=== PATIENT | female | born 1960 | race Hispanic/Latino ===

== ENCOUNTER 2016-08-04 23:00 | Inpatient (IN) | payer MEDICARE ==
[2016-08-04] MEDS ORDERED: NACL 0.9% 1000 ML 2,000 ML ONE (23:32)
[2016-08-04] MEDS ORDERED: NACL 0.9% 1000 ML 1,000 ML IV ONE (23:32)
[2016-08-04] MEDS ORDERED: ARTIFICIAL TEARS OPHTH OINT OU PRN (23:33)
[2016-08-04] MEDS ORDERED: VASELINE LIP THERAPY TP PRN (23:33)
[2016-08-04] MEDS ORDERED: NACL 0.9% 1000 ML 2,000 ML IV ONE (23:35)
--- NOTE | 2016-08-04 23:39 | Emergency Department Report ---
Blank Doc - Documentation Documentation: EMERGENCY DEPARTMENT PROCEDURE NOTE: ENDOTRACHEAL INTUBATION DATE 08/[address] Marquez DIAGNOSIS altered mental status PROCEDURE PERFORMED Endotracheal Intubation. ANESTHESIA Ketamine administered for sedation preintubation COMPLICATIONS None. INDICATIONS FOR PROCEDURE The patient is [id number] s/p respiratory distress/altered emtnal status. The patient is in need of airway maintenance and protection. DESCRIPTION OF PROCEDURE IN DETAIL The patient was lying in the supine position. Preoxygenation via [facemask + BVM ] was provided for a minimum of 3 minutes. The patient had continuous cardiac as well as pulse oximetry monitoring during the procedure. Rapid sequence induction was provided by administration of KETAMINE An adult glidescope was used to directly visualize the vocal cords. 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 A 8mm endotracheal tube was visualized advancing along the bougie between the cords to a level of 22cm at lipTube placement was also noted by fogging in the tube, equal and bilateral breath sounds, no sounds over the epigastrium, and end-tidal colorimetric monitoring. The cuff was then inflated with 10ccs of air and the tube secured using a commercially available device. Respiratory therapy at bedside applied ventilator Supervised by Dr. Marquez
--- NOTE | 2016-08-04 23:51 | Emergency Department Report ---
ED General Adult HPI - General Chief complaint: Chest Pain Stated complaint: GENERAL ILLNESS Time Seen by Provider: 08/04/16 23:30 Source: EMS (verbal report received from EMS. ems notes not available at time of chart dictation), RN notes reviewed, old records reviewed Mode of arrival: Stretcher Limitations: Altered Mental Status - History of Present Illness Initial comments: This is a 56-year-old female. She is previously unknown to me. As per review of past medical records, patient has a history of COPD, cardiomyopathy, known history of stents, underlying psychiatric disease, ejection fraction of 40-45%, who presents to the ER with altered mental status in the context of a probable Vicodin overdose. As per verbal report from EMS, the overdose happened at least 2-3 hours prior to presentation. EMS reports that the patient was altered at home, sitting on a porch, when family contacted 911. Upon arrival to the ER, the patient was altered, combative, would not respond to verbal the escalation techniques or show of force, was noted to be hypoxic. Because of this, the patient was intubated. The patient was placed on a nasal cannula at 15 L/m, she received bag valve mask ventilation, and she was induced with 100 mg of ketamine. The patient was intubated with video laryngoscopy and bougie assistance by physician Asst. Bhatia under my direct supervision. The patient did not desaturate. Immediately after intubation, the patient was paralyzed with rocuronium. Shortly after intubation, the patient was noted to be hypotensive with a blood pressure in the 70s, and 2 L of IV fluid were ordered wide open. Patient's initial EKG was somewhat concerning for acute coronary syndrome, the EKG was transmitted to the prescription clerk, Dr. Bettencourt. Given history of altered mental status, ingestion/overdose, hypoxia requiring intubation, Dr. Bettencourt did not recommend activation of the catheterization lab. In addition, an orogastric tube was placed, and coffee-ground material was returned, and a guaiac examination demonstrated the patient was guaiac positive with brown stool. Therefore, the patient is not a thrombolysis candidate, she sounded appropriate candidate for the catheterization lab, she is appropriate for systemic anticoagulation at this time. Furthermore, right-sided cardiac leads were not consistent with inferior wall STEMI. Furthermore, prior EKG from 07/06/[address] abnormality in the inferior leads. The case was discussed with the integration analyst on-call, Dr. Cannon, who agreed to see her in consultation, and agreed with initiation of Protonix. The case was discussed with the critical care physician, Dr. Martin, who agreed with placement in the ICU. The patient is not a charcoal candidate if she presented more than one hour after ingestion. Laboratory studies, CT scan of the brain are pending. Because of suicidality, a 1013 form is filled out. -: unknown Consistency: constant Improves with: none Worsens with: none Associated Symptoms: other (per hpi) - Related Data Home Medications Medication Instructions Recorded Confirmed Last Taken Methocarbamol [Robaxin TAB] 750 mg PO BID 10/28/14 07/16/16 1 Day Ago Omeprazole [PriLOSEC] 40 mg PO BID 10/28/14 07/16/16 1 Day Ago Previous Rx's Medication Instructions Recorded Last Taken Type ALBUTEROL Inhaler [ProAir HFA 2 puff IH QID PRN #1 inhalation 10/31/14 1 Day Ago Rx Inhaler] Calc Carb/Vit D 500 mg-200 Uni 2 each PO BID tablet 10/31/14 1 Day Ago Rx [Oysco D 500 mg-200 Unit] oxyCODONE /ACETAMINOPHEN [Percocet 1 tab PO Q6HR PRN #20 tablet 10/31/14 1 Day Ago Rx 5/325 mg] Aspirin EC [Aspirin Enteric Coated 81 mg PO QDAY #30 tablet 07/16/16 Unknown Rx TAB] Clopidogrel [Plavix] 75 mg PO QDAY #30 tablet 07/16/16 Unknown Rx Furosemide [Lasix TAB] 20 mg PO QDAY #30 tablet 07/16/16 Unknown Rx Ipratropium/Albuterol Sulfate 1 ampul IH TIDRT #100 ampul.neb 07/16/16 Unknown Rx [Duoneb 0.5 mg-3 mg/3 ml Soln] Levofloxacin [Levaquin TAB] 500 mg PO QDAY #7 tablet 07/16/16 Unknown Rx Levofloxacin [Levaquin TAB] 750 mg PO Q24H #5 tablet 07/16/16 Unknown Rx Lisinopril [Zestril TAB] 10 mg PO QDAY #30 tablet 07/16/16 Unknown Rx Metoprolol Xl [Metoprolol 100 mg PO QDAY #30 tablet 07/16/16 Unknown Rx SUCCINATE ER TAB] Potassium Chloride [K-Dur] 20 meq PO Q12H #30 tablet 07/16/16 Unknown Rx Prednisone [predniSONE] 10 mg PO QDAY #40 tab 07/16/16 Unknown Rx Venlafaxine HCl [Venlafaxine] 100 mg PO TIDWM #30 tablet 07/16/16 Unknown Rx Venlafaxine [Effexor] 75 mg PO TID #30 tablet 07/16/16 Unknown Rx predniSONE [Deltasone] 50 mg PO QDAY #8 tab 07/16/16 Unknown Rx Allergies Allergy/AdvReac Type Severity Reaction Status Date / Time phenobarbital Allergy Unknown Verified 10/28/14 09:33 ED Review of Systems ROS: Stated complaint: GENERAL ILLNESS Other details as noted in HPI Comment: Unobtainable due to pts medical conditions ED Past Medical Hx - Past Medical History Hx Hypertension: Yes Hx Heart Attack/AMI: Yes (stent placed June 2016) Hx Congestive Heart Failure: No (patient denies) Hx Diabetes: No Hx GERD: Yes Hx Liver Disease: Yes (HEP C) Hx Asthma: No Hx COPD: Yes (3 liter home oxygen) - Surgical History Hx Coronary Stent: Yes (June 2016) Additional Surgical History: RONNY, heart stents - Social History Smoking Status: Unknown if ever smoked - Medications Home Medications: Home Medications Medication Instructions Recorded Confirmed Last Taken Type Methocarbamol [Robaxin TAB] 750 mg PO BID 10/28/14 07/16/16 1 Day Ago History Omeprazole [PriLOSEC] 40 mg PO BID 10/28/14 07/16/16 1 Day Ago History ALBUTEROL Inhaler [ProAir HFA 2 puff IH QID PRN #1 inhalation 10/31/14 07/16/16 1 Day Ago Rx Inhaler] Calc Carb/Vit D 500 mg-200 Uni 2 each PO BID tablet 10/31/14 07/16/16 1 Day Ago Rx [Oysco D 500 mg-200 Unit] oxyCODONE /ACETAMINOPHEN [Percocet 1 tab PO Q6HR PRN #20 tablet 10/31/14 1 Day Ago Rx 5/325 mg] Aspirin EC [Aspirin Enteric Coated 81 mg PO QDAY #30 tablet 07/16/16 Unknown Rx TAB] Clopidogrel [Plavix] 75 mg PO QDAY #30 tablet 07/16/16 Unknown Rx Furosemide [Lasix TAB] 20 mg PO QDAY #30 tablet 07/16/16 Unknown Rx Ipratropium/Albuterol Sulfate 1 ampul IH TIDRT #100 ampul.neb 07/16/16 Unknown Rx [Duoneb 0.5 mg-3 mg/3 ml Soln] Levofloxacin [Levaquin TAB] 500 mg PO QDAY #7 tablet 07/16/16 Unknown Rx Levofloxacin [Levaquin TAB] 750 mg PO Q24H #5 tablet 07/16/16 Unknown Rx Lisinopril [Zestril TAB] 10 mg PO QDAY #30 tablet 07/16/16 Unknown Rx Metoprolol Xl [Metoprolol 100 mg PO QDAY #30 tablet 07/16/16 Unknown Rx SUCCINATE ER TAB] Potassium Chloride [K-Dur] 20 meq PO Q12H #30 tablet 07/16/16 Unknown Rx Prednisone [predniSONE] 10 mg PO QDAY #40 tab 07/16/16 Unknown Rx Venlafaxine HCl [Venlafaxine] 100 mg PO TIDWM #30 tablet 07/16/16 Unknown Rx Venlafaxine [Effexor] 75 mg PO TID #30 tablet 07/16/16 Unknown Rx predniSONE [Deltasone] 50 mg PO QDAY #8 tab 07/16/16 Unknown Rx ED Physical Exam - General Limitations: No Limitations, Altered Mental Status General appearance: anxious, in distress - Head Head exam: Present: atraumatic, normocephalic - Eye Eye exam: Present: normal appearance, other (patient's pupils are small but reactive to light) - ENT ENT exam: Present: normal exam, mucous membranes dry, other (copious secretions noted in the oropharynx) - Neck Neck exam: Present: normal inspection, full ROM. Absent: tenderness, meningismus - Respiratory Respiratory exam: Present: respiratory distress. Absent: wheezes, rales, rhonchi, stridor - Cardiovascular Cardiovascular Exam: Present: normal rhythm, tachycardia, normal heart sounds. Absent: systolic murmur, diastolic murmur, rubs, gallop - GI/Abdominal GI/Abdominal exam: Present: soft, normal bowel sounds, other (old-appearing ecchymoses are noted on the anterior abdominal wall). Absent: distended, tenderness, guarding, rebound, rigid, pulsatile mass - Rectal Rectal exam: Present: heme (+) stool, other (Brown stool is noted on rectal examination) - External exam: Present: normal external exam - Extremities Exam Extremities exam: Present: normal inspection, full ROM, normal capillary refill. Absent: calf tenderness - Back Exam Back exam: Present: normal inspection. Absent: paraspinal tenderness - Neurological Exam Neurological exam: Present: altered, other (patient is moving for extremity spontaneously prior to intubation) - Psychiatric Psychiatric exam: Present: suicidal ideation - Skin Skin exam: Present: ecchymosis ED Course Vital Signs 08/04/16 08/04/16 08/04/16 23:08 23:20 23:26 Temperature Pulse Rate 125 H 114 H 116 H Respiratory 25 H 14 18 Rate Blood Pressure 78/32 O2 Sat by Pulse 77 L Oximetry 08/04/16 08/04/16 08/04/16 23:30 23:32 23:36 Temperature 98.4 F Pulse Rate 114 H 116 H Respiratory 18 19 Rate Blood Pressure 78/32 78/32 O2 Sat by Pulse Oximetry 08/04/16 08/04/16 08/04/16 23:40 23:46 23:50 Temperature Pulse Rate 117 H 121 H 119 H Respiratory 18 15 22 Rate Blood Pressure 78/32 78/32 78/32 O2 Sat by Pulse 76 L Oximetry 08/04/16 08/05/16 08/05/16 23:56 00:00 00:05 Temperature Pulse Rate 116 H 115 H 115 H Respiratory 18 18 Rate Blood Pressure 131/52 130/53 130/53 O2 Sat by Pulse 100 100 Oximetry 08/05/16 08/05/16 08/05/16 00:06 00:10 00:15 Temperature Pulse Rate 116 H 116 H 115 H Respiratory 18 18 18 Rate Blood Pressure 130/53 130/53 129/48 O2 Sat by Pulse 100 99 Oximetry 08/05/16 08/05/16 08/05/16 00:20 00:26 00:30 Temperature Pulse Rate 117 H 117 H 116 H Respiratory 18 18 23 Rate Blood Pressure 129/48 129/48 120/52 O2 Sat by Pulse 100 100 100 Oximetry 08/05/16 08/05/16 08/05/16 00:36 00:40 00:45 Temperature Pulse Rate 115 H 115 H 115 H Respiratory 23 23 23 Rate Blood Pressure 120/52 120/52 121/51 O2 Sat by Pulse 99 99 99 Oximetry 08/05/16 08/05/16 08/05/16 00:50 00:56 01:00 Temperature Pulse Rate 114 H 114 H 114 H Respiratory 23 23 23 Rate Blood Pressure 121/51 121/51 113/55 O2 Sat by Pulse 99 98 99 Oximetry 08/05/16 08/05/16 08/05/16 01:06 01:40 01:46 Temperature Pulse Rate 114 H 112 H 115 H Respiratory 23 18 23 Rate Blood Pressure 113/55 113/55 113/55 O2 Sat by Pulse 99 Oximetry 08/05/16 08/05/16 08/05/16 01:51 01:56 02:00 Temperature Pulse Rate 111 H 111 H 110 H Respiratory 17 23 23 Rate Blood Pressure 113/55 113/55 77/40 O2 Sat by Pulse 97 98 97 Oximetry 08/05/16 08/05/16 08/05/16 02:06 02:10 02:16 Temperature Pulse Rate 110 H 113 H 106 H Respiratory 23 20 20 Rate Blood Pressure 83/41 113/55 78/41 O2 Sat by Pulse 98 97 95 Oximetry 08/05/16 08/05/16 08/05/16 02:20 02:26 02:30 Temperature Pulse Rate 117 H 115 H Respiratory 23 23 Rate Blood Pressure 78/41 78/41 78/41 O2 Sat by Pulse 95 94 94 Oximetry 08/05/16 08/05/16 08/05/16 02:36 02:40 02:46 Temperature Pulse Rate 118 H 117 H 117 H Respiratory 20 23 23 Rate Blood Pressure 78/41 78/41 78/41 O2 Sat by Pulse 95 95 96 Oximetry 08/05/16 08/05/16 08/05/16 02:50 02:56 03:00 Temperature Pulse Rate 117 H 116 H 116 H Respiratory 23 23 23 Rate Blood Pressure 85/46 85/46 81/42 O2 Sat by Pulse 95 96 96 Oximetry 08/05/16 08/05/16 08/05/16 03:06 03:10 03:15 Temperature Pulse Rate 114 H 111 H 111 H Respiratory 23 23 23 Rate Blood Pressure 81/42 71/40 74/40 O2 Sat by Pulse 97 95 97 Oximetry 08/05/16 08/05/16 08/05/16 03:20 03:25 03:30 Temperature Pulse Rate 109 H 106 H 105 H Respiratory 23 23 23 Rate Blood Pressure 69/40 79/39 80/42 O2 Sat by Pulse 97 Oximetry 08/05/16 08/05/16 08/05/16 03:35 03:40 03:45 Temperature Pulse Rate 102 H 100 H 99 H Respiratory 23 23 20 Rate Blood Pressure 76/40 76/40 72/40 O2 Sat by Pulse 95 96 97 Oximetry 08/05/16 08/05/16 08/05/16 03:50 03:55 04:00 Temperature Pulse Rate 99 H 96 H 95 H Respiratory 23 23 23 Rate Blood Pressure 75/42 84/45 88/46 O2 Sat by Pulse 96 Oximetry 08/05/16 08/05/16 08/05/16 04:05 04:10 04:15 Temperature Pulse Rate 93 H 92 H 92 H Respiratory 23 25 H 25 H Rate Blood Pressure 85/45 85/44 85/46 O2 Sat by Pulse 96 97 Oximetry 08/05/16 08/05/16 08/05/16 04:20 04:25 04:30 Temperature Pulse Rate 91 H 91 H 91 H Respiratory 25 H 25 H 24 Rate Blood Pressure 90/48 86/47 94/50 O2 Sat by Pulse 96 96 Oximetry 08/05/16 04:35 Temperature Pulse Rate 91 H Respiratory 25 H Rate Blood Pressure 93/45 O2 Sat by Pulse 95 Oximetry - Reevaluation(s) Reevaluation #1: 08/05/16 00:22 Differential diagnosis: Suicidality, upper GI bleed, dehydration, UTI, pneumonia , polysubstance abuse, intracranial hemorrhage Assessment and plan: 56-year-old female with altered mental status requiring intubation and context of probable overdose. Multiple issues going on this time. Cardiology, gastroenterology, critical care page. Laboratory studies are pending. X-ray of the chest does not suggest pneumonia. Patient hemodynamically stable at this time. Patient will require admission once all of her diagnostics have returned. She will require a 1013 for suicidality. Reevaluation #2: 08/05/16 01:52 laboratory studies reviewed and are unremarkable. Noncontrast CT scan of the brain is grossly unremarkable. Formal radiology interpretation is pending. The case is presented to the Hospital physician, Dr. Kemp, who accepts the patient to her service. Reevaluation #3: 08/05/16 02:10 ct head negative d/w Sofia at poison control center recommends repeat aspirin level If aspirin level going down, no need to repeat. If aspirin level going up, they recommend repeating aspirin level every 2 hours until a level of 30 is obtained. At that time, they recommended potassium maintenance at greater than 4, arterial blood gas, bmp, and requested callback for further management recommendations. ct head negative patient hypotensive will place central line 08/05/16 02:12 08/05/16 02:13 08/05/16 02:13 08/05/16 02:14 Reevaluation #4: 08/05/16 03:11 repeat laboratory studies ordered. We discussed with Poison Control Center. respiratory rate currently 23. Initial ABG demonstrates respiratory acidosis. Repeat ABG has been ordered. Reevaluation #5: 08/05/16 04:30 repeat arterial blood gas looking improved, although still acidotic. Repeat salicylate level has decreased. - Central Line Placement Right IJ Consent Obtained: emergent situation Time Out Performed: Yes Patient Placed on Monitor/Pulse Ox: Yes MD Prep: mask, gown, gloves Central Line Prep: Povidone-Iodine 1%, Chlorhexidine scrub Local Anesthesia Used: Lidocaine 1%, with Epi Amount of Anesthesia Used (mls): 5 Ultrasound Used for Placement: Yes Central Line Lumen Inserted: triple Bloods Obtained for Lab: No Central Line Position: good blood return, sutured in place with 2-0 Dressing Applied: Tegaderm Post Procedure X-Ray: tip of catheter in good p Patient Tolerated Procedure: well Complications: none - EJ/Peripheral Line Neck L Time Out Performed: No (emergency) Indications: multiple IV sites needed Skin Cleansed in Sterile Fashion: Yes Size: 20 Dressing Placed: Tegaderm Patient Tolerated Procedure: well Additional Comments: The physician assistant operations manager under my direct supervision placed a left-sided external jugular IV to obtain IV access - Intubation Time Out Performed: Yes Sedative: Ketamine Mg Given: 100 Paralytic: Rocuronium Mg Given: 100 Laryngoscope: fiberoptic video scope Assist Device Used: Bougie ET Tube Size: 8 Tube Secured Depth (cm): 22 Tube Secured Location: teeth Tube Placement Confirmation: visualized tube passing t Patient Tolerated Procedure: well Intubation Complications: none Additional Comments: Patient is placed on a nonrebreather, and then once she is induced with ketamine , transitioned to nasal cannula at 15 L/m. She receives [id number] ventilation without desaturation. The physician assistant operations manager under my direct supervision performed video laryngoscopy, introduced a bougie catheter tip into the patient's trachea, and successfully intubated the patient without difficulty. ED Medical Decision Making - Lab Data Result diagrams: 08/07/16 04:00 08/07/16 04:00 Vital Signs 08/04/16 08/05/16 23:08 00:05 Pulse Rate 125 H 115 H Respiratory 25 H Rate Blood Pressure 130/53 O2 Sat by Pulse 77 L 100 Oximetry - EKG Data -: EKG Interpreted by Me - EKG Data 08/05/16 00:26 EKG #1 at 22:59 Sinus tachycardia, 118 bpm, normal axis, normal intervals, Q waves noted in the inferior leads, nonspecific ST abnormality in the inferior leads, as per discussion with prescription clerk, Dr. Bettencourt, this is not new STEMI criteria. EKG #2 demonstrates sinus, 117 bpm, normal intervals, normal axis, persistent ST abnormality in the inferior leads, not consistent with STEMI as per discussion with interventional cardiology Dr. Bettencourt. EKG #3, right-sided leads, demonstrates normal sinus, 114 beats for minute, borderline left axis deviation, persistent ST amount, not morphologically consistent with STEMI as per discussion with prescription clerk, Dr. Bettencourt. Furthermore, these EKGs appeared to be mostly unchanged from a prior EKG from , which demonstrated persistent ST abnormality and Q waves in inferior leads. - Radiology Data Radiology results: report reviewed, image reviewed interpreted by me: X-ray of the chest demonstrates spinal hardware, appropriate positioning of endotracheal tube and oral gastric tube. Critical Care Time: Yes Critical care time in (mins) excluding proc time.: 60 Critical care attestation.: If time is entered above; I have spent that time in minutes in the direct care of this critically ill patient, excluding procedure time. Critical Care Time: Critical care time included multiple bedside evaluations, interpretation of laboratory studies, radiology studies, time spent caring for a critically ill patient with respiratory failure, with multiple issues going on, including polysubstance overdose, GI bleed, consultation with multiple services, including critical care, gastroenterology, cardiology. This does not include procedure time. ED Disposition Clinical Impression: Acute respiratory failure, Overdose, GI bleed Disposition: OP ADMIT IP TO THIS HOSP Is pt being admited?: Yes Condition: Critical
[2016-08-05 00:35] LABS: Mean Corpuscular HGB Conc 28 % (30-34); Mean Corpuscular Volume 73 fl (79-97); Platelet Count 189 K/mm3 (140-440); White Blood Count 18.3 K/mm3 (4.5-11.0)
[2016-08-05 00:36] LABS: Hemoglobin 10.5 gm/dl (10.1-14.3); Mean Corpuscular Hemoglobin 21 pg (28-32); Red Cell Distribution Width 20.7 % (13.2-15.2)
[2016-08-05] MEDS: fentaNYL DRIP Premix 2,000 MCG/100 ML BAG IV SCH ×4 (00:40→23:51)
--- NOTE | 2016-08-05 00:43 | XRay Report ---
FINAL REPORT EXAM: XR CHEST 1V AP HISTORY: chest pain COMPARISON: July 14, 2016 FINDINGS: Frontal view(s) of the chest obtained. Heart borderline enlarged. ETT is in place. Distal tip approximately 2.5 centimeters in the carlos manuel in satisfactory position. NG tube is present. Distal tip extends at least to the mid stomach. Mild prominence of the interstitium similar prior study concerning for mild edema. Possible trace left-sided effusion. No pneumothorax. IMPRESSION: Interval placement of ET tube and NG tube in gross satisfactory position. Stable mild pulmonary congestion.
[2016-08-05 00:49] LABS: Hematocrit 36.4 % (30.3-42.9)
[2016-08-05] MEDS: PROTONIX 80 MG in NACL 0.9% 100 ML IV SCH ×3 (00:51→17:57)
[2016-08-05 00:55] LABS: Alanine Aminotransferase 12 units/L (7-56); Albumin 3.7 g/dL (3.9-5); Albumin/Globulin Ratio 1.2 %; Alkaline Phosphatase 103 units/L (35-129); Anion Gap 18 mmol/L; Blood Urea Nitrogen 27 mg/dL (7-17); Calcium 9.1 mg/dL (8.4-10.2); Carbon Dioxide 21 mmol/L (22-30); Chloride 109.7 mmol/L (98-107); Creatine Kinase 75 units/L (30-135); Glucose 125 mg/dL (65-100); Potassium 3.9 mmol/L (3.6-5.0); Sodium 145 mmol/L (137-145); Total Protein 6.7 g/dL (6.3-8.2)
[2016-08-05 00:59] LABS: INR 1.26 (0.87-1.13)
[2016-08-05 01:00] LABS: Partial Thromboplastin Time 40.4 Sec. (24.2-36.6)
[2016-08-05 01:12] LABS: Urine Drugs of Abuse Note Disclamer
[2016-08-05 01:17] LABS: Bilirubin,Urine NEG (Negative); Blood,Urine NEG (Negative); Ketones,Urine 20 mg/dL (Negative); Leukocyte Esterase,Urine NEG (Negative); Nitrite,Urine NEG (Negative); Urobilinogen,Urine < 2.0 mg/dL (<2.0); WBC,Urine < 1.0 /HPF (0.0-6.0)
[2016-08-05 01:47] LABS: ISTAT Base Excess -7; ISTAT HCO3 21.2; ISTAT PCO2 56.2 (35-45); ISTAT PH 7.185 (7.35-7.45); ISTAT PO2 381 (80-105); ISTAT SO2 100; ISTAT TCO2 23
--- NOTE | 2016-08-05 02:03 | Cat Scan Report ---
FINAL REPORT PROCEDURE: CT HEAD/BRAIN WO CON TECHNIQUE: Computerized tomography of the head was performed without contrast material. HISTORY: ams COMPARISON: No prior studies are available for comparison. FINDINGS: Skull and scalp: Normal. Paranasal sinuses: Normal. Ventricles and subarachnoid spaces: Normal. Cerebrum: No evidence of hemorrhage, acute infarction or mass . Cerebellum and brainstem: No evidence of hemorrhage, acute infarction or mass. Vasculature: Normal. Comments: None. IMPRESSION: There is no evidence of an acute intracranial process.
[2016-08-05] MEDS ORDERED: XYLOCAINE 2%/EPI 1:100,000 INFILTRATI ONE (02:15)
[2016-08-05] MEDS ORDERED: LEVOPHED DRIP 4 MG/NS 250 ML 4 MG/250 ML BAG IV ONE (02:20)
[2016-08-05] MEDS ORDERED: NACL 0.9% 500 ML 500 ML IV ONE (02:23)
[2016-08-05] MEDS ORDERED: ZOFRAN IV PRN (02:23)
[2016-08-05] MEDS ORDERED: VANCOMYCIN/NS 1 GM/250 ML 1 GM/250 ML BAG IV ONE (02:27)
--- NOTE | 2016-08-05 02:30 | History and Physical Report ---
History of Present Illness Date of examination: 08/05/16 History of present illness: This is a 56-year-old woman with a history of hypertension, GERD, depression, COPD, coronary artery disease, CHF was brought to the emergency room because she supposed noted to be confused by family and also combative. She was also hypoxic and was intubated. Family is concerned about drug overdose. Review of system is unobtainable. Patient was noted to have coffee-ground emesis in the emergency room, protonic strip was started. She is currently hypertensive with systolic blood pressure of 77. Old chart reviewed PAST SURGICAL HISTORY: None SOCIAL HISTORY: Unknown FAMILY HISTORY: Unknown Medications and Allergies Allergies Allergy/AdvReac Type Severity Reaction Status Date / Time phenobarbital Allergy Unknown Verified 10/28/14 09:33 clopidogrel bisulfate AdvReac Bleeding Verified 07/14/16 16:33 [From Plavix] Home Medications Medication Instructions Recorded Confirmed Last Taken Type Methocarbamol [Robaxin TAB] 750 mg PO BID 10/28/14 07/16/16 1 Day Ago History Omeprazole [PriLOSEC] 40 mg PO BID 10/28/14 07/16/16 1 Day Ago History ALBUTEROL Inhaler [ProAir HFA 2 puff IH QID PRN #1 inhalation 10/31/14 07/16/16 1 Day Ago Rx Inhaler] Calc Carb/Vit D 500 mg-200 Uni 2 each PO BID tablet 10/31/14 07/16/16 1 Day Ago Rx [Oysco D 500 mg-200 Unit] oxyCODONE /ACETAMINOPHEN [Percocet 1 tab PO Q6HR PRN #20 tablet 10/31/14 1 Day Ago Rx 5/325 mg] Aspirin EC [Aspirin Enteric Coated 81 mg PO QDAY #30 tablet 07/16/16 Unknown Rx TAB] Clopidogrel [Plavix] 75 mg PO QDAY #30 tablet 07/16/16 Unknown Rx Furosemide [Lasix TAB] 20 mg PO QDAY #30 tablet 07/16/16 Unknown Rx Ipratropium/Albuterol Sulfate 1 ampul IH TIDRT #100 ampul.neb 07/16/16 Unknown Rx [Duoneb 0.5 mg-3 mg/3 ml Soln] Levofloxacin [Levaquin TAB] 500 mg PO QDAY #7 tablet 07/16/16 Unknown Rx Levofloxacin [Levaquin TAB] 750 mg PO Q24H #5 tablet 07/16/16 Unknown Rx Lisinopril [Zestril TAB] 10 mg PO QDAY #30 tablet 07/16/16 Unknown Rx Metoprolol Xl [Metoprolol 100 mg PO QDAY #30 tablet 07/16/16 Unknown Rx SUCCINATE ER TAB] Potassium Chloride [K-Dur] 20 meq PO Q12H #30 tablet 07/16/16 Unknown Rx Prednisone [predniSONE] 10 mg PO QDAY #40 tab 07/16/16 Unknown Rx Venlafaxine HCl [Venlafaxine] 100 mg PO TIDWM #30 tablet 07/16/16 Unknown Rx Venlafaxine [Effexor] 75 mg PO TID #30 tablet 07/16/16 Unknown Rx predniSONE [Deltasone] 50 mg PO QDAY #8 tab 07/16/16 Unknown Rx Active Meds: Active Medications Hydrophilic Ointment (Vaseline Lip Therapy) 1 applic TP Q2HR PRN PRN Reason: Dry Lips Fentanyl Citrate (Fentanyl Drip Premix) 2,000 mcg in 100 mls @ 3.969 mls/hr IV TITR DOMINICK; 1 MCG/KG/HR PRN Reason: Protocol Last Admin: 08/05/16 00:40 Dose: 1 mcg/kg/hr, 3.969 mls/hr Sodium Chloride (Nacl 0.9% 1000 Ml) 1,000 mls @ 42 mls/hr IV ONCE ONE Stop: 08/05/16 23:20 Last Admin: 08/05/16 00:01 Dose: 42 mls/hr Pantoprazole Sodium 80 mg/ (Sodium Chloride) 100 mls @ 10 mls/hr IV DIRECT DOMINICK PRN Reason: 8 MG/HR Last Admin: 08/05/16 00:51 Dose: 8 mg/hr, 10 mls/hr Sodium Chloride (Nacl 0.9% 500 Ml) 500 mls @ 999 mls/hr IV ONCE ONE Stop: 08/05/16 02:53 Norepinephrine 8 mg/ Sodium (Chloride) 250 mls @ 3.75 mls/hr IV TITR DOMINICK; 2 MCG /MIN PRN Reason: Protocol Piperacillin Sod/Tazobactam Sod (Zosyn/Ns 4.5gm/100ml) 4.5 gm in 100 mls @ 200 mls/hr IV Q8HR DOMINICK PRN Reason: Protocol Vancomycin HCl (Vancomycin/Ns 1 Gm/250 Ml) 1 gm in 250 mls @ 167.007 mls/hr IV ONCE ONE PRN Reason: Protocol Stop: 08/05/16 03:56 Multi-Ingred Cream/Lotion/Oil/Oint (Artificial Tears Ophth Oint) 1 applic OU Q4HR PRN PRN Reason: Dry Eye(s) Ondansetron HCl (Zofran) 4 mg IV Q8H PRN PRN Reason: N/V unrelieved by Reglan Exam - Physical Exam Narrative exam: Gen. appearance: Patient lying in bed, no apparent distress, intubated HEENT: Normocephalic, atraumatic, pupils equally round and reactive to light, unable to do extraocular movement , and no sclericterus,. No JVD or thyromegaly or nodule,neck supple, no carotid bruit ,mucous membranes moist, no exudate or erythema Heart: S1, S2, regular rate and rhythm Lungs: Clear to auscultation bilaterally, breathing comfortable Abdomen: Positive bowel sounds, soft, nondistended, no organomegaly Extremity: No edema, cyanosis, clubbing Skin: No rash, nodules, warm, dry Neuro: sedated - Constitutional Vitals: Temp Pulse Resp BP Pulse Ox 115 H 25 H 130/53 100 08/05/16 00:05 08/04/16 23:08 08/05/16 00:05 08/05/16 00:05 Results - Labs CBC & Chem 7: 08/05/16 03:49 08/05/16 00:06 Labs: Abnormal lab results 08/05/16 08/05/16 08/05/16 Range/Units 00:06 00:06 00:06 WBC 18.3 H (4.5-11.0) K/mm3 RBC 5.10 H (3.65-5.03) M/mm3 MCV 73 L (79-97) fl MCH 21 L (28-32) pg MCHC 28 L (30-34) % RDW 20.7 H (13.2-15.2) % PT 15.7 H (12.2-14.9) Sec. INR 1.26 H (0.87-1.13) APTT 40.4 H (24.2-36.6) Sec. POC ABG pH (7.35-7.45) POC ABG pCO2 (35-45) POC ABG pO2 (80-105) Chloride 109.7 H (98-107) mmol/L Carbon Dioxide 21 L (22-30) mmol/L BUN 27 H (7-17) mg/dL Glucose 125 H (65-100) mg/dL Albumin 3.7 L (3.9-5) g/dL 08/05/16 Range/Units 00:32 WBC (4.5-11.0) K/mm3 RBC (3.65-5.03) M/mm3 MCV (79-97) fl MCH (28-32) pg MCHC (30-34) % RDW (13.2-15.2) % PT (12.2-14.9) Sec. INR (0.87-1.13) APTT (24.2-36.6) Sec. POC ABG pH 7.185 L (7.35-7.45) POC ABG pCO2 56.2 H (35-45) POC ABG pO2 381 H (80-105) Chloride (98-107) mmol/L Carbon Dioxide (22-30) mmol/L BUN (7-17) mg/dL Glucose (65-100) mg/dL Albumin (3.9-5) g/dL - Imaging and Cardiology EKG: image reviewed Chest x-ray: image reviewed CT Scan - head: pending Assessment and Plan Acute Repiratory failure SIRS Coffee-ground emesis Possible Overdose COPD CHF Coronary artery disease GERD Admits medicine Give bolus of IV fluid, will hold further fluids given history of CHF start Levophed drip, IV Zosyn, vancomycin Check blood cultures, lactate Check cardiac enzymes, serial hemoglobin Continue Protonix drip, fentanyl Consult GI,critical care, and cardiology Psych consult once extubated, patient is 1013 DVT prophylaxis with SCD
[2016-08-05] MEDS ORDERED: VANCOMYCIN 1,500 MG in NACL 0.9% 500 ML 500 ML IV ONE (02:45)
[2016-08-05] MEDS: LEVOPHED 8 MG in NACL 0.9% 250ML 242 ML IV SCH ×4 (03:00→22:12)
--- NOTE | 2016-08-05 03:20 | Admit Criteria Form ---
Admission Criteria Documentation: RESPIRATORY FAILURE GRG Clinical Indications for Admission to Inpatient Care (Place 'X' for any and all applicable criteria): Hospital admission is needed for appropriate care of the patient because of acute respiratory failure or insufficiency as indicated by ANY ONE of the following(1)(2)(3)(4)(5)(6)(7)(8): [ X]I. Mechanical ventilation needed (acute invasive or noninvasive) [ ]II. Severe ventilation deficit as indicated by ANY ONE of the following (9) [ ]a) Respiratory acidosis (pH less than 7.32 and partial pressure of carbon dioxide greater than 40 mm Hg (5.3 kPa)) [ ]b) Partial pressure of carbon dioxide greater than 44 mm Hg (5.9 kPa ) (new) [ ]c) Airflow measurements less than 25% of predicted (eg, peak expiratory flow rate less than 100 L/minute) [ ]d) Forced vital capacity less than 15 mL/kg of ideal body weight, or 50% decrease in vital capacity from baseline [ ]III. Noncardiac pulmonary edema not resolving with rapid emergency treatment (8) [ ]IV. Severe respiratory distress as indicated by ANY ONE of the following: [ ]a) Severe tachypnea (respiratory rate greater than 30, greater than 45 for 6-month-old, greater than 60 for ) [ ]b) Severe hypoxemia (partial pressure of oxygen less than 50 mm Hg ( 6.7 kPa) on greater than 50% oxygen or partial pressure of oxygen to FIO2 ratio less than 200) [ ]c) Mental status deterioration from respiratory disease [ ]V. Airway obstruction or inadequate protection [A](10)(11) The original [employer] content created by [employer] has been revised. The portions of the content which have been revised are identified through the use of italic text or in bold, and [email or web address] has neither reviewed nor approved the modified material. All other unmodified content is copyright [employer]. Please see references footnoted in the original [employer] edition 2016 Admission Criteria Met: Yes
[2016-08-05 03:24] LABS: Creatine Kinase MB 3.1 ng/mL (0.0-4.0)
[2016-08-05] MEDS ORDERED: LEVOPHED DRIP 4 MG/NS 250 ML 4 MG/250 ML BAG IV SCH (03:40)
[2016-08-05 03:50] LABS: Basophils % (Manual) 0 % (0.0-1.8); Blastocytes % (Manual) 0 %; Eosinophils % (Manual) 0 % (0.0-4.3)
[2016-08-05 03:51] LABS: Anisocytosis 1+; Elliptocytes Few; Giant Platelets Few; Hypochromasia 2+; Polychromasia Few; Tear Drop Cells Few
[2016-08-05 03:52] LABS: Diff Status Complete
[2016-08-05 03:57] LABS: ISTAT Base Excess -9; ISTAT HCO3 18.1; ISTAT PCO2 39.5 (35-45); ISTAT PH 7.269 (7.35-7.45); ISTAT PO2 81 (80-105); ISTAT SO2 94; ISTAT TCO2 19
[2016-08-05 03:57] LABS: ISTAT Base Excess -7; ISTAT HCO3 19.7; ISTAT PH 7.269 (7.35-7.45); ISTAT PO2 32 (80-105); ISTAT SO2 54; ISTAT TCO2 21
[2016-08-05 04:01] LABS: Hemoglobin 8.8 gm/dl (10.1-14.3)
[2016-08-05 04:02] LABS: Hematocrit 31.2 % (30.3-42.9)
[2016-08-05 04:21] LABS: Creatine Kinase MB 2.1 ng/mL (0.0-4.0)
[2016-08-05 04:22] LABS: Creatine Kinase 58 units/L (30-135)
[2016-08-05] MEDS ORDERED: fentaNYL DRIP Premix 2,000 MCG/100 ML BAG IV ONE (04:26)
[2016-08-05] MEDS ORDERED: NACL 0.9% 1000 ML 1,000 ML ONE (04:31)
[2016-08-05 07:58] LABS: Hematocrit 31.4 % (30.3-42.9)
[2016-08-05] MEDS: ZOSYN/NS 4.5GM/100ML 4.5 GM/100 ML VIAL IV SCH ×3 (07:59→21:53)
[2016-08-05 08:00] LABS: Creatine Kinase 76 units/L (30-135)
--- NOTE | 2016-08-05 09:28 | XRay Report ---
Supine chest: Central line positioning. Compared to prior study of August 04 right jugular central line has been placed. The tip is partially obscured by spinal hardware but appears to be located at the proximal SVC. Nasogastric and endotracheal tubes remain unchanged in good positions. Mild increased bronchovascular markings are present throughout both lungs with normal-sized heart. Compared to the prior study the left hemidiaphragm is obscured raising suspicion of a new left basilar consolidation. Impressions: 1. Central line positioning as described. 2. Interval opacification of left lung base.
--- NOTE | 2016-08-05 09:44 | Gastroenterology Consultation ---
History of Present Illness - Reason for Consult Consult date: 08/05/16 coffee-ground emesis Requesting physician: MATTEO GONZALEZ - History of Present Illness Patient is a 56 y/o female admitted with AMS, in context of probable Vicodin overdose, who was hypoxic and intubated. Information received from chart review. Patient is currently intubated and sedated on Fentanyl gtt. No family at bedside. When NG tube was placed yesterday, coffee-ground material was retrieved. Stool noted to be brown, but guaiac positive. Patient is currently on Levaphed gtt due to hypotension. NG tube to intermittent suction with bile colored content. No active signs of bleeding today per nursing. PMH significant for COPD, CAD with stents, cardiomyopathy, CHF, HTN, GERD, and depression. Past History Past Medical History: CAD (cardiac stents), COPD, GERD, hypertension, other ( depression, cardiomyopathy,CHF) Medications and Allergies Allergies Allergy/AdvReac Type Severity Reaction Status Date / Time phenobarbital Allergy Unknown Verified 10/28/14 09:33 clopidogrel bisulfate AdvReac Bleeding Verified 07/14/16 16:33 [From Plavix] Home Medications Medication Instructions Recorded Confirmed Last Taken Type Methocarbamol [Robaxin TAB] 750 mg PO BID 10/28/14 07/16/16 1 Day Ago History Omeprazole [PriLOSEC] 40 mg PO BID 10/28/14 07/16/16 1 Day Ago History ALBUTEROL Inhaler [ProAir HFA 2 puff IH QID PRN #1 inhalation 10/31/14 07/16/16 1 Day Ago Rx Inhaler] Calc Carb/Vit D 500 mg-200 Uni 2 each PO BID tablet 10/31/14 07/16/16 1 Day Ago Rx [Oysco D 500 mg-200 Unit] oxyCODONE /ACETAMINOPHEN [Percocet 1 tab PO Q6HR PRN #20 tablet 10/31/14 1 Day Ago Rx 5/325 mg] Aspirin EC [Aspirin Enteric Coated 81 mg PO QDAY #30 tablet 07/16/16 Unknown Rx TAB] Clopidogrel [Plavix] 75 mg PO QDAY #30 tablet 07/16/16 Unknown Rx Furosemide [Lasix TAB] 20 mg PO QDAY #30 tablet 07/16/16 Unknown Rx Ipratropium/Albuterol Sulfate 1 ampul IH TIDRT #100 ampul.neb 07/16/16 Unknown Rx [Duoneb 0.5 mg-3 mg/3 ml Soln] Levofloxacin [Levaquin TAB] 500 mg PO QDAY #7 tablet 07/16/16 Unknown Rx Levofloxacin [Levaquin TAB] 750 mg PO Q24H #5 tablet 07/16/16 Unknown Rx Lisinopril [Zestril TAB] 10 mg PO QDAY #30 tablet 07/16/16 Unknown Rx Metoprolol Xl [Metoprolol 100 mg PO QDAY #30 tablet 07/16/16 Unknown Rx SUCCINATE ER TAB] Potassium Chloride [K-Dur] 20 meq PO Q12H #30 tablet 07/16/16 Unknown Rx Prednisone [predniSONE] 10 mg PO QDAY #40 tab 07/16/16 Unknown Rx Venlafaxine HCl [Venlafaxine] 100 mg PO TIDWM #30 tablet 07/16/16 Unknown Rx Venlafaxine [Effexor] 75 mg PO TID #30 tablet 07/16/16 Unknown Rx predniSONE [Deltasone] 50 mg PO QDAY #8 tab 07/16/16 Unknown Rx Active Meds: Active Medications Hydrophilic Ointment (Vaseline Lip Therapy) 1 applic TP Q2HR PRN PRN Reason: Dry Lips Fentanyl Citrate (Fentanyl Drip Premix) 2,000 mcg in 100 mls @ 3.969 mls/hr IV TITR DOMINICK; 1 MCG/KG/HR PRN Reason: Protocol Last Titration: 08/05/16 01:00 Dose: 4 mcg/kg/hr, 15.876 mls/hr Sodium Chloride (Nacl 0.9% 1000 Ml) 1,000 mls @ 42 mls/hr IV ONCE ONE Stop: 08/05/16 23:20 Last Admin: 08/05/16 00:01 Dose: 42 mls/hr Pantoprazole Sodium 80 mg/ (Sodium Chloride) 100 mls @ 10 mls/hr IV DIRECT DOMINICK PRN Reason: 8 MG/HR Last Admin: 08/05/16 07:59 Dose: 8 mg/hr, 10 mls/hr Norepinephrine 8 mg/ Sodium (Chloride) 250 mls @ 3.75 mls/hr IV TITR DOMINICK; 2 MCG /MIN PRN Reason: Protocol Last Titration: 08/05/16 07:03 Dose: 27 mcg/min, 50.62 mls/hr Piperacillin Sod/Tazobactam Sod (Zosyn/Ns 4.5gm/100ml) 4.5 gm in 100 mls @ 200 mls/hr IV Q8HR DOMINICK PRN Reason: Protocol Last Admin: 08/05/16 07:59 Dose: 200 mls/hr Vancomycin HCl 1,250 mg/ (Sodium Chloride) 275 mls @ 166.667 mls/hr IV Q12H DOMINICK Norepinephrine (Levophed Drip 4 Mg/Ns 250 Ml) 4 mg in 250 mls @ 7.5 mls/hr IV TITR DOMINICK; 2 MCG/MIN PRN Reason: Protocol Stop: 08/06/16 03:39 Multi-Ingred Cream/Lotion/Oil/Oint (Artificial Tears Ophth Oint) 1 applic OU Q4HR PRN PRN Reason: Dry Eye(s) Ondansetron HCl (Zofran) 4 mg IV Q8H PRN PRN Reason: N/V unrelieved by Reglan Review of Systems - Review of Systems ROS unobtainable: due to endotracheal tube Gastrointestinal: coffee ground emesis Exam - Constitutional Vital Signs: Temp Pulse Resp BP Pulse Ox 101.2 F H 144 H 19 64/28 97 08/05/16 08:22 08/05/16 06:46 08/05/16 06:46 08/05/16 06:46 08/05/16 06:46 General appearance: mild distress - Neck Neck: supple - Respiratory Respiratory: bilateral: CTA - Cardiovascular Heart Sounds: Present: S1 & S2 Extremities: No edema - Gastrointestinal General gastrointestinal: Present: soft, non-distended, normal bowel sounds - Integumentary Integumentary: Present: warm, dry - Neurologic Neurological: other (sedated) - Labs CBC & Chem 7: 08/05/16 07:15 08/05/16 00:06 Lab Results: Laboratory Results - last 24 hr 08/05/16 08/05/16 08/05/16 03:41 03:49 03:49 Hgb Hct POC ABG pH 7.269 L POC ABG pCO2 43.0 POC ABG pO2 32 L POC ABG HCO3 19.7 POC ABG Total CO2 21 POC ABG O2 Sat 54 POC ABG Base Excess -7 FiO2 50 Lactic Acid Total Creatine Kinase 58 CK-MB (CK-2) 2.1 CK-MB (CK-2) Rel Index 3.6 Troponin T < 0.010 Salicylates 3.5 08/05/16 08/05/16 08/05/16 03:49 03:49 03:50 Hgb 8.8 L Hct 31.2 POC ABG pH 7.269 L POC ABG pCO2 39.5 POC ABG pO2 81 POC ABG HCO3 18.1 POC ABG Total CO2 19 POC ABG O2 Sat 94 POC ABG Base Excess -9 FiO2 50 Lactic Acid 1.10 Total Creatine Kinase CK-MB (CK-2) CK-MB (CK-2) Rel Index Troponin T Salicylates 08/05/16 08/05/16 07:15 07:15 Hgb 9.0 L Hct 31.4 POC ABG pH POC ABG pCO2 POC ABG pO2 POC ABG HCO3 POC ABG Total CO2 POC ABG O2 Sat POC ABG Base Excess FiO2 Lactic Acid Total Creatine Kinase 76 CK-MB (CK-2) 2.0 CK-MB (CK-2) Rel Index 2.6 Troponin T < 0.010 Salicylates Assessment and Plan 1. coffee-ground emesis 2. acute respiratory failure 3. possibe overdose 4. SIRS -febrile with temp 101.2- blood cultures pending -hypotensive- on levophed gtt -intubated and sedated on fentanyl gtt -continue NG tube to low intermittent suction- bile colored content today -HBG 9.0-stable -continue to trend H&H and transfuse as needed -continue protonix gtt -no signs of active bleeding today -no recommendations for EGD at this time,unless overt bleeding is noted -will follow
[2016-08-05 10:42] LABS: Hematocrit 32.7 % (30.3-42.9); Hemoglobin 9.1 gm/dl (10.1-14.3)
[2016-08-05] MEDS ORDERED: PITRESSin 20 UNIT in NACL 0.9% 100 ML IV SCH (11:00)
[2016-08-05] MEDS ORDERED: LACTATED RINGERS 500 ML IV ONE (11:00)
[2016-08-05] MEDS: TYLENOL PO PRN ×2 (12:20→18:09)
[2016-08-05] MEDS: HABITROL TD SCH (12:20)
--- NOTE | 2016-08-05 12:26 | Consultation ---
History of Present Illness Consult date: 08/05/16 Requesting physician: TETE PARR Reason for consult: other (hypoxic respiratory failure on mechanical ventilatory support) History of present illness: This is a 56 year old woman, with a past medical history of COPD, cardiomyopathy, coronary artery stents, underlying psychiatric disorder, EF documented at 40-45% who presented to the ED via EMS with altered mental status in the setting of possible Vicodin overdose. In the ER she was combative and hypoxic- was intubated, post intubation was hypotensive requiring volume resuscitation. She has been admitted to the ICU and I have been consulted to assist with critical care and ventilator mangement Past History Past Medical History: CAD (cardiac stents), COPD, GERD, hypertension, other ( depression, cardiomyopathy,CHF) Medications and Allergies Allergies Allergy/AdvReac Type Severity Reaction Status Date / Time phenobarbital Allergy Unknown Verified 10/28/14 09:33 Home Medications Medication Instructions Recorded Confirmed Last Taken Type Methocarbamol [Robaxin TAB] 750 mg PO BID 10/28/14 07/16/16 1 Day Ago History Omeprazole [PriLOSEC] 40 mg PO BID 10/28/14 07/16/16 1 Day Ago History ALBUTEROL Inhaler [ProAir HFA 2 puff IH QID PRN #1 inhalation 10/31/14 07/16/16 1 Day Ago Rx Inhaler] Calc Carb/Vit D 500 mg-200 Uni 2 each PO BID tablet 10/31/14 07/16/16 1 Day Ago Rx [Oysco D 500 mg-200 Unit] oxyCODONE /ACETAMINOPHEN [Percocet 1 tab PO Q6HR PRN #20 tablet 10/31/14 1 Day Ago Rx 5/325 mg] Aspirin EC [Aspirin Enteric Coated 81 mg PO QDAY #30 tablet 07/16/16 08/08/16 Unknown Rx TAB] Clopidogrel [Plavix] 75 mg PO QDAY #30 tablet 07/16/16 08/08/16 Unknown Rx Furosemide [Lasix TAB] 20 mg PO QDAY #30 tablet 07/16/16 08/08/16 Unknown Rx Ipratropium/Albuterol Sulfate 1 ampul IH TIDRT #100 ampul.neb 07/16/16 Unknown Rx [Duoneb 0.5 mg-3 mg/3 ml Soln] Levofloxacin [Levaquin TAB] 500 mg PO QDAY #7 tablet 07/16/16 08/08/16 Unknown Rx Levofloxacin [Levaquin TAB] 750 mg PO Q24H #5 tablet 07/16/16 Unknown Rx Lisinopril [Zestril TAB] 10 mg PO QDAY #30 tablet 07/16/16 08/08/16 Unknown Rx Potassium Chloride [K-Dur] 20 meq PO Q12H #30 tablet 07/16/16 08/08/16 Unknown Rx Prednisone [predniSONE] 10 mg PO QDAY #40 tab 07/16/16 08/08/16 Unknown Rx Venlafaxine HCl [Venlafaxine] 100 mg PO TIDWM #30 tablet 07/16/16 08/08/16 Unknown Rx Venlafaxine [Effexor] 75 mg PO TID #30 tablet 07/16/16 08/08/16 Unknown Rx predniSONE [Deltasone] 50 mg PO QDAY #8 tab 07/16/16 08/08/16 Unknown Rx Baclofen [Lioresal] 10 mg PO BID 08/08/16 08/08/16 Unknown History ISOSORBIDE MONOnitrate [Imdur ER] 30 mg PO DAILY 08/08/16 08/08/16 Unknown History Metoprolol Xl [Metoprolol 200 mg PO BID 08/08/16 08/08/16 Unknown History SUCCINATE ER TAB] Pantoprazole [Protonix] 40 mg PO QDAY 08/08/16 08/08/16 Unknown History Sucralfate 1 gm PO BID 08/08/16 08/08/16 Unknown History amLODIPine [Norvasc] 10 mg PO DAILY 08/08/16 08/08/16 Unknown History Active Meds: Active Medications Acetaminophen (Tylenol) 650 mg PO Q4H PRN PRN Reason: Non Cardiac Pain or Temp>100.5 Last Admin: 08/05/16 12:20 Dose: 650 mg Hydrophilic Ointment (Vaseline Lip Therapy) 1 applic TP Q2HR PRN PRN Reason: Dry Lips Fentanyl Citrate (Fentanyl Drip Premix) 2,000 mcg in 100 mls @ 3.969 mls/hr IV TITR DOMINICK; 1 MCG/KG/HR PRN Reason: Protocol Last Titration: 08/05/16 11:55 Dose: 4 mcg/kg/hr, 15.876 mls/hr Pantoprazole Sodium 80 mg/ (Sodium Chloride) 100 mls @ 10 mls/hr IV DIRECT DOMINICK PRN Reason: 8 MG/HR Last Admin: 08/05/16 07:59 Dose: 8 mg/hr, 10 mls/hr Norepinephrine 8 mg/ Sodium (Chloride) 250 mls @ 3.75 mls/hr IV TITR DOMINICK; 2 MCG /MIN PRN Reason: Protocol Last Admin: 08/05/16 10:44 Dose: 27 mcg/min, 50.62 mls/hr Piperacillin Sod/Tazobactam Sod (Zosyn/Ns 4.5gm/100ml) 4.5 gm in 100 mls @ 200 mls/hr IV Q8HR DOMINICK PRN Reason: Protocol Last Admin: 08/05/16 07:59 Dose: 200 mls/hr Vancomycin HCl 1,250 mg/ (Sodium Chloride) 275 mls @ 166.667 mls/hr IV Q12H DOMINICK Norepinephrine (Levophed Drip 4 Mg/Ns 250 Ml) 4 mg in 250 mls @ 7.5 mls/hr IV TITR DOMINICK; 2 MCG/MIN PRN Reason: Protocol Stop: 08/06/16 03:39 Lactated Ringer's (Lactated Ringers) 1,000 mls @ 125 mls/hr IV DIRECT DOMINICK Vasopressin 20 unit/ Sodium (Chloride) 101 mls @ 9.09 mls/hr IV TITR DOMINICK; 0.03 UNITS/MIN PRN Reason: Protocol Methylprednisolone Sodium Succinate (Solu-Medrol) 60 mg IV Q8HR DOMINICK Last Admin: 08/05/16 12:20 Dose: 60 mg Multi-Ingred Cream/Lotion/Oil/Oint (Artificial Tears Ophth Oint) 1 applic OU Q4HR PRN PRN Reason: Dry Eye(s) Nicotine (Habitrol) 21 mg TD QDAY DOMINICK Last Admin: 08/05/16 12:20 Dose: 21 mg Ondansetron HCl (Zofran) 4 mg IV Q8H PRN PRN Reason: N/V unrelieved by Reglan Review of Systems ROS unobtainable: due to endotracheal tube Physical Examination Vital signs: Vital Signs Pulse Resp Pulse Ox 125 H 25 H 77 L 08/04/16 23:08 08/04/16 23:08 08/04/16 23:08 General appearance: no acute distress Eyes: non-icteric ENT: oropharynx moist Neck: supple, no lymphadenopathy, no JVD Effort: normal Ascultation: Bilateral: diminished breath sounds, rhonchi Cardiovascular: regular rate and rhythm Gastrointestinal: normoactive bowel sounds, soft, non-tender, non-distended Integumentary: normal Extremities: no cyanosis, no edema, pink and warm, pulses normal, no ischemia or petechiae Musculoskeletal: no deformities other (intubated, sedated) Results - Laboratory Findings CBC and BMP: 08/08/16 06:00 08/08/16 06:00 ABG POC ABG pH 7.269 (7.35-7.45) L 08/05/16 03:50 POC ABG pCO2 39.5 (35-45) 08/05/16 03:50 POC ABG pO2 81 (80-105) 08/05/16 03:50 POC ABG HCO3 18.1 08/05/16 03:50 POC ABG Total CO2 19 08/05/16 03:50 POC ABG O2 Sat 94 08/05/16 03:50 PT/INR, D-dimer PT 15.7 Sec. (12.2-14.9) H 08/05/16 00:06 INR 1.26 (0.87-1.13) H 08/05/16 00:06 Abnormal lab findings: Abnormal Labs 08/05/16 08/05/16 08/05/16 03:41 03:49 03:50 Hgb 8.8 L POC ABG pH 7.269 L 7.269 L POC ABG pO2 32 L 08/05/16 08/05/16 07:15 10:16 Hgb 9.0 L 9.1 L POC ABG pH POC ABG pO2 - Diagnostic Findings Chest x-ray: report reviewed Assessment and Plan - Patient Problems (1) Acute respiratory failure Current Visit: Yes Status: Acute Qualifiers: Respiratory failure complication: hypoxia Qualified Code(s): J96.01 - Acute respiratory failure with hypoxia Plan to address problem: Continue on mechanical ventilatory support VAP bundle addressed Aspiration precautions, HOB >40 VTE prophylaxis Stress ulcer prophylaxis Harley catheter in this critically ill patient Anxieolytic while monitoring blood pressure NGT to LISC- coffee ground emesis at presentation (2) Aspiration pneumonia Current Visit: Yes Status: Acute Qualifiers: Aspiration pneumonia type: A Laterality: L Lung location: L Plan to address problem: Antibiotics Aspiration precautions (3) Sepsis Current Visit: Yes Status: Acute Qualifiers: Sepsis type: S Plan to address problem: Continue with vasopressor support to keep MAP>65 Antibiotics while awaiting cultures (4) Overdose Current Visit: Yes Status: Acute Qualifiers: Encounter type: E Injury intent: I Plan to address problem: Monitor for arrthymias and side effects of narcotic overdose Monitor for urinary retention and constipation (5) Tobacco abuse Current Visit: No Status: Chronic Plan to address problem: Nicotine withdrawal precautions Nicotine patch (6) COPD (chronic obstructive pulmonary disease) Current Visit: Yes Status: Acute Qualifiers: COPD type: C Chronic bronchitis type: C Emphysema type: E Plan to address problem: Bronchodilators Steroids Mechanical ventilatory support (7) Coffee ground emesis Current Visit: Yes Status: Acute Plan to address problem: Continue with Pantoprazole Keep npo NGT to LIS Monitor HgH Critical care time in (mins) excluding proc time.: 65 Critical care attestation.: If time is entered above; I have spent that time in minutes in the direct care of this critically ill patient, excluding procedure time.
--- NOTE | 2016-08-05 13:09 | Consultation ---
History of Present Illness Consult date: 08/05/16 Consult reason: other (respiratory failure, abnormal ECG) History of present illness: Patient is a 56-year-old woman who was brought to the emergency room for altered mental status, the patient's family is reported to have stated that she had a suspected narcotic ingestion. Ultimately, the patient developed respiratory failure was intubated and is currently on the vent in the ICU. Cardiac consultation was requested for an abnormal ECG. 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 The patient was turned down for the STEMI indication and recommended for medical management. This morning, we were consulted for continued cardiac management and follow-up. A review of the EKGs reveals sinus rhythm with Q waves and inferior ST elevation leads 2, 3 and aVF. A review of the patient's recent cardiac history documents severe two-vessel disease, beginning with an inferior wall STEMI 3 months ago 04/2016 treated at [facility]. She was found on cardiac catheterization at that time to have complete occlusion of the RCA in its distal segment. Attempt at primary angioplasty was unsuccessful, due to what was described as extensive intraluminal thrombus and the procedure was ultimately aborted and the inferior STEMI was then managed medically. The second vessel disease of the mid LAD was recommended for staged coronary intervention. Last month at [facility], she underwent the staged angioplasty of the mid to distal LAD, treated with a bare metal stent. The right coronary artery remained occluded in his distal segment, with collaterals from the left perfusing the distal vessel. It therefore appears that the ST elevation on the current ECG likely represents a persistence of the ECG from inferior STEMI from 3 months ago, and does not represent a new ST elevation infarct. To corroborate the absence of a new STEMI , the patient's cardiac enzymes are normal. Past History Past Medical History: CAD (cardiac stents), COPD, GERD, hypertension, other ( depression, cardiomyopathy,CHF) Medications and Allergies Allergies Allergy/AdvReac Type Severity Reaction Status Date / Time phenobarbital Allergy Unknown Verified 10/28/14 09:33 clopidogrel bisulfate AdvReac Bleeding Verified 07/14/16 16:33 [From Plavix] Home Medications Medication Instructions Recorded Confirmed Last Taken Type Methocarbamol [Robaxin TAB] 750 mg PO BID 10/28/14 07/16/16 1 Day Ago History Omeprazole [PriLOSEC] 40 mg PO BID 10/28/14 07/16/16 1 Day Ago History ALBUTEROL Inhaler [ProAir HFA 2 puff IH QID PRN #1 inhalation 10/31/14 07/16/16 1 Day Ago Rx Inhaler] Calc Carb/Vit D 500 mg-200 Uni 2 each PO BID tablet 10/31/14 07/16/16 1 Day Ago Rx [Oysco D 500 mg-200 Unit] oxyCODONE /ACETAMINOPHEN [Percocet 1 tab PO Q6HR PRN #20 tablet 10/31/14 1 Day Ago Rx 5/325 mg] Aspirin EC [Aspirin Enteric Coated 81 mg PO QDAY #30 tablet 07/16/16 Unknown Rx TAB] Clopidogrel [Plavix] 75 mg PO QDAY #30 tablet 07/16/16 Unknown Rx Furosemide [Lasix TAB] 20 mg PO QDAY #30 tablet 07/16/16 Unknown Rx Ipratropium/Albuterol Sulfate 1 ampul IH TIDRT #100 ampul.neb 07/16/16 Unknown Rx [Duoneb 0.5 mg-3 mg/3 ml Soln] Levofloxacin [Levaquin TAB] 500 mg PO QDAY #7 tablet 07/16/16 Unknown Rx Levofloxacin [Levaquin TAB] 750 mg PO Q24H #5 tablet 07/16/16 Unknown Rx Lisinopril [Zestril TAB] 10 mg PO QDAY #30 tablet 07/16/16 Unknown Rx Metoprolol Xl [Metoprolol 100 mg PO QDAY #30 tablet 07/16/16 Unknown Rx SUCCINATE ER TAB] Potassium Chloride [K-Dur] 20 meq PO Q12H #30 tablet 07/16/16 Unknown Rx Prednisone [predniSONE] 10 mg PO QDAY #40 tab 07/16/16 Unknown Rx Venlafaxine HCl [Venlafaxine] 100 mg PO TIDWM #30 tablet 07/16/16 Unknown Rx Venlafaxine [Effexor] 75 mg PO TID #30 tablet 07/16/16 Unknown Rx predniSONE [Deltasone] 50 mg PO QDAY #8 tab 07/16/16 Unknown Rx Active Meds: Active Medications Acetaminophen (Tylenol) 650 mg PO Q4H PRN PRN Reason: Non Cardiac Pain or Temp>100.5 Last Admin: 08/05/16 12:20 Dose: 650 mg Hydrophilic Ointment (Vaseline Lip Therapy) 1 applic TP Q2HR PRN PRN Reason: Dry Lips Fentanyl Citrate (Fentanyl Drip Premix) 2,000 mcg in 100 mls @ 3.969 mls/hr IV TITR DOMINICK; 1 MCG/KG/HR PRN Reason: Protocol Last Titration: 08/05/16 11:55 Dose: 4 mcg/kg/hr, 15.876 mls/hr Pantoprazole Sodium 80 mg/ (Sodium Chloride) 100 mls @ 10 mls/hr IV DIRECT DOMINICK PRN Reason: 8 MG/HR Last Admin: 08/05/16 07:59 Dose: 8 mg/hr, 10 mls/hr Norepinephrine 8 mg/ Sodium (Chloride) 250 mls @ 3.75 mls/hr IV TITR DOMINICK; 2 MCG /MIN PRN Reason: Protocol Last Admin: 08/05/16 10:44 Dose: 27 mcg/min, 50.62 mls/hr Piperacillin Sod/Tazobactam Sod (Zosyn/Ns 4.5gm/100ml) 4.5 gm in 100 mls @ 200 mls/hr IV Q8HR DOMINICK PRN Reason: Protocol Last Admin: 08/05/16 07:59 Dose: 200 mls/hr Vancomycin HCl 1,250 mg/ (Sodium Chloride) 275 mls @ 166.667 mls/hr IV Q12H DOMINICK Norepinephrine (Levophed Drip 4 Mg/Ns 250 Ml) 4 mg in 250 mls @ 7.5 mls/hr IV TITR DOMINICK; 2 MCG/MIN PRN Reason: Protocol Stop: 08/06/16 03:39 Lactated Ringer's (Lactated Ringers) 1,000 mls @ 125 mls/hr IV DIRECT DOMINICK Vasopressin 20 unit/ Sodium (Chloride) 101 mls @ 9.09 mls/hr IV TITR DOMINICK; 0.03 UNITS/MIN PRN Reason: Protocol Methylprednisolone Sodium Succinate (Solu-Medrol) 60 mg IV Q8HR DOMINICK Last Admin: 08/05/16 12:20 Dose: 60 mg Multi-Ingred Cream/Lotion/Oil/Oint (Artificial Tears Ophth Oint) 1 applic OU Q4HR PRN PRN Reason: Dry Eye(s) Nicotine (Habitrol) 21 mg TD QDAY DOMINICK Last Admin: 08/05/16 12:20 Dose: 21 mg Ondansetron HCl (Zofran) 4 mg IV Q8H PRN PRN Reason: N/V unrelieved by Reglan Review of Systems ROS unobtainable: due to endotracheal tube, due to mental status Physical Examination Vital Signs Pulse Resp Pulse Ox 125 H 25 H 77 L 08/04/16 23:08 08/04/16 23:08 08/04/16 23:08 General appearance: other (patient is unresponsive on the vent) HEENT: Positive: PERRL Neck: Positive: neck supple Cardiac: Positive: Reg Rate and Rhythm Lungs: Positive: Decreased Breath Sounds Neuro: Positive: Other (unresponsive on the vent) Abdomen: Positive: Soft Female genitourinary: deferred Skin: Positive: Clear Extremities: Absent: edema Results 08/05/16 10:16 08/05/16 00:06 Cardiac Enzymes 08/05/16 08/05/16 Range/Units 03:49 07:15 CK-MB (CK-2) 2.1 2.0 (0.0-4.0) ng/mL CBC 08/05/16 08/05/16 08/05/16 Range/Units 03:49 07:15 10:16 Hgb 8.8 L 9.0 L 9.1 L (10.1-14.3) gm/dl Hct 31.2 31.4 32.7 (30.3-42.9) % EKG interpretations - Telemetry EKG Rhythm: Sinus Rhythm Assessment and Plan - Patient Problems (1) Abnormal ECG Current Visit: Yes Status: Acute Plan to address problem: Patient's ECG shows Q waves and inferior ST elevation which likely represents the inferior STEMI of 3 months ago, with persistence of ECG abnormalities. (2) Coronary artery disease Current Visit: Yes Status: Acute Qualifiers: Coronary Disease-Associated Artery/Lesion type: C [place] vs. transplanted heart: N Associated angina: A Plan to address problem: Patient has 2 vessel coronary artery disease. There is chronic occlusion of the distal right coronary artery, with unsuccessful angioplasty 3 months ago. In addition, there is mid LAD stenosis which was treated successfully last month with a bare metal stent. We'll continue medical therapy with aspirin and Plavix, beta blockers. Left ventricular systolic ejection fraction was 45-50%. (3) Acute respiratory failure Current Visit: Yes Status: Acute Qualifiers: Respiratory failure complication: R Plan to address problem: Continue supportive management of respiratory failure.
[2016-08-05] MEDS ORDERED: PLAVIX PO ONE ×2 (13:14→14:00)
--- NOTE | 2016-08-05 13:31 | Event Note ---
Date: 08/05/16 Patient was seen and evaluated this morning, patient is intubated and mechanically ventilated, she is on IV antibiotics, patient is on levophed, and was admitted this morning in the H&P was done today.
[2016-08-05 14:50] LABS: Hematocrit 33.6 % (30.3-42.9); Hemoglobin 9.5 gm/dl (10.1-14.3)
[2016-08-05] MEDS: ASPIRIN PR SCH (15:13)
[2016-08-05] MEDS: VANCOMYCIN 1,250 MG in NACL 0.9% 250ML 250 ML IV SCH (16:08)
[2016-08-05] MEDS: LACTATED RINGERS 1,000 ML IV SCH ×2 (16:08→23:53)
[2016-08-05 16:43] LABS: Bilirubin,Urine NEG (Negative); Blood,Urine MOD (Negative); Ketones,Urine TR mg/dL (Negative); Leukocyte Esterase,Urine TR (Negative); Nitrite,Urine NEG (Negative); Urobilinogen,Urine < 2.0 mg/dL (<2.0)
[2016-08-05] MEDS: DIPRIVAN 10 MG/ML 1,000 MG/100 ML BOTTLE IV SCH (21:02)
[2016-08-05] MEDS ORDERED: ZEMURON IV ONE (23:15)
[2016-08-05] MEDS ORDERED: AMIDATE IV ONE (23:15)
[2016-08-05] MEDS ORDERED: KETALAR ONE (23:15)
[2016-08-06] MEDS: LEVOPHED 8 MG in NACL 0.9% 250ML 242 ML IV SCH (04:22)
[2016-08-06] MEDS: VANCOMYCIN 1,250 MG in NACL 0.9% 250ML 250 ML IV SCH ×2 (04:22→17:17)
[2016-08-06] MEDS: fentaNYL DRIP Premix 2,000 MCG/100 ML BAG IV SCH ×3 (04:23→18:07)
[2016-08-06] MEDS: PROTONIX 80 MG in NACL 0.9% 100 ML IV SCH (04:23)
[2016-08-06 04:54] LABS: ISTAT Base Excess -6; ISTAT HCO3 19.7; ISTAT PCO2 35.2 (35-45); ISTAT PH 7.355 (7.35-7.45); ISTAT PO2 69 (80-105); ISTAT SO2 93; ISTAT TCO2 21
[2016-08-06 06:22] LABS: Alanine Aminotransferase 8 units/L (7-56); Albumin 2.5 g/dL (3.9-5); Alkaline Phosphatase 63 units/L (35-129); Anion Gap 16 mmol/L; Blood Urea Nitrogen 15 mg/dL (7-17); Calcium 7.9 mg/dL (8.4-10.2); Carbon Dioxide 21 mmol/L (22-30); Chloride 116.6 mmol/L (98-107); Glucose 107 mg/dL (65-100); Potassium 3.2 mmol/L (3.6-5.0); Sodium 150 mmol/L (137-145); Total Protein 5.1 g/dL (6.3-8.2)
[2016-08-06] MEDS: LACTATED RINGERS 1,000 ML IV SCH ×2 (07:59→15:43)
[2016-08-06] MEDS: ZOSYN/NS 4.5GM/100ML 4.5 GM/100 ML VIAL IV SCH ×3 (09:00→21:46)
--- NOTE | 2016-08-06 09:29 | Progress Note ---
Assessment and Plan - Patient Problems (1) Acute respiratory failure Current Visit: Yes Status: Acute Qualifiers: Respiratory failure complication: hypoxia Qualified Code(s): J96.01 - Acute respiratory failure with hypoxia Plan to address problem: Continue on mechanical ventilatory support VAP and critical care bundles addressed bundle Extremely agitated- start propofol infusion for RAAS -1. Harley catheter Increased FIO2 and PEEP for hypoxia PRVC-AC 25/475/8/60% 7.4/36/55/22 (2) COPD exacerbation Current Visit: No Status: Acute Plan to address problem: Continue with mechanical ventilatory support Bronchodilators (3) Aspiration pneumonia Current Visit: Yes Status: Acute Qualifiers: Aspiration pneumonia type: A Laterality: L Lung location: L Plan to address problem: Antibiotics Aspiration precautions (4) Tobacco abuse Current Visit: No Status: Chronic Plan to address problem: Nicotine withdrawal precautions Nicotine patch (5) Overdose Current Visit: Yes Status: Acute Qualifiers: Encounter type: E Injury intent: I Plan to address problem: Monitor for arrthymias and side effects of narcotic overdose Monitor for urinary retention and constipation Subjective Date of service: 08/06/16 Principal diagnosis: Acute hypoxemic resopiratory faillure on MVS Interval history: Remains sedated and intubated. Very agitated trying to sit up in bed, pulling at lines. No acute overnight events otherwise. Sister and brother in law at the bedside Acute respiratory failure on MVS Drug overdose SIRS with hypotension COPD CHF CAD Cardiomyopathy - Patient is sedated and on mechanical ventilation - On IV antibiotics and IV fluids - GI was consulted for coffee ground emesis at the time of intubation in the ED , currently patient has bilious fluid drainage, so patient doesn't have any active bleeding. Prophylaxis - Mechanical because of coffee-ground emesis Prognosis - guarded Disposition - Continue ICU care. The high probability of a clinically significant, sudden or life threatening deterioration of the [neurologic, CV] system(s) required my full and direct attention, intervention and personal management. The aggregate critical care time was [31] minutes. This time is in addition to time spent performing reported procedures but includes the following: [x] Data Review and interpretation [x] Patient assessment and monitoring of vital signs [x] Documentation [x] Medication orders and management Objective - Exam Narrative Exam: Patient is sedated and mechanically ventilated The patient appeared well nourished and normally developed. Vital signs as documented. Head exam is unremarkable. No scleral icterus . Neck is without jugular venous distension, thyromegaly, or carotid bruits. Lungs are clear to auscultation. Cardiac exam reveals regular rate and Rhythm. First and second heart sounds normal. No murmurs, rubs or gallops. Abdominal exam reveals normal bowel sounds, no masses, no organomegaly and no aortic enlargement. Extremities are non edematous and both femoral and pedal pulses are normal. 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 Vital Signs - 12hr 08/05/16 08/05/16 08/05/16 21:30 21:45 22:00 Temperature Pulse Rate 125 H 120 H 120 H Respiratory 25 H 25 H 25 H Rate Blood Pressure 127/67 140/66 O2 Sat by Pulse 99 98 96 Oximetry 08/05/16 08/05/16 08/05/16 22:01 22:15 22:30 Temperature Pulse Rate 135 H 110 H 103 H Respiratory 22 25 H 25 H Rate Blood Pressure 106/57 114/67 118/61 O2 Sat by Pulse 96 97 Oximetry 08/05/16 08/05/16 08/05/16 22:45 23:00 23:15 Temperature Pulse Rate 108 H 102 H 102 H Respiratory 25 H 25 H 25 H Rate Blood Pressure 118/64 123/67 123/64 O2 Sat by Pulse 97 Oximetry 08/05/16 08/05/16 08/05/16 23:30 23:45 23:52 Temperature Pulse Rate 99 H 99 H 102 H Respiratory 25 H 25 H Rate Blood Pressure 119/59 120/63 123/67 O2 Sat by Pulse 97 98 98 Oximetry 08/05/16 08/06/16 08/06/16 23:59 00:01 00:15 Temperature 100.3 F H Pulse Rate 140 H 119 H Respiratory 23 26 H Rate Blood Pressure 128/82 118/60 O2 Sat by Pulse 97 97 Oximetry 08/06/16 08/06/16 08/06/16 00:31 00:45 01:00 Temperature Pulse Rate 150 H 119 H Respiratory 22 25 H Rate Blood Pressure 118/60 148/74 115/59 O2 Sat by Pulse 97 94 Oximetry 08/06/16 08/06/16 08/06/16 01:15 01:30 01:45 Temperature Pulse Rate 115 H 113 H 109 H Respiratory 25 H 25 H 25 H Rate Blood Pressure 124/64 126/66 131/65 O2 Sat by Pulse 97 99 90 Oximetry 08/06/16 08/06/16 08/06/16 02:00 02:15 02:30 Temperature Pulse Rate 101 H 99 H 97 H Respiratory 25 H 25 H 25 H Rate Blood Pressure 122/61 127/58 126/58 O2 Sat by Pulse 95 92 92 Oximetry 08/06/16 08/06/16 08/06/16 02:45 03:01 03:15 Temperature Pulse Rate 96 H 102 H 96 H Respiratory 25 H 25 H 25 H Rate Blood Pressure 122/51 129/61 124/66 O2 Sat by Pulse 94 94 Oximetry 08/06/16 08/06/16 08/06/16 03:30 03:45 04:00 Temperature 99.5 F Pulse Rate 99 H 104 H 126 H Respiratory 25 H 25 H 25 H Rate Blood Pressure 119/54 122/57 140/64 O2 Sat by Pulse 95 95 99 Oximetry 08/06/16 08/06/16 08/06/16 04:15 04:30 04:45 Temperature Pulse Rate 118 H 105 H 106 H Respiratory 24 25 H 25 H Rate Blood Pressure 133/64 113/58 121/58 O2 Sat by Pulse 93 96 Oximetry 08/06/16 08/06/16 08/06/16 04:50 05:01 05:15 Temperature Pulse Rate 107 H 139 H 106 H Respiratory 24 25 H Rate Blood Pressure 113/58 138/74 130/65 O2 Sat by Pulse 96 95 100 Oximetry 08/06/16 08/06/16 08/06/16 05:30 05:45 06:00 Temperature Pulse Rate 104 H 104 H 97 H Respiratory 25 H 25 H 25 H Rate Blood Pressure 136/64 142/67 138/63 O2 Sat by Pulse 97 97 96 Oximetry 08/06/16 08/06/16 08/06/16 06:15 06:30 06:45 Temperature Pulse Rate 101 H 105 H 104 H Respiratory 26 H 25 H 25 H Rate Blood Pressure 142/63 132/40 143/58 O2 Sat by Pulse 95 95 94 Oximetry 08/06/16 08/06/16 08/06/16 07:00 07:15 07:30 Temperature Pulse Rate 107 H 110 H 104 H Respiratory 24 25 H 25 H Rate Blood Pressure 148/70 143/65 142/61 O2 Sat by Pulse 95 Oximetry 08/06/16 08/06/1608/06/17 07:45 08:00 08:01 Temperature 99.7 F H Pulse Rate 141 H 146 H Respiratory 14 25 H Rate Blood Pressure 147/81 150/76 O2 Sat by Pulse 94 89 Oximetry 08/06/16 08/06/16 08/06/16 08:15 08:30 08:45 Temperature Pulse Rate 124 H 116 H 108 H Respiratory 25 H 25 H 25 H Rate Blood Pressure 142/69 120/59 117/65 O2 Sat by Pulse 91 93 98 Oximetry 08/06/16 09:00 Temperature Pulse Rate 99 H Respiratory 25 H Rate Blood Pressure 116/63 O2 Sat by Pulse 97 Oximetry CBC and BMP: 08/08/16 06:00 08/08/16 06:00 ABG, PT/INR, D-dimer: ABG POC ABG pH 7.355 (7.35-7.45) 08/06/16 04:45 POC ABG pCO2 35.2 (35-45) 08/06/16 04:45 POC ABG pO2 69 (80-105) L 08/06/16 04:45 POC ABG HCO3 19.7 08/06/16 04:45 POC ABG Total CO2 21 08/06/16 04:45 POC ABG O2 Sat 93 08/06/16 04:45 PT/INR, D-dimer PT 15.7 Sec. (12.2-14.9) H 08/05/16 00:06 INR 1.26 (0.87-1.13) H 08/05/16 00:06 Abnormal lab findings: Abnormal Labs 08/05/16 08/05/16 08/05/16 03:41 03:49 03:50 Hgb 8.8 L POC ABG pH 7.269 L 7.269 L POC ABG pO2 32 L Sodium Potassium Chloride Carbon Dioxide Creatinine Glucose Calcium Total Protein Albumin Urine WBC (Auto) 08/05/16 08/05/16 08/05/16 07:15 10:16 14:35 Hgb 9.0 L 9.1 L 9.5 L POC ABG pH POC ABG pO2 Sodium Potassium Chloride Carbon Dioxide Creatinine Glucose Calcium Total Protein Albumin Urine WBC (Auto) 08/05/16 08/06/16 08/06/16 15:30 04:00 04:45 Hgb POC ABG pH POC ABG pO2 69 L Sodium 150 H Potassium 3.2 L Chloride 116.6 H Carbon Dioxide 21 L Creatinine 0.4 L D Glucose 107 H Calcium 7.9 L Total Protein 5.1 L D Albumin 2.5 L Urine WBC (Auto) 9.0 H Allied health notes reviewed: RT Critical care time in (mins) excluding proc time.: 35 Critical care attestation.: If time is entered above; I have spent that time in minutes in the direct care of this critically ill patient, excluding procedure time.
--- NOTE | 2016-08-06 09:33 | XRay Report ---
Chest: Compared to 08/05/16. History: Followup of respiratory failure. Findings: Cardiomegaly. Stable support system. Pulmonary venous congestion. No consolidation or pleural effusion. No significant interval change. Impression: No significant interval change.
--- NOTE | 2016-08-06 09:41 | Gastroenterology Progress Note ---
<FELICITAS JOEL - Last Filed: 08/06/16 09:43> Assessment and Plan 1. coffee-ground emesis 2. acute respiratory failure 3. possibe overdose 4. SIRS -HGB stable- continue to trend -no signs of active bleeding overnight or this morning -no output from NG tube -BM x 1 yesterday with no melena or bright red blood per nursing -will d/c protonix drip and place on IV push daily -no plans for imminent EGD at this time -GI will sign off, please re-consult if active bleeding occurs Subjective Date of service: 08/06/16 Principal diagnosis: coffee-ground emesis Interval history: Patient sedated on vent. No output from NG tube overnight or this am. BM x 1 yesterday with no melena or bright red blood. Objective - Constitutional Vitals: Temp Pulse Resp BP Pulse Ox 99.7 F H 99 H 25 H 116/63 97 08/06/16 08:00 08/06/16 09:00 08/06/16 09:00 08/06/16 09:00 08/06/16 09:00 General appearance: other (sedated on vent) - Respiratory Respiratory: bilateral: CTA (anterior) - Cardiovascular Rhythm: regular Heart Sounds: Present: S1 & S2 - Extremities Extremities: No edema - Gastrointestinal General gastrointestinal: Present: soft, non-distended, normal bowel sounds - Neurologic Neurological: other (sedated) - Labs CBC & Chem 7: 08/05/16 14:35 08/06/16 04:00 Labs: Laboratory Results - last 24 hr 08/05/16 08/05/16 08/05/16 10:16 14:35 15:30 Hgb 9.1 L 9.5 L Hct 32.7 33.6 POC ABG pH POC ABG pCO2 POC ABG pO2 POC ABG HCO3 POC ABG Total CO2 POC ABG O2 Sat POC ABG Base Excess FiO2 Sodium Potassium Chloride Carbon Dioxide Anion Gap BUN Creatinine Estimated GFR BUN/Creatinine Ratio Glucose Calcium Total Bilirubin AST ALT Alkaline Phosphatase Total Protein Albumin Albumin/Globulin Ratio Urine Color Yellow Urine Turbidity Clear Urine pH 5.0 Ur Specific [place] 1.020 Urine Protein 30 mg/dl Urine Glucose (UA) Neg Urine Ketones Tr Urine Blood Mod Urine Nitrite Neg Urine Bilirubin Neg Urine Urobilinogen < 2.0 Ur Leukocyte Esterase Tr Urine WBC (Auto) 9.0 H Urine RBC (Auto) 1.0 U Epithel Cells (Auto) < 1.0 Urine Yeast (Budding) 1+ 08/06/16 08/06/16 04:00 04:45 Hgb Hct POC ABG pH 7.355 POC ABG pCO2 35.2 POC ABG pO2 69 L POC ABG HCO3 19.7 POC ABG Total CO2 21 POC ABG O2 Sat 93 POC ABG Base Excess -6 FiO2 50 Sodium 150 H Potassium 3.2 L Chloride 116.6 H Carbon Dioxide 21 L Anion Gap 16 BUN 15 Creatinine 0.4 L D Estimated GFR > 60 BUN/Creatinine Ratio 37.50 Glucose 107 H Calcium 7.9 L Total Bilirubin 0.30 AST 17 ALT 8 Alkaline Phosphatase 63 Total Protein 5.1 L D Albumin 2.5 L Albumin/Globulin Ratio 1.0 Urine Color Urine Turbidity Urine pH Ur Specific [place] Urine Protein Urine Glucose (UA) Urine Ketones Urine Blood Urine Nitrite Urine Bilirubin Urine Urobilinogen Ur Leukocyte Esterase Urine WBC (Auto) Urine RBC (Auto) U Epithel Cells (Auto) Urine Yeast (Budding) <DENISE GODINEZ R - Last Filed: 08/06/16 15:28> Assessment and Plan Green bile in NGT. No evidence of GI bleed at present. Signing off. Objective - Constitutional Vitals: Temp Pulse Resp BP Pulse Ox 99.7 F H 98 H 25 H 104/54 98 08/06/16 12:00 08/06/16 14:55 08/06/16 12:15 08/06/16 14:55 08/06/16 14:55 - Labs CBC & Chem 7: 08/05/16 14:35 08/06/16 04:00 Labs: Laboratory Results - last 24 hr 08/05/16 08/06/16 08/06/16 15:30 04:00 04:45 POC ABG pH 7.355 POC ABG pCO2 35.2 POC ABG pO2 69 L POC ABG HCO3 19.7 POC ABG Total CO2 21 POC ABG O2 Sat 93 POC ABG Base Excess -6 FiO2 50 Sodium 150 H Potassium 3.2 L Chloride 116.6 H Carbon Dioxide 21 L Anion Gap 16 BUN 15 Creatinine 0.4 L D Estimated GFR > 60 BUN/Creatinine Ratio 37.50 Glucose 107 H Calcium 7.9 L Total Bilirubin 0.30 AST 17 ALT 8 Alkaline Phosphatase 63 Total Protein 5.1 L D Albumin 2.5 L Albumin/Globulin Ratio 1.0 Urine Color Yellow Urine Turbidity Clear Urine pH 5.0 Ur Specific [place] 1.020 Urine Protein 30 mg/dl Urine Glucose (UA) Neg Urine Ketones Tr Urine Blood Mod Urine Nitrite Neg Urine Bilirubin Neg Urine Urobilinogen < 2.0 Ur Leukocyte Esterase Tr Urine WBC (Auto) 9.0 H Urine RBC (Auto) 1.0 U Epithel Cells (Auto) < 1.0 Urine Yeast (Budding) 1+
[2016-08-06] MEDS ORDERED: PROTONIX PO SCH (10:00)
[2016-08-06] MEDS ORDERED: SIMPLE SYRUP FEEDTUBE PRN ×2 (10:16→12:00)
[2016-08-06] MEDS ORDERED: PANCREAZE DR 10,500 UNIT FEEDTUBE PRN (10:16)
[2016-08-06] MEDS: HABITROL TD SCH (11:00)
[2016-08-06] MEDS: PLAVIX PO SCH (11:00)
[2016-08-06] MEDS: ASPIRIN PR SCH (11:00)
[2016-08-06] MEDS: PROTONIX IV SCH (11:27)
[2016-08-06] MEDS: DIPRIVAN 10 MG/ML 1,000 MG/100 ML BOTTLE IV SCH ×2 (11:55→19:45)
[2016-08-06] MEDS ORDERED: SODIUM BICARBONATE FEEDTUBE PRN (12:00)
--- NOTE | 2016-08-06 13:15 | Progress Note ---
Assessment and Plan Acute respiratory failure intubated on the vent Possibe overdose SIRS Abnormal ECG ECG shows Q waves and inferior ST elevation which likely represents the inferior STEMI of 3 months ago, with persistence of ECG abnormalities. Coronary artery disease There is chronic occlusion of the distal right coronary artery, with unsuccessful angioplasty 3 months ago at [facility]. In addition, there is mid LAD stenosis which was treated successfully last month with a bare metal stent at [facility]. Mild Cardiomyopathy EF 40-45% on echo 06/2016 Hx of COPD Recommendations: Continue medical therapy for coronary disease with aspirin and Plavix. Beta marika and nitrates held due to hypotension requiring pressor support. Subjective Date of service: 08/06/16 Principal diagnosis: coffee-ground emesis Interval history: Remains intubated on the vent. Remains on pressor support. Objective Vital Signs Temp Pulse Resp Resp BP Pulse Ox 08/06/16 12:15 103 H 25 H 104/58 08/06/16 12:00 105 H 22 103/57 96 08/06/16 11:45 101 H 25 H 94/49 08/06/16 11:30 109 H 25 H 92/46 99 08/06/16 11:15 109 H 25 H 98/49 08/06/16 11:00 100 H 25 H 120/66 97 08/06/16 10:45 96 H 25 H 116/63 97 08/06/16 10:30 97 H 25 H 116/64 98 08/06/16 10:15 101 H 26 H 106/59 100 08/06/16 10:00 99 H 25 H 25 H 117/56 96 08/06/16 09:45 100 H 25 H 112/58 95 08/06/16 09:30 96 H 25 H 125/61 98 08/06/16 09:15 97 H 25 H 124/69 99 08/06/16 09:00 99 H 25 H 116/63 97 08/06/16 08:45 108 H 25 H 117/65 98 08/06/16 08:30 116 H 25 H 120/59 93 08/06/16 08:15 124 H 25 H 142/69 91 08/06/16 08:01 146 H 25 H 150/76 89 08/06/16 08:00 99.7 F H 25 H 99 08/06/16 07:45 141 H 14 147/81 94 08/06/16 07:30 104 H 25 H 142/61 08/06/16 07:15 110 H 25 H 143/65 08/06/16 07:00 107 H 24 148/70 95 08/06/16 06:45 104 H 25 H 143/58 94 08/06/16 06:30 105 H 25 H 132/40 95 08/06/16 06:15 101 H 26 H 142/63 95 08/06/16 06:00 97 H 25 H 138/63 96 08/06/16 05:45 104 H 25 H 142/67 97 08/06/16 05:30 104 H 25 H 136/64 97 08/06/16 05:15 106 H 25 H 130/65 100 08/06/16 05:01 139 H 24 138/74 95 08/06/16 04:50 107 H 113/58 96 08/06/16 04:45 106 H 25 H 121/58 08/06/16 04:30 105 H 25 H 113/58 96 08/06/16 04:15 118 H 24 133/64 93 08/06/16 04:00 99.5 F 126 H 25 H 140/64 99 08/06/16 03:45 104 H 25 H 122/57 95 08/06/16 03:30 99 H 25 H 119/54 95 08/06/16 03:15 96 H 25 H 124/66 08/06/16 03:01 102 H 25 H 129/61 94 08/06/16 02:45 96 H 25 H 122/51 94 08/06/16 02:30 97 H 25 H 126/58 92 08/06/16 02:15 99 H 25 H 127/58 92 08/06/16 02:00 101 H 25 H 122/61 95 08/06/16 01:45 109 H 25 H 131/65 90 08/06/16 01:30 113 H 25 H 126/66 99 08/06/16 01:15 115 H 25 H 124/64 97 08/06/16 01:00 119 H 25 H 115/59 94 08/06/16 00:45 150 H 22 148/74 08/06/16 00:31 118/60 97 08/06/16 00:15 119 H 26 H 118/60 97 08/06/16 00:01 140 H 23 128/82 97 08/05/16 23:59 100.3 F H 08/05/16 23:52 102 H 123/67 98 08/05/16 23:45 99 H 25 H 120/63 98 08/05/16 23:30 99 H 25 H 119/59 97 08/05/16 23:15 102 H 25 H 123/64 97 08/05/16 23:00 102 H 25 H 123/67 08/05/16 22:45 108 H 25 H 118/64 08/05/16 22:30 103 H 25 H 118/61 08/05/16 22:15 110 H 25 H 114/67 97 08/05/16 22:01 135 H 22 106/57 96 08/05/16 22:00 120 H 25 H 96 08/05/16 21:45 120 H 25 H 140/66 98 08/05/16 21:30 125 H 25 H 127/67 99 08/05/16 21:15 124 H 25 H 128/69 97 08/05/16 21:00 120 H 25 H 120/67 08/05/16 20:45 123 H 24 122/64 96 08/05/16 20:30 133 H 25 H 136/67 94 08/05/16 20:15 138 H 25 H 129/65 96 08/05/16 20:00 100.2 F H 114 H 25 H 129/65 97 08/05/16 19:45 113 H 25 H 131/68 96 08/05/16 19:30 114 H 25 H 116/65 98 08/05/16 19:15 121 H 25 H 114/63 96 08/05/16 19:01 138 H 24 142/73 96 08/05/16 18:45 111 H 25 H 116/63 08/05/16 18:30 112 H 25 H 116/64 08/05/16 18:15 122 H 25 H 112/61 95 08/05/16 18:00 159 H 21 119/77 97 08/05/16 17:45 157 H 14 129/80 96 08/05/16 17:31 109 H 25 H 113/61 94 08/05/16 17:15 100 H 25 H 121/57 96 08/05/16 17:00 102 H 25 H 117/56 96 08/05/16 16:50 121 H 114/63 96 08/05/16 16:45 100 H 25 H 115/55 96 08/05/16 16:44 101.6 F H 08/05/16 16:30 106 H 25 H 119/60 96 08/05/16 16:15 116 H 25 H 120/66 100 08/05/16 16:00 115 H 25 H 127/67 98 08/05/16 15:45 103 H 25 H 110/58 95 08/05/16 15:30 100 H 25 H 108/56 95 08/05/16 15:15 128 H 25 H 111/57 94 08/05/16 15:00 95 H 25 H 111/57 94 08/05/16 14:45 101 H 25 H 97/45 94 08/05/16 14:30 101 H 25 H 120/61 94 08/05/16 14:15 109 H 25 H 126/69 08/05/16 14:00 100 H 25 H 118/58 94 08/05/16 13:45 100 H 25 H 114/57 94 08/05/16 13:30 109 H 25 H 95/53 94 08/05/16 13:20 25 H 08/05/16 13:15 99 H 25 H 111/52 94 - Physical Examination General: Other (intubated on the vent) Cardiac: Positive: Reg Rate and Rhythm Neuro: Positive: Other (unresponsive on the vent) Abdomen: Positive: Soft Skin: Positive: Clear Extremities: Absent: edema - Labs and Meds Cardiac Enzymes 08/06/16 Range/Units 04:00 AST 17 (5-40) units/L CBC 08/05/16 Range/Units 14:35 Hgb 9.5 L (10.1-14.3) gm/dl Hct 33.6 (30.3-42.9) % Comprehensive Metabolic Panel 08/06/16 Range/Units 04:00 Sodium 150 H (137-145) mmol/L Potassium 3.2 L (3.6-5.0) mmol/L Chloride 116.6 H (98-107) mmol/L Carbon Dioxide 21 L (22-30) mmol/L BUN 15 (7-17) mg/dL Creatinine 0.4 L D (0.7-1.2) mg/dL Glucose 107 H (65-100) mg/dL Calcium 7.9 L (8.4-10.2) mg/dL AST 17 (5-40) units/L ALT 8 (7-56) units/L Alkaline Phosphatase 63 (35-129) units/L Total Protein 5.1 L D (6.3-8.2) g/dL Albumin 2.5 L (3.9-5) g/dL - Imaging and Cardiology EKG: image reviewed
--- NOTE | 2016-08-06 16:48 | Progress Note ---
Assessment and Plan Assessment and plan: Acute respiratory failure Drug overdose SIRS with hypotension COPD CHF CAD Cardiomyopathy - Patient is sedated and on mechanical ventilation - On IV antibiotics and IV fluids - Cardiology is on board - GI was consulted for coffee ground emesis at the time of intubation in the ED , currently patient has biliousfluid drainage, so patient doesn't have any active bleeding. Patient is mildly anemic with evaluate her once she is extubated - Patient is still on pressors Prophylaxis - Mechanical because of coffee-ground emesis - If no further bleeding will start her on Lovenox Prognosis - guarded Disposition - Continue ICU care. The high probability of a clinically significant, sudden or life threatening deterioration of the [neurologic, CV] system(s) required my full and direct attention, intervention and personal management. The aggregate critical care time was [31] minutes. This time is in addition to time spent performing reported procedures but includes the following: [x] Data Review and interpretation [x] Patient assessment and monitoring of vital signs [x] Documentation [x] Medication orders and management History Interval history: Patient was seen and evaluated this morning, patient is sedated on mechanical ventilation. Hospitalist Physical - Physical exam Narrative exam: Patient is sedated and mechanically ventilated The patient appeared well nourished and normally developed. Vital signs as documented. Head exam is unremarkable. No scleral icterus . Neck is without jugular venous distension, thyromegaly, or carotid bruits. Lungs are clear to auscultation. Cardiac exam reveals regular rate and Rhythm. First and second heart sounds normal. No murmurs, rubs or gallops. Abdominal exam reveals normal bowel sounds, no masses, no organomegaly and no aortic enlargement. Extremities are nonedematous and both femoral and pedal pulses are normal. 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 - Constitutional Vitals: Temp Pulse Resp BP Pulse Ox 99.7 F H 92 H 25 H 108/56 100 08/06/16 12:00 08/06/16 16:17 08/06/16 12:15 08/06/16 16:17 08/06/16 16:17 General appearance: Present: other (patient is unresponsive on the vent) Results - Labs CBC & Chem 7: 08/05/16 14:35 08/06/16 04:00 Labs: Laboratory Last Values WBC 18.3 K/mm3 (4.5-11.0) H 08/05/16 00:06 RBC 5.10 M/mm3 (3.65-5.03) H 08/05/16 00:06 Hgb 9.5 gm/dl (10.1-14.3) L 08/05/16 14:35 Hct 33.6 % (30.3-42.9) 08/05/16 14:35 MCV 73 fl (79-97) L 08/05/16 00:06 MCH 21 pg (28-32) L 08/05/16 00:06 MCHC 28 % (30-34) L 08/05/16 00:06 RDW 20.7 % (13.2-15.2) H 08/05/16 00:06 Plt Count 189 K/mm3 (140-440) 08/05/16 00:06 Add Manual Diff Complete 08/05/16 00:06 Total Counted 100 08/05/16 00:06 Seg 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8-7.7) H 08/05/16 00:06 Band Neutrophils # 7.0 K/mm3 08/05/16 00:06 Lymphocytes # (Manual) 1.3 K/mm3 (1.2-5.4) 08/05/16 00:06 Abs React Lymphs (Man) 0.0 K/mm3 08/05/16 00:06 Monocytes # (Manual) 1.1 K/mm3 (0.0-0.8) H 08/05/16 00:06 Eosinophils # (Manual) 0.0 K/mm3 (0.0-0.4) 08/05/16 00:06 Basophils # (Manual) 0.0 K/mm3 (0.0-0.1) 08/05/16 00:06 Metamyelocytes # 0.0 K/mm3 08/05/16 00:06 Myelocytes # 0.0 K/mm3 08/05/16 00:06 Promyelocytes # 0.0 K/mm3 08/05/16 00:06 Blast Cells # 0.0 K/mm3 08/05/16 00:06 WBC Morphology Not Reportable 08/05/16 00:06 Hypersegmented Neuts Not Reportable 08/05/16 00:06 Hyposegmented Neuts Not Reportable 08/05/16 00:06 Hypogranular Neuts Not Reportable 08/05/16 00:06 Smudge Cells Not Reportable 08/05/16 00:06 Toxic Granulation Not Reportable 08/05/16 00:06 Toxic Vacuolation Not Reportable 08/05/16 00:06 Dohle Bodies Not Reportable 08/05/16 00:06 Pelger-Huet Anomaly Not Reportable 08/05/16 00:06 Neha Rods Not Reportable 08/05/16 00:06 Platelet Estimate Appears normal 08/05/16 00:06 Clumped Platelets Not Reportable 08/05/16 00:06 Plt Clumps, EDTA Not Reportable 08/05/16 00:06 Large Platelets Not Reportable 08/05/16 00:06 Giant Platelets Few 08/05/16 00:06 Platelet Satelliting Not Reportable 08/05/16 00:06 Plt Morphology Comment Not Reportable 08/05/16 00:06 RBC Morphology Not Reportable 08/05/16 00:06 Dimorphic RBCs Not Reportable 08/05/16 00:06 Polychromasia Few 08/05/16 00:06 Hypochromasia 2+ 08/05/16 00:06 Poikilocytosis Not Reportable 08/05/16 00:06 Anisocytosis 1+ 08/05/16 00:06 Microcytosis Not Reportable 08/05/16 00:06 Macrocytosis Not Reportable 08/05/16 00:06 Spherocytes Not Reportable 08/05/16 00:06 Pappenheimer Bodies Not Reportable 08/05/16 00:06 Sickle Cells Not Reportable 08/05/16 00:06 Target Cells Not Reportable 08/05/16 00:06 Tear Drop Cells Few 08/05/16 00:06 Ovalocytes Not Reportable 08/05/16 00:06 Helmet Cells Not Reportable 08/05/16 00:06 Benoit-Langeloth Bodies Not Reportable 08/05/16 00:06 [place] Rings Not Reportable 08/05/16 00:06 Damien Cells Not Reportable 08/05/16 00:06 Bite Cells Not Reportable 08/05/16 00:06 Crenated Cell Not Reportable 08/05/16 00:06 Elliptocytes Few 08/05/16 00:06 Acanthocytes (Spur) Not Reportable 08/05/16 00:06 Rouleaux Not Reportable 08/05/16 00:06 Hemoglobin C Crystals Not Reportable 08/05/16 00:06 Schistocytes Not Reportable 08/05/16 00:06 Malaria parasites Not Reportable 08/05/16 00:06 Hernan Bodies Not Reportable 08/05/16 00:06 Hem Pathologist Commnt No 08/05/16 00:06 PT 15.7 Sec. (12.2-14.9) H 08/05/16 00:06 INR 1.26 (0.87-1.13) H 08/05/16 00:06 APTT 40.4 Sec. (24.2-36.6) H 08/05/16 00:06 POC ABG pH 7.355 (7.35-7.45) 08/06/16 04:45 POC ABG pCO2 35.2 (35-45) 08/06/16 04:45 POC ABG pO2 69 (80-105) L 08/06/16 04:45 POC ABG HCO3 19.7 08/06/16 04:45 POC ABG Total CO2 21 08/06/16 04:45 POC ABG O2 Sat 93 08/06/16 04:45 POC ABG Base Excess -6 08/06/16 04:45 FiO2 50 % 08/06/16 04:45 Sodium 150 mmol/L (137-145) H 08/06/16 04:00 Potassium 3.2 mmol/L (3.6-5.0) L 08/06/16 04:00 Chloride 116.6 mmol/L (98-107) H 08/06/16 04:00 Carbon Dioxide 21 mmol/L (22-30) L 08/06/16 04:00 Anion Gap 16 mmol/L 08/06/16 04:00 BUN 15 mg/dL (7-17) 08/06/16 04:00 Creatinine 0.4 mg/dL (0.7-1.2) L D 08/06/16 04:00 Estimated GFR > 60 ml/min 08/06/16 04:00 BUN/Creatinine Ratio 37.50 % 08/06/16 04:00 Glucose 107 mg/dL (65-100) H 08/06/16 04:00 Lactic Acid 1.10 mmol/L (0.7-2.0) 08/05/16 03:49 Calcium 7.9 mg/dL (8.4-10.2) L 08/06/16 04:00 Total Bilirubin 0.30 mg/dL (0.1-1.2) 08/06/16 04:00 AST 17 units/L (5-40) 08/06/16 04:00 ALT 8 units/L (7-56) 08/06/16 04:00 Alkaline Phosphatase 63 units/L (35-129) 08/06/16 04:00 Total Creatine Kinase 76 units/L (30-135) 08/05/16 07:15 CK-MB (CK-2) 2.0 ng/mL (0.0-4.0) 08/05/16 07:15 CK-MB (CK-2) Rel Index 2.6 (0-4) 08/05/16 07:15 Troponin T < 0.010 ng/mL (0.00-0.029) 08/05/16 07:15 Total Protein 5.1 g/dL (6.3-8.2) L D 08/06/16 04:00 Albumin 2.5 g/dL (3.9-5) L 08/06/16 04:00 Albumin/Globulin Ratio 1.0 % 08/06/16 04:00 Urine Color Yellow (Yellow) 08/05/16 15:30 Urine Turbidity Clear (Clear) 08/05/16 15:30 Urine pH 5.0 (5.0-7.0) 08/05/16 15:30 Ur Specific [place] 1.020 (1.003-1.030) 08/05/16 15:30 Urine Protein 30 mg/dl mg/dL (Negative) 08/05/16 15:30 Urine Glucose (UA) Neg mg/dL (Negative) 08/05/16 15:30 Urine Ketones Tr mg/dL (Negative) 08/05/16 15:30 Urine Blood Mod (Negative) 08/05/16 15:30 Urine Nitrite Neg (Negative) 08/05/16 15:30 Urine Bilirubin Neg (Negative) 08/05/16 15:30 Urine Urobilinogen < 2.0 mg/dL (<2.0) 08/05/16 15:30 Ur Leukocyte Esterase Tr (Negative) 08/05/16 15:30 Urine WBC (Auto) 9.0 /HPF (0.0-6.0) H 08/05/16 15:30 Urine RBC (Auto) 1.0 /HPF (0.0-6.0) 08/05/16 15:30 U Epithel Cells (Auto) < 1.0 /HPF (0-13.0) 08/05/16 15:30 Urine Yeast (Budding) 1+ /HPF 08/05/16 15:30 Salicylates 3.5 mg/dL (2.8-20.0) 08/05/16 03:49 Urine Opiates Screen Presumptive positive 08/05/16 01:06 Urine Methadone Screen Presumptive negative 08/05/16 01:06 Acetaminophen < 15.0 ug/mL (10.0-30.0) 08/05/16 00:06 Ur Barbiturates Screen Presumptive negative 08/05/16 01:06 Ur Phencyclidine Scrn Presumptive negative 08/05/16 01:06 Ur Amphetamines Screen Presumptive negative 08/05/16 01:06 U Benzodiazepines Scrn Presumptive negative 08/05/16 01:06 Urine Cocaine Screen Presumptive negative 08/05/16 01:06 U Marijuana (THC) Screen Presumptive negative 08/05/16 01:06 Drugs of Abuse Note Disclamer 08/05/16 01:06 Plasma/Serum Alcohol < 0.01 gm% (0-0.07) 08/05/16 00:06 Blood Type O POSITIVE 08/05/16 00:06 JACOB Antibody Screen Negative 08/05/16 00:06 Hyponatremia
[2016-08-07] MEDS: LACTATED RINGERS 1,000 ML IV SCH ×4 (00:03→23:30)
[2016-08-07] MEDS: VANCOMYCIN 1,250 MG in NACL 0.9% 250ML 250 ML IV SCH ×2 (03:49→16:05)
[2016-08-07 05:15] LABS: ISTAT Base Excess -4; ISTAT HCO3 21.2; ISTAT PCO2 35.5 (35-45); ISTAT PH 7.384 (7.35-7.45); ISTAT PO2 58 (80-105); ISTAT SO2 89; ISTAT TCO2 22
[2016-08-07] MEDS: fentaNYL DRIP Premix 2,000 MCG/100 ML BAG IV SCH ×3 (06:43→18:15)
[2016-08-07] MEDS: ZOSYN/NS 4.5GM/100ML 4.5 GM/100 ML VIAL IV SCH ×3 (06:44→21:55)
[2016-08-07 06:48] LABS: Basophils % (Auto) 0.1 % (0.0-1.8); Mean Corpuscular HGB Conc 29 % (30-34); Mean Corpuscular Volume 71 fl (79-97); Platelet Count 144 K/mm3 (140-440); Red Blood Count 3.69 M/mm3 (3.65-5.03)
[2016-08-07 06:57] LABS: Hematocrit 26.3 % (30.3-42.9); Hemoglobin 7.6 gm/dl (10.1-14.3); Mean Corpuscular Hemoglobin 21 pg (28-32); Red Cell Distribution Width 21.1 % (13.2-15.2)
[2016-08-07 07:12] LABS: Anion Gap 14 mmol/L; Blood Urea Nitrogen 13 mg/dL (7-17); Calcium 8.3 mg/dL (8.4-10.2); Carbon Dioxide 23 mmol/L (22-30); Chloride 114.1 mmol/L (98-107); Glucose 112 mg/dL (65-100); Potassium 3.3 mmol/L (3.6-5.0); Sodium 148 mmol/L (137-145)
[2016-08-07] MEDS: DIPRIVAN 10 MG/ML 1,000 MG/100 ML BOTTLE IV SCH ×4 (07:22→17:52)
--- NOTE | 2016-08-07 08:19 | XRay Report ---
AP CHEST :08/05/16 02:53:00 CLINICAL: Intubated.Follow up respiratory failure. COMPARISON:Previous day. FINDINGS: The endotracheal tube is in satisfactory position. The feeding tube is satisfactory. Right IJ catheter tip is in the SVC. Stable cardiomegaly. Mild central pulmonary congestion. No airspace disease or pleural effusion. No pneumothorax. IMPRESSION: No change.No congestive heart failure or pneumonia.
[2016-08-07] MEDS ORDERED: POTASSIUM CHLORIDE FEEDTUBE NR (09:00)
--- NOTE | 2016-08-07 09:10 | Progress Note ---
Assessment and Plan - Patient Problems (1) Acute respiratory failure Current Visit: Yes Status: Acute Qualifiers: Respiratory failure complication: hypoxia Qualified Code(s): J96.01 - Acute respiratory failure with hypoxia Plan to address problem: Continue on mechanical ventilatory support VAP and critical care bundles addressed bundle Extremely agitated- started propofol infusion for RAAS -1. On fentanyl Seroquel added, as agitation is precluding SAT/SBT at this time Harley catheter Stress ulcer prophylaxis SCDs for VTE prophylaxis in viwe of anemia and reported coffee ground emesis- if she remains hemodynamically normal and hemoglobin is stable will initiate heparin Stress ulcer prophylaxis- Pantoprazole (2) COPD exacerbation Current Visit: No Status: Acute Plan to address problem: Continue with mechanical ventilatory support Bronchodilators Monitor airway pressures (3) Aspiration pneumonia Current Visit: Yes Status: Acute Qualifiers: Aspiration pneumonia type: A Laterality: L Lung location: L Plan to address problem: Antibiotics Aspiration precautions (4) Tobacco abuse Current Visit: No Status: Chronic Plan to address problem: Nicotine withdrawal precautions Nicotine patch Smoking cessation counselling closer to discharge (5) Overdose Current Visit: Yes Status: Acute Qualifiers: Encounter type: E Injury intent: I Plan to address problem: Monitor for arrthymias and side effects of narcotic overdose Monitor for urinary retention and constipation Subjective Date of service: 08/07/16 Principal diagnosis: Acute hypoxemic resopiratory faillure on MVS Interval history: Remains sedated and intubated. Very agitated trying to sit up in bed, pulling at lines. No acute overnight events otherwise. Seen and examined. vitals,labs, medications, chart reviewed. Discussed in interdisciplinary ICU rounds Acute respiratory failure on MVS Drug overdose COPD CHF CAD Cardiomyopathy - Patient is sedated and on mechanical ventilation - On IV antibiotics and IV fluids Prophylaxis - Mechanical because of coffee-ground emesis -Pantoprazole Prognosis - guarded Disposition - Continue ICU care. The high probability of a clinically significant, sudden or life threatening deterioration of the [neurologic, CV] system(s) required my full and direct attention, intervention and personal management. The aggregate critical care time was [31] minutes. This time is in addition to time spent performing reported procedures but includes the following: [x] Data Review and interpretation [x] Patient assessment and monitoring of vital signs [x] Documentation [x] Medication orders and management Objective - Exam Narrative Exam: Patient is sedated and mechanically ventilated The patient appeared well nourished and normally developed. Vital signs as documented. Head exam is unremarkable. No scleral icterus . Neck is without jugular venous distension, thyromegaly, or carotid bruits. Lungs are clear to auscultation. Cardiac exam reveals regular rate and Rhythm. First and second heart sounds normal. No murmurs, rubs or gallops. Abdominal exam reveals normal bowel sounds, no masses, no organomegaly and no aortic enlargement. Extremities are non edematous and both femoral and pedal pulses are normal. 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 Vital Signs - 12hr 08/06/16 08/06/16 08/06/16 21:15 21:30 21:45 Temperature Pulse Rate 97 H 96 H 89 Respiratory 25 H 25 H 25 H Rate Respiratory Rate [Medial Back] Blood Pressure 112/49 106/51 98/46 O2 Sat by Pulse 97 96 96 Oximetry 08/06/16 08/06/16 08/06/16 22:00 22:15 22:30 Temperature Pulse Rate 125 H 115 H 100 H Respiratory 14 25 H 25 H Rate Respiratory 25 H Rate [Medial Back] Blood Pressure 120/65 126/63 119/59 O2 Sat by Pulse 97 100 100 Oximetry 08/06/16 08/06/16 08/06/16 22:45 23:00 23:15 Temperature Pulse Rate 100 H 94 H 88 Respiratory 24 25 H 25 H Rate Respiratory Rate [Medial Back] Blood Pressure 137/67 116/59 120/68 O2 Sat by Pulse 100 99 100 Oximetry 08/06/16 08/06/16 08/07/16 23:30 23:45 00:00 Temperature 99.7 F H Pulse Rate 85 87 87 Respiratory 25 H 25 H 25 H Rate Respiratory Rate [Medial Back] Blood Pressure 119/64 128/68 120/64 O2 Sat by Pulse 100 100 Oximetry 08/07/16 08/07/16 08/07/16 00:09 00:13 00:15 Temperature Pulse Rate 91 H 89 89 Respiratory 25 H 25 H Rate Respiratory Rate [Medial Back] Blood Pressure 118/63 120/64 118/63 O2 Sat by Pulse 96 100 100 Oximetry 08/07/16 08/07/16 08/07/16 00:30 00:45 01:00 Temperature Pulse Rate 92 H 91 H 87 Respiratory 25 H 24 25 H Rate Respiratory Rate [Medial Back] Blood Pressure 112/56 114/60 119/61 O2 Sat by Pulse 99 100 99 Oximetry 08/07/16 08/07/16 08/07/16 01:15 01:30 01:45 Temperature Pulse Rate 87 89 87 Respiratory 24 25 H 25 H Rate Respiratory Rate [Medial Back] Blood Pressure 121/60 119/63 115/60 O2 Sat by Pulse 100 99 98 Oximetry 08/07/16 08/07/16 08/07/16 02:00 02:15 02:31 Temperature Pulse Rate 86 156 H 159 H Respiratory 25 H 15 26 H Rate Respiratory Rate [Medial Back] Blood Pressure 124/67 119/63 161/95 O2 Sat by Pulse 99 96 Oximetry 08/07/16 08/07/16 08/07/16 02:45 03:00 03:15 Temperature Pulse Rate 143 H 122 H Respiratory 25 H 25 H Rate Respiratory Rate [Medial Back] Blood Pressure 124/67 145/79 113/57 O2 Sat by Pulse 95 96 95 Oximetry 08/07/16 08/07/16 08/07/16 03:30 03:45 04:00 Temperature 99.9 F H Pulse Rate 134 H 142 H Respiratory 16 21 Rate Respiratory Rate [Medial Back] Blood Pressure 146/79 138/86 O2 Sat by Pulse 95 95 Oximetry 08/07/16 08/07/16 08/07/16 04:01 04:15 04:30 Temperature Pulse Rate 137 H 113 H 111 H Respiratory 25 H 25 H 25 H Rate Respiratory Rate [Medial Back] Blood Pressure 133/67 113/64 110/65 O2 Sat by Pulse 94 95 97 Oximetry 08/07/16 08/07/16 08/07/16 04:45 05:00 05:15 Temperature Pulse Rate 113 H 117 H 100 H Respiratory 22 24 25 H Rate Respiratory Rate [Medial Back] Blood Pressure 113/64 111/61 109/55 O2 Sat by Pulse 98 97 97 Oximetry 08/07/16 08/07/16 08/07/16 05:30 05:45 06:00 Temperature Pulse Rate 102 H 100 H 103 H Respiratory 25 H 25 H 25 H Rate Respiratory Rate [Medial Back] Blood Pressure 110/57 113/60 111/63 O2 Sat by Pulse 98 99 Oximetry 08/07/16 08/07/16 08/07/16 06:15 06:30 06:45 Temperature Pulse Rate 137 H 131 H 136 H Respiratory 26 H 24 26 H Rate Respiratory Rate [Medial Back] Blood Pressure 113/60 143/77 134/80 O2 Sat by Pulse 100 94 97 Oximetry 08/07/16 08/07/16 07:00 08:25 Temperature Pulse Rate 98 H 134 H Respiratory 25 H Rate Respiratory Rate [Medial Back] Blood Pressure 97/54 133/67 O2 Sat by Pulse 97 99 Oximetry CBC and BMP: 08/08/16 06:00 08/08/16 06:00 ABG, PT/INR, D-dimer: ABG POC ABG pH 7.384 (7.35-7.45) 08/07/16 04:45 POC ABG pCO2 35.5 (35-45) 08/07/16 04:45 POC ABG pO2 58 (80-105) L 08/07/16 04:45 POC ABG HCO3 21.2 08/07/16 04:45 POC ABG Total CO2 22 08/07/16 04:45 POC ABG O2 Sat 89 08/07/16 04:45 PT/INR, D-dimer PT 15.7 Sec. (12.2-14.9) H 08/05/16 00:06 INR 1.26 (0.87-1.13) H 08/05/16 00:06 Abnormal lab findings: Abnormal Labs 08/05/16 08/05/16 08/05/16 03:41 03:49 03:50 Hgb 8.8 L Hct MCV MCH MCHC RDW Lymph % (Auto) Lymph # Seg Neutrophils % POC ABG pH 7.269 L 7.269 L POC ABG pO2 32 L Sodium Potassium Chloride Carbon Dioxide Creatinine Glucose Calcium Total Protein Albumin Urine WBC (Auto) 08/05/16 08/05/16 08/05/16 07:15 10:16 14:35 Hgb 9.0 L 9.1 L 9.5 L Hct MCV MCH MCHC RDW Lymph % (Auto) Lymph # Seg Neutrophils % POC ABG pH POC ABG pO2 Sodium Potassium Chloride Carbon Dioxide Creatinine Glucose Calcium Total Protein Albumin Urine WBC (Auto) 08/05/16 08/06/16 08/06/16 15:30 04:00 04:45 Hgb Hct MCV MCH MCHC RDW Lymph % (Auto) Lymph # Seg Neutrophils % POC ABG pH POC ABG pO2 69 L Sodium 150 H Potassium 3.2 L Chloride 116.6 H Carbon Dioxide 21 L Creatinine 0.4 L D Glucose 107 H Calcium 7.9 L Total Protein 5.1 L D Albumin 2.5 L Urine WBC (Auto) 9.0 H 08/07/16 08/07/16 08/07/16 04:00 04:00 04:45 Hgb 7.6 L Hct 26.3 L D MCV 71 L MCH 21 L MCHC 29 L RDW 21.1 H Lymph % (Auto) 5.8 L Lymph # 0.5 L Seg Neutrophils % 87.7 H POC ABG pH POC ABG pO2 58 L Sodium 148 H Potassium 3.3 L Chloride 114.1 H Carbon Dioxide Creatinine 0.4 L Glucose 112 H Calcium 8.3 L Total Protein Albumin Urine WBC (Auto) Allied health notes reviewed: RT
[2016-08-07] MEDS: HABITROL TD SCH (09:23)
[2016-08-07] MEDS: PROTONIX IV SCH (09:23)
[2016-08-07] MEDS: PLAVIX PO SCH (09:23)
[2016-08-07] MEDS: ASPIRIN PR SCH ×2 (09:23→10:28)
[2016-08-07] MEDS ORDERED: COREG PO SCH (10:00)
--- NOTE | 2016-08-07 10:16 | Progress Note ---
Assessment and Plan Acute respiratory failure intubated on the vent Possible overdose SIRS Abnormal ECG ECG shows Q waves and inferior ST elevation which likely represents the inferior STEMI of 3 months ago, with persistence of ECG abnormalities. Coronary artery disease There is chronic occlusion of the distal right coronary artery, with unsuccessful angioplasty 3 months ago at [facility]. In addition, there is mid LAD stenosis which was treated successfully last month (06/26) with a bare metal stent at [facility]. Mild Cardiomyopathy EF 40-45% on echo 06/2016 Hx of COPD Coffee ground emesis with evidence of a drop in Hb Paroxysmal afib with RVR - new onset Recommendations: Change asa to 81 mg po daily Continue plavix if no evidence of active bleeding; otherwise you can stop plavix given that patient is > 1 month since her PCI (The new 2016 ACC guidelines give a class IIB recommendation to continue DAPT in patient with ACS s/p BMS for 1 year and without bleeding risk) Change coreg to metoprolol for better rate control Start lipitor 40 mg po qhs Subjective Date of service: 08/07/16 Principal diagnosis: Acute hypoxemic resopiratory faillure on MVS Interval history: No interval changes. Tele is showing coarse afib with RVR. Patient off pressors however she continues to be intubated and sedated. Objective Vital Signs Temp Pulse Resp Resp BP Pulse Ox 08/07/16 09:00 92 H 25 H 101/52 99 08/07/16 08:45 105 H 25 H 107/58 95 08/07/16 08:30 135 H 17 136/75 96 08/07/16 08:25 134 H 133/67 99 08/07/16 08:15 119 H 25 H 133/67 95 08/07/16 08:00 94.4 F L 130 H 27 H 136/78 97 08/07/16 07:45 123 H 25 H 133/72 100 08/07/16 07:30 89 25 H 112/63 08/07/16 07:15 94 H 25 H 110/59 08/07/16 07:00 98 H 25 H 97/54 97 08/07/16 06:45 136 H 26 H 134/80 97 08/07/16 06:30 131 H 24 143/77 94 08/07/16 06:15 137 H 26 H 113/60 100 08/07/16 06:00 103 H 25 H 111/63 08/07/16 05:45 100 H 25 H 113/60 99 08/07/16 05:30 102 H 25 H 110/57 98 08/07/16 05:15 100 H 25 H 109/55 97 08/07/16 05:00 117 H 24 111/61 97 08/07/16 04:45 113 H 22 113/64 98 08/07/16 04:30 111 H 25 H 110/65 97 08/07/16 04:15 113 H 25 H 113/64 95 08/07/16 04:01 137 H 25 H 133/67 94 08/07/16 04:00 99.9 F H 08/07/16 03:45 142 H 21 138/86 95 08/07/16 03:30 134 H 16 146/79 95 08/07/16 03:15 122 H 25 H 113/57 95 08/07/16 03:00 143 H 25 H 145/79 96 08/07/16 02:45 124/67 95 08/07/16 02:31 159 H 26 H 161/95 96 08/07/16 02:15 156 H 15 119/63 99 08/07/16 02:00 86 25 H 124/67 08/07/16 01:45 87 25 H 115/60 98 08/07/16 01:30 89 25 H 119/63 99 08/07/16 01:15 87 24 121/60 100 08/07/16 01:00 87 25 H 119/61 99 08/07/16 00:45 91 H 24 114/60 100 08/07/16 00:30 92 H 25 H 112/56 99 08/07/16 00:15 89 25 H 118/63 100 08/07/16 00:13 89 25 H 120/64 100 08/07/16 00:09 91 H 118/63 96 08/07/16 00:00 99.7 F H 87 25 H 120/64 100 08/06/16 23:45 87 25 H 128/68 100 08/06/16 23:30 85 25 H 119/64 08/06/16 23:15 88 25 H 120/68 100 08/06/16 23:00 94 H 25 H 116/59 99 08/06/16 22:45 100 H 24 137/67 100 08/06/16 22:30 100 H 25 H 119/59 100 08/06/16 22:15 115 H 25 H 126/63 100 08/06/16 22:00 125 H 14 25 H 120/65 97 08/06/16 21:45 89 25 H 98/46 96 08/06/16 21:30 96 H 25 H 106/51 96 08/06/16 21:15 97 H 25 H 112/49 97 08/06/16 21:00 101 H 25 H 115/49 98 08/06/16 20:45 103 H 25 H 112/52 96 08/06/16 20:31 117 H 25 H 96/45 95 08/06/16 20:25 122 H 117/72 97 08/06/16 20:15 139 H 23 117/72 95 08/06/16 20:01 129 H 25 H 126/63 96 08/06/16 20:00 17 98 08/06/16 19:55 99.8 F H 08/06/16 19:45 131 H 26 H 123/66 98 08/06/16 19:30 95 H 25 H 112/61 08/06/16 19:15 95 H 25 H 108/56 99 08/06/16 19:00 96 H 23 121/61 97 08/06/16 18:45 90 25 H 103/46 96 08/06/16 18:30 91 H 25 H 115/57 08/06/16 18:15 89 25 H 105/55 99 08/06/16 18:00 91 H 25 H 110/57 98 08/06/16 17:45 91 H 21 110/57 08/06/16 17:30 94 H 25 H 106/51 08/06/16 17:15 98 H 25 H 105/55 08/06/16 17:00 94 H 25 H 107/58 08/06/16 16:45 96 H 17 110/61 08/06/16 16:30 98 H 25 H 100/59 08/06/16 16:17 92 H 108/56 100 08/06/16 16:15 97 H 25 H 108/62 99 08/06/16 16:00 99.2 F 94 H 25 H 108/56 97 08/06/16 15:45 93 H 25 H 99/52 08/06/16 15:30 93 H 25 H 105/53 99 08/06/16 15:15 95 H 25 H 103/53 98 08/06/16 15:00 95 H 25 H 100/54 100 08/06/16 14:55 98 H 104/54 98 08/06/16 14:45 95 H 25 H 104/54 08/06/16 14:30 97 H 25 H 97/53 100 08/06/16 14:15 97 H 25 H 105/56 100 08/06/16 14:00 101 H 25 H 95/58 100 08/06/16 13:45 101 H 25 H 101/54 99 08/06/16 13:30 98 H 25 H 105/51 98 08/06/16 13:15 98 H 25 H 103/51 100 08/06/16 13:00 101 H 25 H 105/58 99 08/06/16 12:45 97 H 25 H 102/55 100 08/06/16 12:30 98 H 25 H 102/52 08/06/16 12:15 103 H 25 H 104/58 08/06/16 12:00 99.7 F H 105 H 22 103/57 96 08/06/16 11:45 101 H 25 H 94/49 08/06/16 11:30 109 H 25 H 92/46 99 08/06/16 11:15 109 H 25 H 98/49 08/06/16 11:00 100 H 25 H 120/66 97 08/06/16 10:45 96 H 25 H 116/63 97 08/06/16 10:30 97 H 25 H 116/64 98 08/06/16 10:15 101 H 26 H 106/59 100 - Physical Examination General: Other (intubated on the vent) HEENT: Positive: PERRL Neck: Positive: neck supple Cardiac: Positive: irregularly irregular Lungs: Positive: Ventilated Respirations Neuro: Positive: Other (unresponsive on the vent) Abdomen: Positive: Soft Skin: Positive: Clear Extremities: Absent: edema - Labs and Meds CBC 08/07/16 Range/Units 04:00 WBC 8.0 (4.5-11.0) K/mm3 RBC 3.69 (3.65-5.03) M/mm3 Hgb 7.6 L (10.1-14.3) gm/dl Hct 26.3 L D (30.3-42.9) % Plt Count 144 (140-440) K/mm3 Lymph # 0.5 L (1.2-5.4) K/mm3 [place] # 0.5 (0.0-0.8) K/mm3 Eos # 0.0 (0.0-0.4) K/mm3 Baso # 0.0 (0.0-0.1) K/mm3 Comprehensive Metabolic Panel 08/07/16 Range/Units 04:00 Sodium 148 H (137-145) mmol/L Potassium 3.3 L (3.6-5.0) mmol/L Chloride 114.1 H (98-107) mmol/L Carbon Dioxide 23 (22-30) mmol/L BUN 13 (7-17) mg/dL Creatinine 0.4 L (0.7-1.2) mg/dL Glucose 112 H (65-100) mg/dL Calcium 8.3 L (8.4-10.2) mg/dL - Imaging and Cardiology EKG: image reviewed - Allied health notes Allied health notes reviewed: RT
[2016-08-07] MEDS: KCL 20MEQ/100ML 20 MEQ/100 ML BAG IV SCH ×2 (11:43→13:17)
[2016-08-07] MEDS: LOPRESSOR PO SCH ×4 (11:53→22:12)
[2016-08-07] MEDS: TYLENOL PO PRN (15:00)
[2016-08-07 15:31] LABS: Mean Corpuscular HGB Conc 29 % (30-34); Platelet Count 137 K/mm3 (140-440); Red Blood Count 3.83 M/mm3 (3.65-5.03); White Blood Count 8.4 K/mm3 (4.5-11.0)
[2016-08-07 15:45] LABS: Hematocrit 26.7 % (30.3-42.9); Hemoglobin 7.7 gm/dl (10.1-14.3); Mean Corpuscular Hemoglobin 20 pg (28-32); Mean Corpuscular Volume 70 fl (79-97)
--- NOTE | 2016-08-07 16:48 | Progress Note ---
Assessment and Plan Assessment and plan: Acute respiratory failure Drug overdose SIRS with hypotension COPD CHF CAD Cardiomyopathy - Patient is sedated and on mechanical ventilation - On IV antibiotics and IV fluids - Cardiology is on board - GI was consulted for coffee ground emesis at the time of intubation in the ED , currently patient has biliousfluid drainage, so patient doesn't have any active bleeding. Patient is mildly anemic with evaluate her once she is extubated - Patient is still on pressors Prophylaxis - Mechanical because of coffee-ground emesis - If no further bleeding will start her on Lovenox Prognosis - guarded Disposition - Continue ICU care. The high probability of a clinically significant, sudden or life threatening deterioration of the [neurologic, CV] system(s) required my full and direct attention, intervention and personal management. The aggregate critical care time was [31] minutes. This time is in addition to time spent performing reported procedures but includes the following: [x] Data Review and interpretation [x] Patient assessment and monitoring of vital signs [x] Documentation [x] Medication orders and management History Interval history: Patient was seen and evaluated this morning, patient is sedated on mechanical ventilation. She become agitated when she is off sedation. Hospitalist Physical - Physical exam Narrative exam: Patient is sedated and mechanically ventilated The patient appeared well nourished and normally developed. Vital signs as documented. Head exam is unremarkable. No scleral icterus . Neck is without jugular venous distension, thyromegaly, or carotid bruits. Lungs are clear to auscultation. Cardiac exam reveals regular rate and Rhythm. First and second heart sounds normal. No murmurs, rubs or gallops. Abdominal exam reveals normal bowel sounds, no masses, no organomegaly and no aortic enlargement. Extremities are nonedematous and both femoral and pedal pulses are normal. ROLL CLEANER: Sedated. - Constitutional Vitals: Temp Pulse Resp BP Pulse Ox 99.5 F 76 24 87/44 100 08/07/16 13:08 08/07/16 16:30 08/07/16 16:00 08/07/16 16:30 08/07/16 16:30 General appearance: Present: other (patient is unresponsive on the vent) Results - Labs CBC & Chem 7: 08/07/16 15:15 08/07/16 04:00 Labs: Laboratory Last Values WBC 8.4 K/mm3 (4.5-11.0) 08/07/16 15:15 RBC 3.83 M/mm3 (3.65-5.03) 08/07/16 15:15 Hgb 7.7 gm/dl (10.1-14.3) L 08/07/16 15:15 Hct 26.7 % (30.3-42.9) L 08/07/16 15:15 MCV 70 fl (79-97) L 08/07/16 15:15 MCH 20 pg (28-32) L 08/07/16 15:15 MCHC 29 % (30-34) L 08/07/16 15:15 RDW 21.0 % (13.2-15.2) H 08/07/16 15:15 Plt Count 137 K/mm3 (140-440) L 08/07/16 15:15 Lymph % (Auto) 5.8 % (13.4-35.0) L 08/07/16 04:00 [place] % (Auto) 6.4 % (0.0-7.3) 08/07/16 04:00 Eos % (Auto) 0.0 % (0.0-4.3) 08/07/16 04:00 Baso % (Auto) 0.1 % (0.0-1.8) 08/07/16 04:00 Lymph # 0.5 K/mm3 (1.2-5.4) L 08/07/16 04:00 [place] # 0.5 K/mm3 (0.0-0.8) 08/07/16 04:00 Eos # 0.0 K/mm3 (0.0-0.4) 08/07/16 04:00 Baso # 0.0 K/mm3 (0.0-0.1) 08/07/16 04:00 Add Manual Diff Complete 08/05/16 00:06 Total Counted 100 08/05/16 00:06 Seg Neutrophils % 87.7 % (40.0-70.0) H 08/07/16 04:00 Seg Neuts % (Manual) 49.0 % (40.0-70.0) 08/05/16 00:06 Band Neutrophils % 38.0 % 08/05/16 00:06 Lymphocytes % (Manual) 7.0 % (13.4-35.0) L 08/05/16 00:06 Reactive Lymphs % (Man) 0 % 08/05/16 00:06 Monocytes % (Manual) 6.0 % (0.0-7.3) 08/05/16 00:06 Eosinophils % (Manual) 0 % (0.0-4.3) 08/05/16 00:06 Basophils % (Manual) 0 % (0.0-1.8) 08/05/16 00:06 Metamyelocytes % 0 % 08/05/16 00:06 Myelocytes % 0 % 08/05/16 00:06 Promyelocytes % 0 % 08/05/16 00:06 Blast Cells % 0 % 08/05/16 00:06 Nucleated RBC % Not Reportable 08/05/16 00:06 Seg Neutrophils # 7.0 K/mm3 (1.8-7.7) 08/07/16 04:00 Seg Neutrophils # Man 9.0 K/mm3 (1.8-7.7) H 08/05/16 00:06 Band Neutrophils # 7.0 K/mm3 08/05/16 00:06 Lymphocytes # (Manual) 1.3 K/mm3 (1.2-5.4) 08/05/16 00:06 Abs React Lymphs (Man) 0.0 K/mm3 08/05/16 00:06 Monocytes # (Manual) 1.1 K/mm3 (0.0-0.8) H 08/05/16 00:06 Eosinophils # (Manual) 0.0 K/mm3 (0.0-0.4) 08/05/16 00:06 Basophils # (Manual) 0.0 K/mm3 (0.0-0.1) 08/05/16 00:06 Metamyelocytes # 0.0 K/mm3 08/05/16 00:06 Myelocytes # 0.0 K/mm3 08/05/16 00:06 Promyelocytes # 0.0 K/mm3 08/05/16 00:06 Blast Cells # 0.0 K/mm3 08/05/16 00:06 WBC Morphology Not Reportable 08/05/16 00:06 Hypersegmented Neuts Not Reportable 08/05/16 00:06 Hyposegmented Neuts Not Reportable 08/05/16 00:06 Hypogranular Neuts Not Reportable 08/05/16 00:06 Smudge Cells Not Reportable 08/05/16 00:06 Toxic Granulation Not Reportable 08/05/16 00:06 Toxic Vacuolation Not Reportable 08/05/16 00:06 Dohle Bodies Not Reportable 08/05/16 00:06 Pelger-Huet Anomaly Not Reportable 08/05/16 00:06 Neha Rods Not Reportable 08/05/16 00:06 Platelet Estimate Appears normal 08/05/16 00:06 Clumped Platelets Not Reportable 08/05/16 00:06 Plt Clumps, EDTA Not Reportable 08/05/16 00:06 Large Platelets Not Reportable 08/05/16 00:06 Giant Platelets Few 08/05/16 00:06 Platelet Satelliting Not Reportable 08/05/16 00:06 Plt Morphology Comment Not Reportable 08/05/16 00:06 RBC Morphology Not Reportable 08/05/16 00:06 Dimorphic RBCs Not Reportable 08/05/16 00:06 Polychromasia Few 08/05/16 00:06 Hypochromasia 2+ 08/05/16 00:06 Poikilocytosis Not Reportable 08/05/16 00:06 Anisocytosis 1+ 08/05/16 00:06 Microcytosis Not Reportable 08/05/16 00:06 Macrocytosis Not Reportable 08/05/16 00:06 Spherocytes Not Reportable 08/05/16 00:06 Pappenheimer Bodies Not Reportable 08/05/16 00:06 Sickle Cells Not Reportable 08/05/16 00:06 Target Cells Not Reportable 08/05/16 00:06 Tear Drop Cells Few 08/05/16 00:06 Ovalocytes Not Reportable 08/05/16 00:06 Helmet Cells Not Reportable 08/05/16 00:06 Benoit-Campo Bodies Not Reportable 08/05/16 00:06 Jones Rings Not Reportable 08/05/16 00:06 Florence Cells Not Reportable 08/05/16 00:06 Bite Cells Not Reportable 08/05/16 00:06 Crenated Cell Not Reportable 08/05/16 00:06 Elliptocytes Few 08/05/16 00:06 Acanthocytes (Spur) Not Reportable 08/05/16 00:06 Rouleaux Not Reportable 08/05/16 00:06 Hemoglobin C Crystals Not Reportable 08/05/16 00:06 Schistocytes Not Reportable 08/05/16 00:06 Malaria parasites Not Reportable 08/05/16 00:06 Hernan Bodies Not Reportable 08/05/16 00:06 Hem Pathologist Commnt No 08/05/16 00:06 PT 15.7 Sec. (12.2-14.9) H 08/05/16 00:06 INR 1.26 (0.87-1.13) H 08/05/16 00:06 APTT 40.4 Sec. (24.2-36.6) H 08/05/16 00:06 POC ABG pH 7.384 (7.35-7.45) 08/07/16 04:45 POC ABG pCO2 35.5 (35-45) 08/07/16 04:45 POC ABG pO2 58 (80-105) L 08/07/16 04:45 POC ABG HCO3 21.2 08/07/16 04:45 POC ABG Total CO2 22 08/07/16 04:45 POC ABG O2 Sat 89 08/07/16 04:45 POC ABG Base Excess -4 08/07/16 04:45 FiO2 50 % 08/07/16 04:45 Sodium 148 mmol/L (137-145) H 08/07/16 04:00 Potassium 3.3 mmol/L (3.6-5.0) L 08/07/16 04:00 Chloride 114.1 mmol/L (98-107) H 08/07/16 04:00 Carbon Dioxide 23 mmol/L (22-30) 08/07/16 04:00 Anion Gap 14 mmol/L 08/07/16 04:00 BUN 13 mg/dL (7-17) 08/07/16 04:00 Creatinine 0.4 mg/dL (0.7-1.2) L 08/07/16 04:00 Estimated GFR > 60 ml/min 08/07/16 04:00 BUN/Creatinine Ratio 32.50 % 08/07/16 04:00 Glucose 112 mg/dL (65-100) H 08/07/16 04:00 POC Glucose 106 (70-105) H 08/07/16 12:23 Lactic Acid 1.10 mmol/L (0.7-2.0) 08/05/16 03:49 Calcium 8.3 mg/dL (8.4-10.2) L 08/07/16 04:00 Total Bilirubin 0.30 mg/dL (0.1-1.2) 08/06/16 04:00 AST 17 units/L (5-40) 08/06/16 04:00 ALT 8 units/L (7-56) 08/06/16 04:00 Alkaline Phosphatase 63 units/L (35-129) 08/06/16 04:00 Total Creatine Kinase 76 units/L (30-135) 08/05/16 07:15 CK-MB (CK-2) 2.0 ng/mL (0.0-4.0) 08/05/16 07:15 CK-MB (CK-2) Rel Index 2.6 (0-4) 08/05/16 07:15 Troponin T < 0.010 ng/mL (0.00-0.029) 08/05/16 07:15 Total Protein 5.1 g/dL (6.3-8.2) L D 08/06/16 04:00 Albumin 2.5 g/dL (3.9-5) L 08/06/16 04:00 Albumin/Globulin Ratio 1.0 % 08/06/16 04:00 Urine Color Yellow (Yellow) 08/05/16 15:30 Urine Turbidity Clear (Clear) 08/05/16 15:30 Urine pH 5.0 (5.0-7.0) 08/05/16 15:30 Ur Specific [place] 1.020 (1.003-1.030) 08/05/16 15:30 Urine Protein 30 mg/dl mg/dL (Negative) 08/05/16 15:30 Urine Glucose (UA) Neg mg/dL (Negative) 08/05/16 15:30 Urine Ketones Tr mg/dL (Negative) 08/05/16 15:30 Urine Blood Mod (Negative) 08/05/16 15:30 Urine Nitrite Neg (Negative) 08/05/16 15:30 Urine Bilirubin Neg (Negative) 08/05/16 15:30 Urine Urobilinogen < 2.0 mg/dL (<2.0) 08/05/16 15:30 Ur Leukocyte Esterase Tr (Negative) 08/05/16 15:30 Urine WBC (Auto) 9.0 /HPF (0.0-6.0) H 08/05/16 15:30 Urine RBC (Auto) 1.0 /HPF (0.0-6.0) 08/05/16 15:30 U Epithel Cells (Auto) < 1.0 /HPF (0-13.0) 08/05/16 15:30 Urine Yeast (Budding) 1+ /HPF 08/05/16 15:30 Vancomycin Trough 10.2 ug/mL (5.0-20.0) 08/07/16 15:15 Salicylates 3.5 mg/dL (2.8-20.0) 08/05/16 03:49 Urine Opiates Screen Presumptive positive 08/05/16 01:06 Urine Methadone Screen Presumptive negative 08/05/16 01:06 Acetaminophen < 15.0 ug/mL (10.0-30.0) 08/05/16 00:06 Ur Barbiturates Screen Presumptive negative 08/05/16 01:06 Ur Phencyclidine Scrn Presumptive negative 08/05/16 01:06 Ur Amphetamines Screen Presumptive negative 08/05/16 01:06 U Benzodiazepines Scrn Presumptive negative 08/05/16 01:06 Urine Cocaine Screen Presumptive negative 08/05/16 01:06 U Marijuana (THC) Screen Presumptive negative 08/05/16 01:06 Drugs of Abuse Note Disclamer 08/05/16 01:06 Plasma/Serum Alcohol < 0.01 gm% (0-0.07) 08/05/16 00:06 Blood Type O POSITIVE 08/05/16 00:06 JACOB Antibody Screen Negative 08/05/16 00:06
[2016-08-08] MEDS: fentaNYL DRIP Premix 2,000 MCG/100 ML BAG IV SCH ×3 (02:30→17:50)
[2016-08-08] MEDS: DIPRIVAN 10 MG/ML 1,000 MG/100 ML BOTTLE IV SCH ×4 (02:30→23:42)
[2016-08-08] MEDS: VANCOMYCIN 1,250 MG in NACL 0.9% 250ML 250 ML IV SCH (04:42)
[2016-08-08 05:40] LABS: ISTAT Base Excess -2; ISTAT HCO3 22.7; ISTAT PCO2 36.1 (35-45); ISTAT PH 7.407 (7.35-7.45); ISTAT PO2 73 (80-105); ISTAT SO2 95; ISTAT TCO2 24
[2016-08-08] MEDS: ZOSYN/NS 4.5GM/100ML 4.5 GM/100 ML VIAL IV SCH ×3 (06:44→22:03)
[2016-08-08] MEDS: LOPRESSOR PO SCH ×3 (06:45→16:43)
[2016-08-08 06:46] LABS: Mean Corpuscular HGB Conc 29 % (30-34); Mean Corpuscular Volume 71 fl (79-97); Platelet Count 143 K/mm3 (140-440); Red Blood Count 3.82 M/mm3 (3.65-5.03)
[2016-08-08 06:49] LABS: Hemoglobin 7.8 gm/dl (10.1-14.3); Mean Corpuscular Hemoglobin 20 pg (28-32); Red Cell Distribution Width 20.5 % (13.2-15.2)
[2016-08-08] MEDS: LACTATED RINGERS 1,000 ML IV SCH ×3 (06:51→22:30)
[2016-08-08 07:04] LABS: Anion Gap 15 mmol/L; BUN/Creatinine Ratio 46.66; Blood Urea Nitrogen 14 mg/dL (7-17); Carbon Dioxide 22 mmol/L (22-30); Chloride 113.7 mmol/L (98-107); Glucose 138 mg/dL (65-100); Potassium 3.8 mmol/L (3.6-5.0); Sodium 147 mmol/L (137-145)
--- NOTE | 2016-08-08 08:25 | XRay Report ---
AP CHEST :08/08/16 CLINICAL: Follow up respiratory failure. COMPARISON:08/07/16 FINDINGS: The endotracheal tube has been removed. A nasogastric tube remains and is in satisfactory position. Stable cardiomegaly and central vascular congestion. Lungs are relatively clear. IMPRESSION: Cardiomegaly and central vascular congestion but no CHF.
[2016-08-08 09:02] LABS: Anisocytosis 1+; Basophils % (Manual) 0 % (0.0-1.8); Blastocytes % (Manual) 0 %; Eosinophils % (Manual) 0 % (0.0-4.3); Hypochromasia 2+
[2016-08-08 09:03] LABS: Diff Status Complete
[2016-08-08] MEDS: PLAVIX PO SCH (09:20)
[2016-08-08] MEDS: HALFPRIN EC PO SCH (09:20)
[2016-08-08] MEDS: PROTONIX IV SCH (09:20)
[2016-08-08] MEDS: HABITROL TD SCH (09:21)
--- NOTE | 2016-08-08 10:51 | Progress Note ---
Assessment and Plan Acute respiratory failure intubated on the vent Possible overdose SIRS Abnormal ECG ECG shows Q waves and inferior ST elevation which likely represents the inferior STEMI of 3 months ago, with persistence of ECG abnormalities. Coronary artery disease There is chronic occlusion of the distal right coronary artery, with unsuccessful angioplasty 3 months ago at [facility]. In addition, there is mid LAD stenosis which was treated successfully last month (06/26) with a bare metal stent at [facility]. On plavix and aspirin Mild Cardiomyopathy EF 40-45% on echo 06/2016 Hx of COPD Coffee ground emesis Paroxysmal afib with RVR - new onset currently in sinus rhythm Subjective Date of service: 08/08/16 Principal diagnosis: Acute hypoxemic resopiratory faillure on MVS Interval history: Remains intubated on the vent. Objective Vital Signs Temp Pulse Resp Resp BP Pulse Ox 08/08/16 09:30 81 25 H 136/80 98 08/08/16 09:15 76 25 H 151/80 98 08/08/16 09:04 90 151/80 99 08/08/16 09:00 82 25 H 151/80 99 08/08/16 08:45 87 15 133/73 98 08/08/16 08:30 80 24 133/73 99 08/08/16 08:15 65 25 H 114/66 99 08/08/16 08:00 99.1 F 63 25 H 114/66 08/08/16 07:45 58 L 26 H 110/68 99 08/08/16 07:30 60 25 H 109/67 98 08/08/16 07:15 65 25 H 110/68 99 08/08/16 07:00 64 25 H 110/68 98 08/08/16 06:45 67 25 H 157/89 97 08/08/16 06:30 102 H 15 157/89 96 08/08/16 06:15 81 25 H 142/78 98 08/08/16 06:00 96 H 25 H 142/78 98 08/08/16 05:45 132 H 20 135/81 95 08/08/16 05:30 91 H 18 135/81 08/08/16 05:28 81 122/70 97 08/08/16 05:15 84 25 H 122/70 98 08/08/16 05:00 79 25 H 122/70 100 08/08/16 04:45 73 25 H 104/57 96 08/08/16 04:30 69 25 H 104/57 95 08/08/16 04:15 74 25 H 101/52 94 08/08/16 04:01 77 25 H 101/52 93 08/08/16 04:00 99.6 F 25 H 08/08/16 03:45 92 H 25 H 141/83 95 08/08/16 03:30 114 H 25 H 141/83 94 08/08/16 03:15 123 H 22 138/87 97 08/08/16 03:00 126 H 22 157/93 98 08/08/16 02:45 134 H 21 155/85 95 08/08/16 02:30 118 H 23 149/91 97 08/08/16 02:15 156 H 23 141/78 88 08/08/16 02:00 128 H 17 138/87 95 08/08/16 01:45 118 H 26 H 125/66 95 08/08/16 01:30 88 25 H 131/71 94 08/08/16 01:15 89 25 H 125/66 94 08/08/16 01:00 99 H 21 131/77 96 08/08/16 00:45 91 H 25 H 132/72 97 08/08/16 00:37 102 H 132/72 100 08/08/16 00:30 96 H 25 H 126/66 97 08/08/16 00:15 107 H 25 H 129/68 98 08/08/16 00:00 109 H 26 H 129/79 99 08/07/16 23:50 99.1 F 08/07/16 23:45 88 25 H 134/69 96 08/07/16 23:30 115 H 19 132/110 99 08/07/16 23:15 104 H 25 H 142/88 08/07/16 23:00 86 25 H 128/75 08/07/16 22:45 89 25 H 124/72 08/07/16 22:30 95 H 24 121/70 100 08/07/16 22:15 120 H 26 H 116/67 100 08/07/16 22:12 128 H 136/76 08/07/16 22:00 120 H 25 H 25 H 136/76 100 08/07/16 21:45 116 H 25 H 123/70 08/07/16 21:31 120 H 26 H 125/80 100 08/07/16 21:15 110 H 21 130/74 100 08/07/16 21:13 110 H 22 137/74 100 08/07/16 21:00 108 H 18 137/74 100 08/07/16 20:50 118 H 133/74 100 08/07/16 20:45 116 H 20 133/74 100 08/07/16 20:30 123 H 20 140/73 100 08/07/16 20:15 124 H 22 141/83 100 08/07/16 20:00 98.8 F 105 H 18 139/70 99 08/07/16 19:45 127 H 25 H 113/64 100 08/07/16 19:30 78 25 H 113/64 99 08/07/16 19:15 81 25 H 95/52 99 08/07/16 19:00 74 25 H 97/51 98 08/07/16 18:45 72 25 H 104/56 99 08/07/16 18:30 74 25 H 98/53 08/07/16 18:15 74 25 H 90/44 99 08/07/16 18:00 74 25 H 102/60 08/07/16 17:45 69 25 H 94/53 08/07/16 17:30 69 25 H 91/53 99 08/07/16 17:15 69 25 H 97/59 99 08/07/16 17:00 72 25 H 92/54 99 08/07/16 16:57 98.5 F 08/07/16 16:45 71 25 H 95/51 100 08/07/16 16:30 76 25 H 98/53 98 08/07/16 16:15 76 25 H 87/44 99 08/07/16 16:00 73 24 89/48 98 08/07/16 15:45 77 25 H 92/47 98 08/07/16 15:30 83 25 H 100/50 98 08/07/16 15:15 98 H 25 H 116/65 08/07/16 15:00 94 H 24 113/52 98 08/07/16 14:52 138 H 118/60 08/07/16 14:45 132 H 25 H 114/61 98 08/07/16 14:30 126 H 25 H 118/60 99 08/07/16 14:15 111 H 19 124/68 98 08/07/16 14:00 84 25 H 97/47 99 08/07/16 13:45 79 25 H 97/52 98 08/07/16 13:30 80 25 H 87/45 99 08/07/16 13:15 82 25 H 97/46 99 08/07/16 13:08 99.5 F 08/07/16 13:00 81 25 H 95/49 99 08/07/16 12:45 82 25 H 86/43 99 08/07/16 12:30 88 25 H 89/44 99 08/07/16 12:15 86 25 H 95/47 98 08/07/16 12:00 90 25 H 99/48 98 08/07/16 11:56 105 H 90/43 100 08/07/16 11:53 90 90/43 08/07/16 11:45 92 H 25 H 90/43 98 08/07/16 11:30 83 25 H 93/45 97 08/07/16 11:15 89 25 H 90/44 98 08/07/16 11:00 86 25 H 90/45 98 - Physical Examination General: Other (intubated on the vent) Cardiac: Positive: Reg Rate and Rhythm - Labs and Meds CBC 08/07/16 08/08/16 Range/Units 15:15 06:00 WBC 8.4 9.0 (4.5-11.0) K/mm3 RBC 3.83 3.82 (3.65-5.03) M/mm3 Hgb 7.7 L 7.8 L (10.1-14.3) gm/dl Hct 26.7 L 27.0 L (30.3-42.9) % Plt Count 137 L 143 (140-440) K/mm3 Comprehensive Metabolic Panel 08/08/16 Range/Units 06:00 Sodium 147 H (137-145) mmol/L Potassium 3.8 (3.6-5.0) mmol/L Chloride 113.7 H (98-107) mmol/L Carbon Dioxide 22 (22-30) mmol/L BUN 14 (7-17) mg/dL Creatinine 0.3 L (0.7-1.2) mg/dL Glucose 138 H (65-100) mg/dL Calcium 8.0 L (8.4-10.2) mg/dL - Imaging and Cardiology EKG: image reviewed - Allied health notes Allied health notes reviewed: RT
[2016-08-08] MEDS: HALDOL IV PRN (12:29)
[2016-08-08] MEDS: VANCOMYCIN 1,750 MG in NACL 0.9% 500 ML 500 ML IV SCH (15:04)
--- NOTE | 2016-08-08 16:11 | Progress Note ---
Assessment and Plan Assessment and plan: Acute respiratory failure on mechanical ventilation > 96hrs Drug overdose SIRS with hypotension COPD CHF CAD Cardiomyopathy - Patient is sedated and on mechanical ventilation - On IV antibiotics and IV fluids - Blood, urine and tracheal aspirate cultures are negative - Cardiology and pulmonary consult appreciated - GI was consulted for coffee ground emesis at the time of intubation in the ED , currently patient has biliousfluid drainage, so patient doesn't have any active bleeding. Patient is mildly anemic and GI evaluate her once she is extubated for possible EGD. FOBT is positive. - Patient is off pressors Prophylaxis - Mechanical because of coffee-ground emesis - If no further bleeding will start her on Lovenox Prognosis - guarded Disposition - Continue ICU care. The high probability of a clinically significant, sudden or life threatening deterioration of the [neurologic, CV] system(s) required my full and direct attention, intervention and personal management. The aggregate critical care time was [31] minutes. This time is in addition to time spent performing reported procedures but includes the following: [x] Data Review and interpretation [x] Patient assessment and monitoring of vital signs [x] Documentation [x] Medication orders and management History Interval history: Patient was seen and evaluated this morning, patient is sedated on mechanical ventilation. She become agitated when she is off sedation. Hospitalist Physical - Physical exam Narrative exam: Patient is sedated and mechanically ventilated The patient appeared well nourished and normally developed. Vital signs as documented. Head exam is unremarkable. No scleral icterus . Neck is without jugular venous distension, thyromegaly, or carotid bruits. Lungs are clear to auscultation. Cardiac exam reveals regular rate and Rhythm. First and second heart sounds normal. No murmurs, rubs or gallops. Abdominal exam reveals normal bowel sounds, no masses, no organomegaly and no aortic enlargement. Extremities are nonedematous and both femoral and pedal pulses are normal. CONSULTING SENIOR PRACTICE DIRECTOR: Sedated. - Constitutional Vitals: Temp Pulse Resp BP Pulse Ox 98.5 F 65 23 121/65 98 08/08/16 12:00 08/08/16 15:45 08/08/16 15:45 08/08/16 15:45 08/08/16 15:45 General appearance: Present: other (patient is unresponsive on the vent) Results - Labs CBC & Chem 7: 08/08/16 06:00 08/08/16 06:00 Labs: Laboratory Last Values WBC 9.0 K/mm3 (4.5-11.0) 08/08/16 06:00 RBC 3.82 M/mm3 (3.65-5.03) 08/08/16 06:00 Hgb 7.8 gm/dl (10.1-14.3) L 08/08/16 06:00 Hct 27.0 % (30.3-42.9) L 08/08/16 06:00 MCV 71 fl (79-97) L 08/08/16 06:00 MCH 20 pg (28-32) L 08/08/16 06:00 MCHC 29 % (30-34) L 08/08/16 06:00 RDW 20.5 % (13.2-15.2) H 08/08/16 06:00 Plt Count 143 K/mm3 (140-440) 08/08/16 06:00 Lymph % (Auto) 5.8 % (13.4-35.0) L 08/07/16 04:00 [place] % (Auto) 6.4 % (0.0-7.3) 08/07/16 04:00 Eos % (Auto) 0.0 % (0.0-4.3) 08/07/16 04:00 Baso % (Auto) 0.1 % (0.0-1.8) 08/07/16 04:00 Lymph # 0.5 K/mm3 (1.2-5.4) L 08/07/16 04:00 [place] # 0.5 K/mm3 (0.0-0.8) 08/07/16 04:00 Eos # 0.0 K/mm3 (0.0-0.4) 08/07/16 04:00 Baso # 0.0 K/mm3 (0.0-0.1) 08/07/16 04:00 Add Manual Diff Complete 08/08/16 06:00 Total Counted 100 08/08/16 06:00 Seg Neutrophils % Warehouse Operations Manager 08/08/16 06:00 Seg Neuts % (Manual) 95.0 % (40.0-70.0) H 08/08/16 06:00 Band Neutrophils % 0 % 08/08/16 06:00 Lymphocytes % (Manual) 1.0 % (13.4-35.0) L 08/08/16 06:00 Reactive Lymphs % (Man) 0 % 08/08/16 06:00 Monocytes % (Manual) 4.0 % (0.0-7.3) 08/08/16 06:00 Eosinophils % (Manual) 0 % (0.0-4.3) 08/08/16 06:00 Basophils % (Manual) 0 % (0.0-1.8) 08/08/16 06:00 Metamyelocytes % 0 % 08/08/16 06:00 Myelocytes % 0 % 08/08/16 06:00 Promyelocytes % 0 % 08/08/16 06:00 Blast Cells % 0 % 08/08/16 06:00 Nucleated RBC % 1.0 % (0.0-0.9) H 08/08/16 06:00 Seg Neutrophils # 7.0 K/mm3 (1.8-7.7) 08/07/16 04:00 Seg Neutrophils # Man 8.6 K/mm3 (1.8-7.7) H 08/08/16 06:00 Band Neutrophils # 0.0 K/mm3 08/08/16 06:00 Lymphocytes # (Manual) 0.1 K/mm3 (1.2-5.4) L 08/08/16 06:00 Abs React Lymphs (Man) 0.0 K/mm3 08/08/16 06:00 Monocytes # (Manual) 0.4 K/mm3 (0.0-0.8) 08/08/16 06:00 Eosinophils # (Manual) 0.0 K/mm3 (0.0-0.4) 08/08/16 06:00 Basophils # (Manual) 0.0 K/mm3 (0.0-0.1) 08/08/16 06:00 Metamyelocytes # 0.0 K/mm3 08/08/16 06:00 Myelocytes # 0.0 K/mm3 08/08/16 06:00 Promyelocytes # 0.0 K/mm3 08/08/16 06:00 Blast Cells # 0.0 K/mm3 08/08/16 06:00 WBC Morphology Not Reportable 08/08/16 06:00 Hypersegmented Neuts Not Reportable 08/08/16 06:00 Hyposegmented Neuts Not Reportable 08/08/16 06:00 Hypogranular Neuts Not Reportable 08/08/16 06:00 Smudge Cells Not Reportable 08/08/16 06:00 Toxic Granulation Not Reportable 08/08/16 06:00 Toxic Vacuolation Not Reportable 08/08/16 06:00 Dohle Bodies Not Reportable 08/08/16 06:00 Pelger-Huet Anomaly Not Reportable 08/08/16 06:00 Neha Rods Not Reportable 08/08/16 06:00 Platelet Estimate Appears normal 08/08/16 06:00 Clumped Platelets Not Reportable 08/08/16 06:00 Plt Clumps, EDTA Not Reportable 08/08/16 06:00 Large Platelets Not Reportable 08/08/16 06:00 Giant Platelets Not Reportable 08/08/16 06:00 Platelet Satelliting Not Reportable 08/08/16 06:00 Plt Morphology Comment Not Reportable 08/08/16 06:00 RBC Morphology Not Reportable 08/08/16 06:00 Dimorphic RBCs Not Reportable 08/08/16 06:00 Polychromasia Not Reportable 08/08/16 06:00 Hypochromasia 2+ 08/08/16 06:00 Poikilocytosis Not Reportable 08/08/16 06:00 Anisocytosis 1+ 08/08/16 06:00 Microcytosis Not Reportable 08/08/16 06:00 Macrocytosis Not Reportable 08/08/16 06:00 Spherocytes Not Reportable 08/08/16 06:00 Pappenheimer Bodies Not Reportable 08/08/16 06:00 Sickle Cells Not Reportable 08/08/16 06:00 Target Cells Not Reportable 08/08/16 06:00 Tear Drop Cells Not Reportable 08/08/16 06:00 Ovalocytes Not Reportable 08/08/16 06:00 Helmet Cells Not Reportable 08/08/16 06:00 Ben[place]on Bodies Not Reportable 08/08/16 06:00 [place] Rings Not Reportable 08/08/16 06:00 [place] Cells Not Reportable 08/08/16 06:00 Bite Cells Not Reportable 08/08/16 06:00 Crenated Cell Not Reportable 08/08/16 06:00 Elliptocytes Not Reportable 08/08/16 06:00 Acanthocytes (Spur) Not Reportable 08/08/16 06:00 Rouleaux Not Reportable 08/08/16 06:00 Hemoglobin C Crystals Not Reportable 08/08/16 06:00 Schistocytes Not Reportable 08/08/16 06:00 Malaria parasites Not Reportable 08/08/16 06:00 Hernan Bodies Not Reportable 08/08/16 06:00 Hem Pathologist Commnt No 08/08/16 06:00 PT 15.7 Sec. (12.2-14.9) H 08/05/16 00:06 INR 1.26 (0.87-1.13) H 08/05/16 00:06 APTT 40.4 Sec. (24.2-36.6) H 08/05/16 00:06 POC ABG pH 7.407 (7.35-7.45) 08/08/16 05:28 POC ABG pCO2 36.1 (35-45) 08/08/16 05:28 POC ABG pO2 73 (80-105) L 08/08/16 05:28 POC ABG HCO3 22.7 08/08/16 05:28 POC ABG Total CO2 24 08/08/16 05:28 POC ABG O2 Sat 95 08/08/16 05:28 POC ABG Base Excess -2 08/08/16 05:28 FiO2 50 % 08/08/16 05:28 Sodium 147 mmol/L (137-145) H 08/08/16 06:00 Potassium 3.8 mmol/L (3.6-5.0) 08/08/16 06:00 Chloride 113.7 mmol/L (98-107) H 08/08/16 06:00 Carbon Dioxide 22 mmol/L (22-30) 08/08/16 06:00 Anion Gap 15 mmol/L 08/08/16 06:00 BUN 14 mg/dL (7-17) 08/08/16 06:00 Creatinine 0.3 mg/dL (0.7-1.2) L 08/08/16 06:00 Estimated GFR > 60 ml/min 08/08/16 06:00 BUN/Creatinine Ratio 46.66 % 08/08/16 06:00 Glucose 138 mg/dL (65-100) H 08/08/16 06:00 POC Glucose 146 (70-105) H 08/08/16 12:38 Lactic Acid 1.10 mmol/L (0.7-2.0) 08/05/16 03:49 Calcium 8.0 mg/dL (8.4-10.2) L 08/08/16 06:00 Total Bilirubin 0.30 mg/dL (0.1-1.2) 08/06/16 04:00 AST 17 units/L (5-40) 08/06/16 04:00 ALT 8 units/L (7-56) 08/06/16 04:00 Alkaline Phosphatase 63 units/L (35-129) 08/06/16 04:00 Total Creatine Kinase 76 units/L (30-135) 08/05/16 07:15 CK-MB (CK-2) 2.0 ng/mL (0.0-4.0) 08/05/16 07:15 CK-MB (CK-2) Rel Index 2.6 (0-4) 08/05/16 07:15 Troponin T < 0.010 ng/mL (0.00-0.029) 08/05/16 07:15 Total Protein 5.1 g/dL (6.3-8.2) L D 08/06/16 04:00 Albumin 2.5 g/dL (3.9-5) L 08/06/16 04:00 Albumin/Globulin Ratio 1.0 % 08/06/16 04:00 Urine Color Yellow (Yellow) 08/05/16 15:30 Urine Turbidity Clear (Clear) 08/05/16 15:30 Urine pH 5.0 (5.0-7.0) 08/05/16 15:30 Ur Specific [place] 1.020 (1.003-1.030) 08/05/16 15:30 Urine Protein 30 mg/dl mg/dL (Negative) 08/05/16 15:30 Urine Glucose (UA) Neg mg/dL (Negative) 08/05/16 15:30 Urine Ketones Tr mg/dL (Negative) 08/05/16 15:30 Urine Blood Mod (Negative) 08/05/16 15:30 Urine Nitrite Neg (Negative) 08/05/16 15:30 Urine Bilirubin Neg (Negative) 08/05/16 15:30 Urine Urobilinogen < 2.0 mg/dL (<2.0) 08/05/16 15:30 Ur Leukocyte Esterase Tr (Negative) 08/05/16 15:30 Urine WBC (Auto) 9.0 /HPF (0.0-6.0) H 08/05/16 15:30 Urine RBC (Auto) 1.0 /HPF (0.0-6.0) 08/05/16 15:30 U Epithel Cells (Auto) < 1.0 /HPF (0-13.0) 08/05/16 15:30 Urine Yeast (Budding) 1+ /HPF 08/05/16 15:30 Vancomycin Trough 10.2 ug/mL (5.0-20.0) 08/07/16 15:15 Salicylates 3.5 mg/dL (2.8-20.0) 08/05/16 03:49 Urine Opiates Screen Presumptive positive 08/05/16 01:06 Urine Methadone Screen Presumptive negative 08/05/16 01:06 Acetaminophen < 15.0 ug/mL (10.0-30.0) 08/05/16 00:06 Ur Barbiturates Screen Presumptive negative 08/05/16 01:06 Ur Phencyclidine Scrn Presumptive negative 08/05/16 01:06 Ur Amphetamines Screen Presumptive negative 08/05/16 01:06 U Benzodiazepines Scrn Presumptive negative 08/05/16 01:06 Urine Cocaine Screen Presumptive negative 08/05/16 01:06 U Marijuana (THC) Screen Presumptive negative 08/05/16 01:06 Drugs of Abuse Note Disclamer 08/05/16 01:06 Plasma/Serum Alcohol < 0.01 gm% (0-0.07) 08/05/16 00:06 Blood Type O POSITIVE 08/05/16 00:06 JACOB Antibody Screen Negative 08/05/16 00:06
--- NOTE | 2016-08-08 16:44 | XRay Report ---
PORTABLE CHEST INDICATION: Left arm PICC placement. COMPARISON: 2:04 AM earlier today. FINDINGS: Portable, frontal chest radiographs, 4:27 PM, 08/08/2016, 2 images demonstrate new left upper extremity PICC tip about the cavoatrial junction, though in part obscured due to extensive thoracic spinal hardware. Stable right IJ catheter as also endotracheal and esophagogastric tubes. Mild central congestive appearance and mild cardiomegaly again seen. Left retrocardiac opacity and hazy small bilateral layering pleural effusions again possible. EKG leads. Stable bones. CONCLUSION: Interval uncomplicated left upper extremity PICC placement; otherwise stable. Thank you for the opportunity to participate in this patient's care.
--- NOTE | 2016-08-08 16:58 | Progress Note ---
Assessment and Plan - Patient Problems (1) Acute respiratory failure Current Visit: Yes Status: Acute Qualifiers: Respiratory failure complication: hypoxia Qualified Code(s): J96.01 - Acute respiratory failure with hypoxia Plan to address problem: Continue on mechanical ventilatory support VAP and critical care bundles addressed bundle Extremely agitated- started propofol infusion for RAAS -1. On fentanyl Seroquel added, as agitation is precluding SAT/SBT at this time Harley catheter Stress ulcer prophylaxis SCDs for VTE prophylaxis in viwe of anemia and reported coffee ground emesis- if she remains hemodynamically normal and hemoglobin is stable will initiate heparin Stress ulcer prophylaxis- Pantoprazole (2) COPD exacerbation Current Visit: No Status: Acute Plan to address problem: Continue with mechanical ventilatory support Bronchodilators Monitor airway pressures (3) Aspiration pneumonia Current Visit: Yes Status: Acute Qualifiers: Aspiration pneumonia type: A Laterality: L Lung location: L Plan to address problem: Antibiotics Aspiration precautions (4) Tobacco abuse Current Visit: No Status: Chronic Plan to address problem: Nicotine withdrawal precautions Nicotine patch Smoking cessation counselling closer to discharge (5) Overdose Current Visit: Yes Status: Acute Qualifiers: Encounter type: E Injury intent: I Plan to address problem: Monitor for arrthymias and side effects of narcotic overdose Monitor for urinary retention and constipation Subjective Date of service: 08/08/16 Principal diagnosis: Acute hypoxemic resopiratory faillure on MVS Interval history: Remains sedated and intubated. Continues to remain agitated No acute overnight events otherwise. Seen and examined. Vitals,labs, medications, chart reviewed. Improving gas exchange Discussed in interdisciplinary ICU rounds The high probability of a clinically significant, sudden or life threatening deterioration of the [neurologic, CV] system(s) required my full and direct attention, intervention and personal management. The aggregate critical care time was [31] minutes. This time is in addition to time spent performing reported procedures but includes the following: [x] Data Review and interpretation [x] Patient assessment and monitoring of vital signs [x] Documentation [x] Medication orders and management Objective - Exam Narrative Exam: Patient is sedated and mechanically ventilated The patient appeared well nourished and normally developed. Vital signs as documented. Head exam is unremarkable. No scleral icterus . Neck is without jugular venous distension, thyromegaly, or carotid bruits. Lungs are clear to auscultation. Cardiac exam reveals regular rate and Rhythm. First and second heart sounds normal. No murmurs, rubs or gallops. Abdominal exam reveals normal bowel sounds, no masses, no organomegaly and no aortic enlargement. Extremities are non edematous and both femoral and pedal pulses are normal. 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 Vital Signs - 12hr 08/08/16 08/08/16 08/08/16 05:00 05:15 05:28 Temperature Pulse Rate 79 84 81 Respiratory 25 H 25 H Rate Respiratory Rate [Medial Back] Blood Pressure 122/70 122/70 122/70 O2 Sat by Pulse 100 98 97 Oximetry 08/08/16 08/08/16 08/08/16 05:30 05:45 06:00 Temperature Pulse Rate 91 H 132 H 96 H Respiratory 18 20 25 H Rate Respiratory Rate [Medial Back] Blood Pressure 135/81 135/81 142/78 O2 Sat by Pulse 95 98 Oximetry 08/08/16 08/08/16 08/08/16 06:15 06:30 06:45 Temperature Pulse Rate 81 102 H 67 Respiratory 25 H 15 25 H Rate Respiratory Rate [Medial Back] Blood Pressure 142/78 157/89 157/89 O2 Sat by Pulse 98 96 97 Oximetry 08/08/16 08/08/16 08/08/16 07:00 07:15 07:30 Temperature Pulse Rate 100 H 65 60 Respiratory 25 H 25 H 25 H Rate Respiratory Rate [Medial Back] Blood Pressure 110/68 110/68 109/67 O2 Sat by Pulse 98 99 98 Oximetry 08/08/16 08/08/16 08/08/16 07:45 08:00 08:15 Temperature 99.1 F Pulse Rate 58 L 63 65 Respiratory 26 H 25 H 25 H Rate Respiratory Rate [Medial Back] Blood Pressure 110/68 114/66 114/66 O2 Sat by Pulse 99 99 Oximetry 08/08/16 08/08/16 08/08/16 08:30 08:45 09:00 Temperature Pulse Rate 80 87 82 Respiratory 24 15 25 H Rate Respiratory Rate [Medial Back] Blood Pressure 133/73 133/73 151/80 O2 Sat by Pulse 99 98 99 Oximetry 08/08/16 08/08/16 08/08/16 09:04 09:15 09:30 Temperature Pulse Rate 90 76 81 Respiratory 25 H 25 H Rate Respiratory Rate [Medial Back] Blood Pressure 151/80 151/80 136/80 O2 Sat by Pulse 99 98 98 Oximetry 08/08/16 08/08/16 08/08/16 09:45 10:00 10:15 Temperature Pulse Rate 79 78 77 Respiratory 25 H 25 H 25 H Rate Respiratory 25 H Rate [Medial Back] Blood Pressure 136/80 131/72 131/72 O2 Sat by Pulse 97 97 97 Oximetry 08/08/16 08/08/16 08/08/16 10:30 10:45 11:00 Temperature Pulse Rate 68 70 66 Respiratory 25 H 25 H 25 H Rate Respiratory Rate [Medial Back] Blood Pressure 124/68 124/68 114/63 O2 Sat by Pulse 99 98 95 Oximetry 08/08/16 08/08/16 08/08/16 11:15 11:30 11:45 Temperature Pulse Rate 67 71 90 Respiratory 23 25 H 25 H Rate Respiratory Rate [Medial Back] Blood Pressure 114/63 105/59 105/59 O2 Sat by Pulse 97 97 97 Oximetry 08/08/16 08/08/16 08/08/16 12:00 12:14 12:15 Temperature 98.5 F Pulse Rate 93 H 89 94 H Respiratory 26 H 25 H Rate Respiratory Rate [Medial Back] Blood Pressure 133/74 133/74 133/74 O2 Sat by Pulse 97 96 Oximetry 08/08/16 08/08/16 08/08/16 12:28 12:30 12:45 Temperature Pulse Rate 90 77 67 Respiratory 25 H 25 H Rate Respiratory Rate [Medial Back] Blood Pressure 133/74 128/63 128/63 O2 Sat by Pulse 100 99 99 Oximetry 08/08/16 08/08/16 08/08/16 13:00 13:15 13:30 Temperature Pulse Rate 63 66 63 Respiratory 25 H 25 H 25 H Rate Respiratory Rate [Medial Back] Blood Pressure 113/64 113/64 118/64 O2 Sat by Pulse 99 98 99 Oximetry 08/08/16 08/08/16 08/08/16 13:45 14:00 14:15 Temperature Pulse Rate 64 65 70 Respiratory 25 H 25 H 24 Rate Respiratory Rate [Medial Back] Blood Pressure 118/64 116/63 116/63 O2 Sat by Pulse 98 100 99 Oximetry 08/08/16 08/08/16 08/08/16 14:30 14:45 15:01 Temperature Pulse Rate 80 87 82 Respiratory 24 24 24 Rate Respiratory Rate [Medial Back] Blood Pressure 117/57 117/57 146/77 O2 Sat by Pulse 99 100 Oximetry 08/08/16 08/08/16 08/08/16 15:15 15:30 15:45 Temperature Pulse Rate 69 65 65 Respiratory 24 18 23 Rate Respiratory Rate [Medial Back] Blood Pressure 146/77 121/65 121/65 O2 Sat by Pulse 98 98 98 Oximetry 08/08/16 08/08/16 08/08/16 16:00 16:15 16:33 Temperature Pulse Rate 84 76 82 Respiratory 24 25 H Rate Respiratory Rate [Medial Back] Blood Pressure 161/89 161/89 161/89 O2 Sat by Pulse 100 98 99 Oximetry 08/08/16 16:43 Temperature Pulse Rate 77 Respiratory Rate Respiratory Rate [Medial Back] Blood Pressure 144/75 O2 Sat by Pulse Oximetry Constitutional: no acute distress Eyes: non-icteric ENT: oropharynx moist Neck: supple, no lymphadenopathy, no JVD Effort: normal Ascultation: Bilateral: diminished breath sounds, rhonchi Cardiovascular: regular rate and rhythm Gastrointestinal: normoactive bowel sounds, soft, non-tender, non-distended Integumentary: normal Extremities: no cyanosis, no edema, pink and warm, pulses normal, no ischemia or petechiae Neurologic: other (intubated, sedated) CBC and BMP: 08/08/16 06:00 08/08/16 06:00 ABG, PT/INR, D-dimer: ABG POC ABG pH 7.407 (7.35-7.45) 08/08/16 05:28 POC ABG pCO2 36.1 (35-45) 08/08/16 05:28 POC ABG pO2 73 (80-105) L 08/08/16 05:28 POC ABG HCO3 22.7 08/08/16 05:28 POC ABG Total CO2 24 08/08/16 05:28 POC ABG O2 Sat 95 08/08/16 05:28 PT/INR, D-dimer PT 15.7 Sec. (12.2-14.9) H 08/05/16 00:06 INR 1.26 (0.87-1.13) H 08/05/16 00:06 Abnormal lab findings: Abnormal Labs 08/05/16 08/05/16 08/05/16 03:41 03:49 03:50 Hgb 8.8 L Hct MCV MCH MCHC RDW Plt Count Lymph % (Auto) Lymph # Seg Neutrophils % Seg Neuts % (Manual) Lymphocytes % (Manual) Nucleated RBC % Seg Neutrophils # Man Lymphocytes # (Manual) POC ABG pH 7.269 L 7.269 L POC ABG pO2 32 L Sodium Potassium Chloride Carbon Dioxide Creatinine Glucose POC Glucose Calcium Total Protein Albumin Urine WBC (Auto) 08/05/16 08/05/16 08/05/16 07:15 10:16 14:35 Hgb 9.0 L 9.1 L 9.5 L Hct MCV MCH MCHC RDW Plt Count Lymph % (Auto) Lymph # Seg Neutrophils % Seg Neuts % (Manual) Lymphocytes % (Manual) Nucleated RBC % Seg Neutrophils # Man Lymphocytes # (Manual) POC ABG pH POC ABG pO2 Sodium Potassium Chloride Carbon Dioxide Creatinine Glucose POC Glucose Calcium Total Protein Albumin Urine WBC (Auto) 08/05/16 08/06/16 08/06/16 15:30 04:00 04:45 Hgb Hct MCV MCH MCHC RDW Plt Count Lymph % (Auto) Lymph # Seg Neutrophils % Seg Neuts % (Manual) Lymphocytes % (Manual) Nucleated RBC % Seg Neutrophils # Man Lymphocytes # (Manual) POC ABG pH POC ABG pO2 69 L Sodium 150 H Potassium 3.2 L Chloride 116.6 H Carbon Dioxide 21 L Creatinine 0.4 L D Glucose 107 H POC Glucose Calcium 7.9 L Total Protein 5.1 L D Albumin 2.5 L Urine WBC (Auto) 9.0 H 08/07/16 08/07/16 08/07/16 04:00 04:00 04:45 Hgb 7.6 L Hct 26.3 L D MCV 71 L MCH 21 L MCHC 29 L RDW 21.1 H Plt Count Lymph % (Auto) 5.8 L Lymph # 0.5 L Seg Neutrophils % 87.7 H Seg Neuts % (Manual) Lymphocytes % (Manual) Nucleated RBC % Seg Neutrophils # Man Lymphocytes # (Manual) POC ABG pH POC ABG pO2 58 L Sodium 148 H Potassium 3.3 L Chloride 114.1 H Carbon Dioxide Creatinine 0.4 L Glucose 112 H POC Glucose Calcium 8.3 L Total Protein Albumin Urine WBC (Auto) 08/07/16 08/07/16 08/07/16 12:23 15:15 17:59 Hgb 7.7 L Hct 26.7 L MCV 70 L MCH 20 L MCHC 29 L RDW 21.0 H Plt Count 137 L Lymph % (Auto) Lymph # Seg Neutrophils % Seg Neuts % (Manual) Lymphocytes % (Manual) Nucleated RBC % Seg Neutrophils # Man Lymphocytes # (Manual) POC ABG pH POC ABG pO2 Sodium Potassium Chloride Carbon Dioxide Creatinine Glucose POC Glucose 106 H 141 H Calcium Total Protein Albumin Urine WBC (Auto) 08/07/16 08/08/16 08/08/16 23:25 05:28 05:52 Hgb Hct MCV MCH MCHC RDW Plt Count Lymph % (Auto) Lymph # Seg Neutrophils % Seg Neuts % (Manual) Lymphocytes % (Manual) Nucleated RBC % Seg Neutrophils # Man Lymphocytes # (Manual) POC ABG pH POC ABG pO2 73 L Sodium Potassium Chloride Carbon Dioxide Creatinine Glucose POC Glucose 127 H 131 H Calcium Total Protein Albumin Urine WBC (Auto) 08/08/16 08/08/16 08/08/16 06:00 06:00 12:38 Hgb 7.8 L Hct 27.0 L MCV 71 L MCH 20 L MCHC 29 L RDW 20.5 H Plt Count Lymph % (Auto) Lymph # Seg Neutrophils % Seg Neuts % (Manual) 95.0 H Lymphocytes % (Manual) 1.0 L Nucleated RBC % 1.0 H Seg Neutrophils # Man 8.6 H Lymphocytes # (Manual) 0.1 L POC ABG pH POC ABG pO2 Sodium 147 H Potassium Chloride 113.7 H Carbon Dioxide Creatinine 0.3 L Glucose 138 H POC Glucose 146 H Calcium 8.0 L Total Protein Albumin Urine WBC (Auto) Allied health notes reviewed: RT
[2016-08-09] MEDS: fentaNYL DRIP Premix 2,000 MCG/100 ML BAG IV SCH ×2 (02:09→11:48)
[2016-08-09] MEDS: LACTATED RINGERS 1,000 ML IV SCH ×2 (06:24→21:40)
[2016-08-09 06:50] LABS: Basophils % (Auto) 0.9 % (0.0-1.8); Hematocrit 27.7 % (30.3-42.9); Hemoglobin 8.3 gm/dl (10.1-14.3); Mean Corpuscular HGB Conc 30 % (30-34); Platelet Count 127 K/mm3 (140-440); Red Blood Count 3.97 M/mm3 (3.65-5.03); White Blood Count 7.5 K/mm3 (4.5-11.0)
[2016-08-09 06:58] LABS: Mean Corpuscular Hemoglobin 21 pg (28-32); Mean Corpuscular Volume 70 fl (79-97); Red Cell Distribution Width 20.2 % (13.2-15.2)
[2016-08-09] MEDS: ZOSYN/NS 4.5GM/100ML 4.5 GM/100 ML VIAL IV SCH (07:04)
[2016-08-09 07:05] LABS: ISTAT Base Excess -1; ISTAT HCO3 23.1; ISTAT PCO2 32.9 (35-45); ISTAT PH 7.455 (7.35-7.45); ISTAT PO2 67 (80-105); ISTAT SO2 94; ISTAT TCO2 24
[2016-08-09] MEDS: DIPRIVAN 10 MG/ML 1,000 MG/100 ML BOTTLE IV SCH ×3 (07:10→11:34)
--- NOTE | 2016-08-09 07:12 | XRay Report ---
Single view chest: Compared to 08/08/16. History: Followup of respiratory failure. Findings: Cardiomegaly. Stable support system. Right PICC line has been removed. The tip of left PICC line is in mid superior vena cava. Mild pulmonary vascular congestion with left pleural effusion. No significant interval change. Impression: No significant interval change.
[2016-08-09 07:13] LABS: Anion Gap 16 mmol/L; BUN/Creatinine Ratio 43.33; Blood Urea Nitrogen 13 mg/dL (7-17); Calcium 8.2 mg/dL (8.4-10.2); Carbon Dioxide 23 mmol/L (22-30); Chloride 107.9 mmol/L (98-107); Glucose 140 mg/dL (65-100); Sodium 143 mmol/L (137-145)
--- NOTE | 2016-08-09 07:23 | Progress Note ---
Assessment and Plan Acute respiratory failure intubated on the vent Possible overdose SIRS Abnormal ECG ECG shows Q waves and inferior ST elevation which likely represents the inferior STEMI of 3 months ago, with persistence of ECG abnormalities. Coronary artery disease There is chronic occlusion of the distal right coronary artery, with unsuccessful angioplasty 3 months ago at [facility]. In addition, there is mid LAD stenosis which was treated successfully last month (06/26) with a bare metal stent at [facility]. On plavix and aspirin Mild Cardiomyopathy EF 40-45% on echo 06/2016 Hx of COPD Coffee ground emesis Paroxysmal afib with RVR - new onset currently in sinus rhythm Continue DAPT Continue metoprolol Rest per primary team Prognosis guarded Subjective Date of service: 08/09/16 Principal diagnosis: Acute hypoxemic resopiratory faillure on MVS Interval history: No events overnight Objective Vital Signs Temp Pulse Resp Resp BP Pulse Ox 08/09/16 05:13 68 156/85 97 08/09/16 04:00 98.9 F 08/09/16 00:30 66 25 H 128/68 96 08/09/16 00:15 72 24 140/71 96 08/09/16 00:00 98.2 F 61 17 140/71 95 08/08/16 23:59 63 154/92 97 08/08/16 23:45 66 25 H 124/68 97 08/08/16 23:31 89 12 154/92 91 08/08/16 23:15 58 L 25 H 118/63 97 08/08/16 23:00 59 L 25 H 124/68 97 08/08/16 22:45 65 24 118/63 99 08/08/16 22:30 62 25 H 118/63 98 08/08/16 22:16 72 25 H 134/68 95 08/08/16 22:00 66 25 H 113/57 96 08/08/16 21:45 60 25 H 122/64 97 08/08/16 21:30 62 25 H 122/64 95 08/08/16 21:21 64 25 H 112/61 96 08/08/16 21:15 63 25 H 118/61 96 08/08/16 21:00 65 25 H 118/61 95 08/08/16 20:45 67 25 H 118/61 96 08/08/16 20:37 72 118/61 96 08/08/16 20:31 76 25 H 118/61 08/08/16 20:15 95 H 11 L 150/75 08/08/16 20:00 98.4 F 78 25 H 150/72 98 08/08/16 19:45 85 17 152/70 99 08/08/16 19:30 76 25 H 152/70 97 08/08/16 19:15 68 25 H 150/75 97 08/08/16 19:00 78 25 H 150/75 97 08/08/16 18:45 67 25 H 144/70 98 08/08/16 18:30 70 25 H 144/70 98 08/08/16 18:15 66 25 H 139/77 98 08/08/16 18:00 67 25 H 140/75 97 08/08/16 17:45 69 25 H 139/77 99 08/08/16 17:30 68 26 H 139/77 97 08/08/16 17:15 87 20 148/83 99 08/08/16 17:00 93 H 25 H 148/83 99 08/08/16 16:45 84 25 H 144/75 98 08/08/16 16:43 77 144/75 08/08/16 16:33 82 161/89 99 08/08/16 16:30 80 24 144/75 98 08/08/16 16:15 76 25 H 161/89 98 08/08/16 16:00 98.3 F 84 24 161/89 100 08/08/16 15:45 65 23 121/65 98 08/08/16 15:30 65 18 121/65 98 08/08/16 15:15 69 24 146/77 98 08/08/16 15:01 82 24 146/77 100 08/08/16 14:45 87 24 117/57 99 08/08/16 14:30 80 24 117/57 08/08/16 14:15 70 24 116/63 99 08/08/16 14:00 65 25 H 116/63 100 08/08/16 13:45 64 25 H 118/64 98 08/08/16 13:30 63 25 H 118/64 99 08/08/16 13:15 66 25 H 113/64 98 08/08/16 13:00 63 25 H 113/64 99 08/08/16 12:45 67 25 H 128/63 99 08/08/16 12:30 77 25 H 128/63 99 08/08/16 12:28 90 133/74 100 08/08/16 12:15 94 H 25 H 133/74 96 08/08/16 12:14 89 133/74 08/08/16 12:00 98.5 F 93 H 26 H 133/74 97 08/08/16 11:45 90 25 H 105/59 97 08/08/16 11:30 71 25 H 105/59 97 08/08/16 11:15 67 23 114/63 97 08/08/16 11:00 66 25 H 114/63 95 08/08/16 10:45 70 25 H 124/68 98 08/08/16 10:30 68 25 H 124/68 99 08/08/16 10:15 77 25 H 131/72 97 08/08/16 10:00 78 25 H 25 H 131/72 97 08/08/16 09:45 79 25 H 136/80 97 08/08/16 09:30 81 25 H 136/80 98 08/08/16 09:15 76 25 H 151/80 98 08/08/16 09:04 90 151/80 99 08/08/16 09:00 82 25 H 151/80 99 08/08/16 08:45 87 15 133/73 98 08/08/16 08:30 80 24 133/73 99 08/08/16 08:15 65 25 H 114/66 99 08/08/16 08:00 99.1 F 63 25 H 114/66 08/08/16 07:45 58 L 26 H 110/68 99 08/08/16 07:30 60 25 H 109/67 98 - Physical Examination General: Other (intubated on the vent) HEENT: Positive: PERRL, Normocephaly Neck: Positive: neck supple Cardiac: Positive: Reg Rate and Rhythm Lungs: Positive: clear to auscultation Neuro: Positive: Grossly Intact, Other (unresponsive on the vent) Abdomen: Positive: Unremarkable, Soft Skin: Positive: Clear Extremities: Present: normal. Absent: edema - Labs and Meds CBC 08/09/16 Range/Units 06:20 WBC 7.5 (4.5-11.0) K/mm3 RBC 3.97 (3.65-5.03) M/mm3 Hgb 8.3 L (10.1-14.3) gm/dl Hct 27.7 L (30.3-42.9) % Plt Count 127 L (140-440) K/mm3 Lymph # 0.4 L (1.2-5.4) K/mm3 [place] # 0.4 (0.0-0.8) K/mm3 Eos # 0.0 (0.0-0.4) K/mm3 Baso # 0.1 (0.0-0.1) K/mm3 Comprehensive Metabolic Panel 08/09/16 Range/Units 06:20 Sodium 143 (137-145) mmol/L Potassium 4.0 (3.6-5.0) mmol/L Chloride 107.9 H (98-107) mmol/L Carbon Dioxide 23 (22-30) mmol/L BUN 13 (7-17) mg/dL Creatinine 0.3 L (0.7-1.2) mg/dL Glucose 140 H (65-100) mg/dL Calcium 8.2 L (8.4-10.2) mg/dL - Imaging and Cardiology EKG: image reviewed - Allied health notes Allied health notes reviewed: RT
[2016-08-09] MEDS: LOPRESSOR PO SCH ×3 (07:43→11:50)
--- NOTE | 2016-08-09 10:51 | Progress Note ---
Assessment and Plan - Patient Problems (1) Acute respiratory failure Current Visit: Yes Status: Acute Qualifiers: Respiratory failure complication: hypoxia Qualified Code(s): J96.01 - Acute respiratory failure with hypoxia Plan to address problem: Continue on mechanical ventilatory support VAP and critical care bundles addressed bundle Aspiration precautions, HOB>40 Extremely agitated- on seroquel with some improvement with agitation. Discontinue propofol infusion use prn haloperidol On fentanyl Agitation is precluding SAT/SBT at this time Harley catheter in this critically ill patient Tube feedings for nutritional support VTE prophylaxis- Heparin Stress ulcer prophylaxis- Pantoprazole (2) COPD exacerbation Current Visit: No Status: Acute Plan to address problem: Continue with mechanical ventilatory support Bronchodilators Steroids Monitor airway pressures (3) Aspiration pneumonia Current Visit: Yes Status: Acute Qualifiers: Aspiration pneumonia type: A Laterality: L Lung location: L Plan to address problem: Antibiotics Aspiration precautions (4) Tobacco abuse Current Visit: No Status: Chronic Plan to address problem: Nicotine withdrawal precautions Nicotine patch Smoking cessation counselling closer to discharge (5) Overdose Current Visit: Yes Status: Acute Qualifiers: Encounter type: E Injury intent: I Plan to address problem: Continue to monitor in ICU. Will need psychiatry consultation after extubation. Subjective Date of service: 08/09/16 Principal diagnosis: Acute hypoxemic resopiratory faillure on MVS Interval history: Remains intubated. Agitation is better. Remains on fentanyl infusion, propofol was re-instituted overnight for agitation. No acute overnight events otherwise. Seen and examined. Vitals,labs, medications, chart reviewed. Improving gas exchange Discussed in interdisciplinary ICU rounds The high probability of a clinically significant, sudden or life threatening deterioration of the [neurologic, CV, respiratory] system(s) required my full and direct attention, intervention and personal management. The aggregate critical care time was [31] minutes. This time is in addition to time spent performing reported procedures but includes the following: [x] Data Review and interpretation [x] Patient assessment and monitoring of vital signs [x] Documentation [x] Medication orders and management Objective Vital Signs - 12hr 08/08/16 08/08/16 08/08/16 23:00 23:15 23:31 Temperature Pulse Rate 59 L 58 L 89 Respiratory 25 H 25 H 12 Rate Blood Pressure 124/68 118/63 154/92 O2 Sat by Pulse 97 97 91 Oximetry 08/08/16 08/08/16 08/09/16 23:45 23:59 00:00 Temperature 98.2 F Pulse Rate 66 63 61 Respiratory 25 H 17 Rate Blood Pressure 124/68 154/92 140/71 O2 Sat by Pulse 97 97 95 Oximetry 08/09/16 08/09/16 08/09/16 00:15 00:30 00:45 Temperature Pulse Rate 72 66 59 L Respiratory 24 25 H 18 Rate Blood Pressure 140/71 128/68 128/68 O2 Sat by Pulse 96 96 95 Oximetry 08/09/16 08/09/16 08/09/16 01:00 01:15 01:30 Temperature Pulse Rate 76 61 59 L Respiratory 25 H 24 25 H Rate Blood Pressure 134/68 134/68 139/69 O2 Sat by Pulse 92 94 94 Oximetry 08/09/16 08/09/16 08/09/16 01:45 02:00 02:15 Temperature Pulse Rate 61 62 65 Respiratory 24 24 24 Rate Blood Pressure 139/69 136/68 136/68 O2 Sat by Pulse 95 94 96 Oximetry 08/09/16 08/09/16 08/09/16 02:31 02:45 03:01 Temperature Pulse Rate 99 H 65 63 Respiratory 24 24 25 H Rate Blood Pressure 165/92 165/92 135/65 O2 Sat by Pulse 98 96 96 Oximetry 08/09/16 08/09/16 08/09/16 03:15 03:30 03:45 Temperature Pulse Rate 63 64 73 Respiratory 25 H 25 H 25 H Rate Blood Pressure 135/65 140/73 140/73 O2 Sat by Pulse 95 94 95 Oximetry 08/09/16 08/09/16 08/09/16 04:00 04:15 04:30 Temperature 98.9 F Pulse Rate 72 67 75 Respiratory 25 H 25 H 10 L Rate Blood Pressure 154/85 154/85 163/95 O2 Sat by Pulse 98 97 97 Oximetry 08/09/16 08/09/16 08/09/16 04:45 05:00 05:13 Temperature Pulse Rate 67 69 68 Respiratory 12 11 L Rate Blood Pressure 163/95 156/85 156/85 O2 Sat by Pulse 98 98 97 Oximetry 08/09/16 08/09/16 08/09/16 05:15 05:30 05:45 Temperature Pulse Rate 69 62 65 Respiratory 20 23 15 Rate Blood Pressure 156/85 142/71 142/71 O2 Sat by Pulse 98 96 98 Oximetry 08/09/16 08/09/16 08/09/16 06:01 06:15 06:31 Temperature Pulse Rate 67 75 58 L Respiratory 25 H 25 H 26 H Rate Blood Pressure 116/61 116/61 147/72 O2 Sat by Pulse 96 100 Oximetry 08/09/16 08/09/16 08/09/16 06:45 07:01 07:15 Temperature Pulse Rate 58 L 60 60 Respiratory 25 H 25 H 25 H Rate Blood Pressure 147/72 149/69 149/69 O2 Sat by Pulse 98 97 98 Oximetry 08/09/16 08/09/16 08/09/16 07:30 07:43 07:44 Temperature Pulse Rate 63 61 66 Respiratory 24 Rate Blood Pressure 132/69 140/71 124/68 O2 Sat by Pulse 99 Oximetry 08/09/16 08/09/16 08/09/16 07:45 07:57 08:00 Temperature 98.7 F Pulse Rate 57 L Respiratory 25 H Rate Blood Pressure 132/69 O2 Sat by Pulse 97 98 Oximetry 08/09/16 08/09/16 08/09/16 08:01 08:15 08:30 Temperature Pulse Rate 48 L 47 L 41 L Respiratory 25 H 25 H 24 Rate Blood Pressure 144/61 144/61 146/76 O2 Sat by Pulse 96 97 98 Oximetry 08/09/16 08/09/16 08/09/16 08:45 08:55 09:00 Temperature Pulse Rate 45 L 56 L 56 L Respiratory 19 24 Rate Blood Pressure 146/76 146/76 140/82 O2 Sat by Pulse 96 97 97 Oximetry 08/09/16 08/09/16 08/09/16 09:15 09:31 09:45 Temperature Pulse Rate 56 L 56 L 67 Respiratory 25 H 25 H 25 H Rate Blood Pressure 140/82 138/96 138/96 O2 Sat by Pulse 96 96 97 Oximetry Constitutional: no acute distress, other (edema) Eyes: non-icteric ENT: oropharynx moist Neck: supple, no lymphadenopathy, no JVD Effort: normal Ascultation: Bilateral: diminished breath sounds, rhonchi Cardiovascular: regular rate and rhythm Gastrointestinal: normoactive bowel sounds, soft, non-tender, non-distended Integumentary: normal Extremities: no cyanosis, pink and warm, pulses normal, no ischemia or petechiae , edema Neurologic: non-focal exam, other (intubated, sedated- moves all extremities) Psychiatric: other (unable to assess) CBC and BMP: 08/10/16 06:00 08/10/16 08:30 ABG, PT/INR, D-dimer: ABG POC ABG pH 7.455 (7.35-7.45) H 08/09/16 05:13 POC ABG pCO2 32.9 (35-45) L 08/09/16 05:13 POC ABG pO2 67 (80-105) L 08/09/16 05:13 POC ABG HCO3 23.1 08/09/16 05:13 POC ABG Total CO2 24 08/09/16 05:13 POC ABG O2 Sat 94 08/09/16 05:13 PT/INR, D-dimer PT 15.7 Sec. (12.2-14.9) H 08/05/16 00:06 INR 1.26 (0.87-1.13) H 08/05/16 00:06 Abnormal lab findings: Abnormal Labs 08/05/16 08/05/16 08/05/16 03:41 03:49 03:50 Hgb 8.8 L Hct MCV MCH MCHC RDW Plt Count Lymph % (Auto) Lymph # Seg Neutrophils % Seg Neuts % (Manual) Lymphocytes % (Manual) Nucleated RBC % Seg Neutrophils # Man Lymphocytes # (Manual) POC ABG pH 7.269 L 7.269 L POC ABG pCO2 POC ABG pO2 32 L Sodium Potassium Chloride Carbon Dioxide Creatinine Glucose POC Glucose Calcium Total Protein Albumin Urine WBC (Auto) 08/05/16 08/05/16 08/05/16 07:15 10:16 14:35 Hgb 9.0 L 9.1 L 9.5 L Hct MCV MCH MCHC RDW Plt Count Lymph % (Auto) Lymph # Seg Neutrophils % Seg Neuts % (Manual) Lymphocytes % (Manual) Nucleated RBC % Seg Neutrophils # Man Lymphocytes # (Manual) POC ABG pH POC ABG pCO2 POC ABG pO2 Sodium Potassium Chloride Carbon Dioxide Creatinine Glucose POC Glucose Calcium Total Protein Albumin Urine WBC (Auto) 08/05/16 08/06/16 08/06/16 15:30 04:00 04:45 Hgb Hct MCV MCH MCHC RDW Plt Count Lymph % (Auto) Lymph # Seg Neutrophils % Seg Neuts % (Manual) Lymphocytes % (Manual) Nucleated RBC % Seg Neutrophils # Man Lymphocytes # (Manual) POC ABG pH POC ABG pCO2 POC ABG pO2 69 L Sodium 150 H Potassium 3.2 L Chloride 116.6 H Carbon Dioxide 21 L Creatinine 0.4 L D Glucose 107 H POC Glucose Calcium 7.9 L Total Protein 5.1 L D Albumin 2.5 L Urine WBC (Auto) 9.0 H 08/07/16 08/07/16 08/07/16 04:00 04:00 04:45 Hgb 7.6 L Hct 26.3 L D MCV 71 L MCH 21 L MCHC 29 L RDW 21.1 H Plt Count Lymph % (Auto) 5.8 L Lymph # 0.5 L Seg Neutrophils % 87.7 H Seg Neuts % (Manual) Lymphocytes % (Manual) Nucleated RBC % Seg Neutrophils # Man Lymphocytes # (Manual) POC ABG pH POC ABG pCO2 POC ABG pO2 58 L Sodium 148 H Potassium 3.3 L Chloride 114.1 H Carbon Dioxide Creatinine 0.4 L Glucose 112 H POC Glucose Calcium 8.3 L Total Protein Albumin Urine WBC (Auto) 08/07/16 08/07/16 08/07/16 12:23 15:15 17:59 Hgb 7.7 L Hct 26.7 L MCV 70 L MCH 20 L MCHC 29 L RDW 21.0 H Plt Count 137 L Lymph % (Auto) Lymph # Seg Neutrophils % Seg Neuts % (Manual) Lymphocytes % (Manual) Nucleated RBC % Seg Neutrophils # Man Lymphocytes # (Manual) POC ABG pH POC ABG pCO2 POC ABG pO2 Sodium Potassium Chloride Carbon Dioxide Creatinine Glucose POC Glucose 106 H 141 H Calcium Total Protein Albumin Urine WBC (Auto) 08/07/16 08/08/16 08/08/16 23:25 05:28 05:52 Hgb Hct MCV MCH MCHC RDW Plt Count Lymph % (Auto) Lymph # Seg Neutrophils % Seg Neuts % (Manual) Lymphocytes % (Manual) Nucleated RBC % Seg Neutrophils # Man Lymphocytes # (Manual) POC ABG pH POC ABG pCO2 POC ABG pO2 73 L Sodium Potassium Chloride Carbon Dioxide Creatinine Glucose POC Glucose 127 H 131 H Calcium Total Protein Albumin Urine WBC (Auto) 08/08/16 08/08/16 08/08/16 06:00 06:00 12:38 Hgb 7.8 L Hct 27.0 L MCV 71 L MCH 20 L MCHC 29 L RDW 20.5 H Plt Count Lymph % (Auto) Lymph # Seg Neutrophils % Seg Neuts % (Manual) 95.0 H Lymphocytes % (Manual) 1.0 L Nucleated RBC % 1.0 H Seg Neutrophils # Man 8.6 H Lymphocytes # (Manual) 0.1 L POC ABG pH POC ABG pCO2 POC ABG pO2 Sodium 147 H Potassium Chloride 113.7 H Carbon Dioxide Creatinine 0.3 L Glucose 138 H POC Glucose 146 H Calcium 8.0 L Total Protein Albumin Urine WBC (Auto) 08/08/16 08/08/16 08/09/16 17:48 23:50 05:13 Hgb Hct MCV MCH MCHC RDW Plt Count Lymph % (Auto) Lymph # Seg Neutrophils % Seg Neuts % (Manual) Lymphocytes % (Manual) Nucleated RBC % Seg Neutrophils # Man Lymphocytes # (Manual) POC ABG pH 7.455 H POC ABG pCO2 32.9 L POC ABG pO2 67 L Sodium Potassium Chloride Carbon Dioxide Creatinine Glucose POC Glucose 143 H 119 H Calcium Total Protein Albumin Urine WBC (Auto) 08/09/16 08/09/16 08/09/16 05:57 06:20 06:20 Hgb 8.3 L Hct 27.7 L MCV 70 L MCH 21 L MCHC RDW 20.2 H Plt Count 127 L Lymph % (Auto) 5.8 L Lymph # 0.4 L Seg Neutrophils % 87.5 H Seg Neuts % (Manual) Lymphocytes % (Manual) Nucleated RBC % Seg Neutrophils # Man Lymphocytes # (Manual) POC ABG pH POC ABG pCO2 POC ABG pO2 Sodium Potassium Chloride 107.9 H Carbon Dioxide Creatinine 0.3 L Glucose 140 H POC Glucose 159 H Calcium 8.2 L Total Protein Albumin Urine WBC (Auto) Chest x-ray: report reviewed Allied health notes reviewed: RT Critical care time in (mins) excluding proc time.: 31 Critical care attestation.: If time is entered above; I have spent that time in minutes in the direct care of this critically ill patient, excluding procedure time.
[2016-08-09] MEDS: HABITROL TD SCH (11:34)
[2016-08-09] MEDS: VANCOMYCIN 1,750 MG in NACL 0.9% 500 ML 500 ML IV SCH (11:46)
[2016-08-09] MEDS: PLAVIX PO SCH (11:50)
[2016-08-09] MEDS: HALDOL IV PRN (11:50)
[2016-08-09] MEDS: PROTONIX FEEDTUBE SCH (11:51)
[2016-08-09] MEDS: HALFPRIN EC PO SCH (11:51)
[2016-08-09] MEDS ORDERED: LASIX IV ONE (12:00)
--- NOTE | 2016-08-09 17:40 | Progress Note ---
Assessment and Plan Assessment and plan: Acute respiratory failure on mechanical ventilation > 96hrs Drug overdose SIRS with hypotension COPD CHF CAD Cardiomyopathy - Patient is sedated and on mechanical ventilation - On IV antibiotics and IV fluids - Blood, urine and tracheal aspirate cultures are negative - Cardiology and pulmonary consult appreciated - GI was consulted for coffee ground emesis at the time of intubation in the ED , currently patient has biliousfluid drainage, so patient doesn't have any active bleeding. Patient is mildly anemic and GI evaluate her once she is extubated for possible EGD. FOBT is positive. - Patient is off pressors Prophylaxis - Mechanical because of coffee-ground emesis - If no further bleeding will start her on Lovenox Prognosis - guarded Disposition - Continue ICU care. The high probability of a clinically significant, sudden or life threatening deterioration of the [neurologic, CV] system(s) required my full and direct attention, intervention and personal management. The aggregate critical care time was [31] minutes. This time is in addition to time spent performing reported procedures but includes the following: [x] Data Review and interpretation [x] Patient assessment and monitoring of vital signs [x] Documentation [x] Medication orders and management History Interval history: Patient was seen and evaluated this morning, patient is sedated on mechanical ventilation. She become agitated when she is off sedation. Hospitalist Physical - Physical exam Narrative exam: Patient is sedated and mechanically ventilated The patient appeared well nourished and normally developed. Vital signs as documented. Head exam is unremarkable. No scleral icterus . Neck is without jugular venous distension, thyromegaly, or carotid bruits. Lungs are clear to auscultation. Cardiac exam reveals regular rate and Rhythm. First and second heart sounds normal. No murmurs, rubs or gallops. Abdominal exam reveals normal bowel sounds, no masses, no organomegaly and no aortic enlargement. Extremities are nonedematous and both femoral and pedal pulses are normal. 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 - Constitutional Vitals: Temp Pulse Resp BP Pulse Ox 99.2 F 86 25 H 152/78 98 08/09/16 16:00 08/09/16 16:18 08/09/16 16:18 08/09/16 16:18 08/09/16 16:18 General appearance: Present: other (patient is unresponsive on the vent) Results - Labs CBC & Chem 7: 08/09/16 06:20 08/09/16 06:20 Labs: Laboratory Last Values WBC 7.5 K/mm3 (4.5-11.0) 08/09/16 06:20 RBC 3.97 M/mm3 (3.65-5.03) 08/09/16 06:20 Hgb 8.3 gm/dl (10.1-14.3) L 08/09/16 06:20 Hct 27.7 % (30.3-42.9) L 08/09/16 06:20 MCV 70 fl (79-97) L 08/09/16 06:20 MCH 21 pg (28-32) L 08/09/16 06:20 MCHC 30 % (30-34) 08/09/16 06:20 RDW 20.2 % (13.2-15.2) H 08/09/16 06:20 Plt Count 127 K/mm3 (140-440) L 08/09/16 06:20 Lymph % (Auto) 5.8 % (13.4-35.0) L 08/09/16 06:20 [facility] % (Auto) 5.8 % (0.0-7.3) 08/09/16 06:20 Eos % (Auto) 0.0 % (0.0-4.3) 08/09/16 06:20 Baso % (Auto) 0.9 % (0.0-1.8) 08/09/16 06:20 Lymph # 0.4 K/mm3 (1.2-5.4) L 08/09/16 06:20 [facility] # 0.4 K/mm3 (0.0-0.8) 08/09/16 06:20 Eos # 0.0 K/mm3 (0.0-0.4) 08/09/16 06:20 Baso # 0.1 K/mm3 (0.0-0.1) 08/09/16 06:20 Add Manual Diff Complete 08/08/16 06:00 Total Counted 100 08/08/16 06:00 Seg Neutrophils % 87.5 % (40.0-70.0) H 08/09/16 06:20 Seg Neuts % (Manual) 95.0 % (40.0-70.0) H 08/08/16 06:00 Band Neutrophils % 0 % 08/08/16 06:00 Lymphocytes % (Manual) 1.0 % (13.4-35.0) L 08/08/16 06:00 Reactive Lymphs % (Man) 0 % 08/08/16 06:00 Monocytes % (Manual) 4.0 % (0.0-7.3) 08/08/16 06:00 Eosinophils % (Manual) 0 % (0.0-4.3) 08/08/16 06:00 Basophils % (Manual) 0 % (0.0-1.8) 08/08/16 06:00 Metamyelocytes % 0 % 08/08/16 06:00 Myelocytes % 0 % 08/08/16 06:00 Promyelocytes % 0 % 08/08/16 06:00 Blast Cells % 0 % 08/08/16 06:00 Nucleated RBC % 1.0 % (0.0-0.9) H 08/08/16 06:00 Seg Neutrophils # 6.6 K/mm3 (1.8-7.7) 08/09/16 06:20 Seg Neutrophils # Man 8.6 K/mm3 (1.8-7.7) H 08/08/16 06:00 Band Neutrophils # 0.0 K/mm3 08/08/16 06:00 Lymphocytes # (Manual) 0.1 K/mm3 (1.2-5.4) L 08/08/16 06:00 Abs React Lymphs (Man) 0.0 K/mm3 08/08/16 06:00 Monocytes # (Manual) 0.4 K/mm3 (0.0-0.8) 08/08/16 06:00 Eosinophils # (Manual) 0.0 K/mm3 (0.0-0.4) 08/08/16 06:00 Basophils # (Manual) 0.0 K/mm3 (0.0-0.1) 08/08/16 06:00 Metamyelocytes # 0.0 K/mm3 08/08/16 06:00 Myelocytes # 0.0 K/mm3 08/08/16 06:00 Promyelocytes # 0.0 K/mm3 08/08/16 06:00 Blast Cells # 0.0 K/mm3 08/08/16 06:00 WBC Morphology Not Reportable 08/08/16 06:00 Hypersegmented Neuts Not Reportable 08/08/16 06:00 Hyposegmented Neuts Not Reportable 08/08/16 06:00 Hypogranular Neuts Not Reportable 08/08/16 06:00 Smudge Cells Not Reportable 08/08/16 06:00 Toxic Granulation Not Reportable 08/08/16 06:00 Toxic Vacuolation Not Reportable 08/08/16 06:00 Dohle Bodies Not Reportable 08/08/16 06:00 Pelger-Huet Anomaly Not Reportable 08/08/16 06:00 Neha Rods Not Reportable 08/08/16 06:00 Platelet Estimate Appears normal 08/08/16 06:00 Clumped Platelets Not Reportable 08/08/16 06:00 Plt Clumps, EDTA Not Reportable 08/08/16 06:00 Large Platelets Not Reportable 08/08/16 06:00 Giant Platelets Not Reportable 08/08/16 06:00 Platelet Satelliting Not Reportable 08/08/16 06:00 Plt Morphology Comment Not Reportable 08/08/16 06:00 RBC Morphology Not Reportable 08/08/16 06:00 Dimorphic RBCs Not Reportable 08/08/16 06:00 Polychromasia Not Reportable 08/08/16 06:00 Hypochromasia 2+ 08/08/16 06:00 Poikilocytosis Not Reportable 08/08/16 06:00 Anisocytosis 1+ 08/08/16 06:00 Microcytosis Not Reportable 08/08/16 06:00 Macrocytosis Not Reportable 08/08/16 06:00 Spherocytes Not Reportable 08/08/16 06:00 Pappenheimer Bodies Not Reportable 08/08/16 06:00 Sickle Cells Not Reportable 08/08/16 06:00 Target Cells Not Reportable 08/08/16 06:00 Tear Drop Cells Not Reportable 08/08/16 06:00 Ovalocytes Not Reportable 08/08/16 06:00 Helmet Cells Not Reportable 08/08/16 06:00 [place] Bodies Not Reportable 08/08/16 06:00 [place] Rings Not Reportable 08/08/16 06:00 [place] Cells Not Reportable 08/08/16 06:00 Bite Cells Not Reportable 08/08/16 06:00 Crenated Cell Not Reportable 08/08/16 06:00 Elliptocytes Not Reportable 08/08/16 06:00 Acanthocytes (Spur) Not Reportable 08/08/16 06:00 Rouleaux Not Reportable 08/08/16 06:00 Hemoglobin C Crystals Not Reportable 08/08/16 06:00 Schistocytes Not Reportable 08/08/16 06:00 Malaria parasites Not Reportable 08/08/16 06:00 Hernan Bodies Not Reportable 08/08/16 06:00 Hem Pathologist Commnt No 08/08/16 06:00 PT 15.7 Sec. (12.2-14.9) H 08/05/16 00:06 INR 1.26 (0.87-1.13) H 08/05/16 00:06 APTT 40.4 Sec. (24.2-36.6) H 08/05/16 00:06 POC ABG pH 7.455 (7.35-7.45) H 08/09/16 05:13 POC ABG pCO2 32.9 (35-45) L 08/09/16 05:13 POC ABG pO2 67 (80-105) L 08/09/16 05:13 POC ABG HCO3 23.1 08/09/16 05:13 POC ABG Total CO2 24 08/09/16 05:13 POC ABG O2 Sat 94 08/09/16 05:13 POC ABG Base Excess -1 08/09/16 05:13 FiO2 50 % 08/09/16 05:13 Sodium 143 mmol/L (137-145) 08/09/16 06:20 Potassium 4.0 mmol/L (3.6-5.0) 08/09/16 06:20 Chloride 107.9 mmol/L (98-107) H 08/09/16 06:20 Carbon Dioxide 23 mmol/L (22-30) 08/09/16 06:20 Anion Gap 16 mmol/L 08/09/16 06:20 BUN 13 mg/dL (7-17) 08/09/16 06:20 Creatinine 0.3 mg/dL (0.7-1.2) L 08/09/16 06:20 Estimated GFR > 60 ml/min 08/09/16 06:20 BUN/Creatinine Ratio 43.33 % 08/09/16 06:20 Glucose 140 mg/dL (65-100) H 08/09/16 06:20 POC Glucose 156 (70-105) H 08/09/16 12:03 Lactic Acid 1.10 mmol/L (0.7-2.0) 08/05/16 03:49 Calcium 8.2 mg/dL (8.4-10.2) L 08/09/16 06:20 Total Bilirubin 0.30 mg/dL (0.1-1.2) 08/06/16 04:00 AST 17 units/L (5-40) 08/06/16 04:00 ALT 8 units/L (7-56) 08/06/16 04:00 Alkaline Phosphatase 63 units/L (35-129) 08/06/16 04:00 Total Creatine Kinase 76 units/L (30-135) 08/05/16 07:15 CK-MB (CK-2) 2.0 ng/mL (0.0-4.0) 08/05/16 07:15 CK-MB (CK-2) Rel Index 2.6 (0-4) 08/05/16 07:15 Troponin T < 0.010 ng/mL (0.00-0.029) 08/05/16 07:15 Total Protein 5.1 g/dL (6.3-8.2) L D 08/06/16 04:00 Albumin 2.5 g/dL (3.9-5) L 08/06/16 04:00 Albumin/Globulin Ratio 1.0 % 08/06/16 04:00 Urine Color Yellow (Yellow) 08/05/16 15:30 Urine Turbidity Clear (Clear) 08/05/16 15:30 Urine pH 5.0 (5.0-7.0) 08/05/16 15:30 Ur Specific [place] 1.020 (1.003-1.030) 08/05/16 15:30 Urine Protein 30 mg/dl mg/dL (Negative) 08/05/16 15:30 Urine Glucose (UA) Neg mg/dL (Negative) 08/05/16 15:30 Urine Ketones Tr mg/dL (Negative) 08/05/16 15:30 Urine Blood Mod (Negative) 08/05/16 15:30 Urine Nitrite Neg (Negative) 08/05/16 15:30 Urine Bilirubin Neg (Negative) 08/05/16 15:30 Urine Urobilinogen < 2.0 mg/dL (<2.0) 08/05/16 15:30 Ur Leukocyte Esterase Tr (Negative) 08/05/16 15:30 Urine WBC (Auto) 9.0 /HPF (0.0-6.0) H 08/05/16 15:30 Urine RBC (Auto) 1.0 /HPF (0.0-6.0) 08/05/16 15:30 U Epithel Cells (Auto) < 1.0 /HPF (0-13.0) 08/05/16 15:30 Urine Yeast (Budding) 1+ /HPF 08/05/16 15:30 Vancomycin Trough 10.2 ug/mL (5.0-20.0) 08/07/16 15:15 Salicylates 3.5 mg/dL (2.8-20.0) 08/05/16 03:49 Urine Opiates Screen Presumptive positive 08/05/16 01:06 Urine Methadone Screen Presumptive negative 08/05/16 01:06 Acetaminophen < 15.0 ug/mL (10.0-30.0) 08/05/16 00:06 Ur Barbiturates Screen Presumptive negative 08/05/16 01:06 Ur Phencyclidine Scrn Presumptive negative 08/05/16 01:06 Ur Amphetamines Screen Presumptive negative 08/05/16 01:06 U Benzodiazepines Scrn Presumptive negative 08/05/16 01:06 Urine Cocaine Screen Presumptive negative 08/05/16 01:06 U Marijuana (THC) Screen Presumptive negative 08/05/16 01:06 Drugs of Abuse Note Disclamer 08/05/16 01:06 Plasma/Serum Alcohol < 0.01 gm% (0-0.07) 08/05/16 00:06 Blood Type O POSITIVE 08/05/16 00:06 JACOB Antibody Screen Negative 08/05/16 00:06
[2016-08-10 04:56] LABS: ISTAT Base Excess 7; ISTAT HCO3 30.5; ISTAT PCO2 43.5 (35-45); ISTAT PH 7.454 (7.35-7.45); ISTAT PO2 72 (80-105); ISTAT SO2 95; ISTAT TCO2 32
[2016-08-10] MEDS: fentaNYL DRIP Premix 2,000 MCG/100 ML BAG IV SCH (05:36)
[2016-08-10] MEDS: ZOSYN/NS 4.5GM/100ML 4.5 GM/100 ML VIAL IV SCH ×5 (05:56→23:05)
[2016-08-10] MEDS: LOPRESSOR PO SCH ×6 (06:19→23:03)
[2016-08-10] MEDS ORDERED: LASIX IV ONE (09:05)
[2016-08-10 09:06] LABS: Anion Gap 17 mmol/L; Blood Urea Nitrogen 15 mg/dL (7-17); Calcium 8.6 mg/dL (8.4-10.2); Carbon Dioxide 28 mmol/L (22-30); Chloride 104.4 mmol/L (98-107); Glucose 135 mg/dL (65-100); Potassium 3.9 mmol/L (3.6-5.0); Sodium 145 mmol/L (137-145)
--- NOTE | 2016-08-10 09:17 | Progress Note ---
Assessment and Plan - Patient Problems (1) Acute respiratory failure Current Visit: Yes Status: Acute Qualifiers: Respiratory failure complication: hypoxia Qualified Code(s): J96.01 - Acute respiratory failure with hypoxia Plan to address problem: Continue on mechanical ventilatory support VAP and critical care bundles addressed bundle Aspiration precautions, HOB>40 Agitation much improved On fentanyl SBT today, get weaning parameters, if acceptable plan to liberate from the ventilator Furosemide to optimize volume status, monitor renal function and electrolytes Harley catheter in this critically ill patient Tube feedings for nutritional support VTE prophylaxis- Heparin Stress ulcer prophylaxis- Pantoprazole (2) COPD exacerbation Current Visit: No Status: Acute Plan to address problem: Continue with mechanical ventilatory support Bronchodilators Steroids Antibiotics Monitor airway pressures (3) Aspiration pneumonia Current Visit: Yes Status: Acute Qualifiers: Aspiration pneumonia type: A Laterality: L Lung location: L Plan to address problem: Antibiotics to complete course Aspiration precautions (4) Tobacco abuse Current Visit: No Status: Chronic Plan to address problem: Nicotine withdrawal precautions Nicotine patch Smoking cessation counselling closer to discharge (5) Overdose Current Visit: Yes Status: Acute Qualifiers: Encounter type: E Injury intent: I Plan to address problem: Continue to monitor in ICU. Will need psychiatry consultation after extubation. Subjective Date of service: 08/10/16 Principal diagnosis: Acute hypoxemic resopiratory faillure on MVS Interval history: Remains intubated. Calm, obeying simple commands, no agitation No acute overnight events otherwise. Seen and examined. Vitals,labs, medications, chart reviewed. Improving gas exchange Discussed in interdisciplinary ICU rounds The high probability of a clinically significant, sudden or life threatening deterioration of the [neurologic, CV, respiratory] system(s) required my full and direct attention, intervention and personal management. The aggregate critical care time was [31] minutes. This time is in addition to time spent performing reported procedures but includes the following: [x] Data Review and interpretation [x] Patient assessment and monitoring of vital signs [x] Documentation [x] Medication orders and management Objective - Exam Narrative Exam: Patient is on mechanically ventilated- fentanyl infusion The patient appeared well nourished and normally developed. Vital signs as documented. Head exam is unremarkable. No scleral icterus . Neck is without jugular venous distension, thyromegaly, or carotid bruits. Lungs are clear to auscultation. Cardiac exam reveals regular rate and Rhythm. First and second heart sounds normal. No murmurs, rubs or gallops. Abdominal exam reveals normal bowel sounds, no masses, no organomegaly and no aortic enlargement. 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 Non-focal neurology Vital Signs - 12hr 08/09/16 08/09/16 08/09/16 21:30 21:45 22:00 Temperature Pulse Rate 105 H 92 H 91 H Respiratory 25 H 25 H 25 H Rate Blood Pressure 172/98 167/95 188/92 O2 Sat by Pulse 95 98 94 Oximetry 08/09/16 08/09/16 08/09/16 22:15 22:31 22:45 Temperature Pulse Rate 100 H 152 H 124 H Respiratory 22 22 25 H Rate Blood Pressure 172/98 172/98 183/104 O2 Sat by Pulse 96 95 97 Oximetry 08/09/16 08/09/16 08/09/16 23:01 23:15 23:30 Temperature Pulse Rate 121 H 100 H 110 H Respiratory 25 H 25 H 25 H Rate Blood Pressure 155/91 188/109 133/84 O2 Sat by Pulse 92 95 94 Oximetry 08/09/16 08/09/16 08/10/16 23:45 23:54 00:00 Temperature 99.2 F Pulse Rate 113 H 110 H 99 H Respiratory 25 H 25 H Rate Blood Pressure 155/91 133/84 125/86 O2 Sat by Pulse 94 95 Oximetry 08/10/16 08/10/16 08/10/16 00:15 00:30 00:45 Temperature Pulse Rate 124 H 99 H 87 Respiratory 22 25 H 25 H Rate Blood Pressure 133/84 130/95 130/95 O2 Sat by Pulse 96 98 96 Oximetry 08/10/16 08/10/16 08/10/16 01:00 01:15 01:30 Temperature Pulse Rate 79 81 79 Respiratory 25 H 25 H 25 H Rate Blood Pressure 131/79 131/79 131/69 O2 Sat by Pulse 93 96 94 Oximetry 08/10/16 08/10/16 08/10/16 01:45 02:00 02:15 Temperature Pulse Rate 80 79 92 H Respiratory 25 H 25 H 25 H Rate Blood Pressure 131/69 128/75 128/75 O2 Sat by Pulse 96 94 96 Oximetry 08/10/16 08/10/16 08/10/16 02:30 02:45 03:00 Temperature Pulse Rate 89 89 87 Respiratory 25 H 25 H 25 H Rate Blood Pressure 141/81 141/81 134/79 O2 Sat by Pulse 93 96 94 Oximetry 08/10/16 08/10/16 08/10/16 03:15 03:31 03:45 Temperature Pulse Rate 89 93 H 95 H Respiratory 25 H 25 H 25 H Rate Blood Pressure 134/79 155/97 155/97 O2 Sat by Pulse 96 95 97 Oximetry 08/10/16 08/10/16 08/10/16 03:46 04:00 04:15 Temperature 98.2 F Pulse Rate 98 H 92 H 94 H Respiratory 16 25 H Rate Blood Pressure 155/97 164/82 164/82 O2 Sat by Pulse 99 96 96 Oximetry 08/10/16 08/10/16 08/10/16 04:16 04:30 04:45 Temperature 99.5 F Pulse Rate 86 103 H Respiratory 21 26 H Rate Blood Pressure 138/75 138/75 O2 Sat by Pulse 95 97 Oximetry 08/10/16 08/10/16 08/10/16 05:00 05:15 05:30 Temperature Pulse Rate 96 H 96 H 102 H Respiratory 25 H 21 24 Rate Blood Pressure 131/76 131/76 170/98 O2 Sat by Pulse 94 96 95 Oximetry 08/10/16 08/10/16 08/10/16 05:45 06:00 06:15 Temperature Pulse Rate 96 H 95 H 95 H Respiratory 25 H 25 H 17 Rate Blood Pressure 170/98 155/84 155/84 O2 Sat by Pulse 97 95 97 Oximetry 08/10/16 08/10/16 08/10/16 06:19 06:30 06:45 Temperature Pulse Rate 98 H 94 H 89 Respiratory 25 H 21 Rate Blood Pressure 155/84 147/82 147/82 O2 Sat by Pulse 95 97 Oximetry 08/10/16 08/10/16 08/10/16 07:00 07:15 07:30 Temperature Pulse Rate 80 77 105 H Respiratory 20 25 H 25 H Rate Blood Pressure 141/81 141/81 163/92 O2 Sat by Pulse 95 97 95 Oximetry 08/10/16 07:45 Temperature Pulse Rate 84 Respiratory 25 H Rate Blood Pressure 163/92 O2 Sat by Pulse 97 Oximetry Constitutional: no acute distress Eyes: non-icteric ENT: oropharynx moist Neck: supple, no lymphadenopathy, no JVD Effort: normal Ascultation: Bilateral: diminished breath sounds, rhonchi Cardiovascular: regular rate and rhythm Gastrointestinal: normoactive bowel sounds, soft, non-tender, non-distended Integumentary: normal Extremities: no cyanosis, no edema, pink and warm, pulses normal, no ischemia or petechiae Neurologic: other (intubated, sedated) CBC and BMP: 08/10/16 06:00 08/10/16 08:30 ABG, PT/INR, D-dimer: ABG POC ABG pH 7.454 (7.35-7.45) H 08/10/16 04:46 POC ABG pCO2 43.5 (35-45) 08/10/16 04:46 POC ABG pO2 72 (80-105) L 08/10/16 04:46 POC ABG HCO3 30.5 08/10/16 04:46 POC ABG Total CO2 32 08/10/16 04:46 POC ABG O2 Sat 95 08/10/16 04:46 PT/INR, D-dimer PT 15.7 Sec. (12.2-14.9) H 08/05/16 00:06 INR 1.26 (0.87-1.13) H 08/05/16 00:06 Abnormal lab findings: Abnormal Labs 08/05/16 08/05/16 08/05/16 03:41 03:49 03:50 Hgb 8.8 L Hct MCV MCH MCHC RDW Plt Count Lymph % (Auto) Lymph # Seg Neutrophils % Seg Neuts % (Manual) Lymphocytes % (Manual) Nucleated RBC % Seg Neutrophils # Seg Neutrophils # Man Lymphocytes # (Manual) POC ABG pH 7.269 L 7.269 L POC ABG pCO2 POC ABG pO2 32 L Sodium Potassium Chloride Carbon Dioxide Creatinine Glucose POC Glucose Calcium Total Protein Albumin Urine WBC (Auto) 08/05/16 08/05/16 08/05/16 07:15 10:16 14:35 Hgb 9.0 L 9.1 L 9.5 L Hct MCV MCH MCHC RDW Plt Count Lymph % (Auto) Lymph # Seg Neutrophils % Seg Neuts % (Manual) Lymphocytes % (Manual) Nucleated RBC % Seg Neutrophils # Seg Neutrophils # Man Lymphocytes # (Manual) POC ABG pH POC ABG pCO2 POC ABG pO2 Sodium Potassium Chloride Carbon Dioxide Creatinine Glucose POC Glucose Calcium Total Protein Albumin Urine WBC (Auto) 08/05/16 08/06/16 08/06/16 15:30 04:00 04:45 Hgb Hct MCV MCH MCHC RDW Plt Count Lymph % (Auto) Lymph # Seg Neutrophils % Seg Neuts % (Manual) Lymphocytes % (Manual) Nucleated RBC % Seg Neutrophils # Seg Neutrophils # Man Lymphocytes # (Manual) POC ABG pH POC ABG pCO2 POC ABG pO2 69 L Sodium 150 H Potassium 3.2 L Chloride 116.6 H Carbon Dioxide 21 L Creatinine 0.4 L D Glucose 107 H POC Glucose Calcium 7.9 L Total Protein 5.1 L D Albumin 2.5 L Urine WBC (Auto) 9.0 H 08/07/16 08/07/16 08/07/16 04:00 04:00 04:45 Hgb 7.6 L Hct 26.3 L D MCV 71 L MCH 21 L MCHC 29 L RDW 21.1 H Plt Count Lymph % (Auto) 5.8 L Lymph # 0.5 L Seg Neutrophils % 87.7 H Seg Neuts % (Manual) Lymphocytes % (Manual) Nucleated RBC % Seg Neutrophils # Seg Neutrophils # Man Lymphocytes # (Manual) POC ABG pH POC ABG pCO2 POC ABG pO2 58 L Sodium 148 H Potassium 3.3 L Chloride 114.1 H Carbon Dioxide Creatinine 0.4 L Glucose 112 H POC Glucose Calcium 8.3 L Total Protein Albumin Urine WBC (Auto) 08/07/16 08/07/16 08/07/16 12:23 15:15 17:59 Hgb 7.7 L Hct 26.7 L MCV 70 L MCH 20 L MCHC 29 L RDW 21.0 H Plt Count 137 L Lymph % (Auto) Lymph # Seg Neutrophils % Seg Neuts % (Manual) Lymphocytes % (Manual) Nucleated RBC % Seg Neutrophils # Seg Neutrophils # Man Lymphocytes # (Manual) POC ABG pH POC ABG pCO2 POC ABG pO2 Sodium Potassium Chloride Carbon Dioxide Creatinine Glucose POC Glucose 106 H 141 H Calcium Total Protein Albumin Urine WBC (Auto) 08/07/16 08/08/16 08/08/16 23:25 05:28 05:52 Hgb Hct MCV MCH MCHC RDW Plt Count Lymph % (Auto) Lymph # Seg Neutrophils % Seg Neuts % (Manual) Lymphocytes % (Manual) Nucleated RBC % Seg Neutrophils # Seg Neutrophils # Man Lymphocytes # (Manual) POC ABG pH POC ABG pCO2 POC ABG pO2 73 L Sodium Potassium Chloride Carbon Dioxide Creatinine Glucose POC Glucose 127 H 131 H Calcium Total Protein Albumin Urine WBC (Auto) 08/08/16 08/08/16 08/08/16 06:00 06:00 12:38 Hgb 7.8 L Hct 27.0 L MCV 71 L MCH 20 L MCHC 29 L RDW 20.5 H Plt Count Lymph % (Auto) Lymph # Seg Neutrophils % Seg Neuts % (Manual) 95.0 H Lymphocytes % (Manual) 1.0 L Nucleated RBC % 1.0 H Seg Neutrophils # Seg Neutrophils # Man 8.6 H Lymphocytes # (Manual) 0.1 L POC ABG pH POC ABG pCO2 POC ABG pO2 Sodium 147 H Potassium Chloride 113.7 H Carbon Dioxide Creatinine 0.3 L Glucose 138 H POC Glucose 146 H Calcium 8.0 L Total Protein Albumin Urine WBC (Auto) 08/08/16 08/08/16 08/09/16 17:48 23:50 05:13 Hgb Hct MCV MCH MCHC RDW Plt Count Lymph % (Auto) Lymph # Seg Neutrophils % Seg Neuts % (Manual) Lymphocytes % (Manual) Nucleated RBC % Seg Neutrophils # Seg Neutrophils # Man Lymphocytes # (Manual) POC ABG pH 7.455 H POC ABG pCO2 32.9 L POC ABG pO2 67 L Sodium Potassium Chloride Carbon Dioxide Creatinine Glucose POC Glucose 143 H 119 H Calcium Total Protein Albumin Urine WBC (Auto) 08/09/16 08/09/16 08/09/16 05:57 06:20 06:20 Hgb 8.3 L Hct 27.7 L MCV 70 L MCH 21 L MCHC RDW 20.2 H Plt Count 127 L Lymph % (Auto) 5.8 L Lymph # 0.4 L Seg Neutrophils % 87.5 H Seg Neuts % (Manual) Lymphocytes % (Manual) Nucleated RBC % Seg Neutrophils # Seg Neutrophils # Man Lymphocytes # (Manual) POC ABG pH POC ABG pCO2 POC ABG pO2 Sodium Potassium Chloride 107.9 H Carbon Dioxide Creatinine 0.3 L Glucose 140 H POC Glucose 159 H Calcium 8.2 L Total Protein Albumin Urine WBC (Auto) 08/09/16 08/09/16 08/10/16 12:03 17:47 00:01 Hgb Hct MCV MCH MCHC RDW Plt Count Lymph % (Auto) Lymph # Seg Neutrophils % Seg Neuts % (Manual) Lymphocytes % (Manual) Nucleated RBC % Seg Neutrophils # Seg Neutrophils # Man Lymphocytes # (Manual) POC ABG pH POC ABG pCO2 POC ABG pO2 Sodium Potassium Chloride Carbon Dioxide Creatinine Glucose POC Glucose 156 H 128 H 145 H Calcium Total Protein Albumin Urine WBC (Auto) 08/10/16 08/10/16 08/10/16 04:46 05:32 06:00 Hgb Hct MCV MCH MCHC RDW Plt Count Lymph % (Auto) Lymph # Seg Neutrophils % 88.6 H Seg Neuts % (Manual) Lymphocytes % (Manual) Nucleated RBC % Seg Neutrophils # 10.3 H Seg Neutrophils # Man Lymphocytes # (Manual) POC ABG pH 7.454 H POC ABG pCO2 POC ABG pO2 72 L Sodium Potassium Chloride Carbon Dioxide Creatinine Glucose POC Glucose 142 H Calcium Total Protein Albumin Urine WBC (Auto) 08/10/16 08:30 Hgb Hct MCV MCH MCHC RDW Plt Count Lymph % (Auto) Lymph # Seg Neutrophils % Seg Neuts % (Manual) Lymphocytes % (Manual) Nucleated RBC % Seg Neutrophils # Seg Neutrophils # Man Lymphocytes # (Manual) POC ABG pH POC ABG pCO2 POC ABG pO2 Sodium Potassium Chloride Carbon Dioxide Creatinine 0.4 L Glucose 135 H POC Glucose Calcium Total Protein Albumin Urine WBC (Auto) Allied health notes reviewed: RT Critical care time in (mins) excluding proc time.: 30 Critical care attestation.: If time is entered above; I have spent that time in minutes in the direct care of this critically ill patient, excluding procedure time.
[2016-08-10] MEDS ORDERED: PERCOCET 5/325 PO ONE (09:32)
[2016-08-10] MEDS: HALDOL IV PRN (09:35)
[2016-08-10 09:40] LABS: White Blood Count TNR K/mm3 (4.5-11.0)
[2016-08-10 09:41] LABS: Hematocrit TNR % (30.3-42.9); Red Blood Count TNR M/mm3 (3.65-5.03)
[2016-08-10] MEDS: HALFPRIN EC PO SCH (09:42)
[2016-08-10] MEDS: HABITROL TD SCH (09:42)
[2016-08-10] MEDS: PROTONIX FEEDTUBE SCH (09:42)
[2016-08-10] MEDS: PLAVIX PO SCH (09:42)
[2016-08-10 09:43] LABS: Basophils % (Auto) TNR % (0.0-1.8); Eosinophils % (Auto) TNR % (0.0-4.3); Hemoglobin TNR gm/dl (10.1-14.3); Mean Corpuscular HGB Conc TNR % (30-34); Mean Corpuscular Hemoglobin TNR pg (28-32); Mean Corpuscular Volume TNR fl (79-97); Mean Platelet Volume TNR fl (6-12); Platelet Count TNR K/mm3 (140-440); Red Cell Distribution Width TNR % (13.2-15.2)
[2016-08-10 09:47] LABS: Diff Status TNR
--- NOTE | 2016-08-10 09:47 | XRay Report ---
AP CHEST: HISTORY: Followup respiratory failure Lines and support devices remain in good position. Mild improvement in cardiomegaly, pulmonary venous congestion and small left pleural effusion is demonstrated since yesterday's exam. There is partial atelectasis in the left lower lobe, otherwise, the lungs are clear. Spinal fusion and stabilization hardware is noted. IMPRESSION: Improvement in CHF since yesterday's exam.
[2016-08-10 11:00] LABS: Mean Corpuscular HGB Conc 29 % (30-34); Mean Corpuscular Volume 70 fl (79-97); Platelet Count 147 K/mm3 (140-440); Red Blood Count 5.09 M/mm3 (3.65-5.03); White Blood Count 12.2 K/mm3 (4.5-11.0)
[2016-08-10 11:12] LABS: Hematocrit 35.8 % (30.3-42.9); Hemoglobin 10.3 gm/dl (10.1-14.3); Mean Corpuscular Hemoglobin 20 pg (28-32); Red Cell Distribution Width 20.9 % (13.2-15.2)
--- NOTE | 2016-08-10 12:02 | Progress Note ---
Assessment and Plan 1. Altered mental status improving 2. Acute respiratory failure Coreg is still intubated 3. Coronary artery disease status post PCI and stent in LAD unsuccessful PCI 2- 0 chromic occlusion of the RCA 4. Chronic obstructive pulmonary disease 5. Paroxysmal atrial fibrillation currently in sinus rhythm 6. History of substance abuse Plan. Currently stable wean off ventilator continue present cardiac management Subjective Date of service: 08/10/16 Principal diagnosis: Acute hypoxemic resopiratory faillure on MVS Interval history: No complains. Objective Vital Signs Temp Pulse Resp Resp BP Pulse Ox 08/10/16 11:04 114 H 147/92 08/10/16 11:00 114 H 25 H 26 H 131/92 97 08/10/16 10:58 26 H 08/10/16 10:30 115 H 12 147/92 94 08/10/16 10:00 114 H 16 143/95 93 08/10/16 09:30 128 H 21 179/106 94 08/10/16 09:26 124 H 25 H 181/111 98 08/10/16 09:00 126 H 23 181/111 94 08/10/16 08:30 99 H 25 H 156/89 95 08/10/16 08:00 98.8 F 96 H 25 H 159/92 96 08/10/16 07:45 84 25 H 163/92 97 08/10/16 07:30 105 H 25 H 163/92 95 08/10/16 07:15 77 25 H 141/81 97 08/10/16 07:00 80 20 141/81 95 08/10/16 06:45 89 21 147/82 97 08/10/16 06:30 94 H 25 H 147/82 95 08/10/16 06:19 98 H 155/84 08/10/16 06:15 95 H 17 155/84 97 08/10/16 06:00 95 H 25 H 155/84 95 08/10/16 05:45 96 H 25 H 170/98 97 08/10/16 05:30 102 H 24 170/98 95 08/10/16 05:15 96 H 21 131/76 96 08/10/16 05:00 96 H 25 H 131/76 94 08/10/16 04:45 103 H 26 H 138/75 97 08/10/16 04:30 86 21 138/75 95 08/10/16 04:16 99.5 F 06/24/17 04:15 94 H 25 H 164/82 96 08/10/16 04:00 92 H 16 164/82 96 08/10/16 03:46 98.2 F 98 H 155/97 99 08/10/16 03:45 95 H 25 H 155/97 97 08/10/16 03:31 93 H 25 H 155/97 95 08/10/16 03:15 89 25 H 134/79 96 08/10/16 03:00 87 25 H 134/79 94 08/10/16 02:45 89 25 H 141/81 96 08/10/16 02:30 89 25 H 141/81 93 08/10/16 02:15 92 H 25 H 128/75 96 08/10/16 02:00 79 25 H 128/75 94 08/10/16 01:45 80 25 H 131/69 96 08/10/16 01:30 79 25 H 131/69 94 08/10/16 01:15 81 25 H 131/79 96 08/10/16 01:00 79 25 H 131/79 93 08/10/16 00:45 87 25 H 130/95 96 08/10/16 00:30 99 H 25 H 130/95 98 08/10/16 00:15 124 H 22 133/84 96 08/10/16 00:00 99.2 F 99 H 25 H 125/86 08/09/16 23:54 110 H 133/84 95 08/09/16 23:45 113 H 25 H 155/91 94 08/09/16 23:30 110 H 25 H 133/84 94 08/09/16 23:15 100 H 25 H 188/109 95 08/09/16 23:01 121 H 25 H 155/91 92 08/09/16 22:45 124 H 25 H 183/104 97 08/09/16 22:31 152 H 22 172/98 95 08/09/16 22:15 100 H 22 172/98 96 08/09/16 22:00 91 H 25 H 188/92 94 08/09/16 21:45 92 H 25 H 167/95 98 08/09/16 21:30 105 H 25 H 172/98 95 08/09/16 21:15 96 H 25 H 161/92 98 08/09/16 21:00 96 H 21 167/95 96 08/09/16 20:45 103 H 11 L 159/92 97 08/09/16 20:30 89 26 H 161/92 94 08/09/16 20:15 98 H 22 165/84 95 08/09/16 20:08 91 H 159/92 96 08/09/16 20:00 98.6 F 91 H 21 159/92 96 08/09/16 19:45 97 H 22 165/84 94 08/09/16 19:32 102 H 25 H 165/84 95 08/09/16 19:30 107 H 24 165/84 93 08/09/16 19:15 114 H 24 166/91 95 08/09/16 19:00 119 H 26 H 166/91 95 08/09/16 18:45 95 H 26 H 170/92 95 08/09/16 18:31 94 H 25 H 170/92 94 08/09/16 18:15 112 H 14 180/93 98 08/09/16 18:05 128 H 183/101 100 08/09/16 18:00 129 H 22 183/101 98 08/09/16 17:45 117 H 13 169/103 98 08/09/16 17:30 109 H 19 169/103 96 08/09/16 17:15 113 H 14 176/96 98 08/09/16 17:00 115 H 13 176/96 97 08/09/16 16:45 117 H 15 171/96 100 08/09/16 16:30 112 H 15 171/96 98 08/09/16 16:18 86 25 H 152/78 98 08/09/16 16:15 88 25 H 152/78 99 08/09/16 16:00 99.2 F 87 25 H 152/78 98 08/09/16 15:45 94 H 25 H 152/79 97 08/09/16 15:30 91 H 25 H 152/79 97 08/09/16 15:15 93 H 25 H 152/86 98 08/09/16 15:00 96 H 25 H 152/86 97 08/09/16 14:45 102 H 25 H 154/85 98 08/09/16 14:30 117 H 18 164/95 97 08/09/16 14:15 121 H 13 140/92 96 08/09/16 14:00 128 H 19 140/92 96 08/09/16 13:45 116 H 14 159/99 96 08/09/16 13:30 117 H 13 159/99 08/09/16 13:15 113 H 13 152/98 95 08/09/16 13:00 112 H 19 152/98 95 08/09/16 12:45 108 H 12 157/68 96 08/09/16 12:30 118 H 22 157/68 98 08/09/16 12:15 109 H 11 L 148/80 95 08/09/16 12:00 98.7 F 111 H 11 L 148/80 98 - Physical Examination General: Other (intubated on the vent) HEENT: Positive: PERRL, Normocephaly Neck: Positive: neck supple. Negative: JVD/HJR Cardiac: Positive: Regular Rate, irregularly irregular, S1/S2, PMI, Other Lungs: Positive: clear to auscultation, No Wheeze, Rales, Rhonchi Neuro: Positive: Grossly Intact, Other (unresponsive on the vent) Abdomen: Positive: Unremarkable, Soft Skin: Positive: Clear Extremities: Present: normal. Absent: edema - Labs and Meds CBC 08/10/16 08/10/16 Range/Units 06:00 10:00 WBC TNR 12.2 H RBC TNR 5.09 H Hgb TNR 10.3 Hct TNR 35.8 D Plt Count TNR 147 Lymph # TNR [place] # TNR Eos # TNR Baso # TNR Comprehensive Metabolic Panel 08/10/16 Range/Units 08:30 Sodium 145 (137-145) mmol/L Potassium 3.9 (3.6-5.0) mmol/L Chloride 104.4 (98-107) mmol/L Carbon Dioxide 28 (22-30) mmol/L BUN 15 (7-17) mg/dL Creatinine 0.4 L (0.7-1.2) mg/dL Glucose 135 H (65-100) mg/dL Calcium 8.6 (8.4-10.2) mg/dL - Imaging and Cardiology EKG: image reviewed - Allied health notes Allied health notes reviewed: RT
[2016-08-10 12:32] LABS: ISTAT Base Excess 10; ISTAT HCO3 33.8; ISTAT PCO2 48.8 (35-45); ISTAT PH 7.448 (7.35-7.45); ISTAT PO2 126 (80-105); ISTAT SO2 99; ISTAT TCO2 35
[2016-08-10] MEDS: VANCOMYCIN 1,750 MG in NACL 0.9% 500 ML 500 ML IV SCH ×2 (16:21→16:22)
[2016-08-11] MEDS: VANCOMYCIN 1,750 MG in NACL 0.9% 500 ML 500 ML IV SCH ×2 (04:39→17:36)
[2016-08-11] MEDS: LOPRESSOR PO SCH ×3 (04:42→18:07)
[2016-08-11] MEDS: ZOSYN/NS 4.5GM/100ML 4.5 GM/100 ML VIAL IV SCH ×3 (06:15→21:20)
[2016-08-11 07:28] LABS: Basophils % (Auto) 0.1 % (0.0-1.8); Mean Corpuscular HGB Conc 29 % (30-34); Mean Corpuscular Volume 70 fl (79-97); Platelet Count 148 K/mm3 (140-440); White Blood Count 12.6 K/mm3 (4.5-11.0)
[2016-08-11 07:32] LABS: Hematocrit 31.7 % (30.3-42.9); Hemoglobin 9.2 gm/dl (10.1-14.3); Mean Corpuscular Hemoglobin 20 pg (28-32); Red Cell Distribution Width 20.3 % (13.2-15.2)
[2016-08-11 07:49] LABS: Anion Gap 15 mmol/L; Blood Urea Nitrogen 11 mg/dL (7-17); Calcium 8.2 mg/dL (8.4-10.2); Carbon Dioxide 30 mmol/L (22-30); Chloride 99.8 mmol/L (98-107); Glucose 94 mg/dL (65-100); Potassium 3.7 mmol/L (3.6-5.0); Sodium 141 mmol/L (137-145)
--- NOTE | 2016-08-11 11:14 | Progress Note ---
Assessment and Plan 1. Altered mental status improving 2. Acute respiratory failure patien is still intubated 3. Coronary artery disease status post PCI and stent in LAD unsuccessful PCI to a chromic occlusion of the RCA 4. Chronic obstructive pulmonary disease 5. Paroxysmal atrial fibrillation currently in sinus rhythm 6. History of substance abuse Plan. Currently stable wean off ventilator continue present cardiac management Subjective Date of service: 08/11/16 Principal diagnosis: Acute hypoxemic resopiratory faillure on MVS Interval history: No cardiac complains. Objective Vital Signs Temp Pulse Pulse Pulse Pulse Pulse Resp 08/11/16 10:00 08/11/16 08:30 74 20 08/11/16 08:00 98.4 F 73 26 H 08/11/16 07:30 71 19 08/11/16 07:00 83 20 08/11/16 06:30 74 18 08/11/16 06:00 79 19 08/11/16 05:30 81 20 08/11/16 05:00 84 19 08/11/16 04:42 79 08/11/16 04:30 77 18 08/11/16 04:00 98.0 F 78 65 65 65 65 18 08/11/16 03:30 79 17 08/11/16 03:00 78 17 08/11/16 02:30 85 16 08/11/16 02:02 95 H 08/11/16 01:30 74 18 08/11/16 01:00 78 19 08/11/16 00:30 76 18 08/11/16 00:00 80 18 08/10/16 23:56 97.9 F 08/10/16 23:30 89 20 08/10/16 23:25 95 H 18 08/10/16 23:03 112 H 08/10/16 23:00 112 H 13 08/10/16 22:45 76 08/10/16 22:30 111 H 22 08/10/16 22:00 105 H 26 H 08/10/16 21:30 95 H 14 08/10/16 21:00 101 H 12 08/10/16 20:47 08/10/16 20:38 96 H 15 08/10/16 20:30 91 H 19 08/10/16 20:04 84 19 08/10/16 20:00 98.8 F 86 13 08/10/16 19:30 95 H 14 08/10/16 19:00 80 20 08/10/16 18:30 87 17 08/10/16 18:00 75 22 08/10/16 17:30 85 15 08/10/16 17:22 102 H 08/10/16 17:00 118 H 16 08/10/16 16:30 87 16 08/10/16 16:00 98.6 F 97 H 21 08/10/16 15:52 90 23 08/10/16 15:30 88 15 08/10/16 15:00 96 H 26 H 08/10/16 14:30 90 17 08/10/16 14:00 86 25 H 08/10/16 13:30 78 13 08/10/16 13:00 79 25 H 08/10/16 12:30 80 25 H 08/10/16 12:00 98.6 F 78 20 08/10/16 11:30 81 25 H BP Pulse Ox 08/11/16 10:00 96 08/11/16 08:30 148/91 97 08/11/16 08:00 148/91 98 08/11/16 07:30 163/88 96 08/11/16 07:00 163/88 94 08/11/16 06:30 172/86 94 08/11/16 06:00 172/86 94 08/11/16 05:30 176/93 95 08/11/16 05:00 176/93 94 08/11/16 04:42 162/86 08/11/16 04:30 162/86 99 08/11/16 04:00 162/86 98 08/11/16 03:30 159/88 96 08/11/16 03:00 159/88 97 08/11/16 02:30 157/80 98 08/11/16 02:02 161/80 08/11/16 01:30 161/80 96 08/11/16 01:00 161/80 97 08/11/16 00:30 149/82 97 08/11/16 00:00 149/82 95 08/10/16 23:56 08/10/16 23:30 167/94 95 08/10/16 23:25 167/94 97 08/10/16 23:03 166/88 08/10/16 23:00 167/94 92 08/10/16 22:45 08/10/16 22:30 166/88 95 08/10/16 22:00 166/88 95 08/10/16 21:30 169/91 97 08/10/16 21:00 169/91 96 08/10/16 20:47 96 08/10/16 20:38 156/76 98 08/10/16 20:30 156/76 96 08/10/16 20:04 156/76 97 08/10/16 20:00 147/86 95 08/10/16 19:30 156/76 94 08/10/16 19:00 156/76 93 08/10/16 18:30 160/89 97 08/10/16 18:00 160/89 95 08/10/16 17:30 148/84 95 08/10/16 17:22 148/84 08/10/16 17:00 174/106 98 08/10/16 16:30 151/83 95 08/10/16 16:00 148/92 98 08/10/16 15:52 146/84 97 08/10/16 15:30 146/84 95 08/10/16 15:00 140/76 95 08/10/16 14:30 157/89 98 08/10/16 14:00 140/75 94 08/10/16 13:30 137/76 98 08/10/16 13:00 137/77 95 08/10/16 12:30 124/71 95 08/10/16 12:00 129/74 95 08/10/16 11:30 129/75 95 - Physical Examination General: Other (intubated on the vent) HEENT: Positive: PERRL, Normocephaly Neck: Positive: neck supple. Negative: JVD/HJR Cardiac: Positive: Regular Rate, S1/S2. Negative: S3 Lungs: Positive: clear to auscultation, No Wheeze, Rales, Rhonchi Neuro: Positive: Grossly Intact, Other (unresponsive on the vent) Abdomen: Positive: Unremarkable, Soft Skin: Positive: Clear Extremities: Present: normal. Absent: edema - Labs and Meds CBC 08/10/16 08/11/16 Range/Units 10:00 04:00 WBC 12.2 H 12.6 H (4.5-11.0) K/mm3 RBC 5.09 H 4.50 (3.65-5.03) M/mm3 Hgb 10.3 9.2 L (10.1-14.3) gm/dl Hct 35.8 D 31.7 (30.3-42.9) % Plt Count 147 148 (140-440) K/mm3 Lymph # 0.7 L (1.2-5.4) K/mm3 [place] # 1.1 H (0.0-0.8) K/mm3 Eos # 0.0 (0.0-0.4) K/mm3 Baso # 0.0 (0.0-0.1) K/mm3 Comprehensive Metabolic Panel 08/11/16 Range/Units 04:00 Sodium 141 (137-145) mmol/L Potassium 3.7 (3.6-5.0) mmol/L Chloride 99.8 (98-107) mmol/L Carbon Dioxide 30 (22-30) mmol/L BUN 11 (7-17) mg/dL Creatinine 0.2 L (0.7-1.2) mg/dL Glucose 94 (65-100) mg/dL Calcium 8.2 L (8.4-10.2) mg/dL - Imaging and Cardiology EKG: image reviewed - Allied health notes Allied health notes reviewed: RT
[2016-08-11] MEDS: HALFPRIN EC PO SCH (11:49)
[2016-08-11] MEDS: PROTONIX FEEDTUBE SCH (11:49)
[2016-08-11] MEDS: HABITROL TD SCH (11:50)
[2016-08-11] MEDS: PLAVIX PO SCH (11:50)
--- NOTE | 2016-08-11 13:13 | Progress Note ---
Assessment and Plan - Patient Problems (1) Acute respiratory failure Current Visit: Yes Status: Acute Qualifiers: Respiratory failure complication: hypoxia Qualified Code(s): J96.01 - Acute respiratory failure with hypoxia Plan to address problem: Extubated and is doing well NIPPV qhs and PRN Supplemental oxygen as needed for O2 sats>92% Discontinue nunez catheter. Stable for transfer to the floor. Discussed with hospitalist service (2) COPD exacerbation Current Visit: No Status: Acute Plan to address problem: Bronchodilators Steroids, start taper soon VTE prophylaxis Antibiotics to complete course Smoking cessation counselling (3) Aspiration pneumonia Current Visit: Yes Status: Acute Qualifiers: Aspiration pneumonia type: A Laterality: L Lung location: L Plan to address problem: Antibiotics to complete course Aspiration precautions (4) Tobacco abuse Current Visit: No Status: Chronic Plan to address problem: Nicotine withdrawal precautions Nicotine patch Smoking cessation counselling (5) Overdose Current Visit: Yes Status: Acute Qualifiers: Encounter type: E Injury intent: I Plan to address problem: As per hospitalist service Subjective Date of service: 08/11/16 Principal diagnosis: Acute hypoxemic resopiratory faillure on MVS Interval history: Calm, obeying simple commands, no agitation Extubated yesterday. No acute overnight events otherwise. Seen and examined. Vitals,labs, medications, chart reviewed. Discussed with hospitalist service at the bedside Objective - Exam Narrative Exam: The patient appeared well nourished and normally developed. Vital signs as documented. Head exam is unremarkable. No scleral icterus . Neck is without jugular venous distension, thyromegaly, or carotid bruits. Lungs are clear to auscultation. Cardiac exam reveals regular rate and Rhythm. First and second heart sounds normal. No murmurs, rubs or gallops. Abdominal exam reveals normal bowel sounds, no masses, no organomegaly and no aortic enlargement. Extremities ; UExt edema, no cyanosis, no clubbing [employer]: Awake, alert, obeying commands, non-focal Vital Signs - 12hr 08/11/16 08/11/16 08/11/16 01:30 02:02 02:30 Temperature Pulse Rate 74 95 H 85 Pulse Rate [ Left Dorsalis Pedis] Pulse Rate [ Left Radial] Pulse Rate [ Right Dorsalis Pedis] Pulse Rate [ Right Radial] Respiratory 18 16 Rate Blood Pressure 161/80 161/80 157/80 O2 Sat by Pulse 96 98 Oximetry 06/25/17 06/25/17 06/25/17 03:00 03:30 04:00 Temperature 98.0 F Pulse Rate 78 79 78 Pulse Rate [ 65 Left Dorsalis Pedis] Pulse Rate [ 65 Left Radial] Pulse Rate [ 65 Right Dorsalis Pedis] Pulse Rate [ 65 Right Radial] Respiratory 17 17 18 Rate Blood Pressure 159/88 159/88 162/86 O2 Sat by Pulse 97 96 98 Oximetry 08/11/16 08/11/16 08/11/16 04:30 04:42 05:00 Temperature Pulse Rate 77 79 84 Pulse Rate [ Left Dorsalis Pedis] Pulse Rate [ Left Radial] Pulse Rate [ Right Dorsalis Pedis] Pulse Rate [ Right Radial] Respiratory 18 19 Rate Blood Pressure 162/86 162/86 176/93 O2 Sat by Pulse 99 94 Oximetry 08/11/16 08/11/16 08/11/16 05:30 06:00 06:30 Temperature Pulse Rate 81 79 74 Pulse Rate [ Left Dorsalis Pedis] Pulse Rate [ Left Radial] Pulse Rate [ Right Dorsalis Pedis] Pulse Rate [ Right Radial] Respiratory 20 19 18 Rate Blood Pressure 176/93 172/86 172/86 O2 Sat by Pulse 95 94 94 Oximetry 08/11/16 08/11/16 08/11/16 07:00 07:30 08:00 Temperature 98.4 F Pulse Rate 83 71 73 Pulse Rate [ Left Dorsalis Pedis] Pulse Rate [ Left Radial] Pulse Rate [ Right Dorsalis Pedis] Pulse Rate [ Right Radial] Respiratory 20 19 26 H Rate Blood Pressure 163/88 163/88 148/91 O2 Sat by Pulse 94 96 98 Oximetry 08/11/16 08/11/16 08/11/16 08:30 10:00 11:50 Temperature Pulse Rate 74 87 Pulse Rate [ Left Dorsalis Pedis] Pulse Rate [ Left Radial] Pulse Rate [ Right Dorsalis Pedis] Pulse Rate [ Right Radial] Respiratory 20 Rate Blood Pressure 148/91 173/89 O2 Sat by Pulse 97 96 Oximetry Constitutional: no acute distress Eyes: non-icteric ENT: oropharynx moist Neck: supple, no lymphadenopathy, no JVD Effort: normal Ascultation: Bilateral: diminished breath sounds, rhonchi Cardiovascular: regular rate and rhythm Gastrointestinal: normoactive bowel sounds, soft, non-tender, non-distended Integumentary: normal Extremities: no cyanosis, no edema, pink and warm, pulses normal, no ischemia or petechiae Neurologic: other (intubated, sedated) Psychiatric: other (unable to assess) CBC and BMP: 08/11/16 04:00 08/11/16 04:00 ABG, PT/INR, D-dimer: ABG POC ABG pH 7.448 (7.35-7.45) 08/10/16 11:58 POC ABG pCO2 48.8 (35-45) H 08/10/16 11:58 POC ABG pO2 126 (80-105) H 08/10/16 11:58 POC ABG HCO3 33.8 08/10/16 11:58 POC ABG Total CO2 35 08/10/16 11:58 POC ABG O2 Sat 99 08/10/16 11:58 PT/INR, D-dimer PT 15.7 Sec. (12.2-14.9) H 08/05/16 00:06 INR 1.26 (0.87-1.13) H 08/05/16 00:06 Abnormal lab findings: Abnormal Labs 08/05/16 08/05/16 08/05/16 03:41 03:49 03:50 WBC RBC Hgb 8.8 L Hct MCV MCH MCHC RDW Plt Count Lymph % (Auto) [place] % (Auto) Lymph # [place] # Seg Neutrophils % Seg Neuts % (Manual) Lymphocytes % (Manual) Nucleated RBC % Seg Neutrophils # Seg Neutrophils # Man Lymphocytes # (Manual) POC ABG pH 7.269 L 7.269 L POC ABG pCO2 POC ABG pO2 32 L Sodium Potassium Chloride Carbon Dioxide Creatinine Glucose POC Glucose Calcium Total Protein Albumin Urine WBC (Auto) 08/05/16 08/05/16 08/05/16 07:15 10:16 14:35 WBC RBC Hgb 9.0 L 9.1 L 9.5 L Hct MCV MCH MCHC RDW Plt Count Lymph % (Auto) [place] % (Auto) Lymph # [place] # Seg Neutrophils % Seg Neuts % (Manual) Lymphocytes % (Manual) Nucleated RBC % Seg Neutrophils # Seg Neutrophils # Man Lymphocytes # (Manual) POC ABG pH POC ABG pCO2 POC ABG pO2 Sodium Potassium Chloride Carbon Dioxide Creatinine Glucose POC Glucose Calcium Total Protein Albumin Urine WBC (Auto) 0608/06/16 08/06/16 15:30 04:00 04:45 WBC RBC Hgb Hct MCV MCH MCHC RDW Plt Count Lymph % (Auto) [place] % (Auto) Lymph # [place] # Seg Neutrophils % Seg Neuts % (Manual) Lymphocytes % (Manual) Nucleated RBC % Seg Neutrophils # Seg Neutrophils # Man Lymphocytes # (Manual) POC ABG pH POC ABG pCO2 POC ABG pO2 69 L Sodium 150 H Potassium 3.2 L Chloride 116.6 H Carbon Dioxide 21 L Creatinine 0.4 L D Glucose 107 H POC Glucose Calcium 7.9 L Total Protein 5.1 L D Albumin 2.5 L Urine WBC (Auto) 9.0 H 08/07/16 08/07/16 08/07/16 04:00 04:00 04:45 WBC RBC Hgb 7.6 L Hct 26.3 L D MCV 71 L MCH 21 L MCHC 29 L RDW 21.1 H Plt Count Lymph % (Auto) 5.8 L [place] % (Auto) Lymph # 0.5 L [place] # Seg Neutrophils % 87.7 H Seg Neuts % (Manual) Lymphocytes % (Manual) Nucleated RBC % Seg Neutrophils # Seg Neutrophils # Man Lymphocytes # (Manual) POC ABG pH POC ABG pCO2 POC ABG pO2 58 L Sodium 148 H Potassium 3.3 L Chloride 114.1 H Carbon Dioxide Creatinine 0.4 L Glucose 112 H POC Glucose Calcium 8.3 L Total Protein Albumin Urine WBC (Auto) 08/07/16 08/07/16 08/07/16 12:23 15:15 17:59 WBC RBC Hgb 7.7 L Hct 26.7 L MCV 70 L MCH 20 L MCHC 29 L RDW 21.0 H Plt Count 137 L Lymph % (Auto) [place] % (Auto) Lymph # [place] # Seg Neutrophils % Seg Neuts % (Manual) Lymphocytes % (Manual) Nucleated RBC % Seg Neutrophils # Seg Neutrophils # Man Lymphocytes # (Manual) POC ABG pH POC ABG pCO2 POC ABG pO2 Sodium Potassium Chloride Carbon Dioxide Creatinine Glucose POC Glucose 106 H 141 H Calcium Total Protein Albumin Urine WBC (Auto) 08/07/16 08/08/16 08/08/16 23:25 05:28 05:52 WBC RBC Hgb Hct MCV MCH MCHC RDW Plt Count Lymph % (Auto) [place] % (Auto) Lymph # [place] # Seg Neutrophils % Seg Neuts % (Manual) Lymphocytes % (Manual) Nucleated RBC % Seg Neutrophils # Seg Neutrophils # Man Lymphocytes # (Manual) POC ABG pH POC ABG pCO2 POC ABG pO2 73 L Sodium Potassium Chloride Carbon Dioxide Creatinine Glucose POC Glucose 127 H 131 H Calcium Total Protein Albumin Urine WBC (Auto) 08/08/16 08/08/16 08/08/16 06:00 06:00 12:38 WBC RBC Hgb 7.8 L Hct 27.0 L MCV 71 L MCH 20 L MCHC 29 L RDW 20.5 H Plt Count Lymph % (Auto) [place] % (Auto) Lymph # [place] # Seg Neutrophils % Seg Neuts % (Manual) 95.0 H Lymphocytes % (Manual) 1.0 L Nucleated RBC % 1.0 H Seg Neutrophils # Seg Neutrophils # Man 8.6 H Lymphocytes # (Manual) 0.1 L POC ABG pH POC ABG pCO2 POC ABG pO2 Sodium 147 H Potassium Chloride 113.7 H Carbon Dioxide Creatinine 0.3 L Glucose 138 H POC Glucose 146 H Calcium 8.0 L Total Protein Albumin Urine WBC (Auto) 08/08/16 08/08/16 08/09/16 17:48 23:50 05:13 WBC RBC Hgb Hct MCV MCH MCHC RDW Plt Count Lymph % (Auto) [place] % (Auto) Lymph # [place] # Seg Neutrophils % Seg Neuts % (Manual) Lymphocytes % (Manual) Nucleated RBC % Seg Neutrophils # Seg Neutrophils # Man Lymphocytes # (Manual) POC ABG pH 7.455 H POC ABG pCO2 32.9 L POC ABG pO2 67 L Sodium Potassium Chloride Carbon Dioxide Creatinine Glucose POC Glucose 143 H 119 H Calcium Total Protein Albumin Urine WBC (Auto) 08/09/16 08/09/16 08/09/16 05:57 06:20 06:20 WBC RBC Hgb 8.3 L Hct 27.7 L MCV 70 L MCH 21 L MCHC RDW 20.2 H Plt Count 127 L Lymph % (Auto) 5.8 L [place] % (Auto) Lymph # 0.4 L [place] # Seg Neutrophils % 87.5 H Seg Neuts % (Manual) Lymphocytes % (Manual) Nucleated RBC % Seg Neutrophils # Seg Neutrophils # Man Lymphocytes # (Manual) POC ABG pH POC ABG pCO2 POC ABG pO2 Sodium Potassium Chloride 107.9 H Carbon Dioxide Creatinine 0.3 L Glucose 140 H POC Glucose 159 H Calcium 8.2 L Total Protein Albumin Urine WBC (Auto) 08/09/16 08/09/16 08/10/16 12:03 17:47 00:01 WBC RBC Hgb Hct MCV MCH MCHC RDW Plt Count Lymph % (Auto) [place] % (Auto) Lymph # [place] # Seg Neutrophils % Seg Neuts % (Manual) Lymphocytes % (Manual) Nucleated RBC % Seg Neutrophils # Seg Neutrophils # Man Lymphocytes # (Manual) POC ABG pH POC ABG pCO2 POC ABG pO2 Sodium Potassium Chloride Carbon Dioxide Creatinine Glucose POC Glucose 156 H 128 H 145 H Calcium Total Protein Albumin Urine WBC (Auto) 08/10/16 08/10/16 08/10/16 04:46 05:32 08:30 WBC RBC Hgb Hct MCV MCH MCHC RDW Plt Count Lymph % (Auto) [place] % (Auto) Lymph # [place] # Seg Neutrophils % Seg Neuts % (Manual) Lymphocytes % (Manual) Nucleated RBC % Seg Neutrophils # Seg Neutrophils # Man Lymphocytes # (Manual) POC ABG pH 7.454 H POC ABG pCO2 POC ABG pO2 72 L Sodium Potassium Chloride Carbon Dioxide Creatinine 0.4 L Glucose 135 H POC Glucose 142 H Calcium Total Protein Albumin Urine WBC (Auto) 08/10/16 08/10/16 08/10/16 10:00 11:58 12:33 WBC 12.2 H RBC 5.09 H Hgb Hct MCV 70 L MCH 20 L MCHC 29 L RDW 20.9 H Plt Count Lymph % (Auto) [place] % (Auto) Lymph # [place] # Seg Neutrophils % Seg Neuts % (Manual) Lymphocytes % (Manual) Nucleated RBC % Seg Neutrophils # Seg Neutrophils # Man Lymphocytes # (Manual) POC ABG pH POC ABG pCO2 48.8 H POC ABG pO2 126 H Sodium Potassium Chloride Carbon Dioxide Creatinine Glucose POC Glucose 156 H Calcium Total Protein Albumin Urine WBC (Auto) 08/10/16 08/10/16 08/11/16 17:35 23:33 04:00 WBC 12.6 H RBC Hgb 9.2 L Hct MCV 70 L MCH 20 L MCHC 29 L RDW 20.3 H Plt Count Lymph % (Auto) 5.5 L [place] % (Auto) 8.6 H Lymph # 0.7 L [place] # 1.1 H Seg Neutrophils % 85.8 H Seg Neuts % (Manual) Lymphocytes % (Manual) Nucleated RBC % Seg Neutrophils # 10.8 H Seg Neutrophils # Man Lymphocytes # (Manual) POC ABG pH POC ABG pCO2 POC ABG pO2 Sodium Potassium Chloride Carbon Dioxide Creatinine Glucose POC Glucose 149 H 108 H Calcium Total Protein Albumin Urine WBC (Auto) 08/11/16 04:00 WBC RBC Hgb Hct MCV MCH MCHC RDW Plt Count Lymph % (Auto) [place] % (Auto) Lymph # [place] # Seg Neutrophils % Seg Neuts % (Manual) Lymphocytes % (Manual) Nucleated RBC % Seg Neutrophils # Seg Neutrophils # Man Lymphocytes # (Manual) POC ABG pH POC ABG pCO2 POC ABG pO2 Sodium Potassium Chloride Carbon Dioxide Creatinine 0.2 L Glucose POC Glucose Calcium 8.2 L Total Protein Albumin Urine WBC (Auto) Allied health notes reviewed: RT
--- NOTE | 2016-08-11 14:31 | Progress Note ---
Assessment and Plan Assessment and plan: Acute respiratory failure, was on mechanical ventilation extubated yesterday. Drug overdose SIRS with hypotension COPD CHF CAD Cardiomyopathy - Patient is extubated - On IV antibiotics and IV fluids - Blood, urine and tracheal aspirate cultures are negative - Cardiology and pulmonary consult appreciated - GI was consulted for coffee ground emesis at the time of intubation in the ED , stool was positive for blood Prophylaxis - Mechanical because of coffee-ground emesis Prognosis - guarded Disposition - Continue ICU care. History Interval history: Patient was seen and evaluated this morning, patient extubated yesterday, no new compliants, alert and oriented, wanted to be treated. Hospitalist Physical - Physical exam Narrative exam: Patient iis on [place] oxygen. The patient appeared well nourished and normally developed. Vital signs as documented. Head exam is unremarkable. No scleral icterus . Neck is without jugular venous distension, thyromegaly, or carotid bruits. Lungs are clear to auscultation. Cardiac exam reveals regular rate and Rhythm. First and second heart sounds normal. No murmurs, rubs or gallops. Abdominal exam reveals normal bowel sounds, no masses, no organomegaly and no aortic enlargement. Extremities are nonedematous and both femoral and pedal pulses are normal. TOOL SMITH: Alert and oriented - Constitutional Vitals: Temp Pulse Resp BP Pulse Ox 98.5 F 84 12 143/85 97 08/11/16 12:00 08/11/16 13:00 08/11/16 13:00 08/11/16 13:00 08/11/16 13:00 General appearance: Present: other (patient is unresponsive on the vent) Results - Labs CBC & Chem 7: 08/11/16 04:00 08/11/16 04:00 Labs: Laboratory Last Values WBC 12.6 K/mm3 (4.5-11.0) H 08/11/16 04:00 RBC 4.50 M/mm3 (3.65-5.03) 08/11/16 04:00 Hgb 9.2 gm/dl (10.1-14.3) L 08/11/16 04:00 Hct 31.7 % (30.3-42.9) 08/11/16 04:00 MCV 70 fl (79-97) L 08/11/16 04:00 MCH 20 pg (28-32) L 08/11/16 04:00 MCHC 29 % (30-34) L 08/11/16 04:00 RDW 20.3 % (13.2-15.2) H 08/11/16 04:00 Plt Count 148 K/mm3 (140-440) 08/11/16 04:00 Lymph % (Auto) 5.5 % (13.4-35.0) L 08/11/16 04:00 [place] % (Auto) 8.6 % (0.0-7.3) H 08/11/16 04:00 Eos % (Auto) 0.0 % (0.0-4.3) 08/11/16 04:00 Baso % (Auto) 0.1 % (0.0-1.8) 08/11/16 04:00 Lymph # 0.7 K/mm3 (1.2-5.4) L 08/11/16 04:00 [place] # 1.1 K/mm3 (0.0-0.8) H 08/11/16 04:00 Eos # 0.0 K/mm3 (0.0-0.4) 08/11/16 04:00 Baso # 0.0 K/mm3 (0.0-0.1) 08/11/16 04:00 Add Manual Diff TNR 08/10/16 06:00 Total Counted 100 08/08/16 06:00 Seg Neutrophils % 85.8 % (40.0-70.0) H 08/11/16 04:00 Seg Neuts % (Manual) 95.0 % (40.0-70.0) H 08/08/16 06:00 Band Neutrophils % 0 % 08/08/16 06:00 Lymphocytes % (Manual) 1.0 % (13.4-35.0) L 08/08/16 06:00 Reactive Lymphs % (Man) 0 % 08/08/16 06:00 Monocytes % (Manual) 4.0 % (0.0-7.3) 08/08/16 06:00 Eosinophils % (Manual) 0 % (0.0-4.3) 08/08/16 06:00 Basophils % (Manual) 0 % (0.0-1.8) 08/08/16 06:00 Metamyelocytes % 0 % 08/08/16 06:00 Myelocytes % 0 % 08/08/16 06:00 Promyelocytes % 0 % 08/08/16 06:00 Blast Cells % 0 % 08/08/16 06:00 Nucleated RBC % 1.0 % (0.0-0.9) H 08/08/16 06:00 Seg Neutrophils # 10.8 K/mm3 (1.8-7.7) H 08/11/16 04:00 Seg Neutrophils # Man 8.6 K/mm3 (1.8-7.7) H 08/08/16 06:00 Band Neutrophils # 0.0 K/mm3 08/08/16 06:00 Lymphocytes # (Manual) 0.1 K/mm3 (1.2-5.4) L 08/08/16 06:00 Abs React Lymphs (Man) 0.0 K/mm3 08/08/16 06:00 Monocytes # (Manual) 0.4 K/mm3 (0.0-0.8) 08/08/16 06:00 Eosinophils # (Manual) 0.0 K/mm3 (0.0-0.4) 08/08/16 06:00 Basophils # (Manual) 0.0 K/mm3 (0.0-0.1) 08/08/16 06:00 Metamyelocytes # 0.0 K/mm3 08/08/16 06:00 Myelocytes # 0.0 K/mm3 08/08/16 06:00 Promyelocytes # 0.0 K/mm3 08/08/16 06:00 Blast Cells # 0.0 K/mm3 08/08/16 06:00 WBC Morphology Not Reportable 08/08/16 06:00 Hypersegmented Neuts Not Reportable 08/08/16 06:00 Hyposegmented Neuts Not Reportable 08/08/16 06:00 Hypogranular Neuts Not Reportable 08/08/16 06:00 Smudge Cells Not Reportable 08/08/16 06:00 Toxic Granulation Not Reportable 08/08/16 06:00 Toxic Vacuolation Not Reportable 08/08/16 06:00 Dohle Bodies Not Reportable 08/08/16 06:00 Pelger-Huet Anomaly Not Reportable 08/08/16 06:00 Neha Rods Not Reportable 08/08/16 06:00 Platelet Estimate Appears normal 08/08/16 06:00 Clumped Platelets Not Reportable 08/08/16 06:00 Plt Clumps, EDTA Not Reportable 08/08/16 06:00 Large Platelets Not Reportable 08/08/16 06:00 Giant Platelets Not Reportable 08/08/16 06:00 Platelet Satelliting Not Reportable 08/08/16 06:00 Plt Morphology Comment Not Reportable 08/08/16 06:00 RBC Morphology Not Reportable 08/08/16 06:00 Dimorphic RBCs Not Reportable 08/08/16 06:00 Polychromasia Not Reportable 08/08/16 06:00 Hypochromasia 2+ 08/08/16 06:00 Poikilocytosis Not Reportable 08/08/16 06:00 Anisocytosis 1+ 08/08/16 06:00 Microcytosis Not Reportable 08/08/16 06:00 Macrocytosis Not Reportable 08/08/16 06:00 Spherocytes Not Reportable 08/08/16 06:00 Pappenheimer Bodies Not Reportable 08/08/16 06:00 Sickle Cells Not Reportable 08/08/16 06:00 Target Cells Not Reportable 08/08/16 06:00 Tear Drop Cells Not Reportable 08/08/16 06:00 Ovalocytes Not Reportable 08/08/16 06:00 Helmet Cells Not Reportable 08/08/16 06:00 [place] Bodies Not Reportable 08/08/16 06:00 Percival Rings Not Reportable 08/08/16 06:00 [place] Cells Not Reportable 08/08/16 06:00 Bite Cells Not Reportable 08/08/16 06:00 Crenated Cell Not Reportable 08/08/16 06:00 Elliptocytes Not Reportable 08/08/16 06:00 Acanthocytes (Spur) Not Reportable 08/08/16 06:00 Rouleaux Not Reportable 08/08/16 06:00 Hemoglobin C Crystals Not Reportable 08/08/16 06:00 Schistocytes Not Reportable 08/08/16 06:00 Malaria parasites Not Reportable 08/08/16 06:00 Hernan Bodies Not Reportable 08/08/16 06:00 Hem Pathologist Commnt No 08/08/16 06:00 PT 15.7 Sec. (12.2-14.9) H 08/05/16 00:06 INR 1.26 (0.87-1.13) H 08/05/16 00:06 APTT 40.4 Sec. (24.2-36.6) H 08/05/16 00:06 POC ABG pH 7.448 (7.35-7.45) 08/10/16 11:58 POC ABG pCO2 48.8 (35-45) H 08/10/16 11:58 POC ABG pO2 126 (80-105) H 08/10/16 11:58 POC ABG HCO3 33.8 08/10/16 11:58 POC ABG Total CO2 35 08/10/16 11:58 POC ABG O2 Sat 99 08/10/16 11:58 POC ABG Base Excess 10 08/10/16 11:58 FiO2 50 % 08/10/16 11:58 Sodium 141 mmol/L (137-145) 08/11/16 04:00 Potassium 3.7 mmol/L (3.6-5.0) 08/11/16 04:00 Chloride 99.8 mmol/L (98-107) 08/11/16 04:00 Carbon Dioxide 30 mmol/L (22-30) 08/11/16 04:00 Anion Gap 15 mmol/L 08/11/16 04:00 BUN 11 mg/dL (7-17) 08/11/16 04:00 Creatinine 0.2 mg/dL (0.7-1.2) L 08/11/16 04:00 Estimated GFR > 60 ml/min 08/11/16 04:00 BUN/Creatinine Ratio 55.00 % 08/11/16 04:00 Glucose 94 mg/dL (65-100) 08/11/16 04:00 POC Glucose 96 (70-105) 08/11/16 11:28 Lactic Acid 1.10 mmol/L (0.7-2.0) 08/05/16 03:49 Calcium 8.2 mg/dL (8.4-10.2) L 08/11/16 04:00 Total Bilirubin 0.30 mg/dL (0.1-1.2) 08/06/16 04:00 AST 17 units/L (5-40) 08/06/16 04:00 ALT 8 units/L (7-56) 08/06/16 04:00 Alkaline Phosphatase 63 units/L (35-129) 08/06/16 04:00 Total Creatine Kinase 76 units/L (30-135) 08/05/16 07:15 CK-MB (CK-2) 2.0 ng/mL (0.0-4.0) 08/05/16 07:15 CK-MB (CK-2) Rel Index 2.6 (0-4) 08/05/16 07:15 Troponin T < 0.010 ng/mL (0.00-0.029) 08/05/16 07:15 Total Protein 5.1 g/dL (6.3-8.2) L D 08/06/16 04:00 Albumin 2.5 g/dL (3.9-5) L 08/06/16 04:00 Albumin/Globulin Ratio 1.0 % 08/06/16 04:00 Urine Color Yellow (Yellow) 08/05/16 15:30 Urine Turbidity Clear (Clear) 08/05/16 15:30 Urine pH 5.0 (5.0-7.0) 08/05/16 15:30 Ur Specific [place] 1.020 (1.003-1.030) 08/05/16 15:30 Urine Protein 30 mg/dl mg/dL (Negative) 08/05/16 15:30 Urine Glucose (UA) Neg mg/dL (Negative) 08/05/16 15:30 Urine Ketones Tr mg/dL (Negative) 08/05/16 15:30 Urine Blood Mod (Negative) 08/05/16 15:30 Urine Nitrite Neg (Negative) 08/05/16 15:30 Urine Bilirubin Neg (Negative) 08/05/16 15:30 Urine Urobilinogen < 2.0 mg/dL (<2.0) 08/05/16 15:30 Ur Leukocyte Esterase Tr (Negative) 08/05/16 15:30 Urine WBC (Auto) 9.0 /HPF (0.0-6.0) H 08/05/16 15:30 Urine RBC (Auto) 1.0 /HPF (0.0-6.0) 08/05/16 15:30 U Epithel Cells (Auto) < 1.0 /HPF (0-13.0) 08/05/16 15:30 Urine Yeast (Budding) 1+ /HPF 08/05/16 15:30 Vancomycin Trough 10.2 ug/mL (5.0-20.0) 08/07/16 15:15 Salicylates 3.5 mg/dL (2.8-20.0) 08/05/16 03:49 Urine Opiates Screen Presumptive positive 08/05/16 01:06 Urine Methadone Screen Presumptive negative 08/05/16 01:06 Acetaminophen < 15.0 ug/mL (10.0-30.0) 08/05/16 00:06 Ur Barbiturates Screen Presumptive negative 08/05/16 01:06 Ur Phencyclidine Scrn Presumptive negative 08/05/16 01:06 Ur Amphetamines Screen Presumptive negative 08/05/16 01:06 U Benzodiazepines Scrn Presumptive negative 08/05/16 01:06 Urine Cocaine Screen Presumptive negative 08/05/16 01:06 U Marijuana (THC) Screen Presumptive negative 08/05/16 01:06 Drugs of Abuse Note Disclamer 08/05/16 01:06 Plasma/Serum Alcohol < 0.01 gm% (0-0.07) 08/05/16 00:06 Blood Type O POSITIVE 08/05/16 00:06 JACOB Antibody Screen Negative 08/05/16 00:06
[2016-08-11] MEDS ORDERED: WATER FOR INJ (PF) 10 ML ONE (21:12)
[2016-08-11] MEDS: TYLENOL PO PRN (21:19)
[2016-08-12] MEDS: LOPRESSOR PO SCH ×4 (00:35→18:27)
[2016-08-12] MEDS: VANCOMYCIN 1,750 MG in NACL 0.9% 500 ML 500 ML IV SCH ×2 (04:30→18:18)
[2016-08-12] MEDS: ZOSYN/NS 4.5GM/100ML 4.5 GM/100 ML VIAL IV SCH (06:07)
[2016-08-12 07:33] LABS: Basophils % (Auto) 0.1 % (0.0-1.8); Mean Corpuscular HGB Conc 30 % (30-34); Platelet Count 156 K/mm3 (140-440); Red Blood Count 4.58 M/mm3 (3.65-5.03); White Blood Count 13.5 K/mm3 (4.5-11.0)
[2016-08-12 07:50] LABS: Anion Gap 15 mmol/L; BUN/Creatinine Ratio 43.33; Blood Urea Nitrogen 13 mg/dL (7-17); Calcium 7.9 mg/dL (8.4-10.2); Carbon Dioxide 28 mmol/L (22-30); Chloride 99.7 mmol/L (98-107); Glucose 100 mg/dL (65-100); Potassium 3.2 mmol/L (3.6-5.0); Sodium 139 mmol/L (137-145)
[2016-08-12 08:10] LABS: Hematocrit 31.4 % (30.3-42.9); Hemoglobin 9.3 gm/dl (10.1-14.3); Mean Corpuscular Hemoglobin 20 pg (28-32); Mean Corpuscular Volume 69 fl (79-97); Red Cell Distribution Width 20.2 % (13.2-15.2)
--- NOTE | 2016-08-12 10:56 | Gastroenterology Progress Note ---
<FELICITAS JOELDirk - Last Filed: 08/12/16 10:57> Assessment and Plan 1. coffee-ground emesis 2. anemia 3. hx PUD 4. acute respiratory failure 5. possibe overdose -extubated 2 days ago, on O2 via NC- SOB with exertion -patient reports hx of PUD w/ possible gastric sx? -Last EGD 2010-revealed hital hernia, 4cm pyloric ulcer (bx negative), duodenojejunal stricture, and foreign body -Last Colonoscopy 2009- revealed diverticulosis and hemorrhoids -HGB stable-continue to trend and transfuse as needed -no active signs of bleeding -continue PPI -will consider EGD/colonoscopy when pt's respiratory status is optimal -will follow Subjective Date of service: 08/12/16 Principal diagnosis: GI bleed Interval history: Patient resting in bed. No acute distress noted. On O2 via NC, SOB with exertion during conversations noted. Denies abd pain, N/V, hematemesis, melena, or hematochezia. Reports a hx of PUD. BM today with brown stool. Admits to use of NSAIDs at home. Objective - Constitutional Vitals: Temp Pulse Resp BP Pulse Ox 97.4 F L 81 18 174/89 96 08/12/16 09:51 08/12/16 09:51 08/12/16 09:51 08/12/16 09:51 08/12/16 10:00 General appearance: no acute distress - EENT Eyes: PERRL, EOM intact ENT: hearing intact - Neck Neck: supple, normal ROM - Respiratory Respiratory: bilateral: diminished (anterior) - Cardiovascular Rhythm: regular Heart Sounds: Present: S1 & S2 - Extremities Extremities: No edema - Gastrointestinal General gastrointestinal: Present: soft, non-tender, non-distended, normal bowel sounds - Integumentary Integumentary: Present: warm, dry - Neurologic Neurological: alert and oriented x3 - Psychiatric Psychiatric: appropriate mood/affect, cooperative - Labs CBC & Chem 7: 08/12/16 06:41 08/12/16 06:41 Labs: Laboratory Results - last 24 hr 08/11/16 08/11/16 08/11/16 11:28 16:36 21:26 WBC RBC Hgb Hct MCV MCH MCHC RDW Plt Count Lymph % (Auto) [place] % (Auto) Eos % (Auto) Baso % (Auto) Lymph # [place] # Eos # Baso # Seg Neutrophils % Seg Neutrophils # Sodium Potassium Chloride Carbon Dioxide Anion Gap BUN Creatinine Estimated GFR BUN/Creatinine Ratio Glucose POC Glucose 96 97 103 Calcium 08/12/16 08/12/16 06:41 06:41 WBC 13.5 H RBC 4.58 Hgb 9.3 L Hct 31.4 MCV 69 L MCH 20 L MCHC 30 RDW 20.2 H Plt Count 156 Lymph % (Auto) 8.0 L [place] % (Auto) 15.3 H Eos % (Auto) 0.0 Baso % (Auto) 0.1 Lymph # 1.1 L [place] # 2.1 H Eos # 0.0 Baso # 0.0 Seg Neutrophils % 76.6 H Seg Neutrophils # 10.4 H Sodium 139 Potassium 3.2 L Chloride 99.7 Carbon Dioxide 28 Anion Gap 15 BUN 13 Creatinine 0.3 L Estimated GFR > 60 BUN/Creatinine Ratio 43.33 Glucose 100 POC Glucose Calcium 7.9 L <FITZ WHITE - Last Filed: 08/13/16 08:50> Assessment and Plan Patient seen and examined. Will plan for EGD tomorrow for h/o PUD and coffee ground emesis. Further recommendations following procedure. Objective - Constitutional Vitals: Temp Pulse Resp BP Pulse Ox 97.8 F 87 20 136/74 99 08/13/16 06:28 08/13/16 06:41 08/13/16 06:28 08/13/16 06:41 08/13/16 06:28 - Labs CBC & Chem 7: 08/13/16 06:41 08/13/16 06:41 Labs: Laboratory Results - last 24 hr 08/12/16 08/12/16 08/12/16 08:07 12:13 16:26 WBC RBC Hgb Hct MCV MCH MCHC RDW Plt Count Lymph % (Auto) [place] % (Auto) Eos % (Auto) Baso % (Auto) Lymph # [place] # Eos # Baso # Seg Neutrophils % Seg Neutrophils # Sodium Potassium Chloride Carbon Dioxide Anion Gap BUN Creatinine Estimated GFR BUN/Creatinine Ratio Glucose POC Glucose 89 134 H 176 H Calcium 08/12/16 08/13/16 08/13/16 21:52 06:41 06:41 WBC 12.2 H RBC 4.23 Hgb 8.4 L Hct 29.6 L MCV 70 L MCH 20 L MCHC 29 L RDW 20.5 H Plt Count 176 Lymph % (Auto) 15.0 [place] % (Auto) 15.5 H Eos % (Auto) 1.5 Baso % (Auto) 0.1 Lymph # 1.8 [place] # 1.9 H Eos # 0.2 Baso # 0.0 Seg Neutrophils % 67.9 Seg Neutrophils # 8.3 H Sodium 140 Potassium 2.9 L* Chloride 100.4 Carbon Dioxide 27 Anion Gap 16 BUN 11 Creatinine 0.4 L Estimated GFR > 60 BUN/Creatinine Ratio 27.50 Glucose 84 POC Glucose 101 Calcium 8.2 L
[2016-08-12] MEDS: PLAVIX PO SCH (11:27)
[2016-08-12] MEDS: HALFPRIN EC PO SCH (11:27)
[2016-08-12] MEDS: PROTONIX FEEDTUBE SCH (11:28)
[2016-08-12] MEDS: HABITROL TD SCH (11:28)
[2016-08-12] MEDS: DELTASONE PO SCH (11:37)
--- NOTE | 2016-08-12 13:26 | Progress Note ---
Assessment and Plan Acute respiratory failure Possible overdose SIRS Abnormal ECG ECG shows Q waves and inferior ST elevation which likely represents the inferior STEMI of 3 months ago, with persistence of ECG abnormalities. Coronary artery disease There is chronic occlusion of the distal right coronary artery, with unsuccessful angioplasty 3 months ago at [facility]. In addition, there is mid LAD stenosis which was treated successfully last month (06/26) with a bare metal stent at [facility]. On plavix and aspirin Mild Cardiomyopathy EF 40-45% on echo 06/2016 Hx of COPD Coffee ground emesis Paroxysmal afib with RVR - new onset currently in sinus rhythm Continue current management. Subjective Date of service: 08/12/16 Principal diagnosis: GI bleed Interval history: Transferred to telemetry floor overnight. Patient denies chest pain and shortness of breath. No reports of bleeding per nursing. Objective Vital Signs Temp Pulse Pulse Pulse Pulse Pulse Pulse 08/12/16 10:00 08/12/16 09:51 97.4 F L 81 81 81 81 81 08/12/16 06:07 115 H 08/12/16 01:17 98.2 F 84 95 H 18 L 95 H 08/12/16 00:35 89 08/11/16 22:00 100 H 08/11/16 21:30 84 08/11/16 20:24 97.9 F 96 H 96 H 96 H 96 H 08/11/16 18:07 86 08/11/16 17:00 97.5 F L 08/11/16 16:00 98.4 F Pulse Resp BP BP Pulse Ox 08/12/16 10:00 96 08/12/16 09:51 18 174/89 08/12/16 06:07 139/82 08/12/16 01:17 18 128/64 95 08/12/16 00:35 08/11/16 22:00 08/11/16 21:30 20 08/11/16 20:24 18 140/68 99 08/11/16 18:07 142/73 08/11/16 17:00 83 20 171/90 95 08/11/16 16:00 - Physical Examination General: No Apparent Distress HEENT: Positive: PERRL Neck: Positive: trachea midline Cardiac: Positive: Reg Rate and Rhythm Neuro: Positive: Grossly Intact Extremities: Absent: edema - Labs and Meds CBC 08/12/16 Range/Units 06:41 WBC 13.5 H (4.5-11.0) K/mm3 RBC 4.58 (3.65-5.03) M/mm3 Hgb 9.3 L (10.1-14.3) gm/dl Hct 31.4 (30.3-42.9) % Plt Count 156 (140-440) K/mm3 Lymph # 1.1 L (1.2-5.4) K/mm3 [place] # 2.1 H (0.0-0.8) K/mm3 Eos # 0.0 (0.0-0.4) K/mm3 Baso # 0.0 (0.0-0.1) K/mm3 Comprehensive Metabolic Panel 08/12/16 Range/Units 06:41 Sodium 139 (137-145) mmol/L Potassium 3.2 L (3.6-5.0) mmol/L Chloride 99.7 (98-107) mmol/L Carbon Dioxide 28 (22-30) mmol/L BUN 13 (7-17) mg/dL Creatinine 0.3 L (0.7-1.2) mg/dL Glucose 100 (65-100) mg/dL Calcium 7.9 L (8.4-10.2) mg/dL - Imaging and Cardiology EKG: image reviewed - Allied health notes Allied health notes reviewed: RT
--- NOTE | 2016-08-12 16:29 | Progress Note ---
Assessment and Plan Assessment and plan: Acute respiratory failure, was on mechanical ventilation extubated 2 days ago Drug overdose SIRS with hypotension COPD CHF CAD Cardiomyopathy Anemia GI bleed - Patient has mild shortness of breath on exertion - IV antibiotics and IV fluids discontinued - Blood, urine and tracheal aspirate cultures are negative - Cardiology and pulmonary consult appreciated - GI was consulted and will do EGD and colonoscopy once she is stable respiratory smalls. - Patient is on pantoprazole - We will consult psychiatric for overdose Prophylaxis - Mechanical because of coffee-ground emesis Disposition - Continuein inpatient care. History Interval history: Patient was seen and evaluated this morning, patient extubated 2 days ago, no new compliants, alert and oriented. Hospitalist Physical - Physical exam Narrative exam: Patient iis on [place] oxygen. The patient appeared well nourished and normally developed. Vital signs as documented. Head exam is unremarkable. No scleral icterus . Neck is without jugular venous distension, thyromegaly, or carotid bruits. Lungs are clear to auscultation. Cardiac exam reveals regular rate and Rhythm. First and second heart sounds normal. No murmurs, rubs or gallops. Abdominal exam reveals normal bowel sounds, no masses, no organomegaly and no aortic enlargement. Extremities are nonedematous and both femoral and pedal pulses are normal. 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 - Constitutional Vitals: Temp Pulse Resp BP Pulse Ox 98.0 F 69 18 174/86 96 08/12/16 13:21 08/12/16 13:21 08/12/16 13:21 08/12/16 13:21 08/12/16 10:00 General appearance: Present: other (patient is unresponsive on the vent) Results - Labs CBC & Chem 7: 08/12/16 06:41 08/12/16 06:41 Labs: Laboratory Last Values WBC 13.5 K/mm3 (4.5-11.0) H 08/12/16 06:41 RBC 4.58 M/mm3 (3.65-5.03) 08/12/16 06:41 Hgb 9.3 gm/dl (10.1-14.3) L 08/12/16 06:41 Hct 31.4 % (30.3-42.9) 08/12/16 06:41 MCV 69 fl (79-97) L 08/12/16 06:41 MCH 20 pg (28-32) L 08/12/16 06:41 MCHC 30 % (30-34) 08/12/16 06:41 RDW 20.2 % (13.2-15.2) H 08/12/16 06:41 Plt Count 156 K/mm3 (140-440) 08/12/16 06:41 Lymph % (Auto) 8.0 % (13.4-35.0) L 08/12/16 06:41 Cross % (Auto) 15.3 % (0.0-7.3) H 08/12/16 06:41 Eos % (Auto) 0.0 % (0.0-4.3) 08/12/16 06:41 Baso % (Auto) 0.1 % (0.0-1.8) 08/12/16 06:41 Lymph # 1.1 K/mm3 (1.2-5.4) L 08/12/16 06:41 Cross # 2.1 K/mm3 (0.0-0.8) H 08/12/16 06:41 Eos # 0.0 K/mm3 (0.0-0.4) 08/12/16 06:41 Baso # 0.0 K/mm3 (0.0-0.1) 08/12/16 06:41 Add Manual Diff TNR 08/10/16 06:00 Total Counted 100 08/08/16 06:00 Seg Neutrophils % 76.6 % (40.0-70.0) H 08/12/16 06:41 Seg Neuts % (Manual) 95.0 % (40.0-70.0) H 08/08/16 06:00 Band Neutrophils % 0 % 08/08/16 06:00 Lymphocytes % (Manual) 1.0 % (13.4-35.0) L 08/08/16 06:00 Reactive Lymphs % (Man) 0 % 08/08/16 06:00 Monocytes % (Manual) 4.0 % (0.0-7.3) 08/08/16 06:00 Eosinophils % (Manual) 0 % (0.0-4.3) 08/08/16 06:00 Basophils % (Manual) 0 % (0.0-1.8) 08/08/16 06:00 Metamyelocytes % 0 % 08/08/16 06:00 Myelocytes % 0 % 08/08/16 06:00 Promyelocytes % 0 % 08/08/16 06:00 Blast Cells % 0 % 08/08/16 06:00 Nucleated RBC % 1.0 % (0.0-0.9) H 08/08/16 06:00 Seg Neutrophils # 10.4 K/mm3 (1.8-7.7) H 08/12/16 06:41 Seg Neutrophils # Man 8.6 K/mm3 (1.8-7.7) H 08/08/16 06:00 Band Neutrophils # 0.0 K/mm3 08/08/16 06:00 Lymphocytes # (Manual) 0.1 K/mm3 (1.2-5.4) L 08/08/16 06:00 Abs React Lymphs (Man) 0.0 K/mm3 08/08/16 06:00 Monocytes # (Manual) 0.4 K/mm3 (0.0-0.8) 08/08/16 06:00 Eosinophils # (Manual) 0.0 K/mm3 (0.0-0.4) 08/08/16 06:00 Basophils # (Manual) 0.0 K/mm3 (0.0-0.1) 08/08/16 06:00 Metamyelocytes # 0.0 K/mm3 08/08/16 06:00 Myelocytes # 0.0 K/mm3 08/08/16 06:00 Promyelocytes # 0.0 K/mm3 08/08/16 06:00 Blast Cells # 0.0 K/mm3 08/08/16 06:00 WBC Morphology Not Reportable 08/08/16 06:00 Hypersegmented Neuts Not Reportable 08/08/16 06:00 Hyposegmented Neuts Not Reportable 08/08/16 06:00 Hypogranular Neuts Not Reportable 08/08/16 06:00 Smudge Cells Not Reportable 08/08/16 06:00 Toxic Granulation Not Reportable 08/08/16 06:00 Toxic Vacuolation Not Reportable 08/08/16 06:00 Dohle Bodies Not Reportable 08/08/16 06:00 Pelger-Huet Anomaly Not Reportable 08/08/16 06:00 Neha Rods Not Reportable 08/08/16 06:00 Platelet Estimate Appears normal 08/08/16 06:00 Clumped Platelets Not Reportable 08/08/16 06:00 Plt Clumps, EDTA Not Reportable 08/08/16 06:00 Large Platelets Not Reportable 08/08/16 06:00 Giant Platelets Not Reportable 08/08/16 06:00 Platelet Satelliting Not Reportable 08/08/16 06:00 Plt Morphology Comment Not Reportable 08/08/16 06:00 RBC Morphology Not Reportable 08/08/16 06:00 Dimorphic RBCs Not Reportable 08/08/16 06:00 Polychromasia Not Reportable 08/08/16 06:00 Hypochromasia 2+ 08/08/16 06:00 Poikilocytosis Not Reportable 08/08/16 06:00 Anisocytosis 1+ 08/08/16 06:00 Microcytosis Not Reportable 08/08/16 06:00 Macrocytosis Not Reportable 08/08/16 06:00 Spherocytes Not Reportable 08/08/16 06:00 Pappenheimer Bodies Not Reportable 08/08/16 06:00 Sickle Cells Not Reportable 08/08/16 06:00 Target Cells Not Reportable 08/08/16 06:00 Tear Drop Cells Not Reportable 08/08/16 06:00 Ovalocytes Not Reportable 08/08/16 06:00 Helmet Cells Not Reportable 08/08/16 06:00 [place] Bodies Not Reportable 08/08/16 06:00 [place] Rings Not Reportable 08/08/16 06:00 [place] Cells Not Reportable 08/08/16 06:00 Bite Cells Not Reportable 08/08/16 06:00 Crenated Cell Not Reportable 08/08/16 06:00 Elliptocytes Not Reportable 08/08/16 06:00 Acanthocytes (Spur) Not Reportable 08/08/16 06:00 Rouleaux Not Reportable 08/08/16 06:00 Hemoglobin C Crystals Not Reportable 08/08/16 06:00 Schistocytes Not Reportable 08/08/16 06:00 Malaria parasites Not Reportable 08/08/16 06:00 Hernan Bodies Not Reportable 08/08/16 06:00 Hem Pathologist Commnt No 08/08/16 06:00 PT 15.7 Sec. (12.2-14.9) H 08/05/16 00:06 INR 1.26 (0.87-1.13) H 08/05/16 00:06 APTT 40.4 Sec. (24.2-36.6) H 08/05/16 00:06 POC ABG pH 7.448 (7.35-7.45) 08/10/16 11:58 POC ABG pCO2 48.8 (35-45) H 08/10/16 11:58 POC ABG pO2 126 (80-105) H 08/10/16 11:58 POC ABG HCO3 33.8 08/10/16 11:58 POC ABG Total CO2 35 08/10/16 11:58 POC ABG O2 Sat 99 08/10/16 11:58 POC ABG Base Excess 10 08/10/16 11:58 FiO2 50 % 08/10/16 11:58 Sodium 139 mmol/L (137-145) 08/12/16 06:41 Potassium 3.2 mmol/L (3.6-5.0) L 08/12/16 06:41 Chloride 99.7 mmol/L (98-107) 08/12/16 06:41 Carbon Dioxide 28 mmol/L (22-30) 08/12/16 06:41 Anion Gap 15 mmol/L 08/12/16 06:41 BUN 13 mg/dL (7-17) 08/12/16 06:41 Creatinine 0.3 mg/dL (0.7-1.2) L 08/12/16 06:41 Estimated GFR > 60 ml/min 08/12/16 06:41 BUN/Creatinine Ratio 43.33 % 08/12/16 06:41 Glucose 100 mg/dL (65-100) 08/12/16 06:41 POC Glucose 103 (70-105) 08/11/16 21:26 Lactic Acid 1.10 mmol/L (0.7-2.0) 08/05/16 03:49 Calcium 7.9 mg/dL (8.4-10.2) L 08/12/16 06:41 Total Bilirubin 0.30 mg/dL (0.1-1.2) 08/06/16 04:00 AST 17 units/L (5-40) 08/06/16 04:00 ALT 8 units/L (7-56) 08/06/16 04:00 Alkaline Phosphatase 63 units/L (35-129) 08/06/16 04:00 Total Creatine Kinase 76 units/L (30-135) 08/05/16 07:15 CK-MB (CK-2) 2.0 ng/mL (0.0-4.0) 08/05/16 07:15 CK-MB (CK-2) Rel Index 2.6 (0-4) 08/05/16 07:15 Troponin T < 0.010 ng/mL (0.00-0.029) 08/05/16 07:15 Total Protein 5.1 g/dL (6.3-8.2) L D 08/06/16 04:00 Albumin 2.5 g/dL (3.9-5) L 08/06/16 04:00 Albumin/Globulin Ratio 1.0 % 08/06/16 04:00 Urine Color Yellow (Yellow) 08/05/16 15:30 Urine Turbidity Clear (Clear) 08/05/16 15:30 Urine pH 5.0 (5.0-7.0) 08/05/16 15:30 Ur Specific [place] 1.020 (1.003-1.030) 08/05/16 15:30 Urine Protein 30 mg/dl mg/dL (Negative) 08/05/16 15:30 Urine Glucose (UA) Neg mg/dL (Negative) 08/05/16 15:30 Urine Ketones Tr mg/dL (Negative) 08/05/16 15:30 Urine Blood Mod (Negative) 08/05/16 15:30 Urine Nitrite Neg (Negative) 08/05/16 15:30 Urine Bilirubin Neg (Negative) 08/05/16 15:30 Urine Urobilinogen < 2.0 mg/dL (<2.0) 08/05/16 15:30 Ur Leukocyte Esterase Tr (Negative) 08/05/16 15:30 Urine WBC (Auto) 9.0 /HPF (0.0-6.0) H 08/05/16 15:30 Urine RBC (Auto) 1.0 /HPF (0.0-6.0) 08/05/16 15:30 U Epithel Cells (Auto) < 1.0 /HPF (0-13.0) 08/05/16 15:30 Urine Yeast (Budding) 1+ /HPF 08/05/16 15:30 Vancomycin Trough 10.2 ug/mL (5.0-20.0) 08/07/16 15:15 Salicylates 3.5 mg/dL (2.8-20.0) 08/05/16 03:49 Urine Opiates Screen Presumptive positive 08/05/16 01:06 Urine Methadone Screen Presumptive negative 08/05/16 01:06 Acetaminophen < 15.0 ug/mL (10.0-30.0) 08/05/16 00:06 Ur Barbiturates Screen Presumptive negative 08/05/16 01:06 Ur Phencyclidine Scrn Presumptive negative 08/05/16 01:06 Ur Amphetamines Screen Presumptive negative 08/05/16 01:06 U Benzodiazepines Scrn Presumptive negative 08/05/16 01:06 Urine Cocaine Screen Presumptive negative 08/05/16 01:06 U Marijuana (THC) Screen Presumptive negative 08/05/16 01:06 Drugs of Abuse Note Disclamer 08/05/16 01:06 Plasma/Serum Alcohol < 0.01 gm% (0-0.07) 08/05/16 00:06 Blood Type O POSITIVE 08/05/16 00:06 JACOB Antibody Screen Negative 08/05/16 00:06 Hypokalemia
--- NOTE | 2016-08-12 18:50 | Progress Note ---
Assessment and Plan Patient resting on 2 litres O2 says Breathing better.O2 saturation 96%. BIPAP standby. - Patient Problems (1) Acute respiratory failure Current Visit: Yes Status: Acute Qualifiers: Respiratory failure complication: hypoxia Qualified Code(s): J96.01 - Acute respiratory failure with hypoxia Plan to address problem: Patient resting on 2 litres O2. BIPAP standby. Albuterol/atrovent aerosol treatments q 6 hours. Continue prednisone. Continue Protonix. SCDs (2) COPD (chronic obstructive pulmonary disease) Current Visit: Yes Status: Acute Qualifiers: COPD type: C Chronic bronchitis type: C Emphysema type: E Plan to address problem: Patient resting on 2 litres O2. BIPAP standby. Albuterol/atrovent aerosol treatments q 6 hours. Continue prednisone. Continue Protonix. SCDs (3) Coronary artery disease Current Visit: Yes Status: Acute Qualifiers: Coronary Disease-Associated Artery/Lesion type: C [place] vs. transplanted heart: N Associated angina: A (4) GI bleed Current Visit: Yes Status: Acute Qualifiers: GI bleed type/associated pathology: G Gastritis type: G Plan to address problem: Management as per gastroenterology. (5) Overdose Current Visit: Yes Status: Acute Qualifiers: Encounter type: E Injury intent: I Plan to address problem: Management as per primary care. Recommend to consult Psychiatry. Subjective Date of service: 08/12/16 Principal diagnosis: GI bleed Interval history: Patient resting on 2 litres O2 says Breathing better.O2 saturation 96%. BIPAP standby. Objective Vital Signs - 12hr 08/12/16 08/12/16 08/12/16 09:51 10:00 13:21 Temperature 97.4 F L 98.0 F Pulse Rate Pulse Rate [ 81 68 Apical] Pulse Rate [ 81 69 Left Dorsalis Pedis] Pulse Rate [ 81 69 Left Radial] Pulse Rate [ 81 69 Right Dorsalis Pedis] Pulse Rate [ 81 69 Right Radial] Respiratory 18 18 Rate Blood Pressure 174/89 174/86 [Left Arm] O2 Sat by Pulse 96 Oximetry 08/12/16 08/12/16 17:06 18:27 Temperature 97.7 F Pulse Rate 120 H Pulse Rate [ 118 H Apical] Pulse Rate [ 118 H Left Dorsalis Pedis] Pulse Rate [ 118 H Left Radial] Pulse Rate [ 118 H Right Dorsalis Pedis] Pulse Rate [ 118 H Right Radial] Respiratory 20 Rate Blood Pressure 135/85 [Left Arm] O2 Sat by Pulse Oximetry Constitutional: no acute distress, alert Eyes: non-icteric ENT: oropharynx moist Neck: supple, no lymphadenopathy, no JVD Effort: normal Ascultation: Bilateral: diminished breath sounds, rhonchi Cardiovascular: regular rate and rhythm Gastrointestinal: normoactive bowel sounds, soft, non-tender, non-distended Integumentary: normal Extremities: no cyanosis, no edema, pink and warm, pulses normal, no ischemia or petechiae Neurologic: other (intubated, sedated) Psychiatric: other (unable to assess) CBC and BMP: 08/12/16 06:41 08/12/16 06:41 ABG, PT/INR, D-dimer: ABG POC ABG pH 7.448 (7.35-7.45) 08/10/16 11:58 POC ABG pCO2 48.8 (35-45) H 08/10/16 11:58 POC ABG pO2 126 (80-105) H 08/10/16 11:58 POC ABG HCO3 33.8 08/10/16 11:58 POC ABG Total CO2 35 08/10/16 11:58 POC ABG O2 Sat 99 08/10/16 11:58 PT/INR, D-dimer PT 15.7 Sec. (12.2-14.9) H 08/05/16 00:06 INR 1.26 (0.87-1.13) H 08/05/16 00:06 Abnormal lab findings: Abnormal Labs 08/05/16 08/05/16 08/05/16 03:41 03:49 03:50 WBC RBC Hgb 8.8 L Hct MCV MCH MCHC RDW Plt Count Lymph % (Auto) [place] % (Auto) Lymph # [place] # Seg Neutrophils % Seg Neuts % (Manual) Lymphocytes % (Manual) Nucleated RBC % Seg Neutrophils # Seg Neutrophils # Man Lymphocytes # (Manual) POC ABG pH 7.269 L 7.269 L POC ABG pCO2 POC ABG pO2 32 L Sodium Potassium Chloride Carbon Dioxide Creatinine Glucose POC Glucose Calcium Total Protein Albumin Urine WBC (Auto) 08/05/16 08/05/16 08/05/16 07:15 10:16 14:35 WBC RBC Hgb 9.0 L 9.1 L 9.5 L Hct MCV MCH MCHC RDW Plt Count Lymph % (Auto) [place] % (Auto) Lymph # [place] # Seg Neutrophils % Seg Neuts % (Manual) Lymphocytes % (Manual) Nucleated RBC % Seg Neutrophils # Seg Neutrophils # Man Lymphocytes # (Manual) POC ABG pH POC ABG pCO2 POC ABG pO2 Sodium Potassium Chloride Carbon Dioxide Creatinine Glucose POC Glucose Calcium Total Protein Albumin Urine WBC (Auto) 08/05/16 08/06/16 08/06/16 15:30 04:00 04:45 WBC RBC Hgb Hct MCV MCH MCHC RDW Plt Count Lymph % (Auto) [place] % (Auto) Lymph # [place] # Seg Neutrophils % Seg Neuts % (Manual) Lymphocytes % (Manual) Nucleated RBC % Seg Neutrophils # Seg Neutrophils # Man Lymphocytes # (Manual) POC ABG pH POC ABG pCO2 POC ABG pO2 69 L Sodium 150 H Potassium 3.2 L Chloride 116.6 H Carbon Dioxide 21 L Creatinine 0.4 L D Glucose 107 H POC Glucose Calcium 7.9 L Total Protein 5.1 L D Albumin 2.5 L Urine WBC (Auto) 9.0 H 08/07/16 08/07/16 08/07/16 04:00 04:00 04:45 WBC RBC Hgb 7.6 L Hct 26.3 L D MCV 71 L MCH 21 L MCHC 29 L RDW 21.1 H Plt Count Lymph % (Auto) 5.8 L [place] % (Auto) Lymph # 0.5 L [place] # Seg Neutrophils % 87.7 H Seg Neuts % (Manual) Lymphocytes % (Manual) Nucleated RBC % Seg Neutrophils # Seg Neutrophils # Man Lymphocytes # (Manual) POC ABG pH POC ABG pCO2 POC ABG pO2 58 L Sodium 148 H Potassium 3.3 L Chloride 114.1 H Carbon Dioxide Creatinine 0.4 L Glucose 112 H POC Glucose Calcium 8.3 L Total Protein Albumin Urine WBC (Auto) 08/07/16 08/07/16 08/07/16 12:23 15:15 17:59 WBC RBC Hgb 7.7 L Hct 26.7 L MCV 70 L MCH 20 L MCHC 29 L RDW 21.0 H Plt Count 137 L Lymph % (Auto) [place] % (Auto) Lymph # [place] # Seg Neutrophils % Seg Neuts % (Manual) Lymphocytes % (Manual) Nucleated RBC % Seg Neutrophils # Seg Neutrophils # Man Lymphocytes # (Manual) POC ABG pH POC ABG pCO2 POC ABG pO2 Sodium Potassium Chloride Carbon Dioxide Creatinine Glucose POC Glucose 106 H 141 H Calcium Total Protein Albumin Urine WBC (Auto) 08/07/16 08/08/16 08/08/16 23:25 05:28 05:52 WBC RBC Hgb Hct MCV MCH MCHC RDW Plt Count Lymph % (Auto) [place] % (Auto) Lymph # [place] # Seg Neutrophils % Seg Neuts % (Manual) Lymphocytes % (Manual) Nucleated RBC % Seg Neutrophils # Seg Neutrophils # Man Lymphocytes # (Manual) POC ABG pH POC ABG pCO2 POC ABG pO2 73 L Sodium Potassium Chloride Carbon Dioxide Creatinine Glucose POC Glucose 127 H 131 H Calcium Total Protein Albumin Urine WBC (Auto) 08/08/16 08/08/16 08/08/16 06:00 06:00 12:38 WBC RBC Hgb 7.8 L Hct 27.0 L MCV 71 L MCH 20 L MCHC 29 L RDW 20.5 H Plt Count Lymph % (Auto) [place] % (Auto) Lymph # [place] # Seg Neutrophils % Seg Neuts % (Manual) 95.0 H Lymphocytes % (Manual) 1.0 L Nucleated RBC % 1.0 H Seg Neutrophils # Seg Neutrophils # Man 8.6 H Lymphocytes # (Manual) 0.1 L POC ABG pH POC ABG pCO2 POC ABG pO2 Sodium 147 H Potassium Chloride 113.7 H Carbon Dioxide Creatinine 0.3 L Glucose 138 H POC Glucose 146 H Calcium 8.0 L Total Protein Albumin Urine WBC (Auto) 08/08/16 08/08/16 08/09/16 17:48 23:50 05:13 WBC RBC Hgb Hct MCV MCH MCHC RDW Plt Count Lymph % (Auto) [place] % (Auto) Lymph # [place] # Seg Neutrophils % Seg Neuts % (Manual) Lymphocytes % (Manual) Nucleated RBC % Seg Neutrophils # Seg Neutrophils # Man Lymphocytes # (Manual) POC ABG pH 7.455 H POC ABG pCO2 32.9 L POC ABG pO2 67 L Sodium Potassium Chloride Carbon Dioxide Creatinine Glucose POC Glucose 143 H 119 H Calcium Total Protein Albumin Urine WBC (Auto) 08/09/16 08/09/16 08/09/16 05:57 06:20 06:20 WBC RBC Hgb 8.3 L Hct 27.7 L MCV 70 L MCH 21 L MCHC RDW 20.2 H Plt Count 127 L Lymph % (Auto) 5.8 L [place] % (Auto) Lymph # 0.4 L [place] # Seg Neutrophils % 87.5 H Seg Neuts % (Manual) Lymphocytes % (Manual) Nucleated RBC % Seg Neutrophils # Seg Neutrophils # Man Lymphocytes # (Manual) POC ABG pH POC ABG pCO2 POC ABG pO2 Sodium Potassium Chloride 107.9 H Carbon Dioxide Creatinine 0.3 L Glucose 140 H POC Glucose 159 H Calcium 8.2 L Total Protein Albumin Urine WBC (Auto) 08/09/16 08/09/16 08/10/16 12:03 17:47 00:01 WBC RBC Hgb Hct MCV MCH MCHC RDW Plt Count Lymph % (Auto) [place] % (Auto) Lymph # [place] # Seg Neutrophils % Seg Neuts % (Manual) Lymphocytes % (Manual) Nucleated RBC % Seg Neutrophils # Seg Neutrophils # Man Lymphocytes # (Manual) POC ABG pH POC ABG pCO2 POC ABG pO2 Sodium Potassium Chloride Carbon Dioxide Creatinine Glucose POC Glucose 156 H 128 H 145 H Calcium Total Protein Albumin Urine WBC (Auto) 08/10/16 08/10/16 08/10/16 04:46 05:32 08:30 WBC RBC Hgb Hct MCV MCH MCHC RDW Plt Count Lymph % (Auto) [place] % (Auto) Lymph # [place] # Seg Neutrophils % Seg Neuts % (Manual) Lymphocytes % (Manual) Nucleated RBC % Seg Neutrophils # Seg Neutrophils # Man Lymphocytes # (Manual) POC ABG pH 7.454 H POC ABG pCO2 POC ABG pO2 72 L Sodium Potassium Chloride Carbon Dioxide Creatinine 0.4 L Glucose 135 H POC Glucose 142 H Calcium Total Protein Albumin Urine WBC (Auto) 08/10/16 08/10/16 08/10/16 10:00 11:58 12:33 WBC 12.2 H RBC 5.09 H Hgb Hct MCV 70 L MCH 20 L MCHC 29 L RDW 20.9 H Plt Count Lymph % (Auto) [place] % (Auto) Lymph # [place] # Seg Neutrophils % Seg Neuts % (Manual) Lymphocytes % (Manual) Nucleated RBC % Seg Neutrophils # Seg Neutrophils # Man Lymphocytes # (Manual) POC ABG pH POC ABG pCO2 48.8 H POC ABG pO2 126 H Sodium Potassium Chloride Carbon Dioxide Creatinine Glucose POC Glucose 156 H Calcium Total Protein Albumin Urine WBC (Auto) 08/10/16 08/10/16 08/11/16 17:35 23:33 04:00 WBC 12.6 H RBC Hgb 9.2 L Hct MCV 70 L MCH 20 L MCHC 29 L RDW 20.3 H Plt Count Lymph % (Auto) 5.5 L [place] % (Auto) 8.6 H Lymph # 0.7 L [place] # 1.1 H Seg Neutrophils % 85.8 H Seg Neuts % (Manual) Lymphocytes % (Manual) Nucleated RBC % Seg Neutrophils # 10.8 H Seg Neutrophils # Man Lymphocytes # (Manual) POC ABG pH POC ABG pCO2 POC ABG pO2 Sodium Potassium Chloride Carbon Dioxide Creatinine Glucose POC Glucose 149 H 108 H Calcium Total Protein Albumin Urine WBC (Auto) 08/11/16 08/12/16 08/12/16 04:00 06:41 06:41 WBC 13.5 H RBC Hgb 9.3 L Hct MCV 69 L MCH 20 L MCHC RDW 20.2 H Plt Count Lymph % (Auto) 8.0 L [place] % (Auto) 15.3 H Lymph # 1.1 L [place] # 2.1 H Seg Neutrophils % 76.6 H Seg Neuts % (Manual) Lymphocytes % (Manual) Nucleated RBC % Seg Neutrophils # 10.4 H Seg Neutrophils # Man Lymphocytes # (Manual) POC ABG pH POC ABG pCO2 POC ABG pO2 Sodium Potassium 3.2 L Chloride Carbon Dioxide Creatinine 0.2 L 0.3 L Glucose POC Glucose Calcium 8.2 L 7.9 L Total Protein Albumin Urine WBC (Auto) 08/12/16 08/12/16 12:13 16:26 WBC RBC Hgb Hct MCV MCH MCHC RDW Plt Count Lymph % (Auto) [place] % (Auto) Lymph # [place] # Seg Neutrophils % Seg Neuts % (Manual) Lymphocytes % (Manual) Nucleated RBC % Seg Neutrophils # Seg Neutrophils # Man Lymphocytes # (Manual) POC ABG pH POC ABG pCO2 POC ABG pO2 Sodium Potassium Chloride Carbon Dioxide Creatinine Glucose POC Glucose 134 H 176 H Calcium Total Protein Albumin Urine WBC (Auto) Chest x-ray: report reviewed (Improvement in CHF.) Allied health notes reviewed: RT
[2016-08-13] MEDS: LOPRESSOR PO SCH ×5 (00:58→23:14)
[2016-08-13] MEDS ORDERED: ATROVENT IH SCH (02:00)
[2016-08-13] MEDS ORDERED: PROVENTIL IH SCH (02:00)
[2016-08-13] MEDS: DUONEB *Not for PRN Use IH SCH ×4 (02:01→22:59)
[2016-08-13 06:58] LABS: Basophils % (Auto) 0.1 % (0.0-1.8); Eosinophils % (Auto) 1.5 % (0.0-4.3); Mean Corpuscular HGB Conc 29 % (30-34); Platelet Count 176 K/mm3 (140-440); Red Blood Count 4.23 M/mm3 (3.65-5.03); White Blood Count 12.2 K/mm3 (4.5-11.0)
[2016-08-13 07:10] LABS: Hematocrit 29.6 % (30.3-42.9); Hemoglobin 8.4 gm/dl (10.1-14.3); Mean Corpuscular Hemoglobin 20 pg (28-32); Mean Corpuscular Volume 70 fl (79-97); Red Cell Distribution Width 20.5 % (13.2-15.2)
[2016-08-13 07:12] LABS: Anion Gap 16 mmol/L; Blood Urea Nitrogen 11 mg/dL (7-17); Calcium 8.2 mg/dL (8.4-10.2); Carbon Dioxide 27 mmol/L (22-30); Chloride 100.4 mmol/L (98-107); Glucose 84 mg/dL (65-100); Sodium 140 mmol/L (137-145)
[2016-08-13 07:30] LABS: Potassium 2.9 mmol/L (3.6-5.0)
--- NOTE | 2016-08-13 10:13 | Progress Note ---
Assessment and Plan Acute respiratory failure Resolved Possible overdose SIRS Abnormal ECG ECG shows Q waves and inferior ST elevation which likely represents the inferior STEMI of 3 months ago, with persistence of ECG abnormalities. Coronary artery disease There is chronic occlusion of the distal right coronary artery, with unsuccessful angioplasty 3 months ago at [facility]. In addition, there is mid LAD stenosis which was treated successfully last month (06/26) with a bare metal stent at [facility]. Mild Cardiomyopathy EF 40-45% on echo 06/2016 Hx of COPD Coffee ground emesis and melena with evidence of a drop in Hb Paroxysmal afib with RVR - new onset Recommendations: Discontinue plavix given ongoing melena and drop in hemoglobin Patient has completed 1 month of DAPT post BMS GI evaluation Will continue to follow Subjective Date of service: 08/13/16 Principal diagnosis: GI bleed Interval history: Patient continues to report coffee ground colored stools. She denies chest pain Objective Vital Signs Temp Pulse Pulse Pulse Pulse Pulse Pulse 08/13/16 09:46 108 H 08/13/16 09:35 97.8 F 79 79 79 79 08/13/16 08:00 110 H 08/13/16 06:41 87 08/13/16 06:28 97.8 F 0 L 0 L 0 L 0 L 08/13/16 02:20 85 08/13/16 02:03 83 08/13/16 02:02 83 08/13/16 01:22 97.4 F L 0 L 0 L 0 L 0 L 08/13/16 00:58 112 H 08/12/16 22:20 08/12/16 22:00 100 H 08/12/16 21:14 97.6 F 0 L 0 L 0 L 0 L 08/12/16 18:27 120 H 08/12/16 17:06 97.7 F 118 H 118 H 118 H 118 H 08/12/16 13:21 98.0 F 68 69 69 69 Pulse Resp Resp BP BP BP Pulse Ox 08/13/16 09:46 18 98 08/13/16 09:35 79 18 149/74 149/74 08/13/16 08:00 17 08/13/16 06:41 136/74 08/13/16 06:28 87 20 0/0 136/76 99 08/13/16 02:20 24 08/13/16 02:03 24 97 08/13/16 02:02 24 08/13/16 01:22 112 H 20 0/0 151/67 98 08/13/16 00:58 151/67 08/12/16 22:20 22 08/12/16 22:00 100 08/12/16 21:14 97 H 20 0/0 162/80 98 08/12/16 18:27 08/12/16 17:06 118 H 20 135/85 08/12/16 13:21 69 18 174/86 - Physical Examination General: No Apparent Distress HEENT: Positive: PERRL Neck: Positive: trachea midline Cardiac: Positive: Reg Rate and Rhythm Lungs: Positive: Decreased Breath Sounds Neuro: Positive: Grossly Intact Abdomen: Positive: Unremarkable, Soft Skin: Positive: Clear Extremities: Absent: edema - Labs and Meds CBC 08/13/16 Range/Units 06:41 WBC 12.2 H (4.5-11.0) K/mm3 RBC 4.23 (3.65-5.03) M/mm3 Hgb 8.4 L (10.1-14.3) gm/dl Hct 29.6 L (30.3-42.9) % Plt Count 176 (140-440) K/mm3 Lymph # 1.8 (1.2-5.4) K/mm3 Lamar # 1.9 H (0.0-0.8) K/mm3 Eos # 0.2 (0.0-0.4) K/mm3 Baso # 0.0 (0.0-0.1) K/mm3 Comprehensive Metabolic Panel 08/13/16 Range/Units 06:41 Sodium 140 (137-145) mmol/L Potassium 2.9 L* (3.6-5.0) mmol/L Chloride 100.4 (98-107) mmol/L Carbon Dioxide 27 (22-30) mmol/L BUN 11 (7-17) mg/dL Creatinine 0.4 L (0.7-1.2) mg/dL Glucose 84 (65-100) mg/dL Calcium 8.2 L (8.4-10.2) mg/dL - Imaging and Cardiology EKG: image reviewed - Allied health notes Allied health notes reviewed: RT
--- NOTE | 2016-08-13 10:33 | Gastroenterology Progress Note ---
Assessment and Plan 1. Microcytic anemia 2. H/o PUD 3. respiratory failure -EGD on hold given low potassium and as patient ate this morning. replete potassium per primary team -will plan for EGD tomorrow, npo at midnight -last colonoscopy in 2009 with tics. if source of anemia not seen on EGD, will need colonoscopy (inpt vs outpt depending on clinical course/progress) Subjective Date of service: 08/13/16 Principal diagnosis: GI bleed Interval history: pt seen and examined. potassium low this morning and patient ate this morning so EGD is on hold. No reported bleeding episodes per pt and pt's nurse. Objective - Exam Narrative Exam: Gen: obese female, NAD CV: RRR Lungs: bilateral coarse bs, non labored Abd: soft, nt, nd, +bs - Constitutional Vitals: Temp Pulse Resp BP Pulse Ox 97.8 F 108 H 18 149/74 98 08/13/16 09:35 08/13/16 09:46 08/13/16 09:46 08/13/16 09:35 08/13/16 09:46 - Labs CBC & Chem 7: 08/13/16 06:41 08/13/16 06:41 Labs: Laboratory Results - last 24 hr 08/12/16 08/12/16 08/12/16 08:07 12:13 16:26 WBC RBC Hgb Hct MCV MCH MCHC RDW Plt Count Lymph % (Auto) [place] % (Auto) Eos % (Auto) Baso % (Auto) Lymph # [place] # Eos # Baso # Seg Neutrophils % Seg Neutrophils # Sodium Potassium Chloride Carbon Dioxide Anion Gap BUN Creatinine Estimated GFR BUN/Creatinine Ratio Glucose POC Glucose 89 134 H 176 H Calcium 08/12/16 08/13/16 08/13/16 21:52 06:41 06:41 WBC 12.2 H RBC 4.23 Hgb 8.4 L Hct 29.6 L MCV 70 L MCH 20 L MCHC 29 L RDW 20.5 H Plt Count 176 Lymph % (Auto) 15.0 [place] % (Auto) 15.5 H Eos % (Auto) 1.5 Baso % (Auto) 0.1 Lymph # 1.8 [place] # 1.9 H Eos # 0.2 Baso # 0.0 Seg Neutrophils % 67.9 Seg Neutrophils # 8.3 H Sodium 140 Potassium 2.9 L* Chloride 100.4 Carbon Dioxide 27 Anion Gap 16 BUN 11 Creatinine 0.4 L Estimated GFR > 60 BUN/Creatinine Ratio 27.50 Glucose 84 POC Glucose 101 Calcium 8.2 L
[2016-08-13] MEDS: DELTASONE PO SCH (10:52)
[2016-08-13] MEDS: HABITROL TD SCH (10:52)
[2016-08-13] MEDS: HALFPRIN EC PO SCH (10:52)
[2016-08-13] MEDS: ZESTRIL PO SCH (10:52)
[2016-08-13] MEDS: PROTONIX FEEDTUBE SCH (10:53)
--- NOTE | 2016-08-13 13:16 | Progress Note ---
Assessment and Plan Assessment and plan: Acute respiratory failure- resolved Drug overdose SIRS with hypotension COPD CHF CAD Cardiomyopathy Anemia GI bleed - Hypokalemia repleted - Patient has mild shortness of breath on exertion - IV antibiotics and IV fluids discontinued - Blood, urine and tracheal aspirate cultures are negative - Cardiology and pulmonary consult appreciated - GI was consulted and will do EGD tomorrow - Patient is on pantoprazole - We will consult psychiatric for overdose Prophylaxis - Mechanical because of coffee-ground emesis Disposition - Considered to discharge after EGD. History Interval history: Patient was seen and evaluated this morning, no new compliants, alert and oriented. Hospitalist Physical - Physical exam Narrative exam: Patient is not in cardiopulmonary distress. The patient appeared well nourished and normally developed. Vital signs as documented. Head exam is unremarkable. No scleral icterus . Neck is without jugular venous distension, thyromegaly, or carotid bruits. Lungs are clear to auscultation. Cardiac exam reveals regular rate and Rhythm. First and second heart sounds normal. No murmurs, rubs or gallops. Abdominal exam reveals normal bowel sounds, no masses, no organomegaly and no aortic enlargement. Extremities are nonedematous and both femoral and pedal pulses are normal. ALGEBRAIST: Alert and oriented - Constitutional Vitals: Temp Pulse Resp BP Pulse Ox 97.8 F 108 H 18 149/74 98 08/13/16 09:35 08/13/16 09:46 08/13/16 09:46 08/13/16 09:35 08/13/16 09:46 General appearance: Present: other (patient is unresponsive on the vent) Results - Labs CBC & Chem 7: 08/13/16 06:41 08/13/16 06:41 Labs: Laboratory Last Values WBC 12.2 K/mm3 (4.5-11.0) H 08/13/16 06:41 RBC 4.23 M/mm3 (3.65-5.03) 08/13/16 06:41 Hgb 8.4 gm/dl (10.1-14.3) L 08/13/16 06:41 Hct 29.6 % (30.3-42.9) L 08/13/16 06:41 MCV 70 fl (79-97) L 08/13/16 06:41 MCH 20 pg (28-32) L 08/13/16 06:41 MCHC 29 % (30-34) L 08/13/16 06:41 RDW 20.5 % (13.2-15.2) H 08/13/16 06:41 Plt Count 176 K/mm3 (140-440) 08/13/16 06:41 Lymph % (Auto) 15.0 % (13.4-35.0) 08/13/16 06:41 [place] % (Auto) 15.5 % (0.0-7.3) H 08/13/16 06:41 Eos % (Auto) 1.5 % (0.0-4.3) 08/13/16 06:41 Baso % (Auto) 0.1 % (0.0-1.8) 08/13/16 06:41 Lymph # 1.8 K/mm3 (1.2-5.4) 08/13/16 06:41 [place] # 1.9 K/mm3 (0.0-0.8) H 08/13/16 06:41 Eos # 0.2 K/mm3 (0.0-0.4) 08/13/16 06:41 Baso # 0.0 K/mm3 (0.0-0.1) 08/13/16 06:41 Add Manual Diff TNR 08/10/16 06:00 Total Counted 100 08/08/16 06:00 Seg Neutrophils % 67.9 % (40.0-70.0) 08/13/16 06:41 Seg Neuts % (Manual) 95.0 % (40.0-70.0) H 08/08/16 06:00 Band Neutrophils % 0 % 08/08/16 06:00 Lymphocytes % (Manual) 1.0 % (13.4-35.0) L 08/08/16 06:00 Reactive Lymphs % (Man) 0 % 08/08/16 06:00 Monocytes % (Manual) 4.0 % (0.0-7.3) 08/08/16 06:00 Eosinophils % (Manual) 0 % (0.0-4.3) 08/08/16 06:00 Basophils % (Manual) 0 % (0.0-1.8) 08/08/16 06:00 Metamyelocytes % 0 % 08/08/16 06:00 Myelocytes % 0 % 08/08/16 06:00 Promyelocytes % 0 % 08/08/16 06:00 Blast Cells % 0 % 08/08/16 06:00 Nucleated RBC % 1.0 % (0.0-0.9) H 08/08/16 06:00 Seg Neutrophils # 8.3 K/mm3 (1.8-7.7) H 08/13/16 06:41 Seg Neutrophils # Man 8.6 K/mm3 (1.8-7.7) H 08/08/16 06:00 Band Neutrophils # 0.0 K/mm3 08/08/16 06:00 Lymphocytes # (Manual) 0.1 K/mm3 (1.2-5.4) L 08/08/16 06:00 Abs React Lymphs (Man) 0.0 K/mm3 08/08/16 06:00 Monocytes # (Manual) 0.4 K/mm3 (0.0-0.8) 08/08/16 06:00 Eosinophils # (Manual) 0.0 K/mm3 (0.0-0.4) 08/08/16 06:00 Basophils # (Manual) 0.0 K/mm3 (0.0-0.1) 08/08/16 06:00 Metamyelocytes # 0.0 K/mm3 08/08/16 06:00 Myelocytes # 0.0 K/mm3 08/08/16 06:00 Promyelocytes # 0.0 K/mm3 08/08/16 06:00 Blast Cells # 0.0 K/mm3 08/08/16 06:00 WBC Morphology Not Reportable 08/08/16 06:00 Hypersegmented Neuts Not Reportable 08/08/16 06:00 Hyposegmented Neuts Not Reportable 08/08/16 06:00 Hypogranular Neuts Not Reportable 08/08/16 06:00 Smudge Cells Not Reportable 08/08/16 06:00 Toxic Granulation Not Reportable 08/08/16 06:00 Toxic Vacuolation Not Reportable 08/08/16 06:00 Dohle Bodies Not Reportable 08/08/16 06:00 Pelger-Huet Anomaly Not Reportable 08/08/16 06:00 Neha Rods Not Reportable 08/08/16 06:00 Platelet Estimate Appears normal 08/08/16 06:00 Clumped Platelets Not Reportable 08/08/16 06:00 Plt Clumps, EDTA Not Reportable 08/08/16 06:00 Large Platelets Not Reportable 08/08/16 06:00 Giant Platelets Not Reportable 08/08/16 06:00 Platelet Satelliting Not Reportable 08/08/16 06:00 Plt Morphology Comment Not Reportable 08/08/16 06:00 RBC Morphology Not Reportable 08/08/16 06:00 Dimorphic RBCs Not Reportable 08/08/16 06:00 Polychromasia Not Reportable 08/08/16 06:00 Hypochromasia 2+ 08/08/16 06:00 Poikilocytosis Not Reportable 08/08/16 06:00 Anisocytosis 1+ 08/08/16 06:00 Microcytosis Not Reportable 08/08/16 06:00 Macrocytosis Not Reportable 08/08/16 06:00 Spherocytes Not Reportable 08/08/16 06:00 Pappenheimer Bodies Not Reportable 08/08/16 06:00 Sickle Cells Not Reportable 08/08/16 06:00 Target Cells Not Reportable 08/08/16 06:00 Tear Drop Cells Not Reportable 08/08/16 06:00 Ovalocytes Not Reportable 08/08/16 06:00 Helmet Cells Not Reportable 08/08/16 06:00 [place] Bodies Not Reportable 08/08/16 06:00 [place] Rings Not Reportable 08/08/16 06:00 [place] Cells Not Reportable 08/08/16 06:00 Bite Cells Not Reportable 08/08/16 06:00 Crenated Cell Not Reportable 08/08/16 06:00 Elliptocytes Not Reportable 08/08/16 06:00 Acanthocytes (Spur) Not Reportable 08/08/16 06:00 Rouleaux Not Reportable 08/08/16 06:00 Hemoglobin C Crystals Not Reportable 08/08/16 06:00 Schistocytes Not Reportable 08/08/16 06:00 Malaria parasites Not Reportable 08/08/16 06:00 Hernan Bodies Not Reportable 08/08/16 06:00 Hem Pathologist Commnt No 08/08/16 06:00 PT 15.7 Sec. (12.2-14.9) H 08/05/16 00:06 INR 1.26 (0.87-1.13) H 08/05/16 00:06 APTT 40.4 Sec. (24.2-36.6) H 08/05/16 00:06 POC ABG pH 7.448 (7.35-7.45) 08/10/16 11:58 POC ABG pCO2 48.8 (35-45) H 08/10/16 11:58 POC ABG pO2 126 (80-105) H 08/10/16 11:58 POC ABG HCO3 33.8 08/10/16 11:58 POC ABG Total CO2 35 08/10/16 11:58 POC ABG O2 Sat 99 08/10/16 11:58 POC ABG Base Excess 10 08/10/16 11:58 FiO2 50 % 08/10/16 11:58 Sodium 140 mmol/L (137-145) 08/13/16 06:41 Potassium 2.9 mmol/L (3.6-5.0) L* 08/13/16 06:41 Chloride 100.4 mmol/L (98-107) 08/13/16 06:41 Carbon Dioxide 27 mmol/L (22-30) 08/13/16 06:41 Anion Gap 16 mmol/L 08/13/16 06:41 BUN 11 mg/dL (7-17) 08/13/16 06:41 Creatinine 0.4 mg/dL (0.7-1.2) L 08/13/16 06:41 Estimated GFR > 60 ml/min 08/13/16 06:41 BUN/Creatinine Ratio 27.50 % 08/13/16 06:41 Glucose 84 mg/dL (65-100) 08/13/16 06:41 POC Glucose 101 (70-105) 08/12/16 21:52 Lactic Acid 1.10 mmol/L (0.7-2.0) 08/05/16 03:49 Calcium 8.2 mg/dL (8.4-10.2) L 08/13/16 06:41 Total Bilirubin 0.30 mg/dL (0.1-1.2) 08/06/16 04:00 AST 17 units/L (5-40) 08/06/16 04:00 ALT 8 units/L (7-56) 08/06/16 04:00 Alkaline Phosphatase 63 units/L (35-129) 08/06/16 04:00 Total Creatine Kinase 76 units/L (30-135) 08/05/16 07:15 CK-MB (CK-2) 2.0 ng/mL (0.0-4.0) 08/05/16 07:15 CK-MB (CK-2) Rel Index 2.6 (0-4) 08/05/16 07:15 Troponin T < 0.010 ng/mL (0.00-0.029) 08/05/16 07:15 Total Protein 5.1 g/dL (6.3-8.2) L D 08/06/16 04:00 Albumin 2.5 g/dL (3.9-5) L 08/06/16 04:00 Albumin/Globulin Ratio 1.0 % 08/06/16 04:00 Urine Color Yellow (Yellow) 08/05/16 15:30 Urine Turbidity Clear (Clear) 08/05/16 15:30 Urine pH 5.0 (5.0-7.0) 08/05/16 15:30 Ur Specific [place] 1.020 (1.003-1.030) 08/05/16 15:30 Urine Protein 30 mg/dl mg/dL (Negative) 08/05/16 15:30 Urine Glucose (UA) Neg mg/dL (Negative) 08/05/16 15:30 Urine Ketones Tr mg/dL (Negative) 08/05/16 15:30 Urine Blood Mod (Negative) 08/05/16 15:30 Urine Nitrite Neg (Negative) 08/05/16 15:30 Urine Bilirubin Neg (Negative) 08/05/16 15:30 Urine Urobilinogen < 2.0 mg/dL (<2.0) 08/05/16 15:30 Ur Leukocyte Esterase Tr (Negative) 08/05/16 15:30 Urine WBC (Auto) 9.0 /HPF (0.0-6.0) H 08/05/16 15:30 Urine RBC (Auto) 1.0 /HPF (0.0-6.0) 08/05/16 15:30 U Epithel Cells (Auto) < 1.0 /HPF (0-13.0) 08/05/16 15:30 Urine Yeast ([place]) 1+ /HPF 08/05/16 15:30 Vancomycin Trough 10.2 ug/mL (5.0-20.0) 08/07/16 15:15 Salicylates 3.5 mg/dL (2.8-20.0) 08/05/16 03:49 Urine Opiates Screen Presumptive positive 08/05/16 01:06 Urine Methadone Screen Presumptive negative 08/05/16 01:06 Acetaminophen < 15.0 ug/mL (10.0-30.0) 08/05/16 00:06 Ur Barbiturates Screen Presumptive negative 08/05/16 01:06 Ur Phencyclidine Scrn Presumptive negative 08/05/16 01:06 Ur Amphetamines Screen Presumptive negative 08/05/16 01:06 U Benzodiazepines Scrn Presumptive negative 08/05/16 01:06 Urine Cocaine Screen Presumptive negative 08/05/16 01:06 U Marijuana (THC) Screen Presumptive negative 08/05/16 01:06 Drugs of Abuse Note Disclamer 08/05/16 01:06 Plasma/Serum Alcohol < 0.01 gm% (0-0.07) 08/05/16 00:06 Blood Type O POSITIVE 08/05/16 00:06 JACOB Antibody Screen Negative 08/05/16 00:06 Hypokalemia, repleted
[2016-08-13] MEDS ORDERED: K-DUR PO ONE (14:00)
--- NOTE | 2016-08-13 14:00 | Progress Note ---
Assessment and Plan Patient receiving aerosol treatment. On 2 litres O2 says Breathing better.O2 saturation 98%. BIPAP standby. - Patient Problems (1) Acute respiratory failure Current Visit: Yes Status: Acute Qualifiers: Respiratory failure complication: hypoxia Qualified Code(s): J96.01 - Acute respiratory failure with hypoxia Plan to address problem: Patient resting on 2 litres O2. BIPAP standby. Albuterol/atrovent aerosol treatments q 6 hours. Continue prednisone. Continue Protonix. SCDs (2) COPD (chronic obstructive pulmonary disease) Current Visit: Yes Status: Acute Qualifiers: COPD type: C Chronic bronchitis type: C Emphysema type: E Plan to address problem: Patient resting on 2 litres O2. BIPAP standby. Albuterol/atrovent aerosol treatments q 6 hours. Continue prednisone. Continue Protonix. SCDs (3) Coronary artery disease Current Visit: Yes Status: Acute Qualifiers: Coronary Disease-Associated Artery/Lesion type: C [place] vs. transplanted heart: N Associated angina: A (4) GI bleed Current Visit: Yes Status: Acute Qualifiers: GI bleed type/associated pathology: G Gastritis type: G Plan to address problem: Management as per gastroenterology. (5) Overdose Current Visit: Yes Status: Acute Qualifiers: Encounter type: E Injury intent: I Plan to address problem: Management as per primary care. Recommend to consult Psychiatry. (6) Hypokalemia Current Visit: Yes Status: Acute Plan to address problem: Supplemented KCL Repeat BMP. Subjective Date of service: 08/13/16 Principal diagnosis: GI bleed Interval history: Patient receiving aerosol treatment. On 2 litres O2 says Breathing better.O2 saturation 98%. BIPAP standby. Objective Vital Signs - 12hr 08/13/16 08/13/16 08/13/16 02:02 02:03 02:20 Temperature Pulse Rate 83 Pulse Rate [ 83 85 Anterior Bilateral Throughout] Pulse Rate [ Apical] Pulse Rate [ Left Dorsalis Pedis] Pulse Rate [ Left Radial] Pulse Rate [ Right Dorsalis Pedis] Pulse Rate [ Right Radial] Respiratory 24 Rate Respiratory 24 24 Rate [Anterior Bilateral Throughout] Blood Pressure Blood Pressure [Left Arm] Blood Pressure [Right Radial Artery] O2 Sat by Pulse 97 Oximetry 08/13/16 08/13/16 08/13/16 06:28 06:41 08:00 Temperature 97.8 F Pulse Rate 87 Pulse Rate [ 110 H Anterior Bilateral Throughout] Pulse Rate [ 0 L Apical] Pulse Rate [ 0 L Left Dorsalis Pedis] Pulse Rate [ 0 L Left Radial] Pulse Rate [ 0 L Right Dorsalis Pedis] Pulse Rate [ 87 Right Radial] Respiratory 20 Rate Respiratory 17 Rate [Anterior Bilateral Throughout] Blood Pressure 136/74 Blood Pressure 0/0 [Left Arm] Blood Pressure 136/76 [Right Radial Artery] O2 Sat by Pulse 99 Oximetry 08/13/16 08/13/16 08/13/16 09:35 09:46 10:00 Temperature 97.8 F Pulse Rate Pulse Rate [ 108 H Anterior Bilateral Throughout] Pulse Rate [ 79 Apical] Pulse Rate [ 79 Left Dorsalis Pedis] Pulse Rate [ 79 Left Radial] Pulse Rate [ 79 Right Dorsalis Pedis] Pulse Rate [ 79 Right Radial] Respiratory 18 20 Rate Respiratory 18 Rate [Anterior Bilateral Throughout] Blood Pressure Blood Pressure 149/74 [Left Arm] Blood Pressure 149/74 [Right Radial Artery] O2 Sat by Pulse 98 Oximetry Constitutional: no acute distress, alert Eyes: non-icteric ENT: oropharynx moist Neck: supple, no lymphadenopathy, no JVD Effort: normal Ascultation: Bilateral: diminished breath sounds, rhonchi Cardiovascular: regular rate and rhythm Gastrointestinal: normoactive bowel sounds, soft, non-tender, non-distended Integumentary: normal Extremities: no cyanosis, no edema, pink and warm, pulses normal, no ischemia or petechiae Neurologic: other (intubated, sedated) Psychiatric: other (unable to assess) CBC and BMP: 08/13/16 06:41 08/13/16 06:41 ABG, PT/INR, D-dimer: ABG POC ABG pH 7.448 (7.35-7.45) 08/10/16 11:58 POC ABG pCO2 48.8 (35-45) H 08/10/16 11:58 POC ABG pO2 126 (80-105) H 08/10/16 11:58 POC ABG HCO3 33.8 08/10/16 11:58 POC ABG Total CO2 35 08/10/16 11:58 POC ABG O2 Sat 99 08/10/16 11:58 PT/INR, D-dimer PT 15.7 Sec. (12.2-14.9) H 08/05/16 00:06 INR 1.26 (0.87-1.13) H 08/05/16 00:06 Abnormal lab findings: Abnormal Labs 08/05/16 08/05/16 08/05/16 03:41 03:49 03:50 WBC RBC Hgb 8.8 L Hct MCV MCH MCHC RDW Plt Count Lymph % (Auto) [place] % (Auto) Lymph # [place] # Seg Neutrophils % Seg Neuts % (Manual) Lymphocytes % (Manual) Nucleated RBC % Seg Neutrophils # Seg Neutrophils # Man Lymphocytes # (Manual) POC ABG pH 7.269 L 7.269 L POC ABG pCO2 POC ABG pO2 32 L Sodium Potassium Chloride Carbon Dioxide Creatinine Glucose POC Glucose Calcium Total Protein Albumin Urine WBC (Auto) 08/05/16 08/05/16 08/05/16 07:15 10:16 14:35 WBC RBC Hgb 9.0 L 9.1 L 9.5 L Hct MCV MCH MCHC RDW Plt Count Lymph % (Auto) [place] % (Auto) Lymph # [place] # Seg Neutrophils % Seg Neuts % (Manual) Lymphocytes % (Manual) Nucleated RBC % Seg Neutrophils # Seg Neutrophils # Man Lymphocytes # (Manual) POC ABG pH POC ABG pCO2 POC ABG pO2 Sodium Potassium Chloride Carbon Dioxide Creatinine Glucose POC Glucose Calcium Total Protein Albumin Urine WBC (Auto) 08/05/16 08/06/16 08/06/16 15:30 04:00 04:45 WBC RBC Hgb Hct MCV MCH MCHC RDW Plt Count Lymph % (Auto) [place] % (Auto) Lymph # [place] # Seg Neutrophils % Seg Neuts % (Manual) Lymphocytes % (Manual) Nucleated RBC % Seg Neutrophils # Seg Neutrophils # Man Lymphocytes # (Manual) POC ABG pH POC ABG pCO2 POC ABG pO2 69 L Sodium 150 H Potassium 3.2 L Chloride 116.6 H Carbon Dioxide 21 L Creatinine 0.4 L D Glucose 107 H POC Glucose Calcium 7.9 L Total Protein 5.1 L D Albumin 2.5 L Urine WBC (Auto) 9.0 H 08/07/16 08/07/16 08/07/16 04:00 04:00 04:45 WBC RBC Hgb 7.6 L Hct 26.3 L D MCV 71 L MCH 21 L MCHC 29 L RDW 21.1 H Plt Count Lymph % (Auto) 5.8 L [place] % (Auto) Lymph # 0.5 L [place] # Seg Neutrophils % 87.7 H Seg Neuts % (Manual) Lymphocytes % (Manual) Nucleated RBC % Seg Neutrophils # Seg Neutrophils # Man Lymphocytes # (Manual) POC ABG pH POC ABG pCO2 POC ABG pO2 58 L Sodium 148 H Potassium 3.3 L Chloride 114.1 H Carbon Dioxide Creatinine 0.4 L Glucose 112 H POC Glucose Calcium 8.3 L Total Protein Albumin Urine WBC (Auto) 08/07/16 08/07/16 08/07/16 12:23 15:15 17:59 WBC RBC Hgb 7.7 L Hct 26.7 L MCV 70 L MCH 20 L MCHC 29 L RDW 21.0 H Plt Count 137 L Lymph % (Auto) [place] % (Auto) Lymph # [place] # Seg Neutrophils % Seg Neuts % (Manual) Lymphocytes % (Manual) Nucleated RBC % Seg Neutrophils # Seg Neutrophils # Man Lymphocytes # (Manual) POC ABG pH POC ABG pCO2 POC ABG pO2 Sodium Potassium Chloride Carbon Dioxide Creatinine Glucose POC Glucose 106 H 141 H Calcium Total Protein Albumin Urine WBC (Auto) 08/07/16 08/08/16 08/08/16 23:25 05:28 05:52 WBC RBC Hgb Hct MCV MCH MCHC RDW Plt Count Lymph % (Auto) [place] % (Auto) Lymph # [place] # Seg Neutrophils % Seg Neuts % (Manual) Lymphocytes % (Manual) Nucleated RBC % Seg Neutrophils # Seg Neutrophils # Man Lymphocytes # (Manual) POC ABG pH POC ABG pCO2 POC ABG pO2 73 L Sodium Potassium Chloride Carbon Dioxide Creatinine Glucose POC Glucose 127 H 131 H Calcium Total Protein Albumin Urine WBC (Auto) 08/08/16 08/08/16 08/08/16 06:00 06:00 12:38 WBC RBC Hgb 7.8 L Hct 27.0 L MCV 71 L MCH 20 L MCHC 29 L RDW 20.5 H Plt Count Lymph % (Auto) [place] % (Auto) Lymph # [place] # Seg Neutrophils % Seg Neuts % (Manual) 95.0 H Lymphocytes % (Manual) 1.0 L Nucleated RBC % 1.0 H Seg Neutrophils # Seg Neutrophils # Man 8.6 H Lymphocytes # (Manual) 0.1 L POC ABG pH POC ABG pCO2 POC ABG pO2 Sodium 147 H Potassium Chloride 113.7 H Carbon Dioxide Creatinine 0.3 L Glucose 138 H POC Glucose 146 H Calcium 8.0 L Total Protein Albumin Urine WBC (Auto) 08/08/16 08/08/16 08/09/16 17:48 23:50 05:13 WBC RBC Hgb Hct MCV MCH MCHC RDW Plt Count Lymph % (Auto) [place] % (Auto) Lymph # [place] # Seg Neutrophils % Seg Neuts % (Manual) Lymphocytes % (Manual) Nucleated RBC % Seg Neutrophils # Seg Neutrophils # Man Lymphocytes # (Manual) POC ABG pH 7.455 H POC ABG pCO2 32.9 L POC ABG pO2 67 L Sodium Potassium Chloride Carbon Dioxide Creatinine Glucose POC Glucose 143 H 119 H Calcium Total Protein Albumin Urine WBC (Auto) 08/09/16 08/09/16 08/09/16 05:57 06:20 06:20 WBC RBC Hgb 8.3 L Hct 27.7 L MCV 70 L MCH 21 L MCHC RDW 20.2 H Plt Count 127 L Lymph % (Auto) 5.8 L [place] % (Auto) Lymph # 0.4 L [place] # Seg Neutrophils % 87.5 H Seg Neuts % (Manual) Lymphocytes % (Manual) Nucleated RBC % Seg Neutrophils # Seg Neutrophils # Man Lymphocytes # (Manual) POC ABG pH POC ABG pCO2 POC ABG pO2 Sodium Potassium Chloride 107.9 H Carbon Dioxide Creatinine 0.3 L Glucose 140 H POC Glucose 159 H Calcium 8.2 L Total Protein Albumin Urine WBC (Auto) 08/09/16 08/09/16 08/10/16 12:03 17:47 00:01 WBC RBC Hgb Hct MCV MCH MCHC RDW Plt Count Lymph % (Auto) [place] % (Auto) Lymph # [place] # Seg Neutrophils % Seg Neuts % (Manual) Lymphocytes % (Manual) Nucleated RBC % Seg Neutrophils # Seg Neutrophils # Man Lymphocytes # (Manual) POC ABG pH POC ABG pCO2 POC ABG pO2 Sodium Potassium Chloride Carbon Dioxide Creatinine Glucose POC Glucose 156 H 128 H 145 H Calcium Total Protein Albumin Urine WBC (Auto) 08/10/16 08/10/16 08/10/16 04:46 05:32 08:30 WBC RBC Hgb Hct MCV MCH MCHC RDW Plt Count Lymph % (Auto) [place] % (Auto) Lymph # [place] # Seg Neutrophils % Seg Neuts % (Manual) Lymphocytes % (Manual) Nucleated RBC % Seg Neutrophils # Seg Neutrophils # Man Lymphocytes # (Manual) POC ABG pH 7.454 H POC ABG pCO2 POC ABG pO2 72 L Sodium Potassium Chloride Carbon Dioxide Creatinine 0.4 L Glucose 135 H POC Glucose 142 H Calcium Total Protein Albumin Urine WBC (Auto) 08/10/16 08/10/16 08/10/16 10:00 11:58 12:33 WBC 12.2 H RBC 5.09 H Hgb Hct MCV 70 L MCH 20 L MCHC 29 L RDW 20.9 H Plt Count Lymph % (Auto) [place] % (Auto) Lymph # [place] # Seg Neutrophils % Seg Neuts % (Manual) Lymphocytes % (Manual) Nucleated RBC % Seg Neutrophils # Seg Neutrophils # Man Lymphocytes # (Manual) POC ABG pH POC ABG pCO2 48.8 H POC ABG pO2 126 H Sodium Potassium Chloride Carbon Dioxide Creatinine Glucose POC Glucose 156 H Calcium Total Protein Albumin Urine WBC (Auto) 08/10/16 08/10/16 08/11/16 17:35 23:33 04:00 WBC 12.6 H RBC Hgb 9.2 L Hct MCV 70 L MCH 20 L MCHC 29 L RDW 20.3 H Plt Count Lymph % (Auto) 5.5 L [place] % (Auto) 8.6 H Lymph # 0.7 L [place] # 1.1 H Seg Neutrophils % 85.8 H Seg Neuts % (Manual) Lymphocytes % (Manual) Nucleated RBC % Seg Neutrophils # 10.8 H Seg Neutrophils # Man Lymphocytes # (Manual) POC ABG pH POC ABG pCO2 POC ABG pO2 Sodium Potassium Chloride Carbon Dioxide Creatinine Glucose POC Glucose 149 H 108 H Calcium Total Protein Albumin Urine WBC (Auto) 08/11/16 08/12/16 08/12/16 04:00 06:41 06:41 WBC 13.5 H RBC Hgb 9.3 L Hct MCV 69 L MCH 20 L MCHC RDW 20.2 H Plt Count Lymph % (Auto) 8.0 L [place] % (Auto) 15.3 H Lymph # 1.1 L [place] # 2.1 H Seg Neutrophils % 76.6 H Seg Neuts % (Manual) Lymphocytes % (Manual) Nucleated RBC % Seg Neutrophils # 10.4 H Seg Neutrophils # Man Lymphocytes # (Manual) POC ABG pH POC ABG pCO2 POC ABG pO2 Sodium Potassium 3.2 L Chloride Carbon Dioxide Creatinine 0.2 L 0.3 L Glucose POC Glucose Calcium 8.2 L 7.9 L Total Protein Albumin Urine WBC (Auto) 08/12/16 08/12/16 08/13/16 12:13 16:26 06:41 WBC 12.2 H RBC Hgb 8.4 L Hct 29.6 L MCV 70 L MCH 20 L MCHC 29 L RDW 20.5 H Plt Count Lymph % (Auto) [place] % (Auto) 15.5 H Lymph # [place] # 1.9 H Seg Neutrophils % Seg Neuts % (Manual) Lymphocytes % (Manual) Nucleated RBC % Seg Neutrophils # 8.3 H Seg Neutrophils # Man Lymphocytes # (Manual) POC ABG pH POC ABG pCO2 POC ABG pO2 Sodium Potassium Chloride Carbon Dioxide Creatinine Glucose POC Glucose 134 H 176 H Calcium Total Protein Albumin Urine WBC (Auto) 08/13/16 06:41 WBC RBC Hgb Hct MCV MCH MCHC RDW Plt Count Lymph % (Auto) [place] % (Auto) Lymph # [place] # Seg Neutrophils % Seg Neuts % (Manual) Lymphocytes % (Manual) Nucleated RBC % Seg Neutrophils # Seg Neutrophils # Man Lymphocytes # (Manual) POC ABG pH POC ABG pCO2 POC ABG pO2 Sodium Potassium 2.9 L* Chloride Carbon Dioxide Creatinine 0.4 L Glucose POC Glucose Calcium 8.2 L Total Protein Albumin Urine WBC (Auto) Allied health notes reviewed: RT
[2016-08-13] MEDS: TYLENOL PO PRN (23:19)
[2016-08-14] MEDS: DUONEB *Not for PRN Use IH SCH ×3 (02:29→13:52)
[2016-08-14] MEDS: LOPRESSOR PO SCH ×2 (06:18→11:10)
[2016-08-14 06:45] LABS: Anion Gap 17 mmol/L; Blood Urea Nitrogen 9 mg/dL (7-17); Calcium 8.4 mg/dL (8.4-10.2); Carbon Dioxide 26 mmol/L (22-30); Chloride 102.1 mmol/L (98-107); Glucose 108 mg/dL (65-100); Potassium 3.4 mmol/L (3.6-5.0); Sodium 142 mmol/L (137-145)
[2016-08-14] MEDS: PLAVIX PO SCH (07:18)
--- NOTE | 2016-08-14 07:43 | Progress Note ---
Hospitalist Physical - Constitutional Vitals: Temp Pulse Resp BP Pulse Ox 97.3 F L 107 H 20 0/0 97 08/14/16 06:25 08/14/16 06:25 08/14/16 06:25 08/14/16 06:25 08/14/16 06:25 General appearance: Present: other (patient is unresponsive on the vent) Results - Labs CBC & Chem 7: 08/13/16 06:41 08/14/16 06:09 Labs: Laboratory Last Values WBC 12.2 K/mm3 (4.5-11.0) H 08/13/16 06:41 RBC 4.23 M/mm3 (3.65-5.03) 08/13/16 06:41 Hgb 8.4 gm/dl (10.1-14.3) L 08/13/16 06:41 Hct 29.6 % (30.3-42.9) L 08/13/16 06:41 MCV 70 fl (79-97) L 08/13/16 06:41 MCH 20 pg (28-32) L 08/13/16 06:41 MCHC 29 % (30-34) L 08/13/16 06:41 RDW 20.5 % (13.2-15.2) H 08/13/16 06:41 Plt Count 176 K/mm3 (140-440) 08/13/16 06:41 Lymph % (Auto) 15.0 % (13.4-35.0) 08/13/16 06:41 [place] % (Auto) 15.5 % (0.0-7.3) H 08/13/16 06:41 Eos % (Auto) 1.5 % (0.0-4.3) 08/13/16 06:41 Baso % (Auto) 0.1 % (0.0-1.8) 08/13/16 06:41 Lymph # 1.8 K/mm3 (1.2-5.4) 08/13/16 06:41 [place] # 1.9 K/mm3 (0.0-0.8) H 08/13/16 06:41 Eos # 0.2 K/mm3 (0.0-0.4) 08/13/16 06:41 Baso # 0.0 K/mm3 (0.0-0.1) 08/13/16 06:41 Add Manual Diff TNR 08/10/16 06:00 Total Counted 100 08/08/16 06:00 Seg Neutrophils % 67.9 % (40.0-70.0) 08/13/16 06:41 Seg Neuts % (Manual) 95.0 % (40.0-70.0) H 08/08/16 06:00 Band Neutrophils % 0 % 08/08/16 06:00 Lymphocytes % (Manual) 1.0 % (13.4-35.0) L 08/08/16 06:00 Reactive Lymphs % (Man) 0 % 08/08/16 06:00 Monocytes % (Manual) 4.0 % (0.0-7.3) 08/08/16 06:00 Eosinophils % (Manual) 0 % (0.0-4.3) 08/08/16 06:00 Basophils % (Manual) 0 % (0.0-1.8) 08/08/16 06:00 Metamyelocytes % 0 % 08/08/16 06:00 Myelocytes % 0 % 08/08/16 06:00 Promyelocytes % 0 % 08/08/16 06:00 Blast Cells % 0 % 08/08/16 06:00 Nucleated RBC % 1.0 % (0.0-0.9) H 08/08/16 06:00 Seg Neutrophils # 8.3 K/mm3 (1.8-7.7) H 08/13/16 06:41 Seg Neutrophils # Man 8.6 K/mm3 (1.8-7.7) H 08/08/16 06:00 Band Neutrophils # 0.0 K/mm3 08/08/16 06:00 Lymphocytes # (Manual) 0.1 K/mm3 (1.2-5.4) L 08/08/16 06:00 Abs React Lymphs (Man) 0.0 K/mm3 08/08/16 06:00 Monocytes # (Manual) 0.4 K/mm3 (0.0-0.8) 08/08/16 06:00 Eosinophils # (Manual) 0.0 K/mm3 (0.0-0.4) 08/08/16 06:00 Basophils # (Manual) 0.0 K/mm3 (0.0-0.1) 08/08/16 06:00 Metamyelocytes # 0.0 K/mm3 08/08/16 06:00 Myelocytes # 0.0 K/mm3 08/08/16 06:00 Promyelocytes # 0.0 K/mm3 08/08/16 06:00 Blast Cells # 0.0 K/mm3 08/08/16 06:00 WBC Morphology Not Reportable 08/08/16 06:00 Hypersegmented Neuts Not Reportable 08/08/16 06:00 Hyposegmented Neuts Not Reportable 08/08/16 06:00 Hypogranular Neuts Not Reportable 08/08/16 06:00 Smudge Cells Not Reportable 08/08/16 06:00 Toxic Granulation Not Reportable 08/08/16 06:00 Toxic Vacuolation Not Reportable 08/08/16 06:00 Dohle Bodies Not Reportable 08/08/16 06:00 Pelger-Huet Anomaly Not Reportable 08/08/16 06:00 Neha Rods Not Reportable 08/08/16 06:00 Platelet Estimate Appears normal 08/08/16 06:00 Clumped Platelets Not Reportable 08/08/16 06:00 Plt Clumps, EDTA Not Reportable 08/08/16 06:00 Large Platelets Not Reportable 08/08/16 06:00 Giant Platelets Not Reportable 08/08/16 06:00 Platelet Satelliting Not Reportable 08/08/16 06:00 Plt Morphology Comment Not Reportable 08/08/16 06:00 RBC Morphology Not Reportable 08/08/16 06:00 Dimorphic RBCs Not Reportable 08/08/16 06:00 Polychromasia Not Reportable 08/08/16 06:00 Hypochromasia 2+ 08/08/16 06:00 Poikilocytosis Not Reportable 08/08/16 06:00 Anisocytosis 1+ 08/08/16 06:00 Microcytosis Not Reportable 08/08/16 06:00 Macrocytosis Not Reportable 08/08/16 06:00 Spherocytes Not Reportable 08/08/16 06:00 Pappenheimer Bodies Not Reportable 08/08/16 06:00 Sickle Cells Not Reportable 08/08/16 06:00 Target Cells Not Reportable 08/08/16 06:00 Tear Drop Cells Not Reportable 08/08/16 06:00 Ovalocytes Not Reportable 08/08/16 06:00 Helmet Cells Not Reportable 08/08/16 06:00 [place] Bodies Not Reportable 08/08/16 06:00 [place] Rings Not Reportable 08/08/16 06:00 [place] Cells Not Reportable 08/08/16 06:00 Bite Cells Not Reportable 08/08/16 06:00 Crenated Cell Not Reportable 08/08/16 06:00 Elliptocytes Not Reportable 08/08/16 06:00 Acanthocytes (Spur) Not Reportable 08/08/16 06:00 Rouleaux Not Reportable 08/08/16 06:00 Hemoglobin C Crystals Not Reportable 08/08/16 06:00 Schistocytes Not Reportable 08/08/16 06:00 Malaria parasites Not Reportable 08/08/16 06:00 Hernan Bodies Not Reportable 08/08/16 06:00 Hem Pathologist Commnt No 08/08/16 06:00 PT 15.7 Sec. (12.2-14.9) H 08/05/16 00:06 INR 1.26 (0.87-1.13) H 08/05/16 00:06 APTT 40.4 Sec. (24.2-36.6) H 08/05/16 00:06 POC ABG pH 7.448 (7.35-7.45) 08/10/16 11:58 POC ABG pCO2 48.8 (35-45) H 08/10/16 11:58 POC ABG pO2 126 (80-105) H 08/10/16 11:58 POC ABG HCO3 33.8 08/10/16 11:58 POC ABG Total CO2 35 08/10/16 11:58 POC ABG O2 Sat 99 08/10/16 11:58 POC ABG Base Excess 10 08/10/16 11:58 FiO2 50 % 08/10/16 11:58 Sodium 142 mmol/L (137-145) 08/14/16 06:09 Potassium 3.4 mmol/L (3.6-5.0) L 08/14/16 06:09 Chloride 102.1 mmol/L (98-107) 08/14/16 06:09 Carbon Dioxide 26 mmol/L (22-30) 08/14/16 06:09 Anion Gap 17 mmol/L 08/14/16 06:09 BUN 9 mg/dL (7-17) 08/14/16 06:09 Creatinine 0.5 mg/dL (0.7-1.2) L 08/14/16 06:09 Estimated GFR > 60 ml/min 08/14/16 06:09 BUN/Creatinine Ratio 18.00 % 08/14/16 06:09 Glucose 108 mg/dL (65-100) H 08/14/16 06:09 POC Glucose 115 (70-105) H 08/13/16 18:10 Lactic Acid 1.10 mmol/L (0.7-2.0) 08/05/16 03:49 Calcium 8.4 mg/dL (8.4-10.2) 08/14/16 06:09 Magnesium 2.00 mg/dL (1.7-2.3) 08/14/16 06:09 Total Bilirubin 0.30 mg/dL (0.1-1.2) 08/06/16 04:00 AST 17 units/L (5-40) 08/06/16 04:00 ALT 8 units/L (7-56) 08/06/16 04:00 Alkaline Phosphatase 63 units/L (35-129) 08/06/16 04:00 Total Creatine Kinase 76 units/L (30-135) 08/05/16 07:15 CK-MB (CK-2) 2.0 ng/mL (0.0-4.0) 08/05/16 07:15 CK-MB (CK-2) Rel Index 2.6 (0-4) 08/05/16 07:15 Troponin T < 0.010 ng/mL (0.00-0.029) 08/05/16 07:15 Total Protein 5.1 g/dL (6.3-8.2) L D 08/06/16 04:00 Albumin 2.5 g/dL (3.9-5) L 08/06/16 04:00 Albumin/Globulin Ratio 1.0 % 08/06/16 04:00 Urine Color Yellow (Yellow) 08/05/16 15:30 Urine Turbidity Clear (Clear) 08/05/16 15:30 Urine pH 5.0 (5.0-7.0) 08/05/16 15:30 Ur Specific [place] 1.020 (1.003-1.030) 08/05/16 15:30 Urine Protein 30 mg/dl mg/dL (Negative) 08/05/16 15:30 Urine Glucose (UA) Neg mg/dL (Negative) 08/05/16 15:30 Urine Ketones Tr mg/dL (Negative) 08/05/16 15:30 Urine Blood Mod (Negative) 08/05/16 15:30 Urine Nitrite Neg (Negative) 08/05/16 15:30 Urine Bilirubin Neg (Negative) 08/05/16 15:30 Urine Urobilinogen < 2.0 mg/dL (<2.0) 08/05/16 15:30 Ur Leukocyte Esterase Tr (Negative) 08/05/16 15:30 Urine WBC (Auto) 9.0 /HPF (0.0-6.0) H 08/05/16 15:30 Urine RBC (Auto) 1.0 /HPF (0.0-6.0) 08/05/16 15:30 U Epithel Cells (Auto) < 1.0 /HPF (0-13.0) 08/05/16 15:30 Urine Yeast (Budding) 1+ /HPF 08/05/16 15:30 Vancomycin Trough 10.2 ug/mL (5.0-20.0) 08/07/16 15:15 Salicylates 3.5 mg/dL (2.8-20.0) 08/05/16 03:49 Urine Opiates Screen Presumptive positive 08/05/16 01:06 Urine Methadone Screen Presumptive negative 08/05/16 01:06 Acetaminophen < 15.0 ug/mL (10.0-30.0) 08/05/16 00:06 Ur Barbiturates Screen Presumptive negative 08/05/16 01:06 Ur Phencyclidine Scrn Presumptive negative 08/05/16 01:06 Ur Amphetamines Screen Presumptive negative 08/05/16 01:06 U Benzodiazepines Scrn Presumptive negative 08/05/16 01:06 Urine Cocaine Screen Presumptive negative 08/05/16 01:06 U Marijuana (THC) Screen Presumptive negative 08/05/16 01:06 Drugs of Abuse Note Disclamer 08/05/16 01:06 Plasma/Serum Alcohol < 0.01 gm% (0-0.07) 08/05/16 00:06 Blood Type O POSITIVE 08/05/16 00:06 JACOB Antibody Screen Negative 08/05/16 00:06
[2016-08-14] MEDS ORDERED: K-DUR PO NR (08:00)
--- NOTE | 2016-08-14 09:31 | Progress Note ---
Assessment and Plan Acute respiratory failure Possible overdose SIRS Abnormal ECG ECG shows Q waves and inferior ST elevation which likely represents the inferior STEMI of 3 months ago, with persistence of ECG abnormalities. Coronary artery disease There is chronic occlusion of the distal right coronary artery, with unsuccessful angioplasty 3 months ago at [facility]. In addition, there is mid LAD stenosis which was treated successfully last month (06/26) with a bare metal stent at [facility]. On aspirin therapy. Plavix discontinued given ongoing melena and drop in hemoglobin. Patient has completed 1 month of DAPT post BMS Mild Cardiomyopathy EF 40-45% on echo 06/2016 Hx of COPD Coffee ground emesis Paroxysmal afib with RVR - new onset currently in sinus rhythm on metoprolol for suppression Conservative cardiac management. Subjective Date of service: 08/14/16 Principal diagnosis: GI bleed Interval history: Patient reports shortness of breath on exertion. She denies chest pain. Awaits GI endoscopy this morning. Objective Vital Signs Temp Pulse Pulse Pulse Pulse Pulse Pulse 08/14/16 08:39 08/14/16 08:38 89 08/14/16 06:25 97.3 F L 0 L 0 L 0 L 0 L 08/14/16 06:18 96 H 08/14/16 01:15 98.1 F 0 L 0 L 0 L 0 L 08/13/16 22:15 101 H 08/13/16 22:05 115 H 08/13/16 22:00 08/13/16 21:58 97.5 F L 0 L 0 L 0 L 0 L 08/13/16 19:00 98.8 F 88 88 88 88 08/13/16 13:56 105 H 08/13/16 10:00 80 08/13/16 09:46 108 H 08/13/16 09:35 97.8 F 79 79 79 79 Pulse Resp Resp BP BP BP Pulse Ox 08/14/16 08:39 18 08/14/16 08:38 08/14/16 06:25 107 H 20 0/0 127/60 97 08/14/16 06:18 122/60 08/14/16 01:15 95 H 20 0/0 117/60 90 08/13/16 22:15 20 08/13/16 22:05 20 08/13/16 22:00 96 08/13/16 21:58 93 H 20 0/0 124/68 91 08/13/16 19:00 88 20 116/59 116/59 08/13/16 13:56 18 08/13/16 10:00 20 08/13/16 09:46 18 98 08/13/16 09:35 79 18 149/74 149/74 - Physical Examination General: No Apparent Distress HEENT: Positive: PERRL Neck: Positive: trachea midline Cardiac: Positive: Reg Rate and Rhythm Lungs: Positive: Decreased Breath Sounds Neuro: Positive: Grossly Intact Extremities: Absent: edema - Labs and Meds Comprehensive Metabolic Panel 08/14/16 Range/Units 06:09 Sodium 142 (137-145) mmol/L Potassium 3.4 L (3.6-5.0) mmol/L Chloride 102.1 (98-107) mmol/L Carbon Dioxide 26 (22-30) mmol/L BUN 9 (7-17) mg/dL Creatinine 0.5 L (0.7-1.2) mg/dL Glucose 108 H (65-100) mg/dL Calcium 8.4 (8.4-10.2) mg/dL - Imaging and Cardiology EKG: image reviewed - Allied health notes Allied health notes reviewed: RT
[2016-08-14] MEDS ORDERED: DIPRIVAN 10 MG/ML IV ONE (09:49)
[2016-08-14] MEDS ORDERED: NACL 0.9% 1000 ML 1,000 ML IV SCH (10:00)
--- NOTE | 2016-08-14 10:24 | Post Operative Note ---
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 evidence of prior gastric surgery (appears billroth II). no signs of bleeding or high risk bleeding stigmata. Procedure: EGD Anesthesia: MAC Surgeon: FITZ WHITE Estimated blood loss: none Pathology: none Condition: stable Disposition: floor
--- NOTE | 2016-08-14 10:38 | Operative Report ---
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 The [employer] endoscope was inserted into the mouth with direct vision and advanced into the 2nd portion of duodenum without difficulty. The patient tolerated the procedure well. The views of the mucosa were fair (retained food limited views of gastric body) Findings: The esophagus appeared normal There was moderate amount of retained food in the stomach limiting detailed exam. There was evidence of prior gastric surgery (appears to be billroth II). The visualized portions of the small intestine appeared normal. No signs of high risk bleeding stigmata seen throughout procedure Impression: 1. Evidence of prior gastric surgery (suspect billroth II) 2. Retained food in stomach (possible gastroparesis) Recommendations: -Avoid NSAID medications -colonoscopy as outpatient for anemia work-up -follow-up in GI clinic in 2-3 weeks after discharge Will sign off, please call as needed or with questions.
[2016-08-14] MEDS: DELTASONE PO SCH (11:09)
[2016-08-14] MEDS: HALFPRIN EC PO SCH (11:09)
[2016-08-14] MEDS: HABITROL TD SCH (11:09)
[2016-08-14] MEDS: ZESTRIL PO SCH (11:10)
[2016-08-14] MEDS: PROTONIX FEEDTUBE SCH (11:10)
--- NOTE | 2016-08-14 11:17 | Anesthesia Consultation ---
Anesthesia Consult and Med Hx Date of service: 08/14/16 - Airway Anesthetic Teeth Evaluation: Dentures ROM Head & Neck: Adequate Mental/Hyoid Distance: Adequate Mallampati Class: Class II Intubation Access Assessment: Probably Good - Pulmonary Exam CTA: Yes - Cardiac Exam Cardiac Exam: RRR - Pre-Operative Health Status ASA Pre-Surgery Classification: ASA4 Proposed Anesthetic Plan: MAC - Pulmonary Hx Asthma: No COPD: Yes (3 liter home oxygen) Hx Pneumonia: Yes - Cardiovascular System Hx Hypertension: Yes Hx Coronary Artery Disease: Yes (CHF EF 40-45 (07/03)) Hx Heart Attack/AMI: Yes (stent placed June 2016) Hx Pacemaker: No Hx Internal Defibrillator: No - Central Nervous System Hx Psychiatric Problems: Yes (overdose on vicodin) - Endocrine Hx End Stage Renal Disease: No Hx Liver Disease: Yes (HEP C) - Hematic Hx Anemia: Yes (SIRS)
--- NOTE | 2016-08-14 11:17 | Anesthesia Day of Surgery ---
Anesthesia Day of Surgery - Day of Surgery Patient Examined: Yes Patient H&P Reviewed: Yes Patient is NPO: Yes Beta Blockers: Yes
--- NOTE | 2016-08-14 11:55 | Discharge Summary ---
Providers - Providers Date of Admission: 08/05/16 02:53 Date of discharge: 08/14/16 Attending physician: CHACHA BARRIENTOS 08/06/16 09:56 Consult to Dietitian/Nutrition [CONS] Routine Physician Instructions: Reason For Exam: Reason for Consult: Write/Manage Tube Feeding 08/08/16 10:11 PICC Line Insertion [Consult to PICC Line RN] [CONS] Routine Reason For Exam: Central line access needed Type Line:: PICC Primary care physician: PRIVACY MANAGER Hospitalization Reason for admission: metabolic encephalopathy/acute respiratory failure Condition: Fair Pertinent studies: Consults; Cardiology GI Pulmonary critical Procedures: Intubation and mechanical ventilation EGD CT head, multiple chest x-rays Hospital course: Final diagnosis; Acute respiratory failure Drug overdose Hypertension Cardiology artery disease status post PCI Cardiomyopathy COPD with exacerbation Congestive heart failure Cardiomyopathy Anemia GI bleeding This history and hospital course; 56-year-old female patient with multiple medical problems was admitted through emergency room with altered level of consciousness and acute respiratory failure requiring intubation Patient was intubated and admitted to ICU, evaluated by pulmonary critical, stabilized Successfully extubated and transferred to medical floor Patient also had coffee-ground emesis seen by GI, had EGD revealed prior gastric surgery Possible gastroparesis, avoid NSAIDs, outpatient follow-up for possible colonoscopy and anemia workup Patient's symptoms significantly improved, cardiology evaluated the patient medications were optimized On the day of discharge patient is comfortable in no new complaints, vital signs are stable, [id number] evaluation and physical examination done by me prior to discharge did not show any new changes,, Patient is hemodynamically and clinically stable for discharge Disposition: DC-01 TO HOME OR SELFCARE Time spent for discharge: 33 min Core Measure Documentation - Palliative Care Palliative Care/ Comfort Measures: Not Applicable - Core Measures Any of the following diagnoses?: none Exam - Constitutional Vitals: Temp Pulse Resp BP Pulse Ox 98.0 F 88 19 104/47 96 08/14/16 10:01 08/14/16 10:31 08/14/16 10:31 08/14/16 10:31 08/14/16 10:31 General appearance: Present: no acute distress, well-nourished - EENT Eyes: Present: PERRL, EOM intact - Neck Neck: Present: supple, normal ROM - Respiratory Respiratory effort: normal Respiratory: bilateral: diminished, negative: rales, rhonchi, wheezing - Cardiovascular Rhythm: regular Heart Sounds: Present: S1 & S2 - Extremities Extremities: no ischemia, pulses intact, pulses symmetrical Peripheral Pulses: within normal limits - Abdominal General gastrointestinal: Present: soft, non-tender, non-distended, normal bowel sounds - Integumentary Integumentary: Present: clear, warm - Musculoskeletal Musculoskeletal: strength equal bilaterally, generalized weakness - Psychiatric Psychiatric: appropriate mood/affect, cooperative - Neurologic Neurologic: CNII-XII intact, moves all extremities Plan Activity: no restrictions Diet: other (cardiac diet) Additional Instructions: If you have new episodes of GI bleeding, contact M.D. or go to emergency. room. Advised to avoid NSAIDs. If you notice any of GI bleeding, hold aspirin and contact M.D. Follow up with: PRIMARY MD CARMELLA [Primary Care Provider] - 3-5 Days JENNA MATTHEWS MD [Staff Physician] - 7 Days FITZ WHITE MD [Staff Physician] - 7 Days Forms: Discharge Signature Page Prescriptions: AtorvaSTATin [Lipitor] 40 mg PO QHS #30 tablet Lisinopril [Zestril TAB] 2.5 mg PO QDAY #30 tablet Metoprolol [Lopressor TAB] 25 mg PO Q6H #60 tablet Nicotine [Habitrol] 21 mg TD QDAY #30 patch
--- NOTE | 2016-08-14 13:29 | Post Anesthesia Evaluation ---
- Post Anesthesia Evaluation Patient Participated: Yes Airway Patent: Yes Stable Respiratory Function: Yes Nausea/Vomiting: No Temp > 96.8F: Yes Pain Manageable: Yes Adequeate Hydration: Yes Anesthesia Complications: No
[2016-08-14 14:06] VITALS: BP 134/63
--- NOTE | 2016-08-29 14:38 | Addendum Note ---
- Addendum Date: 08/10/16 Note: Assessment and Plan Assessment and plan: Acute respiratory failure, was on mechanical ventilation <96hrs Drug overdose SIRS with hypotension COPD CHF CAD Cardiomyopathy - Patient is on mechanical ventilation - On IV antibiotics and IV fluids - Blood, urine and tracheal aspirate cultures are negative - Cardiology and pulmonary consult appreciated - GI was consulted for coffee ground emesis at the time of intubation in the ED , stool was positive for blood Prophylaxis - Mechanical because of coffee-ground emesis Prognosis - guarded Disposition - Continue ICU care. History Interval history: Patient was seen and evaluated this morning, patient extubated yesterday, no new compliants, alert and oriented, wanted to be treated. Hospitalist Physical - Physical exam Narrative exam: Patient iis on [place] oxygen. The patient appeared well nourished and normally developed. Vital signs as documented. Head exam is unremarkable. No scleral icterus . Neck is without jugular venous distension, thyromegaly, or carotid bruits. Lungs are clear to auscultation. Cardiac exam reveals regular rate and Rhythm. First and second heart sounds normal. No murmurs, rubs or gallops. Abdominal exam reveals normal bowel sounds, no masses, no organomegaly and no aortic enlargement. Extremities are nonedematous and both femoral and pedal pulses are normal. CHEMICAL OPERATOR: Alert and oriented - Constitutional Vitals: Temp Pulse Resp BP Pulse Ox 98.5 F 84 12 143/85 97 08/10/16 12:00 08/10/16 13:00 08/10/16 13:00 08/10/16 13:00 08/10/16 13:00 General appearance: Present: other (patient is unresponsive on the vent) Results - Labs CBC & Chem 7: Labs: Laboratory Last Values WBC 12.6 K/mm3 (4.5-11.0) H 08/11/16 04:00 RBC 4.50 M/mm3 (3.65-5.03) 08/11/16 04:00 Hgb 9.2 gm/dl (10.1-14.3) L 08/11/16 04:00 Hct 31.7 % (30.3-42.9) 08/11/16 04:00 MCV 70 fl (79-97) L 08/11/16 04:00 MCH 20 pg (28-32) L 08/11/16 04:00 MCHC 29 % (30-34) L 08/11/16 04:00 RDW 20.3 % (13.2-15.2) H 08/11/16 04:00 Plt Count 148 K/mm3 (140-440) 08/11/16 04:00 Lymph % (Auto) 5.5 % (13.4-35.0) L 08/11/16 04:00 Citrus % (Auto) 8.6 % (0.0-7.3) H 08/11/16 04:00 Eos % (Auto) 0.0 % (0.0-4.3) 08/11/16 04:00 Baso % (Auto) 0.1 % (0.0-1.8) 08/11/16 04:00 Lymph # 0.7 K/mm3 (1.2-5.4) L 08/11/16 04:00 [place] # 1.1 K/mm3 (0.0-0.8) H 08/11/16 04:00 Eos # 0.0 K/mm3 (0.0-0.4) 08/11/16 04:00 Baso # 0.0 K/mm3 (0.0-0.1) 08/11/16 04:00 Add Manual Diff TNR 08/10/16 06:00 Total Counted 100 08/08/16 06:00 Seg Neutrophils % 85.8 % (40.0-70.0) H 08/11/16 04:00 Seg Neuts % (Manual) 95.0 % (40.0-70.0) H 08/08/16 06:00 Band Neutrophils % 0 % 08/08/16 06:00 Lymphocytes % (Manual) 1.0 % (13.4-35.0) L 08/08/16 06:00 Reactive Lymphs % (Man) 0 % 08/08/16 06:00 Monocytes % (Manual) 4.0 % (0.0-7.3) 08/08/16 06:00 Eosinophils % (Manual) 0 % (0.0-4.3) 08/08/16 06:00 Basophils % (Manual) 0 % (0.0-1.8) 08/08/16 06:00 Metamyelocytes % 0 % 08/08/16 06:00 Myelocytes % 0 % 08/08/16 06:00 Promyelocytes % 0 % 08/08/16 06:00 Blast Cells % 0 % 08/08/16 06:00 Nucleated RBC % 1.0 % (0.0-0.9) H 08/08/16 06:00 Seg Neutrophils # 10.8 K/mm3 (1.8-7.7) H 08/11/16 04:00 Seg Neutrophils # Man 8.6 K/mm3 (1.8-7.7) H 08/08/16 06:00 Band Neutrophils # 0.0 K/mm3 08/08/16 06:00 Lymphocytes # (Manual) 0.1 K/mm3 (1.2-5.4) L 08/08/16 06:00 Abs React Lymphs (Man) 0.0 K/mm3 08/08/16 06:00 Monocytes # (Manual) 0.4 K/mm3 (0.0-0.8) 08/08/16 06:00 Eosinophils # (Manual) 0.0 K/mm3 (0.0-0.4) 08/08/16 06:00 Basophils # (Manual) 0.0 K/mm3 (0.0-0.1) 08/08/16 06:00 Metamyelocytes # 0.0 K/mm3 08/08/16 06:00 Myelocytes # 0.0 K/mm3 08/08/16 06:00 Promyelocytes # 0.0 K/mm3 08/08/16 06:00 Blast Cells # 0.0 K/mm3 08/08/16 06:00 WBC Morphology Not Reportable 08/08/16 06:00 Hypersegmented Neuts Not Reportable 08/08/16 06:00 Hyposegmented Neuts Not Reportable 08/08/16 06:00 Hypogranular Neuts Not Reportable 08/08/16 06:00 Smudge Cells Not Reportable 08/08/16 06:00 Toxic Granulation Not Reportable 08/08/16 06:00 Toxic Vacuolation Not Reportable 08/08/16 06:00 Dohle Bodies Not Reportable 08/08/16 06:00 Pelger-Huet Anomaly Not Reportable 08/08/16 06:00 Neha Rods Not Reportable 08/08/16 06:00 Platelet Estimate Appears normal 08/08/16 06:00 Clumped Platelets Not Reportable 08/08/16 06:00 Plt Clumps, EDTA Not Reportable 08/08/16 06:00 Large Platelets Not Reportable 08/08/16 06:00 Giant Platelets Not Reportable 08/08/16 06:00 Platelet Satelliting Not Reportable 08/08/16 06:00 Plt Morphology Comment Not Reportable 08/08/16 06:00 RBC Morphology Not Reportable 08/08/16 06:00 Dimorphic RBCs Not Reportable 08/08/16 06:00 Polychromasia Not Reportable 08/08/16 06:00 Hypochromasia 2+ 08/08/16 06:00 Poikilocytosis Not Reportable 08/08/16 06:00 Anisocytosis 1+ 08/08/16 06:00 Microcytosis Not Reportable 08/08/16 06:00 Macrocytosis Not Reportable 08/08/16 06:00 Spherocytes Not Reportable 08/08/16 06:00 Pappenheimer Bodies Not Reportable 08/08/16 06:00 Sickle Cells Not Reportable 08/08/16 06:00 Target Cells Not Reportable 08/08/16 06:00 Tear Drop Cells Not Reportable 08/08/16 06:00 Ovalocytes Not Reportable 08/08/16 06:00 Helmet Cells Not Reportable 08/08/16 06:00 [place] Bodies Not Reportable 08/08/16 06:00 [place] Rings Not Reportable 08/08/16 06:00 [place] Cells Not Reportable 08/08/16 06:00 Bite Cells Not Reportable 08/08/16 06:00 Crenated Cell Not Reportable 08/08/16 06:00 Elliptocytes Not Reportable 08/08/16 06:00 Acanthocytes (Spur) Not Reportable 08/08/16 06:00 Rouleaux Not Reportable 08/08/16 06:00 Hemoglobin C Crystals Not Reportable 08/08/16 06:00 Schistocytes Not Reportable 08/08/16 06:00 Malaria parasites Not Reportable 08/08/16 06:00 Hernan Bodies Not Reportable 08/08/16 06:00 Hem Pathologist Commnt No 08/08/16 06:00 PT 15.7 Sec. (12.2-14.9) H 08/05/16 00:06 INR 1.26 (0.87-1.13) H 08/05/16 00:06 APTT 40.4 Sec. (24.2-36.6) H 08/05/16 00:06 POC ABG pH 7.448 (7.35-7.45) 08/10/16 11:58 POC ABG pCO2 48.8 (35-45) H 08/10/16 11:58 POC ABG pO2 126 (80-105) H 08/10/16 11:58 POC ABG HCO3 33.8 08/10/16 11:58 POC ABG Total CO2 35 08/10/16 11:58 POC ABG O2 Sat 99 08/10/16 11:58 POC ABG Base Excess 10 08/10/16 11:58 FiO2 50 % 08/10/16 11:58 Sodium 141 mmol/L (137-145) 08/11/16 04:00 Potassium 3.7 mmol/L (3.6-5.0) 08/11/16 04:00 Chloride 99.8 mmol/L (98-107) 08/11/16 04:00 Carbon Dioxide 30 mmol/L (22-30) 08/11/16 04:00 Anion Gap 15 mmol/L 08/11/16 04:00 BUN 11 mg/dL (7-17) 08/11/16 04:00 Creatinine 0.2 mg/dL (0.7-1.2) L 08/11/16 04:00 Estimated GFR > 60 ml/min 08/11/16 04:00 BUN/Creatinine Ratio 55.00 % 08/11/16 04:00 Glucose 94 mg/dL (65-100) 08/11/16 04:00 POC Glucose 96 (70-105) 08/11/16 11:28 Lactic Acid 1.10 mmol/L (0.7-2.0) 08/05/16 03:49 Calcium 8.2 mg/dL (8.4-10.2) L 08/11/16 04:00 Total Bilirubin 0.30 mg/dL (0.1-1.2) 08/06/16 04:00 AST 17 units/L (5-40) 08/06/16 04:00 ALT 8 units/L (7-56) 08/06/16 04:00 Alkaline Phosphatase 63 units/L (35-129) 08/06/16 04:00 Total Creatine Kinase 76 units/L (30-135) 08/05/16 07:15 CK-MB (CK-2) 2.0 ng/mL (0.0-4.0) 08/05/16 07:15 CK-MB (CK-2) Rel Index 2.6 (0-4) 08/05/16 07:15 Troponin T < 0.010 ng/mL (0.00-0.029) 08/05/16 07:15 Total Protein 5.1 g/dL (6.3-8.2) L D 08/06/16 04:00 Albumin 2.5 g/dL (3.9-5) L 08/06/16 04:00 Albumin/Globulin Ratio 1.0 % 08/06/16 04:00 Urine Color Yellow (Yellow) 08/05/16 15:30 Urine Turbidity Clear (Clear) 08/05/16 15:30 Urine pH 5.0 (5.0-7.0) 08/05/16 15:30 Ur Specific [place] 1.020 (1.003-1.030) 08/05/16 15:30 Urine Protein 30 mg/dl mg/dL (Negative) 08/05/16 15:30 Urine Glucose (UA) Neg mg/dL (Negative) 08/05/16 15:30 Urine Ketones Tr mg/dL (Negative) 08/05/16 15:30 Urine Blood Mod (Negative) 08/05/16 15:30 Urine Nitrite Neg (Negative) 08/05/16 15:30 Urine Bilirubin Neg (Negative) 08/05/16 15:30 Urine Urobilinogen < 2.0 mg/dL (<2.0) 08/05/16 15:30 Ur Leukocyte Esterase Tr (Negative) 08/05/16 15:30 Urine WBC (Auto) 9.0 /HPF (0.0-6.0) H 08/05/16 15:30 Urine RBC (Auto) 1.0 /HPF (0.0-6.0) 08/05/16 15:30 U Epithel Cells (Auto) < 1.0 /HPF (0-13.0) 08/05/16 15:30 Urine Yeast (Budding) 1+ /HPF 08/05/16 15:30 Vancomycin Trough 10.2 ug/mL (5.0-20.0) 08/07/16 15:15 Salicylates 3.5 mg/dL (2.8-20.0) 08/05/16 03:49 Urine Opiates Screen Presumptive positive 08/05/16 01:06 Urine Methadone Screen Presumptive negative 08/05/16 01:06 Acetaminophen < 15.0 ug/mL (10.0-30.0) 08/05/16 00:06 Ur Barbiturates Screen Presumptive negative 08/05/16 01:06 Ur Phencyclidine Scrn Presumptive negative 08/05/16 01:06 Ur Amphetamines Screen Presumptive negative 08/05/16 01:06 U Benzodiazepines Scrn Presumptive negative 08/05/16 01:06 Urine Cocaine Screen Presumptive negative 08/05/16 01:06 U Marijuana (THC) Screen Presumptive negative 08/05/16 01:06 Drugs of Abuse Note Disclamer 08/05/16 01:06 Plasma/Serum Alcohol < 0.01 gm% (0-0.07) 08/05/16 00:06 Blood Type O POSITIVE 08/05/16 00:06 JACOB Antibody Screen Negative 08/05/16 00:06
== END 2016-08-14 15:44 | disposition home or self-care (01) | DRG 870 ==
LOC: ED 23:00 → CC1 08-05 02:53 → 4A 08-11 16:50
PROVIDERS: ADMIT Internal Medicine; ATTEND Internal Medicine
PROC: 0BH18EZ Insertion of Endotracheal Airway into Trachea, Via Natural or Artificial Opening Endoscopic (ICD-10-PCS; principal; 2016-08-05)
PROC: 5A1955Z Respiratory Ventilation, Greater than 96 Consecutive Hours (ICD-10-PCS; 2016-08-05)
PROC: 5A09457 Assistance with Respiratory Ventilation, 24-96 Consecutive Hours, Continuous Positive Airway Pressure (ICD-10-PCS; 2016-08-05)
PROC: 02HV33Z Insertion of Infusion Device into Superior Vena Cava, Percutaneous Approach (ICD-10-PCS; 2016-08-08)
PROC: B5181ZA Fluoroscopy of Superior Vena Cava using Low Osmolar Contrast, Guidance (ICD-10-PCS; 2016-08-08)
PROC: 0DJ08ZZ Inspection of Upper Intestinal Tract, Via Natural or Artificial Opening Endoscopic (ICD-10-PCS; 2016-08-14)
PROC: 4A033R1 Measurement of Arterial Saturation, Peripheral, Percutaneous Approach (ICD-10-PCS; 2016-08-14)
DX: A41.9 Sepsis, unspecified organism (principal); J96.01 Acute respiratory failure with hypoxia; J69.0 Pneumonitis due to inhalation of food and vomit; I42.9 Cardiomyopathy, unspecified; K92.2 Gastrointestinal hemorrhage, unspecified; J44.1 Chronic obstructive pulmonary disease with (acute) exacerbation; T40.601A Poisoning by unspecified narcotics, accidental (unintentional), initial encounter; I25.10 Atherosclerotic heart disease of native coronary artery without angina pectoris; K21.9 Gastro-esophageal reflux disease without esophagitis; I50.9 Heart failure, unspecified; I11.0 Hypertensive heart disease with heart failure; F32.9 Major depressive disorder, single episode, unspecified; F17.200 Nicotine dependence, unspecified, uncomplicated; I48.0 Paroxysmal atrial fibrillation; I25.82 Chronic total occlusion of coronary artery; D50.9 Iron deficiency anemia, unspecified; E87.6 Hypokalemia; K31.89 Other diseases of stomach and duodenum; Z88.8 Allergy status to other drugs, medicaments and biological substances; Z95.5 Presence of coronary angioplasty implant and graft; Y92.89 Other specified places as the place of occurrence of the external cause
CPT/HCPCS: 36415; 36600; 70450; 71010; 80048; 80053; 80202; 80307; 80320; 81001; 82140; 82271; 82550; 82553; 82803; 82962; 83735; 84484; 85007; 85014; 85018; 85025; 85027; 85610; 85730; 86850; 86900; 86901; 87040; 87086; 87205; 93005; 93010; 94002; 94003; 94640; 94660; 94760; 96365; 99291; A9270-GY; C9113; G0480; J1630; J1940; J2543; J2704; J2930; J3010; J3246; J3370; J3480; J7030; J7040; J7050; J7120; J7512

== ENCOUNTER 2016-08-17 14:48 | Inpatient (IN) | payer MEDICARE ==
[2016-08-17] MEDS ORDERED: ATROVENT IH ONE (15:02)
[2016-08-17] MEDS ORDERED: PROVENTIL IH ONE (15:02)
[2016-08-17] MEDS ORDERED: DECADRON IV ONE (15:06)
[2016-08-17] MEDS ORDERED: MAGNESIUM SULFATE IV ONE (15:07)
--- NOTE | 2016-08-17 15:12 | Emergency Department Report ---
ED Shortness of Breath HPI - General Chief Complaint: Dyspnea/Respdistress Stated Complaint: ALTERED LOC Time Seen by Provider: 08/17/16 15:01 Source: patient, EMS Mode of arrival: Stretcher Limitations: Altered Mental Status - History of Present Illness Initial Comments: Patient is a 56-year-old female with a history of risk for failure and COPD here with complaints of altered mental status. Family states that she seemed confused. This is per EMS. Patient is agitated but is able to answer questions. Poor historian denies chest pain. Patient seems to be short of breath MD Complaint: shortness of breath -: Gradual Consistency: constant Improves With: nothing Worsens With: nothing Known History Of: COPD Treatments Prior to Arrival: oxygen - Related Data Home Oxygen Therapy: No Home Medications Medication Instructions Recorded Confirmed Last Taken RX: ISOSORBIDE MONOnitrate [Imdur 30 mg PO DAILY 08/08/16 08/17/16 1 Day Ago ER] RX: Pantoprazole [Protonix TAB] 40 mg PO QDAY 08/08/16 08/17/16 1 Day Ago RX: Sucralfate 1 gm PO BID 08/08/16 08/17/16 1 Day Ago RX: amLODIPine [Norvasc] 10 mg PO DAILY 08/08/16 08/17/16 1 Day Ago Previous Rx's Medication Instructions Recorded Last Taken Type RX: ALBUTEROL Inhaler [ProAir HFA 2 puff IH QID PRN #1 inhalation 10/31/14 1 Day Ago Rx Inhaler] RX: Calc Carb/Vit D 500 mg-200 Uni 2 each PO BID tablet 10/31/14 1 Day Ago Rx [Oysco D 500 mg-200 Unit] RX: Aspirin EC [Aspirin Enteric 81 mg PO QDAY #30 tablet 07/16/16 1 Day Ago Rx Coated TAB] RX: Furosemide [Lasix TAB] 20 mg PO QDAY #30 tablet 07/16/16 1 Day Ago Rx RX: Ipratropium/Albuterol Sulfate 1 ampul IH TIDRT #100 ampul.neb 07/16/16 1 Day Ago Rx [Duoneb 0.5 mg-3 mg/3 ml Soln] RX: Potassium Chloride [K-Dur] 20 meq PO Q12H #30 tablet 07/16/16 1 Day Ago Rx RX: Venlafaxine HCl [Venlafaxine] 100 mg PO TIDWM #30 tablet 07/16/16 1 Day Ago Rx RX: AtorvaSTATin [Lipitor] 40 mg PO QHS #30 tablet 08/14/16 Unknown Rx RX: Lisinopril [Zestril TAB] 2.5 mg PO QDAY #30 tablet 08/14/16 Unknown Rx RX: Metoprolol [Lopressor TAB] 25 mg PO Q6H #60 tablet 08/14/16 Unknown Rx RX: Nicotine [Habitrol] 21 mg TD QDAY #30 patch 08/14/16 Unknown Rx RX: predniSONE [Deltasone] 20 mg PO QDAY #5 tablet 08/14/16 Unknown Rx oxyCODONE /ACETAMINOPHEN [Percocet 1 tab PO QHS PRN #7 tablet 08/14/16 Unknown Rx 5/325] Allergies Allergy/AdvReac Type Severity Reaction Status Date / Time phenobarbital Allergy Unknown Verified 10/28/14 09:33 ED Review of Systems ROS: Stated complaint: ALTERED LOC Other details as noted in HPI Comment: Unobtainable due to pts medical conditions ED Past Medical Hx - Past Medical History Hx Hypertension: Yes Hx Heart Attack/AMI: Yes (stent placed June 2016) Hx Congestive Heart Failure: No (patient denies) Hx Diabetes: No Hx Deep Vein Thrombosis: No Hx GERD: Yes Hx Liver Disease: Yes (HEP C) Hx Asthma: No Hx COPD: Yes (3 liter home oxygen) - Surgical History Hx Coronary Stent: Yes (June 2016) Hx Pacemaker: No Hx Internal Defibrillator: No Additional Surgical History: RONNY, heart stents - Social History Smoking Status: Unknown if ever smoked - Medications Home Medications: Home Medications Medication Instructions Recorded Confirmed Last Taken Type RX: ALBUTEROL Inhaler [ProAir HFA 2 puff IH QID PRN #1 inhalation 10/31/1408/17 1 Day Ago Rx Inhaler] RX: Calc Carb/Vit D 500 mg-200 Uni 2 each PO BID tablet 10/31/14 08/17/16 1 Day Ago Rx [Oysco D 500 mg-200 Unit] RX: Aspirin EC [Aspirin Enteric 81 mg PO QDAY #30 tablet 07/16/16 08/17/16 1 Day Ago Rx Coated TAB] RX: Furosemide [Lasix TAB] 20 mg PO QDAY #30 tablet 07/16/16 08/17/16 1 Day Ago Rx RX: Ipratropium/Albuterol Sulfate 1 ampul IH TIDRT #100 ampul.neb 07/16/1608/17 1 Day Ago Rx [Duoneb 0.5 mg-3 mg/3 ml Soln] RX: Potassium Chloride [K-Dur] 20 meq PO Q12H #30 tablet 07/16/16 08/17/16 1 Day Ago Rx RX: Venlafaxine HCl [Venlafaxine] 100 mg PO TIDWM #30 tablet 07/16/16 08/17/16 1 Day Ago Rx RX: ISOSORBIDE MONOnitrate [Imdur 30 mg PO DAILY 08/08/16 08/17/16 1 Day Ago History ER] RX: Pantoprazole [Protonix TAB] 40 mg PO QDAY 08/08/16 08/17/16 1 Day Ago History RX: Sucralfate 1 gm PO BID 08/08/16 08/17/16 1 Day Ago History RX: amLODIPine [Norvasc] 10 mg PO DAILY 08/08/16 08/17/16 1 Day Ago History RX: AtorvaSTATin [Lipitor] 40 mg PO QHS #30 tablet 08/14/16 08/17/16 Unknown Rx RX: Lisinopril [Zestril TAB] 2.5 mg PO QDAY #30 tablet 08/14/16 08/17/16 Unknown Rx RX: Metoprolol [Lopressor TAB] 25 mg PO Q6H #60 tablet 08/14/16 08/17/16 Unknown Rx RX: Nicotine [Habitrol] 21 mg TD QDAY #30 patch 08/14/16 08/17/16 Unknown Rx RX: predniSONE [Deltasone] 20 mg PO QDAY #5 tablet 08/14/16 08/17/16 Unknown Rx oxyCODONE /ACETAMINOPHEN [Percocet 1 tab PO QHS PRN #7 tablet 08/14/16 08/17/16 Unknown Rx 5/325] ED Physical Exam - General Limitations: Altered Mental Status General appearance: anxious, in distress - Head Head exam: Present: atraumatic, normocephalic - Eye Eye exam: Present: normal appearance - ENT ENT exam: Present: normal exam - Neck Neck exam: Present: normal inspection, tenderness - Respiratory Respiratory exam: Present: decreased breath sounds - Cardiovascular Cardiovascular Exam: Present: regular rate, normal rhythm - GI/Abdominal GI/Abdominal exam: Present: soft. Absent: distended, tenderness, guarding, rebound - Extremities Exam Extremities exam: Present: normal inspection, full ROM - Back Exam Back exam: Present: normal inspection, full ROM - Expanded Neurological Exam Expanded Neurological exam: Present: innattentive Patient oriented to: Present: person (mild jerking) ED Course Vital Signs 08/17/16 08/17/16 08/17/16 11:24 11:30 11:46 Temperature Pulse Rate Pulse Rate [ Bilateral Throughout] Respiratory Rate Respiratory Rate [Bilateral Throughout] Blood Pressure O2 Sat by Pulse 98 98 96 Oximetry 08/17/16 08/17/16 08/17/16 12:00 12:16 12:30 Temperature Pulse Rate Pulse Rate [ Bilateral Throughout] Respiratory Rate Respiratory Rate [Bilateral Throughout] Blood Pressure O2 Sat by Pulse 96 97 99 Oximetry 08/17/16 08/17/16 08/17/16 12:46 13:00 14:42 Temperature Pulse Rate Pulse Rate [ Bilateral Throughout] Respiratory Rate Respiratory Rate [Bilateral Throughout] Blood Pressure O2 Sat by Pulse 97 96 99 Oximetry 08/17/16 08/17/16 08/17/16 14:46 14:57 15:00 Temperature 99.6 F Pulse Rate 79 58 L Pulse Rate [ Bilateral Throughout] Respiratory 26 H 13 Rate Respiratory Rate [Bilateral Throughout] Blood Pressure 119/52 119/52 O2 Sat by Pulse 99 100 100 Oximetry 08/17/16 08/17/16 08/17/16 15:16 15:27 15:30 Temperature Pulse Rate 73 55 L Pulse Rate [ Bilateral Throughout] Respiratory 22 20 18 Rate Respiratory Rate [Bilateral Throughout] Blood Pressure 123/47 95/38 O2 Sat by Pulse 99 98 Oximetry 08/17/16 08/17/16 08/17/16 15:46 16:00 16:16 Temperature Pulse Rate 81 54 L 51 L Pulse Rate [ 54 L Bilateral Throughout] Respiratory 20 20 18 Rate Respiratory 15 Rate [Bilateral Throughout] Blood Pressure 92/36 94/33 94/33 O2 Sat by Pulse 79 L 94 94 Oximetry 08/17/16 08/17/16 08/17/16 16:23 16:30 16:46 Temperature Pulse Rate 53 L 48 L Pulse Rate [ 60 Bilateral Throughout] Respiratory 24 17 Rate Respiratory 18 Rate [Bilateral Throughout] Blood Pressure 94/33 116/50 O2 Sat by Pulse 95 97 Oximetry 08/17/16 08/17/16 08/17/16 17:00 17:16 17:30 Temperature Pulse Rate 50 L 107 H Pulse Rate [ Bilateral Throughout] Respiratory 16 23 16 Rate Respiratory Rate [Bilateral Throughout] Blood Pressure 111/46 111/46 102/46 O2 Sat by Pulse 97 94 97 Oximetry 08/17/16 08/17/16 08/17/16 17:46 18:00 18:16 Temperature Pulse Rate 123 H Pulse Rate [ Bilateral Throughout] Respiratory 16 22 22 Rate Respiratory Rate [Bilateral Throughout] Blood Pressure 102/46 102/46 121/53 O2 Sat by Pulse 96 98 97 Oximetry 08/17/16 08/17/16 18:30 18:46 Temperature Pulse Rate 46 L 61 Pulse Rate [ Bilateral Throughout] Respiratory 16 17 Rate Respiratory Rate [Bilateral Throughout] Blood Pressure 124/53 124/53 O2 Sat by Pulse 95 96 Oximetry ED Medical Decision Making - Lab Data Result diagrams: 08/17/16 15:22 08/17/16 15:22 Laboratory Results - last 24 hr 08/17/16 08/17/16 08/17/16 15:22 15:22 15:22 WBC 9.7 RBC 3.61 L Hgb 7.5 L Hct 26.4 L MCV 73 L MCH 21 L MCHC 28 L RDW 21.3 H Plt Count 279 Lymph % (Auto) 9.6 L [place] % (Auto) 10.8 H Eos % (Auto) 1.6 Baso % (Auto) 0.4 Lymph # 0.9 L [place] # 1.1 H Eos # 0.2 Baso # 0.0 Seg Neutrophils % 77.6 H Seg Neutrophils # 7.5 PT INR POC ABG pH POC ABG pCO2 POC ABG pO2 POC ABG HCO3 POC ABG Total CO2 POC ABG O2 Sat POC ABG Base Excess FiO2 Potassium 4.2 D Carbon Dioxide 28 BUN 6 L Creatinine 0.6 L Estimated GFR > 60 BUN/Creatinine Ratio 10.00 Glucose 94 Lactic Acid 1.00 Calcium 8.5 Magnesium Total Bilirubin 0.50 AST 11 ALT 15 Alkaline Phosphatase 63 Troponin T Total Protein 5.8 L Albumin 3.4 L Albumin/Globulin Ratio 1.4 Triglycerides Cholesterol LDL Cholesterol Direct HDL Cholesterol Cholesterol/HDL Ratio Urine Color Urine Turbidity Urine pH Ur Specific [place] Urine Protein Urine Glucose (UA) Urine Ketones Urine Blood Urine Nitrite Urine Bilirubin Urine Urobilinogen Ur Leukocyte Esterase Urine WBC (Auto) Urine RBC (Auto) U Epithel Cells (Auto) Urine Bacteria (Auto) Urine Mucus 08/17/16 08/17/16 08/17/16 15:22 15:22 15:22 WBC RBC Hgb Hct MCV MCH MCHC RDW Plt Count Lymph % (Auto) [place] % (Auto) Eos % (Auto) Baso % (Auto) Lymph # [place] # Eos # Baso # Seg Neutrophils % Seg Neutrophils # PT 14.5 INR 1.14 H POC ABG pH POC ABG pCO2 POC ABG pO2 POC ABG HCO3 POC ABG Total CO2 POC ABG O2 Sat POC ABG Base Excess FiO2 Potassium Carbon Dioxide BUN Creatinine Estimated GFR BUN/Creatinine Ratio Glucose Lactic Acid Calcium Magnesium 1.90 Total Bilirubin AST ALT Alkaline Phosphatase Troponin T 0.040 H Total Protein Albumin Albumin/Globulin Ratio Triglycerides 123 Cholesterol 119 LDL Cholesterol Direct 45 L HDL Cholesterol 50 Cholesterol/HDL Ratio 2.38 Urine Color Urine Turbidity Urine pH Ur Specific [place] Urine Protein Urine Glucose (UA) Urine Ketones Urine Blood Urine Nitrite Urine Bilirubin Urine Urobilinogen Ur Leukocyte Esterase Urine WBC (Auto) Urine RBC (Auto) U Epithel Cells (Auto) Urine Bacteria (Auto) Urine Mucus 08/17/16 08/17/16 15:33 16:02 WBC RBC Hgb Hct MCV MCH MCHC RDW Plt Count Lymph % (Auto) [place] % (Auto) Eos % (Auto) Baso % (Auto) Lymph # [place] # Eos # Baso # Seg Neutrophils % Seg Neutrophils # PT INR POC ABG pH 7.492 H POC ABG pCO2 38.6 POC ABG pO2 85 POC ABG HCO3 29.5 POC ABG Total CO2 31 POC ABG O2 Sat 97 POC ABG Base Excess 6 FiO2 35 Potassium Carbon Dioxide BUN Creatinine Estimated GFR BUN/Creatinine Ratio Glucose Lactic Acid Calcium Magnesium Total Bilirubin AST ALT Alkaline Phosphatase Troponin T Total Protein Albumin Albumin/Globulin Ratio Triglycerides Cholesterol LDL Cholesterol Direct HDL Cholesterol Cholesterol/HDL Ratio Urine Color Yellow Urine Turbidity Clear Urine pH 7.0 Ur Specific [place] 1.014 Urine Protein 100 mg/dl Urine Glucose (UA) Neg Urine Ketones Neg Urine Blood Neg Urine Nitrite Neg Urine Bilirubin Neg Urine Urobilinogen < 2.0 Ur Leukocyte Esterase Sm Urine WBC (Auto) 2.0 Urine RBC (Auto) 2.0 U Epithel Cells (Auto) 1.0 Urine Bacteria (Auto) 1+ Urine Mucus Few Laboratory Results - last 24 hr 08/17/16 08/17/16 08/17/16 15:22 15:22 15:22 WBC 9.7 RBC 3.61 L Hgb 7.5 L Hct 26.4 L MCV 73 L MCH 21 L MCHC 28 L RDW 21.3 H Plt Count 279 Lymph % (Auto) 9.6 L [place] % (Auto) 10.8 H Eos % (Auto) 1.6 Baso % (Auto) 0.4 Lymph # 0.9 L [place] # 1.1 H Eos # 0.2 Baso # 0.0 Seg Neutrophils % 77.6 H Seg Neutrophils # 7.5 PT INR POC ABG pH POC ABG pCO2 POC ABG pO2 POC ABG HCO3 POC ABG Total CO2 POC ABG O2 Sat POC ABG Base Excess FiO2 Potassium 4.2 D Carbon Dioxide 28 BUN 6 L Creatinine 0.6 L Estimated GFR > 60 BUN/Creatinine Ratio 10.00 Glucose 94 Lactic Acid 1.00 Calcium 8.5 Magnesium Total Bilirubin 0.50 AST 11 ALT 15 Alkaline Phosphatase 63 Troponin T Total Protein 5.8 L Albumin 3.4 L Albumin/Globulin Ratio 1.4 Triglycerides Cholesterol LDL Cholesterol Direct HDL Cholesterol Cholesterol/HDL Ratio Urine Color Urine Turbidity Urine pH Ur Specific [place] Urine Protein Urine Glucose (UA) Urine Ketones Urine Blood Urine Nitrite Urine Bilirubin Urine Urobilinogen Ur Leukocyte Esterase Urine WBC (Auto) Urine RBC (Auto) U Epithel Cells (Auto) Urine Bacteria (Auto) Urine Mucus 08/17/16 08/17/16 08/17/16 15:22 15:22 15:22 WBC RBC Hgb Hct MCV MCH MCHC RDW Plt Count Lymph % (Auto) [place] % (Auto) Eos % (Auto) Baso % (Auto) Lymph # [place] # Eos # Baso # Seg Neutrophils % Seg Neutrophils # PT 14.5 INR 1.14 H POC ABG pH POC ABG pCO2 POC ABG pO2 POC ABG HCO3 POC ABG Total CO2 POC ABG O2 Sat POC ABG Base Excess FiO2 Potassium Carbon Dioxide BUN Creatinine Estimated GFR BUN/Creatinine Ratio Glucose Lactic Acid Calcium Magnesium 1.90 Total Bilirubin AST ALT Alkaline Phosphatase Troponin T 0.040 H Total Protein Albumin Albumin/Globulin Ratio Triglycerides 123 Cholesterol 119 LDL Cholesterol Direct 45 L HDL Cholesterol 50 Cholesterol/HDL Ratio 2.38 Urine Color Urine Turbidity Urine pH Ur Specific [place] Urine Protein Urine Glucose (UA) Urine Ketones Urine Blood Urine Nitrite Urine Bilirubin Urine Urobilinogen Ur Leukocyte Esterase Urine WBC (Auto) Urine RBC (Auto) U Epithel Cells (Auto) Urine Bacteria (Auto) Urine Mucus 08/17/16 08/17/16 08/17/16 15:33 16:02 17:37 WBC RBC Hgb Hct MCV MCH MCHC RDW Plt Count Lymph % (Auto) [place] % (Auto) Eos % (Auto) Baso % (Auto) Lymph # [place] # Eos # Baso # Seg Neutrophils % Seg Neutrophils # PT INR POC ABG pH 7.492 H POC ABG pCO2 38.6 POC ABG pO2 85 POC ABG HCO3 29.5 POC ABG Total CO2 31 POC ABG O2 Sat 97 POC ABG Base Excess 6 FiO2 35 Potassium Carbon Dioxide BUN Creatinine Estimated GFR BUN/Creatinine Ratio Glucose Lactic Acid Calcium Magnesium Total Bilirubin AST ALT Alkaline Phosphatase Troponin T 0.033 H Total Protein Albumin Albumin/Globulin Ratio Triglycerides Cholesterol LDL Cholesterol Direct HDL Cholesterol Cholesterol/HDL Ratio Urine Color Yellow Urine Turbidity Clear Urine pH 7.0 Ur Specific [place] 1.014 Urine Protein 100 mg/dl Urine Glucose (UA) Neg Urine Ketones Neg Urine Blood Neg Urine Nitrite Neg Urine Bilirubin Neg Urine Urobilinogen < 2.0 Ur Leukocyte Esterase Sm Urine WBC (Auto) 2.0 Urine RBC (Auto) 2.0 U Epithel Cells (Auto) 1.0 Urine Bacteria (Auto) 1+ Urine Mucus Few 08/17/16 18:47 WBC RBC Hgb Hct MCV MCH MCHC RDW Plt Count Lymph % (Auto) [place] % (Auto) Eos % (Auto) Baso % (Auto) Lymph # [place] # Eos # Baso # Seg Neutrophils % Seg Neutrophils # PT INR POC ABG pH 7.445 POC ABG pCO2 41.8 POC ABG pO2 69 L POC ABG HCO3 28.7 POC ABG Total CO2 30 POC ABG O2 Sat 94 POC ABG Base Excess 5 FiO2 30 Potassium Carbon Dioxide BUN Creatinine Estimated GFR BUN/Creatinine Ratio Glucose Lactic Acid Calcium Magnesium Total Bilirubin AST ALT Alkaline Phosphatase Troponin T Total Protein Albumin Albumin/Globulin Ratio Triglycerides Cholesterol LDL Cholesterol Direct HDL Cholesterol Cholesterol/HDL Ratio Urine Color Urine Turbidity Urine pH Ur Specific [place] Urine Protein Urine Glucose (UA) Urine Ketones Urine Blood Urine Nitrite Urine Bilirubin Urine Urobilinogen Ur Leukocyte Esterase Urine WBC (Auto) Urine RBC (Auto) U Epithel Cells (Auto) Urine Bacteria (Auto) Urine Mucus - EKG Data -: EKG Interpreted by Me - EKG Data Interpretation: no acute changes 08/17/16 19:23 EKG shows sinus bradycardia of 47 with less than half millimeter ST elevation in the inferior leads. She also has T-wave inversions in V2 through V6. I reviewed the old EKGs and her ST morphology is very similar to this. - Medical Decision Making Patient is a 56-year-old female here with complaint of confusion. Patient appears to be in respiratory distress. She was recently admitted here and intubated for COPD exacerbation. She is moving minimal air on clinical exam. She has some mild jerking consistent with likely CO2 narcosis. Plan to treat with BiPAP. ABG ordered. Chest x-ray labs. Anticipate admission. Labs are unremarkable. EKG shows slight ST elevation inferiorly. I discussed this with cardiology and given negative troponins 2 and the similar morphology to prior EKG I do not suspect that this is a new MT. It is unclear to me at this point what has caused her altered mental status. I discussed the case with the hospitalist and I plan to admit the patient to the intensive care unit for current monitoring. He agrees with this plan. Critical Care Time: Yes (45 mins) Critical care attestation.: If time is entered above; I have spent that time in minutes in the direct care of this critically ill patient, excluding procedure time. Critical Care Time: 45 ED Disposition Clinical Impression: Altered mental status, Abnormal ECG, COPD (chronic obstructive pulmonary disease), Obesity (BMI 30.0-34.9), Overdose Disposition: -09 OP ADMIT IP TO THIS HOSP Is pt being admited?: Yes Does the pt Need Aspirin: No Condition: Critical Instructions: Chronic Obstructive Pulmonary Disease (ED) Referrals: PRIMARY CARE, [Primary Care Provider] - 3-5 Days
[2016-08-17] MEDS ORDERED: ATIVAN ONE ×2 (15:21→22:16)
[2016-08-17] MEDS ORDERED: ATIVAN IV ONE (15:25)
[2016-08-17 15:39] LABS: ISTAT Base Excess 6; ISTAT HCO3 29.5; ISTAT PCO2 38.6 (35-45); ISTAT PH 7.492 (7.35-7.45); ISTAT PO2 85 (80-105); ISTAT SO2 97; ISTAT TCO2 31
[2016-08-17 15:57] LABS: Basophils % (Auto) 0.4 % (0.0-1.8); Eosinophils % (Auto) 1.6 % (0.0-4.3); Mean Corpuscular HGB Conc 28 % (30-34); Mean Corpuscular Volume 73 fl (79-97); Platelet Count 279 K/mm3 (140-440); Red Blood Count 3.61 M/mm3 (3.65-5.03); White Blood Count 9.7 K/mm3 (4.5-11.0)
[2016-08-17 16:00] LABS: Hemoglobin 7.5 gm/dl (10.1-14.3)
[2016-08-17] MEDS ORDERED: MAGNESIUM SULFATE 2GM/50ML 2 GM/50 ML BAG IV SCH (16:00)
[2016-08-17 16:01] LABS: Hematocrit 26.4 % (30.3-42.9); Mean Corpuscular Hemoglobin 21 pg (28-32); Red Cell Distribution Width 21.3 % (13.2-15.2)
[2016-08-17 16:07] LABS: INR 1.14 (0.87-1.13)
[2016-08-17 16:25] LABS: Alanine Aminotransferase 15 units/L (7-56); Albumin 3.4 g/dL (3.9-5); Albumin/Globulin Ratio 1.4 %; Alkaline Phosphatase 63 units/L (35-129); Anion Gap 18 mmol/L; Blood Urea Nitrogen 6 mg/dL (7-17); Calcium 8.5 mg/dL (8.4-10.2); Carbon Dioxide 28 mmol/L (22-30); Chloride 102.9 mmol/L (98-107); Glucose 94 mg/dL (65-100); Potassium 4.2 mmol/L (3.6-5.0); Sodium 145 mmol/L (137-145); Total Protein 5.8 g/dL (6.3-8.2)
[2016-08-17 16:32] LABS: Bacteria,Urine 1+ /HPF (Negative); Bilirubin,Urine NEG (Negative); Blood,Urine NEG (Negative); Ketones,Urine NEG (Negative); Leukocyte Esterase,Urine SM (Negative); Mucus,Urine FEW /HPF; Nitrite,Urine NEG (Negative); Urobilinogen,Urine < 2.0 mg/dL (<2.0)
--- NOTE | 2016-08-17 16:40 | XRay Report ---
FINAL REPORT EXAM: XR CHEST 1V AP HISTORY: Dyspnea TECHNIQUE: Frontal chest x-ray. PRIORS: Chest x-ray August 04, 2016. FINDINGS: Hypoaerated lungs accentuate the pulmonary markings and cardiac silhouette. Prominent central pulmonary markings. No pneumothorax. Possible small bilateral pleural effusions. No distinct consolidation. Cardiac silhouette is partially obscured. Aortic calcifications. There are no suspicious osseous lesions. Spinal surgical hardware noted. Previously noted endotracheal tube and enteric tube have been removed. IMPRESSION: Suspect mild pulmonary vascular congestion and small bilateral pleural effusions. Possibly slightly worse compared to prior.
[2016-08-17] MEDS ORDERED: CALCIUM GLUCONATE 2,000 MG in NACL 0.9% 100 ML IV ONE (17:29)
[2016-08-17 18:53] LABS: ISTAT Base Excess 5; ISTAT HCO3 28.7; ISTAT PCO2 41.8 (35-45); ISTAT PH 7.445 (7.35-7.45); ISTAT PO2 69 (80-105); ISTAT SO2 94; ISTAT TCO2 30
[2016-08-17 21:20] LABS: Urine Drugs of Abuse Note Disclamer
[2016-08-17] MEDS: ATIVAN IV PRN (22:25)
[2016-08-17] MEDS ORDERED: DUONEB *Not for PRN Use IH (23:09)
--- NOTE | 2016-08-17 23:09 | History and Physical Report ---
History of Present Illness Date of examination: 08/17/16 Date of admission: 08/17/16 20:20 Chief complaint: Increasing SOB and altered sensorium. History of present illness: CASSI: 56-year-old female with a history of COPD brought in for resp distress and altered sensorium.Cough productive of mucoid sputum present. Family states that she seemed confused. This is per EMS. Patient is agitated but is able to answer questions. Poor historian denies chest pain. Patient is short of breath and wheezing.No fever/chills - Related Data Home Oxygen Therapy: No Home Medications Medication Instructions Recorded Confirmed Last Taken RX: ISOSORBIDE MONOnitrate [Imdur 30 mg PO DAILY 08/08/16 08/17/16 1 Day Ago ER] RX: Pantoprazole [Protonix TAB] 40 mg PO QDAY 08/08/16 08/17/16 1 Day Ago RX: Sucralfate 1 gm PO BID 08/08/16 08/17/16 1 Day Ago RX: amLODIPine [Norvasc] 10 mg PO DAILY 08/08/16 08/17/16 1 Day Ago Previous Rx's Medication Instructions Recorded Last Taken Type RX: ALBUTEROL Inhaler [ProAir HFA 2 puff IH QID PRN #1 inhalation 10/31/14 1 Day Ago Rx Inhaler] RX: Calc Carb/Vit D 500 mg-200 Uni 2 each PO BID tablet 10/31/14 1 Day Ago Rx [Oysco D 500 mg-200 Unit] RX: Aspirin EC [Aspirin Enteric 81 mg PO QDAY #30 tablet 07/16/16 1 Day Ago Rx Coated TAB] RX: Furosemide [Lasix TAB] 20 mg PO QDAY #30 tablet 07/16/16 1 Day Ago Rx RX: Ipratropium/Albuterol Sulfate 1 ampul IH TIDRT #100 ampul.neb 07/16/16 1 Day Ago Rx [Duoneb 0.5 mg-3 mg/3 ml Soln] RX: Potassium Chloride [K-Dur] 20 meq PO Q12H #30 tablet 07/16/16 1 Day Ago Rx RX: Venlafaxine HCl [Venlafaxine] 100 mg PO TIDWM #30 tablet 07/16/16 1 Day Ago Rx RX: AtorvaSTATin [Lipitor] 40 mg PO QHS #30 tablet 08/14/16 Unknown Rx RX: Lisinopril [Zestril TAB] 2.5 mg PO QDAY #30 tablet 08/14/16 Unknown Rx RX: Metoprolol [Lopressor TAB] 25 mg PO Q6H #60 tablet 08/14/16 Unknown Rx RX: Nicotine [Habitrol] 21 mg TD QDAY #30 patch 08/14/16 Unknown Rx RX: predniSONE [Deltasone] 20 mg PO QDAY #5 tablet 08/14/16 Unknown Rx oxyCODONE /ACETAMINOPHEN [Percocet 1 tab PO QHS PRN #7 tablet 08/14/16 Unknown Rx 5/325] Allergies Allergy/AdvReac Type Severity Reaction Status Date / Time phenobarbital Allergy Unknown Verified 10/28/14 09:33 ED Review of Systems ROS: Stated complaint: ALTERED LOC Other details as noted in HPI Comment: Unobtainable due to pts medical conditions ED Past Medical Hx - Past Medical History Hx Hypertension: Yes Hx Heart Attack/AMI: Yes (stent placed June 2016) Hx Congestive Heart Failure: No (patient denies) Hx Diabetes: No Hx Deep Vein Thrombosis: No Hx GERD: Yes Hx Liver Disease: Yes (HEP C) Hx Asthma: No Hx COPD: Yes (3 liter home oxygen) - Surgical History Hx Coronary Stent: Yes (June 2016) Hx Pacemaker: No Hx Internal Defibrillator: No Additional Surgical History: RONNY, heart stents - Social History Smoking Status: Unknown if ever smoked - Medications Home Medications: Home Medications Medication Instructions Recorded Confirmed Last Taken Type RX: ALBUTEROL Inhaler [ProAir HFA 2 puff IH QID PRN #1 inhalation 10/31/1408/17 1 Day Ago Rx Inhaler] RX: Calc Carb/Vit D 500 mg-200 Uni 2 each PO BID tablet 10/31/14 08/17/16 1 Day Ago Rx [Oysco D 500 mg-200 Unit] RX: Aspirin EC [Aspirin Enteric 81 mg PO QDAY #30 tablet 07/16/16 08/17/16 1 Day Ago Rx Coated TAB] RX: Furosemide [Lasix TAB] 20 mg PO QDAY #30 tablet 07/16/16 08/17/16 1 Day Ago Rx RX: Ipratropium/Albuterol Sulfate 1 ampul IH TIDRT #100 ampul.neb 07/16/1608/17 1 Day Ago Rx [Duoneb 0.5 mg-3 mg/3 ml Soln] RX: Potassium Chloride [K-Dur] 20 meq PO Q12H #30 tablet 07/16/16 08/17/16 1 Day Ago Rx RX: Venlafaxine HCl [Venlafaxine] 100 mg PO TIDWM #30 tablet 07/16/16 08/17/16 1 Day Ago Rx RX: ISOSORBIDE MONOnitrate [Imdur 30 mg PO DAILY 08/08/16 08/17/16 1 Day Ago History ER] RX: Pantoprazole [Protonix TAB] 40 mg PO QDAY 08/08/16 08/17/16 1 Day Ago History RX: Sucralfate 1 gm PO BID 08/08/16 08/17/16 1 Day Ago History RX: amLODIPine [Norvasc] 10 mg PO DAILY 08/08/16 08/17/16 1 Day Ago History RX: AtorvaSTATin [Lipitor] 40 mg PO QHS #30 tablet 08/14/16 08/17/16 Unknown Rx RX: Lisinopril [Zestril TAB] 2.5 mg PO QDAY #30 tablet 08/14/16 08/17/16 Unknown Rx RX: Metoprolol [Lopressor TAB] 25 mg PO Q6H #60 tablet 08/14/16 08/17/16 Unknown Rx RX: Nicotine [Habitrol] 21 mg TD QDAY #30 patch 08/14/16 08/17/16 Unknown Rx RX: predniSONE [Deltasone] 20 mg PO QDAY #5 tablet 08/14/16 08/17/16 Unknown Rx oxyCODONE /ACETAMINOPHEN [Percocet 1 tab PO QHS PRN #7 tablet 08/14/16 08/17/16 Unknown Rx 5/325] Medications and Allergies Allergies Allergy/AdvReac Type Severity Reaction Status Date / Time phenobarbital Allergy Unknown Verified 10/28/14 09:33 Home Medications Medication Instructions Recorded Confirmed Last Taken Type ALBUTEROL Inhaler [ProAir HFA 2 puff IH QID PRN #1 inhalation 10/31/14 08/17/16 1 Day Ago Rx Inhaler] Calc Carb/Vit D 500 mg-200 Uni 2 each PO BID tablet 10/31/14 08/17/16 1 Day Ago Rx [Oysco D 500 mg-200 Unit] Aspirin EC [Aspirin Enteric Coated 81 mg PO QDAY #30 tablet 07/16/16 08/17/16 1 Day Ago Rx TAB] Furosemide [Lasix TAB] 20 mg PO QDAY #30 tablet 07/16/16 08/17/16 1 Day Ago Rx Ipratropium/Albuterol Sulfate 1 ampul IH TIDRT #100 ampul.neb 07/16/16 08/17/16 1 Day Ago Rx [Duoneb 0.5 mg-3 mg/3 ml Soln] Potassium Chloride [K-Dur] 20 meq PO Q12H #30 tablet 07/16/16 08/17/16 1 Day Ago Rx Venlafaxine HCl [Venlafaxine] 100 mg PO TIDWM #30 tablet 07/16/16 08/17/16 1 Day Ago Rx ISOSORBIDE MONOnitrate [Imdur ER] 30 mg PO DAILY 08/08/16 08/17/16 1 Day Ago History Pantoprazole [Protonix TAB] 40 mg PO QDAY 08/08/16 08/17/16 1 Day Ago History Sucralfate 1 gm PO BID 08/08/16 08/17/16 1 Day Ago History amLODIPine [Norvasc] 10 mg PO DAILY 08/08/16 08/17/16 1 Day Ago History AtorvaSTATin [Lipitor] 40 mg PO QHS #30 tablet 08/14/16 08/17/16 Unknown Rx Lisinopril [Zestril TAB] 2.5 mg PO QDAY #30 tablet 08/14/16 08/17/16 Unknown Rx Metoprolol [Lopressor TAB] 25 mg PO Q6H #60 tablet 08/14/16 08/17/16 Unknown Rx Nicotine [Habitrol] 21 mg TD QDAY #30 patch 08/14/16 08/17/16 Unknown Rx oxyCODONE /ACETAMINOPHEN [Percocet 1 tab PO QHS PRN #7 tablet 08/14/16 08/17/16 Unknown Rx 5/325] predniSONE [Deltasone] 20 mg PO QDAY #5 tablet 08/14/16 08/17/16 Unknown Rx Active Meds: Active Medications Heparin Sodium (Porcine) (Heparin) 5,000 unit SUB-Q Q8HR DOMINICK Magnesium Sulfate (Magnesium Sulfate 2gm/50ml) 2 gm in 50 mls @ 100 mls/hr IV ONCE DOMINICK Last Admin: 08/17/16 15:45 Dose: 100 mls/hr Lorazepam (Ativan) 1 mg IV Q2H PRN PRN Reason: Agitation Last Admin: 08/17/16 22:25 Dose: 1 mg Review of Systems All systems: negative Constitutional: no weight loss, no weight gain, no fever, no chills Ears, nose, mouth and throat: no ear pain, no ear discharge, no tinnitis, no decreased hearing, no nose pain, no nasal congestion, no nasal discharge, no sinus pressure, no sinus pain, no epistaxis, no bleeding gums Breasts: deferred Cardiovascular: shortness of breath, dyspnea on exertion, no chest pain, no orthopnea, no palpitations, no rapid/irregular heart beat, no edema, no syncope , no lightheadedness Respiratory: cough, cough with sputum, shortness of breath, dyspnea on exertion , congestion, wheezing Gastrointestinal: no abdominal pain, no nausea, no vomiting, no diarrhea, no constipation, no change in bowel habits, no hematemesis, no coffee ground emesis Genitourinary Female: no dysuria, no urinary frequency, no urgency, no stress incontinence, no post void dribbling Menstruation: ammenorrhea Musculoskeletal: no neck stiffness, no neck pain, no shooting arm pain, no arm numbness/tingling, no low back pain, no shooting leg pain, no leg numbness/ tingling, no redness of joints Integumentary: no rash, no pruritis, no redness, no sores, no wounds, no jaundice, no boils, no blisters Neurological: no head injury, no transient paralysis, no paralysis, no weakness , no parathesias, no numbness, no tingling, no seizures, no syncope, no tremors , no ataxia, no lack of coordination Psychiatric: anxiety, no memory loss, no change in sleep habits Endocrine: no cold intolerance, no heat intolerance, no polyphagia, no excessive thirst Hematologic/Lymphatic: no easy bruising, no easy bleeding Allergic/Immunologic: no urticaria, no allergic rhinitis, no wheezing Exam - Physical Exam Narrative exam: IN resp distress on Bipap - Constitutional Vitals: Temp Pulse Resp BP Pulse Ox 99.6 F 55 L 16 133/55 98 08/17/16 14:57 08/17/16 20:21 08/17/16 20:21 08/17/16 20:21 08/17/16 20:21 General appearance: Present: no acute distress, well-nourished - EENT Eyes: Present: PERRL ENT: hearing intact, clear oral mucosa - Neck Neck: Present: supple, normal ROM - Respiratory Respiratory effort: normal Respiratory: bilateral: diminished, wheezing - Cardiovascular Heart rate: 90 Rhythm: regular Heart Sounds: Present: S1 & S2. Absent: rub, click - Extremities Extremities: no ischemia, pulses intact, pulses symmetrical, No edema Peripheral Pulses: within normal limits - Abdominal General gastrointestinal: Present: soft, non-tender, non-distended, normal bowel sounds Female genitourinary: Present: normal - Integumentary Integumentary: Present: clear, warm, dry - Musculoskeletal Musculoskeletal: gait normal, strength equal bilaterally - Psychiatric Psychiatric: appropriate mood/affect, intact judgment & insight - Neurologic Neurologic: CNII-XII intact, moves all extremities - Allied Health Allied health notes reviewed: nursing Results - Labs CBC & Chem 7: 08/17/16 15:22 08/17/16 15:22 Labs: Laboratory Last Values WBC 9.7 K/mm3 (4.5-11.0) 08/17/16 15:22 RBC 3.61 M/mm3 (3.65-5.03) L 08/17/16 15:22 Hgb 7.5 gm/dl (10.1-14.3) L 08/17/16 15:22 Hct 26.4 % (30.3-42.9) L 08/17/16 15:22 MCV 73 fl (79-97) L 08/17/16 15:22 MCH 21 pg (28-32) L 08/17/16 15:22 MCHC 28 % (30-34) L 08/17/16 15:22 RDW 21.3 % (13.2-15.2) H 08/17/16 15:22 Plt Count 279 K/mm3 (140-440) 08/17/16 15:22 Lymph % (Auto) 9.6 % (13.4-35.0) L 08/17/16 15:22 [place] % (Auto) 10.8 % (0.0-7.3) H 08/17/16 15:22 Eos % (Auto) 1.6 % (0.0-4.3) 08/17/16 15:22 Baso % (Auto) 0.4 % (0.0-1.8) 08/17/16 15:22 Lymph # 0.9 K/mm3 (1.2-5.4) L 08/17/16 15:22 [place] # 1.1 K/mm3 (0.0-0.8) H 08/17/16 15:22 Eos # 0.2 K/mm3 (0.0-0.4) 08/17/16 15:22 Baso # 0.0 K/mm3 (0.0-0.1) 08/17/16 15:22 Seg Neutrophils % 77.6 % (40.0-70.0) H 08/17/16 15: Seg Neutrophils # 7.5 K/mm3 (1.8-7.7) 08/17/16 15:22 PT 14.5 Sec. (12.2-14.9) 08/17/16 15:22 INR 1.14 (0.87-1.13) H 08/17/16 15:22 POC ABG pH 7.445 (7.35-7.45) 08/17/16 18:47 POC ABG pCO2 41.8 (35-45) 08/17/16 18:47 POC ABG pO2 69 (80-105) L 08/17/16 18:47 POC ABG HCO3 28.7 08/17/16 18:47 POC ABG Total CO2 30 08/17/16 18:47 POC ABG O2 Sat 94 08/17/16 18:47 POC ABG Base Excess 5 08/17/16 18:47 FiO2 30 % 08/17/16 18:47 Potassium 4.2 mmol/L (3.6-5.0) D 08/17/16 15:22 Carbon Dioxide 28 mmol/L (22-30) 08/17/16 15:22 BUN 6 mg/dL (7-17) L 08/17/16 15:22 Creatinine 0.6 mg/dL (0.7-1.2) L 08/17/16 15:22 Estimated GFR > 60 ml/min 08/17/16 15:22 BUN/Creatinine Ratio 10.00 % 08/17/16 15:22 Glucose 94 mg/dL (65-100) 08/17/16 15:22 Lactic Acid 1.00 mmol/L (0.7-2.0) 08/17/16 15:22 Calcium 8.5 mg/dL (8.4-10.2) 08/17/16 15:22 Magnesium 1.90 mg/dL (1.7-2.3) 08/17/16 15:22 Total Bilirubin 0.50 mg/dL (0.1-1.2) 08/17/16 15:22 AST 11 units/L (5-40) 08/17/16 15:22 ALT 15 units/L (7-56) 08/17/16 15:22 Alkaline Phosphatase 63 units/L (35-129) 08/17/16 15:22 Troponin T 0.033 ng/mL (0.00-0.029) H 08/17/16 17:37 Total Protein 5.8 g/dL (6.3-8.2) L 08/17/16 15:22 Albumin 3.4 g/dL (3.9-5) L 08/17/16 15:22 Albumin/Globulin Ratio 1.4 % 08/17/16 15:22 Triglycerides 123 mg/dL (2-149) 08/17/16 15:22 Cholesterol 119 mg/dL (50-199) 08/17/16 15:22 LDL Cholesterol Direct 45 mg/dL (50-130) L 08/17/16 15:22 HDL Cholesterol 50 mg/dL (40-59) 08/17/16 15:22 Cholesterol/HDL Ratio 2.38 % 08/17/16 15:22 Urine Color Yellow (Yellow) 08/17/16 16:02 Urine Turbidity Clear (Clear) 08/17/16 16:02 Urine pH 7.0 (5.0-7.0) 08/17/16 16:02 Ur Specific [place] 1.014 (1.003-1.030) 08/17/16 16:02 Urine Protein 100 mg/dl mg/dL (Negative) 08/17/16 16:02 Urine Glucose (UA) Neg mg/dL (Negative) 08/17/16 16:02 Urine Ketones Neg mg/dL (Negative) 08/17/16 16:02 Urine Blood Neg (Negative) 08/17/16 16:02 Urine Nitrite Neg (Negative) 08/17/16 16:02 Urine Bilirubin Neg (Negative) 08/17/16 16:02 Urine Urobilinogen < 2.0 mg/dL (<2.0) 08/17/16 16:02 Ur Leukocyte Esterase Sm (Negative) 08/17/16 16:02 Urine WBC (Auto) 2.0 /HPF (0.0-6.0) 08/17/16 16:02 Urine RBC (Auto) 2.0 /HPF (0.0-6.0) 08/17/16 16:02 U Epithel Cells (Auto) 1.0 /HPF (0-13.0) 08/17/16 16:02 Urine Bacteria (Auto) 1+ /HPF (Negative) 08/17/16 16:02 Urine Mucus Few /HPF 08/17/16 16:02 Urine Opiates Screen Presumptive negative 08/17/16 16:02 Urine Methadone Screen Presumptive negative 08/17/16 16:02 Ur Barbiturates Screen Presumptive negative 08/17/16 16:02 Ur Phencyclidine Scrn Presumptive positive 08/17/16 16:02 Ur Amphetamines Screen Presumptive negative 08/17/16 16:02 U Benzodiazepines Scrn Presumptive negative 08/17/16 16:02 Urine Cocaine Screen Presumptive negative 08/17/16 16:02 U Marijuana (THC) Screen Presumptive negative 08/17/16 16:02 Drugs of Abuse Note Disclamer 08/17/16 16:02 Short CBC 08/17/16 Range/Units 15:22 WBC 9.7 (4.5-11.0) K/mm3 Hgb 7.5 L (10.1-14.3) gm/dl Hct 26.4 L (30.3-42.9) % Plt Count 279 (140-440) K/mm3 BMP 08/17/16 15:22 Potassium 4.2 D Carbon Dioxide 28 BUN 6 L Creatinine 0.6 L Glucose 94 Calcium 8.5 Cardiac Enzymes 08/17/16 08/17/16 Range/Units 15:22 17:37 Troponin T 0.040 H 0.033 H (0.00-0.029) ng/mL Liver Function 08/17/16 Range/Units 15:22 Total Bilirubin 0.50 (0.1-1.2) mg/dL AST 11 (5-40) units/L ALT 15 (7-56) units/L Alkaline Phosphatase 63 (35-129) units/L Albumin 3.4 L (3.9-5) g/dL Urine 08/17/16 Range/Units 16:02 Urine Color Yellow (Yellow) Urine pH 7.0 (5.0-7.0) Ur Specific [place] 1.014 (1.003-1.030) Urine Protein 100 mg/dl (Negative) mg/dL Urine Glucose (UA) Neg (Negative) mg/dL - Imaging and Cardiology Chest x-ray: report reviewed (NAF) Assessment and Plan Advance Directives: Yes (Full code) VTE prophylaxis?: Chemical Plan of care discussed with patient/family: Yes - Patient Problems (1) Acute respiratory failure Current Visit: No Status: Acute Qualifiers: Respiratory failure complication: hypoxia Qualified Code(s): J96.01 - Acute respiratory failure with hypoxia Plan to address problem: Patient on bipap .Duonebs IV solumedrol Iv Levaquin initiated.Pulmonary consult requested. (2) COPD exacerbation Current Visit: No Status: Acute Plan to address problem: As Above (3) CHF (congestive heart failure) Current Visit: Yes Status: Chronic Qualifiers: Congestive heart failure type: combined Congestive heart failure chronicity : C Plan to address problem: Cont lasix. Echo (4) HTN (hypertension) Current Visit: Yes Status: Chronic Qualifiers: Hypertension type: essential hypertension Qualified Code(s): I10 - Essential (primary) hypertension Plan to address problem: Cont Lisinopril and Metoprolol (5) HLD (hyperlipidemia) Current Visit: Yes Status: Chronic Qualifiers: Hyperlipidemia type: mixed hyperlipidemia Qualified Code(s): E78.2 - Mixed hyperlipidemia Plan to address problem: Cont Atorvastatin at 40 mg po qd (6) Depression Current Visit: Yes Status: Chronic Qualifiers: Depression Type: unspecified Major depression recurrence: M Active/ Remission status: A Major depression episode severity: M Psychotic features : P Trimester: T Qualified Code(s): F32.9 - Major depressive disorder, single episode, unspecified Plan to address problem: Cont Venlafaxine (7) Nicotine dependence Current Visit: Yes Status: Chronic Qualifiers: Nicotine product type: cigarettes Substance use status: S Plan to address problem: Nicoderm patch ordered (8) DVT prophylaxis Current Visit: Yes Status: Acute Plan to address problem: On Lovenox
[2016-08-17] MEDS ORDERED: PROVENTIL IH PRN (23:21)
[2016-08-17] MEDS ORDERED: HEPARIN ONE (23:25)
--- NOTE | 2016-08-17 23:30 | Admit Criteria Form ---
Admission Criteria Documentation: MENTAL STATUS CHANGE Clinical Indications for Inpatient Care (Place 'X' for any and all applicable criteria): Ongoing inpatient care may be needed for 1 or more of the following(1)(2)(3)(5)( 6): [ ]I. Suspected serious etiology (eg, medical disorder, HAIRSPRING ADJUSTER event) of altered mental status [ ]II. Danger to self or others not manageable at lower level of care [ ]III. Grave disability (eg, inability to perform self care necessary at lower level of care) [X ]IV. Agitation or inappropriate behavior interfering with care for primary condition (eg, attempting to discontinue lines or drains prematurely, unable to cooperate with respiratory care) [ ]V. Delirium [A] [D][E] as described by 1 or more of the following(26): [ ]a) Delirium due to alcohol or sedative [F] withdrawal [ ]b) Delirium of uncertain etiology that has not responded to appropriate empiric treatment [ ]c) Delirium that prevents performance of a life-sustaining function (eg, feeding or hydrating oneself) [ X]. General contraindications and/or Inappropriate clinical situations for Observational Care in patients with Mental Status Change, when ANY ONE of the following is required: [ X]a) Prediction of prolongation of LOS based on ANY ONE of the following may be considered as a contraindication for observational care 2, 3, 4, 5, 6, 7, 8, 9, 10, 11 [ ]i) Age > 65 yrs. [ ]ii) Patient arriving by ambulance [ X]iii) Patient with high acuity [ ]iv) Patient requiring vital sign monitoring [ ]v) Patient on IV medication [ ]b) Systolic blood pressures greater than or equal to 180mmHg 3, 12 [ ]c) Patient with altered mental status including delirium and other alteration of consciousness, (3) [ ]d) Patient whose discharge disposition will be to a halfway home or rehabilitation home should not be managed in Emergency Department Observation Unit. CMS rule requires 3 days hospital stay before such placement.3,13 [ ]e) Patient with failure to thrive due to broad array of etiologies 3,16,17 [ ]f) Inability to ambulate 3,14 Extended stay beyond goal length of stay for the primary condition may be needed until ALL of the following are present(3)(5): [ ]a) Underlying medical etiology of mental status change is absent, or has been established and adequately treated [ ]b) Danger to self or others is absent or manageable at lower level of care. [ ]c) Behavior crisis management, including physical or chemical restraints, is not required or available at lower level of car [ ]d) Substance or alcohol withdrawal is absent or manageable at lower level of care. [ ]e) Behavioral symptoms (eg, agitation, somnolence, inappropriate behavior) are absent, or are manageable at lower level of care. The original [facility] [employer] content created by [email or web address] has been revised. The portions of the content which have been revised are identified through the use of italic text or in bold, and [facility] has neither reviewed nor approved the modified material. All other unmodified content is copyright [email or web address]. Please see references footnoted in the original [email or web address] edition 2016 Admission Criteria Met: Yes
[2016-08-17] MEDS: HEPARIN SUB-Q SCH (23:31)
[2016-08-18] MEDS: DUONEB *Not for PRN Use IH SCH ×4 (02:38→19:41)
[2016-08-18] MEDS: ATIVAN IV PRN ×6 (03:12→20:45)
[2016-08-18] MEDS: HEPARIN SUB-Q SCH ×3 (05:22→21:52)
[2016-08-18 09:43] LABS: Total Iron Binding Capacity 291.2 mcg/dL (250-450)
[2016-08-18] MEDS ORDERED: HABITROL TD SCH (10:00)
[2016-08-18 11:24] LABS: Hematocrit 26.2 % (30.3-42.9); Hemoglobin 7.5 gm/dl (10.1-14.3)
[2016-08-18] MEDS: K-DUR PO SCH ×2 (11:30→21:50)
[2016-08-18] MEDS: CARAFATE PO SCH ×2 (11:31→21:50)
[2016-08-18] MEDS: IMDUR PO SCH (11:31)
[2016-08-18] MEDS: HALFPRIN EC PO SCH (11:31)
[2016-08-18] MEDS: LOPRESSOR PO SCH ×3 (11:31→21:54)
[2016-08-18] MEDS: LASIX PO SCH (11:32)
--- NOTE | 2016-08-18 11:41 | Consultation ---
History of Present Illness Consult date: 08/18/16 Requesting physician: KELLI HERNÁNDEZ Consult reason: other (Abnormal EKG ) History of present illness: Patient is a 56 yr old with multiple comorbidites and recent hospital admission for respiratory distress due to narcotic overdose was brought in by the family for change in mntal status. Patient not able to give any history and is moving around in the bed agitated. Patient is known to us with history of inferior STEMI 4 moths ago. She was noted to have totaly occluded RCA that was recommend for medical therapy. She did undergo PCI of the LAD with bare metal stent 2 months ago. Patient has chronic back issues and is on multiple medications. Past History Past Medical History: CAD, hypertension Past Surgical History: Other (back surgery ) Social history: other (Could not be obtained ) Family history: no significant family history Medications and Allergies Allergies Allergy/AdvReac Type Severity Reaction Status Date / Time phenobarbital Allergy Unknown Verified 10/28/14 09:33 Home Medications Medication Instructions Recorded Confirmed Last Taken Type ALBUTEROL Inhaler [ProAir HFA 2 puff IH QID PRN #1 inhalation 10/31/14 08/17/16 1 Day Ago Rx Inhaler] Calc Carb/Vit D 500 mg-200 Uni 2 each PO BID tablet 10/31/14 08/17/16 1 Day Ago Rx [Oysco D 500 mg-200 Unit] Aspirin EC [Aspirin Enteric Coated 81 mg PO QDAY #30 tablet 07/16/16 08/17/16 1 Day Ago Rx TAB] Furosemide [Lasix TAB] 20 mg PO QDAY #30 tablet 07/16/16 08/17/16 1 Day Ago Rx Ipratropium/Albuterol Sulfate 1 ampul IH TIDRT #100 ampul.neb 07/16/16 08/17/16 1 Day Ago Rx [Duoneb 0.5 mg-3 mg/3 ml Soln] Potassium Chloride [K-Dur] 20 meq PO Q12H #30 tablet 07/16/16 08/17/16 1 Day Ago Rx Venlafaxine HCl [Venlafaxine] 100 mg PO TIDWM #30 tablet 07/16/16 08/17/16 1 Day Ago Rx ISOSORBIDE MONOnitrate [Imdur ER] 30 mg PO DAILY 08/08/16 08/17/16 1 Day Ago History Pantoprazole [Protonix TAB] 40 mg PO QDAY 08/08/16 08/17/16 1 Day Ago History Sucralfate 1 gm PO BID 08/08/16 08/17/16 1 Day Ago History amLODIPine [Norvasc] 10 mg PO DAILY 08/08/16 08/17/16 1 Day Ago History AtorvaSTATin [Lipitor] 40 mg PO QHS #30 tablet 08/14/16 08/17/16 Unknown Rx Lisinopril [Zestril TAB] 2.5 mg PO QDAY #30 tablet 08/14/16 08/17/16 Unknown Rx Metoprolol [Lopressor TAB] 25 mg PO Q6H #60 tablet 08/14/16 08/17/16 Unknown Rx Nicotine [Habitrol] 21 mg TD QDAY #30 patch 08/14/16 08/17/16 Unknown Rx oxyCODONE /ACETAMINOPHEN [Percocet 1 tab PO QHS PRN #7 tablet 08/14/16 08/17/16 Unknown Rx 5/325] predniSONE [Deltasone] 20 mg PO QDAY #5 tablet 08/14/16 08/17/16 Unknown Rx Active Meds: Active Medications Albuterol (Proventil) 2.5 mg IH Q3HRT PRN PRN Reason: Shortness Of Breath Albuterol/Ipratropium (Duoneb 0.5 Mg-3 Mg/3 Ml Soln) 1 ampul IH Q6HRT [facility] Last Admin: 08/18/16 09:27 Dose: 1 ampul Amlodipine Besylate (Norvasc) 10 mg PO DAILY [facility] Aspirin (Halfprin Ec) 81 mg PO QDAY [facility] Last Admin: 08/18/16 11:31 Dose: Not Given Atorvastatin Calcium (Lipitor) 40 mg PO QHS [facility] Calcium/Vitamin D (Oysco D 500 Mg-200 Unit) 2 each PO BID [facility] Enoxaparin Sodium (Lovenox) 40 mg SUB-Q QDAY@2200 [facility] Furosemide (Lasix) 20 mg PO QDAY [facility] Last Admin: 08/18/16 11:32 Dose: Not Given Heparin Sodium (Porcine) (Heparin) 5,000 unit SUB-Q Q8HR [facility] Last Admin: 08/18/16 05:22 Dose: 5,000 unit Magnesium Sulfate (Magnesium Sulfate 2gm/50ml) 2 gm in 50 mls @ 100 mls/hr IV ONCE [facility] Last Admin: 08/17/16 15:45 Dose: 100 mls/hr Levofloxacin/Dextrose (Levaquin 750mg/150ml) 750 mg in 150 mls @ 100 mls/hr IV Q24HR [facility] PRN Reason: Protocol Isosorbide Mononitrate (Imdur) 30 mg PO DAILY [facility] Last Admin: 08/18/16 11:31 Dose: Not Given Lisinopril (Zestril) 2.5 mg PO QDAY [facility] Lorazepam (Ativan) 1 mg IV Q2H PRN PRN Reason: Agitation Last Admin: 08/18/16 09:28 Dose: 1 mg Methylprednisolone Sodium Succinate (Solu-Medrol) 125 mg IV Q8H [facility] Last Admin: 08/18/16 09:35 Dose: 125 mg Metoprolol Tartrate (Lopressor) 25 mg PO Q6H [facility] Last Admin: 08/18/16 11:31 Dose: Not Given Nicotine (Habitrol) 21 mg TD QDAY [facility] Oxycodone/Acetaminophen (Percocet 5/325) 1 tab PO QHS PRN PRN Reason: Pain Pantoprazole Sodium (Protonix) 40 mg PO QDAY [facility] Potassium Chloride (K-Dur) 20 meq PO Q12H [facility] Last Admin: 08/18/16 11:30 Dose: Not Given Sucralfate (Carafate) 1 gm PO BID [facility] Last Admin: 08/18/16 11:31 Dose: Not Given Venlafaxine HCl (Effexor) 100 mg PO TIDWM [facility] Review of Systems ROS unobtainable: due to mental status Physical Examination Vital Signs Pulse Ox 98 08/17/16 11:24 Narrative exam: Unable to exam patient as she is pushing me away and not cooperating Results 08/18/16 11:00 08/17/16 15:22 CBC 08/18/16 Range/Units 11:00 Hgb 7.5 L (10.1-14.3) gm/dl Hct 26.2 L (30.3-42.9) % EKG interpretations - EKG Sinus rhythms and dysrhythmias: sinus bradycardia Assessment and Plan 1. Change in mental status suspect narcotic overdose 2. Abnormal EKG with subtle inferior CHRISTINE elevation, these changes are chronic and patient is known to have total occlusion of her right coronary artery 3. CAD S/P recent PCI of the LAD with bare metal stent 4. Chronci back pain with multiple pain medications Plan 1. Continue aspirin 2. Recent echo showed LV EF of 45% 3. No further cardiac evaluation needed at this time 4. Rest per primary team
[2016-08-18] MEDS: PROTONIX PO SCH (11:58)
[2016-08-18] MEDS ORDERED: VENLAFAXINE HCL 100 MG PO SCH (12:00)
[2016-08-18] MEDS: ZESTRIL PO SCH (12:01)
[2016-08-18] MEDS: OYSCO D 500 MG-200 UNIT PO SCH ×2 (12:02→21:50)
[2016-08-18] MEDS: NORVASC PO SCH (12:02)
[2016-08-18] MEDS: EFFEXOR PO SCH ×2 (12:49→18:43)
--- NOTE | 2016-08-18 13:08 | Progress Note ---
Assessment and Plan Assessment and plan: Patient is a 56-year-old female with a history of COPD, CAD, inferior STEMI 4 months ago with totally occluded RCA s/p RUBBER GRINDER of LAD with bare metal stents, Chronic back pain and recurrent admission for narcotic overdose. She presents ER after being found delirious with acute respiratory failure. She was recently admitted to the hospital where she was intubated for about a week. She during this admission was found to have PCP and her urinalysis. She has remained significantly encephalopathic but with no associated nausea vomiting or diarrhea. She does have audible wheezing. She is also noted to have a positive troponin. * Acute toxic encephalopathy likely secondary to PCP * CAD status post recent PCI to LAD. Known to have totally occluded RCA * Iron deficiency anemia, recent GI bleed status post endoscopy * Acute on chronic respiratory failure * Chronic opioid dependence * Acute psychosis * Depression * Dyslipidemia Plan * Continue supportive care, continue safety precautions * Check ABG to ensure no recurrent hypercapnia. * We'll obtain a psych evaluation * Cardiology input noted * We'll monitor blood counts. Previous EGD showed retained food and also history of gastric surgery but no evidence or stigmata of bleed. * Continue when necessary BiPAP, DuoNeb's, Levaquin was initiated with pulmonary input. * Continue home medications. Avoid opioid medications at this point. * DVT and GI prophylaxis * I've discussed extensively with the family who were at the bedside and also our caretakers for this patient. Will update as needed information become available. * We'll request further records from the pain physician Dr. Rigo Black. History Interval history: Patient seen and examined, yelling and screaming with acute psychosis. Hospitalist Physical - Physical exam Narrative exam: VITAL SIGNS: Reviewed. GENERAL: The patient appeared older than stated age, confused and agitated.. Vital signs as documented. HEAD: No signs of head trauma. EYES: Pupils are equal. Extraocular motions intact. EARS: Hearing grossly intact. MOUTH: Oropharynx is normal. NECK: No adenopathy, no JVD. CHEST: Chest with clear breath sounds bilaterally. No wheezes, rales, or rhonchi. CARDIAC: Regular rate and rhythm. S1 and S2, without murmurs, gallops, or rubs. VASCULAR: No Edema. Peripheral pulses normal and equal in all extremities. ABDOMEN: Soft, without detectable tenderness. No sign of distention. No rebound or guarding, and no masses palpated. Bowel Sounds normal. MUSCULOSKELETAL: Good range of motion of all major joints. Extremities without clubbing, cyanosis or edema. NEUROLOGIC EXAM: Awake and confused she is not answering questions or following commands. She is all dose he developed pulling lines trying to get out of bed speech is normal. PSYCHIATRIC: Mood normal. SKIN: Well-healed surgical scar on the back. - Constitutional Vitals: Temp Pulse Resp BP Pulse Ox 97.6 F 64 20 120/56 89 08/18/16 04:29 08/18/16 09:48 08/18/16 09:48 08/18/16 04:29 08/18/16 12:51 General appearance: Present: no acute distress, well-nourished Results - Labs CBC & Chem 7: 08/18/16 11:00 08/17/16 15:22 Labs: Laboratory Last Values WBC 9.7 K/mm3 (4.5-11.0) 08/17/16 15:22 RBC 3.61 M/mm3 (3.65-5.03) L 08/17/16 15:22 Hgb 7.5 gm/dl (10.1-14.3) L 08/18/16 11:00 Hct 26.2 % (30.3-42.9) L 08/18/16 11:00 MCV 73 fl (79-97) L 08/17/16 15:22 MCH 21 pg (28-32) L 08/17/16 15:22 MCHC 28 % (30-34) L 08/17/16 15:22 RDW 21.3 % (13.2-15.2) H 08/17/16 15:22 Plt Count 279 K/mm3 (140-440) 08/17/16 15:22 Lymph % (Auto) 9.6 % (13.4-35.0) L 08/17/16 15:22 [place] % (Auto) 10.8 % (0.0-7.3) H 08/17/16 15:22 Eos % (Auto) 1.6 % (0.0-4.3) 08/17/16 15:22 Baso % (Auto) 0.4 % (0.0-1.8) 08/17/16 15:22 Lymph # 0.9 K/mm3 (1.2-5.4) L 08/17/16 15:22 [place] # 1.1 K/mm3 (0.0-0.8) H 08/17/16 15:22 Eos # 0.2 K/mm3 (0.0-0.4) 08/17/16 15:22 Baso # 0.0 K/mm3 (0.0-0.1) 08/17/16 15:22 Seg Neutrophils % 77.6 % (40.0-70.0) H 08/17/16 15:22 Seg Neutrophils # 7.5 K/mm3 (1.8-7.7) 08/17/16 15:22 PT 14.5 Sec. (12.2-14.9) 08/17/16 15:22 INR 1.14 (0.87-1.13) H 08/17/16 15:22 POC ABG pH 7.445 (7.35-7.45) 08/17/16 18:47 POC ABG pCO2 41.8 (35-45) 08/17/16 18:47 POC ABG pO2 69 (80-105) L 08/17/16 18:47 POC ABG HCO3 28.7 08/17/16 18:47 POC ABG Total CO2 30 08/17/16 18:47 POC ABG O2 Sat 94 08/17/16 18:47 POC ABG Base Excess 5 08/17/16 18:47 FiO2 30 % 08/17/16 18:47 Potassium 4.2 mmol/L (3.6-5.0) D 08/17/16 15:22 Carbon Dioxide 28 mmol/L (22-30) 08/17/16 15:22 BUN 6 mg/dL (7-17) L 08/17/16 15:22 Creatinine 0.6 mg/dL (0.7-1.2) L 08/17/16 15:22 Estimated GFR > 60 ml/min 08/17/16 15:22 BUN/Creatinine Ratio 10.00 % 08/17/16 15:22 Glucose 94 mg/dL (65-100) 08/17/16 15:22 Lactic Acid 1.00 mmol/L (0.7-2.0) 08/17/16 15:22 Calcium 8.5 mg/dL (8.4-10.2) 08/17/16 15:22 Magnesium 1.90 mg/dL (1.7-2.3) 08/17/16 15:22 Iron 27 ug/dL (37-170) L 08/18/16 08:54 TIBC 291.20 mcg/dL (250-450) 08/18/16 08:54 % Saturation 9.27 % 08/18/16 08:54 Transferrin 208 mg/dl (192-382) 08/18/16 08:54 Total Bilirubin 0.50 mg/dL (0.1-1.2) 08/17/16 15:22 AST 11 units/L (5-40) 08/17/16 15:22 ALT 15 units/L (7-56) 08/17/16 15:22 Alkaline Phosphatase 63 units/L (35-129) 08/17/16 15:22 Troponin T 0.033 ng/mL (0.00-0.029) H 08/17/16 17:37 Total Protein 5.8 g/dL (6.3-8.2) L 08/17/16 15:22 Albumin 3.4 g/dL (3.9-5) L 08/17/16 15:22 Albumin/Globulin Ratio 1.4 % 08/17/16 15:22 Triglycerides 123 mg/dL (2-149) 08/17/16 15:22 Cholesterol 119 mg/dL (50-199) 08/17/16 15:22 LDL Cholesterol Direct 45 mg/dL (50-130) L 08/17/16 15:22 HDL Cholesterol 50 mg/dL (40-59) 08/17/16 15:22 Cholesterol/HDL Ratio 2.38 % 08/17/16 15:22 Vitamin B12 745.1 pg/mL (211-911) 08/18/16 08:54 Urine Color Yellow (Yellow) 08/17/16 16:02 Urine Turbidity Clear (Clear) 08/17/16 16:02 Urine pH 7.0 (5.0-7.0) 08/17/16 16:02 Ur Specific [place] 1.014 (1.003-1.030) 08/17/16 16:02 Urine Protein 100 mg/dl mg/dL (Negative) 08/17/16 16:02 Urine Glucose (UA) Neg mg/dL (Negative) 08/17/16 16:02 Urine Ketones Neg mg/dL (Negative) 08/17/16 16:02 Urine Blood Neg (Negative) 08/17/16 16:02 Urine Nitrite Neg (Negative) 08/17/16 16:02 Urine Bilirubin Neg (Negative) 08/17/16 16:02 Urine Urobilinogen < 2.0 mg/dL (<2.0) 08/17/16 16:02 Ur Leukocyte Esterase Sm (Negative) 08/17/16 16:02 Urine WBC (Auto) 2.0 /HPF (0.0-6.0) 08/17/16 16:02 Urine RBC (Auto) 2.0 /HPF (0.0-6.0) 08/17/16 16:02 U Epithel Cells (Auto) 1.0 /HPF (0-13.0) 08/17/16 16:02 Urine Bacteria (Auto) 1+ /HPF (Negative) 08/17/16 16:02 Urine Mucus Few /HPF 08/17/16 16:02 Urine Opiates Screen Presumptive negative 08/17/16 16:02 Urine Methadone Screen Presumptive negative 08/17/16 16:02 Ur Barbiturates Screen Presumptive negative 08/17/16 16:02 Ur Phencyclidine Scrn Presumptive positive 08/17/16 16:02 Ur Amphetamines Screen Presumptive negative 08/17/16 16:02 U Benzodiazepines Scrn Presumptive negative 08/17/16 16:02 Urine Cocaine Screen Presumptive negative 08/17/16 16:02 U Marijuana (THC) Screen Presumptive negative 08/17/16 16:02 Drugs of Abuse Note Disclamer 08/17/16 16:02
[2016-08-18 13:17] LABS: ISTAT Base Excess 2; ISTAT HCO3 28.2; ISTAT PCO2 52.1 (35-45); ISTAT PH 7.341 (7.35-7.45); ISTAT PO2 64 (80-105); ISTAT SO2 90; ISTAT TCO2 30
[2016-08-18] MEDS ORDERED: HALDOL IM PRN (13:42)
[2016-08-18] MEDS ORDERED: GEODON IM ONE (13:43)
[2016-08-18] MEDS: LEVAQUIN 750MG/150ML 750 MG/150 ML BAG IV SCH (13:47)
[2016-08-18] MEDS ORDERED: WATER FOR INJ (PF) 10 ML ONE (14:25)
[2016-08-18] MEDS: HABITROL TD SCH (14:47)
--- NOTE | 2016-08-18 15:27 | Consultation ---
History of Present Illness Consult date: 08/18/16 Requesting physician: IRAIDA DE ANDA Reason for consult: other (Acute Respiratory Distress; Hypercapnia) History of present illness: PULMONARY/CCM CONSULT NOTE (Full dictation # [id number]) Please see dictated notes for full details Past History Past Medical History: CAD, hypertension Past Surgical History: Other (back surgery ) Social history: other (Could not be obtained ) Family history: no significant family history Medications and Allergies Allergies Allergy/AdvReac Type Severity Reaction Status Date / Time phenobarbital Allergy Unknown Verified 10/28/14 09:33 Home Medications Medication Instructions Recorded Confirmed Last Taken Type ALBUTEROL Inhaler [ProAir HFA 2 puff IH QID PRN #1 inhalation 10/31/14 08/17/16 1 Day Ago Rx Inhaler] Calc Carb/Vit D 500 mg-200 Uni 2 each PO BID tablet 10/31/14 08/17/16 1 Day Ago Rx [Oysco D 500 mg-200 Unit] Aspirin EC [Aspirin Enteric Coated 81 mg PO QDAY #30 tablet 07/16/16 08/17/16 1 Day Ago Rx TAB] Furosemide [Lasix TAB] 20 mg PO QDAY #30 tablet 07/16/16 08/17/16 1 Day Ago Rx Ipratropium/Albuterol Sulfate 1 ampul IH TIDRT #100 ampul.neb 07/16/16 08/17/16 1 Day Ago Rx [Duoneb 0.5 mg-3 mg/3 ml Soln] Potassium Chloride [K-Dur] 20 meq PO Q12H #30 tablet 07/16/16 08/17/16 1 Day Ago Rx Venlafaxine HCl [Venlafaxine] 100 mg PO TIDWM #30 tablet 07/16/16 08/17/16 1 Day Ago Rx ISOSORBIDE MONOnitrate [Imdur ER] 30 mg PO DAILY 08/08/16 08/17/16 1 Day Ago History Pantoprazole [Protonix TAB] 40 mg PO QDAY 08/08/16 08/17/16 1 Day Ago History Sucralfate 1 gm PO BID 08/08/16 08/17/16 1 Day Ago History amLODIPine [Norvasc] 10 mg PO DAILY 08/08/16 08/17/16 1 Day Ago History AtorvaSTATin [Lipitor] 40 mg PO QHS #30 tablet 08/14/16 08/17/16 Unknown Rx Lisinopril [Zestril TAB] 2.5 mg PO QDAY #30 tablet 08/14/16 08/17/16 Unknown Rx Metoprolol [Lopressor TAB] 25 mg PO Q6H #60 tablet 08/14/16 08/17/16 Unknown Rx Nicotine [Habitrol] 21 mg TD QDAY #30 patch 08/14/16 08/17/16 Unknown Rx oxyCODONE /ACETAMINOPHEN [Percocet 1 tab PO QHS PRN #7 tablet 08/14/16 08/17/16 Unknown Rx 5/325] predniSONE [Deltasone] 20 mg PO QDAY #5 tablet 08/14/16 08/17/16 Unknown Rx Active Meds: Active Medications Albuterol (Proventil) 2.5 mg IH Q3HRT PRN PRN Reason: Shortness Of Breath Albuterol/Ipratropium (Duoneb 0.5 Mg-3 Mg/3 Ml Soln) 1 ampul IH Q6HRT [facility] Last Admin: 08/18/16 13:49 Dose: 1 ampul Amlodipine Besylate (Norvasc) 10 mg PO DAILY [facility] Last Admin: 08/18/16 12:02 Dose: Not Given Aspirin (Halfprin Ec) 81 mg PO QDAY [facility] Last Admin: 08/18/16 11:31 Dose: Not Given Atorvastatin Calcium (Lipitor) 40 mg PO QHS [facility] Calcium/Vitamin D (Oysco D 500 Mg-200 Unit) 2 each PO BID [facility] Last Admin: 08/18/16 12:02 Dose: Not Given Enoxaparin Sodium (Lovenox) 40 mg SUB-Q QDAY@2200 [facility] Furosemide (Lasix) 20 mg PO QDAY [facility] Last Admin: 08/18/16 11:32 Dose: Not Given Heparin Sodium (Porcine) (Heparin) 5,000 unit SUB-Q Q8HR [facility] Last Admin: 08/18/16 14:34 Dose: 5,000 unit Magnesium Sulfate (Magnesium Sulfate 2gm/50ml) 2 gm in 50 mls @ 100 mls/hr IV ONCE [facility] Last Admin: 08/17/16 15:45 Dose: 100 mls/hr Levofloxacin/Dextrose (Levaquin 750mg/150ml) 750 mg in 150 mls @ 100 mls/hr IV Q24HR [facility] PRN Reason: Protocol Last Admin: 08/18/16 13:47 Dose: 100 mls/hr Isosorbide Mononitrate (Imdur) 30 mg PO DAILY [facility] Last Admin: 08/18/16 11:31 Dose: Not Given Lisinopril (Zestril) 2.5 mg PO QDAY [facility] Last Admin: 08/18/16 12:01 Dose: Not Given Lorazepam (Ativan) 1 mg IV Q2H PRN PRN Reason: Agitation Last Admin: 08/18/16 14:25 Dose: 1 mg Methylprednisolone Sodium Succinate (Solu-Medrol) 125 mg IV Q8H [facility] Last Admin: 08/18/16 09:35 Dose: 125 mg Metoprolol Tartrate (Lopressor) 25 mg PO Q6H [facility] Last Admin: 08/18/16 14:44 Dose: Not Given Nicotine (Habitrol) 21 mg TD QDAY [facility] Last Admin: 08/18/16 14:47 Dose: 21 mg Oxycodone/Acetaminophen (Percocet 5/325) 1 tab PO QHS PRN PRN Reason: Pain Pantoprazole Sodium (Protonix) 40 mg PO QDAY [facility] Last Admin: 08/18/16 11:58 Dose: Not Given Potassium Chloride (K-Dur) 20 meq PO Q12H [facility] Last Admin: 08/18/16 11:30 Dose: Not Given Sucralfate (Carafate) 1 gm PO BID [facility] Last Admin: 08/18/16 11:31 Dose: Not Given Venlafaxine HCl (Effexor) 100 mg PO TIDWM [facility] Last Admin: 08/18/16 12:49 Dose: Not Given Physical Examination Vital signs: Vital Signs Pulse Ox 98 08/17/16 11:24 Results - Laboratory Findings CBC and BMP: 08/18/16 11:00 08/17/16 15:22 ABG POC ABG pH 7.341 (7.35-7.45) L 08/18/16 13:00 POC ABG pCO2 52.1 (35-45) H 08/18/16 13:00 POC ABG pO2 64 (80-105) L 08/18/16 13:00 POC ABG HCO3 28.2 08/18/16 13:00 POC ABG Total CO2 30 08/18/16 13:00 POC ABG O2 Sat 90 08/18/16 13:00 PT/INR, D-dimer PT 14.5 Sec. (12.2-14.9) 08/17/16 15:22 INR 1.14 (0.87-1.13) H 08/17/16 15:22 Abnormal lab findings: Abnormal Labs 08/18/16 08/18/16 08/18/16 08:54 11:00 13:00 Hgb 7.5 L Hct 26.2 L POC ABG pH 7.341 L POC ABG pCO2 52.1 H POC ABG pO2 64 L Iron 27 L
[2016-08-18] MEDS ORDERED: ATIVAN IV PRN (17:25)
[2016-08-18] MEDS: HALDOL IV PRN (17:40)
[2016-08-18] MEDS: LOVENOX SUB-Q SCH (21:51)
[2016-08-18] MEDS ORDERED: LOVENOX SUB-Q SCH (22:00)
[2016-08-18 22:49] LABS: ISTAT Base Excess 5; ISTAT HCO3 27.5; ISTAT PCO2 33.3 (35-45); ISTAT PH 7.526 (7.35-7.45); ISTAT PO2 40 (80-105); ISTAT SO2 81; ISTAT TCO2 29
[2016-08-19] MEDS: DUONEB *Not for PRN Use IH SCH ×4 (03:21→19:51)
[2016-08-19] MEDS: LOPRESSOR PO SCH ×4 (03:48→21:50)
[2016-08-19] MEDS: HEPARIN SUB-Q SCH (05:18)
[2016-08-19] MEDS: HALDOL IV PRN ×3 (05:19→20:50)
[2016-08-19] MEDS: LEVAQUIN 750MG/150ML 750 MG/150 ML BAG IV SCH (09:10)
[2016-08-19] MEDS: ZESTRIL PO SCH (09:12)
[2016-08-19] MEDS: HALFPRIN EC PO SCH (09:13)
[2016-08-19] MEDS: IMDUR PO SCH (09:13)
[2016-08-19] MEDS: HABITROL TD SCH (09:13)
[2016-08-19] MEDS: CARAFATE PO SCH ×2 (09:13→21:50)
[2016-08-19] MEDS: PROTONIX PO SCH (09:14)
[2016-08-19] MEDS: LASIX PO SCH (09:14)
[2016-08-19] MEDS: K-DUR PO SCH ×2 (09:14→21:50)
[2016-08-19] MEDS: NORVASC PO SCH (09:14)
[2016-08-19] MEDS: OYSCO D 500 MG-200 UNIT PO SCH ×2 (09:14→21:54)
[2016-08-19] MEDS: EFFEXOR PO SCH ×3 (09:16→18:20)
[2016-08-19] MEDS: ATIVAN IV PRN ×4 (10:22→19:30)
--- NOTE | 2016-08-19 10:26 | Progress Note ---
Assessment and Plan Acute respiratory failure Change in mental status thought secondary to narcotic overdose Abnormal ECG ECG shows Q waves and inferior ST elevation which likely represents the inferior STEMI of 3 months ago, with persistence of ECG abnormalities. Coronary artery disease There is chronic occlusion of the distal right coronary artery, with unsuccessful angioplasty 3 months ago at [facility]. In addition, there is mid LAD stenosis which was treated successfully (06/26/16) with a bare metal stent at [facility]. On aspirin therapy. Plavix recently discontinued given ongoing melena and drop in hemoglobin. Patient has completed 1 month of DAPT post BMS Mild Cardiomyopathy EF 40-45% on echo 06/2016 Hx of COPD on home oxygen Paroxysmal afib currently in sinus rhythm on metoprolol for suppression Chronic pain Conservative cardiac management. Subjective Date of service: 08/19/16 Interval history: No distress noted. Objective Vital Signs Temp Pulse Pulse Pulse Resp Resp BP 08/19/16 09:25 08/19/16 09:18 118 H 20 08/19/16 08:51 119 H 20 08/19/16 03:48 115 H 112/60 08/19/16 03:23 99 H 28 H 08/19/16 03:10 101 H 27 H 08/19/16 00:00 98.4 F 119 H 18 08/18/16 22:55 84 27 H 08/18/16 21:54 112 H 112/58 08/18/16 20:00 97.6 F 118 H 18 08/18/16 19:45 124 H 26 H 08/18/16 19:35 120 H 24 08/18/16 18:15 98.7 F 88 18 08/18/16 17:00 88 29 H 08/18/16 14:00 125 H 26 H 08/18/16 13:44 118 H 118 H 27 H 27 H 08/18/16 13:09 114 H 29 H 08/18/16 12:51 BP Pulse Ox 08/19/16 09:25 92 08/19/16 09:18 08/19/16 08:51 08/19/16 03:48 08/19/16 03:23 08/19/16 03:10 08/19/16 00:00 159/83 100 08/18/16 22:55 92 08/18/16 21:54 08/18/16 20:00 118/57 08/18/16 19:45 94 08/18/16 19:35 08/18/16 18:15 149/71 100 08/18/16 17:00 08/18/16 14:00 08/18/16 13:44 94 08/18/16 13:09 93 08/18/16 12:51 89 - Physical Examination General: No Apparent Distress Cardiac: Positive: Tachycardia - Labs and Meds CBC 08/18/16 Range/Units 11:00 Hgb 7.5 L (10.1-14.3) gm/dl Hct 26.2 L (30.3-42.9) % - EKG Sinus rhythms and dysrhythmias: sinus bradycardia
[2016-08-19] MEDS: PERCOCET 5/325 PO PRN (12:59)
--- NOTE | 2016-08-19 16:23 | Progress Note ---
Assessment and Plan Assessment and plan: Patient is a 56-year-old female with a history of COPD, CAD, inferior STEMI 4 months ago with totally occluded RCA s/p [employer] of LAD with bare metal stents, Chronic back pain and recurrent admission for narcotic overdose. She presents ER after being found delirious with acute respiratory failure. She was recently admitted to the hospital where she was intubated for about a week. She during this admission was found to have PCP and her urinalysis. She has remained significantly encephalopathic but with no associated nausea vomiting or diarrhea. She does have audible wheezing. She is also noted to have a positive troponin. * Acute toxic encephalopathy likely secondary to PCP toxicity * CAD status post recent PCI to LAD. Known to have totally occluded RCA * Iron deficiency anemia, recent GI bleed status post endoscopy * Acute on chronic respiratory failure With hypoxia * Chronic opioid dependence * Acute psychosis * Depression * Dyslipidemia Plan * Continue supportive care, continue safety precautions- remains agitated * ABG noted * BIPAP at night. * Pysch input noted. will use haldol prn as recommended * Per cardiology There is chronic occlusion of the distal right coronary artery , with unsuccessful angioplasty 3 months ago at [facility]. In addition, there is mid LAD stenosis which was treated successfully (06/26/16) with a bare metal stent at [facility]. On aspirin therapy. Plavix recently discontinued given ongoing melena and drop in hemoglobin. Patient has completed 1 month of DAPT post BMS * Cardiology input noted- CONTINUE METOPROLOL * We'll monitor blood counts. Previous EGD showed retained food and also history of gastric surgery but no evidence or stigmata of bleed. * Continue when necessary BiPAP, DuoNeb's, Levaquin was initiated with pulmonary input. * Continue home medications. Avoid opioid medications at this point. * DVT and GI prophylaxis * I've discussed extensively with the family who were at the bedside and also our caretakers for this patient. Will update as needed information become available. * We'll request further records from the pain physician Dr. Rigo Black. . History Interval history: Patient seen and examined, Still with yelling and screaming with acute psychosis. no other acute event reported by nursing staff Hospitalist Physical - Physical exam Narrative exam: VITAL SIGNS: Reviewed. GENERAL: The patient appeared older than stated age, confused and agitated.. Vital signs as documented. HEAD: No signs of head trauma. EYES: Pupils are equal. Extraocular motions intact. EARS: Hearing grossly intact. MOUTH: Oropharynx is normal. NECK: No adenopathy, no JVD. CHEST: Chest with clear breath sounds bilaterally. No wheezes, rales, or rhonchi. CARDIAC: Regular rate and rhythm. S1 and S2, without murmurs, gallops, or rubs. VASCULAR: No Edema. Peripheral pulses normal and equal in all extremities. ABDOMEN: Soft, without detectable tenderness. No sign of distention. No rebound or guarding, and no masses palpated. Bowel Sounds normal. MUSCULOSKELETAL: Good range of motion of all major joints. Extremities without clubbing, cyanosis or edema. NEUROLOGIC EXAM: Awake and confused she is not answering questions or following commands. She is all dose he developed pulling lines trying to get out of bed speech is normal. PSYCHIATRIC: Mood normal. SKIN: Well-healed surgical scar on the back. - Constitutional Vitals: Temp Pulse Resp BP Pulse Ox 98.6 F 89 20 112/60 95 08/19/16 00:00 08/19/16 14:54 08/19/16 14:54 08/19/16 03:48 08/19/16 14:55 General appearance: Present: no acute distress, well-nourished Results - Labs CBC & Chem 7: 08/18/16 11:00 08/17/16 15:22 Labs: Laboratory Last Values WBC 9.7 K/mm3 (4.5-11.0) 08/17/16 15:22 RBC 3.61 M/mm3 (3.65-5.03) L 08/17/16 15:22 Hgb 7.5 gm/dl (10.1-14.3) L 08/18/16 11:00 Hct 26.2 % (30.3-42.9) L 08/18/16 11:00 MCV 73 fl (79-97) L 08/17/16 15:22 MCH 21 pg (28-32) L 08/17/16 15:22 MCHC 28 % (30-34) L 08/17/16 15:22 RDW 21.3 % (13.2-15.2) H 08/17/16 15:22 Plt Count 279 K/mm3 (140-440) 08/17/16 15:22 Lymph % (Auto) 9.6 % (13.4-35.0) L 08/17/16 15:22 [place] % (Auto) 10.8 % (0.0-7.3) H 08/17/16 15:22 Eos % (Auto) 1.6 % (0.0-4.3) 08/17/16 15:22 Baso % (Auto) 0.4 % (0.0-1.8) 08/17/16 15:22 Lymph # 0.9 K/mm3 (1.2-5.4) L 08/17/16 15:22 [place] # 1.1 K/mm3 (0.0-0.8) H 08/17/16 15:22 Eos # 0.2 K/mm3 (0.0-0.4) 08/17/16 15:22 Baso # 0.0 K/mm3 (0.0-0.1) 08/17/16 15:22 Seg Neutrophils % 77.6 % (40.0-70.0) H 08/17/16 15:22 Seg Neutrophils # 7.5 K/mm3 (1.8-7.7) 08/17/16 15:22 PT 14.5 Sec. (12.2-14.9) 08/17/16 15:22 INR 1.14 (0.87-1.13) H 08/17/16 15:22 POC ABG pH 7.526 (7.35-7.45) H 08/18/16 22:11 POC ABG pCO2 33.3 (35-45) L 08/18/16 22:11 POC ABG pO2 40 (80-105) L 08/18/16 22:11 POC ABG HCO3 27.5 08/18/16 22:11 POC ABG Total CO2 29 08/18/16 22:11 POC ABG O2 Sat 81 08/18/16 22:11 POC ABG Base Excess 5 08/18/16 22:11 FiO2 36 % 08/18/16 22:11 Potassium 4.2 mmol/L (3.6-5.0) D 08/17/16 15:22 Carbon Dioxide 28 mmol/L (22-30) 08/17/16 15:22 BUN 6 mg/dL (7-17) L 08/17/16 15:22 Creatinine 0.6 mg/dL (0.7-1.2) L 08/17/16 15:22 Estimated GFR > 60 ml/min 08/17/16 15:22 BUN/Creatinine Ratio 10.00 % 08/17/16 15:22 Glucose 94 mg/dL (65-100) 08/17/16 15:22 Lactic Acid 1.00 mmol/L (0.7-2.0) 08/17/16 15:22 Calcium 8.5 mg/dL (8.4-10.2) 08/17/16 15:22 Phosphorus 3.40 mg/dL (2.5-4.5) 08/18/16 08:54 Magnesium 1.90 mg/dL (1.7-2.3) 08/17/16 15:22 Iron 27 ug/dL (37-170) L 08/18/16 08:54 TIBC 291.20 mcg/dL (250-450) 08/18/16 08:54 % Saturation 9.27 % 08/18/16 08:54 Transferrin 208 mg/dl (192-382) 08/18/16 08:54 Total Bilirubin 0.50 mg/dL (0.1-1.2) 08/17/16 15:22 AST 11 units/L (5-40) 08/17/16 15:22 ALT 15 units/L (7-56) 08/17/16 15:22 Alkaline Phosphatase 63 units/L (35-129) 08/17/16 15:22 Troponin T 0.033 ng/mL (0.00-0.029) H 08/17/16 17:37 Total Protein 5.8 g/dL (6.3-8.2) L 08/17/16 15:22 Albumin 3.4 g/dL (3.9-5) L 08/17/16 15:22 Albumin/Globulin Ratio 1.4 % 08/17/16 15:22 Triglycerides 123 mg/dL (2-149) 08/17/16 15:22 Cholesterol 119 mg/dL (50-199) 08/17/16 15:22 LDL Cholesterol Direct 45 mg/dL (50-130) L 08/17/16 15:22 HDL Cholesterol 50 mg/dL (40-59) 08/17/16 15:22 Cholesterol/HDL Ratio 2.38 % 08/17/16 15:22 Vitamin B12 745.1 pg/mL (211-911) 08/18/16 08:54 Urine Color Yellow (Yellow) 08/17/16 16:02 Urine Turbidity Clear (Clear) 08/17/16 16:02 Urine pH 7.0 (5.0-7.0) 08/17/16 16:02 Ur Specific [place] 1.014 (1.003-1.030) 08/17/16 16:02 Urine Protein 100 mg/dl mg/dL (Negative) 08/17/16 16:02 Urine Glucose (UA) Neg mg/dL (Negative) 08/17/16 16:02 Urine Ketones Neg mg/dL (Negative) 08/17/16 16:02 Urine Blood Neg (Negative) 08/17/16 16:02 Urine Nitrite Neg (Negative) 08/17/16 16:02 Urine Bilirubin Neg (Negative) 08/17/16 16:02 Urine Urobilinogen < 2.0 mg/dL (<2.0) 08/17/16 16:02 Ur Leukocyte Esterase Sm (Negative) 08/17/16 16:02 Urine WBC (Auto) 2.0 /HPF (0.0-6.0) 08/17/16 16:02 Urine RBC (Auto) 2.0 /HPF (0.0-6.0) 08/17/16 16:02 U Epithel Cells (Auto) 1.0 /HPF (0-13.0) 08/17/16 16:02 Urine Bacteria (Auto) 1+ /HPF (Negative) 08/17/16 16:02 Urine Mucus Few /HPF 08/17/16 16:02 Urine Opiates Screen Presumptive negative 08/17/16 16:02 Urine Methadone Screen Presumptive negative 08/17/16 16:02 Ur Barbiturates Screen Presumptive negative 08/17/16 16:02 Ur Phencyclidine Scrn Presumptive positive 08/17/16 16:02 Ur Amphetamines Screen Presumptive negative 08/17/16 16:02 U Benzodiazepines Scrn Presumptive negative 08/17/16 16:02 Urine Cocaine Screen Presumptive negative 08/17/16 16:02 U Marijuana (THC) Screen Presumptive negative 08/17/16 16:02 Drugs of Abuse Note Disclamer 08/17/16 16:02
[2016-08-19] MEDS: LOVENOX SUB-Q SCH (21:49)
--- NOTE | 2016-08-19 23:27 | Progress Note ---
Assessment and Plan Patient sleeping at this time.No acute respiratory distress.On Venturi mask.O2 saturation 95%. BIPAP standby. - Patient Problems (1) Respiratory failure Current Visit: No Status: Acute Qualifiers: Chronicity: C Respiratory failure complication: R Plan to address problem: Preently resting on ventimask Bipap standby Albuterol/atrovent aerosol treatments q 6 hours. Continue I/V solumedral Continue S/C Lovenox. Continue Protonix. Continue Levaquine. (2) COPD (chronic obstructive pulmonary disease) Current Visit: Yes Status: Acute Qualifiers: COPD type: C Chronic bronchitis type: C Emphysema type: E Plan to address problem: Preently resting on ventimask Bipap standby Albuterol/atrovent aerosol treatments q 6 hours. Continue I/V solumedral Continue S/C Lovenox. Continue Protonix. Continue Levaquine. Subjective Date of service: 08/19/16 Interval history: Patient sleeping at this time.No acute respiratory distress.On Venturi mask.O2 saturation 95%. BIPAP standby. Objective Vital Signs - 12hr 08/19/16 08/19/16 08/19/16 14:38 14:54 14:55 Temperature Pulse Rate Pulse Rate [ 90 89 Anterior Bilateral Throughout] Pulse Rate [ From Monitor] Respiratory Rate Respiratory 18 20 Rate [Anterior Bilateral Throughout] Blood Pressure [Left Arm] O2 Sat by Pulse 95 Oximetry 08/19/16 08/19/16 08/19/16 19:48 19:52 20:01 Temperature 98.3 F Pulse Rate Pulse Rate [ 95 H 87 Anterior Bilateral Throughout] Pulse Rate [ 95 H From Monitor] Respiratory 18 Rate Respiratory 21 19 Rate [Anterior Bilateral Throughout] Blood Pressure 117/62 [Left Arm] O2 Sat by Pulse 95 Oximetry 08/19/16 22:45 Temperature Pulse Rate 124 H Pulse Rate [ Anterior Bilateral Throughout] Pulse Rate [ From Monitor] Respiratory Rate Respiratory Rate [Anterior Bilateral Throughout] Blood Pressure [Left Arm] O2 Sat by Pulse Oximetry Constitutional: no acute distress, asleep Eyes: non-icteric ENT: oropharynx moist Neck: supple, no lymphadenopathy Ascultation: Bilateral: diminished breath sounds Cardiovascular: regular rate and rhythm Gastrointestinal: normoactive bowel sounds, soft, non-tender Integumentary: normal Extremities: no cyanosis, no edema, pink and warm Neurologic: other (Patient is in deep sleep art this time.) Psychiatric: other (Patient is in deep sleep at this time.) CBC and BMP: 08/18/16 11:00 08/17/16 15:22 ABG, PT/INR, D-dimer: ABG POC ABG pH 7.526 (7.35-7.45) H 08/18/16 22:11 POC ABG pCO2 33.3 (35-45) L 08/18/16 22:11 POC ABG pO2 40 (80-105) L 08/18/16 22:11 POC ABG HCO3 27.5 08/18/16 22:11 POC ABG Total CO2 29 08/18/16 22:11 POC ABG O2 Sat 81 08/18/16 22:11 PT/INR, D-dimer PT 14.5 Sec. (12.2-14.9) 08/17/16 15:22 INR 1.14 (0.87-1.13) H 08/17/16 15:22 Abnormal lab findings: Abnormal Labs 08/18/16 08/18/16 08/18/16 08:54 11:00 13:00 Hgb 7.5 L Hct 26.2 L POC ABG pH 7.341 L POC ABG pCO2 52.1 H POC ABG pO2 64 L Iron 27 L 08/18/16 22:11 Hgb Hct POC ABG pH 7.526 H POC ABG pCO2 33.3 L POC ABG pO2 40 L Iron Chest x-ray: report reviewed (pulmonary vascular congestion and small pleural effusions.)
[2016-08-20] MEDS: ATIVAN IV PRN ×4 (00:11→21:28)
[2016-08-20] MEDS: DUONEB *Not for PRN Use IH SCH ×4 (01:56→20:17)
[2016-08-20] MEDS: LOPRESSOR PO SCH ×4 (03:08→21:28)
[2016-08-20 06:28] LABS: Mean Corpuscular HGB Conc 29 % (30-34); Mean Corpuscular Volume 73 fl (79-97); Platelet Count 253 K/mm3 (140-440); Red Blood Count 3.54 M/mm3 (3.65-5.03); White Blood Count 5.5 K/mm3 (4.5-11.0)
[2016-08-20 06:32] LABS: Anion Gap 17 mmol/L; BUN/Creatinine Ratio 21.66; Blood Urea Nitrogen 13 mg/dL (7-17); Calcium 8.8 mg/dL (8.4-10.2); Carbon Dioxide 31 mmol/L (22-30); Chloride 109.3 mmol/L (98-107); Glucose 122 mg/dL (65-100); Potassium 3.9 mmol/L (3.6-5.0); Sodium 153 mmol/L (137-145)
[2016-08-20 06:36] LABS: Hemoglobin 7.5 gm/dl (10.1-14.3); Mean Corpuscular Hemoglobin 21 pg (28-32); Red Cell Distribution Width 21.7 % (13.2-15.2)
--- NOTE | 2016-08-20 07:28 | Progress Note ---
Assessment and Plan Acute respiratory failure respiratory treatments per primary Change in mental status thought secondary to narcotic overdose management per primary Abnormal ECG ECG shows Q waves and inferior ST elevation which likely represents the inferior STEMI of 3 months ago, with persistence of ECG abnormalities. Coronary artery disease There is chronic occlusion of the distal right coronary artery, with unsuccessful angioplasty 3 months ago at [facility]. In addition, there is mid LAD stenosis which was treated successfully (06/26/16) with a bare metal stent at [facility]. On aspirin therapy. Plavix recently discontinued given ongoing melena and drop in hemoglobin. Patient has completed 1 month of DAPT post BMS Continue BB, ASA, and high intensity statin Mild Cardiomyopathy EF 40-45% on echo 06/2016 Euvolemic Continue BB and ACEi. Maximize medications as tolerated Hx of COPD on home oxygen Paroxysmal afib currently in sinus rhythm on metoprolol for suppression anticoagulation with aspirin only secondary to melena Chronic pain management per primary Subjective Date of service: 08/20/16 Interval history: No acute events. Resting comfortably. No chest pain or SOB. Objective Vital Signs Temp Pulse Pulse Pulse Resp Resp BP 08/20/16 05:00 98.1 F 92 H 18 110/51 08/20/16 00:21 98.3 F 127 H 18 171/88 08/20/16 00:14 117 H 27 H 08/19/16 22:45 124 H 08/19/16 20:01 87 19 08/19/16 19:52 95 H 21 08/19/16 19:48 98.3 F 95 H 18 117/62 08/19/16 14:55 08/19/16 14:54 89 20 08/19/16 14:38 90 18 08/19/16 09:25 08/19/16 09:18 118 H 20 08/19/16 08:51 119 H 20 Pulse Ox 08/20/16 05:00 97 08/20/16 00:21 98 08/20/16 00:14 94 08/19/16 22:45 08/19/16 20:01 08/19/16 19:52 95 08/19/16 19:48 95 08/19/16 14:55 95 08/19/16 14:54 08/19/16 14:38 08/19/16 09:25 92 08/19/16 09:18 08/19/16 08:51 - Physical Examination General: No Apparent Distress HEENT: Positive: PERRL, EOMI Cardiac: Positive: Reg Rate and Rhythm, S1/S2 Lungs: Positive: Rales Abdomen: Positive: Unremarkable, Soft - Labs and Meds CBC 08/20/16 Range/Units 05:32 WBC 5.5 (4.5-11.0) K/mm3 RBC 3.54 L (3.65-5.03) M/mm3 Hgb 7.5 L (10.1-14.3) gm/dl Hct 26.0 L (30.3-42.9) % Plt Count 253 (140-440) K/mm3 Comprehensive Metabolic Panel 08/20/16 Range/Units 05:32 Sodium 153 H D (137-145) mmol/L Potassium 3.9 (3.6-5.0) mmol/L Chloride 109.3 H (98-107) mmol/L Carbon Dioxide 31 H (22-30) mmol/L BUN 13 (7-17) mg/dL Creatinine 0.6 L (0.7-1.2) mg/dL Glucose 122 H (65-100) mg/dL Calcium 8.8 (8.4-10.2) mg/dL - EKG Sinus rhythms and dysrhythmias: sinus bradycardia
[2016-08-20] MEDS: EFFEXOR PO SCH ×3 (09:58→16:14)
[2016-08-20] MEDS: ZESTRIL PO SCH (09:58)
[2016-08-20] MEDS: CARAFATE PO SCH ×2 (09:58→21:29)
[2016-08-20] MEDS: NORVASC PO SCH (09:59)
[2016-08-20] MEDS: LEVAQUIN 750MG/150ML 750 MG/150 ML BAG IV SCH (09:59)
[2016-08-20] MEDS: IMDUR PO SCH (09:59)
[2016-08-20] MEDS: OYSCO D 500 MG-200 UNIT PO SCH ×2 (09:59→21:28)
[2016-08-20] MEDS: PROTONIX PO SCH (09:59)
[2016-08-20] MEDS: LASIX PO SCH (09:59)
[2016-08-20] MEDS: HALFPRIN EC PO SCH (09:59)
[2016-08-20] MEDS: HABITROL TD SCH (09:59)
[2016-08-20] MEDS: K-DUR PO SCH ×2 (10:01→21:28)
--- NOTE | 2016-08-20 15:54 | Progress Note ---
Assessment and Plan Patient sleeping but also moaning and groning..No acute respiratory distress.On nasal canula 5 litres O2..O2 saturation 99%. BIPAP standby. - Patient Problems (1) Respiratory failure Current Visit: No Status: Acute Qualifiers: Chronicity: C Respiratory failure complication: R Plan to address problem: Preently resting on nasal canula. Bipap standby Albuterol/atrovent aerosol treatments q 6 hours. Continue I/V solumedral Continue S/C Lovenox. Continue Protonix. Continue Levaquine. (2) COPD (chronic obstructive pulmonary disease) Current Visit: Yes Status: Acute Qualifiers: COPD type: C Chronic bronchitis type: C Emphysema type: E Plan to address problem: Preently resting on nasal canula. Bipap standby Albuterol/atrovent aerosol treatments q 6 hours. Continue I/V solumedral Continue S/C Lovenox. Continue Protonix. Continue Levaquine. Subjective Date of service: 08/20/16 Interval history: Patient sleeping but also moaning and groning..No acute respiratory distress.On nasal canula 5 litres O2..O2 saturation 99%. BIPAP standby. Objective Vital Signs - 12hr 08/20/16 08/20/16 08/20/16 05:00 07:47 08:20 Temperature 98.1 F Pulse Rate 82 Pulse Rate [ 118 H Anterior Bilateral Throughout] Pulse Rate [ 92 H From Monitor] Respiratory 18 20 Rate Respiratory 26 H Rate [Anterior Bilateral Throughout] Blood Pressure 110/51 [Left Arm] O2 Sat by Pulse 97 95 Oximetry 08/20/16 08/20/16 08/20/16 08:30 10:00 10:23 Temperature 98.2 F Pulse Rate Pulse Rate [ 115 H Anterior Bilateral Throughout] Pulse Rate [ 109 H From Monitor] Respiratory 18 Rate Respiratory 24 Rate [Anterior Bilateral Throughout] Blood Pressure 146/93 [Left Arm] O2 Sat by Pulse 100 99 Oximetry Constitutional: no acute distress, asleep Eyes: non-icteric ENT: oropharynx moist Neck: supple, no lymphadenopathy Ascultation: Bilateral: diminished breath sounds Cardiovascular: regular rate and rhythm Gastrointestinal: normoactive bowel sounds, soft, non-tender Integumentary: normal Extremities: no cyanosis, no edema, pink and warm Neurologic: other (Patient is in deep sleep art this time.) Psychiatric: other (Patient is in deep sleep at this time.) CBC and BMP: 08/20/16 05:32 08/20/16 05:32 ABG, PT/INR, D-dimer: ABG POC ABG pH 7.526 (7.35-7.45) H 08/18/16 22:11 POC ABG pCO2 33.3 (35-45) L 08/18/16 22:11 POC ABG pO2 40 (80-105) L 08/18/16 22:11 POC ABG HCO3 27.5 08/18/16 22:11 POC ABG Total CO2 29 08/18/16 22:11 POC ABG O2 Sat 81 08/18/16 22:11 PT/INR, D-dimer PT 14.5 Sec. (12.2-14.9) 08/17/16 15:22 INR 1.14 (0.87-1.13) H 08/17/16 15:22 Abnormal lab findings: Abnormal Labs 08/18/16 08/18/16 08/18/16 08:54 11:00 13:00 RBC Hgb 7.5 L Hct 26.2 L MCV MCH MCHC RDW POC ABG pH 7.341 L POC ABG pCO2 52.1 H POC ABG pO2 64 L Sodium Chloride Carbon Dioxide Creatinine Glucose Iron 27 L 08/18/16 08/20/16 08/20/16 22:11 05:32 05:32 RBC 3.54 L Hgb 7.5 L Hct 26.0 L MCV 73 L MCH 21 L MCHC 29 L RDW 21.7 H POC ABG pH 7.526 H POC ABG pCO2 33.3 L POC ABG pO2 40 L Sodium 153 H D Chloride 109.3 H Carbon Dioxide 31 H Creatinine 0.6 L Glucose 122 H Iron
[2016-08-20] MEDS ORDERED: HALDOL IM PRN (17:14)
--- NOTE | 2016-08-20 17:17 | Consultation ---
History of Present Illness - Reason for Consult Consult date: 08/20/16 Reason for consult: Mental Health Evaluation Requesting physician: KELLI HERNÁNDEZ - Chief Complaint Chief complaint: AMS - History of Present Psychiatric Illness 56-year-old female with a history of COPD brought in for resp distress and altered mental status. Today patient is not responsive at this time. Patient is on Bipap. No gestures of SI/HI's. Medications and Allergies Allergies Allergy/AdvReac Type Severity Reaction Status Date / Time phenobarbital Allergy Unknown Verified 10/28/14 09:33 Home Medications Medication Instructions Recorded Confirmed Last Taken Type ALBUTEROL Inhaler [ProAir HFA 2 puff IH QID PRN #1 inhalation 10/31/14 08/17/16 1 Day Ago Rx Inhaler] Calc Carb/Vit D 500 mg-200 Uni 2 each PO BID tablet 10/31/14 08/17/16 1 Day Ago Rx [Oysco D 500 mg-200 Unit] Aspirin EC [Aspirin Enteric Coated 81 mg PO QDAY #30 tablet 07/16/16 08/17/16 1 Day Ago Rx TAB] Furosemide [Lasix TAB] 20 mg PO QDAY #30 tablet 07/16/16 08/17/16 1 Day Ago Rx Ipratropium/Albuterol Sulfate 1 ampul IH TIDRT #100 ampul.neb 07/16/16 08/17/16 1 Day Ago Rx [Duoneb 0.5 mg-3 mg/3 ml Soln] Potassium Chloride [K-Dur] 20 meq PO Q12H #30 tablet 07/16/16 08/17/16 1 Day Ago Rx Venlafaxine HCl [Venlafaxine] 100 mg PO TIDWM #30 tablet 07/16/16 08/17/16 1 Day Ago Rx ISOSORBIDE MONOnitrate [Imdur ER] 30 mg PO DAILY 08/08/16 08/17/16 1 Day Ago History Pantoprazole [Protonix TAB] 40 mg PO QDAY 08/08/16 08/17/16 1 Day Ago History Sucralfate 1 gm PO BID 08/08/16 08/17/16 1 Day Ago History amLODIPine [Norvasc] 10 mg PO DAILY 08/08/16 08/17/16 1 Day Ago History AtorvaSTATin [Lipitor] 40 mg PO QHS #30 tablet 08/14/16 08/17/16 Unknown Rx Lisinopril [Zestril TAB] 2.5 mg PO QDAY #30 tablet 08/14/16 08/17/16 Unknown Rx Metoprolol [Lopressor TAB] 25 mg PO Q6H #60 tablet 08/14/16 08/17/16 Unknown Rx Nicotine [Habitrol] 21 mg TD QDAY #30 patch 08/14/16 08/17/16 Unknown Rx oxyCODONE /ACETAMINOPHEN [Percocet 1 tab PO QHS PRN #7 tablet 08/14/16 08/17/16 Unknown Rx 5/325] predniSONE [Deltasone] 20 mg PO QDAY #5 tablet 08/14/16 08/17/16 Unknown Rx Active Meds: Active Medications Albuterol (Proventil) 2.5 mg IH Q3HRT PRN PRN Reason: Shortness Of Breath Albuterol/Ipratropium (Duoneb 0.5 Mg-3 Mg/3 Ml Soln) 1 ampul IH Q6HRT [facility] Last Admin: 08/20/16 14:11 Dose: 1 ampul Amlodipine Besylate (Norvasc) 10 mg PO DAILY [facility] Last Admin: 08/20/16 09:59 Dose: 10 mg Aspirin (Halfprin Ec) 81 mg PO QDAY [facility] Last Admin: 08/20/16 09:59 Dose: 81 mg Atorvastatin Calcium (Lipitor) 40 mg PO QHS [facility] Last Admin: 08/19/16 21:50 Dose: 40 mg Calcium/Vitamin D (Oysco D 500 Mg-200 Unit) 2 each PO BID [facility] Last Admin: 08/20/16 09:59 Dose: 2 each Enoxaparin Sodium (Lovenox) 40 mg SUB-Q QDAY@2200 [facility] Last Admin: 08/19/16 21:49 Dose: 40 mg Furosemide (Lasix) 20 mg PO QDAY [facility] Last Admin: 08/20/16 09:59 Dose: 20 mg Haloperidol Lactate (Haldol) 2 mg IM Q6H PRN PRN Reason: Agitation Magnesium Sulfate (Magnesium Sulfate 2gm/50ml) 2 gm in 50 mls @ 100 mls/hr IV ONCE [facility] Last Admin: 08/17/16 15:45 Dose: 100 mls/hr Isosorbide Mononitrate (Imdur) 30 mg PO DAILY [facility] Last Admin: 08/20/16 09:59 Dose: 30 mg Levofloxacin (Levaquin) 750 mg PO Q24HR [facility] Lisinopril (Zestril) 2.5 mg PO QDAY [facility] Last Admin: 08/20/16 09:58 Dose: 2.5 mg Lorazepam (Ativan) 2 mg IV Q1HR PRN PRN Reason: CIWA-Ar 8-15 Last Admin: 08/20/16 11:29 Dose: 2 mg Lorazepam (Ativan) 2 mg IV Q2H PRN PRN Reason: Agitation Last Admin: 08/19/16 03:35 Dose: 2 mg Methylprednisolone Sodium Succinate (Solu-Medrol) 125 mg IV Q8H [facility] Last Admin: 08/20/16 16:13 Dose: 125 mg Metoprolol Tartrate (Lopressor) 25 mg PO Q6H [facility] Last Admin: 08/20/16 16:13 Dose: 25 mg Nicotine (Habitrol) 21 mg TD QDAY [facility] Last Admin: 08/20/16 09:59 Dose: 21 mg Oxycodone/Acetaminophen (Percocet 5/325) 1 tab PO QHS PRN PRN Reason: Pain Last Admin: 08/19/16 12:59 Dose: 1 tab Pantoprazole Sodium (Protonix) 40 mg PO QDAY [facility] Last Admin: 08/20/16 09:59 Dose: 40 mg Potassium Chloride (K-Dur) 20 meq PO Q12H [facility] Last Admin: 08/20/16 10:01 Dose: 20 meq Sucralfate (Carafate) 1 gm PO BID [facility] Last Admin: 08/20/16 09:58 Dose: 1 gm Venlafaxine HCl (Effexor) 100 mg PO TIDWM [facility] Last Admin: 08/20/16 16:14 Dose: 100 mg Past psychiatric history - Past Medical History Past Medical History: other (Unable to obtain) Past Surgical History: Other (Unable to obtain) - past Psychiatric treatment and history psychiatric treatment history: Unable to obtain psy hax or fam psy hx. - Social History Social history: other (Unable to obtain) Mental Status Exam - Vital signs Last Vital Signs Temp 98.2 F 08/20/16 10:23 Pulse 112 H 08/20/16 14:21 Resp 20 08/20/16 14:21 BP 146/93 08/20/16 10:23 Pulse Ox 99 08/20/16 10:23 - Exam Narrative exam: Unable to complete MSE. Results Result Diagrams: 08/20/16 05:32 08/20/16 05:32 Abnormal lab results 08/20/16 08/20/16 Range/Units 05:32 05:32 RBC 3.54 L (3.65-5.03) M/mm3 Hgb 7.5 L (10.1-14.3) gm/dl Hct 26.0 L (30.3-42.9) % MCV 73 L (79-97) fl MCH 21 L (28-32) pg MCHC 29 L (30-34) % RDW 21.7 H (13.2-15.2) % Sodium 153 H D (137-145) mmol/L Chloride 109.3 H (98-107) mmol/L Carbon Dioxide 31 H (22-30) mmol/L Creatinine 0.6 L (0.7-1.2) mg/dL Glucose 122 H (65-100) mg/dL All other labs normal. Assessment and Plan Assessment and plan: Impression: Today patient is not responsive at this time. Patient is on Bipap. Medical: Acute Toxic Encephalopathy Recommendation/Plan: Gather collateral information. Initiate Delirium Precautions. Will follow patient until discharge. 1. Frequently reorient patient and involve him/her in their care (simple explanations of procedures, tests, medications). 2. Lights on and shades open during daytime hours. 3. Write date and goals of care in a visible place. 4. Try to avoid unnecessary interruptions to sleep during nighttime hours. 5. Obtain glasses, hearing aids from home if patient uses these at baseline. 6. Avoid medications that may exacerbate delirium (especially narcotics, benzodiazepines, barbiturates, ambien, lunesta, and medications with excessive anticholinergic properties). 7. Use haloperidol 2 mg IM prn q6 hours for physical agitation/aggression 8. PE precautions due to prolonged immobility and GI Prophylaxis 9. D/C restraints when indicate
--- NOTE | 2016-08-20 18:15 | Progress Note ---
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 She presents ER after being found delirious with acute respiratory failure. Her urine drug screen was positive for PCP. She was recently admitted and discharged from the hospital where she was intubated for about a week. . She has remained significantly encephalopathic but with no associated focal deficits or nausea or vomiting or diarrhea. She does have audible wheezing. She is also noted to have a positive troponin. -Acute toxic encephalopathy likely secondary to PCP toxicity -CAD status post recent PCI to LAD. Known to have totally occluded RCA: Cardiology is following, echocardiograms done, report pending -Iron deficiency anemia, recent GI bleed status post endoscopy -Acute on chronic respiratory failure With hypoxia: Pulmonology following, BiPAP as needed -Chronic opioid dependence: Psychiatry to see -Depression: Mental health is following Patient still in restraints and confused History Interval history: Patient seen and examined. Follow up on altered mental status.. Overnight uneventful. No cp, sob, n/v or severe headaches. Imaging, old records, testing, labs, nursing notes reviewed. Hospitalist Physical - Physical exam Narrative exam: GEN: WDWN, NAD, AWAKE, ALERT, confused CVS: RRR, NORMAL S1S2 LUNGS/CHEST: CTA B, NORMAL CHEST EXPANSION B, GOOD AIR ENTRY B ABD: SOFT, NTND, GBS, NO REBOUND OR GUARDING EXT/SKIN: NO SIGNIFICANT EDEMA OR RASH MSK: FROM X 4 EXTREMITIES NEURO: CN 2-12 GROSSLY INTACT, NO new FOCAL DEFICITS PSY: Anxious, in restraints not talking - Constitutional Vitals: Temp Pulse Resp BP Pulse Ox 98.2 F 112 H 20 146/93 99 08/20/16 10:23 08/20/16 14:21 08/20/16 14:21 08/20/16 10:23 08/20/16 10:23 Results - Labs CBC & Chem 7: 08/20/16 05:32 08/20/16 05:32 Labs: Laboratory Last Values WBC 5.5 K/mm3 (4.5-11.0) 08/20/16 05:32 RBC 3.54 M/mm3 (3.65-5.03) L 07/04/17 05:32 Hgb 7.5 gm/dl (10.1-14.3) L 08/20/16 05:32 Hct 26.0 % (30.3-42.9) L 08/20/16 05:32 MCV 73 fl (79-97) L 08/20/16 05:32 MCH 21 pg (28-32) L 08/20/16 05:32 MCHC 29 % (30-34) L 08/20/16 05:32 RDW 21.7 % (13.2-15.2) H 08/20/16 05:32 Plt Count 253 K/mm3 (140-440) 08/20/16 05:32 Lymph % (Auto) 9.6 % (13.4-35.0) L 08/17/16 15:22 [place] % (Auto) 10.8 % (0.0-7.3) H 08/17/16 15:22 Eos % (Auto) 1.6 % (0.0-4.3) 08/17/16 15:22 Baso % (Auto) 0.4 % (0.0-1.8) 08/17/16 15:22 Lymph # 0.9 K/mm3 (1.2-5.4) L 08/17/16 15:22 [place] # 1.1 K/mm3 (0.0-0.8) H 08/17/16 15:22 Eos # 0.2 K/mm3 (0.0-0.4) 08/17/16 15:22 Baso # 0.0 K/mm3 (0.0-0.1) 08/17/16 15:22 Seg Neutrophils % 77.6 % (40.0-70.0) H 08/17/16 15:22 Seg Neutrophils # 7.5 K/mm3 (1.8-7.7) 08/17/16 15:22 PT 14.5 Sec. (12.2-14.9) 08/17/16 15:22 INR 1.14 (0.87-1.13) H 08/17/16 15:22 POC ABG pH 7.526 (7.35-7.45) H 08/18/16 22:11 POC ABG pCO2 33.3 (35-45) L 08/18/16 22:11 POC ABG pO2 40 (80-105) L 08/18/16 22:11 POC ABG HCO3 27.5 08/18/16 22:11 POC ABG Total CO2 29 08/18/16 22:11 POC ABG O2 Sat 81 08/18/16 22:11 POC ABG Base Excess 5 08/18/16 22:11 FiO2 36 % 08/18/16 22:11 Sodium 153 mmol/L (137-145) H D 08/20/16 05:32 Potassium 3.9 mmol/L (3.6-5.0) 08/20/16 05:32 Chloride 109.3 mmol/L (98-107) H 08/20/16 05:32 Carbon Dioxide 31 mmol/L (22-30) H 08/20/16 05:32 Anion Gap 17 mmol/L 08/20/16 05:32 BUN 13 mg/dL (7-17) 08/20/16 05:32 Creatinine 0.6 mg/dL (0.7-1.2) L 08/20/16 05:32 Estimated GFR > 60 ml/min 08/20/16 05:32 BUN/Creatinine Ratio 21.66 % 08/20/16 05:32 Glucose 122 mg/dL (65-100) H 08/20/16 05:32 Lactic Acid 1.00 mmol/L (0.7-2.0) 08/17/16 15:22 Calcium 8.8 mg/dL (8.4-10.2) 08/20/16 05:32 Phosphorus 3.40 mg/dL (2.5-4.5) 08/18/16 08:54 Magnesium 1.90 mg/dL (1.7-2.3) 08/17/16 15:22 Iron 27 ug/dL (37-170) L 08/18/16 08:54 TIBC 291.20 mcg/dL (250-450) 08/18/16 08:54 % Saturation 9.27 % 08/18/16 08:54 Transferrin 208 mg/dl (192-382) 08/18/16 08:54 Total Bilirubin 0.50 mg/dL (0.1-1.2) 08/17/16 15:22 AST 11 units/L (5-40) 08/17/16 15:22 ALT 15 units/L (7-56) 08/17/16 15:22 Alkaline Phosphatase 63 units/L (35-129) 08/17/16 15:22 Troponin T 0.033 ng/mL (0.00-0.029) H 08/17/16 17:37 Total Protein 5.8 g/dL (6.3-8.2) L 08/17/16 15:22 Albumin 3.4 g/dL (3.9-5) L 08/17/16 15:22 Albumin/Globulin Ratio 1.4 % 08/17/16 15:22 Triglycerides 123 mg/dL (2-149) 08/17/16 15:22 Cholesterol 119 mg/dL (50-199) 08/17/16 15:22 LDL Cholesterol Direct 45 mg/dL (50-130) L 08/17/16 15:22 HDL Cholesterol 50 mg/dL (40-59) 08/17/16 15:22 Cholesterol/HDL Ratio 2.38 % 08/17/16 15:22 Vitamin B12 745.1 pg/mL (211-911) 08/18/16 08:54 Urine Color Yellow (Yellow) 08/17/16 16:02 Urine Turbidity Clear (Clear) 08/17/16 16:02 Urine pH 7.0 (5.0-7.0) 08/17/16 16:02 Ur Specific [place] 1.014 (1.003-1.030) 08/17/16 16:02 Urine Protein 100 mg/dl mg/dL (Negative) 08/17/16 16:02 Urine Glucose (UA) Neg mg/dL (Negative) 08/17/16 16:02 Urine Ketones Neg mg/dL (Negative) 08/17/16 16:02 Urine Blood Neg (Negative) 08/17/16 16:02 Urine Nitrite Neg (Negative) 08/17/16 16:02 Urine Bilirubin Neg (Negative) 08/17/16 16:02 Urine Urobilinogen < 2.0 mg/dL (<2.0) 08/17/16 16:02 Ur Leukocyte Esterase Sm (Negative) 08/17/16 16:02 Urine WBC (Auto) 2.0 /HPF (0.0-6.0) 08/17/16 16:02 Urine RBC (Auto) 2.0 /HPF (0.0-6.0) 08/17/16 16:02 U Epithel Cells (Auto) 1.0 /HPF (0-13.0) 08/17/16 16:02 Urine Bacteria (Auto) 1+ /HPF (Negative) 08/17/16 16:02 Urine Mucus Few /HPF 08/17/16 16:02 Urine Opiates Screen Presumptive negative 08/17/16 16:02 Urine Methadone Screen Presumptive negative 08/17/16 16:02 Ur Barbiturates Screen Presumptive negative 08/17/16 16:02 Ur Phencyclidine Scrn Presumptive positive 08/17/16 16:02 Ur Amphetamines Screen Presumptive negative 08/17/16 16:02 U Benzodiazepines Scrn Presumptive negative 08/17/16 16:02 Urine Cocaine Screen Presumptive negative 08/17/16 16:02 U Marijuana (THC) Screen Presumptive negative 08/17/16 16:02 Drugs of Abuse Note Disclamer 08/17/16 16:02
[2016-08-20] MEDS: LOVENOX SUB-Q SCH (21:28)
[2016-08-21] MEDS: DUONEB *Not for PRN Use IH SCH ×4 (02:26→20:19)
[2016-08-21] MEDS: LOPRESSOR PO SCH ×4 (03:20→20:44)
[2016-08-21 06:07] LABS: Mean Corpuscular HGB Conc 29 % (30-34); Mean Corpuscular Volume 72 fl (79-97); Platelet Count 281 K/mm3 (140-440); Red Blood Count 4.47 M/mm3 (3.65-5.03); White Blood Count 10.1 K/mm3 (4.5-11.0)
[2016-08-21 06:14] LABS: Hemoglobin 9.2 gm/dl (10.1-14.3)
[2016-08-21 06:15] LABS: Hematocrit 31.5 % (30.3-42.9); Mean Corpuscular Hemoglobin 21 pg (28-32); Red Cell Distribution Width 22.3 % (13.2-15.2)
[2016-08-21 06:24] LABS: Anion Gap 19 mmol/L; Blood Urea Nitrogen 13 mg/dL (7-17); Calcium 9.4 mg/dL (8.4-10.2); Carbon Dioxide 30 mmol/L (22-30); Chloride 104.3 mmol/L (98-107); Glucose 130 mg/dL (65-100); Potassium 3.8 mmol/L (3.6-5.0); Sodium 149 mmol/L (137-145)
[2016-08-21] MEDS: K-DUR PO SCH ×2 (09:37→20:44)
[2016-08-21] MEDS: EFFEXOR PO SCH ×3 (09:37→16:58)
[2016-08-21] MEDS: HABITROL TD SCH (09:38)
[2016-08-21] MEDS: CARAFATE PO SCH ×2 (09:38→22:17)
[2016-08-21] MEDS: IMDUR PO SCH (09:39)
[2016-08-21] MEDS: LASIX PO SCH (09:39)
[2016-08-21] MEDS: HALFPRIN EC PO SCH (09:39)
[2016-08-21] MEDS: LEVAQUIN PO SCH (09:39)
[2016-08-21] MEDS: PROTONIX PO SCH (09:40)
[2016-08-21] MEDS: ZESTRIL PO SCH (09:40)
[2016-08-21] MEDS: NORVASC PO SCH (09:40)
[2016-08-21] MEDS: OYSCO D 500 MG-200 UNIT PO SCH ×2 (09:40→22:17)
--- NOTE | 2016-08-21 12:24 | Progress Note ---
Assessment and Plan Acute respiratory failure Change in mental status thought secondary to narcotic overdose Abnormal ECG ECG shows Q waves and inferior ST elevation which likely represents the inferior STEMI of 3 months ago, with persistence of ECG abnormalities. Coronary artery disease There is chronic occlusion of the distal right coronary artery, with unsuccessful angioplasty 3 months ago at [facility]. In addition, there is mid LAD stenosis which was treated successfully (06/26/16) with a bare metal stent at [facility]. On aspirin therapy. Plavix recently discontinued given ongoing melena and drop in hemoglobin. Patient has completed 1 month of DAPT post BMS Mild Cardiomyopathy EF 40-45% on echo 06/2016 Hx of COPD on home oxygen Paroxysmal afib currently in sinus rhythm on metoprolol for suppression not on anticoagulation secondary to melena and anemia. On aspirin therapy. Chronic pain Plan: Continue current medical management. Conservative cardiac management. Subjective Date of service: 08/21/16 Interval history: Patient denies chest pain and shortness of breath. Currently in restraints. Objective Vital Signs Temp Pulse Pulse Pulse Resp Resp BP 08/21/16 09:40 151/91 08/21/16 09:39 151/91 08/21/16 09:38 151/91 08/21/16 09:11 116 H 17 08/21/16 09:07 08/21/16 08:58 111 H 18 08/21/16 08:00 99.1 F 117 H 20 08/21/16 04:00 99.0 F 122 H 24 08/21/16 02:33 124 H 28 H 08/21/16 02:27 122 H 24 08/21/16 02:00 121 H 24 08/21/16 00:00 99.3 F 108 H 26 H 08/20/16 22:00 132 H 20 08/20/16 21:21 08/20/16 20:33 112 H 24 08/20/16 20:28 121 H 242 H 08/20/16 20:18 124 H 97 H 08/20/16 20:00 99.2 F 129 H 28 H 08/20/16 16:30 97.9 F 72 20 08/20/16 14:21 112 H 20 08/20/16 14:11 122 H 20 BP Pulse Ox 08/21/16 09:40 08/21/16 09:39 08/21/16 09:38 08/21/16 09:11 07/05/17 09:07 99 08/21/16 08:58 08/21/16 08:00 151/91 97 08/21/16 04:00 148/91 98 08/21/16 02:33 08/21/16 02:27 97 08/21/16 02:00 08/21/16 00:00 139/82 99 08/20/16 22:00 98 08/20/16 21:21 96 08/20/16 20:33 08/20/16 20:28 98 08/20/16 20:18 08/20/16 20:00 129/82 98 08/20/16 16:30 141/65 90 08/20/16 14:21 08/20/16 14:11 - Physical Examination General: No Apparent Distress HEENT: Positive: PERRL Neck: Positive: trachea midline Cardiac: Positive: Reg Rate and Rhythm - Labs and Meds CBC 08/21/16 Range/Units 04:56 WBC 10.1 (4.5-11.0) K/mm3 RBC 4.47 (3.65-5.03) M/mm3 Hgb 9.2 L (10.1-14.3) gm/dl Hct 31.5 (30.3-42.9) % Plt Count 281 (140-440) K/mm3 Comprehensive Metabolic Panel 08/21/16 Range/Units 04:56 Sodium 149 H (137-145) mmol/L Potassium 3.8 (3.6-5.0) mmol/L Chloride 104.3 (98-107) mmol/L Carbon Dioxide 30 (22-30) mmol/L BUN 13 (7-17) mg/dL Creatinine 0.4 L (0.7-1.2) mg/dL Glucose 130 H (65-100) mg/dL Calcium 9.4 (8.4-10.2) mg/dL - EKG Sinus rhythms and dysrhythmias: sinus bradycardia
--- NOTE | 2016-08-21 14:00 | Progress Note ---
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 She presents ER after being found delirious with acute respiratory failure. Her urine drug screen was positive for PCP. She was recently admitted and discharged from the hospital where she was intubated for about a week. . She has remained significantly encephalopathic but with no associated focal deficits or nausea or vomiting or diarrhea. She does have audible wheezing. She is also noted to have a positive troponin. -Acute toxic encephalopathy likely secondary to PCP toxicity -CAD status post recent PCI to LAD. Known to have totally occluded RCA: Cardiology is following, echocardiograms done, report pending -Iron deficiency anemia, recent GI bleed status post endoscopy -Acute on chronic respiratory failure With hypoxia: Pulmonology following, BiPAP as needed -Chronic opioid dependence: Psychiatry to see -Depression: Mental health is following Patient still in restraints and confused BiPAP restarted, pulmonology is following as well as cardiology History Interval history: Patient seen and examined. Follow up on altered mental status.. Overnight uneventful. No cp, sob, n/v or severe headaches. Imaging, old records, testing, labs, nursing notes reviewed. Hospitalist Physical - Physical exam Narrative exam: GEN: ill appearing, unkempt, chronically disabled ill-appearing, NAD, AWAKE, ALERT, orientated x 2, missed year CVS: RRR, NORMAL S1S2 LUNGS/CHEST: Expiratory wheezing bilaterally, NORMAL CHEST EXPANSION B, diminished AIR ENTRY B ABD: SOFT, NTND, GBS, NO REBOUND OR GUARDING EXT/SKIN: NO SIGNIFICANT EDEMA OR RASH MSK: FROM X 4 EXTREMITIES NEURO: CN 2-12 GROSSLY INTACT, NO new FOCAL DEFICITS PSY: Anxious, in restraints - Constitutional Vitals: Temp Pulse Resp BP Pulse Ox 97.7 F 86 20 113/65 94 08/21/16 12:00 08/21/16 12:00 08/21/16 12:00 08/21/16 12:00 08/21/16 12:00 General appearance: Present: no acute distress, well-nourished Results - Labs CBC & Chem 7: 08/21/16 04:56 08/21/16 04:56 Labs: Laboratory Last Values WBC 10.1 K/mm3 (4.5-11.0) 08/21/16 04:56 RBC 4.47 M/mm3 (3.65-5.03) 08/21/16 04:56 Hgb 9.2 gm/dl (10.1-14.3) L 08/21/16 04:56 Hct 31.5 % (30.3-42.9) 08/21/16 04:56 MCV 72 fl (79-97) L 08/21/16 04:56 MCH 21 pg (28-32) L 08/21/16 04:56 MCHC 29 % (30-34) L 08/21/16 04:56 RDW 22.3 % (13.2-15.2) H 08/21/16 04:56 Plt Count 281 K/mm3 (140-440) 08/21/16 04:56 Lymph % (Auto) 9.6 % (13.4-35.0) L 08/17/16 15:22 [place] % (Auto) 10.8 % (0.0-7.3) H 08/17/16 15:22 Eos % (Auto) 1.6 % (0.0-4.3) 08/17/16 15:22 Baso % (Auto) 0.4 % (0.0-1.8) 08/17/16 15:22 Lymph # 0.9 K/mm3 (1.2-5.4) L 08/17/16 15:22 [place] # 1.1 K/mm3 (0.0-0.8) H 08/17/16 15:22 Eos # 0.2 K/mm3 (0.0-0.4) 08/17/16 15:22 Baso # 0.0 K/mm3 (0.0-0.1) 08/17/16 15:22 Seg Neutrophils % 77.6 % (40.0-70.0) H 08/17/16 15:22 Seg Neutrophils # 7.5 K/mm3 (1.8-7.7) 08/17/16 15:22 PT 14.5 Sec. (12.2-14.9) 08/17/16 15:22 INR 1.14 (0.87-1.13) H 08/17/16 15:22 POC ABG pH 7.526 (7.35-7.45) H 08/18/16 22:11 POC ABG pCO2 33.3 (35-45) L 08/18/16 22:11 POC ABG pO2 40 (80-105) L 08/18/16 22:11 POC ABG HCO3 27.5 08/18/16 22:11 POC ABG Total CO2 29 08/18/16 22:11 POC ABG O2 Sat 81 08/18/16 22:11 POC ABG Base Excess 5 08/18/16 22:11 FiO2 36 % 08/18/16 22:11 Sodium 149 mmol/L (137-145) H 08/21/16 04:56 Potassium 3.8 mmol/L (3.6-5.0) 08/21/16 04:56 Chloride 104.3 mmol/L (98-107) 08/21/16 04:56 Carbon Dioxide 30 mmol/L (22-30) 08/21/16 04:56 Anion Gap 19 mmol/L 08/21/16 04:56 BUN 13 mg/dL (7-17) 08/21/16 04:56 Creatinine 0.4 mg/dL (0.7-1.2) L 08/21/16 04:56 Estimated GFR > 60 ml/min 08/21/16 04:56 BUN/Creatinine Ratio 32.50 % 08/21/16 04:56 Glucose 130 mg/dL (65-100) H 08/21/16 04:56 Lactic Acid 1.00 mmol/L (0.7-2.0) 08/17/16 15:22 Calcium 9.4 mg/dL (8.4-10.2) 08/21/16 04:56 Phosphorus 3.40 mg/dL (2.5-4.5) 08/18/16 08:54 Magnesium 1.90 mg/dL (1.7-2.3) 08/17/16 15:22 Iron 27 ug/dL (37-170) L 08/18/16 08:54 TIBC 291.20 mcg/dL (250-450) 08/18/16 08:54 % Saturation 9.27 % 08/18/16 08:54 Transferrin 208 mg/dl (192-382) 08/18/16 08:54 Total Bilirubin 0.50 mg/dL (0.1-1.2) 08/17/16 15:22 AST 11 units/L (5-40) 08/17/16 15:22 ALT 15 units/L (7-56) 08/17/16 15:22 Alkaline Phosphatase 63 units/L (35-129) 08/17/16 15:22 Troponin T 0.033 ng/mL (0.00-0.029) H 08/17/16 17:37 Total Protein 5.8 g/dL (6.3-8.2) L 08/17/16 15:22 Albumin 3.4 g/dL (3.9-5) L 08/17/16 15:22 Albumin/Globulin Ratio 1.4 % 08/17/16 15:22 Triglycerides 123 mg/dL (2-149) 08/17/16 15:22 Cholesterol 119 mg/dL (50-199) 08/17/16 15:22 LDL Cholesterol Direct 45 mg/dL (50-130) L 08/17/16 15:22 HDL Cholesterol 50 mg/dL (40-59) 08/17/16 15:22 Cholesterol/HDL Ratio 2.38 % 08/17/16 15:22 Vitamin B12 745.1 pg/mL (211-911) 08/18/16 08:54 RBC Folic Acid >1000 ng/mL (>280) 08/18/16 08:54 Urine Color Yellow (Yellow) 08/17/16 16:02 Urine Turbidity Clear (Clear) 08/17/16 16:02 Urine pH 7.0 (5.0-7.0) 08/17/16 16:02 Ur Specific [place] 1.014 (1.003-1.030) 08/17/16 16:02 Urine Protein 100 mg/dl mg/dL (Negative) 08/17/16 16:02 Urine Glucose (UA) Neg mg/dL (Negative) 08/17/16 16:02 Urine Ketones Neg mg/dL (Negative) 08/17/16 16:02 Urine Blood Neg (Negative) 08/17/16 16:02 Urine Nitrite Neg (Negative) 08/17/16 16:02 Urine Bilirubin Neg (Negative) 08/17/16 16:02 Urine Urobilinogen < 2.0 mg/dL (<2.0) 08/17/16 16:02 Ur Leukocyte Esterase Sm (Negative) 08/17/16 16:02 Urine WBC (Auto) 2.0 /HPF (0.0-6.0) 08/17/16 16:02 Urine RBC (Auto) 2.0 /HPF (0.0-6.0) 08/17/16 16:02 U Epithel Cells (Auto) 1.0 /HPF (0-13.0) 08/17/16 16:02 Urine Bacteria (Auto) 1+ /HPF (Negative) 08/17/16 16:02 Urine Mucus Few /HPF 08/17/16 16:02 Urine Opiates Screen Presumptive negative 08/17/16 16:02 Urine Methadone Screen Presumptive negative 08/17/16 16:02 Ur Barbiturates Screen Presumptive negative 08/17/16 16:02 Ur Phencyclidine Scrn Presumptive positive 08/17/16 16:02 Ur Amphetamines Screen Presumptive negative 08/17/16 16:02 U Benzodiazepines Scrn Presumptive negative 08/17/16 16:02 Urine Cocaine Screen Presumptive negative 08/17/16 16:02 U Marijuana (THC) Screen Presumptive negative 08/17/16 16:02 Drugs of Abuse Note Disclamer 08/17/16 16:02
--- NOTE | 2016-08-21 16:25 | Progress Note ---
Subjective - Reason for Consult Consult date: 08/21/16 Reason for consult: follow up - Chief Complaint Chief complaint: 56-year-old female with a history of COPD brought in for resp distress and altered mental status. Today patient is not responsive at this time. She has Bipap at bedside. She has haldol ordered as needed for agitation but did not receive it during the day prior to the interview. Patient is restrained. Mental Status Exam - Vital signs Last Vital Signs Temp 97.7 F 08/21/16 12:00 Pulse 87 08/21/16 15:38 Resp 16 08/21/16 15:38 BP 113/65 08/21/16 12:00 Pulse Ox 94 08/21/16 12:00 Assessment and Plan Impression: Today patient is not responsive to verbal stimulus at this time. Patient is on Bipap. Medical: Acute Toxic Encephalopathy Recommendation/Plan: Gather collateral information. Initiate Delirium Precautions. Will follow patient until discharge. 1. Frequently reorient patient and involve him/her in their care (simple explanations of procedures, tests, medications). 2. Lights on and shades open during daytime hours. 3. Write date and goals of care in a visible place. 4. Try to avoid unnecessary interruptions to sleep during nighttime hours. 5. Obtain glasses, hearing aids from home if patient uses these at baseline. 6. Avoid medications that may exacerbate delirium (especially narcotics, benzodiazepines, barbiturates, ambien, lunesta, and medications with excessive anticholinergic properties). 7. Use haloperidol 2 mg IM prn q6 hours for physical agitation/aggression 8. PE precautions due to prolonged immobility and GI Prophylaxis 9. D/C restraints when indicate
--- NOTE | 2016-08-21 18:50 | Progress Note ---
Assessment and Plan Patient alert, awake..No acute respiratory distress.On nasal canula 3 litres O2..O2 saturation 97%. BIPAP standby. - Patient Problems (1) Respiratory failure Current Visit: No Status: Acute Qualifiers: Chronicity: C Respiratory failure complication: R Plan to address problem: Preently resting on nasal canula. Bipap standby Albuterol/atrovent aerosol treatments q 6 hours. Continue I/V solumedral Continue S/C Lovenox. Continue Protonix. Continue Levaquine. (2) COPD (chronic obstructive pulmonary disease) Current Visit: Yes Status: Acute Qualifiers: COPD type: C Chronic bronchitis type: C Emphysema type: E Plan to address problem: Preently resting on nasal canula. Bipap standby Albuterol/atrovent aerosol treatments q 6 hours. Continue I/V solumedral Continue S/C Lovenox. Continue Protonix. Continue Levaquine. Subjective Date of service: 08/21/16 Interval history: Patient alert, awake..No acute respiratory distress.On nasal canula 3 litres O2..O2 saturation 97%. BIPAP standby. Objective Vital Signs - 12hr 08/21/16 08/21/16 08/21/16 08:00 08:58 09:07 Temperature 99.1 F Pulse Rate Pulse Rate [ 111 H Anterior Bilateral Throughout] Pulse Rate [ Bilateral Throughout] Pulse Rate [ 117 H From Monitor] Respiratory 20 Rate Respiratory 18 Rate [Anterior Bilateral Throughout] Respiratory Rate [Bilateral Throughout] Blood Pressure Blood Pressure 151/91 [Left Arm] O2 Sat by Pulse 97 99 Oximetry 08/21/16 08/21/16 08/21/16 09:11 09:38 09:39 Temperature Pulse Rate Pulse Rate [ 116 H Anterior Bilateral Throughout] Pulse Rate [ Bilateral Throughout] Pulse Rate [ From Monitor] Respiratory Rate Respiratory 17 Rate [Anterior Bilateral Throughout] Respiratory Rate [Bilateral Throughout] Blood Pressure 151/91 151/91 Blood Pressure [Left Arm] O2 Sat by Pulse Oximetry 08/21/16 08/21/16 08/21/16 09:40 12:00 14:33 Temperature 97.7 F Pulse Rate 79 Pulse Rate [ Anterior Bilateral Throughout] Pulse Rate [ Bilateral Throughout] Pulse Rate [ 86 From Monitor] Respiratory 20 Rate Respiratory Rate [Anterior Bilateral Throughout] Respiratory Rate [Bilateral Throughout] Blood Pressure 151/91 Blood Pressure 113/65 [Left Arm] O2 Sat by Pulse 94 Oximetry 08/21/16 08/21/16 08/21/16 15:28 15:38 16:00 Temperature 97.9 F Pulse Rate Pulse Rate [ 87 Anterior Bilateral Throughout] Pulse Rate [ 86 Bilateral Throughout] Pulse Rate [ 95 H From Monitor] Respiratory 18 Rate Respiratory 16 Rate [Anterior Bilateral Throughout] Respiratory 16 Rate [Bilateral Throughout] Blood Pressure Blood Pressure 110/63 [Left Arm] O2 Sat by Pulse 97 Oximetry 08/21/16 16:29 Temperature Pulse Rate 95 H Pulse Rate [ Anterior Bilateral Throughout] Pulse Rate [ Bilateral Throughout] Pulse Rate [ From Monitor] Respiratory Rate Respiratory Rate [Anterior Bilateral Throughout] Respiratory Rate [Bilateral Throughout] Blood Pressure 110/77 Blood Pressure [Left Arm] O2 Sat by Pulse Oximetry Constitutional: no acute distress, alert Eyes: non-icteric ENT: oropharynx moist Neck: supple, no lymphadenopathy Ascultation: Bilateral: diminished breath sounds Cardiovascular: regular rate and rhythm Gastrointestinal: normoactive bowel sounds, soft, non-tender Integumentary: normal Extremities: no cyanosis, no edema, pink and warm Neurologic: other (Patient is in deep sleep art this time.) Psychiatric: other (Patient is in deep sleep at this time.) CBC and BMP: 08/21/16 04:56 08/21/16 04:56 ABG, PT/INR, D-dimer: ABG POC ABG pH 7.526 (7.35-7.45) H 08/18/16 22:11 POC ABG pCO2 33.3 (35-45) L 08/18/16 22:11 POC ABG pO2 40 (80-105) L 08/18/16 22:11 POC ABG HCO3 27.5 08/18/16 22:11 POC ABG Total CO2 29 08/18/16 22:11 POC ABG O2 Sat 81 08/18/16 22:11 PT/INR, D-dimer PT 14.5 Sec. (12.2-14.9) 08/17/16 15:22 INR 1.14 (0.87-1.13) H 08/17/16 15:22 Abnormal lab findings: Abnormal Labs 08/18/16 08/18/16 08/18/16 08:54 11:00 13:00 RBC Hgb 7.5 L Hct 26.2 L MCV MCH MCHC RDW POC ABG pH 7.341 L POC ABG pCO2 52.1 H POC ABG pO2 64 L Sodium Chloride Carbon Dioxide Creatinine Glucose Iron 27 L 08/18/16 08/20/16 08/20/16 22:11 05:32 05:32 RBC 3.54 L Hgb 7.5 L Hct 26.0 L MCV 73 L MCH 21 L MCHC 29 L RDW 21.7 H POC ABG pH 7.526 H POC ABG pCO2 33.3 L POC ABG pO2 40 L Sodium 153 H D Chloride 109.3 H Carbon Dioxide 31 H Creatinine 0.6 L Glucose 122 H Iron 08/21/16 08/21/16 04:56 04:56 RBC Hgb 9.2 L Hct MCV 72 L MCH 21 L MCHC 29 L RDW 22.3 H POC ABG pH POC ABG pCO2 POC ABG pO2 Sodium 149 H Chloride Carbon Dioxide Creatinine 0.4 L Glucose 130 H Iron
[2016-08-21] MEDS: LOVENOX SUB-Q SCH (22:16)
[2016-08-22] MEDS: PERCOCET 5/325 PO PRN ×2 (00:12→21:37)
[2016-08-22] MEDS: DUONEB *Not for PRN Use IH SCH ×4 (02:05→21:53)
[2016-08-22] MEDS: LOPRESSOR PO SCH ×4 (03:30→21:34)
[2016-08-22] MEDS: ATIVAN IV PRN ×2 (03:31→23:33)
[2016-08-22 05:53] LABS: Mean Corpuscular HGB Conc 29 % (30-34); Mean Corpuscular Volume 73 fl (79-97); Platelet Count 228 K/mm3 (140-440); Red Blood Count 4.31 M/mm3 (3.65-5.03); White Blood Count 8.6 K/mm3 (4.5-11.0)
[2016-08-22 05:54] LABS: Hematocrit 31.4 % (30.3-42.9); Hemoglobin 9.2 gm/dl (10.1-14.3); Mean Corpuscular Hemoglobin 21 pg (28-32); Red Cell Distribution Width 22.9 % (13.2-15.2)
[2016-08-22 06:12] LABS: Anion Gap 13 mmol/L; Blood Urea Nitrogen 21 mg/dL (7-17); Calcium 8.9 mg/dL (8.4-10.2); Carbon Dioxide 33 mmol/L (22-30); Glucose 136 mg/dL (65-100); Sodium 146 mmol/L (137-145)
[2016-08-22] MEDS: PROTONIX PO SCH (09:29)
[2016-08-22] MEDS: ZESTRIL PO SCH (09:29)
[2016-08-22] MEDS: HALFPRIN EC PO SCH (09:29)
[2016-08-22] MEDS: HABITROL TD SCH (09:29)
[2016-08-22] MEDS: EFFEXOR PO SCH ×3 (09:29→17:03)
[2016-08-22] MEDS: LASIX PO SCH (09:29)
[2016-08-22] MEDS: OYSCO D 500 MG-200 UNIT PO SCH ×2 (09:30→21:37)
[2016-08-22] MEDS: LEVAQUIN PO SCH (09:30)
[2016-08-22] MEDS: CARAFATE PO SCH ×2 (09:30→21:37)
[2016-08-22] MEDS: IMDUR PO SCH (09:31)
[2016-08-22] MEDS: NORVASC PO SCH (09:31)
[2016-08-22] MEDS: K-DUR PO SCH ×2 (09:32→21:38)
--- NOTE | 2016-08-22 09:43 | XRay Report ---
Chest 2 views. History: COPD. Findings: The heart is borderline in size with normal pulmonary vascularity. There is left lower lobe atelectasis and/or infiltrate in the posterior basal segment. A small left effusion may also be present. No other focal pulmonary abnormalities are seen. The pulmonary vessels are unremarkable. Impression: Left lower lobe retrocardiac infiltrate and/or atelectasis.
--- NOTE | 2016-08-22 10:13 | Progress Note ---
Assessment and Plan Acute respiratory failure Change in mental status thought secondary to narcotic overdose Abnormal ECG ECG shows Q waves and inferior ST elevation which likely represents the inferior STEMI of 3 months ago, with persistence of ECG abnormalities. Coronary artery disease There is chronic occlusion of the distal right coronary artery, with unsuccessful angioplasty 3 months ago at [facility]. In addition, there is mid LAD stenosis which was treated successfully (06/26/16) with a bare metal stent at [facility]. On aspirin therapy. Plavix recently discontinued given ongoing melena and drop in hemoglobin. Patient has completed 1 month of DAPT post BMS Mild Cardiomyopathy EF 40-45% on echo 06/2016 EF improved to 50-55% on echocardiogram this admission Hx of COPD on home oxygen Paroxysmal afib currently in sinus rhythm on metoprolol for suppression not on anticoagulation secondary to melena and anemia. On aspirin therapy. Chronic pain Plan: Continue current medical management. Conservative cardiac management. Subjective Date of service: 08/22/16 Interval history: Awake and alert. No reported cardiac events overnight. Objective Vital Signs Temp Pulse Pulse Pulse Pulse Pulse Resp 08/22/16 09:31 85 08/22/16 09:30 85 08/22/16 09:29 85 08/22/16 08:21 76 08/22/16 08:14 16 08/22/16 07:16 97.7 F 0 L 85 08/22/16 04:52 97.9 F 107 H 20 08/22/16 03:30 107 H 08/22/16 02:15 96 H 08/22/16 02:05 72 08/22/16 01:12 20 08/22/16 00:12 20 08/22/16 00:08 99.0 F 85 20 08/21/16 22:20 08/21/16 22:00 08/21/16 21:09 98.4 F 107 H 20 08/21/16 20:44 107 H 08/21/16 20:29 99 H 08/21/16 20:25 20 08/21/16 20:19 107 H 08/21/16 19:52 86 08/21/16 16:29 95 H 08/21/16 16:00 97.9 F 95 H 18 08/21/16 15:38 87 08/21/16 15:28 86 08/21/16 14:33 79 08/21/16 12:00 97.7 F 86 20 Resp Resp Resp BP BP Pulse Ox 08/22/16 09:31 113/63 08/22/16 09:30 113/63 08/22/16 09:29 113/63 08/22/16 08:21 08/22/16 08:14 08/22/16 07:16 113/63 97 08/22/16 04:52 104/54 97 08/22/16 03:30 104/54 08/22/16 02:15 18 08/22/16 02:05 16 08/22/16 01:12 08/22/16 00:12 08/22/16 00:08 103/60 95 08/21/16 22:20 20 08/21/16 22:00 98 08/21/16 21:09 121/77 97 08/21/16 20:44 121/72 08/21/16 20:29 16 08/21/16 20:25 97 08/21/16 20:19 16 08/21/16 19:52 08/21/16 16:29 110/77 08/21/16 16:00 110/63 97 08/21/16 15:38 16 08/21/16 15:28 16 08/21/16 14:33 08/21/16 12:00 113/65 94 - Physical Examination General: No Apparent Distress HEENT: Positive: PERRL Neck: Positive: trachea midline Cardiac: Positive: Reg Rate and Rhythm - Labs and Meds CBC 08/22/16 Range/Units 05:37 WBC 8.6 (4.5-11.0) K/mm3 RBC 4.31 (3.65-5.03) M/mm3 Hgb 9.2 L (10.1-14.3) gm/dl Hct 31.4 (30.3-42.9) % Plt Count 228 (140-440) K/mm3 Comprehensive Metabolic Panel 08/22/16 Range/Units 05:37 Sodium 146 H (137-145) mmol/L Potassium 4.0 (3.6-5.0) mmol/L Chloride 104.0 (98-107) mmol/L Carbon Dioxide 33 H (22-30) mmol/L BUN 21 H (7-17) mg/dL Creatinine 0.5 L (0.7-1.2) mg/dL Glucose 136 H (65-100) mg/dL Calcium 8.9 (8.4-10.2) mg/dL - EKG Sinus rhythms and dysrhythmias: sinus bradycardia
--- NOTE | 2016-08-22 11:05 | Progress Note ---
Subjective - Reason for Consult Consult date: 08/22/16 Reason for consult: Psychiatry Follow-up - Chief Complaint Chief complaint: "Nonverbal" 56-year-old female with a history of COPD brought in for resp distress and altered mental status. Today patient would open her eyes when her name is called. Patient is still nonverbal. No gestures of SI/Hi's and AVH's. Patient was not in restraints on my arrival to her room. Mental Status Exam - Vital signs Last Vital Signs Temp 98.5 F 08/22/16 08:48 Pulse 85 08/22/16 09:31 Resp 20 08/22/16 08:48 BP 113/63 08/22/16 09:31 Pulse Ox 95 08/22/16 08:48 - Exam Narrative exam: Unable to complete MSE. Assessment and Plan Impression: Today patient would open her eyes when her name is called. No gestures of SI/HI's. Patient is not in restraints. Recommendation/Plan: Contiune Delirium Precautions. 1. Frequently reorient patient and involve him/her in their care (simple explanations of procedures, tests, medications). 2. Lights on and shades open during daytime hours. 3. Write date and goals of care in a visible place. 4. Try to avoid unnecessary interruptions to sleep during nighttime hours. 5. Obtain glasses, hearing aids from home if patient uses these at baseline. 6. Avoid medications that may exacerbate delirium (especially narcotics, benzodiazepines, barbiturates, ambien, lunesta, and medications with excessive anticholinergic properties). 7. Use haloperidol 2 mg IM prn q6 hours for physical agitation/aggression 8. PE precautions due to prolonged immobility and GI Prophylaxis 9. D/C restraints when indicate 10. D/C CIWA Protocol (Ativan) when indicated
[2016-08-22 11:52] LABS: ISTAT Base Excess 11; ISTAT DEVICE 0; ISTAT HCO3 34.4; ISTAT PCO2 45.6 (35-45); ISTAT PH 7.485 (7.35-7.45); ISTAT PO2 53 (80-105); ISTAT SO2 89; ISTAT TCO2 36
--- NOTE | 2016-08-22 13:08 | Progress Note ---
Assessment and Plan - Patient Problems (1) Acute on chronic respiratory failure with hypoxia and hypercapnia Current Visit: Yes Status: Acute Plan to address problem: - continue BIPAP qhs - continue bronchodilators and pulmonary toilet - continue systemic steroids but taper - continue empiric CAP AB's for severe COPD - wean oxygen to keep sats > 92% (2) Acute exacerbation of chronic obstructive pulmonary disease (COPD) Current Visit: Yes Status: Acute Plan to address problem: - as above - add LABA & ICS then change TYLOR to prn (3) Acute psychosis Current Visit: Yes Status: Acute Plan to address problem: - improved - ? secondary to PCP ingestion - consider psych evaluation (4) OD (overdose of drug) Current Visit: Yes Status: Acute Qualifiers: Encounter type: E Injury intent: I Plan to address problem: - recommend psych evaluation (5) Obesity (BMI 30.0-34.9) Current Visit: Yes Status: Chronic Plan to address problem: - weight loss counselled - outpatient sleep clinic f/up Subjective Date of service: 08/22/16 Principal diagnosis: Acute on Chronic Hypercapnic Hypoxemic Respiratory Failure ; Acute Psychosis Interval history: Seen and examined at bedside; 24 hour events reviewed; nursing and respiratory care staff consulted; no adverse overnight events reported to me; resting in bed ; "can i go home"; denies acute chest pains; still with SOB and WEBB; psych evaluation ongoing Objective Vital Signs - 12hr 08/22/16 08/22/16 08/22/16 01:12 02:05 02:15 Temperature Pulse Rate Pulse Rate [ 72 96 H Anterior Bilateral Throughout] Pulse Rate [ From Monitor] Pulse Rate [ Left Radial] Respiratory 20 Rate Respiratory 16 18 Rate [Anterior Bilateral Throughout] Blood Pressure Blood Pressure [Left Arm] O2 Sat by Pulse Oximetry 08/22/16 08/22/16 08/22/16 03:30 04:52 07:16 Temperature 97.9 F 97.7 F Pulse Rate 107 H Pulse Rate [ Anterior Bilateral Throughout] Pulse Rate [ 107 H 0 L From Monitor] Pulse Rate [ 85 Left Radial] Respiratory 20 20 Rate Respiratory Rate [Anterior Bilateral Throughout] Blood Pressure 104/54 Blood Pressure 104/54 113/63 [Left Arm] O2 Sat by Pulse 97 97 Oximetry 08/22/16 08/22/16 08/22/16 07:34 07:45 08:14 Temperature Pulse Rate Pulse Rate [ 74 76 Anterior Bilateral Throughout] Pulse Rate [ From Monitor] Pulse Rate [ Left Radial] Respiratory 16 Rate Respiratory 18 20 Rate [Anterior Bilateral Throughout] Blood Pressure Blood Pressure [Left Arm] O2 Sat by Pulse 97 Oximetry 08/22/16 08/22/16 08/22/16 08:21 08:48 09:29 Temperature 98.5 F Pulse Rate 76 85 Pulse Rate [ Anterior Bilateral Throughout] Pulse Rate [ 80 From Monitor] Pulse Rate [ 80 Left Radial] Respiratory 20 Rate Respiratory Rate [Anterior Bilateral Throughout] Blood Pressure 113/63 Blood Pressure 103/55 [Left Arm] O2 Sat by Pulse 95 Oximetry 08/22/16 08/22/16 09:30 09:31 Temperature Pulse Rate 85 85 Pulse Rate [ Anterior Bilateral Throughout] Pulse Rate [ From Monitor] Pulse Rate [ Left Radial] Respiratory Rate Respiratory Rate [Anterior Bilateral Throughout] Blood Pressure 113/63 113/63 Blood Pressure [Left Arm] O2 Sat by Pulse Oximetry Constitutional: no acute distress, alert Eyes: non-icteric ENT: oropharynx moist Neck: supple, no lymphadenopathy Effort: mildly labored Ascultation: Bilateral: clear, diminished breath sounds Cardiovascular: regular rate and rhythm Gastrointestinal: normoactive bowel sounds, soft, non-tender, non-distended Integumentary: normal Extremities: no cyanosis, no edema, pink and warm, no ischemia or petechiae Neurologic: normal mental status, non-focal exam, pupils equal and round, motor strength normal and Psychiatric: mood appropriate, affect normal CBC and BMP: 08/23/16 05:09 08/23/16 05:09 ABG, PT/INR, D-dimer: ABG POC ABG pH 7.485 (7.35-7.45) H 08/22/16 10:02 POC ABG pCO2 45.6 (35-45) H 08/22/16 10:02 POC ABG pO2 53 (80-105) L 08/22/16 10:02 POC ABG HCO3 34.4 08/22/16 10:02 POC ABG Total CO2 36 08/22/16 10:02 POC ABG O2 Sat 89 08/22/16 10:02 PT/INR, D-dimer PT 14.5 Sec. (12.2-14.9) 08/17/16 15:22 INR 1.14 (0.87-1.13) H 08/17/16 15:22 Abnormal lab findings: Abnormal Labs 08/18/16 08/18/16 08/18/16 08:54 11:00 13:00 RBC Hgb 7.5 L Hct 26.2 L MCV MCH MCHC RDW POC ABG pH 7.341 L POC ABG pCO2 52.1 H POC ABG pO2 64 L Sodium Chloride Carbon Dioxide BUN Creatinine Glucose Iron 27 L 08/18/16 08/20/16 08/20/16 22:11 05:32 05:32 RBC 3.54 L Hgb 7.5 L Hct 26.0 L MCV 73 L MCH 21 L MCHC 29 L RDW 21.7 H POC ABG pH 7.526 H POC ABG pCO2 33.3 L POC ABG pO2 40 L Sodium 153 H D Chloride 109.3 H Carbon Dioxide 31 H BUN Creatinine 0.6 L Glucose 122 H Iron 08/21/16 08/21/16 08/22/16 04:56 04:56 05:37 RBC Hgb 9.2 L 9.2 L Hct MCV 72 L 73 L MCH 21 L 21 L MCHC 29 L 29 L RDW 22.3 H 22.9 H POC ABG pH POC ABG pCO2 POC ABG pO2 Sodium 149 H Chloride Carbon Dioxide BUN Creatinine 0.4 L Glucose 130 H Iron 08/22/16 08/22/16 05:37 10:02 RBC Hgb Hct MCV MCH MCHC RDW POC ABG pH 7.485 H POC ABG pCO2 45.6 H POC ABG pO2 53 L Sodium 146 H Chloride Carbon Dioxide 33 H BUN 21 H Creatinine 0.5 L Glucose 136 H Iron
--- NOTE | 2016-08-22 13:09 | Progress Note ---
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 She presents ER after being found delirious with acute respiratory failure. Her urine drug screen was positive for PCP. She was recently admitted and discharged from the hospital where she was intubated for about a week. . She has remained significantly encephalopathic but with no associated focal deficits or nausea or vomiting or diarrhea. She does have audible wheezing. She is also noted to have a positive troponin. -Acute toxic encephalopathy likely secondary to PCP (phencyclidine) toxicity -CAD status post recent PCI to LAD. Known to have totally occluded RCA: Cardiology is following, echocardiograms done, report pending -Iron deficiency anemia, recent GI bleed status post endoscopy -Acute on chronic respiratory failure With hypoxia: Pulmonology following, BiPAP as needed -Chronic opioid dependence: Psychiatry to see -Depression: Mental health is following I stopped the restraints at 8:40am 08/22/16, mental status has improved. She was 81% on room air, O2 was off by mistake; reestablish 3 L oxygen she went up to 91 % BiPAP off, pulmonology is following as well as cardiology History Interval history: Patient seen and examined. Follow up on altered mental status which has improved. Overnight uneventful. No cp, sob, n/v or severe headaches. Imaging, old records, testing, labs, nursing notes reviewed. Hospitalist Physical - Physical exam Narrative exam: GEN: unkempt, chronically disabled appearing, NAD, AWAKE, ALERT, orientated x 3 CVS: RRR, NORMAL S1S2 LUNGS/CHEST: Expiratory wheezing bilaterally, NORMAL CHEST EXPANSION B, diminished AIR ENTRY B ABD: SOFT, NTND, GBS, NO REBOUND OR GUARDING EXT/SKIN: NO SIGNIFICANT EDEMA OR RASH MSK: FROM X 4 EXTREMITIES NEURO: CN 2-12 GROSSLY INTACT, NO new FOCAL DEFICITS PSY: calm - Constitutional Vitals: Temp Pulse Resp BP Pulse Ox 98.5 F 85 20 113/63 95 08/22/16 08:48 08/22/16 09:31 08/22/16 08:48 08/22/16 09:31 08/22/16 08:48 General appearance: Present: no acute distress, well-nourished Results - Labs CBC & Chem 7: 08/22/16 05:37 08/22/16 05:37 Labs: Laboratory Last Values WBC 8.6 K/mm3 (4.5-11.0) 08/22/16 05:37 RBC 4.31 M/mm3 (3.65-5.03) 08/22/16 05:37 Hgb 9.2 gm/dl (10.1-14.3) L 08/22/16 05:37 Hct 31.4 % (30.3-42.9) 08/22/16 05:37 MCV 73 fl (79-97) L 08/22/16 05:37 MCH 21 pg (28-32) L 08/22/16 05:37 MCHC 29 % (30-34) L 08/22/16 05:37 RDW 22.9 % (13.2-15.2) H 08/22/16 05:37 Plt Count 228 K/mm3 (140-440) 08/22/16 05:37 Lymph % (Auto) 9.6 % (13.4-35.0) L 08/17/16 15:22 [place] % (Auto) 10.8 % (0.0-7.3) H 08/17/16 15:22 Eos % (Auto) 1.6 % (0.0-4.3) 08/17/16 15:22 Baso % (Auto) 0.4 % (0.0-1.8) 08/17/16 15:22 Lymph # 0.9 K/mm3 (1.2-5.4) L 08/17/16 15:22 [place] # 1.1 K/mm3 (0.0-0.8) H 08/17/16 15:22 Eos # 0.2 K/mm3 (0.0-0.4) 08/17/16 15:22 Baso # 0.0 K/mm3 (0.0-0.1) 08/17/16 15:22 Seg Neutrophils % 77.6 % (40.0-70.0) H 08/17/16 15:22 Seg Neutrophils # 7.5 K/mm3 (1.8-7.7) 08/17/16 15:22 PT 14.5 Sec. (12.2-14.9) 08/17/16 15:22 INR 1.14 (0.87-1.13) H 08/17/16 15:22 POC ABG pH 7.485 (7.35-7.45) H 08/22/16 10:02 POC ABG pCO2 45.6 (35-45) H 08/22/16 10:02 POC ABG pO2 53 (80-105) L 08/22/16 10:02 POC ABG HCO3 34.4 08/22/16 10:02 POC ABG Total CO2 36 08/22/16 10:02 POC ABG O2 Sat 89 08/22/16 10:02 POC ABG Base Excess 11 08/22/16 10:02 FiO2 21 % 08/22/16 10:02 Sodium 146 mmol/L (137-145) H 08/22/16 05:37 Potassium 4.0 mmol/L (3.6-5.0) 08/22/16 05:37 Chloride 104.0 mmol/L (98-107) 08/22/16 05:37 Carbon Dioxide 33 mmol/L (22-30) H 08/22/16 05:37 Anion Gap 13 mmol/L 08/22/16 05:37 BUN 21 mg/dL (7-17) H 08/22/16 05:37 Creatinine 0.5 mg/dL (0.7-1.2) L 08/22/16 05:37 Estimated GFR > 60 ml/min 08/22/16 05:37 BUN/Creatinine Ratio 42.00 % 08/22/16 05:37 Glucose 136 mg/dL (65-100) H 08/22/16 05:37 Lactic Acid 1.00 mmol/L (0.7-2.0) 08/17/16 15:22 Calcium 8.9 mg/dL (8.4-10.2) 08/22/16 05:37 Phosphorus 3.40 mg/dL (2.5-4.5) 08/18/16 08:54 Magnesium 1.90 mg/dL (1.7-2.3) 08/17/16 15:22 Iron 27 ug/dL (37-170) L 08/18/16 08:54 TIBC 291.20 mcg/dL (250-450) 08/18/16 08:54 % Saturation 9.27 % 08/18/16 08:54 Transferrin 208 mg/dl (192-382) 08/18/16 08:54 Total Bilirubin 0.50 mg/dL (0.1-1.2) 08/17/16 15:22 AST 11 units/L (5-40) 08/17/16 15:22 ALT 15 units/L (7-56) 08/17/16 15:22 Alkaline Phosphatase 63 units/L (35-129) 08/17/16 15:22 Troponin T 0.033 ng/mL (0.00-0.029) H 08/17/16 17:37 Total Protein 5.8 g/dL (6.3-8.2) L 08/17/16 15:22 Albumin 3.4 g/dL (3.9-5) L 08/17/16 15:22 Albumin/Globulin Ratio 1.4 % 08/17/16 15:22 Triglycerides 123 mg/dL (2-149) 08/17/16 15:22 Cholesterol 119 mg/dL (50-199) 08/17/16 15:22 LDL Cholesterol Direct 45 mg/dL (50-130) L 08/17/16 15:22 HDL Cholesterol 50 mg/dL (40-59) 08/17/16 15:22 Cholesterol/HDL Ratio 2.38 % 08/17/16 15:22 Vitamin B12 745.1 pg/mL (211-911) 08/18/16 08:54 RBC Folic Acid >1000 ng/mL (>280) 08/18/16 08:54 Urine Color Yellow (Yellow) 08/17/16 16:02 Urine Turbidity Clear (Clear) 08/17/16 16:02 Urine pH 7.0 (5.0-7.0) 08/17/16 16:02 Ur Specific [place] 1.014 (1.003-1.030) 08/17/16 16:02 Urine Protein 100 mg/dl mg/dL (Negative) 08/17/16 16:02 Urine Glucose (UA) Neg mg/dL (Negative) 08/17/16 16:02 Urine Ketones Neg mg/dL (Negative) 08/17/16 16:02 Urine Blood Neg (Negative) 08/17/16 16:02 Urine Nitrite Neg (Negative) 08/17/16 16:02 Urine Bilirubin Neg (Negative) 08/17/16 16:02 Urine Urobilinogen < 2.0 mg/dL (<2.0) 08/17/16 16:02 Ur Leukocyte Esterase Sm (Negative) 08/17/16 16:02 Urine WBC (Auto) 2.0 /HPF (0.0-6.0) 08/17/16 16:02 Urine RBC (Auto) 2.0 /HPF (0.0-6.0) 08/17/16 16:02 U Epithel Cells (Auto) 1.0 /HPF (0-13.0) 08/17/16 16:02 Urine Bacteria (Auto) 1+ /HPF (Negative) 08/17/16 16:02 Urine Mucus Few /HPF 08/17/16 16:02 Urine Opiates Screen Presumptive negative 08/17/16 16:02 Urine Methadone Screen Presumptive negative 08/17/16 16:02 Ur Barbiturates Screen Presumptive negative 08/17/16 16:02 Ur Phencyclidine Scrn Presumptive positive 08/17/16 16:02 Ur Amphetamines Screen Presumptive negative 08/17/16 16:02 U Benzodiazepines Scrn Presumptive negative 08/17/16 16:02 Urine Cocaine Screen Presumptive negative 08/17/16 16:02 U Marijuana (THC) Screen Presumptive negative 08/17/16 16:02 Drugs of Abuse Note Disclamer 08/17/16 16:02
[2016-08-22] MEDS: LOVENOX SUB-Q SCH (21:38)
[2016-08-23] MEDS: DUONEB *Not for PRN Use IH SCH ×2 (02:50→08:49)
[2016-08-23] MEDS: LOPRESSOR PO SCH ×2 (03:50→08:43)
[2016-08-23 05:32] LABS: Mean Corpuscular HGB Conc 29 % (30-34); Mean Corpuscular Volume 73 fl (79-97); Platelet Count 209 K/mm3 (140-440); Red Blood Count 4.95 M/mm3 (3.65-5.03); White Blood Count 11.3 K/mm3 (4.5-11.0)
[2016-08-23 05:41] LABS: Hematocrit 35.9 % (30.3-42.9); Hemoglobin 10.5 gm/dl (10.1-14.3); Mean Corpuscular Hemoglobin 21 pg (28-32); Red Cell Distribution Width 23.2 % (13.2-15.2)
[2016-08-23 05:50] LABS: Anion Gap 19 mmol/L; Blood Urea Nitrogen 26 mg/dL (7-17); Carbon Dioxide 28 mmol/L (22-30); Chloride 95.3 mmol/L (98-107); Glucose 182 mg/dL (65-100); Potassium 4.7 mmol/L (3.6-5.0); Sodium 138 mmol/L (137-145)
[2016-08-23] MEDS ORDERED: PERCOCET 5/325 PO PRN (08:30)
[2016-08-23] MEDS: K-DUR PO SCH (08:41)
[2016-08-23] MEDS: EFFEXOR PO SCH (08:42)
[2016-08-23] MEDS: HABITROL TD SCH (09:09)
[2016-08-23] MEDS: OYSCO D 500 MG-200 UNIT PO SCH (09:09)
[2016-08-23] MEDS: CARAFATE PO SCH (09:09)
[2016-08-23] MEDS: IMDUR PO SCH (09:09)
[2016-08-23] MEDS: PROTONIX PO SCH (09:09)
[2016-08-23] MEDS: LEVAQUIN PO SCH (09:09)
[2016-08-23] MEDS: HALFPRIN EC PO SCH (09:09)
[2016-08-23] MEDS: ZESTRIL PO SCH (09:10)
[2016-08-23] MEDS: LASIX PO SCH (09:10)
[2016-08-23] MEDS: NORVASC PO SCH (09:10)
[2016-08-23 10:08] VITALS: BP 98/55
--- NOTE | 2016-08-23 10:18 | Progress Note ---
Assessment and Plan Acute respiratory failure Change in mental status thought secondary to narcotic overdose Abnormal ECG ECG shows Q waves and inferior ST elevation which likely represents the inferior STEMI of 3 months ago, with persistence of ECG abnormalities. Coronary artery disease There is chronic occlusion of the distal right coronary artery, with unsuccessful angioplasty 3 months ago at [facility]. In addition, there is mid LAD stenosis which was treated successfully (06/26/16) with a bare metal stent at [facility]. On aspirin therapy. Plavix recently discontinued given ongoing melena and drop in hemoglobin. Patient has completed 1 month of DAPT post BMS Mild Cardiomyopathy EF 40-45% on echo 06/2016 EF improved to 50-55% on echocardiogram this admission Hx of COPD on home oxygen Paroxysmal afib currently in sinus rhythm on metoprolol for suppression not on anticoagulation secondary to melena and anemia. On aspirin therapy. Chronic pain Conservative cardiac management. Subjective Date of service: 08/23/16 Interval history: Awake and alert. She denies chest pain and shortness of breath. Wants to go home. Objective Vital Signs Temp Pulse Pulse Pulse Pulse Pulse Resp 08/23/16 10:07 98.3 F 89 16 08/23/16 09:10 86 08/23/16 09:09 86 08/23/16 08:43 86 08/23/16 07:30 20 08/23/16 03:50 86 08/23/16 03:12 80 08/23/16 02:58 93 H 08/22/16 23:59 98.5 F 77 18 08/22/16 22:37 20 08/22/16 22:00 94 H 08/22/16 21:52 08/22/16 21:41 08/22/16 21:37 20 08/22/16 21:34 96 H 08/22/16 21:04 96 H 08/22/16 20:00 98.2 F 96 H 18 08/22/16 19:30 22 08/22/16 16:49 115 H 08/22/16 16:33 98.5 F 115 H 155 H 20 08/22/16 14:38 107 H Resp Resp BP BP BP Pulse Ox 08/23/16 10:07 98/55 99 08/23/16 09:10 98/50 08/23/16 09:09 98/50 08/23/16 08:43 98/50 08/23/16 07:30 08/23/16 03:50 98/50 08/23/16 03:12 08/23/16 02:58 18 08/22/16 23:59 98/58 98 08/22/16 22:37 08/22/16 22:00 16 08/22/16 21:52 96 08/22/16 21:41 20 08/22/16 21:37 08/22/16 21:34 115/64 08/22/16 21:04 08/22/16 20:00 115/64 98 08/22/16 19:30 100 08/22/16 16:49 90/50 08/22/16 16:33 90/50 97 08/22/16 14:38 20 - Physical Examination General: No Apparent Distress HEENT: Positive: PERRL Neck: Positive: trachea midline Cardiac: Positive: Reg Rate and Rhythm - Labs and Meds CBC 08/23/16 Range/Units 05:09 WBC 11.3 H (4.5-11.0) K/mm3 RBC 4.95 (3.65-5.03) M/mm3 Hgb 10.5 (10.1-14.3) gm/dl Hct 35.9 (30.3-42.9) % Plt Count 209 (140-440) K/mm3 Comprehensive Metabolic Panel 08/23/16 Range/Units 05:09 Sodium 138 D (137-145) mmol/L Potassium 4.7 (3.6-5.0) mmol/L Chloride 95.3 L (98-107) mmol/L Carbon Dioxide 28 (22-30) mmol/L BUN 26 H (7-17) mg/dL Creatinine 0.8 D (0.7-1.2) mg/dL Glucose 182 H (65-100) mg/dL Calcium 9.0 (8.4-10.2) mg/dL - EKG Sinus rhythms and dysrhythmias: sinus bradycardia
--- NOTE | 2016-08-23 11:34 | Discharge Summary ---
Providers - Providers Date of Admission: 08/17/16 20:20 Date of discharge: 08/23/16 Attending physician: MAXIMINO MCDANIEL 08/18/16 10:45 Consult to Physician [CONS] Routine Consulting Provider: JENNA MATTHEWS Reason For Exam: cardiomyopathy Place consult to:: Dr. Matthews Notified:: Judith AREVALO Was contact made?: Yes If yes, spoke with:: Dr. Elio Reardon Time called:: 11:17 08/18/16 11:43 Consult to Mental Health [CONS] Routine Reason For Exam: acute pyschosis Place consult to:: mental health Notified:: Judith AREVALO Phone number called:: [phone]. [phone] Was contact made?: Yes If yes, spoke with:: Cristhian-mental health Time called:: 12:58 08/18/16 13:45 Consult to Physician [CONS] Routine Consulting Provider: ALLISON GRAY Reason For Exam: Resp distress Place consult to:: Dr. 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 She presents ER after being found delirious with acute respiratory failure. Her urine drug screen was positive for PCP. She was recently admitted and discharged from the hospital where she was intubated for about a week. . She has remained significantly encephalopathic but with no associated focal deficits or nausea or vomiting or diarrhea. She does have audible wheezing. She is also noted to have a positive troponin. -Acute toxic encephalopathy likely secondary to PCP (phencyclidine) toxicity -CAD status post recent PCI to LAD. Known to have totally occluded RCA: Cardiology is following, echocardiograms done, report pending -Iron deficiency anemia, recent GI bleed status post endoscopy -Acute on chronic respiratory failure With hypoxia: Pulmonology following, BiPAP as needed -Chronic opioid dependence: Psychiatry to see -Depression: Mental health is following I stopped the restraints at 8:40am 08/22/16, mental status has improved. She was 81% on room air, O2 was off by mistake; reestablish 3 L oxygen she went up to 91 % Doing well, asking to be discharge, breathing better, back to her mental baseline per pt Disposition: DC-01 TO HOME OR SELFCARE Time spent for discharge: 37 minutes Core Measure Documentation - Palliative Care Palliative Care/ Comfort Measures: Not Applicable - Core Measures Any of the following diagnoses?: none - VTE Discharge Requirements Deep Vein Thrombosis/Pulmonary Embolism Present on Admission: No Has pt received <5 days of overlap therapy or INR<2.0: No Anticoagulant overlap therapy prescribed at discharge: No Contraindication No Overlap Therapy order at DC: Not Indicated Exam - Physical Exam Narrative exam: GEN: unkempt, chronically disabled appearing, NAD, AWAKE, ALERT, orientated x 3 CVS: RRR, NORMAL S1S2 LUNGS/CHEST: Expiratory wheezing bilaterally, NORMAL CHEST EXPANSION B, improved AIR ENTRY B ABD: SOFT, NTND, GBS, NO REBOUND OR GUARDING EXT/SKIN: NO SIGNIFICANT EDEMA OR RASH MSK: FROM X 4 EXTREMITIES NEURO: CN 2-12 GROSSLY INTACT, NO new FOCAL DEFICITS PSY: calm - Constitutional Vitals: Temp Pulse Resp BP Pulse Ox 98.3 F 89 16 98/55 99 08/23/16 10:07 08/23/16 10:07 08/23/16 10:07 08/23/16 10:08/23/16 10:07 Plan Activity: other (no strenous activites until cleared by PCP. ) Follow up with: PRIMARY CARE, [Primary Care Provider] - 3-5 Days Prescriptions: oxyCODONE /ACETAMINOPHEN [Percocet 5/325 mg] 1 tab PO QHS PRN #30 tablet PRN Reason: Pain , Severe (7-10) Levofloxacin [Levaquin] 750 mg PO QDAY #3 tab Nicotine [Habitrol] 21 mg TD QDAY #15 patch predniSONE [Deltasone] 1 dose PO QDAY #1 mo
--- NOTE | 2016-08-23 13:27 | Progress Note ---
Assessment and Plan - Patient Problems (1) Acute on chronic respiratory failure with hypoxia and hypercapnia Status: Acute Plan to address problem: - continue BIPAP qhs - continue bronchodilators and pulmonary toilet - continue systemic steroids but taper - continue empiric CAP AB's for severe COPD - wean oxygen to keep sats > 92% - tobacco abstinence counselled again (2) Acute exacerbation of chronic obstructive pulmonary disease (COPD) Status: Acute Plan to address problem: - as above - added LABA & ICS then change TYLOR to prn (3) Acute psychosis Status: Acute Plan to address problem: - improved - ? secondary to PCP ingestion - psych evaluation noted (4) OD (overdose of drug) Status: Acute Qualifiers: Encounter type: E Injury intent: I Plan to address problem: - s/p psych evaluation (5) Obesity (BMI 30.0-34.9) Status: Chronic Plan to address problem: - weight loss counselled - outpatient sleep clinic f/up Subjective Date of service: 08/23/16 Principal diagnosis: Acute on Chronic Hypercapnic Hypoxemic Respiratory Failure ; Acute Psychosis Interval history: Seen and examined at bedside; 24 hour events reviewed; nursing and respiratory care staff consulted; no adverse overnight events reported to me; resting in bed ; denies acute chest pains or increased SOB Objective Vital Signs - 12hr 08/23/16 08/23/16 08/23/16 02:58 03:12 03:50 Temperature Pulse Rate 80 86 Pulse Rate [ 93 H Anterior Bilateral Throughout] Pulse Rate [ Right] Respiratory Rate Respiratory 18 Rate [Anterior Bilateral Throughout] Blood Pressure 98/50 Blood Pressure [Left Radial Artery] O2 Sat by Pulse Oximetry 08/23/16 08/23/16 08/23/16 07:30 08:43 09:09 Temperature Pulse Rate 86 86 Pulse Rate [ Anterior Bilateral Throughout] Pulse Rate [ Right] Respiratory 20 Rate Respiratory Rate [Anterior Bilateral Throughout] Blood Pressure 98/50 98/50 Blood Pressure [Left Radial Artery] O2 Sat by Pulse Oximetry 08/23/16 08/23/16 08/23/16 09:10 10:00 10:07 Temperature 98.3 F Pulse Rate 86 93 H Pulse Rate [ Anterior Bilateral Throughout] Pulse Rate [ 89 Right] Respiratory 16 Rate Respiratory Rate [Anterior Bilateral Throughout] Blood Pressure 98/50 Blood Pressure 98/55 [Left Radial Artery] O2 Sat by Pulse 99 Oximetry Constitutional: no acute distress, alert Eyes: non-icteric ENT: oropharynx moist Neck: supple, no lymphadenopathy Effort: mildly labored (close to baseline) Ascultation: Bilateral: clear, diminished breath sounds Cardiovascular: regular rate and rhythm Gastrointestinal: normoactive bowel sounds, soft, non-tender, non-distended Integumentary: normal Extremities: no cyanosis, no edema, pink and warm, no ischemia or petechiae Neurologic: normal mental status, non-focal exam, pupils equal and round, motor strength normal and Psychiatric: mood appropriate, affect normal CBC and BMP: 08/23/16 05:09 08/23/16 05:09 ABG, PT/INR, D-dimer: ABG POC ABG pH 7.485 (7.35-7.45) H 08/22/16 10:02 POC ABG pCO2 45.6 (35-45) H 08/22/16 10:02 POC ABG pO2 53 (80-105) L 08/22/16 10:02 POC ABG HCO3 34.4 08/22/16 10:02 POC ABG Total CO2 36 08/22/16 10:02 POC ABG O2 Sat 89 08/22/16 10:02 PT/INR, D-dimer PT 14.5 Sec. (12.2-14.9) 08/17/16 15:22 INR 1.14 (0.87-1.13) H 08/17/16 15:22 Abnormal lab findings: Abnormal Labs 08/18/16 08/18/16 08/18/16 08:54 11:00 13:00 WBC RBC Hgb 7.5 L Hct 26.2 L MCV MCH MCHC RDW POC ABG pH 7.341 L POC ABG pCO2 52.1 H POC ABG pO2 64 L Sodium Chloride Carbon Dioxide BUN Creatinine Glucose Iron 27 L 08/18/16 08/20/16 08/20/16 22:11 05:32 05:32 WBC RBC 3.54 L Hgb 7.5 L Hct 26.0 L MCV 73 L MCH 21 L MCHC 29 L RDW 21.7 H POC ABG pH 7.526 H POC ABG pCO2 33.3 L POC ABG pO2 40 L Sodium 153 H D Chloride 109.3 H Carbon Dioxide 31 H BUN Creatinine 0.6 L Glucose 122 H Iron 0708/21/16 08/22/16 04:56 04:56 05:37 WBC RBC Hgb 9.2 L 9.2 L Hct MCV 72 L 73 L MCH 21 L 21 L MCHC 29 L 29 L RDW 22.3 H 22.9 H POC ABG pH POC ABG pCO2 POC ABG pO2 Sodium 149 H Chloride Carbon Dioxide BUN Creatinine 0.4 L Glucose 130 H Iron 08/22/16 08/22/16 08/23/16 05:37 10:02 05:09 WBC 11.3 H RBC Hgb Hct MCV 73 L MCH 21 L MCHC 29 L RDW 23.2 H POC ABG pH 7.485 H POC ABG pCO2 45.6 H POC ABG pO2 53 L Sodium 146 H Chloride Carbon Dioxide 33 H BUN 21 H Creatinine 0.5 L Glucose 136 H Iron 08/23/16 05:09 WBC RBC Hgb Hct MCV MCH MCHC RDW POC ABG pH POC ABG pCO2 POC ABG pO2 Sodium Chloride 95.3 L Carbon Dioxide BUN 26 H Creatinine Glucose 182 H Iron
[2016-08-23] MEDS ORDERED: DUONEB *Not for PRN Use IH (13:28)
[2016-08-23] MEDS ORDERED: PROVENTIL IH PRN (13:34)
[2016-08-23] MEDS ORDERED: BROVANA NEBU IH SCH (20:00)
== END 2016-08-23 13:30 | disposition home or self-care (01) | DRG 917 ==
LOC: ED 14:48 → 4A 20:20
PROVIDERS: ADMIT Internal Medicine; ATTEND Internal Medicine
PROC: 4A033R1 Measurement of Arterial Saturation, Peripheral, Percutaneous Approach (ICD-10-PCS; principal; 2016-08-17)
PROC: 5A09457 Assistance with Respiratory Ventilation, 24-96 Consecutive Hours, Continuous Positive Airway Pressure (ICD-10-PCS; 2016-08-17)
DX: T40.601A Poisoning by unspecified narcotics, accidental (unintentional), initial encounter (principal); G92 Toxic encephalopathy; J96.01 Acute respiratory failure with hypoxia; J96.02 Acute respiratory failure with hypercapnia; F23 Brief psychotic disorder; J44.1 Chronic obstructive pulmonary disease with (acute) exacerbation; F11.20 Opioid dependence, uncomplicated; I42.9 Cardiomyopathy, unspecified; F32.9 Major depressive disorder, single episode, unspecified; E78.5 Hyperlipidemia, unspecified; D50.9 Iron deficiency anemia, unspecified; I10 Essential (primary) hypertension; K21.9 Gastro-esophageal reflux disease without esophagitis; E66.9 Obesity, unspecified; I11.0 Hypertensive heart disease with heart failure; I50.9 Heart failure, unspecified; E78.2 Mixed hyperlipidemia; F17.200 Nicotine dependence, unspecified, uncomplicated; I25.10 Atherosclerotic heart disease of native coronary artery without angina pectoris; M54.9 Dorsalgia, unspecified; G89.29 Other chronic pain; I48.0 Paroxysmal atrial fibrillation; Z88.8 Allergy status to other drugs, medicaments and biological substances; Z98.61 Coronary angioplasty status; Z68.32 Body mass index [BMI] 32.0-32.9, adult
CPT/HCPCS: 36415; 36600; 71010; 71020; 80048; 80053; 80061; 80307; 81001; 82140; 82607; 82747; 82803; 83550; 83735; 84100; 84484; 85014; 85018; 85025; 85027; 85610; 93005; 93010; 93306; 94640; 94660; 94760; 96365; 96375; A9270-GY; J0610; J1100; J1630; J1644; J1650; J1956; J2060; J2930; J3475; J3486

== ENCOUNTER 2016-09-14 12:42 | Inpatient (IN) | payer MEDICARE ==
--- NOTE | 2016-09-14 13:49 | Emergency Department Report ---
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 Patient is unable to provide any history of present illness. She just cries and moans intermittently and can answer occasional yes and no questions but unable to formulate complete sentences. Her sister lives next door and states that when she came by to bring breakfast she found the patient in this condition. Pt also had her oxygen off and she placed it back on. Patient cries intermittently and appears to be in pain and then goes to sleep. When she wakes up she repeats the cycle again but unable to communicate exactly where she hurts. Patient is dependent on 2 L. Previous medical record was reviewed patient was just admitted here August 17 until August 23 for acute toxic encephalopathy likely due to PCP (positive UDS). Family however, family denies that patient abuses PCP and are concerned that another medication cause a false positive reaction. She required BiPAP for acute on chronic respiratory failure with hypoxia and also intermittent physical restraints. Patient had a totally occluded RCA and received CRANE FOLLOWER of LAD with stent placement in July of this year. - Related Data Home Medications Medication Instructions Recorded Confirmed Last Taken ISOSORBIDE MONOnitrate [Imdur ER] 30 mg PO DAILY 08/08/16 09/14/16 1 Day Ago Pantoprazole [Protonix TAB] 40 mg PO QDAY 08/08/16 09/14/16 1 Day Ago Sucralfate 1 gm PO BID 08/08/16 09/14/16 1 Day Ago amLODIPine [Norvasc] 10 mg PO DAILY 08/08/16 09/14/16 1 Day Ago Previous Rx's Medication Instructions Recorded Last Taken Type ALBUTEROL Inhaler [ProAir HFA 2 puff IH QID PRN #1 inhalation 10/31/14 1 Day Ago Rx Inhaler] Calc Carb/Vit D 500 mg-200 Uni 2 each PO BID tablet 10/31/14 1 Day Ago Rx [Oysco D 500 mg-200 Unit] Aspirin EC [Aspirin Enteric Coated 81 mg PO QDAY #30 tablet 07/16/16 1 Day Ago Rx TAB] Furosemide [Lasix TAB] 20 mg PO QDAY #30 tablet 07/16/16 1 Day Ago Rx Ipratropium/Albuterol Sulfate 1 ampul IH TIDRT #100 ampul.neb 07/16/16 1 Day Ago Rx [DUONEB *Not for PRN Use*] Potassium Chloride [K-Dur] 20 meq PO Q12H #30 tablet 07/16/16 1 Day Ago Rx Venlafaxine HCl [Venlafaxine] 100 mg PO TIDWM #30 tablet 07/16/16 1 Day Ago Rx AtorvaSTATin [Lipitor] 40 mg PO QHS #30 tablet 08/14/16 Unknown Rx Lisinopril [Zestril TAB] 2.5 mg PO QDAY #30 tablet 08/14/16 Unknown Rx Metoprolol [Lopressor TAB] 25 mg PO Q6H #60 tablet 08/14/16 Unknown Rx oxyCODONE /ACETAMINOPHEN [Percocet 1 tab PO QHS PRN #30 tablet 08/23/16 Unknown Rx 5/325 mg] predniSONE [Deltasone] 1 dose PO QDAY #1 mo 08/23/16 Unknown Rx Allergies Allergy/AdvReac Type Severity Reaction Status Date / Time phenobarbital Allergy Unknown Verified 10/28/14 09:33 ED Review of Systems ROS: Stated complaint: BILAT LEG PAIN Other details as noted in HPI Comment: Unobtainable due to pts medical conditions ED Past Medical Hx - Past Medical History Hx Hypertension: Yes Hx Heart Attack/AMI: Yes Hx Congestive Heart Failure: No (patient denies) Hx Diabetes: No Hx Deep Vein Thrombosis: No Hx GERD: Yes Hx Liver Disease: Yes Hx Asthma: No Hx COPD: Yes - Surgical History Hx Coronary Stent: Yes (June 2016) Hx Pacemaker: No Hx Internal Defibrillator: No Additional Surgical History: RONNY, heart stents - Social History Smoking Status: Current Every Day Smoker Substance Use Type: None - Medications Home Medications: Home Medications Medication Instructions Recorded Confirmed Last Taken Type ALBUTEROL Inhaler [ProAir HFA 2 puff IH QID PRN #1 inhalation 10/31/14 09/14/16 1 Day Ago Rx Inhaler] Calc Carb/Vit D 500 mg-200 Uni 2 each PO BID tablet 10/31/14 09/14/16 1 Day Ago Rx [Oysco D 500 mg-200 Unit] Aspirin EC [Aspirin Enteric Coated 81 mg PO QDAY #30 tablet 07/16/16 09/14/16 1 Day Ago Rx TAB] Furosemide [Lasix TAB] 20 mg PO QDAY #30 tablet 07/16/16 09/14/16 1 Day Ago Rx Ipratropium/Albuterol Sulfate 1 ampul IH TIDRT #100 ampul.neb 07/16/16 09/14/16 1 Day Ago Rx [DUONEB *Not for PRN Use*] Potassium Chloride [K-Dur] 20 meq PO Q12H #30 tablet 07/16/16 09/14/16 1 Day Ago Rx Venlafaxine HCl [Venlafaxine] 100 mg PO TIDWM #30 tablet 07/16/16 09/14/16 1 Day Ago Rx ISOSORBIDE MONOnitrate [Imdur ER] 30 mg PO DAILY 08/08/16 09/14/16 1 Day Ago History Pantoprazole [Protonix TAB] 40 mg PO QDAY 08/08/16 09/14/16 1 Day Ago History Sucralfate 1 gm PO BID 08/08/16 09/14/16 1 Day Ago History amLODIPine [Norvasc] 10 mg PO DAILY 08/08/16 09/14/16 1 Day Ago History AtorvaSTATin [Lipitor] 40 mg PO QHS #30 tablet 08/14/16 09/14/16 Unknown Rx Lisinopril [Zestril TAB] 2.5 mg PO QDAY #30 tablet 08/14/16 09/14/16 Unknown Rx Metoprolol [Lopressor TAB] 25 mg PO Q6H #60 tablet 08/14/16 09/14/16 Unknown Rx oxyCODONE /ACETAMINOPHEN [Percocet 1 tab PO QHS PRN #30 tablet 08/23/16 Unknown Rx 5/325 mg] predniSONE [Deltasone] 1 dose PO QDAY #1 mo 08/23/16 09/14/16 Unknown Rx ED Physical Exam - General Limitations: Altered Mental Status - Other Other exam information: General: Limited by depressed mental status Head exam: Atraumatic, normocephalic Eyes exam: Normal appearance, pupils equal reactive to light ENT: Moist mucous membrane, normal oropharynx Neck exam: Normal inspection, full range of motion, no meningismus nontender Respiratory exam: Clear to auscultation bilateral, no wheezes, rales, crackles Cardiovascular: Normal rate and rhythm Abdomen: Soft, nondistended, mild generalized tenderness with palpation Extremity: Full range of motion normal inspection no deformity Back: Normal Inspection, full range of motion, no tenderness Neurologic: Alert, crying intermittently, agitated, moves all extremities, sensation grossly intact Psychiatric: normal affect, normal mood Skin: Warm, dry, intact ED Course Vital Signs 09/14/16 09/14/16 09/14/16 13:03 13:16 13:35 Temperature 98.8 F 98.8 F Pulse Rate 82 82 86 Respiratory 20 20 20 Rate Blood Pressure 125/87 Blood Pressure 125/87 [Left] O2 Sat by Pulse 100 100 100 Oximetry - Lab Data Result diagrams: 09/14/16 13:57 09/14/16 13:57 Lab Results 09/14/16 09/14/16 09/14/16 Range/Units 13:57 13:57 13:57 WBC 8.0 (4.5-11.0) K/mm3 RBC 4.57 (3.65-5.03) M/mm3 Hgb 10.4 (10.1-14.3) gm/dl Hct 34.6 (30.3-42.9) % MCV 76 L (79-97) fl MCH 23 L (28-32) pg MCHC 30 (30-34) % RDW 24.5 H (13.2-15.2) % Plt Count 305 (140-440) K/mm3 Lymph % (Auto) 14.1 (13.4-35.0) % [place] % (Auto) 13.1 H (0.0-7.3) % Eos % (Auto) 1.0 (0.0-4.3) % Baso % (Auto) 0.9 (0.0-1.8) % Lymph # 1.1 L (1.2-5.4) K/mm3 [place] # 1.0 H (0.0-0.8) K/mm3 Eos # 0.1 (0.0-0.4) K/mm3 Baso # 0.1 (0.0-0.1) K/mm3 Seg Neutrophils % 70.9 H (40.0-70.0) % Seg Neutrophils # 5.7 (1.8-7.7) K/mm3 APTT (24.2-36.6) Sec. POC ABG pH (7.35-7.45) POC ABG pCO2 (35-45) POC ABG pO2 (80-105) POC ABG HCO3 POC ABG Total CO2 POC ABG O2 Sat POC ABG Base Excess FiO2 % Sodium 145 (137-145) mmol/L Potassium 4.4 (3.6-5.0) mmol/L Chloride 105.0 (98-107) mmol/L Carbon Dioxide 26 (22-30) mmol/L Anion Gap 18 mmol/L BUN 13 (7-17) mg/dL Creatinine 0.5 L (0.7-1.2) mg/dL Estimated GFR > 60 ml/min BUN/Creatinine Ratio 26.00 % Glucose 103 H (65-100) mg/dL Lactic Acid 0.90 (0.7-2.0) mmol/L Calcium 9.0 (8.4-10.2) mg/dL Total Bilirubin 0.30 (0.1-1.2) mg/dL AST 12 (5-40) units/L ALT 7 (7-56) units/L Alkaline Phosphatase 92 (35-129) units/L Ammonia (25-60) umol/L Total Protein 7.2 (6.3-8.2) g/dL Albumin 3.8 L (3.9-5) g/dL Albumin/Globulin Ratio 1.1 % Lipase (13-60) units/L Urine Color (Yellow) Urine Turbidity (Clear) Urine pH (5.0-7.0) Ur Specific [place] (1.003-1.030) Urine Protein (Negative) mg/dL Urine Glucose (UA) (Negative) mg/dL Urine Ketones (Negative) mg/dL Urine Blood (Negative) Urine Nitrite (Negative) Urine Bilirubin (Negative) Urine Urobilinogen (<2.0) mg/dL Ur Leukocyte Esterase (Negative) Urine WBC (Auto) (0.0-6.0) /HPF Urine RBC (Auto) (0.0-6.0) /HPF U Epithel Cells (Auto) (0-13.0) /HPF Urine Mucus /HPF Salicylates (2.8-20.0) mg/dL Urine Opiates Screen Urine Methadone Screen Acetaminophen (10.0-30.0) ug/mL Ur Barbiturates Screen Ur Phencyclidine Scrn Ur Amphetamines Screen U Benzodiazepines Scrn Urine Cocaine Screen U Marijuana (THC) Screen Drugs of Abuse Note Plasma/Serum Alcohol (0-0.07) gm% 09/14/16 09/14/16 09/14/16 Range/Units 13:57 13:57 13:57 WBC (4.5-11.0) K/mm3 RBC (3.65-5.03) M/mm3 Hgb (10.1-14.3) gm/dl Hct (30.3-42.9) % MCV (79-97) fl MCH (28-32) pg MCHC (30-34) % RDW (13.2-15.2) % Plt Count (140-440) K/mm3 Lymph % (Auto) (13.4-35.0) % [place] % (Auto) (0.0-7.3) % Eos % (Auto) (0.0-4.3) % Baso % (Auto) (0.0-1.8) % Lymph # (1.2-5.4) K/mm3 [place] # (0.0-0.8) K/mm3 Eos # (0.0-0.4) K/mm3 Baso # (0.0-0.1) K/mm3 Seg Neutrophils % (40.0-70.0) % Seg Neutrophils # (1.8-7.7) K/mm3 APTT 31.9 (24.2-36.6) Sec. POC ABG pH (7.35-7.45) POC ABG pCO2 (35-45) POC ABG pO2 (80-105) POC ABG HCO3 POC ABG Total CO2 POC ABG O2 Sat POC ABG Base Excess FiO2 % Sodium (137-145) mmol/L Potassium (3.6-5.0) mmol/L Chloride (98-107) mmol/L Carbon Dioxide (22-30) mmol/L Anion Gap mmol/L BUN (7-17) mg/dL Creatinine (0.7-1.2) mg/dL Estimated GFR ml/min BUN/Creatinine Ratio % Glucose (65-100) mg/dL Lactic Acid (0.7-2.0) mmol/L Calcium (8.4-10.2) mg/dL Total Bilirubin (0.1-1.2) mg/dL AST (5-40) units/L ALT (7-56) units/L Alkaline Phosphatase (35-129) units/L Ammonia 29.0 (25-60) umol/L Total Protein (6.3-8.2) g/dL Albumin (3.9-5) g/dL Albumin/Globulin Ratio % Lipase (13-60) units/L Urine Color (Yellow) Urine Turbidity (Clear) Urine pH (5.0-7.0) Ur Specific [place] (1.003-1.030) Urine Protein (Negative) mg/dL Urine Glucose (UA) (Negative) mg/dL Urine Ketones (Negative) mg/dL Urine Blood (Negative) Urine Nitrite (Negative) Urine Bilirubin (Negative) Urine Urobilinogen (<2.0) mg/dL Ur Leukocyte Esterase (Negative) Urine WBC (Auto) (0.0-6.0) /HPF Urine RBC (Auto) (0.0-6.0) /HPF U Epithel Cells (Auto) (0-13.0) /HPF Urine Mucus /HPF Salicylates < 0.3 L (2.8-20.0) mg/dL Urine Opiates Screen Urine Methadone Screen Acetaminophen (10.0-30.0) ug/mL Ur Barbiturates Screen Ur Phencyclidine Scrn Ur Amphetamines Screen U Benzodiazepines Scrn Urine Cocaine Screen U Marijuana (THC) Screen Drugs of Abuse Note Plasma/Serum Alcohol (0-0.07) gm% 09/14/16 09/14/16 09/14/16 Range/Units 13:57 13:57 13:57 WBC (4.5-11.0) K/mm3 RBC (3.65-5.03) M/mm3 Hgb (10.1-14.3) gm/dl Hct (30.3-42.9) % MCV (79-97) fl MCH (28-32) pg MCHC (30-34) % RDW (13.2-15.2) % Plt Count (140-440) K/mm3 Lymph % (Auto) (13.4-35.0) % [place] % (Auto) (0.0-7.3) % Eos % (Auto) (0.0-4.3) % Baso % (Auto) (0.0-1.8) % Lymph # (1.2-5.4) K/mm3 [place] # (0.0-0.8) K/mm3 Eos # (0.0-0.4) K/mm3 Baso # (0.0-0.1) K/mm3 Seg Neutrophils % (40.0-70.0) % Seg Neutrophils # (1.8-7.7) K/mm3 APTT (24.2-36.6) Sec. POC ABG pH (7.35-7.45) POC ABG pCO2 (35-45) POC ABG pO2 (80-105) POC ABG HCO3 POC ABG Total CO2 POC ABG O2 Sat POC ABG Base Excess FiO2 % Sodium (137-145) mmol/L Potassium (3.6-5.0) mmol/L Chloride (98-107) mmol/L Carbon Dioxide (22-30) mmol/L Anion Gap mmol/L BUN (7-17) mg/dL Creatinine (0.7-1.2) mg/dL Estimated GFR ml/min BUN/Creatinine Ratio % Glucose (65-100) mg/dL Lactic Acid (0.7-2.0) mmol/L Calcium (8.4-10.2) mg/dL Total Bilirubin (0.1-1.2) mg/dL AST (5-40) units/L ALT (7-56) units/L Alkaline Phosphatase (35-129) units/L Ammonia (25-60) umol/L Total Protein (6.3-8.2) g/dL Albumin (3.9-5) g/dL Albumin/Globulin Ratio % Lipase 14 (13-60) units/L Urine Color (Yellow) Urine Turbidity (Clear) Urine pH (5.0-7.0) Ur Specific [place] (1.003-1.030) Urine Protein (Negative) mg/dL Urine Glucose (UA) (Negative) mg/dL Urine Ketones (Negative) mg/dL Urine Blood (Negative) Urine Nitrite (Negative) Urine Bilirubin (Negative) Urine Urobilinogen (<2.0) mg/dL Ur Leukocyte Esterase (Negative) Urine WBC (Auto) (0.0-6.0) /HPF Urine RBC (Auto) (0.0-6.0) /HPF U Epithel Cells (Auto) (0-13.0) /HPF Urine Mucus /HPF Salicylates (2.8-20.0) mg/dL Urine Opiates Screen Urine Methadone Screen Acetaminophen < 15.0 (10.0-30.0) ug/mL Ur Barbiturates Screen Ur Phencyclidine Scrn Ur Amphetamines Screen U Benzodiazepines Scrn Urine Cocaine Screen U Marijuana (THC) Screen Drugs of Abuse Note Plasma/Serum Alcohol < 0.01 (0-0.07) gm% 09/14/16 09/14/16 09/14/16 Range/Units 14:05 14:38 14:38 WBC (4.5-11.0) K/mm3 RBC (3.65-5.03) M/mm3 Hgb (10.1-14.3) gm/dl Hct (30.3-42.9) % MCV (79-97) fl MCH (28-32) pg MCHC (30-34) % RDW (13.2-15.2) % Plt Count (140-440) K/mm3 Lymph % (Auto) (13.4-35.0) % [place] % (Auto) (0.0-7.3) % Eos % (Auto) (0.0-4.3) % Baso % (Auto) (0.0-1.8) % Lymph # (1.2-5.4) K/mm3 [place] # (0.0-0.8) K/mm3 Eos # (0.0-0.4) K/mm3 Baso # (0.0-0.1) K/mm3 Seg Neutrophils % (40.0-70.0) % Seg Neutrophils # (1.8-7.7) K/mm3 APTT (24.2-36.6) Sec. POC ABG pH 7.364 (7.35-7.45) POC ABG pCO2 45.9 H (35-45) POC ABG pO2 83 (80-105) POC ABG HCO3 26.2 POC ABG Total CO2 28 POC ABG O2 Sat 96 POC ABG Base Excess 1 FiO2 28 % Sodium (137-145) mmol/L Potassium (3.6-5.0) mmol/L Chloride (98-107) mmol/L Carbon Dioxide (22-30) mmol/L Anion Gap mmol/L BUN (7-17) mg/dL Creatinine (0.7-1.2) mg/dL Estimated GFR ml/min BUN/Creatinine Ratio % Glucose (65-100) mg/dL Lactic Acid (0.7-2.0) mmol/L Calcium (8.4-10.2) mg/dL Total Bilirubin (0.1-1.2) mg/dL AST (5-40) units/L ALT (7-56) units/L Alkaline Phosphatase (35-129) units/L Ammonia (25-60) umol/L Total Protein (6.3-8.2) g/dL Albumin (3.9-5) g/dL Albumin/Globulin Ratio % Lipase (13-60) units/L Urine Color Yellow (Yellow) Urine Turbidity Clear (Clear) Urine pH 5.0 (5.0-7.0) Ur Specific [place] 1.024 (1.003-1.030) Urine Protein 30 mg/dl (Negative) mg/dL Urine Glucose (UA) Neg (Negative) mg/dL Urine Ketones Tr (Negative) mg/dL Urine Blood Neg (Negative) Urine Nitrite Neg (Negative) Urine Bilirubin Neg (Negative) Urine Urobilinogen < 2.0 (<2.0) mg/dL Ur Leukocyte Esterase Neg (Negative) Urine WBC (Auto) < 1.0 (0.0-6.0) /HPF Urine RBC (Auto) < 1.0 (0.0-6.0) /HPF U Epithel Cells (Auto) < 1.0 (0-13.0) /HPF Urine Mucus 1+ /HPF Salicylates (2.8-20.0) mg/dL Urine Opiates Screen Presumptive positive Urine Methadone Screen Presumptive negative Acetaminophen (10.0-30.0) ug/mL Ur Barbiturates Screen Presumptive negative Ur Phencyclidine Scrn Presumptive positive Ur Amphetamines Screen Presumptive negative U Benzodiazepines Scrn Presumptive negative Urine Cocaine Screen Presumptive negative U Marijuana (THC) Screen Presumptive negative Drugs of Abuse Note Disclamer Plasma/Serum Alcohol (0-0.07) gm% - EKG Data -: EKG Interpreted by Me (sinus 63. Inferior infarct) When compared to previous EKG there are: no significant change (compared to 02/2016) - Radiology Data Radiology results: report reviewed CT head: No acute findings Chest x-ray: Vascular congestion without luis fluid or CHF at this time - Differential Diagnosis encephalopathy, drug overdose, ICH, CO2 retention Critical Care Time: No Critical care attestation.: If time is entered above; I have spent that time in minutes in the direct care of this critically ill patient, excluding procedure time. ED Disposition Clinical Impression: Altered mental status, Opiate use, COPD (chronic obstructive pulmonary disease) , Hx of heart artery stent, Oxygen dependent Disposition: -09 OP ADMIT IP TO THIS HOSP Is pt being admited?: Yes Condition: Stable Time of Disposition: 16:42 (Dr Lancaster/hosp)
[2016-09-14 14:19] LABS: ISTAT Base Excess 1; ISTAT HCO3 26.2; ISTAT PCO2 45.9 (35-45); ISTAT PH 7.364 (7.35-7.45); ISTAT PO2 83 (80-105); ISTAT SO2 96; ISTAT TCO2 28
[2016-09-14 14:19] LABS: Basophils % (Auto) 0.9 % (0.0-1.8); Mean Corpuscular HGB Conc 30 % (30-34); Mean Corpuscular Volume 76 fl (79-97); Platelet Count 305 K/mm3 (140-440); Red Blood Count 4.57 M/mm3 (3.65-5.03)
[2016-09-14 14:22] LABS: Hematocrit 34.6 % (30.3-42.9); Hemoglobin 10.4 gm/dl (10.1-14.3); Mean Corpuscular Hemoglobin 23 pg (28-32); Red Cell Distribution Width 24.5 % (13.2-15.2)
[2016-09-14 14:41] LABS: Alanine Aminotransferase 7 units/L (7-56); Albumin 3.8 g/dL (3.9-5); Albumin/Globulin Ratio 1.1 %; Alkaline Phosphatase 92 units/L (35-129); Anion Gap 18 mmol/L; Blood Urea Nitrogen 13 mg/dL (7-17); Carbon Dioxide 26 mmol/L (22-30); Glucose 103 mg/dL (65-100); Potassium 4.4 mmol/L (3.6-5.0); Sodium 145 mmol/L (137-145); Total Protein 7.2 g/dL (6.3-8.2)
--- NOTE | 2016-09-14 14:47 | XRay Report ---
FINAL REPORT PROCEDURE: XR CHEST 1V AP TECHNIQUE: Chest radiograph anteroposterior view. CPT 92227 HISTORY: Altered Mental Status COMPARISON: 08/17/2016 FINDINGS: Heart: Moderately enlarged Mediastinum/Vessels: Mild to moderate congestion with mild cephalization of flow Lungs/Pleural space: COPD with minimal lung base atelectasis Bony thorax: No acute osseous abnormality. Jarvis rods postsurgical changes thoracic spine Life support devices: None. IMPRESSION: Vascular congestion without luis or florid CHF at this time
[2016-09-14 14:54] LABS: Urine Drugs of Abuse Note Disclamer
[2016-09-14] MEDS ORDERED: ATIVAN IV ONE (14:59)
[2016-09-14] MEDS ORDERED: ATIVAN ONE (15:00)
[2016-09-14 15:08] LABS: Bilirubin,Urine NEG (Negative); Blood,Urine NEG (Negative); Ketones,Urine TR mg/dL (Negative); Leukocyte Esterase,Urine NEG (Negative); Mucus,Urine 1+ /HPF; Nitrite,Urine NEG (Negative); RBC,Urine < 1.0 /HPF (0.0-6.0); Urobilinogen,Urine < 2.0 mg/dL (<2.0); WBC,Urine < 1.0 /HPF (0.0-6.0)
--- NOTE | 2016-09-14 16:26 | Cat Scan Report ---
FINAL REPORT PROCEDURE: CT HEAD/BRAIN WO CON TECHNIQUE: Computerized tomography of the head was performed without contrast material. HISTORY: Altered Mental Status COMPARISON: 08/05/16 FINDINGS: Skull and scalp: Normal. Paranasal sinuses: Normal. Ventricles and subarachnoid spaces: Normal. Cerebrum: No evidence of hemorrhage, acute infarction or mass . Cerebellum and brainstem: No evidence of hemorrhage, acute infarction or mass. Vasculature: No hyperdense MCA sign Comments: Moderate diffuse atrophy with moderate periventricular microischemic change and central lacunar infarct disease. No significant change prior CT head. If symptoms and or concern persist consider MRI IMPRESSION: No evidence of acute ischemic change suspected at this time
[2016-09-14] MEDS ORDERED: PERCOCET 5/325 PO PRN (17:19)
--- NOTE | 2016-09-14 17:25 | History and Physical Report ---
History of Present Illness Date of examination: 09/14/16 Chief complaint: Altered mental status History of present illness: 56-year-old female with past medical history significant for CAD status post PCI, toxic metabolic encephalopathy due to PCP, depression, COPD, CHF brought via EMS to the emergency department from home after her family members found her confused at home. Patient is not able to well communicate and couldn't get any further history. The history obtained is from chart review and ER doctor. Her family members the patient was not taking opiates or PCP. Review of systems is unobtainable because of her altered mental status. Patient is saturating 99% on 2 L of oxygen and ABG was done and it was normal. Patient is able to take care of her airways. Past History Past Medical History: CAD, COPD, heart failure, hypertension, other Past Surgical History: Other (couldn't obtain because of altered mental status.) Social history: other (couldn't obtain because of altered mental status.) Family history: other (couldn't obtain because of altered mental status.) Medications and Allergies Allergies Allergy/AdvReac Type Severity Reaction Status Date / Time phenobarbital Allergy Unknown Verified 10/28/14 09:33 Home Medications Medication Instructions Recorded Confirmed Last Taken Type ALBUTEROL Inhaler [ProAir HFA 2 puff IH QID PRN #1 inhalation 10/31/14 09/14/16 1 Day Ago Rx Inhaler] Calc Carb/Vit D 500 mg-200 Uni 2 each PO BID tablet 10/31/14 09/14/16 1 Day Ago Rx [Oysco D 500 mg-200 Unit] Aspirin EC [Aspirin Enteric Coated 81 mg PO QDAY #30 tablet 07/16/16 09/14/16 1 Day Ago Rx TAB] Furosemide [Lasix TAB] 20 mg PO QDAY #30 tablet 07/16/16 09/14/16 1 Day Ago Rx Ipratropium/Albuterol Sulfate 1 ampul IH TIDRT #100 ampul.neb 07/16/16 09/14/16 1 Day Ago Rx [DUONEB *Not for PRN Use*] Potassium Chloride [K-Dur] 20 meq PO Q12H #30 tablet 07/16/16 09/14/16 1 Day Ago Rx Venlafaxine HCl [Venlafaxine] 100 mg PO TIDWM #30 tablet 07/16/16 09/14/16 1 Day Ago Rx ISOSORBIDE MONOnitrate [Imdur ER] 30 mg PO DAILY 08/08/16 09/14/16 1 Day Ago History Pantoprazole [Protonix TAB] 40 mg PO QDAY 08/08/16 09/14/16 1 Day Ago History Sucralfate 1 gm PO BID 08/08/16 09/14/16 1 Day Ago History amLODIPine [Norvasc] 10 mg PO DAILY 08/08/16 09/14/16 1 Day Ago History AtorvaSTATin [Lipitor] 40 mg PO QHS #30 tablet 08/14/16 09/14/16 Unknown Rx Lisinopril [Zestril TAB] 2.5 mg PO QDAY #30 tablet 08/14/16 09/14/16 Unknown Rx Metoprolol [Lopressor TAB] 25 mg PO Q6H #60 tablet 08/14/16 09/14/16 Unknown Rx oxyCODONE /ACETAMINOPHEN [Percocet 1 tab PO QHS PRN #30 tablet 08/23/16 Unknown Rx 5/325 mg] predniSONE [Deltasone] 1 dose PO QDAY #1 mo 08/23/16 09/14/16 Unknown Rx Active Meds: Active Medications Albuterol/Ipratropium (Duoneb *Not For Prn Use*) 1 ampul IH QIDRT [facility] Amlodipine Besylate (Norvasc) 10 mg PO DAILY [facility] Aspirin (Halfprin Ec) 81 mg PO QDAY [facility] Atorvastatin Calcium (Lipitor) 40 mg PO QHS [facility] Calcium/Vitamin D (Oysco D 500 Mg-200 Unit) 2 each PO BID [facility] Furosemide (Lasix) 20 mg PO QDAY [facility] Isosorbide Mononitrate (Imdur) 30 mg PO DAILY [facility] Lisinopril (Zestril) 2.5 mg PO QDAY [facility] Metoprolol Tartrate (Lopressor) 25 mg PO Q6H [facility] Oxycodone/Acetaminophen (Percocet 5/325) 1 tab PO Q6H PRN PRN Reason: Pain , Severe (7-10) Pantoprazole Sodium (Protonix) 40 mg PO QDAY [facility] Potassium Chloride (K-Dur) 20 meq PO Q12H [facility] Prednisone (Deltasone) mg PO QDAY [facility] Sucralfate (Carafate) 1 gm PO BID [facility] Review of Systems ROS unobtainable: due to mental status (couldn't obtain because of altered mental status.) Exam - Physical Exam Narrative exam: Not in cardiopulmonary distress. The patient appeared well nourished and normally developed. Vital signs as documented. Head exam is unremarkable. No scleral icterus . Neck is without jugular venous distension, thyromegaly, or carotid bruits. Lungs are clear to auscultation. Cardiac exam reveals regular rate and Rhythm. First and second heart sounds normal. No murmurs, rubs or gallops. Abdominal exam reveals normal bowel sounds, no masses, no organomegaly and no aortic enlargement. Extremities are nonedematous and both femoral and pedal pulses are normal. 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5 % (13.2-15.2) H 09/14/16 13:57 Plt Count 305 K/mm3 (140-440) 09/14/16 13:57 Lymph % (Auto) 14.1 % (13.4-35.0) 09/14/16 13:57 [place] % (Auto) 13.1 % (0.0-7.3) H 09/14/16 13:57 Eos % (Auto) 1.0 % (0.0-4.3) 09/14/16 13:57 Baso % (Auto) 0.9 % (0.0-1.8) 09/14/16 13:57 Lymph # 1.1 K/mm3 (1.2-5.4) L 09/14/16 13:57 [place] # 1.0 K/mm3 (0.0-0.8) H 09/14/16 13:57 Eos # 0.1 K/mm3 (0.0-0.4) 09/14/16 13:57 Baso # 0.1 K/mm3 (0.0-0.1) 09/14/16 13:57 Seg Neutrophils % 70.9 % (40.0-70.0) H 09/14/16 13:57 Seg Neutrophils # 5.7 K/mm3 (1.8-7.7) 09/14/16 13:57 APTT 31.9 Sec. (24.2-36.6) 09/14/16 13:57 POC ABG pH 7.364 (7.35-7.45) 09/14/16 14:05 POC ABG pCO2 45.9 (35-45) H 09/14/16 14:05 POC ABG pO2 83 (80-105) 09/14/16 14:05 POC ABG HCO3 26.2 09/14/16 14:05 POC ABG Total CO2 28 09/14/16 14:05 POC ABG O2 Sat 96 09/14/16 14:05 POC ABG Base Excess 1 09/14/16 14:05 FiO2 28 % 09/14/16 14:05 Sodium 145 mmol/L (137-145) 09/14/16 13:57 Potassium 4.4 mmol/L (3.6-5.0) 09/14/16 13:57 Chloride 105.0 mmol/L (98-107) 09/14/16 13:57 Carbon Dioxide 26 mmol/L (22-30) 09/14/16 13:57 Anion Gap 18 mmol/L 09/14/16 13:57 BUN 13 mg/dL (7-17) 09/14/16 13:57 Creatinine 0.5 mg/dL (0.7-1.2) L 09/14/16 13:57 Estimated GFR > 60 ml/min 09/14/16 13:57 BUN/Creatinine Ratio 26.00 % 09/14/16 13:57 Glucose 103 mg/dL (65-100) H 09/14/16 13:57 Lactic Acid 0.90 mmol/L (0.7-2.0) 09/14/16 13:57 Calcium 9.0 mg/dL (8.4-10.2) 09/14/16 13:57 Total Bilirubin 0.30 mg/dL (0.1-1.2) 09/14/16 13:57 AST 12 units/L (5-40) 09/14/16 13:57 ALT 7 units/L (7-56) 09/14/16 13:57 Alkaline Phosphatase 92 units/L (35-129) 09/14/16 13:57 Ammonia 29.0 umol/L (25-60) 09/14/16 13:57 Total Protein 7.2 g/dL (6.3-8.2) 09/14/16 13:57 Albumin 3.8 g/dL (3.9-5) L 09/14/16 13:57 Albumin/Globulin Ratio 1.1 % 09/14/16 13:57 Lipase 14 units/L (13-60) 09/14/16 13:57 Urine Color Yellow (Yellow) 09/14/16 14:38 Urine Turbidity Clear (Clear) 09/14/16 14:38 Urine pH 5.0 (5.0-7.0) 09/14/16 14:38 Ur Specific [place] 1.024 (1.003-1.030) 09/14/16 14:38 Urine Protein 30 mg/dl mg/dL (Negative) 09/14/16 14:38 Urine Glucose (UA) Neg mg/dL (Negative) 09/14/16 14:38 Urine Ketones Tr mg/dL (Negative) 09/14/16 14:38 Urine Blood Neg (Negative) 09/14/16 14:38 Urine Nitrite Neg (Negative) 09/14/16 14:38 Urine Bilirubin Neg (Negative) 09/14/16 14:38 Urine Urobilinogen < 2.0 mg/dL (<2.0) 09/14/16 14:38 Ur Leukocyte Esterase Neg (Negative) 09/14/16 14:38 Urine WBC (Auto) < 1.0 /HPF (0.0-6.0) 09/14/16 14:38 Urine RBC (Auto) < 1.0 /HPF (0.0-6.0) 09/14/16 14:38 U Epithel Cells (Auto) < 1.0 /HPF (0-13.0) 09/14/16 14:38 Urine Mucus 1+ /HPF 09/14/16 14:38 Salicylates < 0.3 mg/dL (2.8-20.0) L 09/14/16 13:57 Urine Opiates Screen Presumptive positive 09/14/16 14:38 Urine Methadone Screen Presumptive negative 09/14/16 14:38 Acetaminophen < 15.0 ug/mL (10.0-30.0) 09/14/16 13:57 Ur Barbiturates Screen Presumptive negative 09/14/16 14:38 Ur Phencyclidine Scrn Presumptive positive 09/14/16 14:38 Ur Amphetamines Screen Presumptive negative 09/14/16 14:38 U Benzodiazepines Scrn Presumptive negative 09/14/16 14:38 Urine Cocaine Screen Presumptive negative 09/14/16 14:38 U Marijuana (THC) Screen Presumptive negative 09/14/16 14:38 Drugs of Abuse Note Disclamer 09/14/16 14:38 Plasma/Serum Alcohol < 0.01 gm% (0-0.07) 09/14/16 13:57 Assessment and Plan Assessment and plan: Acute toxic encephalopathy due to PCP COPD CAD status post stents Malnutrition - UDS is positive for PCP and opiates - Supportive care - She is saturating well and continue breathing treatments and oxygen support - Patient denied chest pain - Nutrition consult for malnutrition - resume appropriate home medications DVT prophylaxis -heparin Disposition - admit to telemetry floor Advance Directives: Yes VTE prophylaxis?: Chemical Plan of care discussed with patient/family: No
[2016-09-14] MEDS ORDERED: K-DUR PO SCH (18:00)
[2016-09-14] MEDS: HEPARIN SUB-Q SCH (18:24)
[2016-09-14] MEDS: LOPRESSOR PO SCH (18:25)
[2016-09-14] MEDS: ATIVAN IV PRN (19:16)
[2016-09-14] MEDS: DUONEB *Not for PRN Use IH SCH (22:42)
[2016-09-14] MEDS: CARAFATE PO SCH (23:08)
[2016-09-14] MEDS: OYSCO D 500 MG-200 UNIT PO SCH (23:08)
[2016-09-15] MEDS ORDERED: LOPRESSOR ONE (00:18)
[2016-09-15] MEDS: LOPRESSOR PO SCH ×2 (00:23→13:27)
[2016-09-15] MEDS ORDERED: ATIVAN ONE (01:13)
[2016-09-15] MEDS: ATIVAN IV PRN (01:30)
--- NOTE | 2016-09-15 01:53 | Admit Criteria Form ---
Admission Criteria Documentation: SUBSTANCE ABUSE Clinical Indications for Admission to Inpatient Care (Place 'X' for any and all applicable criteria): Admission is indicated due to ANY ONE of the following(1)(2)(3)(4)(5): [ ]I. Delirium due to alcohol or sedative A withdrawal B ( Also use Delirium Criteria as appropriate)1,6,7 [ ]II. Alcohol or sedative withdrawal with high-risk indicator as manifested by ALL of the following1,3,6,7 [ ]a) Signs of withdrawal as indicated by ANY ONE of the following: [ ]i) Heart rate greater than 100 beats per minute [ ]ii) Nausea or vomiting [ ]iii) Other physical signs of alcohol or sedative withdrawal [ ]iv) Tremor [ ](v) Increased perspiration [ ]b) Elevated risk due to a historical or comorbid factor as indicated by ANY ONE of the following: [ ]i) History of delirium due to alcohol or sedative withdrawal [ ]ii) History of repetitive seizures due to alcohol or sedative withdrawal C [ ]iii) Intrinsic seizure disorder (epilepsy) [ ]iv) [ ]v) Comorbid medical condition that can be dangerously destabilized by alcohol or sedative withdrawal (eg, severe cardiac disease) [ ]III. Severe alcohol or sedative withdrawal that is unmanageable at lower level of care, as manifested by ALL of the following1,3,6,7 [ ]a) Marked signs of withdrawal as indicated by ANY ONE of the following: [ ]i) Heart rate greater than 120 beats per minute [ ]ii) Vomiting [ ]iii) Grossly visible tremor [ ]iv) Profuse perspiration [ ]v) Temperature greater than 38.3 degrees C (101 degrees F) [ ]vi) Other marked physical signs of alcohol or sedative withdrawal [ ]b) Signs of withdrawal which require inpatient treatment as indicated by ANY ONE of the following: [ ]i) Inadequate response to pharmacotherapy in emergency department or other appropriate lower level of care [ ]ii) Lower level of care not feasible or appropriate (eg, unavailable or inappropriate to patient condition or treatment history) [ ]IV. Severely complicated opioid withdrawal that requires [id number] care as manifested by ALL of the following 1,4,7,11 [ ]a) Vomiting or diarrhea due to opioid withdrawal [ ]b) Marked dehydration or electrolyte abnormality that cannot be corrected (to near normal) in an emergency department or other ambulatory setting (eg, serum K<2.5 mEq/L , serum Na <130 mEq/L [ X]V. Acute toxicity or instability from substance use requiring inpatient care (eg, altered mental status, respiratory depression) that has had inadequate response to, or is judged inappropriate for, treatment at lower level of care (eg, emergency department, observation care) [ ]. Other inpatient medical or psychiatric care is needed due to risk or comorbidity as indicated by ALL of the following(18): [ ]a) Treatment is needed because of patient risk due to ANY ONE of the following: [ ]i) Medical condition (eg, severe cardiac disease) that requires 24-hour monitoring and treatment due to danger of destabilization by alcohol or sedative withdrawal is present [ ]ii) Imminent danger to self is present due to ANY ONE of the following(19)(20)(21): [ ]1) Imminent risk for recurrence of Suicide attempt or act of serious Harm to self is present as indicated by ALL of the following: [ ]A. There has been very recent Suicide attempt or deliberate act of serious Harm to self. [ ]B. There has not been Sufficient relief of the factors that precipitated the attempt or act. [ ]2) Current plan for suicide or serious Harm to self is present. [ ]3) Command auditory hallucinations for suicide or serious Harm to self are present. [ ]4) Patient has persistent Thoughts of suicide or serious Harm to self that cannot be adequately monitored at lower level of care due to ANY ONE of the following[E]: [ ]A. Insufficient behavioral care is available to meet patient needs (such as required provider or lower level facility is not available). [ ]B. Patient characteristics such as high impulsivity or unreliability are present. [ ]C. Environment does not support recovery. [ ]D. Ready access to lethal means [ ]iii) Imminent danger to others is present due to ANY ONE of the following(19)(23)(24): [ ]1) Imminent risk for recurrence of attempt to seriously Harm another is present as indicated by ALL of the following: [ ]A. There has been very recent attempt to seriously Harm another. [ ]B. There has not been Sufficient relief of factors that precipitated the attempt or act. [ ]2) Current plan for homicide or serious Harm to another is present. [ ]3) Command auditory hallucinations or paranoid delusions contributing to risk for homicide or serious Harm to another are present. [ ]4) Patient has persistent thoughts of homicide or serious Harm to another that cannot be adequately monitored at lower level of care because of ANY ONE of the following[E]: [ ]A. Insufficient behavioral care is available to meet patient needs (such as required provider or lower level facility is not available). [ ]B. High impulsivity or unreliability is present. [ ]C. Environment does not support recovery. [ ]D. Ready access to lethal means [ ]iv) Severe dysfunction in daily living related to substance use disorder as indicated by ANY ONE of the following(33): [ ]a) Extreme deterioration in social interactions (eg , threatening behaviors with little or no provocation) [ ]b) Complete withdrawal from all social interactions [ ]c) Complete neglect of self-care with associated impairment in physical status [ ]d) Extreme disruption in vegetative function (eg, life-sustaining functions such as eating) [ ]e) Complete inability to maintain any appropriate aspect of personal responsibility in any adult roles (eg, occupational, parental ) [ ]v) Other emotional, behavioral, or cognitive symptoms of sufficient severity to preclude ability to engage in recovery without 24-hour monitoring and treatment are present. [ ]vi) Patient requires monitoring due to substance use in combination with medical, psychiatric, or environmental factors that prevent adequate management at lower level of care as indicated by ALL of the following: [ ]1) Significant substance use effects, medical conditions, or psychiatric comorbidities are present as indicated by ANY ONE of the following [ ]A. Substance toxicity or withdrawal requires medical monitoring. [ ]B. Medical comorbidity requires medical monitoring for destabilization due to alcohol or sedative withdrawal. [ ]C. Emotional, behavioral, or cognitive symptoms of sufficient severity to limit or preclude ability to engage in treatment are present. [ ]2) Conditions, barriers, or environmental factors preventing treatment at lower level of care are present as indicated by ANY ONE of the following: [ ]A. Psychiatric comorbidity or opposition to treatment requires 24-hour setting to ensure adherence with medical treatment or adequate motivating interventions. [ ]B. Severe behavioral problems (eg, escalating relapse behaviors, acute psychiatric or substance use crisis, inability to recognize signs and symptoms of relapse ) require 24-hour setting for relapse prevention.[F] [ ]C. Living environment outside of 24-hour setting prevents recovery (eg, abuse, victimization, patient inability to cope). [ ]b Treatment situation and needs are appropriate for inpatient level ( instead of using lower level of care) as indicated by ANY ONE of the following( 25)(26)(27): [ ]i) Patient is unwilling to participate voluntarily and requires treatment (eg, legal commitment) in involuntary unit.(23) [ ]ii) Voluntary treatment at lower level is not feasible (eg, lower level care unavailable or inappropriate for patient condition). [ ]iii) Physical restraint, seclusion, or other involuntary control is needed (eg, actively violent patient for whom treatment in an involuntary unit is deemed necessary in accord with applicable medical and legal criteria).(23) [ ]iv) [id number] medical or nursing care to address symptoms and initiate interventions is required; specific need is identified. Extended stay beyond goal length of stay may be needed for: [ ]a) Onset of delirium [ ]b) Recurrent seizures [ ]c) Persistent severe alcohol or sedative withdrawal [ ]d) Persistent dangerous behavior The original [facility] [facility] content created by [email or web address] has been revised. The portions of the content which have been revised are identified through the use of italic text or in bold, and [facility] has neither reviewed nor approved the modified material. All other unmodified content is copyright [facility] [employer]. Please see references footnoted in the original [facility] [employer] edition 2016 Admission Criteria Met: Yes
[2016-09-15] MEDS: HEPARIN SUB-Q SCH ×2 (03:41→13:30)
[2016-09-15 06:50] LABS: Basophils % (Auto) 0.7 % (0.0-1.8); Mean Corpuscular HGB Conc 30 % (30-34); Mean Corpuscular Volume 76 fl (79-97); Platelet Count 256 K/mm3 (140-440); Red Blood Count 4.44 M/mm3 (3.65-5.03); White Blood Count 6.2 K/mm3 (4.5-11.0)
[2016-09-15 06:54] LABS: Hematocrit 33.7 % (30.3-42.9); Mean Corpuscular Hemoglobin 23 pg (28-32); Red Cell Distribution Width 23.8 % (13.2-15.2)
[2016-09-15 06:57] LABS: Anion Gap 19 mmol/L; Blood Urea Nitrogen 9 mg/dL (7-17); Calcium 8.9 mg/dL (8.4-10.2); Carbon Dioxide 24 mmol/L (22-30); Chloride 105.2 mmol/L (98-107); Glucose 101 mg/dL (65-100); Potassium 3.6 mmol/L (3.6-5.0); Sodium 145 mmol/L (137-145)
[2016-09-15] MEDS ORDERED: VENLAFAXINE HCL 100 MG PO SCH (08:00)
[2016-09-15] MEDS: EFFEXOR PO SCH ×4 (09:58→13:30)
[2016-09-15] MEDS ORDERED: HALFPRIN EC PO SCH (10:00)
[2016-09-15] MEDS ORDERED: IMDUR PO SCH (10:00)
[2016-09-15] MEDS ORDERED: ZESTRIL PO SCH (10:00)
[2016-09-15] MEDS ORDERED: DELTASONE PO SCH (10:00)
[2016-09-15] MEDS ORDERED: LASIX PO SCH (10:00)
[2016-09-15] MEDS ORDERED: NORVASC PO SCH (10:00)
[2016-09-15] MEDS: OYSCO D 500 MG-200 UNIT PO SCH (10:00)
[2016-09-15] MEDS ORDERED: PROTONIX PO SCH (10:00)
[2016-09-15 13:04] VITALS: BP 124/59
[2016-09-15] MEDS: CARAFATE PO SCH (13:28)
--- NOTE | 2016-09-15 14:04 | Discharge Summary ---
Providers - Providers Date of Admission: 09/14/16 22:58 Date of discharge: 09/15/16 Attending physician: LOLIS MEDINA MD Primary care physician: FLORESITA MOSELEY Hospitalization Condition: Stable Hospital course: 56-year-old female with past medical history significant for CAD status post PCI, toxic metabolic encephalopathy due to PCP, depression, COPD, CHF brought via EMS to the emergency department from home after her family members found her confused at home. Patient is not able to well communicate and couldn't get any further history. The history obtained is from chart review and ER doctor. Her family members the patient was not taking opiates or PCP. Review of systems is unobtainable because of her altered mental status. Patient is saturating 99% on 2 L of oxygen and ABG was done and it was normal. Patient is able to take care of her airways. Discharge Diagnosis: Acute toxic encephalopathy due to PCP COPD CAD status post stents Malnutrition - UDS was positive for PCP and opiates - provided Supportive care, mental status back to baseline - She was saturating well and continued on breathing treatments and oxygen support - Patient denied chest pain - Nutrition consulted for malnutrition - resumed appropriate home medications Disposition: DC-01 TO HOME OR SELFCARE Time spent for discharge: 32 minutes Core Measure Documentation - Palliative Care Palliative Care/ Comfort Measures: Not Applicable - Core Measures Any of the following diagnoses?: none Exam - Constitutional Vitals: Temp Pulse Resp BP Pulse Ox 97.6 F 107 H 20 124/59 96 09/15/16 13:03 09/15/16 13:03 09/15/16 13:03 09/15/16 13:03 09/15/16 13:03 Plan Activity: advance as tolerated Weight Bearing Status: Weight Bear as Tolerated Diet: low fat, low salt Follow up with: FLORESITA MOSELEY MD [Primary Care Provider] - 7 Days
[2016-09-15] MEDS: DUONEB *Not for PRN Use IH SCH (14:38)
== END 2016-09-15 16:30 | disposition home or self-care (01) | DRG 917 ==
LOC: ED 12:42 → 3A 22:58 → 4A 09-15 00:59
PROVIDERS: ADMIT Internal Medicine; ATTEND Internal Medicine
PROC: 4A033R1 Measurement of Arterial Saturation, Peripheral, Percutaneous Approach (ICD-10-PCS; principal; 2016-09-14)
DX: T40.991A Poisoning by other psychodysleptics [hallucinogens], accidental (unintentional), initial encounter (principal); G92 Toxic encephalopathy; E46 Unspecified protein-calorie malnutrition; J44.9 Chronic obstructive pulmonary disease, unspecified; I25.10 Atherosclerotic heart disease of native coronary artery without angina pectoris; G89.4 Chronic pain syndrome; I25.2 Old myocardial infarction; I11.0 Hypertensive heart disease with heart failure; K21.9 Gastro-esophageal reflux disease without esophagitis; F17.210 Nicotine dependence, cigarettes, uncomplicated; F11.90 Opioid use, unspecified, uncomplicated; Y92.89 Other specified places as the place of occurrence of the external cause; I50.9 Heart failure, unspecified; Z68.30 Body mass index [BMI] 30.0-30.9, adult; Z99.81 Dependence on supplemental oxygen; Z95.5 Presence of coronary angioplasty implant and graft; Z95.810 Presence of automatic (implantable) cardiac defibrillator; Z79.899 Other long term (current) drug therapy; Z88.8 Allergy status to other drugs, medicaments and biological substances; Y92.9 Unspecified place or not applicable
CPT/HCPCS: 36415; 70450; 71010; 80048; 80053; 80307; 80320; 81001; 82140; 82803; 83690; 85025; 85730; 93005; 93010; 94640; 94760; A9270-GY; G0480; J1644; J2060; J7512

== ENCOUNTER 2018-03-01 19:12 | Inpatient (IN) | payer MEDICAID, MEDICARE ==
[2018-03-01] MEDS ORDERED: GEODON IM ONE ×2 (19:24→19:28)
[2018-03-01 20:04] LABS: Basophils # (Auto) 0.1 K/mm3 (0.0-0.1); Basophils % (Auto) 0.9 % (0.0-1.8); Eosinophils # (Auto) 0.4 K/mm3 (0.0-0.4); Eosinophils % (Auto) 2.4 % (0.0-4.3); Lymphocytes # (Auto) 1.3 K/mm3 (1.2-5.4); Lymphocytes % (Auto) 8.5 % (13.4-35.0); Mean Corpuscular HGB Conc 29 % (30-34); Mean Corpuscular Volume 80 fl (79-97); Monocytes # (Auto) 1.2 K/mm3 (0.0-0.8); Monocytes % (Auto) 7.5 % (0.0-7.3); Platelet Count 232 K/mm3 (140-440); Red Blood Count 4.86 M/mm3 (3.65-5.03); Red Cell Distribution Width 19.2 % (13.2-15.2)
[2018-03-01 20:05] LABS: Hematocrit 38.7 % (30.3-42.9); Hemoglobin 11.1 gm/dl (10.1-14.3)
[2018-03-01] MEDS ORDERED: HALDOL IM ONE (20:19)
[2018-03-01] MEDS ORDERED: HALDOL ONE (20:23)
[2018-03-01] MEDS ORDERED: ATIVAN ONE (20:23)
[2018-03-01 20:32] LABS: Alanine Aminotransferase 8 units/L (7-56); Albumin 3.7 g/dL (3.9-5); BUN/Creatinine Ratio 31; Blood Urea Nitrogen 22 mg/dL (7-17); Hemolysis Index 65
[2018-03-01] MEDS: ATIVAN IM ONE (20:46)
--- NOTE | 2018-03-01 20:48 | Cat Scan Report ---
FINAL REPORT EXAM: CT HEAD/BRAIN WO CON HISTORY: altered mental status. BEST STUDY POSSIBLE. PT EXTREMELY COMBATIVE AND ALTERED AND TRYING T O GET OFF TABLE. SHE WAS MEDICATED SEVERAL TIMES, IN RESTRAINTS, AND IMMOBILIZED W OUR STRAPS. REPEAT ED AND SENT EVERYTHING. COMPARISON: CT of the head from August 2016. TECHNIQUE: Axial images obtained skull base through vertex. FINDINGS: No acute intracranial hemorrhage, midline shift or pathologic extra axial fluid collection. Ventricle s and cisterns are normal in size and configuration for the patient's age. Patchy low-attenuation the subcortical and periventricular white matter compatible with mild chronic small vessel ischemic dise ase. Ocular globes are grossly unremarkable. Mild to moderate calcified plaque along the carotid siph ons. Wray-white differentiation preserved. Calvarium grossly intact. External metallic clips creates streak artifact through the brain parenchyma. IMPRESSION: No grossly acute intracranial abnormality. Mild chronic small vessel ischemic disease. Findings are s imilar prior study. If clinical concern for acute intracranial process remains, MRI would be suggeste d for further evaluation.
[2018-03-01] MEDS ORDERED: NACL 0.9% 1000 ML 1,000 ML ONE (21:25)
[2018-03-01] MEDS ORDERED: NACL 0.9% 1000 ML 1,000 ML IV ONE (21:37)
[2018-03-01 21:45] LABS: Bilirubin,Urine NEG (Negative); Blood,Urine SM (Negative); Color,Urine Yellow (Yellow); Mucus,Urine FEW /HPF
[2018-03-01 21:53] LABS: Amphetamine Screen,Urine PRESUMPTIVE NEGATIVE; Benzodiazepines Screen,Urine PRESUMPTIVE NEGATIVE; Cannabinoid Screen,Urine PRESUMPTIVE NEGATIVE; Cocaine Screen,Urine PRESUMPTIVE NEGATIVE; Methadone Screen,Urine PRESUMPTIVE NEGATIVE
[2018-03-01 22:15] LABS: Opiate Screen,Urine PRESUMPTIVE POSITIVE
--- NOTE | 2018-03-02 00:29 | Emergency Department Report ---
ED Psych HPI - General Chief Complaint: Altered Mental Status Stated Complaint: AMS Time Seen by Provider: 03/01/18 19:24 Source: EMS Mode of arrival: Stretcher - History of Present Illness Initial Comments: Patient is a 58-year-old female who is here for abnormal behavior. Patient is noted to be at home screaming "please help me please help me". Patient's family told paramedics that she has had episodes like this in the past. No other past history regarding psychosis is known at this time. Family is not with the patient currently. Patient is unable to give any additional history herself. - Related Data Home Medications Medication Instructions Recorded Confirmed Last Taken ISOSORBIDE MONOnitrate [Imdur ER] 30 mg PO DAILY 08/08/16 09/14/16 1 Day Ago ~08/13/16 Pantoprazole [Protonix TAB] 40 mg PO QDAY 08/08/16 09/14/16 1 Day Ago ~08/13/16 Sucralfate 1 gm PO BID 08/08/16 09/14/16 1 Day Ago ~08/13/16 amLODIPine [Norvasc] 10 mg PO DAILY 08/08/16 09/14/16 1 Day Ago ~08/13/16 Previous Rx's Medication Instructions Recorded Last Taken Type ALBUTEROL Inhaler (OR & NICU) 2 puff IH QID PRN #1 inhalation 10/31/14 1 Day Ago Rx [ProAir HFA Inhaler] ~08/13/16 Calc Carb/Vit D 500 mg-200 Uni 2 each PO BID tablet 10/31/14 1 Day Ago Rx [Oysco D 500 mg-200 Unit] ~08/13/16 Aspirin EC [Aspirin Enteric Coated 81 mg PO QDAY #30 tablet 07/16/16 1 Day Ago Rx TAB] ~08/13/16 Furosemide [Lasix TAB] 20 mg PO QDAY #30 tablet 07/16/16 1 Day Ago Rx ~08/13/16 Ipratropium/Albuterol Sulfate 1 ampul IH TIDRT #100 ampul.neb 07/16/16 1 Day Ago Rx [DUONEB *Not for PRN Use*] ~08/13/16 Potassium Chloride [K-Dur] 20 meq PO Q12H #30 tablet 07/16/16 1 Day Ago Rx ~08/13/16 Venlafaxine HCl [Venlafaxine] 100 mg PO TIDWM #30 tablet 07/16/16 1 Day Ago Rx ~08/13/16 AtorvaSTATin [Lipitor] 40 mg PO QHS #30 tablet 08/14/16 Unknown Rx Lisinopril [Zestril TAB] 2.5 mg PO QDAY #30 tablet 08/14/16 Unknown Rx Metoprolol [Lopressor TAB] 25 mg PO Q6H #60 tablet 08/14/16 Unknown Rx oxyCODONE /ACETAMINOPHEN [Percocet 1 tab PO QHS PRN #30 tablet 08/23/16 Unknown Rx 5/325 mg] predniSONE [Deltasone] 1 dose PO QDAY #1 mo 08/23/16 Unknown Rx Allergies Allergy/AdvReac Type Severity Reaction Status Date / Time hydromorphone [From Dilaudid] Allergy Unknown Verified 03/01/18 21:50 phenobarbital Allergy Unknown Verified 10/28/14 09:33 ED Review of Systems ROS: Stated complaint: AMS Other details as noted in HPI Comment: All other systems reviewed and negative ED Past Medical Hx - Past Medical History Previous Medical History?: Yes Hx Hypertension: Yes Hx Heart Attack/AMI: Yes Hx Congestive Heart Failure: No (patient denies) Hx Diabetes: No Hx Deep Vein Thrombosis: No Hx GERD: Yes Hx Liver Disease: Yes Hx Psychiatric Treatment: Yes (depression and anxiety) Hx Asthma: No Hx COPD: Yes - Surgical History Past Surgical History?: Yes Hx Coronary Stent: Yes (June 2016) Hx Pacemaker: No Hx Internal Defibrillator: No Additional Surgical History: RONNY, heart stents - Social History Smoking Status: Current Every Day Smoker Substance Use Type: Prescribed - Medications Home Medications: Home Medications Medication Instructions Recorded Confirmed Last Taken Type ALBUTEROL Inhaler (OR & NICU) 2 puff IH QID PRN #1 inhalation 10/31/14 09/14/16 1 Day Ago Rx [ProAir HFA Inhaler] ~08/13/16 Calc Carb/Vit D 500 mg-200 Uni 2 each PO BID tablet 10/31/14 09/14/16 1 Day Ago Rx [Oysco D 500 mg-200 Unit] ~08/13/16 Aspirin EC [Aspirin Enteric Coated 81 mg PO QDAY #30 tablet 07/16/16 09/14/16 1 Day Ago Rx TAB] ~08/13/16 Furosemide [Lasix TAB] 20 mg PO QDAY #30 tablet 07/16/16 09/14/16 1 Day Ago Rx ~08/13/16 Ipratropium/Albuterol Sulfate 1 ampul IH TIDRT #100 ampul.neb 07/16/16 09/14/16 1 Day Ago Rx [DUONEB *Not for PRN Use*] ~08/13/16 Potassium Chloride [K-Dur] 20 meq PO Q12H #30 tablet 07/16/16 09/14/16 1 Day Ago Rx ~08/13/16 Venlafaxine HCl [Venlafaxine] 100 mg PO TIDWM #30 tablet 07/16/16 09/14/16 1 Day Ago Rx ~08/13/16 ISOSORBIDE MONOnitrate [Imdur ER] 30 mg PO DAILY 08/08/16 09/14/16 1 Day Ago History ~08/13/16 Pantoprazole [Protonix TAB] 40 mg PO QDAY 08/08/16 09/14/16 1 Day Ago History ~08/13/16 Sucralfate 1 gm PO BID 08/08/16 09/14/16 1 Day Ago History ~08/13/16 amLODIPine [Norvasc] 10 mg PO DAILY 08/08/16 09/14/16 1 Day Ago History ~08/13/16 AtorvaSTATin [Lipitor] 40 mg PO QHS #30 tablet 08/14/16 09/14/16 Unknown Rx Lisinopril [Zestril TAB] 2.5 mg PO QDAY #30 tablet 08/14/16 09/14/16 Unknown Rx Metoprolol [Lopressor TAB] 25 mg PO Q6H #60 tablet 08/14/16 09/14/16 Unknown Rx oxyCODONE /ACETAMINOPHEN [Percocet 1 tab PO QHS PRN #30 tablet 08/23/16 09/14/16 Unknown Rx 5/325 mg] predniSONE [Deltasone] 1 dose PO QDAY #1 mo 08/23/16 09/14/16 Unknown Rx ED Physical Exam - General Limitations: Altered Mental Status General appearance: alert, anxious, in distress - Head Head exam: Present: atraumatic, normocephalic - Eye Eye exam: Present: normal appearance - ENT ENT exam: Present: mucous membranes moist - Neck Neck exam: Present: normal inspection - Respiratory Respiratory exam: Present: normal lung sounds bilaterally. Absent: respiratory distress, wheezes, rales, rhonchi - Cardiovascular Cardiovascular Exam: Present: regular rate, normal rhythm. Absent: systolic murmur, diastolic murmur, rubs, gallop - GI/Abdominal GI/Abdominal exam: Present: soft, normal bowel sounds - Extremities Exam Extremities exam: Present: normal inspection - Back Exam Back exam: Present: normal inspection - Neurological Exam Neurological exam: Present: alert, altered - Psychiatric Psychiatric exam: Present: normal affect, normal mood - Skin Skin exam: Present: warm, dry, intact, normal color. Absent: rash ED Course Vital Signs 03/01/18 03/01/18 03/01/18 19:24 19:27 19:30 Temperature 98.0 F Pulse Rate 106 H 107 H 102 H Respiratory 24 22 26 H Rate Blood Pressure 160/67 Blood Pressure 160/67 [Right] O2 Sat by Pulse 90 89 88 Oximetry 03/01/18 03/01/18 03/01/18 19:46 20:00 20:40 Temperature Pulse Rate 112 H 74 62 Respiratory 34 H 19 Rate Blood Pressure 115/51 115/51 99/37 Blood Pressure [Right] O2 Sat by Pulse 84 Oximetry 03/01/18 03/01/18 03/01/18 20:46 21:00 21:15 Temperature Pulse Rate 92 H 92 H 87 Respiratory 22 19 17 Rate Blood Pressure 123/39 88/33 83/30 Blood Pressure [Right] O2 Sat by Pulse 95 92 92 Oximetry 03/01/18 03/01/18 03/01/18 21:30 21:45 22:00 Temperature Pulse Rate 79 81 80 Respiratory 18 20 18 Rate Blood Pressure 88/40 100/45 100/45 Blood Pressure [Right] O2 Sat by Pulse 92 93 95 Oximetry 03/01/18 03/01/18 03/01/18 22:16 22:30 22:45 Temperature Pulse Rate 80 93 H 115 H Respiratory 18 21 17 Rate Blood Pressure 118/54 163/76 159/70 Blood Pressure [Right] O2 Sat by Pulse 93 87 89 Oximetry 03/01/18 23:00 Temperature Pulse Rate 114 H Respiratory 21 Rate Blood Pressure 156/68 Blood Pressure [Right] O2 Sat by Pulse 90 Oximetry ED Medical Decision Making - Lab Data Result diagrams: 03/01/18 19:41 03/01/18 19:41 Lab Results 03/01/18 03/01/18 03/01/18 Range/Units 19:41 19:41 19:41 WBC 15.6 H (4.5-11.0) K/mm3 RBC 4.86 (3.65-5.03) M/mm3 Hgb 11.1 (10.1-14.3) gm/dl Hct 38.7 (30.3-42.9) % MCV 80 (79-97) fl MCH 23 L (28-32) pg MCHC 29 L (30-34) % RDW 19.2 H (13.2-15.2) % Plt Count 232 (140-440) K/mm3 Lymph % (Auto) 8.5 L (13.4-35.0) % Jones % (Auto) 7.5 H (0.0-7.3) % Eos % (Auto) 2.4 (0.0-4.3) % Baso % (Auto) 0.9 (0.0-1.8) % Lymph # 1.3 (1.2-5.4) K/mm3 Jones # 1.2 H (0.0-0.8) K/mm3 Eos # 0.4 (0.0-0.4) K/mm3 Baso # 0.1 (0.0-0.1) K/mm3 Seg Neutrophils % 80.7 H (40.0-70.0) % Seg Neutrophils # 12.6 H (1.8-7.7) K/mm3 Sodium 138 (137-145) mmol/L Potassium 4.7 (3.6-5.0) mmol/L Chloride 100.9 (98-107) mmol/L Carbon Dioxide 21 L (22-30) mmol/L Anion Gap 21 mmol/L BUN 22 H (7-17) mg/dL Creatinine 0.7 (0.7-1.2) mg/dL Estimated GFR > 60 ml/min BUN/Creatinine Ratio 31 % Glucose 118 H (65-100) mg/dL Calcium 9.0 (8.4-10.2) mg/dL Total Bilirubin 0.30 (0.1-1.2) mg/dL AST 25 (5-40) units/L ALT 8 (7-56) units/L Alkaline Phosphatase 114 (35-129) units/L Total Protein 7.3 (6.3-8.2) g/dL Albumin 3.7 L (3.9-5) g/dL Albumin/Globulin Ratio 1.0 % TSH (0.270-4.200) mlU/mL Urine Color (Yellow) Urine Turbidity (Clear) Urine pH (5.0-7.0) Ur Specific [place] (1.003-1.030) Urine Protein (Negative) mg/dL Urine Glucose (UA) (Negative) mg/dL Urine Ketones (Negative) mg/dL Urine Blood (Negative) Urine Nitrite (Negative) Urine Bilirubin (Negative) Urine Urobilinogen (<2.0) mg/dL Ur Leukocyte Esterase (Negative) Urine WBC (Auto) (0.0-6.0) /HPF Urine RBC (Auto) (0.0-6.0) /HPF U Epithel Cells (Auto) (0-13.0) /HPF Urine Mucus /HPF Salicylates < 0.3 L (2.8-20.0) mg/dL Urine Opiates Screen Urine Methadone Screen Acetaminophen (10.0-30.0) ug/mL Ur Barbiturates Screen Ur Phencyclidine Scrn Ur Amphetamines Screen U Benzodiazepines Scrn Urine Cocaine Screen U Marijuana (THC) Screen Drugs of Abuse Note Plasma/Serum Alcohol (0-0.07) % 03/01/18 03/01/18 03/01/18 Range/Units 19:41 19:41 19:45 WBC (4.5-11.0) K/mm3 RBC (3.65-5.03) M/mm3 Hgb (10.1-14.3) gm/dl Hct (30.3-42.9) % MCV (79-97) fl MCH (28-32) pg MCHC (30-34) % RDW (13.2-15.2) % Plt Count (140-440) K/mm3 Lymph % (Auto) (13.4-35.0) % Jones % (Auto) (0.0-7.3) % Eos % (Auto) (0.0-4.3) % Baso % (Auto) (0.0-1.8) % Lymph # (1.2-5.4) K/mm3 Jones # (0.0-0.8) K/mm3 Eos # (0.0-0.4) K/mm3 Baso # (0.0-0.1) K/mm3 Seg Neutrophils % (40.0-70.0) % Seg Neutrophils # (1.8-7.7) K/mm3 Sodium (137-145) mmol/L Potassium (3.6-5.0) mmol/L Chloride (98-107) mmol/L Carbon Dioxide (22-30) mmol/L Anion Gap mmol/L BUN (7-17) mg/dL Creatinine (0.7-1.2) mg/dL Estimated GFR ml/min BUN/Creatinine Ratio % Glucose (65-100) mg/dL Calcium (8.4-10.2) mg/dL Total Bilirubin (0.1-1.2) mg/dL AST (5-40) units/L ALT (7-56) units/L Alkaline Phosphatase (35-129) units/L Total Protein (6.3-8.2) g/dL Albumin (3.9-5) g/dL Albumin/Globulin Ratio % TSH 1.720 (0.270-4.200) mlU/mL Urine Color (Yellow) Urine Turbidity (Clear) Urine pH (5.0-7.0) Ur Specific [place] (1.003-1.030) Urine Protein (Negative) mg/dL Urine Glucose (UA) (Negative) mg/dL Urine Ketones (Negative) mg/dL Urine Blood (Negative) Urine Nitrite (Negative) Urine Bilirubin (Negative) Urine Urobilinogen (<2.0) mg/dL Ur Leukocyte Esterase (Negative) Urine WBC (Auto) (0.0-6.0) /HPF Urine RBC (Auto) (0.0-6.0) /HPF U Epithel Cells (Auto) (0-13.0) /HPF Urine Mucus /HPF Salicylates (2.8-20.0) mg/dL Urine Opiates Screen Urine Methadone Screen Acetaminophen < 5.0 L (10.0-30.0) ug/mL Ur Barbiturates Screen Ur Phencyclidine Scrn Ur Amphetamines Screen U Benzodiazepines Scrn Urine Cocaine Screen U Marijuana (THC) Screen Drugs of Abuse Note Plasma/Serum Alcohol < 0.01 (0-0.07) % 03/01/18 03/01/18 Range/Units Unknown Unknown WBC (4.5-11.0) K/mm3 RBC (3.65-5.03) M/mm3 Hgb (10.1-14.3) gm/dl Hct (30.3-42.9) % MCV (79-97) fl MCH (28-32) pg MCHC (30-34) % RDW (13.2-15.2) % Plt Count (140-440) K/mm3 Lymph % (Auto) (13.4-35.0) % Jones % (Auto) (0.0-7.3) % Eos % (Auto) (0.0-4.3) % Baso % (Auto) (0.0-1.8) % Lymph # (1.2-5.4) K/mm3 Jones # (0.0-0.8) K/mm3 Eos # (0.0-0.4) K/mm3 Baso # (0.0-0.1) K/mm3 Seg Neutrophils % (40.0-70.0) % Seg Neutrophils # (1.8-7.7) K/mm3 Sodium (137-145) mmol/L Potassium (3.6-5.0) mmol/L Chloride (98-107) mmol/L Carbon Dioxide (22-30) mmol/L Anion Gap mmol/L BUN (7-17) mg/dL Creatinine (0.7-1.2) mg/dL Estimated GFR ml/min BUN/Creatinine Ratio % Glucose (65-100) mg/dL Calcium (8.4-10.2) mg/dL Total Bilirubin (0.1-1.2) mg/dL AST (5-40) units/L ALT (7-56) units/L Alkaline Phosphatase (35-129) units/L Total Protein (6.3-8.2) g/dL Albumin (3.9-5) g/dL Albumin/Globulin Ratio % TSH (0.270-4.200) mlU/mL Urine Color Yellow (Yellow) Urine Turbidity Clear (Clear) Urine pH 5.0 (5.0-7.0) Ur Specific [place] 1.025 (1.003-1.030) Urine Protein 100 mg/dl (Negative) mg/dL Urine Glucose (UA) Neg (Negative) mg/dL Urine Ketones 20 (Negative) mg/dL Urine Blood Sm (Negative) Urine Nitrite Neg (Negative) Urine Bilirubin Neg (Negative) Urine Urobilinogen 4.0 (<2.0) mg/dL Ur Leukocyte Esterase Neg (Negative) Urine WBC (Auto) 1.0 (0.0-6.0) /HPF Urine RBC (Auto) 1.0 (0.0-6.0) /HPF U Epithel Cells (Auto) < 1.0 (0-13.0) /HPF Urine Mucus Few /HPF Salicylates (2.8-20.0) mg/dL Urine Opiates Screen Presumptive positive Urine Methadone Screen Presumptive negative Acetaminophen (10.0-30.0) ug/mL Ur Barbiturates Screen Presumptive negative Ur Phencyclidine Scrn Presumptive positive Ur Amphetamines Screen Presumptive negative U Benzodiazepines Scrn Presumptive negative Urine Cocaine Screen Presumptive negative U Marijuana (THC) Screen Presumptive negative Drugs of Abuse Note Disclamer Plasma/Serum Alcohol (0-0.07) % - Medical Decision Making Patient had to be sedated noted to draw blood and also do her CAT scan of her head. Patient is has been medically cleared for psychiatric evaluation. Critical care attestation.: If time is entered above; I have spent that time in minutes in the direct care of this critically ill patient, excluding procedure time. ED Disposition Clinical Impression: Encounter for psychiatric assessment Disposition: DC/TX-65 PSY HOSP/PSY UNIT Is pt being admited?: No Does the pt Need Aspirin: No Condition: Stable Referrals: PRIMARY CARE, [Primary Care Provider] - 3-5 Days
[2018-03-02] MEDS ORDERED: GEODON IM ONE ×4 (01:08→12:36)
[2018-03-02] MEDS: ATIVAN IM ONE (09:15)
[2018-03-02] MEDS ORDERED: ATIVAN ONE (12:03)
[2018-03-02] MEDS ORDERED: BENADRYL ONE (12:03)
[2018-03-02] MEDS ORDERED: HALDOL ONE (12:23)
--- NOTE | 2018-03-02 13:23 | Consultation ---
History of Present Illness - Reason for Consult Consult date: 03/02/18 Reason for consult: Mental health Evaluation Requesting physician: GLADYS WRIGHT - Chief Complaint Chief complaint: "The patient could not be assessed" - History of Present Psychiatric Illness 58-year-old female who presented to the ER for bizarre behavior. Today the patient was agitated and could not be assessed. She only mumble sounds when asked questions. Medications and Allergies Allergies Allergy/AdvReac Type Severity Reaction Status Date / Time hydromorphone [From Dilaudid] Allergy Unknown Verified 03/01/18 21:50 phenobarbital Allergy Unknown Verified 10/28/14 09:33 Home Medications Medication Instructions Recorded Confirmed Last Taken Type ALBUTEROL Inhaler (OR & NICU) 2 puff IH QID PRN #1 inhalation 10/31/14 09/14/16 1 Day Ago Rx [ProAir HFA Inhaler] ~08/13/16 Calc Carb/Vit D 500 mg-200 Uni 2 each PO BID tablet 10/31/14 09/14/16 1 Day Ago Rx [Oysco D 500 mg-200 Unit] ~08/13/16 Aspirin EC [Aspirin Enteric Coated 81 mg PO QDAY #30 tablet 07/16/16 09/14/16 1 Day Ago Rx TAB] ~08/13/16 Furosemide [Lasix TAB] 20 mg PO QDAY #30 tablet 07/16/16 09/14/16 1 Day Ago Rx ~08/13/16 Ipratropium/Albuterol Sulfate 1 ampul IH TIDRT #100 ampul.neb 07/16/16 09/14/16 1 Day Ago Rx [DUONEB *Not for PRN Use*] ~08/13/16 Potassium Chloride [K-Dur] 20 meq PO Q12H #30 tablet 07/16/16 09/14/16 1 Day Ago Rx ~08/13/16 Venlafaxine HCl [Venlafaxine] 100 mg PO TIDWM #30 tablet 07/16/16 09/14/16 1 Day Ago Rx ~08/13/16 ISOSORBIDE MONOnitrate [Imdur ER] 30 mg PO DAILY 08/08/16 09/14/16 1 Day Ago History ~08/13/16 Pantoprazole [Protonix TAB] 40 mg PO QDAY 08/08/16 09/14/16 1 Day Ago History ~08/13/16 Sucralfate 1 gm PO BID 08/08/16 09/14/16 1 Day Ago History ~08/13/16 amLODIPine [Norvasc] 10 mg PO DAILY 08/08/16 09/14/16 1 Day Ago History ~08/13/16 AtorvaSTATin [Lipitor] 40 mg PO QHS #30 tablet 08/14/16 09/14/16 Unknown Rx Lisinopril [Zestril TAB] 2.5 mg PO QDAY #30 tablet 08/14/16 09/14/16 Unknown Rx Metoprolol [Lopressor TAB] 25 mg PO Q6H #60 tablet 08/14/16 09/14/16 Unknown Rx oxyCODONE /ACETAMINOPHEN [Percocet 1 tab PO QHS PRN #30 tablet 08/23/16 09/14/16 Unknown Rx 5/325 mg] predniSONE [Deltasone] 1 dose PO QDAY #1 mo 08/23/16 09/14/16 Unknown Rx Past psychiatric history - Past Medical History Past Medical History: other (Unable to obatin ) Past Surgical History: Other (Unable to obtain) - past Psychiatric treatment and history psychiatric treatment history: Hx of PCP use per the record. Unable to obtain a fam psy hx. - Social History Social history: other (Unable to obtain) Mental Status Exam - Vital signs Last Vital Signs Temp 99.1 F 03/02/18 01:51 Pulse 117 H 03/02/18 12:10 Resp 18 03/02/18 12:11 BP 174/83 03/02/18 12:10 Pulse Ox 98 03/02/18 12:11 - Exam Narrative exam: Unable to complete the MSE because of the patient's condition. Results Result Diagrams: 03/01/18 19:41 03/01/18 19:41 Abnormal lab results 03/01/18 03/01/18 03/01/18 Range/Units 19:41 19:41 19:41 WBC 15.6 H (4.5-11.0) K/mm3 MCH 23 L (28-32) pg MCHC 29 L (30-34) % RDW 19.2 H (13.2-15.2) % Lymph % (Auto) 8.5 L (13.4-35.0) % [place] % (Auto) 7.5 H (0.0-7.3) % [place] # 1.2 H (0.0-0.8) K/mm3 Seg Neutrophils % 80.7 H (40.0-70.0) % Seg Neutrophils # 12.6 H (1.8-7.7) K/mm3 Carbon Dioxide 21 L (22-30) mmol/L BUN 22 H (7-17) mg/dL Glucose 118 H (65-100) mg/dL Albumin 3.7 L (3.9-5) g/dL Salicylates < 0.3 L (2.8-20.0) mg/dL Acetaminophen (10.0-30.0) ug/mL 03/01/18 Range/Units 19:41 WBC (4.5-11.0) K/mm3 MCH (28-32) pg MCHC (30-34) % RDW (13.2-15.2) % Lymph % (Auto) (13.4-35.0) % [place] % (Auto) (0.0-7.3) % [place] # (0.0-0.8) K/mm3 Seg Neutrophils % (40.0-70.0) % Seg Neutrophils # (1.8-7.7) K/mm3 Carbon Dioxide (22-30) mmol/L BUN (7-17) mg/dL Glucose (65-100) mg/dL Albumin (3.9-5) g/dL Salicylates (2.8-20.0) mg/dL Acetaminophen < 5.0 L (10.0-30.0) ug/mL All other labs normal. Assessment and Plan Assessment and plan: Impression:: Today the patient was agitated and could not be assessed. Positive for PCP and opioids. The patient is in restraints. Recommendation/Plan: Continue 1013 and reassess in 24 hours. Start Haldol 5 mg IM Q6hrs PRN for acute agitation. Dispo: Once the patient is reassessed, proper dispo will be determined. Will staff with Dr Dietrich.
[2018-03-02 15:33] LABS: Basophils % (Auto) 0.4 % (0.0-1.8); Eosinophils % (Auto) 0.1 % (0.0-4.3); Lymphocytes % (Auto) 8.4 % (13.4-35.0); Mean Corpuscular HGB Conc 30 % (30-34); Mean Corpuscular Volume 75 fl (79-97); Platelet Count 156 K/mm3 (140-440); Red Blood Count 5.43 M/mm3 (3.65-5.03); Red Cell Distribution Width 18.8 % (13.2-15.2)
[2018-03-02 15:39] LABS: Hematocrit 40.9 % (30.3-42.9); Hemoglobin 12.4 gm/dl (10.1-14.3)
[2018-03-02 15:45] LABS: BUN/Creatinine Ratio 40; Blood Urea Nitrogen 12 mg/dL (7-17); Calcium 8.7 mg/dL (8.4-10.2); Hemolysis Index 1
--- NOTE | 2018-03-02 15:51 | XRay Report ---
FINAL REPORT EXAM: XR CHEST 1V AP HISTORY: SOB AND TACHYPNEA TECHNIQUE: AP portable view of the chest PRIORS: CXR 09/14/2016 FINDINGS: Lines, tubes, and devices: N/A Lungs and pleura: Trachea is normal in position. Bibasilar linear atelectasis is noted. Lungs are oth erwise clear of consolidation, pleural effusion, vascular congestion, or pneumothorax. Cardiomediastinal silhouette: Cardiac and mediastinal silhouettes are unremarkable. Other: Bony structures demonstrate bilateral Jarvis rods throughout the thoracic spine with an ad ditional fixation device to the right of the spine. IMPRESSION: Bibasilar linear atelectasis
[2018-03-02] MEDS ORDERED: NACL 0.9% 1000 ML 1,000 ML IV ONE ×2 (16:26→18:11)
--- NOTE | 2018-03-02 16:26 | Emergency Department Report ---
Blank Doc - Documentation Documentation: I was asked to evaluate Miss Wolf. Patient was admitted to the emergency room with acute altered mental status and possible acute psychosis secondary to PCP. Patient is obtunded, tachycardic and tachypneic. Patient was really agitated early today and she was given Geodon twice. I reviewed her blood work which showed a white count of 15.6 with left shift. Urine is negative for infection. I ordered a chest x-ray and I repeated her blood work. I also order an ABG. I wrote for a liter of fluid. I will sign out the patient to coming physician for further management.
[2018-03-02 17:32] LABS: Creatine Kinase MB 17.1 ng/mL (0.0-4.0)
[2018-03-02] MEDS ORDERED: ZOSYN/NS 4.5GM/100ML 4.5 GM/100 ML VIAL IV ONE (18:10)
--- NOTE | 2018-03-02 18:17 | History and Physical Report ---
History of Present Illness Chief complaint: Confused, History of present illness: 58 YO Female with HTN, COPD, CAD S/P Stent Placement, Nicotine Dependence, PCP Dependence presents to ED for evaluation. Pt initially seen and evaluated in ED and boarded for Psychosis. Examination requested by ED physician for evaluation of increased work of breathing. Pt lethargic and unable to provide history. Pt history taken from medical record, and ED staff. Pt found to be in respiratory distress secondary to COPD exacerbation, SIRS, as well as Rhabdomyolysis and Encephalopathy. Pt admitted to medical floor. No further history obtainable. Psychiatry consulted in ED. Past History Past Medical History: acute [place], CAD, COPD, hypertension, other (Unable to obatin ) Past Surgical History: Other (stent placement) Social history: , smoking, other (Unable to obtain) Family history: hypertension Medications and Allergies Allergies Allergy/AdvReac Type Severity Reaction Status Date / Time hydromorphone [From Dilaudid] Allergy Unknown Verified 03/01/18 21:50 phenobarbital Allergy Unknown Verified 10/28/14 09:33 Home Medications Medication Instructions Recorded Confirmed Last Taken Type Venlafaxine HCl [Venlafaxine] 100 mg PO TIDWM #30 tablet 07/16/16 03/02/18 1 Day Ago Rx ~08/13/16 Pantoprazole [Protonix TAB] 40 mg PO QDAY 08/08/16 03/02/18 1 Day Ago History ~08/13/16 amLODIPine [Norvasc] 10 mg PO DAILY 08/08/16 03/02/18 1 Day Ago History ~08/13/16 Baclofen [Lioresal] 10 mg PO BID 03/02/18 03/02/18 Unknown History Lisinopril [Zestril TAB] 10 mg PO QDAY 03/02/18 03/02/18 Unknown History Metoprolol Xl [Toprol Xl] 100 mg PO BID 03/02/18 03/02/18 Unknown History Nitroglycerin [Nitrostat] 0.4 mg SL Q5M PRN 03/02/18 03/02/18 Unknown History busPIRone [Buspar] 5 mg PO BID 03/02/18 03/02/18 Unknown History diphenhydrAMINE [Benadryl CAP] 25 mg PO QHS PRN 03/02/18 03/02/18 Unknown History Active Meds: Active Medications Haloperidol Lactate (Haldol) 5 mg IM Q6HR PRN PRN Reason: Agitation Piperacillin Sod/Tazobactam Sod (Zosyn/Ns 4.5gm/100ml) 4.5 gm in 100 mls @ 200 mls/hr IV ONCE ONE Stop: 03/02/18 18:39 Sodium Chloride (Nacl 0.9% 1000 Ml) 1,000 mls @ 999 mls/hr IV BOLUS ONE Stop: 03/02/18 19:11 Review of Systems ROS unobtainable: due to mental status Exam - Constitutional Vitals: Temp Pulse Resp BP Pulse Ox 97.5 F L 127 H 32 H 141/72 87 03/02/18 13:34 03/02/18 15:15 03/02/18 15:15 03/02/18 15:15 03/02/18 15:15 General appearance: Present: mild distress - EENT Eyes: Present: miosis - Neck Neck: Present: supple, normal ROM - Respiratory Respiratory effort: labored Respiratory: bilateral: diminished, rhonchi - Cardiovascular Heart Sounds: Present: S1 & S2. Absent: rub, click - Extremities Extremities: pulses symmetrical, No edema Peripheral Pulses: abnormal - Abdominal General gastrointestinal: Present: soft, non-tender, non-distended, normal bowel sounds Female genitourinary: Present: normal - Integumentary Integumentary: Present: clear, warm, dry - Musculoskeletal Musculoskeletal: generalized weakness - Psychiatric Psychiatric: no appropriate mood/affect, no intact judgment & insight, no memory intact, agitated - Neurologic Neurologic: CNII-XII intact, moves all extremities, no gait normal Results - Labs CBC & Chem 7: 03/02/18 15:19 03/02/18 15:19 Labs: Abnormal lab results 03/01/18 03/01/18 03/01/18 Range/Units 19:41 19:41 19:41 WBC 15.6 H (4.5-11.0) K/mm3 RBC (3.65-5.03) M/mm3 MCV (79-97) fl MCH 23 L (28-32) pg MCHC 29 L (30-34) % RDW 19.2 H (13.2-15.2) % Lymph % (Auto) 8.5 L (13.4-35.0) % [place] % (Auto) 7.5 H (0.0-7.3) % Lymph # (1.2-5.4) K/mm3 [place] # 1.2 H (0.0-0.8) K/mm3 Seg Neutrophils % 80.7 H (40.0-70.0) % Seg Neutrophils # 12.6 H (1.8-7.7) K/mm3 Potassium (3.6-5.0) mmol/L Carbon Dioxide 21 L (22-30) mmol/L BUN 22 H (7-17) mg/dL Creatinine (0.7-1.2) mg/dL Glucose 118 H (65-100) mg/dL Total Creatine Kinase (30-135) units/L CK-MB (CK-2) (0.0-4.0) ng/mL Albumin 3.7 L (3.9-5) g/dL Salicylates < 0.3 L (2.8-20.0) mg/dL Acetaminophen (10.0-30.0) ug/mL 03/01/18 03/02/18 03/02/18 Range/Units 19:41 15:19 15:19 WBC 11.5 H (4.5-11.0) K/mm3 RBC 5.43 H (3.65-5.03) M/mm3 MCV 75 L (79-97) fl MCH 23 L (28-32) pg MCHC (30-34) % RDW 18.8 H (13.2-15.2) % Lymph % (Auto) 8.4 L (13.4-35.0) % [place] % (Auto) 9.0 H (0.0-7.3) % Lymph # 1.0 L (1.2-5.4) K/mm3 [place] # 1.0 H (0.0-0.8) K/mm3 Seg Neutrophils % 82.1 H (40.0-70.0) % Seg Neutrophils # 9.5 H (1.8-7.7) K/mm3 Potassium 3.2 L D (3.6-5.0) mmol/L Carbon Dioxide 31 H D (22-30) mmol/L BUN (7-17) mg/dL Creatinine 0.3 L D (0.7-1.2) mg/dL Glucose 114 H (65-100) mg/dL Total Creatine Kinase (30-135) units/L CK-MB (CK-2) (0.0-4.0) ng/mL Albumin (3.9-5) g/dL Salicylates (2.8-20.0) mg/dL Acetaminophen < 5.0 L (10.0-30.0) ug/mL 03/02/18 Range/Units 17:04 WBC (4.5-11.0) K/mm3 RBC (3.65-5.03) M/mm3 MCV (79-97) fl MCH (28-32) pg MCHC (30-34) % RDW (13.2-15.2) % Lymph % (Auto) (13.4-35.0) % [place] % (Auto) (0.0-7.3) % Lymph # (1.2-5.4) K/mm3 [place] # (0.0-0.8) K/mm3 Seg Neutrophils % (40.0-70.0) % Seg Neutrophils # (1.8-7.7) K/mm3 Potassium (3.6-5.0) mmol/L Carbon Dioxide (22-30) mmol/L BUN (7-17) mg/dL Creatinine (0.7-1.2) mg/dL Glucose (65-100) mg/dL Total Creatine Kinase 2129 H (30-135) units/L CK-MB (CK-2) 17.1 H (0.0-4.0) ng/mL Albumin (3.9-5) g/dL Salicylates (2.8-20.0) mg/dL Acetaminophen (10.0-30.0) ug/mL Assessment and Plan - Patient Problems (1) SIRS (systemic inflammatory response syndrome) Current Visit: Yes Status: Acute Plan to address problem: IV antibiotic therapy, cbc, cmp, urinalysis, chest x ray. (2) Encephalopathy Current Visit: Yes Status: Acute Plan to address problem: CT Head, neuro check, seizure precautions, supportive care, treat psychosis (3) Acute exacerbation of chronic obstructive pulmonary disease (COPD) Current Visit: No Status: Acute Plan to address problem: Supplemental oxygen, nebulizer therapy, ABG, NIPPV as clinically indicated, chest x ray, pulse oximetry, IV steroid therapy, Iv antibiotic therapy (4) Acute psychosis Current Visit: No Status: Acute Plan to address problem: Psychiatry consulted, [address] (5) Rhabdomyolysis Current Visit: Yes Status: Acute Plan to address problem: IVF resuscitation therapy, repeat ck level, monitor uop q shift, IV bicarbonate, bmp to monitor serum creatnine (6) DVT prophylaxis Current Visit: Yes Status: Acute Plan to address problem: SCD to BLE while in bed.
[2018-03-02] MEDS ORDERED: ZOFRAN IV PRN (18:23)
[2018-03-02] MEDS ORDERED: TYLENOL PO PRN (18:23)
[2018-03-02] MEDS ORDERED: SODIUM CHLORIDE FLUSH SYRINGE 10 ML IV PRN (18:23)
[2018-03-02] MEDS ORDERED: BENADRYL PO PRN (18:26)
[2018-03-02] MEDS ORDERED: VANCOMYCIN PHARMACY TO DOSE IV SCH (19:00)
[2018-03-02] MEDS ORDERED: VANCOMYCIN 1,500 MG in NACL 0.9% 500 ML 500 ML IV ONE (19:00)
[2018-03-02] MEDS: SOLU-Medrol IV SCH (21:37)
[2018-03-02] MEDS: BUSPAR PO SCH (21:37)
[2018-03-02] MEDS: SODIUM CHLORIDE FLUSH SYRINGE 10 ML IV SCH (21:37)
[2018-03-02] MEDS: LIORESAL PO SCH (21:37)
[2018-03-02] MEDS: EFFEXOR PO SCH ×2 (22:03→22:04)
[2018-03-03] MEDS: HALDOL IM PRN ×2 (01:18→06:44)
[2018-03-03] MEDS ORDERED: VANCOMYCIN/NS 1 GM/250 ML 1 GM/250 ML BAG IV SCH (07:00)
[2018-03-03] MEDS ORDERED: VENLAFAXINE HCL 100 MG PO SCH (08:00)
[2018-03-03] MEDS: EFFEXOR PO SCH ×6 (10:50→21:42)
[2018-03-03] MEDS: PROTONIX PO SCH (10:51)
[2018-03-03] MEDS: ZESTRIL PO SCH (10:51)
[2018-03-03] MEDS: LIORESAL PO SCH ×2 (10:51→21:40)
[2018-03-03] MEDS: BUSPAR PO SCH ×2 (10:51→21:42)
[2018-03-03] MEDS: NORVASC PO SCH (10:52)
[2018-03-03] MEDS: SOLU-Medrol IV SCH ×2 (10:52→21:40)
[2018-03-03] MEDS: SODIUM CHLORIDE FLUSH SYRINGE 10 ML IV SCH ×2 (10:57→21:43)
--- NOTE | 2018-03-03 11:35 | Progress Note ---
Assessment and Plan Assessment and plan: C 58 YO Female with HTN, COPD, CAD S/P Stent Placement, Nicotine Dependence, PCP Dependence presents with confusion and agitation Past History Past Medical History: acute CA, CAD, COPD, hypertension, PCP abuse, polysubstance abuse Diagnosis SIRS (systemic inflammatory response syndrome) Acute toxic metabolic Encephalopathy Acute exacerbation of chronic obstructive pulmonary disease (COPD) psychosis? PCP positive on UDS opioid dependence Rhabdomyolysis Plan to address problem: Discussed with family and mental health, patient has access to money, she is not abusing PCP, but combination of her psych meds and Benadryl, can cause false positive on UDS Continue 1013 evaluated by mental health cxr, UA and CTH neg MH consult IVF steroids, nebs and RT consult DVT ppx lovenox ( History Interval history: Review of systems Constitutional: No fevers, no malaise, no joint pains CVS: No chest pain, no orthopnea, no dyspnea on exertion, no pedal edema GI: No abdominal pain, no diarrhea, no vomiting, no constipation Respiratory: No shortness of breath, no wheezing, no coughing Hospitalist Physical - Physical exam Narrative exam: General.: Appears well, no distress, nontoxic HEENT: Moist mucous membranes, extraocular muscles intact, no lymphadenopathy Neck: supple Cardiac: S1-S2 heard Lungs: clear to auscultation bilaterally Abdomen: soft , nontender, nondistended, bowel sounds positive Extremities: no edema clubbing or cyanosis Skin: no rash or lesions Neurologic: no gross focal deficits Psych: calm, and cooperative - Constitutional Vitals: Temp Pulse Resp BP Pulse Ox 97.2 F L 115 H 26 H 119/66 93 03/03/18 00:46 03/03/18 00:46 03/03/18 00:46 03/03/18 00:46 03/03/18 00:46 General appearance: Present: mild distress Results - Labs CBC & Chem 7: 03/02/18 15:19 03/02/18 15:19 Labs: Laboratory Last Values WBC 11.5 K/mm3 (4.5-11.0) H 03/02/18 15:19 RBC 5.43 M/mm3 (3.65-5.03) H 03/02/18 15:19 Hgb 12.4 gm/dl (10.1-14.3) 03/02/18 15:19 Hct 40.9 % (30.3-42.9) 03/02/18 15:19 MCV 75 fl (79-97) L 03/02/18 15:19 MCH 23 pg (28-32) L 03/02/18 15:19 MCHC 30 % (30-34) 03/02/18 15:19 RDW 18.8 % (13.2-15.2) H 03/02/18 15:19 Plt Count 156 K/mm3 (140-440) 03/02/18 15:19 Lymph % (Auto) 8.4 % (13.4-35.0) L 03/02/18 15:19 [place] % (Auto) 9.0 % (0.0-7.3) H 03/02/18 15:19 Eos % (Auto) 0.1 % (0.0-4.3) 03/02/18 15:19 Baso % (Auto) 0.4 % (0.0-1.8) 03/02/18 15:19 Lymph # 1.0 K/mm3 (1.2-5.4) L 03/02/18 15:19 [place] # 1.0 K/mm3 (0.0-0.8) H 03/02/18 15:19 Eos # 0.0 K/mm3 (0.0-0.4) 03/02/18 15:19 Baso # 0.0 K/mm3 (0.0-0.1) 03/02/18 15:19 Seg Neutrophils % 82.1 % (40.0-70.0) H 03/02/18 15:19 Seg Neutrophils # 9.5 K/mm3 (1.8-7.7) H 03/02/18 15:19 POC ABG pH 7.420 (7.35-7.45) 03/02/18 18:19 POC ABG pCO2 45.3 (35-45) H 03/02/18 18:19 POC ABG pO2 63 (80-105) L 03/02/18 18:19 POC ABG HCO3 29.4 03/02/18 18:19 POC ABG Total CO2 31 03/02/18 18:19 POC ABG O2 Sat 92 03/02/18 18:19 POC ABG Base Excess 5 03/02/18 18:19 FiO2 32 % 03/02/18 18:19 Sodium 145 mmol/L (137-145) D 03/02/18 15:19 Potassium 3.2 mmol/L (3.6-5.0) L D 03/02/18 15:19 Chloride 103.3 mmol/L (98-107) 03/02/18 15:19 Carbon Dioxide 31 mmol/L (22-30) H D 03/02/18 15:19 Anion Gap 14 mmol/L 03/02/18 15:19 BUN 12 mg/dL (7-17) 03/02/18 15:19 Creatinine 0.3 mg/dL (0.7-1.2) L D 03/02/18 15:19 Estimated GFR > 60 ml/min 03/02/18 15:19 BUN/Creatinine Ratio 40 % 03/02/18 15:19 Glucose 114 mg/dL (65-100) H 03/02/18 15:19 Lactic Acid 1.30 mmol/L (0.7-2.0) 03/02/18 15:23 Calcium 8.7 mg/dL (8.4-10.2) 03/02/18 15:19 Total Bilirubin 0.30 mg/dL (0.1-1.2) 03/01/18 19:41 AST 25 units/L (5-40) 03/01/18 19:41 ALT 8 units/L (7-56) 03/01/18 19:41 Alkaline Phosphatase 114 units/L (35-129) 03/01/18 19:41 Total Creatine Kinase 1843 units/L (30-135) H 03/03/18 05:04 CK-MB (CK-2) 17.1 ng/mL (0.0-4.0) H 03/02/18 17:04 CK-MB (CK-2) Rel Index 0.8 (0-4) 03/02/18 17:04 Total Protein 7.3 g/dL (6.3-8.2) 03/01/18 19:41 Albumin 3.7 g/dL (3.9-5) L 03/01/18 19:41 Albumin/Globulin Ratio 1.0 % 03/01/18 19:41 TSH 1.720 mlU/mL (0.270-4.200) 03/01/18 19:45 Urine Color Yellow (Yellow) 03/01/18 Unknown Urine Turbidity Clear (Clear) 03/01/18 Unknown Urine pH 5.0 (5.0-7.0) 03/01/18 Unknown Ur Specific [place] 1.025 (1.003-1.030) 03/01/18 Unknown Urine Protein 100 mg/dl mg/dL (Negative) 03/01/18 Unknown Urine Glucose (UA) Neg mg/dL (Negative) 03/01/18 Unknown Urine Ketones 20 mg/dL (Negative) 03/01/18 Unknown Urine Blood Sm (Negative) 03/01/18 Unknown Urine Nitrite Neg (Negative) 03/01/18 Unknown Urine Bilirubin Neg (Negative) 03/01/18 Unknown Urine Urobilinogen 4.0 mg/dL (<2.0) 03/01/18 Unknown Ur Leukocyte Esterase Neg (Negative) 03/01/18 Unknown Urine WBC (Auto) 1.0 /HPF (0.0-6.0) 03/01/18 Unknown Urine RBC (Auto) 1.0 /HPF (0.0-6.0) 03/01/18 Unknown U Epithel Cells (Auto) < 1.0 /HPF (0-13.0) 03/01/18 Unknown Urine Mucus Few /HPF 03/01/18 Unknown Salicylates < 0.3 mg/dL (2.8-20.0) L 03/01/18 19:41 Urine Opiates Screen Presumptive positive 03/01/18 Unknown Urine Methadone Screen Presumptive negative 03/01/18 Unknown Acetaminophen < 5.0 ug/mL (10.0-30.0) L 03/01/18 19:41 Ur Barbiturates Screen Presumptive negative 03/01/18 Unknown Ur Phencyclidine Scrn Presumptive positive 03/01/18 Unknown Ur Amphetamines Screen Presumptive negative 03/01/18 Unknown U Benzodiazepines Scrn Presumptive negative 03/01/18 Unknown Urine Cocaine Screen Presumptive negative 03/01/18 Unknown U Marijuana (THC) Screen Presumptive negative 03/01/18 Unknown Drugs of Abuse Note Disclamer 03/01/18 Unknown Plasma/Serum Alcohol < 0.01 % (0-0.07) 03/01/18 19:41
[2018-03-03] MEDS ORDERED: NACL 0.45% 1000 ML 1,000 ML IV SCH (12:00)
[2018-03-03] MEDS: ZITHROMAX 500 MG in NACL 0.9% 250ML 250 ML IV SCH (13:05)
--- NOTE | 2018-03-03 13:27 | Progress Note ---
Addendum entered and electronically signed by DONTE PATEL NP 03/04/18 11:55: Correction: Discussed possible suicidality/medication induced shayne with the patient reference Effexor. Original Note: Subjective - Reason for Consult Consult date: 03/03/18 Reason for consult: Psychiatry Follow-up - Chief Complaint Chief complaint: "I feel so so" 58-year-old female who presented to the ER for bizarre behavior. Today the patient is calm, but lethargic during the assessment.The patient would fall asleep intermittently during the interview. She was able to answer some questions about her mental health. She stated that she has a hx of depression/anxiety and take Effexor and Buspar. The patient was asked about PCP use, she stated, "I have never used PCP." She also stated that she may have taken several oxycodone pills the day of her crisis to alleviate her back pain. Per collateral information from the patient's sister Kayla Espinoza who was at the bedside, she stated that the patient has a hx of opioid use. She stated that the patient had 3 or 4 back surgery and experience severe pain often. She denies that the patient has a hx of PCP use. She stated that her sister was erratic with her behavior at home and decided to call 911. No gestures of SI/Hi's by the patient. Mental Status Exam - Vital signs Last Vital Signs Temp 97.6 F 03/03/18 11:45 Pulse 115 H 03/03/18 00:46 Resp 14 03/03/18 11:45 BP 105/60 03/03/18 11:45 Pulse Ox 92 03/03/18 12:59 - Exam Narrative exam: MSE: Appearance: calm Behavior: regular eye contact Speech: regular rate and tone Mood: "a little down" Affect: flat Thought Process: circumstantial Thought Content: denies SI/HI's and VH's Motor Activity: sitting up in bed Cognition: A/O x 3 Insight: variable Judgment: variable Assessment and Plan mpression:: Hx of Depression/Anxiety per the patient. Opioid Use DO. Today the patient is calm, but lethargic during the assessment. DDx Somatic Symptom DO Recommendation/Plan: Reevaluate the 1013 in 24 hour. Continue home medications (Buspar and Effexor). Discussed possible suicidality/medication induced shayne with the patient reference Edie. Monitor for opiate withdrawals. Reassess the patient in 24 hours. Dispo: If the patient's 1013 is rescinded in 24 hours, she can follow up with [facility] for [facility] psy services. Staffed with Dr Dietrich.
[2018-03-03] MEDS: PROVENTIL IH SCH ×2 (16:10→23:23)
[2018-03-04] MEDS: PROVENTIL IH SCH ×2 (07:55→15:26)
--- NOTE | 2018-03-04 10:32 | Consultation ---
Addendum entered and electronically signed by FABIAN GOMEZ MD 03/04/18 11:00: Patient seen and examined Evidence of narrow complex SVT suspect for atrial tachycardia Patient was admitted for AMS but her metoprolol was not resumed. Patient denies chest pain or shortness of breath She typically takes metoprolol 100 mg po bid as outpatient. Therefore will resume metoprolol at 50 mg po bid due to borderline BP this morning If BP tolerates in the near future, would increase dose to 100 mg po bid No further cardiac work-up is needed Original Note: History of Present Illness Consult date: 03/04/18 Consult reason: other (SVT) History of present illness: Patient is a 58 year old woman with multiple medical problems including inferior OH and coronary artery disease. She does not follow with a instructional paraprofessional as an outpatient. In 2017 a cardiac cath revealed complete occlusion of the RCA that was recommend for medical therapy. She did undergo PCI of the LAD with bare metal stent. Patient has completed 1 month of DAPT post bare metal stent. Plavix was later discontinued due to melena and anemia. On aspirin therapy. In addition, patient has a history of paroxysmal atrial fibrillation managed with metoprolol for suppression. Her latest echocardiogram reports a normal LV ejection fraction 55-60%. Patient was brought to this hospital altered mental status. A cardiac consultation was requested for SVT. There is no EKG available for review. Telemetry strips shows mutifocal atrial tachycardia. Patient reports she takes metoprolol 100mg twice daily which has not been resumed since her admission. She denies chest pain, unusual shortness of breath and dizziness. There were no reports of syncope. Past History Past Medical History: acute OH, CAD, COPD, hypertension, other (Unable to obatin ) Past Surgical History: Other (stent placement) Social history: , smoking, other (Unable to obtain) Family history: hypertension Medications and Allergies Allergies Allergy/AdvReac Type Severity Reaction Status Date / Time hydromorphone [From Dilaudid] Allergy Unknown Verified 03/01/18 21:50 phenobarbital Allergy Unknown Verified 10/28/14 09:33 Home Medications Medication Instructions Recorded Confirmed Last Taken Type Venlafaxine HCl [Venlafaxine] 100 mg PO TIDWM #30 tablet 07/16/16 03/02/18 1 Day Ago Rx ~08/13/16 Pantoprazole [Protonix TAB] 40 mg PO QDAY 08/08/16 03/02/18 1 Day Ago History ~08/13/16 amLODIPine [Norvasc] 10 mg PO DAILY 08/08/16 03/02/18 1 Day Ago History ~08/13/16 Baclofen [Lioresal] 10 mg PO BID 03/02/18 03/02/18 Unknown History Lisinopril [Zestril TAB] 10 mg PO QDAY 03/02/18 03/02/18 Unknown History Metoprolol Xl [Toprol Xl] 100 mg PO BID 03/02/18 03/02/18 Unknown History Nitroglycerin [Nitrostat] 0.4 mg SL Q5M PRN 03/02/18 03/02/18 Unknown History busPIRone [Buspar] 5 mg PO BID 03/02/18 03/02/18 Unknown History diphenhydrAMINE [Benadryl CAP] 25 mg PO QHS PRN 03/02/18 03/02/18 Unknown History Active Meds: Active Medications Acetaminophen (Tylenol) 650 mg PO Q4H PRN PRN Reason: Pain MILD(1-3)/Fever >100.5/PRAJAPATI Albuterol (Proventil) 2.5 mg IH Q8HRT [facility] Last Admin: 03/04/18 07:55 Dose: 2.5 mg Documented by: Amlodipine Besylate (Norvasc) 10 mg PO DAILY [facility] Last Admin: 03/03/18 10:52 Dose: 10 mg Documented by: Baclofen (Lioresal) 10 mg PO BID [facility] Last Admin: 03/03/18 21:40 Dose: 10 mg Documented by: Buspirone HCl (Buspar) 5 mg PO BID [facility] Last Admin: 03/03/18 21:42 Dose: 5 mg Documented by: Diphenhydramine HCl (Benadryl) 25 mg PO QHS PRN PRN Reason: Sleep Last Admin: 03/02/18 22:07 Dose: 25 mg Documented by: Haloperidol Lactate (Haldol) 5 mg IM Q6HR PRN PRN Reason: Agitation Last Admin: 03/03/18 06:44 Dose: 5 mg Documented by: Azithromycin 500 mg/ Sodium (Chloride) 250 mls @ 250 mls/hr IV Q24HR [facility] Last Admin: 03/03/18 13:05 Dose: 250 mls/hr Documented by: Sodium Chloride (Nacl 0.45% 1000 Ml) 1,000 mls @ 150 mls/hr IV DIRECT [facility] Lisinopril (Zestril) 10 mg PO QDAY [facility] Last Admin: 03/03/18 10:51 Dose: 10 mg Documented by: Methylprednisolone Sodium Succinate (Solu-Medrol) 40 mg IV Q12HR [facility] Last Admin: 03/03/18 21:40 Dose: 40 mg Documented by: Ondansetron HCl (Zofran) 4 mg IV Q8H PRN PRN Reason: Nausea And Vomiting Pantoprazole Sodium (Protonix) 40 mg PO QDAY [facility] Last Admin: 03/03/18 10:51 Dose: 40 mg Documented by: Sodium Chloride (Sodium Chloride Flush Syringe 10 Ml) 10 ml IV BID [facility] Last Admin: 03/03/18 21:43 Dose: 10 ml Documented by: Sodium Chloride (Sodium Chloride Flush Syringe 10 Ml) 10 ml IV PRN PRN PRN Reason: LINE FLUSH Venlafaxine HCl (Effexor) 75 mg PO TID [facility] Last Admin: 03/03/18 21:41 Dose: 75 mg Documented by: Venlafaxine HCl (Effexor) 25 mg PO TID [facility] Last Admin: 03/03/18 21:42 Dose: 25 mg Documented by: Physical Examination Vital Signs Pulse Resp Pulse Ox 106 H 24 90 03/01/18 19:24 03/01/18 19:24 03/01/18 19:24 General appearance: no acute distress HEENT: Positive: PERRL Cardiac: Positive: Reg Rate and Rhythm Lungs: Positive: Decreased Breath Sounds Neuro: Positive: Grossly Intact Extremities: Absent: edema Results 03/02/18 15:19 03/02/18 15:19 Assessment and Plan Change in mental status Coronary artery disease There is chronic occlusion of the distal right coronary artery, with unsuccessful angioplasty at [facility]. In addition, there is mid LAD stenosis which was treated successfully (06/26/16) with a bare metal stent at [facility]. On aspirin therapy. Plavix discontinued given ongoing melena and drop in hem oglobin. Patient has completed 1 month of DAPT post BMS Mild Cardiomyopathy EF improved to 50-55% on echocardiogram Hx of COPD on home oxygen Paroxysmal afib/multifocal atrial tachycardia currently in sinus rhythm on metoprolol as an outpatient for suppression not on anticoagulation secondary to melena and anemia. Chronic pain Recommend: Beta blockers for suppression of MAT. Due to boarder line low normal blood pressure we will hold lisinopril and norvasc for now. Instead we will initiate metoprolol 50mg twice daily. Titrate up if blood pressure is able to tolerate.
[2018-03-04] MEDS: NORVASC PO SCH (10:35)
[2018-03-04] MEDS: LIORESAL PO SCH (10:36)
[2018-03-04] MEDS: EFFEXOR PO SCH ×4 (10:36→16:22)
[2018-03-04] MEDS: PROTONIX PO SCH (10:36)
[2018-03-04] MEDS: BUSPAR PO SCH (10:36)
[2018-03-04] MEDS: ZITHROMAX 500 MG in NACL 0.9% 250ML 250 ML IV SCH (10:38)
[2018-03-04] MEDS: SOLU-Medrol IV SCH (10:38)
[2018-03-04] MEDS: SODIUM CHLORIDE FLUSH SYRINGE 10 ML IV SCH (10:38)
[2018-03-04] MEDS: ZESTRIL PO SCH (10:45)
--- NOTE | 2018-03-04 10:52 | Progress Note ---
Subjective - Reason for Consult Consult date: 03/04/18 Reason for consult: Psychiatry Follow-up - Chief Complaint Chief complaint: "I look forward to being discharged" 58-year-old female who presented to the ER for bizarre behavior. Today the patient is calm and cooperative during the assessment. The patient is more lucid today. She stated that she would like a referral to see a psychiatrist once discharged. She stated that she will do a better job at taking her medications as prescribed. She denies SI/HI's and AVH's. She denies any side effects of her medications. Mental Status Exam - Vital signs Last Vital Signs Temp 98.2 F 03/04/18 03:50 Pulse 81 03/04/18 08:09 Resp 18 03/04/18 08:09 BP 105/57 03/04/18 03:50 Pulse Ox 94 03/04/18 07:57 - Exam Narrative exam: MSE: Appearance: calm, cooperative Behavior: regular eye contact Speech: regular rate and tone Mood: "better" Affect: congruent to mood Thought Process: linear Thought Content: denies SI/HI's and VH's Motor Activity: sitting up in bed Cognition: A/O x 3 Insight: appropriate Judgment: appropriate Assessment and Plan Impression: Hx of Depression/Anxiety per the patient. Opioid Use DO. Today the patient is calm and cooperative during the assessment. The patient is no threat to self. DDx Somatic Symptom DO Recommendation/Plan: Rescind 1013. Continue home medications (Buspar and Effexor). Discussed possible suicidality/medication induced shayne with the patient reference Effexor. Discussed the importance to take medication as prescribed. Dispo: The patient can follow up at [facility] for outpatient psy services. Will staff with Dr Dietrich.
[2018-03-04 11:09] VITALS: BP 123/62
--- NOTE | 2018-03-04 14:40 | Discharge Summary ---
Providers - Providers Date of Admission: 03/02/18 18:23 Attending physician: CLAUDIA ALMARAZ MD 03/01/18 19:24 Consult to Mental Health [CONS] Urgent Reason For Exam: ams Place consult to:: DARRIN Notified:: no 03/03/18 11:37 Speech Therapy Evaluation and Treat [CONS] Routine Reason For Exam: dysphagia 03/03/18 11:41 Physical Therapy Evaluation and Treat [CONS] Routine Comment: Reason For Exam: difficulty with ambulation 03/03/18 17:21 Consult to Physician [CONS] Routine Comment: Consulting Provider: JENNA MATTHEWS Physician Instructions: Reason For Exam: svt Primary care physician: FLORESITA MOSELEY Hospitalization Condition: Stable Hospital course: 58 YO Female with HTN, COPD, CAD S/P Stent Placement, Nicotine Dependence, PCP Dependence presents with confusion and agitation Past History Past Medical History: acute [place], CAD, COPD, hypertension, PCP abuse, polysubstance abuse -she was confused and altered which typically occurs when she takes too many of her meds at the same time, likely done by accident, because she can be forgetful. Per her family she is watches all the time, does not leave the house and has no access to money -her UDS was positive for PCP, but likely a false positive due to a combination of her psych meds and benadryl. -She received IV fluids, and oxygen. She Clinically improved, she was weaned off oxygen, and returned to her Baseline mentation. She was seen by Psychiatry team, who agreed with plan of care Diagnosis SIRS (systemic inflammatory response syndrome) Acute toxic metabolic Encephalopathy Acute exacerbation of chronic obstructive pulmonary disease (COPD) Rhabdomyolysis acute respiratory failure with hypoxia Disposition: - TO HOME OR SELFCARE Time spent for discharge: 33 mins Core Measure Documentation - Palliative Care Palliative Care/ Comfort Measures: Not Applicable - Core Measures Any of the following diagnoses?: none Exam - Constitutional Vitals: Temp Pulse Resp BP Pulse Ox 98.2 F 100 H 20 123/62 92 03/04/18 11:06 03/04/18 11:06 03/04/18 11:06 03/04/18 11:06 03/04/18 11:06 General appearance: Present: no acute distress, well-nourished - EENT Eyes: Present: PERRL ENT: hearing intact, clear oral mucosa - Neck Neck: Present: supple, normal ROM - Respiratory Respiratory effort: normal Respiratory: bilateral: CTA - Cardiovascular Heart Sounds: Present: S1 & S2. Absent: rub, click - Extremities Extremities: pulses symmetrical, No edema Peripheral Pulses: within normal limits - Abdominal General gastrointestinal: Present: soft, non-tender, non-distended, normal bowel sounds Female genitourinary: Present: normal - Integumentary Integumentary: Present: clear, warm, dry - Musculoskeletal Musculoskeletal: gait normal, strength equal bilaterally - Psychiatric Psychiatric: appropriate mood/affect, intact judgment & insight - Neurologic Neurologic: CNII-XII intact, moves all extremities Plan Follow up with: PRIMARY CARE, [Referring] - 3-5 Days
[2018-03-05] MEDS ORDERED: ZITHROMAX PO SCH (10:00)
== END 2018-03-04 17:35 | disposition home or self-care (01) | DRG 917 ==
LOC: EEVIPCON 19:12 → ED 19:12 → 3A 03-02 18:23
PROVIDERS: ADMIT Internal Medicine; ATTEND Internal Medicine
PROC: 4A033R1 Measurement of Arterial Saturation, Peripheral, Percutaneous Approach (ICD-10-PCS; principal; 2018-03-02)
DX: T40.991A Poisoning by other psychodysleptics [hallucinogens], accidental (unintentional), initial encounter (principal); G92 Toxic encephalopathy; J96.01 Acute respiratory failure with hypoxia; R65.10 Systemic inflammatory response syndrome (SIRS) of non-infectious origin without acute organ dysfunction; M62.82 Rhabdomyolysis; J44.1 Chronic obstructive pulmonary disease with (acute) exacerbation; I47.1 Supraventricular tachycardia; I42.9 Cardiomyopathy, unspecified; F23 Brief psychotic disorder; F16.10 Hallucinogen abuse, uncomplicated; I10 Essential (primary) hypertension; F17.200 Nicotine dependence, unspecified, uncomplicated; I25.10 Atherosclerotic heart disease of native coronary artery without angina pectoris; F11.10 Opioid abuse, uncomplicated; F32.9 Major depressive disorder, single episode, unspecified; I48.0 Paroxysmal atrial fibrillation; G89.29 Other chronic pain; K21.9 Gastro-esophageal reflux disease without esophagitis; F41.9 Anxiety disorder, unspecified; Z95.5 Presence of coronary angioplasty implant and graft; I25.2 Old myocardial infarction; Z82.49 Family history of ischemic heart disease and other diseases of the circulatory system; Z88.5 Allergy status to narcotic agent; Z79.899 Other long term (current) drug therapy; Y92.89 Other specified places as the place of occurrence of the external cause
CPT/HCPCS: 36415; 70450; 71045; 80048; 80053; 80307; 80320; 81001; 82140; 82550; 82553; 82803; 84443; 85025; 87040; 94640; 94760; 96372; G0378; G0480; J0456; J1200; J1630; J2060; J2543; J2920; J3370; J3486; J7030; J7040; J7050

== ENCOUNTER 2018-05-28 12:29 | Inpatient (IN) | payer MEDICARE ==
[2018-05-28] MEDS ORDERED: NACL 0.9% 1000 ML IV ONE (12:31)
[2018-05-28] MEDS ORDERED: ATIVAN IV ONE (12:41)
[2018-05-28] MEDS ORDERED: ROCEPHIN/NS 2 GM/100 ML 2 GM/100 ML BAG IV SCH (13:00)
[2018-05-28] MEDS ORDERED: ZITHROMAX 500 MG in NACL 0.9% 250ML 250 ML IV SCH (13:00)
[2018-05-28 13:23] LABS: Basophils % (Auto) 0.4 % (0.0-1.8); Lymphocytes # (Auto) 0.8 K/mm3 (1.2-5.4); Lymphocytes % (Auto) 8.5 % (13.4-35.0); Mean Corpuscular HGB Conc 29 % (30-34); Mean Corpuscular Volume 77 fl (79-97); Monocytes # (Auto) 1.1 K/mm3 (0.0-0.8); Monocytes % (Auto) 11.3 % (0.0-7.3); Platelet Count 198 K/mm3 (140-440); Red Blood Count 4.28 M/mm3 (3.65-5.03); Red Cell Distribution Width 19.2 % (13.2-15.2)
[2018-05-28 13:28] LABS: Hematocrit 33.1 % (30.3-42.9); Hemoglobin 9.7 gm/dl (10.1-14.3)
[2018-05-28 13:47] LABS: Alanine Aminotransferase 11 units/L (7-56); Albumin 3.5 g/dL (3.9-5); BUN/Creatinine Ratio 40; Blood Urea Nitrogen 24 mg/dL (7-17); Calcium 8.4 mg/dL (8.4-10.2); Hemolysis Index 8
--- NOTE | 2018-05-28 13:52 | XRay Report ---
AP CHEST: HISTORY: Hypoxia Compared to 03/02/18. Mild cardiomegaly with and mild pulmonary venous congestion are identified which appear relatively stable since the previous exam. No evidence for pneumonia, large pleural effusion or pneumothorax. Previous stabilization of the thoracic spine posteriorly and right laterally is unchanged. Impression: Mild cardiomegaly and pulmonary venous congestion.
[2018-05-28] MEDS ORDERED: NACL 0.9% 500 ML 500 ML IV ONE ×2 (15:11→17:45)
[2018-05-28] MEDS ORDERED: NACL 0.9% 1000 ML 1,000 ML IV ONE (15:12)
[2018-05-28 15:39] LABS: BUN/Creatinine Ratio 44; Blood Urea Nitrogen 22 mg/dL (7-17); Calcium 7.5 mg/dL (8.4-10.2); Hemolysis Index 67
[2018-05-28] MEDS ORDERED: fentaNYL DRIP Premix 2,000 MCG/100 ML BAG IV ONE (16:20)
--- NOTE | 2018-05-28 16:24 | Emergency Department Report ---
ED General Adult HPI - General Chief complaint: Dyspnea/Respdistress Stated complaint: AMS Time Seen by Provider: 05/28/18 12:30 Source: EMS Mode of arrival: Stretcher Limitations: Altered Mental Status - History of Present Illness Initial comments: Patient is a 58-year-old female with past medical history of COPD who is on 2 L of oxygen at home who is brought in for altered mental status. Patient's sister states that for the past 3-4 days she's had a steadily decline in her mental status. Patient was found poorly responsive by paramedics. Patient was given Narcan and was placed on nonrebreather and she became more arousable however her mental status was not at baseline. Patient was acting wild rocking back and forth and is only able to say help me. Patient's keeps taking off her oxygen and does appear to be in some respiratory distress. - Related Data Home Medications Medication Instructions Recorded Confirmed Last Taken Pantoprazole [Protonix TAB] 40 mg PO QDAY 08/08/16 03/02/18 1 Day Ago ~08/13/16 amLODIPine [Norvasc] 10 mg PO DAILY 08/08/16 03/02/18 1 Day Ago ~08/13/16 Baclofen [Lioresal] 10 mg PO BID 03/02/18 03/02/18 Unknown Lisinopril [Zestril TAB] 10 mg PO QDAY 03/02/18 03/02/18 Unknown Metoprolol Xl [Metoprolol 100 mg PO BID 03/02/18 03/02/18 Unknown SUCCINATE ER TAB] Nitroglycerin [Nitrostat] 0.4 mg SL Q5M PRN 03/02/18 03/02/18 Unknown busPIRone [Buspar] 5 mg PO BID 03/02/18 03/02/18 Unknown diphenhydrAMINE [Benadryl CAP] 25 mg PO QHS PRN 03/02/18 03/02/18 Unknown Previous Rx's Medication Instructions Recorded Last Taken Type Venlafaxine HCl [Venlafaxine] 100 mg PO TIDWM #30 tablet 07/16/16 1 Day Ago Rx ~08/13/16 Allergies Allergy/AdvReac Type Severity Reaction Status Date / Time hydromorphone [From Dilaudid] Allergy Unknown Verified 03/01/18 21:50 phenobarbital Allergy Unknown Verified 10/28/14 09:33 ED Review of Systems ROS: Stated complaint: AMS Other details as noted in HPI Comment: All other systems reviewed and negative ED Past Medical Hx - Past Medical History Hx Hypertension: Yes Hx Heart Attack/AMI: Yes Hx Congestive Heart Failure: No (patient denies) Hx Diabetes: No Hx Deep Vein Thrombosis: No Hx GERD: Yes Hx Liver Disease: Yes Hx Psychiatric Treatment: Yes (depression and anxiety) Hx Asthma: No Hx COPD: Yes - Surgical History Hx Coronary Stent: Yes Hx Pacemaker: No Hx Internal Defibrillator: No Additional Surgical History: RONNY, heart stents - Social History Smoking Status: Former Smoker - Medications Home Medications: Home Medications Medication Instructions Recorded Confirmed Last Taken Type Venlafaxine HCl [Venlafaxine] 100 mg PO TIDWM #30 tablet 07/16/16 03/02/18 1 Day Ago Rx ~08/13/16 Pantoprazole [Protonix TAB] 40 mg PO QDAY 08/08/16 03/02/18 1 Day Ago History ~08/13/16 amLODIPine [Norvasc] 10 mg PO DAILY 08/08/16 03/02/18 1 Day Ago History ~08/13/16 Baclofen [Lioresal] 10 mg PO BID 03/02/18 03/02/18 Unknown History Lisinopril [Zestril TAB] 10 mg PO QDAY 03/02/18 03/02/18 Unknown History Metoprolol Xl [Metoprolol 100 mg PO BID 03/02/18 03/02/18 Unknown History SUCCINATE ER TAB] Nitroglycerin [Nitrostat] 0.4 mg SL Q5M PRN 03/02/18 03/02/18 Unknown History busPIRone [Buspar] 5 mg PO BID 03/02/18 03/02/18 Unknown History diphenhydrAMINE [Benadryl CAP] 25 mg PO QHS PRN 03/02/18 03/02/18 Unknown History ED Physical Exam - General Limitations: Altered Mental Status General appearance: alert, anxious, in distress - Head Head exam: Present: atraumatic, normocephalic - Eye Eye exam: Present: normal appearance, PERRL, EOMI - ENT ENT exam: Present: mucous membranes dry - Neck Neck exam: Present: normal inspection - Respiratory Respiratory exam: Present: rhonchi. Absent: normal lung sounds bilaterally, respiratory distress, wheezes, rales, stridor - Cardiovascular Cardiovascular Exam: Present: regular rate, normal rhythm, normal heart sounds. Absent: systolic murmur, diastolic murmur, rubs, gallop - GI/Abdominal GI/Abdominal exam: Present: soft, normal bowel sounds. Absent: distended, tenderness, guarding, rebound, rigid - Extremities Exam Extremities exam: Present: normal inspection - Back Exam Back exam: Present: normal inspection - Neurological Exam Neurological exam: Present: alert, altered - Psychiatric Psychiatric exam: Present: normal affect, normal mood - Skin Skin exam: Present: warm, dry, intact, normal color. Absent: rash ED Course Vital Signs 05/28/18 05/28/18 05/28/18 12:32 12:45 12:51 Temperature 98.2 F Pulse Rate 70 101 H Respiratory 29 H 24 30 H Rate Blood Pressure 89/47 Blood Pressure 131/72 [Left] O2 Sat by Pulse 70 L 94 46 L Oximetry 05/28/18 05/28/18 05/28/18 13:00 13:15 13:30 Temperature Pulse Rate 79 77 73 Respiratory 19 19 20 Rate Blood Pressure 89/40 86/30 82/35 Blood Pressure [Left] O2 Sat by Pulse 94 95 90 Oximetry 05/28/18 05/28/18 05/28/18 13:45 14:00 14:15 Temperature Pulse Rate 68 70 70 Respiratory 21 20 18 Rate Blood Pressure 86/42 80/41 89/47 Blood Pressure [Left] O2 Sat by Pulse 92 Oximetry 05/28/18 05/28/18 05/28/18 14:30 14:45 15:00 Temperature Pulse Rate 70 70 73 Respiratory 18 17 17 Rate Blood Pressure 94/50 99/54 111/56 Blood Pressure [Left] O2 Sat by Pulse 93 90 92 Oximetry 05/28/18 05/28/18 05/28/18 15:15 15:31 15:45 Temperature Pulse Rate 70 76 Respiratory 15 15 19 Rate Blood Pressure 111/56 111/56 111/56 Blood Pressure [Left] O2 Sat by Pulse 94 83 L 77 L Oximetry 05/28/18 05/28/18 05/28/18 16:00 16:15 17:31 Temperature Pulse Rate 85 77 75 Respiratory 20 24 Rate Blood Pressure 109/50 111/54 81/38 Blood Pressure [Left] O2 Sat by Pulse 96 95 Oximetry - Reevaluation(s) Reevaluation #1: 05/28/18 16:23 Patient's second gas shows that her PCO2 has increased into the 80s. Patient has been on BiPAP since her arrival. Blood pressure has improved her O2 sat is improved however her mental status has declined. Patient to be intubated at this time. - Intubation Time Out Performed: Yes Sedative: Etomidate Mg Given: 20 Paralytic: Succinylcholine Mg Given: 100 Laryngoscope: Mahamed Size: 3 ET Tube Size: 7.5 Tube Secured Depth (cm): 20 Tube Secured Location: lips Tube Placement Confirmation: visualized tube passing t, equal breath sounds bilat, no breath sounds over epi, confirmation by capnometr Patient Tolerated Procedure: well ED Medical Decision Making - Lab Data Result diagrams: 05/28/18 13:13 05/28/18 14:50 Lab Results 05/28/18 05/28/18 05/28/18 Range/Units 13:13 13:13 13:13 WBC 9.6 (4.5-11.0) K/mm3 RBC 4.28 (3.65-5.03) M/mm3 Hgb 9.7 L (10.1-14.3) gm/dl Hct 33.1 (30.3-42.9) % MCV 77 L (79-97) fl MCH 23 L (28-32) pg MCHC 29 L (30-34) % RDW 19.2 H (13.2-15.2) % Plt Count 198 (140-440) K/mm3 Lymph % (Auto) 8.5 L (13.4-35.0) % Lyman % (Auto) 11.3 H (0.0-7.3) % Eos % (Auto) 0.0 (0.0-4.3) % Baso % (Auto) 0.4 (0.0-1.8) % Lymph # 0.8 L (1.2-5.4) K/mm3 Lyman # 1.1 H (0.0-0.8) K/mm3 Eos # 0.0 (0.0-0.4) K/mm3 Baso # 0.0 (0.0-0.1) K/mm3 Seg Neutrophils % 79.8 H (40.0-70.0) % Seg Neutrophils # 7.7 (1.8-7.7) K/mm3 D-Dimer 1062.49 H (0-234) ng/mlDDU POC ABG pH (7.35-7.45) POC ABG pCO2 (35-45) POC ABG pO2 (80-105) POC ABG HCO3 (22-26 mml/L) POC ABG Total CO2 (23-27mmol/L) POC ABG O2 Sat POC ABG Base Excess ((-2) - (+3)mmol/L) FiO2 % Sodium 145 (137-145) mmol/L Potassium 3.9 (3.6-5.0) mmol/L Chloride 104.8 (98-107) mmol/L Carbon Dioxide 26 (22-30) mmol/L Anion Gap 18 mmol/L BUN 24 H (7-17) mg/dL Creatinine 0.6 L (0.7-1.2) mg/dL Estimated GFR > 60 ml/min BUN/Creatinine Ratio 40 % Glucose 87 (65-100) mg/dL Lactic Acid (0.7-2.0) mmol/L Calcium 8.4 (8.4-10.2) mg/dL Total Bilirubin 0.30 (0.1-1.2) mg/dL AST 23 (5-40) units/L ALT 11 (7-56) units/L Alkaline Phosphatase 96 (35-129) units/L Troponin T < 0.010 (0.00-0.029) ng/mL Total Protein 6.6 (6.3-8.2) g/dL Albumin 3.5 L (3.9-5) g/dL Albumin/Globulin Ratio 1.1 % Urine Color (Yellow) Urine Turbidity (Clear) Urine pH (5.0-7.0) Ur Specific Minco (1.003-1.030) Urine Protein (Negative) mg/dL Urine Glucose (UA) (Negative) mg/dL Urine Ketones (Negative) mg/dL Urine Blood (Negative) Urine Nitrite (Negative) Urine Bilirubin (Negative) Urine Urobilinogen (<2.0) mg/dL Ur Leukocyte Esterase (Negative) Urine WBC (Auto) (0.0-6.0) /HPF Urine RBC (Auto) (0.0-6.0) /HPF U Epithel Cells (Auto) (0-13.0) /HPF Urine Mucus /HPF 05/28/18 05/28/18 05/28/18 Range/Units 13:13 13:22 14:50 WBC (4.5-11.0) K/mm3 RBC (3.65-5.03) M/mm3 Hgb (10.1-14.3) gm/dl Hct (30.3-42.9) % MCV (79-97) fl MCH (28-32) pg MCHC (30-34) % RDW (13.2-15.2) % Plt Count (140-440) K/mm3 Lymph % (Auto) (13.4-35.0) % Lyman % (Auto) (0.0-7.3) % Eos % (Auto) (0.0-4.3) % Baso % (Auto) (0.0-1.8) % Lymph # (1.2-5.4) K/mm3 Lyman # (0.0-0.8) K/mm3 Eos # (0.0-0.4) K/mm3 Baso # (0.0-0.1) K/mm3 Seg Neutrophils % (40.0-70.0) % Seg Neutrophils # (1.8-7.7) K/mm3 D-Dimer (0-234) ng/mlDDU POC ABG pH 7.249 L (7.35-7.45) POC ABG pCO2 68.9 H (35-45) POC ABG pO2 82 (80-105) POC ABG HCO3 30.1 (22-26 mml/L) POC ABG Total CO2 32 (23-27mmol/L) POC ABG O2 Sat 93 POC ABG Base Excess 3 ((-2) - (+3)mmol/L) FiO2 50 % Sodium (137-145) mmol/L Potassium (3.6-5.0) mmol/L Chloride (98-107) mmol/L Carbon Dioxide (22-30) mmol/L Anion Gap mmol/L BUN (7-17) mg/dL Creatinine (0.7-1.2) mg/dL Estimated GFR ml/min BUN/Creatinine Ratio % Glucose (65-100) mg/dL Lactic Acid 1.50 0.90 (0.7-2.0) mmol/L Calcium (8.4-10.2) mg/dL Total Bilirubin (0.1-1.2) mg/dL AST (5-40) units/L ALT (7-56) units/L Alkaline Phosphatase (35-129) units/L Troponin T (0.00-0.029) ng/mL Total Protein (6.3-8.2) g/dL Albumin (3.9-5) g/dL Albumin/Globulin Ratio % Urine Color (Yellow) Urine Turbidity (Clear) Urine pH (5.0-7.0) Ur Specific Minco (1.003-1.030) Urine Protein (Negative) mg/dL Urine Glucose (UA) (Negative) mg/dL Urine Ketones (Negative) mg/dL Urine Blood (Negative) Urine Nitrite (Negative) Urine Bilirubin (Negative) Urine Urobilinogen (<2.0) mg/dL Ur Leukocyte Esterase (Negative) Urine WBC (Auto) (0.0-6.0) /HPF Urine RBC (Auto) (0.0-6.0) /HPF U Epithel Cells (Auto) (0-13.0) /HPF Urine Mucus /HPF 05/28/18 05/28/18 05/28/18 Range/Units 14:50 16:05 17:57 WBC (4.5-11.0) K/mm3 RBC (3.65-5.03) M/mm3 Hgb (10.1-14.3) gm/dl Hct (30.3-42.9) % MCV (79-97) fl MCH (28-32) pg MCHC (30-34) % RDW (13.2-15.2) % Plt Count (140-440) K/mm3 Lymph % (Auto) (13.4-35.0) % Lyman % (Auto) (0.0-7.3) % Eos % (Auto) (0.0-4.3) % Baso % (Auto) (0.0-1.8) % Lymph # (1.2-5.4) K/mm3 Lyman # (0.0-0.8) K/mm3 Eos # (0.0-0.4) K/mm3 Baso # (0.0-0.1) K/mm3 Seg Neutrophils % (40.0-70.0) % Seg Neutrophils # (1.8-7.7) K/mm3 D-Dimer (0-234) ng/mlDDU POC ABG pH 7.126 L (7.35-7.45) POC ABG pCO2 (35-45) POC ABG pO2 77 L (80-105) POC ABG HCO3 27.5 (22-26 mml/L) POC ABG Total CO2 30 (23-27mmol/L) POC ABG O2 Sat 89 POC ABG Base Excess -2 ((-2) - (+3)mmol/L) FiO2 50 % Sodium 143 (137-145) mmol/L Potassium 4.2 (3.6-5.0) mmol/L Chloride 109.1 H (98-107) mmol/L Carbon Dioxide 22 (22-30) mmol/L Anion Gap 16 mmol/L BUN 22 H (7-17) mg/dL Creatinine 0.5 L (0.7-1.2) mg/dL Estimated GFR > 60 ml/min BUN/Creatinine Ratio 44 % Glucose 77 (65-100) mg/dL Lactic Acid (0.7-2.0) mmol/L Calcium 7.5 L (8.4-10.2) mg/dL Total Bilirubin (0.1-1.2) mg/dL AST (5-40) units/L ALT (7-56) units/L Alkaline Phosphatase (35-129) units/L Troponin T (0.00-0.029) ng/mL Total Protein (6.3-8.2) g/dL Albumin (3.9-5) g/dL Albumin/Globulin Ratio % Urine Color Yellow (Yellow) Urine Turbidity Clear (Clear) Urine pH 6.0 (5.0-7.0) Ur Specific Minco > 1.030 H (1.003-1.030) Urine Protein 100 mg/dl (Negative) mg/dL Urine Glucose (UA) Neg (Negative) mg/dL Urine Ketones 20 (Negative) mg/dL Urine Blood Sm (Negative) Urine Nitrite Neg (Negative) Urine Bilirubin Neg (Negative) Urine Urobilinogen 2.0 (<2.0) mg/dL Ur Leukocyte Esterase Neg (Negative) Urine WBC (Auto) 1.0 (0.0-6.0) /HPF Urine RBC (Auto) 2.0 (0.0-6.0) /HPF U Epithel Cells (Auto) < 1.0 (0-13.0) /HPF Urine Mucus Few /HPF - Radiology Data Her initial chest x-ray was read as cardiomegaly with pulmonary vascular congestion with no obvious infiltrate. Post intubation chest x-ray shows developing left lower lobe consolidation [facility] [address] [place] [address] Cat Scan Report Signed Patient: GARETT GARCIA MR#: [id number] : 1960 Acct:[id number] Age/Sex: 58 / F ADM Date: 05/28/18 Loc: ED Attending Dr: Ordering Physician: GLADYS WRIGHT MD Date of Service: 05/28/18 Procedure(s): CT angio chest Accession Number(s): [id number] cc: GLADYS WRIGHT MD PROCEDURE: CT ANGIO CHEST TECHNIQUE: Axial helical imaging is through the chest with sagittal and coronal reformatted images and maximum intensity projection images obtained. HISTORY: hypoxia, elevated ddimer COMPARISONS: X-ray chest also performed today. The report of that study is not available for review at the time of this dictation. FINDINGS: Visualization of detail in portions of the chest is limited by artifact created by retained hardware in the thoracic spine and by motion artifact. There is pulmonary consolidation in the entire left lower lobe with air bronchograms and volume loss consistent with atelectasis. There is opacification of a portion of the left lower lobe bronchus. There is increased density in the dependent portion of the right lung which may represent pleural thickening adjacent to postsurgical change in the posterior aspect of the right thoracic cage. Visualization of detail is limited by artifact. The tip of the endotracheal tube is below the level of the clavicles and above the level of the carlos manuel. There is no evidence of pneumothorax and no definite evidence of pleural effusion. The heart is enlarged. There is atherosclerotic vascular calcification of the coronary arteries. The thoracic aorta is normal caliber with atherosclerotic vascular calcification. No filling defects are demonstrated within the central pulmonary arteries to suggest the presence of central pulmonary artery emboli. However, segmental pulmonary artery emboli could be missed or overcalled due to significant artifact. The visualized portion of the upper abdomen is notable for an IVC filter and evidence of previous gastric surgery. The bony structures are notable for prominent kyphosis of the thoracic spine with extensive instrumentation throughout the thoracic spine. IMPRESSION: 1. Study degraded by artifact created by retained hardware in the thoracic spine and by motion artifact. 2. No evidence of central pulmonary artery emboli. However, segmental pulmonary artery emboli could be missed or overcalled due to significant artifact. 3. Complete consolidation left lower lobe with air bronchograms and volume loss consistent with atelectasis. There appears to be opacification of a portion of the left lower lobe bronchus. 4. Tip of the endotracheal tube projected in satisfactory position. 5. Cardiomegaly. 6. IVC filter. 7. Prominent kyphosis of the thoracic spine with extensive instrumentation with retained hardware. This document is electronically signed by Cari Prasad MD., May 28 2018 06:25:11 PM ET Transcribed By: ED Dictated By: CARI PRASAD MD Electronically Authenticated By: CARI PRASAD MD Signed Date/Time: 05/28/181826 DD/ 55 - Medical Decision Making Patient was tripoding and seemed to be with evidence of air hunger on arrival. Patient was hypoxic. Patient was placed on BiPAP and was given Ativan for ag itation and her O2 sat did improve. Patient is ABG did show that throughout her stay her CO2 was increasing and her pH was decreasing as well decision was made to intubate the patient. Patient was intubated with palpitations. Patient's blood pressure was hypotensive on arrival. She did receive a bolus of normal saline which did improve blood pressure in the map however the patient after the bolus finished became hypotensive again. Patient was re-bolused continue to follow the patient. Decision was made to place an IO in case the redness as needed. Patient's d-dimer was elevated and there was questionable pneumonia on x-ray. There is opacification of the left lower lobe on CT and no PE was found. Patient did receive antibiotics and blood cultures. patient to be admitted to the ICU at this time. Lab Results 05/28/18 05/28/18 05/28/18 Range/Units 13:13 13:13 13:13 WBC 9.6 (4.5-11.0) K/mm3 RBC 4.28 (3.65-5.03) M/mm3 Hgb 9.7 L (10.1-14.3) gm/dl Hct 33.1 (30.3-42.9) % MCV 77 L (79-97) fl MCH 23 L (28-32) pg MCHC 29 L (30-34) % RDW 19.2 H (13.2-15.2) % Plt Count 198 (140-440) K/mm3 Lymph % (Auto) 8.5 L (13.4-35.0) % Lyman % (Auto) 11.3 H (0.0-7.3) % Eos % (Auto) 0.0 (0.0-4.3) % Baso % (Auto) 0.4 (0.0-1.8) % Lymph # 0.8 L (1.2-5.4) K/mm3 Lyman # 1.1 H (0.0-0.8) K/mm3 Eos # 0.0 (0.0-0.4) K/mm3 Baso # 0.0 (0.0-0.1) K/mm3 Seg Neutrophils % 79.8 H (40.0-70.0) % Seg Neutrophils # 7.7 (1.8-7.7) K/mm3 D-Dimer 1062.49 H (0-234) ng/mlDDU POC ABG pH (7.35-7.45) POC ABG pCO2 (35-45) POC ABG pO2 (80-105) POC ABG HCO3 (22-26 mml/L) POC ABG Total CO2 (23-27mmol/L) POC ABG O2 Sat POC ABG Base Excess ((-2) - (+3)mmol/L) FiO2 % Sodium 145 (137-145) mmol/L Potassium 3.9 (3.6-5.0) mmol/L Chloride 104.8 (98-107) mmol/L Carbon Dioxide 26 (22-30) mmol/L Anion Gap 18 mmol/L BUN 24 H (7-17) mg/dL Creatinine 0.6 L (0.7-1.2) mg/dL Estimated GFR > 60 ml/min BUN/Creatinine Ratio 40 % Glucose 87 (65-100) mg/dL Lactic Acid (0.7-2.0) mmol/L Calcium 8.4 (8.4-10.2) mg/dL Total Bilirubin 0.30 (0.1-1.2) mg/dL AST 23 (5-40) units/L ALT 11 (7-56) units/L Alkaline Phosphatase 96 (35-129) units/L Troponin T < 0.010 (0.00-0.029) ng/mL Total Protein 6.6 (6.3-8.2) g/dL Albumin 3.5 L (3.9-5) g/dL Albumin/Globulin Ratio 1.1 % Urine Color (Yellow) Urine Turbidity (Clear) Urine pH (5.0-7.0) Ur Specific Minco (1.003-1.030) Urine Protein (Negative) mg/dL Urine Glucose (UA) (Negative) mg/dL Urine Ketones (Negative) mg/dL Urine Blood (Negative) Urine Nitrite (Negative) Urine Bilirubin (Negative) Urine Urobilinogen (<2.0) mg/dL Ur Leukocyte Esterase (Negative) Urine WBC (Auto) (0.0-6.0) /HPF Urine RBC (Auto) (0.0-6.0) /HPF U Epithel Cells (Auto) (0-13.0) /HPF Urine Mucus /HPF 05/28/18 05/28/18 05/28/18 Range/Units 13:13 13:22 14:50 WBC (4.5-11.0) K/mm3 RBC (3.65-5.03) M/mm3 Hgb (10.1-14.3) gm/dl Hct (30.3-42.9) % MCV (79-97) fl MCH (28-32) pg MCHC (30-34) % RDW (13.2-15.2) % Plt Count (140-440) K/mm3 Lymph % (Auto) (13.4-35.0) % Lyman % (Auto) (0.0-7.3) % Eos % (Auto) (0.0-4.3) % Baso % (Auto) (0.0-1.8) % Lymph # (1.2-5.4) K/mm3 Lyman # (0.0-0.8) K/mm3 Eos # (0.0-0.4) K/mm3 Baso # (0.0-0.1) K/mm3 Seg Neutrophils % (40.0-70.0) % Seg Neutrophils # (1.8-7.7) K/mm3 D-Dimer (0-234) ng/mlDDU POC ABG pH 7.249 L (7.35-7.45) POC ABG pCO2 68.9 H (35-45) POC ABG pO2 82 (80-105) POC ABG HCO3 30.1 (22-26 mml/L) POC ABG Total CO2 32 (23-27mmol/L) POC ABG O2 Sat 93 POC ABG Base Excess 3 ((-2) - (+3)mmol/L) FiO2 50 % Sodium (137-145) mmol/L Potassium (3.6-5.0) mmol/L Chloride (98-107) mmol/L Carbon Dioxide (22-30) mmol/L Anion Gap mmol/L BUN (7-17) mg/dL Creatinine (0.7-1.2) mg/dL Estimated GFR ml/min BUN/Creatinine Ratio % Glucose (65-100) mg/dL Lactic Acid 1.50 0.90 (0.7-2.0) mmol/L Calcium (8.4-10.2) mg/dL Total Bilirubin (0.1-1.2) mg/dL AST (5-40) units/L ALT (7-56) units/L Alkaline Phosphatase (35-129) units/L Troponin T (0.00-0.029) ng/mL Total Protein (6.3-8.2) g/dL Albumin (3.9-5) g/dL Albumin/Globulin Ratio % Urine Color (Yellow) Urine Turbidity (Clear) Urine pH (5.0-7.0) Ur Specific Minco (1.003-1.030) Urine Protein (Negative) mg/dL Urine Glucose (UA) (Negative) mg/dL Urine Ketones (Negative) mg/dL Urine Blood (Negative) Urine Nitrite (Negative) Urine Bilirubin (Negative) Urine Urobilinogen (<2.0) mg/dL Ur Leukocyte Esterase (Negative) Urine WBC (Auto) (0.0-6.0) /HPF Urine RBC (Auto) (0.0-6.0) /HPF U Epithel Cells (Auto) (0-13.0) /HPF Urine Mucus /HPF 05/28/18 05/28/18 05/28/18 Range/Units 14:50 16:05 17:57 WBC (4.5-11.0) K/mm3 RBC (3.65-5.03) M/mm3 Hgb (10.1-14.3) gm/dl Hct (30.3-42.9) % MCV (79-97) fl MCH (28-32) pg MCHC (30-34) % RDW (13.2-15.2) % Plt Count (140-440) K/mm3 Lymph % (Auto) (13.4-35.0) % Lyman % (Auto) (0.0-7.3) % Eos % (Auto) (0.0-4.3) % Baso % (Auto) (0.0-1.8) % Lymph # (1.2-5.4) K/mm3 Lyman # (0.0-0.8) K/mm3 Eos # (0.0-0.4) K/mm3 Baso # (0.0-0.1) K/mm3 Seg Neutrophils % (40.0-70.0) % Seg Neutrophils # (1.8-7.7) K/mm3 D-Dimer (0-234) ng/mlDDU POC ABG pH 7.126 L (7.35-7.45) POC ABG pCO2 (35-45) POC ABG pO2 77 L (80-105) POC ABG HCO3 27.5 (22-26 mml/L) POC ABG Total CO2 30 (23-27mmol/L) POC ABG O2 Sat 89 POC ABG Base Excess -2 ((-2) - (+3)mmol/L) FiO2 50 % Sodium 143 (137-145) mmol/L Potassium 4.2 (3.6-5.0) mmol/L Chloride 109.1 H (98-107) mmol/L Carbon Dioxide 22 (22-30) mmol/L Anion Gap 16 mmol/L BUN 22 H (7-17) mg/dL Creatinine 0.5 L (0.7-1.2) mg/dL Estimated GFR > 60 ml/min BUN/Creatinine Ratio 44 % Glucose 77 (65-100) mg/dL Lactic Acid (0.7-2.0) mmol/L Calcium 7.5 L (8.4-10.2) mg/dL Total Bilirubin (0.1-1.2) mg/dL AST (5-40) units/L ALT (7-56) units/L Alkaline Phosphatase (35-129) units/L Troponin T (0.00-0.029) ng/mL Total Protein (6.3-8.2) g/dL Albumin (3.9-5) g/dL Albumin/Globulin Ratio % Urine Color Yellow (Yellow) Urine Turbidity Clear (Clear) Urine pH 6.0 (5.0-7.0) Ur Specific Minco > 1.030 H (1.003-1.030) Urine Protein 100 mg/dl (Negative) mg/dL Urine Glucose (UA) Neg (Negative) mg/dL Urine Ketones 20 (Negative) mg/dL Urine Blood Sm (Negative) Urine Nitrite Neg (Negative) Urine Bilirubin Neg (Negative) Urine Urobilinogen 2.0 (<2.0) mg/dL Ur Leukocyte Esterase Neg (Negative) Urine WBC (Auto) 1.0 (0.0-6.0) /HPF Urine RBC (Auto) 2.0 (0.0-6.0) /HPF U Epithel Cells (Auto) < 1.0 (0-13.0) /HPF Urine Mucus Few /HPF Vital Signs 05/28/18 05/28/18 05/28/18 12:32 12:45 12:51 Temperature 98.2 F Pulse Rate 70 101 H Respiratory 29 H 24 30 H Rate Blood Pressure 89/47 Blood Pressure 131/72 [Left] O2 Sat by Pulse 70 L 94 46 L Oximetry 05/28/18 05/28/18 05/28/18 13:00 13:15 13:30 Temperature Pulse Rate 79 77 73 Respiratory 19 19 20 Rate Blood Pressure 89/40 86/30 82/35 Blood Pressure [Left] O2 Sat by Pulse 94 95 90 Oximetry 05/28/18 05/28/18 05/28/18 13:45 14:00 14:15 Temperature Pulse Rate 68 70 70 Respiratory 21 20 18 Rate Blood Pressure 86/42 80/41 89/47 Blood Pressure [Left] O2 Sat by Pulse 92 Oximetry 05/28/18 05/28/18 05/28/18 14:30 14:45 15:00 Temperature Pulse Rate 70 70 73 Respiratory 18 17 17 Rate Blood Pressure 94/50 99/54 111/56 Blood Pressure [Left] O2 Sat by Pulse 93 90 92 Oximetry 05/28/18 05/28/18 05/28/18 15:15 15:31 15:45 Temperature Pulse Rate 70 76 Respiratory 15 15 19 Rate Blood Pressure 111/56 111/56 111/56 Blood Pressure [Left] O2 Sat by Pulse 94 83 L 77 L Oximetry 05/28/18 05/28/18 05/28/18 16:00 16:15 17:31 Temperature Pulse Rate 85 77 75 Respiratory 20 24 Rate Blood Pressure 109/50 111/54 81/38 Blood Pressure [Left] O2 Sat by Pulse 96 95 Oximetry Critical Care Time: Yes (45) Critical care attestation.: If time is entered above; I have spent that time in minutes in the direct care of this critically ill patient, excluding procedure time. ED Disposition Clinical Impression: Respiratory distress, Respiratory acidosis Pneumonia Qualifiers: Pneumonia type: due to unspecified organism Laterality: left Lung location: lower lobe of lung Qualified Code(s): J18.1 - Lobar pneumonia, unspecified organism COPD (chronic obstructive pulmonary disease) Qualifiers: COPD type: unspecified COPD Qualified Code(s): J44.9 - Chronic obstructive pulmonary disease, unspecified Disposition: DC-01 TO HOME OR SELFCARE Is pt being admited?: Yes Does the pt Need Aspirin: No Condition: Stable Time of Disposition: 18:41
[2018-05-28 18:17] LABS: Bilirubin,Urine NEG (Negative); Blood,Urine SM (Negative); Color,Urine Yellow (Yellow); Mucus,Urine FEW /HPF
--- NOTE | 2018-05-28 18:27 | Cat Scan Report ---
PROCEDURE: CT ANGIO CHEST TECHNIQUE: Axial helical imaging is through the chest with sagittal and coronal reformatted images a nd maximum intensity projection images obtained. HISTORY: hypoxia, elevated ddimer COMPARISONS: X-ray chest also performed today. The report of that study is not available for review a t the time of this dictation. FINDINGS: Visualization of detail in portions of the chest is limited by artifact created by retained hardware in the thoracic spine and by motion artifact. There is pulmonary consolidation in the entire left lower lobe with air bronchograms and volume loss consistent with atelectasis. There is opacification of a portion of the left lower lobe bronchus. There is increased density in the dependent portion of the right lung which may represent pleural thi ckening adjacent to postsurgical change in the posterior aspect of the right thoracic cage. Visualiza tion of detail is limited by artifact. The tip of the endotracheal tube is below the level of the clavicles and above the level of the kristi a. There is no evidence of pneumothorax and no definite evidence of pleural effusion. The heart is enlarged. There is atherosclerotic vascular calcification of the coronary arteries. The thoracic aorta is normal caliber with atherosclerotic vascular calcification. No filling defects are demonstrated within the central pulmonary arteries to suggest the presence of central pulmonary artery emboli. However, segmental pulmonary artery emboli could be missed or overca lled due to significant artifact. The visualized portion of the upper abdomen is notable for an IVC filter and evidence of previous gas tric surgery. The bony structures are notable for prominent kyphosis of the thoracic spine with extensive instrumen tation throughout the thoracic spine. IMPRESSION: 1. Study degraded by artifact created by retained hardware in the thoracic spine and by motion artifa ct. 2. No evidence of central pulmonary artery emboli. However, segmental pulmonary artery emboli could b e missed or overcalled due to significant artifact. 3. Complete consolidation left lower lobe with air bronchograms and volume loss consistent with atele ctasis. There appears to be opacification of a portion of the left lower lobe bronchus. 4. Tip of the endotracheal tube projected in satisfactory position. 5. Cardiomegaly. 6. IVC filter. 7. Prominent kyphosis of the thoracic spine with extensive instrumentation with retained hardware. This document is electronically signed by Cari Seo MD., May 28 2018 06:25:11 PM ET
--- NOTE | 2018-05-28 18:30 | XRay Report ---
PROCEDURE: XR CHEST 1V AP TECHNIQUE: Chest radiograph single view. HISTORY: post intubation COMPARISONS: None . FINDINGS: Heart: Prominent cardiac silhouette. Mediastinum/Vessels: Prominent central vessels. Lungs/Pleural space: Left lung base airspace consolidation. Bony thorax: No acute osseous abnormality. Life support devices: The endotracheal tube tip is obscured by hardware in the thoracic spine, but aurora clifford projects approximately 4 cm superior to the carlos manuel. IMPRESSION: Prominent cardiac silhouette. Left lung base airspace consolidation This document is electronically signed by Katharina Reich MD., May 28 2018 06:28:19 PM ET
[2018-05-28] MEDS ORDERED: LEVOPHED DRIP 4 MG/NS 250 ML 4 MG/250 ML BAG IV ONE (18:53)
[2018-05-28] MEDS: LEVOPHED DRIP 4 MG/NS 250 ML 4 MG/250 ML BAG IV SCH (19:03)
[2018-05-28] MEDS ORDERED: SUBLIMAZE IV PRN (20:26)
[2018-05-28] MEDS ORDERED: NACL 0.9% 500 ML 500 ML ONE (20:32)
[2018-05-28] MEDS: fentaNYL DRIP Premix 2,000 MCG/100 ML BAG IV SCH (20:58)
[2018-05-28] MEDS ORDERED: AMIDATE IV ONE (22:31)
[2018-05-28] MEDS ORDERED: QUELICIN ONE (22:31)
--- NOTE | 2018-05-28 22:40 | Event Note ---
Date: 05/28/18 See H/p in reports Acute resp failure with HJypercapnia
[2018-05-28] MEDS ORDERED: XYLOCAINE 1% MPF 5 mL INFILTRATI ONE (22:43)
[2018-05-28] MEDS ORDERED: PROVENTIL IH PRN (22:43)
[2018-05-28] MEDS ORDERED: SODIUM BICARBONATE FEEDTUBE PRN (22:45)
[2018-05-28] MEDS ORDERED: SIMPLE SYRUP FEEDTUBE PRN ×2 (22:45)
[2018-05-28] MEDS ORDERED: PANCREAZE DR 10,500 UNIT FEEDTUBE PRN (22:45)
[2018-05-28] MEDS: PULMICORT IH SCH (22:58)
--- NOTE | 2018-05-28 23:12 | XRay Report ---
PROCEDURE: XR ABDOMEN 1V AP TECHNIQUE: Abdominal radiograph, single view. HISTORY: NG Tube Placement COMPARISONS: None . FINDINGS: Bowel gas pattern: Nonobstructive . Masses or calcifications: None . Bony structures: And infarction in place. Other: Nasogastric tube is terminating in the stomach. An IVC filter is noted. Residual contrast is noted in the right collecting system. There is mild deg ree left pleural effusion IMPRESSION: Nasogastric tube is terminating in the stomach. Mild degree left pleural effusion This document is electronically signed by Leeroy Romero MD., May 28 2018 11:10:28 PM ET
[2018-05-28] MEDS ORDERED: SOLU-Medrol ONE (23:25)
[2018-05-28] MEDS ORDERED: BUSPAR ONE (23:25)
[2018-05-28] MEDS ORDERED: LIORESAL ONE (23:26)
[2018-05-28] MEDS: BUSPAR PO SCH (23:50)
[2018-05-28] MEDS: SOLU-Medrol IV SCH (23:51)
[2018-05-28] MEDS: LIORESAL PO SCH (23:51)
[2018-05-29] MEDS ORDERED: ATIVAN IV ONE (02:20)
[2018-05-29] MEDS ORDERED: fentaNYL DRIP Premix 2,000 MCG/100 ML BAG IV ONE ×3 (02:21→14:52)
[2018-05-29] MEDS ORDERED: LEVOPHED DRIP 4 MG/NS 250 ML 4 MG/250 ML BAG IV ONE ×4 (02:22→17:42)
[2018-05-29] MEDS ORDERED: ATIVAN ONE (02:26)
[2018-05-29] MEDS: LEVOPHED DRIP 4 MG/NS 250 ML 4 MG/250 ML BAG IV SCH ×3 (03:30→23:26)
[2018-05-29] MEDS: fentaNYL DRIP Premix 2,000 MCG/100 ML BAG IV SCH ×2 (04:13→14:54)
[2018-05-29] MEDS: SOLU-Medrol IV SCH ×3 (06:30→23:08)
[2018-05-29] MEDS ORDERED: SOLU-Medrol ONE ×2 (06:41→15:43)
--- NOTE | 2018-05-29 07:01 | History and Physical Report ---
CHIEF COMPLAINT: Increasing shortness of breath for the last 4 days. HISTORY OF PRESENT ILLNESS: A 58-year-old female with history of end-stage lung disease and COPD, on 2 liters of oxygen at home, brought into the hospital for altered mental status. The patient has not been using her oxygen and has been hallucinating and talking to family members, who are . The patient is also having increasing wheezing and shortness of breath. No fever or chills. In the Emergency Room, the patient was lethargic, Arousable. No recent travel. The patient has been keeps taking of her oxygen. The patient is in severe respiratory distress. Because of persistent respiratory distress, the patient was intubated in the Emergency Room. PAST MEDICAL HISTORY: Significant for: 1. End-stage lung disease and COPD. 2. Gastroesophageal reflux disease. 3. Hypertension. 4. Generalized anxiety disorder. PAST SURGICAL HISTORY: Coronary stents. SOCIAL HISTORY: Former smoker. FAMILY HISTORY: Hypertension. CURRENT MEDICATIONS: Protonix 40 mg daily, baclofen 10 mg twice a day, metoprolol 100 mg twice a day, BuSpar 5 mg twice a day and venlafaxine 100 mg t.i.d. daily. REVIEW OF SYSTEMS: Significant for increasing shortness of breath and wheezing and altered sensorium. Hallucinating and talking to people. The patient intubated in the Emergency Room. PHYSICAL EXAMINATION: GENERAL: Young elderly female, cooperative during examination. VITAL SIGNS: Blood pressure is 131/72, temperature is 98.2, pulse is 70-101, respiratory rate is 29. HEENT: Unremarkable. Pupils equal and reactive. NECK: Supple, no lymphadenopathy, no thyromegaly. CHEST AND LUNGS: Bilateral rhonchi. Diminished air entry. CARDIOVASCULAR: S1, S2 heard. No gallop, no murmur, no rub. Apical impulse in left fifth intercostal space and midclavicular line. ABDOMEN: Soft and benign. No hepatosplenomegaly. No guarding, no rigidity. Hernial orifices are normal. EXTREMITIES: Good pedal pulses. No pedal edema. CENTRAL NERVOUS SYSTEM: Decreased sensorium Confused. Lethargic. SKIN: Normal. LABORATORY DATA: Significant for white count of 9600, H and H is 9.7 and 33, platelet count is 198,000. pH is 7.2949, pCO2 is 68.9 and pO2 is 82, bicarbonate is 30. Sodium is 143, potassium is 4.2, BUN and creatinine is 22 and 0.5, calcium is 7.5, specific gravity is more than 1.030. Chest x-ray shows mild cardiopulmonary and pulmonary venous congestion. Chest CTA shows no evidence of pulmonary embolism. IVC filter issue. A prominent kyphosis of the thoracic spine with extensive instrumentation with retained hardware. Consolidation on the left lower lobe with air bronchograms and volume loss consistent with atelectasis. Opacification of part of the left lower lobe bronchus. ASSESSMENT AND PLAN: 1. Acute respiratory failure with hypercapnia. The patient initiated on DuoNebs around the clock and albuterol p.r.n., IV Solu-Medrol 125 q. 8 hours and IV ceftriaxone and Zithromax. Ventilator management to be continued. Acetylene Torch Solderer consult requested. 2.LL Pneumonia IV Ceftriaxone and Zithromax 3. Chronic obstructive pulmonary disease exacerbation. The patient needs to be on oxygen all the time. The patient to be counseled once extubated. 4. Hypertension. Continue antihypertensives in the form of lisinopril and metoprolol. 5. Generalized anxiety disorder. Continue BuSpar. 6. Gastroesophageal reflux disease. Continue Protonix 40 mg daily. 7. Depression. Continue Effexor 100 mg once a day. 8. Deep venous thrombosis prophylaxis, Lovenox 40 mg subcutaneous daily. JOB# [id number] SALINASM/NTS KOJOD
--- NOTE | 2018-05-29 07:55 | Progress Note ---
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 According to chart, pt has not been using her O2 and started hallucinating. She was intubated in the ED. She was also hypotensive in the ED and started on Vasopressor/Levophed * CTA chest IMPRESSION: 1. Study degraded by artifact created by retained hardware in the thoracic spine and by motion artifact. 2. No evidence of central pulmonary artery emboli. However, segmental pulmonary artery emboli could be missed or overcalled due to significant artifact. 3. Complete consolidation left lower lobe with air bronchograms and volume loss consistent with atelectasis. There appears to be opacification of a portion of the left lower lobe bronchus. 4. Tip of the endotracheal tube projected in satisfactory position. 5. Cardiomegaly. 6. IVC filter. 7. Prominent kyphosis of the thoracic spine with extensive instrumentation with retained hardware. * Abdominal 1 view XRAY IMPRESSION: Nasogastric tube is terminating in the stomach. Mild degree left pleural effusion * pCXR FINDINGS: Heart: Prominent cardiac silhouette. Mediastinum/Vessels: Prominent central vessels. Lungs/Pleural space: Left lung base airspace consolidation. Bony thorax: No acute osseous abnormality. Life support devices: The endotracheal tube tip is obscured by hardware in the thoracic spine, but likely projects approximately 4 cm superior to the carlos manuel. IMPRESSION: Prominent cardiac silhouette. Left lung base airspace consolidatio n -AMS with Acute encephalopathy, prior records show a long history of similar presentations and PCP toxicity: I ordered UDS -Acute on chronic combined respiratory failure s/p ETT MV: daily weaning attempt, consulted Transition Teacher/Engineering Operator -Severe AE COPD: treat with iv steriods, abx, nebs around the clock -Hypotension due to circulatory shock possible septic shock from LLL pneumonia: on Vasopressor -Septic Shock suspected LLL pneumonia: treat with ivf, abx, vasopressor, consult ID I ordered for picc line, remove IO iv line from right sorenson CCT 33 minutes History Interval history: Patient was seen and examined. Follow-up on current diagnosis of respiratory failure, intubated and sedated. Imaging, nursing note, chart, labs and old chart reviewed. Hospitalist Physical - Physical exam Narrative exam: Gen: critical ill, intubated HEENT: NCAT, pupils reactive, OP ETT in place Neck: supple, no adenopathy, no thyromegaly, no JVD CVS/Heart: regular tachycardia, normal S1S2, pulses present bilaterally Chest/Lungs: diminished bs bilateral Symmetrical chest expansion, good air entry bilaterally GI/Abdomen: soft, NTND, good bowel sounds, no guarding or rebound /Bladder: no suprapubic tenderness, no CVA or paraspinal tenderness Extermity/Skin: no c/c/e, no obvious rash MSK: sedated Neuro: sedated Psych: sedated - Constitutional Vitals: Temp Pulse Resp BP Pulse Ox 100.0 F H 97 H 30 H 116/63 95 05/28/18 23:00 05/29/18 07:45 05/29/18 07:45 05/29/18 07:45 05/29/18 07:45 Results - Labs CBC & Chem 7: 05/28/18 13:13 05/28/18 14:50 Labs: Laboratory Last Values WBC 9.6 K/mm3 (4.5-11.0) 05/28/18 13:13 RBC 4.28 M/mm3 (3.65-5.03) 05/28/18 13:13 Hgb 9.7 gm/dl (10.1-14.3) L 05/28/18 13:13 Hct 33.1 % (30.3-42.9) 05/28/18 13:13 MCV 77 fl (79-97) L 05/28/18 13:13 MCH 23 pg (28-32) L 05/28/18 13:13 MCHC 29 % (30-34) L 05/28/18 13:13 RDW 19.2 % (13.2-15.2) H 05/28/18 13:13 Plt Count 198 K/mm3 (140-440) 05/28/18 13:13 Lymph % (Auto) 8.5 % (13.4-35.0) L 05/28/18 13:13 Larue % (Auto) 11.3 % (0.0-7.3) H 05/28/18 13:13 Eos % (Auto) 0.0 % (0.0-4.3) 05/28/18 13:13 Baso % (Auto) 0.4 % (0.0-1.8) 05/28/18 13:13 Lymph # 0.8 K/mm3 (1.2-5.4) L 05/28/18 13:13 Larue # 1.1 K/mm3 (0.0-0.8) H 05/28/18 13:13 Eos # 0.0 K/mm3 (0.0-0.4) 05/28/18 13:13 Baso # 0.0 K/mm3 (0.0-0.1) 05/28/18 13:13 Seg Neutrophils % 79.8 % (40.0-70.0) H 05/28/18 13:13 Seg Neutrophils # 7.7 K/mm3 (1.8-7.7) 05/28/18 13:13 D-Dimer 1062.49 ng/mlDDU (0-234) H 05/28/18 13:13 POC ABG pH 7.312 (7.35-7.45) L 05/28/18 22:47 POC ABG pCO2 57.5 (35-45) H 05/28/18 22:47 POC ABG pO2 73 (80-105) L 05/28/18 22:47 POC ABG HCO3 29.1 (22-26 mml/L) 05/28/18 22:47 POC ABG Total CO2 31 (23-27mmol/L) 05/28/18 22:47 POC ABG O2 Sat 92 05/28/18 22:47 POC ABG Base Excess 3 ((-2) - (+3)mmol/L) 05/28/18 22:47 FiO2 100 % 05/28/18 22:47 Sodium 143 mmol/L (137-145) 05/28/18 14:50 Potassium 4.2 mmol/L (3.6-5.0) 05/28/18 14:50 Chloride 109.1 mmol/L (98-107) H 05/28/18 14:50 Carbon Dioxide 22 mmol/L (22-30) 05/28/18 14:50 Anion Gap 16 mmol/L 05/28/18 14:50 BUN 22 mg/dL (7-17) H 05/28/18 14:50 Creatinine 0.5 mg/dL (0.7-1.2) L 05/28/18 14:50 Estimated GFR > 60 ml/min 05/28/18 14:50 BUN/Creatinine Ratio 44 % 05/28/18 14:50 Glucose 77 mg/dL (65-100) 05/28/18 14:50 Lactic Acid 0.90 mmol/L (0.7-2.0) 05/28/18 14:50 Calcium 7.5 mg/dL (8.4-10.2) L 05/28/18 14:50 Total Bilirubin 0.30 mg/dL (0.1-1.2) 05/28/18 13:13 AST 23 units/L (5-40) 05/28/18 13:13 ALT 11 units/L (7-56) 05/28/18 13:13 Alkaline Phosphatase 96 units/L (35-129) 05/28/18 13:13 Troponin T < 0.010 ng/mL (0.00-0.029) 05/28/18 13:13 Total Protein 6.6 g/dL (6.3-8.2) 05/28/18 13:13 Albumin 3.5 g/dL (3.9-5) L 05/28/18 13:13 Albumin/Globulin Ratio 1.1 % 05/28/18 13:13 Urine Color Yellow (Yellow) 05/28/18 17:57 Urine Turbidity Clear (Clear) 05/28/18 17:57 Urine pH 6.0 (5.0-7.0) 05/28/18 17:57 Ur Specific [place] > 1.030 (1.003-1.030) H 05/28/18 17:57 Urine Protein 100 mg/dl mg/dL (Negative) 05/28/18 17:57 Urine Glucose (UA) Neg mg/dL (Negative) 05/28/18 17:57 Urine Ketones 20 mg/dL (Negative) 05/28/18 17:57 Urine Blood Sm (Negative) 05/28/18 17:57 Urine Nitrite Neg (Negative) 05/28/18 17:57 Urine Bilirubin Neg (Negative) 05/28/18 17:57 Urine Urobilinogen 2.0 mg/dL (<2.0) 05/28/18 17:57 Ur Leukocyte Esterase Neg (Negative) 05/28/18 17:57 Urine WBC (Auto) 1.0 /HPF (0.0-6.0) 05/28/18 17:57 Urine RBC (Auto) 2.0 /HPF (0.0-6.0) 05/28/18 17:57 U Epithel Cells (Auto) < 1.0 /HPF (0-13.0) 05/28/18 17:57 Urine Mucus Few /HPF 05/28/18 17:57 Active Medications - Current Medications Current Medications: Generic Name Dose Route Start Last Admin Trade Name Freq PRN Reason Stop Dose Admin Albuterol 2.5 mg 05/28/18 22:43 Proventil IH Q4HRT PRN Shortness Of Breath Albuterol/Ipratropium 1 ampul 05/29/18 08:00 Duoneb *Not For Prn Use* IH QIDRT DOMINICK Amlodipine Besylate 10 mg 05/29/18 10:00 Norvasc PO DAILY [facility] Lipase/Protease/Amylase 1 each 05/28/18 22:[address] 10,500 Unit FEEDTUBE PRN PRN For Clogged Feeding Tube Baclofen 10 mg 05/28/18 23:00 05/28/18 23:51 Lioresal PO 10 mg BID [facility] Administration Budesonide 0.5 mg 05/28/18 22:45 05/28/18 22:58 Pulmicort IH 0.5 mg Q12HRT DOMINICK Administration Buspirone HCl 5 mg 05/28/18 23:00 05/28/18 23:50 Buspar PO 5 mg BID [facility] Administration Enoxaparin Sodium 40 mg 05/29/18 22:00 Lovenox SUB-Q QDAY@2200 DOMINICK Fentanyl 50 mcg 05/28/18 20:26 Sublimaze IV Q10MIN PRN ANALGESIA Norepinephrine 4 mg in 250 mls @ 7.5 mls/hr 05/28/18 19:00 05/29/18 06:30 Levophed Drip 4 Mg/Ns 250 Ml IV 20 mcg/min TITR DOMINICK 75 mls/hr Titration Protocol 2 MCG/MIN Fentanyl Citrate 2,000 mcg in 100 mls @ 3.969 mls/hr 05/28/18 21:00 05/29/18 06:28 Fentanyl Drip Premix IV 4 mcg/kg/hr TITR DOMINICK 15.876 mls/hr Titration Protocol 1 MCG/KG/HR Azithromycin 500 mg/ Sodium 250 mls @ 250 mls/hr 05/29/18 10:00 Chloride IV Q24HR [facility] Sodium Chloride 1,000 mls @ 100 mls/hr 05/28/18 23:00 Nacl 0.9% 1000 Ml IV DIRECT [facility] Ceftriaxone Sodium 2 gm in 100 mls @ 200 mls/hr 05/29/18 10:00 Rocephin/Ns 2 Gm/100 Ml IV Q24HR [facility] Lisinopril 10 mg 05/29/18 10:00 Zestril PO QDAY [facility] Methylprednisolone Sodium Succinate 125 mg 05/28/18 23:00 05/29/18 06:30 Solu-Medrol IV 125 mg Q8HR [facility] Administration Metoprolol Succinate 100 mg 05/29/18 10:00 Toprol Xl PO BID [facility] Pantoprazole Sodium 40 mg 05/29/18 10:00 Protonix PO QDAY [facility] Simple Syrup 15 ml 05/28/18 22:45 Simple Syrup FEEDTUBE PRN PRN Hypoglycemia Simple Syrup 30 ml 05/28/18 22:45 Simple Syrup FEEDTUBE PRN PRN Hypoglycemia Sodium Bicarbonate 325 mg 05/28/18 22:45 Sodium Bicarbonate FEEDTUBE PRN PRN For Clogged Feeding Tube Sodium Chloride 10 ml 05/29/18 10:00 Sodium Chloride Flush Syringe 10 Ml IV BID DOMINICK Sodium Chloride 10 ml 05/28/18 22:45 Sodium Chloride Flush Syringe 10 Ml IV PRN PRN LINE FLUSH
[2018-05-29] MEDS: PULMICORT IH SCH ×2 (08:11→19:49)
[2018-05-29] MEDS: DUONEB *Not for PRN Use IH SCH ×4 (08:11→19:49)
[2018-05-29] MEDS ORDERED: DUONEB *Not for PRN Use IH ONE ×3 (08:12→16:17)
[2018-05-29] MEDS ORDERED: PULMICORT IH ONE (08:12)
[2018-05-29] MEDS ORDERED: PANCREAZE DR 10,500 UNIT FEEDTUBE PRN (09:39)
[2018-05-29] MEDS ORDERED: SODIUM BICARBONATE FEEDTUBE PRN (09:39)
[2018-05-29] MEDS ORDERED: SIMPLE SYRUP FEEDTUBE PRN ×2 (09:39)
[2018-05-29] MEDS ORDERED: PROTONIX PO SCH (10:00)
[2018-05-29] MEDS ORDERED: ZITHROMAX 500 MG in NACL 0.9% 250ML 250 ML IV SCH (10:00)
[2018-05-29] MEDS ORDERED: ROCEPHIN IM SCH (10:00)
[2018-05-29] MEDS ORDERED: ROCEPHIN/NS 2 GM/100 ML 2 GM/100 ML BAG IV SCH (10:00)
[2018-05-29] MEDS: SODIUM CHLORIDE FLUSH SYRINGE 10 ML IV SCH ×2 (10:10→23:08)
--- NOTE | 2018-05-29 11:03 | Consultation ---
History of Present Illness - Reason for Consult Consult date: 05/29/18 LLL pneumonia, septic shock Requesting physician: MAXIMINO MCDANIEL - History of Present Illness The patient is a 58-year-old female with COPD with chronic respiratory failure on home oxygen was brought to the emergency room yesterday with shortness of breath and confusion. Apparently, the patient had not been wearing her oxygen for several days prior to admission and was also hallucinating. The patient was noted to be lethargic and due to persistent respiratory distress, she was intubated. She also was requiring pressors. She was started empirically on IV antibiotics. Infectious diseases was consulted for additional recommendations. CTA chest was suggestive of left lower lobe pneumonia. Currently, patient is in the emergency room awaiting a bed in ICU. She remains on the ventilator, unable to provide history. Review of Systems: Unable to obtain, patient sedated, intubated Medications and Allergies Allergies Allergy/AdvReac Type Severity Reaction Status Date / Time hydromorphone [From Dilaudid] Allergy Unknown Verified 03/01/18 21:50 phenobarbital Allergy Unknown Verified 10/28/14 09:33 Home Medications Medication Instructions Recorded Confirmed Last Taken Type Venlafaxine HCl [Venlafaxine] 100 mg PO TIDWM #30 tablet 07/16/16 03/02/18 1 Day Ago Rx ~08/13/16 Pantoprazole [Protonix TAB] 40 mg PO QDAY 08/08/16 03/02/18 1 Day Ago History ~08/13/16 amLODIPine [Norvasc] 10 mg PO DAILY 08/08/16 03/02/18 1 Day Ago History ~08/13/16 Baclofen [Lioresal] 10 mg PO BID 03/02/18 03/02/18 Unknown History Lisinopril [Zestril TAB] 10 mg PO QDAY 03/02/18 03/02/18 Unknown History Metoprolol Xl [Metoprolol 100 mg PO BID 03/02/18 03/02/18 Unknown History SUCCINATE ER TAB] Nitroglycerin [Nitrostat] 0.4 mg SL Q5M PRN 03/02/18 03/02/18 Unknown History busPIRone [Buspar] 5 mg PO BID 03/02/18 03/02/18 Unknown History diphenhydrAMINE [Benadryl CAP] 25 mg PO QHS PRN 03/02/18 03/02/18 Unknown History Active Meds: Active Medications Albuterol (Proventil) 2.5 mg IH Q4HRT PRN PRN Reason: Shortness Of Breath Albuterol/Ipratropium (Duoneb *Not For Prn Use*) 1 ampul IH QIDRT [facility] Last Admin: 05/29/18 08:11 Dose: 1 ampul Documented by: Amlodipine Besylate (Norvasc) 10 mg PO DAILY [facility] Lipase/Protease/Amylase (Pancreaze Dr 10,500 Unit) 1 each FEEDTUBE PRN PRN PRN Reason: For Clogged Feeding Tube Baclofen (Lioresal) 10 mg PO BID [facility] Last Admin: 05/28/18 23:51 Dose: 10 mg Documented by: Budesonide (Pulmicort) 0.5 mg IH Q12HRT [facility] Last Admin: 05/29/18 08:11 Dose: 0.5 mg Documented by: Buspirone HCl (Buspar) 5 mg PO BID [facility] Last Admin: 05/28/18 23:50 Dose: 5 mg Documented by: Enoxaparin Sodium (Lovenox) 40 mg SUB-Q QDAY@2200 [facility] Fentanyl (Sublimaze) 50 mcg IV Q10MIN PRN PRN Reason: ANALGESIA Norepinephrine (Levophed Drip 4 Mg/Ns 250 Ml) 4 mg in 250 mls @ 7.5 mls/hr IV TITR [facility]; Protocol Last Titration: 05/29/18 06:30 Dose: 20 mcg/min, 75 mls/hr Documented by: Fentanyl Citrate (Fentanyl Drip Premix) 2,000 mcg in 100 mls @ 3.969 mls/hr IV TITR [facility]; Protocol Last Titration: 05/29/18 06:28 Dose: 4 mcg/kg/hr, 15.876 mls/hr Documented by: Azithromycin 500 mg/ Sodium (Chloride) 250 mls @ 250 mls/hr IV Q24HR [facility] Sodium Chloride (Nacl 0.9% 1000 Ml) 1,000 mls @ 100 mls/hr IV DIRECT [facility] Ceftriaxone Sodium (Rocephin/Ns 2 Gm/100 Ml) 2 gm in 100 mls @ 200 mls/hr IV Q24HR [facility] Lisinopril (Zestril) 10 mg PO QDAY [facility] Methylprednisolone Sodium Succinate (Solu-Medrol) 125 mg IV Q8HR [facility] Last Admin: 05/29/18 06:30 Dose: 125 mg Documented by: Metoprolol Succinate (Toprol Xl) 100 mg PO BID [facility] Pantoprazole Sodium (Protonix) 40 mg PO QDAY [facility] Simple Syrup (Simple Syrup) 15 ml FEEDTUBE PRN PRN PRN Reason: Hypoglycemia Simple Syrup (Simple Syrup) 30 ml FEEDTUBE PRN PRN PRN Reason: Hypoglycemia Sodium Bicarbonate (Sodium Bicarbonate) 325 mg FEEDTUBE PRN PRN PRN Reason: For Clogged Feeding Tube Sodium Chloride (Sodium Chloride Flush Syringe 10 Ml) 10 ml IV BID [facility] Sodium Chloride (Sodium Chloride Flush Syringe 10 Ml) 10 ml IV PRN PRN PRN Reason: LINE FLUSH Physical Examination - Physical Exam Narrative exam: Physical Exam: Constitutional: sedated, intubated Head, Ears, Nose: Normocephalic, atraumatic. External ears, nose normal Eyes: Conjunctivae/corneas clear. No icterus. No ptosis. Neck: Supple, no meningeal signs Oral: intubated Cardiovascular: S1, S2 normal. Respiratory: Good air entry, clear to auscultation bilaterally GI: Soft, non-tender; bowel sounds normal. No peritoneal signs Musculoskeletal: No pedal edema, no cyanosis. I/O line in tibia + Skin: No rash or abscess Hem/Lymphatic: No palpable cervical or supraclavicular nodes. No lymphangitis Psych: no agitation Neurological: sedated, intubated, on vent - Constitutional Vitals: Vital Signs Temp Pulse Resp BP Pulse Ox 100.0 F H 100 H 20 116/63 95 05/28/18 23:00 05/29/18 08:30 05/29/18 08:30 05/29/18 07:45 05/29/18 07:45 Temperature -Last 24 Hours Temperature 100.0 F Temperature 98.2 F Results - Labs CBC & Chem 7: 05/28/18 13:13 05/28/18 14:50 Labs: Abnormal lab results 05/28/18 05/28/18 05/28/18 Range/Units 13:13 13:13 13:13 Hgb 9.7 L (10.1-14.3) gm/dl MCV 77 L (79-97) fl MCH 23 L (28-32) pg MCHC 29 L (30-34) % RDW 19.2 H (13.2-15.2) % Lymph % (Auto) 8.5 L (13.4-35.0) % Cloud % (Auto) 11.3 H (0.0-7.3) % Lymph # 0.8 L (1.2-5.4) K/mm3 Cloud # 1.1 H (0.0-0.8) K/mm3 Seg Neutrophils % 79.8 H (40.0-70.0) % D-Dimer 1062.49 H (0-234) ng/mlDDU POC ABG pH (7.35-7.45) POC ABG pCO2 (35-45) POC ABG pO2 (80-105) Chloride (98-107) mmol/L BUN 24 H (7-17) mg/dL Creatinine 0.6 L (0.7-1.2) mg/dL Calcium (8.4-10.2) mg/dL Albumin 3.5 L (3.9-5) g/dL Ur Specific [place] (1.003-1.030) 05/28/18 05/28/18 05/28/18 Range/Units 13:22 14:50 16:05 Hgb (10.1-14.3) gm/dl MCV (79-97) fl MCH (28-32) pg MCHC (30-34) % RDW (13.2-15.2) % Lymph % (Auto) (13.4-35.0) % Cloud % (Auto) (0.0-7.3) % Lymph # (1.2-5.4) K/mm3 Cloud # (0.0-0.8) K/mm3 Seg Neutrophils % (40.0-70.0) % D-Dimer (0-234) ng/mlDDU POC ABG pH 7.249 L 7.126 L (7.35-7.45) POC ABG pCO2 68.9 H (35-45) POC ABG pO2 77 L (80-105) Chloride 109.1 H (98-107) mmol/L BUN 22 H (7-17) mg/dL Creatinine 0.5 L (0.7-1.2) mg/dL Calcium 7.5 L (8.4-10.2) mg/dL Albumin (3.9-5) g/dL Ur Specific [place] (1.003-1.030) 05/28/18 05/28/18 05/28/18 Range/Units 17:57 18:48 22:47 Hgb (10.1-14.3) gm/dl MCV (79-97) fl MCH (28-32) pg MCHC (30-34) % RDW (13.2-15.2) % Lymph % (Auto) (13.4-35.0) % Cloud % (Auto) (0.0-7.3) % Lymph # (1.2-5.4) K/mm3 Cloud # (0.0-0.8) K/mm3 Seg Neutrophils % (40.0-70.0) % D-Dimer (0-234) ng/mlDDU POC ABG pH 7.195 L 7.312 L (7.35-7.45) POC ABG pCO2 57.5 H (35-45) POC ABG pO2 57 L 73 L (80-105) Chloride (98-107) mmol/L BUN (7-17) mg/dL Creatinine (0.7-1.2) mg/dL Calcium (8.4-10.2) mg/dL Albumin (3.9-5) g/dL Ur Specific [place] > 1.030 H (1.003-1.030) - Imaging and Cardiology CT scan - chest: report reviewed, image reviewed (LLL airbronchograms with concern for pneumonia) Assessment and Plan Cultures: 05/28/2018 and blood culture: In progress A/P: 58-year-old female with COPD with chronic respiratory failure on home oxygen admitted with shortness of breath and confusion: 1) Septic shock, likely secondary to left lower lobe pneumonia: Given severe pneumonia requiring mechanical ventilation and ICU stay, recommend empiric IV ce fepime and IV vancomycin. 2) Acute on chronic respiratory failure with underlying COPD: On mechanical ventilation 3) Acute encephalopathy: likely metabolic. 4) Spinal hardware noted on imaging, no concern for infection at present. Recs: Switched antibiotics to IV cefepime and vancomycin Tracheal aspirate culture ordered MRSA nasal PCR ordered Will follow. Please call with questions. MD José Miguel [facility] C: [phone] O: [phone] F: [phone]
[2018-05-29] MEDS: NORVASC PO SCH (11:20)
[2018-05-29] MEDS: TOPROL XL PO SCH ×2 (11:21→23:22)
[2018-05-29] MEDS: ZESTRIL PO SCH (11:21)
[2018-05-29] MEDS ORDERED: BUSPAR ONE (11:28)
[2018-05-29] MEDS ORDERED: PROTONIX PO ONE (11:29)
[2018-05-29] MEDS ORDERED: LIORESAL ONE (11:29)
[2018-05-29] MEDS ORDERED: VANCOMYCIN PHARMACY TO DOSE IV SCH (12:00)
[2018-05-29] MEDS ORDERED: NACL 0.9% 1000 ML 1,000 ML ONE (13:01)
[2018-05-29] MEDS ORDERED: MAXIPIME/NS 2 GM/100 ML 2 GM/100 ML BAG IV ONE (13:01)
[2018-05-29] MEDS: NACL 0.9% 1000 ML 1,000 ML IV SCH ×2 (13:15→23:21)
[2018-05-29] MEDS: MAXIPIME/NS 2 GM/100 ML 2 GM/100 ML BAG IV SCH ×2 (13:16→23:08)
[2018-05-29] MEDS ORDERED: VANCOMYCIN 1,500 MG in NACL 0.9% 500 ML 500 ML IV ONE (14:00)
[2018-05-29] MEDS: BUSPAR PO SCH ×2 (14:00→23:08)
[2018-05-29] MEDS: LIORESAL PO SCH ×2 (14:02→23:08)
--- NOTE | 2018-05-29 17:22 | Event Note ---
Date: 05/29/18 I was asked to place a central line into this patient as she is on pressors and she has had an intraosseous line for greater than 24 hours. There was an order for a PICC line to be placed but this was not completed. The patient is intubated, hypotensive on norepinephrine. The central line was placed using ultrasound guidance. The right femoral region/groin was cleaned with chlorhexidine solution both before and after sterile drapes were placed. I wore a gown, gloves, cap, mask. Once the collapsible right femoral vein was visualized on ultrasound, a large-bore needle was then placed into the vein with good venous blood return. The syringe was removed and a guidewire was placed through the needle into the femoral vein and then the needle was removed. A small incision was made at the base of the guidewire at the skin. After this, a dilator was used to dilate the vein over the guidewire. The dilator was removed and the triple-lumen central venous catheter was placed over the guidewire into the femoral vein. The guidewire was then removed. All 3 ports were capped and flushed with good blood flow/return. The central line was then sutured to the skin with nylon suture and Tegaderm and tape was used to keep it in place. There were no obvious complications from this procedure. Less than 5 mL of estimated blood loss. All sharps were placed in the appropriate disposal containers.
[2018-05-29] MEDS: LOVENOX SUB-Q SCH (23:09)
[2018-05-29] MEDS: VANCOMYCIN 1,250 MG in NACL 0.9% 250ML 250 ML IV SCH (23:30)
[2018-05-30 00:33] LABS: Amphetamine Screen,Urine PRESUMPTIVE NEGATIVE; Benzodiazepines Screen,Urine PRESUMPTIVE NEGATIVE; Cannabinoid Screen,Urine PRESUMPTIVE NEGATIVE; Cocaine Screen,Urine PRESUMPTIVE NEGATIVE; Methadone Screen,Urine PRESUMPTIVE NEGATIVE; Opiate Screen,Urine PRESUMPTIVE NEGATIVE
[2018-05-30] MEDS: fentaNYL DRIP Premix 2,000 MCG/100 ML BAG IV SCH ×4 (01:53→23:21)
[2018-05-30] MEDS: DIPRIVAN 10 MG/ML 1,000 MG/100 ML BOTTLE IV SCH ×2 (02:17→18:55)
[2018-05-30] MEDS: SOLU-Medrol IV SCH ×3 (05:43→22:58)
[2018-05-30] MEDS: PULMICORT IH SCH ×2 (07:58→19:36)
[2018-05-30] MEDS: DUONEB *Not for PRN Use IH SCH ×4 (07:58→19:36)
[2018-05-30] MEDS: LEVOPHED DRIP 4 MG/NS 250 ML 4 MG/250 ML BAG IV SCH (08:46)
--- NOTE | 2018-05-30 08:49 | Progress Note ---
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 According to chart, pt has not been using her O2 and started hallucinating. She was intubated in the ED. She was also hypotensive in the ED and started on Vasopressor/Levophed * CTA chest IMPRESSION: 1. Study degraded by artifact created by retained hardware in the thoracic spine and by motion artifact. 2. No evidence of central pulmonary artery emboli. However, segmental pulmonary artery emboli could be missed or overcalled due to significant artifact. 3. Complete consolidation left lower lobe with air bronchograms and volume loss consistent with atelectasis. There appears to be opacification of a portion of the left lower lobe bronchus. 4. Tip of the endotracheal tube projected in satisfactory position. 5. Cardiomegaly. 6. IVC filter. 7. Prominent kyphosis of the thoracic spine with extensive instrumentation with retained hardware. * Abdominal 1 view XRAY IMPRESSION: Nasogastric tube is terminating in the stomach. Mild degree left pleural effusion * pCXR FINDINGS: Heart: Prominent cardiac silhouette. Mediastinum/Vessels: Prominent central vessels. Lungs/Pleural space: Left lung base airspace consolidation. Bony thorax: No acute osseous abnormality. Life support devices: The endotracheal tube tip is obscured by hardware in the thoracic spine, but likely projects approximately 4 cm superior to the carlos manuel. IMPRESSION: Prominent cardiac silhouette. Left lung base airspace consolidatio n -AMS with Acute encephalopathy, prior records show a long history of similar presentations and PCP toxicity: I ordered UDS -Acute on chronic combined respiratory failure s/p ETT MV: daily weaning attempt, consulted Payroll Benefits Administrator/Play Reader -Severe AE COPD: treat with iv steriods, abx, nebs around the clock -Hypotension due to circulatory shock possible septic shock from LLL pneumonia: on Vasopressor -Septic Shock suspected LLL pneumonia: treat with ivf, abx, consult ID following, trachea aspirate growing Gram negative DVT prophylaxis: sq Lovenox Disposition: continue Critcal care, trying to wean off pressors and vent but still febrile full code CCT 31 minutes History Interval history: Patient was seen and examined. Follow-up on current diagnosis of respiratory failure, intubated and sedated. Imaging, nursing note, chart, labs and old chart reviewed. Hospitalist Physical - Physical exam Narrative exam: Gen: critical ill, intubated HEENT: NCAT, pupils reactive, OP ETT in place Neck: supple, no adenopathy, no thyromegaly, no JVD CVS/Heart: regular tachycardia, normal S1S2, pulses present bilaterally Chest/Lungs: diminished bs bilateral Symmetrical chest expansion, good air entry bilaterally GI/Abdomen: soft, NTND, good bowel sounds, no guarding or rebound /Bladder: no suprapubic tenderness, no CVA or paraspinal tenderness Extermity/Skin: no c/c/e, no obvious rash MSK: sedated Neuro: sedated Psych: sedated - Constitutional Vitals: Temp Pulse Resp BP Pulse Ox 100.5 F H 138 H 30 H 118/64 91 05/30/18 03:14 05/30/18 07:58 05/30/18 06:20 05/30/18 07:58 05/30/18 07:58 Results - Labs CBC & Chem 7: 05/28/18 13:13 05/28/18 14:50 Labs: Laboratory Last Values WBC 9.6 K/mm3 (4.5-11.0) 05/28/18 13:13 RBC 4.28 M/mm3 (3.65-5.03) 05/28/18 13:13 Hgb 9.7 gm/dl (10.1-14.3) L 05/28/18 13:13 Hct 33.1 % (30.3-42.9) 05/28/18 13:13 MCV 77 fl (79-97) L 05/28/18 13:13 MCH 23 pg (28-32) L 05/28/18 13:13 MCHC 29 % (30-34) L 05/28/18 13:13 RDW 19.2 % (13.2-15.2) H 05/28/18 13:13 Plt Count 198 K/mm3 (140-440) 05/28/18 13:13 Lymph % (Auto) 8.5 % (13.4-35.0) L 05/28/18 13:13 [place] % (Auto) 11.3 % (0.0-7.3) H 05/28/18 13:13 Eos % (Auto) 0.0 % (0.0-4.3) 05/28/18 13:13 Baso % (Auto) 0.4 % (0.0-1.8) 05/28/18 13:13 Lymph # 0.8 K/mm3 (1.2-5.4) L 05/28/18 13:13 [place] # 1.1 K/mm3 (0.0-0.8) H 05/28/18 13:13 Eos # 0.0 K/mm3 (0.0-0.4) 05/28/18 13:13 Baso # 0.0 K/mm3 (0.0-0.1) 05/28/18 13:13 Seg Neutrophils % 79.8 % (40.0-70.0) H 05/28/18 13:13 Seg Neutrophils # 7.7 K/mm3 (1.8-7.7) 05/28/18 13:13 D-Dimer 1062.49 ng/mlDDU (0-234) H 05/28/18 13:13 POC ABG pH 7.214 (7.35-7.45) L 05/30/18 06:10 POC ABG pCO2 64.5 (35-45) H 05/30/18 06:10 POC ABG pO2 83 (80-105) 05/30/18 06:10 POC ABG HCO3 26.0 (22-26 mml/L) 05/30/18 06:10 POC ABG Total CO2 28 (23-27mmol/L) 05/30/18 06:10 POC ABG O2 Sat 93 05/30/18 06:10 POC ABG Base Excess -2 ((-2) - (+3)mmol/L) 05/30/18 06:10 FiO2 65 % 05/30/18 06:10 Sodium 143 mmol/L (137-145) 05/28/18 14:50 Potassium 4.2 mmol/L (3.6-5.0) 05/28/18 14:50 Chloride 109.1 mmol/L (98-107) H 05/28/18 14:50 Carbon Dioxide 22 mmol/L (22-30) 05/28/18 14:50 Anion Gap 16 mmol/L 05/28/18 14:50 BUN 22 mg/dL (7-17) H 05/28/18 14:50 Creatinine 0.5 mg/dL (0.7-1.2) L 05/28/18 14:50 Estimated GFR > 60 ml/min 05/28/18 14:50 BUN/Creatinine Ratio 44 % 05/28/18 14:50 Glucose 77 mg/dL (65-100) 05/28/18 14:50 Lactic Acid 0.90 mmol/L (0.7-2.0) 05/28/18 14:50 Calcium 7.5 mg/dL (8.4-10.2) L 05/28/18 14:50 Total Bilirubin 0.30 mg/dL (0.1-1.2) 05/28/18 13:13 AST 23 units/L (5-40) 05/28/18 13:13 ALT 11 units/L (7-56) 05/28/18 13:13 Alkaline Phosphatase 96 units/L (35-129) 05/28/18 13:13 Troponin T < 0.010 ng/mL (0.00-0.029) 05/28/18 13:13 Total Protein 6.6 g/dL (6.3-8.2) 05/28/18 13:13 Albumin 3.5 g/dL (3.9-5) L 05/28/18 13:13 Albumin/Globulin Ratio 1.1 % 05/28/18 13:13 Urine Color Yellow (Yellow) 05/28/18 17:57 Urine Turbidity Clear (Clear) 05/28/18 17:57 Urine pH 6.0 (5.0-7.0) 05/28/18 17:57 Ur Specific [place] > 1.030 (1.003-1.030) H 05/28/18 17:57 Urine Protein 100 mg/dl mg/dL (Negative) 05/28/18 17:57 Urine Glucose (UA) Neg mg/dL (Negative) 05/28/18 17:57 Urine Ketones 20 mg/dL (Negative) 05/28/18 17:57 Urine Blood Sm (Negative) 05/28/18 17:57 Urine Nitrite Neg (Negative) 05/28/18 17:57 Urine Bilirubin Neg (Negative) 05/28/18 17:57 Urine Urobilinogen 2.0 mg/dL (<2.0) 05/28/18 17:57 Ur Leukocyte Esterase Neg (Negative) 05/28/18 17:57 Urine WBC (Auto) 1.0 /HPF (0.0-6.0) 05/28/18 17:57 Urine RBC (Auto) 2.0 /HPF (0.0-6.0) 05/28/18 17:57 U Epithel Cells (Auto) < 1.0 /HPF (0-13.0) 05/28/18 17:57 Urine Mucus Few /HPF 05/28/18 17:57 Urine Opiates Screen Presumptive negative 05/29/18 23:50 Urine Methadone Screen Presumptive negative 05/29/18 23:50 Ur Barbiturates Screen Presumptive negative 05/29/18 23:50 Ur Phencyclidine Scrn Presumptive negative 05/29/18 23:50 Ur Amphetamines Screen Presumptive negative 05/29/18 23:50 U Benzodiazepines Scrn Presumptive negative 05/29/18 23:50 Urine Cocaine Screen Presumptive negative 05/29/18 23:50 U Marijuana (THC) Screen Presumptive negative 05/29/18 23:50 Drugs of Abuse Note Disclamer 05/29/18 23:50 Active Medications - Current Medications Current Medications: Generic Name Dose Route Start Last Admin Trade Name Freq PRN Reason Stop Dose Admin Albuterol 2.5 mg 05/28/18 22:43 Proventil IH Q4HRT PRN Shortness Of Breath Albuterol/Ipratropium 1 ampul 05/29/18 08:00 05/30/18 07:58 Duoneb *Not For Prn Use* IH Not Given QIDRT [facility] Amlodipine Besylate 10 mg 05/29/18 10:00 05/29/18 11:20 Norvasc PO Not Given DAILY [facility] Lipase/Protease/Amylase 1 each 05/28/18 22:45 Pancreaze 10,500 Unit FEEDTUBE PRN PRN For Clogged Feeding Tube Baclofen 10 mg 05/28/18 23:00 05/29/18 23:08 Lioresal PO 10 mg BID [facility] Administration Budesonide 0.5 mg 05/28/18 22:45 05/30/18 07:58 Pulmicort IH Not Given Q12HRT [facility] Buspirone HCl 5 mg 05/28/18 23:00 05/29/18 23:08 Buspar PO 5 mg BID [facility] Administration Enoxaparin Sodium 40 mg 05/29/18 22:00 05/29/18 23:09 Lovenox SUB-Q 40 mg QDAY@2200 [facility] Administration Fentanyl 50 mcg 05/28/18 20:26 Sublimaze IV Q10MIN PRN ANALGESIA Norepinephrine 4 mg in 250 mls @ 7.5 mls/hr 05/28/18 19:00 05/30/18 07:51 Levophed Drip 4 Mg/Ns 250 Ml IV Infused TITR [facility] Titration Protocol 2 MCG/MIN Fentanyl Citrate 2,000 mcg in 100 mls @ 3.969 mls/hr 05/28/18 21:00 05/30/18 01:53 Fentanyl Drip Premix IV 3 mcg/kg/hr TITR [facility] 11.907 mls/hr Administration Protocol 1 MCG/KG/HR Sodium Chloride 1,000 mls @ 100 mls/hr 05/28/18 23:00 05/29/18 23:21 Nacl 0.9% 1000 Ml IV 100 mls/hr DIRECT [facility] Administration Cefepime HCl 2 gm in 100 mls @ 200 mls/hr 05/29/18 12:00 05/30/18 05:45 Maxipime/Ns 2 Gm/100 Ml IV Infused Q12HR [facility] Infusion Protocol Vancomycin HCl 1,250 mg/ 275 mls @ 166.667 mls/hr 05/29/18 23:00 05/29/18 23:30 Sodium Chloride IV 166.667 mls/hr Q12H [facility] Administration Propofol 1,000 mg in 100 mls @ 2.526 mls/hr 05/30/18 02:07 05/30/18 05:30 Diprivan 10 Mg/Ml IV 6 mcg/kg/min TITR [facility] 3.031 mls/hr Titration Protocol 5 MCG/KG/MIN Lansoprazole 30 mg 05/30/18 10:00 Prevacid Solutab FEEDTUBE QDAY [facility] Lisinopril 10 mg 05/29/18 10:00 05/29/18 11:21 Zestril PO Not Given QDAY [facility] Methylprednisolone Sodium Succinate 125 mg 05/28/18 23:00 05/30/18 05:43 Solu-Medrol IV 125 mg Q8HR [facility] Administration Metoprolol Succinate 100 mg 05/29/18 10:00 05/29/18 23:22 Toprol Xl PO Not Given BID [facility] Simple Syrup 15 ml 05/28/18 22:45 Simple Syrup FEEDTUBE PRN PRN Hypoglycemia Simple Syrup 30 ml 05/28/18 22:45 Simple Syrup FEEDTUBE PRN PRN Hypoglycemia Sodium Bicarbonate 325 mg 05/28/18 22:45 Sodium Bicarbonate FEEDTUBE PRN PRN For Clogged Feeding Tube Sodium Chloride 10 ml 05/29/18 10:00 05/29/18 23:08 Sodium Chloride Flush Syringe 10 Ml IV 10 ml BID [facility] Administration Sodium Chloride 10 ml 05/28/18 22:45 Sodium Chloride Flush Syringe 10 Ml IV PRN PRN LINE FLUSH Nutrition/Malnutrition Assess - Dietary Evaluation Nutrition/Malnutrition Findings: Nutrition Notes Start: 05/29/18 09:32 Freq: Status: Active Protocol: Document 05/29/18 09:32 GIANFRANCO (Rec: 05/29/18 09:38 GIANFRANCO [email or web address]) Nutrition Notes Need for Assessment generated from: MD Order Initial or Follow up Assessment Current Diagnosis COPD,Hypertension,Respiratory Failure Other Pertinent Diagnosis COPD exacerbation, End-stage lung Dz Current Diet NPO Labs/Tests Reviewed Pertinent Medications Solumedrol, Levophed gtt Height 5 ft Weight 79.379 kg [place] Body Weight (kg) 45.45 BMI 34.2 Weight Status Obese Subjective/Other Information RD consulted for TF. Pt in ED at this time and on vent support. Burn Absent Trauma Absent #1 Nutrition Diagnosis Inadequate oral intake Etiology [facility] ventilation As Evidenced by Signs and Symptoms pt NPO Is patient on ventilator? Yes Is Patient Ambulatory and/or Out of Bed No REE-([place]-confined to bed) [phone] Calculation Used for Recommendations 65-70% energy needs Additional Notes Pro needs 2g/kg IBW: 91g/day Fluid needs 1ml/kcal Nutrition Intervention Nutrition Support: Vital High Protein at 45ml/hr. Provide 50ml water flush q4h . Kcal 1,080 Protein (gm) 95 Carbohydrates (gm) 121 Fat (gm) 25 Fluid (mL) 903 Fiber (gm) 0 Goal #1 TF tolerance Goal #2 TF to meet 65-70% energy and 80-100% pro needs Anticipated Discharge Needs: Unable to identify at this time Follow-Up By: 06/01/18 Additional Comments F/U: new TF, vent status
[2018-05-30] MEDS: MAXIPIME/NS 2 GM/100 ML 2 GM/100 ML BAG IV SCH ×2 (10:10→22:57)
[2018-05-30] MEDS: LIORESAL PO SCH ×2 (10:11→22:58)
[2018-05-30] MEDS: NORVASC PO SCH (10:12)
[2018-05-30] MEDS: BUSPAR PO SCH ×2 (10:12→22:58)
[2018-05-30] MEDS: SODIUM CHLORIDE FLUSH SYRINGE 10 ML IV SCH ×2 (10:14→22:58)
[2018-05-30] MEDS: PREVACID SOLUTAB FEEDTUBE SCH (10:14)
[2018-05-30] MEDS: TOPROL XL PO SCH ×2 (10:15→22:58)
[2018-05-30] MEDS: ZESTRIL PO SCH (10:16)
[2018-05-30] MEDS: NACL 0.9% 1000 ML 1,000 ML IV SCH ×2 (10:18→23:00)
[2018-05-30] MEDS: VANCOMYCIN 1,250 MG in NACL 0.9% 250ML 250 ML IV SCH ×2 (11:02→23:10)
[2018-05-30] MEDS ORDERED: AFLURIA QUAD 2018-2019 SYRINGE IM ONE (12:00)
--- NOTE | 2018-05-30 13:21 | Consultation ---
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 According to chart, patient has not been using her O2 and started hallucinating. She was intubated in the ED. She was also hypotensive in the ED and started on Vasopressor/Levophed after the placement of a right sorenson IO Patient was seen and examined. Vitals, labs, medications, chart and imaging were reviewed. Orally intubated on vasopressor support and fentanyl/propofol. Very agitated at this time Medications and Allergies Allergies Allergy/AdvReac Type Severity Reaction Status Date / Time hydromorphone [From Dilaudid] Allergy Unknown Verified 03/01/18 21:50 phenobarbital Allergy Unknown Verified 10/28/14 09:33 Home Medications Medication Instructions Recorded Confirmed Last Taken Type Venlafaxine HCl [Venlafaxine] 100 mg PO TIDWM #30 tablet 07/16/16 03/02/18 1 Day Ago Rx ~08/13/16 Pantoprazole [Protonix TAB] 40 mg PO QDAY 08/08/16 03/02/18 1 Day Ago History ~08/13/16 amLODIPine [Norvasc] 10 mg PO DAILY 08/08/16 03/02/18 1 Day Ago History ~08/13/16 Baclofen [Lioresal] 10 mg PO BID 03/02/18 03/02/18 Unknown History Lisinopril [Zestril TAB] 10 mg PO QDAY 03/02/18 03/02/18 Unknown History Metoprolol Xl [Metoprolol 100 mg PO BID 03/02/18 03/02/18 Unknown History SUCCINATE ER TAB] Nitroglycerin [Nitrostat] 0.4 mg SL Q5M PRN 03/02/18 03/02/18 Unknown History busPIRone [Buspar] 5 mg PO BID 03/02/18 03/02/18 Unknown History diphenhydrAMINE [Benadryl CAP] 25 mg PO QHS PRN 03/02/18 03/02/18 Unknown History Active Meds: Active Medications Albuterol (Proventil) 2.5 mg IH Q4HRT PRN PRN Reason: Shortness Of Breath Albuterol/Ipratropium (Duoneb *Not For Prn Use*) 1 ampul IH QIDRT [facility] Last Admin: 05/30/18 13:19 Dose: 1 ampul Documented by: Amlodipine Besylate (Norvasc) 10 mg PO DAILY [facility] Last Admin: 05/30/18 10:12 Dose: Not Given Documented by: Lipase/Protease/Amylase (Chicho Pereira 10,500 Unit) 1 each FEEDTUBE PRN PRN PRN Reason: For Clogged Feeding Tube Baclofen (Lioresal) 10 mg PO BID [facility] Last Admin: 05/30/18 10:11 Dose: Not Given Documented by: Budesonide (Pulmicort) 0.5 mg IH Q12HRT [facility] Last Admin: 05/30/18 07:58 Dose: Not Given Documented by: Buspirone HCl (Buspar) 5 mg PO BID [facility] Last Admin: 05/30/18 10:12 Dose: Not Given Documented by: Enoxaparin Sodium (Lovenox) 40 mg SUB-Q QDAY@2200 [facility] Last Admin: 05/29/18 23:09 Dose: 40 mg Documented by: Fentanyl (Sublimaze) 50 mcg IV Q10MIN PRN PRN Reason: ANALGESIA Norepinephrine (Levophed Drip 4 Mg/Ns 250 Ml) 4 mg in 250 mls @ 7.5 mls/hr IV TITR [facility]; Protocol Last Titration: 05/30/18 10:12 Dose: 2 mcg/min, 7.5 mls/hr Documented by: Fentanyl Citrate (Fentanyl Drip Premix) 2,000 mcg in 100 mls @ 3.969 mls/hr IV TITR [facility]; Protocol Last Admin: 05/30/18 10:14 Dose: 3 mcg/kg/hr, 11.907 mls/hr Documented by: Sodium Chloride (Nacl 0.9% 1000 Ml) 1,000 mls @ 100 mls/hr IV DIRECT [facility] Last Admin: 05/30/18 10:18 Dose: 100 mls/hr Documented by: Cefepime HCl (Maxipime/Ns 2 Gm/100 Ml) 2 gm in 100 mls @ 200 mls/hr IV Q12HR [facility]; Protocol Last Admin: 05/30/18 10:10 Dose: 200 mls/hr Documented by: Vancomycin HCl 1,250 mg/ (Sodium Chloride) 275 mls @ 166.667 mls/hr IV Q12H [facility] Last Admin: 05/30/18 11:02 Dose: 166.667 mls/hr Documented by: Propofol (Diprivan 10 Mg/Ml) 1,000 mg in 100 mls @ 2.526 mls/hr IV TITR [facility]; Protocol Last Titration: 05/30/18 08:54 Dose: 10 mcg/kg/min, 5.052 mls/hr Documented by: Lansoprazole (Prevacid Solutab) 30 mg FEEDTUBE QDAY [facility] Last Admin: 05/30/18 10:14 Dose: 30 mg Documented by: Lisinopril (Zestril) 10 mg PO QDAY [facility] Last Admin: 05/30/18 10:16 Dose: Not Given Documented by: Methylprednisolone Sodium Succinate (Solu-Medrol) 125 mg IV Q8HR [facility] Last Admin: 05/30/18 05:43 Dose: 125 mg Documented by: Metoprolol Succinate (Toprol Xl) 100 mg PO BID [facility] Last Admin: 05/30/18 10:15 Dose: Not Given Documented by: Simple Syrup (Simple Syrup) 15 ml FEEDTUBE PRN PRN PRN Reason: Hypoglycemia Simple Syrup (Simple Syrup) 30 ml FEEDTUBE PRN PRN PRN Reason: Hypoglycemia Sodium Bicarbonate (Sodium Bicarbonate) 325 mg FEEDTUBE PRN PRN PRN Reason: For Clogged Feeding Tube Sodium Chloride (Sodium Chloride Flush Syringe 10 Ml) 10 ml IV BID [facility] Last Admin: 05/30/18 10:14 Dose: 10 ml Documented by: Sodium Chloride (Sodium Chloride Flush Syringe 10 Ml) 10 ml IV PRN PRN PRN Reason: LINE FLUSH Physical Examination Vital signs: Vital Signs Resp Pulse Ox 29 H 70 L 05/28/18 12:32 05/28/18 12:32 Constitutional: sedated, intubated, ETT at 22cm No patietn-ventilator dys-synchrony, agitated Head, Ears, Nose: Normocephalic, atraumatic. External ears, nose normal Eyes: Conjunctivae/corneas clear. No icterus. No ptosis. Neck: Supple, no meningeal signs Oral: intubated Cardiovascular:RRR, S1, S2 normal. Respiratory: Decreased AE bilaterally, no wheeze, GI: Soft, non-tender; bowel sounds normal. No peritoneal signs Right femoral CVC Musculoskeletal: No pedal edema, no cyanosis. Skin: No rash or abscess Hem/Lymphatic: No palpable cervical or supraclavicular nodes. No lymphangitis Psych:agitation Neurological: sedated, Results - Laboratory Findings CBC and BMP: 05/28/18 13:13 05/28/18 14:50 ABG POC ABG pH 7.253 (7.35-7.45) L 05/30/18 10:42 POC ABG pCO2 56.4 (35-45) H 05/30/18 10:42 POC ABG pO2 78 (80-105) L 05/30/18 10:42 POC ABG HCO3 24.9 (22-26 mml/L) 05/30/18 10:42 POC ABG Total CO2 27 (23-27mmol/L) 05/30/18 10:42 POC ABG O2 Sat 93 05/30/18 10:42 PT/INR, D-dimer D-Dimer 1062.49 ng/mlDDU (0-234) H 05/28/18 13:13 Abnormal lab findings: Abnormal Labs 05/28/18 05/28/18 05/28/18 13:13 13:13 13:13 Hgb 9.7 L MCV 77 L MCH 23 L MCHC 29 L RDW 19.2 H Lymph % (Auto) 8.5 L [place] % (Auto) 11.3 H Lymph # 0.8 L [place] # 1.1 H Seg Neutrophils % 79.8 H D-Dimer 1062.49 H POC ABG pH POC ABG pCO2 POC ABG pO2 Chloride BUN 24 H Creatinine 0.6 L Calcium Albumin 3.5 L Ur Specific [place] 05/28/18 05/28/18 05/28/18 13:22 14:50 16:05 Hgb MCV MCH MCHC RDW Lymph % (Auto) [place] % (Auto) Lymph # [place] # Seg Neutrophils % D-Dimer POC ABG pH 7.249 L 7.126 L POC ABG pCO2 68.9 H POC ABG pO2 77 L Chloride 109.1 H BUN 22 H Creatinine 0.5 L Calcium 7.5 L Albumin Ur Specific Regent 05/28/18 05/28/18 05/28/18 17:57 18:48 22:47 Hgb MCV MCH MCHC RDW Lymph % (Auto) [place] % (Auto) Lymph # [place] # Seg Neutrophils % D-Dimer POC ABG pH 7.195 L 7.312 L POC ABG pCO2 57.5 H POC ABG pO2 57 L 73 L Chloride BUN Creatinine Calcium Albumin Ur Specific Regent > 1.030 H 05/30/18 05/30/18 06:10 10:42 Hgb MCV MCH MCHC RDW Lymph % (Auto) [place] % (Auto) Lymph # [place] # Seg Neutrophils % D-Dimer POC ABG pH 7.214 L 7.253 L POC ABG pCO2 64.5 H 56.4 H POC ABG pO2 78 L Chloride BUN Creatinine Calcium Albumin Ur Specific Regent - Diagnostic Findings Chest x-ray: image reviewed (Left lowee lobe infiltrate) CT scan - chest: image reviewed Additional studies: CTA chest IMPRESSION: 1. Study degraded by artifact created by retained hardware in the thoracic spine and by motion artifact. 2. No evidence of central pulmonary artery emboli. However, segmental pulmonary artery emboli could be missed or overcalled due to significant artifact. 3. Complete consolidation left lower lobe with air bronchograms and volume loss consistent with atelectasis. There appears to be opacification of a portion of the left lower lobe bronchus. 4. Tip of the endotracheal tube projected in satisfactory position. 5. Cardiomegaly. 6. IVC filter. 7. Prominent kyphosis of the thoracic spine with extensive instrumentation with retained hardware. Abdominal 1 view XRAY IMPRESSION: Nasogastric tube is terminating in the stomach. Mild degree left pleural effusion pCXR FINDINGS: Heart: Prominent cardiac silhouette. Mediastinum/Vessels: Prominent central vessels. Lungs/Pleural space: Left lung base airspace consolidation. Bony thorax: No acute osseous abnormality. Life support devices: The endotracheal tube tip is obscured by hardware in the thoracic spine, but likely projects approximately 4 cm superior to the carlos manuel. IMPRESSION: Prominent cardiac silhouette. Left lung base airspace consolidation Assessment and Plan -Septic Shock suspected LLL pneumonia, SOFA score >2 -Acute on chronic combined( hypoxic-hypercapnic) respiratory failure s/p ETT MVS -Severe AE COPD -AMS with Acute encephalopathy -Macrocytosis -GNR pneumonia, probably secondary to aspiration -Acute encephalaopthy( toxic, metabolic) -History of substance abuse -Continue full MVS -Adjust ventilator settings for better gas-exchange, minute ventilation adjusted -Wean supplemental oxygen to keep O2 sats 88-90% -Lung protective strategies -Oxygen restrictive strategies -Daily ABGs/CXR -Antibiotics for aspiration PNA, add GNR coverage, defer ID -Follow tracheal aspirate cultures and adjust antibiotic therapy based on VITO/ID -VAP bundle addressed -Volume resuscitation. Monitor hemodynamics -Wean vasopressor support for MAP>65 -Daily SAT's & SBT's -Sedation target for RASS 0 to -1 -Stress ulcer prophylaxis -VTE prophylaxis -Tube feedings -Steroid taper, will start today -Chronic home medications -With macrocytosis, and history of drug use, will empirically initiate CIWA protocol -Aspiration precautions -Accuchecks with glycemic control. Target glucose of 140-180 mg/dL -Continue bronchodilators with pulmonary hygiene per RT -Maintenance of sleep -wake cycle -Mobility as tolerated by hemodynamics -Schedule bronchodilators therapy -Influenza and pneumonia vaccination per protocol ..care plan discussed at length with RN/RT at the bedside ..care plan discussed at length with RN/RTat the bedside PROGNOSIS GUARDED CONDITION: CRITICAL CODE STATUS: FULL CODE The high probability of a clinically significant, sudden or life-threatening deterioration of the [respiratory, neurology,] system(s) required my full and direct attention, intervention and personal management. The aggregate critical care time was [65] minutes without overlap. Time includes spent on; [x] Data Review and interpretation [x] Patient assessment and monitoring of vital signs [x] Documentation [x] Medication orders and management
[2018-05-30] MEDS: SODIUM CHLORIDE FLUSH SYRINGE 10 ML IV PRN ×2 (14:32→17:47)
--- NOTE | 2018-05-30 16:54 | XRay Report ---
XR CHEST 1V AP CLINICAL INDICATION: Female, 58 years of age. PICC placement right arm COMPARISON: May 28, 2018. Findings: Frontal view(s) of the chest obtained. Stable mild cardiac enlargement. NG tube grossly un changed in position. Right PICC line is in place. Distal tip not well-visualized but appears to exten d at least to the distal SVC. Stable hazy opacities with lower lungs and probable subtle pulmonary va sculature concerning for edema. There maybe small bilateral pleural effusions. No gross pneumothorax . IMPRESSION: 1. Right PICC line in satisfactory position. 2. Stable mild pulmonary congestion at the lung bases. This document is electronically signed by Roma Beltran DO., May 30 2018 04:52:14 PM ET
[2018-05-30] MEDS: LOVENOX SUB-Q SCH (22:57)
[2018-05-31] MEDS: PULMICORT IH SCH ×2 (07:03→20:15)
[2018-05-31] MEDS: DUONEB *Not for PRN Use IH SCH ×3 (07:03→23:00)
[2018-05-31] MEDS: SOLU-Medrol IV SCH ×3 (08:07→22:00)
[2018-05-31] MEDS: DIPRIVAN 10 MG/ML 1,000 MG/100 ML BOTTLE IV SCH ×2 (08:37→18:37)
[2018-05-31] MEDS ORDERED: ATIVAN IV PRN (08:39)
[2018-05-31] MEDS: SODIUM CHLORIDE FLUSH SYRINGE 10 ML IV PRN ×2 (08:57→13:32)
[2018-05-31] MEDS: NACL 0.9% 1000 ML 1,000 ML IV SCH ×2 (09:03→20:52)
[2018-05-31] MEDS: BUSPAR PO SCH ×2 (09:11→21:49)
[2018-05-31] MEDS: PREVACID SOLUTAB FEEDTUBE SCH (09:11)
[2018-05-31] MEDS: LOPRESSOR PO SCH ×2 (09:11→20:52)
[2018-05-31] MEDS: NORVASC PO SCH (09:11)
[2018-05-31] MEDS: LIORESAL PO SCH ×2 (09:12→21:53)
[2018-05-31] MEDS: MAXIPIME/NS 2 GM/100 ML 2 GM/100 ML BAG IV SCH (09:12)
[2018-05-31 09:19] LABS: Mean Corpuscular HGB Conc 29 % (30-34); Mean Corpuscular Volume 78 fl (79-97); Platelet Count 131 K/mm3 (140-440); Red Blood Count 4.05 M/mm3 (3.65-5.03); Red Cell Distribution Width 19.8 % (13.2-15.2)
[2018-05-31] MEDS: SODIUM CHLORIDE FLUSH SYRINGE 10 ML IV SCH ×2 (09:21→22:00)
[2018-05-31] MEDS: ZESTRIL PO SCH (09:26)
[2018-05-31] MEDS: TYLENOL FEEDTUBE PRN (09:26)
[2018-05-31 09:37] LABS: BUN/Creatinine Ratio 45; Blood Urea Nitrogen 18 mg/dL (7-17); Calcium 8.3 mg/dL (8.4-10.2); Hemolysis Index 4
[2018-05-31] MEDS: fentaNYL DRIP Premix 2,000 MCG/100 ML BAG IV SCH ×2 (09:48→20:52)
[2018-05-31] MEDS ORDERED: TOPROL XL PO SCH (10:00)
--- NOTE | 2018-05-31 10:19 | Progress Note ---
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 According to chart, pt has not been using her O2 and started hallucinating. She was intubated in the ED. She was also hypotensive in the ED and started on Vasopressor/Levophed * CTA chest IMPRESSION: 1. Study degraded by artifact created by retained hardware in the thoracic spine and by motion artifact. 2. No evidence of central pulmonary artery emboli. However, segmental pulmonary artery emboli could be missed or overcalled due to significant artifact. 3. Complete consolidation left lower lobe with air bronchograms and volume loss consistent with atelectasis. There appears to be opacification of a portion of the left lower lobe bronchus. 4. Tip of the endotracheal tube projected in satisfactory position. 5. Cardiomegaly. 6. IVC filter. 7. Prominent kyphosis of the thoracic spine with extensive instrumentation with retained hardware. * Abdominal 1 view XRAY IMPRESSION: Nasogastric tube is terminating in the stomach. Mild degree left pleural effusion * pCXR FINDINGS: Heart: Prominent cardiac silhouette. Mediastinum/Vessels: Prominent central vessels. Lungs/Pleural space: Left lung base airspace consolidation. Bony thorax: No acute osseous abnormality. Life support devices: The endotracheal tube tip is obscured by hardware in the thoracic spine, but likely projects approximately 4 cm superior to the carlos manuel. IMPRESSION: Prominent cardiac silhouette. 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 coli has not resistant, changed antibiotics -DVT prophylaxis: sq Lovenox -Disposition: continue Critcal care, trying to wean off pressors and vent but still febrile full code She has a fever of 101.3F; will change antiboitics to reflect culture, I stopped the iv vancomycin and cefepime and started levaquin/tobramycin to double cover the Pseudomonas. Await Infectious Disease input, I did inform CCT 32 minutes History Interval history: Patient was seen and examined. Follow-up on current diagnosis of respiratory failure, intubated and sedated. Imaging, nursing note, chart, labs and old chart reviewed. Hospitalist Physical - Physical exam Narrative exam: Gen: critical ill, intubated HEENT: NCAT, pupils reactive, OP ETT in place Neck: supple, no adenopathy, no thyromegaly, no JVD CVS/Heart: regular tachycardia, normal S1S2, pulses present bilaterally Chest/Lungs: diminished bs bilateral Symmetrical chest expansion, good air entry bilaterally GI/Abdomen: soft, NTND, good bowel sounds, no guarding or rebound /Bladder: no suprapubic tenderness, no CVA or paraspinal tenderness Extermity/Skin: no c/c/e, no obvious rash MSK: sedated Neuro: sedated Psych: sedated - Constitutional Vitals: Temp Pulse Resp BP Pulse Ox 98.8 F 102 H 30 H 147/78 91 05/31/18 04:00 05/31/18 09:26 05/31/18 06:40 05/31/18 09:26 05/31/18 07:00 Results - Labs CBC & Chem 7: 05/28/18 13:13 05/31/18 08:50 Labs: Laboratory Last Values WBC 9.6 K/mm3 (4.5-11.0) 05/28/18 13:13 RBC 4.28 M/mm3 (3.65-5.03) 05/28/18 13:13 Hgb 9.7 gm/dl (10.1-14.3) L 05/28/18 13:13 Hct 33.1 % (30.3-42.9) 05/28/18 13:13 MCV 77 fl (79-97) L 05/28/18 13:13 MCH 23 pg (28-32) L 05/28/18 13:13 MCHC 29 % (30-34) L 05/28/18 13:13 RDW 19.2 % (13.2-15.2) H 05/28/18 13:13 Plt Count 198 K/mm3 (140-440) 05/28/18 13:13 Lymph % (Auto) 8.5 % (13.4-35.0) L 05/28/18 13:13 [place] % (Auto) 11.3 % (0.0-7.3) H 05/28/18 13:13 Eos % (Auto) 0.0 % (0.0-4.3) 05/28/18 13:13 Baso % (Auto) 0.4 % (0.0-1.8) 05/28/18 13:13 Lymph # 0.8 K/mm3 (1.2-5.4) L 05/28/18 13:13 [place] # 1.1 K/mm3 (0.0-0.8) H 05/28/18 13:13 Eos # 0.0 K/mm3 (0.0-0.4) 05/28/18 13:13 Baso # 0.0 K/mm3 (0.0-0.1) 05/28/18 13:13 Seg Neutrophils % 79.8 % (40.0-70.0) H 05/28/18 13:13 Seg Neutrophils # 7.7 K/mm3 (1.8-7.7) 05/28/18 13:13 D-Dimer 1062.49 ng/mlDDU (0-234) H 05/28/18 13:13 POC ABG pH 7.424 (7.35-7.45) 05/31/18 04:23 POC ABG pCO2 39.9 (35-45) 05/31/18 04:23 POC ABG pO2 74 (80-105) L 05/31/18 04:23 POC ABG HCO3 26.2 (22-26 mml/L) 05/31/18 04:23 POC ABG Total CO2 27 (23-27mmol/L) 05/31/18 04:23 POC ABG O2 Sat 95 05/31/18 04:23 POC ABG Base Excess 2 ((-2) - (+3)mmol/L) 05/31/18 04:23 FiO2 65 % 05/31/18 04:23 Sodium 153 mmol/L (137-145) H D 05/31/18 08:50 Potassium 3.9 mmol/L (3.6-5.0) 05/31/18 08:50 Chloride 117.4 mmol/L (98-107) H 05/31/18 08:50 Carbon Dioxide 28 mmol/L (22-30) 05/31/18 08:50 Anion Gap 12 mmol/L 05/31/18 08:50 BUN 18 mg/dL (7-17) H 05/31/18 08:50 Creatinine 0.4 mg/dL (0.7-1.2) L 05/31/18 08:50 Estimated GFR > 60 ml/min 05/31/18 08:50 BUN/Creatinine Ratio 45 % 05/31/18 08:50 Glucose 159 mg/dL (65-100) H 05/31/18 08:50 POC Glucose 146 (70-105) H 05/31/18 06:30 Lactic Acid 0.90 mmol/L (0.7-2.0) 05/28/18 14:50 Calcium 8.3 mg/dL (8.4-10.2) L 05/31/18 08:50 Total Bilirubin 0.30 mg/dL (0.1-1.2) 05/28/18 13:13 AST 23 units/L (5-40) 05/28/18 13:13 ALT 11 units/L (7-56) 05/28/18 13:13 Alkaline Phosphatase 96 units/L (35-129) 05/28/18 13:13 Troponin T < 0.010 ng/mL (0.00-0.029) 05/28/18 13:13 Total Protein 6.6 g/dL (6.3-8.2) 05/28/18 13:13 Albumin 3.5 g/dL (3.9-5) L 05/28/18 13:13 Albumin/Globulin Ratio 1.1 % 05/28/18 13:13 Urine Color Yellow (Yellow) 05/28/18 17:57 Urine Turbidity Clear (Clear) 05/28/18 17:57 Urine pH 6.0 (5.0-7.0) 05/28/18 17:57 Ur Specific Dafter > 1.030 (1.003-1.030) H 05/28/18 17:57 Urine Protein 100 mg/dl mg/dL (Negative) 05/28/18 17:57 Urine Glucose (UA) Neg mg/dL (Negative) 05/28/18 17:57 Urine Ketones 20 mg/dL (Negative) 05/28/18 17:57 Urine Blood Sm (Negative) 05/28/18 17:57 Urine Nitrite Neg (Negative) 05/28/18 17:57 Urine Bilirubin Neg (Negative) 05/28/18 17:57 Urine Urobilinogen 2.0 mg/dL (<2.0) 05/28/18 17:57 Ur Leukocyte Esterase Neg (Negative) 05/28/18 17:57 Urine WBC (Auto) 1.0 /HPF (0.0-6.0) 05/28/18 17:57 Urine RBC (Auto) 2.0 /HPF (0.0-6.0) 05/28/18 17:57 U Epithel Cells (Auto) < 1.0 /HPF (0-13.0) 05/28/18 17:57 Urine Mucus Few /HPF 05/28/18 17:57 Urine Opiates Screen Presumptive negative 05/29/18 23:50 Urine Methadone Screen Presumptive negative 05/29/18 23:50 Ur Barbiturates Screen Presumptive negative 05/29/18 23:50 Ur Phencyclidine Scrn Presumptive negative 05/29/18 23:50 Ur Amphetamines Screen Presumptive negative 05/29/18 23:50 U Benzodiazepines Scrn Presumptive negative 05/29/18 23:50 Urine Cocaine Screen Presumptive negative 05/29/18 23:50 U Marijuana (THC) Screen Presumptive negative 05/29/18 23:50 Drugs of Abuse Note Disclamer 05/29/18 23:50 Active Medications - Current Medications Current Medications: Generic Name Dose Route Start Last Admin Trade Name Freq PRN Reason Stop Dose Admin Acetaminophen 650 mg 05/31/18 09:02 05/31/18 09:26 Tylenol FEEDTUBE 650 mg Q6H PRN Administration Non Cardiac Pain or Temp>100.5 Albuterol/Ipratropium 1 ampul 05/29/18 08:00 05/31/18 07:03 Duoneb *Not For Prn Use* IH Not Given QIDRT DOMINICK Amlodipine Besylate 10 mg 05/29/18 10:00 05/31/18 09:11 Norvasc PO 10 mg DAILY DOMINICK Administration Lipase/Protease/Amylase 1 each 05/28/18 22:[address] 10,500 Unit FEEDTUBE PRN PRN For Clogged Feeding Tube Baclofen 10 mg 05/28/18 23:00 05/31/18 09:12 Lioresal PO Not Given BID DOMINICK Budesonide 0.5 mg 05/28/18 22:45 05/31/18 07:03 Pulmicort IH Not Given Q12HRT [facility] Buspirone HCl 5 mg 05/28/18 23:00 05/31/18 09:11 Buspar PO 5 mg BID DOMINICK Administration Enoxaparin Sodium 40 mg 05/29/18 22:00 05/30/18 22:57 Lovenox SUB-Q 40 mg QDAY@2200 DOM[facility] Administration Norepinephrine 4 mg in 250 mls @ 7.5 mls/hr 05/28/18 19:00 05/30/18 14:45 Levophed Drip 4 Mg/Ns 250 Ml IV 0 mcg/min TITR DOMINICK 0 mls/hr Titration Protocol 2 MCG/MIN Fentanyl Citrate 2,000 mcg in 100 mls @ 3.969 mls/hr 05/28/18 21:00 05/31/18 09:48 Fentanyl Drip Premix IV 3 mcg/kg/hr TITR DOMINICK 11.907 mls/hr Administration Protocol 1 MCG/KG/HR Sodium Chloride 1,000 mls @ 100 mls/hr 05/28/18 23:00 05/31/18 09:03 Nacl 0.9% 1000 Ml IV 100 mls/hr DIRECT DOMINICK Administration Cefepime HCl 2 gm in 100 mls @ 200 mls/hr 05/29/18 12:00 05/31/18 09:12 Maxipime/Ns 2 Gm/100 Ml IV 200 mls/hr Q12HR [facility] Administration Protocol Vancomycin HCl 1,250 mg/ 275 mls @ 166.667 mls/hr 05/29/18 23:00 05/30/18 23:10 Sodium Chloride IV 166.667 mls/hr Q12H [facility] Administration Propofol 1,000 mg in 100 mls @ 2.526 mls/hr 05/30/18 02:07 05/31/18 09:46 Diprivan 10 Mg/Ml IV 15 mcg/kg/min TITR DOMINICK 7.578 mls/hr Titration Protocol 5 MCG/KG/MIN Lansoprazole 30 mg 05/30/18 10:00 05/31/18 09:11 Prevacid Solutab FEEDTUBE 30 mg QDAY DOMINICK Administration Lisinopril 10 mg 05/29/18 10:00 05/31/18 09:26 Zestril PO 10 mg QDAY DOMINICK Administration Lorazepam 2 mg 05/31/18 08:39 Ativan IV Q1H PRN CIWA-Ar 8-15 Lorazepam 4 mg 05/31/18 08:39 Ativan IV Q1H PRN CIWA-Ar 16-25 Lorazepam 4 mg 05/31/18 08:39 Ativan IV Q15MIN PRN CIWA-Ar >25 Methylprednisolone Sodium Succinate 60 mg 05/31/18 14:00 Solu-Medrol IV Q8HR DOMINICK Metoprolol Tartrate 100 mg 05/31/18 10:00 05/31/18 09:11 Lopressor PO 100 mg BID DOMINICK Administration Quetiapine Fumarate 100 mg 05/30/18 14:00 05/31/18 09:11 Seroquel PO 100 mg BID DOMINICK Administration Simple Syrup 15 ml 05/28/18 22:45 Simple Syrup FEEDTUBE PRN PRN Hypoglycemia Simple Syrup 30 ml 05/28/18 22:45 Simple Syrup FEEDTUBE PRN PRN Hypoglycemia Sodium Bicarbonate 325 mg 05/28/18 22:45 Sodium Bicarbonate FEEDTUBE PRN PRN For Clogged Feeding Tube Sodium Chloride 10 ml 05/29/18 10:00 05/31/18 09:21 Sodium Chloride Flush Syringe 10 Ml IV 10 ml BID DOMINICK Administration Sodium Chloride 10 ml 05/28/18 22:45 05/31/18 08:57 Sodium Chloride Flush Syringe 10 Ml IV 10 ml PRN PRN Administration LINE FLUSH Nutrition/Malnutrition Assess - Dietary Evaluation Nutrition/Malnutrition Findings: Nutrition Notes Start: 05/29/18 09:32 Freq: Status: Active Protocol: Document 05/29/18 09:32 GIANFRANCO (Rec: 05/29/18 09:38 GIANFRANCO [email or web address]) Nutrition Notes Need for Assessment generated from: MD Order Initial or Follow up Assessment Current Diagnosis COPD,Hypertension,Respiratory Failure Other Pertinent Diagnosis COPD exacerbation, End-stage lung Dz Current Diet NPO Labs/Tests Reviewed Pertinent Medications Solumedrol, Levophed gtt Height 5 ft Weight 79.379 kg [place] Body Weight (kg) 45.45 BMI 34.2 Weight Status Obese Subjective/Other Information RD consulted for TF. Pt in ED at this time and on vent support. Burn Absent Trauma Absent #1 Nutrition Diagnosis Inadequate oral intake Etiology mech ventilation As Evidenced by Signs and Symptoms pt NPO Is patient on ventilator? Yes Is Patient Ambulatory and/or Out of Bed No REE-([facility]-confined to bed) [phone] Calculation Used for Recommendations 65-70% energy needs Additional Notes Pro needs 2g/kg IBW: 91g/day Fluid needs 1ml/kcal Nutrition Intervention Nutrition Support: Vital High Protein at 45ml/hr. Provide 50ml water flush q4h . Kcal 1,080 Protein (gm) 95 Carbohydrates (gm) 121 Fat (gm) 25 Fluid (mL) 903 Fiber (gm) 0 Goal #1 TF tolerance Goal #2 TF to meet 65-70% energy and 80-100% pro needs Anticipated Discharge Needs: Unable to identify at this time Follow-Up By: 06/01/18 Additional Comments F/U: new TF, vent status
[2018-05-31 10:46] LABS: Hematocrit 31.5 % (30.3-42.9); Hemoglobin 9.3 gm/dl (10.1-14.3)
[2018-05-31 10:57] LABS: Basophils % (Manual) 0 % (0.0-1.8); Eosinophils % (Manual) 0 % (0.0-4.3); Monocytes % (Manual) 0 % (0.0-7.3); Total Cells Counted 100
[2018-05-31 10:58] LABS: Hypochromasia Few; Platelet Estimate Consistent w Auto; Stomatocytes Rare
[2018-05-31] MEDS: FREE WATER PO SCH ×4 (11:47→22:00)
[2018-05-31] MEDS: LEVAQUIN 750MG/150ML 750 MG/150 ML BAG IV SCH (11:48)
--- NOTE | 2018-05-31 12:10 | Progress Note ---
Assessment and Plan Septic Shock suspected LLL pneumonia, SOFA score >2 Acute on chronic combined( hypoxic-hypercapnic) respiratory failure s/p ETT MVS Severe AE COPD AMS with Acute encephalopathy Macrocytosis GNR pneumonia, probably secondary to aspiration Acute encephalaopthy( toxic, metabolic) History of substance abuse - Continue full MVS acotely - continue to wean supplemental oxygen to keep O2 sats 88-90% - continue Lung protective strategies - Oxygen restrictive strategies acutely (target sat's 88-90% acutely) - Daily ABGs/CXR till more stable - continue empiric antibiotics for aspiration PNA ? add GNR coverage, defer to ID - Follow tracheal aspirate cultures and adjust antibiotic therapy based on VITO/ID - VAP bundle addressed - continue volume resuscitation while monitoring hemodynamics - Wean vasopressor support for MAP> 65 mmHg - Daily SAT's & SBT assessment - Sedation target for RASS 0 to -1 - Stress ulcer prophylaxis - VTE prophylaxis - Tube feedings as tolerated - continue systemic steroids with slow taper - resume chronic home medications per attending - With macrocytosis, and history of drug use, will continue empiric CIWA protocol - continue accuchecks with glycemic control for target glucose of 140-180 mg/dL - Continue bronchodilators with pulmonary hygiene per RT - Maintenance of sleep -wake cycle - Mobility as tolerated by hemodynamics - Schedule bronchodilators therapy - Influenza and pneumonia vaccination per protocol ..care plan discussed at length with RN/RT during team rounds PROGNOSIS GUARDED CONDITION: CRITICAL CODE STATUS: FULL CODE The high probability of a clinically significant, sudden or life-threatening deterioration of the [respiratory, neurology,] system(s) required my full and direct attention, intervention and personal management. The aggregate critical care time was [35] minutes without overlap. Time includes spent on; [x] Data Review and interpretation [x] Patient assessment and monitoring of vital signs [x] Documentation [x] Medication orders and management Subjective Date of service: 05/31/18 Principal diagnosis: Septic Shock (? LLL pneumonia); Ac on Ch hypoxic- hypercapnic Resp failure Interval history: Patient is seen today for: Septic Shock suspected LLL pneumonia, SOFA score > 2; Acute on chronic combined( hypoxic-hypercapnic) respiratory failure s/p ETT MVS; Severe AE COPD; AMS with Acute encephalopathy; Macrocytosis Seen and examined at bedside; 24hour events reviewed; nursing and respiratory care staff consulted; no adverse overnight events reported to me; sedated; very agitated and not following commands during daily SAT; No emesis or overt aspiration; no seizures; remains on 60% FiO2 and high peep Objective Vital Signs - 12hr 05/31/18 05/31/18 05/31/18 00:20 00:30 00:40 Temperature Pulse Rate 126 H 132 H 126 H Pulse Rate [ Apical] Pulse Rate [ From Monitor] Pulse Rate [ Left Dorsalis Pedis] Pulse Rate [ Right Dorsalis Pedis] Respiratory 30 H 31 H 30 H Rate Blood Pressure 101/53 115/66 115/66 O2 Sat by Pulse 97 100 100 Oximetry 05/31/18 05/31/18 05/31/18 00:50 01:00 01:10 Temperature Pulse Rate 122 H 123 H 119 H Pulse Rate [ Apical] Pulse Rate [ From Monitor] Pulse Rate [ Left Dorsalis Pedis] Pulse Rate [ Right Dorsalis Pedis] Respiratory 29 H 31 H 43 H Rate Blood Pressure 136/73 134/73 134/73 O2 Sat by Pulse 97 99 Oximetry 05/31/18 05/31/18 05/31/18 01:20 01:30 01:40 Temperature Pulse Rate 118 H 117 H 118 H Pulse Rate [ Apical] Pulse Rate [ From Monitor] Pulse Rate [ Left Dorsalis Pedis] Pulse Rate [ Right Dorsalis Pedis] Respiratory 34 H 28 H 30 H Rate Blood Pressure 133/73 137/73 137/73 O2 Sat by Pulse 98 100 100 Oximetry 05/31/18 05/31/18 05/31/18 01:50 02:00 02:10 Temperature Pulse Rate 113 H 116 H 117 H Pulse Rate [ Apical] Pulse Rate [ From Monitor] Pulse Rate [ Left Dorsalis Pedis] Pulse Rate [ Right Dorsalis Pedis] Respiratory 33 H 30 H 30 H Rate Blood Pressure 142/72 133/73 133/73 O2 Sat by Pulse 99 100 100 Oximetry 05/31/18 05/31/18 05/31/18 02:20 02:30 02:40 Temperature Pulse Rate 118 H 114 H 116 H Pulse Rate [ Apical] Pulse Rate [ From Monitor] Pulse Rate [ Left Dorsalis Pedis] Pulse Rate [ Right Dorsalis Pedis] Respiratory 30 H 33 H 28 H Rate Blood Pressure 133/73 136/71 136/71 O2 Sat by Pulse 100 100 99 Oximetry 05/31/18 05/31/18 05/31/18 02:50 03:00 03:10 Temperature Pulse Rate 117 H 115 H 114 H Pulse Rate [ Apical] Pulse Rate [ From Monitor] Pulse Rate [ Left Dorsalis Pedis] Pulse Rate [ Right Dorsalis Pedis] Respiratory 30 H 30 H 21 Rate Blood Pressure 139/75 144/75 144/75 O2 Sat by Pulse 100 99 99 Oximetry 05/31/18 05/31/18 05/31/18 03:20 03:30 03:40 Temperature Pulse Rate 110 H 112 H 109 H Pulse Rate [ Apical] Pulse Rate [ From Monitor] Pulse Rate [ Left Dorsalis Pedis] Pulse Rate [ Right Dorsalis Pedis] Respiratory 18 23 27 H Rate Blood Pressure 134/73 127/71 127/71 O2 Sat by Pulse 98 99 99 Oximetry 05/31/18 05/31/18 05/31/18 03:50 04:00 04:10 Temperature 98.8 F Pulse Rate 104 H 106 H 108 H Pulse Rate [ 117 H Apical] Pulse Rate [ 117 H From Monitor] Pulse Rate [ 116 H Left Dorsalis Pedis] Pulse Rate [ 116 H Right Dorsalis Pedis] Respiratory 25 H 22 25 H Rate Blood Pressure 133/70 134/71 134/71 O2 Sat by Pulse 98 98 99 Oximetry 05/31/18 05/31/18 05/31/18 04:20 04:30 04:40 Temperature Pulse Rate 112 H 113 H 112 H Pulse Rate [ Apical] Pulse Rate [ From Monitor] Pulse Rate [ Left Dorsalis Pedis] Pulse Rate [ Right Dorsalis Pedis] Respiratory 26 H 29 H 26 H Rate Blood Pressure 131/70 135/75 135/75 O2 Sat by Pulse 98 98 Oximetry 05/31/18 05/31/18 05/31/18 04:50 05:00 05:10 Temperature Pulse Rate 115 H 110 H 91 H Pulse Rate [ Apical] Pulse Rate [ From Monitor] Pulse Rate [ Left Dorsalis Pedis] Pulse Rate [ Right Dorsalis Pedis] Respiratory 21 18 20 Rate Blood Pressure 135/72 127/71 127/71 O2 Sat by Pulse 98 97 98 Oximetry 05/31/18 05/31/18 05/31/18 05:20 05:30 05:40 Temperature Pulse Rate 96 H 104 H 112 H Pulse Rate [ Apical] Pulse Rate [ From Monitor] Pulse Rate [ Left Dorsalis Pedis] Pulse Rate [ Right Dorsalis Pedis] Respiratory 26 H 29 H 30 H Rate Blood Pressure 128/73 137/73 137/73 O2 Sat by Pulse 98 97 99 Oximetry 05/31/18 05/31/18 05/31/18 05:50 06:00 06:10 Temperature Pulse Rate 108 H 115 H 109 H Pulse Rate [ Apical] Pulse Rate [ From Monitor] Pulse Rate [ Left Dorsalis Pedis] Pulse Rate [ Right Dorsalis Pedis] Respiratory 24 30 H 22 Rate Blood Pressure 121/70 121/70 136/79 O2 Sat by Pulse 97 100 97 Oximetry 05/31/18 05/31/18 05/31/18 06:20 06:30 06:40 Temperature Pulse Rate 111 H 159 H 112 H Pulse Rate [ Apical] Pulse Rate [ From Monitor] Pulse Rate [ Left Dorsalis Pedis] Pulse Rate [ Right Dorsalis Pedis] Respiratory 27 H 14 30 H Rate Blood Pressure 133/68 133/68 147/69 O2 Sat by Pulse 97 92 96 Oximetry 05/31/18 05/31/18 05/31/18 07:00 09:11 09:26 Temperature Pulse Rate 159 H 143 H 102 H Pulse Rate [ Apical] Pulse Rate [ From Monitor] Pulse Rate [ Left Dorsalis Pedis] Pulse Rate [ Right Dorsalis Pedis] Respiratory Rate Blood Pressure 119/61 171/88 147/78 O2 Sat by Pulse 91 Oximetry 05/31/18 11:52 Temperature Pulse Rate 80 Pulse Rate [ Apical] Pulse Rate [ From Monitor] Pulse Rate [ Left Dorsalis Pedis] Pulse Rate [ Right Dorsalis Pedis] Respiratory Rate Blood Pressure 115/56 O2 Sat by Pulse 97 Oximetry Constitutional: appears uncomfortable, other Eyes: non-icteric ENT: oropharynx moist, other (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) Neck: supple, no lymphadenopathy, no JVD, other (no thyromegaly) Effort: mildly labored Ascultation: Bilateral: diminished breath sounds, rales Percussion: Bilateral: not dull Cardiovascular: regular rate and rhythm, murmur noted (ANGELO) Gastrointestinal: normoactive bowel sounds, soft, non-tender, non-distended Integumentary: normal Extremities: no cyanosis, no edema, pink and warm, pulses normal Neurologic: non-focal exam (grossly) Psychiatric: other (unable to assess) CBC and BMP: 06/03/18 04:59 04/17/19 04:59 ABG, PT/INR, D-dimer: ABG POC ABG pH 7.424 (7.35-7.45) 05/31/18 04:23 POC ABG pCO2 39.9 (35-45) 05/31/18 04:23 POC ABG pO2 74 (80-105) L 05/31/18 04:23 POC ABG HCO3 26.2 (22-26 mml/L) 05/31/18 04:23 POC ABG Total CO2 27 (23-27mmol/L) 05/31/18 04:23 POC ABG O2 Sat 95 05/31/18 04:23 PT/INR, D-dimer D-Dimer 1062.49 ng/mlDDU (0-234) H 05/28/18 13:13 Abnormal lab findings: Abnormal Labs 05/28/18 05/28/18 05/28/18 13:13 13:13 13:13 Hgb 9.7 L MCV 77 L MCH 23 L MCHC 29 L RDW 19.2 H Plt Count Lymph % (Auto) 8.5 L [place] % (Auto) 11.3 H Lymph # 0.8 L [place] # 1.1 H Seg Neutrophils % 79.8 H Seg Neuts % (Manual) Lymphocytes % (Manual) Nucleated RBC % Seg Neutrophils # Man Lymphocytes # (Manual) D-Dimer 1062.49 H POC ABG pH POC ABG pCO2 POC ABG pO2 Sodium Chloride BUN 24 H Creatinine 0.6 L Glucose POC Glucose Calcium Albumin 3.5 L Ur Specific [place] 05/28/18 05/28/18 05/28/18 13:22 14:50 16:05 Hgb MCV MCH MCHC RDW Plt Count Lymph % (Auto) [place] % (Auto) Lymph # [place] # Seg Neutrophils % Seg Neuts % (Manual) Lymphocytes % (Manual) Nucleated RBC % Seg Neutrophils # Man Lymphocytes # (Manual) D-Dimer POC ABG pH 7.249 L 7.126 L POC ABG pCO2 68.9 H POC ABG pO2 77 L Sodium Chloride 109.1 H BUN 22 H Creatinine 0.5 L Glucose POC Glucose Calcium 7.5 L Albumin Ur Specific [place] 05/28/18 05/28/18 05/28/18 17:57 18:48 22:47 Hgb MCV MCH MCHC RDW Plt Count Lymph % (Auto) [place] % (Auto) Lymph # [place] # Seg Neutrophils % Seg Neuts % (Manual) Lymphocytes % (Manual) Nucleated RBC % Seg Neutrophils # Man Lymphocytes # (Manual) D-Dimer POC ABG pH 7.195 L 7.312 L POC ABG pCO2 57.5 H POC ABG pO2 57 L 73 L Sodium Chloride BUN Creatinine Glucose POC Glucose Calcium Albumin Ur Specific [place] > 1.030 H 05/30/18 05/30/18 05/31/18 06:10 10:42 04:23 Hgb MCV MCH MCHC RDW Plt Count Lymph % (Auto) [place] % (Auto) Lymph # [place] # Seg Neutrophils % Seg Neuts % (Manual) Lymphocytes % (Manual) Nucleated RBC % Seg Neutrophils # Man Lymphocytes # (Manual) D-Dimer POC ABG pH 7.214 L 7.253 L POC ABG pCO2 64.5 H 56.4 H POC ABG pO2 78 L 74 L Sodium Chloride BUN Creatinine Glucose POC Glucose Calcium Albumin Ur Specific [place] 05/31/18 05/31/18 05/31/18 06:30 08:50 08:50 Hgb 9.3 L MCV 78 L MCH 23 L MCHC 29 L RDW 19.8 H Plt Count 131 L Lymph % (Auto) [place] % (Auto) Lymph # [place] # Seg Neutrophils % Seg Neuts % (Manual) 98.0 H Lymphocytes % (Manual) 2.0 L Nucleated RBC % 1.0 H Seg Neutrophils # Man 8.4 H Lymphocytes # (Manual) 0.2 L D-Dimer POC ABG pH POC ABG pCO2 POC ABG pO2 Sodium 153 H D Chloride 117.4 H BUN 18 H Creatinine 0.4 L Glucose 159 H POC Glucose 146 H Calcium 8.3 L Albumin Ur Specific [place] Chest x-ray: image reviewed (ETT in good position; bibasilar infiltrates) Allied health notes reviewed: nursing
[2018-05-31] MEDS ORDERED: GENTAMICIN 300 MG in NACL 0.9% 100 ML IV SCH (13:00)
--- NOTE | 2018-05-31 14:04 | Progress Note ---
Assessment and Plan Cultures: 05/28/2018 blood culture: no growth 05/28/2018 Resp culture: E. coli, Pseudomonas aeruginosa 05/31/2018 blood culture: in process A/P: 58-year-old female with COPD with chronic respiratory failure on home oxygen admitted with shortness of breath and confusion: 1) Septic shock, likely secondary to left lower lobe pneumonia: Given severe pneumonia requiring mechanical ventilation and ICU stay. Off pressors now. 2) Acute on chronic respiratory failure with underlying COPD: On mechanical ventilation 3) Acute encephalopathy: likely metabolic. 4) Spinal hardware noted on imaging, no concern for infection at present. Recs: Given Cefepime and Zosyn resistant Pseudomonas, agree with switch to Levofloxacin and Gentamicin no need for Vancomycin anticipate stopping Gentamicin tomorrow Raul Gupta MD [facility] C: [phone] O: [phone] F: [phone] Subjective Date of service: 05/31/18 Interval history: Fevers +. Discussed with RN. Off pressors. Remains on sedation and vent. Objective - Exam Narrative Exam: Physical Exam: Constitutional: sedated, intubated Head, Ears, Nose: Normocephalic, atraumatic. External ears, nose normal Eyes: Conjunctivae/corneas clear. No icterus. No ptosis. Neck: Supple, no meningeal signs Oral: intubated Cardiovascular: S1, S2 normal. Respiratory: Good air entry, clear to auscultation bilaterally GI: Soft, non-tender; bowel sounds normal. No peritoneal signs Musculoskeletal: No pedal edema, no cyanosis. Skin: No rash or abscess Hem/Lymphatic: No palpable cervical or supraclavicular nodes. No lymphangitis Psych: no agitation Neurological: sedated, intubated, on vent - Constitutional Vitals: Vital Signs Temp Pulse Resp BP Pulse Ox 100.3 F H 130 H 30 H 116/58 95 05/31/18 12:00 05/31/18 13:57 05/31/18 13:45 05/31/18 12:40 05/31/18 12:40 Temperature -Last 24 Hours Temperature 100.3 F Temperature 101.3 F Temperature 98.8 F Temperature 98.4 F Temperature 99.5 F Temperature 99.4 F - Labs CBC & Chem 7: 05/31/18 08:50 05/31/18 08:50 Labs: Abnormal lab results 05/31/18 05/31/18 05/31/18 Range/Units 04:23 06:30 08:50 Hgb 9.3 L (10.1-14.3) gm/dl MCV 78 L (79-97) fl MCH 23 L (28-32) pg MCHC 29 L (30-34) % RDW 19.8 H (13.2-15.2) % Plt Count 131 L (140-440) K/mm3 Seg Neuts % (Manual) 98.0 H (40.0-70.0) % Lymphocytes % (Manual) 2.0 L (13.4-35.0) % Nucleated RBC % 1.0 H (0.0-0.9) % Seg Neutrophils # Man 8.4 H (1.8-7.7) K/mm3 Lymphocytes # (Manual) 0.2 L (1.2-5.4) K/mm3 POC ABG pO2 74 L (80-105) Sodium (137-145) mmol/L Chloride (98-107) mmol/L BUN (7-17) mg/dL Creatinine (0.7-1.2) mg/dL Glucose (65-100) mg/dL POC Glucose 146 H (70-105) Calcium (8.4-10.2) mg/dL 05/31/18 Range/Units 08:50 Hgb (10.1-14.3) gm/dl MCV (79-97) fl MCH (28-32) pg MCHC (30-34) % RDW (13.2-15.2) % Plt Count (140-440) K/mm3 Seg Neuts % (Manual) (40.0-70.0) % Lymphocytes % (Manual) (13.4-35.0) % Nucleated RBC % (0.0-0.9) % Seg Neutrophils # Man (1.8-7.7) K/mm3 Lymphocytes # (Manual) (1.2-5.4) K/mm3 POC ABG pO2 (80-105) Sodium 153 H D (137-145) mmol/L Chloride 117.4 H (98-107) mmol/L BUN 18 H (7-17) mg/dL Creatinine 0.4 L (0.7-1.2) mg/dL Glucose 159 H (65-100) mg/dL POC Glucose (70-105) Calcium 8.3 L (8.4-10.2) mg/dL
[2018-05-31] MEDS: LOVENOX SUB-Q SCH (21:56)
[2018-06-01] MEDS: DIPRIVAN 10 MG/ML 1,000 MG/100 ML BOTTLE IV SCH ×3 (01:06→19:28)
[2018-06-01] MEDS: FREE WATER PO SCH ×7 (03:00→22:07)
[2018-06-01] MEDS: SOLU-Medrol IV SCH ×3 (05:32→22:05)
[2018-06-01] MEDS: fentaNYL DRIP Premix 2,000 MCG/100 ML BAG IV SCH ×3 (05:33→18:30)
[2018-06-01] MEDS: NACL 0.9% 1000 ML 1,000 ML IV SCH (05:37)
[2018-06-01 06:20] LABS: Mean Corpuscular HGB Conc 29 % (30-34); Mean Corpuscular Volume 77 fl (79-97); Platelet Count 122 K/mm3 (140-440); Red Blood Count 4.35 M/mm3 (3.65-5.03)
[2018-06-01 06:22] LABS: Hematocrit 33.5 % (30.3-42.9); Hemoglobin 9.8 gm/dl (10.1-14.3); Red Cell Distribution Width 20.1 % (13.2-15.2)
[2018-06-01 06:44] LABS: BUN/Creatinine Ratio 60; Blood Urea Nitrogen 18 mg/dL (7-17); Calcium 8.5 mg/dL (8.4-10.2); Hemolysis Index 0
[2018-06-01] MEDS: PULMICORT IH SCH ×2 (07:48→19:48)
[2018-06-01] MEDS: DUONEB *Not for PRN Use IH SCH ×4 (07:48→23:43)
[2018-06-01] MEDS: PREVACID SOLUTAB FEEDTUBE SCH (09:17)
[2018-06-01] MEDS: LOPRESSOR PO SCH ×2 (09:18→22:05)
[2018-06-01] MEDS: LIORESAL PO SCH ×2 (09:19→22:05)
[2018-06-01] MEDS: BUSPAR PO SCH ×2 (09:19→22:05)
[2018-06-01] MEDS: NORVASC PO SCH (09:20)
--- NOTE | 2018-06-01 09:20 | Progress Note ---
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 According to chart, pt has not been using her O2 and started hallucinating. She was intubated in the ED. She was also hypotensive in the ED and started on Vasopressor/Levophed * CTA chest IMPRESSION: 1. Study degraded by artifact created by retained hardware in the thoracic spine and by motion artifact. 2. No evidence of central pulmonary artery emboli. However, segmental pulmonary artery emboli could be missed or overcalled due to significant artifact. 3. Complete consolidation left lower lobe with air bronchograms and volume loss consistent with atelectasis. There appears to be opacification of a portion of the left lower lobe bronchus. 4. Tip of the endotracheal tube projected in satisfactory position. 5. Cardiomegaly. 6. IVC filter. 7. Prominent kyphosis of the thoracic spine with extensive instrumentation with retained hardware. * Abdominal 1 view XRAY IMPRESSION: Nasogastric tube is terminating in the stomach. Mild degree left pleural effusion * pCXR FINDINGS: Heart: Prominent cardiac silhouette. Mediastinum/Vessels: Prominent central vessels. Lungs/Pleural space: Left lung base airspace consolidation. Bony thorax: No acute osseous abnormality. Life support devices: The endotracheal tube tip is obscured by hardware in the thoracic spine, but likely projects approximately 4 cm superior to the carlos manuel. IMPRESSION: Prominent cardiac silhouette. Left lung base airspace consolidatio n -AMS with Acute encephalopathy, prior records show a long history of similar presentations and PCP toxicity: I ordered UDS -Acute on chronic combined respiratory failure s/p ETT MV: daily weaning attempt, consulted Signwriter/Dehydrogenation Operator Head -Severe AE COPD: treat with iv steriods, abx, nebs around the clock -Hypotension due to circulatory shock possible septic shock from LLL pneumonia: off Vasopressor -Septic Shock suspected LLL Pseudomonas/E.coli pneumonia: treat with ivf, abx, ID following, trachea aspirate growing Gram negative==> PSA resistant to Aztreonam/zosyn/cefepime/fortaz but sensitive to cipro/gent/levaquin/tobramycin; E. coli has not resistant, changed antibiotics to Levaquin and Gentamicin on Friday. ID may stop the iv Gent today. OFF Vasopressor since Friday -DVT prophylaxis: sq Lovenox -Disposition: continue Critcal care, trying to wean off pressors and vent but still febrile full code CCT 31 minutes History Interval history: Patient was seen and examined. Follow-up on current diagnosis of respiratory failure, intubated and sedated. Imaging, nursing note, chart, labs and old chart reviewed. Hospitalist Physical - Physical exam Narrative exam: Gen: critical ill, intubated HEENT: NCAT, pupils reactive, OP ETT in place Neck: supple, no adenopathy, no thyromegaly, no JVD CVS/Heart: regular tachycardia, normal S1S2, pulses present bilaterally Chest/Lungs: diminished bs bilateral Symmetrical chest expansion, good air entry bilaterally GI/Abdomen: soft, NTND, good bowel sounds, no guarding or rebound /Bladder: no suprapubic tenderness, no CVA or paraspinal tenderness Extermity/Skin: no c/c/e, no obvious rash MSK: sedated Neuro: sedated Psych: sedated - Constitutional Vitals: Temp Pulse Resp BP Pulse Ox 98.9 F 98 H 24 117/63 96 06/01/18 08:00 06/01/18 09:00 06/01/18 09:00 06/01/18 09:00 06/01/18 09:00 Results - Labs CBC & Chem 7: 06/01/18 05:50 06/01/18 05:50 Labs: Laboratory Last Values WBC 10.0 K/mm3 (4.5-11.0) 06/01/18 05:50 RBC 4.35 M/mm3 (3.65-5.03) 06/01/18 05:50 Hgb 9.8 gm/dl (10.1-14.3) L 06/01/18 05:50 Hct 33.5 % (30.3-42.9) 06/01/18 05:50 MCV 77 fl (79-97) L 06/01/18 05:50 MCH 23 pg (28-32) L 06/01/18 05:50 MCHC 29 % (30-34) L 06/01/18 05:50 RDW 20.1 % (13.2-15.2) H 06/01/18 05:50 Plt Count 122 K/mm3 (140-440) L 06/01/18 05:50 Lymph % (Auto) 8.5 % (13.4-35.0) L 05/28/18 13:13 Crockett % (Auto) 11.3 % (0.0-7.3) H 05/28/18 13:13 Eos % (Auto) 0.0 % (0.0-4.3) 05/28/18 13:13 Baso % (Auto) 0.4 % (0.0-1.8) 05/28/18 13:13 Lymph # 0.8 K/mm3 (1.2-5.4) L 05/28/18 13:13 Crockett # 1.1 K/mm3 (0.0-0.8) H 05/28/18 13:13 Eos # 0.0 K/mm3 (0.0-0.4) 05/28/18 13:13 Baso # 0.0 K/mm3 (0.0-0.1) 05/28/18 13:13 Add Manual Diff Complete 05/31/18 08:50 Total Counted 100 05/31/18 08:50 Seg Neutrophils % Family Medicine Physician 05/31/18 08:50 Seg Neuts % (Manual) 98.0 % (40.0-70.0) H 05/31/18 08:50 Band Neutrophils % 0 % 05/31/18 08:50 Lymphocytes % (Manual) 2.0 % (13.4-35.0) L 05/31/18 08:50 Reactive Lymphs % (Man) 0 % 05/31/18 08:50 Monocytes % (Manual) 0 % (0.0-7.3) 05/31/18 08:50 Eosinophils % (Manual) 0 % (0.0-4.3) 05/31/18 08:50 Basophils % (Manual) 0 % (0.0-1.8) 05/31/18 08:50 Metamyelocytes % 0 % 05/31/18 08:50 Myelocytes % 0 % 05/31/18 08:50 Promyelocytes % 0 % 05/31/18 08:50 Blast Cells % 0 % 05/31/18 08:50 Nucleated RBC % 1.0 % (0.0-0.9) H 05/31/18 08:50 Seg Neutrophils # 7.7 K/mm3 (1.8-7.7) 05/28/18 13:13 Seg Neutrophils # Man 8.4 K/mm3 (1.8-7.7) H 05/31/18 08:50 Band Neutrophils # 0.0 K/mm3 05/31/18 08:50 Lymphocytes # (Manual) 0.2 K/mm3 (1.2-5.4) L 05/31/18 08:50 Abs React Lymphs (Man) 0.0 K/mm3 05/31/18 08:50 Monocytes # (Manual) 0.0 K/mm3 (0.0-0.8) 05/31/18 08:50 Eosinophils # (Manual) 0.0 K/mm3 (0.0-0.4) 05/31/18 08:50 Basophils # (Manual) 0.0 K/mm3 (0.0-0.1) 05/31/18 08:50 Metamyelocytes # 0.0 K/mm3 05/31/18 08:50 Myelocytes # 0.0 K/mm3 05/31/18 08:50 Promyelocytes # 0.0 K/mm3 05/31/18 08:50 Blast Cells # 0.0 K/mm3 05/31/18 08:50 WBC Morphology Not Reportable 05/31/18 08:50 Hypersegmented Neuts Not Reportable 05/31/18 08:50 Hyposegmented Neuts Not Reportable 05/31/18 08:50 Hypogranular Neuts Not Reportable 05/31/18 08:50 Smudge Cells Not Reportable 05/31/18 08:50 Toxic Granulation Not Reportable 05/31/18 08:50 Toxic Vacuolation Not Reportable 05/31/18 08:50 Dohle Bodies Not Reportable 05/31/18 08:50 Pelger-Huet Anomaly Not Reportable 05/31/18 08:50 Neha Rods Not Reportable 05/31/18 08:50 Platelet Estimate Consistent w auto 05/31/18 08:50 Clumped Platelets Not Reportable 05/31/18 08:50 Plt Clumps, EDTA Not Reportable 05/31/18 08:50 Large Platelets Not Reportable 05/31/18 08:50 Giant Platelets Not Reportable 05/31/18 08:50 Platelet Satelliting Not Reportable 05/31/18 08:50 Plt Morphology Comment Not Reportable 05/31/18 08:50 RBC Morphology Not Reportable 05/31/18 08:50 Dimorphic RBCs Not Reportable 05/31/18 08:50 Polychromasia Few 05/31/18 08:50 Hypochromasia Few 05/31/18 08:50 Poikilocytosis Not Reportable 05/31/18 08:50 Anisocytosis Not Reportable 05/31/18 08:50 Microcytosis Not Reportable 05/31/18 08:50 Macrocytosis Not Reportable 05/31/18 08:50 Spherocytes Not Reportable 05/31/18 08:50 Pappenheimer Bodies Not Reportable 05/31/18 08:50 Sickle Cells Not Reportable 05/31/18 08:50 Target Cells Not Reportable 05/31/18 08:50 Tear Drop Cells Not Reportable 05/31/18 08:50 Ovalocytes Not Reportable 05/31/18 08:50 Stomatocytes Rare 05/31/18 08:50 Helmet Cells Not Reportable 05/31/18 08:50 Benoit-[place] Bodies Not Reportable 05/31/18 08:50 Davenport Rings Not Reportable 05/31/18 08:50 Damien Cells Not Reportable 05/31/18 08:50 Bite Cells Not Reportable 05/31/18 08:50 Crenated Cell Not Reportable 05/31/18 08:50 Elliptocytes Not Reportable 05/31/18 08:50 Acanthocytes (Spur) Not Reportable 05/31/18 08:50 Rouleaux Not Reportable 05/31/18 08:50 Hemoglobin C Crystals Not Reportable 05/31/18 08:50 Schistocytes Not Reportable 05/31/18 08:50 Malaria parasites Not Reportable 05/31/18 08:50 Hernan Bodies Not Reportable 05/31/18 08:50 Hem Pathologist Commnt No 05/31/18 08:50 D-Dimer 1062.49 ng/mlDDU (0-234) H 05/28/18 13:13 POC ABG pH 7.465 (7.35-7.45) H 06/01/18 03:32 POC ABG pCO2 40.1 (35-45) 06/01/18 03:32 POC ABG pO2 74 (80-105) L 05/31/18 04:23 POC ABG HCO3 28.8 (22-26 mml/L) 06/01/18 03:32 POC ABG Total CO2 30 (23-27mmol/L) 06/01/18 03:32 POC ABG O2 Sat 85 06/01/18 03:32 POC ABG Base Excess 5 ((-2) - (+3)mmol/L) 06/01/18 03:32 FiO2 65 % 06/01/18 03:32 Sodium 152 mmol/L (137-145) H 06/01/18 05:50 Potassium 3.7 mmol/L (3.6-5.0) 06/01/18 05:50 Chloride 113.7 mmol/L (98-107) H 06/01/18 05:50 Carbon Dioxide 29 mmol/L (22-30) 06/01/18 05:50 Anion Gap 13 mmol/L 06/01/18 05:50 BUN 18 mg/dL (7-17) H 06/01/18 05:50 Creatinine 0.3 mg/dL (0.7-1.2) L 06/01/18 05:50 Estimated GFR > 60 ml/min 06/01/18 05:50 BUN/Creatinine Ratio 60 % 06/01/18 05:50 Glucose 146 mg/dL (65-100) H 06/01/18 05:50 POC Glucose 146 (70-105) H 06/01/18 05:51 Lactic Acid 0.90 mmol/L (0.7-2.0) 05/28/18 14:50 Calcium 8.5 mg/dL (8.4-10.2) 06/01/18 05:50 Magnesium 2.40 mg/dL (1.7-2.3) H 06/01/18 05:50 Total Bilirubin 0.30 mg/dL (0.1-1.2) 05/28/18 13:13 AST 23 units/L (5-40) 05/28/18 13:13 ALT 11 units/L (7-56) 05/28/18 13:13 Alkaline Phosphatase 96 units/L (35-129) 05/28/18 13:13 Troponin T < 0.010 ng/mL (0.00-0.029) 05/28/18 13:13 Total Protein 6.6 g/dL (6.3-8.2) 05/28/18 13:13 Albumin 3.5 g/dL (3.9-5) L 05/28/18 13:13 Albumin/Globulin Ratio 1.1 % 05/28/18 13:13 Urine Color Yellow (Yellow) 05/28/18 17:57 Urine Turbidity Clear (Clear) 05/28/18 17:57 Urine pH 6.0 (5.0-7.0) 05/28/18 17:57 Ur Specific [place] > 1.030 (1.003-1.030) H 05/28/18 17:57 Urine Protein 100 mg/dl mg/dL (Negative) 05/28/18 17:57 Urine Glucose (UA) Neg mg/dL (Negative) 05/28/18 17:57 Urine Ketones 20 mg/dL (Negative) 05/28/18 17:57 Urine Blood Sm (Negative) 05/28/18 17:57 Urine Nitrite Neg (Negative) 05/28/18 17:57 Urine Bilirubin Neg (Negative) 05/28/18 17:57 Urine Urobilinogen 2.0 mg/dL (<2.0) 05/28/18 17:57 Ur Leukocyte Esterase Neg (Negative) 05/28/18 17:57 Urine WBC (Auto) 1.0 /HPF (0.0-6.0) 05/28/18 17:57 Urine RBC (Auto) 2.0 /HPF (0.0-6.0) 05/28/18 17:57 U Epithel Cells (Auto) < 1.0 /HPF (0-13.0) 05/28/18 17:57 Urine Mucus Few /HPF 05/28/18 17:57 Random Gentamicin 0.4 ug/mL (0.0-10.0) 06/01/18 05:50 Vancomycin Trough 7.2 ug/mL (5.0-20.0) 05/31/18 09:39 Urine Opiates Screen Presumptive negative 05/29/18 23:50 Urine Methadone Screen Presumptive negative 05/29/18 23:50 Ur Barbiturates Screen Presumptive negative 05/29/18 23:50 Ur Phencyclidine Scrn Presumptive negative 05/29/18 23:50 Ur Amphetamines Screen Presumptive negative 05/29/18 23:50 U Benzodiazepines Scrn Presumptive negative 05/29/18 23:50 Urine Cocaine Screen Presumptive negative 05/29/18 23:50 U Marijuana (THC) Screen Presumptive negative 05/29/18 23:50 Drugs of Abuse Note Disclamer 05/29/18 23:50 Active Medications - Current Medications Current Medications: Generic Name Dose Route Start Last Admin Trade Name Freq PRN Reason Stop Dose Admin Acetaminophen 650 mg 05/31/18 09:02 05/31/18 09:26 Tylenol FEEDTUBE 650 mg Q6H PRN Administration Non Cardiac Pain or Temp>100.5 Albuterol/Ipratropium 1 ampul 06/01/18 00:00 06/01/18 07:48 Duoneb *Not For Prn Use* IH Not Given Q8HRT [facility] Amlodipine Besylate 10 mg 05/29/18 10:00 05/31/18 09:11 Norvasc PO 10 mg DAILY [facility] Administration Lipase/Protease/Amylase 1 each 05/28/18 22:[address] 10,500 Unit FEEDTUBE PRN PRN For Clogged Feeding Tube Baclofen 10 mg 05/28/18 23:00 05/31/18 21:53 Lioresal PO 10 mg BID DOMINICK Administration Budesonide 0.5 mg 05/28/18 22:45 06/01/18 07:48 Pulmicort IH Not Given Q12HRT [facility] Buspirone HCl 5 mg 05/28/18 23:00 05/31/18 21:49 Buspar PO 5 mg BID DOMINICK Administration Enoxaparin Sodium 40 mg 05/29/18 22:00 05/31/18 21:56 Lovenox SUB-Q 40 mg QDAY@2200 DOMINICK Administration Norepinephrine 4 mg in 250 mls @ 7.5 mls/hr 05/28/18 19:00 05/30/18 14:45 Levophed Drip 4 Mg/Ns 250 Ml IV 0 mcg/min TITR DOMINICK 0 mls/hr Titration Protocol 2 MCG/MIN Fentanyl Citrate 2,000 mcg in 100 mls @ 3.969 mls/hr 05/28/18 21:00 06/01/18 05:33 Fentanyl Drip Premix IV 3 mcg/kg/hr TITR DOMINICK 11.907 mls/hr Administration Protocol 1 MCG/KG/HR Sodium Chloride 1,000 mls @ 100 mls/hr 05/28/18 23:00 06/01/18 05:37 Nacl 0.9% 1000 Ml IV 100 mls/hr DIRECT DOMINICK Administration Propofol 1,000 mg in 100 mls @ 2.526 mls/hr 05/30/18 02:07 06/01/18 07:53 Diprivan 10 Mg/Ml IV 30 mcg/kg/min TITR DOMINICK 15.156 mls/hr Administration Protocol 5 MCG/KG/MIN Levofloxacin/Dextrose 750 mg in 150 mls @ 100 mls/hr 05/31/18 11:00 05/31/18 11:48 Levaquin 750mg/150ml IV 100 mls/hr Q24HR DOMINICK Administration Protocol Gentamicin Sulfate 300 mg/ 107.5 mls @ 200 mls/hr 05/31/18 13:00 05/31/18 13:32 Sodium Chloride IV 200 mls/hr Q24H DOMINICK Administration Lansoprazole 30 mg 05/30/18 10:00 05/31/18 09:11 Prevacid Solutab FEEDTUBE 30 mg QDAY DOMINICK Administration Lisinopril 10 mg 05/29/18 10:00 05/31/18 09:26 Zestril PO 10 mg QDAY DOMINICK Administration Lorazepam 2 mg 05/31/18 08:39 Ativan IV Q1H PRN CIWA-Ar 8-15 Lorazepam 4 mg 05/31/18 08:39 Ativan IV Q1H PRN CIWA-Ar 16-25 Lorazepam 4 mg 05/31/18 08:39 Ativan IV Q15MIN PRN CIWA-Ar >25 Methylprednisolone Sodium Succinate 60 mg 05/31/18 14:00 06/01/18 05:32 Solu-Medrol IV 60 mg Q8HR DOMINICK Administration Metoprolol Tartrate 100 mg 05/31/18 10:00 05/31/18 20:52 Lopressor PO 100 mg BID DOMINICK Administration Quetiapine Fumarate 100 mg 05/30/18 14:00 05/31/18 21:56 Seroquel PO 100 mg BID DOMINICK Administration Simple Syrup 15 ml 05/28/18 22:45 Simple Syrup FEEDTUBE PRN PRN Hypoglycemia Simple Syrup 30 ml 05/28/18 22:45 Simple Syrup FEEDTUBE PRN PRN Hypoglycemia Sodium Bicarbonate 325 mg 05/28/18 22:45 Sodium Bicarbonate FEEDTUBE PRN PRN For Clogged Feeding Tube Sodium Chloride 10 ml 05/29/18 10:00 05/31/18 22:00 Sodium Chloride Flush Syringe 10 Ml IV 10 ml BID DOMINICK Administration Sodium Chloride 10 ml 05/28/18 22:45 05/31/18 13:32 Sodium Chloride Flush Syringe 10 Ml IV 10 ml PRN PRN Administration LINE FLUSH Nutrition/Malnutrition Assess - Dietary Evaluation Nutrition/Malnutrition Findings: Nutrition Notes Start: 05/29/18 09:32 Freq: Status: Active Protocol: Document 05/29/18 09:32 GIANFRANCO (Rec: 05/29/18 09:38 GIANFRANCO [email or web address]) Nutrition Notes Need for Assessment generated from: MD Order Initial or Follow up Assessment Current Diagnosis COPD,Hypertension,Respiratory Failure Other Pertinent Diagnosis COPD exacerbation, End-stage lung Dz Current Diet NPO Labs/Tests Reviewed Pertinent Medications Solumedrol, Levophed gtt Height 5 ft Weight 79.379 kg [place] Body Weight (kg) 45.45 BMI 34.2 Weight Status Obese Subjective/Other Information RD consulted for TF. Pt in ED at this time and on vent support. Burn Absent Trauma Absent #1 Nutrition Diagnosis Inadequate oral intake [facility] As Evidenced by Signs and Symptoms pt NPO Is patient on ventilator? Yes Is Patient Ambulatory and/or Out of Bed No REE-([place]-confined to bed) 1547.160 Calculation Used for Recommendations 65-70% energy needs Additional Notes Pro needs 2g/kg IBW: 91g/day Fluid needs 1ml/kcal Nutrition Intervention Nutrition Support: Vital High Protein at 45ml/hr. Provide 50ml water flush q4h . Kcal 1,080 Protein (gm) 95 Carbohydrates (gm) 121 Fat (gm) 25 Fluid (mL) 903 Fiber (gm) 0 Goal #1 TF tolerance Goal #2 TF to meet 65-70% energy and 80-100% pro needs Anticipated Discharge Needs: Unable to identify at this time Follow-Up By: 06/01/18 Additional Comments F/U: new TF, vent status
[2018-06-01] MEDS: SODIUM CHLORIDE FLUSH SYRINGE 10 ML IV SCH (09:21)
[2018-06-01] MEDS: ZESTRIL PO SCH (09:21)
[2018-06-01] MEDS: LEVAQUIN 750MG/150ML 750 MG/150 ML BAG IV SCH (09:25)
--- NOTE | 2018-06-01 10:05 | Progress Note ---
Assessment and Plan -Septic Shock suspected LLL pneumonia, SOFA score >2 -Acute on chronic combined( hypoxic-hypercapnic) respiratory failure s/p ETT MVS -Severe AE COPD -AMS with Acute encephalopathy -Macrocytosis -GNR pneumonia, probably secondary to aspiration -Acute encephalaopthy( toxic, metabolic) -History of substance abuse -Thrombocytopenia -Continue full MVS -Adjust ventilator settings for better gas-exchange, minute ventilation adjusted -Wean supplemental oxygen to keep O2 sats 88-90% -Lung protective strategies -Oxygen restrictive strategies -Daily ABGs/CXR -Antibiotics for aspiration PNA, add GNR coverage, defer ID -Follow tracheal aspirate cultures and adjust antibiotic therapy based on VITO/ID -VAP bundle addressed -Volume resuscitation. Monitor hemodynamics -Wean vasopressor support for MAP>65 -Daily SAT's & SBT's -Sedation target for RASS 0 to -1 -Stress ulcer prophylaxis -VTE prophylaxis -Tube feedings -Steroid taper -Chronic home medications -With macrocytosis, and history of drug use, will empirically initiate CIWA protocol -Aspiration precautions -Accuchecks with glycemic control. Target glucose of 140-180 mg/dL -Continue bronchodilators with pulmonary hygiene per RT -Maintenance of sleep -wake cycle -Mobility as tolerated by hemodynamics -Schedule bronchodilators therapy -Influenza and pneumonia vaccination per protocol ..care plan discussed at length with RN/RT at the bedside ..care plan discussed at length with RN/RTat the bedside PROGNOSIS GUARDED CONDITION: CRITICAL CODE STATUS: FULL CODE The high probability of a clinically significant, sudden or life-threatening deterioration of the [respiratory, neurology,] system(s) required my full and direct attention, intervention and personal management. The aggregate critical care time was [35] minutes without overlap. Time includes spent on; [x] Data Review and interpretation [x] Patient assessment and monitoring of vital signs [x] Documentation [x] Medication orders and management Subjective Date of service: 06/01/18 Interval history: Patient is seen today for: Septic Shock suspected LLL pneumonia, SOFA score > 2; Acute on chronic combined( hypoxic-hypercapnic) respiratory failure s/p ETT MVS; Severe AE COPD; AMS with Acute encephalopathy; Macrocytosis Seen and examined at bedside; 24hour events reviewed; nursing and respiratory care staff consulted; no adverse overnight events reported to me; sedated; very agitated and not following comands; No emesis or overt aspiration; no seizures; remains on full mechanical ventilatory support, FIO2 70% PEEP 10 Objective - Exam Narrative Exam: Constitutional: appears uncomfortable, other Eyes: non-icteric ENT: oropharynx moist, other (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) Neck: supple, no lymphadenopathy, no JVD, other (no thyromegaly) Effort: mildly labored Ascultation: Bilateral: diminished breath sounds, rales Percussion: Bilateral: not dull Cardiovascular: regular rate and rhythm, murmur noted (ANGELO) Gastrointestinal: normoactive bowel sounds, soft, non-tender, non-distended Integumentary: normal Extremities: no cyanosis, no edema, pink and warm, pulses normal Neurologic: non-focal exam (grossly) Psychiatric: other (unable to assess) Vital Signs - 12hr 05/31/18 05/31/18 05/31/18 22:10 22:20 22:30 Temperature Pulse Rate 88 83 83 Pulse Rate [ Apical] Pulse Rate [ From Monitor] Respiratory 30 H 30 H 26 H Rate Blood Pressure 122/69 124/63 126/65 O2 Sat by Pulse 97 97 96 Oximetry 05/31/18 05/31/18 05/31/18 22:40 22:50 23:00 Temperature Pulse Rate 83 82 82 Pulse Rate [ Apical] Pulse Rate [ From Monitor] Respiratory 30 H 30 H 30 H Rate Blood Pressure 126/65 119/65 121/67 O2 Sat by Pulse 95 94 95 Oximetry 05/31/18 05/31/18 05/31/18 23:10 23:14 23:18 Temperature 99.1 F Pulse Rate 86 96 H Pulse Rate [ Apical] Pulse Rate [ From Monitor] Respiratory 29 H 30 H Rate Blood Pressure 121/67 119/61 O2 Sat by Pulse 97 96 Oximetry 05/31/18 05/31/18 05/31/18 23:20 23:30 23:40 Temperature Pulse Rate 94 H 90 101 H Pulse Rate [ Apical] Pulse Rate [ From Monitor] Respiratory 29 H 30 H 30 H Rate Blood Pressure 119/61 117/67 117/67 O2 Sat by Pulse 97 98 98 Oximetry 05/31/18 06/01/18 06/01/18 23:50 00:00 00:10 Temperature Pulse Rate 97 H 87 88 Pulse Rate [ 84 Apical] Pulse Rate [ 85 From Monitor] Respiratory 30 H 29 H 30 H Rate Blood Pressure 125/72 132/64 132/64 O2 Sat by Pulse 98 98 96 Oximetry 06/01/18 06/01/18 06/01/18 00:20 00:30 00:40 Temperature Pulse Rate 91 H 83 85 Pulse Rate [ Apical] Pulse Rate [ From Monitor] Respiratory 30 H 30 H 30 H Rate Blood Pressure 126/63 119/66 119/66 O2 Sat by Pulse 97 97 96 Oximetry 06/01/18 06/01/18 06/01/18 00:50 01:00 01:10 Temperature Pulse Rate 91 H 84 97 H Pulse Rate [ Apical] Pulse Rate [ From Monitor] Respiratory 31 H 30 H 30 H Rate Blood Pressure 122/64 119/62 119/62 O2 Sat by Pulse 97 94 96 Oximetry 06/01/18 06/01/18 06/01/18 01:20 01:30 01:40 Temperature Pulse Rate 90 84 86 Pulse Rate [ Apical] Pulse Rate [ From Monitor] Respiratory 27 H 30 H 30 H Rate Blood Pressure 118/66 118/68 118/68 O2 Sat by Pulse 96 93 Oximetry 06/01/18 06/01/18 06/01/18 01:50 02:00 02:10 Temperature Pulse Rate 84 86 88 Pulse Rate [ Apical] Pulse Rate [ From Monitor] Respiratory 30 H 30 H 30 H Rate Blood Pressure 114/66 117/66 117/66 O2 Sat by Pulse 96 94 Oximetry 06/01/18 06/01/18 06/01/18 02:20 02:30 02:40 Temperature Pulse Rate 88 84 92 H Pulse Rate [ Apical] Pulse Rate [ From Monitor] Respiratory 30 H 30 H 30 H Rate Blood Pressure 116/65 120/70 116/65 O2 Sat by Pulse 96 97 Oximetry 06/01/18 06/01/18 06/01/18 02:50 03:00 03:10 Temperature Pulse Rate 84 84 82 Pulse Rate [ Apical] Pulse Rate [ From Monitor] Respiratory 30 H 30 H 30 H Rate Blood Pressure 114/63 114/63 114/63 O2 Sat by Pulse 96 96 97 Oximetry 06/01/18 06/01/18 06/01/18 03:20 03:30 03:40 Temperature Pulse Rate 86 85 87 Pulse Rate [ Apical] Pulse Rate [ From Monitor] Respiratory 30 H 30 H 30 H Rate Blood Pressure 119/70 118/67 119/70 O2 Sat by Pulse 94 97 98 Oximetry 06/01/18 06/01/18 06/01/18 03:50 04:00 04:08 Temperature 98.5 F Pulse Rate 83 83 84 Pulse Rate [ 97 H Apical] Pulse Rate [ 97 H From Monitor] Respiratory 30 H 30 H Rate Blood Pressure 120/66 123/66 123/66 O2 Sat by Pulse 98 98 98 Oximetry 06/01/18 06/01/18 06/01/18 04:10 04:20 04:30 Temperature Pulse Rate 82 84 81 Pulse Rate [ Apical] Pulse Rate [ From Monitor] Respiratory 30 H 30 H 30 H Rate Blood Pressure 120/66 119/65 121/64 O2 Sat by Pulse 98 98 98 Oximetry 06/01/18 06/01/18 06/01/18 04:40 04:50 05:00 Temperature Pulse Rate 83 81 85 Pulse Rate [ Apical] Pulse Rate [ From Monitor] Respiratory 30 H 29 H 27 H Rate Blood Pressure 121/64 122/63 O2 Sat by Pulse 97 98 98 Oximetry 06/01/18 06/01/18 06/01/18 05:10 05:20 05:28 Temperature Pulse Rate 82 83 Pulse Rate [ Apical] Pulse Rate [ From Monitor] Respiratory 30 H 30 H Rate Blood Pressure 122/63 116/67 O2 Sat by Pulse 97 98 98 Oximetry 06/01/18 06/01/18 06/01/18 05:30 05:40 05:50 Temperature Pulse Rate 82 153 H 100 H Pulse Rate [ Apical] Pulse Rate [ From Monitor] Respiratory 30 H 16 24 Rate Blood Pressure 114/63 114/63 128/68 O2 Sat by Pulse 97 95 98 Oximetry 06/01/18 06/01/18 06/01/18 06:00 06:10 06:20 Temperature Pulse Rate 99 H 93 H 92 H Pulse Rate [ Apical] Pulse Rate [ From Monitor] Respiratory 24 24 24 Rate Blood Pressure 117/68 117/68 123/71 O2 Sat by Pulse 98 99 99 Oximetry 06/01/18 06/01/18 06/01/18 06:30 06:40 06:50 Temperature Pulse Rate 82 82 91 H Pulse Rate [ Apical] Pulse Rate [ From Monitor] Respiratory 24 24 24 Rate Blood Pressure 118/64 118/64 122/62 O2 Sat by Pulse 99 100 100 Oximetry 06/01/18 06/01/18 06/01/18 07:00 07:10 07:20 Temperature Pulse Rate 84 94 H 83 Pulse Rate [ Apical] Pulse Rate [ From Monitor] Respiratory 24 24 24 Rate Blood Pressure 120/67 120/67 124/69 O2 Sat by Pulse 100 100 100 Oximetry 06/01/18 06/01/18 06/01/18 07:30 07:40 07:45 Temperature Pulse Rate 79 151 H 149 H Pulse Rate [ Apical] Pulse Rate [ From Monitor] Respiratory 18 23 Rate Blood Pressure 125/68 125/68 169/95 O2 Sat by Pulse 99 97 100 Oximetry 06/01/18 06/01/18 06/01/18 07:50 08:00 08:10 Temperature 98.9 F Pulse Rate 136 H 110 H 114 H Pulse Rate [ 99 H Apical] Pulse Rate [ 99 H From Monitor] Respiratory 18 23 20 Rate Blood Pressure 169/95 125/72 125/72 O2 Sat by Pulse 98 95 96 Oximetry 06/01/18 06/01/18 06/01/18 08:20 08:30 08:40 Temperature Pulse Rate 133 H 108 H 121 H Pulse Rate [ Apical] Pulse Rate [ From Monitor] Respiratory 12 24 19 Rate Blood Pressure 145/81 121/67 121/67 O2 Sat by Pulse 96 96 94 Oximetry 06/01/18 06/01/18 06/01/18 08:50 09:00 09:18 Temperature Pulse Rate 108 H 98 H 95 H Pulse Rate [ Apical] Pulse Rate [ From Monitor] Respiratory 24 24 Rate Blood Pressure 122/67 117/63 117/64 O2 Sat by Pulse 96 96 Oximetry 06/01/18 06/01/18 06/01/18 09:20 09:21 09:53 Temperature Pulse Rate 94 H 84 68 Pulse Rate [ Apical] Pulse Rate [ From Monitor] Respiratory Rate Blood Pressure 117/64 117/64 107/55 O2 Sat by Pulse 97 Oximetry CBC and BMP: 06/12/18 00:19 06/11/18 06:08 ABG, PT/INR, D-dimer: ABG POC ABG pH 7.465 (7.35-7.45) H 06/01/18 03:32 POC ABG pCO2 40.1 (35-45) 06/01/18 03:32 POC ABG pO2 74 (80-105) L 05/31/18 04:23 POC ABG HCO3 28.8 (22-26 mml/L) 06/01/18 03:32 POC ABG Total CO2 30 (23-27mmol/L) 06/01/18 03:32 POC ABG O2 Sat 85 06/01/18 03:32 PT/INR, D-dimer D-Dimer 1062.49 ng/mlDDU (0-234) H 05/28/18 13:13 Abnormal lab findings: Abnormal Labs 05/28/18 05/28/18 05/28/18 13:13 13:13 13:13 Hgb 9.7 L MCV 77 L MCH 23 L MCHC 29 L RDW 19.2 H Plt Count Lymph % (Auto) 8.5 L [place] % (Auto) 11.3 H Lymph # 0.8 L [place] # 1.1 H Seg Neutrophils % 79.8 H Seg Neuts % (Manual) Lymphocytes % (Manual) Nucleated RBC % Seg Neutrophils # Man Lymphocytes # (Manual) D-Dimer 1062.49 H POC ABG pH POC ABG pCO2 POC ABG pO2 Sodium Chloride BUN 24 H Creatinine 0.6 L Glucose POC Glucose Calcium Magnesium Albumin 3.5 L Triglycerides Ur Specific [place] 05/28/18 05/28/18 05/28/18 13:22 14:50 16:05 Hgb MCV MCH MCHC RDW Plt Count Lymph % (Auto) [place] % (Auto) Lymph # [place] # Seg Neutrophils % Seg Neuts % (Manual) Lymphocytes % (Manual) Nucleated RBC % Seg Neutrophils # Man Lymphocytes # (Manual) D-Dimer POC ABG pH 7.249 L 7.126 L POC ABG pCO2 68.9 H POC ABG pO2 77 L Sodium Chloride 109.1 H BUN 22 H Creatinine 0.5 L Glucose POC Glucose Calcium 7.5 L Magnesium Albumin Triglycerides Ur Specific [place] 05/28/18 05/28/18 05/28/18 17:57 18:48 22:47 Hgb MCV MCH MCHC RDW Plt Count Lymph % (Auto) [place] % (Auto) Lymph # [place] # Seg Neutrophils % Seg Neuts % (Manual) Lymphocytes % (Manual) Nucleated RBC % Seg Neutrophils # Man Lymphocytes # (Manual) D-Dimer POC ABG pH 7.195 L 7.312 L POC ABG pCO2 57.5 H POC ABG pO2 57 L 73 L Sodium Chloride BUN Creatinine Glucose POC Glucose Calcium Magnesium Albumin Triglycerides Ur Specific [place] > 1.030 H 05/30/18 05/30/18 05/31/18 06:10 10:42 04:23 Hgb MCV MCH MCHC RDW Plt Count Lymph % (Auto) [place] % (Auto) Lymph # [place] # Seg Neutrophils % Seg Neuts % (Manual) Lymphocytes % (Manual) Nucleated RBC % Seg Neutrophils # Man Lymphocytes # (Manual) D-Dimer POC ABG pH 7.214 L 7.253 L POC ABG pCO2 64.5 H 56.4 H POC ABG pO2 78 L 74 L Sodium Chloride BUN Creatinine Glucose POC Glucose Calcium Magnesium Albumin Triglycerides Ur Specific [place] 05/31/18 05/31/18 05/31/18 06:30 08:50 08:50 Hgb 9.3 L MCV 78 L MCH 23 L MCHC 29 L RDW 19.8 H Plt Count 131 L Lymph % (Auto) [place] % (Auto) Lymph # [place] # Seg Neutrophils % Seg Neuts % (Manual) 98.0 H Lymphocytes % (Manual) 2.0 L Nucleated RBC % 1.0 H Seg Neutrophils # Man 8.4 H Lymphocytes # (Manual) 0.2 L D-Dimer POC ABG pH POC ABG pCO2 POC ABG pO2 Sodium 153 H D Chloride 117.4 H BUN 18 H Creatinine 0.4 L Glucose 159 H POC Glucose 146 H Calcium 8.3 L Magnesium Albumin Triglycerides Ur Specific [place] 06/01/18 06/01/18 06/01/18 00:11 03:32 05:50 Hgb 9.8 L MCV 77 L MCH 23 L MCHC 29 L RDW 20.1 H Plt Count 122 L Lymph % (Auto) [place] % (Auto) Lymph # [place] # Seg Neutrophils % Seg Neuts % (Manual) Lymphocytes % (Manual) Nucleated RBC % Seg Neutrophils # Man Lymphocytes # (Manual) D-Dimer POC ABG pH 7.465 H POC ABG pCO2 POC ABG pO2 Sodium Chloride BUN Creatinine Glucose POC Glucose 149 H Calcium Magnesium Albumin Triglycerides Ur Specific [place] 06/01/18 06/01/18 06/01/18 05:50 05:50 05:51 Hgb MCV MCH MCHC RDW Plt Count Lymph % (Auto) [place] % (Auto) Lymph # [place] # Seg Neutrophils % Seg Neuts % (Manual) Lymphocytes % (Manual) Nucleated RBC % Seg Neutrophils # Man Lymphocytes # (Manual) D-Dimer POC ABG pH POC ABG pCO2 POC ABG pO2 Sodium 152 H Chloride 113.7 H BUN 18 H Creatinine 0.3 L Glucose 146 H POC Glucose 146 H Calcium Magnesium 2.40 H Albumin Triglycerides 214 H Ur Specific [place]
[2018-06-01] MEDS: HumaLOG SUB-Q SCH ×3 (10:43→18:38)
--- NOTE | 2018-06-01 11:09 | Progress Note ---
Assessment and Plan Cultures: 05/28/2018 blood culture: no growth 05/28/2018 Resp culture: E. coli, Pseudomonas aeruginosa 05/31/2018 blood culture: no growth thus far A/P: 58-year-old female with COPD with chronic respiratory failure on home oxygen admitted with shortness of breath and confusion: 1) Septic shock, likely secondary to left lower lobe pneumonia: severe pneumonia requiring mechanical ventilation and ICU stay. Remains off pressors. cultures growing resistant Pseudomonas, susceptible E.coli. 2) Acute on chronic respiratory failure with underlying COPD: On mechanical ventilation. 3) Acute encephalopathy: likely metabolic. 4) Spinal hardware noted on imaging, no concern for infection at present. Recs: continue Levofloxacin Day 2 of 10 d/c Gentamicin today d/w Dr. Roach and ICU pharmacist. Raul Gupta MD [facility] C: [phone] O: [phone] F: [phone] Subjective Date of service: 06/01/18 Interval history: No fever. Remains hemodynamically stable, off pressors. Sedated. On the vent. Discussed with RN. Objective - Exam Narrative Exam: Physical Exam: Constitutional: sedated, intubated Head, Ears, Nose: Normocephalic, atraumatic. External ears, nose normal Eyes: Conjunctivae/corneas clear. No icterus. No ptosis. Neck: Supple, no meningeal signs Oral: intubated Cardiovascular: S1, S2 normal. Respiratory: Good air entry, clear to auscultation bilaterally GI: Soft, non-tender; bowel sounds normal. No peritoneal signs Musculoskeletal: No pedal edema, no cyanosis. Skin: No rash or abscess Hem/Lymphatic: No palpable cervical or supraclavicular nodes. No lymphangitis Psych: no agitation Neurological: sedated, intubated, on vent. - Constitutional Vitals: Vital Signs Temp Pulse Resp BP Pulse Ox 98.9 F 68 24 107/55 97 06/01/18 08:00 06/01/18 09:53 06/01/18 09:00 06/01/18 09:53 06/01/18 09:53 Temperature -Last 24 Hours Temperature 98.9 F Temperature 98.5 F Temperature 99.1 F Temperature 98.6 F Temperature 99.1 F Temperature 99.3 F Temperature 100.3 F - Labs CBC & Chem 7: 06/01/18 05:50 06/01/18 05:50 Labs: Abnormal lab results 06/01/18 06/01/18 06/01/18 Range/Units 00:11 03:32 05:50 Hgb 9.8 L (10.1-14.3) gm/dl MCV 77 L (79-97) fl MCH 23 L (28-32) pg MCHC 29 L (30-34) % RDW 20.1 H (13.2-15.2) % Plt Count 122 L (140-440) K/mm3 POC ABG pH 7.465 H (7.35-7.45) Sodium (137-145) mmol/L Chloride (98-107) mmol/L BUN (7-17) mg/dL Creatinine (0.7-1.2) mg/dL Glucose (65-100) mg/dL POC Glucose 149 H (70-105) Magnesium (1.7-2.3) mg/dL Triglycerides (2-149) mg/dL 06/01/18 06/01/18 06/01/18 Range/Units 05:50 05:50 05:51 Hgb (10.1-14.3) gm/dl MCV (79-97) fl MCH (28-32) pg MCHC (30-34) % RDW (13.2-15.2) % Plt Count (140-440) K/mm3 POC ABG pH (7.35-7.45) Sodium 152 H (137-145) mmol/L Chloride 113.7 H (98-107) mmol/L BUN 18 H (7-17) mg/dL Creatinine 0.3 L (0.7-1.2) mg/dL Glucose 146 H (65-100) mg/dL POC Glucose 146 H (70-105) Magnesium 2.40 H (1.7-2.3) mg/dL Triglycerides 214 H (2-149) mg/dL 06/01/18 Range/Units 10:40 Hgb (10.1-14.3) gm/dl MCV (79-97) fl MCH (28-32) pg MCHC (30-34) % RDW (13.2-15.2) % Plt Count (140-440) K/mm3 POC ABG pH (7.35-7.45) Sodium (137-145) mmol/L Chloride (98-107) mmol/L BUN (7-17) mg/dL Creatinine (0.7-1.2) mg/dL Glucose (65-100) mg/dL POC Glucose 147 H (70-105) Magnesium (1.7-2.3) mg/dL Triglycerides (2-149) mg/dL
[2018-06-01] MEDS ORDERED: SIMPLE SYRUP FEEDTUBE PRN ×2 (13:33)
[2018-06-01] MEDS ORDERED: PANCREAZE DR 10,500 UNIT FEEDTUBE PRN (13:33)
[2018-06-01] MEDS ORDERED: SODIUM BICARBONATE FEEDTUBE PRN (13:33)
--- NOTE | 2018-06-01 17:31 | XRay Report ---
PROCEDURE: XR CHEST 1V AP HISTORY: Respiratory Failure FINDINGS: Frontal view of the chest was acquired and compared to the prior examination of May 30, 2018. There is cardiomegaly. There is mild pulmonary edema which is similar to the prior exam. There is a l eft pleural effusion, new. There is bibasilar atelectasis. There are spinal rods of the thoracic spin e. IMPRESSION: Cardiomegaly and stable mild pulmonary edema Left pleural effusion, new This document is electronically signed by Jett Hollis MD., June 01 2018 05:29:42 PM ET
[2018-06-01] MEDS: ATIVAN IV PRN (19:38)
[2018-06-01] MEDS: LOVENOX SUB-Q SCH (22:06)
[2018-06-02] MEDS: fentaNYL DRIP Premix 2,000 MCG/100 ML BAG IV SCH ×4 (00:39→20:20)
[2018-06-02] MEDS: HumaLOG SUB-Q SCH ×4 (00:41→18:08)
[2018-06-02] MEDS: SODIUM CHLORIDE FLUSH SYRINGE 10 ML IV SCH ×3 (00:41→22:04)
[2018-06-02] MEDS: FREE WATER PO SCH ×6 (02:00→22:05)
[2018-06-02] MEDS: SOLU-Medrol IV SCH ×3 (05:43→21:58)
[2018-06-02 08:09] LABS: Mean Corpuscular HGB Conc 29 % (30-34); Mean Corpuscular Volume 77 fl (79-97); Platelet Count 103 K/mm3 (140-440); Red Blood Count 4.45 M/mm3 (3.65-5.03); Red Cell Distribution Width 18.8 % (13.2-15.2)
[2018-06-02 08:10] LABS: Hematocrit 34.4 % (30.3-42.9)
[2018-06-02] MEDS: PULMICORT IH SCH ×2 (08:11→19:59)
[2018-06-02] MEDS: DUONEB *Not for PRN Use IH SCH ×4 (08:11→23:37)
[2018-06-02 08:56] LABS: BUN/Creatinine Ratio 70; Blood Urea Nitrogen 21 mg/dL (7-17); Calcium 8.5 mg/dL (8.4-10.2); Hemolysis Index 0
--- NOTE | 2018-06-02 10:16 | Progress Note ---
Assessment and Plan -Septic Shock suspected LLL pneumonia, SOFA score >2 -Acute on chronic combined( hypoxic-hypercapnic) respiratory failure s/p ETT on MVS -Severe AE COPD -AMS with Acute encephalopathy -Macrocytosis -GNR pneumonia, probably secondary to aspiration -Acute encephalaopthy( toxic, metabolic) -History of substance abuse -Thrombocytopenia( multifactorial) -Hypernatremia -Hyperchloremia -Continue full MVS, decrease PEEP to 8 -Adjust ventilator settings for better gas-exchange, minute ventilation adjusted -Wean supplemental oxygen to keep O2 sats 88-90% -Lung protective strategies -Oxygen restrictive strategies -ABGs/CXR in [facility] morning -Antibiotics per ID -Discontinue nunez catheter -VAP bundle addressed -Daily SAT's & SBT's per protocol -Sedation target for RASS 0 to -1 -Stress ulcer prophylaxis -VTE prophylaxis, conitnue heparin and monitor platelet counts -Tube feedings, with free water flushes. Conitnue hypotonic solution -Steroid taper -Chronic home medications -With macrocytosis, and history of drug use, continue CIWA protocol -Aspiration precautions -Accuchecks with glycemic control. Target glucose of 140-180 mg/dL -Continue bronchodilators with pulmonary hygiene per RT -Maintenance of sleep -wake cycle -Mobility as tolerated by hemodynamics -Influenza and pneumonia vaccination per protocol Discussed in ICU-IDT rounds with care team PROGNOSIS GUARDED CONDITION: CRITICAL CODE STATUS: FULL CODE The high probability of a clinically significant, sudden or life-threatening deterioration of the [respiratory, neurology,hematology] system(s) required my full and direct attention, intervention and personal management. The aggregate critical care time was [35] minutes without overlap. Time includes spent on; [x] Data Review and interpretation [x] Patient assessment and monitoring of vital signs [x] Documentation [x] Medication orders and management Subjective Date of service: 06/02/18 Interval history: Patient is seen today for: acute hypoxemic-hypercapnic respiratory failure, AE- COPD, acute encephaloapthy, h/o polysubstance abuse, obese Seen and examined at bedside; 24hour events reviewed; nursing and respiratory care staff consulted; no adverse overnight events reported to me; No fevers, no vomiting Remains on full mechanical ventilatory support, on going agitation RUExt PICC line, Nunez catheter in place Vent AC 14/450/10/60% ABG 7.37/50.3/72.1/29.6 Discussed in ICU-IDT rounds Objective - Exam Narrative Exam: Physical Exam: Constitutional: sedated, intubated, ETT at 22cm at the lip No patient-ventilator dys-synchrony. PPlat <30 Head, Ears, Nose: Normocephalic, atraumatic. Eyes: Conjunctivae/corneas clear with conjunctival edema. No icterus. No ptosis. Neck: Supple, no meningeal signs Cardiovascular: RRR, S1, S2 normal. Respiratory: Decreasedd AE bilaterally,Occ rhonchi, GI: Soft, non-tender; bowel sounds normal. No peritoneal signs Musculoskeletal: No pedal edema, no cyanosis, RUExt PICC line Skin: No rash or abscess Hem/Lymphatic: No palpable cervical or supraclavicular nodes. No lymphangitis Psych: Agitated Neurological: moves all extremities when agitated Vital Signs - 12hr 06/01/18 06/01/18 06/01/18 22:20 22:30 22:40 Temperature Pulse Rate 83 104 H 98 H Pulse Rate [ Anterior Bilateral Throughout] Pulse Rate [ Apical] Pulse Rate [ From Monitor] Respiratory 14 11 L 11 L Rate Respiratory Rate [Anterior Bilateral Throughout] Blood Pressure 116/62 119/68 119/68 O2 Sat by Pulse 98 99 Oximetry 06/01/18 06/01/18 06/01/18 22:50 23:00 23:07 Temperature 98.9 F Pulse Rate 100 H 95 H Pulse Rate [ Anterior Bilateral Throughout] Pulse Rate [ Apical] Pulse Rate [ From Monitor] Respiratory 12 13 Rate Respiratory Rate [Anterior Bilateral Throughout] Blood Pressure 126/66 116/67 O2 Sat by Pulse 99 100 Oximetry 06/01/18 06/01/18 06/01/18 23:10 23:20 23:30 Temperature Pulse Rate 88 85 86 Pulse Rate [ Anterior Bilateral Throughout] Pulse Rate [ Apical] Pulse Rate [ From Monitor] Respiratory 14 13 14 Rate Respiratory Rate [Anterior Bilateral Throughout] Blood Pressure 116/67 122/65 126/68 O2 Sat by Pulse 99 99 99 Oximetry 06/01/18 06/01/18 06/01/18 23:40 23:41 23:50 Temperature Pulse Rate 86 88 86 Pulse Rate [ Anterior Bilateral Throughout] Pulse Rate [ Apical] Pulse Rate [ From Monitor] Respiratory 12 13 Rate Respiratory Rate [Anterior Bilateral Throughout] Blood Pressure 126/68 122/65 125/65 O2 Sat by Pulse 98 99 98 Oximetry 06/02/18 06/02/18 06/02/18 00:00 00:10 00:20 Temperature Pulse Rate 86 89 93 H Pulse Rate [ Anterior Bilateral Throughout] Pulse Rate [ 77 Apical] Pulse Rate [ 77 From Monitor] Respiratory 15 15 14 Rate Respiratory Rate [Anterior Bilateral Throughout] Blood Pressure 121/62 121/62 125/66 O2 Sat by Pulse 99 98 98 Oximetry 06/02/18 06/02/18 06/02/18 00:30 00:40 00:50 Temperature Pulse Rate 89 91 H 89 Pulse Rate [ Anterior Bilateral Throughout] Pulse Rate [ Apical] Pulse Rate [ From Monitor] Respiratory 13 13 16 Rate Respiratory Rate [Anterior Bilateral Throughout] Blood Pressure 126/66 126/66 131/65 O2 Sat by Pulse 99 98 98 Oximetry 06/02/18 06/02/18 06/02/18 01:00 01:10 01:20 Temperature Pulse Rate 90 91 H 88 Pulse Rate [ Anterior Bilateral Throughout] Pulse Rate [ Apical] Pulse Rate [ From Monitor] Respiratory 13 13 12 Rate Respiratory Rate [Anterior Bilateral Throughout] Blood Pressure 122/63 122/63 131/67 O2 Sat by Pulse 98 98 98 Oximetry 06/02/18 06/02/18 06/02/18 01:30 01:40 01:50 Temperature Pulse Rate 88 96 H 90 Pulse Rate [ Anterior Bilateral Throughout] Pulse Rate [ Apical] Pulse Rate [ From Monitor] Respiratory 13 14 15 Rate Respiratory Rate [Anterior Bilateral Throughout] Blood Pressure 123/64 123/64 124/62 O2 Sat by Pulse 98 98 98 Oximetry 06/02/18 06/02/18 06/02/18 02:00 02:10 02:20 Temperature Pulse Rate 88 92 H 90 Pulse Rate [ Anterior Bilateral Throughout] Pulse Rate [ Apical] Pulse Rate [ From Monitor] Respiratory 13 14 13 Rate Respiratory Rate [Anterior Bilateral Throughout] Blood Pressure 125/64 125/64 123/63 O2 Sat by Pulse 99 98 98 Oximetry 06/02/18 06/02/18 06/02/18 02:30 02:40 02:50 Temperature Pulse Rate 89 93 H 89 Pulse Rate [ Anterior Bilateral Throughout] Pulse Rate [ Apical] Pulse Rate [ From Monitor] Respiratory 13 12 15 Rate Respiratory Rate [Anterior Bilateral Throughout] Blood Pressure 120/68 120/68 128/65 O2 Sat by Pulse 98 98 98 Oximetry 06/02/18 06/02/18 06/02/18 03:00 03:10 03:20 Temperature Pulse Rate 90 90 88 Pulse Rate [ Anterior Bilateral Throughout] Pulse Rate [ Apical] Pulse Rate [ From Monitor] Respiratory 15 15 14 Rate Respiratory Rate [Anterior Bilateral Throughout] Blood Pressure 124/66 124/66 122/63 O2 Sat by Pulse 98 98 98 Oximetry 06/02/18 06/02/18 06/02/18 03:21 03:30 03:40 Temperature 98.8 F Pulse Rate 85 87 Pulse Rate [ Anterior Bilateral Throughout] Pulse Rate [ Apical] Pulse Rate [ From Monitor] Respiratory 15 13 Rate Respiratory Rate [Anterior Bilateral Throughout] Blood Pressure 122/63 122/63 O2 Sat by Pulse 99 98 Oximetry 06/02/18 06/02/18 06/02/18 03:50 04:00 04:04 Temperature Pulse Rate 89 89 91 H Pulse Rate [ Anterior Bilateral Throughout] Pulse Rate [ 82 Apical] Pulse Rate [ 82 From Monitor] Respiratory 13 13 Rate Respiratory Rate [Anterior Bilateral Throughout] Blood Pressure 128/64 126/61 128/64 O2 Sat by Pulse 99 98 98 Oximetry 06/02/18 06/02/18 06/02/18 04:10 04:20 04:30 Temperature Pulse Rate 89 89 87 Pulse Rate [ Anterior Bilateral Throughout] Pulse Rate [ Apical] Pulse Rate [ From Monitor] Respiratory 14 14 14 Rate Respiratory Rate [Anterior Bilateral Throughout] Blood Pressure 126/61 130/65 125/64 O2 Sat by Pulse 99 99 99 Oximetry 06/02/18 06/02/18 06/02/18 04:40 04:50 05:00 Temperature Pulse Rate 88 87 85 Pulse Rate [ Anterior Bilateral Throughout] Pulse Rate [ Apical] Pulse Rate [ From Monitor] Respiratory 13 14 14 Rate Respiratory Rate [Anterior Bilateral Throughout] Blood Pressure 125/64 125/65 122/64 O2 Sat by Pulse 98 99 98 Oximetry 06/02/18 06/02/18 06/02/18 05:10 05:20 05:30 Temperature Pulse Rate 88 85 88 Pulse Rate [ Anterior Bilateral Throughout] Pulse Rate [ Apical] Pulse Rate [ From Monitor] Respiratory 14 13 13 Rate Respiratory Rate [Anterior Bilateral Throughout] Blood Pressure 128/64 124/64 133/65 O2 Sat by Pulse 98 99 99 Oximetry 06/02/18 06/02/18 06/02/18 05:40 05:50 06:00 Temperature Pulse Rate 86 84 83 Pulse Rate [ Anterior Bilateral Throughout] Pulse Rate [ Apical] Pulse Rate [ From Monitor] Respiratory 12 14 14 Rate Respiratory Rate [Anterior Bilateral Throughout] Blood Pressure 124/64 117/60 115/63 O2 Sat by Pulse 99 98 98 Oximetry 06/02/18 06/02/18 06/02/18 06:10 06:20 06:30 Temperature Pulse Rate 143 H 137 H 126 H Pulse Rate [ Anterior Bilateral Throughout] Pulse Rate [ Apical] Pulse Rate [ From Monitor] Respiratory 12 12 12 Rate Respiratory Rate [Anterior Bilateral Throughout] Blood Pressure 115/63 142/112 132/77 O2 Sat by Pulse 96 95 97 Oximetry 06/02/18 06/02/18 06/02/18 06:40 06:50 07:00 Temperature Pulse Rate 125 H 94 H 77 Pulse Rate [ Anterior Bilateral Throughout] Pulse Rate [ Apical] Pulse Rate [ From Monitor] Respiratory 13 14 13 Rate Respiratory Rate [Anterior Bilateral Throughout] Blood Pressure 142/112 112/63 111/66 O2 Sat by Pulse 96 98 Oximetry 06/02/18 06/02/18 06/02/18 07:10 07:20 07:30 Temperature Pulse Rate 75 73 81 Pulse Rate [ Anterior Bilateral Throughout] Pulse Rate [ Apical] Pulse Rate [ From Monitor] Respiratory 11 L 12 11 L Rate Respiratory Rate [Anterior Bilateral Throughout] Blood Pressure 111/66 132/68 138/68 O2 Sat by Pulse 96 95 95 Oximetry 06/02/18 06/02/18 06/02/18 07:40 07:50 08:00 Temperature 99.7 F H Pulse Rate 75 99 H 75 Pulse Rate [ Anterior Bilateral Throughout] Pulse Rate [ 86 Apical] Pulse Rate [ 86 From Monitor] Respiratory 11 L 17 16 Rate Respiratory Rate [Anterior Bilateral Throughout] Blood Pressure 111/66 143/70 144/65 O2 Sat by Pulse 95 96 94 Oximetry 06/02/18 06/02/18 08:11 08:28 Temperature Pulse Rate 91 H Pulse Rate [ 73 79 Anterior Bilateral Throughout] Pulse Rate [ Apical] Pulse Rate [ From Monitor] Respiratory Rate Respiratory 16 14 Rate [Anterior Bilateral Throughout] Blood Pressure 144/65 O2 Sat by Pulse 96 Oximetry CBC and BMP: 06/02/18 07:47 06/02/18 07:47 ABG, PT/INR, D-dimer: ABG POC ABG pH 7.378 (7.35-7.45) 06/02/18 04:11 POC ABG pCO2 50.3 (35-45) H 06/02/18 04:11 POC ABG pO2 72 (80-105) L 06/02/18 04:11 POC ABG HCO3 29.6 (22-26 mml/L) 06/02/18 04:11 POC ABG Total CO2 31 (23-27mmol/L) 06/02/18 04:11 POC ABG O2 Sat 94 06/02/18 04:11 PT/INR, D-dimer D-Dimer 1062.49 ng/mlDDU (0-234) H 05/28/18 13:13 Abnormal lab findings: Abnormal Labs 05/28/18 05/28/18 05/28/18 13:13 13:13 13:13 Hgb 9.7 L MCV 77 L MCH 23 L MCHC 29 L RDW 19.2 H Plt Count Lymph % (Auto) 8.5 L [place] % (Auto) 11.3 H Lymph # 0.8 L [place] # 1.1 H Seg Neutrophils % 79.8 H Seg Neuts % (Manual) Lymphocytes % (Manual) Nucleated RBC % Seg Neutrophils # Man Lymphocytes # (Manual) D-Dimer 1062.49 H POC ABG pH POC ABG pCO2 POC ABG pO2 Sodium Chloride Carbon Dioxide BUN 24 H Creatinine 0.6 L Glucose POC Glucose Calcium Magnesium Albumin 3.5 L Triglycerides Ur Specific [place] 05/28/18 05/28/18 05/28/18 13:22 14:50 16:05 Hgb MCV MCH MCHC RDW Plt Count Lymph % (Auto) [place] % (Auto) Lymph # [place] # Seg Neutrophils % Seg Neuts % (Manual) Lymphocytes % (Manual) Nucleated RBC % Seg Neutrophils # Man Lymphocytes # (Manual) D-Dimer POC ABG pH 7.249 L 7.126 L POC ABG pCO2 68.9 H POC ABG pO2 77 L Sodium Chloride 109.1 H Carbon Dioxide BUN 22 H Creatinine 0.5 L Glucose POC Glucose Calcium 7.5 L Magnesium Albumin Triglycerides Ur Specific [place] 05/28/18 05/28/18 05/28/18 17:57 18:48 22:47 Hgb MCV MCH MCHC RDW Plt Count Lymph % (Auto) [place] % (Auto) Lymph # [place] # Seg Neutrophils % Seg Neuts % (Manual) Lymphocytes % (Manual) Nucleated RBC % Seg Neutrophils # Man Lymphocytes # (Manual) D-Dimer POC ABG pH 7.195 L 7.312 L POC ABG pCO2 57.5 H POC ABG pO2 57 L 73 L Sodium Chloride Carbon Dioxide BUN Creatinine Glucose POC Glucose Calcium Magnesium Albumin Triglycerides Ur Specific [place] > 1.030 H 05/30/18 05/30/18 05/31/18 06:10 10:42 04:23 Hgb MCV MCH MCHC RDW Plt Count Lymph % (Auto) [place] % (Auto) Lymph # [place] # Seg Neutrophils % Seg Neuts % (Manual) Lymphocytes % (Manual) Nucleated RBC % Seg Neutrophils # Man Lymphocytes # (Manual) D-Dimer POC ABG pH 7.214 L 7.253 L POC ABG pCO2 64.5 H 56.4 H POC ABG pO2 78 L 74 L Sodium Chloride Carbon Dioxide BUN Creatinine Glucose POC Glucose Calcium Magnesium Albumin Triglycerides Ur Specific [place] 05/31/18 05/31/18 05/31/18 06:30 08:50 08:50 Hgb 9.3 L MCV 78 L MCH 23 L MCHC 29 L RDW 19.8 H Plt Count 131 L Lymph % (Auto) [place] % (Auto) Lymph # [place] # Seg Neutrophils % Seg Neuts % (Manual) 98.0 H Lymphocytes % (Manual) 2.0 L Nucleated RBC % 1.0 H Seg Neutrophils # Man 8.4 H Lymphocytes # (Manual) 0.2 L D-Dimer POC ABG pH POC ABG pCO2 POC ABG pO2 Sodium 153 H D Chloride 117.4 H Carbon Dioxide BUN 18 H Creatinine 0.4 L Glucose 159 H POC Glucose 146 H Calcium 8.3 L Magnesium Albumin Triglycerides Ur Specific [place] 06/01/18 06/01/18 06/01/18 00:11 03:32 05:50 Hgb 9.8 L MCV 77 L MCH 23 L MCHC 29 L RDW 20.1 H Plt Count 122 L Lymph % (Auto) [place] % (Auto) Lymph # [place] # Seg Neutrophils % Seg Neuts % (Manual) Lymphocytes % (Manual) Nucleated RBC % Seg Neutrophils # Man Lymphocytes # (Manual) D-Dimer POC ABG pH 7.465 H POC ABG pCO2 POC ABG pO2 Sodium Chloride Carbon Dioxide BUN Creatinine Glucose POC Glucose 149 H Calcium Magnesium Albumin Triglycerides Ur Specific [place] 06/01/18 06/01/18 06/01/18 05:50 05:50 05:51 Hgb MCV MCH MCHC RDW Plt Count Lymph % (Auto) [place] % (Auto) Lymph # [place] # Seg Neutrophils % Seg Neuts % (Manual) Lymphocytes % (Manual) Nucleated RBC % Seg Neutrophils # Man Lymphocytes # (Manual) D-Dimer POC ABG pH POC ABG pCO2 POC ABG pO2 Sodium 152 H Chloride 113.7 H Carbon Dioxide BUN 18 H Creatinine 0.3 L Glucose 146 H POC Glucose 146 H Calcium Magnesium 2.40 H Albumin Triglycerides 214 H Ur Specific [place] 06/01/18 06/01/18 06/01/18 10:40 11:52 12:06 Hgb MCV MCH MCHC RDW Plt Count Lymph % (Auto) [place] % (Auto) Lymph # [place] # Seg Neutrophils % Seg Neuts % (Manual) Lymphocytes % (Manual) Nucleated RBC % Seg Neutrophils # Man Lymphocytes # (Manual) D-Dimer POC ABG pH POC ABG pCO2 48.4 H POC ABG pO2 Sodium Chloride Carbon Dioxide BUN Creatinine Glucose POC Glucose 147 H 138 H Calcium Magnesium Albumin Triglycerides Ur Specific [place] 06/01/18 06/02/18 06/02/18 18:08 00:39 04:11 Hgb MCV MCH MCHC RDW Plt Count Lymph % (Auto) [place] % (Auto) Lymph # [place] # Seg Neutrophils % Seg Neuts % (Manual) Lymphocytes % (Manual) Nucleated RBC % Seg Neutrophils # Man Lymphocytes # (Manual) D-Dimer POC ABG pH POC ABG pCO2 50.3 H POC ABG pO2 72 L Sodium Chloride Carbon Dioxide BUN Creatinine Glucose POC Glucose 156 H 156 H Calcium Magnesium Albumin Triglycerides Ur Specific [place] 06/02/18 06/02/18 06/02/18 05:16 07:47 07:47 Hgb 10.0 L MCV 77 L MCH 23 L MCHC 29 L RDW 18.8 H Plt Count 103 L Lymph % (Auto) [place] % (Auto) Lymph # [place] # Seg Neutrophils % Seg Neuts % (Manual) Lymphocytes % (Manual) Nucleated RBC % Seg Neutrophils # Man Lymphocytes # (Manual) D-Dimer POC ABG pH POC ABG pCO2 POC ABG pO2 Sodium 148 H Chloride 109.4 H Carbon Dioxide 32 H BUN 21 H Creatinine 0.3 L Glucose 137 H POC Glucose 150 H Calcium Magnesium Albumin Triglycerides Ur Specific [place] Chest x-ray: image reviewed (Low lung volumes, Spinal hardware, small effusion/infiltrate left lung base, increased interstial marking) Allied health notes reviewed: RT
[2018-06-02] MEDS: LOPRESSOR PO SCH ×2 (10:57→22:03)
[2018-06-02] MEDS: ZESTRIL PO SCH (10:57)
[2018-06-02] MEDS: LIORESAL PO SCH ×2 (10:58→21:58)
[2018-06-02] MEDS: NORVASC PO SCH (10:58)
[2018-06-02] MEDS: PREVACID SOLUTAB FEEDTUBE SCH (10:59)
[2018-06-02] MEDS: BUSPAR PO SCH ×2 (11:00→21:58)
[2018-06-02] MEDS: LEVAQUIN 750MG/150ML 750 MG/150 ML BAG IV SCH (11:01)
[2018-06-02] MEDS: ATIVAN IV PRN ×2 (11:04→20:08)
--- NOTE | 2018-06-02 11:45 | Progress Note ---
Assessment and Plan Assessment and plan: Septic shock -likely secondary to left lower lobe pneumonia -Off IV pressor -On IV levofloxacin -Sputum culture positive for Pseudomonas/Escherichia coli. -Blood cultures negative Pseudomonas/E.coli PNA -Cont IV levofloxacin Acute on chronic hypoxic and hypercapnic respiratory failure -Probably secondary to the pneumonia versus acute COPD exacerbation -Status post intubation on MV Acute metabolic encephalopathy -We'll continue to monitor clinically Hypertension -Blood pressure controlled on current antihypertensives Acute thrombocytopenia -will monitor level Nutrition -On NG tube feeding -Dietitian following DVT prophylaxis with Lovenox and GI prophylaxis with PPI Disposition: Continue ICU care History Interval history: Pt is intubated and sedated. She continues to be in restraints due to agitation. No other issues reported. Hospitalist Physical - Constitutional Vitals: Temp Pulse Resp BP Pulse Ox 99.7 F H 115 H 13 142/67 93 06/02/18 08:00 06/02/18 11:00 06/02/18 11:00 06/02/18 11:00 06/02/18 11:00 General appearance: Present: no acute distress, other (pt is intubated.) - EENT Eyes: Present: PERRL ENT: hearing intact, other (NG-tube in place) - Neck Neck: Present: supple - Respiratory Respiratory effort: normal Respiratory: bilateral: CTA - Cardiovascular Rhythm: regular (with tachycardia) Heart Sounds: Present: S1 & S2 - Extremities Extremity abnormal: edema (in bilateral upper extremities) - Abdominal General gastrointestinal: soft, non-tender, non-distended, normal bowel sounds - Integumentary Integumentary: Present: clear, warm, dry - Neurologic Neurologic: other (Pt is intubated and sedated) Results - Labs CBC & Chem 7: 06/02/18 07:47 06/02/18 07:47 Labs: Laboratory Last Values WBC 8.3 K/mm3 (4.5-11.0) 06/02/18 07:47 RBC 4.45 M/mm3 (3.65-5.03) 06/02/18 07:47 Hgb 10.0 gm/dl (10.1-14.3) L 06/02/18 07:47 Hct 34.4 % (30.3-42.9) 06/02/18 07:47 MCV 77 fl (79-97) L 06/02/18 07:47 MCH 23 pg (28-32) L 06/02/18 07:47 MCHC 29 % (30-34) L 06/02/18 07:47 RDW 18.8 % (13.2-15.2) H 06/02/18 07:47 Plt Count 103 K/mm3 (140-440) L 06/02/18 07:47 Lymph % (Auto) 8.5 % (13.4-35.0) L 05/28/18 13:13 Reeves % (Auto) 11.3 % (0.0-7.3) H 05/28/18 13:13 Eos % (Auto) 0.0 % (0.0-4.3) 05/28/18 13:13 Baso % (Auto) 0.4 % (0.0-1.8) 05/28/18 13:13 Lymph # 0.8 K/mm3 (1.2-5.4) L 05/28/18 13:13 Reeves # 1.1 K/mm3 (0.0-0.8) H 05/28/18 13:13 Eos # 0.0 K/mm3 (0.0-0.4) 05/28/18 13:13 Baso # 0.0 K/mm3 (0.0-0.1) 05/28/18 13:13 Add Manual Diff Complete 05/31/18 08:50 Total Counted 100 05/31/18 08:50 Seg Neutrophils % [employer] 05/31/18 08:50 Seg Neuts % (Manual) 98.0 % (40.0-70.0) H 05/31/18 08:50 Band Neutrophils % 0 % 05/31/18 08:50 Lymphocytes % (Manual) 2.0 % (13.4-35.0) L 05/31/18 08:50 Reactive Lymphs % (Man) 0 % 05/31/18 08:50 Monocytes % (Manual) 0 % (0.0-7.3) 05/31/18 08:50 Eosinophils % (Manual) 0 % (0.0-4.3) 05/31/18 08:50 Basophils % (Manual) 0 % (0.0-1.8) 05/31/18 08:50 Metamyelocytes % 0 % 05/31/18 08:50 Myelocytes % 0 % 05/31/18 08:50 Promyelocytes % 0 % 05/31/18 08:50 Blast Cells % 0 % 05/31/18 08:50 Nucleated RBC % 1.0 % (0.0-0.9) H 05/31/18 08:50 Seg Neutrophils # 7.7 K/mm3 (1.8-7.7) 05/28/18 13:13 Seg Neutrophils # Man 8.4 K/mm3 (1.8-7.7) H 05/31/18 08:50 Band Neutrophils # 0.0 K/mm3 05/31/18 08:50 Lymphocytes # (Manual) 0.2 K/mm3 (1.2-5.4) L 05/31/18 08:50 Abs React Lymphs (Man) 0.0 K/mm3 05/31/18 08:50 Monocytes # (Manual) 0.0 K/mm3 (0.0-0.8) 05/31/18 08:50 Eosinophils # (Manual) 0.0 K/mm3 (0.0-0.4) 05/31/18 08:50 Basophils # (Manual) 0.0 K/mm3 (0.0-0.1) 05/31/18 08:50 Metamyelocytes # 0.0 K/mm3 05/31/18 08:50 Myelocytes # 0.0 K/mm3 05/31/18 08:50 Promyelocytes # 0.0 K/mm3 05/31/18 08:50 Blast Cells # 0.0 K/mm3 05/31/18 08:50 WBC Morphology Not Reportable 05/31/18 08:50 Hypersegmented Neuts Not Reportable 05/31/18 08:50 Hyposegmented Neuts Not Reportable 05/31/18 08:50 Hypogranular Neuts Not Reportable 05/31/18 08:50 Smudge Cells Not Reportable 05/31/18 08:50 Toxic Granulation Not Reportable 05/31/18 08:50 Toxic Vacuolation Not Reportable 05/31/18 08:50 Dohle Bodies Not Reportable 05/31/18 08:50 Pelger-Huet Anomaly Not Reportable 05/31/18 08:50 Neha Rods Not Reportable 05/31/18 08:50 Platelet Estimate Consistent w auto 05/31/18 08:50 Clumped Platelets Not Reportable 05/31/18 08:50 Plt Clumps, EDTA Not Reportable 05/31/18 08:50 Large Platelets Not Reportable 05/31/18 08:50 Giant Platelets Not Reportable 05/31/18 08:50 Platelet Satelliting Not Reportable 05/31/18 08:50 Plt Morphology Comment Not Reportable 05/31/18 08:50 RBC Morphology Not Reportable 05/31/18 08:50 Dimorphic RBCs Not Reportable 05/31/18 08:50 Polychromasia Few 05/31/18 08:50 Hypochromasia Few 05/31/18 08:50 Poikilocytosis Not Reportable 05/31/18 08:50 Anisocytosis Not Reportable 05/31/18 08:50 Microcytosis Not Reportable 05/31/18 08:50 Macrocytosis Not Reportable 05/31/18 08:50 Spherocytes Not Reportable 05/31/18 08:50 Pappenheimer Bodies Not Reportable 05/31/18 08:50 Sickle Cells Not Reportable 05/31/18 08:50 Target Cells Not Reportable 05/31/18 08:50 Tear Drop Cells Not Reportable 05/31/18 08:50 Ovalocytes Not Reportable 05/31/18 08:50 Stomatocytes Rare 05/31/18 08:50 Helmet Cells Not Reportable 05/31/18 08:50 [place] Bodies Not Reportable 05/31/18 08:50 [place] Rings Not Reportable 05/31/18 08:50 Damien Cells Not Reportable 05/31/18 08:50 Bite Cells Not Reportable 05/31/18 08:50 Crenated Cell Not Reportable 05/31/18 08:50 Elliptocytes Not Reportable 05/31/18 08:50 Acanthocytes (Spur) Not Reportable 05/31/18 08:50 Rouleaux Not Reportable 05/31/18 08:50 Hemoglobin C Crystals Not Reportable 05/31/18 08:50 Schistocytes Not Reportable 05/31/18 08:50 Malaria parasites Not Reportable 05/31/18 08:50 Hernan Bodies Not Reportable 05/31/18 08:50 Hem Pathologist Commnt No 05/31/18 08:50 D-Dimer 1062.49 ng/mlDDU (0-234) H 05/28/18 13:13 POC ABG pH 7.378 (7.35-7.45) 06/02/18 04:11 POC ABG pCO2 50.3 (35-45) H 06/02/18 04:11 POC ABG pO2 72 (80-105) L 06/02/18 04:11 POC ABG HCO3 29.6 (22-26 mml/L) 06/02/18 04:11 POC ABG Total CO2 31 (23-27mmol/L) 06/02/18 04:11 POC ABG O2 Sat 94 06/02/18 04:11 POC ABG Base Excess 4 ((-2) - (+3)mmol/L) 06/02/18 04:11 FiO2 65 % 06/02/18 04:11 Sodium 148 mmol/L (137-145) H 06/02/18 07:47 Potassium 4.4 mmol/L (3.6-5.0) 06/02/18 07:47 Chloride 109.4 mmol/L (98-107) H 06/02/18 07:47 Carbon Dioxide 32 mmol/L (22-30) H 06/02/18 07:47 Anion Gap 11 mmol/L 06/02/18 07:47 BUN 21 mg/dL (7-17) H 06/02/18 07:47 Creatinine 0.3 mg/dL (0.7-1.2) L 06/02/18 07:47 Estimated GFR > 60 ml/min 06/02/18 07:47 BUN/Creatinine Ratio 70 % 06/02/18 07:47 Glucose 137 mg/dL (65-100) H 06/02/18 07:47 POC Glucose 150 (70-105) H 06/02/18 05:16 Lactic Acid 0.90 mmol/L (0.7-2.0) 05/28/18 14:50 Calcium 8.5 mg/dL (8.4-10.2) 06/02/18 07:47 Magnesium 2.40 mg/dL (1.7-2.3) H 06/01/18 05:50 Total Bilirubin 0.30 mg/dL (0.1-1.2) 05/28/18 13:13 AST 23 units/L (5-40) 05/28/18 13:13 ALT 11 units/L (7-56) 05/28/18 13:13 Alkaline Phosphatase 96 units/L (35-129) 05/28/18 13:13 Troponin T < 0.010 ng/mL (0.00-0.029) 05/28/18 13:13 Total Protein 6.6 g/dL (6.3-8.2) 05/28/18 13:13 Albumin 3.5 g/dL (3.9-5) L 05/28/18 13:13 Albumin/Globulin Ratio 1.1 % 05/28/18 13:13 Triglycerides 214 mg/dL (2-149) H 06/01/18 05:50 Urine Color Yellow (Yellow) 05/28/18 17:57 Urine Turbidity Clear (Clear) 05/28/18 17:57 Urine pH 6.0 (5.0-7.0) 05/28/18 17:57 Ur Specific [place] > 1.030 (1.003-1.030) H 05/28/18 17:57 Urine Protein 100 mg/dl mg/dL (Negative) 05/28/18 17:57 Urine Glucose (UA) Neg mg/dL (Negative) 05/28/18 17:57 Urine Ketones 20 mg/dL (Negative) 05/28/18 17:57 Urine Blood Sm (Negative) 05/28/18 17:57 Urine Nitrite Neg (Negative) 05/28/18 17:57 Urine Bilirubin Neg (Negative) 05/28/18 17:57 Urine Urobilinogen 2.0 mg/dL (<2.0) 05/28/18 17:57 Ur Leukocyte Esterase Neg (Negative) 05/28/18 17:57 Urine WBC (Auto) 1.0 /HPF (0.0-6.0) 05/28/18 17:57 Urine RBC (Auto) 2.0 /HPF (0.0-6.0) 05/28/18 17:57 U Epithel Cells (Auto) < 1.0 /HPF (0-13.0) 05/28/18 17:57 Urine Mucus Few /HPF 05/28/18 17:57 Random Gentamicin 0.4 ug/mL (0.0-10.0) 06/01/18 05:50 Vancomycin Trough 7.2 ug/mL (5.0-20.0) 05/31/18 09:39 Urine Opiates Screen Presumptive negative 05/29/18 23:50 Urine Methadone Screen Presumptive negative 05/29/18 23:50 Ur Barbiturates Screen Presumptive negative 05/29/18 23:50 Ur Phencyclidine Scrn Presumptive negative 05/29/18 23:50 Ur Amphetamines Screen Presumptive negative 05/29/18 23:50 U Benzodiazepines Scrn Presumptive negative 05/29/18 23:50 Urine Cocaine Screen Presumptive negative 05/29/18 23:50 U Marijuana (THC) Screen Presumptive negative 05/29/18 23:50 Drugs of Abuse Note Disclamer 05/29/18 23:50 Active Medications - Current Medications Current Medications: Generic Name Dose Route Start Last Admin Trade Name Freq PRN Reason Stop Dose Admin Acetaminophen 650 mg 05/31/18 09:02 05/31/18 09:26 Tylenol FEEDTUBE 650 mg Q6H PRN Administration Non Cardiac Pain or Temp>100.5 Albuterol/Ipratropium 1 ampul 06/01/18 00:00 06/02/18 08:11 Duoneb *Not For Prn Use* IH 1 ampul Q8HRT DOMINICK Administration Amlodipine Besylate 10 mg 05/29/18 10:00 06/02/18 10:58 Norvasc PO 10 mg DAILY DOMINICK Administration Lipase/Protease/Amylase 1 each 05/28/18 22:[address] 10,500 Unit FEEDTUBE PRN PRN For Clogged Feeding Tube Baclofen 10 mg 05/28/18 23:00 06/02/18 10:58 Lioresal PO 10 mg BID DOMINICK Administration Budesonide 0.5 mg 05/28/18 22:45 06/02/18 08:11 Pulmicort IH 0.5 mg Q12HRT DOMINICK Administration Buspirone HCl 5 mg 05/28/18 23:00 06/02/18 11:00 Buspar PO 5 mg BID DOMINICK Administration Enoxaparin Sodium 40 mg 05/29/18 22:00 06/01/18 22:06 Lovenox SUB-Q 40 mg QDAY@2200 DOMINICK Administration Fentanyl Citrate 2,000 mcg in 100 mls @ 3.969 mls/hr 05/28/18 21:00 06/02/18 05:42 Fentanyl Drip Premix IV 4 mcg/kg/hr TITR DOMINICK 15.876 mls/hr Administration Protocol 1 MCG/KG/HR Propofol 1,000 mg in 100 mls @ 2.526 mls/hr 05/30/18 02:07 06/02/18 07:39 Diprivan 10 Mg/Ml IV 0 mcg/kg/min TITR DOMINICK 0 mls/hr Titration Protocol 5 MCG/KG/MIN Levofloxacin/Dextrose 750 mg in 150 mls @ 100 mls/hr 05/31/18 11:00 06/02/18 11:01 Levaquin 750mg/150ml IV 100 mls/hr Q24HR DOMINICK Administration Protocol Insulin Human Lispro 0 unit 06/01/18 10:00 06/02/18 05:49 Humalog SUB-Q 1 unit Q6HR DOMINICK Administration Protocol Lansoprazole 30 mg 05/30/18 10:00 06/02/18 10:59 Prevacid Solutab FEEDTUBE 30 mg QDAY DOMNIICK Administration Lisinopril 10 mg 05/29/18 10:00 06/02/18 10:57 Zestril PO 10 mg QDAY DOMINICK Administration Lorazepam 2 mg 05/31/18 08:39 06/02/18 11:04 Ativan IV 2 mg Q1H PRN Administration CIWA-Ar 8-15 Lorazepam 4 mg 05/31/18 08:39 Ativan IV Q1H PRN CIWA-Ar 16-25 Lorazepam 4 mg 05/31/18 08:39 Ativan IV Q15MIN PRN CIWA-Ar >25 Methylprednisolone Sodium Succinate 60 mg 05/31/18 14:00 06/02/18 05:43 Solu-Medrol IV 60 mg Q8HR DOMINICK Administration Metoprolol Tartrate 100 mg 05/31/18 10:00 06/02/18 10:57 Lopressor PO 100 mg BID DOMINICK Administration Quetiapine Fumarate 200 mg 06/01/18 22:00 06/02/18 10:59 Seroquel PO 200 mg BID DOMINICK Administration Simple Syrup 15 ml 05/28/18 22:45 Simple Syrup FEEDTUBE PRN PRN Hypoglycemia Simple Syrup 30 ml 05/28/18 22:45 Simple Syrup FEEDTUBE PRN PRN Hypoglycemia Sodium Bicarbonate 325 mg 05/28/18 22:45 Sodium Bicarbonate FEEDTUBE PRN PRN For Clogged Feeding Tube Sodium Chloride 10 ml 05/29/18 10:00 06/02/18 10:59 Sodium Chloride Flush Syringe 10 Ml IV 10 ml BID DOMINICK Administration Sodium Chloride 10 ml 05/28/18 22:45 05/31/18 13:32 Sodium Chloride Flush Syringe 10 Ml IV 10 ml PRN PRN Administration LINE FLUSH Nutrition/Malnutrition Assess - Dietary Evaluation Nutrition/Malnutrition Findings: Nutrition Notes Start: 05/29/18 09:32 Freq: Status: Active Protocol: Document 06/01/18 13:19 OL (Rec: 06/01/18 13:33 OL [id number]) Nutrition Notes Initial or Follow up Reassessment Current Diagnosis COPD,Hypertension,Respiratory Failure Other Pertinent Diagnosis COPD exacerbation, End-stage lung Dz Current Diet Vital High Protein at 45mL/hr Labs/Tests Na 152 Mg 2.4 Pertinent Medications Propofol at 5.052mL/hr ( provides 133 lipid kcal) Solumedrol Levophed gtt Height 5 ft Weight 86.5 kg [place] Body Weight (kg) 45.45 BMI 37.2 Weight Status Obese Subjective/Other Information Pt. tolerating Vital High Protein at goal rate of 45mL/ hr. Pt. discussed during interdisciplinary rounds. Flush per MD at this time. Burn Absent Trauma Absent #1 Nutrition Diagnosis Inadequate oral intake Diagnosis Progress(for reassessment Continues documentation) Is patient on ventilator? Yes Is Patient Ambulatory and/or Out of Bed No REE-([facility]-confined to bed) 1632.528 Kcal/Kg value to use for calculation 14 Approximate Energy Requirements Using 1211 kcal/Kg Calculation Used for Recommendations Kcal/kg Additional Notes Pro needs 2g/kg IBW: 91g/day Fluid needs 1ml/kcal Nutrition Intervention Nutrition Support: Increase Vital High Protein to 50mL/hr. Flush for hypernatermia per MD at this time 50mL flush q4h when hypernatermia resolved Kcal 1,200 Protein (gm) 105 Fluid (mL) 1,003 Goal #1 TF tolerance Goal #2 TF to meet 80-100% energy and protein needs Anticipated Discharge Needs: Unable to identify at this time Follow-Up By: 06/05/18 Additional Comments f/u: stable TF
--- NOTE | 2018-06-02 14:43 | Progress Note ---
Assessment and Plan Cultures: 05/28/2018 blood culture: no growth 05/28/2018 Resp culture: E. coli, Pseudomonas aeruginosa 05/31/2018 blood culture: no growth at 48 hours A/P: 58-year-old female with COPD with chronic respiratory failure on home oxygen admitted with shortness of breath and confusion: 1) Septic shock, likely secondary to left lower lobe pneumonia: requiring mechanical ventilation and ICU stay. Remains off pressors. Cultures growing resistant Pseudomonas, susceptible E.coli. 2) Acute on chronic respiratory failure with underlying COPD: On mechanical ventilation. 3) Acute encephalopathy: likely metabolic. 4) Spinal hardware noted on imaging, no concern for infection at present. Recs: continue Levofloxacin Day 3 of 10 Raul Gupta MD [facility] C: [phone] O: [phone] F: [phone] Subjective Date of service: 06/02/18 Interval history: No fever. Remains intubated on the vent. Objective - Exam Narrative Exam: Physical Exam: Constitutional: sedated, intubated Head, Ears, Nose: Normocephalic, atraumatic. External ears, nose normal Eyes: Conjunctivae/corneas clear. No icterus. No ptosis. Neck: Supple, no meningeal signs Oral: intubated Cardiovascular: S1, S2 normal. Respiratory: Good air entry, clear to auscultation bilaterally GI: Soft; bowel sounds +. No peritoneal signs Musculoskeletal: No pedal edema, no cyanosis. Skin: No rash or abscess Hem/Lymphatic: No palpable cervical or supraclavicular nodes. No lymphangitis Psych: no agitation. Neurological: sedated, intubated, on vent. - Constitutional Vitals: Vital Signs Temp Pulse Resp BP Pulse Ox 99.4 F 67 14 97/49 95 06/02/18 11:58 06/02/18 14:20 06/02/18 14:20 06/02/18 14:20 06/02/18 14:20 Temperature -Last 24 Hours Temperature 99.4 F Temperature 99.7 F Temperature 99.7 F Temperature 98.8 F Temperature 98.9 F Temperature 100.4 F Temperature 98.4 F - Labs CBC & Chem 7: 06/02/18 07:47 06/02/18 07:47 Labs: Abnormal lab results 06/01/18 06/02/18 06/02/18 Range/Units 18:08 00:39 04:11 Hgb (10.1-14.3) gm/dl MCV (79-97) fl MCH (28-32) pg MCHC (30-34) % RDW (13.2-15.2) % Plt Count (140-440) K/mm3 POC ABG pCO2 50.3 H (35-45) POC ABG pO2 72 L (80-105) Sodium (137-145) mmol/L Chloride (98-107) mmol/L Carbon Dioxide (22-30) mmol/L BUN (7-17) mg/dL Creatinine (0.7-1.2) mg/dL Glucose (65-100) mg/dL POC Glucose 156 H 156 H (70-105) 06/02/18 06/02/18 06/02/18 Range/Units 05:16 07:47 07:47 Hgb 10.0 L (10.1-14.3) gm/dl MCV 77 L (79-97) fl MCH 23 L (28-32) pg MCHC 29 L (30-34) % RDW 18.8 H (13.2-15.2) % Plt Count 103 L (140-440) K/mm3 POC ABG pCO2 (35-45) POC ABG pO2 (80-105) Sodium 148 H (137-145) mmol/L Chloride 109.4 H (98-107) mmol/L Carbon Dioxide 32 H (22-30) mmol/L BUN 21 H (7-17) mg/dL Creatinine 0.3 L (0.7-1.2) mg/dL Glucose 137 H (65-100) mg/dL POC Glucose 150 H (70-105) 06/02/18 Range/Units 11:46 Hgb (10.1-14.3) gm/dl MCV (79-97) fl MCH (28-32) pg MCHC (30-34) % RDW (13.2-15.2) % Plt Count (140-440) K/mm3 POC ABG pCO2 (35-45) POC ABG pO2 (80-105) Sodium (137-145) mmol/L Chloride (98-107) mmol/L Carbon Dioxide (22-30) mmol/L BUN (7-17) mg/dL Creatinine (0.7-1.2) mg/dL Glucose (65-100) mg/dL POC Glucose 150 H (70-105)
[2018-06-02] MEDS: LOVENOX SUB-Q SCH (21:59)
[2018-06-03] MEDS: HumaLOG SUB-Q SCH ×4 (00:23→17:29)
[2018-06-03] MEDS: FREE WATER PO SCH ×6 (02:10→21:03)
[2018-06-03 05:21] LABS: Mean Corpuscular HGB Conc 30 % (30-34); Mean Corpuscular Volume 76 fl (79-97); Red Blood Count 4.39 M/mm3 (3.65-5.03); Red Cell Distribution Width 19.1 % (13.2-15.2)
[2018-06-03 05:25] LABS: Hematocrit 33.3 % (30.3-42.9); Hemoglobin 10.1 gm/dl (10.1-14.3); Platelet Count 99 K/mm3 (140-440)
[2018-06-03 05:42] LABS: BUN/Creatinine Ratio 77; Blood Urea Nitrogen 23 mg/dL (7-17); Calcium 8.7 mg/dL (8.4-10.2); Hemolysis Index 11
[2018-06-03] MEDS: SOLU-Medrol IV SCH ×3 (06:03→21:00)
[2018-06-03] MEDS: ATIVAN IV PRN ×3 (07:22→20:58)
[2018-06-03] MEDS: fentaNYL DRIP Premix 2,000 MCG/100 ML BAG IV SCH ×2 (07:30→21:03)
[2018-06-03] MEDS: PULMICORT IH SCH ×2 (07:48→19:47)
[2018-06-03] MEDS: DUONEB *Not for PRN Use IH SCH ×4 (07:48→23:30)
[2018-06-03] MEDS: LEVAQUIN 750MG/150ML 750 MG/150 ML BAG IV SCH (09:19)
[2018-06-03] MEDS: BUSPAR PO SCH ×2 (09:20→21:00)
[2018-06-03] MEDS: LIORESAL PO SCH ×2 (09:20→21:01)
[2018-06-03] MEDS: PREVACID SOLUTAB FEEDTUBE SCH (09:20)
[2018-06-03] MEDS: SODIUM CHLORIDE FLUSH SYRINGE 10 ML IV SCH ×2 (09:21→21:02)
[2018-06-03] MEDS: NORVASC PO SCH (09:21)
[2018-06-03] MEDS: ZESTRIL PO SCH (10:00)
--- NOTE | 2018-06-03 10:34 | Progress Note ---
Assessment and Plan -Septic Shock suspected LLL pneumonia, SOFA score >2 -Acute on chronic combined( hypoxic-hypercapnic) respiratory failure s/p ETT on MVS -Severe AE COPD -AMS with Acute encephalopathy -Macrocytosis -GNR pneumonia, probably secondary to aspiration -Acute encephalaopthy( toxic, metabolic) -History of substance abuse -Thrombocytopenia( multifactorial) -Hypernatremia -Hyperchloremia -Continue full MVS, decrease PEEP 6 -Wean supplemental oxygen to keep O2 sats 88-90% -Lung protective strategies -Oxygen restrictive strategies -ABGs/CXR in the morning -Antibiotics per ID -VAP bundle addressed -Daily SAT's & SBT's per protocol -Sedation target for RASS 0 to -1 -Stress ulcer prophylaxis -VTE prophylaxis, continue SCDs, await HIT panel -Tube feedings, with free water flushes. -Steroid taper -Chronic home medications -With macrocytosis, and history of drug use, possible alcohol use disorder, c ontinue CIWA protocol -Aspiration precautions -Accuchecks with glycemic control. Target glucose of 140-180 mg/dL -Continue bronchodilators with pulmonary hygiene per RT -Maintenance of sleep -wake cycle -Mobility as tolerated by hemodynamics -Influenza and pneumonia vaccination per protocol Discussed in ICU-IDT rounds with care team PROGNOSIS GUARDED CONDITION: CRITICAL CODE STATUS: FULL CODE The high probability of a clinically significant, sudden or life-threatening deterioration of the [respiratory, neurology,hematology] system(s) required my full and direct attention, intervention and personal management. The aggregate critical care time was [35] minutes without overlap. Time includes spent on; [x] Data Review and interpretation [x] Patient assessment and monitoring of vital signs [x] Documentation [x] Medication orders and management Subjective Date of service: 06/03/18 Interval history: Patient is seen today for: acute hypoxemic-hypercapnic respiratory failure, AE- COPD, acute encephaloapthy, h/o polysubstance abuse, obese Seen and examined at bedside; 24hour events reviewed; nursing and respiratory care staff consulted; no adverse overnight events reported to me; No fevers, no vomiting Remains on full mechanical ventilatory support, on going agitation On fentanyl at 1mcg VTE prophylaxis on hold, SCDs on . HIT panel pending Levofloxacin day #10 RUExt PICC line, Harley catheter in place Vent AC 14/450/8/60% ABG 7.42/50.4/65/33 Discussed in ICU-IDT rounds Objective - Exam Narrative Exam: Constitutional: appears uncomfortable, other Eyes: non-icteric ENT: oropharynx moist, other (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) Neck: supple, no lymphadenopathy, no JVD, other (no thyromegaly) Effort: mildly labored Ascultation: Bilateral: diminished breath sounds, rales Percussion: Bilateral: not dull Cardiovascular: regular rate and rhythm, murmur noted (ANGELO) Gastrointestinal: normoactive bowel sounds, soft, non-tender, non-distended Integumentary: normal Extremities: no cyanosis, no edema, pink and warm, pulses normal Neurologic: non-focal exam (grossly) Psychiatric: other (unable to assess) Vital Signs - 12hr 06/02/18 06/02/18 06/02/18 22:40 22:46 22:51 Temperature Pulse Rate 93 H 126 H 127 H Pulse Rate [ Anterior Bilateral Throughout] Pulse Rate [ From Monitor] Respiratory 20 14 13 Rate Respiratory Rate [Anterior Bilateral Throughout] Blood Pressure 105/58 O2 Sat by Pulse 97 96 96 Oximetry 06/02/18 06/02/18 06/02/18 23:00 23:11 23:21 Temperature Pulse Rate 131 H 120 H 119 H Pulse Rate [ Anterior Bilateral Throughout] Pulse Rate [ From Monitor] Respiratory 15 13 17 Rate Respiratory Rate [Anterior Bilateral Throughout] Blood Pressure 122/66 122/66 130/64 O2 Sat by Pulse 94 94 94 Oximetry 06/02/18 06/02/18 06/02/18 23:30 23:37 23:41 Temperature Pulse Rate 123 H 125 H 119 H Pulse Rate [ Anterior Bilateral Throughout] Pulse Rate [ From Monitor] Respiratory 21 14 Rate Respiratory Rate [Anterior Bilateral Throughout] Blood Pressure 108/55 130/64 108/55 O2 Sat by Pulse 93 94 93 Oximetry 06/02/18 06/03/18 06/03/18 23:51 00:00 00:11 Temperature 99.6 F Pulse Rate 114 H 119 H 113 H Pulse Rate [ Anterior Bilateral Throughout] Pulse Rate [ From Monitor] Respiratory 14 19 13 Rate Respiratory Rate [Anterior Bilateral Throughout] Blood Pressure 114/57 118/62 108/55 O2 Sat by Pulse 93 93 94 Oximetry 06/03/18 06/03/18 06/03/18 00:21 00:30 00:41 Temperature Pulse Rate 119 H 113 H 112 H Pulse Rate [ Anterior Bilateral Throughout] Pulse Rate [ From Monitor] Respiratory 14 14 13 Rate Respiratory Rate [Anterior Bilateral Throughout] Blood Pressure 107/59 115/59 107/59 O2 Sat by Pulse 94 93 94 Oximetry 06/03/18 06/03/18 06/03/18 00:51 01:00 01:11 Temperature Pulse Rate 118 H 118 H 112 H Pulse Rate [ Anterior Bilateral Throughout] Pulse Rate [ From Monitor] Respiratory 18 13 14 Rate Respiratory Rate [Anterior Bilateral Throughout] Blood Pressure 122/59 122/59 115/59 O2 Sat by Pulse 94 94 94 Oximetry 06/03/18 06/03/18 06/03/18 01:21 01:30 01:41 Temperature Pulse Rate 109 H 115 H 120 H Pulse Rate [ Anterior Bilateral Throughout] Pulse Rate [ From Monitor] Respiratory 14 16 19 Rate Respiratory Rate [Anterior Bilateral Throughout] Blood Pressure 110/63 120/64 120/64 O2 Sat by Pulse 94 93 94 Oximetry 06/03/18 06/03/18 06/03/18 01:51 02:00 02:11 Temperature Pulse Rate 117 H 107 H 107 H Pulse Rate [ Anterior Bilateral Throughout] Pulse Rate [ From Monitor] Respiratory 15 15 15 Rate Respiratory Rate [Anterior Bilateral Throughout] Blood Pressure 116/61 123/61 123/61 O2 Sat by Pulse 94 94 94 Oximetry 06/03/18 06/03/18 06/03/18 02:21 02:30 02:41 Temperature Pulse Rate 146 H 125 H 110 H Pulse Rate [ Anterior Bilateral Throughout] Pulse Rate [ From Monitor] Respiratory 19 17 15 Rate Respiratory Rate [Anterior Bilateral Throughout] Blood Pressure 119/55 121/67 121/67 O2 Sat by Pulse 94 93 94 Oximetry 06/03/18 06/03/18 06/03/18 02:51 03:00 03:11 Temperature Pulse Rate 123 H 108 H 138 H Pulse Rate [ Anterior Bilateral Throughout] Pulse Rate [ From Monitor] Respiratory 16 14 17 Rate Respiratory Rate [Anterior Bilateral Throughout] Blood Pressure 132/66 108/56 108/56 O2 Sat by Pulse 93 94 94 Oximetry 06/03/18 06/03/18 06/03/18 03:21 03:30 03:41 Temperature Pulse Rate 136 H 114 H 107 H Pulse Rate [ Anterior Bilateral Throughout] Pulse Rate [ From Monitor] Respiratory 35 H 19 15 Rate Respiratory Rate [Anterior Bilateral Throughout] Blood Pressure 108/56 117/60 117/60 O2 Sat by Pulse 93 93 94 Oximetry 06/03/18 06/03/18 06/03/18 03:51 04:00 04:11 Temperature 100.7 F H Pulse Rate 104 H 103 H 134 H Pulse Rate [ Anterior Bilateral Throughout] Pulse Rate [ From Monitor] Respiratory 18 16 9 L Rate Respiratory Rate [Anterior Bilateral Throughout] Blood Pressure 100/54 106/51 106/51 O2 Sat by Pulse 95 94 94 Oximetry 06/03/18 06/03/18 06/03/18 04:20 04:25 04:30 Temperature Pulse Rate 124 H 118 H 132 H Pulse Rate [ Anterior Bilateral Throughout] Pulse Rate [ From Monitor] Respiratory 14 12 Rate Respiratory Rate [Anterior Bilateral Throughout] Blood Pressure 141/73 141/73 141/73 O2 Sat by Pulse 94 95 92 Oximetry 06/03/18 06/03/18 06/03/18 04:41 04:51 05:00 Temperature Pulse Rate 131 H 113 H 107 H Pulse Rate [ Anterior Bilateral Throughout] Pulse Rate [ From Monitor] Respiratory 20 15 16 Rate Respiratory Rate [Anterior Bilateral Throughout] Blood Pressure 140/65 140/68 104/55 O2 Sat by Pulse 95 94 94 Oximetry 06/03/18 06/03/18 06/03/18 05:11 05:21 05:30 Temperature Pulse Rate 107 H 105 H 97 H Pulse Rate [ Anterior Bilateral Throughout] Pulse Rate [ From Monitor] Respiratory 14 16 14 Rate Respiratory Rate [Anterior Bilateral Throughout] Blood Pressure 104/55 109/55 97/51 O2 Sat by Pulse 95 96 95 Oximetry 06/03/18 06/03/18 06/03/18 05:41 05:51 06:00 Temperature Pulse Rate 96 H 89 87 Pulse Rate [ Anterior Bilateral Throughout] Pulse Rate [ From Monitor] Respiratory 16 16 15 Rate Respiratory Rate [Anterior Bilateral Throughout] Blood Pressure 97/51 97/48 94/48 O2 Sat by Pulse 96 96 95 Oximetry 06/03/18 06/03/18 06/03/18 06:11 06:21 06:30 Temperature Pulse Rate 90 86 85 Pulse Rate [ Anterior Bilateral Throughout] Pulse Rate [ From Monitor] Respiratory 14 14 15 Rate Respiratory Rate [Anterior Bilateral Throughout] Blood Pressure 94/48 99/49 96/48 O2 Sat by Pulse 96 97 96 Oximetry 06/03/18 06/03/18 06/03/18 06:41 06:51 07:00 Temperature Pulse Rate 85 92 H 89 Pulse Rate [ Anterior Bilateral Throughout] Pulse Rate [ From Monitor] Respiratory 14 22 22 Rate Respiratory Rate [Anterior Bilateral Throughout] Blood Pressure 96/48 104/53 122/62 O2 Sat by Pulse 96 97 97 Oximetry 06/03/18 06/03/18 06/03/18 07:11 07:21 07:31 Temperature Pulse Rate 139 H 136 H 116 H Pulse Rate [ Anterior Bilateral Throughout] Pulse Rate [ From Monitor] Respiratory 12 10 L 22 Rate Respiratory Rate [Anterior Bilateral Throughout] Blood Pressure 122/62 122/62 122/60 O2 Sat by Pulse 95 95 94 Oximetry 06/03/18 06/03/18 06/03/18 07:41 07:49 07:51 Temperature Pulse Rate 105 H 102 H 102 H Pulse Rate [ 102 H Anterior Bilateral Throughout] Pulse Rate [ From Monitor] Respiratory 13 13 Rate Respiratory 14 Rate [Anterior Bilateral Throughout] Blood Pressure 122/60 111/57 179/82 O2 Sat by Pulse 95 95 95 Oximetry 06/03/18 06/03/18 06/03/18 08:00 08:03 08:10 Temperature 98.9 F Pulse Rate 99 H 100 H Pulse Rate [ 83 Anterior Bilateral Throughout] Pulse Rate [ 99 H From Monitor] Respiratory 14 Rate Respiratory 14 Rate [Anterior Bilateral Throughout] Blood Pressure 108/55 O2 Sat by Pulse 93 Oximetry 06/03/18 06/03/18 06/03/18 08:11 08:21 08:30 Temperature Pulse Rate 91 H 90 90 Pulse Rate [ Anterior Bilateral Throughout] Pulse Rate [ From Monitor] Respiratory 14 14 14 Rate Respiratory Rate [Anterior Bilateral Throughout] Blood Pressure 108/55 101/48 99/49 O2 Sat by Pulse 93 93 93 Oximetry 06/03/18 06/03/18 06/03/18 08:41 08:51 09:00 Temperature Pulse Rate 87 84 82 Pulse Rate [ Anterior Bilateral Throughout] Pulse Rate [ From Monitor] Respiratory 14 14 14 Rate Respiratory Rate [Anterior Bilateral Throughout] Blood Pressure 99/49 101/48 99/45 O2 Sat by Pulse 94 93 94 Oximetry 06/03/18 06/03/18 06/03/18 09:11 09:21 09:30 Temperature Pulse Rate 85 86 88 Pulse Rate [ Anterior Bilateral Throughout] Pulse Rate [ From Monitor] Respiratory 26 H 24 15 Rate Respiratory Rate [Anterior Bilateral Throughout] Blood Pressure 99/45 104/50 114/51 O2 Sat by Pulse 97 97 96 Oximetry 06/03/18 06/03/18 06/03/18 09:41 09:51 10:00 Temperature Pulse Rate 111 H 130 H 125 H Pulse Rate [ Anterior Bilateral Throughout] Pulse Rate [ From Monitor] Respiratory 17 19 17 Rate Respiratory Rate [Anterior Bilateral Throughout] Blood Pressure 114/51 113/57 110/59 O2 Sat by Pulse 98 97 95 Oximetry CBC and BMP: 06/12/18 00:19 06/11/18 06:08 ABG, PT/INR, D-dimer: ABG POC ABG pH 7.424 (7.35-7.45) 06/03/18 04:28 POC ABG pCO2 50.4 (35-45) H 06/03/18 04:28 POC ABG pO2 65 (80-105) L 06/03/18 04:28 POC ABG HCO3 33.0 (22-26 mml/L) 06/03/18 04:28 POC ABG Total CO2 34 (23-27mmol/L) 06/03/18 04:28 POC ABG O2 Sat 92 06/03/18 04:28 PT/INR, D-dimer D-Dimer 1062.49 ng/mlDDU (0-234) H 05/28/18 13:13 Abnormal lab findings: Abnormal Labs 05/28/18 05/28/18 05/28/18 13:13 13:13 13:13 Hgb 9.7 L MCV 77 L MCH 23 L MCHC 29 L RDW 19.2 H Plt Count Lymph % (Auto) 8.5 L [place] % (Auto) 11.3 H Lymph # 0.8 L [place] # 1.1 H Seg Neutrophils % 79.8 H Seg Neuts % (Manual) Lymphocytes % (Manual) Nucleated RBC % Seg Neutrophils # Man Lymphocytes # (Manual) D-Dimer 1062.49 H POC ABG pH POC ABG pCO2 POC ABG pO2 Sodium Chloride Carbon Dioxide BUN 24 H Creatinine 0.6 L Glucose POC Glucose Calcium Magnesium Albumin 3.5 L Triglycerides Ur Specific [place] 05/28/18 05/28/18 05/28/18 13:22 14:50 16:05 Hgb MCV MCH MCHC RDW Plt Count Lymph % (Auto) [place] % (Auto) Lymph # [place] # Seg Neutrophils % Seg Neuts % (Manual) Lymphocytes % (Manual) Nucleated RBC % Seg Neutrophils # Man Lymphocytes # (Manual) D-Dimer POC ABG pH 7.249 L 7.126 L POC ABG pCO2 68.9 H POC ABG pO2 77 L Sodium Chloride 109.1 H Carbon Dioxide BUN 22 H Creatinine 0.5 L Glucose POC Glucose Calcium 7.5 L Magnesium Albumin Triglycerides Ur Specific [place] 05/28/18 05/28/18 05/28/18 17:57 18:48 22:47 Hgb MCV MCH MCHC RDW Plt Count Lymph % (Auto) [place] % (Auto) Lymph # [place] # Seg Neutrophils % Seg Neuts % (Manual) Lymphocytes % (Manual) Nucleated RBC % Seg Neutrophils # Man Lymphocytes # (Manual) D-Dimer POC ABG pH 7.195 L 7.312 L POC ABG pCO2 57.5 H POC ABG pO2 57 L 73 L Sodium Chloride Carbon Dioxide BUN Creatinine Glucose POC Glucose Calcium Magnesium Albumin Triglycerides Ur Specific [place] > 1.030 H 05/30/18 05/30/18 05/31/18 06:10 10:42 04:23 Hgb MCV MCH MCHC RDW Plt Count Lymph % (Auto) [place] % (Auto) Lymph # [place] # Seg Neutrophils % Seg Neuts % (Manual) Lymphocytes % (Manual) Nucleated RBC % Seg Neutrophils # Man Lymphocytes # (Manual) D-Dimer POC ABG pH 7.214 L 7.253 L POC ABG pCO2 64.5 H 56.4 H POC ABG pO2 78 L 74 L Sodium Chloride Carbon Dioxide BUN Creatinine Glucose POC Glucose Calcium Magnesium Albumin Triglycerides Ur Specific [place] 05/31/18 05/31/18 05/31/18 06:30 08:50 08:50 Hgb 9.3 L MCV 78 L MCH 23 L MCHC 29 L RDW 19.8 H Plt Count 131 L Lymph % (Auto) [place] % (Auto) Lymph # [place] # Seg Neutrophils % Seg Neuts % (Manual) 98.0 H Lymphocytes % (Manual) 2.0 L Nucleated RBC % 1.0 H Seg Neutrophils # Man 8.4 H Lymphocytes # (Manual) 0.2 L D-Dimer POC ABG pH POC ABG pCO2 POC ABG pO2 Sodium 153 H D Chloride 117.4 H Carbon Dioxide BUN 18 H Creatinine 0.4 L Glucose 159 H POC Glucose 146 H Calcium 8.3 L Magnesium Albumin Triglycerides Ur Specific [place] 06/01/18 06/01/18 06/01/18 00:11 03:32 05:50 Hgb 9.8 L MCV 77 L MCH 23 L MCHC 29 L RDW 20.1 H Plt Count 122 L Lymph % (Auto) [place] % (Auto) Lymph # [place] # Seg Neutrophils % Seg Neuts % (Manual) Lymphocytes % (Manual) Nucleated RBC % Seg Neutrophils # Man Lymphocytes # (Manual) D-Dimer POC ABG pH 7.465 H POC ABG pCO2 POC ABG pO2 Sodium Chloride Carbon Dioxide BUN Creatinine Glucose POC Glucose 149 H Calcium Magnesium Albumin Triglycerides Ur Specific [place] 06/01/18 06/01/18 06/01/18 05:50 05:50 05:51 Hgb MCV MCH MCHC RDW Plt Count Lymph % (Auto) [place] % (Auto) Lymph # [place] # Seg Neutrophils % Seg Neuts % (Manual) Lymphocytes % (Manual) Nucleated RBC % Seg Neutrophils # Man Lymphocytes # (Manual) D-Dimer POC ABG pH POC ABG pCO2 POC ABG pO2 Sodium 152 H Chloride 113.7 H Carbon Dioxide BUN 18 H Creatinine 0.3 L Glucose 146 H POC Glucose 146 H Calcium Magnesium 2.40 H Albumin Triglycerides 214 H Ur Specific [place] 06/01/18 06/01/18 06/01/18 10:40 11:52 12:06 Hgb MCV MCH MCHC RDW Plt Count Lymph % (Auto) [place] % (Auto) Lymph # [place] # Seg Neutrophils % Seg Neuts % (Manual) Lymphocytes % (Manual) Nucleated RBC % Seg Neutrophils # Man Lymphocytes # (Manual) D-Dimer POC ABG pH POC ABG pCO2 48.4 H POC ABG pO2 Sodium Chloride Carbon Dioxide BUN Creatinine Glucose POC Glucose 147 H 138 H Calcium Magnesium Albumin Triglycerides Ur Specific [place] 06/01/18 06/02/18 06/02/18 18:08 00:39 04:11 Hgb MCV MCH MCHC RDW Plt Count Lymph % (Auto) [place] % (Auto) Lymph # [place] # Seg Neutrophils % Seg Neuts % (Manual) Lymphocytes % (Manual) Nucleated RBC % Seg Neutrophils # Man Lymphocytes # (Manual) D-Dimer POC ABG pH POC ABG pCO2 50.3 H POC ABG pO2 72 L Sodium Chloride Carbon Dioxide BUN Creatinine Glucose POC Glucose 156 H 156 H Calcium Magnesium Albumin Triglycerides Ur Specific [place] 06/02/18 06/02/18 06/02/18 05:16 07:47 07:47 Hgb 10.0 L MCV 77 L MCH 23 L MCHC 29 L RDW 18.8 H Plt Count 103 L Lymph % (Auto) [place] % (Auto) Lymph # [place] # Seg Neutrophils % Seg Neuts % (Manual) Lymphocytes % (Manual) Nucleated RBC % Seg Neutrophils # Man Lymphocytes # (Manual) D-Dimer POC ABG pH POC ABG pCO2 POC ABG pO2 Sodium 148 H Chloride 109.4 H Carbon Dioxide 32 H BUN 21 H Creatinine 0.3 L Glucose 137 H POC Glucose 150 H Calcium Magnesium Albumin Triglycerides Ur Specific [place] 06/02/18 06/02/18 06/02/18 11:46 17:51 19:58 Hgb MCV MCH MCHC RDW Plt Count Lymph % (Auto) [place] % (Auto) Lymph # [place] # Seg Neutrophils % Seg Neuts % (Manual) Lymphocytes % (Manual) Nucleated RBC % Seg Neutrophils # Man Lymphocytes # (Manual) D-Dimer POC ABG pH POC ABG pCO2 POC ABG pO2 Sodium Chloride Carbon Dioxide BUN Creatinine Glucose POC Glucose 150 H 135 H 131 H Calcium Magnesium Albumin Triglycerides Ur Specific [place] 06/03/18 06/03/18 06/03/18 04:28 04:59 04:59 Hgb MCV 76 L MCH 23 L MCHC RDW 19.1 H Plt Count 99 L Lymph % (Auto) [place] % (Auto) Lymph # [place] # Seg Neutrophils % Seg Neuts % (Manual) Lymphocytes % (Manual) Nucleated RBC % Seg Neutrophils # Man Lymphocytes # (Manual) D-Dimer POC ABG pH POC ABG pCO2 50.4 H POC ABG pO2 65 L Sodium Chloride Carbon Dioxide BUN 23 H Creatinine 0.3 L Glucose 167 H POC Glucose Calcium Magnesium Albumin Triglycerides Ur Specific [place] 06/03/18 05:17 Hgb MCV MCH MCHC RDW Plt Count Lymph % (Auto) [place] % (Auto) Lymph # [place] # Seg Neutrophils % Seg Neuts % (Manual) Lymphocytes % (Manual) Nucleated RBC % Seg Neutrophils # Man Lymphocytes # (Manual) D-Dimer POC ABG pH POC ABG pCO2 POC ABG pO2 Sodium Chloride Carbon Dioxide BUN Creatinine Glucose POC Glucose 153 H Calcium Magnesium Albumin Triglycerides Ur Specific [place] Allied health notes reviewed: RT
--- NOTE | 2018-06-03 12:36 | Progress Note ---
Assessment and Plan Cultures: 05/28/2018 blood culture: no growth 05/28/2018 Resp culture: E. coli, Pseudomonas aeruginosa 05/31/2018 blood culture: no growth at 48 hours A/P: 58-year-old female with COPD with chronic respiratory failure on home oxygen admitted with shortness of breath and confusion: 1) Septic shock, likely secondary to left lower lobe pneumonia: requiring mechanical ventilation and ICU stay. Remains off pressors. Cultures growing resistant Pseudomonas, susceptible E.coli. On abx. 2) Acute on chronic respiratory failure with underlying COPD: On mechanical ventilation. 3) Acute encephalopathy: likely metabolic. Agitated at times, sedated. 4) Spinal hardware noted on imaging, no concern for infection at present. Recs: continue Levofloxacin Day 4 of 10 Raul Gupta MD [facility] C: [phone] O: [phone] F: [phone] Subjective Date of service: 06/03/18 Interval history: Low grade temperatures. Remains sedated, on the vent. No other issues, discussed with RN. Apparently gets agitated requiring fentanyl. Objective - Exam Narrative Exam: Physical Exam: Constitutional: sedated, intubated Head, Ears, Nose: Normocephalic, atraumatic. External ears, nose normal Eyes: Conjunctivae/corneas clear. No icterus. No ptosis. Neck: Supple, no meningeal signs Oral: intubated Cardiovascular: S1, S2 normal. Respiratory: Good air entry, clear to auscultation bilaterally GI: Soft; bowel sounds +. No peritoneal signs Musculoskeletal: No pedal edema, no cyanosis. Skin: No rash or abscess Hem/Lymphatic: No palpable cervical or supraclavicular nodes. No lymphangitis Psych: no agitation. Neurological: sedated, intubated, on vent. - Constitutional Vitals: Vital Signs Temp Pulse Resp BP Pulse Ox 98.9 F 113 H 17 129/68 96 06/03/18 08:00 06/03/18 12:05 06/03/18 10:00 06/03/18 12:05 06/03/18 12:05 Temperature -Last 24 Hours Temperature 98.9 F Temperature 100.7 F Temperature 99.6 F Temperature 99.7 F Temperature 98.1 F - Labs CBC & Chem 7: 06/03/18 04:59 06/03/18 04:59 Labs: Abnormal lab results 06/02/18 06/02/18 06/03/18 Range/Units 17:51 19:58 04:28 MCV (79-97) fl MCH (28-32) pg RDW (13.2-15.2) % Plt Count (140-440) K/mm3 POC ABG pCO2 50.4 H (35-45) POC ABG pO2 65 L (80-105) BUN (7-17) mg/dL Creatinine (0.7-1.2) mg/dL Glucose (65-100) mg/dL POC Glucose 135 H 131 H (70-105) 06/03/18 06/03/18 06/03/18 Range/Units 04:59 04:59 05:17 MCV 76 L (79-97) fl MCH 23 L (28-32) pg RDW 19.1 H (13.2-15.2) % Plt Count 99 L (140-440) K/mm3 POC ABG pCO2 (35-45) POC ABG pO2 (80-105) BUN 23 H (7-17) mg/dL Creatinine 0.3 L (0.7-1.2) mg/dL Glucose 167 H (65-100) mg/dL POC Glucose 153 H (70-105) 06/03/18 Range/Units 12:20 MCV (79-97) fl MCH (28-32) pg RDW (13.2-15.2) % Plt Count (140-440) K/mm3 POC ABG pCO2 (35-45) POC ABG pO2 (80-105) BUN (7-17) mg/dL Creatinine (0.7-1.2) mg/dL Glucose (65-100) mg/dL POC Glucose 155 H (70-105)
[2018-06-03] MEDS: LOPRESSOR PO SCH ×2 (13:08→21:01)
--- NOTE | 2018-06-03 13:25 | Progress Note ---
Assessment and Plan Assessment and plan: Septic shock -likely secondary to left lower lobe pneumonia -Off IV pressor -On IV levofloxacin -Sputum culture positive for Pseudomonas/Escherichia coli. -Blood cultures negative Pseudomonas/E.coli PNA -Cont IV levofloxacin Acute on chronic hypoxic and hypercapnic respiratory failure -Probably secondary to the pneumonia versus acute COPD exacerbation -Status post intubation on MV -Pulmonology following Acute metabolic encephalopathy -We'll continue to monitor clinically Hypertension -Blood pressure controlled on current antihypertensives Acute thrombocytopenia -Platelet level continues to trend down, will monitor -Lovenox discontinued -HIT test pending Hypernatremia -Improved, will monitor Nutrition -On NG tube feeding -Dietitian following DVT prophylaxis with SCD due to thrombocytopenia and GI prophylaxis with PPI Disposition: Continue ICU care History Interval history: Pt is intubated and sedated. No issues reported. Hospitalist Physical - Constitutional Vitals: Temp Pulse Resp BP Pulse Ox 98.7 F 111 H 17 124/63 96 06/03/18 12:00 06/03/18 13:08 06/03/18 12:41 06/03/18 13:08 06/03/18 12:41 General appearance: Present: no acute distress, other (pt is intubated.) - EENT Eyes: Present: PERRL ENT: clear oral mucosa, other (NGT noted) - Neck Neck: Present: supple - Respiratory Respiratory effort: normal Respiratory: bilateral: CTA - Cardiovascular Rhythm: regular (with tachycardia) Heart Sounds: Present: S1 & S2 - Extremities Extremities: No edema - Abdominal General gastrointestinal: soft, non-tender, non-distended, normal bowel sounds - Integumentary Integumentary: Present: clear, warm, dry - Neurologic Neurologic: other (patient is intubated and sedated) Results - Labs CBC & Chem 7: 06/03/18 04:59 06/03/18 04:59 Labs: Laboratory Last Values WBC 8.3 K/mm3 (4.5-11.0) 06/03/18 04:59 RBC 4.39 M/mm3 (3.65-5.03) 06/03/18 04:59 Hgb 10.1 gm/dl (10.1-14.3) 06/03/18 04:59 Hct 33.3 % (30.3-42.9) 06/03/18 04:59 MCV 76 fl (79-97) L 06/03/18 04:59 MCH 23 pg (28-32) L 06/03/18 04:59 MCHC 30 % (30-34) 06/03/18 04:59 RDW 19.1 % (13.2-15.2) H 06/03/18 04:59 Plt Count 99 K/mm3 (140-440) L 06/03/18 04:59 Lymph % (Auto) 8.5 % (13.4-35.0) L 05/28/18 13:13 [place] % (Auto) 11.3 % (0.0-7.3) H 05/28/18 13:13 Eos % (Auto) 0.0 % (0.0-4.3) 05/28/18 13:13 Baso % (Auto) 0.4 % (0.0-1.8) 05/28/18 13:13 Lymph # 0.8 K/mm3 (1.2-5.4) L 05/28/18 13:13 [place] # 1.1 K/mm3 (0.0-0.8) H 05/28/18 13:13 Eos # 0.0 K/mm3 (0.0-0.4) 05/28/18 13:13 Baso # 0.0 K/mm3 (0.0-0.1) 05/28/18 13:13 Add Manual Diff Complete 05/31/18 08:50 Total Counted 100 05/31/18 08:50 Seg Neutrophils % [employer]ing [employer] Advisor 05/31/18 08:50 Seg Neuts % (Manual) 98.0 % (40.0-70.0) H 05/31/18 08:50 Band Neutrophils % 0 % 05/31/18 08:50 Lymphocytes % (Manual) 2.0 % (13.4-35.0) L 05/31/18 08:50 Reactive Lymphs % (Man) 0 % 05/31/18 08:50 Monocytes % (Manual) 0 % (0.0-7.3) 05/31/18 08:50 Eosinophils % (Manual) 0 % (0.0-4.3) 05/31/18 08:50 Basophils % (Manual) 0 % (0.0-1.8) 05/31/18 08:50 Metamyelocytes % 0 % 05/31/18 08:50 Myelocytes % 0 % 05/31/18 08:50 Promyelocytes % 0 % 05/31/18 08:50 Blast Cells % 0 % 05/31/18 08:50 Nucleated RBC % 1.0 % (0.0-0.9) H 05/31/18 08:50 Seg Neutrophils # 7.7 K/mm3 (1.8-7.7) 05/28/18 13:13 Seg Neutrophils # Man 8.4 K/mm3 (1.8-7.7) H 05/31/18 08:50 Band Neutrophils # 0.0 K/mm3 05/31/18 08:50 Lymphocytes # (Manual) 0.2 K/mm3 (1.2-5.4) L 05/31/18 08:50 Abs React Lymphs (Man) 0.0 K/mm3 05/31/18 08:50 Monocytes # (Manual) 0.0 K/mm3 (0.0-0.8) 05/31/18 08:50 Eosinophils # (Manual) 0.0 K/mm3 (0.0-0.4) 05/31/18 08:50 Basophils # (Manual) 0.0 K/mm3 (0.0-0.1) 05/31/18 08:50 Metamyelocytes # 0.0 K/mm3 05/31/18 08:50 Myelocytes # 0.0 K/mm3 05/31/18 08:50 Promyelocytes # 0.0 K/mm3 05/31/18 08:50 Blast Cells # 0.0 K/mm3 05/31/18 08:50 WBC Morphology Not Reportable 05/31/18 08:50 Hypersegmented Neuts Not Reportable 05/31/18 08:50 Hyposegmented Neuts Not Reportable 05/31/18 08:50 Hypogranular Neuts Not Reportable 05/31/18 08:50 Smudge Cells Not Reportable 05/31/18 08:50 Toxic Granulation Not Reportable 05/31/18 08:50 Toxic Vacuolation Not Reportable 05/31/18 08:50 Dohle Bodies Not Reportable 05/31/18 08:50 Pelger-Huet Anomaly Not Reportable 05/31/18 08:50 Neha Rods Not Reportable 05/31/18 08:50 Platelet Estimate Consistent w auto 05/31/18 08:50 Clumped Platelets Not Reportable 05/31/18 08:50 Plt Clumps, EDTA Not Reportable 05/31/18 08:50 Large Platelets Not Reportable 05/31/18 08:50 Giant Platelets Not Reportable 05/31/18 08:50 Platelet Satelliting Not Reportable 05/31/18 08:50 Plt Morphology Comment Not Reportable 05/31/18 08:50 RBC Morphology Not Reportable 05/31/18 08:50 Dimorphic RBCs Not Reportable 05/31/18 08:50 Polychromasia Few 05/31/18 08:50 Hypochromasia Few 05/31/18 08:50 Poikilocytosis Not Reportable 05/31/18 08:50 Anisocytosis Not Reportable 05/31/18 08:50 Microcytosis Not Reportable 05/31/18 08:50 Macrocytosis Not Reportable 05/31/18 08:50 Spherocytes Not Reportable 05/31/18 08:50 Pappenheimer Bodies Not Reportable 05/31/18 08:50 Sickle Cells Not Reportable 05/31/18 08:50 Target Cells Not Reportable 05/31/18 08:50 Tear Drop Cells Not Reportable 05/31/18 08:50 Ovalocytes Not Reportable 05/31/18 08:50 Stomatocytes Rare 05/31/18 08:50 Helmet Cells Not Reportable 05/31/18 08:50 [place] Bodies Not Reportable 05/31/18 08:50 Adrian Rings Not Reportable 05/31/18 08:50 [place] Cells Not Reportable 05/31/18 08:50 Bite Cells Not Reportable 05/31/18 08:50 Crenated Cell Not Reportable 05/31/18 08:50 Elliptocytes Not Reportable 05/31/18 08:50 Acanthocytes (Spur) Not Reportable 05/31/18 08:50 Rouleaux Not Reportable 05/31/18 08:50 Hemoglobin C Crystals Not Reportable 05/31/18 08:50 Schistocytes Not Reportable 05/31/18 08:50 Malaria parasites Not Reportable 05/31/18 08:50 Hernan Bodies Not Reportable 05/31/18 08:50 Hem Pathologist Commnt No 05/31/18 08:50 D-Dimer 1062.49 ng/mlDDU (0-234) H 05/28/18 13:13 POC ABG pH 7.424 (7.35-7.45) 06/03/18 04:28 POC ABG pCO2 50.4 (35-45) H 06/03/18 04:28 POC ABG pO2 65 (80-105) L 06/03/18 04:28 POC ABG HCO3 33.0 (22-26 mml/L) 06/03/18 04:28 POC ABG Total CO2 34 (23-27mmol/L) 06/03/18 04:28 POC ABG O2 Sat 92 06/03/18 04:28 POC ABG Base Excess 9 ((-2) - (+3)mmol/L) 06/03/18 04:28 FiO2 60 % 06/03/18 04:28 Sodium 143 mmol/L (137-145) 06/03/18 04:59 Potassium 4.1 mmol/L (3.6-5.0) 06/03/18 04:59 Chloride 104.5 mmol/L (98-107) 06/03/18 04:59 Carbon Dioxide 29 mmol/L (22-30) 06/03/18 04:59 Anion Gap 14 mmol/L 06/03/18 04:59 BUN 23 mg/dL (7-17) H 06/03/18 04:59 Creatinine 0.3 mg/dL (0.7-1.2) L 06/03/18 04:59 Estimated GFR > 60 ml/min 06/03/18 04:59 BUN/Creatinine Ratio 77 % 06/03/18 04:59 Glucose 167 mg/dL (65-100) H 06/03/18 04:59 POC Glucose 155 (70-105) H 06/03/18 12:20 Lactic Acid 0.90 mmol/L (0.7-2.0) 05/28/18 14:50 Calcium 8.7 mg/dL (8.4-10.2) 06/03/18 04:59 Magnesium 2.40 mg/dL (1.7-2.3) H 06/01/18 05:50 Total Bilirubin 0.30 mg/dL (0.1-1.2) 05/28/18 13:13 AST 23 units/L (5-40) 05/28/18 13:13 ALT 11 units/L (7-56) 05/28/18 13:13 Alkaline Phosphatase 96 units/L (35-129) 05/28/18 13:13 Troponin T < 0.010 ng/mL (0.00-0.029) 05/28/18 13:13 Total Protein 6.6 g/dL (6.3-8.2) 05/28/18 13:13 Albumin 3.5 g/dL (3.9-5) L 05/28/18 13:13 Albumin/Globulin Ratio 1.1 % 05/28/18 13:13 Triglycerides 214 mg/dL (2-149) H 06/01/18 05:50 Urine Color Yellow (Yellow) 05/28/18 17:57 Urine Turbidity Clear (Clear) 05/28/18 17:57 Urine pH 6.0 (5.0-7.0) 05/28/18 17:57 Ur Specific [place] > 1.030 (1.003-1.030) H 05/28/18 17:57 Urine Protein 100 mg/dl mg/dL (Negative) 05/28/18 17:57 Urine Glucose (UA) Neg mg/dL (Negative) 05/28/18 17:57 Urine Ketones 20 mg/dL (Negative) 05/28/18 17:57 Urine Blood Sm (Negative) 05/28/18 17:57 Urine Nitrite Neg (Negative) 05/28/18 17:57 Urine Bilirubin Neg (Negative) 05/28/18 17:57 Urine Urobilinogen 2.0 mg/dL (<2.0) 05/28/18 17:57 Ur Leukocyte Esterase Neg (Negative) 05/28/18 17:57 Urine WBC (Auto) 1.0 /HPF (0.0-6.0) 05/28/18 17:57 Urine RBC (Auto) 2.0 /HPF (0.0-6.0) 05/28/18 17:57 U Epithel Cells (Auto) < 1.0 /HPF (0-13.0) 05/28/18 17:57 Urine Mucus Few /HPF 05/28/18 17:57 Random Gentamicin 0.4 ug/mL (0.0-10.0) 06/01/18 05:50 Vancomycin Trough 7.2 ug/mL (5.0-20.0) 05/31/18 09:39 Urine Opiates Screen Presumptive negative 05/29/18 23:50 Urine Methadone Screen Presumptive negative 05/29/18 23:50 Ur Barbiturates Screen Presumptive negative 05/29/18 23:50 Ur Phencyclidine Scrn Presumptive negative 05/29/18 23:50 Ur Amphetamines Screen Presumptive negative 05/29/18 23:50 U Benzodiazepines Scrn Presumptive negative 05/29/18 23:50 Urine Cocaine Screen Presumptive negative 05/29/18 23:50 U Marijuana (THC) Screen Presumptive negative 05/29/18 23:50 Drugs of Abuse Note Disclamer 05/29/18 23:50 Active Medications - Current Medications Current Medications: Generic Name Dose Route Start Last Admin Trade Name Freq PRN Reason Stop Dose Admin Acetaminophen 650 mg 05/31/18 09:02 05/31/18 09:26 Tylenol FEEDTUBE 650 mg Q6H PRN Administration Non Cardiac Pain or Temp>100.5 Albuterol/Ipratropium 1 ampul 06/01/18 00:00 06/03/18 07:48 Duoneb *Not For Prn Use* IH 1 ampul Q8HRT DOMINICK Administration Amlodipine Besylate 10 mg 05/29/18 10:00 06/03/18 09:21 Norvasc PO Not Given DAILY [facility] Lipase/Protease/Amylase 1 each 05/28/18 22:[address] 10,500 Unit FEEDTUBE PRN PRN For Clogged Feeding Tube Baclofen 10 mg 05/28/18 23:00 06/03/18 09:20 Lioresal PO 10 mg BID DOMINICK Administration Budesonide 0.5 mg 05/28/18 22:45 06/03/18 07:48 Pulmicort IH 0.5 mg Q12HRT DOMINICK Administration Buspirone HCl 5 mg 05/28/18 23:00 06/03/18 09:20 Buspar PO 5 mg BID DOMINICK Administration Fentanyl Citrate 2,000 mcg in 100 mls @ 3.969 mls/hr 05/28/18 21:00 06/03/18 13:15 Fentanyl Drip Premix IV 2 mcg/kg/hr TITR DOMINICK 7.938 mls/hr Titration Protocol 1 MCG/KG/HR Propofol 1,000 mg in 100 mls @ 2.526 mls/hr 05/30/18 02:07 06/02/18 07:39 Diprivan 10 Mg/Ml IV 0 mcg/kg/min TITR DOMINICK 0 mls/hr Titration Protocol 5 MCG/KG/MIN Levofloxacin/Dextrose 750 mg in 150 mls @ 100 mls/hr 05/31/18 11:00 06/03/18 09:19 Levaquin 750mg/150ml IV 100 mls/hr Q24HR DOMINICK Administration Protocol Insulin Human Lispro 0 unit 06/01/18 10:00 06/03/18 13:08 Humalog SUB-Q 1 unit Q6HR DOMINICK Administration Protocol Lansoprazole 30 mg 05/30/18 10:00 06/03/18 09:20 Prevacid Solutab FEEDTUBE 30 mg QDAY DOMINICK Administration Lisinopril 10 mg 05/29/18 10:00 06/02/18 10:57 Zestril PO 10 mg QDAY DOMINICK Administration Lorazepam 2 mg 05/31/18 08:39 06/03/18 07:22 Ativan IV 2 mg Q1H PRN Administration CIWA-Ar 8-15 Lorazepam 4 mg 05/31/18 08:39 Ativan IV Q1H PRN CIWA-Ar 16-25 Lorazepam 4 mg 05/31/18 08:39 Ativan IV Q15MIN PRN CIWA-Ar >25 Methylprednisolone Sodium Succinate 60 mg 05/31/18 14:00 06/03/18 13:08 Solu-Medrol IV 60 mg Q8HR DOMINICK Administration Metoprolol Tartrate 100 mg 05/31/18 10:00 06/03/18 13:08 Lopressor PO 100 mg BID DOMINICK Administration Quetiapine Fumarate 200 mg 06/01/18 22:00 06/03/18 09:20 Seroquel PO 200 mg BID DOMINICK Administration Simple Syrup 15 ml 05/28/18 22:45 Simple Syrup FEEDTUBE PRN PRN Hypoglycemia Simple Syrup 30 ml 05/28/18 22:45 Simple Syrup FEEDTUBE PRN PRN Hypoglycemia Sodium Bicarbonate 325 mg 05/28/18 22:45 Sodium Bicarbonate FEEDTUBE PRN PRN For Clogged Feeding Tube Sodium Chloride 10 ml 05/29/18 10:00 06/03/18 09:21 Sodium Chloride Flush Syringe 10 Ml IV 10 ml BID DOMINICK Administration Sodium Chloride 10 ml 05/28/18 22:45 05/31/18 13:32 Sodium Chloride Flush Syringe 10 Ml IV 10 ml PRN PRN Administration LINE FLUSH Nutrition/Malnutrition Assess - Dietary Evaluation Nutrition/Malnutrition Findings: Nutrition Notes Start: 05/29/18 09:32 Freq: Status: Active Protocol: Document 06/01/18 13:19 OL (Rec: 06/01/18 13:33 OL [email or web address]) Nutrition Notes Initial or Follow up Reassessment Current Diagnosis COPD,Hypertension,Respiratory Failure Other Pertinent Diagnosis COPD exacerbation, End-stage lung Dz Current Diet Vital High Protein at 45mL/hr Labs/Tests Na 152 Mg 2.4 Pertinent Medications Propofol at 5.052mL/hr ( provides 133 lipid kcal) Solumedrol Levophed gtt Height 5 ft Weight 86.5 kg [place] Body Weight (kg) 45.45 BMI 37.2 Weight Status Obese Subjective/Other Information Pt. tolerating Vital High Protein at goal rate of 45mL/ hr. Pt. discussed during interdisciplinary rounds. Flush per MD at this time. Burn Absent Trauma Absent #1 Nutrition Diagnosis Inadequate oral intake Diagnosis Progress(for reassessment Continues documentation) Is patient on ventilator? Yes Is Patient Ambulatory and/or Out of Bed No REE-([place]-confined to bed) 1632.528 Kcal/Kg value to use for calculation 14 Approximate Energy Requirements Using 1211 kcal/Kg Calculation Used for Recommendations Kcal/kg Additional Notes Pro needs 2g/kg IBW: 91g/day Fluid needs 1ml/kcal Nutrition Intervention Nutrition Support: Increase Vital High Protein to 50mL/hr. Flush for hypernatermia per MD at this time 50mL flush q4h when hypernatermia resolved Kcal 1,200 Protein (gm) 105 Fluid (mL) 1,003 Goal #1 TF tolerance Goal #2 TF to meet 80-100% energy and protein needs Anticipated Discharge Needs: Unable to identify at this time Follow-Up By: 06/05/18 Additional Comments f/u: stable TF
[2018-06-04] MEDS: FREE WATER PO SCH ×4 (03:07→21:15)
[2018-06-04] MEDS: SOLU-Medrol IV SCH ×3 (05:29→21:13)
[2018-06-04] MEDS: HumaLOG SUB-Q SCH ×4 (05:30→18:00)
[2018-06-04] MEDS: PULMICORT IH SCH ×2 (08:30→20:07)
[2018-06-04] MEDS: DUONEB *Not for PRN Use IH SCH ×2 (08:30→20:07)
[2018-06-04] MEDS: fentaNYL DRIP Premix 2,000 MCG/100 ML BAG IV SCH ×2 (08:39→19:19)
--- NOTE | 2018-06-04 09:45 | Progress Note ---
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 According to chart, pt has not been using her O2 and started hallucinating. She was intubated in the ED. She was also hypotensive in the ED and started on Vasopressor/Levophed * CTA chest IMPRESSION: 1. Study degraded by artifact created by retained hardware in the thoracic spine and by motion artifact. 2. No evidence of central pulmonary artery emboli. However, segmental pulmonary artery emboli could be missed or overcalled due to significant artifact. 3. Complete consolidation left lower lobe with air bronchograms and volume loss consistent with atelectasis. There appears to be opacification of a portion of the left lower lobe bronchus. 4. Tip of the endotracheal tube projected in satisfactory position. 5. Cardiomegaly. 6. IVC filter. 7. Prominent kyphosis of the thoracic spine with extensive instrumentation with retained hardware. * Abdominal 1 view XRAY IMPRESSION: Nasogastric tube is terminating in the stomach. Mild degree left pleural effusion * pCXR FINDINGS: Heart: Prominent cardiac silhouette. Mediastinum/Vessels: Prominent central vessels. Lungs/Pleural space: Left lung base airspace consolidation. Bony thorax: No acute osseous abnormality. Life support devices: The endotracheal tube tip is obscured by hardware in the thoracic spine, but likely projects approximately 4 cm superior to the carlos manuel. IMPRESSION: Prominent cardiac silhouette. 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 coli has not resistant, changed antibiotics to Levaquin and Gentamicin on Friday. ID may stop the iv Gent today. OFF Vasopressor since Friday. Sputum culture positive for Pseudomonas/Escherichia coli -DVT prophylaxis: sq Lovenox -Acute thrombocytopenia: Lovenox discontinued, awaiting HIT -Disposition: continue Critcal care, trying to wean off pressors and vent but still febrile full code CCT 31 minutes History Interval history: Patient seen and examined remained confused and on full mechanical support. Hospitalist Physical - Physical exam Narrative exam: General appearance: Present: no acute distress, other (pt is intubated.) still agitated - EENT Eyes: Present: PERRL ENT: clear oral mucosa, other (NGT noted) - Neck Neck: Present: supple - Respiratory Respiratory effort: normal Respiratory: bilateral: CTA - Cardiovascular Rhythm: regular (with tachycardia) Heart Sounds: Present: S1 & S2 - Extremities Extremities: No edema - Abdominal General gastrointestinal: soft, non-tender, non-distended, normal bowel sounds - Integumentary Integumentary: Present: clear, warm, dry - Neurologic Neurologic: other (patient is intubated and sedated) - Constitutional Vitals: Temp Pulse Resp BP Pulse Ox 99.2 F 107 H 22 107/56 95 06/04/18 08:00 06/04/18 08:45 06/04/18 08:45 06/04/18 08:31 06/04/18 08:31 General appearance: Present: no acute distress, other (pt is intubated.) Results - Labs CBC & Chem 7: 06/03/18 04:59 06/03/18 04:59 Labs: Laboratory Last Values WBC 8.3 K/mm3 (4.5-11.0) 06/03/18 04:59 RBC 4.39 M/mm3 (3.65-5.03) 06/03/18 04:59 Hgb 10.1 gm/dl (10.1-14.3) 06/03/18 04:59 Hct 33.3 % (30.3-42.9) 06/03/18 04:59 MCV 76 fl (79-97) L 06/03/18 04:59 MCH 23 pg (28-32) L 06/03/18 04:59 MCHC 30 % (30-34) 06/03/18 04:59 RDW 19.1 % (13.2-15.2) H 06/03/18 04:59 Plt Count 99 K/mm3 (140-440) L 06/03/18 04:59 Lymph % (Auto) 8.5 % (13.4-35.0) L 05/28/18 13:13 [place] % (Auto) 11.3 % (0.0-7.3) H 05/28/18 13:13 Eos % (Auto) 0.0 % (0.0-4.3) 05/28/18 13:13 Baso % (Auto) 0.4 % (0.0-1.8) 05/28/18 13:13 Lymph # 0.8 K/mm3 (1.2-5.4) L 05/28/18 13:13 [place] # 1.1 K/mm3 (0.0-0.8) H 05/28/18 13:13 Eos # 0.0 K/mm3 (0.0-0.4) 05/28/18 13:13 Baso # 0.0 K/mm3 (0.0-0.1) 05/28/18 13:13 Add Manual Diff Complete 05/31/18 08:50 Total Counted 100 05/31/18 08:50 Seg Neutrophils % Bpm Architect 05/31/18 08:50 Seg Neuts % (Manual) 98.0 % (40.0-70.0) H 05/31/18 08:50 Band Neutrophils % 0 % 05/31/18 08:50 Lymphocytes % (Manual) 2.0 % (13.4-35.0) L 05/31/18 08:50 Reactive Lymphs % (Man) 0 % 05/31/18 08:50 Monocytes % (Manual) 0 % (0.0-7.3) 05/31/18 08:50 Eosinophils % (Manual) 0 % (0.0-4.3) 05/31/18 08:50 Basophils % (Manual) 0 % (0.0-1.8) 05/31/18 08:50 Metamyelocytes % 0 % 05/31/18 08:50 Myelocytes % 0 % 05/31/18 08:50 Promyelocytes % 0 % 05/31/18 08:50 Blast Cells % 0 % 05/31/18 08:50 Nucleated RBC % 1.0 % (0.0-0.9) H 05/31/18 08:50 Seg Neutrophils # 7.7 K/mm3 (1.8-7.7) 05/28/18 13:13 Seg Neutrophils # Man 8.4 K/mm3 (1.8-7.7) H 05/31/18 08:50 Band Neutrophils # 0.0 K/mm3 05/31/18 08:50 Lymphocytes # (Manual) 0.2 K/mm3 (1.2-5.4) L 05/31/18 08:50 Abs React Lymphs (Man) 0.0 K/mm3 05/31/18 08:50 Monocytes # (Manual) 0.0 K/mm3 (0.0-0.8) 05/31/18 08:50 Eosinophils # (Manual) 0.0 K/mm3 (0.0-0.4) 05/31/18 08:50 Basophils # (Manual) 0.0 K/mm3 (0.0-0.1) 05/31/18 08:50 Metamyelocytes # 0.0 K/mm3 05/31/18 08:50 Myelocytes # 0.0 K/mm3 05/31/18 08:50 Promyelocytes # 0.0 K/mm3 05/31/18 08:50 Blast Cells # 0.0 K/mm3 05/31/18 08:50 WBC Morphology Not Reportable 05/31/18 08:50 Hypersegmented Neuts Not Reportable 05/31/18 08:50 Hyposegmented Neuts Not Reportable 05/31/18 08:50 Hypogranular Neuts Not Reportable 05/31/18 08:50 Smudge Cells Not Reportable 05/31/18 08:50 Toxic Granulation Not Reportable 05/31/18 08:50 Toxic Vacuolation Not Reportable 05/31/18 08:50 Dohle Bodies Not Reportable 05/31/18 08:50 Pelger-Huet Anomaly Not Reportable 05/31/18 08:50 Neha Rods Not Reportable 05/31/18 08:50 Platelet Estimate Consistent w auto 05/31/18 08:50 Clumped Platelets Not Reportable 05/31/18 08:50 Plt Clumps, EDTA Not Reportable 05/31/18 08:50 Large Platelets Not Reportable 05/31/18 08:50 Giant Platelets Not Reportable 05/31/18 08:50 Platelet Satelliting Not Reportable 05/31/18 08:50 Plt Morphology Comment Not Reportable 05/31/18 08:50 RBC Morphology Not Reportable 05/31/18 08:50 Dimorphic RBCs Not Reportable 05/31/18 08:50 Polychromasia Few 05/31/18 08:50 Hypochromasia Few 05/31/18 08:50 Poikilocytosis Not Reportable 05/31/18 08:50 Anisocytosis Not Reportable 05/31/18 08:50 Microcytosis Not Reportable 05/31/18 08:50 Macrocytosis Not Reportable 05/31/18 08:50 Spherocytes Not Reportable 05/31/18 08:50 Pappenheimer Bodies Not Reportable 05/31/18 08:50 Sickle Cells Not Reportable 05/31/18 08:50 Target Cells Not Reportable 05/31/18 08:50 Tear Drop Cells Not Reportable 05/31/18 08:50 Ovalocytes Not Reportable 05/31/18 08:50 Stomatocytes Rare 05/31/18 08:50 Helmet Cells Not Reportable 05/31/18 08:50 [place] Bodies Not Reportable 05/31/18 08:50 [place] Rings Not Reportable 05/31/18 08:50 Damien Cells Not Reportable 05/31/18 08:50 Bite Cells Not Reportable 05/31/18 08:50 Crenated Cell Not Reportable 05/31/18 08:50 Elliptocytes Not Reportable 05/31/18 08:50 Acanthocytes (Spur) Not Reportable 05/31/18 08:50 Rouleaux Not Reportable 05/31/18 08:50 Hemoglobin C Crystals Not Reportable 05/31/18 08:50 Schistocytes Not Reportable 05/31/18 08:50 Malaria parasites Not Reportable 05/31/18 08:50 Hernna Bodies Not Reportable 05/31/18 08:50 Hem Pathologist Commnt No 05/31/18 08:50 D-Dimer 1062.49 ng/mlDDU (0-234) H 05/28/18 13:13 POC ABG pH 7.443 (7.35-7.45) 06/04/18 04:37 POC ABG pCO2 51.3 (35-45) H 06/04/18 04:37 POC ABG pO2 79 (80-105) L 06/04/18 04:37 POC ABG HCO3 35.1 (22-26 mml/L) 06/04/18 04:37 POC ABG Total CO2 37 (23-27mmol/L) 06/04/18 04:37 POC ABG O2 Sat 96 06/04/18 04:37 POC ABG Base Excess 11 ((-2) - (+3)mmol/L) 06/04/18 04:37 FiO2 55 % 06/04/18 04:37 Sodium 143 mmol/L (137-145) 06/03/18 04:59 Potassium 4.1 mmol/L (3.6-5.0) 06/03/18 04:59 Chloride 104.5 mmol/L (98-107) 06/03/18 04:59 Carbon Dioxide 29 mmol/L (22-30) 06/03/18 04:59 Anion Gap 14 mmol/L 06/03/18 04:59 BUN 23 mg/dL (7-17) H 06/03/18 04:59 Creatinine 0.3 mg/dL (0.7-1.2) L 06/03/18 04:59 Estimated GFR > 60 ml/min 06/03/18 04:59 BUN/Creatinine Ratio 77 % 06/03/18 04:59 Glucose 167 mg/dL (65-100) H 06/03/18 04:59 POC Glucose 140 (70-105) H 06/04/18 05:15 Lactic Acid 0.90 mmol/L (0.7-2.0) 05/28/18 14:50 Calcium 8.7 mg/dL (8.4-10.2) 06/03/18 04:59 Magnesium 2.40 mg/dL (1.7-2.3) H 06/01/18 05:50 Total Bilirubin 0.30 mg/dL (0.1-1.2) 05/28/18 13:13 AST 23 units/L (5-40) 05/28/18 13:13 ALT 11 units/L (7-56) 05/28/18 13:13 Alkaline Phosphatase 96 units/L (35-129) 05/28/18 13:13 Troponin T < 0.010 ng/mL (0.00-0.029) 05/28/18 13:13 Total Protein 6.6 g/dL (6.3-8.2) 05/28/18 13:13 Albumin 3.5 g/dL (3.9-5) L 05/28/18 13:13 Albumin/Globulin Ratio 1.1 % 05/28/18 13:13 Triglycerides 214 mg/dL (2-149) H 06/01/18 05:50 Urine Color Yellow (Yellow) 05/28/18 17:57 Urine Turbidity Clear (Clear) 05/28/18 17:57 Urine pH 6.0 (5.0-7.0) 05/28/18 17:57 Ur Specific [place] > 1.030 (1.003-1.030) H 05/28/18 17:57 Urine Protein 100 mg/dl mg/dL (Negative) 05/28/18 17:57 Urine Glucose (UA) Neg mg/dL (Negative) 05/28/18 17:57 Urine Ketones 20 mg/dL (Negative) 05/28/18 17:57 Urine Blood Sm (Negative) 05/28/18 17:57 Urine Nitrite Neg (Negative) 05/28/18 17:57 Urine Bilirubin Neg (Negative) 05/28/18 17:57 Urine Urobilinogen 2.0 mg/dL (<2.0) 05/28/18 17:57 Ur Leukocyte Esterase Neg (Negative) 05/28/18 17:57 Urine WBC (Auto) 1.0 /HPF (0.0-6.0) 05/28/18 17:57 Urine RBC (Auto) 2.0 /HPF (0.0-6.0) 05/28/18 17:57 U Epithel Cells (Auto) < 1.0 /HPF (0-13.0) 05/28/18 17:57 Urine Mucus Few /HPF 05/28/18 17:57 Random Gentamicin 0.4 ug/mL (0.0-10.0) 06/01/18 05:50 Vancomycin Trough 7.2 ug/mL (5.0-20.0) 05/31/18 09:39 Urine Opiates Screen Presumptive negative 05/29/18 23:50 Urine Methadone Screen Presumptive negative 05/29/18 23:50 Ur Barbiturates Screen Presumptive negative 05/29/18 23:50 Ur Phencyclidine Scrn Presumptive negative 05/29/18 23:50 Ur Amphetamines Screen Presumptive negative 05/29/18 23:50 U Benzodiazepines Scrn Presumptive negative 05/29/18 23:50 Urine Cocaine Screen Presumptive negative 05/29/18 23:50 U Marijuana (THC) Screen Presumptive negative 05/29/18 23:50 Drugs of Abuse Note Disclamer 05/29/18 23:50 Active Medications - Current Medications Current Medications: Generic Name Dose Route Start Last Admin Trade Name Freq PRN Reason Stop Dose Admin Acetaminophen 650 mg 05/31/18 09:02 05/31/18 09:26 Tylenol FEEDTUBE 650 mg Q6H PRN Administration Non Cardiac Pain or Temp>100.5 Albuterol/Ipratropium 1 ampul 06/01/18 00:00 06/04/18 08:30 Duoneb *Not For Prn Use* IH 1 ampul Q8HRT DOMINICK Administration Amlodipine Besylate 10 mg 05/29/18 10:00 06/03/18 09:21 Norvasc PO Not Given DAILY [facility] Lipase/Protease/Amylase 1 each 05/28/18 22:[address] 10,500 Unit FEEDTUBE PRN PRN For Clogged Feeding Tube Baclofen 10 mg 05/28/18 23:00 06/03/18 21:01 Lioresal PO 10 mg BID DOMINICK Administration Budesonide 0.5 mg 05/28/18 22:45 06/04/18 08:30 Pulmicort IH 0.5 mg Q12HRT DOMINICK Administration Buspirone HCl 5 mg 05/28/18 23:00 06/03/18 21:00 Buspar PO 5 mg BID DOMINICK Administration Fentanyl Citrate 2,000 mcg in 100 mls @ 3.969 mls/hr 05/28/18 21:00 06/04/18 08:39 Fentanyl Drip Premix IV 3 mcg/kg/hr TITR DOMINICK 11.907 mls/hr Administration Protocol 1 MCG/KG/HR Propofol 1,000 mg in 100 mls @ 2.526 mls/hr 05/30/18 02:07 06/02/18 07:39 Diprivan 10 Mg/Ml IV 0 mcg/kg/min TITR DOMINICK 0 mls/hr Titration Protocol 5 MCG/KG/MIN Levofloxacin/Dextrose 750 mg in 150 mls @ 100 mls/hr 05/31/18 11:00 06/03/18 09:19 Levaquin 750mg/150ml IV 100 mls/hr Q24HR DOMINICK Administration Protocol Insulin Human Lispro 0 unit 06/01/18 10:00 06/04/18 05:30 Humalog SUB-Q Not Given Q6HR DOMINICK Protocol Lansoprazole 30 mg 05/30/18 10:00 06/03/18 09:20 Prevacid Solutab FEEDTUBE 30 mg QDAY DOMINICK Administration Lisinopril 10 mg 05/29/18 10:00 06/03/18 10:00 Zestril PO Not Given QDAY DOMINICK Lorazepam 2 mg 05/31/18 08:39 06/03/18 20:58 Ativan IV 2 mg Q1H PRN Administration CIWA-Ar 8-15 Lorazepam 4 mg 05/31/18 08:39 Ativan IV Q1H PRN CIWA-Ar 16-25 Lorazepam 4 mg 05/31/18 08:39 Ativan IV Q15MIN PRN CIWA-Ar >25 Methylprednisolone Sodium Succinate 60 mg 05/31/18 14:00 06/04/18 05:29 Solu-Medrol IV 60 mg Q8HR DOMIINCK Administration Metoprolol Tartrate 100 mg 05/31/18 10:00 06/03/18 21:01 Lopressor PO 100 mg BID DOMINICK Administration Quetiapine Fumarate 200 mg 06/01/18 22:00 06/03/18 21:01 Seroquel PO 200 mg BID DOMINICK Administration Simple Syrup 15 ml 05/28/18 22:45 Simple Syrup FEEDTUBE PRN PRN Hypoglycemia Simple Syrup 30 ml 05/28/18 22:45 Simple Syrup FEEDTUBE PRN PRN Hypoglycemia Sodium Bicarbonate 325 mg 05/28/18 22:45 Sodium Bicarbonate FEEDTUBE PRN PRN For Clogged Feeding Tube Sodium Chloride 10 ml 05/29/18 10:00 06/03/18 21:02 Sodium Chloride Flush Syringe 10 Ml IV 10 ml BID DOMINICK Administration Sodium Chloride 10 ml 05/28/18 22:45 05/31/18 13:32 Sodium Chloride Flush Syringe 10 Ml IV 10 ml PRN PRN Administration LINE FLUSH Nutrition/Malnutrition Assess - Dietary Evaluation Nutrition/Malnutrition Findings: Nutrition Notes Start: 05/29/18 09:32 Freq: Status: Active Protocol: Document 06/01/18 13:19 OL (Rec: 06/01/18 13:33 OL [id number]) Nutrition Notes Initial or Follow up Reassessment Current Diagnosis COPD,Hypertension,Respiratory Failure Other Pertinent Diagnosis COPD exacerbation, End-stage lung Dz Current Diet Vital High Protein at 45mL/hr Labs/Tests Na 152 Mg 2.4 Pertinent Medications Propofol at 5.052mL/hr ( provides 133 lipid kcal) Solumedrol Levophed gtt Height 5 ft Weight 86.5 kg Roy Body Weight (kg) 45.45 BMI 37.2 Weight Status Obese Subjective/Other Information Pt. tolerating Vital High Protein at goal rate of 45mL/ hr. Pt. discussed during interdisciplinary rounds. Flush per MD at this time. Burn Absent Trauma Absent #1 Nutrition Diagnosis Inadequate oral intake Diagnosis Progress(for reassessment Continues documentation) Is patient on ventilator? Yes Is Patient Ambulatory and/or Out of Bed No REE-([facility]-confined to bed) 1632.528 Kcal/Kg value to use for calculation 14 Approximate Energy Requirements Using 1211 kcal/Kg Calculation Used for Recommendations Kcal/kg Additional Notes Pro needs 2g/kg IBW: 91g/day Fluid needs 1ml/kcal Nutrition Intervention Nutrition Support: Increase Vital High Protein to 50mL/hr. Flush for hypernatermia per MD at this time 50mL flush q4h when hypernatermia resolved Kcal 1,200 Protein (gm) 105 Fluid (mL) 1,003 Goal #1 TF tolerance Goal #2 TF to meet 80-100% energy and protein needs Anticipated Discharge Needs: Unable to identify at this time Follow-Up By: 06/05/18 Additional Comments f/u: stable TF
--- NOTE | 2018-06-04 10:03 | Progress Note ---
Assessment and Plan Cultures: 05/28/2018 blood culture: no growth 05/28/2018 Resp culture: E. coli, Pseudomonas aeruginosa 05/31/2018 blood culture: no growth at 72 hours A/P: 58-year-old female with COPD with chronic respiratory failure on home oxygen admitted with shortness of breath and confusion: 1) Septic shock, likely secondary to left lower lobe pneumonia: requiring mechanical ventilation and ICU stay. Remains off pressors. Cultures growing resistant Pseudomonas, susceptible E.coli. On abx. 2) Acute on chronic respiratory failure with underlying COPD: On mechanical ventilation. 3) Acute encephalopathy: likely metabolic. Agitated at times, sedated. 4) Spinal hardware noted on imaging, no concern for infection at present. Recs: continue Levofloxacin Day 5 of 10 Raul Gupta MD [facility] C: [phone] O: [phone] F: [phone] Subjective Date of service: 06/04/18 Interval history: No fever. Remains sedated on the vent. Agitated at times, encephalopathic. Objective - Exam Narrative Exam: Physical Exam: Constitutional: sedated, intubated. Head, Ears, Nose: Normocephalic, atraumatic. External ears, nose normal Eyes: Conjunctivae/corneas clear. No icterus. No ptosis. Neck: Supple, no meningeal signs. Oral: intubated. Cardiovascular: S1, S2 normal. Respiratory: Good air entry, clear to auscultation bilaterally GI: Soft; bowel sounds +. No peritoneal signs Musculoskeletal: No pedal edema, no cyanosis. Skin: No rash or abscess Hem/Lymphatic: No palpable cervical or supraclavicular nodes. No lymphangitis Psych: restless Neurological: sedated, intubated, on vent. - Constitutional Vitals: Vital Signs Temp Pulse Resp BP Pulse Ox 99.2 F 107 H 22 107/56 95 06/04/18 08:00 06/04/18 08:45 06/04/18 08:45 06/04/18 08:31 06/04/18 08:31 Temperature -Last 24 Hours Temperature 99.2 F Temperature 98.5 F Temperature 99.1 F Temperature 98.9 F Temperature 99.1 F Temperature 98.7 F - Labs CBC & Chem 7: 06/03/18 04:59 06/03/18 04:59 Labs: Abnormal lab results 06/03/18 06/03/18 06/03/18 Range/Units 12:20 17:28 23:23 POC ABG pCO2 (35-45) POC ABG pO2 (80-105) POC Glucose 155 H 135 H 145 H (70-105) 06/04/18 06/04/18 Range/Units 04:37 05:15 POC ABG pCO2 51.3 H (35-45) POC ABG pO2 79 L (80-105) POC Glucose 140 H (70-105)
[2018-06-04] MEDS: ATIVAN IV PRN (10:14)
[2018-06-04] MEDS: BUSPAR PO SCH ×2 (10:51→21:12)
[2018-06-04] MEDS: PREVACID SOLUTAB FEEDTUBE SCH (10:51)
[2018-06-04] MEDS: LIORESAL PO SCH ×2 (10:51→21:12)
[2018-06-04] MEDS: LEVAQUIN 750MG/150ML 750 MG/150 ML BAG IV SCH (10:53)
[2018-06-04] MEDS: SODIUM CHLORIDE FLUSH SYRINGE 10 ML IV SCH ×2 (10:54→21:13)
--- NOTE | 2018-06-04 11:37 | Progress Note ---
Assessment and Plan Septic Shock suspected LLL pneumonia, SOFA score >2 Acute on chronic combined( hypoxic-hypercapnic) respiratory failure s/p ETT MVS Severe AE COPD AMS with Acute encephalopathy Macrocytosis GNR pneumonia, probably secondary to aspiration Acute encephalaopthy( toxic, metabolic) History of substance abuse - increased Peep to 10 cm H2O - schedule duonebs bid - Increased seroquel to 300 mg bid - added brovana & pulmicort - consider short course diuretics after reviewing CXR - get bilateral lower extremity dopplers re: ? DVT - continue to wean supplemental oxygen to keep O2 sats 88-90% - continue Lung protective strategies - Oxygen restrictive strategies acutely (target sat's 88-90% acutely) - Daily ABGs/CXR till more stable - continue empiric antibiotics for aspiration PNA ? add GNR coverage, defer to ID - Follow tracheal aspirate cultures and adjust antibiotic therapy based on VITO/ID - VAP bundle addressed - continue volume resuscitation while monitoring hemodynamics - Wean vasopressor support for MAP> 65 mmHg - Daily SAT's & SBT assessment - Sedation target for RASS 0 to -1 - Stress ulcer prophylaxis - VTE prophylaxis - Tube feedings as tolerated - continue systemic steroids with slow taper - resume chronic home medications per attending - With macrocytosis, and history of drug use, will continue empiric CIWA protocol - continue accuchecks with glycemic control for target glucose of 140-180 mg/dL - Continue bronchodilators with pulmonary hygiene per RT - Maintenance of sleep -wake cycle - Mobility as tolerated by hemodynamics - Schedule bronchodilators therapy - Influenza and pneumonia vaccination per protocol ..care plan discussed at length with RN/RT during team rounds PROGNOSIS GUARDED CONDITION: CRITICAL CODE STATUS: FULL CODE The high probability of a clinically significant, sudden or life-threatening deterioration of the [respiratory, neurology,] system(s) required my full and direct attention, intervention and personal management. The aggregate critical care time was [32] minutes without overlap. Time includes spent on; [x] Data Review and interpretation [x] Patient assessment and monitoring of vital signs [x] Documentation [x] Medication orders and management Subjective Date of service: 06/04/18 Principal diagnosis: Septic Shock (? LLL pneumonia); Ac on Ch hypoxic- hypercapnic Resp failure Interval history: Patient is seen today for: Septic Shock suspected LLL pneumonia, SOFA score > 2; Acute on chronic combined( hypoxic-hypercapnic) respiratory failure s/p ETT MVS; Severe AE COPD; AMS with Acute encephalopathy; Macrocytosis Seen and examined at bedside; 24hour events reviewed; nursing and respiratory care staff consulted; no adverse overnight events reported to me; remains on MVS; extreme agitation during sedation vacation; no emesis or overt aspiration; off vasopressors Objective Vital Signs - 12hr 06/03/18 06/03/18 06/03/18 23:41 23:42 23:51 Temperature Pulse Rate 87 86 86 Pulse Rate [ Anterior Bilateral Throughout] Pulse Rate [ From Monitor] Respiratory 14 14 15 Rate Respiratory Rate [Anterior Bilateral Throughout] Blood Pressure 115/60 114/59 114/60 O2 Sat by Pulse 96 96 96 Oximetry 06/04/18 06/04/18 06/04/18 00:00 00:11 00:15 Temperature 99.1 F Pulse Rate 84 87 86 Pulse Rate [ Anterior Bilateral Throughout] Pulse Rate [ 88 From Monitor] Respiratory 20 13 Rate Respiratory Rate [Anterior Bilateral Throughout] Blood Pressure 114/60 114/59 116/61 O2 Sat by Pulse 97 96 96 Oximetry 06/04/18 06/04/18 06/04/18 00:21 00:30 00:41 Temperature Pulse Rate 87 88 108 H Pulse Rate [ Anterior Bilateral Throughout] Pulse Rate [ From Monitor] Respiratory 15 14 15 Rate Respiratory Rate [Anterior Bilateral Throughout] Blood Pressure 116/61 114/61 114/61 O2 Sat by Pulse 96 95 97 Oximetry 06/04/18 06/04/18 06/04/18 00:51 01:00 01:11 Temperature Pulse Rate 92 H 92 H 93 H Pulse Rate [ Anterior Bilateral Throughout] Pulse Rate [ From Monitor] Respiratory 15 14 14 Rate Respiratory Rate [Anterior Bilateral Throughout] Blood Pressure 130/65 121/63 121/63 O2 Sat by Pulse 96 94 96 Oximetry 06/04/18 06/04/18 06/04/18 01:21 01:30 01:41 Temperature Pulse Rate 93 H 91 H 90 Pulse Rate [ Anterior Bilateral Throughout] Pulse Rate [ From Monitor] Respiratory 15 14 15 Rate Respiratory Rate [Anterior Bilateral Throughout] Blood Pressure 114/62 116/60 116/60 O2 Sat by Pulse 96 94 95 Oximetry 06/04/18 06/04/18 06/04/18 01:50 02:00 02:11 Temperature Pulse Rate 91 H 91 H 123 H Pulse Rate [ Anterior Bilateral Throughout] Pulse Rate [ From Monitor] Respiratory 14 14 20 Rate Respiratory Rate [Anterior Bilateral Throughout] Blood Pressure 116/60 118/60 118/60 O2 Sat by Pulse 96 94 95 Oximetry 06/04/18 06/04/18 06/04/18 02:21 02:31 02:41 Temperature Pulse Rate 109 H 124 H 106 H Pulse Rate [ Anterior Bilateral Throughout] Pulse Rate [ From Monitor] Respiratory 19 12 14 Rate Respiratory Rate [Anterior Bilateral Throughout] Blood Pressure 118/60 118/60 118/60 O2 Sat by Pulse 95 Oximetry 06/04/18 06/04/18 06/04/18 02:51 03:00 03:10 Temperature Pulse Rate 97 H 92 H 88 Pulse Rate [ Anterior Bilateral Throughout] Pulse Rate [ From Monitor] Respiratory 14 14 16 Rate Respiratory Rate [Anterior Bilateral Throughout] Blood Pressure 123/64 113/55 123/64 O2 Sat by Pulse 95 95 97 Oximetry 06/04/18 06/04/18 06/04/18 03:21 03:30 03:41 Temperature Pulse Rate 76 72 70 Pulse Rate [ Anterior Bilateral Throughout] Pulse Rate [ From Monitor] Respiratory 16 15 14 Rate Respiratory Rate [Anterior Bilateral Throughout] Blood Pressure 123/64 105/53 105/53 O2 Sat by Pulse 97 96 98 Oximetry 06/04/18 06/04/18 06/04/18 03:51 04:00 04:11 Temperature 98.5 F Pulse Rate 68 67 68 Pulse Rate [ Anterior Bilateral Throughout] Pulse Rate [ 68 From Monitor] Respiratory 17 16 15 Rate Respiratory Rate [Anterior Bilateral Throughout] Blood Pressure 113/55 106/51 106/51 O2 Sat by Pulse 98 96 98 Oximetry 06/04/18 06/04/18 06/04/18 04:21 04:30 04:34 Temperature Pulse Rate 67 67 67 Pulse Rate [ Anterior Bilateral Throughout] Pulse Rate [ From Monitor] Respiratory 14 14 Rate Respiratory Rate [Anterior Bilateral Throughout] Blood Pressure 104/49 110/52 110/52 O2 Sat by Pulse 98 96 96 Oximetry 06/04/18 06/04/18 06/04/18 04:41 04:51 05:00 Temperature Pulse Rate 68 70 68 Pulse Rate [ Anterior Bilateral Throughout] Pulse Rate [ From Monitor] Respiratory 14 15 14 Rate Respiratory Rate [Anterior Bilateral Throughout] Blood Pressure 110/52 110/52 108/51 O2 Sat by Pulse 98 97 96 Oximetry 06/04/18 06/04/18 06/04/18 05:11 05:21 05:30 Temperature Pulse Rate 68 67 66 Pulse Rate [ Anterior Bilateral Throughout] Pulse Rate [ From Monitor] Respiratory 13 14 14 Rate Respiratory Rate [Anterior Bilateral Throughout] Blood Pressure 108/51 97/49 103/53 O2 Sat by Pulse 99 97 95 Oximetry 06/04/18 06/04/18 06/04/18 05:41 05:51 06:00 Temperature Pulse Rate 67 70 69 Pulse Rate [ Anterior Bilateral Throughout] Pulse Rate [ From Monitor] Respiratory 14 14 13 Rate Respiratory Rate [Anterior Bilateral Throughout] Blood Pressure 103/53 96/46 102/49 O2 Sat by Pulse 97 98 97 Oximetry 06/04/18 06/04/18 06/04/18 06:11 06:21 06:30 Temperature Pulse Rate 69 70 70 Pulse Rate [ Anterior Bilateral Throughout] Pulse Rate [ From Monitor] Respiratory 14 16 13 Rate Respiratory Rate [Anterior Bilateral Throughout] Blood Pressure 102/49 115/58 114/56 O2 Sat by Pulse 98 99 96 Oximetry 06/04/18 06/04/18 06/04/18 06:41 06:51 07:00 Temperature Pulse Rate 69 70 70 Pulse Rate [ Anterior Bilateral Throughout] Pulse Rate [ From Monitor] Respiratory 13 14 13 Rate Respiratory Rate [Anterior Bilateral Throughout] Blood Pressure 114/56 113/58 110/56 O2 Sat by Pulse 97 97 96 Oximetry 06/04/18 06/04/18 06/04/18 07:10 07:20 07:30 Temperature Pulse Rate 70 71 72 Pulse Rate [ Anterior Bilateral Throughout] Pulse Rate [ From Monitor] Respiratory 12 14 14 Rate Respiratory Rate [Anterior Bilateral Throughout] Blood Pressure 110/56 102/51 105/53 O2 Sat by Pulse 97 97 95 Oximetry 06/04/18 06/04/18 06/04/18 07:40 07:50 08:00 Temperature 99.2 F Pulse Rate 71 73 74 Pulse Rate [ Anterior Bilateral Throughout] Pulse Rate [ 74 From Monitor] Respiratory 13 14 14 Rate Respiratory Rate [Anterior Bilateral Throughout] Blood Pressure 102/51 109/53 116/61 O2 Sat by Pulse 96 97 96 Oximetry 06/04/18 06/04/18 06/04/18 08:10 08:20 08:30 Temperature Pulse Rate 72 73 73 Pulse Rate [ Anterior Bilateral Throughout] Pulse Rate [ From Monitor] Respiratory 14 15 13 Rate Respiratory Rate [Anterior Bilateral Throughout] Blood Pressure 116/61 105/53 107/56 O2 Sat by Pulse 96 96 95 Oximetry 06/04/18 06/04/18 06/04/18 08:31 08:40 08:45 Temperature Pulse Rate 74 120 H Pulse Rate [ 117 H 107 H Anterior Bilateral Throughout] Pulse Rate [ From Monitor] Respiratory 13 Rate Respiratory 16 22 Rate [Anterior Bilateral Throughout] Blood Pressure 107/56 107/56 O2 Sat by Pulse 95 94 Oximetry 06/04/18 06/04/18 06/04/18 08:50 09:00 09:10 Temperature Pulse Rate 108 H 114 H 115 H Pulse Rate [ Anterior Bilateral Throughout] Pulse Rate [ From Monitor] Respiratory 19 17 27 H Rate Respiratory Rate [Anterior Bilateral Throughout] Blood Pressure 107/56 156/71 156/71 O2 Sat by Pulse 93 91 94 Oximetry 06/04/18 06/04/18 06/04/18 09:20 09:30 09:40 Temperature Pulse Rate 112 H 113 H 107 H Pulse Rate [ Anterior Bilateral Throughout] Pulse Rate [ From Monitor] Respiratory 26 H 24 16 Rate Respiratory Rate [Anterior Bilateral Throughout] Blood Pressure 156/71 154/78 154/78 O2 Sat by Pulse 93 92 93 Oximetry 06/04/18 06/04/18 06/04/18 09:50 10:00 10:10 Temperature Pulse Rate 111 H 112 H 101 H Pulse Rate [ Anterior Bilateral Throughout] Pulse Rate [ From Monitor] Respiratory 15 17 14 Rate Respiratory Rate [Anterior Bilateral Throughout] Blood Pressure 137/100 154/77 154/77 O2 Sat by Pulse 93 92 94 Oximetry 06/04/18 06/04/18 06/04/18 10:20 10:30 10:40 Temperature Pulse Rate 96 H 87 85 Pulse Rate [ Anterior Bilateral Throughout] Pulse Rate [ From Monitor] Respiratory 14 14 14 Rate Respiratory Rate [Anterior Bilateral Throughout] Blood Pressure 148/80 101/53 101/53 O2 Sat by Pulse 95 94 95 Oximetry 06/04/18 06/04/18 10:50 11:00 Temperature Pulse Rate 83 112 H Pulse Rate [ Anterior Bilateral Throughout] Pulse Rate [ From Monitor] Respiratory 14 18 Rate Respiratory Rate [Anterior Bilateral Throughout] Blood Pressure 101/53 148/73 O2 Sat by Pulse 95 93 Oximetry Constitutional: appears uncomfortable, other (elderly chronically ill looking CF; normocephalic and with mild patient-vent dyssynchrony) Eyes: non-icteric ENT: oropharynx moist, other (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) Neck: supple, no lymphadenopathy, no JVD, other (no thyromegaly) Effort: mildly labored Ascultation: Bilateral: diminished breath sounds, rales Percussion: Bilateral: not dull Cardiovascular: regular rate and rhythm, murmur noted (ANGELO) Gastrointestinal: normoactive bowel sounds, soft, non-tender, non-distended Integumentary: normal Extremities: no cyanosis, no edema, pink and warm, pulses normal Neurologic: non-focal exam (grossly), pupils equal and round, CN II-XII normal, motor strength normal and Psychiatric: other (unable to assess; sedated) CBC and BMP: 06/03/18 04:59 06/03/18 04:59 ABG, PT/INR, D-dimer: ABG POC ABG pH 7.443 (7.35-7.45) 06/04/18 04:37 POC ABG pCO2 51.3 (35-45) H 06/04/18 04:37 POC ABG pO2 79 (80-105) L 06/04/18 04:37 POC ABG HCO3 35.1 (22-26 mml/L) 06/04/18 04:37 POC ABG Total CO2 37 (23-27mmol/L) 06/04/18 04:37 POC ABG O2 Sat 96 06/04/18 04:37 PT/INR, D-dimer D-Dimer 1062.49 ng/mlDDU (0-234) H 05/28/18 13:13 Abnormal lab findings: Abnormal Labs 05/28/18 05/28/18 05/28/18 13:13 13:13 13:13 Hgb 9.7 L MCV 77 L MCH 23 L MCHC 29 L RDW 19.2 H Plt Count Lymph % (Auto) 8.[address] [place] % (Auto) 11.3 H Lymph # 0.[address] [place] # 1.1 H Seg Neutrophils % 79.8 H Seg Neuts % (Manual) Lymphocytes % (Manual) Nucleated RBC % Seg Neutrophils # Man Lymphocytes # (Manual) D-Dimer 1062.49 H POC ABG pH POC ABG pCO2 POC ABG pO2 Sodium Chloride Carbon Dioxide BUN 24 H Creatinine 0.6 L Glucose POC Glucose Calcium Magnesium Albumin 3.5 L Triglycerides Ur Specific [place] 05/28/18 05/28/18 05/28/18 13:22 14:50 16:05 Hgb MCV MCH MCHC RDW Plt Count Lymph % (Auto) [place] % (Auto) Lymph # [place] # Seg Neutrophils % Seg Neuts % (Manual) Lymphocytes % (Manual) Nucleated RBC % Seg Neutrophils # Man Lymphocytes # (Manual) D-Dimer POC ABG pH 7.249 L 7.126 L POC ABG pCO2 68.9 H POC ABG pO2 77 L Sodium Chloride 109.1 H Carbon Dioxide BUN 22 H Creatinine 0.5 L Glucose POC Glucose Calcium 7.5 L Magnesium Albumin Triglycerides Ur Specific [place] 05/28/18 05/28/18 05/28/18 17:57 18:48 22:47 Hgb MCV MCH MCHC RDW Plt Count Lymph % (Auto) [place] % (Auto) Lymph # [place] # Seg Neutrophils % Seg Neuts % (Manual) Lymphocytes % (Manual) Nucleated RBC % Seg Neutrophils # Man Lymphocytes # (Manual) D-Dimer POC ABG pH 7.195 L 7.312 L POC ABG pCO2 57.5 H POC ABG pO2 57 L 73 L Sodium Chloride Carbon Dioxide BUN Creatinine Glucose POC Glucose Calcium Magnesium Albumin Triglycerides Ur Specific [place] > 1.030 H 05/30/18 05/30/18 05/31/18 06:10 10:42 04:23 Hgb MCV MCH MCHC RDW Plt Count Lymph % (Auto) [place] % (Auto) Lymph # [place] # Seg Neutrophils % Seg Neuts % (Manual) Lymphocytes % (Manual) Nucleated RBC % Seg Neutrophils # Man Lymphocytes # (Manual) D-Dimer POC ABG pH 7.214 L 7.253 L POC ABG pCO2 64.5 H 56.4 H POC ABG pO2 78 L 74 L Sodium Chloride Carbon Dioxide BUN Creatinine Glucose POC Glucose Calcium Magnesium Albumin Triglycerides Ur Specific [place] 05/31/18 05/31/18 05/31/18 06:30 08:50 08:50 Hgb 9.3 L MCV 78 L MCH 23 L MCHC 29 L RDW 19.8 H Plt Count 131 L Lymph % (Auto) [place] % (Auto) Lymph # [place] # Seg Neutrophils % Seg Neuts % (Manual) 98.0 H Lymphocytes % (Manual) 2.0 L Nucleated RBC % 1.0 H Seg Neutrophils # Man 8.4 H Lymphocytes # (Manual) 0.2 L D-Dimer POC ABG pH POC ABG pCO2 POC ABG pO2 Sodium 153 H D Chloride 117.4 H Carbon Dioxide BUN 18 H Creatinine 0.4 L Glucose 159 H POC Glucose 146 H Calcium 8.3 L Magnesium Albumin Triglycerides Ur Specific [place] 06/01/18 06/01/18 06/01/18 00:11 03:32 05:50 Hgb 9.8 L MCV 77 L MCH 23 L MCHC 29 L RDW 20.1 H Plt Count 122 L Lymph % (Auto) [place] % (Auto) Lymph # [place] # Seg Neutrophils % Seg Neuts % (Manual) Lymphocytes % (Manual) Nucleated RBC % Seg Neutrophils # Man Lymphocytes # (Manual) D-Dimer POC ABG pH 7.465 H POC ABG pCO2 POC ABG pO2 Sodium Chloride Carbon Dioxide BUN Creatinine Glucose POC Glucose 149 H Calcium Magnesium Albumin Triglycerides Ur Specific [place] 06/01/18 06/01/18 06/01/18 05:50 05:50 05:51 Hgb MCV MCH MCHC RDW Plt Count Lymph % (Auto) [place] % (Auto) Lymph # [place] # Seg Neutrophils % Seg Neuts % (Manual) Lymphocytes % (Manual) Nucleated RBC % Seg Neutrophils # Man Lymphocytes # (Manual) D-Dimer POC ABG pH POC ABG pCO2 POC ABG pO2 Sodium 152 H Chloride 113.7 H Carbon Dioxide BUN 18 H Creatinine 0.3 L Glucose 146 H POC Glucose 146 H Calcium Magnesium 2.40 H Albumin Triglycerides 214 H Ur Specific [place] 06/01/18 06/01/18 06/01/18 10:40 11:52 12:06 Hgb MCV MCH MCHC RDW Plt Count Lymph % (Auto) [place] % (Auto) Lymph # [place] # Seg Neutrophils % Seg Neuts % (Manual) Lymphocytes % (Manual) Nucleated RBC % Seg Neutrophils # Man Lymphocytes # (Manual) D-Dimer POC ABG pH POC ABG pCO2 48.4 H POC ABG pO2 Sodium Chloride Carbon Dioxide BUN Creatinine Glucose POC Glucose 147 H 138 H Calcium Magnesium Albumin Triglycerides Ur Specific [place] 06/01/18 06/02/18 06/02/18 18:08 00:39 04:11 Hgb MCV MCH MCHC RDW Plt Count Lymph % (Auto) [place] % (Auto) Lymph # [place] # Seg Neutrophils % Seg Neuts % (Manual) Lymphocytes % (Manual) Nucleated RBC % Seg Neutrophils # Man Lymphocytes # (Manual) D-Dimer POC ABG pH POC ABG pCO2 50.3 H POC ABG pO2 72 L Sodium Chloride Carbon Dioxide BUN Creatinine Glucose POC Glucose 156 H 156 H Calcium Magnesium Albumin Triglycerides Ur Specific [place] 06/02/18 06/02/18 06/02/18 05:16 07:47 07:47 Hgb 10.0 L MCV 77 L MCH 23 L MCHC 29 L RDW 18.8 H Plt Count 103 L Lymph % (Auto) [place] % (Auto) Lymph # [place] # Seg Neutrophils % Seg Neuts % (Manual) Lymphocytes % (Manual) Nucleated RBC % Seg Neutrophils # Man Lymphocytes # (Manual) D-Dimer POC ABG pH POC ABG pCO2 POC ABG pO2 Sodium 148 H Chloride 109.4 H Carbon Dioxide 32 H BUN 21 H Creatinine 0.3 L Glucose 137 H POC Glucose 150 H Calcium Magnesium Albumin Triglycerides Ur Specific [place] 06/02/18 06/02/18 06/02/18 11:46 17:51 19:58 Hgb MCV MCH MCHC RDW Plt Count Lymph % (Auto) [place] % (Auto) Lymph # [place] # Seg Neutrophils % Seg Neuts % (Manual) Lymphocytes % (Manual) Nucleated RBC % Seg Neutrophils # Man Lymphocytes # (Manual) D-Dimer POC ABG pH POC ABG pCO2 POC ABG pO2 Sodium Chloride Carbon Dioxide BUN Creatinine Glucose POC Glucose 150 H 135 H 131 H Calcium Magnesium Albumin Triglycerides Ur Specific [place] 06/03/18 06/03/18 06/03/18 04:28 04:59 04:59 Hgb MCV 76 L MCH 23 L MCHC RDW 19.1 H Plt Count 99 L Lymph % (Auto) [place] % (Auto) Lymph # [place] # Seg Neutrophils % Seg Neuts % (Manual) Lymphocytes % (Manual) Nucleated RBC % Seg Neutrophils # Man Lymphocytes # (Manual) D-Dimer POC ABG pH POC ABG pCO2 50.4 H POC ABG pO2 65 L Sodium Chloride Carbon Dioxide BUN 23 H Creatinine 0.3 L Glucose 167 H POC Glucose Calcium Magnesium Albumin Triglycerides Ur Specific [place] 06/03/18 06/03/18 06/03/18 05:17 12:20 17:28 Hgb MCV MCH MCHC RDW Plt Count Lymph % (Auto) [place] % (Auto) Lymph # [place] # Seg Neutrophils % Seg Neuts % (Manual) Lymphocytes % (Manual) Nucleated RBC % Seg Neutrophils # Man Lymphocytes # (Manual) D-Dimer POC ABG pH POC ABG pCO2 POC ABG pO2 Sodium Chloride Carbon Dioxide BUN Creatinine Glucose POC Glucose 153 H 155 H 135 H Calcium Magnesium Albumin Triglycerides Ur Specific [place] 06/03/18 06/04/18 06/04/18 23:23 04:37 05:15 Hgb MCV MCH MCHC RDW Plt Count Lymph % (Auto) [place] % (Auto) Lymph # [place] # Seg Neutrophils % Seg Neuts % (Manual) Lymphocytes % (Manual) Nucleated RBC % Seg Neutrophils # Man Lymphocytes # (Manual) D-Dimer POC ABG pH POC ABG pCO2 51.3 H POC ABG pO2 79 L Sodium Chloride Carbon Dioxide BUN Creatinine Glucose POC Glucose 145 H 140 H Calcium Magnesium Albumin Triglycerides Ur Specific [place] Chest x-ray: image reviewed (mild interstitial edema; T-spine brace/hardware visible) Allied health notes reviewed: nursing
[2018-06-04] MEDS: LOPRESSOR PO SCH ×2 (13:01→21:15)
[2018-06-04] MEDS: BROVANA NEBU IH SCH (20:07)
[2018-06-05] MEDS: HumaLOG SUB-Q SCH ×4 (00:40→19:45)
[2018-06-05] MEDS: FREE WATER PO SCH ×5 (02:00→19:46)
[2018-06-05] MEDS: fentaNYL DRIP Premix 2,000 MCG/100 ML BAG IV SCH (03:59)
[2018-06-05] MEDS: SOLU-Medrol IV SCH ×3 (06:33→22:00)
[2018-06-05] MEDS: PULMICORT IH SCH ×2 (07:58→19:32)
[2018-06-05] MEDS: DUONEB *Not for PRN Use IH SCH ×2 (07:58→19:32)
[2018-06-05] MEDS: BROVANA NEBU IH SCH ×2 (07:58→19:32)
[2018-06-05] MEDS: BUSPAR PO SCH (09:20)
[2018-06-05] MEDS: LIORESAL PO SCH (09:20)
[2018-06-05] MEDS: PREVACID SOLUTAB FEEDTUBE SCH (09:21)
[2018-06-05] MEDS: ZESTRIL PO SCH (09:21)
[2018-06-05] MEDS: NORVASC PO SCH (09:21)
[2018-06-05] MEDS: LOPRESSOR PO SCH (09:21)
--- NOTE | 2018-06-05 09:22 | Progress Note ---
Assessment and Plan -Septic Shock suspected LLL pneumonia, SOFA score >2 -Acute on chronic combined( hypoxic-hypercapnic) respiratory failure s/p ETT on MVS -Severe AE COPD -AMS with Acute encephalopathy -Macrocytosis -GNR pneumonia, probably secondary to aspiration -Acute encephalaopthy( toxic, metabolic) -History of substance abuse -Thrombocytopenia( multifactorial) -Hypernatremia -Hyperchloremia -Continue full MVS, PSV today, if parameters are acceptable will plan to liberate from MVS to NIPPV -Wean supplemental oxygen to keep O2 sats 88-90% -Lung protective strategies -Oxygen restrictive strategies -ABGs/CXR prn -Antibiotics per ID to complete course -VAP bundle addressed -Stress ulcer prophylaxis -VTE prophylaxis, continue to monitor platelet counts -Tube feedings, with free water flushes. - Continue steroid taper -Chronic home medications -Continue CIWA protocol -Aspiration precautions -Accuchecks with glycemic control. Target glucose of 140-180 mg/dL -Continue bronchodilators with pulmonary hygiene per RT -Maintenance of sleep -wake cycle -Mobility as tolerated by hemodynamics -Influenza and pneumonia vaccination per protocol Discussed in ICU-IDT rounds with care team Weaning as tolerated, if he PROGNOSIS GUARDED CONDITION: CRITICAL CODE STATUS: FULL CODE The high probability of a clinically significant, sudden or life-threatening deterioration of the [respiratory, neurology,hematology] system(s) required my full and direct attention, intervention and personal management. The aggregate critical care time was [35] minutes without overlap. Time includes spent on; [x] Data Review and interpretation [x] Patient assessment and monitoring of vital signs [x] Documentation [x] Medication orders and management Subjective Date of service: 06/05/18 Principal diagnosis: Septic Shock (? LLL pneumonia); Ac on hypoxic- hypercapnic Resp failure Interval history: Patient is seen today for: acute hypoxemic-hypercapnic respiratory failure, AE-COPD, acute encephaloapthy, h/o polysubstance abuse, obese Seen and examined at bedside; 24hour events reviewed; nursing and respiratory care staff consulted; no adverse overnight events reported to me; No fevers, no vomiting Remains on full mechanical ventilatory support, on going agitation RUExt PICC line, Vent AC 14/450/6/60% Discussed in ICU-IDT rounds Objective Vital Signs - 12hr 06/04/18 06/04/18 06/04/18 21:30 21:40 21:50 Temperature Pulse Rate 111 H 106 H 107 H Pulse Rate [ Anterior Bilateral Throughout] Pulse Rate [ From Monitor] Respiratory 14 14 13 Rate Respiratory Rate [Anterior Bilateral Throughout] Blood Pressure 117/63 117/63 119/66 O2 Sat by Pulse 95 94 94 Oximetry 06/04/18 06/04/18 06/04/18 22:00 22:05 22:10 Temperature Pulse Rate 113 H 110 H Pulse Rate [ Anterior Bilateral Throughout] Pulse Rate [ 86 From Monitor] Respiratory 14 14 15 Rate Respiratory Rate [Anterior Bilateral Throughout] Blood Pressure 99/61 119/66 O2 Sat by Pulse 95 96 94 Oximetry 06/04/18 06/04/18 06/04/18 22:20 22:30 22:40 Temperature Pulse Rate 110 H 103 H 102 H Pulse Rate [ Anterior Bilateral Throughout] Pulse Rate [ From Monitor] Respiratory 14 14 14 Rate Respiratory Rate [Anterior Bilateral Throughout] Blood Pressure 110/59 105/64 110/59 O2 Sat by Pulse 94 94 94 Oximetry 06/04/18 06/04/18 06/04/18 22:50 23:00 23:10 Temperature Pulse Rate 100 H 94 H 92 H Pulse Rate [ Anterior Bilateral Throughout] Pulse Rate [ From Monitor] Respiratory 14 14 15 Rate Respiratory Rate [Anterior Bilateral Throughout] Blood Pressure 107/58 108/59 107/58 O2 Sat by Pulse 94 93 94 Oximetry 06/04/18 06/04/18 06/04/18 23:20 23:30 23:40 Temperature Pulse Rate 92 H 94 H 91 H Pulse Rate [ Anterior Bilateral Throughout] Pulse Rate [ From Monitor] Respiratory 13 14 13 Rate Respiratory Rate [Anterior Bilateral Throughout] Blood Pressure 109/61 110/59 109/61 O2 Sat by Pulse 94 94 94 Oximetry 06/04/18 06/04/18 06/05/18 23:41 23:50 00:00 Temperature Pulse Rate 88 87 91 H Pulse Rate [ Anterior Bilateral Throughout] Pulse Rate [ From Monitor] Respiratory 14 13 Rate Respiratory Rate [Anterior Bilateral Throughout] Blood Pressure 110/59 107/58 112/60 O2 Sat by Pulse 94 94 94 Oximetry 06/05/18 06/05/18 06/05/18 00:10 00:20 00:30 Temperature Pulse Rate 88 101 H 86 Pulse Rate [ Anterior Bilateral Throughout] Pulse Rate [ From Monitor] Respiratory 13 15 14 Rate Respiratory Rate [Anterior Bilateral Throughout] Blood Pressure 112/60 106/56 106/57 O2 Sat by Pulse 95 94 93 Oximetry 06/05/18 06/05/18 06/05/18 00:40 00:50 01:00 Temperature Pulse Rate 87 86 85 Pulse Rate [ Anterior Bilateral Throughout] Pulse Rate [ From Monitor] Respiratory 14 14 13 Rate Respiratory Rate [Anterior Bilateral Throughout] Blood Pressure 106/57 110/56 111/58 O2 Sat by Pulse 95 94 94 Oximetry 06/05/18 06/05/18 06/05/18 01:10 01:20 01:30 Temperature Pulse Rate 84 89 110 H Pulse Rate [ Anterior Bilateral Throughout] Pulse Rate [ From Monitor] Respiratory 14 13 13 Rate Respiratory Rate [Anterior Bilateral Throughout] Blood Pressure 111/58 113/57 112/53 O2 Sat by Pulse 95 95 95 Oximetry 06/05/18 06/05/18 06/05/18 01:38 01:40 01:50 Temperature 99.6 F Pulse Rate 108 H 91 H Pulse Rate [ Anterior Bilateral Throughout] Pulse Rate [ From Monitor] Respiratory 13 15 Rate Respiratory Rate [Anterior Bilateral Throughout] Blood Pressure 112/53 128/74 O2 Sat by Pulse 94 94 Oximetry 06/05/18 06/05/18 06/05/18 02:00 02:10 02:20 Temperature Pulse Rate 104 H 91 H 94 H Pulse Rate [ Anterior Bilateral Throughout] Pulse Rate [ 104 H From Monitor] Respiratory 13 13 14 Rate Respiratory Rate [Anterior Bilateral Throughout] Blood Pressure 124/74 124/74 108/59 O2 Sat by Pulse 94 94 95 Oximetry 06/05/18 06/05/18 06/05/18 02:30 02:40 02:50 Temperature Pulse Rate 92 H 92 H 117 H Pulse Rate [ Anterior Bilateral Throughout] Pulse Rate [ From Monitor] Respiratory 15 14 19 Rate Respiratory Rate [Anterior Bilateral Throughout] Blood Pressure 124/71 124/71 133/69 O2 Sat by Pulse 93 94 94 Oximetry 06/05/18 06/05/18 06/05/18 03:00 03:10 03:18 Temperature Pulse Rate 107 H 103 H 104 H Pulse Rate [ Anterior Bilateral Throughout] Pulse Rate [ From Monitor] Respiratory 14 14 Rate Respiratory Rate [Anterior Bilateral Throughout] Blood Pressure 119/69 119/69 125/65 O2 Sat by Pulse 94 94 94 Oximetry 06/05/18 06/05/18 06/05/18 03:20 03:30 03:40 Temperature Pulse Rate 116 H 115 H 93 H Pulse Rate [ Anterior Bilateral Throughout] Pulse Rate [ From Monitor] Respiratory 14 13 14 Rate Respiratory Rate [Anterior Bilateral Throughout] Blood Pressure 125/65 125/68 125/68 O2 Sat by Pulse 94 93 95 Oximetry 06/05/18 06/05/18 06/05/18 03:50 04:00 04:10 Temperature 98.6 F Pulse Rate 92 H 126 H 106 H Pulse Rate [ Anterior Bilateral Throughout] Pulse Rate [ 126 H From Monitor] Respiratory 14 13 15 Rate Respiratory Rate [Anterior Bilateral Throughout] Blood Pressure 116/68 116/68 146/104 O2 Sat by Pulse 94 95 94 Oximetry 06/05/18 06/05/18 06/05/18 04:20 04:30 04:40 Temperature Pulse Rate 117 H 105 H Pulse Rate [ Anterior Bilateral Throughout] Pulse Rate [ From Monitor] Respiratory 13 15 Rate Respiratory Rate [Anterior Bilateral Throughout] Blood Pressure 158/88 137/69 137/69 O2 Sat by Pulse 92 93 94 Oximetry 06/05/18 06/05/18 06/05/18 04:50 05:00 05:10 Temperature Pulse Rate 118 H 101 H 96 H Pulse Rate [ Anterior Bilateral Throughout] Pulse Rate [ From Monitor] Respiratory 15 15 14 Rate Respiratory Rate [Anterior Bilateral Throughout] Blood Pressure 147/76 111/59 111/59 O2 Sat by Pulse 93 94 95 Oximetry 06/05/18 06/05/18 06/05/18 05:20 05:30 05:40 Temperature Pulse Rate 92 H 109 H 97 H Pulse Rate [ Anterior Bilateral Throughout] Pulse Rate [ From Monitor] Respiratory 14 12 21 Rate Respiratory Rate [Anterior Bilateral Throughout] Blood Pressure 147/76 146/71 146/71 O2 Sat by Pulse 95 94 95 Oximetry 06/05/18 06/05/18 06/05/18 05:50 06:00 06:10 Temperature Pulse Rate 96 H 106 H 122 H Pulse Rate [ Anterior Bilateral Throughout] Pulse Rate [ 106 H From Monitor] Respiratory 21 14 12 Rate Respiratory Rate [Anterior Bilateral Throughout] Blood Pressure 118/61 127/65 127/65 O2 Sat by Pulse 95 94 95 Oximetry 06/05/18 06/05/18 06/05/18 06:20 06:30 06:40 Temperature Pulse Rate 98 H 110 H 120 H Pulse Rate [ Anterior Bilateral Throughout] Pulse Rate [ From Monitor] Respiratory 20 14 15 Rate Respiratory Rate [Anterior Bilateral Throughout] Blood Pressure 146/71 140/76 140/76 O2 Sat by Pulse 95 93 93 Oximetry 06/05/18 06/05/18 06/05/18 06:50 07:00 07:10 Temperature Pulse Rate 106 H 107 H 119 H Pulse Rate [ Anterior Bilateral Throughout] Pulse Rate [ From Monitor] Respiratory 14 21 19 Rate Respiratory Rate [Anterior Bilateral Throughout] Blood Pressure 127/73 136/70 136/70 O2 Sat by Pulse 94 93 94 Oximetry 06/05/18 06/05/18 06/05/18 07:20 07:30 07:40 Temperature Pulse Rate 97 H 94 H 105 H Pulse Rate [ Anterior Bilateral Throughout] Pulse Rate [ From Monitor] Respiratory 17 20 12 Rate Respiratory Rate [Anterior Bilateral Throughout] Blood Pressure 140/76 114/60 114/60 O2 Sat by Pulse 95 94 94 Oximetry 06/05/18 06/05/18 06/05/18 07:43 07:50 07:55 Temperature 98.8 F Pulse Rate 106 H Pulse Rate [ 111 H Anterior Bilateral Throughout] Pulse Rate [ From Monitor] Respiratory 14 Rate Respiratory 14 Rate [Anterior Bilateral Throughout] Blood Pressure 114/60 O2 Sat by Pulse 95 Oximetry 06/05/18 06/05/18 06/05/18 08:00 08:04 08:07 Temperature Pulse Rate 109 H 104 H Pulse Rate [ 110 H Anterior Bilateral Throughout] Pulse Rate [ From Monitor] Respiratory 14 Rate Respiratory 14 Rate [Anterior Bilateral Throughout] Blood Pressure 125/74 125/74 O2 Sat by Pulse 93 92 Oximetry 06/05/18 06/05/18 06/05/18 08:10 08:20 08:42 Temperature Pulse Rate 112 H 125 H 134 H Pulse Rate [ Anterior Bilateral Throughout] Pulse Rate [ From Monitor] Respiratory 16 20 23 Rate Respiratory Rate [Anterior Bilateral Throughout] Blood Pressure 125/74 120/99 O2 Sat by Pulse 91 92 92 Oximetry Constitutional: appears uncomfortable, other Eyes: non-icteric ENT: oropharynx moist, other (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) Neck: supple, no lymphadenopathy, no JVD, other (no thyromegaly) Effort: mildly labored Ascultation: Bilateral: diminished breath sounds, rales Percussion: Bilateral: not dull Cardiovascular: regular rate and rhythm, murmur noted (ANGELO) Gastrointestinal: normoactive bowel sounds, soft, non-tender, non-distended Integumentary: normal Extremities: no cyanosis, no edema, pink and warm, pulses normal Neurologic: non-focal exam (grossly) Psychiatric: other (unable to assess) CBC and BMP: 06/12/18 00:19 06/11/18 06:08 ABG, PT/INR, D-dimer: ABG POC ABG pH 7.384 (7.35-7.45) 06/05/18 04:10 POC ABG pCO2 56.3 (35-45) H 06/05/18 04:10 POC ABG pO2 61 (80-105) L 06/05/18 04:10 POC ABG HCO3 33.6 (22-26 mml/L) 06/05/18 04:10 POC ABG Total CO2 35 (23-27mmol/L) 06/05/18 04:10 POC ABG O2 Sat 90 06/05/18 04:10 PT/INR, D-dimer D-Dimer 1062.49 ng/mlDDU (0-234) H 05/28/18 13:13 Abnormal lab findings: Abnormal Labs 05/28/18 05/28/18 05/28/18 13:13 13:13 13:13 Hgb 9.7 L MCV 77 L MCH 23 L MCHC 29 L RDW 19.2 H Plt Count Lymph % (Auto) 8.5 L [place] % (Auto) 11.3 H Lymph # 0.8 L [place] # 1.1 H Seg Neutrophils % 79.8 H Seg Neuts % (Manual) Lymphocytes % (Manual) Nucleated RBC % Seg Neutrophils # Man Lymphocytes # (Manual) D-Dimer 1062.49 H POC ABG pH POC ABG pCO2 POC ABG pO2 Sodium Chloride Carbon Dioxide BUN 24 H Creatinine 0.6 L Glucose POC Glucose Calcium Magnesium Albumin 3.5 L Triglycerides Ur Specific [place] 05/28/18 05/28/18 05/28/18 13:22 14:50 16:05 Hgb MCV MCH MCHC RDW Plt Count Lymph % (Auto) [place] % (Auto) Lymph # [place] # Seg Neutrophils % Seg Neuts % (Manual) Lymphocytes % (Manual) Nucleated RBC % Seg Neutrophils # Man Lymphocytes # (Manual) D-Dimer POC ABG pH 7.249 L 7.126 L POC ABG pCO2 68.9 H POC ABG pO2 77 L Sodium Chloride 109.1 H Carbon Dioxide BUN 22 H Creatinine 0.5 L Glucose POC Glucose Calcium 7.5 L Magnesium Albumin Triglycerides Ur Specific [place] 05/28/18 05/28/18 05/28/18 17:57 18:48 22:47 Hgb MCV MCH MCHC RDW Plt Count Lymph % (Auto) [place] % (Auto) Lymph # [place] # Seg Neutrophils % Seg Neuts % (Manual) Lymphocytes % (Manual) Nucleated RBC % Seg Neutrophils # Man Lymphocytes # (Manual) D-Dimer POC ABG pH 7.195 L 7.312 L POC ABG pCO2 57.5 H POC ABG pO2 57 L 73 L Sodium Chloride Carbon Dioxide BUN Creatinine Glucose POC Glucose Calcium Magnesium Albumin Triglycerides Ur Specific [place] > 1.030 H 05/30/18 05/30/18 05/31/18 06:10 10:42 04:23 Hgb MCV MCH MCHC RDW Plt Count Lymph % (Auto) [place] % (Auto) Lymph # [place] # Seg Neutrophils % Seg Neuts % (Manual) Lymphocytes % (Manual) Nucleated RBC % Seg Neutrophils # Man Lymphocytes # (Manual) D-Dimer POC ABG pH 7.214 L 7.253 L POC ABG pCO2 64.5 H 56.4 H POC ABG pO2 78 L 74 L Sodium Chloride Carbon Dioxide BUN Creatinine Glucose POC Glucose Calcium Magnesium Albumin Triglycerides Ur Specific [place] 05/31/18 05/31/18 05/31/18 06:30 08:50 08:50 Hgb 9.3 L MCV 78 L MCH 23 L MCHC 29 L RDW 19.8 H Plt Count 131 L Lymph % (Auto) [place] % (Auto) Lymph # [place] # Seg Neutrophils % Seg Neuts % (Manual) 98.0 H Lymphocytes % (Manual) 2.0 L Nucleated RBC % 1.0 H Seg Neutrophils # Man 8.4 H Lymphocytes # (Manual) 0.2 L D-Dimer POC ABG pH POC ABG pCO2 POC ABG pO2 Sodium 153 H D Chloride 117.4 H Carbon Dioxide BUN 18 H Creatinine 0.4 L Glucose 159 H POC Glucose 146 H Calcium 8.3 L Magnesium Albumin Triglycerides Ur Specific [place] 06/01/18 06/01/18 06/01/18 00:11 03:32 05:50 Hgb 9.8 L MCV 77 L MCH 23 L MCHC 29 L RDW 20.1 H Plt Count 122 L Lymph % (Auto) [place] % (Auto) Lymph # [place] # Seg Neutrophils % Seg Neuts % (Manual) Lymphocytes % (Manual) Nucleated RBC % Seg Neutrophils # Man Lymphocytes # (Manual) D-Dimer POC ABG pH 7.465 H POC ABG pCO2 POC ABG pO2 Sodium Chloride Carbon Dioxide BUN Creatinine Glucose POC Glucose 149 H Calcium Magnesium Albumin Triglycerides Ur Specific [place] 06/01/18 06/01/18 06/01/18 05:50 05:50 05:51 Hgb MCV MCH MCHC RDW Plt Count Lymph % (Auto) [place] % (Auto) Lymph # [place] # Seg Neutrophils % Seg Neuts % (Manual) Lymphocytes % (Manual) Nucleated RBC % Seg Neutrophils # Man Lymphocytes # (Manual) D-Dimer POC ABG pH POC ABG pCO2 POC ABG pO2 Sodium 152 H Chloride 113.7 H Carbon Dioxide BUN 18 H Creatinine 0.3 L Glucose 146 H POC Glucose 146 H Calcium Magnesium 2.40 H Albumin Triglycerides 214 H Ur Specific [place] 06/01/18 06/01/18 06/01/18 10:40 11:52 12:06 Hgb MCV MCH MCHC RDW Plt Count Lymph % (Auto) [place] % (Auto) Lymph # [place] # Seg Neutrophils % Seg Neuts % (Manual) Lymphocytes % (Manual) Nucleated RBC % Seg Neutrophils # Man Lymphocytes # (Manual) D-Dimer POC ABG pH POC ABG pCO2 48.4 H POC ABG pO2 Sodium Chloride Carbon Dioxide BUN Creatinine Glucose POC Glucose 147 H 138 H Calcium Magnesium Albumin Triglycerides Ur Specific [place] 06/01/18 06/02/18 06/02/18 18:08 00:39 04:11 Hgb MCV MCH MCHC RDW Plt Count Lymph % (Auto) [place] % (Auto) Lymph # [place] # Seg Neutrophils % Seg Neuts % (Manual) Lymphocytes % (Manual) Nucleated RBC % Seg Neutrophils # Man Lymphocytes # (Manual) D-Dimer POC ABG pH POC ABG pCO2 50.3 H POC ABG pO2 72 L Sodium Chloride Carbon Dioxide BUN Creatinine Glucose POC Glucose 156 H 156 H Calcium Magnesium Albumin Triglycerides Ur Specific [place] 06/02/18 06/02/18 06/02/18 05:16 07:47 07:47 Hgb 10.0 L MCV 77 L MCH 23 L MCHC 29 L RDW 18.8 H Plt Count 103 L Lymph % (Auto) [place] % (Auto) Lymph # [place] # Seg Neutrophils % Seg Neuts % (Manual) Lymphocytes % (Manual) Nucleated RBC % Seg Neutrophils # Man Lymphocytes # (Manual) D-Dimer POC ABG pH POC ABG pCO2 POC ABG pO2 Sodium 148 H Chloride 109.4 H Carbon Dioxide 32 H BUN 21 H Creatinine 0.3 L Glucose 137 H POC Glucose 150 H Calcium Magnesium Albumin Triglycerides Ur Specific [place] 06/02/18 06/02/18 06/02/18 11:46 17:51 19:58 Hgb MCV MCH MCHC RDW Plt Count Lymph % (Auto) [place] % (Auto) Lymph # [place] # Seg Neutrophils % Seg Neuts % (Manual) Lymphocytes % (Manual) Nucleated RBC % Seg Neutrophils # Man Lymphocytes # (Manual) D-Dimer POC ABG pH POC ABG pCO2 POC ABG pO2 Sodium Chloride Carbon Dioxide BUN Creatinine Glucose POC Glucose 150 H 135 H 131 H Calcium Magnesium Albumin Triglycerides Ur Specific [place] 06/03/18 06/03/18 06/03/18 04:28 04:59 04:59 Hgb MCV 76 L MCH 23 L MCHC RDW 19.1 H Plt Count 99 L Lymph % (Auto) [place] % (Auto) Lymph # [place] # Seg Neutrophils % Seg Neuts % (Manual) Lymphocytes % (Manual) Nucleated RBC % Seg Neutrophils # Man Lymphocytes # (Manual) D-Dimer POC ABG pH POC ABG pCO2 50.4 H POC ABG pO2 65 L Sodium Chloride Carbon Dioxide BUN 23 H Creatinine 0.3 L Glucose 167 H POC Glucose Calcium Magnesium Albumin Triglycerides Ur Specific [place] 06/03/18 06/03/18 06/03/18 05:17 12:20 17:28 Hgb MCV MCH MCHC RDW Plt Count Lymph % (Auto) [place] % (Auto) Lymph # [place] # Seg Neutrophils % Seg Neuts % (Manual) Lymphocytes % (Manual) Nucleated RBC % Seg Neutrophils # Man Lymphocytes # (Manual) D-Dimer POC ABG pH POC ABG pCO2 POC ABG pO2 Sodium Chloride Carbon Dioxide BUN Creatinine Glucose POC Glucose 153 H 155 H 135 H Calcium Magnesium Albumin Triglycerides Ur Specific [place] 06/03/18 06/04/18 06/04/18 23:23 04:37 05:15 Hgb MCV MCH MCHC RDW Plt Count Lymph % (Auto) [place] % (Auto) Lymph # [place] # Seg Neutrophils % Seg Neuts % (Manual) Lymphocytes % (Manual) Nucleated RBC % Seg Neutrophils # Man Lymphocytes # (Manual) D-Dimer POC ABG pH POC ABG pCO2 51.3 H POC ABG pO2 79 L Sodium Chloride Carbon Dioxide BUN Creatinine Glucose POC Glucose 145 H 140 H Calcium Magnesium Albumin Triglycerides Ur Specific [place] 06/04/18 06/04/18 06/05/18 11:47 17:22 01:13 Hgb MCV MCH MCHC RDW Plt Count Lymph % (Auto) [place] % (Auto) Lymph # [place] # Seg Neutrophils % Seg Neuts % (Manual) Lymphocytes % (Manual) Nucleated RBC % Seg Neutrophils # Man Lymphocytes # (Manual) D-Dimer POC ABG pH POC ABG pCO2 POC ABG pO2 Sodium Chloride Carbon Dioxide BUN Creatinine Glucose POC Glucose 158 H 131 H 137 H Calcium Magnesium Albumin Triglycerides Ur Specific [place] 06/05/18 06/05/18 04:10 06:33 Hgb MCV MCH MCHC RDW Plt Count Lymph % (Auto) [place] % (Auto) Lymph # [place] # Seg Neutrophils % Seg Neuts % (Manual) Lymphocytes % (Manual) Nucleated RBC % Seg Neutrophils # Man Lymphocytes # (Manual) D-Dimer POC ABG pH POC ABG pCO2 56.3 H POC ABG pO2 61 L Sodium Chloride Carbon Dioxide BUN Creatinine Glucose POC Glucose 136 H Calcium Magnesium Albumin Triglycerides Ur Specific [place] Allied health notes reviewed: nursing
[2018-06-05] MEDS: LEVAQUIN 750MG/150ML 750 MG/150 ML BAG IV SCH (09:23)
[2018-06-05] MEDS: SODIUM CHLORIDE FLUSH SYRINGE 10 ML IV SCH (10:46)
[2018-06-05] MEDS ORDERED: LASIX IV ONE (11:00)
--- NOTE | 2018-06-05 11:16 | Progress Note ---
Assessment and Plan Cultures: 05/28/2018 blood culture: no growth 05/28/2018 Resp culture: E. coli, Pseudomonas aeruginosa 05/31/2018 blood culture: no growth A/P: 58-year-old female with COPD with chronic respiratory failure on home oxygen admitted with shortness of breath and confusion: 1) Septic shock: resolved, off pressors, fever resolved for 2 days; likely secondary to left lower lobe pneumonia requiring mechanical ventilation. Cultures growing resistant Pseudomonas, susceptible E.coli. On abx. 2) Acute on chronic respiratory failure with underlying COPD: On mechanical ventilation now on BIPAP 3) Acute encephalopathy: likely metabolic. Improving. 4) Spinal hardware noted on imaging, no concern for infection at present. Recs: continue Levofloxacin Day 6 of 10, will change to PO once extubated Dr Gupta will be rounding this weekend Mirtha Hairston MD Infectious Diseases [employer] [facility] [place] [facility] ([facility]) M [phone] O [phone] Subjective Date of service: 06/05/18 Principal diagnosis: Septic Shock (? LLL pneumonia); Ac on Ch hypoxic- hypercapnic Resp failure Interval history: Remains intubated now on CPAP, off sedative, alert, following commands. No fever for over 48h. ROS: unable to obtain. Objective - Exam Narrative Exam: General appearance: Alert on the vent Eyes: anicteric sclerae, moist conjunctivae; no lid-lag; PERRLA HENT: Atraumatic; oropharynx +ETT Neck: Trachea midline; supple, no thyromegaly or lymphadenopathy Lungs: CTA emma CV: RRR, Abdomen: Soft, non-tender; no masses or hepatosplenomegaly Extremities: No peripheral edema or extremity lymphadenopathy Skin: Normal temperature, turgor and texture; no rash, ulcers or subcutaneous nodules Psych:alert follows commands intubated - Constitutional Vitals: Vital Signs Temp Pulse Resp BP Pulse Ox 98.8 F 80 14 122/64 94 06/05/18 07:43 06/05/18 10:20 06/05/18 10:20 06/05/18 10:20 06/05/18 10:20 Temperature -Last 24 Hours Temperature 98.8 F Temperature 98.6 F Temperature 99.6 F Temperature 99.0 F Temperature 99.1 F Temperature 99.0 F - Labs CBC & Chem 7: 06/03/18 04:59 06/03/18 04:59 Labs: Abnormal lab results 06/04/18 06/04/18 06/05/18 Range/Units 11:47 17:22 01:13 POC ABG pCO2 (35-45) POC ABG pO2 (80-105) POC Glucose 158 H 131 H 137 H (70-105) 06/05/18 06/05/18 Range/Units 04:10 06:33 POC ABG pCO2 56.3 H (35-45) POC ABG pO2 61 L (80-105) POC Glucose 136 H (70-105)
--- NOTE | 2018-06-05 11:18 | Vascular Lab Report ---
PROCEDURE: VL VENOUS DUPLEX LE BILAT TECHNIQUE: Duplex Doppler ultrasound examination of the venous system of the right leg and left leg HISTORY: swelling COMPARISONS: None FINDINGS: RIGHT LEG: Normal compressibility, vascular patency, and augmentation are present diffusely throughout the visua lized portion of the deep veins. No abnormal intraluminal echoes are visualized to suggest deep vein thrombus. IMPRESSION: No ultrasound evidence of DVT in the right leg LEFT LEG: Normal compressibility, vascular patency, and augmentation are present diffusely throughout the visua lized portion of the deep veins. No abnormal intraluminal echoes are visualized to suggest deep vein thrombus. IMPRESSION: No ultrasound evidence of DVT in the left leg This document is electronically signed by Edgar Mccracken MD., June 05 2018 11:16:50 AM ET
[2018-06-05 15:58] LABS: BUN/Creatinine Ratio 63; Blood Urea Nitrogen 25 mg/dL (7-17); Calcium 9.3 mg/dL (8.4-10.2); Hemolysis Index 4
--- NOTE | 2018-06-05 17:00 | Progress Note ---
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 According to chart, pt has not been using her O2 and started hallucinating. She was intubated in the ED. She was also hypotensive in the ED and started on Vasopressor/Levophed * CTA chest IMPRESSION: 1. Study degraded by artifact created by retained hardware in the thoracic spine and by motion artifact. 2. No evidence of central pulmonary artery emboli. However, segmental pulmonary artery emboli could be missed or overcalled due to significant artifact. 3. Complete consolidation left lower lobe with air bronchograms and volume loss consistent with atelectasis. There appears to be opacification of a portion of the left lower lobe bronchus. 4. Tip of the endotracheal tube projected in satisfactory position. 5. Cardiomegaly. 6. IVC filter. 7. Prominent kyphosis of the thoracic spine with extensive instrumentation with retained hardware. * Abdominal 1 view XRAY IMPRESSION: Nasogastric tube is terminating in the stomach. Mild degree left pleural effusion * pCXR FINDINGS: Heart: Prominent cardiac silhouette. Mediastinum/Vessels: Prominent central vessels. Lungs/Pleural space: Left lung base airspace consolidation. Bony thorax: No acute osseous abnormality. Life support devices: The endotracheal tube tip is obscured by hardware in the thoracic spine, but likely projects approximately 4 cm superior to the carlos manuel. IMPRESSION: Prominent cardiac silhouette. Left lung base airspace consolidatio n -AMS with Acute encephalopathy, prior records show a long history of similar presentations and PCP toxicity: I ordered UDS -Acute on chronic combined respiratory failure s/p ETT MV: daily weaning attempt, consulted Commercial Lines Manager/Right Of Way Agent -Severe AE COPD: treat with iv steriods, abx, nebs around the clock -Hypotension due to circulatory shock possible septic shock from LLL pneumonia: off Vasopressor -Septic Shock suspected LLL Pseudomonas/E.coli pneumonia: treat with ivf, abx, ID following, trachea aspirate growing Gram negative==> PSA resistant to Aztreonam/zosyn/cefepime/fortaz but sensitive to cipro/gent/levaquin/tobramycin; E. coli has not resistant, changed antibiotics to Levaquin and Gentamicin on Friday. Gentamincine stopped. OFF Vasopressor since Friday. Sputum culture positive for Pseudomonas/Escherichia coli -DVT prophylaxis: sq Lovenox -Acute thrombocytopenia: Lovenox discontinued, awaiting HIT -Disposition: continue Critcal care, trying to wean off pressors and vent but still febrile full code CCT 31 minutes History Interval history: Patient seen and examined remained confused and on full mechanical support. Hospitalist Physical - Physical exam Narrative exam: General appearance: Present: no acute distress, other (pt is intubated.) - EENT Eyes: Present: PERRL ENT: clear oral mucosa, other (NGT noted) - Neck Neck: Present: supple - Respiratory Respiratory effort: normal Respiratory: bilateral: CTA - Cardiovascular Rhythm: regular (with tachycardia) Heart Sounds: Present: S1 & S2 - Extremities Extremities: No edema - Abdominal General gastrointestinal: soft, non-tender, non-distended, normal bowel sounds - Integumentary Integumentary: Present: clear, warm, dry - Neurologic Neurologic: other (patient is intubated and sedated) - Constitutional Vitals: Temp Pulse Resp BP Pulse Ox 99.7 F H 106 H 24 152/81 92 06/05/18 12:00 06/05/18 12:30 06/05/18 12:30 06/05/18 12:30 06/05/18 13:35 General appearance: Present: no acute distress, other (pt is intubated.) Results - Labs CBC & Chem 7: 06/03/18 04:59 06/05/18 15:27 Labs: Laboratory Last Values WBC 8.3 K/mm3 (4.5-11.0) 06/03/18 04:59 RBC 4.39 M/mm3 (3.65-5.03) 06/03/18 04:59 Hgb 10.1 gm/dl (10.1-14.3) 06/03/18 04:59 Hct 33.3 % (30.3-42.9) 06/03/18 04:59 MCV 76 fl (79-97) L 06/03/18 04:59 MCH 23 pg (28-32) L 06/03/18 04:59 MCHC 30 % (30-34) 06/03/18 04:59 RDW 19.1 % (13.2-15.2) H 06/03/18 04:59 Plt Count 99 K/mm3 (140-440) L 06/03/18 04:59 Lymph % (Auto) 8.5 % (13.4-35.0) L 05/28/18 13:13 Owen % (Auto) 11.3 % (0.0-7.3) H 05/28/18 13:13 Eos % (Auto) 0.0 % (0.0-4.3) 05/28/18 13:13 Baso % (Auto) 0.4 % (0.0-1.8) 05/28/18 13:13 Lymph # 0.8 K/mm3 (1.2-5.4) L 05/28/18 13:13 Owen # 1.1 K/mm3 (0.0-0.8) H 05/28/18 13:13 Eos # 0.0 K/mm3 (0.0-0.4) 05/28/18 13:13 Baso # 0.0 K/mm3 (0.0-0.1) 05/28/18 13:13 Add Manual Diff Complete 05/31/18 08:50 Total Counted 100 05/31/18 08:50 Seg Neutrophils % Cfa 05/31/18 08:50 Seg Neuts % (Manual) 98.0 % (40.0-70.0) H 05/31/18 08:50 Band Neutrophils % 0 % 05/31/18 08:50 Lymphocytes % (Manual) 2.0 % (13.4-35.0) L 05/31/18 08:50 Reactive Lymphs % (Man) 0 % 05/31/18 08:50 Monocytes % (Manual) 0 % (0.0-7.3) 05/31/18 08:50 Eosinophils % (Manual) 0 % (0.0-4.3) 05/31/18 08:50 Basophils % (Manual) 0 % (0.0-1.8) 05/31/18 08:50 Metamyelocytes % 0 % 05/31/18 08:50 Myelocytes % 0 % 05/31/18 08:50 Promyelocytes % 0 % 05/31/18 08:50 Blast Cells % 0 % 05/31/18 08:50 Nucleated RBC % 1.0 % (0.0-0.9) H 05/31/18 08:50 Seg Neutrophils # 7.7 K/mm3 (1.8-7.7) 05/28/18 13:13 Seg Neutrophils # Man 8.4 K/mm3 (1.8-7.7) H 05/31/18 08:50 Band Neutrophils # 0.0 K/mm3 05/31/18 08:50 Lymphocytes # (Manual) 0.2 K/mm3 (1.2-5.4) L 05/31/18 08:50 Abs React Lymphs (Man) 0.0 K/mm3 05/31/18 08:50 Monocytes # (Manual) 0.0 K/mm3 (0.0-0.8) 05/31/18 08:50 Eosinophils # (Manual) 0.0 K/mm3 (0.0-0.4) 05/31/18 08:50 Basophils # (Manual) 0.0 K/mm3 (0.0-0.1) 05/31/18 08:50 Metamyelocytes # 0.0 K/mm3 05/31/18 08:50 Myelocytes # 0.0 K/mm3 05/31/18 08:50 Promyelocytes # 0.0 K/mm3 05/31/18 08:50 Blast Cells # 0.0 K/mm3 05/31/18 08:50 WBC Morphology Not Reportable 05/31/18 08:50 Hypersegmented Neuts Not Reportable 05/31/18 08:50 Hyposegmented Neuts Not Reportable 05/31/18 08:50 Hypogranular Neuts Not Reportable 05/31/18 08:50 Smudge Cells Not Reportable 05/31/18 08:50 Toxic Granulation Not Reportable 05/31/18 08:50 Toxic Vacuolation Not Reportable 05/31/18 08:50 Dohle Bodies Not Reportable 05/31/18 08:50 Pelger-Huet Anomaly Not Reportable 05/31/18 08:50 Neha Rods Not Reportable 05/31/18 08:50 Platelet Estimate Consistent w auto 05/31/18 08:50 Clumped Platelets Not Reportable 05/31/18 08:50 Plt Clumps, EDTA Not Reportable 05/31/18 08:50 Large Platelets Not Reportable 05/31/18 08:50 Giant Platelets Not Reportable 05/31/18 08:50 Platelet Satelliting Not Reportable 05/31/18 08:50 Plt Morphology Comment Not Reportable 05/31/18 08:50 RBC Morphology Not Reportable 05/31/18 08:50 Dimorphic RBCs Not Reportable 05/31/18 08:50 Polychromasia Few 05/31/18 08:50 Hypochromasia Few 05/31/18 08:50 Poikilocytosis Not Reportable 05/31/18 08:50 Anisocytosis Not Reportable 05/31/18 08:50 Microcytosis Not Reportable 05/31/18 08:50 Macrocytosis Not Reportable 05/31/18 08:50 Spherocytes Not Reportable 05/31/18 08:50 Pappenheimer Bodies Not Reportable 05/31/18 08:50 Sickle Cells Not Reportable 05/31/18 08:50 Target Cells Not Reportable 05/31/18 08:50 Tear Drop Cells Not Reportable 05/31/18 08:50 Ovalocytes Not Reportable 05/31/18 08:50 Stomatocytes Rare 05/31/18 08:50 Helmet Cells Not Reportable 05/31/18 08:50 [place] Bodies Not Reportable 05/31/18 08:50 [place] Rings Not Reportable 05/31/18 08:50 [place] Cells Not Reportable 05/31/18 08:50 Bite Cells Not Reportable 05/31/18 08:50 Crenated Cell Not Reportable 05/31/18 08:50 Elliptocytes Not Reportable 05/31/18 08:50 Acanthocytes (Spur) Not Reportable 05/31/18 08:50 Rouleaux Not Reportable 05/31/18 08:50 Hemoglobin C Crystals Not Reportable 05/31/18 08:50 Schistocytes Not Reportable 05/31/18 08:50 Malaria parasites Not Reportable 05/31/18 08:50 [place]an Bodies Not Reportable 05/31/18 08:50 Hem Pathologist Commnt No 05/31/18 08:50 D-Dimer 1062.49 ng/mlDDU (0-234) H 05/28/18 13:13 POC ABG pH 7.384 (7.35-7.45) 06/05/18 04:10 POC ABG pCO2 56.3 (35-45) H 06/05/18 04:10 POC ABG pO2 61 (80-105) L 06/05/18 04:10 POC ABG HCO3 33.6 (22-26 mml/L) 06/05/18 04:10 POC ABG Total CO2 35 (23-27mmol/L) 06/05/18 04:10 POC ABG O2 Sat 90 06/05/18 04:10 POC ABG Base Excess 9 ((-2) - (+3)mmol/L) 06/05/18 04:10 FiO2 45 % 06/05/18 04:10 Sodium 144 mmol/L (137-145) 06/05/18 15:27 Potassium 4.3 mmol/L (3.6-5.0) 06/05/18 15:27 Chloride 99.9 mmol/L (98-107) 06/05/18 15:27 Carbon Dioxide 36 mmol/L (22-30) H D 06/05/18 15:27 Anion Gap 12 mmol/L 06/05/18 15:27 BUN 25 mg/dL (7-17) H 06/05/18 15:27 Creatinine 0.4 mg/dL (0.7-1.2) L 06/05/18 15:27 Estimated GFR > 60 ml/min 06/05/18 15:27 BUN/Creatinine Ratio 63 % 06/05/18 15:27 Glucose 130 mg/dL (65-100) H 06/05/18 15:27 POC Glucose 150 (70-105) H 06/05/18 11:41 Lactic Acid 0.90 mmol/L (0.7-2.0) 05/28/18 14:50 Calcium 9.3 mg/dL (8.4-10.2) 06/05/18 15:27 Magnesium 2.40 mg/dL (1.7-2.3) H 06/01/18 05:50 Total Bilirubin 0.30 mg/dL (0.1-1.2) 05/28/18 13:13 AST 23 units/L (5-40) 05/28/18 13:13 ALT 11 units/L (7-56) 05/28/18 13:13 Alkaline Phosphatase 96 units/L (35-129) 05/28/18 13:13 Troponin T < 0.010 ng/mL (0.00-0.029) 05/28/18 13:13 Total Protein 6.6 g/dL (6.3-8.2) 05/28/18 13:13 Albumin 3.5 g/dL (3.9-5) L 05/28/18 13:13 Albumin/Globulin Ratio 1.1 % 05/28/18 13:13 Triglycerides 214 mg/dL (2-149) H 06/01/18 05:50 Urine Color Yellow (Yellow) 05/28/18 17:57 Urine Turbidity Clear (Clear) 05/28/18 17:57 Urine pH 6.0 (5.0-7.0) 05/28/18 17:57 Ur Specific [place] > 1.030 (1.003-1.030) H 05/28/18 17:57 Urine Protein 100 mg/dl mg/dL (Negative) 05/28/18 17:57 Urine Glucose (UA) Neg mg/dL (Negative) 05/28/18 17:57 Urine Ketones 20 mg/dL (Negative) 05/28/18 17:57 Urine Blood Sm (Negative) 05/28/18 17:57 Urine Nitrite Neg (Negative) 05/28/18 17:57 Urine Bilirubin Neg (Negative) 05/28/18 17:57 Urine Urobilinogen 2.0 mg/dL (<2.0) 05/28/18 17:57 Ur Leukocyte Esterase Neg (Negative) 05/28/18 17:57 Urine WBC (Auto) 1.0 /HPF (0.0-6.0) 05/28/18 17:57 Urine RBC (Auto) 2.0 /HPF (0.0-6.0) 05/28/18 17:57 U Epithel Cells (Auto) < 1.0 /HPF (0-13.0) 05/28/18 17:57 Urine Mucus Few /HPF 05/28/18 17:57 Random Gentamicin 0.4 ug/mL (0.0-10.0) 06/01/18 05:50 Vancomycin Trough 7.2 ug/mL (5.0-20.0) 05/31/18 09:39 Urine Opiates Screen Presumptive negative 05/29/18 23:50 Urine Methadone Screen Presumptive negative 05/29/18 23:50 Ur Barbiturates Screen Presumptive negative 05/29/18 23:50 Ur Phencyclidine Scrn Presumptive negative 05/29/18 23:50 Ur Amphetamines Screen Presumptive negative 05/29/18 23:50 U Benzodiazepines Scrn Presumptive negative 05/29/18 23:50 Urine Cocaine Screen Presumptive negative 05/29/18 23:50 U Marijuana (THC) Screen Presumptive negative 05/29/18 23:50 Drugs of Abuse Note Disclamer 05/29/18 23:50 Active Medications - Current Medications Current Medications: Generic Name Dose Route Start Last Admin Trade Name Freq PRN Reason Stop Dose Admin Acetaminophen 650 mg 05/31/18 09:02 05/31/18 09:26 Tylenol FEEDTUBE 650 mg Q6H PRN Administration Non Cardiac Pain or Temp>100.5 Albuterol/Ipratropium 1 ampul 06/04/18 20:00 06/05/18 07:58 Duoneb *Not For Prn Use* IH 1 ampul BIDRT DOMINICK Administration Amlodipine Besylate 10 mg 05/29/18 10:00 06/05/18 09:21 Norvasc PO 10 mg DAILY DOMINICK Administration Lipase/Protease/Amylase 1 each 05/28/18 22:[address] 10,500 Unit FEEDTUBE PRN PRN For Clogged Feeding Tube Arformoterol Tartrate 15 mcg 06/04/18 20:00 06/05/18 07:58 Brovana Nebu IH 15 mcg Q12HRT DOMINICK Administration Baclofen 10 mg 05/28/18 23:00 06/05/18 09:20 Lioresal PO 10 mg BID DOMINICK Administration Budesonide 0.5 mg 05/28/18 22:45 06/05/18 07:58 Pulmicort IH 0.5 mg Q12HRT DOMINICK Administration Buspirone HCl 5 mg 05/28/18 23:00 06/05/18 09:20 Buspar PO 5 mg BID DOMINICK Administration Fentanyl Citrate 2,000 mcg in 100 mls @ 3.969 mls/hr 05/28/18 21:00 06/05/18 08:11 Fentanyl Drip Premix IV 0 mcg/kg/hr TITR DOMINICK 0 mls/hr Titration Protocol 1 MCG/KG/HR Propofol 1,000 mg in 100 mls @ 2.526 mls/hr 05/30/18 02:07 06/02/18 07:39 Diprivan 10 Mg/Ml IV 0 mcg/kg/min TITR DOMINICK 0 mls/hr Titration Protocol 5 MCG/KG/MIN Levofloxacin/Dextrose 750 mg in 150 mls @ 100 mls/hr 05/31/18 11:00 06/05/18 10:57 Levaquin 750mg/150ml IV Infused Q24HR DOMINICK Infusion Protocol Insulin Human Lispro 0 unit 06/01/18 10:00 06/05/18 11:48 Humalog SUB-Q Not Given Q6HR [facility] Protocol Lansoprazole 30 mg 05/30/18 10:00 06/05/18 09:21 Prevacid Solutab FEEDTUBE 30 mg QDAY DOMINICK Administration Lisinopril 10 mg 05/29/18 10:00 06/05/18 09:21 Zestril PO 10 mg QDAY DOMINICK Administration Lorazepam 2 mg 05/31/18 08:39 06/04/18 10:14 Ativan IV 2 mg Q1H PRN Administration CIWA-Ar 8-15 Lorazepam 4 mg 05/31/18 08:39 Ativan IV Q1H PRN CIWA-Ar 16-25 Lorazepam 4 mg 05/31/18 08:39 Ativan IV Q15MIN PRN CIWA-Ar >25 Methylprednisolone Sodium Succinate 60 mg 05/31/18 14:00 06/05/18 14:32 Solu-Medrol IV 60 mg Q8HR DOMINICK Administration Metoprolol Tartrate 100 mg 05/31/18 10:00 06/05/18 09:21 Lopressor PO 100 mg BID DOMINICK Administration Quetiapine Fumarate 300 mg 06/04/18 22:00 06/05/18 09:22 Seroquel PO 300 mg BID DOMINICK Administration Simple Syrup 15 ml 05/28/18 22:45 Simple Syrup FEEDTUBE PRN PRN Hypoglycemia Simple Syrup 30 ml 05/28/18 22:45 Simple Syrup FEEDTUBE PRN PRN Hypoglycemia Sodium Bicarbonate 325 mg 05/28/18 22:45 Sodium Bicarbonate FEEDTUBE PRN PRN For Clogged Feeding Tube Sodium Chloride 10 ml 05/29/18 10:00 06/05/18 10:46 Sodium Chloride Flush Syringe 10 Ml IV 10 ml BID DOMINICK Administration Sodium Chloride 10 ml 05/28/18 22:45 05/31/18 13:32 Sodium Chloride Flush Syringe 10 Ml IV 10 ml PRN PRN Administration LINE FLUSH Nutrition/Malnutrition Assess - Dietary Evaluation Nutrition/Malnutrition Findings: Nutrition Notes Start: 05/29/18 09:32 Freq: Status: Active Protocol: Document 06/05/18 10:49 TW (Rec: 06/05/18 11:02 TW [id number]) Co-Sign 06/05/18 10:49 LP Nutrition Notes Initial or Follow up Reassessment Current Diagnosis COPD,Hypertension,Respiratory Failure Other Pertinent Diagnosis COPD exacerbation, End-stage lung Dz Current Diet Vital High Protein at 45mL/hr Labs/Tests reviewed Pertinent Medications Propofol at 5.052mL/hr ( provides 133 lipid kcal) Solumedrol Levophed gtt Lasix Height 5 ft Weight 93.5 kg [place] Body Weight (kg) 45.45 BMI 40.2 Weight Status Obese Subjective/Other Information F/U for stable TF. Noted TF not running since 8:00 am. TF will continue to be held for extubation. TF will continue to goal after procedure. As discussed in interdisciplinary rounds, pt jose have diet advanced if okayed by SENIOR PRODUCTION MANAGER. Burn Absent Trauma Absent #1 Nutrition Diagnosis Inadequate oral intake Diagnosis Progress(for reassessment Continues documentation) Is patient on ventilator? Yes Is Patient Ambulatory and/or Out of Bed No REE-([facility]-confined to bed) 1716.444 Kcal/Kg value to use for calculation 14 Approximate Energy Requirements Using 1309 kcal/Kg Calculation Used for Recommendations Kcal/kg Additional Notes Pro needs 2g/kg IBW: 91g/day Fluid needs 1ml/kcal Nutrition Intervention Change Diet Order: Advance when medically feasible Nutrition Support: Continue Vital High Protein at 50mL/hr. Flush for hypernatermia per MD at this time until hypernatermia resolved then 50mL q4h Kcal 1,200 Protein (gm) 105 Fluid (mL) 1,003 Goal #1 TF tolerance Goal #2 TF to meet 80-100% energy and protein needs Goal #3 diet advancement Anticipated Discharge Needs: Unable to identify at this time Follow-Up By: 06/09/18 Additional Comments F/U: stable TF post-extubation / possible diet advancement
[2018-06-05] MEDS: ATIVAN IV PRN (22:00)
[2018-06-06] MEDS: HumaLOG SUB-Q SCH ×4 (00:30→18:00)
[2018-06-06] MEDS: ATIVAN IV PRN ×6 (05:00→17:59)
[2018-06-06] MEDS: BUSPAR PO SCH ×2 (05:49→10:00)
[2018-06-06] MEDS: LOPRESSOR PO SCH ×2 (05:49→10:00)
[2018-06-06] MEDS: LIORESAL PO SCH ×3 (05:49→22:00)
[2018-06-06] MEDS: FREE WATER PO SCH ×7 (05:49→22:00)
[2018-06-06] MEDS: SODIUM CHLORIDE FLUSH SYRINGE 10 ML IV PRN (05:50)
[2018-06-06] MEDS: SOLU-Medrol IV SCH ×3 (06:00→22:00)
[2018-06-06] MEDS: PULMICORT IH SCH ×2 (08:41→20:05)
[2018-06-06] MEDS: BROVANA NEBU IH SCH ×2 (08:41→20:05)
[2018-06-06] MEDS: DUONEB *Not for PRN Use IH SCH ×2 (08:41→20:05)
--- NOTE | 2018-06-06 09:55 | Progress Note ---
Assessment and Plan Septic Shock suspected LLL pneumonia, SOFA score >2 Acute on chronic combined( hypoxic-hypercapnic) respiratory failure s/p ETT MVS Severe AE COPD AMS with Acute encephalopathy Macrocytosis GNR pneumonia, probably secondary to aspiration Acute encephalaopthy( toxic, metabolic) History of substance abuse - bedside dysphagia screen +/- ST evaluation - continue scheduled duonebs bid - continue seroquel at 300 mg bid - continue brovana & pulmicort - PT/OT to increase ambulation - bilateral lower extremity dopplers negative for DVT - continue to wean supplemental oxygen to keep O2 sats 88-90% (remains on 40% v enti-mask) - continue Lung protective strategies - Oxygen restrictive strategies acutely (target sat's 88-90% acutely) - prn ABGs/CXR at this point - complete empiric antibiotics for aspiration PNA - Follow tracheal aspirate cultures and adjust antibiotic therapy based on VITO/ID - continue Stress ulcer prophylaxis - continue VTE prophylaxis - continue systemic steroids with slow taper - resume chronic home medications per attending - continue accuchecks with glycemic control for target glucose of 140-180 mg/dL - Continue bronchodilators with pulmonary hygiene per RT - continue maintenance of sleep -wake cycle - continue mobility as tolerated by hemodynamics - Influenza and pneumonia vaccination addressed per protocol ..care plan discussed at length with RN/RT during rounds PROGNOSIS fair CONDITION: CRITICAL CODE STATUS: FULL CODE .... tentatively transfer out of ICU tomorrow ... 37' care time Subjective Date of service: 06/06/18 Principal diagnosis: Septic Shock (? LLL pneumonia); Ac on Ch hypoxic- hypercapnic Resp failure Interval history: Patient is seen today for: Septic Shock suspected LLL pneumonia, SOFA score > 2; Acute on chronic combined( hypoxic-hypercapnic) respiratory failure s/p ETT MVS; Severe AE COPD; AMS with Acute encephalopathy; Macrocytosis Seen and examined at bedside; 24hour events reviewed; nursing and respiratory care staff consulted; no adverse overnight events reported to me; extubated and tolerating well so far; less agitated overall; denies acute chest pains or palpitations; off vasopressors; no new issues otherwise Objective Vital Signs - 12hr 06/05/18 06/05/18 06/05/18 22:00 22:10 22:20 Temperature Pulse Rate 89 94 H 92 H Pulse Rate [ Anterior Bilateral] Pulse Rate [ 98 H Apical] Pulse Rate [ 98 H From Monitor] Pulse Rate [ 98 H Left Dorsalis Pedis] Pulse Rate [ 98 H Left Radial] Pulse Rate [ 98 H Right Dorsalis Pedis] Pulse Rate [ 98 H Right Radial] Respiratory 18 22 23 Rate Respiratory Rate [Anterior Bilateral] Blood Pressure 122/62 122/62 139/70 O2 Sat by Pulse 97 96 96 Oximetry 06/05/18 06/05/18 06/05/18 22:30 22:40 22:50 Temperature Pulse Rate 94 H 88 Pulse Rate [ Anterior Bilateral] Pulse Rate [ Apical] Pulse Rate [ From Monitor] Pulse Rate [ Left Dorsalis Pedis] Pulse Rate [ Left Radial] Pulse Rate [ Right Dorsalis Pedis] Pulse Rate [ Right Radial] Respiratory 18 22 17 Rate Respiratory Rate [Anterior Bilateral] Blood Pressure 130/61 130/61 130/61 O2 Sat by Pulse 91 92 95 Oximetry 06/05/18 06/05/18 06/05/18 23:00 23:10 23:20 Temperature Pulse Rate 96 H 89 85 Pulse Rate [ Anterior Bilateral] Pulse Rate [ Apical] Pulse Rate [ From Monitor] Pulse Rate [ Left Dorsalis Pedis] Pulse Rate [ Left Radial] Pulse Rate [ Right Dorsalis Pedis] Pulse Rate [ Right Radial] Respiratory 20 22 21 Rate Respiratory Rate [Anterior Bilateral] Blood Pressure 137/62 137/62 137/62 O2 Sat by Pulse 96 96 95 Oximetry 06/05/18 06/05/18 06/05/18 23:30 23:40 23:50 Temperature Pulse Rate 83 79 78 Pulse Rate [ Anterior Bilateral] Pulse Rate [ Apical] Pulse Rate [ From Monitor] Pulse Rate [ Left Dorsalis Pedis] Pulse Rate [ Left Radial] Pulse Rate [ Right Dorsalis Pedis] Pulse Rate [ Right Radial] Respiratory 24 20 20 Rate Respiratory Rate [Anterior Bilateral] Blood Pressure 94/50 94/50 94/50 O2 Sat by Pulse 94 95 95 Oximetry 06/06/18 06/06/18 06/06/18 00:00 00:10 00:20 Temperature Pulse Rate 77 87 99 H Pulse Rate [ Anterior Bilateral] Pulse Rate [ Apical] Pulse Rate [ From Monitor] Pulse Rate [ Left Dorsalis Pedis] Pulse Rate [ Left Radial] Pulse Rate [ Right Dorsalis Pedis] Pulse Rate [ Right Radial] Respiratory 20 23 18 Rate Respiratory Rate [Anterior Bilateral] Blood Pressure 84/44 124/61 84/44 O2 Sat by Pulse 95 96 97 Oximetry 06/06/18 06/06/18 06/06/18 00:30 00:31 00:40 Temperature Pulse Rate 98 H 96 H 103 H Pulse Rate [ Anterior Bilateral] Pulse Rate [ Apical] Pulse Rate [ From Monitor] Pulse Rate [ Left Dorsalis Pedis] Pulse Rate [ Left Radial] Pulse Rate [ Right Dorsalis Pedis] Pulse Rate [ Right Radial] Respiratory 17 28 H 15 Rate Respiratory Rate [Anterior Bilateral] Blood Pressure 124/97 124/97 124/97 O2 Sat by Pulse 98 97 94 Oximetry 06/06/18 06/06/18 06/06/18 00:50 01:00 01:10 Temperature Pulse Rate 98 H 104 H 108 H Pulse Rate [ Anterior Bilateral] Pulse Rate [ Apical] Pulse Rate [ From Monitor] Pulse Rate [ Left Dorsalis Pedis] Pulse Rate [ Left Radial] Pulse Rate [ Right Dorsalis Pedis] Pulse Rate [ Right Radial] Respiratory 18 19 14 Rate Respiratory Rate [Anterior Bilateral] Blood Pressure 124/97 162/78 162/78 O2 Sat by Pulse 95 94 93 Oximetry 06/06/18 06/06/18 06/06/18 01:20 01:30 01:40 Temperature Pulse Rate 106 H 107 H 109 H Pulse Rate [ Anterior Bilateral] Pulse Rate [ Apical] Pulse Rate [ From Monitor] Pulse Rate [ Left Dorsalis Pedis] Pulse Rate [ Left Radial] Pulse Rate [ Right Dorsalis Pedis] Pulse Rate [ Right Radial] Respiratory 19 20 29 H Rate Respiratory Rate [Anterior Bilateral] Blood Pressure 162/78 152/80 152/80 O2 Sat by Pulse 93 93 93 Oximetry 06/06/18 06/06/18 06/06/18 01:50 02:00 02:10 Temperature Pulse Rate 110 H 113 H 113 H Pulse Rate [ Anterior Bilateral] Pulse Rate [ 104 H Apical] Pulse Rate [ 104 H From Monitor] Pulse Rate [ 104 H Left Dorsalis Pedis] Pulse Rate [ 104 H Left Radial] Pulse Rate [ 104 H Right Dorsalis Pedis] Pulse Rate [ 104 H Right Radial] Respiratory 20 30 H 34 H Rate Respiratory Rate [Anterior Bilateral] Blood Pressure 152/80 162/87 162/85 O2 Sat by Pulse 93 91 91 Oximetry 06/06/18 06/06/18 06/06/18 02:20 02:30 02:40 Temperature Pulse Rate 113 H 111 H 108 H Pulse Rate [ Anterior Bilateral] Pulse Rate [ Apical] Pulse Rate [ From Monitor] Pulse Rate [ Left Dorsalis Pedis] Pulse Rate [ Left Radial] Pulse Rate [ Right Dorsalis Pedis] Pulse Rate [ Right Radial] Respiratory 26 H 25 H 28 H Rate Respiratory Rate [Anterior Bilateral] Blood Pressure 162/87 159/76 159/76 O2 Sat by Pulse 93 91 93 Oximetry 06/06/18 06/06/18 06/06/18 02:50 03:00 03:10 Temperature Pulse Rate 110 H 108 H 113 H Pulse Rate [ Anterior Bilateral] Pulse Rate [ Apical] Pulse Rate [ From Monitor] Pulse Rate [ Left Dorsalis Pedis] Pulse Rate [ Left Radial] Pulse Rate [ Right Dorsalis Pedis] Pulse Rate [ Right Radial] Respiratory 23 17 18 Rate Respiratory Rate [Anterior Bilateral] Blood Pressure 150/79 156/70 156/70 O2 Sat by Pulse 93 94 92 Oximetry 06/06/18 06/06/18 06/06/18 03:20 03:30 03:40 Temperature Pulse Rate 111 H 111 H 109 H Pulse Rate [ Anterior Bilateral] Pulse Rate [ Apical] Pulse Rate [ From Monitor] Pulse Rate [ Left Dorsalis Pedis] Pulse Rate [ Left Radial] Pulse Rate [ Right Dorsalis Pedis] Pulse Rate [ Right Radial] Respiratory 22 26 H 24 Rate Respiratory Rate [Anterior Bilateral] Blood Pressure 151/77 143/76 143/76 O2 Sat by Pulse 93 94 94 Oximetry 06/06/18 06/06/18 06/06/18 03:50 04:00 04:10 Temperature Pulse Rate 113 H 112 H 112 H Pulse Rate [ Anterior Bilateral] Pulse Rate [ Apical] Pulse Rate [ From Monitor] Pulse Rate [ Left Dorsalis Pedis] Pulse Rate [ Left Radial] Pulse Rate [ Right Dorsalis Pedis] Pulse Rate [ Right Radial] Respiratory 17 20 30 H Rate Respiratory Rate [Anterior Bilateral] Blood Pressure 156/88 137/92 137/92 O2 Sat by Pulse 94 92 93 Oximetry 06/06/18 06/06/18 06/06/18 04:20 04:30 04:40 Temperature Pulse Rate 110 H 113 H 113 H Pulse Rate [ Anterior Bilateral] Pulse Rate [ Apical] Pulse Rate [ From Monitor] Pulse Rate [ Left Dorsalis Pedis] Pulse Rate [ Left Radial] Pulse Rate [ Right Dorsalis Pedis] Pulse Rate [ Right Radial] Respiratory 29 H 26 H 24 Rate Respiratory Rate [Anterior Bilateral] Blood Pressure 153/105 161/94 161/94 O2 Sat by Pulse 93 92 92 Oximetry 06/06/18 06/06/18 06/06/18 04:50 04:59 05:00 Temperature Pulse Rate 113 H 115 H 116 H Pulse Rate [ Anterior Bilateral] Pulse Rate [ Apical] Pulse Rate [ From Monitor] Pulse Rate [ Left Dorsalis Pedis] Pulse Rate [ Left Radial] Pulse Rate [ Right Dorsalis Pedis] Pulse Rate [ Right Radial] Respiratory 18 32 H 27 H Rate Respiratory Rate [Anterior Bilateral] Blood Pressure 153/70 153/70 144/124 O2 Sat by Pulse 92 92 93 Oximetry 06/06/18 06/06/18 06/06/18 05:10 05:20 05:30 Temperature Pulse Rate 115 H 108 H 117 H Pulse Rate [ Anterior Bilateral] Pulse Rate [ Apical] Pulse Rate [ From Monitor] Pulse Rate [ Left Dorsalis Pedis] Pulse Rate [ Left Radial] Pulse Rate [ Right Dorsalis Pedis] Pulse Rate [ Right Radial] Respiratory 23 22 29 H Rate Respiratory Rate [Anterior Bilateral] Blood Pressure 144/124 147/106 137/116 O2 Sat by Pulse 82 L 99 93 Oximetry 06/06/18 06/06/18 06/06/18 05:40 05:50 06:00 Temperature Pulse Rate 114 H 112 H 116 H Pulse Rate [ Anterior Bilateral] Pulse Rate [ Apical] Pulse Rate [ From Monitor] Pulse Rate [ Left Dorsalis Pedis] Pulse Rate [ Left Radial] Pulse Rate [ Right Dorsalis Pedis] Pulse Rate [ Right Radial] Respiratory 30 H 29 H 25 H Rate Respiratory Rate [Anterior Bilateral] Blood Pressure 137/116 145/86 137/95 O2 Sat by Pulse 93 93 93 Oximetry 06/06/18 06/06/18 06/06/18 06:10 06:20 06:30 Temperature Pulse Rate 109 H 111 H 108 H Pulse Rate [ Anterior Bilateral] Pulse Rate [ Apical] Pulse Rate [ From Monitor] Pulse Rate [ Left Dorsalis Pedis] Pulse Rate [ Left Radial] Pulse Rate [ Right Dorsalis Pedis] Pulse Rate [ Right Radial] Respiratory 28 H 31 H 32 H Rate Respiratory Rate [Anterior Bilateral] Blood Pressure 137/95 127/97 123/87 O2 Sat by Pulse 93 92 94 Oximetry 06/06/18 06/06/18 06/06/18 06:40 06:50 07:00 Temperature Pulse Rate 110 H 107 H Pulse Rate [ Anterior Bilateral] Pulse Rate [ Apical] Pulse Rate [ From Monitor] Pulse Rate [ Left Dorsalis Pedis] Pulse Rate [ Left Radial] Pulse Rate [ Right Dorsalis Pedis] Pulse Rate [ Right Radial] Respiratory 32 H 14 Rate Respiratory Rate [Anterior Bilateral] Blood Pressure 123/87 121/97 168/87 O2 Sat by Pulse 94 95 95 Oximetry 06/06/18 06/06/18 06/06/18 07:10 07:20 08:00 Temperature 98.4 F Pulse Rate 114 H 112 H Pulse Rate [ Anterior Bilateral] Pulse Rate [ Apical] Pulse Rate [ From Monitor] Pulse Rate [ Left Dorsalis Pedis] Pulse Rate [ Left Radial] Pulse Rate [ Right Dorsalis Pedis] Pulse Rate [ Right Radial] Respiratory 18 23 Rate Respiratory Rate [Anterior Bilateral] Blood Pressure 168/87 149/95 O2 Sat by Pulse 94 93 Oximetry 06/06/18 06/06/18 08:40 08:45 Temperature Pulse Rate Pulse Rate [ 120 H 121 H Anterior Bilateral] Pulse Rate [ Apical] Pulse Rate [ From Monitor] Pulse Rate [ Left Dorsalis Pedis] Pulse Rate [ Left Radial] Pulse Rate [ Right Dorsalis Pedis] Pulse Rate [ Right Radial] Respiratory Rate Respiratory 20 20 Rate [Anterior Bilateral] Blood Pressure O2 Sat by Pulse Oximetry Constitutional: appears uncomfortable, other (elderly chronically ill looking CF; normocephalic and with mild patient-vent dyssynchrony) Eyes: non-icteric ENT: oropharynx moist, other (extubated) Neck: supple, no lymphadenopathy, no JVD, other (no thyromegaly) Effort: mildly labored Ascultation: Bilateral: diminished breath sounds, rales Percussion: Bilateral: not dull Cardiovascular: regular rate and rhythm, murmur noted (ANGELO) Gastrointestinal: normoactive bowel sounds, soft, non-tender, non-distended Integumentary: normal Extremities: no cyanosis, no edema, pink and warm, pulses normal Neurologic: non-focal exam (grossly), pupils equal and round, CN II-XII normal, motor strength normal and Psychiatric: mood appropriate, affect normal CBC and BMP: 06/03/18 04:59 06/05/18 15:27 ABG, PT/INR, D-dimer: ABG POC ABG pH 7.384 (7.35-7.45) 06/05/18 04:10 POC ABG pCO2 56.3 (35-45) H 06/05/18 04:10 POC ABG pO2 61 (80-105) L 06/05/18 04:10 POC ABG HCO3 33.6 (22-26 mml/L) 06/05/18 04:10 POC ABG Total CO2 35 (23-27mmol/L) 06/05/18 04:10 POC ABG O2 Sat 90 06/05/18 04:10 PT/INR, D-dimer D-Dimer 1062.49 ng/mlDDU (0-234) H 05/28/18 13:13 Abnormal lab findings: Abnormal Labs 05/28/18 05/28/18 05/28/18 13:13 13:13 13:13 Hgb 9.7 L MCV 77 L MCH 23 L MCHC 29 L RDW 19.2 H Plt Count Lymph % (Auto) 8.5 L [place] % (Auto) 11.3 H Lymph # 0.8 L [place] # 1.1 H Seg Neutrophils % 79.8 H Seg Neuts % (Manual) Lymphocytes % (Manual) Nucleated RBC % Seg Neutrophils # Man Lymphocytes # (Manual) D-Dimer 1062.49 H POC ABG pH POC ABG pCO2 POC ABG pO2 Sodium Chloride Carbon Dioxide BUN 24 H Creatinine 0.6 L Glucose POC Glucose Calcium Magnesium Albumin 3.5 L Triglycerides Ur Specific [employer] 05/28/18 05/28/18 05/28/18 13:22 14:50 16:05 Hgb MCV MCH MCHC RDW Plt Count Lymph % (Auto) [place] % (Auto) Lymph # [place] # Seg Neutrophils % Seg Neuts % (Manual) Lymphocytes % (Manual) Nucleated RBC % Seg Neutrophils # Man Lymphocytes # (Manual) D-Dimer POC ABG pH 7.249 L 7.126 L POC ABG pCO2 68.9 H POC ABG pO2 77 L Sodium Chloride 109.1 H Carbon Dioxide BUN 22 H Creatinine 0.5 L Glucose POC Glucose Calcium 7.5 L Magnesium Albumin Triglycerides Ur Specific [employer] 05/28/18 05/28/18 05/28/18 17:57 18:48 22:47 Hgb MCV MCH MCHC RDW Plt Count Lymph % (Auto) [place] % (Auto) Lymph # [place] # Seg Neutrophils % Seg Neuts % (Manual) Lymphocytes % (Manual) Nucleated RBC % Seg Neutrophils # Man Lymphocytes # (Manual) D-Dimer POC ABG pH 7.195 L 7.312 L POC ABG pCO2 57.5 H POC ABG pO2 57 L 73 L Sodium Chloride Carbon Dioxide BUN Creatinine Glucose POC Glucose Calcium Magnesium Albumin Triglycerides Ur Specific [employer] > 1.030 H 05/30/18 05/30/18 05/31/18 06:10 10:42 04:23 Hgb MCV MCH MCHC RDW Plt Count Lymph % (Auto) [place] % (Auto) Lymph # [place] # Seg Neutrophils % Seg Neuts % (Manual) Lymphocytes % (Manual) Nucleated RBC % Seg Neutrophils # Man Lymphocytes # (Manual) D-Dimer POC ABG pH 7.214 L 7.253 L POC ABG pCO2 64.5 H 56.4 H POC ABG pO2 78 L 74 L Sodium Chloride Carbon Dioxide BUN Creatinine Glucose POC Glucose Calcium Magnesium Albumin Triglycerides Ur Specific [employer] 05/31/18 05/31/18 05/31/18 06:30 08:50 08:50 Hgb 9.3 L MCV 78 L MCH 23 L MCHC 29 L RDW 19.8 H Plt Count 131 L Lymph % (Auto) [place] % (Auto) Lymph # [place] # Seg Neutrophils % Seg Neuts % (Manual) 98.0 H Lymphocytes % (Manual) 2.0 L Nucleated RBC % 1.0 H Seg Neutrophils # Man 8.4 H Lymphocytes # (Manual) 0.2 L D-Dimer POC ABG pH POC ABG pCO2 POC ABG pO2 Sodium 153 H D Chloride 117.4 H Carbon Dioxide BUN 18 H Creatinine 0.4 L Glucose 159 H POC Glucose 146 H Calcium 8.3 L Magnesium Albumin Triglycerides Ur Specific [employer] 06/01/18 06/01/18 06/01/18 00:11 03:32 05:50 Hgb 9.8 L MCV 77 L MCH 23 L MCHC 29 L RDW 20.1 H Plt Count 122 L Lymph % (Auto) [place] % (Auto) Lymph # [place] # Seg Neutrophils % Seg Neuts % (Manual) Lymphocytes % (Manual) Nucleated RBC % Seg Neutrophils # Man Lymphocytes # (Manual) D-Dimer POC ABG pH 7.465 H POC ABG pCO2 POC ABG pO2 Sodium Chloride Carbon Dioxide BUN Creatinine Glucose POC Glucose 149 H Calcium Magnesium Albumin Triglycerides Ur Specific [employer] 06/01/18 06/01/18 06/01/18 05:50 05:50 05:51 Hgb MCV MCH MCHC RDW Plt Count Lymph % (Auto) [place] % (Auto) Lymph # [place] # Seg Neutrophils % Seg Neuts % (Manual) Lymphocytes % (Manual) Nucleated RBC % Seg Neutrophils # Man Lymphocytes # (Manual) D-Dimer POC ABG pH POC ABG pCO2 POC ABG pO2 Sodium 152 H Chloride 113.7 H Carbon Dioxide BUN 18 H Creatinine 0.3 L Glucose 146 H POC Glucose 146 H Calcium Magnesium 2.40 H Albumin Triglycerides 214 H Ur Specific [employer] 06/01/18 06/01/18 06/01/18 10:40 11:52 12:06 Hgb MCV MCH MCHC RDW Plt Count Lymph % (Auto) [place] % (Auto) Lymph # [place] # Seg Neutrophils % Seg Neuts % (Manual) Lymphocytes % (Manual) Nucleated RBC % Seg Neutrophils # Man Lymphocytes # (Manual) D-Dimer POC ABG pH POC ABG pCO2 48.4 H POC ABG pO2 Sodium Chloride Carbon Dioxide BUN Creatinine Glucose POC Glucose 147 H 138 H Calcium Magnesium Albumin Triglycerides Ur Specific [employer] 06/01/18 06/02/18 06/02/18 18:08 00:39 04:11 Hgb MCV MCH MCHC RDW Plt Count Lymph % (Auto) [place] % (Auto) Lymph # [place] # Seg Neutrophils % Seg Neuts % (Manual) Lymphocytes % (Manual) Nucleated RBC % Seg Neutrophils # Man Lymphocytes # (Manual) D-Dimer POC ABG pH POC ABG pCO2 50.3 H POC ABG pO2 72 L Sodium Chloride Carbon Dioxide BUN Creatinine Glucose POC Glucose 156 H 156 H Calcium Magnesium Albumin Triglycerides Ur Specific [employer] 06/02/18 06/02/18 06/02/18 05:16 07:47 07:47 Hgb 10.0 L MCV 77 L MCH 23 L MCHC 29 L RDW 18.8 H Plt Count 103 L Lymph % (Auto) [place] % (Auto) Lymph # [place] # Seg Neutrophils % Seg Neuts % (Manual) Lymphocytes % (Manual) Nucleated RBC % Seg Neutrophils # Man Lymphocytes # (Manual) D-Dimer POC ABG pH POC ABG pCO2 POC ABG pO2 Sodium 148 H Chloride 109.4 H Carbon Dioxide 32 H BUN 21 H Creatinine 0.3 L Glucose 137 H POC Glucose 150 H Calcium Magnesium Albumin Triglycerides Ur Specific [employer] 06/02/18 06/02/18 06/02/18 11:46 17:51 19:58 Hgb MCV MCH MCHC RDW Plt Count Lymph % (Auto) [place] % (Auto) Lymph # [place] # Seg Neutrophils % Seg Neuts % (Manual) Lymphocytes % (Manual) Nucleated RBC % Seg Neutrophils # Man Lymphocytes # (Manual) D-Dimer POC ABG pH POC ABG pCO2 POC ABG pO2 Sodium Chloride Carbon Dioxide BUN Creatinine Glucose POC Glucose 150 H 135 H 131 H Calcium Magnesium Albumin Triglycerides Ur Specific [employer] 06/03/18 06/03/18 06/03/18 04:28 04:59 04:59 Hgb MCV 76 L MCH 23 L MCHC RDW 19.1 H Plt Count 99 L Lymph % (Auto) [place] % (Auto) Lymph # [place] # Seg Neutrophils % Seg Neuts % (Manual) Lymphocytes % (Manual) Nucleated RBC % Seg Neutrophils # Man Lymphocytes # (Manual) D-Dimer POC ABG pH POC ABG pCO2 50.4 H POC ABG pO2 65 L Sodium Chloride Carbon Dioxide BUN 23 H Creatinine 0.3 L Glucose 167 H POC Glucose Calcium Magnesium Albumin Triglycerides Ur Specific [employer] 06/03/18 06/03/18 06/03/18 05:17 12:20 17:28 Hgb MCV MCH MCHC RDW Plt Count Lymph % (Auto) [place] % (Auto) Lymph # [place] # Seg Neutrophils % Seg Neuts % (Manual) Lymphocytes % (Manual) Nucleated RBC % Seg Neutrophils # Man Lymphocytes # (Manual) D-Dimer POC ABG pH POC ABG pCO2 POC ABG pO2 Sodium Chloride Carbon Dioxide BUN Creatinine Glucose POC Glucose 153 H 155 H 135 H Calcium Magnesium Albumin Triglycerides Ur Specific [employer] 06/03/18 06/04/18 06/04/18 23:23 04:37 05:15 Hgb MCV MCH MCHC RDW Plt Count Lymph % (Auto) [place] % (Auto) Lymph # [place] # Seg Neutrophils % Seg Neuts % (Manual) Lymphocytes % (Manual) Nucleated RBC % Seg Neutrophils # Man Lymphocytes # (Manual) D-Dimer POC ABG pH POC ABG pCO2 51.3 H POC ABG pO2 79 L Sodium Chloride Carbon Dioxide BUN Creatinine Glucose POC Glucose 145 H 140 H Calcium Magnesium Albumin Triglycerides Ur Specific [employer] 06/04/18 06/04/18 06/05/18 11:47 17:22 01:13 Hgb MCV MCH MCHC RDW Plt Count Lymph % (Auto) [place] % (Auto) Lymph # [place] # Seg Neutrophils % Seg Neuts % (Manual) Lymphocytes % (Manual) Nucleated RBC % Seg Neutrophils # Man Lymphocytes # (Manual) D-Dimer POC ABG pH POC ABG pCO2 POC ABG pO2 Sodium Chloride Carbon Dioxide BUN Creatinine Glucose POC Glucose 158 H 131 H 137 H Calcium Magnesium Albumin Triglycerides Ur Specific [employer] 06/05/18 06/05/18 06/05/18 04:10 06:33 11:41 Hgb MCV MCH MCHC RDW Plt Count Lymph % (Auto) [place] % (Auto) Lymph # [place] # Seg Neutrophils % Seg Neuts % (Manual) Lymphocytes % (Manual) Nucleated RBC % Seg Neutrophils # Man Lymphocytes # (Manual) D-Dimer POC ABG pH POC ABG pCO2 56.3 H POC ABG pO2 61 L Sodium Chloride Carbon Dioxide BUN Creatinine Glucose POC Glucose 136 H 150 H Calcium Magnesium Albumin Triglycerides Ur Specific [employer] 06/05/18 06/05/18 06/05/18 15:27 19:49 22:44 Hgb MCV MCH MCHC RDW Plt Count Lymph % (Auto) [place] % (Auto) Lymph # [place] # Seg Neutrophils % Seg Neuts % (Manual) Lymphocytes % (Manual) Nucleated RBC % Seg Neutrophils # Man Lymphocytes # (Manual) D-Dimer POC ABG pH POC ABG pCO2 POC ABG pO2 Sodium Chloride Carbon Dioxide 36 H D BUN 25 H Creatinine 0.4 L Glucose 130 H POC Glucose 125 H 137 H Calcium Magnesium Albumin Triglycerides Ur [employer] Allied health notes reviewed: nursing
[2018-06-06] MEDS: SODIUM CHLORIDE FLUSH SYRINGE 10 ML IV SCH ×3 (10:00→22:00)
[2018-06-06] MEDS: PREVACID SOLUTAB FEEDTUBE SCH (10:00)
[2018-06-06] MEDS: NORVASC PO SCH (10:00)
[2018-06-06] MEDS: LEVAQUIN 750MG/150ML 750 MG/150 ML BAG IV SCH (10:00)
[2018-06-06] MEDS: ZESTRIL PO SCH (10:00)
--- NOTE | 2018-06-06 10:23 | Progress Note ---
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 According to chart, pt has not been using her O2 and started hallucinating. She was intubated in the ED. She was also hypotensive in the ED and started on Vasopressor/Levophed * CTA chest IMPRESSION: 1. Study degraded by artifact created by retained hardware in the thoracic spine and by motion artifact. 2. No evidence of central pulmonary artery emboli. However, segmental pulmonary artery emboli could be missed or overcalled due to significant artifact. 3. Complete consolidation left lower lobe with air bronchograms and volume loss consistent with atelectasis. There appears to be opacification of a portion of the left lower lobe bronchus. 4. Tip of the endotracheal tube projected in satisfactory position. 5. Cardiomegaly. 6. IVC filter. 7. Prominent kyphosis of the thoracic spine with extensive instrumentation with retained hardware. * Abdominal 1 view XRAY IMPRESSION: Nasogastric tube is terminating in the stomach. Mild degree left pleural effusion * pCXR FINDINGS: Heart: Prominent cardiac silhouette. Mediastinum/Vessels: Prominent central vessels. Lungs/Pleural space: Left lung base airspace consolidation. Bony thorax: No acute osseous abnormality. Life support devices: The endotracheal tube tip is obscured by hardware in the thoracic spine, but likely projects approximately 4 cm superior to the carlos manuel. IMPRESSION: Prominent cardiac silhouette. Left lung base airspace consolidatio n -AMS with Acute encephalopathy, prior records show a long history of similar presentations and PCP toxicity: I ordered UDS -Acute on chronic combined respiratory failure: daily weaning attempt, consulted Technical Administrative Assistant/Flame Channeler -Severe AE COPD: treat with iv steriods, abx, nebs around the clock -Hypotension due to circulatory shock possible septic shock from LLL pneumonia: off Vasopressor -Septic Shock suspected LLL Pseudomonas/E.coli pneumonia: treat with ivf, abx, ID following, trachea aspirate growing Gram negative==> PSA resistant to Aztreonam/zosyn/cefepime/fortaz but sensitive to cipro/gent/levaquin/tobramycin; E. coli has not resistant, changed antibiotics to Levaquin and Gentamicin on Friday. Gentamincine stopped. OFF Vasopressor since Friday. Sputum culture positive for Pseudomonas/Escherichia coli -DVT prophylaxis: sq Lovenox -Acute thrombocytopenia: Lovenox discontinued, awaiting HIT -Disposition: continue Critical care, trying to wean off pressors and vent but still febrile full code History Interval history: Patient seen and examined remained confused, Extubated. on BIPAP Hospitalist Physical - Physical exam Narrative exam: General appearance: Present: no acute distress, other - EENT Eyes: Present: PERRL ENT: clear oral mucosa, other (NGT noted) - Neck Neck: Present: supple - Respiratory Respiratory effort: normal Respiratory: bilateral: CTA - Cardiovascular Rhythm: regular (with tachycardia) Heart Sounds: Present: S1 & S2 - Extremities Extremities: No edema - Abdominal General gastrointestinal: soft, non-tender, non-distended, normal bowel sounds - Integumentary Integumentary: Present: clear, warm, dry - Neurologic Neurologic: other still confused - Constitutional Vitals: Temp Pulse Resp BP Pulse Ox 98.4 F 121 H 20 149/95 93 06/06/18 08:00 06/06/18 08:45 06/06/18 08:45 06/06/18 07:20 06/06/18 07:20 General appearance: Present: no acute distress, other (pt is intubated.) Results - Labs CBC & Chem 7: 06/03/18 04:59 06/05/18 15:27 Labs: Laboratory Last Values WBC 8.3 K/mm3 (4.5-11.0) 06/03/18 04:59 RBC 4.39 M/mm3 (3.65-5.03) 06/03/18 04:59 Hgb 10.1 gm/dl (10.1-14.3) 06/03/18 04:59 Hct 33.3 % (30.3-42.9) 06/03/18 04:59 MCV 76 fl (79-97) L 06/03/18 04:59 MCH 23 pg (28-32) L 06/03/18 04:59 MCHC 30 % (30-34) 06/03/18 04:59 RDW 19.1 % (13.2-15.2) H 06/03/18 04:59 Plt Count 99 K/mm3 (140-440) L 06/03/18 04:59 Lymph % (Auto) 8.5 % (13.4-35.0) L 05/28/18 13:13 Emmet % (Auto) 11.3 % (0.0-7.3) H 05/28/18 13:13 Eos % (Auto) 0.0 % (0.0-4.3) 05/28/18 13:13 Baso % (Auto) 0.4 % (0.0-1.8) 05/28/18 13:13 Lymph # 0.8 K/mm3 (1.2-5.4) L 05/28/18 13:13 Emmet # 1.1 K/mm3 (0.0-0.8) H 05/28/18 13:13 Eos # 0.0 K/mm3 (0.0-0.4) 05/28/18 13:13 Baso # 0.0 K/mm3 (0.0-0.1) 05/28/18 13:13 Add Manual Diff Complete 05/31/18 08:50 Total Counted 100 05/31/18 08:50 Seg Neutrophils % Order Builder Loader 05/31/18 08:50 Seg Neuts % (Manual) 98.0 % (40.0-70.0) H 05/31/18 08:50 Band Neutrophils % 0 % 05/31/18 08:50 Lymphocytes % (Manual) 2.0 % (13.4-35.0) L 05/31/18 08:50 Reactive Lymphs % (Man) 0 % 05/31/18 08:50 Monocytes % (Manual) 0 % (0.0-7.3) 05/31/18 08:50 Eosinophils % (Manual) 0 % (0.0-4.3) 05/31/18 08:50 Basophils % (Manual) 0 % (0.0-1.8) 05/31/18 08:50 Metamyelocytes % 0 % 05/31/18 08:50 Myelocytes % 0 % 05/31/18 08:50 Promyelocytes % 0 % 05/31/18 08:50 Blast Cells % 0 % 05/31/18 08:50 Nucleated RBC % 1.0 % (0.0-0.9) H 05/31/18 08:50 Seg Neutrophils # 7.7 K/mm3 (1.8-7.7) 05/28/18 13:13 Seg Neutrophils # Man 8.4 K/mm3 (1.8-7.7) H 05/31/18 08:50 Band Neutrophils # 0.0 K/mm3 05/31/18 08:50 Lymphocytes # (Manual) 0.2 K/mm3 (1.2-5.4) L 05/31/18 08:50 Abs React Lymphs (Man) 0.0 K/mm3 05/31/18 08:50 Monocytes # (Manual) 0.0 K/mm3 (0.0-0.8) 05/31/18 08:50 Eosinophils # (Manual) 0.0 K/mm3 (0.0-0.4) 05/31/18 08:50 Basophils # (Manual) 0.0 K/mm3 (0.0-0.1) 05/31/18 08:50 Metamyelocytes # 0.0 K/mm3 05/31/18 08:50 Myelocytes # 0.0 K/mm3 05/31/18 08:50 Promyelocytes # 0.0 K/mm3 05/31/18 08:50 Blast Cells # 0.0 K/mm3 05/31/18 08:50 WBC Morphology Not Reportable 05/31/18 08:50 Hypersegmented Neuts Not Reportable 05/31/18 08:50 Hyposegmented Neuts Not Reportable 05/31/18 08:50 Hypogranular Neuts Not Reportable 05/31/18 08:50 Smudge Cells Not Reportable 05/31/18 08:50 Toxic Granulation Not Reportable 05/31/18 08:50 Toxic Vacuolation Not Reportable 05/31/18 08:50 Dohle Bodies Not Reportable 05/31/18 08:50 Pelger-Huet Anomaly Not Reportable 05/31/18 08:50 Neha Rods Not Reportable 05/31/18 08:50 Platelet Estimate Consistent w auto 05/31/18 08:50 Clumped Platelets Not Reportable 05/31/18 08:50 Plt Clumps, EDTA Not Reportable 05/31/18 08:50 Large Platelets Not Reportable 05/31/18 08:50 Giant Platelets Not Reportable 05/31/18 08:50 Platelet Satelliting Not Reportable 05/31/18 08:50 Plt Morphology Comment Not Reportable 05/31/18 08:50 RBC Morphology Not Reportable 05/31/18 08:50 Dimorphic RBCs Not Reportable 05/31/18 08:50 Polychromasia Few 05/31/18 08:50 Hypochromasia Few 05/31/18 08:50 Poikilocytosis Not Reportable 05/31/18 08:50 Anisocytosis Not Reportable 05/31/18 08:50 Microcytosis Not Reportable 05/31/18 08:50 Macrocytosis Not Reportable 05/31/18 08:50 Spherocytes Not Reportable 05/31/18 08:50 Pappenheimer Bodies Not Reportable 05/31/18 08:50 Sickle Cells Not Reportable 05/31/18 08:50 Target Cells Not Reportable 05/31/18 08:50 Tear Drop Cells Not Reportable 05/31/18 08:50 Ovalocytes Not Reportable 05/31/18 08:50 Stomatocytes Rare 05/31/18 08:50 Helmet Cells Not Reportable 05/31/18 08:50 [place] Bodies Not Reportable 05/31/18 08:50 [place] Rings Not Reportable 05/31/18 08:50 [place] Cells Not Reportable 05/31/18 08:50 Bite Cells Not Reportable 05/31/18 08:50 Crenated Cell Not Reportable 05/31/18 08:50 Elliptocytes Not Reportable 05/31/18 08:50 Acanthocytes (Spur) Not Reportable 05/31/18 08:50 Rouleaux Not Reportable 05/31/18 08:50 Hemoglobin C Crystals Not Reportable 05/31/18 08:50 Schistocytes Not Reportable 05/31/18 08:50 Malaria parasites Not Reportable 05/31/18 08:50 Hernan Bodies Not Reportable 05/31/18 08:50 Hem Pathologist Commnt No 05/31/18 08:50 D-Dimer 1062.49 ng/mlDDU (0-234) H 05/28/18 13:13 POC ABG pH 7.384 (7.35-7.45) 06/05/18 04:10 POC ABG pCO2 56.3 (35-45) H 06/05/18 04:10 POC ABG pO2 61 (80-105) L 06/05/18 04:10 POC ABG HCO3 33.6 (22-26 mml/L) 06/05/18 04:10 POC ABG Total CO2 35 (23-27mmol/L) 06/05/18 04:10 POC ABG O2 Sat 90 06/05/18 04:10 POC ABG Base Excess 9 ((-2) - (+3)mmol/L) 06/05/18 04:10 FiO2 45 % 06/05/18 04:10 Sodium 144 mmol/L (137-145) 06/05/18 15:27 Potassium 4.3 mmol/L (3.6-5.0) 06/05/18 15:27 Chloride 99.9 mmol/L (98-107) 06/05/18 15:27 Carbon Dioxide 36 mmol/L (22-30) H D 06/05/18 15:27 Anion Gap 12 mmol/L 06/05/18 15:27 BUN 25 mg/dL (7-17) H 06/05/18 15:27 Creatinine 0.4 mg/dL (0.7-1.2) L 06/05/18 15:27 Estimated GFR > 60 ml/min 06/05/18 15:27 BUN/Creatinine Ratio 63 % 06/05/18 15:27 Glucose 130 mg/dL (65-100) H 06/05/18 15:27 POC Glucose 137 (70-105) H 06/05/18 22:44 Lactic Acid 0.90 mmol/L (0.7-2.0) 05/28/18 14:50 Calcium 9.3 mg/dL (8.4-10.2) 06/05/18 15:27 Magnesium 2.40 mg/dL (1.7-2.3) H 06/01/18 05:50 Total Bilirubin 0.30 mg/dL (0.1-1.2) 05/28/18 13:13 AST 23 units/L (5-40) 05/28/18 13:13 ALT 11 units/L (7-56) 05/28/18 13:13 Alkaline Phosphatase 96 units/L (35-129) 05/28/18 13:13 Troponin T < 0.010 ng/mL (0.00-0.029) 05/28/18 13:13 Total Protein 6.6 g/dL (6.3-8.2) 05/28/18 13:13 Albumin 3.5 g/dL (3.9-5) L 05/28/18 13:13 Albumin/Globulin Ratio 1.1 % 05/28/18 13:13 Triglycerides 214 mg/dL (2-149) H 06/01/18 05:50 Urine Color Yellow (Yellow) 05/28/18 17:57 Urine Turbidity Clear (Clear) 05/28/18 17:57 Urine pH 6.0 (5.0-7.0) 05/28/18 17:57 Ur Specific [place] > 1.030 (1.003-1.030) H 05/28/18 17:57 Urine Protein 100 mg/dl mg/dL (Negative) 05/28/18 17:57 Urine Glucose (UA) Neg mg/dL (Negative) 05/28/18 17:57 Urine Ketones 20 mg/dL (Negative) 05/28/18 17:57 Urine Blood Sm (Negative) 05/28/18 17:57 Urine Nitrite Neg (Negative) 05/28/18 17:57 Urine Bilirubin Neg (Negative) 05/28/18 17:57 Urine Urobilinogen 2.0 mg/dL (<2.0) 05/28/18 17:57 Ur Leukocyte Esterase Neg (Negative) 05/28/18 17:57 Urine WBC (Auto) 1.0 /HPF (0.0-6.0) 05/28/18 17:57 Urine RBC (Auto) 2.0 /HPF (0.0-6.0) 05/28/18 17:57 U Epithel Cells (Auto) < 1.0 /HPF (0-13.0) 05/28/18 17:57 Urine Mucus Few /HPF 05/28/18 17:57 Random Gentamicin 0.4 ug/mL (0.0-10.0) 06/01/18 05:50 Vancomycin Trough 7.2 ug/mL (5.0-20.0) 05/31/18 09:39 Urine Opiates Screen Presumptive negative 05/29/18 23:50 Urine Methadone Screen Presumptive negative 05/29/18 23:50 Ur Barbiturates Screen Presumptive negative 05/29/18 23:50 Ur Phencyclidine Scrn Presumptive negative 05/29/18 23:50 Ur Amphetamines Screen Presumptive negative 05/29/18 23:50 U Benzodiazepines Scrn Presumptive negative 05/29/18 23:50 Urine Cocaine Screen Presumptive negative 05/29/18 23:50 U Marijuana (THC) Screen Presumptive negative 05/29/18 23:50 Drugs of Abuse Note Disclamer 05/29/18 23:50 Active Medications - Current Medications Current Medications: Generic Name Dose Route Start Last Admin Trade Name Freq PRN Reason Stop Dose Admin Acetaminophen 650 mg 05/31/18 09:02 05/31/18 09:26 Tylenol FEEDTUBE 650 mg Q6H PRN Administration Non Cardiac Pain or Temp>100.5 Albuterol/Ipratropium 1 ampul 06/04/18 20:00 06/06/18 08:41 Duoneb *Not For Prn Use* IH Not Given BIDRT DOMINICK Amlodipine Besylate 10 mg 05/29/18 10:00 06/05/18 09:21 Norvasc PO 10 mg DAILY DOMINICK Administration Lipase/Protease/Amylase 1 each 05/28/18 22:[address] 10,500 Unit FEEDTUBE PRN PRN For Clogged Feeding Tube Arformoterol Tartrate 15 mcg 06/04/18 20:00 06/06/18 08:41 Brovana Nebu IH 15 mcg Q12HRT DOMINICK Administration Baclofen 10 mg 05/28/18 23:00 06/06/18 05:49 Lioresal PO Not Given BID DOMINICK Budesonide 0.5 mg 05/28/18 22:45 06/06/18 08:41 Pulmicort IH 0.5 mg Q12HRT DOMINICK Administration Buspirone HCl 5 mg 05/28/18 23:00 06/06/18 05:49 Buspar PO Not Given BID DOMINICK Fentanyl Citrate 2,000 mcg in 100 mls @ 3.969 mls/hr 05/28/18 21:00 06/05/18 08:11 Fentanyl Drip Premix IV 0 mcg/kg/hr TITR DOMINICK 0 mls/hr Titration Protocol 1 MCG/KG/HR Propofol 1,000 mg in 100 mls @ 2.526 mls/hr 05/30/18 02:07 06/02/18 07:39 Diprivan 10 Mg/Ml IV 0 mcg/kg/min TITR DOMINICK 0 mls/hr Titration Protocol 5 MCG/KG/MIN Levofloxacin/Dextrose 750 mg in 150 mls @ 100 mls/hr 05/31/18 11:00 06/05/18 10:57 Levaquin 750mg/150ml IV Infused Q24HR [facility] Infusion Protocol Insulin Human Lispro 0 unit 06/01/18 10:00 06/06/18 00:30 Humalog SUB-Q Not Given Q6HR [facility] Protocol Lansoprazole 30 mg 05/30/18 10:00 06/05/18 09:21 Prevacid Solutab FEEDTUBE 30 mg QDAY DOMINICK Administration Lisinopril 10 mg 05/29/18 10:00 06/05/18 09:21 Zestril PO 10 mg QDAY DOMINICK Administration Lorazepam 2 mg 05/31/18 08:39 06/06/18 07:47 Ativan IV 2 mg Q1H PRN Administration CIWA-Ar 8-15 Lorazepam 4 mg 05/31/18 08:39 06/06/18 05:00 Ativan IV 4 mg Q1H PRN Administration CIWA-Ar 16-25 Lorazepam 4 mg 05/31/18 08:39 06/05/18 20:00 Ativan IV 4 mg Q15MIN PRN Administration CIWA-Ar >25 Methylprednisolone Sodium Succinate 60 mg 05/31/18 14:00 06/05/18 22:00 Solu-Medrol IV 60 mg Q8HR DOMINICK Administration Metoprolol Tartrate 100 mg 05/31/18 10:00 06/06/18 05:49 Lopressor PO Not Given BID [facility] Metoprolol Tartrate 2.5 mg 06/06/18 12:00 Lopressor IV Q6HR [facility] Quetiapine Fumarate 300 mg 06/04/18 22:00 06/06/18 05:50 Seroquel PO Not Given BID DOMINICK Simple Syrup 15 ml 05/28/18 22:45 Simple Syrup FEEDTUBE PRN PRN Hypoglycemia Simple Syrup 30 ml 05/28/18 22:45 Simple Syrup FEEDTUBE PRN PRN Hypoglycemia Sodium Bicarbonate 325 mg 05/28/18 22:45 Sodium Bicarbonate FEEDTUBE PRN PRN For Clogged Feeding Tube Sodium Chloride 10 ml 05/29/18 10:00 06/05/18 10:46 Sodium Chloride Flush Syringe 10 Ml IV 10 ml BID DOMINICK Administration Sodium Chloride 10 ml 05/28/18 22:45 06/06/18 05:50 Sodium Chloride Flush Syringe 10 Ml IV 10 ml PRN PRN Administration LINE FLUSH Nutrition/Malnutrition Assess - Dietary Evaluation Nutrition/Malnutrition Findings: Nutrition Notes Start: 05/29/18 09:32 Freq: Status: Active Protocol: Document 06/05/18 10:49 TW (Rec: 06/05/18 11:02 TW [id number]) Co-Sign 06/05/18 10:49 LP Nutrition Notes Initial or Follow up Reassessment Current Diagnosis COPD,Hypertension,Respiratory Failure Other Pertinent Diagnosis COPD exacerbation, End-stage lung Dz Current Diet Vital High Protein at 45mL/hr Labs/Tests reviewed Pertinent Medications Propofol at 5.052mL/hr ( provides 133 lipid kcal) Solumedrol Levophed gtt Lasix Height 5 ft Weight 93.5 kg [place] Body Weight (kg) 45.45 BMI 40.2 Weight Status Obese Subjective/Other Information F/U for stable TF. Noted TF not running since 8:00 am. TF will continue to be held for extubation. TF will continue to goal after procedure. As discussed in interdisciplinary rounds, pt jose have diet advanced if okayed by INFORMATION TECHNOLOGY ACCOUNT MANAGER. Burn Absent Trauma Absent #1 Nutrition Diagnosis Inadequate oral intake Diagnosis Progress(for reassessment Continues documentation) Is patient on ventilator? Yes Is Patient Ambulatory and/or Out of Bed No REE-([place]-confined to bed) 1716.444 Kcal/Kg value to use for calculation 14 Approximate Energy Requirements Using 1309 kcal/Kg Calculation Used for Recommendations Kcal/kg Additional Notes Pro needs 2g/kg IBW: 91g/day Fluid needs 1ml/kcal Nutrition Intervention Change Diet Order: Advance when medically feasible Nutrition Support: Continue Vital High Protein at 50mL/hr. Flush for hypernatermia per MD at this time until hypernatermia resolved then 50mL q4h Kcal 1,200 Protein (gm) 105 Fluid (mL) 1,003 Goal #1 TF tolerance Goal #2 TF to meet 80-100% energy and protein needs Goal #3 diet advancement Anticipated Discharge Needs: Unable to identify at this time Follow-Up By: 06/09/18 Additional Comments F/U: stable TF post-extubation / possible diet advancement - Attestation Statement I have reviewed and agreed w/ Malnutrition eval & tx plan: Yes
[2018-06-06] MEDS: LOPRESSOR IV SCH ×2 (11:02→17:59)
[2018-06-07] MEDS: FREE WATER PO SCH ×6 (04:00→22:00)
[2018-06-07] MEDS: HumaLOG SUB-Q SCH ×4 (06:00→18:00)
[2018-06-07] MEDS: LOPRESSOR IV SCH ×5 (06:00→23:45)
[2018-06-07] MEDS: BUSPAR PO SCH ×3 (06:44→22:00)
[2018-06-07] MEDS ORDERED: SOLU-Medrol IV SCH (08:58)
--- NOTE | 2018-06-07 09:00 | Progress Note ---
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 According to chart, pt has not been using her O2 and started hallucinating. She was intubated in the ED. She was also hypotensive in the ED and started on Vasopressor/Levophed * CTA chest IMPRESSION: 1. Study degraded by artifact created by retained hardware in the thoracic spine and by motion artifact. 2. No evidence of central pulmonary artery emboli. However, segmental pulmonary artery emboli could be missed or overcalled due to significant artifact. 3. Complete consolidation left lower lobe with air bronchograms and volume loss consistent with atelectasis. There appears to be opacification of a portion of the left lower lobe bronchus. 4. Tip of the endotracheal tube projected in satisfactory position. 5. Cardiomegaly. 6. IVC filter. 7. Prominent kyphosis of the thoracic spine with extensive instrumentation with retained hardware. * Abdominal 1 view XRAY IMPRESSION: Nasogastric tube is terminating in the stomach. Mild degree left pleural effusion * pCXR FINDINGS: Heart: Prominent cardiac silhouette. Mediastinum/Vessels: Prominent central vessels. Lungs/Pleural space: Left lung base airspace consolidation. Bony thorax: No acute osseous abnormality. Life support devices: The endotracheal tube tip is obscured by hardware in the thoracic spine, but likely projects approximately 4 cm superior to the carlos manuel. IMPRESSION: Prominent cardiac silhouette. 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 coli has not resistant, changed antibiotics to Levaquin and Gentamicin on Friday. Gentamincine stopped. OFF Vasopressor since Friday. Sputum culture positive for Pseudomonas/Escherichia coli -DVT prophylaxis: sq Lovenox -Acute thrombocytopenia: Lovenox discontinued, awaiting HIT -Disposition: continue Critcal care, trying to wean off pressors and vent but still febrile full code Transfer to [facility] History Interval history: Patient seen and examined remained confused, Extubated. STILL on BIPAP Hospitalist Physical - Physical exam Narrative exam: General appearance: Present: no acute distress, other - EENT Eyes: Present: PERRL ENT: clear oral mucosa, other (NGT noted) - Neck Neck: Present: supple - Respiratory Respiratory effort: normal Respiratory: bilateral: CTA - Cardiovascular Rhythm: regular (with tachycardia) Heart Sounds: Present: S1 & S2 - Extremities Extremities: No edema - Abdominal General gastrointestinal: soft, non-tender, non-distended, normal bowel sounds - Integumentary Integumentary: Present: clear, warm, dry - Neurologic Neurologic: other still confused - Constitutional Vitals: Temp Pulse Resp BP Pulse Ox 98.6 F 82 30 H 148/52 96 06/06/18 16:00 06/07/18 06:11 06/07/18 06:11 06/07/18 06:11 06/07/18 06:11 General appearance: Present: no acute distress, other (pt is intubated.) Results - Labs CBC & Chem 7: 06/08/18 03:37 06/08/18 03:37 Labs: Laboratory Last Values WBC 8.3 K/mm3 (4.5-11.0) 06/03/18 04:59 RBC 4.39 M/mm3 (3.65-5.03) 06/03/18 04:59 Hgb 10.1 gm/dl (10.1-14.3) 06/03/18 04:59 Hct 33.3 % (30.3-42.9) 06/03/18 04:59 MCV 76 fl (79-97) L 06/03/18 04:59 MCH 23 pg (28-32) L 06/03/18 04:59 MCHC 30 % (30-34) 06/03/18 04:59 RDW 19.1 % (13.2-15.2) H 06/03/18 04:59 Plt Count 99 K/mm3 (140-440) L 06/03/18 04:59 Lymph % (Auto) 8.5 % (13.4-35.0) L 05/28/18 13:13 [place] % (Auto) 11.3 % (0.0-7.3) H 05/28/18 13:13 Eos % (Auto) 0.0 % (0.0-4.3) 05/28/18 13:13 Baso % (Auto) 0.4 % (0.0-1.8) 05/28/18 13:13 Lymph # 0.8 K/mm3 (1.2-5.4) L 05/28/18 13:13 [place] # 1.1 K/mm3 (0.0-0.8) H 05/28/18 13:13 Eos # 0.0 K/mm3 (0.0-0.4) 05/28/18 13:13 Baso # 0.0 K/mm3 (0.0-0.1) 05/28/18 13:13 Add Manual Diff Complete 05/31/18 08:50 Total Counted 100 05/31/18 08:50 Seg Neutrophils % Jinrikisha Driver 05/31/18 08:50 Seg Neuts % (Manual) 98.0 % (40.0-70.0) H 05/31/18 08:50 Band Neutrophils % 0 % 05/31/18 08:50 Lymphocytes % (Manual) 2.0 % (13.4-35.0) L 05/31/18 08:50 Reactive Lymphs % (Man) 0 % 05/31/18 08:50 Monocytes % (Manual) 0 % (0.0-7.3) 05/31/18 08:50 Eosinophils % (Manual) 0 % (0.0-4.3) 05/31/18 08:50 Basophils % (Manual) 0 % (0.0-1.8) 05/31/18 08:50 Metamyelocytes % 0 % 05/31/18 08:50 Myelocytes % 0 % 05/31/18 08:50 Promyelocytes % 0 % 05/31/18 08:50 Blast Cells % 0 % 05/31/18 08:50 Nucleated RBC % 1.0 % (0.0-0.9) H 05/31/18 08:50 Seg Neutrophils # 7.7 K/mm3 (1.8-7.7) 05/28/18 13:13 Seg Neutrophils # Man 8.4 K/mm3 (1.8-7.7) H 05/31/18 08:50 Band Neutrophils # 0.0 K/mm3 05/31/18 08:50 Lymphocytes # (Manual) 0.2 K/mm3 (1.2-5.4) L 05/31/18 08:50 Abs React Lymphs (Man) 0.0 K/mm3 05/31/18 08:50 Monocytes # (Manual) 0.0 K/mm3 (0.0-0.8) 05/31/18 08:50 Eosinophils # (Manual) 0.0 K/mm3 (0.0-0.4) 05/31/18 08:50 Basophils # (Manual) 0.0 K/mm3 (0.0-0.1) 05/31/18 08:50 Metamyelocytes # 0.0 K/mm3 05/31/18 08:50 Myelocytes # 0.0 K/mm3 05/31/18 08:50 Promyelocytes # 0.0 K/mm3 05/31/18 08:50 Blast Cells # 0.0 K/mm3 05/31/18 08:50 WBC Morphology Not Reportable 05/31/18 08:50 Hypersegmented Neuts Not Reportable 05/31/18 08:50 Hyposegmented Neuts Not Reportable 05/31/18 08:50 Hypogranular Neuts Not Reportable 05/31/18 08:50 Smudge Cells Not Reportable 05/31/18 08:50 Toxic Granulation Not Reportable 05/31/18 08:50 Toxic Vacuolation Not Reportable 05/31/18 08:50 Dohle Bodies Not Reportable 05/31/18 08:50 Pelger-Huet Anomaly Not Reportable 05/31/18 08:50 Neha Rods Not Reportable 05/31/18 08:50 Platelet Estimate Consistent w auto 05/31/18 08:50 Clumped Platelets Not Reportable 05/31/18 08:50 Plt Clumps, EDTA Not Reportable 05/31/18 08:50 Large Platelets Not Reportable 05/31/18 08:50 Giant Platelets Not Reportable 05/31/18 08:50 Platelet Satelliting Not Reportable 05/31/18 08:50 Plt Morphology Comment Not Reportable 05/31/18 08:50 RBC Morphology Not Reportable 05/31/18 08:50 Dimorphic RBCs Not Reportable 05/31/18 08:50 Polychromasia Few 05/31/18 08:50 Hypochromasia Few 05/31/18 08:50 Poikilocytosis Not Reportable 05/31/18 08:50 Anisocytosis Not Reportable 05/31/18 08:50 Microcytosis Not Reportable 05/31/18 08:50 Macrocytosis Not Reportable 05/31/18 08:50 Spherocytes Not Reportable 05/31/18 08:50 Pappenheimer Bodies Not Reportable 05/31/18 08:50 Sickle Cells Not Reportable 05/31/18 08:50 Target Cells Not Reportable 05/31/18 08:50 Tear Drop Cells Not Reportable 05/31/18 08:50 Ovalocytes Not Reportable 05/31/18 08:50 Stomatocytes Rare 05/31/18 08:50 Helmet Cells Not Reportable 05/31/18 08:50 [place] Bodies Not Reportable 05/31/18 08:50 [place] Rings Not Reportable 05/31/18 08:50 Damien Cells Not Reportable 05/31/18 08:50 Bite Cells Not Reportable 05/31/18 08:50 Crenated Cell Not Reportable 05/31/18 08:50 Elliptocytes Not Reportable 05/31/18 08:50 Acanthocytes (Spur) Not Reportable 05/31/18 08:50 Rouleaux Not Reportable 05/31/18 08:50 Hemoglobin C Crystals Not Reportable 05/31/18 08:50 Schistocytes Not Reportable 05/31/18 08:50 Malaria parasites Not Reportable 05/31/18 08:50 Hernan Bodies Not Reportable 05/31/18 08:50 Hem Pathologist Commnt No 05/31/18 08:50 D-Dimer 1062.49 ng/mlDDU (0-234) H 05/28/18 13:13 POC ABG pH 7.384 (7.35-7.45) 06/05/18 04:10 POC ABG pCO2 56.3 (35-45) H 06/05/18 04:10 POC ABG pO2 61 (80-105) L 06/05/18 04:10 POC ABG HCO3 33.6 (22-26 mml/L) 06/05/18 04:10 POC ABG Total CO2 35 (23-27mmol/L) 06/05/18 04:10 POC ABG O2 Sat 90 06/05/18 04:10 POC ABG Base Excess 9 ((-2) - (+3)mmol/L) 06/05/18 04:10 FiO2 45 % 06/05/18 04:10 Sodium 144 mmol/L (137-145) 06/05/18 15:27 Potassium 4.3 mmol/L (3.6-5.0) 06/05/18 15:27 Chloride 99.9 mmol/L (98-107) 06/05/18 15:27 Carbon Dioxide 36 mmol/L (22-30) H D 06/05/18 15:27 Anion Gap 12 mmol/L 06/05/18 15:27 BUN 25 mg/dL (7-17) H 06/05/18 15:27 Creatinine 0.4 mg/dL (0.7-1.2) L 06/05/18 15:27 Estimated GFR > 60 ml/min 06/05/18 15:27 BUN/Creatinine Ratio 63 % 06/05/18 15:27 Glucose 130 mg/dL (65-100) H 06/05/18 15:27 POC Glucose 91 (70-105) 06/06/18 17:59 Lactic Acid 0.90 mmol/L (0.7-2.0) 05/28/18 14:50 Calcium 9.3 mg/dL (8.4-10.2) 06/05/18 15:27 Magnesium 2.40 mg/dL (1.7-2.3) H 06/01/18 05:50 Total Bilirubin 0.30 mg/dL (0.1-1.2) 05/28/18 13:13 AST 23 units/L (5-40) 05/28/18 13:13 ALT 11 units/L (7-56) 05/28/18 13:13 Alkaline Phosphatase 96 units/L (35-129) 05/28/18 13:13 Troponin T < 0.010 ng/mL (0.00-0.029) 05/28/18 13:13 Total Protein 6.6 g/dL (6.3-8.2) 05/28/18 13:13 Albumin 3.5 g/dL (3.9-5) L 05/28/18 13:13 Albumin/Globulin Ratio 1.1 % 05/28/18 13:13 Triglycerides 214 mg/dL (2-149) H 06/01/18 05:50 Urine Color Yellow (Yellow) 05/28/18 17:57 Urine Turbidity Clear (Clear) 05/28/18 17:57 Urine pH 6.0 (5.0-7.0) 05/28/18 17:57 Ur Specific [place] > 1.030 (1.003-1.030) H 05/28/18 17:57 Urine Protein 100 mg/dl mg/dL (Negative) 05/28/18 17:57 Urine Glucose (UA) Neg mg/dL (Negative) 05/28/18 17:57 Urine Ketones 20 mg/dL (Negative) 05/28/18 17:57 Urine Blood Sm (Negative) 05/28/18 17:57 Urine Nitrite Neg (Negative) 05/28/18 17:57 Urine Bilirubin Neg (Negative) 05/28/18 17:57 Urine Urobilinogen 2.0 mg/dL (<2.0) 05/28/18 17:57 Ur Leukocyte Esterase Neg (Negative) 05/28/18 17:57 Urine WBC (Auto) 1.0 /HPF (0.0-6.0) 05/28/18 17:57 Urine RBC (Auto) 2.0 /HPF (0.0-6.0) 05/28/18 17:57 U Epithel Cells (Auto) < 1.0 /HPF (0-13.0) 05/28/18 17:57 Urine Mucus Few /HPF 05/28/18 17:57 Random Gentamicin 0.4 ug/mL (0.0-10.0) 06/01/18 05:50 Vancomycin Trough 7.2 ug/mL (5.0-20.0) 05/31/18 09:39 Urine Opiates Screen Presumptive negative 05/29/18 23:50 Urine Methadone Screen Presumptive negative 05/29/18 23:50 Ur Barbiturates Screen Presumptive negative 05/29/18 23:50 Ur Phencyclidine Scrn Presumptive negative 05/29/18 23:50 Ur Amphetamines Screen Presumptive negative 05/29/18 23:50 U Benzodiazepines Scrn Presumptive negative 05/29/18 23:50 Urine Cocaine Screen Presumptive negative 05/29/18 23:50 U Marijuana (THC) Screen Presumptive negative 05/29/18 23:50 Drugs of Abuse Note Disclamer 05/29/18 23:50 Active Medications - Current Medications Current Medications: Generic Name Dose Route Start Last Admin Trade Name Freq PRN Reason Stop Dose Admin Acetaminophen 650 mg 05/31/18 09:02 05/31/18 09:26 Tylenol FEEDTUBE 650 mg Q6H PRN Administration Non Cardiac Pain or Temp>100.5 Albuterol/Ipratropium 1 ampul 06/04/18 20:00 06/06/18 20:05 Duoneb *Not For Prn Use* IH 1 ampul BIDRT DOMINICK Administration Amlodipine Besylate 10 mg 05/29/18 10:00 06/06/18 10:00 Norvasc PO Not Given DAILY DOMINICK Lipase/Protease/Amylase 1 each 05/28/18 22:45 Pancreaze 10,500 Unit FEEDTUBE PRN PRN For Clogged Feeding Tube Arformoterol Tartrate 15 mcg 06/04/18 20:00 06/06/18 20:05 Brovana Nebu IH 15 mcg Q12HRT DOMINICK Administration Baclofen 10 mg 05/28/18 23:00 06/06/18 22:00 Lioresal PO 10 mg BID DOMINICK Administration Budesonide 0.5 mg 05/28/18 22:45 06/06/18 20:05 Pulmicort IH 0.5 mg Q12HRT DOMINICK Administration Buspirone HCl 5 mg 05/28/18 23:00 06/07/18 06:44 Buspar PO 5 mg BID DOMINICK Administration Fentanyl Citrate 2,000 mcg in 100 mls @ 3.969 mls/hr 05/28/18 21:00 06/05/18 08:11 Fentanyl Drip Premix IV 0 mcg/kg/hr TITR DOMINICK 0 mls/hr Titration Protocol 1 MCG/KG/HR Propofol 1,000 mg in 100 mls @ 2.526 mls/hr 05/30/18 02:07 06/02/18 07:39 Diprivan 10 Mg/Ml IV 0 mcg/kg/min TITR DOMINICK 0 mls/hr Titration Protocol 5 MCG/KG/MIN Levofloxacin/Dextrose 750 mg in 150 mls @ 100 mls/hr 05/31/18 11:00 06/06/18 11:30 Levaquin 750mg/150ml IV Infused Q24HR [facility] Infusion Protocol Insulin Human Lispro 0 unit 06/01/18 10:00 06/07/18 00:00 Humalog SUB-Q Not Given Q6HR [facility] Protocol Lansoprazole 30 mg 05/30/18 10:00 06/06/18 10:00 Prevacid Solutab FEEDTUBE Not Given QDAY [facility] Lisinopril 10 mg 05/29/18 10:00 06/06/18 10:00 Zestril PO Not Given QDAY [facility] Lorazepam 2 mg 05/31/18 08:39 06/06/18 17:59 Ativan IV 2 mg Q1H PRN Administration CIWA-Ar 8-15 Lorazepam 4 mg 05/31/18 08:39 06/06/18 05:00 Ativan IV 4 mg Q1H PRN Administration CIWA-Ar 16-25 Lorazepam 4 mg 05/31/18 08:39 06/05/18 20:00 Ativan IV 4 mg Q15MIN PRN Administration CIWA-Ar >25 Methylprednisolone Sodium Succinate 40 mg 06/07/18 08:58 Solu-Medrol IV Q8HR [facility] Metoprolol Tartrate 2.5 mg 06/06/18 12:00 06/07/18 06:52 Lopressor IV Not Given Q6HR [facility] Quetiapine Fumarate 300 mg 06/04/18 22:00 06/06/18 22:00 Seroquel PO 300 mg BID DOMINICK Administration Simple Syrup 15 ml 05/28/18 22:45 06/06/18 12:00 Simple Syrup FEEDTUBE 15 ml PRN PRN Administration Hypoglycemia Simple Syrup 30 ml 05/28/18 22:45 Simple Syrup FEEDTUBE PRN PRN Hypoglycemia Sodium Bicarbonate 325 mg 05/28/18 22:45 Sodium Bicarbonate FEEDTUBE PRN PRN For Clogged Feeding Tube Sodium Chloride 10 ml 05/29/18 10:00 06/06/18 22:00 Sodium Chloride Flush Syringe 10 Ml IV 10 ml BID DOMINICK Administration Sodium Chloride 10 ml 05/28/18 22:45 06/06/18 05:50 Sodium Chloride Flush Syringe 10 Ml IV 10 ml PRN PRN Administration LINE FLUSH Nutrition/Malnutrition Assess - Dietary Evaluation Nutrition/Malnutrition Findings: Nutrition Notes Start: 05/29/18 09:32 Freq: Status: Active Protocol: Document 06/05/18 10:49 TW (Rec: 06/05/18 11:02 TW [id number]) Co-Sign 06/05/18 10:49 LP Nutrition Notes Initial or Follow up Reassessment Current Diagnosis COPD,Hypertension,Respiratory Failure Other Pertinent Diagnosis COPD exacerbation, End-stage lung Dz Current Diet Vital High Protein at 45mL/hr Labs/Tests reviewed Pertinent Medications Propofol at 5.052mL/hr ( provides 133 lipid kcal) Solumedrol Levophed gtt Lasix Height 5 ft Weight 93.5 kg Wood Body Weight (kg) 45.45 BMI 40.2 Weight Status Obese Subjective/Other Information F/U for stable TF. Noted TF not running since 8:00 am. TF will continue to be held for extubation. TF will continue to goal after procedure. As discussed in interdisciplinary rounds, pt jose have diet advanced if okayed by TELETYPE ADJUSTER. Burn Absent Trauma Absent #1 Nutrition Diagnosis Inadequate oral intake Diagnosis Progress(for reassessment Continues documentation) Is patient on ventilator? Yes Is Patient Ambulatory and/or Out of Bed No REE-([facility]-confined to bed) 1716.444 Kcal/Kg value to use for calculation 14 Approximate Energy Requirements Using 1309 kcal/Kg Calculation Used for Recommendations Kcal/kg Additional Notes Pro needs 2g/kg IBW: 91g/day Fluid needs 1ml/kcal Nutrition Intervention Change Diet Order: Advance when medically feasible Nutrition Support: Continue Vital High Protein at 50mL/hr. Flush for hypernatermia per MD at this time until hypernatermia resolved then 50mL q4h Kcal 1,200 Protein (gm) 105 Fluid (mL) 1,003 Goal #1 TF tolerance Goal #2 TF to meet 80-100% energy and protein needs Goal #3 diet advancement Anticipated Discharge Needs: Unable to identify at this time Follow-Up By: 06/09/18 Additional Comments F/U: stable TF post-extubation / possible diet advancement
[2018-06-07] MEDS: SOLU-Medrol IV SCH ×3 (09:30→23:45)
[2018-06-07] MEDS: PULMICORT IH SCH ×2 (09:49→19:41)
[2018-06-07] MEDS: BROVANA NEBU IH SCH ×2 (09:49→19:41)
[2018-06-07] MEDS: DUONEB *Not for PRN Use IH SCH ×2 (09:49→19:41)
[2018-06-07] MEDS: ZESTRIL PO SCH (10:00)
[2018-06-07] MEDS: SODIUM CHLORIDE FLUSH SYRINGE 10 ML IV SCH ×2 (10:00→22:00)
[2018-06-07] MEDS: PREVACID SOLUTAB FEEDTUBE SCH (10:00)
[2018-06-07] MEDS: NORVASC PO SCH (10:00)
[2018-06-07] MEDS: LEVAQUIN 750MG/150ML 750 MG/150 ML BAG IV SCH (10:00)
[2018-06-07] MEDS: LIORESAL PO SCH ×2 (10:00→23:49)
[2018-06-07] MEDS: ATIVAN IV PRN (11:23)
--- NOTE | 2018-06-07 13:10 | Progress Note ---
Assessment and Plan Cultures: 05/28/2018 blood culture: no growth 05/28/2018 Resp culture: E. coli, Pseudomonas aeruginosa 05/31/2018 blood culture: no growth at 72 hours A/P: 58-year-old female with COPD with chronic respiratory failure on home oxygen admitted with shortness of breath and confusion: 1) Septic shock, likely secondary to left lower lobe pneumonia: requiring mechanical ventilation and ICU stay. Remains off pressors. Cultures growing resistant Pseudomonas, susceptible E.coli. On abx. 2) Acute on chronic respiratory failure with underlying COPD: extubated, on ventimask. 3) Acute encephalopathy: likely metabolic. Agitated at times, sedated. 4) Spinal hardware noted on imaging, no concern for infection at present. Recs: continue Levofloxacin Day 8 of 10, convert to PO once mental status is improved Dr. Adal quiñones tomorrow. Raul Gupta MD [facility] C: [phone] O: [phone] F: [phone] Subjective Date of service: 06/07/18 Principal diagnosis: Septic Shock (? LLL pneumonia); Ac on Ch hypoxic- hypercapnic Resp failure Interval history: Since last seen by us, she has had no fever. Extubated. Still confused. On ventimask. History and ROS limited. Objective - Exam Narrative Exam: Physical Exam: Constitutional: awake, confused, on ventimask Head, Ears, Nose: Normocephalic, atraumatic. External ears, nose normal Eyes: Conjunctivae/corneas clear. No icterus. No ptosis. Neck: Supple, no meningeal signs. Oral: ventimask Cardiovascular: S1, S2 normal. Respiratory: Good air entry, clear to auscultation bilaterally but reduced in the bases GI: Soft; bowel sounds +. No peritoneal signs Musculoskeletal: No pedal edema, no cyanosis. Skin: No rash or abscess Hem/Lymphatic: No palpable cervical or supraclavicular nodes. No lymphangitis Psych: restless Neurological: awake, confused. - Constitutional Vitals: Vital Signs Temp Pulse Resp BP Pulse Ox 97.6 F 116 H 32 H 119/75 86 06/07/18 12:00 06/07/18 12:41 06/07/18 12:41 06/07/18 12:41 06/07/18 12:41 Temperature -Last 24 Hours Temperature 97.6 F Temperature 97.6 F Temperature 98.6 F - Labs CBC & Chem 7: 06/03/18 04:59 06/05/18 15:27 Labs: Abnormal lab results 06/06/18 Range/Units 12:51 POC Glucose 66 L (70-105)
--- NOTE | 2018-06-07 14:10 | Progress Note ---
Assessment and Plan Septic Shock suspected LLL pneumonia, SOFA score >2 Acute on chronic combined( hypoxic-hypercapnic) respiratory failure s/p ETT MVS Severe AE COPD AMS with Acute encephalopathy Macrocytosis GNR pneumonia, probably secondary to aspiration Acute encephalaopthy( toxic, metabolic) History of substance abuse - schedule BIPAP qhs in short term - passed bedside dysphagia screen; will begin mechanical soft diet - continue scheduled duonebs bid - continue seroquel at 300 mg bid - continue brovana & pulmicort - PT/OT to increase ambulation - bilateral lower extremity dopplers negative for DVT - continue to wean supplemental oxygen to keep O2 sats 88-90% (remains on 40% venti-mask) - continue Lung protective strategies - Oxygen restrictive strategies acutely (target sat's 88-90% acutely) - prn ABGs/CXR at this point - complete empiric antibiotics for aspiration PNA - Follow tracheal aspirate cultures and adjust antibiotic therapy based on VITO/ID - continue Stress ulcer prophylaxis - continue VTE prophylaxis - continue systemic steroids with slow taper - resume chronic home medications per attending - continue accuchecks with glycemic control for target glucose of 140-180 mg/dL - Continue bronchodilators with pulmonary hygiene per RT - continue maintenance of sleep -wake cycle - continue mobility as tolerated by hemodynamics - Influenza and pneumonia vaccination addressed per protocol ..... OK to transfer to step-down unit ..... care plan discussed at length with RN/RT during rounds PROGNOSIS fair CONDITION: CRITICAL CODE STATUS: FULL CODE Subjective Date of service: 06/07/18 Principal diagnosis: Septic Shock (? LLL pneumonia); Ac on Ch hypoxic- hypercapnic Resp failure Interval history: Patient is seen today for: Septic Shock suspected LLL pneumonia, SOFA score > 2; Acute on chronic combined( hypoxic-hypercapnic) respiratory failure s/p ETT MVS; Severe AE COPD; AMS with Acute encephalopathy; Macrocytosis Seen and examined at bedside; 24hour events reviewed; nursing and respiratory care staff consulted; no adverse overnight events reported to me; resting peacefully in bed; she denies acute chest pains or palpitations; off vasopressors now; no N/V/F/C; remains on supplemental oxygen Objective Vital Signs - 12hr 06/07/18 06/07/18 06/07/18 02:10 02:20 02:30 Temperature Pulse Rate 86 84 82 Pulse Rate [ Anterior Bilateral] Pulse Rate [ From Monitor] Respiratory 30 H 32 H 31 H Rate Respiratory Rate [Anterior Bilateral] Blood Pressure 101/66 101/66 101/66 O2 Sat by Pulse 97 96 97 Oximetry 06/07/18 06/07/18 06/07/18 02:40 02:50 03:10 Temperature Pulse Rate 81 77 105 H Pulse Rate [ Anterior Bilateral] Pulse Rate [ From Monitor] Respiratory 31 H 30 H 34 H Rate Respiratory Rate [Anterior Bilateral] Blood Pressure 101/66 101/66 91/49 O2 Sat by Pulse 96 96 96 Oximetry 06/07/18 06/07/18 06/07/18 03:20 03:30 03:41 Temperature Pulse Rate 83 83 82 Pulse Rate [ Anterior Bilateral] Pulse Rate [ From Monitor] Respiratory 31 H 35 H 30 H Rate Respiratory Rate [Anterior Bilateral] Blood Pressure 95/47 95/47 O2 Sat by Pulse 98 100 99 Oximetry 06/07/18 06/07/18 06/07/18 03:51 04:20 04:31 Temperature Pulse Rate 81 82 84 Pulse Rate [ Anterior Bilateral] Pulse Rate [ From Monitor] Respiratory 31 H 32 H 35 H Rate Respiratory Rate [Anterior Bilateral] Blood Pressure 95/47 94/45 94/45 O2 Sat by Pulse 98 99 98 Oximetry 06/07/18 06/07/18 06/07/18 04:41 04:51 05:02 Temperature Pulse Rate 87 87 82 Pulse Rate [ Anterior Bilateral] Pulse Rate [ From Monitor] Respiratory 32 H 33 H 24 Rate Respiratory Rate [Anterior Bilateral] Blood Pressure 94/45 94/45 94/45 O2 Sat by Pulse 99 97 99 Oximetry 06/07/18 06/07/18 06/07/18 05:51 06:11 06:31 Temperature Pulse Rate 80 82 82 Pulse Rate [ Anterior Bilateral] Pulse Rate [ From Monitor] Respiratory 33 H 30 H 26 H Rate Respiratory Rate [Anterior Bilateral] Blood Pressure 102/48 148/52 83/42 O2 Sat by Pulse 96 96 98 Oximetry 06/07/18 06/07/18 06/07/18 06:41 06:51 07:00 Temperature Pulse Rate 84 93 H 93 H Pulse Rate [ Anterior Bilateral] Pulse Rate [ From Monitor] Respiratory 30 H 32 H 35 H Rate Respiratory Rate [Anterior Bilateral] Blood Pressure 83/42 148/52 103/49 O2 Sat by Pulse 97 97 95 Oximetry 06/07/18 06/07/18 06/07/18 07:11 07:21 07:31 Temperature Pulse Rate 95 H 93 H 92 H Pulse Rate [ Anterior Bilateral] Pulse Rate [ From Monitor] Respiratory 21 35 H 34 H Rate Respiratory Rate [Anterior Bilateral] Blood Pressure 103/49 103/49 103/49 O2 Sat by Pulse 94 95 92 Oximetry 06/07/18 06/07/18 06/07/18 07:41 07:51 08:00 Temperature 97.6 F Pulse Rate 94 H 90 88 Pulse Rate [ Anterior Bilateral] Pulse Rate [ From Monitor] Respiratory 29 H 36 H 35 H Rate Respiratory Rate [Anterior Bilateral] Blood Pressure 103/49 103/49 111/49 O2 Sat by Pulse 95 91 89 Oximetry 06/07/18 06/07/18 06/07/18 08:11 08:21 08:31 Temperature Pulse Rate 90 87 85 Pulse Rate [ Anterior Bilateral] Pulse Rate [ From Monitor] Respiratory 35 H 19 29 H Rate Respiratory Rate [Anterior Bilateral] Blood Pressure 111/49 111/49 111/49 O2 Sat by Pulse 90 93 93 Oximetry 06/07/18 06/07/18 06/07/18 08:41 08:51 09:00 Temperature Pulse Rate 84 82 80 Pulse Rate [ Anterior Bilateral] Pulse Rate [ From Monitor] Respiratory 32 H 32 H 30 H Rate Respiratory Rate [Anterior Bilateral] Blood Pressure 111/49 111/49 80/38 O2 Sat by Pulse 93 92 92 Oximetry 06/07/18 06/07/18 06/07/18 09:11 09:21 09:31 Temperature Pulse Rate 78 77 74 Pulse Rate [ Anterior Bilateral] Pulse Rate [ From Monitor] Respiratory 33 H 36 H 33 H Rate Respiratory Rate [Anterior Bilateral] Blood Pressure 80/38 80/38 97/44 O2 Sat by Pulse 92 94 94 Oximetry 06/07/18 06/07/18 06/07/18 09:41 09:44 09:46 Temperature Pulse Rate 86 87 Pulse Rate [ Anterior Bilateral] Pulse Rate [ From Monitor] Respiratory 28 H 24 Rate Respiratory Rate [Anterior Bilateral] Blood Pressure 97/44 97/44 O2 Sat by Pulse 96 98 96 Oximetry 06/07/18 06/07/18 06/07/18 09:49 09:51 10:00 Temperature Pulse Rate 83 95 H Pulse Rate [ 85 Anterior Bilateral] Pulse Rate [ 98 H From Monitor] Respiratory 31 H 34 H Rate Respiratory 26 H Rate [Anterior Bilateral] Blood Pressure 97/44 111/51 O2 Sat by Pulse 97 97 Oximetry 06/07/18 06/07/18 06/07/18 10:04 10:10 10:21 Temperature Pulse Rate 90 95 H Pulse Rate [ 89 Anterior Bilateral] Pulse Rate [ From Monitor] Respiratory 33 H 35 H Rate Respiratory 28 H Rate [Anterior Bilateral] Blood Pressure 111/51 111/51 O2 Sat by Pulse 97 96 Oximetry 06/07/18 06/07/18 06/07/18 10:31 10:41 10:51 Temperature Pulse Rate 102 H 104 H 104 H Pulse Rate [ Anterior Bilateral] Pulse Rate [ From Monitor] Respiratory 28 H 30 H 35 H Rate Respiratory Rate [Anterior Bilateral] Blood Pressure 111/51 111/51 111/51 O2 Sat by Pulse 95 94 95 Oximetry 06/07/18 06/07/18 06/07/18 11:00 11:11 11:20 Temperature Pulse Rate 109 H 114 H 112 H Pulse Rate [ Anterior Bilateral] Pulse Rate [ From Monitor] Respiratory 28 H 25 H 37 H Rate Respiratory Rate [Anterior Bilateral] Blood Pressure 111/57 111/57 111/57 O2 Sat by Pulse 93 92 92 Oximetry 06/07/18 06/07/18 06/07/18 11:30 11:41 11:51 Temperature Pulse Rate 114 H 114 H 116 H Pulse Rate [ Anterior Bilateral] Pulse Rate [ From Monitor] Respiratory 24 34 H 27 H Rate Respiratory Rate [Anterior Bilateral] Blood Pressure 111/57 111/57 111/57 O2 Sat by Pulse 92 92 90 Oximetry 06/07/18 06/07/18 06/07/18 12:00 12:11 12:21 Temperature 97.6 F Pulse Rate 116 H 117 H 116 H Pulse Rate [ Anterior Bilateral] Pulse Rate [ From Monitor] Respiratory 33 H 24 41 H Rate Respiratory Rate [Anterior Bilateral] Blood Pressure 119/75 119/75 119/75 O2 Sat by Pulse 89 93 93 Oximetry 06/07/18 06/07/18 12:31 12:41 Temperature Pulse Rate 119 H 116 H Pulse Rate [ Anterior Bilateral] Pulse Rate [ From Monitor] Respiratory 26 H 32 H Rate Respiratory Rate [Anterior Bilateral] Blood Pressure 119/75 119/75 O2 Sat by Pulse 91 86 Oximetry Constitutional: appears uncomfortable, other (elderly chronically ill looking CF; normocephalic and with mild patient-vent dyssynchrony) Eyes: non-icteric ENT: oropharynx moist, other (extubated) Neck: supple, no lymphadenopathy, no JVD, other (large neck circumference) Effort: mildly labored Ascultation: Bilateral: diminished breath sounds, rales Percussion: Bilateral: not dull Cardiovascular: regular rate and rhythm, murmur noted (ANGELO) Gastrointestinal: normoactive bowel sounds, soft, non-tender, non-distended Integumentary: normal Extremities: no cyanosis, no edema, pink and warm, pulses normal Neurologic: non-focal exam (grossly), pupils equal and round, CN II-XII normal, motor strength normal and Psychiatric: mood appropriate, affect normal CBC and BMP: 06/03/18 04:59 06/05/18 15:27 ABG, PT/INR, D-dimer: ABG POC ABG pH 7.384 (7.35-7.45) 06/05/18 04:10 POC ABG pCO2 56.3 (35-45) H 06/05/18 04:10 POC ABG pO2 61 (80-105) L 06/05/18 04:10 POC ABG HCO3 33.6 (22-26 mml/L) 06/05/18 04:10 POC ABG Total CO2 35 (23-27mmol/L) 06/05/18 04:10 POC ABG O2 Sat 90 06/05/18 04:10 PT/INR, D-dimer D-Dimer 1062.49 ng/mlDDU (0-234) H 05/28/18 13:13 Abnormal lab findings: Abnormal Labs 05/28/18 05/28/18 05/28/18 13:13 13:13 13:13 Hgb 9.7 L MCV 77 L MCH 23 L MCHC 29 L RDW 19.2 H Plt Count Lymph % (Auto) 8.5 L [place] % (Auto) 11.3 H Lymph # 0.8 L [place] # 1.1 H Seg Neutrophils % 79.8 H Seg Neuts % (Manual) Lymphocytes % (Manual) Nucleated RBC % Seg Neutrophils # Man Lymphocytes # (Manual) D-Dimer 1062.49 H POC ABG pH POC ABG pCO2 POC ABG pO2 Sodium Chloride Carbon Dioxide BUN 24 H Creatinine 0.6 L Glucose POC Glucose Calcium Magnesium Albumin 3.5 L Triglycerides Ur Specific [place] 05/28/18 05/28/18 05/28/18 13:22 14:50 16:05 Hgb MCV MCH MCHC RDW Plt Count Lymph % (Auto) [place] % (Auto) Lymph # [place] # Seg Neutrophils % Seg Neuts % (Manual) Lymphocytes % (Manual) Nucleated RBC % Seg Neutrophils # Man Lymphocytes # (Manual) D-Dimer POC ABG pH 7.249 L 7.126 L POC ABG pCO2 68.9 H POC ABG pO2 77 L Sodium Chloride 109.1 H Carbon Dioxide BUN 22 H Creatinine 0.5 L Glucose POC Glucose Calcium 7.5 L Magnesium Albumin Triglycerides Ur Specific [place] 05/28/18 05/28/18 05/28/18 17:57 18:48 22:47 Hgb MCV MCH MCHC RDW Plt Count Lymph % (Auto) [place] % (Auto) Lymph # [place] # Seg Neutrophils % Seg Neuts % (Manual) Lymphocytes % (Manual) Nucleated RBC % Seg Neutrophils # Man Lymphocytes # (Manual) D-Dimer POC ABG pH 7.195 L 7.312 L POC ABG pCO2 57.5 H POC ABG pO2 57 L 73 L Sodium Chloride Carbon Dioxide BUN Creatinine Glucose POC Glucose Calcium Magnesium Albumin Triglycerides Ur Specific [place] > 1.030 H 05/30/18 05/30/18 05/31/18 06:10 10:42 04:23 Hgb MCV MCH MCHC RDW Plt Count Lymph % (Auto) [place] % (Auto) Lymph # [place] # Seg Neutrophils % Seg Neuts % (Manual) Lymphocytes % (Manual) Nucleated RBC % Seg Neutrophils # Man Lymphocytes # (Manual) D-Dimer POC ABG pH 7.214 L 7.253 L POC ABG pCO2 64.5 H 56.4 H POC ABG pO2 78 L 74 L Sodium Chloride Carbon Dioxide BUN Creatinine Glucose POC Glucose Calcium Magnesium Albumin Triglycerides Ur Specific [place] 05/31/18 05/31/18 05/31/18 06:30 08:50 08:50 Hgb 9.3 L MCV 78 L MCH 23 L MCHC 29 L RDW 19.8 H Plt Count 131 L Lymph % (Auto) [place] % (Auto) Lymph # [place] # Seg Neutrophils % Seg Neuts % (Manual) 98.0 H Lymphocytes % (Manual) 2.0 L Nucleated RBC % 1.0 H Seg Neutrophils # Man 8.4 H Lymphocytes # (Manual) 0.2 L D-Dimer POC ABG pH POC ABG pCO2 POC ABG pO2 Sodium 153 H D Chloride 117.4 H Carbon Dioxide BUN 18 H Creatinine 0.4 L Glucose 159 H POC Glucose 146 H Calcium 8.3 L Magnesium Albumin Triglycerides Ur Specific [place] 06/01/18 06/01/18 06/01/18 00:11 03:32 05:50 Hgb 9.8 L MCV 77 L MCH 23 L MCHC 29 L RDW 20.1 H Plt Count 122 L Lymph % (Auto) [place] % (Auto) Lymph # [place] # Seg Neutrophils % Seg Neuts % (Manual) Lymphocytes % (Manual) Nucleated RBC % Seg Neutrophils # Man Lymphocytes # (Manual) D-Dimer POC ABG pH 7.465 H POC ABG pCO2 POC ABG pO2 Sodium Chloride Carbon Dioxide BUN Creatinine Glucose POC Glucose 149 H Calcium Magnesium Albumin Triglycerides Ur Specific [place] 06/01/18 06/01/18 06/01/18 05:50 05:50 05:51 Hgb MCV MCH MCHC RDW Plt Count Lymph % (Auto) [place] % (Auto) Lymph # [place] # Seg Neutrophils % Seg Neuts % (Manual) Lymphocytes % (Manual) Nucleated RBC % Seg Neutrophils # Man Lymphocytes # (Manual) D-Dimer POC ABG pH POC ABG pCO2 POC ABG pO2 Sodium 152 H Chloride 113.7 H Carbon Dioxide BUN 18 H Creatinine 0.3 L Glucose 146 H POC Glucose 146 H Calcium Magnesium 2.40 H Albumin Triglycerides 214 H Ur Specific [place] 06/01/18 06/01/18 06/01/18 10:40 11:52 12:06 Hgb MCV MCH MCHC RDW Plt Count Lymph % (Auto) [place] % (Auto) Lymph # [place] # Seg Neutrophils % Seg Neuts % (Manual) Lymphocytes % (Manual) Nucleated RBC % Seg Neutrophils # Man Lymphocytes # (Manual) D-Dimer POC ABG pH POC ABG pCO2 48.4 H POC ABG pO2 Sodium Chloride Carbon Dioxide BUN Creatinine Glucose POC Glucose 147 H 138 H Calcium Magnesium Albumin Triglycerides Ur Specific [place] 06/01/18 06/02/18 06/02/18 18:08 00:39 04:11 Hgb MCV MCH MCHC RDW Plt Count Lymph % (Auto) [place] % (Auto) Lymph # [place] # Seg Neutrophils % Seg Neuts % (Manual) Lymphocytes % (Manual) Nucleated RBC % Seg Neutrophils # Man Lymphocytes # (Manual) D-Dimer POC ABG pH POC ABG pCO2 50.3 H POC ABG pO2 72 L Sodium Chloride Carbon Dioxide BUN Creatinine Glucose POC Glucose 156 H 156 H Calcium Magnesium Albumin Triglycerides Ur Specific [place] 06/02/18 06/02/18 06/02/18 05:16 07:47 07:47 Hgb 10.0 L MCV 77 L MCH 23 L MCHC 29 L RDW 18.8 H Plt Count 103 L Lymph % (Auto) [place] % (Auto) Lymph # [place] # Seg Neutrophils % Seg Neuts % (Manual) Lymphocytes % (Manual) Nucleated RBC % Seg Neutrophils # Man Lymphocytes # (Manual) D-Dimer POC ABG pH POC ABG pCO2 POC ABG pO2 Sodium 148 H Chloride 109.4 H Carbon Dioxide 32 H BUN 21 H Creatinine 0.3 L Glucose 137 H POC Glucose 150 H Calcium Magnesium Albumin Triglycerides Ur Specific [place] 06/02/18 06/02/18 06/02/18 11:46 17:51 19:58 Hgb MCV MCH MCHC RDW Plt Count Lymph % (Auto) [place] % (Auto) Lymph # [place] # Seg Neutrophils % Seg Neuts % (Manual) Lymphocytes % (Manual) Nucleated RBC % Seg Neutrophils # Man Lymphocytes # (Manual) D-Dimer POC ABG pH POC ABG pCO2 POC ABG pO2 Sodium Chloride Carbon Dioxide BUN Creatinine Glucose POC Glucose 150 H 135 H 131 H Calcium Magnesium Albumin Triglycerides Ur Specific [place] 06/03/18 06/03/18 06/03/18 04:28 04:59 04:59 Hgb MCV 76 L MCH 23 L MCHC RDW 19.1 H Plt Count 99 L Lymph % (Auto) [place] % (Auto) Lymph # [place] # Seg Neutrophils % Seg Neuts % (Manual) Lymphocytes % (Manual) Nucleated RBC % Seg Neutrophils # Man Lymphocytes # (Manual) D-Dimer POC ABG pH POC ABG pCO2 50.4 H POC ABG pO2 65 L Sodium Chloride Carbon Dioxide BUN 23 H Creatinine 0.3 L Glucose 167 H POC Glucose Calcium Magnesium Albumin Triglycerides Ur Specific [place] 06/03/18 06/03/18 06/03/18 05:17 12:20 17:28 Hgb MCV MCH MCHC RDW Plt Count Lymph % (Auto) [place] % (Auto) Lymph # [place] # Seg Neutrophils % Seg Neuts % (Manual) Lymphocytes % (Manual) Nucleated RBC % Seg Neutrophils # Man Lymphocytes # (Manual) D-Dimer POC ABG pH POC ABG pCO2 POC ABG pO2 Sodium Chloride Carbon Dioxide BUN Creatinine Glucose POC Glucose 153 H 155 H 135 H Calcium Magnesium Albumin Triglycerides Ur Specific [place] 06/03/18 06/04/18 06/04/18 23:23 04:37 05:15 Hgb MCV MCH MCHC RDW Plt Count Lymph % (Auto) [place] % (Auto) Lymph # [place] # Seg Neutrophils % Seg Neuts % (Manual) Lymphocytes % (Manual) Nucleated RBC % Seg Neutrophils # Man Lymphocytes # (Manual) D-Dimer POC ABG pH POC ABG pCO2 51.3 H POC ABG pO2 79 L Sodium Chloride Carbon Dioxide BUN Creatinine Glucose POC Glucose 145 H 140 H Calcium Magnesium Albumin Triglycerides Ur Specific [place] 06/04/18 06/04/18 06/05/18 11:47 17:22 01:13 Hgb MCV MCH MCHC RDW Plt Count Lymph % (Auto) [place] % (Auto) Lymph # [place] # Seg Neutrophils % Seg Neuts % (Manual) Lymphocytes % (Manual) Nucleated RBC % Seg Neutrophils # Man Lymphocytes # (Manual) D-Dimer POC ABG pH POC ABG pCO2 POC ABG pO2 Sodium Chloride Carbon Dioxide BUN Creatinine Glucose POC Glucose 158 H 131 H 137 H Calcium Magnesium Albumin Triglycerides Ur Specific [place] 06/05/18 06/05/18 06/05/18 04:10 06:33 11:41 Hgb MCV MCH MCHC RDW Plt Count Lymph % (Auto) [place] % (Auto) Lymph # [place] # Seg Neutrophils % Seg Neuts % (Manual) Lymphocytes % (Manual) Nucleated RBC % Seg Neutrophils # Man Lymphocytes # (Manual) D-Dimer POC ABG pH POC ABG pCO2 56.3 H POC ABG pO2 61 L Sodium Chloride Carbon Dioxide BUN Creatinine Glucose POC Glucose 136 H 150 H Calcium Magnesium Albumin Triglycerides Ur Specific [place] 06/05/18 06/05/18 06/05/18 15:27 19:49 22:44 Hgb MCV MCH MCHC RDW Plt Count Lymph % (Auto) [place] % (Auto) Lymph # [place] # Seg Neutrophils % Seg Neuts % (Manual) Lymphocytes % (Manual) Nucleated RBC % Seg Neutrophils # Man Lymphocytes # (Manual) D-Dimer POC ABG pH POC ABG pCO2 POC ABG pO2 Sodium Chloride Carbon Dioxide 36 H D BUN 25 H Creatinine 0.4 L Glucose 130 H POC Glucose 125 H 137 H Calcium Magnesium Albumin Triglycerides Ur Specific [place] 06/06/18 12:51 Hgb MCV MCH MCHC RDW Plt Count Lymph % (Auto) [place] % (Auto) Lymph # [place] # Seg Neutrophils % Seg Neuts % (Manual) Lymphocytes % (Manual) Nucleated RBC % Seg Neutrophils # Man Lymphocytes # (Manual) D-Dimer POC ABG pH POC ABG pCO2 POC ABG pO2 Sodium Chloride Carbon Dioxide BUN Creatinine Glucose POC Glucose 66 L Calcium Magnesium Albumin Triglycerides Ur Specific [place] Allied health notes reviewed: nursing
[2018-06-08] MEDS: ATIVAN IV PRN ×2 (01:00→20:53)
[2018-06-08] MEDS: FREE WATER PO SCH ×5 (02:00→18:00)
[2018-06-08 04:25] LABS: Hematocrit 32.4 % (30.3-42.9); Hemoglobin 10.1 gm/dl (10.1-14.3); Mean Corpuscular HGB Conc 31 % (30-34); Mean Corpuscular Volume 76 fl (79-97); Red Blood Count 4.27 M/mm3 (3.65-5.03); Red Cell Distribution Width 19.8 % (13.2-15.2)
[2018-06-08 04:29] LABS: Platelet Count 103 K/mm3 (140-440)
[2018-06-08 04:43] LABS: BUN/Creatinine Ratio 55; Blood Urea Nitrogen 11 mg/dL (7-17); Calcium 8.3 mg/dL (8.4-10.2); Hemolysis Index 57
[2018-06-08] MEDS: LOPRESSOR IV SCH ×3 (06:00→18:00)
[2018-06-08] MEDS: HumaLOG SUB-Q SCH ×4 (06:00→18:00)
[2018-06-08] MEDS: SOLU-Medrol IV SCH ×2 (06:00→21:21)
[2018-06-08] MEDS: LIORESAL PO SCH ×2 (09:05→21:20)
[2018-06-08] MEDS: PREVACID SOLUTAB FEEDTUBE SCH (09:06)
[2018-06-08] MEDS: NORVASC PO SCH ×2 (09:06→09:08)
[2018-06-08] MEDS: ZESTRIL PO SCH (09:07)
[2018-06-08] MEDS: SODIUM CHLORIDE FLUSH SYRINGE 10 ML IV SCH (09:09)
[2018-06-08] MEDS: PULMICORT IH SCH ×2 (09:10→19:52)
[2018-06-08] MEDS: BROVANA NEBU IH SCH ×2 (09:10→19:52)
[2018-06-08] MEDS: DUONEB *Not for PRN Use IH SCH ×2 (09:10→19:52)
[2018-06-08] MEDS: LEVAQUIN 750MG/150ML 750 MG/150 ML BAG IV SCH (10:00)
[2018-06-08] MEDS: BUSPAR PO SCH ×2 (10:00→21:21)
--- NOTE | 2018-06-08 10:14 | Progress Note ---
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 According to chart, pt has not been using her O2 and started hallucinating. She was intubated in the ED. She was also hypotensive in the ED and started on Vasopressor/Levophed * CTA chest IMPRESSION: 1. Study degraded by artifact created by retained hardware in the thoracic spine and by motion artifact. 2. No evidence of central pulmonary artery emboli. However, segmental pulmonary artery emboli could be missed or overcalled due to significant artifact. 3. Complete consolidation left lower lobe with air bronchograms and volume loss consistent with atelectasis. There appears to be opacification of a portion of the left lower lobe bronchus. 4. Tip of the endotracheal tube projected in satisfactory position. 5. Cardiomegaly. 6. IVC filter. 7. Prominent kyphosis of the thoracic spine with extensive instrumentation with retained hardware. * Abdominal 1 view XRAY IMPRESSION: Nasogastric tube is terminating in the stomach. Mild degree left pleural effusion * pCXR FINDINGS: Heart: Prominent cardiac silhouette. Mediastinum/Vessels: Prominent central vessels. Lungs/Pleural space: Left lung base airspace consolidation. Bony thorax: No acute osseous abnormality. Life support devices: The endotracheal tube tip is obscured by hardware in the thoracic spine, but likely projects approximately 4 cm superior to the carlos manuel. IMPRESSION: Prominent cardiac silhouette. Left lung base airspace consolidatio n -AMS with Acute encephalopathy, prior records show a long history of similar presentations and PCP toxicity: UDS is negative, Still very lathergic, will obtain Consultation with Mental Health -Acute on chronic combined respiratory failure s/p ETT MV: Now extubated -Severe AE COPD: treat with iv steriods continue taper, abx, nebs around the clock -Hypotension due to circulatory shock possible septic shock from LLL pneumonia: off Vasopressor. Resolved -Septic Shock suspected LLL Pseudomonas/E.coli pneumonia: treat with ivf, abx, ID following, trachea aspirate growing Gram negative==> PSA resistant to Aztreonam/zosyn/cefepime/fortaz but sensitive to cipro/gent/levaquin/tobramycin; E. coli has not resistant, changed antibiotics to Levaquin and Gentamicin on Friday. Gentamincine stopped. OFF Vasopressor since Friday. Sputum culture positive for Pseudomonas/Escherichia coli -DVT prophylaxis: sq Lovenox -Acute thrombocytopenia: Lovenox discontinued, awaiting HIT, SCD -Disposition: Transfer to Telemetry full code Spoke in debt to family History Interval history: Patient seen and examined remained confused, Extubated. now off BIPAP Hospitalist Physical - Physical exam Narrative exam: General appearance: Present: no acute distress, other on venti mask - EENT Eyes: Present: PERRL ENT: clear oral mucosa, other - Neck Neck: Present: supple - Respiratory Respiratory effort: normal Respiratory: bilateral: CTA - Cardiovascular Rhythm: regular (with tachycardia) Heart Sounds: Present: S1 & S2 - Extremities Extremities: No edema - Abdominal General gastrointestinal: soft, non-tender, non-distended, normal bowel sounds - Integumentary Integumentary: Present: clear, warm, dry - Neurologic Neurologic: other still confused - Constitutional Vitals: Temp Pulse Resp BP Pulse Ox 98.8 F 82 24 135/63 99 06/08/18 08:00 06/08/18 09:31 06/08/18 09:31 06/08/18 09:14 06/08/18 09:14 General appearance: Present: no acute distress, other (pt is intubated.) Results - Labs CBC & Chem 7: 06/08/18 03:37 06/08/18 03:37 Labs: Laboratory Last Values WBC 10.2 K/mm3 (4.5-11.0) 06/08/18 03:37 RBC 4.27 M/mm3 (3.65-5.03) 06/08/18 03:37 Hgb 10.1 gm/dl (10.1-14.3) 06/08/18 03:37 Hct 32.4 % (30.3-42.9) 06/08/18 03:37 MCV 76 fl (79-97) L 06/08/18 03:37 MCH 24 pg (28-32) L 06/08/18 03:37 MCHC 31 % (30-34) 06/08/18 03:37 RDW 19.8 % (13.2-15.2) H 06/08/18 03:37 Plt Count 103 K/mm3 (140-440) L 06/08/18 03:37 Lymph % (Auto) 8.5 % (13.4-35.0) L 05/28/18 13:13 [place] % (Auto) 11.3 % (0.0-7.3) H 05/28/18 13:13 Eos % (Auto) 0.0 % (0.0-4.3) 05/28/18 13:13 Baso % (Auto) 0.4 % (0.0-1.8) 05/28/18 13:13 Lymph # 0.8 K/mm3 (1.2-5.4) L 05/28/18 13:13 [place] # 1.1 K/mm3 (0.0-0.8) H 05/28/18 13:13 Eos # 0.0 K/mm3 (0.0-0.4) 05/28/18 13:13 Baso # 0.0 K/mm3 (0.0-0.1) 05/28/18 13:13 Add Manual Diff Complete 05/31/18 08:50 Total Counted 100 05/31/18 08:50 Seg Neutrophils % Agile Business Analyst 05/31/18 08:50 Seg Neuts % (Manual) 98.0 % (40.0-70.0) H 05/31/18 08:50 Band Neutrophils % 0 % 05/31/18 08:50 Lymphocytes % (Manual) 2.0 % (13.4-35.0) L 05/31/18 08:50 Reactive Lymphs % (Man) 0 % 05/31/18 08:50 Monocytes % (Manual) 0 % (0.0-7.3) 05/31/18 08:50 Eosinophils % (Manual) 0 % (0.0-4.3) 05/31/18 08:50 Basophils % (Manual) 0 % (0.0-1.8) 05/31/18 08:50 Metamyelocytes % 0 % 05/31/18 08:50 Myelocytes % 0 % 05/31/18 08:50 Promyelocytes % 0 % 05/31/18 08:50 Blast Cells % 0 % 05/31/18 08:50 Nucleated RBC % 1.0 % (0.0-0.9) H 05/31/18 08:50 Seg Neutrophils # 7.7 K/mm3 (1.8-7.7) 05/28/18 13:13 Seg Neutrophils # Man 8.4 K/mm3 (1.8-7.7) H 05/31/18 08:50 Band Neutrophils # 0.0 K/mm3 05/31/18 08:50 Lymphocytes # (Manual) 0.2 K/mm3 (1.2-5.4) L 05/31/18 08:50 Abs React Lymphs (Man) 0.0 K/mm3 05/31/18 08:50 Monocytes # (Manual) 0.0 K/mm3 (0.0-0.8) 05/31/18 08:50 Eosinophils # (Manual) 0.0 K/mm3 (0.0-0.4) 05/31/18 08:50 Basophils # (Manual) 0.0 K/mm3 (0.0-0.1) 05/31/18 08:50 Metamyelocytes # 0.0 K/mm3 05/31/18 08:50 Myelocytes # 0.0 K/mm3 05/31/18 08:50 Promyelocytes # 0.0 K/mm3 05/31/18 08:50 Blast Cells # 0.0 K/mm3 05/31/18 08:50 WBC Morphology Not Reportable 05/31/18 08:50 Hypersegmented Neuts Not Reportable 05/31/18 08:50 Hyposegmented Neuts Not Reportable 05/31/18 08:50 Hypogranular Neuts Not Reportable 05/31/18 08:50 Smudge Cells Not Reportable 05/31/18 08:50 Toxic Granulation Not Reportable 05/31/18 08:50 Toxic Vacuolation Not Reportable 05/31/18 08:50 Dohle Bodies Not Reportable 05/31/18 08:50 Pelger-Huet Anomaly Not Reportable 05/31/18 08:50 Neha Rods Not Reportable 05/31/18 08:50 Platelet Estimate Consistent w auto 05/31/18 08:50 Clumped Platelets Not Reportable 05/31/18 08:50 Plt Clumps, EDTA Not Reportable 05/31/18 08:50 Large Platelets Not Reportable 05/31/18 08:50 Giant Platelets Not Reportable 05/31/18 08:50 Platelet Satelliting Not Reportable 05/31/18 08:50 Plt Morphology Comment Not Reportable 05/31/18 08:50 RBC Morphology Not Reportable 05/31/18 08:50 Dimorphic RBCs Not Reportable 05/31/18 08:50 Polychromasia Few 05/31/18 08:50 Hypochromasia Few 05/31/18 08:50 Poikilocytosis Not Reportable 05/31/18 08:50 Anisocytosis Not Reportable 05/31/18 08:50 Microcytosis Not Reportable 05/31/18 08:50 Macrocytosis Not Reportable 05/31/18 08:50 Spherocytes Not Reportable 05/31/18 08:50 Pappenheimer Bodies Not Reportable 05/31/18 08:50 Sickle Cells Not Reportable 05/31/18 08:50 Target Cells Not Reportable 05/31/18 08:50 Tear Drop Cells Not Reportable 05/31/18 08:50 Ovalocytes Not Reportable 05/31/18 08:50 Stomatocytes Rare 05/31/18 08:50 Helmet Cells Not Reportable 05/31/18 08:50 [place] Bodies Not Reportable 05/31/18 08:50 [place] Rings Not Reportable 05/31/18 08:50 [place] Cells Not Reportable 05/31/18 08:50 Bite Cells Not Reportable 05/31/18 08:50 Crenated Cell Not Reportable 05/31/18 08:50 Elliptocytes Not Reportable 05/31/18 08:50 Acanthocytes (Spur) Not Reportable 05/31/18 08:50 Rouleaux Not Reportable 05/31/18 08:50 Hemoglobin C Crystals Not Reportable 05/31/18 08:50 Schistocytes Not Reportable 05/31/18 08:50 Malaria parasites Not Reportable 05/31/18 08:50 [place]an Bodies Not Reportable 05/31/18 08:50 Hem Pathologist Commnt No 05/31/18 08:50 D-Dimer 1062.49 ng/mlDDU (0-234) H 05/28/18 13:13 POC ABG pH 7.384 (7.35-7.45) 06/05/18 04:10 POC ABG pCO2 56.3 (35-45) H 06/05/18 04:10 POC ABG pO2 61 (80-105) L 06/05/18 04:10 POC ABG HCO3 33.6 (22-26 mml/L) 06/05/18 04:10 POC ABG Total CO2 35 (23-27mmol/L) 06/05/18 04:10 POC ABG O2 Sat 90 06/05/18 04:10 POC ABG Base Excess 9 ((-2) - (+3)mmol/L) 06/05/18 04:10 FiO2 45 % 06/05/18 04:10 Sodium 139 mmol/L (137-145) 06/08/18 03:37 Potassium 4.0 mmol/L (3.6-5.0) 06/08/18 03:37 Chloride 100.6 mmol/L (98-107) 06/08/18 03:37 Carbon Dioxide 29 mmol/L (22-30) D 06/08/18 03:37 Anion Gap 13 mmol/L 06/08/18 03:37 BUN 11 mg/dL (7-17) 06/08/18 03:37 Creatinine 0.2 mg/dL (0.7-1.2) L 06/08/18 03:37 Estimated GFR > 60 ml/min 06/08/18 03:37 BUN/Creatinine Ratio 55 % 06/08/18 03:37 Glucose 123 mg/dL (65-100) H 06/08/18 03:37 POC Glucose 119 (70-105) H 06/08/18 06:24 Lactic Acid 0.90 mmol/L (0.7-2.0) 05/28/18 14:50 Calcium 8.3 mg/dL (8.4-10.2) L 06/08/18 03:37 Magnesium 2.40 mg/dL (1.7-2.3) H 06/01/18 05:50 Total Bilirubin 0.30 mg/dL (0.1-1.2) 05/28/18 13:13 AST 23 units/L (5-40) 05/28/18 13:13 ALT 11 units/L (7-56) 05/28/18 13:13 Alkaline Phosphatase 96 units/L (35-129) 05/28/18 13:13 Troponin T < 0.010 ng/mL (0.00-0.029) 05/28/18 13:13 Total Protein 6.6 g/dL (6.3-8.2) 05/28/18 13:13 Albumin 3.5 g/dL (3.9-5) L 05/28/18 13:13 Albumin/Globulin Ratio 1.1 % 05/28/18 13:13 Triglycerides 214 mg/dL (2-149) H 06/01/18 05:50 Urine Color Yellow (Yellow) 05/28/18 17:57 Urine Turbidity Clear (Clear) 05/28/18 17:57 Urine pH 6.0 (5.0-7.0) 05/28/18 17:57 Ur Specific [place] > 1.030 (1.003-1.030) H 05/28/18 17:57 Urine Protein 100 mg/dl mg/dL (Negative) 05/28/18 17:57 Urine Glucose (UA) Neg mg/dL (Negative) 05/28/18 17:57 Urine Ketones 20 mg/dL (Negative) 05/28/18 17:57 Urine Blood Sm (Negative) 05/28/18 17:57 Urine Nitrite Neg (Negative) 05/28/18 17:57 Urine Bilirubin Neg (Negative) 05/28/18 17:57 Urine Urobilinogen 2.0 mg/dL (<2.0) 05/28/18 17:57 Ur Leukocyte Esterase Neg (Negative) 05/28/18 17:57 Urine WBC (Auto) 1.0 /HPF (0.0-6.0) 05/28/18 17:57 Urine RBC (Auto) 2.0 /HPF (0.0-6.0) 05/28/18 17:57 U Epithel Cells (Auto) < 1.0 /HPF (0-13.0) 05/28/18 17:57 Urine Mucus Few /HPF 05/28/18 17:57 Random Gentamicin 0.4 ug/mL (0.0-10.0) 06/01/18 05:50 Vancomycin Trough 7.2 ug/mL (5.0-20.0) 05/31/18 09:39 Urine Opiates Screen Presumptive negative 05/29/18 23:50 Urine Methadone Screen Presumptive negative 05/29/18 23:50 Ur Barbiturates Screen Presumptive negative 05/29/18 23:50 Ur Phencyclidine Scrn Presumptive negative 05/29/18 23:50 Ur Amphetamines Screen Presumptive negative 05/29/18 23:50 U Benzodiazepines Scrn Presumptive negative 05/29/18 23:50 Urine Cocaine Screen Presumptive negative 05/29/18 23:50 U Marijuana (THC) Screen Presumptive negative 05/29/18 23:50 Drugs of Abuse Note Disclamer 05/29/18 23:50 Active Medications - Current Medications Current Medications: Generic Name Dose Route Start Last Admin Trade Name Freq PRN Reason Stop Dose Admin Acetaminophen 650 mg 05/31/18 09:02 05/31/18 09:26 Tylenol FEEDTUBE 650 mg Q6H PRN Administration Non Cardiac Pain or Temp>100.5 Albuterol/Ipratropium 1 ampul 06/04/18 20:00 06/08/18 09:10 Duoneb *Not For Prn Use* IH 1 ampul BIDRT DOMINICK Administration Amlodipine Besylate 10 mg 05/29/18 10:00 06/08/18 09:08 Norvasc PO 10 mg DAILY DOMINICK Administration Lipase/Protease/Amylase 1 each 05/28/18 22:45 Pancreaze 10,500 Unit FEEDTUBE PRN PRN For Clogged Feeding Tube Arformoterol Tartrate 15 mcg 06/04/18 20:00 06/08/18 09:10 Brovana Osmar IH 15 mcg Q12HRT DOMINICK Administration Baclofen 10 mg 05/28/18 23:00 06/08/18 09:05 Lioresal PO 10 mg BID DOMINICK Administration Budesonide 0.5 mg 05/28/18 22:45 06/08/18 09:10 Pulmicort IH 0.5 mg Q12HRT DOMINICK Administration Buspirone HCl 5 mg 05/28/18 23:00 06/07/18 22:00 Buspar PO Not Given BID DOMINICK Levofloxacin/Dextrose 750 mg in 150 mls @ 100 mls/hr 05/31/18 11:00 06/07/18 11:30 Levaquin 750mg/150ml IV 06/09/18 11:29 Infused Q24HR DOMINICK Infusion Protocol Insulin Human Lispro 0 unit 06/01/18 10:00 06/08/18 06:00 Humalog SUB-Q Not Given Q6HR [facility] Protocol Lansoprazole 30 mg 05/30/18 10:00 06/08/18 09:06 Prevacid Solutab FEEDTUBE 30 mg QDAY DOMINICK Administration Lisinopril 10 mg 05/29/18 10:00 06/08/18 09:07 Zestril PO 10 mg QDAY DOMINICK Administration Lorazepam 2 mg 05/31/18 08:39 06/07/18 11:23 Ativan IV 2 mg Q1H PRN Administration CIWA-Ar 8-15 Lorazepam 4 mg 05/31/18 08:39 06/08/18 01:00 Ativan IV 4 mg Q1H PRN Administration CIWA-Ar 16-25 Lorazepam 4 mg 05/31/18 08:39 06/05/18 20:00 Ativan IV 4 mg Q15MIN PRN Administration CIWA-Ar >25 Methylprednisolone Sodium Succinate 40 mg 06/07/18 09:30 06/08/18 06:00 Solu-Medrol IV Not Given Q8HR DOMINICK Metoprolol Tartrate 2.5 mg 06/06/18 12:00 06/08/18 06:00 Lopressor IV Not Given Q6HR DOMINICK Quetiapine Fumarate 300 mg 06/04/18 22:00 06/08/18 09:09 Seroquel PO 300 mg BID DOMINICK Administration Simple Syrup 15 ml 05/28/18 22:45 06/06/18 12:00 Simple Syrup FEEDTUBE 15 ml PRN PRN Administration Hypoglycemia Simple Syrup 30 ml 05/28/18 22:45 Simple Syrup FEEDTUBE PRN PRN Hypoglycemia Sodium Bicarbonate 325 mg 05/28/18 22:45 06/07/18 23:48 Sodium Bicarbonate FEEDTUBE 325 mg PRN PRN Administration For Clogged Feeding Tube Sodium Chloride 10 ml 05/29/18 10:00 06/08/18 09:09 Sodium Chloride Flush Syringe 10 Ml IV 10 ml BID DOMINICK Administration Sodium Chloride 10 ml 05/28/18 22:45 06/06/18 05:50 Sodium Chloride Flush Syringe 10 Ml IV 10 ml PRN PRN Administration LINE FLUSH Nutrition/Malnutrition Assess - Dietary Evaluation Nutrition/Malnutrition Findings: Nutrition Notes Start: 05/29/18 09:32 Freq: Status: Active Protocol: Document 06/05/18 10:49 TW (Rec: 06/05/18 11:02 TW [id number]) Co-Sign 06/05/18 10:49 LP Nutrition Notes Initial or Follow up Reassessment Current Diagnosis COPD,Hypertension,Respiratory Failure Other Pertinent Diagnosis COPD exacerbation, End-stage lung Dz Current Diet Vital High Protein at 45mL/hr Labs/Tests reviewed Pertinent Medications Propofol at 5.052mL/hr ( provides 133 lipid kcal) Solumedrol Levophed gtt Lasix Height 5 ft Weight 93.5 kg [place] Body Weight (kg) 45.45 BMI 40.2 Weight Status Obese Subjective/Other Information F/U for stable TF. Noted TF not running since 8:00 am. TF will continue to be held for extubation. TF will continue to goal after procedure. As discussed in interdisciplinary rounds, pt jose have diet advanced if okayed by RETAIL ACCOUNT EXECUTIVE. Burn Absent Trauma Absent #1 Nutrition Diagnosis Inadequate oral intake Diagnosis Progress(for reassessment Continues documentation) Is patient on ventilator? Yes Is Patient Ambulatory and/or Out of Bed No REE-([place]-St. Jeor-confined to bed) 1716.444 Kcal/Kg value to use for calculation 14 Approximate Energy Requirements Using 1309 kcal/Kg Calculation Used for Recommendations Kcal/kg Additional Notes Pro needs 2g/kg IBW: 91g/day Fluid needs 1ml/kcal Nutrition Intervention Change Diet Order: Advance when medically feasible Nutrition Support: Continue Vital High Protein at 50mL/hr. Flush for hypernatermia per MD at this time until hypernatermia resolved then 50mL q4h Kcal 1,200 Protein (gm) 105 Fluid (mL) 1,003 Goal #1 TF tolerance Goal #2 TF to meet 80-100% energy and protein needs Goal #3 diet advancement Anticipated Discharge Needs: Unable to identify at this time Follow-Up By: 06/09/18 Additional Comments F/U: stable TF post-extubation / possible diet advancement
[2018-06-08 10:45] LABS: Heparin-Induced Platelet Antib Negative (Negative); Unfractionated Heparin Negative (Negative)
--- NOTE | 2018-06-08 11:36 | Progress Note ---
Assessment and Plan Cultures: 05/28/2018 blood culture: no growth 05/28/2018 Resp culture: E. coli, Pseudomonas aeruginosa 05/31/2018 blood culture: no growth A/P: 58-year-old female with COPD with chronic respiratory failure on home oxygen admitted with shortness of breath and confusion: 1) Septic shock: resolved, off pressors, fever resolved for 4 days; likely secondary to left lower lobe pneumonia requiring mechanical ventilation. Cultures growing resistant Pseudomonas, susceptible E.coli. On abx. 2) Acute on chronic respiratory failure with underlying COPD: On mechanical ventilation now on BIPAP 3) Acute encephalopathy: likely metabolic. Improving. 4) Spinal hardware noted on imaging, no concern for infection at present. Recs: continue Levofloxacin Day 9 of 10 monitor mentation still sleepy Will follow Mirtha Hairston MD Infectious Diseases Tur[employer] [facility] M [phone] O [phone] Subjective Date of service: 06/08/18 Principal diagnosis: Septic Shock (? LLL pneumonia); Ac on Ch hypoxic- hypercapnic Resp failure Interval history: Extubated during the weekend, off sedative, sleepy, following commands. No fever for over 4 days. ROS: unable to obtain. Objective - Exam Narrative Exam: General appearance: Alert in NAD sleepy on Mask O2 Eyes: anicteric sclerae, moist conjunctivae; no lid-lag; PERRLA HENT: Atraumatic; oropharynx limited Neck: Trachea midline; supple, no thyromegaly or lymphadenopathy Lungs: CTA emma CV: RRR, Abdomen: Soft, non-tender; no masses or hepatosplenomegaly Extremities: No peripheral edema or extremity lymphadenopathy Skin: Normal temperature, turgor and texture; no rash, ulcers or subcutaneous nodules Psych: sleepy follows commands - Constitutional Vitals: Vital Signs Temp Pulse Resp BP Pulse Ox 98.8 F 90 28 H 132/58 85 06/08/18 08:00 06/08/18 11:11 06/08/18 11:11 06/08/18 11:11 06/08/18 11:11 Temperature -Last 24 Hours Temperature 98.8 F Temperature 97.5 F Temperature 97.8 F Temperature 98.9 F Temperature 98.4 F Temperature 97.6 F - Labs CBC & Chem 7: 06/08/18 03:37 06/08/18 03:37 Labs: Abnormal lab results 06/07/18 06/07/18 06/08/18 Range/Units 18:24 23:45 03:37 MCV 76 L (79-97) fl MCH 24 L (28-32) pg RDW 19.8 H (13.2-15.2) % Plt Count 103 L (140-440) K/mm3 Creatinine (0.7-1.2) mg/dL Glucose (65-100) mg/dL POC Glucose 139 H 130 H (70-105) Calcium (8.4-10.2) mg/dL 06/08/18 06/08/18 Range/Units 03:37 06:24 MCV (79-97) fl MCH (28-32) pg RDW (13.2-15.2) % Plt Count (140-440) K/mm3 Creatinine 0.2 L (0.7-1.2) mg/dL Glucose 123 H (65-100) mg/dL POC Glucose 119 H (70-105) Calcium 8.3 L (8.4-10.2) mg/dL
--- NOTE | 2018-06-08 14:44 | Progress Note ---
Assessment and Plan Septic Shock suspected LLL pneumonia, SOFA score >2 Acute on chronic combined( hypoxic-hypercapnic) respiratory failure s/p ETT MVS Severe AE COPD AMS with Acute encephalopathy Macrocytosis GNR pneumonia, probably secondary to aspiration Acute encephalaopthy( toxic, metabolic) History of substance abuse - continue BIPAP qhs in short term - Advance diet per ST roll operator - continue scheduled duonebs bid - continue seroquel at 300 mg bid - continue brovana & pulmicort - PT/OT to increase ambulation - bilateral lower extremity dopplers negative for DVT - continue to wean supplemental oxygen to keep O2 sats 88-90% (remains on 40% venti-mask) - continue Lung protective strategies - Oxygen restrictive strategies acutely (target sat's 88-90% acutely) - prn ABGs/CXR at this point - complete empiric antibiotics for aspiration PNA - Follow tracheal aspirate cultures and adjust antibiotic therapy based on VITO/ ID - continue Stress ulcer prophylaxis - continue VTE prophylaxis - continue systemic steroids with slow taper - resume chronic home medications per attending - continue accuchecks with glycemic control for target glucose of 140-180 mg/dL - Continue bronchodilators with pulmonary hygiene per RT - continue maintenance of sleep -wake cycle - continue mobility as tolerated by hemodynamics - Influenza and pneumonia vaccination addressed per protocol ..... OK to transfer to telemetry ..... care plan discussed at length with RN/RT during rounds PROGNOSIS fair CODE STATUS: FULL CODE Subjective Date of service: 06/08/18 Principal diagnosis: Septic Shock (? LLL pneumonia); Ac on Ch hypoxic- hypercapnic Resp failure Interval history: Patient is seen today for: Septic Shock suspected LLL pneumonia, SOFA score > 2; Acute on chronic combined( hypoxic-hypercapnic) respiratory failure s/p ETT MVS; Severe AE COPD; AMS with Acute encephalopathy; Macrocytosis Seen and examined at bedside; 24hour events reviewed; nursing and respiratory care staff consulted; no adverse overnight events reported to me; resting peacefully in bed; denies acute chest pains; still SOB; remains on supplemental oxygen; no N/V/F/C Objective Vital Signs - 12hr 06/08/18 06/08/18 06/08/18 02:51 03:00 03:11 Temperature Pulse Rate 77 74 74 Pulse Rate [ Anterior Bilateral] Pulse Rate [ From Monitor] Respiratory 25 H 29 H 32 H Rate Respiratory Rate [Anterior Bilateral] Blood Pressure 135/57 135/57 98/47 O2 Sat by Pulse 94 94 95 Oximetry 06/08/18 06/08/18 06/08/18 03:21 03:31 03:41 Temperature Pulse Rate 74 74 73 Pulse Rate [ Anterior Bilateral] Pulse Rate [ From Monitor] Respiratory 29 H 31 H 29 H Rate Respiratory Rate [Anterior Bilateral] Blood Pressure 135/57 135/57 135/57 O2 Sat by Pulse 95 96 96 Oximetry 06/08/18 06/08/18 06/08/18 03:51 04:00 04:11 Temperature 97.5 F L Pulse Rate 74 69 72 Pulse Rate [ Anterior Bilateral] Pulse Rate [ From Monitor] Respiratory 22 28 H 28 H Rate Respiratory Rate [Anterior Bilateral] Blood Pressure 135/57 116/58 116/58 O2 Sat by Pulse 97 98 98 Oximetry 06/08/18 06/08/18 06/08/18 04:21 04:25 04:31 Temperature Pulse Rate 71 71 71 Pulse Rate [ Anterior Bilateral] Pulse Rate [ From Monitor] Respiratory 30 H 26 H 24 Rate Respiratory Rate [Anterior Bilateral] Blood Pressure 116/58 116/58 116/58 O2 Sat by Pulse 95 95 95 Oximetry 06/08/18 06/08/18 06/08/18 04:41 04:51 05:00 Temperature Pulse Rate 69 70 69 Pulse Rate [ Anterior Bilateral] Pulse Rate [ From Monitor] Respiratory 27 H 26 H 26 H Rate Respiratory Rate [Anterior Bilateral] Blood Pressure 116/58 116/58 96/46 O2 Sat by Pulse 95 96 95 Oximetry 06/08/18 06/08/18 06/08/18 05:11 05:21 05:31 Temperature Pulse Rate 69 68 68 Pulse Rate [ Anterior Bilateral] Pulse Rate [ From Monitor] Respiratory 25 H 22 26 H Rate Respiratory Rate [Anterior Bilateral] Blood Pressure 96/46 96/46 96/46 O2 Sat by Pulse 96 96 97 Oximetry 06/08/18 06/08/18 06/08/18 05:41 05:51 06:00 Temperature Pulse Rate 69 67 68 Pulse Rate [ Anterior Bilateral] Pulse Rate [ 103 H From Monitor] Respiratory 26 H 27 H 25 H Rate Respiratory Rate [Anterior Bilateral] Blood Pressure 96/46 96/46 115/56 O2 Sat by Pulse 97 98 98 Oximetry 06/08/18 06/08/18 06/08/18 06:11 06:21 06:31 Temperature Pulse Rate 66 74 73 Pulse Rate [ Anterior Bilateral] Pulse Rate [ From Monitor] Respiratory 23 24 Rate Respiratory Rate [Anterior Bilateral] Blood Pressure 115/56 115/56 115/56 O2 Sat by Pulse 98 98 97 Oximetry 06/08/18 06/08/18 06/08/18 06:41 06:51 07:00 Temperature Pulse Rate 73 72 71 Pulse Rate [ Anterior Bilateral] Pulse Rate [ From Monitor] Respiratory 27 H 24 26 H Rate Respiratory Rate [Anterior Bilateral] Blood Pressure 115/56 115/56 112/57 O2 Sat by Pulse 96 95 95 Oximetry 06/08/18 06/08/18 06/08/18 07:11 07:21 07:31 Temperature Pulse Rate 70 70 71 Pulse Rate [ Anterior Bilateral] Pulse Rate [ From Monitor] Respiratory 26 H 26 H 26 H Rate Respiratory Rate [Anterior Bilateral] Blood Pressure 112/57 112/57 112/57 O2 Sat by Pulse 94 94 95 Oximetry 06/08/18 06/08/18 06/08/18 07:41 07:51 08:00 Temperature 98.8 F Pulse Rate 72 71 71 Pulse Rate [ Anterior Bilateral] Pulse Rate [ From Monitor] Respiratory 25 H 27 H 26 H Rate Respiratory Rate [Anterior Bilateral] Blood Pressure 112/57 112/57 113/55 O2 Sat by Pulse 96 96 96 Oximetry 06/08/18 06/08/18 06/08/18 08:11 08:21 08:31 Temperature Pulse Rate 72 66 76 Pulse Rate [ Anterior Bilateral] Pulse Rate [ From Monitor] Respiratory 25 H 22 21 Rate Respiratory Rate [Anterior Bilateral] Blood Pressure 113/55 113/55 113/55 O2 Sat by Pulse 96 96 97 Oximetry 06/08/18 06/08/18 06/08/18 08:41 08:51 09:01 Temperature Pulse Rate 75 81 78 Pulse Rate [ Anterior Bilateral] Pulse Rate [ From Monitor] Respiratory 23 24 24 Rate Respiratory Rate [Anterior Bilateral] Blood Pressure 113/55 113/55 135/63 O2 Sat by Pulse 98 97 98 Oximetry 06/08/18 06/08/18 06/08/18 09:06 09:07 09:08 Temperature Pulse Rate 75 75 74 Pulse Rate [ Anterior Bilateral] Pulse Rate [ From Monitor] Respiratory Rate Respiratory Rate [Anterior Bilateral] Blood Pressure 135/63 135/63 135/63 O2 Sat by Pulse Oximetry 06/08/18 06/08/18 06/08/18 09:11 09:14 09:21 Temperature Pulse Rate 76 77 73 Pulse Rate [ 75 Anterior Bilateral] Pulse Rate [ From Monitor] Respiratory 25 H 24 26 H Rate Respiratory 22 Rate [Anterior Bilateral] Blood Pressure 135/63 135/63 135/63 O2 Sat by Pulse 98 99 100 Oximetry 06/08/18 06/08/18 06/08/18 09:31 09:41 09:51 Temperature Pulse Rate 76 79 78 Pulse Rate [ 82 Anterior Bilateral] Pulse Rate [ From Monitor] Respiratory 25 H 25 H 26 H Rate Respiratory 24 Rate [Anterior Bilateral] Blood Pressure 135/63 135/63 135/63 O2 Sat by Pulse 100 97 99 Oximetry 06/08/18 06/08/18 06/08/18 10:00 10:11 10:21 Temperature Pulse Rate 78 76 80 Pulse Rate [ Anterior Bilateral] Pulse Rate [ 81 From Monitor] Respiratory 27 H 25 H 20 Rate Respiratory Rate [Anterior Bilateral] Blood Pressure 99/46 99/46 99/46 O2 Sat by Pulse 98 98 98 Oximetry 06/08/18 06/08/18 06/08/18 10:31 10:41 10:51 Temperature Pulse Rate 86 93 H 75 Pulse Rate [ Anterior Bilateral] Pulse Rate [ From Monitor] Respiratory 24 25 H 25 H Rate Respiratory Rate [Anterior Bilateral] Blood Pressure 99/46 99/46 99/46 O2 Sat by Pulse 99 100 100 Oximetry 06/08/18 06/08/18 06/08/18 11:00 11:11 11:21 Temperature Pulse Rate 86 90 82 Pulse Rate [ Anterior Bilateral] Pulse Rate [ From Monitor] Respiratory 18 28 H 27 H Rate Respiratory Rate [Anterior Bilateral] Blood Pressure 132/58 132/58 132/58 O2 Sat by Pulse 99 85 99 Oximetry 06/08/18 06/08/18 06/08/18 11:31 11:41 11:51 Temperature Pulse Rate 88 97 H 98 H Pulse Rate [ Anterior Bilateral] Pulse Rate [ From Monitor] Respiratory 28 H 29 H 29 H Rate Respiratory Rate [Anterior Bilateral] Blood Pressure 132/58 132/58 132/58 O2 Sat by Pulse 99 100 100 Oximetry 06/08/18 06/08/18 06/08/18 12:00 12:11 12:21 Temperature 98.8 F Pulse Rate 108 H 101 H 100 H Pulse Rate [ Anterior Bilateral] Pulse Rate [ From Monitor] Respiratory 22 24 29 H Rate Respiratory Rate [Anterior Bilateral] Blood Pressure 133/68 133/68 133/68 O2 Sat by Pulse 98 100 100 Oximetry 06/08/18 12:31 Temperature Pulse Rate 101 H Pulse Rate [ Anterior Bilateral] Pulse Rate [ From Monitor] Respiratory 25 H Rate Respiratory Rate [Anterior Bilateral] Blood Pressure 133/68 O2 Sat by Pulse 100 Oximetry Constitutional: appears uncomfortable, other (elderly chronically ill looking CF; normocephalic and with mild patient-vent dyssynchrony) Eyes: non-icteric ENT: oropharynx moist, other (extubated) Neck: supple, no lymphadenopathy, no JVD, other (large neck circumference) Effort: mildly labored Ascultation: Bilateral: diminished breath sounds, rales Percussion: Bilateral: not dull Cardiovascular: regular rate and rhythm, murmur noted (ANGELO) Gastrointestinal: normoactive bowel sounds, soft, non-tender, non-distended Integumentary: normal Extremities: no cyanosis, no edema, pink and warm, pulses normal Neurologic: non-focal exam (grossly), pupils equal and round, CN II-XII normal, motor strength normal and Psychiatric: mood appropriate, affect normal CBC and BMP: 06/08/18 03:37 06/08/18 03:37 ABG, PT/INR, D-dimer: ABG POC ABG pH 7.384 (7.35-7.45) 06/05/18 04:10 POC ABG pCO2 56.3 (35-45) H 06/05/18 04:10 POC ABG pO2 61 (80-105) L 06/05/18 04:10 POC ABG HCO3 33.6 (22-26 mml/L) 06/05/18 04:10 POC ABG Total CO2 35 (23-27mmol/L) 06/05/18 04:10 POC ABG O2 Sat 90 06/05/18 04:10 PT/INR, D-dimer D-Dimer 1062.49 ng/mlDDU (0-234) H 05/28/18 13:13 Abnormal lab findings: Abnormal Labs 05/28/18 05/28/18 05/28/18 13:13 13:13 13:13 Hgb 9.7 L MCV 77 L MCH 23 L MCHC 29 L RDW 19.2 H Plt Count Lymph % (Auto) 8.5 L [place] % (Auto) 11.3 H Lymph # 0.8 L [place] # 1.1 H Seg Neutrophils % 79.8 H Seg Neuts % (Manual) Lymphocytes % (Manual) Nucleated RBC % Seg Neutrophils # Man Lymphocytes # (Manual) D-Dimer 1062.49 H POC ABG pH POC ABG pCO2 POC ABG pO2 Sodium Chloride Carbon Dioxide BUN 24 H Creatinine 0.6 L Glucose POC Glucose Calcium Magnesium Albumin 3.5 L Triglycerides Ur Specific [place] 05/28/18 05/28/18 05/28/18 13:22 14:50 16:05 Hgb MCV MCH MCHC RDW Plt Count Lymph % (Auto) [place] % (Auto) Lymph # [place] # Seg Neutrophils % Seg Neuts % (Manual) Lymphocytes % (Manual) Nucleated RBC % Seg Neutrophils # Man Lymphocytes # (Manual) D-Dimer POC ABG pH 7.249 L 7.126 L POC ABG pCO2 68.9 H POC ABG pO2 77 L Sodium Chloride 109.1 H Carbon Dioxide BUN 22 H Creatinine 0.5 L Glucose POC Glucose Calcium 7.5 L Magnesium Albumin Triglycerides Ur Specific [place] 05/28/18 05/28/18 05/28/18 17:57 18:48 22:47 Hgb MCV MCH MCHC RDW Plt Count Lymph % (Auto) [place] % (Auto) Lymph # [place] # Seg Neutrophils % Seg Neuts % (Manual) Lymphocytes % (Manual) Nucleated RBC % Seg Neutrophils # Man Lymphocytes # (Manual) D-Dimer POC ABG pH 7.195 L 7.312 L POC ABG pCO2 57.5 H POC ABG pO2 57 L 73 L Sodium Chloride Carbon Dioxide BUN Creatinine Glucose POC Glucose Calcium Magnesium Albumin Triglycerides Ur Specific [place] > 1.030 H 05/30/18 05/30/18 05/31/18 06:10 10:42 04:23 Hgb MCV MCH MCHC RDW Plt Count Lymph % (Auto) [place] % (Auto) Lymph # [place] # Seg Neutrophils % Seg Neuts % (Manual) Lymphocytes % (Manual) Nucleated RBC % Seg Neutrophils # Man Lymphocytes # (Manual) D-Dimer POC ABG pH 7.214 L 7.253 L POC ABG pCO2 64.5 H 56.4 H POC ABG pO2 78 L 74 L Sodium Chloride Carbon Dioxide BUN Creatinine Glucose POC Glucose Calcium Magnesium Albumin Triglycerides Ur Specific [place] 05/31/18 05/31/18 05/31/18 06:30 08:50 08:50 Hgb 9.3 L MCV 78 L MCH 23 L MCHC 29 L RDW 19.8 H Plt Count 131 L Lymph % (Auto) [place] % (Auto) Lymph # [place] # Seg Neutrophils % Seg Neuts % (Manual) 98.0 H Lymphocytes % (Manual) 2.0 L Nucleated RBC % 1.0 H Seg Neutrophils # Man 8.4 H Lymphocytes # (Manual) 0.2 L D-Dimer POC ABG pH POC ABG pCO2 POC ABG pO2 Sodium 153 H D Chloride 117.4 H Carbon Dioxide BUN 18 H Creatinine 0.4 L Glucose 159 H POC Glucose 146 H Calcium 8.3 L Magnesium Albumin Triglycerides Ur Specific [place] 06/01/18 06/01/18 06/01/18 00:11 03:32 05:50 Hgb 9.8 L MCV 77 L MCH 23 L MCHC 29 L RDW 20.1 H Plt Count 122 L Lymph % (Auto) [place] % (Auto) Lymph # [place] # Seg Neutrophils % Seg Neuts % (Manual) Lymphocytes % (Manual) Nucleated RBC % Seg Neutrophils # Man Lymphocytes # (Manual) D-Dimer POC ABG pH 7.465 H POC ABG pCO2 POC ABG pO2 Sodium Chloride Carbon Dioxide BUN Creatinine Glucose POC Glucose 149 H Calcium Magnesium Albumin Triglycerides Ur Specific [place] 06/01/18 06/01/18 06/01/18 05:50 05:50 05:51 Hgb MCV MCH MCHC RDW Plt Count Lymph % (Auto) [place] % (Auto) Lymph # [place] # Seg Neutrophils % Seg Neuts % (Manual) Lymphocytes % (Manual) Nucleated RBC % Seg Neutrophils # Man Lymphocytes # (Manual) D-Dimer POC ABG pH POC ABG pCO2 POC ABG pO2 Sodium 152 H Chloride 113.7 H Carbon Dioxide BUN 18 H Creatinine 0.3 L Glucose 146 H POC Glucose 146 H Calcium Magnesium 2.40 H Albumin Triglycerides 214 H Ur Specific [place] 06/01/18 06/01/18 06/01/18 10:40 11:52 12:06 Hgb MCV MCH MCHC RDW Plt Count Lymph % (Auto) [place] % (Auto) Lymph # [place] # Seg Neutrophils % Seg Neuts % (Manual) Lymphocytes % (Manual) Nucleated RBC % Seg Neutrophils # Man Lymphocytes # (Manual) D-Dimer POC ABG pH POC ABG pCO2 48.4 H POC ABG pO2 Sodium Chloride Carbon Dioxide BUN Creatinine Glucose POC Glucose 147 H 138 H Calcium Magnesium Albumin Triglycerides Ur Specific [place] 06/01/18 06/02/18 06/02/18 18:08 00:39 04:11 Hgb MCV MCH MCHC RDW Plt Count Lymph % (Auto) [place] % (Auto) Lymph # [place] # Seg Neutrophils % Seg Neuts % (Manual) Lymphocytes % (Manual) Nucleated RBC % Seg Neutrophils # Man Lymphocytes # (Manual) D-Dimer POC ABG pH POC ABG pCO2 50.3 H POC ABG pO2 72 L Sodium Chloride Carbon Dioxide BUN Creatinine Glucose POC Glucose 156 H 156 H Calcium Magnesium Albumin Triglycerides Ur Specific [place] 06/02/18 06/02/18 06/02/18 05:16 07:47 07:47 Hgb 10.0 L MCV 77 L MCH 23 L MCHC 29 L RDW 18.8 H Plt Count 103 L Lymph % (Auto) [place] % (Auto) Lymph # [place] # Seg Neutrophils % Seg Neuts % (Manual) Lymphocytes % (Manual) Nucleated RBC % Seg Neutrophils # Man Lymphocytes # (Manual) D-Dimer POC ABG pH POC ABG pCO2 POC ABG pO2 Sodium 148 H Chloride 109.4 H Carbon Dioxide 32 H BUN 21 H Creatinine 0.3 L Glucose 137 H POC Glucose 150 H Calcium Magnesium Albumin Triglycerides Ur Specific [place] 06/02/18 06/02/18 06/02/18 11:46 17:51 19:58 Hgb MCV MCH MCHC RDW Plt Count Lymph % (Auto) [place] % (Auto) Lymph # [place] # Seg Neutrophils % Seg Neuts % (Manual) Lymphocytes % (Manual) Nucleated RBC % Seg Neutrophils # Man Lymphocytes # (Manual) D-Dimer POC ABG pH POC ABG pCO2 POC ABG pO2 Sodium Chloride Carbon Dioxide BUN Creatinine Glucose POC Glucose 150 H 135 H 131 H Calcium Magnesium Albumin Triglycerides Ur Specific [place] 06/03/18 06/03/18 06/03/18 04:28 04:59 04:59 Hgb MCV 76 L MCH 23 L MCHC RDW 19.1 H Plt Count 99 L Lymph % (Auto) [place] % (Auto) Lymph # [place] # Seg Neutrophils % Seg Neuts % (Manual) Lymphocytes % (Manual) Nucleated RBC % Seg Neutrophils # Man Lymphocytes # (Manual) D-Dimer POC ABG pH POC ABG pCO2 50.4 H POC ABG pO2 65 L Sodium Chloride Carbon Dioxide BUN 23 H Creatinine 0.3 L Glucose 167 H POC Glucose Calcium Magnesium Albumin Triglycerides Ur Specific [place] 06/03/18 06/03/18 06/03/18 05:17 12:20 17:28 Hgb MCV MCH MCHC RDW Plt Count Lymph % (Auto) [place] % (Auto) Lymph # [place] # Seg Neutrophils % Seg Neuts % (Manual) Lymphocytes % (Manual) Nucleated RBC % Seg Neutrophils # Man Lymphocytes # (Manual) D-Dimer POC ABG pH POC ABG pCO2 POC ABG pO2 Sodium Chloride Carbon Dioxide BUN Creatinine Glucose POC Glucose 153 H 155 H 135 H Calcium Magnesium Albumin Triglycerides Ur Specific [place] 06/03/18 06/04/18 06/04/18 23:23 04:37 05:15 Hgb MCV MCH MCHC RDW Plt Count Lymph % (Auto) [place] % (Auto) Lymph # [place] # Seg Neutrophils % Seg Neuts % (Manual) Lymphocytes % (Manual) Nucleated RBC % Seg Neutrophils # Man Lymphocytes # (Manual) D-Dimer POC ABG pH POC ABG pCO2 51.3 H POC ABG pO2 79 L Sodium Chloride Carbon Dioxide BUN Creatinine Glucose POC Glucose 145 H 140 H Calcium Magnesium Albumin Triglycerides Ur Specific [place] 06/04/18 06/04/18 06/05/18 11:47 17:22 01:13 Hgb MCV MCH MCHC RDW Plt Count Lymph % (Auto) [place] % (Auto) Lymph # [place] # Seg Neutrophils % Seg Neuts % (Manual) Lymphocytes % (Manual) Nucleated RBC % Seg Neutrophils # Man Lymphocytes # (Manual) D-Dimer POC ABG pH POC ABG pCO2 POC ABG pO2 Sodium Chloride Carbon Dioxide BUN Creatinine Glucose POC Glucose 158 H 131 H 137 H Calcium Magnesium Albumin Triglycerides Ur Specific [place] 06/05/18 06/05/18 06/05/18 04:10 06:33 11:41 Hgb MCV MCH MCHC RDW Plt Count Lymph % (Auto) [place] % (Auto) Lymph # [place] # Seg Neutrophils % Seg Neuts % (Manual) Lymphocytes % (Manual) Nucleated RBC % Seg Neutrophils # Man Lymphocytes # (Manual) D-Dimer POC ABG pH POC ABG pCO2 56.3 H POC ABG pO2 61 L Sodium Chloride Carbon Dioxide BUN Creatinine Glucose POC Glucose 136 H 150 H Calcium Magnesium Albumin Triglycerides Ur Specific [place] 06/05/18 06/05/18 06/05/18 15:27 19:49 22:44 Hgb MCV MCH MCHC RDW Plt Count Lymph % (Auto) [place] % (Auto) Lymph # [place] # Seg Neutrophils % Seg Neuts % (Manual) Lymphocytes % (Manual) Nucleated RBC % Seg Neutrophils # Man Lymphocytes # (Manual) D-Dimer POC ABG pH POC ABG pCO2 POC ABG pO2 Sodium Chloride Carbon Dioxide 36 H D BUN 25 H Creatinine 0.4 L Glucose 130 H POC Glucose 125 H 137 H Calcium Magnesium Albumin Triglycerides Ur Specific [place] 06/06/18 06/07/18 06/07/18 12:51 18:24 23:45 Hgb MCV MCH MCHC RDW Plt Count Lymph % (Auto) [place] % (Auto) Lymph # [place] # Seg Neutrophils % Seg Neuts % (Manual) Lymphocytes % (Manual) Nucleated RBC % Seg Neutrophils # Man Lymphocytes # (Manual) D-Dimer POC ABG pH POC ABG pCO2 POC ABG pO2 Sodium Chloride Carbon Dioxide BUN Creatinine Glucose POC Glucose 66 L 139 H 130 H Calcium Magnesium Albumin Triglycerides Ur Specific [place] 06/08/18 06/08/18 06/08/18 03:37 03:37 06:24 Hgb MCV 76 L MCH 24 L MCHC RDW 19.8 H Plt Count 103 L Lymph % (Auto) [place] % (Auto) Lymph # [place] # Seg Neutrophils % Seg Neuts % (Manual) Lymphocytes % (Manual) Nucleated RBC % Seg Neutrophils # Man Lymphocytes # (Manual) D-Dimer POC ABG pH POC ABG pCO2 POC ABG pO2 Sodium Chloride Carbon Dioxide BUN Creatinine 0.2 L Glucose 123 H POC Glucose 119 H Calcium 8.3 L Magnesium Albumin Triglycerides Ur Specific [place] Allied health notes reviewed: nursing
[2018-06-09] MEDS: HumaLOG SUB-Q SCH ×3 (06:50→17:07)
[2018-06-09] MEDS: LOPRESSOR IV SCH ×3 (06:54→12:38)
[2018-06-09] MEDS: PULMICORT IH SCH ×2 (07:18→19:46)
[2018-06-09] MEDS: BROVANA NEBU IH SCH ×2 (07:18→19:46)
[2018-06-09] MEDS: DUONEB *Not for PRN Use IH SCH ×2 (07:20→19:46)
[2018-06-09] MEDS: FREE WATER PO SCH ×2 (07:30→12:07)
[2018-06-09] MEDS: SODIUM CHLORIDE FLUSH SYRINGE 10 ML IV SCH ×3 (07:30→21:56)
[2018-06-09] MEDS: SOLU-Medrol IV SCH ×2 (07:31→09:44)
--- NOTE | 2018-06-09 08:08 | Progress Note ---
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 According to chart, pt has not been using her O2 and started hallucinating. She was intubated in the ED. She was also hypotensive in the ED and started on Vasopressor/Levophed * CTA chest IMPRESSION: 1. Study degraded by artifact created by retained hardware in the thoracic spine and by motion artifact. 2. No evidence of central pulmonary artery emboli. However, segmental pulmonary artery emboli could be missed or overcalled due to significant artifact. 3. Complete consolidation left lower lobe with air bronchograms and volume loss consistent with atelectasis. There appears to be opacification of a portion of the left lower lobe bronchus. 4. Tip of the endotracheal tube projected in satisfactory position. 5. Cardiomegaly. 6. IVC filter. 7. Prominent kyphosis of the thoracic spine with extensive instrumentation with retained hardware. * Abdominal 1 view XRAY IMPRESSION: Nasogastric tube is terminating in the stomach. Mild degree left pleural effusion * pCXR FINDINGS: Heart: Prominent cardiac silhouette. Mediastinum/Vessels: Prominent central vessels. Lungs/Pleural space: Left lung base airspace consolidation. Bony thorax: No acute osseous abnormality. Life support devices: The endotracheal tube tip is obscured by hardware in the thoracic spine, but likely projects approximately 4 cm superior to the carlos manuel. IMPRESSION: Prominent cardiac silhouette. Left lung base airspace consolidatio n --Sinus Tachycaedia: beta blockers and supportive care -AMS with Acute encephalopathy, prior records show a long history of similar presentations and PCP toxicity: UDS is negative, Still very lathergic, will obtain Consultation with Mental Health -Acute on chronic combined respiratory failure s/p ETT MV: Now extubated -Severe AE COPD: treat with iv steriods continue taper, abx, nebs around the clock -Hypotension due to circulatory shock possible septic shock from LLL pneumonia: off Vasopressor. Resolved -Septic Shock suspected LLL Pseudomonas/E.coli pneumonia: treat with ivf, abx, ID following, trachea aspirate growing Gram negative==> PSA resistant to Aztreonam/zosyn/cefepime/fortaz but sensitive to cipro/gent/levaquin/tobramycin; E. coli has not resistant, changed antibiotics to Levaquin and Gentamicin on Friday. Gentamincine stopped. OFF Vasopressor since Friday. Sputum culture positive for Pseudomonas/Escherichia coli -DVT prophylaxis: sq Lovenox -Acute thrombocytopenia: Lovenox discontinued, awaiting HIT, SCD -Disposition: Transfer to Telemetry full code Patient's condition and treatment plan discussed in detail with the patient and her nurse No telemetry beds available, will be transferred to medical floor with remote telemetry History Interval history: Patient seen and examined this morning medical records reviewed No new events reported by the nursing Awaiting transfer to telemetry floor Patient feels better slightly confused On Ventimask saturating 96-97% Alert and awake not in acute distress Vital signs noted Hospitalist Physical - Constitutional Vitals: Temp Pulse Resp BP Pulse Ox 98.8 F 90 30 H 136/67 98 06/09/18 07:49 06/09/18 07:30 06/09/18 07:30 06/09/18 07:30 06/09/18 07:30 General appearance: Present: no acute distress, well-nourished, obese, other (on Ventimask) - EENT Eyes: Present: PERRL, EOM intact - Neck Neck: Present: supple, normal ROM - Respiratory Respiratory effort: normal Respiratory: bilateral: diminished, rhonchi, negative: rales, wheezing - Cardiovascular Rhythm: regular Heart Sounds: Present: S1 & S2 - Extremities Extremities: no ischemia, No edema - Abdominal General gastrointestinal: soft, non-tender, non-distended, normal bowel sounds - Integumentary Integumentary: Present: clear, warm - Psychiatric Psychiatric: appropriate mood/affect, cooperative - Neurologic Neurologic: CNII-XII intact, moves all extremities Results - Labs CBC & Chem 7: 06/08/18 03:37 06/08/18 03:37 Labs: Laboratory Last Values WBC 10.2 K/mm3 (4.5-11.0) 06/08/18 03:37 RBC 4.27 M/mm3 (3.65-5.03) 06/08/18 03:37 Hgb 10.1 gm/dl (10.1-14.3) 06/08/18 03:37 Hct 32.4 % (30.3-42.9) 06/08/18 03:37 MCV 76 fl (79-97) L 06/08/18 03:37 MCH 24 pg (28-32) L 06/08/18 03:37 MCHC 31 % (30-34) 06/08/18 03:37 RDW 19.8 % (13.2-15.2) H 06/08/18 03:37 Plt Count 103 K/mm3 (140-440) L 06/08/18 03:37 Lymph % (Auto) 8.5 % (13.4-35.0) L 05/28/18 13:13 [place] % (Auto) 11.3 % (0.0-7.3) H 05/28/18 13:13 Eos % (Auto) 0.0 % (0.0-4.3) 05/28/18 13:13 Baso % (Auto) 0.4 % (0.0-1.8) 05/28/18 13:13 Lymph # 0.8 K/mm3 (1.2-5.4) L 05/28/18 13:13 [place] # 1.1 K/mm3 (0.0-0.8) H 05/28/18 13:13 Eos # 0.0 K/mm3 (0.0-0.4) 05/28/18 13:13 Baso # 0.0 K/mm3 (0.0-0.1) 05/28/18 13:13 Add Manual Diff Complete 05/31/18 08:50 Total Counted 100 05/31/18 08:50 Seg Neutrophils % Teacher Hearing Impaired 05/31/18 08:50 Seg Neuts % (Manual) 98.0 % (40.0-70.0) H 05/31/18 08:50 Band Neutrophils % 0 % 05/31/18 08:50 Lymphocytes % (Manual) 2.0 % (13.4-35.0) L 05/31/18 08:50 Reactive Lymphs % (Man) 0 % 05/31/18 08:50 Monocytes % (Manual) 0 % (0.0-7.3) 05/31/18 08:50 Eosinophils % (Manual) 0 % (0.0-4.3) 05/31/18 08:50 Basophils % (Manual) 0 % (0.0-1.8) 05/31/18 08:50 Metamyelocytes % 0 % 05/31/18 08:50 Myelocytes % 0 % 05/31/18 08:50 Promyelocytes % 0 % 05/31/18 08:50 Blast Cells % 0 % 05/31/18 08:50 Nucleated RBC % 1.0 % (0.0-0.9) H 05/31/18 08:50 Seg Neutrophils # 7.7 K/mm3 (1.8-7.7) 05/28/18 13:13 Seg Neutrophils # Man 8.4 K/mm3 (1.8-7.7) H 05/31/18 08:50 Band Neutrophils # 0.0 K/mm3 05/31/18 08:50 Lymphocytes # (Manual) 0.2 K/mm3 (1.2-5.4) L 05/31/18 08:50 Abs React Lymphs (Man) 0.0 K/mm3 05/31/18 08:50 Monocytes # (Manual) 0.0 K/mm3 (0.0-0.8) 05/31/18 08:50 Eosinophils # (Manual) 0.0 K/mm3 (0.0-0.4) 05/31/18 08:50 Basophils # (Manual) 0.0 K/mm3 (0.0-0.1) 05/31/18 08:50 Metamyelocytes # 0.0 K/mm3 05/31/18 08:50 Myelocytes # 0.0 K/mm3 05/31/18 08:50 Promyelocytes # 0.0 K/mm3 05/31/18 08:50 Blast Cells # 0.0 K/mm3 05/31/18 08:50 WBC Morphology Not Reportable 05/31/18 08:50 Hypersegmented Neuts Not Reportable 05/31/18 08:50 Hyposegmented Neuts Not Reportable 05/31/18 08:50 Hypogranular Neuts Not Reportable 05/31/18 08:50 Smudge Cells Not Reportable 05/31/18 08:50 Toxic Granulation Not Reportable 05/31/18 08:50 Toxic Vacuolation Not Reportable 05/31/18 08:50 Dohle Bodies Not Reportable 05/31/18 08:50 Pelger-Huet Anomaly Not Reportable 05/31/18 08:50 Neha Rods Not Reportable 05/31/18 08:50 Platelet Estimate Consistent w auto 05/31/18 08:50 Clumped Platelets Not Reportable 05/31/18 08:50 Plt Clumps, EDTA Not Reportable 05/31/18 08:50 Large Platelets Not Reportable 05/31/18 08:50 Giant Platelets Not Reportable 05/31/18 08:50 Platelet Satelliting Not Reportable 05/31/18 08:50 Plt Morphology Comment Not Reportable 05/31/18 08:50 RBC Morphology Not Reportable 05/31/18 08:50 Dimorphic RBCs Not Reportable 05/31/18 08:50 Polychromasia Few 05/31/18 08:50 Hypochromasia Few 05/31/18 08:50 Poikilocytosis Not Reportable 05/31/18 08:50 Anisocytosis Not Reportable 05/31/18 08:50 Microcytosis Not Reportable 05/31/18 08:50 Macrocytosis Not Reportable 05/31/18 08:50 Spherocytes Not Reportable 05/31/18 08:50 Pappenheimer Bodies Not Reportable 05/31/18 08:50 Sickle Cells Not Reportable 05/31/18 08:50 Target Cells Not Reportable 05/31/18 08:50 Tear Drop Cells Not Reportable 05/31/18 08:50 Ovalocytes Not Reportable 05/31/18 08:50 Stomatocytes Rare 05/31/18 08:50 Helmet Cells Not Reportable 05/31/18 08:50 [place] Bodies Not Reportable 05/31/18 08:50 [place] Rings Not Reportable 05/31/18 08:50 Damien Cells Not Reportable 05/31/18 08:50 Bite Cells Not Reportable 05/31/18 08:50 Crenated Cell Not Reportable 05/31/18 08:50 Elliptocytes Not Reportable 05/31/18 08:50 Acanthocytes (Spur) Not Reportable 05/31/18 08:50 Rouleaux Not Reportable 05/31/18 08:50 Hemoglobin C Crystals Not Reportable 05/31/18 08:50 Schistocytes Not Reportable 05/31/18 08:50 Malaria parasites Not Reportable 05/31/18 08:50 Hernan Bodies Not Reportable 05/31/18 08:50 Hem Pathologist Commnt No 05/31/18 08:50 D-Dimer 1062.49 ng/mlDDU (0-234) H 05/28/18 13:13 Heparin Anti-Xa, Unfract Negative (Negative) 06/03/18 10:55 POC ABG pH 7.384 (7.35-7.45) 06/05/18 04:10 POC ABG pCO2 56.3 (35-45) H 06/05/18 04:10 POC ABG pO2 61 (80-105) L 06/05/18 04:10 POC ABG HCO3 33.6 (22-26 mml/L) 06/05/18 04:10 POC ABG Total CO2 35 (23-27mmol/L) 06/05/18 04:10 POC ABG O2 Sat 90 06/05/18 04:10 POC ABG Base Excess 9 ((-2) - (+3)mmol/L) 06/05/18 04:10 FiO2 45 % 06/05/18 04:10 Sodium 139 mmol/L (137-145) 06/08/18 03:37 Potassium 4.0 mmol/L (3.6-5.0) 06/08/18 03:37 Chloride 100.6 mmol/L (98-107) 06/08/18 03:37 Carbon Dioxide 29 mmol/L (22-30) D 06/08/18 03:37 Anion Gap 13 mmol/L 06/08/18 03:37 BUN 11 mg/dL (7-17) 06/08/18 03:37 Creatinine 0.2 mg/dL (0.7-1.2) L 06/08/18 03:37 Estimated GFR > 60 ml/min 06/08/18 03:37 BUN/Creatinine Ratio 55 % 06/08/18 03:37 Glucose 123 mg/dL (65-100) H 06/08/18 03:37 POC Glucose 97 (70-105) 06/09/18 06:34 Lactic Acid 0.90 mmol/L (0.7-2.0) 05/28/18 14:50 Calcium 8.3 mg/dL (8.4-10.2) L 06/08/18 03:37 Magnesium 2.40 mg/dL (1.7-2.3) H 06/01/18 05:50 Total Bilirubin 0.30 mg/dL (0.1-1.2) 05/28/18 13:13 AST 23 units/L (5-40) 05/28/18 13:13 ALT 11 units/L (7-56) 05/28/18 13:13 Alkaline Phosphatase 96 units/L (35-129) 05/28/18 13:13 Troponin T < 0.010 ng/mL (0.00-0.029) 05/28/18 13:13 Total Protein 6.6 g/dL (6.3-8.2) 05/28/18 13:13 Albumin 3.5 g/dL (3.9-5) L 05/28/18 13:13 Albumin/Globulin Ratio 1.1 % 05/28/18 13:13 Triglycerides 214 mg/dL (2-149) H 06/01/18 05:50 Urine Color Yellow (Yellow) 05/28/18 17:57 Urine Turbidity Clear (Clear) 05/28/18 17:57 Urine pH 6.0 (5.0-7.0) 05/28/18 17:57 Ur Specific [place] > 1.030 (1.003-1.030) H 05/28/18 17:57 Urine Protein 100 mg/dl mg/dL (Negative) 05/28/18 17:57 Urine Glucose (UA) Neg mg/dL (Negative) 05/28/18 17:57 Urine Ketones 20 mg/dL (Negative) 05/28/18 17:57 Urine Blood Sm (Negative) 05/28/18 17:57 Urine Nitrite Neg (Negative) 05/28/18 17:57 Urine Bilirubin Neg (Negative) 05/28/18 17:57 Urine Urobilinogen 2.0 mg/dL (<2.0) 05/28/18 17:57 Ur Leukocyte Esterase Neg (Negative) 05/28/18 17:57 Urine WBC (Auto) 1.0 /HPF (0.0-6.0) 05/28/18 17:57 Urine RBC (Auto) 2.0 /HPF (0.0-6.0) 05/28/18 17:57 U Epithel Cells (Auto) < 1.0 /HPF (0-13.0) 04/11/19 17:57 Urine Mucus Few /HPF 05/28/18 17:57 Random Gentamicin 0.4 ug/mL (0.0-10.0) 06/01/18 05:50 Vancomycin Trough 7.2 ug/mL (5.0-20.0) 05/31/18 09:39 Urine Opiates Screen Presumptive negative 05/29/18 23:50 Urine Methadone Screen Presumptive negative 05/29/18 23:50 Ur Barbiturates Screen Presumptive negative 05/29/18 23:50 Ur Phencyclidine Scrn Presumptive negative 05/29/18 23:50 Ur Amphetamines Screen Presumptive negative 05/29/18 23:50 U Benzodiazepines Scrn Presumptive negative 05/29/18 23:50 Urine Cocaine Screen Presumptive negative 05/29/18 23:50 U Marijuana (THC) Screen Presumptive negative 05/29/18 23:50 Drugs of Abuse Note Disclamer 05/29/18 23:50 Heparin-induced Plt Ab Negative (Negative) 06/03/18 10:55 UF Heparin High Dose 0 % Release 06/03/18 10:55 ESSIE UFH Low Dose 0.1 0 % Release 06/03/18 10:55 ESSIE UFH Low Dose 0.5 0 % Release 06/03/18 10:55 Active Medications - Current Medications Current Medications: Generic Name Dose Route Start Last Admin Trade Name Freq PRN Reason Stop Dose Admin Acetaminophen 650 mg 05/31/18 09:02 05/31/18 09:26 Tylenol FEEDTUBE 650 mg Q6H PRN Administration Non Cardiac Pain or Temp>100.5 Albuterol/Ipratropium 1 ampul 06/04/18 20:00 06/09/18 07:20 Duoneb *Not For Prn Use* IH Not Given BIDRT [facility] Amlodipine Besylate 10 mg 05/29/18 10:00 06/08/18 09:08 Norvasc PO 10 mg DAILY DOMINICK Administration Lipase/Protease/Amylase 1 each 05/28/18 22:45 Pancrejohanne Pereira 10,500 Unit FEEDTUBE PRN PRN For Clogged Feeding Tube Arformoterol Tartrate 15 mcg 06/04/18 20:00 06/09/18 07:18 Brovana Nebu IH 15 mcg Q12HRT DOMINICK Administration Baclofen 10 mg 05/28/18 23:00 06/08/18 21:20 Lioresal PO 10 mg BID DOMINICK Administration Budesonide 0.5 mg 05/28/18 22:45 06/09/18 07:18 Pulmicort IH 0.5 mg Q12HRT DOMINICK Administration Buspirone HCl 5 mg 05/28/18 23:00 06/08/18 21:21 Buspar PO 5 mg BID DOMINICK Administration Levofloxacin/Dextrose 750 mg in 150 mls @ 100 mls/hr 05/31/18 11:00 06/08/18 11:30 Levaquin 750mg/150ml IV 06/09/18 11:29 Infused Q24HR [facility] Infusion Protocol Insulin Human Lispro 0 unit 06/01/18 10:00 06/09/18 06:50 Humalog SUB-Q Not Given Q6HR [facility] Protocol Lansoprazole 30 mg 05/30/18 10:00 06/08/18 09:06 Prevacid Solutab FEEDTUBE 30 mg QDAY DOMINICK Administration Lisinopril 10 mg 05/29/18 10:00 06/08/18 09:07 Zestril PO 10 mg QDAY DOMINICK Administration Lorazepam 2 mg 05/31/18 08:39 06/07/18 11:23 Ativan IV 2 mg Q1H PRN Administration CIWA-Ar 8-15 Lorazepam 4 mg 05/31/18 08:39 06/08/18 20:53 Ativan IV 4 mg Q1H PRN Administration CIWA-Ar 16-25 Lorazepam 4 mg 05/31/18 08:39 06/05/18 20:00 Ativan IV 4 mg Q15MIN PRN Administration CIWA-Ar >25 Methylprednisolone Sodium Succinate 40 mg 06/08/18 22:00 06/08/18 21:21 Solu-Medrol IV 40 mg Q12HR DOMINICK Administration Metoprolol Tartrate 2.5 mg 06/06/18 12:00 06/09/18 06:55 Lopressor IV 2.5 mg Q6HR DOMINICK Administration Quetiapine Fumarate 100 mg 06/09/18 10:00 Seroquel PO 06/09/18 22:01 BID DOMINICK Quetiapine Fumarate 50 mg 06/10/18 10:00 Seroquel PO 06/10/18 22:01 BID DOMINICK Simple Syrup 15 ml 05/28/18 22:45 06/06/18 12:00 Simple Syrup FEEDTUBE 15 ml PRN PRN Administration Hypoglycemia Simple Syrup 30 ml 05/28/18 22:45 Simple Syrup FEEDTUBE PRN PRN Hypoglycemia Sodium Bicarbonate 325 mg 05/28/18 22:45 06/07/18 23:48 Sodium Bicarbonate FEEDTUBE 325 mg PRN PRN Administration For Clogged Feeding Tube Sodium Chloride 10 ml 05/29/18 10:00 06/09/18 07:30 Sodium Chloride Flush Syringe 10 Ml IV Not Given BID DOMINICK Sodium Chloride 10 ml 05/28/18 22:45 06/06/18 05:50 Sodium Chloride Flush Syringe 10 Ml IV 10 ml PRN PRN Administration LINE FLUSH Nutrition/Malnutrition Assess - Dietary Evaluation Nutrition/Malnutrition Findings: Nutrition Notes Start: 05/29/18 09:3 2 Freq: Status: Active Protocol: Document 06/05/18 10:49 TW (Rec: 06/05/18 11:02 TW [id number]) Co-Sign 06/05/18 10:49 LP Nutrition Notes Initial or Follow up Reassessment Current Diagnosis COPD,Hypertension,Respiratory Failure Other Pertinent Diagnosis COPD exacerbation, End-stage lung Dz Current Diet Vital High Protein at 45mL/hr Labs/Tests reviewed Pertinent Medications Propofol at 5.052mL/hr ( provides 133 lipid kcal) Solumedrol Levophed gtt Lasix Height 5 ft Weight 93.5 kg [place] Body Weight (kg) 45.45 BMI 40.2 Weight Status Obese Subjective/Other Information F/U for stable TF. Noted TF not running since 8:00 am. TF will continue to be held for extubation. TF will continue to goal after procedure. As discussed in interdisciplinary rounds, pt jose have diet advanced if okayed by DORMITORY COUNSELOR. Burn Absent Trauma Absent #1 Nutrition Diagnosis Inadequate oral intake Diagnosis Progress(for reassessment Continues documentation) Is patient on ventilator? Yes Is Patient Ambulatory and/or Out of Bed No REE-([facility]-confined to bed) 1716.444 Kcal/Kg value to use for calculation 14 Approximate Energy Requirements Using 1309 kcal/Kg Calculation Used for Recommendations Kcal/kg Additional Notes Pro needs 2g/kg IBW: 91g/day Fluid needs 1ml/kcal Nutrition Intervention Change Diet Order: Advance when medically feasible Nutrition Support: Continue Vital High Protein at 50mL/hr. Flush for hypernatermia per MD at this time until hypernatermia resolved then 50mL q4h Kcal 1,200 Protein (gm) 105 Fluid (mL) 1,003 Goal #1 TF tolerance Goal #2 TF to meet 80-100% energy and protein needs Goal #3 diet advancement Anticipated Discharge Needs: Unable to identify at this time Follow-Up By: 06/09/18 Additional Comments F/U: stable TF post-extubation / possible diet advancement
[2018-06-09] MEDS: BUSPAR PO SCH ×2 (09:44→21:55)
[2018-06-09] MEDS: LEVAQUIN 750MG/150ML 750 MG/150 ML BAG IV SCH (09:44)
[2018-06-09] MEDS: LIORESAL PO SCH ×2 (09:44→21:55)
[2018-06-09] MEDS: PREVACID SOLUTAB FEEDTUBE SCH (09:45)
[2018-06-09] MEDS: ZESTRIL PO SCH (09:45)
[2018-06-09] MEDS: NORVASC PO SCH (09:45)
--- NOTE | 2018-06-09 10:16 | Progress Note ---
Assessment and Plan Cultures: 05/28/2018 blood culture: no growth 05/28/2018 Resp culture: E. coli, Pseudomonas aeruginosa 05/31/2018 blood culture: no growth A/P: 58-year-old female with COPD with chronic respiratory failure on home oxygen admitted with shortness of breath and confusion: 1) Septic shock: resolved, off pressors, fever resolved for 5 days; likely secondary to left lower lobe pneumonia requiring mechanical ventilation. Cultures growing resistant Pseudomonas, susceptible E.coli. On abx. 2) Acute on chronic respiratory failure with underlying COPD: On mechanical ventilation now on BIPAP 3) Acute encephalopathy: likely metabolic. Improving. 4) Spinal hardware noted on imaging, no concern for infection at present. 5) Oral candidisis Recs: stop Levofloxacin Day 10 of 10 after today's dose add fluconazole 100 mg PO qday x 5 days for oral candidiasis Discussed with pharmacy Will follow Mirtha Hariston MD Infectious Diseases Modeling Analyst [facility] [id number] [phone] O [phone] Subjective Date of service: 06/09/18 Principal diagnosis: Septic Shock (? LLL pneumonia); Ac on Ch hypoxic-hypercap dionicio Resp failure Interval history: Alert talking unclear speech, wants to be reposition in bed, following commands. No fever for over 5 days. ROS: unable to obtain. Objective - Exam Narrative Exam: General appearance: Alert in NAD on Mask O2 Eyes: anicteric sclerae, moist conjunctivae; no lid-lag; PERRLA HENT: Atraumatic; oropharynx +thrush Neck: Trachea midline; supple, no thyromegaly or lymphadenopathy Lungs: CTA emma CV: RRR, Abdomen: Soft, non-tender; no masses or hepatosplenomegaly Extremities: No peripheral edema or extremity lymphadenopathy Skin: Normal temperature, turgor and texture; no rash, ulcers or subcutaneous nodules Psych: alert follows commands - Constitutional Vitals: Vital Signs Temp Pulse Resp BP Pulse Ox 98.8 F 100 H 29 H 131/89 99 06/09/18 07:49 06/09/18 10:10 06/09/18 10:10 06/09/18 10:10 06/09/18 10:10 Temperature -Last 24 Hours Temperature 98.8 F Temperature 97.9 F Temperature 98.6 F Temperature 99.8 F Temperature 98.4 F Temperature 98.8 F - Labs CBC & Chem 7: 06/08/18 03:37 06/08/18 03:37 Labs: Abnormal lab results 06/08/18 Range/Units 23:26 POC Glucose 106 H (70-105)
[2018-06-09] MEDS: DIFLUCAN PO SCH (12:38)
--- NOTE | 2018-06-09 13:27 | Progress Note ---
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 - continue scheduled duonebs bid - continue seroquel at 300 mg bid - continue brovana & pulmicort - PT/OT to increase ambulation - bilateral lower extremity dopplers negative for DVT - continue to wean supplemental oxygen to keep O2 sats 90% - prn ABGs/CXR at this point - complete empiric antibiotics for aspiration PNA - continue Stress ulcer prophylaxis - continue VTE prophylaxis - continue systemic steroids with slow taper - resume chronic home medications per attending - continue accuchecks with glycemic control for target glucose of 140-180 mg/dL - Continue bronchodilators with pulmonary hygiene per RT - continue maintenance of sleep -wake cycle - continue mobility as tolerated by hemodynamics - Influenza and pneumonia vaccination addressed per protocol ..... care plan discussed at length with RN/RT during rounds PROGNOSIS fair CODE STATUS: FULL CODE Subjective Date of service: 06/09/18 Principal diagnosis: Septic Shock (? LLL pneumonia); Ac on Ch hypoxic- hypercapnic Resp failure Interval history: Patient is seen today for: Septic Shock suspected LLL pneumonia, SOFA score > 2; Acute on chronic combined( hypoxic-hypercapnic) respiratory failure s/p ETT MVS; Severe AE COPD; AMS with Acute encephalopathy; Macrocytosis Seen and examined at bedside; 24hour events reviewed; nursing and respiratory care staff consulted; no adverse overnight events reported to me; resting peacefully in bed; remains on supplemental oxygen; no hemodynamic decompe nsation; denies acute chest pains or palpitations Objective Vital Signs - 12hr 06/09/18 06/09/18 06/09/18 01:31 01:41 01:51 Temperature Pulse Rate 92 H 101 H 101 H Pulse Rate [ Anterior Bilateral Throughout] Pulse Rate [ Anterior Bilateral] Pulse Rate [ From Monitor] Respiratory 25 H 18 31 H Rate Respiratory Rate [Anterior Bilateral Throughout] Respiratory Rate [Anterior Bilateral] Blood Pressure 106/60 106/60 106/60 O2 Sat by Pulse 94 94 96 Oximetry 06/09/18 06/09/18 06/09/18 02:00 02:11 02:20 Temperature Pulse Rate 107 H 102 H 98 H Pulse Rate [ Anterior Bilateral Throughout] Pulse Rate [ Anterior Bilateral] Pulse Rate [ 98 H From Monitor] Respiratory 25 H 29 H 26 H Rate Respiratory Rate [Anterior Bilateral Throughout] Respiratory Rate [Anterior Bilateral] Blood Pressure 97/67 97/67 97/67 O2 Sat by Pulse 94 96 95 Oximetry 06/09/18 06/09/18 06/09/18 02:31 02:40 02:51 Temperature Pulse Rate 100 H 106 H 102 H Pulse Rate [ Anterior Bilateral Throughout] Pulse Rate [ Anterior Bilateral] Pulse Rate [ From Monitor] Respiratory 31 H 30 H 23 Rate Respiratory Rate [Anterior Bilateral Throughout] Respiratory Rate [Anterior Bilateral] Blood Pressure 97/67 97/67 97/67 O2 Sat by Pulse 97 94 98 Oximetry 06/09/18 06/09/18 06/09/18 03:07 03:10 03:20 Temperature Pulse Rate 99 H 95 H 96 H Pulse Rate [ Anterior Bilateral Throughout] Pulse Rate [ Anterior Bilateral] Pulse Rate [ From Monitor] Respiratory 19 34 H 21 Rate Respiratory Rate [Anterior Bilateral Throughout] Respiratory Rate [Anterior Bilateral] Blood Pressure 124/62 O2 Sat by Pulse 96 97 97 Oximetry 06/09/18 06/09/18 06/09/18 03:30 03:40 03:50 Temperature Pulse Rate 95 H 103 H 100 H Pulse Rate [ Anterior Bilateral Throughout] Pulse Rate [ Anterior Bilateral] Pulse Rate [ From Monitor] Respiratory 29 H 23 29 H Rate Respiratory Rate [Anterior Bilateral Throughout] Respiratory Rate [Anterior Bilateral] Blood Pressure 124/62 124/62 124/62 O2 Sat by Pulse 97 97 97 Oximetry 06/09/18 06/09/18 06/09/18 04:00 04:10 04:20 Temperature 97.9 F Pulse Rate 96 H 95 H 100 H Pulse Rate [ Anterior Bilateral Throughout] Pulse Rate [ Anterior Bilateral] Pulse Rate [ From Monitor] Respiratory 22 25 H 26 H Rate Respiratory Rate [Anterior Bilateral Throughout] Respiratory Rate [Anterior Bilateral] Blood Pressure 112/62 112/62 112/62 O2 Sat by Pulse 100 97 98 Oximetry 06/09/18 06/09/18 06/09/18 04:30 04:40 04:50 Temperature Pulse Rate 109 H 101 H 99 H Pulse Rate [ Anterior Bilateral Throughout] Pulse Rate [ Anterior Bilateral] Pulse Rate [ From Monitor] Respiratory 24 23 26 H Rate Respiratory Rate [Anterior Bilateral Throughout] Respiratory Rate [Anterior Bilateral] Blood Pressure 112/62 112/62 112/62 O2 Sat by Pulse 99 98 98 Oximetry 06/09/18 06/09/18 06/09/18 05:00 05:10 05:20 Temperature Pulse Rate 105 H 99 H 97 H Pulse Rate [ Anterior Bilateral Throughout] Pulse Rate [ Anterior Bilateral] Pulse Rate [ From Monitor] Respiratory 26 H 29 H 20 Rate Respiratory Rate [Anterior Bilateral Throughout] Respiratory Rate [Anterior Bilateral] Blood Pressure 112/62 117/63 117/63 O2 Sat by Pulse 98 98 Oximetry 06/09/18 06/09/18 06/09/18 05:30 05:40 05:50 Temperature Pulse Rate 97 H 92 H 100 H Pulse Rate [ Anterior Bilateral Throughout] Pulse Rate [ Anterior Bilateral] Pulse Rate [ From Monitor] Respiratory 24 32 H 30 H Rate Respiratory Rate [Anterior Bilateral Throughout] Respiratory Rate [Anterior Bilateral] Blood Pressure 117/63 117/63 117/63 O2 Sat by Pulse 99 98 Oximetry 06/09/18 06/09/18 06/09/18 06:00 06:10 06:20 Temperature Pulse Rate 102 H 101 H 102 H Pulse Rate [ Anterior Bilateral Throughout] Pulse Rate [ Anterior Bilateral] Pulse Rate [ 104 H From Monitor] Respiratory 20 17 17 Rate Respiratory Rate [Anterior Bilateral Throughout] Respiratory Rate [Anterior Bilateral] Blood Pressure 130/75 130/75 130/75 O2 Sat by Pulse 100 99 100 Oximetry 06/09/18 06/09/18 06/09/18 06:30 06:40 06:50 Temperature Pulse Rate 102 H 106 H 109 H Pulse Rate [ Anterior Bilateral Throughout] Pulse Rate [ Anterior Bilateral] Pulse Rate [ From Monitor] Respiratory 29 H 24 20 Rate Respiratory Rate [Anterior Bilateral Throughout] Respiratory Rate [Anterior Bilateral] Blood Pressure 130/75 130/75 130/75 O2 Sat by Pulse 97 99 97 Oximetry 06/09/18 06/09/18 06/09/18 06:54 06:55 07:00 Temperature Pulse Rate 106 H 101 H 87 Pulse Rate [ Anterior Bilateral Throughout] Pulse Rate [ Anterior Bilateral] Pulse Rate [ From Monitor] Respiratory 28 H Rate Respiratory Rate [Anterior Bilateral Throughout] Respiratory Rate [Anterior Bilateral] Blood Pressure 126/78 130/75 130/75 O2 Sat by Pulse 98 Oximetry 06/09/18 06/09/18 06/09/18 07:10 07:20 07:21 Temperature Pulse Rate 84 93 H Pulse Rate [ 89 Anterior Bilateral Throughout] Pulse Rate [ 91 H Anterior Bilateral] Pulse Rate [ From Monitor] Respiratory 26 H 21 Rate Respiratory 24 Rate [Anterior Bilateral Throughout] Respiratory 24 Rate [Anterior Bilateral] Blood Pressure 136/67 136/67 O2 Sat by Pulse 99 97 97 Oximetry 06/09/18 06/09/18 06/09/18 07:30 07:40 07:49 Temperature 98.8 F Pulse Rate 90 99 H Pulse Rate [ Anterior Bilateral Throughout] Pulse Rate [ Anterior Bilateral] Pulse Rate [ From Monitor] Respiratory 30 H 28 H Rate Respiratory Rate [Anterior Bilateral Throughout] Respiratory Rate [Anterior Bilateral] Blood Pressure 136/67 136/67 O2 Sat by Pulse 98 98 Oximetry 06/09/18 06/09/18 06/09/18 07:50 08:00 08:10 Temperature Pulse Rate 94 H 97 H 92 H Pulse Rate [ Anterior Bilateral Throughout] Pulse Rate [ Anterior Bilateral] Pulse Rate [ From Monitor] Respiratory 36 H 25 H 30 H Rate Respiratory Rate [Anterior Bilateral Throughout] Respiratory Rate [Anterior Bilateral] Blood Pressure 136/67 128/60 128/60 O2 Sat by Pulse 98 97 98 Oximetry 06/09/18 06/09/18 06/09/18 08:20 08:30 08:40 Temperature Pulse Rate 89 88 93 H Pulse Rate [ Anterior Bilateral Throughout] Pulse Rate [ Anterior Bilateral] Pulse Rate [ From Monitor] Respiratory 32 H 32 H 34 H Rate Respiratory Rate [Anterior Bilateral Throughout] Respiratory Rate [Anterior Bilateral] Blood Pressure 128/60 128/60 128/60 O2 Sat by Pulse 99 99 99 Oximetry 06/09/18 06/09/18 06/09/18 08:50 09:00 09:10 Temperature Pulse Rate 99 H 99 H 97 H Pulse Rate [ Anterior Bilateral Throughout] Pulse Rate [ Anterior Bilateral] Pulse Rate [ 96 H From Monitor] Respiratory 33 H 28 H 34 H Rate Respiratory Rate [Anterior Bilateral Throughout] Respiratory Rate [Anterior Bilateral] Blood Pressure 128/60 141/81 141/81 O2 Sat by Pulse 93 97 89 Oximetry 06/09/18 06/09/18 06/09/18 09:20 09:30 09:40 Temperature Pulse Rate 97 H 96 H 94 H Pulse Rate [ Anterior Bilateral Throughout] Pulse Rate [ Anterior Bilateral] Pulse Rate [ From Monitor] Respiratory 31 H 32 H 29 H Rate Respiratory Rate [Anterior Bilateral Throughout] Respiratory Rate [Anterior Bilateral] Blood Pressure 141/81 141/81 141/81 O2 Sat by Pulse 91 87 87 Oximetry 06/09/18 06/09/18 06/09/18 09:45 09:50 10:00 Temperature Pulse Rate 92 H 91 H 94 H Pulse Rate [ Anterior Bilateral Throughout] Pulse Rate [ Anterior Bilateral] Pulse Rate [ From Monitor] Respiratory 29 H 35 H Rate Respiratory Rate [Anterior Bilateral Throughout] Respiratory Rate [Anterior Bilateral] Blood Pressure 141/81 141/81 131/89 O2 Sat by Pulse 99 100 Oximetry 06/09/18 06/09/18 06/09/18 10:10 10:20 10:30 Temperature Pulse Rate 100 H 102 H 105 H Pulse Rate [ Anterior Bilateral Throughout] Pulse Rate [ Anterior Bilateral] Pulse Rate [ From Monitor] Respiratory 29 H 27 H 29 H Rate Respiratory Rate [Anterior Bilateral Throughout] Respiratory Rate [Anterior Bilateral] Blood Pressure 131/89 131/89 131/89 O2 Sat by Pulse 99 95 96 Oximetry 06/09/18 06/09/18 06/09/18 10:40 10:50 11:00 Temperature Pulse Rate 112 H 109 H 111 H Pulse Rate [ Anterior Bilateral Throughout] Pulse Rate [ Anterior Bilateral] Pulse Rate [ From Monitor] Respiratory 32 H 34 H 34 H Rate Respiratory Rate [Anterior Bilateral Throughout] Respiratory Rate [Anterior Bilateral] Blood Pressure 131/89 131/89 131/89 O2 Sat by Pulse 96 95 94 Oximetry 06/09/18 06/09/18 06/09/18 11:10 11:20 11:30 Temperature Pulse Rate 113 H 109 H 111 H Pulse Rate [ Anterior Bilateral Throughout] Pulse Rate [ Anterior Bilateral] Pulse Rate [ From Monitor] Respiratory 37 H 22 33 H Rate Respiratory Rate [Anterior Bilateral Throughout] Respiratory Rate [Anterior Bilateral] Blood Pressure 126/87 126/87 126/87 O2 Sat by Pulse 95 97 96 Oximetry 06/09/18 06/09/18 06/09/18 11:40 11:50 11:59 Temperature 98.4 F Pulse Rate 113 H 109 H Pulse Rate [ Anterior Bilateral Throughout] Pulse Rate [ Anterior Bilateral] Pulse Rate [ From Monitor] Respiratory 27 H 17 Rate Respiratory Rate [Anterior Bilateral Throughout] Respiratory Rate [Anterior Bilateral] Blood Pressure 126/87 126/87 O2 Sat by Pulse 95 95 Oximetry 06/09/18 06/09/18 12:00 12:38 Temperature Pulse Rate 111 H 113 H Pulse Rate [ Anterior Bilateral Throughout] Pulse Rate [ Anterior Bilateral] Pulse Rate [ 113 H From Monitor] Respiratory 35 H Rate Respiratory Rate [Anterior Bilateral Throughout] Respiratory Rate [Anterior Bilateral] Blood Pressure 132/80 132/80 O2 Sat by Pulse 91 Oximetry Constitutional: appears uncomfortable, other (elderly chronically ill looking CF; normocephalic and with mild patient-vent dyssynchrony) Eyes: non-icteric ENT: oropharynx moist, other (extubated) Neck: supple, no lymphadenopathy, no JVD, other (large neck circumference) Effort: mildly labored Ascultation: Bilateral: diminished breath sounds, rales Percussion: Bilateral: not dull Cardiovascular: regular rate and rhythm, murmur noted (ANGELO) Gastrointestinal: normoactive bowel sounds, soft, non-tender, non-distended Integumentary: normal Extremities: no cyanosis, no edema, pink and warm, pulses normal Neurologic: non-focal exam (grossly), pupils equal and round, CN II-XII normal, motor strength normal and Psychiatric: mood appropriate, affect normal CBC and BMP: 06/13/18 05:00 06/13/18 05:00 ABG, PT/INR, D-dimer: ABG POC ABG pH 7.384 (7.35-7.45) 06/05/18 04:10 POC ABG pCO2 56.3 (35-45) H 06/05/18 04:10 POC ABG pO2 61 (80-105) L 06/05/18 04:10 POC ABG HCO3 33.6 (22-26 mml/L) 06/05/18 04:10 POC ABG Total CO2 35 (23-27mmol/L) 06/05/18 04:10 POC ABG O2 Sat 90 06/05/18 04:10 PT/INR, D-dimer D-Dimer 1062.49 ng/mlDDU (0-234) H 05/28/18 13:13 Abnormal lab findings: Abnormal Labs 05/28/18 05/28/18 05/28/18 13:13 13:13 13:13 Hgb 9.7 L MCV 77 L MCH 23 L MCHC 29 L RDW 19.2 H Plt Count Lymph % (Auto) 8.5 L [place] % (Auto) 11.3 H Lymph # 0.8 L [place] # 1.1 H Seg Neutrophils % 79.8 H Seg Neuts % (Manual) Lymphocytes % (Manual) Nucleated RBC % Seg Neutrophils # Man Lymphocytes # (Manual) D-Dimer 1062.49 H POC ABG pH POC ABG pCO2 POC ABG pO2 Sodium Chloride Carbon Dioxide BUN 24 H Creatinine 0.6 L Glucose POC Glucose Calcium Magnesium Albumin 3.5 L Triglycerides Ur Specific [place] 05/28/18 05/28/18 05/28/18 13:22 14:50 16:05 Hgb MCV MCH MCHC RDW Plt Count Lymph % (Auto) [place] % (Auto) Lymph # [place] # Seg Neutrophils % Seg Neuts % (Manual) Lymphocytes % (Manual) Nucleated RBC % Seg Neutrophils # Man Lymphocytes # (Manual) D-Dimer POC ABG pH 7.249 L 7.126 L POC ABG pCO2 68.9 H POC ABG pO2 77 L Sodium Chloride 109.1 H Carbon Dioxide BUN 22 H Creatinine 0.5 L Glucose POC Glucose Calcium 7.5 L Magnesium Albumin Triglycerides Ur Specific [place] 05/28/18 05/28/18 05/28/18 17:57 18:48 22:47 Hgb MCV MCH MCHC RDW Plt Count Lymph % (Auto) [place] % (Auto) Lymph # [place] # Seg Neutrophils % Seg Neuts % (Manual) Lymphocytes % (Manual) Nucleated RBC % Seg Neutrophils # Man Lymphocytes # (Manual) D-Dimer POC ABG pH 7.195 L 7.312 L POC ABG pCO2 57.5 H POC ABG pO2 57 L 73 L Sodium Chloride Carbon Dioxide BUN Creatinine Glucose POC Glucose Calcium Magnesium Albumin Triglycerides Ur Specific [place] > 1.030 H 05/30/18 05/30/18 05/31/18 06:10 10:42 04:23 Hgb MCV MCH MCHC RDW Plt Count Lymph % (Auto) [place] % (Auto) Lymph # [place] # Seg Neutrophils % Seg Neuts % (Manual) Lymphocytes % (Manual) Nucleated RBC % Seg Neutrophils # Man Lymphocytes # (Manual) D-Dimer POC ABG pH 7.214 L 7.253 L POC ABG pCO2 64.5 H 56.4 H POC ABG pO2 78 L 74 L Sodium Chloride Carbon Dioxide BUN Creatinine Glucose POC Glucose Calcium Magnesium Albumin Triglycerides Ur Specific [place] 05/31/18 05/31/18 05/31/18 06:30 08:50 08:50 Hgb 9.3 L MCV 78 L MCH 23 L MCHC 29 L RDW 19.8 H Plt Count 131 L Lymph % (Auto) [place] % (Auto) Lymph # [place] # Seg Neutrophils % Seg Neuts % (Manual) 98.0 H Lymphocytes % (Manual) 2.0 L Nucleated RBC % 1.0 H Seg Neutrophils # Man 8.4 H Lymphocytes # (Manual) 0.2 L D-Dimer POC ABG pH POC ABG pCO2 POC ABG pO2 Sodium 153 H D Chloride 117.4 H Carbon Dioxide BUN 18 H Creatinine 0.4 L Glucose 159 H POC Glucose 146 H Calcium 8.3 L Magnesium Albumin Triglycerides Ur Specific [place] 06/01/18 06/01/18 06/01/18 00:11 03:32 05:50 Hgb 9.8 L MCV 77 L MCH 23 L MCHC 29 L RDW 20.1 H Plt Count 122 L Lymph % (Auto) [place] % (Auto) Lymph # [place] # Seg Neutrophils % Seg Neuts % (Manual) Lymphocytes % (Manual) Nucleated RBC % Seg Neutrophils # Man Lymphocytes # (Manual) D-Dimer POC ABG pH 7.465 H POC ABG pCO2 POC ABG pO2 Sodium Chloride Carbon Dioxide BUN Creatinine Glucose POC Glucose 149 H Calcium Magnesium Albumin Triglycerides Ur Specific [place] 06/01/18 06/01/18 06/01/18 05:50 05:50 05:51 Hgb MCV MCH MCHC RDW Plt Count Lymph % (Auto) [place] % (Auto) Lymph # [place] # Seg Neutrophils % Seg Neuts % (Manual) Lymphocytes % (Manual) Nucleated RBC % Seg Neutrophils # Man Lymphocytes # (Manual) D-Dimer POC ABG pH POC ABG pCO2 POC ABG pO2 Sodium 152 H Chloride 113.7 H Carbon Dioxide BUN 18 H Creatinine 0.3 L Glucose 146 H POC Glucose 146 H Calcium Magnesium 2.40 H Albumin Triglycerides 214 H Ur Specific [place] 06/01/18 06/01/18 06/01/18 10:40 11:52 12:06 Hgb MCV MCH MCHC RDW Plt Count Lymph % (Auto) [place] % (Auto) Lymph # [place] # Seg Neutrophils % Seg Neuts % (Manual) Lymphocytes % (Manual) Nucleated RBC % Seg Neutrophils # Man Lymphocytes # (Manual) D-Dimer POC ABG pH POC ABG pCO2 48.4 H POC ABG pO2 Sodium Chloride Carbon Dioxide BUN Creatinine Glucose POC Glucose 147 H 138 H Calcium Magnesium Albumin Triglycerides Ur Specific [place] 06/01/18 06/02/18 06/02/18 18:08 00:39 04:11 Hgb MCV MCH MCHC RDW Plt Count Lymph % (Auto) [place] % (Auto) Lymph # [place] # Seg Neutrophils % Seg Neuts % (Manual) Lymphocytes % (Manual) Nucleated RBC % Seg Neutrophils # Man Lymphocytes # (Manual) D-Dimer POC ABG pH POC ABG pCO2 50.3 H POC ABG pO2 72 L Sodium Chloride Carbon Dioxide BUN Creatinine Glucose POC Glucose 156 H 156 H Calcium Magnesium Albumin Triglycerides Ur Specific [place] 06/02/18 06/02/18 06/02/18 05:16 07:47 07:47 Hgb 10.0 L MCV 77 L MCH 23 L MCHC 29 L RDW 18.8 H Plt Count 103 L Lymph % (Auto) [place] % (Auto) Lymph # [place] # Seg Neutrophils % Seg Neuts % (Manual) Lymphocytes % (Manual) Nucleated RBC % Seg Neutrophils # Man Lymphocytes # (Manual) D-Dimer POC ABG pH POC ABG pCO2 POC ABG pO2 Sodium 148 H Chloride 109.4 H Carbon Dioxide 32 H BUN 21 H Creatinine 0.3 L Glucose 137 H POC Glucose 150 H Calcium Magnesium Albumin Triglycerides Ur Specific [place] 06/02/18 06/02/18 06/02/18 11:46 17:51 19:58 Hgb MCV MCH MCHC RDW Plt Count Lymph % (Auto) [place] % (Auto) Lymph # [place] # Seg Neutrophils % Seg Neuts % (Manual) Lymphocytes % (Manual) Nucleated RBC % Seg Neutrophils # Man Lymphocytes # (Manual) D-Dimer POC ABG pH POC ABG pCO2 POC ABG pO2 Sodium Chloride Carbon Dioxide BUN Creatinine Glucose POC Glucose 150 H 135 H 131 H Calcium Magnesium Albumin Triglycerides Ur Specific [place] 06/03/18 06/03/18 06/03/18 04:28 04:59 04:59 Hgb MCV 76 L MCH 23 L MCHC RDW 19.1 H Plt Count 99 L Lymph % (Auto) [place] % (Auto) Lymph # [place] # Seg Neutrophils % Seg Neuts % (Manual) Lymphocytes % (Manual) Nucleated RBC % Seg Neutrophils # Man Lymphocytes # (Manual) D-Dimer POC ABG pH POC ABG pCO2 50.4 H POC ABG pO2 65 L Sodium Chloride Carbon Dioxide BUN 23 H Creatinine 0.3 L Glucose 167 H POC Glucose Calcium Magnesium Albumin Triglycerides Ur Specific [place] 06/03/18 06/03/18 06/03/18 05:17 12:20 17:28 Hgb MCV MCH MCHC RDW Plt Count Lymph % (Auto) [place] % (Auto) Lymph # [place] # Seg Neutrophils % Seg Neuts % (Manual) Lymphocytes % (Manual) Nucleated RBC % Seg Neutrophils # Man Lymphocytes # (Manual) D-Dimer POC ABG pH POC ABG pCO2 POC ABG pO2 Sodium Chloride Carbon Dioxide BUN Creatinine Glucose POC Glucose 153 H 155 H 135 H Calcium Magnesium Albumin Triglycerides Ur Specific [place] 06/03/18 06/04/18 06/04/18 23:23 04:37 05:15 Hgb MCV MCH MCHC RDW Plt Count Lymph % (Auto) [place] % (Auto) Lymph # [place] # Seg Neutrophils % Seg Neuts % (Manual) Lymphocytes % (Manual) Nucleated RBC % Seg Neutrophils # Man Lymphocytes # (Manual) D-Dimer POC ABG pH POC ABG pCO2 51.3 H POC ABG pO2 79 L Sodium Chloride Carbon Dioxide BUN Creatinine Glucose POC Glucose 145 H 140 H Calcium Magnesium Albumin Triglycerides Ur Specific [place] 06/04/18 06/04/18 06/05/18 11:47 17:22 01:13 Hgb MCV MCH MCHC RDW Plt Count Lymph % (Auto) [place] % (Auto) Lymph # [place] # Seg Neutrophils % Seg Neuts % (Manual) Lymphocytes % (Manual) Nucleated RBC % Seg Neutrophils # Man Lymphocytes # (Manual) D-Dimer POC ABG pH POC ABG pCO2 POC ABG pO2 Sodium Chloride Carbon Dioxide BUN Creatinine Glucose POC Glucose 158 H 131 H 137 H Calcium Magnesium Albumin Triglycerides Ur Specific [place] 06/05/18 06/05/18 06/05/18 04:10 06:33 11:41 Hgb MCV MCH MCHC RDW Plt Count Lymph % (Auto) [place] % (Auto) Lymph # [place] # Seg Neutrophils % Seg Neuts % (Manual) Lymphocytes % (Manual) Nucleated RBC % Seg Neutrophils # Man Lymphocytes # (Manual) D-Dimer POC ABG pH POC ABG pCO2 56.3 H POC ABG pO2 61 L Sodium Chloride Carbon Dioxide BUN Creatinine Glucose POC Glucose 136 H 150 H Calcium Magnesium Albumin Triglycerides Ur Specific [place] 06/05/18 06/05/18 06/05/18 15:27 19:49 22:44 Hgb MCV MCH MCHC RDW Plt Count Lymph % (Auto) [place] % (Auto) Lymph # [place] # Seg Neutrophils % Seg Neuts % (Manual) Lymphocytes % (Manual) Nucleated RBC % Seg Neutrophils # Man Lymphocytes # (Manual) D-Dimer POC ABG pH POC ABG pCO2 POC ABG pO2 Sodium Chloride Carbon Dioxide 36 H D BUN 25 H Creatinine 0.4 L Glucose 130 H POC Glucose 125 H 137 H Calcium Magnesium Albumin Triglycerides Ur Specific [place] 06/06/18 06/07/18 06/07/18 12:51 18:24 23:45 Hgb MCV MCH MCHC RDW Plt Count Lymph % (Auto) [place] % (Auto) Lymph # [place] # Seg Neutrophils % Seg Neuts % (Manual) Lymphocytes % (Manual) Nucleated RBC % Seg Neutrophils # Man Lymphocytes # (Manual) D-Dimer POC ABG pH POC ABG pCO2 POC ABG pO2 Sodium Chloride Carbon Dioxide BUN Creatinine Glucose POC Glucose 66 L 139 H 130 H Calcium Magnesium Albumin Triglycerides Ur Specific [place] 06/08/18 06/08/18 06/08/18 03:37 03:37 06:24 Hgb MCV 76 L MCH 24 L MCHC RDW 19.8 H Plt Count 103 L Lymph % (Auto) [place] % (Auto) Lymph # [place] # Seg Neutrophils % Seg Neuts % (Manual) Lymphocytes % (Manual) Nucleated RBC % Seg Neutrophils # Man Lymphocytes # (Manual) D-Dimer POC ABG pH POC ABG pCO2 POC ABG pO2 Sodium Chloride Carbon Dioxide BUN Creatinine 0.2 L Glucose 123 H POC Glucose 119 H Calcium 8.3 L Magnesium Albumin Triglycerides Ur Specific [place] 06/08/18 23:26 Hgb MCV MCH MCHC RDW Plt Count Lymph % (Auto) [place] % (Auto) Lymph # [place] # Seg Neutrophils % Seg Neuts % (Manual) Lymphocytes % (Manual) Nucleated RBC % Seg Neutrophils # Man Lymphocytes # (Manual) D-Dimer POC ABG pH POC ABG pCO2 POC ABG pO2 Sodium Chloride Carbon Dioxide BUN Creatinine Glucose POC Glucose 106 H Calcium Magnesium Albumin Triglycerides Ur Specific [place] Allied health notes reviewed: nursing
[2018-06-09] MEDS: ARIXTRA SUB-Q SCH (23:10)
[2018-06-10] MEDS ORDERED: LOPRESSOR PO PRN
[2018-06-10] MEDS: HumaLOG SUB-Q SCH ×2 (01:14→06:28)
[2018-06-10] MEDS: FREE WATER PO SCH ×2 (05:51→05:52)
[2018-06-10] MEDS: BROVANA NEBU IH SCH ×2 (07:30→19:49)
[2018-06-10] MEDS: DUONEB *Not for PRN Use IH SCH ×2 (07:31→21:51)
[2018-06-10] MEDS: PULMICORT IH SCH ×2 (07:31→19:49)
--- NOTE | 2018-06-10 08:23 | Progress Note ---
Assessment and Plan Assessment and plan: Patient is a 58 yo woman with a history of chronic hypoxic respiratory failure due to End stage COPD on home O2, CAD s/p PCI with bare metal stent, cps with recurrent admission for narcotic overdose, PCP toxicity in the past, MDD, dyslipidemia and anemia who presented from home to [facility] ED with AMS. According to chart, pt has not been using her O2 and started hallucinating. She was intubated in the ED. She was also hypotensive in the ED and started on Vasopressor/Levophed --Septic Shock : off pressors BP well maintained -- LLL Pseudomonas/E.coli pneumonia:Sputum culture positive for Pseudomonas/Escherichia coli received 10 days of Levaquin, ID started 5 days of Diflucan, symptoms significantly improved --Sinus Tachycaedia: resolved --AMS with Acute encephalopathy, significant improvement from admission Confused at times, history of substance abuse, psych disorder, psych following --Acute on chronic combined respiratory failure requiring intubation: Now ext ubated --Severe AE COPD: iv steriods continue taper, abx, nebs and titrated to O2 sats more than 90% Evaluation for home oxygen at discharge --DVT prophylaxis: sq Lovenox --Acute thrombocytopenia: Lovenox discontinued, negative for HIT, SCD --Disposition: Physical therapy ,OT Discharge planning per case management Possible discharge in 1-2 days if stable Patient's condition and treatment plan discussed in detail with the patient and her nurse History Interval history: Patient seen and examined medical records reviewed No new events reported by the nursing staff Patient feels better Tachycardia resolved Hospitalist Physical - Constitutional Vitals: Temp Pulse Resp BP Pulse Ox 97.4 F L 73 20 132/70 93 06/10/18 05:00 06/10/18 08:00 06/10/18 08:00 06/10/18 05:00 06/10/18 08:01 General appearance: Present: no acute distress, well-nourished, obese, other (on Ventimask) - EENT Eyes: Present: PERRL, EOM intact - Neck Neck: Present: supple, normal ROM - Respiratory Respiratory effort: normal Respiratory: bilateral: diminished, negative: rales, rhonchi, wheezing - Cardiovascular Rhythm: regular Heart Sounds: Present: S1 & S2 - Extremities Extremities: no ischemia, No edema - Abdominal General gastrointestinal: soft, non-tender, non-distended, normal bowel sounds - Integumentary Integumentary: Present: clear, warm - Psychiatric Psychiatric: appropriate mood/affect, cooperative - Neurologic Neurologic: CNII-XII intact, moves all extremities Results - Labs CBC & Chem 7: 06/12/18 00:19 06/11/18 06:08 Labs: Laboratory Last Values WBC 10.2 K/mm3 (4.5-11.0) 06/08/18 03:37 RBC 4.27 M/mm3 (3.65-5.03) 06/08/18 03:37 Hgb 10.1 gm/dl (10.1-14.3) 06/08/18 03:37 Hct 32.4 % (30.3-42.9) 06/08/18 03:37 MCV 76 fl (79-97) L 06/08/18 03:37 MCH 24 pg (28-32) L 06/08/18 03:37 MCHC 31 % (30-34) 06/08/18 03:37 RDW 19.8 % (13.2-15.2) H 06/08/18 03:37 Plt Count 103 K/mm3 (140-440) L 06/08/18 03:37 Lymph % (Auto) 8.5 % (13.4-35.0) L 05/28/18 13:13 [place] % (Auto) 11.3 % (0.0-7.3) H 05/28/18 13:13 Eos % (Auto) 0.0 % (0.0-4.3) 05/28/18 13:13 Baso % (Auto) 0.4 % (0.0-1.8) 05/28/18 13:13 Lymph # 0.8 K/mm3 (1.2-5.4) L 05/28/18 13:13 [place] # 1.1 K/mm3 (0.0-0.8) H 05/28/18 13:13 Eos # 0.0 K/mm3 (0.0-0.4) 05/28/18 13:13 Baso # 0.0 K/mm3 (0.0-0.1) 05/28/18 13:13 Add Manual Diff Complete 05/31/18 08:50 Total Counted 100 05/31/18 08:50 Seg Neutrophils % Rooter Operator 05/31/18 08:50 Seg Neuts % (Manual) 98.0 % (40.0-70.0) H 05/31/18 08:50 Band Neutrophils % 0 % 05/31/18 08:50 Lymphocytes % (Manual) 2.0 % (13.4-35.0) L 05/31/18 08:50 Reactive Lymphs % (Man) 0 % 05/31/18 08:50 Monocytes % (Manual) 0 % (0.0-7.3) 05/31/18 08:50 Eosinophils % (Manual) 0 % (0.0-4.3) 05/31/18 08:50 Basophils % (Manual) 0 % (0.0-1.8) 05/31/18 08:50 Metamyelocytes % 0 % 05/31/18 08:50 Myelocytes % 0 % 05/31/18 08:50 Promyelocytes % 0 % 05/31/18 08:50 Blast Cells % 0 % 05/31/18 08:50 Nucleated RBC % 1.0 % (0.0-0.9) H 05/31/18 08:50 Seg Neutrophils # 7.7 K/mm3 (1.8-7.7) 05/28/18 13:13 Seg Neutrophils # Man 8.4 K/mm3 (1.8-7.7) H 05/31/18 08:50 Band Neutrophils # 0.0 K/mm3 05/31/18 08:50 Lymphocytes # (Manual) 0.2 K/mm3 (1.2-5.4) L 05/31/18 08:50 Abs React Lymphs (Man) 0.0 K/mm3 05/31/18 08:50 Monocytes # (Manual) 0.0 K/mm3 (0.0-0.8) 05/31/18 08:50 Eosinophils # (Manual) 0.0 K/mm3 (0.0-0.4) 05/31/18 08:50 Basophils # (Manual) 0.0 K/mm3 (0.0-0.1) 05/31/18 08:50 Metamyelocytes # 0.0 K/mm3 05/31/18 08:50 Myelocytes # 0.0 K/mm3 05/31/18 08:50 Promyelocytes # 0.0 K/mm3 05/31/18 08:50 Blast Cells # 0.0 K/mm3 05/31/18 08:50 WBC Morphology Not Reportable 05/31/18 08:50 Hypersegmented Neuts Not Reportable 05/31/18 08:50 Hyposegmented Neuts Not Reportable 05/31/18 08:50 Hypogranular Neuts Not Reportable 05/31/18 08:50 Smudge Cells Not Reportable 05/31/18 08:50 Toxic Granulation Not Reportable 05/31/18 08:50 Toxic Vacuolation Not Reportable 05/31/18 08:50 Dohle Bodies Not Reportable 05/31/18 08:50 Pelger-Huet Anomaly Not Reportable 05/31/18 08:50 Neha Rods Not Reportable 05/31/18 08:50 Platelet Estimate Consistent w auto 05/31/18 08:50 Clumped Platelets Not Reportable 05/31/18 08:50 Plt Clumps, EDTA Not Reportable 05/31/18 08:50 Large Platelets Not Reportable 05/31/18 08:50 Giant Platelets Not Reportable 05/31/18 08:50 Platelet Satelliting Not Reportable 05/31/18 08:50 Plt Morphology Comment Not Reportable 05/31/18 08:50 RBC Morphology Not Reportable 05/31/18 08:50 Dimorphic RBCs Not Reportable 05/31/18 08:50 Polychromasia Few 05/31/18 08:50 Hypochromasia Few 05/31/18 08:50 Poikilocytosis Not Reportable 05/31/18 08:50 Anisocytosis Not Reportable 05/31/18 08:50 Microcytosis Not Reportable 05/31/18 08:50 Macrocytosis Not Reportable 05/31/18 08:50 Spherocytes Not Reportable 05/31/18 08:50 Pappenheimer Bodies Not Reportable 05/31/18 08:50 Sickle Cells Not Reportable 05/31/18 08:50 Target Cells Not Reportable 05/31/18 08:50 Tear Drop Cells Not Reportable 05/31/18 08:50 Ovalocytes Not Reportable 05/31/18 08:50 Stomatocytes Rare 05/31/18 08:50 Helmet Cells Not Reportable 05/31/18 08:50 [place] Bodies Not Reportable 05/31/18 08:50 [place] Rings Not Reportable 05/31/18 08:50 [place] Cells Not Reportable 05/31/18 08:50 Bite Cells Not Reportable 05/31/18 08:50 Crenated Cell Not Reportable 05/31/18 08:50 Elliptocytes Not Reportable 05/31/18 08:50 Acanthocytes (Spur) Not Reportable 05/31/18 08:50 Rouleaux Not Reportable 05/31/18 08:50 Hemoglobin C Crystals Not Reportable 05/31/18 08:50 Schistocytes Not Reportable 05/31/18 08:50 Malaria parasites Not Reportable 05/31/18 08:50 [place]an Bodies Not Reportable 05/31/18 08:50 Hem Pathologist Commnt No 05/31/18 08:50 D-Dimer 1062.49 ng/mlDDU (0-234) H 05/28/18 13:13 Heparin Anti-Xa, Unfract Negative (Negative) 06/03/18 10:55 POC ABG pH 7.384 (7.35-7.45) 06/05/18 04:10 POC ABG pCO2 56.3 (35-45) H 06/05/18 04:10 POC ABG pO2 61 (80-105) L 06/05/18 04:10 POC ABG HCO3 33.6 (22-26 mml/L) 06/05/18 04:10 POC ABG Total CO2 35 (23-27mmol/L) 06/05/18 04:10 POC ABG O2 Sat 90 06/05/18 04:10 POC ABG Base Excess 9 ((-2) - (+3)mmol/L) 06/05/18 04:10 FiO2 45 % 06/05/18 04:10 Sodium 139 mmol/L (137-145) 06/08/18 03:37 Potassium 4.0 mmol/L (3.6-5.0) 06/08/18 03:37 Chloride 100.6 mmol/L (98-107) 06/08/18 03:37 Carbon Dioxide 29 mmol/L (22-30) D 06/08/18 03:37 Anion Gap 13 mmol/L 06/08/18 03:37 BUN 11 mg/dL (7-17) 06/08/18 03:37 Creatinine 0.2 mg/dL (0.7-1.2) L 06/08/18 03:37 Estimated GFR > 60 ml/min 06/08/18 03:37 BUN/Creatinine Ratio 55 % 06/08/18 03:37 Glucose 123 mg/dL (65-100) H 06/08/18 03:37 POC Glucose 84 (70-105) 06/10/18 05:55 Lactic Acid 0.90 mmol/L (0.7-2.0) 05/28/18 14:50 Calcium 8.3 mg/dL (8.4-10.2) L 06/08/18 03:37 Magnesium 2.40 mg/dL (1.7-2.3) H 06/01/18 05:50 Total Bilirubin 0.30 mg/dL (0.1-1.2) 05/28/18 13:13 AST 23 units/L (5-40) 05/28/18 13:13 ALT 11 units/L (7-56) 05/28/18 13:13 Alkaline Phosphatase 96 units/L (35-129) 05/28/18 13:13 Troponin T < 0.010 ng/mL (0.00-0.029) 05/28/18 13:13 Total Protein 6.6 g/dL (6.3-8.2) 05/28/18 13:13 Albumin 3.5 g/dL (3.9-5) L 05/28/18 13:13 Albumin/Globulin Ratio 1.1 % 05/28/18 13:13 Triglycerides 214 mg/dL (2-149) H 06/01/18 05:50 Urine Color Yellow (Yellow) 05/28/18 17:57 Urine Turbidity Clear (Clear) 05/28/18 17:57 Urine pH 6.0 (5.0-7.0) 05/28/18 17:57 Ur Specific [place] > 1.030 (1.003-1.030) H 05/28/18 17:57 Urine Protein 100 mg/dl mg/dL (Negative) 05/28/18 17:57 Urine Glucose (UA) Neg mg/dL (Negative) 05/28/18 17:57 Urine Ketones 20 mg/dL (Negative) 05/28/18 17:57 Urine Blood Sm (Negative) 05/28/18 17:57 Urine Nitrite Neg (Negative) 05/28/18 17:57 Urine Bilirubin Neg (Negative) 05/28/18 17:57 Urine Urobilinogen 2.0 mg/dL (<2.0) 05/28/18 17:57 Ur Leukocyte Esterase Neg (Negative) 05/28/18 17:57 Urine WBC (Auto) 1.0 /HPF (0.0-6.0) 05/28/18 17:57 Urine RBC (Auto) 2.0 /HPF (0.0-6.0) 05/28/18 17:57 U Epithel Cells (Auto) < 1.0 /HPF (0-13.0) 05/28/18 17:57 Urine Mucus Few /HPF 05/28/18 17:57 Random Gentamicin 0.4 ug/mL (0.0-10.0) 06/01/18 05:50 Vancomycin Trough 7.2 ug/mL (5.0-20.0) 05/31/18 09:39 Urine Opiates Screen Presumptive negative 05/29/18 23:50 Urine Methadone Screen Presumptive negative 05/29/18 23:50 Ur Barbiturates Screen Presumptive negative 05/29/18 23:50 Ur Phencyclidine Scrn Presumptive negative 05/29/18 23:50 Ur Amphetamines Screen Presumptive negative 05/29/18 23:50 U Benzodiazepines Scrn Presumptive negative 05/29/18 23:50 Urine Cocaine Screen Presumptive negative 05/29/18 23:50 U Marijuana (THC) Screen Presumptive negative 05/29/18 23:50 Drugs of Abuse Note Disclamer 05/29/18 23:50 Heparin-induced Plt Ab Negative (Negative) 06/03/18 10:55 UF Heparin High Dose 0 % Release 06/03/18 10:55 ESSIE UFH Low Dose 0.1 0 % Release 06/03/18 10:55 ESSIE UFH Low Dose 0.5 0 % Release 06/03/18 10:55 Active Medications - Current Medications Current Medications: Generic Name Dose Route Start Last Admin Trade Name Freq PRN Reason Stop Dose Admin Acetaminophen 650 mg 05/31/18 09:02 05/31/18 09:26 Tylenol FEEDTUBE 650 mg Q6H PRN Administration Non Cardiac Pain or Temp>100.5 Albuterol/Ipratropium 1 ampul 06/04/18 20:00 06/10/18 07:31 Duoneb *Not For Prn Use* IH 1 ampul BIDRT DOMINICK Administration Amlodipine Besylate 10 mg 05/29/18 10:00 06/09/18 09:45 Norvasc PO 10 mg DAILY DOMINICK Administration Lipase/Protease/Amylase 1 each 05/28/18 22:45 Pancrejohanne Pereira 10,500 Unit FEEDTUBE PRN PRN For Clogged Feeding Tube Arformoterol Tartrate 15 mcg 06/04/18 20:00 06/10/18 07:30 Brovana Nebu IH 15 mcg Q12HRT DOMINICK Administration Baclofen 10 mg 05/28/18 23:00 06/09/18 21:55 Lioresal PO 10 mg BID DOMINICK Administration Budesonide 0.5 mg 05/28/18 22:45 06/10/18 07:31 Pulmicort IH 0.5 mg Q12HRT DOMINICK Administration Buspirone HCl 5 mg 05/28/18 23:00 06/09/18 21:55 Buspar PO 5 mg BID DOMINICK Administration Fluconazole 100 mg 06/09/18 10:00 06/09/18 12:38 Diflucan PO 06/13/18 10:01 100 mg QDAY DOMINICK Administration Fondaparinux 2.5 mg 06/09/18 22:00 06/09/18 23:10 Arixtra SUB-Q 2.5 mg DAILY@2200 DOMINICK Administration Insulin Human Lispro 0 unit 06/01/18 10:00 06/10/18 06:28 Humalog SUB-Q Not Given Q6HR [facility] [place] Protocol Lansoprazole 30 mg 05/30/18 10:00 06/09/18 09:45 Prevacid Solutab FEEDTUBE 30 mg QDAY DOMINICK Administration Lisinopril 10 mg 05/29/18 10:00 06/09/18 09:45 Zestril PO 10 mg QDAY DOMINICK Administration Lorazepam 2 mg 05/31/18 08:39 06/07/18 11:23 Ativan IV 2 mg Q1H PRN Administration CIWA-Ar 8-15 Lorazepam 4 mg 05/31/18 08:39 06/08/18 20:53 Ativan IV 4 mg Q1H PRN Administration CIWA-Ar 16-25 Lorazepam 4 mg 05/31/18 08:39 06/05/18 20:00 Ativan IV 4 mg Q15MIN PRN Administration CIWA-Ar >25 Metoprolol Tartrate 12.5 mg 06/10/18 00:00 Lopressor PO Q6H PRN HR>125 Prednisone 40 mg 06/10/18 10:00 Deltasone PO QDAY DOMINICK Quetiapine Fumarate 50 mg 06/10/18 10:00 Seroquel PO 06/10/18 22:01 BID DOMINICK Simple Syrup 15 ml 05/28/18 22:45 06/06/18 12:00 Simple Syrup FEEDTUBE 15 ml PRN PRN Administration Hypoglycemia Simple Syrup 30 ml 05/28/18 22:45 Simple Syrup FEEDTUBE PRN PRN Hypoglycemia Sodium Bicarbonate 325 mg 05/28/18 22:45 06/07/18 23:48 Sodium Bicarbonate FEEDTUBE 325 mg PRN PRN Administration For Clogged Feeding Tube Sodium Chloride 10 ml 05/29/18 10:00 06/09/18 21:56 Sodium Chloride Flush Syringe 10 Ml IV 10 ml BID DOMINICK Administration Sodium Chloride 10 ml 05/28/18 22:45 06/06/18 05:50 Sodium Chloride Flush Syringe 10 Ml IV 10 ml PRN PRN Administration LINE FLUSH Nutrition/Malnutrition Assess - Dietary Evaluation Nutrition/Malnutrition Findings: Nutrition Notes Start: 05/29/18 09:32 Freq: Status: Active Protocol: Document 06/09/18 10:53 SA (Rec: 06/09/18 11:[address] [facility]-[id number]) Co-Sign 06/09/18 10:53 LP Nutrition Notes Initial or Follow up Reassessment Current Diagnosis COPD,Hypertension,Respiratory Failure Other Pertinent Diagnosis COPD exacerbation, End-stage lung Dz Current Diet Vital High Protein at 45mL/hr Labs/Tests Cr: 0.2 Glu: 123 POC: 106 Ca: 8.3 Pertinent Medications Humalog Height 5 ft Weight 93.5 kg [place] Body Weight (kg) 45.45 BMI 40.2 Weight Status Obese Subjective/Other Information Patient states appetite is off and on. Pt reports eating 25% of meals. Pt reports nausea. Pt denies chewing/swallowing difficulty. Percent of energy/protein needs met: 41%/27% Burn Absent Trauma Absent #1 Nutrition Diagnosis Inadequate oral intake Diagnosis Progress(for reassessment Continues documentation) Is patient on ventilator? Yes Is Patient Ambulatory and/or Out of Bed No REE-([place]-confined to bed) 1716.444 Kcal/Kg value to use for calculation 14 Approximate Energy Requirements Using 1309 kcal/Kg Calculation Used for Recommendations Kcal/kg Additional Notes Pro needs 2g/kg IBW: 91g/day Fluid needs 1ml/kcal Nutrition Intervention Change Diet Order: Continue current Add Supplement/Snack (indicate name/kcal Ensure Enlive BID /protein ) Provides kCal: 350 Provides Protein (gm) 20 Goal #1 Meet at least 75% of kcal and pro needs via PO and ONS intake Anticipated Discharge Needs: mechanical soft diet Follow-Up By: 06/11/18 Additional Comments F/U: PO and ONS intake
--- NOTE | 2018-06-10 09:37 | Progress Note ---
Assessment and Plan Cultures: 05/28/2018 blood culture: no growth 05/28/2018 Resp culture: E. coli, Pseudomonas aeruginosa 05/31/2018 blood culture: no growth A/P: 58-year-old female with COPD with chronic respiratory failure on home oxygen admitted with shortness of breath and confusion: 1) Septic shock: Improved. noted Leukocytosis, possibly related to steroids, secondary to left lower lobe pneumonia requiring mechanical ventilation. Cultures growing resistant Pseudomonas, susceptible E.coli. On abx. 2) Acute on chronic respiratory failure with underlying COPD: On NC 3) Acute encephalopathy: likely metabolic. Improving. 4) Spinal hardware noted on imaging, no concern for infection at present. 5) Oral candidisis; Improved Recs: Continue fluconazole 100 mg PO qday, D2 of D5 Monitor WBC DINESH [facility] M: [phone] O:[phone] Subjective Date of service: 06/10/18 Principal diagnosis: Septic Shock (? LLL pneumonia); Ac on Ch hypoxic- hypercapnic Resp failure Interval history: Patient seen and examined. Siting up in the bed eating. No SOB or rashes. No fevers. Objective - Exam Narrative Exam: General appearance: Awake, Alert. no acute distress Eyes: anicteric sclerae, moist conjunctivae; no lid-lag; PERRLA HENT: Atraumatic; oropharynx +thrush improved Neck: Trachea midline; supple, no thyromegaly or lymphadenopathy Lungs: CTA emma CV: RRR, Abdomen: Soft, non-tender; no masses or hepatosplenomegaly Extremities: No peripheral edema or extremity lymphadenopathy Skin: Normal temperature, turgor and texture; no rash, ulcers or subcutaneous nodules Psych: alert follows commands - Constitutional Vitals: Vital Signs Temp Pulse Resp BP Pulse Ox 97.4 F L 73 20 132/70 93 06/10/18 05:00 06/10/18 08:00 06/10/18 08:00 06/10/18 05:00 06/10/18 08:01 Temperature -Last 24 Hours Temperature 97.4 F Temperature 98.4 F Temperature 98.6 F Temperature 98.1 F Temperature 98.4 F - Labs CBC & Chem 7: 06/10/18 09:47 06/10/18 09:47 Labs: Abnormal lab results 06/09/18 06/10/18 Range/Units 16:38 00:39 POC Glucose 109 H 114 H (70-105)
[2018-06-10 10:33] LABS: Basophils % (Auto) 0.2 % (0.0-1.8); Eosinophils # (Auto) 0.1 K/mm3 (0.0-0.4); Eosinophils % (Auto) 0.4 % (0.0-4.3); Lymphocytes # (Auto) 1.5 K/mm3 (1.2-5.4); Lymphocytes % (Auto) 9.1 % (13.4-35.0); Mean Corpuscular HGB Conc 30 % (30-34); Mean Corpuscular Volume 78 fl (79-97); Monocytes # (Auto) 1.4 K/mm3 (0.0-0.8); Monocytes % (Auto) 8.5 % (0.0-7.3); Platelet Count 163 K/mm3 (140-440); Red Blood Count 4.82 M/mm3 (3.65-5.03)
[2018-06-10 10:36] LABS: Hematocrit 37.5 % (30.3-42.9); Hemoglobin 11.1 gm/dl (10.1-14.3)
[2018-06-10] MEDS: DIFLUCAN PO SCH (12:00)
[2018-06-10] MEDS: ZESTRIL PO SCH (12:00)
[2018-06-10] MEDS: BUSPAR PO SCH ×2 (12:01→22:01)
[2018-06-10] MEDS: PREVACID SOLUTAB FEEDTUBE SCH (12:01)
[2018-06-10] MEDS: LIORESAL PO SCH ×2 (12:01→22:01)
[2018-06-10] MEDS: DELTASONE PO SCH (12:01)
[2018-06-10] MEDS: NORVASC PO SCH (12:01)
[2018-06-10] MEDS: SODIUM CHLORIDE FLUSH SYRINGE 10 ML IV SCH ×2 (12:02→22:04)
[2018-06-10 12:11] LABS: Alanine Aminotransferase 38 units/L (7-56); Albumin 3.5 g/dL (3.9-5); BUN/Creatinine Ratio 50; Blood Urea Nitrogen 15 mg/dL (7-17); Hemolysis Index 7
--- NOTE | 2018-06-10 13:10 | Progress Note ---
Assessment and Plan Patient awake and resting on 5 litres O2.O2 saturation 91%.No acute respiratory distress. - Patient Problems (1) COPD (chronic obstructive pulmonary disease) Current Visit: Yes Status: Acute Qualifiers: COPD type: unspecified COPD Qualified Code(s): J44.9 - Chronic obstructive pulmonary disease, unspecified Plan to address problem: O2 5 litres via nasal canula Albuterol/atrovent aerosol treatments q 6 hours. Continue PO prednisone. Patient is on Fondoforinux. Patient is on Prevacid. (2) Hypercapnic respiratory failure Current Visit: Yes Status: Acute (3) Encephalopathy Current Visit: Yes Status: Acute Plan to address problem: BIPAP as per protocol. O2 5 litres O2 when she is not on BIPAP. Albuterol/atrovent aerosol treatments q 6 hours. Continue PO prednisone. Patient is on Fondoforinux. Patient is on Prevacid. Subjective Date of service: 06/10/18 Principal diagnosis: Septic Shock (? LLL pneumonia); Ac on Ch hypoxic-hy percapnic Resp failure Interval history: Patient awake and resting on 5 litres O2.O2 saturation 91%.No acute respiratory distress. Objective Vital Signs - 12hr 06/10/18 06/10/18 06/10/18 02:13 05:00 07:33 Temperature 97.4 F L Pulse Rate 72 Pulse Rate [ 95 H Anterior Bilateral] Pulse Rate [ 110 H From Monitor] Respiratory 20 Rate Respiratory 20 Rate [Anterior Bilateral] Blood Pressure 132/70 O2 Sat by Pulse 100 95 Oximetry 06/10/18 06/10/18 06/10/18 08:00 08:01 12:00 Temperature Pulse Rate 73 Pulse Rate [ 73 Anterior Bilateral] Pulse Rate [ From Monitor] Respiratory Rate Respiratory 20 Rate [Anterior Bilateral] Blood Pressure 132/70 O2 Sat by Pulse 93 Oximetry Constitutional: no acute distress, alert, other (elderly chronically ill looking CF; normocephalic and with mild patient-vent dyssynchrony) Eyes: non-icteric ENT: oropharynx moist, other (extubated) Neck: supple, no lymphadenopathy, no JVD, other (large neck circumference) Effort: mildly labored Ascultation: Bilateral: diminished breath sounds, rales Percussion: Bilateral: not dull Cardiovascular: regular rate and rhythm, murmur noted (ANGELO) Gastrointestinal: normoactive bowel sounds, soft, non-tender, non-distended Integumentary: normal Extremities: no cyanosis, no edema, pink and warm, pulses normal Neurologic: non-focal exam (grossly), pupils equal and round, CN II-XII normal, motor strength normal and Psychiatric: mood appropriate, affect normal CBC and BMP: 06/10/18 09:47 06/10/18 09:47 ABG, PT/INR, D-dimer: ABG POC ABG pH 7.384 (7.35-7.45) 06/05/18 04:10 POC ABG pCO2 56.3 (35-45) H 06/05/18 04:10 POC ABG pO2 61 (80-105) L 06/05/18 04:10 POC ABG HCO3 33.6 (22-26 mml/L) 06/05/18 04:10 POC ABG Total CO2 35 (23-27mmol/L) 06/05/18 04:10 POC ABG O2 Sat 90 06/05/18 04:10 PT/INR, D-dimer D-Dimer 1062.49 ng/mlDDU (0-234) H 05/28/18 13:13 Abnormal lab findings: Abnormal Labs 05/28/18 05/28/18 05/28/18 13:13 13:13 13:13 WBC Hgb 9.7 L MCV 77 L MCH 23 L MCHC 29 L RDW 19.2 H Plt Count Lymph % (Auto) 8.5 L Luce % (Auto) 11.3 H Lymph # 0.8 L Luce # 1.1 H Seg Neutrophils % 79.8 H Seg Neuts % (Manual) Lymphocytes % (Manual) Nucleated RBC % Seg Neutrophils # Seg Neutrophils # Man Lymphocytes # (Manual) D-Dimer 1062.49 H POC ABG pH POC ABG pCO2 POC ABG pO2 Sodium Chloride Carbon Dioxide BUN 24 H Creatinine 0.6 L Glucose POC Glucose Calcium Magnesium Total Protein Albumin 3.5 L Triglycerides Ur Specific [place] 05/28/18 05/28/18 05/28/18 13:22 14:50 16:05 WBC Hgb MCV MCH MCHC RDW Plt Count Lymph % (Auto) Luce % (Auto) Lymph # Luce # Seg Neutrophils % Seg Neuts % (Manual) Lymphocytes % (Manual) Nucleated RBC % Seg Neutrophils # Seg Neutrophils # Man Lymphocytes # (Manual) D-Dimer POC ABG pH 7.249 L 7.126 L POC ABG pCO2 68.9 H POC ABG pO2 77 L Sodium Chloride 109.1 H Carbon Dioxide BUN 22 H Creatinine 0.5 L Glucose POC Glucose Calcium 7.5 L Magnesium Total Protein Albumin Triglycerides Ur Specific [place] 05/28/18 05/28/18 05/28/18 17:57 18:48 22:47 WBC Hgb MCV MCH MCHC RDW Plt Count Lymph % (Auto) Luce % (Auto) Lymph # Luce # Seg Neutrophils % Seg Neuts % (Manual) Lymphocytes % (Manual) Nucleated RBC % Seg Neutrophils # Seg Neutrophils # Man Lymphocytes # (Manual) D-Dimer POC ABG pH 7.195 L 7.312 L POC ABG pCO2 57.5 H POC ABG pO2 57 L 73 L Sodium Chloride Carbon Dioxide BUN Creatinine Glucose POC Glucose Calcium Magnesium Total Protein Albumin Triglycerides Ur Specific [place] > 1.030 H 05/30/18 05/30/18 05/31/18 06:10 10:42 04:23 WBC Hgb MCV MCH MCHC RDW Plt Count Lymph % (Auto) Luce % (Auto) Lymph # Luce # Seg Neutrophils % Seg Neuts % (Manual) Lymphocytes % (Manual) Nucleated RBC % Seg Neutrophils # Seg Neutrophils # Man Lymphocytes # (Manual) D-Dimer POC ABG pH 7.214 L 7.253 L POC ABG pCO2 64.5 H 56.4 H POC ABG pO2 78 L 74 L Sodium Chloride Carbon Dioxide BUN Creatinine Glucose POC Glucose Calcium Magnesium Total Protein Albumin Triglycerides Ur Specific [place] 05/31/18 05/31/18 05/31/18 06:30 08:50 08:50 WBC Hgb 9.3 L MCV 78 L MCH 23 L MCHC 29 L RDW 19.8 H Plt Count 131 L Lymph % (Auto) Luce % (Auto) Lymph # Luce # Seg Neutrophils % Seg Neuts % (Manual) 98.0 H Lymphocytes % (Manual) 2.0 L Nucleated RBC % 1.0 H Seg Neutrophils # Seg Neutrophils # Man 8.4 H Lymphocytes # (Manual) 0.2 L D-Dimer POC ABG pH POC ABG pCO2 POC ABG pO2 Sodium 153 H D Chloride 117.4 H Carbon Dioxide BUN 18 H Creatinine 0.4 L Glucose 159 H POC Glucose 146 H Calcium 8.3 L Magnesium Total Protein Albumin Triglycerides Ur Specific [place] 06/01/18 06/01/18 06/01/18 00:11 03:32 05:50 WBC Hgb 9.8 L MCV 77 L MCH 23 L MCHC 29 L RDW 20.1 H Plt Count 122 L Lymph % (Auto) Luce % (Auto) Lymph # Luce # Seg Neutrophils % Seg Neuts % (Manual) Lymphocytes % (Manual) Nucleated RBC % Seg Neutrophils # Seg Neutrophils # Man Lymphocytes # (Manual) D-Dimer POC ABG pH 7.465 H POC ABG pCO2 POC ABG pO2 Sodium Chloride Carbon Dioxide BUN Creatinine Glucose POC Glucose 149 H Calcium Magnesium Total Protein Albumin Triglycerides Ur Specific [place] 06/01/18 06/01/18 06/01/18 05:50 05:50 05:51 WBC Hgb MCV MCH MCHC RDW Plt Count Lymph % (Auto) Luce % (Auto) Lymph # Luce # Seg Neutrophils % Seg Neuts % (Manual) Lymphocytes % (Manual) Nucleated RBC % Seg Neutrophils # Seg Neutrophils # Man Lymphocytes # (Manual) D-Dimer POC ABG pH POC ABG pCO2 POC ABG pO2 Sodium 152 H Chloride 113.7 H Carbon Dioxide BUN 18 H Creatinine 0.3 L Glucose 146 H POC Glucose 146 H Calcium Magnesium 2.40 H Total Protein Albumin Triglycerides 214 H Ur Specific [place] 06/01/18 06/01/18 06/01/18 10:40 11:52 12:06 WBC Hgb MCV MCH MCHC RDW Plt Count Lymph % (Auto) Luce % (Auto) Lymph # Luce # Seg Neutrophils % Seg Neuts % (Manual) Lymphocytes % (Manual) Nucleated RBC % Seg Neutrophils # Seg Neutrophils # Man Lymphocytes # (Manual) D-Dimer POC ABG pH POC ABG pCO2 48.4 H POC ABG pO2 Sodium Chloride Carbon Dioxide BUN Creatinine Glucose POC Glucose 147 H 138 H Calcium Magnesium Total Protein Albumin Triglycerides Ur Specific [place] 06/01/18 06/02/18 06/02/18 18:08 00:39 04:11 WBC Hgb MCV MCH MCHC RDW Plt Count Lymph % (Auto) Luce % (Auto) Lymph # Luce # Seg Neutrophils % Seg Neuts % (Manual) Lymphocytes % (Manual) Nucleated RBC % Seg Neutrophils # Seg Neutrophils # Man Lymphocytes # (Manual) D-Dimer POC ABG pH POC ABG pCO2 50.3 H POC ABG pO2 72 L Sodium Chloride Carbon Dioxide BUN Creatinine Glucose POC Glucose 156 H 156 H Calcium Magnesium Total Protein Albumin Triglycerides Ur Specific [place] 06/02/18 06/02/18 06/02/18 05:16 07:47 07:47 WBC Hgb 10.0 L MCV 77 L MCH 23 L MCHC 29 L RDW 18.8 H Plt Count 103 L Lymph % (Auto) Luce % (Auto) Lymph # Luce # Seg Neutrophils % Seg Neuts % (Manual) Lymphocytes % (Manual) Nucleated RBC % Seg Neutrophils # Seg Neutrophils # Man Lymphocytes # (Manual) D-Dimer POC ABG pH POC ABG pCO2 POC ABG pO2 Sodium 148 H Chloride 109.4 H Carbon Dioxide 32 H BUN 21 H Creatinine 0.3 L Glucose 137 H POC Glucose 150 H Calcium Magnesium Total Protein Albumin Triglycerides Ur Specific [place] 06/02/18 06/02/18 06/02/18 11:46 17:51 19:58 WBC Hgb MCV MCH MCHC RDW Plt Count Lymph % (Auto) Luce % (Auto) Lymph # Luce # Seg Neutrophils % Seg Neuts % (Manual) Lymphocytes % (Manual) Nucleated RBC % Seg Neutrophils # Seg Neutrophils # Man Lymphocytes # (Manual) D-Dimer POC ABG pH POC ABG pCO2 POC ABG pO2 Sodium Chloride Carbon Dioxide BUN Creatinine Glucose POC Glucose 150 H 135 H 131 H Calcium Magnesium Total Protein Albumin Triglycerides Ur Specific [place] 06/03/18 06/03/18 06/03/18 04:28 04:59 04:59 WBC Hgb MCV 76 L MCH 23 L MCHC RDW 19.1 H Plt Count 99 L Lymph % (Auto) Luce % (Auto) Lymph # Luce # Seg Neutrophils % Seg Neuts % (Manual) Lymphocytes % (Manual) Nucleated RBC % Seg Neutrophils # Seg Neutrophils # Man Lymphocytes # (Manual) D-Dimer POC ABG pH POC ABG pCO2 50.4 H POC ABG pO2 65 L Sodium Chloride Carbon Dioxide BUN 23 H Creatinine 0.3 L Glucose 167 H POC Glucose Calcium Magnesium Total Protein Albumin Triglycerides Ur Specific [place] 06/03/18 06/03/18 06/03/18 05:17 12:20 17:28 WBC Hgb MCV MCH MCHC RDW Plt Count Lymph % (Auto) Luce % (Auto) Lymph # Luce # Seg Neutrophils % Seg Neuts % (Manual) Lymphocytes % (Manual) Nucleated RBC % Seg Neutrophils # Seg Neutrophils # Man Lymphocytes # (Manual) D-Dimer POC ABG pH POC ABG pCO2 POC ABG pO2 Sodium Chloride Carbon Dioxide BUN Creatinine Glucose POC Glucose 153 H 155 H 135 H Calcium Magnesium Total Protein Albumin Triglycerides Ur Specific [place] 06/03/18 06/04/18 06/04/18 23:23 04:37 05:15 WBC Hgb MCV MCH MCHC RDW Plt Count Lymph % (Auto) Luce % (Auto) Lymph # Luce # Seg Neutrophils % Seg Neuts % (Manual) Lymphocytes % (Manual) Nucleated RBC % Seg Neutrophils # Seg Neutrophils # Man Lymphocytes # (Manual) D-Dimer POC ABG pH POC ABG pCO2 51.3 H POC ABG pO2 79 L Sodium Chloride Carbon Dioxide BUN Creatinine Glucose POC Glucose 145 H 140 H Calcium Magnesium Total Protein Albumin Triglycerides Ur Specific [place] 06/04/18 06/04/18 06/05/18 11:47 17:22 01:13 WBC Hgb MCV MCH MCHC RDW Plt Count Lymph % (Auto) Luce % (Auto) Lymph # Luce # Seg Neutrophils % Seg Neuts % (Manual) Lymphocytes % (Manual) Nucleated RBC % Seg Neutrophils # Seg Neutrophils # Man Lymphocytes # (Manual) D-Dimer POC ABG pH POC ABG pCO2 POC ABG pO2 Sodium Chloride Carbon Dioxide BUN Creatinine Glucose POC Glucose 158 H 131 H 137 H Calcium Magnesium Total Protein Albumin Triglycerides Ur Specific [place] 06/05/18 06/05/18 06/05/18 04:10 06:33 11:41 WBC Hgb MCV MCH MCHC RDW Plt Count Lymph % (Auto) Luce % (Auto) Lymph # Luce # Seg Neutrophils % Seg Neuts % (Manual) Lymphocytes % (Manual) Nucleated RBC % Seg Neutrophils # Seg Neutrophils # Man Lymphocytes # (Manual) D-Dimer POC ABG pH POC ABG pCO2 56.3 H POC ABG pO2 61 L Sodium Chloride Carbon Dioxide BUN Creatinine Glucose POC Glucose 136 H 150 H Calcium Magnesium Total Protein Albumin Triglycerides Ur Specific [place] 06/05/18 06/05/18 06/05/18 15:27 19:49 22:44 WBC Hgb MCV MCH MCHC RDW Plt Count Lymph % (Auto) Luce % (Auto) Lymph # Luce # Seg Neutrophils % Seg Neuts % (Manual) Lymphocytes % (Manual) Nucleated RBC % Seg Neutrophils # Seg Neutrophils # Man Lymphocytes # (Manual) D-Dimer POC ABG pH POC ABG pCO2 POC ABG pO2 Sodium Chloride Carbon Dioxide 36 H D BUN 25 H Creatinine 0.4 L Glucose 130 H POC Glucose 125 H 137 H Calcium Magnesium Total Protein Albumin Triglycerides Ur Specific [place] 06/06/18 06/07/18 06/07/18 12:51 18:24 23:45 WBC Hgb MCV MCH MCHC RDW Plt Count Lymph % (Auto) Luce % (Auto) Lymph # Luce # Seg Neutrophils % Seg Neuts % (Manual) Lymphocytes % (Manual) Nucleated RBC % Seg Neutrophils # Seg Neutrophils # Man Lymphocytes # (Manual) D-Dimer POC ABG pH POC ABG pCO2 POC ABG pO2 Sodium Chloride Carbon Dioxide BUN Creatinine Glucose POC Glucose 66 L 139 H 130 H Calcium Magnesium Total Protein Albumin Triglycerides Ur Specific [place] 06/08/18 06/08/18 06/08/18 03:37 03:37 06:24 WBC Hgb MCV 76 L MCH 24 L MCHC RDW 19.8 H Plt Count 103 L Lymph % (Auto) Luce % (Auto) Lymph # Luce # Seg Neutrophils % Seg Neuts % (Manual) Lymphocytes % (Manual) Nucleated RBC % Seg Neutrophils # Seg Neutrophils # Man Lymphocytes # (Manual) D-Dimer POC ABG pH POC ABG pCO2 POC ABG pO2 Sodium Chloride Carbon Dioxide BUN Creatinine 0.2 L Glucose 123 H POC Glucose 119 H Calcium 8.3 L Magnesium Total Protein Albumin Triglycerides Ur Specific [place] 06/08/18 06/09/18 06/10/18 23:26 16:38 00:39 WBC Hgb MCV MCH MCHC RDW Plt Count Lymph % (Auto) Luce % (Auto) Lymph # Luce # Seg Neutrophils % Seg Neuts % (Manual) Lymphocytes % (Manual) Nucleated RBC % Seg Neutrophils # Seg Neutrophils # Man Lymphocytes # (Manual) D-Dimer POC ABG pH POC ABG pCO2 POC ABG pO2 Sodium Chloride Carbon Dioxide BUN Creatinine Glucose POC Glucose 106 H 109 H 114 H Calcium Magnesium Total Protein Albumin Triglycerides Ur Specific [place] 06/10/18 06/10/18 09:47 09:47 WBC 16.9 H Hgb MCV 78 L MCH 23 L MCHC RDW 20.0 H Plt Count Lymph % (Auto) 9.1 L Luce % (Auto) 8.5 H Lymph # Luce # 1.4 H Seg Neutrophils % 81.8 H Seg Neuts % (Manual) Lymphocytes % (Manual) Nucleated RBC % Seg Neutrophils # 13.9 H Seg Neutrophils # Man Lymphocytes # (Manual) D-Dimer POC ABG pH POC ABG pCO2 POC ABG pO2 Sodium Chloride Carbon Dioxide BUN Creatinine 0.3 L Glucose 110 H POC Glucose Calcium Magnesium Total Protein 5.9 L Albumin 3.5 L Triglycerides Ur Specific [place] Chest x-ray: report reviewed (Cardiomegaly, mild pulmonary edema, left pleural effusion.), image reviewed Allied health notes reviewed: nursing
[2018-06-10] MEDS: TYLENOL FEEDTUBE PRN (17:16)
[2018-06-10] MEDS ORDERED: PROVENTIL IH PRN (17:42)
[2018-06-10] MEDS: ARIXTRA SUB-Q SCH (22:01)
[2018-06-11] MEDS: ATIVAN IV PRN ×2 (02:47→09:34)
[2018-06-11 06:28] LABS: Basophils # (Auto) 0.1 K/mm3 (0.0-0.1); Eosinophils # (Auto) 0.1 K/mm3 (0.0-0.4); Eosinophils % (Auto) 0.5 % (0.0-4.3); Monocytes % (Auto) 6.4 % (0.0-7.3)
[2018-06-11 06:48] LABS: BUN/Creatinine Ratio 35; Blood Urea Nitrogen 14 mg/dL (7-17); Calcium 8.9 mg/dL (8.4-10.2); Hemolysis Index 20
[2018-06-11] MEDS: BROVANA NEBU IH SCH ×2 (08:00→20:17)
[2018-06-11] MEDS: PULMICORT IH SCH ×2 (08:00→20:17)
[2018-06-11] MEDS: DUONEB *Not for PRN Use IH SCH ×2 (09:04→20:17)
--- NOTE | 2018-06-11 09:08 | Progress Note ---
Assessment and Plan -Septic Shock suspected LLL pneumonia, SOFA score >2 -Acute on chronic combined( hypoxic-hypercapnic) respiratory failure s/p ETT on MVS -Severe AE COPD -AMS with Acute encephalopathy -Macrocytosis -GNR pneumonia, probably secondary to aspiration -Acute encephalaopthy( toxic, metabolic) -History of substance abuse -Thrombocytopenia( multifactorial) -Leukocytosis -Nocturnal BIPAP and prn -Wean supplemental oxygen to keep O2 sats 88-90% -ABGs/CXR prn -Antibiotics per ID -Stress ulcer prophylaxis -VTE prophylaxis -Aspiration precautions -Steroid taper -Chronic home medications -Aspiration precautions -Accuchecks with glycemic control. Target glucose of 140-180 mg/dL -Continue bronchodilators with pulmonary hygiene per RT -Maintenance of sleep -wake cycle -Influenza and pneumonia vaccination per protocol PROGNOSIS GUARDED CONDITION: FAIR CODE STATUS: FULL CODE Subjective Date of service: 06/11/18 Principal diagnosis: Septic Shock (? LLL pneumonia); Ac on Ch hypoxic- hypercapnic Resp failure Interval history: Patient is seen today for: Septic Shock suspected LLL pneumonia, SOFA score > 2; Acute on chronic combined( hypoxic-hypercapnic) respiratory failure s/p ETT MVS; Severe AE COPD; AMS with Acute encephalopathy; Macrocytosis Seen and examined at bedside; 24hour events reviewed; nursing and respiratory care staff consulted; no adverse overnight events reported to me;confused, sitting up in bed, her oxygen is off. Did not use BIPAP last night. Objective Vital Signs - 12hr 06/10/18 06/10/18 06/11/18 22:00 22:04 01:37 Temperature 98.2 F Pulse Rate 107 H 105 H 98 H Pulse Rate [ Anterior Bilateral] Respiratory 18 28 H Rate Respiratory Rate [Anterior Bilateral] Blood Pressure 108/52 O2 Sat by Pulse 84 94 Oximetry 06/11/18 06/11/18 06/11/18 06:38 08:00 08:12 Temperature 98.2 F Pulse Rate 103 H Pulse Rate [ 93 H Anterior Bilateral] Respiratory 22 Rate Respiratory 18 Rate [Anterior Bilateral] Blood Pressure 141/78 O2 Sat by Pulse 89 92 Oximetry 06/11/18 08:57 Temperature Pulse Rate Pulse Rate [ Anterior Bilateral] Respiratory Rate Respiratory Rate [Anterior Bilateral] Blood Pressure O2 Sat by Pulse 92 Oximetry Constitutional: no acute distress, alert, other (elderly chronically ill looking CF;) Eyes: non-icteric ENT: oropharynx moist Neck: supple, no lymphadenopathy, no JVD, other (large neck circumference) Effort: mildly labored Ascultation: Bilateral: diminished breath sounds, rales Percussion: Bilateral: not dull Cardiovascular: regular rate and rhythm, murmur noted (ANGELO), other (S1,S2) Gastrointestinal: normoactive bowel sounds, soft, non-tender, non-distended Integumentary: normal Extremities: no cyanosis, no edema, pink and warm, pulses normal Neurologic: non-focal exam (grossly, moving all extremities), pupils equal and round, unable to assess Psychiatric: other (flat affect) CBC and BMP: 06/12/18 00:19 06/11/18 06:08 ABG, PT/INR, D-dimer: ABG POC ABG pH 7.384 (7.35-7.45) 06/05/18 04:10 POC ABG pCO2 56.3 (35-45) H 06/05/18 04:10 POC ABG pO2 61 (80-105) L 06/05/18 04:10 POC ABG HCO3 33.6 (22-26 mml/L) 06/05/18 04:10 POC ABG Total CO2 35 (23-27mmol/L) 06/05/18 04:10 POC ABG O2 Sat 90 06/05/18 04:10 PT/INR, D-dimer D-Dimer 1062.49 ng/mlDDU (0-234) H 05/28/18 13:13 Abnormal lab findings: Abnormal Labs 05/28/18 05/28/18 05/28/18 13:13 13:13 13:13 WBC Hgb 9.7 L MCV 77 L MCH 23 L MCHC 29 L RDW 19.2 H Plt Count Lymph % (Auto) 8.5 L [place] % (Auto) 11.3 H Lymph # 0.8 L [place] # 1.1 H Seg Neutrophils % 79.8 H Seg Neuts % (Manual) Lymphocytes % (Manual) Nucleated RBC % Seg Neutrophils # Seg Neutrophils # Man Lymphocytes # (Manual) D-Dimer 1062.49 H POC ABG pH POC ABG pCO2 POC ABG pO2 Sodium Potassium Chloride Carbon Dioxide BUN 24 H Creatinine 0.6 L Glucose POC Glucose Calcium Magnesium Total Protein Albumin 3.5 L Triglycerides Ur Specific [place] 05/28/18 05/28/18 05/28/18 13:22 14:50 16:05 WBC Hgb MCV MCH MCHC RDW Plt Count Lymph % (Auto) [place] % (Auto) Lymph # [place] # Seg Neutrophils % Seg Neuts % (Manual) Lymphocytes % (Manual) Nucleated RBC % Seg Neutrophils # Seg Neutrophils # Man Lymphocytes # (Manual) D-Dimer POC ABG pH 7.249 L 7.126 L POC ABG pCO2 68.9 H POC ABG pO2 77 L Sodium Potassium Chloride 109.1 H Carbon Dioxide BUN 22 H Creatinine 0.5 L Glucose POC Glucose Calcium 7.5 L Magnesium Total Protein Albumin Triglycerides Ur Specific [place] 05/28/18 05/28/18 05/28/18 17:57 18:48 22:47 WBC Hgb MCV MCH MCHC RDW Plt Count Lymph % (Auto) [place] % (Auto) Lymph # [place] # Seg Neutrophils % Seg Neuts % (Manual) Lymphocytes % (Manual) Nucleated RBC % Seg Neutrophils # Seg Neutrophils # Man Lymphocytes # (Manual) D-Dimer POC ABG pH 7.195 L 7.312 L POC ABG pCO2 57.5 H POC ABG pO2 57 L 73 L Sodium Potassium Chloride Carbon Dioxide BUN Creatinine Glucose POC Glucose Calcium Magnesium Total Protein Albumin Triglycerides Ur Specific [place] > 1.030 H 05/30/18 05/30/18 05/31/18 06:10 10:42 04:23 WBC Hgb MCV MCH MCHC RDW Plt Count Lymph % (Auto) [place] % (Auto) Lymph # [place] # Seg Neutrophils % Seg Neuts % (Manual) Lymphocytes % (Manual) Nucleated RBC % Seg Neutrophils # Seg Neutrophils # Man Lymphocytes # (Manual) D-Dimer POC ABG pH 7.214 L 7.253 L POC ABG pCO2 64.5 H 56.4 H POC ABG pO2 78 L 74 L Sodium Potassium Chloride Carbon Dioxide BUN Creatinine Glucose POC Glucose Calcium Magnesium Total Protein Albumin Triglycerides Ur Specific [place] 05/31/18 05/31/18 05/31/18 06:30 08:50 08:50 WBC Hgb 9.3 L MCV 78 L MCH 23 L MCHC 29 L RDW 19.8 H Plt Count 131 L Lymph % (Auto) [place] % (Auto) Lymph # [place] # Seg Neutrophils % Seg Neuts % (Manual) 98.0 H Lymphocytes % (Manual) 2.0 L Nucleated RBC % 1.0 H Seg Neutrophils # Seg Neutrophils # Man 8.4 H Lymphocytes # (Manual) 0.2 L D-Dimer POC ABG pH POC ABG pCO2 POC ABG pO2 Sodium 153 H D Potassium Chloride 117.4 H Carbon Dioxide BUN 18 H Creatinine 0.4 L Glucose 159 H POC Glucose 146 H Calcium 8.3 L Magnesium Total Protein Albumin Triglycerides Ur Specific [place] 06/01/18 06/01/18 06/01/18 00:11 03:32 05:50 WBC Hgb 9.8 L MCV 77 L MCH 23 L MCHC 29 L RDW 20.1 H Plt Count 122 L Lymph % (Auto) [place] % (Auto) Lymph # [place] # Seg Neutrophils % Seg Neuts % (Manual) Lymphocytes % (Manual) Nucleated RBC % Seg Neutrophils # Seg Neutrophils # Man Lymphocytes # (Manual) D-Dimer POC ABG pH 7.465 H POC ABG pCO2 POC ABG pO2 Sodium Potassium Chloride Carbon Dioxide BUN Creatinine Glucose POC Glucose 149 H Calcium Magnesium Total Protein Albumin Triglycerides Ur Specific [place] 06/01/18 06/01/18 06/01/18 05:50 05:50 05:51 WBC Hgb MCV MCH MCHC RDW Plt Count Lymph % (Auto) [place] % (Auto) Lymph # [place] # Seg Neutrophils % Seg Neuts % (Manual) Lymphocytes % (Manual) Nucleated RBC % Seg Neutrophils # Seg Neutrophils # Man Lymphocytes # (Manual) D-Dimer POC ABG pH POC ABG pCO2 POC ABG pO2 Sodium 152 H Potassium Chloride 113.7 H Carbon Dioxide BUN 18 H Creatinine 0.3 L Glucose 146 H POC Glucose 146 H Calcium Magnesium 2.40 H Total Protein Albumin Triglycerides 214 H Ur Specific [place] 06/01/18 06/01/18 06/01/18 10:40 11:52 12:06 WBC Hgb MCV MCH MCHC RDW Plt Count Lymph % (Auto) [place] % (Auto) Lymph # [place] # Seg Neutrophils % Seg Neuts % (Manual) Lymphocytes % (Manual) Nucleated RBC % Seg Neutrophils # Seg Neutrophils # Man Lymphocytes # (Manual) D-Dimer POC ABG pH POC ABG pCO2 48.4 H POC ABG pO2 Sodium Potassium Chloride Carbon Dioxide BUN Creatinine Glucose POC Glucose 147 H 138 H Calcium Magnesium Total Protein Albumin Triglycerides Ur Specific [place] 06/01/18 06/02/18 06/02/18 18:08 00:39 04:11 WBC Hgb MCV MCH MCHC RDW Plt Count Lymph % (Auto) [place] % (Auto) Lymph # [place] # Seg Neutrophils % Seg Neuts % (Manual) Lymphocytes % (Manual) Nucleated RBC % Seg Neutrophils # Seg Neutrophils # Man Lymphocytes # (Manual) D-Dimer POC ABG pH POC ABG pCO2 50.3 H POC ABG pO2 72 L Sodium Potassium Chloride Carbon Dioxide BUN Creatinine Glucose POC Glucose 156 H 156 H Calcium Magnesium Total Protein Albumin Triglycerides Ur Specific [place] 06/02/18 06/02/18 06/02/18 05:16 07:47 07:47 WBC Hgb 10.0 L MCV 77 L MCH 23 L MCHC 29 L RDW 18.8 H Plt Count 103 L Lymph % (Auto) [place] % (Auto) Lymph # [place] # Seg Neutrophils % Seg Neuts % (Manual) Lymphocytes % (Manual) Nucleated RBC % Seg Neutrophils # Seg Neutrophils # Man Lymphocytes # (Manual) D-Dimer POC ABG pH POC ABG pCO2 POC ABG pO2 Sodium 148 H Potassium Chloride 109.4 H Carbon Dioxide 32 H BUN 21 H Creatinine 0.3 L Glucose 137 H POC Glucose 150 H Calcium Magnesium Total Protein Albumin Triglycerides Ur Specific [place] 06/02/18 06/02/18 06/02/18 11:46 17:51 19:58 WBC Hgb MCV MCH MCHC RDW Plt Count Lymph % (Auto) [place] % (Auto) Lymph # [place] # Seg Neutrophils % Seg Neuts % (Manual) Lymphocytes % (Manual) Nucleated RBC % Seg Neutrophils # Seg Neutrophils # Man Lymphocytes # (Manual) D-Dimer POC ABG pH POC ABG pCO2 POC ABG pO2 Sodium Potassium Chloride Carbon Dioxide BUN Creatinine Glucose POC Glucose 150 H 135 H 131 H Calcium Magnesium Total Protein Albumin Triglycerides Ur Specific [place] 06/03/18 06/03/18 06/03/18 04:28 04:59 04:59 WBC Hgb MCV 76 L MCH 23 L MCHC RDW 19.1 H Plt Count 99 L Lymph % (Auto) [place] % (Auto) Lymph # [place] # Seg Neutrophils % Seg Neuts % (Manual) Lymphocytes % (Manual) Nucleated RBC % Seg Neutrophils # Seg Neutrophils # Man Lymphocytes # (Manual) D-Dimer POC ABG pH POC ABG pCO2 50.4 H POC ABG pO2 65 L Sodium Potassium Chloride Carbon Dioxide BUN 23 H Creatinine 0.3 L Glucose 167 H POC Glucose Calcium Magnesium Total Protein Albumin Triglycerides Ur Specific [place] 06/03/18 06/03/18 06/03/18 05:17 12:20 17:28 WBC Hgb MCV MCH MCHC RDW Plt Count Lymph % (Auto) [place] % (Auto) Lymph # [place] # Seg Neutrophils % Seg Neuts % (Manual) Lymphocytes % (Manual) Nucleated RBC % Seg Neutrophils # Seg Neutrophils # Man Lymphocytes # (Manual) D-Dimer POC ABG pH POC ABG pCO2 POC ABG pO2 Sodium Potassium Chloride Carbon Dioxide BUN Creatinine Glucose POC Glucose 153 H 155 H 135 H Calcium Magnesium Total Protein Albumin Triglycerides Ur Specific [place] 06/03/18 06/04/18 06/04/18 23:23 04:37 05:15 WBC Hgb MCV MCH MCHC RDW Plt Count Lymph % (Auto) [place] % (Auto) Lymph # [place] # Seg Neutrophils % Seg Neuts % (Manual) Lymphocytes % (Manual) Nucleated RBC % Seg Neutrophils # Seg Neutrophils # Man Lymphocytes # (Manual) D-Dimer POC ABG pH POC ABG pCO2 51.3 H POC ABG pO2 79 L Sodium Potassium Chloride Carbon Dioxide BUN Creatinine Glucose POC Glucose 145 H 140 H Calcium Magnesium Total Protein Albumin Triglycerides Ur Specific [place] 06/04/18 06/04/18 06/05/18 11:47 17:22 01:13 WBC Hgb MCV MCH MCHC RDW Plt Count Lymph % (Auto) [place] % (Auto) Lymph # [place] # Seg Neutrophils % Seg Neuts % (Manual) Lymphocytes % (Manual) Nucleated RBC % Seg Neutrophils # Seg Neutrophils # Man Lymphocytes # (Manual) D-Dimer POC ABG pH POC ABG pCO2 POC ABG pO2 Sodium Potassium Chloride Carbon Dioxide BUN Creatinine Glucose POC Glucose 158 H 131 H 137 H Calcium Magnesium Total Protein Albumin Triglycerides Ur Specific [place] 06/05/18 06/05/18 06/05/18 04:10 06:33 11:41 WBC Hgb MCV MCH MCHC RDW Plt Count Lymph % (Auto) [place] % (Auto) Lymph # [place] # Seg Neutrophils % Seg Neuts % (Manual) Lymphocytes % (Manual) Nucleated RBC % Seg Neutrophils # Seg Neutrophils # Man Lymphocytes # (Manual) D-Dimer POC ABG pH POC ABG pCO2 56.3 H POC ABG pO2 61 L Sodium Potassium Chloride Carbon Dioxide BUN Creatinine Glucose POC Glucose 136 H 150 H Calcium Magnesium Total Protein Albumin Triglycerides Ur Specific [place] 04/19/19 04/19/19 04/19/19 15:27 19:49 22:44 WBC Hgb MCV MCH MCHC RDW Plt Count Lymph % (Auto) [place] % (Auto) Lymph # [place] # Seg Neutrophils % Seg Neuts % (Manual) Lymphocytes % (Manual) Nucleated RBC % Seg Neutrophils # Seg Neutrophils # Man Lymphocytes # (Manual) D-Dimer POC ABG pH POC ABG pCO2 POC ABG pO2 Sodium Potassium Chloride Carbon Dioxide 36 H D BUN 25 H Creatinine 0.4 L Glucose 130 H POC Glucose 125 H 137 H Calcium Magnesium Total Protein Albumin Triglycerides Ur Specific [place] 06/06/18 06/07/18 06/07/18 12:51 18:24 23:45 WBC Hgb MCV MCH MCHC RDW Plt Count Lymph % (Auto) [place] % (Auto) Lymph # [place] # Seg Neutrophils % Seg Neuts % (Manual) Lymphocytes % (Manual) Nucleated RBC % Seg Neutrophils # Seg Neutrophils # Man Lymphocytes # (Manual) D-Dimer POC ABG pH POC ABG pCO2 POC ABG pO2 Sodium Potassium Chloride Carbon Dioxide BUN Creatinine Glucose POC Glucose 66 L 139 H 130 H Calcium Magnesium Total Protein Albumin Triglycerides Ur Specific [place] 06/08/18 06/08/18 06/08/18 03:37 03:37 06:24 WBC Hgb MCV 76 L MCH 24 L MCHC RDW 19.8 H Plt Count 103 L Lymph % (Auto) [place] % (Auto) Lymph # [place] # Seg Neutrophils % Seg Neuts % (Manual) Lymphocytes % (Manual) Nucleated RBC % Seg Neutrophils # Seg Neutrophils # Man Lymphocytes # (Manual) D-Dimer POC ABG pH POC ABG pCO2 POC ABG pO2 Sodium Potassium Chloride Carbon Dioxide BUN Creatinine 0.2 L Glucose 123 H POC Glucose 119 H Calcium 8.3 L Magnesium Total Protein Albumin Triglycerides Ur Specific [place] 06/08/18 06/09/18 06/10/18 23:26 16:38 00:39 WBC Hgb MCV MCH MCHC RDW Plt Count Lymph % (Auto) [place] % (Auto) Lymph # [place] # Seg Neutrophils % Seg Neuts % (Manual) Lymphocytes % (Manual) Nucleated RBC % Seg Neutrophils # Seg Neutrophils # Man Lymphocytes # (Manual) D-Dimer POC ABG pH POC ABG pCO2 POC ABG pO2 Sodium Potassium Chloride Carbon Dioxide BUN Creatinine Glucose POC Glucose 106 H 109 H 114 H Calcium Magnesium Total Protein Albumin Triglycerides Ur Specific [place] 06/10/18 06/10/18 06/11/18 09:47 09:47 00:05 WBC 16.9 H Hgb MCV 78 L MCH 23 L MCHC RDW 20.0 H Plt Count Lymph % (Auto) 9.1 L [place] % (Auto) 8.5 H Lymph # [place] # 1.4 H Seg Neutrophils % 81.8 H Seg Neuts % (Manual) Lymphocytes % (Manual) Nucleated RBC % Seg Neutrophils # 13.9 H Seg Neutrophils # Man Lymphocytes # (Manual) D-Dimer POC ABG pH POC ABG pCO2 POC ABG pO2 Sodium Potassium Chloride Carbon Dioxide BUN Creatinine 0.3 L Glucose 110 H POC Glucose 110 H Calcium Magnesium Total Protein 5.9 L Albumin 3.5 L Triglycerides Ur Specific [place] 06/11/18 06/11/18 06:08 06:08 WBC Hgb MCV MCH MCHC RDW Plt Count Lymph % (Auto) [place] % (Auto) Lymph # [place] # 1.0 H Seg Neutrophils % 83.7 H Seg Neuts % (Manual) Lymphocytes % (Manual) Nucleated RBC % Seg Neutrophils # 13.2 H Seg Neutrophils # Man Lymphocytes # (Manual) D-Dimer POC ABG pH POC ABG pCO2 POC ABG pO2 Sodium Potassium 3.3 L Chloride Carbon Dioxide BUN Creatinine 0.4 L Glucose POC Glucose Calcium Magnesium Total Protein Albumin Triglycerides Ur Specific [place] Allied health notes reviewed: nursing
[2018-06-11] MEDS: LIORESAL PO SCH ×2 (09:31→21:40)
[2018-06-11] MEDS: ZESTRIL PO SCH (09:31)
[2018-06-11] MEDS: DELTASONE PO SCH (09:31)
[2018-06-11] MEDS: BUSPAR PO SCH ×2 (09:31→21:40)
[2018-06-11] MEDS: PREVACID SOLUTAB FEEDTUBE SCH (09:32)
[2018-06-11] MEDS: NORVASC PO SCH (09:32)
[2018-06-11] MEDS: DIFLUCAN PO SCH (09:32)
[2018-06-11] MEDS: SODIUM CHLORIDE FLUSH SYRINGE 10 ML IV SCH ×2 (09:32→21:41)
[2018-06-11 10:04] LABS: Basophils % (Auto) 0.5 % (0.0-1.8); Hematocrit 35.9 % (30.3-42.9); Hemoglobin 10.9 gm/dl (10.1-14.3); Lymphocytes # (Auto) 1.4 K/mm3 (1.2-5.4); Lymphocytes % (Auto) 8.9 % (13.4-35.0); Mean Corpuscular HGB Conc 31 % (30-34); Mean Corpuscular Volume 77 fl (79-97); Platelet Count 145 K/mm3 (140-440); Red Blood Count 4.65 M/mm3 (3.65-5.03); Red Cell Distribution Width 20.3 % (13.2-15.2)
--- NOTE | 2018-06-11 10:51 | Progress Note ---
Assessment and Plan Cultures: 05/28/2018 blood culture: no growth 05/28/2018 Resp culture: E. coli, Pseudomonas aeruginosa 05/31/2018 blood culture: no growth A/P: 58-year-old female with COPD with chronic respiratory failure on home oxygen admitted with shortness of breath and confusion: 1) Septic shock: Improved. Leukocytosis trending down, possibly related to steroids, secondary to left lower lobe pneumonia requiring mechanical ventilation. Cultures growing resistant Pseudomonas, susceptible E.coli. On abx. 2) Acute on chronic respiratory failure with underlying COPD: On NC 3) Acute encephalopathy: likely metabolic. Improving. 4) Spinal hardware noted on imaging, no concern for infection at present. 5) Oral candidisis; Improved Recs: Continue fluconazole 100 mg PO qday, D3 of D5 Continue to monitor WBC CBC ordered for tomorrow [facility] M: [phone] O:[phone] Subjective Date of service: 06/11/18 Principal diagnosis: Septic Shock (? LLL pneumonia); Ac on Ch hypoxic- hypercapnic Resp failure Interval history: Patient seen and examined. Siting up in bed Alert. No acute distress. No SOB or rashes. No fevers. Objective - Exam Narrative Exam: General appearance: Awake, Alert. no acute distress Eyes: anicteric sclerae, moist conjunctivae; no lid-lag; PERRLA HENT: Atraumatic; oropharynx +thrush improved Neck: Trachea midline; supple, no thyromegaly or lymphadenopathy Lungs: CTA emma CV: RRR, Abdomen: Soft, non-tender; no masses or hepatosplenomegaly Extremities: No peripheral edema or extremity lymphadenopathy Skin: Normal temperature, turgor and texture; no rash, ulcers or subcutaneous nodules Psych: alert follows commands - Constitutional Vitals: Vital Signs Temp Pulse Resp BP Pulse Ox 98.2 F 93 H 18 141/78 92 06/11/18 06:38 06/11/18 09:31 06/11/18 08:12 06/11/18 09:31 06/11/18 08:57 Temperature -Last 24 Hours Temperature 98.2 F Temperature 98.2 F Temperature 98.6 F Temperature 97.8 F - Labs CBC & Chem 7: 06/11/18 06:08 06/11/18 06:08 Labs: Abnormal lab results 06/10/18 06/11/18 06/11/18 Range/Units 09:47 00:05 06:08 WBC 15.7 H (4.5-11.0) K/mm3 MCV 77 L (79-97) fl MCH 24 L (28-32) pg RDW 20.3 H (13.2-15.2) % Lymph % (Auto) 8.9 L (13.4-35.0) % [place] # 1.0 H (0.0-0.8) K/mm3 Seg Neutrophils % 83.7 H (40.0-70.0) % Seg Neutrophils # 13.2 H (1.8-7.7) K/mm3 Potassium (3.6-5.0) mmol/L Creatinine 0.3 L (0.7-1.2) mg/dL Glucose 110 H (65-100) mg/dL POC Glucose 110 H (70-105) Total Protein 5.9 L (6.3-8.2) g/dL Albumin 3.5 L (3.9-5) g/dL 06/11/18 Range/Units 06:08 WBC (4.5-11.0) K/mm3 MCV (79-97) fl MCH (28-32) pg RDW (13.2-15.2) % Lymph % (Auto) (13.4-35.0) % [place] # (0.0-0.8) K/mm3 Seg Neutrophils % (40.0-70.0) % Seg Neutrophils # (1.8-7.7) K/mm3 Potassium 3.3 L (3.6-5.0) mmol/L Creatinine 0.4 L (0.7-1.2) mg/dL Glucose (65-100) mg/dL POC Glucose (70-105) Total Protein (6.3-8.2) g/dL Albumin (3.9-5) g/dL
--- NOTE | 2018-06-11 11:33 | Progress Note ---
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 According to chart, pt has not been using her O2 and started hallucinating. She was intubated in the ED. She was also hypotensive in the ED and started on Vasopressor/Levophed --Septic Shock : off pressors BP well maintained -- LLL Pseudomonas/E.coli pneumonia:Sputum culture positive for Pseudomonas/Escherichia coli received 10 days of Levaquin, ID started 5 days of Diflucan, symptoms significantly improved --Sinus Tachycaedia: resolved --AMS with Acute encephalopathy, significant improvement from admission Confused at times, history of substance abuse, psych disorder, psych following --Acute on chronic combined respiratory failure requiring intubation: Now ext ubated --Severe AE COPD: iv steriods continue taper, abx, nebs and titrated to O2 sats more than 90% Evaluation for home oxygen at discharge --DVT prophylaxis: sq Lovenox --Acute thrombocytopenia: Lovenox discontinued, negative for HIT, SCD --Disposition: Physical therapy ,OT Discharge planning per case management Patient's condition and treatment plan discussed in detail with the patient and her nurse History Interval history: Patient seen and examined medical records reviewed Physical therapy was working with her, generalized weakness unable to stand with support Patient severely hypoxic with , Mild distress Vital signs reviewed Hospitalist Physical - Constitutional Vitals: Temp Pulse Resp BP Pulse Ox 98.2 F 93 H 18 141/78 92 06/11/18 06:38 06/11/18 09:31 06/11/18 08:12 06/11/18 09:31 06/11/18 08:57 General appearance: Present: mild distress, well-nourished, obese, other (nasal cannula oxygen) - EENT Eyes: Present: PERRL, EOM intact - Neck Neck: Present: supple, normal ROM - Respiratory Respiratory effort: normal Respiratory: bilateral: diminished, negative: rales, rhonchi, wheezing - Cardiovascular Rhythm: regular Heart Sounds: Present: S1 & S2 - Extremities Extremities: no ischemia, No edema - Abdominal General gastrointestinal: soft, non-tender, non-distended, normal bowel sounds - Integumentary Integumentary: Present: clear, warm - Psychiatric Psychiatric: appropriate mood/affect, cooperative - Neurologic Neurologic: CNII-XII intact, moves all extremities Results - Labs CBC & Chem 7: 06/11/18 06:08 06/11/18 06:08 Labs: Laboratory Last Values WBC 15.7 K/mm3 (4.5-11.0) H 06/11/18 06:08 RBC 4.65 M/mm3 (3.65-5.03) 06/11/18 06:08 Hgb 10.9 gm/dl (10.1-14.3) 06/11/18 06:08 Hct 35.9 % (30.3-42.9) 06/11/18 06:08 MCV 77 fl (79-97) L 06/11/18 06:08 MCH 24 pg (28-32) L 06/11/18 06:08 MCHC 31 % (30-34) 06/11/18 06:08 RDW 20.3 % (13.2-15.2) H 06/11/18 06:08 Plt Count 145 K/mm3 (140-440) 06/11/18 06:08 Lymph % (Auto) 8.9 % (13.4-35.0) L 06/11/18 06:08 [place] % (Auto) 6.4 % (0.0-7.3) 06/11/18 06:08 Eos % (Auto) 0.5 % (0.0-4.3) 06/11/18 06:08 Baso % (Auto) 0.5 % (0.0-1.8) 06/11/18 06:08 Lymph # 1.4 K/mm3 (1.2-5.4) 06/11/18 06:08 [place] # 1.0 K/mm3 (0.0-0.8) H 06/11/18 06:08 Eos # 0.1 K/mm3 (0.0-0.4) 06/11/18 06:08 Baso # 0.1 K/mm3 (0.0-0.1) 06/11/18 06:08 Add Manual Diff Complete 06/11/18 06:08 Total Counted 100 05/31/18 08:50 Seg Neutrophils % 83.7 % (40.0-70.0) H 06/11/18 06:08 Seg Neuts % (Manual) 98.0 % (40.0-70.0) H 05/31/18 08:50 Band Neutrophils % 0 % 05/31/18 08:50 Lymphocytes % (Manual) 2.0 % (13.4-35.0) L 05/31/18 08:50 Reactive Lymphs % (Man) 0 % 05/31/18 08:50 Monocytes % (Manual) 0 % (0.0-7.3) 05/31/18 08:50 Eosinophils % (Manual) 0 % (0.0-4.3) 05/31/18 08:50 Basophils % (Manual) 0 % (0.0-1.8) 05/31/18 08:50 Metamyelocytes % 0 % 05/31/18 08:50 Myelocytes % 0 % 05/31/18 08:50 Promyelocytes % 0 % 05/31/18 08:50 Blast Cells % 0 % 05/31/18 08:50 Nucleated RBC % 1.0 % (0.0-0.9) H 05/31/18 08:50 Seg Neutrophils # 13.2 K/mm3 (1.8-7.7) H 06/11/18 06:08 Seg Neutrophils # Man 8.4 K/mm3 (1.8-7.7) H 05/31/18 08:50 Band Neutrophils # 0.0 K/mm3 05/31/18 08:50 Lymphocytes # (Manual) 0.2 K/mm3 (1.2-5.4) L 05/31/18 08:50 Abs React Lymphs (Man) 0.0 K/mm3 05/31/18 08:50 Monocytes # (Manual) 0.0 K/mm3 (0.0-0.8) 05/31/18 08:50 Eosinophils # (Manual) 0.0 K/mm3 (0.0-0.4) 05/31/18 08:50 Basophils # (Manual) 0.0 K/mm3 (0.0-0.1) 05/31/18 08:50 Metamyelocytes # 0.0 K/mm3 05/31/18 08:50 Myelocytes # 0.0 K/mm3 05/31/18 08:50 Promyelocytes # 0.0 K/mm3 05/31/18 08:50 Blast Cells # 0.0 K/mm3 05/31/18 08:50 WBC Morphology Not Reportable 05/31/18 08:50 Hypersegmented Neuts Not Reportable 05/31/18 08:50 Hyposegmented Neuts Not Reportable 05/31/18 08:50 Hypogranular Neuts Not Reportable 05/31/18 08:50 Smudge Cells Not Reportable 05/31/18 08:50 Toxic Granulation Not Reportable 05/31/18 08:50 Toxic Vacuolation Not Reportable 05/31/18 08:50 Dohle Bodies Not Reportable 05/31/18 08:50 Pelger-Huet Anomaly Not Reportable 05/31/18 08:50 Neha Rods Not Reportable 05/31/18 08:50 Platelet Estimate Consistent w auto 05/31/18 08:50 Clumped Platelets Not Reportable 05/31/18 08:50 Plt Clumps, EDTA Not Reportable 05/31/18 08:50 Large Platelets Not Reportable 05/31/18 08:50 Giant Platelets Not Reportable 05/31/18 08:50 Platelet Satelliting Not Reportable 05/31/18 08:50 Plt Morphology Comment Not Reportable 05/31/18 08:50 RBC Morphology Not Reportable 05/31/18 08:50 Dimorphic RBCs Not Reportable 05/31/18 08:50 Polychromasia Few 05/31/18 08:50 Hypochromasia Few 05/31/18 08:50 Poikilocytosis Not Reportable 05/31/18 08:50 Anisocytosis Not Reportable 05/31/18 08:50 Microcytosis Not Reportable 05/31/18 08:50 Macrocytosis Not Reportable 05/31/18 08:50 Spherocytes Not Reportable 05/31/18 08:50 Pappenheimer Bodies Not Reportable 05/31/18 08:50 Sickle Cells Not Reportable 05/31/18 08:50 Target Cells Not Reportable 05/31/18 08:50 Tear Drop Cells Not Reportable 05/31/18 08:50 Ovalocytes Not Reportable 05/31/18 08:50 Stomatocytes Rare 05/31/18 08:50 Helmet Cells Not Reportable 05/31/18 08:50 Benoit-Herreid Bodies Not Reportable 05/31/18 08:50 [place] Rings Not Reportable 05/31/18 08:50 [place] Cells Not Reportable 05/31/18 08:50 Bite Cells Not Reportable 05/31/18 08:50 Crenated Cell Not Reportable 05/31/18 08:50 Elliptocytes Not Reportable 05/31/18 08:50 Acanthocytes (Spur) Not Reportable 05/31/18 08:50 Rouleaux Not Reportable 05/31/18 08:50 Hemoglobin C Crystals Not Reportable 05/31/18 08:50 Schistocytes Not Reportable 05/31/18 08:50 Malaria parasites Not Reportable 05/31/18 08:50 Hernan Bodies Not Reportable 05/31/18 08:50 Hem Pathologist Commnt No 05/31/18 08:50 D-Dimer 1062.49 ng/mlDDU (0-234) H 05/28/18 13:13 Heparin Anti-Xa, Unfract Negative (Negative) 06/03/18 10:55 POC ABG pH 7.384 (7.35-7.45) 06/05/18 04:10 POC ABG pCO2 56.3 (35-45) H 06/05/18 04:10 POC ABG pO2 61 (80-105) L 06/05/18 04:10 POC ABG HCO3 33.6 (22-26 mml/L) 06/05/18 04:10 POC ABG Total CO2 35 (23-27mmol/L) 06/05/18 04:10 POC ABG O2 Sat 90 06/05/18 04:10 POC ABG Base Excess 9 ((-2) - (+3)mmol/L) 06/05/18 04:10 FiO2 45 % 06/05/18 04:10 Sodium 144 mmol/L (137-145) 06/11/18 06:08 Potassium 3.3 mmol/L (3.6-5.0) L 06/11/18 06:08 Chloride 102.5 mmol/L (98-107) 06/11/18 06:08 Carbon Dioxide 28 mmol/L (22-30) 06/11/18 06:08 Anion Gap 17 mmol/L 06/11/18 06:08 BUN 14 mg/dL (7-17) 06/11/18 06:08 Creatinine 0.4 mg/dL (0.7-1.2) L 06/11/18 06:08 Estimated GFR > 60 ml/min 06/11/18 06:08 BUN/Creatinine Ratio 35 % 06/11/18 06:08 Glucose 88 mg/dL (65-100) 06/11/18 06:08 POC Glucose 83 (70-105) 06/11/18 06:44 Lactic Acid 0.90 mmol/L (0.7-2.0) 05/28/18 14:50 Calcium 8.9 mg/dL (8.4-10.2) 06/11/18 06:08 Magnesium 2.40 mg/dL (1.7-2.3) H 06/01/18 05:50 Total Bilirubin 0.70 mg/dL (0.1-1.2) 06/10/18 09:47 AST 19 units/L (5-40) 06/10/18 09:47 ALT 38 units/L (7-56) 06/10/18 09:47 Alkaline Phosphatase 57 units/L (35-129) 06/10/18 09:47 Troponin T < 0.010 ng/mL (0.00-0.029) 05/28/18 13:13 Total Protein 5.9 g/dL (6.3-8.2) L 06/10/18 09:47 Albumin 3.5 g/dL (3.9-5) L 06/10/18 09:47 Albumin/Globulin Ratio 1.5 % 06/10/18 09:47 Triglycerides 214 mg/dL (2-149) H 06/01/18 05:50 Urine Color Yellow (Yellow) 05/28/18 17:57 Urine Turbidity Clear (Clear) 05/28/18 17:57 Urine pH 6.0 (5.0-7.0) 05/28/18 17:57 Ur Specific [place] > 1.030 (1.003-1.030) H 05/28/18 17:57 Urine Protein 100 mg/dl mg/dL (Negative) 05/28/18 17:57 Urine Glucose (UA) Neg mg/dL (Negative) 05/28/18 17:57 Urine Ketones 20 mg/dL (Negative) 05/28/18 17:57 Urine Blood Sm (Negative) 05/28/18 17:57 Urine Nitrite Neg (Negative) 05/28/18 17:57 Urine Bilirubin Neg (Negative) 05/28/18 17:57 Urine Urobilinogen 2.0 mg/dL (<2.0) 05/28/18 17:57 Ur Leukocyte Esterase Neg (Negative) 05/28/18 17:57 Urine WBC (Auto) 1.0 /HPF (0.0-6.0) 05/28/18 17:57 Urine RBC (Auto) 2.0 /HPF (0.0-6.0) 05/28/18 17:57 U Epithel Cells (Auto) < 1.0 /HPF (0-13.0) 05/28/18 17:57 Urine Mucus Few /HPF 05/28/18 17:57 Random Gentamicin 0.4 ug/mL (0.0-10.0) 06/01/18 05:50 Vancomycin Trough 7.2 ug/mL (5.0-20.0) 05/31/18 09:39 Urine Opiates Screen Presumptive negative 05/29/18 23:50 Urine Methadone Screen Presumptive negative 05/29/18 23:50 Ur Barbiturates Screen Presumptive negative 05/29/18 23:50 Ur Phencyclidine Scrn Presumptive negative 05/29/18 23:50 Ur Amphetamines Screen Presumptive negative 05/29/18 23:50 U Benzodiazepines Scrn Presumptive negative 05/29/18 23:50 Urine Cocaine Screen Presumptive negative 05/29/18 23:50 U Marijuana (THC) Screen Presumptive negative 05/29/18 23:50 Drugs of Abuse Note Disclamer 05/29/18 23:50 Heparin-induced Plt Ab Negative (Negative) 06/03/18 10:55 UF Heparin High Dose 0 % Release 06/03/18 10:55 ESSIE UFH Low Dose 0.1 0 % Release 06/03/18 10:55 ESSIE UFH Low Dose 0.5 0 % Release 06/03/18 10:55 Active Medications - Current Medications Current Medications: Generic Name Dose Route Start Last Admin Trade Name Freq PRN Reason Stop Dose Admin Acetaminophen 650 mg 05/31/18 09:02 06/10/18 17:16 Tylenol FEEDTUBE 650 mg Q6H PRN Administration Non Cardiac Pain or Temp>100.5 Albuterol 2.5 mg 06/10/18 17:42 Proventil IH Q4HRT PRN Shortness Of Breath Albuterol/Ipratropium 1 ampul 06/04/18 20:00 06/11/18 09:04 Duoneb *Not For Prn Use* IH Not Given BIDRT DOMINICK Amlodipine Besylate 10 mg 05/29/18 10:00 06/11/18 09:32 Norvasc PO 10 mg DAILY DOMINICK Administration Lipase/Protease/Amylase 1 each 05/28/18 22:45 Pancrejohanne Pereira 10,500 Unit FEEDTUBE PRN PRN For Clogged Feeding Tube Arformoterol Tartrate 15 mcg 06/04/18 20:00 06/11/18 08:00 Brovana Nebu IH 15 mcg Q12HRT DOMINICK Administration Baclofen 10 mg 05/28/18 23:00 06/11/18 09:31 Lioresal PO 10 mg BID DOMINICK Administration Budesonide 0.5 mg 05/28/18 22:45 06/11/18 08:00 Pulmicort IH 0.5 mg Q12HRT DOMINICK Administration Buspirone HCl 5 mg 05/28/18 23:00 06/11/18 09:31 Buspar PO 5 mg BID DOMINICK Administration Fluconazole 100 mg 06/09/18 10:00 06/11/18 09:32 Diflucan PO 06/13/18 10:01 100 mg QDAY DOMINICK Administration Fondaparinux 2.5 mg 06/09/18 22:00 06/10/18 22:01 Arixtra SUB-Q 2.5 mg DAILY@2200 DOMNIICK Administration Insulin Human Lispro 0 unit 06/01/18 10:00 06/10/18 06:28 Humalog SUB-Q Not Given Q6HR [facility] Protocol Lansoprazole 30 mg 05/30/18 10:00 06/11/18 09:32 Prevacid Solutab FEEDTUBE 30 mg QDAY DOMINICK Administration Lisinopril 10 mg 05/29/18 10:00 06/11/18 09:31 Zestril PO 10 mg QDAY DOMINICK Administration Lorazepam 2 mg 05/31/18 08:39 06/11/18 09:34 Ativan IV 2 mg Q1H PRN Administration CIWA-Ar 8-15 Lorazepam 4 mg 05/31/18 08:39 06/08/18 20:53 Ativan IV 4 mg Q1H PRN Administration CIWA-Ar 16-25 Lorazepam 4 mg 05/31/18 08:39 06/05/18 20:00 Ativan IV 4 mg Q15MIN PRN Administration CIWA-Ar >25 Metoprolol Tartrate 12.5 mg 06/10/18 00:00 Lopressor PO Q6H PRN HR>125 Prednisone 40 mg 06/10/18 10:00 06/11/18 09:31 Deltasone PO 40 mg QDAY DOMINICK Administration Simple Syrup 15 ml 05/28/18 22:45 06/06/18 12:00 Simple Syrup FEEDTUBE 15 ml PRN PRN Administration Hypoglycemia Simple Syrup 30 ml 05/28/18 22:45 Simple Syrup FEEDTUBE PRN PRN Hypoglycemia Sodium Bicarbonate 325 mg 05/28/18 22:45 06/07/18 23:48 Sodium Bicarbonate FEEDTUBE 325 mg PRN PRN Administration For Clogged Feeding Tube Sodium Chloride 10 ml 05/29/18 10:00 06/11/18 09:32 Sodium Chloride Flush Syringe 10 Ml IV 10 ml BID DOMINICK Administration Sodium Chloride 10 ml 05/28/18 22:45 06/06/18 05:50 Sodium Chloride Flush Syringe 10 Ml IV 10 ml PRN PRN Administration LINE FLUSH Nutrition/Malnutrition Assess - Dietary Evaluation Nutrition/Malnutrition Findings: Nutrition Notes Start: 05/29/18 09:32 Freq: Status: Active Protocol: Document 06/09/18 10:53 (Rec: 06/09/18 11:10 [facility]-[id number]) Co-Sign 06/09/18 10:53 LP Nutrition Notes Initial or Follow up Reassessment Current Diagnosis COPD,Hypertension,Respiratory Failure Other Pertinent Diagnosis COPD exacerbation, End-stage lung Dz Current Diet Vital High Protein at 45mL/hr Labs/Tests Cr: 0.2 Glu: 123 POC: 106 Ca: 8.3 Pertinent Medications Humalog Height 5 ft Weight 93.5 kg [place] Body Weight (kg) 45.45 BMI 40.2 Weight Status Obese Subjective/Other Information Patient states appetite is off and on. Pt reports eating 25% of meals. Pt reports nausea. Pt denies chewing/swallowing difficulty. Percent of energy/protein needs met: 41%/27% Burn Absent Trauma Absent #1 Nutrition Diagnosis Inadequate oral intake Diagnosis Progress(for reassessment Continues documentation) Is patient on ventilator? Yes Is Patient Ambulatory and/or Out of Bed No REE-([facility]-confined to bed) 1716.444 Kcal/Kg value to use for calculation 14 Approximate Energy Requirements Using 1309 kcal/Kg Calculation Used for Recommendations Kcal/kg Additional Notes Pro needs 2g/kg IBW: 91g/day Fluid needs 1ml/kcal Nutrition Intervention Change Diet Order: Continue current Add Supplement/Snack (indicate name/kcal Ensure Enlive BID /protein ) Provides kCal: 350 Provides Protein (gm) 20 Goal #1 Meet at least 75% of kcal and pro needs via PO and ONS intake Anticipated Discharge Needs: mechanical soft diet Follow-Up By: 06/11/18 Additional Comments F/U: PO and ONS intake
[2018-06-11] MEDS: ARIXTRA SUB-Q SCH (21:40)
[2018-06-12 01:06] LABS: Mean Corpuscular HGB Conc 30 % (30-34); Mean Corpuscular Volume 77 fl (79-97); Platelet Count 161 K/mm3 (140-440); Red Blood Count 4.67 M/mm3 (3.65-5.03)
[2018-06-12 01:07] LABS: Hematocrit 36.1 % (30.3-42.9); Hemoglobin 10.8 gm/dl (10.1-14.3); Red Cell Distribution Width 20.7 % (13.2-15.2)
[2018-06-12 03:50] LABS: Basophils % (Manual) 0 % (0.0-1.8); Eosinophils % (Manual) 0 % (0.0-4.3); Total Cells Counted 100
[2018-06-12 03:52] LABS: Anisocytosis 1+; Hypochromasia 1+; Ovalocytes Few; Platelet Estimate Consistent w Auto
[2018-06-12] MEDS: PULMICORT IH SCH ×2 (07:32→20:38)
[2018-06-12] MEDS: BROVANA NEBU IH SCH ×2 (07:32→20:38)
[2018-06-12] MEDS: DUONEB *Not for PRN Use IH SCH ×2 (07:33→20:38)
[2018-06-12] MEDS: SODIUM CHLORIDE FLUSH SYRINGE 10 ML IV SCH ×2 (09:29→22:11)
[2018-06-12] MEDS: DELTASONE PO SCH (09:42)
[2018-06-12] MEDS: LIORESAL PO SCH ×2 (09:42→22:10)
[2018-06-12] MEDS: BUSPAR PO SCH ×2 (09:42→22:10)
[2018-06-12] MEDS: ZESTRIL PO SCH (09:43)
[2018-06-12] MEDS: PREVACID SOLUTAB FEEDTUBE SCH (09:43)
[2018-06-12] MEDS: DIFLUCAN PO SCH (09:43)
[2018-06-12] MEDS: NORVASC PO SCH (09:43)
--- NOTE | 2018-06-12 11:57 | Progress Note ---
Assessment and Plan -Septic Shock suspected LLL pneumonia, SOFA score >2 -Acute on chronic combined( hypoxic-hypercapnic) respiratory failure s/p ETT on MVS -Severe AE COPD -AMS with Acute encephalopathy -Macrocytosis -GNR pneumonia, probably secondary to aspiration -Acute encephalaopthy( toxic, metabolic) -History of substance abuse -Thrombocytopenia( multifactorial) -Leukocytosis -Nocturnal BIPAP and prn -Wean supplemental oxygen to keep O2 sats 88-90% -Get CXR now and start gentle diuresis -Monitor renal indices and hemodynamics while on diuretic therapy -Monitor electrolyte, keep potassium and phosphorous, upper limit of normal to optiize respiratory muscle function -ABGs prn -Antibiotics per ID -Stress ulcer prophylaxis -VTE prophylaxis -Aspiration precautions -Steroid taper -Chronic home medications -Aspiration precautions -Accuchecks with glycemic control. Target glucose of 140-180 mg/dL -Continue bronchodilators with pulmonary hygiene per RT -Maintenance of sleep -wake cycle -Influenza and pneumonia vaccination per protocol PROGNOSIS GUARDED CONDITION: FAIR CODE STATUS: FULL CODE Subjective Date of service: 06/12/18 Principal diagnosis: Septic Shock (? LLL pneumonia); Ac on Ch hypoxic- hypercapnic Resp failure Interval history: Patient is seen today for: Septic Shock suspected LLL pneumonia, SOFA score > 2; Acute on chronic combined( hypoxic-hypercapnic) respiratory failure s/p ETT MVS; Severe AE COPD; AMS with Acute encephalopathy; Macrocytosis Seen and examined at bedside; 24hour events reviewed; nursing and respiratory care staff consulted; no adverse overnight events reported to me;confused, intermittently uses NIPPV at night, per RN she desaturates very quickly. No fevers or chills, no nausea or vomiting, no diarrhea Objective Vital Signs - 12hr 06/12/18 06/12/18 06/12/18 00:00 06:38 07:32 Temperature 98.4 F Pulse Rate [ Anterior Bilateral] Respiratory 20 20 Rate Respiratory Rate [Anterior Bilateral] Blood Pressure 118/80 O2 Sat by Pulse 2 L 92 Oximetry 06/12/18 06/12/18 06/12/18 07:33 07:44 09:43 Temperature Pulse Rate [ 82 80 Anterior Bilateral] Respiratory Rate Respiratory 16 16 Rate [Anterior Bilateral] Blood Pressure 112/70 O2 Sat by Pulse Oximetry Constitutional: alert, other (elderly chronically ill looking CF; moderate respiratory distress with increased work of brathing) Eyes: non-icteric ENT: oropharynx moist Neck: supple, no lymphadenopathy, no JVD, other (large neck circumference) Effort: mildly labored Ascultation: Bilateral: diminished breath sounds, rales Percussion: Bilateral: not dull Cardiovascular: regular rate and rhythm, murmur noted (ANGELO), other (S1,S2) Gastrointestinal: normoactive bowel sounds, soft, non-tender, non-distended Integumentary: normal Extremities: no cyanosis, no edema, pink and warm, pulses normal Neurologic: non-focal exam (grossly, moving all extremities), pupils equal and round Psychiatric: other (flat affect, intrmittent confusion) CBC and BMP: 06/12/18 00:19 06/11/18 06:08 ABG, PT/INR, D-dimer: ABG POC ABG pH 7.384 (7.35-7.45) 06/05/18 04:10 POC ABG pCO2 56.3 (35-45) H 06/05/18 04:10 POC ABG pO2 61 (80-105) L 06/05/18 04:10 POC ABG HCO3 33.6 (22-26 mml/L) 06/05/18 04:10 POC ABG Total CO2 35 (23-27mmol/L) 06/05/18 04:10 POC ABG O2 Sat 90 06/05/18 04:10 PT/INR, D-dimer D-Dimer 1062.49 ng/mlDDU (0-234) H 05/28/18 13:13 Abnormal lab findings: Abnormal Labs 05/28/18 05/28/18 05/28/18 13:13 13:13 13:13 WBC Hgb 9.7 L MCV 77 L MCH 23 L MCHC 29 L RDW 19.2 H Plt Count Lymph % (Auto) 8.5 L [place] % (Auto) 11.3 H Lymph # 0.8 L [place] # 1.1 H Seg Neutrophils % 79.8 H Seg Neuts % (Manual) Lymphocytes % (Manual) Nucleated RBC % Seg Neutrophils # Seg Neutrophils # Man Lymphocytes # (Manual) D-Dimer 1062.49 H POC ABG pH POC ABG pCO2 POC ABG pO2 Sodium Potassium Chloride Carbon Dioxide BUN 24 H Creatinine 0.6 L Glucose POC Glucose Calcium Magnesium Total Protein Albumin 3.5 L Triglycerides Ur Specific [place] 05/28/18 05/28/18 05/28/18 13:22 14:50 16:05 WBC Hgb MCV MCH MCHC RDW Plt Count Lymph % (Auto) [place] % (Auto) Lymph # [place] # Seg Neutrophils % Seg Neuts % (Manual) Lymphocytes % (Manual) Nucleated RBC % Seg Neutrophils # Seg Neutrophils # Man Lymphocytes # (Manual) D-Dimer POC ABG pH 7.249 L 7.126 L POC ABG pCO2 68.9 H POC ABG pO2 77 L Sodium Potassium Chloride 109.1 H Carbon Dioxide BUN 22 H Creatinine 0.5 L Glucose POC Glucose Calcium 7.5 L Magnesium Total Protein Albumin Triglycerides Ur Specific [place] 05/28/18 05/28/18 05/28/18 17:57 18:48 22:47 WBC Hgb MCV MCH MCHC RDW Plt Count Lymph % (Auto) [place] % (Auto) Lymph # [place] # Seg Neutrophils % Seg Neuts % (Manual) Lymphocytes % (Manual) Nucleated RBC % Seg Neutrophils # Seg Neutrophils # Man Lymphocytes # (Manual) D-Dimer POC ABG pH 7.195 L 7.312 L POC ABG pCO2 57.5 H POC ABG pO2 57 L 73 L Sodium Potassium Chloride Carbon Dioxide BUN Creatinine Glucose POC Glucose Calcium Magnesium Total Protein Albumin Triglycerides Ur Specific [place] > 1.030 H 05/30/18 05/30/18 05/31/18 06:10 10:42 04:23 WBC Hgb MCV MCH MCHC RDW Plt Count Lymph % (Auto) [place] % (Auto) Lymph # [place] # Seg Neutrophils % Seg Neuts % (Manual) Lymphocytes % (Manual) Nucleated RBC % Seg Neutrophils # Seg Neutrophils # Man Lymphocytes # (Manual) D-Dimer POC ABG pH 7.214 L 7.253 L POC ABG pCO2 64.5 H 56.4 H POC ABG pO2 78 L 74 L Sodium Potassium Chloride Carbon Dioxide BUN Creatinine Glucose POC Glucose Calcium Magnesium Total Protein Albumin Triglycerides Ur Specific [place] 05/31/18 05/31/18 05/31/18 06:30 08:50 08:50 WBC Hgb 9.3 L MCV 78 L MCH 23 L MCHC 29 L RDW 19.8 H Plt Count 131 L Lymph % (Auto) [place] % (Auto) Lymph # [place] # Seg Neutrophils % Seg Neuts % (Manual) 98.0 H Lymphocytes % (Manual) 2.0 L Nucleated RBC % 1.0 H Seg Neutrophils # Seg Neutrophils # Man 8.4 H Lymphocytes # (Manual) 0.2 L D-Dimer POC ABG pH POC ABG pCO2 POC ABG pO2 Sodium 153 H D Potassium Chloride 117.4 H Carbon Dioxide BUN 18 H Creatinine 0.4 L Glucose 159 H POC Glucose 146 H Calcium 8.3 L Magnesium Total Protein Albumin Triglycerides Ur Specific [place] 06/01/18 06/01/18 06/01/18 00:11 03:32 05:50 WBC Hgb 9.8 L MCV 77 L MCH 23 L MCHC 29 L RDW 20.1 H Plt Count 122 L Lymph % (Auto) [place] % (Auto) Lymph # [place] # Seg Neutrophils % Seg Neuts % (Manual) Lymphocytes % (Manual) Nucleated RBC % Seg Neutrophils # Seg Neutrophils # Man Lymphocytes # (Manual) D-Dimer POC ABG pH 7.465 H POC ABG pCO2 POC ABG pO2 Sodium Potassium Chloride Carbon Dioxide BUN Creatinine Glucose POC Glucose 149 H Calcium Magnesium Total Protein Albumin Triglycerides Ur Specific [place] 06/01/18 06/01/18 06/01/18 05:50 05:50 05:51 WBC Hgb MCV MCH MCHC RDW Plt Count Lymph % (Auto) [place] % (Auto) Lymph # [place] # Seg Neutrophils % Seg Neuts % (Manual) Lymphocytes % (Manual) Nucleated RBC % Seg Neutrophils # Seg Neutrophils # Man Lymphocytes # (Manual) D-Dimer POC ABG pH POC ABG pCO2 POC ABG pO2 Sodium 152 H Potassium Chloride 113.7 H Carbon Dioxide BUN 18 H Creatinine 0.3 L Glucose 146 H POC Glucose 146 H Calcium Magnesium 2.40 H Total Protein Albumin Triglycerides 214 H Ur Specific [place] 06/01/18 06/01/18 06/01/18 10:40 11:52 12:06 WBC Hgb MCV MCH MCHC RDW Plt Count Lymph % (Auto) [place] % (Auto) Lymph # [place] # Seg Neutrophils % Seg Neuts % (Manual) Lymphocytes % (Manual) Nucleated RBC % Seg Neutrophils # Seg Neutrophils # Man Lymphocytes # (Manual) D-Dimer POC ABG pH POC ABG pCO2 48.4 H POC ABG pO2 Sodium Potassium Chloride Carbon Dioxide BUN Creatinine Glucose POC Glucose 147 H 138 H Calcium Magnesium Total Protein Albumin Triglycerides Ur Specific [place] 06/01/18 06/02/18 06/02/18 18:08 00:39 04:11 WBC Hgb MCV MCH MCHC RDW Plt Count Lymph % (Auto) [place] % (Auto) Lymph # [place] # Seg Neutrophils % Seg Neuts % (Manual) Lymphocytes % (Manual) Nucleated RBC % Seg Neutrophils # Seg Neutrophils # Man Lymphocytes # (Manual) D-Dimer POC ABG pH POC ABG pCO2 50.3 H POC ABG pO2 72 L Sodium Potassium Chloride Carbon Dioxide BUN Creatinine Glucose POC Glucose 156 H 156 H Calcium Magnesium Total Protein Albumin Triglycerides Ur Specific [place] 06/02/18 06/02/18 06/02/18 05:16 07:47 07:47 WBC Hgb 10.0 L MCV 77 L MCH 23 L MCHC 29 L RDW 18.8 H Plt Count 103 L Lymph % (Auto) [place] % (Auto) Lymph # [place] # Seg Neutrophils % Seg Neuts % (Manual) Lymphocytes % (Manual) Nucleated RBC % Seg Neutrophils # Seg Neutrophils # Man Lymphocytes # (Manual) D-Dimer POC ABG pH POC ABG pCO2 POC ABG pO2 Sodium 148 H Potassium Chloride 109.4 H Carbon Dioxide 32 H BUN 21 H Creatinine 0.3 L Glucose 137 H POC Glucose 150 H Calcium Magnesium Total Protein Albumin Triglycerides Ur Specific [place] 06/02/18 06/02/18 06/02/18 11:46 17:51 19:58 WBC Hgb MCV MCH MCHC RDW Plt Count Lymph % (Auto) [place] % (Auto) Lymph # [place] # Seg Neutrophils % Seg Neuts % (Manual) Lymphocytes % (Manual) Nucleated RBC % Seg Neutrophils # Seg Neutrophils # Man Lymphocytes # (Manual) D-Dimer POC ABG pH POC ABG pCO2 POC ABG pO2 Sodium Potassium Chloride Carbon Dioxide BUN Creatinine Glucose POC Glucose 150 H 135 H 131 H Calcium Magnesium Total Protein Albumin Triglycerides Ur Specific [place] 06/03/18 06/03/18 06/03/18 04:28 04:59 04:59 WBC Hgb MCV 76 L MCH 23 L MCHC RDW 19.1 H Plt Count 99 L Lymph % (Auto) [place] % (Auto) Lymph # [place] # Seg Neutrophils % Seg Neuts % (Manual) Lymphocytes % (Manual) Nucleated RBC % Seg Neutrophils # Seg Neutrophils # Man Lymphocytes # (Manual) D-Dimer POC ABG pH POC ABG pCO2 50.4 H POC ABG pO2 65 L Sodium Potassium Chloride Carbon Dioxide BUN 23 H Creatinine 0.3 L Glucose 167 H POC Glucose Calcium Magnesium Total Protein Albumin Triglycerides Ur Specific [place] 06/03/18 06/03/18 06/03/18 05:17 12:20 17:28 WBC Hgb MCV MCH MCHC RDW Plt Count Lymph % (Auto) [place] % (Auto) Lymph # [place] # Seg Neutrophils % Seg Neuts % (Manual) Lymphocytes % (Manual) Nucleated RBC % Seg Neutrophils # Seg Neutrophils # Man Lymphocytes # (Manual) D-Dimer POC ABG pH POC ABG pCO2 POC ABG pO2 Sodium Potassium Chloride Carbon Dioxide BUN Creatinine Glucose POC Glucose 153 H 155 H 135 H Calcium Magnesium Total Protein Albumin Triglycerides Ur Specific [place] 06/03/18 06/04/18 06/04/18 23:23 04:37 05:15 WBC Hgb MCV MCH MCHC RDW Plt Count Lymph % (Auto) [place] % (Auto) Lymph # [place] # Seg Neutrophils % Seg Neuts % (Manual) Lymphocytes % (Manual) Nucleated RBC % Seg Neutrophils # Seg Neutrophils # Man Lymphocytes # (Manual) D-Dimer POC ABG pH POC ABG pCO2 51.3 H POC ABG pO2 79 L Sodium Potassium Chloride Carbon Dioxide BUN Creatinine Glucose POC Glucose 145 H 140 H Calcium Magnesium Total Protein Albumin Triglycerides Ur Specific [place] 06/04/18 06/04/18 06/05/18 11:47 17:22 01:13 WBC Hgb MCV MCH MCHC RDW Plt Count Lymph % (Auto) [place] % (Auto) Lymph # [place] # Seg Neutrophils % Seg Neuts % (Manual) Lymphocytes % (Manual) Nucleated RBC % Seg Neutrophils # Seg Neutrophils # Man Lymphocytes # (Manual) D-Dimer POC ABG pH POC ABG pCO2 POC ABG pO2 Sodium Potassium Chloride Carbon Dioxide BUN Creatinine Glucose POC Glucose 158 H 131 H 137 H Calcium Magnesium Total Protein Albumin Triglycerides Ur Specific [place] 06/05/18 06/05/18 06/05/18 04:10 06:33 11:41 WBC Hgb MCV MCH MCHC RDW Plt Count Lymph % (Auto) [place] % (Auto) Lymph # [place] # Seg Neutrophils % Seg Neuts % (Manual) Lymphocytes % (Manual) Nucleated RBC % Seg Neutrophils # Seg Neutrophils # Man Lymphocytes # (Manual) D-Dimer POC ABG pH POC ABG pCO2 56.3 H POC ABG pO2 61 L Sodium Potassium Chloride Carbon Dioxide BUN Creatinine Glucose POC Glucose 136 H 150 H Calcium Magnesium Total Protein Albumin Triglycerides Ur Specific [place] 06/05/18 06/05/18 06/05/18 15:27 19:49 22:44 WBC Hgb MCV MCH MCHC RDW Plt Count Lymph % (Auto) [place] % (Auto) Lymph # [place] # Seg Neutrophils % Seg Neuts % (Manual) Lymphocytes % (Manual) Nucleated RBC % Seg Neutrophils # Seg Neutrophils # Man Lymphocytes # (Manual) D-Dimer POC ABG pH POC ABG pCO2 POC ABG pO2 Sodium Potassium Chloride Carbon Dioxide 36 H D BUN 25 H Creatinine 0.4 L Glucose 130 H POC Glucose 125 H 137 H Calcium Magnesium Total Protein Albumin Triglycerides Ur Specific [place] 06/06/18 06/07/18 06/07/18 12:51 18:24 23:45 WBC Hgb MCV MCH MCHC RDW Plt Count Lymph % (Auto) [place] % (Auto) Lymph # [place] # Seg Neutrophils % Seg Neuts % (Manual) Lymphocytes % (Manual) Nucleated RBC % Seg Neutrophils # Seg Neutrophils # Man Lymphocytes # (Manual) D-Dimer POC ABG pH POC ABG pCO2 POC ABG pO2 Sodium Potassium Chloride Carbon Dioxide BUN Creatinine Glucose POC Glucose 66 L 139 H 130 H Calcium Magnesium Total Protein Albumin Triglycerides Ur Specific [place] 06/08/18 06/08/18 06/08/18 03:37 03:37 06:24 WBC Hgb MCV 76 L MCH 24 L MCHC RDW 19.8 H Plt Count 103 L Lymph % (Auto) [place] % (Auto) Lymph # [place] # Seg Neutrophils % Seg Neuts % (Manual) Lymphocytes % (Manual) Nucleated RBC % Seg Neutrophils # Seg Neutrophils # Man Lymphocytes # (Manual) D-Dimer POC ABG pH POC ABG pCO2 POC ABG pO2 Sodium Potassium Chloride Carbon Dioxide BUN Creatinine 0.2 L Glucose 123 H POC Glucose 119 H Calcium 8.3 L Magnesium Total Protein Albumin Triglycerides Ur Specific [place] 06/08/18 06/09/18 06/10/18 23:26 16:38 00:39 WBC Hgb MCV MCH MCHC RDW Plt Count Lymph % (Auto) [place] % (Auto) Lymph # [place] # Seg Neutrophils % Seg Neuts % (Manual) Lymphocytes % (Manual) Nucleated RBC % Seg Neutrophils # Seg Neutrophils # Man Lymphocytes # (Manual) D-Dimer POC ABG pH POC ABG pCO2 POC ABG pO2 Sodium Potassium Chloride Carbon Dioxide BUN Creatinine Glucose POC Glucose 106 H 109 H 114 H Calcium Magnesium Total Protein Albumin Triglycerides Ur Specific [place] 06/10/18 06/10/18 06/11/18 09:47 09:47 00:05 WBC 16.9 H Hgb MCV 78 L MCH 23 L MCHC RDW 20.0 H Plt Count Lymph % (Auto) 9.1 L [place] % (Auto) 8.5 H Lymph # [place] # 1.4 H Seg Neutrophils % 81.8 H Seg Neuts % (Manual) Lymphocytes % (Manual) Nucleated RBC % Seg Neutrophils # 13.9 H Seg Neutrophils # Man Lymphocytes # (Manual) D-Dimer POC ABG pH POC ABG pCO2 POC ABG pO2 Sodium Potassium Chloride Carbon Dioxide BUN Creatinine 0.3 L Glucose 110 H POC Glucose 110 H Calcium Magnesium Total Protein 5.9 L Albumin 3.5 L Triglycerides Ur Specific [place] 06/11/18 06/11/18 06/12/18 06:08 06:08 00:19 WBC 15.7 H 20.3 H Hgb MCV 77 L 77 L MCH 24 L 23 L MCHC RDW 20.3 H 20.7 H Plt Count Lymph % (Auto) 8.9 L [place] % (Auto) Lymph # [place] # 1.0 H Seg Neutrophils % 83.7 H Seg Neuts % (Manual) 93.0 H Lymphocytes % (Manual) 4.0 L Nucleated RBC % Seg Neutrophils # 13.2 H Seg Neutrophils # Man 18.9 H Lymphocytes # (Manual) 0.8 L D-Dimer POC ABG pH POC ABG pCO2 POC ABG pO2 Sodium Potassium 3.3 L Chloride Carbon Dioxide BUN Creatinine 0.4 L Glucose POC Glucose Calcium Magnesium Total Protein Albumin Triglycerides Ur Specific [place] Allied health notes reviewed: nursing
[2018-06-12] MEDS: K-DUR PO SCH (13:20)
[2018-06-12] MEDS: LASIX IV SCH (13:20)
--- NOTE | 2018-06-12 14:40 | Progress Note ---
Assessment and Plan Cultures: 05/28/2018 blood culture: no growth 05/28/2018 Resp culture: E. coli, Pseudomonas aeruginosa 05/31/2018 blood culture: no growth A/P: 58-year-old female with COPD with chronic respiratory failure on home oxygen admitted with shortness of breath and confusion: 1) Septic shock: resolved, off pressors, fever resolved for 5 days; likely secondary to left lower lobe pneumonia requiring mechanical ventilation. Cultures growing resistant Pseudomonas, susceptible E.coli. On abx. Treated with levaquin for 10 days. 2) Acute on chronic respiratory failure with underlying COPD: On mechanical ventilation now on BIPAP 3) Acute encephalopathy: likely metabolic. Improving. 4) Spinal hardware noted on imaging, no concern for infection at present. 5) Oral candidiasis Recs: stop fluconazole 100 mg PO qday x 5 days for oral candidiasis after today's dose monitor off antibiotics will sign off Mirtha Hairston MD Infectious Diseases [employer] [facility] [phone] O [phone] Subjective Date of service: 06/12/18 Principal diagnosis: Septic Shock (? LLL pneumonia); Ac on Ch hypoxic-h ypercapnic Resp failure Interval history: Alert talking unclear speech, wants to be reposition in bed, following commands. No fever for over 5 days. ROS: unable to obtain. Objective - Exam Narrative Exam: General appearance: Alert in NAD on Mask O2 Eyes: anicteric sclerae, moist conjunctivae; no lid-lag; PERRLA HENT: Atraumatic; oropharynx +thrush Neck: Trachea midline; supple, no thyromegaly or lymphadenopathy Lungs: CTA emma CV: RRR, Abdomen: Soft, non-tender; no masses or hepatosplenomegaly Extremities: No peripheral edema or extremity lymphadenopathy Skin: Normal temperature, turgor and texture; no rash, ulcers or subcutaneous nodules Psych: alert follows commands - Constitutional Vitals: Vital Signs Temp Pulse Resp BP Pulse Ox 97.2 F L 102 H 22 102/48 88 06/12/18 13:26 06/12/18 13:26 06/12/18 13:26 06/12/18 13:26 06/12/18 13:26 Temperature -Last 24 Hours Temperature 97.2 F Temperature 98.4 F Temperature 98.3 F Temperature 98.3 F - Labs CBC & Chem 7: 04/26/19 00:19 06/11/18 06:08 Labs: Abnormal lab results 06/12/18 Range/Units 00:19 WBC 20.3 H (4.5-11.0) K/mm3 MCV 77 L (79-97) fl MCH 23 L (28-32) pg RDW 20.7 H (13.2-15.2) % Seg Neuts % (Manual) 93.0 H (40.0-70.0) % Lymphocytes % (Manual) 4.0 L (13.4-35.0) % Seg Neutrophils # Man 18.9 H (1.8-7.7) K/mm3 Lymphocytes # (Manual) 0.8 L (1.2-5.4) K/mm3
--- NOTE | 2018-06-12 14:43 | XRay Report ---
PORTABLE CHEST INDICATION: Acute on chronic hypoxic respiratory failure. COMPARISON: 06/01/2018 FINDINGS: Portable, frontal chest radiograph suggests improved edema/congestive appearance radiographically with now normal bronchovascular markings. Stable cardiomediastinal silhouette with cardiomegaly not excluded. No significant pleural effusions. Spinal rods/hardware again noted with removal of other supporting devices. EKG leads. CONCLUSION: No acute significant chest process, as described. Thank you for the opportunity to participate in this patient's care.
--- NOTE | 2018-06-12 18:26 | Progress Note ---
Assessment and Plan Assessment and plan: Patient is a 58 yo woman with a history of chronic hypoxic respiratory failure due to End stage COPD on home O2, CAD s/p PCI with bare metal stent, cps with recurrent admission for narcotic overdose, PCP toxicity in the past, MDD, dyslipidemia and anemia who presented from home to [facility] ED with AMS. According to chart, pt has not been using her O2 and started hallucinating. She was intubated in the ED. She was also hypotensive in the ED and started on Vasopressor/Levophed --Acute on chronic combined respiratory failure requiring intubation: Now extubated, patient remains hypoxic On nasal cannula oxygen, unable to tolerate physical therapy, continue current management Pulmonary following --Septic Shock : off pressors BP well maintained -- LLL Pseudomonas/E.coli pneumonia:Sputum culture positive for Pseudomonas/Esch erichia coli received 10 days of Levaquin, ID started 5 days of Diflucan, last dose today, symptoms significantly improved --Sinus Tachycaedia: resolved --AMS with Acute encephalopathy, significant improvement from admission Confused at times, history of substance abuse, psych disorder, psych following --Severe AE COPD: iv steriods continue taper, abx, nebs and titrated to O2 sats more than 90% Evaluation for home oxygen at discharge --DVT prophylaxis: sq Lovenox --Acute thrombocytopenia: Lovenox discontinued, negative for HIT, SCD Platelets improved --Disposition: Physical therapy ,OT Discharge planning per case management, possible SNF placement Patient's condition and treatment plan discussed in detail with the patient and her nurse History Interval history: Patient seen and examined medical records reviewed Patient feels slightly better still complains of weakness Oxygen dependent Vital signs noted Hospitalist Physical - Constitutional Vitals: Temp Pulse Resp BP Pulse Ox 97.2 F L 102 H 22 102/48 88 06/12/18 13:26 06/12/18 13:26 06/12/18 13:26 06/12/18 13:26 06/12/18 13:26 General appearance: Present: no acute distress, well-nourished, obese, other (on Ventimask) - EENT Eyes: Present: PERRL, EOM intact - Neck Neck: Present: supple, normal ROM - Respiratory Respiratory effort: normal Respiratory: bilateral: diminished, rhonchi, negative: rales, wheezing - Cardiovascular Rhythm: regular Heart Sounds: Present: S1 & S2 - Extremities Extremities: no ischemia, No edema - Abdominal General gastrointestinal: soft, non-tender, non-distended, normal bowel sounds - Integumentary Integumentary: Present: clear, warm - Psychiatric Psychiatric: appropriate mood/affect, cooperative - Neurologic Neurologic: CNII-XII intact, moves all extremities Results - Labs CBC & Chem 7: 06/12/18 00:19 06/11/18 06:08 Labs: Laboratory Last Values WBC 20.3 K/mm3 (4.5-11.0) H 06/12/18 00:19 RBC 4.67 M/mm3 (3.65-5.03) 06/12/18 00:19 Hgb 10.8 gm/dl (10.1-14.3) 06/12/18 00:19 Hct 36.1 % (30.3-42.9) 06/12/18 00:19 MCV 77 fl (79-97) L 06/12/18 00:19 MCH 23 pg (28-32) L 06/12/18 00:19 MCHC 30 % (30-34) 06/12/18 00:19 RDW 20.7 % (13.2-15.2) H 06/12/18 00:19 Plt Count 161 K/mm3 (140-440) 06/12/18 00:19 Lymph % (Auto) 8.9 % (13.4-35.0) L 06/11/18 06:08 [place] % (Auto) 6.4 % (0.0-7.3) 06/11/18 06:08 Eos % (Auto) 0.5 % (0.0-4.3) 06/11/18 06:08 Baso % (Auto) 0.5 % (0.0-1.8) 06/11/18 06:08 Lymph # 1.4 K/mm3 (1.2-5.4) 06/11/18 06:08 [place] # 1.0 K/mm3 (0.0-0.8) H 06/11/18 06:08 Eos # 0.1 K/mm3 (0.0-0.4) 06/11/18 06:08 Baso # 0.1 K/mm3 (0.0-0.1) 04/25/19 06:08 Add Manual Diff Complete 06/12/18 00:19 Total Counted 100 06/12/18 00:19 Seg Neutrophils % 83.7 % (40.0-70.0) H 06/11/18 06:08 Seg Neuts % (Manual) 93.0 % (40.0-70.0) H 06/12/18 00:19 Band Neutrophils % 0 % 06/12/18 00:19 Lymphocytes % (Manual) 4.0 % (13.4-35.0) L 06/12/18 00:19 Reactive Lymphs % (Man) 0 % 06/12/18 00:19 Monocytes % (Manual) 3.0 % (0.0-7.3) 06/12/18 00:19 Eosinophils % (Manual) 0 % (0.0-4.3) 06/12/18 00:19 Basophils % (Manual) 0 % (0.0-1.8) 06/12/18 00:19 Metamyelocytes % 0 % 06/12/18 00:19 Myelocytes % 0 % 06/12/18 00:19 Promyelocytes % 0 % 06/12/18 00:19 Blast Cells % 0 % 06/12/18 00:19 Nucleated RBC % Not Reportable 06/12/18 00:19 Seg Neutrophils # 13.2 K/mm3 (1.8-7.7) H 06/11/18 06:08 Seg Neutrophils # Man 18.9 K/mm3 (1.8-7.7) H 06/12/18 00:19 Band Neutrophils # 0.0 K/mm3 06/12/18 00:19 Lymphocytes # (Manual) 0.8 K/mm3 (1.2-5.4) L 06/12/18 00:19 Abs React Lymphs (Man) 0.0 K/mm3 06/12/18 00:19 Monocytes # (Manual) 0.6 K/mm3 (0.0-0.8) 06/12/18 00:19 Eosinophils # (Manual) 0.0 K/mm3 (0.0-0.4) 06/12/18 00:19 Basophils # (Manual) 0.0 K/mm3 (0.0-0.1) 06/12/18 00:19 Metamyelocytes # 0.0 K/mm3 04/26/19 00:19 Myelocytes # 0.0 K/mm3 06/12/18 00:19 Promyelocytes # 0.0 K/mm3 06/12/18 00:19 Blast Cells # 0.0 K/mm3 06/12/18 00:19 WBC Morphology Not Reportable 06/12/18 00:19 Hypersegmented Neuts Not Reportable 06/12/18 00:19 Hyposegmented Neuts Not Reportable 06/12/18 00:19 Hypogranular Neuts Not Reportable 06/12/18 00:19 Smudge Cells Not Reportable 06/12/18 00:19 Toxic Granulation Not Reportable 06/12/18 00:19 Toxic Vacuolation Not Reportable 06/12/18 00:19 Dohle Bodies Not Reportable 06/12/18 00:19 Pelger-Huet Anomaly Not Reportable 06/12/18 00:19 Neha Rods Not Reportable 06/12/18 00:19 Platelet Estimate Consistent w auto 06/12/18 00:19 Clumped Platelets Not Reportable 06/12/18 00:19 Plt Clumps, EDTA Not Reportable 06/12/18 00:19 Large Platelets Not Reportable 06/12/18 00:19 Giant Platelets Not Reportable 06/12/18 00:19 Platelet Satelliting Not Reportable 06/12/18 00:19 Plt Morphology Comment Not Reportable 06/12/18 00:19 RBC Morphology Not Reportable 06/12/18 00:19 Dimorphic RBCs Not Reportable 06/12/18 00:19 Polychromasia Not Reportable 06/12/18 00:19 Hypochromasia 1+ 06/12/18 00:19 Poikilocytosis Not Reportable 06/12/18 00:19 Anisocytosis 1+ 06/12/18 00:19 Microcytosis Not Reportable 06/12/18 00:19 Macrocytosis Not Reportable 06/12/18 00:19 Spherocytes Not Reportable 06/12/18 00:19 Pappenheimer Bodies Not Reportable 06/12/18 00:19 Sickle Cells Not Reportable 06/12/18 00:19 Target Cells Not Reportable 06/12/18 00:19 Tear Drop Cells Not Reportable 06/12/18 00:19 Ovalocytes Few 06/12/18 00:19 Stomatocytes Rare 05/31/18 08:50 Helmet Cells Not Reportable 06/12/18 00:19 [place] Bodies Not Reportable 06/12/18 00:19 Lutz Rings Not Reportable 06/12/18 00:19 [place] Cells Not Reportable 06/12/18 00:19 Bite Cells Not Reportable 06/12/18 00:19 Crenated Cell Not Reportable 06/12/18 00:19 Elliptocytes Not Reportable 06/12/18 00:19 Acanthocytes (Spur) Not Reportable 06/12/18 00:19 Rouleaux Not Reportable 06/12/18 00:19 Hemoglobin C Crystals Not Reportable 06/12/18 00:19 Schistocytes Not Reportable 06/12/18 00:19 Malaria parasites Not Reportable 06/12/18 00:19 Hernan Bodies Not Reportable 06/12/18 00:19 Hem Pathologist Commnt No 06/12/18 00:19 D-Dimer 1062.49 ng/mlDDU (0-234) H 05/28/18 13:13 Heparin Anti-Xa, Unfract Negative (Negative) 06/03/18 10:55 POC ABG pH 7.384 (7.35-7.45) 06/05/18 04:10 POC ABG pCO2 56.3 (35-45) H 06/05/18 04:10 POC ABG pO2 61 (80-105) L 06/05/18 04:10 POC ABG HCO3 33.6 (22-26 mml/L) 06/05/18 04:10 POC ABG Total CO2 35 (23-27mmol/L) 06/05/18 04:10 POC ABG O2 Sat 90 06/05/18 04:10 POC ABG Base Excess 9 ((-2) - (+3)mmol/L) 06/05/18 04:10 FiO2 45 % 06/05/18 04:10 Sodium 144 mmol/L (137-145) 06/11/18 06:08 Potassium 3.3 mmol/L (3.6-5.0) L 06/11/18 06:08 Chloride 102.5 mmol/L (98-107) 06/11/18 06:08 Carbon Dioxide 28 mmol/L (22-30) 06/11/18 06:08 Anion Gap 17 mmol/L 06/11/18 06:08 BUN 14 mg/dL (7-17) 06/11/18 06:08 Creatinine 0.4 mg/dL (0.7-1.2) L 06/11/18 06:08 Estimated GFR > 60 ml/min 06/11/18 06:08 BUN/Creatinine Ratio 35 % 06/11/18 06:08 Glucose 88 mg/dL (65-100) 06/11/18 06:08 POC Glucose 83 (70-105) 06/11/18 06:44 Lactic Acid 0.90 mmol/L (0.7-2.0) 05/28/18 14:50 Calcium 8.9 mg/dL (8.4-10.2) 06/11/18 06:08 Magnesium 2.40 mg/dL (1.7-2.3) H 06/01/18 05:50 Total Bilirubin 0.70 mg/dL (0.1-1.2) 06/10/18 09:47 AST 19 units/L (5-40) 06/10/18 09:47 ALT 38 units/L (7-56) 06/10/18 09:47 Alkaline Phosphatase 57 units/L (35-129) 06/10/18 09:47 Troponin T < 0.010 ng/mL (0.00-0.029) 05/28/18 13:13 Total Protein 5.9 g/dL (6.3-8.2) L 06/10/18 09:47 Albumin 3.5 g/dL (3.9-5) L 06/10/18 09:47 Albumin/Globulin Ratio 1.5 % 06/10/18 09:47 Triglycerides 214 mg/dL (2-149) H 06/01/18 05:50 Serotonin Release Assay See scanned results 06/03/18 10:55 Urine Color Yellow (Yellow) 05/28/18 17:57 Urine Turbidity Clear (Clear) 05/28/18 17:57 Urine pH 6.0 (5.0-7.0) 05/28/18 17:57 Ur Specific [place] > 1.030 (1.003-1.030) H 05/28/18 17:57 Urine Protein 100 mg/dl mg/dL (Negative) 05/28/18 17:57 Urine Glucose (UA) Neg mg/dL (Negative) 05/28/18 17:57 Urine Ketones 20 mg/dL (Negative) 05/28/18 17:57 Urine Blood Sm (Negative) 05/28/18 17:57 Urine Nitrite Neg (Negative) 05/28/18 17:57 Urine Bilirubin Neg (Negative) 05/28/18 17:57 Urine Urobilinogen 2.0 mg/dL (<2.0) 05/28/18 17:57 Ur Leukocyte Esterase Neg (Negative) 05/28/18 17:57 Urine WBC (Auto) 1.0 /HPF (0.0-6.0) 05/28/18 17:57 Urine RBC (Auto) 2.0 /HPF (0.0-6.0) 05/28/18 17:57 U Epithel Cells (Auto) < 1.0 /HPF (0-13.0) 05/28/18 17:57 Urine Mucus Few /HPF 05/28/18 17:57 Random Gentamicin 0.4 ug/mL (0.0-10.0) 06/01/18 05:50 Vancomycin Trough 7.2 ug/mL (5.0-20.0) 05/31/18 09:39 Urine Opiates Screen Presumptive negative 05/29/18 23:50 Urine Methadone Screen Presumptive negative 05/29/18 23:50 Ur Barbiturates Screen Presumptive negative 05/29/18 23:50 Ur Phencyclidine Scrn Presumptive negative 05/29/18 23:50 Ur Amphetamines Screen Presumptive negative 05/29/18 23:50 U Benzodiazepines Scrn Presumptive negative 05/29/18 23:50 Urine Cocaine Screen Presumptive negative 05/29/18 23:50 U Marijuana (THC) Screen Presumptive negative 05/29/18 23:50 Drugs of Abuse Note Disclamer 05/29/18 23:50 Heparin-induced Plt Ab Negative (Negative) 06/03/18 10:55 UF Heparin High Dose 0 % Release 06/03/18 10:55 ESSIE UFH Low Dose 0.1 0 % Release 06/03/18 10:55 ESSIE UFH Low Dose 0.5 0 % Release 06/03/18 10:55 Active Medications - Current Medications Current Medications: Generic Name Dose Route Start Last Admin Trade Name Freq PRN Reason Stop Dose Admin Acetaminophen 650 mg 05/31/18 09:02 06/10/18 17:16 Tylenol FEEDTUBE 650 mg Q6H PRN Administration Non Cardiac Pain or Temp>100.5 Albuterol 2.5 mg 06/10/18 17:42 Proventil IH Q4HRT PRN Shortness Of Breath Albuterol/Ipratropium 1 ampul 06/04/18 20:00 06/12/18 07:33 Duoneb *Not For Prn Use* IH Not Given BIDRT DOMINICK Amlodipine Besylate 10 mg 05/29/18 10:00 06/12/18 09:43 Norvasc PO 10 mg DAILY DOMINICK Administration Arformoterol Tartrate 15 mcg 06/04/18 20:00 06/12/18 07:32 Brovana Nebu IH 15 mcg Q12HRT DOMINICK Administration Baclofen 10 mg 05/28/18 23:00 06/12/18 09:42 Lioresal PO 10 mg BID DOMINICK Administration Budesonide 0.5 mg 05/28/18 22:45 06/12/18 07:32 Pulmicort IH 0.5 mg Q12HRT DOMINICK Administration Buspirone HCl 5 mg 05/28/18 23:00 06/12/18 09:42 Buspar PO 5 mg BID DOMINICK Administration Fluconazole 100 mg 06/09/18 10:00 06/12/18 09:43 Diflucan PO 06/13/18 10:01 100 mg QDAY DOMINICK Administration Fondaparinux 2.5 mg 06/09/18 22:00 06/11/18 21:40 Arixtra SUB-Q 2.5 mg DAILY@2200 DOMINICK Administration Furosemide 20 mg 06/12/18 13:00 06/12/18 13:20 Lasix IV 06/16/18 23:59 20 mg QDAY DOMINICK Administration Lansoprazole 30 mg 05/30/18 10:00 06/12/18 09:43 Prevacid Solutab FEEDTUBE 30 mg QDAY DOMINICK Administration Lisinopril 10 mg 05/29/18 10:00 06/12/18 09:43 Zestril PO 10 mg QDAY DOMINICK Administration Lorazepam 2 mg 05/31/18 08:39 06/11/18 09:34 Ativan IV 2 mg Q1H PRN Administration CIWA-Ar 8-15 Lorazepam 4 mg 05/31/18 08:39 06/08/18 20:53 Ativan IV 4 mg Q1H PRN Administration CIWA-Ar 16-25 Lorazepam 4 mg 05/31/18 08:39 06/05/18 20:00 Ativan IV 4 mg Q15MIN PRN Administration CIWA-Ar >25 Metoprolol Tartrate 12.5 mg 06/10/18 00:00 Lopressor PO Q6H PRN HR>125 Potassium Chloride 40 meq 06/12/18 13:00 06/12/18 13:20 K-Dur PO 06/16/18 23:59 40 meq QDAY DOMINICK Administration Prednisone 30 mg 06/13/18 10:00 Deltasone PO QDAY DOMINICK Simple Syrup 15 ml 05/28/18 22:45 06/06/18 12:00 Simple Syrup FEEDTUBE 15 ml PRN PRN Administration Hypoglycemia Simple Syrup 30 ml 05/28/18 22:45 Simple Syrup FEEDTUBE PRN PRN Hypoglycemia Sodium Bicarbonate 325 mg 05/28/18 22:45 06/07/18 23:48 Sodium Bicarbonate FEEDTUBE 325 mg PRN PRN Administration For Clogged Feeding Tube Sodium Chloride 10 ml 05/29/18 10:00 06/12/18 09:29 Sodium Chloride Flush Syringe 10 Ml IV 10 ml BID DOMINICK Administration Sodium Chloride 10 ml 05/28/18 22:45 06/06/18 05:50 Sodium Chloride Flush Syringe 10 Ml IV 10 ml PRN PRN Administration LINE FLUSH Nutrition/Malnutrition Assess - Dietary Evaluation Nutrition/Malnutrition Findings: Nutrition Notes Start: 05/29/18 09:32 Freq: Status: Active Protocol: Document 06/11/18 15:00 RM (Rec: 06/11/18 15:16 RM [email or web address]) Nutrition Notes Initial or Follow up Reassessment Current Diagnosis COPD,Hypertension,Respiratory Failure Other Pertinent Diagnosis Septic shock,Suspected PNA, COPD exacerbation, End-stage lung Dz Current Diet [facility] soft Labs/Tests Reviewed Pertinent Medications Reviewed Height 5 ft Weight 76.4 kg [place] Body Weight (kg) 45.45 BMI 32.8 Weight change and time frame Current wt obtained from [facility]. Previous wt likely inaccurate. Subjective/Other Information Pt somewhat confused at time of visit but stated she does not like the vanilla Ensure Enlive. Pt tech stated that pt is drinking the Ensure Enlive but not eating her meals. Percent of energy/protein needs met: 65%/43% Burn Absent Trauma Absent #1 Nutrition Diagnosis Inadequate oral intake Diagnosis Progress(for reassessment Continues documentation) Is patient on ventilator? No Is Patient Ambulatory and/or Out of Bed No REE-([facility]-confined to bed) 1511.448 Kcal/Kg value to use for calculation 14 Approximate Energy Requirements Using 1070 kcal/Kg Calculation Used for Recommendations Kcal/kg Additional Notes Protein Needs: 92-104g (1.5-1. 7g/kg, 61 kg adjBW) Fluid Needs: 1 ml/kcal Fluid needs 1ml/kcal Nutrition Intervention Change Diet Order: Continue current Add Supplement/Snack (indicate name/kcal Ensure Enlive [place] or /protein ) Chocolate BID Provides kCal: 700 Provides Protein (gm) 40 Goal #1 Meet at least 75% of kcal and pro needs via PO and ONS intake Anticipated Discharge Needs: mechanical soft diet Follow-Up By: 06/16/18 Additional Comments Follow for PO and ONS intakes
[2018-06-12] MEDS: ARIXTRA SUB-Q SCH (22:10)
[2018-06-13] MEDS: TYLENOL FEEDTUBE PRN (03:25)
[2018-06-13 05:19] LABS: Basophils % (Auto) 0.1 % (0.0-1.8); Eosinophils % (Auto) 0.1 % (0.0-4.3); Lymphocytes # (Auto) 1.3 K/mm3 (1.2-5.4); Lymphocytes % (Auto) 7.2 % (13.4-35.0); Mean Corpuscular HGB Conc 30 % (30-34); Mean Corpuscular Volume 78 fl (79-97); Monocytes # (Auto) 1.1 K/mm3 (0.0-0.8); Monocytes % (Auto) 6.3 % (0.0-7.3); Platelet Count 159 K/mm3 (140-440)
[2018-06-13 05:22] LABS: Hematocrit 35.6 % (30.3-42.9); Hemoglobin 10.7 gm/dl (10.1-14.3)
[2018-06-13 05:23] LABS: Red Cell Distribution Width 21.8 % (13.2-15.2)
[2018-06-13 05:41] LABS: BUN/Creatinine Ratio 40; Blood Urea Nitrogen 20 mg/dL (7-17); Calcium 9.2 mg/dL (8.4-10.2); Hemolysis Index 3
--- NOTE | 2018-06-13 08:50 | Progress Note ---
Assessment and Plan Assessment and plan: --Acute on chronic combined respiratory failure requiring intubation: Now extubated, patient remains hypoxic On nasal cannula oxygen, unable to tolerate physical therapy, continue current management Pulmonary following --Septic Shock : off pressors BP well maintained -- LLL Pseudomonas/E.coli pneumonia:Sputum culture positive for Pseudomonas/Escherichia coli received 10 days of Levaquin, ID started 5 days of Diflucan, last dose today, symptoms significantly improved --Sinus Tachycaedia: resolved --AMS with Acute encephalopathy, significant improvement from admission Confused at times, history of substance abuse, psych disorder, psych following --Severe AE COPD: iv steriods continue taper, abx, nebs and titrated to O2 sats more than 90% Evaluation for home oxygen at discharge --End-stage COPD; with chronic hypoxia recommend hospice -- DVT prophylaxis: sq Lovenox , --Acute thrombocytopenia: Lovenox discontinued, negative for HIT, SCD Platelets improved --Disposition: Physical therapy ,OT Discharge planning per case management, possible SNF placement Patient's condition and treatment plan discussed in detail with the patient and her nurse History Interval history: Patient seen and examined medical records reviewed No new events reported by the nursing staff Patient is severely hypoxemic and respiratory distress Noncompliant with BiPAP Patient wants to go home Alert awake oriented, mild distress Vital signs noted Hospitalist Physical - Constitutional Vitals: Temp Pulse Resp BP Pulse Ox 97.7 F 96 H 18 121/52 91 06/13/18 05:41 06/13/18 05:41 06/13/18 05:41 06/13/18 05:41 06/13/18 05:41 General appearance: Present: no acute distress, well-nourished, obese, other (on Ventimask) - EENT Eyes: Present: PERRL, EOM intact - Neck Neck: Present: supple, normal ROM - Respiratory Respiratory effort: normal Respiratory: bilateral: diminished, rhonchi, negative: rales, wheezing - Cardiovascular Rhythm: regular Heart Sounds: Present: S1 & S2 - Extremities Extremities: no ischemia, No edema - Abdominal General gastrointestinal: soft, non-tender, non-distended, normal bowel sounds - Integumentary Integumentary: Present: clear, warm - Psychiatric Psychiatric: appropriate mood/affect, cooperative - Neurologic Neurologic: CNII-XII intact, moves all extremities Results - Labs CBC & Chem 7: 06/13/18 05:00 06/13/18 05:00 Labs: Laboratory Last Values WBC 18.0 K/mm3 (4.5-11.0) H 06/13/18 05:00 RBC 4.60 M/mm3 (3.65-5.03) 06/13/18 05:00 Hgb 10.7 gm/dl (10.1-14.3) 06/13/18 05:00 Hct 35.6 % (30.3-42.9) 06/13/18 05:00 MCV 78 fl (79-97) L 06/13/18 05:00 MCH 23 pg (28-32) L 06/13/18 05:00 MCHC 30 % (30-34) 06/13/18 05:00 RDW 21.8 % (13.2-15.2) H 06/13/18 05:00 Plt Count 159 K/mm3 (140-440) 06/13/18 05:00 Lymph % (Auto) 7.2 % (13.4-35.0) L 06/13/18 05:00 [place] % (Auto) 6.3 % (0.0-7.3) 06/13/18 05:00 Eos % (Auto) 0.1 % (0.0-4.3) 06/13/18 05:00 Baso % (Auto) 0.1 % (0.0-1.8) 06/13/18 05:00 Lymph # 1.3 K/mm3 (1.2-5.4) 06/13/18 05:00 [place] # 1.1 K/mm3 (0.0-0.8) H 06/13/18 05:00 Eos # 0.0 K/mm3 (0.0-0.4) 06/13/18 05:00 Baso # 0.0 K/mm3 (0.0-0.1) 06/13/18 05:00 Add Manual Diff Complete 06/12/18 00:19 Total Counted 100 06/12/18 00:19 Seg Neutrophils % 86.3 % (40.0-70.0) H 06/13/18 05:00 Seg Neuts % (Manual) 93.0 % (40.0-70.0) H 06/12/18 00:19 Band Neutrophils % 0 % 06/12/18 00:19 Lymphocytes % (Manual) 4.0 % (13.4-35.0) L 06/12/18 00:19 Reactive Lymphs % (Man) 0 % 06/12/18 00:19 Monocytes % (Manual) 3.0 % (0.0-7.3) 06/12/18 00:19 Eosinophils % (Manual) 0 % (0.0-4.3) 06/12/18 00:19 Basophils % (Manual) 0 % (0.0-1.8) 06/12/18 00:19 Metamyelocytes % 0 % 06/12/18 00:19 Myelocytes % 0 % 06/12/18 00:19 Promyelocytes % 0 % 06/12/18 00:19 Blast Cells % 0 % 06/12/18 00:19 Nucleated RBC % Not Reportable 06/12/18 00:19 Seg Neutrophils # 15.6 K/mm3 (1.8-7.7) H 06/13/18 05:00 Seg Neutrophils # Man 18.9 K/mm3 (1.8-7.7) H 06/12/18 00:19 Band Neutrophils # 0.0 K/mm3 06/12/18 00:19 Lymphocytes # (Manual) 0.8 K/mm3 (1.2-5.4) L 06/12/18 00:19 Abs React Lymphs (Man) 0.0 K/mm3 06/12/18 00:19 Monocytes # (Manual) 0.6 K/mm3 (0.0-0.8) 06/12/18 00:19 Eosinophils # (Manual) 0.0 K/mm3 (0.0-0.4) 06/12/18 00:19 Basophils # (Manual) 0.0 K/mm3 (0.0-0.1) 06/12/18 00:19 Metamyelocytes # 0.0 K/mm3 06/12/18 00:19 Myelocytes # 0.0 K/mm3 06/12/18 00:19 Promyelocytes # 0.0 K/mm3 06/12/18 00:19 Blast Cells # 0.0 K/mm3 06/12/18 00:19 WBC Morphology Not Reportable 06/12/18 00:19 Hypersegmented Neuts Not Reportable 06/12/18 00:19 Hyposegmented Neuts Not Reportable 06/12/18 00:19 Hypogranular Neuts Not Reportable 06/12/18 00:19 Smudge Cells Not Reportable 06/12/18 00:19 Toxic Granulation Not Reportable 06/12/18 00:19 Toxic Vacuolation Not Reportable 06/12/18 00:19 Dohle Bodies Not Reportable 06/12/18 00:19 Pelger-Huet Anomaly Not Reportable 06/12/18 00:19 Neha Rods Not Reportable 06/12/18 00:19 Platelet Estimate Consistent w auto 06/12/18 00:19 Clumped Platelets Not Reportable 06/12/18 00:19 Plt Clumps, EDTA Not Reportable 06/12/18 00:19 Large Platelets Not Reportable 06/12/18 00:19 Giant Platelets Not Reportable 06/12/18 00:19 Platelet Satelliting Not Reportable 06/12/18 00:19 Plt Morphology Comment Not Reportable 06/12/18 00:19 RBC Morphology Not Reportable 06/12/18 00:19 Dimorphic RBCs Not Reportable 06/12/18 00:19 Polychromasia Not Reportable 06/12/18 00:19 Hypochromasia 1+ 06/12/18 00:19 Poikilocytosis Not Reportable 06/12/18 00:19 Anisocytosis 1+ 06/12/18 00:19 Microcytosis Not Reportable 06/12/18 00:19 Macrocytosis Not Reportable 06/12/18 00:19 Spherocytes Not Reportable 06/12/18 00:19 Pappenheimer Bodies Not Reportable 06/12/18 00:19 Sickle Cells Not Reportable 06/12/18 00:19 Target Cells Not Reportable 06/12/18 00:19 Tear Drop Cells Not Reportable 06/12/18 00:19 Ovalocytes Few 06/12/18 00:19 Stomatocytes Rare 05/31/18 08:50 Helmet Cells Not Reportable 06/12/18 00:19 [place] Bodies Not Reportable 06/12/18 00:19 [place] Rings Not Reportable 06/12/18 00:19 Damien Cells Not Reportable 06/12/18 00:19 Bite Cells Not Reportable 06/12/18 00:19 Crenated Cell Not Reportable 06/12/18 00:19 Elliptocytes Not Reportable 06/12/18 00:19 Acanthocytes (Spur) Not Reportable 06/12/18 00:19 Rouleaux Not Reportable 06/12/18 00:19 Hemoglobin C Crystals Not Reportable 06/12/18 00:19 Schistocytes Not Reportable 06/12/18 00:19 Malaria parasites Not Reportable 06/12/18 00:19 Hernan Bodies Not Reportable 06/12/18 00:19 Hem Pathologist Commnt No 06/12/18 00:19 D-Dimer 1062.49 ng/mlDDU (0-234) H 05/28/18 13:13 Heparin Anti-Xa, Unfract Negative (Negative) 06/03/18 10:55 POC ABG pH 7.384 (7.35-7.45) 06/05/18 04:10 POC ABG pCO2 56.3 (35-45) H 06/05/18 04:10 POC ABG pO2 61 (80-105) L 06/05/18 04:10 POC ABG HCO3 33.6 (22-26 mml/L) 06/05/18 04:10 POC ABG Total CO2 35 (23-27mmol/L) 06/05/18 04:10 POC ABG O2 Sat 90 06/05/18 04:10 POC ABG Base Excess 9 ((-2) - (+3)mmol/L) 06/05/18 04:10 FiO2 45 % 06/05/18 04:10 Sodium 143 mmol/L (137-145) 06/13/18 05:00 Potassium 3.5 mmol/L (3.6-5.0) L 06/13/18 05:00 Chloride 102.7 mmol/L (98-107) 06/13/18 05:00 Carbon Dioxide 26 mmol/L (22-30) 06/13/18 05:00 Anion Gap 18 mmol/L 06/13/18 05:00 BUN 20 mg/dL (7-17) H 06/13/18 05:00 Creatinine 0.5 mg/dL (0.7-1.2) L 06/13/18 05:00 Estimated GFR > 60 ml/min 06/13/18 05:00 BUN/Creatinine Ratio 40 % 06/13/18 05:00 Glucose 138 mg/dL (65-100) H 06/13/18 05:00 POC Glucose 83 (70-105) 06/11/18 06:44 Lactic Acid 0.90 mmol/L (0.7-2.0) 05/28/18 14:50 Calcium 9.2 mg/dL (8.4-10.2) 06/13/18 05:00 Magnesium 2.40 mg/dL (1.7-2.3) H 06/01/18 05:50 Total Bilirubin 0.70 mg/dL (0.1-1.2) 06/10/18 09:47 AST 19 units/L (5-40) 06/10/18 09:47 ALT 38 units/L (7-56) 06/10/18 09:47 Alkaline Phosphatase 57 units/L (35-129) 06/10/18 09:47 Troponin T < 0.010 ng/mL (0.00-0.029) 05/28/18 13:13 Total Protein 5.9 g/dL (6.3-8.2) L 06/10/18 09:47 Albumin 3.5 g/dL (3.9-5) L 06/10/18 09:47 Albumin/Globulin Ratio 1.5 % 06/10/18 09:47 Triglycerides 214 mg/dL (2-149) H 06/01/18 05:50 Serotonin Release Assay See scanned results 06/03/18 10:55 Urine Color Yellow (Yellow) 05/28/18 17:57 Urine Turbidity Clear (Clear) 05/28/18 17:57 Urine pH 6.0 (5.0-7.0) 05/28/18 17:57 Ur Specific [place] > 1.030 (1.003-1.030) H 05/28/18 17:57 Urine Protein 100 mg/dl mg/dL (Negative) 05/28/18 17:57 Urine Glucose (UA) Neg mg/dL (Negative) 05/28/18 17:57 Urine Ketones 20 mg/dL (Negative) 05/28/18 17:57 Urine Blood Sm (Negative) 05/28/18 17:57 Urine Nitrite Neg (Negative) 05/28/18 17:57 Urine Bilirubin Neg (Negative) 05/28/18 17:57 Urine Urobilinogen 2.0 mg/dL (<2.0) 05/28/18 17:57 Ur Leukocyte Esterase Neg (Negative) 05/28/18 17:57 Urine WBC (Auto) 1.0 /HPF (0.0-6.0) 05/28/18 17:57 Urine RBC (Auto) 2.0 /HPF (0.0-6.0) 05/28/18 17:57 U Epithel Cells (Auto) < 1.0 /HPF (0-13.0) 05/28/18 17:57 Urine Mucus Few /HPF 05/28/18 17:57 Random Gentamicin 0.4 ug/mL (0.0-10.0) 06/01/18 05:50 Vancomycin Trough 7.2 ug/mL (5.0-20.0) 05/31/18 09:39 Urine Opiates Screen Presumptive negative 05/29/18 23:50 Urine Methadone Screen Presumptive negative 05/29/18 23:50 Ur Barbiturates Screen Presumptive negative 05/29/18 23:50 Ur Phencyclidine Scrn Presumptive negative 05/29/18 23:50 Ur Amphetamines Screen Presumptive negative 05/29/18 23:50 U Benzodiazepines Scrn Presumptive negative 05/29/18 23:50 Urine Cocaine Screen Presumptive negative 05/29/18 23:50 U Marijuana (THC) Screen Presumptive negative 05/29/18 23:50 Drugs of Abuse Note Disclamer 05/29/18 23:50 Heparin-induced Plt Ab Negative (Negative) 06/03/18 10:55 UF Heparin High Dose 0 % Release 06/03/18 10:55 ESSIE UFH Low Dose 0.1 0 % Release 06/03/18 10:55 ESSIE UFH Low Dose 0.5 0 % Release 06/03/18 10:55 Active Medications - Current Medications Current Medications: Generic Name Dose Route Start Last Admin Trade Name Freq PRN Reason Stop Dose Admin Acetaminophen 650 mg 05/31/18 09:02 06/13/18 03:25 Tylenol FEEDTUBE 650 mg Q6H PRN Administration Non Cardiac Pain or Temp>100.5 Albuterol 2.5 mg 06/10/18 17:42 Proventil IH Q4HRT PRN Shortness Of Breath Albuterol/Ipratropium 1 ampul 06/04/18 20:00 06/12/18 20:38 Duoneb *Not For Prn Use* IH 1 ampul BIDRT DOMINICK Administration Amlodipine Besylate 10 mg 05/29/18 10:00 06/12/18 09:43 Norvasc PO 10 mg DAILY DOMINICK Administration Arformoterol Tartrate 15 mcg 06/04/18 20:00 06/12/18 20:38 Brokelvin Lynneu IH 15 mcg Q12HRT DOMINICK Administration Baclofen 10 mg 05/28/18 23:00 06/12/18 22:10 Lioresal PO 10 mg BID DOMINICK Administration Budesonide 0.5 mg 05/28/18 22:45 06/12/18 20:38 Pulmicort IH 0.5 mg Q12HRT DOMINICK Administration Buspirone HCl 5 mg 05/28/18 23:00 06/12/18 22:10 Buspar PO 5 mg BID DOMINICK Administration Fluconazole 100 mg 06/09/18 10:00 06/12/18 09:43 Diflucan PO 06/13/18 10:01 100 mg QDAY DOMINICK Administration Fondaparinux 2.5 mg 06/09/18 22:00 06/12/18 22:10 Arixtra SUB-Q 2.5 mg DAILY@2200 DOMINICK Administration Furosemide 20 mg 06/12/18 13:00 06/12/18 13:20 Lasix IV 06/16/18 23:59 20 mg QDAY DOMINICK Administration Lansoprazole 30 mg 05/30/18 10:00 06/12/18 09:43 Prevacid Solutab FEEDTUBE 30 mg QDAY DOMINICK Administration Lisinopril 10 mg 05/29/18 10:00 06/12/18 09:43 Zestril PO 10 mg QDAY DOMINICK Administration Lorazepam 2 mg 05/31/18 08:39 06/11/18 09:34 Ativan IV 2 mg Q1H PRN Administration CIWA-Ar 8-15 Lorazepam 4 mg 05/31/18 08:39 06/08/18 20:53 Ativan IV 4 mg Q1H PRN Administration CIWA-Ar 16-25 Lorazepam 4 mg 05/31/18 08:39 06/05/18 20:00 Ativan IV 4 mg Q15MIN PRN Administration CIWA-Ar >25 Metoprolol Tartrate 12.5 mg 06/10/18 00:00 Lopressor PO Q6H PRN HR>125 Potassium Chloride 40 meq 06/12/18 13:00 06/12/18 13:20 K-Dur PO 06/16/18 23:59 40 meq QDAY DOMINICK Administration Prednisone 30 mg 06/13/18 10:00 Deltasone PO QDAY DOMINICK Simple Syrup 15 ml 05/28/18 22:45 06/06/18 12:00 Simple Syrup FEEDTUBE 15 ml PRN PRN Administration Hypoglycemia Simple Syrup 30 ml 05/28/18 22:45 Simple Syrup FEEDTUBE PRN PRN Hypoglycemia Sodium Bicarbonate 325 mg 05/28/18 22:45 06/07/18 23:48 Sodium Bicarbonate FEEDTUBE 325 mg PRN PRN Administration For Clogged Feeding Tube Sodium Chloride 10 ml 05/29/18 10:00 06/12/18 22:11 Sodium Chloride Flush Syringe 10 Ml IV 10 ml BID DOMINICK Administration Sodium Chloride 10 ml 05/28/18 22:45 06/06/18 05:50 Sodium Chloride Flush Syringe 10 Ml IV 10 ml PRN PRN Administration LINE FLUSH Nutrition/Malnutrition Assess - Dietary Evaluation Nutrition/Malnutrition Findings: Nutrition Notes Start: 05/29/18 09:32 Freq: Status: Active Protocol: Document 06/11/18 15:00 RM (Rec: 06/11/18 15:16 RM [id number]) Nutrition Notes Initial or Follow up Reassessment Current Diagnosis COPD,Hypertension,Respiratory Failure Other Pertinent Diagnosis Septic shock,Suspected PNA, COPD exacerbation, End-stage lung Dz Current Diet [facility] soft Labs/Tests Reviewed Pertinent Medications Reviewed Height 5 ft Weight 76.4 kg [place] Body Weight (kg) 45.45 BMI 32.8 Weight change and time frame Current wt obtained from [facility]. Previous wt likely inaccurate. Subjective/Other Information Pt somewhat confused at time of visit but stated she does not like the vanilla Ensure Enlive. Pt tech stated that pt is drinking the Ensure Enlive but not eating her meals. Percent of energy/protein needs met: 65%/43% Burn Absent Trauma Absent #1 Nutrition Diagnosis Inadequate oral intake Diagnosis Progress(for reassessment Continues documentation) Is patient on ventilator? No Is Patient Ambulatory and/or Out of Bed No REE-([facility]-confined to bed) 1511.448 Kcal/Kg value to use for calculation 14 Approximate Energy Requirements Using 1070 kcal/Kg Calculation Used for Recommendations Kcal/kg Additional Notes Protein Needs: 92-104g (1.5-1. 7g/kg, 61 kg adjBW) Fluid Needs: 1 ml/kcal Fluid needs 1ml/kcal Nutrition Intervention Change Diet Order: Continue current Add Supplement/Snack (indicate name/kcal Ensure Enlive [place] or /protein ) Chocolate BID Provides kCal: 700 Provides Protein (gm) 40 Goal #1 Meet at least 75% of kcal and pro needs via PO and ONS intake Anticipated Discharge Needs: mechanical soft diet Follow-Up By: 06/16/18 Additional Comments Follow for PO and ONS intakes
[2018-06-13] MEDS: K-DUR PO SCH (09:31)
[2018-06-13] MEDS: DELTASONE PO SCH (09:32)
[2018-06-13] MEDS: NORVASC PO SCH (09:33)
[2018-06-13] MEDS: LASIX IV SCH (09:35)
[2018-06-13] MEDS: DIFLUCAN PO SCH (09:35)
[2018-06-13] MEDS: BUSPAR PO SCH ×2 (09:36→21:11)
[2018-06-13] MEDS: LIORESAL PO SCH ×2 (09:36→21:11)
[2018-06-13] MEDS: PREVACID SOLUTAB FEEDTUBE SCH (09:37)
[2018-06-13] MEDS: SODIUM CHLORIDE FLUSH SYRINGE 10 ML IV SCH ×2 (09:37→21:12)
[2018-06-13] MEDS: ATIVAN IV PRN (09:41)
[2018-06-13] MEDS: DUONEB *Not for PRN Use IH SCH ×2 (10:05→19:51)
[2018-06-13] MEDS: BROVANA NEBU IH SCH ×2 (10:05→19:51)
[2018-06-13] MEDS: PULMICORT IH SCH ×2 (10:05→19:51)
[2018-06-13] MEDS: ZESTRIL PO SCH (11:33)
[2018-06-13] MEDS ORDERED: VENLAFAXINE HCL 100 MG PO SCH (12:00)
--- NOTE | 2018-06-13 12:43 | Progress Note ---
Assessment and Plan Septic Shock suspected LLL pneumonia, SOFA score >2 Acute on chronic combined( hypoxic-hypercapnic) respiratory failure s/p ETT MVS Severe AE COPD AMS with Acute encephalopathy Macrocytosis GNR pneumonia, probably secondary to aspiration Acute encephalaopthy( toxic, metabolic) History of substance abuse - continue BIPAP qhs wityh prn daytime use - watch closely; transfer to [facility] if remains on continuous BIPAP - continue scheduled duonebs bid - continue systemic steroids with slow taper (on prednisone now) - continue brovana & pulmicort - PT/OT to increase ambulation - bilateral lower extremity dopplers negative for DVT - continue to wean supplemental oxygen to keep O2 sats 90% - tapered off seroquel - prn ABGs/CXR at this point - s/p empiric antibiotics for aspiration PNA - continue Stress ulcer prophylaxis - continue VTE prophylaxis - resume chronic home medications per attending - continue accuchecks with glycemic control for target glucose of 140-180 mg/dL - Continue bronchodilators with pulmonary hygiene per RT - continue maintenance of sleep -wake cycle - continue mobility as tolerated by hemodynamics - Influenza and pneumonia vaccination addressed per protocol ... will likely need placement PROGNOSIS guarded to fair CODE STATUS: FULL CODE Subjective Date of service: 06/13/18 Principal diagnosis: Septic Shock (? LLL pneumonia); Ac on Ch hypoxic- hypercapnic Resp failure Interval history: Patient is seen today for: Septic Shock suspected LLL pneumonia, SOFA score > 2; Acute on chronic combined( hypoxic-hypercapnic) respiratory failure s/p ETT MVS; Severe AE COPD; AMS with Acute encephalopathy; Macrocytosis Seen and examined at bedside; 24hour events reviewed; nursing and respiratory care staff consulted; no adverse overnight events reported to me; sitting in bed; intermittent tripod position; on BIPAP; denies acute chest pains; No N/V/F/C Objective Vital Signs - 12hr 06/13/18 06/13/18 06/13/18 03:25 04:25 05:41 Temperature 97.7 F Pulse Rate 96 H Pulse Rate [ Anterior Bilateral] Respiratory 20 18 18 Rate Respiratory Rate [Anterior Bilateral] Blood Pressure 121/52 O2 Sat by Pulse 91 Oximetry 06/13/18 06/13/18 06/13/18 10:00 10:05 10:17 Temperature Pulse Rate Pulse Rate [ 113 H 105 H Anterior Bilateral] Respiratory Rate Respiratory 28 H 28 H Rate [Anterior Bilateral] Blood Pressure O2 Sat by Pulse 95 Oximetry Constitutional: appears uncomfortable, other (elderly chronically ill looking CF; normocephalic and with mild patient-vent dyssynchrony) Eyes: non-icteric ENT: oropharynx moist, other (extubated) Neck: supple, no lymphadenopathy, no JVD, other (large neck circumference) Effort: mildly labored Ascultation: Bilateral: diminished breath sounds, rales, other (prolonged exp phase) Percussion: Bilateral: not dull Cardiovascular: regular rate and rhythm Gastrointestinal: normoactive bowel sounds, soft, non-tender, non-distended Integumentary: normal Extremities: no cyanosis, no edema, pink and warm, pulses normal Neurologic: non-focal exam (grossly), pupils equal and round, CN II-XII normal, motor strength normal and Psychiatric: mood appropriate, affect normal CBC and BMP: 06/13/18 05:00 06/13/18 05:00 ABG, PT/INR, D-dimer: ABG POC ABG pH 7.384 (7.35-7.45) 06/05/18 04:10 POC ABG pCO2 56.3 (35-45) H 06/05/18 04:10 POC ABG pO2 61 (80-105) L 06/05/18 04:10 POC ABG HCO3 33.6 (22-26 mml/L) 06/05/18 04:10 POC ABG Total CO2 35 (23-27mmol/L) 06/05/18 04:10 POC ABG O2 Sat 90 06/05/18 04:10 PT/INR, D-dimer D-Dimer 1062.49 ng/mlDDU (0-234) H 05/28/18 13:13 Abnormal lab findings: Abnormal Labs 05/28/18 05/28/18 05/28/18 13:13 13:13 13:13 WBC Hgb 9.7 L MCV 77 L MCH 23 L MCHC 29 L RDW 19.2 H Plt Count Lymph % (Auto) 8.5 L [place] % (Auto) 11.3 H Lymph # 0.8 L [place] # 1.1 H Seg Neutrophils % 79.8 H Seg Neuts % (Manual) Lymphocytes % (Manual) Nucleated RBC % Seg Neutrophils # Seg Neutrophils # Man Lymphocytes # (Manual) D-Dimer 1062.49 H POC ABG pH POC ABG pCO2 POC ABG pO2 Sodium Potassium Chloride Carbon Dioxide BUN 24 H Creatinine 0.6 L Glucose POC Glucose Calcium Magnesium Total Protein Albumin 3.5 L Triglycerides Ur Specific [place] 05/28/18 05/28/18 05/28/18 13:22 14:50 16:05 WBC Hgb MCV MCH MCHC RDW Plt Count Lymph % (Auto) [place] % (Auto) Lymph # [place] # Seg Neutrophils % Seg Neuts % (Manual) Lymphocytes % (Manual) Nucleated RBC % Seg Neutrophils # Seg Neutrophils # Man Lymphocytes # (Manual) D-Dimer POC ABG pH 7.249 L 7.126 L POC ABG pCO2 68.9 H POC ABG pO2 77 L Sodium Potassium Chloride 109.1 H Carbon Dioxide BUN 22 H Creatinine 0.5 L Glucose POC Glucose Calcium 7.5 L Magnesium Total Protein Albumin Triglycerides Ur Specific [place] 05/28/18 05/28/18 05/28/18 17:57 18:48 22:47 WBC Hgb MCV MCH MCHC RDW Plt Count Lymph % (Auto) [place] % (Auto) Lymph # [place] # Seg Neutrophils % Seg Neuts % (Manual) Lymphocytes % (Manual) Nucleated RBC % Seg Neutrophils # Seg Neutrophils # Man Lymphocytes # (Manual) D-Dimer POC ABG pH 7.195 L 7.312 L POC ABG pCO2 57.5 H POC ABG pO2 57 L 73 L Sodium Potassium Chloride Carbon Dioxide BUN Creatinine Glucose POC Glucose Calcium Magnesium Total Protein Albumin Triglycerides Ur Specific [place] > 1.030 H 05/30/18 05/30/18 05/31/18 06:10 10:42 04:23 WBC Hgb MCV MCH MCHC RDW Plt Count Lymph % (Auto) [place] % (Auto) Lymph # [place] # Seg Neutrophils % Seg Neuts % (Manual) Lymphocytes % (Manual) Nucleated RBC % Seg Neutrophils # Seg Neutrophils # Man Lymphocytes # (Manual) D-Dimer POC ABG pH 7.214 L 7.253 L POC ABG pCO2 64.5 H 56.4 H POC ABG pO2 78 L 74 L Sodium Potassium Chloride Carbon Dioxide BUN Creatinine Glucose POC Glucose Calcium Magnesium Total Protein Albumin Triglycerides Ur Specific [place] 05/31/18 05/31/18 05/31/18 06:30 08:50 08:50 WBC Hgb 9.3 L MCV 78 L MCH 23 L MCHC 29 L RDW 19.8 H Plt Count 131 L Lymph % (Auto) [place] % (Auto) Lymph # [place] # Seg Neutrophils % Seg Neuts % (Manual) 98.0 H Lymphocytes % (Manual) 2.0 L Nucleated RBC % 1.0 H Seg Neutrophils # Seg Neutrophils # Man 8.4 H Lymphocytes # (Manual) 0.2 L D-Dimer POC ABG pH POC ABG pCO2 POC ABG pO2 Sodium 153 H D Potassium Chloride 117.4 H Carbon Dioxide BUN 18 H Creatinine 0.4 L Glucose 159 H POC Glucose 146 H Calcium 8.3 L Magnesium Total Protein Albumin Triglycerides Ur Specific [place] 06/01/18 06/01/18 06/01/18 00:11 03:32 05:50 WBC Hgb 9.8 L MCV 77 L MCH 23 L MCHC 29 L RDW 20.1 H Plt Count 122 L Lymph % (Auto) [place] % (Auto) Lymph # [place] # Seg Neutrophils % Seg Neuts % (Manual) Lymphocytes % (Manual) Nucleated RBC % Seg Neutrophils # Seg Neutrophils # Man Lymphocytes # (Manual) D-Dimer POC ABG pH 7.465 H POC ABG pCO2 POC ABG pO2 Sodium Potassium Chloride Carbon Dioxide BUN Creatinine Glucose POC Glucose 149 H Calcium Magnesium Total Protein Albumin Triglycerides Ur Specific [place] 06/01/18 06/01/18 06/01/18 05:50 05:50 05:51 WBC Hgb MCV MCH MCHC RDW Plt Count Lymph % (Auto) [place] % (Auto) Lymph # [place] # Seg Neutrophils % Seg Neuts % (Manual) Lymphocytes % (Manual) Nucleated RBC % Seg Neutrophils # Seg Neutrophils # Man Lymphocytes # (Manual) D-Dimer POC ABG pH POC ABG pCO2 POC ABG pO2 Sodium 152 H Potassium Chloride 113.7 H Carbon Dioxide BUN 18 H Creatinine 0.3 L Glucose 146 H POC Glucose 146 H Calcium Magnesium 2.40 H Total Protein Albumin Triglycerides 214 H Ur Specific [place] 06/01/18 06/01/18 06/01/18 10:40 11:52 12:06 WBC Hgb MCV MCH MCHC RDW Plt Count Lymph % (Auto) [place] % (Auto) Lymph # [place] # Seg Neutrophils % Seg Neuts % (Manual) Lymphocytes % (Manual) Nucleated RBC % Seg Neutrophils # Seg Neutrophils # Man Lymphocytes # (Manual) D-Dimer POC ABG pH POC ABG pCO2 48.4 H POC ABG pO2 Sodium Potassium Chloride Carbon Dioxide BUN Creatinine Glucose POC Glucose 147 H 138 H Calcium Magnesium Total Protein Albumin Triglycerides Ur Specific [place] 06/01/18 06/02/18 06/02/18 18:08 00:39 04:11 WBC Hgb MCV MCH MCHC RDW Plt Count Lymph % (Auto) [place] % (Auto) Lymph # [place] # Seg Neutrophils % Seg Neuts % (Manual) Lymphocytes % (Manual) Nucleated RBC % Seg Neutrophils # Seg Neutrophils # Man Lymphocytes # (Manual) D-Dimer POC ABG pH POC ABG pCO2 50.3 H POC ABG pO2 72 L Sodium Potassium Chloride Carbon Dioxide BUN Creatinine Glucose POC Glucose 156 H 156 H Calcium Magnesium Total Protein Albumin Triglycerides Ur Specific [place] 06/02/18 06/02/18 06/02/18 05:16 07:47 07:47 WBC Hgb 10.0 L MCV 77 L MCH 23 L MCHC 29 L RDW 18.8 H Plt Count 103 L Lymph % (Auto) [place] % (Auto) Lymph # [place] # Seg Neutrophils % Seg Neuts % (Manual) Lymphocytes % (Manual) Nucleated RBC % Seg Neutrophils # Seg Neutrophils # Man Lymphocytes # (Manual) D-Dimer POC ABG pH POC ABG pCO2 POC ABG pO2 Sodium 148 H Potassium Chloride 109.4 H Carbon Dioxide 32 H BUN 21 H Creatinine 0.3 L Glucose 137 H POC Glucose 150 H Calcium Magnesium Total Protein Albumin Triglycerides Ur Specific [place] 06/02/18 06/02/18 06/02/18 11:46 17:51 19:58 WBC Hgb MCV MCH MCHC RDW Plt Count Lymph % (Auto) [place] % (Auto) Lymph # [place] # Seg Neutrophils % Seg Neuts % (Manual) Lymphocytes % (Manual) Nucleated RBC % Seg Neutrophils # Seg Neutrophils # Man Lymphocytes # (Manual) D-Dimer POC ABG pH POC ABG pCO2 POC ABG pO2 Sodium Potassium Chloride Carbon Dioxide BUN Creatinine Glucose POC Glucose 150 H 135 H 131 H Calcium Magnesium Total Protein Albumin Triglycerides Ur Specific [place] 06/03/18 06/03/18 06/03/18 04:28 04:59 04:59 WBC Hgb MCV 76 L MCH 23 L MCHC RDW 19.1 H Plt Count 99 L Lymph % (Auto) [place] % (Auto) Lymph # [place] # Seg Neutrophils % Seg Neuts % (Manual) Lymphocytes % (Manual) Nucleated RBC % Seg Neutrophils # Seg Neutrophils # Man Lymphocytes # (Manual) D-Dimer POC ABG pH POC ABG pCO2 50.4 H POC ABG pO2 65 L Sodium Potassium Chloride Carbon Dioxide BUN 23 H Creatinine 0.3 L Glucose 167 H POC Glucose Calcium Magnesium Total Protein Albumin Triglycerides Ur Specific [place] 06/03/18 06/03/18 06/03/18 05:17 12:20 17:28 WBC Hgb MCV MCH MCHC RDW Plt Count Lymph % (Auto) [place] % (Auto) Lymph # [place] # Seg Neutrophils % Seg Neuts % (Manual) Lymphocytes % (Manual) Nucleated RBC % Seg Neutrophils # Seg Neutrophils # Man Lymphocytes # (Manual) D-Dimer POC ABG pH POC ABG pCO2 POC ABG pO2 Sodium Potassium Chloride Carbon Dioxide BUN Creatinine Glucose POC Glucose 153 H 155 H 135 H Calcium Magnesium Total Protein Albumin Triglycerides Ur Specific [place] 06/03/18 06/04/18 06/04/18 23:23 04:37 05:15 WBC Hgb MCV MCH MCHC RDW Plt Count Lymph % (Auto) [place] % (Auto) Lymph # [place] # Seg Neutrophils % Seg Neuts % (Manual) Lymphocytes % (Manual) Nucleated RBC % Seg Neutrophils # Seg Neutrophils # Man Lymphocytes # (Manual) D-Dimer POC ABG pH POC ABG pCO2 51.3 H POC ABG pO2 79 L Sodium Potassium Chloride Carbon Dioxide BUN Creatinine Glucose POC Glucose 145 H 140 H Calcium Magnesium Total Protein Albumin Triglycerides Ur Specific [place] 06/04/18 06/04/18 06/05/18 11:47 17:22 01:13 WBC Hgb MCV MCH MCHC RDW Plt Count Lymph % (Auto) [place] % (Auto) Lymph # [place] # Seg Neutrophils % Seg Neuts % (Manual) Lymphocytes % (Manual) Nucleated RBC % Seg Neutrophils # Seg Neutrophils # Man Lymphocytes # (Manual) D-Dimer POC ABG pH POC ABG pCO2 POC ABG pO2 Sodium Potassium Chloride Carbon Dioxide BUN Creatinine Glucose POC Glucose 158 H 131 H 137 H Calcium Magnesium Total Protein Albumin Triglycerides Ur Specific [place] 06/05/18 06/05/18 06/05/18 04:10 06:33 11:41 WBC Hgb MCV MCH MCHC RDW Plt Count Lymph % (Auto) [place] % (Auto) Lymph # [place] # Seg Neutrophils % Seg Neuts % (Manual) Lymphocytes % (Manual) Nucleated RBC % Seg Neutrophils # Seg Neutrophils # Man Lymphocytes # (Manual) D-Dimer POC ABG pH POC ABG pCO2 56.3 H POC ABG pO2 61 L Sodium Potassium Chloride Carbon Dioxide BUN Creatinine Glucose POC Glucose 136 H 150 H Calcium Magnesium Total Protein Albumin Triglycerides Ur Specific [place] 06/05/18 06/05/18 06/05/18 15:27 19:49 22:44 WBC Hgb MCV MCH MCHC RDW Plt Count Lymph % (Auto) [place] % (Auto) Lymph # [place] # Seg Neutrophils % Seg Neuts % (Manual) Lymphocytes % (Manual) Nucleated RBC % Seg Neutrophils # Seg Neutrophils # Man Lymphocytes # (Manual) D-Dimer POC ABG pH POC ABG pCO2 POC ABG pO2 Sodium Potassium Chloride Carbon Dioxide 36 H D BUN 25 H Creatinine 0.4 L Glucose 130 H POC Glucose 125 H 137 H Calcium Magnesium Total Protein Albumin Triglycerides Ur Specific [place] 06/06/18 06/07/18 06/07/18 12:51 18:24 23:45 WBC Hgb MCV MCH MCHC RDW Plt Count Lymph % (Auto) [place] % (Auto) Lymph # [place] # Seg Neutrophils % Seg Neuts % (Manual) Lymphocytes % (Manual) Nucleated RBC % Seg Neutrophils # Seg Neutrophils # Man Lymphocytes # (Manual) D-Dimer POC ABG pH POC ABG pCO2 POC ABG pO2 Sodium Potassium Chloride Carbon Dioxide BUN Creatinine Glucose POC Glucose 66 L 139 H 130 H Calcium Magnesium Total Protein Albumin Triglycerides Ur Specific [place] 06/08/18 06/08/18 06/08/18 03:37 03:37 06:24 WBC Hgb MCV 76 L MCH 24 L MCHC RDW 19.8 H Plt Count 103 L Lymph % (Auto) [place] % (Auto) Lymph # [place] # Seg Neutrophils % Seg Neuts % (Manual) Lymphocytes % (Manual) Nucleated RBC % Seg Neutrophils # Seg Neutrophils # Man Lymphocytes # (Manual) D-Dimer POC ABG pH POC ABG pCO2 POC ABG pO2 Sodium Potassium Chloride Carbon Dioxide BUN Creatinine 0.2 L Glucose 123 H POC Glucose 119 H Calcium 8.3 L Magnesium Total Protein Albumin Triglycerides Ur Specific [place] 06/08/18 06/09/18 06/10/18 23:26 16:38 00:39 WBC Hgb MCV MCH MCHC RDW Plt Count Lymph % (Auto) [place] % (Auto) Lymph # [place] # Seg Neutrophils % Seg Neuts % (Manual) Lymphocytes % (Manual) Nucleated RBC % Seg Neutrophils # Seg Neutrophils # Man Lymphocytes # (Manual) D-Dimer POC ABG pH POC ABG pCO2 POC ABG pO2 Sodium Potassium Chloride Carbon Dioxide BUN Creatinine Glucose POC Glucose 106 H 109 H 114 H Calcium Magnesium Total Protein Albumin Triglycerides Ur Specific [place] 06/10/18 06/10/18 06/11/18 09:47 09:47 00:05 WBC 16.9 H Hgb MCV 78 L MCH 23 L MCHC RDW 20.0 H Plt Count Lymph % (Auto) 9.1 L [place] % (Auto) 8.5 H Lymph # [place] # 1.4 H Seg Neutrophils % 81.8 H Seg Neuts % (Manual) Lymphocytes % (Manual) Nucleated RBC % Seg Neutrophils # 13.9 H Seg Neutrophils # Man Lymphocytes # (Manual) D-Dimer POC ABG pH POC ABG pCO2 POC ABG pO2 Sodium Potassium Chloride Carbon Dioxide BUN Creatinine 0.3 L Glucose 110 H POC Glucose 110 H Calcium Magnesium Total Protein 5.9 L Albumin 3.5 L Triglycerides Ur Specific [place] 06/11/18 06/11/18 06/12/18 06:08 06:08 00:19 WBC 15.7 H 20.3 H Hgb MCV 77 L 77 L MCH 24 L 23 L MCHC RDW 20.3 H 20.7 H Plt Count Lymph % (Auto) 8.9 L [place] % (Auto) Lymph # [place] # 1.0 H Seg Neutrophils % 83.7 H Seg Neuts % (Manual) 93.0 H Lymphocytes % (Manual) 4.0 L Nucleated RBC % Seg Neutrophils # 13.2 H Seg Neutrophils # Man 18.9 H Lymphocytes # (Manual) 0.8 L D-Dimer POC ABG pH POC ABG pCO2 POC ABG pO2 Sodium Potassium 3.3 L Chloride Carbon Dioxide BUN Creatinine 0.4 L Glucose POC Glucose Calcium Magnesium Total Protein Albumin Triglycerides Ur Specific [place] 06/13/18 06/13/18 05:00 05:00 WBC 18.0 H Hgb MCV 78 L MCH 23 L MCHC RDW 21.8 H Plt Count Lymph % (Auto) 7.2 L [place] % (Auto) Lymph # [place] # 1.1 H Seg Neutrophils % 86.3 H Seg Neuts % (Manual) Lymphocytes % (Manual) Nucleated RBC % Seg Neutrophils # 15.6 H Seg Neutrophils # Man Lymphocytes # (Manual) D-Dimer POC ABG pH POC ABG pCO2 POC ABG pO2 Sodium Potassium 3.5 L Chloride Carbon Dioxide BUN 20 H Creatinine 0.5 L Glucose 138 H POC Glucose Calcium Magnesium Total Protein Albumin Triglycerides Ur Specific [place] Allied health notes reviewed: nursing
[2018-06-13] MEDS: XANAX PO PRN ×2 (12:47→21:11)
[2018-06-13] MEDS: EFFEXOR PO SCH ×2 (14:07→19:22)
[2018-06-13] MEDS: ARIXTRA SUB-Q SCH (21:11)
[2018-06-14] MEDS: ATIVAN IV PRN (03:38)
[2018-06-14] MEDS: XANAX PO PRN ×2 (08:17→21:00)
[2018-06-14] MEDS: TYLENOL FEEDTUBE PRN (08:17)
[2018-06-14] MEDS: PULMICORT IH SCH ×2 (08:44→19:44)
[2018-06-14] MEDS: BROVANA NEBU IH SCH ×2 (08:44→19:43)
[2018-06-14] MEDS: DUONEB *Not for PRN Use IH SCH ×2 (08:45→19:43)
--- NOTE | 2018-06-14 08:52 | Progress Note ---
Assessment and Plan Assessment and plan: --Acute on chronic combined respiratory failure requiring intubation: Now extubated, patient remains hypoxic On nasal cannula oxygen, unable to tolerate physical therapy, continue current management Pulmonary following --Septic Shock : off pressors BP well maintained -- LLL Pseudomonas/E.coli pneumonia:Sputum culture positive for Pseudomonas/Escherichia coli received 10 days of Levaquin, received 5 days of Diflucan, monitor off antibiotics and antifungals --Sinus Tachycaedia: resolved --AMS with Acute encephalopathy, significant improvement from admission Confused at times, history of substance abuse, psych disorder, psych following --Severe AE COPD: iv steriods continue taper, abx, nebs and titrated to O2 sats more than 90% Evaluation for home oxygen at discharge --End-stage COPD; with chronic hypoxia recommend hospice --Acute thrombocytopenia: Lovenox discontinued, negative for HIT, SCD Platelets improved --Disposition: Physical therapy ,OT -- DVT prophylaxis: sq Lovenox , Discharge planning per case management, possible SNF placement Patient's condition and treatment plan discussed in detail with the patient and her nurse History Interval history: Patient seen and examined medical records reviewed Today The patient feels slightly better, tolerating BiPAP Alert awake oriented Vital signs noted Hospitalist Physical - Constitutional Vitals: Temp Pulse Resp BP Pulse Ox 97.7 F 95 H 23 123/41 95 06/14/18 04:38 06/14/18 04:38 06/14/18 04:38 06/14/18 04:38 06/14/18 04:38 General appearance: Present: no acute distress, well-nourished, obese, other (on Ventimask) - EENT Eyes: Present: PERRL, EOM intact - Neck Neck: Present: supple, normal ROM - Respiratory Respiratory effort: normal Respiratory: bilateral: diminished, rales, negative: rhonchi, wheezing - Cardiovascular Rhythm: regular Heart Sounds: Present: S1 & S2 - Extremities Extremities: no ischemia, No edema Extremity abnormal: edema - Abdominal General gastrointestinal: soft, non-tender, non-distended, normal bowel sounds - Integumentary Integumentary: Present: clear, warm - Psychiatric Psychiatric: appropriate mood/affect, cooperative - Neurologic Neurologic: moves all extremities Results - Labs CBC & Chem 7: 06/13/18 05:00 06/13/18 05:00 Labs: Laboratory Last Values WBC 18.0 K/mm3 (4.5-11.0) H 06/13/18 05:00 RBC 4.60 M/mm3 (3.65-5.03) 06/13/18 05:00 Hgb 10.7 gm/dl (10.1-14.3) 06/13/18 05:00 Hct 35.6 % (30.3-42.9) 06/13/18 05:00 MCV 78 fl (79-97) L 06/13/18 05:00 MCH 23 pg (28-32) L 06/13/18 05:00 MCHC 30 % (30-34) 06/13/18 05:00 RDW 21.8 % (13.2-15.2) H 06/13/18 05:00 Plt Count 159 K/mm3 (140-440) 06/13/18 05:00 Lymph % (Auto) 7.2 % (13.4-35.0) L 06/13/18 05:00 [place] % (Auto) 6.3 % (0.0-7.3) 06/13/18 05:00 Eos % (Auto) 0.1 % (0.0-4.3) 06/13/18 05:00 Baso % (Auto) 0.1 % (0.0-1.8) 06/13/18 05:00 Lymph # 1.3 K/mm3 (1.2-5.4) 06/13/18 05:00 [place] # 1.1 K/mm3 (0.0-0.8) H 06/13/18 05:00 Eos # 0.0 K/mm3 (0.0-0.4) 06/13/18 05:00 Baso # 0.0 K/mm3 (0.0-0.1) 06/13/18 05:00 Add Manual Diff Complete 06/12/18 00:19 Total Counted 100 06/12/18 00:19 Seg Neutrophils % 86.3 % (40.0-70.0) H 06/13/18 05:00 Seg Neuts % (Manual) 93.0 % (40.0-70.0) H 06/12/18 00:19 Band Neutrophils % 0 % 06/12/18 00:19 Lymphocytes % (Manual) 4.0 % (13.4-35.0) L 06/12/18 00:19 Reactive Lymphs % (Man) 0 % 06/12/18 00:19 Monocytes % (Manual) 3.0 % (0.0-7.3) 06/12/18 00:19 Eosinophils % (Manual) 0 % (0.0-4.3) 06/12/18 00:19 Basophils % (Manual) 0 % (0.0-1.8) 06/12/18 00:19 Metamyelocytes % 0 % 06/12/18 00:19 Myelocytes % 0 % 06/12/18 00:19 Promyelocytes % 0 % 06/12/18 00:19 Blast Cells % 0 % 06/12/18 00:19 Nucleated RBC % Not Reportable 06/12/18 00:19 Seg Neutrophils # 15.6 K/mm3 (1.8-7.7) H 06/13/18 05:00 Seg Neutrophils # Man 18.9 K/mm3 (1.8-7.7) H 06/12/18 00:19 Band Neutrophils # 0.0 K/mm3 06/12/18 00:19 Lymphocytes # (Manual) 0.8 K/mm3 (1.2-5.4) L 06/12/18 00:19 Abs React Lymphs (Man) 0.0 K/mm3 06/12/18 00:19 Monocytes # (Manual) 0.6 K/mm3 (0.0-0.8) 06/12/18 00:19 Eosinophils # (Manual) 0.0 K/mm3 (0.0-0.4) 06/12/18 00:19 Basophils # (Manual) 0.0 K/mm3 (0.0-0.1) 06/12/18 00:19 Metamyelocytes # 0.0 K/mm3 06/12/18 00:19 Myelocytes # 0.0 K/mm3 06/12/18 00:19 Promyelocytes # 0.0 K/mm3 06/12/18 00:19 Blast Cells # 0.0 K/mm3 06/12/18 00:19 WBC Morphology Not Reportable 06/12/18 00:19 Hypersegmented Neuts Not Reportable 06/12/18 00:19 Hyposegmented Neuts Not Reportable 06/12/18 00:19 Hypogranular Neuts Not Reportable 06/12/18 00:19 Smudge Cells Not Reportable 06/12/18 00:19 Toxic Granulation Not Reportable 06/12/18 00:19 Toxic Vacuolation Not Reportable 06/12/18 00:19 Dohle Bodies Not Reportable 06/12/18 00:19 Pelger-Huet Anomaly Not Reportable 06/12/18 00:19 Neha Rods Not Reportable 06/12/18 00:19 Platelet Estimate Consistent w auto 06/12/18 00:19 Clumped Platelets Not Reportable 06/12/18 00:19 Plt Clumps, EDTA Not Reportable 06/12/18 00:19 Large Platelets Not Reportable 06/12/18 00:19 Giant Platelets Not Reportable 06/12/18 00:19 Platelet Satelliting Not Reportable 06/12/18 00:19 Plt Morphology Comment Not Reportable 06/12/18 00:19 RBC Morphology Not Reportable 06/12/18 00:19 Dimorphic RBCs Not Reportable 06/12/18 00:19 Polychromasia Not Reportable 06/12/18 00:19 Hypochromasia 1+ 06/12/18 00:19 Poikilocytosis Not Reportable 06/12/18 00:19 Anisocytosis 1+ 06/12/18 00:19 Microcytosis Not Reportable 06/12/18 00:19 Macrocytosis Not Reportable 06/12/18 00:19 Spherocytes Not Reportable 06/12/18 00:19 Pappenheimer Bodies Not Reportable 06/12/18 00:19 Sickle Cells Not Reportable 06/12/18 00:19 Target Cells Not Reportable 06/12/18 00:19 Tear Drop Cells Not Reportable 06/12/18 00:19 Ovalocytes Few 06/12/18 00:19 Stomatocytes Rare 05/31/18 08:50 Helmet Cells Not Reportable 06/12/18 00:19 [place] Bodies Not Reportable 06/12/18 00:19 [place] Rings Not Reportable 06/12/18 00:19 Damien Cells Not Reportable 06/12/18 00:19 Bite Cells Not Reportable 06/12/18 00:19 Crenated Cell Not Reportable 06/12/18 00:19 Elliptocytes Not Reportable 06/12/18 00:19 Acanthocytes (Spur) Not Reportable 06/12/18 00:19 Rouleaux Not Reportable 06/12/18 00:19 Hemoglobin C Crystals Not Reportable 06/12/18 00:19 Schistocytes Not Reportable 06/12/18 00:19 Malaria parasites Not Reportable 06/12/18 00:19 Hernan Bodies Not Reportable 06/12/18 00:19 Hem Pathologist Commnt No 06/12/18 00:19 D-Dimer 1062.49 ng/mlDDU (0-234) H 05/28/18 13:13 Heparin Anti-Xa, Unfract Negative (Negative) 06/03/18 10:55 POC ABG pH 7.384 (7.35-7.45) 06/05/18 04:10 POC ABG pCO2 56.3 (35-45) H 06/05/18 04:10 POC ABG pO2 61 (80-105) L 06/05/18 04:10 POC ABG HCO3 33.6 (22-26 mml/L) 06/05/18 04:10 POC ABG Total CO2 35 (23-27mmol/L) 06/05/18 04:10 POC ABG O2 Sat 90 06/05/18 04:10 POC ABG Base Excess 9 ((-2) - (+3)mmol/L) 06/05/18 04:10 FiO2 45 % 06/05/18 04:10 Sodium 143 mmol/L (137-145) 06/13/18 05:00 Potassium 3.5 mmol/L (3.6-5.0) L 06/13/18 05:00 Chloride 102.7 mmol/L (98-107) 06/13/18 05:00 Carbon Dioxide 26 mmol/L (22-30) 06/13/18 05:00 Anion Gap 18 mmol/L 06/13/18 05:00 BUN 20 mg/dL (7-17) H 06/13/18 05:00 Creatinine 0.5 mg/dL (0.7-1.2) L 06/13/18 05:00 Estimated GFR > 60 ml/min 06/13/18 05:00 BUN/Creatinine Ratio 40 % 06/13/18 05:00 Glucose 138 mg/dL (65-100) H 06/13/18 05:00 POC Glucose 83 (70-105) 06/11/18 06:44 Lactic Acid 0.90 mmol/L (0.7-2.0) 05/28/18 14:50 Calcium 9.2 mg/dL (8.4-10.2) 06/13/18 05:00 Magnesium 2.40 mg/dL (1.7-2.3) H 06/01/18 05:50 Total Bilirubin 0.70 mg/dL (0.1-1.2) 06/10/18 09:47 AST 19 units/L (5-40) 06/10/18 09:47 ALT 38 units/L (7-56) 06/10/18 09:47 Alkaline Phosphatase 57 units/L (35-129) 06/10/18 09:47 Troponin T < 0.010 ng/mL (0.00-0.029) 05/28/18 13:13 Total Protein 5.9 g/dL (6.3-8.2) L 06/10/18 09:47 Albumin 3.5 g/dL (3.9-5) L 06/10/18 09:47 Albumin/Globulin Ratio 1.5 % 06/10/18 09:47 Triglycerides 214 mg/dL (2-149) H 06/01/18 05:50 Serotonin Release Assay See scanned results 06/03/18 10:55 Urine Color Yellow (Yellow) 05/28/18 17:57 Urine Turbidity Clear (Clear) 05/28/18 17:57 Urine pH 6.0 (5.0-7.0) 05/28/18 17:57 Ur Specific [place] > 1.030 (1.003-1.030) H 05/28/18 17:57 Urine Protein 100 mg/dl mg/dL (Negative) 05/28/18 17:57 Urine Glucose (UA) Neg mg/dL (Negative) 05/28/18 17:57 Urine Ketones 20 mg/dL (Negative) 05/28/18 17:57 Urine Blood Sm (Negative) 05/28/18 17:57 Urine Nitrite Neg (Negative) 05/28/18 17:57 Urine Bilirubin Neg (Negative) 05/28/18 17:57 Urine Urobilinogen 2.0 mg/dL (<2.0) 05/28/18 17:57 Ur Leukocyte Esterase Neg (Negative) 05/28/18 17:57 Urine WBC (Auto) 1.0 /HPF (0.0-6.0) 05/28/18 17:57 Urine RBC (Auto) 2.0 /HPF (0.0-6.0) 05/28/18 17:57 U Epithel Cells (Auto) < 1.0 /HPF (0-13.0) 05/28/18 17:57 Urine Mucus Few /HPF 05/28/18 17:57 Random Gentamicin 0.4 ug/mL (0.0-10.0) 06/01/18 05:50 Vancomycin Trough 7.2 ug/mL (5.0-20.0) 05/31/18 09:39 Urine Opiates Screen Presumptive negative 05/29/18 23:50 Urine Methadone Screen Presumptive negative 05/29/18 23:50 Ur Barbiturates Screen Presumptive negative 05/29/18 23:50 Ur Phencyclidine Scrn Presumptive negative 05/29/18 23:50 Ur Amphetamines Screen Presumptive negative 05/29/18 23:50 U Benzodiazepines Scrn Presumptive negative 05/29/18 23:50 Urine Cocaine Screen Presumptive negative 05/29/18 23:50 U Marijuana (THC) Screen Presumptive negative 05/29/18 23:50 Drugs of Abuse Note Disclamer 05/29/18 23:50 Heparin-induced Plt Ab Negative (Negative) 06/03/18 10:55 UF Heparin High Dose 0 % Release 06/03/18 10:55 ESSIE UFH Low Dose 0.1 0 % Release 06/03/18 10:55 ESSIE UFH Low Dose 0.5 0 % Release 06/03/18 10:55 Active Medications - Current Medications Current Medications: Generic Name Dose Route Start Last Admin Trade Name Freq PRN Reason Stop Dose Admin Acetaminophen 650 mg 06/14/18 08:20 Tylenol PO Q6H PRN Pain, Mild (1-3) Albuterol 2.5 mg 06/10/18 17:42 Proventil IH Q4HRT PRN Shortness Of Breath Albuterol/Ipratropium 1 ampul 06/04/18 20:00 06/14/18 08:45 Duoneb *Not For Prn Use* IH Not Given BIDRT DOMINICK Alprazolam 0.25 mg 06/13/18 11:07 06/14/18 08:17 Xanax PO 0.25 mg Q8H PRN Administration Anxiety Amlodipine Besylate 10 mg 05/29/18 10:00 06/13/18 09:33 Norvasc PO 10 mg DAILY DOMINICK Administration Arformoterol Tartrate 15 mcg 06/04/18 20:00 06/14/18 08:44 Brovana Nebu IH 15 mcg Q12HRT DOMINICK Administration Baclofen 10 mg 05/28/18 23:00 06/13/18 21:11 Lioresal PO 10 mg BID DOMINICK Administration Budesonide 0.5 mg 05/28/18 22:45 06/14/18 08:44 Pulmicort IH 0.5 mg Q12HRT DOMINICK Administration Buspirone HCl 5 mg 05/28/18 23:00 06/13/18 21:11 Buspar PO 5 mg BID DOMINICK Administration Fondaparinux 2.5 mg 06/09/18 22:00 06/13/18 21:11 Arixtra SUB-Q 2.5 mg DAILY@2200 DOMINICK Administration Furosemide 20 mg 06/12/18 13:00 06/13/18 09:35 Lasix IV 06/16/18 23:59 20 mg QDAY DOMINICK Administration Lansoprazole 30 mg 05/30/18 10:00 06/13/18 09:37 Prevacid Solutab FEEDTUBE 30 mg QDAY DOMINICK Administration Lisinopril 10 mg 05/29/18 10:00 06/13/18 11:33 Zestril PO 10 mg QDAY DOMINICK Administration Lorazepam 2 mg 05/31/18 08:39 06/14/18 03:38 Ativan IV 2 mg Q1H PRN Administration CIWA-Ar 8-15 Lorazepam 4 mg 05/31/18 08:39 06/08/18 20:53 Ativan IV 4 mg Q1H PRN Administration CIWA-Ar 16-25 Lorazepam 4 mg 05/31/18 08:39 06/05/18 20:00 Ativan IV 4 mg Q15MIN PRN Administration CIWA-Ar >25 Metoprolol Tartrate 12.5 mg 06/10/18 00:00 Lopressor PO Q6H PRN HR>125 Potassium Chloride 40 meq 06/12/18 13:00 06/13/18 09:31 K-Dur PO 06/16/18 23:59 40 meq QDAY DOMINICK Administration Prednisone 30 mg 06/13/18 10:00 06/13/18 09:32 Deltasone PO 30 mg QDAY DOMINICK Administration Simple Syrup 15 ml 05/28/18 22:45 06/06/18 12:00 Simple Syrup FEEDTUBE 15 ml PRN PRN Administration Hypoglycemia Simple Syrup 30 ml 05/28/18 22:45 Simple Syrup FEEDTUBE PRN PRN Hypoglycemia Sodium Bicarbonate 325 mg 05/28/18 22:45 06/07/18 23:48 Sodium Bicarbonate FEEDTUBE 325 mg PRN PRN Administration For Clogged Feeding Tube Sodium Chloride 10 ml 05/29/18 10:00 06/13/18 21:12 Sodium Chloride Flush Syringe 10 Ml IV 10 ml BID DOMINICK Administration Sodium Chloride 10 ml 05/28/18 22:45 06/06/18 05:50 Sodium Chloride Flush Syringe 10 Ml IV 10 ml PRN PRN Administration LINE FLUSH Venlafaxine HCl 100 mg 06/13/18 12:00 06/13/18 19:22 Effexor PO 100 mg TIDWM DOMINICK Administration Nutrition/Malnutrition Assess - Dietary Evaluation Nutrition/Malnutrition Findings: Nutrition Notes Start: 05/29/18 09:32 Freq: Status: Active Protocol: Document 06/11/18 15:00 RM (Rec: 06/11/18 15:16 RM [id number]) Nutrition Notes Initial or Follow up Reassessment Current Diagnosis COPD,Hypertension,Respiratory Failure Other Pertinent Diagnosis Septic shock,Suspected PNA, COPD exacerbation, End-stage lung Dz Current Diet [facility] soft Labs/Tests Reviewed Pertinent Medications Reviewed Height 5 ft Weight 76.4 kg [place] Body Weight (kg) 45.45 BMI 32.8 Weight change and time frame Current wt [facility]. Previous wt likely inaccurate. Subjective/Other Information Pt somewhat confused at time of visit but stated she does not like the vanilla Ensure Enlive. Pt tech stated that pt is drinking the Ensure Enlive but not eating her meals. Percent of energy/protein needs met: 65%/43% Burn Absent Trauma Absent #1 Nutrition Diagnosis Inadequate oral intake Diagnosis Progress(for reassessment Continues documentation) Is patient on ventilator? No Is Patient Ambulatory and/or Out of Bed No REE-([facility]-confined to bed) 1511.448 Kcal/Kg value to use for calculation 14 Approximate Energy Requirements Using 1070 kcal/Kg Calculation Used for Recommendations Kcal/kg Additional Notes Protein Needs: 92-104g (1.5-1. 7g/kg, 61 kg adjBW) Fluid Needs: 1 ml/kcal Fluid needs 1ml/kcal Nutrition Intervention Change Diet Order: Continue current Add Supplement/Snack (indicate name/kcal Ensure Enlive [place] or /protein ) Chocolate BID Provides kCal: 700 Provides Protein (gm) 40 Goal #1 Meet at least 75% of kcal and pro needs via PO and ONS intake Anticipated Discharge Needs: mechanical soft diet Follow-Up By: 06/16/18 Additional Comments Follow for PO and ONS intakes
[2018-06-14] MEDS: K-DUR PO SCH (10:44)
[2018-06-14] MEDS: PREVACID SOLUTAB FEEDTUBE SCH (10:44)
[2018-06-14] MEDS: DELTASONE PO SCH (10:44)
[2018-06-14] MEDS: LIORESAL PO SCH ×2 (10:44→21:00)
[2018-06-14] MEDS: BUSPAR PO SCH ×2 (10:44→21:00)
[2018-06-14] MEDS: NORVASC PO SCH (10:44)
[2018-06-14] MEDS: EFFEXOR PO SCH ×3 (10:44→19:35)
[2018-06-14] MEDS: SODIUM CHLORIDE FLUSH SYRINGE 10 ML IV SCH ×2 (10:45→21:05)
[2018-06-14] MEDS: LASIX IV SCH (10:45)
[2018-06-14] MEDS: ZESTRIL PO SCH (10:50)
--- NOTE | 2018-06-14 14:11 | Progress Note ---
Assessment and Plan Septic Shock suspected LLL pneumonia, SOFA score >2 Acute on chronic combined( hypoxic-hypercapnic) respiratory failure s/p ETT MVS Severe AE COPD AMS with Acute encephalopathy Macrocytosis GNR pneumonia, probably secondary to aspiration Acute encephalaopthy( toxic, metabolic) History of substance abuse - continue BIPAP qhs wityh prn daytime use - continue watch closely; transfer to [facility] if resumes continuous BIPAP - continue scheduled duonebs bid - continue systemic steroids with slow taper (on prednisone now) - continue brovana & pulmicort - PT/OT to increase ambulation - bilateral lower extremity dopplers negative for DVT - continue to wean supplemental oxygen to keep O2 sats 90% - tapered off seroquel - prn ABGs/CXR at this point - s/p empiric antibiotics for aspiration PNA - continue Stress ulcer prophylaxis - continue VTE prophylaxis - resume chronic home medications per attending - continue accuchecks with glycemic control for target glucose of 140-180 mg/dL - Continue bronchodilators with pulmonary hygiene per RT - continue maintenance of sleep -wake cycle - continue mobility as tolerated by hemodynamics - Influenza and pneumonia vaccination addressed per protocol ... will likely need placement PROGNOSIS guarded to fair CODE STATUS: FULL CODE Subjective Date of service: 06/14/18 Principal diagnosis: Septic Shock (? LLL pneumonia); Ac on Ch hypoxic- hypercapnic Resp failure Interval history: Patient is seen today for: Septic Shock suspected LLL pneumonia, SOFA score > 2; Acute on chronic combined( hypoxic-hypercapnic) respiratory failure s/p ETT MVS; Severe AE COPD; AMS with Acute encephalopathy; Macrocytosis Seen and examined at bedside; 24hour events reviewed; nursing and respiratory care staff consulted; no adverse overnight events reported to me; sitting in bed; looks and feels better today; No N/V/F/C; no acute chest pains Objective Vital Signs - 12hr 06/14/18 06/14/18 02:32 04:38 Temperature 97.7 F Pulse Rate 67 95 H Respiratory 16 23 Rate Blood Pressure 123/41 O2 Sat by Pulse 98 95 Oximetry Constitutional: appears uncomfortable, other (elderly chronically ill looking CF; normocephalic and with mild patient-vent dyssynchrony) Eyes: non-icteric ENT: oropharynx moist, other (extubated) Neck: supple, no lymphadenopathy, no JVD, other (large neck circumference) Effort: mildly labored Ascultation: Bilateral: diminished breath sounds, rhonchi, other (prolonged exp phase) Percussion: Bilateral: not dull Cardiovascular: regular rate and rhythm Gastrointestinal: normoactive bowel sounds, soft, non-tender, non-distended Integumentary: normal Extremities: no cyanosis, no edema, pink and warm, pulses normal Neurologic: non-focal exam (grossly), pupils equal and round, CN II-XII normal, motor strength normal and Psychiatric: mood appropriate, affect normal CBC and BMP: 06/18/18 05:01 06/18/18 05:01 ABG, PT/INR, D-dimer: ABG POC ABG pH 7.384 (7.35-7.45) 06/05/18 04:10 POC ABG pCO2 56.3 (35-45) H 06/05/18 04:10 POC ABG pO2 61 (80-105) L 06/05/18 04:10 POC ABG HCO3 33.6 (22-26 mml/L) 06/05/18 04:10 POC ABG Total CO2 35 (23-27mmol/L) 06/05/18 04:10 POC ABG O2 Sat 90 06/05/18 04:10 PT/INR, D-dimer D-Dimer 1062.49 ng/mlDDU (0-234) H 05/28/18 13:13 Abnormal lab findings: Abnormal Labs 05/28/18 05/28/18 05/28/18 13:13 13:13 13:13 WBC Hgb 9.7 L MCV 77 L MCH 23 L MCHC 29 L RDW 19.2 H Plt Count Lymph % (Auto) 8.5 L Bailey % (Auto) 11.3 H Lymph # 0.8 L Bailey # 1.1 H Seg Neutrophils % 79.8 H Seg Neuts % (Manual) Lymphocytes % (Manual) Nucleated RBC % Seg Neutrophils # Seg Neutrophils # Man Lymphocytes # (Manual) D-Dimer 1062.49 H POC ABG pH POC ABG pCO2 POC ABG pO2 Sodium Potassium Chloride Carbon Dioxide BUN 24 H Creatinine 0.6 L Glucose POC Glucose Calcium Magnesium Total Protein Albumin 3.5 L Triglycerides Ur Specific [place] 04/11/19 04/11/19 04/11/19 13:22 14:50 16:05 WBC Hgb MCV MCH MCHC RDW Plt Count Lymph % (Auto) Bailey % (Auto) Lymph # Bailey # Seg Neutrophils % Seg Neuts % (Manual) Lymphocytes % (Manual) Nucleated RBC % Seg Neutrophils # Seg Neutrophils # Man Lymphocytes # (Manual) D-Dimer POC ABG pH 7.249 L 7.126 L POC ABG pCO2 68.9 H POC ABG pO2 77 L Sodium Potassium Chloride 109.1 H Carbon Dioxide BUN 22 H Creatinine 0.5 L Glucose POC Glucose Calcium 7.5 L Magnesium Total Protein Albumin Triglycerides Ur Specific [place] 05/28/18 05/28/18 05/28/18 17:57 18:48 22:47 WBC Hgb MCV MCH MCHC RDW Plt Count Lymph % (Auto) Bailey % (Auto) Lymph # Bailey # Seg Neutrophils % Seg Neuts % (Manual) Lymphocytes % (Manual) Nucleated RBC % Seg Neutrophils # Seg Neutrophils # Man Lymphocytes # (Manual) D-Dimer POC ABG pH 7.195 L 7.312 L POC ABG pCO2 57.5 H POC ABG pO2 57 L 73 L Sodium Potassium Chloride Carbon Dioxide BUN Creatinine Glucose POC Glucose Calcium Magnesium Total Protein Albumin Triglycerides Ur Specific [place] > 1.030 H 05/30/18 05/30/18 05/31/18 06:10 10:42 04:23 WBC Hgb MCV MCH MCHC RDW Plt Count Lymph % (Auto) Bailey % (Auto) Lymph # Bailey # Seg Neutrophils % Seg Neuts % (Manual) Lymphocytes % (Manual) Nucleated RBC % Seg Neutrophils # Seg Neutrophils # Man Lymphocytes # (Manual) D-Dimer POC ABG pH 7.214 L 7.253 L POC ABG pCO2 64.5 H 56.4 H POC ABG pO2 78 L 74 L Sodium Potassium Chloride Carbon Dioxide BUN Creatinine Glucose POC Glucose Calcium Magnesium Total Protein Albumin Triglycerides Ur Specific [place] 05/31/18 05/31/18 05/31/18 06:30 08:50 08:50 WBC Hgb 9.3 L MCV 78 L MCH 23 L MCHC 29 L RDW 19.8 H Plt Count 131 L Lymph % (Auto) Bailey % (Auto) Lymph # Bailey # Seg Neutrophils % Seg Neuts % (Manual) 98.0 H Lymphocytes % (Manual) 2.0 L Nucleated RBC % 1.0 H Seg Neutrophils # Seg Neutrophils # Man 8.4 H Lymphocytes # (Manual) 0.2 L D-Dimer POC ABG pH POC ABG pCO2 POC ABG pO2 Sodium 153 H D Potassium Chloride 117.4 H Carbon Dioxide BUN 18 H Creatinine 0.4 L Glucose 159 H POC Glucose 146 H Calcium 8.3 L Magnesium Total Protein Albumin Triglycerides Ur Specific [place] 06/01/18 06/01/18 06/01/18 00:11 03:32 05:50 WBC Hgb 9.8 L MCV 77 L MCH 23 L MCHC 29 L RDW 20.1 H Plt Count 122 L Lymph % (Auto) Bailey % (Auto) Lymph # Bailey # Seg Neutrophils % Seg Neuts % (Manual) Lymphocytes % (Manual) Nucleated RBC % Seg Neutrophils # Seg Neutrophils # Man Lymphocytes # (Manual) D-Dimer POC ABG pH 7.465 H POC ABG pCO2 POC ABG pO2 Sodium Potassium Chloride Carbon Dioxide BUN Creatinine Glucose POC Glucose 149 H Calcium Magnesium Total Protein Albumin Triglycerides Ur Specific [place] 06/01/18 06/01/18 06/01/18 05:50 05:50 05:51 WBC Hgb MCV MCH MCHC RDW Plt Count Lymph % (Auto) Bailey % (Auto) Lymph # Bailey # Seg Neutrophils % Seg Neuts % (Manual) Lymphocytes % (Manual) Nucleated RBC % Seg Neutrophils # Seg Neutrophils # Man Lymphocytes # (Manual) D-Dimer POC ABG pH POC ABG pCO2 POC ABG pO2 Sodium 152 H Potassium Chloride 113.7 H Carbon Dioxide BUN 18 H Creatinine 0.3 L Glucose 146 H POC Glucose 146 H Calcium Magnesium 2.40 H Total Protein Albumin Triglycerides 214 H Ur Specific [place] 06/01/18 06/01/18 06/01/18 10:40 11:52 12:06 WBC Hgb MCV MCH MCHC RDW Plt Count Lymph % (Auto) Bailey % (Auto) Lymph # Bailey # Seg Neutrophils % Seg Neuts % (Manual) Lymphocytes % (Manual) Nucleated RBC % Seg Neutrophils # Seg Neutrophils # Man Lymphocytes # (Manual) D-Dimer POC ABG pH POC ABG pCO2 48.4 H POC ABG pO2 Sodium Potassium Chloride Carbon Dioxide BUN Creatinine Glucose POC Glucose 147 H 138 H Calcium Magnesium Total Protein Albumin Triglycerides Ur Specific [place] 06/01/18 06/02/18 06/02/18 18:08 00:39 04:11 WBC Hgb MCV MCH MCHC RDW Plt Count Lymph % (Auto) Bailey % (Auto) Lymph # Bailey # Seg Neutrophils % Seg Neuts % (Manual) Lymphocytes % (Manual) Nucleated RBC % Seg Neutrophils # Seg Neutrophils # Man Lymphocytes # (Manual) D-Dimer POC ABG pH POC ABG pCO2 50.3 H POC ABG pO2 72 L Sodium Potassium Chloride Carbon Dioxide BUN Creatinine Glucose POC Glucose 156 H 156 H Calcium Magnesium Total Protein Albumin Triglycerides Ur Specific [place] 06/02/18 06/02/18 06/02/18 05:16 07:47 07:47 WBC Hgb 10.0 L MCV 77 L MCH 23 L MCHC 29 L RDW 18.8 H Plt Count 103 L Lymph % (Auto) Bailey % (Auto) Lymph # Bailey # Seg Neutrophils % Seg Neuts % (Manual) Lymphocytes % (Manual) Nucleated RBC % Seg Neutrophils # Seg Neutrophils # Man Lymphocytes # (Manual) D-Dimer POC ABG pH POC ABG pCO2 POC ABG pO2 Sodium 148 H Potassium Chloride 109.4 H Carbon Dioxide 32 H BUN 21 H Creatinine 0.3 L Glucose 137 H POC Glucose 150 H Calcium Magnesium Total Protein Albumin Triglycerides Ur Specific [place] 06/02/18 06/02/18 06/02/18 11:46 17:51 19:58 WBC Hgb MCV MCH MCHC RDW Plt Count Lymph % (Auto) Bailey % (Auto) Lymph # Bailey # Seg Neutrophils % Seg Neuts % (Manual) Lymphocytes % (Manual) Nucleated RBC % Seg Neutrophils # Seg Neutrophils # Man Lymphocytes # (Manual) D-Dimer POC ABG pH POC ABG pCO2 POC ABG pO2 Sodium Potassium Chloride Carbon Dioxide BUN Creatinine Glucose POC Glucose 150 H 135 H 131 H Calcium Magnesium Total Protein Albumin Triglycerides Ur Specific [place] 06/03/18 06/03/18 06/03/18 04:28 04:59 04:59 WBC Hgb MCV 76 L MCH 23 L MCHC RDW 19.1 H Plt Count 99 L Lymph % (Auto) Bailey % (Auto) Lymph # Bailey # Seg Neutrophils % Seg Neuts % (Manual) Lymphocytes % (Manual) Nucleated RBC % Seg Neutrophils # Seg Neutrophils # Man Lymphocytes # (Manual) D-Dimer POC ABG pH POC ABG pCO2 50.4 H POC ABG pO2 65 L Sodium Potassium Chloride Carbon Dioxide BUN 23 H Creatinine 0.3 L Glucose 167 H POC Glucose Calcium Magnesium Total Protein Albumin Triglycerides Ur Specific [place] 06/03/18 06/03/18 06/03/18 05:17 12:20 17:28 WBC Hgb MCV MCH MCHC RDW Plt Count Lymph % (Auto) Bailey % (Auto) Lymph # Bailey # Seg Neutrophils % Seg Neuts % (Manual) Lymphocytes % (Manual) Nucleated RBC % Seg Neutrophils # Seg Neutrophils # Man Lymphocytes # (Manual) D-Dimer POC ABG pH POC ABG pCO2 POC ABG pO2 Sodium Potassium Chloride Carbon Dioxide BUN Creatinine Glucose POC Glucose 153 H 155 H 135 H Calcium Magnesium Total Protein Albumin Triglycerides Ur Specific [place] 06/03/18 06/04/18 06/04/18 23:23 04:37 05:15 WBC Hgb MCV MCH MCHC RDW Plt Count Lymph % (Auto) Bailey % (Auto) Lymph # Bailey # Seg Neutrophils % Seg Neuts % (Manual) Lymphocytes % (Manual) Nucleated RBC % Seg Neutrophils # Seg Neutrophils # Man Lymphocytes # (Manual) D-Dimer POC ABG pH POC ABG pCO2 51.3 H POC ABG pO2 79 L Sodium Potassium Chloride Carbon Dioxide BUN Creatinine Glucose POC Glucose 145 H 140 H Calcium Magnesium Total Protein Albumin Triglycerides Ur Specific [place] 06/04/18 06/04/18 06/05/18 11:47 17:22 01:13 WBC Hgb MCV MCH MCHC RDW Plt Count Lymph % (Auto) Bailey % (Auto) Lymph # Bailey # Seg Neutrophils % Seg Neuts % (Manual) Lymphocytes % (Manual) Nucleated RBC % Seg Neutrophils # Seg Neutrophils # Man Lymphocytes # (Manual) D-Dimer POC ABG pH POC ABG pCO2 POC ABG pO2 Sodium Potassium Chloride Carbon Dioxide BUN Creatinine Glucose POC Glucose 158 H 131 H 137 H Calcium Magnesium Total Protein Albumin Triglycerides Ur Specific [place] 06/05/18 06/05/18 06/05/18 04:10 06:33 11:41 WBC Hgb MCV MCH MCHC RDW Plt Count Lymph % (Auto) Bailey % (Auto) Lymph # Bailey # Seg Neutrophils % Seg Neuts % (Manual) Lymphocytes % (Manual) Nucleated RBC % Seg Neutrophils # Seg Neutrophils # Man Lymphocytes # (Manual) D-Dimer POC ABG pH POC ABG pCO2 56.3 H POC ABG pO2 61 L Sodium Potassium Chloride Carbon Dioxide BUN Creatinine Glucose POC Glucose 136 H 150 H Calcium Magnesium Total Protein Albumin Triglycerides Ur Specific [place] 06/05/18 06/05/18 06/05/18 15:27 19:49 22:44 WBC Hgb MCV MCH MCHC RDW Plt Count Lymph % (Auto) Bailey % (Auto) Lymph # Bailey # Seg Neutrophils % Seg Neuts % (Manual) Lymphocytes % (Manual) Nucleated RBC % Seg Neutrophils # Seg Neutrophils # Man Lymphocytes # (Manual) D-Dimer POC ABG pH POC ABG pCO2 POC ABG pO2 Sodium Potassium Chloride Carbon Dioxide 36 H D BUN 25 H Creatinine 0.4 L Glucose 130 H POC Glucose 125 H 137 H Calcium Magnesium Total Protein Albumin Triglycerides Ur Specific [place] 06/06/18 06/07/18 06/07/18 12:51 18:24 23:45 WBC Hgb MCV MCH MCHC RDW Plt Count Lymph % (Auto) Bailey % (Auto) Lymph # Bailey # Seg Neutrophils % Seg Neuts % (Manual) Lymphocytes % (Manual) Nucleated RBC % Seg Neutrophils # Seg Neutrophils # Man Lymphocytes # (Manual) D-Dimer POC ABG pH POC ABG pCO2 POC ABG pO2 Sodium Potassium Chloride Carbon Dioxide BUN Creatinine Glucose POC Glucose 66 L 139 H 130 H Calcium Magnesium Total Protein Albumin Triglycerides Ur Specific [place] 06/08/18 06/08/18 06/08/18 03:37 03:37 06:24 WBC Hgb MCV 76 L MCH 24 L MCHC RDW 19.8 H Plt Count 103 L Lymph % (Auto) Bailey % (Auto) Lymph # Bailey # Seg Neutrophils % Seg Neuts % (Manual) Lymphocytes % (Manual) Nucleated RBC % Seg Neutrophils # Seg Neutrophils # Man Lymphocytes # (Manual) D-Dimer POC ABG pH POC ABG pCO2 POC ABG pO2 Sodium Potassium Chloride Carbon Dioxide BUN Creatinine 0.2 L Glucose 123 H POC Glucose 119 H Calcium 8.3 L Magnesium Total Protein Albumin Triglycerides Ur Specific [place] 06/08/18 06/09/18 06/10/18 23:26 16:38 00:39 WBC Hgb MCV MCH MCHC RDW Plt Count Lymph % (Auto) Bailey % (Auto) Lymph # Bailey # Seg Neutrophils % Seg Neuts % (Manual) Lymphocytes % (Manual) Nucleated RBC % Seg Neutrophils # Seg Neutrophils # Man Lymphocytes # (Manual) D-Dimer POC ABG pH POC ABG pCO2 POC ABG pO2 Sodium Potassium Chloride Carbon Dioxide BUN Creatinine Glucose POC Glucose 106 H 109 H 114 H Calcium Magnesium Total Protein Albumin Triglycerides Ur Specific [place] 06/10/18 06/10/18 06/11/18 09:47 09:47 00:05 WBC 16.9 H Hgb MCV 78 L MCH 23 L MCHC RDW 20.0 H Plt Count Lymph % (Auto) 9.1 L Bailey % (Auto) 8.5 H Lymph # Bailey # 1.4 H Seg Neutrophils % 81.8 H Seg Neuts % (Manual) Lymphocytes % (Manual) Nucleated RBC % Seg Neutrophils # 13.9 H Seg Neutrophils # Man Lymphocytes # (Manual) D-Dimer POC ABG pH POC ABG pCO2 POC ABG pO2 Sodium Potassium Chloride Carbon Dioxide BUN Creatinine 0.3 L Glucose 110 H POC Glucose 110 H Calcium Magnesium Total Protein 5.9 L Albumin 3.5 L Triglycerides Ur Specific [place] 06/11/18 06/11/18 06/12/18 06:08 06:08 00:19 WBC 15.7 H 20.3 H Hgb MCV 77 L 77 L MCH 24 L 23 L MCHC RDW 20.3 H 20.7 H Plt Count Lymph % (Auto) 8.9 L Bailey % (Auto) Lymph # Bailey # 1.0 H Seg Neutrophils % 83.7 H Seg Neuts % (Manual) 93.0 H Lymphocytes % (Manual) 4.0 L Nucleated RBC % Seg Neutrophils # 13.2 H Seg Neutrophils # Man 18.9 H Lymphocytes # (Manual) 0.8 L D-Dimer POC ABG pH POC ABG pCO2 POC ABG pO2 Sodium Potassium 3.3 L Chloride Carbon Dioxide BUN Creatinine 0.4 L Glucose POC Glucose Calcium Magnesium Total Protein Albumin Triglycerides Ur Specific [place] 06/13/18 06/13/18 05:00 05:00 WBC 18.0 H Hgb MCV 78 L MCH 23 L MCHC RDW 21.8 H Plt Count Lymph % (Auto) 7.2 L Bailey % (Auto) Lymph # Bailey # 1.1 H Seg Neutrophils % 86.3 H Seg Neuts % (Manual) Lymphocytes % (Manual) Nucleated RBC % Seg Neutrophils # 15.6 H Seg Neutrophils # Man Lymphocytes # (Manual) D-Dimer POC ABG pH POC ABG pCO2 POC ABG pO2 Sodium Potassium 3.5 L Chloride Carbon Dioxide BUN 20 H Creatinine 0.5 L Glucose 138 H POC Glucose Calcium Magnesium Total Protein Albumin Triglycerides Ur Specific [place] Allied health notes reviewed: nursing
[2018-06-14] MEDS: TYLENOL PO PRN ×2 (14:32→21:00)
[2018-06-14] MEDS: ARIXTRA SUB-Q SCH (21:00)
[2018-06-15] MEDS: ATIVAN IV PRN (00:49)
[2018-06-15 06:39] LABS: Eosinophils % (Auto) 1.2 % (0.0-4.3); Hematocrit 32.6 % (30.3-42.9); Lymphocytes % (Auto) 18.4 % (13.4-35.0); Mean Corpuscular HGB Conc 31 % (30-34); Mean Corpuscular Volume 78 fl (79-97); Mean Platelet Volume 10 fl (6-12); Monocytes % (Auto) 7.7 % (0.0-7.3); Platelet Count 116 K/mm3 (140-440); Red Blood Count 4.19 M/mm3 (3.65-5.03); Red Cell Distribution Width 22.6 % (13.2-15.2)
[2018-06-15 06:40] LABS: Basophils % (Auto) 0.2 % (0.0-1.8); Eosinophils # (Auto) 0.1 K/mm3 (0.0-0.4); Lymphocytes # (Auto) 1.5 K/mm3 (1.2-5.4); Monocytes # (Auto) 0.6 K/mm3 (0.0-0.8)
[2018-06-15 06:45] LABS: Alanine Aminotransferase 25 units/L (7-56); Albumin 3.6 g/dL (3.9-5); BUN/Creatinine Ratio 38; Blood Urea Nitrogen 15 mg/dL (7-17); Calcium 8.6 mg/dL (8.4-10.2); Hemolysis Index 5
[2018-06-15] MEDS: BROVANA NEBU IH SCH ×2 (07:22→19:50)
[2018-06-15] MEDS: PULMICORT IH SCH ×2 (07:22→19:50)
[2018-06-15] MEDS: DUONEB *Not for PRN Use IH SCH ×2 (07:22→19:50)
[2018-06-15] MEDS: LASIX IV SCH (09:03)
[2018-06-15] MEDS: ZESTRIL PO SCH (09:03)
[2018-06-15] MEDS: EFFEXOR PO SCH ×3 (09:03→18:04)
[2018-06-15] MEDS: K-DUR PO SCH (09:03)
[2018-06-15] MEDS: LIORESAL PO SCH ×2 (09:03→21:41)
[2018-06-15] MEDS: NORVASC PO SCH (09:04)
[2018-06-15] MEDS: BUSPAR PO SCH ×2 (09:04→21:41)
[2018-06-15] MEDS: DELTASONE PO SCH (09:04)
[2018-06-15] MEDS: PREVACID SOLUTAB FEEDTUBE SCH (09:04)
[2018-06-15] MEDS: SODIUM CHLORIDE FLUSH SYRINGE 10 ML IV SCH ×2 (09:05→21:42)
--- NOTE | 2018-06-15 14:28 | Progress Note ---
Assessment and Plan Patient awake and resting on 5 litres O2.O2 saturation 91%.No acute respiratory distress. - Patient Problems (1) COPD (chronic obstructive pulmonary disease) Current Visit: Yes Status: Acute Qualifiers: COPD type: unspecified COPD Qualified Code(s): J44.9 - Chronic obstructive pulmonary disease, unspecified Plan to address problem: O2 3 litres via nasal canula Albuterol/atrovent aerosol treatments q 6 hours. Continue PO prednisone. Patient is on Fondoforinux. Patient is on Prevacid. (2) Hypercapnic respiratory failure Current Visit: Yes Status: Acute Plan to address problem: BIPAP as per protocol. O2 3 litres O2 when she is not on BIPAP. Albuterol/atrovent aerosol treatments q 6 hours. Continue PO prednisone. Patient is on Fondoforinux. Patient is on Prevacid (3) Encephalopathy Current Visit: Yes Status: Acute Plan to address problem: Management as per primary care. Subjective Date of service: 06/15/18 Principal diagnosis: Septic Shock (? LLL pneumonia); Ac on Ch hypoxic- hypercapnic Resp failure Interval history: Patient awake and resting on 3 litres O2.O2 saturation 94%.No acute respiratory distress. Objective Vital Signs - 12hr 06/15/18 06/15/18 06/15/18 03:06 05:35 07:22 Temperature 98.2 F Pulse Rate 85 Pulse Rate [ 85 Anterior Bilateral Throughout] Respiratory 21 25 H Rate Respiratory 26 H Rate [Anterior Bilateral Throughout] Blood Pressure 126/61 O2 Sat by Pulse 94 100 Oximetry 06/15/18 06/15/18 06/15/18 07:32 09:03 12:27 Temperature Pulse Rate 86 97 H Pulse Rate [ 89 Anterior Bilateral Throughout] Respiratory Rate Respiratory 22 Rate [Anterior Bilateral Throughout] Blood Pressure 126/61 O2 Sat by Pulse 91 Oximetry 06/15/18 12:28 Temperature 99.0 F Pulse Rate Pulse Rate [ Anterior Bilateral Throughout] Respiratory 20 Rate Respiratory Rate [Anterior Bilateral Throughout] Blood Pressure 98/53 O2 Sat by Pulse Oximetry Constitutional: no acute distress, alert Eyes: non-icteric ENT: oropharynx moist, other (extubated) Neck: supple, no lymphadenopathy, no JVD, other (large neck circumference) Effort: mildly labored Ascultation: Bilateral: diminished breath sounds, rales, other (prolonged exp phase) Percussion: Bilateral: not dull Cardiovascular: regular rate and rhythm Gastrointestinal: normoactive bowel sounds, soft, non-tender, non-distended Integumentary: normal Extremities: no cyanosis, no edema, pink and warm, pulses normal Neurologic: non-focal exam (grossly), pupils equal and round, CN II-XII normal, motor strength normal and Psychiatric: mood appropriate, affect normal CBC and BMP: 06/15/18 05:40 06/15/18 05:40 ABG, PT/INR, D-dimer: ABG POC ABG pH 7.384 (7.35-7.45) 06/05/18 04:10 POC ABG pCO2 56.3 (35-45) H 06/05/18 04:10 POC ABG pO2 61 (80-105) L 06/05/18 04:10 POC ABG HCO3 33.6 (22-26 mml/L) 06/05/18 04:10 POC ABG Total CO2 35 (23-27mmol/L) 06/05/18 04:10 POC ABG O2 Sat 90 06/05/18 04:10 PT/INR, D-dimer D-Dimer 1062.49 ng/mlDDU (0-234) H 05/28/18 13:13 Abnormal lab findings: Abnormal Labs 05/28/18 05/28/18 05/28/18 13:13 13:13 13:13 WBC Hgb 9.7 L MCV 77 L MCH 23 L MCHC 29 L RDW 19.2 H Plt Count Lymph % (Auto) 8.5 L [place] % (Auto) 11.3 H Lymph # 0.8 L [place] # 1.1 H Seg Neutrophils % 79.8 H Seg Neuts % (Manual) Lymphocytes % (Manual) Nucleated RBC % Seg Neutrophils # Seg Neutrophils # Man Lymphocytes # (Manual) D-Dimer 1062.49 H POC ABG pH POC ABG pCO2 POC ABG pO2 Sodium Potassium Chloride Carbon Dioxide BUN 24 H Creatinine 0.6 L Glucose POC Glucose Calcium Magnesium Total Protein Albumin 3.5 L Triglycerides Ur Specific [place] 05/28/18 05/28/18 05/28/18 13:22 14:50 16:05 WBC Hgb MCV MCH MCHC RDW Plt Count Lymph % (Auto) [place] % (Auto) Lymph # [place] # Seg Neutrophils % Seg Neuts % (Manual) Lymphocytes % (Manual) Nucleated RBC % Seg Neutrophils # Seg Neutrophils # Man Lymphocytes # (Manual) D-Dimer POC ABG pH 7.249 L 7.126 L POC ABG pCO2 68.9 H POC ABG pO2 77 L Sodium Potassium Chloride 109.1 H Carbon Dioxide BUN 22 H Creatinine 0.5 L Glucose POC Glucose Calcium 7.5 L Magnesium Total Protein Albumin Triglycerides Ur Specific [place] 05/28/18 05/28/18 05/28/18 17:57 18:48 22:47 WBC Hgb MCV MCH MCHC RDW Plt Count Lymph % (Auto) [place] % (Auto) Lymph # [place] # Seg Neutrophils % Seg Neuts % (Manual) Lymphocytes % (Manual) Nucleated RBC % Seg Neutrophils # Seg Neutrophils # Man Lymphocytes # (Manual) D-Dimer POC ABG pH 7.195 L 7.312 L POC ABG pCO2 57.5 H POC ABG pO2 57 L 73 L Sodium Potassium Chloride Carbon Dioxide BUN Creatinine Glucose POC Glucose Calcium Magnesium Total Protein Albumin Triglycerides Ur Specific [place] > 1.030 H 05/30/18 05/30/18 05/31/18 06:10 10:42 04:23 WBC Hgb MCV MCH MCHC RDW Plt Count Lymph % (Auto) [place] % (Auto) Lymph # [place] # Seg Neutrophils % Seg Neuts % (Manual) Lymphocytes % (Manual) Nucleated RBC % Seg Neutrophils # Seg Neutrophils # Man Lymphocytes # (Manual) D-Dimer POC ABG pH 7.214 L 7.253 L POC ABG pCO2 64.5 H 56.4 H POC ABG pO2 78 L 74 L Sodium Potassium Chloride Carbon Dioxide BUN Creatinine Glucose POC Glucose Calcium Magnesium Total Protein Albumin Triglycerides Ur Specific [place] 05/31/18 05/31/18 05/31/18 06:30 08:50 08:50 WBC Hgb 9.3 L MCV 78 L MCH 23 L MCHC 29 L RDW 19.8 H Plt Count 131 L Lymph % (Auto) [place] % (Auto) Lymph # [place] # Seg Neutrophils % Seg Neuts % (Manual) 98.0 H Lymphocytes % (Manual) 2.0 L Nucleated RBC % 1.0 H Seg Neutrophils # Seg Neutrophils # Man 8.4 H Lymphocytes # (Manual) 0.2 L D-Dimer POC ABG pH POC ABG pCO2 POC ABG pO2 Sodium 153 H D Potassium Chloride 117.4 H Carbon Dioxide BUN 18 H Creatinine 0.4 L Glucose 159 H POC Glucose 146 H Calcium 8.3 L Magnesium Total Protein Albumin Triglycerides Ur Specific [place] 06/01/18 06/01/18 06/01/18 00:11 03:32 05:50 WBC Hgb 9.8 L MCV 77 L MCH 23 L MCHC 29 L RDW 20.1 H Plt Count 122 L Lymph % (Auto) [place] % (Auto) Lymph # [place] # Seg Neutrophils % Seg Neuts % (Manual) Lymphocytes % (Manual) Nucleated RBC % Seg Neutrophils # Seg Neutrophils # Man Lymphocytes # (Manual) D-Dimer POC ABG pH 7.465 H POC ABG pCO2 POC ABG pO2 Sodium Potassium Chloride Carbon Dioxide BUN Creatinine Glucose POC Glucose 149 H Calcium Magnesium Total Protein Albumin Triglycerides Ur Specific [place] 06/01/18 06/01/18 06/01/18 05:50 05:50 05:51 WBC Hgb MCV MCH MCHC RDW Plt Count Lymph % (Auto) [place] % (Auto) Lymph # [place] # Seg Neutrophils % Seg Neuts % (Manual) Lymphocytes % (Manual) Nucleated RBC % Seg Neutrophils # Seg Neutrophils # Man Lymphocytes # (Manual) D-Dimer POC ABG pH POC ABG pCO2 POC ABG pO2 Sodium 152 H Potassium Chloride 113.7 H Carbon Dioxide BUN 18 H Creatinine 0.3 L Glucose 146 H POC Glucose 146 H Calcium Magnesium 2.40 H Total Protein Albumin Triglycerides 214 H Ur Specific [place] 06/01/18 06/01/18 06/01/18 10:40 11:52 12:06 WBC Hgb MCV MCH MCHC RDW Plt Count Lymph % (Auto) [place] % (Auto) Lymph # [place] # Seg Neutrophils % Seg Neuts % (Manual) Lymphocytes % (Manual) Nucleated RBC % Seg Neutrophils # Seg Neutrophils # Man Lymphocytes # (Manual) D-Dimer POC ABG pH POC ABG pCO2 48.4 H POC ABG pO2 Sodium Potassium Chloride Carbon Dioxide BUN Creatinine Glucose POC Glucose 147 H 138 H Calcium Magnesium Total Protein Albumin Triglycerides Ur Specific [place] 06/01/18 06/02/18 06/02/18 18:08 00:39 04:11 WBC Hgb MCV MCH MCHC RDW Plt Count Lymph % (Auto) [place] % (Auto) Lymph # [place] # Seg Neutrophils % Seg Neuts % (Manual) Lymphocytes % (Manual) Nucleated RBC % Seg Neutrophils # Seg Neutrophils # Man Lymphocytes # (Manual) D-Dimer POC ABG pH POC ABG pCO2 50.3 H POC ABG pO2 72 L Sodium Potassium Chloride Carbon Dioxide BUN Creatinine Glucose POC Glucose 156 H 156 H Calcium Magnesium Total Protein Albumin Triglycerides Ur Specific [place] 06/02/18 06/02/18 06/02/18 05:16 07:47 07:47 WBC Hgb 10.0 L MCV 77 L MCH 23 L MCHC 29 L RDW 18.8 H Plt Count 103 L Lymph % (Auto) [place] % (Auto) Lymph # [place] # Seg Neutrophils % Seg Neuts % (Manual) Lymphocytes % (Manual) Nucleated RBC % Seg Neutrophils # Seg Neutrophils # Man Lymphocytes # (Manual) D-Dimer POC ABG pH POC ABG pCO2 POC ABG pO2 Sodium 148 H Potassium Chloride 109.4 H Carbon Dioxide 32 H BUN 21 H Creatinine 0.3 L Glucose 137 H POC Glucose 150 H Calcium Magnesium Total Protein Albumin Triglycerides Ur Specific [place] 06/02/18 06/02/18 06/02/18 11:46 17:51 19:58 WBC Hgb MCV MCH MCHC RDW Plt Count Lymph % (Auto) [place] % (Auto) Lymph # [place] # Seg Neutrophils % Seg Neuts % (Manual) Lymphocytes % (Manual) Nucleated RBC % Seg Neutrophils # Seg Neutrophils # Man Lymphocytes # (Manual) D-Dimer POC ABG pH POC ABG pCO2 POC ABG pO2 Sodium Potassium Chloride Carbon Dioxide BUN Creatinine Glucose POC Glucose 150 H 135 H 131 H Calcium Magnesium Total Protein Albumin Triglycerides Ur Specific [place] 06/03/18 06/03/18 06/03/18 04:28 04:59 04:59 WBC Hgb MCV 76 L MCH 23 L MCHC RDW 19.1 H Plt Count 99 L Lymph % (Auto) [place] % (Auto) Lymph # [place] # Seg Neutrophils % Seg Neuts % (Manual) Lymphocytes % (Manual) Nucleated RBC % Seg Neutrophils # Seg Neutrophils # Man Lymphocytes # (Manual) D-Dimer POC ABG pH POC ABG pCO2 50.4 H POC ABG pO2 65 L Sodium Potassium Chloride Carbon Dioxide BUN 23 H Creatinine 0.3 L Glucose 167 H POC Glucose Calcium Magnesium Total Protein Albumin Triglycerides Ur Specific [place] 06/03/18 06/03/18 06/03/18 05:17 12:20 17:28 WBC Hgb MCV MCH MCHC RDW Plt Count Lymph % (Auto) [place] % (Auto) Lymph # [place] # Seg Neutrophils % Seg Neuts % (Manual) Lymphocytes % (Manual) Nucleated RBC % Seg Neutrophils # Seg Neutrophils # Man Lymphocytes # (Manual) D-Dimer POC ABG pH POC ABG pCO2 POC ABG pO2 Sodium Potassium Chloride Carbon Dioxide BUN Creatinine Glucose POC Glucose 153 H 155 H 135 H Calcium Magnesium Total Protein Albumin Triglycerides Ur Specific [place] 06/03/18 06/04/18 06/04/18 23:23 04:37 05:15 WBC Hgb MCV MCH MCHC RDW Plt Count Lymph % (Auto) [place] % (Auto) Lymph # [place] # Seg Neutrophils % Seg Neuts % (Manual) Lymphocytes % (Manual) Nucleated RBC % Seg Neutrophils # Seg Neutrophils # Man Lymphocytes # (Manual) D-Dimer POC ABG pH POC ABG pCO2 51.3 H POC ABG pO2 79 L Sodium Potassium Chloride Carbon Dioxide BUN Creatinine Glucose POC Glucose 145 H 140 H Calcium Magnesium Total Protein Albumin Triglycerides Ur Specific [place] 06/04/18 06/04/18 06/05/18 11:47 17:22 01:13 WBC Hgb MCV MCH MCHC RDW Plt Count Lymph % (Auto) [place] % (Auto) Lymph # [place] # Seg Neutrophils % Seg Neuts % (Manual) Lymphocytes % (Manual) Nucleated RBC % Seg Neutrophils # Seg Neutrophils # Man Lymphocytes # (Manual) D-Dimer POC ABG pH POC ABG pCO2 POC ABG pO2 Sodium Potassium Chloride Carbon Dioxide BUN Creatinine Glucose POC Glucose 158 H 131 H 137 H Calcium Magnesium Total Protein Albumin Triglycerides Ur Specific [place] 06/05/18 06/05/18 06/05/18 04:10 06:33 11:41 WBC Hgb MCV MCH MCHC RDW Plt Count Lymph % (Auto) [place] % (Auto) Lymph # [place] # Seg Neutrophils % Seg Neuts % (Manual) Lymphocytes % (Manual) Nucleated RBC % Seg Neutrophils # Seg Neutrophils # Man Lymphocytes # (Manual) D-Dimer POC ABG pH POC ABG pCO2 56.3 H POC ABG pO2 61 L Sodium Potassium Chloride Carbon Dioxide BUN Creatinine Glucose POC Glucose 136 H 150 H Calcium Magnesium Total Protein Albumin Triglycerides Ur Specific [place] 06/05/18 06/05/18 06/05/18 15:27 19:49 22:44 WBC Hgb MCV MCH MCHC RDW Plt Count Lymph % (Auto) [place] % (Auto) Lymph # [place] # Seg Neutrophils % Seg Neuts % (Manual) Lymphocytes % (Manual) Nucleated RBC % Seg Neutrophils # Seg Neutrophils # Man Lymphocytes # (Manual) D-Dimer POC ABG pH POC ABG pCO2 POC ABG pO2 Sodium Potassium Chloride Carbon Dioxide 36 H D BUN 25 H Creatinine 0.4 L Glucose 130 H POC Glucose 125 H 137 H Calcium Magnesium Total Protein Albumin Triglycerides Ur Specific [place] 06/06/18 06/07/18 06/07/18 12:51 18:24 23:45 WBC Hgb MCV MCH MCHC RDW Plt Count Lymph % (Auto) [place] % (Auto) Lymph # [place] # Seg Neutrophils % Seg Neuts % (Manual) Lymphocytes % (Manual) Nucleated RBC % Seg Neutrophils # Seg Neutrophils # Man Lymphocytes # (Manual) D-Dimer POC ABG pH POC ABG pCO2 POC ABG pO2 Sodium Potassium Chloride Carbon Dioxide BUN Creatinine Glucose POC Glucose 66 L 139 H 130 H Calcium Magnesium Total Protein Albumin Triglycerides Ur Specific [place] 06/08/18 06/08/18 06/08/18 03:37 03:37 06:24 WBC Hgb MCV 76 L MCH 24 L MCHC RDW 19.8 H Plt Count 103 L Lymph % (Auto) [place] % (Auto) Lymph # [place] # Seg Neutrophils % Seg Neuts % (Manual) Lymphocytes % (Manual) Nucleated RBC % Seg Neutrophils # Seg Neutrophils # Man Lymphocytes # (Manual) D-Dimer POC ABG pH POC ABG pCO2 POC ABG pO2 Sodium Potassium Chloride Carbon Dioxide BUN Creatinine 0.2 L Glucose 123 H POC Glucose 119 H Calcium 8.3 L Magnesium Total Protein Albumin Triglycerides Ur Specific [place] 06/08/18 06/09/18 06/10/18 23:26 16:38 00:39 WBC Hgb MCV MCH MCHC RDW Plt Count Lymph % (Auto) [place] % (Auto) Lymph # [place] # Seg Neutrophils % Seg Neuts % (Manual) Lymphocytes % (Manual) Nucleated RBC % Seg Neutrophils # Seg Neutrophils # Man Lymphocytes # (Manual) D-Dimer POC ABG pH POC ABG pCO2 POC ABG pO2 Sodium Potassium Chloride Carbon Dioxide BUN Creatinine Glucose POC Glucose 106 H 109 H 114 H Calcium Magnesium Total Protein Albumin Triglycerides Ur Specific [place] 06/10/18 06/10/18 06/11/18 09:47 09:47 00:05 WBC 16.9 H Hgb MCV 78 L MCH 23 L MCHC RDW 20.0 H Plt Count Lymph % (Auto) 9.1 L [place] % (Auto) 8.5 H Lymph # [place] # 1.4 H Seg Neutrophils % 81.8 H Seg Neuts % (Manual) Lymphocytes % (Manual) Nucleated RBC % Seg Neutrophils # 13.9 H Seg Neutrophils # Man Lymphocytes # (Manual) D-Dimer POC ABG pH POC ABG pCO2 POC ABG pO2 Sodium Potassium Chloride Carbon Dioxide BUN Creatinine 0.3 L Glucose 110 H POC Glucose 110 H Calcium Magnesium Total Protein 5.9 L Albumin 3.5 L Triglycerides Ur Specific [place] 06/11/18 06/11/18 06/12/18 06:08 06:08 00:19 WBC 15.7 H 20.3 H Hgb MCV 77 L 77 L MCH 24 L 23 L MCHC RDW 20.3 H 20.7 H Plt Count Lymph % (Auto) 8.9 L [place] % (Auto) Lymph # [place] # 1.0 H Seg Neutrophils % 83.7 H Seg Neuts % (Manual) 93.0 H Lymphocytes % (Manual) 4.0 L Nucleated RBC % Seg Neutrophils # 13.2 H Seg Neutrophils # Man 18.9 H Lymphocytes # (Manual) 0.8 L D-Dimer POC ABG pH POC ABG pCO2 POC ABG pO2 Sodium Potassium 3.3 L Chloride Carbon Dioxide BUN Creatinine 0.4 L Glucose POC Glucose Calcium Magnesium Total Protein Albumin Triglycerides Ur Specific [place] 06/13/18 06/13/18 06/15/18 05:00 05:00 05:40 WBC 18.0 H Hgb 10.0 L MCV 78 L 78 L MCH 23 L 24 L MCHC RDW 21.8 H 22.6 H Plt Count 116 L Lymph % (Auto) 7.2 L [place] % (Auto) 7.7 H Lymph # [place] # 1.1 H Seg Neutrophils % 86.3 H 72.5 H Seg Neuts % (Manual) Lymphocytes % (Manual) Nucleated RBC % Seg Neutrophils # 15.6 H Seg Neutrophils # Man Lymphocytes # (Manual) D-Dimer POC ABG pH POC ABG pCO2 POC ABG pO2 Sodium Potassium 3.5 L Chloride Carbon Dioxide BUN 20 H Creatinine 0.5 L Glucose 138 H POC Glucose Calcium Magnesium Total Protein Albumin Triglycerides Ur Specific [place] 06/15/18 05:40 WBC Hgb MCV MCH MCHC RDW Plt Count Lymph % (Auto) [place] % (Auto) Lymph # [place] # Seg Neutrophils % Seg Neuts % (Manual) Lymphocytes % (Manual) Nucleated RBC % Seg Neutrophils # Seg Neutrophils # Man Lymphocytes # (Manual) D-Dimer POC ABG pH POC ABG pCO2 POC ABG pO2 Sodium Potassium Chloride Carbon Dioxide BUN Creatinine 0.4 L Glucose POC Glucose Calcium Magnesium Total Protein 5.8 L Albumin 3.6 L Triglycerides Ur Specific [place] Chest x-ray: report reviewed (Reported no significant acute process.), image reviewed Allied health notes reviewed: nursing
[2018-06-15] MEDS: TYLENOL PO PRN ×2 (14:48→21:59)
--- NOTE | 2018-06-15 15:20 | Progress Note ---
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 According to chart, pt has not been using her O2 and started hallucinating. She was intubated in the ED. She was also hypotensive in the ED and started on Vasopressor/Levophed, patient was stabilized in ICU extubated and transferred to telemetry. Noncompliant with oxygen, but refuses to have BiPAP on, chronic hypoxia, oxygen dependent, awaiting placement --Acute on chronic combined respiratory failure requiring intubation: Now extubated, patient remains hypoxic On nasal cannula oxygen, and BiPAP, patient does not keep oxygen, progressing to episodes of hypoxia unable to tolerate physical therapy, continue current management, Pulmonary following --Septic Shock : off pressors BP well maintained -- LLL Pseudomonas/E.coli pneumonia:Sputum culture positive for Pseudomonas/Escherichia coli received 10 days of Levaquin, received 5 days of Diflucan, monitor off antibiotics and antifungals --Sinus Tachycaedia: resolved --AMS with Acute encephalopathy, significant improvement from admission Confused at times, history of substance abuse, psych disorder, psych following --Severe AE COPD: iv steriods continue taper, s/p abx, nebs and titrate O2 sats to more than 90% Evaluation for home oxygen at discharge --End-stage COPD; with chronic hypoxia recommend hospice --Acute thrombocytopenia: Lovenox discontinued, negative for HIT, SCD Platelets improved --Disposition: Physical therapy ,OT -- DVT prophylaxis: sq Lovenox , Discharge planning per case management, possible SNF placement Patient's condition and treatment plan discussed in detail with the patient and her nurse Disposition; awaiting placement, possible discharge in 1-2 days if stable History Interval history: Patient seen and examined medical records reviewed No new Events reported by the nursing staff Patient tolerated BiPAP last night Today she is better Denies chest pain or shortness of breath Vital signs reviewed Hospitalist Physical - Constitutional Vitals: Temp Pulse Resp BP Pulse Ox 99.0 F 97 H 20 98/53 91 06/15/18 12:28 06/15/18 12:27 06/15/18 12:28 06/15/18 12:28 06/15/18 12:27 General appearance: Present: no acute distress, well-nourished, obese, other (on Ventimask) - EENT Eyes: Present: PERRL, EOM intact - Neck Neck: Present: supple, normal ROM - Respiratory Respiratory effort: normal Respiratory: bilateral: diminished, wheezing, negative: rales, rhonchi - Cardiovascular Rhythm: regular Heart Sounds: Present: S1 & S2 - Extremities Extremities: no ischemia, No edema - Abdominal General gastrointestinal: soft, non-tender, non-distended, normal bowel sounds - Integumentary Integumentary: Present: clear, warm - Psychiatric Psychiatric: appropriate mood/affect - Neurologic Neurologic: moves all extremities Results - Labs CBC & Chem 7: 06/15/18 05:40 06/15/18 05:40 Labs: Laboratory Last Values WBC 8.2 K/mm3 (4.5-11.0) 06/15/18 05:40 RBC 4.19 M/mm3 (3.65-5.03) 06/15/18 05:40 Hgb 10.0 gm/dl (10.1-14.3) L 06/15/18 05:40 Hct 32.6 % (30.3-42.9) 06/15/18 05:40 MCV 78 fl (79-97) L 06/15/18 05:40 MCH 24 pg (28-32) L 06/15/18 05:40 MCHC 31 % (30-34) 06/15/18 05:40 RDW 22.6 % (13.2-15.2) H 06/15/18 05:40 Plt Count 116 K/mm3 (140-440) L 06/15/18 05:40 Lymph % (Auto) 18.4 % (13.4-35.0) 06/15/18 05:40 [place] % (Auto) 7.7 % (0.0-7.3) H 06/15/18 05:40 Eos % (Auto) 1.2 % (0.0-4.3) 06/15/18 05:40 Baso % (Auto) 0.2 % (0.0-1.8) 06/15/18 05:40 Lymph # 1.5 K/mm3 (1.2-5.4) 06/15/18 05:40 [place] # 0.6 K/mm3 (0.0-0.8) 06/15/18 05:40 Eos # 0.1 K/mm3 (0.0-0.4) 06/15/18 05:40 Baso # 0.0 K/mm3 (0.0-0.1) 06/15/18 05:40 Add Manual Diff Complete 06/12/18 00:19 Total Counted 100 06/12/18 00:19 Seg Neutrophils % 72.5 % (40.0-70.0) H 06/15/18 05:40 Seg Neuts % (Manual) 93.0 % (40.0-70.0) H 06/12/18 00:19 Band Neutrophils % 0 % 06/12/18 00:19 Lymphocytes % (Manual) 4.0 % (13.4-35.0) L 06/12/18 00:19 Reactive Lymphs % (Man) 0 % 06/12/18 00:19 Monocytes % (Manual) 3.0 % (0.0-7.3) 06/12/18 00:19 Eosinophils % (Manual) 0 % (0.0-4.3) 06/12/18 00:19 Basophils % (Manual) 0 % (0.0-1.8) 06/12/18 00:19 Metamyelocytes % 0 % 06/12/18 00:19 Myelocytes % 0 % 06/12/18 00:19 Promyelocytes % 0 % 06/12/18 00:19 Blast Cells % 0 % 06/12/18 00:19 Nucleated RBC % Not Reportable 06/12/18 00:19 Seg Neutrophils # 6.0 K/mm3 (1.8-7.7) 06/15/18 05:40 Seg Neutrophils # Man 18.9 K/mm3 (1.8-7.7) H 06/12/18 00:19 Band Neutrophils # 0.0 K/mm3 06/12/18 00:19 Lymphocytes # (Manual) 0.8 K/mm3 (1.2-5.4) L 06/12/18 00:19 Abs React Lymphs (Man) 0.0 K/mm3 06/12/18 00:19 Monocytes # (Manual) 0.6 K/mm3 (0.0-0.8) 06/12/18 00:19 Eosinophils # (Manual) 0.0 K/mm3 (0.0-0.4) 06/12/18 00:19 Basophils # (Manual) 0.0 K/mm3 (0.0-0.1) 06/12/18 00:19 Metamyelocytes # 0.0 K/mm3 06/12/18 00:19 Myelocytes # 0.0 K/mm3 06/12/18 00:19 Promyelocytes # 0.0 K/mm3 06/12/18 00:19 Blast Cells # 0.0 K/mm3 06/12/18 00:19 WBC Morphology Not Reportable 06/12/18 00:19 Hypersegmented Neuts Not Reportable 06/12/18 00:19 Hyposegmented Neuts Not Reportable 06/12/18 00:19 Hypogranular Neuts Not Reportable 06/12/18 00:19 Smudge Cells Not Reportable 06/12/18 00:19 Toxic Granulation Not Reportable 06/12/18 00:19 Toxic Vacuolation Not Reportable 06/12/18 00:19 Dohle Bodies Not Reportable 06/12/18 00:19 Pelger-Huet Anomaly Not Reportable 06/12/18 00:19 Neha Rods Not Reportable 06/12/18 00:19 Platelet Estimate Consistent w auto 06/12/18 00:19 Clumped Platelets Not Reportable 06/12/18 00:19 Plt Clumps, EDTA Not Reportable 06/12/18 00:19 Large Platelets Not Reportable 06/12/18 00:19 Giant Platelets Not Reportable 06/12/18 00:19 Platelet Satelliting Not Reportable 06/12/18 00:19 Plt Morphology Comment Not Reportable 06/12/18 00:19 RBC Morphology Not Reportable 06/12/18 00:19 Dimorphic RBCs Not Reportable 06/12/18 00:19 Polychromasia Not Reportable 06/12/18 00:19 Hypochromasia 1+ 06/12/18 00:19 Poikilocytosis Not Reportable 06/12/18 00:19 Anisocytosis 1+ 06/12/18 00:19 Microcytosis Not Reportable 06/12/18 00:19 Macrocytosis Not Reportable 06/12/18 00:19 Spherocytes Not Reportable 06/12/18 00:19 Pappenheimer Bodies Not Reportable 06/12/18 00:19 Sickle Cells Not Reportable 06/12/18 00:19 Target Cells Not Reportable 06/12/18 00:19 Tear Drop Cells Not Reportable 06/12/18 00:19 Ovalocytes Few 06/12/18 00:19 Stomatocytes Rare 05/31/18 08:50 Helmet Cells Not Reportable 06/12/18 00:19 [place] Bodies Not Reportable 06/12/18 00:19 [place] Rings Not Reportable 06/12/18 00:19 Damien Cells Not Reportable 06/12/18 00:19 Bite Cells Not Reportable 06/12/18 00:19 Crenated Cell Not Reportable 06/12/18 00:19 Elliptocytes Not Reportable 06/12/18 00:19 Acanthocytes (Spur) Not Reportable 06/12/18 00:19 Rouleaux Not Reportable 06/12/18 00:19 Hemoglobin C Crystals Not Reportable 06/12/18 00:19 Schistocytes Not Reportable 06/12/18 00:19 Malaria parasites Not Reportable 06/12/18 00:19 Hernan Bodies Not Reportable 06/12/18 00:19 Hem Pathologist Commnt No 06/12/18 00:19 D-Dimer 1062.49 ng/mlDDU (0-234) H 05/28/18 13:13 Heparin Anti-Xa, Unfract Negative (Negative) 06/03/18 10:55 POC ABG pH 7.384 (7.35-7.45) 06/05/18 04:10 POC ABG pCO2 56.3 (35-45) H 06/05/18 04:10 POC ABG pO2 61 (80-105) L 06/05/18 04:10 POC ABG HCO3 33.6 (22-26 mml/L) 06/05/18 04:10 POC ABG Total CO2 35 (23-27mmol/L) 06/05/18 04:10 POC ABG O2 Sat 90 06/05/18 04:10 POC ABG Base Excess 9 ((-2) - (+3)mmol/L) 06/05/18 04:10 FiO2 45 % 06/05/18 04:10 Sodium 140 mmol/L (137-145) 06/15/18 05:40 Potassium 3.8 mmol/L (3.6-5.0) 06/15/18 05:40 Chloride 100.2 mmol/L (98-107) 06/15/18 05:40 Carbon Dioxide 29 mmol/L (22-30) 06/15/18 05:40 Anion Gap 15 mmol/L 06/15/18 05:40 BUN 15 mg/dL (7-17) 06/15/18 05:40 Creatinine 0.4 mg/dL (0.7-1.2) L 06/15/18 05:40 Estimated GFR > 60 ml/min 06/15/18 05:40 BUN/Creatinine Ratio 38 % 06/15/18 05:40 Glucose 77 mg/dL (65-100) 06/15/18 05:40 POC Glucose 83 (70-105) 06/11/18 06:44 Lactic Acid 0.90 mmol/L (0.7-2.0) 05/28/18 14:50 Calcium 8.6 mg/dL (8.4-10.2) 06/15/18 05:40 Phosphorus 3.90 mg/dL (2.5-4.5) 06/15/18 05:40 Magnesium 2.20 mg/dL (1.7-2.3) 06/15/18 05:40 Total Bilirubin 0.50 mg/dL (0.1-1.2) 06/15/18 05:40 AST 16 units/L (5-40) 06/15/18 05:40 ALT 25 units/L (7-56) 06/15/18 05:40 Alkaline Phosphatase 55 units/L (35-129) 06/15/18 05:40 Troponin T < 0.010 ng/mL (0.00-0.029) 05/28/18 13:13 Total Protein 5.8 g/dL (6.3-8.2) L 06/15/18 05:40 Albumin 3.6 g/dL (3.9-5) L 06/15/18 05:40 Albumin/Globulin Ratio 1.6 % 06/15/18 05:40 Triglycerides 214 mg/dL (2-149) H 06/01/18 05:50 Serotonin Release Assay See scanned results 06/03/18 10:55 Urine Color Yellow (Yellow) 05/28/18 17:57 Urine Turbidity Clear (Clear) 05/28/18 17:57 Urine pH 6.0 (5.0-7.0) 05/28/18 17:57 Ur Specific [place] > 1.030 (1.003-1.030) H 05/28/18 17:57 Urine Protein 100 mg/dl mg/dL (Negative) 05/28/18 17:57 Urine Glucose (UA) Neg mg/dL (Negative) 05/28/18 17:57 Urine Ketones 20 mg/dL (Negative) 05/28/18 17:57 Urine Blood Sm (Negative) 05/28/18 17:57 Urine Nitrite Neg (Negative) 05/28/18 17:57 Urine Bilirubin Neg (Negative) 05/28/18 17:57 Urine Urobilinogen 2.0 mg/dL (<2.0) 05/28/18 17:57 Ur Leukocyte Esterase Neg (Negative) 05/28/18 17:57 Urine WBC (Auto) 1.0 /HPF (0.0-6.0) 05/28/18 17:57 Urine RBC (Auto) 2.0 /HPF (0.0-6.0) 05/28/18 17:57 U Epithel Cells (Auto) < 1.0 /HPF (0-13.0) 05/28/18 17:57 Urine Mucus Few /HPF 05/28/18 17:57 Random Gentamicin 0.4 ug/mL (0.0-10.0) 06/01/18 05:50 Vancomycin Trough 7.2 ug/mL (5.0-20.0) 05/31/18 09:39 Urine Opiates Screen Presumptive negative 05/29/18 23:50 Urine Methadone Screen Presumptive negative 05/29/18 23:50 Ur Barbiturates Screen Presumptive negative 05/29/18 23:50 Ur Phencyclidine Scrn Presumptive negative 05/29/18 23:50 Ur Amphetamines Screen Presumptive negative 05/29/18 23:50 U Benzodiazepines Scrn Presumptive negative 05/29/18 23:50 Urine Cocaine Screen Presumptive negative 05/29/18 23:50 U Marijuana (THC) Screen Presumptive negative 05/29/18 23:50 Drugs of Abuse Note Disclamer 05/29/18 23:50 Heparin-induced Plt Ab Negative (Negative) 06/03/18 10:55 UF Heparin High Dose 0 % Release 06/03/18 10:55 ESSIE UFH Low Dose 0.1 0 % Release 06/03/18 10:55 ESSIE UFH Low Dose 0.5 0 % Release 06/03/18 10:55 Active Medications - Current Medications Current Medications: Generic Name Dose Route Start Last Admin Trade Name Freq PRN Reason Stop Dose Admin Acetaminophen 650 mg 06/14/18 08:20 06/15/18 14:48 Tylenol PO 650 mg Q6H PRN Administration Pain, Mild (1-3) Albuterol 2.5 mg 06/10/18 17:42 Proventil IH Q4HRT PRN Shortness Of Breath Albuterol/Ipratropium 1 ampul 06/04/18 20:00 06/15/18 07:22 Duoneb *Not For Prn Use* IH 1 ampul BIDRT DOMINICK Administration Alprazolam 0.25 mg 06/13/18 11:07 06/14/18 21:00 Xanax PO 0.25 mg Q8H PRN Administration Anxiety Amlodipine Besylate 10 mg 05/29/18 10:00 06/15/18 09:04 Norvasc PO 10 mg DAILY DOMINICK Administration Arformoterol Tartrate 15 mcg 06/04/18 20:00 06/15/18 07:22 Brovana Nebu IH 15 mcg Q12HRT DOMINICK Administration Baclofen 10 mg 05/28/18 23:00 06/15/18 09:03 Lioresal PO 10 mg BID DOMINICK Administration Budesonide 0.5 mg 05/28/18 22:45 06/15/18 07:22 Pulmicort IH 0.5 mg Q12HRT DOMINICK Administration Buspirone HCl 5 mg 05/28/18 23:00 06/15/18 09:04 Buspar PO 5 mg BID DOMINICK Administration Fondaparinux 2.5 mg 06/09/18 22:00 06/14/18 21:00 Arixtra SUB-Q 2.5 mg DAILY@2200 DOMINICK Administration Furosemide 20 mg 06/12/18 13:00 06/15/18 09:03 Lasix IV 06/16/18 23:59 20 mg QDAY DOMINICK Administration Lansoprazole 30 mg 05/30/18 10:00 06/15/18 09:04 Prevacid Solutab FEEDTUBE 30 mg QDAY DOMINICK Administration Lisinopril 10 mg 05/29/18 10:00 06/15/18 09:03 Zestril PO 10 mg QDAY DOMINICK Administration Lorazepam 2 mg 05/31/18 08:39 06/15/18 00:49 Ativan IV 2 mg Q1H PRN Administration CIWA-Ar 8-15 Lorazepam 4 mg 05/31/18 08:39 06/08/18 20:53 Ativan IV 4 mg Q1H PRN Administration CIWA-Ar 16-25 Lorazepam 4 mg 05/31/18 08:39 06/05/18 20:00 Ativan IV 4 mg Q15MIN PRN Administration CIWA-Ar >25 Metoprolol Tartrate 12.5 mg 06/10/18 00:00 Lopressor PO Q6H PRN HR>125 Potassium Chloride 40 meq 06/12/18 13:00 06/15/18 09:03 K-Dur PO 06/16/18 23:59 40 meq QDAY DOMINICK Administration Prednisone 30 mg 06/13/18 10:00 06/15/18 09:04 Deltasone PO 30 mg QDAY DOMINICK Administration Simple Syrup 15 ml 05/28/18 22:45 06/06/18 12:00 Simple Syrup FEEDTUBE 15 ml PRN PRN Administration Hypoglycemia Simple Syrup 30 ml 05/28/18 22:45 Simple Syrup FEEDTUBE PRN PRN Hypoglycemia Sodium Bicarbonate 325 mg 05/28/18 22:45 06/07/18 23:48 Sodium Bicarbonate FEEDTUBE 325 mg PRN PRN Administration For Clogged Feeding Tube Sodium Chloride 10 ml 05/29/18 10:00 06/15/18 09:05 Sodium Chloride Flush Syringe 10 Ml IV 10 ml BID DOMINICK Administration Sodium Chloride 10 ml 05/28/18 22:45 06/06/18 05:50 Sodium Chloride Flush Syringe 10 Ml IV 10 ml PRN PRN Administration LINE FLUSH Venlafaxine HCl 100 mg 06/13/18 12:00 06/15/18 14:46 Effexor PO 100 mg TIDWM DOMINICK Administration Nutrition/Malnutrition Assess - Dietary Evaluation Nutrition/Malnutrition Findings: Nutrition Notes Start: 05/29/18 09:32 Freq: Status: Active Protocol: Document 06/11/18 15:00 RM (Rec: 06/11/18 15:16 [id number]) Nutrition Notes Initial or Follow up Reassessment Current Diagnosis COPD,Hypertension,Respiratory Failure Other Pertinent Diagnosis Septic shock,Suspected PNA, COPD exacerbation, End-stage lung Dz Current Diet [facility] soft Labs/Tests Reviewed Pertinent Medications Reviewed Height 5 ft Weight 76.4 kg [place] Body Weight (kg) 45.45 BMI 32.8 Weight change and time frame [facility] Previous wt likely inaccurate. Subjective/Other Information Pt somewhat confused at time of visit but stated she does not like the vanilla Ensure Enlive. Pt tech stated that pt is drinking the Ensure Enlive but not eating her meals. Percent of energy/protein needs met: 65%/43% Burn Absent Trauma Absent #1 Nutrition Diagnosis Inadequate oral intake Diagnosis Progress(for reassessment Continues documentation) Is patient on ventilator? No Is Patient Ambulatory and/or Out of Bed No REE-([place]-St. Jeor-confined to bed) 1511.448 Kcal/Kg value to use for calculation 14 Approximate Energy Requirements Using 1070 kcal/Kg Calculation Used for Recommendations Kcal/kg Additional Notes Protein Needs: 92-104g (1.5-1. 7g/kg, 61 kg adjBW) Fluid Needs: 1 ml/kcal Fluid needs 1ml/kcal Nutrition Intervention Change Diet Order: Continue current Add Supplement/Snack (indicate name/kcal Ensure Enlive [place] or /protein ) Chocolate BID Provides kCal: 700 Provides Protein (gm) 40 Goal #1 Meet at least 75% of kcal and pro needs via PO and ONS intake Anticipated Discharge Needs: mechanical soft diet Follow-Up By: 06/16/18 Additional Comments Follow for PO and ONS intakes
[2018-06-15] MEDS: ARIXTRA SUB-Q SCH (21:41)
[2018-06-15] MEDS: XANAX PO PRN (21:42)
[2018-06-16] MEDS: ATIVAN IV PRN (01:57)
[2018-06-16] MEDS: PULMICORT IH SCH ×2 (08:11→20:53)
[2018-06-16] MEDS: BROVANA NEBU IH SCH ×2 (08:11→20:53)
[2018-06-16] MEDS: DUONEB *Not for PRN Use IH SCH ×2 (08:11→20:54)
[2018-06-16] MEDS: DELTASONE PO SCH (09:55)
[2018-06-16] MEDS: K-DUR PO SCH (09:55)
[2018-06-16] MEDS: PREVACID SOLUTAB FEEDTUBE SCH (09:55)
[2018-06-16] MEDS: EFFEXOR PO SCH ×3 (09:55→18:59)
[2018-06-16] MEDS: LASIX IV SCH (09:56)
[2018-06-16] MEDS: NORVASC PO SCH (09:56)
[2018-06-16] MEDS: LIORESAL PO SCH ×2 (09:57→21:43)
[2018-06-16] MEDS: BUSPAR PO SCH ×2 (09:57→21:42)
[2018-06-16] MEDS: SODIUM CHLORIDE FLUSH SYRINGE 10 ML IV SCH ×2 (09:58→21:43)
[2018-06-16] MEDS: ZESTRIL PO SCH (09:59)
--- NOTE | 2018-06-16 12:23 | Progress Note ---
Assessment and Plan Assessment and plan: Patient is a 58 yo woman with a history of chronic hypoxic respiratory failure due to End stage COPD on home O2, CAD s/p PCI with bare metal stent, cps with recurrent admission for narcotic overdose, PCP toxicity in the past, MDD, dyslipidemia and anemia who presented from home to [facility] ED with AMS. According to chart, pt has not been using her O2 and started hallucinating. She was intubated in the ED. She was also hypotensive in the ED and started on Vasopressor/Levophed, patient was stabilized in ICU extubated and transferred to telemetry. Noncompliant with oxygen, but refuses to have BiPAP on, chronic hypoxia, oxygen dependent, awaiting placement --Acute on chronic combined respiratory failure requiring intubation: Now extubated, patient remains hypoxic On nasal cannula oxygen, and BiPAP, patient does not keep oxygen, progressing to episodes of hypoxia unable to tolerate physical therapy, continue current management, Pulmonary following --Sinus Tachycardia: resolved --AMS with Acute encephalopathy, significant improvement from admission Confused at times, history of substance abuse, psych disorder, psych following --Severe AE COPD: iv steriods continue taper, s/p abx, nebs and titrate O2 sats to more than 90% Evaluation for home oxygen at discharge --End-stage COPD; with chronic hypoxia recommend hospice --Acute thrombocytopenia: Lovenox discontinued, negative for HIT, SCD Platelets improved --Disposition: Physical therapy ,OT --DVT prophylaxis: sq Lovenox , Discharge planning per case management, possible SNF placement Patient's condition and treatment plan discussed in detail with the patient and her nurse Disposition; awaiting placement, possible discharge in 1-2 days if stable History Interval history: Patient seen and examined medical records reviewed Patient feels better today cheerful alert awake Not in acute distress Saturating 9596% on 2 L of oxygen Vital signs reviewed Awaiting placement Hospitalist Physical - Constitutional Vitals: Temp Pulse Resp BP Pulse Ox 98.0 F 92 H 20 123/60 97 06/16/18 07:01 06/16/18 09:56 06/16/18 08:34 06/16/18 09:56 06/16/18 08:10 General appearance: Present: no acute distress, well-nourished, obese, other (on Ventimask) - EENT Eyes: Present: PERRL, EOM intact - Neck Neck: Present: supple, normal ROM - Respiratory Respiratory effort: normal Respiratory: bilateral: diminished, negative: rales, rhonchi, wheezing - Cardiovascular Rhythm: regular Heart Sounds: Present: S1 & S2 - Extremities Extremities: no ischemia, No edema - Abdominal General gastrointestinal: soft, non-tender, non-distended, normal bowel sounds - Integumentary Integumentary: Present: clear, warm - Psychiatric Psychiatric: appropriate mood/affect, cooperative - Neurologic Neurologic: CNII-XII intact, moves all extremities Results - Labs CBC & Chem 7: 06/15/18 05:40 06/15/18 05:40 Labs: Laboratory Last Values WBC 8.2 K/mm3 (4.5-11.0) 06/15/18 05:40 RBC 4.19 M/mm3 (3.65-5.03) 06/15/18 05:40 Hgb 10.0 gm/dl (10.1-14.3) L 06/15/18 05:40 Hct 32.6 % (30.3-42.9) 06/15/18 05:40 MCV 78 fl (79-97) L 06/15/18 05:40 MCH 24 pg (28-32) L 06/15/18 05:40 MCHC 31 % (30-34) 06/15/18 05:40 RDW 22.6 % (13.2-15.2) H 06/15/18 05:40 Plt Count 116 K/mm3 (140-440) L 06/15/18 05:40 Lymph % (Auto) 18.4 % (13.4-35.0) 06/15/18 05:40 [place] % (Auto) 7.7 % (0.0-7.3) H 06/15/18 05:40 Eos % (Auto) 1.2 % (0.0-4.3) 06/15/18 05:40 Baso % (Auto) 0.2 % (0.0-1.8) 06/15/18 05:40 Lymph # 1.5 K/mm3 (1.2-5.4) 06/15/18 05:40 [place] # 0.6 K/mm3 (0.0-0.8) 06/15/18 05:40 Eos # 0.1 K/mm3 (0.0-0.4) 06/15/18 05:40 Baso # 0.0 K/mm3 (0.0-0.1) 06/15/18 05:40 Add Manual Diff Complete 06/12/18 00:19 Total Counted 100 06/12/18 00:19 Seg Neutrophils % 72.5 % (40.0-70.0) H 06/15/18 05:40 Seg Neuts % (Manual) 93.0 % (40.0-70.0) H 06/12/18 00:19 Band Neutrophils % 0 % 06/12/18 00:19 Lymphocytes % (Manual) 4.0 % (13.4-35.0) L 06/12/18 00:19 Reactive Lymphs % (Man) 0 % 06/12/18 00:19 Monocytes % (Manual) 3.0 % (0.0-7.3) 06/12/18 00:19 Eosinophils % (Manual) 0 % (0.0-4.3) 06/12/18 00:19 Basophils % (Manual) 0 % (0.0-1.8) 06/12/18 00:19 Metamyelocytes % 0 % 06/12/18 00:19 Myelocytes % 0 % 06/12/18 00:19 Promyelocytes % 0 % 06/12/18 00:19 Blast Cells % 0 % 06/12/18 00:19 Nucleated RBC % Not Reportable 06/12/18 00:19 Seg Neutrophils # 6.0 K/mm3 (1.8-7.7) 06/15/18 05:40 Seg Neutrophils # Man 18.9 K/mm3 (1.8-7.7) H 06/12/18 00:19 Band Neutrophils # 0.0 K/mm3 06/12/18 00:19 Lymphocytes # (Manual) 0.8 K/mm3 (1.2-5.4) L 06/12/18 00:19 Abs React Lymphs (Man) 0.0 K/mm3 06/12/18 00:19 Monocytes # (Manual) 0.6 K/mm3 (0.0-0.8) 06/12/18 00:19 Eosinophils # (Manual) 0.0 K/mm3 (0.0-0.4) 06/12/18 00:19 Basophils # (Manual) 0.0 K/mm3 (0.0-0.1) 06/12/18 00:19 Metamyelocytes # 0.0 K/mm3 06/12/18 00:19 Myelocytes # 0.0 K/mm3 06/12/18 00:19 Promyelocytes # 0.0 K/mm3 06/12/18 00:19 Blast Cells # 0.0 K/mm3 06/12/18 00:19 WBC Morphology Not Reportable 06/12/18 00:19 Hypersegmented Neuts Not Reportable 06/12/18 00:19 Hyposegmented Neuts Not Reportable 06/12/18 00:19 Hypogranular Neuts Not Reportable 06/12/18 00:19 Smudge Cells Not Reportable 06/12/18 00:19 Toxic Granulation Not Reportable 06/12/18 00:19 Toxic Vacuolation Not Reportable 06/12/18 00:19 Dohle Bodies Not Reportable 06/12/18 00:19 Pelger-Huet Anomaly Not Reportable 06/12/18 00:19 Neha Rods Not Reportable 06/12/18 00:19 Platelet Estimate Consistent w auto 06/12/18 00:19 Clumped Platelets Not Reportable 06/12/18 00:19 Plt Clumps, EDTA Not Reportable 06/12/18 00:19 Large Platelets Not Reportable 06/12/18 00:19 Giant Platelets Not Reportable 06/12/18 00:19 Platelet Satelliting Not Reportable 06/12/18 00:19 Plt Morphology Comment Not Reportable 06/12/18 00:19 RBC Morphology Not Reportable 06/12/18 00:19 Dimorphic RBCs Not Reportable 06/12/18 00:19 Polychromasia Not Reportable 06/12/18 00:19 Hypochromasia 1+ 06/12/18 00:19 Poikilocytosis Not Reportable 06/12/18 00:19 Anisocytosis 1+ 06/12/18 00:19 Microcytosis Not Reportable 06/12/18 00:19 Macrocytosis Not Reportable 06/12/18 00:19 Spherocytes Not Reportable 06/12/18 00:19 Pappenheimer Bodies Not Reportable 06/12/18 00:19 Sickle Cells Not Reportable 06/12/18 00:19 Target Cells Not Reportable 06/12/18 00:19 Tear Drop Cells Not Reportable 06/12/18 00:19 Ovalocytes Few 06/12/18 00:19 Stomatocytes Rare 05/31/18 08:50 Helmet Cells Not Reportable 06/12/18 00:19 Benoit-Schuyler Bodies Not Reportable 06/12/18 00:19 [place] Rings Not Reportable 06/12/18 00:19 Damien Cells Not Reportable 06/12/18 00:19 Bite Cells Not Reportable 06/12/18 00:19 Crenated Cell Not Reportable 06/12/18 00:19 Elliptocytes Not Reportable 06/12/18 00:19 Acanthocytes (Spur) Not Reportable 06/12/18 00:19 Rouleaux Not Reportable 06/12/18 00:19 Hemoglobin C Crystals Not Reportable 06/12/18 00:19 Schistocytes Not Reportable 06/12/18 00:19 Malaria parasites Not Reportable 06/12/18 00:19 Hernan Bodies Not Reportable 06/12/18 00:19 Hem Pathologist Commnt No 06/12/18 00:19 D-Dimer 1062.49 ng/mlDDU (0-234) H 05/28/18 13:13 Heparin Anti-Xa, Unfract Negative (Negative) 06/03/18 10:55 POC ABG pH 7.384 (7.35-7.45) 06/05/18 04:10 POC ABG pCO2 56.3 (35-45) H 06/05/18 04:10 POC ABG pO2 61 (80-105) L 06/05/18 04:10 POC ABG HCO3 33.6 (22-26 mml/L) 06/05/18 04:10 POC ABG Total CO2 35 (23-27mmol/L) 06/05/18 04:10 POC ABG O2 Sat 90 06/05/18 04:10 POC ABG Base Excess 9 ((-2) - (+3)mmol/L) 06/05/18 04:10 FiO2 45 % 06/05/18 04:10 Sodium 140 mmol/L (137-145) 06/15/18 05:40 Potassium 3.8 mmol/L (3.6-5.0) 06/15/18 05:40 Chloride 100.2 mmol/L (98-107) 06/15/18 05:40 Carbon Dioxide 29 mmol/L (22-30) 06/15/18 05:40 Anion Gap 15 mmol/L 06/15/18 05:40 BUN 15 mg/dL (7-17) 06/15/18 05:40 Creatinine 0.4 mg/dL (0.7-1.2) L 06/15/18 05:40 Estimated GFR > 60 ml/min 06/15/18 05:40 BUN/Creatinine Ratio 38 % 06/15/18 05:40 Glucose 77 mg/dL (65-100) 06/15/18 05:40 POC Glucose 83 (70-105) 06/11/18 06:44 Lactic Acid 0.90 mmol/L (0.7-2.0) 05/28/18 14:50 Calcium 8.6 mg/dL (8.4-10.2) 06/15/18 05:40 Phosphorus 3.90 mg/dL (2.5-4.5) 06/15/18 05:40 Magnesium 2.20 mg/dL (1.7-2.3) 06/15/18 05:40 Total Bilirubin 0.50 mg/dL (0.1-1.2) 06/15/18 05:40 AST 16 units/L (5-40) 06/15/18 05:40 ALT 25 units/L (7-56) 06/15/18 05:40 Alkaline Phosphatase 55 units/L (35-129) 06/15/18 05:40 Troponin T < 0.010 ng/mL (0.00-0.029) 05/28/18 13:13 Total Protein 5.8 g/dL (6.3-8.2) L 06/15/18 05:40 Albumin 3.6 g/dL (3.9-5) L 06/15/18 05:40 Albumin/Globulin Ratio 1.6 % 06/15/18 05:40 Triglycerides 214 mg/dL (2-149) H 06/01/18 05:50 Serotonin Release Assay See scanned results 06/03/18 10:55 Urine Color Yellow (Yellow) 05/28/18 17:57 Urine Turbidity Clear (Clear) 05/28/18 17:57 Urine pH 6.0 (5.0-7.0) 05/28/18 17:57 Ur Specific [place] > 1.030 (1.003-1.030) H 05/28/18 17:57 Urine Protein 100 mg/dl mg/dL (Negative) 05/28/18 17:57 Urine Glucose (UA) Neg mg/dL (Negative) 05/28/18 17:57 Urine Ketones 20 mg/dL (Negative) 05/28/18 17:57 Urine Blood Sm (Negative) 05/28/18 17:57 Urine Nitrite Neg (Negative) 05/28/18 17:57 Urine Bilirubin Neg (Negative) 05/28/18 17:57 Urine Urobilinogen 2.0 mg/dL (<2.0) 05/28/18 17:57 Ur Leukocyte Esterase Neg (Negative) 05/28/18 17:57 Urine WBC (Auto) 1.0 /HPF (0.0-6.0) 05/28/18 17:57 Urine RBC (Auto) 2.0 /HPF (0.0-6.0) 05/28/18 17:57 U Epithel Cells (Auto) < 1.0 /HPF (0-13.0) 05/28/18 17:57 Urine Mucus Few /HPF 05/28/18 17:57 Random Gentamicin 0.4 ug/mL (0.0-10.0) 06/01/18 05:50 Vancomycin Trough 7.2 ug/mL (5.0-20.0) 05/31/18 09:39 Urine Opiates Screen Presumptive negative 05/29/18 23:50 Urine Methadone Screen Presumptive negative 05/29/18 23:50 Ur Barbiturates Screen Presumptive negative 05/29/18 23:50 Ur Phencyclidine Scrn Presumptive negative 05/29/18 23:50 Ur Amphetamines Screen Presumptive negative 05/29/18 23:50 U Benzodiazepines Scrn Presumptive negative 05/29/18 23:50 Urine Cocaine Screen Presumptive negative 05/29/18 23:50 U Marijuana (THC) Screen Presumptive negative 05/29/18 23:50 Drugs of Abuse Note Disclamer 05/29/18 23:50 Heparin-induced Plt Ab Negative (Negative) 06/03/18 10:55 UF Heparin High Dose 0 % Release 06/03/18 10:55 ESSIE UFH Low Dose 0.1 0 % Release 06/03/18 10:55 ESSIE UFH Low Dose 0.5 0 % Release 06/03/18 10:55 Active Medications - Current Medications Current Medications: Generic Name Dose Route Start Last Admin Trade Name Freq PRN Reason Stop Dose Admin Acetaminophen 650 mg 06/14/18 08:20 06/15/18 21:59 Tylenol PO 650 mg Q6H PRN Administration Pain, Mild (1-3) Albuterol 2.5 mg 06/10/18 17:42 Proventil IH Q4HRT PRN Shortness Of Breath Albuterol/Ipratropium 1 ampul 06/04/18 20:00 06/16/18 08:11 Duoneb *Not For Prn Use* IH 1 ampul BIDRT DOMINICK Administration Alprazolam 0.25 mg 06/13/18 11:07 06/15/18 21:42 Xanax PO 0.25 mg Q8H PRN Administration Anxiety Amlodipine Besylate 10 mg 05/29/18 10:00 06/16/18 09:56 Norvasc PO 10 mg DAILY DOMINICK Administration Arformoterol Tartrate 15 mcg 06/04/18 20:00 06/16/18 08:11 Brovana Nebu IH 15 mcg Q12HRT DOMINICK Administration Baclofen 10 mg 05/28/18 23:00 06/16/18 09:57 Lioresal PO 10 mg BID DOMINICK Administration Budesonide 0.5 mg 05/28/18 22:45 06/16/18 08:11 Pulmicort IH 0.5 mg Q12HRT DOMINICK Administration Buspirone HCl 5 mg 05/28/18 23:00 06/16/18 09:57 Buspar PO 5 mg BID DOMINICK Administration Fondaparinux 2.5 mg 06/09/18 22:00 06/15/18 21:41 Arixtra SUB-Q 2.5 mg DAILY@2200 DOMINICK Administration Furosemide 20 mg 06/12/18 13:00 06/16/18 09:56 Lasix IV 06/16/18 23:59 20 mg QDAY DOMINICK Administration Lansoprazole 30 mg 05/30/18 10:00 06/16/18 09:55 Prevacid Solutab FEEDTUBE 30 mg QDAY DOMINICK Administration Lisinopril 10 mg 05/29/18 10:00 06/16/18 09:59 Zestril PO 10 mg QDAY DOMINICK Administration Lorazepam 2 mg 05/31/18 08:39 06/16/18 01:57 Ativan IV 2 mg Q1H PRN Administration CIWA-Ar 8-15 Lorazepam 4 mg 05/31/18 08:39 06/08/18 20:53 Ativan IV 4 mg Q1H PRN Administration CIWA-Ar 16-25 Lorazepam 4 mg 05/31/18 08:39 06/05/18 20:00 Ativan IV 4 mg Q15MIN PRN Administration CIWA-Ar >25 Metoprolol Tartrate 12.5 mg 06/10/18 00:00 Lopressor PO Q6H PRN HR>125 Potassium Chloride 40 meq 06/12/18 13:00 06/16/18 09:55 K-Dur PO 06/16/18 23:59 40 meq QDAY DOMINICK Administration Prednisone 30 mg 06/13/18 10:00 06/16/18 09:55 Deltasone PO 30 mg QDAY DOMINICK Administration Simple Syrup 15 ml 05/28/18 22:45 06/06/18 12:00 Simple Syrup FEEDTUBE 15 ml PRN PRN Administration Hypoglycemia Simple Syrup 30 ml 05/28/18 22:45 Simple Syrup FEEDTUBE PRN PRN Hypoglycemia Sodium Bicarbonate 325 mg 05/28/18 22:45 06/07/18 23:48 Sodium Bicarbonate FEEDTUBE 325 mg PRN PRN Administration For Clogged Feeding Tube Sodium Chloride 10 ml 05/29/18 10:00 06/16/18 09:58 Sodium Chloride Flush Syringe 10 Ml IV 10 ml BID DOMINICK Administration Sodium Chloride 10 ml 05/28/18 22:45 06/06/18 05:50 Sodium Chloride Flush Syringe 10 Ml IV 10 ml PRN PRN Administration LINE FLUSH Venlafaxine HCl 100 mg 06/13/18 12:00 06/16/18 09:55 Effexor PO 100 mg TIDWM DOMINICK Administration Nutrition/Malnutrition Assess - Dietary Evaluation Nutrition/Malnutrition Findings: Nutrition Notes Start: 05/29/18 09:32 Freq: Status: Active Protocol: Document 06/16/18 10:43 CP (Rec: 06/16/18 10:46 CP [id number]) Co-Sign 06/16/18 10:43 LP Nutrition Notes Initial or Follow up Reassessment Current Diagnosis COPD,Hypertension,Respiratory Failure Other Pertinent Diagnosis Septic shock,Suspected PNA, COPD exacerbation, End-stage lung Dz Current Diet [facility] soft Labs/Tests Reviewed Pertinent Medications Reviewed Height 5 ft Weight 76.4 kg [place] Body Weight (kg) 45.45 BMI 32.8 Weight Status Obese Subjective/Other Information Pt reported that she had "no appetite" and ate 20% of her tray. She stated that she has been consuming her ONS, but did not want more. Pt stated that she likes dessert, cereal , and soups as noted in her food preferences. Percent of energy/protein needs met: 28%/23% Burn Absent Trauma Absent #1 Nutrition Diagnosis Inadequate oral intake Diagnosis Progress(for reassessment Continues documentation) Is patient on ventilator? No Is Patient Ambulatory and/or Out of Bed No REE-([facility]-confined to bed) 1511.448 Calculation Used for Recommendations [facility] Additional Notes Protein Needs: 92-104g (1.5-1. 7g/kg, 61 kg adjBW) Fluid Needs: 1 ml/kcal Fluid needs 1ml/kcal Nutrition Intervention Change Diet Order: Continue current Add Supplement/Snack (indicate name/kcal Ensure Enlive [place] or /protein ) Chocolate BID Provides kCal: 700 Provides Protein (gm) 40 Goal #1 Meet at least 75% of kcal and pro needs via PO and ONS intake Anticipated Discharge Needs: mechanical soft diet Follow-Up By: 06/18/18 Additional Comments Follow for PO and ONS intake
--- NOTE | 2018-06-16 14:38 | Progress Note ---
Assessment and Plan Patient awake and resting on 5 litres O2.O2 saturation 93%.No acute respiratory distress. - Patient Problems (1) COPD (chronic obstructive pulmonary disease) Current Visit: Yes Status: Acute Qualifiers: COPD type: unspecified COPD Qualified Code(s): J44.9 - Chronic obstructive pulmonary disease, unspecified Plan to address problem: O2 3 litres via nasal canula Albuterol/atrovent aerosol treatments q 6 hours. Continue PO prednisone. Patient is on Fondoforinux. Patient is on Prevacid. (2) Hypercapnic respiratory failure Current Visit: Yes Status: Acute Plan to address problem: BIPAP as per protocol. O2 3 litres O2 when she is not on BIPAP. Albuterol/atrovent aerosol treatments q 6 hours. Continue PO prednisone. Patient is on Fondoforinux. Patient is on Prevacid (3) Encephalopathy Current Visit: Yes Status: Acute Plan to address problem: Management as per primary care. Subjective Date of service: 06/16/18 Principal diagnosis: Septic Shock (? LLL pneumonia); Ac on Ch hypoxic- hypercapnic Resp failure Interval history: Patient awake and resting on 3 litres O2.O2 saturation 93%.No acute respiratory distress. Objective Vital Signs - 12hr 06/16/18 06/16/18 06/16/18 07:01 08:10 08:11 Temperature 98.0 F Pulse Rate 82 Pulse Rate [ 89 Anterior Bilateral Throughout] Respiratory 16 Rate Respiratory 22 Rate [Anterior Bilateral Throughout] Blood Pressure 123/60 O2 Sat by Pulse 96 97 Oximetry 06/16/18 06/16/18 06/16/18 08:34 09:56 12:28 Temperature 98.0 F Pulse Rate 92 H 81 Pulse Rate [ 92 H Anterior Bilateral Throughout] Respiratory 20 Rate Respiratory 20 Rate [Anterior Bilateral Throughout] Blood Pressure 123/60 100/46 O2 Sat by Pulse 93 Oximetry Constitutional: no acute distress, alert Eyes: non-icteric ENT: oropharynx moist, other (extubated) Neck: supple, no lymphadenopathy, no JVD, other (large neck circumference) Effort: mildly labored Ascultation: Bilateral: diminished breath sounds, rales, other (prolonged exp phase) Percussion: Bilateral: not dull Cardiovascular: regular rate and rhythm Gastrointestinal: normoactive bowel sounds, soft, non-tender, non-distended Integumentary: normal Extremities: no cyanosis, no edema, pink and warm, pulses normal Neurologic: non-focal exam (grossly), pupils equal and round, CN II-XII normal, motor strength normal and Psychiatric: mood appropriate, affect normal CBC and BMP: 06/15/18 05:40 06/15/18 05:40 ABG, PT/INR, D-dimer: ABG POC ABG pH 7.384 (7.35-7.45) 06/05/18 04:10 POC ABG pCO2 56.3 (35-45) H 06/05/18 04:10 POC ABG pO2 61 (80-105) L 06/05/18 04:10 POC ABG HCO3 33.6 (22-26 mml/L) 06/05/18 04:10 POC ABG Total CO2 35 (23-27mmol/L) 06/05/18 04:10 POC ABG O2 Sat 90 06/05/18 04:10 PT/INR, D-dimer D-Dimer 1062.49 ng/mlDDU (0-234) H 05/28/18 13:13 Abnormal lab findings: Abnormal Labs 05/28/18 05/28/18 05/28/18 13:13 13:13 13:13 WBC Hgb 9.7 L MCV 77 L MCH 23 L MCHC 29 L RDW 19.2 H Plt Count Lymph % (Auto) 8.5 L Kay % (Auto) 11.3 H Lymph # 0.8 L Kay # 1.1 H Seg Neutrophils % 79.8 H Seg Neuts % (Manual) Lymphocytes % (Manual) Nucleated RBC % Seg Neutrophils # Seg Neutrophils # Man Lymphocytes # (Manual) D-Dimer 1062.49 H POC ABG pH POC ABG pCO2 POC ABG pO2 Sodium Potassium Chloride Carbon Dioxide BUN 24 H Creatinine 0.6 L Glucose POC Glucose Calcium Magnesium Total Protein Albumin 3.5 L Triglycerides Ur Specific [place] 05/28/18 05/28/18 05/28/18 13:22 14:50 16:05 WBC Hgb MCV MCH MCHC RDW Plt Count Lymph % (Auto) Kay % (Auto) Lymph # Kay # Seg Neutrophils % Seg Neuts % (Manual) Lymphocytes % (Manual) Nucleated RBC % Seg Neutrophils # Seg Neutrophils # Man Lymphocytes # (Manual) D-Dimer POC ABG pH 7.249 L 7.126 L POC ABG pCO2 68.9 H POC ABG pO2 77 L Sodium Potassium Chloride 109.1 H Carbon Dioxide BUN 22 H Creatinine 0.5 L Glucose POC Glucose Calcium 7.5 L Magnesium Total Protein Albumin Triglycerides Ur Specific [place] 05/28/18 05/28/18 05/28/18 17:57 18:48 22:47 WBC Hgb MCV MCH MCHC RDW Plt Count Lymph % (Auto) Kay % (Auto) Lymph # Kay # Seg Neutrophils % Seg Neuts % (Manual) Lymphocytes % (Manual) Nucleated RBC % Seg Neutrophils # Seg Neutrophils # Man Lymphocytes # (Manual) D-Dimer POC ABG pH 7.195 L 7.312 L POC ABG pCO2 57.5 H POC ABG pO2 57 L 73 L Sodium Potassium Chloride Carbon Dioxide BUN Creatinine Glucose POC Glucose Calcium Magnesium Total Protein Albumin Triglycerides Ur Specific [place] > 1.030 H 05/30/18 05/30/18 05/31/18 06:10 10:42 04:23 WBC Hgb MCV MCH MCHC RDW Plt Count Lymph % (Auto) Kay % (Auto) Lymph # Kay # Seg Neutrophils % Seg Neuts % (Manual) Lymphocytes % (Manual) Nucleated RBC % Seg Neutrophils # Seg Neutrophils # Man Lymphocytes # (Manual) D-Dimer POC ABG pH 7.214 L 7.253 L POC ABG pCO2 64.5 H 56.4 H POC ABG pO2 78 L 74 L Sodium Potassium Chloride Carbon Dioxide BUN Creatinine Glucose POC Glucose Calcium Magnesium Total Protein Albumin Triglycerides Ur Specific [place] 05/31/18 05/31/18 05/31/18 06:30 08:50 08:50 WBC Hgb 9.3 L MCV 78 L MCH 23 L MCHC 29 L RDW 19.8 H Plt Count 131 L Lymph % (Auto) Kay % (Auto) Lymph # Kay # Seg Neutrophils % Seg Neuts % (Manual) 98.0 H Lymphocytes % (Manual) 2.0 L Nucleated RBC % 1.0 H Seg Neutrophils # Seg Neutrophils # Man 8.4 H Lymphocytes # (Manual) 0.2 L D-Dimer POC ABG pH POC ABG pCO2 POC ABG pO2 Sodium 153 H D Potassium Chloride 117.4 H Carbon Dioxide BUN 18 H Creatinine 0.4 L Glucose 159 H POC Glucose 146 H Calcium 8.3 L Magnesium Total Protein Albumin Triglycerides Ur Specific [place] 06/01/18 06/01/18 06/01/18 00:11 03:32 05:50 WBC Hgb 9.8 L MCV 77 L MCH 23 L MCHC 29 L RDW 20.1 H Plt Count 122 L Lymph % (Auto) Kay % (Auto) Lymph # Kay # Seg Neutrophils % Seg Neuts % (Manual) Lymphocytes % (Manual) Nucleated RBC % Seg Neutrophils # Seg Neutrophils # Man Lymphocytes # (Manual) D-Dimer POC ABG pH 7.465 H POC ABG pCO2 POC ABG pO2 Sodium Potassium Chloride Carbon Dioxide BUN Creatinine Glucose POC Glucose 149 H Calcium Magnesium Total Protein Albumin Triglycerides Ur Specific [place] 06/01/18 06/01/18 06/01/18 05:50 05:50 05:51 WBC Hgb MCV MCH MCHC RDW Plt Count Lymph % (Auto) Kay % (Auto) Lymph # Kay # Seg Neutrophils % Seg Neuts % (Manual) Lymphocytes % (Manual) Nucleated RBC % Seg Neutrophils # Seg Neutrophils # Man Lymphocytes # (Manual) D-Dimer POC ABG pH POC ABG pCO2 POC ABG pO2 Sodium 152 H Potassium Chloride 113.7 H Carbon Dioxide BUN 18 H Creatinine 0.3 L Glucose 146 H POC Glucose 146 H Calcium Magnesium 2.40 H Total Protein Albumin Triglycerides 214 H Ur Specific [place] 06/01/18 06/01/18 06/01/18 10:40 11:52 12:06 WBC Hgb MCV MCH MCHC RDW Plt Count Lymph % (Auto) Kay % (Auto) Lymph # Kay # Seg Neutrophils % Seg Neuts % (Manual) Lymphocytes % (Manual) Nucleated RBC % Seg Neutrophils # Seg Neutrophils # Man Lymphocytes # (Manual) D-Dimer POC ABG pH POC ABG pCO2 48.4 H POC ABG pO2 Sodium Potassium Chloride Carbon Dioxide BUN Creatinine Glucose POC Glucose 147 H 138 H Calcium Magnesium Total Protein Albumin Triglycerides Ur Specific [place] 06/01/18 06/02/18 06/02/18 18:08 00:39 04:11 WBC Hgb MCV MCH MCHC RDW Plt Count Lymph % (Auto) Kay % (Auto) Lymph # Kay # Seg Neutrophils % Seg Neuts % (Manual) Lymphocytes % (Manual) Nucleated RBC % Seg Neutrophils # Seg Neutrophils # Man Lymphocytes # (Manual) D-Dimer POC ABG pH POC ABG pCO2 50.3 H POC ABG pO2 72 L Sodium Potassium Chloride Carbon Dioxide BUN Creatinine Glucose POC Glucose 156 H 156 H Calcium Magnesium Total Protein Albumin Triglycerides Ur Specific [place] 06/02/18 06/02/18 06/02/18 05:16 07:47 07:47 WBC Hgb 10.0 L MCV 77 L MCH 23 L MCHC 29 L RDW 18.8 H Plt Count 103 L Lymph % (Auto) Kay % (Auto) Lymph # Kay # Seg Neutrophils % Seg Neuts % (Manual) Lymphocytes % (Manual) Nucleated RBC % Seg Neutrophils # Seg Neutrophils # Man Lymphocytes # (Manual) D-Dimer POC ABG pH POC ABG pCO2 POC ABG pO2 Sodium 148 H Potassium Chloride 109.4 H Carbon Dioxide 32 H BUN 21 H Creatinine 0.3 L Glucose 137 H POC Glucose 150 H Calcium Magnesium Total Protein Albumin Triglycerides Ur Specific [place] 06/02/18 06/02/18 06/02/18 11:46 17:51 19:58 WBC Hgb MCV MCH MCHC RDW Plt Count Lymph % (Auto) Kay % (Auto) Lymph # Kay # Seg Neutrophils % Seg Neuts % (Manual) Lymphocytes % (Manual) Nucleated RBC % Seg Neutrophils # Seg Neutrophils # Man Lymphocytes # (Manual) D-Dimer POC ABG pH POC ABG pCO2 POC ABG pO2 Sodium Potassium Chloride Carbon Dioxide BUN Creatinine Glucose POC Glucose 150 H 135 H 131 H Calcium Magnesium Total Protein Albumin Triglycerides Ur Specific [place] 06/03/18 06/03/18 06/03/18 04:28 04:59 04:59 WBC Hgb MCV 76 L MCH 23 L MCHC RDW 19.1 H Plt Count 99 L Lymph % (Auto) Kay % (Auto) Lymph # Kay # Seg Neutrophils % Seg Neuts % (Manual) Lymphocytes % (Manual) Nucleated RBC % Seg Neutrophils # Seg Neutrophils # Man Lymphocytes # (Manual) D-Dimer POC ABG pH POC ABG pCO2 50.4 H POC ABG pO2 65 L Sodium Potassium Chloride Carbon Dioxide BUN 23 H Creatinine 0.3 L Glucose 167 H POC Glucose Calcium Magnesium Total Protein Albumin Triglycerides Ur Specific [place] 06/03/18 06/03/18 06/03/18 05:17 12:20 17:28 WBC Hgb MCV MCH MCHC RDW Plt Count Lymph % (Auto) Kay % (Auto) Lymph # Kay # Seg Neutrophils % Seg Neuts % (Manual) Lymphocytes % (Manual) Nucleated RBC % Seg Neutrophils # Seg Neutrophils # Man Lymphocytes # (Manual) D-Dimer POC ABG pH POC ABG pCO2 POC ABG pO2 Sodium Potassium Chloride Carbon Dioxide BUN Creatinine Glucose POC Glucose 153 H 155 H 135 H Calcium Magnesium Total Protein Albumin Triglycerides Ur Specific [place] 06/03/18 06/04/18 06/04/18 23:23 04:37 05:15 WBC Hgb MCV MCH MCHC RDW Plt Count Lymph % (Auto) Kay % (Auto) Lymph # Kay # Seg Neutrophils % Seg Neuts % (Manual) Lymphocytes % (Manual) Nucleated RBC % Seg Neutrophils # Seg Neutrophils # Man Lymphocytes # (Manual) D-Dimer POC ABG pH POC ABG pCO2 51.3 H POC ABG pO2 79 L Sodium Potassium Chloride Carbon Dioxide BUN Creatinine Glucose POC Glucose 145 H 140 H Calcium Magnesium Total Protein Albumin Triglycerides Ur Specific [place] 06/04/18 06/04/18 06/05/18 11:47 17:22 01:13 WBC Hgb MCV MCH MCHC RDW Plt Count Lymph % (Auto) Kay % (Auto) Lymph # Kay # Seg Neutrophils % Seg Neuts % (Manual) Lymphocytes % (Manual) Nucleated RBC % Seg Neutrophils # Seg Neutrophils # Man Lymphocytes # (Manual) D-Dimer POC ABG pH POC ABG pCO2 POC ABG pO2 Sodium Potassium Chloride Carbon Dioxide BUN Creatinine Glucose POC Glucose 158 H 131 H 137 H Calcium Magnesium Total Protein Albumin Triglycerides Ur Specific [place] 06/05/18 06/05/18 06/05/18 04:10 06:33 11:41 WBC Hgb MCV MCH MCHC RDW Plt Count Lymph % (Auto) Kay % (Auto) Lymph # Kay # Seg Neutrophils % Seg Neuts % (Manual) Lymphocytes % (Manual) Nucleated RBC % Seg Neutrophils # Seg Neutrophils # Man Lymphocytes # (Manual) D-Dimer POC ABG pH POC ABG pCO2 56.3 H POC ABG pO2 61 L Sodium Potassium Chloride Carbon Dioxide BUN Creatinine Glucose POC Glucose 136 H 150 H Calcium Magnesium Total Protein Albumin Triglycerides Ur Specific [place] 06/05/18 06/05/18 06/05/18 15:27 19:49 22:44 WBC Hgb MCV MCH MCHC RDW Plt Count Lymph % (Auto) Kay % (Auto) Lymph # Kay # Seg Neutrophils % Seg Neuts % (Manual) Lymphocytes % (Manual) Nucleated RBC % Seg Neutrophils # Seg Neutrophils # Man Lymphocytes # (Manual) D-Dimer POC ABG pH POC ABG pCO2 POC ABG pO2 Sodium Potassium Chloride Carbon Dioxide 36 H D BUN 25 H Creatinine 0.4 L Glucose 130 H POC Glucose 125 H 137 H Calcium Magnesium Total Protein Albumin Triglycerides Ur Specific [place] 06/06/18 06/07/18 06/07/18 12:51 18:24 23:45 WBC Hgb MCV MCH MCHC RDW Plt Count Lymph % (Auto) Kay % (Auto) Lymph # Kay # Seg Neutrophils % Seg Neuts % (Manual) Lymphocytes % (Manual) Nucleated RBC % Seg Neutrophils # Seg Neutrophils # Man Lymphocytes # (Manual) D-Dimer POC ABG pH POC ABG pCO2 POC ABG pO2 Sodium Potassium Chloride Carbon Dioxide BUN Creatinine Glucose POC Glucose 66 L 139 H 130 H Calcium Magnesium Total Protein Albumin Triglycerides Ur Specific [place] 06/08/18 06/08/18 06/08/18 03:37 03:37 06:24 WBC Hgb MCV 76 L MCH 24 L MCHC RDW 19.8 H Plt Count 103 L Lymph % (Auto) Kay % (Auto) Lymph # Kay # Seg Neutrophils % Seg Neuts % (Manual) Lymphocytes % (Manual) Nucleated RBC % Seg Neutrophils # Seg Neutrophils # Man Lymphocytes # (Manual) D-Dimer POC ABG pH POC ABG pCO2 POC ABG pO2 Sodium Potassium Chloride Carbon Dioxide BUN Creatinine 0.2 L Glucose 123 H POC Glucose 119 H Calcium 8.3 L Magnesium Total Protein Albumin Triglycerides Ur Specific [place] 06/08/18 06/09/18 06/10/18 23:26 16:38 00:39 WBC Hgb MCV MCH MCHC RDW Plt Count Lymph % (Auto) Kay % (Auto) Lymph # Kay # Seg Neutrophils % Seg Neuts % (Manual) Lymphocytes % (Manual) Nucleated RBC % Seg Neutrophils # Seg Neutrophils # Man Lymphocytes # (Manual) D-Dimer POC ABG pH POC ABG pCO2 POC ABG pO2 Sodium Potassium Chloride Carbon Dioxide BUN Creatinine Glucose POC Glucose 106 H 109 H 114 H Calcium Magnesium Total Protein Albumin Triglycerides Ur Specific [place] 06/10/18 06/10/18 06/11/18 09:47 09:47 00:05 WBC 16.9 H Hgb MCV 78 L MCH 23 L MCHC RDW 20.0 H Plt Count Lymph % (Auto) 9.1 L Kay % (Auto) 8.5 H Lymph # Kay # 1.4 H Seg Neutrophils % 81.8 H Seg Neuts % (Manual) Lymphocytes % (Manual) Nucleated RBC % Seg Neutrophils # 13.9 H Seg Neutrophils # Man Lymphocytes # (Manual) D-Dimer POC ABG pH POC ABG pCO2 POC ABG pO2 Sodium Potassium Chloride Carbon Dioxide BUN Creatinine 0.3 L Glucose 110 H POC Glucose 110 H Calcium Magnesium Total Protein 5.9 L Albumin 3.5 L Triglycerides Ur Specific [place] 06/11/18 06/11/18 06/12/18 06:08 06:08 00:19 WBC 15.7 H 20.3 H Hgb MCV 77 L 77 L MCH 24 L 23 L MCHC RDW 20.3 H 20.7 H Plt Count Lymph % (Auto) 8.9 L Kay % (Auto) Lymph # Kay # 1.0 H Seg Neutrophils % 83.7 H Seg Neuts % (Manual) 93.0 H Lymphocytes % (Manual) 4.0 L Nucleated RBC % Seg Neutrophils # 13.2 H Seg Neutrophils # Man 18.9 H Lymphocytes # (Manual) 0.8 L D-Dimer POC ABG pH POC ABG pCO2 POC ABG pO2 Sodium Potassium 3.3 L Chloride Carbon Dioxide BUN Creatinine 0.4 L Glucose POC Glucose Calcium Magnesium Total Protein Albumin Triglycerides Ur Specific [place] 06/13/18 06/13/18 06/15/18 05:00 05:00 05:40 WBC 18.0 H Hgb 10.0 L MCV 78 L 78 L MCH 23 L 24 L MCHC RDW 21.8 H 22.6 H Plt Count 116 L Lymph % (Auto) 7.2 L Kay % (Auto) 7.7 H Lymph # Kay # 1.1 H Seg Neutrophils % 86.3 H 72.5 H Seg Neuts % (Manual) Lymphocytes % (Manual) Nucleated RBC % Seg Neutrophils # 15.6 H Seg Neutrophils # Man Lymphocytes # (Manual) D-Dimer POC ABG pH POC ABG pCO2 POC ABG pO2 Sodium Potassium 3.5 L Chloride Carbon Dioxide BUN 20 H Creatinine 0.5 L Glucose 138 H POC Glucose Calcium Magnesium Total Protein Albumin Triglycerides Ur Specific [place] 06/15/18 05:40 WBC Hgb MCV MCH MCHC RDW Plt Count Lymph % (Auto) Kay % (Auto) Lymph # Kay # Seg Neutrophils % Seg Neuts % (Manual) Lymphocytes % (Manual) Nucleated RBC % Seg Neutrophils # Seg Neutrophils # Man Lymphocytes # (Manual) D-Dimer POC ABG pH POC ABG pCO2 POC ABG pO2 Sodium Potassium Chloride Carbon Dioxide BUN Creatinine 0.4 L Glucose POC Glucose Calcium Magnesium Total Protein 5.8 L Albumin 3.6 L Triglycerides Ur Specific [place] Allied health notes reviewed: nursing
[2018-06-16] MEDS: ARIXTRA SUB-Q SCH (21:42)
[2018-06-17] MEDS: BROVANA NEBU IH SCH ×2 (08:03→21:05)
[2018-06-17] MEDS: DUONEB *Not for PRN Use IH SCH ×2 (08:03→21:20)
[2018-06-17] MEDS: PULMICORT IH SCH ×2 (08:03→21:05)
[2018-06-17] MEDS: EFFEXOR PO SCH ×3 (08:17→19:08)
[2018-06-17] MEDS: TYLENOL PO PRN ×2 (08:22→21:18)
[2018-06-17] MEDS: LIORESAL PO SCH ×2 (10:26→21:12)
[2018-06-17] MEDS: BUSPAR PO SCH ×2 (10:26→21:12)
[2018-06-17] MEDS: PREVACID SOLUTAB FEEDTUBE SCH (10:27)
[2018-06-17] MEDS: DELTASONE PO SCH (10:27)
[2018-06-17] MEDS: ZESTRIL PO SCH (10:39)
[2018-06-17] MEDS: NORVASC PO SCH (10:40)
[2018-06-17] MEDS: SODIUM CHLORIDE FLUSH SYRINGE 10 ML IV SCH ×2 (10:40→21:12)
--- NOTE | 2018-06-17 14:41 | Progress Note ---
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 According to chart, pt has not been using her O2 and started hallucinating. She was intubated in the ED. She was also hypotensive in the ED and started on Vasopressor/Levophed * CTA chest IMPRESSION: 1. Study degraded by artifact created by retained hardware in the thoracic spine and by motion artifact. 2. No evidence of central pulmonary artery emboli. However, segmental pulmonary artery emboli could be missed or overcalled due to significant artifact. 3. Complete consolidation left lower lobe with air bronchograms and volume loss consistent with atelectasis. There appears to be opacification of a portion of the left lower lobe bronchus. 4. Tip of the endotracheal tube projected in satisfactory position. 5. Cardiomegaly. 6. IVC filter. 7. Prominent kyphosis of the thoracic spine with extensive instrumentation with retained hardware. * Abdominal 1 view XRAY IMPRESSION: Nasogastric tube is terminating in the stomach. Mild degree left pleural effusion * pCXR FINDINGS: Heart: Prominent cardiac silhouette. Mediastinum/Vessels: Prominent central vessels. Lungs/Pleural space: Left lung base airspace consolidation. Bony thorax: No acute osseous abnormality. Life support devices: The endotracheal tube tip is obscured by hardware in the thoracic spine, but likely projects approximately 4 cm superior to the carlos manuel. IMPRESSION: Prominent cardiac silhouette. 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 coli has not resistant, changed antibiotics to Levaquin and Gentamicin on Friday. ID may stop the iv Gent today. OFF Vasopressor since Friday -DVT prophylaxis: sq Lovenox -Disposition: awaiting SNF placement full code History Interval history: Patient was seen and examined. Follow-up on current diagnosis of respiratory failure, extubated on Medical floor. Imaging, nursing note, chart, labs and old chart reviewed. Hospitalist Physical - Physical exam Narrative exam: Gen: WDWN, NAD, Awake, Alert, Orientated HEENT: NCAT, EOMI, PERRL, OP Clear Neck: supple, no adenopathy, no thyromegaly, no JVD CVS/Heart: RRR, normal S1S2, pulses present bilaterally Chest/Lungs: diminished bs bilateral, Symmetrical chest expansion, good air entry bilaterally GI/Abdomen: soft, NTND, good bowel sounds, no guarding or rebound /Bladder: no suprapubic tenderness, no CVA or paraspinal tenderness Extermity/Skin: no c/c/e, no obvious rash MSK: FROM x 4 Neuro: CN 2-12 grossly intact, no new focal deficits Psych: calm - Constitutional Vitals: Temp Pulse Resp BP Pulse Ox 98.2 F 102 H 20 106/51 93 06/17/18 12:06 06/17/18 12:06 06/17/18 12:06 06/17/18 12:06 06/17/18 12:06 General appearance: Present: no acute distress, well-nourished, obese, other (on Ventimask) Results - Labs CBC & Chem 7: 06/15/18 05:40 06/15/18 05:40 Labs: Laboratory Last Values WBC 8.2 K/mm3 (4.5-11.0) 06/15/18 05:40 RBC 4.19 M/mm3 (3.65-5.03) 06/15/18 05:40 Hgb 10.0 gm/dl (10.1-14.3) L 06/15/18 05:40 Hct 32.6 % (30.3-42.9) 06/15/18 05:40 MCV 78 fl (79-97) L 06/15/18 05:40 MCH 24 pg (28-32) L 06/15/18 05:40 MCHC 31 % (30-34) 06/15/18 05:40 RDW 22.6 % (13.2-15.2) H 06/15/18 05:40 Plt Count 116 K/mm3 (140-440) L 06/15/18 05:40 Lymph % (Auto) 18.4 % (13.4-35.0) 06/15/18 05:40 [place] % (Auto) 7.7 % (0.0-7.3) H 06/15/18 05:40 Eos % (Auto) 1.2 % (0.0-4.3) 06/15/18 05:40 Baso % (Auto) 0.2 % (0.0-1.8) 06/15/18 05:40 Lymph # 1.5 K/mm3 (1.2-5.4) 06/15/18 05:40 [place] # 0.6 K/mm3 (0.0-0.8) 06/15/18 05:40 Eos # 0.1 K/mm3 (0.0-0.4) 06/15/18 05:40 Baso # 0.0 K/mm3 (0.0-0.1) 06/15/18 05:40 Add Manual Diff Complete 06/12/18 00:19 Total Counted 100 06/12/18 00:19 Seg Neutrophils % 72.5 % (40.0-70.0) H 06/15/18 05:40 Seg Neuts % (Manual) 93.0 % (40.0-70.0) H 06/12/18 00:19 Band Neutrophils % 0 % 06/12/18 00:19 Lymphocytes % (Manual) 4.0 % (13.4-35.0) L 06/12/18 00:19 Reactive Lymphs % (Man) 0 % 06/12/18 00:19 Monocytes % (Manual) 3.0 % (0.0-7.3) 06/12/18 00:19 Eosinophils % (Manual) 0 % (0.0-4.3) 06/12/18 00:19 Basophils % (Manual) 0 % (0.0-1.8) 06/12/18 00:19 Metamyelocytes % 0 % 06/12/18 00:19 Myelocytes % 0 % 06/12/18 00:19 Promyelocytes % 0 % 06/12/18 00:19 Blast Cells % 0 % 06/12/18 00:19 Nucleated RBC % Not Reportable 06/12/18 00:19 Seg Neutrophils # 6.0 K/mm3 (1.8-7.7) 06/15/18 05:40 Seg Neutrophils # Man 18.9 K/mm3 (1.8-7.7) H 06/12/18 00:19 Band Neutrophils # 0.0 K/mm3 06/12/18 00:19 Lymphocytes # (Manual) 0.8 K/mm3 (1.2-5.4) L 06/12/18 00:19 Abs React Lymphs (Man) 0.0 K/mm3 06/12/18 00:19 Monocytes # (Manual) 0.6 K/mm3 (0.0-0.8) 06/12/18 00:19 Eosinophils # (Manual) 0.0 K/mm3 (0.0-0.4) 06/12/18 00:19 Basophils # (Manual) 0.0 K/mm3 (0.0-0.1) 06/12/18 00:19 Metamyelocytes # 0.0 K/mm3 06/12/18 00:19 Myelocytes # 0.0 K/mm3 06/12/18 00:19 Promyelocytes # 0.0 K/mm3 06/12/18 00:19 Blast Cells # 0.0 K/mm3 06/12/18 00:19 WBC Morphology Not Reportable 06/12/18 00:19 Hypersegmented Neuts Not Reportable 06/12/18 00:19 Hyposegmented Neuts Not Reportable 06/12/18 00:19 Hypogranular Neuts Not Reportable 06/12/18 00:19 Smudge Cells Not Reportable 06/12/18 00:19 Toxic Granulation Not Reportable 06/12/18 00:19 Toxic Vacuolation Not Reportable 06/12/18 00:19 Dohle Bodies Not Reportable 06/12/18 00:19 Pelger-Huet Anomaly Not Reportable 06/12/18 00:19 Neha Rods Not Reportable 06/12/18 00:19 Platelet Estimate Consistent w auto 06/12/18 00:19 Clumped Platelets Not Reportable 06/12/18 00:19 Plt Clumps, EDTA Not Reportable 06/12/18 00:19 Large Platelets Not Reportable 06/12/18 00:19 Giant Platelets Not Reportable 06/12/18 00:19 Platelet Satelliting Not Reportable 06/12/18 00:19 Plt Morphology Comment Not Reportable 06/12/18 00:19 RBC Morphology Not Reportable 06/12/18 00:19 Dimorphic RBCs Not Reportable 06/12/18 00:19 Polychromasia Not Reportable 06/12/18 00:19 Hypochromasia 1+ 06/12/18 00:19 Poikilocytosis Not Reportable 06/12/18 00:19 Anisocytosis 1+ 06/12/18 00:19 Microcytosis Not Reportable 06/12/18 00:19 Macrocytosis Not Reportable 06/12/18 00:19 Spherocytes Not Reportable 06/12/18 00:19 Pappenheimer Bodies Not Reportable 06/12/18 00:19 Sickle Cells Not Reportable 06/12/18 00:19 Target Cells Not Reportable 06/12/18 00:19 Tear Drop Cells Not Reportable 06/12/18 00:19 Ovalocytes Few 06/12/18 00:19 Stomatocytes Rare 05/31/18 08:50 Helmet Cells Not Reportable 06/12/18 00:19 Benoit-Dendron Bodies Not Reportable 06/12/18 00:19 [place] Rings Not Reportable 06/12/18 00:19 Damien Cells Not Reportable 06/12/18 00:19 Bite Cells Not Reportable 06/12/18 00:19 Crenated Cell Not Reportable 06/12/18 00:19 Elliptocytes Not Reportable 06/12/18 00:19 Acanthocytes (Spur) Not Reportable 06/12/18 00:19 Rouleaux Not Reportable 06/12/18 00:19 Hemoglobin C Crystals Not Reportable 06/12/18 00:19 Schistocytes Not Reportable 06/12/18 00:19 Malaria parasites Not Reportable 06/12/18 00:19 Hernan Bodies Not Reportable 06/12/18 00:19 Hem Pathologist Commnt No 06/12/18 00:19 D-Dimer 1062.49 ng/mlDDU (0-234) H 05/28/18 13:13 Heparin Anti-Xa, Unfract Negative (Negative) 06/03/18 10:55 POC ABG pH 7.384 (7.35-7.45) 06/05/18 04:10 POC ABG pCO2 56.3 (35-45) H 06/05/18 04:10 POC ABG pO2 61 (80-105) L 06/05/18 04:10 POC ABG HCO3 33.6 (22-26 mml/L) 06/05/18 04:10 POC ABG Total CO2 35 (23-27mmol/L) 06/05/18 04:10 POC ABG O2 Sat 90 06/05/18 04:10 POC ABG Base Excess 9 ((-2) - (+3)mmol/L) 06/05/18 04:10 FiO2 45 % 06/05/18 04:10 Sodium 140 mmol/L (137-145) 06/15/18 05:40 Potassium 3.8 mmol/L (3.6-5.0) 06/15/18 05:40 Chloride 100.2 mmol/L (98-107) 06/15/18 05:40 Carbon Dioxide 29 mmol/L (22-30) 06/15/18 05:40 Anion Gap 15 mmol/L 06/15/18 05:40 BUN 15 mg/dL (7-17) 06/15/18 05:40 Creatinine 0.4 mg/dL (0.7-1.2) L 06/15/18 05:40 Estimated GFR > 60 ml/min 06/15/18 05:40 BUN/Creatinine Ratio 38 % 06/15/18 05:40 Glucose 77 mg/dL (65-100) 06/15/18 05:40 POC Glucose 83 (70-105) 06/11/18 06:44 Lactic Acid 0.90 mmol/L (0.7-2.0) 05/28/18 14:50 Calcium 8.6 mg/dL (8.4-10.2) 06/15/18 05:40 Phosphorus 3.90 mg/dL (2.5-4.5) 06/15/18 05:40 Magnesium 2.20 mg/dL (1.7-2.3) 06/15/18 05:40 Total Bilirubin 0.50 mg/dL (0.1-1.2) 06/15/18 05:40 AST 16 units/L (5-40) 06/15/18 05:40 ALT 25 units/L (7-56) 06/15/18 05:40 Alkaline Phosphatase 55 units/L (35-129) 06/15/18 05:40 Troponin T < 0.010 ng/mL (0.00-0.029) 05/28/18 13:13 Total Protein 5.8 g/dL (6.3-8.2) L 06/15/18 05:40 Albumin 3.6 g/dL (3.9-5) L 06/15/18 05:40 Albumin/Globulin Ratio 1.6 % 06/15/18 05:40 Triglycerides 214 mg/dL (2-149) H 06/01/18 05:50 Serotonin Release Assay See scanned results 06/03/18 10:55 Urine Color Yellow (Yellow) 05/28/18 17:57 Urine Turbidity Clear (Clear) 05/28/18 17:57 Urine pH 6.0 (5.0-7.0) 05/28/18 17:57 Ur Specific [place] > 1.030 (1.003-1.030) H 05/28/18 17:57 Urine Protein 100 mg/dl mg/dL (Negative) 05/28/18 17:57 Urine Glucose (UA) Neg mg/dL (Negative) 05/28/18 17:57 Urine Ketones 20 mg/dL (Negative) 05/28/18 17:57 Urine Blood Sm (Negative) 05/28/18 17:57 Urine Nitrite Neg (Negative) 05/28/18 17:57 Urine Bilirubin Neg (Negative) 05/28/18 17:57 Urine Urobilinogen 2.0 mg/dL (<2.0) 05/28/18 17:57 Ur Leukocyte Esterase Neg (Negative) 05/28/18 17:57 Urine WBC (Auto) 1.0 /HPF (0.0-6.0) 05/28/18 17:57 Urine RBC (Auto) 2.0 /HPF (0.0-6.0) 05/28/18 17:57 U Epithel Cells (Auto) < 1.0 /HPF (0-13.0) 05/28/18 17:57 Urine Mucus Few /HPF 05/28/18 17:57 Random Gentamicin 0.4 ug/mL (0.0-10.0) 06/01/18 05:50 Vancomycin Trough 7.2 ug/mL (5.0-20.0) 05/31/18 09:39 Urine Opiates Screen Presumptive negative 05/29/18 23:50 Urine Methadone Screen Presumptive negative 05/29/18 23:50 Ur Barbiturates Screen Presumptive negative 05/29/18 23:50 Ur Phencyclidine Scrn Presumptive negative 05/29/18 23:50 Ur Amphetamines Screen Presumptive negative 05/29/18 23:50 U Benzodiazepines Scrn Presumptive negative 05/29/18 23:50 Urine Cocaine Screen Presumptive negative 05/29/18 23:50 U Marijuana (THC) Screen Presumptive negative 05/29/18 23:50 Drugs of Abuse Note Disclamer 05/29/18 23:50 Heparin-induced Plt Ab Negative (Negative) 06/03/18 10:55 UF Heparin High Dose 0 % Release 06/03/18 10:55 ESSIE UFH Low Dose 0.1 0 % Release 06/03/18 10:55 ESSIE UFH Low Dose 0.5 0 % Release 06/03/18 10:55 Active Medications - Current Medications Current Medications: Generic Name Dose Route Start Last Admin Trade Name Freq PRN Reason Stop Dose Admin Acetaminophen 650 mg 06/14/18 08:20 06/17/18 08:22 Tylenol PO 650 mg Q6H PRN Administration Pain, Mild (1-3) Albuterol 2.5 mg 06/10/18 17:42 Proventil IH Q4HRT PRN Shortness Of Breath Albuterol/Ipratropium 1 ampul 06/04/18 20:00 06/17/18 08:03 Duoneb *Not For Prn Use* IH 1 ampul BIDRT DOMINICK Administration Alprazolam 0.25 mg 06/13/18 11:07 06/15/18 21:42 Xanax PO 0.25 mg Q8H PRN Administration Anxiety Amlodipine Besylate 10 mg 05/29/18 10:00 06/17/18 10:40 Norvasc PO Not Given DAILY DOMINICK Arformoterol Tartrate 15 mcg 06/04/18 20:00 06/17/18 08:03 Brovana Nebu IH 15 mcg Q12HRT DOMINICK Administration Baclofen 10 mg 05/28/18 23:00 06/17/18 10:26 Lioresal PO 10 mg BID DOMINICK Administration Budesonide 0.5 mg 05/28/18 22:45 06/17/18 08:03 Pulmicort IH 0.5 mg Q12HRT DOMINICK Administration Buspirone HCl 5 mg 05/28/18 23:00 06/17/18 10:26 Buspar PO 5 mg BID DOMINICK Administration Fondaparinux 2.5 mg 06/09/18 22:00 06/16/18 21:42 Arixtra SUB-Q 2.5 mg DAILY@2200 DOMINICK Administration Lansoprazole 30 mg 05/30/18 10:00 06/17/18 10:27 Prevacid Solutab FEEDTUBE 30 mg QDAY DOMINICK Administration Lisinopril 10 mg 05/29/18 10:00 06/17/18 10:39 Zestril PO Not Given QDAY DOMINICK Lorazepam 2 mg 05/31/18 08:39 06/16/18 01:57 Ativan IV 2 mg Q1H PRN Administration CIWA-Ar 8-15 Lorazepam 4 mg 05/31/18 08:39 06/08/18 20:53 Ativan IV 4 mg Q1H PRN Administration CIWA-Ar 16-25 Lorazepam 4 mg 05/31/18 08:39 06/05/18 20:00 Ativan IV 4 mg Q15MIN PRN Administration CIWA-Ar >25 Metoprolol Tartrate 12.5 mg 06/10/18 00:00 Lopressor PO Q6H PRN HR>125 Prednisone 30 mg 06/13/18 10:00 06/17/18 10:27 Deltasone PO 30 mg QDAY DOMINICK Administration Simple Syrup 15 ml 05/28/18 22:45 06/06/18 12:00 Simple Syrup FEEDTUBE 15 ml PRN PRN Administration Hypoglycemia Simple Syrup 30 ml 05/28/18 22:45 Simple Syrup FEEDTUBE PRN PRN Hypoglycemia Sodium Bicarbonate 325 mg 05/28/18 22:45 06/07/18 23:48 Sodium Bicarbonate FEEDTUBE 325 mg PRN PRN Administration For Clogged Feeding Tube Sodium Chloride 10 ml 05/29/18 10:00 06/17/18 10:40 Sodium Chloride Flush Syringe 10 Ml IV 10 ml BID DOMINICK Administration Sodium Chloride 10 ml 05/28/18 22:45 04/20/19 05:50 Sodium Chloride Flush Syringe 10 Ml IV 10 ml PRN PRN Administration LINE FLUSH Venlafaxine HCl 100 mg 06/13/18 12:00 06/17/18 13:17 Effexor PO 100 mg TIDWM DOMINICK Administration Nutrition/Malnutrition Assess - Dietary Evaluation Nutrition/Malnutrition Findings: Nutrition Notes Start: 05/29/18 09:32 Freq: Status: Active Protocol: Document 06/16/18 10:43 CP (Rec: 06/16/18 10:46 CP [id number]) Co-Sign 06/16/18 10:43 LP Nutrition Notes Initial or Follow up Reassessment Current Diagnosis COPD,Hypertension,Respiratory Failure Other Pertinent Diagnosis Septic shock,Suspected PNA, COPD exacerbation, End-stage lung Dz Current Diet [facility] soft Labs/Tests Reviewed Pertinent Medications Reviewed Height 5 ft Weight 76.4 kg [place] Body Weight (kg) 45.45 BMI 32.8 Weight Status Obese Subjective/Other Information Pt reported that she had "no appetite" and ate 20% of her tray. She stated that she has been consuming her ONS, but did not want more. Pt stated that she likes dessert, cereal , and soups as noted in her food preferences. Percent of energy/protein needs met: 28%/23% Burn Absent Trauma Absent #1 Nutrition Diagnosis Inadequate oral intake Diagnosis Progress(for reassessment Continues documentation) Is patient on ventilator? No Is Patient Ambulatory and/or Out of Bed No REE-([facility]-confined to bed) [phone] Calculation Used for Recommendations [facility] Additional Notes Protein Needs: 49-61g (0.8-1g/ kg, 61 kg adjBW) Fluid Needs: 1 ml/kcal Fluid needs 1ml/kcal Nutrition Intervention Change Diet Order: Continue current Add Supplement/Snack (indicate name/kcal Ensure Enlive [place] or /protein ) Chocolate BID Provides kCal: 700 Provides Protein (gm) 40 Goal #1 Meet at least 75% of kcal and pro needs via PO and ONS intake Anticipated Discharge Needs: mechanical soft diet Follow-Up By: 06/19/18 Additional Comments Follow for PO and ONS intake
[2018-06-17] MEDS: NORCO 5/325 PO PRN (15:44)
--- NOTE | 2018-06-17 19:09 | Progress Note ---
Assessment and Plan Patient awake and resting on 3 litres O2.O2 saturation 94%.No acute respiratory distress. - Patient Problems (1) COPD (chronic obstructive pulmonary disease) Current Visit: Yes Status: Acute Qualifiers: COPD type: unspecified COPD Qualified Code(s): J44.9 - Chronic obstructive pulmonary disease, unspecified Plan to address problem: O2 3 litres via nasal canula Albuterol/atrovent aerosol treatments q 6 hours. Continue PO prednisone. Patient is on Fondoforinux. Patient is on Prevacid. (2) Hypercapnic respiratory failure Current Visit: Yes Status: Acute Plan to address problem: BIPAP as per protocol. O2 3 litres O2 when she is not on BIPAP. Albuterol/atrovent aerosol treatments q 6 hours. Continue PO prednisone. Patient is on Fondoforinux. Patient is on Prevacid (3) Encephalopathy Current Visit: Yes Status: Acute Plan to address problem: Management as per primary care. Subjective Date of service: 06/17/18 Principal diagnosis: Septic Shock (? LLL pneumonia); Ac on Ch hypoxic- hypercapnic Resp failure Interval history: Patient awake and resting on 3 litres O2.O2 saturation 94%.No acute respiratory distress. Objective Vital Signs - 12hr 06/17/18 06/17/18 06/17/18 08:06 08:39 10:39 Temperature Pulse Rate Pulse Rate [ 101 H 85 Anterior Bilateral Throughout] Respiratory Rate Respiratory 20 20 Rate [Anterior Bilateral Throughout] Blood Pressure 95/47 O2 Sat by Pulse 93 Oximetry 06/17/18 06/17/18 06/17/18 10:40 12:06 17:04 Temperature 98.2 F 99.0 F Pulse Rate 102 H 84 Pulse Rate [ Anterior Bilateral Throughout] Respiratory 20 20 Rate Respiratory Rate [Anterior Bilateral Throughout] Blood Pressure 95/47 106/51 111/52 O2 Sat by Pulse 93 94 Oximetry Constitutional: no acute distress, alert Eyes: non-icteric ENT: oropharynx moist, other (extubated) Neck: supple, no lymphadenopathy, no JVD, other (large neck circumference) Effort: mildly labored Ascultation: Bilateral: diminished breath sounds, rales, other (prolonged exp phase) Percussion: Bilateral: not dull Cardiovascular: regular rate and rhythm Gastrointestinal: normoactive bowel sounds, soft, non-tender, non-distended Integumentary: normal Extremities: no cyanosis, no edema, pink and warm, pulses normal Neurologic: non-focal exam (grossly), pupils equal and round, CN II-XII normal, motor strength normal and Psychiatric: mood appropriate, affect normal CBC and BMP: 06/15/18 05:40 06/15/18 05:40 ABG, PT/INR, D-dimer: ABG POC ABG pH 7.384 (7.35-7.45) 06/05/18 04:10 POC ABG pCO2 56.3 (35-45) H 06/05/18 04:10 POC ABG pO2 61 (80-105) L 06/05/18 04:10 POC ABG HCO3 33.6 (22-26 mml/L) 06/05/18 04:10 POC ABG Total CO2 35 (23-27mmol/L) 06/05/18 04:10 POC ABG O2 Sat 90 06/05/18 04:10 PT/INR, D-dimer D-Dimer 1062.49 ng/mlDDU (0-234) H 05/28/18 13:13 Abnormal lab findings: Abnormal Labs 05/28/18 05/28/18 05/28/18 13:13 13:13 13:13 WBC Hgb 9.7 L MCV 77 L MCH 23 L MCHC 29 L RDW 19.2 H Plt Count Lymph % (Auto) 8.5 L [place] % (Auto) 11.3 H Lymph # 0.8 L [place] # 1.1 H Seg Neutrophils % 79.8 H Seg Neuts % (Manual) Lymphocytes % (Manual) Nucleated RBC % Seg Neutrophils # Seg Neutrophils # Man Lymphocytes # (Manual) D-Dimer 1062.49 H POC ABG pH POC ABG pCO2 POC ABG pO2 Sodium Potassium Chloride Carbon Dioxide BUN 24 H Creatinine 0.6 L Glucose POC Glucose Calcium Magnesium Total Protein Albumin 3.5 L Triglycerides Ur Specific [place] 05/28/18 05/28/18 05/28/18 13:22 14:50 16:05 WBC Hgb MCV MCH MCHC RDW Plt Count Lymph % (Auto) [place] % (Auto) Lymph # [place] # Seg Neutrophils % Seg Neuts % (Manual) Lymphocytes % (Manual) Nucleated RBC % Seg Neutrophils # Seg Neutrophils # Man Lymphocytes # (Manual) D-Dimer POC ABG pH 7.249 L 7.126 L POC ABG pCO2 68.9 H POC ABG pO2 77 L Sodium Potassium Chloride 109.1 H Carbon Dioxide BUN 22 H Creatinine 0.5 L Glucose POC Glucose Calcium 7.5 L Magnesium Total Protein Albumin Triglycerides Ur Specific [place] 05/28/18 05/28/18 05/28/18 17:57 18:48 22:47 WBC Hgb MCV MCH MCHC RDW Plt Count Lymph % (Auto) [place] % (Auto) Lymph # [place] # Seg Neutrophils % Seg Neuts % (Manual) Lymphocytes % (Manual) Nucleated RBC % Seg Neutrophils # Seg Neutrophils # Man Lymphocytes # (Manual) D-Dimer POC ABG pH 7.195 L 7.312 L POC ABG pCO2 57.5 H POC ABG pO2 57 L 73 L Sodium Potassium Chloride Carbon Dioxide BUN Creatinine Glucose POC Glucose Calcium Magnesium Total Protein Albumin Triglycerides Ur Specific [place] > 1.030 H 05/30/18 05/30/18 05/31/18 06:10 10:42 04:23 WBC Hgb MCV MCH MCHC RDW Plt Count Lymph % (Auto) [place] % (Auto) Lymph # [place] # Seg Neutrophils % Seg Neuts % (Manual) Lymphocytes % (Manual) Nucleated RBC % Seg Neutrophils # Seg Neutrophils # Man Lymphocytes # (Manual) D-Dimer POC ABG pH 7.214 L 7.253 L POC ABG pCO2 64.5 H 56.4 H POC ABG pO2 78 L 74 L Sodium Potassium Chloride Carbon Dioxide BUN Creatinine Glucose POC Glucose Calcium Magnesium Total Protein Albumin Triglycerides Ur Specific [place] 05/31/18 05/31/18 05/31/18 06:30 08:50 08:50 WBC Hgb 9.3 L MCV 78 L MCH 23 L MCHC 29 L RDW 19.8 H Plt Count 131 L Lymph % (Auto) [place] % (Auto) Lymph # [place] # Seg Neutrophils % Seg Neuts % (Manual) 98.0 H Lymphocytes % (Manual) 2.0 L Nucleated RBC % 1.0 H Seg Neutrophils # Seg Neutrophils # Man 8.4 H Lymphocytes # (Manual) 0.2 L D-Dimer POC ABG pH POC ABG pCO2 POC ABG pO2 Sodium 153 H D Potassium Chloride 117.4 H Carbon Dioxide BUN 18 H Creatinine 0.4 L Glucose 159 H POC Glucose 146 H Calcium 8.3 L Magnesium Total Protein Albumin Triglycerides Ur Specific [place] 06/01/18 06/01/18 06/01/18 00:11 03:32 05:50 WBC Hgb 9.8 L MCV 77 L MCH 23 L MCHC 29 L RDW 20.1 H Plt Count 122 L Lymph % (Auto) [place] % (Auto) Lymph # [place] # Seg Neutrophils % Seg Neuts % (Manual) Lymphocytes % (Manual) Nucleated RBC % Seg Neutrophils # Seg Neutrophils # Man Lymphocytes # (Manual) D-Dimer POC ABG pH 7.465 H POC ABG pCO2 POC ABG pO2 Sodium Potassium Chloride Carbon Dioxide BUN Creatinine Glucose POC Glucose 149 H Calcium Magnesium Total Protein Albumin Triglycerides Ur Specific [place] 06/01/18 06/01/18 06/01/18 05:50 05:50 05:51 WBC Hgb MCV MCH MCHC RDW Plt Count Lymph % (Auto) [place] % (Auto) Lymph # [place] # Seg Neutrophils % Seg Neuts % (Manual) Lymphocytes % (Manual) Nucleated RBC % Seg Neutrophils # Seg Neutrophils # Man Lymphocytes # (Manual) D-Dimer POC ABG pH POC ABG pCO2 POC ABG pO2 Sodium 152 H Potassium Chloride 113.7 H Carbon Dioxide BUN 18 H Creatinine 0.3 L Glucose 146 H POC Glucose 146 H Calcium Magnesium 2.40 H Total Protein Albumin Triglycerides 214 H Ur Specific [place] 06/01/18 06/01/18 06/01/18 10:40 11:52 12:06 WBC Hgb MCV MCH MCHC RDW Plt Count Lymph % (Auto) [place] % (Auto) Lymph # [place] # Seg Neutrophils % Seg Neuts % (Manual) Lymphocytes % (Manual) Nucleated RBC % Seg Neutrophils # Seg Neutrophils # Man Lymphocytes # (Manual) D-Dimer POC ABG pH POC ABG pCO2 48.4 H POC ABG pO2 Sodium Potassium Chloride Carbon Dioxide BUN Creatinine Glucose POC Glucose 147 H 138 H Calcium Magnesium Total Protein Albumin Triglycerides Ur Specific [place] 06/01/18 06/02/18 06/02/18 18:08 00:39 04:11 WBC Hgb MCV MCH MCHC RDW Plt Count Lymph % (Auto) [place] % (Auto) Lymph # [place] # Seg Neutrophils % Seg Neuts % (Manual) Lymphocytes % (Manual) Nucleated RBC % Seg Neutrophils # Seg Neutrophils # Man Lymphocytes # (Manual) D-Dimer POC ABG pH POC ABG pCO2 50.3 H POC ABG pO2 72 L Sodium Potassium Chloride Carbon Dioxide BUN Creatinine Glucose POC Glucose 156 H 156 H Calcium Magnesium Total Protein Albumin Triglycerides Ur Specific [place] 06/02/18 06/02/18 06/02/18 05:16 07:47 07:47 WBC Hgb 10.0 L MCV 77 L MCH 23 L MCHC 29 L RDW 18.8 H Plt Count 103 L Lymph % (Auto) [place] % (Auto) Lymph # [place] # Seg Neutrophils % Seg Neuts % (Manual) Lymphocytes % (Manual) Nucleated RBC % Seg Neutrophils # Seg Neutrophils # Man Lymphocytes # (Manual) D-Dimer POC ABG pH POC ABG pCO2 POC ABG pO2 Sodium 148 H Potassium Chloride 109.4 H Carbon Dioxide 32 H BUN 21 H Creatinine 0.3 L Glucose 137 H POC Glucose 150 H Calcium Magnesium Total Protein Albumin Triglycerides Ur Specific [place] 06/02/18 06/02/18 06/02/18 11:46 17:51 19:58 WBC Hgb MCV MCH MCHC RDW Plt Count Lymph % (Auto) [place] % (Auto) Lymph # [place] # Seg Neutrophils % Seg Neuts % (Manual) Lymphocytes % (Manual) Nucleated RBC % Seg Neutrophils # Seg Neutrophils # Man Lymphocytes # (Manual) D-Dimer POC ABG pH POC ABG pCO2 POC ABG pO2 Sodium Potassium Chloride Carbon Dioxide BUN Creatinine Glucose POC Glucose 150 H 135 H 131 H Calcium Magnesium Total Protein Albumin Triglycerides Ur Specific [place] 06/03/18 06/03/18 06/03/18 04:28 04:59 04:59 WBC Hgb MCV 76 L MCH 23 L MCHC RDW 19.1 H Plt Count 99 L Lymph % (Auto) [place] % (Auto) Lymph # [place] # Seg Neutrophils % Seg Neuts % (Manual) Lymphocytes % (Manual) Nucleated RBC % Seg Neutrophils # Seg Neutrophils # Man Lymphocytes # (Manual) D-Dimer POC ABG pH POC ABG pCO2 50.4 H POC ABG pO2 65 L Sodium Potassium Chloride Carbon Dioxide BUN 23 H Creatinine 0.3 L Glucose 167 H POC Glucose Calcium Magnesium Total Protein Albumin Triglycerides Ur Specific [place] 06/03/18 06/03/18 06/03/18 05:17 12:20 17:28 WBC Hgb MCV MCH MCHC RDW Plt Count Lymph % (Auto) [place] % (Auto) Lymph # [place] # Seg Neutrophils % Seg Neuts % (Manual) Lymphocytes % (Manual) Nucleated RBC % Seg Neutrophils # Seg Neutrophils # Man Lymphocytes # (Manual) D-Dimer POC ABG pH POC ABG pCO2 POC ABG pO2 Sodium Potassium Chloride Carbon Dioxide BUN Creatinine Glucose POC Glucose 153 H 155 H 135 H Calcium Magnesium Total Protein Albumin Triglycerides Ur Specific [place] 06/03/18 06/04/18 06/04/18 23:23 04:37 05:15 WBC Hgb MCV MCH MCHC RDW Plt Count Lymph % (Auto) [place] % (Auto) Lymph # [place] # Seg Neutrophils % Seg Neuts % (Manual) Lymphocytes % (Manual) Nucleated RBC % Seg Neutrophils # Seg Neutrophils # Man Lymphocytes # (Manual) D-Dimer POC ABG pH POC ABG pCO2 51.3 H POC ABG pO2 79 L Sodium Potassium Chloride Carbon Dioxide BUN Creatinine Glucose POC Glucose 145 H 140 H Calcium Magnesium Total Protein Albumin Triglycerides Ur Specific [place] 06/04/18 06/04/18 06/05/18 11:47 17:22 01:13 WBC Hgb MCV MCH MCHC RDW Plt Count Lymph % (Auto) [place] % (Auto) Lymph # [place] # Seg Neutrophils % Seg Neuts % (Manual) Lymphocytes % (Manual) Nucleated RBC % Seg Neutrophils # Seg Neutrophils # Man Lymphocytes # (Manual) D-Dimer POC ABG pH POC ABG pCO2 POC ABG pO2 Sodium Potassium Chloride Carbon Dioxide BUN Creatinine Glucose POC Glucose 158 H 131 H 137 H Calcium Magnesium Total Protein Albumin Triglycerides Ur Specific [place] 06/05/18 06/05/18 06/05/18 04:10 06:33 11:41 WBC Hgb MCV MCH MCHC RDW Plt Count Lymph % (Auto) [place] % (Auto) Lymph # [place] # Seg Neutrophils % Seg Neuts % (Manual) Lymphocytes % (Manual) Nucleated RBC % Seg Neutrophils # Seg Neutrophils # Man Lymphocytes # (Manual) D-Dimer POC ABG pH POC ABG pCO2 56.3 H POC ABG pO2 61 L Sodium Potassium Chloride Carbon Dioxide BUN Creatinine Glucose POC Glucose 136 H 150 H Calcium Magnesium Total Protein Albumin Triglycerides Ur Specific [place] 06/05/18 06/05/18 06/05/18 15:27 19:49 22:44 WBC Hgb MCV MCH MCHC RDW Plt Count Lymph % (Auto) [place] % (Auto) Lymph # [place] # Seg Neutrophils % Seg Neuts % (Manual) Lymphocytes % (Manual) Nucleated RBC % Seg Neutrophils # Seg Neutrophils # Man Lymphocytes # (Manual) D-Dimer POC ABG pH POC ABG pCO2 POC ABG pO2 Sodium Potassium Chloride Carbon Dioxide 36 H D BUN 25 H Creatinine 0.4 L Glucose 130 H POC Glucose 125 H 137 H Calcium Magnesium Total Protein Albumin Triglycerides Ur Specific [place] 06/06/18 06/07/18 06/07/18 12:51 18:24 23:45 WBC Hgb MCV MCH MCHC RDW Plt Count Lymph % (Auto) [place] % (Auto) Lymph # [place] # Seg Neutrophils % Seg Neuts % (Manual) Lymphocytes % (Manual) Nucleated RBC % Seg Neutrophils # Seg Neutrophils # Man Lymphocytes # (Manual) D-Dimer POC ABG pH POC ABG pCO2 POC ABG pO2 Sodium Potassium Chloride Carbon Dioxide BUN Creatinine Glucose POC Glucose 66 L 139 H 130 H Calcium Magnesium Total Protein Albumin Triglycerides Ur Specific [place] 06/08/18 06/08/18 06/08/18 03:37 03:37 06:24 WBC Hgb MCV 76 L MCH 24 L MCHC RDW 19.8 H Plt Count 103 L Lymph % (Auto) [place] % (Auto) Lymph # [place] # Seg Neutrophils % Seg Neuts % (Manual) Lymphocytes % (Manual) Nucleated RBC % Seg Neutrophils # Seg Neutrophils # Man Lymphocytes # (Manual) D-Dimer POC ABG pH POC ABG pCO2 POC ABG pO2 Sodium Potassium Chloride Carbon Dioxide BUN Creatinine 0.2 L Glucose 123 H POC Glucose 119 H Calcium 8.3 L Magnesium Total Protein Albumin Triglycerides Ur Specific [place] 06/08/18 06/09/18 06/10/18 23:26 16:38 00:39 WBC Hgb MCV MCH MCHC RDW Plt Count Lymph % (Auto) [place] % (Auto) Lymph # [place] # Seg Neutrophils % Seg Neuts % (Manual) Lymphocytes % (Manual) Nucleated RBC % Seg Neutrophils # Seg Neutrophils # Man Lymphocytes # (Manual) D-Dimer POC ABG pH POC ABG pCO2 POC ABG pO2 Sodium Potassium Chloride Carbon Dioxide BUN Creatinine Glucose POC Glucose 106 H 109 H 114 H Calcium Magnesium Total Protein Albumin Triglycerides Ur Specific [place] 06/10/18 06/10/18 06/11/18 09:47 09:47 00:05 WBC 16.9 H Hgb MCV 78 L MCH 23 L MCHC RDW 20.0 H Plt Count Lymph % (Auto) 9.1 L [place] % (Auto) 8.5 H Lymph # [place] # 1.4 H Seg Neutrophils % 81.8 H Seg Neuts % (Manual) Lymphocytes % (Manual) Nucleated RBC % Seg Neutrophils # 13.9 H Seg Neutrophils # Man Lymphocytes # (Manual) D-Dimer POC ABG pH POC ABG pCO2 POC ABG pO2 Sodium Potassium Chloride Carbon Dioxide BUN Creatinine 0.3 L Glucose 110 H POC Glucose 110 H Calcium Magnesium Total Protein 5.9 L Albumin 3.5 L Triglycerides Ur Specific [place] 06/11/18 06/11/18 06/12/18 06:08 06:08 00:19 WBC 15.7 H 20.3 H Hgb MCV 77 L 77 L MCH 24 L 23 L MCHC RDW 20.3 H 20.7 H Plt Count Lymph % (Auto) 8.9 L [place] % (Auto) Lymph # [place] # 1.0 H Seg Neutrophils % 83.7 H Seg Neuts % (Manual) 93.0 H Lymphocytes % (Manual) 4.0 L Nucleated RBC % Seg Neutrophils # 13.2 H Seg Neutrophils # Man 18.9 H Lymphocytes # (Manual) 0.8 L D-Dimer POC ABG pH POC ABG pCO2 POC ABG pO2 Sodium Potassium 3.3 L Chlor[place] Carbon Dioxide BUN Creatinine 0.4 L Glucose POC Glucose Calcium Magnesium Total Protein Albumin Triglycerides Ur Specific [place] 06/13/18 06/13/18 06/15/18 05:00 05:00 05:40 WBC 18.0 H Hgb 10.0 L MCV 78 L 78 L MCH 23 L 24 L MCHC RDW 21.8 H 22.6 H Plt Count 116 L Lymph % (Auto) 7.2 L [place] % (Auto) 7.7 H Lymph # [place] # 1.1 H Seg Neutrophils % 86.3 H 72.5 H Seg Neuts % (Manual) Lymphocytes % (Manual) Nucleated RBC % Seg Neutrophils # 15.6 H Seg Neutrophils # Man Lymphocytes # (Manual) D-Dimer POC ABG pH POC ABG pCO2 POC ABG pO2 Sodium Potassium 3.5 L Chlor[place] Carbon Dioxide BUN 20 H Creatinine 0.5 L Glucose 138 H POC Glucose Calcium Magnesium Total Protein Albumin Triglycerides Ur Specific [place] 06/15/18 05:40 WBC Hgb MCV MCH MCHC RDW Plt Count Lymph % (Auto) [place] % (Auto) Lymph # [place] # Seg Neutrophils % Seg Neuts % (Manual) Lymphocytes % (Manual) Nucleated RBC % Seg Neutrophils # Seg Neutrophils # Man Lymphocytes # (Manual) D-Dimer POC ABG pH POC ABG pCO2 POC ABG pO2 Sodium Potassium Chloride Carbon Dioxide BUN Creatinine 0.4 L Glucose POC Glucose Calcium Magnesium Total Protein 5.8 L Albumin 3.6 L Triglycerides Ur Specific [place] Allied health notes reviewed: nursing
[2018-06-17] MEDS: ARIXTRA SUB-Q SCH (21:12)
[2018-06-18 06:07] LABS: Hematocrit 33.6 % (30.3-42.9); Hemoglobin 10.5 gm/dl (10.1-14.3); Mean Corpuscular HGB Conc 31 % (30-34); Mean Corpuscular Volume 79 fl (79-97); Platelet Count 120 K/mm3 (140-440); Red Blood Count 4.27 M/mm3 (3.65-5.03)
[2018-06-18 06:26] LABS: Red Cell Distribution Width 23.2 % (13.2-15.2)
[2018-06-18 06:33] LABS: BUN/Creatinine Ratio 28; Blood Urea Nitrogen 11 mg/dL (7-17); Hemolysis Index 30
[2018-06-18] MEDS: EFFEXOR PO SCH ×3 (07:59→17:10)
[2018-06-18] MEDS: NORCO 5/325 PO PRN ×3 (08:03→21:50)
--- NOTE | 2018-06-18 08:59 | Progress Note ---
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 According to chart, pt has not been using her O2 and started hallucinating. She was intubated in the ED. She was also hypotensive in the ED and started on Vasopressor/Levophed * CTA chest IMPRESSION: 1. Study degraded by artifact created by retained hardware in the thoracic spine and by motion artifact. 2. No evidence of central pulmonary artery emboli. However, segmental pulmonary artery emboli could be missed or overcalled due to significant artifact. 3. Complete consolidation left lower lobe with air bronchograms and volume loss consistent with atelectasis. There appears to be opacification of a portion of the left lower lobe bronchus. 4. Tip of the endotracheal tube projected in satisfactory position. 5. Cardiomegaly. 6. IVC filter. 7. Prominent kyphosis of the thoracic spine with extensive instrumentation with retained hardware. * Abdominal 1 view XRAY IMPRESSION: Nasogastric tube is terminating in the stomach. Mild degree left pleural effusion * pCXR FINDINGS: Heart: Prominent cardiac silhouette. Mediastinum/Vessels: Prominent central vessels. Lungs/Pleural space: Left lung base airspace consolidation. Bony thorax: No acute osseous abnormality. Life support devices: The endotracheal tube tip is obscured by hardware in the thoracic spine, but likely projects approximately 4 cm superior to the carlos manuel. IMPRESSION: Prominent cardiac silhouette. 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 coli has not resistant, changed antibiotics to Levaquin and Gentamicin on Friday. ID may stop the iv Gent today. OFF Vasopressor since Friday -DVT prophylaxis: sq Lovenox -Disposition: awaiting SNF placement full code History Interval history: Patient was seen and examined. Follow-up on current diagnosis of respiratory failure, extubated on Medical floor. Imaging, nursing note, chart, labs and old chart reviewed. Hospitalist Physical - Physical exam Narrative exam: Gen: WDWN, NAD, Awake, Alert, Orientated HEENT: NCAT, EOMI, PERRL, OP Clear Neck: supple, no adenopathy, no thyromegaly, no JVD CVS/Heart: RRR, normal S1S2, pulses present bilaterally Chest/Lungs: diminished bs bilateral, Symmetrical chest expansion, good air entry bilaterally GI/Abdomen: soft, NTND, good bowel sounds, no guarding or rebound /Bladder: no suprapubic tenderness, no CVA or paraspinal tenderness Extermity/Skin: no c/c/e, no obvious rash MSK: FROM x 4 Neuro: CN 2-12 grossly intact, no new focal deficits Psych: calm - Constitutional Vitals: Temp Pulse Resp BP Pulse Ox 98.4 F 84 20 126/60 93 06/18/18 06:03 06/18/18 06:03 06/18/18 06:03 06/18/18 06:03 06/18/18 06:03 General appearance: Present: no acute distress, well-nourished, obese, other (on Ventimask) Results - Labs CBC & Chem 7: 06/18/18 05:01 06/18/18 05:01 Labs: Laboratory Last Values WBC 9.6 K/mm3 (4.5-11.0) 06/18/18 05:01 RBC 4.27 M/mm3 (3.65-5.03) 06/18/18 05:01 Hgb 10.5 gm/dl (10.1-14.3) 06/18/18 05:01 Hct 33.6 % (30.3-42.9) 06/18/18 05:01 MCV 79 fl (79-97) 06/18/18 05:01 MCH 25 pg (28-32) L 06/18/18 05:01 MCHC 31 % (30-34) 06/18/18 05:01 RDW 23.2 % (13.2-15.2) H 06/18/18 05:01 Plt Count 120 K/mm3 (140-440) L 06/18/18 05:01 Lymph % (Auto) 18.4 % (13.4-35.0) 06/15/18 05:40 [place] % (Auto) 7.7 % (0.0-7.3) H 06/15/18 05:40 Eos % (Auto) 1.2 % (0.0-4.3) 06/15/18 05:40 Baso % (Auto) 0.2 % (0.0-1.8) 06/15/18 05:40 Lymph # 1.5 K/mm3 (1.2-5.4) 06/15/18 05:40 [place] # 0.6 K/mm3 (0.0-0.8) 06/15/18 05:40 Eos # 0.1 K/mm3 (0.0-0.4) 06/15/18 05:40 Baso # 0.0 K/mm3 (0.0-0.1) 06/15/18 05:40 Add Manual Diff Complete 06/12/18 00:19 Total Counted 100 06/12/18 00:19 Seg Neutrophils % 72.5 % (40.0-70.0) H 06/15/18 05:40 Seg Neuts % (Manual) 93.0 % (40.0-70.0) H 06/12/18 00:19 Band Neutrophils % 0 % 06/12/18 00:19 Lymphocytes % (Manual) 4.0 % (13.4-35.0) L 06/12/18 00:19 Reactive Lymphs % (Man) 0 % 06/12/18 00:19 Monocytes % (Manual) 3.0 % (0.0-7.3) 06/12/18 00:19 Eosinophils % (Manual) 0 % (0.0-4.3) 06/12/18 00:19 Basophils % (Manual) 0 % (0.0-1.8) 06/12/18 00:19 Metamyelocytes % 0 % 06/12/18 00:19 Myelocytes % 0 % 06/12/18 00:19 Promyelocytes % 0 % 06/12/18 00:19 Blast Cells % 0 % 06/12/18 00:19 Nucleated RBC % Not Reportable 06/12/18 00:19 Seg Neutrophils # 6.0 K/mm3 (1.8-7.7) 06/15/18 05:40 Seg Neutrophils # Man 18.9 K/mm3 (1.8-7.7) H 06/12/18 00:19 Band Neutrophils # 0.0 K/mm3 06/12/18 00:19 Lymphocytes # (Manual) 0.8 K/mm3 (1.2-5.4) L 06/12/18 00:19 Abs React Lymphs (Man) 0.0 K/mm3 06/12/18 00:19 Monocytes # (Manual) 0.6 K/mm3 (0.0-0.8) 06/12/18 00:19 Eosinophils # (Manual) 0.0 K/mm3 (0.0-0.4) 06/12/18 00:19 Basophils # (Manual) 0.0 K/mm3 (0.0-0.1) 06/12/18 00:19 Metamyelocytes # 0.0 K/mm3 06/12/18 00:19 Myelocytes # 0.0 K/mm3 06/12/18 00:19 Promyelocytes # 0.0 K/mm3 06/12/18 00:19 Blast Cells # 0.0 K/mm3 06/12/18 00:19 WBC Morphology Not Reportable 06/12/18 00:19 Hypersegmented Neuts Not Reportable 06/12/18 00:19 Hyposegmented Neuts Not Reportable 06/12/18 00:19 Hypogranular Neuts Not Reportable 06/12/18 00:19 Smudge Cells Not Reportable 06/12/18 00:19 Toxic Granulation Not Reportable 06/12/18 00:19 Toxic Vacuolation Not Reportable 06/12/18 00:19 Dohle Bodies Not Reportable 06/12/18 00:19 Pelger-Huet Anomaly Not Reportable 06/12/18 00:19 Neha Rods Not Reportable 06/12/18 00:19 Platelet Estimate Consistent w auto 06/12/18 00:19 Clumped Platelets Not Reportable 06/12/18 00:19 Plt Clumps, EDTA Not Reportable 06/12/18 00:19 Large Platelets Not Reportable 06/12/18 00:19 Giant Platelets Not Reportable 06/12/18 00:19 Platelet Satelliting Not Reportable 06/12/18 00:19 Plt Morphology Comment Not Reportable 06/12/18 00:19 RBC Morphology Not Reportable 06/12/18 00:19 Dimorphic RBCs Not Reportable 06/12/18 00:19 Polychromasia Not Reportable 06/12/18 00:19 Hypochromasia 1+ 06/12/18 00:19 Poikilocytosis Not Reportable 06/12/18 00:19 Anisocytosis 1+ 06/12/18 00:19 Microcytosis Not Reportable 06/12/18 00:19 Macrocytosis Not Reportable 06/12/18 00:19 Spherocytes Not Reportable 06/12/18 00:19 Pappenheimer Bodies Not Reportable 06/12/18 00:19 Sickle Cells Not Reportable 06/12/18 00:19 Target Cells Not Reportable 06/12/18 00:19 Tear Drop Cells Not Reportable 06/12/18 00:19 Ovalocytes Few 06/12/18 00:19 Stomatocytes Rare 05/31/18 08:50 Helmet Cells Not Reportable 06/12/18 00:19 Benoit-Kasota Bodies Not Reportable 06/12/18 00:19 [place] Rings Not Reportable 06/12/18 00:19 Damien Cells Not Reportable 06/12/18 00:19 Bite Cells Not Reportable 06/12/18 00:19 Crenated Cell Not Reportable 06/12/18 00:19 Elliptocytes Not Reportable 06/12/18 00:19 Acanthocytes (Spur) Not Reportable 06/12/18 00:19 Rouleaux Not Reportable 06/12/18 00:19 Hemoglobin C Crystals Not Reportable 06/12/18 00:19 Schistocytes Not Reportable 06/12/18 00:19 Malaria parasites Not Reportable 06/12/18 00:19 Hernan Bodies Not Reportable 06/12/18 00:19 Hem Pathologist Commnt No 06/12/18 00:19 D-Dimer 1062.49 ng/mlDDU (0-234) H 05/28/18 13:13 Heparin Anti-Xa, Unfract Negative (Negative) 06/03/18 10:55 POC ABG pH 7.384 (7.35-7.45) 06/05/18 04:10 POC ABG pCO2 56.3 (35-45) H 06/05/18 04:10 POC ABG pO2 61 (80-105) L 06/05/18 04:10 POC ABG HCO3 33.6 (22-26 mml/L) 06/05/18 04:10 POC ABG Total CO2 35 (23-27mmol/L) 06/05/18 04:10 POC ABG O2 Sat 90 06/05/18 04:10 POC ABG Base Excess 9 ((-2) - (+3)mmol/L) 06/05/18 04:10 FiO2 45 % 06/05/18 04:10 Sodium 138 mmol/L (137-145) 06/18/18 05:01 Potassium 4.1 mmol/L (3.6-5.0) 06/18/18 05:01 Chloride 99.1 mmol/L (98-107) 06/18/18 05:01 Carbon Dioxide 24 mmol/L (22-30) 06/18/18 05:01 Anion Gap 19 mmol/L 06/18/18 05:01 BUN 11 mg/dL (7-17) 06/18/18 05:01 Creatinine 0.4 mg/dL (0.7-1.2) L 06/18/18 05:01 Estimated GFR > 60 ml/min 06/18/18 05:01 BUN/Creatinine Ratio 28 % 06/18/18 05:01 Glucose 89 mg/dL (65-100) 06/18/18 05:01 POC Glucose 83 (70-105) 06/11/18 06:44 Lactic Acid 0.90 mmol/L (0.7-2.0) 05/28/18 14:50 Calcium 9.0 mg/dL (8.4-10.2) 06/18/18 05:01 Phosphorus 3.90 mg/dL (2.5-4.5) 06/15/18 05:40 Magnesium 2.20 mg/dL (1.7-2.3) 06/15/18 05:40 Total Bilirubin 0.50 mg/dL (0.1-1.2) 06/15/18 05:40 AST 16 units/L (5-40) 06/15/18 05:40 ALT 25 units/L (7-56) 06/15/18 05:40 Alkaline Phosphatase 55 units/L (35-129) 06/15/18 05:40 Troponin T < 0.010 ng/mL (0.00-0.029) 05/28/18 13:13 Total Protein 5.8 g/dL (6.3-8.2) L 06/15/18 05:40 Albumin 3.6 g/dL (3.9-5) L 06/15/18 05:40 Albumin/Globulin Ratio 1.6 % 06/15/18 05:40 Triglycerides 214 mg/dL (2-149) H 06/01/18 05:50 Serotonin Release Assay See scanned results 06/03/18 10:55 Urine Color Yellow (Yellow) 05/28/18 17:57 Urine Turbidity Clear (Clear) 05/28/18 17:57 Urine pH 6.0 (5.0-7.0) 05/28/18 17:57 Ur Specific [place] > 1.030 (1.003-1.030) H 05/28/18 17:57 Urine Protein 100 mg/dl mg/dL (Negative) 05/28/18 17:57 Urine Glucose (UA) Neg mg/dL (Negative) 05/28/18 17:57 Urine Ketones 20 mg/dL (Negative) 05/28/18 17:57 Urine Blood Sm (Negative) 05/28/18 17:57 Urine Nitrite Neg (Negative) 05/28/18 17:57 Urine Bilirubin Neg (Negative) 05/28/18 17:57 Urine Urobilinogen 2.0 mg/dL (<2.0) 05/28/18 17:57 Ur Leukocyte Esterase Neg (Negative) 05/28/18 17:57 Urine WBC (Auto) 1.0 /HPF (0.0-6.0) 05/28/18 17:57 Urine RBC (Auto) 2.0 /HPF (0.0-6.0) 05/28/18 17:57 U Epithel Cells (Auto) < 1.0 /HPF (0-13.0) 05/28/18 17:57 Urine Mucus Few /HPF 05/28/18 17:57 Random Gentamicin 0.4 ug/mL (0.0-10.0) 06/01/18 05:50 Vancomycin Trough 7.2 ug/mL (5.0-20.0) 05/31/18 09:39 Urine Opiates Screen Presumptive negative 05/29/18 23:50 Urine Methadone Screen Presumptive negative 05/29/18 23:50 Ur Barbiturates Screen Presumptive negative 05/29/18 23:50 Ur Phencyclidine Scrn Presumptive negative 05/29/18 23:50 Ur Amphetamines Screen Presumptive negative 05/29/18 23:50 U Benzodiazepines Scrn Presumptive negative 05/29/18 23:50 Urine Cocaine Screen Presumptive negative 05/29/18 23:50 U Marijuana (THC) Screen Presumptive negative 05/29/18 23:50 Drugs of Abuse Note Disclamer 05/29/18 23:50 Heparin-induced Plt Ab Negative (Negative) 06/03/18 10:55 UF Heparin High Dose 0 % Release 06/03/18 10:55 ESSIE UFH Low Dose 0.1 0 % Release 06/03/18 10:55 ESSIE UFH Low Dose 0.5 0 % Release 06/03/18 10:55 Active Medications - Current Medications Current Medications: Generic Name Dose Route Start Last Admin Trade Name Freq PRN Reason Stop Dose Admin Acetaminophen 650 mg 06/14/18 08:20 06/17/18 21:18 Tylenol PO 650 mg Q6H PRN Administration Pain, Mild (1-3) Acetaminophen/Hydrocodone Bitart 1 each 06/17/18 14:45 06/18/18 08:03 Curtice 5/325 PO 1 each Q4H PRN Administration Pain, Moderate (4-6) Albuterol 2.5 mg 06/10/18 17:42 Proventil IH Q4HRT PRN Shortness Of Breath Albuterol/Ipratropium 1 ampul 06/04/18 20:00 06/17/18 21:20 Duoneb *Not For Prn Use* IH Not Given BIDRT DOMINICK Alprazolam 0.25 mg 06/13/18 11:07 06/15/18 21:42 Xanax PO 0.25 mg Q8H PRN Administration Anxiety Arformoterol Tartrate 15 mcg 06/04/18 20:00 06/17/18 21:05 Brovana Nebu IH 15 mcg Q12HRT DOMINICK Administration Baclofen 10 mg 05/28/18 23:00 06/17/18 21:12 Lioresal PO 10 mg BID DOMINICK Administration Budesonide 0.5 mg 05/28/18 22:45 06/17/18 21:05 Pulmicort IH 0.5 mg Q12HRT DOMINICK Administration Buspirone HCl 5 mg 05/28/18 23:00 06/17/18 21:12 Buspar PO 5 mg BID DOMINICK Administration Fondaparinux 2.5 mg 06/09/18 22:00 06/17/18 21:12 Arixtra SUB-Q 2.5 mg DAILY@2200 DOMINICK Administration Lansoprazole 30 mg 05/30/18 10:00 06/17/18 10:27 Prevacid Solutab FEEDTUBE 30 mg QDAY DOMINICK Administration Lorazepam 2 mg 05/31/18 08:39 06/16/18 01:57 Ativan IV 2 mg Q1H PRN Administration CIWA-Ar 8-15 Lorazepam 4 mg 05/31/18 08:39 06/08/18 20:53 Ativan IV 4 mg Q1H PRN Administration CIWA-Ar 16-25 Lorazepam 4 mg 05/31/18 08:39 06/05/18 20:00 Ativan IV 4 mg Q15MIN PRN Administration CIWA-Ar >25 Metoprolol Tartrate 12.5 mg 06/10/18 00:00 Lopressor PO Q6H PRN HR>125 Prednisone 30 mg 06/13/18 10:00 06/17/18 10:27 Deltasone PO 30 mg QDAY DOMINICK Administration Simple Syrup 15 ml 05/28/18 22:45 06/06/18 12:00 Simple Syrup FEEDTUBE 15 ml PRN PRN Administration Hypoglycemia Simple Syrup 30 ml 05/28/18 22:45 Simple Syrup FEEDTUBE PRN PRN Hypoglycemia Sodium Bicarbonate 325 mg 05/28/18 22:45 06/07/18 23:48 Sodium Bicarbonate FEEDTUBE 325 mg PRN PRN Administration For Clogged Feeding Tube Sodium Chloride 10 ml 05/29/18 10:00 06/17/18 21:12 Sodium Chloride Flush Syringe 10 Ml IV 10 ml BID DOMINICK Administration Sodium Chloride 10 ml 05/28/18 22:45 06/06/18 05:50 Sodium Chloride Flush Syringe 10 Ml IV 10 ml PRN PRN Administration LINE FLUSH Venlafaxine HCl 100 mg 06/13/18 12:00 06/18/18 07:59 Effexor PO 100 mg TIDWM DOMINICK Administration Nutrition/Malnutrition Assess - Dietary Evaluation Nutrition/Malnutrition Findings: Nutrition Notes Start: 05/29/18 09:32 Freq: Status: Active Protocol: Document 06/16/18 10:43 CP (Rec: 06/16/18 10:46 CP [id number]) Co-Sign 06/16/18 10:43 LP Nutrition Notes Initial or Follow up Reassessment Current Diagnosis COPD,Hypertension,Respiratory Failure Other Pertinent Diagnosis Septic shock,Suspected PNA, COPD exacerbation, End-stage lung Dz Current Diet [facility] soft Labs/Tests Reviewed Pertinent Medications Reviewed Height 5 ft Weight 76.4 kg [place] Body Weight (kg) 45.45 BMI 32.8 Weight Status Obese Subjective/Other Information Pt reported that she had "no appetite" and ate 20% of her tray. She stated that she has been consuming her ONS, but did not want more. Pt stated that she likes dessert, cereal , and soups as noted in her food preferences. Percent of energy/protein needs met: 28%/23% Burn Absent Trauma Absent #1 Nutrition Diagnosis Inadequate oral intake Diagnosis Progress(for reassessment Continues documentation) Is patient on ventilator? No Is Patient Ambulatory and/or Out of Bed No REE-([facility]-confined to bed) 9533.140 Calculation Used for Recommendations [facility] Additional Notes Protein Needs: 49-61g (0.8-1g/ kg, 61 kg adjBW) Fluid Needs: 1 ml/kcal Fluid needs 1ml/kcal Nutrition Intervention Change Diet Order: Continue current Add Supplement/Snack (indicate name/kcal Ensure Enlive [place] or /protein ) Chocolate BID Provides kCal: 700 Provides Protein (gm) 40 Goal #1 Meet at least 75% of kcal and pro needs via PO and ONS intake Anticipated Discharge Needs: mechanical soft diet Follow-Up By: 06/19/18 Additional Comments Follow for PO and ONS intake
[2018-06-18] MEDS: LIORESAL PO SCH ×2 (10:55→21:17)
[2018-06-18] MEDS: DELTASONE PO SCH (10:55)
[2018-06-18] MEDS: PREVACID SOLUTAB FEEDTUBE SCH (10:56)
[2018-06-18] MEDS: BUSPAR PO SCH ×2 (10:56→21:17)
--- NOTE | 2018-06-18 11:59 | Progress Note ---
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 According to chart, pt has not been using her O2 and started hallucinating. She was intubated in the ED. She was also hypotensive in the ED and started on Vasopressor/Levophed * CTA chest IMPRESSION: 1. Study degraded by artifact created by retained hardware in the thoracic spine and by motion artifact. 2. No evidence of central pulmonary artery emboli. However, segmental pulmonary artery emboli could be missed or overcalled due to significant artifact. 3. Complete consolidation left lower lobe with air bronchograms and volume loss consistent with atelectasis. There appears to be opacification of a portion of the left lower lobe bronchus. 4. Tip of the endotracheal tube projected in satisfactory position. 5. Cardiomegaly. 6. IVC filter. 7. Prominent kyphosis of the thoracic spine with extensive instrumentation with retained hardware. * Abdominal 1 view XRAY IMPRESSION: Nasogastric tube is terminating in the stomach. Mild degree left pleural effusion * pCXR FINDINGS: Heart: Prominent cardiac silhouette. Mediastinum/Vessels: Prominent central vessels. Lungs/Pleural space: Left lung base airspace consolidation. Bony thorax: No acute osseous abnormality. Life support devices: The endotracheal tube tip is obscured by hardware in the thoracic spine, but likely projects approximately 4 cm superior to the carlos manuel. IMPRESSION: Prominent cardiac silhouette. 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 coli has not resistant, changed antibiotics to Levaquin and Gentamicin on Friday. ID may stop the iv Gent today. OFF Vasopressor since Friday -DVT prophylaxis: sq Lovenox -Disposition: awaiting SNF placement full code History Interval history: Patient was seen and examined. Follow-up on current diagnosis of respiratory failure, extubated on Medical floor. Imaging, nursing note, chart, labs and old chart reviewed. Hospitalist Physical - Physical exam Narrative exam: Gen: WDWN, NAD, Awake, Alert, Orientated HEENT: NCAT, EOMI, PERRL, OP Clear Neck: supple, no adenopathy, no thyromegaly, no JVD CVS/Heart: RRR, normal S1S2, pulses present bilaterally Chest/Lungs: diminished bs bilateral, Symmetrical chest expansion, good air entry bilaterally GI/Abdomen: soft, NTND, good bowel sounds, no guarding or rebound /Bladder: no suprapubic tenderness, no CVA or paraspinal tenderness Extermity/Skin: no c/c/e, no obvious rash MSK: FROM x 4 Neuro: CN 2-12 grossly intact, no new focal deficits Psych: calm - Constitutional Vitals: Temp Pulse Resp BP Pulse Ox 98.4 F 84 20 126/60 93 06/18/18 06:03 06/18/18 06:03 06/18/18 06:03 06/18/18 06:03 06/18/18 06:03 General appearance: Present: no acute distress, well-nourished, obese, other (on Ventimask) Results - Labs CBC & Chem 7: 06/18/18 05:01 06/18/18 05:01 Labs: Laboratory Last Values WBC 9.6 K/mm3 (4.5-11.0) 06/18/18 05:01 RBC 4.27 M/mm3 (3.65-5.03) 06/18/18 05:01 Hgb 10.5 gm/dl (10.1-14.3) 06/18/18 05:01 Hct 33.6 % (30.3-42.9) 06/18/18 05:01 MCV 79 fl (79-97) 06/18/18 05:01 MCH 25 pg (28-32) L 06/18/18 05:01 MCHC 31 % (30-34) 06/18/18 05:01 RDW 23.2 % (13.2-15.2) H 06/18/18 05:01 Plt Count 120 K/mm3 (140-440) L 06/18/18 05:01 Lymph % (Auto) 18.4 % (13.4-35.0) 06/15/18 05:40 [place] % (Auto) 7.7 % (0.0-7.3) H 06/15/18 05:40 Eos % (Auto) 1.2 % (0.0-4.3) 06/15/18 05:40 Baso % (Auto) 0.2 % (0.0-1.8) 06/15/18 05:40 Lymph # 1.5 K/mm3 (1.2-5.4) 06/15/18 05:40 [place] # 0.6 K/mm3 (0.0-0.8) 06/15/18 05:40 Eos # 0.1 K/mm3 (0.0-0.4) 06/15/18 05:40 Baso # 0.0 K/mm3 (0.0-0.1) 06/15/18 05:40 Add Manual Diff Complete 06/12/18 00:19 Total Counted 100 06/12/18 00:19 Seg Neutrophils % 72.5 % (40.0-70.0) H 06/15/18 05:40 Seg Neuts % (Manual) 93.0 % (40.0-70.0) H 06/12/18 00:19 Band Neutrophils % 0 % 06/12/18 00:19 Lymphocytes % (Manual) 4.0 % (13.4-35.0) L 06/12/18 00:19 Reactive Lymphs % (Man) 0 % 06/12/18 00:19 Monocytes % (Manual) 3.0 % (0.0-7.3) 06/12/18 00:19 Eosinophils % (Manual) 0 % (0.0-4.3) 06/12/18 00:19 Basophils % (Manual) 0 % (0.0-1.8) 06/12/18 00:19 Metamyelocytes % 0 % 06/12/18 00:19 Myelocytes % 0 % 06/12/18 00:19 Promyelocytes % 0 % 06/12/18 00:19 Blast Cells % 0 % 06/12/18 00:19 Nucleated RBC % Not Reportable 06/12/18 00:19 Seg Neutrophils # 6.0 K/mm3 (1.8-7.7) 06/15/18 05:40 Seg Neutrophils # Man 18.9 K/mm3 (1.8-7.7) H 06/12/18 00:19 Band Neutrophils # 0.0 K/mm3 06/12/18 00:19 Lymphocytes # (Manual) 0.8 K/mm3 (1.2-5.4) L 06/12/18 00:19 Abs React Lymphs (Man) 0.0 K/mm3 06/12/18 00:19 Monocytes # (Manual) 0.6 K/mm3 (0.0-0.8) 06/12/18 00:19 Eosinophils # (Manual) 0.0 K/mm3 (0.0-0.4) 06/12/18 00:19 Basophils # (Manual) 0.0 K/mm3 (0.0-0.1) 06/12/18 00:19 Metamyelocytes # 0.0 K/mm3 06/12/18 00:19 Myelocytes # 0.0 K/mm3 06/12/18 00:19 Promyelocytes # 0.0 K/mm3 06/12/18 00:19 Blast Cells # 0.0 K/mm3 06/12/18 00:19 WBC Morphology Not Reportable 06/12/18 00:19 Hypersegmented Neuts Not Reportable 06/12/18 00:19 Hyposegmented Neuts Not Reportable 06/12/18 00:19 Hypogranular Neuts Not Reportable 06/12/18 00:19 Smudge Cells Not Reportable 06/12/18 00:19 Toxic Granulation Not Reportable 06/12/18 00:19 Toxic Vacuolation Not Reportable 06/12/18 00:19 Dohle Bodies Not Reportable 06/12/18 00:19 Pelger-Huet Anomaly Not Reportable 06/12/18 00:19 Neha Rods Not Reportable 06/12/18 00:19 Platelet Estimate Consistent w auto 06/12/18 00:19 Clumped Platelets Not Reportable 06/12/18 00:19 Plt Clumps, EDTA Not Reportable 06/12/18 00:19 Large Platelets Not Reportable 06/12/18 00:19 Giant Platelets Not Reportable 06/12/18 00:19 Platelet Satelliting Not Reportable 06/12/18 00:19 Plt Morphology Comment Not Reportable 06/12/18 00:19 RBC Morphology Not Reportable 06/12/18 00:19 Dimorphic RBCs Not Reportable 06/12/18 00:19 Polychromasia Not Reportable 06/12/18 00:19 Hypochromasia 1+ 06/12/18 00:19 Poikilocytosis Not Reportable 06/12/18 00:19 Anisocytosis 1+ 06/12/18 00:19 Microcytosis Not Reportable 06/12/18 00:19 Macrocytosis Not Reportable 06/12/18 00:19 Spherocytes Not Reportable 06/12/18 00:19 Pappenheimer Bodies Not Reportable 06/12/18 00:19 Sickle Cells Not Reportable 06/12/18 00:19 Target Cells Not Reportable 06/12/18 00:19 Tear Drop Cells Not Reportable 06/12/18 00:19 Ovalocytes Few 06/12/18 00:19 Stomatocytes Rare 05/31/18 08:50 Helmet Cells Not Reportable 06/12/18 00:19 [place] Bodies Not Reportable 06/12/18 00:19 [place] Rings Not Reportable 06/12/18 00:19 Damien Cells Not Reportable 06/12/18 00:19 Bite Cells Not Reportable 06/12/18 00:19 Crenated Cell Not Reportable 06/12/18 00:19 Elliptocytes Not Reportable 06/12/18 00:19 Acanthocytes (Spur) Not Reportable 06/12/18 00:19 Rouleaux Not Reportable 06/12/18 00:19 Hemoglobin C Crystals Not Reportable 06/12/18 00:19 Schistocytes Not Reportable 06/12/18 00:19 Malaria parasites Not Reportable 06/12/18 00:19 Hernan Bodies Not Reportable 06/12/18 00:19 Hem Pathologist Commnt No 06/12/18 00:19 D-Dimer 1062.49 ng/mlDDU (0-234) H 05/28/18 13:13 Heparin Anti-Xa, Unfract Negative (Negative) 06/03/18 10:55 POC ABG pH 7.384 (7.35-7.45) 06/05/18 04:10 POC ABG pCO2 56.3 (35-45) H 06/05/18 04:10 POC ABG pO2 61 (80-105) L 06/05/18 04:10 POC ABG HCO3 33.6 (22-26 mml/L) 06/05/18 04:10 POC ABG Total CO2 35 (23-27mmol/L) 06/05/18 04:10 POC ABG O2 Sat 90 06/05/18 04:10 POC ABG Base Excess 9 ((-2) - (+3)mmol/L) 06/05/18 04:10 FiO2 45 % 06/05/18 04:10 Sodium 138 mmol/L (137-145) 06/18/18 05:01 Potassium 4.1 mmol/L (3.6-5.0) 06/18/18 05:01 Chloride 99.1 mmol/L (98-107) 06/18/18 05:01 Carbon Dioxide 24 mmol/L (22-30) 06/18/18 05:01 Anion Gap 19 mmol/L 06/18/18 05:01 BUN 11 mg/dL (7-17) 06/18/18 05:01 Creatinine 0.4 mg/dL (0.7-1.2) L 06/18/18 05:01 Estimated GFR > 60 ml/min 06/18/18 05:01 BUN/Creatinine Ratio 28 % 06/18/18 05:01 Glucose 89 mg/dL (65-100) 06/18/18 05:01 POC Glucose 83 (70-105) 06/11/18 06:44 Lactic Acid 0.90 mmol/L (0.7-2.0) 05/28/18 14:50 Calcium 9.0 mg/dL (8.4-10.2) 06/18/18 05:01 Phosphorus 3.90 mg/dL (2.5-4.5) 06/15/18 05:40 Magnesium 2.20 mg/dL (1.7-2.3) 06/15/18 05:40 Total Bilirubin 0.50 mg/dL (0.1-1.2) 06/15/18 05:40 AST 16 units/L (5-40) 06/15/18 05:40 ALT 25 units/L (7-56) 06/15/18 05:40 Alkaline Phosphatase 55 units/L (35-129) 06/15/18 05:40 Troponin T < 0.010 ng/mL (0.00-0.029) 05/28/18 13:13 Total Protein 5.8 g/dL (6.3-8.2) L 06/15/18 05:40 Albumin 3.6 g/dL (3.9-5) L 06/15/18 05:40 Albumin/Globulin Ratio 1.6 % 06/15/18 05:40 Triglycerides 214 mg/dL (2-149) H 06/01/18 05:50 Serotonin Release Assay See scanned results 06/03/18 10:55 Urine Color Yellow (Yellow) 05/28/18 17:57 Urine Turbidity Clear (Clear) 05/28/18 17:57 Urine pH 6.0 (5.0-7.0) 05/28/18 17:57 Ur Specific [employer] [place] > 1.030 (1.003-1.030) H 05/28/18 17:57 Urine Protein 100 mg/dl mg/dL (Negative) 05/28/18 17:57 Urine Glucose (UA) Neg mg/dL (Negative) 05/28/18 17:57 Urine Ketones 20 mg/dL (Negative) 05/28/18 17:57 Urine Blood Sm (Negative) 05/28/18 17:57 Urine Nitrite Neg (Negative) 05/28/18 17:57 Urine Bilirubin Neg (Negative) 05/28/18 17:57 Urine Urobilinogen 2.0 mg/dL (<2.0) 05/28/18 17:57 Ur Leukocyte Esterase Neg (Negative) 05/28/18 17:57 Urine WBC (Auto) 1.0 /HPF (0.0-6.0) 05/28/18 17:57 Urine RBC (Auto) 2.0 /HPF (0.0-6.0) 05/28/18 17:57 U Epithel Cells (Auto) < 1.0 /HPF (0-13.0) 05/28/18 17:57 Urine Mucus Few /HPF 05/28/18 17:57 Random Gentamicin 0.4 ug/mL (0.0-10.0) 06/01/18 05:50 Vancomycin Trough 7.2 ug/mL (5.0-20.0) 05/31/18 09:39 Urine Opiates Screen Presumptive negative 05/29/18 23:50 Urine Methadone Screen Presumptive negative 05/29/18 23:50 Ur Barbiturates Screen Presumptive negative 05/29/18 23:50 Ur Phencyclidine Scrn Presumptive negative 05/29/18 23:50 Ur Amphetamines Screen Presumptive negative 05/29/18 23:50 U Benzodiazepines Scrn Presumptive negative 05/29/18 23:50 Urine Cocaine Screen Presumptive negative 05/29/18 23:50 U Marijuana (THC) Screen Presumptive negative 05/29/18 23:50 Drugs of Abuse Note Disclamer 05/29/18 23:50 Heparin-induced Plt Ab Negative (Negative) 06/03/18 10:55 UF Heparin High Dose 0 % Release 06/03/18 10:55 ESSIE UFH Low Dose 0.1 0 % Release 06/03/18 10:55 ESSIE UFH Low Dose 0.5 0 % Release 06/03/18 10:55 Active Medications - Current Medications Current Medications: Generic Name Dose Route Start Last Admin Trade Name Freq PRN Reason Stop Dose Admin Acetaminophen 650 mg 06/14/18 08:20 06/17/18 21:18 Tylenol PO 650 mg Q6H PRN Administration Pain, Mild (1-3) Acetaminophen/Hydrocodone Bitart 1 each 06/17/18 14:45 06/18/18 08:03 Sadorus 5/325 PO 1 each Q4H PRN Administration Pain, Moderate (4-6) Albuterol 2.5 mg 06/10/18 17:42 Proventil IH Q4HRT PRN Shortness Of Breath Albuterol/Ipratropium 1 ampul 06/04/18 20:00 06/17/18 21:20 Duoneb *Not For Prn Use* IH Not Given BIDRT DOMINICK Alprazolam 0.25 mg 06/13/18 11:07 06/15/18 21:42 Xanax PO 0.25 mg Q8H PRN Administration Anxiety Arformoterol Tartrate 15 mcg 06/04/18 20:00 06/17/18 21:05 Brovana Nebu IH 15 mcg Q12HRT DOMINICK Administration Baclofen 10 mg 05/28/18 23:00 06/18/18 10:55 Lioresal PO 10 mg BID DOMINICK Administration Budesonide 0.5 mg 05/28/18 22:45 06/17/18 21:05 Pulmicort IH 0.5 mg Q12HRT DOMINICK Administration Buspirone HCl 5 mg 05/28/18 23:00 06/18/18 10:56 Buspar PO 5 mg BID DOMINICK Administration Fondaparinux 2.5 mg 06/09/18 22:00 06/17/18 21:12 Arixtra SUB-Q 2.5 mg DAILY@2200 DOMINICK Administration Lansoprazole 30 mg 05/30/18 10:00 06/18/18 10:56 Prevacid Solutab FEEDTUBE 30 mg QDAY DOMINICK Administration Lorazepam 2 mg 05/31/18 08:39 06/16/18 01:57 Ativan IV 2 mg Q1H PRN Administration CIWA-Ar 8-15 Lorazepam 4 mg 05/31/18 08:39 06/08/18 20:53 Ativan IV 4 mg Q1H PRN Administration CIWA-Ar 16-25 Lorazepam 4 mg 05/31/18 08:39 06/05/18 20:00 Ativan IV 4 mg Q15MIN PRN Administration CIWA-Ar >25 Metoprolol Tartrate 12.5 mg 06/10/18 00:00 Lopressor PO Q6H PRN HR>125 Prednisone 30 mg 06/13/18 10:00 06/18/18 10:55 Deltasone PO 30 mg QDAY DOMINICK Administration Simple Syrup 15 ml 05/28/18 22:45 06/06/18 12:00 Simple Syrup FEEDTUBE 15 ml PRN PRN Administration Hypoglycemia Simple Syrup 30 ml 05/28/18 22:45 Simple Syrup FEEDTUBE PRN PRN Hypoglycemia Sodium Bicarbonate 325 mg 05/28/18 22:45 06/07/18 23:48 Sodium Bicarbonate FEEDTUBE 325 mg PRN PRN Administration For Clogged Feeding Tube Sodium Chloride 10 ml 05/29/18 10:00 06/17/18 21:12 Sodium Chloride Flush Syringe 10 Ml IV 10 ml BID DOMINICK Administration Sodium Chloride 10 ml 05/28/18 22:45 06/06/18 05:50 Sodium Chloride Flush Syringe 10 Ml IV 10 ml PRN PRN Administration LINE FLUSH Venlafaxine HCl 100 mg 06/13/18 12:00 06/18/18 07:59 Effexor PO 100 mg TIDWM DMOINICK Administration Nutrition/Malnutrition Assess - Dietary Evaluation Nutrition/Malnutrition Findings: Nutrition Notes Start: 05/29/18 09:32 Freq: Status: Active Protocol: Document 06/16/18 10:43 CP (Rec: 06/16/18 10:46 CP [id number]) Co-Sign 06/16/18 10:43 LP Nutrition Notes Initial or Follow up Reassessment Current Diagnosis COPD,Hypertension,Respiratory Failure Other Pertinent Diagnosis Septic shock,Suspected PNA, COPD exacerbation, End-stage lung Dz Current Diet [facility] soft Labs/Tests Reviewed Pertinent Medications Reviewed Height 5 ft Weight 76.4 kg [place] Body Weight (kg) 45.45 BMI 32.8 Weight Status Obese Subjective/Other Information Pt reported that she had "no appetite" and ate 20% of her tray. She stated that she has been consuming her ONS, but did not want more. Pt stated that she likes dessert, cereal , and soups as noted in her food preferences. Percent of energy/protein needs met: 28%/23% Burn Absent Trauma Absent #1 Nutrition Diagnosis Inadequate oral intake Diagnosis Progress(for reassessment Continues documentation) Is patient on ventilator? No Is Patient Ambulatory and/or Out of Bed No REE-([facility]-confined to bed) [phone] Calculation Used for Recommendations [facility] Additional Notes Protein Needs: 49-61g (0.8-1g/ kg, 61 kg adjBW) Fluid Needs: 1 ml/kcal Fluid needs 1ml/kcal Nutrition Intervention Change Diet Order: Continue current Add Supplement/Snack (indicate name/kcal Ensure Enlive [place] or /protein ) Chocolate BID Provides kCal: 700 Provides Protein (gm) 40 Goal #1 Meet at least 75% of kcal and pro needs via PO and ONS intake Anticipated Discharge Needs: mechanical soft diet Follow-Up By: 06/19/18 Additional Comments Follow for PO and ONS intake
[2018-06-18] MEDS: DUONEB *Not for PRN Use IH SCH ×2 (12:12→19:59)
[2018-06-18] MEDS: BROVANA NEBU IH SCH ×2 (12:12→19:59)
[2018-06-18] MEDS: PULMICORT IH SCH ×2 (12:13→19:59)
[2018-06-18] MEDS: SODIUM CHLORIDE FLUSH SYRINGE 10 ML IV SCH ×2 (13:11→21:17)
--- NOTE | 2018-06-18 14:57 | Progress Note ---
Assessment and Plan Septic Shock suspected LLL pneumonia, SOFA score >2 Acute on chronic combined( hypoxic-hypercapnic) respiratory failure s/p ETT MVS Severe AE COPD AMS with Acute encephalopathy Macrocytosis GNR pneumonia, probably secondary to aspiration Acute encephalaopthy( toxic, metabolic) History of substance abuse - continue BIPAP qhs with prn daytime use - continue scheduled duonebs bid - continue systemic steroids with slow taper (on prednisone now) - continue brovana & pulmicort - PT/OT to increase ambulation - bilateral lower extremity dopplers negative for DVT - continue to wean supplemental oxygen to keep O2 sats 90% - tapered off seroquel - prn ABGs/CXR at this point - s/p empiric antibiotics for aspiration PNA - continue Stress ulcer prophylaxis - continue VTE prophylaxis - resume chronic home medications per attending - continue accuchecks with glycemic control for target glucose of 140-180 mg/dL - Continue bronchodilators with pulmonary hygiene per RT - continue maintenance of sleep -wake cycle - continue mobility as tolerated by hemodynamics - Influenza and pneumonia vaccination addressed per protocol ... awaiting placement PROGNOSIS guarded to fair CODE STATUS: FULL CODE Subjective Date of service: 06/18/18 Principal diagnosis: Septic Shock (? LLL pneumonia); Ac on Ch hypoxic- hypercapnic Resp failure Interval history: Patient is seen today for: Septic Shock suspected LLL pneumonia, SOFA score > 2; Acute on chronic combined( hypoxic-hypercapnic) respiratory failure s/p ETT MVS; Severe AE COPD; AMS with Acute encephalopathy; Macrocytosis Seen and examined at bedside; 24hour events reviewed; nursing and respiratory care staff consulted; no adverse overnight events reported to me; sitting in bed; less SOB; off BIPAP; denies acute chest pains or palpitations; No N/V/F/C Objective Vital Signs - 12hr 06/18/18 06/18/18 06/18/18 06:03 12:02 12:16 Temperature 98.4 F 97.8 F Pulse Rate 84 82 Pulse Rate [ 83 Anterior Bilateral Throughout] Respiratory 20 21 Rate Respiratory 16 Rate [Anterior Bilateral Throughout] Blood Pressure 126/60 117/43 O2 Sat by Pulse 93 97 Oximetry 06/18/18 12:24 Temperature Pulse Rate Pulse Rate [ Anterior Bilateral Throughout] Respiratory Rate Respiratory Rate [Anterior Bilateral Throughout] Blood Pressure O2 Sat by Pulse 95 Oximetry Constitutional: appears uncomfortable, other (elderly chronically ill looking CF; normocephalic and with mild patient-vent dyssynchrony) Eyes: non-icteric ENT: oropharynx moist, other (extubated) Neck: supple, no lymphadenopathy, no JVD, other (large neck circumference) Effort: mildly labored Ascultation: Bilateral: diminished breath sounds, rhonchi, other (prolonged exp phase) Percussion: Bilateral: not dull Cardiovascular: regular rate and rhythm Gastrointestinal: normoactive bowel sounds, soft, non-tender, non-distended Integumentary: normal Extremities: no cyanosis, no edema, pink and warm, pulses normal Neurologic: non-focal exam (grossly), pupils equal and round, CN II-XII normal, motor strength normal and Psychiatric: mood appropriate, affect normal CBC and BMP: 06/18/18 05:01 06/18/18 05:01 ABG, PT/INR, D-dimer: ABG POC ABG pH 7.384 (7.35-7.45) 06/05/18 04:10 POC ABG pCO2 56.3 (35-45) H 06/05/18 04:10 POC ABG pO2 61 (80-105) L 06/05/18 04:10 POC ABG HCO3 33.6 (22-26 mml/L) 06/05/18 04:10 POC ABG Total CO2 35 (23-27mmol/L) 06/05/18 04:10 POC ABG O2 Sat 90 06/05/18 04:10 PT/INR, D-dimer D-Dimer 1062.49 ng/mlDDU (0-234) H 05/28/18 13:13 Abnormal lab findings: Abnormal Labs 05/28/18 05/28/18 05/28/18 13:13 13:13 13:13 WBC Hgb 9.7 L MCV 77 L MCH 23 L MCHC 29 L RDW 19.2 H Plt Count Lymph % (Auto) 8.5 L [place] % (Auto) 11.3 H Lymph # 0.8 L [place] # 1.1 H Seg Neutrophils % 79.8 H Seg Neuts % (Manual) Lymphocytes % (Manual) Nucleated RBC % Seg Neutrophils # Seg Neutrophils # Man Lymphocytes # (Manual) D-Dimer 1062.49 H POC ABG pH POC ABG pCO2 POC ABG pO2 Sodium Potassium Chloride Carbon Dioxide BUN 24 H Creatinine 0.6 L Glucose POC Glucose Calcium Magnesium Total Protein Albumin 3.5 L Triglycerides Ur Specific [place] 05/28/18 05/28/18 05/28/18 13:22 14:50 16:05 WBC Hgb MCV MCH MCHC RDW Plt Count Lymph % (Auto) [place] % (Auto) Lymph # [place] # Seg Neutrophils % Seg Neuts % (Manual) Lymphocytes % (Manual) Nucleated RBC % Seg Neutrophils # Seg Neutrophils # Man Lymphocytes # (Manual) D-Dimer POC ABG pH 7.249 L 7.126 L POC ABG pCO2 68.9 H POC ABG pO2 77 L Sodium Potassium Chloride 109.1 H Carbon Dioxide BUN 22 H Creatinine 0.5 L Glucose POC Glucose Calcium 7.5 L Magnesium Total Protein Albumin Triglycerides Ur Specific [place] 05/28/18 05/28/18 05/28/18 17:57 18:48 22:47 WBC Hgb MCV MCH MCHC RDW Plt Count Lymph % (Auto) [place] % (Auto) Lymph # [place] # Seg Neutrophils % Seg Neuts % (Manual) Lymphocytes % (Manual) Nucleated RBC % Seg Neutrophils # Seg Neutrophils # Man Lymphocytes # (Manual) D-Dimer POC ABG pH 7.195 L 7.312 L POC ABG pCO2 57.5 H POC ABG pO2 57 L 73 L Sodium Potassium Chloride Carbon Dioxide BUN Creatinine Glucose POC Glucose Calcium Magnesium Total Protein Albumin Triglycerides Ur Specific [place] > 1.030 H 05/30/18 05/30/18 05/31/18 06:10 10:42 04:23 WBC Hgb MCV MCH MCHC RDW Plt Count Lymph % (Auto) [place] % (Auto) Lymph # [place] # Seg Neutrophils % Seg Neuts % (Manual) Lymphocytes % (Manual) Nucleated RBC % Seg Neutrophils # Seg Neutrophils # Man Lymphocytes # (Manual) D-Dimer POC ABG pH 7.214 L 7.253 L POC ABG pCO2 64.5 H 56.4 H POC ABG pO2 78 L 74 L Sodium Potassium Chloride Carbon Dioxide BUN Creatinine Glucose POC Glucose Calcium Magnesium Total Protein Albumin Triglycerides Ur Specific [place] 05/31/18 05/31/18 05/31/18 06:30 08:50 08:50 WBC Hgb 9.3 L MCV 78 L MCH 23 L MCHC 29 L RDW 19.8 H Plt Count 131 L Lymph % (Auto) [place] % (Auto) Lymph # [place] # Seg Neutrophils % Seg Neuts % (Manual) 98.0 H Lymphocytes % (Manual) 2.0 L Nucleated RBC % 1.0 H Seg Neutrophils # Seg Neutrophils # Man 8.4 H Lymphocytes # (Manual) 0.2 L D-Dimer POC ABG pH POC ABG pCO2 POC ABG pO2 Sodium 153 H D Potassium Chloride 117.4 H Carbon Dioxide BUN 18 H Creatinine 0.4 L Glucose 159 H POC Glucose 146 H Calcium 8.3 L Magnesium Total Protein Albumin Triglycerides Ur Specific [place] 06/01/18 06/01/18 06/01/18 00:11 03:32 05:50 WBC Hgb 9.8 L MCV 77 L MCH 23 L MCHC 29 L RDW 20.1 H Plt Count 122 L Lymph % (Auto) [place] % (Auto) Lymph # [place] # Seg Neutrophils % Seg Neuts % (Manual) Lymphocytes % (Manual) Nucleated RBC % Seg Neutrophils # Seg Neutrophils # Man Lymphocytes # (Manual) D-Dimer POC ABG pH 7.465 H POC ABG pCO2 POC ABG pO2 Sodium Potassium Chloride Carbon Dioxide BUN Creatinine Glucose POC Glucose 149 H Calcium Magnesium Total Protein Albumin Triglycerides Ur Specific [place] 06/01/18 06/01/18 06/01/18 05:50 05:50 05:51 WBC Hgb MCV MCH MCHC RDW Plt Count Lymph % (Auto) [place] % (Auto) Lymph # [place] # Seg Neutrophils % Seg Neuts % (Manual) Lymphocytes % (Manual) Nucleated RBC % Seg Neutrophils # Seg Neutrophils # Man Lymphocytes # (Manual) D-Dimer POC ABG pH POC ABG pCO2 POC ABG pO2 Sodium 152 H Potassium Chloride 113.7 H Carbon Dioxide BUN 18 H Creatinine 0.3 L Glucose 146 H POC Glucose 146 H Calcium Magnesium 2.40 H Total Protein Albumin Triglycerides 214 H Ur Specific [place] 06/01/18 06/01/18 06/01/18 10:40 11:52 12:06 WBC Hgb MCV MCH MCHC RDW Plt Count Lymph % (Auto) [place] % (Auto) Lymph # [place] # Seg Neutrophils % Seg Neuts % (Manual) Lymphocytes % (Manual) Nucleated RBC % Seg Neutrophils # Seg Neutrophils # Man Lymphocytes # (Manual) D-Dimer POC ABG pH POC ABG pCO2 48.4 H POC ABG pO2 Sodium Potassium Chloride Carbon Dioxide BUN Creatinine Glucose POC Glucose 147 H 138 H Calcium Magnesium Total Protein Albumin Triglycerides Ur Specific [place] 06/01/18 06/02/18 06/02/18 18:08 00:39 04:11 WBC Hgb MCV MCH MCHC RDW Plt Count Lymph % (Auto) [place] % (Auto) Lymph # [place] # Seg Neutrophils % Seg Neuts % (Manual) Lymphocytes % (Manual) Nucleated RBC % Seg Neutrophils # Seg Neutrophils # Man Lymphocytes # (Manual) D-Dimer POC ABG pH POC ABG pCO2 50.3 H POC ABG pO2 72 L Sodium Potassium Chloride Carbon Dioxide BUN Creatinine Glucose POC Glucose 156 H 156 H Calcium Magnesium Total Protein Albumin Triglycerides Ur Specific [place] 06/02/18 06/02/18 06/02/18 05:16 07:47 07:47 WBC Hgb 10.0 L MCV 77 L MCH 23 L MCHC 29 L RDW 18.8 H Plt Count 103 L Lymph % (Auto) [place] % (Auto) Lymph # [place] # Seg Neutrophils % Seg Neuts % (Manual) Lymphocytes % (Manual) Nucleated RBC % Seg Neutrophils # Seg Neutrophils # Man Lymphocytes # (Manual) D-Dimer POC ABG pH POC ABG pCO2 POC ABG pO2 Sodium 148 H Potassium Chloride 109.4 H Carbon Dioxide 32 H BUN 21 H Creatinine 0.3 L Glucose 137 H POC Glucose 150 H Calcium Magnesium Total Protein Albumin Triglycerides Ur Specific [place] 06/02/18 06/02/18 06/02/18 11:46 17:51 19:58 WBC Hgb MCV MCH MCHC RDW Plt Count Lymph % (Auto) [place] % (Auto) Lymph # [place] # Seg Neutrophils % Seg Neuts % (Manual) Lymphocytes % (Manual) Nucleated RBC % Seg Neutrophils # Seg Neutrophils # Man Lymphocytes # (Manual) D-Dimer POC ABG pH POC ABG pCO2 POC ABG pO2 Sodium Potassium Chloride Carbon Dioxide BUN Creatinine Glucose POC Glucose 150 H 135 H 131 H Calcium Magnesium Total Protein Albumin Triglycerides Ur Specific [place] 06/03/18 06/03/18 06/03/18 04:28 04:59 04:59 WBC Hgb MCV 76 L MCH 23 L MCHC RDW 19.1 H Plt Count 99 L Lymph % (Auto) [place] % (Auto) Lymph # [place] # Seg Neutrophils % Seg Neuts % (Manual) Lymphocytes % (Manual) Nucleated RBC % Seg Neutrophils # Seg Neutrophils # Man Lymphocytes # (Manual) D-Dimer POC ABG pH POC ABG pCO2 50.4 H POC ABG pO2 65 L Sodium Potassium Chloride Carbon Dioxide BUN 23 H Creatinine 0.3 L Glucose 167 H POC Glucose Calcium Magnesium Total Protein Albumin Triglycerides Ur Specific [place] 06/03/18 06/03/18 06/03/18 05:17 12:20 17:28 WBC Hgb MCV MCH MCHC RDW Plt Count Lymph % (Auto) [place] % (Auto) Lymph # [place] # Seg Neutrophils % Seg Neuts % (Manual) Lymphocytes % (Manual) Nucleated RBC % Seg Neutrophils # Seg Neutrophils # Man Lymphocytes # (Manual) D-Dimer POC ABG pH POC ABG pCO2 POC ABG pO2 Sodium Potassium Chloride Carbon Dioxide BUN Creatinine Glucose POC Glucose 153 H 155 H 135 H Calcium Magnesium Total Protein Albumin Triglycerides Ur Specific [place] 06/03/18 06/04/18 06/04/18 23:23 04:37 05:15 WBC Hgb MCV MCH MCHC RDW Plt Count Lymph % (Auto) [place] % (Auto) Lymph # [place] # Seg Neutrophils % Seg Neuts % (Manual) Lymphocytes % (Manual) Nucleated RBC % Seg Neutrophils # Seg Neutrophils # Man Lymphocytes # (Manual) D-Dimer POC ABG pH POC ABG pCO2 51.3 H POC ABG pO2 79 L Sodium Potassium Chloride Carbon Dioxide BUN Creatinine Glucose POC Glucose 145 H 140 H Calcium Magnesium Total Protein Albumin Triglycerides Ur Specific [place] 06/04/18 06/04/18 06/05/18 11:47 17:22 01:13 WBC Hgb MCV MCH MCHC RDW Plt Count Lymph % (Auto) [place] % (Auto) Lymph # [place] # Seg Neutrophils % Seg Neuts % (Manual) Lymphocytes % (Manual) Nucleated RBC % Seg Neutrophils # Seg Neutrophils # Man Lymphocytes # (Manual) D-Dimer POC ABG pH POC ABG pCO2 POC ABG pO2 Sodium Potassium Chloride Carbon Dioxide BUN Creatinine Glucose POC Glucose 158 H 131 H 137 H Calcium Magnesium Total Protein Albumin Triglycerides Ur Specific [place] 06/05/18 06/05/18 06/05/18 04:10 06:33 11:41 WBC Hgb MCV MCH MCHC RDW Plt Count Lymph % (Auto) [place] % (Auto) Lymph # [place] # Seg Neutrophils % Seg Neuts % (Manual) Lymphocytes % (Manual) Nucleated RBC % Seg Neutrophils # Seg Neutrophils # Man Lymphocytes # (Manual) D-Dimer POC ABG pH POC ABG pCO2 56.3 H POC ABG pO2 61 L Sodium Potassium Chloride Carbon Dioxide BUN Creatinine Glucose POC Glucose 136 H 150 H Calcium Magnesium Total Protein Albumin Triglycerides Ur Specific [place] 06/05/18 06/05/18 06/05/18 15:27 19:49 22:44 WBC Hgb MCV MCH MCHC RDW Plt Count Lymph % (Auto) [place] % (Auto) Lymph # [place] # Seg Neutrophils % Seg Neuts % (Manual) Lymphocytes % (Manual) Nucleated RBC % Seg Neutrophils # Seg Neutrophils # Man Lymphocytes # (Manual) D-Dimer POC ABG pH POC ABG pCO2 POC ABG pO2 Sodium Potassium Chloride Carbon Dioxide 36 H D BUN 25 H Creatinine 0.4 L Glucose 130 H POC Glucose 125 H 137 H Calcium Magnesium Total Protein Albumin Triglycerides Ur Specific [place] 06/06/18 06/07/18 06/07/18 12:51 18:24 23:45 WBC Hgb MCV MCH MCHC RDW Plt Count Lymph % (Auto) [place] % (Auto) Lymph # [place] # Seg Neutrophils % Seg Neuts % (Manual) Lymphocytes % (Manual) Nucleated RBC % Seg Neutrophils # Seg Neutrophils # Man Lymphocytes # (Manual) D-Dimer POC ABG pH POC ABG pCO2 POC ABG pO2 Sodium Potassium Chloride Carbon Dioxide BUN Creatinine Glucose POC Glucose 66 L 139 H 130 H Calcium Magnesium Total Protein Albumin Triglycerides Ur Specific [place] 06/08/18 06/08/18 06/08/18 03:37 03:37 06:24 WBC Hgb MCV 76 L MCH 24 L MCHC RDW 19.8 H Plt Count 103 L Lymph % (Auto) [place] % (Auto) Lymph # [place] # Seg Neutrophils % Seg Neuts % (Manual) Lymphocytes % (Manual) Nucleated RBC % Seg Neutrophils # Seg Neutrophils # Man Lymphocytes # (Manual) D-Dimer POC ABG pH POC ABG pCO2 POC ABG pO2 Sodium Potassium Chloride Carbon Dioxide BUN Creatinine 0.2 L Glucose 123 H POC Glucose 119 H Calcium 8.3 L Magnesium Total Protein Albumin Triglycerides Ur Specific [place] 06/08/18 06/09/18 06/10/18 23:26 16:38 00:39 WBC Hgb MCV MCH MCHC RDW Plt Count Lymph % (Auto) [place] % (Auto) Lymph # [place] # Seg Neutrophils % Seg Neuts % (Manual) Lymphocytes % (Manual) Nucleated RBC % Seg Neutrophils # Seg Neutrophils # Man Lymphocytes # (Manual) D-Dimer POC ABG pH POC ABG pCO2 POC ABG pO2 Sodium Potassium Chloride Carbon Dioxide BUN Creatinine Glucose POC Glucose 106 H 109 H 114 H Calcium Magnesium Total Protein Albumin Triglycerides Ur Specific [place] 06/10/18 06/10/18 06/11/18 09:47 09:47 00:05 WBC 16.9 H Hgb MCV 78 L MCH 23 L MCHC RDW 20.0 H Plt Count Lymph % (Auto) 9.1 L [place] % (Auto) 8.5 H Lymph # [place] # 1.4 H Seg Neutrophils % 81.8 H Seg Neuts % (Manual) Lymphocytes % (Manual) Nucleated RBC % Seg Neutrophils # 13.9 H Seg Neutrophils # Man Lymphocytes # (Manual) D-Dimer POC ABG pH POC ABG pCO2 POC ABG pO2 Sodium Potassium Chloride Carbon Dioxide BUN Creatinine 0.3 L Glucose 110 H POC Glucose 110 H Calcium Magnesium Total Protein 5.9 L Albumin 3.5 L Triglycerides Ur Specific [place] 06/11/18 06/11/18 06/12/18 06:08 06:08 00:19 WBC 15.7 H 20.3 H Hgb MCV 77 L 77 L MCH 24 L 23 L MCHC RDW 20.3 H 20.7 H Plt Count Lymph % (Auto) 8.9 L [place] % (Auto) Lymph # [place] # 1.0 H Seg Neutrophils % 83.7 H Seg Neuts % (Manual) 93.0 H Lymphocytes % (Manual) 4.0 L Nucleated RBC % Seg Neutrophils # 13.2 H Seg Neutrophils # Man 18.9 H Lymphocytes # (Manual) 0.8 L D-Dimer POC ABG pH POC ABG pCO2 POC ABG pO2 Sodium Potassium 3.3 L Chloride Carbon Dioxide BUN Creatinine 0.4 L Glucose POC Glucose Calcium Magnesium Total Protein Albumin Triglycerides Ur Specific [place] 06/13/18 06/13/18 06/15/18 05:00 05:00 05:40 WBC 18.0 H Hgb 10.0 L MCV 78 L 78 L MCH 23 L 24 L MCHC RDW 21.8 H 22.6 H Plt Count 116 L Lymph % (Auto) 7.2 L [place] % (Auto) 7.7 H Lymph # [place] # 1.1 H Seg Neutrophils % 86.3 H 72.5 H Seg Neuts % (Manual) Lymphocytes % (Manual) Nucleated RBC % Seg Neutrophils # 15.6 H Seg Neutrophils # Man Lymphocytes # (Manual) D-Dimer POC ABG pH POC ABG pCO2 POC ABG pO2 Sodium Potassium 3.5 L Chloride Carbon Dioxide BUN 20 H Creatinine 0.5 L Glucose 138 H POC Glucose Calcium Magnesium Total Protein Albumin Triglycerides Ur Specific [place] 06/15/18 06/18/18 06/18/18 05:40 05:01 05:01 WBC Hgb MCV MCH 25 L MCHC RDW 23.2 H Plt Count 120 L Lymph % (Auto) [place] % (Auto) Lymph # [place] # Seg Neutrophils % Seg Neuts % (Manual) Lymphocytes % (Manual) Nucleated RBC % Seg Neutrophils # Seg Neutrophils # Man Lymphocytes # (Manual) D-Dimer POC ABG pH POC ABG pCO2 POC ABG pO2 Sodium Potassium Chloride Carbon Dioxide BUN Creatinine 0.4 L 0.4 L Glucose POC Glucose Calcium Magnesium Total Protein 5.8 L Albumin 3.6 L Triglycerides Ur Specific [place] Allied health notes reviewed: nursing
[2018-06-18] MEDS: ARIXTRA SUB-Q SCH (22:36)
[2018-06-19] MEDS: PULMICORT IH SCH ×2 (08:05→20:36)
[2018-06-19] MEDS: DUONEB *Not for PRN Use IH SCH ×2 (08:05→20:36)
[2018-06-19] MEDS: BROVANA NEBU IH SCH ×2 (08:05→20:36)
[2018-06-19] MEDS: BUSPAR PO SCH ×2 (09:12→21:34)
[2018-06-19] MEDS: EFFEXOR PO SCH ×3 (09:12→17:41)
[2018-06-19] MEDS: DELTASONE PO SCH (09:13)
[2018-06-19] MEDS: LIORESAL PO SCH ×2 (09:13→21:34)
[2018-06-19] MEDS: PREVACID SOLUTAB FEEDTUBE SCH (09:13)
[2018-06-19] MEDS: NORCO 5/325 PO PRN ×3 (09:13→18:18)
[2018-06-19] MEDS: SODIUM CHLORIDE FLUSH SYRINGE 10 ML IV SCH ×2 (09:14→21:34)
--- NOTE | 2018-06-19 11:06 | Progress Note ---
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 According to chart, pt has not been using her O2 and started hallucinating. She was intubated in the ED. She was also hypotensive in the ED and started on Vasopressor/Levophed * CTA chest IMPRESSION: 1. Study degraded by artifact created by retained hardware in the thoracic spine and by motion artifact. 2. No evidence of central pulmonary artery emboli. However, segmental pulmonary artery emboli could be missed or overcalled due to significant artifact. 3. Complete consolidation left lower lobe with air bronchograms and volume loss consistent with atelectasis. There appears to be opacification of a portion of the left lower lobe bronchus. 4. Tip of the endotracheal tube projected in satisfactory position. 5. Cardiomegaly. 6. IVC filter. 7. Prominent kyphosis of the thoracic spine with extensive instrumentation with retained hardware. * Abdominal 1 view XRAY IMPRESSION: Nasogastric tube is terminating in the stomach. Mild degree left pleural effusion * pCXR FINDINGS: Heart: Prominent cardiac silhouette. Mediastinum/Vessels: Prominent central vessels. Lungs/Pleural space: Left lung base airspace consolidation. Bony thorax: No acute osseous abnormality. Life support devices: The endotracheal tube tip is obscured by hardware in the thoracic spine, but likely projects approximately 4 cm superior to the carlos manuel. IMPRESSION: Prominent cardiac silhouette. 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 coli has not resistant, changed antibiotics to Levaquin and Gentamicin on Friday. ID may stop the iv Gent today. OFF Vasopressor since Friday -DVT prophylaxis: sq Lovenox -Disposition: awaiting SNF placement full code History Interval history: Patient was seen and examined. Follow-up on current diagnosis of respiratory failure, extubated on Medical floor. Imaging, nursing note, chart, labs and old chart reviewed. Hospitalist Physical - Physical exam Narrative exam: Gen: WDWN, NAD, Awake, Alert, Orientated HEENT: NCAT, EOMI, PERRL, OP Clear Neck: supple, no adenopathy, no thyromegaly, no JVD CVS/Heart: RRR, normal S1S2, pulses present bilaterally Chest/Lungs: diminished bs bilateral, Symmetrical chest expansion, good air entry bilaterally GI/Abdomen: soft, NTND, good bowel sounds, no guarding or rebound /Bladder: no suprapubic tenderness, no CVA or paraspinal tenderness Extermity/Skin: no c/c/e, no obvious rash MSK: FROM x 4 Neuro: CN 2-12 grossly intact, no new focal deficits Psych: calm - Constitutional Vitals: Temp Pulse Resp BP Pulse Ox 98.0 F 108 H 20 122/64 96 06/19/18 06:10 06/19/18 08:05 06/19/18 08:05 06/19/18 06:10 06/19/18 08:05 General appearance: Present: no acute distress, well-nourished, obese. Absent: other (on Ventimask) Results - Labs CBC & Chem 7: 06/18/18 05:01 06/18/18 05:01 Labs: Laboratory Last Values WBC 9.6 K/mm3 (4.5-11.0) 06/18/18 05:01 RBC 4.27 M/mm3 (3.65-5.03) 06/18/18 05:01 Hgb 10.5 gm/dl (10.1-14.3) 06/18/18 05:01 Hct 33.6 % (30.3-42.9) 06/18/18 05:01 MCV 79 fl (79-97) 06/18/18 05:01 MCH 25 pg (28-32) L 06/18/18 05:01 MCHC 31 % (30-34) 06/18/18 05:01 RDW 23.2 % (13.2-15.2) H 06/18/18 05:01 Plt Count 120 K/mm3 (140-440) L 06/18/18 05:01 Lymph % (Auto) 18.4 % (13.4-35.0) 06/15/18 05:40 [place] % (Auto) 7.7 % (0.0-7.3) H 06/15/18 05:40 Eos % (Auto) 1.2 % (0.0-4.3) 06/15/18 05:40 Baso % (Auto) 0.2 % (0.0-1.8) 06/15/18 05:40 Lymph # 1.5 K/mm3 (1.2-5.4) 06/15/18 05:40 [place] # 0.6 K/mm3 (0.0-0.8) 06/15/18 05:40 Eos # 0.1 K/mm3 (0.0-0.4) 06/15/18 05:40 Baso # 0.0 K/mm3 (0.0-0.1) 06/15/18 05:40 Add Manual Diff Complete 06/12/18 00:19 Total Counted 100 06/12/18 00:19 Seg Neutrophils % 72.5 % (40.0-70.0) H 06/15/18 05:40 Seg Neuts % (Manual) 93.0 % (40.0-70.0) H 06/12/18 00:19 Band Neutrophils % 0 % 06/12/18 00:19 Lymphocytes % (Manual) 4.0 % (13.4-35.0) L 06/12/18 00:19 Reactive Lymphs % (Man) 0 % 06/12/18 00:19 Monocytes % (Manual) 3.0 % (0.0-7.3) 06/12/18 00:19 Eosinophils % (Manual) 0 % (0.0-4.3) 06/12/18 00:19 Basophils % (Manual) 0 % (0.0-1.8) 06/12/18 00:19 Metamyelocytes % 0 % 06/12/18 00:19 Myelocytes % 0 % 06/12/18 00:19 Promyelocytes % 0 % 06/12/18 00:19 Blast Cells % 0 % 06/12/18 00:19 Nucleated RBC % Not Reportable 06/12/18 00:19 Seg Neutrophils # 6.0 K/mm3 (1.8-7.7) 06/15/18 05:40 Seg Neutrophils # Man 18.9 K/mm3 (1.8-7.7) H 06/12/18 00:19 Band Neutrophils # 0.0 K/mm3 06/12/18 00:19 Lymphocytes # (Manual) 0.8 K/mm3 (1.2-5.4) L 06/12/18 00:19 Abs React Lymphs (Man) 0.0 K/mm3 06/12/18 00:19 Monocytes # (Manual) 0.6 K/mm3 (0.0-0.8) 06/12/18 00:19 Eosinophils # (Manual) 0.0 K/mm3 (0.0-0.4) 06/12/18 00:19 Basophils # (Manual) 0.0 K/mm3 (0.0-0.1) 06/12/18 00:19 Metamyelocytes # 0.0 K/mm3 06/12/18 00:19 Myelocytes # 0.0 K/mm3 06/12/18 00:19 Promyelocytes # 0.0 K/mm3 06/12/18 00:19 Blast Cells # 0.0 K/mm3 06/12/18 00:19 WBC Morphology Not Reportable 06/12/18 00:19 Hypersegmented Neuts Not Reportable 06/12/18 00:19 Hyposegmented Neuts Not Reportable 06/12/18 00:19 Hypogranular Neuts Not Reportable 06/12/18 00:19 Smudge Cells Not Reportable 06/12/18 00:19 Toxic Granulation Not Reportable 06/12/18 00:19 Toxic Vacuolation Not Reportable 06/12/18 00:19 Dohle Bodies Not Reportable 06/12/18 00:19 Pelger-Huet Anomaly Not Reportable 06/12/18 00:19 Neha Rods Not Reportable 06/12/18 00:19 Platelet Estimate Consistent w auto 06/12/18 00:19 Clumped Platelets Not Reportable 06/12/18 00:19 Plt Clumps, EDTA Not Reportable 06/12/18 00:19 Large Platelets Not Reportable 06/12/18 00:19 Giant Platelets Not Reportable 06/12/18 00:19 Platelet Satelliting Not Reportable 06/12/18 00:19 Plt Morphology Comment Not Reportable 06/12/18 00:19 RBC Morphology Not Reportable 06/12/18 00:19 Dimorphic RBCs Not Reportable 06/12/18 00:19 Polychromasia Not Reportable 06/12/18 00:19 Hypochromasia 1+ 06/12/18 00:19 Poikilocytosis Not Reportable 06/12/18 00:19 Anisocytosis 1+ 06/12/18 00:19 Microcytosis Not Reportable 06/12/18 00:19 Macrocytosis Not Reportable 06/12/18 00:19 Spherocytes Not Reportable 06/12/18 00:19 Pappenheimer Bodies Not Reportable 06/12/18 00:19 Sickle Cells Not Reportable 06/12/18 00:19 Target Cells Not Reportable 06/12/18 00:19 Tear Drop Cells Not Reportable 06/12/18 00:19 Ovalocytes Few 06/12/18 00:19 Stomatocytes Rare 05/31/18 08:50 Helmet Cells Not Reportable 06/12/18 00:19 [place] Bodies Not Reportable 06/12/18 00:19 [place] Rings Not Reportable 06/12/18 00:19 [place]ien Cells Not Reportable 06/12/18 00:19 Bite Cells Not Reportable 06/12/18 00:19 Crenated Cell Not Reportable 06/12/18 00:19 Elliptocytes Not Reportable 06/12/18 00:19 Acanthocytes (Spur) Not Reportable 06/12/18 00:19 Rouleaux Not Reportable 06/12/18 00:19 Hemoglobin C Crystals Not Reportable 06/12/18 00:19 Schistocytes Not Reportable 06/12/18 00:19 Malaria parasites Not Reportable 06/12/18 00:19 Hernan Bodies Not Reportable 06/12/18 00:19 Hem Pathologist Commnt No 06/12/18 00:19 D-Dimer 1062.49 ng/mlDDU (0-234) H 05/28/18 13:13 Heparin Anti-Xa, Unfract Negative (Negative) 06/03/18 10:55 POC ABG pH 7.384 (7.35-7.45) 06/05/18 04:10 POC ABG pCO2 56.3 (35-45) H 06/05/18 04:10 POC ABG pO2 61 (80-105) L 06/05/18 04:10 POC ABG HCO3 33.6 (22-26 mml/L) 06/05/18 04:10 POC ABG Total CO2 35 (23-27mmol/L) 06/05/18 04:10 POC ABG O2 Sat 90 06/05/18 04:10 POC ABG Base Excess 9 ((-2) - (+3)mmol/L) 06/05/18 04:10 FiO2 45 % 06/05/18 04:10 Sodium 138 mmol/L (137-145) 06/18/18 05:01 Potassium 4.1 mmol/L (3.6-5.0) 06/18/18 05:01 Chloride 99.1 mmol/L (98-107) 06/18/18 05:01 Carbon Dioxide 24 mmol/L (22-30) 06/18/18 05:01 Anion Gap 19 mmol/L 06/18/18 05:01 BUN 11 mg/dL (7-17) 06/18/18 05:01 Creatinine 0.4 mg/dL (0.7-1.2) L 06/18/18 05:01 Estimated GFR > 60 ml/min 06/18/18 05:01 BUN/Creatinine Ratio 28 % 06/18/18 05:01 Glucose 89 mg/dL (65-100) 06/18/18 05:01 POC Glucose 83 (70-105) 06/11/18 06:44 Lactic Acid 0.90 mmol/L (0.7-2.0) 05/28/18 14:50 Calcium 9.0 mg/dL (8.4-10.2) 06/18/18 05:01 Phosphorus 3.90 mg/dL (2.5-4.5) 06/15/18 05:40 Magnesium 2.20 mg/dL (1.7-2.3) 06/15/18 05:40 Total Bilirubin 0.50 mg/dL (0.1-1.2) 06/15/18 05:40 AST 16 units/L (5-40) 06/15/18 05:40 ALT 25 units/L (7-56) 06/15/18 05:40 Alkaline Phosphatase 55 units/L (35-129) 06/15/18 05:40 Troponin T < 0.010 ng/mL (0.00-0.029) 05/28/18 13:13 Total Protein 5.8 g/dL (6.3-8.2) L 06/15/18 05:40 Albumin 3.6 g/dL (3.9-5) L 06/15/18 05:40 Albumin/Globulin Ratio 1.6 % 06/15/18 05:40 Triglycerides 214 mg/dL (2-149) H 06/01/18 05:50 Serotonin Release Assay See scanned results 06/03/18 10:55 Urine Color Yellow (Yellow) 05/28/18 17:57 Urine Turbidity Clear (Clear) 05/28/18 17:57 Urine pH 6.0 (5.0-7.0) 05/28/18 17:57 Ur Specific [place] > 1.030 (1.003-1.030) H 05/28/18 17:57 Urine Protein 100 mg/dl mg/dL (Negative) 05/28/18 17:57 Urine Glucose (UA) Neg mg/dL (Negative) 05/28/18 17:57 Urine Ketones 20 mg/dL (Negative) 05/28/18 17:57 Urine Blood Sm (Negative) 05/28/18 17:57 Urine Nitrite Neg (Negative) 05/28/18 17:57 Urine Bilirubin Neg (Negative) 05/28/18 17:57 Urine Urobilinogen 2.0 mg/dL (<2.0) 05/28/18 17:57 Ur Leukocyte Esterase Neg (Negative) 05/28/18 17:57 Urine WBC (Auto) 1.0 /HPF (0.0-6.0) 05/28/18 17:57 Urine RBC (Auto) 2.0 /HPF (0.0-6.0) 05/28/18 17:57 U Epithel Cells (Auto) < 1.0 /HPF (0-13.0) 05/28/18 17:57 Urine Mucus Few /HPF 05/28/18 17:57 Random Gentamicin 0.4 ug/mL (0.0-10.0) 06/01/18 05:50 Vancomycin Trough 7.2 ug/mL (5.0-20.0) 05/31/18 09:39 Urine Opiates Screen Presumptive negative 05/29/18 23:50 Urine Methadone Screen Presumptive negative 05/29/18 23:50 Ur Barbiturates Screen Presumptive negative 05/29/18 23:50 Ur Phencyclidine Scrn Presumptive negative 05/29/18 23:50 Ur Amphetamines Screen Presumptive negative 05/29/18 23:50 U Benzodiazepines Scrn Presumptive negative 05/29/18 23:50 Urine Cocaine Screen Presumptive negative 05/29/18 23:50 U Marijuana (THC) Screen Presumptive negative 05/29/18 23:50 Drugs of Abuse Note Disclamer 05/29/18 23:50 Heparin-induced Plt Ab Negative (Negative) 06/03/18 10:55 UF Heparin High Dose 0 % Release 06/03/18 10:55 ESSIE UFH Low Dose 0.1 0 % Release 06/03/18 10:55 ESSIE UFH Low Dose 0.5 0 % Release 06/03/18 10:55 Active Medications - Current Medications Current Medications: Generic Name Dose Route Start Last Admin Trade Name Freq PRN Reason Stop Dose Admin Acetaminophen 650 mg 06/14/18 08:20 06/17/18 21:18 Tylenol PO 650 mg Q6H PRN Administration Pain, Mild (1-3) Acetaminophen/Hydrocodone Bitart 1 each 06/17/18 14:45 06/19/18 09:13 [place] 5/325 PO 1 each Q4H PRN Administration Pain, Moderate (4-6) Albuterol 2.5 mg 06/10/18 17:42 Proventil IH Q4HRT PRN Shortness Of Breath Albuterol/Ipratropium 1 ampul 06/04/18 20:00 06/19/18 08:05 Duoneb *Not For Prn Use* IH 1 ampul BIDRT DOMINICK Administration Alprazolam 0.25 mg 06/13/18 11:07 06/15/18 21:42 Xanax PO 0.25 mg Q8H PRN Administration Anxiety Arformoterol Tartrate 15 mcg 06/04/18 20:00 06/19/18 08:05 Brovana Nebu IH 15 mcg Q12HRT DOMINICK Administration Baclofen 10 mg 05/28/18 23:00 06/19/18 09:13 Lioresal PO 10 mg BID DOMINICK Administration Budesonide 0.5 mg 05/28/18 22:45 06/19/18 08:05 Pulmicort IH 0.5 mg Q12HRT DOMINICK Administration Buspirone HCl 5 mg 05/28/18 23:00 06/19/18 09:12 Buspar PO 5 mg BID DOMINICK Administration Fondaparinux 2.5 mg 06/09/18 22:00 06/18/18 22:36 Arixtra SUB-Q Not Given DAILY@2200 DOMINICK Lansoprazole 30 mg 05/30/18 10:00 06/19/18 09:13 Prevacid Solutab FEEDTUBE 30 mg QDAY DOMINICK Administration Lorazepam 2 mg 05/31/18 08:39 06/16/18 01:57 Ativan IV 2 mg Q1H PRN Administration CIWA-Ar 8-15 Lorazepam 4 mg 05/31/18 08:39 06/08/18 20:53 Ativan IV 4 mg Q1H PRN Administration CIWA-Ar 16-25 Lorazepam 4 mg 05/31/18 08:39 06/05/18 20:00 Ativan IV 4 mg Q15MIN PRN Administration CIWA-Ar >25 Metoprolol Tartrate 12.5 mg 06/10/18 00:00 Lopressor PO Q6H PRN HR>125 Prednisone 30 mg 06/13/18 10:00 06/19/18 09:13 Deltasone PO 30 mg QDAY DOMINICK Administration Simple Syrup 15 ml 05/28/18 22:45 06/06/18 12:00 Simple Syrup FEEDTUBE 15 ml PRN PRN Administration Hypoglycemia Simple Syrup 30 ml 05/28/18 22:45 Simple Syrup FEEDTUBE PRN PRN Hypoglycemia Sodium Bicarbonate 325 mg 05/28/18 22:45 06/07/18 23:48 Sodium Bicarbonate FEEDTUBE 325 mg PRN PRN Administration For Clogged Feeding Tube Sodium Chloride 10 ml 05/29/18 10:00 06/19/18 09:14 Sodium Chloride Flush Syringe 10 Ml IV 10 ml BID DOMINICK Administration Sodium Chloride 10 ml 05/28/18 22:45 04/20/19 05:50 Sodium Chloride Flush Syringe 10 Ml IV 10 ml PRN PRN Administration LINE FLUSH Venlafaxine HCl 100 mg 06/13/18 12:00 06/19/18 09:12 Effexor PO 100 mg TIDWM DOMINICK Administration Nutrition/Malnutrition Assess - Dietary Evaluation Nutrition/Malnutrition Findings: Nutrition Notes Start: 05/29/18 09:32 Freq: Status: Active Protocol: Document 06/19/18 08:20 CP (Rec: 06/19/18 08:24 CP [id number]) Co-Sign 06/19/18 08:20 LP Nutrition Notes Initial or Follow up Reassessment Current Diagnosis COPD,Hypertension,Respiratory Failure Other Pertinent Diagnosis Septic shock,Suspected PNA, COPD exacerbation, End-stage lung Dz [facility] Labs/Tests Reviewed Pertinent Medications Reviewed Height 5 ft Weight 77 kg [place] Body Weight (kg) 45.45 BMI 33.1 Weight Status Obese Subjective/Other Information Pt reported that her appetite is "good" and that she has been eating 100% of her meals. Percent of energy/protein needs met: 100%/100% Burn Absent Trauma Absent #1 Nutrition Diagnosis Inadequate oral intake As Evidenced by Signs and Symptoms Pt eating 100% of her meals Diagnosis Progress(for reassessment Resolved documentation) Is patient on ventilator? No Is Patient Ambulatory and/or Out of Bed No REE-([facility]-confined to bed) [phone] Calculation Used for Recommendations [facility] Additional Notes Protein Needs: 49-61g (0.8-1g/ kg, 61 kg adjBW) Fluid Needs: 1 ml/kcal Fluid needs 1ml/kcal Nutrition Intervention Change Diet Order: Continue current Add Supplement/Snack (indicate name/kcal Ensure Enlive [place] or /protein ) Chocolate BID Provides kCal: 700 Provides Protein (gm) 40 Revisit per MD consult or patient Sign Off request:
--- NOTE | 2018-06-19 11:21 | Discharge Summary ---
Providers - Providers Date of Admission: 05/28/18 19:14 Date of discharge: 06/19/18 Attending physician: MAXIMINO MCDANIEL 05/28/18 22:46 Consult to Dietitian/Nutrition [CONS] Routine Physician Instructions: Reason For Exam: Reason for Consult: Write/Manage Tube Feeding Consult to Dietitian/Nutrition [CONS] Routine Physician Instructions: Assess nutrtn needs, initiate, modify, manage TF Reason For Exam: Reason for Consult: Write/Manage Tube Feeding Reason for Consult: Write/Manage Tube Feeding 05/29/18 08:07 Consult to Physician [CONS] Routine Comment: Consulting Provider: JUN HUNTER Physician Instructions: Reason For Exam: LLL consolidation, Intubated 05/29/18 08:30 PICC Line Insertion [Consult to PICC Line RN] [CONS] Stat Reason For Exam: Levophed drip Type Line:: PICC 05/29/18 13:17 Consult to Physician [CONS] Urgent Comment: Consulting Provider: PARESH GAINES Physician Instructions: Reason For Exam: Acute respiratory Failure 06/08/18 10:12 Consult to Mental Health [CONS] Routine Reason For Exam: medication management Place consult to:: mental health Notified:: Juve Phone number called:: [phone] Was contact made?: Yes If yes, spoke with:: Juve Time called:: 07:47 Physical Therapy Evaluation and Treat [CONS] Routine Comment: Reason For Exam: debility 06/08/18 10:13 Occupational Therapy Evaluate and Treat [CONS] Routine Comment: Reason For Exam: deility 06/16/18 08:51 Occupational Therapy Evaluate and Treat [CONS] Routine Comment: Reason For Exam: fall Physical Therapy Evaluation and Treat [CONS] Routine Comment: Reason For Exam: Fall Mode of Transport?: Wheelchair Weight bearing status?: Partial wt bearing Primary care physician: FLORESITA MOSELEY Hospitalization Condition: Stable Hospital course: Patient is a 58 yo woman with a history of chronic hypoxic respiratory failure due to End stage COPD on home O2, CAD s/p PCI with bare metal stent, cps with recurrent admission for narcotic overdose, 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 According to chart, pt has not been using her O2 and started hallucinating. She was intubated in the ED. She was also hypotensive in the ED and started on Vasopressor/Levophed * CTA chest IMPRESSION: 1. Study degraded by artifact created by retained scott rdware in the thoracic spine and by motion artifact. 2. No evidence of central pulmonary artery emboli. However, segmental pulmonary artery emboli could be missed or overcalled due to significant artifact. 3. Complete consolidation left lower lobe with air bronchograms and volume loss consistent with atelectasis. There appears to be opacification of a portion of the left lower lobe bronchus. 4. Tip of the endotracheal tube projected in satisfactory position. 5. Cardiomegaly. 6. IVC filter. 7. Prominent kyphosis of the thoracic spine with extensive instrumentation with retained hardware. * Abdominal 1 view XRAY IMPRESSION: Nasogastric tube is terminating in the stomach. Mild degree left pleural effusion * pCXR FINDINGS: Heart: Prominent cardiac silhouette. Mediastinum/Vessels: Prominent central vessels. Lungs/Pleural space: Left lung base airspace consolidation. Bony thorax: No acute osseous abnormality. Life support devices: The endotracheal tube tip is obscured by hardware in the thoracic spine, but likely projects approximately 4 cm superior to the carlos manuel. IMPRESSION: Prominent cardiac silhouette. 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 coli has not resistant, changed antibiotics to Levaquin and Gentamicin on Friday. ID may stop the iv Gent today. OFF Vasopressor since Friday -DVT prophylaxis: sq Lovenox -Disposition: awaiting SNF placement full code Disposition: [id number] SNF W [facility] CERT Time spent for discharge: 36 minutes Core Measure Documentation - Palliative Care Palliative Care/ Comfort Measures: Not Applicable - Core Measures Any of the following diagnoses?: none - VTE Discharge Requirements Deep Vein Thrombosis/Pulmonary Embolism Present on Admission: No Has pt received <5 days of overlap therapy or INR<2.0: No Anticoagulant overlap therapy prescribed at discharge: No Contraindication No Overlap Therapy order at DC: Not Indicated Exam - Physical Exam Narrative exam: Gen: chronic disable, blue bloater appearance, NAD, Awake, Alert, Orientated HEENT: NCAT, EOMI, PERRL, OP Clear Neck: supple, no adenopathy, no thyromegaly, no JVD CVS/Heart: RRR, not tachy, HR 87 at 1121am, normal S1S2, pulses present bilaterally Chest/Lungs: diminished bs bilateral, Symmetrical chest expansion, good air entry bilaterally GI/Abdomen: soft, NTND, good bowel sounds, no guarding or rebound /Bladder: no suprapubic tenderness, no CVA or paraspinal tenderness Extermity/Skin: no c/c/e, no obvious rash MSK: FROM x 4 Neuro: CN 2-12 grossly intact, no new focal deficits Psych: calm - Constitutional Vitals: Temp Pulse Resp BP Pulse Ox 98.0 F 103 H 20 122/64 96 06/19/18 06:10 06/19/18 08:15 06/19/18 08:15 06/19/18 06:10 06/19/18 08:05 Plan Activity: other (no strenous activity) Diet: other (mechanical soft with Ensure shakes TID and prn) Follow up with: FLORESITA MOSELEY MD [Primary Care Provider] - 3-5 Days Prescriptions: HYDROcodone/APAP 5-325 [Silt 5-325 mg TAB] 1 each PO Q4H PRN #15 tablet PRN Reason: Pain, Moderate (4-6) ALPRAZolam [Xanax TAB] 0.25 mg PO Q8H PRN #15 tablet PRN Reason: Anxiety
--- NOTE | 2018-06-19 12:14 | Progress Note ---
Assessment and Plan Septic Shock suspected LLL pneumonia, SOFA score >2 Acute on chronic combined( hypoxic-hypercapnic) respiratory failure s/p ETT MVS Severe AE COPD AMS with Acute encephalopathy Macrocytosis GNR pneumonia, probably secondary to aspiration Acute encephalaopthy( toxic, metabolic) History of substance abuse - continue BIPAP qhs with prn daytime use - continue scheduled duonebs bid - continue systemic steroids with slow taper (on prednisone now) - continue brovana & pulmicort - PT/OT to increase ambulation - bilateral lower extremity dopplers negative for DVT - continue to wean supplemental oxygen to keep O2 sats 90% - tapered off seroquel - prn ABGs/CXR at this point - s/p empiric antibiotics for aspiration PNA - continue Stress ulcer prophylaxis - continue VTE prophylaxis - resume chronic home medications per attending - continue accuchecks with glycemic control for target glucose of 140-180 mg/dL - Continue bronchodilators with pulmonary hygiene per RT - continue maintenance of sleep -wake cycle - continue mobility as tolerated by hemodynamics - Influenza and pneumonia vaccination addressed per protocol ... awaiting placement PROGNOSIS guarded to fair CODE STATUS: FULL CODE Subjective Date of service: 06/19/18 Principal diagnosis: Septic Shock (? LLL pneumonia); Ac on Ch hypoxic- hypercapnic Resp failure Interval history: Patient is seen today for: Septic Shock suspected LLL pneumonia, SOFA score > 2; Acute on chronic combined( hypoxic-hypercapnic) respiratory failure s/p ETT MVS; Severe AE COPD; AMS with Acute encephalopathy; Macrocytosis Seen and examined at bedside; 24hour events reviewed; nursing and respiratory care staff consulted; no adverse overnight events reported to me; sitting in bed; Objective Vital Signs - 12hr 06/19/18 06/19/18 06/19/18 00:54 06:10 08:05 Temperature 98.0 F Pulse Rate 86 86 Pulse Rate [ 108 H Anterior Bilateral Throughout] Respiratory 18 20 Rate Respiratory 20 Rate [Anterior Bilateral Throughout] Blood Pressure 122/64 O2 Sat by Pulse 99 87 96 Oximetry 06/19/18 06/19/18 06/19/18 08:15 10:00 11:24 Temperature 97.5 F L Pulse Rate 101 H 83 Pulse Rate [ 103 H Anterior Bilateral Throughout] Respiratory 22 Rate Respiratory 20 Rate [Anterior Bilateral Throughout] Blood Pressure 112/53 O2 Sat by Pulse 94 Oximetry Constitutional: appears uncomfortable, other (elderly chronically ill looking CF; normocephalic and with mild patient-vent dyssynchrony) Eyes: non-icteric ENT: oropharynx moist, other (extubated) Neck: supple, no lymphadenopathy, no JVD, other (large neck circumference) Effort: mildly labored Ascultation: Bilateral: diminished breath sounds, rales, rhonchi, other (prolonged exp phase) Percussion: Bilateral: not dull Cardiovascular: regular rate and rhythm Gastrointestinal: normoactive bowel sounds, soft, non-tender, non-distended Integumentary: normal Extremities: no cyanosis, no edema, pink and warm, pulses normal Neurologic: non-focal exam (grossly), pupils equal and round, CN II-XII normal, motor strength normal and Psychiatric: mood appropriate, affect normal CBC and BMP: 06/18/18 05:01 06/18/18 05:01 ABG, PT/INR, D-dimer: ABG POC ABG pH 7.384 (7.35-7.45) 06/05/18 04:10 POC ABG pCO2 56.3 (35-45) H 06/05/18 04:10 POC ABG pO2 61 (80-105) L 06/05/18 04:10 POC ABG HCO3 33.6 (22-26 mml/L) 06/05/18 04:10 POC ABG Total CO2 35 (23-27mmol/L) 06/05/18 04:10 POC ABG O2 Sat 90 06/05/18 04:10 PT/INR, D-dimer D-Dimer 1062.49 ng/mlDDU (0-234) H 05/28/18 13:13 Abnormal lab findings: Abnormal Labs 05/28/18 05/28/18 05/28/18 13:13 13:13 13:13 WBC Hgb 9.7 L MCV 77 L MCH 23 L MCHC 29 L RDW 19.2 H Plt Count Lymph % (Auto) 8.5 L [place] % (Auto) 11.3 H Lymph # 0.8 L [place] # 1.1 H Seg Neutrophils % 79.8 H Seg Neuts % (Manual) Lymphocytes % (Manual) Nucleated RBC % Seg Neutrophils # Seg Neutrophils # Man Lymphocytes # (Manual) D-Dimer 1062.49 H POC ABG pH POC ABG pCO2 POC ABG pO2 Sodium Potassium Chloride Carbon Dioxide BUN 24 H Creatinine 0.6 L Glucose POC Glucose Calcium Magnesium Total Protein Albumin 3.5 L Triglycerides Ur Specific [place] 05/28/18 05/28/18 05/28/18 13:22 14:50 16:05 WBC Hgb MCV MCH MCHC RDW Plt Count Lymph % (Auto) [place] % (Auto) Lymph # [place] # Seg Neutrophils % Seg Neuts % (Manual) Lymphocytes % (Manual) Nucleated RBC % Seg Neutrophils # Seg Neutrophils # Man Lymphocytes # (Manual) D-Dimer POC ABG pH 7.249 L 7.126 L POC ABG pCO2 68.9 H POC ABG pO2 77 L Sodium Potassium Chloride 109.1 H Carbon Dioxide BUN 22 H Creatinine 0.5 L Glucose POC Glucose Calcium 7.5 L Magnesium Total Protein Albumin Triglycerides Ur Specific [place] 05/28/18 05/28/18 05/28/18 17:57 18:48 22:47 WBC Hgb MCV MCH MCHC RDW Plt Count Lymph % (Auto) [place] % (Auto) Lymph # [place] # Seg Neutrophils % Seg Neuts % (Manual) Lymphocytes % (Manual) Nucleated RBC % Seg Neutrophils # Seg Neutrophils # Man Lymphocytes # (Manual) D-Dimer POC ABG pH 7.195 L 7.312 L POC ABG pCO2 57.5 H POC ABG pO2 57 L 73 L Sodium Potassium Chloride Carbon Dioxide BUN Creatinine Glucose POC Glucose Calcium Magnesium Total Protein Albumin Triglycerides Ur Specific [place] > 1.030 H 05/30/18 05/30/18 05/31/18 06:10 10:42 04:23 WBC Hgb MCV MCH MCHC RDW Plt Count Lymph % (Auto) [place] % (Auto) Lymph # [place] # Seg Neutrophils % Seg Neuts % (Manual) Lymphocytes % (Manual) Nucleated RBC % Seg Neutrophils # Seg Neutrophils # Man Lymphocytes # (Manual) D-Dimer POC ABG pH 7.214 L 7.253 L POC ABG pCO2 64.5 H 56.4 H POC ABG pO2 78 L 74 L Sodium Potassium Chloride Carbon Dioxide BUN Creatinine Glucose POC Glucose Calcium Magnesium Total Protein Albumin Triglycerides Ur Specific [place] 05/31/18 05/31/18 05/31/18 06:30 08:50 08:50 WBC Hgb 9.3 L MCV 78 L MCH 23 L MCHC 29 L RDW 19.8 H Plt Count 131 L Lymph % (Auto) [place] % (Auto) Lymph # [place] # Seg Neutrophils % Seg Neuts % (Manual) 98.0 H Lymphocytes % (Manual) 2.0 L Nucleated RBC % 1.0 H Seg Neutrophils # Seg Neutrophils # Man 8.4 H Lymphocytes # (Manual) 0.2 L D-Dimer POC ABG pH POC ABG pCO2 POC ABG pO2 Sodium 153 H D Potassium Chloride 117.4 H Carbon Dioxide BUN 18 H Creatinine 0.4 L Glucose 159 H POC Glucose 146 H Calcium 8.3 L Magnesium Total Protein Albumin Triglycerides Ur Specific [place] 06/01/18 06/01/18 06/01/18 00:11 03:32 05:50 WBC Hgb 9.8 L MCV 77 L MCH 23 L MCHC 29 L RDW 20.1 H Plt Count 122 L Lymph % (Auto) [place] % (Auto) Lymph # [place] # Seg Neutrophils % Seg Neuts % (Manual) Lymphocytes % (Manual) Nucleated RBC % Seg Neutrophils # Seg Neutrophils # Man Lymphocytes # (Manual) D-Dimer POC ABG pH 7.465 H POC ABG pCO2 POC ABG pO2 Sodium Potassium Chloride Carbon Dioxide BUN Creatinine Glucose POC Glucose 149 H Calcium Magnesium Total Protein Albumin Triglycerides Ur Specific [place] 06/01/18 06/01/18 06/01/18 05:50 05:50 05:51 WBC Hgb MCV MCH MCHC RDW Plt Count Lymph % (Auto) [place] % (Auto) Lymph # [place] # Seg Neutrophils % Seg Neuts % (Manual) Lymphocytes % (Manual) Nucleated RBC % Seg Neutrophils # Seg Neutrophils # Man Lymphocytes # (Manual) D-Dimer POC ABG pH POC ABG pCO2 POC ABG pO2 Sodium 152 H Potassium Chloride 113.7 H Carbon Dioxide BUN 18 H Creatinine 0.3 L Glucose 146 H POC Glucose 146 H Calcium Magnesium 2.40 H Total Protein Albumin Triglycerides 214 H Ur Specific [place] 06/01/18 06/01/18 06/01/18 10:40 11:52 12:06 WBC Hgb MCV MCH MCHC RDW Plt Count Lymph % (Auto) [place] % (Auto) Lymph # [place] # Seg Neutrophils % Seg Neuts % (Manual) Lymphocytes % (Manual) Nucleated RBC % Seg Neutrophils # Seg Neutrophils # Man Lymphocytes # (Manual) D-Dimer POC ABG pH POC ABG pCO2 48.4 H POC ABG pO2 Sodium Potassium Chloride Carbon Dioxide BUN Creatinine Glucose POC Glucose 147 H 138 H Calcium Magnesium Total Protein Albumin Triglycerides Ur Specific [place] 06/01/18 06/02/18 06/02/18 18:08 00:39 04:11 WBC Hgb MCV MCH MCHC RDW Plt Count Lymph % (Auto) [place] % (Auto) Lymph # [place] # Seg Neutrophils % Seg Neuts % (Manual) Lymphocytes % (Manual) Nucleated RBC % Seg Neutrophils # Seg Neutrophils # Man Lymphocytes # (Manual) D-Dimer POC ABG pH POC ABG pCO2 50.3 H POC ABG pO2 72 L Sodium Potassium Chloride Carbon Dioxide BUN Creatinine Glucose POC Glucose 156 H 156 H Calcium Magnesium Total Protein Albumin Triglycerides Ur Specific [place] 06/02/18 06/02/18 06/02/18 05:16 07:47 07:47 WBC Hgb 10.0 L MCV 77 L MCH 23 L MCHC 29 L RDW 18.8 H Plt Count 103 L Lymph % (Auto) [place] % (Auto) Lymph # [place] # Seg Neutrophils % Seg Neuts % (Manual) Lymphocytes % (Manual) Nucleated RBC % Seg Neutrophils # Seg Neutrophils # Man Lymphocytes # (Manual) D-Dimer POC ABG pH POC ABG pCO2 POC ABG pO2 Sodium 148 H Potassium Chloride 109.4 H Carbon Dioxide 32 H BUN 21 H Creatinine 0.3 L Glucose 137 H POC Glucose 150 H Calcium Magnesium Total Protein Albumin Triglycerides Ur Specific [place] 06/02/18 06/02/18 06/02/18 11:46 17:51 19:58 WBC Hgb MCV MCH MCHC RDW Plt Count Lymph % (Auto) [place] % (Auto) Lymph # [place] # Seg Neutrophils % Seg Neuts % (Manual) Lymphocytes % (Manual) Nucleated RBC % Seg Neutrophils # Seg Neutrophils # Man Lymphocytes # (Manual) D-Dimer POC ABG pH POC ABG pCO2 POC ABG pO2 Sodium Potassium Chloride Carbon Dioxide BUN Creatinine Glucose POC Glucose 150 H 135 H 131 H Calcium Magnesium Total Protein Albumin Triglycerides Ur Specific [place] 06/03/18 06/03/18 06/03/18 04:28 04:59 04:59 WBC Hgb MCV 76 L MCH 23 L MCHC RDW 19.1 H Plt Count 99 L Lymph % (Auto) [place] % (Auto) Lymph # [place] # Seg Neutrophils % Seg Neuts % (Manual) Lymphocytes % (Manual) Nucleated RBC % Seg Neutrophils # Seg Neutrophils # Man Lymphocytes # (Manual) D-Dimer POC ABG pH POC ABG pCO2 50.4 H POC ABG pO2 65 L Sodium Potassium Chloride Carbon Dioxide BUN 23 H Creatinine 0.3 L Glucose 167 H POC Glucose Calcium Magnesium Total Protein Albumin Triglycerides Ur Specific [place] 06/03/18 06/03/18 06/03/18 05:17 12:20 17:28 WBC Hgb MCV MCH MCHC RDW Plt Count Lymph % (Auto) [place] % (Auto) Lymph # [place] # Seg Neutrophils % Seg Neuts % (Manual) Lymphocytes % (Manual) Nucleated RBC % Seg Neutrophils # Seg Neutrophils # Man Lymphocytes # (Manual) D-Dimer POC ABG pH POC ABG pCO2 POC ABG pO2 Sodium Potassium Chloride Carbon Dioxide BUN Creatinine Glucose POC Glucose 153 H 155 H 135 H Calcium Magnesium Total Protein Albumin Triglycerides Ur Specific [place] 06/03/18 06/04/18 06/04/18 23:23 04:37 05:15 WBC Hgb MCV MCH MCHC RDW Plt Count Lymph % (Auto) [place] % (Auto) Lymph # [place] # Seg Neutrophils % Seg Neuts % (Manual) Lymphocytes % (Manual) Nucleated RBC % Seg Neutrophils # Seg Neutrophils # Man Lymphocytes # (Manual) D-Dimer POC ABG pH POC ABG pCO2 51.3 H POC ABG pO2 79 L Sodium Potassium Chloride Carbon Dioxide BUN Creatinine Glucose POC Glucose 145 H 140 H Calcium Magnesium Total Protein Albumin Triglycerides Ur Specific [place] 06/04/18 06/04/18 06/05/18 11:47 17:22 01:13 WBC Hgb MCV MCH MCHC RDW Plt Count Lymph % (Auto) [place] % (Auto) Lymph # [place] # Seg Neutrophils % Seg Neuts % (Manual) Lymphocytes % (Manual) Nucleated RBC % Seg Neutrophils # Seg Neutrophils # Man Lymphocytes # (Manual) D-Dimer POC ABG pH POC ABG pCO2 POC ABG pO2 Sodium Potassium Chloride Carbon Dioxide BUN Creatinine Glucose POC Glucose 158 H 131 H 137 H Calcium Magnesium Total Protein Albumin Triglycerides Ur Specific [place] 06/05/18 06/05/18 06/05/18 04:10 06:33 11:41 WBC Hgb MCV MCH MCHC RDW Plt Count Lymph % (Auto) [place] % (Auto) Lymph # [place] # Seg Neutrophils % Seg Neuts % (Manual) Lymphocytes % (Manual) Nucleated RBC % Seg Neutrophils # Seg Neutrophils # Man Lymphocytes # (Manual) D-Dimer POC ABG pH POC ABG pCO2 56.3 H POC ABG pO2 61 L Sodium Potassium Chloride Carbon Dioxide BUN Creatinine Glucose POC Glucose 136 H 150 H Calcium Magnesium Total Protein Albumin Triglycerides Ur Specific [place] 06/05/18 06/05/18 06/05/18 15:27 19:49 22:44 WBC Hgb MCV MCH MCHC RDW Plt Count Lymph % (Auto) [place] % (Auto) Lymph # [place] # Seg Neutrophils % Seg Neuts % (Manual) Lymphocytes % (Manual) Nucleated RBC % Seg Neutrophils # Seg Neutrophils # Man Lymphocytes # (Manual) D-Dimer POC ABG pH POC ABG pCO2 POC ABG pO2 Sodium Potassium Chloride Carbon Dioxide 36 H D BUN 25 H Creatinine 0.4 L Glucose 130 H POC Glucose 125 H 137 H Calcium Magnesium Total Protein Albumin Triglycerides Ur Specific [place] 06/06/18 06/07/18 06/07/18 12:51 18:24 23:45 WBC Hgb MCV MCH MCHC RDW Plt Count Lymph % (Auto) [place] % (Auto) Lymph # [place] # Seg Neutrophils % Seg Neuts % (Manual) Lymphocytes % (Manual) Nucleated RBC % Seg Neutrophils # Seg Neutrophils # Man Lymphocytes # (Manual) D-Dimer POC ABG pH POC ABG pCO2 POC ABG pO2 Sodium Potassium Chloride Carbon Dioxide BUN Creatinine Glucose POC Glucose 66 L 139 H 130 H Calcium Magnesium Total Protein Albumin Triglycerides Ur Specific [place] 06/08/18 06/08/18 06/08/18 03:37 03:37 06:24 WBC Hgb MCV 76 L MCH 24 L MCHC RDW 19.8 H Plt Count 103 L Lymph % (Auto) [place] % (Auto) Lymph # [place] # Seg Neutrophils % Seg Neuts % (Manual) Lymphocytes % (Manual) Nucleated RBC % Seg Neutrophils # Seg Neutrophils # Man Lymphocytes # (Manual) D-Dimer POC ABG pH POC ABG pCO2 POC ABG pO2 Sodium Potassium Chloride Carbon Dioxide BUN Creatinine 0.2 L Glucose 123 H POC Glucose 119 H Calcium 8.3 L Magnesium Total Protein Albumin Triglycerides Ur Specific [place] 06/08/18 06/09/18 06/10/18 23:26 16:38 00:39 WBC Hgb MCV MCH MCHC RDW Plt Count Lymph % (Auto) [place] % (Auto) Lymph # [place] # Seg Neutrophils % Seg Neuts % (Manual) Lymphocytes % (Manual) Nucleated RBC % Seg Neutrophils # Seg Neutrophils # Man Lymphocytes # (Manual) D-Dimer POC ABG pH POC ABG pCO2 POC ABG pO2 Sodium Potassium Chloride Carbon Dioxide BUN Creatinine Glucose POC Glucose 106 H 109 H 114 H Calcium Magnesium Total Protein Albumin Triglycerides Ur Specific [place] 06/10/18 06/10/18 06/11/18 09:47 09:47 00:05 WBC 16.9 H Hgb MCV 78 L MCH 23 L MCHC RDW 20.0 H Plt Count Lymph % (Auto) 9.1 L [place] % (Auto) 8.5 H Lymph # [place] # 1.4 H Seg Neutrophils % 81.8 H Seg Neuts % (Manual) Lymphocytes % (Manual) Nucleated RBC % Seg Neutrophils # 13.9 H Seg Neutrophils # Man Lymphocytes # (Manual) D-Dimer POC ABG pH POC ABG pCO2 POC ABG pO2 Sodium Potassium Chloride Carbon Dioxide BUN Creatinine 0.3 L Glucose 110 H POC Glucose 110 H Calcium Magnesium Total Protein 5.9 L Albumin 3.5 L Triglycerides Ur Specific [place] 06/11/18 06/11/18 06/12/18 06:08 06:08 00:19 WBC 15.7 H 20.3 H Hgb MCV 77 L 77 L MCH 24 L 23 L MCHC RDW 20.3 H 20.7 H Plt Count Lymph % (Auto) 8.9 L [place] % (Auto) Lymph # [place] # 1.0 H Seg Neutrophils % 83.7 H Seg Neuts % (Manual) 93.0 H Lymphocytes % (Manual) 4.0 L Nucleated RBC % Seg Neutrophils # 13.2 H Seg Neutrophils # Man 18.9 H Lymphocytes # (Manual) 0.8 L D-Dimer POC ABG pH POC ABG pCO2 POC ABG pO2 Sodium Potassium 3.3 L Chloride Carbon Dioxide BUN Creatinine 0.4 L Glucose POC Glucose Calcium Magnesium Total Protein Albumin Triglycerides Ur Specific [place] 06/13/18 06/13/18 06/15/18 05:00 05:00 05:40 WBC 18.0 H Hgb 10.0 L MCV 78 L 78 L MCH 23 L 24 L MCHC RDW 21.8 H 22.6 H Plt Count 116 L Lymph % (Auto) 7.2 L [place] % (Auto) 7.7 H Lymph # [place] # 1.1 H Seg Neutrophils % 86.3 H 72.5 H Seg Neuts % (Manual) Lymphocytes % (Manual) Nucleated RBC % Seg Neutrophils # 15.6 H Seg Neutrophils # Man Lymphocytes # (Manual) D-Dimer POC ABG pH POC ABG pCO2 POC ABG pO2 Sodium Potassium 3.5 L Ch[place] Carbon Dioxide BUN 20 H Creatinine 0.5 L Glucose 138 H POC Glucose Calcium Magnesium Total Protein Albumin Triglycerides Ur Specific [place] 06/15/18 06/18/18 06/18/18 05:40 05:01 05:01 WBC Hgb MCV MCH 25 L MCHC RDW 23.2 H Plt Count 120 L Lymph % (Auto) [place] % (Auto) Lymph # [place] # Seg Neutrophils % Seg Neuts % (Manual) Lymphocytes % (Manual) Nucleated RBC % Seg Neutrophils # Seg Neutrophils # Man Lymphocytes # (Manual) D-Dimer POC ABG pH POC ABG pCO2 POC ABG pO2 Sodium Potassium Chloride Carbon Dioxide BUN Creatinine 0.4 L 0.4 L Glucose POC Glucose Calcium Magnesium Total Protein 5.8 L Albumin 3.6 L Triglycerides Ur Specific [place] Allied health notes reviewed: nursing
[2018-06-19] MEDS: ARIXTRA SUB-Q SCH (21:34)
[2018-06-20] MEDS: NORCO 5/325 PO PRN ×3 (01:39→17:56)
[2018-06-20] MEDS: PULMICORT IH SCH ×2 (07:35→20:27)
[2018-06-20] MEDS: BROVANA NEBU IH SCH ×2 (07:35→20:27)
[2018-06-20] MEDS: DUONEB *Not for PRN Use IH SCH ×2 (07:36→20:27)
--- NOTE | 2018-06-20 07:46 | Progress Note ---
Assessment and Plan -Septic Shock suspected LLL pneumonia, SOFA score >2 -Acute on chronic combined( hypoxic-hypercapnic) respiratory failure -Severe AE COPD -AMS with Acute encephalopathy -Macrocytosis -GNR pneumonia, probably secondary to aspiration -Acute encephalaopthy( toxic, metabolic) -History of substance abuse -Thrombocytopenia( multifactorial) -Hypernatremia -Hyperchloremia Thrombocytopenia - continue BIPAP qhs with prn daytime use - continue scheduled duonebs bid - continue to taper prednisone - continue brovana & pulmicort - PT/OT to increase ambulation - continue to wean supplemental oxygen to keep O2 sats 90% - prn ABGs/CXR at this point - s/p empiric antibiotics for aspiration PNA - continue VTE prophylaxis - continue accuchecks with glycemic control for target glucose of 140-180 mg/dL - Influenza and pneumonia vaccination addressed per protocol Discharge planning Subjective Date of service: 06/20/18 Principal diagnosis: Septic Shock (? LLL pneumonia); Ac on Ch hypoxic- hypercapnic Resp failure Interval history: Patient is seen today for: Septic Shock suspected LLL pneumonia, SOFA score > 2; Acute on chronic combined( hypoxic-hypercapnic) respiratory failure s/p ETT MVS; Severe AE COPD; AMS with Acute encephalopathy; Macrocytosis Seen and examined at bedside; 24hour events reviewed; nursing and respiratory care staff consulted; no adverse overnight events reported to me; sitting in bed; less SOB; BIPAP qhs; denies acute chest pains or palpitations; No N/V/F/C Awake and alert, responsive and appropriate behavior Objective Vital Signs - 12hr 06/19/18 06/19/18 06/19/18 20:00 20:38 22:55 Temperature Pulse Rate Pulse Rate [ 87 86 Anterior Bilateral Throughout] Respiratory Rate Respiratory 20 20 Rate [Anterior Bilateral Throughout] Blood Pressure O2 Sat by Pulse 97 Oximetry 06/20/18 06/20/18 06/20/18 00:54 05:22 07:36 Temperature 98.7 F 97.9 F Pulse Rate 81 84 Pulse Rate [ 84 Anterior Bilateral Throughout] Respiratory 18 18 Rate Respiratory 18 Rate [Anterior Bilateral Throughout] Blood Pressure 138/72 143/68 O2 Sat by Pulse 95 94 Oximetry 06/20/18 06/20/18 07:37 07:43 Temperature Pulse Rate Pulse Rate [ 85 Anterior Bilateral Throughout] Respiratory Rate Respiratory 18 Rate [Anterior Bilateral Throughout] Blood Pressure O2 Sat by Pulse 95 Oximetry Constitutional: no acute distress, other (on supplemetnal oxygen via NC, garcia facies) Eyes: non-icteric ENT: oropharynx moist Neck: supple, no lymphadenopathy, no JVD, other (large neck circumference) Effort: mildly labored Ascultation: Bilateral: diminished breath sounds, rales, rhonchi, other (prolonged exp phase) Percussion: Bilateral: not dull Cardiovascular: regular rate and rhythm Gastrointestinal: normoactive bowel sounds, soft, non-tender, non-distended Integumentary: normal Extremities: no cyanosis, no edema, pink and warm, pulses normal Neurologic: non-focal exam, pupils equal and round, CN II-XII normal, motor strength normal and Psychiatric: mood appropriate, affect normal CBC and BMP: 06/18/18 05:01 06/18/18 05:01 ABG, PT/INR, D-dimer: ABG POC ABG pH 7.384 (7.35-7.45) 06/05/18 04:10 POC ABG pCO2 56.3 (35-45) H 06/05/18 04:10 POC ABG pO2 61 (80-105) L 06/05/18 04:10 POC ABG HCO3 33.6 (22-26 mml/L) 06/05/18 04:10 POC ABG Total CO2 35 (23-27mmol/L) 06/05/18 04:10 POC ABG O2 Sat 90 06/05/18 04:10 PT/INR, D-dimer D-Dimer 1062.49 ng/mlDDU (0-234) H 05/28/18 13:13 Abnormal lab findings: Abnormal Labs 05/28/18 05/28/18 05/28/18 13:13 13:13 13:13 WBC Hgb 9.7 L MCV 77 L MCH 23 L MCHC 29 L RDW 19.2 H Plt Count Lymph % (Auto) 8.5 L [place] % (Auto) 11.3 H Lymph # 0.8 L [place] # 1.1 H Seg Neutrophils % 79.8 H Seg Neuts % (Manual) Lymphocytes % (Manual) Nucleated RBC % Seg Neutrophils # Seg Neutrophils # Man Lymphocytes # (Manual) D-Dimer 1062.49 H POC ABG pH POC ABG pCO2 POC ABG pO2 Sodium Potassium Chloride Carbon Dioxide BUN 24 H Creatinine 0.6 L Glucose POC Glucose Calcium Magnesium Total Protein Albumin 3.5 L Triglycerides Ur Specific [place] 05/28/18 05/28/18 05/28/18 13:22 14:50 16:05 WBC Hgb MCV MCH MCHC RDW Plt Count Lymph % (Auto) [place] % (Auto) Lymph # [place] # Seg Neutrophils % Seg Neuts % (Manual) Lymphocytes % (Manual) Nucleated RBC % Seg Neutrophils # Seg Neutrophils # Man Lymphocytes # (Manual) D-Dimer POC ABG pH 7.249 L 7.126 L POC ABG pCO2 68.9 H POC ABG pO2 77 L Sodium Potassium Chloride 109.1 H Carbon Dioxide BUN 22 H Creatinine 0.5 L Glucose POC Glucose Calcium 7.5 L Magnesium Total Protein Albumin Triglycerides Ur Specific [place] 05/28/18 05/28/18 05/28/18 17:57 18:48 22:47 WBC Hgb MCV MCH MCHC RDW Plt Count Lymph % (Auto) [place] % (Auto) Lymph # [place] # Seg Neutrophils % Seg Neuts % (Manual) Lymphocytes % (Manual) Nucleated RBC % Seg Neutrophils # Seg Neutrophils # Man Lymphocytes # (Manual) D-Dimer POC ABG pH 7.195 L 7.312 L POC ABG pCO2 57.5 H POC ABG pO2 57 L 73 L Sodium Potassium Chloride Carbon Dioxide BUN Creatinine Glucose POC Glucose Calcium Magnesium Total Protein Albumin Triglycerides Ur Specific [place] > 1.030 H 05/30/18 05/30/18 05/31/18 06:10 10:42 04:23 WBC Hgb MCV MCH MCHC RDW Plt Count Lymph % (Auto) [place] % (Auto) Lymph # [place] # Seg Neutrophils % Seg Neuts % (Manual) Lymphocytes % (Manual) Nucleated RBC % Seg Neutrophils # Seg Neutrophils # Man Lymphocytes # (Manual) D-Dimer POC ABG pH 7.214 L 7.253 L POC ABG pCO2 64.5 H 56.4 H POC ABG pO2 78 L 74 L Sodium Potassium Chloride Carbon Dioxide BUN Creatinine Glucose POC Glucose Calcium Magnesium Total Protein Albumin Triglycerides Ur Specific [place] 05/31/18 05/31/18 05/31/18 06:30 08:50 08:50 WBC Hgb 9.3 L MCV 78 L MCH 23 L MCHC 29 L RDW 19.8 H Plt Count 131 L Lymph % (Auto) [place] % (Auto) Lymph # [place] # Seg Neutrophils % Seg Neuts % (Manual) 98.0 H Lymphocytes % (Manual) 2.0 L Nucleated RBC % 1.0 H Seg Neutrophils # Seg Neutrophils # Man 8.4 H Lymphocytes # (Manual) 0.2 L D-Dimer POC ABG pH POC ABG pCO2 POC ABG pO2 Sodium 153 H D Potassium Chloride 117.4 H Carbon Dioxide BUN 18 H Creatinine 0.4 L Glucose 159 H POC Glucose 146 H Calcium 8.3 L Magnesium Total Protein Albumin Triglycerides Ur Specific [place] 06/01/18 06/01/18 06/01/18 00:11 03:32 05:50 WBC Hgb 9.8 L MCV 77 L MCH 23 L MCHC 29 L RDW 20.1 H Plt Count 122 L Lymph % (Auto) [place] % (Auto) Lymph # [place] # Seg Neutrophils % Seg Neuts % (Manual) Lymphocytes % (Manual) Nucleated RBC % Seg Neutrophils # Seg Neutrophils # Man Lymphocytes # (Manual) D-Dimer POC ABG pH 7.465 H POC ABG pCO2 POC ABG pO2 Sodium Potassium Chloride Carbon Dioxide BUN Creatinine Glucose POC Glucose 149 H Calcium Magnesium Total Protein Albumin Triglycerides Ur Specific [place] 06/01/18 06/01/18 06/01/18 05:50 05:50 05:51 WBC Hgb MCV MCH MCHC RDW Plt Count Lymph % (Auto) [place] % (Auto) Lymph # [place] # Seg Neutrophils % Seg Neuts % (Manual) Lymphocytes % (Manual) Nucleated RBC % Seg Neutrophils # Seg Neutrophils # Man Lymphocytes # (Manual) D-Dimer POC ABG pH POC ABG pCO2 POC ABG pO2 Sodium 152 H Potassium Chloride 113.7 H Carbon Dioxide BUN 18 H Creatinine 0.3 L Glucose 146 H POC Glucose 146 H Calcium Magnesium 2.40 H Total Protein Albumin Triglycerides 214 H Ur Specific [place] 06/01/18 06/01/18 06/01/18 10:40 11:52 12:06 WBC Hgb MCV MCH MCHC RDW Plt Count Lymph % (Auto) [place] % (Auto) Lymph # [place] # Seg Neutrophils % Seg Neuts % (Manual) Lymphocytes % (Manual) Nucleated RBC % Seg Neutrophils # Seg Neutrophils # Man Lymphocytes # (Manual) D-Dimer POC ABG pH POC ABG pCO2 48.4 H POC ABG pO2 Sodium Potassium Chloride Carbon Dioxide BUN Creatinine Glucose POC Glucose 147 H 138 H Calcium Magnesium Total Protein Albumin Triglycerides Ur Specific [place] 06/01/18 06/02/18 06/02/18 18:08 00:39 04:11 WBC Hgb MCV MCH MCHC RDW Plt Count Lymph % (Auto) [place] % (Auto) Lymph # [place] # Seg Neutrophils % Seg Neuts % (Manual) Lymphocytes % (Manual) Nucleated RBC % Seg Neutrophils # Seg Neutrophils # Man Lymphocytes # (Manual) D-Dimer POC ABG pH POC ABG pCO2 50.3 H POC ABG pO2 72 L Sodium Potassium Chloride Carbon Dioxide BUN Creatinine Glucose POC Glucose 156 H 156 H Calcium Magnesium Total Protein Albumin Triglycerides Ur Specific [place] 06/02/18 06/02/18 06/02/18 05:16 07:47 07:47 WBC Hgb 10.0 L MCV 77 L MCH 23 L MCHC 29 L RDW 18.8 H Plt Count 103 L Lymph % (Auto) [place] % (Auto) Lymph # [place] # Seg Neutrophils % Seg Neuts % (Manual) Lymphocytes % (Manual) Nucleated RBC % Seg Neutrophils # Seg Neutrophils # Man Lymphocytes # (Manual) D-Dimer POC ABG pH POC ABG pCO2 POC ABG pO2 Sodium 148 H Potassium Chloride 109.4 H Carbon Dioxide 32 H BUN 21 H Creatinine 0.3 L Glucose 137 H POC Glucose 150 H Calcium Magnesium Total Protein Albumin Triglycerides Ur Specific [place] 06/02/18 06/02/18 06/02/18 11:46 17:51 19:58 WBC Hgb MCV MCH MCHC RDW Plt Count Lymph % (Auto) [place] % (Auto) Lymph # [place] # Seg Neutrophils % Seg Neuts % (Manual) Lymphocytes % (Manual) Nucleated RBC % Seg Neutrophils # Seg Neutrophils # Man Lymphocytes # (Manual) D-Dimer POC ABG pH POC ABG pCO2 POC ABG pO2 Sodium Potassium Chloride Carbon Dioxide BUN Creatinine Glucose POC Glucose 150 H 135 H 131 H Calcium Magnesium Total Protein Albumin Triglycerides Ur Specific [place] 06/03/18 06/03/18 06/03/18 04:28 04:59 04:59 WBC Hgb MCV 76 L MCH 23 L MCHC RDW 19.1 H Plt Count 99 L Lymph % (Auto) [place] % (Auto) Lymph # [place] # Seg Neutrophils % Seg Neuts % (Manual) Lymphocytes % (Manual) Nucleated RBC % Seg Neutrophils # Seg Neutrophils # Man Lymphocytes # (Manual) D-Dimer POC ABG pH POC ABG pCO2 50.4 H POC ABG pO2 65 L Sodium Potassium Chloride Carbon Dioxide BUN 23 H Creatinine 0.3 L Glucose 167 H POC Glucose Calcium Magnesium Total Protein Albumin Triglycerides Ur Specific [place] 06/03/18 06/03/18 06/03/18 05:17 12:20 17:28 WBC Hgb MCV MCH MCHC RDW Plt Count Lymph % (Auto) [place] % (Auto) Lymph # [place] # Seg Neutrophils % Seg Neuts % (Manual) Lymphocytes % (Manual) Nucleated RBC % Seg Neutrophils # Seg Neutrophils # Man Lymphocytes # (Manual) D-Dimer POC ABG pH POC ABG pCO2 POC ABG pO2 Sodium Potassium Chloride Carbon Dioxide BUN Creatinine Glucose POC Glucose 153 H 155 H 135 H Calcium Magnesium Total Protein Albumin Triglycerides Ur Specific [place] 06/03/18 06/04/18 06/04/18 23:23 04:37 05:15 WBC Hgb MCV MCH MCHC RDW Plt Count Lymph % (Auto) [place] % (Auto) Lymph # [place] # Seg Neutrophils % Seg Neuts % (Manual) Lymphocytes % (Manual) Nucleated RBC % Seg Neutrophils # Seg Neutrophils # Man Lymphocytes # (Manual) D-Dimer POC ABG pH POC ABG pCO2 51.3 H POC ABG pO2 79 L Sodium Potassium Chloride Carbon Dioxide BUN Creatinine Glucose POC Glucose 145 H 140 H Calcium Magnesium Total Protein Albumin Triglycerides Ur Specific [place] 06/04/18 06/04/18 06/05/18 11:47 17:22 01:13 WBC Hgb MCV MCH MCHC RDW Plt Count Lymph % (Auto) [place] % (Auto) Lymph # [place] # Seg Neutrophils % Seg Neuts % (Manual) Lymphocytes % (Manual) Nucleated RBC % Seg Neutrophils # Seg Neutrophils # Man Lymphocytes # (Manual) D-Dimer POC ABG pH POC ABG pCO2 POC ABG pO2 Sodium Potassium Chloride Carbon Dioxide BUN Creatinine Glucose POC Glucose 158 H 131 H 137 H Calcium Magnesium Total Protein Albumin Triglycerides Ur Specific [place] 06/05/18 06/05/18 06/05/18 04:10 06:33 11:41 WBC Hgb MCV MCH MCHC RDW Plt Count Lymph % (Auto) [place] % (Auto) Lymph # [place] # Seg Neutrophils % Seg Neuts % (Manual) Lymphocytes % (Manual) Nucleated RBC % Seg Neutrophils # Seg Neutrophils # Man Lymphocytes # (Manual) D-Dimer POC ABG pH POC ABG pCO2 56.3 H POC ABG pO2 61 L Sodium Potassium Chloride Carbon Dioxide BUN Creatinine Glucose POC Glucose 136 H 150 H Calcium Magnesium Total Protein Albumin Triglycerides Ur Specific [place] 06/05/18 06/05/18 06/05/18 15:27 19:49 22:44 WBC Hgb MCV MCH MCHC RDW Plt Count Lymph % (Auto) [place] % (Auto) Lymph # [place] # Seg Neutrophils % Seg Neuts % (Manual) Lymphocytes % (Manual) Nucleated RBC % Seg Neutrophils # Seg Neutrophils # Man Lymphocytes # (Manual) D-Dimer POC ABG pH POC ABG pCO2 POC ABG pO2 Sodium Potassium Chloride Carbon Dioxide 36 H D BUN 25 H Creatinine 0.4 L Glucose 130 H POC Glucose 125 H 137 H Calcium Magnesium Total Protein Albumin Triglycerides Ur Specific [place] 06/06/18 06/07/18 06/07/18 12:51 18:24 23:45 WBC Hgb MCV MCH MCHC RDW Plt Count Lymph % (Auto) [place] % (Auto) Lymph # [place] # Seg Neutrophils % Seg Neuts % (Manual) Lymphocytes % (Manual) Nucleated RBC % Seg Neutrophils # Seg Neutrophils # Man Lymphocytes # (Manual) D-Dimer POC ABG pH POC ABG pCO2 POC ABG pO2 Sodium Potassium Chloride Carbon Dioxide BUN Creatinine Glucose POC Glucose 66 L 139 H 130 H Calcium Magnesium Total Protein Albumin Triglycerides Ur Specific [place] 06/08/18 06/08/18 06/08/18 03:37 03:37 06:24 WBC Hgb MCV 76 L MCH 24 L MCHC RDW 19.8 H Plt Count 103 L Lymph % (Auto) [place] % (Auto) Lymph # [place] # Seg Neutrophils % Seg Neuts % (Manual) Lymphocytes % (Manual) Nucleated RBC % Seg Neutrophils # Seg Neutrophils # Man Lymphocytes # (Manual) D-Dimer POC ABG pH POC ABG pCO2 POC ABG pO2 Sodium Potassium Chloride Carbon Dioxide BUN Creatinine 0.2 L Glucose 123 H POC Glucose 119 H Calcium 8.3 L Magnesium Total Protein Albumin Triglycerides Ur Specific [place] 06/08/18 06/09/18 06/10/18 23:26 16:38 00:39 WBC Hgb MCV MCH MCHC RDW Plt Count Lymph % (Auto) [place] % (Auto) Lymph # [place] # Seg Neutrophils % Seg Neuts % (Manual) Lymphocytes % (Manual) Nucleated RBC % Seg Neutrophils # Seg Neutrophils # Man Lymphocytes # (Manual) D-Dimer POC ABG pH POC ABG pCO2 POC ABG pO2 Sodium Potassium Chloride Carbon Dioxide BUN Creatinine Glucose POC Glucose 106 H 109 H 114 H Calcium Magnesium Total Protein Albumin Triglycerides Ur Specific [place] 06/10/18 06/10/18 06/11/18 09:47 09:47 00:05 WBC 16.9 H Hgb MCV 78 L MCH 23 L MCHC RDW 20.0 H Plt Count Lymph % (Auto) 9.1 L [place] % (Auto) 8.5 H Lymph # [place] # 1.4 H Seg Neutrophils % 81.8 H Seg Neuts % (Manual) Lymphocytes % (Manual) Nucleated RBC % Seg Neutrophils # 13.9 H Seg Neutrophils # Man Lymphocytes # (Manual) D-Dimer POC ABG pH POC ABG pCO2 POC ABG pO2 Sodium Potassium Chloride Carbon Dioxide BUN Creatinine 0.3 L Glucose 110 H POC Glucose 110 H Calcium Magnesium Total Protein 5.9 L Albumin 3.5 L Triglycerides Ur Specific [place] 06/11/18 06/11/18 06/12/18 06:08 06:08 00:19 WBC 15.7 H 20.3 H Hgb MCV 77 L 77 L MCH 24 L 23 L MCHC RDW 20.3 H 20.7 H Plt Count Lymph % (Auto) 8.9 L [place] % (Auto) Lymph # [place] # 1.0 H Seg Neutrophils % 83.7 H Seg Neuts % (Manual) 93.0 H Lymphocytes % (Manual) 4.0 L Nucleated RBC % Seg Neutrophils # 13.2 H Seg Neutrophils # Man 18.9 H Lymphocytes # (Manual) 0.8 L D-Dimer POC ABG pH POC ABG pCO2 POC ABG pO2 Sodium Potassium 3.3 L Chloride Carbon Dioxide BUN Creatinine 0.4 L Glucose POC Glucose Calcium Magnesium Total Protein Albumin Triglycerides Ur Specific [place] 06/13/18 06/13/18 06/15/18 05:00 05:00 05:40 WBC 18.0 H Hgb 10.0 L MCV 78 L 78 L MCH 23 L 24 L MCHC RDW 21.8 H 22.6 H Plt Count 116 L Lymph % (Auto) 7.2 L [place] % (Auto) 7.7 H Lymph # [place] # 1.1 H Seg Neutrophils % 86.3 H 72.5 H Seg Neuts % (Manual) Lymphocytes % (Manual) Nucleated RBC % Seg Neutrophils # 15.6 H Seg Neutrophils # Man Lymphocytes # (Manual) D-Dimer POC ABG pH POC ABG pCO2 POC ABG pO2 Sodium Potassium 3.5 L Chloride Carbon Dioxide BUN 20 H Creatinine 0.5 L Glucose 138 H POC Glucose Calcium Magnesium Total Protein Albumin Triglycerides Ur Specific [place] 06/15/18 06/18/18 06/18/18 05:40 05:01 05:01 WBC Hgb MCV MCH 25 L MCHC RDW 23.2 H Plt Count 120 L Lymph % (Auto) [place] % (Auto) Lymph # [place] # Seg Neutrophils % Seg Neuts % (Manual) Lymphocytes % (Manual) Nucleated RBC % Seg Neutrophils # Seg Neutrophils # Man Lymphocytes # (Manual) D-Dimer POC ABG pH POC ABG pCO2 POC ABG pO2 Sodium Potassium Chloride Carbon Dioxide BUN Creatinine 0.4 L 0.4 L Glucose POC Glucose Calcium Magnesium Total Protein 5.8 L Albumin 3.6 L Triglycerides Ur Specific [place] 06/19/18 20:50 WBC Hgb MCV MCH MCHC RDW Plt Count Lymph % (Auto) [place] % (Auto) Lymph # [place] # Seg Neutrophils % Seg Neuts % (Manual) Lymphocytes % (Manual) Nucleated RBC % Seg Neutrophils # Seg Neutrophils # Man Lymphocytes # (Manual) D-Dimer POC ABG pH POC ABG pCO2 POC ABG pO2 Sodium Potassium Chloride Carbon Dioxide BUN Creatinine Glucose POC Glucose 110 H Calcium Magnesium Total Protein Albumin Triglycerides Ur Specific [place] Allied health notes reviewed: nursing
[2018-06-20] MEDS: PREVACID SOLUTAB FEEDTUBE SCH (10:18)
[2018-06-20] MEDS: LIORESAL PO SCH ×2 (10:18→22:07)
[2018-06-20] MEDS: BUSPAR PO SCH ×2 (10:18→22:07)
[2018-06-20] MEDS: DELTASONE PO SCH (10:19)
[2018-06-20] MEDS: EFFEXOR PO SCH ×3 (10:25→17:54)
[2018-06-20] MEDS: SODIUM CHLORIDE FLUSH SYRINGE 10 ML IV SCH ×2 (10:26→22:07)
--- NOTE | 2018-06-20 13:02 | Progress Note ---
Assessment and Plan -AMS with Acute encephalopathy, prior records show a long history of similar presentations and PCP toxicity: ordered UDS -Acute on chronic combined respiratory failure s/p ETT MV, s/p extubated, now on 3 liters: continue nebs, Construction Superintendent/[employer] Supervisor following -Severe AE COPD: treat with iv steriods, abx, nebs around the clock -Hypotension due to circulatory shock possible septic shock from LLL pneumonia: resolved, off Vasopressor -Septic Shock suspected LLL Pseudomonas/E.coli pneumonia: -treated with ivf, abx, ID following, trachea aspirate growing Gram negative==> PSA resistant to Aztreonam/zosyn/cefepime/fortaz but sensitive to cipro/gent/levaquin/tobramycin; E. coli has not resistant, changed antibiotics to Levaquin and Gentamicin. 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 According to chart, pt has not been using her O2 and started hallucinating. She was intubated in the ED. She was also hypotensive in the ED and started on Vasopressor/Levophed. Being treated for PNA, on abx. Weaned off from vent, transferred to floor. Now waiting on SNF placement. * CTA chest IMPRESSION: 1. Study degraded by artifact created by retained hardware in the thoracic spine and by motion artifact. 2. No evidence of central pulmonary artery emboli. However, segmental pulmonary artery emboli could be missed or overcalled due to significant artifact. 3. Complete consolidation left lower lobe with air bronchograms and volume loss consistent with atelectasis. There appears to be opacification of a portion of the left lower lobe bronchus. 4. Tip of the endotracheal tube projected in satisfactory position. 5. Cardiomegaly. 6. IVC filter. 7. Prominent kyphosis of the thoracic spine with extensive instrumentation with retained hardware. * Abdominal 1 view XRAY IMPRESSION: Nasogastric tube is terminating in the stomach. Mild degree left pleural effusion * pCXR FINDINGS: Heart: Prominent cardiac silhouette. Mediastinum/Vessels: Prominent central vessels. Lungs/Pleural space: Left lung base airspace consolidation. Bony thorax: No acute osseous abnormality. Life support devices: The endotracheal tube tip is obscured by hardware in the thoracic spine, but likely projects approximately 4 cm superior to the carlos manuel. IMPRESSI ON: Prominent cardiac silhouette. Left lung base airspace consolidation Hospitalist Physical Gen: NAD, Awake, Alert, HEENT: NCAT, EOMI, PERRL, OP Clear Neck: supple, no adenopathy, no thyromegaly, no JVD CVS/Heart: RRR, normal S1S2, pulses present bilaterally Chest/Lungs: diminished bs bilateral, Symmetrical chest expansion, good air entry bilaterally GI/Abdomen: soft, NTND, good bowel sounds, no guarding or rebound /Bladder: no suprapubic tenderness, no CVA or paraspinal tenderness Extermity/Skin: no c/c/e, no obvious rash MSK: no joint swelling Neuro: CN 2-12 grossly intact, no new focal deficits Psych: calm Subjective Date of service: 06/20/18 Principal diagnosis: Septic Shock (? LLL pneumonia); Ac on Ch hypoxic-hyper capnic Resp failure Interval history: Patient was seen and examined. Imaging, nursing note, chart, labs and old chart reviewed. No acute event O/n Pending placement Objective - Constitutional Vitals: Vital Signs - 12hr 06/20/18 06/20/18 06/20/18 05:22 07:36 07:37 Temperature 97.9 F Pulse Rate 84 Pulse Rate [ 84 Anterior Bilateral Throughout] Respiratory 18 Rate Respiratory 18 Rate [Anterior Bilateral Throughout] Blood Pressure 143/68 O2 Sat by Pulse 94 95 Oximetry 06/20/18 07:43 Temperature Pulse Rate Pulse Rate [ 85 Anterior Bilateral Throughout] Respiratory Rate Respiratory 18 Rate [Anterior Bilateral Throughout] Blood Pressure O2 Sat by Pulse Oximetry - Labs CBC & Chem 7: 06/18/18 05:01 06/18/18 05:01 Labs: Abnormal lab results 06/19/18 Range/Units 20:50 POC Glucose 110 H (70-105)
[2018-06-20] MEDS: ARIXTRA SUB-Q SCH (22:07)
[2018-06-21] MEDS: NORCO 5/325 PO PRN ×2 (06:08→10:57)
[2018-06-21] MEDS: PULMICORT IH SCH ×3 (08:21→19:38)
[2018-06-21] MEDS: BROVANA NEBU IH SCH ×3 (08:21→19:38)
[2018-06-21] MEDS: DUONEB *Not for PRN Use IH SCH ×3 (08:23→19:39)
--- NOTE | 2018-06-21 09:44 | Progress Note ---
Assessment and Plan -AMS with Acute encephalopathy, significant improvement from admission prior records show a long history of similar presentations and PCP toxicity: ordered UDS, history of substance abuse, psych disorder, psych following --Acute thrombocytopenia: negative for HIT, monitor CBC -Acute on chronic combined respiratory failure s/p ETT MV, s/p extubated, now on 3 liters: continue nebs, Business Supervisor/[employer]omatic Pinsetter Adjuster following -Severe AE COPD: treat with iv steriods, abx, nebs around the clock -Hypotension due to circulatory shock possible septic shock from LLL pneumonia: resolved, off Vasopressor -Septic Shock suspected LLL Pseudomonas/E.coli pneumonia: -treated with ivf, abx, ID following, trachea aspirate growing Gram negative==> PSA resistant to Aztreonam/zosyn/cefepime/fortaz but sensitive to cipro /gent/levaquin/tobramycin; E. coli has not resistant, changed antibiotics to Levaquin and Gentamicin. 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 According to chart, pt has not been using her O2 and started hallucinating. She was intubated in the ED. She was also hypotensive in the ED and started on V asopressor/Levophed. Being treated for PNA, on abx. Weaned off from vent, transferred to floor. Now waiting on SNF placement. * CTA chest IMPRESSION: 1. Study degraded by artifact created by retained hardware in the thoracic spine and by motion artifact. 2. No evidence of central pulmonary artery emboli. However, segmental pulmonary artery emboli could be missed or overcalled due to significant artifact. 3. Complete consolidation left lower lobe with air bronchograms and volume loss consistent with atelectasis. There appears to be opacification of a portion of the left lower lobe bronchus. 4. Tip of the endotracheal tube projected in satisfactory position. 5. Cardiomegaly. 6. IVC filter. 7. Prominent kyphosis of the thoracic spine with extensive instrumentation with retained hardware. * Abdominal 1 view XRAY IMPRESSION: Nasogastric tube is terminating in the stomach. Mild degree left pleural effusion * pCXR FINDINGS: Heart: Prominent cardiac silhouette. Mediastinum/Vessels: Prominent central vessels. Lungs/Pleural space: Left lung base airspace consolidation. Bony thorax: No acute osseous abnormality. Life support devices: The endotracheal tube tip is obscured by hardware in the thoracic spine, but likely projects approximately 4 cm superior to the carlos manuel. IMPRESSION: Prominent cardiac silhouette. Left lung base airspace consolidation Hospitalist Physical Gen: NAD, Awake, Alert, HEENT: NCAT, EOMI, PERRL, OP Clear Neck: supple, no adenopathy, no thyromegaly, no JVD CVS/Heart: RRR, normal S1S2, pulses present bilaterally Chest/Lungs: diminished bs bilateral, Symmetrical chest expansion, good air entry bilaterally GI/Abdomen: soft, NTND, good bowel sounds, no guarding or rebound /Bladder: no suprapubic tenderness, no CVA or paraspinal tenderness Extermity/Skin: no c/c/e, no obvious rash MSK: no joint swelling Neuro: CN 2-12 grossly intact, no new focal deficits Psych: calm Subjective Date of service: 06/21/18 Principal diagnosis: Septic Shock (? LLL pneumonia); Ac on Ch hypoxic- hypercapnic Resp failure Interval history: Patient was seen and examined. Imaging, nursing note, chart, labs and old chart reviewed. No acute event O/n Pending placement Objective - Constitutional Vitals: Vital Signs - 12hr 06/20/18 06/21/18 06/21/18 22:25 06:00 08:21 Temperature 98.0 F Pulse Rate 69 106 H Pulse Rate [ 78 Anterior Bilateral Throughout] Respiratory 16 Rate Respiratory 16 Rate [Anterior Bilateral Throughout] Blood Pressure 129/64 O2 Sat by Pulse 96 91 Oximetry 06/21/18 06/21/18 08:23 08:33 Temperature Pulse Rate Pulse Rate [ 83 Anterior Bilateral Throughout] Respiratory Rate Respiratory 16 Rate [Anterior Bilateral Throughout] Blood Pressure O2 Sat by Pulse 96 Oximetry - Labs CBC & Chem 7: 06/18/18 05:01 06/18/18 05:01
[2018-06-21] MEDS: PREVACID SOLUTAB FEEDTUBE SCH (10:50)
[2018-06-21] MEDS: LIORESAL PO SCH ×2 (10:50→21:42)
[2018-06-21] MEDS: DELTASONE PO SCH (10:51)
[2018-06-21] MEDS: EFFEXOR PO SCH ×3 (10:51→17:48)
[2018-06-21] MEDS: SODIUM CHLORIDE FLUSH SYRINGE 10 ML IV SCH ×2 (10:53→21:42)
[2018-06-21] MEDS: BUSPAR PO SCH ×2 (10:54→21:42)
--- NOTE | 2018-06-21 14:37 | Progress Note ---
Assessment and Plan -Septic Shock suspected LLL pneumonia, SOFA score >2 -Acute on chronic combined( hypoxic-hypercapnic) respiratory failure -Severe AE COPD -AMS with Acute encephalopathy -Macrocytosis -GNR pneumonia, probably secondary to aspiration -Acute encephalaopthy( toxic, metabolic) -History of substance abuse -Thrombocytopenia( multifactorial) -Hypernatremia -Hyperchloremia Thrombocytopenia - continue BIPAP qhs with prn daytime use - continue scheduled duonebs bid - continue to taper prednisone - continue brovana & pulmicort - PT/OT to increase ambulation - continue to wean supplemental oxygen to keep O2 sats 90% - prn ABGs/CXR at this point - s/p empiric antibiotics for aspiration PNA - continue VTE prophylaxis - continue accuchecks with glycemic control for target glucose of 140-180 mg/dL - Influenza and pneumonia vaccination addressed per protocol Continue all supportive care Discharge planning Subjective Date of service: 06/21/18 Principal diagnosis: Septic Shock (? LLL pneumonia); Ac on Ch hypoxic- hypercapnic Resp failure Interval history: Patient is seen today for: Septic Shock suspected LLL pneumonia, SOFA score > 2; Acute on chronic combined( hypoxic-hypercapnic) respiratory failure s/p ETT MVS; Severe AE COPD; AMS with Acute encephalopathy; Macrocytosis Seen and examined at bedside; 24hour events reviewed; nursing and respiratory care staff consulted; no adverse overnight events reported to me; sitting in bed; less SOB; BIPAP qhs; denies acute chest pains or palpitations; No N/V/F/C Awake and alert, responsive and appropriate behavior Objective Vital Signs - 12hr 06/21/18 06/21/18 06/21/18 06:00 08:21 08:23 Temperature 98.0 F Pulse Rate 106 H Pulse Rate [ 78 Anterior Bilateral Throughout] Respiratory 16 Rate Respiratory 16 Rate [Anterior Bilateral Throughout] Blood Pressure 129/64 O2 Sat by Pulse 91 96 Oximetry 06/21/18 06/21/18 08:33 13:20 Temperature 98.6 F Pulse Rate 102 H Pulse Rate [ 83 Anterior Bilateral Throughout] Respiratory 20 Rate Respiratory 16 Rate [Anterior Bilateral Throughout] Blood Pressure 115/47 O2 Sat by Pulse 95 Oximetry Constitutional: no acute distress, other (on supplemetnal oxygen via NC, garcia facies) Eyes: non-icteric ENT: oropharynx moist Neck: supple, no lymphadenopathy, no JVD, other (large neck circumference) Effort: mildly labored Ascultation: Bilateral: diminished breath sounds, rales, rhonchi, other (prolonged exp phase) Percussion: Bilateral: not dull Cardiovascular: regular rate and rhythm Gastrointestinal: normoactive bowel sounds, soft, non-tender, non-distended Integumentary: normal Extremities: no cyanosis, no edema, pink and warm, pulses normal Neurologic: non-focal exam, pupils equal and round, CN II-XII normal, motor strength normal and Psychiatric: mood appropriate, affect normal CBC and BMP: 06/18/18 05:01 06/18/18 05:01 ABG, PT/INR, D-dimer: ABG POC ABG pH 7.384 (7.35-7.45) 06/05/18 04:10 POC ABG pCO2 56.3 (35-45) H 06/05/18 04:10 POC ABG pO2 61 (80-105) L 06/05/18 04:10 POC ABG HCO3 33.6 (22-26 mml/L) 06/05/18 04:10 POC ABG Total CO2 35 (23-27mmol/L) 06/05/18 04:10 POC ABG O2 Sat 90 06/05/18 04:10 PT/INR, D-dimer D-Dimer 1062.49 ng/mlDDU (0-234) H 05/28/18 13:13 Abnormal lab findings: Abnormal Labs 05/28/18 05/28/18 05/28/18 13:13 13:13 13:13 WBC Hgb 9.7 L MCV 77 L MCH 23 L MCHC 29 L RDW 19.2 H Plt Count Lymph % (Auto) 8.5 L [place] % (Auto) 11.3 H Lymph # 0.8 L [place] # 1.1 H Seg Neutrophils % 79.8 H Seg Neuts % (Manual) Lymphocytes % (Manual) Nucleated RBC % Seg Neutrophils # Seg Neutrophils # Man Lymphocytes # (Manual) D-Dimer 1062.49 H POC ABG pH POC ABG pCO2 POC ABG pO2 Sodium Potassium Chloride Carbon Dioxide BUN 24 H Creatinine 0.6 L Glucose POC Glucose Calcium Magnesium Total Protein Albumin 3.5 L Triglycerides Ur Specific [place] 05/28/18 05/28/18 05/28/18 13:22 14:50 16:05 WBC Hgb MCV MCH MCHC RDW Plt Count Lymph % (Auto) [place] % (Auto) Lymph # [place] # Seg Neutrophils % Seg Neuts % (Manual) Lymphocytes % (Manual) Nucleated RBC % Seg Neutrophils # Seg Neutrophils # Man Lymphocytes # (Manual) D-Dimer POC ABG pH 7.249 L 7.126 L POC ABG pCO2 68.9 H POC ABG pO2 77 L Sodium Potassium Chloride 109.1 H Carbon Dioxide BUN 22 H Creatinine 0.5 L Glucose POC Glucose Calcium 7.5 L Magnesium Total Protein Albumin Triglycerides Ur Specific [place] 05/28/18 05/28/18 05/28/18 17:57 18:48 22:47 WBC Hgb MCV MCH MCHC RDW Plt Count Lymph % (Auto) [place] % (Auto) Lymph # [place] # Seg Neutrophils % Seg Neuts % (Manual) Lymphocytes % (Manual) Nucleated RBC % Seg Neutrophils # Seg Neutrophils # Man Lymphocytes # (Manual) D-Dimer POC ABG pH 7.195 L 7.312 L POC ABG pCO2 57.5 H POC ABG pO2 57 L 73 L Sodium Potassium Chloride Carbon Dioxide BUN Creatinine Glucose POC Glucose Calcium Magnesium Total Protein Albumin Triglycerides Ur Specific [place] > 1.030 H 05/30/18 05/30/18 05/31/18 06:10 10:42 04:23 WBC Hgb MCV MCH MCHC RDW Plt Count Lymph % (Auto) [place] % (Auto) Lymph # [place] # Seg Neutrophils % Seg Neuts % (Manual) Lymphocytes % (Manual) Nucleated RBC % Seg Neutrophils # Seg Neutrophils # Man Lymphocytes # (Manual) D-Dimer POC ABG pH 7.214 L 7.253 L POC ABG pCO2 64.5 H 56.4 H POC ABG pO2 78 L 74 L Sodium Potassium Chloride Carbon Dioxide BUN Creatinine Glucose POC Glucose Calcium Magnesium Total Protein Albumin Triglycerides Ur Specific [place] 05/31/18 05/31/18 05/31/18 06:30 08:50 08:50 WBC Hgb 9.3 L MCV 78 L MCH 23 L MCHC 29 L RDW 19.8 H Plt Count 131 L Lymph % (Auto) [place] % (Auto) Lymph # [place] # Seg Neutrophils % Seg Neuts % (Manual) 98.0 H Lymphocytes % (Manual) 2.0 L Nucleated RBC % 1.0 H Seg Neutrophils # Seg Neutrophils # Man 8.4 H Lymphocytes # (Manual) 0.2 L D-Dimer POC ABG pH POC ABG pCO2 POC ABG pO2 Sodium 153 H D Potassium Chloride 117.4 H Carbon Dioxide BUN 18 H Creatinine 0.4 L Glucose 159 H POC Glucose 146 H Calcium 8.3 L Magnesium Total Protein Albumin Triglycerides Ur Specific [place] 06/01/18 06/01/18 06/01/18 00:11 03:32 05:50 WBC Hgb 9.8 L MCV 77 L MCH 23 L MCHC 29 L RDW 20.1 H Plt Count 122 L Lymph % (Auto) [place] % (Auto) Lymph # [place] # Seg Neutrophils % Seg Neuts % (Manual) Lymphocytes % (Manual) Nucleated RBC % Seg Neutrophils # Seg Neutrophils # Man Lymphocytes # (Manual) D-Dimer POC ABG pH 7.465 H POC ABG pCO2 POC ABG pO2 Sodium Potassium Chloride Carbon Dioxide BUN Creatinine Glucose POC Glucose 149 H Calcium Magnesium Total Protein Albumin Triglycerides Ur Specific [place] 06/01/18 06/01/18 06/01/18 05:50 05:50 05:51 WBC Hgb MCV MCH MCHC RDW Plt Count Lymph % (Auto) [place] % (Auto) Lymph # [place] # Seg Neutrophils % Seg Neuts % (Manual) Lymphocytes % (Manual) Nucleated RBC % Seg Neutrophils # Seg Neutrophils # Man Lymphocytes # (Manual) D-Dimer POC ABG pH POC ABG pCO2 POC ABG pO2 Sodium 152 H Potassium Chloride 113.7 H Carbon Dioxide BUN 18 H Creatinine 0.3 L Glucose 146 H POC Glucose 146 H Calcium Magnesium 2.40 H Total Protein Albumin Triglycerides 214 H Ur Specific [place] 06/01/18 06/01/18 06/01/18 10:40 11:52 12:06 WBC Hgb MCV MCH MCHC RDW Plt Count Lymph % (Auto) [place] % (Auto) Lymph # [place] # Seg Neutrophils % Seg Neuts % (Manual) Lymphocytes % (Manual) Nucleated RBC % Seg Neutrophils # Seg Neutrophils # Man Lymphocytes # (Manual) D-Dimer POC ABG pH POC ABG pCO2 48.4 H POC ABG pO2 Sodium Potassium Chloride Carbon Dioxide BUN Creatinine Glucose POC Glucose 147 H 138 H Calcium Magnesium Total Protein Albumin Triglycerides Ur Specific [place] 06/01/18 06/02/18 06/02/18 18:08 00:39 04:11 WBC Hgb MCV MCH MCHC RDW Plt Count Lymph % (Auto) [place] % (Auto) Lymph # [place] # Seg Neutrophils % Seg Neuts % (Manual) Lymphocytes % (Manual) Nucleated RBC % Seg Neutrophils # Seg Neutrophils # Man Lymphocytes # (Manual) D-Dimer POC ABG pH POC ABG pCO2 50.3 H POC ABG pO2 72 L Sodium Potassium Chloride Carbon Dioxide BUN Creatinine Glucose POC Glucose 156 H 156 H Calcium Magnesium Total Protein Albumin Triglycerides Ur Specific [place] 06/02/18 06/02/18 06/02/18 05:16 07:47 07:47 WBC Hgb 10.0 L MCV 77 L MCH 23 L MCHC 29 L RDW 18.8 H Plt Count 103 L Lymph % (Auto) [place] % (Auto) Lymph # [place] # Seg Neutrophils % Seg Neuts % (Manual) Lymphocytes % (Manual) Nucleated RBC % Seg Neutrophils # Seg Neutrophils # Man Lymphocytes # (Manual) D-Dimer POC ABG pH POC ABG pCO2 POC ABG pO2 Sodium 148 H Potassium Chloride 109.4 H Carbon Dioxide 32 H BUN 21 H Creatinine 0.3 L Glucose 137 H POC Glucose 150 H Calcium Magnesium Total Protein Albumin Triglycerides Ur Specific [place] 06/02/18 06/02/18 06/02/18 11:46 17:51 19:58 WBC Hgb MCV MCH MCHC RDW Plt Count Lymph % (Auto) [place] % (Auto) Lymph # [place] # Seg Neutrophils % Seg Neuts % (Manual) Lymphocytes % (Manual) Nucleated RBC % Seg Neutrophils # Seg Neutrophils # Man Lymphocytes # (Manual) D-Dimer POC ABG pH POC ABG pCO2 POC ABG pO2 Sodium Potassium Chloride Carbon Dioxide BUN Creatinine Glucose POC Glucose 150 H 135 H 131 H Calcium Magnesium Total Protein Albumin Triglycerides Ur Specific [place] 06/03/18 06/03/18 06/03/18 04:28 04:59 04:59 WBC Hgb MCV 76 L MCH 23 L MCHC RDW 19.1 H Plt Count 99 L Lymph % (Auto) [place] % (Auto) Lymph # [place] # Seg Neutrophils % Seg Neuts % (Manual) Lymphocytes % (Manual) Nucleated RBC % Seg Neutrophils # Seg Neutrophils # Man Lymphocytes # (Manual) D-Dimer POC ABG pH POC ABG pCO2 50.4 H POC ABG pO2 65 L Sodium Potassium Chloride Carbon Dioxide BUN 23 H Creatinine 0.3 L Glucose 167 H POC Glucose Calcium Magnesium Total Protein Albumin Triglycerides Ur Specific [place] 06/03/18 06/03/18 06/03/18 05:17 12:20 17:28 WBC Hgb MCV MCH MCHC RDW Plt Count Lymph % (Auto) [place] % (Auto) Lymph # [place] # Seg Neutrophils % Seg Neuts % (Manual) Lymphocytes % (Manual) Nucleated RBC % Seg Neutrophils # Seg Neutrophils # Man Lymphocytes # (Manual) D-Dimer POC ABG pH POC ABG pCO2 POC ABG pO2 Sodium Potassium Chloride Carbon Dioxide BUN Creatinine Glucose POC Glucose 153 H 155 H 135 H Calcium Magnesium Total Protein Albumin Triglycerides Ur Specific [place] 06/03/18 06/04/18 06/04/18 23:23 04:37 05:15 WBC Hgb MCV MCH MCHC RDW Plt Count Lymph % (Auto) [place] % (Auto) Lymph # [place] # Seg Neutrophils % Seg Neuts % (Manual) Lymphocytes % (Manual) Nucleated RBC % Seg Neutrophils # Seg Neutrophils # Man Lymphocytes # (Manual) D-Dimer POC ABG pH POC ABG pCO2 51.3 H POC ABG pO2 79 L Sodium Potassium Chloride Carbon Dioxide BUN Creatinine Glucose POC Glucose 145 H 140 H Calcium Magnesium Total Protein Albumin Triglycerides Ur Specific [place] 06/04/18 06/04/18 06/05/18 11:47 17:22 01:13 WBC Hgb MCV MCH MCHC RDW Plt Count Lymph % (Auto) [place] % (Auto) Lymph # [place] # Seg Neutrophils % Seg Neuts % (Manual) Lymphocytes % (Manual) Nucleated RBC % Seg Neutrophils # Seg Neutrophils # Man Lymphocytes # (Manual) D-Dimer POC ABG pH POC ABG pCO2 POC ABG pO2 Sodium Potassium Chloride Carbon Dioxide BUN Creatinine Glucose POC Glucose 158 H 131 H 137 H Calcium Magnesium Total Protein Albumin Triglycerides Ur Specific [place] 06/05/18 06/05/18 06/05/18 04:10 06:33 11:41 WBC Hgb MCV MCH MCHC RDW Plt Count Lymph % (Auto) [place] % (Auto) Lymph # [place] # Seg Neutrophils % Seg Neuts % (Manual) Lymphocytes % (Manual) Nucleated RBC % Seg Neutrophils # Seg Neutrophils # Man Lymphocytes # (Manual) D-Dimer POC ABG pH POC ABG pCO2 56.3 H POC ABG pO2 61 L Sodium Potassium Chloride Carbon Dioxide BUN Creatinine Glucose POC Glucose 136 H 150 H Calcium Magnesium Total Protein Albumin Triglycerides Ur Specific [place] 06/05/18 06/05/18 06/05/18 15:27 19:49 22:44 WBC Hgb MCV MCH MCHC RDW Plt Count Lymph % (Auto) [place] % (Auto) Lymph # [place] # Seg Neutrophils % Seg Neuts % (Manual) Lymphocytes % (Manual) Nucleated RBC % Seg Neutrophils # Seg Neutrophils # Man Lymphocytes # (Manual) D-Dimer POC ABG pH POC ABG pCO2 POC ABG pO2 Sodium Potassium Chloride Carbon Dioxide 36 H D BUN 25 H Creatinine 0.4 L Glucose 130 H POC Glucose 125 H 137 H Calcium Magnesium Total Protein Albumin Triglycerides Ur Specific [place] 06/06/18 06/07/18 06/07/18 12:51 18:24 23:45 WBC Hgb MCV MCH MCHC RDW Plt Count Lymph % (Auto) [place] % (Auto) Lymph # [place] # Seg Neutrophils % Seg Neuts % (Manual) Lymphocytes % (Manual) Nucleated RBC % Seg Neutrophils # Seg Neutrophils # Man Lymphocytes # (Manual) D-Dimer POC ABG pH POC ABG pCO2 POC ABG pO2 Sodium Potassium Chloride Carbon Dioxide BUN Creatinine Glucose POC Glucose 66 L 139 H 130 H Calcium Magnesium Total Protein Albumin Triglycerides Ur Specific [place] 06/08/18 06/08/18 06/08/18 03:37 03:37 06:24 WBC Hgb MCV 76 L MCH 24 L MCHC RDW 19.8 H Plt Count 103 L Lymph % (Auto) [place] % (Auto) Lymph # [place] # Seg Neutrophils % Seg Neuts % (Manual) Lymphocytes % (Manual) Nucleated RBC % Seg Neutrophils # Seg Neutrophils # Man Lymphocytes # (Manual) D-Dimer POC ABG pH POC ABG pCO2 POC ABG pO2 Sodium Potassium Chloride Carbon Dioxide BUN Creatinine 0.2 L Glucose 123 H POC Glucose 119 H Calcium 8.3 L Magnesium Total Protein Albumin Triglycerides Ur Specific [place] 06/08/18 06/09/18 06/10/18 23:26 16:38 00:39 WBC Hgb MCV MCH MCHC RDW Plt Count Lymph % (Auto) [place] % (Auto) Lymph # [place] # Seg Neutrophils % Seg Neuts % (Manual) Lymphocytes % (Manual) Nucleated RBC % Seg Neutrophils # Seg Neutrophils # Man Lymphocytes # (Manual) D-Dimer POC ABG pH POC ABG pCO2 POC ABG pO2 Sodium Potassium Chloride Carbon Dioxide BUN Creatinine Glucose POC Glucose 106 H 109 H 114 H Calcium Magnesium Total Protein Albumin Triglycerides Ur Specific [place] 06/10/18 06/10/18 06/11/18 09:47 09:47 00:05 WBC 16.9 H Hgb MCV 78 L MCH 23 L MCHC RDW 20.0 H Plt Count Lymph % (Auto) 9.1 L [place] % (Auto) 8.5 H Lymph # [place] # 1.4 H Seg Neutrophils % 81.8 H Seg Neuts % (Manual) Lymphocytes % (Manual) Nucleated RBC % Seg Neutrophils # 13.9 H Seg Neutrophils # Man Lymphocytes # (Manual) D-Dimer POC ABG pH POC ABG pCO2 POC ABG pO2 Sodium Potassium Chloride Carbon Dioxide BUN Creatinine 0.3 L Glucose 110 H POC Glucose 110 H Calcium Magnesium Total Protein 5.9 L Albumin 3.5 L Triglycerides Ur Specific [place] 06/11/18 06/11/18 06/12/18 06:08 06:08 00:19 WBC 15.7 H 20.3 H Hgb MCV 77 L 77 L MCH 24 L 23 L MCHC RDW 20.3 H 20.7 H Plt Count Lymph % (Auto) 8.9 L [place] % (Auto) Lymph # [place] # 1.0 H Seg Neutrophils % 83.7 H Seg Neuts % (Manual) 93.0 H Lymphocytes % (Manual) 4.0 L Nucleated RBC % Seg Neutrophils # 13.2 H Seg Neutrophils # Man 18.9 H Lymphocytes # (Manual) 0.8 L D-Dimer POC ABG pH POC ABG pCO2 POC ABG pO2 Sodium Potassium 3.3 L Chloride Carbon Dioxide BUN Creatinine 0.4 L Glucose POC Glucose Calcium Magnesium Total Protein Albumin Triglycerides Ur Specific [place] 06/13/18 06/13/18 06/15/18 05:00 05:00 05:40 WBC 18.0 H Hgb 10.0 L MCV 78 L 78 L MCH 23 L 24 L MCHC RDW 21.8 H 22.6 H Plt Count 116 L Lymph % (Auto) 7.2 L [place] % (Auto) 7.7 H Lymph # [place] # 1.1 H Seg Neutrophils % 86.3 H 72.5 H Seg Neuts % (Manual) Lymphocytes % (Manual) Nucleated RBC % Seg Neutrophils # 15.6 H Seg Neutrophils # Man Lymphocytes # (Manual) D-Dimer POC ABG pH POC ABG pCO2 POC ABG pO2 Sodium Potassium 3.5 L Chloride Carbon Dioxide BUN 20 H Creatinine 0.5 L Glucose 138 H POC Glucose Calcium Magnesium Total Protein Albumin Triglycerides Ur Specific [place] 06/15/18 06/18/18 06/18/18 05:40 05:01 05:01 WBC Hgb MCV MCH 25 L MCHC RDW 23.2 H Plt Count 120 L Lymph % (Auto) [place] % (Auto) Lymph # [place] # Seg Neutrophils % Seg Neuts % (Manual) Lymphocytes % (Manual) Nucleated RBC % Seg Neutrophils # Seg Neutrophils # Man Lymphocytes # (Manual) D-Dimer POC ABG pH POC ABG pCO2 POC ABG pO2 Sodium Potassium Chloride Carbon Dioxide BUN Creatinine 0.4 L 0.4 L Glucose POC Glucose Calcium Magnesium Total Protein 5.8 L Albumin 3.6 L Triglycerides Ur Specific [place] 06/19/18 20:50 WBC Hgb MCV MCH MCHC RDW Plt Count Lymph % (Auto) [place] % (Auto) Lymph # [place] # Seg Neutrophils % Seg Neuts % (Manual) Lymphocytes % (Manual) Nucleated RBC % Seg Neutrophils # Seg Neutrophils # Man Lymphocytes # (Manual) D-Dimer POC ABG pH POC ABG pCO2 POC ABG pO2 Sodium Potassium Chloride Carbon Dioxide BUN Creatinine Glucose POC Glucose 110 H Calcium Magnesium Total Protein Albumin Triglycerides Ur Specific [place] Allied health notes reviewed: nursing
[2018-06-21] MEDS: LOVENOX SUB-Q SCH (21:42)
[2018-06-22] MEDS: NORCO 5/325 PO PRN ×3 (00:02→22:04)
[2018-06-22] MEDS: BROVANA NEBU IH SCH ×2 (07:56→20:28)
[2018-06-22] MEDS: PULMICORT IH SCH ×2 (07:56→20:28)
[2018-06-22] MEDS: DUONEB *Not for PRN Use IH SCH ×2 (07:57→20:29)
[2018-06-22] MEDS: EFFEXOR PO SCH ×3 (08:34→17:02)
[2018-06-22] MEDS: PREVACID SOLUTAB FEEDTUBE SCH (10:38)
[2018-06-22] MEDS: LIORESAL PO SCH ×2 (10:38→22:05)
[2018-06-22] MEDS: BUSPAR PO SCH ×2 (10:39→22:04)
[2018-06-22] MEDS: DELTASONE PO SCH (10:39)
[2018-06-22] MEDS: SODIUM CHLORIDE FLUSH SYRINGE 10 ML IV SCH ×2 (10:40→22:05)
--- NOTE | 2018-06-22 11:08 | Discharge Summary ---
Providers - Providers Date of Admission: 05/28/18 19:14 Date of discharge: 06/23/18 Attending physician: HELIO MILLS 05/28/18 22:46 Consult to Dietitian/Nutrition [CONS] Routine Physician Instructions: Reason For Exam: Reason for Consult: Write/Manage Tube Feeding Consult to Dietitian/Nutrition [CONS] Routine Physician Instructions: Assess nutrtn needs, initiate, modify, manage TF Reason For Exam: Reason for Consult: Write/Manage Tube Feeding Reason for Consult: Write/Manage Tube Feeding 05/29/18 08:07 Consult to Physician [CONS] Routine Comment: Consulting Provider: JUN HUNTER Physician Instructions: Reason For Exam: LLL consolidation, Intubated 05/29/18 08:30 PICC Line Insertion [Consult to PICC Line RN] [CONS] Stat Reason For Exam: Levophed drip Type Line:: PICC 05/29/18 13:17 Consult to Physician [CONS] Urgent Comment: Consulting Provider: PARESH GAINES Physician Instructions: Reason For Exam: Acute respiratory Failure 06/08/18 10:12 Consult to Mental Health [CONS] Routine Reason For Exam: medication management Place consult to:: mental health Notified:: Juve Phone number called:: [phone] Was contact made?: Yes If yes, spoke with:: Juve Time called:: 07:47 Physical Therapy Evaluation and Treat [CONS] Routine Comment: Reason For Exam: debility 06/08/18 10:13 Occupational Therapy Evaluate and Treat [CONS] Routine Comment: Reason For Exam: deility 06/16/18 08:51 Occupational Therapy Evaluate and Treat [CONS] Routine Comment: Reason For Exam: fall Physical Therapy Evaluation and Treat [CONS] Routine Comment: Reason For Exam: Fall Mode of Transport?: Wheelchair Weight bearing status?: Partial wt bearing Primary care physician: FLORESITA MOSELEY Hospitalization Condition: Stable Hospital course: Brief History Patient is a 58 yo woman with a history of chronic hypoxic respiratory failure due to End stage COPD on home O2, CAD s/p PCI with bare metal stent, cps with recurrent admission for narcotic overdose, 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 According to chart, pt has not been using her O2 and started hallucinating. She was intubated in the ED. She was also hypotensive in the ED and started on Vasopressor/Levophed. Being treated for PNA, on abx. Weaned off from vent, transferred to floor. Then waited on SNF placement but denied as she did not participate in active PT. Patient will now discharge to home with HH. * CTA chest IMPRESSION: 1. Study degraded by artifact created by retained hardware in the thoracic spine and by motion artifact. 2. No evidence of central pulmonary artery emboli. However, segmental pulmonary artery emboli could be missed or overcalled due to significant artifact. 3. Complete consolidation left lower lobe with air bronchograms and volume loss consistent with atelectasis. There appears to be opacification of a portion of the left lower lobe bronchus. 4. Tip of the endotracheal tube projected in satisfactory position. 5. Cardiomegaly. 6. IVC filter. 7. Prominent kyphosis of the thoracic spine with extensive instrumentation with retained hardware. * Abdominal 1 view XRAY IMPRESSION: Nasogastric tube is terminating in the stomach. Mild degree left pleural effusion * pCXR FINDINGS: Heart: Prominent cardiac silhouette. Mediastinum/Vessels: Prominent central vessels. Lungs/Pleural space: Left lung base airspace consolidation. Bony thorax: No acute osseous abnormality. Life support devices: The endotracheal tube tip is obscured by hardware in the thoracic spine, but likely projects approximately 4 cm superior to the carlos manuel. IMPRESSION: Prominent cardiac silhouette. Left lung base airspace consolidation Discharge diagnosis and management: -AMS with Acute encephalopathy, significant improvement from admission prior records show a long history of similar presentations and PCP toxicity: ordered UDS, history of substance abuse, psych disorder, psych was following, will continue outpt followup --Acute thrombocytopenia: negative for HIT, monitored CBC -Acute on chronic combined respiratory failure s/p ETT MV, s/p extubated, now on 3 liters: [employer]ian was following -Severe AE COPD: treated with iv steriods, abx, nebs around the clock. stable on discharge -Hypotension due to circulatory shock possible septic shock from LLL pneumonia: resolved, off Vasopressor -Septic Shock suspected LLL Pseudomonas/E.coli pneumonia: -treated with ivf, abx, ID following, trachea aspirate growing Gram negative==> PSA resistant to Aztreonam/zosyn/cefepime/fortaz but sensitive to cipro/gent/levaquin/tobramycin; E. coli has not resistant, changed antibiotics to Levaquin and Gentamicin. OFF Vasopressor now -DVT prophylaxis: sq Lovenox -Disposition: Home with full code Hospitalist Physical Gen: NAD, Awake, Alert, HEENT: NCAT, EOMI, PERRL, OP Clear Neck: supple, no adenopathy, no thyromegaly, no JVD CVS/Heart: RRR, normal S1S2, pulses present bilaterally Chest/Lungs: diminished bs bilateral, Symmetrical chest expansion, good air entry bilaterally GI/Abdomen: soft, NTND, good bowel sounds, no guarding or rebound /Bladder: no suprapubic tenderness, no CVA or paraspinal tenderness Extermity/Skin: no c/c/e, no obvious rash MSK: no joint swelling Neuro: CN 2-12 grossly intact, no new focal deficits Psych: calm Disposition: [id number]/[id number] HOME UNDER HOME [facility] Time spent for discharge: 34 minutes Core Measure Documentation - Palliative Care Palliative Care/ Comfort Measures: Not Applicable - Core Measures Any of the following diagnoses?: none Exam - Constitutional Vitals: Temp Pulse Resp BP Pulse Ox 97.7 F 78 20 142/65 94 06/22/18 05:26 06/22/18 08:06 06/22/18 10:38 06/22/18 05:26 06/22/18 07:56 Plan Activity: advance as tolerated Weight Bearing Status: Weight Bear as Tolerated Follow up with: FLORESITA MOSELEY MD [Primary Care Provider] - 3-5 Days Prescriptions: HYDROcodone/APAP 5-325 [Sibley 5-325 mg TAB] 1 each PO Q4H PRN #15 tablet PRN Reason: Pain, Moderate (4-6) ALPRAZolam [Xanax TAB] 0.25 mg PO Q8H PRN #15 tablet PRN Reason: Anxiety
--- NOTE | 2018-06-22 18:40 | Progress Note ---
Assessment and Plan Patient awake and resting on 3 litres O2.O2 saturation 92%.No acute respiratory distress.Patient sitting up in the bed. - Patient Problems (1) COPD (chronic obstructive pulmonary disease) Current Visit: Yes Status: Acute Qualifiers: COPD type: unspecified COPD Qualified Code(s): J44.9 - Chronic obstructive pulmonary disease, unspecified Plan to address problem: O2 3 litres via nasal canula Albuterol/atrovent aerosol treatments q 6 hours. Continue PO prednisone. Patient is on S/C Lovenox. Patient is on Prevacid. (2) Hypercapnic respiratory failure Current Visit: Yes Status: Acute Plan to address problem: BIPAP as per protocol. O2 3 litres O2 when she is not on BIPAP. Albuterol/atrovent aerosol treatments q 6 hours. Continue PO prednisone. Patient is on s/C lovenox. Patient is on Prevacid (3) Encephalopathy Current Visit: Yes Status: Acute Plan to address problem: Management as per primary care. Subjective Date of service: 06/22/18 Principal diagnosis: Septic Shock (? LLL pneumonia); Ac on Ch hypoxic- hypercapnic Resp failure Interval history: Patient awake and resting on 3 litres O2.O2 saturation 92%.No acute respiratory distress.Sitting up in the bed. Objective Vital Signs - 12hr 06/22/18 06/22/18 06/22/18 07:56 08:06 10:38 Temperature Pulse Rate Pulse Rate [ 74 78 Anterior Bilateral Throughout] Respiratory 20 Rate Respiratory 20 20 Rate [Anterior Bilateral Throughout] Blood Pressure O2 Sat by Pulse 94 Oximetry 06/22/18 12:13 Temperature 98.6 F Pulse Rate 93 H Pulse Rate [ Anterior Bilateral Throughout] Respiratory 20 Rate Respiratory Rate [Anterior Bilateral Throughout] Blood Pressure 141/65 O2 Sat by Pulse 92 Oximetry Constitutional: no acute distress, other (on supplemetnal oxygen via NC, garcia facies) Eyes: non-icteric ENT: oropharynx moist Neck: supple, no lymphadenopathy, no JVD, other (large neck circumference) Effort: mildly labored Ascultation: Bilateral: diminished breath sounds, rales, rhonchi, other (prolonged exp phase) Percussion: Bilateral: not dull Cardiovascular: regular rate and rhythm Gastrointestinal: normoactive bowel sounds, soft, non-tender, non-distended Integumentary: normal Extremities: no cyanosis, no edema, pink and warm, pulses normal Neurologic: non-focal exam, pupils equal and round, CN II-XII normal, motor strength normal and Psychiatric: mood appropriate, affect normal CBC and BMP: 06/18/18 05:01 06/18/18 05:01 ABG, PT/INR, D-dimer: ABG POC ABG pH 7.384 (7.35-7.45) 06/05/18 04:10 POC ABG pCO2 56.3 (35-45) H 06/05/18 04:10 POC ABG pO2 61 (80-105) L 06/05/18 04:10 POC ABG HCO3 33.6 (22-26 mml/L) 06/05/18 04:10 POC ABG Total CO2 35 (23-27mmol/L) 06/05/18 04:10 POC ABG O2 Sat 90 06/05/18 04:10 PT/INR, D-dimer D-Dimer 1062.49 ng/mlDDU (0-234) H 05/28/18 13:13 Abnormal lab findings: Abnormal Labs 05/28/18 05/28/18 05/28/18 13:13 13:13 13:13 WBC Hgb 9.7 L MCV 77 L MCH 23 L MCHC 29 L RDW 19.2 H Plt Count Lymph % (Auto) 8.5 L Bryan % (Auto) 11.3 H Lymph # 0.8 L Bryan # 1.1 H Seg Neutrophils % 79.8 H Seg Neuts % (Manual) Lymphocytes % (Manual) Nucleated RBC % Seg Neutrophils # Seg Neutrophils # Man Lymphocytes # (Manual) D-Dimer 1062.49 H POC ABG pH POC ABG pCO2 POC ABG pO2 Sodium Potassium Chloride Carbon Dioxide BUN 24 H Creatinine 0.6 L Glucose POC Glucose Calcium Magnesium Total Protein Albumin 3.5 L Triglycerides Ur Specific [place] 05/28/18 05/28/18 05/28/18 13:22 14:50 16:05 WBC Hgb MCV MCH MCHC RDW Plt Count Lymph % (Auto) Bryan % (Auto) Lymph # Bryan # Seg Neutrophils % Seg Neuts % (Manual) Lymphocytes % (Manual) Nucleated RBC % Seg Neutrophils # Seg Neutrophils # Man Lymphocytes # (Manual) D-Dimer POC ABG pH 7.249 L 7.126 L POC ABG pCO2 68.9 H POC ABG pO2 77 L Sodium Potassium Chloride 109.1 H Carbon Dioxide BUN 22 H Creatinine 0.5 L Glucose POC Glucose Calcium 7.5 L Magnesium Total Protein Albumin Triglycerides Ur Specific [place] 05/28/18 05/28/18 05/28/18 17:57 18:48 22:47 WBC Hgb MCV MCH MCHC RDW Plt Count Lymph % (Auto) Bryan % (Auto) Lymph # Bryan # Seg Neutrophils % Seg Neuts % (Manual) Lymphocytes % (Manual) Nucleated RBC % Seg Neutrophils # Seg Neutrophils # Man Lymphocytes # (Manual) D-Dimer POC ABG pH 7.195 L 7.312 L POC ABG pCO2 57.5 H POC ABG pO2 57 L 73 L Sodium Potassium Chloride Carbon Dioxide BUN Creatinine Glucose POC Glucose Calcium Magnesium Total Protein Albumin Triglycerides Ur Specific [place] > 1.030 H 05/30/18 05/30/18 05/31/18 06:10 10:42 04:23 WBC Hgb MCV MCH MCHC RDW Plt Count Lymph % (Auto) Bryan % (Auto) Lymph # [place] # Seg Neutrophils % Seg Neuts % (Manual) Lymphocytes % (Manual) Nucleated RBC % Seg Neutrophils # Seg Neutrophils # Man Lymphocytes # (Manual) D-Dimer POC ABG pH 7.214 L 7.253 L POC ABG pCO2 64.5 H 56.4 H POC ABG pO2 78 L 74 L Sodium Potassium Chloride Carbon Dioxide BUN Creatinine Glucose POC Glucose Calcium Magnesium Total Protein Albumin Triglycerides Ur Specific [place] 05/31/18 05/31/18 05/31/18 06:30 08:50 08:50 WBC Hgb 9.3 L MCV 78 L MCH 23 L MCHC 29 L RDW 19.8 H Plt Count 131 L Lymph % (Auto) [place] % (Auto) Lymph # [place] # Seg Neutrophils % Seg Neuts % (Manual) 98.0 H Lymphocytes % (Manual) 2.0 L Nucleated RBC % 1.0 H Seg Neutrophils # Seg Neutrophils # Man 8.4 H Lymphocytes # (Manual) 0.2 L D-Dimer POC ABG pH POC ABG pCO2 POC ABG pO2 Sodium 153 H D Potassium Chloride 117.4 H Carbon Dioxide BUN 18 H Creatinine 0.4 L Glucose 159 H POC Glucose 146 H Calcium 8.3 L Magnesium Total Protein Albumin Triglycerides Ur Specific [place] 06/01/18 06/01/18 06/01/18 00:11 03:32 05:50 WBC Hgb 9.8 L MCV 77 L MCH 23 L MCHC 29 L RDW 20.1 H Plt Count 122 L Lymph % (Auto) Bryan % (Auto) Lymph # [place] # Seg Neutrophils % Seg Neuts % (Manual) Lymphocytes % (Manual) Nucleated RBC % Seg Neutrophils # Seg Neutrophils # Man Lymphocytes # (Manual) D-Dimer POC ABG pH 7.465 H POC ABG pCO2 POC ABG pO2 Sodium Potassium Chloride Carbon Dioxide BUN Creatinine Glucose POC Glucose 149 H Calcium Magnesium Total Protein Albumin Triglycerides Ur Specific [place] 06/01/18 06/01/18 06/01/18 05:50 05:50 05:51 WBC Hgb MCV MCH MCHC RDW Plt Count Lymph % (Auto) [place] % (Auto) Lymph # [place] # Seg Neutrophils % Seg Neuts % (Manual) Lymphocytes % (Manual) Nucleated RBC % Seg Neutrophils # Seg Neutrophils # Man Lymphocytes # (Manual) D-Dimer POC ABG pH POC ABG pCO2 POC ABG pO2 Sodium 152 H Potassium Chloride 113.7 H Carbon Dioxide BUN 18 H Creatinine 0.3 L Glucose 146 H POC Glucose 146 H Calcium Magnesium 2.40 H Total Protein Albumin Triglycerides 214 H Ur Specific [place] 06/01/18 06/01/18 06/01/18 10:40 11:52 12:06 WBC Hgb MCV MCH MCHC RDW Plt Count Lymph % (Auto) [place] % (Auto) Lymph # [place] # Seg Neutrophils % Seg Neuts % (Manual) Lymphocytes % (Manual) Nucleated RBC % Seg Neutrophils # Seg Neutrophils # Man Lymphocytes # (Manual) D-Dimer POC ABG pH POC ABG pCO2 48.4 H POC ABG pO2 Sodium Potassium Chloride Carbon Dioxide BUN Creatinine Glucose POC Glucose 147 H 138 H Calcium Magnesium Total Protein Albumin Triglycerides Ur Specific [place] 06/01/18 06/02/18 06/02/18 18:08 00:39 04:11 WBC Hgb MCV MCH MCHC RDW Plt Count Lymph % (Auto) [place] % (Auto) Lymph # [place] # Seg Neutrophils % Seg Neuts % (Manual) Lymphocytes % (Manual) Nucleated RBC % Seg Neutrophils # Seg Neutrophils # Man Lymphocytes # (Manual) D-Dimer POC ABG pH POC ABG pCO2 50.3 H POC ABG pO2 72 L Sodium Potassium Chloride Carbon Dioxide BUN Creatinine Glucose POC Glucose 156 H 156 H Calcium Magnesium Total Protein Albumin Triglycerides Ur Specific [place] 06/02/18 06/02/1806/02/19 05:16 07:47 07:47 WBC Hgb 10.0 L MCV 77 L MCH 23 L MCHC 29 L RDW 18.8 H Plt Count 103 L Lymph % (Auto) [place] % (Auto) Lymph # [place] # Seg Neutrophils % Seg Neuts % (Manual) Lymphocytes % (Manual) Nucleated RBC % Seg Neutrophils # Seg Neutrophils # Man Lymphocytes # (Manual) D-Dimer POC ABG pH POC ABG pCO2 POC ABG pO2 Sodium 148 H Potassium Chloride 109.4 H Carbon Dioxide 32 H BUN 21 H Creatinine 0.3 L Glucose 137 H POC Glucose 150 H Calcium Magnesium Total Protein Albumin Triglycerides Ur Specific [place] 06/02/18 06/02/18 06/02/18 11:46 17:51 19:58 WBC Hgb MCV MCH MCHC RDW Plt Count Lymph % (Auto) [place] % (Auto) Lymph # [place] # Seg Neutrophils % Seg Neuts % (Manual) Lymphocytes % (Manual) Nucleated RBC % Seg Neutrophils # Seg Neutrophils # Man Lymphocytes # (Manual) D-Dimer POC ABG pH POC ABG pCO2 POC ABG pO2 Sodium Potassium Chloride Carbon Dioxide BUN Creatinine Glucose POC Glucose 150 H 135 H 131 H Calcium Magnesium Total Protein Albumin Triglycerides Ur Specific [place] 06/03/18 06/03/18 06/03/18 04:28 04:59 04:59 WBC Hgb MCV 76 L MCH 23 L MCHC RDW 19.1 H Plt Count 99 L Lymph % (Auto) [place] % (Auto) Lymph # [place] # Seg Neutrophils % Seg Neuts % (Manual) Lymphocytes % (Manual) Nucleated RBC % Seg Neutrophils # Seg Neutrophils # Man Lymphocytes # (Manual) D-Dimer POC ABG pH POC ABG pCO2 50.4 H POC ABG pO2 65 L Sodium Potassium Chloride Carbon Dioxide BUN 23 H Creatinine 0.3 L Glucose 167 H POC Glucose Calcium Magnesium Total Protein Albumin Triglycerides Ur Specific [place] 06/03/18 06/03/18 06/03/18 05:17 12:20 17:28 WBC Hgb MCV MCH MCHC RDW Plt Count Lymph % (Auto) [place] % (Auto) Lymph # [place] # Seg Neutrophils % Seg Neuts % (Manual) Lymphocytes % (Manual) Nucleated RBC % Seg Neutrophils # Seg Neutrophils # Man Lymphocytes # (Manual) D-Dimer POC ABG pH POC ABG pCO2 POC ABG pO2 Sodium Potassium Chloride Carbon Dioxide BUN Creatinine Glucose POC Glucose 153 H 155 H 135 H Calcium Magnesium Total Protein Albumin Triglycerides Ur Specific [place] 06/03/18 06/04/18 06/04/18 23:23 04:37 05:15 WBC Hgb MCV MCH MCHC RDW Plt Count Lymph % (Auto) [place] % (Auto) Lymph # [place] # Seg Neutrophils % Seg Neuts % (Manual) Lymphocytes % (Manual) Nucleated RBC % Seg Neutrophils # Seg Neutrophils # Man Lymphocytes # (Manual) D-Dimer POC ABG pH POC ABG pCO2 51.3 H POC ABG pO2 79 L Sodium Potassium Chloride Carbon Dioxide BUN Creatinine Glucose POC Glucose 145 H 140 H Calcium Magnesium Total Protein Albumin Triglycerides Ur Specific [place] 06/04/18 06/04/18 06/05/18 11:47 17:22 01:13 WBC Hgb MCV MCH MCHC RDW Plt Count Lymph % (Auto) [place] % (Auto) Lymph # [place] # Seg Neutrophils % Seg Neuts % (Manual) Lymphocytes % (Manual) Nucleated RBC % Seg Neutrophils # Seg Neutrophils # Man Lymphocytes # (Manual) D-Dimer POC ABG pH POC ABG pCO2 POC ABG pO2 Sodium Potassium Chloride Carbon Dioxide BUN Creatinine Glucose POC Glucose 158 H 131 H 137 H Calcium Magnesium Total Protein Albumin Triglycerides Ur Specific [place] 06/05/18 06/05/18 06/05/18 04:10 06:33 11:41 WBC Hgb MCV MCH MCHC RDW Plt Count Lymph % (Auto) [place] % (Auto) Lymph # [place] # Seg Neutrophils % Seg Neuts % (Manual) Lymphocytes % (Manual) Nucleated RBC % Seg Neutrophils # Seg Neutrophils # Man Lymphocytes # (Manual) D-Dimer POC ABG pH POC ABG pCO2 56.3 H POC ABG pO2 61 L Sodium Potassium Chloride Carbon Dioxide BUN Creatinine Glucose POC Glucose 136 H 150 H Calcium Magnesium Total Protein Albumin Triglycerides Ur Specific [place] 06/05/18 06/05/18 06/05/18 15:27 19:49 22:44 WBC Hgb MCV MCH MCHC RDW Plt Count Lymph % (Auto) [place] % (Auto) Lymph # [place] # Seg Neutrophils % Seg Neuts % (Manual) Lymphocytes % (Manual) Nucleated RBC % Seg Neutrophils # Seg Neutrophils # Man Lymphocytes # (Manual) D-Dimer POC ABG pH POC ABG pCO2 POC ABG pO2 Sodium Potassium Chloride Carbon Dioxide 36 H D BUN 25 H Creatinine 0.4 L Glucose 130 H POC Glucose 125 H 137 H Calcium Magnesium Total Protein Albumin Triglycerides Ur Specific [place] 06/06/18 06/07/18 06/07/18 12:51 18:24 23:45 WBC Hgb MCV MCH MCHC RDW Plt Count Lymph % (Auto) [place] % (Auto) Lymph # [place] # Seg Neutrophils % Seg Neuts % (Manual) Lymphocytes % (Manual) Nucleated RBC % Seg Neutrophils # Seg Neutrophils # Man Lymphocytes # (Manual) D-Dimer POC ABG pH POC ABG pCO2 POC ABG pO2 Sodium Potassium Chloride Carbon Dioxide BUN Creatinine Glucose POC Glucose 66 L 139 H 130 H Calcium Magnesium Total Protein Albumin Triglycerides Ur Specific [place] 06/08/18 06/08/18 06/08/18 03:37 03:37 06:24 WBC Hgb MCV 76 L MCH 24 L MCHC RDW 19.8 H Plt Count 103 L Lymph % (Auto) [place] % (Auto) Lymph # [place] # Seg Neutrophils % Seg Neuts % (Manual) Lymphocytes % (Manual) Nucleated RBC % Seg Neutrophils # Seg Neutrophils # Man Lymphocytes # (Manual) D-Dimer POC ABG pH POC ABG pCO2 POC ABG pO2 Sodium Potassium Chloride Carbon Dioxide BUN Creatinine 0.2 L Glucose 123 H POC Glucose 119 H Calcium 8.3 L Magnesium Total Protein Albumin Triglycerides Ur Specific [place] 06/08/18 06/09/18 06/10/18 23:26 16:38 00:39 WBC Hgb MCV MCH MCHC RDW Plt Count Lymph % (Auto) [place] % (Auto) Lymph # [place] # Seg Neutrophils % Seg Neuts % (Manual) Lymphocytes % (Manual) Nucleated RBC % Seg Neutrophils # Seg Neutrophils # Man Lymphocytes # (Manual) D-Dimer POC ABG pH POC ABG pCO2 POC ABG pO2 Sodium Potassium Chloride Carbon Dioxide BUN Creatinine Glucose POC Glucose 106 H 109 H 114 H Calcium Magnesium Total Protein Albumin Triglycerides Ur Specific [place] 06/10/18 06/10/18 06/11/18 09:47 09:47 00:05 WBC 16.9 H Hgb MCV 78 L MCH 23 L MCHC RDW 20.0 H Plt Count Lymph % (Auto) 9.1 L [place] % (Auto) 8.5 H Lymph # Bryan # 1.4 H Seg Neutrophils % 81.8 H Seg Neuts % (Manual) Lymphocytes % (Manual) Nucleated RBC % Seg Neutrophils # 13.9 H Seg Neutrophils # Man Lymphocytes # (Manual) D-Dimer POC ABG pH POC ABG pCO2 POC ABG pO2 Sodium Potassium Chloride Carbon Dioxide BUN Creatinine 0.3 L Glucose 110 H POC Glucose 110 H Calcium Magnesium Total Protein 5.9 L Albumin 3.5 L Triglycerides Ur Specific [place] 06/11/18 06/11/18 06/12/18 06:08 06:08 00:19 WBC 15.7 H 20.3 H Hgb MCV 77 L 77 L MCH 24 L 23 L MCHC RDW 20.3 H 20.7 H Plt Count Lymph % (Auto) 8.9 L [place] % (Auto) Lymph # [place] # 1.0 H Seg Neutrophils % 83.7 H Seg Neuts % (Manual) 93.0 H Lymphocytes % (Manual) 4.0 L Nucleated RBC % Seg Neutrophils # 13.2 H Seg Neutrophils # Man 18.9 H Lymphocytes # (Manual) 0.8 L D-Dimer POC ABG pH POC ABG pCO2 POC ABG pO2 Sodium Potassium 3.3 L Chloride Carbon Dioxide BUN Creatinine 0.4 L Glucose POC Glucose Calcium Magnesium Total Protein Albumin Triglycerides Ur Specific [place] 06/13/18 06/13/18 06/15/18 05:00 05:00 05:40 WBC 18.0 H Hgb 10.0 L MCV 78 L 78 L MCH 23 L 24 L MCHC RDW 21.8 H 22.6 H Plt Count 116 L Lymph % (Auto) 7.2 L [place] % (Auto) 7.7 H Lymph # Bryan # 1.1 H Seg Neutrophils % 86.3 H 72.5 H Seg Neuts % (Manual) Lymphocytes % (Manual) Nucleated RBC % Seg Neutrophils # 15.6 H Seg Neutrophils # Man Lymphocytes # (Manual) D-Dimer POC ABG pH POC ABG pCO2 POC ABG pO2 Sodium Potassium 3.5 L Chloride Carbon Dioxide BUN 20 H Creatinine 0.5 L Glucose 138 H POC Glucose Calcium Magnesium Total Protein Albumin Triglycerides Ur Specific [place] 06/15/18 06/18/18 06/18/18 05:40 05:01 05:01 WBC Hgb MCV MCH 25 L MCHC RDW 23.2 H Plt Count 120 L Lymph % (Auto) [place] % (Auto) Lymph # [place] # Seg Neutrophils % Seg Neuts % (Manual) Lymphocytes % (Manual) Nucleated RBC % Seg Neutrophils # Seg Neutrophils # Man Lymphocytes # (Manual) D-Dimer POC ABG pH POC ABG pCO2 POC ABG pO2 Sodium Potassium Chloride Carbon Dioxide BUN Creatinine 0.4 L 0.4 L Glucose POC Glucose Calcium Magnesium Total Protein 5.8 L Albumin 3.6 L Triglycerides Ur Specific [place] 06/19/18 20:50 WBC Hgb MCV MCH MCHC RDW Plt Count Lymph % (Auto) [place] % (Auto) Lymph # [place] # Seg Neutrophils % Seg Neuts % (Manual) Lymphocytes % (Manual) Nucleated RBC % Seg Neutrophils # Seg Neutrophils # Man Lymphocytes # (Manual) D-Dimer POC ABG pH POC ABG pCO2 POC ABG pO2 Sodium Potassium Chloride Carbon Dioxide BUN Creatinine Glucose POC Glucose 110 H Calcium Magnesium Total Protein Albumin Triglycerides Ur Specific [place] Allied health notes reviewed: nursing
[2018-06-22] MEDS: LOVENOX SUB-Q SCH (22:05)
[2018-06-23] MEDS: EFFEXOR PO SCH ×2 (08:34→12:08)
[2018-06-23] MEDS: NORCO 5/325 PO PRN ×2 (08:37→12:45)
[2018-06-23] MEDS: DUONEB *Not for PRN Use IH SCH (09:36)
[2018-06-23] MEDS: BROVANA NEBU IH SCH (09:36)
[2018-06-23] MEDS: PULMICORT IH SCH (09:36)
[2018-06-23] MEDS: BUSPAR PO SCH (10:38)
[2018-06-23] MEDS: PREVACID SOLUTAB FEEDTUBE SCH (10:38)
[2018-06-23] MEDS: DELTASONE PO SCH (10:39)
[2018-06-23] MEDS: LIORESAL PO SCH (10:39)
[2018-06-23] MEDS: SODIUM CHLORIDE FLUSH SYRINGE 10 ML IV SCH (10:40)
--- NOTE | 2018-06-23 11:49 | Progress Note ---
Assessment and Plan -AMS with Acute encephalopathy, significant improvement from admission prior records show a long history of similar presentations and PCP toxicity: ordered UDS, history of substance abuse, psych disorder, psych following --Acute thrombocytopenia: negative for HIT, monitor CBC -Acute on chronic combined respiratory failure s/p ETT MV, s/p extubated, now on 3 liters: continue nebs, [employer] following -Severe AE COPD: treat with iv steriods, abx, nebs around the clock -Hypotension due to circulatory shock possible septic shock from LLL pneumonia: resolved, off Vasopressor -Septic Shock suspected LLL Pseudomonas/E.coli pneumonia: -treated with ivf, abx, ID following, trachea aspirate growing Gram negative==> PSA resistant to Aztreonam/zosyn/cefepime/fortaz but sensitive to cipro /gent/levaquin/tobramycin; E. coli has not resistant, changed antibiotics to Levaquin and Gentamicin. OFF Vasopressor now -DVT prophylaxis: sq Lovenox -Disposition: awaiting SNF placement full code Brief History Patient is a 58 yo woman with a history of chronic hypoxic respiratory failure due to End stage COPD on home O2, CAD s/p PCI with bare metal stent, cps with recurrent admission for narcotic overdose, PCP toxicity in the past, MDD, dyslipidemia and anemia who presented from home to [facility] ED with AMS. According to chart, pt has not been using her O2 and started hallucinating. She was intubated in the ED. She was also hypotensive in the ED and started on V asopressor/Levophed. Being treated for PNA, on abx. Weaned off from vent, transferred to floor. Now waiting on SNF placement. * CTA chest IMPRESSION: 1. Study degraded by artifact created by retained hardware in the thoracic spine and by motion artifact. 2. No evidence of central pulmonary artery emboli. However, segmental pulmonary artery emboli could be missed or overcalled due to significant artifact. 3. Complete consolidation left lower lobe with air bronchograms and volume loss consistent with atelectasis. There appears to be opacification of a portion of the left lower lobe bronchus. 4. Tip of the endotracheal tube projected in satisfactory position. 5. Cardiomegaly. 6. IVC filter. 7. Prominent kyphosis of the thoracic spine with extensive instrumentation with retained hardware. * Abdominal 1 view XRAY IMPRESSION: Nasogastric tube is terminating in the stomach. Mild degree left pleural effusion * pCXR FINDINGS: Heart: Prominent cardiac silhouette. Mediastinum/Vessels: Prominent central vessels. Lungs/Pleural space: Left lung base airspace consolidation. Bony thorax: No acute osseous abnormality. Life support devices: The endotracheal tube tip is obscured by hardware in the thoracic spine, but likely projects approximately 4 cm superior to the carlos manuel. IMPRESSION: Prominent cardiac silhouette. Left lung base airspace consolidation Hospitalist Physical Gen: NAD, Awake, Alert, HEENT: NCAT, EOMI, PERRL, OP Clear Neck: supple, no adenopathy, no thyromegaly, no JVD CVS/Heart: RRR, normal S1S2, pulses present bilaterally Chest/Lungs: diminished bs bilateral, Symmetrical chest expansion, good air entry bilaterally GI/Abdomen: soft, NTND, good bowel sounds, no guarding or rebound /Bladder: no suprapubic tenderness, no CVA or paraspinal tenderness Extermity/Skin: no c/c/e, no obvious rash MSK: no joint swelling Neuro: CN 2-12 grossly intact, no new focal deficits Psych: calm Subjective Date of service: 06/22/18 Principal diagnosis: Septic Shock (? LLL pneumonia); Ac on Ch hypoxic- hypercapnic Resp failure Interval history: Patient was seen and examined. Imaging, nursing note, chart, labs and old chart reviewed. No acute event O/n Pending placement - SNF vs home with HH Objective - Constitutional Vitals: Vital Signs - 12hr 06/23/18 06/23/18 06/23/18 08:00 09:37 09:38 Pulse Rate [ 92 H 93 H Posterior Bilateral Throughout] Respiratory 18 17 Rate [Posterior Bilateral Throughout] O2 Sat by Pulse 96 Oximetry - Labs CBC & Chem 7: 06/18/18 05:01 06/18/18 05:01
[2018-06-23 12:30] VITALS: BP 120/57
== END 2018-06-23 13:56 | disposition home health service (06) | DRG 870 ==
LOC: ED 12:29 → CC1 19:14 → 3A 06-09 13:20
PROVIDERS: ADMIT Internal Medicine; ATTEND Internal Medicine
PROC: 5A1955Z Respiratory Ventilation, Greater than 96 Consecutive Hours (ICD-10-PCS; principal; 2018-05-28)
PROC: 0BH17EZ Insertion of Endotracheal Airway into Trachea, Via Natural or Artificial Opening (ICD-10-PCS; 2018-05-28)
PROC: 4A033R1 Measurement of Arterial Saturation, Peripheral, Percutaneous Approach (ICD-10-PCS; 2018-05-28)
PROC: 06HM33Z Insertion of Infusion Device into Right Femoral Vein, Percutaneous Approach (ICD-10-PCS; 2018-05-29)
PROC: B54BZZA Ultrasonography of Right Lower Extremity Veins, Guidance (ICD-10-PCS; 2018-05-29)
PROC: 02HV33Z Insertion of Infusion Device into Superior Vena Cava, Percutaneous Approach (ICD-10-PCS; 2018-05-30)
PROC: 5A09457 Assistance with Respiratory Ventilation, 24-96 Consecutive Hours, Continuous Positive Airway Pressure (ICD-10-PCS; 2018-06-05)
PROC: 5A09557 Assistance with Respiratory Ventilation, Greater than 96 Consecutive Hours, Continuous Positive Airway Pressure (ICD-10-PCS; 2018-06-10)
PROC: 5A09357 Assistance with Respiratory Ventilation, Less than 24 Consecutive Hours, Continuous Positive Airway Pressure (ICD-10-PCS; 2018-06-19)
DX: A41.52 Sepsis due to Pseudomonas (principal); R65.21 Severe sepsis with septic shock; J96.22 Acute and chronic respiratory failure with hypercapnia; J96.21 Acute and chronic respiratory failure with hypoxia; J15.5 Pneumonia due to Escherichia coli; G92 Toxic encephalopathy; J44.1 Chronic obstructive pulmonary disease with (acute) exacerbation; J44.0 Chronic obstructive pulmonary disease with (acute) lower respiratory infection; I25.10 Atherosclerotic heart disease of native coronary artery without angina pectoris; F32.9 Major depressive disorder, single episode, unspecified; D69.6 Thrombocytopenia, unspecified; K21.9 Gastro-esophageal reflux disease without esophagitis; I10 Essential (primary) hypertension; D75.89 Other specified diseases of blood and blood-forming organs; F41.1 Generalized anxiety disorder; Z82.49 Family history of ischemic heart disease and other diseases of the circulatory system; Z99.81 Dependence on supplemental oxygen; Z95.5 Presence of coronary angioplasty implant and graft; Z79.899 Other long term (current) drug therapy; Z88.5 Allergy status to narcotic agent; I25.2 Old myocardial infarction
CPT/HCPCS: 36415; 36600; 71045; 71275; 74018; 80048; 80053; 80170; 80202; 80307; 81001; 82140; 82803; 82962; 83735; 84100; 84478; 84484; 85007; 85025; 85027; 85379; 86022; 87040; 87070; 87076; 87186; 87205; 90686; 93005; 93010; 93970; 94002; 94003; 94640; 94660; 94760; G0378; J0330; J0456; J0692; J0696; J1580; J1650; J1652; J1815; J1940; J1956; J2060; J2704; J2920; J2930; J3010; J3370; J7030; J7040; J7050; J7512; Q9967

== ENCOUNTER 2018-08-14 17:39 | Emergency (ER) | payer MEDICARE ==
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
[2018-08-14 19:21] VITALS: BP 115/97
== END 2018-08-14 20:10 | disposition left against medical advice (07) ==
LOC: ED 17:39
DX: J44.1 Chronic obstructive pulmonary disease with (acute) exacerbation (principal); I11.0 Hypertensive heart disease with heart failure; I50.9 Heart failure, unspecified; I25.10 Atherosclerotic heart disease of native coronary artery without angina pectoris; I25.2 Old myocardial infarction; K21.9 Gastro-esophageal reflux disease without esophagitis; F41.9 Anxiety disorder, unspecified; F32.9 Major depressive disorder, single episode, unspecified; Z95.1 Presence of aortocoronary bypass graft; Z98.890 Other specified postprocedural states; F17.200 Nicotine dependence, unspecified, uncomplicated; Z79.899 Other long term (current) drug therapy; Z88.6 Allergy status to analgesic agent; Z88.8 Allergy status to other drugs, medicaments and biological substances
CPT/HCPCS: 99283

== ENCOUNTER 2018-08-15 02:21 | Inpatient (IN) | payer MEDICARE ==
[2018-08-15 03:20] LABS: Mean Corpuscular HGB Conc 30 % (30-34); Mean Corpuscular Volume 79 fl (79-97); Red Blood Count 4.82 M/mm3 (3.65-5.03); Red Cell Distribution Width 19.6 % (13.2-15.2)
--- NOTE | 2018-08-15 03:30 | XRay Report ---
PROCEDURE: XR CHEST 1V AP TECHNIQUE: Chest radiograph single view. HISTORY: SOB COMPARISONS: June 12 . FINDINGS: The cardiac silhouette is mildly enlarged and unchanged. Course interstitial markings, likely chronic. No evidence of airspace consolidation or pleural effusions Pulmonary vasculature is within normal limits. Spinal fusion rods in the thoracic spine again noted. IMPRESSION: Mild cardiomegaly. Increased interstitial markings, likely chronic. Status post thoracic spine fusion. No other radiographic evidence of acute disease. This document is electronically signed by Tyrone Vila MD., August 15 2018 03:28:13 AM ET
[2018-08-15 03:39] LABS: BUN/Creatinine Ratio 30; Blood Urea Nitrogen 12 mg/dL (7-17); Calcium 9.5 mg/dL (8.4-10.2); Hemolysis Index 18
[2018-08-15 03:41] LABS: Hematocrit 38.2 % (30.3-42.9); Hemoglobin 11.6 gm/dl (10.1-14.3); Platelet Count 189 K/mm3 (140-440)
[2018-08-15 03:44] LABS: INR 0.97 (0.87-1.13)
[2018-08-15] MEDS ORDERED: NITROSTAT SL PRN (04:21)
[2018-08-15] MEDS ORDERED: LIDOCAINE VISCOUS 2% MM STA (04:21)
[2018-08-15] MEDS ORDERED: ANTIBIOTIC OINT TP ONE (04:21)
[2018-08-15] MEDS ORDERED: PEPCID PO ONE (04:21)
[2018-08-15] MEDS ORDERED: BABY ASPIRIN PO ONE (04:21)
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
[2018-08-15] MEDS ORDERED: BOOSTRIX IM ONE (05:25)
[2018-08-15] MEDS ORDERED: ZOFRAN IV PRN (05:46)
[2018-08-15] MEDS: NITRO-BID 2% TP SCH (06:47)
[2018-08-15] MEDS ORDERED: ATIVAN IV ONE ×2 (07:57→12:00)
[2018-08-15] MEDS ORDERED: ATIVAN ONE (08:03)
[2018-08-15] MEDS ORDERED: LEXISCAN IV ONE (08:24)
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
[2018-08-15 12:45] LABS: Creatine Kinase MB 3.1 ng/mL (0.0-4.0)
--- NOTE | 2018-08-15 12:46 | Event Note ---
Date: 08/15/18
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
[2018-08-15] MEDS: PROVENTIL IH PRN (13:35)
[2018-08-15] MEDS ORDERED: HALDOL IM PRN (15:59)
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
[2018-08-15 17:05] LABS: ABG Base Excess 9.6 mmol/L (-2.0-3.0); ABG HCO3 37.8 mmol/L (20.0-26.0); ABG Methemoglobin 0.6 % (0.0-1.5); ABG Oxygen Saturation 75.9 % (95.0-99.0); ABG PH 7.327 pH Units (7.350-7.450); ABG PO2 44.2 mm Hg (80.0-90.0)
[2018-08-15] MEDS ORDERED: EFFEXOR PO SCH (20:00)
[2018-08-15] MEDS: PULMICORT IH SCH (20:04)
[2018-08-15] MEDS: BROVANA NEBU IH SCH (20:04)
[2018-08-15] MEDS: TYLENOL PO PRN (20:46)
[2018-08-15] MEDS: BUSPAR PO SCH (22:00)
[2018-08-15] MEDS: HEPARIN SUB-Q SCH (22:04)
[2018-08-16] MEDS: PROVENTIL IH PRN ×2 (02:38→09:03)
[2018-08-16] MEDS: SOLU-Medrol IV SCH ×4 (02:50→18:18)
[2018-08-16] MEDS: NITRO-BID 2% TP SCH ×5 (06:39→18:18)
[2018-08-16] MEDS ORDERED: VENLAFAXINE HCL 100 MG PO SCH (08:00)
[2018-08-16] MEDS: HEPARIN SUB-Q SCH ×3 (08:21→21:10)
[2018-08-16] MEDS: ASPIRIN PO SCH ×2 (08:21→10:47)
[2018-08-16] MEDS: PULMICORT IH SCH ×2 (09:03→20:30)
[2018-08-16] MEDS: BROVANA NEBU IH SCH ×2 (09:03→20:30)
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
[2018-08-16] MEDS ORDERED: DIAMOX IV ONE (10:30)
[2018-08-16] MEDS: BUSPAR PO SCH ×2 (10:47→21:10)
[2018-08-16] MEDS: TYLENOL PO PRN (21:10)
[2018-08-17] MEDS: SOLU-Medrol IV SCH ×3 (02:27→18:20)
[2018-08-17] MEDS: NITRO-BID 2% TP SCH ×4 (06:18→18:20)
[2018-08-17] MEDS: BROVANA NEBU IH SCH ×2 (07:59→19:45)
[2018-08-17] MEDS: PULMICORT IH SCH ×2 (07:59→19:45)
--- NOTE | 2018-08-17 09:24 | Progress Note ---
Assessment and Plan Acute on chronic combined (hypoxic-hypercapnic) respiratory failure AE-COPD Acute encephalopathy (Toxic/Met) H/O CAD Atypical Chest Pain History of substance abuse - add empiric Zithromax for severe COPD exacerbation - continue BIPAP qhs with prn daytime use - continue prn albuterol - continue systemic steroids with slow taper (on Solumedrol IV now) - continue brovana & pulmicort - add Pepcid for GI prophylaxis - PT/OT to increase ambulation - continue to wean supplemental oxygen to keep O2 sats >/= 90% - prn ABGs/CXR - continue VTE prophylaxis - resume chronic home medications per attending - continue accuchecks with glycemic control for target glucose < 180 mg/dL - Continue bronchodilators with pulmonary hygiene per RT - continue maintenance of sleep -wake cycle - continue mobility as tolerated by hemodynamics - Influenza and pneumonia vaccination addressed per protocol - continue other care per attending / other art consultant's ..... re-evaluate in am & prn Subjective Date of service: 08/17/18 Principal diagnosis: Ac on Ch hypoxic-hypercapnic Resp failure; AC. Encephalopathy (Toxic/met) Interval history: Patient is seen today for: Acute on chronic combined( hypoxic-hypercapnic) respiratory failure; AE COPD; Acute encephalopathy (Toxic/Met) Seen and examined at bedside; 24hour events reviewed; nursing and respiratory care staff consulted; no adverse overnight events reported to me; sitting in bed; remains on supplemental oxygen at 8L NC (3-4 L baseline at home); denies acute chest pains; No N/V/F/C; feels better overall Objective Vital Signs - 12hr 08/16/18 08/16/18 08/17/18 23:02 23:43 05:00 Temperature 98.2 F 98.1 F Pulse Rate 115 H 110 H Pulse Rate [ Throughout] Respiratory 20 18 18 Rate Respiratory Rate [ Throughout] Blood Pressure 127/79 154/78 O2 Sat by Pulse 88 86 Oximetry 08/17/18 08/17/18 08/17/18 07:59 08:12 08:37 Temperature 98.0 F Pulse Rate 109 H Pulse Rate [ 110 H 110 H Throughout] Respiratory 18 Rate Respiratory 19 19 Rate [ Throughout] Blood Pressure 170/90 O2 Sat by Pulse 83 L Oximetry 08/17/18 09:19 Temperature Pulse Rate Pulse Rate [ Throughout] Respiratory Rate Respiratory Rate [ Throughout] Blood Pressure O2 Sat by Pulse 88 Oximetry Constitutional: appears uncomfortable, other (elderly looking obese AAF, normocephalic and atraumatic with increased resp effort at rest) Eyes: non-icteric ENT: oropharynx moist, other (mallampati 3) Neck: supple, no lymphadenopathy, no JVD, other (large neck circumference) Effort: mildly labored Ascultation: Bilateral: diminished breath sounds, rhonchi Percussion: Bilateral: not dull Cardiovascular: regular rate and rhythm Gastrointestinal: normoactive bowel sounds, soft, non-tender, non-distended, ot her (protuberant) Integumentary: normal CBC and BMP: 08/15/18 02:55 08/15/18 02:55 ABG, PT/INR, D-dimer: ABG POC ABG pH 7.311 (7.35-7.45) L 08/16/18 04:56 ABG pH 7.327 pH Units (7.350-7.450) L 08/15/18 16:33 ABG pCO2 74.0 mm Hg 08/15/18 16:33 POC ABG pO2 82 (80-105) 08/16/18 04:56 ABG pO2 44.2 mm Hg (80.0-90.0) L 08/15/18 16:33 POC ABG HCO3 37.9 (22-26 mml/L) 08/16/18 04:56 POC ABG Total CO2 40 (23-27mmol/L) 08/16/18 04:56 POC ABG O2 Sat 94 08/16/18 04:56 ABG O2 Saturation 75.9 % (95.0-99.0) L 08/15/18 16:33 PT/INR, D-dimer PT 12.6 Sec. (12.2-14.9) 08/15/18 02:55 INR 0.97 (0.87-1.13) 08/15/18 02:55 Abnormal lab findings: Abnormal Labs 08/15/18 08/15/18 08/15/18 02:55 02:55 06:05 MCH 24 L RDW 19.6 H POC ABG pH ABG pH ABG pO2 ABG HCO3 ABG O2 Saturation ABG Base Excess ABG Hemoglobin Oxyhemoglobin Carbon Dioxide 32 H Creatinine 0.4 L Glucose 117 H Magnesium 2.60 H CK-MB (CK-2) Rel Index 7.6 H 08/15/18 08/15/18 08/16/18 11:53 16:33 04:56 MCH RDW POC ABG pH 7.311 L ABG pH 7.327 L ABG pO2 44.2 L ABG HCO3 37.8 H ABG O2 Saturation 75.9 L ABG Base Excess 9.6 H ABG Hemoglobin 10.8 L Oxyhemoglobin 73.2 L Carbon Dioxide Creatinine Glucose Magnesium CK-MB (CK-2) Rel Index 6.8 H
[2018-08-17] MEDS: HEPARIN SUB-Q SCH ×2 (09:27→22:02)
[2018-08-17] MEDS: ASPIRIN PO SCH (09:27)
[2018-08-17] MEDS: BUSPAR PO SCH (09:27)
[2018-08-17] MEDS: ZITHROMAX PO SCH (11:11)
[2018-08-17] MEDS: ULTRAM PO PRN ×2 (11:11→22:01)
[2018-08-17] MEDS: PEPCID PO SCH (11:12)
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
[2018-08-18] MEDS: BUSPAR PO SCH ×3 (06:47→22:50)
[2018-08-18] MEDS: SOLU-Medrol IV SCH ×3 (07:09→17:47)
[2018-08-18] MEDS: NITRO-BID 2% TP SCH ×4 (07:11→18:05)
[2018-08-18] MEDS: TYLENOL PO PRN (07:12)
[2018-08-18] MEDS: ASPIRIN PO SCH (09:22)
[2018-08-18] MEDS: PEPCID PO SCH (09:22)
[2018-08-18] MEDS: ZITHROMAX PO SCH (09:22)
[2018-08-18] MEDS: HEPARIN SUB-Q SCH ×2 (09:23→22:50)
[2018-08-18] MEDS: PULMICORT IH SCH ×2 (10:57→19:28)
[2018-08-18] MEDS: BROVANA NEBU IH SCH ×2 (10:58→19:28)
[2018-08-18] MEDS: ULTRAM PO PRN (11:42)
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
[2018-08-18] MEDS: XANAX PO PRN (18:06)
[2018-08-19] MEDS: XANAX PO PRN ×2 (02:41→10:10)
[2018-08-19] MEDS: SOLU-Medrol IV SCH ×2 (02:41→10:18)
[2018-08-19] MEDS: NITRO-BID 2% TP SCH ×3 (05:44→14:19)
[2018-08-19] MEDS: BROVANA NEBU IH SCH (07:57)
[2018-08-19] MEDS: PULMICORT IH SCH (07:57)
[2018-08-19] MEDS: BUSPAR PO SCH (10:09)
[2018-08-19] MEDS: PEPCID PO SCH (10:10)
[2018-08-19] MEDS: ASPIRIN PO SCH (10:10)
[2018-08-19] MEDS: ZITHROMAX PO SCH (10:10)
[2018-08-19] MEDS: HEPARIN SUB-Q SCH (10:17)
--- NOTE | 2018-08-19 12:47 | Progress Note ---
Assessment and Plan Acute on chronic combined (hypoxic-hypercapnic) respiratory failure AE-COPD Acute encephalopathy (Toxic/Met) H/O CAD Atypical Chest Pain History of substance abuse - continue to wean supplemental oxygen to keep O2 sats >/= 90% - added empiric Zithromax for severe COPD exacerbation - continue BIPAP qhs with prn daytime use - continue prn albuterol - continue systemic steroids with slow taper (on Solumedrol IV 60 mg q8h now) - continue brovana & pulmicort - added Pepcid for GI prophylaxis - PT/OT to increase ambulation - prn ABGs/CXR - continue VTE prophylaxis - resume chronic home medications per attending - continue accuchecks with glycemic control for target glucose < 180 mg/dL - Continue bronchodilators with pulmonary hygiene per RT - continue maintenance of sleep -wake cycle - continue mobility as tolerated by hemodynamics - Influenza and pneumonia vaccination addressed per protocol - continue other care per attending / other event management consultant's ..... re-evaluate in am & prn Subjective Date of service: 08/18/18 Principal diagnosis: Ac on Ch hypoxic-hypercapnic Resp failure; AC. Encephalopathy (Toxic/met) Interval history: LATE ENTRY FOR DOS 08/18/18 Patient is seen today for: Acute on chronic combined( hypoxic-hypercapnic) respiratory failure; AE COPD; Acute encephalopathy (Toxic/Met) Seen and examined at bedside; 24hour events reviewed; nursing and respiratory care staff consulted; no adverse overnight events reported to me; sitting in bed; remains on supplemental oxygen down to 5L NC (3-4 L baseline at home); No N/V/F/C; feels better Objective Vital Signs - 12hr 08/19/18 08/19/18 08/19/18 03:56 04:00 05:44 Temperature 97.6 F Pulse Rate 83 99 H 95 H Pulse Rate [ Bilateral] Pulse Rate [ From Monitor] Respiratory 20 Rate Respiratory Rate [Bilateral ] Blood Pressure 149/78 149/78 Blood Pressure [Left] O2 Sat by Pulse 95 Oximetry 08/19/18 08/19/18 08/19/18 07:57 07:58 08:07 Temperature 97.9 F Pulse Rate 79 Pulse Rate [ 100 H 105 H Bilateral] Pulse Rate [ From Monitor] Respiratory 18 Rate Respiratory 18 17 Rate [Bilateral ] Blood Pressure Blood Pressure 156/83 [Left] O2 Sat by Pulse 96 Oximetry 08/19/18 08/19/18 08/19/18 09:12 10:11 11:00 Temperature Pulse Rate 67 Pulse Rate [ Bilateral] Pulse Rate [ 84 From Monitor] Respiratory 18 Rate Respiratory Rate [Bilateral ] Blood Pressure 142/79 Blood Pressure [Left] O2 Sat by Pulse 96 Oximetry 08/19/18 08/19/18 08/19/18 11:01 11:15 12:17 Temperature 98.6 F Pulse Rate 84 92 H Pulse Rate [ Bilateral] Pulse Rate [ From Monitor] Respiratory 18 Rate Respiratory Rate [Bilateral ] Blood Pressure 136/82 Blood Pressure [Left] O2 Sat by Pulse 94 93 Oximetry Constitutional: no acute distress, other (elderly looking obese AAF, normocephalic and atraumatic with mildly increased resp effort at rest) Eyes: non-icteric ENT: oropharynx moist, other (mallampati 3) Neck: supple, no lymphadenopathy, no JVD, other (large neck circumference) Effort: mildly labored Ascultation: Bilateral: diminished breath sounds, rhonchi Percussion: Bilateral: not dull Cardiovascular: regular rate and rhythm Gastrointestinal: normoactive bowel sounds, soft, non-tender, non-distended, other (protuberant) Integumentary: normal Extremities: no cyanosis, no edema, pink and warm, no ischemia or petechiae Neurologic: normal mental status, non-focal exam, pupils equal and round, CN II- XII normal Psychiatric: mood appropriate, affect normal CBC and BMP: 08/15/18 02:55 08/15/18 02:55 ABG, PT/INR, D-dimer: ABG POC ABG pH 7.311 (7.35-7.45) L 08/16/18 04:56 ABG pH 7.327 pH Units (7.350-7.450) L 08/15/18 16:33 ABG pCO2 74.0 mm Hg 08/15/18 16:33 POC ABG pO2 82 (80-105) 08/16/18 04:56 ABG pO2 44.2 mm Hg (80.0-90.0) L 08/15/18 16:33 POC ABG HCO3 37.9 (22-26 mml/L) 08/16/18 04:56 POC ABG Total CO2 40 (23-27mmol/L) 08/16/18 04:56 POC ABG O2 Sat 94 08/16/18 04:56 ABG O2 Saturation 75.9 % (95.0-99.0) L 08/15/18 16:33 PT/INR, D-dimer PT 12.6 Sec. (12.2-14.9) 08/15/18 02:55 INR 0.97 (0.87-1.13) 08/15/18 02:55 Abnormal lab findings: Abnormal Labs 08/15/18 08/15/18 08/15/18 02:55 02:55 06:05 MCH 24 L RDW 19.6 H POC ABG pH ABG pH ABG pO2 ABG HCO3 ABG O2 Saturation ABG Base Excess ABG Hemoglobin Oxyhemoglobin Carbon Dioxide 32 H Creatinine 0.4 L Glucose 117 H Magnesium 2.60 H CK-MB (CK-2) Rel Index 7.6 H 08/15/18 08/15/18 08/16/18 11:53 16:33 04:56 MCH RDW POC ABG pH 7.311 L ABG pH 7.327 L ABG pO2 44.2 L ABG HCO3 37.8 H ABG O2 Saturation 75.9 L ABG Base Excess 9.6 H ABG Hemoglobin 10.8 L Oxyhemoglobin 73.2 L Carbon Dioxide Creatinine Glucose Magnesium CK-MB (CK-2) Rel Index 6.8 H
--- NOTE | 2018-08-19 12:51 | Progress Note ---
Assessment and Plan Acute on chronic combined (hypoxic-hypercapnic) respiratory failure AE-COPD Acute encephalopathy (Toxic/Met) H/O CAD Atypical Chest Pain History of substance abuse - reduced O2 flow to 2L/min and sats > 90% - restrictive oxygen therapies acutely (accept 88-92%) - continue to wean supplemental oxygen to keep O2 sats >/= 88 - 90% - continue empiric Zithromax for severe COPD exacerbation - continue BIPAP qhs with prn daytime use - continue prn albuterol - continue systemic steroids with slow taper (tapered to 60 mg q12h now) - continue brovana & pulmicort - continue Pepcid for GI prophylaxis - PT/OT to increase ambulation - prn ABGs/CXR - continue VTE prophylaxis - resume chronic home medications per attending - continue accuchecks with glycemic control for target glucose < 180 mg/dL - Continue bronchodilators with pulmonary hygiene per RT - continue maintenance of sleep -wake cycle - continue mobility as tolerated by hemodynamics - Influenza and pneumonia vaccination addressed per protocol - continue other care per attending / other business process consultant's ..... re-evaluate in am & prn Subjective Date of service: 08/19/18 Principal diagnosis: Ac on Ch hypoxic-hypercapnic Resp failure; AC. Encephalopathy (Toxic/met) Interval history: Patient is seen today for: Acute on chronic combined( hypoxic-hypercapnic) respiratory failure; AE COPD; Acute encephalopathy (Toxic/Met) Seen and examined at bedside; 24hour events reviewed; nursing and respiratory care staff consulted; no adverse overnight events reported to me; sitting in bed; remains on supplemental oxygen at 5L NC (3-4 L baseline at home); no new issues otherwise Objective Vital Signs - 12hr 08/19/18 08/19/18 08/19/18 03:56 04:00 05:44 Temperature 97.6 F Pulse Rate 83 99 H 95 H Pulse Rate [ Bilateral] Pulse Rate [ From Monitor] Respiratory 20 Rate Respiratory Rate [Bilateral ] Blood Pressure 149/78 149/78 Blood Pressure [Left] O2 Sat by Pulse 95 Oximetry 08/19/18 08/19/18 08/19/18 07:57 07:58 08:07 Temperature 97.9 F Pulse Rate 79 Pulse Rate [ 100 H 105 H Bilateral] Pulse Rate [ From Monitor] Respiratory 18 Rate Respiratory 18 17 Rate [Bilateral ] Blood Pressure Blood Pressure 156/83 [Left] O2 Sat by Pulse 96 Oximetry 08/19/18 08/19/18 08/19/18 09:12 10:11 11:00 Temperature Pulse Rate 67 Pulse Rate [ Bilateral] Pulse Rate [ 84 From Monitor] Respiratory 18 Rate Respiratory Rate [Bilateral ] Blood Pressure 142/79 Blood Pressure [Left] O2 Sat by Pulse 96 Oximetry 08/19/18 08/19/18 08/19/18 11:01 11:15 12:17 Temperature 98.6 F Pulse Rate 84 92 H Pulse Rate [ Bilateral] Pulse Rate [ From Monitor] Respiratory 18 Rate Respiratory Rate [Bilateral ] Blood Pressure 136/82 Blood Pressure [Left] O2 Sat by Pulse 94 93 Oximetry Constitutional: no acute distress, other (elderly looking obese AAF, normocephalic and atraumatic with mildly increased resp effort at rest) Eyes: non-icteric ENT: oropharynx moist, other (mallampati 3) Neck: supple, no lymphadenopathy, no JVD, other (large neck circumference) Effort: mildly labored Ascultation: Bilateral: diminished breath sounds, rhonchi Percussion: Bilateral: not dull Cardiovascular: regular rate and rhythm Gastrointestinal: normoactive bowel sounds, soft, non-tender, non-distended, other (protuberant) Integumentary: normal Extremities: no cyanosis, no edema, pink and warm, no ischemia or petechiae Neurologic: normal mental status, non-focal exam, pupils equal and round, CN II- XII normal Psychiatric: mood appropriate, affect normal CBC and BMP: 08/15/18 02:55 08/15/18 02:55 ABG, PT/INR, D-dimer: ABG POC ABG pH 7.311 (7.35-7.45) L 08/16/18 04:56 ABG pH 7.327 pH Units (7.350-7.450) L 08/15/18 16:33 ABG pCO2 74.0 mm Hg 08/15/18 16:33 POC ABG pO2 82 (80-105) 08/16/18 04:56 ABG pO2 44.2 mm Hg (80.0-90.0) L 08/15/18 16:33 POC ABG HCO3 37.9 (22-26 mml/L) 08/16/18 04:56 POC ABG Total CO2 40 (23-27mmol/L) 08/16/18 04:56 POC ABG O2 Sat 94 08/16/18 04:56 ABG O2 Saturation 75.9 % (95.0-99.0) L 08/15/18 16:33 PT/INR, D-dimer PT 12.6 Sec. (12.2-14.9) 08/15/18 02:55 INR 0.97 (0.87-1.13) 08/15/18 02:55 Abnormal lab findings: Abnormal Labs 08/15/18 08/15/18 08/15/18 02:55 02:55 06:05 MCH 24 L RDW 19.6 H POC ABG pH ABG pH ABG pO2 ABG HCO3 ABG O2 Saturation ABG Base Excess ABG Hemoglobin Oxyhemoglobin Carbon Dioxide 32 H Creatinine 0.4 L Glucose 117 H Magnesium 2.60 H CK-MB (CK-2) Rel Index 7.6 H 08/15/18 08/15/18 08/16/18 11:53 16:33 04:56 MCH RDW POC ABG pH 7.311 L ABG pH 7.327 L ABG pO2 44.2 L ABG HCO3 37.8 H ABG O2 Saturation 75.9 L ABG Base Excess 9.6 H ABG Hemoglobin 10.8 L Oxyhemoglobin 73.2 L Carbon Dioxide Creatinine Glucose Magnesium CK-MB (CK-2) Rel Index 6.8 H
[2018-08-19] MEDS ORDERED: SOLU-Medrol IV SCH (13:00)
[2018-08-19 15:25] VITALS: BP 143/86
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
== END 2018-08-19 17:44 | disposition home or self-care (01) | DRG 91 ==
LOC: SUATTDRO 02:21 → ED 02:21 → 4A 05:38 → OBSVTOIN 08-17 10:21
PROVIDERS: ADMIT Internal Medicine; ATTEND Internal Medicine
PROC: 3E0234Z Introduction of Serum, Toxoid and Vaccine into Muscle, Percutaneous Approach (ICD-10-PCS; principal; 2018-08-15)
PROC: 5A09357 Assistance with Respiratory Ventilation, Less than 24 Consecutive Hours, Continuous Positive Airway Pressure (ICD-10-PCS; 2018-08-16)
PROC: 4A033R1 Measurement of Arterial Saturation, Peripheral, Percutaneous Approach (ICD-10-PCS; 2018-08-19)
DX: G92 Toxic encephalopathy (principal); J96.21 Acute and chronic respiratory failure with hypoxia; J96.22 Acute and chronic respiratory failure with hypercapnia; J44.1 Chronic obstructive pulmonary disease with (acute) exacerbation; E66.9 Obesity, unspecified; K21.9 Gastro-esophageal reflux disease without esophagitis; F17.210 Nicotine dependence, cigarettes, uncomplicated; F32.9 Major depressive disorder, single episode, unspecified; F41.9 Anxiety disorder, unspecified; T59.811A Toxic effect of smoke, accidental (unintentional), initial encounter; J70.5 Respiratory conditions due to smoke inhalation; R07.89 Other chest pain; I25.10 Atherosclerotic heart disease of native coronary artery without angina pectoris; Z99.81 Dependence on supplemental oxygen; I25.2 Old myocardial infarction; Z90.49 Acquired absence of other specified parts of digestive tract; Z88.5 Allergy status to narcotic agent; Z88.8 Allergy status to other drugs, medicaments and biological substances; Z95.5 Presence of coronary angioplasty implant and graft; Z23 Encounter for immunization; Z79.51 Long term (current) use of inhaled steroids; Z68.30 Body mass index [BMI] 30.0-30.9, adult; Y92.098 Other place in other non-institutional residence as the place of occurrence of the external cause; Z71.6 Tobacco abuse counseling
CPT/HCPCS: 36415; 36600; 71045; 80048; 82140; 82375; 82550; 82553; 82803; 82805; 83735; 84484; 85027; 85610; 87116; 90471; 90715; 93005; 93010; 93017; 94640; 94660; 94760; 96374; 99283; 99406; G0378; J1120; J1630; J1644; J2060; J2785; J2930

== ENCOUNTER 2018-09-03 21:44 | Inpatient (IN) | payer MEDICARE ==
[2018-09-03] MEDS ORDERED: ATROVENT IH ONE (21:58)
[2018-09-03] MEDS ORDERED: PROVENTIL IH ONE (21:58)
[2018-09-03] MEDS ORDERED: MAGNESIUM SULFATE 2GM/50ML 2 GM/50 ML BAG IV ONE (21:59)
[2018-09-03] MEDS ORDERED: ASPIRIN PO ONE (22:01)
[2018-09-03] MEDS ORDERED: NITRO-BID 2% TP ONE (22:08)
--- NOTE | 2018-09-03 22:14 | Emergency Department Report ---
HPI - General Chief Complaint: Dyspnea/Respdistress Time Seen by Provider: 09/03/18 21:58 - HPI HPI: Room 22 The pt is a 58 y/o F p/w a cc of SOB and CP. The pt states her sxs began today. CP is constant. No Fever. Pt has h/o COPD and was administered Albuterol and solumedrol [employer]. Pt reported to be hypoxic in 80's by EMS upon their arrival ED Past Medical Hx - Past Medical History Hx Hypertension: Yes Hx Heart Attack/AMI: Yes (2016) Hx GERD: Yes Hx Liver Disease: Yes Hx Psychiatric Treatment: Yes (depression and anxiety) Hx COPD: Yes (3-3.5 L NC) - Surgical History Hx Coronary Stent: Yes (2016) Hx Appendectomy: Yes Additional Surgical History: heart stents, Back surgery - Family History Family history: no significant - Social History Smoking Status: Former Smoker Substance Use Type: None - Medications Home Medications: Home Medications Medication Instructions Recorded Confirmed Last Taken Type Venlafaxine HCl [Venlafaxine] 100 mg PO TIDWM #30 tablet 07/16/16 08/15/18 1 Day Ago Rx ~08/13/16 ALBUTEROL NEB's [Proventil 0.083% 2.5 mg IH Q4HRT PRN #30 nebu 06/19/18 08/15/18 Unknown Rx NEBS] ALPRAZolam [Xanax TAB] 0.25 mg PO Q8H PRN #15 tablet 06/19/18 08/15/18 Unknown Rx Acetaminophen [Acetaminophen TAB] 650 mg PO Q6H PRN tablet 06/19/18 08/15/18 Unknown Rx Baclofen [Lioresal] 10 mg PO BID #60 tab 06/19/18 08/15/18 Unknown Rx busPIRone [Buspar] 5 mg PO BID #60 tab 06/19/18 08/15/18 Unknown Rx Arformoterol Nebu [Brovana Nebu] 15 mcg IH Q12HRT #30 ml 08/19/18 Unknown Rx Azithromycin [Zithromax Z-NETTE] 0 mg PO DAILY #1 tab 08/19/18 Unknown Rx Budesonide [Pulmicort Respules] 0.5 mg IH Q12HRT #30 nebu 08/19/18 Unknown Rx HYDROcodone/APAP 5-325 [[place] 1 each PO Q4H PRN #7 tablet 08/19/18 Unknown Rx 5-325 mg TAB] Ipratropium/Albuterol Sulfate 1 ampul IH BIDRT #30 ampul.neb 08/19/18 Unknown Rx [DUONEB *Not for PRN Use*] Nicotine [Habitrol] 21 mg TD DAILY #30 patch 08/19/18 Unknown Rx Pantoprazole [Protonix TAB] 40 mg PO QDAY #30 tab 08/19/18 Unknown Rx Prednisone [predniSONE 10 mg 10 mg PO .TAPER #1 tab.ds.pk 08/19/18 Unknown Rx (6-Day Pack, 21 Tabs)] ED Review of Systems ROS: Stated complaint: KAYA Other details as noted in HPI Constitutional: no symptoms reported Eyes: denies: eye pain ENT: denies: throat pain Respiratory: shortness of breath Cardiovascular: chest pain Endocrine: no symptoms reported Gastrointestinal: denies: abdominal pain Genitourinary: denies: dysuria Musculoskeletal: denies: back pain Neurological: denies: headache Physical Exam - Physical Exam Vital Signs: Vital Signs 09/03/18 21:46 Temperature 98.5 F Physical Exam: GEN: WD WN F lying on stretcher c increased WOB HEENT: EOMI NECK: Trachea midline LUNGS: diminished BS bilat, accessory muscle use CV: RRR no m/r/g ABD: S/NT/ND SKIN: No Diaphoresis NEURO: GCS 15 MS: no evidence of acute injury ED Course Vital Signs 09/03/18 21:46 Temperature 98.5 F ED Medical Decision Making - Lab Data Result diagrams: 09/03/18 22:16 09/03/18 22:16 Laboratory Tests 09/03/18 09/03/18 09/03/18 22:16 22:16 22:16 WBC 9.7 RBC 4.33 Hgb 10.4 Hct 34.9 MCV 81 MCH 24 L MCHC 30 RDW 19.8 H Plt Count 163 Lymph % (Auto) 10.9 L [place] % (Auto) 13.4 H Eos % (Auto) 0.9 Baso % (Auto) 0.7 Lymph # 1.1 L [place] # 1.3 H Eos # 0.1 Baso # 0.1 Seg Neutrophils % 74.1 H Seg Neutrophils # 7.2 PT 12.9 INR 1.00 APTT 29.3 Sodium 144 Potassium 3.5 L Chloride 102.7 Carbon Dioxide 33 H Anion Gap 12 BUN 11 Creatinine 0.3 L Estimated GFR > 60 BUN/Creatinine Ratio 37 Glucose 89 Calcium 8.5 Total Creatine Kinase 50 CK-MB (CK-2) 3.3 CK-MB (CK-2) Rel Index 6.6 H Troponin T < 0.010 NT-Pro-B Natriuret Pep 2534 H - EKG Data -: EKG Interpreted by Me EKG shows normal: sinus rhythm Rate: normal - EKG Data When compared to previous EKG there are: changes noted Interpretation: nonspecific ST-T wave latrice (TWI aVF, V6) - Radiology Data Radiology results: image reviewed (cxr) interpreted by me: cxr- no focal infiltrate. no ptx [facility] [address] [place] [address] XRay Report Signed Patient: GARETT GARCIA MR#: [id number] : 1960 Acct:[id number] Age/Sex: 58 / F ADM Date: 09/03/18 Loc: ED Attending Dr: Ordering Physician: SAMANTHA TAYLOR MD Date of Service: 09/03/18 Procedure(s): XR chest 1V ap Accession Number(s): [id number] cc: SAMANTHA TAYLOR MD Fluoro Time In Minutes: CHEST 1 VIEW INDICATION / CLINICAL INFORMATION: chest pain, SOB. COMPARISON: None available. FINDINGS: SUPPORT DEVICES: None. HEART / MEDIASTINUM: Stable mild enlargement of cardiac mediastinal silhouette LUNGS / PLEURA: Increased interstitial markings bilaterally, unchanged. No pneumothorax. ADDITIONAL FINDINGS: No significant additional findings. IMPRESSION: 1. Interstitial opacities are not significantly Signer Name: Blair Mcarthru MD Signed: 09/03/2018 11:05 PM Workstation Name: [id number] Transcribed By: UT Dictated By: Blair Mcarthur MD Electronically Authenticated By: Blair Mcarthur MD Signed Date/Time: 09/03/182304 DD/ 03 TD/TT: - Differential Diagnosis COPD exacerbation, ACS, CHF Critical care attestation.: If time is entered above; I have spent that time in minutes in the direct care of this critically ill patient, excluding procedure time. ED Disposition Clinical Impression: COPD exacerbation, Acute chest pain Disposition: DC-09 OP ADMIT IP TO THIS HOSP Is pt being admited?: Yes Does the pt Need Aspirin: Yes Condition: Fair Instructions: Chest Pain (ED), Chronic Bronchitis (ED) Time of Disposition: 23:26 (hospitalist notified)
[2018-09-03 22:40] LABS: Basophils # (Auto) 0.1 K/mm3 (0.0-0.1); Basophils % (Auto) 0.7 % (0.0-1.8); Eosinophils # (Auto) 0.1 K/mm3 (0.0-0.4); Eosinophils % (Auto) 0.9 % (0.0-4.3); Lymphocytes # (Auto) 1.1 K/mm3 (1.2-5.4); Lymphocytes % (Auto) 10.9 % (13.4-35.0); Mean Corpuscular HGB Conc 30 % (30-34); Mean Corpuscular Volume 81 fl (79-97); Monocytes # (Auto) 1.3 K/mm3 (0.0-0.8); Monocytes % (Auto) 13.4 % (0.0-7.3); Platelet Count 163 K/mm3 (140-440); Red Blood Count 4.33 M/mm3 (3.65-5.03); Red Cell Distribution Width 19.8 % (13.2-15.2)
[2018-09-03 22:41] LABS: Hematocrit 34.9 % (30.3-42.9); Hemoglobin 10.4 gm/dl (10.1-14.3)
[2018-09-03 22:51] LABS: Partial Thromboplastin Time 29.3 Sec. (24.2-36.6)
--- NOTE | 2018-09-03 23:10 | XRay Report ---
CHEST 1 VIEW INDICATION / CLINICAL INFORMATION: chest pain, SOB. COMPARISON: None available. FINDINGS: SUPPORT DEVICES: None. HEART / MEDIASTINUM: Stable mild enlargement of cardiac mediastinal silhouette LUNGS / PLEURA: Increased interstitial markings bilaterally, unchanged. No pneumothorax. ADDITIONAL FINDINGS: No significant additional findings. IMPRESSION: 1. Interstitial opacities are not significantly Signer Name: Blair Mcarthur MD Signed: 09/03/2018 11:05 PM Workstation Name: [id number]
[2018-09-03 23:15] LABS: Creatine Kinase MB 3.3 ng/mL (0.0-4.0)
[2018-09-03 23:18] LABS: BUN/Creatinine Ratio 37; Blood Urea Nitrogen 11 mg/dL (7-17); Calcium 8.5 mg/dL (8.4-10.2); Hemolysis Index 6
[2018-09-04] MEDS ORDERED: TYLENOL PO PRN (00:13)
[2018-09-04] MEDS ORDERED: PROVENTIL IH PRN (00:13)
[2018-09-04] MEDS ORDERED: SODIUM CHLORIDE FLUSH SYRINGE 10 ML IV PRN (00:13)
[2018-09-04] MEDS ORDERED: ZOFRAN IV PRN (00:13)
[2018-09-04] MEDS ORDERED: K-DUR PO ONE ×2 (00:58→03:00)
--- NOTE | 2018-09-04 00:59 | Event Note ---
58-year-old woman with history of hypertension, CAD status post [place] in 2017, GERD, liver disease, depression and anxiety disorder, COPD on home oxygen 3.5 L who presents to the hospital with chest pain, hypoxia and shortness of breath. Acute on chronic hypoxic respiratory failure with hypercapnia; continue BiPAP COPD exacerbation; steroids nebs, continue rescue BiPAP for now, pulm consult Hypokalemia, mild; replete by mouth chest pain; likely due to copd exacerbation, serial trops, cardiology consult
[2018-09-04] MEDS ORDERED: NORCO 5/325 PO PRN (02:39)
[2018-09-04] MEDS ORDERED: XANAX PO PRN (02:39)
[2018-09-04] MEDS ORDERED: SOLU-Medrol ONE (03:00)
--- NOTE | 2018-09-04 03:04 | History and Physical Report ---
History of Present Illness Date of examination: 09/04/18 Date of admission: 09/04/18 00:13 Chief complaint: KAYA History of present illness: 58 year old female with history of COPD, chronic respiratory failure on 3-3,5L home oxygen, CAD who presents to [facility] ED with c/o difficulty breathing. Pt stated that she started experiencing SOB yesterday afternoon. She tried taking a few breathing treatments with no relief, so she decided to call EMS. Upon EMS arrival she was found to be hypoxic with saturations in 80's. Pt also complained on non radiating left sided chest pain. She denies radiation of pain. Denies: sputum production, fever, or hempotysis Past History Past Medical History: COPD (on chronic home O2 3-3.5L), GERD, liver disease, other (depression, anxiety) Past Surgical History: Other (stents, Back surgery) Social history: other ( Former Smoker) Family history: no significant family history Medications and Allergies Allergies Allergy/AdvReac Type Severity Reaction Status Date / Time hydromorphone [From Dilaudid] Allergy Unknown Verified 03/01/18 21:50 phenobarbital Allergy Unknown Verified 10/28/14 09:33 Home Medications Medication Instructions Recorded Confirmed Last Taken Type Venlafaxine HCl [Venlafaxine] 100 mg PO TIDWM #30 tablet 07/16/16 08/15/18 1 Day Ago Rx ~08/13/16 ALBUTEROL NEB's [Proventil 0.083% 2.5 mg IH Q4HRT PRN #30 nebu 06/19/18 08/15/18 Unknown Rx NEBS] ALPRAZolam [Xanax TAB] 0.25 mg PO Q8H PRN #15 tablet 06/19/18 08/15/18 Unknown Rx Acetaminophen [Acetaminophen TAB] 650 mg PO Q6H PRN tablet 06/19/18 08/15/18 Unknown Rx Baclofen [Lioresal] 10 mg PO BID #60 tab 06/19/18 08/15/18 Unknown Rx busPIRone [Buspar] 5 mg PO BID #60 tab 06/19/18 08/15/18 Unknown Rx Arformoterol Nebu [Brovana Nebu] 15 mcg IH Q12HRT #30 ml 08/19/18 Unknown Rx Budesonide [Pulmicort Respules] 0.5 mg IH Q12HRT #30 nebu 08/19/18 Unknown Rx HYDROcodone/APAP 5-325 [Mark 1 each PO Q4H PRN #7 tablet 08/19/18 Unknown Rx 5-325 mg TAB] Ipratropium/Albuterol Sulfate 1 ampul IH BIDRT #30 ampul.neb 08/19/18 Unknown Rx [DUONEB *Not for PRN Use*] Pantoprazole [Protonix TAB] 40 mg PO QDAY #30 tab 08/19/18 Unknown Rx Active Meds: Active Medications Acetaminophen (Tylenol) 650 mg PO Q4H PRN PRN Reason: Pain MILD(1-3)/Fever >100.5/PRAJAPATI Acetaminophen/Hydrocodone Bitart (Mark 5/325) 1 each PO Q4H PRN PRN Reason: Pain, Moderate (4-6) Albuterol (Proventil) 2.5 mg IH Q3HRT PRN PRN Reason: Shortness Of Breath Albuterol/Ipratropium (Duoneb *Not For Prn Use*) 1 ampul IH Q6HRT DOMINICK Alprazolam (Xanax) 0.25 mg PO Q8H PRN PRN Reason: Anxiety Arformoterol Tartrate (Brovana Nebu) 15 mcg IH Q12HRT [facility] Baclofen (Lioresal) 10 mg PO BID DOMINICK Budesonide (Pulmicort) 0.5 mg IH Q12HRT DOMINICK Budesonide (Pulmicort) 0.5 mg IH Q12HRT [facility] Buspirone HCl (Buspar) 5 mg PO BID [facility] Enoxaparin Sodium (Lovenox) 40 mg SUB-Q QDAY [facility] Guaifenesin (Mucinex Er) 600 mg PO BID [facility] Methylprednisolone Sodium Succinate (Solu-Medrol) 80 mg IV Q8H [facility] Miscellaneous Medication (Venlafaxine Hcl [Venlafaxine]) 100 mg PO TIDWM [facility] Nicotine (Habitrol) 21 mg TD DAILY [facility] Ondansetron HCl (Zofran) 4 mg IV Q8H PRN PRN Reason: Nausea And Vomiting Pantoprazole Sodium (Protonix) 40 mg PO QDAY [facility] Sodium Chloride (Sodium Chloride Flush Syringe 10 Ml) 10 ml IV BID [facility] Sodium Chloride (Sodium Chloride Flush Syringe 10 Ml) 10 ml IV PRN PRN PRN Reason: LINE FLUSH Review of Systems All systems: negative (reviewed and no additional remarkable complaints except as noted below) Cardiovascular: chest pain (chest wall pain) Respiratory: shortness of breath, dyspnea on exertion, wheezing Exam - Physical Exam Narrative exam: Physical exam General appearance: Present: mild distress, drowsy but easily aroused, criti santhosh ill parent adult female - EENT Eyes: Present: PERRL, EOM intact ENT: hearing intact, poor dentition - Neck Neck: Present: supple, normal ROM - Respiratory Respiratory effort: labored, on BiPaP Respiratory: Wheezing with poor air movement - Cardiovascular Heart rate: (bpm) Rhythm: regular Heart Sounds: Present: S1 & S2. Absent: rub, click - Extremities Extremities: no ischemia, pulses intact, - Peripheral Assessment Peripheral Pulses: within normal limits - Abdominal General gastrointestinal: soft, non-tender, normal bowel sounds - Integumentary Integumentary: Present: warm, dry - Musculoskeletal Musculoskeletal: generalized weakness - Psychiatric Psychiatric: cooperative - Constitutional Vitals: Temp Pulse Resp BP Pulse Ox 98.5 F 56 L 14 124/61 93 09/03/18 21:46 09/04/18 02:00 09/04/18 02:00 09/04/18 02:00 09/04/18 02:00 Results - Labs CBC & Chem 7: 09/03/18 22:16 09/03/18 22:16 Labs: Laboratory Last Values WBC 9.7 K/mm3 (4.5-11.0) 09/03/18 22:16 RBC 4.33 M/mm3 (3.65-5.03) 09/03/18 22:16 Hgb 10.4 gm/dl (10.1-14.3) 09/03/18 22:16 Hct 34.9 % (30.3-42.9) 09/03/18 22:16 MCV 81 fl (79-97) 09/03/18 22:16 MCH 24 pg (28-32) L 09/03/18 22:16 MCHC 30 % (30-34) 09/03/18 22:16 RDW 19.8 % (13.2-15.2) H 09/03/18 22:16 Plt Count 163 K/mm3 (140-440) 09/03/18 22:16 Lymph % (Auto) 10.9 % (13.4-35.0) L 09/03/18 22:16 [place] % (Auto) 13.4 % (0.0-7.3) H 09/03/18 22:16 Eos % (Auto) 0.9 % (0.0-4.3) 09/03/18 22:16 Baso % (Auto) 0.7 % (0.0-1.8) 09/03/18 22:16 Lymph # 1.1 K/mm3 (1.2-5.4) L 09/03/18 22:16 [place] # 1.3 K/mm3 (0.0-0.8) H 09/03/18 22:16 Eos # 0.1 K/mm3 (0.0-0.4) 09/03/18 22:16 Baso # 0.1 K/mm3 (0.0-0.1) 09/03/18 22:16 Seg Neutrophils % 74.1 % (40.0-70.0) H 09/03/18 22:16 Seg Neutrophils # 7.2 K/mm3 (1.8-7.7) 09/03/18 22:16 PT 12.9 Sec. (12.2-14.9) 09/03/18 22:16 INR 1.00 (0.87-1.13) 09/03/18 22:16 APTT 29.3 Sec. (24.2-36.6) 09/03/18 22:16 POC ABG pH 7.280 (7.35-7.45) L 09/03/18 23:45 POC ABG pO2 71 (80-105) L 09/03/18 23:45 POC ABG HCO3 37.5 (22-26 mml/L) 09/03/18 23:45 POC ABG Total CO2 40 (23-27mmol/L) 09/03/18 23:45 POC ABG O2 Sat 91 09/03/18 23:45 POC ABG Base Excess 11 ((-2) - (+3)mmol/L) 09/03/18 23:45 50 % 09/03/18 23:45 Sodium 144 mmol/L (137-145) 09/03/18 22:16 Potassium 3.5 mmol/L (3.6-5.0) L 09/03/18 22:16 Chloride 102.7 mmol/L (98-107) 09/03/18 22:16 Carbon Dioxide 33 mmol/L (22-30) H 09/03/18 22:16 12 mmol/L 09/03/18 22:16 BUN 11 mg/dL (7-17) 09/03/18 22:16 0.3 mg/dL (0.7-1.2) L 09/03/18 22:16 Estimated GFR > 60 ml/min 09/03/18 22:16 37 % 09/03/18 22:16 Glucose 89 mg/dL (65-100) 09/03/18 22:16 Calcium 8.5 mg/dL (8.4-10.2) 09/03/18 22:16 50 units/L (30-135) 09/03/18 22:16 CK-MB (CK-2) 3.3 ng/mL (0.0-4.0) 09/03/18 22:16 CK-MB (CK-2) Rel Index 6.6 (0-4) H 09/03/18 22:16 < 0.010 ng/mL (0.00-0.029) 09/03/18 22:16 NT-Pro-B Natriuret Pep 2534 pg/mL (0-900) H 09/03/18 22:16 - Imaging and Cardiology Chest x-ray: report reviewed (LUNGS / PLEURA: Increased interstitial markings bilaterally, unchanged. No pneumothorax. ), image reviewed Assessment and Plan Assessment and plan: 58 year old female with history of COPD, chronic respiratory failure on 3-3,5L home oxygen, CAD who presents to [facility] ED with c/o difficulty breathing. Upon arrival she was found to be hypoxic with saturation in low 80's. She was placed on BiPAP with slight improvement in saturation. Initial ABG 7.28/79.9/71/37.5. Acute on chronic hypoxic respiratory failure with hypercapnia COPD acute exacerbation Mild hyokalemia - 3.5 History of CAD Anxiety Tobacco abuse Acute chest pain- likely d/t COPD AE Plan: Continue supportive Care Currently on BiPaP Baseline home oxygen requirements of 3-3.5L Continue supplemental O2 wean as tolerated Start Solumedrol 80mg q 8hrs Scheduled Duo-Nebs, Brovana and Pulmicort; Albuterol prn Start Mucinex BID Monitor electrolytes, replete as needed Received po potassium 20Meq x1 Continue Effor and Buspar Xanax prn Continuos telemetry monitoring Troponin neg x1; will continue to trend Cardiology consult- pending DVT PPX on Lovenox Advance Directives: No VTE prophylaxis?: Chemical Plan of care discussed with patient/family: Yes
[2018-09-04] MEDS: SOLU-Medrol IV SCH ×3 (03:11→18:44)
[2018-09-04] MEDS ORDERED: PULMICORT IH SCH (08:00)
[2018-09-04] MEDS ORDERED: VENLAFAXINE HCL 100 MG PO SCH (08:00)
[2018-09-04] MEDS: EFFEXOR PO SCH ×6 (08:20→18:47)
[2018-09-04] MEDS: PULMICORT IH SCH ×2 (09:45→20:36)
[2018-09-04] MEDS: BROVANA NEBU IH SCH ×2 (09:45→20:39)
[2018-09-04] MEDS: DUONEB *Not for PRN Use IH SCH ×4 (09:53→20:36)
--- NOTE | 2018-09-04 10:41 | Consultation ---
History of Present Illness Consult date: 09/04/18 Consult reason: chest pain History of present illness: This is a 58-year old woman with COPD on home oxygen who presents with chest pain, shortness of breath, admitted with hypoxia and COPD exacerbation. Cardiac consultation has been requested. Patient has a history of coronary artery disease but does not follow with a associate principal as an outpatient. In 2017 a cardiac cath revealed complete occlusion of the RCA that was recommend for medical therapy. She did undergo PCI of the LAD with bare metal stent. In addition, patient has a history of paroxysmal atrial fibrillation, previously considered not a candidate for anticoagulation due to melena and severe anemia. Her latest echocardiogram reports a normal LV ejection fraction 55-60%. An ECG shows sinus rhythm, no acute ischemic changes. Past History Past Medical History: COPD (on chronic home O2 3-3.5L), GERD, liver disease, other (depression, anxiety) Past Surgical History: Other (stents, Back surgery) Social history: other ( Former Smoker) Family history: no significant family history Medications and Allergies Allergies Allergy/AdvReac Type Severity Reaction Status Date / Time hydromorphone [From Dilaudid] Allergy Unknown Verified 03/01/18 21:50 phenobarbital Allergy Unknown Verified 10/28/14 09:33 Home Medications Medication Instructions Recorded Confirmed Last Taken Type Venlafaxine HCl [Venlafaxine] 100 mg PO TIDWM #30 tablet 07/16/16 09/04/18 1 Day Ago Rx ~08/13/16 ALBUTEROL NEB's [Proventil 0.083% 2.5 mg IH Q4HRT PRN #30 nebu 06/19/18 09/04/18 Unknown Rx NEBS] ALPRAZolam [Xanax TAB] 0.25 mg PO Q8H PRN #15 tablet 06/19/18 09/04/18 Unknown Rx Acetaminophen [Acetaminophen TAB] 650 mg PO Q6H PRN tablet 06/19/18 09/04/18 Unknown Rx Baclofen [Lioresal] 10 mg PO BID #60 tab 06/19/18 09/04/18 Unknown Rx busPIRone [Buspar] 5 mg PO BID #60 tab 06/19/18 09/04/18 Unknown Rx Arformoterol Nebu [Brovana Nebu] 15 mcg IH Q12HRT #30 ml 08/19/18 09/04/18 Unknown Rx Budesonide [Pulmicort Respules] 0.5 mg IH Q12HRT #30 nebu 08/19/18 09/04/18 Un known Rx HYDROcodone/APAP 5-325 [[place] 1 each PO Q4H PRN #7 tablet 08/19/18 09/04/18 Unknown Rx 5-325 mg TAB] Ipratropium/Albuterol Sulfate 1 ampul IH BIDRT #30 ampul.neb 08/19/18 09/04/18 U nknown Rx [DUONEB *Not for PRN Use*] Pantoprazole [Protonix TAB] 40 mg PO QDAY #30 tab 08/19/18 09/04/18 Unknown Rx Active Meds: Active Medications Acetaminophen (Tylenol) 650 mg PO Q4H PRN PRN Reason: Pain MILD(1-3)/Fever >100.5/PRAJAPATI Acetaminophen/Hydrocodone Bitart ([place] 5/325) 1 each PO Q4H PRN PRN Reason: Pain, Moderate (4-6) Albuterol (Proventil) 2.5 mg IH Q3HRT PRN PRN Reason: Shortness Of Breath Albuterol/Ipratropium (Duoneb *Not For Prn Use*) 1 ampul IH Q6HRT [facility] Last Admin: 09/04/18 10:25 Dose: Not Given Documented by: Alprazolam (Xanax) 0.25 mg PO Q8H PRN PRN Reason: Anxiety Arformoterol Tartrate (Brovana Nebu) 15 mcg IH Q12HRT [facility] Last Admin: 09/04/18 09:45 Dose: 15 mcg Documented by: Baclofen (Lioresal) 10 mg PO BID [facility] Budesonide (Pulmicort) 0.5 mg IH Q12HRT [facility] Last Admin: 09/04/18 09:45 Dose: 0.5 mg Documented by: Buspirone HCl (Buspar) 5 mg PO BID [facility] Enoxaparin Sodium (Lovenox) 40 mg SUB-Q QDAY [facility] Guaifenesin (Mucinex Er) 600 mg PO BID [facility] Methylprednisolone Sodium Succinate (Solu-Medrol) 80 mg IV Q8H [facility] Last Admin: 09/04/18 03:11 Dose: 80 mg Documented by: Nicotine (Habitrol) 21 mg TD DAILY [facility] Ondansetron HCl (Zofran) 4 mg IV Q8H PRN PRN Reason: Nausea And Vomiting Pantoprazole Sodium (Protonix) 40 mg PO QDAY [facility] Sodium Chloride (Sodium Chloride Flush Syringe 10 Ml) 10 ml IV BID [facility] Sodium Chloride (Sodium Chloride Flush Syringe 10 Ml) 10 ml IV PRN PRN PRN Reason: LINE FLUSH Venlafaxine HCl (Effexor) 75 mg PO TIDWM [facility] Last Admin: 09/04/18 08:20 Dose: 75 mg Documented by: Venlafaxine HCl (Effexor) 25 mg PO TIDWM [facility] Last Admin: 09/04/18 08:20 Dose: 25 mg Documented by: Physical Examination Vital Signs Temp 98.5 F 09/03/18 21:46 General appearance: no acute distress HEENT: Positive: PERRL Cardiac: Positive: Reg Rate and Rhythm Lungs: Positive: Decreased Breath Sounds Results 09/03/18 22:16 09/03/18 22:16 Cardiac Enzymes 09/03/18 Range/Units 22:16 CK-MB (CK-2) 3.3 (0.0-4.0) ng/mL Coagulation 09/03/18 Range/Units 22:16 PT 12.9 (12.2-14.9) Sec. INR 1.00 (0.87-1.13) APTT 29.3 (24.2-36.6) Sec. CBC 09/03/18 Range/Units 22:16 WBC 9.7 (4.5-11.0) K/mm3 RBC 4.33 (3.65-5.03) M/mm3 Hgb 10.4 (10.1-14.3) gm/dl Hct 34.9 (30.3-42.9) % Plt Count 163 (140-440) K/mm3 Lymph # 1.1 L (1.2-5.4) K/mm3 [place] # 1.3 H (0.0-0.8) K/mm3 Eos # 0.1 (0.0-0.4) K/mm3 Baso # 0.1 (0.0-0.1) K/mm3 Comprehensive Metabolic Panel 09/03/18 Range/Units 22:16 Sodium 144 (137-145) mmol/L Potassium 3.5 L (3.6-5.0) mmol/L Chloride 102.7 (98-107) mmol/L Carbon Dioxide 33 H (22-30) mmol/L BUN 11 (7-17) mg/dL Creatinine 0.3 L (0.7-1.2) mg/dL Glucose 89 (65-100) mg/dL Calcium 8.5 (8.4-10.2) mg/dL Assessment and Plan COPD exacerbation Hypoxic respiratory failure Chest pain, atypical Coronary artery disease EF 50-55% cy echocardiogram 08/2016 Hx of COPD on home oxygen Paroxysmal afib/multifocal atrial tachycardia currently in sinus rhythm not on anticoagulation secondary to melena and anemia. Chronic pain
[2018-09-04] MEDS: PROTONIX PO SCH (11:31)
[2018-09-04] MEDS: LIORESAL PO SCH ×2 (11:32→21:51)
[2018-09-04] MEDS: LOVENOX SUB-Q SCH (11:32)
[2018-09-04] MEDS: MUCINEX ER PO SCH ×2 (11:33→21:51)
[2018-09-04] MEDS: BUSPAR PO SCH ×2 (11:33→21:51)
[2018-09-04] MEDS: HABITROL TD SCH (11:43)
[2018-09-04] MEDS: SODIUM CHLORIDE FLUSH SYRINGE 10 ML IV SCH ×2 (11:45→21:51)
--- NOTE | 2018-09-04 13:06 | Consultation ---
History of Present Illness Consult date: 09/04/18 Requesting physician: LOLIS MEDINA Reason for consult: COPD, hypoxemia, other (acute on chronic respiratory failure) History of present illness: 58 year old female with history of COPD, chronic respiratory failure on 3-3,5L home oxygen, CAD who presents to [facility] ED with c/o difficulty breathing. Pt stated that she started experiencing SOB yesterday afternoon. She tried taking a few breathing treatments with no relief, so she decided to call EMS. Upon EMS arrival she was found to be hypoxic with saturations in 80's. Pt also complained on non radiating left sided chest pain. She denies radiation of pain. She continues to smoke cigarettes She was admitted and I have been consulted for acute on chronic hypoxic respiratory failure, Severe AE-COPD Patient was seen and examined. Vitals, labs, medications, chart and imaging reviewed She denies sputum production, fever, or hempotysis Past History Past Medical History: COPD (on chronic home O2 3-3.5L), GERD, liver disease, other (depression, anxiety) Past Surgical History: Other (stents, Back surgery) Social history: other ( Former Smoker) Family history: no significant family history Medications and Allergies Allergies Allergy/AdvReac Type Severity Reaction Status Date / Time hydromorphone [From Dilaudid] Allergy Unknown Verified 03/01/18 21:50 phenobarbital Allergy Unknown Verified 10/28/14 09:33 Home Medications Medication Instructions Recorded Confirmed Last Taken Type Venlafaxine HCl [Venlafaxine] 100 mg PO TIDWM #30 tablet 07/16/16 09/04/18 1 Day Ago Rx ~08/13/16 ALBUTEROL NEB's [Proventil 0.083% 2.5 mg IH Q4HRT PRN #30 nebu 06/19/18 09/04/18 Unknown Rx NEBS] ALPRAZolam [Xanax TAB] 0.25 mg PO Q8H PRN #15 tablet 06/19/18 09/04/18 Unknown Rx Acetaminophen [Acetaminophen TAB] 650 mg PO Q6H PRN tablet 06/19/18 09/04/18 Unknown Rx Baclofen [Lioresal] 10 mg PO BID #60 tab 06/19/18 09/04/18 Unknown Rx busPIRone [Buspar] 5 mg PO BID #60 tab 06/19/18 09/04/18 Unknown Rx Arformoterol Nebu [Brovana Nebu] 15 mcg IH Q12HRT #30 ml 08/19/18 09/04/18 Unknown Rx Budesonide [Pulmicort Respules] 0.5 mg IH Q12HRT #30 nebu 08/19/18 09/04/18 Unknown Rx HYDROcodone/APAP 5-325 [[place] 1 each PO Q4H PRN #7 tablet 08/19/18 09/04/18 Unknown Rx 5-325 mg TAB] Ipratropium/Albuterol Sulfate 1 ampul IH BIDRT #30 ampul.neb 08/19/18 09/04/18 Unknown Rx [DUONEB *Not for PRN Use*] Pantoprazole [Protonix TAB] 40 mg PO QDAY #30 tab 08/19/18 09/04/18 Unknown Rx Active Meds: Active Medications Acetaminophen (Tylenol) 650 mg PO Q4H PRN PRN Reason: Pain MILD(1-3)/Fever >100.5/PRAJAPATI Acetaminophen/Hydrocodone Bitart ([place] 5/325) 1 each PO Q4H PRN PRN Reason: Pain, Moderate (4-6) Albuterol (Proventil) 2.5 mg IH Q3HRT PRN PRN Reason: Shortness Of Breath Albuterol/Ipratropium (Duoneb *Not For Prn Use*) 1 ampul IH Q6HRT [facility] Last Admin: 09/04/18 10:25 Dose: Not Given Documented by: Alprazolam (Xanax) 0.25 mg PO Q8H PRN PRN Reason: Anxiety Arformoterol Tartrate (Brovana Nebu) 15 mcg IH Q12HRT [facility] Last Admin: 09/04/18 09:45 Dose: 15 mcg Documented by: Aspirin (Halfprin Ec) 81 mg PO QDAY [facility] Atenolol (Tenormin) 25 mg PO QDAY [facility] Atorvastatin Calcium (Lipitor) 40 mg PO QHS [facility] Baclofen (Lioresal) 10 mg PO BID [facility] Last Admin: 09/04/18 11:32 Dose: 10 mg Documented by: Budesonide (Pulmicort) 0.5 mg IH Q12HRT [facility] Last Admin: 09/04/18 09:45 Dose: 0.5 mg Documented by: Buspirone HCl (Buspar) 5 mg PO BID [facility] Last Admin: 09/04/18 11:33 Dose: 5 mg Documented by: Enoxaparin Sodium (Lovenox) 40 mg SUB-Q QDAY [facility] Last Admin: 09/04/18 11:32 Dose: 40 mg Documented by: Guaifenesin (Mucinex Er) 600 mg PO BID [facility] Last Admin: 09/04/18 11:33 Dose: 600 mg Documented by: Isosorbide Mononitrate (Imdur) 30 mg PO QDAY [facility] Methylprednisolone Sodium Succinate (Solu-Medrol) 80 mg IV Q8H [facility] Last Admin: 09/04/18 11:42 Dose: 80 mg Documented by: Nicotine (Habitrol) 21 mg TD DAILY [facility] Last Admin: 09/04/18 11:43 Dose: 21 mg Documented by: Ondansetron HCl (Zofran) 4 mg IV Q8H PRN PRN Reason: Nausea And Vomiting Pantoprazole Sodium (Protonix) 40 mg PO QDAY [facility] Last Admin: 09/04/18 11:31 Dose: 40 mg Documented by: Pneumococcal Polyvalent Vaccine (Pneumovax 23) 0.5 ml IM .ONCE ONE Stop: 09/04/18 16:01 Sodium Chloride (Sodium Chloride Flush Syringe 10 Ml) 10 ml IV BID [facility] Last Admin: 09/04/18 11:45 Dose: 10 ml Documented by: Sodium Chloride (Sodium Chloride Flush Syringe 10 Ml) 10 ml IV PRN PRN PRN Reason: LINE FLUSH Venlafaxine HCl (Effexor) 75 mg PO TIDWM [facility] Last Admin: 09/04/18 11:34 Dose: 75 mg Documented by: Venlafaxine HCl (Effexor) 25 mg PO TIDWM [facility] Last Admin: 09/04/18 11:35 Dose: 25 mg Documented by: Review of Systems All systems: negative Constitutional: no weight loss, no weight gain, no fever, no chills, no night sweats Cardiovascular: chest pain, shortness of breath, no orthopnea, no palpitations, no rapid/irregular heart beat, no edema, no syncope, no lightheadedness Respiratory: cough, shortness of breath, wheezing, no cough with sputum, no excessive sputum, no hemoptysis, no congestion Gastrointestinal: no abdominal pain, no nausea, no vomiting, no constipation Neurological: no transient paralysis, no paralysis, no weakness, no parathesias, no numbness, no seizures, no syncope, no tremors Physical Examination Vital signs: Vital Signs Temp 98.5 F 09/03/18 21:46 Physical exam General appearance: Present: mild distress, drowsy but easily aroused, chr onically ill looking adult female Sitting up in bed with moderate respiratory distress - EENT Eyes: Present: PERRL, EOM intact ENT: hearing intact, poor dentition - Neck Neck: Present: supple, normal ROM - Respiratory Respiratory effort: labored, on 4L NC Respiratory: Wheezing with poor air movement - Cardiovascular Heart rate: (bpm) Rhythm: regular Heart Sounds: Present: S1 & S2. Absent: rub, click - Extremities Extremities: no ischemia, pulses intact, - Peripheral Assessment Peripheral Pulses: within normal limits - Abdominal General gastrointestinal: soft, non-tender, normal bowel sounds - Integumentary Integumentary: Present: warm, dry - Musculoskeletal Musculoskeletal: generalized weakness - Psychiatric Psychiatric: cooperative Results - Laboratory Findings CBC and BMP: 09/05/18 03:55 09/05/18 03:55 ABG POC ABG pH 7.280 (7.35-7.45) L 09/03/18 23:45 POC ABG pO2 71 (80-105) L 09/03/18 23:45 POC ABG HCO3 37.5 (22-26 mml/L) 09/03/18 23:45 POC ABG Total CO2 40 (23-27mmol/L) 09/03/18 23:45 POC ABG O2 Sat 91 09/03/18 23:45 PT/INR, D-dimer PT 12.9 Sec. (12.2-14.9) 09/03/18 22:16 INR 1.00 (0.87-1.13) 09/03/18 22:16 Abnormal lab findings: Abnormal Labs 09/03/18 09/03/18 09/03/18 22:16 22:16 23:45 MCH 24 L RDW 19.8 H Lymph % (Auto) 10.9 L [place] % (Auto) 13.4 H Lymph # 1.1 L [place] # 1.3 H Seg Neutrophils % 74.1 H POC ABG pH 7.280 L POC ABG pO2 71 L Potassium 3.5 L Carbon Dioxide 33 H Creatinine 0.3 L CK-MB (CK-2) Rel Index 6.6 H NT-Pro-B Natriuret Pep 2534 H - Diagnostic Findings Chest x-ray: image reviewed (Hardware is spine, kyphotic, increaed interstitial markings) Assessment and Plan Acute on chronic hypoxic respiratory failure with hypercapnia COPD exacerbation Hypokalemia, mild Chest pain Tobacco use disorder -ABG in am, oxygen restrictive strategies -Steroids -Bronchodilators(TYLOR/BLANCHE) -Supplemental oxygen to keep O2 sats 88-90% -VTE prophylaxis -Azithromycin for anti-inflammatory properties -Outpatient evaluation for nocturnal NIV -Chest pain work up per cardiology -Echocardiogram to evaluate for pulmonary HTN -Analgesia management -Smoking cessation counselling done for 7 minutes at the bedside CONDITION: CRITICAL PROGNOSIS: GUARDED CODE STATUS: FULL CODE The high probability of a clinically significant, sudden or life-threatening deterioration of the [respiratory, cardiovascular ] system(s) required my full and direct attention, intervention and personal management. The aggregate critical care time was [30] minutes without overlap. Time includes spent on; [x] Data Review and interpretation [x] Patient assessment and monitoring of vital signs [x] Documentation [x] Medication orders and management
--- NOTE | 2018-09-04 15:05 | Event Note ---
Date: 09/04/18 patient admitted earlier this morning for the management of COPD exacerbation. Seen and evaluated this morning. patient showed improvement. Continue management as outlined on H/P.
[2018-09-04] MEDS: HALFPRIN EC PO SCH (15:44)
[2018-09-04] MEDS: TENORMIN PO SCH (15:44)
[2018-09-04] MEDS: IMDUR PO SCH (15:53)
[2018-09-04] MEDS ORDERED: PNEUMOVAX 23 IM ONE (16:00)
[2018-09-05] MEDS: SOLU-Medrol IV SCH ×2 (01:32→10:37)
[2018-09-05] MEDS: DUONEB *Not for PRN Use IH SCH ×3 (03:22→15:30)
[2018-09-05 04:48] LABS: Hematocrit 32.8 % (30.3-42.9); Mean Corpuscular HGB Conc 31 % (30-34); Mean Corpuscular Volume 78 fl (79-97); Platelet Count 154 K/mm3 (140-440); Red Blood Count 4.21 M/mm3 (3.65-5.03); Red Cell Distribution Width 19.9 % (13.2-15.2)
[2018-09-05 05:32] LABS: BUN/Creatinine Ratio 43; Blood Urea Nitrogen 17 mg/dL (7-17); Calcium 9.3 mg/dL (8.4-10.2); Hemolysis Index 2
--- NOTE | 2018-09-05 06:22 | Progress Note ---
Assessment and Plan Acute on chronic hypoxic respiratory failure with hypercapnia COPD exacerbation Hypokalemia, mild Chest pain Tobacco use disorder -ABG in am, oxygen restrictive strategies -Steroids -Bronchodilators(TYLOR/BLANCHE) -Supplemental oxygen to keep O2 sats 88-90% -VTE prophylaxis -Azithromycin for anti-inflammatory properties -Outpatient evaluation for nocturnal NIV -Chest pain work up per cardiology -Echocardiogram to evaluate for pulmonary HTN -Analgesia management -Smoking cessation counselling done for 7 minutes at the bedside Discharge planning per primary service. Needs close outpatient follow up at risk for re-admission CONDITION: CRITICAL PROGNOSIS: GUARDED CODE STATUS: FULL CODE Subjective Date of service: 09/05/18 Interval history: Patient is seen today for: Acute on chronic hypoxic respiratory failure with hypercapnia; COPD exacerbation Seen and examined at bedside; 24hour events reviewed; nursing and respiratory c are staff consulted; no adverse overnight events reported to me; she states she is feeling better, no fevers or chills. No abdominal pain, no nausea or vomiting. No diarrhea. States she feels much better and wants to go home. Vitals, labs, medications, chart reviewed. Objective - Exam Narrative Exam: Vitals: Reviewed General appearance: Present: mild distress,chronically ill looking adult female Sitting up in bed with mild respiratory distress, kyphotic - EENT Eyes: Present: PERRL, EOM intact ENT: hearing intact, poor dentition - Neck Neck: Present: supple, normal ROM - Respiratory Respiratory effort: on 3L NC Respiratory: Decreased AE bialterally, long expiratory phase - Cardiovascular Heart rate: (bpm) Rhythm: regular Heart Sounds: Present: S1 & S2. Absent: rub, click - Extremities Extremities: no ischemia, pulses intact, - Peripheral Assessment Peripheral Pulses: within normal limits - Abdominal General gastrointestinal: soft, non-tender, normal bowel sounds - Integumentary Integumentary: Present: warm, dry - Musculoskeletal Musculoskeletal: generalized weakness - Psychiatric Psychiatric: cooperative. Vital Signs - 12hr 09/04/18 09/04/18 09/04/18 18:44 20:38 20:57 Temperature 97.8 F Pulse Rate 69 Pulse Rate [ 78 Anterior Bilateral Throughout] Respiratory 22 Rate Respiratory 20 Rate [Anterior Bilateral Throughout] Blood Pressure 134/52 O2 Sat by Pulse 86 91 Oximetry 09/04/18 09/05/18 23:07 03:25 Temperature 98.1 F Pulse Rate 79 Pulse Rate [ 73 Anterior Bilateral Throughout] Respiratory 18 Rate Respiratory 22 Rate [Anterior Bilateral Throughout] Blood Pressure 115/62 O2 Sat by Pulse 94 Oximetry CBC and BMP: 09/05/18 03:55 09/05/18 03:55 ABG, PT/INR, D-dimer: ABG POC ABG pH 7.280 (7.35-7.45) L 09/03/18 23:45 POC ABG pO2 71 (80-105) L 09/03/18 23:45 POC ABG HCO3 37.5 (22-26 mml/L) 09/03/18 23:45 POC ABG Total CO2 40 (23-27mmol/L) 09/03/18 23:45 POC ABG O2 Sat 91 09/03/18 23:45 PT/INR, D-dimer PT 12.9 Sec. (12.2-14.9) 09/03/18 22:16 INR 1.00 (0.87-1.13) 09/03/18 22:16 Abnormal lab findings: Abnormal Labs 09/03/18 09/03/18 09/03/18 22:16 22:16 23:45 Hgb MCV MCH 24 L RDW 19.8 H Lymph % (Auto) 10.9 L [place] % (Auto) 13.4 H Lymph # 1.1 L [place] # 1.3 H Seg Neutrophils % 74.1 H POC ABG pH 7.280 L POC ABG pO2 71 L Potassium 3.5 L Carbon Dioxide 33 H Creatinine 0.3 L Glucose CK-MB (CK-2) Rel Index 6.6 H NT-Pro-B Natriuret Pep 2534 H 09/05/18 09/05/18 03:55 03:55 Hgb 10.0 L MCV 78 L MCH 24 L RDW 19.9 H Lymph % (Auto) [place] % (Auto) Lymph # [place] # Seg Neutrophils % POC ABG pH POC ABG pO2 Potassium Carbon Dioxide 34 H Creatinine 0.4 L Glucose 117 H CK-MB (CK-2) Rel Index NT-Pro-B Natriuret Pep
[2018-09-05 06:23] LABS: Anisocytosis 1+; Basophils % (Manual) 0 % (0.0-1.8); Eosinophils % (Manual) 0 % (0.0-4.3); Hypochromasia 1+; Macrocytosis Few; Total Cells Counted 100
[2018-09-05 06:24] LABS: Platelet Estimate Consistent w Auto; Stomatocytes Few
[2018-09-05] MEDS: BROVANA NEBU IH SCH (08:41)
[2018-09-05] MEDS: PULMICORT IH SCH (08:41)
--- NOTE | 2018-09-05 09:48 | Discharge Summary ---
Providers - Providers Date of Admission: 09/04/18 00:13 Attending physician: LOLIS MEDINA MD 09/04/18 00:57 Consult to Physician [CONS] Routine Comment: Consulting Provider: JENNA MATTHEWS Physician Instructions: Reason For Exam: chest pain 09/04/18 00:58 Consult to Physician [CONS] Routine Comment: Consulting Provider: PARESH GAINES Physician Instructions: Reason For Exam: copd 09/04/18 12:26 Consult to Dietitian/Nutrition [CONS] Routine Physician Instructions: Reason For Exam: Reason for Consult: Pt needs oral supplement Primary care physician: SAW EDGE [facility] Hospital[facility] Reason for admission: COPD exacerbation, acute on chronic respiratory failure Condition: Stable Pertinent studies: CXR Hospital course: 58 year old female with history of COPD, chronic respiratory failure on 5L home oxygen, CAD who presents to [facility] ED with c/o difficulty breathing. Patient stated that she started experiencing SOB yesterday afternoon. She tried taking a few breathing treatments with no relief, so she decided to call EMS. Upon EMS arrival she was found to be hypoxic with saturations in 80's. Patient also complained on non radiating left sided chest pain. She denies radiation of pain. Patient was admitted to the floor and was treated appropriately for acute on chronic respiratory failure, COPD exacerbation and improved. Patient was hemodynamically stable at the time of discharge. Appropriate medication scripts were given at the time of discharge. Disposition: - TO HOME OR SELFCARE Time spent for discharge: 32 minutes - Discharge Diagnoses (1) COPD exacerbation Status: Chronic (2) Acute on chronic respiratory failure with hypoxia and hypercapnia Status: Chronic Core Measure Documentation - Palliative Care Palliative Care/ Comfort Measures: Not Applicable - Core Measures Any of the following diagnoses?: none Exam - Physical Exam Narrative exam: Not in cardiopulmonary distress. The patient appeared well nourished and normally developed. Vital signs as documented. Head exam is unremarkable. No scleral icterus . Neck is without jugular venous distension, thyromegaly, or carotid bruits. Lungs are clear to auscultation. Cardiac exam reveals regular rate and Rhythm. Abdominal exam reveals normal bowel sounds, no masses, no organomegaly and no aortic enlargement. Extremities are nonedematous and both femoral and pedal pulses are normal. SENIOR DENTIST: Alert and oriented 3. No focal weakness. - Constitutional Vitals: Temp Pulse Resp BP Pulse Ox 98.1 F 75 17 133/63 93 09/05/18 04:28 09/05/18 08:41 09/05/18 08:41 09/05/18 04:28 09/05/18 04:28 Plan Activity: no restrictions Weight Bearing Status: Full Weight Bearing Diet: low cholesterol Follow up with: PRIMARY MD CARMELLA [Primary Care Provider] - 7 Days KELLI HERNÁNDEZ MD [Staff Physician] - 7 Days Prescriptions: Prednisone [predniSONE 5 mg (6-Day Pack, 21 Tabs)] 5 mg PO .TAPER #1 tab.ds.pk Azithromycin [Zithromax TAB] 250 mg PO QDAY #4 tablet
[2018-09-05] MEDS ORDERED: ZITHROMAX PO SCH (10:00)
[2018-09-05] MEDS: EFFEXOR PO SCH ×4 (10:20→14:02)
[2018-09-05] MEDS: HABITROL TD SCH (10:25)
[2018-09-05] MEDS: MUCINEX ER PO SCH (10:25)
[2018-09-05] MEDS: LOVENOX SUB-Q SCH (10:25)
[2018-09-05] MEDS: IMDUR PO SCH (10:26)
[2018-09-05] MEDS: LIORESAL PO SCH (10:26)
[2018-09-05] MEDS: BUSPAR PO SCH (10:26)
[2018-09-05] MEDS: TENORMIN PO SCH (10:27)
[2018-09-05] MEDS: PROTONIX PO SCH (10:27)
[2018-09-05] MEDS: HALFPRIN EC PO SCH (10:29)
[2018-09-05] MEDS: SODIUM CHLORIDE FLUSH SYRINGE 10 ML IV SCH (10:38)
--- NOTE | 2018-09-05 10:49 | Progress Note ---
Assessment and Plan - Patient Problems (1) Shortness of breath Current Visit: Yes Status: Acute Plan to address problem: Shortness of breath due to COPD extubation, continue COPD management. Patient is stable for cardiac discharge, we will recommend echocardiogram to be done as an outpatient. Follow-up in our office in 7-10 days. Subjective Date of service: 09/05/18 Interval history: The patient looks and feels comfortable, shortness of breath has resolved, she is planned for discharge today. Echocardiogram was not done yet as ordered, we will recommend echo to be rescheduled for the outpatient setting. No new cardiac complaints. Objective Vital Signs Temp Pulse Pulse Pulse Resp Resp Resp 09/05/18 10:27 63 09/05/18 10:26 63 09/05/18 08:41 83 75 22 17 09/05/18 04:28 98.1 F 63 20 09/05/18 03:25 73 22 09/04/18 23:07 98.1 F 79 18 09/04/18 20:57 78 20 09/04/18 20:38 09/04/18 18:44 97.8 F 69 22 09/04/18 14:54 77 20 09/04/18 12:00 22 09/04/18 11:20 105 H 17 09/04/18 11:10 99 H 14 09/04/18 11:00 100 H 19 09/04/18 10:50 102 H 26 H BP Pulse Ox 09/05/18 10:27 133/63 09/05/18 10:26 133/63 09/05/18 08:41 09/05/18 04:28 133/63 93 09/05/18 03:25 09/04/18 23:07 115/62 94 09/04/18 20:57 09/04/18 20:38 91 09/04/18 18:44 134/52 86 09/04/18 14:54 92 09/04/18 12:00 90 09/04/18 11:20 153/100 90 09/04/18 11:10 151/97 96 09/04/18 11:00 151/97 96 09/04/18 10:50 134/91 96 - Physical Examination General: No Apparent Distress HEENT: Positive: PERRL Neck: Positive: neck supple Cardiac: Positive: Reg Rate and Rhythm Lungs: Positive: Decreased Breath Sounds Neuro: Positive: Grossly Intact Abdomen: Positive: Soft Skin: Positive: Clear Extremities: Absent: edema - Labs and Meds CBC 09/05/18 Range/Units 03:55 WBC 8.8 (4.5-11.0) K/mm3 RBC 4.21 (3.65-5.03) M/mm3 Hgb 10.0 L (10.1-14.3) gm/dl Hct 32.8 (30.3-42.9) % Plt Count 154 (140-440) K/mm3 Comprehensive Metabolic Panel 09/05/18 Range/Units 03:55 Sodium 144 (137-145) mmol/L Potassium 3.9 (3.6-5.0) mmol/L Chloride 100.2 (98-107) mmol/L Carbon Dioxide 34 H (22-30) mmol/L BUN 17 (7-17) mg/dL Creatinine 0.4 L (0.7-1.2) mg/dL Glucose 117 H (65-100) mg/dL Calcium 9.3 (8.4-10.2) mg/dL
[2018-09-05 13:43] VITALS: BP 143/55
== END 2018-09-05 15:30 | disposition home or self-care (01) | DRG 189 ==
LOC: ED 21:44 → IMCU 09-04 00:13 → 3A 09-04 08:45
PROVIDERS: ADMIT Internal Medicine; ATTEND Internal Medicine
PROC: 4A033R1 Measurement of Arterial Saturation, Peripheral, Percutaneous Approach (ICD-10-PCS; 2018-09-03)
PROC: 5A09357 Assistance with Respiratory Ventilation, Less than 24 Consecutive Hours, Continuous Positive Airway Pressure (ICD-10-PCS; 2018-09-03)
PROC: 3E0234Z Introduction of Serum, Toxoid and Vaccine into Muscle, Percutaneous Approach (ICD-10-PCS; principal; 2018-09-04)
DX: J96.21 Acute and chronic respiratory failure with hypoxia (principal); J44.1 Chronic obstructive pulmonary disease with (acute) exacerbation; J96.22 Acute and chronic respiratory failure with hypercapnia; I10 Essential (primary) hypertension; I25.2 Old myocardial infarction; K21.9 Gastro-esophageal reflux disease without esophagitis; F32.9 Major depressive disorder, single episode, unspecified; F41.9 Anxiety disorder, unspecified; E87.6 Hypokalemia; R07.89 Other chest pain; I48.0 Paroxysmal atrial fibrillation; D64.9 Anemia, unspecified; Z95.5 Presence of coronary angioplasty implant and graft; Z90.49 Acquired absence of other specified parts of digestive tract; Z99.81 Dependence on supplemental oxygen; Z87.891 Personal history of nicotine dependence; Z23 Encounter for immunization
CPT/HCPCS: 36415; 71045; 80048; 82550; 82553; 82803; 83880; 84484; 85007; 85025; 85610; 85730; 90732; 93005; 93010; 94640; 94644; 94760; 99406; G0378; A9270-GY; J1650; J2920; J2930; J3475

== ENCOUNTER 2018-09-15 21:54 | Inpatient (IN) | payer MEDICARE ==
[2018-09-15] MEDS ORDERED: ASPIRIN PO ONE (22:08)
[2018-09-15] MEDS ORDERED: PROVENTIL IH ONE (22:17)
[2018-09-15] MEDS ORDERED: ATROVENT IH ONE (22:17)
--- NOTE | 2018-09-15 22:25 | Emergency Department Report ---
ED Shortness of Breath HPI - General Chief Complaint: Dyspnea/Respdistress Stated Complaint: KAYA Time Seen by Provider: 09/15/18 22:16 Source: patient, family, EMS Mode of arrival: Stretcher Limitations: No Limitations - History of Present Illness Initial Comments: 58-year-old female who issues COPD presents to ED with shortness of breath started tonight. Patient lives with her sister who reports patient had O2 sats in the 60s on her 3 L of O2. EMS confirms O2 sats in the 60s. They gave albuterol meds and Solu-Medrol and transported patient to the ER. Report O2 sats improved with nebulizer treatment. The patient is currently lethargic, answers some questions. Sister believes this is due to her hypoxia. Patient denies fever or chest pain. Reports cough. MD Complaint: shortness of breath -: This evening Severity: moderate Consistency: constant Improves With: oxygen, bronchodilators Worsens With: nothing Known History Of: COPD Associated Symptoms: cough Treatments Prior to Arrival: oxygen, bronchodilator - Related Data Home Oxygen Therapy: Yes Home Oxygen Amount: 3 Liters Previous Rx's Medication Instructions Recorded Last Taken Type Venlafaxine HCl [Venlafaxine] 100 mg PO TIDWM #30 tablet 07/16/16 1 Day Ago Rx ~08/13/16 ALBUTEROL NEB's [Proventil 0.083% 2.5 mg IH Q4HRT PRN #30 nebu 06/19/18 Unknown Rx NEBS] ALPRAZolam [Xanax TAB] 0.25 mg PO Q8H PRN #15 tablet 06/19/18 Unknown Rx Acetaminophen [Acetaminophen TAB] 650 mg PO Q6H PRN tablet 06/19/18 Unknown Rx Baclofen [Lioresal] 10 mg PO BID #60 tab 06/19/18 Unknown Rx busPIRone [Buspar] 5 mg PO BID #60 tab 06/19/18 Unknown Rx Arformoterol Nebu [Brovana Nebu] 15 mcg IH Q12HRT #30 ml 08/19/18 Unknown Rx Budesonide [Pulmicort Respules] 0.5 mg IH Q12HRT #30 nebu 08/19/18 Unknown Rx HYDROcodone/APAP 5-325 [[place] 1 each PO Q4H PRN #7 tablet 08/19/18 Unknown Rx 5-325 mg TAB] Ipratropium/Albuterol Sulfate 1 ampul IH BIDRT #30 ampul.neb 08/19/18 Unknown Rx [DUONEB *Not for PRN Use*] Pantoprazole [Protonix TAB] 40 mg PO QDAY #30 tab 08/19/18 Unknown Rx Azithromycin [Zithromax TAB] 250 mg PO QDAY #4 tablet 09/05/18 Unknown Rx Prednisone [predniSONE 5 mg (6-Day 5 mg PO .TAPER #1 tab.ds.pk 09/05/18 Unknown Rx Pack, 21 Tabs)] Allergies Allergy/AdvReac Type Severity Reaction Status Date / Time hydromorphone [From Dilaudid] Allergy Unknown Verified 03/01/18 21:50 phenobarbital Allergy Unknown Verified 10/28/14 09:33 ED Review of Systems ROS: Stated complaint: KAYA Other details as noted in HPI Comment: All other systems reviewed and negative Constitutional: denies: chills, fever Respiratory: cough, shortness of breath Cardiovascular: denies: chest pain ED Past Medical Hx - Past Medical History Previous Medical History?: Yes Hx Hypertension: Yes Hx Heart Attack/AMI: Yes Hx Congestive Heart Failure: No (patient denies) Hx Diabetes: No Hx Deep Vein Thrombosis: No Hx GERD: Yes Hx Liver Disease: Yes Hx Psychiatric Treatment: Yes (depression and anxiety) Hx Asthma: No Hx COPD: Yes - Surgical History Past Surgical History?: Yes Hx Coronary Stent: Yes (2016) Hx Pacemaker: No Hx Internal Defibrillator: No Hx Appendectomy: Yes Additional Surgical History: heart stents, Back surgery - Social History Smoking Status: Former Smoker - Medications Home Medications: Home Medications Medication Instructions Recorded Confirmed Last Taken Type Venlafaxine HCl [Venlafaxine] 100 mg PO TIDWM #30 tablet 07/16/16 09/04/18 1 Day Ago Rx ~08/13/16 ALBUTEROL NEB's [Proventil 0.083% 2.5 mg IH Q4HRT PRN #30 nebu 06/19/18 09/04/18 Unknown Rx NEBS] ALPRAZolam [Xanax TAB] 0.25 mg PO Q8H PRN #15 tablet 06/19/18 09/04/18 Unknown Rx Acetaminophen [Acetaminophen TAB] 650 mg PO Q6H PRN tablet 06/19/18 09/04/18 Unknown Rx Baclofen [Lioresal] 10 mg PO BID #60 tab 06/19/18 09/04/18 Unknown Rx busPIRone [Buspar] 5 mg PO BID #60 tab 06/19/18 09/04/18 Unknown Rx Arformoterol Nebu [Brovana Nebu] 15 mcg IH Q12HRT #30 ml 08/19/18 09/04/18 Unk nown Rx Budesonide [Pulmicort Respules] 0.5 mg IH Q12HRT #30 nebu 08/19/18 09/04/18 Unknown Rx HYDROcodone/APAP 5-325 [[place] 1 each PO Q4H PRN #7 tablet 08/19/18 09/04/18 Unknown Rx 5-325 mg TAB] Ipratropium/Albuterol Sulfate 1 ampul IH BIDRT #30 ampul.neb 08/19/18 09/04/18 Unknown Rx [DUONEB *Not for PRN Use*] Pantoprazole [Protonix TAB] 40 mg PO QDAY #30 tab 08/19/18 09/04/18 Unknown Rx Azithromycin [Zithromax TAB] 250 mg PO QDAY #4 tablet 09/05/18 Unknown Rx Prednisone [predniSONE 5 mg (6-Day 5 mg PO .TAPER #1 tab.ds.pk 09/05/18 Unknown Rx Pack, 21 Tabs)] ED Physical Exam - General Limitations: No Limitations General appearance: lethargic - Head Head exam: Present: atraumatic, normocephalic - Eye Eye exam: Present: normal appearance - ENT ENT exam: Present: mucous membranes moist - Neck Neck exam: Present: normal inspection - Respiratory Respiratory exam: Present: respiratory distress, decreased breath sounds, other (tachypnea present) - Cardiovascular Cardiovascular Exam: Present: regular rate, normal rhythm - GI/Abdominal GI/Abdominal exam: Present: soft. Absent: distended, tenderness - Extremities Exam Extremities exam: Present: normal inspection. Absent: pedal edema, calf tenderness - Back Exam Back exam: Present: other (kyphosis present) - Neurological Exam Neurological exam: Present: other (lethargic, arousable, answers some questions) - Psychiatric Psychiatric exam: Present: normal affect, normal mood - Skin Skin exam: Present: warm, dry, intact, normal color ED Course Vital Signs 09/15/18 09/15/18 09/15/18 21:58 22:00 22:05 Temperature 99 F Pulse Rate 79 83 89 Pulse Rate [ Anterior Bilateral Upper Lobe] Respiratory 12 19 29 H Rate Respiratory Rate [Anterior Bilateral Upper Lobe] Blood Pressure 198/91 O2 Sat by Pulse 100 100 91 Oximetry 09/15/18 09/15/18 09/15/18 22:16 22:25 22:30 Temperature Pulse Rate 73 73 Pulse Rate [ Anterior Bilateral Upper Lobe] Respiratory 18 29 H 18 Rate Respiratory Rate [Anterior Bilateral Upper Lobe] Blood Pressure 198/62 129/49 O2 Sat by Pulse 93 92 94 Oximetry 09/15/18 09/15/18 09/15/18 22:46 22:53 23:00 Temperature Pulse Rate 76 85 Pulse Rate [ 79 Anterior Bilateral Upper Lobe] Respiratory 19 17 Rate Respiratory 16 Rate [Anterior Bilateral Upper Lobe] Blood Pressure 141/61 176/81 O2 Sat by Pulse 91 90 Oximetry 09/15/18 09/15/18 09/15/18 23:15 23:30 23:38 Temperature Pulse Rate 79 81 80 Pulse Rate [ Anterior Bilateral Upper Lobe] Respiratory 16 22 14 Rate Respiratory Rate [Anterior Bilateral Upper Lobe] Blood Pressure 143/59 109/45 109/45 O2 Sat by Pulse 100 100 100 Oximetry 09/15/18 09/16/18 09/16/18 23:46 00:00 00:16 Temperature Pulse Rate 78 72 77 Pulse Rate [ Anterior Bilateral Upper Lobe] Respiratory 20 17 17 Rate Respiratory Rate [Anterior Bilateral Upper Lobe] Blood Pressure 109/45 113/56 113/56 O2 Sat by Pulse 100 99 99 Oximetry 09/16/18 09/16/18 09/16/18 00:30 00:46 01:00 Temperature Pulse Rate 75 74 73 Pulse Rate [ Anterior Bilateral Upper Lobe] Respiratory 16 16 17 Rate Respiratory Rate [Anterior Bilateral Upper Lobe] Blood Pressure 110/50 110/50 118/52 O2 Sat by Pulse 98 98 98 Oximetry 09/16/18 09/16/18 09/16/18 01:16 01:30 01:46 Temperature Pulse Rate 72 75 78 Pulse Rate [ Anterior Bilateral Upper Lobe] Respiratory 16 19 18 Rate Respiratory Rate [Anterior Bilateral Upper Lobe] Blood Pressure 118/52 129/53 129/53 O2 Sat by Pulse 98 98 96 Oximetry 09/16/18 09/16/18 09/16/18 01:57 02:00 02:16 Temperature Pulse Rate 77 77 76 Pulse Rate [ Anterior Bilateral Upper Lobe] Respiratory 16 17 17 Rate Respiratory Rate [Anterior Bilateral Upper Lobe] Blood Pressure 129/53 131/55 131/55 O2 Sat by Pulse 98 94 95 Oximetry 09/16/18 09/16/18 09/16/18 02:30 02:46 03:00 Temperature Pulse Rate 77 77 78 Pulse Rate [ Anterior Bilateral Upper Lobe] Respiratory 19 19 18 Rate Respiratory Rate [Anterior Bilateral Upper Lobe] Blood Pressure 132/56 132/56 122/54 O2 Sat by Pulse 95 95 95 Oximetry - Reevaluation(s) Reevaluation #1: 09/15/18 23:02 CO2 of 63 on ABG. Likely the cause of pt's lethargy. Will initiate BiPAP. ED Medical Decision Making - Lab Data Result diagrams: 09/15/18 22:04 09/15/18 22:04 - EKG Data -: EKG Interpreted by Wi EKG shows normal: sinus rhythm, axis, intervals, QRS complexes, ST-T waves Rate: normal - EKG Data Interpretation: no acute changes - Radiology Data Radiology results: report reviewed, image reviewed - Medical Decision Making 58-year-old female presents to ED with COPD exacerbation. Per EMS, patient had O2 sats in the 60s upon arrival. Patient had presented to ED lethargic and tachypneic. ABG was obtained and showed the CO2 is 63. BiPAP initiated. CXR shows interstitial markings. There is no mention of CHF in last cardiology consult from approx 2 wks ago when pt was here, although it is listed in her history. Will treat at COPD exacerbation. Pt received solumedrol from EMS. One hour albuterol/ atrovent nebs here in ED. Will admit to hospitalist for further management. - Differential Diagnosis COPD, pneumonia, CO2 retention, CHF Critical Care Time: Yes Critical care time in (mins) excluding proc time.: 35 Critical care attestation.: If time is entered above; I have spent that time in minutes in the direct care of this critically ill patient, excluding procedure time. Critical Care Time: 35 minutes ED Disposition Clinical Impression: COPD exacerbation, Acute on chronic respiratory failure with hypoxia and hypercapnia Disposition: OP ADMIT IP TO THIS HOSP Is pt being admited?: Yes Condition: Stable Time of Disposition: 23:22
--- NOTE | 2018-09-15 22:49 | XRay Report ---
CHEST 1 VIEW INDICATION / CLINICAL INFORMATION: Chest Pain. COMPARISON: 09/03/2018 FINDINGS: SUPPORT DEVICES: None. HEART / MEDIASTINUM: Mild cardiomegaly LUNGS / PLEURA: Increased interstitial markings No pneumothorax. ADDITIONAL FINDINGS: No significant additional findings. IMPRESSION: Increased interstitial markings which may represent pulmonary vascular congestion. Signer Name: Benton Brower MD FACR Signed: 09/15/2018 10:45 PM Workstation Name: [id number]
[2018-09-15 22:58] LABS: Basophils % (Auto) 0.3 % (0.0-1.8); Lymphocytes # (Auto) 1.1 K/mm3 (1.2-5.4); Lymphocytes % (Auto) 12.4 % (13.4-35.0); Mean Corpuscular HGB Conc 30 % (30-34); Mean Corpuscular Volume 79 fl (79-97); Monocytes # (Auto) 1.1 K/mm3 (0.0-0.8); Monocytes % (Auto) 11.8 % (0.0-7.3); Platelet Count 183 K/mm3 (140-440); Red Blood Count 4.97 M/mm3 (3.65-5.03); Red Cell Distribution Width 19.7 % (13.2-15.2)
[2018-09-15 23:05] LABS: BUN/Creatinine Ratio 43; Blood Urea Nitrogen 17 mg/dL (7-17); Calcium 9.3 mg/dL (8.4-10.2); Hemolysis Index 19
[2018-09-15] MEDS ORDERED: ATIVAN IV ONE (23:10)
[2018-09-15 23:20] LABS: Hematocrit 39.1 % (30.3-42.9); Hemoglobin 11.6 gm/dl (10.1-14.3)
[2018-09-16] MEDS ORDERED: TYLENOL PO PRN (01:38)
[2018-09-16] MEDS ORDERED: ZOFRAN IV PRN (01:43)
--- NOTE | 2018-09-16 04:26 | History and Physical Report ---
CHIEF COMPLAINT: Shortness of breath. HISTORY OF PRESENTING ILLNESS: The patient is a 58-year-old female who was brought to the Emergency Room because of shortness of breath that started last night. The patient was noted to have oxygen saturation running in the 60s while on 3 L of oxygen. EMS was called and the patient was given albuterol nebulizer and Solu-Medrol and transported to the Emergency Room. The patient's oxygen saturation was noted to improve with nebulizer treatment, and there was history of lethargy, but no history of chest pain, fever or chills; however, the patient has a unproductive cough. There is no history of nausea or vomiting. PAST MEDICAL HISTORY: Pertinent for hypertension, coronary artery disease, status post myocardial infarction, gastroesophageal reflux disease, liver disease, depression and anxiety, COPD. PAST SURGICAL HISTORY: Pertinent for coronary stent placement, appendectomy, back surgery and cardiac stent placement. FAMILY HISTORY: Reviewed and noncontributory. SOCIAL HISTORY: The patient does not currently smoke cigarette, used to smoke before. Does not drink alcohol and does not use illicit drug. MEDICATIONS: The patient is on venlafaxine 100 mg by mouth t.i.d., albuterol nebulizer 2.5 mg by inhalation every 4 hours, alprazolam 0.25 mg by mouth every 8 hours, Tylenol 650 mg by mouth every 6 hours as needed for fever and headache, baclofen 10 mg by mouth twice daily, BuSpar 5 mg by mouth twice daily, Brovana nebulizer 15 mcg inhalation every 12 hours, budesonide or Pulmicort 0.5 mg inhalation every 12 hours, [place] 5/325 mg 1 by mouth every 4 hours as needed for pain, Duo-nebulizer 1 ampule by inhalation twice daily, Protonix 40 mg daily, Zithromax 250 mg by mouth daily and prednisone 5 mg by mouth tapered dose. ALLERGIES: THE PATIENT IS ALLERGIC TO HYDROMORPHONE AND PHENOBARBITAL. REVIEW OF SYSTEMS: CONSTITUTIONAL: There is no fever, no chills, no diaphoresis. HEENT: There is no headache or sore throat. CARDIOVASCULAR SYSTEM: There is no chest pain or orthopnea. RESPIRATORY SYSTEM: Shortness of breath is present. Cough is present. GASTROINTESTINAL SYSTEM: There is no nausea, no vomiting, no abdominal pain, diarrhea or constipation. NEUROLOGICAL SYSTEM: There is no numbness, no dizziness, altered mental status present. MUSCULOSKELETAL SYSTEM: There is no joint pain or swelling. DERMATOLOGICAL SYSTEM: There is no skin rash or itching. GENITOURINARY SYSTEM: There is no dysuria, hematuria, or flank pain. Rest of system review is normal. PHYSICAL EXAMINATION: GENERAL: At the time of exam, the patient was found to be lethargic, arousable, but not in acute distress. VITAL SIGNS: Shows temperature of 99 degrees Fahrenheit, pulse of 89, respirations 29, blood pressure 198/91, O2 sat of 91% on oxygen. HEENT: Shows pupils to be equal, round, reactive to light and accommodation. The patient is on BiPAP mask. NECK: Supple with no JVD or carotid bruit. CARDIOVASCULAR SYSTEM: Showed normal first and second heart sounds, with no gallops or murmurs. RESPIRATORY SYSTEM: Showed reduced air entry on both sides of the lungs with expiratory wheezing. GASTROINTESTINAL SYSTEM: Showed abdomen to be full, soft, nontender with no organomegaly or rigidity. NEUROLOGIC: Shows the patient to be lethargic, but arousable with no focal deficit elicited. MUSCULOSKELETAL SYSTEM: Showed no joint swelling or tenderness. DERMATOLOGICAL SYSTEM: Showed no skin rash. GENITOURINARY SYSTEM: Showing no costovertebral angle tenderness. PERTINENT LABORATORY DATA AND IMAGING STUDIES: The patient had chest x-ray done that shows increased interstitial markings which may represent pulmonary vascular congestion, according to the radiologist. The patient's lab result shows CBC with normal white count, normal hemoglobin and normal hematocrit with CBC differential showing elevated monocyte count of 11.8% and elevated segmented neutrophil count of 75.5%. The patient's ABG shows low pH of 7.32 with elevated pCO2 of 63.7 with low pO2 of 62 and this was done on FiO2 of 32. The patient's chemistry shows slightly elevated sodium level of 146 with high CO2 of 32 with elevated brain natriuretic peptide level of 2001. The patient's troponin level came back normal. DIAGNOSES: 1. Chronic obstructive pulmonary disease exacerbation. 2. Pulmonary congestion on x-ray. PLAN OF CARE: 1. The patient will be admitted to [facility]. We will continue BiPAP treatment started in the Emergency Room. 2. The patient will have 2D echo done in the morning because of dyspnea and with elevated brain natriuretic peptide. 3. The patient will be on sequential compressive device for DVT prophylaxis because of history of bleeding ulcers. 4. The patient will have serial cardiac enzymes involving troponin, total CK, and CK-MB checked q.6 hours x 2 more levels. 5. The patient will be on Tylenol 650 mg by mouth every 4 hours for fever and headache and will be on IV Solu-Medrol 60 mg every 8 hours. 6. The patient will be on IV Levaquin 750 mg daily and will be on IV Zofran 4 mg every 8 hours for nausea and vomiting. 7. The patient will be on Duo-nebulizer q.i.d. 8. The patient will be on Tylenol 650 mg by mouth every 4 hours for fever and headache. 9. The patient's diet will be low-sodium diet. JOB# [id number] OCN/NTS
[2018-09-16] MEDS ORDERED: SOLU-Medrol ONE ×3 (05:51→22:21)
[2018-09-16] MEDS: SOLU-Medrol IV SCH ×3 (05:53→22:21)
[2018-09-16 06:21] LABS: Creatine Kinase MB 3.8 ng/mL (0.0-4.0)
[2018-09-16] MEDS: DUONEB *Not for PRN Use IH SCH ×4 (07:39→23:00)
[2018-09-16] MEDS ORDERED: DUONEB *Not for PRN Use IH ONE ×2 (07:40→14:53)
[2018-09-16] MEDS ORDERED: LEVAQUIN 750MG/150ML 750 MG/150 ML BAG IV ONE (10:41)
[2018-09-16] MEDS: LEVAQUIN 750MG/150ML 750 MG/150 ML BAG IV SCH (10:45)
--- NOTE | 2018-09-16 11:34 | Event Note ---
Date: 09/16/18 Patient with shortness of breath, acute resp failure due to COPD exacerbation. On BIPAP. Pulmonology consulted. I have seen and examined her. Will repeat ABG.
--- NOTE | 2018-09-16 11:48 | Consultation ---
<HERMILA THOMPSON - Last Filed: 09/16/18 11:58> History of Present Illness Consult date: 09/16/18 Consult reason: congestive heart failure, shortness of breath History of present illness: This is a 58-year old woman with chronic lung diseae on home oxygen. She also has coronary artery disease. In April 2016, she was suffered an acute inferior wall myocardial infarction. A distal right coronary occlusion failed attempted angioplasty, but she subsequently had a bare metal stent deployed to a secondary stenosis of the mid left anterior descending artery. Plavix was later discontinued due to melena and anemia. In addition, patient has a history of paroxysmal atrial fibrillation managed with metoprolol for suppression. Her latest echocardiogram reports a normal LV ejection fraction 55-60%.There has been an attempted thallium stress test within the past 6 months but this was aborted due to the patient's inability to lay flat from her severe COPD. The patient is admitted to the hospital with shortness of breath and hypoxic respiratory failure. O2 desaturation in the 60s on presentation. Currently on Bipap therapy. Chest x-ray reports interstitial edema. ECG is normal sinus rhythm. A cardiac consultation has been requested for CHF evaluation. Medications and Allergies Allergies Allergy/AdvReac Type Severity Reaction Status Date / Time hydromorphone [From Dilaudid] Allergy Unknown Verified 03/01/18 21:50 phenobarbital Allergy Unknown Verified 10/28/14 09:33 Home Medications Medication Instructions Recorded Confirmed Last Taken Type ALPRAZolam [Xanax TAB] 0.25 mg PO Q8H PRN #15 tablet 06/19/18 09/16/18 Unknown Rx Baclofen [Lioresal] 10 mg PO BID #60 tab 06/19/18 09/16/18 Unknown Rx busPIRone [Buspar] 5 mg PO BID #60 tab 06/19/18 09/16/18 Unknown Rx Pantoprazole [Protonix TAB] 40 mg PO QDAY #30 tab 08/19/18 09/16/18 Unknown Rx Amlodipine Besylate [Norvasc] 5 mg PO DAILY 09/16/18 09/16/18 Unknown History Budesonide [Pulmicort Respules] 0.5 mg IH Q12H 09/16/18 09/16/18 Unknown History HYDROcodone/APAP 5-325 [[place] 1 each PO BID PRN 09/16/18 09/16/18 Unknown History 5-325 mg TAB] Ipratropium/Albuterol Sulfate 1 ampul IH BID 09/16/18 09/16/18 Unknown History [DUONEB *Not for PRN Use*] Metoprolol Xl [Metoprolol 100 mg PO QDAY 09/16/18 09/16/18 Unknown History SUCCINATE ER TAB] Nitroglycerin [Nitrostat] 0.4 mg SL Q5M PRN 09/16/18 09/16/18 Unknown History Active Meds: Active Medications Acetaminophen (Tylenol) 650 mg PO Q4H PRN PRN Reason: Fever >101 Albuterol/Ipratropium (Duoneb *Not For Prn Use*) 1 ampul IH QIDRT [facility] Last Admin: 09/16/18 07:39 Dose: 1 ampul Documented by: Furosemide (Lasix) 40 mg IV ONCE ONE Stop: 09/16/18 12:01 Levofloxacin/Dextrose (Levaquin 750mg/150ml) 750 mg in 150 mls @ 100 mls/hr IV Q24HR [facility]; Protocol Stop: 09/20/18 11:29 Methylprednisolone Sodium Succinate (Solu-Medrol) 60 mg IV Q8HR [facility] Last Admin: 09/16/18 05:53 Dose: 60 mg Documented by: Ondansetron HCl (Zofran) 4 mg IV Q8H PRN PRN Reason: Nausea And Vomiting Physical Examination Vital Signs Pulse Resp Pulse Ox 79 12 100 09/15/18 21:58 09/15/18 21:58 09/15/18 21:58 General appearance: mild distress, other (on Bipap) Cardiac: Positive: Reg Rate and Rhythm Neuro: Positive: Grossly Intact Extremities: Absent: edema Results 09/15/18 22:04 09/15/18 22:04 Cardiac Enzymes 09/16/18 Range/Units 05:13 CK-MB (CK-2) 3.8 (0.0-4.0) ng/mL CBC 09/15/18 Range/Units 22:04 WBC 9.2 (4.5-11.0) K/mm3 RBC 4.97 (3.65-5.03) M/mm3 Hgb 11.6 (10.1-14.3) gm/dl Hct 39.1 (30.3-42.9) % Plt Count 183 (140-440) K/mm3 Lymph # 1.1 L (1.2-5.4) K/mm3 [place] # 1.1 H (0.0-0.8) K/mm3 Eos # 0.0 (0.0-0.4) K/mm3 Baso # 0.0 (0.0-0.1) K/mm3 Comprehensive Metabolic Panel 09/15/18 Range/Units 22:04 Sodium 146 H (137-145) mmol/L Potassium 4.3 (3.6-5.0) mmol/L Chloride 102.3 (98-107) mmol/L Carbon Dioxide 32 H (22-30) mmol/L BUN 17 (7-17) mg/dL Creatinine 0.4 L (0.7-1.2) mg/dL Glucose 106 H (65-100) mg/dL Calcium 9.3 (8.4-10.2) mg/dL Assessment and Plan COPD exacerbation Hypoxic respiratory failure Chest pain, atypical an attempted thallium stress test within the past 6 months but this was aborted due to the patient's inability to lay flat from her severe COPD. Coronary artery disease EF 50-55% by echocardiogram 08/2016 Hx of COPD on home oxygen Paroxysmal afib/multifocal atrial tachycardia currently in sinus rhythm not on anticoagulation secondary to melena and anemia. Chronic pain Recommendations: Pulmonary and internal medicine for management of COPD, hypoxemia and chronic shortness of breath. An echocardiogram will be done for reassessment of left ventricular systolic function. Medical therapy for coronary artery disease and paroxysmal atrial fibrillation. <MATTEO ELLINGTON - Last Filed: 09/16/18 12:06> Medications and Allergies Active Meds: Active Medications Acetaminophen (Tylenol) 650 mg PO Q4H PRN PRN Reason: Fever >101 Albuterol/Ipratropium (Duoneb *Not For Prn Use*) 1 ampul IH QIDRT [facility] Last Admin: 09/16/18 11:47 Dose: 1 ampul Documented by: Levofloxacin/Dextrose (Levaquin 750mg/150ml) 750 mg in 150 mls @ 100 mls/hr IV Q24HR [facility]; Protocol Stop: 09/20/18 11:29 Methylprednisolone Sodium Succinate (Solu-Medrol) 60 mg IV Q8HR [facility] Last Admin: 09/16/18 05:53 Dose: 60 mg Documented by: Ondansetron HCl (Zofran) 4 mg IV Q8H PRN PRN Reason: Nausea And Vomiting Physical Examination Vital Signs Pulse Resp Pulse Ox 79 12 100 09/15/18 21:58 09/15/18 21:58 09/15/18 21:58 Results 09/15/18 22:04 09/15/18 22:04 Cardiac Enzymes 09/16/18 Range/Units 05:13 CK-MB (CK-2) 3.8 (0.0-4.0) ng/mL CBC 09/15/18 Range/Units 22:04 WBC 9.2 (4.5-11.0) K/mm3 RBC 4.97 (3.65-5.03) M/mm3 Hgb 11.6 (10.1-14.3) gm/dl Hct 39.1 (30.3-42.9) % Plt Count 183 (140-440) K/mm3 Lymph # 1.1 L (1.2-5.4) K/mm3 [place] # 1.1 H (0.0-0.8) K/mm3 Eos # 0.0 (0.0-0.4) K/mm3 Baso # 0.0 (0.0-0.1) K/mm3 Comprehensive Metabolic Panel 09/15/18 Range/Units 22:04 Sodium 146 H (137-145) mmol/L Potassium 4.3 (3.6-5.0) mmol/L Chloride 102.3 (98-107) mmol/L Carbon Dioxide 32 H (22-30) mmol/L BUN 17 (7-17) mg/dL Creatinine 0.4 L (0.7-1.2) mg/dL Glucose 106 H (65-100) mg/dL Calcium 9.3 (8.4-10.2) mg/dL Assessment and Plan Seen and evaluated the patient agrees with this as planned. Patient is presen ting with atypical chest pain. Patient was planned for a thallium stress test within the past 6 months but it was aborted as patient was not able to lie flat. Patient does have history of coronary artery disease for which she is well treated with medical therapy. Will recheck echocardiogram for evaluation of diastolic functionsystolic function is normal. Patient does have a history of atrial fibrillation but is currently in sinus rhythm. Continue maximal medical therapy for treatment of coronary artery disease and atrial fibrillation.
[2018-09-16] MEDS ORDERED: LASIX IV ONE (12:00)
[2018-09-16] MEDS ORDERED: TYLENOL ONE (12:33)
[2018-09-16] MEDS ORDERED: LASIX ONE (13:05)
[2018-09-16] MEDS ORDERED: VASELINE LIP THERAPY TP ONE (13:10)
[2018-09-16 13:24] LABS: Creatine Kinase MB 2.9 ng/mL (0.0-4.0)
[2018-09-16] MEDS ORDERED: MORPHINE IV ONE ×2 (16:00)
[2018-09-16] MEDS ORDERED: MORPHINE ONE (16:18)
--- NOTE | 2018-09-16 18:15 | Consultation ---
History of Present Illness Consult date: 09/16/18 Reason for consult: dyspnea, cough, COPD, hypoxemia History of present illness: PULMONARY AND CRITICAL CARE CONSULTATION DR. GARCIA THANK YOU FOR ASKING US TO PARTICIPATE IN THE CARE OF THIS PATIENT. 58-year-old female who issues COPD presents to ED with shortness of breath started tonight. Patient lives with her sister who reports patient had O2 sats in the 60s on her 3 L of O2. EMS confirms O2 sats in the 60s. They gave albuterol meds and Solu-Medrol and transported patient to the ER. Report O2 sats improved with nebulizer treatment. The patient is currently lethargic, answers some questions. Sister believes this is due to her hypoxia. Patient denies fever or chest pain. Reports cough. Patient has history of hypertension. Patient may have GE reflux.Patient taking protonix. Patient has heavy history of smoking. 1 pack x 45 years. Says stopped smoking last june. Denies alcohol or drug abuse. 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 Patient and has 1 child. Patient allergic to Phenobarbital and Hyromorphine. Patient alert, awake at this time. Patients O2 saturation 94% on 3 litres O2. ABG POC ABG pH 7.318 (7.35-7.45) L 09/16/18 12:01 POC ABG pCO2 69.0 (35-45) H 09/16/18 12:01 POC ABG pO2 88 (80-105) 09/16/18 12:01 POC ABG HCO3 35.4 (22-26 mml/L) 09/16/18 12:01 POC ABG Total CO2 37 (23-27mmol/L) 09/16/18 12:01 POC ABG O2 Sat 95 09/16/18 12:[address] on BIPAP 16/6, rate 16, FIO2 32% Medications and Allergies Allergies Allergy/AdvReac Type Severity Reaction Status Date / Time hydromorphone [From Dilaudid] Allergy Unknown Verified 03/01/18 21:50 phenobarbital Allergy Unknown Verified 10/28/14 09:33 Home Medications Medication Instructions Recorded Confirmed Last Taken Type ALPRAZolam [Xanax TAB] 0.25 mg PO Q8H PRN #15 tablet 06/19/18 09/16/18 Unknown Rx Baclofen [Lioresal] 10 mg PO BID #60 tab 06/19/18 09/16/18 Unknown Rx busPIRone [Buspar] 5 mg PO BID #60 tab 06/19/18 09/16/18 Unknown Rx Pantoprazole [Protonix TAB] 40 mg PO QDAY #30 tab 08/19/18 09/16/18 Unknown Rx Amlodipine Besylate [Norvasc] 5 mg PO DAILY 09/16/18 09/16/18 Unknown History Budesonide [Pulmicort Respules] 0.5 mg IH Q12H 09/16/18 09/16/18 Unknown History HYDROcodone/APAP 5-325 [[place] 1 each PO BID PRN 09/16/18 09/16/18 Unknown History 5-325 mg TAB] Ipratropium/Albuterol Sulfate 1 ampul IH BID 09/16/18 09/16/18 Unknown History [DUONEB *Not for PRN Use*] Metoprolol Xl [Metoprolol 100 mg PO QDAY 09/16/18 09/16/18 Unknown History SUCCINATE ER TAB] Nitroglycerin [Nitrostat] 0.4 mg SL Q5M PRN 09/16/18 09/16/18 Unknown History Venlafaxine HCl [Venlafaxine] 100 mg PO TID 09/16/18 09/16/18 Unknown History Active Meds: Active Medications Acetaminophen (Tylenol) 650 mg PO Q4H PRN PRN Reason: Fever >101 Albuterol/Ipratropium (Duoneb *Not For Prn Use*) 1 ampul IH QIDRT [facility] Last Admin: 09/16/18 16:03 Dose: 1 ampul Documented by: Levofloxacin/Dextrose (Levaquin 750mg/150ml) 750 mg in 150 mls @ 100 mls/hr IV Q24HR [facility]; Protocol Stop: 09/20/18 11:29 Last Admin: 09/16/18 10:45 Dose: 100 mls/hr Documented by: Methylprednisolone Sodium Succinate (Solu-Medrol) 60 mg IV Q8HR [facility] Last Admin: 09/16/18 15:42 Dose: 60 mg Documented by: Ondansetron HCl (Zofran) 4 mg IV Q8H PRN PRN Reason: Nausea And Vomiting Review of Systems All systems: negative Physical Examination Vital signs: Vital Signs Pulse Resp Pulse Ox 79 12 100 09/15/18 21:58 09/15/18 21:58 09/15/18 21:58 Results - Laboratory Findings CBC and BMP: 09/15/18 22:04 09/15/18 22:04 ABG POC ABG pH 7.318 (7.35-7.45) L 09/16/18 12:01 POC ABG pCO2 69.0 (35-45) H 09/16/18 12:01 POC ABG pO2 88 (80-105) 09/16/18 12:01 POC ABG HCO3 35.4 (22-26 mml/L) 09/16/18 12:01 POC ABG Total CO2 37 (23-27mmol/L) 09/16/18 12:01 POC ABG O2 Sat 95 09/16/18 12:01 ABG Abnormal lab findings: Abnormal Labs 09/15/18 09/15/18 09/15/18 22:04 22:04 22:04 MCH 23 L RDW 19.7 H Lymph % (Auto) 12.4 L [place] % (Auto) 11.8 H Lymph # 1.1 L [place] # 1.1 H Seg Neutrophils % 75.5 H POC ABG pH POC ABG pCO2 POC ABG pO2 Sodium 146 H Carbon Dioxide 32 H Creatinine 0.4 L Glucose 106 H CK-MB (CK-2) Rel Index NT-Pro-B Natriuret Pep 2000 H 09/15/18 09/16/18 09/16/18 23:01 05:13 11:57 MCH RDW Lymph % (Auto) [place] % (Auto) Lymph # [place] # Seg Neutrophils % POC ABG pH 7.321 L POC ABG pCO2 63.7 H POC ABG pO2 62 L Sodium Carbon Dioxide Creatinine Glucose CK-MB (CK-2) Rel Index 9.2 H 6.9 H NT-Pro-B Natriuret Pep 09/16/18 12:01 MCH RDW Lymph % (Auto) [place] % (Auto) Lymph # [place] # Seg Neutrophils % POC ABG pH 7.318 L POC ABG pCO2 69.0 H POC ABG pO2 Sodium Carbon Dioxide Creatinine Glucose CK-MB (CK-2) Rel Index NT-Pro-B Natriuret Pep - Diagnostic Findings Chest x-ray: report reviewed (iNCREASED INTERSTITIAL MARKINGS WHICH MAY REPRESENT PULMONARY VASCULAR CONGESTION.), image reviewed Assessment and Plan 58-year-old female who issues COPD presents to ED with shortness of breath started tonight. Patient lives with her sister who reports patient had O2 sats in the 60s on her 3 L of O2. EMS confirms O2 sats in the 60s. They gave albuterol meds and Solu-Medrol and transported patient to the ER. Report O2 sats improved with nebulizer treatment. The patient is currently lethargic, answers some questions. Sister believes this is due to her hypoxia. Patient denies fever or chest pain. Reports cough. Patient has history of hypertension. Patient may have GE reflux.Patient taking protonix. Patient has heavy history of smoking. 1 pack x 45 years. Says stopped smoking last june. Denies alcohol or drug abuse. Patient did multiple jobs. Last job worked with [employer]. Patient and has 1 child. Patient allergic to Phenobarbital and Hyromorphine. Patient alert, awake at this time. Patients O2 saturation 94% on 3 litres O2. ABG POC ABG pH 7.318 (7.35-7.45) L 09/16/18 12:01 POC ABG pCO2 69.0 (35-45) H 09/16/18 12:01 POC ABG pO2 88 (80-105) 09/16/18 12:01 POC ABG HCO3 35.4 (22-26 mml/L) 09/16/18 12:01 POC ABG Total CO2 37 (23-27mmol/L) 09/16/18 12:01 POC ABG O2 Sat 95 09/16/18 12:[address] on BIPAP 16/6, rate 16, FIO2 32% - Patient Problems (1) Acute on chronic respiratory failure with hypoxia and hypercapnia Current Visit: Yes Status: Chronic Plan to address problem: O2 3 litres via nasal canula. BIPAP Albuterol/atrovent aerosol treatments q 6 hours. Continue I/V solumedrol. Continue Levaquin. Recommend DVT Prophylaxis SCDs Recommend GI prophylaxis. (2) COPD exacerbation Current Visit: Yes Status: Chronic Plan to address problem: O2 3 litres via nasal canula. BIPAP Albuterol/atrovent aerosol treatments q 6 hours. Continue I/V solumedrol. Continue Levaquin. Recommend DVT Prophylaxis SCDs Recommend GI prophylaxis (3) Acute chest pain Current Visit: No Status: Acute Plan to address problem: Management as per cardiology. (4) CHF exacerbation Current Visit: No Status: Acute Plan to address problem: Management as per cardiology. (5) Tobacco abuse Current Visit: No Status: Chronic Plan to address problem: Counselled to stop smoking. Patient said she stopped smoking last june.
[2018-09-16] MEDS ORDERED: IBUPROFEN PO ONE (22:22)
[2018-09-16] MEDS: PULMICORT IH SCH (23:00)
[2018-09-16] MEDS ORDERED: NITROSTAT SL PRN (23:03)
[2018-09-17] MEDS: NORCO 5/325 PO PRN ×3 (00:03→23:47)
[2018-09-17 05:17] LABS: BUN/Creatinine Ratio 32; Blood Urea Nitrogen 19 mg/dL (7-17); Calcium 9.2 mg/dL (8.4-10.2); Hemolysis Index 27
[2018-09-17 05:39] LABS: Mean Corpuscular HGB Conc 30 % (30-34); Mean Corpuscular Volume 77 fl (79-97); Platelet Count 202 K/mm3 (140-440); Red Blood Count 4.86 M/mm3 (3.65-5.03); Red Cell Distribution Width 19.9 % (13.2-15.2)
[2018-09-17 05:46] LABS: Hematocrit 37.3 % (30.3-42.9); Hemoglobin 11.1 gm/dl (10.1-14.3)
[2018-09-17] MEDS: SOLU-Medrol IV SCH ×3 (05:54→22:04)
[2018-09-17] MEDS ORDERED: VENLAFAXINE HCL 100 MG PO SCH (08:00)
[2018-09-17] MEDS: DUONEB *Not for PRN Use IH SCH ×4 (08:42→19:39)
[2018-09-17] MEDS: PULMICORT IH SCH ×4 (08:43→23:15)
[2018-09-17] MEDS: EFFEXOR PO SCH ×6 (08:59→19:10)
[2018-09-17] MEDS: LEVAQUIN 750MG/150ML 750 MG/150 ML BAG IV SCH (09:04)
[2018-09-17] MEDS ORDERED: PROTONIX PO SCH (10:00)
[2018-09-17] MEDS ORDERED: NORVASC PO SCH (10:00)
[2018-09-17] MEDS ORDERED: TOPROL XL PO SCH (10:00)
[2018-09-17] MEDS ORDERED: BUSPAR PO SCH (10:00)
[2018-09-17] MEDS ORDERED: LIORESAL PO SCH (10:00)
--- NOTE | 2018-09-17 10:22 | Progress Note ---
Assessment and Plan Acute on chronic hypoxic-hypercapnic respiratory failure AE-COPD Atypical chest pain GERD h/o Coronary artery disease Paroxysmal atrial fibrillation Anxiety and Depression Chronic pain, narcotic dependant h/o Tobacco use disorder, quit June 2017 -Continue with BIPAP qhs and prn -Supplemental oxygen to keep O2 sats 88-90% -Oxygen restrictive strategies -Steroids with slow taper -VTE prophylaxis -Not on therapeutic anticoagulation because of melanotic stools -Therapeutic PPI -Bronchodilators -Pain management, analgesia -Mobility as tolerated , for pressure ulcer prevention -Accucheck with glycemic control while on steroids -Complete antibiotics per primary service, stop after 5 days of therapy. -Cardioprotective measures -Smoking cessation counselling- encouraged to remain quit and avoid pulmonary toxins Patient has been admitted twice in the last 2 weeks. Will recommend optimization of care prior to discharge planning. Will need home health/support service on discharge CONDITION: CRITICAL PROGNOSIS: GUARDED CODE STATUS : FULL CODE The high probability of a clinically significant, sudden or life-threatening deterioration of the [respiratory and cardiovascular] system(s) required my full and direct attention, intervention and personal management. The aggregate critical care time was [30] minutes without overlap. Time includes spent on; [x] Data Review and interpretation [x] Patient assessment and monitoring of vital signs [x] Documentation [x] Medication orders and management Subjective Date of service: 09/17/18 Interval history: Patient is seen today for: acute on chronic hypoxemic-hypercapnic resp faiure; AE-COPD; GERD; Atypical chest pain Seen and examined at bedside; 24hour events reviewed; nursing and respiratory care staff consulted; no adverse overnight events reported to me; vitals, labs, medications, imaging reviewed. Was on BIPAP overnight , currently on oxygen via NC at 3L/min, denies any fevers or chills, no nausea or vomiting. Chest pain is improving but has ongoing back pain. Has shortness of breath and cough which are both improving slowly Objective - Exam Narrative Exam: Gen: Chronically ill looking woman, kyphotic, sitting up in bed in mild respiratory distress with supplemental oxygen, sitting up in bed, HEENT: Normocephalic, atraumatic Neck: supple, no JVD Back-Khyphoscoliosis with multiple surgical scars Heart: RRR, S1 and S2, no murmurs, rubs or gallop Lungs: Diminished BS bilaterally, posteriorly.Bilateral rhonchi, wheeze Abd: soft, non tender, non distended, normal BS, Ext: No edema, no clubbing, no cyanosis Neuro: Awake,alert, Oriented X 3. No focal neurologic signs Psych: Flat affect, anxious Vital Signs - 12hr 09/16/18 09/16/18 09/16/18 23:00 23:08 23:10 Temperature Pulse Rate 119 H 110 H Pulse Rate [ Anterior Bilateral Upper Lobe] Pulse Rate [ From Monitor] Respiratory 18 18 23 Rate Respiratory Rate [Anterior Bilateral Upper Lobe] Blood Pressure 104/57 104/57 O2 Sat by Pulse 86 Oximetry 09/17/18 09/17/18 09/17/18 00:00 00:03 00:06 Temperature 99.5 F 99.5 F Pulse Rate Pulse Rate [ Anterior Bilateral Upper Lobe] Pulse Rate [ From Monitor] Respiratory 15 Rate Respiratory Rate [Anterior Bilateral Upper Lobe] Blood Pressure O2 Sat by Pulse Oximetry 09/17/18 09/17/18 09/17/18 00:12 00:21 00:31 Temperature Pulse Rate 101 H 104 H 97 H Pulse Rate [ Anterior Bilateral Upper Lobe] Pulse Rate [ From Monitor] Respiratory 15 19 15 Rate Respiratory Rate [Anterior Bilateral Upper Lobe] Blood Pressure 110/50 110/50 O2 Sat by Pulse 94 94 95 Oximetry 09/17/18 09/17/18 09/17/18 00:41 00:51 01:00 Temperature Pulse Rate 102 H 99 H 107 H Pulse Rate [ Anterior Bilateral Upper Lobe] Pulse Rate [ From Monitor] Respiratory 17 16 13 Rate Respiratory Rate [Anterior Bilateral Upper Lobe] Blood Pressure 110/50 110/50 109/48 O2 Sat by Pulse 94 93 94 Oximetry 09/17/18 09/17/18 09/17/18 01:11 01:21 01:31 Temperature Pulse Rate 105 H 107 H 108 H Pulse Rate [ Anterior Bilateral Upper Lobe] Pulse Rate [ From Monitor] Respiratory 20 22 17 Rate Respiratory Rate [Anterior Bilateral Upper Lobe] Blood Pressure 109/48 109/48 109/48 O2 Sat by Pulse 94 93 92 Oximetry 09/17/18 09/17/18 09/17/18 01:41 01:51 02:00 Temperature Pulse Rate 116 H 107 H 114 H Pulse Rate [ Anterior Bilateral Upper Lobe] Pulse Rate [ From Monitor] Respiratory 15 21 16 Rate Respiratory Rate [Anterior Bilateral Upper Lobe] Blood Pressure 109/48 109/48 97/46 O2 Sat by Pulse 93 94 93 Oximetry 09/17/18 09/17/18 09/17/18 02:11 02:21 02:31 Temperature Pulse Rate 105 H 102 H 101 H Pulse Rate [ Anterior Bilateral Upper Lobe] Pulse Rate [ From Monitor] Respiratory 17 17 14 Rate Respiratory Rate [Anterior Bilateral Upper Lobe] Blood Pressure 97/46 97/46 97/46 O2 Sat by Pulse 94 94 94 Oximetry 09/17/18 09/17/18 09/17/18 02:41 02:51 03:00 Temperature Pulse Rate 99 H 94 H 102 H Pulse Rate [ Anterior Bilateral Upper Lobe] Pulse Rate [ From Monitor] Respiratory 17 20 16 Rate Respiratory Rate [Anterior Bilateral Upper Lobe] Blood Pressure 97/46 97/46 102/42 O2 Sat by Pulse 95 95 96 Oximetry 09/17/18 09/17/18 09/17/18 03:11 03:21 03:31 Temperature Pulse Rate 93 H 91 H 98 H Pulse Rate [ Anterior Bilateral Upper Lobe] Pulse Rate [ From Monitor] Respiratory 20 15 17 Rate Respiratory Rate [Anterior Bilateral Upper Lobe] Blood Pressure 102/42 102/42 102/42 O2 Sat by Pulse 94 94 94 Oximetry 09/17/18 09/17/18 09/17/18 03:41 03:51 04:00 Temperature 98.7 F Pulse Rate 99 H 92 H 91 H Pulse Rate [ Anterior Bilateral Upper Lobe] Pulse Rate [ 93 H From Monitor] Respiratory 22 25 H 24 Rate Respiratory Rate [Anterior Bilateral Upper Lobe] Blood Pressure 102/42 102/42 95/43 O2 Sat by Pulse 90 95 94 Oximetry 09/17/18 09/17/18 09/17/18 04:10 04:21 04:31 Temperature Pulse Rate 89 94 H 91 H Pulse Rate [ Anterior Bilateral Upper Lobe] Pulse Rate [ From Monitor] Respiratory 17 19 11 L Rate Respiratory Rate [Anterior Bilateral Upper Lobe] Blood Pressure 102/42 95/43 95/43 O2 Sat by Pulse 92 93 94 Oximetry 09/17/18 09/17/18 09/17/18 04:41 04:51 05:00 Temperature Pulse Rate 92 H 84 84 Pulse Rate [ Anterior Bilateral Upper Lobe] Pulse Rate [ From Monitor] Respiratory 18 19 17 Rate Respiratory Rate [Anterior Bilateral Upper Lobe] Blood Pressure 95/43 95/43 113/48 O2 Sat by Pulse 93 95 94 Oximetry 0809/17/18 09/17/18 05:11 05:21 05:31 Temperature Pulse Rate 93 H 100 H 97 H Pulse Rate [ Anterior Bilateral Upper Lobe] Pulse Rate [ From Monitor] Respiratory 18 18 18 Rate Respiratory Rate [Anterior Bilateral Upper Lobe] Blood Pressure 113/48 113/48 113/48 O2 Sat by Pulse 93 95 91 Oximetry 09/17/18 09/17/18 09/17/18 05:41 05:51 06:00 Temperature 96.9 F L Pulse Rate 89 92 H 90 Pulse Rate [ Anterior Bilateral Upper Lobe] Pulse Rate [ From Monitor] Respiratory 20 16 18 Rate Respiratory Rate [Anterior Bilateral Upper Lobe] Blood Pressure 113/48 113/48 121/42 O2 Sat by Pulse 95 95 93 Oximetry 09/17/18 09/17/18 09/17/18 06:11 06:21 06:31 Temperature Pulse Rate 99 H 91 H 90 Pulse Rate [ Anterior Bilateral Upper Lobe] Pulse Rate [ From Monitor] Respiratory 17 11 L 16 Rate Respiratory Rate [Anterior Bilateral Upper Lobe] Blood Pressure 121/42 121/42 121/42 O2 Sat by Pulse 96 96 95 Oximetry 09/17/18 09/17/18 09/17/18 06:41 06:51 07:01 Temperature Pulse Rate 89 92 H 89 Pulse Rate [ Anterior Bilateral Upper Lobe] Pulse Rate [ From Monitor] Respiratory 20 19 14 Rate Respiratory Rate [Anterior Bilateral Upper Lobe] Blood Pressure 121/42 121/42 129/50 O2 Sat by Pulse 96 95 95 Oximetry 09/17/18 09/17/18 09/17/18 07:11 07:21 07:31 Temperature Pulse Rate 84 86 93 H Pulse Rate [ Anterior Bilateral Upper Lobe] Pulse Rate [ From Monitor] Respiratory 17 16 13 Rate Respiratory Rate [Anterior Bilateral Upper Lobe] Blood Pressure 129/50 129/50 129/50 O2 Sat by Pulse 94 96 95 Oximetry 09/17/18 09/17/18 09/17/18 08:00 08:21 09:03 Temperature 97.8 F Pulse Rate 88 Pulse Rate [ 91 H Anterior Bilateral Upper Lobe] Pulse Rate [ From Monitor] Respiratory Rate Respiratory 18 Rate [Anterior Bilateral Upper Lobe] Blood Pressure 124/68 O2 Sat by Pulse Oximetry 09/17/18 09:04 Temperature Pulse Rate 88 Pulse Rate [ Anterior Bilateral Upper Lobe] Pulse Rate [ From Monitor] Respiratory Rate Respiratory Rate [Anterior Bilateral Upper Lobe] Blood Pressure 124/68 O2 Sat by Pulse Oximetry CBC and BMP: 09/17/18 04:27 09/17/18 04:27 ABG, PT/INR, D-dimer: ABG POC ABG pH 7.318 (7.35-7.45) L 09/16/18 12:01 POC ABG pCO2 69.0 (35-45) H 09/16/18 12:01 POC ABG pO2 88 (80-105) 09/16/18 12:01 POC ABG HCO3 35.4 (22-26 mml/L) 09/16/18 12:01 POC ABG Total CO2 37 (23-27mmol/L) 09/16/18 12:01 POC ABG O2 Sat 95 09/16/18 12:01 Abnormal lab findings: Abnormal Labs 09/15/18 09/15/18 09/15/18 22:04 22:04 22:04 MCV MCH 23 L RDW 19.7 H Lymph % (Auto) 12.4 L [place] % (Auto) 11.8 H Lymph # 1.1 L [place] # 1.1 H Seg Neutrophils % 75.5 H POC ABG pH POC ABG pCO2 POC ABG pO2 Sodium 146 H Chloride Carbon Dioxide 32 H BUN Creatinine 0.4 L Glucose 106 H CK-MB (CK-2) Rel Index NT-Pro-B Natriuret Pep 2000 H 09/15/18 09/16/18 09/16/18 23:01 05:13 11:57 MCV MCH RDW Lymph % (Auto) [place] % (Auto) Lymph # [place] # Seg Neutrophils % POC ABG pH 7.321 L POC ABG pCO2 63.7 H POC ABG pO2 62 L Sodium Chloride Carbon Dioxide BUN Creatinine Glucose CK-MB (CK-2) Rel Index 9.2 H 6.9 H NT-Pro-B Natriuret Pep 09/16/18 09/17/18 09/17/18 12:01 04:27 04:27 MCV 77 L MCH 23 L RDW 19.9 H Lymph % (Auto) [place] % (Auto) Lymph # [place] # Seg Neutrophils % POC ABG pH 7.318 L POC ABG pCO2 69.0 H POC ABG pO2 Sodium Chloride 95.3 L Carbon Dioxide BUN 19 H Creatinine 0.6 L Glucose 112 H CK-MB (CK-2) Rel Index NT-Pro-B Natriuret Pep Chest x-ray: image reviewed Allied health notes reviewed: RT
--- NOTE | 2018-09-17 10:52 | Progress Note ---
Assessment and Plan Assessment and plan: Acute on chronic respiratory failure was on BIPAP yesterday Now on Oxygen by NC still wheezing still has shortness of breath but improved chest pain, atypical cardiology following Coronary artery disease On Metoprolol Cardiology Paroxysmal atrial fibrillation Not on anticoagulation because of melena GERD Anxiety and Depression Full code status History Interval history: Less shortness of breath Chest pain atypical Hospitalist Physical - Physical exam Narrative exam: Gen: Not in acute distress, lying in bed, HEENT: Normocephalic, atraumatic Neck: supple, no JVD Heart: S1 and S2 reg, no murmurs, rubs or gallop Lungs: Bilateral rhonchi, wheeze Abd: soft, non tender, non distended, normal BS, Ext: No edema, no clubbing, no cyanosis Neuro: Awake,alert, Oriented X 3. No focal neuro signs Psych: normal mood - Constitutional Vitals: Temp Pulse Resp BP Pulse Ox 97.8 F 131 H 18 128/51 93 09/17/18 08:21 09/17/18 10:21 09/17/18 10:21 09/17/18 10:21 09/17/18 10:21 Results - Labs CBC & Chem 7: 09/17/18 04:27 09/17/18 04:27 Labs: Laboratory Last Values WBC 11.0 K/mm3 (4.5-11.0) 09/17/18 04:27 RBC 4.86 M/mm3 (3.65-5.03) 09/17/18 04:27 Hgb 11.1 gm/dl (10.1-14.3) 09/17/18 04:27 Hct 37.3 % (30.3-42.9) 09/17/18 04:27 MCV 77 fl (79-97) L 09/17/18 04:27 MCH 23 pg (28-32) L 09/17/18 04:27 MCHC 30 % (30-34) 09/17/18 04:27 RDW 19.9 % (13.2-15.2) H 09/17/18 04:27 Plt Count 202 K/mm3 (140-440) 09/17/18 04:27 Lymph % (Auto) 12.4 % (13.4-35.0) L 09/15/18 22:04 [place] % (Auto) 11.8 % (0.0-7.3) H 09/15/18 22:04 Eos % (Auto) 0.0 % (0.0-4.3) 09/15/18 22:04 Baso % (Auto) 0.3 % (0.0-1.8) 09/15/18 22:04 Lymph # 1.1 K/mm3 (1.2-5.4) L 09/15/18 22:04 [place] # 1.1 K/mm3 (0.0-0.8) H 09/15/18 22:04 Eos # 0.0 K/mm3 (0.0-0.4) 09/15/18 22:04 Baso # 0.0 K/mm3 (0.0-0.1) 09/15/18 22:04 Seg Neutrophils % 75.5 % (40.0-70.0) H 09/15/18 22:04 Seg Neutrophils # 6.9 K/mm3 (1.8-7.7) 09/15/18 22:04 POC ABG pH 7.318 (7.35-7.45) L 09/16/18 12:01 POC ABG pCO2 69.0 (35-45) H 09/16/18 12:01 POC ABG pO2 88 (80-105) 09/16/18 12:01 POC ABG HCO3 35.4 (22-26 mml/L) 09/16/18 12:01 POC ABG Total CO2 37 (23-27mmol/L) 09/16/18 12:01 POC ABG O2 Sat 95 09/16/18 12:01 POC ABG Base Excess 9 ((-2) - (+3)mmol/L) 09/16/18 12:01 35 % 09/16/18 12:01 Sodium 138 mmol/L (137-145) D 09/17/18 04:27 Potassium 4.4 mmol/L (3.6-5.0) 09/17/18 04:27 Chloride 95.3 mmol/L (98-107) L 09/17/18 04:27 Carbon Dioxide 29 mmol/L (22-30) 09/17/18 04:27 18 mmol/L 09/17/18 04:27 BUN 19 mg/dL (7-17) H 09/17/18 04:27 0.6 mg/dL (0.7-1.2) L 09/17/18 04:27 Estimated GFR > 60 ml/min 09/17/18 04:27 32 % 09/17/18 04:27 Glucose 112 mg/dL (65-100) H 09/17/18 04:27 Calcium 9.2 mg/dL (8.4-10.2) 09/17/18 04:27 42 units/L (30-135) 09/16/18 11:57 CK-MB (CK-2) 2.9 ng/mL (0.0-4.0) 09/16/18 11:57 CK-MB (CK-2) Rel Index 6.9 (0-4) H 09/16/18 11:57 < 0.010 ng/mL (0.00-0.029) 09/16/18 11:57 NT-Pro-B Natriuret Pep 2001 pg/mL (0-900) H 09/15/18 22:04 Active Medications - Current Medications Current Medications: Generic Name Dose Route Start Last Admin Trade Name Freq PRN Reason Stop Dose Admin Acetaminophen 650 mg 09/16/18 01:38 Tylenol PO Q4H PRN Fever >101 Acetaminophen/Hydrocodone Bitart 1 each 09/16/18 23:03 09/17/18 10:45 [place] 5/325 PO 1 each BID PRN Administration Pain, Moderate (4-6) Albuterol/Ipratropium 1 ampul 09/16/18 08:00 09/17/18 08:42 Duoneb *Not For Prn Use* IH 1 ampul QIDRT DOMINICK Administration Alprazolam 0.25 mg 09/16/18 23:03 Xanax PO Q8H PRN Anxiety Amlodipine Besylate 5 mg 09/17/18 10:00 09/17/18 09:03 Norvasc PO 5 mg DAILY DOMINICK Administration Baclofen 10 mg 09/17/18 10:00 09/17/18 09:01 Lioresal PO 10 mg BID DOMINICK Administration Budesonide 0.5 mg 09/16/18 23:15 09/17/18 08:43 Pulmicort IH 0.5 mg Q12H DOMINICK Administration Buspirone HCl 5 mg 09/17/18 10:00 09/17/18 09:01 Buspar PO 5 mg BID DOMINICK Administration Levofloxacin/Dextrose 750 mg in 150 mls @ 100 mls/hr 09/16/18 10:00 09/17/18 09:04 Levaquin 750mg/150ml IV 09/20/18 11:29 100 mls/hr Q24HR DOMINICK Administration Protocol Methylprednisolone Sodium Succinate 60 mg 09/16/18 06:00 09/17/18 05:54 Solu-Medrol IV 60 mg Q8HR DOMINICK Administration Metoprolol Succinate 100 mg 09/17/18 10:00 09/17/18 09:04 Toprol Xl PO 100 mg QDAY DOMINICK Administration Nitroglycerin 0.4 mg 09/16/18 23:03 Nitrostat SL Q5M PRN Chest Pain Ondansetron HCl 4 mg 09/16/18 01:43 Zofran IV Q8H PRN Nausea And Vomiting Pantoprazole Sodium 40 mg 09/17/18 10:00 09/17/18 09:01 Protonix PO 40 mg QDAY DOMINICK Administration Venlafaxine HCl 25 mg 09/17/18 08:00 09/17/18 08:59 Effexor PO 25 mg TID DOMINICK Administration Venlafaxine HCl 75 mg 09/17/18 08:00 09/17/18 08:59 Effexor PO 75 mg TID DOMINICK Administration
--- NOTE | 2018-09-17 12:30 | Progress Note ---
Assessment and Plan COPD exacerbation Hypoxic respiratory failure Chest pain, atypical an attempted thallium stress test within the past 6 months but this was aborted due to the patient's inability to lay flat from her severe COPD. Coronary artery disease EF 50-55% by echocardiogram 08/2016 Hx of COPD on home oxygen Paroxysmal afib/multifocal atrial tachycardia currently in sinus rhythm not on anticoagulation secondary to melena and anemia. Chronic pain An echocardiogram this admission reports a LVEF 45-50%. Recommendations: Pulmonary and internal medicine for management of COPD, hypoxemia and chronic shortness of breath. Continue medical therapy for coronary artery disease and paroxysmal atrial fibrillation. Subjective Date of service: 09/17/18 Interval history: Patient reports her breathing is better. She denies chest pain. Objective Vital Signs Temp Pulse Pulse Pulse Resp Resp BP 09/17/18 12:00 97.5 F L 09/17/18 10:21 131 H 18 128/51 09/17/18 10:11 127 H 19 128/51 09/17/18 10:01 127 H 13 128/51 09/17/18 10:00 81 09/17/18 09:51 113 H 21 124/68 09/17/18 09:41 104 H 19 124/68 09/17/18 09:31 111 H 19 124/68 09/17/18 09:21 112 H 17 124/68 09/17/18 09:11 106 H 22 124/68 09/17/18 09:04 88 124/68 09/17/18 09:03 88 124/68 09/17/18 09:00 91 H 18 124/68 09/17/18 08:51 89 15 133/59 09/17/18 08:41 80 19 133/59 09/17/18 08:31 86 21 133/59 09/17/18 08:21 97.8 F 84 15 133/59 09/17/18 08:11 88 15 133/59 09/17/18 08:00 97.8 F 85 91 H 82 16 18 133/59 09/17/18 07:51 97 H 22 129/50 09/17/18 07:40 84 16 129/50 09/17/18 07:31 93 H 13 129/50 09/17/18 07:21 86 16 129/50 09/17/18 07:11 84 17 129/50 09/17/18 07:01 89 14 129/50 09/17/18 06:51 92 H 19 121/42 09/17/18 06:41 89 20 121/42 09/17/18 06:31 90 16 121/42 09/17/18 06:21 91 H 11 L 121/42 09/17/18 06:11 99 H 17 121/42 09/17/18 06:00 96.9 F L 90 18 121/42 09/17/18 05:51 92 H 16 113/48 09/17/18 05:41 89 20 113/48 09/17/18 05:31 97 H 18 113/48 09/17/18 05:21 100 H 18 113/48 09/17/18 05:11 93 H 18 113/48 09/17/18 05:00 84 17 113/48 09/17/18 04:51 84 19 95/43 09/17/18 04:41 92 H 18 95/43 09/17/18 04:31 91 H 11 L 95/43 09/17/18 04:21 94 H 19 95/43 09/17/18 04:10 89 17 102/42 09/17/18 04:00 98.7 F 91 H 93 H 24 95/43 09/17/18 03:51 92 H 25 H 102/42 09/17/18 03:41 99 H 22 102/42 09/17/18 03:31 98 H 17 102/42 09/17/18 03:21 91 H 15 102/42 09/17/18 03:11 93 H 20 102/42 09/17/18 03:00 102 H 16 102/42 09/17/18 02:51 94 H 20 97/46 09/17/18 02:41 99 H 17 97/46 09/17/18 02:31 101 H 14 97/46 09/17/18 02:21 102 H 17 97/46 09/17/18 02:11 105 H 17 97/46 09/17/18 02:00 114 H 16 97/46 09/17/18 01:51 107 H 21 109/48 09/17/18 01:41 116 H 15 109/48 09/17/18 01:31 108 H 17 109/48 09/17/18 01:21 107 H 22 109/48 09/17/18 01:11 105 H 20 109/48 09/17/18 01:00 107 H 13 109/48 09/17/18 00:51 99 H 16 110/50 09/17/18 00:41 102 H 17 110/50 09/17/18 00:31 97 H 15 110/50 09/17/18 00:21 104 H 19 110/50 09/17/18 00:12 101 H 15 09/17/18 00:06 99.5 F 09/17/18 00:03 15 09/17/18 00:00 99.5 F 09/16/18 23:10 110 H 23 104/57 09/16/18 23:08 18 09/16/18 23:00 119 H 18 104/57 09/16/18 22:00 109 H 19 97/36 09/16/18 21:00 105 H 15 97/36 09/16/18 20:00 118 H 20 114/43 09/16/18 19:00 134 H 18 114/43 09/16/18 18:00 130 H 16 102/50 09/16/18 17:00 121 H 24 107/50 09/16/18 16:18 123 H 11 L 09/16/18 16:03 112 H 16 09/16/18 16:00 118 H 21 99/39 09/16/18 15:00 130 H 16 99/39 09/16/18 14:00 120 H 21 106/84 09/16/18 13:43 09/16/18 13:00 124 H 23 117/47 BP Pulse Ox 09/17/18 12:00 09/17/18 10:21 93 09/17/18 10:11 91 09/17/18 10:01 91 09/17/18 10:00 09/17/18 09:51 91 09/17/18 09:41 93 09/17/18 09:31 93 09/17/18 09:21 91 09/17/18 09:11 90 09/17/18 09:04 09/17/18 09:03 09/17/18 09:00 90 09/17/18 08:51 95 09/17/18 08:41 95 09/17/18 08:31 92 09/17/18 08:21 96 09/17/18 08:11 94 09/17/18 08:00 94 09/17/18 07:51 93 09/17/18 07:40 97 09/17/18 07:31 95 09/17/18 07:21 96 09/17/18 07:11 94 09/17/18 07:01 95 09/17/18 06:51 95 09/17/18 06:41 96 09/17/18 06:31 95 09/17/18 06:21 96 09/17/18 06:11 96 09/17/18 06:00 93 09/17/18 05:51 95 09/17/18 05:41 95 09/17/18 05:31 91 09/17/18 05:21 95 09/17/18 05:11 93 09/17/18 05:00 94 09/17/18 04:51 95 09/17/18 04:41 93 09/17/18 04:31 94 09/17/18 04:21 93 09/17/18 04:10 92 09/17/18 04:00 94 09/17/18 03:51 95 09/17/18 03:41 90 09/17/18 03:31 94 09/17/18 03:21 94 09/17/18 03:11 94 09/17/18 03:00 96 09/17/18 02:51 95 09/17/18 02:41 95 09/17/18 02:31 94 09/17/18 02:21 94 09/17/18 02:11 94 09/17/18 02:00 93 09/17/18 01:51 94 09/17/18 01:41 93 09/17/18 01:31 92 09/17/18 01:21 93 09/17/18 01:11 94 09/17/18 01:00 94 09/17/18 00:51 93 09/17/18 00:41 94 09/17/18 00:31 95 09/17/18 00:21 94 09/17/18 00:12 94 09/17/18 00:06 09/17/18 00:03 09/17/18 00:00 09/16/18 23:10 86 09/16/18 23:08 09/16/18 23:00 09/16/18 22:00 95 09/16/18 21:00 91 09/16/18 20:00 97 07/31/19 19:00 93 09/16/18 18:00 92 09/16/18 17:00 94 09/16/18 16:18 110/52 100 09/16/18 16:03 09/16/18 16:00 97 09/16/18 15:00 96 09/16/18 14:00 92 09/16/18 13:43 93 09/16/18 13:00 90 - Physical Examination General: No Apparent Distress HEENT: Positive: PERRL Neck: Positive: trachea midline Cardiac: Positive: Tachycardia Lungs: Positive: Decreased Breath Sounds Neuro: Positive: Grossly Intact Extremities: Absent: edema - Labs and Meds Cardiac Enzymes 09/16/18 Range/Units 11:57 CK-MB (CK-2) 2.9 (0.0-4.0) ng/mL CBC 09/17/18 Range/Units 04:27 WBC 11.0 (4.5-11.0) K/mm3 RBC 4.86 (3.65-5.03) M/mm3 Hgb 11.1 (10.1-14.3) gm/dl Hct 37.3 (30.3-42.9) % Plt Count 202 (140-440) K/mm3 Comprehensive Metabolic Panel 09/17/18 Range/Units 04:27 Sodium 138 D (137-145) mmol/L Potassium 4.4 (3.6-5.0) mmol/L Chloride 95.3 L (98-107) mmol/L Carbon Dioxide 29 (22-30) mmol/L BUN 19 H (7-17) mg/dL Creatinine 0.6 L (0.7-1.2) mg/dL Glucose 112 H (65-100) mg/dL Calcium 9.2 (8.4-10.2) mg/dL
[2018-09-17] MEDS: XANAX PO PRN (17:31)
[2018-09-17] MEDS: BUSPAR PO SCH (19:07)
[2018-09-17] MEDS: LIORESAL PO SCH (19:08)
[2018-09-18] MEDS: SOLU-Medrol IV SCH ×3 (04:01→22:05)
[2018-09-18] MEDS: TOPROL XL PO SCH (04:03)
[2018-09-18] MEDS: EFFEXOR PO SCH ×6 (04:03→19:06)
[2018-09-18] MEDS: BUSPAR PO SCH ×2 (04:04→19:05)
[2018-09-18] MEDS: LIORESAL PO SCH ×2 (04:05→19:05)
[2018-09-18] MEDS: PROTONIX PO SCH (04:05)
[2018-09-18] MEDS: NORVASC PO SCH (05:06)
[2018-09-18] MEDS: PULMICORT IH SCH ×3 (09:14→22:55)
[2018-09-18] MEDS: DUONEB *Not for PRN Use IH SCH ×4 (09:14→22:56)
[2018-09-18] MEDS: NORCO 5/325 PO PRN ×2 (09:27→19:05)
[2018-09-18] MEDS: LEVAQUIN 750MG/150ML 750 MG/150 ML BAG IV SCH (09:28)
--- NOTE | 2018-09-18 11:24 | Progress Note ---
Assessment and Plan COPD exacerbation Hypoxic respiratory failure Chest pain, atypical an attempted thallium stress test within the past 6 months but this was aborted due to the patient's inability to lay flat from her severe COPD. Coronary artery disease EF 50-55% by echocardiogram 08/2016 Hx of COPD on home oxygen Paroxysmal afib/multifocal atrial tachycardia currently in sinus rhythm not on anticoagulation secondary to melena and anemia. Chronic pain An echocardiogram this admission reports a LVEF 45-50%. Recommendations: Continue medical therapy for coronary artery disease and paroxysmal atrial fibrillation. Otherwise, conservative cardiac management. Subjective Date of service: 09/18/18 Interval history: Patient reports her breathing is better. No distress noted. Objective Vital Signs Temp Pulse Pulse Pulse Resp Resp BP 09/18/18 11:11 67 20 118/50 09/18/18 11:01 75 13 118/50 09/18/18 10:51 70 12 133/93 09/18/18 10:41 66 19 133/93 09/18/18 10:31 67 12 133/93 09/18/18 10:20 76 11 L 133/93 09/18/18 10:11 67 16 129/53 09/18/18 10:00 84 15 133/93 09/18/18 09:51 75 17 129/53 09/18/18 09:41 70 19 129/53 09/18/18 09:31 65 13 129/53 09/18/18 09:20 70 12 129/53 09/18/18 09:17 09/18/18 09:14 74 18 09/18/18 09:11 79 14 129/53 09/18/18 09:01 74 12 129/53 09/18/18 08:51 65 20 128/56 09/18/18 08:41 62 14 128/56 09/18/18 08:31 63 10 L 128/56 09/18/18 08:21 65 15 128/56 09/18/18 08:11 92 H 25 H 128/56 09/18/18 08:00 67 16 128/56 09/18/18 07:51 63 18 118/56 09/18/18 07:41 65 18 118/56 09/18/18 07:31 69 11 L 118/56 09/18/18 07:21 76 14 118/56 09/18/18 07:11 64 16 118/56 09/18/18 07:01 68 15 118/56 08// 06:50 71 16 135/73 08/02/ 06:41 75 15 135/73 08/02/ 06:31 74 14 135/73 08/02/ 06:21 70 15 135/73 08/02/ 06:11 72 17 135/73 08// 06:01 79 13 135/73 08// 05:51 79 14 132/56 08 05:41 70 16 132/56 08/04/07 05:31 93 H 19 132/56 /04/07 05:21 98 H 19 132/56 /04/07 05:18 97.7 F 09/18/18 05:11 91 H 20 132/56 09/18/18 05:06 80 132/56 09/18/18 05:00 91 H 21 132/56 09/18/18 04:51 80 19 140/66 // 04:41 85 19 140/66 09/18/18 04:31 83 13 140/66 09/18/18 04:21 76 16 140/66 09/18/18 04:11 76 22 140/66 09/18/18 04:03 79 132/56 09/18/18 04:00 71 94 H 17 140/66 09/18/18 03:51 74 15 126/62 08/02/19 03:41 76 12 126/62 /04/07 03:31 84 15 126/62 02/19 03:21 73 14 126/62 09/18/18 03:11 75 16 126/62 09/18/18 03:00 75 16 126/62 09/18/18 02:51 79 14 131/67 09/18/18 02:41 77 15 131/67 /02/19 02:31 86 14 131/67 /0219 02:21 85 18 131/67 19 02:11 105 H 23 131/67 08/0219 02:00 81 19 131/67 /04/07 01:51 85 15 128/63 08/02/19 01:41 83 16 128/63 08/02/19 01:31 82 16 128/63 08/02/19 01:21 109 H 12 128/63 08/02 01:11 83 15 128/63 09/18/18 01:00 86 13 128/63 09/18/18 00:51 92 H 18 118/47 09/18/18 00:41 83 15 118/47 09/18/18 00:31 86 17 118/47 09/18/18 00:21 93 H 15 118/47 09/18/18 00:11 106 H 17 118/47 09/18/18 00:00 98.2 F 96 H 92 H 12 118/47 09/17/18 23:50 117 H 17 128/59 09/17/18 23:40 95 H 12 128/59 09/17/18 23:31 109 H 13 128/59 09/17/18 23:21 93 H 18 128/59 09/17/18 23:11 94 H 18 128/59 09/17/18 23:00 115 H 18 128/59 09/17/18 22:51 96 H 14 111/56 09/17/18 22:41 93 H 19 111/56 09/17/18 22:31 108 H 14 111/56 09/17/18 22:25 107 H 19 111/56 09/17/18 22:21 101 H 18 111/56 09/17/18 22:15 104 H 17 111/56 09/17/18 22:11 139 H 20 111/56 09/17/18 22:00 92 H 17 111/56 09/17/18 21:51 93 H 17 119/67 09/17/18 21:41 101 H 18 119/67 09/17/18 21:31 104 H 17 119/67 09/17/18 21:21 114 H 21 119/67 09/17/18 21:11 117 H 17 119/67 09/17/18 21:00 106 H 18 119/67 09/17/18 20:51 100 H 29 H 117/54 09/17/18 20:44 97.6 F 09/17/18 20:41 105 H 16 117/54 09/17/18 20:31 124 H 17 117/54 09/17/18 20:21 121 H 27 H 117/54 09/17/18 20:11 116 H 19 117/54 09/17/18 20:07 115 H 22 09/17/18 20:00 99.0 F 97 H 96 H 19 117/54 08/01/19 19:51 96 H 18 100/65 09/17/18 19:46 99.0 F 09/17/18 19:41 111 H 17 100/65 09/17/18 19:38 09/17/18 19:31 95 H 17 100/65 09/17/18 19:21 90 19 100/65 09/17/18 19:11 108 H 25 H 100/65 09/17/18 19:00 116 H 21 100/65 09/17/18 18:51 88 20 134/68 09/17/18 18:41 86 15 134/68 09/17/18 18:31 106 H 17 134/68 09/17/18 18:21 94 H 16 134/68 09/17/18 18:11 90 19 134/68 09/17/18 18:00 93 H 16 106/48 09/17/18 17:51 106 H 20 134/68 09/17/18 17:41 93 H 18 134/68 09/17/18 17:31 108 H 18 134/68 09/17/18 17:21 105 H 24 134/68 09/17/18 17:11 98 H 18 110/64 09/17/18 17:01 104 H 18 110/64 09/17/18 16:51 81 17 110/64 09/17/18 16:41 94 H 14 110/64 09/17/18 16:31 105 H 22 110/64 09/17/18 16:21 88 21 110/64 09/17/18 16:11 93 H 22 110/64 09/17/18 16:00 98.0 F 93 H 92 H 88 23 18 110/64 09/17/18 15:51 93 H 22 126/60 09/17/18 15:41 90 16 126/60 09/17/18 15:31 101 H 16 126/60 09/17/18 15:21 98 H 19 126/60 09/17/18 15:11 99 H 14 126/60 09/17/18 15:01 102 H 24 126/60 09/17/18 14:51 95 H 16 126/60 09/17/18 14:41 91 H 17 126/60 09/17/18 14:31 86 18 126/60 09/17/18 14:21 97 H 22 126/60 09/17/18 14:11 102 H 22 126/60 09/17/18 14:00 95 H 11 L 126/60 09/17/18 13:51 98 H 17 105/48 09/17/18 13:41 94 H 14 105/48 09/17/18 13:31 96 H 18 105/48 09/17/18 13:21 92 H 17 105/48 09/17/18 13:11 103 H 16 105/48 09/17/18 13:00 87 19 105/48 09/17/18 12:51 98 H 14 126/52 09/17/18 12:41 111 H 27 H 126/52 09/17/18 12:31 109 H 10 L 126/52 09/17/18 12:21 86 13 126/52 09/17/18 12:11 99 H 15 126/52 09/17/18 12:00 97.5 F L 90 82 16 126/52 09/17/18 11:51 97 H 15 100/33 09/17/18 11:41 103 H 22 100/33 09/17/18 11:31 102 H 19 100/33 Pulse Ox 09/18/18 11:11 94 09/18/18 11:01 95 09/18/18 10:51 92 09/18/18 10:41 98 09/18/18 10:31 98 09/18/18 10:20 97 09/18/18 10:11 97 09/18/18 10:00 89 09/18/18 09:51 95 09/18/18 09:41 96 09/18/18 09:31 96 09/18/18 09:20 95 09/18/18 09:17 93 09/18/18 09:14 09/18/18 09:11 86 09/18/18 09:01 91 09/18/18 08:51 94 09/18/18 08:41 96 09/18/18 08:31 96 09/18/18 08:21 93 09/18/18 08:11 82 L 09/18/18 08:00 95 09/18/18 07:51 93 09/18/18 07:41 93 09/18/18 07:31 95 09/18/18 07:21 94 09/18/18 07:11 94 09/18/18 07:01 94 09/18/18 06:50 95 09/18/18 06:41 100 09/18/18 06:31 96 09/18/18 06:21 98 09/18/18 06:11 98 09/18/18 06:01 100 09/18/18 05:51 100 09/18/18 05:41 97 09/18/18 05:31 92 09/18/18 05:21 93 09/18/18 05:18 09/18/18 05:11 93 09/18/18 05:06 09/18/18 05:00 95 09/18/18 04:51 96 09/18/18 04:41 92 09/18/18 04:31 94 09/18/18 04:21 94 09/18/18 04:11 98 09/18/18 04:03 09/18/18 04:00 99 09/18/18 03:51 95 09/18/18 03:41 88 09/18/18 03:31 92 09/18/18 03:21 92 09/18/18 03:11 92 09/18/18 03:00 92 09/18/18 02:51 92 09/18/18 02:41 92 09/18/18 02:31 94 09/18/18 02:21 92 09/18/18 02:11 86 09/18/18 02:00 97 09/18/18 01:51 94 09/18/18 01:41 93 09/18/18 01:31 93 09/18/18 01:21 94 09/18/18 01:11 94 09/18/18 01:00 95 09/18/18 00:51 91 09/18/18 00:41 93 09/18/18 00:31 93 09/18/18 00:21 95 09/18/18 00:11 95 09/18/18 00:00 95 09/17/18 23:50 92 09/17/18 23:40 92 09/17/18 23:31 92 09/17/18 23:21 92 09/17/18 23:11 92 09/17/18 23:00 94 09/17/18 22:51 99 09/17/18 22:41 92 09/17/18 22:31 94 09/17/18 22:25 95 08/01/19 22:21 96 09/17/18 22:15 93 09/17/18 22:11 91 09/17/18 22:00 93 09/17/18 21:51 96 09/17/18 21:41 95 09/17/18 21:31 98 09/17/18 21:21 96 09/17/18 21:11 97 09/17/18 21:00 94 09/17/18 20:51 92 09/17/18 20:44 09/17/18 20:41 93 09/17/18 20:31 94 09/17/18 20:21 92 09/17/18 20:11 90 09/17/18 20:07 09/17/18 20:00 92 09/17/18 19:51 96 09/17/18 19:46 09/17/18 19:41 95 09/17/18 19:38 95 09/17/18 19:31 95 09/17/18 19:21 93 09/17/18 19:11 91 09/17/18 19:00 89 09/17/18 18:51 97 09/17/18 18:41 97 09/17/18 18:31 95 09/17/18 18:21 99 09/17/18 18:11 96 09/17/18 18:00 95 09/17/18 17:51 92 09/17/18 17:41 83 L 09/17/18 17:31 81 L 09/17/18 17:21 89 09/17/18 17:11 95 09/17/18 17:01 91 09/17/18 16:51 96 09/17/18 16:41 94 09/17/18 16:31 93 09/17/18 16:21 91 09/17/18 16:11 95 09/17/18 16:00 93 09/17/18 15:51 95 09/17/18 15:41 93 09/17/18 15:31 91 09/17/18 15:21 94 09/17/18 15:11 93 09/17/18 15:01 93 09/17/18 14:51 94 09/17/18 14:41 91 09/17/18 14:31 92 09/17/18 14:21 91 09/17/18 14:11 92 09/17/18 14:00 92 09/17/18 13:51 91 09/17/18 13:41 93 09/17/18 13:31 93 09/17/18 13:21 94 09/17/18 13:11 91 09/17/18 13:00 91 09/17/18 12:51 93 09/17/18 12:41 91 09/17/18 12:31 90 09/17/18 12:21 93 09/17/18 12:11 90 09/17/18 12:00 95 09/17/18 11:51 94 09/17/18 11:41 94 09/17/18 11:31 95 - Physical Examination General: No Apparent Distress HEENT: Positive: PERRL Neck: Positive: trachea midline Cardiac: Positive: Reg Rate and Rhythm Lungs: Positive: Decreased Breath Sounds Neuro: Positive: Grossly Intact Extremities: Absent: edema
--- NOTE | 2018-09-18 16:01 | Progress Note ---
Assessment and Plan Acute on chronic hypoxic-hypercapnic respiratory failure AE-COPD Atypical chest pain GERD h/o Coronary artery disease Paroxysmal atrial fibrillation Anxiety and Depression Chronic pain, narcotic dependant h/o Tobacco use disorder, quit June 2017 -Continue with BIPAP qhs and prn -Supplemental oxygen to keep O2 sats 88-90% -Oxygen restrictive strategies -Steroids with slow taper -VTE prophylaxis -Not on therapeutic anticoagulation because of melanotic stools -Therapeutic PPI -Bronchodilators -Pain management, analgesia -Mobility as tolerated , for pressure ulcer prevention -Accucheck with glycemic control while on steroids -Complete antibiotics per primary service, stop after 5 days of therapy. -Cardioprotective measures -Smoking cessation counselling- encouraged to remain quit and avoid pulmonary toxins Continue all supportive care. Discussed with Dr. Black, discussed wi RT/RN Updated the patient and her family at the bedside. Answered all their questions Patient has been admitted twice in the last 2 weeks. Will recommend optimization of care prior to discharge planning. Will need home health/support service on discharge CONDITION: CRITICAL PROGNOSIS: GUARDED CODE STATUS : FULL CODE Subjective Date of service: 09/18/18 Interval history: Patient is seen today for: acute on chronic hypoxemic-hypercapnic resp faiure; AE-COPD; GERD; Atypical chest pain Seen and examined at bedside; 24hour events reviewed; nursing and respiratory care staff consulted; no adverse overnight events reported to me; vitals, labs, medications, imaging reviewed. Was on BIPAP overnight , currently on oxygen via [place] at 3L/min, denies any fevers or chills, no nausea or vomiting. Has shortness of breath and cough which are both improving slowly, Slept well last night, feeling much better. Family visiting t the bedside Objective - Exam Narrative Exam: Gen: Chronically ill looking woman, kyphotic, sitting up in bed in mild respiratory distress with supplemental oxygen, HEENT: Normocephalic, atraumatic Neck: supple, no JVD Back-Khyphoscoliosis with multiple surgical scars Heart: RRR, S1 and S2, no murmurs, rubs or gallop Lungs: Diminished BS bilaterally(posteriorly);Bilateral rhonchi, no wheeze Abd: soft, non tender, non distended, normal BS, Ext: No edema, no clubbing, no cyanosis Neuro: Awake,alert, Oriented X 3. No focal neurologic signs Psych: Normal affect, normal mood Vital Signs - 12hr 08/02/19 08/02/19 08/02/19 04:03 04:11 04:21 Temperature Pulse Rate 79 76 76 Pulse Rate [ Anterior Bilateral Upper Lobe] Respiratory 22 16 Rate Respiratory Rate [Anterior Bilateral Upper Lobe] Blood Pressure 132/56 140/66 140/66 O2 Sat by Pulse 98 94 Oximetry 09/18/18 09/18/18 09/18/18 04:31 04:41 04:51 Temperature Pulse Rate 83 85 80 Pulse Rate [ Anterior Bilateral Upper Lobe] Respiratory 13 19 19 Rate Respiratory Rate [Anterior Bilateral Upper Lobe] Blood Pressure 140/66 140/66 140/66 O2 Sat by Pulse 94 92 96 Oximetry 09/18/18 09/18/18 09/18/18 05:00 05:06 05:11 Temperature Pulse Rate 91 H 80 91 H Pulse Rate [ Anterior Bilateral Upper Lobe] Respiratory 21 20 Rate Respiratory Rate [Anterior Bilateral Upper Lobe] Blood Pressure 132/56 132/56 132/56 O2 Sat by Pulse 95 93 Oximetry 09/18/18 09/18/18 09/18/18 05:18 05:21 05:31 Temperature 97.7 F Pulse Rate 98 H 93 H Pulse Rate [ Anterior Bilateral Upper Lobe] Respiratory 19 19 Rate Respiratory Rate [Anterior Bilateral Upper Lobe] Blood Pressure 132/56 132/56 O2 Sat by Pulse 93 92 Oximetry 09/18/18 09/18/18 09/18/18 05:41 05:51 06:01 Temperature Pulse Rate 70 79 79 Pulse Rate [ Anterior Bilateral Upper Lobe] Respiratory 16 14 13 Rate Respiratory Rate [Anterior Bilateral Upper Lobe] Blood Pressure 132/56 132/56 135/73 O2 Sat by Pulse 97 100 100 Oximetry 09/18/18 09/18/18 09/18/18 06:11 06:21 06:31 Temperature Pulse Rate 72 70 74 Pulse Rate [ Anterior Bilateral Upper Lobe] Respiratory 17 15 14 Rate Respiratory Rate [Anterior Bilateral Upper Lobe] Blood Pressure 135/73 135/73 135/73 O2 Sat by Pulse 98 98 96 Oximetry 09/18/18 09/18/18 09/18/18 06:41 06:50 07:01 Temperature Pulse Rate 75 71 68 Pulse Rate [ Anterior Bilateral Upper Lobe] Respiratory 15 16 15 Rate Respiratory Rate [Anterior Bilateral Upper Lobe] Blood Pressure 135/73 135/73 118/56 O2 Sat by Pulse 100 95 94 Oximetry 09/18/18 09/18/18 09/18/18 07:11 07:21 07:31 Temperature Pulse Rate 64 76 69 Pulse Rate [ Anterior Bilateral Upper Lobe] Respiratory 16 14 11 L Rate Respiratory Rate [Anterior Bilateral Upper Lobe] Blood Pressure 118/56 118/56 118/56 O2 Sat by Pulse 94 94 95 Oximetry 09/18/18 09/18/18 09/18/18 07:41 07:51 08:00 Temperature Pulse Rate 65 63 67 Pulse Rate [ Anterior Bilateral Upper Lobe] Respiratory 18 18 16 Rate Respiratory Rate [Anterior Bilateral Upper Lobe] Blood Pressure 118/56 118/56 128/56 O2 Sat by Pulse 93 93 95 Oximetry 09/18/18 09/18/18 09/18/18 08:11 08:21 08:31 Temperature Pulse Rate 92 H 65 63 Pulse Rate [ Anterior Bilateral Upper Lobe] Respiratory 25 H 15 10 L Rate Respiratory Rate [Anterior Bilateral Upper Lobe] Blood Pressure 128/56 128/56 128/56 O2 Sat by Pulse 82 L 93 96 Oximetry 09/18/18 09/18/18 09/18/18 08:41 08:51 09:01 Temperature Pulse Rate 62 65 74 Pulse Rate [ Anterior Bilateral Upper Lobe] Respiratory 14 20 12 Rate Respiratory Rate [Anterior Bilateral Upper Lobe] Blood Pressure 128/56 128/56 129/53 O2 Sat by Pulse 96 94 91 Oximetry 09/18/18 09/18/18 09/18/18 09:11 09:14 09:17 Temperature Pulse Rate 79 Pulse Rate [ 74 Anterior Bilateral Upper Lobe] Respiratory 14 Rate Respiratory 18 Rate [Anterior Bilateral Upper Lobe] Blood Pressure 129/53 O2 Sat by Pulse 86 93 Oximetry 09/18/18 09/18/18 09/18/18 09:20 09:31 09:41 Temperature Pulse Rate 70 65 70 Pulse Rate [ Anterior Bilateral Upper Lobe] Respiratory 12 13 19 Rate Respiratory Rate [Anterior Bilateral Upper Lobe] Blood Pressure 129/53 129/53 129/53 O2 Sat by Pulse 95 96 96 Oximetry 09/18/18 09/18/18 09/18/18 09:51 10:00 10:11 Temperature Pulse Rate 75 84 67 Pulse Rate [ Anterior Bilateral Upper Lobe] Respiratory 17 15 16 Rate Respiratory Rate [Anterior Bilateral Upper Lobe] Blood Pressure 129/53 133/93 129/53 O2 Sat by Pulse 95 89 97 Oximetry 09/18/18 09/18/1809/18/19 10:20 10:31 10:41 Temperature Pulse Rate 76 67 66 Pulse Rate [ Anterior Bilateral Upper Lobe] Respiratory 11 L 12 19 Rate Respiratory Rate [Anterior Bilateral Upper Lobe] Blood Pressure 133/93 133/93 133/93 O2 Sat by Pulse 97 98 98 Oximetry 09/18/18 09/18/18 09/18/18 10:51 11:01 11:11 Temperature Pulse Rate 70 75 67 Pulse Rate [ Anterior Bilateral Upper Lobe] Respiratory 12 13 20 Rate Respiratory Rate [Anterior Bilateral Upper Lobe] Blood Pressure 133/93 118/50 118/50 O2 Sat by Pulse 92 95 94 Oximetry 09/18/18 12:56 Temperature Pulse Rate Pulse Rate [ 87 Anterior Bilateral Upper Lobe] Respiratory Rate Respiratory 18 Rate [Anterior Bilateral Upper Lobe] Blood Pressure O2 Sat by Pulse Oximetry CBC and BMP: 09/17/18 04:27 09/17/18 04:27 ABG, PT/INR, D-dimer: ABG POC ABG pH 7.318 (7.35-7.45) L 09/16/18 12:01 POC ABG pCO2 69.0 (35-45) H 09/16/18 12:01 POC ABG pO2 88 (80-105) 09/16/18 12:01 POC ABG HCO3 35.4 (22-26 mml/L) 09/16/18 12:01 POC ABG Total CO2 37 (23-27mmol/L) 09/16/18 12:01 POC ABG O2 Sat 95 09/16/18 12:01 Abnormal lab findings: Abnormal Labs 09/15/18 09/15/18 09/15/18 22:04 22:04 22:04 MCV MCH 23 L RDW 19.7 H Lymph % (Auto) 12.4 L [place] % (Auto) 11.8 H Lymph # 1.1 L [place] # 1.1 H Seg Neutrophils % 75.5 H POC ABG pH POC ABG pCO2 POC ABG pO2 Sodium 146 H Chloride Carbon Dioxide 32 H BUN Creatinine 0.4 L Glucose 106 H CK-MB (CK-2) Rel Index NT-Pro-B Natriuret Pep 2001 H 09/15/18 09/16/18 09/16/18 23:01 05:13 11:57 MCV MCH RDW Lymph % (Auto) [place] % (Auto) Lymph # [place] # Seg Neutrophils % POC ABG pH 7.321 L POC ABG pCO2 63.7 H POC ABG pO2 62 L Sodium Chloride Carbon Dioxide BUN Creatinine Glucose CK-MB (CK-2) Rel Index 9.2 H 6.9 H NT-Pro-B Natriuret Pep 09/16/18 09/17/18 09/17/18 12:01 04:27 04:27 MCV 77 L MCH 23 L RDW 19.9 H Lymph % (Auto) [place] % (Auto) Lymph # [place] # Seg Neutrophils % POC ABG pH 7.318 L POC ABG pCO2 69.0 H POC ABG pO2 Sodium Chloride 95.3 L Carbon Dioxide BUN 19 H Creatinine 0.6 L Glucose 112 H CK-MB (CK-2) Rel Index NT-Pro-B Natriuret Pep
--- NOTE | 2018-09-18 16:53 | Progress Note ---
Assessment and Plan Assessment and plan: Acute on chronic respiratory failure was on BIPAP in ED now off BIPAP Now on Oxygen by NC still wheezing still has shortness of breath but improved chest pain, atypical cardiology following Coronary artery disease On Metoprolol Cardiology Paroxysmal atrial fibrillation Not on anticoagulation because of melena GERD Anxiety and Depression Full code status patient still shortness of breath, not stable for discharge History Interval history: Less shortness of breath Chest pain atypical Hospitalist Physical - Physical exam Narrative exam: Gen: Not in acute distress, sitting up in bed, HEENT: Normocephalic, atraumatic Neck: supple, no JVD Heart: S1 and S2 reg, no murmurs, rubs or gallop Lungs: Bilateral rhonchi, wheeze Abd: soft, non tender, non distended, normal BS, Ext: No edema, no clubbing, no cyanosis Neuro: Awake,alert, Oriented X 3. No focal neuro signs Psych: normal mood - Constitutional Vitals: Temp Pulse Resp BP Pulse Ox 97.7 F 87 18 118/50 94 09/18/18 05:18 09/18/18 12:56 09/18/18 12:56 09/18/18 11:11 09/18/18 11:11 General appearance: Present: other (on Bipap) Results - Labs CBC & Chem 7: 09/17/18 04:27 09/17/18 04:27 Labs: Laboratory Last Values WBC 11.0 K/mm3 (4.5-11.0) 09/17/18 04:27 RBC 4.86 M/mm3 (3.65-5.03) 09/17/18 04:27 Hgb 11.1 gm/dl (10.1-14.3) 09/17/18 04:27 Hct 37.3 % (30.3-42.9) 09/17/18 04:27 MCV 77 fl (79-97) L 09/17/18 04:27 MCH 23 pg (28-32) L 09/17/18 04:27 MCHC 30 % (30-34) 09/17/18 04:27 RDW 19.9 % (13.2-15.2) H 09/17/18 04:27 Plt Count 202 K/mm3 (140-440) 09/17/18 04:27 Lymph % (Auto) 12.4 % (13.4-35.0) L 09/15/18 22:04 [place] % (Auto) 11.8 % (0.0-7.3) H 09/15/18 22:04 Eos % (Auto) 0.0 % (0.0-4.3) 09/15/18 22:04 Baso % (Auto) 0.3 % (0.0-1.8) 09/15/18 22:04 Lymph # 1.1 K/mm3 (1.2-5.4) L 09/15/18 22:04 [place] # 1.1 K/mm3 (0.0-0.8) H 09/15/18 22:04 Eos # 0.0 K/mm3 (0.0-0.4) 09/15/18 22:04 Baso # 0.0 K/mm3 (0.0-0.1) 09/15/18 22:04 Seg Neutrophils % 75.5 % (40.0-70.0) H 09/15/18 22:04 Seg Neutrophils # 6.9 K/mm3 (1.8-7.7) 09/15/18 22:04 POC ABG pH 7.318 (7.35-7.45) L 09/16/18 12:01 POC ABG pCO2 69.0 (35-45) H 09/16/18 12:01 POC ABG pO2 88 (80-105) 09/16/18 12:01 POC ABG HCO3 35.4 (22-26 mml/L) 09/16/18 12:01 POC ABG Total CO2 37 (23-27mmol/L) 09/16/18 12:01 POC ABG O2 Sat 95 09/16/18 12:01 POC ABG Base Excess 9 ((-2) - (+3)mmol/L) 09/16/18 12:01 35 % 09/16/18 12:01 Sodium 138 mmol/L (137-145) D 09/17/18 04:27 Potassium 4.4 mmol/L (3.6-5.0) 09/17/18 04:27 Chloride 95.3 mmol/L (98-107) L 09/17/18 04:27 Carbon Dioxide 29 mmol/L (22-30) 09/17/18 04:27 18 mmol/L 09/17/18 04:27 BUN 19 mg/dL (7-17) H 09/17/18 04:27 0.6 mg/dL (0.7-1.2) L 09/17/18 04:27 Estimated GFR > 60 ml/min 09/17/18 04:27 32 % 09/17/18 04:27 Glucose 112 mg/dL (65-100) H 09/17/18 04:27 Calcium 9.2 mg/dL (8.4-10.2) 09/17/18 04:27 42 units/L (30-135) 09/16/18 11:57 CK-MB (CK-2) 2.9 ng/mL (0.0-4.0) 09/16/18 11:57 CK-MB (CK-2) Rel Index 6.9 (0-4) H 09/16/18 11:57 < 0.010 ng/mL (0.00-0.029) 09/16/18 11:57 NT-Pro-B Natriuret Pep 2001 pg/mL (0-900) H 09/15/18 22:04 Active Medications - Current Medications Current Medications: Generic Name Dose Route Start Last Admin Trade Name Freq PRN Reason Stop Dose Admin Acetaminophen 650 mg 09/16/18 01:38 Tylenol PO Q4H PRN Fever >101 Acetaminophen/Hydrocodone Bitart 1 each 09/16/18 23:03 09/18/18 09:27 [place] 5/325 PO 1 each BID PRN Administration Pain, Moderate (4-6) Albuterol/Ipratropium 1 ampul 09/16/18 08:00 09/18/18 12:55 Duoneb *Not For Prn Use* IH 1 ampul QIDRT DOMINICK Administration Alprazolam 0.25 mg 09/16/18 23:03 09/17/18 17:31 Xanax PO 0.25 mg Q8H PRN Administration Anxiety Amlodipine Besylate 5 mg 09/18/18 04:00 09/18/18 05:06 Norvasc PO 5 mg DAILY@0400 DOMINICK Administration Baclofen 10 mg 09/17/18 19:00 09/18/18 04:05 Lioresal PO 10 mg 0400,1900 DOMINICK Administration Budesonide 0.5 mg 09/16/18 23:15 08/02/19 12:54 Pulmicort IH Not Given Q12H DOMINICK Buspirone HCl 5 mg 09/17/18 19:00 09/18/18 04:04 Buspar PO 5 mg 0400,1900 [facility] Administration Levofloxacin/Dextrose 750 mg in 150 mls @ 100 mls/hr 09/16/18 10:00 09/18/18 09:28 Levaquin 750mg/150ml IV 09/20/18 11:29 100 mls/hr Q24HR DOMINICK Administration Protocol Methylprednisolone Sodium Succinate 60 mg 09/16/18 06:00 09/18/18 13:21 Solu-Medrol IV 60 mg Q8HR DOMINICK Administration Metoprolol Succinate 100 mg 09/18/18 04:00 09/18/18 04:03 Toprol Xl PO 100 mg DAILY@0400 DOMINICK Administration Nitroglycerin 0.4 mg 09/16/18 23:03 Nitrostat SL Q5M PRN Chest Pain Ondansetron HCl 4 mg 09/16/18 01:43 Zofran IV Q8H PRN Nausea And Vomiting Pantoprazole Sodium 40 mg 09/18/18 04:00 09/18/18 04:05 Protonix PO 40 mg DAILY@0400 [facility] Administration Venlafaxine HCl 25 mg 09/17/18 19:00 09/18/18 12:49 Effexor PO 25 mg 0400,1200,1900 DOMINICK Administration Venlafaxine HCl 75 mg 09/17/18 19:00 09/18/18 12:49 Effexor PO 75 mg 0400,1200,1900 [facility] Administration Nutrition/Malnutrition Assess - Dietary Evaluation Nutrition/Malnutrition Findings: Nutrition Notes Start: 09/17/18 10:56 Freq: Status: Active Protocol: Document 09/17/18 10:56 LP (Rec: 09/17/18 11:00 LP [id number]) Nutrition Notes 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 Pt was just here not too long ago. Pt denied needing supplement this visit. Nutrition Intervention Revisit per MD consult or patient Sign Off request:
[2018-09-19] MEDS: XANAX PO PRN ×2 (00:18→18:28)
--- NOTE | 2018-09-19 00:27 | Progress Note ---
Assessment and Plan COPD exacerbation Hypoxic respiratory failure Chest pain, atypical an attempted thallium stress test within the past 6 months but this was aborted due to the patient's inability to lay flat from her severe COPD. Coronary artery disease EF 50-55% by echocardiogram 08/2016 Hx of COPD on home oxygen Paroxysmal afib/multifocal atrial tachycardia currently in sinus rhythm not on anticoagulation secondary to melena and anemia. Chronic pain An echocardiogram this admission reports a LVEF 45-50%. Recommendations: Continue medical therapy for coronary artery disease and paroxysmal atrial fibrillation. Otherwise, conservative cardiac management. Subjective Date of service: 09/19/18 Interval history: No acute events. Resting comfortably. No chest pain or SOB. Objective Vital Signs Temp Pulse Pulse Pulse Resp Resp BP 09/18/18 23:31 78 12 122/62 09/18/18 23:21 67 14 122/62 09/18/18 23:11 67 10 L 122/62 09/18/18 23:05 97.8 F 09/18/18 23:00 66 14 122/62 09/18/18 22:56 68 11 L 09/18/18 22:51 74 14 129/55 09/18/18 22:41 62 16 129/55 09/18/18 22:31 66 11 L 129/55 09/18/18 22:21 73 14 129/55 09/18/18 22:11 73 12 129/55 09/18/18 22:00 67 14 129/55 09/18/18 21:51 87 16 130/56 09/18/18 21:41 77 19 130/56 09/18/18 21:31 78 14 130/56 09/18/18 21:21 77 15 130/56 09/18/18 21:11 69 17 130/56 09/18/18 21:00 73 15 130/56 09/18/18 20:51 72 15 125/64 09/18/18 20:41 74 16 125/64 09/18/18 20:31 76 16 125/64 09/18/18 20:21 70 25 H 125/64 09/18/18 20:11 82 16 125/64 09/18/18 20:00 77 95 H 21 125/64 09/18/18 19:51 72 17 116/54 09/18/18 19:41 75 16 116/54 08/02/19 19:36 97.6 F 09/18/18 19:31 71 18 116/54 09/18/18 19:21 76 17 116/54 09/18/18 19:10 84 12 09/18/18 19:00 80 18 116/54 09/18/18 18:51 93 H 15 115/57 09/18/18 18:41 86 15 115/57 09/18/18 18:31 81 14 115/57 09/18/18 18:21 86 13 115/57 09/18/18 18:11 96 H 21 115/57 09/18/18 18:00 78 18 115/57 09/18/18 17:51 74 17 139/55 09/18/18 17:40 88 14 139/55 09/18/18 17:31 71 18 139/55 09/18/18 17:21 67 13 139/55 09/18/18 17:11 81 15 139/55 09/18/18 17:03 85 18 09/18/18 17:00 78 14 139/55 09/18/18 16:51 73 15 130/66 09/18/18 16:41 71 17 130/66 09/18/18 16:31 77 12 130/66 09/18/18 16:21 72 10 L 130/66 09/18/18 16:11 81 12 130/66 09/18/18 16:01 63 14 130/66 09/18/18 15:51 64 13 121/56 09/18/18 15:41 65 12 121/56 09/18/18 15:31 68 18 121/56 09/18/18 15:21 81 22 121/56 09/18/18 15:11 63 16 121/56 09/18/18 15:00 67 14 121/56 09/18/18 14:51 70 16 128/62 09/18/18 14:41 84 17 128/62 09/18/18 14:31 69 15 128/62 09/18/18 14:21 62 14 128/62 09/18/18 14:11 68 15 128/62 09/18/18 14:00 70 11 L 128/62 09/18/18 13:51 71 14 113/53 09/18/18 13:41 76 13 113/53 09/18/18 13:31 83 23 113/53 09/18/18 13:21 78 14 113/53 09/18/18 13:11 77 18 113/53 09/18/18 13:00 80 15 113/53 09/18/18 12:56 87 18 09/18/18 12:51 79 10 L 118/50 09/18/18 12:41 71 13 118/50 09/18/18 12:31 74 15 118/50 09/18/18 12:21 79 16 118/50 09/18/18 12:11 70 14 118/50 09/18/18 12:01 62 8 L 118/50 09/18/18 11:51 67 21 118/50 09/18/18 11:41 69 15 118/50 09/18/18 11:31 64 17 118/50 09/18/18 11:21 71 15 118/50 09/18/18 11:11 67 20 118/50 09/18/18 11:01 75 13 118/50 09/18/18 10:51 70 12 133/93 09/18/18 10:41 66 19 133/93 09/18/18 10:31 67 12 133/93 09/18/18 10:20 76 11 L 133/93 09/18/18 10:11 67 16 129/53 09/18/18 10:00 84 15 133/93 09/18/18 09:51 75 17 129/53 09/18/18 09:41 70 19 129/53 09/18/18 09:31 65 13 129/53 09/18/18 09:20 70 12 129/53 09/18/18 09:17 09/18/18 09:14 74 18 09/18/18 09:11 79 14 129/53 09/18/18 09:01 74 12 129/53 09/18/18 08:51 65 20 128/56 09/18/18 08:41 62 14 128/56 09/18/18 08:31 63 10 L 128/56 09/18/18 08:21 65 15 128/56 09/18/18 08:11 92 H 25 H 128/56 09/18/18 08:00 67 16 128/56 09/18/18 07:51 63 18 118/56 09/18/18 07:41 65 18 118/56 09/18/18 07:31 69 11 L 118/56 08/02/19 07:21 76 14 118/56 08/02/19 07:11 64 16 118/56 08// 07:01 68 15 118/56 08/02/19 06:50 71 16 135/73 08/02/19 06:41 75 15 135/73 08/02/19 06:31 74 14 135/73 08/02/19 06:21 70 15 135/73 08/02/ 06:11 72 17 135/73 /04/07 06:01 79 13 135/73 08 05:51 79 14 132/56 /04/07 05:41 70 16 132/56 09/18/18 05:31 93 H 19 132/56 09/18/18 05:21 98 H 19 132/56 /04/07 05:18 97.7 F 09/18/18 05:11 91 H 20 132/56 09/18/18 05:06 80 132/56 09/18/18 05:00 91 H 21 132/56 09/18/18 04:51 80 19 140/66 08/04/07 04:41 85 19 140/66 09/18/18 04:31 83 13 140/66 /04/07 04:21 76 16 140/66 09/18/18 04:11 76 22 140/66 /04/07 04:03 79 132/56 09/18/18 04:00 71 94 H 17 140/66 09/18/18 03:51 74 15 126/62 08/02/19 03:41 76 12 126/62 08/02 03:31 84 15 126/62 /02 03:21 73 14 126/62 /0219 03:11 75 16 126/62 /04/07 03:00 75 16 126/62 /02/19 02:51 79 14 131/67 08/0219 02:41 77 15 131/67 /02/19 02:31 86 14 131/67 08/02/19 02:21 85 18 131/67 09/18/18 02:11 105 H 23 131/67 08/02/19 02:00 81 19 131/67 09/18/18 01:51 85 15 128/63 /02 01:41 83 16 128/63 08/04/07 01:31 82 16 128/63 09/18/18 01:21 109 H 12 128/63 09/18/18 01:11 83 15 128/63 09/18/18 01:00 86 13 128/63 09/18/18 00:51 92 H 18 118/47 09/18/18 00:41 83 15 118/47 09/18/18 00:31 86 17 118/47 Pulse Ox 09/18/18 23:31 97 09/18/18 23:21 97 09/18/18 23:11 95 09/18/18 23:05 09/18/18 23:00 96 09/18/18 22:56 09/18/18 22:51 97 09/18/18 22:41 98 09/18/18 22:31 96 09/18/18 22:21 95 09/18/18 22:11 97 09/18/18 22:00 95 09/18/18 21:51 91 09/18/18 21:41 98 09/18/18 21:31 98 09/18/18 21:21 97 09/18/18 21:11 98 09/18/18 21:00 98 09/18/18 20:51 98 09/18/18 20:41 100 09/18/18 20:31 99 09/18/18 20:21 98 09/18/18 20:11 99 09/18/18 20:00 95 09/18/18 19:51 96 09/18/18 19:41 94 09/18/18 19:36 09/18/18 19:31 98 09/18/18 19:21 92 09/18/18 19:10 96 09/18/18 19:00 94 09/18/18 18:51 97 09/18/18 18:41 96 09/18/18 18:31 96 09/18/18 18:21 97 09/18/18 18:11 84 09/18/18 18:00 90 09/18/18 17:51 96 09/18/18 17:40 93 09/18/18 17:31 94 09/18/18 17:21 93 09/18/18 17:11 82 L 09/18/18 17:03 09/18/18 17:00 93 09/18/18 16:51 93 09/18/18 16:41 95 09/18/18 16:31 94 09/18/18 16:21 88 09/18/18 16:11 88 09/18/18 16:01 100 09/18/18 15:51 100 09/18/18 15:41 100 09/18/18 15:31 90 09/18/18 15:21 99 09/18/18 15:11 97 09/18/18 15:00 97 09/18/18 14:51 99 09/18/18 14:41 95 09/18/18 14:31 96 09/18/18 14:21 97 09/18/18 14:11 94 09/18/18 14:00 97 09/18/18 13:51 94 09/18/18 13:41 93 09/18/18 13:31 95 09/18/18 13:21 94 09/18/18 13:11 92 09/18/18 13:00 95 09/18/18 12:56 09/18/18 12:51 95 09/18/18 12:41 98 09/18/18 12:31 93 09/18/18 12:21 91 09/18/18 12:11 87 09/18/18 12:01 96 09/18/18 11:51 95 09/18/18 11:41 92 09/18/18 11:31 94 09/18/18 11:21 95 09/18/18 11:11 94 09/18/18 11:01 95 09/18/18 10:51 92 09/18/18 10:41 98 09/18/18 10:31 98 09/18/18 10:20 97 09/18/18 10:11 97 09/18/18 10:00 89 09/18/18 09:51 95 09/18/18 09:41 96 09/18/18 09:31 96 09/18/18 09:20 95 09/18/18 09:17 93 09/18/18 09:14 09/18/18 09:11 86 09/18/18 09:01 91 09/18/18 08:51 94 09/18/18 08:41 96 09/18/18 08:31 96 09/18/18 08:21 93 09/18/18 08:11 82 L 09/18/18 08:00 95 09/18/18 07:51 93 09/18/18 07:41 93 09/18/18 07:31 95 09/18/18 07:21 94 09/18/18 07:11 94 09/18/18 07:01 94 09/18/18 06:50 95 09/18/18 06:41 100 09/18/18 06:31 96 09/18/18 06:21 98 09/18/18 06:11 98 09/18/18 06:01 100 09/18/18 05:51 100 09/18/18 05:41 97 09/18/18 05:31 92 09/18/18 05:21 93 09/18/18 05:18 09/18/18 05:11 93 09/18/18 05:06 09/18/18 05:00 95 09/18/18 04:51 96 09/18/18 04:41 92 09/18/18 04:31 94 09/18/18 04:21 94 09/18/18 04:11 98 09/18/18 04:03 09/18/18 04:00 99 09/18/18 03:51 95 09/18/18 03:41 88 09/18/18 03:31 92 09/18/18 03:21 92 09/18/18 03:11 92 09/18/18 03:00 92 09/18/18 02:51 92 09/18/18 02:41 92 09/18/18 02:31 94 09/18/18 02:21 92 09/18/18 02:11 86 09/18/18 02:00 97 09/18/18 01:51 94 09/18/18 01:41 93 09/18/18 01:31 93 09/18/18 01:21 94 09/18/18 01:11 94 09/18/18 01:00 95 09/18/18 00:51 91 09/18/18 00:41 93 09/18/18 00:31 93 - Physical Examination General: No Apparent Distress HEENT: Positive: PERRL Neck: Positive: trachea midline Neuro: Positive: Grossly Intact Extremities: Absent: edema
[2018-09-19] MEDS: BUSPAR PO SCH ×2 (03:24→18:23)
[2018-09-19] MEDS: EFFEXOR PO SCH ×6 (03:25→18:24)
[2018-09-19] MEDS: PROTONIX PO SCH (03:26)
[2018-09-19] MEDS: TOPROL XL PO SCH (03:26)
[2018-09-19] MEDS: LIORESAL PO SCH ×2 (03:27→18:23)
[2018-09-19] MEDS: NORVASC PO SCH (03:27)
[2018-09-19] MEDS: SOLU-Medrol IV SCH ×3 (06:16→21:13)
[2018-09-19] MEDS: DUONEB *Not for PRN Use IH SCH ×4 (08:16→20:54)
[2018-09-19] MEDS: PULMICORT IH SCH ×2 (08:17→11:46)
[2018-09-19] MEDS: NORCO 5/325 PO PRN ×2 (08:37→21:13)
[2018-09-19] MEDS: LEVAQUIN 750MG/150ML 750 MG/150 ML BAG IV SCH (09:14)
--- NOTE | 2018-09-19 09:18 | Progress Note ---
Assessment and Plan Assessment and plan: Acute on chronic respiratory failure was on BIPAP in ED now off BIPAP Now on Oxygen by NC Still wheezing, less wheezing Still has shortness of breath but improved Chest pain, atypical cardiology following Coronary artery disease On Metoprolol Cardiology Paroxysmal atrial fibrillation Not on anticoagulation because of melena GERD Anxiety and Depression Full code status Patient still shortness of breath, not stable for discharge History Interval history: Less shortness of breath Chest pain atypical Hospitalist Physical - Physical exam Narrative exam: Gen: Not in acute distress, sitting up in bed, HEENT: Normocephalic, atraumatic Neck: supple, no JVD Heart: S1 and S2 reg, no murmurs, rubs or gallop Lungs: Bilateral rhonchi, wheeze Abd: soft, non tender, non distended, normal BS, Ext: No edema, no clubbing, no cyanosis Neuro: Awake,alert, Oriented X 3. No focal neuro signs Psych: normal mood - Constitutional Vitals: Temp Pulse Resp BP Pulse Ox 98.9 F 60 12 134/57 97 09/19/18 03:03 09/19/18 08:21 09/19/18 08:21 09/19/18 08:21 09/19/18 08:21 General appearance: Present: other (on Bipap) Results - Labs CBC & Chem 7: 09/17/18 04:27 09/17/18 04:27 Labs: Laboratory Last Values WBC 11.0 K/mm3 (4.5-11.0) 09/17/18 04:27 RBC 4.86 M/mm3 (3.65-5.03) 09/17/18 04:27 Hgb 11.1 gm/dl (10.1-14.3) 09/17/18 04:27 Hct 37.3 % (30.3-42.9) 09/17/18 04:27 MCV 77 fl (79-97) L 09/17/18 04:27 MCH 23 pg (28-32) L 09/17/18 04:27 MCHC 30 % (30-34) 09/17/18 04:27 RDW 19.9 % (13.2-15.2) H 09/17/18 04:27 Plt Count 202 K/mm3 (140-440) 09/17/18 04:27 Lymph % (Auto) 12.4 % (13.4-35.0) L 09/15/18 22:04 [place] % (Auto) 11.8 % (0.0-7.3) H 09/15/18 22:04 Eos % (Auto) 0.0 % (0.0-4.3) 09/15/18 22:04 Baso % (Auto) 0.3 % (0.0-1.8) 09/15/18 22:04 Lymph # 1.1 K/mm3 (1.2-5.4) L 09/15/18 22:04 [place] # 1.1 K/mm3 (0.0-0.8) H 09/15/18 22:04 Eos # 0.0 K/mm3 (0.0-0.4) 09/15/18 22:04 Baso # 0.0 K/mm3 (0.0-0.1) 09/15/18 22:04 Seg Neutrophils % 75.5 % (40.0-70.0) H 09/15/18 22:04 Seg Neutrophils # 6.9 K/mm3 (1.8-7.7) 09/15/18 22:04 POC ABG pH 7.318 (7.35-7.45) L 09/16/18 12:01 POC ABG pCO2 69.0 (35-45) H 09/16/18 12:01 POC ABG pO2 88 (80-105) 09/16/18 12:01 POC ABG HCO3 35.4 (22-26 mml/L) 09/16/18 12:01 POC ABG Total CO2 37 (23-27mmol/L) 09/16/18 12:01 POC ABG O2 Sat 95 09/16/18 12:01 POC ABG Base Excess 9 ((-2) - (+3)mmol/L) 09/16/18 12:01 35 % 09/16/18 12:01 Sodium 138 mmol/L (137-145) D 09/17/18 04:27 Potassium 4.4 mmol/L (3.6-5.0) 09/17/18 04:27 Chloride 95.3 mmol/L (98-107) L 09/17/18 04:27 Carbon Dioxide 29 mmol/L (22-30) 09/17/18 04:27 18 mmol/L 09/17/18 04:27 BUN 19 mg/dL (7-17) H 09/17/18 04:27 0.6 mg/dL (0.7-1.2) L 09/17/18 04:27 Estimated GFR > 60 ml/min 09/17/18 04:27 32 % 09/17/18 04:27 Glucose 112 mg/dL (65-100) H 09/17/18 04:27 Calcium 9.2 mg/dL (8.4-10.2) 09/17/18 04:27 42 units/L (30-135) 09/16/18 11:57 CK-MB (CK-2) 2.9 ng/mL (0.0-4.0) 09/16/18 11:57 CK-MB (CK-2) Rel Index 6.9 (0-4) H 09/16/18 11:57 < 0.010 ng/mL (0.00-0.029) 09/16/18 11:57 NT-Pro-B Natriuret Pep 2001 pg/mL (0-900) H 09/15/18 22:04 Active Medications - Current Medications Current Medications: Generic Name Dose Route Start Last Admin Trade Name Freq PRN Reason Stop Dose Admin Acetaminophen 650 mg 09/16/18 01:38 Tylenol PO Q4H PRN Fever >101 Acetaminophen/Hydrocodone Bitart 1 each 09/16/18 23:03 09/19/18 08:37 [place] 5/325 PO 1 each BID PRN Administration Pain, Moderate (4-6) Albuterol/Ipratropium 1 ampul 09/16/18 08:00 09/19/18 08:16 Duoneb *Not For Prn Use* IH 1 ampul QIDRT DOMINICK Administration Alprazolam 0.25 mg 09/16/18 23:03 09/19/18 00:18 Xanax PO 0.25 mg Q8H PRN Administration Anxiety Amlodipine Besylate 5 mg 09/18/18 04:00 09/19/18 03:27 Norvasc PO 5 mg DAILY@0400 DOMINICK Administration Baclofen 10 mg 09/17/18 19:00 09/19/18 03:27 Lioresal PO 10 mg 0400,1900 DOMINICK Administration Budesonide 0.5 mg 09/16/18 23:15 09/19/18 08:17 Pulmicort IH 0.5 mg Q12H DOMINICK Administration Buspirone HCl 5 mg 09/17/18 19:00 09/19/18 03:24 Buspar PO 5 mg 0400,1900 DOMINICK Administration Levofloxacin/Dextrose 750 mg in 150 mls @ 100 mls/hr 09/16/18 10:00 09/19/18 09:14 Levaquin 750mg/150ml IV 09/20/18 11:29 100 mls/hr Q24HR DOMINICK Administration Protocol Methylprednisolone Sodium Succinate 60 mg 09/16/18 06:00 09/19/18 06:16 Solu-Medrol IV 60 mg Q8HR DOMINICK Administration Metoprolol Succinate 100 mg 09/18/18 04:00 09/19/18 03:26 Toprol Xl PO 100 mg DAILY@0400 DOMINICK Administration Nitroglycerin 0.4 mg 09/16/18 23:03 Nitrostat SL Q5M PRN Chest Pain Ondansetron HCl 4 mg 09/16/18 01:43 Zofran IV Q8H PRN Nausea And Vomiting Pantoprazole Sodium 40 mg 09/18/18 04:00 09/19/18 03:26 Protonix PO 40 mg DAILY@0400 DOMINICK Administration Venlafaxine HCl 25 mg 09/17/18 19:00 09/19/18 03:25 Effexor PO 25 mg 0400,1200,1900 DOMINICK Administration Venlafaxine HCl 75 mg 09/17/18 19:00 09/19/18 03:25 Effexor PO 75 mg 0400,1200,1900 DOMINICK Administration Nutrition/Malnutrition Assess - Dietary Evaluation Nutrition/Malnutrition Findings: Nutrition Notes Start: 09/17/18 10:56 Freq: Status: Active Protocol: Document 09/17/18 10:56 LP (Rec: 09/17/18 11:00 LP [id number]) 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 Pt was just here not too long ago. Pt denied needing supplement this visit. Nutrition Intervention Revisit per MD consult or patient Sign Off request:
[2018-09-19] MEDS ORDERED: NORCO 5/325 PO ONE (13:00)
--- NOTE | 2018-09-19 14:12 | Progress Note ---
Assessment and Plan Patient alert, awake. Resting on 4 litres o2. O2 saturation 96%. No acute respiratory distress. Patient afebrile. No Leukocytosis. - Patient Problems (1) Acute on chronic respiratory failure with hypoxia and hypercapnia Current Visit: Yes Status: Chronic Plan to address problem: O2 4 litres via nasal canula. Albuterol/atrovent aerosol treatments q 6 hours. Continue I/V solumedrol. Continue Levaquin. Recommend DVT Prophylaxis SCDs Recommend GI prophylaxis. (2) COPD exacerbation Current Visit: Yes Status: Chronic Plan to address problem: O2 4 litres via nasal canula. Albuterol/atrovent aerosol treatments q 6 hours. Continue I/V solumedrol. Continue Levaquin. Recommend DVT Prophylaxis SCDs Recommend GI prophylaxis (3) Acute chest pain Current Visit: No Status: Acute Plan to address problem: Management as per cardiology. (4) CHF exacerbation Current Visit: No Status: Acute Plan to address problem: Management as per cardiology. (5) Tobacco abuse Current Visit: No Status: Chronic Plan to address problem: Counselled to stop smoking. Patient said she stopped smoking last june. Subjective Date of service: 09/19/18 Interval history: Patient alert, awake. Resting on 4 litres o2. O2 saturation 96%. No acute respiratory distress. Patient afebrile. No Leukocytosis. Objective Vital Signs - 12hr 09/19/18 09/19/18 09/19/18 02:11 02:21 02:31 Temperature Pulse Rate 69 66 88 Pulse Rate [ Anterior Bilateral Upper Lobe] Pulse Rate [ From Monitor] Respiratory 16 15 12 Rate Respiratory Rate [Anterior Bilateral Upper Lobe] Blood Pressure 132/55 132/55 132/55 O2 Sat by Pulse 95 96 98 Oximetry 09/19/18 09/19/18 09/19/18 02:41 02:51 03:00 Temperature Pulse Rate 80 69 69 Pulse Rate [ Anterior Bilateral Upper Lobe] Pulse Rate [ From Monitor] Respiratory 13 16 14 Rate Respiratory Rate [Anterior Bilateral Upper Lobe] Blood Pressure 132/55 132/55 146/68 O2 Sat by Pulse 94 95 96 Oximetry 09/19/18 09/19/18 09/19/18 03:03 03:11 03:21 Temperature 98.9 F Pulse Rate 66 69 Pulse Rate [ Anterior Bilateral Upper Lobe] Pulse Rate [ From Monitor] Respiratory 17 15 Rate Respiratory Rate [Anterior Bilateral Upper Lobe] Blood Pressure 146/68 146/68 O2 Sat by Pulse 95 99 Oximetry 09/19/18 09/19/18 09/19/18 03:26 03:27 03:31 Temperature Pulse Rate 68 68 74 Pulse Rate [ Anterior Bilateral Upper Lobe] Pulse Rate [ From Monitor] Respiratory 16 Rate Respiratory Rate [Anterior Bilateral Upper Lobe] Blood Pressure 146/68 146/68 146/68 O2 Sat by Pulse 98 Oximetry 09/19/18 09/19/18 09/19/18 03:41 03:51 04:00 Temperature Pulse Rate 65 75 65 Pulse Rate [ Anterior Bilateral Upper Lobe] Pulse Rate [ 63 From Monitor] Respiratory 19 13 13 Rate Respiratory Rate [Anterior Bilateral Upper Lobe] Blood Pressure 146/68 146/68 124/57 O2 Sat by Pulse 100 100 98 Oximetry 09/19/18 09/19/18 09/19/18 04:11 04:21 04:31 Temperature Pulse Rate 80 58 L 61 Pulse Rate [ Anterior Bilateral Upper Lobe] Pulse Rate [ From Monitor] Respiratory 11 L 15 13 Rate Respiratory Rate [Anterior Bilateral Upper Lobe] Blood Pressure 146/68 146/68 146/68 O2 Sat by Pulse 97 100 100 Oximetry 09/19/18 09/19/18 09/19/18 04:41 04:51 05:00 Temperature Pulse Rate 60 62 64 Pulse Rate [ Anterior Bilateral Upper Lobe] Pulse Rate [ From Monitor] Respiratory 14 18 14 Rate Respiratory Rate [Anterior Bilateral Upper Lobe] Blood Pressure 124/57 124/57 138/63 O2 Sat by Pulse 98 100 99 Oximetry 09/19/18 09/19/18 09/19/18 05:11 05:21 05:31 Temperature Pulse Rate 60 60 60 Pulse Rate [ Anterior Bilateral Upper Lobe] Pulse Rate [ From Monitor] Respiratory 13 15 15 Rate Respiratory Rate [Anterior Bilateral Upper Lobe] Blood Pressure 138/63 138/63 138/63 O2 Sat by Pulse 99 100 100 Oximetry 09/19/18 09/19/18 09/19/18 05:41 05:51 06:01 Temperature Pulse Rate 66 57 L 62 Pulse Rate [ Anterior Bilateral Upper Lobe] Pulse Rate [ From Monitor] Respiratory 11 L 15 13 Rate Respiratory Rate [Anterior Bilateral Upper Lobe] Blood Pressure 138/63 138/63 118/59 O2 Sat by Pulse 97 97 94 Oximetry 09/19/18 09/19/18 09/19/18 06:11 06:21 06:31 Temperature Pulse Rate 56 L 59 L 51 L Pulse Rate [ Anterior Bilateral Upper Lobe] Pulse Rate [ From Monitor] Respiratory 15 16 13 Rate Respiratory Rate [Anterior Bilateral Upper Lobe] Blood Pressure 118/59 118/59 118/59 O2 Sat by Pulse 88 82 L 98 Oximetry 09/19/18 09/19/18 09/19/18 06:41 06:51 07:00 Temperature Pulse Rate 57 L 59 L 56 L Pulse Rate [ Anterior Bilateral Upper Lobe] Pulse Rate [ From Monitor] Respiratory 15 10 L 15 Rate Respiratory Rate [Anterior Bilateral Upper Lobe] Blood Pressure 118/59 118/59 128/48 O2 Sat by Pulse 99 97 95 Oximetry 09/19/18 09/19/18 09/19/18 07:11 07:21 07:31 Temperature Pulse Rate 59 L 59 L 61 Pulse Rate [ Anterior Bilateral Upper Lobe] Pulse Rate [ From Monitor] Respiratory 15 14 12 Rate Respiratory Rate [Anterior Bilateral Upper Lobe] Blood Pressure 128/48 128/48 128/48 O2 Sat by Pulse 94 91 92 Oximetry 09/19/18 09/19/18 09/19/18 07:41 07:51 08:00 Temperature 97.9 F Pulse Rate 55 L 67 56 L Pulse Rate [ Anterior Bilateral Upper Lobe] Pulse Rate [ 54 L From Monitor] Respiratory 15 18 15 Rate Respiratory Rate [Anterior Bilateral Upper Lobe] Blood Pressure 128/48 128/48 134/57 O2 Sat by Pulse 97 96 98 Oximetry 09/19/18 09/19/18 09/19/18 08:11 08:17 08:18 Temperature Pulse Rate 62 Pulse Rate [ 68 Anterior Bilateral Upper Lobe] Pulse Rate [ From Monitor] Respiratory 14 Rate Respiratory 14 Rate [Anterior Bilateral Upper Lobe] Blood Pressure 134/57 O2 Sat by Pulse 98 97 Oximetry 09/19/18 09/19/18 09/19/18 08:21 09:00 10:00 Temperature Pulse Rate 60 65 54 L Pulse Rate [ Anterior Bilateral Upper Lobe] Pulse Rate [ From Monitor] Respiratory 12 17 Rate Respiratory Rate [Anterior Bilateral Upper Lobe] Blood Pressure 134/57 123/55 O2 Sat by Pulse 97 93 Oximetry 09/19/18 09/19/18 09/19/18 10:01 11:00 11:46 Temperature Pulse Rate 75 Pulse Rate [ 75 Anterior Bilateral Upper Lobe] Pulse Rate [ From Monitor] Respiratory Rate Respiratory 18 Rate [Anterior Bilateral Upper Lobe] Blood Pressure 123/55 122/66 O2 Sat by Pulse 96 84 Oximetry CBC and BMP: 09/17/18 04:27 09/17/18 04:27 ABG, PT/INR, D-dimer: ABG POC ABG pH 7.318 (7.35-7.45) L 09/16/18 12:01 POC ABG pCO2 69.0 (35-45) H 09/16/18 12:01 POC ABG pO2 88 (80-105) 09/16/18 12:01 POC ABG HCO3 35.4 (22-26 mml/L) 09/16/18 12:01 POC ABG Total CO2 37 (23-27mmol/L) 09/16/18 12:01 POC ABG O2 Sat 95 09/16/18 12:01 Abnormal lab findings: Abnormal Labs 09/15/18 09/15/18 09/15/18 22:04 22:04 22:04 MCV MCH 23 L RDW 19.7 H Lymph % (Auto) 12.4 L [place] % (Auto) 11.8 H Lymph # 1.1 L [place] # 1.1 H Seg Neutrophils % 75.5 H POC ABG pH POC ABG pCO2 POC ABG pO2 Sodium 146 H Chloride Carbon Dioxide 32 H BUN Creatinine 0.4 L Glucose 106 H CK-MB (CK-2) Rel Index NT-Pro-B Natriuret Pep 2000 H 09/15/18 09/16/18 09/16/18 23:01 05:13 11:57 MCV MCH RDW Lymph % (Auto) [place] % (Auto) Lymph # [place] # Seg Neutrophils % POC ABG pH 7.321 L POC ABG pCO2 63.7 H POC ABG pO2 62 L Sodium Chloride Carbon Dioxide BUN Creatinine Glucose CK-MB (CK-2) Rel Index 9.2 H 6.9 H NT-Pro-B Natriuret Pep 09/16/18 09/17/18 09/17/18 12:01 04:27 04:27 MCV 77 L MCH 23 L RDW 19.9 H Lymph % (Auto) [place] % (Auto) Lymph # [place] # Seg Neutrophils % POC ABG pH 7.318 L POC ABG pCO2 69.0 H POC ABG pO2 Sodium Chloride 95.3 L Carbon Dioxide BUN 19 H Creatinine 0.6 L Glucose 112 H CK-MB (CK-2) Rel Index NT-Pro-B Natriuret Pep Chest x-ray: report reviewed (Reported increased interstitial markings may represent pulmonary vascular congestion.), image reviewed Allied health notes reviewed: RT
[2018-09-19] MEDS: LOVENOX SUB-Q SCH (21:13)
--- NOTE | 2018-09-19 22:15 | Progress Note ---
Assessment and Plan COPD exacerbation Hypoxic respiratory failure Chest pain, atypical an attempted thallium stress test within the past 6 months but this was aborted due to the patient's inability to lay flat from her severe COPD. Coronary artery disease EF 50-55% by echocardiogram 08/2016 Hx of COPD on home oxygen Paroxysmal afib/multifocal atrial tachycardia currently in sinus rhythm not on anticoagulation secondary to melena and anemia. Chronic pain An echocardiogram this admission reports a LVEF 45-50%. Recommendations: Continue medical therapy for coronary artery disease and paroxysmal atrial fibrillation. Otherwise, conservative cardiac management. Subjective Date of service: 09/20/18 Interval history: No acute events. Resting comfortably. No chest pain or SOB. Objective Vital Signs Temp Pulse Pulse Pulse Pulse Resp Resp 09/19/18 21:18 82 21 09/19/18 20:57 09/19/18 20:00 77 19 09/19/18 19:45 98.0 F 86 18 09/19/18 16:25 76 18 09/19/18 15:47 97.8 F 70 20 09/19/18 15:20 09/19/18 14:00 73 15 09/19/18 13:00 85 15 09/19/18 12:00 97.4 F L 76 69 16 09/19/18 11:46 75 09/19/18 11:00 75 09/19/18 10:01 09/19/18 10:00 54 L 09/19/18 09:00 65 17 09/19/18 08:21 60 12 09/19/18 08:18 09/19/18 08:17 68 09/19/18 08:11 62 14 09/19/18 08:00 97.9 F 56 L 54 L 15 09/19/18 07:51 67 18 09/19/18 07:41 55 L 15 09/19/18 07:31 61 12 09/19/18 07:21 59 L 14 09/19/18 07:11 59 L 15 09/19/18 07:00 56 L 15 09/19/18 06:51 59 L 10 L 09/19/18 06:41 57 L 15 09/19/18 06:31 51 L 13 09/19/18 06:21 59 L 16 09/19/18 06:11 56 L 15 09/19/18 06:01 62 13 09/19/18 05:51 57 L 15 09/19/18 05:41 66 11 L 09/19/18 05:31 60 15 09/19/18 05:21 60 15 09/19/18 05:11 60 13 09/19/18 05:00 64 14 09/19/18 04:51 62 18 09/19/18 04:41 60 14 09/19/18 04:31 61 13 09/19/18 04:21 58 L 15 09/19/18 04:11 80 11 L 09/19/18 04:00 65 63 13 09/19/18 03:51 75 13 09/19/18 03:41 65 19 09/19/18 03:31 74 16 09/19/18 03:27 68 09/19/18 03:26 68 09/19/18 03:21 69 15 09/19/18 03:11 66 17 09/19/18 03:03 98.9 F 09/19/18 03:00 69 14 09/19/18 02:51 69 16 09/19/18 02:41 80 13 09/19/18 02:31 88 12 09/19/18 02:21 66 15 09/19/18 02:11 69 16 09/19/18 02:00 61 13 09/19/18 01:51 95 H 14 09/19/18 01:41 74 17 09/19/18 01:31 78 13 09/19/18 01:21 69 16 09/19/18 01:11 69 18 09/19/18 01:01 75 13 09/19/18 00:51 67 16 09/19/18 00:41 67 15 09/19/18 00:31 75 19 09/19/18 00:21 70 17 09/19/18 00:11 69 16 09/19/18 00:01 70 13 09/19/18 00:00 73 14 09/18/18 23:50 82 13 09/18/18 23:41 76 16 09/18/18 23:33 73 16 09/18/18 23:31 78 12 09/18/18 23:21 67 14 09/18/18 23:11 67 10 L 09/18/18 23:05 97.8 F 09/18/18 23:00 66 14 09/18/18 22:56 68 09/18/18 22:51 74 14 09/18/18 22:41 62 16 09/18/18 22:31 66 11 L 09/18/18 22:21 73 14 Resp BP BP Pulse Ox 09/19/18 21:18 09/19/18 20:57 98 09/19/18 20:00 09/19/18 19:45 112/54 95 09/19/18 16:25 09/19/18 15:47 126/54 96 09/19/18 15:20 98 09/19/18 14:00 116/65 94 09/19/18 13:00 128/67 97 09/19/18 12:00 115/56 97 09/19/18 11:46 18 09/19/18 11:00 122/66 84 09/19/18 10:01 123/55 96 09/19/18 10:00 09/19/18 09:00 123/55 93 09/19/18 08:21 134/57 97 09/19/18 08:18 97 09/19/18 08:17 14 09/19/18 08:11 134/57 98 09/19/18 08:00 134/57 98 09/19/18 07:51 128/48 96 09/19/18 07:41 128/48 97 09/19/18 07:31 128/48 92 09/19/18 07:21 128/48 91 09/19/18 07:11 128/48 94 09/19/18 07:00 128/48 95 09/19/18 06:51 118/59 97 09/19/18 06:41 118/59 99 09/19/18 06:31 118/59 98 09/19/18 06:21 118/59 82 L 09/19/18 06:11 118/59 88 09/19/18 06:01 118/59 94 09/19/18 05:51 138/63 97 09/19/18 05:41 138/63 97 09/19/18 05:31 138/63 100 09/19/18 05:21 138/63 100 09/19/18 05:11 138/63 99 09/19/18 05:00 138/63 99 09/19/18 04:51 124/57 100 09/19/18 04:41 124/57 98 09/19/18 04:31 146/68 100 09/19/18 04:21 146/68 100 09/19/18 04:11 146/68 97 09/19/18 04:00 124/57 98 09/19/18 03:51 146/68 100 09/19/18 03:41 146/68 100 09/19/18 03:31 146/68 98 09/19/18 03:27 146/68 09/19/18 03:26 146/68 09/19/18 03:21 146/68 99 09/19/18 03:11 146/68 95 09/19/18 03:03 09/19/18 03:00 146/68 96 09/19/18 02:51 132/55 95 09/19/18 02:41 132/55 94 09/19/18 02:31 132/55 98 09/19/18 02:21 132/55 96 09/19/18 02:11 132/55 95 09/19/18 02:00 132/55 97 09/19/18 01:51 133/56 91 09/19/18 01:41 133/56 96 09/19/18 01:31 133/56 95 09/19/18 01:21 133/56 95 09/19/18 01:11 133/56 95 09/19/18 01:01 133/56 93 09/19/18 00:51 133/56 96 09/19/18 00:41 133/56 97 09/19/18 00:31 133/56 94 09/19/18 00:21 133/56 97 09/19/18 00:11 133/56 95 09/19/18 00:01 133/56 95 09/19/18 00:00 97 09/18/18 23:50 129/55 89 09/18/18 23:41 122/62 97 09/18/18 23:33 122/62 97 09/18/18 23:31 122/62 97 09/18/18 23:21 122/62 97 09/18/18 23:11 122/62 95 09/18/18 23:05 09/18/18 23:00 122/62 96 09/18/18 22:56 11 L 09/18/18 22:51 129/55 97 09/18/18 22:41 129/55 98 09/18/18 22:31 129/55 96 09/18/18 22:21 129/55 95 - Physical Examination General: No Apparent Distress HEENT: Positive: PERRL Neck: Positive: trachea midline Neuro: Positive: Grossly Intact Extremities: Absent: edema - Allied health notes Allied health notes reviewed: RT
[2018-09-20] MEDS: BUSPAR PO SCH ×2 (04:56→18:33)
[2018-09-20] MEDS: PROTONIX PO SCH (04:56)
[2018-09-20] MEDS: EFFEXOR PO SCH ×6 (04:56→18:33)
[2018-09-20] MEDS: NORVASC PO SCH (04:56)
[2018-09-20] MEDS: LIORESAL PO SCH ×2 (04:56→18:33)
[2018-09-20] MEDS: TOPROL XL PO SCH (04:56)
[2018-09-20] MEDS: PULMICORT IH SCH ×4 (05:00→19:47)
[2018-09-20] MEDS: SOLU-Medrol IV SCH ×3 (05:00→21:49)
[2018-09-20] MEDS: DUONEB *Not for PRN Use IH SCH ×4 (07:12→19:47)
[2018-09-20] MEDS: XANAX PO PRN ×2 (09:13→18:33)
[2018-09-20] MEDS: LEVAQUIN 750MG/150ML 750 MG/150 ML BAG IV SCH (09:13)
[2018-09-20] MEDS: NORCO 5/325 PO PRN ×2 (09:13→20:17)
[2018-09-20] MEDS: HABITROL TD SCH (09:13)
--- NOTE | 2018-09-20 09:16 | Progress Note ---
Assessment and Plan Assessment and plan: Acute on chronic respiratory failure was on BIPAP in ED now off BIPAP Now on Oxygen by NC Still wheezing, less wheezing Still has shortness of breath but improved Chest pain, atypical cardiology following Coronary artery disease On Metoprolol Cardiology Paroxysmal atrial fibrillation Not on anticoagulation because of melena GERD Anxiety and Depression Full code status Patient still shortness of breath, not stable for discharge. Possible discharge tomorrow. History Interval history: Less shortness of breath Chest pain atypical Hospitalist Physical - Physical exam Narrative exam: Gen: Not in acute distress, sitting up in bed, HEENT: Normocephalic, atraumatic Neck: supple, no JVD Heart: S1 and S2 reg, no murmurs, rubs or gallop Lungs: Bilateral rhonchi, wheeze Abd: soft, non tender, non distended, normal BS, Ext: No edema, no clubbing, no cyanosis Neuro: Awake,alert, Oriented X 3. No focal neuro signs Psych: normal mood - Constitutional Vitals: Temp Pulse Resp BP Pulse Ox 98.0 F 73 21 112/54 98 09/19/18 19:45 09/19/18 22:00 09/19/18 21:18 09/19/18 19:45 09/19/18 20:57 Results - Labs CBC & Chem 7: 09/17/18 04:27 09/17/18 04:27 Labs: Laboratory Last Values WBC 11.0 K/mm3 (4.5-11.0) 09/17/18 04:27 RBC 4.86 M/mm3 (3.65-5.03) 09/17/18 04:27 Hgb 11.1 gm/dl (10.1-14.3) 09/17/18 04:27 Hct 37.3 % (30.3-42.9) 09/17/18 04:27 MCV 77 fl (79-97) L 09/17/18 04:27 MCH 23 pg (28-32) L 09/17/18 04:27 MCHC 30 % (30-34) 09/17/18 04:27 RDW 19.9 % (13.2-15.2) H 09/17/18 04:27 Plt Count 202 K/mm3 (140-440) 09/17/18 04:27 Lymph % (Auto) 12.4 % (13.4-35.0) L 09/15/18 22:04 [place] % (Auto) 11.8 % (0.0-7.3) H 09/15/18 22:04 E[place] % (Auto) 0.0 % (0.0-4.3) 09/15/18 22:04 Baso % (Auto) 0.3 % (0.0-1.8) 09/15/18 22:04 Lymph # 1.1 K/mm3 (1.2-5.4) L 09/15/18 22:04 [place] # 1.1 K/mm3 (0.0-0.8) H 09/15/18 22:04 Eos # 0.0 K/mm3 (0.0-0.4) 09/15/18 22:04 Baso # 0.0 K/mm3 (0.0-0.1) 09/15/18 22:04 Seg Neutrophils % 75.5 % (40.0-70.0) H 09/15/18 22:04 Seg Neutrophils # 6.9 K/mm3 (1.8-7.7) 09/15/18 22:04 POC ABG pH 7.318 (7.35-7.45) L 09/16/18 12:01 POC ABG pCO2 69.0 (35-45) H 09/16/18 12:01 POC ABG pO2 88 (80-105) 09/16/18 12:01 POC ABG HCO3 35.4 (22-26 mml/L) 09/16/18 12:01 POC ABG Total CO2 37 (23-27mmol/L) 09/16/18 12:01 POC ABG O2 Sat 95 09/16/18 12:01 POC ABG Base Excess 9 ((-2) - (+3)mmol/L) 09/16/18 12:01 35 % 09/16/18 12:01 Sodium 138 mmol/L (137-145) D 09/17/18 04:27 Potassium 4.4 mmol/L (3.6-5.0) 09/17/18 04:27 Chloride 95.3 mmol/L (98-107) L 09/17/18 04:27 Carbon Dioxide 29 mmol/L (22-30) 09/17/18 04:27 18 mmol/L 09/17/18 04:27 BUN 19 mg/dL (7-17) H 09/17/18 04:27 0.6 mg/dL (0.7-1.2) L 09/17/18 04:27 Estimated GFR > 60 ml/min 09/17/18 04:27 32 % 09/17/18 04:27 Glucose 112 mg/dL (65-100) H 09/17/18 04:27 Calcium 9.2 mg/dL (8.4-10.2) 09/17/18 04:27 42 units/L (30-135) 09/16/18 11:57 CK-MB (CK-2) 2.9 ng/mL (0.0-4.0) 09/16/18 11:57 CK-MB (CK-2) Rel Index 6.9 (0-4) H 09/16/18 11:57 < 0.010 ng/mL (0.00-0.029) 09/16/18 11:57 NT-Pro-B Natriuret Pep 2001 pg/mL (0-900) H 09/15/18 22:04 Active Medications - Current Medications Current Medications: Generic Name Dose Route Start Last Admin Trade Name Freq PRN Reason Stop Dose Admin Acetaminophen 650 mg 09/16/18 01:38 Tylenol PO Q4H PRN Fever >101 Acetaminophen/Hydrocodone Bitart 1 each 09/16/18 23:03 09/20/18 09:13 [place] 5/325 PO 1 each BID PRN Administration Pain, Moderate (4-6) Albuterol/Ipratropium 1 ampul 09/16/18 08:00 09/20/18 07:12 Duoneb *Not For Prn Use* IH 1 ampul QIDRT DOMINICK Administration Alprazolam 0.25 mg 09/16/18 23:03 09/20/18 09:13 Xanax PO 0.25 mg Q8H PRN Administration Anxiety Amlodipine Besylate 5 mg 09/18/18 04:00 09/20/18 04:56 Norvasc PO 5 mg DAILY@0400 DOMINICK Administration Baclofen 10 mg 09/17/18 19:00 09/20/18 04:56 Lioresal PO 10 mg 0400,1900 DOMINICK Administration Budesonide 0.5 mg 09/16/18 23:15 09/20/18 07:14 Pulmicort IH 0.5 mg Q12H DOMINICK Administration Buspirone HCl 5 mg 09/17/18 19:00 09/20/18 04:56 Buspar PO 5 mg 0400,1900 DOMINICK Administration Enoxaparin Sodium 40 mg 09/19/18 22:00 09/19/18 21:13 Lovenox SUB-Q 40 mg QDAY@2200 DOMINICK Administration Levofloxacin/Dextrose 750 mg in 150 mls @ 100 mls/hr 09/16/18 10:00 09/20/18 09:13 Levaquin 750mg/150ml IV 09/20/18 11:29 100 mls/hr Q24HR DOMINICK Administration Protocol Methylprednisolone Sodium Succinate 60 mg 09/16/18 06:00 09/20/18 05:00 Solu-Medrol IV 60 mg Q8HR DOMINICK Administration Metoprolol Succinate 100 mg 09/18/18 04:00 09/20/18 04:56 Toprol Xl PO 100 mg DAILY@0400 DOMINICK Administration Nicotine 21 mg 09/20/18 10:00 09/20/18 09:13 Habitrol TD 21 mg QDAY DOMINICK Administration Nitroglycerin 0.4 mg 09/16/18 23:03 Nitrostat SL Q5M PRN Chest Pain Ondansetron HCl 4 mg 09/16/18 01:43 Zofran IV Q8H PRN Nausea And Vomiting Pantoprazole Sodium 40 mg 09/18/18 04:00 09/20/18 04:56 Protonix PO 40 mg DAILY@0400 DOMINICK Administration Venlafaxine HCl 25 mg 09/17/18 19:00 09/20/18 04:56 Effexor PO 25 mg 0400,1200,1900 DOMINICK Administration Venlafaxine HCl 75 mg 09/17/18 19:00 09/20/18 04:56 Effexor PO 75 mg 0400,1200,1900 [facility] Administration Nutrition/Malnutrition Assess - Dietary Evaluation Nutrition/Malnutrition Findings: Nutrition Notes Start: 09/17/18 10:56 Freq: Status: Active Protocol: Document 09/17/18 10:56 LP (Rec: 09/17/18 11:00 LP [id number]) Nutrition Notes Need for Assessment generated from: post closing specialist Initial or Follow up Brief 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 Pt eating well [employer] and now. Pt was just here not too long ago. Pt denied needing supplement this visit. Nutrition Intervention Revisit per MD consult or patient Sign Off request:
--- NOTE | 2018-09-20 13:23 | Progress Note ---
Assessment and Plan Patient alert, awake. Resting on 3 litres o2. O2 saturation 97%. No acute respiratory distress. Patient afebrile. No Leukocytosis. - Patient Problems (1) Acute on chronic respiratory failure with hypoxia and hypercapnia Current Visit: Yes Status: Chronic Plan to address problem: O2 3 litres via nasal canula. Albuterol/atrovent aerosol treatments q 6 hours. Continue I/V solumedrol. Continue Levaquin. Recommend DVT Prophylaxis SCDs Recommend GI prophylaxis. (2) COPD exacerbation Current Visit: Yes Status: Chronic Plan to address problem: O2 3 litres via nasal canula. Albuterol/atrovent aerosol treatments q 6 hours. Continue I/V solumedrol. Continue Levaquin. Recommend DVT Prophylaxis SCDs Recommend GI prophylaxis (3) Acute chest pain Current Visit: No Status: Acute Plan to address problem: Management as per cardiology. (4) CHF exacerbation Current Visit: No Status: Acute Plan to address problem: Management as per cardiology. (5) Tobacco abuse Current Visit: No Status: Chronic Plan to address problem: Counselled to stop smoking. Patient said she stopped smoking last june. Subjective Date of service: 09/20/18 Interval history: Patient alert, awake. Resting on 3 litres o2. O2 saturation 97%. No acute respiratory distress. Patient afebrile. No Leukocytosis. Objective Vital Signs - 12hr 09/20/18 09/20/18 09/20/18 04:25 04:30 07:14 Temperature 98.3 F 98.5 F Pulse Rate 76 90 Pulse Rate [ 69 Anterior Bilateral Throughout] Respiratory 18 18 Rate Respiratory 20 Rate [Anterior Bilateral Throughout] Blood Pressure 139/49 150/88 O2 Sat by Pulse 96 95 97 Oximetry 09/20/18 07:57 Temperature 97.9 F Pulse Rate Pulse Rate [ Anterior Bilateral Throughout] Respiratory 18 Rate Respiratory Rate [Anterior Bilateral Throughout] Blood Pressure 139/63 O2 Sat by Pulse Oximetry Constitutional: no acute distress, asleep Eyes: non-icteric Neck: supple, no lymphadenopathy Ascultation: Bilateral: diminished breath sounds Cardiovascular: regular rate and rhythm Gastrointestinal: normoactive bowel sounds, soft Integumentary: normal Extremities: no cyanosis, no edema Neurologic: other (Patient sleeping at this time.) Psychiatric: other (Patient sleeping at this time.) CBC and BMP: 09/17/18 04:27 09/17/18 04:27 ABG, PT/INR, D-dimer: ABG POC ABG pH 7.318 (7.35-7.45) L 09/16/18 12:01 POC ABG pCO2 69.0 (35-45) H 09/16/18 12:01 POC ABG pO2 88 (80-105) 09/16/18 12:01 POC ABG HCO3 35.4 (22-26 mml/L) 09/16/18 12:01 POC ABG Total CO2 37 (23-27mmol/L) 09/16/18 12:01 POC ABG O2 Sat 95 09/16/18 12:01 Abnormal lab findings: Abnormal Labs 09/15/18 09/15/18 09/15/18 22:04 22:04 22:04 MCV MCH 23 L RDW 19.7 H Lymph % (Auto) 12.4 L [place] % (Auto) 11.8 H Lymph # 1.1 L [place] # 1.1 H Seg Neutrophils % 75.5 H POC ABG pH POC ABG pCO2 POC ABG pO2 Sodium 146 H Chloride Carbon Dioxide 32 H BUN Creatinine 0.4 L Glucose 106 H CK-MB (CK-2) Rel Index NT-Pro-B Natriuret Pep 2000 H 09/15/18 09/16/18 09/16/18 23:01 05:13 11:57 MCV MCH RDW Lymph % (Auto) [place] % (Auto) Lymph # [place] # Seg Neutrophils % POC ABG pH 7.321 L POC ABG pCO2 63.7 H POC ABG pO2 62 L Sodium Chloride Carbon Dioxide BUN Creatinine Glucose CK-MB (CK-2) Rel Index 9.2 H 6.9 H NT-Pro-B Natriuret Pep 09/16/18 09/17/18 09/17/18 12:01 04:27 04:27 MCV 77 L MCH 23 L RDW 19.9 H Lymph % (Auto) [place] % (Auto) Lymph # [place] # Seg Neutrophils % POC ABG pH 7.318 L POC ABG pCO2 69.0 H POC ABG pO2 Sodium Chloride 95.3 L Carbon Dioxide BUN 19 H Creatinine 0.6 L Glucose 112 H CK-MB (CK-2) Rel Index NT-Pro-B Natriuret Pep Allied health notes reviewed: RT
[2018-09-20] MEDS: LOVENOX SUB-Q SCH (21:49)
[2018-09-21] MEDS ORDERED: TORADOL IV ONE (00:02)
[2018-09-21] MEDS: NORCO 5/325 PO PRN ×2 (04:14→13:33)
[2018-09-21] MEDS: XANAX PO PRN (04:14)
[2018-09-21] MEDS: TOPROL XL PO SCH (04:14)
[2018-09-21] MEDS: LIORESAL PO SCH (04:14)
[2018-09-21] MEDS: PROTONIX PO SCH (04:15)
[2018-09-21] MEDS: NORVASC PO SCH (04:15)
[2018-09-21] MEDS: EFFEXOR PO SCH ×4 (04:16→11:42)
[2018-09-21] MEDS: BUSPAR PO SCH (04:17)
[2018-09-21] MEDS: SOLU-Medrol IV SCH ×3 (04:18→15:40)
[2018-09-21] MEDS: DUONEB *Not for PRN Use IH SCH ×3 (07:16→17:42)
[2018-09-21] MEDS: PULMICORT IH SCH ×2 (07:17→11:15)
[2018-09-21] MEDS: HABITROL TD SCH (10:24)
--- NOTE | 2018-09-21 11:18 | Progress Note ---
Assessment and Plan COPD exacerbation Hypoxic respiratory failure Chest pain, atypical an attempted thallium stress test within the past 6 months but this was aborted due to the patient's inability to lay flat from her severe COPD. Coronary artery disease EF 50-55% by echocardiogram 08/2016 Hx of COPD on home oxygen Paroxysmal afib/multifocal atrial tachycardia currently in sinus rhythm not on anticoagulation secondary to melena and anemia. Chronic pain An echocardiogram this admission reports a LVEF 45-50%. Recommendations: Continue medical therapy for coronary artery disease and paroxysmal atrial fibrillation. Otherwise, conservative cardiac management. Subjective Date of service: 09/21/18 Interval history: Patient is resting in bed comfortably. No cardiac events reported overnight. Objective Vital Signs Temp Pulse Pulse Pulse Resp Resp Resp 09/21/18 09:10 63 09/21/18 07:44 97.4 F L 63 18 09/21/18 07:16 63 20 09/21/18 05:11 98.0 F 79 18 09/21/18 04:32 85 09/21/18 04:15 85 09/21/18 04:14 85 22 09/20/18 23:32 98.0 F 85 18 09/20/18 22:53 20 09/20/18 21:00 20 09/20/18 20:17 22 09/20/18 20:06 96 H 21 09/20/18 19:50 09/20/18 19:49 90 18 09/20/18 19:20 97.1 F L 80 20 09/20/18 19:00 20 09/20/18 16:40 98.7 F 18 09/20/18 16:21 85 20 09/20/18 12:07 75 20 BP Pulse Ox 09/21/18 09:10 09/21/18 07:44 136/59 84 09/21/18 07:16 94 09/21/18 05:11 157/79 84 09/21/18 04:32 09/21/18 04:15 127/57 09/21/18 04:14 127/57 09/20/18 23:32 127/57 94 09/20/18 22:53 09/20/18 21:00 09/20/18 20:17 09/20/18 20:06 09/20/18 19:50 99 09/20/18 19:49 09/20/18 19:20 141/71 97 09/20/18 19:00 09/20/18 16:40 144/63 09/20/18 16:21 09/20/18 12:07 - Physical Examination General: No Apparent Distress HEENT: Positive: PERRL Neck: Positive: trachea midline Cardiac: Positive: Reg Rate and Rhythm Lungs: Positive: Decreased Breath Sounds, Rhonchi Neuro: Positive: Grossly Intact Extremities: Absent: edema - Allied health notes Allied health notes reviewed: RT
--- NOTE | 2018-09-21 12:53 | Discharge Summary ---
Providers - Providers Date of Admission: 09/16/18 01:17 Date of discharge: 09/21/18 Attending physician: MATTEO GARCIA 09/16/18 07:35 Consult to Physician [CONS] Routine Comment: aware and called back Consulting Provider: PARESH GAINES Physician Instructions: Reason For Exam: COPD exacerbation 09/16/18 07:37 Consult to Physician [CONS] Routine Comment: md saw patient Consulting Provider: JENNA MATTHEWS Physician Instructions: Reason For Exam: Shortness of breath Primary care physician: FLORESITA BHATTI Hospitalization Condition: Fair Disposition: [id number]/TX-06 HOME UNDER HOME [facility] Core Measure Documentation - Palliative Care Palliative Care/ Comfort Measures: Not Applicable - Core Measures Any of the following diagnoses?: none Exam - Constitutional Vitals: Temp Pulse Resp BP Pulse Ox 97.4 F L 86 20 126/65 95 09/21/18 07:44 09/21/18 11:48 09/21/18 11:15 09/21/18 11:48 09/21/18 11:48 Plan Activity: advance as tolerated Diet: low fat, low cholesterol, low salt Special Instructions: home oxygen via Additional Instructions: 1.Follow up with PCP in 1 week. 2.Follow up with Dr. Bhatti in 3-5 days. 3.Contionue home Oxygen at 3l/min Follow up with: FLORESITA BHATTI MD [Primary Care Provider] - 3-5 Days Prescriptions: Ipratropium/Albuterol Sulfate [DUONEB *Not for PRN Use*] 1 ampul IH BID 30 Days ampul.neb Prednisone [predniSONE 10 mg (6-Day Pack, 21 Tabs)] 10 mg PO .TAPER #1 tab.ds.pk Albuterol Sulfate [Proair Respiclick] 90 mcg IH Q4H PRN #1 pump PRN Reason: Shortness Of Breath
--- NOTE | 2018-09-21 13:01 | Progress Note ---
Assessment and Plan Patient alert, awake. Resting on 3 litres o2. O2 saturation 95%. No acute respiratory distress. Patient afebrile. No Leukocytosis. - Patient Problems (1) Acute on chronic respiratory failure with hypoxia and hypercapnia Current Visit: Yes Status: Chronic Plan to address problem: O2 3 litres via nasal canula. Albuterol/atrovent aerosol treatments q 6 hours. Continue I/V solumedrol. Continue Levaquin. Recommend DVT Prophylaxis SCDs Recommend GI prophylaxis. (2) COPD exacerbation Current Visit: Yes Status: Chronic Plan to address problem: O2 3 litres via nasal canula. Albuterol/atrovent aerosol treatments q 6 hours. Continue I/V solumedrol. Continue Levaquin. Recommend DVT Prophylaxis SCDs Recommend GI prophylaxis (3) Acute chest pain Current Visit: No Status: Acute Plan to address problem: Management as per cardiology. (4) CHF exacerbation Current Visit: No Status: Acute Plan to address problem: Management as per cardiology. (5) Tobacco abuse Current Visit: No Status: Chronic Plan to address problem: Counselled to stop smoking. Patient said she stopped smoking last june. Subjective Date of service: 09/21/18 Interval history: Patient alert, awake. Resting on 3 litres o2. O2 saturation 95%. No acute respiratory distress. Patient afebrile. No Leukocytosis. Objective Vital Signs - 12hr 09/21/18 09/21/18 09/21/18 04:14 04:15 04:32 Temperature Pulse Rate 85 85 85 Pulse Rate [ Anterior Bilateral Throughout] Pulse Rate [ From Monitor] Respiratory 22 Rate Respiratory Rate [Anterior Bilateral Throughout] Blood Pressure 127/57 127/57 O2 Sat by Pulse Oximetry 09/21/18 09/21/18 09/21/18 05:11 07:16 07:44 Temperature 98.0 F 97.4 F L Pulse Rate 79 63 Pulse Rate [ 63 Anterior Bilateral Throughout] Pulse Rate [ From Monitor] Respiratory 18 18 Rate Respiratory 20 Rate [Anterior Bilateral Throughout] Blood Pressure 157/79 136/59 O2 Sat by Pulse 84 94 84 Oximetry 09/21/18 09/21/18 09/21/18 09:10 11:15 11:48 Temperature Pulse Rate 86 Pulse Rate [ 85 Anterior Bilateral Throughout] Pulse Rate [ 63 From Monitor] Respiratory Rate Respiratory 20 Rate [Anterior Bilateral Throughout] Blood Pressure 126/65 O2 Sat by Pulse 95 Oximetry Constitutional: no acute distress, alert Eyes: non-icteric Neck: supple, no lymphadenopathy Ascultation: Bilateral: diminished breath sounds Cardiovascular: regular rate and rhythm Gastrointestinal: normoactive bowel sounds, soft Integumentary: normal Extremities: no cyanosis, no edema Neurologic: other (Patient sleeping at this time.) Psychiatric: other (Patient sleeping at this time.) CBC and BMP: 09/17/18 04:27 09/17/18 04:27 ABG, PT/INR, D-dimer: ABG POC ABG pH 7.318 (7.35-7.45) L 09/16/18 12:01 POC ABG pCO2 69.0 (35-45) H 09/16/18 12:01 POC ABG pO2 88 (80-105) 09/16/18 12:01 POC ABG HCO3 35.4 (22-26 mml/L) 09/16/18 12:01 POC ABG Total CO2 37 (23-27mmol/L) 09/16/18 12:01 POC ABG O2 Sat 95 09/16/18 12:01 Abnormal lab findings: Abnormal Labs 09/15/18 09/15/18 09/15/18 22:04 22:04 22:04 MCV MCH 23 L RDW 19.7 H Lymph % (Auto) 12.4 L [place] % (Auto) 11.8 H Lymph # 1.1 L [place] # 1.1 H Seg Neutrophils % 75.5 H POC ABG pH POC ABG pCO2 POC ABG pO2 Sodium 146 H Chloride Carbon Dioxide 32 H BUN Creatinine 0.4 L Glucose 106 H CK-MB (CK-2) Rel Index NT-Pro-B Natriuret Pep 2000 H 09/15/18 09/16/18 09/16/18 23:01 05:13 11:57 MCV MCH RDW Lymph % (Auto) [place] % (Auto) Lymph # [place] # Seg Neutrophils % POC ABG pH 7.321 L POC ABG pCO2 63.7 H POC ABG pO2 62 L Sodium Chloride Carbon Dioxide BUN Creatinine Glucose CK-MB (CK-2) Rel Index 9.2 H 6.9 H NT-Pro-B Natriuret Pep 09/16/18 09/17/18 09/17/18 12:01 04:27 04:27 MCV 77 L MCH 23 L RDW 19.9 H Lymph % (Auto) [place] % (Auto) Lymph # [place] # Seg Neutrophils % POC ABG pH 7.318 L POC ABG pCO2 69.0 H POC ABG pO2 Sodium Chloride 95.3 L Carbon Dioxide BUN 19 H Creatinine 0.6 L Glucose 112 H CK-MB (CK-2) Rel Index NT-Pro-B Natriuret Pep Allied health notes reviewed: RT
[2018-09-21 13:45] VITALS: BP 133/61
== END 2018-09-21 16:01 | disposition home or self-care (01) | DRG 189 ==
LOC: ED 21:54 → IMCU 09-16 01:17 → 4A 09-19 14:59
PROVIDERS: ADMIT Internal Medicine; ATTEND Internal Medicine
PROC: 4A033R1 Measurement of Arterial Saturation, Peripheral, Percutaneous Approach (ICD-10-PCS; principal; 2018-09-15)
PROC: 5A09357 Assistance with Respiratory Ventilation, Less than 24 Consecutive Hours, Continuous Positive Airway Pressure (ICD-10-PCS; 2018-09-15)
PROC: 5A09357 Assistance with Respiratory Ventilation, Less than 24 Consecutive Hours, Continuous Positive Airway Pressure (ICD-10-PCS; 2018-09-16)
DX: J96.22 Acute and chronic respiratory failure with hypercapnia (principal); J44.1 Chronic obstructive pulmonary disease with (acute) exacerbation; I11.0 Hypertensive heart disease with heart failure; J96.21 Acute and chronic respiratory failure with hypoxia; I50.9 Heart failure, unspecified; R07.89 Other chest pain; K21.9 Gastro-esophageal reflux disease without esophagitis; F41.9 Anxiety disorder, unspecified; F32.9 Major depressive disorder, single episode, unspecified; I25.10 Atherosclerotic heart disease of native coronary artery without angina pectoris; I48.0 Paroxysmal atrial fibrillation; G89.29 Other chronic pain; Z87.891 Personal history of nicotine dependence; I25.2 Old myocardial infarction; Z88.5 Allergy status to narcotic agent; Z88.8 Allergy status to other drugs, medicaments and biological substances; Z99.81 Dependence on supplemental oxygen; Z79.01 Long term (current) use of anticoagulants; Z95.5 Presence of coronary angioplasty implant and graft; Z71.6 Tobacco abuse counseling
CPT/HCPCS: 36415; 36600; 71045; 80048; 82550; 82553; 82803; 83880; 84484; 85025; 85027; 93005; 93010; 93306; 94640; 94644; 94760; 96365; 96375; G0378; J1650; J1885; J1940; J1956; J2060; J2270; J2930

== ENCOUNTER 2018-09-28 21:07 | Inpatient (IN) | payer MEDICARE ==
[2018-09-28] MEDS ORDERED: SOLU-Medrol IV ONE (22:23)
[2018-09-28] MEDS ORDERED: PROVENTIL IH ONE ×2 (22:23→22:34)
[2018-09-28] MEDS ORDERED: ATROVENT IH ONE ×3 (22:23→22:35)
[2018-09-28] MEDS ORDERED: SOLU-Medrol ONE (22:30)
--- NOTE | 2018-09-28 22:42 | Emergency Department Report ---
HPI - General Chief Complaint: Dyspnea/Respdistress Time Seen by Provider: 09/28/18 22:11 - HPI HPI: 58-year-old female presents to the emergency department via EMS from home with complaint of some shortness of breath that started earlier today. She has a history of COPD for which she is oxygen dependent on 3-4 L. She also has a history of GERD, coronary artery disease, hypertension, depression, anxiety and some questionable history of CHF. Patient is a former smoker, 45 pack years, having just quit last June. The patient was admitted here 2 weeks ago and discharged 1 week ago for similar symptoms. Her primary care physician is Dr. Jordan norman. Patient says that she used her home inhalers and nebulizers without any relief ED Past Medical Hx - Past Medical History Previous Medical History?: Yes Hx Hypertension: Yes Hx Heart Attack/AMI: Yes Hx Congestive Heart Failure: No (patient denies) Hx Diabetes: No Hx Deep Vein Thrombosis: No Hx GERD: Yes Hx Liver Disease: Yes Hx Psychiatric Treatment: Yes (depression and anxiety) Hx Asthma: No Hx COPD: Yes Hx HIV: No - Surgical History Hx Coronary Stent: Yes (2016) Hx Pacemaker: No Hx Internal Defibrillator: No Hx Appendectomy: Yes Additional Surgical History: heart stents, Back surgery - Social History Smoking Status: Current Every Day Smoker Substance Use Type: None - Medications Home Medications: Home Medications Medication Instructions Recorded Confirmed Last Taken Type ALPRAZolam [Xanax TAB] 0.25 mg PO Q8H PRN #15 tablet 06/19/18 09/28/18 Unknown Rx Baclofen [Lioresal] 10 mg PO BID #60 tab 06/19/18 09/28/18 Unknown Rx busPIRone [Buspar] 5 mg PO BID #60 tab 06/19/18 09/28/18 Unknown Rx Pantoprazole [Protonix TAB] 40 mg PO QDAY #30 tab 08/19/18 09/28/18 Unknown Rx Amlodipine Besylate [Norvasc] 5 mg PO DAILY 09/16/18 09/28/18 Unknown History Budesonide [Pulmicort Respules] 0.5 mg IH Q12H 09/16/18 09/28/18 Unknown History HYDROcodone/APAP 5-325 [[place] 1 each PO BID PRN 09/16/18 09/28/18 Unknown History 5-325 mg TAB] Metoprolol Xl [Metoprolol 100 mg PO QDAY 09/16/18 09/28/18 Unknown History SUCCINATE ER TAB] Nitroglycerin [Nitrostat] 0.4 mg SL Q5M PRN 09/16/18 09/28/18 Unknown History Venlafaxine HCl [Venlafaxine] 100 mg PO TID 09/16/18 09/28/18 Unknown History Albuterol Sulfate [Proair 90 mcg IH Q4H PRN #1 pump 09/21/18 09/28/18 Unknown Rx Respiclick] Ipratropium/Albuterol Sulfate 1 ampul IH BID 30 Days ampul.neb 09/21/18 Unknown Rx [DUONEB *Not for PRN Use*] Prednisone [predniSONE 10 mg 10 mg PO .TAPER #1 tab.ds.pk 09/21/18 09/28/18 Unknown Rx (6-Day Pack, 21 Tabs)] ED Review of Systems ROS: Stated complaint: KAYA Other details as noted in HPI Comment: All other systems reviewed and negative Constitutional: denies: chills, fever Eyes: denies: eye pain, vision change ENT: denies: ear pain, throat pain Respiratory: cough, shortness of breath, wheezing Cardiovascular: denies: chest pain, palpitations Gastrointestinal: denies: abdominal pain, vomiting Genitourinary: denies: dysuria, frequency Musculoskeletal: denies: back pain, arthralgia Skin: denies: rash, lesions Neurological: denies: headache, weakness Physical Exam - Physical Exam Vital Signs: Vital Signs 09/28/18 09/28/18 21:25 21:32 Temperature 98.4 F Pulse Rate 74 Respiratory 19 19 Rate Blood Pressure 94/47 [Right] O2 Sat by Pulse 92 92 Oximetry Physical Exam: GENERAL: The patient is well-developed well-nourished. HENT: Normocephalic. Atraumatic. Patient has moist mucous membranes. EYES: Extraocular motions are intact. NECK: Supple. Trachea is midline. CHEST/LUNGS: Decreased breath sounds. Mild wheezing heard. There is tachypnea, accessory muscle use and conversational dyspnea. There is respiratory distress noted. HEART/CARDIOVASCULAR: Regular. There is no tachycardia. There is no murmur. ABDOMEN: Abdomen is soft, nontender. Patient has normal bowel sounds. There is no abdominal distention. SKIN: Skin is warm and dry. NEURO: The patient is awake, alert, and oriented. The patient has no focal neurologic deficits. The patient has normal speech. MUSCULOSKELETAL: There is no tenderness or deformity. There is no evidence of acute injury. ED Course Vital Signs 09/28/18 09/28/18 21:25 21:32 Temperature 98.4 F Pulse Rate 74 Respiratory 19 19 Rate Blood Pressure 94/47 [Right] O2 Sat by Pulse 92 92 Oximetry - ABG Interpretation Ph: 7.319 PCO2: 56 PO2: 65 Bicarbonate: 29 Interpretation: respiratory acidosis ED Medical Decision Making - Lab Data Result diagrams: 09/28/18 22:42 09/28/18 22:42 - EKG Data -: EKG Interpreted by Me EKG shows normal: sinus rhythm, axis, intervals, QRS complexes (LVH, q wavs to inferior leads) Rate: normal - EKG Data When compared to previous EKG there are: no significant change Interpretation: unchanged when compared t (09/17/18) - Radiology Data Radiology results: image reviewed interpreted by me: Chest x-ray shows some hyperinflation of the lungs and flattening of the diaphragms. No pneumonia, pneumothorax, pleural effusions or focal consolidation. - Medical Decision Making This patient presents to the emergency department with a complaint of shortness of breath. The patient has some type of issue with keeping her oxygen on. When the nasal cannula comes off or if she is mouth breathing, her oxygen will drop into the 70s and she appears to start having some respiratory distress. Myself, as well as the ER nurse and techs, are constantly going into the room to repla ce her oxygen which she continues to say is happening by accident. She did keep a mask on long enough for her breathing treatments but she would not allow a Venturi mask to be placed. The patient would benefit from BiPAP but she refuses to allow this to be done and at this point the patient is awake and oriented enough to refuse. Chest x-ray does not show any pleural effusions, pneumothorax, focal consolidation or pneumonia. Patient's ABG appears consistent with hypercapnia, hypoxemia and some mild respiratory acidosis. She was given some steroids and breathing treatments. Her labs show a mild leukocytosis, as well as some mildly elevated proBNP. The patient will be admitted to the hospital for further evaluation and treatment and was accepted for admission by the hospitalist, Dr. Pierce. - Differential Diagnosis COPD, Pneumoniam, CHF, Dysrythmia Critical Care Time: Yes Critical care time in (mins) excluding proc time.: 35 Critical care attestation.: If time is entered above; I have spent that time in minutes in the direct care of this critically ill patient, excluding procedure time. Critical care time was spent on this patient and during her initial evaluation, multiple re- evaluations, ordering and interpretation of labs and imaging, discussions with the respiratory therapist, and discussion with the hospitalist service. Critical Care Time: 35 minutes ED Disposition Clinical Impression: COPD exacerbation, Acute exacerbation of chronic obstructive pulmonary disease (COPD), Hypoxia, Hypercapnia, Acute on chronic respiratory failure with hypoxia and hypercapnia Disposition: 09 OP ADMIT IP TO THIS HOSP Is pt being admited?: Yes Condition: Serious
[2018-09-28 23:34] LABS: Basophils # (Auto) 0.1 K/mm3 (0.0-0.1); Basophils % (Auto) 0.3 % (0.0-1.8); Eosinophils # (Auto) 0.2 K/mm3 (0.0-0.4); Eosinophils % (Auto) 1.1 % (0.0-4.3); Lymphocytes # (Auto) 2.4 K/mm3 (1.2-5.4); Lymphocytes % (Auto) 14.8 % (13.4-35.0); Mean Corpuscular HGB Conc 30 % (30-34); Mean Corpuscular Volume 78 fl (79-97); Monocytes # (Auto) 1.8 K/mm3 (0.0-0.8); Monocytes % (Auto) 10.8 % (0.0-7.3); Platelet Count 264 K/mm3 (140-440); Red Blood Count 4.94 M/mm3 (3.65-5.03); Red Cell Distribution Width 19.8 % (13.2-15.2)
[2018-09-28 23:35] LABS: Hematocrit 38.5 % (30.3-42.9); Hemoglobin 11.5 gm/dl (10.1-14.3)
[2018-09-28 23:46] LABS: Partial Thromboplastin Time 29.2 Sec. (24.2-36.6)
[2018-09-28 23:47] LABS: BUN/Creatinine Ratio 32; Blood Urea Nitrogen 16 mg/dL (7-17); Calcium 8.9 mg/dL (8.4-10.2); Hemolysis Index 3
[2018-09-29] MEDS ORDERED: SODIUM CHLORIDE FLUSH SYRINGE 10 ML IV PRN (02:01)
[2018-09-29] MEDS ORDERED: PROVENTIL IH PRN (02:01)
[2018-09-29] MEDS ORDERED: ZOFRAN IV PRN (02:01)
[2018-09-29] MEDS ORDERED: TYLENOL PO PRN (02:01)
[2018-09-29] MEDS ORDERED: XANAX PO PRN (02:04)
[2018-09-29] MEDS ORDERED: NITROSTAT SL PRN (02:04)
--- NOTE | 2018-09-29 02:18 | History and Physical Report ---
History of Present Illness Date of examination: 09/29/18 Date of admission: 09/29/2018 Chief complaint: KAYA History of present illness: 58 year old female who is an ongoing smoker with history of GERD, COPD, chronic respiratory failure on 3-4L home oxygen, CAD s/p stent, hypertension, anxiety, depression who presents to [facility] ED via EMS with complaints of difficulty breathing. Patient states that she has been experiencing shortness of breath and cough with yellowish sputum production since yesterday evening. Pt states that she attempted nebulizer treatments with no relief. Her symptoms continued to worsen, so she decide to call EMS. When questioned about her smoking history pt initially stated that she quit smoking a few months ago, but then she admitted that she continues to smoke. She admits to smoking a cigarette shortly before calling EMS. Admits: Current ongoing smoker, cough with occasional discolored sputum production Denies: fever, hemoptysis, n/v/d, recent sick contact Past History Past Medical History: CAD (s/p stent x1), COPD, GERD, hypertension, other (chronic respiratory failure on 3-4L continuous supplemental oxygen) Past Surgical History: Other (back surgery, stents) Social history: smoking (current every day smoker, patient states her last cigarette was before she arrived to our facility) Family history: no significant family history Medications and Allergies Allergies Allergy/AdvReac Type Severity Reaction Status Date / Time hydromorphone [From Dilaudid] Allergy Unknown Verified 09/28/18 21:25 phenobarbital Allergy Unknown Verified 09/28/18 21:25 Home Medications Medication Instructions Recorded Confirmed Last Taken Type ALPRAZolam [Xanax TAB] 0.25 mg PO Q8H PRN #15 tablet 06/19/18 09/28/18 Unknown Rx Baclofen [Lioresal] 10 mg PO BID #60 tab 06/19/18 09/28/18 Unknown Rx busPIRone [Buspar] 5 mg PO BID #60 tab 06/19/18 09/28/18 Unknown Rx Pantoprazole [Protonix TAB] 40 mg PO QDAY #30 tab 08/19/18 09/28/18 Unknown Rx Amlodipine Besylate [Norvasc] 5 mg PO DAILY 09/16/18 09/28/18 Unknown History Budesonide [Pulmicort Respules] 0.5 mg IH Q12H 09/16/18 09/28/18 Unknown History HYDROcodone/APAP 5-325 [[place] 1 each PO BID PRN 09/16/18 09/28/18 Unknown History 5-325 mg TAB] Metoprolol Xl [Metoprolol 100 mg PO QDAY 09/16/18 09/28/18 Unknown History SUCCINATE ER TAB] Nitroglycerin [Nitrostat] 0.4 mg SL Q5M PRN 09/16/18 09/28/18 Unknown History Venlafaxine HCl [Venlafaxine] 100 mg PO TID 09/16/18 09/28/18 Unknown History Albuterol Sulfate [Proair 90 mcg IH Q4H PRN #1 pump 09/21/18 09/28/18 Unknown Rx Respiclick] Ipratropium/Albuterol Sulfate 1 ampul IH BID 30 Days ampul.neb 09/21/18 09/28/18 Unknown Rx [DUONEB *Not for PRN Use*] Prednisone [predniSONE 10 mg 10 mg PO .TAPER #1 tab.ds.pk 09/21/18 09/28/18 Unknown Rx (6-Day Pack, 21 Tabs)] Active Meds: Active Medications Acetaminophen (Tylenol) 650 mg PO Q4H PRN PRN Reason: Pain MILD(1-3)/Fever >100.5/PRAJAPATI Albuterol (Proventil) 2.5 mg IH Q3HRT PRN PRN Reason: Shortness Of Breath Albuterol/Ipratropium (Duoneb *Not For Prn Use*) 1 ampul IH Q6HRT DOMINICK Alprazolam (Xanax) 0.25 mg PO Q8H PRN PRN Reason: Anxiety Amlodipine Besylate (Norvasc) 5 mg PO DAILY DOMINICK Baclofen (Lioresal) 10 mg PO BID DOMINICK Budesonide (Pulmicort) 0.5 mg IH Q12HRT DOMINICK Buspirone HCl (Buspar) 5 mg PO BID DOMINICK Enoxaparin Sodium (Lovenox) 40 mg SUB-Q QDAY DOMINICK Levofloxacin/Dextrose (Levaquin 500mg/100ml) 500 mg in 100 mls @ 100 mls/hr IV Q24HR DOMINICK; Protocol Methylprednisolone Sodium Succinate (Solu-Medrol) 80 mg IV Q8HR DOMINICK Metoprolol Succinate (Toprol Xl) 100 mg PO QDAY DOMINICK Miscellaneous Medication (Venlafaxine Hcl [Venlafaxine]) 100 mg PO TID DOMINICK Nitroglycerin (Nitrostat) 0.4 mg SL Q5M PRN PRN Reason: Chest Pain Ondansetron HCl (Zofran) 4 mg IV Q8H PRN PRN Reason: Nausea And Vomiting Pantoprazole Sodium (Protonix) 40 mg PO QDAY DOMINICK Sodium Chloride (Sodium Chloride Flush Syringe 10 Ml) 10 ml IV BID DOMINICK Sodium Chloride (Sodium Chloride Flush Syringe 10 Ml) 10 ml IV PRN PRN PRN Reason: LINE FLUSH Review of Systems All systems: negative (reviewed and no additional remarkable complaints except as noted below) Respiratory: cough with sputum (yellow), shortness of breath, dyspnea on exertion Exam - Physical Exam Narrative exam: Physical exam General appearance: Present: Alert and oriented 2-3, anxious, combative, chronically ill appearing adult female - EENT Eyes: Present: PERRL, EOM intact ENT: hearing intact, no dentition - Neck Neck: Present: supple, normal ROM - Respiratory Respiratory effort: labored, on room air, pt continues to refuse BiPap and removes venti mask Respiratory: Wheezing with poor air movement - Cardiovascular Heart rate: 70 (bpm) Rhythm: SR Heart Sounds: Present: S1 & S2. Absent: rub, click - Extremities Extremities: no ischemia, pulses intact - Peripheral Assessment Peripheral Pulses: within normal limits - Abdominal General gastrointestinal: soft, non-tender, normal bowel sounds - Integumentary Integumentary: Present: warm, dry - Musculoskeletal Musculoskeletal: generalized weakness -Neurological Neurological: CN II-XII grossly intact - Psychiatric Psychiatric: Anxious, combative - Constitutional Vitals: Temp Pulse Resp BP Pulse Ox 98.4 F 95 H 25 H 105/46 92 09/28/18 21:25 09/29/18 01:32 09/29/18 01:32 09/29/18 01:32 09/29/18 01:32 Results - Labs CBC & Chem 7: 09/28/18 22:42 09/28/18 22:42 Labs: Laboratory Last Values WBC 16.3 K/mm3 (4.5-11.0) H 09/28/18 22:42 RBC 4.94 M/mm3 (3.65-5.03) 09/28/18 22:42 Hgb 11.5 gm/dl (10.1-14.3) 09/28/18 22:42 Hct 38.5 % (30.3-42.9) 09/28/18 22:42 MCV 78 fl (79-97) L 09/28/18 22:42 MCH 23 pg (28-32) L 09/28/18 22:42 MCHC 30 % (30-34) 09/28/18 22:42 RDW 19.8 % (13.2-15.2) H 09/28/18 22:42 Plt Count 264 K/mm3 (140-440) 09/28/18 22:42 Lymph % (Auto) 14.8 % (13.4-35.0) 09/28/18 22:42 [place] % (Auto) 10.8 % (0.0-7.3) H 09/28/18 22:42 Eos % (Auto) 1.1 % (0.0-4.3) 09/28/18 22:42 Baso % (Auto) 0.3 % (0.0-1.8) 09/28/18 22:42 Lymph # 2.4 K/mm3 (1.2-5.4) 09/28/18 22:42 [place] # 1.8 K/mm3 (0.0-0.8) H 09/28/18 22:42 Eos # 0.2 K/mm3 (0.0-0.4) 09/28/18 22:42 Baso # 0.1 K/mm3 (0.0-0.1) 09/28/18 22:42 Seg Neutrophils % 73.0 % (40.0-70.0) H 09/28/18 22:42 Seg Neutrophils # 11.9 K/mm3 (1.8-7.7) H 09/28/18 22:42 PT 12.9 Sec. (12.2-14.9) 09/28/18 22:42 INR 1.00 (0.87-1.13) 09/28/18 22:42 APTT 29.2 Sec. (24.2-36.6) 09/28/18 22:42 POC ABG pH 7.319 (7.35-7.45) L 09/28/18 23:09 POC ABG pCO2 56.7 (35-45) H 09/28/18 23:09 POC ABG pO2 65 (80-105) L 09/28/18 23:09 POC ABG HCO3 29.2 (22-26 mml/L) 09/28/18 23:09 POC ABG Total CO2 31 (23-27mmol/L) 09/28/18 23:09 POC ABG O2 Sat 90 09/28/18 23:09 POC ABG Base Excess 3 ((-2) - (+3)mmol/L) 09/28/18 23:09 36 % 09/28/18 23:09 Sodium 146 mmol/L (137-145) H 09/28/18 22:42 Potassium 4.2 mmol/L (3.6-5.0) 09/28/18 22:42 Chloride 102.7 mmol/L (98-107) 09/28/18 22:42 Carbon Dioxide 28 mmol/L (22-30) 09/28/18 22:42 20 mmol/L 09/28/18 22:42 BUN 16 mg/dL (7-17) 09/28/18 22:42 0.5 mg/dL (0.7-1.2) L 09/28/18 22:42 Estimated GFR > 60 ml/min 09/28/18 22:42 32 % 09/28/18 22:42 Glucose 76 mg/dL (65-100) 09/28/18 22:42 Calcium 8.9 mg/dL (8.4-10.2) 09/28/18 22:42 < 0.010 ng/mL (0.00-0.029) 09/28/18 22:42 NT-Pro-B Natriuret Pep 776.7 pg/mL (0-900) 09/28/18 22:42 - Imaging and Cardiology Chest x-ray: report reviewed (prominent diffuse interstitial lung markings may at least in part be chronic; Impression: No acute findings), image reviewed Assessment and Plan Assessment and plan: 58 year old female who is an ongoing smoker with history of GERD, COPD, chronic respiratory failure on 3-4L home oxygen, CAD s/p stent, hypertension, anxiety, depression who presents to [facility] ED via EMS with complaint s of difficulty breathing. Pt was found to be hypoxic and has refused BiPAP. Upon entering termination well patient was found in bed, on room air saturation of 67%, and she removed all monitoring devices/connections. I offered BiPAP she refused. Pt started yelling and stating that she was not going on BiPaP and mentioned that she would call a cab a leave before agreeing to BiPAP. I attempted to place Ventimask on her; she initially refused, then she agreed to place mask on. Acute on chronic hypoxic with hypercapnia respiratory failure -likely due to COPD AE -Initial pH 7.319/56.7/65/29.02 -CXR unrevealing for acute cardiopulmonary abnormalities -Baseline home oxygen requirements of 3-4L of continuous oxygen -Patient offered BiPAP but refused -Pt on Venti Mask and continues to remove mask -Pt desaturates to higg 60's on RA -Continue to monitor saturations -Respiratory treat and assess protocol COPD exacerbation -Leukocytosis 16.3 present on admission -Start IV Levaquin -Scheduled DuoNebs, Pulmicort twice a day, and albuterol when necessary -IV systemic steroids -Mucinex -Pulmonary consult pending Hypertension -Monitor BP -Resume home antihypertensive meds to optimize BP Anxiety -Continue Xanax when necessary -On examination patient displays anxiety and becomes combative at times -Mental health consult pending Depression -Continue Buspar and Effexor History of coronary artery disease -Status post stent 1 -Medically managed for optimization of cardiac function History of tobacco abuse -Current ongoing every day smoker -Patient states her last cigarette was prior to arriving to our facility -Counseled for cessation -Nicotine patch when necessary GERD -Continue PPI DVT PPX -On Lovenox Advance Directives: No VTE prophylaxis?: Chemical Plan of care discussed with patient/family: Yes
[2018-09-29] MEDS ORDERED: BENADRYL IV ONE (05:25)
[2018-09-29] MEDS: SOLU-Medrol IV SCH ×3 (07:05→21:49)
[2018-09-29] MEDS ORDERED: PROTONIX PO ONE (09:13)
[2018-09-29] MEDS ORDERED: LOVENOX SUB-Q ONE (09:13)
[2018-09-29] MEDS ORDERED: LEVAQUIN 500MG/100ML 500 MG/100 ML BAG IV ONE (09:13)
[2018-09-29] MEDS: DUONEB *Not for PRN Use IH SCH ×4 (09:40→21:36)
[2018-09-29] MEDS: EFFEXOR PO SCH ×6 (09:51→19:39)
[2018-09-29] MEDS: LIORESAL PO SCH ×3 (09:52→21:49)
[2018-09-29] MEDS: HABITROL TD SCH (09:52)
[2018-09-29] MEDS: MUCINEX ER PO SCH ×3 (09:52→21:49)
[2018-09-29] MEDS: NORVASC PO SCH (09:52)
[2018-09-29] MEDS: BUSPAR PO SCH ×3 (09:52→21:48)
[2018-09-29] MEDS: PROTONIX PO SCH (09:53)
[2018-09-29] MEDS: TOPROL XL PO SCH (09:53)
[2018-09-29] MEDS: SODIUM CHLORIDE FLUSH SYRINGE 10 ML IV SCH ×2 (09:53→21:49)
[2018-09-29] MEDS: PULMICORT IH SCH ×2 (10:20→21:36)
[2018-09-29] MEDS ORDERED: DUONEB *Not for PRN Use IH ONE ×3 (10:21→21:32)
[2018-09-29] MEDS ORDERED: PULMICORT IH ONE ×2 (10:21→21:31)
--- NOTE | 2018-09-29 12:40 | Event Note ---
Date: 09/29/18 Patient with acute on chronic respiratory failure due to COPD exacerbation. I have seen and examined her. Continue current management.
--- NOTE | 2018-09-29 13:46 | Consultation ---
History of Present Illness Consult date: 09/29/18 Reason for consult: dyspnea, cough, COPD History of present illness: [facility] Dr. Ariana Prado thank you for asking us to participate in the care of this patient. 58 year old female who is an ongoing smoker with history of GERD, COPD, chronic respiratory failure on 3-4L home oxygen, CAD s/p stent, hypertension, anxiety, depression who presents to [facility] via EMS with complaints of difficulty breathing. Patient states that she has been experienc ing shortness of breath and cough with yellowish sputum production since yesterday evening. Pt states that she attempted nebulizer treatments with no relief. Her symptoms continued to worsen, so she decide to call EMS. When questioned about her smoking history pt initially stated that she quit smoking a few months ago, but then she admitted that she continues to smoke. She admits to smoking a cigarette shortly before calling EMS. Patient confused and agitating. Unable to get furthur history. Patient is on 4 litres O2. O2 saturation 96%. Chest xray no obvious acute infiltrates. Official report still pending. Past History Past Medical History: CAD (s/p stent x1), COPD, GERD, hypertension, other (chronic respiratory failure on 3-4L continuous supplemental oxygen) Past Surgical History: Other (back surgery, stents) Social history: smoking (current every day smoker, patient states her last cigarette was before she arrived to our facility) Family history: no significant family history Medications and Allergies Allergies Allergy/AdvReac Type Severity Reaction Status Date / Time hydromorphone [From Dilaudid] Allergy Unknown Verified 09/28/18 21:25 phenobarbital Allergy Unknown Verified 09/28/18 21:25 Home Medications Medication Instructions Recorded Confirmed Last Taken Type ALPRAZolam [Xanax TAB] 0.25 mg PO Q8H PRN #15 tablet 06/19/18 09/28/18 Unknown Rx Baclofen [Lioresal] 10 mg PO BID #60 tab 06/19/18 09/28/18 Unknown Rx busPIRone [Buspar] 5 mg PO BID #60 tab 06/19/18 09/28/18 Unknown Rx Pantoprazole [Protonix TAB] 40 mg PO QDAY #30 tab 08/19/18 09/28/18 Unknown Rx Amlodipine Besylate [Norvasc] 5 mg PO DAILY 09/16/18 09/28/18 Unknown History Budesonide [Pulmicort Respules] 0.5 mg IH Q12H 09/16/18 09/28/18 Unknown History HYDROcodone/APAP 5-325 [Tilly 1 each PO BID PRN 09/16/18 09/28/18 Unknown History 5-325 mg TAB] Metoprolol Xl [Metoprolol 100 mg PO QDAY 09/16/18 09/28/18 Unknown History SUCCINATE ER TAB] Nitroglycerin [Nitrostat] 0.4 mg SL Q5M PRN 09/16/18 09/28/18 Unknown History Venlafaxine HCl [Venlafaxine] 100 mg PO TID 09/16/18 09/28/18 Unknown History Albuterol Sulfate [Proair 90 mcg IH Q4H PRN #1 pump 09/21/18 09/28/18 Unknown Rx Respiclick] Ipratropium/Albuterol Sulfate 1 ampul IH BID 30 Days ampul.neb 09/21/18 09/28/18 Unknown Rx [DUONEB *Not for PRN Use*] Prednisone [predniSONE 10 mg 10 mg PO .TAPER #1 tab.ds.pk 09/21/18 09/28/18 Unknown Rx (6-Day Pack, 21 Tabs)] Active Meds: Active Medications Acetaminophen (Tylenol) 650 mg PO Q4H PRN PRN Reason: Pain MILD(1-3)/Fever >100.5/PRAJAPATI Albuterol (Proventil) 2.5 mg IH Q3HRT PRN PRN Reason: Shortness Of Breath Albuterol/Ipratropium (Duoneb *Not For Prn Use*) 1 ampul IH Q6HRT [facility] Last Admin: 09/29/18 10:20 Dose: 1 ampul Documented by: Alprazolam (Xanax) 0.25 mg PO Q8H PRN PRN Reason: Anxiety Amlodipine Besylate (Norvasc) 5 mg PO DAILY [facility] Last Admin: 09/29/18 09:52 Dose: Not Given Documented by: Baclofen (Lioresal) 10 mg PO BID [facility] Last Admin: 09/29/18 09:52 Dose: Not Given Documented by: Budesonide (Pulmicort) 0.5 mg IH Q12HRT [facility] Last Admin: 09/29/18 10:20 Dose: 0.5 mg Documented by: Buspirone HCl (Buspar) 5 mg PO BID [facility] Last Admin: 09/29/18 09:52 Dose: Not Given Documented by: Enoxaparin Sodium (Lovenox) 40 mg SUB-Q QDAY [facility] Guaifenesin (Mucinex Er) 600 mg PO BID [facility] Last Admin: 09/29/18 09:52 Dose: Not Given Documented by: Levofloxacin/Dextrose (Levaquin 500mg/100ml) 500 mg in 100 mls @ 100 mls/hr IV Q24HR [facility]; Protocol Methylprednisolone Sodium Succinate (Solu-Medrol) 80 mg IV Q8HR [facility] Last Admin: 09/29/18 07:05 Dose: Not Given Documented by: Metoprolol Succinate (Toprol Xl) 100 mg PO QDAY [facility] Last Admin: 09/29/18 09:53 Dose: Not Given Documented by: Nicotine (Habitrol) 14 mg TD QDAY [facility] Last Admin: 09/29/18 09:52 Dose: 14 mg Documented by: Nitroglycerin (Nitrostat) 0.4 mg SL Q5M PRN PRN Reason: Chest Pain Ondansetron HCl (Zofran) 4 mg IV Q8H PRN PRN Reason: Nausea And Vomiting Pantoprazole Sodium (Protonix) 40 mg PO QDAY [facility] Last Admin: 09/29/18 09:53 Dose: Not Given Documented by: Sodium Chloride (Sodium Chloride Flush Syringe 10 Ml) 10 ml IV BID [facility] Last Admin: 09/29/18 09:53 Dose: 10 ml Documented by: Sodium Chloride (Sodium Chloride Flush Syringe 10 Ml) 10 ml IV PRN PRN PRN Reason: LINE FLUSH Venlafaxine HCl (Effexor) 25 mg PO TID [facility] Last Admin: 09/29/18 09:51 Dose: Not Given Documented by: Venlafaxine HCl (Effexor) 75 mg PO TID [facility] Last Admin: 09/29/18 09:51 Dose: Not Given Documented by: Review of Systems All systems: negative Physical Examination Vital signs: Vital Signs Temp Pulse Resp BP Pulse Ox 98.4 F 74 19 94/47 92 09/28/18 21:25 09/28/18 21:25 09/28/18 21:25 09/28/18 21:25 09/28/18 21:25 General appearance: agitated, appears uncomfortable Eyes: non-icteric ENT: oropharynx moist Neck: supple, no JVD Effort: mildly labored Ascultation: Bilateral: diminished breath sounds Cardiovascular: regular rate and rhythm Gastrointestinal: normoactive bowel sounds, soft Integumentary: normal Extremities: no cyanosis, no edema Musculoskeletal: no deformities Gait: other (Unable to assess,patient is in bed.) unable to assess anxious Results - Laboratory Findings CBC and BMP: 09/28/18 22:42 09/28/18 22:42 ABG POC ABG pH 7.319 (7.35-7.45) L 09/28/18 23:09 POC ABG pCO2 56.7 (35-45) H 09/28/18 23:09 POC ABG pO2 65 (80-105) L 09/28/18 23:09 POC ABG HCO3 29.2 (22-26 mml/L) 09/28/18 23:09 POC ABG Total CO2 31 (23-27mmol/L) 09/28/18 23:09 POC ABG O2 Sat 90 09/28/18 23:09 PT/INR, D-dimer PT 12.9 Sec. (12.2-14.9) 09/28/18 22:42 INR 1.00 (0.87-1.13) 09/28/18 22:42 Abnormal lab findings: Abnormal Labs 09/28/18 09/28/18 09/28/18 22:42 22:42 23:09 WBC 16.3 H MCV 78 L MCH 23 L RDW 19.8 H Dukes % (Auto) 10.8 H Dukes # 1.8 H Seg Neutrophils % 73.0 H Seg Neutrophils # 11.9 H POC ABG pH 7.319 L POC ABG pCO2 56.7 H POC ABG pO2 65 L Sodium 146 H Creatinine 0.5 L - Diagnostic Findings Chest x-ray: report reviewed (No obvious acute infiltrates. Official report pending.), image reviewed Assessment and Plan 58 year old female who is an ongoing smoker with history of GERD, COPD, chronic respiratory failure on 3-4L home oxygen, CAD s/p stent, hypertension, anxiety, depression who presents to [facility] via EMS with complaints of difficulty breathing. Patient states that she has been experi encing shortness of breath and cough with yellowish sputum production since yesterday evening. Pt states that she attempted nebulizer treatments with no relief. Her symptoms continued to worsen, so she decide to call EMS. When questioned about her smoking history pt initially stated that she quit smoking a few months ago, but then she admitted that she continues to smoke. She admits to smoking a cigarette shortly before calling EMS. Patient confused and agitating. Unable to get furthur history. Patient is on 4 litres O2. O2 saturation 96%. Chest xray no obvious acute infiltrates. Official report still pending. - Patient Problems (1) Acute on chronic respiratory failure with hypoxia and hypercapnia Current Visit: Yes Status: Chronic Plan to address problem: O2 supplementation 4 litres via nasal canula. BIPAP standby in the room. 15/5, rate 16, FIO2 35%. Albuterol/atrovent aerosol treatments q 6 hours. Continue I/V solumedrol. Continue levaquin. Continue S/C Lovenox. Continue protonix. (2) Acute exacerbation of chronic obstructive pulmonary disease (COPD) Current Visit: Yes Status: Acute Plan to address problem: 2 supplementation 4 litres via nasal canula. BIPAP standby in the room.15/5, rate 16, FIO2 35% Albuterol/atrovent aerosol treatments q 6 hours. Continue I/V solumedrol. Continue levaquin. Continue S/C Lovenox. Continue protonix (3) Acute chest pain Current Visit: No Status: Acute Plan to address problem: Management as per primary care and cardiology.
[2018-09-29] MEDS: LOVENOX SUB-Q SCH (17:11)
[2018-09-29] MEDS: LEVAQUIN 500MG/100ML 500 MG/100 ML BAG IV SCH (17:12)
[2018-09-29] MEDS ORDERED: SOLU-Medrol ONE ×2 (18:06→21:45)
[2018-09-29] MEDS ORDERED: BUSPAR ONE (21:45)
[2018-09-29] MEDS ORDERED: LIORESAL ONE (21:45)
[2018-09-29] MEDS ORDERED: XANAX ONE (23:16)
[2018-09-30] MEDS: DUONEB *Not for PRN Use IH SCH ×4 (02:33→19:57)
[2018-09-30 05:15] LABS: Mean Corpuscular HGB Conc 30 % (30-34); Mean Corpuscular Volume 78 fl (79-97); Platelet Count 194 K/mm3 (140-440); Red Blood Count 4.39 M/mm3 (3.65-5.03)
[2018-09-30 05:22] LABS: BUN/Creatinine Ratio 50; Blood Urea Nitrogen 20 mg/dL (7-17); Hematocrit 34.2 % (30.3-42.9); Hemoglobin 10.4 gm/dl (10.1-14.3); Hemolysis Index 3; Red Cell Distribution Width 20.3 % (13.2-15.2)
[2018-09-30] MEDS: SOLU-Medrol IV SCH ×3 (06:29→21:37)
[2018-09-30 07:55] LABS: Basophils % (Manual) 0 % (0.0-1.8); Eosinophils % (Manual) 0 % (0.0-4.3); Total Cells Counted 100
[2018-09-30 08:02] LABS: Anisocytosis 1+; Hypochromasia 1+; Macrocytosis Few; Ovalocytes Rare; Platelet Estimate Consistent w Auto; Poikilocytosis Few
[2018-09-30] MEDS: PULMICORT IH SCH ×2 (08:10→19:57)
[2018-09-30] MEDS: EFFEXOR PO SCH ×6 (10:15→21:30)
[2018-09-30] MEDS: PROTONIX PO SCH (10:15)
[2018-09-30] MEDS: LOVENOX SUB-Q SCH (10:15)
[2018-09-30] MEDS: BUSPAR PO SCH ×2 (10:15→21:31)
[2018-09-30] MEDS: LIORESAL PO SCH ×2 (10:15→21:31)
[2018-09-30] MEDS: NORVASC PO SCH (10:15)
[2018-09-30] MEDS: HABITROL TD SCH (10:16)
[2018-09-30] MEDS: LEVAQUIN 500MG/100ML 500 MG/100 ML BAG IV SCH (10:17)
[2018-09-30] MEDS: SODIUM CHLORIDE FLUSH SYRINGE 10 ML IV SCH ×2 (10:17→21:32)
--- NOTE | 2018-09-30 11:02 | Progress Note ---
Assessment and Plan Assessment and plan: Acute on chronic hypoxic with hypercapnia respiratory failure -due to COPD exacerbation -Initial pH 7.319/56.7/65/29.02 -CXR unrevealing for acute cardiopulmonary abnormalities -Baseline home oxygen requirements of 3-4L of continuous oxygen -Patient offered BiPAP but refused -Pt desaturates to high 60's on RA -Pulmonology following -Respiratory treat and assess protocol COPD exacerbation -Continue IV Levaquin -Scheduled DuoNebs, Pulmicort twice a day, and albuterol when necessary -IV systemic steroids -Mucinex -Pulmonary consult pending Hypertension -Monitor BP, which is stable -Resume home antihypertensive meds to optimize BP Anxiety -Continue Xanax when necessary -On examination patient displays anxiety and becomes combative at times -Mental health consult pending Depression -Continue Buspar and Effexor History of coronary artery disease -Status post stent 1 -Medically managed for optimization of cardiac function History of tobacco abuse -Current ongoing every day smoker -Patient states her last cigarette was prior to arriving to our facility -Counseled for cessation GERD -Continue PPI DVT PPX -On Lovenox History Interval history: Shortness of breath Wheezing Hospitalist Physical - Physical exam Narrative exam: Gen: Not in acute distress, HEENT: Normocephalic, atraumatic Neck: supple, no JVD Heart: S1 and S2 reg, no murmurs, rubs or gallop Lungs: Bilateral rhonchi, wheeze Abd: soft, non tender, non distended, normal BS, Ext: No edema, no clubbing, no cyanosis Neuro: Lethargic - Constitutional Vitals: Temp Pulse Resp BP Pulse Ox 98.0 F 112 H 17 133/65 89 09/30/18 09:08 09/30/18 10:15 09/30/18 09:11 09/30/18 10:15 09/30/18 09:11 Results - Labs CBC & Chem 7: 09/30/18 04:33 09/30/18 04:33 Labs: Laboratory Last Values WBC 6.8 K/mm3 (4.5-11.0) 09/30/18 04:33 RBC 4.39 M/mm3 (3.65-5.03) 09/30/18 04:33 Hgb 10.4 gm/dl (10.1-14.3) 09/30/18 04:33 Hct 34.2 % (30.3-42.9) 09/30/18 04:33 MCV 78 fl (79-97) L 09/30/18 04:33 MCH 24 pg (28-32) L 09/30/18 04:33 MCHC 30 % (30-34) 09/30/18 04:33 RDW 20.3 % (13.2-15.2) H 09/30/18 04:33 Plt Count 194 K/mm3 (140-440) 09/30/18 04:33 Lymph % (Auto) 14.8 % (13.4-35.0) 09/28/18 22:42 [place] % (Auto) 10.8 % (0.0-7.3) H 09/28/18 22:42 Eos % (Auto) 1.1 % (0.0-4.3) 09/28/18 22:42 Baso % (Auto) 0.3 % (0.0-1.8) 09/28/18 22:42 Lymph # 2.4 K/mm3 (1.2-5.4) 09/28/18 22:42 [place] # 1.8 K/mm3 (0.0-0.8) H 09/28/18 22:42 Eos # 0.2 K/mm3 (0.0-0.4) 09/28/18 22:42 Baso # 0.1 K/mm3 (0.0-0.1) 09/28/18 22:42 Add Manual Diff Complete 09/30/18 04:33 Total Counted 100 09/30/18 04:33 Seg Neutrophils % [employer] 09/30/18 04:33 Seg Neuts % (Manual) 95.0 % (40.0-70.0) H 09/30/18 04:33 0 % 09/30/18 04:33 4.0 % (13.4-35.0) L 09/30/18 04:33 Reactive Lymphs % (Man) 0 % 09/30/18 04:33 1.0 % (0.0-7.3) 09/30/18 04:33 0 % (0.0-4.3) 09/30/18 04:33 0 % (0.0-1.8) 09/30/18 04:33 0 % 09/30/18 04:33 0 % 09/30/18 04:33 0 % 09/30/18 04:33 0 % 09/30/18 04:33 Nucleated RBC % Not Reportable 09/30/18 04:33 Seg Neutrophils # 11.9 K/mm3 (1.8-7.7) H 09/28/18 22:42 Seg Neutrophils # Man 6.5 K/mm3 (1.8-7.7) 09/30/18 04:33 Band Neutrophils # 0.0 K/mm3 09/30/18 04:33 0.3 K/mm3 (1.2-5.4) L 09/30/18 04:33 Abs React Lymphs (Man) 0.0 K/mm3 09/30/18 04:33 0.1 K/mm3 (0.0-0.8) 09/30/18 04:33 0.0 K/mm3 (0.0-0.4) 09/30/18 04:33 0.0 K/mm3 (0.0-0.1) 09/30/18 04:33 0.0 K/mm3 09/30/18 04:33 0.0 K/mm3 09/30/18 04:33 0.0 K/mm3 09/30/18 04:33 Blast Cells # 0.0 K/mm3 09/30/18 04:33 WBC Morphology Not Reportable 09/30/18 04:33 Hypersegmented Neuts Not Reportable 09/30/18 04:33 Hyposegmented Neuts Not Reportable 09/30/18 04:33 Hypogranular Neuts Not Reportable 09/30/18 04:33 Not Reportable 09/30/18 04:33 Not Reportable 09/30/18 04:33 Not Reportable 09/30/18 04:33 Not Reportable 09/30/18 04:33 Not Reportable 09/30/18 04:33 Not Reportable 09/30/18 04:33 Consistent w auto 09/30/18 04:33 Not Reportable 09/30/18 04:33 Plt Clumps, EDTA Not Reportable 09/30/18 04:33 Not Reportable 09/30/18 04:33 Not Reportable 09/30/18 04:33 Not Reportable 09/30/18 04:33 Plt Morphology Comment Not Reportable 09/30/18 04:33 RBC Morphology Not Reportable 09/30/18 04:33 Dimorphic RBCs Not Reportable 09/30/18 04:33 Not Reportable 09/30/18 04:33 1+ 09/30/18 04:33 Few 09/30/18 04:33 1+ 09/30/18 04:33 Not Reportable 09/30/18 04:33 Few 09/30/18 04:33 Not Reportable 09/30/18 04:33 Not Reportable 09/30/18 04:33 Not Reportable 09/30/18 04:33 Not Reportable 09/30/18 04:33 Not Reportable 09/30/18 04:33 Rare 09/30/18 04:33 Not Reportable 09/30/18 04:33 Not Reportable 09/30/18 04:33 Not Reportable 09/30/18 04:33 Not Reportable 09/30/18 04:33 Not Reportable 09/30/18 04:33 Not Reportable 09/30/18 04:33 Not Reportable 09/30/18 04:33 Acanthocytes (Spur) Not Reportable 09/30/18 04:33 Rouleaux Not Reportable 09/30/18 04:33 Not Reportable 09/30/18 04:33 Not Reportable 09/30/18 04:33 Not Reportable 09/30/18 04:33 Not Reportable 09/30/18 04:33 Hem Pathologist Commnt No 09/30/18 04:33 PT 12.9 Sec. (12.2-14.9) 09/28/18 22:42 INR 1.00 (0.87-1.13) 09/28/18 22:42 APTT 29.2 Sec. (24.2-36.6) 09/28/18 22:42 POC ABG pH 7.322 (7.35-7.45) L 09/29/18 08:29 POC ABG pCO2 55.2 (35-45) H 09/29/18 08:29 POC ABG pO2 74 (80-105) L 09/29/18 08:29 POC ABG HCO3 28.6 (22-26 mml/L) 09/29/18 08:29 POC ABG Total CO2 30 (23-27mmol/L) 09/29/18 08:29 POC ABG O2 Sat 93 09/29/18 08:29 POC ABG Base Excess 2 ((-2) - (+3)mmol/L) 09/29/18 08:29 36 % 09/29/18 08:29 Sodium 147 mmol/L (137-145) H 09/30/18 04:33 Potassium 4.4 mmol/L (3.6-5.0) 09/30/18 04:33 Chloride 106.9 mmol/L (98-107) 09/30/18 04:33 Carbon Dioxide 32 mmol/L (22-30) H 09/30/18 04:33 13 mmol/L 09/30/18 04:33 BUN 20 mg/dL (7-17) H 09/30/18 04:33 0.4 mg/dL (0.7-1.2) L 09/30/18 04:33 Estimated GFR > 60 ml/min 09/30/18 04:33 50 % 09/30/18 04:33 Glucose 145 mg/dL (65-100) H 09/30/18 04:33 Calcium 9.0 mg/dL (8.4-10.2) 09/30/18 04:33 < 0.010 ng/mL (0.00-0.029) 09/28/18 22:42 NT-Pro-B Natriuret Pep 776.7 pg/mL (0-900) 09/28/18 22:42 Active Medications - Current Medications Current Medications: Generic Name Dose Route Start Last Admin Trade Name Freq PRN Reason Stop Dose Admin Acetaminophen 650 mg 09/29/18 02:01 Tylenol PO Q4H PRN Pain MILD(1-3)/Fever >100.5/PRAJAPATI Albuterol 2.5 mg 09/29/18 02:01 Proventil IH Q3HRT PRN Shortness Of Breath Albuterol/Ipratropium 1 ampul 09/29/18 02:00 09/30/18 08:10 Duoneb *Not For Prn Use* IH 1 ampul Q6HRT [facility] Administration Alprazolam 0.25 mg 09/29/18 02:04 09/29/18 23:16 Xanax PO 0.25 mg Q8H PRN Administration Anxiety Amlodipine Besylate 5 mg 09/29/18 10:00 09/30/18 10:15 Norvasc PO 5 mg DAILY [facility] Administration Baclofen 10 mg 09/29/18 10:00 09/30/18 10:15 Lioresal PO 10 mg BID [facility] Administration Budesonide 0.5 mg 09/29/18 08:00 09/30/18 08:10 Pulmicort IH 0.5 mg Q12HRT [facility] Administration Buspirone HCl 5 mg 09/29/18 10:00 09/30/18 10:15 Buspar PO 5 mg BID [facility] Administration Enoxaparin Sodium 40 mg 09/29/18 10:00 09/30/18 10:15 Lovenox SUB-Q 40 mg QDAY [facility] Administration Guaifenesin 600 mg 09/29/18 10:00 09/29/18 21:49 Mucinex Er PO 600 mg BID [facility] Administration Levofloxacin/Dextrose 500 mg in 100 mls @ 100 mls/hr 09/29/18 10:00 09/30/18 10:17 Levaquin 500mg/100ml IV 100 mls/hr Q24HR [facility] Administration Protocol Methylprednisolone Sodium Succinate 80 mg 09/29/18 06:00 09/30/18 06:29 Solu-Medrol IV 80 mg Q8HR [facility] Administration Metoprolol Succinate 100 mg 09/29/18 10:00 09/29/18 09:53 Toprol Xl PO Not Given QDAY [facility] Nicotine 14 mg 09/29/18 10:00 09/30/18 10:16 Habitrol TD 14 mg QDAY [facility] Administration Nitroglycerin 0.4 mg 09/29/18 02:04 Nitrostat SL Q5M PRN Chest Pain Ondansetron HCl 4 mg 09/29/18 02:01 Zofran IV Q8H PRN Nausea And Vomiting Pantoprazole Sodium 40 mg 09/29/18 10:00 09/30/18 10:15 Protonix PO 40 mg QDAY [facility] Administration Sodium Chloride 10 ml 09/29/18 10:00 09/30/18 10:17 Sodium Chloride Flush Syringe 10 Ml IV 10 ml BID [facility] Administration Sodium Chloride 10 ml 09/29/18 02:01 Sodium Chloride Flush Syringe 10 Ml IV PRN PRN LINE FLUSH Venlafaxine HCl 25 mg 09/29/18 08:00 09/30/18 10:16 Effexor PO 25 mg TID [facility] Administration Venlafaxine HCl 75 mg 09/29/18 08:00 09/30/18 10:15 Effexor PO 75 mg TID [facility] Administration
[2018-09-30] MEDS ORDERED: NORCO 5/325 PO PRN (13:31)
--- NOTE | 2018-09-30 13:48 | Progress Note ---
Assessment and Plan Patient alert, awake. On 3 litres o2. O2 saturation 91%. Breathing better than yesterday. Patient afebrile. No leukocytosis.. - Patient Problems (1) Acute on chronic respiratory failure with hypoxia and hypercapnia Current Visit: Yes Status: Chronic Plan to address problem: O2 supplementation 3 litres via nasal canula. BIPAP standby in the room. 15/5, rate 16, FIO2 35%. Albuterol/atrovent aerosol treatments q 6 hours. Continue I/V solumedrol. Continue levaquin. Continue S/C Lovenox. Continue protonix. (2) Acute exacerbation of chronic obstructive pulmonary disease (COPD) Current Visit: Yes Status: Acute Plan to address problem: 2 supplementation 3 litres via nasal canula. BIPAP standby in the room.15/5, rate 16, FIO2 35% Albuterol/atrovent aerosol treatments q 6 hours. Continue I/V solumedrol. Continue levaquin. Continue S/C Lovenox. Continue protonix (3) Acute chest pain Current Visit: No Status: Acute Plan to address problem: Management as per primary care and cardiology. Subjective Date of service: 09/30/18 Interval history: Patient alert, awake. On 3 litres o2. O2 saturation 91%. Breathing better than yesterday. Patient afebrile. No leukocytosis. Objective Vital Signs - 12hr 09/30/18 09/30/18 09/30/18 01:51 02:00 02:11 Temperature Pulse Rate 84 83 85 Pulse Rate [ From Monitor] Pulse Rate [ Throughout] Respiratory 16 16 19 Rate Respiratory Rate [ Throughout] Blood Pressure 129/59 110/51 110/51 O2 Sat by Pulse 90 89 89 Oximetry 09/30/18 09/30/18 09/30/18 02:21 02:31 02:41 Temperature Pulse Rate 88 Pulse Rate [ From Monitor] Pulse Rate [ Throughout] Respiratory 34 H 17 23 Rate Respiratory Rate [ Throughout] Blood Pressure 110/51 110/51 110/51 O2 Sat by Pulse 76 L 94 90 Oximetry 09/30/18 09/30/18 09/30/18 02:51 03:00 03:11 Temperature Pulse Rate 86 86 86 Pulse Rate [ From Monitor] Pulse Rate [ Throughout] Respiratory 20 21 18 Rate Respiratory Rate [ Throughout] Blood Pressure 110/51 119/56 119/56 O2 Sat by Pulse 92 83 L 96 Oximetry 09/30/18 09/30/18 09/30/18 03:21 03:31 03:41 Temperature Pulse Rate 86 86 86 Pulse Rate [ From Monitor] Pulse Rate [ Throughout] Respiratory 20 19 18 Rate Respiratory Rate [ Throughout] Blood Pressure 119/56 119/56 119/56 O2 Sat by Pulse 96 97 97 Oximetry 09/30/18 09/30/18 09/30/18 03:51 04:00 04:11 Temperature Pulse Rate 86 86 84 Pulse Rate [ From Monitor] Pulse Rate [ Throughout] Respiratory 18 19 18 Rate Respiratory Rate [ Throughout] Blood Pressure 119/56 115/54 115/54 O2 Sat by Pulse 97 95 94 Oximetry 09/30/18 09/30/18 09/30/18 04:16 04:21 04:31 Temperature 98.1 F Pulse Rate 85 85 Pulse Rate [ From Monitor] Pulse Rate [ Throughout] Respiratory 17 19 Rate Respiratory Rate [ Throughout] Blood Pressure 115/54 115/54 O2 Sat by Pulse 94 94 Oximetry 09/30/18 09/30/18 09/30/18 04:41 04:51 05:01 Temperature Pulse Rate 83 89 92 H Pulse Rate [ From Monitor] Pulse Rate [ Throughout] Respiratory 18 20 18 Rate Respiratory Rate [ Throughout] Blood Pressure 115/54 115/54 147/70 O2 Sat by Pulse 94 94 89 Oximetry 09/30/18 09/30/18 09/30/18 05:11 05:21 05:31 Temperature Pulse Rate 92 H 87 89 Pulse Rate [ From Monitor] Pulse Rate [ Throughout] Respiratory 16 20 18 Rate Respiratory Rate [ Throughout] Blood Pressure 147/70 147/70 147/70 O2 Sat by Pulse 95 94 94 Oximetry 09/30/18 09/30/18 09/30/18 05:41 05:51 06:01 Temperature Pulse Rate 97 H 112 H Pulse Rate [ From Monitor] Pulse Rate [ Throughout] Respiratory 28 H Rate Respiratory Rate [ Throughout] Blood Pressure 147/70 147/70 182/116 O2 Sat by Pulse 88 86 76 L Oximetry 09/30/18 09/30/18 09/30/18 06:11 06:21 06:31 Temperature Pulse Rate 94 H 91 H 90 Pulse Rate [ From Monitor] Pulse Rate [ Throughout] Respiratory 21 15 19 Rate Respiratory Rate [ Throughout] Blood Pressure 182/116 129/41 129/41 O2 Sat by Pulse 88 94 94 Oximetry 09/30/18 09/30/18 09/30/18 06:41 06:51 07:00 Temperature Pulse Rate 96 H 92 H 94 H Pulse Rate [ From Monitor] Pulse Rate [ Throughout] Respiratory 17 17 19 Rate Respiratory Rate [ Throughout] Blood Pressure 129/41 129/41 115/54 O2 Sat by Pulse 95 97 89 Oximetry 09/30/18 09/30/18 09/30/18 07:11 07:21 07:31 Temperature Pulse Rate 95 H 95 H 90 Pulse Rate [ From Monitor] Pulse Rate [ Throughout] Respiratory 18 16 17 Rate Respiratory Rate [ Throughout] Blood Pressure 115/54 115/54 115/54 O2 Sat by Pulse 97 97 98 Oximetry 09/30/18 09/30/18 09/30/18 07:41 07:51 08:00 Temperature 98.0 F Pulse Rate 92 H 92 H 90 Pulse Rate [ 89 From Monitor] Pulse Rate [ Throughout] Respiratory 17 18 17 Rate Respiratory Rate [ Throughout] Blood Pressure 115/54 115/54 131/64 O2 Sat by Pulse 96 98 85 Oximetry 09/30/18 09/30/18 09/30/18 08:10 08:11 08:13 Temperature Pulse Rate 78 Pulse Rate [ From Monitor] Pulse Rate [ 82 Throughout] Respiratory 16 Rate Respiratory 16 Rate [ Throughout] Blood Pressure 131/64 O2 Sat by Pulse 97 94 Oximetry 09/30/18 09/30/18 09/30/18 08:21 08:31 08:41 Temperature Pulse Rate 87 114 H 96 H Pulse Rate [ From Monitor] Pulse Rate [ Throughout] Respiratory 16 20 18 Rate Respiratory Rate [ Throughout] Blood Pressure 131/64 131/64 131/64 O2 Sat by Pulse 99 92 95 Oximetry 09/30/18 09/30/18 09/30/18 08:51 09:01 09:08 Temperature 98.0 F Pulse Rate 86 106 H Pulse Rate [ From Monitor] Pulse Rate [ Throughout] Respiratory 17 18 Rate Respiratory Rate [ Throughout] Blood Pressure 131/64 138/73 O2 Sat by Pulse 91 76 L Oximetry 09/30/18 09/30/18 09/30/18 09:11 09:21 09:31 Temperature Pulse Rate 102 H 91 H 107 H Pulse Rate [ From Monitor] Pulse Rate [ Throughout] Respiratory 17 15 17 Rate Respiratory Rate [ Throughout] Blood Pressure 138/73 138/73 138/73 O2 Sat by Pulse 90 82 L 85 Oximetry 09/30/18 09/30/18 09/30/18 09:41 09:51 10:00 Temperature Pulse Rate 113 H 111 H 112 H Pulse Rate [ From Monitor] Pulse Rate [ Throughout] Respiratory 26 H 17 23 Rate Respiratory Rate [ Throughout] Blood Pressure 138/73 138/73 133/65 O2 Sat by Pulse 91 89 80 L Oximetry 09/30/18 09/30/18 09/30/18 10:11 10:15 10:21 Temperature Pulse Rate 112 H 112 H 110 H Pulse Rate [ From Monitor] Pulse Rate [ Throughout] Respiratory 25 H 20 Rate Respiratory Rate [ Throughout] Blood Pressure 133/65 133/65 133/65 O2 Sat by Pulse 91 89 Oximetry 09/30/18 09/30/18 09/30/18 10:31 10:41 10:51 Temperature Pulse Rate 108 H 96 H 93 H Pulse Rate [ From Monitor] Pulse Rate [ Throughout] Respiratory 17 23 21 Rate Respiratory Rate [ Throughout] Blood Pressure 133/65 133/65 133/65 O2 Sat by Pulse 92 91 93 Oximetry 09/30/18 09/30/18 09/30/18 11:01 11:11 11:21 Temperature Pulse Rate 125 H 101 H 93 H Pulse Rate [ From Monitor] Pulse Rate [ Throughout] Respiratory 21 18 22 Rate Respiratory Rate [ Throughout] Blood Pressure 156/74 156/74 156/74 O2 Sat by Pulse 89 96 94 Oximetry 09/30/18 09/30/18 09/30/18 11:31 11:41 11:51 Temperature Pulse Rate 76 100 H 109 H Pulse Rate [ From Monitor] Pulse Rate [ Throughout] Respiratory 19 22 24 Rate Respiratory Rate [ Throughout] Blood Pressure 156/74 156/74 156/74 O2 Sat by Pulse 93 93 92 Oximetry 09/30/18 09/30/18 09/30/18 12:00 12:01 12:11 Temperature 97.7 F Pulse Rate 98 H 109 H Pulse Rate [ 98 H From Monitor] Pulse Rate [ Throughout] Respiratory 16 16 15 Rate Respiratory Rate [ Throughout] Blood Pressure 129/60 129/60 O2 Sat by Pulse 94 94 95 Oximetry 09/30/18 09/30/18 09/30/18 12:21 12:31 12:41 Temperature Pulse Rate 97 H 96 H 119 H Pulse Rate [ From Monitor] Pulse Rate [ Throughout] Respiratory 17 19 23 Rate Respiratory Rate [ Throughout] Blood Pressure 129/60 129/60 129/60 O2 Sat by Pulse 94 95 92 Oximetry 09/30/18 09/30/18 12:51 13:01 Temperature Pulse Rate 110 H 112 H Pulse Rate [ From Monitor] Pulse Rate [ Throughout] Respiratory 22 19 Rate Respiratory Rate [ Throughout] Blood Pressure 129/60 133/50 O2 Sat by Pulse 96 95 Oximetry Constitutional: no acute distress, alert Eyes: non-icteric ENT: oropharynx moist Neck: supple, no JVD Effort: mildly labored Ascultation: Bilateral: diminished breath sounds Cardiovascular: regular rate and rhythm Gastrointestinal: normoactive bowel sounds, soft Integumentary: normal Extremities: no cyanosis, no edema Neurologic: unable to assess Psychiatric: anxious CBC and BMP: 09/30/18 04:33 09/30/18 04:33 ABG, PT/INR, D-dimer: ABG POC ABG pH 7.322 (7.35-7.45) L 09/29/18 08:29 POC ABG pCO2 55.2 (35-45) H 09/29/18 08:29 POC ABG pO2 74 (80-105) L 09/29/18 08:29 POC ABG HCO3 28.6 (22-26 mml/L) 09/29/18 08:29 POC ABG Total CO2 30 (23-27mmol/L) 09/29/18 08:29 POC ABG O2 Sat 93 09/29/18 08:29 PT/INR, D-dimer PT 12.9 Sec. (12.2-14.9) 09/28/18 22:42 INR 1.00 (0.87-1.13) 09/28/18 22:42 Abnormal lab findings: Abnormal Labs 09/28/18 09/28/18 09/28/18 22:42 22:42 23:09 WBC 16.3 H MCV 78 L MCH 23 L RDW 19.8 H [place] % (Auto) 10.8 H [place] # 1.8 H Seg Neutrophils % 73.0 H Seg Neuts % (Manual) Lymphocytes % (Manual) Seg Neutrophils # 11.9 H Lymphocytes # (Manual) POC ABG pH 7.319 L POC ABG pCO2 56.7 H POC ABG pO2 65 L Sodium 146 H Carbon Dioxide BUN Creatinine 0.5 L Glucose 09/29/18 09/30/18 09/30/18 08:29 04:33 04:33 WBC MCV 78 L MCH 24 L RDW 20.3 H [place] % (Auto) [place] # Seg Neutrophils % Seg Neuts % (Manual) 95.0 H Lymphocytes % (Manual) 4.0 L Seg Neutrophils # Lymphocytes # (Manual) 0.3 L POC ABG pH 7.322 L POC ABG pCO2 55.2 H POC ABG pO2 74 L Sodium 147 H Carbon Dioxide 32 H BUN 20 H Creatinine 0.4 L Glucose 145 H
[2018-09-30] MEDS: MUCINEX ER PO SCH ×2 (15:00→21:31)
[2018-09-30] MEDS: TOPROL XL PO SCH (15:01)
[2018-10-01] MEDS: DUONEB *Not for PRN Use IH SCH ×4 (04:25→19:27)
[2018-10-01] MEDS: SOLU-Medrol IV SCH ×3 (05:09→22:07)
[2018-10-01 05:16] LABS: BUN/Creatinine Ratio 35; Blood Urea Nitrogen 14 mg/dL (7-17); Calcium 9.2 mg/dL (8.4-10.2); Hemolysis Index 12
[2018-10-01] MEDS: EFFEXOR PO SCH ×6 (07:54→22:58)
--- NOTE | 2018-10-01 08:52 | Progress Note ---
Assessment and Plan Assessment and plan: Acute on chronic hypoxic with hypercapnia respiratory failure -due to COPD exacerbation -Initial pH 7.319/56.7/65/29.02 -CXR unrevealing for acute cardiopulmonary abnormalities -Baseline home oxygen requirements of 3-4L of continuous oxygen -Patient offered BiPAP but refused -Pt desaturates to high 60's on RA -Pulmonology following -Respiratory treat and assess protocol -Less shortness of breath COPD exacerbation -Continue IV Levaquin -Scheduled DuoNebs, Pulmicort twice a day, and albuterol when necessary -IV systemic steroids -Mucinex -Pulmonary consult pending Hypertension -Monitor BP, which is stable -Resume home antihypertensive meds to optimize BP Anxiety -Continue Xanax when necessary -On examination patient displays anxiety and becomes combative at times -Mental health consult pending Depression -Continue Buspar and Effexor History of coronary artery disease -Status post stent 1 -Medically managed for optimization of cardiac function History of tobacco abuse -Current ongoing every day smoker -Patient states her last cigarette was prior to arriving to our facility -Counseled for cessation GERD -Continue PPI DVT PPX -On Lovenox patient improved, stable to transfer to Tele History Interval history: Less Shortness of breath Wheezing Asking for higher frequency pain medications Hospitalist Physical - Physical exam Narrative exam: Gen: Not in acute distress, HEENT: Normocephalic, atraumatic Neck: supple, no JVD Heart: S1 and S2 reg, no murmurs, rubs or gallop Lungs: Bilateral rhonchi, wheeze Abd: soft, non tender, non distended, normal BS, Ext: No edema, no clubbing, no cyanosis Neuro: Awake,alert,oriented X3, moves all ext - Constitutional Vitals: Temp Pulse Resp BP Pulse Ox 97.9 F 96 H 13 148/64 95 10/01/18 08:00 10/01/18 08:11 10/01/18 08:11 10/01/18 08:11 10/01/18 08:11 Results - Labs CBC & Chem 7: 09/30/18 04:33 10/01/18 04:25 Labs: Laboratory Last Values WBC 6.8 K/mm3 (4.5-11.0) 09/30/18 04:33 RBC 4.39 M/mm3 (3.65-5.03) 09/30/18 04:33 Hgb 10.4 gm/dl (10.1-14.3) 09/30/18 04:33 Hct 34.2 % (30.3-42.9) 09/30/18 04:33 MCV 78 fl (79-97) L 09/30/18 04:33 MCH 24 pg (28-32) L 09/30/18 04:33 MCHC 30 % (30-34) 09/30/18 04:33 RDW 20.3 % (13.2-15.2) H 09/30/18 04:33 Plt Count 194 K/mm3 (140-440) 09/30/18 04:33 Lymph % (Auto) 14.8 % (13.4-35.0) 09/28/18 22:42 [place] % (Auto) 10.8 % (0.0-7.3) H 09/28/18 22:42 Eos % (Auto) 1.1 % (0.0-4.3) 09/28/18 22:42 Baso % (Auto) 0.3 % (0.0-1.8) 09/28/18 22:42 Lymph # 2.4 K/mm3 (1.2-5.4) 09/28/18 22:42 [place] # 1.8 K/mm3 (0.0-0.8) H 09/28/18 22:42 Eos # 0.2 K/mm3 (0.0-0.4) 09/28/18 22:42 Baso # 0.1 K/mm3 (0.0-0.1) 09/28/18 22:42 Add Manual Diff Complete 09/30/18 04:33 Total Counted 100 09/30/18 04:33 Seg Neutrophils % Flight Test Data Acquisition Technician 09/30/18 04:33 Seg Neuts % (Manual) 95.0 % (40.0-70.0) H 09/30/18 04:33 0 % 09/30/18 04:33 4.0 % (13.4-35.0) L 09/30/18 04:33 Reactive Lymphs % (Man) 0 % 09/30/18 04:33 1.0 % (0.0-7.3) 09/30/18 04:33 0 % (0.0-4.3) 09/30/18 04:33 0 % (0.0-1.8) 09/30/18 04:33 0 % 09/30/18 04:33 0 % 09/30/18 04:33 0 % 09/30/18 04:33 0 % 09/30/18 04:33 Nucleated RBC % Not Reportable 09/30/18 04:33 Seg Neutrophils # 11.9 K/mm3 (1.8-7.7) H 09/28/18 22:42 Seg Neutrophils # Man 6.5 K/mm3 (1.8-7.7) 09/30/18 04:33 Band Neutrophils # 0.0 K/mm3 09/30/18 04:33 0.3 K/mm3 (1.2-5.4) L 09/30/18 04:33 Abs React Lymphs (Man) 0.0 K/mm3 09/30/18 04:33 0.1 K/mm3 (0.0-0.8) 09/30/18 04:33 0.0 K/mm3 (0.0-0.4) 09/30/18 04:33 0.0 K/mm3 (0.0-0.1) 09/30/18 04:33 0.0 K/mm3 09/30/18 04:33 0.0 K/mm3 09/30/18 04:33 0.0 K/mm3 09/30/18 04:33 Blast Cells # 0.0 K/mm3 09/30/18 04:33 WBC Morphology Not Reportable 09/30/18 04:33 Hypersegmented Neuts Not Reportable 09/30/18 04:33 Hyposegmented Neuts Not Reportable 09/30/18 04:33 Hypogranular Neuts Not Reportable 09/30/18 04:33 Not Reportable 09/30/18 04:33 Not Reportable 09/30/18 04:33 Not Reportable 09/30/18 04:33 Not Reportable 09/30/18 04:33 Not Reportable 09/30/18 04:33 Not Reportable 09/30/18 04:33 Consistent w auto 09/30/18 04:33 Not Reportable 09/30/18 04:33 Plt Clumps, EDTA Not Reportable 09/30/18 04:33 Not Reportable 09/30/18 04:33 Not Reportable 09/30/18 04:33 Not Reportable 09/30/18 04:33 Plt Morphology Comment Not Reportable 09/30/18 04:33 RBC Morphology Not Reportable 09/30/18 04:33 Dimorphic RBCs Not Reportable 09/30/18 04:33 Not Reportable 09/30/18 04:33 1+ 09/30/18 04:33 Few 09/30/18 04:33 1+ 09/30/18 04:33 Not Reportable 09/30/18 04:33 Few 09/30/18 04:33 Not Reportable 09/30/18 04:33 Not Reportable 09/30/18 04:33 Not Reportable 09/30/18 04:33 Not Reportable 09/30/18 04:33 Not Reportable 09/30/18 04:33 Rare 09/30/18 04:33 Not Reportable 09/30/18 04:33 Not Reportable 09/30/18 04:33 Not Reportable 09/30/18 04:33 Not Reportable 09/30/18 04:33 Not Reportable 09/30/18 04:33 Not Reportable 09/30/18 04:33 Not Reportable 09/30/18 04:33 Acanthocytes (Spur) Not Reportable 09/30/18 04:33 [place]le[place] Not Reportable 09/30/18 04:33 Not Reportable 09/30/18 04:33 Not Reportable 09/30/18 04:33 Not Reportable 09/30/18 04:33 Not Reportable 09/30/18 04:33 Hem Pathologist Commnt No 09/30/18 04:33 PT 12.9 Sec. (12.2-14.9) 09/28/18 22:42 INR 1.00 (0.87-1.13) 09/28/18 22:42 APTT 29.2 Sec. (24.2-36.6) 09/28/18 22:42 POC ABG pH 7.322 (7.35-7.45) L 09/29/18 08:29 POC ABG pCO2 55.2 (35-45) H 09/29/18 08:29 POC ABG pO2 74 (80-105) L 09/29/18 08:29 POC ABG HCO3 28.6 (22-26 mml/L) 09/29/18 08:29 POC ABG Total CO2 30 (23-27mmol/L) 09/29/18 08:29 POC ABG O2 Sat 93 09/29/18 08:29 POC ABG Base Excess 2 ((-2) - (+3)mmol/L) 09/29/18 08:29 36 % 09/29/18 08:29 Sodium 139 mmol/L (137-145) D 10/01/18 04:25 Potassium 4.3 mmol/L (3.6-5.0) 10/01/18 04:25 Chloride 101.3 mmol/L (98-107) 10/01/18 04:25 Carbon Dioxide 28 mmol/L (22-30) 10/01/18 04:25 14 mmol/L 10/01/18 04:25 BUN 14 mg/dL (7-17) 10/01/18 04:25 0.4 mg/dL (0.7-1.2) L 10/01/18 04:25 Estimated GFR > 60 ml/min 10/01/18 04:25 35 % 10/01/18 04:25 Glucose 146 mg/dL (65-100) H 10/01/18 04:25 Calcium 9.2 mg/dL (8.4-10.2) 10/01/18 04:25 < 0.010 ng/mL (0.00-0.029) 09/28/18 22:42 NT-Pro-B Natriuret Pep 776.7 pg/mL (0-900) 09/28/18 22:42 Active Medications - Current Medications Current Medications: Generic Name Dose Route Start Last Admin Trade Name Freq PRN Reason Stop Dose Admin Acetaminophen 650 mg 09/29/18 02:01 Tylenol PO Q4H PRN Pain MILD(1-3)/Fever >100.5/PRAJAPATI Acetaminophen/Hydrocodone Bitart 1 each 09/30/18 13:31 09/30/18 15:00 [place] 5/325 PO 1 each BID PRN Administration Pain, Moderate (4-6) Albuterol 2.5 mg 09/29/18 02:01 Proventil IH Q3HRT PRN Shortness Of Breath Albuterol/Ipratropium 1 ampul 09/29/18 02:00 10/01/18 04:25 Duoneb *Not For Prn Use* IH 1 ampul Q6HRT DOMINICK Administration Alprazolam 0.25 mg 09/29/18 02:04 09/29/18 23:16 Xanax PO 0.25 mg Q8H PRN Administration Anxiety Amlodipine Besylate 5 mg 09/29/18 10:00 09/30/18 10:15 Norvasc PO 5 mg DAILY DOMINICK Administration Baclofen 10 mg 09/29/18 10:00 09/30/18 21:31 Lioresal PO 10 mg BID DOMINICK Administration Budesonide 0.5 mg 09/29/18 08:00 09/30/18 19:57 Pulmicort IH 0.5 mg Q12HRT DOMINICK Administration Buspirone HCl 5 mg 09/29/18 10:00 09/30/18 21:31 Buspar PO 5 mg BID DOMINICK Administration Enoxaparin Sodium 40 mg 09/29/18 10:00 09/30/18 10:15 Lovenox SUB-Q 40 mg QDAY DOMINICK Administration Guaifenesin 600 mg 09/29/18 10:00 09/30/18 21:31 Mucinex Er PO 600 mg BID DOMINICK Administration Levofloxacin/Dextrose 500 mg in 100 mls @ 100 mls/hr 09/29/18 10:00 09/30/18 10:17 Levaquin 500mg/100ml IV 100 mls/hr Q24HR DOMINICK Administration Protocol Methylprednisolone Sodium Succinate 80 mg 09/29/18 06:00 10/01/18 05:09 Solu-Medrol IV 80 mg Q8HR DOMINICK Administration Metoprolol Succinate 100 mg 09/29/18 10:00 09/30/18 15:01 Toprol Xl PO 100 mg QDAY DOMINICK Administration Nicotine 14 mg 09/29/18 10:00 09/30/18 10:16 Habitrol TD 14 mg QDAY DOMINICK Administration Nitroglycerin 0.4 mg 09/29/18 02:04 Nitrostat SL Q5M PRN Chest Pain Ondansetron HCl 4 mg 09/29/18 02:01 Zofran IV Q8H PRN Nausea And Vomiting Pantoprazole Sodium 40 mg 09/29/18 10:00 09/30/18 10:15 Protonix PO 40 mg QDAY DOMINICK Administration Sodium Chloride 10 ml 09/29/18 10:00 09/30/18 21:32 Sodium Chloride Flush Syringe 10 Ml IV 10 ml BID DOMINICK Administration Sodium Chloride 10 ml 09/29/18 02:01 Sodium Chloride Flush Syringe 10 Ml IV PRN PRN LINE FLUSH Venlafaxine HCl 25 mg 09/29/18 08:00 10/01/18 07:54 Effexor PO 25 mg TID DOMINICK Administration Venlafaxine HCl 75 mg 09/29/18 08:00 10/01/18 07:54 Effexor PO 75 mg TID DOMINICK Administration Nutrition/Malnutrition Assess - Dietary Evaluation Nutrition/Malnutrition Findings: Nutrition Notes Start: 09/30/18 13:56 Freq: Status: Active Protocol: Document 09/30/18 13:56 RM (Rec: 09/30/18 14:00 RM [id number]) Nutrition Notes Need for Assessment generated from: harness cleaner,MST Initial or Follow up Brief Note Current Diagnosis COPD,Coronary Artery Disease, Hypertension Other Pertinent Diagnosis GERD,Anxiety, Depression, CP Current Diet Cardiac Labs/Tests Reviewed Pertinent Medications Solu-Medrol Height 5 ft 2 in Weight 70.1 kg Usual Body Weight 70 kg [place] Body Weight (kg) 50.00 BMI 28.3 Subjective/Other Information Screened for malnutrition and skin risk. Abdulaziz 15 points. 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 Stated UBW was 154 lbs 2 weeks ago. No temporal or orbital wasting . Burn Absent Trauma Absent Nutrition Intervention Revisit per MD consult or patient Sign Off request:
[2018-10-01] MEDS: LEVAQUIN 500MG/100ML 500 MG/100 ML BAG IV SCH (09:05)
[2018-10-01] MEDS: TOPROL XL PO SCH (09:06)
[2018-10-01] MEDS: MUCINEX ER PO SCH ×2 (09:06→22:06)
[2018-10-01] MEDS: LOVENOX SUB-Q SCH (09:07)
[2018-10-01] MEDS: HABITROL TD SCH (09:07)
[2018-10-01] MEDS: NORVASC PO SCH (09:08)
[2018-10-01] MEDS: BUSPAR PO SCH ×2 (09:08→22:57)
[2018-10-01] MEDS: LIORESAL PO SCH ×2 (09:08→22:06)
[2018-10-01] MEDS: PROTONIX PO SCH (09:08)
[2018-10-01] MEDS: SODIUM CHLORIDE FLUSH SYRINGE 10 ML IV SCH ×2 (09:09→22:07)
--- NOTE | 2018-10-01 09:21 | Progress Note ---
Assessment and Plan Acute on chronic hypoxic with hypercapnia respiratory failure COPD exacerbation Tobacco use disorder/Nicotine dependence Hypertension Anxiety Depression History of coronary artery disease GERD Subjective Date of service: 10/01/18 Objective Vital Signs - 12hr 09/30/18 09/30/18 09/30/18 21:21 21:31 21:41 Temperature Pulse Rate 103 H 87 82 Pulse Rate [ From Monitor] Pulse Rate [ Throughout] Respiratory 22 14 19 Rate Respiratory Rate [Medial Back] Respiratory Rate [ Throughout] Blood Pressure 126/44 126/44 126/44 O2 Sat by Pulse 90 97 96 Oximetry 09/30/18 09/30/18 09/30/18 21:51 22:00 22:11 Temperature Pulse Rate 90 81 80 Pulse Rate [ From Monitor] Pulse Rate [ Throughout] Respiratory 18 15 15 Rate Respiratory 22 Rate [Medial Back] Respiratory Rate [ Throughout] Blood Pressure 126/44 131/60 131/60 O2 Sat by Pulse 94 87 94 Oximetry 09/30/18 09/30/18 09/30/18 22:21 22:31 22:41 Temperature Pulse Rate 83 96 H 88 Pulse Rate [ From Monitor] Pulse Rate [ Throughout] Respiratory 24 26 H 13 Rate Respiratory Rate [Medial Back] Respiratory Rate [ Throughout] Blood Pressure 131/60 131/60 131/60 O2 Sat by Pulse 95 94 93 Oximetry 09/30/18 09/30/18 09/30/18 22:51 23:01 23:11 Temperature Pulse Rate 81 85 87 Pulse Rate [ From Monitor] Pulse Rate [ Throughout] Respiratory 14 14 16 Rate Respiratory Rate [Medial Back] Respiratory Rate [ Throughout] Blood Pressure 131/60 131/60 131/60 O2 Sat by Pulse 95 95 96 Oximetry 09/30/18 09/30/18 09/30/18 23:21 23:31 23:41 Temperature Pulse Rate 88 78 82 Pulse Rate [ From Monitor] Pulse Rate [ Throughout] Respiratory 21 20 15 Rate Respiratory Rate [Medial Back] Respiratory Rate [ Throughout] Blood Pressure 131/60 131/60 131/60 O2 Sat by Pulse 94 96 97 Oximetry 09/30/18 10/01/18 10/01/18 23:51 00:00 00:01 Temperature 98.5 F Pulse Rate 90 76 Pulse Rate [ 78 From Monitor] Pulse Rate [ Throughout] Respiratory 22 16 16 Rate Respiratory Rate [Medial Back] Respiratory Rate [ Throughout] Blood Pressure 131/60 111/50 O2 Sat by Pulse 95 96 93 Oximetry 10/01/18 10/01/18 10/01/18 00:11 00:21 00:31 Temperature Pulse Rate 82 88 79 Pulse Rate [ From Monitor] Pulse Rate [ Throughout] Respiratory 16 24 22 Rate Respiratory Rate [Medial Back] Respiratory Rate [ Throughout] Blood Pressure 111/50 111/50 111/50 O2 Sat by Pulse 96 96 96 Oximetry 10/01/18 10/01/18 10/01/18 00:41 00:51 01:01 Temperature Pulse Rate 82 81 74 Pulse Rate [ From Monitor] Pulse Rate [ Throughout] Respiratory 15 18 16 Rate Respiratory Rate [Medial Back] Respiratory Rate [ Throughout] Blood Pressure 111/50 111/50 88/37 O2 Sat by Pulse 97 99 94 Oximetry 10/01/18 10/01/18 10/01/18 01:11 01:21 01:31 Temperature Pulse Rate 83 84 81 Pulse Rate [ From Monitor] Pulse Rate [ Throughout] Respiratory 18 19 17 Rate Respiratory Rate [Medial Back] Respiratory Rate [ Throughout] Blood Pressure 88/37 88/37 88/37 O2 Sat by Pulse 90 95 95 Oximetry 10/01/18 10/01/18 10/01/18 01:41 01:51 02:00 Temperature Pulse Rate 80 81 77 Pulse Rate [ From Monitor] Pulse Rate [ Throughout] Respiratory 15 16 20 Rate Respiratory Rate [Medial Back] Respiratory Rate [ Throughout] Blood Pressure 88/37 88/37 120/63 O2 Sat by Pulse 96 97 95 Oximetry 10/01/18 10/01/18 10/01/18 02:11 02:21 02:31 Temperature Pulse Rate 80 77 77 Pulse Rate [ From Monitor] Pulse Rate [ Throughout] Respiratory 12 13 17 Rate Respiratory Rate [Medial Back] Respiratory Rate [ Throughout] Blood Pressure 120/63 120/63 120/63 O2 Sat by Pulse 96 98 92 Oximetry 10/01/18 10/01/18 10/01/18 02:41 02:51 03:00 Temperature Pulse Rate 93 H 59 L 83 Pulse Rate [ From Monitor] Pulse Rate [ Throughout] Respiratory 18 18 22 Rate Respiratory Rate [Medial Back] Respiratory Rate [ Throughout] Blood Pressure 120/63 120/63 123/55 O2 Sat by Pulse 89 95 91 Oximetry 10/01/18 10/01/18 10/01/18 03:11 03:21 03:31 Temperature Pulse Rate 78 84 78 Pulse Rate [ From Monitor] Pulse Rate [ Throughout] Respiratory 20 15 21 Rate Respiratory Rate [Medial Back] Respiratory Rate [ Throughout] Blood Pressure 123/55 123/55 123/55 O2 Sat by Pulse 94 94 96 Oximetry 10/01/18 10/01/18 10/01/18 03:41 03:51 04:00 Temperature 98.1 F Pulse Rate 78 61 75 Pulse Rate [ 86 From Monitor] Pulse Rate [ Throughout] Respiratory 16 16 16 Rate Respiratory Rate [Medial Back] Respiratory Rate [ Throughout] Blood Pressure 123/55 123/55 114/46 O2 Sat by Pulse 99 92 99 Oximetry 10/01/18 10/01/18 10/01/18 04:11 04:21 04:25 Temperature Pulse Rate 97 H 83 Pulse Rate [ From Monitor] Pulse Rate [ 78 Throughout] Respiratory 14 17 Rate Respiratory Rate [Medial Back] Respiratory 16 Rate [ Throughout] Blood Pressure 114/46 114/46 O2 Sat by Pulse 98 92 Oximetry 10/01/18 10/01/18 10/01/18 04:31 04:41 04:51 Temperature Pulse Rate 89 91 H 65 Pulse Rate [ From Monitor] Pulse Rate [ Throughout] Respiratory 11 L 9 L 14 Rate Respiratory Rate [Medial Back] Respiratory Rate [ Throughout] Blood Pressure 114/46 114/46 114/46 O2 Sat by Pulse 98 89 89 Oximetry 10/01/18 10/01/18 10/01/18 05:01 05:11 05:21 Temperature Pulse Rate 67 71 76 Pulse Rate [ From Monitor] Pulse Rate [ Throughout] Respiratory 15 15 19 Rate Respiratory Rate [Medial Back] Respiratory Rate [ Throughout] Blood Pressure 140/33 140/33 140/33 O2 Sat by Pulse 85 90 96 Oximetry 10/01/18 10/01/18 10/01/18 05:31 05:41 05:51 Temperature Pulse Rate 75 82 71 Pulse Rate [ From Monitor] Pulse Rate [ Throughout] Respiratory 19 18 16 Rate Respiratory Rate [Medial Back] Respiratory Rate [ Throughout] Blood Pressure 140/33 140/33 140/33 O2 Sat by Pulse 97 97 96 Oximetry 10/01/18 10/01/18 10/01/18 06:01 06:11 06:21 Temperature Pulse Rate 71 71 64 Pulse Rate [ From Monitor] Pulse Rate [ Throughout] Respiratory 18 17 17 Rate Respiratory Rate [Medial Back] Respiratory Rate [ Throughout] Blood Pressure 106/49 106/49 106/49 O2 Sat by Pulse 94 96 98 Oximetry 10/01/18 10/01/18 10/01/18 06:31 06:41 06:51 Temperature Pulse Rate 66 64 64 Pulse Rate [ From Monitor] Pulse Rate [ Throughout] Respiratory 17 15 16 Rate Respiratory Rate [Medial Back] Respiratory Rate [ Throughout] Blood Pressure 106/49 106/49 106/49 O2 Sat by Pulse 98 95 98 Oximetry 10/01/18 10/01/18 10/01/18 07:01 07:11 07:21 Temperature Pulse Rate 100 H 67 72 Pulse Rate [ From Monitor] Pulse Rate [ Throughout] Respiratory 24 13 14 Rate Respiratory Rate [Medial Back] Respiratory Rate [ Throughout] Blood Pressure 106/49 132/58 132/58 O2 Sat by Pulse 79 L 94 76 L Oximetry 10/01/18 10/01/18 10/01/18 07:31 07:41 07:51 Temperature Pulse Rate 68 90 Pulse Rate [ From Monitor] Pulse Rate [ Throughout] Respiratory 15 18 24 Rate Respiratory Rate [Medial Back] Respiratory Rate [ Throughout] Blood Pressure 132/58 132/58 132/58 O2 Sat by Pulse 86 82 L 75 L Oximetry 10/01/18 10/01/18 10/01/18 08:00 08:01 08:11 Temperature 97.9 F Pulse Rate 74 96 H Pulse Rate [ 58 L From Monitor] Pulse Rate [ Throughout] Respiratory 17 13 13 Rate Respiratory Rate [Medial Back] Respiratory Rate [ Throughout] Blood Pressure 148/64 148/64 O2 Sat by Pulse 98 91 95 Oximetry 10/01/18 10/01/18 09:06 09:08 Temperature Pulse Rate 73 73 Pulse Rate [ From Monitor] Pulse Rate [ Throughout] Respiratory Rate Respiratory Rate [Medial Back] Respiratory Rate [ Throughout] Blood Pressure 132/56 132/56 O2 Sat by Pulse Oximetry Constitutional: no acute distress, alert, other (kyphotic) Eyes: non-icteric ENT: oropharynx moist Neck: supple, no JVD Effort: mildly labored Ascultation: Bilateral: diminished breath sounds Cardiovascular: regular rate and rhythm Gastrointestinal: normoactive bowel sounds, soft Integumentary: normal Extremities: no cyanosis, no edema Neurologic: normal mental status, non-focal exam, pupils equal and round Psychiatric: anxious CBC and BMP: 09/30/18 04:33 10/01/18 04:25 ABG, PT/INR, D-dimer: ABG POC ABG pH 7.322 (7.35-7.45) L 09/29/18 08:29 POC ABG pCO2 55.2 (35-45) H 09/29/18 08:29 POC ABG pO2 74 (80-105) L 09/29/18 08:29 POC ABG HCO3 28.6 (22-26 mml/L) 09/29/18 08:29 POC ABG Total CO2 30 (23-27mmol/L) 09/29/18 08:29 POC ABG O2 Sat 93 09/29/18 08:29 PT/INR, D-dimer PT 12.9 Sec. (12.2-14.9) 09/28/18 22:42 INR 1.00 (0.87-1.13) 09/28/18 22:42 Abnormal lab findings: Abnormal Labs 09/28/18 09/28/18 09/28/18 22:42 22:42 23:09 WBC 16.3 H MCV 78 L MCH 23 L RDW 19.8 H Sac % (Auto) 10.8 H Sac # 1.8 H Seg Neutrophils % 73.0 H Seg Neuts % (Manual) Lymphocytes % (Manual) Seg Neutrophils # 11.9 H Lymphocytes # (Manual) POC ABG pH 7.319 L POC ABG pCO2 56.7 H POC ABG pO2 65 L Sodium 146 H Carbon Dioxide BUN Creatinine 0.5 L Glucose 09/29/18 09/30/18 09/30/18 08:29 04:33 04:33 WBC MCV 78 L MCH 24 L RDW 20.3 H Sac % (Auto) Sac # Seg Neutrophils % Seg Neuts % (Manual) 95.0 H Lymphocytes % (Manual) 4.0 L Seg Neutrophils # Lymphocytes # (Manual) 0.3 L POC ABG pH 7.322 L POC ABG pCO2 55.2 H POC ABG pO2 74 L Sodium 147 H Carbon Dioxide 32 H BUN 20 H Creatinine 0.4 L Glucose 145 H 10/01/18 04:25 WBC MCV MCH RDW Sac % (Auto) Sac # Seg Neutrophils % Seg Neuts % (Manual) Lymphocytes % (Manual) Seg Neutrophils # Lymphocytes # (Manual) POC ABG pH POC ABG pCO2 POC ABG pO2 Sodium Carbon Dioxide BUN Creatinine 0.4 L Glucose 146 H Chest x-ray: image reviewed Allied health notes reviewed: RT ([place] in spine, bilateral alveolar interstitial infiltrates)
[2018-10-01] MEDS: PULMICORT IH SCH ×2 (09:39→19:27)
--- NOTE | 2018-10-01 12:13 | Consultation ---
History of Present Illness - Reason for Consult Consult date: 10/01/18 Reason for consult: Mental Health Evaluation Requesting physician: DAGMAR VILLALTA - Chief Complaint Chief complaint: "I am well" - History of Present Psychiatric Illness 58-year-old female who presented to the ER for SOB. This patient is known to me. Psychiatry was consulted to see the patient for medication mgmt. Today the patient was calm and cooperative during the assessment. She confirmed that she take Effexor throughout the day with a total dose of 300 mg PO along with Buspar 5 mg PO BID. She stated that her medications are managed by her PCP. She stated that her current medication regimen is "effective." She denies any previous suicide attempts and hospitalization for her mental health. She denies SI/HI's and AVH's. She denies erratic sleep and a poor appetite. She denies recreational drug use and alcohol consumption (etoh). Medications and Allergies Allergies Allergy/AdvReac Type Severity Reaction Status Date / Time hydromorphone [From Dilaudid] Allergy Unknown Verified 09/28/18 21:25 phenobarbital Allergy Unknown Verified 09/28/18 21:25 Home Medications Medication Instructions Recorded Confirmed Last Taken Type ALPRAZolam [Xanax TAB] 0.25 mg PO Q8H PRN #15 tablet 06/19/18 09/28/18 Unknown Rx Baclofen [Lioresal] 10 mg PO BID #60 tab 06/19/18 09/28/18 Unknown Rx busPIRone [Buspar] 5 mg PO BID #60 tab 06/19/18 09/28/18 Unknown Rx Pantoprazole [Protonix TAB] 40 mg PO QDAY #30 tab 08/19/18 09/28/18 Unknown Rx Amlodipine Besylate [Norvasc] 5 mg PO DAILY 09/16/18 09/28/18 Unknown History Budesonide [Pulmicort Respules] 0.5 mg IH Q12H 09/16/18 09/28/18 Unknown History HYDROcodone/APAP 5-325 [[place] 1 each PO BID PRN 09/16/18 09/28/18 Unknown History 5-325 mg TAB] Metoprolol Xl [Metoprolol 100 mg PO QDAY 09/16/18 09/28/18 Unknown History SUCCINATE ER TAB] Nitroglycerin [Nitrostat] 0.4 mg SL Q5M PRN 09/16/18 09/28/18 Unknown History Venlafaxine HCl [Venlafaxine] 100 mg PO TID 09/16/18 09/28/18 Unknown History Albuterol Sulfate [Proair 90 mcg IH Q4H PRN #1 pump 09/21/18 09/28/18 Unknown Rx Respiclick] Ipratropium/Albuterol Sulfate 1 ampul IH BID 30 Days ampul.neb 09/21/18 09/28/18 Unknown Rx [DUONEB *Not for PRN Use*] Prednisone [predniSONE 10 mg 10 mg PO .TAPER #1 tab.ds.pk 09/21/18 09/28/18 Unknown Rx (6-Day Pack, 21 Tabs)] Active Meds: Active Medications Acetaminophen (Tylenol) 650 mg PO Q4H PRN PRN Reason: Pain MILD(1-3)/Fever >100.5/PRAJAPATI Acetaminophen/Hydrocodone Bitart ([place] 5/325) 1 each PO Q6H PRN PRN Reason: Pain, Moderate (4-6) Albuterol (Proventil) 2.5 mg IH Q3HRT PRN PRN Reason: Shortness Of Breath Albuterol/Ipratropium (Duoneb *Not For Prn Use*) 1 ampul IH Q6HRT [facility] Last Admin: 10/01/18 09:39 Dose: 1 ampul Documented by: Alprazolam (Xanax) 0.25 mg PO Q8H PRN PRN Reason: Anxiety Last Admin: 09/29/18 23:16 Dose: 0.25 mg Documented by: Amlodipine Besylate (Norvasc) 5 mg PO DAILY [facility] Last Admin: 10/01/18 09:08 Dose: 5 mg Documented by: Baclofen (Lioresal) 10 mg PO BID [facility] Last Admin: 10/01/18 09:08 Dose: 10 mg Documented by: Budesonide (Pulmicort) 0.5 mg IH Q12HRT [facility] Last Admin: 10/01/18 09:39 Dose: 0.5 mg Documented by: Buspirone HCl (Buspar) 5 mg PO BID [facility] Last Admin: 10/01/18 09:08 Dose: 5 mg Documented by: Enoxaparin Sodium (Lovenox) 40 mg SUB-Q QDAY [facility] Last Admin: 10/01/18 09:07 Dose: 40 mg Documented by: Guaifenesin (Mucinex Er) 600 mg PO BID [facility] Last Admin: 10/01/18 09:06 Dose: 600 mg Documented by: Levofloxacin/Dextrose (Levaquin 500mg/100ml) 500 mg in 100 mls @ 100 mls/hr IV Q24HR [facility]; Protocol Last Admin: 10/01/18 09:05 Dose: 100 mls/hr Documented by: Methylprednisolone Sodium Succinate (Solu-Medrol) 80 mg IV Q8HR [facility] Last Admin: 10/01/18 05:09 Dose: 80 mg Documented by: Metoprolol Succinate (Toprol Xl) 100 mg PO QDAY [facility] Last Admin: 10/01/18 09:06 Dose: 100 mg Documented by: Nicotine (Habitrol) 14 mg TD QDAY [facility] Last Admin: 10/01/18 09:07 Dose: 14 mg Documented by: Nitroglycerin (Nitrostat) 0.4 mg SL Q5M PRN PRN Reason: Chest Pain Ondansetron HCl (Zofran) 4 mg IV Q8H PRN PRN Reason: Nausea And Vomiting Pantoprazole Sodium (Protonix) 40 mg PO QDAY [facility] Last Admin: 10/01/18 09:08 Dose: 40 mg Documented by: Sodium Chloride (Sodium Chloride Flush Syringe 10 Ml) 10 ml IV BID [facility] Last Admin: 10/01/18 09:09 Dose: 10 ml Documented by: Sodium Chloride (Sodium Chloride Flush Syringe 10 Ml) 10 ml IV PRN PRN PRN Reason: LINE FLUSH Venlafaxine HCl (Effexor) 25 mg PO TID [facility] Last Admin: 10/01/18 07:54 Dose: 25 mg Documented by: Venlafaxine HCl (Effexor) 75 mg PO TID [facility] Last Admin: 10/01/18 07:54 Dose: 75 mg Documented by: Past psychiatric history - Past Medical History Past Medical History: COPD Past Surgical History: No surgical history - past Psychiatric treatment and history psychiatric treatment history: Hx of depression/anxiety do. Denies a fam psy hx. - Social History Social history: lives with family Mental Status Exam - Vital signs Last Vital Signs Temp 98 F 10/01/18 12:00 Pulse 74 10/01/18 12:00 Resp 24 10/01/18 12:00 BP 115/51 10/01/18 12:00 Pulse Ox 93 10/01/18 12:00 - Exam Narrative exam: MSE: Appearance: calm, cooperative Behavior: regular eye contact Speech: regular rate and tone Mood: "better" Affect: congruent to mood Thought Process: linear Thought Content: denies SI/HI's and AVH's Motor Activity: sitting up in bed Cognition: A/O x 3 Insight: appropriate Judgment: appropriate Results Result Diagrams: 09/30/18 04:33 10/01/18 04:25 Abnormal lab results 10/01/18 Range/Units 04:25 Creatinine 0.4 L (0.7-1.2) mg/dL Glucose 146 H (65-100) mg/dL All other labs normal. Assessment and Plan Assessment and plan: Impression: Hx of Depression/Anxiety DO. Hx of Opioid Use DO. Today the patient was calm and cooperative during the assessment. Recommendation/Plan: Conitnue home medications Effexor 300 mg PO throughout the day for depression and Buspar 5 mg PO BID for anxiety. Discussed possible suicidality/medication induced shayne with the patient reference Effexor with the patient, she verbalized understanding. Psy sign off. Dispo: The patient can follow up with PCP for psy medication mgmt. Will staff with Dr Rigo Ramirez.
[2018-10-01] MEDS: NORCO 5/325 PO PRN ×2 (13:28→19:50)
--- NOTE | 2018-10-01 13:56 | XRay Report ---
CHEST 1 VIEW INDICATION: Risks of breath starting earlier today. COMPARISON: 09/15/2018 FINDINGS: Support devices: None. Heart: Within normal limits. Lungs/Pleura: Prominent diffuse interstitial lung markings may at least in part be chronic. Additional findings: Posterior spinal construct remains in place without complication. IMPRESSION: 1. No acute findings. Signer Name: Geoff Lyman MD Signed: 09/29/2018 12:27 AM Workstation Name: [id number]
[2018-10-02] MEDS: DUONEB *Not for PRN Use IH SCH ×3 (01:09→13:45)
[2018-10-02] MEDS: NORCO 5/325 PO PRN ×2 (01:45→08:44)
[2018-10-02] MEDS: SOLU-Medrol IV SCH ×2 (05:20→15:46)
[2018-10-02 05:50] LABS: BUN/Creatinine Ratio 38; Blood Urea Nitrogen 15 mg/dL (7-17); Calcium 9.1 mg/dL (8.4-10.2); Hemolysis Index 6
[2018-10-02] MEDS: PULMICORT IH SCH (07:20)
[2018-10-02 08:20] VITALS: BP 163/73
[2018-10-02] MEDS: EFFEXOR PO SCH ×4 (08:40→15:47)
[2018-10-02] MEDS: LEVAQUIN 500MG/100ML 500 MG/100 ML BAG IV SCH (09:02)
[2018-10-02] MEDS: HABITROL TD SCH (09:03)
[2018-10-02] MEDS: MUCINEX ER PO SCH (09:03)
[2018-10-02] MEDS: LIORESAL PO SCH (09:03)
[2018-10-02] MEDS: BUSPAR PO SCH (09:03)
[2018-10-02] MEDS: PROTONIX PO SCH (09:03)
[2018-10-02] MEDS: TOPROL XL PO SCH (09:03)
[2018-10-02] MEDS: NORVASC PO SCH (09:04)
[2018-10-02] MEDS: LOVENOX SUB-Q SCH (09:05)
--- NOTE | 2018-10-02 09:06 | Progress Note ---
Hospitalist Physical - Constitutional Vitals: Temp Pulse Resp BP Pulse Ox 97.7 F 85 16 163/73 95 10/02/18 07:16 10/02/18 07:16 10/02/18 07:16 10/02/18 07:16 10/02/18 07:16 Results - Labs CBC & Chem 7: 09/30/18 04:33 10/02/18 04:36 Labs: Laboratory Last Values WBC 6.8 K/mm3 (4.5-11.0) 09/30/18 04:33 RBC 4.39 M/mm3 (3.65-5.03) 09/30/18 04:33 Hgb 10.4 gm/dl (10.1-14.3) 09/30/18 04:33 Hct 34.2 % (30.3-42.9) 09/30/18 04:33 MCV 78 fl (79-97) L 09/30/18 04:33 MCH 24 pg (28-32) L 09/30/18 04:33 MCHC 30 % (30-34) 09/30/18 04:33 RDW 20.3 % (13.2-15.2) H 09/30/18 04:33 Plt Count 194 K/mm3 (140-440) 09/30/18 04:33 Lymph % (Auto) 14.8 % (13.4-35.0) 09/28/18 22:42 [place] % (Auto) 10.8 % (0.0-7.3) H 09/28/18 22:42 Eos % (Auto) 1.1 % (0.0-4.3) 09/28/18 22:42 Baso % (Auto) 0.3 % (0.0-1.8) 09/28/18 22:42 Lymph # 2.4 K/mm3 (1.2-5.4) 09/28/18 22:42 [place] # 1.8 K/mm3 (0.0-0.8) H 09/28/18 22:42 Eos # 0.2 K/mm3 (0.0-0.4) 09/28/18 22:42 Baso # 0.1 K/mm3 (0.0-0.1) 09/28/18 22:42 Add Manual Diff Complete 09/30/18 04:33 Total Counted 100 09/30/18 04:33 Seg Neutrophils % First Assist 09/30/18 04:33 Seg Neuts % (Manual) 95.0 % (40.0-70.0) H 09/30/18 04:33 0 % 09/30/18 04:33 4.0 % (13.4-35.0) L 09/30/18 04:33 Reactive Lymphs % (Man) 0 % 09/30/18 04:33 1.0 % (0.0-7.3) 09/30/18 04:33 0 % (0.0-4.3) 09/30/18 04:33 0 % (0.0-1.8) 09/30/18 04:33 0 % 09/30/18 04:33 0 % 09/30/18 04:33 0 % 09/30/18 04:33 0 % 09/30/18 04:33 Nucleated RBC % Not Reportable 09/30/18 04:33 Seg Neutrophils # 11.9 K/mm3 (1.8-7.7) H 09/28/18 22:42 Seg Neutrophils # Man 6.5 K/mm3 (1.8-7.7) 09/30/18 04:33 Band Neutrophils # 0.0 K/mm3 09/30/18 04:33 0.3 K/mm3 (1.2-5.4) L 09/30/18 04:33 Abs React Lymphs (Man) 0.0 K/mm3 09/30/18 04:33 0.1 K/mm3 (0.0-0.8) 09/30/18 04:33 0.0 K/mm3 (0.0-0.4) 09/30/18 04:33 0.0 K/mm3 (0.0-0.1) 09/30/18 04:33 0.0 K/mm3 09/30/18 04:33 0.0 K/mm3 09/30/18 04:33 0.0 K/mm3 09/30/18 04:33 Blast Cells # 0.0 K/mm3 09/30/18 04:33 WBC Morphology Not Reportable 09/30/18 04:33 Hypersegmented Neuts Not Reportable 09/30/18 04:33 Hyposegmented Neuts Not Reportable 09/30/18 04:33 Hypogranular Neuts Not Reportable 09/30/18 04:33 Not Reportable 09/30/18 04:33 Not Reportable 09/30/18 04:33 Not Reportable 09/30/18 04:33 Not Reportable 09/30/18 04:33 Not Reportable 09/30/18 04:33 Not Reportable 09/30/18 04:33 Consistent w auto 09/30/18 04:33 Not Reportable 09/30/18 04:33 Plt Clumps, EDTA Not Reportable 09/30/18 04:33 Not Reportable 09/30/18 04:33 Not Reportable 09/30/18 04:33 Not Reportable 09/30/18 04:33 Plt Morphology Comment Not Reportable 09/30/18 04:33 RBC Morphology Not Reportable 09/30/18 04:33 Dimorphic RBCs Not Reportable 09/30/18 04:33 Not Reportable 09/30/18 04:33 1+ 09/30/18 04:33 Few 09/30/18 04:33 1+ 09/30/18 04:33 Not Reportable 09/30/18 04:33 Few 09/30/18 04:33 Not Reportable 09/30/18 04:33 Not Reportable 09/30/18 04:33 Not Reportable 09/30/18 04:33 Not Reportable 09/30/18 04:33 Not Reportable 09/30/18 04:33 Rare 09/30/18 04:33 Not Reportable 09/30/18 04:33 Not Reportable 09/30/18 04:33 Not Reportable 09/30/18 04:33 Not Reportable 09/30/18 04:33 Not Reportable 09/30/18 04:33 Not Reportable 09/30/18 04:33 Not Reportable 09/30/18 04:33 Acanthocytes (Spur) Not Reportable 09/30/18 04:33 Rouleaux Not Reportable 09/30/18 04:33 Not Reportable 09/30/18 04:33 Not Reportable 09/30/18 04:33 Not Reportable 09/30/18 04:33 Not Reportable 09/30/18 04:33 Hem Pathologist Commnt No 09/30/18 04:33 PT 12.9 Sec. (12.2-14.9) 09/28/18 22:42 INR 1.00 (0.87-1.13) 09/28/18 22:42 APTT 29.2 Sec. (24.2-36.6) 09/28/18 22:42 POC ABG pH 7.322 (7.35-7.45) L 09/29/18 08:29 POC ABG pCO2 55.2 (35-45) H 09/29/18 08:29 POC ABG pO2 74 (80-105) L 09/29/18 08:29 POC ABG HCO3 28.6 (22-26 mml/L) 09/29/18 08:29 POC ABG Total CO2 30 (23-27mmol/L) 09/29/18 08:29 POC ABG O2 Sat 93 09/29/18 08:29 POC ABG Base Excess 2 ((-2) - (+3)mmol/L) 09/29/18 08:29 36 % 09/29/18 08:29 Sodium 140 mmol/L (137-145) 10/02/18 04:36 Potassium 4.3 mmol/L (3.6-5.0) 10/02/18 04:36 Chloride 101.7 mmol/L (98-107) 10/02/18 04:36 Carbon Dioxide 28 mmol/L (22-30) 10/02/18 04:36 15 mmol/L 10/02/18 04:36 BUN 15 mg/dL (7-17) 10/02/18 04:36 0.4 mg/dL (0.7-1.2) L 10/02/18 04:36 Estimated GFR > 60 ml/min 10/02/18 04:36 38 % 10/02/18 04:36 Glucose 119 mg/dL (65-100) H 10/02/18 04:36 Calcium 9.1 mg/dL (8.4-10.2) 10/02/18 04:36 < 0.010 ng/mL (0.00-0.029) 09/28/18 22:42 NT-Pro-B Natriuret Pep 776.7 pg/mL (0-900) 09/28/18 22:42 Active Medications - Current Medications Current Medications: Generic Name Dose Route Start Last Admin Trade Name Freq PRN Reason Stop Dose Admin Acetaminophen 650 mg 09/29/18 02:01 Tylenol PO Q4H PRN Pain MILD(1-3)/Fever >100.5/PRAJAPATI Acetaminophen/Hydrocodone Bitart 1 each 10/01/18 10:30 10/02/18 08:44 [place] 5/325 PO 1 each Q6H PRN Administration Pain, Moderate (4-6) Albuterol 2.5 mg 09/29/18 02:01 Proventil IH Q3HRT PRN Shortness Of Breath Albuterol/Ipratropium 1 ampul 09/29/18 02:00 10/02/18 07:20 Duoneb *Not For Prn Use* IH 1 ampul Q6HRT [facility] Administration Amlodipine Besylate 5 mg 09/29/18 10:00 10/01/18 09:08 Norvasc PO 5 mg DAILY [facility] Administration Baclofen 10 mg 09/29/18 10:00 10/01/18 22:06 Lioresal PO 10 mg BID [facility] Administration Budesonide 0.5 mg 09/29/18 08:00 10/02/18 07:20 Pulmicort IH 0.5 mg Q12HRT [facility] Administration Buspirone HCl 5 mg 09/29/18 10:00 10/01/18 22:57 Buspar PO 5 mg BID [facility] Administration Enoxaparin Sodium 40 mg 09/29/18 10:00 10/01/18 09:07 Lovenox SUB-Q 40 mg QDAY [facility] Administration Guaifenesin 600 mg 09/29/18 10:00 10/01/18 22:06 Mucinex Er PO 600 mg BID [facility] Administration Levofloxacin/Dextrose 500 mg in 100 mls @ 100 mls/hr 09/29/18 10:00 10/01/18 09:05 Levaquin 500mg/100ml IV 100 mls/hr Q24HR [facility] Administration Protocol Methylprednisolone Sodium Succinate 80 mg 09/29/18 06:00 10/02/18 05:20 Solu-Medrol IV 80 mg Q8HR [facility] Administration Metoprolol Succinate 100 mg 09/29/18 10:00 10/01/18 09:06 Toprol Xl PO 100 mg QDAY [facility] Administration Nicotine 14 mg 09/29/18 10:00 10/01/18 09:07 Habitrol TD 14 mg QDAY [facility] Administration Nitroglycerin 0.4 mg 09/29/18 02:04 Nitrostat SL Q5M PRN Chest Pain Ondansetron HCl 4 mg 09/29/18 02:01 Zofran IV Q8H PRN Nausea And Vomiting Pantoprazole Sodium 40 mg 09/29/18 10:00 10/01/18 09:08 Protonix PO 40 mg QDAY [facility] Administration Sodium Chloride 10 ml 09/29/18 10:00 10/01/18 22:07 Sodium Chloride Flush Syringe 10 Ml IV 10 ml BID DOMINICK Administration Sodium Chloride 10 ml 09/29/18 02:01 Sodium Chloride Flush Syringe 10 Ml IV PRN PRN LINE FLUSH Venlafaxine HCl 25 mg 09/29/18 08:00 10/01/18 22:58 Effexor PO 25 mg TID DOMINICK Administration Venlafaxine HCl 75 mg 09/29/18 08:00 10/02/18 08:40 Effexor PO 75 mg TID DOMINICK Administration Nutrition/Malnutrition Assess - Dietary Evaluation Nutrition/Malnutrition Findings: Nutrition Notes Start: 09/30/18 13:56 Freq: Status: Active Protocol: Document 10/01/18 14:36 RM (Rec: 10/01/18 14:41 RM [id number]) Nutrition Notes Initial or Follow up Brief Note Current Diet Cardiac w/Ensure Enlive Subjective/Other Information Screened for malnutrition again. Noted lunch at bedside w/most eaten. Noted preferences. Nutrition Intervention Add Supplement/Snack (indicate name/kcal D/C Ensure Enlive /protein ) Follow-Up By: 10/05/18 Additional Comments Follow for stable intakes
[2018-10-02] MEDS: SODIUM CHLORIDE FLUSH SYRINGE 10 ML IV SCH (10:01)
--- NOTE | 2018-10-02 13:40 | Progress Note ---
Assessment and Plan Acute on chronic hypoxic with hypercapnia respiratory failure COPD exacerbation Tobacco use disorder/Nicotine dependence Hypertension Anxiety Depression History of coronary artery disease GERD Subjective Date of service: 10/02/18 Objective Vital Signs - 12hr 10/02/18 10/02/18 10/02/18 04:47 04:48 07:16 Temperature 98.0 F 97.7 F Pulse Rate 85 85 Pulse Rate [ Throughout] Respiratory 20 16 Rate Respiratory Rate [ Throughout] Blood Pressure 138/82 163/73 O2 Sat by Pulse 92 95 Oximetry 10/02/18 10/02/18 10/02/18 07:20 09:03 09:04 Temperature Pulse Rate 85 85 Pulse Rate [ 77 Throughout] Respiratory Rate Respiratory 18 Rate [ Throughout] Blood Pressure 163/73 163/73 O2 Sat by Pulse 95 Oximetry 10/02/18 10:00 Temperature Pulse Rate 80 Pulse Rate [ Throughout] Respiratory 22 Rate Respiratory Rate [ Throughout] Blood Pressure O2 Sat by Pulse Oximetry Constitutional: no acute distress, alert, other (kyphotic) Eyes: non-icteric ENT: oropharynx moist Neck: supple, no JVD Effort: mildly labored Ascultation: Bilateral: diminished breath sounds Cardiovascular: regular rate and rhythm Gastrointestinal: normoactive bowel sounds, soft Integumentary: normal Extremities: no cyanosis, no edema Neurologic: normal mental status, non-focal exam, pupils equal and round Psychiatric: anxious CBC and BMP: 09/30/18 04:33 10/02/18 04:36 ABG, PT/INR, D-dimer: ABG POC ABG pH 7.322 (7.35-7.45) L 09/29/18 08:29 POC ABG pCO2 55.2 (35-45) H 09/29/18 08:29 POC ABG pO2 74 (80-105) L 09/29/18 08:29 POC ABG HCO3 28.6 (22-26 mml/L) 09/29/18 08:29 POC ABG Total CO2 30 (23-27mmol/L) 09/29/18 08:29 POC ABG O2 Sat 93 09/29/18 08:29 PT/INR, D-dimer PT 12.9 Sec. (12.2-14.9) 09/28/18 22:42 INR 1.00 (0.87-1.13) 09/28/18 22:42 Abnormal lab findings: Abnormal Labs 09/28/18 09/28/18 09/28/18 22:42 22:42 23:09 WBC 16.3 H MCV 78 L MCH 23 L RDW 19.8 H [place] % (Auto) 10.8 H [place] # 1.8 H Seg Neutrophils % 73.0 H Seg Neuts % (Manual) Lymphocytes % (Manual) Seg Neutrophils # 11.9 H Lymphocytes # (Manual) POC ABG pH 7.319 L POC ABG pCO2 56.7 H POC ABG pO2 65 L Sodium 146 H Carbon Dioxide BUN Creatinine 0.5 L Glucose 09/29/18 09/30/18 09/30/18 08:29 04:33 04:33 WBC MCV 78 L MCH 24 L RDW 20.3 H [place] % (Auto) [place] # Seg Neutrophils % Seg Neuts % (Manual) 95.0 H Lymphocytes % (Manual) 4.0 L Seg Neutrophils # Lymphocytes # (Manual) 0.3 L POC ABG pH 7.322 L POC ABG pCO2 55.2 H POC ABG pO2 74 L Sodium 147 H Carbon Dioxide 32 H BUN 20 H Creatinine 0.4 L Glucose 145 H 10/01/18 10/02/18 04:25 04:36 WBC MCV MCH RDW [place] % (Auto) [place] # Seg Neutrophils % Seg Neuts % (Manual) Lymphocytes % (Manual) Seg Neutrophils # Lymphocytes # (Manual) POC ABG pH POC ABG pCO2 POC ABG pO2 Sodium Carbon Dioxide BUN Creatinine 0.4 L 0.4 L Glucose 146 H 119 H Allied health notes reviewed: RT (Harware in spine, bilateral alveolar interstitial infiltrates)
--- NOTE | 2018-10-02 14:38 | Discharge Summary ---
Providers - Providers Date of Admission: 09/29/18 01:15 Date of discharge: 10/02/18 Attending physician: MATTEO GARCIA 09/29/18 01:58 Consult to Physician [CONS] Routine Comment: Consulting Provider: REYNALDO ALVARADO Physician Instructions: Reason For Exam: COPD AE, est pt 09/29/18 02:58 Consult to Mental Health [CONS] Routine Reason For Exam: hx depression and anxiety, combative at this time Place consult to:: [facility] Notified:: daryl Phone number called:: [phone] Was contact made?: Yes If yes, spoke with:: daryl Time called:: 03:24 Primary care physician: FLORESITA BHATTI Hospitalization Condition: Fair Disposition: DC-01 TO HOME OR SELFCARE Exam - Constitutional Vitals: Temp Pulse Resp BP Pulse Ox 97.7 F 77 20 163/73 95 10/02/18 07:16 10/02/18 13:45 10/02/18 13:45 10/02/18 09:04 10/02/18 07:20 Plan Activity: advance as tolerated Diet: low fat, low cholesterol, low salt Plan of Treatment: 1.Follow up with PCP in 3-5 days. 2.Follow up with Dr. Bhatti in 3-5 days 3.Continue home Oxygen 24 hrs a day Assessment: 1.Acute on chronic respiratory failure due to COPD exacerbation Follow up with: FLORESITA BHATTI MD [Primary Care Provider] - 3-5 Days
== END 2018-10-02 16:35 | disposition home health service (06) | DRG 189 ==
LOC: ED 21:07 → 3A 09-29 01:15 → IMCU 09-29 03:16 → 4A 10-01 17:15
PROVIDERS: ADMIT Internal Medicine; ATTEND Internal Medicine
PROC: 4A033R1 Measurement of Arterial Saturation, Peripheral, Percutaneous Approach (ICD-10-PCS; principal; 2018-09-29)
DX: J96.21 Acute and chronic respiratory failure with hypoxia (principal); J44.1 Chronic obstructive pulmonary disease with (acute) exacerbation; J96.22 Acute and chronic respiratory failure with hypercapnia; I10 Essential (primary) hypertension; K21.9 Gastro-esophageal reflux disease without esophagitis; F32.9 Major depressive disorder, single episode, unspecified; F41.9 Anxiety disorder, unspecified; I25.10 Atherosclerotic heart disease of native coronary artery without angina pectoris; F17.210 Nicotine dependence, cigarettes, uncomplicated; Z88.5 Allergy status to narcotic agent; Z79.899 Other long term (current) drug therapy; Z71.6 Tobacco abuse counseling; Z95.5 Presence of coronary angioplasty implant and graft; Z99.81 Dependence on supplemental oxygen; I25.2 Old myocardial infarction; Z90.49 Acquired absence of other specified parts of digestive tract
CPT/HCPCS: 36415; 36600; 71045; 80048; 82803; 83880; 84484; 85007; 85025; 85610; 85730; 93005; 93010; 94640; 94644; 94760; 99406; G0378; J1650; J1956; J2920; J2930

== ENCOUNTER 2018-11-14 18:36 | Inpatient (IN) | payer MEDICARE ==
[2018-11-14] MEDS ORDERED: SODIUM CHLORIDE 0.9% 500 ML 500 ML IV ONE ×3 (19:12→22:03)
[2018-11-14] MEDS ORDERED: IPRATROPIUM 0.02% NEBU 2.5 ML IH ONE (19:12)
[2018-11-14] MEDS ORDERED: ALBUTEROL 2.5 MG/3 ML NEBU IH ONE (19:12)
[2018-11-14] MEDS ORDERED: LIP THERAPY VASELINE TP PRN (19:14)
[2018-11-14] MEDS ORDERED: MINERAL OIL/PETROLATUM, WHITE OPHTH OINT 3.5 GM OU PRN (19:14)
--- NOTE | 2018-11-14 19:19 | Emergency Department Report ---
ED General Adult HPI - General Chief complaint: Abdominal Pain Stated complaint: KAYA Time Seen by Provider: 11/14/18 19:02 Source: EMS (verbal report received from EMS. EMS documentation not available at time of chart dictation ), RN notes reviewed, old records reviewed Mode of arrival: Stretcher Limitations: Altered Mental Status, Physical Limitation - History of Present Illness Initial comments: This is a 58-year-old female. I have evaluated this patient in the past. She is an ongoing smoker, history of GERD, COPD, chronic respiratory failure, heart disease, stent, hypertension, anxiety. The patient is brought to the hospital by EMS. The patient is altered, and all the history is obtained from verbal report from nursing team, and EMS staff. Apparently, the patient called for shortness of breath. Patient was saturating the 60s in the field. EMS gave the patient albuterol, steroids, and magnesium in the field. They reported a normal Accu-Chek. Upon my initial evaluation, the patient is obtunded, slumped over, on a BiPAP. She is completely altered, and not protecting her airway. The patient is intubated emergently for airway protection. No additional history is available at this time. Of note, patient's been admitted to this hospital in the past for respiratory failure and COPD exacerbation. -: unknown - Related Data Home Medications Medication Instructions Recorded Confirmed Last Taken Amlodipine Besylate [Norvasc] 5 mg PO DAILY 09/16/18 11/14/18 Unknown HYDROcodone/APAP 5-325 [[place] 1 each PO BID PRN 09/16/18 11/14/18 Unknown 5-325 mg TAB] Metoprolol Xl [Metoprolol 100 mg PO QDAY 09/16/18 11/14/18 Unknown SUCCINATE ER TAB] Nitroglycerin [Nitrostat] 0.4 mg SL Q5M PRN 09/16/18 11/14/18 Unknown Venlafaxine HCl [Venlafaxine] 100 mg PO TID 09/16/18 11/14/18 Unknown Previous Rx's Medication Instructions Recorded Last Taken Type ALPRAZolam [Xanax TAB] 0.25 mg PO Q8H PRN #15 tablet 06/19/18 Unknown Rx Baclofen [Lioresal] 10 mg PO BID #60 tab 06/19/18 Unknown Rx busPIRone [Buspar] 5 mg PO BID #60 tab 06/19/18 Unknown Rx Pantoprazole [Protonix TAB] 40 mg PO QDAY #30 tab 08/19/18 Unknown Rx Albuterol Sulfate [Proair 90 mcg IH Q4H PRN #1 pump 09/21/18 Unknown Rx Respiclick] Allergies Allergy/AdvReac Type Severity Reaction Status Date / Time hydromorphone [From Dilaudid] Allergy Unknown Verified 09/28/18 21:25 phenobarbital Allergy Unknown Verified 09/28/18 21:25 ED Review of Systems ROS: Stated complaint: KAYA Other details as noted in HPI Comment: Unobtainable due to pts medical conditions ED Past Medical Hx - Past Medical History Hx Hypertension: Yes Hx Heart Attack/AMI: Yes Hx Congestive Heart Failure: No (patient denies) Hx Diabetes: No Hx Deep Vein Thrombosis: No Hx GERD: Yes Hx Liver Disease: Yes Hx Psychiatric Treatment: Yes (depression and anxiety) Hx Asthma: No Hx COPD: Yes Hx HIV: No - Surgical History Hx Coronary Stent: Yes (2016) Hx Pacemaker: No Hx Internal Defibrillator: No Hx Appendectomy: Yes Additional Surgical History: heart stents, Back surgery - Social History Smoking Status: Current Every Day Smoker - Medications Home Medications: Home Medications Medication Instructions Recorded Confirmed Last Taken Type ALPRAZolam [Xanax TAB] 0.25 mg PO Q8H PRN #15 tablet 06/19/18 11/14/18 Unknown Rx Baclofen [Lioresal] 10 mg PO BID #60 tab 06/19/18 11/14/18 Unknown Rx busPIRone [Buspar] 5 mg PO BID #60 tab 06/19/18 11/14/18 Unknown Rx Pantoprazole [Protonix TAB] 40 mg PO QDAY #30 tab 08/19/18 11/14/18 Unknown Rx Amlodipine Besylate [Norvasc] 5 mg PO DAILY 09/16/18 11/14/18 Unknown History HYDROcodone/APAP 5-325 [[place] 1 each PO BID PRN 09/16/18 11/14/18 Unknown History 5-325 mg TAB] Metoprolol Xl [Metoprolol 100 mg PO QDAY 09/16/18 11/14/18 Unknown History SUCCINATE ER TAB] Nitroglycerin [Nitrostat] 0.4 mg SL Q5M PRN 09/16/18 11/14/18 Unknown History Venlafaxine HCl [Venlafaxine] 100 mg PO TID 09/16/18 11/14/18 Unknown History Albuterol Sulfate [Proair 90 mcg IH Q4H PRN #1 pump 09/21/18 11/14/18 Unknown Rx Respiclick] ED Physical Exam - General Limitations: Altered Mental Status General appearance: obtunded - Head Head exam: Present: atraumatic - Eye Eye exam: Present: normal appearance - ENT ENT exam: Present: mucous membranes dry, normal external ear exam - Neck Neck exam: Present: normal inspection. Absent: tenderness, meningismus - Respiratory Respiratory exam: Present: respiratory distress, rhonchi, decreased breath sounds - Cardiovascular Cardiovascular Exam: Present: regular rate, normal rhythm, normal heart sounds. Absent: bradycardia, tachycardia, irregular rhythm, systolic murmur, diastolic murmur - GI/Abdominal GI/Abdominal exam: Present: soft. Absent: distended, tenderness, guarding, rigid, pulsatile mass - Rectal Rectal exam: Present: normal inspection, normal rectal tone, other (chaperoned by SHANICE Macias) - Extremities Exam Extremities exam: Present: other (2+ pulses noted in the bilateral upper, lower extremities. There is no long bone tenderness. Musculoskeletal compartments are soft. The pelvis is stable.). Absent: tenderness, joint swelling, calf tenderness - Back Exam Back exam: Absent: tenderness, CVA tenderness (R), CVA tenderness (L), muscle spasm, paraspinal tenderness, vertebral tenderness - Neurological Exam Neurological exam: Present: altered, other (prior to intubation, patient makes nonsensical sounds, and is moving 4 extremities spontaneously) - Skin Skin exam: Present: dry ED Course Vital Signs 11/14/18 11/14/18 11/14/18 19:00 19:15 19:30 Temperature Pulse Rate 83 74 74 Respiratory 15 20 Rate Blood Pressure 122/54 85/39 88/39 Blood Pressure [Left] O2 Sat by Pulse 100 94 94 Oximetry 11/14/18 11/14/18 11/14/18 19:42 20:01 20:31 Temperature 97.6 F Pulse Rate 74 69 69 Respiratory 20 20 20 Rate Blood Pressure 88/39 98/43 87/35 Blood Pressure 88/39 [Left] O2 Sat by Pulse 95 91 95 Oximetry 11/14/18 11/14/18 11/14/18 20:45 21:00 21:27 Temperature Pulse Rate 66 66 Respiratory 20 20 Rate Blood Pressure 87/35 82/37 Blood Pressure 80/50 [Left] O2 Sat by Pulse 100 100 Oximetry 11/14/18 11/14/18 11/14/18 21:31 21:44 21:45 Temperature Pulse Rate 72 69 69 Respiratory 20 20 19 Rate Blood Pressure 81/32 110/59 Blood Pressure 98/55 [Left] O2 Sat by Pulse 99 99 96 Oximetry 11/14/18 11/14/18 21:49 22:00 Temperature Pulse Rate 74 76 Respiratory 20 Rate Blood Pressure 109/54 Blood Pressure 110/59 [Left] O2 Sat by Pulse 97 Oximetry - Reevaluation(s) Reevaluation #1: 11/14/18 20:56 Dr Mitchell to admit - Consultations Consultation #1: 11/14/18 20:12 Discussed with critical care physician, Dr. Reich, who agrees with placement into the intensive care unit. - Intubation Time Out Performed: No (emergent) Sedative: Ketamine Mg Given: 200 Paralytic: Rocuronium Mg Given: 100 Laryngoscope: Mahamed Size: 4 ET Tube Size: 7.5 Tube Secured Depth (cm): 23 Tube Secured Location: teeth Tube Placement Confirmation: visualized tube passing t, equal breath sounds bilat, no breath sounds over epi, confirmation by capnometr Patient Tolerated Procedure: well Additional Comments: Prior to intubation, patient placed on nasal cannula, 15 m/m, receives simultaneous [id number]-swli ventilation. Initially hypoxic to the mid 80s, patient with bagging improves to 97%. Direct laryngoscopy performed, after ketamine induction, and a 7.5 endotracheal tube was inserted, with no difficulty. It is inserted under direct visualization, passing through the cords, tube placement also confirmed through condensation, and end tidal capnography, and x-ray of the chest ED Medical Decision Making - Lab Data Result diagrams: 11/14/18 19:39 11/14/18 19:39 Vital Signs 11/14/18 19:15 Pulse Rate 74 Blood Pressure 85/39 O2 Sat by Pulse 94 Oximetry Vital Signs 11/14/18 11/14/18 11/14/18 19:00 19:15 19:30 Temperature Pulse Rate 83 74 74 Respiratory 15 20 Rate Blood Pressure 122/54 85/39 88/39 Blood Pressure [Left] O2 Sat by Pulse 100 94 94 Oximetry 11/14/18 11/14/18 11/14/18 19:42 20:01 20:31 Temperature 97.6 F Pulse Rate 74 69 69 Respiratory 20 20 20 Rate Blood Pressure 88/39 98/43 87/35 Blood Pressure 88/39 [Left] O2 Sat by Pulse 95 91 95 Oximetry 11/14/18 20:45 Temperature Pulse Rate 66 Respiratory 20 Rate Blood Pressure 87/35 Blood Pressure [Left] O2 Sat by Pulse 100 Oximetry Lab Results 11/14/18 11/14/18 11/14/18 Range/Units 18:59 19:39 19:39 WBC (4.5-11.0) K/mm3 RBC (3.65-5.03) M/mm3 Hgb (10.1-14.3) gm/dl Hct (30.3-42.9) % MCV (79-97) fl MCH (28-32) pg MCHC (30-34) % RDW (13.2-15.2) % Plt Count (140-440) K/mm3 Lymph % (Auto) (13.4-35.0) % [place] % (Auto) (0.0-7.3) % Eos % (Auto) (0.0-4.3) % Baso % (Auto) (0.0-1.8) % Lymph # (1.2-5.4) K/mm3 [place] # (0.0-0.8) K/mm3 Eos # (0.0-0.4) K/mm3 Baso # (0.0-0.1) K/mm3 Seg Neutrophils % (40.0-70.0) % Seg Neutrophils # (1.8-7.7) K/mm3 PT 14.1 (12.2-14.9) Sec. INR 1.12 (0.87-1.13) Sodium 147 H (137-145) mmol/L Potassium 4.1 (3.6-5.0) mmol/L Chloride 104.4 (98-107) mmol/L Carbon Dioxide 35 H (22-30) mmol/L Anion Gap 12 mmol/L BUN 9 (7-17) mg/dL Creatinine 0.4 L (0.7-1.2) mg/dL Estimated GFR > 60 ml/min BUN/Creatinine Ratio 23 % Glucose 121 H (65-100) mg/dL POC Glucose 129 H (70-105) Lactic Acid (0.7-2.0) mmol/L Calcium 8.4 (8.4-10.2) mg/dL Total Bilirubin 0.20 (0.1-1.2) mg/dL AST 13 (5-40) units/L ALT 6 L (7-56) units/L Alkaline Phosphatase 85 (35-129) units/L Total Protein 6.2 L (6.3-8.2) g/dL Albumin 3.4 L (3.9-5) g/dL Albumin/Globulin Ratio 1.2 % 11/14/18 11/14/18 Range/Units 19:39 19:39 WBC 8.5 (4.5-11.0) K/mm3 RBC 5.30 H (3.65-5.03) M/mm3 Hgb 11.9 (10.1-14.3) gm/dl Hct 41.7 (30.3-42.9) % MCV 79 (79-97) fl MCH 23 L (28-32) pg MCHC 29 L (30-34) % RDW 20.5 H (13.2-15.2) % Plt Count 132 L (140-440) K/mm3 Lymph % (Auto) 7.2 L (13.4-35.0) % [place] % (Auto) 4.6 (0.0-7.3) % Eos % (Auto) 0.5 (0.0-4.3) % Baso % (Auto) 0.6 (0.0-1.8) % Lymph # 0.6 L (1.2-5.4) K/mm3 [place] # 0.4 (0.0-0.8) K/mm3 Eos # 0.0 (0.0-0.4) K/mm3 Baso # 0.0 (0.0-0.1) K/mm3 Seg Neutrophils % 87.1 H (40.0-70.0) % Seg Neutrophils # 7.4 (1.8-7.7) K/mm3 PT (12.2-14.9) Sec. INR (0.87-1.13) Sodium (137-145) mmol/L Potassium (3.6-5.0) mmol/L Chloride (98-107) mmol/L Carbon Dioxide (22-30) mmol/L Anion Gap mmol/L BUN (7-17) mg/dL Creatinine (0.7-1.2) mg/dL Estimated GFR ml/min BUN/Creatinine Ratio % Glucose (65-100) mg/dL POC Glucose (70-105) Lactic Acid 0.80 (0.7-2.0) mmol/L Calcium (8.4-10.2) mg/dL Total Bilirubin (0.1-1.2) mg/dL AST (5-40) units/L ALT (7-56) units/L Alkaline Phosphatase (35-129) units/L Total Protein (6.3-8.2) g/dL Albumin (3.9-5) g/dL Albumin/Globulin Ratio % - EKG Data -: EKG Interpreted by Me EKG shows normal: sinus rhythm Rate: normal - EKG Data 11/14/18 19:56 This EKG shows a sinus rhythm, 70 bpm, normal axis, QTC 431 ms, there is low voltage, this EKG is abnormal, the EKG is not consistent with ST elevation myocardial infarction. This EKG today appears to be unchanged from prior EKG from September 2018. - Radiology Data Radiology results: report reviewed, image reviewed interpreted by me: X-ray of the chest shows appropriate placement of endotracheal tube, and spinal hardware Print Report Referring Physician: MATTEO GONZALEZ Patient Name: GARETT GARCIA Date of : 1960 Sex: Female Report Date: 2018-11-14 Report Status: Finalized Findings [address] [address] XRay Report Signed Patient: GARETT GARCIA MR#: [id number] : 1960 Acct:[id number] Age/Sex: 58 / F ADM Date: 11/14/18 Loc: ED Attending Dr: Ordering Physician: MATTEO GONZALEZ MD Date of Service: 11/14/18 Procedure(s): XR chest 1V ap Accession Number(s): [id number] cc: MATTEO GONZALEZ MD Fluoro Time In Minutes: CHEST 1 VIEW 7:26 PM INDICATION / CLINICAL INFORMATION: ETT placement, NG PLACEMENT. Respiratory failure. COMPARISON: 09/28/2018. FINDINGS: SUPPORT DEVICES: There is a new endotracheal tube with the tip 2.2 cm above the carlos manuel. There is a nasogastric tube with the tip overlying the distal stomach. HEART / MEDIASTINUM: The heart is mildly enlarged with a left ventricular con figuration. LUNGS / PLEURA: There is mild left basilar pleuroparenchymal opacity with obscuration of the hemidiaphragm, new since the prior study. Mild diffuse interstitial lung disease is also present, similar to the prior study. No pneumothorax. ADDITIONAL FINDINGS: No significant additional findings. IMPRESSION: 1. Endotracheal tube tip 2.2 cm above the carlos manuel. Nasogastric tube tip in the stomach. 2. Mild left basilar pleuroparenchymal disease. Mild diffuse interstitial lung disease is chronic or recurrent. Signer Name: Cristopher Cobos MD Signed: 11/14/2018 7:52 PM Workstation Name: [id number] Transcribed By: RT Dictated By: Cristopher Cobos MD Electronically Authenticated By: Cristopher Cobos MD Signed Date/Time: 11/14/181951 - Medical Decision Making Differential diagnosis: Primary respiratory failure, pneumonia, COPD Assessment and plan: 58-year-old female, known to this provider, evaluated at this hospital, with probable primary respiratory failure, likely secondary to COPD, and continuous tobacco use. After intubation, abdominal cavity was decompressed by pressing upwards on the diaphragm, to prevent air trapping and auto stacking/auto PEEP. The patient will be ventilated on a lung protective strategy, given history of COPD, will allow for permissive hypercapnia. She'll be treated with albuterol, Atrovent, antibiotics and fluids. Critical care physician on-call was paged to arrange placement to the intensive care unit. Once laboratory studies have resulted, we will admit to the ICU. Critical Care Time: Yes Critical care time in (mins) excluding proc time.: 60 Critical care attestation.: If time is entered above; I have spent that time in minutes in the direct care of this critically ill patient, excluding procedure time. ED Disposition Clinical Impression: COPD exacerbation, Oxygen dependent Respiratory failure Qualifiers: Chronicity: acute Respiratory failure complication: unspecified whether with hypoxia or hypercapnia Qualified Code(s): J96.00 - Acute respiratory failure, unspecified whether with hypoxia or hypercapnia Disposition: DC-09 OP ADMIT IP TO THIS HOSP Is pt being admited?: Yes Condition: Critical
[2018-11-14] MEDS ORDERED: SODIUM CHLORIDE 0.9% 1000 ML 1,000 ML ONE ×2 (19:22→21:40)
--- NOTE | 2018-11-14 19:57 | XRay Report ---
CHEST 1 VIEW 7:26 PM INDICATION / CLINICAL INFORMATION: ETT placement, NG PLACEMENT. Respiratory failure. COMPARISON: 09/28/2018. FINDINGS: SUPPORT DEVICES: There is a new endotracheal tube with the tip 2.2 cm above the carlos manuel. There is a na sogastric tube with the tip overlying the distal stomach. HEART / MEDIASTINUM: The heart is mildly enlarged with a left ventricular configuration. LUNGS / PLEURA: There is mild left basilar pleuroparenchymal opacity with obscuration of the hemidiap hragm, new since the prior study. Mild diffuse interstitial lung disease is also present, similar to the prior study. No pneumothorax. ADDITIONAL FINDINGS: No significant additional findings. IMPRESSION: 1. Endotracheal tube tip 2.2 cm above the carlos manuel. Nasogastric tube tip in the stomach. 2. Mild left basilar pleuroparenchymal disease. Mild diffuse interstitial lung disease is chronic or recurrent. Signer Name: Cristopher Cobos MD Signed: 11/14/2018 7:52 PM Workstation Name: [id number]
[2018-11-14] MEDS ORDERED: MIDAZOLAM 100 MG in SODIUM CHLORIDE 0.9% 80 ML IV SCH (20:00)
[2018-11-14 20:20] LABS: Basophils % (Auto) 0.6 % (0.0-1.8); Eosinophils % (Auto) 0.5 % (0.0-4.3); Lymphocytes # (Auto) 0.6 K/mm3 (1.2-5.4); Lymphocytes % (Auto) 7.2 % (13.4-35.0); Mean Corpuscular HGB Conc 29 % (30-34); Mean Corpuscular Volume 79 fl (79-97); Monocytes # (Auto) 0.4 K/mm3 (0.0-0.8); Monocytes % (Auto) 4.6 % (0.0-7.3); Platelet Count 132 K/mm3 (140-440)
[2018-11-14 20:23] LABS: Hematocrit 41.7 % (30.3-42.9); Hemoglobin 11.9 gm/dl (10.1-14.3); Red Cell Distribution Width 20.5 % (13.2-15.2)
[2018-11-14 20:24] LABS: INR 1.12 (0.87-1.13)
[2018-11-14 20:42] LABS: Alanine Aminotransferase 6 units/L (7-56); Albumin 3.4 g/dL (3.9-5); BUN/Creatinine Ratio 23; Blood Urea Nitrogen 9 mg/dL (7-17); Calcium 8.4 mg/dL (8.4-10.2); Hemolysis Index 30
[2018-11-14] MEDS ORDERED: SODIUM CHLORIDE 0.9% 1000 ML 1,000 ML IV ONE ×2 (20:49→21:23)
[2018-11-14 21:17] LABS: ABG Base Excess 5.3 mmol/L (-2.0-3.0); ABG HCO3 32.4 mmol/L (20.0-26.0); ABG Methemoglobin 0.4 % (0.0-1.5); ABG Oxygen Saturation 96.6 % (95.0-99.0); ABG PCO2 60.5 mm Hg; ABG PH 7.346 pH Units (7.350-7.450); ABG PO2 80.5 mm Hg (80.0-90.0)
[2018-11-14 21:18] LABS: Bacteria,Urine 1+ /HPF (Negative); Bilirubin,Urine NEG (Negative); Blood,Urine SM (Negative); Color,Urine Yellow (Yellow); Hyaline Casts,Urine 36 /LPF; Mucus,Urine 1+ /HPF; Urobilinogen,Urine < 2.0 mg/dL (<2.0)
[2018-11-14] MEDS ORDERED: LIDOCAINE 1%/EPINEPHRINE 1:100,000 VIAL (20 ML) INFILTRATI ONE (21:38)
[2018-11-14] MEDS ORDERED: ONDANSETRON 4 MG/2 ML INJ IV PRN (22:11)
[2018-11-14] MEDS ORDERED: SODIUM CHLORIDE 0.9% 500 ML 500 ML ONE (22:11)
--- NOTE | 2018-11-14 22:21 | History and Physical Report ---
History of Present Illness Date of examination: 11/14/18 Date of admission: 11/14/18 20:57 Chief complaint: SOB Medications and Allergies Allergies Allergy/AdvReac Type Severity Reaction Status Date / Time hydromorphone [From Dilaudid] Allergy Unknown Verified 09/28/18 21:25 phenobarbital Allergy Unknown Verified 09/28/18 21:25 Home Medications Medication Instructions Recorded Confirmed Last Taken Type ALPRAZolam [Xanax TAB] 0.25 mg PO Q8H PRN #15 tablet 06/19/18 11/14/18 Unknown Rx Baclofen [Lioresal] 10 mg PO BID #60 tab 06/19/18 11/14/18 Unknown Rx busPIRone [Buspar] 5 mg PO BID #60 tab 06/19/18 11/14/18 Unknown Rx Pantoprazole [Protonix TAB] 40 mg PO QDAY #30 tab 08/19/18 11/14/18 Unknown Rx Amlodipine Besylate [Norvasc] 5 mg PO DAILY 09/16/18 11/14/18 Unknown History HYDROcodone/APAP 5-325 [[place] 1 each PO BID PRN 09/16/18 11/14/18 Unknown History 5-325 mg TAB] Metoprolol Xl [Metoprolol 100 mg PO QDAY 09/16/18 11/14/18 Unknown History SUCCINATE ER TAB] Nitroglycerin [Nitrostat] 0.4 mg SL Q5M PRN 09/16/18 11/14/18 Unknown History Venlafaxine HCl [Venlafaxine] 100 mg PO TID 09/16/18 11/14/18 Unknown History Albuterol Sulfate [Proair 90 mcg IH Q4H PRN #1 pump 09/21/18 11/14/18 Unknown Rx Respiclick] Active Meds: Active Medications Acetaminophen (Tylenol) 650 mg PO Q4H PRN PRN Reason: Pain MILD(1-3)/Fever >100.5/PRAJAPATI Albuterol/Ipratropium (Duoneb *Not For Prn Use*) 1 ampul IH Q6HRT DOMINICK Famotidine (Pepcid) 20 mg IV BID DOMINICK Fentanyl (Sublimaze) 50 mcg IV Q10MIN PRN PRN Reason: ANALGESIA Hydrophilic Ointment (Vaseline Lip Therapy) 1 applic TP Q2HR PRN PRN Reason: Dry Lips Fentanyl Citrate (Fentanyl Drip Premix) 2,000 mcg in 100 mls @ 3.629 mls/hr IV TITR DOMINICK; Protocol Midazolam HCl 100 mg/ Sodium (Chloride) 100 mls @ 2 mls/hr IV TITR DOMINICK; Protocol Last Admin: 11/14/18 21:15 Dose: 1 mg/hr, 1 mls/hr Documented by: Sodium Chloride (Nacl 0.9% 1000 Ml) 1,000 mls @ 999 mls/hr IV BOLUS ONE Stop: 11/14/18 22:23 Last Admin: 11/14/18 21:50 Dose: 999 mls/hr Documented by: Sodium Chloride (Nacl 0.9% 500 Ml) 500 mls @ 999 mls/hr IV ONCE ONE Stop: 11/14/18 22:33 Last Admin: 11/14/18 22:18 Dose: 999 mls/hr Documented by: Sodium Chloride (Nacl 0.9% 1000 Ml) 1,000 mls @ 100 mls/hr IV DIRECT DOMINICK Azithromycin 500 mg/ Sodium (Chloride) 250 mls @ 250 mls/hr IV Q24HR DOMINICK; Protocol Stop: 11/20/18 09:59 Methylprednisolone Sodium Succinate (Solu-Medrol) 125 mg IV Q8HR DOMINICK Midazolam HCl (Versed) 2 mg IV Q10MIN PRN PRN Reason: Sedation Multi-Ingred Cream/Lotion/Oil/Oint (Artificial Tears Ophth Oint) 1 applic OU Q4HR PRN PRN Reason: Dry Eye(s) Ondansetron HCl (Zofran) 4 mg IV Q8H PRN PRN Reason: Nausea And Vomiting Sodium Chloride (Sodium Chloride Flush Syringe 10 Ml) 10 ml IV BID DOMINICK Sodium Chloride (Sodium Chloride Flush Syringe 10 Ml) 10 ml IV PRN PRN PRN Reason: LINE FLUSH Exam - Constitutional Vitals: Temp Pulse Resp BP Pulse Ox 97.6 F 76 20 109/54 97 11/14/18 19:42 11/14/18 22:00 11/14/18 22:00 11/14/18 22:00 11/14/18 22:00 Results - Labs CBC & Chem 7: 11/14/18 19:39 11/14/18 19:39 Labs: Laboratory Last Values WBC 8.5 K/mm3 (4.5-11.0) 11/14/18 19:39 RBC 5.30 M/mm3 (3.65-5.03) H 11/14/18 19:39 Hgb 11.9 gm/dl (10.1-14.3) 11/14/18 19:39 Hct 41.7 % (30.3-42.9) 11/14/18 19:39 MCV 79 fl (79-97) 11/14/18 19:39 MCH 23 pg (28-32) L 11/14/18 19:39 MCHC 29 % (30-34) L 11/14/18 19:39 RDW 20.5 % (13.2-15.2) H 11/14/18 19:39 Plt Count 132 K/mm3 (140-440) L 11/14/18 19:39 Lymph % (Auto) 7.2 % (13.4-35.0) L 11/14/18 19:39 [place] % (Auto) 4.6 % (0.0-7.3) 11/14/18 19:39 Eos % (Auto) 0.5 % (0.0-4.3) 11/14/18 19:39 Baso % (Auto) 0.6 % (0.0-1.8) 11/14/18 19:39 Lymph # 0.6 K/mm3 (1.2-5.4) L 11/14/18 19:39 [place] # 0.4 K/mm3 (0.0-0.8) 11/14/18 19:39 Eos # 0.0 K/mm3 (0.0-0.4) 11/14/18 19:39 Baso # 0.0 K/mm3 (0.0-0.1) 11/14/18 19:39 Seg Neutrophils % 87.1 % (40.0-70.0) H 11/14/18 19:39 Seg Neutrophils # 7.4 K/mm3 (1.8-7.7) 11/14/18 19:39 PT 14.1 Sec. (12.2-14.9) 11/14/18 19:39 INR 1.12 (0.87-1.13) 11/14/18 19:39 ABG pH 7.346 pH Units (7.350-7.450) L 11/14/18 20:45 ABG pCO2 60.5 mm Hg 11/14/18 20:45 ABG pO2 80.5 mm Hg (80.0-90.0) 11/14/18 20:45 ABG HCO3 32.4 mmol/L (20.0-26.0) H 11/14/18 20:45 ABG O2 Saturation 96.6 % (95.0-99.0) 11/14/18 20:45 ABG O2 Content 14.0 (0.0-44) 11/14/18 20:45 ABG Base Excess 5.3 mmol/L (-2.0-3.0) H 11/14/18 20:45 ABG Hemoglobin 11.0 gm/dl (12.0-16.0) L 11/14/18 20:45 ABG Carboxyhemoglobin 6.4 % (0.0-5.0) H 11/14/18 20:45 ABG Methemoglobin 0.4 % (0.0-1.5) 11/14/18 20:45 90.0 % (95.0-99.0) L 11/14/18 20:45 21 % 11/14/18 20:45 Sodium 147 mmol/L (137-145) H 11/14/18 19:39 Potassium 4.1 mmol/L (3.6-5.0) 11/14/18 19:39 Chloride 104.4 mmol/L (98-107) 11/14/18 19:39 Carbon Dioxide 35 mmol/L (22-30) H 11/14/18 19:39 12 mmol/L 11/14/18 19:39 BUN 9 mg/dL (7-17) 11/14/18 19:39 0.4 mg/dL (0.7-1.2) L 11/14/18 19:39 Estimated GFR > 60 ml/min 11/14/18 19:39 23 % 11/14/18 19:39 Glucose 121 mg/dL (65-100) H 11/14/18 19:39 POC Glucose 129 (70-105) H 11/14/18 18:59 Lactic Acid 0.80 mmol/L (0.7-2.0) 11/14/18 19:39 Calcium 8.4 mg/dL (8.4-10.2) 11/14/18 19:39 0.20 mg/dL (0.1-1.2) 11/14/18 19:39 AST 13 units/L (5-40) 11/14/18 19:39 ALT 6 units/L (7-56) L 11/14/18 19:39 85 units/L (35-129) 11/14/18 19:39 6.2 g/dL (6.3-8.2) L 11/14/18 19:39 3.4 g/dL (3.9-5) L 11/14/18 19:39 1.2 % 11/14/18 19:39 Yellow (Yellow) 11/14/18 20:29 Clear (Clear) 11/14/18 20:29 5.0 (5.0-7.0) 11/14/18 20:29 Ur Specific [place] 1.026 (1.003-1.030) 11/14/18 20:29 100 mg/dl mg/dL (Negative) 11/14/18 20:29 Neg mg/dL (Negative) 11/14/18 20:29 Neg mg/dL (Negative) 11/14/18 20:29 Sm (Negative) 11/14/18 20:29 Neg (Negative) 11/14/18 20:29 Neg (Negative) 11/14/18 20:29 < 2.0 mg/dL (<2.0) 11/14/18 20:29 Ur Leukocyte Esterase Neg (Negative) 11/14/18 20:29 6.0 /HPF (0.0-6.0) 11/14/18 20:29 16.0 /HPF (0.0-6.0) 11/14/18 20:29 U Epithel Cells (Auto) 1.0 /HPF (0-13.0) 11/14/18 20:29 1+ /HPF (Negative) 11/14/18 20:29 Hyaline Casts 36 /LPF 11/14/18 20:29 1+ /HPF 11/14/18 20:29
[2018-11-14] MEDS: methylPREDNISolone Sod Succinate 125 MG/2 ML INJ IV SCH (23:18)
[2018-11-14] MEDS: SODIUM CHLORIDE 0.9% 1000 ML 1,000 ML IV SCH (23:19)
--- NOTE | 2018-11-15 01:27 | History and Physical Report ---
History of Present Illness Date of examination: 11/14/18 Date of admission: 11/14/18 20:57 Chief complaint: SOB History of present illness: Pt is a 58 y/o CF with hx of COPD who presented to the ED via EMS on account of worsening sob. Apparently, the patient called 911 for shortness of breath. Per, EMS, he was noted to be saturating in the 60's in the field. She was given albuterol, steroids, and magnesium in the field. On arrival to the ED, the patient was altered, and history per chart was obtained from EMS staff. She was emergently intubated and placed on MV. Past History Past Medical History: CAD, COPD, GERD, hypertension, other (Anxiety) Past Surgical History: appendectomy, Other (back surgery, cardiac stent placement ) Social history: other (could not be obtained because patient is intubated and sedated) Family history: other (could not be obtained because patient is intubated and sedated) Medications and Allergies Allergies Allergy/AdvReac Type Severity Reaction Status Date / Time hydromorphone [From Dilaudid] Allergy Unknown Verified 09/28/18 21:25 phenobarbital Allergy Unknown Verified 09/28/18 21:25 Home Medications Medication Instructions Recorded Confirmed Last Taken Type ALPRAZolam [Xanax TAB] 0.25 mg PO Q8H PRN #15 tablet 06/19/18 11/14/18 Unknown Rx Baclofen [Lioresal] 10 mg PO BID #60 tab 06/19/18 11/14/18 Unknown Rx busPIRone [Buspar] 5 mg PO BID #60 tab 06/19/18 11/14/18 Unknown Rx Pantoprazole [Protonix TAB] 40 mg PO QDAY #30 tab 08/19/18 11/14/18 Unknown Rx Amlodipine Besylate [Norvasc] 5 mg PO DAILY 09/16/18 11/14/18 Unknown History HYDROcodone/APAP 5-325 [[place] 1 each PO BID PRN 09/16/18 11/14/18 Unknown History 5-325 mg TAB] Metoprolol Xl [Metoprolol 100 mg PO QDAY 09/16/18 11/14/18 Unknown History SUCCINATE ER TAB] Nitroglycerin [Nitrostat] 0.4 mg SL Q5M PRN 09/16/18 11/14/18 Unknown History Venlafaxine HCl [Venlafaxine] 100 mg PO TID 09/16/18 11/14/18 Unknown History Albuterol Sulfate [Proair 90 mcg IH Q4H PRN #1 pump 09/21/18 11/14/18 Unknown Rx Respiclick] Active Meds: Active Medications Acetaminophen (Tylenol) 650 mg PO Q4H PRN PRN Reason: Pain MILD(1-3)/Fever >100.5/PRAJAPATI Albuterol/Ipratropium (Duoneb *Not For Prn Use*) 1 ampul IH Q6HRT DOMINICK Famotidine (Pepcid) 20 mg IV BID DOMINICK Fentanyl (Sublimaze) 50 mcg IV Q10MIN PRN PRN Reason: ANALGESIA Hydrophilic Ointment (Vaseline Lip Therapy) 1 applic TP Q2HR PRN PRN Reason: Dry Lips Fentanyl Citrate (Fentanyl Drip Premix) 2,000 mcg in 100 mls @ 3.629 mls/hr IV TITR DOMINICK; Protocol Midazolam HCl 100 mg/ Sodium (Chloride) 100 mls @ 2 mls/hr IV TITR DOMINICK; Protocol Last Admin: 11/14/18 21:15 Dose: 1 mg/hr, 1 mls/hr Documented by: Sodium Chloride (Nacl 0.9% 1000 Ml) 1,000 mls @ 100 mls/hr IV DIRECT DOMINICK Last Admin: 11/14/18 23:19 Dose: 100 mls/hr Documented by: Azithromycin 500 mg/ Sodium (Chloride) 250 mls @ 250 mls/hr IV Q24HR DOMINICK; Protocol Stop: 11/20/18 09:59 Methylprednisolone Sodium Succinate (Solu-Medrol) 125 mg IV Q8HR DOMINICK Last Admin: 11/14/18 23:18 Dose: 125 mg Documented by: Midazolam HCl (Versed) 2 mg IV Q10MIN PRN PRN Reason: Sedation Multi-Ingred Cream/Lotion/Oil/Oint (Artificial Tears Ophth Oint) 1 applic OU Q4HR PRN PRN Reason: Dry Eye(s) Ondansetron HCl (Zofran) 4 mg IV Q8H PRN PRN Reason: Nausea And Vomiting Sodium Chloride (Sodium Chloride Flush Syringe 10 Ml) 10 ml IV BID DOMINICK Sodium Chloride (Sodium Chloride Flush Syringe 10 Ml) 10 ml IV PRN PRN PRN Reason: LINE FLUSH Review of Systems ROS unobtainable: due to endotracheal tube Exam - Constitutional Vitals: Temp Pulse Resp BP Pulse Ox 97.8 F 76 20 109/54 91 11/15/18 00:00 11/14/18 23:50 11/14/18 22:00 11/14/18 22:00 11/14/18 23:47 General appearance: Present: no acute distress - EENT Eyes: Present: PERRL ENT: other (patient is intubated) - Neck Neck: Present: supple - Respiratory Respiratory effort: normal Respiratory: bilateral: CTA, diminished - Cardiovascular Rhythm: regular Heart Sounds: Present: S1 & S2 - Extremities Extremities: No edema Peripheral Pulses: within normal limits - Abdominal General gastrointestinal: Present: soft, non-tender, normal bowel sounds Female genitourinary: Present: deferred - Rectal Rectal Exam: deferred - Integumentary Integumentary: Present: clear, warm, dry - Psychiatric Psychiatric: other (could not be obtained because patient is intubated and sedated) - Neurologic Neurologic: other (could not be obtained because patient is intubated and sedated) Results - Labs CBC & Chem 7: 11/14/18 19:39 11/14/18 19:39 Labs: Laboratory Last Values WBC 8.5 K/mm3 (4.5-11.0) 11/14/18 19:39 RBC 5.30 M/mm3 (3.65-5.03) H 11/14/18 19:39 Hgb 11.9 gm/dl (10.1-14.3) 11/14/18 19:39 Hct 41.7 % (30.3-42.9) 11/14/18 19:39 MCV 79 fl (79-97) 11/14/18 19:39 MCH 23 pg (28-32) L 11/14/18 19:39 MCHC 29 % (30-34) L 11/14/18 19:39 RDW 20.5 % (13.2-15.2) H 11/14/18 19:39 Plt Count 132 K/mm3 (140-440) L 11/14/18 19:39 Lymph % (Auto) 7.2 % (13.4-35.0) L 11/14/18 19:39 [place] % (Auto) 4.6 % (0.0-7.3) 11/14/18 19:39 Eos % (Auto) 0.5 % (0.0-4.3) 11/14/18 19:39 Baso % (Auto) 0.6 % (0.0-1.8) 11/14/18 19:39 Lymph # 0.6 K/mm3 (1.2-5.4) L 11/14/18 19:39 [place] # 0.4 K/mm3 (0.0-0.8) 11/14/18 19:39 Eos # 0.0 K/mm3 (0.0-0.4) 11/14/18 19:39 Baso # 0.0 K/mm3 (0.0-0.1) 11/14/18 19:39 Seg Neutrophils % 87.1 % (40.0-70.0) H 11/14/18 19:39 Seg Neutrophils # 7.4 K/mm3 (1.8-7.7) 11/14/18 19:39 PT 14.1 Sec. (12.2-14.9) 11/14/18 19:39 INR 1.12 (0.87-1.13) 11/14/18 19:39 ABG pH 7.346 pH Units (7.350-7.450) L 11/14/18 20:45 ABG pCO2 60.5 mm Hg 11/14/18 20:45 ABG pO2 80.5 mm Hg (80.0-90.0) 11/14/18 20:45 ABG HCO3 32.4 mmol/L (20.0-26.0) H 11/14/18 20:45 ABG O2 Saturation 96.6 % (95.0-99.0) 11/14/18 20:45 ABG O2 Content 14.0 (0.0-44) 11/14/18 20:45 ABG Base Excess 5.3 mmol/L (-2.0-3.0) H 11/14/18 20:45 ABG Hemoglobin 11.0 gm/dl (12.0-16.0) L 11/14/18 20:45 ABG Carboxyhemoglobin 6.4 % (0.0-5.0) H 11/14/18 20:45 ABG Methemoglobin 0.4 % (0.0-1.5) 11/14/18 20:45 90.0 % (95.0-99.0) L 11/14/18 20:45 21 % 11/14/18 20:45 Sodium 147 mmol/L (137-145) H 11/14/18 19:39 Potassium 4.1 mmol/L (3.6-5.0) 11/14/18 19:39 Chloride 104.4 mmol/L (98-107) 11/14/18 19:39 Carbon Dioxide 35 mmol/L (22-30) H 11/14/18 19:39 12 mmol/L 11/14/18 19:39 BUN 9 mg/dL (7-17) 11/14/18 19:39 0.4 mg/dL (0.7-1.2) L 11/14/18 19:39 Estimated GFR > 60 ml/min 11/14/18 19:39 23 % 11/14/18 19:39 Glucose 121 mg/dL (65-100) H 11/14/18 19:39 POC Glucose 129 (70-105) H 11/14/18 18:59 Lactic Acid 0.80 mmol/L (0.7-2.0) 11/14/18 19:39 Calcium 8.4 mg/dL (8.4-10.2) 11/14/18 19:39 0.20 mg/dL (0.1-1.2) 11/14/18 19:39 AST 13 units/L (5-40) 11/14/18 19:39 ALT 6 units/L (7-56) L 11/14/18 19:39 85 units/L (35-129) 11/14/18 19:39 6.2 g/dL (6.3-8.2) L 11/14/18 19:39 3.4 g/dL (3.9-5) L 11/14/18 19:39 1.2 % 11/14/18 19:39 Yellow (Yellow) 11/14/18 20:29 Clear (Clear) 11/14/18 20:29 5.0 (5.0-7.0) 11/14/18 20:29 Ur Specific [place] 1.026 (1.003-1.030) 11/14/18 20:29 100 mg/dl mg/dL (Negative) 11/14/18 20:29 Neg mg/dL (Negative) 11/14/18 20:29 Neg mg/dL (Negative) 11/14/18 20:29 Sm (Negative) 11/14/18 20:29 Neg (Negative) 11/14/18 20:29 Neg (Negative) 11/14/18 20:29 < 2.0 mg/dL (<2.0) 11/14/18 20:29 Ur Leukocyte Esterase Neg (Negative) 11/14/18 20:29 6.0 /HPF (0.0-6.0) 11/14/18 20:29 16.0 /HPF (0.0-6.0) 11/14/18 20:29 U Epithel Cells (Auto) 1.0 /HPF (0-13.0) 11/14/18 20:29 1+ /HPF (Negative) 11/14/18 20:29 Hyaline Casts 36 /LPF 11/14/18 20:29 1+ /HPF 11/14/18 20:29 Assessment and Plan Assessment and plan: Acute severe COPD exacerbation -on IV steroids, neb tx and IV antibiotic Acute respiratory failure with hypoxia -Likely secondary to the COPD exacerbation -s/p intubation on MV -Pulmonology consulted Acute metabolic encephalopathy -Monitor clinically Hypotension -BP responsive to IV fluids, will monitor -will hold her home anti-hypertensives Hypernatremia -We'll monitor level Thrombocytopenia -We'll monitor level CAD -Stable DVT ppx: SCD GI ppx: Pepcid Disposition: I spent 45 minutes providing critical care to this seriously ill patient who requires frequent reassessments of her respiratory and cardiovascular status
[2018-11-15] MEDS: IPRATROPIUM/ALBUTEROL SULFATE 3 ML AMPUL.NEB IH SCH ×4 (01:34→20:24)
[2018-11-15] MEDS ORDERED: ROCURONIUM 50 MG/5 ML INJ IV ONE (03:00)
[2018-11-15] MEDS ORDERED: KETAMINE 500 MG/5 ML VIAL MDV ONE (03:00)
--- NOTE | 2018-11-15 03:01 | XRay Report ---
CHEST 1 VIEW 11/15/2018 2:23 AM INDICATION / CLINICAL INFORMATION: follow up respiratory failure. COMPARISON: 11/14/18 FINDINGS: SUPPORT DEVICES: Stable, satisfactory device positioning. HEART / MEDIASTINUM: Enlarged but stable. LUNGS / PLEURA: Mild interstitial edema is unchanged. Left lung base density has improved slightly. N o pneumothorax. ADDITIONAL FINDINGS: No significant additional findings. IMPRESSION: 1. Stable interstitial edema. Signer Name: Stephen Hdz MD Signed: 11/15/2018 2:56 AM Workstation Name: [id number]
[2018-11-15 05:42] LABS: Mean Corpuscular HGB Conc 28 % (30-34); Mean Corpuscular Volume 78 fl (79-97); Red Blood Count 5.36 M/mm3 (3.65-5.03)
[2018-11-15 05:44] LABS: BUN/Creatinine Ratio 23; Blood Urea Nitrogen 9 mg/dL (7-17); Calcium 8.1 mg/dL (8.4-10.2); Hematocrit 41.7 % (30.3-42.9); Hemoglobin 11.8 gm/dl (10.1-14.3); Hemolysis Index 12; Platelet Count 124 K/mm3 (140-440); Red Cell Distribution Width 20.5 % (13.2-15.2)
[2018-11-15 06:21] LABS: Anisocytosis 1+; Basophils % (Manual) 0 % (0.0-1.8); Eosinophils % (Manual) 0 % (0.0-4.3); Hypochromasia 2+; Total Cells Counted 100
[2018-11-15] MEDS: methylPREDNISolone Sod Succinate 125 MG/2 ML INJ IV SCH ×3 (06:54→21:06)
[2018-11-15] MEDS: fentaNYL DRIP Premix 2,000 MCG/100 ML BAG IV SCH ×2 (09:45→20:51)
[2018-11-15] MEDS: FAMOTIDINE 20 MG/2 ML INJ IV SCH ×2 (09:47→21:07)
[2018-11-15] MEDS: SODIUM CHLORIDE 0.9% 1000 ML 1,000 ML IV SCH (09:47)
[2018-11-15] MEDS ORDERED: AZITHROMYCIN 500 MG in SODIUM CHLORIDE 0.9% 250ML 250 ML IV SCH (10:00)
--- NOTE | 2018-11-15 14:56 | Consultation ---
History of Present Illness Consult date: 11/15/18 Requesting physician: ANNE SLATER Reason for consult: other (Acute hypoxic-hypercapnic respiratory failure, AE- COPD, Acute toxic-metabolic encephalopathy) History of present illness: Rochelle is intubated and sedated on Fentanyl/midazolam. Unable to give a history. She is known to me from previous hospital admissions. History as per ED physician documentation This is a 58-year-old female. I have evaluated this patient in the past. She is an ongoing smoker, history of GERD, COPD, chronic respiratory failure, heart disease, stent, hypertension, anxiety. The patient is brought to the hospital by EMS. The patient is altered, and all the history is obtained from verbal report from nursing team, and EMS staff. Apparently, the patient called for shortness of breath. Patient was saturating the 60s in the field. EMS gave the patient albuterol, steroids, and magnesium in the field. They reported a normal Accu-Chek. Upon my initial evaluation, the patient is obtunded, slumped over, on a BiPAP. She is completely altered, and not protecting her airway. The patient is intubated emergently for airway protection. I have been consulted for critical care management. Patient was seen and examined. Vitals, labs, medications, chart and imaging were reviewed. Past History Past Medical History: CAD, COPD, GERD, hypertension, other (Anxiety) Past Surgical History: appendectomy, Other (back surgery, cardiac stent axel cement ) Social history: other (could not be obtained because patient is intubated and sedated) Family history: other (could not be obtained because patient is intubated and sedated) Medications and Allergies Allergies Allergy/AdvReac Type Severity Reaction Status Date / Time hydromorphone [From Dilaudid] Allergy Unknown Verified 09/28/18 21:25 phenobarbital Allergy Unknown Verified 09/28/18 21:25 Home Medications Medication Instructions Recorded Confirmed Last Taken Type ALPRAZolam [Xanax TAB] 0.25 mg PO Q8H PRN #15 tablet 06/19/18 11/14/18 Unknown Rx Baclofen [Lioresal] 10 mg PO BID #60 tab 06/19/18 11/14/18 Unknown Rx busPIRone [Buspar] 5 mg PO BID #60 tab 06/19/18 11/14/18 Unknown Rx Pantoprazole [Protonix TAB] 40 mg PO QDAY #30 tab 08/19/18 11/14/18 Unknown Rx Amlodipine Besylate [Norvasc] 5 mg PO DAILY 09/16/18 11/14/18 Unknown History HYDROcodone/APAP 5-325 [[place] 1 each PO BID PRN 09/16/18 11/14/18 Unknown History 5-325 mg TAB] Metoprolol Xl [Metoprolol 100 mg PO QDAY 09/16/18 11/14/18 Unknown History SUCCINATE ER TAB] Nitroglycerin [Nitrostat] 0.4 mg SL Q5M PRN 09/16/18 11/14/18 Unknown History Venlafaxine HCl [Venlafaxine] 100 mg PO TID 09/16/18 11/14/18 Unknown History Albuterol Sulfate [Proair 90 mcg IH Q4H PRN #1 pump 09/21/18 11/14/18 Unknown Rx Respiclick] Active Meds: Active Medications Acetaminophen (Tylenol) 650 mg PO Q4H PRN PRN Reason: Pain MILD(1-3)/Fever >100.5/PRAJAPATI Albuterol/Ipratropium (Duoneb *Not For Prn Use*) 1 ampul IH Q6HRT DOMINICK Last Admin: 11/15/18 13:43 Dose: 1 ampul Documented by: Famotidine (Pepcid) 20 mg IV BID DOMINICK Last Admin: 11/15/18 09:47 Dose: 20 mg Documented by: Fentanyl (Sublimaze) 50 mcg IV Q10MIN PRN PRN Reason: ANALGESIA Hydrophilic Ointment (Vaseline Lip Therapy) 1 applic TP Q2HR PRN PRN Reason: Dry Lips Fentanyl Citrate (Fentanyl Drip Premix) 2,000 mcg in 100 mls @ 3.629 mls/hr IV TITR DOMINICK; Protocol Last Titration: 11/15/18 11:50 Dose: 1 mcg/kg/hr, 3.629 mls/hr Documented by: Midazolam HCl 100 mg/ Sodium (Chloride) 100 mls @ 2 mls/hr IV TITR DOMINICK; Protocol Last Titration: 11/15/18 14:18 Dose: 3 mg/hr, 3 mls/hr Documented by: Sodium Chloride (Nacl 0.9% 1000 Ml) 1,000 mls @ 100 mls/hr IV DIRECT DOMINICK Last Admin: 11/15/18 09:47 Dose: 100 mls/hr Documented by: Azithromycin 500 mg/ Sodium (Chloride) 250 mls @ 250 mls/hr IV Q24HR [facility]; Protocol Stop: 11/20/18 09:59 Last Admin: 11/15/18 09:48 Dose: 250 mls/hr Documented by: Methylprednisolone Sodium Succinate (Solu-Medrol) 125 mg IV Q8HR [facility] Last Admin: 11/15/18 13:55 Dose: 125 mg Documented by: Midazolam HCl (Versed) 2 mg IV Q10MIN PRN PRN Reason: Sedation Multi-Ingred Cream/Lotion/Oil/Oint (Artificial Tears Ophth Oint) 1 applic OU Q4HR PRN PRN Reason: Dry Eye(s) Ondansetron HCl (Zofran) 4 mg IV Q8H PRN PRN Reason: Nausea And Vomiting Sodium Chloride (Sodium Chloride Flush Syringe 10 Ml) 10 ml IV BID [facility] Last Admin: 11/15/18 09:48 Dose: 10 ml Documented by: Sodium Chloride (Sodium Chloride Flush Syringe 10 Ml) 10 ml IV PRN PRN PRN Reason: LINE FLUSH Review of Systems ROS unobtainable: due to endotracheal tube, due to mental status Physical Examination Vital signs: Vital Signs Pulse Resp BP Pulse Ox 83 15 122/54 100 11/14/18 19:00 11/14/18 19:00 11/14/18 19:00 11/14/18 19:00 Vitals reviewed - EENT Eyes: Present: PERRL ENT: other (patient is intubated), OGT in place, head flexed forward - Neck Neck: Present: supple - Respiratory Respiratory effort: normal Respiratory: bilateral: CTA, diminished - Cardiovascular Rhythm: regular Heart Sounds: Present: S1 & S2 - Extremities Extremities: No edema Peripheral Pulses: within normal limits - Abdominal General gastrointestinal: Present: soft, non-tender, normal bowel sounds Female genitourinary: Present: deferred - Rectal Rectal Exam: deferred - Integumentary Integumentary: Present: clear, warm, dry - Psychiatric Psychiatric: other (could not be obtained because patient is intubated and sedated) - Neurologic Neurologic: other (could not be obtained because patient is intubated and sedated) Results - Laboratory Findings CBC and BMP: 11/15/18 04:20 11/15/18 04:20 ABG POC ABG pH 7.291 (7.35-7.45) L 11/15/18 06:18 ABG pH 7.346 pH Units (7.350-7.450) L 11/14/18 20:45 POC ABG pCO2 65.4 (35-45) H 11/15/18 06:18 ABG pCO2 60.5 mm Hg 11/14/18 20:45 POC ABG pO2 65 (80-105) L 11/15/18 06:18 ABG pO2 80.5 mm Hg (80.0-90.0) 11/14/18 20:45 POC ABG HCO3 31.5 (22-26 mml/L) 11/15/18 06:18 POC ABG Total CO2 33 (23-27mmol/L) 11/15/18 06:18 POC ABG O2 Sat 89 11/15/18 06:18 ABG O2 Saturation 96.6 % (95.0-99.0) 11/14/18 20:45 PT/INR, D-dimer PT 14.1 Sec. (12.2-14.9) 11/14/18 19:39 INR 1.12 (0.87-1.13) 11/14/18 19:39 Abnormal lab findings: Abnormal Labs 11/14/18 11/14/18 11/14/18 18:59 19:39 19:39 RBC 5.30 H MCV MCH 23 L MCHC 29 L RDW 20.5 H Plt Count 132 L Lymph % (Auto) 7.2 L Lymph # 0.6 L Seg Neutrophils % 87.1 H Seg Neuts % (Manual) Lymphocytes % (Manual) Lymphocytes # (Manual) POC ABG pH ABG pH POC ABG pCO2 POC ABG pO2 ABG HCO3 ABG Base Excess ABG Hemoglobin ABG Carboxyhemoglobin Oxyhemoglobin Sodium 147 H Chloride Carbon Dioxide 35 H Creatinine 0.4 L Glucose 121 H POC Glucose 129 H Calcium ALT 6 L Total Protein 6.2 L Albumin 3.4 L 11/14/18 11/15/18 11/15/18 20:45 04:20 04:20 RBC 5.36 H MCV 78 L MCH 22 L MCHC 28 L RDW 20.5 H Plt Count 124 L Lymph % (Auto) Lymph # Seg Neutrophils % Seg Neuts % (Manual) 92.0 H Lymphocytes % (Manual) 6.0 L Lymphocytes # (Manual) 0.4 L POC ABG pH ABG pH 7.346 L POC ABG pCO2 POC ABG pO2 ABG HCO3 32.4 H ABG Base Excess 5.3 H ABG Hemoglobin 11.0 L ABG Carboxyhemoglobin 6.4 H Oxyhemoglobin 90.0 L Sodium 146 H Chloride 107.6 H Carbon Dioxide Creatinine 0.4 L Glucose 132 H POC Glucose Calcium 8.1 L ALT Total Protein Albumin 11/15/18 11/15/18 06:18 12:36 RBC MCV MCH MCHC RDW Plt Count Lymph % (Auto) Lymph # Seg Neutrophils % Seg Neuts % (Manual) Lymphocytes % (Manual) Lymphocytes # (Manual) POC ABG pH 7.291 L ABG pH POC ABG pCO2 65.4 H POC ABG pO2 65 L ABG HCO3 ABG Base Excess ABG Hemoglobin ABG Carboxyhemoglobin Oxyhemoglobin Sodium Chloride Carbon Dioxide Creatinine Glucose POC Glucose 149 H Calcium ALT Total Protein Albumin - Diagnostic Findings Chest x-ray: image reviewed (ETT in position, Hardware in the spine, bilateral interstitial infiltrates with LLL infiltrate( pleuroparenchymal)) Assessment and Plan -Acute and chronic hypoxic-hypercapnic respiratory failure -AE-COPD -Tobacco use disorder/Nicotine dependence( on going) -Hypernatremia -History of HTN, hypotensive at presentation -Chronic narcotic dependence -Chronic back pain -Anxiety disorder -VAP bundle addressed -Adjust minute ventilation for better acid base balance -Lung protective strategies -Oxygen restrictive strategies- PaO2 of 60 with O2 sats 88-90% is acceptable -Bronchodilators -Stop benzodiazepines, reduce the possibility of delirium -Continue with fentanyl, titrate for RAAS of 0 to -1 -Maintenance of sleep-wake cycle, avoid delirium -Daily SAT and SBT as tolerated -Add night Seroquel, prior history of agitation and anxiety -Stop NS infusion, and change to D5 0.2Nsaline -ABG, CBC and BMP in the morning -Start nutritional support with Vital 1.2 -Accuchecks with glycemic control -While critically ill target blood glucose of 140-180 mg/dL; avoid hypoglycemic -VTE prophylaxis(enoxaparin) -Stress ulcer prophylaxis( Famotidine) -Steroids -Bronchodilators -Antibiotics for severe AE-COPD( Levofloxacin adn azithromycin) -Hold home antihypertensives fro now -Monitor hemodynamics closely -Avoid delirium -Nicotine withdrawal precautions, nicotine patch CONDITION: CRITICAL PROGNOSIS: GUARDED CODE STATUS: FULL CODE In view of ongoing smoking, recurrent hospital admission, will need to re- address advance directives and goals of care, once the patient is able to be a part of that discussion. Will also address smoking cessation again, once she is able to be a part of that discussion Discussed care plan extensively with RT and RN at the bedside. The high probability of a clinically significant, sudden or life-threatening deterioration of the respiratory, cardiovascular, neurology, endocrine system(s) required my full and direct attention, intervention and personal management. The aggregate critical care time was [75] minutes without overlap. Time includes spent on; [x] Data Review and interpretation [x] Patient assessment and monitoring of vital signs [x] Documentation [x] Medication orders and management
--- NOTE | 2018-11-15 15:36 | Progress Note ---
Assessment and Plan - Patient Problems (1) COPD exacerbation Current Visit: Yes Status: Chronic Plan to address problem: Respiratory failure appears to be secondary to acute COPD exacerbationn.; She was currently intubated sedated pulmonology following we'll wean as tolerated. Empiric antibiotics. Nebulizes when indicated. (2) Acute and chronic respiratory failure Current Visit: No Status: Acute Plan to address problem: Secondary to COPD exacerbation or underlying infection will treat empirically at this time with azithromycin. For hypoxemic respiratory failure. Continue supportive care. (3) Coronary artery disease Current Visit: No Status: Chronic Plan to address problem: Patient chest pain-free no chest pain or history of prior to his episode. (4) HTN (hypertension) Current Visit: No Status: Chronic Qualifiers: Hypertension type: essential hypertension Qualified Code(s): I10 - Essential (primary) hypertension Plan to address problem: Blood pressure currently on the low side. We'll observe hold any antihypertensives for now. (5) Nicotine dependence Current Visit: No Status: Chronic Qualifiers: Nicotine product type: cigarettes Plan to address problem: A she intubated we'll introduce nicotine patch when necessary. (6) Thrombocytopenia Current Visit: Yes Status: Acute Plan to address problem: At present secondary to chronic disease no changes. History Interval history: He showed 58-year-old with a history of COPD, coronary artery disease, hypertension, anemia presents with acute episode of shortness of breath dyspnea on exertion patient's sats were found to be in the 60s and was subsequently intubated for respiratory failure. Patient currently sedated and intubated. Unable to make needs known now. Hospitalist Physical - Constitutional Vitals: Temp Pulse Resp BP Pulse Ox 97.8 F 83 25 H 102/53 92 11/15/18 12:00 11/15/18 14:41 11/15/18 14:41 11/15/18 14:41 11/15/18 14:41 General appearance: Present: no acute distress, other (intubated sedated fentanyl.) - Neck Neck: Present: supple, normal ROM - Respiratory Respiratory: bilateral: diminished - Cardiovascular Rhythm: regular - Extremities Extremities: no ischemia, pulses intact, pulses symmetrical, No edema, normal temperature, normal color - Abdominal General gastrointestinal: soft, non-tender, non-distended, no hepatomegaly, no splenomegaly, no mass - Integumentary Integumentary: Present: clear, warm, dry Results - Labs CBC & Chem 7: 11/15/18 04:20 11/15/18 04:20 Labs: Laboratory Last Values WBC 6.6 K/mm3 (4.5-11.0) 11/15/18 04:20 RBC 5.36 M/mm3 (3.65-5.03) H 11/15/18 04:20 Hgb 11.8 gm/dl (10.1-14.3) 11/15/18 04:20 Hct 41.7 % (30.3-42.9) 11/15/18 04:20 MCV 78 fl (79-97) L 11/15/18 04:20 MCH 22 pg (28-32) L 11/15/18 04:20 MCHC 28 % (30-34) L 11/15/18 04:20 RDW 20.5 % (13.2-15.2) H 11/15/18 04:20 Plt Count 124 K/mm3 (140-440) L 11/15/18 04:20 Lymph % (Auto) Embedded Systems Software Developer 11/15/18 04:20 [place] % (Auto) Embedded Systems Software Developer 11/15/18 04:20 Eos % (Auto) Embedded Systems Software Developer 11/15/18 04:20 Baso % (Auto) Embedded Systems Software Developer 11/15/18 04:20 Lymph # [employer]ded Systems Software Developer 11/15/18 04:20 [place] # Embedded Systems Software Developer 11/15/18 04:20 Eos # Embedded Systems Software Developer 11/15/18 04:20 Baso # Embedded Systems Software Developer 11/15/18 04:20 Add Manual Diff Complete 11/15/18 04:20 Total Counted 100 11/15/18 04:20 Seg Neutrophils % Emb[employer]ded Systems Software Developer 11/15/18 04:20 Seg Neuts % (Manual) 92.0 % (40.0-70.0) H 11/15/18 04:20 0 % 11/15/18 04:20 6.0 % (13.4-35.0) L 11/15/18 04:20 Reactive Lymphs % (Man) 0 % 11/15/18 04:20 2.0 % (0.0-7.3) 11/15/18 04:20 0 % (0.0-4.3) 11/15/18 04:20 0 % (0.0-1.8) 11/15/18 04:20 0 % 11/15/18 04:20 0 % 11/15/18 04:20 0 % 11/15/18 04:20 0 % 11/15/18 04:20 Nucleated RBC % Not Reportable 11/15/18 04:20 Seg Neutrophils # Embedded Systems Software Developer 11/15/18 04:20 Seg Neutrophils # Man 6.1 K/mm3 (1.8-7.7) 11/15/18 04:20 Band Neutrophils # 0.0 K/mm3 11/15/18 04:20 0.4 K/mm3 (1.2-5.4) L 11/15/18 04:20 Abs React Lymphs (Man) 0.0 K/mm3 11/15/18 04:20 0.1 K/mm3 (0.0-0.8) 11/15/18 04:20 0.0 K/mm3 (0.0-0.4) 11/15/18 04:20 0.0 K/mm3 (0.0-0.1) 11/15/18 04:20 0.0 K/mm3 11/15/18 04:20 0.0 K/mm3 11/15/18 04:20 0.0 K/mm3 11/15/18 04:20 Blast Cells # 0.0 K/mm3 11/15/18 04:20 WBC Morphology Not Reportable 11/15/18 04:20 Hypersegmented Neuts Not Reportable 11/15/18 04:20 Hyposegmented Neuts Not Reportable 11/15/18 04:20 Hypogranular Neuts Not Reportable 11/15/18 04:20 Not Reportable 11/15/18 04:20 Not Reportable 11/15/18 04:20 Not Reportable 11/15/18 04:20 Not Reportable 11/15/18 04:20 Not Reportable 11/15/18 04:20 Not Reportable 11/15/18 04:20 Not Reportable 11/15/18 04:20 Not Reportable 11/15/18 04:20 Plt Clumps, EDTA Not Reportable 11/15/18 04:20 Not Reportable 11/15/18 04:20 Not Reportable 11/15/18 04:20 Not Reportable 11/15/18 04:20 Plt Morphology Comment Not Reportable 11/15/18 04:20 RBC Morphology Not Reportable 11/15/18 04:20 Dimorphic RBCs Not Reportable 11/15/18 04:20 Not Reportable 11/15/18 04:20 2+ 11/15/18 04:20 Not Reportable 11/15/18 04:20 1+ 11/15/18 04:20 Not Reportable 11/15/18 04:20 Not Reportable 11/15/18 04:20 Not Reportable 11/15/18 04:20 Not Reportable 11/15/18 04:20 Not Reportable 11/15/18 04:20 Not Reportable 11/15/18 04:20 Not Reportable 11/15/18 04:20 Not Reportable 11/15/18 04:20 Not Reportable 11/15/18 04:20 Not Reportable 11/15/18 04:20 Not Reportable 11/15/18 04:20 Not Reportable 11/15/18 04:20 Not Reportable 11/15/18 04:20 Not Reportable 11/15/18 04:20 Not Reportable 11/15/18 04:20 Acanthocytes (Spur) Not Reportable 11/15/18 04:20 Rouleaux Not Reportable 11/15/18 04:20 Not Reportable 11/15/18 04:20 Not Reportable 11/15/18 04:20 Not Reportable 11/15/18 04:20 Not Reportable 11/15/18 04:20 Hem Pathologist Commnt No 11/15/18 04:20 PT 14.1 Sec. (12.2-14.9) 11/14/18 19:39 INR 1.12 (0.87-1.13) 11/14/18 19:39 POC ABG pH 7.291 (7.35-7.45) L 11/15/18 06:18 ABG pH 7.346 pH Units (7.350-7.450) L 11/14/18 20:45 POC ABG pCO2 65.4 (35-45) H 11/15/18 06:18 ABG pCO2 60.5 mm Hg 11/14/18 20:45 POC ABG pO2 65 (80-105) L 11/15/18 06:18 ABG pO2 80.5 mm Hg (80.0-90.0) 11/14/18 20:45 POC ABG HCO3 31.5 (22-26 mml/L) 11/15/18 06:18 ABG HCO3 32.4 mmol/L (20.0-26.0) H 11/14/18 20:45 POC ABG Total CO2 33 (23-27mmol/L) 11/15/18 06:18 POC ABG O2 Sat 89 11/15/18 06:18 ABG O2 Saturation 96.6 % (95.0-99.0) 11/14/18 20:45 ABG O2 Content 14.0 (0.0-44) 11/14/18 20:45 POC ABG Base Excess 5 ((-2) - (+3)mmol/L) 11/15/18 06:18 ABG Base Excess 5.3 mmol/L (-2.0-3.0) H 11/14/18 20:45 ABG Hemoglobin 11.0 gm/dl (12.0-16.0) L 11/14/18 20:45 ABG Carboxyhemoglobin 6.4 % (0.0-5.0) H 11/14/18 20:45 ABG Methemoglobin 0.4 % (0.0-1.5) 11/14/18 20:45 90.0 % (95.0-99.0) L 11/14/18 20:45 50 % 11/15/18 06:18 Sodium 146 mmol/L (137-145) H 11/15/18 04:20 Potassium 4.2 mmol/L (3.6-5.0) 11/15/18 04:20 Chloride 107.6 mmol/L (98-107) H 11/15/18 04:20 Carbon Dioxide 29 mmol/L (22-30) 11/15/18 04:20 14 mmol/L 11/15/18 04:20 BUN 9 mg/dL (7-17) 11/15/18 04:20 0.4 mg/dL (0.7-1.2) L 11/15/18 04:20 Estimated GFR > 60 ml/min 11/15/18 04:20 23 % 11/15/18 04:20 Glucose 132 mg/dL (65-100) H 11/15/18 04:20 POC Glucose 149 (70-105) H 11/15/18 12:36 Lactic Acid 0.80 mmol/L (0.7-2.0) 11/14/18 19:39 Calcium 8.1 mg/dL (8.4-10.2) L 11/15/18 04:20 0.20 mg/dL (0.1-1.2) 11/14/18 19:39 AST 13 units/L (5-40) 11/14/18 19:39 ALT 6 units/L (7-56) L 11/14/18 19:39 85 units/L (35-129) 11/14/18 19:39 < 0.010 ng/mL (0.00-0.029) 11/15/18 04:20 6.2 g/dL (6.3-8.2) L 11/14/18 19:39 3.4 g/dL (3.9-5) L 11/14/18 19:39 1.2 % 11/14/18 19:39 Yellow (Yellow) 11/14/18 20:29 Clear (Clear) 11/14/18 20:29 5.0 (5.0-7.0) 11/14/18 20:29 Ur Specific [place] 1.026 (1.003-1.030) 11/14/18 20:29 100 mg/dl mg/dL (Negative) 11/14/18 20:29 Neg mg/dL (Negative) 11/14/18 20:29 Neg mg/dL (Negative) 11/14/18 20:29 Sm (Negative) 11/14/18 20:29 Neg (Negative) 11/14/18 20:29 Neg (Negative) 11/14/18 20:29 < 2.0 mg/dL (<2.0) 11/14/18 20:29 Ur Leukocyte Esterase Neg (Negative) 11/14/18 20:29 6.0 /HPF (0.0-6.0) 11/14/18 20:29 16.0 /HPF (0.0-6.0) 11/14/18 20:29 U Epithel Cells (Auto) 1.0 /HPF (0-13.0) 11/14/18 20:29 1+ /HPF (Negative) 11/14/18 20:29 Hyaline Casts 36 /LPF 11/14/18 20:29 1+ /HPF 11/14/18 20:29 - Imaging and Cardiology EKG: report reviewed Chest x-ray: report reviewed Active Medications - Current Medications Current Medications: Generic Name Dose Route Start Last Admin Trade Name Freq PRN Reason Stop Dose Admin Acetaminophen 650 mg 11/14/18 22:11 Tylenol PO Q4H PRN Pain MILD(1-3)/Fever >100.5/PRAJAPATI Albuterol/Ipratropium 1 ampul 11/15/18 02:00 11/15/18 13:43 Duoneb *Not For Prn Use* IH 1 ampul Q6HRT DOMINICK Administration Enoxaparin Sodium 40 mg 11/16/18 10:00 Lovenox SUB-Q QDAY@1000 DOMINICK Famotidine 20 mg 11/15/18 10:00 11/15/18 09:47 Pepcid IV 20 mg BID DOMINICK Administration Fentanyl 50 mcg 11/14/18 19:14 Sublimaze IV Q10MIN PRN ANALGESIA Hydrophilic Ointment 1 applic 11/14/18 19:14 Vaseline Lip Therapy TP Q2HR PRN Dry Lips Fentanyl Citrate 2,000 mcg in 100 mls @ 3.629 mls/hr 11/14/18 20:00 11/15/18 11:50 Fentanyl Drip Premix IV 1 mcg/kg/hr TITR DOMINICK 3.629 mls/hr Titration Protocol 1 MCG/KG/HR Sodium Chloride 1,000 mls @ 100 mls/hr 11/14/18 23:00 11/15/18 09:47 Nacl 0.9% 1000 Ml IV 100 mls/hr DIRECT DOMINICK Administration Azithromycin 500 mg/ Sodium 250 mls @ 250 mls/hr 11/15/18 10:00 11/15/18 09:48 Chloride IV 11/20/18 09:59 250 mls/hr Q24HR DOMINICK Administration Protocol Levofloxacin/Dextrose 750 mg in 150 mls @ 100 mls/hr 11/15/18 20:00 Levaquin 750mg/150ml IV Q24H DOMINICK Protocol Methylprednisolone Sodium Succinate 60 mg 11/15/18 16:00 Solu-Medrol IV Q8HR DOMINICK Midazolam HCl 2 mg 11/14/18 19:14 Versed IV Q10MIN PRN Sedation Multi-Ingred Cream/Lotion/Oil/Oint 1 applic 11/14/18 19:14 Artificial Tears Ophth Oint OU Q4HR PRN Dry Eye(s) Nicotine 14 mg 11/15/18 16:00 Habitrol TD QDAY DOMINICK Ondansetron HCl 4 mg 11/14/18 22:11 Zofran IV Q8H PRN Nausea And Vomiting Quetiapine Fumarate 25 mg 11/15/18 22:00 Seroquel PO QHS DOMINICK Sodium Chloride 10 ml 11/15/18 10:00 11/15/18 09:48 Sodium Chloride Flush Syringe 10 Ml IV 10 ml BID DOMINICK Administration Sodium Chloride 10 ml 11/14/18 22:11 Sodium Chloride Flush Syringe 10 Ml IV PRN PRN LINE FLUSH
[2018-11-15] MEDS ORDERED: methylPREDNISolone Sod Succinate 125 MG/2 ML INJ IV SCH (16:00)
[2018-11-15] MEDS: FREE WATER PO SCH ×3 (16:15→22:00)
--- NOTE | 2018-11-15 16:44 | XRay Report ---
ABDOMEN 1 VIEW INDICATION / CLINICAL INFORMATION: Feeding tube placement ( NGT). COMPARISON: One view of the chest from 08/15/2018. FINDINGS: TUBES / LINES: An NG tube terminates over the gastric body. BOWEL GAS PATTERN: No significant abnormality. FREE AIR / EXTRALUMINAL GAS: None seen. ADDITIONAL FINDINGS: An IVC filter is in similar position. The bones are unchanged. No additional sig nificant findings. IMPRESSION: Satisfactory positioning of the NG tube. Signer Name: Finn Gongora MD Signed: 11/15/2018 4:40 PM Workstation Name: [email or web address]
[2018-11-15] MEDS: NICOTINE 14 MG/24 HR PATCH TD SCH (17:32)
[2018-11-15] MEDS: QUEtiapine 25 MG TAB PO SCH (21:06)
[2018-11-16 00:30] LABS: Mean Corpuscular HGB Conc 28 % (30-34); Mean Corpuscular Volume 77 fl (79-97); Platelet Count 136 K/mm3 (140-440); Red Blood Count 4.74 M/mm3 (3.65-5.03)
[2018-11-16 00:32] LABS: Hematocrit 36.6 % (30.3-42.9); Hemoglobin 10.4 gm/dl (10.1-14.3); Red Cell Distribution Width 21.3 % (13.2-15.2)
[2018-11-16 00:40] LABS: BUN/Creatinine Ratio 36; Blood Urea Nitrogen 18 mg/dL (7-17); Calcium 8.5 mg/dL (8.4-10.2); Hemolysis Index 210
[2018-11-16 01:44] LABS: Basophils % (Manual) 0 % (0.0-1.8); Eosinophils % (Manual) 0 % (0.0-4.3); Hypochromasia 2+; Total Cells Counted 100
[2018-11-16 01:45] LABS: Anisocytosis 1+; Giant Platelets 1+
[2018-11-16] MEDS: FREE WATER PO SCH ×6 (02:00→21:54)
[2018-11-16] MEDS: IPRATROPIUM/ALBUTEROL SULFATE 3 ML AMPUL.NEB IH SCH ×4 (02:16→19:20)
[2018-11-16] MEDS: methylPREDNISolone Sod Succinate 125 MG/2 ML INJ IV SCH ×3 (06:00→21:19)
--- NOTE | 2018-11-16 08:01 | XRay Report ---
CHEST 1 VIEW 7:44 AM INDICATION / CLINICAL INFORMATION: Follow-up respiratory failure. COMPARISON: Yesterday. FINDINGS: SUPPORT DEVICES: The positions of the endotracheal tube and nasogastric tube have not changed. HEART / MEDIASTINUM: Mild cardiomegaly and prominence of the central pulmonary vasculature are stable . LUNGS / PLEURA: Mild interstitial lung disease has not changed. Left retrocardiac opacity has increas ed. No pneumothorax. ADDITIONAL FINDINGS: No significant additional findings. IMPRESSION: 1. Mild interstitial edema is stable. 2. Increasing left lower lobe atelectasis/consolidation. Signer Name: Cristopher Cobos MD Signed: 11/16/2018 7:56 AM Workstation Name: [id number]
[2018-11-16 08:52] LABS: ABG Base Excess -0.9 mmol/L (-2.0-3.0); ABG HCO3 27.3 mmol/L (20.0-26.0); ABG PH 7.247 pH Units (7.350-7.450); ABG PO2 65.7 mm Hg (80.0-90.0)
[2018-11-16 08:54] LABS: ABG Methemoglobin 0.5 % (0.0-1.5); ABG Oxygen Saturation 89.9 % (95.0-99.0)
[2018-11-16] MEDS: fentaNYL DRIP Premix 2,000 MCG/100 ML BAG IV SCH ×2 (10:28→18:00)
[2018-11-16] MEDS: FAMOTIDINE 20 MG TAB PO SCH ×2 (10:38→21:19)
[2018-11-16] MEDS: NICOTINE 14 MG/24 HR PATCH TD SCH (10:38)
[2018-11-16] MEDS: ENOXAPARIN 40 MG/0.4 ML INJ SUB-Q SCH (10:38)
--- NOTE | 2018-11-16 11:15 | Progress Note ---
Assessment and Plan -Acute and chronic hypoxic-hypercapnic respiratory failure -AE-COPD -Tobacco use disorder/Nicotine dependence( on going) -Hypernatremia -History of HTN, hypotensive at presentation -Chronic narcotic dependence -Chronic back pain -Anxiety disorder Resume all chronic home anti-psychotics -VAP bundle addressed -Adjust minute ventilation for better acid base balance -Lung protective strategies -Oxygen restrictive strategies- PaO2 of 60 with O2 sats 88-90% is acceptable -Bronchodilators -Continue with fentanyl, titrate for RAAS of 0 to -1 -Maintenance of sleep-wake cycle, avoid delirium -Daily SAT and SBT as tolerated -Add night Seroquel, prior history of agitation and anxiety -Stop NS infusion, and change to D5 0.2Nsaline -ABG, CBC and BMP in the morning -Start nutritional support with Vital 1.2 -Accuchecks with glycemic control -While critically ill target blood glucose of 140-180 mg/dL; avoid hypoglycemic -VTE prophylaxis(enoxaparin) -Stress ulcer prophylaxis( Famotidine) -Steroids -Bronchodilators -Antibiotics for severe AE-COPD( Levofloxacin adn azithromycin) -Hold home antihypertensives fro now -Monitor hemodynamics closely -Avoid delirium -Nicotine withdrawal precautions, nicotine patch Based on previous sputum cultures, antibiotics adjusted. Tracheal aspirate re- ordered CONDITION: CRITICAL PROGNOSIS: GUARDED CODE STATUS: FULL CODE Discussed care plan extensively with RT and RN at the bedside. Discussed with care team in ICU-IDT rounds The high probability of a clinically significant, sudden or life-threatening deterioration of the respiratory, cardiovascular, neurology, endocrine system(s) required my full and direct attention, intervention and personal management. The aggregate critical care time was [35] minutes without overlap. Time includes spent on; [x] Data Review and interpretation [x] Patient assessment and monitoring of vital signs [x] Documentation [x] Medication orders and management Subjective Date of service: 11/16/18 Interval history: Patient is seen today for: Ac and ch hypoxic hypercapnic resp failure; AE-COPD; Tobacco use disorder/Nicotine dependence; Hypernatremia; HTN (hypotensive at presentation 0; Chronic narcotic dependence ; Chronic back pain; Anxiety disorder Seen and examined at bedside; 24-hour events reviewed; nursing and respiratory care staff consulted; no adverse overnight events reported to me; laying in bed; intermittently agitated despite sedation; No emesis or overt aspiration; low grade fevers, remains on IV infusions for agitation management; on full mechanical ventilatory support Objective - Exam Narrative Exam: General appearance: Sedated ETT at 23cm, to MVS No patient-ventilator dys-synchrony, intermittent agitation Kyphotic Eyes: anicteric sclerae, moist conjunctivae; no lid-lag; PERRLA HENT: Atraumatic; oropharynx +ETT +OGT Lungs: emma rhonchi with dimished AE bilaterally CV: RRR no murmur Abdomen: Soft, non-tender; no masses or hepatosplenomegaly Extremities: no edema, no cyanosis Skin: multiple emma arms ecchymoses Psych: no agitated Neuro: Moves spontaneously. Vital Signs - 12hr 11/15/18 11/15/18 11/15/18 23:15 23:31 23:45 Temperature Pulse Rate 111 H 124 H 107 H Pulse Rate [ Bilateral Bases ] Pulse Rate [ From Monitor] Respiratory 25 H 25 H 25 H Rate Respiratory Rate [Bilateral Bases] Blood Pressure 101/50 107/53 107/53 O2 Sat by Pulse 88 94 Oximetry 11/16/18 11/16/18 11/16/18 00:00 00:15 00:31 Temperature 98.2 F Pulse Rate 105 H 115 H 147 H Pulse Rate [ Bilateral Bases ] Pulse Rate [ From Monitor] Respiratory 25 H 17 Rate Respiratory Rate [Bilateral Bases] Blood Pressure 88/48 137/63 90/46 O2 Sat by Pulse 91 91 91 Oximetry 11/16/18 11/16/18 11/16/18 00:45 00:57 01:01 Temperature Pulse Rate 116 H 158 H Pulse Rate [ Bilateral Bases ] Pulse Rate [ 95 H From Monitor] Respiratory 24 26 H 29 H Rate Respiratory Rate [Bilateral Bases] Blood Pressure 150/115 93/42 O2 Sat by Pulse 97 86 Oximetry 11/16/18 11/16/18 11/16/18 01:15 01:31 01:45 Temperature Pulse Rate 117 H 143 H 118 H Pulse Rate [ Bilateral Bases ] Pulse Rate [ From Monitor] Respiratory 25 H 22 25 H Rate Respiratory Rate [Bilateral Bases] Blood Pressure 99/50 99/50 95/46 O2 Sat by Pulse 93 86 94 Oximetry 11/16/18 11/16/18 11/16/18 02:01 02:15 02:19 Temperature Pulse Rate 148 H 115 H Pulse Rate [ 143 H Bilateral Bases ] Pulse Rate [ From Monitor] Respiratory 23 25 H Rate Respiratory 24 Rate [Bilateral Bases] Blood Pressure 95/46 137/63 O2 Sat by Pulse 86 Oximetry 11/16/18 11/16/18 11/16/18 02:31 02:45 03:01 Temperature Pulse Rate 138 H 135 H 136 H Pulse Rate [ Bilateral Bases ] Pulse Rate [ From Monitor] Respiratory 23 22 16 Rate Respiratory Rate [Bilateral Bases] Blood Pressure 137/63 137/66 137/66 O2 Sat by Pulse 94 90 Oximetry 11/16/18 11/16/18 11/16/18 03:15 03:40 03:46 Temperature Pulse Rate 135 H 122 H 139 H Pulse Rate [ Bilateral Bases ] Pulse Rate [ From Monitor] Respiratory 25 H 25 H 22 Rate Respiratory Rate [Bilateral Bases] Blood Pressure 137/66 O2 Sat by Pulse 92 95 91 Oximetry 11/16/18 11/16/18 11/16/18 03:48 03:50 04:00 Temperature 97.2 F L Pulse Rate 122 H 153 H Pulse Rate [ Bilateral Bases ] Pulse Rate [ 95 H From Monitor] Respiratory 26 H 27 H Rate Respiratory Rate [Bilateral Bases] Blood Pressure 137/63 O2 Sat by Pulse 97 83 L Oximetry 11/16/18 11/16/18 11/16/18 04:16 04:30 04:46 Temperature Pulse Rate 147 H 122 H 129 H Pulse Rate [ Bilateral Bases ] Pulse Rate [ From Monitor] Respiratory 16 25 H 26 H Rate Respiratory Rate [Bilateral Bases] Blood Pressure 137/63 137/63 107/32 O2 Sat by Pulse 86 90 Oximetry 11/16/18 11/16/18 11/16/18 05:00 05:16 05:30 Temperature Pulse Rate 148 H 130 H 141 H Pulse Rate [ Bilateral Bases ] Pulse Rate [ From Monitor] Respiratory 25 H 17 20 Rate Respiratory Rate [Bilateral Bases] Blood Pressure 122/58 122/58 122/58 O2 Sat by Pulse 84 97 86 Oximetry 11/16/18 11/16/18 11/16/18 05:46 06:00 06:16 Temperature Pulse Rate 129 H 130 H 140 H Pulse Rate [ Bilateral Bases ] Pulse Rate [ From Monitor] Respiratory 17 15 27 H Rate Respiratory Rate [Bilateral Bases] Blood Pressure 122/58 126/58 126/58 O2 Sat by Pulse 92 91 83 L Oximetry 11/16/18 11/16/18 11/16/18 06:30 06:46 07:00 Temperature Pulse Rate 132 H 130 H 129 H Pulse Rate [ Bilateral Bases ] Pulse Rate [ From Monitor] Respiratory 22 12 24 Rate Respiratory Rate [Bilateral Bases] Blood Pressure 126/58 126/58 126/58 O2 Sat by Pulse 94 90 91 Oximetry 11/16/18 11/16/18 11/16/18 07:12 07:16 07:30 Temperature Pulse Rate 132 H 130 H 124 H Pulse Rate [ Bilateral Bases ] Pulse Rate [ From Monitor] Respiratory 25 H 24 Rate Respiratory Rate [Bilateral Bases] Blood Pressure 119/61 119/61 119/61 O2 Sat by Pulse 95 92 88 Oximetry 11/16/18 11/16/18 11/16/18 07:46 08:00 11:06 Temperature 98.6 F Pulse Rate 133 H 122 H 122 H Pulse Rate [ Bilateral Bases ] Pulse Rate [ From Monitor] Respiratory 20 25 H Rate Respiratory Rate [Bilateral Bases] Blood Pressure 115/51 121/61 131/67 O2 Sat by Pulse 86 89 90 Oximetry CBC and BMP: 11/22/18 04:18 11/22/18 04:18 ABG, PT/INR, D-dimer: ABG POC ABG pH 7.291 (7.35-7.45) L 11/15/18 06:18 ABG pH 7.247 pH Units (7.350-7.450) L 11/16/18 05:10 POC ABG pCO2 65.4 (35-45) H 11/15/18 06:18 ABG pCO2 64.0 mm Hg 11/16/18 05:10 POC ABG pO2 65 (80-105) L 11/15/18 06:18 ABG pO2 65.7 mm Hg (80.0-90.0) L 11/16/18 05:10 POC ABG HCO3 31.5 (22-26 mml/L) 11/15/18 06:18 POC ABG Total CO2 33 (23-27mmol/L) 11/15/18 06:18 POC ABG O2 Sat 89 11/15/18 06:18 ABG O2 Saturation 89.9 % (95.0-99.0) L 11/16/18 05:10 PT/INR, D-dimer PT 14.1 Sec. (12.2-14.9) 11/14/18 19:39 INR 1.12 (0.87-1.13) 11/14/18 19:39 Abnormal lab findings: Abnormal Labs 11/14/18 11/14/18 11/14/18 18:59 19:39 19:39 WBC RBC 5.30 H MCV MCH 23 L MCHC 29 L RDW 20.5 H Plt Count 132 L Lymph % (Auto) 7.2 L Lymph # 0.6 L Seg Neutrophils % 87.1 H Seg Neuts % (Manual) Lymphocytes % (Manual) Seg Neutrophils # Man Lymphocytes # (Manual) POC ABG pH ABG pH POC ABG pCO2 POC ABG pO2 ABG pO2 ABG HCO3 ABG O2 Saturation ABG Base Excess ABG Hemoglobin ABG Carboxyhemoglobin Oxyhemoglobin Sodium 147 H Potassium Chloride Carbon Dioxide 35 H BUN Creatinine 0.4 L Glucose 121 H POC Glucose 129 H Calcium ALT 6 L Total Protein 6.2 L Albumin 3.4 L 11/14/18 11/15/18 11/15/18 20:45 04:20 04:20 WBC RBC 5.36 H MCV 78 L MCH 22 L MCHC 28 L RDW 20.5 H Plt Count 124 L Lymph % (Auto) Lymph # Seg Neutrophils % Seg Neuts % (Manual) 92.0 H Lymphocytes % (Manual) 6.0 L Seg Neutrophils # Man Lymphocytes # (Manual) 0.4 L POC ABG pH ABG pH 7.346 L POC ABG pCO2 POC ABG pO2 ABG pO2 ABG HCO3 32.4 H ABG O2 Saturation ABG Base Excess 5.3 H ABG Hemoglobin 11.0 L ABG Carboxyhemoglobin 6.4 H Oxyhemoglobin 90.0 L Sodium 146 H Potassium Chloride 107.6 H Carbon Dioxide BUN Creatinine 0.4 L Glucose 132 H POC Glucose Calcium 8.1 L ALT Total Protein Albumin 11/15/18 11/15/18 11/15/18 06:18 12:36 18:06 WBC RBC MCV MCH MCHC RDW Plt Count Lymph % (Auto) Lymph # Seg Neutrophils % Seg Neuts % (Manual) Lymphocytes % (Manual) Seg Neutrophils # Man Lymphocytes # (Manual) POC ABG pH 7.291 L ABG pH POC ABG pCO2 65.4 H POC ABG pO2 65 L ABG pO2 ABG HCO3 ABG O2 Saturation ABG Base Excess ABG Hemoglobin ABG Carboxyhemoglobin Oxyhemoglobin Sodium Potassium Chloride Carbon Dioxide BUN Creatinine Glucose POC Glucose 149 H 171 H Calcium ALT Total Protein Albumin 11/15/18 11/16/18 11/16/18 23:42 00:11 00:11 WBC 11.2 H RBC MCV 77 L MCH 22 L MCHC 28 L RDW 21.3 H Plt Count 136 L Lymph % (Auto) Lymph # Seg Neutrophils % Seg Neuts % (Manual) 89.0 H Lymphocytes % (Manual) 6.0 L Seg Neutrophils # Man 10.0 H Lymphocytes # (Manual) 0.7 L POC ABG pH ABG pH POC ABG pCO2 POC ABG pO2 ABG pO2 ABG HCO3 ABG O2 Saturation ABG Base Excess ABG Hemoglobin ABG Carboxyhemoglobin Oxyhemoglobin Sodium Potassium 5.4 H D Chloride 109.5 H Carbon Dioxide BUN 18 H Creatinine 0.5 L Glucose 118 H POC Glucose 134 H Calcium ALT Total Protein Albumin 11/16/18 11/16/18 05:10 06:55 WBC RBC MCV MCH MCHC RDW Plt Count Lymph % (Auto) Lymph # Seg Neutrophils % Seg Neuts % (Manual) Lymphocytes % (Manual) Seg Neutrophils # Man Lymphocytes # (Manual) POC ABG pH ABG pH 7.247 L POC ABG pCO2 POC ABG pO2 ABG pO2 65.7 L ABG HCO3 27.3 H ABG O2 Saturation 89.9 L ABG Base Excess ABG Hemoglobin 10.5 L ABG Carboxyhemoglobin Oxyhemoglobin 87.9 L Sodium Potassium Chloride Carbon Dioxide BUN Creatinine Glucose POC Glucose 116 H Calcium ALT Total Protein Albumin
[2018-11-16] MEDS: busPIRone 5 MG TAB PO SCH ×2 (11:18→21:19)
[2018-11-16] MEDS: BACLOFEN 10 MG TAB PO SCH ×2 (11:18→21:19)
[2018-11-16] MEDS ORDERED: SIMPLE SYRUP 15 ML FEEDTUBE PRN ×2 (12:29)
[2018-11-16] MEDS ORDERED: SODIUM BICARBONATE 325 MG TAB FEEDTUBE PRN (12:29)
[2018-11-16] MEDS ORDERED: LIPASE 10,500/PROTEASE 25,000/AMYLASE 43,750 (UNITS) DR CAP FEEDTUBE PRN (12:29)
[2018-11-16] MEDS: VENLAFAXINE 25 MG TAB PO SCH ×2 (13:25→21:19)
--- NOTE | 2018-11-16 17:18 | Progress Note ---
Assessment and Plan - Patient Problems (1) COPD exacerbation Current Visit: Yes Status: Chronic Plan to address problem: Respiratory failure appears to be secondary to acute COPD exacerbationn.; She was currently intubated sedated pulmonology following we'll wean as tolerated. Empiric antibiotics. Nebulizes when indicated. Patient would tobacco abuse may be more difficult to wean. (2) Acute and chronic respiratory failure Current Visit: No Status: Acute Plan to address problem: Secondary to COPD exacerbation or underlying infection will treat empirically at this time with azithromycin. For hypoxemic respiratory failure. Continue supportive care. (3) Coronary artery disease Current Visit: No Status: Chronic Plan to address problem: Patient chest pain-free no chest pain or history of prior to his episode. May require further cardiac workup prior to discharge. (4) HTN (hypertension) Current Visit: No Status: Chronic Qualifiers: Hypertension type: essential hypertension Qualified Code(s): I10 - Essential (primary) hypertension Plan to address problem: Patient currently has optimal control blood pressure. No changes in management. (5) Nicotine dependence Current Visit: No Status: Chronic Qualifiers: Nicotine product type: cigarettes Plan to address problem: A she intubated we'll introduce nicotine patch when necessary. (6) Thrombocytopenia Current Visit: Yes Status: Acute Plan to address problem: Remains 136 stable no active bleeding. Etiology at this time could be infection History Interval history: Patient remains intubated today on fentanyl. Patient agitated required 4. restraints. Hospitalist Physical - Constitutional Vitals: Temp Pulse Resp BP Pulse Ox 100.4 F H 106 H 23 110/57 92 11/16/18 16:00 11/16/18 16:45 11/16/18 16:45 11/16/18 16:45 11/16/18 16:45 General appearance: Present: mild distress, disheveled, other (intubated sedated fentanyl.) - EENT Eyes: Present: PERRL - Neck Neck: Present: supple, normal ROM - Respiratory Respiratory: bilateral: diminished, rhonchi - Cardiovascular Rhythm: regular - Extremities Extremities: no ischemia, pulses intact, pulses symmetrical, normal temperature, normal color, Full ROM Extremity abnormal: edema Peripheral Pulses: within normal limits - Abdominal General gastrointestinal: soft, non-tender, non-distended, no hepatomegaly, no splenomegaly - Integumentary Integumentary: Present: clear, warm, dry Results - Labs CBC & Chem 7: 11/16/18 00:11 11/16/18 00:11 Labs: Laboratory Last Values WBC 11.2 K/mm3 (4.5-11.0) H 11/16/18 00:11 RBC 4.74 M/mm3 (3.65-5.03) 11/16/18 00:11 Hgb 10.4 gm/dl (10.1-14.3) 11/16/18 00:11 Hct 36.6 % (30.3-42.9) 11/16/18 00:11 MCV 77 fl (79-97) L 11/16/18 00:11 MCH 22 pg (28-32) L 11/16/18 00:11 MCHC 28 % (30-34) L 11/16/18 00:11 RDW 21.3 % (13.2-15.2) H 11/16/18 00:11 Plt Count 136 K/mm3 (140-440) L 11/16/18 00:11 Lymph % (Auto) [employer] Supervisor 11/15/18 04:20 [place] % (Auto) [employer] Supervisor 11/15/18 04:20 Eos % (Auto) [employer] Supervisor 11/15/18 04:20 Baso % (Auto) [employer] Supervisor 11/15/18 04:20 Lymph # [employer] Supervisor 11/15/18 04:20 [place] # [employer] Supervisor 11/15/18 04:20 Eos # [employer] [employer] Supervisor 11/15/18 04:20 Baso # [employer] Supervisor 11/15/18 04:20 Add Manual Diff Complete 11/16/18 00:11 Total Counted 100 11/16/18 00:11 Seg Neutrophils % [employer] Supervisor 11/16/18 00:11 Seg Neuts % (Manual) 89.0 % (40.0-70.0) H 11/16/18 00:11 Band Neutrophils % 0 % 11/16/18 00:11 Lymphocytes % (Manual) 6.0 % (13.4-35.0) L 11/16/18 00:11 Reactive Lymphs % (Man) 0 % 11/16/18 00:11 Monocytes % (Manual) 5.0 % (0.0-7.3) 11/16/18 00:11 Eosinophils % (Manual) 0 % (0.0-4.3) 11/16/18 00:11 Basophils % (Manual) 0 % (0.0-1.8) 11/16/18 00:11 Metamyelocytes % 0 % 11/16/18 00:11 Myelocytes % 0 % 11/16/18 00:11 Promyelocytes % 0 % 11/16/18 00:11 Blast Cells % 0 % 11/16/18 00:11 Nucleated RBC % Not Reportable 11/16/18 00:11 Seg Neutrophils # [place] [employer] Supervisor 11/15/18 04:20 Seg Neutrophils # Man 10.0 K/mm3 (1.8-7.7) H 11/16/18 00:11 Band Neutrophils # 0.0 K/mm3 11/16/18 00:11 Lymphocytes # (Manual) 0.7 K/mm3 (1.2-5.4) L 11/16/18 00:11 Abs React Lymphs (Man) 0.0 K/mm3 11/16/18 00:11 Monocytes # (Manual) 0.6 K/mm3 (0.0-0.8) 11/16/18 00:11 Eosinophils # (Manual) 0.0 K/mm3 (0.0-0.4) 11/16/18 00:11 Basophils # (Manual) 0.0 K/mm3 (0.0-0.1) 11/16/18 00:11 Metamyelocytes # 0.0 K/mm3 11/16/18 00:11 Myelocytes # 0.0 K/mm3 11/16/18 00:11 Promyelocytes # 0.0 K/mm3 11/16/18 00:11 Blast Cells # 0.0 K/mm3 11/16/18 00:11 WBC Morphology Not Reportable 11/16/18 00:11 Hypersegmented Neuts Not Reportable 11/16/18 00:11 Hyposegmented Neuts Not Reportable 11/16/18 00:11 Hypogranular Neuts Not Reportable 11/16/18 00:11 Smudge Cells Not Reportable 11/16/18 00:11 Toxic Granulation Not Reportable 11/16/18 00:11 Toxic Vacuolation Not Reportable 11/16/18 00:11 Dohle Bodies Not Reportable 11/16/18 00:11 Pelger-Huet Anomaly Not Reportable 11/16/18 00:11 Neha Rods Not Reportable 11/16/18 00:11 Platelet Estimate Not Reportable 11/16/18 00:11 Clumped Platelets Not Reportable 11/16/18 00:11 Plt Clumps, EDTA Not Reportable 11/16/18 00:11 Large Platelets Not Reportable 11/16/18 00:11 Giant Platelets 1+ 11/16/18 00:11 Platelet Satelliting Not Reportable 11/16/18 00:11 Plt Morphology Comment Not Reportable 11/16/18 00:11 RBC Morphology Not Reportable 11/16/18 00:11 Dimorphic RBCs Not Reportable 11/16/18 00:11 Polychromasia Not Reportable 11/16/18 00:11 Hypochromasia 2+ 11/16/18 00:11 Poikilocytosis Not Reportable 11/16/18 00:11 Anisocytosis 1+ 11/16/18 00:11 Microcytosis Not Reportable 11/16/18 00:11 Macrocytosis Not Reportable 11/16/18 00:11 Spherocytes Not Reportable 11/16/18 00:11 Pappenheimer Bodies Not Reportable 11/16/18 00:11 Sickle Cells Not Reportable 11/16/18 00:11 Target Cells Not Reportable 11/16/18 00:11 Tear Drop Cells Not Reportable 11/16/18 00:11 Ovalocytes Not Reportable 11/16/18 00:11 Helmet Cells Not Reportable 11/16/18 00:11 [place] Bodies Not Reportable 11/16/18 00:11 [place] Rings Not Reportable 11/16/18 00:11 [place] Cells Not Reportable 11/16/18 00:11 Bite Cells Not Reportable 11/16/18 00:11 Crenated Cell Not Reportable 11/16/18 00:11 Elliptocytes Not Reportable 11/16/18 00:11 Acanthocytes (Spur) Not Reportable 11/16/18 00:11 Rouleaux Not Reportable 11/16/18 00:11 Hemoglobin C Crystals Not Reportable 11/16/18 00:11 Schistocytes Not Reportable 11/16/18 00:11 Malaria parasites Not Reportable 11/16/18 00:11 [place]an Bodies Not Reportable 11/16/18 00:11 Hem Pathologist Commnt No 11/16/18 00:11 PT 14.1 Sec. (12.2-14.9) 11/14/18 19:39 INR 1.12 (0.87-1.13) 11/14/18 19:39 POC ABG pH 7.291 (7.35-7.45) L 11/15/18 06:18 ABG pH 7.247 pH Units (7.350-7.450) L 11/16/18 05:10 POC ABG pCO2 65.4 (35-45) H 11/15/18 06:18 ABG pCO2 64.0 mm Hg 11/16/18 05:10 POC ABG pO2 65 (80-105) L 11/15/18 06:18 ABG pO2 65.7 mm Hg (80.0-90.0) L 11/16/18 05:10 POC ABG HCO3 31.5 (22-26 mml/L) 11/15/18 06:18 ABG HCO3 27.3 mmol/L (20.0-26.0) H 11/16/18 05:10 POC ABG Total CO2 33 (23-27mmol/L) 11/15/18 06:18 POC ABG O2 Sat 89 11/15/18 06:18 ABG O2 Saturation 89.9 % (95.0-99.0) L 11/16/18 05:10 ABG O2 Content 13.0 (0.0-44) 11/16/18 05:10 POC ABG Base Excess 5 ((-2) - (+3)mmol/L) 11/15/18 06:18 ABG Base Excess -0.9 mmol/L (-2.0-3.0) 11/16/18 05:10 ABG Hemoglobin 10.5 gm/dl (12.0-16.0) L 11/16/18 05:10 ABG Carboxyhemoglobin 1.7 % (0.0-5.0) 11/16/18 05:10 ABG Methemoglobin 0.5 % (0.0-1.5) 11/16/18 05:10 Oxyhemoglobin 87.9 % (95.0-99.0) L 11/16/18 05:10 FiO2 50 % 11/16/18 05:10 Sodium 145 mmol/L (137-145) 11/16/18 00:11 Potassium 5.4 mmol/L (3.6-5.0) H D 11/16/18 00:11 Chloride 109.5 mmol/L (98-107) H 11/16/18 00:11 Carbon Dioxide 27 mmol/L (22-30) 11/16/18 00:11 Anion Gap 14 mmol/L 11/16/18 00:11 BUN 18 mg/dL (7-17) H 11/16/18 00:11 Creatinine 0.5 mg/dL (0.7-1.2) L 11/16/18 00:11 Estimated GFR > 60 ml/min 11/16/18 00:11 BUN/Creatinine Ratio 36 % 11/16/18 00:11 Glucose 118 mg/dL (65-100) H 11/16/18 00:11 POC Glucose 116 (70-105) H 11/16/18 06:55 Lactic Acid 0.80 mmol/L (0.7-2.0) 11/14/18 19:39 Calcium 8.5 mg/dL (8.4-10.2) 11/16/18 00:11 Total Bilirubin 0.20 mg/dL (0.1-1.2) 11/14/18 19:39 AST 13 units/L (5-40) 11/14/18 19:39 ALT 6 units/L (7-56) L 11/14/18 19:39 Alkaline Phosphatase 85 units/L (35-129) 11/14/18 19:39 Troponin T < 0.010 ng/mL (0.00-0.029) 11/15/18 04:20 Total Protein 6.2 g/dL (6.3-8.2) L 11/14/18 19:39 Albumin 3.4 g/dL (3.9-5) L 11/14/18 19:39 Albumin/Globulin Ratio 1.2 % 11/14/18 19:39 Urine Color Yellow (Yellow) 11/14/18 20:29 Urine Turbidity Clear (Clear) 11/14/18 20:29 Urine pH 5.0 (5.0-7.0) 11/14/18 20:29 Ur Specific [place] 1.026 (1.003-1.030) 11/14/18 20:29 Urine Protein 100 mg/dl mg/dL (Negative) 11/14/18 20:29 Urine Glucose (UA) Neg mg/dL (Negative) 11/14/18 20:29 Urine Ketones Neg mg/dL (Negative) 11/14/18 20:29 Urine Blood Sm (Negative) 11/14/18 20:29 Urine Nitrite Neg (Negative) 11/14/18 20:29 Urine Bilirubin Neg (Negative) 11/14/18 20:29 Urine Urobilinogen < 2.0 mg/dL (<2.0) 11/14/18 20:29 Ur Leukocyte Esterase Neg (Negative) 11/14/18 20:29 Urine WBC (Auto) 6.0 /HPF (0.0-6.0) 11/14/18 20:29 Urine RBC (Auto) 16.0 /HPF (0.0-6.0) 11/14/18 20:29 U Epithel Cells (Auto) 1.0 /HPF (0-13.0) 11/14/18 20:29 Urine Bacteria (Auto) 1+ /HPF (Negative) 11/14/18 20:29 Hyaline Casts 36 /LPF 11/14/18 20:29 Urine Mucus 1+ /HPF 11/14/18 20:29 - Imaging and Cardiology Chest x-ray: report reviewed Imaging and Cardiology: Cardiogram echocardiogram Active Medications - Current Medications Current Medications: Generic Name Dose Route Start Last Admin Trade Name Freq PRN Reason Stop Dose Admin Acetaminophen 650 mg 11/14/18 22:11 Tylenol PO Q4H PRN Pain MILD(1-3)/Fever >100.5/PRAJAPATI Albuterol/Ipratropium 1 ampul 11/15/18 02:00 11/16/18 15:07 Duoneb *Not For Prn Use* IH 1 ampul Q6HRT [facility] Administration Lipase/Protease/Amylase 1 each 11/16/18 12:29 Pancrejohanne Pereira 10,500 Unit FEEDTUBE PRN PRN For Clogged Feeding Tube Baclofen 10 mg 11/16/18 11:00 11/16/18 11:18 Lioresal PO 10 mg BID DOMINICK Administration Buspirone HCl 5 mg 11/16/18 11:00 11/16/18 11:18 Buspar PO 5 mg BID DOMINICK Administration Enoxaparin Sodium 40 mg 11/16/18 10:00 11/16/18 10:38 Lovenox SUB-Q 40 mg QDAY@1000 DOMINICK Administration Famotidine 20 mg 11/16/18 10:00 11/16/18 10:38 Pepcid PO 20 mg BID DOMINICK Administration Fentanyl 50 mcg 11/14/18 19:14 Sublimaze IV Q10MIN PRN ANALGESIA Hydrophilic Ointment 1 applic 11/14/18 19:14 Vaseline Lip Therapy TP Q2HR PRN Dry Lips Fentanyl Citrate 2,000 mcg in 100 mls @ 3.629 mls/hr 11/14/18 20:00 11/16/18 14:20 Fentanyl Drip Premix IV 3 mcg/kg/hr TITR DOMINICK 10.886 mls/hr Titration Protocol 1 MCG/KG/HR Levofloxacin/Dextrose 750 mg in 150 mls @ 100 mls/hr 11/15/18 20:00 11/15/18 20:05 Levaquin 750mg/150ml IV 100 mls/hr Q24H DOMINICK Administration Protocol Methylprednisolone Sodium Succinate 60 mg 11/15/18 22:00 11/16/18 13:25 Solu-Medrol IV 60 mg Q8HR DOMINICK Administration Midazolam HCl 2 mg 11/14/18 19:14 Versed IV Q10MIN PRN Sedation Multi-Ingred Cream/Lotion/Oil/Oint 1 applic 11/14/18 19:14 Artificial Tears Ophth Oint OU Q4HR PRN Dry Eye(s) Nicotine 14 mg 11/15/18 16:00 11/16/18 10:38 Habitrol TD 14 mg QDAY DOMINICK Administration Ondansetron HCl 4 mg 11/14/18 22:11 Zofran IV Q8H PRN Nausea And Vomiting Quetiapine Fumarate 25 mg 11/15/18 22:00 11/15/18 21:06 Seroquel PO 25 mg QHS DOMINICK Administration Simple Syrup 15 ml 11/16/18 12:29 Simple Syrup FEEDTUBE PRN PRN Hypoglycemia Simple Syrup 30 ml 11/16/18 12:29 Simple Syrup FEEDTUBE PRN PRN Hypoglycemia Sodium Bicarbonate 325 mg 11/16/18 12:29 Sodium Bicarbonate FEEDTUBE PRN PRN For Clogged Feeding Tube Sodium Chloride 10 ml 11/15/18 10:00 11/16/18 10:39 Sodium Chloride Flush Syringe 10 Ml IV 10 ml BID DOMINICK Administration Sodium Chloride 10 ml 11/14/18 22:11 Sodium Chloride Flush Syringe 10 Ml IV PRN PRN LINE FLUSH Venlafaxine HCl 100 mg 11/16/18 14:00 11/16/18 13:25 Effexor PO 100 mg TID DOMINICK Administration Nutrition/Malnutrition Assess - Dietary Evaluation Nutrition/Malnutrition Findings: Nutrition Notes Start: 11/16/18 08:00 Freq: Status: Active Protocol: Document 11/16/18 08:00 LM (Rec: 11/16/18 08:14 LM [id number]) Nutrition Notes Need for Assessment generated from: MD Order Initial or Follow up Assessment Current Diagnosis COPD,Coronary Artery Disease, Hypertension Other Pertinent Diagnosis Nicotine dependence Current Diet NPO Labs/Tests K 5.4 BUN 18 Cr 0.5 BG 118 Pertinent Medications Solumedrol Height 5 ft 2 in Weight 75.9 kg [place] Body Weight (kg) 50.00 BMI 30.6 Subjective/Other Information MD consult to evaluate nutritional intake. Pt on vent . Verbal MD consult to start TF today at rounds. Burn Absent Trauma Absent Minimum of two criteria No #1 Nutrition Diagnosis Inadequate oral intake Etiology Mechanical vent As Evidenced by Signs and Symptoms pt NPO Is patient on ventilator? Yes Is Patient Ambulatory and/or Out of Bed No REE-([facility]-confined to bed) 1543.545 Calculation Used for Recommendations [facility] Additional Notes Protein: 100g (>2g/kg IBW 50 kg) Fluid: 1 ml/kcal Nutrition Intervention Change Diet Order: Recommend TF when medically feasible Nutrition Support: Vital AF 1.2 at 55 ml/hr Flush 100 ml q4hr Kcal 1,584 Protein (gm) 99 Fluid (mL) 1,071 Goal #1 TF start/tolerance Anticipated Discharge Needs: unable to determine at this time Follow-Up By: 11/17/18 Additional Comments F/U for TF start/tolerance
[2018-11-16] MEDS: QUEtiapine 25 MG TAB PO SCH (21:19)
[2018-11-17] MEDS: fentaNYL DRIP Premix 2,000 MCG/100 ML BAG IV SCH ×4 (00:11→20:15)
[2018-11-17] MEDS: FREE WATER PO SCH ×6 (01:50→21:28)
[2018-11-17] MEDS: MIDAZOLAM 2 MG/2 ML INJ IV PRN (01:50)
[2018-11-17] MEDS: IPRATROPIUM/ALBUTEROL SULFATE 3 ML AMPUL.NEB IH SCH ×4 (02:50→19:18)
--- NOTE | 2018-11-17 03:17 | XRay Report ---
CHEST 1 VIEW 11/17/2018 2:14 AM INDICATION / CLINICAL INFORMATION: follow up respiratory failure. COMPARISON: 11/16/18 FINDINGS: SUPPORT DEVICES: Stable, satisfactory device positioning. HEART / MEDIASTINUM: Stable. LUNGS / PLEURA: Stable bibasilar densities. No pneumothorax. ADDITIONAL FINDINGS: No significant additional findings. IMPRESSION: 1. No significant change. Signer Name: Stephen Hdz MD Signed: 11/17/2018 3:13 AM Workstation Name: [id number]
[2018-11-17] MEDS: ACETAMINOPHEN 325 MG TAB PO PRN ×2 (04:29→18:25)
[2018-11-17] MEDS: methylPREDNISolone Sod Succinate 125 MG/2 ML INJ IV SCH ×3 (06:09→21:28)
--- NOTE | 2018-11-17 09:24 | Progress Note ---
Assessment and Plan -Acute and chronic hypoxic-hypercapnic respiratory failure -AE-COPD -Tobacco use disorder/Nicotine dependence( on going) -Hypernatremia -History of HTN, hypotensive at presentation -Chronic narcotic dependence -Chronic back pain -Anxiety disorder ID consulted fro ongoing fevers CT chest without contrast -VAP bundle addressed -Lung protective strategies -Oxygen restrictive strategies- PaO2 of 60 with O2 sats 88-90% is acceptable -Bronchodilators -Continue with fentanyl, titrate for RAAS of 0 to -1 -Maintenance of sleep-wake cycle, avoid delirium -Daily SAT and SBT as tolerated -Continue Seroquel, prior history of agitation and anxiety -ABG, CBC and BMP in the morning, CXR in the morning -Start nutritional support with aspiration precautions -Accuchecks with glycemic control -While critically ill target blood glucose of 140-180 mg/dL; avoid hypoglycemia -VTE prophylaxis(enoxaparin) -Stress ulcer prophylaxis( Famotidine) -Steroids -Bronchodilators -Antibiotics for severe AE-COPD- MRSA and GNR coverage in view of recurrent recent hospitalizations -Continue to hold anti-hypertensives and monitor hemodynamics -Nicotine withdrawal precautions, nicotine patch CONDITION: CRITICAL PROGNOSIS: GUARDED CODE STATUS: FULL CODE In view of ongoing smoking, recurrent hospital admission, will need to re- address advance directives and goals of care, once the patient is able to be a part of that discussion. Will also address smoking cessation again, once she is able to be a part of that discussion Discussed care plan extensively with RT and RN at the bedside. The high probability of a clinically significant, sudden or life-threatening deterioration of the respiratory, cardiovascular, neurology, endocrine system(s) required my full and direct attention, intervention and personal management. The aggregate critical care time was [35] minutes without overlap. Time includes spent on; [x] Data Review and interpretation [x] Patient assessment and monitoring of vital signs [x] Documentation [x] Medication orders and management Subjective Date of service: 11/17/18 Interval history: Patient is seen today for: Ac and ch hypoxic hypercapnic resp failure; AE-COPD; Tobacco use disorder/Nicotine dependence; Hypernatremia; HTN (hypotensive at presentation ); Chronic narcotic dependence ; Chronic back pain; Anxiety disorder Seen and examined at bedside; 24-hour events reviewed; nursing and respiratory care staff consulted; no adverse overnight events reported to me; laying in bed; intermittently agitated despite sedation; No emesis or overt aspiration; on going low grade intermittent fevers, remains on IV infusions for agitation management; on full mechanical ventilatory support Objective - Exam Narrative Exam: General appearance: Sedated ETT at 23cm, to MVS No patient-ventilator dys-synchrony, intermittent agitation Kyphotic Eyes: anicteric sclerae, moist conjunctivae; no lid-lag; PERRLA HENT: Atraumatic; oropharynx +ETT +OGT Lungs: emma rhonchi with dimished AE bilaterally CV: RRR no murmur Abdomen: Soft, non-tender; no masses or hepatosplenomegaly Extremities: no edema, no cyanosis Skin: multiple emma arms ecchymoses Psych: no agitated Neuro: Moves spontaneously. Vital Signs - 12hr 11/16/18 11/16/18 11/16/18 21:30 21:45 21:50 Temperature Pulse Rate 122 H 114 H 113 H Pulse Rate [ Anterior Bilateral] Pulse Rate [ Bilateral Bases ] Pulse Rate [ From Monitor] Respiratory 25 H 25 H 23 Rate Respiratory Rate [Anterior Bilateral] Respiratory Rate [Bilateral Bases] Respiratory Rate [Medial Back] Blood Pressure 125/67 111/57 110/49 O2 Sat by Pulse 91 92 93 Oximetry 11/16/18 11/16/18 11/16/18 22:00 22:15 22:30 Temperature Pulse Rate 110 H 103 H 101 H Pulse Rate [ Anterior Bilateral] Pulse Rate [ Bilateral Bases ] Pulse Rate [ From Monitor] Respiratory 25 H 24 24 Rate Respiratory Rate [Anterior Bilateral] Respiratory Rate [Bilateral Bases] Respiratory 25 H Rate [Medial Back] Blood Pressure 98/50 93/52 92/50 O2 Sat by Pulse 93 92 91 Oximetry 11/16/18 11/16/18 11/16/18 22:45 23:00 23:15 Temperature Pulse Rate 103 H 100 H 98 H Pulse Rate [ Anterior Bilateral] Pulse Rate [ Bilateral Bases ] Pulse Rate [ From Monitor] Respiratory 25 H 25 H 24 Rate Respiratory Rate [Anterior Bilateral] Respiratory Rate [Bilateral Bases] Respiratory Rate [Medial Back] Blood Pressure 97/56 102/55 107/60 O2 Sat by Pulse 91 91 90 Oximetry 11/16/18 11/16/18 11/16/18 23:27 23:30 23:35 Temperature 100.8 F H Pulse Rate 104 H 103 H Pulse Rate [ Anterior Bilateral] Pulse Rate [ Bilateral Bases ] Pulse Rate [ From Monitor] Respiratory 25 H Rate Respiratory Rate [Anterior Bilateral] Respiratory Rate [Bilateral Bases] Respiratory Rate [Medial Back] Blood Pressure 110/64 107/60 O2 Sat by Pulse 88 92 Oximetry 11/16/18 11/17/18 11/17/18 23:45 00:00 00:16 Temperature Pulse Rate 103 H 104 H 102 H Pulse Rate [ Anterior Bilateral] Pulse Rate [ Bilateral Bases ] Pulse Rate [ 110 H From Monitor] Respiratory 19 25 H 25 H Rate Respiratory Rate [Anterior Bilateral] Respiratory Rate [Bilateral Bases] Respiratory Rate [Medial Back] Blood Pressure 108/57 105/60 137/72 O2 Sat by Pulse 92 92 86 Oximetry 11/17/18 11/17/18 11/17/18 00:30 00:45 01:00 Temperature Pulse Rate 110 H 104 H 103 H Pulse Rate [ Anterior Bilateral] Pulse Rate [ Bilateral Bases ] Pulse Rate [ From Monitor] Respiratory 25 H 22 25 H Rate Respiratory Rate [Anterior Bilateral] Respiratory Rate [Bilateral Bases] Respiratory Rate [Medial Back] Blood Pressure 110/56 105/59 107/59 O2 Sat by Pulse 93 93 92 Oximetry 11/17/18 11/17/18 11/17/18 01:15 01:30 01:46 Temperature Pulse Rate 102 H 120 H 131 H Pulse Rate [ Anterior Bilateral] Pulse Rate [ Bilateral Bases ] Pulse Rate [ From Monitor] Respiratory 25 H 25 H 19 Rate Respiratory Rate [Anterior Bilateral] Respiratory Rate [Bilateral Bases] Respiratory Rate [Medial Back] Blood Pressure 104/56 120/67 128/77 O2 Sat by Pulse 92 93 88 Oximetry 11/17/18 11/17/18 11/17/18 02:00 02:15 02:30 Temperature Pulse Rate 113 H 104 H 101 H Pulse Rate [ Anterior Bilateral] Pulse Rate [ Bilateral Bases ] Pulse Rate [ From Monitor] Respiratory 25 H 14 25 H Rate Respiratory Rate [Anterior Bilateral] Respiratory Rate [Bilateral Bases] Respiratory Rate [Medial Back] Blood Pressure 92/51 110/56 101/57 O2 Sat by Pulse 93 90 94 Oximetry 11/17/18 11/17/18 11/17/18 02:45 02:54 03:00 Temperature Pulse Rate 97 H 102 H Pulse Rate [ Anterior Bilateral] Pulse Rate [ 102 H Bilateral Bases ] Pulse Rate [ From Monitor] Respiratory 25 H 21 Rate Respiratory Rate [Anterior Bilateral] Respiratory 25 H Rate [Bilateral Bases] Respiratory Rate [Medial Back] Blood Pressure 98/53 102/59 O2 Sat by Pulse 93 95 Oximetry 11/17/18 11/17/18 11/17/18 03:15 03:28 03:30 Temperature 101.2 F H Pulse Rate 98 H 98 H Pulse Rate [ Anterior Bilateral] Pulse Rate [ Bilateral Bases ] Pulse Rate [ From Monitor] Respiratory 25 H 26 H Rate Respiratory Rate [Anterior Bilateral] Respiratory Rate [Bilateral Bases] Respiratory Rate [Medial Back] Blood Pressure 109/53 105/59 O2 Sat by Pulse 95 93 Oximetry 11/17/18 11/17/18 11/17/18 03:46 04:00 04:16 Temperature Pulse Rate 126 H 102 H 122 H Pulse Rate [ Anterior Bilateral] Pulse Rate [ Bilateral Bases ] Pulse Rate [ 110 H From Monitor] Respiratory 25 H 25 H 20 Rate Respiratory Rate [Anterior Bilateral] Respiratory Rate [Bilateral Bases] Respiratory Rate [Medial Back] Blood Pressure 137/77 135/70 147/103 O2 Sat by Pulse 90 92 89 Oximetry 11/17/18 11/17/18 11/17/18 04:30 04:45 04:51 Temperature Pulse Rate 120 H 117 H 116 H Pulse Rate [ Anterior Bilateral] Pulse Rate [ Bilateral Bases ] Pulse Rate [ From Monitor] Respiratory 24 19 Rate Respiratory Rate [Anterior Bilateral] Respiratory Rate [Bilateral Bases] Respiratory Rate [Medial Back] Blood Pressure 132/74 152/76 152/76 O2 Sat by Pulse 94 94 93 Oximetry 11/17/18 11/17/18 11/17/18 05:00 05:16 05:30 Temperature Pulse Rate 109 H 98 H 93 H Pulse Rate [ Anterior Bilateral] Pulse Rate [ Bilateral Bases ] Pulse Rate [ From Monitor] Respiratory 24 25 H 25 H Rate Respiratory Rate [Anterior Bilateral] Respiratory Rate [Bilateral Bases] Respiratory Rate [Medial Back] Blood Pressure 119/59 110/58 113/58 O2 Sat by Pulse 96 96 95 Oximetry 11/17/18 11/17/18 11/17/18 05:46 06:00 06:15 Temperature 101.2 F H Pulse Rate 129 H 95 H 91 H Pulse Rate [ Anterior Bilateral] Pulse Rate [ Bilateral Bases ] Pulse Rate [ From Monitor] Respiratory 21 25 H 20 Rate Respiratory Rate [Anterior Bilateral] Respiratory Rate [Bilateral Bases] Respiratory Rate [Medial Back] Blood Pressure 141/73 114/55 111/58 O2 Sat by Pulse 91 94 93 Oximetry 11/17/18 11/17/18 11/17/18 06:30 06:46 07:00 Temperature Pulse Rate 90 138 H 106 H Pulse Rate [ Anterior Bilateral] Pulse Rate [ Bilateral Bases ] Pulse Rate [ From Monitor] Respiratory 22 19 25 H Rate Respiratory Rate [Anterior Bilateral] Respiratory Rate [Bilateral Bases] Respiratory Rate [Medial Back] Blood Pressure 107/63 119/101 119/66 O2 Sat by Pulse 93 93 96 Oximetry 11/17/18 11/17/18 11/17/18 07:16 07:30 07:46 Temperature Pulse Rate 89 117 H 128 H Pulse Rate [ Anterior Bilateral] Pulse Rate [ Bilateral Bases ] Pulse Rate [ From Monitor] Respiratory 19 9 L 10 L Rate Respiratory Rate [Anterior Bilateral] Respiratory Rate [Bilateral Bases] Respiratory Rate [Medial Back] Blood Pressure 126/82 110/77 122/83 O2 Sat by Pulse 88 94 92 Oximetry 11/17/18 11/17/18 11/17/18 07:50 07:59 08:00 Temperature 100.7 F H Pulse Rate 125 H 132 H Pulse Rate [ 131 H Anterior Bilateral] Pulse Rate [ 125 H Bilateral Bases ] Pulse Rate [ From Monitor] Respiratory 24 Rate Respiratory 25 H Rate [Anterior Bilateral] Respiratory 25 H Rate [Bilateral Bases] Respiratory Rate [Medial Back] Blood Pressure 122/83 122/83 O2 Sat by Pulse 92 93 Oximetry CBC and BMP: 11/22/18 04:18 11/22/18 04:18 ABG, PT/INR, D-dimer: ABG POC ABG pH 7.335 (7.35-7.45) L 11/17/18 04:56 ABG pH 7.247 pH Units (7.350-7.450) L 11/16/18 05:10 POC ABG pCO2 58.2 (35-45) H 11/17/18 04:56 ABG pCO2 64.0 mm Hg 11/16/18 05:10 POC ABG pO2 74 (80-105) L 11/17/18 04:56 ABG pO2 65.7 mm Hg (80.0-90.0) L 11/16/18 05:10 POC ABG HCO3 31.1 (22-26 mml/L) 11/17/18 04:56 POC ABG Total CO2 33 (23-27mmol/L) 11/17/18 04:56 POC ABG O2 Sat 93 11/17/18 04:56 ABG O2 Saturation 89.9 % (95.0-99.0) L 11/16/18 05:10 PT/INR, D-dimer PT 14.1 Sec. (12.2-14.9) 11/14/18 19:39 INR 1.12 (0.87-1.13) 11/14/18 19:39 Abnormal lab findings: Abnormal Labs 11/14/18 11/14/18 11/14/18 18:59 19:39 19:39 WBC RBC 5.30 H MCV MCH 23 L MCHC 29 L RDW 20.5 H Plt Count 132 L Lymph % (Auto) 7.2 L Lymph # 0.6 L Seg Neutrophils % 87.1 H Seg Neuts % (Manual) Lymphocytes % (Manual) Seg Neutrophils # Man Lymphocytes # (Manual) POC ABG pH ABG pH POC ABG pCO2 POC ABG pO2 ABG pO2 ABG HCO3 ABG O2 Saturation ABG Base Excess ABG Hemoglobin ABG Carboxyhemoglobin Oxyhemoglobin Sodium 147 H Potassium Chloride Carbon Dioxide 35 H BUN Creatinine 0.4 L Glucose 121 H POC Glucose 129 H Calcium ALT 6 L Total Protein 6.2 L Albumin 3.4 L 11/14/18 11/15/18 11/15/18 20:45 04:20 04:20 WBC RBC 5.36 H MCV 78 L MCH 22 L MCHC 28 L RDW 20.5 H Plt Count 124 L Lymph % (Auto) Lymph # Seg Neutrophils % Seg Neuts % (Manual) 92.0 H Lymphocytes % (Manual) 6.0 L Seg Neutrophils # Man Lymphocytes # (Manual) 0.4 L POC ABG pH ABG pH 7.346 L POC ABG pCO2 POC ABG pO2 ABG pO2 ABG HCO3 32.4 H ABG O2 Saturation ABG Base Excess 5.3 H ABG Hemoglobin 11.0 L ABG Carboxyhemoglobin 6.4 H Oxyhemoglobin 90.0 L Sodium 146 H Potassium Chloride 107.6 H Carbon Dioxide BUN Creatinine 0.4 L Glucose 132 H POC Glucose Calcium 8.1 L ALT Total Protein Albumin 11/15/18 11/15/18 11/15/18 06:18 12:36 18:06 WBC RBC MCV MCH MCHC RDW Plt Count Lymph % (Auto) Lymph # Seg Neutrophils % Seg Neuts % (Manual) Lymphocytes % (Manual) Seg Neutrophils # Man Lymphocytes # (Manual) POC ABG pH 7.291 L ABG pH POC ABG pCO2 65.4 H POC ABG pO2 65 L ABG pO2 ABG HCO3 ABG O2 Saturation ABG Base Excess ABG Hemoglobin ABG Carboxyhemoglobin Oxyhemoglobin Sodium Potassium Chloride Carbon Dioxide BUN Creatinine Glucose POC Glucose 149 H 171 H Calcium ALT Total Protein Albumin 11/15/18 11/16/18 11/16/18 23:42 00:11 00:11 WBC 11.2 H RBC MCV 77 L MCH 22 L MCHC 28 L RDW 21.3 H Plt Count 136 L Lymph % (Auto) Lymph # Seg Neutrophils % Seg Neuts % (Manual) 89.0 H Lymphocytes % (Manual) 6.0 L Seg Neutrophils # Man 10.0 H Lymphocytes # (Manual) 0.7 L POC ABG pH ABG pH POC ABG pCO2 POC ABG pO2 ABG pO2 ABG HCO3 ABG O2 Saturation ABG Base Excess ABG Hemoglobin ABG Carboxyhemoglobin Oxyhemoglobin Sodium Potassium 5.4 H D Chloride 109.5 H Carbon Dioxide BUN 18 H Creatinine 0.5 L Glucose 118 H POC Glucose 134 H Calcium ALT Total Protein Albumin 11/16/18 11/16/18 11/16/18 05:10 06:55 12:22 WBC RBC MCV MCH MCHC RDW Plt Count Lymph % (Auto) Lymph # Seg Neutrophils % Seg Neuts % (Manual) Lymphocytes % (Manual) Seg Neutrophils # Man Lymphocytes # (Manual) POC ABG pH ABG pH 7.247 L POC ABG pCO2 POC ABG pO2 ABG pO2 65.7 L ABG HCO3 27.3 H ABG O2 Saturation 89.9 L ABG Base Excess ABG Hemoglobin 10.5 L ABG Carboxyhemoglobin Oxyhemoglobin 87.9 L Sodium Potassium Chloride Carbon Dioxide BUN Creatinine Glucose POC Glucose 116 H 106 H Calcium ALT Total Protein Albumin 11/16/18 11/17/18 18:04 04:56 WBC RBC MCV MCH MCHC RDW Plt Count Lymph % (Auto) Lymph # Seg Neutrophils % Seg Neuts % (Manual) Lymphocytes % (Manual) Seg Neutrophils # Man Lymphocytes # (Manual) POC ABG pH 7.335 L ABG pH POC ABG pCO2 58.2 H POC ABG pO2 74 L ABG pO2 ABG HCO3 ABG O2 Saturation ABG Base Excess ABG Hemoglobin ABG Carboxyhemoglobin Oxyhemoglobin Sodium Potassium Chloride Carbon Dioxide BUN Creatinine Glucose POC Glucose 117 H Calcium ALT Total Protein Albumin
[2018-11-17] MEDS: busPIRone 5 MG TAB PO SCH ×2 (09:33→21:28)
[2018-11-17] MEDS: FAMOTIDINE 20 MG TAB PO SCH ×2 (09:33→21:28)
[2018-11-17] MEDS: VENLAFAXINE 25 MG TAB PO SCH ×3 (09:34→19:39)
[2018-11-17] MEDS: NICOTINE 14 MG/24 HR PATCH TD SCH (09:34)
[2018-11-17] MEDS: ENOXAPARIN 40 MG/0.4 ML INJ SUB-Q SCH (09:34)
[2018-11-17] MEDS ORDERED: VANCOMYCIN PHARMACY TO DOSE IV SCH (10:00)
[2018-11-17 10:04] LABS: Mean Corpuscular HGB Conc 28 % (30-34); Mean Corpuscular Volume 77 fl (79-97)
[2018-11-17 10:15] LABS: BUN/Creatinine Ratio 55; Blood Urea Nitrogen 22 mg/dL (7-17); Hemolysis Index 18
[2018-11-17 10:26] LABS: Hematocrit 37.7 % (30.3-42.9); Hemoglobin 10.7 gm/dl (10.1-14.3); Red Cell Distribution Width 20.4 % (13.2-15.2)
[2018-11-17] MEDS: BACLOFEN 10 MG TAB PO SCH ×2 (10:33→21:28)
[2018-11-17] MEDS: VANCOMYCIN 1,500 MG in SODIUM CHLORIDE 0.9% 500 ML 500 ML IV SCH ×2 (10:34→21:29)
[2018-11-17 11:21] LABS: Platelet Count 134 K/mm3 (140-440)
[2018-11-17] MEDS: PIPERACIL/TAZOBACTA 4.5/NS 100 4.5 GM/100 ML VIAL IV SCH ×3 (13:23→23:35)
--- NOTE | 2018-11-17 15:19 | Progress Note ---
Assessment and Plan /Acute on chronic combined respiratory failure requiring intubation: Respiratory failure appears to be secondary to acute COPD exacerbationn.; She was currently intubated sedated pulmonology following, we'll wean off as tolerated. cont Empiric antibiotics. Nebulizes when indicated. /End-stage COPD; with chronic hypoxia treat with iv steriods continue taper, abx, nebs around the clock / SIRS, cont empiric abx for now, ID consulted / HTN (hypertension) Patient currently has optimal control blood pressure. No changes in management. / Nicotine dependence we'll introduce nicotine patch when necessary. / Thrombocytopenia Remains 136 stable no active bleeding. Etiology at this time could be SIRS /Hypernatremia, cont to monitor BMP, iv fluid DVt Px, lovenox The high probability of a clinically significant, sudden or life threatening deterioration of the [multiple] system(s) required my full and direct attention, intervention and personal management. The aggregate critical care time was [35] minutes. This time is in addition to time spent performing reported procedures but includes the following: [x] Data Review and interpretation [x] Patient assessment and monitoring of vital signs [x] Documentation [x] Medication orders and management Brief History Pt is a 58 y/o CF with hx of COPD who presented to the ED via EMS on account of worsening sob. Apparently, the patient called 911 for shortness of breath. Per, EMS, he was noted to be saturating in the 60's in the field. She was given albuterol, steroids, and magnesium in the field. On arrival to the ED, the patie nt was altered, She was emergently intubated and placed on MV. Hospitalist Physical General appearance: Present: mild distress, disheveled, other (intubated, sedated on fentanyl.) Eyes: Present: PERRL ENT: other (patient is intubated), OGT in place, head flexed forward - Neck Neck: Present: supple - Respiratory Respiratory effort: normal Respiratory: bilateral: CTA, diminished - Cardiovascular Rhythm: regular Heart Sounds: Present: S1 & S2 - Extremities Extremities: No edema Peripheral Pulses: within normal limits - Abdominal General gastrointestinal: Present: soft, non-tender, normal bowel sounds Female genitourinary: Present: deferred - Rectal Rectal Exam: deferred - Integumentary Integumentary: Present: clear, warm, dry - Psychiatric Psychiatric: other (could not be obtained because patient is intubated and sedated) - Neurologic Neurologic: other (could not be obtained because patient is intubated and sedated) Subjective Date of service: 11/17/18 Interval history: Patient seen and examined. Medical records and medication list reviewed. No acute event overnight noted by the RN. Patient remained intubated and sedated, on 4 point restraint Objective - Constitutional Vitals: Vital Signs - 12hr 11/17/18 11/17/18 11/17/18 03:28 03:30 03:46 Temperature 101.2 F H Pulse Rate 98 H 126 H Pulse Rate [ Anterior Bilateral] Pulse Rate [ Bilateral Bases ] Pulse Rate [ From Monitor] Respiratory 26 H 25 H Rate Respiratory Rate [Anterior Bilateral] Respiratory Rate [Bilateral Bases] Blood Pressure 105/59 137/77 O2 Sat by Pulse 93 90 Oximetry 11/17/18 11/17/18 11/17/18 04:00 04:16 04:30 Temperature Pulse Rate 102 H 122 H 120 H Pulse Rate [ Anterior Bilateral] Pulse Rate [ Bilateral Bases ] Pulse Rate [ 110 H From Monitor] Respiratory 25 H 20 24 Rate Respiratory Rate [Anterior Bilateral] Respiratory Rate [Bilateral Bases] Blood Pressure 135/70 147/103 132/74 O2 Sat by Pulse 92 89 94 Oximetry 11/17/18 11/17/18 11/17/18 04:45 04:51 05:00 Temperature Pulse Rate 117 H 116 H 109 H Pulse Rate [ Anterior Bilateral] Pulse Rate [ Bilateral Bases ] Pulse Rate [ From Monitor] Respiratory 19 24 Rate Respiratory Rate [Anterior Bilateral] Respiratory Rate [Bilateral Bases] Blood Pressure 152/76 152/76 119/59 O2 Sat by Pulse 94 93 96 Oximetry 11/17/18 11/17/18 11/17/18 05:16 05:30 05:46 Temperature Pulse Rate 98 H 93 H 129 H Pulse Rate [ Anterior Bilateral] Pulse Rate [ Bilateral Bases ] Pulse Rate [ From Monitor] Respiratory 25 H 25 H 21 Rate Respiratory Rate [Anterior Bilateral] Respiratory Rate [Bilateral Bases] Blood Pressure 110/58 113/58 141/73 O2 Sat by Pulse 96 95 91 Oximetry 11/17/18 11/17/18 11/17/18 06:00 06:15 06:30 Temperature 101.2 F H Pulse Rate 95 H 91 H 90 Pulse Rate [ Anterior Bilateral] Pulse Rate [ Bilateral Bases ] Pulse Rate [ From Monitor] Respiratory 25 H 20 22 Rate Respiratory Rate [Anterior Bilateral] Respiratory Rate [Bilateral Bases] Blood Pressure 114/55 111/58 107/63 O2 Sat by Pulse 94 93 93 Oximetry 11/17/18 11/17/18 11/17/18 06:46 07:00 07:16 Temperature Pulse Rate 138 H 106 H 89 Pulse Rate [ Anterior Bilateral] Pulse Rate [ Bilateral Bases ] Pulse Rate [ From Monitor] Respiratory 19 25 H 19 Rate Respiratory Rate [Anterior Bilateral] Respiratory Rate [Bilateral Bases] Blood Pressure 119/101 119/66 126/82 O2 Sat by Pulse 93 96 88 Oximetry 11/17/18 11/17/18 11/17/18 07:30 07:46 07:50 Temperature Pulse Rate 117 H 128 H 125 H Pulse Rate [ Anterior Bilateral] Pulse Rate [ Bilateral Bases ] Pulse Rate [ From Monitor] Respiratory 9 L 10 L Rate Respiratory Rate [Anterior Bilateral] Respiratory Rate [Bilateral Bases] Blood Pressure 110/77 122/83 122/83 O2 Sat by Pulse 94 92 92 Oximetry 11/17/18 11/17/18 11/17/18 07:59 08:00 08:15 Temperature 100.7 F H Pulse Rate 132 H 119 H Pulse Rate [ 131 H Anterior Bilateral] Pulse Rate [ 125 H Bilateral Bases ] Pulse Rate [ From Monitor] Respiratory 24 23 Rate Respiratory 25 H Rate [Anterior Bilateral] Respiratory 25 H Rate [Bilateral Bases] Blood Pressure 122/83 127/67 O2 Sat by Pulse 93 96 Oximetry 11/17/18 11/17/18 11/17/18 08:30 08:46 09:00 Temperature Pulse Rate 133 H 123 H 118 H Pulse Rate [ Anterior Bilateral] Pulse Rate [ Bilateral Bases ] Pulse Rate [ From Monitor] Respiratory 12 26 H 26 H Rate Respiratory Rate [Anterior Bilateral] Respiratory Rate [Bilateral Bases] Blood Pressure 144/79 126/56 114/61 O2 Sat by Pulse 93 94 94 Oximetry 11/17/18 11/17/18 11/17/18 09:16 09:30 09:45 Temperature Pulse Rate 146 H 129 H 124 H Pulse Rate [ Anterior Bilateral] Pulse Rate [ Bilateral Bases ] Pulse Rate [ From Monitor] Respiratory 17 21 17 Rate Respiratory Rate [Anterior Bilateral] Respiratory Rate [Bilateral Bases] Blood Pressure 134/92 134/92 131/76 O2 Sat by Pulse 93 93 92 Oximetry 11/17/18 11/17/18 11/17/18 10:00 10:16 10:30 Temperature Pulse Rate 125 H 142 H 128 H Pulse Rate [ Anterior Bilateral] Pulse Rate [ Bilateral Bases ] Pulse Rate [ From Monitor] Respiratory 20 16 20 Rate Respiratory Rate [Anterior Bilateral] Respiratory Rate [Bilateral Bases] Blood Pressure 129/71 122/74 120/72 O2 Sat by Pulse 92 88 93 Oximetry 11/17/18 11/17/18 11/17/18 10:45 11:00 11:15 Temperature Pulse Rate 125 H 138 H 122 H Pulse Rate [ Anterior Bilateral] Pulse Rate [ Bilateral Bases ] Pulse Rate [ From Monitor] Respiratory 19 13 20 Rate Respiratory Rate [Anterior Bilateral] Respiratory Rate [Bilateral Bases] Blood Pressure 122/69 122/69 115/61 O2 Sat by Pulse 93 92 94 Oximetry 11/17/18 11/17/18 11/17/18 11:23 11:30 11:45 Temperature Pulse Rate 121 H 120 H 116 H Pulse Rate [ Anterior Bilateral] Pulse Rate [ Bilateral Bases ] Pulse Rate [ From Monitor] Respiratory 21 19 Rate Respiratory Rate [Anterior Bilateral] Respiratory Rate [Bilateral Bases] Blood Pressure 115/61 106/61 111/62 O2 Sat by Pulse 94 93 93 Oximetry 11/17/18 11/17/18 12:00 12:15 Temperature 99.1 F Pulse Rate 111 H 109 H Pulse Rate [ Anterior Bilateral] Pulse Rate [ Bilateral Bases ] Pulse Rate [ From Monitor] Respiratory 19 19 Rate Respiratory Rate [Anterior Bilateral] Respiratory Rate [Bilateral Bases] Blood Pressure 106/55 107/49 O2 Sat by Pulse 94 94 Oximetry - Labs CBC & Chem 7: 11/18/18 09:35 11/18/18 09:35 Labs: Abnormal lab results 11/16/18 11/16/18 11/17/18 Range/Units 12:22 18:04 04:56 WBC (4.5-11.0) K/mm3 MCV (79-97) fl MCH (28-32) pg MCHC (30-34) % RDW (13.2-15.2) % Plt Count (140-440) K/mm3 POC ABG pH 7.335 L (7.35-7.45) POC ABG pCO2 58.2 H (35-45) POC ABG pO2 74 L (80-105) Sodium (137-145) mmol/L Chloride (98-107) mmol/L BUN (7-17) mg/dL Creatinine (0.7-1.2) mg/dL POC Glucose 106 H 117 H (70-105) 11/17/18 11/17/18 Range/Units 09:26 09:26 WBC 15.1 H (4.5-11.0) K/mm3 MCV 77 L (79-97) fl MCH 22 L (28-32) pg MCHC 28 L (30-34) % RDW 20.4 H (13.2-15.2) % Plt Count 134 L (140-440) K/mm3 POC ABG pH (7.35-7.45) POC ABG pCO2 (35-45) POC ABG pO2 (80-105) Sodium 149 H (137-145) mmol/L Chloride 109.0 H (98-107) mmol/L BUN 22 H (7-17) mg/dL Creatinine 0.4 L (0.7-1.2) mg/dL POC Glucose (70-105)
[2018-11-17] MEDS: QUEtiapine 25 MG TAB PO SCH (21:28)
[2018-11-18] MEDS: fentaNYL DRIP Premix 2,000 MCG/100 ML BAG IV SCH ×4 (01:54→20:17)
[2018-11-18] MEDS: FREE WATER PO SCH ×6 (01:54→21:24)
--- NOTE | 2018-11-18 02:28 | XRay Report ---
CHEST 1 VIEW 11/18/2018 2:07 AM INDICATION / CLINICAL INFORMATION: follow up respiratory failure. COMPARISON: 11/17/18 FINDINGS: SUPPORT DEVICES: Stable, satisfactory device positioning. HEART / MEDIASTINUM: Stable. LUNGS / PLEURA: Stable bibasilar densities, left greater than right. No pneumothorax. ADDITIONAL FINDINGS: No significant additional findings. IMPRESSION: 1. No significant change. Signer Name: Stephen Hdz MD Signed: 11/18/2018 2:24 AM Workstation Name: [id number]
[2018-11-18] MEDS: IPRATROPIUM/ALBUTEROL SULFATE 3 ML AMPUL.NEB IH SCH ×4 (02:39→20:45)
[2018-11-18] MEDS: PIPERACIL/TAZOBACTA 4.5/NS 100 4.5 GM/100 ML VIAL IV SCH ×2 (05:58→11:41)
[2018-11-18] MEDS: methylPREDNISolone Sod Succinate 125 MG/2 ML INJ IV SCH ×3 (06:02→21:23)
[2018-11-18] MEDS: MIDAZOLAM 2 MG/2 ML INJ IV PRN (07:41)
[2018-11-18] MEDS: VENLAFAXINE 25 MG TAB PO SCH ×3 (07:54→21:23)
[2018-11-18] MEDS: ACETAMINOPHEN 325 MG TAB PO PRN ×2 (07:54→16:53)
[2018-11-18 09:52] LABS: Mean Corpuscular HGB Conc 29 % (30-34); Mean Corpuscular Volume 76 fl (79-97); Platelet Count 111 K/mm3 (140-440); Red Blood Count 4.81 M/mm3 (3.65-5.03)
[2018-11-18 09:55] LABS: Hematocrit 36.6 % (30.3-42.9); Hemoglobin 10.8 gm/dl (10.1-14.3); Red Cell Distribution Width 20.3 % (13.2-15.2)
[2018-11-18 10:12] LABS: BUN/Creatinine Ratio 50; Blood Urea Nitrogen 20 mg/dL (7-17); Calcium 8.7 mg/dL (8.4-10.2); Hemolysis Index 0
[2018-11-18] MEDS: BACLOFEN 10 MG TAB PO SCH ×2 (10:25→21:23)
[2018-11-18] MEDS: VANCOMYCIN 1,500 MG in SODIUM CHLORIDE 0.9% 500 ML 500 ML IV SCH ×2 (10:25→21:22)
[2018-11-18] MEDS: busPIRone 5 MG TAB PO SCH ×2 (10:25→21:24)
[2018-11-18] MEDS: NICOTINE 14 MG/24 HR PATCH TD SCH (10:26)
[2018-11-18] MEDS: FAMOTIDINE 20 MG TAB PO SCH ×2 (10:26→21:24)
--- NOTE | 2018-11-18 10:48 | Progress Note ---
Assessment and Plan -Acute and chronic hypoxic-hypercapnic respiratory failure -AE-COPD -HAP -Tobacco use disorder/Nicotine dependence( on going) -Hypernatremia -History of HTN, hypotensive at presentation -Chronic narcotic dependence -Chronic back pain -Anxiety disorder -VAP bundle addressed -Adjust minute ventilation for better acid base balance -Lung protective strategies -Oxygen restrictive strategies- PaO2 of 60 with O2 sats 88-90% is acceptable -Bronchodilators -Continue with fentanyl, titrate for RAAS of 0 to -1 -Maintenance of sleep-wake cycle, avoid delirium -Daily SAT and SBT as tolerated -Add night Seroquel, prior history of agitation and anxiety -Stop NS infusion, and change to D5 0.2Nsaline -ABG, CBC and BMP in the morning -Start nutritional support with Vital 1.2 -Accuchecks with glycemic control -While critically ill target blood glucose of 140-180 mg/dL; avoid hypoglycemic -VTE prophylaxis(enoxaparin) -Stress ulcer prophylaxis( Famotidine) -Steroids -Bronchodilators -Antibiotics for severe AE-COPD, discussed with ID- will change antibiotics, while awaiting CT chest -Continue to hold home antihypertensives fro now -Monitor hemodynamics closely -Avoid delirium -Nicotine withdrawal precautions, nicotine patch CONDITION: CRITICAL PROGNOSIS: GUARDED CODE STATUS: FULL CODE In view of ongoing smoking, recurrent hospital admission, will need to re- address advance directives and goals of care, once the patient is able to be a part of that discussion. Will also address smoking cessation again, once she is able to be a part of that discussion Discussed care plan extensively with RT and RN at the bedside. The high probability of a clinically significant, sudden or life-threatening deterioration of the respiratory, cardiovascular, neurology, endocrine system(s) required my full and direct attention, intervention and personal management. The aggregate critical care time was [35] minutes without overlap. Time includes spent on; [x] Data Review and interpretation [x] Patient assessment and monitoring of vital signs [x] Documentation [x] Medication orders and management Subjective Date of service: 11/18/18 Interval history: Patient is seen today for: Ac and ch hypoxic hypercapnic resp failure; AE-COPD; Tobacco use disorder/Nicotine dependence; Hypernatremia; HTN (hypotensive at presentation ); Chronic narcotic dependence ; Chronic back pain; Anxiety disorder Seen and examined at bedside; 24-hour events reviewed; nursing and respiratory care staff consulted; no adverse overnight events reported to me; laying in bed; intermittently agitated despite sedation; No emesis or overt aspiration; on going low grade intermittent fevers, remains on IV infusions for agitation management; on full mechanical ventilatory support Objective - Exam Narrative Exam: General appearance: Sedated ETT at 23cm, to MVS No patient-ventilator dys-synchrony, intermittent agitation Kyphotic Eyes: anicteric sclerae, moist conjunctivae; no lid-lag; PERRLA HENT: Atraumatic; oropharynx +ETT +OGT Lungs: emma rhonchi with dimished AE bilaterally CV: RRR no murmur Abdomen: Soft, non-tender; no masses or hepatosplenomegaly Extremities: no edema, no cyanosis Skin: multiple emma arms ecchymoses Psych: no agitated Neuro: Moves spontaneously. Vital Signs - 12hr 11/17/18 11/17/18 11/17/18 23:00 23:02 23:15 Temperature Pulse Rate 95 H 96 H 97 H Pulse Rate [ Anterior Bilateral] Pulse Rate [ Bilateral Bases ] Pulse Rate [ From Monitor] Respiratory 20 20 20 Rate Respiratory Rate [Anterior Bilateral] Respiratory Rate [Bilateral Bases] Blood Pressure 127/67 119/65 125/62 O2 Sat by Pulse 94 94 93 Oximetry 11/17/18 11/17/18 11/17/18 23:28 23:30 23:45 Temperature Pulse Rate 95 H 96 H 95 H Pulse Rate [ Anterior Bilateral] Pulse Rate [ Bilateral Bases ] Pulse Rate [ From Monitor] Respiratory 21 20 Rate Respiratory Rate [Anterior Bilateral] Respiratory Rate [Bilateral Bases] Blood Pressure 125/62 133/66 124/64 O2 Sat by Pulse 93 93 93 Oximetry 11/17/18 11/18/18 11/18/18 23:57 00:00 00:15 Temperature 99.9 F H Pulse Rate 99 H 98 H Pulse Rate [ Anterior Bilateral] Pulse Rate [ Bilateral Bases ] Pulse Rate [ 101 H From Monitor] Respiratory 20 20 Rate Respiratory Rate [Anterior Bilateral] Respiratory Rate [Bilateral Bases] Blood Pressure 121/60 120/61 O2 Sat by Pulse 93 93 Oximetry 11/18/18 11/18/18 11/18/18 00:30 00:45 01:00 Temperature Pulse Rate 97 H 99 H 97 H Pulse Rate [ Anterior Bilateral] Pulse Rate [ Bilateral Bases ] Pulse Rate [ From Monitor] Respiratory 21 20 20 Rate Respiratory Rate [Anterior Bilateral] Respiratory Rate [Bilateral Bases] Blood Pressure 124/65 129/63 122/67 O2 Sat by Pulse 93 93 93 Oximetry 11/18/18 11/18/18 11/18/18 01:15 01:30 01:45 Temperature Pulse Rate 97 H 99 H 98 H Pulse Rate [ Anterior Bilateral] Pulse Rate [ Bilateral Bases ] Pulse Rate [ From Monitor] Respiratory 20 20 20 Rate Respiratory Rate [Anterior Bilateral] Respiratory Rate [Bilateral Bases] Blood Pressure 130/68 128/62 127/63 O2 Sat by Pulse 93 93 93 Oximetry 11/18/18 11/18/18 11/18/18 02:00 02:15 02:30 Temperature Pulse Rate 98 H 113 H 97 H Pulse Rate [ Anterior Bilateral] Pulse Rate [ Bilateral Bases ] Pulse Rate [ From Monitor] Respiratory 21 19 20 Rate Respiratory Rate [Anterior Bilateral] Respiratory Rate [Bilateral Bases] Blood Pressure 126/65 126/70 124/65 O2 Sat by Pulse 93 94 92 Oximetry 11/18/18 11/18/18 11/18/18 02:39 02:45 03:00 Temperature Pulse Rate 98 H 97 H Pulse Rate [ 100 H Anterior Bilateral] Pulse Rate [ 113 H Bilateral Bases ] Pulse Rate [ From Monitor] Respiratory 20 20 Rate Respiratory 20 Rate [Anterior Bilateral] Respiratory 20 Rate [Bilateral Bases] Blood Pressure 125/66 121/65 O2 Sat by Pulse 95 95 Oximetry 11/18/18 11/18/18 11/18/18 03:15 03:30 03:45 Temperature Pulse Rate 95 H 95 H 92 H Pulse Rate [ Anterior Bilateral] Pulse Rate [ Bilateral Bases ] Pulse Rate [ From Monitor] Respiratory 20 20 19 Rate Respiratory Rate [Anterior Bilateral] Respiratory Rate [Bilateral Bases] Blood Pressure 122/67 122/64 120/64 O2 Sat by Pulse 95 95 92 Oximetry 11/18/18 11/18/18 11/18/18 03:53 04:00 04:15 Temperature 100.3 F H Pulse Rate 94 H 125 H 96 H Pulse Rate [ Anterior Bilateral] Pulse Rate [ Bilateral Bases ] Pulse Rate [ 120 H From Monitor] Respiratory 20 20 Rate Respiratory Rate [Anterior Bilateral] Respiratory Rate [Bilateral Bases] Blood Pressure 120/64 123/75 123/69 O2 Sat by Pulse 91 91 92 Oximetry 11/18/18 11/18/18 11/18/18 04:30 04:45 05:00 Temperature Pulse Rate 96 H 98 H 96 H Pulse Rate [ Anterior Bilateral] Pulse Rate [ Bilateral Bases ] Pulse Rate [ From Monitor] Respiratory 20 20 20 Rate Respiratory Rate [Anterior Bilateral] Respiratory Rate [Bilateral Bases] Blood Pressure 124/65 121/62 117/62 O2 Sat by Pulse 92 92 92 Oximetry 11/18/18 11/18/18 11/18/18 05:15 05:30 05:45 Temperature Pulse Rate 98 H 97 H 94 H Pulse Rate [ Anterior Bilateral] Pulse Rate [ Bilateral Bases ] Pulse Rate [ From Monitor] Respiratory 20 20 20 Rate Respiratory Rate [Anterior Bilateral] Respiratory Rate [Bilateral Bases] Blood Pressure 117/64 118/63 126/64 O2 Sat by Pulse 92 92 92 Oximetry 11/18/18 11/18/18 11/18/18 06:00 06:15 06:30 Temperature Pulse Rate 95 H 95 H 91 H Pulse Rate [ Anterior Bilateral] Pulse Rate [ Bilateral Bases ] Pulse Rate [ From Monitor] Respiratory 20 20 20 Rate Respiratory Rate [Anterior Bilateral] Respiratory Rate [Bilateral Bases] Blood Pressure 121/64 120/62 119/63 O2 Sat by Pulse 92 93 93 Oximetry 11/18/18 11/18/18 11/18/18 06:45 07:00 07:15 Temperature Pulse Rate 91 H 90 92 H Pulse Rate [ Anterior Bilateral] Pulse Rate [ Bilateral Bases ] Pulse Rate [ From Monitor] Respiratory 20 20 20 Rate Respiratory Rate [Anterior Bilateral] Respiratory Rate [Bilateral Bases] Blood Pressure 126/62 126/63 132/66 O2 Sat by Pulse 92 92 92 Oximetry 11/18/18 11/18/18 11/18/18 07:30 07:37 07:45 Temperature Pulse Rate 128 H 127 H Pulse Rate [ 158 H Anterior Bilateral] Pulse Rate [ 159 H Bilateral Bases ] Pulse Rate [ From Monitor] Respiratory 23 20 Rate Respiratory 22 Rate [Anterior Bilateral] Respiratory 20 Rate [Bilateral Bases] Blood Pressure 125/74 132/78 O2 Sat by Pulse 91 97 Oximetry 11/18/18 11/18/18 11/18/18 07:56 08:00 08:05 Temperature 100.6 F H Pulse Rate 92 H 93 H Pulse Rate [ Anterior Bilateral] Pulse Rate [ Bilateral Bases ] Pulse Rate [ 92 H From Monitor] Respiratory 20 20 Rate Respiratory Rate [Anterior Bilateral] Respiratory Rate [Bilateral Bases] Blood Pressure 132/66 132/70 O2 Sat by Pulse 92 92 92 Oximetry 11/18/18 11/18/18 11/18/18 08:15 08:30 08:45 Temperature Pulse Rate 94 H 115 H 96 H Pulse Rate [ Anterior Bilateral] Pulse Rate [ Bilateral Bases ] Pulse Rate [ From Monitor] Respiratory 19 18 17 Rate Respiratory Rate [Anterior Bilateral] Respiratory Rate [Bilateral Bases] Blood Pressure 130/69 151/82 134/75 O2 Sat by Pulse 93 89 92 Oximetry 11/18/18 11/18/18 11/18/18 09:00 09:15 09:30 Temperature Pulse Rate 90 125 H Pulse Rate [ Anterior Bilateral] Pulse Rate [ Bilateral Bases ] Pulse Rate [ From Monitor] Respiratory 20 21 Rate Respiratory Rate [Anterior Bilateral] Respiratory Rate [Bilateral Bases] Blood Pressure 139/76 126/84 146/89 O2 Sat by Pulse 92 93 90 Oximetry 11/18/18 11/18/18 11/18/18 09:45 10:00 10:15 Temperature Pulse Rate 129 H 128 H 128 H Pulse Rate [ Anterior Bilateral] Pulse Rate [ Bilateral Bases ] Pulse Rate [ From Monitor] Respiratory 19 21 16 Rate Respiratory Rate [Anterior Bilateral] Respiratory Rate [Bilateral Bases] Blood Pressure 153/96 150/102 168/93 O2 Sat by Pulse 91 91 92 Oximetry 11/18/18 10:30 Temperature Pulse Rate 125 H Pulse Rate [ Anterior Bilateral] Pulse Rate [ Bilateral Bases ] Pulse Rate [ From Monitor] Respiratory 10 L Rate Respiratory Rate [Anterior Bilateral] Respiratory Rate [Bilateral Bases] Blood Pressure 146/93 O2 Sat by Pulse 92 Oximetry CBC and BMP: 11/22/18 04:18 11/22/18 04:18 ABG, PT/INR, D-dimer: ABG POC ABG pH 7.400 (7.35-7.45) 11/18/18 04:00 ABG pH 7.247 pH Units (7.350-7.450) L 11/16/18 05:10 POC ABG pCO2 54.2 (35-45) H 11/18/18 04:00 ABG pCO2 64.0 mm Hg 11/16/18 05:10 POC ABG pO2 62 (80-105) L 11/18/18 04:00 ABG pO2 65.7 mm Hg (80.0-90.0) L 11/16/18 05:10 POC ABG HCO3 33.6 (22-26 mml/L) 11/18/18 04:00 POC ABG Total CO2 35 (23-27mmol/L) 11/18/18 04:00 POC ABG O2 Sat 91 11/18/18 04:00 ABG O2 Saturation 89.9 % (95.0-99.0) L 11/16/18 05:10 PT/INR, D-dimer PT 14.1 Sec. (12.2-14.9) 11/14/18 19:39 INR 1.12 (0.87-1.13) 11/14/18 19:39 Abnormal lab findings: Abnormal Labs 11/14/18 11/14/18 11/14/18 18:59 19:39 19:39 WBC RBC 5.30 H MCV MCH 23 L MCHC 29 L RDW 20.5 H Plt Count 132 L Lymph % (Auto) 7.2 L Lymph # 0.6 L Seg Neutrophils % 87.1 H Seg Neuts % (Manual) Lymphocytes % (Manual) Seg Neutrophils # Man Lymphocytes # (Manual) POC ABG pH ABG pH POC ABG pCO2 POC ABG pO2 ABG pO2 ABG HCO3 ABG O2 Saturation ABG Base Excess ABG Hemoglobin ABG Carboxyhemoglobin Oxyhemoglobin Sodium 147 H Potassium Chloride Carbon Dioxide 35 H BUN Creatinine 0.4 L Glucose 121 H POC Glucose 129 H Calcium ALT 6 L Total Protein 6.2 L Albumin 3.4 L 11/14/18 11/15/18 11/15/18 20:45 04:20 04:20 WBC RBC 5.36 H MCV 78 L MCH 22 L MCHC 28 L RDW 20.5 H Plt Count 124 L Lymph % (Auto) Lymph # Seg Neutrophils % Seg Neuts % (Manual) 92.0 H Lymphocytes % (Manual) 6.0 L Seg Neutrophils # Man Lymphocytes # (Manual) 0.4 L POC ABG pH ABG pH 7.346 L POC ABG pCO2 POC ABG pO2 ABG pO2 ABG HCO3 32.4 H ABG O2 Saturation ABG Base Excess 5.3 H ABG Hemoglobin 11.0 L ABG Carboxyhemoglobin 6.4 H Oxyhemoglobin 90.0 L Sodium 146 H Potassium Chloride 107.6 H Carbon Dioxide BUN Creatinine 0.4 L Glucose 132 H POC Glucose Calcium 8.1 L ALT Total Protein Albumin 0911/15/18 11/15/18 06:18 12:36 18:06 WBC RBC MCV MCH MCHC RDW Plt Count Lymph % (Auto) Lymph # Seg Neutrophils % Seg Neuts % (Manual) Lymphocytes % (Manual) Seg Neutrophils # Man Lymphocytes # (Manual) POC ABG pH 7.291 L ABG pH POC ABG pCO2 65.4 H POC ABG pO2 65 L ABG pO2 ABG HCO3 ABG O2 Saturation ABG Base Excess ABG Hemoglobin ABG Carboxyhemoglobin Oxyhemoglobin Sodium Potassium Chloride Carbon Dioxide BUN Creatinine Glucose POC Glucose 149 H 171 H Calcium ALT Total Protein Albumin 11/15/18 11/16/18 11/16/18 23:42 00:11 00:11 WBC 11.2 H RBC MCV 77 L MCH 22 L MCHC 28 L RDW 21.3 H Plt Count 136 L Lymph % (Auto) Lymph # Seg Neutrophils % Seg Neuts % (Manual) 89.0 H Lymphocytes % (Manual) 6.0 L Seg Neutrophils # Man 10.0 H Lymphocytes # (Manual) 0.7 L POC ABG pH ABG pH POC ABG pCO2 POC ABG pO2 ABG pO2 ABG HCO3 ABG O2 Saturation ABG Base Excess ABG Hemoglobin ABG Carboxyhemoglobin Oxyhemoglobin Sodium Potassium 5.4 H D Chloride 109.5 H Carbon Dioxide BUN 18 H Creatinine 0.5 L Glucose 118 H POC Glucose 134 H Calcium ALT Total Protein Albumin 11/16/18 11/16/18 11/16/18 05:10 06:55 12:22 WBC RBC MCV MCH MCHC RDW Plt Count Lymph % (Auto) Lymph # Seg Neutrophils % Seg Neuts % (Manual) Lymphocytes % (Manual) Seg Neutrophils # Man Lymphocytes # (Manual) POC ABG pH ABG pH 7.247 L POC ABG pCO2 POC ABG pO2 ABG pO2 65.7 L ABG HCO3 27.3 H ABG O2 Saturation 89.9 L ABG Base Excess ABG Hemoglobin 10.5 L ABG Carboxyhemoglobin Oxyhemoglobin 87.9 L Sodium Potassium Chloride Carbon Dioxide BUN Creatinine Glucose POC Glucose 116 H 106 H Calcium ALT Total Protein Albumin 11/16/18 11/17/18 11/17/18 18:04 04:56 09:26 WBC 15.1 H RBC MCV 77 L MCH 22 L MCHC 28 L RDW 20.4 H Plt Count 134 L Lymph % (Auto) Lymph # Seg Neutrophils % Seg Neuts % (Manual) Lymphocytes % (Manual) Seg Neutrophils # Man Lymphocytes # (Manual) POC ABG pH 7.335 L ABG pH POC ABG pCO2 58.2 H POC ABG pO2 74 L ABG pO2 ABG HCO3 ABG O2 Saturation ABG Base Excess ABG Hemoglobin ABG Carboxyhemoglobin Oxyhemoglobin Sodium Potassium Chloride Carbon Dioxide BUN Creatinine Glucose POC Glucose 117 H Calcium ALT Total Protein Albumin 11/17/18 11/17/18 11/18/18 09:26 23:49 04:00 WBC RBC MCV MCH MCHC RDW Plt Count Lymph % (Auto) Lymph # Seg Neutrophils % Seg Neuts % (Manual) Lymphocytes % (Manual) Seg Neutrophils # Man Lymphocytes # (Manual) POC ABG pH ABG pH POC ABG pCO2 54.2 H POC ABG pO2 62 L ABG pO2 ABG HCO3 ABG O2 Saturation ABG Base Excess ABG Hemoglobin ABG Carboxyhemoglobin Oxyhemoglobin Sodium 149 H Potassium Chloride 109.0 H Carbon Dioxide BUN 22 H Creatinine 0.4 L Glucose POC Glucose 129 H Calcium ALT Total Protein Albumin 11/18/18 11/18/18 11/18/18 06:15 09:35 09:35 WBC RBC MCV 76 L MCH 22 L MCHC 29 L RDW 20.3 H Plt Count 111 L Lymph % (Auto) Lymph # Seg Neutrophils % Seg Neuts % (Manual) Lymphocytes % (Manual) Seg Neutrophils # Man Lymphocytes # (Manual) POC ABG pH ABG pH POC ABG pCO2 POC ABG pO2 ABG pO2 ABG HCO3 ABG O2 Saturation ABG Base Excess ABG Hemoglobin ABG Carboxyhemoglobin Oxyhemoglobin Sodium 149 H Potassium Chloride 109.5 H Carbon Dioxide 31 H BUN 20 H Creatinine 0.4 L Glucose 137 H POC Glucose 144 H Calcium ALT Total Protein Albumin
[2018-11-18] MEDS ORDERED: QUEtiapine 25 MG TAB PO ONE (11:00)
[2018-11-18] MEDS: ENOXAPARIN 40 MG/0.4 ML INJ SUB-Q SCH (11:32)
--- NOTE | 2018-11-18 11:37 | XRay Report ---
ABDOMEN 1 VIEW(S) INDICATION / CLINICAL INFORMATION: Confirmation of OG tube. COMPARISON: 11/15/2018 FINDINGS: TUBES / LINES: The nasogastric tube terminates in the mid stomach and appears grossly unchanged since the previous exam. BOWEL GAS PATTERN: No significant abnormality. FREE AIR / EXTRALUMINAL GAS: None seen. ADDITIONAL FINDINGS: IVC filter at the L1-3-4 level IMPRESSION: No significant abnormality. The nasogastric tube terminates in the mid stomach. Signer Name: Janes Chong Jr, MD Signed: 11/18/2018 11:32 AM Workstation Name: [id number]
--- NOTE | 2018-11-18 11:45 | Consultation ---
History of Present Illness - Reason for Consult Consult date: 11/18/18 SIRS, unclear source Requesting physician: PARESH GAINES - History of Present Illness 58 y/o female with history of tobacco abuse, COPD with chronic respiratory failure on home oxygen known to our service in May 2018 with septic shock and MDR-Pseudomonas/Ecoli pneumonia, admitted on 11/14/2018 due to worsening SOB. Patient is currently intubated on the vent unable to provide a history. Per EMS, sats were found in the 60's. During May 2018 admission she was treated with levaquin for 10 days as the Pseudomonas was resistant to cefepime, zosyn and sensitive to quinolones. In the ED, temp 97.6, HR 83, R 15, BP 122/54, O2 100%. WBC 8.5. Plat 132. Creat 0.4. UA negative. Blood culture 11/14/2018 no growth today. Tracheal aspirated on 11/14/2018 and 11/17/2018 pending. CXR mild left basilar pleuroparietal disease, mild diffuse interstitial lung disease. ID consulted due to recurrent fever. Review of Systems: unable to obtain Past History Past Medical History: CAD, COPD, GERD, hypertension, other (Anxiety) Past Surgical History: appendectomy, Other (back surgery, cardiac stent placement ) Social history: other (could not be obtained because patient is intubated and sedated) Family history: other (could not be obtained because patient is intubated and sedated) Medications and Allergies Allergies Allergy/AdvReac Type Severity Reaction Status Date / Time hydromorphone [From Dilaudid] Allergy Unknown Verified 09/28/18 21:25 phenobarbital Allergy Unknown Verified 09/28/18 21:25 Home Medications Medication Instructions Recorded Confirmed Last Taken Type ALPRAZolam [Xanax TAB] 0.25 mg PO Q8H PRN #15 tablet 06/19/18 11/14/18 Unknown Rx Baclofen [Lioresal] 10 mg PO BID #60 tab 06/19/18 11/14/18 Unknown Rx busPIRone [Buspar] 5 mg PO BID #60 tab 06/19/18 11/14/18 Unknown Rx Pantoprazole [Protonix TAB] 40 mg PO QDAY #30 tab 08/19/18 11/14/18 Unknown Rx Amlodipine Besylate [Norvasc] 5 mg PO DAILY 09/16/18 11/14/18 Unknown History HYDROcodone/APAP 5-325 [[place] 1 each PO BID PRN 09/16/18 11/14/18 Unknown History 5-325 mg TAB] Metoprolol Xl [Metoprolol 100 mg PO QDAY 09/16/18 11/14/18 Unknown History SUCCINATE ER TAB] Nitroglycerin [Nitrostat] 0.4 mg SL Q5M PRN 09/16/18 11/14/18 Unknown History Venlafaxine HCl [Venlafaxine] 100 mg PO TID 09/16/18 11/14/18 Unknown History Albuterol Sulfate [Proair 90 mcg IH Q4H PRN #1 pump 09/21/18 11/14/18 Unknown Rx Respiclick] Active Meds: Active Medications Acetaminophen (Tylenol) 650 mg PO Q4H PRN PRN Reason: Pain MILD(1-3)/Fever >100.5/PRAJAPATI Last Admin: 11/18/18 07:54 Dose: 650 mg Documented by: Albuterol/Ipratropium (Duoneb *Not For Prn Use*) 1 ampul IH Q6HRT [facility] Last Admin: 11/18/18 07:35 Dose: 1 ampul Documented by: Lipase/Protease/Amylase (Chicho Pereira 10,500 Unit) 1 each FEEDTUBE PRN PRN PRN Reason: For Clogged Feeding Tube Last Admin: 11/18/18 08:15 Dose: 1 each Documented by: Baclofen (Lioresal) 10 mg PO BID [facility] Last Admin: 11/18/18 10:25 Dose: 10 mg Documented by: Buspirone HCl (Buspar) 5 mg PO BID [facility] Last Admin: 11/18/18 10:25 Dose: 5 mg Documented by: Famotidine (Pepcid) 20 mg PO BID [facility] Last Admin: 11/18/18 10:26 Dose: 20 mg Documented by: Fentanyl (Sublimaze) 50 mcg IV Q10MIN PRN PRN Reason: ANALGESIA Hydrophilic Ointment (Vaseline Lip Therapy) 1 applic TP Q2HR PRN PRN Reason: Dry Lips Fentanyl Citrate (Fentanyl Drip Premix) 2,000 mcg in 100 mls @ 3.629 mls/hr IV [facility]; Protocol Last Admin: 11/18/18 07:55 Dose: 4 mcg/kg/hr, 14.515 mls/hr Documented by: Piperacillin Sod/Tazobactam Sod (Zosyn/Ns 4.5gm/100ml) 4.5 gm in 100 mls @ 200 mls/hr IV Q6HR [facility] Last Admin: 11/18/18 11:41 Dose: 200 mls/hr Documented by: Vancomycin HCl 1,500 mg/ (Sodium Chloride) 530 mls @ 333.333 mls/hr IV Q12H [facility] Last Admin: 11/18/18 10:25 Dose: 333.333 mls/hr Documented by: Methylprednisolone Sodium Succinate (Solu-Medrol) 60 mg IV Q8HR [facility] Last Admin: 11/18/18 06:02 Dose: 60 mg Documented by: Midazolam HCl (Versed) 2 mg IV Q10MIN PRN PRN Reason: Sedation Last Admin: 11/18/18 07:41 Dose: 2 mg Documented by: Multi-Ingred Cream/Lotion/Oil/Oint (Artificial Tears Ophth Oint) 1 applic OU Q4HR PRN PRN Reason: Dry Eye(s) Nicotine (Habitrol) 14 mg TD QDAY [facility] Last Admin: 11/18/18 10:26 Dose: 14 mg Documented by: Ondansetron HCl (Zofran) 4 mg IV Q8H PRN PRN Reason: Nausea And Vomiting Quetiapine Fumarate (Seroquel) 50 mg PO QHS [facility] Simple Syrup (Simple Syrup) 15 ml FEEDTUBE PRN PRN PRN Reason: Hypoglycemia Simple Syrup (Simple Syrup) 30 ml FEEDTUBE PRN PRN PRN Reason: Hypoglycemia Sodium Bicarbonate (Sodium Bicarbonate) 325 mg FEEDTUBE PRN PRN PRN Reason: For Clogged Feeding Tube Last Admin: 11/18/18 08:15 Dose: 325 mg Documented by: Sodium Chloride (Sodium Chloride Flush Syringe 10 Ml) 10 ml IV BID [facility] Last Admin: 11/18/18 10:26 Dose: 10 ml Documented by: Sodium Chloride (Sodium Chloride Flush Syringe 10 Ml) 10 ml IV PRN PRN PRN Reason: LINE FLUSH Venlafaxine HCl (Effexor) 100 mg PO TID [facility] Last Admin: 11/18/18 07:54 Dose: 100 mg Documented by: Physical Examination - Physical Exam Narrative exam: General appearance: Alert in NAD Eyes: anicteric sclerae, moist conjunctivae; no lid-lag; PERRLA HENT: Atraumatic; oropharynx +ETT +OGT Lungs: emma rhonchi CV: RRR no murmur Abdomen: Soft, non-tender; no masses or hepatosplenomegaly Extremities: no edema, no cyanosis Skin: multiple emma arms ecchymoses Psych: agitated Neuro: somnolent but agitated - Constitutional Vitals: Vital Signs Temp Pulse Resp BP Pulse Ox 100.6 F H 127 H 9 L 150/118 92 11/18/18 08:00 11/18/18 11:40 11/18/18 11:15 11/18/18 11:40 11/18/18 11:40 Temperature -Last 24 Hours Temperature 100.6 F Temperature 100.6 F Temperature 100.3 F Temperature 99.9 F Temperature 100.8 F Temperature 100.8 F Temperature 99.1 F Results - Labs CBC & Chem 7: 11/18/18 09:35 11/18/18 09:35 Labs: Abnormal lab results 11/17/18 11/18/18 11/18/18 Range/Units 23:49 04:00 06:15 MCV (79-97) fl MCH (28-32) pg MCHC (30-34) % RDW (13.2-15.2) % Plt Count (140-440) K/mm3 POC ABG pCO2 54.2 H (35-45) POC ABG pO2 62 L (80-105) Sodium (137-145) mmol/L Chloride (98-107) mmol/L Carbon Dioxide (22-30) mmol/L BUN (7-17) mg/dL Creatinine (0.7-1.2) mg/dL Glucose (65-100) mg/dL POC Glucose 129 H 144 H (70-105) 11/18/18 11/18/18 Range/Units 09:35 09:35 MCV 76 L (79-97) fl MCH 22 L (28-32) pg MCHC 29 L (30-34) % RDW 20.3 H (13.2-15.2) % Plt Count 111 L (140-440) K/mm3 POC ABG pCO2 (35-45) POC ABG pO2 (80-105) Sodium 149 H (137-145) mmol/L Chloride 109.5 H (98-107) mmol/L Carbon Dioxide 31 H (22-30) mmol/L BUN 20 H (7-17) mg/dL Creatinine 0.4 L (0.7-1.2) mg/dL Glucose 137 H (65-100) mg/dL POC Glucose (70-105) Assessment and Plan Cultures: Blood culture 11/14/2018 no growth today. Tracheal aspirated 11/14/2018 and 11/17/2018 pending Assessment: 58 y/o female with history of tobacco abuse, COPD with chronic respiratory failure on home oxygen known to our service in May 2018 with septic shock and MDR-Pseudomonas/Ecoli pneumonia, admitted on 11/14/2018 due to worsening SOB: 1) SIRS: not present on admission with recurrent fevers starting on 11/16/2018, leukocytosis; source is unclear ?pneumonia with effusion due to MDR Pseudomonas v/s aspiration; CXR with mild left basilar pleuroparietal disease, mild diffuse interstitial lung disease. During May 2018 admission she was treated with levaquin for 10 days as the Pseudomonas was resistant to cefepime, zosyn and sensitive to quinolones. Blood culture 11/14/2018 no growth today. Will stop zosyn and start meropenem. 2) Chronic respiratory failure: intubated. Recommendations: contact isolation stop zosyn - previous Pseudomonas was resistant to cefepime, zosyn and sensitive to quinolones start meropenem IV 1 gm iV q [address] chest to eval left basilar pleuroparietal disease ? pneumonia? effusion ? loculated effusion Thanks for consultation Will follow. Mirtha Hairston MD Infectious Diseases Property Underwriter [facility] M [phone] O [phone]
[2018-11-18] MEDS: MEROPENEM/NS 1 GRAM/100 ML 1 GRAM/100 ML BAG IV SCH ×2 (16:52→21:22)
--- NOTE | 2018-11-18 16:55 | Progress Note ---
Assessment and Plan /Acute on chronic combined respiratory failure requiring intubation: Respiratory failure appears to be secondary to acute COPD exacerbationn.; She was currently intubated sedated pulmonology following, we'll wean off as tolerated. cont Empiric antibiotics. Nebulizes when indicated. /End-stage COPD; with chronic hypoxia treat with iv steriods continue taper, abx, nebs around the clock / SIRS, cont empiric abx for now, ID consulted / HTN (hypertension) Patient currently has optimal control blood pressure. No changes in management. / Nicotine dependence we'll introduce nicotine patch when necessary. / Thrombocytopenia Remains 136 stable no active bleeding. Etiology at this time could be SIRS /Hypernatremia, cont to monitor BMP, iv fluid DVt Px, lovenox The high probability of a clinically significant, sudden or life threatening deterioration of the [multiple] system(s) required my full and direct attention, intervention and personal management. The aggregate critical care time was [35] minutes. This time is in addition to time spent performing reported procedures but includes the following: [x] Data Review and interpretation [x] Patient assessment and monitoring of vital signs [x] Documentation [x] Medication orders and management Brief History Pt is a 58 y/o CF with hx of COPD who presented to the ED via EMS on account of worsening sob. Apparently, the patient called 911 for shortness of breath. Per, EMS, he was noted to be saturating in the 60's in the field. She was given albuterol, steroids, and magnesium in the field. On arrival to the ED, the patie nt was altered, She was emergently intubated and placed on MV. Hospitalist Physical General appearance: Present: mild distress, disheveled, other (intubated, sedated on fentanyl.) Eyes: Present: PERRL ENT: other (patient is intubated), OGT in place, head flexed forward - Neck Neck: Present: supple - Respiratory Respiratory effort: normal Respiratory: bilateral: CTA, diminished - Cardiovascular Rhythm: regular Heart Sounds: Present: S1 & S2 - Extremities Extremities: No edema Peripheral Pulses: within normal limits - Abdominal General gastrointestinal: Present: soft, non-tender, normal bowel sounds Female genitourinary: Present: deferred - Rectal Rectal Exam: deferred - Integumentary Integumentary: Present: clear, warm, dry - Psychiatric Psychiatric: other (could not be obtained because patient is intubated and sedated) - Neurologic Neurologic: other (could not be obtained because patient is intubated and sedated) Subjective Date of service: 11/18/18 Interval history: Patient seen and examined. Medical records and medication list reviewed. No acute event overnight noted by the RN. Patient remained intubated and sedated, on 4 point restraint Objective - Constitutional Vitals: Vital Signs - 12hr 11/18/18 11/18/18 11/18/18 05:00 05:15 05:30 Temperature Pulse Rate 96 H 98 H 97 H Pulse Rate [ Anterior Bilateral] Pulse Rate [ Bilateral Bases ] Pulse Rate [ From Monitor] Respiratory 20 20 20 Rate Respiratory Rate [Anterior Bilateral] Respiratory Rate [Bilateral Bases] Blood Pressure 117/62 117/64 118/63 O2 Sat by Pulse 92 92 92 Oximetry 11/18/18 11/18/18 11/18/18 05:45 06:00 06:15 Temperature Pulse Rate 94 H 95 H 95 H Pulse Rate [ Anterior Bilateral] Pulse Rate [ Bilateral Bases ] Pulse Rate [ From Monitor] Respiratory 20 20 20 Rate Respiratory Rate [Anterior Bilateral] Respiratory Rate [Bilateral Bases] Blood Pressure 126/64 121/64 120/62 O2 Sat by Pulse 92 92 93 Oximetry 11/18/18 11/18/18 11/18/18 06:30 06:45 07:00 Temperature Pulse Rate 91 H 91 H 90 Pulse Rate [ Anterior Bilateral] Pulse Rate [ Bilateral Bases ] Pulse Rate [ From Monitor] Respiratory 20 20 20 Rate Respiratory Rate [Anterior Bilateral] Respiratory Rate [Bilateral Bases] Blood Pressure 119/63 126/62 126/63 O2 Sat by Pulse 93 92 92 Oximetry 11/18/18 11/18/18 11/18/18 07:15 07:30 07:37 Temperature Pulse Rate 92 H 128 H Pulse Rate [ 158 H Anterior Bilateral] Pulse Rate [ 159 H Bilateral Bases ] Pulse Rate [ From Monitor] Respiratory 20 23 Rate Respiratory 22 Rate [Anterior Bilateral] Respiratory 20 Rate [Bilateral Bases] Blood Pressure 132/66 125/74 O2 Sat by Pulse 92 91 Oximetry 11/18/18 11/18/18 11/18/18 07:45 07:56 08:00 Temperature 100.6 F H Pulse Rate 127 H 92 H 93 H Pulse Rate [ Anterior Bilateral] Pulse Rate [ Bilateral Bases ] Pulse Rate [ From Monitor] Respiratory 20 20 Rate Respiratory Rate [Anterior Bilateral] Respiratory Rate [Bilateral Bases] Blood Pressure 132/78 132/66 132/70 O2 Sat by Pulse 97 92 92 Oximetry 11/18/18 11/18/18 11/18/18 08:05 08:15 08:30 Temperature Pulse Rate 94 H 115 H Pulse Rate [ Anterior Bilateral] Pulse Rate [ Bilateral Bases ] Pulse Rate [ 92 H From Monitor] Respiratory 20 19 18 Rate Respiratory Rate [Anterior Bilateral] Respiratory Rate [Bilateral Bases] Blood Pressure 130/69 151/82 O2 Sat by Pulse 92 93 89 Oximetry 11/18/18 11/18/18 11/18/18 08:45 09:00 09:15 Temperature Pulse Rate 96 H 90 125 H Pulse Rate [ Anterior Bilateral] Pulse Rate [ Bilateral Bases ] Pulse Rate [ From Monitor] Respiratory 17 20 21 Rate Respiratory Rate [Anterior Bilateral] Respiratory Rate [Bilateral Bases] Blood Pressure 134/75 139/76 126/84 O2 Sat by Pulse 92 92 93 Oximetry 11/18/18 11/18/18 11/18/18 09:30 09:45 10:00 Temperature Pulse Rate 129 H 128 H Pulse Rate [ Anterior Bilateral] Pulse Rate [ Bilateral Bases ] Pulse Rate [ From Monitor] Respiratory 19 21 Rate Respiratory Rate [Anterior Bilateral] Respiratory Rate [Bilateral Bases] Blood Pressure 146/89 153/96 150/102 O2 Sat by Pulse 90 91 91 Oximetry 11/18/18 11/18/18 11/18/18 10:15 10:30 10:45 Temperature Pulse Rate 128 H 125 H 90 Pulse Rate [ Anterior Bilateral] Pulse Rate [ Bilateral Bases ] Pulse Rate [ From Monitor] Respiratory 16 10 L 20 Rate Respiratory Rate [Anterior Bilateral] Respiratory Rate [Bilateral Bases] Blood Pressure 168/93 146/93 151/76 O2 Sat by Pulse 92 92 93 Oximetry 11/18/18 11/18/18 11/18/18 11:00 11:15 11:30 Temperature Pulse Rate 89 127 H 84 Pulse Rate [ Anterior Bilateral] Pulse Rate [ Bilateral Bases ] Pulse Rate [ From Monitor] Respiratory 20 9 L 20 Rate Respiratory Rate [Anterior Bilateral] Respiratory Rate [Bilateral Bases] Blood Pressure 151/75 150/118 148/69 O2 Sat by Pulse 93 92 92 Oximetry 11/18/18 11/18/18 11/18/18 11:40 11:45 12:00 Temperature 100.2 F H Pulse Rate 127 H 124 H 119 H Pulse Rate [ Anterior Bilateral] Pulse Rate [ Bilateral Bases ] Pulse Rate [ 117 H From Monitor] Respiratory 12 22 Rate Respiratory Rate [Anterior Bilateral] Respiratory Rate [Bilateral Bases] Blood Pressure 150/118 151/88 142/89 O2 Sat by Pulse 92 91 97 Oximetry 11/18/18 11/18/18 11/18/18 12:16 12:30 12:46 Temperature Pulse Rate 94 H 86 126 H Pulse Rate [ Anterior Bilateral] Pulse Rate [ Bilateral Bases ] Pulse Rate [ From Monitor] Respiratory 20 20 20 Rate Respiratory Rate [Anterior Bilateral] Respiratory Rate [Bilateral Bases] Blood Pressure 122/62 115/62 124/77 O2 Sat by Pulse 93 92 92 Oximetry 11/18/18 11/18/18 11/18/18 13:00 13:15 13:20 Temperature Pulse Rate 87 85 Pulse Rate [ 82 Anterior Bilateral] Pulse Rate [ 82 Bilateral Bases ] Pulse Rate [ From Monitor] Respiratory 20 19 Rate Respiratory 25 H Rate [Anterior Bilateral] Respiratory 20 Rate [Bilateral Bases] Blood Pressure 122/59 114/62 O2 Sat by Pulse 94 93 Oximetry 11/18/18 11/18/18 11/18/18 13:30 13:45 14:00 Temperature Pulse Rate 81 82 79 Pulse Rate [ Anterior Bilateral] Pulse Rate [ Bilateral Bases ] Pulse Rate [ From Monitor] Respiratory 20 20 20 Rate Respiratory Rate [Anterior Bilateral] Respiratory Rate [Bilateral Bases] Blood Pressure 104/58 109/59 112/57 O2 Sat by Pulse 87 87 84 Oximetry 11/18/18 11/18/18 11/18/18 14:15 14:30 14:45 Temperature Pulse Rate 77 75 75 Pulse Rate [ Anterior Bilateral] Pulse Rate [ Bilateral Bases ] Pulse Rate [ From Monitor] Respiratory 20 20 18 Rate Respiratory Rate [Anterior Bilateral] Respiratory Rate [Bilateral Bases] Blood Pressure 128/68 130/68 139/70 O2 Sat by Pulse 95 96 96 Oximetry 11/18/18 11/18/18 11/18/18 15:00 15:15 15:24 Temperature Pulse Rate 76 83 79 Pulse Rate [ Anterior Bilateral] Pulse Rate [ Bilateral Bases ] Pulse Rate [ From Monitor] Respiratory 18 19 Rate Respiratory Rate [Anterior Bilateral] Respiratory Rate [Bilateral Bases] Blood Pressure 139/69 131/68 139/69 O2 Sat by Pulse 97 94 95 Oximetry 11/18/18 11/18/18 11/18/18 15:32 15:40 16:17 Temperature 100.7 F H Pulse Rate 85 Pulse Rate [ Anterior Bilateral] Pulse Rate [ Bilateral Bases ] Pulse Rate [ 83 From Monitor] Respiratory 20 Rate Respiratory Rate [Anterior Bilateral] Respiratory Rate [Bilateral Bases] Blood Pressure O2 Sat by Pulse 93 Oximetry - Labs CBC & Chem 7: 11/18/18 09:35 11/19/18 09:25 Labs: Abnormal lab results 11/17/18 11/18/18 11/18/18 Range/Units 23:49 04:00 06:15 MCV (79-97) fl MCH (28-32) pg MCHC (30-34) % RDW (13.2-15.2) % Plt Count (140-440) K/mm3 POC ABG pCO2 54.2 H (35-45) POC ABG pO2 62 L (80-105) Sodium (137-145) mmol/L Chloride (98-107) mmol/L Carbon Dioxide (22-30) mmol/L BUN (7-17) mg/dL Creatinine (0.7-1.2) mg/dL Glucose (65-100) mg/dL POC Glucose 129 H 144 H (70-105) 11/18/18 11/18/18 11/18/18 Range/Units 09:35 09:35 12:23 MCV 76 L (79-97) fl MCH 22 L (28-32) pg MCHC 29 L (30-34) % RDW 20.3 H (13.2-15.2) % Plt Count 111 L (140-440) K/mm3 POC ABG pCO2 (35-45) POC ABG pO2 (80-105) Sodium 149 H (137-145) mmol/L Chloride 109.5 H (98-107) mmol/L Carbon Dioxide 31 H (22-30) mmol/L BUN 20 H (7-17) mg/dL Creatinine 0.4 L (0.7-1.2) mg/dL Glucose 137 H (65-100) mg/dL POC Glucose 140 H (70-105)
--- NOTE | 2018-11-18 19:36 | Cat Scan Report ---
CT CHEST WITH CONTRAST INDICATION: eval for pneumonia, LLL effusion abscess CONTRAST: 100 cc Omnipaque 300 IV COMPARISON: Portable chest x-ray today, CTA chest 05/28/[address] scans at this location are performed using CT dose reduction for ALARA by means of automated e xposure control. FINDINGS: Study is marred by motion artifact. Prominent kyphosis is noted with multiple mid thoracic surgical changes causing artifact. Old right r ib deformities presumably are related to surgery. Endotracheal tube is seen in satisfactory position. Nasogastric tube extends into the proximal stomach. No significant axillary or chest wall abnormalities are seen. No mediastinal or hilar masses are seen . Coronary artery calcifications are noted. Visualized portions of the upper abdomen show probable mi ld cholelithiasis without obvious wall thickening. Mild chronic changes are seen diffusely in the lung woo with mild diffuse increased interstitial m arkings seen. Small bilateral pleural effusions are seen more on the left. The small effusion on the right may be chronic as there appear to be marginal calcifications. The left lower lobe shows signifi cant atelectasis and consolidation with air bronchograms. Patchy areas of atelectatic change are seen in both lung bases, mostly in the lower lobes. No pulmonary nodules or masses are seen. No pneumotho rax or pneumomediastinum are noted. IMPRESSION: 1. Small bilateral pleural effusions, probably chronic on the right, with left lower lobe consolidati on and atelectasis suggesting pneumonia. 2. Probable mild cholelithiasis without acute change seen. Signer Name: Alex Shay MD Signed: 11/18/2018 7:31 PM Workstation Name: [id number]
[2018-11-18] MEDS ORDERED: QUEtiapine 25 MG TAB PO SCH (22:00)
[2018-11-19] MEDS: fentaNYL DRIP Premix 2,000 MCG/100 ML BAG IV SCH ×3 (02:46→18:54)
[2018-11-19] MEDS: FREE WATER PO SCH ×5 (02:47→21:13)
--- NOTE | 2018-11-19 03:16 | XRay Report ---
CHEST 1 VIEW 11/19/2018 2:03 AM INDICATION / CLINICAL INFORMATION: follow up respiratory failure. COMPARISON: 11/18/18 FINDINGS: SUPPORT DEVICES: Endotracheal and esophagogastric tubes are unchanged. HEART / MEDIASTINUM: Stable. LUNGS / PLEURA: Left lung base pleural-parenchymal density has increased slightly. No pneumothorax. ADDITIONAL FINDINGS: No significant additional findings. IMPRESSION: 1. Slight increase in left lung base pleural-parenchymal density. Signer Name: Stephen Hdz MD Signed: 11/19/2018 3:11 AM Workstation Name: [id number][id number]
[2018-11-19] MEDS: IPRATROPIUM/ALBUTEROL SULFATE 3 ML AMPUL.NEB IH SCH ×2 (04:07→09:13)
[2018-11-19] MEDS: methylPREDNISolone Sod Succinate 125 MG/2 ML INJ IV SCH ×3 (06:25→21:02)
[2018-11-19] MEDS: MEROPENEM/NS 1 GRAM/100 ML 1 GRAM/100 ML BAG IV SCH ×3 (06:25→21:02)
[2018-11-19] MEDS: VENLAFAXINE 25 MG TAB PO SCH ×3 (07:52→21:12)
[2018-11-19] MEDS: ACETAMINOPHEN 325 MG TAB PO PRN ×2 (07:52→12:00)
[2018-11-19] MEDS: MIDAZOLAM 2 MG/2 ML INJ IV PRN ×3 (07:52→17:55)
[2018-11-19] MEDS: FAMOTIDINE 20 MG TAB PO SCH ×2 (09:30→21:09)
[2018-11-19] MEDS: busPIRone 5 MG TAB PO SCH (09:30)
[2018-11-19] MEDS: NICOTINE 14 MG/24 HR PATCH TD SCH (09:30)
[2018-11-19] MEDS: BACLOFEN 10 MG TAB PO SCH ×2 (09:30→21:10)
[2018-11-19] MEDS: VANCOMYCIN 1,500 MG in SODIUM CHLORIDE 0.9% 500 ML 500 ML IV SCH ×2 (09:31→21:08)
[2018-11-19 10:51] LABS: BUN/Creatinine Ratio 70; Blood Urea Nitrogen 21 mg/dL (7-17); Calcium 8.7 mg/dL (8.4-10.2); Hemolysis Index 3
[2018-11-19] MEDS ORDERED: VANCOMYCIN/NS 1 GM/250 ML 1 GM/250 ML BAG IV SCH (11:00)
--- NOTE | 2018-11-19 11:27 | Progress Note ---
Assessment and Plan Acute and chronic hypoxic-hypercapnic respiratory failure AE-COPD Tobacco use disorder/Nicotine dependence( on going) Hypernatremia History of HTN, hypotensive at presentation Chronic narcotic dependence Chronic back pain Anxiety disorder - discontinue Buspar - begin Seroquel to spare IV sedation (also prior history of agitation and anxiety) - trial of flomax re: urinary retention - pull nunez in 48-72 hours hopefully - add Brovana and pulmicort re: severe COPD - increase TV to 450 ml's - reduce set rate to 12/min - repeat ABG at 6pm - get lactae and CRP levels to aid clinical decision making - VAP bundle addressed - Lung protective strategies - Oxygen restrictive strategies (PaO2 of 60 with O2 sats 88-90% is acceptable) - continue bronchodilators with pulmonary hygiene per RT - Stop benzodiazepine's, reduce the possibility of delirium - Continue with fentanyl, titrate for RASS of 0 to -1 - Maintenance of sleep-wake cycle, avoid delirium - Daily SAT and SBT as tolerated - continue enteral nutritional support at goal rate as tolerated - Accuchecks with glycemic control - While critically ill target blood glucose of 140-180 mg/dL; avoid hypoglycemic - VTE prophylaxis(enoxaparin) - Stress ulcer prophylaxis( Famotidine) - continue systemic Steroids - Empiric Antibiotics ; de-escalate per ID rec's - Monitor hemodynamics closely - Avoid delirium - Nicotine withdrawal precautions, nicotine patch - continue other care per attending / other retirement sales consultant's .... re-evaluate in am & prn CONDITION: CRITICAL PROGNOSIS: GUARDED CODE STATUS: FULL CODE In view of ongoing smoking, recurrent hospital admission, will need to re- address advance directives and goals of care, once the patient is able to be a part of that discussion. Will also address smoking cessation again, once she is able to be a part of that discussion The high probability of a clinically significant, sudden or life-threatening deterioration of the respiratory, cardiovascular, neurology, endocrine system(s) required my full and direct attention, intervention and personal management. The aggregate critical care time was [35] minutes without overlap. Time includes spent on; [x] Data Review and interpretation [x] Patient assessment and monitoring of vital signs [x] Documentation [x] Medication orders and management Subjective Date of service: 11/19/18 Principal diagnosis: Ac and ch hypoxic hypercapnic resp failure; AE-COPD; Tobacco use disorder Interval history: Patient is seen today for: Ac and ch hypoxic hypercapnic resp failure; AE-COPD; Tobacco use disorder/Nicotine dependence; Hypernatremia; HTN (hypotensive at presentation 0; Chronic narcotic dependence ; Chronic back pain; Anxiety disorder Seen and examined at bedside; 24-hour events reviewed; nursing and respiratory care staff consulted; no adverse overnight events reported to me; laying in bed; intermittently agitated despite sedation; No emesis or overt aspiration; afebrile Objective Vital Signs - 12hr 11/18/18 11/18/18 11/19/18 23:30 23:45 00:00 Temperature 99.1 F Pulse Rate 90 85 82 Pulse Rate [ Anterior Bilateral] Pulse Rate [ Bilateral Bases ] Pulse Rate [ 79 From Monitor] Respiratory 20 20 19 Rate Respiratory Rate [Anterior Bilateral] Respiratory Rate [Bilateral Bases] Blood Pressure 130/61 137/68 137/67 O2 Sat by Pulse 85 94 93 Oximetry 11/19/18 11/19/18 11/19/18 00:15 00:28 00:30 Temperature Pulse Rate 83 80 82 Pulse Rate [ Anterior Bilateral] Pulse Rate [ Bilateral Bases ] Pulse Rate [ From Monitor] Respiratory 20 19 Rate Respiratory Rate [Anterior Bilateral] Respiratory Rate [Bilateral Bases] Blood Pressure 139/66 139/66 142/64 O2 Sat by Pulse 94 94 94 Oximetry 11/19/18 11/19/18 11/19/18 00:45 01:00 01:15 Temperature Pulse Rate 82 82 84 Pulse Rate [ Anterior Bilateral] Pulse Rate [ Bilateral Bases ] Pulse Rate [ From Monitor] Respiratory 20 20 20 Rate Respiratory Rate [Anterior Bilateral] Respiratory Rate [Bilateral Bases] Blood Pressure 143/66 135/69 139/68 O2 Sat by Pulse 90 92 94 Oximetry 11/19/18 11/19/18 11/19/18 01:30 01:45 02:00 Temperature Pulse Rate 84 86 85 Pulse Rate [ Anterior Bilateral] Pulse Rate [ Bilateral Bases ] Pulse Rate [ From Monitor] Respiratory 20 20 20 Rate Respiratory Rate [Anterior Bilateral] Respiratory Rate [Bilateral Bases] Blood Pressure 140/71 138/67 139/69 O2 Sat by Pulse 92 94 90 Oximetry 11/19/18 11/19/18 11/19/18 02:15 02:30 02:45 Temperature Pulse Rate 115 H 97 H 91 H Pulse Rate [ Anterior Bilateral] Pulse Rate [ Bilateral Bases ] Pulse Rate [ From Monitor] Respiratory 12 20 20 Rate Respiratory Rate [Anterior Bilateral] Respiratory Rate [Bilateral Bases] Blood Pressure 128/82 151/79 141/72 O2 Sat by Pulse 95 94 95 Oximetry 11/19/18 11/19/18 11/19/18 03:00 03:15 03:30 Temperature Pulse Rate 97 H 90 97 H Pulse Rate [ Anterior Bilateral] Pulse Rate [ Bilateral Bases ] Pulse Rate [ From Monitor] Respiratory 20 20 20 Rate Respiratory Rate [Anterior Bilateral] Respiratory Rate [Bilateral Bases] Blood Pressure 148/76 137/68 129/78 O2 Sat by Pulse 95 94 95 Oximetry 11/19/18 11/19/18 11/19/18 03:44 03:45 04:00 Temperature 100.7 F H Pulse Rate 113 H 107 H 114 H Pulse Rate [ Anterior Bilateral] Pulse Rate [ Bilateral Bases ] Pulse Rate [ 113 H From Monitor] Respiratory 20 20 Rate Respiratory Rate [Anterior Bilateral] Respiratory Rate [Bilateral Bases] Blood Pressure 154/80 154/80 152/81 O2 Sat by Pulse 94 94 94 Oximetry 11/19/18 11/19/18 11/19/18 04:07 04:15 04:30 Temperature Pulse Rate 135 H 109 H Pulse Rate [ 98 H Anterior Bilateral] Pulse Rate [ 98 H Bilateral Bases ] Pulse Rate [ From Monitor] Respiratory 20 19 Rate Respiratory 22 Rate [Anterior Bilateral] Respiratory 20 Rate [Bilateral Bases] Blood Pressure 144/91 130/68 O2 Sat by Pulse 94 97 Oximetry 11/19/18 11/19/18 11/19/18 04:45 05:00 05:15 Temperature Pulse Rate 135 H 113 H 122 H Pulse Rate [ Anterior Bilateral] Pulse Rate [ Bilateral Bases ] Pulse Rate [ From Monitor] Respiratory 11 L 20 15 Rate Respiratory Rate [Anterior Bilateral] Respiratory Rate [Bilateral Bases] Blood Pressure 123/76 144/72 129/71 O2 Sat by Pulse 94 95 93 Oximetry 11/19/18 11/19/18 11/19/18 05:30 05:45 06:00 Temperature Pulse Rate 94 H 123 H 96 H Pulse Rate [ Anterior Bilateral] Pulse Rate [ Bilateral Bases ] Pulse Rate [ From Monitor] Respiratory 20 19 21 Rate Respiratory Rate [Anterior Bilateral] Respiratory Rate [Bilateral Bases] Blood Pressure 110/56 138/70 109/55 O2 Sat by Pulse 91 94 85 Oximetry 11/19/18 11/19/18 11/19/18 06:15 06:30 06:45 Temperature Pulse Rate 110 H 123 H 97 H Pulse Rate [ Anterior Bilateral] Pulse Rate [ Bilateral Bases ] Pulse Rate [ From Monitor] Respiratory 20 21 20 Rate Respiratory Rate [Anterior Bilateral] Respiratory Rate [Bilateral Bases] Blood Pressure 109/56 144/74 117/60 O2 Sat by Pulse 90 95 87 Oximetry 11/19/18 11/19/18 11/19/18 07:00 07:16 07:30 Temperature Pulse Rate 134 H 132 H 137 H Pulse Rate [ Anterior Bilateral] Pulse Rate [ Bilateral Bases ] Pulse Rate [ From Monitor] Respiratory 18 18 21 Rate Respiratory Rate [Anterior Bilateral] Respiratory Rate [Bilateral Bases] Blood Pressure 150/79 119/69 149/91 O2 Sat by Pulse 93 91 95 Oximetry 11/19/18 11/19/18 11/19/18 07:45 08:00 08:15 Temperature 101 F H Pulse Rate 124 H 113 H 96 H Pulse Rate [ Anterior Bilateral] Pulse Rate [ Bilateral Bases ] Pulse Rate [ 113 H From Monitor] Respiratory 19 20 20 Rate Respiratory Rate [Anterior Bilateral] Respiratory Rate [Bilateral Bases] Blood Pressure 172/78 119/67 125/62 O2 Sat by Pulse 96 96 95 Oximetry 11/19/18 11/19/18 11/19/18 08:30 08:45 09:00 Temperature Pulse Rate 91 H 90 93 H Pulse Rate [ Anterior Bilateral] Pulse Rate [ Bilateral Bases ] Pulse Rate [ From Monitor] Respiratory 20 20 20 Rate Respiratory Rate [Anterior Bilateral] Respiratory Rate [Bilateral Bases] Blood Pressure 132/65 130/65 135/72 O2 Sat by Pulse 91 83 L 90 Oximetry 11/19/18 11/19/18 11/19/18 09:09 09:16 09:30 Temperature Pulse Rate 118 H 116 H 123 H Pulse Rate [ Anterior Bilateral] Pulse Rate [ Bilateral Bases ] Pulse Rate [ From Monitor] Respiratory 20 19 Rate Respiratory Rate [Anterior Bilateral] Respiratory Rate [Bilateral Bases] Blood Pressure 135/72 155/109 155/109 O2 Sat by Pulse 92 92 92 Oximetry 11/19/18 11/19/18 11/19/18 09:45 10:00 10:15 Temperature Pulse Rate 112 H 117 H 106 H Pulse Rate [ Anterior Bilateral] Pulse Rate [ Bilateral Bases ] Pulse Rate [ From Monitor] Respiratory 20 20 20 Rate Respiratory Rate [Anterior Bilateral] Respiratory Rate [Bilateral Bases] Blood Pressure 135/63 135/63 163/74 O2 Sat by Pulse 94 94 92 Oximetry 11/19/18 10:30 Temperature Pulse Rate 113 H Pulse Rate [ Anterior Bilateral] Pulse Rate [ Bilateral Bases ] Pulse Rate [ From Monitor] Respiratory 20 Rate Respiratory Rate [Anterior Bilateral] Respiratory Rate [Bilateral Bases] Blood Pressure 163/74 O2 Sat by Pulse 93 Oximetry Constitutional: appears uncomfortable, other (elderly looking obese CF, normocephalic with increased resp effort at rest on MVS) Eyes: non-icteric ENT: oropharynx moist, other (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) Neck: supple, no lymphadenopathy, no JVD, other (large neck circumference) Effort: mildly labored Ascultation: Bilateral: diminished breath sounds, rhonchi Percussion: Bilateral: not dull Cardiovascular: regular rate and rhythm Gastrointestinal: normoactive bowel sounds, soft, non-tender, non-distended Integumentary: normal Extremities: no cyanosis, no edema, pink and warm, pulses normal Neurologic: non-focal exam (grossly), pupils equal and round, motor strength normal and, other (agitated) Psychiatric: other (unable to assess) CBC and BMP: 11/20/18 04:39 11/20/18 04:39 ABG, PT/INR, D-dimer: ABG POC ABG pH 7.345 (7.35-7.45) L 11/19/18 04:12 ABG pH 7.247 pH Units (7.350-7.450) L 11/16/18 05:10 POC ABG pCO2 64.9 (35-45) H 11/19/18 04:12 ABG pCO2 64.0 mm Hg 11/16/18 05:10 POC ABG pO2 69 (80-105) L 11/19/18 04:12 ABG pO2 65.7 mm Hg (80.0-90.0) L 11/16/18 05:10 POC ABG HCO3 35.4 (22-26 mml/L) 11/19/18 04:12 POC ABG Total CO2 37 (23-27mmol/L) 11/19/18 04:12 POC ABG O2 Sat 92 11/19/18 04:12 ABG O2 Saturation 89.9 % (95.0-99.0) L 11/16/18 05:10 PT/INR, D-dimer PT 14.1 Sec. (12.2-14.9) 11/14/18 19:39 INR 1.12 (0.87-1.13) 11/14/18 19:39 Abnormal lab findings: Abnormal Labs 11/14/18 11/14/18 11/14/18 18:59 19:39 19:39 WBC RBC 5.30 H MCV MCH 23 L MCHC 29 L RDW 20.5 H Plt Count 132 L Lymph % (Auto) 7.2 L Lymph # 0.6 L Seg Neutrophils % 87.1 H Seg Neuts % (Manual) Lymphocytes % (Manual) Seg Neutrophils # Man Lymphocytes # (Manual) POC ABG pH ABG pH POC ABG pCO2 POC ABG pO2 ABG pO2 ABG HCO3 ABG O2 Saturation ABG Base Excess ABG Hemoglobin ABG Carboxyhemoglobin Oxyhemoglobin Sodium 147 H Potassium Chloride Carbon Dioxide 35 H BUN Creatinine 0.4 L Glucose 121 H POC Glucose 129 H Calcium ALT 6 L Total Protein 6.2 L Albumin 3.4 L 11/14/18 11/15/18 11/15/18 20:45 04:20 04:20 WBC RBC 5.36 H MCV 78 L MCH 22 L MCHC 28 L RDW 20.5 H Plt Count 124 L Lymph % (Auto) Lymph # Seg Neutrophils % Seg Neuts % (Manual) 92.0 H Lymphocytes % (Manual) 6.0 L Seg Neutrophils # Man Lymphocytes # (Manual) 0.4 L POC ABG pH ABG pH 7.346 L POC ABG pCO2 POC ABG pO2 ABG pO2 ABG HCO3 32.4 H ABG O2 Saturation ABG Base Excess 5.3 H ABG Hemoglobin 11.0 L ABG Carboxyhemoglobin 6.4 H Oxyhemoglobin 90.0 L Sodium 146 H Potassium Chloride 107.6 H Carbon Dioxide BUN Creatinine 0.4 L Glucose 132 H POC Glucose Calcium 8.1 L ALT Total Protein Albumin 11/15/18 11/15/18 11/15/18 06:18 12:36 18:06 WBC RBC MCV MCH MCHC RDW Plt Count Lymph % (Auto) Lymph # Seg Neutrophils % Seg Neuts % (Manual) Lymphocytes % (Manual) Seg Neutrophils # Man Lymphocytes # (Manual) POC ABG pH 7.291 L ABG pH POC ABG pCO2 65.4 H POC ABG pO2 65 L ABG pO2 ABG HCO3 ABG O2 Saturation ABG Base Excess ABG Hemoglobin ABG Carboxyhemoglobin Oxyhemoglobin Sodium Potassium Chloride Carbon Dioxide BUN Creatinine Glucose POC Glucose 149 H 171 H Calcium ALT Total Protein Albumin 11/15/18 11/16/18 11/16/18 23:42 00:11 00:11 WBC 11.2 H RBC MCV 77 L MCH 22 L MCHC 28 L RDW 21.3 H Plt Count 136 L Lymph % (Auto) Lymph # Seg Neutrophils % Seg Neuts % (Manual) 89.0 H Lymphocytes % (Manual) 6.0 L Seg Neutrophils # Man 10.0 H Lymphocytes # (Manual) 0.7 L POC ABG pH ABG pH POC ABG pCO2 POC ABG pO2 ABG pO2 ABG HCO3 ABG O2 Saturation ABG Base Excess ABG Hemoglobin ABG Carboxyhemoglobin Oxyhemoglobin Sodium Potassium 5.4 H D Chloride 109.5 H Carbon Dioxide BUN 18 H Creatinine 0.5 L Glucose 118 H POC Glucose 134 H Calcium ALT Total Protein Albumin 11/16/18 11/16/18 11/16/18 05:10 06:55 12:22 WBC RBC MCV MCH MCHC RDW Plt Count Lymph % (Auto) Lymph # Seg Neutrophils % Seg Neuts % (Manual) Lymphocytes % (Manual) Seg Neutrophils # Man Lymphocytes # (Manual) POC ABG pH ABG pH 7.247 L POC ABG pCO2 POC ABG pO2 ABG pO2 65.7 L ABG HCO3 27.3 H ABG O2 Saturation 89.9 L ABG Base Excess ABG Hemoglobin 10.5 L ABG Carboxyhemoglobin Oxyhemoglobin 87.9 L Sodium Potassium Chloride Carbon Dioxide BUN Creatinine Glucose POC Glucose 116 H 106 H Calcium ALT Total Protein Albumin 11/16/18 11/17/18 11/17/18 18:04 04:56 09:26 WBC 15.1 H RBC MCV 77 L MCH 22 L MCHC 28 L RDW 20.4 H Plt Count 134 L Lymph % (Auto) Lymph # Seg Neutrophils % Seg Neuts % (Manual) Lymphocytes % (Manual) Seg Neutrophils # Man Lymphocytes # (Manual) POC ABG pH 7.335 L ABG pH POC ABG pCO2 58.2 H POC ABG pO2 74 L ABG pO2 ABG HCO3 ABG O2 Saturation ABG Base Excess ABG Hemoglobin ABG Carboxyhemoglobin Oxyhemoglobin Sodium Potassium Chloride Carbon Dioxide BUN Creatinine Glucose POC Glucose 117 H Calcium ALT Total Protein Albumin 11/17/18 11/17/18 11/17/18 09:26 18:03 23:49 WBC RBC MCV MCH MCHC RDW Plt Count Lymph % (Auto) Lymph # Seg Neutrophils % Seg Neuts % (Manual) Lymphocytes % (Manual) Seg Neutrophils # Man Lymphocytes # (Manual) POC ABG pH ABG pH POC ABG pCO2 POC ABG pO2 ABG pO2 ABG HCO3 ABG O2 Saturation ABG Base Excess ABG Hemoglobin ABG Carboxyhemoglobin Oxyhemoglobin Sodium 149 H Potassium Chloride 109.0 H Carbon Dioxide BUN 22 H Creatinine 0.4 L Glucose POC Glucose 128 H 129 H Calcium ALT Total Protein Albumin 11/18/18 11/18/18 11/18/18 04:00 06:15 09:35 WBC RBC MCV 76 L MCH 22 L MCHC 29 L RDW 20.3 H Plt Count 111 L Lymph % (Auto) Lymph # Seg Neutrophils % Seg Neuts % (Manual) Lymphocytes % (Manual) Seg Neutrophils # Man Lymphocytes # (Manual) POC ABG pH ABG pH POC ABG pCO2 54.2 H POC ABG pO2 62 L ABG pO2 ABG HCO3 ABG O2 Saturation ABG Base Excess ABG Hemoglobin ABG Carboxyhemoglobin Oxyhemoglobin Sodium Potassium Chloride Carbon Dioxide BUN Creatinine Glucose POC Glucose 144 H Calcium ALT Total Protein Albumin 11/18/18 11/18/18 11/18/18 09:35 12:23 18:21 WBC RBC MCV MCH MCHC RDW Plt Count Lymph % (Auto) Lymph # Seg Neutrophils % Seg Neuts % (Manual) Lymphocytes % (Manual) Seg Neutrophils # Man Lymphocytes # (Manual) POC ABG pH ABG pH POC ABG pCO2 POC ABG pO2 ABG pO2 ABG HCO3 ABG O2 Saturation ABG Base Excess ABG Hemoglobin ABG Carboxyhemoglobin Oxyhemoglobin Sodium 149 H Potassium Chloride 109.5 H Carbon Dioxide 31 H BUN 20 H Creatinine 0.4 L Glucose 137 H POC Glucose 140 H 160 H Calcium ALT Total Protein Albumin 11/18/18 11/19/18 11/19/18 23:55 04:12 05:41 WBC RBC MCV MCH MCHC RDW Plt Count Lymph % (Auto) Lymph # Seg Neutrophils % Seg Neuts % (Manual) Lymphocytes % (Manual) Seg Neutrophils # Man Lymphocytes # (Manual) POC ABG pH 7.345 L ABG pH POC ABG pCO2 64.9 H POC ABG pO2 69 L ABG pO2 ABG HCO3 ABG O2 Saturation ABG Base Excess ABG Hemoglobin ABG Carboxyhemoglobin Oxyhemoglobin Sodium Potassium Chloride Carbon Dioxide BUN Creatinine Glucose POC Glucose 151 H 145 H Calcium ALT Total Protein Albumin 11/19/18 11/19/18 09:25 11:25 WBC RBC MCV MCH MCHC RDW Plt Count Lymph % (Auto) Lymph # Seg Neutrophils % Seg Neuts % (Manual) Lymphocytes % (Manual) Seg Neutrophils # Man Lymphocytes # (Manual) POC ABG pH ABG pH POC ABG pCO2 POC ABG pO2 ABG pO2 ABG HCO3 ABG O2 Saturation ABG Base Excess ABG Hemoglobin ABG Carboxyhemoglobin Oxyhemoglobin Sodium 150 H Potassium Chloride 109.4 H Carbon Dioxide 32 H BUN 21 H Creatinine 0.3 L Glucose 149 H POC Glucose 160 H Calcium ALT Total Protein Albumin Chest x-ray: image reviewed (+ hardware in T-spine; small volume LLL atelectasis) Allied health notes reviewed: nursing
--- NOTE | 2018-11-19 11:32 | Progress Note ---
Assessment and Plan Cultures: Blood culture 11/14/2018 no growth today. Tracheal aspirated 11/14/2018 Staph aureus Tracheal aspirated 11/17/2018 pending Assessment: 58 y/o female with history of tobacco abuse, COPD with chronic respiratory failure on home oxygen known to our service in May 2018 with septic shock and MDR-Pseudomonas/Ecoli pneumonia, admitted on 11/14/2018 due to worsening SOB: 1) Sepsis: not present on admission with recurrent fevers starting on 11/16/2018, leukocytosis; source is LLL pneumonia. CT chest showed LLL pneumonia with minimal emma effusions, no loculation or abscess. Tracheal asp on 11/14 growing Staph aureus. Recent history of MDR Pseudomonas pneumonia; CXR with mild left basilar pleuroparietal disease, mild diffuse interstitial lung disease. During May 2018 admission she was treated with levaquin for 10 days as the Pseudomonas was resistant to cefepime, zosyn and sensitive to quinolones. Blood culture 11/14/2018 no growth today. Will continue meropenem and start vanacom ycin. 2) Chronic respiratory failure: intubated. 3) COPD exacerbation with pneumonia. Recommendations: contact isolation monitor fever start vancomycin with PK consult continue meropenem IV - will stop soon if not GNR isolated Will follow. Mirtha Hairston MD Infectious Diseases [facility] [id number] [phone] O [phone] Subjective Date of service: 11/19/18 Principal diagnosis: fever Interval history: Remains on the vent agitated noted fever 101. Objective - Exam Narrative Exam: General appearance: Alert in NAD Eyes: anicteric sclerae, moist conjunctivae; no lid-lag; PERRLA HENT: Atraumatic; oropharynx +ETT +OGT Lungs: emma rhonchi CV: RRR no murmur Abdomen: Soft, non-tender; no masses or hepatosplenomegaly Extremities: no edema, no cyanosis Skin: multiple emma arms ecchymoses Psych: agitated Neuro: somnolent but agitated - Constitutional Vitals: Vital Signs Temp Pulse Resp BP Pulse Ox 101 F H 113 H 20 163/74 93 11/19/18 08:00 11/19/18 10:30 11/19/18 10:30 11/19/18 10:30 11/19/18 10:30 Temperature -Last 24 Hours Temperature 101 F Temperature 100.7 F Temperature 99.1 F Temperature 99.8 F Temperature 100.7 F Temperature 100.7 F Temperature 100.2 F Temperature 100.2 F - Labs CBC & Chem 7: 11/18/18 09:35 11/19/18 09:25 Labs: Abnormal lab results 11/17/18 11/18/18 11/18/18 Range/Units 18:03 12:23 18:21 POC ABG pH (7.35-7.45) POC ABG pCO2 (35-45) POC ABG pO2 (80-105) Sodium (137-145) mmol/L Chloride (98-107) mmol/L Carbon Dioxide (22-30) mmol/L BUN (7-17) mg/dL Creatinine (0.7-1.2) mg/dL Glucose (65-100) mg/dL POC Glucose 128 H 140 H 160 H (70-105) 11/18/18 11/19/18 11/19/18 Range/Units 23:55 04:12 05:41 POC ABG pH 7.345 L (7.35-7.45) POC ABG pCO2 64.9 H (35-45) POC ABG pO2 69 L (80-105) Sodium (137-145) mmol/L Chloride (98-107) mmol/L Carbon Dioxide (22-30) mmol/L BUN (7-17) mg/dL Creatinine (0.7-1.2) mg/dL Glucose (65-100) mg/dL POC Glucose 151 H 145 H (70-105) 11/19/18 11/19/18 Range/Units 09:25 11:25 POC ABG pH (7.35-7.45) POC ABG pCO2 (35-45) POC ABG pO2 (80-105) Sodium 150 H (137-145) mmol/L Chloride 109.4 H (98-107) mmol/L Carbon Dioxide 32 H (22-30) mmol/L BUN 21 H (7-17) mg/dL Creatinine 0.3 L (0.7-1.2) mg/dL Glucose 149 H (65-100) mg/dL POC Glucose 160 H (70-105)
[2018-11-19] MEDS: QUEtiapine 100 MG TAB PO SCH (12:44)
[2018-11-19] MEDS ORDERED: ALBUTEROL 2.5 MG/3 ML NEBU IH PRN (13:00)
[2018-11-19] MEDS: TAMSULOSIN 0.4 MG CAP PO SCH (14:46)
--- NOTE | 2018-11-19 16:58 | Progress Note ---
Assessment and Plan /Acute on chronic combined respiratory failure requiring intubation: Respiratory failure appears to be secondary to acute COPD exacerbationn.; She was currently intubated sedated pulmonology following, we'll wean off as tolerated. cont Empiric antibiotics. Nebulizes when indicated. /End-stage COPD; with chronic hypoxia treat with iv steriods continue taper, abx, nebs around the clock / Sepsis, due to PNA cont empiric abx for now, ID consulted /Hypernatremia, cont free water with TF, follow BMP / HTN (hypertension) Patient currently has optimal control blood pressure. No changes in management. / Nicotine dependence we'll introduce nicotine patch when necessary. / Thrombocytopenia Remains 136 stable no active bleeding. Etiology at this time could be SIRS /Hypernatremia, cont to monitor BMP, iv fluid DVt Px, lovenox The high probability of a clinically significant, sudden or life threatening deterioration of the [multiple] system(s) required my full and direct attention, intervention and personal management. The aggregate critical care time was [35] minutes. This time is in addition to time spent performing reported procedures but includes the following: [x] Data Review and interpretation [x] Patient assessment and monitoring of vital signs [x] Documentation [x] Medication orders and management Brief History Pt is a 58 y/o CF with hx of COPD who presented to the ED via EMS on account of worsening sob. Apparently, the patient called 911 for shortness of breath. Per, EMS, he was noted to be saturating in the 60's in the field. She was given albuterol, steroids, and magnesium in the field. On arrival to the ED, the patient was altered, She was emergently intubated and placed on MV. Hospitalist Physical General appearance: Present: mild distress, disheveled, other (intubated, sedated on fentanyl.) Eyes: Present: PERRL ENT: other (patient is intubated), OGT in place, head flexed forward - Neck Neck: Present: supple - Respiratory Respiratory effort: normal Respiratory: bilateral: CTA, diminished - Cardiovascular Rhythm: regular Heart Sounds: Present: S1 & S2 - Extremities Extremities: No edema Peripheral Pulses: within normal limits - Abdominal General gastrointestinal: Present: soft, non-tender, normal bowel sounds Female genitourinary: Present: deferred - Rectal Rectal Exam: deferred - Integumentary Integumentary: Present: clear, warm, dry - Psychiatric Psychiatric: other (could not be obtained because patient is intubated and sedated) - Neurologic Neurologic: other (could not be obtained because patient is intubated and sedated) Subjective Date of service: 11/19/18 Principal diagnosis: fever Interval history: Patient seen and examined. Medical records and medication list reviewed. No acute event overnight noted by the RN. Patient remained intubated and sedated, on 4 point restraint Objective - Constitutional Vitals: Vital Signs - 12hr 11/19/18 11/19/18 11/19/18 05:00 05:15 05:30 Temperature Pulse Rate 113 H 122 H 94 H Pulse Rate [ From Monitor] Respiratory 20 15 20 Rate Blood Pressure 144/72 129/71 110/56 O2 Sat by Pulse 95 93 91 Oximetry 11/19/18 11/19/18 11/19/18 05:45 06:00 06:15 Temperature Pulse Rate 123 H 96 H 110 H Pulse Rate [ From Monitor] Respiratory 19 21 20 Rate Blood Pressure 138/70 109/55 109/56 O2 Sat by Pulse 94 85 90 Oximetry 11/19/18 11/19/18 11/19/18 06:30 06:45 07:00 Temperature Pulse Rate 123 H 97 H 134 H Pulse Rate [ From Monitor] Respiratory 21 20 18 Rate Blood Pressure 144/74 117/60 150/79 O2 Sat by Pulse 95 87 93 Oximetry 11/19/18 11/19/18 11/19/18 07:16 07:30 07:45 Temperature Pulse Rate 132 H 137 H 124 H Pulse Rate [ From Monitor] Respiratory 18 21 19 Rate Blood Pressure 119/69 149/91 172/78 O2 Sat by Pulse 91 95 96 Oximetry 11/19/18 11/19/18 11/19/18 08:00 08:15 08:30 Temperature 101 F H Pulse Rate 113 H 96 H 91 H Pulse Rate [ 113 H From Monitor] Respiratory 20 20 20 Rate Blood Pressure 119/67 125/62 132/65 O2 Sat by Pulse 96 95 91 Oximetry 11/19/18 11/19/18 11/19/18 08:45 09:00 09:09 Temperature Pulse Rate 90 93 H 118 H Pulse Rate [ From Monitor] Respiratory 20 20 Rate Blood Pressure 130/65 135/72 135/72 O2 Sat by Pulse 83 L 90 92 Oximetry 11/19/18 11/19/18 11/19/18 09:16 09:30 09:45 Temperature Pulse Rate 116 H 123 H 112 H Pulse Rate [ From Monitor] Respiratory 20 19 20 Rate Blood Pressure 155/109 155/109 135/63 O2 Sat by Pulse 92 92 94 Oximetry 11/19/18 11/19/18 11/19/18 10:00 10:15 10:30 Temperature Pulse Rate 117 H 106 H 113 H Pulse Rate [ From Monitor] Respiratory 20 20 20 Rate Blood Pressure 135/63 163/74 163/74 O2 Sat by Pulse 94 92 93 Oximetry 11/19/18 11/19/18 11/19/18 10:45 11:00 11:15 Temperature Pulse Rate 97 H 110 H 97 H Pulse Rate [ From Monitor] Respiratory 20 20 20 Rate Blood Pressure 184/66 168/66 173/58 O2 Sat by Pulse 91 93 93 Oximetry 11/19/18 11/19/18 11/19/18 11:28 11:30 11:45 Temperature 100.8 F H Pulse Rate 96 H 96 H Pulse Rate [ From Monitor] Respiratory 20 20 Rate Blood Pressure 151/69 150/66 O2 Sat by Pulse 92 92 Oximetry 11/19/18 11/19/18 11/19/18 12:00 12:15 12:30 Temperature 100.8 F H Pulse Rate 118 H 120 H 137 H Pulse Rate [ 121 H From Monitor] Respiratory 19 20 24 Rate Blood Pressure 150/66 144/70 144/70 O2 Sat by Pulse 93 94 92 Oximetry 11/19/18 11/19/18 11/19/18 12:45 12:51 13:00 Temperature Pulse Rate 122 H 134 H 107 H Pulse Rate [ From Monitor] Respiratory 17 13 Rate Blood Pressure 161/78 173/71 173/71 O2 Sat by Pulse 94 95 95 Oximetry 11/19/18 11/19/18 11/19/18 13:15 13:30 13:45 Temperature Pulse Rate 104 H 112 H 110 H Pulse Rate [ From Monitor] Respiratory 13 13 14 Rate Blood Pressure 118/62 119/63 118/61 O2 Sat by Pulse 94 94 94 Oximetry 11/19/18 11/19/18 11/19/18 14:00 14:15 14:30 Temperature Pulse Rate 107 H 107 H 93 H Pulse Rate [ From Monitor] Respiratory 13 14 13 Rate Blood Pressure 125/61 130/64 129/61 O2 Sat by Pulse 94 93 94 Oximetry 11/19/18 11/19/18 11/19/18 14:45 15:00 15:15 Temperature Pulse Rate 92 H 91 H 95 H Pulse Rate [ From Monitor] Respiratory 13 12 13 Rate Blood Pressure 130/62 130/61 136/64 O2 Sat by Pulse 94 95 95 Oximetry 11/19/18 15:30 Temperature Pulse Rate 89 Pulse Rate [ From Monitor] Respiratory 13 Rate Blood Pressure 137/65 O2 Sat by Pulse 95 Oximetry - Labs CBC & Chem 7: 11/18/18 09:35 11/19/18 09:25 Labs: Abnormal lab results 11/17/18 11/18/18 11/18/18 Range/Units 18:03 18:21 23:55 POC ABG pH (7.35-7.45) POC ABG pCO2 (35-45) POC ABG pO2 (80-105) Sodium (137-145) mmol/L Chloride (98-107) mmol/L Carbon Dioxide (22-30) mmol/L BUN (7-17) mg/dL Creatinine (0.7-1.2) mg/dL Glucose (65-100) mg/dL POC Glucose 128 H 160 H 151 H (70-105) 11/19/18 11/19/18 11/19/18 Range/Units 04:12 05:41 09:25 POC ABG pH 7.345 L (7.35-7.45) POC ABG pCO2 64.9 H (35-45) POC ABG pO2 69 L (80-105) Sodium 150 H (137-145) mmol/L Chloride 109.4 H (98-107) mmol/L Carbon Dioxide 32 H (22-30) mmol/L BUN 21 H (7-17) mg/dL Creatinine 0.3 L (0.7-1.2) mg/dL Glucose 149 H (65-100) mg/dL POC Glucose 145 H (70-105) 11/19/18 Range/Units 11:25 POC ABG pH (7.35-7.45) POC ABG pCO2 (35-45) POC ABG pO2 (80-105) Sodium (137-145) mmol/L Chloride (98-107) mmol/L Carbon Dioxide (22-30) mmol/L BUN (7-17) mg/dL Creatinine (0.7-1.2) mg/dL Glucose (65-100) mg/dL POC Glucose 160 H (70-105)
[2018-11-19] MEDS: ARFORMOTEROL 15 MCG/2 ML NEBU IH SCH (19:15)
[2018-11-19] MEDS: BUDESONIDE 0.5 MG/2 ML NEBU IH SCH (19:15)
[2018-11-19] MEDS ORDERED: QUEtiapine 25 MG TAB PO SCH (22:00)
[2018-11-20] MEDS ORDERED: SODIUM BICARBONATE 325 MG TAB FEEDTUBE PRN (01:46)
[2018-11-20] MEDS ORDERED: SIMPLE SYRUP 15 ML FEEDTUBE PRN ×2 (01:46)
[2018-11-20] MEDS ORDERED: LIPASE 10,500/PROTEASE 25,000/AMYLASE 43,750 (UNITS) DR CAP FEEDTUBE PRN (01:46)
--- NOTE | 2018-11-20 03:24 | XRay Report ---
CHEST 1 VIEW 11/20/2018 2:13 AM INDICATION / CLINICAL INFORMATION: follow up respiratory failure. COMPARISON: 11/19/18 FINDINGS: Patient is again rotated to the left SUPPORT DEVICES: Unchanged. HEART / MEDIASTINUM: Stable. LUNGS / PLEURA: Left lung base retrocardiac density is unchanged. No pneumothorax. ADDITIONAL FINDINGS: No significant additional findings. IMPRESSION: 1. No significant change. Signer Name: Stephen Hdz MD Signed: 11/20/2018 3:20 AM Workstation Name: [id number]
[2018-11-20 04:58] LABS: Mean Corpuscular HGB Conc 29 % (30-34); Mean Corpuscular Volume 76 fl (79-97); Red Blood Count 5.02 M/mm3 (3.65-5.03); Red Cell Distribution Width 19.7 % (13.2-15.2)
[2018-11-20 04:59] LABS: Hematocrit 38.3 % (30.3-42.9)
[2018-11-20 05:14] LABS: BUN/Creatinine Ratio 60; Blood Urea Nitrogen 18 mg/dL (7-17); Calcium 8.7 mg/dL (8.4-10.2); Hemolysis Index 5
[2018-11-20] MEDS: MEROPENEM/NS 1 GRAM/100 ML 1 GRAM/100 ML BAG IV SCH ×3 (05:17→21:00)
[2018-11-20] MEDS: fentaNYL DRIP Premix 2,000 MCG/100 ML BAG IV SCH (05:18)
[2018-11-20] MEDS: fentaNYL 100 MCG/2 ML INJ IV PRN (05:19)
[2018-11-20] MEDS: FREE WATER PO SCH (05:20)
[2018-11-20] MEDS: methylPREDNISolone Sod Succinate 125 MG/2 ML INJ IV SCH ×3 (05:20→21:09)
[2018-11-20 05:53] LABS: Platelet Count 80 K/mm3 (140-440)
--- NOTE | 2018-11-20 08:19 | Progress Note ---
Assessment and Plan Assessment and plan: --Acute on chronic combined respiratory failure requiring intubation: Respiratory failure appears to be secondary to acute COPD exacerbationn.; She was currently intubated sedated pulmonology following,wean as tolerated and extubate cont Empiric antibiotics. Nebulizes when indicated. --End-stage COPD; with chronic hypoxia treat with iv steriods continue taper, abx, nebs around the clock -- Sepsis, due to PNA cont empiric abx for now, ID consulted --Hypernatremia, cont free water with TF, Follow sodium levels --Malignant HTN (hypertension) Probably secondary to agitation, Ativan when necessary IV hydralazine when necessary --Sinus tachycardia; probably secondary to agitation Started Ativan when necessary, consider low dose beta blockers If no improvemen --Nicotine dependence Continue nicotine patch when necessary. --Thrombocytopenia Remains <100 stable no active bleeding. Etiology at this time could be SIRS Hematology following --DVt Px, lovenox The high probability of a clinically significant, sudden or life threatening deterioration of the [multiple] system(s) required my full and direct attention, intervention and personal management. The aggregate critical care time was [34] minutes. This time is in addition to time spent performing reported procedures but includes the following: [x] Data Review and interpretation [x] Patient assessment and monitoring of vital signs [x] Documentation [x] Medication orders and management History Interval history: Patient seen and examined medical records reviewed Patient remains intubated on ventilatory support Not in acute distress Vital signs noted Hospitalist Physical - Constitutional Vitals: Temp Pulse Resp BP Pulse Ox 99.8 F H 141 H 12 200/90 94 11/20/18 03:01 11/20/18 06:16 11/20/18 06:16 11/20/18 06:16 11/20/18 06:16 General appearance: Present: mild distress, disheveled, other (intubated sedated fentanyl.) - EENT Eyes: Present: PERRL, EOM intact - Neck Neck: Present: supple - Respiratory Respiratory effort: normal Respiratory: bilateral: diminished, rhonchi, negative: rales, wheezing - Cardiovascular Rhythm: regular Heart Sounds: Present: S1 & S2 - Extremities Extremities: no ischemia, No edema - Abdominal General gastrointestinal: soft, non-tender, non-distended, normal bowel sounds - Integumentary Integumentary: Present: clear, warm - Psychiatric Psychiatric: other (intubated on vent) - Neurologic Neurologic: other (intubated on vent) Results - Labs CBC & Chem 7: 11/21/18 04:38 11/21/18 04:38 Labs: Laboratory Last Values WBC 12.0 K/mm3 (4.5-11.0) H 11/20/18 04:39 RBC 5.02 M/mm3 (3.65-5.03) 11/20/18 04:39 Hgb 11.0 gm/dl (10.1-14.3) 11/20/18 04:39 Hct 38.3 % (30.3-42.9) 11/20/18 04:39 MCV 76 fl (79-97) L 11/20/18 04:39 MCH 22 pg (28-32) L 11/20/18 04:39 MCHC 29 % (30-34) L 11/20/18 04:39 RDW 19.7 % (13.2-15.2) H 11/20/18 04:39 Plt Count 80 K/mm3 (140-440) L 11/20/18 04:39 Lymph % (Auto) Hub [place]ander 11/15/18 04:20 [place] % (Auto) Hub Bander 11/15/18 04:20 Eos % (Auto) Hub [place]ander 11/15/18 04:20 Baso % (Auto) Hub [place]ander 11/15/18 04:20 Lymph # Hub [place]ander 11/15/18 04:20 [place] # Hub Bander 11/15/18 04:20 Eos # Hub Bander 11/15/18 04:20 Baso # Hub [place]ander 11/15/18 04:20 Add Manual Diff Complete 11/16/18 00:11 Total Counted 100 11/16/18 00:11 Seg Neutrophils % Hub [place]ander 11/16/18 00:11 Seg Neuts % (Manual) 89.0 % (40.0-70.0) H 11/16/18 00:11 Band Neutrophils % 0 % 11/16/18 00:11 Lymphocytes % (Manual) 6.0 % (13.4-35.0) L 11/16/18 00:11 Reactive Lymphs % (Man) 0 % 11/16/18 00:11 Monocytes % (Manual) 5.0 % (0.0-7.3) 11/16/18 00:11 Eosinophils % (Manual) 0 % (0.0-4.3) 11/16/18 00:11 Basophils % (Manual) 0 % (0.0-1.8) 11/16/18 00:11 Metamyelocytes % 0 % 11/16/18 00:11 Myelocytes % 0 % 11/16/18 00:11 Promyelocytes % 0 % 11/16/18 00:11 Blast Cells % 0 % 11/16/18 00:11 Nucleated RBC % Not Reportable 11/16/18 00:11 Seg Neutrophils # Hub Bander 11/15/18 04:20 Seg Neutrophils # Man 10.0 K/mm3 (1.8-7.7) H 11/16/18 00:11 Band Neutrophils # 0.0 K/mm3 11/16/18 00:11 Lymphocytes # (Manual) 0.7 K/mm3 (1.2-5.4) L 11/16/18 00:11 Abs React Lymphs (Man) 0.0 K/mm3 11/16/18 00:11 Monocytes # (Manual) 0.6 K/mm3 (0.0-0.8) 11/16/18 00:11 Eosinophils # (Manual) 0.0 K/mm3 (0.0-0.4) 11/16/18 00:11 Basophils # (Manual) 0.0 K/mm3 (0.0-0.1) 11/16/18 00:11 Metamyelocytes # 0.0 K/mm3 11/16/18 00:11 Myelocytes # 0.0 K/mm3 11/16/18 00:11 Promyelocytes # 0.0 K/mm3 11/16/18 00:11 Blast Cells # 0.0 K/mm3 11/16/18 00:11 WBC Morphology Not Reportable 11/16/18 00:11 Hypersegmented Neuts Not Reportable 11/16/18 00:11 Hyposegmented Neuts Not Reportable 11/16/18 00:11 Hypogranular Neuts Not Reportable 11/16/18 00:11 Smudge Cells Not Reportable 11/16/18 00:11 Toxic Granulation Not Reportable 11/16/18 00:11 Toxic Vacuolation Not Reportable 11/16/18 00:11 Dohle Bodies Not Reportable 11/16/18 00:11 Pelger-Huet Anomaly Not Reportable 11/16/18 00:11 Neha Rods Not Reportable 11/16/18 00:11 Platelet Estimate Not Reportable 11/16/18 00:11 Clumped Platelets Not Reportable 11/16/18 00:11 Plt Clumps, EDTA Not Reportable 11/16/18 00:11 Large Platelets Not Reportable 11/16/18 00:11 Giant Platelets 1+ 11/16/18 00:11 Platelet Satelliting Not Reportable 11/16/18 00:11 Plt Morphology Comment Not Reportable 11/16/18 00:11 RBC Morphology Not Reportable 11/16/18 00:11 Dimorphic RBCs Not Reportable 11/16/18 00:11 Polychromasia Not Reportable 11/16/18 00:11 Hypochromasia 2+ 11/16/18 00:11 Poikilocytosis Not Reportable 11/16/18 00:11 Anisocytosis 1+ 11/16/18 00:11 Microcytosis Not Reportable 11/16/18 00:11 Macrocytosis Not Reportable 11/16/18 00:11 Spherocytes Not Reportable 11/16/18 00:11 Pappenheimer Bodies Not Reportable 11/16/18 00:11 Sickle Cells Not Reportable 11/16/18 00:11 Target Cells Not Reportable 11/16/18 00:11 Tear Drop Cells Not Reportable 11/16/18 00:11 Ovalocytes Not Reportable 11/16/18 00:11 Helmet Cells Not Reportable 11/16/18 00:11 [place] Bodies Not Reportable 11/16/18 00:11 [place] Rings Not Reportable 11/16/18 00:11 [place] Cells Not Reportable 11/16/18 00:11 Bite Cells Not Reportable 11/16/18 00:11 Crenated Cell Not Reportable 11/16/18 00:11 Elliptocytes Not Reportable 11/16/18 00:11 Acanthocytes (Spur) Not Reportable 11/16/18 00:11 Rouleaux Not Reportable 11/16/18 00:11 Hemoglobin C Crystals Not Reportable 11/16/18 00:11 Schistocytes Not Reportable 11/16/18 00:11 Malaria parasites Not Reportable 11/16/18 00:11 Hernan Bodies Not Reportable 11/16/18 00:11 Hem Pathologist Commnt No 11/16/18 00:11 PT 14.1 Sec. (12.2-14.9) 11/14/18 19:39 INR 1.12 (0.87-1.13) 11/14/18 19:39 POC ABG pH 7.423 (7.35-7.45) 11/20/18 04:06 ABG pH 7.247 pH Units (7.350-7.450) L 11/16/18 05:10 POC ABG pCO2 55.6 (35-45) H 11/20/18 04:06 ABG pCO2 64.0 mm Hg 11/16/18 05:10 POC ABG pO2 66 (80-105) L 11/20/18 04:06 ABG pO2 65.7 mm Hg (80.0-90.0) L 11/16/18 05:10 POC ABG HCO3 36.3 (22-26 mml/L) 11/20/18 04:06 ABG HCO3 27.3 mmol/L (20.0-26.0) H 11/16/18 05:10 POC ABG Total CO2 38 (23-27mmol/L) 11/20/18 04:06 POC ABG O2 Sat 92 11/20/18 04:06 ABG O2 Saturation 89.9 % (95.0-99.0) L 11/16/18 05:10 ABG O2 Content 13.0 (0.0-44) 11/16/18 05:10 POC ABG Base Excess 12 ((-2) - (+3)mmol/L) 11/20/18 04:06 ABG Base Excess -0.9 mmol/L (-2.0-3.0) 11/16/18 05:10 ABG Hemoglobin 10.5 gm/dl (12.0-16.0) L 11/16/18 05:10 ABG Carboxyhemoglobin 1.7 % (0.0-5.0) 11/16/18 05:10 ABG Methemoglobin 0.5 % (0.0-1.5) 11/16/18 05:10 Oxyhemoglobin 87.9 % (95.0-99.0) L 11/16/18 05:10 FiO2 50 % 11/20/18 04:06 Sodium 151 mmol/L (137-145) H 11/20/18 04:39 Potassium 4.4 mmol/L (3.6-5.0) 11/20/18 04:39 Chloride 109.0 mmol/L (98-107) H 11/20/18 04:39 Carbon Dioxide 33 mmol/L (22-30) H 11/20/18 04:39 Anion Gap 13 mmol/L 11/20/18 04:39 BUN 18 mg/dL (7-17) H 11/20/18 04:39 Creatinine 0.3 mg/dL (0.7-1.2) L 11/20/18 04:39 Estimated GFR > 60 ml/min 11/20/18 04:39 BUN/Creatinine Ratio 60 % 11/20/18 04:39 Glucose 146 mg/dL (65-100) H 11/20/18 04:39 POC Glucose 137 (70-105) H 11/20/18 05:14 Lactic Acid 1.00 mmol/L (0.7-2.0) 11/19/18 15:47 Calcium 8.7 mg/dL (8.4-10.2) 11/20/18 04:39 Total Bilirubin 0.20 mg/dL (0.1-1.2) 11/14/18 19:39 AST 13 units/L (5-40) 11/14/18 19:39 ALT 6 units/L (7-56) L 11/14/18 19:39 Alkaline Phosphatase 85 units/L (35-129) 11/14/18 19:39 Troponin T < 0.010 ng/mL (0.00-0.029) 11/15/18 04:20 C-Reactive Protein 0.00 mg/dL (0.00-1.30) 11/19/18 15:47 Total Protein 6.2 g/dL (6.3-8.2) L 11/14/18 19:39 Albumin 3.4 g/dL (3.9-5) L 11/14/18 19:39 Albumin/Globulin Ratio 1.2 % 11/14/18 19:39 Urine Color Yellow (Yellow) 11/14/18 20:29 Urine Turbidity Clear (Clear) 11/14/18 20:29 Urine pH 5.0 (5.0-7.0) 11/14/18 20:29 Ur Specific [place] 1.026 (1.003-1.030) 11/14/18 20:29 Urine Protein 100 mg/dl mg/dL (Negative) 11/14/18 20:29 Urine Glucose (UA) Neg mg/dL (Negative) 11/14/18 20:29 Urine Ketones Neg mg/dL (Negative) 11/14/18 20:29 Urine Blood Sm (Negative) 11/14/18 20:29 Urine Nitrite Neg (Negative) 11/14/18 20:29 Urine Bilirubin Neg (Negative) 11/14/18 20:29 Urine Urobilinogen < 2.0 mg/dL (<2.0) 11/14/18 20:29 Ur Leukocyte Esterase Neg (Negative) 11/14/18 20:29 Urine WBC (Auto) 6.0 /HPF (0.0-6.0) 11/14/18 20:29 Urine RBC (Auto) 16.0 /HPF (0.0-6.0) 11/14/18 20:29 U Epithel Cells (Auto) 1.0 /HPF (0-13.0) 11/14/18 20:29 Urine Bacteria (Auto) 1+ /HPF (Negative) 11/14/18 20: Hyaline Casts 36 /LPF 11/14/18 20:29 Urine Mucus 1+ /HPF 11/14/18 20:29 Vancomycin Trough 12.1 ug/mL (5.0-20.0) 11/19/18 09:25 Active Medications - Current Medications Current Medications: Generic Name Dose Route Start Last Admin Trade Name Freq PRN Reason Stop Dose Admin Acetaminophen 650 mg 11/14/18 22:11 11/19/18 12:00 Tylenol PO 650 mg Q4H PRN Administration Pain MILD(1-3)/Fever >100.5/PRAJAPATI Albuterol 2.5 mg 11/19/18 13:00 Proventil IH Q4HRT PRN Shortness Of Breath Lipase/Protease/Amylase 1 each 11/16/18 12:29 11/18/18 08:15 Chicho Pereira 10,500 Unit FEEDTUBE 1 each PRN PRN Administration For Clogged Feeding Tube Lipase/Protease/Amylase 1 each 11/20/18 01:46 Chicho Pereira 10,500 Unit FEEDTUBE PRN PRN For Clogged Feeding Tube Arformoterol Tartrate 15 mcg 11/19/18 20:00 11/19/18 19:15 Brovana Nebu IH 15 mcg Q12HRT DOMINICK Administration Baclofen 10 mg 11/16/18 11:00 11/19/18 21:10 Lioresal PO 10 mg BID DOMINICK Administration Budesonide 0.5 mg 11/19/18 20:00 11/19/18 19:15 Pulmicort IH 0.5 mg Q12HRT DOMINICK Administration Famotidine 20 mg 11/16/18 10:00 11/19/18 21:09 Pepcid PO 20 mg BID DOMINICK Administration Fentanyl 50 mcg 11/14/18 19:14 11/20/18 05:19 Sublimaze IV 50 mcg Q10MIN PRN Administration ANALGESIA Hydrophilic Ointment 1 applic 11/14/18 19:14 Vaseline Lip Therapy TP Q2HR PRN Dry Lips Fentanyl Citrate 2,000 mcg in 100 mls @ 3.629 mls/hr 11/14/18 20:00 11/20/18 05:18 Fentanyl Drip Premix IV 3 mcg/kg/hr TITR DOMINICK 10.886 mls/hr Administration Protocol 1 MCG/KG/HR Vancomycin HCl 1,500 mg/ 530 mls @ 333.333 mls/hr 11/17/18 10:00 11/19/18 21:08 Sodium Chloride IV 333.333 mls/hr Q12H DOMINICK Administration MEROPENEM/NS 1 GRAM/100 ML 1 gram in 100 mls @ 100 mls/hr 11/18/18 16:00 11/20/18 05:17 Merrem/Ns 1 Gram/100 Ml IV 100 mls/hr Q8HR DOMINICK Administration Methylprednisolone Sodium Succinate 60 mg 11/15/18 22:00 11/20/18 05:20 Solu-Medrol IV 60 mg Q8HR DOMINICK Administration Multi-Ingred Cream/Lotion/Oil/Oint 1 applic 11/14/18 19:14 Artificial Tears Ophth Oint OU Q4HR PRN Dry Eye(s) Nicotine 14 mg 11/15/18 16:00 11/19/18 09:30 Habitrol TD 14 mg QDAY DOMINICK Administration Ondansetron HCl 4 mg 11/14/18 22:11 Zofran IV Q8H PRN Nausea And Vomiting Quetiapine Fumarate 100 mg 11/19/18 13:00 11/19/18 12:44 Seroquel PO 100 mg QAM DOMINICK Administration Quetiapine Fumarate 200 mg 11/19/18 22:00 11/19/18 21:10 Seroquel PO 200 mg QHS DOMINICK Administration Simple Syrup 15 ml 11/16/18 12:29 Simple Syrup FEEDTUBE PRN PRN Hypoglycemia Simple Syrup 30 ml 11/16/18 12:29 Simple Syrup FEEDTUBE PRN PRN Hypoglycemia Simple Syrup 15 ml 11/20/18 01:46 Simple Syrup FEEDTUBE PRN PRN Hypoglycemia Simple Syrup 30 ml 11/20/18 01:46 Simple Syrup FEEDTUBE PRN PRN Hypoglycemia Sodium Bicarbonate 325 mg 11/16/18 12:29 11/18/18 08:15 Sodium Bicarbonate FEEDTUBE 325 mg PRN PRN Administration For Clogged Feeding Tube Sodium Bicarbonate 325 mg 11/20/18 01:46 Sodium Bicarbonate FEEDTUBE PRN PRN For Clogged Feeding Tube Sodium Chloride 10 ml 11/15/18 10:00 11/19/18 09:31 Sodium Chloride Flush Syringe 10 Ml IV 10 ml BID DOMINICK Administration Sodium Chloride 10 ml 11/14/18 22:11 Sodium Chloride Flush Syringe 10 Ml IV PRN PRN LINE FLUSH Tamsulosin HCl 0.4 mg 11/19/18 13:00 11/19/18 14:46 Flomax PO 0.4 mg QDAY DOMINICK Administration Venlafaxine HCl 100 mg 11/16/18 14:00 11/19/18 21:12 Effexor PO 100 mg TID DOMINICK Administration Nutrition/Malnutrition Assess - Dietary Evaluation Nutrition/Malnutrition Findings: Nutrition Notes Start: 11/16/18 08:00 Freq: Status: Active Protocol: Document 11/17/18 09:30 NASRA (Rec: 11/17/18 10:18 NASRA [email or web address]) Co-Sign 11/17/18 09:30 LM Nutrition Notes Initial or Follow up Reassessment Current Diagnosis COPD,Coronary Artery Disease, Hypertension Other Pertinent Diagnosis Nicotine dependence Current Diet Vital AF 1.2 at 55ml/hr Labs/Tests Reviewed Pertinent Medications Solumedrol Height 5 ft 2 in Weight 75.9 kg [place] Body Weight (kg) 50.00 BMI 30.6 Subjective/Other Information TF running at goal rate. Per MD pt is tolerating TF. Percent of energy/protein needs met: 100%/99% Burn Absent Trauma Absent Minimum of two criteria No #1 Nutrition Diagnosis Inadequate oral intake Diagnosis Progress(for reassessment Continues documentation) Is patient on ventilator? Yes Is Patient Ambulatory and/or Out of Bed No REE-([facility]-confined to bed) 3064.546 Calculation Used for Recommendations [facility] Additional Notes Protein: 100g (>2g/kg IBW 50kg ) Fluid: 1ml/kcal Nutrition Intervention Change Diet Order: Continue current Nutrition Support: Vital AF 1.2 at 55 ml/hr Flush 100 ml q4hr Kcal 1,584 Protein (gm) 99 Fluid (mL) 1,071 Goal #1 TF tolerance Goal #2 Meet at least 75% energy and protein needs. Anticipated Discharge Needs: Unable to determine at this time Follow-Up By: 11/24/18 Additional Comments F/U for TF tolerance/rate
[2018-11-20] MEDS ORDERED: hydrALAZINE 20 MG/1 ML INJ IV PRN (08:30)
[2018-11-20] MEDS: BUDESONIDE 0.5 MG/2 ML NEBU IH SCH ×2 (08:38→20:14)
[2018-11-20] MEDS: ARFORMOTEROL 15 MCG/2 ML NEBU IH SCH ×2 (08:38→20:14)
[2018-11-20] MEDS: NICOTINE 14 MG/24 HR PATCH TD SCH (09:24)
[2018-11-20] MEDS: VENLAFAXINE 25 MG TAB PO SCH ×3 (09:24→21:00)
[2018-11-20] MEDS: FAMOTIDINE 20 MG TAB PO SCH ×2 (09:25→21:00)
[2018-11-20] MEDS: BACLOFEN 10 MG TAB PO SCH ×2 (09:25→21:00)
[2018-11-20] MEDS: QUEtiapine 100 MG TAB PO SCH ×3 (09:25→21:00)
[2018-11-20] MEDS: TAMSULOSIN 0.4 MG CAP PO SCH (09:25)
[2018-11-20] MEDS: LORazepam 2 MG/ML VIAL IV PRN ×3 (09:35→19:09)
[2018-11-20] MEDS: VANCOMYCIN 1,500 MG in SODIUM CHLORIDE 0.9% 500 ML 500 ML IV SCH ×2 (09:46→21:10)
--- NOTE | 2018-11-20 11:05 | Progress Note ---
Assessment and Plan Cultures: Blood culture 11/14/2018 no growth today. Tracheal aspirated 11/14/2018 MRSA VITO=2 Tracheal aspirated 11/17/2018 pending Assessment: 58 y/o female with history of tobacco abuse, COPD with chronic respiratory failure on home oxygen known to our service in May 2018 with septic shock and MDR-Pseudomonas/Ecoli pneumonia, admitted on 11/14/2018 due to worsening SOB: 1) Sepsis: still high fever on vancomycin and meropenem; source is LLL pneumonia. CT chest showed LLL pneumonia with minimal emma effusions, no loculation or abscess. Tracheal asp on 11/14 MRSA VITO=2. Recent history of MDR Pseudomonas pneumonia; CXR with mild left basilar pleuroparietal disease, mild diffuse interstitial lung disease. During May 2018 admission she was treated with levaquin for 10 days as the Pseudomonas was resistant to cefepime, zosyn and sensitive to quinolones. Blood culture 11/14/2018 no growth today. Will continue meropenem and start vanacomycin. 2) Chronic respiratory failure: intubated. 3) COPD exacerbation with pneumonia. Recommendations: stop vancomycin with PK consult - VITO=2 and still fever and desaturations stop meropenem IV - no evidence of GNR infection start linezolid 600 mg IV q 12 hours with careful platelet monitoring - already down to 80k on vanco monitor fever Will follow. Mirtha Hairston MD Infectious Diseases Community Relations Representative [facility] ([facility]) M [phone] O [phone] Subjective Date of service: 11/20/18 Principal diagnosis: fever Interval history: Remains on the vent agitated noted still fever 101. Episodes of desating on the vent Objective - Exam Narrative Exam: General appearance: Alert in NAD Eyes: anicteric sclerae, moist conjunctivae; no lid-lag; PERRLA HENT: Atraumatic; oropharynx +ETT +OGT Lungs: emma rhonchi CV: RRR no murmur Abdomen: Soft, non-tender; no masses or hepatosplenomegaly Extremities: no edema, no cyanosis Skin: multiple emma arms ecchymoses Psych: agitated Neuro: somnolent but agitated - Constitutional Vitals: Vital Signs Temp Pulse Resp BP Pulse Ox 100.2 F H 107 H 13 151/61 98 11/20/18 08:00 11/20/18 10:30 11/20/18 10:30 11/20/18 10:46 11/20/18 10:46 Temperature -Last 24 Hours Temperature 100.2 F Temperature 99.8 F Temperature 101 F Temperature 100.8 F Temperature 99.7 F Temperature 99.7 F Temperature 100.8 F Temperature 100.8 F - Labs CBC & Chem 7: 11/20/18 04:39 11/20/18 04:39 Labs: Abnormal lab results 11/19/18 11/19/18 11/19/18 Range/Units 11:25 17:55 17:58 WBC (4.5-11.0) K/mm3 MCV (79-97) fl MCH (28-32) pg MCHC (30-34) % RDW (13.2-15.2) % Plt Count (140-440) K/mm3 POC ABG pH 7.346 L (7.35-7.45) POC ABG pCO2 65.3 H (35-45) POC ABG pO2 71 L (80-105) Sodium (137-145) mmol/L Chloride (98-107) mmol/L Carbon Dioxide (22-30) mmol/L BUN (7-17) mg/dL Creatinine (0.7-1.2) mg/dL Glucose (65-100) mg/dL POC Glucose 160 H 171 H (70-105) 11/19/18 11/20/18 11/20/18 Range/Units 23:15 04:06 04:39 WBC 12.0 H (4.5-11.0) K/mm3 MCV 76 L (79-97) fl MCH 22 L (28-32) pg MCHC 29 L (30-34) % RDW 19.7 H (13.2-15.2) % Plt Count 80 L (140-440) K/mm3 POC ABG pH (7.35-7.45) POC ABG pCO2 55.6 H (35-45) POC ABG pO2 66 L (80-105) Sodium (137-145) mmol/L Chloride (98-107) mmol/L Carbon Dioxide (22-30) mmol/L BUN (7-17) mg/dL Creatinine (0.7-1.2) mg/dL Glucose (65-100) mg/dL POC Glucose 156 H (70-105) 11/20/18 11/20/18 Range/Units 04:39 05:14 WBC (4.5-11.0) K/mm3 MCV (79-97) fl MCH (28-32) pg MCHC (30-34) % RDW (13.2-15.2) % Plt Count (140-440) K/mm3 POC ABG pH (7.35-7.45) POC ABG pCO2 (35-45) POC ABG pO2 (80-105) Sodium 151 H (137-145) mmol/L Chloride 109.0 H (98-107) mmol/L Carbon Dioxide 33 H (22-30) mmol/L BUN 18 H (7-17) mg/dL Creatinine 0.3 L (0.7-1.2) mg/dL Glucose 146 H (65-100) mg/dL POC Glucose 137 H (70-105)
--- NOTE | 2018-11-20 13:13 | Progress Note ---
Assessment and Plan Acute and chronic hypoxic-hypercapnic respiratory failure AE-COPD Tobacco use disorder/Nicotine dependence( on going) Hypernatremia History of HTN, hypotensive at presentation Chronic narcotic dependence Chronic back pain Anxiety disorder - increase Seroquel dose - get dopplers of lower extremity result's - Daily SAT and SBT as tolerated - VAP bundle addressed - Lung protective strategies - Oxygen restrictive strategies (PaO2 of 60 with O2 sats 88-90% is acceptable) - continue bronchodilators with pulmonary hygiene per RT - continue trial of flomax re: urinary retention - pull nunez in 48-72 hours hopefully - continue Brovana and pulmicort re: severe COPD - increase TV to 450 ml's - reduce set rate to 12/min - repeat ABG at 6pm - get lactate and CRP levels to aid clinical decision making - Stop benzodiazepine's, reduce the possibility of delirium - Continue with fentanyl, titrate for RASS of 0 to -1 - Maintenance of sleep-wake cycle, avoid delirium - continue enteral nutritional support at goal rate as tolerated - Accuchecks with glycemic control - While critically ill target blood glucose of 140-180 mg/dL; avoid hypoglycemic - VTE prophylaxis(enoxaparin) - Stress ulcer prophylaxis( Famotidine) - continue systemic Steroids - Empiric Antibiotics ; de-escalate per ID rec's - Monitor hemodynamics closely - Avoid delirium - Nicotine withdrawal precautions, nicotine patch - continue other care per attending / other senior professional services consultant's .... re-evaluate in am & prn CONDITION: CRITICAL PROGNOSIS: GUARDED CODE STATUS: FULL CODE In view of ongoing smoking, recurrent hospital admission, will need to re- address advance directives and goals of care, once the patient is able to be a part of that discussion. Will also address smoking cessation again, once she is able to be a part of that discussion The high probability of a clinically significant, sudden or life-threatening deterioration of the respiratory, cardiovascular, neurology, endocrine system(s) required my full and direct attention, intervention and personal management. The aggregate critical care time was [32] minutes without overlap. Time includes spent on; [x] Data Review and interpretation [x] Patient assessment and monitoring of vital signs [x] Documentation [x] Medication orders and management Subjective Date of service: 11/20/18 Principal diagnosis: Ac and ch hypoxic hypercapnic resp failure; AE-COPD; Tobacco use disorder Interval history: Patient is seen today for: Ac and ch hypoxic hypercapnic resp failure; AE-COPD; Tobacco use disorder/Nicotine dependence; Hypernatremia; HTN (hypotensive at presentation 0; Chronic narcotic dependence ; Chronic back pain; Anxiety disorder Seen and examined at bedside; 24-hour events reviewed; nursing and respiratory care staff consulted; no adverse overnight events reported to me; laying in bed; still agitated; remains on MVS; weaning tenuously and FiO2 still at 50% with peep of 8 cm H2O Objective Vital Signs - 12hr 11/20/18 11/20/18 11/20/18 01:15 01:30 01:46 Temperature Pulse Rate 148 H 127 H 136 H Pulse Rate [ Anterior Bilateral] Pulse Rate [ Bilateral Bases ] Pulse Rate [ From Monitor] Respiratory 22 17 21 Rate Respiratory Rate [Anterior Bilateral] Respiratory Rate [Bilateral Bases] Blood Pressure 162/89 158/82 148/80 O2 Sat by Pulse 92 95 93 Oximetry 11/20/18 11/20/18 11/20/18 02:00 02:16 02:30 Temperature Pulse Rate 141 H 151 H 144 H Pulse Rate [ Anterior Bilateral] Pulse Rate [ Bilateral Bases ] Pulse Rate [ From Monitor] Respiratory 21 21 18 Rate Respiratory Rate [Anterior Bilateral] Respiratory Rate [Bilateral Bases] Blood Pressure 148/80 158/82 202/103 O2 Sat by Pulse 100 94 89 Oximetry 11/20/18 11/20/18 11/20/18 02:45 03:00 03:01 Temperature 99.8 F H Pulse Rate 141 H 130 H Pulse Rate [ Anterior Bilateral] Pulse Rate [ Bilateral Bases ] Pulse Rate [ From Monitor] Respiratory 16 20 Rate Respiratory Rate [Anterior Bilateral] Respiratory Rate [Bilateral Bases] Blood Pressure 202/105 202/105 O2 Sat by Pulse 94 94 Oximetry 11/20/18 11/20/18 11/20/18 03:16 03:30 03:44 Temperature Pulse Rate 126 H 124 H 144 H Pulse Rate [ Anterior Bilateral] Pulse Rate [ Bilateral Bases ] Pulse Rate [ From Monitor] Respiratory 18 16 Rate Respiratory Rate [Anterior Bilateral] Respiratory Rate [Bilateral Bases] Blood Pressure 162/80 158/81 217/105 O2 Sat by Pulse 95 95 92 Oximetry 11/20/18 11/20/18 11/20/18 03:46 04:00 04:16 Temperature Pulse Rate 137 H 146 H 143 H Pulse Rate [ Anterior Bilateral] Pulse Rate [ Bilateral Bases ] Pulse Rate [ 145 H From Monitor] Respiratory 22 15 18 Rate Respiratory Rate [Anterior Bilateral] Respiratory Rate [Bilateral Bases] Blood Pressure 217/105 217/105 161/110 O2 Sat by Pulse 92 93 91 Oximetry 11/20/18 11/20/18 11/20/18 04:30 04:46 05:00 Temperature Pulse Rate 146 H 141 H 141 H Pulse Rate [ Anterior Bilateral] Pulse Rate [ Bilateral Bases ] Pulse Rate [ From Monitor] Respiratory 22 19 22 Rate Respiratory Rate [Anterior Bilateral] Respiratory Rate [Bilateral Bases] Blood Pressure 161/110 191/122 191/122 O2 Sat by Pulse 93 93 93 Oximetry 11/20/18 11/20/18 11/20/18 05:15 05:30 05:45 Temperature Pulse Rate 130 H 126 H 115 H Pulse Rate [ Anterior Bilateral] Pulse Rate [ Bilateral Bases ] Pulse Rate [ From Monitor] Respiratory 16 22 13 Rate Respiratory Rate [Anterior Bilateral] Respiratory Rate [Bilateral Bases] Blood Pressure 200/98 179/134 149/79 O2 Sat by Pulse 95 96 97 Oximetry 11/20/18 11/20/18 11/20/18 06:00 06:16 06:30 Temperature Pulse Rate 132 H 141 H 133 H Pulse Rate [ Anterior Bilateral] Pulse Rate [ Bilateral Bases ] Pulse Rate [ From Monitor] Respiratory 19 12 22 Rate Respiratory Rate [Anterior Bilateral] Respiratory Rate [Bilateral Bases] Blood Pressure 149/79 200/90 200/90 O2 Sat by Pulse 93 94 93 Oximetry 11/20/18 11/20/18 11/20/18 06:45 07:00 07:16 Temperature Pulse Rate 137 H 137 H 138 H Pulse Rate [ Anterior Bilateral] Pulse Rate [ Bilateral Bases ] Pulse Rate [ From Monitor] Respiratory 24 14 18 Rate Respiratory Rate [Anterior Bilateral] Respiratory Rate [Bilateral Bases] Blood Pressure 189/96 189/96 166/100 O2 Sat by Pulse 94 92 93 Oximetry 11/20/18 11/20/18 11/20/18 07:30 07:46 08:00 Temperature 100.2 F H Pulse Rate 142 H 141 H 143 H Pulse Rate [ Anterior Bilateral] Pulse Rate [ Bilateral Bases ] Pulse Rate [ 143 H From Monitor] Respiratory 21 19 14 Rate Respiratory Rate [Anterior Bilateral] Respiratory Rate [Bilateral Bases] Blood Pressure 151/95 167/98 167/98 O2 Sat by Pulse 91 94 92 Oximetry 1011/20/18 11/20/18 08:15 08:29 08:30 Temperature Pulse Rate 130 H 117 H 122 H Pulse Rate [ Anterior Bilateral] Pulse Rate [ Bilateral Bases ] Pulse Rate [ From Monitor] Respiratory 13 13 Rate Respiratory Rate [Anterior Bilateral] Respiratory Rate [Bilateral Bases] Blood Pressure 162/67 131/77 162/67 O2 Sat by Pulse 95 94 94 Oximetry 11/20/18 11/20/18 11/20/18 08:45 08:57 09:00 Temperature Pulse Rate 118 H 115 H Pulse Rate [ 92 H Anterior Bilateral] Pulse Rate [ 103 H Bilateral Bases ] Pulse Rate [ From Monitor] Respiratory 12 12 Rate Respiratory 14 Rate [Anterior Bilateral] Respiratory 13 Rate [Bilateral Bases] Blood Pressure 128/70 130/70 O2 Sat by Pulse 97 96 Oximetry 11/20/18 11/20/18 11/20/18 09:15 09:30 09:46 Temperature Pulse Rate 110 H 111 H 117 H Pulse Rate [ Anterior Bilateral] Pulse Rate [ Bilateral Bases ] Pulse Rate [ From Monitor] Respiratory 14 13 12 Rate Respiratory Rate [Anterior Bilateral] Respiratory Rate [Bilateral Bases] Blood Pressure 120/64 120/64 145/82 O2 Sat by Pulse 96 96 95 Oximetry 11/20/18 11/20/18 11/20/18 10:00 10:15 10:30 Temperature Pulse Rate 122 H 114 H 107 H Pulse Rate [ Anterior Bilateral] Pulse Rate [ Bilateral Bases ] Pulse Rate [ From Monitor] Respiratory 14 15 13 Rate Respiratory Rate [Anterior Bilateral] Respiratory Rate [Bilateral Bases] Blood Pressure 147/75 147/70 151/61 O2 Sat by Pulse 94 93 94 Oximetry 11/20/18 11/20/18 11/20/18 10:46 11:00 11:15 Temperature Pulse Rate 104 H 97 H Pulse Rate [ Anterior Bilateral] Pulse Rate [ Bilateral Bases ] Pulse Rate [ From Monitor] Respiratory 13 13 Rate Respiratory Rate [Anterior Bilateral] Respiratory Rate [Bilateral Bases] Blood Pressure 151/61 86/40 95/50 O2 Sat by Pulse 98 99 98 Oximetry 11/20/18 11/20/18 11/20/18 11:30 11:45 12:00 Temperature Pulse Rate 98 H 101 H 107 H Pulse Rate [ Anterior Bilateral] Pulse Rate [ Bilateral Bases ] Pulse Rate [ 109 H From Monitor] Respiratory 14 14 14 Rate Respiratory Rate [Anterior Bilateral] Respiratory Rate [Bilateral Bases] Blood Pressure 99/51 102/52 103/55 O2 Sat by Pulse 96 95 95 Oximetry 11/20/18 11/20/18 11/20/18 12:15 12:24 12:30 Temperature Pulse Rate 110 H 109 H 110 H Pulse Rate [ Anterior Bilateral] Pulse Rate [ Bilateral Bases ] Pulse Rate [ From Monitor] Respiratory 14 14 Rate Respiratory Rate [Anterior Bilateral] Respiratory Rate [Bilateral Bases] Blood Pressure 100/51 100/51 99/52 O2 Sat by Pulse 95 94 94 Oximetry 11/20/18 11/20/18 12:45 13:00 Temperature Pulse Rate 101 H 96 H Pulse Rate [ Anterior Bilateral] Pulse Rate [ Bilateral Bases ] Pulse Rate [ From Monitor] Respiratory 18 15 Rate Respiratory Rate [Anterior Bilateral] Respiratory Rate [Bilateral Bases] Blood Pressure 99/52 99/52 O2 Sat by Pulse 93 92 Oximetry Constitutional: appears uncomfortable, other (elderly looking obese CF, normocephalic with increased resp effort at rest on MVS) Eyes: non-icteric ENT: oropharynx moist, other (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) Neck: supple, no lymphadenopathy, no JVD, other (large neck circumference) Effort: mildly labored Ascultation: Bilateral: diminished breath sounds, rhonchi Percussion: Bilateral: not dull Cardiovascular: regular rate and rhythm Gastrointestinal: normoactive bowel sounds, soft, non-tender, non-distended Integumentary: normal Extremities: no cyanosis, no edema, pink and warm, pulses normal Neurologic: non-focal exam (grossly), pupils equal and round, motor strength normal and, other (agitated) Psychiatric: other (unable to assess) CBC and BMP: 11/20/18 04:39 11/20/18 04:39 ABG, PT/INR, D-dimer: ABG POC ABG pH 7.423 (7.35-7.45) 11/20/18 04:06 ABG pH 7.247 pH Units (7.350-7.450) L 11/16/18 05:10 POC ABG pCO2 55.6 (35-45) H 11/20/18 04:06 ABG pCO2 64.0 mm Hg 11/16/18 05:10 POC ABG pO2 66 (80-105) L 11/20/18 04:06 ABG pO2 65.7 mm Hg (80.0-90.0) L 11/16/18 05:10 POC ABG HCO3 36.3 (22-26 mml/L) 11/20/18 04:06 POC ABG Total CO2 38 (23-27mmol/L) 11/20/18 04:06 POC ABG O2 Sat 92 11/20/18 04:06 ABG O2 Saturation 89.9 % (95.0-99.0) L 11/16/18 05:10 PT/INR, D-dimer PT 14.1 Sec. (12.2-14.9) 11/14/18 19:39 INR 1.12 (0.87-1.13) 11/14/18 19:39 Abnormal lab findings: Abnormal Labs 11/14/18 11/14/18 11/14/18 18:59 19:39 19:39 WBC RBC 5.30 H MCV MCH 23 L MCHC 29 L RDW 20.5 H Plt Count 132 L Lymph % (Auto) 7.2 L Lymph # 0.6 L Seg Neutrophils % 87.1 H Seg Neuts % (Manual) Lymphocytes % (Manual) Seg Neutrophils # Man Lymphocytes # (Manual) POC ABG pH ABG pH POC ABG pCO2 POC ABG pO2 ABG pO2 ABG HCO3 ABG O2 Saturation ABG Base Excess ABG Hemoglobin ABG Carboxyhemoglobin Oxyhemoglobin Sodium 147 H Potassium Chloride Carbon Dioxide 35 H BUN Creatinine 0.4 L Glucose 121 H POC Glucose 129 H Calcium ALT 6 L Total Protein 6.2 L Albumin 3.4 L 11/14/18 11/15/18 11/15/18 20:45 04:20 04:20 WBC RBC 5.36 H MCV 78 L MCH 22 L MCHC 28 L RDW 20.5 H Plt Count 124 L Lymph % (Auto) Lymph # Seg Neutrophils % Seg Neuts % (Manual) 92.0 H Lymphocytes % (Manual) 6.0 L Seg Neutrophils # Man Lymphocytes # (Manual) 0.4 L POC ABG pH ABG pH 7.346 L POC ABG pCO2 POC ABG pO2 ABG pO2 ABG HCO3 32.4 H ABG O2 Saturation ABG Base Excess 5.3 H ABG Hemoglobin 11.0 L ABG Carboxyhemoglobin 6.4 H Oxyhemoglobin 90.0 L Sodium 146 H Potassium Chloride 107.6 H Carbon Dioxide BUN Creatinine 0.4 L Glucose 132 H POC Glucose Calcium 8.1 L ALT Total Protein Albumin 11/15/18 11/15/18 11/15/18 06:18 12:36 18:06 WBC RBC MCV MCH MCHC RDW Plt Count Lymph % (Auto) Lymph # Seg Neutrophils % Seg Neuts % (Manual) Lymphocytes % (Manual) Seg Neutrophils # Man Lymphocytes # (Manual) POC ABG pH 7.291 L ABG pH POC ABG pCO2 65.4 H POC ABG pO2 65 L ABG pO2 ABG HCO3 ABG O2 Saturation ABG Base Excess ABG Hemoglobin ABG Carboxyhemoglobin Oxyhemoglobin Sodium Potassium Chloride Carbon Dioxide BUN Creatinine Glucose POC Glucose 149 H 171 H Calcium ALT Total Protein Albumin 11/15/18 11/16/18 11/16/18 23:42 00:11 00:11 WBC 11.2 H RBC MCV 77 L MCH 22 L MCHC 28 L RDW 21.3 H Plt Count 136 L Lymph % (Auto) Lymph # Seg Neutrophils % Seg Neuts % (Manual) 89.0 H Lymphocytes % (Manual) 6.0 L Seg Neutrophils # Man 10.0 H Lymphocytes # (Manual) 0.7 L POC ABG pH ABG pH POC ABG pCO2 POC ABG pO2 ABG pO2 ABG HCO3 ABG O2 Saturation ABG Base Excess ABG Hemoglobin ABG Carboxyhemoglobin Oxyhemoglobin Sodium Potassium 5.4 H D Chloride 109.5 H Carbon Dioxide BUN 18 H Creatinine 0.5 L Glucose 118 H POC Glucose 134 H Calcium ALT Total Protein Albumin 11/16/18 11/16/18 11/16/18 05:10 06:55 12:22 WBC RBC MCV MCH MCHC RDW Plt Count Lymph % (Auto) Lymph # Seg Neutrophils % Seg Neuts % (Manual) Lymphocytes % (Manual) Seg Neutrophils # Man Lymphocytes # (Manual) POC ABG pH ABG pH 7.247 L POC ABG pCO2 POC ABG pO2 ABG pO2 65.7 L ABG HCO3 27.3 H ABG O2 Saturation 89.9 L ABG Base Excess ABG Hemoglobin 10.5 L ABG Carboxyhemoglobin Oxyhemoglobin 87.9 L Sodium Potassium Chloride Carbon Dioxide BUN Creatinine Glucose POC Glucose 116 H 106 H Calcium ALT Total Protein Albumin 11/16/18 11/17/18 11/17/18 18:04 04:56 09:26 WBC 15.1 H RBC MCV 77 L MCH 22 L MCHC 28 L RDW 20.4 H Plt Count 134 L Lymph % (Auto) Lymph # Seg Neutrophils % Seg Neuts % (Manual) Lymphocytes % (Manual) Seg Neutrophils # Man Lymphocytes # (Manual) POC ABG pH 7.335 L ABG pH POC ABG pCO2 58.2 H POC ABG pO2 74 L ABG pO2 ABG HCO3 ABG O2 Saturation ABG Base Excess ABG Hemoglobin ABG Carboxyhemoglobin Oxyhemoglobin Sodium Potassium Chloride Carbon Dioxide BUN Creatinine Glucose POC Glucose 117 H Calcium ALT Total Protein Albumin 11/17/18 11/17/18 11/17/18 09:26 18:03 23:49 WBC RBC MCV MCH MCHC RDW Plt Count Lymph % (Auto) Lymph # Seg Neutrophils % Seg Neuts % (Manual) Lymphocytes % (Manual) Seg Neutrophils # Man Lymphocytes # (Manual) POC ABG pH ABG pH POC ABG pCO2 POC ABG pO2 ABG pO2 ABG HCO3 ABG O2 Saturation ABG Base Excess ABG Hemoglobin ABG Carboxyhemoglobin Oxyhemoglobin Sodium 149 H Potassium Chloride 109.0 H Carbon Dioxide BUN 22 H Creatinine 0.4 L Glucose POC Glucose 128 H 129 H Calcium ALT Total Protein Albumin 11/18/18 11/18/18 11/18/18 04:00 06:15 09:35 WBC RBC MCV 76 L MCH 22 L MCHC 29 L RDW 20.3 H Plt Count 111 L Lymph % (Auto) Lymph # Seg Neutrophils % Seg Neuts % (Manual) Lymphocytes % (Manual) Seg Neutrophils # Man Lymphocytes # (Manual) POC ABG pH ABG pH POC ABG pCO2 54.2 H POC ABG pO2 62 L ABG pO2 ABG HCO3 ABG O2 Saturation ABG Base Excess ABG Hemoglobin ABG Carboxyhemoglobin Oxyhemoglobin Sodium Potassium Chloride Carbon Dioxide BUN Creatinine Glucose POC Glucose 144 H Calcium ALT Total Protein Albumin 11/18/18 11/18/18 11/18/18 09:35 12:23 18:21 WBC RBC MCV MCH MCHC RDW Plt Count Lymph % (Auto) Lymph # Seg Neutrophils % Seg Neuts % (Manual) Lymphocytes % (Manual) Seg Neutrophils # Man Lymphocytes # (Manual) POC ABG pH ABG pH POC ABG pCO2 POC ABG pO2 ABG pO2 ABG HCO3 ABG O2 Saturation ABG Base Excess ABG Hemoglobin ABG Carboxyhemoglobin Oxyhemoglobin Sodium 149 H Potassium Chloride 109.5 H Carbon Dioxide 31 H BUN 20 H Creatinine 0.4 L Glucose 137 H POC Glucose 140 H 160 H Calcium ALT Total Protein Albumin 11/18/18 11/19/18 11/19/18 23:55 04:12 05:41 WBC RBC MCV MCH MCHC RDW Plt Count Lymph % (Auto) Lymph # Seg Neutrophils % Seg Neuts % (Manual) Lymphocytes % (Manual) Seg Neutrophils # Man Lymphocytes # (Manual) POC ABG pH 7.345 L ABG pH POC ABG pCO2 64.9 H POC ABG pO2 69 L ABG pO2 ABG HCO3 ABG O2 Saturation ABG Base Excess ABG Hemoglobin ABG Carboxyhemoglobin Oxyhemoglobin Sodium Potassium Chloride Carbon Dioxide BUN Creatinine Glucose POC Glucose 151 H 145 H Calcium ALT Total Protein Albumin 11/19/18 11/19/18 11/19/18 09:25 11:25 17:55 WBC RBC MCV MCH MCHC RDW Plt Count Lymph % (Auto) Lymph # Seg Neutrophils % Seg Neuts % (Manual) Lymphocytes % (Manual) Seg Neutrophils # Man Lymphocytes # (Manual) POC ABG pH 7.346 L ABG pH POC ABG pCO2 65.3 H POC ABG pO2 71 L ABG pO2 ABG HCO3 ABG O2 Saturation ABG Base Excess ABG Hemoglobin ABG Carboxyhemoglobin Oxyhemoglobin Sodium 150 H Potassium Chloride 109.4 H Carbon Dioxide 32 H BUN 21 H Creatinine 0.3 L Glucose 149 H POC Glucose 160 H Calcium ALT Total Protein Albumin 11/19/18 11/19/18 11/20/18 17:58 23:15 04:06 WBC RBC MCV MCH MCHC RDW Plt Count Lymph % (Auto) Lymph # Seg Neutrophils % Seg Neuts % (Manual) Lymphocytes % (Manual) Seg Neutrophils # Man Lymphocytes # (Manual) POC ABG pH ABG pH POC ABG pCO2 55.6 H POC ABG pO2 66 L ABG pO2 ABG HCO3 ABG O2 Saturation ABG Base Excess ABG Hemoglobin ABG Carboxyhemoglobin Oxyhemoglobin Sodium Potassium Chloride Carbon Dioxide BUN Creatinine Glucose POC Glucose 171 H 156 H Calcium ALT Total Protein Albumin 11/20/18 11/20/18 11/20/18 04:39 04:39 05:14 WBC 12.0 H RBC MCV 76 L MCH 22 L MCHC 29 L RDW 19.7 H Plt Count 80 L Lymph % (Auto) Lymph # Seg Neutrophils % Seg Neuts % (Manual) Lymphocytes % (Manual) Seg Neutrophils # Man Lymphocytes # (Manual) POC ABG pH ABG pH POC ABG pCO2 POC ABG pO2 ABG pO2 ABG HCO3 ABG O2 Saturation ABG Base Excess ABG Hemoglobin ABG Carboxyhemoglobin Oxyhemoglobin Sodium 151 H Potassium Chloride 109.0 H Carbon Dioxide 33 H BUN 18 H Creatinine 0.3 L Glucose 146 H POC Glucose 137 H Calcium ALT Total Protein Albumin 11/20/18 12:28 WBC RBC MCV MCH MCHC RDW Plt Count Lymph % (Auto) Lymph # Seg Neutrophils % Seg Neuts % (Manual) Lymphocytes % (Manual) Seg Neutrophils # Man Lymphocytes # (Manual) POC ABG pH ABG pH POC ABG pCO2 POC ABG pO2 ABG pO2 ABG HCO3 ABG O2 Saturation ABG Base Excess ABG Hemoglobin ABG Carboxyhemoglobin Oxyhemoglobin Sodium Potassium Chloride Carbon Dioxide BUN Creatinine Glucose POC Glucose 162 H Calcium ALT Total Protein Albumin Allied health notes reviewed: nursing
[2018-11-20] MEDS ORDERED: QUEtiapine 25 MG TAB PO SCH (13:17)
[2018-11-20] MEDS: INSULIN LISPRO 100 UNIT/ML SUB-Q SCH (23:37)
[2018-11-21 05:34] LABS: Eosinophils % (Auto) 0.1 % (0.0-4.3); Monocytes # (Auto) 0.5 K/mm3 (0.0-0.8); Monocytes % (Auto) 7.1 % (0.0-7.3)
[2018-11-21] MEDS: MEROPENEM/NS 1 GRAM/100 ML 1 GRAM/100 ML BAG IV SCH (05:35)
[2018-11-21] MEDS: methylPREDNISolone Sod Succinate 125 MG/2 ML INJ IV SCH ×3 (05:35→21:00)
[2018-11-21] MEDS: INSULIN LISPRO 100 UNIT/ML SUB-Q SCH ×4 (05:36→23:45)
[2018-11-21 05:48] LABS: BUN/Creatinine Ratio 90; Blood Urea Nitrogen 18 mg/dL (7-17); Calcium 8.5 mg/dL (8.4-10.2); Hemolysis Index 32
[2018-11-21 05:53] LABS: Basophils % (Auto) 0.1 % (0.0-1.8); Lymphocytes # (Auto) 0.4 K/mm3 (1.2-5.4); Lymphocytes % (Auto) 4.8 % (13.4-35.0); Mean Corpuscular HGB Conc 30 % (30-34); Mean Corpuscular Volume 75 fl (79-97); Red Blood Count 4.74 M/mm3 (3.65-5.03)
[2018-11-21 06:10] LABS: Hemoglobin 10.6 gm/dl (10.1-14.3)
[2018-11-21 06:11] LABS: Hematocrit 35.6 % (30.3-42.9); Red Cell Distribution Width 20.2 % (13.2-15.2)
--- NOTE | 2018-11-21 07:20 | XRay Report ---
CHEST 1 VIEW INDICATION / CLINICAL INFORMATION: follow up respiratory failure. COMPARISON: 11/20/2018 FINDINGS: SUPPORT DEVICES: Support devices remain in stable and satisfactory position. Visualization is somewha t limited by extensive orthopedic hardware within the thoracic spine. HEART / MEDIASTINUM: No significant abnormality. LUNGS / PLEURA: There continues to be left lower lobe pleural-parenchymal disease not appreciably latrice nged. Mild right basilar atelectasis is noted. Mild interstitial pulmonary edema is present. No large pleural effusion. No pneumothorax. ADDITIONAL FINDINGS: No significant additional findings. IMPRESSION: Mild interstitial pulmonary edema may be minimally worse. No other significant interval change. Signer Name: Shanique Crowley MD Signed: 11/21/2018 7:15 AM Workstation Name: [id number]
--- NOTE | 2018-11-21 07:36 | Progress Note ---
Assessment and Plan Assessment and plan: --Acute on chronic combined respiratory failure requiring intubation: Respiratory failure appears to be secondary to acute COPD exacerbationn.; She was currently intubated sedated pulmonology following,wean as tolerated and extubate cont antibiotics per ID. Nebulizes when indicated. --End-stage COPD; with chronic hypoxia treat with iv steriods continue taper, abx, nebs around the clock -- Sepsis, due to PNA cont linezolid, per ID --Hypernatremia, improved cont free water with TF, Follow sodium levels --Malignant HTN (hypertension).; Well controlled Probably secondary to agitation, Ativan when necessary IV hydralazine when necessary --Sinus tachycardia; probably secondary to agitation Started Ativan when necessary, consider low dose beta blockers If no improvemen --Nicotine dependence Continue nicotine patch when necessary. --Thrombocytopenia Remains below 100, stable no active bleeding. Hematology following --DVt Px; SCDs No pharmacologic anticoagulation in view of thrombocytopenia --Full code Continue current inpatient ICU management Consults and recommendations noted and appreciated Plan of care is reviewed in detail with the patient's sister Addressed all her questions and concerns The high probability of a clinically significant, sudden or life threatening deterioration of the [multiple] system(s) required my full and direct attention, intervention and personal management. The aggregate critical care time was [33] minutes. This time is in addition to time spent performing reported procedures but includes the following: [x] Data Review and interpretation [x] Patient assessment and monitoring of vital signs [x] Documentation [x] Medication orders and management History Interval history: Patient seen and examined medical records reviewed no new overnight events reported by the nursing Remains intubated on ventilatory support Not in acute distress Vital signs noted Hospitalist Physical - Constitutional Vitals: Temp Pulse Resp BP Pulse Ox 98.7 F 113 H 19 118/72 94 11/21/18 03:36 11/21/18 06:15 11/21/18 06:15 11/21/18 06:15 11/21/18 06:15 General appearance: Present: no acute distress, disheveled, other (intubated on vent , sedated ) - EENT Eyes: Present: PERRL, EOM intact - Neck Neck: Present: supple, normal ROM - Respiratory Respiratory effort: normal Respiratory: bilateral: diminished, rhonchi, negative: rales, wheezing - Cardiovascular Rhythm: regular Heart Sounds: Present: S1 & S2 - Extremities Extremities: no ischemia Extremity abnormal: erythema (ecchymosis upper extremities) - Abdominal General gastrointestinal: soft, non-tender, non-distended, normal bowel sounds - Integumentary Integumentary: Present: clear - Psychiatric Psychiatric: other (noncommunicative/on event) - Neurologic Neurologic: other (on vent) Results - Labs CBC & Chem 7: 11/21/18 04:38 11/21/18 04:38 Labs: Laboratory Last Values WBC 7.8 K/mm3 (4.5-11.0) 11/21/18 04:38 RBC 4.74 M/mm3 (3.65-5.03) 11/21/18 04:38 Hgb 10.6 gm/dl (10.1-14.3) 11/21/18 04:38 Hct 35.6 % (30.3-42.9) 11/21/18 04:38 MCV 75 fl (79-97) L 11/21/18 04:38 MCH 22 pg (28-32) L 11/21/18 04:38 MCHC 30 % (30-34) 11/21/18 04:38 RDW 20.2 % (13.2-15.2) H 11/21/18 04:38 Plt Count 80 K/mm3 (140-440) L 11/20/18 04:39 Lymph % (Auto) 4.8 % (13.4-35.0) L 11/21/18 04:38 [place] % (Auto) 7.1 % (0.0-7.3) 11/21/18 04:38 Eos % (Auto) 0.1 % (0.0-4.3) 11/21/18 04:38 Baso % (Auto) 0.1 % (0.0-1.8) 11/21/18 04:38 Lymph # 0.4 K/mm3 (1.2-5.4) L 11/21/18 04:38 Ramsey # 0.5 K/mm3 (0.0-0.8) 11/21/18 04:38 Eos # 0.0 K/mm3 (0.0-0.4) 11/21/18 04:38 Baso # 0.0 K/mm3 (0.0-0.1) 11/21/18 04:38 Add Manual Diff Complete 11/16/18 00:11 Total Counted 100 11/16/18 00:11 Seg Neutrophils % 87.5 % (40.0-70.0) H 11/21/18 04:38 Seg Neuts % (Manual) 89.0 % (40.0-70.0) H 11/16/18 00:11 Band Neutrophils % 0 % 11/16/18 00:11 Lymphocytes % (Manual) 6.0 % (13.4-35.0) L 11/16/18 00:11 Reactive Lymphs % (Man) 0 % 11/16/18 00:11 Monocytes % (Manual) 5.0 % (0.0-7.3) 11/16/18 00:11 Eosinophils % (Manual) 0 % (0.0-4.3) 11/16/18 00:11 Basophils % (Manual) 0 % (0.0-1.8) 11/16/18 00:11 Metamyelocytes % 0 % 11/16/18 00:11 Myelocytes % 0 % 11/16/18 00:11 Promyelocytes % 0 % 11/16/18 00:11 Blast Cells % 0 % 11/16/18 00:11 Nucleated RBC % Not Reportable 11/16/18 00:11 Seg Neutrophils # 6.7 K/mm3 (1.8-7.7) 11/21/18 04:38 Seg Neutrophils # Man 10.0 K/mm3 (1.8-7.7) H 11/16/18 00:11 Band Neutrophils # 0.0 K/mm3 11/16/18 00:11 Lymphocytes # (Manual) 0.7 K/mm3 (1.2-5.4) L 11/16/18 00:11 Abs React Lymphs (Man) 0.0 K/mm3 11/16/18 00:11 Monocytes # (Manual) 0.6 K/mm3 (0.0-0.8) 11/16/18 00:11 Eosinophils # (Manual) 0.0 K/mm3 (0.0-0.4) 11/16/18 00:11 Basophils # (Manual) 0.0 K/mm3 (0.0-0.1) 11/16/18 00:11 Metamyelocytes # 0.0 K/mm3 11/16/18 00:11 Myelocytes # 0.0 K/mm3 11/16/18 00:11 Promyelocytes # 0.0 K/mm3 11/16/18 00:11 Blast Cells # 0.0 K/mm3 11/16/18 00:11 WBC Morphology Not Reportable 11/16/18 00:11 Hypersegmented Neuts Not Reportable 11/16/18 00:11 Hyposegmented Neuts Not Reportable 11/16/18 00:11 Hypogranular Neuts Not Reportable 11/16/18 00:11 Smudge Cells Not Reportable 11/16/18 00:11 Toxic Granulation Not Reportable 11/16/18 00:11 Toxic Vacuolation Not Reportable 11/16/18 00:11 Dohle Bodies Not Reportable 11/16/18 00:11 Pelger-Huet Anomaly Not Reportable 11/16/18 00:11 Neha Rods Not Reportable 11/16/18 00:11 Platelet Estimate Not Reportable 11/16/18 00:11 Clumped Platelets Not Reportable 11/16/18 00:11 Plt Clumps, EDTA Not Reportable 11/16/18 00:11 Large Platelets Not Reportable 11/16/18 00:11 Giant Platelets 1+ 11/16/18 00:11 Platelet Satelliting Not Reportable 11/16/18 00:11 Plt Morphology Comment Not Reportable 11/16/18 00:11 RBC Morphology Not Reportable 11/16/18 00:11 Dimorphic RBCs Not Reportable 11/16/18 00:11 Polychromasia Not Reportable 11/16/18 00:11 Hypochromasia 2+ 11/16/18 00:11 Poikilocytosis Not Reportable 11/16/18 00:11 Anisocytosis 1+ 11/16/18 00:11 Microcytosis Not Reportable 11/16/18 00:11 Macrocytosis Not Reportable 11/16/18 00:11 Spherocytes Not Reportable 11/16/18 00:11 Pappenheimer Bodies Not Reportable 11/16/18 00:11 Sickle Cells Not Reportable 11/16/18 00:11 Target Cells Not Reportable 11/16/18 00:11 Tear Drop Cells Not Reportable 11/16/18 00:11 Ovalocytes Not Reportable 11/16/18 00:11 Helmet Cells Not Reportable 11/16/18 00:11 Benoit-Mendenhall Bodies Not Reportable 11/16/18 00:11 [place] Rings Not Reportable 11/16/18 00:11 Damien Cells Not Reportable 11/16/18 00:11 Bite Cells Not Reportable 11/16/18 00:11 Crenated Cell Not Reportable 11/16/18 00:11 Elliptocytes Not Reportable 11/16/18 00:11 Acanthocytes (Spur) Not Reportable 11/16/18 00:11 Rouleaux Not Reportable 11/16/18 00:11 Hemoglobin C Crystals Not Reportable 11/16/18 00:11 Schistocytes Not Reportable 11/16/18 00:11 Malaria parasites Not Reportable 11/16/18 00:11 Hernan Bodies Not Reportable 11/16/18 00:11 Hem Pathologist Commnt No 11/16/18 00:11 PT 14.1 Sec. (12.2-14.9) 11/14/18 19:39 INR 1.12 (0.87-1.13) 11/14/18 19:39 POC ABG pH 7.423 (7.35-7.45) 11/20/18 04:06 ABG pH 7.247 pH Units (7.350-7.450) L 11/16/18 05:10 POC ABG pCO2 55.6 (35-45) H 11/20/18 04:06 ABG pCO2 64.0 mm Hg 11/16/18 05:10 POC ABG pO2 66 (80-105) L 11/20/18 04:06 ABG pO2 65.7 mm Hg (80.0-90.0) L 11/16/18 05:10 POC ABG HCO3 36.3 (22-26 mml/L) 11/20/18 04:06 ABG HCO3 27.3 mmol/L (20.0-26.0) H 11/16/18 05:10 POC ABG Total CO2 38 (23-27mmol/L) 11/20/18 04:06 POC ABG O2 Sat 92 11/20/18 04:06 ABG O2 Saturation 89.9 % (95.0-99.0) L 11/16/18 05:10 ABG O2 Content 13.0 (0.0-44) 11/16/18 05:10 POC ABG Base Excess 12 ((-2) - (+3)mmol/L) 11/20/18 04:06 ABG Base Excess -0.9 mmol/L (-2.0-3.0) 11/16/18 05:10 ABG Hemoglobin 10.5 gm/dl (12.0-16.0) L 11/16/18 05:10 ABG Carboxyhemoglobin 1.7 % (0.0-5.0) 11/16/18 05:10 ABG Methemoglobin 0.5 % (0.0-1.5) 11/16/18 05:10 Oxyhemoglobin 87.9 % (95.0-99.0) L 11/16/18 05:10 FiO2 50 % 11/20/18 04:06 Sodium 145 mmol/L (137-145) 11/21/18 04:38 Potassium 4.6 mmol/L (3.6-5.0) 11/21/18 04:38 Chloride 104.0 mmol/L (98-107) 11/21/18 04:38 Carbon Dioxide 34 mmol/L (22-30) H 11/21/18 04:38 Anion Gap 12 mmol/L 11/21/18 04:38 BUN 18 mg/dL (7-17) H 11/21/18 04:38 Creatinine 0.2 mg/dL (0.7-1.2) L 11/21/18 04:38 Estimated GFR > 60 ml/min 11/21/18 04:38 BUN/Creatinine Ratio 90 % 11/21/18 04:38 Glucose 163 mg/dL (65-100) H 11/21/18 04:38 POC Glucose 171 (70-105) H 11/21/18 05:27 Lactic Acid 1.00 mmol/L (0.7-2.0) 11/19/18 15:47 Calcium 8.5 mg/dL (8.4-10.2) 11/21/18 04:38 Magnesium 2.20 mg/dL (1.7-2.3) 11/21/18 04:38 Total Bilirubin 0.20 mg/dL (0.1-1.2) 11/14/18 19:39 AST 13 units/L (5-40) 11/14/18 19:39 ALT 6 units/L (7-56) L 11/14/18 19:39 Alkaline Phosphatase 85 units/L (35-129) 11/14/18 19:39 Troponin T < 0.010 ng/mL (0.00-0.029) 11/15/18 04:20 C-Reactive Protein 0.00 mg/dL (0.00-1.30) 11/19/18 15:47 Total Protein 6.2 g/dL (6.3-8.2) L 11/14/18 19:39 Albumin 3.4 g/dL (3.9-5) L 11/14/18 19:39 Albumin/Globulin Ratio 1.2 % 11/14/18 19:39 Urine Color Yellow (Yellow) 11/14/18 20:29 Urine Turbidity Clear (Clear) 11/14/18 20:29 Urine pH 5.0 (5.0-7.0) 11/14/18 20:29 Ur Specific [place] 1.026 (1.003-1.030) 11/14/18 20:29 Urine Protein 100 mg/dl mg/dL (Negative) 11/14/18 20:29 Urine Glucose (UA) Neg mg/dL (Negative) 11/14/18 20:29 Urine Ketones Neg mg/dL (Negative) 11/14/18 20:29 Urine Blood Sm (Negative) 11/14/18 20:29 Urine Nitrite Neg (Negative) 11/14/18 20:29 Urine Bilirubin Neg (Negative) 11/14/18 20:29 Urine Urobilinogen < 2.0 mg/dL (<2.0) 11/14/18 20:29 Ur Leukocyte Esterase Neg (Negative) 11/14/18 20:29 Urine WBC (Auto) 6.0 /HPF (0.0-6.0) 11/14/18 20:29 Urine RBC (Auto) 16.0 /HPF (0.0-6.0) 11/14/18 20: U Epithel Cells (Auto) 1.0 /HPF (0-13.0) 11/14/18 20:29 Urine Bacteria (Auto) 1+ /HPF (Negative) 11/14/18 20:29 Hyaline Casts 36 /LPF 11/14/18 20:29 Urine Mucus 1+ /HPF 11/14/18 20:29 Vancomycin Trough 12.1 ug/mL (5.0-20.0) 11/19/18 09:25 Active Medications - Current Medications Current Medications: Generic Name Dose Route Start Last Admin Trade Name Freq PRN Reason Stop Dose Admin Acetaminophen 650 mg 11/14/18 22:11 11/19/18 12:00 Tylenol PO 650 mg Q4H PRN Administration Pain MILD(1-3)/Fever >100.5/PRAJAPATI Albuterol 2.5 mg 11/19/18 13:00 Proventil IH Q4HRT PRN Shortness Of Breath Lipase/Protease/Amylase 1 each 11/16/18 12:29 11/18/18 08:15 Chicho Pereira 10,500 Unit FEEDTUBE 1 each PRN PRN Administration For Clogged Feeding Tube Lipase/Protease/Amylase 1 each 11/20/18 01:46 Chicho Pereira 10,500 Unit FEEDTUBE PRN PRN For Clogged Feeding Tube Arformoterol Tartrate 15 mcg 11/19/18 20:00 11/20/18 20:14 Brovana Nebu IH 15 mcg Q12HRT DOMINICK Administration Baclofen 10 mg 11/16/18 11:00 11/20/18 21:00 Lioresal PO 10 mg BID DOMINICK Administration Budesonide 0.5 mg 11/19/18 20:00 11/20/18 20:14 Pulmicort IH 0.5 mg Q12HRT DOMINICK Administration Famotidine 20 mg 11/16/18 10:00 11/20/18 21:00 Pepcid PO 20 mg BID DOMINICK Administration Fentanyl 50 mcg 11/14/18 19:14 11/20/18 05:19 Sublimaze IV 50 mcg Q10MIN PRN Administration ANALGESIA Hydralazine HCl 10 mg 11/20/18 08:30 Apresoline IV Q4HR PRN Hypertension Hydrophilic Ointment 1 applic 11/14/18 19:14 Vaseline Lip Therapy TP Q2HR PRN Dry Lips Fentanyl Citrate 2,000 mcg in 100 mls @ 3.629 mls/hr 11/14/18 20:00 11/20/18 16:45 Fentanyl Drip Premix IV Infused TITR DOMINICK Titration Protocol 1 MCG/KG/HR Vancomycin HCl 1,500 mg/ 530 mls @ 333.333 mls/hr 11/17/18 10:00 11/20/18 21: 10 Sodium Chloride IV 333.333 mls/hr Q12H DOMINICK Administration MEROPENEM/NS 1 GRAM/100 ML 1 gram in 100 mls @ 100 mls/hr 11/18/18 16:00 11/21/18 05:35 Merrem/Ns 1 Gram/100 Ml IV 100 mls/hr Q8HR DOMINICK Administration Insulin Human Lispro 0 unit 11/21/18 00:00 11/21/18 05:36 Humalog SUB-Q 2 unit Q6HR DOMINICK Administration Protocol Lorazepam 1 mg 11/20/18 08:15 11/20/18 19:09 Ativan IV 1 mg Q4HR PRN Administration Agitation Methylprednisolone Sodium Succinate 60 mg 11/15/18 22:00 11/21/18 05:35 Solu-Medrol IV 60 mg Q8HR DOMINICK Administration Multi-Ingred Cream/Lotion/Oil/Oint 1 applic 11/14/18 19:14 Artificial Tears Ophth Oint OU Q4HR PRN Dry Eye(s) Nicotine 14 mg 11/15/18 16:00 11/20/18 09:24 Habitrol TD 14 mg QDAY DOMINICK Administration Ondansetron HCl 4 mg 11/14/18 22:11 Zofran IV Q8H PRN Nausea And Vomiting Quetiapine Fumarate 300 mg 11/20/18 13:17 11/20/18 21:00 Seroquel PO 300 mg BID DOMINICK Administration Simple Syrup 15 ml 11/16/18 12:29 Simple Syrup FEEDTUBE PRN PRN Hypoglycemia Simple Syrup 30 ml 11/16/18 12:29 Simple Syrup FEEDTUBE PRN PRN Hypoglycemia Simple Syrup 15 ml 11/20/18 01:46 Simple Syrup FEEDTUBE PRN PRN Hypoglycemia Simple Syrup 30 ml 11/20/18 01:46 Simple Syrup FEEDTUBE PRN PRN Hypoglycemia Sodium Bicarbonate 325 mg 11/16/18 12:29 11/18/18 08:15 Sodium Bicarbonate FEEDTUBE 325 mg PRN PRN Administration For Clogged Feeding Tube Sodium Bicarbonate 325 mg 11/20/18 01:46 Sodium Bicarbonate FEEDTUBE PRN PRN For Clogged Feeding Tube Sodium Chloride 10 ml 11/15/18 10:00 11/20/18 21:14 Sodium Chloride Flush Syringe 10 Ml IV 10 ml BID DOMINICK Administration Sodium Chloride 10 ml 11/14/18 22:11 11/21/18 05:38 Sodium Chloride Flush Syringe 10 Ml IV 10 ml PRN PRN Administration LINE FLUSH Tamsulosin HCl 0.4 mg 11/19/18 13:00 11/20/18 09:25 Flomax PO 0.4 mg QDAY DOMINICK Administration Venlafaxine HCl 100 mg 11/16/18 14:00 11/20/18 21:00 Effexor PO 100 mg TID DOMINICK Administration Nutrition/Malnutrition Assess - Dietary Evaluation Nutrition/Malnutrition Findings: Nutrition Notes Start: 11/16/18 08:00 Freq: Status: Active Protocol: Document 11/20/18 12:43 NASRA (Rec: 11/20/18 13:47 NASRA [email or web address]) Co-Sign 11/20/18 12:43 LP Nutrition Notes Initial or Follow up Reassessment Current Diagnosis COPD,Coronary Artery Disease, Hypertension Other Pertinent Diagnosis Nicotine dependence Current Diet Vital AF 1.2 at 55ml/hr Labs/Tests Na 151 Cl 109 CO2 33 BUN 18 Cr 0.3 Gluc 146 Pertinent Medications Solumedrol Height 5 ft 2 in Weight 75.9 kg [place] Body Weight (kg) 50.00 BMI 30.6 Subjective/Other Information TF running at goal. Per RN pt is tolerating TF Percent of energy/protein needs met: 100%/99% Burn Absent Trauma Absent Minimum of two criteria No #1 Nutrition Diagnosis Inadequate oral intake Diagnosis Progress(for reassessment Continues documentation) Is patient on ventilator? Yes Is Patient Ambulatory and/or Out of Bed No REE-([facility]-confined to bed) [phone] Calculation Used for Recommendations [facility] Additional Notes Protein: 100g (>2g/kg IBW 50kg ) Fluid: 1ml/kcal Nutrition Intervention Change Diet Order: Continue current Nutrition Support: Vital AF 1.2 at 55 ml/hr Increase water flush 200 ml q4hr for hypernatremia Kcal 1,584 Protein (gm) 99 Fluid (mL) 1,071 Goal #1 Meet at least 75% energy and protein needs Anticipated Discharge Needs: Unable to determine at this time Follow-Up By: 11/25/18 Additional Comments F/U for TF rate
[2018-11-21 08:25] LABS: Platelet Count 82 K/mm3 (140-440)
[2018-11-21] MEDS: BUDESONIDE 0.5 MG/2 ML NEBU IH SCH ×2 (08:38→20:21)
[2018-11-21] MEDS: ARFORMOTEROL 15 MCG/2 ML NEBU IH SCH ×2 (08:38→20:21)
[2018-11-21] MEDS: VENLAFAXINE 25 MG TAB PO SCH ×3 (09:30→21:02)
[2018-11-21] MEDS: LINEZOLID 600 MG/300 ML BAG IV SCH ×2 (09:30→21:01)
[2018-11-21] MEDS: QUEtiapine 100 MG TAB PO SCH ×2 (09:31→21:03)
[2018-11-21] MEDS: BACLOFEN 10 MG TAB PO SCH ×2 (09:31→21:02)
[2018-11-21] MEDS: TAMSULOSIN 0.4 MG CAP PO SCH (09:31)
[2018-11-21] MEDS: NICOTINE 14 MG/24 HR PATCH TD SCH (09:31)
[2018-11-21] MEDS: FAMOTIDINE 20 MG TAB PO SCH ×2 (09:31→21:00)
--- NOTE | 2018-11-21 13:57 | Progress Note ---
Assessment and Plan Acute and chronic hypoxic-hypercapnic respiratory failure AE-COPD Tobacco use disorder/Nicotine dependence( on going) Hypernatremia History of HTN, hypotensive at presentation Chronic narcotic dependence Chronic back pain Anxiety disorder - lasix 20 mg IV X 1 - continue Seroquel at current dose - get ABG on PSV; reduce P-supp if pH acceptable - follow dopplers of lower extremity result's - Daily SAT and SBT as tolerated - VAP bundle addressed - Lung protective strategies - Oxygen restrictive strategies (PaO2 of 60 with O2 sats 88-90% is acceptable) - continue bronchodilators with pulmonary hygiene per RT - continue trial of flomax re: urinary retention - pull nunez in 24-48 hours hopefully - continue Brovana and pulmicort re: severe COPD - increase TV to 450 ml's - reduce set rate to 12/min - repeat ABG at 6pm - get lactate and CRP levels to aid clinical decision making - Stop benzodiazepine's, reduce the possibility of delirium - Continue with fentanyl, titrate for RASS of 0 to -1 - Maintenance of sleep-wake cycle, avoid delirium - continue enteral nutritional support at goal rate as tolerated - Accuchecks with glycemic control - While critically ill target blood glucose of 140-180 mg/dL; avoid hypoglycemic - VTE prophylaxis(enoxaparin) - Stress ulcer prophylaxis( Famotidine) - continue systemic Steroids - Empiric Antibiotics ; de-escalate per ID rec's - Monitor hemodynamics closely - Avoid delirium - Nicotine withdrawal precautions, nicotine patch - continue other care per attending / other workforce consultant's ... care plan discussed with Sister in room; She states she is off tobacco for a few months now .... re-evaluate in am & prn CONDITION: CRITICAL PROGNOSIS: GUARDED CODE STATUS: FULL CODE In view of ongoing smoking, recurrent hospital admission, will need to re-add ress advance directives and goals of care, once the patient is able to be a part of that discussion. Will also address smoking cessation again, once she is able to be a part of that discussion The high probability of a clinically significant, sudden or life-threatening deterioration of the respiratory, cardiovascular, neurology, endocrine system(s) required my full and direct attention, intervention and personal management. The aggregate critical care time was [35] minutes without overlap. Time includes spent on; [x] Data Review and interpretation [x] Patient assessment and monitoring of vital signs [x] Documentation [x] Medication orders and management Subjective Date of service: 11/21/18 Principal diagnosis: Ac and ch hypoxic hypercapnic resp failure; AE-COPD; Tobacco use disorder Interval history: Patient is seen today for: Ac and ch hypoxic hypercapnic resp failure; AE-COPD; Tobacco use disorder/Nicotine dependence; Hypernatremia; HTN (hypotensive at presentation 0; Chronic narcotic dependence ; Chronic back pain; Anxiety disor shadi Seen and examined at bedside; 24-hour events reviewed; nursing and respiratory care staff consulted; no adverse overnight events reported to me; laying in bed; on PSV trial with P-supp at 12 and tolerating well so far; lethargic / sedate; no N/V/F/C; sister visiting Objective Vital Signs - 12hr 11/21/18 11/21/18 11/21/18 02:00 02:15 02:20 Temperature Pulse Rate 96 H 94 H 96 H Pulse Rate [ Bilateral Bases ] Pulse Rate [ 100 H From Monitor] Respiratory 19 20 16 Rate Respiratory Rate [Bilateral Bases] Blood Pressure 126/75 127/79 O2 Sat by Pulse 91 91 98 Oximetry 11/21/18 11/21/18 11/21/18 02:30 02:45 03:00 Temperature Pulse Rate 94 H 92 H 92 H Pulse Rate [ Bilateral Bases ] Pulse Rate [ From Monitor] Respiratory 19 17 19 Rate Respiratory Rate [Bilateral Bases] Blood Pressure 123/71 120/72 122/69 O2 Sat by Pulse 91 92 92 Oximetry 11/21/18 11/21/18 11/21/18 03:15 03:30 03:36 Temperature 98.7 F Pulse Rate 94 H 93 H Pulse Rate [ Bilateral Bases ] Pulse Rate [ From Monitor] Respiratory 19 19 Rate Respiratory Rate [Bilateral Bases] Blood Pressure 122/71 129/76 O2 Sat by Pulse 93 93 Oximetry 11/21/18 11/21/18 11/21/18 03:45 04:00 04:15 Temperature Pulse Rate 90 93 H 98 H Pulse Rate [ Bilateral Bases ] Pulse Rate [ 100 H From Monitor] Respiratory 19 18 18 Rate Respiratory Rate [Bilateral Bases] Blood Pressure 125/74 129/75 134/73 O2 Sat by Pulse 93 92 93 Oximetry 11/21/18 11/21/18 11/21/18 04:30 04:45 05:00 Temperature Pulse Rate 113 H 105 H 93 H Pulse Rate [ Bilateral Bases ] Pulse Rate [ From Monitor] Respiratory 17 17 16 Rate Respiratory Rate [Bilateral Bases] Blood Pressure 126/80 136/75 132/74 O2 Sat by Pulse 94 93 92 Oximetry 11/21/18 11/21/18 11/21/18 05:02 05:15 05:30 Temperature Pulse Rate 110 H 106 H Pulse Rate [ Bilateral Bases ] Pulse Rate [ From Monitor] Respiratory 15 18 Rate Respiratory Rate [Bilateral Bases] Blood Pressure 132/74 130/79 130/79 O2 Sat by Pulse 93 93 93 Oximetry 11/21/18 11/21/18 11/21/18 05:45 06:00 06:15 Temperature Pulse Rate 105 H 105 H 113 H Pulse Rate [ Bilateral Bases ] Pulse Rate [ From Monitor] Respiratory 20 19 19 Rate Respiratory Rate [Bilateral Bases] Blood Pressure 129/76 121/71 118/72 O2 Sat by Pulse 93 92 94 Oximetry 11/21/18 11/21/18 11/21/18 06:30 06:45 07:01 Temperature Pulse Rate 108 H 94 H 95 H Pulse Rate [ Bilateral Bases ] Pulse Rate [ From Monitor] Respiratory 20 20 16 Rate Respiratory Rate [Bilateral Bases] Blood Pressure 126/76 136/74 159/74 O2 Sat by Pulse 93 92 94 Oximetry 11/21/18 11/21/18 11/21/18 07:15 07:30 07:45 Temperature Pulse Rate 92 H 94 H 111 H Pulse Rate [ Bilateral Bases ] Pulse Rate [ From Monitor] Respiratory 21 21 19 Rate Respiratory Rate [Bilateral Bases] Blood Pressure 152/80 155/79 154/86 O2 Sat by Pulse 93 93 94 Oximetry 11/21/18 11/21/18 11/21/18 08:00 08:15 08:30 Temperature 99.1 F Pulse Rate 107 H 107 H 114 H Pulse Rate [ Bilateral Bases ] Pulse Rate [ 107 H From Monitor] Respiratory 19 18 15 Rate Respiratory Rate [Bilateral Bases] Blood Pressure 145/82 129/75 130/93 O2 Sat by Pulse 94 93 93 Oximetry 11/21/18 11/21/18 11/21/18 08:38 08:42 08:45 Temperature Pulse Rate 90 91 H Pulse Rate [ 95 H Bilateral Bases ] Pulse Rate [ From Monitor] Respiratory 17 Rate Respiratory 18 Rate [Bilateral Bases] Blood Pressure 129/76 129/76 O2 Sat by Pulse 93 93 Oximetry 11/21/18 11/21/18 11/21/18 09:00 09:15 09:30 Temperature Pulse Rate 92 H 105 H 104 H Pulse Rate [ Bilateral Bases ] Pulse Rate [ From Monitor] Respiratory 22 19 17 Rate Respiratory Rate [Bilateral Bases] Blood Pressure 131/77 135/78 129/79 O2 Sat by Pulse 97 96 96 Oximetry 11/21/18 11/21/18 11/21/18 09:45 10:01 10:15 Temperature Pulse Rate 90 115 H 125 H Pulse Rate [ Bilateral Bases ] Pulse Rate [ From Monitor] Respiratory 19 20 18 Rate Respiratory Rate [Bilateral Bases] Blood Pressure 135/76 160/79 139/77 O2 Sat by Pulse 93 95 94 Oximetry 11/21/18 11/21/18 11/21/18 10:30 10:45 11:00 Temperature Pulse Rate 128 H 118 H 116 H Pulse Rate [ Bilateral Bases ] Pulse Rate [ From Monitor] Respiratory 19 19 20 Rate Respiratory Rate [Bilateral Bases] Blood Pressure 120/74 116/69 118/72 O2 Sat by Pulse 93 92 92 Oximetry 11/21/18 11/21/18 11/21/18 11:15 11:30 11:45 Temperature Pulse Rate 113 H 112 H 115 H Pulse Rate [ Bilateral Bases ] Pulse Rate [ From Monitor] Respiratory 18 20 21 Rate Respiratory Rate [Bilateral Bases] Blood Pressure 112/70 126/70 117/69 O2 Sat by Pulse 93 92 93 Oximetry 11/21/18 11/21/18 11/21/18 12:00 12:08 12:15 Temperature 98.1 F Pulse Rate 113 H 113 H 112 H Pulse Rate [ Bilateral Bases ] Pulse Rate [ 115 H From Monitor] Respiratory 21 22 19 Rate Respiratory Rate [Bilateral Bases] Blood Pressure 110/64 110/64 132/73 O2 Sat by Pulse 93 95 94 Oximetry 11/21/18 11/21/18 11/21/18 12:28 12:30 12:45 Temperature 98.1 F Pulse Rate 111 H 109 H Pulse Rate [ Bilateral Bases ] Pulse Rate [ From Monitor] Respiratory 21 19 Rate Respiratory Rate [Bilateral Bases] Blood Pressure 117/78 125/76 O2 Sat by Pulse 95 94 Oximetry 11/21/18 13:00 Temperature Pulse Rate 107 H Pulse Rate [ Bilateral Bases ] Pulse Rate [ From Monitor] Respiratory 20 Rate Respiratory Rate [Bilateral Bases] Blood Pressure 123/77 O2 Sat by Pulse 95 Oximetry Constitutional: appears uncomfortable, other (elderly looking obese CF, normocephalic with increased resp effort at rest on MVS) Eyes: non-icteric ENT: oropharynx moist, other (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) Neck: supple, no lymphadenopathy, no JVD, other (large neck circumference) Effort: mildly labored Ascultation: Bilateral: diminished breath sounds, rhonchi Percussion: Bilateral: not dull Cardiovascular: regular rate and rhythm Gastrointestinal: normoactive bowel sounds, soft, non-tender, non-distended Integumentary: normal Extremities: no cyanosis, no edema, pink and warm, pulses normal Neurologic: non-focal exam (grossly), pupils equal and round, motor strength normal and, other (agitated) Psychiatric: other (unable to assess) CBC and BMP: 11/21/18 04:38 11/21/18 04:38 ABG, PT/INR, D-dimer: ABG POC ABG pH 7.423 (7.35-7.45) 11/20/18 04:06 ABG pH 7.247 pH Units (7.350-7.450) L 11/16/18 05:10 POC ABG pCO2 55.6 (35-45) H 11/20/18 04:06 ABG pCO2 64.0 mm Hg 11/16/18 05:10 POC ABG pO2 66 (80-105) L 11/20/18 04:06 ABG pO2 65.7 mm Hg (80.0-90.0) L 11/16/18 05:10 POC ABG HCO3 36.3 (22-26 mml/L) 11/20/18 04:06 POC ABG Total CO2 38 (23-27mmol/L) 11/20/18 04:06 POC ABG O2 Sat 92 11/20/18 04:06 ABG O2 Saturation 89.9 % (95.0-99.0) L 11/16/18 05:10 PT/INR, D-dimer PT 14.1 Sec. (12.2-14.9) 11/14/18 19:39 INR 1.12 (0.87-1.13) 11/14/18 19:39 Abnormal lab findings: Abnormal Labs 11/14/18 11/14/18 11/14/18 18:59 19:39 19:39 WBC RBC 5.30 H MCV MCH 23 L MCHC 29 L RDW 20.5 H Plt Count 132 L Lymph % (Auto) 7.2 L Lymph # 0.6 L Seg Neutrophils % 87.1 H Seg Neuts % (Manual) Lymphocytes % (Manual) Seg Neutrophils # Man Lymphocytes # (Manual) POC ABG pH ABG pH POC ABG pCO2 POC ABG pO2 ABG pO2 ABG HCO3 ABG O2 Saturation ABG Base Excess ABG Hemoglobin ABG Carboxyhemoglobin Oxyhemoglobin Sodium 147 H Potassium Chloride Carbon Dioxide 35 H BUN Creatinine 0.4 L Glucose 121 H POC Glucose 129 H Calcium ALT 6 L Total Protein 6.2 L Albumin 3.4 L 11/14/18 11/15/18 11/15/18 20:45 04:20 04:20 WBC RBC 5.36 H MCV 78 L MCH 22 L MCHC 28 L RDW 20.5 H Plt Count 124 L Lymph % (Auto) Lymph # Seg Neutrophils % Seg Neuts % (Manual) 92.0 H Lymphocytes % (Manual) 6.0 L Seg Neutrophils # Man Lymphocytes # (Manual) 0.4 L POC ABG pH ABG pH 7.346 L POC ABG pCO2 POC ABG pO2 ABG pO2 ABG HCO3 32.4 H ABG O2 Saturation ABG Base Excess 5.3 H ABG Hemoglobin 11.0 L ABG Carboxyhemoglobin 6.4 H Oxyhemoglobin 90.0 L Sodium 146 H Potassium Chloride 107.6 H Carbon Dioxide BUN Creatinine 0.4 L Glucose 132 H POC Glucose Calcium 8.1 L ALT Total Protein Albumin 11/15/18 11/15/18 11/15/18 06:18 12:36 18:06 WBC RBC MCV MCH MCHC RDW Plt Count Lymph % (Auto) Lymph # Seg Neutrophils % Seg Neuts % (Manual) Lymphocytes % (Manual) Seg Neutrophils # Man Lymphocytes # (Manual) POC ABG pH 7.291 L ABG pH POC ABG pCO2 65.4 H POC ABG pO2 65 L ABG pO2 ABG HCO3 ABG O2 Saturation ABG Base Excess ABG Hemoglobin ABG Carboxyhemoglobin Oxyhemoglobin Sodium Potassium Chloride Carbon Dioxide BUN Creatinine Glucose POC Glucose 149 H 171 H Calcium ALT Total Protein Albumin 11/15/18 11/16/18 11/16/18 23:42 00:11 00:11 WBC 11.2 H RBC MCV 77 L MCH 22 L MCHC 28 L RDW 21.3 H Plt Count 136 L Lymph % (Auto) Lymph # Seg Neutrophils % Seg Neuts % (Manual) 89.0 H Lymphocytes % (Manual) 6.0 L Seg Neutrophils # Man 10.0 H Lymphocytes # (Manual) 0.7 L POC ABG pH ABG pH POC ABG pCO2 POC ABG pO2 ABG pO2 ABG HCO3 ABG O2 Saturation ABG Base Excess ABG Hemoglobin ABG Carboxyhemoglobin Oxyhemoglobin Sodium Potassium 5.4 H D Chloride 109.5 H Carbon Dioxide BUN 18 H Creatinine 0.5 L Glucose 118 H POC Glucose 134 H Calcium ALT Total Protein Albumin 11/16/18 11/16/18 11/16/18 05:10 06:55 12:22 WBC RBC MCV MCH MCHC RDW Plt Count Lymph % (Auto) Lymph # Seg Neutrophils % Seg Neuts % (Manual) Lymphocytes % (Manual) Seg Neutrophils # Man Lymphocytes # (Manual) POC ABG pH ABG pH 7.247 L POC ABG pCO2 POC ABG pO2 ABG pO2 65.7 L ABG HCO3 27.3 H ABG O2 Saturation 89.9 L ABG Base Excess ABG Hemoglobin 10.5 L ABG Carboxyhemoglobin Oxyhemoglobin 87.9 L Sodium Potassium Chloride Carbon Dioxide BUN Creatinine Glucose POC Glucose 116 H 106 H Calcium ALT Total Protein Albumin 11/16/18 11/17/18 11/17/18 18:04 04:56 09:26 WBC 15.1 H RBC MCV 77 L MCH 22 L MCHC 28 L RDW 20.4 H Plt Count 134 L Lymph % (Auto) Lymph # Seg Neutrophils % Seg Neuts % (Manual) Lymphocytes % (Manual) Seg Neutrophils # Man Lymphocytes # (Manual) POC ABG pH 7.335 L ABG pH POC ABG pCO2 58.2 H POC ABG pO2 74 L ABG pO2 ABG HCO3 ABG O2 Saturation ABG Base Excess ABG Hemoglobin ABG Carboxyhemoglobin Oxyhemoglobin Sodium Potassium Chloride Carbon Dioxide BUN Creatinine Glucose POC Glucose 117 H Calcium ALT Total Protein Albumin 11/17/18 11/17/18 11/17/18 09:26 18:03 23:49 WBC RBC MCV MCH MCHC RDW Plt Count Lymph % (Auto) Lymph # Seg Neutrophils % Seg Neuts % (Manual) Lymphocytes % (Manual) Seg Neutrophils # Man Lymphocytes # (Manual) POC ABG pH ABG pH POC ABG pCO2 POC ABG pO2 ABG pO2 ABG HCO3 ABG O2 Saturation ABG Base Excess ABG Hemoglobin ABG Carboxyhemoglobin Oxyhemoglobin Sodium 149 H Potassium Chloride 109.0 H Carbon Dioxide BUN 22 H Creatinine 0.4 L Glucose POC Glucose 128 H 129 H Calcium ALT Total Protein Albumin 11/18/18 11/18/18 11/18/18 04:00 06:15 09:35 WBC RBC MCV 76 L MCH 22 L MCHC 29 L RDW 20.3 H Plt Count 111 L Lymph % (Auto) Lymph # Seg Neutrophils % Seg Neuts % (Manual) Lymphocytes % (Manual) Seg Neutrophils # Man Lymphocytes # (Manual) POC ABG pH ABG pH POC ABG pCO2 54.2 H POC ABG pO2 62 L ABG pO2 ABG HCO3 ABG O2 Saturation ABG Base Excess ABG Hemoglobin ABG Carboxyhemoglobin Oxyhemoglobin Sodium Potassium Chloride Carbon Dioxide BUN Creatinine Glucose POC Glucose 144 H Calcium ALT Total Protein Albumin 11/18/18 11/18/18 11/18/18 09:35 12:23 18:21 WBC RBC MCV MCH MCHC RDW Plt Count Lymph % (Auto) Lymph # Seg Neutrophils % Seg Neuts % (Manual) Lymphocytes % (Manual) Seg Neutrophils # Man Lymphocytes # (Manual) POC ABG pH ABG pH POC ABG pCO2 POC ABG pO2 ABG pO2 ABG HCO3 ABG O2 Saturation ABG Base Excess ABG Hemoglobin ABG Carboxyhemoglobin Oxyhemoglobin Sodium 149 H Potassium Chloride 109.5 H Carbon Dioxide 31 H BUN 20 H Creatinine 0.4 L Glucose 137 H POC Glucose 140 H 160 H Calcium ALT Total Protein Albumin 11/18/18 11/19/18 11/19/18 23:55 04:12 05:41 WBC RBC MCV MCH MCHC RDW Plt Count Lymph % (Auto) Lymph # Seg Neutrophils % Seg Neuts % (Manual) Lymphocytes % (Manual) Seg Neutrophils # Man Lymphocytes # (Manual) POC ABG pH 7.345 L ABG pH POC ABG pCO2 64.9 H POC ABG pO2 69 L ABG pO2 ABG HCO3 ABG O2 Saturation ABG Base Excess ABG Hemoglobin ABG Carboxyhemoglobin Oxyhemoglobin Sodium Potassium Chloride Carbon Dioxide BUN Creatinine Glucose POC Glucose 151 H 145 H Calcium ALT Total Protein Albumin 11/19/18 11/19/1819 09:25 11:25 17:55 WBC RBC MCV MCH MCHC RDW Plt Count Lymph % (Auto) Lymph # Seg Neutrophils % Seg Neuts % (Manual) Lymphocytes % (Manual) Seg Neutrophils # Man Lymphocytes # (Manual) POC ABG pH 7.346 L ABG pH POC ABG pCO2 65.3 H POC ABG pO2 71 L ABG pO2 ABG HCO3 ABG O2 Saturation ABG Base Excess ABG Hemoglobin ABG Carboxyhemoglobin Oxyhemoglobin Sodium 150 H Potassium Chloride 109.4 H Carbon Dioxide 32 H BUN 21 H Creatinine 0.3 L Glucose 149 H POC Glucose 160 H Calcium ALT Total Protein Albumin 11/19/18 11/19/18 11/20/18 17:58 23:15 04:06 WBC RBC MCV MCH MCHC RDW Plt Count Lymph % (Auto) Lymph # Seg Neutrophils % Seg Neuts % (Manual) Lymphocytes % (Manual) Seg Neutrophils # Man Lymphocytes # (Manual) POC ABG pH ABG pH POC ABG pCO2 55.6 H POC ABG pO2 66 L ABG pO2 ABG HCO3 ABG O2 Saturation ABG Base Excess ABG Hemoglobin ABG Carboxyhemoglobin Oxyhemoglobin Sodium Potassium Chloride Carbon Dioxide BUN Creatinine Glucose POC Glucose 171 H 156 H Calcium ALT Total Protein Albumin 11/20/18 11/20/18 11/20/18 04:39 04:39 05:14 WBC 12.0 H RBC MCV 76 L MCH 22 L MCHC 29 L RDW 19.7 H Plt Count 80 L Lymph % (Auto) Lymph # Seg Neutrophils % Seg Neuts % (Manual) Lymphocytes % (Manual) Seg Neutrophils # Man Lymphocytes # (Manual) POC ABG pH ABG pH POC ABG pCO2 POC ABG pO2 ABG pO2 ABG HCO3 ABG O2 Saturation ABG Base Excess ABG Hemoglobin ABG Carboxyhemoglobin Oxyhemoglobin Sodium 151 H Potassium Chloride 109.0 H Carbon Dioxide 33 H BUN 18 H Creatinine 0.3 L Glucose 146 H POC Glucose 137 H Calcium ALT Total Protein Albumin 11/20/18 11/20/18 11/20/18 12:28 17:24 23:37 WBC RBC MCV MCH MCHC RDW Plt Count Lymph % (Auto) Lymph # Seg Neutrophils % Seg Neuts % (Manual) Lymphocytes % (Manual) Seg Neutrophils # Man Lymphocytes # (Manual) POC ABG pH ABG pH POC ABG pCO2 POC ABG pO2 ABG pO2 ABG HCO3 ABG O2 Saturation ABG Base Excess ABG Hemoglobin ABG Carboxyhemoglobin Oxyhemoglobin Sodium Potassium Chloride Carbon Dioxide BUN Creatinine Glucose POC Glucose 162 H 161 H 147 H Calcium ALT Total Protein Albumin 11/21/18 11/21/18 11/21/18 04:38 04:38 05:27 WBC RBC MCV 75 L MCH 22 L MCHC RDW 20.2 H Plt Count 82 L Lymph % (Auto) 4.8 L Lymph # 0.4 L Seg Neutrophils % 87.5 H Seg Neuts % (Manual) Lymphocytes % (Manual) Seg Neutrophils # Man Lymphocytes # (Manual) POC ABG pH ABG pH POC ABG pCO2 POC ABG pO2 ABG pO2 ABG HCO3 ABG O2 Saturation ABG Base Excess ABG Hemoglobin ABG Carboxyhemoglobin Oxyhemoglobin Sodium Potassium Chloride Carbon Dioxide 34 H BUN 18 H Creatinine 0.2 L Glucose 163 H POC Glucose 171 H Calcium ALT Total Protein Albumin 11/21/18 12:13 WBC RBC MCV MCH MCHC RDW Plt Count Lymph % (Auto) Lymph # Seg Neutrophils % Seg Neuts % (Manual) Lymphocytes % (Manual) Seg Neutrophils # Man Lymphocytes # (Manual) POC ABG pH ABG pH POC ABG pCO2 POC ABG pO2 ABG pO2 ABG HCO3 ABG O2 Saturation ABG Base Excess ABG Hemoglobin ABG Carboxyhemoglobin Oxyhemoglobin Sodium Potassium Chloride Carbon Dioxide BUN Creatinine Glucose POC Glucose 184 H Calcium ALT Total Protein Albumin Chest x-ray: image reviewed (mild interstitial edema) Allied health notes reviewed: nursing
[2018-11-21] MEDS ORDERED: FUROSEMIDE 20 MG/2 ML INJ IV ONE (16:00)
[2018-11-21] MEDS: LORazepam 2 MG/ML VIAL IV PRN (21:54)
[2018-11-22] MEDS: methylPREDNISolone Sod Succinate 125 MG/2 ML INJ IV SCH ×3 (05:16→21:45)
[2018-11-22] MEDS: INSULIN LISPRO 100 UNIT/ML SUB-Q SCH ×3 (05:19→19:59)
[2018-11-22 05:38] LABS: Basophils % (Auto) 0.3 % (0.0-1.8); Lymphocytes # (Auto) 0.3 K/mm3 (1.2-5.4); Lymphocytes % (Auto) 3.8 % (13.4-35.0); Mean Corpuscular HGB Conc 30 % (30-34); Mean Corpuscular Volume 75 fl (79-97); Monocytes # (Auto) 0.6 K/mm3 (0.0-0.8); Monocytes % (Auto) 7.3 % (0.0-7.3); Red Blood Count 4.82 M/mm3 (3.65-5.03); Red Cell Distribution Width 19.7 % (13.2-15.2)
[2018-11-22 05:43] LABS: Hematocrit 36.1 % (30.3-42.9); Hemoglobin 10.8 gm/dl (10.1-14.3)
[2018-11-22 05:44] LABS: Platelet Count 80 K/mm3 (140-440)
[2018-11-22 06:01] LABS: BUN/Creatinine Ratio 100; Blood Urea Nitrogen 20 mg/dL (7-17); Calcium 8.4 mg/dL (8.4-10.2); Hemolysis Index 5
--- NOTE | 2018-11-22 08:45 | Progress Note ---
Assessment and Plan Assessment and plan: 58 y/o female patient with hx of COPD who presented to the ED via EMS on account of worsening sob. Apparently, the patient called 911 for shortness of breath. Per, EMS, he was noted to be saturating in the 60's in the field. She was given albuterol, steroids, and magnesium in the field. On arrival to the ED, the patient was altered, She was emergently intubated and placed on MV. Patient also has sepsis secondary to pneumonia, evaluated by pulmonary critical, tracheal aspirate MRSA ,on linezolid per ID Today patient is more alert and awake responding to simple questions appropriately Remains intubated on ventilatory support --Acute on chronic combined respiratory failure requiring intubation: Intubated on vent, wean as tolerated and extubate antibiotics per ID. Nebulizes , capping dose of steroids pulmonology following --End-stage COPD; acute exacerbation with chronic hypoxia treat with iv steriods continue taper, abx, nebs around the clock -- Sepsis, tracheal aspirate MRSA;cont linezolid, per ID Contact isolation --Hypernatremia, resolved --Malignant HTN (hypertension).; Well controlled Continue current antihypertensives and when necessary hydralazine --Sinus tachycardia; probably secondary to agitation Supportive care --Nicotine dependence; nicotine patch when necessary. --Thrombocytopenia Remains below 100, stable no active bleeding.Hematology following --DVt Px; SCDs No pharmacologic anticoagulation in view of thrombocytopenia --Full code Continue current inpatient ICU management Consults and recommendations noted and appreciated Plan of care is reviewed in detail with the patient's sister Addressed all her questions and concerns The high probability of a clinically significant, sudden or life threatening deterioration of the [multiple] system(s) required my full and direct attention, intervention and personal management. The aggregate critical care time was [33] minutes. This time is in addition to time spent performing reported procedures but includes the following: [x] Data Review and interpretation [x] Patient assessment and monitoring of vital signs [x] Documentation [x] Medication orders and management History Interval history: Patient seen and examined No new overnight events reported Patient is more alert and awake today responding to simple questions Remains intubated on ventilatory support Vital signs reviewed Hospitalist Physical - Constitutional Vitals: Temp Pulse Resp BP Pulse Ox 97.9 F 88 18 124/63 96 11/22/18 08:00 11/22/18 06:01 11/22/18 06:01 11/22/18 06:01 11/22/18 06:01 General appearance: Present: no acute distress, disheveled, other (intubated on vent , alert and awake) - EENT Eyes: Present: PERRL, EOM intact - Neck Neck: Present: supple, normal ROM - Respiratory Respiratory effort: normal Respiratory: bilateral: diminished, rhonchi, negative: rales, wheezing - Cardiovascular Rhythm: regular Heart Sounds: Present: S1 & S2 - Extremities Extremities: no ischemia, No edema - Abdominal General gastrointestinal: soft, non-tender, non-distended, normal bowel sounds - Integumentary Integumentary: Present: clear, warm - Psychiatric Psychiatric: other (intubated on vent, alert awake) - Neurologic Neurologic: other (intubated on vent) Results - Labs CBC & Chem 7: 11/22/18 04:18 11/22/18 04:18 Labs: Laboratory Last Values WBC 7.8 K/mm3 (4.5-11.0) 11/22/18 04:18 RBC 4.82 M/mm3 (3.65-5.03) 11/22/18 04:18 Hgb 10.8 gm/dl (10.1-14.3) 11/22/18 04:18 Hct 36.1 % (30.3-42.9) 11/22/18 04:18 MCV 75 fl (79-97) L 11/22/18 04:18 MCH 23 pg (28-32) L 11/22/18 04:18 MCHC 30 % (30-34) 11/22/18 04:18 RDW 19.7 % (13.2-15.2) H 11/22/18 04:18 Plt Count 80 K/mm3 (140-440) L 11/22/18 04:18 Lymph % (Auto) 3.8 % (13.4-35.0) L 11/22/18 04:18 Andrew % (Auto) 7.3 % (0.0-7.3) 11/22/18 04:18 Eos % (Auto) 0.0 % (0.0-4.3) 11/22/18 04:18 Baso % (Auto) 0.3 % (0.0-1.8) 11/22/18 04:18 Lymph # 0.3 K/mm3 (1.2-5.4) L 11/22/18 04:18 Andrew # 0.6 K/mm3 (0.0-0.8) 11/22/18 04:18 Eos # 0.0 K/mm3 (0.0-0.4) 11/22/18 04:18 Baso # 0.0 K/mm3 (0.0-0.1) 11/22/18 04:18 Add Manual Diff Complete 11/16/18 00:11 Total Counted 100 11/16/18 00:11 Seg Neutrophils % 88.6 % (40.0-70.0) H 11/22/18 04:18 Seg Neuts % (Manual) 89.0 % (40.0-70.0) H 11/16/18 00:11 Band Neutrophils % 0 % 11/16/18 00:11 Lymphocytes % (Manual) 6.0 % (13.4-35.0) L 11/16/18 00:11 Reactive Lymphs % (Man) 0 % 11/16/18 00:11 Monocytes % (Manual) 5.0 % (0.0-7.3) 11/16/18 00:11 Eosinophils % (Manual) 0 % (0.0-4.3) 11/16/18 00:11 Basophils % (Manual) 0 % (0.0-1.8) 11/16/18 00:11 Metamyelocytes % 0 % 11/16/18 00:11 Myelocytes % 0 % 11/16/18 00:11 Promyelocytes % 0 % 11/16/18 00:11 Blast Cells % 0 % 11/16/18 00:11 Nucleated RBC % Not Reportable 11/16/18 00:11 Seg Neutrophils # 6.9 K/mm3 (1.8-7.7) 11/22/18 04:18 Seg Neutrophils # Man 10.0 K/mm3 (1.8-7.7) H 11/16/18 00:11 Band Neutrophils # 0.0 K/mm3 11/16/18 00:11 Lymphocytes # (Manual) 0.7 K/mm3 (1.2-5.4) L 11/16/18 00:11 Abs React Lymphs (Man) 0.0 K/mm3 11/16/18 00:11 Monocytes # (Manual) 0.6 K/mm3 (0.0-0.8) 11/16/18 00:11 Eosinophils # (Manual) 0.0 K/mm3 (0.0-0.4) 11/16/18 00:11 Basophils # (Manual) 0.0 K/mm3 (0.0-0.1) 11/16/18 00:11 Metamyelocytes # 0.0 K/mm3 11/16/18 00:11 Myelocytes # 0.0 K/mm3 11/16/18 00:11 Promyelocytes # 0.0 K/mm3 11/16/18 00:11 Blast Cells # 0.0 K/mm3 11/16/18 00:11 WBC Morphology Not Reportable 11/16/18 00:11 Hypersegmented Neuts Not Reportable 11/16/18 00:11 Hyposegmented Neuts Not Reportable 11/16/18 00:11 Hypogranular Neuts Not Reportable 11/16/18 00:11 Smudge Cells Not Reportable 11/16/18 00:11 Toxic Granulation Not Reportable 11/16/18 00:11 Toxic Vacuolation Not Reportable 11/16/18 00:11 Dohle Bodies Not Reportable 11/16/18 00:11 Pelger-Huet Anomaly Not Reportable 11/16/18 00:11 Neha Rods Not Reportable 11/16/18 00:11 Platelet Estimate Not Reportable 11/16/18 00:11 Clumped Platelets Not Reportable 11/16/18 00:11 Plt Clumps, EDTA Not Reportable 11/16/18 00:11 Large Platelets Not Reportable 11/16/18 00:11 Giant Platelets 1+ 11/16/18 00:11 Platelet Satelliting Not Reportable 11/16/18 00:11 Plt Morphology Comment Not Reportable 11/16/18 00:11 RBC Morphology Not Reportable 11/16/18 00:11 Dimorphic RBCs Not Reportable 11/16/18 00:11 Polychromasia Not Reportable 11/16/18 00:11 Hypochromasia 2+ 11/16/18 00:11 Poikilocytosis Not Reportable 11/16/18 00:11 Anisocytosis 1+ 11/16/18 00:11 Microcytosis Not Reportable 11/16/18 00:11 Macrocytosis Not Reportable 11/16/18 00:11 Spherocytes Not Reportable 11/16/18 00:11 Pappenheimer Bodies Not Reportable 11/16/18 00:11 Sickle Cells Not Reportable 11/16/18 00:11 Target Cells Not Reportable 11/16/18 00:11 Tear Drop Cells Not Reportable 11/16/18 00:11 Ovalocytes Not Reportable 11/16/18 00:11 Helmet Cells Not Reportable 11/16/18 00:11 [place] Bodies Not Reportable 11/16/18 00:11 [place] Rings Not Reportable 11/16/18 00:11 Damien Cells Not Reportable 11/16/18 00:11 Bite Cells Not Reportable 11/16/18 00:11 Crenated Cell Not Reportable 11/16/18 00:11 Elliptocytes Not Reportable 11/16/18 00:11 Acanthocytes (Spur) Not Reportable 11/16/18 00:11 Rouleaux Not Reportable 11/16/18 00:11 Hemoglobin C Crystals Not Reportable 11/16/18 00:11 Schistocytes Not Reportable 11/16/18 00:11 Malaria parasites Not Reportable 11/16/18 00:11 Hernan Bodies Not Reportable 11/16/18 00:11 Hem Pathologist Commnt No 11/16/18 00:11 PT 14.1 Sec. (12.2-14.9) 11/14/18 19:39 INR 1.12 (0.87-1.13) 11/14/18 19:39 POC ABG pH 7.449 (7.35-7.45) 11/21/18 15:12 ABG pH 7.247 pH Units (7.350-7.450) L 11/16/18 05:10 POC ABG pCO2 51.4 (35-45) H 11/21/18 15:12 ABG pCO2 64.0 mm Hg 11/16/18 05:10 POC ABG pO2 71 (80-105) L 11/21/18 15:12 ABG pO2 65.7 mm Hg (80.0-90.0) L 11/16/18 05:10 POC ABG HCO3 35.6 (22-26 mml/L) 11/21/18 15:12 ABG HCO3 27.3 mmol/L (20.0-26.0) H 11/16/18 05:10 POC ABG Total CO2 37 (23-27mmol/L) 11/21/18 15:12 POC ABG O2 Sat 94 11/21/18 15:12 ABG O2 Saturation 89.9 % (95.0-99.0) L 11/16/18 05:10 ABG O2 Content 13.0 (0.0-44) 11/16/18 05:10 POC ABG Base Excess 12 ((-2) - (+3)mmol/L) 11/21/18 15:12 ABG Base Excess -0.9 mmol/L (-2.0-3.0) 11/16/18 05:10 ABG Hemoglobin 10.5 gm/dl (12.0-16.0) L 11/16/18 05:10 ABG Carboxyhemoglobin 1.7 % (0.0-5.0) 11/16/18 05:10 ABG Methemoglobin 0.5 % (0.0-1.5) 11/16/18 05:10 Oxyhemoglobin 87.9 % (95.0-99.0) L 11/16/18 05:10 FiO2 40 % 11/21/18 15:12 Sodium 142 mmol/L (137-145) 11/22/18 04:18 Potassium 4.1 mmol/L (3.6-5.0) 11/22/18 04:18 Chloride 100.1 mmol/L (98-107) 11/22/18 04:18 Carbon Dioxide 34 mmol/L (22-30) H 11/22/18 04:18 Anion Gap 12 mmol/L 11/22/18 04:18 BUN 20 mg/dL (7-17) H 11/22/18 04:18 Creatinine 0.2 mg/dL (0.7-1.2) L 11/22/18 04:18 Estimated GFR > 60 ml/min 11/22/18 04:18 BUN/Creatinine Ratio 100 % 11/22/18 04:18 Glucose 143 mg/dL (65-100) H 11/22/18 04:18 POC Glucose 140 (70-105) H 11/22/18 05:27 Lactic Acid 1.00 mmol/L (0.7-2.0) 11/19/18 15:47 Calcium 8.4 mg/dL (8.4-10.2) 11/22/18 04:18 Magnesium 2.20 mg/dL (1.7-2.3) 11/21/18 04:38 Total Bilirubin 0.20 mg/dL (0.1-1.2) 11/14/18 19:39 AST 13 units/L (5-40) 11/14/18 19:39 ALT 6 units/L (7-56) L 11/14/18 19:39 Alkaline Phosphatase 85 units/L (35-129) 11/14/18 19:39 Troponin T < 0.010 ng/mL (0.00-0.029) 11/15/18 04:20 C-Reactive Protein 0.00 mg/dL (0.00-1.30) 11/19/18 15:47 Total Protein 6.2 g/dL (6.3-8.2) L 11/14/18 19:39 Albumin 3.4 g/dL (3.9-5) L 11/14/18 19:39 Albumin/Globulin Ratio 1.2 % 11/14/18 19:39 Urine Color Yellow (Yellow) 11/14/18 20:29 Urine Turbidity Clear (Clear) 11/14/18 20:29 Urine pH 5.0 (5.0-7.0) 11/14/18 20:29 Ur Specific [place] 1.026 (1.003-1.030) 11/14/18 20:29 Urine Protein 100 mg/dl mg/dL (Negative) 11/14/18 20:29 Urine Glucose (UA) Neg mg/dL (Negative) 11/14/18 20:29 Urine Ketones Neg mg/dL (Negative) 11/14/18 20:29 Urine Blood Sm (Negative) 11/14/18 20:29 Urine Nitrite Neg (Negative) 11/14/18 20:29 Urine Bilirubin Neg (Negative) 11/14/18 20:29 Urine Urobilinogen < 2.0 mg/dL (<2.0) 11/14/18 20:29 Ur Leukocyte Esterase Neg (Negative) 11/14/18 20:29 Urine WBC (Auto) 6.0 /HPF (0.0-6.0) 11/14/18 20:29 Urine RBC (Auto) 16.0 /HPF (0.0-6.0) 11/14/18 20:29 U Epithel Cells (Auto) 1.0 /HPF (0-13.0) 11/14/18 20:29 Urine Bacteria (Auto) 1+ /HPF (Negative) 11/14/18 20:29 Hyaline Casts 36 /LPF 11/14/18 20:29 Urine Mucus 1+ /HPF 11/14/18 20:29 Vancomycin Trough 12.1 ug/mL (5.0-20.0) 11/19/18 09:25 Active Medications - Current Medications Current Medications: Generic Name Dose Route Start Last Admin Trade Name Freq PRN Reason Stop Dose Admin Acetaminophen 650 mg 11/14/18 22:11 11/19/18 12:00 Tylenol PO 650 mg Q4H PRN Administration Pain MILD(1-3)/Fever >100.5/PRAJAPATI Albuterol 2.5 mg 11/19/18 13:00 Proventil IH Q4HRT PRN Shortness Of Breath Lipase/Protease/Amylase 1 each 11/16/18 12:29 11/18/18 08:15 Pancrejohanne Pereira 10,500 Unit FEEDTUBE 1 each PRN PRN Administration For Clogged Feeding Tube Lipase/Protease/Amylase 1 each 11/20/18 01:46 Pancrejohanne Pereira 10,500 Unit FEEDTUBE PRN PRN For Clogged Feeding Tube Arformoterol Tartrate 15 mcg 11/19/18 20:00 11/21/18 20:21 Brovana Nebu IH 15 mcg Q12HRT DOMINICK Administration Baclofen 10 mg 11/16/18 11:00 11/21/18 21:02 Lioresal PO 10 mg BID DOMINICK Administration Budesonide 0.5 mg 11/19/18 20:00 11/21/18 20:21 Pulmicort IH 0.5 mg Q12HRT DOMINICK Administration Famotidine 20 mg 11/16/18 10:00 11/21/18 21:00 Pepcid PO 20 mg BID DOMINICK Administration Fentanyl 50 mcg 11/14/18 19:14 11/20/18 05:19 Sublimaze IV 50 mcg Q10MIN PRN Administration ANALGESIA Hydralazine HCl 10 mg 11/20/18 08:30 Apresoline IV Q4HR PRN Hypertension Hydrophilic Ointment 1 applic 11/14/18 19:14 Vaseline Lip Therapy TP Q2HR PRN Dry Lips Fentanyl Citrate 2,000 mcg in 100 mls @ 3.629 mls/hr 11/14/18 20:00 11/20/18 16:45 Fentanyl Drip Premix IV Infused TITR DOMINICK Titration Protocol 1 MCG/KG/HR Linezolid 600 mg in 300 mls @ 300 mls/hr 11/21/18 10:00 11/21/18 21:01 Zyvox 600mg/300ml IV 300 mls/hr Q12HR DOMINICK Administration Insulin Human Lispro 0 unit 11/21/18 00:00 11/22/18 05:19 Humalog SUB-Q Not Given Q6HR [facility] Protocol Lorazepam 1 mg 11/20/18 08:15 11/21/18 21:54 Ativan IV 1 mg Q4HR PRN Administration Agitation Methylprednisolone Sodium Succinate 60 mg 11/15/18 22:00 11/22/18 05:16 Solu-Medrol IV 60 mg Q8HR [facility] Administration Multi-Ingred Cream/Lotion/Oil/Oint 1 applic 11/14/18 19:14 Artificial Tears Ophth Oint OU Q4HR PRN Dry Eye(s) Nicotine 14 mg 11/15/18 16:00 11/21/18 09:31 Habitrol TD 14 mg QDAY [facility] Administration Ondansetron HCl 4 mg 11/14/18 22:11 Zofran IV Q8H PRN Nausea And Vomiting Quetiapine Fumarate 300 mg 11/20/18 13:17 11/21/18 21:03 Seroquel PO 300 mg BID DOMINICK Administration Simple Syrup 15 ml 11/16/18 12:29 Simple Syrup FEEDTUBE PRN PRN Hypoglycemia Simple Syrup 30 ml 11/16/18 12:29 Simple Syrup FEEDTUBE PRN PRN Hypoglycemia Simple Syrup 15 ml 11/20/18 01:46 Simple Syrup FEEDTUBE PRN PRN Hypoglycemia Simple Syrup 30 ml 11/20/18 01:46 Simple Syrup FEEDTUBE PRN PRN Hypoglycemia Sodium Bicarbonate 325 mg 11/16/18 12:29 11/18/18 08:15 Sodium Bicarbonate FEEDTUBE 325 mg PRN PRN Administration For Clogged Feeding Tube Sodium Bicarbonate 325 mg 11/20/18 01:46 Sodium Bicarbonate FEEDTUBE PRN PRN For Clogged Feeding Tube Sodium Chloride 10 ml 11/15/18 10:00 11/21/18 21:10 Sodium Chloride Flush Syringe 10 Ml IV 10 ml BID DOMINICK Administration Sodium Chloride 10 ml 11/14/18 22:11 11/21/18 05:38 Sodium Chloride Flush Syringe 10 Ml IV 10 ml PRN PRN Administration LINE FLUSH Tamsulosin HCl 0.4 mg 11/19/18 13:00 11/21/18 09:31 Flomax PO 0.4 mg QDAY DOMINICK Administration Venlafaxine HCl 100 mg 11/16/18 14:00 11/21/18 21:02 Effexor PO 100 mg TID DOMINICK Administration Nutrition/Malnutrition Assess - Dietary Evaluation Nutrition/Malnutrition Findings: Nutrition Notes Start: 11/16/18 08:00 Freq: Status: Active Protocol: Document 11/20/18 12:43 NASRA (Rec: 11/20/18 13:47 NASRA [email or web address]) Co-Sign 11/20/18 12:43 LP Nutrition Notes Initial or Follow up Reassessment Current Diagnosis COPD,Coronary Artery Disease, Hypertension Other Pertinent Diagnosis Nicotine dependence Current Diet Vital AF 1.2 at 55ml/hr Labs/Tests Na 151 Cl 109 CO2 33 BUN 18 Cr 0.3 Gluc 146 Pertinent Medications Solumedrol Height 5 ft 2 in Weight 75.9 kg [place] Body Weight (kg) 50.00 BMI 30.6 Subjective/Other Information TF running at goal. Per RN pt is tolerating TF Percent of energy/protein needs met: 100%/99% Burn Absent Trauma Absent Minimum of two criteria No #1 Nutrition Diagnosis Inadequate oral intake Diagnosis Progress(for reassessment Continues documentation) Is patient on ventilator? Yes Is Patient Ambulatory and/or Out of Bed No REE-([facility]-confined to bed) [phone] Calculation Used for Recommendations [facility] Additional Notes Protein: 100g (>2g/kg IBW 50kg ) Fluid: 1ml/kcal Nutrition Intervention Change Diet Order: Continue current Nutrition Support: Vital AF 1.2 at 55 ml/hr Increase water flush 200 ml q4hr for hypernatremia Kcal 1,584 Protein (gm) 99 Fluid (mL) 1,071 Goal #1 Meet at least 75% energy and protein needs Anticipated Discharge Needs: Unable to determine at this time Follow-Up By: 11/25/18 Additional Comments F/U for TF rate
[2018-11-22] MEDS: VENLAFAXINE 25 MG TAB PO SCH ×3 (09:00→21:46)
[2018-11-22] MEDS: ARFORMOTEROL 15 MCG/2 ML NEBU IH SCH ×2 (09:10→19:58)
[2018-11-22] MEDS: BUDESONIDE 0.5 MG/2 ML NEBU IH SCH ×2 (09:10→19:59)
[2018-11-22] MEDS: TAMSULOSIN 0.4 MG CAP PO SCH (09:13)
[2018-11-22] MEDS: LINEZOLID 600 MG/300 ML BAG IV SCH ×2 (09:13→21:45)
[2018-11-22] MEDS: FAMOTIDINE 20 MG TAB PO SCH ×2 (09:13→21:47)
[2018-11-22] MEDS: BACLOFEN 10 MG TAB PO SCH ×2 (09:13→21:46)
[2018-11-22] MEDS: NICOTINE 14 MG/24 HR PATCH TD SCH (09:13)
[2018-11-22] MEDS: QUEtiapine 100 MG TAB PO SCH ×2 (09:14→21:47)
[2018-11-22] MEDS: LORazepam 2 MG/ML VIAL IV PRN ×2 (09:56→14:07)
--- NOTE | 2018-11-22 15:44 | Progress Note ---
Assessment and Plan Cultures: Blood culture 11/14/2018 no growth today. Tracheal aspirated 11/14/2018 MRSA VITO=2 Tracheal aspirated 11/17/2018 pending Assessment: 58 y/o female with history of tobacco abuse, COPD with chronic respiratory failure on home oxygen known to our service in May 2018 with septic shock and MDR-Pseudomonas/Ecoli pneumonia, admitted on 11/14/2018 due to worsening SOB: 1) Sepsis: fever resolved x 48h; source is LLL pneumonia. CT chest showed LLL pneumonia with minimal emma effusions, no loculation or abscess. Tracheal asp on 11/14 MRSA VITO=2. Recent history of MDR Pseudomonas pneumonia; CXR with mild left basilar pleuroparietal disease, mild diffuse interstitial lung disease. During May 2018 admission she was treated with levaquin for 10 days as the Pseudomonas was resistant to cefepime, zosyn and sensitive to quinolones. Blood culture 11/14/2018 no growth today. Will continue meropenem and start vanacomycin. 2) Chronic respiratory failure: intubated. 3) COPD exacerbation with pneumonia. Recommendations: cotninue linezolid 600 mg IV q 12 hours with careful platelet monitoring - platelets down to 80k on vanco monitor fever linezolid duration total [address] Malone will be rounding tomorrow Will follow. Mirtha Hairston MD Infectious Diseases [employer] Director [facility] M [phone] O [phone] Subjective Date of service: 11/22/18 Principal diagnosis: Ac and ch hypoxic hypercapnic resp failure; AE-COPD; Tobacco use disorder Interval history: Remains on the vent CPAP, no fever x 48h. Objective - Exam Narrative Exam: General appearance: Alert in NAD Eyes: anicteric sclerae, moist conjunctivae; no lid-lag; PERRLA HENT: Atraumatic; oropharynx +ETT +OGT Lungs: emma rhonchi CV: RRR no murmur Abdomen: Soft, non-tender; no masses or hepatosplenomegaly Extremities: no edema, no cyanosis Skin: multiple emma arms ecchymoses Psych: no agitated Neuro:sedated - Constitutional Vitals: Vital Signs Temp Pulse Resp BP Pulse Ox 98 F 114 H 23 114/57 94 11/22/18 12:00 11/22/18 14:31 11/22/18 14:31 11/22/18 14:31 11/22/18 14:31 Temperature -Last 24 Hours Temperature 98 F Temperature 97.9 F Temperature 98.9 F Temperature 99.0 F Temperature 99.0 F Temperature 98.8 F Temperature 98.0 F - Labs CBC & Chem 7: 11/22/18 04:18 11/22/18 04:18 Labs: Abnormal lab results 11/21/18 11/21/18 11/21/18 Range/Units 15:12 18:04 23:46 MCV (79-97) fl MCH (28-32) pg RDW (13.2-15.2) % Plt Count (140-440) K/mm3 Lymph % (Auto) (13.4-35.0) % Lymph # (1.2-5.4) K/mm3 Seg Neutrophils % (40.0-70.0) % POC ABG pCO2 51.4 H (35-45) POC ABG pO2 71 L (80-105) Carbon Dioxide (22-30) mmol/L BUN (7-17) mg/dL Creatinine (0.7-1.2) mg/dL Glucose (65-100) mg/dL POC Glucose 154 H 170 H (70-105) 11/22/18 11/22/18 11/22/18 Range/Units 04:18 04:18 05:27 MCV 75 L (79-97) fl MCH 23 L (28-32) pg RDW 19.7 H (13.2-15.2) % Plt Count 80 L (140-440) K/mm3 Lymph % (Auto) 3.8 L (13.4-35.0) % Lymph # 0.3 L (1.2-5.4) K/mm3 Seg Neutrophils % 88.6 H (40.0-70.0) % POC ABG pCO2 (35-45) POC ABG pO2 (80-105) Carbon Dioxide 34 H (22-30) mmol/L BUN 20 H (7-17) mg/dL Creatinine 0.2 L (0.7-1.2) mg/dL Glucose 143 H (65-100) mg/dL POC Glucose 140 H (70-105)
--- NOTE | 2018-11-22 16:09 | Progress Note ---
Assessment and Plan Acute and chronic hypoxic-hypercapnic respiratory failure AE-COPD Tobacco use disorder/Nicotine dependence( on going) Hypernatremia History of HTN, hypotensive at presentation Chronic narcotic dependence Chronic back pain Anxiety disorder - Extubate - schedule BIPAP qhs - continue Seroquel at current dose - get ABG on PSV; reduce P-supp if pH acceptable - follow dopplers of lower extremity official result's - Oxygen restrictive strategies (PaO2 of 60 with O2 sats 88-90% is acceptable) - continue bronchodilators with pulmonary hygiene per RT - continue trial of flomax re: urinary retention - pull Harley in 24 hours hopefully - continue Brovana and pulmicort re: severe COPD - get lactate and CRP levels to aid clinical decision making prn - Stop benzodiazepine's, reduce the possibility of delirium - Maintenance of sleep-wake cycle, avoid delirium - continue enteral nutritional support at goal rate as tolerated - ST evaluation post extubation - Accuchecks with glycemic control - While critically ill target blood glucose of 140-180 mg/dL; avoid hypoglycemic - VTE prophylaxis(enoxaparin) - Stress ulcer prophylaxis( Famotidine) - continue systemic Steroids - Empiric Antibiotics ; de-escalate per ID rec's - Monitor hemodynamics closely - Avoid delirium - Nicotine withdrawal precautions, nicotine patch - continue other care per attending / other health analytics consultant's ... care plan discussed with Sister in room yesterday; She states she is off tobacco for a few months now .... re-evaluate in am & prn CONDITION: CRITICAL PROGNOSIS: IMPROVED CODE STATUS: FULL CODE In view of ongoing smoking, recurrent hospital admission, will need to re- address advance directives and goals of care, once the patient is able to be a part of that discussion. Will also address smoking cessation again, once she is able to be a part of that discussion The high probability of a clinically significant, sudden or life-threatening deterioration of the respiratory, cardiovascular, neurology, endocrine system(s) required my full and direct attention, intervention and personal management. The aggregate critical care time was [32] minutes without overlap. Time includes spent on; [x] Data Review and interpretation [x] Patient assessment and monitoring of vital signs [x] Documentation [x] Medication orders and management Subjective Date of service: 11/22/18 Principal diagnosis: Ac and ch hypoxic hypercapnic resp failure; AE-COPD; Tobacco use disorder Interval history: Patient is seen today for: Ac and ch hypoxic hypercapnic resp failure; AE-COPD; Tobacco use disorder/Nicotine dependence; Hypernatremia; HTN (hypotensive at p resentation 0; Chronic narcotic dependence ; Chronic back pain; Anxiety disorder Seen and examined at bedside; 24-hour events reviewed; nursing and respiratory care staff consulted; no adverse overnight events reported to me; laying in bed; on SBT and tolerating well; she denies acute chest pains or palpitations; No N/V/F/C; no agitation Objective Vital Signs - 12hr 11/22/18 11/22/18 11/22/18 04:15 04:30 04:45 Temperature Pulse Rate 101 H 91 H 90 Pulse Rate [ Bilateral Bases ] Pulse Rate [ From Monitor] Respiratory 22 19 20 Rate Respiratory Rate [Bilateral Bases] Blood Pressure 112/58 119/62 119/62 O2 Sat by Pulse 95 95 95 Oximetry 11/22/18 11/22/18 11/22/18 04:46 05:01 05:15 Temperature Pulse Rate 91 H 89 85 Pulse Rate [ Bilateral Bases ] Pulse Rate [ From Monitor] Respiratory 18 19 Rate Respiratory Rate [Bilateral Bases] Blood Pressure 119/62 104/56 O2 Sat by Pulse 96 96 Oximetry 11/22/18 11/22/18 11/22/18 05:31 05:45 06:01 Temperature Pulse Rate 88 95 H 88 Pulse Rate [ Bilateral Bases ] Pulse Rate [ From Monitor] Respiratory 17 19 18 Rate Respiratory Rate [Bilateral Bases] Blood Pressure 112/56 112/56 124/63 O2 Sat by Pulse 95 96 96 Oximetry 11/22/18 11/22/18 11/22/18 06:15 06:31 06:45 Temperature Pulse Rate 85 86 85 Pulse Rate [ Bilateral Bases ] Pulse Rate [ From Monitor] Respiratory 20 18 18 Rate Respiratory Rate [Bilateral Bases] Blood Pressure 124/63 115/63 115/63 O2 Sat by Pulse 98 96 97 Oximetry 11/22/18 11/22/18 11/22/18 07:00 07:01 07:15 Temperature Pulse Rate 82 103 H Pulse Rate [ Bilateral Bases ] Pulse Rate [ 82 From Monitor] Respiratory 16 16 20 Rate Respiratory Rate [Bilateral Bases] Blood Pressure 123/65 123/65 O2 Sat by Pulse 96 96 98 Oximetry 11/22/18 11/22/18 11/22/18 07:31 07:45 08:00 Temperature 97.9 F Pulse Rate 102 H 101 H Pulse Rate [ Bilateral Bases ] Pulse Rate [ From Monitor] Respiratory 28 H 23 Rate Respiratory Rate [Bilateral Bases] Blood Pressure 118/73 118/73 O2 Sat by Pulse 96 95 Oximetry 11/22/18 11/22/18 11/22/18 08:01 08:15 08:31 Temperature Pulse Rate 98 H 102 H 112 H Pulse Rate [ Bilateral Bases ] Pulse Rate [ From Monitor] Respiratory 22 22 22 Rate Respiratory Rate [Bilateral Bases] Blood Pressure 122/77 122/77 142/78 O2 Sat by Pulse 81 L 95 Oximetry 11/22/18 11/22/18 11/22/18 08:45 09:00 09:10 Temperature Pulse Rate 113 H 123 H Pulse Rate [ 116 H Bilateral Bases ] Pulse Rate [ From Monitor] Respiratory 24 25 H Rate Respiratory 18 Rate [Bilateral Bases] Blood Pressure 142/78 152/106 O2 Sat by Pulse 92 93 Oximetry 11/22/18 11/22/18 11/22/18 09:15 09:31 09:45 Temperature Pulse Rate 122 H 114 H 157 H Pulse Rate [ Bilateral Bases ] Pulse Rate [ From Monitor] Respiratory 22 25 H 29 H Rate Respiratory Rate [Bilateral Bases] Blood Pressure 152/106 152/106 124/72 O2 Sat by Pulse 96 95 96 Oximetry 11/22/18 11/22/18 11/22/18 10:01 10:15 10:31 Temperature Pulse Rate 143 H 134 H 133 H Pulse Rate [ Bilateral Bases ] Pulse Rate [ From Monitor] Respiratory 30 H 29 H 21 Rate Respiratory Rate [Bilateral Bases] Blood Pressure 124/72 116/56 111/70 O2 Sat by Pulse 75 L 94 94 Oximetry 11/22/18 11/22/18 11/22/18 10:45 11:00 11:15 Temperature Pulse Rate 128 H 124 H 124 H Pulse Rate [ Bilateral Bases ] Pulse Rate [ 124 H From Monitor] Respiratory 29 H 29 H 30 H Rate Respiratory Rate [Bilateral Bases] Blood Pressure 113/60 118/65 118/65 O2 Sat by Pulse 95 96 96 Oximetry 11/22/18 11/22/18 11/22/18 11:31 11:45 12:00 Temperature 98 F Pulse Rate 124 H 125 H Pulse Rate [ Bilateral Bases ] Pulse Rate [ From Monitor] Respiratory 22 21 Rate Respiratory Rate [Bilateral Bases] Blood Pressure 128/70 128/70 O2 Sat by Pulse 96 96 Oximetry 11/22/18 11/22/18 11/22/18 12:01 12:15 12:23 Temperature Pulse Rate 124 H 123 H 123 H Pulse Rate [ Bilateral Bases ] Pulse Rate [ From Monitor] Respiratory 24 27 H 28 H Rate Respiratory Rate [Bilateral Bases] Blood Pressure 160/123 160/123 90/60 O2 Sat by Pulse 97 97 97 Oximetry 11/22/18 11/22/18 11/22/18 12:30 12:45 13:01 Temperature Pulse Rate 120 H 122 H 118 H Pulse Rate [ Bilateral Bases ] Pulse Rate [ From Monitor] Respiratory 28 H 24 25 H Rate Respiratory Rate [Bilateral Bases] Blood Pressure 102/66 102/66 115/57 O2 Sat by Pulse 97 97 97 Oximetry 11/22/18 11/22/18 11/22/18 13:15 13:31 13:45 Temperature Pulse Rate 115 H 117 H 115 H Pulse Rate [ Bilateral Bases ] Pulse Rate [ From Monitor] Respiratory 24 28 H 27 H Rate Respiratory Rate [Bilateral Bases] Blood Pressure 115/57 132/81 132/81 O2 Sat by Pulse 97 96 97 Oximetry 11/22/18 11/22/18 11/22/18 14:01 14:15 14:31 Temperature Pulse Rate 117 H 111 H 114 H Pulse Rate [ Bilateral Bases ] Pulse Rate [ From Monitor] Respiratory 22 28 H 23 Rate Respiratory Rate [Bilateral Bases] Blood Pressure 112/35 114/67 114/57 O2 Sat by Pulse 97 97 94 Oximetry Constitutional: appears uncomfortable, other (elderly looking obese CF, normocephalic with increased resp effort at rest on MVS) Eyes: non-icteric ENT: oropharynx moist, other (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) Neck: supple, no lymphadenopathy, no JVD, other (large neck circumference) Effort: mildly labored Ascultation: Bilateral: diminished breath sounds, rhonchi Percussion: Bilateral: not dull Cardiovascular: regular rate and rhythm Gastrointestinal: normoactive bowel sounds, soft, non-tender, non-distended Integumentary: normal Extremities: no cyanosis, no edema, pink and warm, pulses normal Neurologic: non-focal exam (grossly), pupils equal and round, motor strength normal and, other (agitated) Psychiatric: other (unable to assess) CBC and BMP: 11/22/18 04:18 11/22/18 04:18 ABG, PT/INR, D-dimer: ABG POC ABG pH 7.449 (7.35-7.45) 11/21/18 15:12 ABG pH 7.247 pH Units (7.350-7.450) L 11/16/18 05:10 POC ABG pCO2 51.4 (35-45) H 11/21/18 15:12 ABG pCO2 64.0 mm Hg 11/16/18 05:10 POC ABG pO2 71 (80-105) L 11/21/18 15:12 ABG pO2 65.7 mm Hg (80.0-90.0) L 11/16/18 05:10 POC ABG HCO3 35.6 (22-26 mml/L) 11/21/18 15:12 POC ABG Total CO2 37 (23-27mmol/L) 11/21/18 15:12 POC ABG O2 Sat 94 11/21/18 15:12 ABG O2 Saturation 89.9 % (95.0-99.0) L 11/16/18 05:10 PT/INR, D-dimer PT 14.1 Sec. (12.2-14.9) 11/14/18 19:39 INR 1.12 (0.87-1.13) 11/14/18 19:39 Abnormal lab findings: Abnormal Labs 11/14/18 11/14/18 11/14/18 18:59 19:39 19:39 WBC RBC 5.30 H MCV MCH 23 L MCHC 29 L RDW 20.5 H Plt Count 132 L Lymph % (Auto) 7.2 L Lymph # 0.6 L Seg Neutrophils % 87.1 H Seg Neuts % (Manual) Lymphocytes % (Manual) Seg Neutrophils # Man Lymphocytes # (Manual) POC ABG pH ABG pH POC ABG pCO2 POC ABG pO2 ABG pO2 ABG HCO3 ABG O2 Saturation ABG Base Excess ABG Hemoglobin ABG Carboxyhemoglobin Oxyhemoglobin Sodium 147 H Potassium Chloride Carbon Dioxide 35 H BUN Creatinine 0.4 L Glucose 121 H POC Glucose 129 H Calcium ALT 6 L Total Protein 6.2 L Albumin 3.4 L 11/14/18 11/15/18 11/15/18 20:45 04:20 04:20 WBC RBC 5.36 H MCV 78 L MCH 22 L MCHC 28 L RDW 20.5 H Plt Count 124 L Lymph % (Auto) Lymph # Seg Neutrophils % Seg Neuts % (Manual) 92.0 H Lymphocytes % (Manual) 6.0 L Seg Neutrophils # Man Lymphocytes # (Manual) 0.4 L POC ABG pH ABG pH 7.346 L POC ABG pCO2 POC ABG pO2 ABG pO2 ABG HCO3 32.4 H ABG O2 Saturation ABG Base Excess 5.3 H ABG Hemoglobin 11.0 L ABG Carboxyhemoglobin 6.4 H Oxyhemoglobin 90.0 L Sodium 146 H Potassium Chloride 107.6 H Carbon Dioxide BUN Creatinine 0.4 L Glucose 132 H POC Glucose Calcium 8.1 L ALT Total Protein Albumin 11/15/18 11/15/18 11/15/18 06:18 12:36 18:06 WBC RBC MCV MCH MCHC RDW Plt Count Lymph % (Auto) Lymph # Seg Neutrophils % Seg Neuts % (Manual) Lymphocytes % (Manual) Seg Neutrophils # Man Lymphocytes # (Manual) POC ABG pH 7.291 L ABG pH POC ABG pCO2 65.4 H POC ABG pO2 65 L ABG pO2 ABG HCO3 ABG O2 Saturation ABG Base Excess ABG Hemoglobin ABG Carboxyhemoglobin Oxyhemoglobin Sodium Potassium Chloride Carbon Dioxide BUN Creatinine Glucose POC Glucose 149 H 171 H Calcium ALT Total Protein Albumin 11/15/18 11/16/18 11/16/18 23:42 00:11 00:11 WBC 11.2 H RBC MCV 77 L MCH 22 L MCHC 28 L RDW 21.3 H Plt Count 136 L Lymph % (Auto) Lymph # Seg Neutrophils % Seg Neuts % (Manual) 89.0 H Lymphocytes % (Manual) 6.0 L Seg Neutrophils # Man 10.0 H Lymphocytes # (Manual) 0.7 L POC ABG pH ABG pH POC ABG pCO2 POC ABG pO2 ABG pO2 ABG HCO3 ABG O2 Saturation ABG Base Excess ABG Hemoglobin ABG Carboxyhemoglobin Oxyhemoglobin Sodium Potassium 5.4 H D Chloride 109.5 H Carbon Dioxide BUN 18 H Creatinine 0.5 L Glucose 118 H POC Glucose 134 H Calcium ALT Total Protein Albumin 11/16/18 11/16/18 11/16/18 05:10 06:55 12:22 WBC RBC MCV MCH MCHC RDW Plt Count Lymph % (Auto) Lymph # Seg Neutrophils % Seg Neuts % (Manual) Lymphocytes % (Manual) Seg Neutrophils # Man Lymphocytes # (Manual) POC ABG pH ABG pH 7.247 L POC ABG pCO2 POC ABG pO2 ABG pO2 65.7 L ABG HCO3 27.3 H ABG O2 Saturation 89.9 L ABG Base Excess ABG Hemoglobin 10.5 L ABG Carboxyhemoglobin Oxyhemoglobin 87.9 L Sodium Potassium Chloride Carbon Dioxide BUN Creatinine Glucose POC Glucose 116 H 106 H Calcium ALT Total Protein Albumin 11/16/18 11/17/18 11/17/18 18:04 04:56 09:26 WBC 15.1 H RBC MCV 77 L MCH 22 L MCHC 28 L RDW 20.4 H Plt Count 134 L Lymph % (Auto) Lymph # Seg Neutrophils % Seg Neuts % (Manual) Lymphocytes % (Manual) Seg Neutrophils # Man Lymphocytes # (Manual) POC ABG pH 7.335 L ABG pH POC ABG pCO2 58.2 H POC ABG pO2 74 L ABG pO2 ABG HCO3 ABG O2 Saturation ABG Base Excess ABG Hemoglobin ABG Carboxyhemoglobin Oxyhemoglobin Sodium Potassium Chloride Carbon Dioxide BUN Creatinine Glucose POC Glucose 117 H Calcium ALT Total Protein Albumin 11/17/18 11/17/18 11/17/18 09:26 18:03 23:49 WBC RBC MCV MCH MCHC RDW Plt Count Lymph % (Auto) Lymph # Seg Neutrophils % Seg Neuts % (Manual) Lymphocytes % (Manual) Seg Neutrophils # Man Lymphocytes # (Manual) POC ABG pH ABG pH POC ABG pCO2 POC ABG pO2 ABG pO2 ABG HCO3 ABG O2 Saturation ABG Base Excess ABG Hemoglobin ABG Carboxyhemoglobin Oxyhemoglobin Sodium 149 H Potassium Chloride 109.0 H Carbon Dioxide BUN 22 H Creatinine 0.4 L Glucose POC Glucose 128 H 129 H Calcium ALT Total Protein Albumin 11/18/18 11/18/18 11/18/18 04:00 06:15 09:35 WBC RBC MCV 76 L MCH 22 L MCHC 29 L RDW 20.3 H Plt Count 111 L Lymph % (Auto) Lymph # Seg Neutrophils % Seg Neuts % (Manual) Lymphocytes % (Manual) Seg Neutrophils # Man Lymphocytes # (Manual) POC ABG pH ABG pH POC ABG pCO2 54.2 H POC ABG pO2 62 L ABG pO2 ABG HCO3 ABG O2 Saturation ABG Base Excess ABG Hemoglobin ABG Carboxyhemoglobin Oxyhemoglobin Sodium Potassium Chloride Carbon Dioxide BUN Creatinine Glucose POC Glucose 144 H Calcium ALT Total Protein Albumin 11/18/18 11/18/18 11/18/18 09:35 12:23 18:21 WBC RBC MCV MCH MCHC RDW Plt Count Lymph % (Auto) Lymph # Seg Neutrophils % Seg Neuts % (Manual) Lymphocytes % (Manual) Seg Neutrophils # Man Lymphocytes # (Manual) POC ABG pH ABG pH POC ABG pCO2 POC ABG pO2 ABG pO2 ABG HCO3 ABG O2 Saturation ABG Base Excess ABG Hemoglobin ABG Carboxyhemoglobin Oxyhemoglobin Sodium 149 H Potassium Chloride 109.5 H Carbon Dioxide 31 H BUN 20 H Creatinine 0.4 L Glucose 137 H POC Glucose 140 H 160 H Calcium ALT Total Protein Albumin 11/18/18 11/19/18 11/19/18 23:55 04:12 05:41 WBC RBC MCV MCH MCHC RDW Plt Count Lymph % (Auto) Lymph # Seg Neutrophils % Seg Neuts % (Manual) Lymphocytes % (Manual) Seg Neutrophils # Man Lymphocytes # (Manual) POC ABG pH 7.345 L ABG pH POC ABG pCO2 64.9 H POC ABG pO2 69 L ABG pO2 ABG HCO3 ABG O2 Saturation ABG Base Excess ABG Hemoglobin ABG Carboxyhemoglobin Oxyhemoglobin Sodium Potassium Chloride Carbon Dioxide BUN Creatinine Glucose POC Glucose 151 H 145 H Calcium ALT Total Protein Albumin 11/19/18 11/19/18 11/19/18 09:25 11:25 17:55 WBC RBC MCV MCH MCHC RDW Plt Count Lymph % (Auto) Lymph # Seg Neutrophils % Seg Neuts % (Manual) Lymphocytes % (Manual) Seg Neutrophils # Man Lymphocytes # (Manual) POC ABG pH 7.346 L ABG pH POC ABG pCO2 65.3 H POC ABG pO2 71 L ABG pO2 ABG HCO3 ABG O2 Saturation ABG Base Excess ABG Hemoglobin ABG Carboxyhemoglobin Oxyhemoglobin Sodium 150 H Potassium Chloride 109.4 H Carbon Dioxide 32 H BUN 21 H Creatinine 0.3 L Glucose 149 H POC Glucose 160 H Calcium ALT Total Protein Albumin 11/19/18 11/19/18 11/20/18 17:58 23:15 04:06 WBC RBC MCV MCH MCHC RDW Plt Count Lymph % (Auto) Lymph # Seg Neutrophils % Seg Neuts % (Manual) Lymphocytes % (Manual) Seg Neutrophils # Man Lymphocytes # (Manual) POC ABG pH ABG pH POC ABG pCO2 55.6 H POC ABG pO2 66 L ABG pO2 ABG HCO3 ABG O2 Saturation ABG Base Excess ABG Hemoglobin ABG Carboxyhemoglobin Oxyhemoglobin Sodium Potassium Chloride Carbon Dioxide BUN Creatinine Glucose POC Glucose 171 H 156 H Calcium ALT Total Protein Albumin 11/20/18 11/20/18 11/20/18 04:39 04:39 05:14 WBC 12.0 H RBC MCV 76 L MCH 22 L MCHC 29 L RDW 19.7 H Plt Count 80 L Lymph % (Auto) Lymph # Seg Neutrophils % Seg Neuts % (Manual) Lymphocytes % (Manual) Seg Neutrophils # Man Lymphocytes # (Manual) POC ABG pH ABG pH POC ABG pCO2 POC ABG pO2 ABG pO2 ABG HCO3 ABG O2 Saturation ABG Base Excess ABG Hemoglobin ABG Carboxyhemoglobin Oxyhemoglobin Sodium 151 H Potassium Chloride 109.0 H Carbon Dioxide 33 H BUN 18 H Creatinine 0.3 L Glucose 146 H POC Glucose 137 H Calcium ALT Total Protein Albumin 11/20/18 11/20/18 11/20/18 12:28 17:24 23:37 WBC RBC MCV MCH MCHC RDW Plt Count Lymph % (Auto) Lymph # Seg Neutrophils % Seg Neuts % (Manual) Lymphocytes % (Manual) Seg Neutrophils # Man Lymphocytes # (Manual) POC ABG pH ABG pH POC ABG pCO2 POC ABG pO2 ABG pO2 ABG HCO3 ABG O2 Saturation ABG Base Excess ABG Hemoglobin ABG Carboxyhemoglobin Oxyhemoglobin Sodium Potassium Chloride Carbon Dioxide BUN Creatinine Glucose POC Glucose 162 H 161 H 147 H Calcium ALT Total Protein Albumin 11/21/18 11/21/18 11/21/18 04:38 04:38 05:27 WBC RBC MCV 75 L MCH 22 L MCHC RDW 20.2 H Plt Count 82 L Lymph % (Auto) 4.8 L Lymph # 0.4 L Seg Neutrophils % 87.5 H Seg Neuts % (Manual) Lymphocytes % (Manual) Seg Neutrophils # Man Lymphocytes # (Manual) POC ABG pH ABG pH POC ABG pCO2 POC ABG pO2 ABG pO2 ABG HCO3 ABG O2 Saturation ABG Base Excess ABG Hemoglobin ABG Carboxyhemoglobin Oxyhemoglobin Sodium Potassium Chloride Carbon Dioxide 34 H BUN 18 H Creatinine 0.2 L Glucose 163 H POC Glucose 171 H Calcium ALT Total Protein Albumin 11/21/18 11/21/18 11/21/18 12:13 15:12 18:04 WBC RBC MCV MCH MCHC RDW Plt Count Lymph % (Auto) Lymph # Seg Neutrophils % Seg Neuts % (Manual) Lymphocytes % (Manual) Seg Neutrophils # Man Lymphocytes # (Manual) POC ABG pH ABG pH POC ABG pCO2 51.4 H POC ABG pO2 71 L ABG pO2 ABG HCO3 ABG O2 Saturation ABG Base Excess ABG Hemoglobin ABG Carboxyhemoglobin Oxyhemoglobin Sodium Potassium Chloride Carbon Dioxide BUN Creatinine Glucose POC Glucose 184 H 154 H Calcium ALT Total Protein Albumin 11/21/18 11/22/18 11/22/18 23:46 04:18 04:18 WBC RBC MCV 75 L MCH 23 L MCHC RDW 19.7 H Plt Count 80 L Lymph % (Auto) 3.8 L Lymph # 0.3 L Seg Neutrophils % 88.6 H Seg Neuts % (Manual) Lymphocytes % (Manual) Seg Neutrophils # Man Lymphocytes # (Manual) POC ABG pH ABG pH POC ABG pCO2 POC ABG pO2 ABG pO2 ABG HCO3 ABG O2 Saturation ABG Base Excess ABG Hemoglobin ABG Carboxyhemoglobin Oxyhemoglobin Sodium Potassium Chloride Carbon Dioxide 34 H BUN 20 H Creatinine 0.2 L Glucose 143 H POC Glucose 170 H Calcium ALT Total Protein Albumin 11/22/18 05:27 WBC RBC MCV MCH MCHC RDW Plt Count Lymph % (Auto) Lymph # Seg Neutrophils % Seg Neuts % (Manual) Lymphocytes % (Manual) Seg Neutrophils # Man Lymphocytes # (Manual) POC ABG pH ABG pH POC ABG pCO2 POC ABG pO2 ABG pO2 ABG HCO3 ABG O2 Saturation ABG Base Excess ABG Hemoglobin ABG Carboxyhemoglobin Oxyhemoglobin Sodium Potassium Chloride Carbon Dioxide BUN Creatinine Glucose POC Glucose 140 H Calcium ALT Total Protein Albumin Allied health notes reviewed: nursing
[2018-11-22] MEDS: IPRATROPIUM/ALBUTEROL SULFATE 3 ML AMPUL.NEB IH SCH (19:58)
[2018-11-22] MEDS: fentaNYL 100 MCG/2 ML INJ IV PRN (23:18)
[2018-11-23] MEDS: INSULIN LISPRO 100 UNIT/ML SUB-Q SCH ×5 (00:22→23:44)
[2018-11-23] MEDS: LORazepam 2 MG/ML VIAL IV PRN ×3 (00:49→20:02)
[2018-11-23] MEDS: IPRATROPIUM/ALBUTEROL SULFATE 3 ML AMPUL.NEB IH SCH ×4 (03:41→22:30)
[2018-11-23] MEDS: methylPREDNISolone Sod Succinate 125 MG/2 ML INJ IV SCH ×3 (05:48→22:42)
--- NOTE | 2018-11-23 07:58 | Progress Note ---
Assessment and Plan Assessment and plan: 58 y/o female patient with hx of COPD who presented to the ED via EMS on account of worsening sob. Apparently, the patient called 911 for shortness of breath. Per, EMS, he was noted to be saturating in the 60's in the field. She was given albuterol, steroids, and magnesium in the field. On arrival to the ED, the patient was altered, She was emergently intubated and placed on MV. Patient also has sepsis secondary to pneumonia, evaluated by pulmonary critical, tracheal aspirate MRSA ,on linezolid per ID Today patient is more alert and awake responding to simple questions appropriately Extubated on 11/22/18 at 5 pm --Anxiety: low dose Xanax,supportive care --Acute on chronic combined respiratory failure requiring intubation: extubated yesterday evening,on ventimask 35% 02 sats > 94% antibiotics per ID. Nebulizes steroids pulmonology following --End-stage COPD; acute exacerbation with chronic hypoxia treat with iv steriods continue taper, abx, nebs around the clock -- Sepsis, tracheal aspirate MRSA;cont linezolid, per ID Contact isolation --Hypernatremia, resolved --Malignant HTN (hypertension).; Well controlled Continue current antihypertensives and when necessary hydralazine --Sinus tachycardia; probably secondary to agitation Supportive care --Nicotine dependence; nicotine patch when necessary. --Thrombocytopenia Remains below 100, stable no active bleeding.Hematology following --DVt Px; SCDs No pharmacologic anticoagulation in view of thrombocytopenia --Full code --Nutrition: bed side swallow/speech and swallow Diet as tolerated Patient may be transferred out of ICU if OK with pulm. The high probability of a clinically significant, sudden or life threatening deterioration of the [multiple] system(s) required my full and direct attention, intervention and personal management. The aggregate critical care time was [31] minutes. This time is in addition to time spent performing reported procedures but includes the following: [x] Data Review and interpretation [x] Patient assessment and monitoring of vital signs [x] Documentation [x] Medication orders and management History Interval history: Patient seen and examined, overnight events noted. Extubated yesterday.on Bipap,pt refused on venti mask anxious Vitals reviewed Hospitalist Physical - Constitutional Vitals: Temp Pulse Resp BP Pulse Ox 97.9 F 119 H 19 127/74 91 11/23/18 04:06 11/23/18 06:31 11/23/18 06:31 11/23/18 06:31 11/23/18 06:31 General appearance: Present: no acute distress, disheveled, other (confused) - EENT Eyes: Present: PERRL, EOM intact - Neck Neck: Present: supple, normal ROM - Respiratory Respiratory effort: normal Respiratory: bilateral: diminished, negative: rales, rhonchi, wheezing - Cardiovascular Rhythm: regular Heart Sounds: Present: S1 & S2 - Extremities Extremities: no ischemia, No edema - Abdominal General gastrointestinal: soft, non-tender, non-distended, normal bowel sounds - Integumentary Integumentary: Present: clear, warm - Psychiatric Psychiatric: appropriate mood/affect, cooperative - Neurologic Neurologic: CNII-XII intact, moves all extremities Results - Labs CBC & Chem 7: 11/22/18 04:18 11/22/18 04:18 Labs: Laboratory Last Values WBC 7.8 K/mm3 (4.5-11.0) 11/22/18 04:18 RBC 4.82 M/mm3 (3.65-5.03) 11/22/18 04:18 Hgb 10.8 gm/dl (10.1-14.3) 11/22/18 04:18 Hct 36.1 % (30.3-42.9) 11/22/18 04:18 MCV 75 fl (79-97) L 11/22/18 04:18 MCH 23 pg (28-32) L 11/22/18 04:18 MCHC 30 % (30-34) 11/22/18 04:18 RDW 19.7 % (13.2-15.2) H 11/22/18 04:18 Plt Count 80 K/mm3 (140-440) L 11/22/18 04:18 Lymph % (Auto) 3.8 % (13.4-35.0) L 11/22/18 04:18 [place] % (Auto) 7.3 % (0.0-7.3) 11/22/18 04:18 Eos % (Auto) 0.0 % (0.0-4.3) 11/22/18 04:18 Baso % (Auto) 0.3 % (0.0-1.8) 11/22/18 04:18 Lymph # 0.3 K/mm3 (1.2-5.4) L 11/22/18 04:18 [place] # 0.6 K/mm3 (0.0-0.8) 11/22/18 04:18 Eos # 0.0 K/mm3 (0.0-0.4) 11/22/18 04:18 Baso # 0.0 K/mm3 (0.0-0.1) 11/22/18 04:18 Add Manual Diff Complete 11/16/18 00:11 Total Counted 100 11/16/18 00:11 Seg Neutrophils % 88.6 % (40.0-70.0) H 11/22/18 04:18 Seg Neuts % (Manual) 89.0 % (40.0-70.0) H 11/16/18 00:11 Band Neutrophils % 0 % 11/16/18 00:11 Lymphocytes % (Manual) 6.0 % (13.4-35.0) L 11/16/18 00:11 Reactive Lymphs % (Man) 0 % 11/16/18 00:11 Monocytes % (Manual) 5.0 % (0.0-7.3) 11/16/18 00:11 Eosinophils % (Manual) 0 % (0.0-4.3) 11/16/18 00:11 Basophils % (Manual) 0 % (0.0-1.8) 11/16/18 00:11 Metamyelocytes % 0 % 11/16/18 00:11 Myelocytes % 0 % 11/16/18 00:11 Promyelocytes % 0 % 11/16/18 00:11 Blast Cells % 0 % 11/16/18 00:11 Nucleated RBC % Not Reportable 11/16/18 00:11 Seg Neutrophils # 6.9 K/mm3 (1.8-7.7) 11/22/18 04:18 Seg Neutrophils # Man 10.0 K/mm3 (1.8-7.7) H 11/16/18 00:11 Band Neutrophils # 0.0 K/mm3 11/16/18 00:11 Lymphocytes # (Manual) 0.7 K/mm3 (1.2-5.4) L 11/16/18 00:11 Abs React Lymphs (Man) 0.0 K/mm3 11/16/18 00:11 Monocytes # (Manual) 0.6 K/mm3 (0.0-0.8) 11/16/18 00:11 Eosinophils # (Manual) 0.0 K/mm3 (0.0-0.4) 11/16/18 00:11 Basophils # (Manual) 0.0 K/mm3 (0.0-0.1) 11/16/18 00:11 Metamyelocytes # 0.0 K/mm3 11/16/18 00:11 Myelocytes # 0.0 K/mm3 11/16/18 00:11 Promyelocytes # 0.0 K/mm3 11/16/18 00:11 Blast Cells # 0.0 K/mm3 11/16/18 00:11 WBC Morphology Not Reportable 11/16/18 00:11 Hypersegmented Neuts Not Reportable 11/16/18 00:11 Hyposegmented Neuts Not Reportable 11/16/18 00:11 Hypogranular Neuts Not Reportable 11/16/18 00:11 Smudge Cells Not Reportable 11/16/18 00:11 Toxic Granulation Not Reportable 11/16/18 00:11 Toxic Vacuolation Not Reportable 11/16/18 00:11 Dohle Bodies Not Reportable 11/16/18 00:11 Pelger-Huet Anomaly Not Reportable 11/16/18 00:11 Neha Rods Not Reportable 11/16/18 00:11 Platelet Estimate Not Reportable 11/16/18 00:11 Clumped Platelets Not Reportable 11/16/18 00:11 Plt Clumps, EDTA Not Reportable 11/16/18 00:11 Large Platelets Not Reportable 11/16/18 00:11 Giant Platelets 1+ 11/16/18 00:11 Platelet Satelliting Not Reportable 11/16/18 00:11 Plt Morphology Comment Not Reportable 11/16/18 00:11 RBC Morphology Not Reportable 11/16/18 00:11 Dimorphic RBCs Not Reportable 11/16/18 00:11 Polychromasia Not Reportable 11/16/18 00:11 Hypochromasia 2+ 11/16/18 00:11 Poikilocytosis Not Reportable 11/16/18 00:11 Anisocytosis 1+ 11/16/18 00:11 Microcytosis Not Reportable 11/16/18 00:11 Macrocytosis Not Reportable 11/16/18 00:11 Spherocytes Not Reportable 11/16/18 00:11 Pappenheimer Bodies Not Reportable 11/16/18 00:11 Sickle Cells Not Reportable 11/16/18 00:11 Target Cells Not Reportable 11/16/18 00:11 Tear Drop Cells Not Reportable 11/16/18 00:11 Ovalocytes Not Reportable 11/16/18 00:11 Helmet Cells Not Reportable 11/16/18 00:11 [place] Bodies Not Reportable 11/16/18 00:11 [place] Rings Not Reportable 11/16/18 00:11 [place] Cells Not Reportable 11/16/18 00:11 Bite Cells Not Reportable 11/16/18 00:11 Crenated Cell Not Reportable 11/16/18 00:11 Elliptocytes Not Reportable 11/16/18 00:11 Acanthocytes (Spur) Not Reportable 11/16/18 00:11 Rouleaux Not Reportable 11/16/18 00:11 Hemoglobin C Crystals Not Reportable 11/16/18 00:11 Schistocytes Not Reportable 11/16/18 00:11 Malaria parasites Not Reportable 11/16/18 00:11 [place] Bodies Not Reportable 11/16/18 00:11 Hem Pathologist Commnt No 11/16/18 00:11 PT 14.1 Sec. (12.2-14.9) 11/14/18 19:39 INR 1.12 (0.87-1.13) 11/14/18 19:39 POC ABG pH 7.488 (7.35-7.45) H 11/22/18 14:54 ABG pH 7.247 pH Units (7.350-7.450) L 11/16/18 05:10 POC ABG pCO2 48.1 (35-45) H 11/22/18 14:54 ABG pCO2 64.0 mm Hg 11/16/18 05:10 POC ABG pO2 69 (80-105) L 11/22/18 14:54 ABG pO2 65.7 mm Hg (80.0-90.0) L 11/16/18 05:10 POC ABG HCO3 36.5 (22-26 mml/L) 11/22/18 14:54 ABG HCO3 27.3 mmol/L (20.0-26.0) H 11/16/18 05:10 POC ABG Total CO2 38 (23-27mmol/L) 11/22/18 14:54 POC ABG O2 Sat 95 11/22/18 14:54 ABG O2 Saturation 89.9 % (95.0-99.0) L 11/16/18 05:10 ABG O2 Content 13.0 (0.0-44) 11/16/18 05:10 POC ABG Base Excess 13 ((-2) - (+3)mmol/L) 11/22/18 14:54 ABG Base Excess -0.9 mmol/L (-2.0-3.0) 11/16/18 05:10 ABG Hemoglobin 10.5 gm/dl (12.0-16.0) L 11/16/18 05:10 ABG Carboxyhemoglobin 1.7 % (0.0-5.0) 11/16/18 05:10 ABG Methemoglobin 0.5 % (0.0-1.5) 11/16/18 05:10 Oxyhemoglobin 87.9 % (95.0-99.0) L 11/16/18 05:10 FiO2 50 % 11/22/18 14:54 Sodium 142 mmol/L (137-145) 11/22/18 04:18 Potassium 4.1 mmol/L (3.6-5.0) 11/22/18 04:18 Chloride 100.1 mmol/L (98-107) 11/22/18 04:18 Carbon Dioxide 34 mmol/L (22-30) H 11/22/18 04:18 Anion Gap 12 mmol/L 11/22/18 04:18 BUN 20 mg/dL (7-17) H 11/22/18 04:18 Creatinine 0.2 mg/dL (0.7-1.2) L 11/22/18 04:18 Estimated GFR > 60 ml/min 11/22/18 04:18 BUN/Creatinine Ratio 100 % 11/22/18 04:18 Glucose 143 mg/dL (65-100) H 11/22/18 04:18 POC Glucose 108 (70-105) H 11/23/18 05:32 Lactic Acid 1.00 mmol/L (0.7-2.0) 11/19/18 15:47 Calcium 8.4 mg/dL (8.4-10.2) 11/22/18 04:18 Magnesium 2.20 mg/dL (1.7-2.3) 11/21/18 04:38 Total Bilirubin 0.20 mg/dL (0.1-1.2) 11/14/18 19:39 AST 13 units/L (5-40) 11/14/18 19:39 ALT 6 units/L (7-56) L 11/14/18 19:39 Alkaline Phosphatase 85 units/L (35-129) 11/14/18 19:39 Troponin T < 0.010 ng/mL (0.00-0.029) 11/15/18 04:20 C-Reactive Protein 0.00 mg/dL (0.00-1.30) 11/19/18 15:47 Total Protein 6.2 g/dL (6.3-8.2) L 11/14/18 19:39 Albumin 3.4 g/dL (3.9-5) L 11/14/18 19:39 Albumin/Globulin Ratio 1.2 % 11/14/18 19:39 Urine Color Yellow (Yellow) 11/14/18 20:29 Urine Turbidity Clear (Clear) 11/14/18 20:29 Urine pH 5.0 (5.0-7.0) 11/14/18 20:29 Ur Specific [place] 1.026 (1.003-1.030) 11/14/18 20:29 Urine Protein 100 mg/dl mg/dL (Negative) 11/14/18 20:29 Urine Glucose (UA) Neg mg/dL (Negative) 11/14/18 20:29 Urine Ketones Neg mg/dL (Negative) 11/14/18 20:29 Urine Blood Sm (Negative) 11/14/18 20:29 Urine Nitrite Neg (Negative) 11/14/18 20:29 Urine Bilirubin Neg (Negative) 11/14/18 20:29 Urine Urobilinogen < 2.0 mg/dL (<2.0) 11/14/18 20:29 Ur Leukocyte Esterase Neg (Negative) 11/14/18 20:29 Urine WBC (Auto) 6.0 /HPF (0.0-6.0) 11/14/18 20:29 Urine RBC (Auto) 16.0 /HPF (0.0-6.0) 11/14/18 20:29 U Epithel Cells (Auto) 1.0 /HPF (0-13.0) 11/14/18 20:29 Urine Bacteria (Auto) 1+ /HPF (Negative) 11/14/18 20:29 Hyaline Casts 36 /LPF 11/14/18 20:29 Urine Mucus 1+ /HPF 11/14/18 20:29 Vancomycin Trough 12.1 ug/mL (5.0-20.0) 11/19/18 09:25 Active Medications - Current Medications Current Medications: Generic Name Dose Route Start Last Admin Trade Name Freq PRN Reason Stop Dose Admin Acetaminophen 650 mg 11/14/18 22:11 11/19/18 12:00 Tylenol PO 650 mg Q4H PRN Administration Pain MILD(1-3)/Fever >100.5/PRAJAPATI Albuterol 2.5 mg 11/19/18 13:00 Proventil IH Q4HRT PRN Shortness Of Breath Albuterol/Ipratropium 1 ampul 11/22/18 20:00 11/23/18 03:41 Duoneb *Not For Prn Use* IH 1 ampul Q6HRT DOMINICK Administration Alprazolam 0.25 mg 11/23/18 07:48 Xanax PO Q8H PRN Anxiety Lipase/Protease/Amylase 1 each 11/16/18 12:29 11/18/18 08:15 Chicho Pereira 10,500 Unit FEEDTUBE 1 each PRN PRN Administration For Clogged Feeding Tube Lipase/Protease/Amylase 1 each 11/20/18 01:46 Chicho Pereira 10,500 Unit FEEDTUBE PRN PRN For Clogged Feeding Tube Arformoterol Tartrate 15 mcg 11/19/18 20:00 11/22/18 19:58 Brovana Nebu IH 15 mcg Q12HRT DOMINICK Administration Baclofen 10 mg 11/16/18 11:00 11/22/18 21:46 Lioresal PO Not Given BID DOMINICK Budesonide 0.5 mg 11/19/18 20:00 11/22/18 19:59 Pulmicort IH 0.5 mg Q12HRT DOMINICK Administration Famotidine 20 mg 11/16/18 10:00 11/22/18 21:47 Pepcid PO Not Given BID DOMINICK Fentanyl 50 mcg 11/14/18 19:14 11/22/18 23:18 Sublimaze IV 50 mcg Q10MIN PRN Administration ANALGESIA Hydralazine HCl 10 mg 11/20/18 08:30 Apresoline IV Q4HR PRN Hypertension Hydrophilic Ointment 1 applic 11/14/18 19:14 Vaseline Lip Therapy TP Q2HR PRN Dry Lips Fentanyl Citrate 2,000 mcg in 100 mls @ 3.629 mls/hr 11/14/18 20:00 11/20/18 16:45 Fentanyl Drip Premix IV Infused TITR [facility] Titration Protocol 1 MCG/KG/HR Linezolid 600 mg in 300 mls @ 300 mls/hr 11/21/18 10:00 11/22/18 21:45 Zyvox 600mg/300ml IV 300 mls/hr Q12HR DOMINICK Administration Insulin Human Lispro 0 unit 11/21/18 00:00 11/23/18 05:48 Humalog SUB-Q Not Given Q6HR [facility] Protocol Lorazepam 1 mg 11/20/18 08:15 11/23/18 00:49 Ativan IV 1 mg Q4HR PRN Administration Agitation Methylprednisolone Sodium Succinate 60 mg 11/15/18 22:00 11/23/18 05:48 Solu-Medrol IV 60 mg Q8HR [facility] Administration Multi-Ingred Cream/Lotion/Oil/Oint 1 applic 11/14/18 19:14 Artificial Tears Ophth Oint OU Q4HR PRN Dry Eye(s) Nicotine 14 mg 11/15/18 16:00 11/22/18 09:13 Habitrol TD 14 mg QDAY DOMINICK Administration Ondansetron HCl 4 mg 11/14/18 22:11 Zofran IV Q8H PRN Nausea And Vomiting Quetiapine Fumarate 300 mg 11/20/18 13:17 11/22/18 21:47 Seroquel PO Not Given BID DOMINICK Simple Syrup 15 ml 11/16/18 12:29 Simple Syrup FEEDTUBE PRN PRN Hypoglycemia Simple Syrup 30 ml 11/16/18 12:29 Simple Syrup FEEDTUBE PRN PRN Hypoglycemia Simple Syrup 15 ml 11/20/18 01:46 Simple Syrup FEEDTUBE PRN PRN Hypoglycemia Simple Syrup 30 ml 11/20/18 01:46 Simple Syrup FEEDTUBE PRN PRN Hypoglycemia Sodium Bicarbonate 325 mg 11/16/18 12:29 11/18/18 08:15 Sodium Bicarbonate FEEDTUBE 325 mg PRN PRN Administration For Clogged Feeding Tube Sodium Bicarbonate 325 mg 11/20/18 01:46 Sodium Bicarbonate FEEDTUBE PRN PRN For Clogged Feeding Tube Sodium Chloride 10 ml 11/15/18 10:00 11/22/18 21:45 Sodium Chloride Flush Syringe 10 Ml IV 10 ml BID DOMINICK Administration Sodium Chloride 10 ml 11/14/18 22:11 11/21/18 05:38 Sodium Chloride Flush Syringe 10 Ml IV 10 ml PRN PRN Administration LINE FLUSH Tamsulosin HCl 0.4 mg 11/19/18 13:00 11/22/18 09:13 Flomax PO 0.4 mg QDAY DOMINICK Administration Venlafaxine HCl 100 mg 11/16/18 14:00 11/22/18 21:46 Effexor PO Not Given TID DOMINICK Nutrition/Malnutrition Assess - Dietary Evaluation Nutrition/Malnutrition Findings: Nutrition Notes Start: 11/16/18 08:00 Freq: Status: Active Protocol: Document 11/20/18 12:43 NASRA (Rec: 11/20/18 13:47 NASRA [email or web address]) Co-Sign 11/20/18 12:43 LP Nutrition Notes Initial or Follow up Reassessment Current Diagnosis COPD,Coronary Artery Disease, Hypertension Other Pertinent Diagnosis Nicotine dependence Current Diet Vital AF 1.2 at 55ml/hr Labs/Tests Na 151 Cl 109 CO2 33 BUN 18 Cr 0.3 Gluc 146 Pertinent Medications Solumedrol Height 5 ft 2 in Weight 75.9 kg [place] Body Weight (kg) 50.00 BMI 30.6 Subjective/Other Information TF running at goal. Per RN pt is tolerating TF Percent of energy/protein needs met: 100%/99% Burn Absent Trauma Absent Minimum of two criteria No #1 Nutrition Diagnosis Inadequate oral intake Diagnosis Progress(for reassessment Continues documentation) Is patient on ventilator? Yes Is Patient Ambulatory and/or Out of Bed No REE-([facility]-confined to bed) [phone] Calculation Used for Recommendations [facility] Additional Notes Protein: 100g (>2g/kg IBW 50kg ) Fluid: 1ml/kcal Nutrition Intervention Change Diet Order: Continue current Nutrition Support: Vital AF 1.2 at 55 ml/hr Increase water flush 200 ml q4hr for hypernatremia Kcal 1,584 Protein (gm) 99 Fluid (mL) 1,071 Goal #1 Meet at least 75% energy and protein needs Anticipated Discharge Needs: Unable to determine at this time Follow-Up By: 11/25/18 Additional Comments F/U for TF rate
[2018-11-23] MEDS ORDERED: ALPRAZolam 0.25 MG TAB PO PRN (08:02)
[2018-11-23] MEDS: BUDESONIDE 0.5 MG/2 ML NEBU IH SCH ×2 (08:16→20:36)
[2018-11-23] MEDS: ARFORMOTEROL 15 MCG/2 ML NEBU IH SCH ×2 (08:22→20:31)
[2018-11-23] MEDS: QUEtiapine 100 MG TAB PO SCH ×2 (09:35→22:27)
[2018-11-23] MEDS: BACLOFEN 10 MG TAB PO SCH ×2 (09:35→22:26)
[2018-11-23] MEDS: VENLAFAXINE 25 MG TAB PO SCH ×3 (09:36→20:00)
[2018-11-23] MEDS: FAMOTIDINE 20 MG TAB PO SCH ×2 (09:36→22:27)
[2018-11-23] MEDS: TAMSULOSIN 0.4 MG CAP PO SCH (09:36)
[2018-11-23] MEDS: NICOTINE 14 MG/24 HR PATCH TD SCH (09:36)
[2018-11-23] MEDS: LINEZOLID 600 MG TAB PO SCH ×2 (11:10→22:46)
--- NOTE | 2018-11-23 12:44 | Progress Note ---
Assessment and Plan Cultures: Blood culture 11/14/2018 no growth today. Tracheal aspirated 11/14/2018 MRSA VITO=2 Tracheal aspirated 11/17/2018 pending Assessment: 58 y/o female with history of tobacco abuse, COPD with chronic respiratory failure on home oxygen known to our service in May 2018 with septic shock and MDR-Pseudomonas/Ecoli pneumonia, admitted on 11/14/2018 due to worsening SOB: 1) Sepsis: fever resolved x 48h; source is LLL pneumonia. CT chest showed LLL pneumonia with minimal emma effusions, no loculation or abscess. Tracheal asp on 11/14 MRSA VITO=2. Recent history of MDR Pseudomonas pneumonia; CXR with mild left basilar pleuroparietal disease, mild diffuse interstitial lung disease. During May 2018 admission she was treated with levaquin for 10 days as the Pseudomonas was resistant to cefepime, zosyn and sensitive to quinolones. Blood culture 11/14/2018 no growth today. 2) Chronic respiratory failure: intubated. 3) COPD exacerbation with pneumonia. Recommendations: cotninue linezolid 600 mg IV q 12 hours with careful platelet monitoring - platelets down to 80k on vanco monitor fever linezolid duration total 7 days Will follow. Shukri Malone MD [facility] M: [phone] O: [phone] F: [phone] Subjective Date of service: 11/23/18 Principal diagnosis: Ac and ch hypoxic hypercapnic resp failure; AE-COPD; Tobacco use disorder Interval history: Afebrile with normal white count. no new issues. Objective - Exam Narrative Exam: General appearance: Alert in NAD Eyes: anicteric sclerae, moist conjunctivae; no lid-lag; PERRLA HENT: Atraumatic; oropharynx +ETT +OGT Lungs: emma rhonchi CV: RRR no murmur Abdomen: Soft, non-tender; no masses or hepatosplenomegaly Extremities: no edema, no cyanosis Skin: multiple emma arms ecchymoses Psych: no agitated Neuro: Moves spontaneously. - Constitutional Vitals: Vital Signs Temp Pulse Resp BP Pulse Ox 97.5 F L 129 H 24 158/123 91 11/23/18 08:00 11/23/18 09:31 11/23/18 08:00 11/23/18 09:31 11/23/18 09:01 Temperature -Last 24 Hours Temperature 97.5 F Temperature 97.9 F Temperature 97.9 F Temperature 98.0 F Temperature 98.1 F Temperature 97.9 F - Labs CBC & Chem 7: 11/22/18 04:18 11/22/18 04:18 Labs: Abnormal lab results 11/22/18 11/22/18 11/23/18 Range/Units 14:54 18:34 00:03 POC ABG pH 7.488 H (7.35-7.45) POC ABG pCO2 48.1 H (35-45) POC ABG pO2 69 L (80-105) POC Glucose 152 H 141 H (70-105) 11/23/18 Range/Units 05:32 POC ABG pH (7.35-7.45) POC ABG pCO2 (35-45) POC ABG pO2 (80-105) POC Glucose 108 H (70-105)
--- NOTE | 2018-11-23 13:22 | Progress Note ---
Assessment and Plan Acute and chronic hypoxic-hypercapnic respiratory failure AE-COPD Tobacco use disorder/Nicotine dependence( on going) Hypernatremia History of HTN, hypotensive at presentation Chronic narcotic dependence Chronic back pain Anxiety disorder - continue scheduled BIPAP qhs - continue Seroquel at current dose - dopplers of lower extremity reportedly negative - continue Oxygen restrictive strategies (PaO2 of 60 with O2 sats 88-90% is acceptable) - continue bronchodilators with pulmonary hygiene per RT - continue trial of flomax re: urinary retention - continue Brovana and pulmicort re: severe COPD - get lactate and CRP levels to aid clinical decision making prn - Stop benzodiazepine's, reduce the possibility of delirium - Maintenance of sleep-wake cycle, avoid delirium - continue enteral nutritional support at goal rate as tolerated - ST evaluation - Accuchecks with glycemic control - While critically ill target blood glucose of 140-180 mg/dL; avoid hypoglycemic - VTE prophylaxis(enoxaparin) - Stress ulcer prophylaxis( Famotidine) - continue systemic Steroids - Empiric Antibiotics ; de-escalate per ID rec's - Monitor hemodynamics closely - Avoid delirium - Nicotine withdrawal precautions, nicotine patch - continue other care per attending / other it systems analyst consultant's .... re-evaluate in am & prn CONDITION: IMPROVED PROGNOSIS: GUARDED CODE STATUS: FULL CODE I have spent ( >35 ) minutes with the patient w/ >50% of the time spent counseling and/or coordinating care for this patient. Counseling topics and/or how time was spent coordinating patient's care is outlined in the impression and plan above. Subjective Date of service: 11/23/18 Principal diagnosis: Ac and ch hypoxic hypercapnic resp failure; AE-COPD; Tobacco use disorder Interval history: Patient is seen today for: Ac and ch hypoxic hypercapnic resp failure; AE-COPD; Tobacco use disorder/Nicotine dependence; Hypernatremia; HTN (hypotensive at presentation 0; Chronic narcotic dependence ; Chronic back pain; Anxiety disorder Seen and examined at bedside; 24-hour events reviewed; nursing and respiratory care staff consulted; no adverse overnight events reported to me; laying in bed; doing well post extubation so far; No N/V/F/C; remains on supplemental oxygen with mildly increased work of breathing at rest Objective Vital Signs - 12hr 11/23/18 11/23/18 11/23/18 01:30 02:00 02:01 Temperature Pulse Rate 93 H 92 H Pulse Rate [ 103 H Anterior Bilateral] Pulse Rate [ Bilateral Bases ] Pulse Rate [ From Monitor] Respiratory 18 18 Rate Respiratory 24 Rate [Anterior Bilateral] Respiratory Rate [Bilateral Bases] Blood Pressure 133/76 125/73 O2 Sat by Pulse 96 96 Oximetry 11/23/18 11/23/18 11/23/18 02:31 03:01 03:31 Temperature Pulse Rate 92 H 100 H 89 Pulse Rate [ Anterior Bilateral] Pulse Rate [ Bilateral Bases ] Pulse Rate [ From Monitor] Respiratory 16 26 H 22 Rate Respiratory Rate [Anterior Bilateral] Respiratory Rate [Bilateral Bases] Blood Pressure 130/66 136/70 136/70 O2 Sat by Pulse 96 86 96 Oximetry 11/23/18 11/23/18 11/23/18 03:55 04:00 04:01 Temperature 97.9 F Pulse Rate 107 H 121 H Pulse Rate [ Anterior Bilateral] Pulse Rate [ Bilateral Bases ] Pulse Rate [ 121 H From Monitor] Respiratory 24 24 Rate Respiratory Rate [Anterior Bilateral] Respiratory Rate [Bilateral Bases] Blood Pressure 122/72 O2 Sat by Pulse 100 100 Oximetry 11/23/18 11/23/18 11/23/18 04:06 04:31 05:00 Temperature 97.9 F Pulse Rate 115 H 117 H Pulse Rate [ Anterior Bilateral] Pulse Rate [ Bilateral Bases ] Pulse Rate [ From Monitor] Respiratory 22 25 H Rate Respiratory Rate [Anterior Bilateral] Respiratory Rate [Bilateral Bases] Blood Pressure 123/72 130/82 O2 Sat by Pulse 95 99 Oximetry 11/23/18 11/23/18 11/23/18 05:31 06:00 06:31 Temperature Pulse Rate 120 H 118 H 119 H Pulse Rate [ Anterior Bilateral] Pulse Rate [ Bilateral Bases ] Pulse Rate [ From Monitor] Respiratory 20 28 H 19 Rate Respiratory Rate [Anterior Bilateral] Respiratory Rate [Bilateral Bases] Blood Pressure 123/106 119/77 127/74 O2 Sat by Pulse 95 91 Oximetry 11/23/18 11/23/18 11/23/18 07:01 07:31 08:00 Temperature 97.5 F L Pulse Rate 113 H 111 H 117 H Pulse Rate [ 104 H Anterior Bilateral] Pulse Rate [ 118 H Bilateral Bases ] Pulse Rate [ 114 H From Monitor] Respiratory 23 28 H 23 Rate Respiratory 24 Rate [Anterior Bilateral] Respiratory 18 Rate [Bilateral Bases] Blood Pressure 143/83 88/62 168/91 O2 Sat by Pulse 96 96 100 Oximetry 11/23/18 11/23/18 11/23/18 08:30 09:01 09:31 Temperature Pulse Rate 115 H 118 H 129 H Pulse Rate [ Anterior Bilateral] Pulse Rate [ Bilateral Bases ] Pulse Rate [ From Monitor] Respiratory Rate Respiratory Rate [Anterior Bilateral] Respiratory Rate [Bilateral Bases] Blood Pressure 148/73 141/59 158/123 O2 Sat by Pulse 91 Oximetry Constitutional: appears uncomfortable, other (elderly looking obese CF, normocephalic with increased resp effort at rest on MVS) Eyes: non-icteric ENT: oropharynx moist, other (extubated) Neck: supple, no lymphadenopathy, no JVD, other (large neck circumference) Effort: mildly labored Ascultation: Bilateral: diminished breath sounds, rhonchi Percussion: Bilateral: not dull Cardiovascular: regular rate and rhythm Gastrointestinal: normoactive bowel sounds, soft, non-tender, non-distended Integumentary: normal Extremities: no cyanosis, no edema, pink and warm, pulses normal Neurologic: non-focal exam (grossly), pupils equal and round, motor strength normal and, other (agitated) Psychiatric: other (unable to assess) CBC and BMP: 11/27/18 05:04 11/24/18 05:57 ABG, PT/INR, D-dimer: ABG POC ABG pH 7.488 (7.35-7.45) H 11/22/18 14:54 ABG pH 7.247 pH Units (7.350-7.450) L 11/16/18 05:10 POC ABG pCO2 48.1 (35-45) H 11/22/18 14:54 ABG pCO2 64.0 mm Hg 11/16/18 05:10 POC ABG pO2 69 (80-105) L 11/22/18 14:54 ABG pO2 65.7 mm Hg (80.0-90.0) L 11/16/18 05:10 POC ABG HCO3 36.5 (22-26 mml/L) 11/22/18 14:54 POC ABG Total CO2 38 (23-27mmol/L) 11/22/18 14:54 POC ABG O2 Sat 95 11/22/18 14:54 ABG O2 Saturation 89.9 % (95.0-99.0) L 11/16/18 05:10 PT/INR, D-dimer PT 14.1 Sec. (12.2-14.9) 11/14/18 19:39 INR 1.12 (0.87-1.13) 11/14/18 19:39 Abnormal lab findings: Abnormal Labs 11/14/18 11/14/18 11/14/18 18:59 19:39 19:39 WBC RBC 5.30 H MCV MCH 23 L MCHC 29 L RDW 20.5 H Plt Count 132 L Lymph % (Auto) 7.2 L Lymph # 0.6 L Seg Neutrophils % 87.1 H Seg Neuts % (Manual) Lymphocytes % (Manual) Seg Neutrophils # Man Lymphocytes # (Manual) POC ABG pH ABG pH POC ABG pCO2 POC ABG pO2 ABG pO2 ABG HCO3 ABG O2 Saturation ABG Base Excess ABG Hemoglobin ABG Carboxyhemoglobin Oxyhemoglobin Sodium 147 H Potassium Chloride Carbon Dioxide 35 H BUN Creatinine 0.4 L Glucose 121 H POC Glucose 129 H Calcium ALT 6 L Total Protein 6.2 L Albumin 3.4 L 11/14/18 11/15/18 11/15/18 20:45 04:20 04:20 WBC RBC 5.36 H MCV 78 L MCH 22 L MCHC 28 L RDW 20.5 H Plt Count 124 L Lymph % (Auto) Lymph # Seg Neutrophils % Seg Neuts % (Manual) 92.0 H Lymphocytes % (Manual) 6.0 L Seg Neutrophils # Man Lymphocytes # (Manual) 0.4 L POC ABG pH ABG pH 7.346 L POC ABG pCO2 POC ABG pO2 ABG pO2 ABG HCO3 32.4 H ABG O2 Saturation ABG Base Excess 5.3 H ABG Hemoglobin 11.0 L ABG Carboxyhemoglobin 6.4 H Oxyhemoglobin 90.0 L Sodium 146 H Potassium Chloride 107.6 H Carbon Dioxide BUN Creatinine 0.4 L Glucose 132 H POC Glucose Calcium 8.1 L ALT Total Protein Albumin 11/15/18 11/15/18 11/15/18 06:18 12:36 18:06 WBC RBC MCV MCH MCHC RDW Plt Count Lymph % (Auto) Lymph # Seg Neutrophils % Seg Neuts % (Manual) Lymphocytes % (Manual) Seg Neutrophils # Man Lymphocytes # (Manual) POC ABG pH 7.291 L ABG pH POC ABG pCO2 65.4 H POC ABG pO2 65 L ABG pO2 ABG HCO3 ABG O2 Saturation ABG Base Excess ABG Hemoglobin ABG Carboxyhemoglobin Oxyhemoglobin Sodium Potassium Chloride Carbon Dioxide BUN Creatinine Glucose POC Glucose 149 H 171 H Calcium ALT Total Protein Albumin 11/15/18 11/16/18 11/16/18 23:42 00:11 00:11 WBC 11.2 H RBC MCV 77 L MCH 22 L MCHC 28 L RDW 21.3 H Plt Count 136 L Lymph % (Auto) Lymph # Seg Neutrophils % Seg Neuts % (Manual) 89.0 H Lymphocytes % (Manual) 6.0 L Seg Neutrophils # Man 10.0 H Lymphocytes # (Manual) 0.7 L POC ABG pH ABG pH POC ABG pCO2 POC ABG pO2 ABG pO2 ABG HCO3 ABG O2 Saturation ABG Base Excess ABG Hemoglobin ABG Carboxyhemoglobin Oxyhemoglobin Sodium Potassium 5.4 H D Chloride 109.5 H Carbon Dioxide BUN 18 H Creatinine 0.5 L Glucose 118 H POC Glucose 134 H Calcium ALT Total Protein Albumin 11/16/18 11/16/18 11/16/18 05:10 06:55 12:22 WBC RBC MCV MCH MCHC RDW Plt Count Lymph % (Auto) Lymph # Seg Neutrophils % Seg Neuts % (Manual) Lymphocytes % (Manual) Seg Neutrophils # Man Lymphocytes # (Manual) POC ABG pH ABG pH 7.247 L POC ABG pCO2 POC ABG pO2 ABG pO2 65.7 L ABG HCO3 27.3 H ABG O2 Saturation 89.9 L ABG Base Excess ABG Hemoglobin 10.5 L ABG Carboxyhemoglobin Oxyhemoglobin 87.9 L Sodium Potassium Chloride Carbon Dioxide BUN Creatinine Glucose POC Glucose 116 H 106 H Calcium ALT Total Protein Albumin 11/16/18 11/17/18 11/17/18 18:04 04:56 09:26 WBC 15.1 H RBC MCV 77 L MCH 22 L MCHC 28 L RDW 20.4 H Plt Count 134 L Lymph % (Auto) Lymph # Seg Neutrophils % Seg Neuts % (Manual) Lymphocytes % (Manual) Seg Neutrophils # Man Lymphocytes # (Manual) POC ABG pH 7.335 L ABG pH POC ABG pCO2 58.2 H POC ABG pO2 74 L ABG pO2 ABG HCO3 ABG O2 Saturation ABG Base Excess ABG Hemoglobin ABG Carboxyhemoglobin Oxyhemoglobin Sodium Potassium Chloride Carbon Dioxide BUN Creatinine Glucose POC Glucose 117 H Calcium ALT Total Protein Albumin 11/17/18 11/17/18 11/17/18 09:26 18:03 23:49 WBC RBC MCV MCH MCHC RDW Plt Count Lymph % (Auto) Lymph # Seg Neutrophils % Seg Neuts % (Manual) Lymphocytes % (Manual) Seg Neutrophils # Man Lymphocytes # (Manual) POC ABG pH ABG pH POC ABG pCO2 POC ABG pO2 ABG pO2 ABG HCO3 ABG O2 Saturation ABG Base Excess ABG Hemoglobin ABG Carboxyhemoglobin Oxyhemoglobin Sodium 149 H Potassium Chloride 109.0 H Carbon Dioxide BUN 22 H Creatinine 0.4 L Glucose POC Glucose 128 H 129 H Calcium ALT Total Protein Albumin 11/18/18 11/18/18 11/18/18 04:00 06:15 09:35 WBC RBC MCV 76 L MCH 22 L MCHC 29 L RDW 20.3 H Plt Count 111 L Lymph % (Auto) Lymph # Seg Neutrophils % Seg Neuts % (Manual) Lymphocytes % (Manual) Seg Neutrophils # Man Lymphocytes # (Manual) POC ABG pH ABG pH POC ABG pCO2 54.2 H POC ABG pO2 62 L ABG pO2 ABG HCO3 ABG O2 Saturation ABG Base Excess ABG Hemoglobin ABG Carboxyhemoglobin Oxyhemoglobin Sodium Potassium Chloride Carbon Dioxide BUN Creatinine Glucose POC Glucose 144 H Calcium ALT Total Protein Albumin 11/18/18 11/18/18 11/18/18 09:35 12:23 18:21 WBC RBC MCV MCH MCHC RDW Plt Count Lymph % (Auto) Lymph # Seg Neutrophils % Seg Neuts % (Manual) Lymphocytes % (Manual) Seg Neutrophils # Man Lymphocytes # (Manual) POC ABG pH ABG pH POC ABG pCO2 POC ABG pO2 ABG pO2 ABG HCO3 ABG O2 Saturation ABG Base Excess ABG Hemoglobin ABG Carboxyhemoglobin Oxyhemoglobin Sodium 149 H Potassium Chloride 109.5 H Carbon Dioxide 31 H BUN 20 H Creatinine 0.4 L Glucose 137 H POC Glucose 140 H 160 H Calcium ALT Total Protein Albumin 11/18/18 11/19/18 11/19/18 23:55 04:12 05:41 WBC RBC MCV MCH MCHC RDW Plt Count Lymph % (Auto) Lymph # Seg Neutrophils % Seg Neuts % (Manual) Lymphocytes % (Manual) Seg Neutrophils # Man Lymphocytes # (Manual) POC ABG pH 7.345 L ABG pH POC ABG pCO2 64.9 H POC ABG pO2 69 L ABG pO2 ABG HCO3 ABG O2 Saturation ABG Base Excess ABG Hemoglobin ABG Carboxyhemoglobin Oxyhemoglobin Sodium Potassium Chloride Carbon Dioxide BUN Creatinine Glucose POC Glucose 151 H 145 H Calcium ALT Total Protein Albumin 11/19/18 11/19/18 11/19/18 09:25 11:25 17:55 WBC RBC MCV MCH MCHC RDW Plt Count Lymph % (Auto) Lymph # Seg Neutrophils % Seg Neuts % (Manual) Lymphocytes % (Manual) Seg Neutrophils # Man Lymphocytes # (Manual) POC ABG pH 7.346 L ABG pH POC ABG pCO2 65.3 H POC ABG pO2 71 L ABG pO2 ABG HCO3 ABG O2 Saturation ABG Base Excess ABG Hemoglobin ABG Carboxyhemoglobin Oxyhemoglobin Sodium 150 H Potassium Chloride 109.4 H Carbon Dioxide 32 H BUN 21 H Creatinine 0.3 L Glucose 149 H POC Glucose 160 H Calcium ALT Total Protein Albumin 11/19/18 11/19/18 11/20/18 17:58 23:15 04:06 WBC RBC MCV MCH MCHC RDW Plt Count Lymph % (Auto) Lymph # Seg Neutrophils % Seg Neuts % (Manual) Lymphocytes % (Manual) Seg Neutrophils # Man Lymphocytes # (Manual) POC ABG pH ABG pH POC ABG pCO2 55.6 H POC ABG pO2 66 L ABG pO2 ABG HCO3 ABG O2 Saturation ABG Base Excess ABG Hemoglobin ABG Carboxyhemoglobin Oxyhemoglobin Sodium Potassium Chloride Carbon Dioxide BUN Creatinine Glucose POC Glucose 171 H 156 H Calcium ALT Total Protein Albumin 11/20/18 11/20/18 11/20/18 04:39 04:39 05:14 WBC 12.0 H RBC MCV 76 L MCH 22 L MCHC 29 L RDW 19.7 H Plt Count 80 L Lymph % (Auto) Lymph # Seg Neutrophils % Seg Neuts % (Manual) Lymphocytes % (Manual) Seg Neutrophils # Man Lymphocytes # (Manual) POC ABG pH ABG pH POC ABG pCO2 POC ABG pO2 ABG pO2 ABG HCO3 ABG O2 Saturation ABG Base Excess ABG Hemoglobin ABG Carboxyhemoglobin Oxyhemoglobin Sodium 151 H Potassium Chloride 109.0 H Carbon Dioxide 33 H BUN 18 H Creatinine 0.3 L Glucose 146 H POC Glucose 137 H Calcium ALT Total Protein Albumin 11/20/18 11/20/18 11/20/18 12:28 17:24 23:37 WBC RBC MCV MCH MCHC RDW Plt Count Lymph % (Auto) Lymph # Seg Neutrophils % Seg Neuts % (Manual) Lymphocytes % (Manual) Seg Neutrophils # Man Lymphocytes # (Manual) POC ABG pH ABG pH POC ABG pCO2 POC ABG pO2 ABG pO2 ABG HCO3 ABG O2 Saturation ABG Base Excess ABG Hemoglobin ABG Carboxyhemoglobin Oxyhemoglobin Sodium Potassium Chloride Carbon Dioxide BUN Creatinine Glucose POC Glucose 162 H 161 H 147 H Calcium ALT Total Protein Albumin 11/21/18 11/21/18 11/21/18 04:38 04:38 05:27 WBC RBC MCV 75 L MCH 22 L MCHC RDW 20.2 H Plt Count 82 L Lymph % (Auto) 4.8 L Lymph # 0.4 L Seg Neutrophils % 87.5 H Seg Neuts % (Manual) Lymphocytes % (Manual) Seg Neutrophils # Man Lymphocytes # (Manual) POC ABG pH ABG pH POC ABG pCO2 POC ABG pO2 ABG pO2 ABG HCO3 ABG O2 Saturation ABG Base Excess ABG Hemoglobin ABG Carboxyhemoglobin Oxyhemoglobin Sodium Potassium Chloride Carbon Dioxide 34 H BUN 18 H Creatinine 0.2 L Glucose 163 H POC Glucose 171 H Calcium ALT Total Protein Albumin 11/21/18 11/21/18 11/21/18 12:13 15:12 18:04 WBC RBC MCV MCH MCHC RDW Plt Count Lymph % (Auto) Lymph # Seg Neutrophils % Seg Neuts % (Manual) Lymphocytes % (Manual) Seg Neutrophils # Man Lymphocytes # (Manual) POC ABG pH ABG pH POC ABG pCO2 51.4 H POC ABG pO2 71 L ABG pO2 ABG HCO3 ABG O2 Saturation ABG Base Excess ABG Hemoglobin ABG Carboxyhemoglobin Oxyhemoglobin Sodium Potassium Chloride Carbon Dioxide BUN Creatinine Glucose POC Glucose 184 H 154 H Calcium ALT Total Protein Albumin 11/21/18 11/22/18 11/22/18 23:46 04:18 04:18 WBC RBC MCV 75 L MCH 23 L MCHC RDW 19.7 H Plt Count 80 L Lymph % (Auto) 3.8 L Lymph # 0.3 L Seg Neutrophils % 88.6 H Seg Neuts % (Manual) Lymphocytes % (Manual) Seg Neutrophils # Man Lymphocytes # (Manual) POC ABG pH ABG pH POC ABG pCO2 POC ABG pO2 ABG pO2 ABG HCO3 ABG O2 Saturation ABG Base Excess ABG Hemoglobin ABG Carboxyhemoglobin Oxyhemoglobin Sodium Potassium Chloride Carbon Dioxide 34 H BUN 20 H Creatinine 0.2 L Glucose 143 H POC Glucose 170 H Calcium ALT Total Protein Albumin 11/22/18 11/22/18 11/22/18 05:27 14:54 18:34 WBC RBC MCV MCH MCHC RDW Plt Count Lymph % (Auto) Lymph # Seg Neutrophils % Seg Neuts % (Manual) Lymphocytes % (Manual) Seg Neutrophils # Man Lymphocytes # (Manual) POC ABG pH 7.488 H ABG pH POC ABG pCO2 48.1 H POC ABG pO2 69 L ABG pO2 ABG HCO3 ABG O2 Saturation ABG Base Excess ABG Hemoglobin ABG Carboxyhemoglobin Oxyhemoglobin Sodium Potassium Chloride Carbon Dioxide BUN Creatinine Glucose POC Glucose 140 H 152 H Calcium ALT Total Protein Albumin 11/23/18 11/23/18 00:03 05:32 WBC RBC MCV MCH MCHC RDW Plt Count Lymph % (Auto) Lymph # Seg Neutrophils % Seg Neuts % (Manual) Lymphocytes % (Manual) Seg Neutrophils # Man Lymphocytes # (Manual) POC ABG pH ABG pH POC ABG pCO2 POC ABG pO2 ABG pO2 ABG HCO3 ABG O2 Saturation ABG Base Excess ABG Hemoglobin ABG Carboxyhemoglobin Oxyhemoglobin Sodium Potassium Chloride Carbon Dioxide BUN Creatinine Glucose POC Glucose 141 H 108 H Calcium ALT Total Protein Albumin Allied health notes reviewed: nursing
[2018-11-23] MEDS ORDERED: IPRATROPIUM/ALBUTEROL SULFATE 3 ML AMPUL.NEB IH ONE (14:51)
[2018-11-24] MEDS: methylPREDNISolone Sod Succinate 125 MG/2 ML INJ IV SCH ×3 (06:27→21:17)
[2018-11-24 06:30] LABS: Mean Corpuscular HGB Conc 31 % (30-34); Mean Corpuscular Volume 74 fl (79-97); Red Blood Count 4.97 M/mm3 (3.65-5.03)
[2018-11-24 06:31] LABS: Hemoglobin 11.3 gm/dl (10.1-14.3); Red Cell Distribution Width 20.8 % (13.2-15.2)
[2018-11-24 06:35] LABS: Lymphocytes # (Auto) 0.3 K/mm3 (1.2-5.4); Lymphocytes % (Auto) 2.3 % (13.4-35.0); Monocytes % (Auto) 5.1 % (0.0-7.3)
[2018-11-24 06:59] LABS: BUN/Creatinine Ratio 40; Blood Urea Nitrogen 12 mg/dL (7-17); Calcium 8.4 mg/dL (8.4-10.2); Hemolysis Index 0
--- NOTE | 2018-11-24 07:34 | Vascular Lab Report ---
DUPLEX DOPPLER LOWER EXTREMITY VEINS, BILATERAL INDICATION / CLINICAL INFORMATION: swelling. TECHNIQUE: Duplex doppler imaging was performed through the veins of both lower extremities using venous brenard meredith and other maneuvers. COMPARISON: None available. FINDINGS: Right Common Femoral vein: Negative. Right Femoral vein: Negative. Right Popliteal vein: Negative. Right Calf veins: Negative. Left Common Femoral vein: Negative. Left Femoral vein: Negative. Left Popliteal vein: Negative. Left Calf veins: The left peroneal vein is not visualized. No evidence of DVT in the left posterior t ibial vein. Additional findings: None. IMPRESSION: 1. No sonographic evidence for DVT in either lower extremity. Signer Name: Mary Barragan MD Signed: 11/24/2018 7:29 AM Workstation Name: [id number]
[2018-11-24 07:45] LABS: Basophils % (Manual) 0 % (0.0-1.8); Eosinophils % (Manual) 0 % (0.0-4.3); Myelocytes # (Manual) 0.3 K/mm3; Total Cells Counted 100
[2018-11-24 08:13] LABS: Anisocytosis 1+
[2018-11-24 08:14] LABS: Giant Platelets Rare; Hypochromasia 1+; Platelet Estimate Consistent w Auto
[2018-11-24] MEDS: INSULIN LISPRO 100 UNIT/ML SUB-Q SCH ×4 (08:59→22:00)
[2018-11-24] MEDS: VENLAFAXINE 25 MG TAB PO SCH ×3 (09:18→21:16)
[2018-11-24 09:34] LABS: Platelet Count 118 K/mm3 (140-440)
[2018-11-24] MEDS: ARFORMOTEROL 15 MCG/2 ML NEBU IH SCH ×2 (10:27→20:21)
[2018-11-24] MEDS: BUDESONIDE 0.5 MG/2 ML NEBU IH SCH ×2 (10:27→20:10)
[2018-11-24] MEDS: IPRATROPIUM/ALBUTEROL SULFATE 3 ML AMPUL.NEB IH SCH ×2 (10:31→20:28)
[2018-11-24] MEDS: BACLOFEN 10 MG TAB PO SCH ×2 (11:05→21:17)
[2018-11-24] MEDS: FAMOTIDINE 20 MG TAB PO SCH ×2 (11:05→21:16)
[2018-11-24] MEDS: QUEtiapine 100 MG TAB PO SCH ×2 (11:05→21:17)
[2018-11-24] MEDS: NICOTINE 14 MG/24 HR PATCH TD SCH (11:06)
[2018-11-24] MEDS: LINEZOLID 600 MG TAB PO SCH ×2 (13:40→21:16)
[2018-11-24] MEDS: TAMSULOSIN 0.4 MG CAP PO SCH (13:41)
--- NOTE | 2018-11-24 15:32 | Progress Note ---
Assessment and Plan Cultures: Blood culture 11/14/2018 no growth today. Tracheal aspirated 11/14/2018 MRSA VITO=2 Tracheal aspirated 11/17/2018 pending Assessment: 58 y/o female with history of tobacco abuse, COPD with chronic respiratory failure on home oxygen known to our service in May 2018 with septic shock and MDR-Pseudomonas/Ecoli pneumonia, admitted on 11/14/2018 due to worsening SOB: 1) Sepsis: fever resolved x 48h; source is LLL pneumonia. CT chest showed LLL pneumonia with minimal emma effusions, no loculation or abscess. Tracheal asp on 11/14 MRSA VITO=2. Recent history of MDR Pseudomonas pneumonia; CXR with mild left basilar pleuroparietal disease, mild diffuse interstitial lung disease. During May 2018 admission she was treated with levaquin for 10 days as the Pseudomonas was resistant to cefepime, zosyn and sensitive to quinolones. Blood culture 11/14/2018 no growth today. 2) Chronic respiratory failure: intubated. 3) COPD exacerbation with pneumonia. Recommendations: cotninue linezolid 600 mg IV q 12 hours with careful platelet monitoring - platelets down to 80k on vanco (now 118k) monitor fever linezolid duration total 7 days Will follow. Shukri Malone MD [facility] M: [phone] O: [phone] F: [phone] Subjective Date of service: 11/24/18 Principal diagnosis: Ac and ch hypoxic hypercapnic resp failure; AE-COPD; Tobacco use disorder Interval history: Afebrile with elevated white count. no new issues. Objective - Exam Narrative Exam: General appearance: Alert in NAD Eyes: anicteric sclerae, moist conjunctivae; no lid-lag; PERRLA HENT: Atraumatic; oropharynx +ETT +OGT Lungs: emma rhonchi CV: RRR no murmur Abdomen: Soft, non-tender; no masses or hepatosplenomegaly Extremities: no edema, no cyanosis Skin: multiple emma arms ecchymoses Psych: no agitated Neuro: Moves spontaneously. - Constitutional Vitals: Vital Signs Temp Pulse Resp BP Pulse Ox 97.8 F 125 H 20 97/32 87 11/24/18 11:54 11/24/18 11:54 11/24/18 11:54 11/24/18 11:54 11/24/18 11:54 Temperature -Last 24 Hours Temperature 97.8 F Temperature 98.3 F Temperature 99.3 F Temperature 98.4 F Temperature 97.9 F - Labs CBC & Chem 7: 11/24/18 05:57 11/24/18 05:57 Labs: Abnormal lab results 11/22/18 11/23/18 11/23/18 Range/Units 12:58 11:35 16:07 WBC (4.5-11.0) K/mm3 MCV (79-97) fl MCH (28-32) pg RDW (13.2-15.2) % Plt Count (140-440) K/mm3 Lymph % (Auto) (13.4-35.0) % Lymph # (1.2-5.4) K/mm3 Seg Neuts % (Manual) (40.0-70.0) % Lymphocytes % (Manual) (13.4-35.0) % Seg Neutrophils # (1.8-7.7) K/mm3 Seg Neutrophils # Man (1.8-7.7) K/mm3 Lymphocytes # (Manual) (1.2-5.4) K/mm3 Carbon Dioxide (22-30) mmol/L Creatinine (0.7-1.2) mg/dL Glucose (65-100) mg/dL POC Glucose 108 H 123 H 117 H (70-105) 11/23/18 11/24/18 11/24/18 Range/Units 21:54 05:57 05:57 WBC 14.7 H (4.5-11.0) K/mm3 MCV 74 L (79-97) fl MCH 23 L (28-32) pg RDW 20.8 H (13.2-15.2) % Plt Count 118 L (140-440) K/mm3 Lymph % (Auto) 2.3 L (13.4-35.0) % Lymph # 0.3 L (1.2-5.4) K/mm3 Seg Neuts % (Manual) 96.0 H (40.0-70.0) % Lymphocytes % (Manual) 0 L (13.4-35.0) % Seg Neutrophils # 13.4 H (1.8-7.7) K/mm3 Seg Neutrophils # Man 14.1 H (1.8-7.7) K/mm3 Lymphocytes # (Manual) 0.0 L (1.2-5.4) K/mm3 Carbon Dioxide 32 H (22-30) mmol/L Creatinine 0.3 L (0.7-1.2) mg/dL Glucose 111 H (65-100) mg/dL POC Glucose 163 H (70-105) 11/24/18 Range/Units 11:32 WBC (4.5-11.0) K/mm3 MCV (79-97) fl MCH (28-32) pg RDW (13.2-15.2) % Plt Count (140-440) K/mm3 Lymph % (Auto) (13.4-35.0) % Lymph # (1.2-5.4) K/mm3 Seg Neuts % (Manual) (40.0-70.0) % Lymphocytes % (Manual) (13.4-35.0) % Seg Neutrophils # (1.8-7.7) K/mm3 Seg Neutrophils # Man (1.8-7.7) K/mm3 Lymphocytes # (Manual) (1.2-5.4) K/mm3 Carbon Dioxide (22-30) mmol/L Creatinine (0.7-1.2) mg/dL Glucose (65-100) mg/dL POC Glucose 113 H (70-105)
--- NOTE | 2018-11-24 17:27 | Progress Note ---
Assessment and Plan Assessment and plan: 58 y/o female patient with hx of COPD who presented to the ED via EMS on account of worsening sob. Apparently, the patient called 911 for shortness of breath. Per, EMS, he was noted to be saturating in the 60's in the field. She was given albuterol, steroids, and magnesium in the field. On arrival to the ED, the patient was altered, She was emergently intubated and placed on MV. Patient also has sepsis secondary to pneumonia, evaluated by pulmonary critical, tracheal aspirate MRSA ,on linezolid per ID Today patient is more alert and awake responding to simple questions appropriately Extubated on 11/22/18 at 5 pm --Anxiety: low dose Xanax,supportive care --Acute on chronic combined respiratory failure requiring intubation: s/pextubation ,on ventimask 35% 02 sats > 94% antibiotics per ID. Nebulizes steroids pulmonology following --End-stage COPD; acute exacerbation with chronic hypoxia treat with iv steriods continue taper, abx, nebs around the clock -- Sepsis/pneumonia, tracheal aspirate MRSA;cont linezolid, per ID Contact isolation --Hypernatremia, resolved --Malignant HTN (hypertension).; Well controlled Continue current antihypertensives and when necessary hydralazine --Sinus tachycardia; probably secondary to agitation Supportive care --Nicotine dependence; nicotine patch when necessary. --Thrombocytopenia Remains below 100, stable no active bleeding.Hematology following --DVt Px; SCDs No pharmacologic anticoagulation in view of thrombocytopenia --Full code --Nutrition: bed side swallow/speech and swallow Diet as tolerated Patient may be transferred out of ICU if OK with pulm. The high probability of a clinically significant, sudden or life threatening deterioration of the [multiple] system(s) required my full and direct attention, intervention and personal management. The aggregate critical care time was [31] minutes. This time is in addition to time spent performing reported procedures but includes the following: [x] Data Review and interpretation [x] Patient assessment and monitoring of vital signs [x] Documentation [x] Medication orders and management History Interval history: Patient seen and examined medical records reviewed Patient is confused requiring restraints Not in acute distress Vital signs noted Hospitalist Physical - Constitutional Vitals: Temp Pulse Resp BP Pulse Ox 97.8 F 125 H 20 97/32 87 11/24/18 11:54 11/24/18 11:54 11/24/18 11:54 11/24/18 11:54 11/24/18 11:54 General appearance: Present: no acute distress, well-nourished, obese, disheveled, other (confused) - EENT Eyes: Present: PERRL, EOM intact - Neck Neck: Present: supple, normal ROM - Respiratory Respiratory effort: normal Respiratory: bilateral: diminished, rhonchi, negative: rales, wheezing - Cardiovascular Rhythm: regular Heart Sounds: Present: S1 & S2 - Extremities Extremities: no ischemia, No edema - Abdominal General gastrointestinal: soft, non-tender, non-distended, normal bowel sounds - Integumentary Integumentary: Present: clear, warm - Psychiatric Psychiatric: appropriate mood/affect, cooperative - Neurologic Neurologic: CNII-XII intact, moves all extremities Results - Labs CBC & Chem 7: 11/24/18 05:57 11/24/18 05:57 Labs: Laboratory Last Values WBC 14.7 K/mm3 (4.5-11.0) H 11/24/18 05:57 RBC 4.97 M/mm3 (3.65-5.03) 11/24/18 05:57 Hgb 11.3 gm/dl (10.1-14.3) 11/24/18 05:57 Hct 37.0 % (30.3-42.9) 11/24/18 05:57 MCV 74 fl (79-97) L 11/24/18 05:57 MCH 23 pg (28-32) L 11/24/18 05:57 MCHC 31 % (30-34) 11/24/18 05:57 RDW 20.8 % (13.2-15.2) H 11/24/18 05:57 Plt Count 118 K/mm3 (140-440) L 11/24/18 05:57 Lymph % (Auto) 2.3 % (13.4-35.0) L 11/24/18 05:57 Lewis % (Auto) 5.1 % (0.0-7.3) 11/24/18 05:57 Eos % (Auto) 0.0 % (0.0-4.3) 11/22/18 04:18 Baso % (Auto) 0.3 % (0.0-1.8) 11/22/18 04:18 Lymph # 0.3 K/mm3 (1.2-5.4) L 11/24/18 05:57 Lewis # 0.6 K/mm3 (0.0-0.8) 11/22/18 04:18 Eos # 0.0 K/mm3 (0.0-0.4) 11/22/18 04:18 Baso # 0.0 K/mm3 (0.0-0.1) 11/22/18 04:18 Add Manual Diff Complete 11/24/18 05:57 Total Counted 100 11/24/18 05:57 Seg Neutrophils % Automatic Bandsaw Tender 11/24/18 05:57 Seg Neuts % (Manual) 96.0 % (40.0-70.0) H 11/24/18 05:57 Band Neutrophils % 0 % 11/24/18 05:57 Lymphocytes % (Manual) 0 % (13.4-35.0) L 11/24/18 05:57 Reactive Lymphs % (Man) 0 % 11/24/18 05:57 Monocytes % (Manual) 2.0 % (0.0-7.3) 11/24/18 05:57 Eosinophils % (Manual) 0 % (0.0-4.3) 11/24/18 05:57 Basophils % (Manual) 0 % (0.0-1.8) 11/24/18 05:57 Metamyelocytes % 0 % 11/24/18 05:57 Myelocytes % 2.0 % 11/24/18 05:57 Promyelocytes % 0 % 11/24/18 05:57 Blast Cells % 0 % 11/24/18 05:57 Nucleated RBC % Not Reportable 11/24/18 05:57 Seg Neutrophils # 13.4 K/mm3 (1.8-7.7) H 11/24/18 05:57 Seg Neutrophils # Man 14.1 K/mm3 (1.8-7.7) H 11/24/18 05:57 Band Neutrophils # 0.0 K/mm3 11/24/18 05:57 Lymphocytes # (Manual) 0.0 K/mm3 (1.2-5.4) L 11/24/18 05:57 Abs React Lymphs (Man) 0.0 K/mm3 11/24/18 05:57 Monocytes # (Manual) 0.3 K/mm3 (0.0-0.8) 11/24/18 05:57 Eosinophils # (Manual) 0.0 K/mm3 (0.0-0.4) 11/24/18 05:57 Basophils # (Manual) 0.0 K/mm3 (0.0-0.1) 11/24/18 05:57 Metamyelocytes # 0.0 K/mm3 11/24/18 05:57 Myelocytes # 0.3 K/mm3 11/24/18 05:57 Promyelocytes # 0.0 K/mm3 11/24/18 05:57 Blast Cells # 0.0 K/mm3 11/24/18 05:57 WBC Morphology Not Reportable 11/24/18 05:57 Hypersegmented Neuts Not Reportable 11/24/18 05:57 Hyposegmented Neuts Not Reportable 11/24/18 05:57 Hypogranular Neuts Not Reportable 11/24/18 05:57 Smudge Cells Not Reportable 11/24/18 05:57 Toxic Granulation Not Reportable 11/24/18 05:57 Toxic Vacuolation Not Reportable 11/24/18 05:57 Dohle Bodies Not Reportable 11/24/18 05:57 Pelger-Huet Anomaly Not Reportable 11/24/18 05:57 Neha Rods Not Reportable 11/24/18 05:57 Platelet Estimate Consistent w auto 11/24/18 05:57 Clumped Platelets Not Reportable 11/24/18 05:57 Plt Clumps, EDTA Not Reportable 11/24/18 05:57 Large Platelets Not Reportable 11/24/18 05:57 Giant Platelets Rare 11/24/18 05:57 Platelet Satelliting Not Reportable 11/24/18 05:57 Plt Morphology Comment Not Reportable 11/24/18 05:57 RBC Morphology Not Reportable 11/24/18 05:57 Dimorphic RBCs Not Reportable 11/24/18 05:57 Polychromasia Not Reportable 11/24/18 05:57 Hypochromasia 1+ 11/24/18 05:57 Poikilocytosis Not Reportable 11/24/18 05:57 Anisocytosis 1+ 11/24/18 05:57 Microcytosis Not Reportable 11/24/18 05:57 Macrocytosis Not Reportable 11/24/18 05:57 Spherocytes Not Reportable 11/24/18 05:57 Pappenheimer Bodies Not Reportable 11/24/18 05:57 Sickle Cells Not Reportable 11/24/18 05:57 Target Cells Not Reportable 11/24/18 05:57 Tear Drop Cells Not Reportable 11/24/18 05:57 Ovalocytes Not Reportable 11/24/18 05:57 Helmet Cells Not Reportable 11/24/18 05:57 [place] Bodies Not Reportable 11/24/18 05:57 [place] Rings Not Reportable 11/24/18 05:57 Damien Cells Not Reportable 11/24/18 05:57 Bite Cells Not Reportable 11/24/18 05:57 Crenated Cell Not Reportable 11/24/18 05:57 Elliptocytes Not Reportable 11/24/18 05:57 Acanthocytes (Spur) Not Reportable 11/24/18 05:57 Rouleaux Not Reportable 11/24/18 05:57 Hemoglobin C Crystals Not Reportable 11/24/18 05:57 Schistocytes Not Reportable 11/24/18 05:57 Malaria parasites Not Reportable 11/24/18 05:57 Hernan Bodies Not Reportable 11/24/18 05:57 Hem Pathologist Commnt No 11/24/18 05:57 PT 14.1 Sec. (12.2-14.9) 11/14/18 19:39 INR 1.12 (0.87-1.13) 11/14/18 19:39 POC ABG pH 7.488 (7.35-7.45) H 11/22/18 14:54 ABG pH 7.247 pH Units (7.350-7.450) L 11/16/18 05:10 POC ABG pCO2 48.1 (35-45) H 11/22/18 14:54 ABG pCO2 64.0 mm Hg 11/16/18 05:10 POC ABG pO2 69 (80-105) L 11/22/18 14:54 ABG pO2 65.7 mm Hg (80.0-90.0) L 11/16/18 05:10 POC ABG HCO3 36.5 (22-26 mml/L) 11/22/18 14:54 ABG HCO3 27.3 mmol/L (20.0-26.0) H 11/16/18 05:10 POC ABG Total CO2 38 (23-27mmol/L) 11/22/18 14:54 POC ABG O2 Sat 95 11/22/18 14:54 ABG O2 Saturation 89.9 % (95.0-99.0) L 11/16/18 05:10 ABG O2 Content 13.0 (0.0-44) 11/16/18 05:10 POC ABG Base Excess 13 ((-2) - (+3)mmol/L) 11/22/18 14:54 ABG Base Excess -0.9 mmol/L (-2.0-3.0) 11/16/18 05:10 ABG Hemoglobin 10.5 gm/dl (12.0-16.0) L 11/16/18 05:10 ABG Carboxyhemoglobin 1.7 % (0.0-5.0) 11/16/18 05:10 ABG Methemoglobin 0.5 % (0.0-1.5) 11/16/18 05:10 Oxyhemoglobin 87.9 % (95.0-99.0) L 11/16/18 05:10 FiO2 50 % 11/22/18 14:54 Sodium 143 mmol/L (137-145) 11/24/18 05:57 Potassium 3.9 mmol/L (3.6-5.0) 11/24/18 05:57 Chloride 103.1 mmol/L (98-107) 11/24/18 05:57 Carbon Dioxide 32 mmol/L (22-30) H 11/24/18 05:57 Anion Gap 12 mmol/L 11/24/18 05:57 BUN 12 mg/dL (7-17) 11/24/18 05:57 Creatinine 0.3 mg/dL (0.7-1.2) L 11/24/18 05:57 Estimated GFR > 60 ml/min 11/24/18 05:57 BUN/Creatinine Ratio 40 % 11/24/18 05:57 Glucose 111 mg/dL (65-100) H 11/24/18 05:57 POC Glucose 121 (70-105) H 11/24/18 16:35 Lactic Acid 1.00 mmol/L (0.7-2.0) 11/19/18 15:47 Calcium 8.4 mg/dL (8.4-10.2) 11/24/18 05:57 Magnesium 2.20 mg/dL (1.7-2.3) 11/21/18 04:38 Total Bilirubin 0.20 mg/dL (0.1-1.2) 11/14/18 19:39 AST 13 units/L (5-40) 11/14/18 19:39 ALT 6 units/L (7-56) L 11/14/18 19:39 Alkaline Phosphatase 85 units/L (35-129) 11/14/18 19:39 Troponin T < 0.010 ng/mL (0.00-0.029) 11/15/18 04:20 C-Reactive Protein 0.00 mg/dL (0.00-1.30) 11/19/18 15:47 Total Protein 6.2 g/dL (6.3-8.2) L 11/14/18 19:39 Albumin 3.4 g/dL (3.9-5) L 11/14/18 19:39 Albumin/Globulin Ratio 1.2 % 11/14/18 19:39 Urine Color Yellow (Yellow) 11/14/18 20:29 Urine Turbidity Clear (Clear) 11/14/18 20:29 Urine pH 5.0 (5.0-7.0) 11/14/18 20:29 Ur Specific [place] 1.026 (1.003-1.030) 11/14/18 20:29 Urine Protein 100 mg/dl mg/dL (Negative) 11/14/18 20:29 Urine Glucose (UA) Neg mg/dL (Negative) 11/14/18 20:29 Urine Ketones Neg mg/dL (Negative) 11/14/18 20:29 Urine Blood Sm (Negative) 11/14/18 20:29 Urine Nitrite Neg (Negative) 11/14/18 20:29 Urine Bilirubin Neg (Negative) 11/14/18 20:29 Urine Urobilinogen < 2.0 mg/dL (<2.0) 11/14/18 20:29 Ur Leukocyte Esterase Neg (Negative) 11/14/18 20:29 Urine WBC (Auto) 6.0 /HPF (0.0-6.0) 11/14/18 20:29 Urine RBC (Auto) 16.0 /HPF (0.0-6.0) 11/14/18 20:29 U Epithel Cells (Auto) 1.0 /HPF (0-13.0) 11/14/18 20:29 Urine Bacteria (Auto) 1+ /HPF (Negative) 11/14/18 20:29 Hyaline Casts 36 /LPF 11/14/18 20:29 Urine Mucus 1+ /HPF 11/14/18 20:29 Vancomycin Trough 12.1 ug/mL (5.0-20.0) 11/19/18 09:25 Active Medications - Current Medications Current Medications: Generic Name Dose Route Start Last Admin Trade Name Freq PRN Reason Stop Dose Admin Acetaminophen 650 mg 11/14/18 22:11 11/19/18 12:00 Tylenol PO 650 mg Q4H PRN Administration Pain MILD(1-3)/Fever >100.5/PRAJAPATI Albuterol 2.5 mg 11/19/18 13:00 Proventil IH Q4HRT PRN Shortness Of Breath Albuterol/Ipratropium 1 ampul 11/23/18 20:00 11/24/18 10:31 Duoneb *Not For Prn Use* IH 1 ampul Q12HRT DOMINICK Administration Alprazolam 0.25 mg 11/23/18 08:02 Xanax PO Q8H PRN Anxiety Arformoterol Tartrate 15 mcg 11/19/18 20:00 11/24/18 10:27 Brovana Nebu IH 15 mcg Q12HRT DOMINICK Administration Baclofen 10 mg 11/16/18 11:00 11/24/18 11:05 Lioresal PO 10 mg BID DOMINICK Administration Budesonide 0.5 mg 11/19/18 20:00 11/24/18 10:27 Pulmicort IH 0.5 mg Q12HRT DOMINICK Administration Famotidine 20 mg 11/16/18 10:00 11/24/18 11:05 Pepcid PO 20 mg BID DOMINICK Administration Hydralazine HCl 10 mg 11/20/18 08:30 Apresoline IV Q4HR PRN Hypertension Hydrophilic Ointment 1 applic 11/14/18 19:14 Vaseline Lip Therapy TP Q2HR PRN Dry Lips Insulin Human Lispro 0 unit 11/23/18 11:30 11/24/18 12:43 Humalog SUB-Q Not Given ACHS [facility] Protocol Linezolid 600 mg 11/23/18 10:00 11/24/18 13:40 Zyvox PO 11/27/18 23:59 600 mg BID DOMINICK Administration Lorazepam 1 mg 11/20/18 08:15 11/23/18 20:02 Ativan IV 1 mg Q4HR PRN Administration Agitation Methylprednisolone Sodium Succinate 60 mg 11/15/18 22:00 11/24/18 13:41 Solu-Medrol IV 60 mg Q8HR DOMINICK Administration Multi-Ingred Cream/Lotion/Oil/Oint 1 applic 11/14/18 19:14 Artificial Tears Ophth Oint OU Q4HR PRN Dry Eye(s) Nicotine 14 mg 11/15/18 16:00 11/24/18 11:06 Habitrol TD 14 mg QDAY DOMINICK Administration Ondansetron HCl 4 mg 11/14/18 22:11 Zofran IV Q8H PRN Nausea And Vomiting Quetiapine Fumarate 300 mg 11/20/18 13:17 11/24/18 11:05 Seroquel PO 300 mg BID DOMINICK Administration Sodium Chloride 10 ml 11/15/18 10:00 11/24/18 11:06 Sodium Chloride Flush Syringe 10 Ml IV 10 ml BID DOMINICK Administration Sodium Chloride 10 ml 11/14/18 22:11 11/21/18 05:38 Sodium Chloride Flush Syringe 10 Ml IV 10 ml PRN PRN Administration LINE FLUSH Tamsulosin HCl 0.4 mg 11/19/18 13:00 11/24/18 13:41 Flomax PO 0.4 mg QDAY DOMINICK Administration Venlafaxine HCl 100 mg 11/16/18 14:00 11/24/18 13:40 Effexor PO 100 mg TID DOMINICK Administration Nutrition/Malnutrition Assess - Dietary Evaluation Nutrition/Malnutrition Findings: Nutrition Notes Start: 11/16/18 08:00 Freq: Status: Active Protocol: Document 11/20/18 12:43 NASRA (Rec: 11/20/18 13:47 NASRA [email or web address]) Co-Sign 11/20/18 12:43 LP Nutrition Notes Initial or Follow up Reassessment Current Diagnosis COPD,Coronary Artery Disease, Hypertension Other Pertinent Diagnosis Nicotine dependence Current Diet Vital AF 1.2 at 55ml/hr Labs/Tests Na 151 Cl 109 CO2 33 BUN 18 Cr 0.3 Gluc 146 Pertinent Medications Solumedrol Height 5 ft 2 in Weight 75.9 kg [place] Body Weight (kg) 50.00 BMI 30.6 Subjective/Other Information TF running at goal. Per RN pt is tolerating TF Percent of energy/protein needs met: 100%/99% Burn Absent Trauma Absent Minimum of two criteria No #1 Nutrition Diagnosis Inadequate oral intake Diagnosis Progress(for reassessment Continues documentation) Is patient on ventilator? Yes Is Patient Ambulatory and/or Out of Bed No REE-([facility]-confined to bed) 1543.548 Calculation Used for Recommendations [facility] Additional Notes Protein: 100g (>2g/kg IBW 50kg ) Fluid: 1ml/kcal Nutrition Intervention Change Diet Order: Continue current Nutrition Support: Vital AF 1.2 at 55 ml/hr Increase water flush 200 ml q4hr for hypernatremia Kcal 1,584 Protein (gm) 99 Fluid (mL) 1,071 Goal #1 Meet at least 75% energy and protein needs Anticipated Discharge Needs: Unable to determine at this time Follow-Up By: 11/25/18 Additional Comments F/U for TF rate
--- NOTE | 2018-11-24 17:30 | Progress Note ---
Assessment and Plan Patient awake and resting on 4 litres O2. O2 saturation 98%. Patient confused. No acute respiratory distress. Patient afebrile but has leukocytosis. - Patient Problems (1) Acute and chronic respiratory failure Current Visit: No Status: Acute Plan to address problem: O2 4 litres via nasal canula. Albuterol/atrovent aerosol treatments q 6 hours. Continue I/V solumedrol. Continue Zyvox. Continue famotidine. Recommend DVT prophylaxis.SCDs (2) Acute exacerbation of chronic obstructive pulmonary disease (COPD) Current Visit: No Status: Acute Plan to address problem: O2 4 litres via nasal canula. Albuterol/atrovent aerosol treatments q 6 hours. Continue I/V solumedrol. Continue Zyvox. Continue famotidine. Recommend DVT prophylaxis. SCDs (3) Depression Current Visit: No Status: Chronic Qualifiers: Depression Type: unspecified Qualified Code(s): F32.9 - Major depressive disorder, single episode, unspecified Plan to address problem: Management as per primary care Subjective Date of service: 11/24/18 Principal diagnosis: Ac and ch hypoxic hypercapnic resp failure; AE-COPD; Tobacco use disorder Interval history: Patient awake and resting on 4 litres O2. O2 saturation 98%. Patient confused. No acute respiratory distress. Patient afebrile but has leukocytosis. Objective Vital Signs - 12hr 11/24/18 11/24/18 11/24/18 05:45 05:46 10:33 Temperature 99.3 F 98.3 F Pulse Rate 109 H Pulse Rate [ 74 Anterior Bilateral] Pulse Rate [ 68 Bilateral Bases ] Respiratory 24 24 Rate Respiratory 18 Rate [Anterior Bilateral] Respiratory 18 Rate [Bilateral Bases] Blood Pressure 177/86 O2 Sat by Pulse 73 L Oximetry 11/24/18 11/24/18 10:39 11:54 Temperature 97.8 F Pulse Rate 125 H Pulse Rate [ Anterior Bilateral] Pulse Rate [ Bilateral Bases ] Respiratory 20 Rate Respiratory Rate [Anterior Bilateral] Respiratory Rate [Bilateral Bases] Blood Pressure 97/32 O2 Sat by Pulse 98 87 Oximetry Constitutional: agitated, appears uncomfortable Eyes: non-icteric ENT: oropharynx moist, other (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) Neck: supple, no lymphadenopathy, no JVD, other (large neck circumference) Effort: mildly labored Ascultation: Bilateral: diminished breath sounds, rhonchi Percussion: Bilateral: not dull Cardiovascular: regular rate and rhythm Gastrointestinal: normoactive bowel sounds, soft, non-tender, non-distended Integumentary: normal Extremities: no cyanosis, no edema, pink and warm, pulses normal Neurologic: non-focal exam (grossly), pupils equal and round, motor strength normal and, other (agitated) Psychiatric: other (unable to assess) CBC and BMP: 11/24/18 05:57 11/24/18 05:57 ABG, PT/INR, D-dimer: ABG POC ABG pH 7.488 (7.35-7.45) H 11/22/18 14:54 ABG pH 7.247 pH Units (7.350-7.450) L 11/16/18 05:10 POC ABG pCO2 48.1 (35-45) H 11/22/18 14:54 ABG pCO2 64.0 mm Hg 11/16/18 05:10 POC ABG pO2 69 (80-105) L 11/22/18 14:54 ABG pO2 65.7 mm Hg (80.0-90.0) L 11/16/18 05:10 POC ABG HCO3 36.5 (22-26 mml/L) 11/22/18 14:54 POC ABG Total CO2 38 (23-27mmol/L) 11/22/18 14:54 POC ABG O2 Sat 95 11/22/18 14:54 ABG O2 Saturation 89.9 % (95.0-99.0) L 11/16/18 05:10 PT/INR, D-dimer PT 14.1 Sec. (12.2-14.9) 11/14/18 19:39 INR 1.12 (0.87-1.13) 11/14/18 19:39 Abnormal lab findings: Abnormal Labs 11/14/18 11/14/18 11/14/18 18:59 19:39 19:39 WBC RBC 5.30 H MCV MCH 23 L MCHC 29 L RDW 20.5 H Plt Count 132 L Lymph % (Auto) 7.2 L Lymph # 0.6 L Seg Neutrophils % 87.1 H Seg Neuts % (Manual) Lymphocytes % (Manual) Seg Neutrophils # Seg Neutrophils # Man Lymphocytes # (Manual) POC ABG pH ABG pH POC ABG pCO2 POC ABG pO2 ABG pO2 ABG HCO3 ABG O2 Saturation ABG Base Excess ABG Hemoglobin ABG Carboxyhemoglobin Oxyhemoglobin Sodium 147 H Potassium Chloride Carbon Dioxide 35 H BUN Creatinine 0.4 L Glucose 121 H POC Glucose 129 H Calcium ALT 6 L Total Protein 6.2 L Albumin 3.4 L 11/14/18 11/15/18 11/15/18 20:45 04:20 04:20 WBC RBC 5.36 H MCV 78 L MCH 22 L MCHC 28 L RDW 20.5 H Plt Count 124 L Lymph % (Auto) Lymph # Seg Neutrophils % Seg Neuts % (Manual) 92.0 H Lymphocytes % (Manual) 6.0 L Seg Neutrophils # Seg Neutrophils # Man Lymphocytes # (Manual) 0.4 L POC ABG pH ABG pH 7.346 L POC ABG pCO2 POC ABG pO2 ABG pO2 ABG HCO3 32.4 H ABG O2 Saturation ABG Base Excess 5.3 H ABG Hemoglobin 11.0 L ABG Carboxyhemoglobin 6.4 H Oxyhemoglobin 90.0 L Sodium 146 H Potassium Chloride 107.6 H Carbon Dioxide BUN Creatinine 0.4 L Glucose 132 H POC Glucose Calcium 8.1 L ALT Total Protein Albumin 11/15/18 11/15/18 11/15/18 06:18 12:36 18:06 WBC RBC MCV MCH MCHC RDW Plt Count Lymph % (Auto) Lymph # Seg Neutrophils % Seg Neuts % (Manual) Lymphocytes % (Manual) Seg Neutrophils # Seg Neutrophils # Man Lymphocytes # (Manual) POC ABG pH 7.291 L ABG pH POC ABG pCO2 65.4 H POC ABG pO2 65 L ABG pO2 ABG HCO3 ABG O2 Saturation ABG Base Excess ABG Hemoglobin ABG Carboxyhemoglobin Oxyhemoglobin Sodium Potassium Chloride Carbon Dioxide BUN Creatinine Glucose POC Glucose 149 H 171 H Calcium ALT Total Protein Albumin 11/15/18 11/16/18 11/16/18 23:42 00:11 00:11 WBC 11.2 H RBC MCV 77 L MCH 22 L MCHC 28 L RDW 21.3 H Plt Count 136 L Lymph % (Auto) Lymph # Seg Neutrophils % Seg Neuts % (Manual) 89.0 H Lymphocytes % (Manual) 6.0 L Seg Neutrophils # Seg Neutrophils # Man 10.0 H Lymphocytes # (Manual) 0.7 L POC ABG pH ABG pH POC ABG pCO2 POC ABG pO2 ABG pO2 ABG HCO3 ABG O2 Saturation ABG Base Excess ABG Hemoglobin ABG Carboxyhemoglobin Oxyhemoglobin Sodium Potassium 5.4 H D Chloride 109.5 H Carbon Dioxide BUN 18 H Creatinine 0.5 L Glucose 118 H POC Glucose 134 H Calcium ALT Total Protein Albumin 11/16/18 11/16/18 11/16/18 05:10 06:55 12:22 WBC RBC MCV MCH MCHC RDW Plt Count Lymph % (Auto) Lymph # Seg Neutrophils % Seg Neuts % (Manual) Lymphocytes % (Manual) Seg Neutrophils # Seg Neutrophils # Man Lymphocytes # (Manual) POC ABG pH ABG pH 7.247 L POC ABG pCO2 POC ABG pO2 ABG pO2 65.7 L ABG HCO3 27.3 H ABG O2 Saturation 89.9 L ABG Base Excess ABG Hemoglobin 10.5 L ABG Carboxyhemoglobin Oxyhemoglobin 87.9 L Sodium Potassium Chloride Carbon Dioxide BUN Creatinine Glucose POC Glucose 116 H 106 H Calcium ALT Total Protein Albumin 11/16/18 11/17/18 11/17/18 18:04 04:56 09:26 WBC 15.1 H RBC MCV 77 L MCH 22 L MCHC 28 L RDW 20.4 H Plt Count 134 L Lymph % (Auto) Lymph # Seg Neutrophils % Seg Neuts % (Manual) Lymphocytes % (Manual) Seg Neutrophils # Seg Neutrophils # Man Lymphocytes # (Manual) POC ABG pH 7.335 L ABG pH POC ABG pCO2 58.2 H POC ABG pO2 74 L ABG pO2 ABG HCO3 ABG O2 Saturation ABG Base Excess ABG Hemoglobin ABG Carboxyhemoglobin Oxyhemoglobin Sodium Potassium Chloride Carbon Dioxide BUN Creatinine Glucose POC Glucose 117 H Calcium ALT Total Protein Albumin 11/17/18 11/17/18 11/17/18 09:26 18:03 23:49 WBC RBC MCV MCH MCHC RDW Plt Count Lymph % (Auto) Lymph # Seg Neutrophils % Seg Neuts % (Manual) Lymphocytes % (Manual) Seg Neutrophils # Seg Neutrophils # Man Lymphocytes # (Manual) POC ABG pH ABG pH POC ABG pCO2 POC ABG pO2 ABG pO2 ABG HCO3 ABG O2 Saturation ABG Base Excess ABG Hemoglobin ABG Carboxyhemoglobin Oxyhemoglobin Sodium 149 H Potassium Chloride 109.0 H Carbon Dioxide BUN 22 H Creatinine 0.4 L Glucose POC Glucose 128 H 129 H Calcium ALT Total Protein Albumin 11/18/18 11/18/18 11/18/18 04:00 06:15 09:35 WBC RBC MCV 76 L MCH 22 L MCHC 29 L RDW 20.3 H Plt Count 111 L Lymph % (Auto) Lymph # Seg Neutrophils % Seg Neuts % (Manual) Lymphocytes % (Manual) Seg Neutrophils # Seg Neutrophils # Man Lymphocytes # (Manual) POC ABG pH ABG pH POC ABG pCO2 54.2 H POC ABG pO2 62 L ABG pO2 ABG HCO3 ABG O2 Saturation ABG Base Excess ABG Hemoglobin ABG Carboxyhemoglobin Oxyhemoglobin Sodium Potassium Chloride Carbon Dioxide BUN Creatinine Glucose POC Glucose 144 H Calcium ALT Total Protein Albumin 11/18/18 11/18/18 11/18/18 09:35 12:23 18:21 WBC RBC MCV MCH MCHC RDW Plt Count Lymph % (Auto) Lymph # Seg Neutrophils % Seg Neuts % (Manual) Lymphocytes % (Manual) Seg Neutrophils # Seg Neutrophils # Man Lymphocytes # (Manual) POC ABG pH ABG pH POC ABG pCO2 POC ABG pO2 ABG pO2 ABG HCO3 ABG O2 Saturation ABG Base Excess ABG Hemoglobin ABG Carboxyhemoglobin Oxyhemoglobin Sodium 149 H Potassium Chloride 109.5 H Carbon Dioxide 31 H BUN 20 H Creatinine 0.4 L Glucose 137 H POC Glucose 140 H 160 H Calcium ALT Total Protein Albumin 11/18/18 11/19/18 11/19/18 23:55 04:12 05:41 WBC RBC MCV MCH MCHC RDW Plt Count Lymph % (Auto) Lymph # Seg Neutrophils % Seg Neuts % (Manual) Lymphocytes % (Manual) Seg Neutrophils # Seg Neutrophils # Man Lymphocytes # (Manual) POC ABG pH 7.345 L ABG pH POC ABG pCO2 64.9 H POC ABG pO2 69 L ABG pO2 ABG HCO3 ABG O2 Saturation ABG Base Excess ABG Hemoglobin ABG Carboxyhemoglobin Oxyhemoglobin Sodium Potassium Chloride Carbon Dioxide BUN Creatinine Glucose POC Glucose 151 H 145 H Calcium ALT Total Protein Albumin 11/19/18 11/19/18 11/19/18 09:25 11:25 17:55 WBC RBC MCV MCH MCHC RDW Plt Count Lymph % (Auto) Lymph # Seg Neutrophils % Seg Neuts % (Manual) Lymphocytes % (Manual) Seg Neutrophils # Seg Neutrophils # Man Lymphocytes # (Manual) POC ABG pH 7.346 L ABG pH POC ABG pCO2 65.3 H POC ABG pO2 71 L ABG pO2 ABG HCO3 ABG O2 Saturation ABG Base Excess ABG Hemoglobin ABG Carboxyhemoglobin Oxyhemoglobin Sodium 150 H Potassium Chloride 109.4 H Carbon Dioxide 32 H BUN 21 H Creatinine 0.3 L Glucose 149 H POC Glucose 160 H Calcium ALT Total Protein Albumin 11/19/18 11/19/18 11/20/18 17:58 23:15 04:06 WBC RBC MCV MCH MCHC RDW Plt Count Lymph % (Auto) Lymph # Seg Neutrophils % Seg Neuts % (Manual) Lymphocytes % (Manual) Seg Neutrophils # Seg Neutrophils # Man Lymphocytes # (Manual) POC ABG pH ABG pH POC ABG pCO2 55.6 H POC ABG pO2 66 L ABG pO2 ABG HCO3 ABG O2 Saturation ABG Base Excess ABG Hemoglobin ABG Carboxyhemoglobin Oxyhemoglobin Sodium Potassium Chloride Carbon Dioxide BUN Creatinine Glucose POC Glucose 171 H 156 H Calcium ALT Total Protein Albumin 11/20/18 11/20/18 11/20/18 04:39 04:39 05:14 WBC 12.0 H RBC MCV 76 L MCH 22 L MCHC 29 L RDW 19.7 H Plt Count 80 L Lymph % (Auto) Lymph # Seg Neutrophils % Seg Neuts % (Manual) Lymphocytes % (Manual) Seg Neutrophils # Seg Neutrophils # Man Lymphocytes # (Manual) POC ABG pH ABG pH POC ABG pCO2 POC ABG pO2 ABG pO2 ABG HCO3 ABG O2 Saturation ABG Base Excess ABG Hemoglobin ABG Carboxyhemoglobin Oxyhemoglobin Sodium 151 H Potassium Chloride 109.0 H Carbon Dioxide 33 H BUN 18 H Creatinine 0.3 L Glucose 146 H POC Glucose 137 H Calcium ALT Total Protein Albumin 11/20/18 11/20/18 11/20/18 12:28 17:24 23:37 WBC RBC MCV MCH MCHC RDW Plt Count Lymph % (Auto) Lymph # Seg Neutrophils % Seg Neuts % (Manual) Lymphocytes % (Manual) Seg Neutrophils # Seg Neutrophils # Man Lymphocytes # (Manual) POC ABG pH ABG pH POC ABG pCO2 POC ABG pO2 ABG pO2 ABG HCO3 ABG O2 Saturation ABG Base Excess ABG Hemoglobin ABG Carboxyhemoglobin Oxyhemoglobin Sodium Potassium Chloride Carbon Dioxide BUN Creatinine Glucose POC Glucose 162 H 161 H 147 H Calcium ALT Total Protein Albumin 11/21/18 11/21/18 11/21/18 04:38 04:38 05:27 WBC RBC MCV 75 L MCH 22 L MCHC RDW 20.2 H Plt Count 82 L Lymph % (Auto) 4.8 L Lymph # 0.4 L Seg Neutrophils % 87.5 H Seg Neuts % (Manual) Lymphocytes % (Manual) Seg Neutrophils # Seg Neutrophils # Man Lymphocytes # (Manual) POC ABG pH ABG pH POC ABG pCO2 POC ABG pO2 ABG pO2 ABG HCO3 ABG O2 Saturation ABG Base Excess ABG Hemoglobin ABG Carboxyhemoglobin Oxyhemoglobin Sodium Potassium Chloride Carbon Dioxide 34 H BUN 18 H Creatinine 0.2 L Glucose 163 H POC Glucose 171 H Calcium ALT Total Protein Albumin 11/21/18 11/21/18 11/21/18 12:13 15:12 18:04 WBC RBC MCV MCH MCHC RDW Plt Count Lymph % (Auto) Lymph # Seg Neutrophils % Seg Neuts % (Manual) Lymphocytes % (Manual) Seg Neutrophils # Seg Neutrophils # Man Lymphocytes # (Manual) POC ABG pH ABG pH POC ABG pCO2 51.4 H POC ABG pO2 71 L ABG pO2 ABG HCO3 ABG O2 Saturation ABG Base Excess ABG Hemoglobin ABG Carboxyhemoglobin Oxyhemoglobin Sodium Potassium Chloride Carbon Dioxide BUN Creatinine Glucose POC Glucose 184 H 154 H Calcium ALT Total Protein Albumin 11/21/18 11/22/18 11/22/18 23:46 04:18 04:18 WBC RBC MCV 75 L MCH 23 L MCHC RDW 19.7 H Plt Count 80 L Lymph % (Auto) 3.8 L Lymph # 0.3 L Seg Neutrophils % 88.6 H Seg Neuts % (Manual) Lymphocytes % (Manual) Seg Neutrophils # Seg Neutrophils # Man Lymphocytes # (Manual) POC ABG pH ABG pH POC ABG pCO2 POC ABG pO2 ABG pO2 ABG HCO3 ABG O2 Saturation ABG Base Excess ABG Hemoglobin ABG Carboxyhemoglobin Oxyhemoglobin Sodium Potassium Chloride Carbon Dioxide 34 H BUN 20 H Creatinine 0.2 L Glucose 143 H POC Glucose 170 H Calcium ALT Total Protein Albumin 11/22/18 11/22/18 11/22/18 05:27 12:58 14:54 WBC RBC MCV MCH MCHC RDW Plt Count Lymph % (Auto) Lymph # Seg Neutrophils % Seg Neuts % (Manual) Lymphocytes % (Manual) Seg Neutrophils # Seg Neutrophils # Man Lymphocytes # (Manual) POC ABG pH 7.488 H ABG pH POC ABG pCO2 48.1 H POC ABG pO2 69 L ABG pO2 ABG HCO3 ABG O2 Saturation ABG Base Excess ABG Hemoglobin ABG Carboxyhemoglobin Oxyhemoglobin Sodium Potassium Chloride Carbon Dioxide BUN Creatinine Glucose POC Glucose 140 H 108 H Calcium ALT Total Protein Albumin 11/22/18 11/23/18 11/23/18 18:34 00:03 05:32 WBC RBC MCV MCH MCHC RDW Plt Count Lymph % (Auto) Lymph # Seg Neutrophils % Seg Neuts % (Manual) Lymphocytes % (Manual) Seg Neutrophils # Seg Neutrophils # Man Lymphocytes # (Manual) POC ABG pH ABG pH POC ABG pCO2 POC ABG pO2 ABG pO2 ABG HCO3 ABG O2 Saturation ABG Base Excess ABG Hemoglobin ABG Carboxyhemoglobin Oxyhemoglobin Sodium Potassium Chloride Carbon Dioxide BUN Creatinine Glucose POC Glucose 152 H 141 H 108 H Calcium ALT Total Protein Albumin 11/23/18 11/23/18 11/23/18 11:35 16:07 21:54 WBC RBC MCV MCH MCHC RDW Plt Count Lymph % (Auto) Lymph # Seg Neutrophils % Seg Neuts % (Manual) Lymphocytes % (Manual) Seg Neutrophils # Seg Neutrophils # Man Lymphocytes # (Manual) POC ABG pH ABG pH POC ABG pCO2 POC ABG pO2 ABG pO2 ABG HCO3 ABG O2 Saturation ABG Base Excess ABG Hemoglobin ABG Carboxyhemoglobin Oxyhemoglobin Sodium Potassium Chloride Carbon Dioxide BUN Creatinine Glucose POC Glucose 123 H 117 H 163 H Calcium ALT Total Protein Albumin 11/24/18 11/24/18 11/24/18 05:57 05:57 11:32 WBC 14.7 H RBC MCV 74 L MCH 23 L MCHC RDW 20.8 H Plt Count 118 L Lymph % (Auto) 2.3 L Lymph # 0.3 L Seg Neutrophils % Seg Neuts % (Manual) 96.0 H Lymphocytes % (Manual) 0 L Seg Neutrophils # 13.4 H Seg Neutrophils # Man 14.1 H Lymphocytes # (Manual) 0.0 L POC ABG pH ABG pH POC ABG pCO2 POC ABG pO2 ABG pO2 ABG HCO3 ABG O2 Saturation ABG Base Excess ABG Hemoglobin ABG Carboxyhemoglobin Oxyhemoglobin Sodium Potassium Chloride Carbon Dioxide 32 H BUN Creatinine 0.3 L Glucose 111 H POC Glucose 113 H Calcium ALT Total Protein Albumin 11/24/18 16:35 WBC RBC MCV MCH MCHC RDW Plt Count Lymph % (Auto) Lymph # Seg Neutrophils % Seg Neuts % (Manual) Lymphocytes % (Manual) Seg Neutrophils # Seg Neutrophils # Man Lymphocytes # (Manual) POC ABG pH ABG pH POC ABG pCO2 POC ABG pO2 ABG pO2 ABG HCO3 ABG O2 Saturation ABG Base Excess ABG Hemoglobin ABG Carboxyhemoglobin Oxyhemoglobin Sodium Potassium Chloride Carbon Dioxide BUN Creatinine Glucose POC Glucose 121 H Calcium ALT Total Protein Albumin Chest x-ray: report reviewed (Mild interstitial pulmonary edema.), image reviewed Allied health notes reviewed: nursing
[2018-11-25] MEDS: methylPREDNISolone Sod Succinate 125 MG/2 ML INJ IV SCH (06:08)
[2018-11-25] MEDS: BUDESONIDE 0.5 MG/2 ML NEBU IH SCH ×2 (07:43→20:36)
[2018-11-25] MEDS: IPRATROPIUM/ALBUTEROL SULFATE 3 ML AMPUL.NEB IH SCH ×2 (07:43→20:36)
[2018-11-25] MEDS: ARFORMOTEROL 15 MCG/2 ML NEBU IH SCH ×2 (07:43→20:36)
[2018-11-25] MEDS ORDERED: methylPREDNISolone Sod Succinate 125 MG/2 ML INJ IV SCH (09:00)
[2018-11-25] MEDS: QUEtiapine 100 MG TAB PO SCH ×2 (10:37→21:57)
[2018-11-25] MEDS: TAMSULOSIN 0.4 MG CAP PO SCH (10:37)
[2018-11-25] MEDS: ACETAMINOPHEN 325 MG TAB PO PRN (10:37)
[2018-11-25] MEDS: LINEZOLID 600 MG TAB PO SCH ×2 (10:38→21:57)
[2018-11-25] MEDS: NICOTINE 14 MG/24 HR PATCH TD SCH (10:38)
[2018-11-25] MEDS: FAMOTIDINE 20 MG TAB PO SCH ×2 (10:39→21:57)
[2018-11-25] MEDS: BACLOFEN 10 MG TAB PO SCH ×2 (10:39→21:57)
[2018-11-25] MEDS: VENLAFAXINE 25 MG TAB PO SCH ×3 (10:39→23:28)
--- NOTE | 2018-11-25 13:05 | Progress Note ---
Assessment and Plan Patient awake and resting on 2 litres O2. O2 saturation 95%. Patient still confused. No acute respiratory distress. Patient afebrile but has leukocytosis. - Patient Problems (1) Acute and chronic respiratory failure Current Visit: No Status: Acute Plan to address problem: O2 2 litres via nasal canula. Albuterol/atrovent aerosol treatments q 6 hours. Continue I/V solumedrol. Continue Zyvox. Continue famotidine. Recommend DVT prophylaxis.SCDs (2) Acute exacerbation of chronic obstructive pulmonary disease (COPD) Current Visit: No Status: Acute Plan to address problem: O2 2 litres via nasal canula. Albuterol/atrovent aerosol treatments q 6 hours. Continue I/V solumedrol. Continue Zyvox. Continue famotidine. Recommend DVT prophylaxis. SCDs Continue nicotine patch (3) Depression Current Visit: No Status: Chronic Qualifiers: Depression Type: unspecified Qualified Code(s): F32.9 - Major depressive disorder, single episode, unspecified Plan to address problem: Management as per primary care Subjective Date of service: 11/25/18 Principal diagnosis: Ac and ch hypoxic hypercapnic resp failure; AE-COPD; Tobacco use disorder Interval history: Patient awake and resting on 2 litres O2. O2 saturation 95%. Patient still confused. No acute respiratory distress. Patient afebrile but has leukocytosis. Objective Vital Signs - 12hr 11/25/18 11/25/18 11/25/18 05:08 07:48 07:52 Temperature 97.5 F L Pulse Rate 96 H Pulse Rate [ 87 Anterior Bilateral] Pulse Rate [ 87 Bilateral Bases ] Respiratory 20 Rate Respiratory 16 Rate [Anterior Bilateral] Respiratory 16 Rate [Bilateral Bases] Blood Pressure 132/76 O2 Sat by Pulse 95 95 Oximetry Constitutional: no acute distress, alert, other (still confused) Eyes: non-icteric ENT: oropharynx moist, other (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) Neck: supple, no lymphadenopathy, no JVD, other (large neck circumference) Effort: normal Ascultation: Bilateral: diminished breath sounds, rhonchi Percussion: Bilateral: not dull Cardiovascular: regular rate and rhythm Gastrointestinal: normoactive bowel sounds, soft, non-tender, non-distended Integumentary: normal Extremities: no cyanosis, no edema, pink and warm, pulses normal Neurologic: non-focal exam (grossly), pupils equal and round, motor strength normal and, other (agitated) Psychiatric: other (unable to assess) CBC and BMP: 11/24/18 05:57 11/24/18 05:57 ABG, PT/INR, D-dimer: ABG POC ABG pH 7.488 (7.35-7.45) H 11/22/18 14:54 ABG pH 7.247 pH Units (7.350-7.450) L 11/16/18 05:10 POC ABG pCO2 48.1 (35-45) H 11/22/18 14:54 ABG pCO2 64.0 mm Hg 11/16/18 05:10 POC ABG pO2 69 (80-105) L 11/22/18 14:54 ABG pO2 65.7 mm Hg (80.0-90.0) L 11/16/18 05:10 POC ABG HCO3 36.5 (22-26 mml/L) 11/22/18 14:54 POC ABG Total CO2 38 (23-27mmol/L) 11/22/18 14:54 POC ABG O2 Sat 95 11/22/18 14:54 ABG O2 Saturation 89.9 % (95.0-99.0) L 11/16/18 05:10 PT/INR, D-dimer PT 14.1 Sec. (12.2-14.9) 11/14/18 19:39 INR 1.12 (0.87-1.13) 11/14/18 19:39 Abnormal lab findings: Abnormal Labs 11/14/18 11/14/18 11/14/18 18:59 19:39 19:39 WBC RBC 5.30 H MCV MCH 23 L MCHC 29 L RDW 20.5 H Plt Count 132 L Lymph % (Auto) 7.2 L Lymph # 0.6 L Seg Neutrophils % 87.1 H Seg Neuts % (Manual) Lymphocytes % (Manual) Seg Neutrophils # Seg Neutrophils # Man Lymphocytes # (Manual) POC ABG pH ABG pH POC ABG pCO2 POC ABG pO2 ABG pO2 ABG HCO3 ABG O2 Saturation ABG Base Excess ABG Hemoglobin ABG Carboxyhemoglobin Oxyhemoglobin Sodium 147 H Potassium Chloride Carbon Dioxide 35 H BUN Creatinine 0.4 L Glucose 121 H POC Glucose 129 H Calcium ALT 6 L Total Protein 6.2 L Albumin 3.4 L 11/14/18 11/15/18 11/15/18 20:45 04:20 04:20 WBC RBC 5.36 H MCV 78 L MCH 22 L MCHC 28 L RDW 20.5 H Plt Count 124 L Lymph % (Auto) Lymph # Seg Neutrophils % Seg Neuts % (Manual) 92.0 H Lymphocytes % (Manual) 6.0 L Seg Neutrophils # Seg Neutrophils # Man Lymphocytes # (Manual) 0.4 L POC ABG pH ABG pH 7.346 L POC ABG pCO2 POC ABG pO2 ABG pO2 ABG HCO3 32.4 H ABG O2 Saturation ABG Base Excess 5.3 H ABG Hemoglobin 11.0 L ABG Carboxyhemoglobin 6.4 H Oxyhemoglobin 90.0 L Sodium 146 H Potassium Chloride 107.6 H Carbon Dioxide BUN Creatinine 0.4 L Glucose 132 H POC Glucose Calcium 8.1 L ALT Total Protein Albumin 11/15/18 11/15/18 11/15/18 06:18 12:36 18:06 WBC RBC MCV MCH MCHC RDW Plt Count Lymph % (Auto) Lymph # Seg Neutrophils % Seg Neuts % (Manual) Lymphocytes % (Manual) Seg Neutrophils # Seg Neutrophils # Man Lymphocytes # (Manual) POC ABG pH 7.291 L ABG pH POC ABG pCO2 65.4 H POC ABG pO2 65 L ABG pO2 ABG HCO3 ABG O2 Saturation ABG Base Excess ABG Hemoglobin ABG Carboxyhemoglobin Oxyhemoglobin Sodium Potassium Chloride Carbon Dioxide BUN Creatinine Glucose POC Glucose 149 H 171 H Calcium ALT Total Protein Albumin 11/15/18 11/16/18 11/16/18 23:42 00:11 00:11 WBC 11.2 H RBC MCV 77 L MCH 22 L MCHC 28 L RDW 21.3 H Plt Count 136 L Lymph % (Auto) Lymph # Seg Neutrophils % Seg Neuts % (Manual) 89.0 H Lymphocytes % (Manual) 6.0 L Seg Neutrophils # Seg Neutrophils # Man 10.0 H Lymphocytes # (Manual) 0.7 L POC ABG pH ABG pH POC ABG pCO2 POC ABG pO2 ABG pO2 ABG HCO3 ABG O2 Saturation ABG Base Excess ABG Hemoglobin ABG Carboxyhemoglobin Oxyhemoglobin Sodium Potassium 5.4 H D Chloride 109.5 H Carbon Dioxide BUN 18 H Creatinine 0.5 L Glucose 118 H POC Glucose 134 H Calcium ALT Total Protein Albumin 11/16/18 11/16/18 11/16/18 05:10 06:55 12:22 WBC RBC MCV MCH MCHC RDW Plt Count Lymph % (Auto) Lymph # Seg Neutrophils % Seg Neuts % (Manual) Lymphocytes % (Manual) Seg Neutrophils # Seg Neutrophils # Man Lymphocytes # (Manual) POC ABG pH ABG pH 7.247 L POC ABG pCO2 POC ABG pO2 ABG pO2 65.7 L ABG HCO3 27.3 H ABG O2 Saturation 89.9 L ABG Base Excess ABG Hemoglobin 10.5 L ABG Carboxyhemoglobin Oxyhemoglobin 87.9 L Sodium Potassium Chloride Carbon Dioxide BUN Creatinine Glucose POC Glucose 116 H 106 H Calcium ALT Total Protein Albumin 11/16/18 11/17/18 11/17/18 18:04 04:56 09:26 WBC 15.1 H RBC MCV 77 L MCH 22 L MCHC 28 L RDW 20.4 H Plt Count 134 L Lymph % (Auto) Lymph # Seg Neutrophils % Seg Neuts % (Manual) Lymphocytes % (Manual) Seg Neutrophils # Seg Neutrophils # Man Lymphocytes # (Manual) POC ABG pH 7.335 L ABG pH POC ABG pCO2 58.2 H POC ABG pO2 74 L ABG pO2 ABG HCO3 ABG O2 Saturation ABG Base Excess ABG Hemoglobin ABG Carboxyhemoglobin Oxyhemoglobin Sodium Potassium Chloride Carbon Dioxide BUN Creatinine Glucose POC Glucose 117 H Calcium ALT Total Protein Albumin 11/17/18 11/17/18 11/17/18 09:26 18:03 23:49 WBC RBC MCV MCH MCHC RDW Plt Count Lymph % (Auto) Lymph # Seg Neutrophils % Seg Neuts % (Manual) Lymphocytes % (Manual) Seg Neutrophils # Seg Neutrophils # Man Lymphocytes # (Manual) POC ABG pH ABG pH POC ABG pCO2 POC ABG pO2 ABG pO2 ABG HCO3 ABG O2 Saturation ABG Base Excess ABG Hemoglobin ABG Carboxyhemoglobin Oxyhemoglobin Sodium 149 H Potassium Chloride 109.0 H Carbon Dioxide BUN 22 H Creatinine 0.4 L Glucose POC Glucose 128 H 129 H Calcium ALT Total Protein Albumin 11/18/18 11/18/18 11/18/18 04:00 06:15 09:35 WBC RBC MCV 76 L MCH 22 L MCHC 29 L RDW 20.3 H Plt Count 111 L Lymph % (Auto) Lymph # Seg Neutrophils % Seg Neuts % (Manual) Lymphocytes % (Manual) Seg Neutrophils # Seg Neutrophils # Man Lymphocytes # (Manual) POC ABG pH ABG pH POC ABG pCO2 54.2 H POC ABG pO2 62 L ABG pO2 ABG HCO3 ABG O2 Saturation ABG Base Excess ABG Hemoglobin ABG Carboxyhemoglobin Oxyhemoglobin Sodium Potassium Chloride Carbon Dioxide BUN Creatinine Glucose POC Glucose 144 H Calcium ALT Total Protein Albumin 11/18/18 11/18/18 11/18/18 09:35 12:23 18:21 WBC RBC MCV MCH MCHC RDW Plt Count Lymph % (Auto) Lymph # Seg Neutrophils % Seg Neuts % (Manual) Lymphocytes % (Manual) Seg Neutrophils # Seg Neutrophils # Man Lymphocytes # (Manual) POC ABG pH ABG pH POC ABG pCO2 POC ABG pO2 ABG pO2 ABG HCO3 ABG O2 Saturation ABG Base Excess ABG Hemoglobin ABG Carboxyhemoglobin Oxyhemoglobin Sodium 149 H Potassium Chloride 109.5 H Carbon Dioxide 31 H BUN 20 H Creatinine 0.4 L Glucose 137 H POC Glucose 140 H 160 H Calcium ALT Total Protein Albumin 11/18/18 11/19/18 11/19/18 23:55 04:12 05:41 WBC RBC MCV MCH MCHC RDW Plt Count Lymph % (Auto) Lymph # Seg Neutrophils % Seg Neuts % (Manual) Lymphocytes % (Manual) Seg Neutrophils # Seg Neutrophils # Man Lymphocytes # (Manual) POC ABG pH 7.345 L ABG pH POC ABG pCO2 64.9 H POC ABG pO2 69 L ABG pO2 ABG HCO3 ABG O2 Saturation ABG Base Excess ABG Hemoglobin ABG Carboxyhemoglobin Oxyhemoglobin Sodium Potassium Chloride Carbon Dioxide BUN Creatinine Glucose POC Glucose 151 H 145 H Calcium ALT Total Protein Albumin 11/19/18 11/19/18 11/19/18 09:25 11:25 17:55 WBC RBC MCV MCH MCHC RDW Plt Count Lymph % (Auto) Lymph # Seg Neutrophils % Seg Neuts % (Manual) Lymphocytes % (Manual) Seg Neutrophils # Seg Neutrophils # Man Lymphocytes # (Manual) POC ABG pH 7.346 L ABG pH POC ABG pCO2 65.3 H POC ABG pO2 71 L ABG pO2 ABG HCO3 ABG O2 Saturation ABG Base Excess ABG Hemoglobin ABG Carboxyhemoglobin Oxyhemoglobin Sodium 150 H Potassium Chloride 109.4 H Carbon Dioxide 32 H BUN 21 H Creatinine 0.3 L Glucose 149 H POC Glucose 160 H Calcium ALT Total Protein Albumin 11/19/18 11/19/18 11/20/18 17:58 23:15 04:06 WBC RBC MCV MCH MCHC RDW Plt Count Lymph % (Auto) Lymph # Seg Neutrophils % Seg Neuts % (Manual) Lymphocytes % (Manual) Seg Neutrophils # Seg Neutrophils # Man Lymphocytes # (Manual) POC ABG pH ABG pH POC ABG pCO2 55.6 H POC ABG pO2 66 L ABG pO2 ABG HCO3 ABG O2 Saturation ABG Base Excess ABG Hemoglobin ABG Carboxyhemoglobin Oxyhemoglobin Sodium Potassium Chloride Carbon Dioxide BUN Creatinine Glucose POC Glucose 171 H 156 H Calcium ALT Total Protein Albumin 11/20/18 11/20/18 11/20/18 04:39 04:39 05:14 WBC 12.0 H RBC MCV 76 L MCH 22 L MCHC 29 L RDW 19.7 H Plt Count 80 L Lymph % (Auto) Lymph # Seg Neutrophils % Seg Neuts % (Manual) Lymphocytes % (Manual) Seg Neutrophils # Seg Neutrophils # Man Lymphocytes # (Manual) POC ABG pH ABG pH POC ABG pCO2 POC ABG pO2 ABG pO2 ABG HCO3 ABG O2 Saturation ABG Base Excess ABG Hemoglobin ABG Carboxyhemoglobin Oxyhemoglobin Sodium 151 H Potassium Chloride 109.0 H Carbon Dioxide 33 H BUN 18 H Creatinine 0.3 L Glucose 146 H POC Glucose 137 H Calcium ALT Total Protein Albumin 11/20/18 11/20/18 11/20/18 12:28 17:24 23:37 WBC RBC MCV MCH MCHC RDW Plt Count Lymph % (Auto) Lymph # Seg Neutrophils % Seg Neuts % (Manual) Lymphocytes % (Manual) Seg Neutrophils # Seg Neutrophils # Man Lymphocytes # (Manual) POC ABG pH ABG pH POC ABG pCO2 POC ABG pO2 ABG pO2 ABG HCO3 ABG O2 Saturation ABG Base Excess ABG Hemoglobin ABG Carboxyhemoglobin Oxyhemoglobin Sodium Potassium Chloride Carbon Dioxide BUN Creatinine Glucose POC Glucose 162 H 161 H 147 H Calcium ALT Total Protein Albumin 11/21/18 11/21/18 11/21/18 04:38 04:38 05:27 WBC RBC MCV 75 L MCH 22 L MCHC RDW 20.2 H Plt Count 82 L Lymph % (Auto) 4.8 L Lymph # 0.4 L Seg Neutrophils % 87.5 H Seg Neuts % (Manual) Lymphocytes % (Manual) Seg Neutrophils # Seg Neutrophils # Man Lymphocytes # (Manual) POC ABG pH ABG pH POC ABG pCO2 POC ABG pO2 ABG pO2 ABG HCO3 ABG O2 Saturation ABG Base Excess ABG Hemoglobin ABG Carboxyhemoglobin Oxyhemoglobin Sodium Potassium Chloride Carbon Dioxide 34 H BUN 18 H Creatinine 0.2 L Glucose 163 H POC Glucose 171 H Calcium ALT Total Protein Albumin 11/21/18 11/21/18 11/21/18 12:13 15:12 18:04 WBC RBC MCV MCH MCHC RDW Plt Count Lymph % (Auto) Lymph # Seg Neutrophils % Seg Neuts % (Manual) Lymphocytes % (Manual) Seg Neutrophils # Seg Neutrophils # Man Lymphocytes # (Manual) POC ABG pH ABG pH POC ABG pCO2 51.4 H POC ABG pO2 71 L ABG pO2 ABG HCO3 ABG O2 Saturation ABG Base Excess ABG Hemoglobin ABG Carboxyhemoglobin Oxyhemoglobin Sodium Potassium Chloride Carbon Dioxide BUN Creatinine Glucose POC Glucose 184 H 154 H Calcium ALT Total Protein Albumin 11/21/18 11/22/18 11/22/18 23:46 04:18 04:18 WBC RBC MCV 75 L MCH 23 L MCHC RDW 19.7 H Plt Count 80 L Lymph % (Auto) 3.8 L Lymph # 0.3 L Seg Neutrophils % 88.6 H Seg Neuts % (Manual) Lymphocytes % (Manual) Seg Neutrophils # Seg Neutrophils # Man Lymphocytes # (Manual) POC ABG pH ABG pH POC ABG pCO2 POC ABG pO2 ABG pO2 ABG HCO3 ABG O2 Saturation ABG Base Excess ABG Hemoglobin ABG Carboxyhemoglobin Oxyhemoglobin Sodium Potassium Chloride Carbon Dioxide 34 H BUN 20 H Creatinine 0.2 L Glucose 143 H POC Glucose 170 H Calcium ALT Total Protein Albumin 11/22/18 11/22/18 11/22/18 05:27 12:58 14:54 WBC RBC MCV MCH MCHC RDW Plt Count Lymph % (Auto) Lymph # Seg Neutrophils % Seg Neuts % (Manual) Lymphocytes % (Manual) Seg Neutrophils # Seg Neutrophils # Man Lymphocytes # (Manual) POC ABG pH 7.488 H ABG pH POC ABG pCO2 48.1 H POC ABG pO2 69 L ABG pO2 ABG HCO3 ABG O2 Saturation ABG Base Excess ABG Hemoglobin ABG Carboxyhemoglobin Oxyhemoglobin Sodium Potassium Chloride Carbon Dioxide BUN Creatinine Glucose POC Glucose 140 H 108 H Calcium ALT Total Protein Albumin 11/22/18 11/23/18 11/23/18 18:34 00:03 05:32 WBC RBC MCV MCH MCHC RDW Plt Count Lymph % (Auto) Lymph # Seg Neutrophils % Seg Neuts % (Manual) Lymphocytes % (Manual) Seg Neutrophils # Seg Neutrophils # Man Lymphocytes # (Manual) POC ABG pH ABG pH POC ABG pCO2 POC ABG pO2 ABG pO2 ABG HCO3 ABG O2 Saturation ABG Base Excess ABG Hemoglobin ABG Carboxyhemoglobin Oxyhemoglobin Sodium Potassium Chloride Carbon Dioxide BUN Creatinine Glucose POC Glucose 152 H 141 H 108 H Calcium ALT Total Protein Albumin 11/23/18 11/23/18 11/23/18 11:35 16:07 21:54 WBC RBC MCV MCH MCHC RDW Plt Count Lymph % (Auto) Lymph # Seg Neutrophils % Seg Neuts % (Manual) Lymphocytes % (Manual) Seg Neutrophils # Seg Neutrophils # Man Lymphocytes # (Manual) POC ABG pH ABG pH POC ABG pCO2 POC ABG pO2 ABG pO2 ABG HCO3 ABG O2 Saturation ABG Base Excess ABG Hemoglobin ABG Carboxyhemoglobin Oxyhemoglobin Sodium Potassium Chloride Carbon Dioxide BUN Creatinine Glucose POC Glucose 123 H 117 H 163 H Calcium ALT Total Protein Albumin 11/24/18 11/24/18 11/24/18 05:57 05:57 11:32 WBC 14.7 H RBC MCV 74 L MCH 23 L MCHC RDW 20.8 H Plt Count 118 L Lymph % (Auto) 2.3 L Lymph # 0.3 L Seg Neutrophils % Seg Neuts % (Manual) 96.0 H Lymphocytes % (Manual) 0 L Seg Neutrophils # 13.4 H Seg Neutrophils # Man 14.1 H Lymphocytes # (Manual) 0.0 L POC ABG pH ABG pH POC ABG pCO2 POC ABG pO2 ABG pO2 ABG HCO3 ABG O2 Saturation ABG Base Excess ABG Hemoglobin ABG Carboxyhemoglobin Oxyhemoglobin Sodium Potassium Chloride Carbon Dioxide 32 H BUN Creatinine 0.3 L Glucose 111 H POC Glucose 113 H Calcium ALT Total Protein Albumin 11/24/18 11/24/18 11/25/18 16:35 21:33 11:12 WBC RBC MCV MCH MCHC RDW Plt Count Lymph % (Auto) Lymph # Seg Neutrophils % Seg Neuts % (Manual) Lymphocytes % (Manual) Seg Neutrophils # Seg Neutrophils # Man Lymphocytes # (Manual) POC ABG pH ABG pH POC ABG pCO2 POC ABG pO2 ABG pO2 ABG HCO3 ABG O2 Saturation ABG Base Excess ABG Hemoglobin ABG Carboxyhemoglobin Oxyhemoglobin Sodium Potassium Chloride Carbon Dioxide BUN Creatinine Glucose POC Glucose 121 H 120 H 194 H Calcium ALT Total Protein Albumin Allied health notes reviewed: nursing
[2018-11-25] MEDS: INSULIN LISPRO 100 UNIT/ML SUB-Q SCH ×3 (13:14→22:35)
--- NOTE | 2018-11-25 16:57 | Progress Note ---
Assessment and Plan Cultures: Blood culture 11/14/2018 no growth today. Tracheal aspirated 11/14/2018 MRSA VITO=2 Tracheal aspirated 11/17/2018 pending Assessment: 58 y/o female with history of tobacco abuse, COPD with chronic respiratory failure on home oxygen known to our service in May 2018 with septic shock and MDR-Pseudomonas/Ecoli pneumonia, admitted on 11/14/2018 due to worsening SOB: 1) Sepsis: fever resolved x 48h; source is LLL pneumonia. CT chest showed LLL pneumonia with minimal emma effusions, no loculation or abscess. Tracheal asp on 11/14 MRSA VITO=2. Recent history of MDR Pseudomonas pneumonia; CXR with mild left basilar pleuroparietal disease, mild diffuse interstitial lung disease. During May 2018 admission she was treated with levaquin for 10 days as the Pseudomonas was resistant to cefepime, zosyn and sensitive to quinolones. Blood culture 11/14/2018 no growth today. Will continue meropenem and start vanacomycin. 2) Chronic respiratory failure: intubated. 3) COPD exacerbation with pneumonia. Recommendations: continue linezolid 600 mg PO q 12 hours D5 of 7 monitor platelets Will follow. Mirtha Hairston MD Infectious Diseases Crime Scene Examiner [facility] ([facility]) M [phone] O [phone] Subjective Date of service: 11/25/18 Principal diagnosis: Ac and ch hypoxic hypercapnic resp failure; AE-COPD; Tobacco use disorder Interval history: Feels better, no fever. Objective - Exam Narrative Exam: General appearance: Alert in NAD Eyes: anicteric sclerae, moist conjunctivae; no lid-lag; PERRLA HENT: Atraumatic; oropharynx clear Lungs: emma rhonchi CV: RRR no murmur Abdomen: Soft, non-tender; no masses or hepatosplenomegaly Extremities: no edema, no cyanosis Skin: multiple emma arms ecchymoses Psych: no agitated Neuro:alert oriented follows commands - Constitutional Vitals: Vital Signs Temp Pulse Resp BP Pulse Ox 97.3 F L 138 H 18 110/61 76 L 11/25/18 12:27 11/25/18 12:27 11/25/18 12:27 11/25/18 12:27 11/25/18 12:27 Temperature -Last 24 Hours Temperature 97.3 F Temperature 97.5 F Temperature 98.0 F Temperature 98.3 F - Labs CBC & Chem 7: 11/24/18 05:57 11/24/18 05:57 Labs: Abnormal lab results 11/24/18 11/25/18 11/25/18 Range/Units 21:33 11:12 16:45 POC Glucose 120 H 194 H 160 H (70-105)
[2018-11-25] MEDS: methylPREDNISolone Sod Succinate 40 MG/1 ML INJ IV SCH (17:51)
--- NOTE | 2018-11-25 19:35 | Progress Note ---
Assessment and Plan Assessment and plan: 58 y/o female patient with hx of COPD who presented to the ED via EMS on account of worsening sob. Apparently, the patient called 911 for shortness of breath. Per, EMS, he was noted to be saturating in the 60's in the field. She was given albuterol, steroids, and magnesium in the field. On arrival to the ED, the patient was altered, She was emergently intubated and placed on MV. Patient also has sepsis secondary to pneumonia, evaluated by pulmonary critical, tracheal aspirate MRSA ,on linezolid per ID, Extubated on 11/22/18 at 5 pm transfer to floor. Patient is receiving physical therapy occupational therapy Still confused at times --Acute on chronic combined respiratory failure requiring intubation: s/pextubation ,on ventimask 35% 02 sats > 94% antibiotics per ID. Nebulizes steroids pulmonology following --Anxiety: low dose Xanax,supportive care --End-stage COPD; acute exacerbation with chronic hypoxia treat with iv steriods continue taper, abx, nebs around the clock -- Sepsis/pneumonia, tracheal aspirate MRSA;cont linezolid, per ID Contact isolation --Hypernatremia, resolved --Malignant HTN (hypertension).; Well controlled Continue current antihypertensives and when necessary hydralazine --Sinus tachycardia; probably secondary to agitation Supportive care --Nicotine dependence; nicotine patch when necessary. --Thrombocytopenia Remains below 100, stable no active bleeding.Hematology following --DVt Px; SCDs No pharmacologic anticoagulation in view of thrombocytopenia --Full code --Nutrition: bed side swallow/speech and swallow Diet as tolerated, Physical therapy occupational therapy rehabilitation Possible discharge home with home health versus placement When patient is medically stable Plan of care Care reviewed with the patient and her nurse History Interval history: Patient seen and examined medical records reviewed The patient is confused pulling stuff restraint for safety Alert and awake, not in acute distress Vital signs noted Hospitalist Physical - Constitutional Vitals: Temp Pulse Resp BP Pulse Ox 97.8 F 81 20 115/58 91 11/25/18 18:32 11/25/18 18:32 11/25/18 18:32 11/25/18 18:32 11/25/18 18:32 General appearance: Present: no acute distress, well-nourished, obese, dish eveled, other (confused) - EENT Eyes: Present: PERRL, EOM intact - Neck Neck: Present: supple, normal ROM - Respiratory Respiratory effort: normal Respiratory: bilateral: diminished, rales, negative: rhonchi, wheezing - Cardiovascular Rhythm: regular Heart Sounds: Present: S1 & S2 - Extremities Extremities: no ischemia, No edema - Abdominal General gastrointestinal: soft, non-tender, non-distended, normal bowel sounds - Integumentary Integumentary: Present: clear, warm - Psychiatric Psychiatric: appropriate mood/affect, cooperative - Neurologic Neurologic: CNII-XII intact, moves all extremities Results - Labs CBC & Chem 7: 11/26/18 13:42 11/24/18 05:57 Labs: Laboratory Last Values WBC 14.7 K/mm3 (4.5-11.0) H 11/24/18 05:57 RBC 4.97 M/mm3 (3.65-5.03) 11/24/18 05:57 Hgb 11.3 gm/dl (10.1-14.3) 11/24/18 05:57 Hct 37.0 % (30.3-42.9) 11/24/18 05:57 MCV 74 fl (79-97) L 11/24/18 05:57 MCH 23 pg (28-32) L 11/24/18 05:57 MCHC 31 % (30-34) 11/24/18 05:57 RDW 20.8 % (13.2-15.2) H 11/24/18 05:57 Plt Count 118 K/mm3 (140-440) L 11/24/18 05:57 Lymph % (Auto) 2.3 % (13.4-35.0) L 11/24/18 05:57 [place] % (Auto) 5.1 % (0.0-7.3) 11/24/18 05:57 Eos % (Auto) 0.0 % (0.0-4.3) 11/22/18 04:18 Baso % (Auto) 0.3 % (0.0-1.8) 11/22/18 04:18 Lymph # 0.3 K/mm3 (1.2-5.4) L 11/24/18 05:57 [place] # 0.6 K/mm3 (0.0-0.8) 11/22/18 04:18 Eos # 0.0 K/mm3 (0.0-0.4) 11/22/18 04:18 Baso # 0.0 K/mm3 (0.0-0.1) 11/22/18 04:18 Add Manual Diff Complete 11/24/18 05:57 Total Counted 100 11/24/18 05:57 Seg Neutrophils % Facilities Maintenance Manager 11/24/18 05:57 Seg Neuts % (Manual) 96.0 % (40.0-70.0) H 11/24/18 05:57 Band Neutrophils % 0 % 11/24/18 05:57 Lymphocytes % (Manual) 0 % (13.4-35.0) L 11/24/18 05:57 Reactive Lymphs % (Man) 0 % 11/24/18 05:57 Monocytes % (Manual) 2.0 % (0.0-7.3) 11/24/18 05:57 Eosinophils % (Manual) 0 % (0.0-4.3) 11/24/18 05:57 Basophils % (Manual) 0 % (0.0-1.8) 11/24/18 05:57 Metamyelocytes % 0 % 11/24/18 05:57 Myelocytes % 2.0 % 11/24/18 05:57 Promyelocytes % 0 % 11/24/18 05:57 Blast Cells % 0 % 11/24/18 05:57 Nucleated RBC % Not Reportable 11/24/18 05:57 Seg Neutrophils # 13.4 K/mm3 (1.8-7.7) H 11/24/18 05:57 Seg Neutrophils # Man 14.1 K/mm3 (1.8-7.7) H 11/24/18 05:57 Band Neutrophils # 0.0 K/mm3 11/24/18 05:57 Lymphocytes # (Manual) 0.0 K/mm3 (1.2-5.4) L 11/24/18 05:57 Abs React Lymphs (Man) 0.0 K/mm3 11/24/18 05:57 Monocytes # (Manual) 0.3 K/mm3 (0.0-0.8) 11/24/18 05:57 Eosinophils # (Manual) 0.0 K/mm3 (0.0-0.4) 11/24/18 05:57 Basophils # (Manual) 0.0 K/mm3 (0.0-0.1) 11/24/18 05:57 Metamyelocytes # 0.0 K/mm3 11/24/18 05:57 Myelocytes # 0.3 K/mm3 11/24/18 05:57 Promyelocytes # 0.0 K/mm3 11/24/18 05:57 Blast Cells # 0.0 K/mm3 11/24/18 05:57 WBC Morphology Not Reportable 11/24/18 05:57 Hypersegmented Neuts Not Reportable 11/24/18 05:57 Hyposegmented Neuts Not Reportable 11/24/18 05:57 Hypogranular Neuts Not Reportable 11/24/18 05:57 Smudge Cells Not Reportable 11/24/18 05:57 Toxic Granulation Not Reportable 11/24/18 05:57 Toxic Vacuolation Not Reportable 11/24/18 05:57 Dohle Bodies Not Reportable 11/24/18 05:57 Pelger-Huet Anomaly Not Reportable 11/24/18 05:57 Neha Rods Not Reportable 11/24/18 05:57 Platelet Estimate Consistent w auto 11/24/18 05:57 Clumped Platelets Not Reportable 11/24/18 05:57 Plt Clumps, EDTA Not Reportable 11/24/18 05:57 Large Platelets Not Reportable 11/24/18 05:57 Giant Platelets Rare 11/24/18 05:57 Platelet Satelliting Not Reportable 11/24/18 05:57 Plt Morphology Comment Not Reportable 11/24/18 05:57 RBC Morphology Not Reportable 11/24/18 05:57 Dimorphic RBCs Not Reportable 11/24/18 05:57 Polychromasia Not Reportable 11/24/18 05:57 Hypochromasia 1+ 11/24/18 05:57 Poikilocytosis Not Reportable 11/24/18 05:57 Anisocytosis 1+ 11/24/18 05:57 Microcytosis Not Reportable 11/24/18 05:57 Macrocytosis Not Reportable 11/24/18 05:57 Spherocytes Not Reportable 11/24/18 05:57 Pappenheimer Bodies Not Reportable 11/24/18 05:57 Sickle Cells Not Reportable 11/24/18 05:57 Target Cells Not Reportable 11/24/18 05:57 Tear Drop Cells Not Reportable 11/24/18 05:57 Ovalocytes Not Reportable 11/24/18 05:57 Helmet Cells Not Reportable 11/24/18 05:57 [place] Bodies Not Reportable 11/24/18 05:57 [place] Rings Not Reportable 11/24/18 05:57 Damien Cells Not Reportable 11/24/18 05:57 Bite Cells Not Reportable 11/24/18 05:57 Crenated Cell Not Reportable 11/24/18 05:57 Elliptocytes Not Reportable 11/24/18 05:57 Acanthocytes (Spur) Not Reportable 11/24/18 05:57 Rouleaux Not Reportable 11/24/18 05:57 Hemoglobin C Crystals Not Reportable 11/24/18 05:57 Schistocytes Not Reportable 11/24/18 05:57 Malaria parasites Not Reportable 11/24/18 05:57 Hernan Bodies Not Reportable 11/24/18 05:57 Hem Pathologist Commnt No 11/24/18 05:57 PT 14.1 Sec. (12.2-14.9) 11/14/18 19:39 INR 1.12 (0.87-1.13) 11/14/18 19:39 POC ABG pH 7.488 (7.35-7.45) H 11/22/18 14:54 ABG pH 7.247 pH Units (7.350-7.450) L 11/16/18 05:10 POC ABG pCO2 48.1 (35-45) H 11/22/18 14:54 ABG pCO2 64.0 mm Hg 11/16/18 05:10 POC ABG pO2 69 (80-105) L 11/22/18 14:54 ABG pO2 65.7 mm Hg (80.0-90.0) L 11/16/18 05:10 POC ABG HCO3 36.5 (22-26 mml/L) 11/22/18 14:54 ABG HCO3 27.3 mmol/L (20.0-26.0) H 11/16/18 05:10 POC ABG Total CO2 38 (23-27mmol/L) 11/22/18 14:54 POC ABG O2 Sat 95 11/22/18 14:54 ABG O2 Saturation 89.9 % (95.0-99.0) L 11/16/18 05:10 ABG O2 Content 13.0 (0.0-44) 11/16/18 05:10 POC ABG Base Excess 13 ((-2) - (+3)mmol/L) 11/22/18 14:54 ABG Base Excess -0.9 mmol/L (-2.0-3.0) 11/16/18 05:10 ABG Hemoglobin 10.5 gm/dl (12.0-16.0) L 11/16/18 05:10 ABG Carboxyhemoglobin 1.7 % (0.0-5.0) 11/16/18 05:10 ABG Methemoglobin 0.5 % (0.0-1.5) 11/16/18 05:10 Oxyhemoglobin 87.9 % (95.0-99.0) L 11/16/18 05:10 FiO2 50 % 11/22/18 14:54 Sodium 143 mmol/L (137-145) 11/24/18 05:57 Potassium 3.9 mmol/L (3.6-5.0) 11/24/18 05:57 Chloride 103.1 mmol/L (98-107) 11/24/18 05:57 Carbon Dioxide 32 mmol/L (22-30) H 11/24/18 05:57 Anion Gap 12 mmol/L 11/24/18 05:57 BUN 12 mg/dL (7-17) 11/24/18 05:57 Creatinine 0.3 mg/dL (0.7-1.2) L 11/24/18 05:57 Estimated GFR > 60 ml/min 11/24/18 05:57 BUN/Creatinine Ratio 40 % 11/24/18 05:57 Glucose 111 mg/dL (65-100) H 11/24/18 05:57 POC Glucose 160 (70-105) H 11/25/18 16:45 Lactic Acid 1.00 mmol/L (0.7-2.0) 11/19/18 15:47 Calcium 8.4 mg/dL (8.4-10.2) 11/24/18 05:57 Magnesium 2.20 mg/dL (1.7-2.3) 11/21/18 04:38 Total Bilirubin 0.20 mg/dL (0.1-1.2) 11/14/18 19:39 AST 13 units/L (5-40) 11/14/18 19:39 ALT 6 units/L (7-56) L 11/14/18 19:39 Alkaline Phosphatase 85 units/L (35-129) 11/14/18 19:39 Troponin T < 0.010 ng/mL (0.00-0.029) 11/15/18 04:20 C-Reactive Protein 0.00 mg/dL (0.00-1.30) 11/19/18 15:47 Total Protein 6.2 g/dL (6.3-8.2) L 11/14/18 19:39 Albumin 3.4 g/dL (3.9-5) L 11/14/18 19:39 Albumin/Globulin Ratio 1.2 % 11/14/18 19:39 Urine Color Yellow (Yellow) 11/14/18 20:29 Urine Turbidity Clear (Clear) 11/14/18 20:29 Urine pH 5.0 (5.0-7.0) 11/14/18 20:29 Ur Specific [place] 1.026 (1.003-1.030) 11/14/18 20:29 Urine Protein 100 mg/dl mg/dL (Negative) 11/14/18 20:29 Urine Glucose (UA) Neg mg/dL (Negative) 11/14/18 20:29 Urine Ketones Neg mg/dL (Negative) 11/14/18 20:29 Urine Blood Sm (Negative) 11/14/18 20:29 Urine Nitrite Neg (Negative) 11/14/18 20:29 Urine Bilirubin Neg (Negative) 11/14/18 20:29 Urine Urobilinogen < 2.0 mg/dL (<2.0) 11/14/18 20:29 Ur Leukocyte Esterase Neg (Negative) 11/14/18 20:29 Urine WBC (Auto) 6.0 /HPF (0.0-6.0) 11/14/18 20:29 Urine RBC (Auto) 16.0 /HPF (0.0-6.0) 11/14/18 20:29 U Epithel Cells (Auto) 1.0 /HPF (0-13.0) 11/14/18 20:29 Urine Bacteria (Auto) 1+ /HPF (Negative) 11/14/18 20:29 Hyaline Casts 36 /LPF 11/14/18 20:29 Urine Mucus 1+ /HPF 11/14/18 20:29 Vancomycin Trough 12.1 ug/mL (5.0-20.0) 11/19/18 09:25 Active Medications - Current Medications Current Medications: Generic Name Dose Route Start Last Admin Trade Name Freq PRN Reason Stop Dose Admin Acetaminophen 650 mg 11/14/18 22:11 11/25/18 10:37 Tylenol PO 650 mg Q4H PRN Administration Pain MILD(1-3)/Fever >100.5/PRAJAPATI Albuterol 2.5 mg 11/19/18 13:00 Proventil IH Q4HRT PRN Shortness Of Breath Albuterol/Ipratropium 1 ampul 11/23/18 20:00 11/25/18 07:43 Duoneb *Not For Prn Use* IH 1 ampul Q12HRT DOMINICK Administration Alprazolam 0.25 mg 11/23/18 08:02 Xanax PO Q8H PRN Anxiety Arformoterol Tartrate 15 mcg 11/19/18 20:00 11/25/18 07:43 Brovana Nebu IH 15 mcg Q12HRT DOMINICK Administration Baclofen 10 mg 11/16/18 11:00 11/25/18 10:39 Lioresal PO 10 mg BID DOMINICK Administration Budesonide 0.5 mg 11/19/18 20:00 11/25/18 07:43 Pulmicort IH 0.5 mg Q12HRT DOMINICK Administration Famotidine 20 mg 11/16/18 10:00 11/25/18 10:39 Pepcid PO 20 mg BID DOMINICK Administration Hydralazine HCl 10 mg 11/20/18 08:30 Apresoline IV Q4HR PRN Hypertension Hydrophilic Ointment 1 applic 11/14/18 19:14 Vaseline Lip Therapy TP Q2HR PRN Dry Lips Insulin Human Lispro 0 unit 11/23/18 11:30 11/25/18 18:38 Humalog SUB-Q 2 unit ACHS DOMINICK Administration Protocol Linezolid 600 mg 11/23/18 10:00 11/25/18 10:38 Zyvox PO 11/27/18 23:59 600 mg BID DOMINICK Administration Lorazepam 1 mg 11/20/18 08:15 11/23/18 20:02 Ativan IV 1 mg Q4HR PRN Administration Agitation Methylprednisolone Sodium Succinate 40 mg 11/25/18 18:00 11/25/18 17:51 Solu-Medrol IV 40 mg Q12H DOMINICK Administration Multi-Ingred Cream/Lotion/Oil/Oint 1 applic 11/14/18 19:14 Artificial Tears Ophth Oint OU Q4HR PRN Dry Eye(s) Nicotine 14 mg 11/15/18 16:00 11/25/18 10:38 Habitrol TD 14 mg QDAY DOMINICK Administration Ondansetron HCl 4 mg 11/14/18 22:11 Zofran IV Q8H PRN Nausea And Vomiting Quetiapine Fumarate 300 mg 11/20/18 13:17 11/25/18 10:37 Seroquel PO 300 mg BID DOMINICK Administration Sodium Chloride 10 ml 11/15/18 10:00 11/25/18 13:15 Sodium Chloride Flush Syringe 10 Ml IV 10 ml BID DOMINICK Administration Sodium Chloride 10 ml 11/14/18 22:11 11/25/18 06:08 Sodium Chloride Flush Syringe 10 Ml IV 10 ml PRN PRN Administration LINE FLUSH Tamsulosin HCl 0.4 mg 11/19/18 13:00 11/25/18 10:37 Flomax PO 0.4 mg QDAY DOMINICK Administration Venlafaxine HCl 100 mg 11/16/18 14:00 11/25/18 17:51 Effexor PO 100 mg TID DOMINICK Administration Nutrition/Malnutrition Assess - Dietary Evaluation Nutrition/Malnutrition Findings: Nutrition Notes Start: 11/16/18 08: 00 Freq: Status: Active Protocol: Document 11/25/18 09:29 (Rec: 11/25/18 10:37 [id number]) Co-Sign 11/25/18 09:29 LP Nutrition Notes Initial or Follow up Reassessment Current Diagnosis COPD,Coronary Artery Disease, Hypertension Other Pertinent Diagnosis Nicotine dependence Current Diet Mechanical soft Labs/Tests Reviewed Pertinent Medications Solumedrol Height 5 ft 2 in Weight 75.5 kg [place] Body Weight (kg) 50.00 BMI 30.4 Subjective/Other Information Pt reports eating 100% of meals and tolerating current diet. Pt ate 25% of breakfast due to indigestion, fruit was given to supplement. Percent of energy/protein needs met: 100%/100% Burn Absent Trauma Absent Minimum of two criteria No #1 Nutrition Diagnosis Inadequate oral intake Etiology Dislike of food As Evidenced by Signs and Symptoms Pt ate 75% of diet Diagnosis Progress(for reassessment Improved documentation) Is patient on ventilator? No Is Patient Ambulatory and/or Out of Bed No REE-([facility]-confined to bed) [phone] Calculation Used for Recommendations [facility] Additional Notes Protein: 75-90g (1.0-1.2g/kg) Fluid: 1 ml/kcal Nutrition Intervention Change Diet Order: Continue mechanical soft Nutrition Support: D/C Goal #1 Continue to meet at least 75% energy and protein needs Anticipated Discharge Needs: Mechanical soft Follow-Up By: 11/30/18 Additional Comments F/U for intakes
[2018-11-26] MEDS: ACETAMINOPHEN 325 MG TAB PO PRN (06:31)
[2018-11-26] MEDS: methylPREDNISolone Sod Succinate 40 MG/1 ML INJ IV SCH ×2 (06:31→18:27)
--- NOTE | 2018-11-26 06:50 | Progress Note ---
Assessment and Plan -Acute and chronic hypoxic-hypercapnic respiratory failure -AE-COPD -HAP -Tobacco use disorder/Nicotine dependence( on going) -Hypernatremia -History of HTN, hypotensive at presentation -Chronic narcotic dependence -Chronic back pain -Anxiety disorder -Oxygen restrictive strategies- PaO2 of 60 with O2 sats 88-90% is acceptable -Bronchodilators -Maintenance of sleep-wake cycle, avoid delirium -Stop NS infusion, and change to D5 0.2Nsaline -ABG, CBC and BMP prn -Accuchecks with glycemic control -VTE prophylaxis(enoxaparin) -Stress ulcer prophylaxis( Famotidine) -Steroids -Bronchodilators -Avoid delirium -Nicotine withdrawal precautions, nicotine patch CONDITION: FAIR PROGNOSIS: GUARDED CODE STATUS: FULL CODE Subjective Date of service: 11/26/18 Principal diagnosis: Ac and ch hypoxic hypercapnic resp failure; AE-COPD; Tobacco use disorder Interval history: Patient is seen today for: Ac and ch hypoxic hypercapnic resp failure; AE-COPD; Tobacco use disorder/Nicotine dependence; Hypernatremia; HTN (hypotensive at presentation ); Chronic narcotic dependence ; Chronic back pain; Anxiety disorder Seen and examined at bedside; 24-hour events reviewed; nursing and respiratory care staff consulted; no adverse overnight events reported to me; laying in bed ; No emesis or overt aspiration; no fevers, Objective Vital Signs - 12hr 11/25/18 11/25/18 11/25/18 19:33 20:42 20:43 Temperature Pulse Rate 96 H Pulse Rate [ 88 Anterior Bilateral] Pulse Rate [ 89 Bilateral Bases ] Respiratory 18 Rate Respiratory 18 Rate [Anterior Bilateral] Respiratory 18 Rate [Bilateral Bases] Blood Pressure O2 Sat by Pulse 94 94 Oximetry 11/26/18 11/26/18 11/26/18 00:24 06:26 06:30 Temperature 97.9 F 98.7 F Pulse Rate 102 H 92 H Pulse Rate [ Anterior Bilateral] Pulse Rate [ Bilateral Bases ] Respiratory 22 18 Rate Respiratory Rate [Anterior Bilateral] Respiratory Rate [Bilateral Bases] Blood Pressure 117/61 142/73 O2 Sat by Pulse 94 97 Oximetry Constitutional: no acute distress, alert Eyes: non-icteric ENT: oropharynx moist Neck: supple, no lymphadenopathy, no JVD, other Effort: mildly labored Ascultation: Bilateral: diminished breath sounds, rhonchi Percussion: Bilateral: not dull Cardiovascular: regular rate and rhythm Gastrointestinal: normoactive bowel sounds, soft, non-tender, non-distended Integumentary: normal Extremities: no cyanosis, no edema, pink and warm, pulses normal Neurologic: normal mental status, non-focal exam (grossly), pupils equal and round, CN II-XII normal, motor strength normal and Psychiatric: mood appropriate, affect normal CBC and BMP: 11/27/18 05:04 11/24/18 05:57 ABG, PT/INR, D-dimer: ABG POC ABG pH 7.488 (7.35-7.45) H 11/22/18 14:54 ABG pH 7.247 pH Units (7.350-7.450) L 11/16/18 05:10 POC ABG pCO2 48.1 (35-45) H 11/22/18 14:54 ABG pCO2 64.0 mm Hg 11/16/18 05:10 POC ABG pO2 69 (80-105) L 11/22/18 14:54 ABG pO2 65.7 mm Hg (80.0-90.0) L 11/16/18 05:10 POC ABG HCO3 36.5 (22-26 mml/L) 11/22/18 14:54 POC ABG Total CO2 38 (23-27mmol/L) 11/22/18 14:54 POC ABG O2 Sat 95 11/22/18 14:54 ABG O2 Saturation 89.9 % (95.0-99.0) L 11/16/18 05:10 PT/INR, D-dimer PT 14.1 Sec. (12.2-14.9) 11/14/18 19:39 INR 1.12 (0.87-1.13) 11/14/18 19:39 Abnormal lab findings: Abnormal Labs 11/14/18 11/14/18 11/14/18 18:59 19:39 19:39 WBC RBC 5.30 H MCV MCH 23 L MCHC 29 L RDW 20.5 H Plt Count 132 L Lymph % (Auto) 7.2 L Lymph # 0.6 L Seg Neutrophils % 87.1 H Seg Neuts % (Manual) Lymphocytes % (Manual) Seg Neutrophils # Seg Neutrophils # Man Lymphocytes # (Manual) POC ABG pH ABG pH POC ABG pCO2 POC ABG pO2 ABG pO2 ABG HCO3 ABG O2 Saturation ABG Base Excess ABG Hemoglobin ABG Carboxyhemoglobin Oxyhemoglobin Sodium 147 H Potassium Chloride Carbon Dioxide 35 H BUN Creatinine 0.4 L Glucose 121 H POC Glucose 129 H Calcium ALT 6 L Total Protein 6.2 L Albumin 3.4 L 11/14/18 11/15/18 11/15/18 20:45 04:20 04:20 WBC RBC 5.36 H MCV 78 L MCH 22 L MCHC 28 L RDW 20.5 H Plt Count 124 L Lymph % (Auto) Lymph # Seg Neutrophils % Seg Neuts % (Manual) 92.0 H Lymphocytes % (Manual) 6.0 L Seg Neutrophils # Seg Neutrophils # Man Lymphocytes # (Manual) 0.4 L POC ABG pH ABG pH 7.346 L POC ABG pCO2 POC ABG pO2 ABG pO2 ABG HCO3 32.4 H ABG O2 Saturation ABG Base Excess 5.3 H ABG Hemoglobin 11.0 L ABG Carboxyhemoglobin 6.4 H Oxyhemoglobin 90.0 L Sodium 146 H Potassium Chloride 107.6 H Carbon Dioxide BUN Creatinine 0.4 L Glucose 132 H POC Glucose Calcium 8.1 L ALT Total Protein Albumin 11/15/18 11/15/18 11/15/18 06:18 12:36 18:06 WBC RBC MCV MCH MCHC RDW Plt Count Lymph % (Auto) Lymph # Seg Neutrophils % Seg Neuts % (Manual) Lymphocytes % (Manual) Seg Neutrophils # Seg Neutrophils # Man Lymphocytes # (Manual) POC ABG pH 7.291 L ABG pH POC ABG pCO2 65.4 H POC ABG pO2 65 L ABG pO2 ABG HCO3 ABG O2 Saturation ABG Base Excess ABG Hemoglobin ABG Carboxyhemoglobin Oxyhemoglobin Sodium Potassium Chloride Carbon Dioxide BUN Creatinine Glucose POC Glucose 149 H 171 H Calcium ALT Total Protein Albumin 11/15/18 11/16/18 11/16/18 23:42 00:11 00:11 WBC 11.2 H RBC MCV 77 L MCH 22 L MCHC 28 L RDW 21.3 H Plt Count 136 L Lymph % (Auto) Lymph # Seg Neutrophils % Seg Neuts % (Manual) 89.0 H Lymphocytes % (Manual) 6.0 L Seg Neutrophils # Seg Neutrophils # Man 10.0 H Lymphocytes # (Manual) 0.7 L POC ABG pH ABG pH POC ABG pCO2 POC ABG pO2 ABG pO2 ABG HCO3 ABG O2 Saturation ABG Base Excess ABG Hemoglobin ABG Carboxyhemoglobin Oxyhemoglobin Sodium Potassium 5.4 H D Chloride 109.5 H Carbon Dioxide BUN 18 H Creatinine 0.5 L Glucose 118 H POC Glucose 134 H Calcium ALT Total Protein Albumin 11/16/18 11/16/18 11/16/18 05:10 06:55 12:22 WBC RBC MCV MCH MCHC RDW Plt Count Lymph % (Auto) Lymph # Seg Neutrophils % Seg Neuts % (Manual) Lymphocytes % (Manual) Seg Neutrophils # Seg Neutrophils # Man Lymphocytes # (Manual) POC ABG pH ABG pH 7.247 L POC ABG pCO2 POC ABG pO2 ABG pO2 65.7 L ABG HCO3 27.3 H ABG O2 Saturation 89.9 L ABG Base Excess ABG Hemoglobin 10.5 L ABG Carboxyhemoglobin Oxyhemoglobin 87.9 L Sodium Potassium Chloride Carbon Dioxide BUN Creatinine Glucose POC Glucose 116 H 106 H Calcium ALT Total Protein Albumin 11/16/18 11/17/18 11/17/18 18:04 04:56 09:26 WBC 15.1 H RBC MCV 77 L MCH 22 L MCHC 28 L RDW 20.4 H Plt Count 134 L Lymph % (Auto) Lymph # Seg Neutrophils % Seg Neuts % (Manual) Lymphocytes % (Manual) Seg Neutrophils # Seg Neutrophils # Man Lymphocytes # (Manual) POC ABG pH 7.335 L ABG pH POC ABG pCO2 58.2 H POC ABG pO2 74 L ABG pO2 ABG HCO3 ABG O2 Saturation ABG Base Excess ABG Hemoglobin ABG Carboxyhemoglobin Oxyhemoglobin Sodium Potassium Chloride Carbon Dioxide BUN Creatinine Glucose POC Glucose 117 H Calcium ALT Total Protein Albumin 11/17/18 11/17/18 11/17/18 09:26 18:03 23:49 WBC RBC MCV MCH MCHC RDW Plt Count Lymph % (Auto) Lymph # Seg Neutrophils % Seg Neuts % (Manual) Lymphocytes % (Manual) Seg Neutrophils # Seg Neutrophils # Man Lymphocytes # (Manual) POC ABG pH ABG pH POC ABG pCO2 POC ABG pO2 ABG pO2 ABG HCO3 ABG O2 Saturation ABG Base Excess ABG Hemoglobin ABG Carboxyhemoglobin Oxyhemoglobin Sodium 149 H Potassium Chloride 109.0 H Carbon Dioxide BUN 22 H Creatinine 0.4 L Glucose POC Glucose 128 H 129 H Calcium ALT Total Protein Albumin 11/18/18 11/18/18 11/18/18 04:00 06:15 09:35 WBC RBC MCV 76 L MCH 22 L MCHC 29 L RDW 20.3 H Plt Count 111 L Lymph % (Auto) Lymph # Seg Neutrophils % Seg Neuts % (Manual) Lymphocytes % (Manual) Seg Neutrophils # Seg Neutrophils # Man Lymphocytes # (Manual) POC ABG pH ABG pH POC ABG pCO2 54.2 H POC ABG pO2 62 L ABG pO2 ABG HCO3 ABG O2 Saturation ABG Base Excess ABG Hemoglobin ABG Carboxyhemoglobin Oxyhemoglobin Sodium Potassium Chloride Carbon Dioxide BUN Creatinine Glucose POC Glucose 144 H Calcium ALT Total Protein Albumin 11/18/18 11/18/18 11/18/18 09:35 12:23 18:21 WBC RBC MCV MCH MCHC RDW Plt Count Lymph % (Auto) Lymph # Seg Neutrophils % Seg Neuts % (Manual) Lymphocytes % (Manual) Seg Neutrophils # Seg Neutrophils # Man Lymphocytes # (Manual) POC ABG pH ABG pH POC ABG pCO2 POC ABG pO2 ABG pO2 ABG HCO3 ABG O2 Saturation ABG Base Excess ABG Hemoglobin ABG Carboxyhemoglobin Oxyhemoglobin Sodium 149 H Potassium Chloride 109.5 H Carbon Dioxide 31 H BUN 20 H Creatinine 0.4 L Glucose 137 H POC Glucose 140 H 160 H Calcium ALT Total Protein Albumin 11/18/18 11/19/18 11/19/18 23:55 04:12 05:41 WBC RBC MCV MCH MCHC RDW Plt Count Lymph % (Auto) Lymph # Seg Neutrophils % Seg Neuts % (Manual) Lymphocytes % (Manual) Seg Neutrophils # Seg Neutrophils # Man Lymphocytes # (Manual) POC ABG pH 7.345 L ABG pH POC ABG pCO2 64.9 H POC ABG pO2 69 L ABG pO2 ABG HCO3 ABG O2 Saturation ABG Base Excess ABG Hemoglobin ABG Carboxyhemoglobin Oxyhemoglobin Sodium Potassium Chloride Carbon Dioxide BUN Creatinine Glucose POC Glucose 151 H 145 H Calcium ALT Total Protein Albumin 11/19/18 11/19/18 11/19/18 09:25 11:25 17:55 WBC RBC MCV MCH MCHC RDW Plt Count Lymph % (Auto) Lymph # Seg Neutrophils % Seg Neuts % (Manual) Lymphocytes % (Manual) Seg Neutrophils # Seg Neutrophils # Man Lymphocytes # (Manual) POC ABG pH 7.346 L ABG pH POC ABG pCO2 65.3 H POC ABG pO2 71 L ABG pO2 ABG HCO3 ABG O2 Saturation ABG Base Excess ABG Hemoglobin ABG Carboxyhemoglobin Oxyhemoglobin Sodium 150 H Potassium Chloride 109.4 H Carbon Dioxide 32 H BUN 21 H Creatinine 0.3 L Glucose 149 H POC Glucose 160 H Calcium ALT Total Protein Albumin 11/19/18 11/19/18 11/20/18 17:58 23:15 04:06 WBC RBC MCV MCH MCHC RDW Plt Count Lymph % (Auto) Lymph # Seg Neutrophils % Seg Neuts % (Manual) Lymphocytes % (Manual) Seg Neutrophils # Seg Neutrophils # Man Lymphocytes # (Manual) POC ABG pH ABG pH POC ABG pCO2 55.6 H POC ABG pO2 66 L ABG pO2 ABG HCO3 ABG O2 Saturation ABG Base Excess ABG Hemoglobin ABG Carboxyhemoglobin Oxyhemoglobin Sodium Potassium Chloride Carbon Dioxide BUN Creatinine Glucose POC Glucose 171 H 156 H Calcium ALT Total Protein Albumin 11/20/18 11/20/18 11/20/18 04:39 04:39 05:14 WBC 12.0 H RBC MCV 76 L MCH 22 L MCHC 29 L RDW 19.7 H Plt Count 80 L Lymph % (Auto) Lymph # Seg Neutrophils % Seg Neuts % (Manual) Lymphocytes % (Manual) Seg Neutrophils # Seg Neutrophils # Man Lymphocytes # (Manual) POC ABG pH ABG pH POC ABG pCO2 POC ABG pO2 ABG pO2 ABG HCO3 ABG O2 Saturation ABG Base Excess ABG Hemoglobin ABG Carboxyhemoglobin Oxyhemoglobin Sodium 151 H Potassium Chloride 109.0 H Carbon Dioxide 33 H BUN 18 H Creatinine 0.3 L Glucose 146 H POC Glucose 137 H Calcium ALT Total Protein Albumin 11/20/18 11/20/18 11/20/18 12:28 17:24 23:37 WBC RBC MCV MCH MCHC RDW Plt Count Lymph % (Auto) Lymph # Seg Neutrophils % Seg Neuts % (Manual) Lymphocytes % (Manual) Seg Neutrophils # Seg Neutrophils # Man Lymphocytes # (Manual) POC ABG pH ABG pH POC ABG pCO2 POC ABG pO2 ABG pO2 ABG HCO3 ABG O2 Saturation ABG Base Excess ABG Hemoglobin ABG Carboxyhemoglobin Oxyhemoglobin Sodium Potassium Chloride Carbon Dioxide BUN Creatinine Glucose POC Glucose 162 H 161 H 147 H Calcium ALT Total Protein Albumin 11/21/18 11/21/18 11/21/18 04:38 04:38 05:27 WBC RBC MCV 75 L MCH 22 L MCHC RDW 20.2 H Plt Count 82 L Lymph % (Auto) 4.8 L Lymph # 0.4 L Seg Neutrophils % 87.5 H Seg Neuts % (Manual) Lymphocytes % (Manual) Seg Neutrophils # Seg Neutrophils # Man Lymphocytes # (Manual) POC ABG pH ABG pH POC ABG pCO2 POC ABG pO2 ABG pO2 ABG HCO3 ABG O2 Saturation ABG Base Excess ABG Hemoglobin ABG Carboxyhemoglobin Oxyhemoglobin Sodium Potassium Chloride Carbon Dioxide 34 H BUN 18 H Creatinine 0.2 L Glucose 163 H POC Glucose 171 H Calcium ALT Total Protein Albumin 11/21/18 11/21/18 11/21/18 12:13 15:12 18:04 WBC RBC MCV MCH MCHC RDW Plt Count Lymph % (Auto) Lymph # Seg Neutrophils % Seg Neuts % (Manual) Lymphocytes % (Manual) Seg Neutrophils # Seg Neutrophils # Man Lymphocytes # (Manual) POC ABG pH ABG pH POC ABG pCO2 51.4 H POC ABG pO2 71 L ABG pO2 ABG HCO3 ABG O2 Saturation ABG Base Excess ABG Hemoglobin ABG Carboxyhemoglobin Oxyhemoglobin Sodium Potassium Chloride Carbon Dioxide BUN Creatinine Glucose POC Glucose 184 H 154 H Calcium ALT Total Protein Albumin 11/21/18 11/22/18 11/22/18 23:46 04:18 04:18 WBC RBC MCV 75 L MCH 23 L MCHC RDW 19.7 H Plt Count 80 L Lymph % (Auto) 3.8 L Lymph # 0.3 L Seg Neutrophils % 88.6 H Seg Neuts % (Manual) Lymphocytes % (Manual) Seg Neutrophils # Seg Neutrophils # Man Lymphocytes # (Manual) POC ABG pH ABG pH POC ABG pCO2 POC ABG pO2 ABG pO2 ABG HCO3 ABG O2 Saturation ABG Base Excess ABG Hemoglobin ABG Carboxyhemoglobin Oxyhemoglobin Sodium Potassium Chloride Carbon Dioxide 34 H BUN 20 H Creatinine 0.2 L Glucose 143 H POC Glucose 170 H Calcium ALT Total Protein Albumin 11/22/18 11/22/18 11/22/18 05:27 12:58 14:54 WBC RBC MCV MCH MCHC RDW Plt Count Lymph % (Auto) Lymph # Seg Neutrophils % Seg Neuts % (Manual) Lymphocytes % (Manual) Seg Neutrophils # Seg Neutrophils # Man Lymphocytes # (Manual) POC ABG pH 7.488 H ABG pH POC ABG pCO2 48.1 H POC ABG pO2 69 L ABG pO2 ABG HCO3 ABG O2 Saturation ABG Base Excess ABG Hemoglobin ABG Carboxyhemoglobin Oxyhemoglobin Sodium Potassium Chloride Carbon Dioxide BUN Creatinine Glucose POC Glucose 140 H 108 H Calcium ALT Total Protein Albumin 11/22/18 11/23/18 11/23/18 18:34 00:03 05:32 WBC RBC MCV MCH MCHC RDW Plt Count Lymph % (Auto) Lymph # Seg Neutrophils % Seg Neuts % (Manual) Lymphocytes % (Manual) Seg Neutrophils # Seg Neutrophils # Man Lymphocytes # (Manual) POC ABG pH ABG pH POC ABG pCO2 POC ABG pO2 ABG pO2 ABG HCO3 ABG O2 Saturation ABG Base Excess ABG Hemoglobin ABG Carboxyhemoglobin Oxyhemoglobin Sodium Potassium Chloride Carbon Dioxide BUN Creatinine Glucose POC Glucose 152 H 141 H 108 H Calcium ALT Total Protein Albumin 11/23/18 11/23/18 11/23/18 11:35 16:07 21:54 WBC RBC MCV MCH MCHC RDW Plt Count Lymph % (Auto) Lymph # Seg Neutrophils % Seg Neuts % (Manual) Lymphocytes % (Manual) Seg Neutrophils # Seg Neutrophils # Man Lymphocytes # (Manual) POC ABG pH ABG pH POC ABG pCO2 POC ABG pO2 ABG pO2 ABG HCO3 ABG O2 Saturation ABG Base Excess ABG Hemoglobin ABG Carboxyhemoglobin Oxyhemoglobin Sodium Potassium Chloride Carbon Dioxide BUN Creatinine Glucose POC Glucose 123 H 117 H 163 H Calcium ALT Total Protein Albumin 11/24/18 11/24/18 11/24/18 05:57 05:57 11:32 WBC 14.7 H RBC MCV 74 L MCH 23 L MCHC RDW 20.8 H Plt Count 118 L Lymph % (Auto) 2.3 L Lymph # 0.3 L Seg Neutrophils % Seg Neuts % (Manual) 96.0 H Lymphocytes % (Manual) 0 L Seg Neutrophils # 13.4 H Seg Neutrophils # Man 14.1 H Lymphocytes # (Manual) 0.0 L POC ABG pH ABG pH POC ABG pCO2 POC ABG pO2 ABG pO2 ABG HCO3 ABG O2 Saturation ABG Base Excess ABG Hemoglobin ABG Carboxyhemoglobin Oxyhemoglobin Sodium Potassium Chloride Carbon Dioxide 32 H BUN Creatinine 0.3 L Glucose 111 H POC Glucose 113 H Calcium ALT Total Protein Albumin 11/24/18 11/24/18 11/25/18 16:35 21:33 11:12 WBC RBC MCV MCH MCHC RDW Plt Count Lymph % (Auto) Lymph # Seg Neutrophils % Seg Neuts % (Manual) Lymphocytes % (Manual) Seg Neutrophils # Seg Neutrophils # Man Lymphocytes # (Manual) POC ABG pH ABG pH POC ABG pCO2 POC ABG pO2 ABG pO2 ABG HCO3 ABG O2 Saturation ABG Base Excess ABG Hemoglobin ABG Carboxyhemoglobin Oxyhemoglobin Sodium Potassium Chloride Carbon Dioxide BUN Creatinine Glucose POC Glucose 121 H 120 H 194 H Calcium ALT Total Protein Albumin 11/25/18 11/25/18 16:45 22:14 WBC RBC MCV MCH MCHC RDW Plt Count Lymph % (Auto) Lymph # Seg Neutrophils % Seg Neuts % (Manual) Lymphocytes % (Manual) Seg Neutrophils # Seg Neutrophils # Man Lymphocytes # (Manual) POC ABG pH ABG pH POC ABG pCO2 POC ABG pO2 ABG pO2 ABG HCO3 ABG O2 Saturation ABG Base Excess ABG Hemoglobin ABG Carboxyhemoglobin Oxyhemoglobin Sodium Potassium Chloride Carbon Dioxide BUN Creatinine Glucose POC Glucose 160 H 154 H Calcium ALT Total Protein Albumin Chest x-ray: image reviewed Allied health notes reviewed: nursing
[2018-11-26] MEDS: BUDESONIDE 0.5 MG/2 ML NEBU IH SCH ×2 (08:00→20:03)
[2018-11-26] MEDS: ARFORMOTEROL 15 MCG/2 ML NEBU IH SCH ×2 (08:00→20:03)
[2018-11-26] MEDS: IPRATROPIUM/ALBUTEROL SULFATE 3 ML AMPUL.NEB IH SCH ×2 (08:00→20:03)
[2018-11-26] MEDS: INSULIN LISPRO 100 UNIT/ML SUB-Q SCH ×4 (09:19→22:12)
[2018-11-26] MEDS: VENLAFAXINE 25 MG TAB PO SCH ×3 (09:49→22:11)
[2018-11-26] MEDS ORDERED: NITROGLYCERIN 0.4 MG TAB SUBL SL PRN (10:16)
[2018-11-26] MEDS ORDERED: ASPIRIN 325 MG TAB PO ONE (10:24)
[2018-11-26] MEDS ORDERED: HEPARIN 10,000 UNITS/10 ML VIAL IV ONE (10:44)
--- NOTE | 2018-11-26 10:53 | Progress Note ---
Assessment and Plan Assessment and plan: --ST elevation RI; Aspirin 325 mg , beta blockers, stevenson inhibitors, nitrates, statins Heparin drip, serial cardiac enzymes, echocardiogram for LV function Cardiology evaluated the patient,no need for stat heart cath NPO midnight, left heart catheterization tomorrow Transfer the patient to telemetry --Acute on chronic combined respiratory failure requiring intubation: s/p extubation ,on ventimask 35% 02 sats > 94% antibiotics per ID. Nebulizes steroids pulmonology following --Anxiety: low dose Xanax,supportive care --End-stage COPD; acute exacerbation with chronic hypoxia treat with iv steriods continue taper, abx, nebs supportive care -- Sepsis/pneumonia, tracheal aspirate MRSA;cont linezolid, per ID Contact isolation --Hypernatremia, resolved --Malignant HTN (hypertension).; Well controlled Continue current antihypertensives and when necessary hydralazine --Sinus tachycardia; probably secondary to agitation Supportive care --Nicotine dependence; nicotine patch when necessary. --Thrombocytopenia stable no active bleeding.Hematology following --DVt Px; SCDs No pharmacologic anticoagulation in view of thrombocytopenia --Full code Transfer to telemetry Possible heart cath tomorrow Plan of care Care reviewed with the patient and her nurse Critical care time 35 minutes Brief history: 58 y/o female patient with hx of COPD who presented to the ED via EMS on account of worsening sob. Apparently, the patient called 911 for shortness of breath. Per, EMS, he was noted to be saturating in the 60's in the field. She was given albuterol, steroids, and magnesium in the field. On arrival to the ED, the patient was altered, She was emergently intubated and placed on MV. Patient also has sepsis secondary to pneumonia, evaluated by pulmonary critical, tracheal aspirate MRSA ,on linezolid per ID, Extubated on 11/22/18 at 5 pm transfer to floor. Patient is receiving physical therapy occupational therapy Still confused at times, today developed chest pain and ST elevation RI, evaluated by cardiology, transfer to telemetry, possible heart cath tomorrow, History Interval history: Nurse eported that patient complained of some chest pain this morning EKG obtained, ST elevation changes in the inferior leads. I Reviewed the EKG immediately ST elevations in inferior leads I Compared with the old EKG which had inferior wall ST changes. And hence Code STEMI was not called. However I immediately discussed with county program technician Dr Johnson, who reviewed both the EKGs Examined the patient and informed that patient does not need an emergency heart cath. To transfer the patient to telemetry on heparin drip and possible heart cath tomorrow. On examination the patient is comfortable and denies any chest pain or shortness of breath Eating her breakfast, not in acute distress Vital signs reviewed, stable Hospitalist Physical - Constitutional Vitals: Temp Pulse Resp BP Pulse Ox 97.2 F L 83 22 131/66 97 11/26/18 09:15 11/26/18 09:15 11/26/18 09:15 11/26/18 09:15 11/26/18 09:15 General appearance: Present: no acute distress, well-nourished - EENT Eyes: Present: PERRL, EOM intact - Neck Neck: Present: supple, normal ROM - Respiratory Respiratory effort: normal Respiratory: bilateral: diminished, negative: rales, rhonchi, wheezing - Cardiovascular Rhythm: regular Heart Sounds: Present: S1 & S2 - Extremities Extremities: no ischemia, No edema - Abdominal General gastrointestinal: soft, non-tender, non-distended, normal bowel sounds - Integumentary Integumentary: Present: clear, warm - Psychiatric Psychiatric: appropriate mood/affect, cooperative - Neurologic Neurologic: CNII-XII intact, moves all extremities Results - Labs CBC & Chem 7: 11/26/18 13:42 11/24/18 05:57 Labs: Laboratory Last Values WBC 14.7 K/mm3 (4.5-11.0) H 11/24/18 05:57 RBC 4.97 M/mm3 (3.65-5.03) 11/24/18 05:57 Hgb 11.3 gm/dl (10.1-14.3) 11/24/18 05:57 Hct 37.0 % (30.3-42.9) 11/24/18 05:57 MCV 74 fl (79-97) L 11/24/18 05:57 MCH 23 pg (28-32) L 11/24/18 05:57 MCHC 31 % (30-34) 11/24/18 05:57 RDW 20.8 % (13.2-15.2) H 11/24/18 05:57 Plt Count 118 K/mm3 (140-440) L 11/24/18 05:57 Lymph % (Auto) 2.3 % (13.4-35.0) L 11/24/18 05:57 [place] % (Auto) 5.1 % (0.0-7.3) 11/24/18 05:57 Eos % (Auto) 0.0 % (0.0-4.3) 11/22/18 04:18 Baso % (Auto) 0.3 % (0.0-1.8) 11/22/18 04:18 Lymph # 0.3 K/mm3 (1.2-5.4) L 11/24/18 05:57 [place] # 0.6 K/mm3 (0.0-0.8) 11/22/18 04:18 Eos # 0.0 K/mm3 (0.0-0.4) 11/22/18 04:18 Baso # 0.0 K/mm3 (0.0-0.1) 11/22/18 04:18 Add Manual Diff Complete 11/24/18 05:57 Total Counted 100 11/24/18 05:57 Seg Neutrophils % Device Sales Consultant 11/24/18 05:57 Seg Neuts % (Manual) 96.0 % (40.0-70.0) H 11/24/18 05:57 Band Neutrophils % 0 % 11/24/18 05:57 Lymphocytes % (Manual) 0 % (13.4-35.0) L 11/24/18 05:57 Reactive Lymphs % (Man) 0 % 11/24/18 05:57 Monocytes % (Manual) 2.0 % (0.0-7.3) 11/24/18 05:57 Eosinophils % (Manual) 0 % (0.0-4.3) 11/24/18 05:57 Basophils % (Manual) 0 % (0.0-1.8) 11/24/18 05:57 Metamyelocytes % 0 % 11/24/18 05:57 Myelocytes % 2.0 % 11/24/18 05:57 Promyelocytes % 0 % 11/24/18 05:57 Blast Cells % 0 % 11/24/18 05:57 Nucleated RBC % Not Reportable 11/24/18 05:57 Seg Neutrophils # 13.4 K/mm3 (1.8-7.7) H 11/24/18 05:57 Seg Neutrophils # Man 14.1 K/mm3 (1.8-7.7) H 11/24/18 05:57 Band Neutrophils # 0.0 K/mm3 11/24/18 05:57 Lymphocytes # (Manual) 0.0 K/mm3 (1.2-5.4) L 11/24/18 05:57 Abs React Lymphs (Man) 0.0 K/mm3 11/24/18 05:57 Monocytes # (Manual) 0.3 K/mm3 (0.0-0.8) 11/24/18 05:57 Eosinophils # (Manual) 0.0 K/mm3 (0.0-0.4) 11/24/18 05:57 Basophils # (Manual) 0.0 K/mm3 (0.0-0.1) 11/24/18 05:57 Metamyelocytes # 0.0 K/mm3 11/24/18 05:57 Myelocytes # 0.3 K/mm3 11/24/18 05:57 Promyelocytes # 0.0 K/mm3 11/24/18 05:57 Blast Cells # 0.0 K/mm3 11/24/18 05:57 WBC Morphology Not Reportable 11/24/18 05:57 Hypersegmented Neuts Not Reportable 11/24/18 05:57 Hyposegmented Neuts Not Reportable 11/24/18 05:57 Hypogranular Neuts Not Reportable 11/24/18 05:57 Smudge Cells Not Reportable 11/24/18 05:57 Toxic Granulation Not Reportable 11/24/18 05:57 Toxic Vacuolation Not Reportable 11/24/18 05:57 Dohle Bodies Not Reportable 11/24/18 05:57 Pelger-Huet Anomaly Not Reportable 11/24/18 05:57 Neha Rods Not Reportable 11/24/18 05:57 Platelet Estimate Consistent w auto 11/24/18 05:57 Clumped Platelets Not Reportable 11/24/18 05:57 Plt Clumps, EDTA Not Reportable 11/24/18 05:57 Large Platelets Not Reportable 11/24/18 05:57 Giant Platelets Rare 11/24/18 05:57 Platelet Satelliting Not Reportable 11/24/18 05:57 Plt Morphology Comment Not Reportable 11/24/18 05:57 RBC Morphology Not Reportable 11/24/18 05:57 Dimorphic RBCs Not Reportable 11/24/18 05:57 Polychromasia Not Reportable 11/24/18 05:57 Hypochromasia 1+ 11/24/18 05:57 Poikilocytosis Not Reportable 11/24/18 05:57 Anisocytosis 1+ 11/24/18 05:57 Microcytosis Not Reportable 11/24/18 05:57 Macrocytosis Not Reportable 11/24/18 05:57 Spherocytes Not Reportable 11/24/18 05:57 Pappenheimer Bodies Not Reportable 11/24/18 05:57 Sickle Cells Not Reportable 11/24/18 05:57 Target Cells Not Reportable 11/24/18 05:57 Tear Drop Cells Not Reportable 11/24/18 05:57 Ovalocytes Not Reportable 11/24/18 05:57 Helmet Cells Not Reportable 11/24/18 05:57 [place] Bodies Not Reportable 11/24/18 05:57 [place] Rings Not Reportable 11/24/18 05:57 [place] Cells Not Reportable 11/24/18 05:57 Bite Cells Not Reportable 11/24/18 05:57 Crenated Cell Not Reportable 11/24/18 05:57 Elliptocytes Not Reportable 11/24/18 05:57 Acanthocytes (Spur) Not Reportable 11/24/18 05:57 Rouleaux Not Reportable 11/24/18 05:57 Hemoglobin C Crystals Not Reportable 11/24/18 05:57 Schistocytes Not Reportable 11/24/18 05:57 Malaria parasites Not Reportable 11/24/18 05:57 Hernan Bodies Not Reportable 11/24/18 05:57 Hem Pathologist Commnt No 11/24/18 05:57 PT 14.1 Sec. (12.2-14.9) 11/14/18 19:39 INR 1.12 (0.87-1.13) 11/14/18 19:39 POC ABG pH 7.488 (7.35-7.45) H 11/22/18 14:54 ABG pH 7.247 pH Units (7.350-7.450) L 11/16/18 05:10 POC ABG pCO2 48.1 (35-45) H 11/22/18 14:54 ABG pCO2 64.0 mm Hg 11/16/18 05:10 POC ABG pO2 69 (80-105) L 11/22/18 14:54 ABG pO2 65.7 mm Hg (80.0-90.0) L 11/16/18 05:10 POC ABG HCO3 36.5 (22-26 mml/L) 11/22/18 14:54 ABG HCO3 27.3 mmol/L (20.0-26.0) H 11/16/18 05:10 POC ABG Total CO2 38 (23-27mmol/L) 11/22/18 14:54 POC ABG O2 Sat 95 11/22/18 14:54 ABG O2 Saturation 89.9 % (95.0-99.0) L 11/16/18 05:10 ABG O2 Content 13.0 (0.0-44) 11/16/18 05:10 POC ABG Base Excess 13 ((-2) - (+3)mmol/L) 11/22/18 14:54 ABG Base Excess -0.9 mmol/L (-2.0-3.0) 11/16/18 05:10 ABG Hemoglobin 10.5 gm/dl (12.0-16.0) L 11/16/18 05:10 ABG Carboxyhemoglobin 1.7 % (0.0-5.0) 11/16/18 05:10 ABG Methemoglobin 0.5 % (0.0-1.5) 11/16/18 05:10 Oxyhemoglobin 87.9 % (95.0-99.0) L 11/16/18 05:10 FiO2 50 % 11/22/18 14:54 Sodium 143 mmol/L (137-145) 11/24/18 05:57 Potassium 3.9 mmol/L (3.6-5.0) 11/24/18 05:57 Chloride 103.1 mmol/L (98-107) 11/24/18 05:57 Carbon Dioxide 32 mmol/L (22-30) H 11/24/18 05:57 Anion Gap 12 mmol/L 11/24/18 05:57 BUN 12 mg/dL (7-17) 11/24/18 05:57 Creatinine 0.3 mg/dL (0.7-1.2) L 11/24/18 05:57 Estimated GFR > 60 ml/min 11/24/18 05:57 BUN/Creatinine Ratio 40 % 11/24/18 05:57 Glucose 111 mg/dL (65-100) H 11/24/18 05:57 POC Glucose 76 (70-105) 11/26/18 08:07 Lactic Acid 1.00 mmol/L (0.7-2.0) 11/19/18 15:47 Calcium 8.4 mg/dL (8.4-10.2) 11/24/18 05:57 Magnesium 2.20 mg/dL (1.7-2.3) 11/21/18 04:38 Total Bilirubin 0.20 mg/dL (0.1-1.2) 11/14/18 19:39 AST 13 units/L (5-40) 11/14/18 19:39 ALT 6 units/L (7-56) L 11/14/18 19:39 Alkaline Phosphatase 85 units/L (35-129) 11/14/18 19:39 Troponin T < 0.010 ng/mL (0.00-0.029) 11/15/18 04:20 C-Reactive Protein 0.00 mg/dL (0.00-1.30) 11/19/18 15:47 Total Protein 6.2 g/dL (6.3-8.2) L 11/14/18 19:39 Albumin 3.4 g/dL (3.9-5) L 11/14/18 19:39 Albumin/Globulin Ratio 1.2 % 11/14/18 19:39 Urine Color Yellow (Yellow) 11/14/18 20:29 Urine Turbidity Clear (Clear) 11/14/18 20:29 Urine pH 5.0 (5.0-7.0) 11/14/18 20:29 Ur Specific [place] 1.026 (1.003-1.030) 11/14/18 20:29 Urine Protein 100 mg/dl mg/dL (Negative) 11/14/18 20:29 Urine Glucose (UA) Neg mg/dL (Negative) 11/14/18 20:29 Urine Ketones Neg mg/dL (Negative) 11/14/18 20:29 Urine Blood Sm (Negative) 11/14/18 20:29 Urine Nitrite Neg (Negative) 11/14/18 20:29 Urine Bilirubin Neg (Negative) 11/14/18 20:29 Urine Urobilinogen < 2.0 mg/dL (<2.0) 11/14/18 20:29 Ur Leukocyte Esterase Neg (Negative) 11/14/18 20:29 Urine WBC (Auto) 6.0 /HPF (0.0-6.0) 11/14/18 20:29 Urine RBC (Auto) 16.0 /HPF (0.0-6.0) 11/14/18 20:29 U Epithel Cells (Auto) 1.0 /HPF (0-13.0) 11/14/18 20:29 Urine Bacteria (Auto) 1+ /HPF (Negative) 11/14/18 20: Hyaline Casts 36 /LPF 11/14/18 20:29 Urine Mucus 1+ /HPF 11/14/18 20:29 Vancomycin Trough 12.1 ug/mL (5.0-20.0) 11/19/18 09:25 Active Medications - Current Medications Current Medications: Generic Name Dose Route Start Last Admin Trade Name Freq PRN Reason Stop Dose Admin Acetaminophen 650 mg 11/14/18 22:11 11/26/18 06:31 Tylenol PO 650 mg Q4H PRN Administration Pain MILD(1-3)/Fever >100.5/PRAJAPATI Albuterol 2.5 mg 11/19/18 13:00 Proventil IH Q4HRT PRN Shortness Of Breath Albuterol/Ipratropium 1 ampul 11/23/18 20:00 11/26/18 08:00 Duoneb *Not For Prn Use* IH Not Given Q12HRT DOMINICK Alprazolam 0.25 mg 11/23/18 08:02 11/26/18 09:49 Xanax PO 0.25 mg Q8H PRN Administration Anxiety Arformoterol Tartrate 15 mcg 11/19/18 20:00 11/26/18 08:00 Brovana Nebu IH 15 mcg Q12HRT DOMINICK Administration Aspirin 325 mg 11/27/18 10:00 Aspirin PO QDAY DOMINICK Baclofen 10 mg 11/16/18 11:00 11/25/18 21:57 Lioresal PO 10 mg BID DOMINICK Administration Budesonide 0.5 mg 11/19/18 20:00 11/26/18 08:00 Pulmicort IH 0.5 mg Q12HRT DOMINICK Administration Famotidine 20 mg 11/16/18 10:00 11/25/18 21:57 Pepcid PO 20 mg BID DOMINICK Administration Heparin Sodium (Porcine) 4,000 unit 11/26/18 10:44 Heparin 10,000 Units/10 Ml IV 11/26/18 10:45 ONCE ONE Hydralazine HCl 10 mg 11/20/18 08:30 Apresoline IV Q4HR PRN Hypertension Hydrophilic Ointment 1 applic 11/14/18 19:14 Vaseline Lip Therapy TP Q2HR PRN Dry Lips Heparin Sodium/Sodium Chloride 25,000 unit in 500 mls @ 22.65 mls/hr 11/26/18 11:00 Heparin/ 0.45% Nacl-25,000 Unit/500 Ml IV TITRATE [facility] Protocol 15 UNITS/KG/HR Insulin Human Lispro 0 unit 11/23/18 11:30 11/26/18 09:19 Humalog SUB-Q Not Given ACHS [facility] Protocol Linezolid 600 mg 11/23/18 10:00 11/25/18 21:57 Zyvox PO 11/27/18 23:59 600 mg BID DOMINICK Administration Lorazepam 1 mg 11/20/18 08:15 11/23/18 20:02 Ativan IV 1 mg Q4HR PRN Administration Agitation Methylprednisolone Sodium Succinate 40 mg 11/25/18 18:00 11/26/18 06:31 Solu-Medrol IV 40 mg Q12H DOMINICK Administration Metoprolol Tartrate 12.5 mg 11/26/18 22:00 Lopressor PO BID [facility] Multi-Ingred Cream/Lotion/Oil/Oint 1 applic 11/14/18 19:14 Artificial Tears Ophth Oint OU Q4HR PRN Dry Eye(s) Nicotine 14 mg 11/15/18 16:00 11/25/18 10:38 Habitrol TD 14 mg QDAY DOMINICK Administration Nitroglycerin 0.4 mg 11/26/18 10:16 Nitrostat SL .Q5MIN PRN Chest Pain Ondansetron HCl 4 mg 11/14/18 22:11 11/26/18 09:49 Zofran IV 4 mg Q8H PRN Administration Nausea And Vomiting Quetiapine Fumarate 300 mg 11/20/18 13:17 11/25/18 21:57 Seroquel PO 300 mg BID DOMINICK Administration Sodium Chloride 10 ml 11/15/18 10:00 11/26/18 09:50 Sodium Chloride Flush Syringe 10 Ml IV 10 ml BID DOMINICK Administration Sodium Chloride 10 ml 11/14/18 22:11 11/26/18 06:31 Sodium Chloride Flush Syringe 10 Ml IV 10 ml PRN PRN Administration LINE FLUSH Tamsulosin HCl 0.4 mg 11/19/18 13:00 11/25/18 10:37 Flomax PO 0.4 mg QDAY DOMINICK Administration Venlafaxine HCl 100 mg 11/16/18 14:00 11/26/18 09:49 Effexor PO 100 mg TID DOMINICK Administration Nutrition/Malnutrition Assess - Dietary Evaluation Nutrition/Malnutrition Findings: Nutrition Notes Start: 11/16/18 08:00 Freq: Status: Active Protocol: Document 11/25/18 09:29 (Rec: 11/25/18 10:37 [id number]) Co-Sign 11/25/18 09:29 LP Nutrition Notes Initial or Follow up Reassessment Current Diagnosis COPD,Coronary Artery Disease, Hypertension Other Pertinent Diagnosis Nicotine dependence Current Diet Mechanical soft Labs/Tests Reviewed Pertinent Medications Solumedrol Height 5 ft 2 in Weight 75.5 kg Sophia Body Weight (kg) 50.00 BMI 30.4 Subjective/Other Information Pt reports eating 100% of meals and tolerating current diet. Pt ate 25% of breakfast due to indigestion, fruit was given to supplement. Percent of energy/protein needs met: 100%/100% Burn Absent Trauma Absent Minimum of two criteria N #1 Nutrition Diagnosis Inadequate oral intake Etiology Dislike of food As Evidenced by Signs and Symptoms Pt ate 75% of diet Diagnosis Progress(for reassessment Improved documentation) Is patient on ventilator? No Is Patient Ambulatory and/or Out of Bed No [facility] [phone] Calculation Used [facility]ations [facility] Additional Notes Protein: 75-90g (1.0-1.2g/kg) Fluid: 1 ml/kcal Nutrition Intervention Change Diet Order: Continue mechanical soft Nutrition Support: D/C Goal #1 Continue to meet at least 75% energy and protein needs Anticipated Discharge Needs: Mechanical soft Follow-Up By: 11/30/18 Additional Comments F/U for intakes
[2018-11-26] MEDS ORDERED: HEPARIN/ 0.45% NACL DRIP 25,000 UNIT/500 ML BAG IV SCH (11:00)
[2018-11-26] MEDS: BACLOFEN 10 MG TAB PO SCH ×2 (11:19→22:10)
[2018-11-26] MEDS: QUEtiapine 100 MG TAB PO SCH ×2 (11:19→22:11)
[2018-11-26] MEDS: FAMOTIDINE 20 MG TAB PO SCH ×2 (11:19→22:10)
[2018-11-26] MEDS: LINEZOLID 600 MG TAB PO SCH ×2 (11:20→22:11)
[2018-11-26] MEDS: NICOTINE 14 MG/24 HR PATCH TD SCH (11:20)
--- NOTE | 2018-11-26 11:45 | Consultation ---
History of Present Illness Consult date: 11/26/18 Consult reason: chest pain History of present illness: Patient is a 58-year old woman with chronic lung disease, COPD on home oxygen who has a prolonged hospitalization due to respiratory failure, hypoxia, sepsis secondary to pneumonia. A cardiac consultation has been requested for chest pain evaluation. In 2017 patient suffered a myocardial infarction managed at [facility]. A cardiac cath revealed complete occlusion of the RCA that was recommend for medical therapy. She did undergo PCI of the mid LAD using bare metal stent. In addition, patient has a history of paroxysmal atrial fibrillation, previously considered not a candidate for anticoagulation due to melena and severe anemia. Her latest echocardiogram reports an ejection fraction 45-50%. Past History Past Medical History: CAD, COPD, GERD, hypertension, other (Anxiety) Past Surgical History: appendectomy, Other (back surgery, cardiac stent placement ) Social history: other (could not be obtained because patient is intubated and sedated) Family history: other (could not be obtained because patient is intubated and sedated) Medications and Allergies Allergies Allergy/AdvReac Type Severity Reaction Status Date / Time hydromorphone [From Dilaudid] Allergy Unknown Verified 09/28/18 21:25 phenobarbital Allergy Unknown Verified 09/28/18 21:25 Home Medications Medication Instructions Recorded Confirmed Last Taken Type ALPRAZolam [Xanax TAB] 0.25 mg PO Q8H PRN #15 tablet 06/19/18 11/14/18 Unknown Rx Baclofen [Lioresal] 10 mg PO BID #60 tab 06/19/18 11/14/18 Unknown Rx busPIRone [Buspar] 5 mg PO BID #60 tab 06/19/18 11/14/18 Unknown Rx Pantoprazole [Protonix TAB] 40 mg PO QDAY #30 tab 08/19/18 11/14/18 Unknown Rx Amlodipine Besylate [Norvasc] 5 mg PO DAILY 09/16/18 11/14/18 Unknown History HYDROcodone/APAP 5-325 [[place] 1 each PO BID PRN 09/16/18 11/14/18 Unknown History 5-325 mg TAB] Metoprolol Xl [Metoprolol 100 mg PO QDAY 09/16/18 11/14/18 Unknown History SUCCINATE ER TAB] Nitroglycerin [Nitrostat] 0.4 mg SL Q5M PRN 09/16/18 11/14/18 Unknown History Venlafaxine HCl [Venlafaxine] 100 mg PO TID 09/16/18 11/14/18 Unknown History Albuterol Sulfate [Proair 90 mcg IH Q4H PRN #1 pump 09/21/18 11/14/18 Unknown Rx Respiclick] Active Meds: Active Medications Acetaminophen (Tylenol) 650 mg PO Q4H PRN PRN Reason: Pain MILD(1-3)/Fever >100.5/PRAJAPATI Last Admin: 11/26/18 06:31 Dose: 650 mg Documented by: Albuterol (Proventil) 2.5 mg IH Q4HRT PRN PRN Reason: Shortness Of Breath Albuterol/Ipratropium (Duoneb *Not For Prn Use*) 1 ampul IH Q12HRT [facility] Last Admin: 11/26/18 08:00 Dose: Not Given Documented by: Alprazolam (Xanax) 0.25 mg PO Q8H PRN PRN Reason: Anxiety Last Admin: 11/26/18 09:49 Dose: 0.25 mg Documented by: Arformoterol Tartrate (Brovana Nebu) 15 mcg IH Q12HRT [facility] Last Admin: 11/26/18 08:00 Dose: 15 mcg Documented by: Aspirin (Aspirin) 325 mg PO QDAY [facility] Baclofen (Lioresal) 10 mg PO BID [facility] Last Admin: 11/26/18 11:19 Dose: 10 mg Documented by: Budesonide (Pulmicort) 0.5 mg IH Q12HRT [facility] Last Admin: 11/26/18 08:00 Dose: 0.5 mg Documented by: Famotidine (Pepcid) 20 mg PO BID [facility] Last Admin: 11/26/18 11:19 Dose: 20 mg Documented by: Hydralazine HCl (Apresoline) 10 mg IV Q4HR PRN PRN Reason: Hypertension Hydrophilic Ointment (Vaseline Lip Therapy) 1 applic TP Q2HR PRN PRN Reason: Dry Lips Heparin Sodium/Sodium Chloride (Heparin/ 0.45% Nacl-25,000 Unit/500 Ml) 25,000 unit in 500 mls @ 20 mls/hr IV TITRATE DOMINICK; Protocol Insulin Human Lispro (Humalog) 0 unit SUB-Q ACHS [facility]; Protocol Last Admin: 11/26/18 09:19 Dose: Not Given Documented by: Linezolid (Zyvox) 600 mg PO BID [facility] Stop: 11/27/18 23:59 Last Admin: 11/26/18 11:20 Dose: 600 mg Documented by: Lorazepam (Ativan) 1 mg IV Q4HR PRN PRN Reason: Agitation Last Admin: 11/23/18 20:02 Dose: 1 mg Documented by: Methylprednisolone Sodium Succinate (Solu-Medrol) 40 mg IV Q12H [facility] Last Admin: 11/26/18 06:31 Dose: 40 mg Documented by: Metoprolol Tartrate (Lopressor) 12.5 mg PO BID [facility] Multi-Ingred Cream/Lotion/Oil/Oint (Artificial Tears Ophth Oint) 1 applic OU Q4HR PRN PRN Reason: Dry Eye(s) Nicotine (Habitrol) 14 mg TD QDAY [facility] Last Admin: 11/26/18 11:20 Dose: 14 mg Documented by: Nitroglycerin (Nitrostat) 0.4 mg SL .Q5MIN PRN PRN Reason: Chest Pain Ondansetron HCl (Zofran) 4 mg IV Q8H PRN PRN Reason: Nausea And Vomiting Last Admin: 11/26/18 09:49 Dose: 4 mg Documented by: Quetiapine Fumarate (Seroquel) 300 mg PO BID [facility] Last Admin: 11/26/18 11:19 Dose: 300 mg Documented by: Sodium Chloride (Sodium Chloride Flush Syringe 10 Ml) 10 ml IV BID [facility] Last Admin: 11/26/18 09:50 Dose: 10 ml Documented by: Sodium Chloride (Sodium Chloride Flush Syringe 10 Ml) 10 ml IV PRN PRN PRN Reason: LINE FLUSH Last Admin: 11/26/18 06:31 Dose: 10 ml Documented by: Tamsulosin HCl (Flomax) 0.4 mg PO QDAY [facility] Last Admin: 11/25/18 10:37 Dose: 0.4 mg Documented by: Venlafaxine HCl (Effexor) 100 mg PO TID [facility] Last Admin: 11/26/18 09:49 Dose: 100 mg Documented by: Physical Examination Vital Signs Pulse Resp BP Pulse Ox 83 15 122/54 100 11/14/18 19:00 11/14/18 19:00 11/14/18 19:00 11/14/18 19:00 General appearance: no acute distress HEENT: Positive: PERRL Cardiac: Positive: Reg Rate and Rhythm Lungs: Positive: Decreased Breath Sounds Results 11/24/18 05:57 11/24/18 05:57 Assessment and Plan Pneumonia Hypoxic respiratory failure Chest pain Thrombocytopenia History of [place]/Coronary artery disease EF 45-50% by echo 08/2018 [facility] at [facility]: [employer]IMMER of the RCA recommend for medical therapy. She did undergo PCI of the mid LAD using bare metal stent. Hx of COPD on home oxygen Paroxysmal afib/multifocal atrial tachycardia currently in sinus rhythm not on anticoagulation secondary to melena and anemia.
--- NOTE | 2018-11-26 12:07 | Progress Note ---
Assessment and Plan Cultures: Blood culture 11/14/2018 no growth today. Tracheal aspirated 11/14/2018 MRSA VITO=2 Tracheal aspirated 11/17/2018 pending Assessment: 58 y/o female with history of tobacco abuse, COPD with chronic respiratory failure on home oxygen known to our service in May 2018 with septic shock and MDR-Pseudomonas/Ecoli pneumonia, admitted on 11/14/2018 due to worsening SOB: 1) Sepsis: fever resolved x 48h; source is LLL pneumonia. CT chest showed LLL pneumonia with minimal emma effusions, no loculation or abscess. Tracheal asp on 11/14 MRSA VITO=2. Recent history of MDR Pseudomonas pneumonia; CXR with mild left basilar pleuroparietal disease, mild diffuse interstitial lung disease. During May 2018 admission she was treated with levaquin for 10 days as the Pseudomonas was resistant to cefepime, zosyn and sensitive to quinolones. Blood culture 11/14/2018 no growth today. Will continue meropenem and start vanacomycin. 2) Chronic respiratory failure: intubated. 3) COPD exacerbation with pneumonia. Recommendations: continue linezolid 600 mg PO q 12 hours D6 of 7 monitor platelets Will follow. Shukri Malone MD [facility] M: [phone] O: [phone] F: [phone] Subjective Date of service: 11/26/18 Principal diagnosis: Ac and ch hypoxic hypercapnic resp failure; AE-COPD; [place] use disorder Objective - Exam Narrative Exam: General appearance: Alert in NAD Eyes: anicteric sclerae, moist conjunctivae; no lid-lag; PERRLA HENT: Atraumatic; oropharynx +ETT +OGT Lungs: emma rhonchi CV: RRR no murmur Abdomen: Soft, non-tender; no masses or hepatosplenomegaly Extremities: no edema, no cyanosis Skin: multiple emma arms ecchymoses Psych: no agitated Neuro: Moves spontaneously. - Constitutional Vitals: Vital Signs Temp Pulse Resp BP Pulse Ox 97.2 F L 83 22 131/66 97 11/26/18 09:15 11/26/18 09:15 11/26/18 09:15 11/26/18 09:15 11/26/18 09:15 Temperature -Last 24 Hours Temperature 97.2 F Temperature 98.7 F Temperature 97.9 F Temperature 97.8 F Temperature 99.1 F Temperature 97.3 F - Labs CBC & Chem 7: 11/24/18 05:57 11/24/18 05:57 Labs: Abnormal lab results 11/25/18 11/25/18 Range/Units 16:45 22:14 POC Glucose 160 H 154 H (70-105)
[2018-11-26 12:27] LABS: Creatine Kinase MB 4.9 ng/mL (0.0-4.0)
[2018-11-26 12:45] LABS: Chol/HDL Ratio 3.9 %
[2018-11-26 14:00] LABS: Hematocrit 37.2 % (30.3-42.9); Hemoglobin 11.1 gm/dl (10.1-14.3)
[2018-11-26 14:09] LABS: INR 1.91 (0.87-1.13)
[2018-11-26 14:10] LABS: Partial Thromboplastin Time 28.2 Sec. (24.2-36.6)
[2018-11-26] MEDS ORDERED: HEPARIN 10,000 UNITS/10 ML VIAL IV NR (14:30)
[2018-11-26 14:46] LABS: Creatine Kinase MB 3.7 ng/mL (0.0-4.0)
[2018-11-26] MEDS: HEPARIN 5,000 UNIT/1 ML VIAL SUB-Q SCH (22:10)
[2018-11-26] MEDS: METOPROLOL TARTRATE 25 MG TAB PO SCH (22:13)
[2018-11-27 01:22] LABS: Creatine Kinase MB 4.4 ng/mL (0.0-4.0)
[2018-11-27] MEDS ORDERED: methylPREDNISolone Sod Succinate 40 MG/1 ML INJ IV SCH (06:00)
[2018-11-27] MEDS: ACETAMINOPHEN 325 MG TAB PO PRN (06:04)
[2018-11-27 06:08] LABS: Eosinophils % (Auto) 0.1 % (0.0-4.3); Monocytes # (Auto) 0.8 K/mm3 (0.0-0.8); Monocytes % (Auto) 5.7 % (0.0-7.3)
[2018-11-27 06:17] LABS: Basophils % (Auto) 0.1 % (0.0-1.8); Lymphocytes # (Auto) 1.1 K/mm3 (1.2-5.4); Lymphocytes % (Auto) 7.3 % (13.4-35.0); Mean Corpuscular HGB Conc 30 % (30-34); Mean Corpuscular Volume 78 fl (79-97); Platelet Count 163 K/mm3 (140-440); Red Blood Count 5.15 M/mm3 (3.65-5.03)
[2018-11-27 06:18] LABS: Hematocrit 39.9 % (30.3-42.9); Hemoglobin 11.8 gm/dl (10.1-14.3); Red Cell Distribution Width 21.5 % (13.2-15.2)
[2018-11-27] MEDS: INSULIN LISPRO 100 UNIT/ML SUB-Q SCH ×2 (08:00→12:00)
[2018-11-27] MEDS: BUDESONIDE 0.5 MG/2 ML NEBU IH SCH (08:15)
[2018-11-27] MEDS: ARFORMOTEROL 15 MCG/2 ML NEBU IH SCH (08:15)
[2018-11-27] MEDS: IPRATROPIUM/ALBUTEROL SULFATE 3 ML AMPUL.NEB IH SCH (08:15)
[2018-11-27] MEDS: HEPARIN 5,000 UNIT/1 ML VIAL SUB-Q SCH (09:14)
[2018-11-27] MEDS: FAMOTIDINE 20 MG TAB PO SCH (09:15)
[2018-11-27] MEDS: BACLOFEN 10 MG TAB PO SCH (09:15)
[2018-11-27] MEDS: NICOTINE 14 MG/24 HR PATCH TD SCH (09:15)
[2018-11-27] MEDS: TAMSULOSIN 0.4 MG CAP PO SCH (09:16)
[2018-11-27] MEDS: QUEtiapine 100 MG TAB PO SCH (09:16)
[2018-11-27] MEDS: METOPROLOL TARTRATE 25 MG TAB PO SCH (09:17)
[2018-11-27] MEDS ORDERED: ASPIRIN 325 MG TAB PO SCH (10:00)
--- NOTE | 2018-11-27 10:02 | Progress Note ---
Assessment and Plan Pneumonia Hypoxic respiratory failure Chronic stable angina Thrombocytopenia History of NV/Coronary artery disease EF 45-50% by echo 08/2018 [facility]: [employer] of the RCA recommend for medical therapy. She did undergo PCI of the mid LAD using bare metal stent. Hx of COPD on home oxygen Paroxysmal afib/multifocal atrial tachycardia currently in sinus rhythm not on anticoagulation secondary to melena and anemia. Medical therapy for the patient's paroxysmal afib, coronary artery disease and chronic stable angina pectoris. Otherwise, conservative cardiac management. Subjective Date of service: 11/27/18 Principal diagnosis: Ac and ch hypoxic hypercapnic resp failure; AE-COPD; Tobacco use disorder Interval history: Patient denies chest pain. No distress noted. Objective Vital Signs Temp Pulse Pulse Pulse Pulse Pulse Resp 11/27/18 09:17 120 H 11/27/18 09:16 120 H 11/27/18 08:18 11/27/18 08:00 82 11/27/18 07:40 98.0 F 18 11/27/18 04:07 98.5 F 92 H 18 11/27/18 03:00 74 11/26/18 23:56 97.8 F 75 16 11/26/18 20:09 88 86 11/26/18 19:52 97.7 F 86 20 11/26/18 17:16 97.6 F 82 16 11/26/18 16:45 70 70 11/26/18 16:00 76 11/26/18 12:45 97.6 F 104 H 16 11/26/18 12:00 101 H Resp Resp BP Pulse Ox 11/27/18 09:17 119/75 11/27/18 09:16 119/75 11/27/18 08:18 96 11/27/18 08:00 20 11/27/18 07:40 126/73 11/27/18 04:07 138/90 88 11/27/18 03:00 11/26/18 23:56 103/52 93 11/26/18 20:09 18 20 96 11/26/18 19:52 98/47 95 11/26/18 17:16 117/68 99 11/26/18 16:45 100 11/26/18 16:00 11/26/18 12:45 119/68 94 11/26/18 12:00 - Physical Examination General: No Apparent Distress HEENT: Positive: PERRL Neck: Positive: trachea midline Cardiac: Positive: Reg Rate and Rhythm Lungs: Positive: Decreased Breath Sounds - Labs and Meds Cardiac Enzymes 11/26/18 11/26/18 11/26/18 Range/Units 10:41 14:03 22:57 CK-MB (CK-2) 4.9 H 3.7 4.4 H (0.0-4.0) ng/mL Coagulation 11/26/18 Range/Units 13:42 PT 21.5 H (12.2-14.9) Sec. INR 1.91 H (0.87-1.13) APTT 28.2 (24.2-36.6) Sec. Lipids 11/26/18 Range/Units 10:41 Triglycerides 145 (2-149) mg/dL Cholesterol 281 H (50-199) mg/dL HDL Cholesterol 72 H (40-59) mg/dL Cholesterol/HDL Ratio 3.90 % CBC 11/26/18 11/27/18 Range/Units 13:42 05:04 WBC 14.6 H (4.5-11.0) K/mm3 RBC 5.15 H (3.65-5.03) M/mm3 Hgb 11.1 11.8 (10.1-14.3) gm/dl Hct 37.2 39.9 (30.3-42.9) % Plt Count 165 163 (140-440) K/mm3 Lymph # 1.1 L (1.2-5.4) K/mm3 [place] # 0.8 (0.0-0.8) K/mm3 Eos # 0.0 (0.0-0.4) K/mm3 Baso # 0.0 (0.0-0.1) K/mm3 - Allied health notes Allied health notes reviewed: nursing
--- NOTE | 2018-11-27 10:46 | Progress Note ---
Assessment and Plan -Acute and chronic hypoxic-hypercapnic respiratory failure -AE-COPD -HAP -Tobacco use disorder/Nicotine dependence( on going) -Hypernatremia -History of HTN, hypotensive at presentation -Chronic narcotic dependence -Chronic back pain -Anxiety disorder -Oxygen restrictive strategies- PaO2 of 60 with O2 sats 88-90% is acceptable -Bronchodilators -Maintenance of sleep-wake cycle, avoid delirium -ABG, CBC and BMP prn -Accuchecks with glycemic control -VTE prophylaxis(enoxaparin) -Stress ulcer prophylaxis( Famotidine) -Steroids -Bronchodilators -Avoid delirium -Discharge planning with home health and close pulmonary outpatient follow up Discussed with hospitalist service CONDITION: FAIR PROGNOSIS: GUARDED CODE STATUS: FULL CODE Subjective Date of service: 11/27/18 Principal diagnosis: Ac and ch hypoxic hypercapnic resp failure; AE-COPD; Tobacco use disorder Interval history: Patient is seen today for: Ac and ch hypoxic hypercapnic resp failure; AE-COPD; Tobacco use disorder/Nicotine dependence; Hypernatremia; HTN (hypotensive at presentation ); Chronic narcotic dependence ; Chronic back pain; Anxiety dis order Seen and examined at bedside; 24-hour events reviewed; nursing and respiratory care staff consulted; no adverse overnight events reported to me; laying in bed ; No emesis or overt aspiration; no fevers, baseline shortness of breath, no cough. Wants to go home Objective Vital Signs - 12hr 11/26/18 11/27/18 11/27/18 23:56 03:00 04:07 Temperature 97.8 F 98.5 F Pulse Rate 75 74 92 H Pulse Rate [ Bilateral Bases ] Respiratory 16 18 Rate Respiratory Rate [Bilateral Bases] Blood Pressure 103/52 138/90 O2 Sat by Pulse 93 88 Oximetry 11/27/18 11/27/18 11/27/18 07:40 08:00 08:18 Temperature 98.0 F Pulse Rate Pulse Rate [ 82 Bilateral Bases ] Respiratory 18 Rate Respiratory 20 Rate [Bilateral Bases] Blood Pressure 126/73 O2 Sat by Pulse 96 Oximetry 11/27/18 11/27/18 09:16 09:17 Temperature Pulse Rate 120 H 120 H Pulse Rate [ Bilateral Bases ] Respiratory Rate Respiratory Rate [Bilateral Bases] Blood Pressure 119/75 119/75 O2 Sat by Pulse Oximetry Constitutional: no acute distress, alert Eyes: non-icteric ENT: oropharynx moist Neck: supple, no lymphadenopathy, no JVD Effort: mildly labored Ascultation: Bilateral: diminished breath sounds, rhonchi Percussion: Bilateral: not dull Cardiovascular: regular rate and rhythm Gastrointestinal: normoactive bowel sounds, soft, non-tender, non-distended Integumentary: normal Extremities: no cyanosis, no edema, pink and warm, pulses normal Neurologic: normal mental status, non-focal exam (grossly), pupils equal and round, CN II-XII normal, motor strength normal and Psychiatric: mood appropriate, affect normal CBC and BMP: 11/27/18 05:04 11/24/18 05:57 ABG, PT/INR, D-dimer: ABG POC ABG pH 7.488 (7.35-7.45) H 11/22/18 14:54 ABG pH 7.247 pH Units (7.350-7.450) L 11/16/18 05:10 POC ABG pCO2 48.1 (35-45) H 11/22/18 14:54 ABG pCO2 64.0 mm Hg 11/16/18 05:10 POC ABG pO2 69 (80-105) L 11/22/18 14:54 ABG pO2 65.7 mm Hg (80.0-90.0) L 11/16/18 05:10 POC ABG HCO3 36.5 (22-26 mml/L) 11/22/18 14:54 POC ABG Total CO2 38 (23-27mmol/L) 11/22/18 14:54 POC ABG O2 Sat 95 11/22/18 14:54 ABG O2 Saturation 89.9 % (95.0-99.0) L 11/16/18 05:10 PT/INR, D-dimer PT 21.5 Sec. (12.2-14.9) H 11/26/18 13:42 INR 1.91 (0.87-1.13) H 11/26/18 13:42 Abnormal lab findings: Abnormal Labs 11/14/18 11/14/18 11/14/18 18:59 19:39 19:39 WBC RBC 5.30 H MCV MCH 23 L MCHC 29 L RDW 20.5 H Plt Count 132 L Lymph % (Auto) 7.2 L Lymph # 0.6 L Seg Neutrophils % 87.1 H Seg Neuts % (Manual) Lymphocytes % (Manual) Seg Neutrophils # Seg Neutrophils # Man Lymphocytes # (Manual) PT INR POC ABG pH ABG pH POC ABG pCO2 POC ABG pO2 ABG pO2 ABG HCO3 ABG O2 Saturation ABG Base Excess ABG Hemoglobin ABG Carboxyhemoglobin Oxyhemoglobin Sodium 147 H Potassium Chloride Carbon Dioxide 35 H BUN Creatinine 0.4 L Glucose 121 H POC Glucose 129 H Calcium ALT 6 L CK-MB (CK-2) CK-MB (CK-2) Rel Index Troponin T Total Protein 6.2 L Albumin 3.4 L Cholesterol LDL Cholesterol Direct HDL Cholesterol 11/14/18 11/15/18 11/15/18 20:45 04:20 04:20 WBC RBC 5.36 H MCV 78 L MCH 22 L MCHC 28 L RDW 20.5 H Plt Count 124 L Lymph % (Auto) Lymph # Seg Neutrophils % Seg Neuts % (Manual) 92.0 H Lymphocytes % (Manual) 6.0 L Seg Neutrophils # Seg Neutrophils # Man Lymphocytes # (Manual) 0.4 L PT INR POC ABG pH ABG pH 7.346 L POC ABG pCO2 POC ABG pO2 ABG pO2 ABG HCO3 32.4 H ABG O2 Saturation ABG Base Excess 5.3 H ABG Hemoglobin 11.0 L ABG Carboxyhemoglobin 6.4 H Oxyhemoglobin 90.0 L Sodium 146 H Potassium Chloride 107.6 H Carbon Dioxide BUN Creatinine 0.4 L Glucose 132 H POC Glucose Calcium 8.1 L ALT CK-MB (CK-2) CK-MB (CK-2) Rel Index Troponin T Total Protein Albumin Cholesterol LDL Cholesterol Direct HDL Cholesterol 11/15/18 11/15/18 11/15/18 06:18 12:36 18:06 WBC RBC MCV MCH MCHC RDW Plt Count Lymph % (Auto) Lymph # Seg Neutrophils % Seg Neuts % (Manual) Lymphocytes % (Manual) Seg Neutrophils # Seg Neutrophils # Man Lymphocytes # (Manual) PT INR POC ABG pH 7.291 L ABG pH POC ABG pCO2 65.4 H POC ABG pO2 65 L ABG pO2 ABG HCO3 ABG O2 Saturation ABG Base Excess ABG Hemoglobin ABG Carboxyhemoglobin Oxyhemoglobin Sodium Potassium Chloride Carbon Dioxide BUN Creatinine Glucose POC Glucose 149 H 171 H Calcium ALT CK-MB (CK-2) CK-MB (CK-2) Rel Index Troponin T Total Protein Albumin Cholesterol LDL Cholesterol Direct HDL Cholesterol 11/15/18 11/16/18 11/16/18 23:42 00:11 00:11 WBC 11.2 H RBC MCV 77 L MCH 22 L MCHC 28 L RDW 21.3 H Plt Count 136 L Lymph % (Auto) Lymph # Seg Neutrophils % Seg Neuts % (Manual) 89.0 H Lymphocytes % (Manual) 6.0 L Seg Neutrophils # Seg Neutrophils # Man 10.0 H Lymphocytes # (Manual) 0.7 L PT INR POC ABG pH ABG pH POC ABG pCO2 POC ABG pO2 ABG pO2 ABG HCO3 ABG O2 Saturation ABG Base Excess ABG Hemoglobin ABG Carboxyhemoglobin Oxyhemoglobin Sodium Potassium 5.4 H D Chloride 109.5 H Carbon Dioxide BUN 18 H Creatinine 0.5 L Glucose 118 H POC Glucose 134 H Calcium ALT CK-MB (CK-2) CK-MB (CK-2) Rel Index Troponin T Total Protein Albumin Cholesterol LDL Cholesterol Direct HDL Cholesterol 11/16/18 11/16/18 11/16/18 05:10 06:55 12:22 WBC RBC MCV MCH MCHC RDW Plt Count Lymph % (Auto) Lymph # Seg Neutrophils % Seg Neuts % (Manual) Lymphocytes % (Manual) Seg Neutrophils # Seg Neutrophils # Man Lymphocytes # (Manual) PT INR POC ABG pH ABG pH 7.247 L POC ABG pCO2 POC ABG pO2 ABG pO2 65.7 L ABG HCO3 27.3 H ABG O2 Saturation 89.9 L ABG Base Excess ABG Hemoglobin 10.5 L ABG Carboxyhemoglobin Oxyhemoglobin 87.9 L Sodium Potassium Chloride Carbon Dioxide BUN Creatinine Glucose POC Glucose 116 H 106 H Calcium ALT CK-MB (CK-2) CK-MB (CK-2) Rel Index Troponin T Total Protein Albumin Cholesterol LDL Cholesterol Direct HDL Cholesterol 11/16/18 11/17/18 11/17/18 18:04 04:56 09:26 WBC 15.1 H RBC MCV 77 L MCH 22 L MCHC 28 L RDW 20.4 H Plt Count 134 L Lymph % (Auto) Lymph # Seg Neutrophils % Seg Neuts % (Manual) Lymphocytes % (Manual) Seg Neutrophils # Seg Neutrophils # Man Lymphocytes # (Manual) PT INR POC ABG pH 7.335 L ABG pH POC ABG pCO2 58.2 H POC ABG pO2 74 L ABG pO2 ABG HCO3 ABG O2 Saturation ABG Base Excess ABG Hemoglobin ABG Carboxyhemoglobin Oxyhemoglobin Sodium Potassium Chloride Carbon Dioxide BUN Creatinine Glucose POC Glucose 117 H Calcium ALT CK-MB (CK-2) CK-MB (CK-2) Rel Index Troponin T Total Protein Albumin Cholesterol LDL Cholesterol Direct HDL Cholesterol 11/17/18 11/17/18 11/17/18 09:26 18:03 23:49 WBC RBC MCV MCH MCHC RDW Plt Count Lymph % (Auto) Lymph # Seg Neutrophils % Seg Neuts % (Manual) Lymphocytes % (Manual) Seg Neutrophils # Seg Neutrophils # Man Lymphocytes # (Manual) PT INR POC ABG pH ABG pH POC ABG pCO2 POC ABG pO2 ABG pO2 ABG HCO3 ABG O2 Saturation ABG Base Excess ABG Hemoglobin ABG Carboxyhemoglobin Oxyhemoglobin Sodium 149 H Potassium Chloride 109.0 H Carbon Dioxide BUN 22 H Creatinine 0.4 L Glucose POC Glucose 128 H 129 H Calcium ALT CK-MB (CK-2) CK-MB (CK-2) Rel Index Troponin T Total Protein Albumin Cholesterol LDL Cholesterol Direct HDL Cholesterol 11/18/18 11/18/18 11/18/18 04:00 06:15 09:35 WBC RBC MCV 76 L MCH 22 L MCHC 29 L RDW 20.3 H Plt Count 111 L Lymph % (Auto) Lymph # Seg Neutrophils % Seg Neuts % (Manual) Lymphocytes % (Manual) Seg Neutrophils # Seg Neutrophils # Man Lymphocytes # (Manual) PT INR POC ABG pH ABG pH POC ABG pCO2 54.2 H POC ABG pO2 62 L ABG pO2 ABG HCO3 ABG O2 Saturation ABG Base Excess ABG Hemoglobin ABG Carboxyhemoglobin Oxyhemoglobin Sodium Potassium Chloride Carbon Dioxide BUN Creatinine Glucose POC Glucose 144 H Calcium ALT CK-MB (CK-2) CK-MB (CK-2) Rel Index Troponin T Total Protein Albumin Cholesterol LDL Cholesterol Direct HDL Cholesterol 11/18/18 11/18/18 11/18/18 09:35 12:23 18:21 WBC RBC MCV MCH MCHC RDW Plt Count Lymph % (Auto) Lymph # Seg Neutrophils % Seg Neuts % (Manual) Lymphocytes % (Manual) Seg Neutrophils # Seg Neutrophils # Man Lymphocytes # (Manual) PT INR POC ABG pH ABG pH POC ABG pCO2 POC ABG pO2 ABG pO2 ABG HCO3 ABG O2 Saturation ABG Base Excess ABG Hemoglobin ABG Carboxyhemoglobin Oxyhemoglobin Sodium 149 H Potassium Chloride 109.5 H Carbon Dioxide 31 H BUN 20 H Creatinine 0.4 L Glucose 137 H POC Glucose 140 H 160 H Calcium ALT CK-MB (CK-2) CK-MB (CK-2) Rel Index Troponin T Total Protein Albumin Cholesterol LDL Cholesterol Direct HDL Cholesterol 11/18/18 11/19/18 11/19/18 23:55 04:12 05:41 WBC RBC MCV MCH MCHC RDW Plt Count Lymph % (Auto) Lymph # Seg Neutrophils % Seg Neuts % (Manual) Lymphocytes % (Manual) Seg Neutrophils # Seg Neutrophils # Man Lymphocytes # (Manual) PT INR POC ABG pH 7.345 L ABG pH POC ABG pCO2 64.9 H POC ABG pO2 69 L ABG pO2 ABG HCO3 ABG O2 Saturation ABG Base Excess ABG Hemoglobin ABG Carboxyhemoglobin Oxyhemoglobin Sodium Potassium Chloride Carbon Dioxide BUN Creatinine Glucose POC Glucose 151 H 145 H Calcium ALT CK-MB (CK-2) CK-MB (CK-2) Rel Index Troponin T Total Protein Albumin Cholesterol LDL Cholesterol Direct HDL Cholesterol 11/19/18 11/19/18 11/19/18 09:25 11:25 17:55 WBC RBC MCV MCH MCHC RDW Plt Count Lymph % (Auto) Lymph # Seg Neutrophils % Seg Neuts % (Manual) Lymphocytes % (Manual) Seg Neutrophils # Seg Neutrophils # Man Lymphocytes # (Manual) PT INR POC ABG pH 7.346 L ABG pH POC ABG pCO2 65.3 H POC ABG pO2 71 L ABG pO2 ABG HCO3 ABG O2 Saturation ABG Base Excess ABG Hemoglobin ABG Carboxyhemoglobin Oxyhemoglobin Sodium 150 H Potassium Chloride 109.4 H Carbon Dioxide 32 H BUN 21 H Creatinine 0.3 L Glucose 149 H POC Glucose 160 H Calcium ALT CK-MB (CK-2) CK-MB (CK-2) Rel Index Troponin T Total Protein Albumin Cholesterol LDL Cholesterol Direct HDL Cholesterol 11/19/18 11/19/18 11/20/18 17:58 23:15 04:06 WBC RBC MCV MCH MCHC RDW Plt Count Lymph % (Auto) Lymph # Seg Neutrophils % Seg Neuts % (Manual) Lymphocytes % (Manual) Seg Neutrophils # Seg Neutrophils # Man Lymphocytes # (Manual) PT INR POC ABG pH ABG pH POC ABG pCO2 55.6 H POC ABG pO2 66 L ABG pO2 ABG HCO3 ABG O2 Saturation ABG Base Excess ABG Hemoglobin ABG Carboxyhemoglobin Oxyhemoglobin Sodium Potassium Chloride Carbon Dioxide BUN Creatinine Glucose POC Glucose 171 H 156 H Calcium ALT CK-MB (CK-2) CK-MB (CK-2) Rel Index Troponin T Total Protein Albumin Cholesterol LDL Cholesterol Direct HDL Cholesterol 11/20/18 11/20/18 11/20/18 04:39 04:39 05:14 WBC 12.0 H RBC MCV 76 L MCH 22 L MCHC 29 L RDW 19.7 H Plt Count 80 L Lymph % (Auto) Lymph # Seg Neutrophils % Seg Neuts % (Manual) Lymphocytes % (Manual) Seg Neutrophils # Seg Neutrophils # Man Lymphocytes # (Manual) PT INR POC ABG pH ABG pH POC ABG pCO2 POC ABG pO2 ABG pO2 ABG HCO3 ABG O2 Saturation ABG Base Excess ABG Hemoglobin ABG Carboxyhemoglobin Oxyhemoglobin Sodium 151 H Potassium Chloride 109.0 H Carbon Dioxide 33 H BUN 18 H Creatinine 0.3 L Glucose 146 H POC Glucose 137 H Calcium ALT CK-MB (CK-2) CK-MB (CK-2) Rel Index Troponin T Total Protein Albumin Cholesterol LDL Cholesterol Direct HDL Cholesterol 11/20/18 11/20/18 11/20/18 12:28 17:24 23:37 WBC RBC MCV MCH MCHC RDW Plt Count Lymph % (Auto) Lymph # Seg Neutrophils % Seg Neuts % (Manual) Lymphocytes % (Manual) Seg Neutrophils # Seg Neutrophils # Man Lymphocytes # (Manual) PT INR POC ABG pH ABG pH POC ABG pCO2 POC ABG pO2 ABG pO2 ABG HCO3 ABG O2 Saturation ABG Base Excess ABG Hemoglobin ABG Carboxyhemoglobin Oxyhemoglobin Sodium Potassium Chloride Carbon Dioxide BUN Creatinine Glucose POC Glucose 162 H 161 H 147 H Calcium ALT CK-MB (CK-2) CK-MB (CK-2) Rel Index Troponin T Total Protein Albumin Cholesterol LDL Cholesterol Direct HDL Cholesterol 11/21/18 11/21/18 11/21/18 04:38 04:38 05:27 WBC RBC MCV 75 L MCH 22 L MCHC RDW 20.2 H Plt Count 82 L Lymph % (Auto) 4.8 L Lymph # 0.4 L Seg Neutrophils % 87.5 H Seg Neuts % (Manual) Lymphocytes % (Manual) Seg Neutrophils # Seg Neutrophils # Man Lymphocytes # (Manual) PT INR POC ABG pH ABG pH POC ABG pCO2 POC ABG pO2 ABG pO2 ABG HCO3 ABG O2 Saturation ABG Base Excess ABG Hemoglobin ABG Carboxyhemoglobin Oxyhemoglobin Sodium Potassium Chloride Carbon Dioxide 34 H BUN 18 H Creatinine 0.2 L Glucose 163 H POC Glucose 171 H Calcium ALT CK-MB (CK-2) CK-MB (CK-2) Rel Index Troponin T Total Protein Albumin Cholesterol LDL Cholesterol Direct HDL Cholesterol 11/21/18 11/21/18 11/21/18 12:13 15:12 18:04 WBC RBC MCV MCH MCHC RDW Plt Count Lymph % (Auto) Lymph # Seg Neutrophils % Seg Neuts % (Manual) Lymphocytes % (Manual) Seg Neutrophils # Seg Neutrophils # Man Lymphocytes # (Manual) PT INR POC ABG pH ABG pH POC ABG pCO2 51.4 H POC ABG pO2 71 L ABG pO2 ABG HCO3 ABG O2 Saturation ABG Base Excess ABG Hemoglobin ABG Carboxyhemoglobin Oxyhemoglobin Sodium Potassium Chloride Carbon Dioxide BUN Creatinine Glucose POC Glucose 184 H 154 H Calcium ALT CK-MB (CK-2) CK-MB (CK-2) Rel Index Troponin T Total Protein Albumin Cholesterol LDL Cholesterol Direct HDL Cholesterol 11/21/18 11/22/18 11/22/18 23:46 04:18 04:18 WBC RBC MCV 75 L MCH 23 L MCHC RDW 19.7 H Plt Count 80 L Lymph % (Auto) 3.8 L Lymph # 0.3 L Seg Neutrophils % 88.6 H Seg Neuts % (Manual) Lymphocytes % (Manual) Seg Neutrophils # Seg Neutrophils # Man Lymphocytes # (Manual) PT INR POC ABG pH ABG pH POC ABG pCO2 POC ABG pO2 ABG pO2 ABG HCO3 ABG O2 Saturation ABG Base Excess ABG Hemoglobin ABG Carboxyhemoglobin Oxyhemoglobin Sodium Potassium Chloride Carbon Dioxide 34 H BUN 20 H Creatinine 0.2 L Glucose 143 H POC Glucose 170 H Calcium ALT CK-MB (CK-2) CK-MB (CK-2) Rel Index Troponin T Total Protein Albumin Cholesterol LDL Cholesterol Direct HDL Cholesterol 11/22/18 11/22/18 11/22/18 05:27 12:58 14:54 WBC RBC MCV MCH MCHC RDW Plt Count Lymph % (Auto) Lymph # Seg Neutrophils % Seg Neuts % (Manual) Lymphocytes % (Manual) Seg Neutrophils # Seg Neutrophils # Man Lymphocytes # (Manual) PT INR POC ABG pH 7.488 H ABG pH POC ABG pCO2 48.1 H POC ABG pO2 69 L ABG pO2 ABG HCO3 ABG O2 Saturation ABG Base Excess ABG Hemoglobin ABG Carboxyhemoglobin Oxyhemoglobin Sodium Potassium Chloride Carbon Dioxide BUN Creatinine Glucose POC Glucose 140 H 108 H Calcium ALT CK-MB (CK-2) CK-MB (CK-2) Rel Index Troponin T Total Protein Albumin Cholesterol LDL Cholesterol Direct HDL Cholesterol 11/22/18 11/23/18 11/23/18 18:34 00:03 05:32 WBC RBC MCV MCH MCHC RDW Plt Count Lymph % (Auto) Lymph # Seg Neutrophils % Seg Neuts % (Manual) Lymphocytes % (Manual) Seg Neutrophils # Seg Neutrophils # Man Lymphocytes # (Manual) PT INR POC ABG pH ABG pH POC ABG pCO2 POC ABG pO2 ABG pO2 ABG HCO3 ABG O2 Saturation ABG Base Excess ABG Hemoglobin ABG Carboxyhemoglobin Oxyhemoglobin Sodium Potassium Chloride Carbon Dioxide BUN Creatinine Glucose POC Glucose 152 H 141 H 108 H Calcium ALT CK-MB (CK-2) CK-MB (CK-2) Rel Index Troponin T Total Protein Albumin Cholesterol LDL Cholesterol Direct HDL Cholesterol 11/23/18 11/23/18 11/23/18 11:35 16:07 21:54 WBC RBC MCV MCH MCHC RDW Plt Count Lymph % (Auto) Lymph # Seg Neutrophils % Seg Neuts % (Manual) Lymphocytes % (Manual) Seg Neutrophils # Seg Neutrophils # Man Lymphocytes # (Manual) PT INR POC ABG pH ABG pH POC ABG pCO2 POC ABG pO2 ABG pO2 ABG HCO3 ABG O2 Saturation ABG Base Excess ABG Hemoglobin ABG Carboxyhemoglobin Oxyhemoglobin Sodium Potassium Chloride Carbon Dioxide BUN Creatinine Glucose POC Glucose 123 H 117 H 163 H Calcium ALT CK-MB (CK-2) CK-MB (CK-2) Rel Index Troponin T Total Protein Albumin Cholesterol LDL Cholesterol Direct HDL Cholesterol 11/24/18 11/24/18 11/24/18 05:57 05:57 11:32 WBC 14.7 H RBC MCV 74 L MCH 23 L MCHC RDW 20.8 H Plt Count 118 L Lymph % (Auto) 2.3 L Lymph # 0.3 L Seg Neutrophils % Seg Neuts % (Manual) 96.0 H Lymphocytes % (Manual) 0 L Seg Neutrophils # 13.4 H Seg Neutrophils # Man 14.1 H Lymphocytes # (Manual) 0.0 L PT INR POC ABG pH ABG pH POC ABG pCO2 POC ABG pO2 ABG pO2 ABG HCO3 ABG O2 Saturation ABG Base Excess ABG Hemoglobin ABG Carboxyhemoglobin Oxyhemoglobin Sodium Potassium Chloride Carbon Dioxide 32 H BUN Creatinine 0.3 L Glucose 111 H POC Glucose 113 H Calcium ALT CK-MB (CK-2) CK-MB (CK-2) Rel Index Troponin T Total Protein Albumin Cholesterol LDL Cholesterol Direct HDL Cholesterol 11/24/18 11/24/18 11/25/18 16:35 21:33 11:12 WBC RBC MCV MCH MCHC RDW Plt Count Lymph % (Auto) Lymph # Seg Neutrophils % Seg Neuts % (Manual) Lymphocytes % (Manual) Seg Neutrophils # Seg Neutrophils # Man Lymphocytes # (Manual) PT INR POC ABG pH ABG pH POC ABG pCO2 POC ABG pO2 ABG pO2 ABG HCO3 ABG O2 Saturation ABG Base Excess ABG Hemoglobin ABG Carboxyhemoglobin Oxyhemoglobin Sodium Potassium Chloride Carbon Dioxide BUN Creatinine Glucose POC Glucose 121 H 120 H 194 H Calcium ALT CK-MB (CK-2) CK-MB (CK-2) Rel Index Troponin T Total Protein Albumin Cholesterol LDL Cholesterol Direct HDL Cholesterol 11/25/18 11/25/18 11/26/18 16:45 22:14 10:41 WBC RBC MCV MCH MCHC RDW Plt Count Lymph % (Auto) Lymph # Seg Neutrophils % Seg Neuts % (Manual) Lymphocytes % (Manual) Seg Neutrophils # Seg Neutrophils # Man Lymphocytes # (Manual) PT INR POC ABG pH ABG pH POC ABG pCO2 POC ABG pO2 ABG pO2 ABG HCO3 ABG O2 Saturation ABG Base Excess ABG Hemoglobin ABG Carboxyhemoglobin Oxyhemoglobin Sodium Potassium Chloride Carbon Dioxide BUN Creatinine Glucose POC Glucose 160 H 154 H Calcium ALT CK-MB (CK-2) 4.9 H CK-MB (CK-2) Rel Index 4.1 H Troponin T 0.062 H Total Protein Albumin Cholesterol 281 H LDL Cholesterol Direct 194 H HDL Cholesterol 72 H 11/26/18 11/26/18 11/26/18 11:35 13:42 14:03 WBC RBC MCV MCH MCHC RDW Plt Count Lymph % (Auto) Lymph # Seg Neutrophils % Seg Neuts % (Manual) Lymphocytes % (Manual) Seg Neutrophils # Seg Neutrophils # Man Lymphocytes # (Manual) PT 21.5 H INR 1.91 H POC ABG pH ABG pH POC ABG pCO2 POC ABG pO2 ABG pO2 ABG HCO3 ABG O2 Saturation ABG Base Excess ABG Hemoglobin ABG Carboxyhemoglobin Oxyhemoglobin Sodium Potassium Chloride Carbon Dioxide BUN Creatinine Glucose POC Glucose 138 H Calcium ALT CK-MB (CK-2) CK-MB (CK-2) Rel Index 4.6 H Troponin T 0.045 H D Total Protein Albumin Cholesterol LDL Cholesterol Direct HDL Cholesterol 11/26/18 11/26/18 11/27/18 20:46 22:57 05:04 WBC 14.6 H RBC 5.15 H MCV 78 L MCH 23 L MCHC RDW 21.5 H Plt Count Lymph % (Auto) 7.3 L Lymph # 1.1 L Seg Neutrophils % 86.3 H Seg Neuts % (Manual) Lymphocytes % (Manual) Seg Neutrophils # 12.4 H Seg Neutrophils # Man Lymphocytes # (Manual) PT INR POC ABG pH ABG pH POC ABG pCO2 POC ABG pO2 ABG pO2 ABG HCO3 ABG O2 Saturation ABG Base Excess ABG Hemoglobin ABG Carboxyhemoglobin Oxyhemoglobin Sodium Potassium Chloride Carbon Dioxide BUN Creatinine Glucose POC Glucose 132 H Calcium ALT CK-MB (CK-2) 4.4 H CK-MB (CK-2) Rel Index 5.5 H Troponin T 0.035 H D Total Protein Albumin Cholesterol LDL Cholesterol Direct HDL Cholesterol 11/27/18 07:46 WBC RBC MCV MCH MCHC RDW Plt Count Lymph % (Auto) Lymph # Seg Neutrophils % Seg Neuts % (Manual) Lymphocytes % (Manual) Seg Neutrophils # Seg Neutrophils # Man Lymphocytes # (Manual) PT INR POC ABG pH ABG pH POC ABG pCO2 POC ABG pO2 ABG pO2 ABG HCO3 ABG O2 Saturation ABG Base Excess ABG Hemoglobin ABG Carboxyhemoglobin Oxyhemoglobin Sodium Potassium Chloride Carbon Dioxide BUN Creatinine Glucose POC Glucose 120 H Calcium ALT CK-MB (CK-2) CK-MB (CK-2) Rel Index Troponin T Total Protein Albumin Cholesterol LDL Cholesterol Direct HDL Cholesterol Allied health notes reviewed: nursing
[2018-11-27] MEDS: LINEZOLID 600 MG TAB PO SCH (11:00)
[2018-11-27 11:41] VITALS: BP 103/69
[2018-11-27] MEDS: VENLAFAXINE 25 MG TAB PO SCH ×2 (12:42→13:03)
--- NOTE | 2018-11-27 15:37 | Discharge Summary ---
Providers - Providers Date of Admission: 11/14/18 20:57 Date of discharge: 11/27/18 Attending physician: CHACHA BARREINTOS 11/14/18 19:15 Consult to Dietitian/Nutrition [CONS] Routine Physician Instructions: Reason For Exam: Reason for Consult: Evaluate nutritional intake 11/15/18 12:23 Consult to Physician [CONS] Routine Comment: Consulting Provider: PARESH GAINES Physician Instructions: Reason For Exam: Acute rEspiratory failure 11/16/18 12:32 Consult to Dietitian/Nutrition [CONS] Routine Physician Instructions: Reason For Exam: Reason for Consult: Write/Manage Tube Feeding 11/18/18 08:23 Consult to Wound/ET Nurse [CONS] Routine Reason For Exam: Lt elbow wound 11/18/18 10:39 Consult to Physician [CONS] Urgent Comment: Consulting Provider: SATNAM BERG Physician Instructions: Reason For Exam: low grade temperature, elevated WBC count 11/20/18 01:46 Consult to Dietitian/Nutrition [CONS] Routine Physician Instructions: Assess nutrtn needs, initiate, modify, manage TF Reason For Exam: Reason for Consult: Write/Manage Tube Feeding Reason for Consult: Write/Manage Tube Feeding 11/23/18 08:09 Physical Therapy Evaluation and Treat [CONS] Routine Comment: Reason For Exam: ICU pt /s/p extubation 11/26/18 10:38 Consult to Physician [CONS] Urgent Comment: Consulting Provider: JENNA MATTHEWS Physician Instructions: Reason For Exam: Chest pain/ST changes Primary care physician: FLORESITA MOSELEY Hospitalization Reason for admission: Worsening shortness of breath/Acute on chronic combined resp failure Condition: Fair Pertinent studies: CT chest CXR [facility] course: 58 y/o female patient with hx of COPD who presented to the ED via EMS on account of worsening sob. Apparently, the patient called 911 for shortness of breath. Per, EMS, he was noted to be saturating in the 60's in the field. She was given albuterol, steroids, and magnesium in the field. On arrival to the ED, the patient was altered, She was emergently intubated and placed on MV. Patient also has sepsis secondary to pneumonia, evaluated by pulmonary critical, tracheal aspirate MRSA ,on linezolid per ID, Extubated on 11/22/18 at 5 pm transfer to floor. Patient is receied physical therapy occupational therapy.Patient developed chest pain and EKG showed old ST elevation findings in EKG,cardiology evaluated and cleared for discharge. Today patient is comfortable,no new complaints,Vital signs stable Physical exam is unremarkable. Discharge Diagnosis: --Acute on chronic combined respiratory failure requiring intubation: s/p extubation ,on ventimask 35% 02 sats > 94% antibiotics, Nebulizes, steroids pulmonology evaluated --Anxiety: low dose Xanax,supportive care --End-stage COPD; acute exacerbation with chronic hypoxia treat with iv steriods continue taper, abx, nebs supportive care -- Sepsis/pneumonia, tracheal aspirate MRSA;cont linezolid, per ID Contact isolation --Chest Pain :ST changes on EKG Resolved,Cardiac meds,crdiology evaluated --Hypernatremia, resolved --Malignant HTN (hypertension).; Well controlled Continue current antihypertensives and when necessary hydralazine --Sinus tachycardia; probably secondary to agitation,resolved --Nicotine dependence; nicotine patch when necessary. --Thrombocytopenia: stable no active bleeding.Hematology evaluated --DVt Px; SCDs No pharmacologic anticoagulation in view of thrombocytopenia Stable at discharge Disposition: [id number] HOME UNDER HOME [facility] Time spent for discharge: 32min Core Measure Documentation - Palliative Care Palliative Care/ Comfort Measures: Not Applicable - Core Measures Any of the following diagnoses?: none Exam - Constitutional Vitals: Temp Pulse Resp BP Pulse Ox 98.0 F 71 20 103/69 95 11/27/18 07:40 11/27/18 12:00 11/27/18 08:00 11/27/18 11:38 11/27/18 12:00 General appearance: Present: no acute distress, well-nourished, obese - EENT Eyes: Present: PERRL, EOM intact - Neck Neck: Present: supple, normal ROM - Respiratory Respiratory effort: normal Respiratory: bilateral: diminished, negative: rales, rhonchi, wheezing - Cardiovascular Rhythm: regular Heart Sounds: Present: S1 & S2 - Extremities Extremities: no ischemia, No edema - Abdominal General gastrointestinal: Present: soft, non-tender, non-distended, normal bowel sounds - Integumentary Integumentary: Present: clear, warm - Musculoskeletal Musculoskeletal: strength equal bilaterally, generalized weakness - Psychiatric Psychiatric: appropriate mood/affect, cooperative - Neurologic Neurologic: moves all extremities Plan Activity: advance as tolerated, fall precautions Diet: advance as tolerated, other (mechanical soft diet) Special Instructions: physical therapy Additional Instructions: If you have chest pain or shortness of breath contact M.D. or go to emergency room [facility] [Referring] - 3-5 Days JENNA MATTHEWS MD [Staff Physician] - 7 Days ALLISON GRAY MD [Staff Physician] - 7 Days SATNAM BERG MD [Staff Physician] - 7 Days Prescriptions: Nicotine [Habitrol] 14 mg TD QDAY #30 patch Metoprolol [Lopressor TAB] 12.5 mg PO BID #60 tablet QUEtiapine [SEROquel] 300 mg PO BID #30 tablet Linezolid [Zyvox] 600 mg PO BID #3 tablet
--- NOTE | 2018-11-27 16:41 | Progress Note ---
Assessment and Plan Cultures: Blood culture 11/14/2018 no growth today. Tracheal aspirated 11/14/2018 MRSA VITO=2 Tracheal aspirated 11/17/2018 pending Assessment: 58 y/o female with history of tobacco abuse, COPD with chronic respiratory failure on home oxygen known to our service in May 2018 with septic shock and MDR-Pseudomonas/Ecoli pneumonia, admitted on 11/14/2018 due to worsening SOB: 1) Sepsis: fever resolved x 48h; source is LLL pneumonia. CT chest showed LLL pneumonia with minimal emma effusions, no loculation or abscess. Tracheal asp on 11/14 MRSA VITO=2. Recent history of MDR Pseudomonas pneumonia; CXR with mild left basilar pleuroparietal disease, mild diffuse interstitial lung disease. During May 2018 admission she was treated with levaquin for 10 days as the Pseudomonas was resistant to cefepime, zosyn and sensitive to quinolones. Blood culture 11/14/2018 no growth today. Will continue meropenem and start vanacomycin. 2) Chronic respiratory failure: intubated. 3) COPD exacerbation with pneumonia. Recommendations: continue linezolid 600 mg PO q 12 hours D7 of 7 monitor platelets Will follow. Shukri Malone MD [facility] M: [phone] O: [phone] F: [phone] Subjective Date of service: 11/27/18 Principal diagnosis: Ac and ch hypoxic hypercapnic resp failure; AE-COPD; Tobacc o use disorder Interval history: Afebrile with elevated white count. no new issues. No SOB or cough. Objective - Exam Narrative Exam: General appearance: Alert in NAD Eyes: anicteric sclerae, moist conjunctivae; no lid-lag; PERRLA HENT: Atraumatic; oropharynx +ETT +OGT Lungs: emma rhonchi CV: RRR no murmur Abdomen: Soft, non-tender; no masses or hepatosplenomegaly Extremities: no edema, no cyanosis Skin: multiple emma arms ecchymoses Psych: no agitated Neuro: Moves spontaneously. - Constitutional Vitals: Vital Signs Temp Pulse Resp BP Pulse Ox 98.0 F 71 20 103/69 95 11/27/18 07:40 11/27/18 12:00 11/27/18 08:00 11/27/18 11:38 11/27/18 12:00 Temperature -Last 24 Hours Temperature 98.0 F Temperature 98.5 F Temperature 97.8 F Temperature 97.7 F Temperature 97.6 F - Labs CBC & Chem 7: 11/27/18 05:04 11/24/18 05:57 Labs: Abnormal lab results 11/26/18 11/26/18 11/27/18 Range/Units 20:46 22:57 05:04 WBC 14.6 H (4.5-11.0) K/mm3 RBC 5.15 H (3.65-5.03) M/mm3 MCV 78 L (79-97) fl MCH 23 L (28-32) pg RDW 21.5 H (13.2-15.2) % Lymph % (Auto) 7.3 L (13.4-35.0) % Lymph # 1.1 L (1.2-5.4) K/mm3 Seg Neutrophils % 86.3 H (40.0-70.0) % Seg Neutrophils # 12.4 H (1.8-7.7) K/mm3 POC Glucose 132 H (70-105) CK-MB (CK-2) 4.4 H (0.0-4.0) ng/mL CK-MB (CK-2) Rel Index 5.5 H (0-4) Troponin T 0.035 H D (0.00-0.029) ng/mL 11/27/18 11/27/18 Range/Units 07:46 11:28 WBC (4.5-11.0) K/mm3 RBC (3.65-5.03) M/mm3 MCV (79-97) fl MCH (28-32) pg RDW (13.2-15.2) % Lymph % (Auto) (13.4-35.0) % Lymph # (1.2-5.4) K/mm3 Seg Neutrophils % (40.0-70.0) % Seg Neutrophils # (1.8-7.7) K/mm3 POC Glucose 120 H 118 H (70-105) CK-MB (CK-2) (0.0-4.0) ng/mL CK-MB (CK-2) Rel Index (0-4) Troponin T (0.00-0.029) ng/mL
== END 2018-11-27 18:56 | disposition home health service (06) | DRG 207 ==
LOC: ED 18:36 → CC1 20:57 → 3A 11-23 14:28 → 4A 11-26 11:55
PROVIDERS: ADMIT Internal Medicine; ATTEND Internal Medicine
PROC: 5A1955Z Respiratory Ventilation, Greater than 96 Consecutive Hours (ICD-10-PCS; principal; 2018-11-14)
PROC: 0BH17EZ Insertion of Endotracheal Airway into Trachea, Via Natural or Artificial Opening (ICD-10-PCS; 2018-11-14)
PROC: 4A033R1 Measurement of Arterial Saturation, Peripheral, Percutaneous Approach (ICD-10-PCS; 2018-11-14)
PROC: 0BP1XDZ Removal of Intraluminal Device from Trachea, External Approach (ICD-10-PCS; 2018-11-22)
PROC: 5A09357 Assistance with Respiratory Ventilation, Less than 24 Consecutive Hours, Continuous Positive Airway Pressure (ICD-10-PCS; 2018-11-22)
PROC: 5A09357 Assistance with Respiratory Ventilation, Less than 24 Consecutive Hours, Continuous Positive Airway Pressure (ICD-10-PCS; 2018-11-23)
DX: J96.22 Acute and chronic respiratory failure with hypercapnia (principal); A41.9 Sepsis, unspecified organism; G93.41 Metabolic encephalopathy; I21.29 ST elevation (STEMI) myocardial infarction involving other sites; J18.1 Lobar pneumonia, unspecified organism; E87.0 Hyperosmolality and hypernatremia; J44.1 Chronic obstructive pulmonary disease with (acute) exacerbation; F11.20 Opioid dependence, uncomplicated; J44.0 Chronic obstructive pulmonary disease with (acute) lower respiratory infection; J90 Pleural effusion, not elsewhere classified; J96.21 Acute and chronic respiratory failure with hypoxia; K21.9 Gastro-esophageal reflux disease without esophagitis; I10 Essential (primary) hypertension; F41.9 Anxiety disorder, unspecified; F32.9 Major depressive disorder, single episode, unspecified; F17.210 Nicotine dependence, cigarettes, uncomplicated; D69.6 Thrombocytopenia, unspecified; R94.31 Abnormal electrocardiogram [ECG] [EKG]; G89.29 Other chronic pain; I48.0 Paroxysmal atrial fibrillation; I25.118 Atherosclerotic heart disease of native coronary artery with other forms of angina pectoris; I25.2 Old myocardial infarction; Z90.49 Acquired absence of other specified parts of digestive tract; Z95.5 Presence of coronary angioplasty implant and graft
CPT/HCPCS: 31500; 36415; 36600; 71045; 71260; 74018; 80048; 80053; 80061; 80202; 81001; 82140; 82271; 82550; 82553; 82803; 82962; 83735; 84484; 85007; 85014; 85018; 85025; 85027; 85049; 85610; 85730; 86140; 87040; 87070; 87076; 87086; 87186; 87205; 93005; 93010; 93970; 94002; 94003; 94640; 94644; 94660; 94760; 96365; 96375; 99406; G0378; A9270-GY; J0456; J1644; J1650; J1815; J1940; J1956; J2020; J2060; J2185; J2250; J2405; J2543; J2920; J2930; J3010; J3370; J7030; J7040; J7050

== ENCOUNTER 2019-06-11 17:04 | Inpatient (IN) | payer MEDICARE ==
[2019-06-11] MEDS ORDERED: KETAMINE 500 MG/5 ML VIAL MDV ONE (17:30)
[2019-06-11] MEDS ORDERED: ALBUTEROL 2.5 MG/3 ML NEBU IH ONE (17:44)
[2019-06-11] MEDS ORDERED: MINERAL OIL/PETROLATUM, WHITE OPHTH OINT 3.5 GM OU PRN (17:44)
[2019-06-11] MEDS ORDERED: IPRATROPIUM 0.02% NEBU 2.5 ML IH ONE (17:44)
[2019-06-11] MEDS ORDERED: LIP THERAPY VASELINE TP PRN (17:44)
[2019-06-11] MEDS ORDERED: methylPREDNISolone Sod Succinate 125 MG/2 ML INJ IV ONE (17:44)
[2019-06-11] MEDS ORDERED: KETAMINE 500 MG/5 ML VIAL MDV IV ONE (17:45)
[2019-06-11] MEDS ORDERED: MAGNESIUM SULFATE 2 GM/50 ML BAG IV ONE (17:45)
[2019-06-11] MEDS ORDERED: ROCURONIUM 50 MG/5 ML INJ IV ONE (17:45)
--- NOTE | 2019-06-11 17:51 | Emergency Department Report ---
ED General Adult HPI - General Chief complaint: Dyspnea/Respdistress Stated complaint: COPD Time Seen by Provider: 06/11/19 17:22 Source: EMS ( EMS documentation not available at time of chart dictation ), RN notes reviewed, old records reviewed Mode of arrival: Stretcher Limitations: Altered Mental Status, Physical Limitation - History of Present Illness Initial comments: Patient is a 59-year-old female. I have evaluated this patient in the past. T he patient has a complex past medical history, including tobacco use, GERD, COPD, chronic respiratory failure, heart disease, stent, hypertension and anxiety. The patient was admitted to this hospital a few days ago for presumed COPD exacerbation. At that time, it appears that there was no concern for COVID 19. Apparently, the patient was admitted, and is documented to have eloped, apparently without telling anyone. Today, the patient is brought to the hospital by emergency medical services for altered mental status, and respiratory distress/failure. The patient is altered, and obtunded, and it cannot provide collateral information. As per verbal report from nursing team, who in turn received report from EMS, patient was found minimally responsive at home, in her trailer, by her sister, for uncertain duration of time and uncertain mechanism. In the emergency room, the patient is altered, moving 4 extremities, hypoxic, and not protecting her airway. She is therefore emergently intubated by myself. The patient is now currently intubated, and sedated, at this moment, there is no additional friend or family member available to provide collateral information or additional history. -: unknown Quality: other Consistency: other Improves with: other Worsens with: other Associated Symptoms: other Treatments Prior to Arrival: other - Related Data Home Medications Medication Instructions Recorded Confirmed Last Taken Lisinopril [Zestril] 10 mg PO DAILY 06/10/19 06/10/19 Unknown amLODIPine 5 mg PO DAILY 06/10/19 06/10/19 Unknown Previous Rx's Medication Instructions Recorded Last Taken Type Albuterol Sulfate [Proair 90 mcg IH Q4H PRN #1 pump 09/21/18 Unknown Rx Respiclick] Metoprolol [Lopressor TAB] 12.5 mg PO BID #60 tablet 11/27/18 Unknown Rx Nicotine [Habitrol] 14 mg TD QDAY #30 patch 11/27/18 Unknown Rx ALBUTEROL NEB's [Proventil 0.083% 2.5 mg IH Q4HRT PRN #15 nebu 03/05/19 Unknown Rx NEBS] ALPRAZolam [Xanax TAB] 0.25 mg PO Q8H PRN #15 tablet 03/05/19 Unknown Rx Acetaminophen [Acetaminophen TAB] 650 mg PO Q4H PRN tablet 03/05/19 Unknown Rx Arformoterol Nebu [Brovana Nebu] 15 mcg IH Q12HRT #30 ml 03/05/19 Unknown Rx Baclofen [Lioresal] 10 mg PO BID tablet 03/05/19 Unknown Rx Budesonide [Pulmicort Respules] 0.5 mg IH Q12HRT #30 nebu 03/05/19 Unknown Rx HYDROcodone/APAP 5-325 [[place] 1 each PO BID PRN #15 tablet 03/05/19 Unknown Rx 5-325 mg TAB] Lansoprazole Solutab [Prevacid 30 mg FEEDTUBE QDAY #30 tab.rapdis 03/05/19 Unknown Rx Solutab] Nitroglycerin [Nitrostat] 0.4 mg SL Q5M PRN #30 tab 03/05/19 Unknown Rx Potassium Chloride [K-Dur] 10 meq PO QDAY #30 tablet 03/05/19 Unknown Rx QUEtiapine [SEROquel] 300 mg PO BID tablet 03/05/19 Unknown Rx Venlafaxine [Effexor 25mg tab] 25 mg PO TID #90 tablet 03/05/19 Unknown Rx Venlafaxine [Effexor] 75 mg PO TID #90 tablet 03/05/19 Unknown Rx busPIRone [Buspar] 5 mg PO BID #60 tablet 03/05/19 Unknown Rx predniSONE [Deltasone] 40 mg PO QDAY #30 tablet 03/05/19 Unknown Rx Allergies Allergy/AdvReac Type Severity Reaction Status Date / Time hydromorphone [From Dilaudid] Allergy Unknown Verified 09/28/18 21:25 phenobarbital Allergy Unknown Verified 09/28/18 21:25 ED Review of Systems ROS: Stated complaint: COPD Other details as noted in HPI Comment: Unobtainable due to pts medical conditions ED Past Medical Hx - Past Medical History Previous Medical History?: Yes Hx Hypertension: Yes Hx Heart Attack/AMI: Yes Hx Congestive Heart Failure: Yes Hx Diabetes: No Hx Deep Vein Thrombosis: No Hx GERD: Yes Hx Liver Disease: Yes Hx Psychiatric Treatment: Yes (depression and anxiety) Hx Asthma: No Hx COPD: Yes Hx HIV: No - Surgical History Past Surgical History?: Yes Hx Coronary Stent: Yes Hx Pacemaker: No Hx Internal Defibrillator: No Hx Appendectomy: Yes Additional Surgical History: heart stents, Back surgery - Social History Smoking Status: Current Every Day Smoker Substance Use Type: None - Medications Home Medications: Home Medications Medication Instructions Recorded Confirmed Last Taken Type Albuterol Sulfate [Proair 90 mcg IH Q4H PRN #1 pump 09/21/18 02/21/19 Unknown Rx Respiclick] Metoprolol [Lopressor TAB] 12.5 mg PO BID #60 tablet 11/27/18 06/10/19 Unknown Rx Nicotine [Habitrol] 14 mg TD QDAY #30 patch 11/27/18 02/21/19 Unknown Rx ALBUTEROL NEB's [Proventil 0.083% 2.5 mg IH Q4HRT PRN #15 nebu 03/05/19 Unknown Rx NEBS] ALPRAZolam [Xanax TAB] 0.25 mg PO Q8H PRN #15 tablet 03/05/19 Unknown Rx Acetaminophen [Acetaminophen TAB] 650 mg PO Q4H PRN tablet 03/05/19 Unknown Rx Arformoterol Nebu [Brovana Nebu] 15 mcg IH Q12HRT #30 ml 03/05/19 Unknown Rx Baclofen [Lioresal] 10 mg PO BID tablet 03/05/19 Unknown Rx Budesonide [Pulmicort Respules] 0.5 mg IH Q12HRT #30 nebu 03/05/19 Unknown Rx HYDROcodone/APAP 5-325 [[place] 1 each PO BID PRN #15 tablet 03/05/19 Unknown Rx 5-325 mg TAB] Lansoprazole Solutab [Prevacid 30 mg FEEDTUBE QDAY #30 tab.rapdis 03/05/19 Unknown Rx Solutab] Nitroglycerin [Nitrostat] 0.4 mg SL Q5M PRN #30 tab 03/05/19 02/21/19 Unknown Rx Potassium Chloride [K-Dur] 10 meq PO QDAY #30 tablet 03/05/19 Unknown Rx QUEtiapine [SEROquel] 300 mg PO BID tablet 03/05/19 Unknown Rx Venlafaxine [Effexor 25mg tab] 25 mg PO TID #90 tablet 03/05/19 06/10/19 Unknown Rx Venlafaxine [Effexor] 75 mg PO TID #90 tablet 03/05/19 06/10/19 Unknown Rx busPIRone [Buspar] 5 mg PO BID #60 tablet 03/05/19 Unknown Rx predniSONE [Deltasone] 40 mg PO QDAY #30 tablet 03/05/19 Unknown Rx Lisinopril [Zestril] 10 mg PO DAILY 06/10/19 06/10/19 Unknown History amLODIPine 5 mg PO DAILY 06/10/19 06/10/19 Unknown History ED Physical Exam - General Limitations: Altered Mental Status General appearance: obtunded - Head Head exam: Present: atraumatic, normocephalic - Eye Eye exam: Present: normal appearance - ENT ENT exam: Present: mucous membranes dry, mucous membranes moist, normal external ear exam - Neck Neck exam: Present: normal inspection, full ROM - Respiratory Respiratory exam: Present: respiratory distress, decreased breath sounds - Cardiovascular Cardiovascular Exam: Present: regular rate, normal rhythm, normal heart sounds. Absent: bradycardia, tachycardia, irregular rhythm, systolic murmur, diastolic murmur, rubs, gallop - GI/Abdominal GI/Abdominal exam: Present: soft. Absent: distended, tenderness, guarding, rebound, rigid, pulsatile mass - Extremities Exam Extremities exam: Present: normal inspection, full ROM, other (2+ pulses noted in the bilateral upper and lower extremities. There is no palpable cord. negative Homans sign. Muscular compartments are soft. The pelvis is stable.). Absent: calf tenderness - Back Exam Back exam: Present: normal inspection. Absent: tenderness, CVA tenderness (R), CVA tenderness (L), paraspinal tenderness, vertebral tenderness - Neurological Exam Neurological exam: Present: altered, other (Patient is altered. Prior to intubation, she is moving 4 extremities spontaneously. She does not follow commands. She does produce nonsensical sounds) - Psychiatric Psychiatric exam: Present: anxious - Skin Skin exam: Present: warm, dry, intact, normal color. Absent: rash ED Course Vital Signs 06/11/19 06/11/19 06/11/19 17:35 17:39 17:42 Temperature 96.7 F L Pulse Rate 90 73 Pulse Rate [ Bilateral] Respiratory 22 20 14 Rate Respiratory Rate [Bilateral ] Blood Pressure 146/74 O2 Sat by Pulse 77 L 100 97 Oximetry 06/11/19 06/11/19 06/11/19 17:45 18:00 18:15 Temperature Pulse Rate 88 92 H 71 Pulse Rate [ 84 Bilateral] Respiratory 14 11 L 14 Rate Respiratory 14 Rate [Bilateral ] Blood Pressure 126/60 132/73 124/51 O2 Sat by Pulse 93 98 100 Oximetry 06/11/19 06/11/19 06/11/19 18:30 18:45 19:00 Temperature Pulse Rate 73 69 64 Pulse Rate [ Bilateral] Respiratory 14 14 13 Rate Respiratory Rate [Bilateral ] Blood Pressure 136/66 117/52 109/51 O2 Sat by Pulse 100 96 98 Oximetry 06/11/19 06/11/19 06/11/19 19:15 19:30 19:45 Temperature Pulse Rate 79 69 64 Pulse Rate [ Bilateral] Respiratory 13 13 14 Rate Respiratory Rate [Bilateral ] Blood Pressure 109/51 128/59 118/53 O2 Sat by Pulse 94 93 95 Oximetry 06/11/19 06/11/19 06/11/19 20:00 20:37 20:45 Temperature Pulse Rate 69 86 88 Pulse Rate [ Bilateral] Respiratory 14 12 14 Rate Respiratory Rate [Bilateral ] Blood Pressure 124/58 124/58 115/50 O2 Sat by Pulse 85 85 86 Oximetry 06/11/19 06/11/19 06/11/19 21:01 21:15 21:31 Temperature Pulse Rate 76 73 73 Pulse Rate [ Bilateral] Respiratory 14 12 14 Rate Respiratory Rate [Bilateral ] Blood Pressure 85/37 89/42 80/38 O2 Sat by Pulse 93 95 94 Oximetry 06/11/19 06/11/19 06/11/19 21:45 22:00 22:15 Temperature Pulse Rate 71 68 66 Pulse Rate [ Bilateral] Respiratory 14 14 14 Rate Respiratory Rate [Bilateral ] Blood Pressure 75/39 88/46 94/50 O2 Sat by Pulse 94 97 98 Oximetry 06/11/19 22:30 Temperature Pulse Rate 66 Pulse Rate [ Bilateral] Respiratory 14 Rate Respiratory Rate [Bilateral ] Blood Pressure 94/45 O2 Sat by Pulse 97 Oximetry - Reevaluation(s) Reevaluation #1: 06/11/19 19:06 Differential diagnosis, including but not limited to: Respiratory failure, acute on chronic, noncompliance, pneumonia, urinary tract infection, intracranial injury, overdose, multifactorial encephalopathy Assessment and plan: 59-year-old female with a history of noncompliance, recently admitted to this hospital for COPD exacerbation, reportedly eloped, now presenting with obtundation, and respiratory failure. She is not a candidate for BiPAP therapy, and is therefore emergently intubated by myself using direct laryngoscopy, facilitated by ketamine and rocuronium. As per review of recent documentation, no suspicion for coronavirus. Nevertheless, I intubated this patient with an 95 mask, surgical mask, double globes, eye protection, and a hair net/head protection. Patient will be ventilated on lung protective strategy. I think pneumonia is less likely but we will cover the patient empirically with ceftriaxone and azithromycin. CT scan of the brain, cervical spine and chest will be obtained. Discussed with critical care physician on-call, Dr. Reich, who agrees to follow the patient in the intensive care unit. Patient reassessed, appears much clinically improved on ventilator, head of bed elevated to 30 degrees, steroids, albuterol, Atrovent, magnesium. We will admit the patient to the medical service once her diagnostics have resulted. Reevaluation #2: 06/11/19 21:06 CT scan of the brain and cervical spine negative for acute disease. CT scan of the chest pending. Patient more arousable on ventilator, moving extremities without difficulty and even following commands. Verbal order relayed to nurse to administer sedation Reevaluation #3: 06/11/19 21:35 CT scan of the chest negative for acute pathology. Hospital physician, Dr. Kemp, to admit patient to the medical service. 06/11/19 21:37 Blood pressure 86/44 manual, this is unusual for patient, IV fluid bolus ordered. Nursing team verbally instructed to pressure bag. Last ejection fraction 45 to 50%. Reevaluation #4: 06/11/19 22:44 Blood pressure improved, 98/50 mmHg. Patient appears to be resting comfortably on the ventilator. - Intubation Time Out Performed: No Sedative: Ketamine Mg Given: 150 Paralytic: Rocuronium Mg Given: 100 Laryngoscope: Mahamed Size: 3 Assist Device Used: fiberoptic device ET Tube Size: 7.5 Tube Secured Depth (cm): 23 Tube Secured Location: teeth Tube Placement Confirmation: visualized tube passing t, equal breath sounds bilat, no breath sounds over epi, confirmation by capnometr Patient Tolerated Procedure: well Intubation Complications: none ED Medical Decision Making - Lab Data Result diagrams: 06/11/19 18:03 06/11/19 18:03 Vital Signs 06/11/19 06/11/19 06/11/19 17:35 17:39 17:42 Temperature 96.7 F L Pulse Rate 90 73 Pulse Rate [ Bilateral] Respiratory 22 20 14 Rate Respiratory Rate [Bilateral ] Blood Pressure 146/74 O2 Sat by Pulse 77 L 100 97 Oximetry 06/11/19 06/11/19 06/11/19 17:45 18:00 18:15 Temperature Pulse Rate 88 92 H 71 Pulse Rate [ 84 Bilateral] Respiratory 14 11 L 14 Rate Respiratory 14 Rate [Bilateral ] Blood Pressure 126/60 132/73 124/51 O2 Sat by Pulse 93 98 100 Oximetry 06/11/19 18:30 Temperature Pulse Rate 73 Pulse Rate [ Bilateral] Respiratory 14 Rate Respiratory Rate [Bilateral ] Blood Pressure 136/66 O2 Sat by Pulse 100 Oximetry Lab Results 06/11/19 06/11/19 06/11/19 Range/Units 18:03 18:03 18:03 WBC 8.1 (4.5-11.0) K/mm3 RBC 4.58 (3.65-5.03) M/mm3 Hgb 11.2 (10.1-14.3) gm/dl Hct 38.1 (30.3-42.9) % MCV 83 (79-97) fl MCH 25 L (28-32) pg MCHC 30 (30-34) % RDW 19.4 H (13.2-15.2) % Plt Count 124 L (140-440) K/mm3 Lymph % (Auto) 13.7 (13.4-35.0) % [place] % (Auto) 10.3 H (0.0-7.3) % Eos % (Auto) 0.8 (0.0-4.3) % Baso % (Auto) 0.8 (0.0-1.8) % Lymph # 1.1 L (1.2-5.4) K/mm3 [place] # 0.8 (0.0-0.8) K/mm3 Eos # 0.1 (0.0-0.4) K/mm3 Baso # 0.1 (0.0-0.1) K/mm3 Seg Neutrophils % 74.4 H (40.0-70.0) % Seg Neutrophils # 6.0 (1.8-7.7) K/mm3 PT 13.0 (12.2-14.9) Sec. INR 0.97 (0.87-1.13) Sodium 146 H (137-145) mmol/L Potassium 4.3 D (3.6-5.0) mmol/L Chloride 103.2 (98-107) mmol/L Carbon Dioxide 28 (22-30) mmol/L Anion Gap 19 mmol/L BUN 21 H (7-17) mg/dL Creatinine 0.4 L (0.7-1.2) mg/dL Estimated GFR > 60 ml/min BUN/Creatinine Ratio 53 % Glucose 86 (65-100) mg/dL Calcium 8.9 (8.4-10.2) mg/dL Magnesium 2.70 H (1.7-2.3) mg/dL Total Bilirubin 0.30 (0.1-1.2) mg/dL AST 14 (5-40) units/L ALT 8 (7-56) units/L Alkaline Phosphatase 85 (35-129) units/L Total Protein 6.4 (6.3-8.2) g/dL Albumin 3.5 L (3.9-5) g/dL Albumin/Globulin Ratio 1.2 % Acetaminophen (10.0-30.0) ug/mL 04/24/20 Range/Units 18:03 WBC (4.5-11.0) K/mm3 RBC (3.65-5.03) M/mm3 Hgb (10.1-14.3) gm/dl Hct (30.3-42.9) % MCV (79-97) fl MCH (28-32) pg MCHC (30-34) % RDW (13.2-15.2) % Plt Count (140-440) K/mm3 Lymph % (Auto) (13.4-35.0) % [place] % (Auto) (0.0-7.3) % Eos % (Auto) (0.0-4.3) % Baso % (Auto) (0.0-1.8) % Lymph # (1.2-5.4) K/mm3 [place] # (0.0-0.8) K/mm3 Eos # (0.0-0.4) K/mm3 Baso # (0.0-0.1) K/mm3 Seg Neutrophils % (40.0-70.0) % Seg Neutrophils # (1.8-7.7) K/mm3 PT (12.2-14.9) Sec. INR (0.87-1.13) Sodium (137-145) mmol/L Potassium (3.6-5.0) mmol/L Chloride (98-107) mmol/L Carbon Dioxide (22-30) mmol/L Anion Gap mmol/L BUN (7-17) mg/dL Creatinine (0.7-1.2) mg/dL Estimated GFR ml/min BUN/Creatinine Ratio % Glucose (65-100) mg/dL Calcium (8.4-10.2) mg/dL Magnesium (1.7-2.3) mg/dL Total Bilirubin (0.1-1.2) mg/dL AST (5-40) units/L ALT (7-56) units/L Alkaline Phosphatase (35-129) units/L Total Protein (6.3-8.2) g/dL Albumin (3.9-5) g/dL Albumin/Globulin Ratio % Acetaminophen < 5.0 L (10.0-30.0) ug/mL - EKG Data -: EKG Interpreted by Il EKG shows normal: sinus rhythm Rate: normal - EKG Data 06/11/19 19:00 Sinus rhythm, 65 bpm, normal axis, low voltage, QTC within normal limits, SC interval within normal limits, Q waves noted in the inferior leads, the EKG appears to be unchanged from prior, the EKG is not a STEMI. - Radiology Data Radiology results: report reviewed, image reviewed Print Report Referring Physician: MATTEO GONZALEZ Patient Name: GARETT GARCIA Date of : 1960 Sex: Female Report Date: 2019-06-11 Report Status: Finalized Findings [facility] [address] [place] [address] XRay Report Signed Patient: GARETT GARCIA MR#: [id number] : 1960 Acct:[id number] Age/Sex: 59 / F ADM Date: 06/11/19 Loc: ED Attending Dr: Ordering Physician: MATTEO GONZALEZ MD Date of Service: 06/11/19 Procedure(s): XR chest 1V ap Accession Number(s): [id number] cc: MATTEO GONZALEZ MD Fluoro Time In Minutes: CHEST 1 VIEW 5:51 PM INDICATION / CLINICAL INFORMATION: MAIN: ETT placement; Pt. arrives via EMS for AMS s/t anoxia. Pt. found by her sister "blue" and unresponsive. Pt. has hx of COPD. Pt. arrived on a non rebreather at 62%. COMPARISON: 06/09/19. FINDINGS: SUPPORT DEVICES: There is a new endotracheal tube with the tip approximately 2 cm above the carlos manuel. There is a new nasogastric tube coursing into the stomach with the tip not seen. HEART / MEDIASTINUM: The heart size is normal. There is prominence of the central pulmonary vasculature. LUNGS / PLEURA: Mild subsegmental parenchymal disease in the left lower lung is new. No pneumothorax. ADDITIONAL FINDINGS: No significant additional findings. IMPRESSION: 1. Endotracheal tube tip is approximately 2 cm above the carlos manuel. 2. Mild prominence of the central pulmonary vessels without o vert edema. 3. Mild left basilar subsegmental atelectasis is new. Signer Name: Cristopher Cobos MD Signed: 06/11/2019 6:13 PM Workstation Name: [id number] Transcribed By: RT Dictated By: Cristopher Cobos MD Electronically Authenticated By: Cristopher Cobos MD Signed Date/Time: 06/11/191812 DD/ 09 Print Report Referring Physician: MATTEO GNOZALEZ Patient Name: GARETT GARCIA Date of : 1960 Sex: Female Report Date: 2019-06-11 Report Status: Finalized Findings [facility] [address] [place] [address] Cat Scan Report Signed Patient: GARETT GARCIA MR#: [id number] : 1960 Acct:[id number] Age/Sex: 59 / F ADM Date: 06/11/19 Loc: ED Attending Dr: Talon garcia Physician: MATTEO GONZALEZ MD Date of Service: 06/11/19 Procedure(s): CT chest wo con Accession Number(s): [id number] cc: MATTEO GONZALEZ MD CT chest wo con INDICATION / CLINICAL INFORMATION: acute resp failure. TECHNIQUE: All CT scans at this location are performed using CT dose reduction for ALARA by means of automated exposure control. COMPARISON: 11/18/2018 INDICATION / CLINICAL INFORMATION: acute resp failure. TECHNIQUE: All CT scans at this location are performed using CT dose reduction for ALARA by means of automated exposure control. COMPARISON: 11/18/2018 FINDINGS: The endotracheal tube and nasogastric tubes are satisfactorily positioned. Left basilar opacity has appearance of atelectasis. No other evidence of acute pulmonary disease. Mediastinal images show no adenopathy or pericardial effusion. Extensive postsurgical changes with hardware in the thoracic spine. There are multiple old right posterior rib fractures. Limited upper abdominal images show no acute abnormality. IMPRESSION: 1. Atelectasis in the left lower lung. Signer Name: Blair Mcarthur MD Signed: 06/11/2019 9:14 PM Workstation Name: [id number] Transcribed By: [place] Dictated By: Blair Mcarthur MD Electronically Authenticated By: Blair Mcarthur MD Signed Date/Time: 06/11/192113 DD/ 53 Critical Care Time: Yes Critical care time in (mins) excluding proc time.: 60 Critical care attestation.: If time is entered above; I have spent that time in minutes in the direct care of this critically ill patient, excluding procedure time. ED Disposition Clinical Impression: Acute encephalopathy Acute respiratory failure Qualifiers: Respiratory failure complication: unspecified whether with hypoxia or hypercapnia Qualified Code(s): J96.00 - Acute respiratory failure, unspecified whether with hypoxia or hypercapnia Disposition: DC-09 OP ADMIT IP TO THIS HOSP Is pt being admited?: Yes Does the pt Need Aspirin: No Condition: Critical Referrals: [facility] [Other] - 3-5 Days
[2019-06-11] MEDS: fentaNYL DRIP Premix 2,000 MCG/100 ML BAG IV SCH (18:00)
[2019-06-11] MEDS: fentaNYL 100 MCG/2 ML INJ IV PRN ×2 (18:06→20:52)
--- NOTE | 2019-06-11 18:17 | XRay Report ---
CHEST 1 VIEW 5:51 PM INDICATION / CLINICAL INFORMATION: MAIN: ETT placement; Pt. arrives via EMS for AMS s/t anoxia. Pt. found by her sister "blue" and unre sponsive. Pt. has hx of COPD. Pt. arrived on a non rebreather at 62%. COMPARISON: 06/09/19. FINDINGS: SUPPORT DEVICES: There is a new endotracheal tube with the tip approximately 2 cm above the carlos manuel. T here is a new nasogastric tube coursing into the stomach with the tip not seen. HEART / MEDIASTINUM: The heart size is normal. There is prominence of the central pulmonary vasculatu re. LUNGS / PLEURA: Mild subsegmental parenchymal disease in the left lower lung is new. No pneumothorax. ADDITIONAL FINDINGS: No significant additional findings. IMPRESSION: 1. Endotracheal tube tip is approximately 2 cm above the carlos manuel. 2. Mild prominence of the central pulmonary vessels without overt edema. 3. Mild left basilar subsegmental atelectasis is new. Signer Name: Cristopher Cobos MD Signed: 06/11/2019 6:13 PM Workstation Name: [id number]
[2019-06-11 18:34] LABS: Basophils # (Auto) 0.1 K/mm3 (0.0-0.1); Basophils % (Auto) 0.8 % (0.0-1.8); Eosinophils # (Auto) 0.1 K/mm3 (0.0-0.4); Eosinophils % (Auto) 0.8 % (0.0-4.3); Lymphocytes # (Auto) 1.1 K/mm3 (1.2-5.4); Lymphocytes % (Auto) 13.7 % (13.4-35.0); Mean Corpuscular HGB Conc 30 % (30-34); Mean Corpuscular Volume 83 fl (79-97); Monocytes # (Auto) 0.8 K/mm3 (0.0-0.8); Monocytes % (Auto) 10.3 % (0.0-7.3); Platelet Count 124 K/mm3 (140-440); Red Blood Count 4.58 M/mm3 (3.65-5.03); Red Cell Distribution Width 19.4 % (13.2-15.2)
[2019-06-11 18:36] LABS: Hematocrit 38.1 % (30.3-42.9); Hemoglobin 11.2 gm/dl (10.1-14.3)
[2019-06-11 18:43] LABS: INR 0.97 (0.87-1.13)
[2019-06-11 18:55] LABS: Alanine Aminotransferase 8 units/L (7-56); Albumin 3.5 g/dL (3.9-5); BUN/Creatinine Ratio 53; Blood Urea Nitrogen 21 mg/dL (7-17); Calcium 8.9 mg/dL (8.4-10.2); Hemolysis Index 15
[2019-06-11] MEDS ORDERED: cefTRIAXone/NS 1 GM/50 ML 1 GM/50 ML BAG IV ONE (19:05)
[2019-06-11] MEDS ORDERED: SODIUM CHLORIDE 0.9% 500 ML 500 ML IV ONE (19:10)
[2019-06-11 19:13] LABS: ABG Base Excess 7.1 mmol/L (-2.0-3.0); ABG HCO3 34.6 mmol/L (20.0-26.0); ABG Methemoglobin 0.4 % (0.0-1.5); ABG Oxygen Saturation 95.1 % (95.0-99.0); ABG PCO2 65.6 mm Hg; ABG PH 7.34 pH Units (7.350-7.450)
[2019-06-11] MEDS ORDERED: AZITHROMYCIN 500 MG in SODIUM CHLORIDE 0.9% 250ML 250 ML IV ONE (19:30)
[2019-06-11] MEDS: LORazepam 2 MG/ML VIAL IV PRN (20:48)
[2019-06-11] MEDS: LORazepam 100 MG in SODIUM CHLORIDE 0.9% 50 ML, EMPTY BAG 0 ML IV SCH (20:50)
--- NOTE | 2019-06-11 20:55 | Cat Scan Report ---
CT BRAIN: 06/11/2019 INDICATION / CLINICAL INFORMATION: MAIN: ams resp fasilure found down, pt intubated and combative. COMPARISON: 02/22/2019 FINDINGS: BRAIN/INTRACRANIAL STRUCTURES: Unenhanced CT images of the brain were obtained and compared to the pr ior exam from 02/22/2019. There is been no change. There is no evidence of acute abnormality. Ventricles and sulci are within normal limits of size and shape for a patient of this age. Some chronic white matter hypoattenuation is noted in the cerebral hemispheric white matter. There is no evidence of acute ischemic injury, hemorrhage, or mass. There are no abnormal extra-axial fluid collections. EXTRACRANIAL STRUCTURES: Unremarkable. IMPRESSION: No acute abnormality. No change when compared to 02/22/2019. All CT scans at this location are performed using dose reduction to ALARA by means of automated expos ure control. Signer Name: Barrera Mckeon MD Signed: 06/11/2019 8:51 PM Workstation Name: [id number]
--- NOTE | 2019-06-11 20:57 | Cat Scan Report ---
CT CERVICAL SPINE: 06/11/2019 INDICATION / CLINICAL INFORMATION: MAIN: ams found down cant clear c spine, pt. intubated and combative. COMPARISON: None available. FINDINGS: CT images of the cervical spine were obtained. Images are evaluated in the axial, coronal, and sagitt al planes. There is no evidence of acute abnormality. Cervical hyperlordosis is present, associated with promin ent thoracic kyphosis. Vertebral body alignment and height is well preserved. Patient has an endotracheal tube and nasogastric tube in place. LEVEL BY LEVEL ANALYSIS: . CRANIOCERVICAL JUNCTION: Unremarkable. PARASPINAL STRUCTURES: Unremarkable IMPRESSION: No acute abnormality. All CT scans at this location are performed using dose reduction to ALARA by means of automated expos ure control. Signer Name: Barrera Mckeon MD Signed: 06/11/2019 8:53 PM Workstation Name: [id number]
--- NOTE | 2019-06-11 21:18 | Cat Scan Report ---
CT chest wo con INDICATION / CLINICAL INFORMATION: acute resp failure. TECHNIQUE: All CT scans at this location are performed using CT dose reduction for ALARA by means of automated e xposure control. COMPARISON: 11/18/2018 INDICATION / CLINICAL INFORMATION: acute resp failure. TECHNIQUE: All CT scans at this location are performed using CT dose reduction for ALARA by means of automated e xposure control. COMPARISON: 11/18/2018 FINDINGS: The endotracheal tube and nasogastric tubes are satisfactorily positioned. Left basilar opacity has appearance of atelectasis. No other evidence of acute pulmonary disease. Mediastinal images show no adenopathy or pericardial effusion. Extensive postsurgical changes with hardware in the thoracic spine. There are multiple old right posterior rib fractures. Limited upper abdominal images show no acute abnormality. IMPRESSION: 1. Atelectasis in the left lower lung. Signer Name: Blair Mcarthur MD Signed: 06/11/2019 9:14 PM Workstation Name: [id number]
[2019-06-11] MEDS ORDERED: SODIUM CHLORIDE 0.9% 1000 ML 2,000 ML IV ONE (21:37)
[2019-06-11] MEDS ORDERED: DEXTROSE 50% IN WATER (25GM) 50 ML SYRINGE IV PRN (22:48)
[2019-06-11] MEDS ORDERED: ONDANSETRON 4 MG/2 ML INJ IV PRN (22:48)
--- NOTE | 2019-06-11 23:11 | History and Physical Report ---
History of Present Illness History of present illness: This is a 59-year-old woman with a history of hypertension, GERD, depression, COPD, coronary artery disease, CHF was brought to the emergency room for evaluation. She was found slumped over and was brought to the emergency room for evaluation, she was intubated and treated for COPD exacerbation. The patient was here yesterday and was admitted for COPD exacerbation but then she eloped from the emergency room. Review of system is unobtainable patient will be admitted for COPD exacerbation, respiratory failure PAST MEDICAL HISTORY:hypertension, GERD, depression, COPD, coronary artery disease, CHF PAST SURGICAL HISTORY: Appendectomy, back surgery SOCIAL HISTORY: Denies alcohol, tobacco, drugs FAMILY HISTORY: Hypertension Medications and Allergies Allergies Allergy/AdvReac Type Severity Reaction Status Date / Time hydromorphone [From Dilaudid] Allergy Unknown Verified 09/28/18 21:25 phenobarbital Allergy Unknown Verified 09/28/18 21:25 Home Medications Medication Instructions Recorded Confirmed Last Taken Type Albuterol Sulfate [Proair 90 mcg IH Q4H PRN #1 pump 09/21/18 06/12/19 Unknown Rx Respiclick] Metoprolol [Lopressor TAB] 12.5 mg PO BID #60 tablet 11/27/18 06/12/19 06/09/19 Rx Nicotine [Habitrol] 14 mg TD QDAY #30 patch 11/27/18 06/12/19 Unknown Rx ALBUTEROL NEB's [Proventil 0.083% 2.5 mg IH Q4HRT PRN #15 nebu 03/05/19 06/12/19 Unknown Rx NEBS] ALPRAZolam [Xanax TAB] 0.25 mg PO Q8H PRN #15 tablet 03/05/19 06/12/19 Unknown Rx Acetaminophen [Acetaminophen TAB] 650 mg PO Q4H PRN tablet 03/05/19 06/12/19 Unknown Rx Arformoterol Nebu [Brovana Nebu] 15 mcg IH Q12HRT #30 ml 03/05/19 06/12/19 Unknown Rx Baclofen [Lioresal] 10 mg PO BID tablet 03/05/19 06/12/19 Unknown Rx Budesonide [Pulmicort Respules] 0.5 mg IH Q12HRT #30 nebu 03/05/19 06/12/19 Unknown Rx HYDROcodone/APAP 5-325 [[place] 1 each PO BID PRN #15 tablet 03/05/19 06/12/19 06/09/19 Rx 5-325 mg TAB] Lansoprazole Solutab [Prevacid 30 mg FEEDTUBE QDAY #30 tab.rapdis 03/05/19 06/12/19 Unknown Rx Solutab] Nitroglycerin [Nitrostat] 0.4 mg SL Q5M PRN #30 tab 03/05/19 06/12/19 Unknown Rx Potassium Chloride [K-Dur] 10 meq PO QDAY #30 tablet 03/05/19 06/12/19 Unknown Rx QUEtiapine [SEROquel] 300 mg PO BID tablet 03/05/19 06/12/19 06/09/19 Rx Venlafaxine [Effexor 25mg tab] 25 mg PO TID #90 tablet 03/05/19 06/12/19 06/09/19 Rx Venlafaxine [Effexor] 75 mg PO TID #90 tablet 03/05/19 06/12/19 06/02/19 Rx busPIRone [Buspar] 5 mg PO BID #60 tablet 03/05/19 06/12/19 06/09/19 Rx predniSONE [Deltasone] 40 mg PO QDAY #30 tablet 03/05/19 06/12/19 Unknown Rx Lisinopril [Zestril] 10 mg PO DAILY 06/10/19 06/12/19 Unknown History amLODIPine 5 mg PO DAILY 06/10/19 06/12/19 04/12/19 History Active Meds: Active Medications Acetaminophen (Tylenol) 650 mg PO Q4H PRN PRN Reason: Pain MILD(1-3)/Fever >100.5/PRAJAPATI Dextrose (D50w (25gm) Syringe) 50 ml IV Q30MIN PRN; Protocol PRN Reason: Hypoglycemia Enoxaparin Sodium (Enoxaparin) 30 mg SUB-Q QDAY DOMINICK Fentanyl (Sublimaze) 50 mcg IV Q10MIN PRN PRN Reason: ANALGESIA Last Admin: 06/11/19 20:52 Dose: 50 mcg Documented by: Hydrophilic Ointment (Vaseline Lip Therapy) 1 applic TP Q2HR PRN PRN Reason: Dry Lips Fentanyl Citrate (Fentanyl Drip Premix) 2,000 mcg in 100 mls @ 3.742 mls/hr IV TITR DOMINICK; Protocol Last Admin: 06/11/19 18:00 Dose: 1 mcg/kg/hr, 3.742 mls/hr Documented by: Lorazepam 100 mg/ Sodium Chloride/ Miscellaneous Information 100 mls @ 1 mls/hr IV TITR DOMINICK; Protocol Last Admin: 06/11/19 20:50 Dose: 1 mg/hr, 1 mls/hr Documented by: Sodium Chloride (Nacl 0.9% 1000 Ml) 1,000 mls @ 75 mls/hr IV DIRECT DOMINICK Insulin Human Lispro (Humalog) 0 unit SUB-Q Q6HR DOMINICK; Protocol Lorazepam (Ativan) 2 mg IV Q10MIN PRN PRN Reason: Agitation Last Admin: 06/11/19 20:48 Dose: 2 mg Documented by: Multi-Ingred Cream/Lotion/Oil/Oint (Artificial Tears Ophth Oint) 1 applic OU Q4HR PRN PRN Reason: Dry Eye(s) Ondansetron HCl (Zofran) 4 mg IV Q8H PRN PRN Reason: Nausea And Vomiting Sodium Chloride (Sodium Chloride Flush Syringe 10 Ml) 10 ml IV BID DOMINICK Sodium Chloride (Sodium Chloride Flush Syringe 10 Ml) 10 ml IV PRN PRN PRN Reason: LINE FLUSH Exam - Physical Exam Narrative exam: Gen. appearance: Patient lying in bed, no apparent distress, intubated HEENT: Normocephalic, atraumatic, pupils equally round and reactive to light, extraocular movement intact, and no sclericterus,. No JVD or thyromegaly or nodule,neck supple, no carotid bruit ,mucous membranes moist, unable to examine oral cavity, ET tube in place Heart: S1, S2, regular rate and rhythm Lungs: Wheezing bilaterally, breathing comfortable Abdomen: Positive bowel sounds, nontender, nondistended, no organomegaly Extremity: no edema, cyanosis, clubbing Skin: No rash, nodules, warm, dry Neuro: Sedated - Constitutional Vitals: Temp Pulse Resp BP Pulse Ox 96.7 F L 66 14 94/45 97 06/11/19 17:39 06/11/19 22:30 06/11/19 22:30 06/11/19 22:30 06/11/19 22:30 Results - Labs CBC & Chem 7: 0504/20 04:58 06/21/19 04:58 Labs: Abnormal lab results 06/11/19 06/11/19 06/11/19 Range/Units 18:03 18:03 18:03 MCH 25 L (28-32) pg RDW 19.4 H (13.2-15.2) % Plt Count 124 L (140-440) K/mm3 [place] % (Auto) 10.3 H (0.0-7.3) % Lymph # 1.1 L (1.2-5.4) K/mm3 Seg Neutrophils % 74.4 H (40.0-70.0) % ABG pH (7.350-7.450) pH Units ABG pO2 (80.0-90.0) mm Hg ABG HCO3 (20.0-26.0) mmol/L ABG Base Excess (-2.0-3.0) mmol/L ABG Hemoglobin (12.0-16.0) gm/dl Oxyhemoglobin (95.0-99.0) % Sodium 146 H (137-145) mmol/L BUN 21 H (7-17) mg/dL Creatinine 0.4 L (0.7-1.2) mg/dL Magnesium 2.70 H (1.7-2.3) mg/dL Albumin 3.5 L (3.9-5) g/dL Salicylates 1.0 L (2.8-20.0) mg/dL Acetaminophen (10.0-30.0) ug/mL 06/11/19 06/11/19 Range/Units 18:03 18:59 MCH (28-32) pg RDW (13.2-15.2) % Plt Count (140-440) K/mm3 [place] % (Auto) (0.0-7.3) % Lymph # (1.2-5.4) K/mm3 Seg Neutrophils % (40.0-70.0) % ABG pH 7.340 L (7.350-7.450) pH Units ABG pO2 76.0 L (80.0-90.0) mm Hg ABG HCO3 34.6 H (20.0-26.0) mmol/L ABG Base Excess 7.1 H (-2.0-3.0) mmol/L ABG Hemoglobin 10.9 L (12.0-16.0) gm/dl Oxyhemoglobin 91.6 L (95.0-99.0) % Sodium (137-145) mmol/L BUN (7-17) mg/dL Creatinine (0.7-1.2) mg/dL Magnesium (1.7-2.3) mg/dL Albumin (3.9-5) g/dL Salicylates (2.8-20.0) mg/dL Acetaminophen < 5.0 L (10.0-30.0) ug/mL - Imaging and Cardiology EKG: image reviewed Chest x-ray: report reviewed CT scan - chest: report reviewed CT Scan - head: report reviewed Assessment and Plan CT spine reviewed Assessment Acute respiratory failure Status post intubation, consult critical care Continue sedation COPD exacerbation Start high-dose steroids, nebulizer treatments Depression Continue outpatient medications coronary artery disease/CHF stable DVT prophylaxis
[2019-06-12 00:01] LABS: Creatine Kinase MB 5.5 ng/mL (0.0-4.0)
[2019-06-12] MEDS ORDERED: SODIUM CHLORIDE 0.9% 1000 ML 1,000 ML ONE (00:20)
[2019-06-12] MEDS ORDERED: methylPREDNISolone Sod Succinate 125 MG/2 ML INJ ONE ×2 (00:20→07:00)
[2019-06-12] MEDS: methylPREDNISolone Sod Succinate 125 MG/2 ML INJ IV SCH ×5 (00:26→23:52)
[2019-06-12] MEDS: INSULIN LISPRO 100 UNIT/ML SUB-Q SCH ×4 (00:26→18:12)
[2019-06-12] MEDS: SODIUM CHLORIDE 0.9% 1000 ML 1,000 ML IV SCH ×2 (00:26→20:35)
[2019-06-12 02:27] LABS: Bacteria,Urine 1+ /HPF (Negative); Mucus,Urine 3+ /HPF
[2019-06-12 02:47] LABS: Bilirubin,Urine NEG (Negative); Blood,Urine LG (Negative); Color,Urine Yellow (Yellow)
[2019-06-12 02:48] LABS: RBC,Urine > 182.0 /HPF (0.0-6.0)
--- NOTE | 2019-06-12 03:34 | XRay Report ---
CHEST 1 VIEW 0226 INDICATION / CLINICAL INFORMATION: follow up respiratory failure. COMPARISON: 06/11/2019 FINDINGS: SUPPORT DEVICES: Stable as best can be appreciated with overlying spinal hardware HEART / MEDIASTINUM: Stable LUNGS / PLEURA: Poor degree of inspiration is seen. Mildly congested appearance is again noted. There appears to now be slight interstitial edema. Mild bibasilar atelectatic changes are noted. No defini te areas of consolidation are seen. No pneumothorax. ADDITIONAL FINDINGS: No significant additional findings. IMPRESSION: Mild worsening of congestion and atelectasis Signer Name: Alex Shay MD Signed: 06/12/2019 3:29 AM Workstation Name: [id number]
[2019-06-12 04:36] LABS: ABG Base Excess 2.6 mmol/L (-2.0-3.0); ABG HCO3 29.9 mmol/L (20.0-26.0); ABG Methemoglobin 0.4 % (0.0-1.5); ABG Oxygen Saturation 94.3 % (95.0-99.0); ABG PCO2 60.3 mm Hg; ABG PH 7.313 pH Units (7.350-7.450); ABG PO2 75.3 mm Hg (80.0-90.0)
[2019-06-12 05:44] LABS: Mean Corpuscular HGB Conc 30 % (30-34); Mean Corpuscular Volume 84 fl (79-97); Platelet Count 114 K/mm3 (140-440); Red Blood Count 4.28 M/mm3 (3.65-5.03); Red Cell Distribution Width 19.4 % (13.2-15.2)
[2019-06-12 05:48] LABS: Hematocrit 35.8 % (30.3-42.9); Hemoglobin 10.6 gm/dl (10.1-14.3)
[2019-06-12 06:00] LABS: BUN/Creatinine Ratio 48; Blood Urea Nitrogen 19 mg/dL (7-17); Calcium 8.2 mg/dL (8.4-10.2); Hemolysis Index 3
[2019-06-12 06:30] LABS: Basophils % (Manual) 0 % (0.0-1.8); Eosinophils % (Manual) 0 % (0.0-4.3); Total Cells Counted 100
[2019-06-12 06:31] LABS: Anisocytosis Few; Hypochromasia Few; Spherocytes Rare
[2019-06-12 06:32] LABS: Large Platelets Rare; Platelet Estimate Cons
[2019-06-12] MEDS ORDERED: fentaNYL DRIP Premix 2,000 MCG/100 ML BAG IV ONE (06:59)
[2019-06-12] MEDS: fentaNYL DRIP Premix 2,000 MCG/100 ML BAG IV SCH (08:36)
--- NOTE | 2019-06-12 08:58 | Event Note ---
Date: 06/12/19 This patient has been seen by Dr. Barragan, Dr. Torre and Dr. Bojorquez in the past. Please call them for consult. I have already placed the order. Thanks.
--- NOTE | 2019-06-12 09:02 | Progress Note ---
Assessment and Plan Assessment and plan: --Acute hypoxic and hypercapnic respiratory failure: Requiring intubation and ventilatory support Nebulizers, IV steroids, IV antibiotics inhalation steroids Pulmonary critical consulted Wean as tolerated and extubate --Acute exacerbation of COPD : Nebulizers steroids antibiotics Supportive care --History of coronary artery disease/CHF Well compensated. Continue current cardiac medications --History of depression; Resume antidepressive medications --Ongoing tobacco use; Will prison classification counselor smoking cessation when patient is more stable Nicotine patch as needed --Obesity; BMI 32.2 Patient needs weight reduction when medically stable --DVT prophylaxis; Lovenox --Full CODE STATUS Restraints in place Patient is critically ill with poor prognosis Closely monitor the patient and adjust management as needed Follow legal nurse consultant recommendations Critical care time 35 minutes History Interval history: Patient seen and examined at the bedside Patient's chart, medications, tests, consults recommendations reviewed Patient orally intubated on ventilatory support sedated Vital signs noted Hospitalist Physical - Constitutional Vitals: Temp Pulse Resp BP Pulse Ox 96.7 F L 79 28 H 98/46 95 06/11/19 17:39 06/12/19 06:30 06/12/19 06:30 06/12/19 06:30 06/12/19 06:30 General appearance: Present: no acute distress, well-nourished, obese, other (In tubated on ventilatory support sedated) - EENT Eyes: Present: PERRL, EOM intact - Neck Neck: Present: supple, normal ROM, other (ET tube and Dobbhoff in place) - Respiratory Respiratory effort: normal Respiratory: bilateral: diminished, rhonchi, negative: rales, wheezing - Cardiovascular Rhythm: regular Heart Sounds: Present: S1 & S2 - Extremities Extremities: no ischemia Extremity abnormal: edema - Abdominal General gastrointestinal: soft, non-tender, non-distended, normal bowel sounds - Integumentary Integumentary: Present: clear, warm - Psychiatric Psychiatric: appropriate mood/affect, other (Intubated on vent) - Neurologic Neurologic: other (Intubated on vent) Results - Labs CBC & Chem 7: 06/12/19 05:09 06/12/19 05:09 Labs: Laboratory Last Values WBC 5.2 K/mm3 (4.5-11.0) 06/12/19 05:09 RBC 4.28 M/mm3 (3.65-5.03) 06/12/19 05:09 Hgb 10.6 gm/dl (10.1-14.3) 06/12/19 05:09 Hct 35.8 % (30.3-42.9) 06/12/19 05:09 MCV 84 fl (79-97) 06/12/19 05:09 MCH 25 pg (28-32) L 06/12/19 05:09 MCHC 30 % (30-34) 06/12/19 05:09 RDW 19.4 % (13.2-15.2) H 06/12/19 05:09 Plt Count 114 K/mm3 (140-440) L 06/12/19 05:09 Lymph % (Auto) 13.7 % (13.4-35.0) 06/11/19 18:03 [place] % (Auto) 10.3 % (0.0-7.3) H 06/11/19 18:03 Eos % (Auto) 0.8 % (0.0-4.3) 06/11/19 18:03 Baso % (Auto) 0.8 % (0.0-1.8) 06/11/19 18:03 Lymph # 1.1 K/mm3 (1.2-5.4) L 06/11/19 18:03 [place] # 0.8 K/mm3 (0.0-0.8) 06/11/19 18:03 Eos # 0.1 K/mm3 (0.0-0.4) 06/11/19 18:03 Baso # 0.1 K/mm3 (0.0-0.1) 06/11/19 18:03 Add Manual Diff Complete 06/12/19 05:09 Total Counted 100 06/12/19 05:09 Seg Neutrophils % Housekeeping/Laundry Supervisor 06/12/19 05:09 Seg Neuts % (Manual) 91.0 % (40.0-70.0) H 06/12/19 05:09 Band Neutrophils % 0 % 06/12/19 05:09 Lymphocytes % (Manual) 7.0 % (13.4-35.0) L 06/12/19 05:09 Reactive Lymphs % (Man) 0 % 06/12/19 05:09 Monocytes % (Manual) 2.0 % (0.0-7.3) 06/12/19 05:09 Eosinophils % (Manual) 0 % (0.0-4.3) 06/12/19 05:09 Basophils % (Manual) 0 % (0.0-1.8) 06/12/19 05:09 Metamyelocytes % 0 % 06/12/19 05:09 Myelocytes % 0 % 06/12/19 05:09 Promyelocytes % 0 % 06/12/19 05:09 Blast Cells % 0 % 06/12/19 05:09 Nucleated RBC % Not Reportable 06/12/19 05:09 Seg Neutrophils # 6.0 K/mm3 (1.8-7.7) 06/11/19 18:03 Seg Neutrophils # Man 4.7 K/mm3 (1.8-7.7) 06/12/19 05:09 Band Neutrophils # 0.0 K/mm3 06/12/19 05:09 Lymphocytes # (Manual) 0.4 K/mm3 (1.2-5.4) L 06/12/19 05:09 Abs React Lymphs (Man) 0.0 K/mm3 06/12/19 05:09 Monocytes # (Manual) 0.1 K/mm3 (0.0-0.8) 06/12/19 05:09 Eosinophils # (Manual) 0.0 K/mm3 (0.0-0.4) 06/12/19 05:09 Basophils # (Manual) 0.0 K/mm3 (0.0-0.1) 06/12/19 05:09 Metamyelocytes # 0.0 K/mm3 06/12/19 05:09 Myelocytes # 0.0 K/mm3 06/12/19 05:09 Promyelocytes # 0.0 K/mm3 06/12/19 05:09 Blast Cells # 0.0 K/mm3 06/12/19 05:09 WBC Morphology Not Reportable 06/12/19 05:09 Hypersegmented Neuts Not Reportable 06/12/19 05:09 Hyposegmented Neuts Not Reportable 06/12/19 05:09 Hypogranular Neuts Not Reportable 06/12/19 05:09 Smudge Cells Not Reportable 06/12/19 05:09 Toxic Granulation Not Reportable 06/12/19 05:09 Toxic Vacuolation Not Reportable 06/12/19 05:09 Dohle Bodies Not Reportable 06/12/19 05:09 Pelger-Huet Anomaly Not Reportable 06/12/19 05:09 Neha Rods Not Reportable 06/12/19 05:09 Platelet Estimate Cons 06/12/19 05:09 Clumped Platelets Not Reportable 06/12/19 05:09 Plt Clumps, EDTA Not Reportable 06/12/19 05:09 Large Platelets Rare 06/12/19 05:09 Giant Platelets Not Reportable 06/12/19 05:09 Platelet Satelliting Not Reportable 06/12/19 05:09 Plt Morphology Comment Not Reportable 06/12/19 05:09 RBC Morphology Not Reportable 06/12/19 05:09 Dimorphic RBCs Not Reportable 06/12/19 05:09 Polychromasia Few 06/12/19 05:09 Hypochromasia Few 06/12/19 05:09 Poikilocytosis Not Reportable 06/12/19 05:09 Anisocytosis Few 06/12/19 05:09 Microcytosis Few 06/12/19 05:09 Macrocytosis Not Reportable 06/12/19 05:09 Spherocytes Rare 06/12/19 05:09 Pappenheimer Bodies Not Reportable 06/12/19 05:09 Sickle Cells Not Reportable 06/12/19 05:09 Target Cells Not Reportable 06/12/19 05:09 Tear Drop Cells Not Reportable 06/12/19 05:09 Ovalocytes Not Reportable 06/12/19 05:09 Helmet Cells Not Reportable 06/12/19 05:09 [place] Bodies Not Reportable 06/12/19 05:09 [place] Rings Not Reportable 06/12/19 05:09 Damien Cells Not Reportable 06/12/19 05:09 Bite Cells Not Reportable 06/12/19 05:09 Crenated Cell Not Reportable 06/12/19 05:09 Elliptocytes Not Reportable 06/12/19 05:09 Acanthocytes (Spur) Not Reportable 06/12/19 05:09 Rouleaux Not Reportable 06/12/19 05:09 Hemoglobin C Crystals Not Reportable 06/12/19 05:09 Schistocytes Not Reportable 06/12/19 05:09 Malaria parasites Not Reportable 06/12/19 05:09 Hernan Bodies Not Reportable 06/12/19 05:09 Hem Pathologist Commnt No 06/12/19 05:09 PT 13.0 Sec. (12.2-14.9) 06/11/19 18:03 INR 0.97 (0.87-1.13) 06/11/19 18:03 ABG pH 7.313 pH Units (7.350-7.450) L 06/12/19 04:20 ABG pCO2 60.3 mm Hg 06/12/19 04:20 ABG pO2 75.3 mm Hg (80.0-90.0) L 06/12/19 04:20 ABG HCO3 29.9 mmol/L (20.0-26.0) H 06/12/19 04:20 ABG O2 Saturation 94.3 % (95.0-99.0) L 06/12/19 04:20 ABG O2 Content 14.0 (0.0-44) 06/12/19 04:20 ABG Base Excess 2.6 mmol/L (-2.0-3.0) 06/12/19 04:20 ABG Hemoglobin 10.8 gm/dl (12.0-16.0) L 06/12/19 04:20 ABG Carboxyhemoglobin 2.1 % (0.0-5.0) 06/12/19 04:20 ABG Methemoglobin 0.4 % (0.0-1.5) 06/12/19 04:20 Oxyhemoglobin 92.0 % (95.0-99.0) L 06/12/19 04:20 FiO2 70 % 06/12/19 04:20 Sodium 147 mmol/L (137-145) H 06/12/19 05:09 Potassium 4.5 mmol/L (3.6-5.0) 06/12/19 05:09 Chloride 107.4 mmol/L (98-107) H 06/12/19 05:09 Carbon Dioxide 30 mmol/L (22-30) 06/12/19 05:09 Anion Gap 14 mmol/L 06/12/19 05:09 BUN 19 mg/dL (7-17) H 06/12/19 05:09 Creatinine 0.4 mg/dL (0.7-1.2) L 06/12/19 05:09 Estimated GFR > 60 ml/min 06/12/19 05:09 BUN/Creatinine Ratio 48 % 06/12/19 05:09 Glucose 110 mg/dL (65-100) H 06/12/19 05:09 POC Glucose 108 (70-105) H 06/12/19 06:42 Calcium 8.2 mg/dL (8.4-10.2) L 06/12/19 05:09 Magnesium 2.70 mg/dL (1.7-2.3) H 06/11/19 18:03 Total Bilirubin 0.30 mg/dL (0.1-1.2) 06/11/19 18:03 AST 14 units/L (5-40) 06/11/19 18:03 ALT 8 units/L (7-56) 06/11/19 18:03 Alkaline Phosphatase 85 units/L (35-129) 06/11/19 18:03 Total Creatine Kinase 74 units/L (30-135) 06/12/19 05:09 CK-MB (CK-2) 4.0 ng/mL (0.0-4.0) 06/12/19 05:09 CK-MB (CK-2) Rel Index 5.4 (0-4) H 06/12/19 05:09 Troponin T < 0.010 ng/mL (0.00-0.029) 06/12/19 05:09 Total Protein 6.4 g/dL (6.3-8.2) 06/11/19 18:03 Albumin 3.5 g/dL (3.9-5) L 06/11/19 18:03 Albumin/Globulin Ratio 1.2 % 06/11/19 18:03 Urine Color Yellow (Yellow) 06/12/19 02:04 Urine Turbidity Clear (Clear) 06/12/19 02:04 Urine pH 5.0 (5.0-7.0) 06/12/19 02:04 Ur Specific [place] 1.027 (1.003-1.030) 06/12/19 02:04 Urine Protein 30 mg/dl mg/dL (Negative) 06/12/19 02:04 Urine Glucose (UA) Neg mg/dL (Negative) 06/12/19 02:04 Urine Ketones 80 mg/dL (Negative) 06/12/19 02:04 Urine Blood Lg (Negative) 06/12/19 02:04 Urine Nitrite Neg (Negative) 06/12/19 02:04 Urine Bilirubin Neg (Negative) 06/12/19 02:04 Urine Urobilinogen 2.0 mg/dL (<2.0) 06/12/19 02:04 Ur Leukocyte Esterase Neg (Negative) 06/12/19 02:04 Urine WBC (Auto) 30.0 /HPF (0.0-6.0) H 06/12/19 02:04 Urine RBC (Auto) > 182.0 /HPF (0.0-6.0) 06/12/19 02:04 Urine Bacteria (Auto) 1+ /HPF (Negative) 06/12/19 02:04 Urine Mucus 3+ /HPF 06/12/19 02:04 Urine Yeast (Budding) Few /HPF 06/12/19 02:04 Salicylates 1.0 mg/dL (2.8-20.0) L 06/11/19 18:03 Acetaminophen < 5.0 ug/mL (10.0-30.0) L 06/11/19 18:03 Microbiology: Microbiology 06/11/19 19:16 Peripheral/Venous Blood Culture - Preliminary Culture in Progress 06/11/19 19:19 Peripheral/Venous Blood Culture - Preliminary Culture in Progress [place]/IV: IV Catheter Type [Right Wrist] Peripheral IV IV Catheter Type [Right Hand] Peripheral IV Active Medications - Current Medications Current Medications: Generic Name Dose Route Start Last Admin Trade Name Freq PRN Reason Stop Dose Admin Acetaminophen 650 mg 06/11/19 22:48 Tylenol PO Q4H PRN Pain MILD(1-3)/Fever >100.5/PRAJAPATI Albuterol/Ipratropium 1 ampul 06/12/19 08:00 Duoneb *Not For Prn Use* IH QIDRT DOMINICK Dextrose 50 ml 06/11/19 22:48 D50w (25gm) Syringe IV Q30MIN PRN Hypoglycemia Protocol Fentanyl 50 mcg 06/11/19 17:45 06/11/19 20:52 Sublimaze IV 50 mcg Q10MIN PRN Administration ANALGESIA Hydrophilic Ointment 1 applic 06/11/19 17:44 Vaseline Lip Therapy TP Q2HR PRN Dry Lips Fentanyl Citrate 2,000 mcg in 100 mls @ 3.742 mls/hr 06/11/19 18:00 06/12/19 08:36 Fentanyl Drip Premix IV 1 mcg/kg/hr TITR DOMINICK 3.742 mls/hr Administration Protocol 1 MCG/KG/HR Lorazepam 100 mg/ Sodium 100 mls @ 1 mls/hr 06/11/19 18:00 06/11/19 20:50 Chloride/ Miscellaneous IV 1 mg/hr Information TITR DOMINICK 1 mls/hr Administration Protocol 1 MG/HR Sodium Chloride 1,000 mls @ 75 mls/hr 06/11/19 23:00 06/12/19 00:26 Nacl 0.9% 1000 Ml IV 75 mls/hr DIRECT [facility] Administration Insulin Human Lispro 0 unit 06/12/19 00:00 06/12/19 06:37 Humalog SUB-Q Not Given Q6HR [facility] Protocol Lorazepam 2 mg 06/11/19 17:45 06/11/19 20:48 Ativan IV 2 mg Q10MIN PRN Administration Agitation Methylprednisolone Sodium Succinate 125 mg 06/12/19 00:00 06/12/19 07:06 Solu-Medrol IV 125 mg Q6HR [facility] Administration Multi-Ingred Cream/Lotion/Oil/Oint 1 applic 06/11/19 17:44 Artificial Tears Ophth Oint OU Q4HR PRN Dry Eye(s) Ondansetron HCl 4 mg 06/11/19 22:48 Zofran IV Q8H PRN Nausea And Vomiting Sodium Chloride 10 ml 06/12/19 10:00 Sodium Chloride Flush Syringe 10 Ml IV BID DOMINICK Sodium Chloride 10 ml 06/11/19 22:48 Sodium Chloride Flush Syringe 10 Ml IV PRN PRN LINE FLUSH
[2019-06-12] MEDS ORDERED: IPRATROPIUM/ALBUTEROL SULFATE 3 ML AMPUL.NEB IH ONE ×2 (09:32→13:43)
[2019-06-12] MEDS: IPRATROPIUM/ALBUTEROL SULFATE 3 ML AMPUL.NEB IH SCH ×4 (09:34→20:16)
[2019-06-12] MEDS ORDERED: ENOXAPARIN 30 MG/0.3 ML INJ SUB-Q SCH (10:00)
--- NOTE | 2019-06-12 13:41 | Consultation ---
History of Present Illness Consult date: 06/12/19 Requesting physician: CHACHA BARRIENTOS History of present illness: HISTORY PER MEDICAL RECORDS-DOCUMENTATION OF THE ED PHYSICIAN Patient is a 59-year-old female. I have evaluated this patient in the past. The patient has a complex past medical history, including tobacco use, GERD, COPD, chronic respiratory failure, heart disease, stent, hypertension and anxiety. The patient was admitted to this hospital a few days ago for presumed COPD exacerbation. At that time, it appears that there was no concern for COVID 19 Apparently, the patient was admitted, and is documented to have eloped, apparently without telling anyone. Today, the patient is brought to the hospital by emergency medical services for altered mental status, and respiratory distress/failure. The patient is altered, and obtunded, and it cannot provide collateral information. As per verbal report from nursing team, who in turn received report from EMS, patient was found minimally responsive at home, in her trailer, by her sister, for uncertain duration of time and uncertain mechanism In the emergency room, the patient is altered, moving 4 extremities, hypoxic, and not protecting her airway. She is therefore emergently intubated I have been consulted for acute and chronic hypoxic-hypercapnic respiratory failure Patient is seen and examined. Vitals, labs, medications, chart and imaging reviewed. Orally intubated and sedated. History as documented- verbatim by ED physician. ROS: Stated complaint: COPD Other details as noted in HPI Comment: Unobtainable due to patients mental status - Past Medical History Previous Medical History?: Yes Hx Hypertension: Yes Hx Heart Attack/AMI: Yes Hx Congestive Heart Failure: Yes Hx Diabetes: No Hx Deep Vein Thrombosis: No Hx GERD: Yes Hx Liver Disease: Yes Hx Psychiatric Treatment: Yes (depression and anxiety) Hx Asthma: No Hx COPD: Yes Hx HIV: No - Surgical History Past Surgical History?: Yes Hx Coronary Stent: Yes Hx Pacemaker: No Hx Internal Defibrillator: No Hx Appendectomy: Yes Additional Surgical History: heart stents, Back surgery - Social History Smoking Status: Current Every Day Smoker Substance Use Type: None Medications and Allergies Allergies Allergy/AdvReac Type Severity Reaction Status Date / Time hydromorphone [From Dilaudid] Allergy Unknown Verified 09/28/18 21:25 phenobarbital Allergy Unknown Verified 09/28/18 21:25 Home Medications Medication Instructions Recorded Confirmed Last Taken Type Albuterol Sulfate [Proair 90 mcg IH Q4H PRN #1 pump 09/21/18 06/12/19 Unknown Rx Respiclick] Metoprolol [Lopressor TAB] 12.5 mg PO BID #60 tablet 11/27/18 06/12/19 06/09/19 Rx Nicotine [Habitrol] 14 mg TD QDAY #30 patch 11/27/18 06/12/19 Unknown Rx ALBUTEROL NEB's [Proventil 0.083% 2.5 mg IH Q4HRT PRN #15 nebu 03/05/19 06/12/19 Unknown Rx NEBS] ALPRAZolam [Xanax TAB] 0.25 mg PO Q8H PRN #15 tablet 03/05/19 06/12/19 Unknown Rx Acetaminophen [Acetaminophen TAB] 650 mg PO Q4H PRN tablet 03/05/19 06/12/19 Unknown Rx Arformoterol Nebu [Brovana Nebu] 15 mcg IH Q12HRT #30 ml 03/05/19 06/12/19 Unknown Rx Baclofen [Lioresal] 10 mg PO BID tablet 03/05/19 06/12/19 Unknown Rx Budesonide [Pulmicort Respules] 0.5 mg IH Q12HRT #30 nebu 03/05/19 06/12/19 Unknown Rx HYDROcodone/APAP 5-325 [Red [place] 1 each PO BID PRN #15 tablet 03/05/19 06/12/19 06/09/19 Rx 5-325 mg TAB] Lansoprazole Solutab [Prevacid 30 mg FEEDTUBE QDAY #30 tab.rapdis 03/05/19 06/12/19 Unknown Rx Solutab] Nitroglycerin [Nitrostat] 0.4 mg SL Q5M PRN #30 tab 03/05/19 06/12/19 Unknown Rx Potassium Chloride [K-Dur] 10 meq PO QDAY #30 tablet 03/05/19 06/12/19 Unknown Rx QUEtiapine [SEROquel] 300 mg PO BID tablet 03/05/19 06/12/19 06/09/19 Rx Venlafaxine [Effexor 25mg tab] 25 mg PO TID #90 tablet 03/05/19 06/12/19 06/09/19 Rx Venlafaxine [Effexor] 75 mg PO TID #90 tablet 03/05/19 06/12/19 06/02/19 Rx busPIRone [Buspar] 5 mg PO BID #60 tablet 03/05/19 06/12/19 06/09/19 Rx predniSONE [Deltasone] 40 mg PO QDAY #30 tablet 03/05/19 06/12/19 Unknown Rx Lisinopril [Zestril] 10 mg PO DAILY 06/10/19 06/12/19 Unknown History amLODIPine 5 mg PO DAILY 06/10/19 06/12/19 04/12/19 History Active Meds: Active Medications Acetaminophen (Tylenol) 650 mg PO Q4H PRN PRN Reason: Pain MILD(1-3)/Fever >100.5/PRAJAPATI Albuterol/Ipratropium (Duoneb *Not For Prn Use*) 1 ampul IH QIDRT DOMINICK Last Admin: 06/12/19 09:34 Dose: 1 ampul Documented by: Dextrose (D50w (25gm) Syringe) 50 ml IV Q30MIN PRN; Protocol PRN Reason: Hypoglycemia Fentanyl (Sublimaze) 50 mcg IV Q10MIN PRN PRN Reason: ANALGESIA Last Admin: 06/11/19 20:52 Dose: 50 mcg Documented by: Hydrophilic Ointment (Vaseline Lip Therapy) 1 applic TP Q2HR PRN PRN Reason: Dry Lips Fentanyl Citrate (Fentanyl Drip Premix) 2,000 mcg in 100 mls @ 3.742 mls/hr IV TITR DOMINICK; Protocol Last Admin: 06/12/19 08:36 Dose: 1 mcg/kg/hr, 3.742 mls/hr Documented by: Lorazepam 100 mg/ Sodium Chloride/ Miscellaneous Information 100 mls @ 1 mls/hr IV TITR DOMINICK; Protocol Last Admin: 06/11/19 20:50 Dose: 1 mg/hr, 1 mls/hr Documented by: Sodium Chloride (Nacl 0.9% 1000 Ml) 1,000 mls @ 75 mls/hr IV DIRECT DOMINICK Last Admin: 06/12/19 00:26 Dose: 75 mls/hr Documented by: Insulin Human Lispro (Humalog) 0 unit SUB-Q Q6HR DOMINICK; Protocol Last Admin: 06/12/19 06:37 Dose: Not Given Documented by: Lorazepam (Ativan) 2 mg IV Q10MIN PRN PRN Reason: Agitation Last Admin: 06/11/19 20:48 Dose: 2 mg Documented by: Methylprednisolone Sodium Succinate (Solu-Medrol) 125 mg IV Q6HR [facility] Last Admin: 06/12/19 07:06 Dose: 125 mg Documented by: Multi-Ingred Cream/Lotion/Oil/Oint (Artificial Tears Ophth Oint) 1 applic OU Q4HR PRN PRN Reason: Dry Eye(s) Ondansetron HCl (Zofran) 4 mg IV Q8H PRN PRN Reason: Nausea And Vomiting Sodium Chloride (Sodium Chloride Flush Syringe 10 Ml) 10 ml IV BID [facility] Last Admin: 06/12/19 10:48 Dose: 10 ml Documented by: Sodium Chloride (Sodium Chloride Flush Syringe 10 Ml) 10 ml IV PRN PRN PRN Reason: LINE FLUSH Review of Systems ROS unobtainable: due to endotracheal tube, due to mental status Physical Examination Vital signs: Vital Signs Resp Pulse Ox 22 77 L 06/11/19 17:35 06/11/19 17:35 General appearance: Present: no acute distress, well-nourished, obese, other (Intubated on ventilatory support sedated) No patient-ventilator dys-synchrony Sedated - EENT Eyes: Present: PERRL, EOM intact - Neck Neck: Present: supple, normal ROM, other (ET tube and NGT in place) ETT at 22cm at the lip - Respiratory Respiratory effort: normal Respiratory: bilateral: diminished, rhonchi, negative: rales, wheezing - Cardiovascular Rhythm: regular Heart Sounds: Present: S1 & S2 - Extremities Extremities: no cyanosis, no clubbing, Extremity abnormal: edema - Abdominal General gastrointestinal: soft, non-tender, non-distended, normal bowel sounds - Integumentary Integumentary: Present: clear, warm - Psychiatric Psychiatric: unable to assess other (Intubated on vent) - Neurologic Neurologic: other (Intubated on vent) Results - Laboratory Findings CBC and BMP: 06/13/19 04:54 06/14/19 04:55 ABG ABG pH 7.313 pH Units (7.350-7.450) L 06/12/19 04:20 ABG pCO2 60.3 mm Hg 06/12/19 04:20 ABG pO2 75.3 mm Hg (80.0-90.0) L 06/12/19 04:20 ABG O2 Saturation 94.3 % (95.0-99.0) L 06/12/19 04:20 PT/INR, D-dimer PT 13.0 Sec. (12.2-14.9) 06/11/19 18:03 INR 0.97 (0.87-1.13) 06/11/19 18:03 Abnormal lab findings: Abnormal Labs 06/11/19 06/11/19 06/11/19 18:03 18:03 18:03 MCH 25 L RDW 19.4 H Plt Count 124 L [place] % (Auto) 10.3 H Lymph # 1.1 L Seg Neutrophils % 74.4 H Seg Neuts % (Manual) Lymphocytes % (Manual) Lymphocytes # (Manual) ABG pH ABG pO2 ABG HCO3 ABG O2 Saturation ABG Base Excess ABG Hemoglobin Oxyhemoglobin Sodium 146 H Chloride BUN 21 H Creatinine 0.4 L Glucose POC Glucose Calcium Magnesium 2.70 H CK-MB (CK-2) CK-MB (CK-2) Rel Index Albumin 3.5 L Urine WBC (Auto) Salicylates 1.0 L Acetaminophen 06/11/19 06/11/19 06/11/19 18:03 18:59 23:22 MCH RDW Plt Count [place] % (Auto) Lymph # Seg Neutrophils % Seg Neuts % (Manual) Lymphocytes % (Manual) Lymphocytes # (Manual) ABG pH 7.340 L ABG pO2 76.0 L ABG HCO3 34.6 H ABG O2 Saturation ABG Base Excess 7.1 H ABG Hemoglobin 10.9 L Oxyhemoglobin 91.6 L Sodium Chloride BUN Creatinine Glucose POC Glucose Calcium Magnesium CK-MB (CK-2) 5.5 H CK-MB (CK-2) Rel Index 5.5 H Albumin Urine WBC (Auto) Salicylates Acetaminophen < 5.0 L 06/12/19 06/12/19 06/12/19 00:29 02:04 04:20 MCH RDW Plt Count [place] % (Auto) Lymph # Seg Neutrophils % Seg Neuts % (Manual) Lymphocytes % (Manual) Lymphocytes # (Manual) ABG pH 7.313 L ABG pO2 75.3 L ABG HCO3 29.9 H ABG O2 Saturation 94.3 L ABG Base Excess ABG Hemoglobin 10.8 L Oxyhemoglobin 92.0 L Sodium Chloride BUN Creatinine Glucose POC Glucose 107 H Calcium Magnesium CK-MB (CK-2) CK-MB (CK-2) Rel Index Albumin Urine WBC (Auto) 30.0 H Salicylates Acetaminophen 06/12/19 06/12/19 06/12/19 05:09 05:09 05:09 MCH 25 L RDW 19.4 H Plt Count 114 L [place] % (Auto) Lymph # Seg Neutrophils % Seg Neuts % (Manual) 91.0 H Lymphocytes % (Manual) 7.0 L Lymphocytes # (Manual) 0.4 L ABG pH ABG pO2 ABG HCO3 ABG O2 Saturation ABG Base Excess ABG Hemoglobin Oxyhemoglobin Sodium 147 H Chloride 107.4 H BUN 19 H Creatinine 0.4 L Glucose 110 H POC Glucose Calcium 8.2 L Magnesium CK-MB (CK-2) CK-MB (CK-2) Rel Index 5.4 H Albumin Urine WBC (Auto) Salicylates Acetaminophen 06/12/19 06:42 MCH RDW Plt Count [place] % (Auto) Lymph # Seg Neutrophils % Seg Neuts % (Manual) Lymphocytes % (Manual) Lymphocytes # (Manual) ABG pH ABG pO2 ABG HCO3 ABG O2 Saturation ABG Base Excess ABG Hemoglobin Oxyhemoglobin Sodium Chloride BUN Creatinine Glucose POC Glucose 108 H Calcium Magnesium CK-MB (CK-2) CK-MB (CK-2) Rel Index Albumin Urine WBC (Auto) Salicylates Acetaminophen - Diagnostic Findings Chest x-ray: image reviewed (Left lower lobe infiltrate) CT scan - chest: image reviewed (Left lower lobe infiltrate and posterior rib fractures) Assessment and Plan Acute and chronic hypoxic and hypercapnic respiratory failure on MVS Acute exacerbation of COPD Thrombocytopenia History of coronary artery disease/CHF History of depression; Obesity; BMI 32.2 Chronic narcotic dependence -Continue with MVS, Lung protective strategies, monitor airway pressures -Adjust minute ventilation as indicated for better gas exchange -VAP bundle addressed -Aspiration precautions, HOB>40 -Daily assessment for readiness for weaning; SAT and SBT - Fentanyl and Lorazepam infusions titrate to RASS -1 -Antibiotics for severe AE-COPD -Steroids with slow taper -Bronchodilators with pulmonary hygiene -Stress ulcer prophylaxis, VTE prophylaxis -Initiate enteric nutritional support, once OGT placement is confirmed. -Monitor glycemic control, with target blood glucose 140-180 mg/dL while critically ill. -Avoid hypoglycemia -RD consult placed - Wean supplemental oxygen for target O2 sat's > 90% -ABG and CXR in am -Follow cultures and adjust antibiotic therapy for VITO and culture results - Avoid benzodiazepines to reduce the possibility of delirium - prn analgesia per CPOT score - Mobility protocol , off loading and skin assessment per protocol for pressure ulcer prevention - Monitor hemodynamics closely -Nicotine withdrawal precautions -Smoking cessation counselling once she is extubated and able to participate in the discussion -Chronic home medications as indicated - continue other care per attending / other consultants CONDITION: CRITICAL PROGNOSIS: GUARDED CODE STATUS: FULL CODE Life threatening condition from acute and chronic hypoxic-hypercapnic respiratory failure with ventilator dependency Mortality/Morbidity- High Complexity of decision making- High The high probability of a clinically significant, sudden or life-threatening deterioration of the [respiratory, ] system(s) required my full and direct attention, intervention and personal management. The aggregate critical care time was [35] minutes without overlap. Time includes spent on; [x] Data Review and interpretation [x] Patient assessment and monitoring of vital signs [x] Documentation [x] Medication orders and management
[2019-06-13] MEDS: INSULIN LISPRO 100 UNIT/ML SUB-Q SCH ×4 (00:03→18:03)
[2019-06-13] MEDS: fentaNYL DRIP Premix 2,000 MCG/100 ML BAG IV SCH ×5 (01:07→23:32)
[2019-06-13] MEDS: LORazepam 2 MG/ML VIAL IV PRN ×4 (01:33→12:03)
[2019-06-13] MEDS ORDERED: METOPROLOL TARTRATE 5 MG/5 ML INJ IV ONE ×5 (01:35→16:37)
[2019-06-13 04:59] LABS: ABG Base Excess 2.9 mmol/L (-2.0-3.0); ABG HCO3 29.6 mmol/L (20.0-26.0); ABG PCO2 53.6 mm Hg; ABG PH 7.36 pH Units (7.350-7.450); ABG PO2 62.6 mm Hg (80.0-90.0)
[2019-06-13 05:15] LABS: ABG Methemoglobin 0.4 % (0.0-1.5)
[2019-06-13 05:18] LABS: Mean Corpuscular HGB Conc 30 % (30-34); Mean Corpuscular Volume 84 fl (79-97); Platelet Count 119 K/mm3 (140-440); Red Blood Count 4.23 M/mm3 (3.65-5.03); Red Cell Distribution Width 19.2 % (13.2-15.2)
[2019-06-13 05:30] LABS: Hematocrit 35.4 % (30.3-42.9); Hemoglobin 10.5 gm/dl (10.1-14.3)
[2019-06-13 05:35] LABS: BUN/Creatinine Ratio 52; Blood Urea Nitrogen 26 mg/dL (7-17); Calcium 8.9 mg/dL (8.4-10.2); Hemolysis Index 9
[2019-06-13 06:15] LABS: Basophils % (Manual) 0 % (0.0-1.8); Eosinophils % (Manual) 0 % (0.0-4.3); Total Cells Counted 100
[2019-06-13 06:16] LABS: Hypochromasia Few; Ovalocytes Rare; Platelet Estimate Consistent w Auto; Spherocytes Rare
[2019-06-13] MEDS: methylPREDNISolone Sod Succinate 125 MG/2 ML INJ IV SCH ×4 (06:21→23:30)
--- NOTE | 2019-06-13 07:20 | XRay Report ---
CHEST 1 VIEW 0619 INDICATION / CLINICAL INFORMATION: follow up respiratory failure. COMPARISON: 06/12/2019 FINDINGS: SUPPORT DEVICES: Due to the rotation on this image and overlap with spinal hardware, I cannot clearly determine the endotracheal tube position on this study. Nasogastric tube continues to extend below t he diaphragm. HEART / MEDIASTINUM: Stable LUNGS / PLEURA: Patient is strongly rotated and the patient's chin obscures the left apex. Congestion appears improved. Basilar atelectatic changes continue. Focal density in the left base is not signif icantly changed. No pneumothorax. ADDITIONAL FINDINGS: No significant additional findings. IMPRESSION: 1. Mild improvement in congestion 2. Endotracheal tube position cannot be determined due to rotation and obscuration by spinal hardware Signer Name: Alex Shay MD Signed: 06/13/2019 7:16 AM Workstation Name: [id number]
--- NOTE | 2019-06-13 08:56 | Progress Note ---
Assessment and Plan Assessment and plan: --Episode of SVT last night; This morning patient is in sinus rhythm heart rate in 90s Continue beta-blockers, consult cardiology --Follow-up chest x-ray; mild improvement in congestion ET tube position could not be determined due to rotation --Acute hypoxic and hypercapnic respiratory failure: Requiring intubation and ventilatory support Nebulizers, IV steroids, IV antibiotics inhalation steroids Pulmonary critical following, supportive care Wean as tolerated and extubate --Acute exacerbation of COPD : Nebulizers, tapering doses steroids --History of coronary artery disease/CHF Low-dose Lasix, continue other cardiac meds --History of depression; Resume antidepressive medications --Ongoing tobacco use; 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 The aggregate critical care time was [35] minutes. This time is in addition to time spent performing reported procedures but includes the following: [x] Data Review and interpretation [x] Patient assessment and monitoring of vital signs [x] Documentation [x] Medication orders and management Critical care time 40 minutes History Interval history: Patient seen and examined at the bedside in ICU this morning Patient's chart, medications, overnight events reviewed Patient had an episode of SVT, treated with IV metoprolol back to sinus rhythm Patient is intubated on ventilatory support Patient's heart rate is in 90s this morning Vital signs noted Hospitalist Physical - Constitutional Vitals: Temp Pulse Resp BP Pulse Ox 98.5 F 101 H 18 106/52 96 06/13/19 03:41 06/13/19 06:31 06/13/19 06:31 06/13/19 06:31 06/13/19 06:31 General appearance: Present: no acute distress, well-nourished, obese, other (Intubated on ventilatory support sedated) - EENT Eyes: Present: PERRL. Absent: scleral icterus - Neck Neck: Present: supple, normal ROM, other (ET tube and Dobbhoff in place) - Respiratory Respiratory effort: normal Respiratory: bilateral: diminished, rhonchi, negative: rales, wheezing - Cardiovascular Rhythm: regular Heart Sounds: Present: S1 & S2 - Extremities Extremities: no ischemia, No edema - Abdominal General gastrointestinal: soft, non-tender, non-distended, normal bowel sounds - Integumentary Integumentary: Present: clear, warm - Psychiatric Psychiatric: other (Intubated on vent) - Neurologic Neurologic: other (Intubated on vent) Results - Labs CBC & Chem 7: 06/13/19 04:54 06/13/19 04:54 Labs: Laboratory Last Values WBC 9.6 K/mm3 (4.5-11.0) 06/13/19 04:54 RBC 4.23 M/mm3 (3.65-5.03) 06/13/19 04:54 Hgb 10.5 gm/dl (10.1-14.3) 06/13/19 04:54 Hct 35.4 % (30.3-42.9) 06/13/19 04:54 MCV 84 fl (79-97) 06/13/19 04:54 MCH 25 pg (28-32) L 06/13/19 04:54 MCHC 30 % (30-34) 06/13/19 04:54 RDW 19.2 % (13.2-15.2) H 06/13/19 04:54 Plt Count 119 K/mm3 (140-440) L 06/13/19 04:54 Lymph % (Auto) 13.7 % (13.4-35.0) 06/11/19 18:03 Carter % (Auto) 10.3 % (0.0-7.3) H 06/11/19 18:03 Eos % (Auto) 0.8 % (0.0-4.3) 06/11/19 18:03 Baso % (Auto) 0.8 % (0.0-1.8) 06/11/19 18:03 Lymph # 1.1 K/mm3 (1.2-5.4) L 06/11/19 18:03 Carter # 0.8 K/mm3 (0.0-0.8) 06/11/19 18:03 Eos # 0.1 K/mm3 (0.0-0.4) 06/11/19 18:03 Baso # 0.1 K/mm3 (0.0-0.1) 06/11/19 18:03 Add Manual Diff Complete 06/13/19 04:54 Total Counted 100 06/13/19 04:54 Seg Neutrophils % Car Greaser 06/13/19 04:54 Seg Neuts % (Manual) 95.0 % (40.0-70.0) H 06/13/19 04:54 Band Neutrophils % 0 % 06/13/19 04:54 Lymphocytes % (Manual) 2.0 % (13.4-35.0) L 06/13/19 04:54 Reactive Lymphs % (Man) 0 % 06/13/19 04:54 Monocytes % (Manual) 3.0 % (0.0-7.3) 06/13/19 04:54 Eosinophils % (Manual) 0 % (0.0-4.3) 06/13/19 04:54 Basophils % (Manual) 0 % (0.0-1.8) 06/13/19 04:54 Metamyelocytes % 0 % 06/13/19 04:54 Myelocytes % 0 % 06/13/19 04:54 Promyelocytes % 0 % 06/13/19 04:54 Blast Cells % 0 % 06/13/19 04:54 Nucleated RBC % Not Reportable 06/13/19 04:54 Seg Neutrophils # 6.0 K/mm3 (1.8-7.7) 06/11/19 18:03 Seg Neutrophils # Man 9.1 K/mm3 (1.8-7.7) H 06/13/19 04:54 Band Neutrophils # 0.0 K/mm3 06/13/19 04:54 Lymphocytes # (Manual) 0.2 K/mm3 (1.2-5.4) L 06/13/19 04:54 Abs React Lymphs (Man) 0.0 K/mm3 06/13/19 04:54 Monocytes # (Manual) 0.3 K/mm3 (0.0-0.8) 06/13/19 04:54 Eosinophils # (Manual) 0.0 K/mm3 (0.0-0.4) 06/13/19 04:54 Basophils # (Manual) 0.0 K/mm3 (0.0-0.1) 06/13/19 04:54 Metamyelocytes # 0.0 K/mm3 06/13/19 04:54 Myelocytes # 0.0 K/mm3 06/13/19 04:54 Promyelocytes # 0.0 K/mm3 06/13/19 04:54 Blast Cells # 0.0 K/mm3 06/13/19 04:54 WBC Morphology Not Reportable 06/13/19 04:54 Hypersegmented Neuts Not Reportable 06/13/19 04:54 Hyposegmented Neuts Not Reportable 06/13/19 04:54 Hypogranular Neuts Not Reportable 06/13/19 04:54 Smudge Cells Not Reportable 06/13/19 04:54 Toxic Granulation Not Reportable 06/13/19 04:54 Toxic Vacuolation Not Reportable 06/13/19 04:54 Dohle Bodies Not Reportable 06/13/19 04:54 Pelger-Huet Anomaly Not Reportable 06/13/19 04:54 Neha Rods Not Reportable 06/13/19 04:54 Platelet Estimate Consistent w auto 06/13/19 04:54 Clumped Platelets Not Reportable 06/13/19 04:54 Plt Clumps, EDTA Not Reportable 06/13/19 04:54 Large Platelets Not Reportable 06/13/19 04:54 Giant Platelets Not Reportable 06/13/19 04:54 Platelet Satelliting Not Reportable 06/13/19 04:54 Plt Morphology Comment Not Reportable 06/13/19 04:54 RBC Morphology Not Reportable 06/13/19 04:54 Dimorphic RBCs Not Reportable 06/13/19 04:54 Polychromasia Not Reportable 06/13/19 04:54 Hypochromasia Few 06/13/19 04:54 Poikilocytosis Not Reportable 06/13/19 04:54 Anisocytosis Not Reportable 06/13/19 04:54 Microcytosis Not Reportable 06/13/19 04:54 Macrocytosis Not Reportable 06/13/19 04:54 Spherocytes Rare 06/13/19 04:54 Pappenheimer Bodies Not Reportable 06/13/19 04:54 Sickle Cells Not Reportable 06/13/19 04:54 Target Cells Not Reportable 06/13/19 04:54 Tear Drop Cells Not Reportable 06/13/19 04:54 Ovalocytes Rare 06/13/19 04:54 Helmet Cells Not Reportable 06/13/19 04:54 Benoit-Ducor Bodies Not Reportable 06/13/19 04:54 Girard Rings Not Reportable 06/13/19 04:54 [place] Cells Not Reportable 06/13/19 04:54 Bite Cells Not Reportable 06/13/19 04:54 Crenated Cell Not Reportable 06/13/19 04:54 Elliptocytes Not Reportable 06/13/19 04:54 Acanthocytes (Spur) Not Reportable 06/13/19 04:54 Rouleaux Not Reportable 06/13/19 04:54 Hemoglobin C Crystals Not Reportable 06/13/19 04:54 Schistocytes Not Reportable 06/13/19 04:54 Malaria parasites Not Reportable 06/13/19 04:54 Hernan Bodies Not Reportable 06/13/19 04:54 Hem Pathologist Commnt No 06/13/19 04:54 PT 13.0 Sec. (12.2-14.9) 06/11/19 18:03 INR 0.97 (0.87-1.13) 06/11/19 18:03 ABG pH 7.360 pH Units (7.350-7.450) 06/13/19 04:14 ABG pCO2 53.6 mm Hg 06/13/19 04:14 ABG pO2 62.6 mm Hg (80.0-90.0) L 06/13/19 04:14 ABG HCO3 29.6 mmol/L (20.0-26.0) H 06/13/19 04:14 ABG O2 Saturation 91.0 % (95.0-99.0) L 06/13/19 04:14 ABG O2 Content 19.1 (0.0-44) 06/13/19 04:14 ABG Base Excess 2.9 mmol/L (-2.0-3.0) 06/13/19 04:14 ABG Hemoglobin 10.3 gm/dl (12.0-16.0) L 06/13/19 04:14 ABG Carboxyhemoglobin 1.8 % (0.0-5.0) 06/13/19 04:14 ABG Methemoglobin 0.4 % (0.0-1.5) 06/13/19 04:14 Oxyhemoglobin 89.0 % (95.0-99.0) L 06/13/19 04:14 FiO2 40 % 06/13/19 04:14 Sodium 149 mmol/L (137-145) H 06/13/19 04:54 Potassium 4.5 mmol/L (3.6-5.0) 06/13/19 04:54 Chloride 111.4 mmol/L (98-107) H 06/13/19 04:54 Carbon Dioxide 25 mmol/L (22-30) 06/13/19 04:54 Anion Gap 17 mmol/L 06/13/19 04:54 BUN 26 mg/dL (7-17) H 06/13/19 04:54 Creatinine 0.5 mg/dL (0.7-1.2) L 06/13/19 04:54 Estimated GFR > 60 ml/min 06/13/19 04:54 BUN/Creatinine Ratio 52 % 06/13/19 04:54 Glucose 107 mg/dL (65-100) H 06/13/19 04:54 POC Glucose 104 (70-105) 06/13/19 06:00 Calcium 8.9 mg/dL (8.4-10.2) 06/13/19 04:54 Phosphorus 3.40 mg/dL (2.5-4.5) 06/13/19 04:54 Magnesium 2.10 mg/dL (1.7-2.3) 06/13/19 04:54 Total Bilirubin 0.30 mg/dL (0.1-1.2) 06/11/19 18:03 AST 14 units/L (5-40) 06/11/19 18:03 ALT 8 units/L (7-56) 06/11/19 18:03 Alkaline Phosphatase 85 units/L (35-129) 06/11/19 18:03 Total Creatine Kinase 74 units/L (30-135) 06/12/19 05:09 CK-MB (CK-2) 4.0 ng/mL (0.0-4.0) 06/12/19 05:09 CK-MB (CK-2) Rel Index 5.4 (0-4) H 06/12/19 05:09 Troponin T < 0.010 ng/mL (0.00-0.029) 06/12/19 05:09 Total Protein 6.4 g/dL (6.3-8.2) 06/11/19 18:03 Albumin 3.5 g/dL (3.9-5) L 06/11/19 18:03 Albumin/Globulin Ratio 1.2 % 06/11/19 18:03 Urine Color Yellow (Yellow) 06/12/19 02:04 Urine Turbidity Clear (Clear) 06/12/19 02:04 Urine pH 5.0 (5.0-7.0) 06/12/19 02:04 Ur Specific [place] 1.027 (1.003-1.030) 06/12/19 02:04 Urine Protein 30 mg/dl mg/dL (Negative) 06/12/19 02:04 Urine Glucose (UA) Neg mg/dL (Negative) 06/12/19 02:04 Urine Ketones 80 mg/dL (Negative) 06/12/19 02:04 Urine Blood Lg (Negative) 06/12/19 02:04 Urine Nitrite Neg (Negative) 06/12/19 02:04 Urine Bilirubin Neg (Negative) 06/12/19 02:04 Urine Urobilinogen 2.0 mg/dL (<2.0) 06/12/19 02:04 Ur Leukocyte Esterase Neg (Negative) 06/12/19 02:04 Urine WBC (Auto) 30.0 /HPF (0.0-6.0) H 06/12/19 02:04 Urine RBC (Auto) > 182.0 /HPF (0.0-6.0) 06/12/19 02:04 Urine Bacteria (Auto) 1+ /HPF (Negative) 06/12/19 02:04 Urine Mucus 3+ /HPF 06/12/19 02:04 Urine Yeast (Budding) Few /HPF 06/12/19 02:04 Salicylates 1.0 mg/dL (2.8-20.0) L 06/11/19 18:03 Acetaminophen < 5.0 ug/mL (10.0-30.0) L 06/11/19 18:03 Microbiology: Microbiology 06/11/19 19:19 Peripheral/Venous Blood Culture - Preliminary NO GROWTH AFTER 24 HOURS 06/11/19 19:16 Peripheral/Venous Blood Culture - Preliminary NO GROWTH AFTER 24 HOURS 06/11/19 20:50 Tracheal Aspirate Sputum Culture - Preliminary Gram Negative Ras Harley/IV: Voiding Method Indwelling Catheter IV Catheter Type [Right Wrist] Peripheral IV IV Catheter Type [Right Hand] Peripheral IV Active Medications - Current Medications Current Medications: Generic Name Dose Route Start Last Admin Trade Name Freq PRN Reason Stop Dose Admin Acetaminophen 650 mg 06/11/19 22:48 Tylenol PO Q4H PRN Pain MILD(1-3)/Fever >100.5/PRAJAPATI Albuterol/Ipratropium 1 ampul 06/12/19 08:00 06/12/19 20:16 Duoneb *Not For Prn Use* IH 1 ampul QIDRT DOMINICK Administration Dextrose 50 ml 06/11/19 22:48 D50w (25gm) Syringe IV Q30MIN PRN Hypoglycemia Protocol Fentanyl 50 mcg 06/11/19 17:45 06/11/19 20:52 Sublimaze IV 50 mcg Q10MIN PRN Administration ANALGESIA Hydrophilic Ointment 1 applic 06/11/19 17:44 Vaseline Lip Therapy TP Q2HR PRN Dry Lips Fentanyl Citrate 2,000 mcg in 100 mls @ 3.742 mls/hr 06/11/19 18:00 06/13/19 06:20 Fentanyl Drip Premix IV 4 mcg/kg/hr TITR DOMINICK 14.969 mls/hr Administration Protocol 1 MCG/KG/HR Lorazepam 100 mg/ Sodium 100 mls @ 1 mls/hr 06/11/19 18:00 06/12/19 15:32 Chloride/ Miscellaneous IV 0 mg/hr Information TITR DOMINICK 0 mls/hr Titration Protocol 1 MG/HR Sodium Chloride 1,000 mls @ 75 mls/hr 06/11/19 23:00 06/12/19 20:35 Nacl 0.9% 1000 Ml IV 75 mls/hr DIRECT DOMINICK Administration Insulin Human Lispro 0 unit 06/12/19 00:00 06/13/19 06:56 Humalog SUB-Q Not Given Q6HR DOMINICK Protocol Lorazepam 2 mg 06/11/19 17:45 06/13/19 06:21 Ativan IV 2 mg Q10MIN PRN Administration Agitation Methylprednisolone Sodium Succinate 125 mg 06/12/19 00:00 06/13/19 06:21 Solu-Medrol IV 125 mg Q6HR DOMINICK Administration Multi-Ingred Cream/Lotion/Oil/Oint 1 applic 06/11/19 17:44 Artificial Tears Ophth Oint OU Q4HR PRN Dry Eye(s) Ondansetron HCl 4 mg 06/11/19 22:48 Zofran IV Q8H PRN Nausea And Vomiting Sodium Chloride 10 ml 06/12/19 10:00 06/12/19 23:41 Sodium Chloride Flush Syringe 10 Ml IV 10 ml BID DOMINICK Administration Sodium Chloride 10 ml 06/11/19 22:48 Sodium Chloride Flush Syringe 10 Ml IV PRN PRN LINE FLUSH Nutrition/Malnutrition Assess - Dietary Evaluation Nutrition/Malnutrition Findings: Nutrition Notes Start: 06/12/19 11:05 Freq: Status: Active Protocol: Document 06/12/19 11:05 GIANFRANCO (Rec: 06/12/19 11:14 GIANFRANCO [id number]) Nutrition Notes Need for Assessment generated from: MD Order Initial or Follow up Assessment Current Diagnosis COPD,Coronary Artery Disease, Hypertension,Heart Failure, Respiratory Failure Other Pertinent Diagnosis COPD exacerbation Current Diet No diet ordered Labs/Tests Na 147 BUN 19 Pertinent Medications Ativan gtt, Solumedrol, NS at 75ml/hr Height 5 ft Weight 74.843 kg [place] Body Weight (kg) 45.45 BMI 32.2 Weight Status Obese Subjective/Other Information RD consulted to evaluate nutritional intake. Pt currently intubated and on vent support. No NTR support consult received from MD yet. Burn Absent Trauma Absent Minimum of two criteria No #1 Nutrition Diagnosis Inadequate oral intake Etiology mech ventilation As Evidenced by Signs and Symptoms pt NPO Is patient on ventilator? Yes Is Patient Ambulatory and/or Out of Bed No REE-([facility]-confined to bed) 1486.872 Calculation Used for Recommendations [facility] Additional Notes Pro needs 2g/kg IBW: 91g/day 1ml/kcal Nutrition Intervention Change Diet Order: Advance diet when medically feasible Nutrition Support: If unable to advance diet within next 24 hrs, recommend Promote at 60ml/hr with 50ml water flush q4h. Goal #1 Either advance diet or start EN support within next 24 hrs Anticipated Discharge Needs: Unable to identify at this time Follow-Up By: 06/13/19 Additional Comments F/U: TF consult, vent status
[2019-06-13] MEDS: IPRATROPIUM/ALBUTEROL SULFATE 3 ML AMPUL.NEB IH SCH ×4 (10:07→20:47)
[2019-06-13] MEDS: LANSOPRAZOLE 30 MG SOLUTAB FEEDTUBE SCH (11:24)
[2019-06-13] MEDS: QUEtiapine 100 MG TAB PO SCH ×2 (11:24→22:05)
--- NOTE | 2019-06-13 11:50 | Consultation ---
History of Present Illness Consult date: 06/13/19 Consult reason: shortness of breath History of present illness: Impression Intubated for resp failure, sedated Severe COPD Trop negative Had run of SVT possible AVNRT when agitated Plan Now sinus tachycardia this AM BP stable. Start low dose cardizem 30 mg q12 and titrate thru feeding tube. Echo when feasible Supportive Care for advanced COPD. Past History Past Medical History: arrhythmia (SVT now resolved), CAD, COPD Social history: smoking Medications and Allergies Allergies Allergy/AdvReac Type Severity Reaction Status Date / Time hydromorphone [From Dilaudid] Allergy Unknown Verified 09/28/18 21:25 phenobarbital Allergy Unknown Verified 09/28/18 21:25 Home Medications Medication Instructions Recorded Confirmed Last Taken Type Albuterol Sulfate [Proair 90 mcg IH Q4H PRN #1 pump 09/21/18 06/12/19 Unknown Rx Respiclick] Metoprolol [Lopressor TAB] 12.5 mg PO BID #60 tablet 11/27/18 06/12/19 06/09/19 Rx Nicotine [Habitrol] 14 mg TD QDAY #30 patch 11/27/18 06/12/19 Unknown Rx ALBUTEROL NEB's [Proventil 0.083% 2.5 mg IH Q4HRT PRN #15 nebu 03/05/19 06/12/19 Unknown Rx NEBS] ALPRAZolam [Xanax TAB] 0.25 mg PO Q8H PRN #15 tablet 03/05/19 06/12/19 Unknown Rx Acetaminophen [Acetaminophen TAB] 650 mg PO Q4H PRN tablet 03/05/19 06/12/19 Unknown Rx Arformoterol Nebu [Brovana Nebu] 15 mcg IH Q12HRT #30 ml 03/05/19 06/12/19 Unkn own Rx Baclofen [Lioresal] 10 mg PO BID tablet 03/05/19 06/12/19 Unknown Rx Budesonide [Pulmicort Respules] 0.5 mg IH Q12HRT #30 nebu 03/05/19 06/12/19 Unknown Rx HYDROcodone/APAP 5-325 [[place] 1 each PO BID PRN #15 tablet 03/05/19 06/12/19 06/09/19 Rx 5-325 mg TAB] Lansoprazole Solutab [Prevacid 30 mg FEEDTUBE QDAY #30 tab.rapdis 03/05/19 06/12/19 Unknown Rx Solutab] Nitroglycerin [Nitrostat] 0.4 mg SL Q5M PRN #30 tab 03/05/19 06/12/19 Unknown Rx Potassium Chloride [K-Dur] 10 meq PO QDAY #30 tablet 03/05/19 06/12/19 Unknown Rx QUEtiapine [SEROquel] 300 mg PO BID tablet 03/05/19 06/12/19 06/09/19 Rx Venlafaxine [Effexor 25mg tab] 25 mg PO TID #90 tablet 03/05/19 06/12/19 06/09/19 Rx Venlafaxine [Effexor] 75 mg PO TID #90 tablet 03/05/19 06/12/19 06/02/19 Rx busPIRone [Buspar] 5 mg PO BID #60 tablet 03/05/19 06/12/19 06/09/19 Rx predniSONE [Deltasone] 40 mg PO QDAY #30 tablet 03/05/19 06/12/19 Unknown Rx Lisinopril [Zestril] 10 mg PO DAILY 06/10/19 06/12/19 Unknown History amLODIPine 5 mg PO DAILY 06/10/19 06/12/19 04/12/19 History Active Meds: Active Medications Acetaminophen (Tylenol) 650 mg PO Q4H PRN PRN Reason: Pain MILD(1-3)/Fever >100.5/PRAJAPATI Albuterol/Ipratropium (Duoneb *Not For Prn Use*) 1 ampul IH QIDRT DOMINICK Last Admin: 06/13/19 10:07 Dose: 1 ampul Documented by: Alprazolam (Xanax) 0.25 mg PO Q8H PRN PRN Reason: Anxiety Dextrose (D50w (25gm) Syringe) 50 ml IV Q30MIN PRN; Protocol PRN Reason: Hypoglycemia Diltiazem HCl (Cardizem) 30 mg PO Q12H DOMINICK Fentanyl (Sublimaze) 50 mcg IV Q10MIN PRN PRN Reason: ANALGESIA Last Admin: 06/11/19 20:52 Dose: 50 mcg Documented by: Hydrophilic Ointment (Vaseline Lip Therapy) 1 applic TP Q2HR PRN PRN Reason: Dry Lips Fentanyl Citrate (Fentanyl Drip Premix) 2,000 mcg in 100 mls @ 3.742 mls/hr IV TITR [facility]; Protocol Last Admin: 06/13/19 06:20 Dose: 4 mcg/kg/hr, 14.969 mls/hr Documented by: Lorazepam 100 mg/ Sodium Chloride/ Miscellaneous Information 100 mls @ 1 mls/hr IV TITR [facility]; Protocol Last Titration: 06/12/19 15:32 Dose: 0 mg/hr, 0 mls/hr Documented by: Sodium Chloride (Nacl 0.9% 1000 Ml) 1,000 mls @ 75 mls/hr IV DIRECT [facility] Last Admin: 06/12/19 20:35 Dose: 75 mls/hr Documented by: Insulin Human Lispro (Humalog) 0 unit SUB-Q Q6HR [facility]; Protocol Last Admin: 06/13/19 06:56 Dose: Not Given Documented by: Lansoprazole (Prevacid Solutab) 30 mg FEEDTUBE QDAY [facility] Last Admin: 06/13/19 11:24 Dose: 30 mg Documented by: Lisinopril (Zestril) 10 mg PO DAILY [facility] Lorazepam (Ativan) 2 mg IV Q10MIN PRN PRN Reason: Agitation Last Admin: 06/13/19 06:21 Dose: 2 mg Documented by: Methylprednisolone Sodium Succinate (Solu-Medrol) 125 mg IV Q6HR [facility] Last Admin: 06/13/19 06:21 Dose: 125 mg Documented by: Multi-Ingred Cream/Lotion/Oil/Oint (Artificial Tears Ophth Oint) 1 applic OU Q4HR PRN PRN Reason: Dry Eye(s) Ondansetron HCl (Zofran) 4 mg IV Q8H PRN PRN Reason: Nausea And Vomiting Quetiapine Fumarate (Seroquel) 300 mg PO BID [facility] Last Admin: 06/13/19 11:24 Dose: 300 mg Documented by: Sodium Chloride (Sodium Chloride Flush Syringe 10 Ml) 10 ml IV BID [facility] Last Admin: 06/13/19 11:25 Dose: 10 ml Documented by: Sodium Chloride (Sodium Chloride Flush Syringe 10 Ml) 10 ml IV PRN PRN PRN Reason: LINE FLUSH Venlafaxine HCl (Effexor) 75 mg PO TID [facility] Review of Systems ROS unobtainable: due to endotracheal tube (intubated and sedation) Physical Examination Vital Signs Resp Pulse Ox 22 77 L 06/11/19 17:35 06/11/19 17:35 General appearance: no acute distress HEENT: Positive: Other (intubated) Cardiac: Positive: Reg Rate and Rhythm, Tachycardia Lungs: Positive: clear to auscultation Abdomen: Positive: Soft. Negative: Pulsations/Bruits Extremities: Absent: edema Results 06/13/19 04:54 06/13/19 04:54 CBC 06/13/19 Range/Units 04:54 WBC 9.6 (4.5-11.0) K/mm3 RBC 4.23 (3.65-5.03) M/mm3 Hgb 10.5 (10.1-14.3) gm/dl Hct 35.4 (30.3-42.9) % Plt Count 119 L (140-440) K/mm3 Comprehensive Metabolic Panel 06/13/19 Range/Units 04:54 Sodium 149 H (137-145) mmol/L Potassium 4.5 (3.6-5.0) mmol/L Chloride 111.4 H (98-107) mmol/L Carbon Dioxide 25 (22-30) mmol/L BUN 26 H (7-17) mg/dL Creatinine 0.5 L (0.7-1.2) mg/dL Glucose 107 H (65-100) mg/dL Calcium 8.9 (8.4-10.2) mg/dL
--- NOTE | 2019-06-13 12:37 | XRay Report ---
ABDOMEN 06/13/2019 INDICATION / CLINICAL INFORMATION: OG tube placement confirmation. COMPARISON: None available. FINDINGS: The nasogastric tube is positioned within the stomach. Signer Name: Blair Mcarthur MD Signed: 06/13/2019 12:33 PM Workstation Name: [id number]
--- NOTE | 2019-06-13 13:18 | Progress Note ---
Assessment and Plan Acute and chronic hypoxic and hypercapnic respiratory failure on MVS Acute exacerbation of COPD Thrombocytopenia History of coronary artery disease/CHF History of depression; Obesity; BMI 32.2 Chronic narcotic dependence -Continue with MVS, Lung protective strategies, monitor airway pressures -Adjust minute ventilation as indicated for better gas exchange -VAP bundle addressed -Aspiration precautions, HOB>40 -Daily assessment for readiness for weaning; SAT and SBT - Fentanyl and Lorazepam infusions titrate to RASS -1 -Antibiotics for severe AE-COPD -Steroids with slow taper -Bronchodilators with pulmonary hygiene -Stress ulcer prophylaxis, VTE prophylaxis -Initiate enteric nutritional support, once OGT placement is confirmed. -Monitor glycemic control, with target blood glucose 140-180 mg/dL while critically ill. -Avoid hypoglycemia -RD consult placed - Wean supplemental oxygen for target O2 sat's > 90% -ABG and CXR in am -Follow cultures and adjust antibiotic therapy for VITO and culture results - Avoid benzodiazepines to reduce the possibility of delirium - prn analgesia per CPOT score - Mobility protocol , off loading and skin assessment per protocol for pressure ulcer prevention - Monitor hemodynamics closely -Nicotine withdrawal precautions -Smoking cessation counselling once she is extubated and able to participate in the discussion -Chronic home medications as indicated - continue other care per attending / other consultants CONDITION: CRITICAL PROGNOSIS: GUARDED CODE STATUS: FULL CODE Life threatening condition from acute and chronic hypoxic-hypercapnic respiratory failure with ventilator dependency Mortality/Morbidity- High Complexity of decision making- High The high probability of a clinically significant, sudden or life-threatening deterioration of the [respiratory, ] system(s) required my full and direct attention, intervention and personal management. The aggregate critical care time was [31] minutes without overlap. Time includes spent on; [x] Data Review and interpretation [x] Patient assessment and monitoring of vital signs [x] Documentation [x] Medication orders and management Subjective Date of service: 06/13/19 Interval history: Patient is seen today for: Ac and ch hypoxic hypercapnic resp failure; AE-COPD; Tobacco use disorder/Nicotine dependence; Hypernatremia; HTN (hypotensive at presentation 0; Chronic narcotic dependence ; Chronic back pain; Anxiety disorder Seen and examined at bedside; 24-hour events reviewed; nursing and respiratory care staff consulted; no adverse overnight events reported to me; laying in bed; AMS is persistent; remains hypoxemic on MVS; tachyarrthymias reported whenever sedation is weaned; Objective - Exam Narrative Exam: Vitals reviewed General appearance: Present: no acute distress, well-nourished, obese, other (Intubated on ventilatory support sedated) No patient-ventilator dys-synchrony Sedated - EENT Eyes: Present: PERRL, EOM intact - Neck Neck: Present: supple, normal ROM, other (ET tube and NGT in place) ETT at 22cm at the lip - Respiratory Respiratory effort: normal Respiratory: bilateral: diminished, rhonchi, negative: rales, wheezing - Cardiovascular Rhythm: regular Heart Sounds: Present: S1 & S2 - Extremities Extremities: no cyanosis, no clubbing, Extremity abnormal: edema - Abdominal General gastrointestinal: soft, non-tender, non-distended, normal bowel sounds - Integumentary Integumentary: Present: clear, warm - Psychiatric Psychiatric: unable to assess other (Intubated on vent) - Neurologic Neurologic: other (Intubated on vent) Vital Signs - 12hr 06/13/19 06/13/19 06/13/19 01:31 01:45 01:46 Temperature Pulse Rate 127 H 185 H 185 H Pulse Rate [ Bilateral] Pulse Rate [ From Monitor] Respiratory 17 16 Rate Respiratory Rate [Bilateral ] Blood Pressure 161/77 161/77 147/77 O2 Sat by Pulse 97 91 Oximetry 06/13/19 06/13/19 06/13/19 02:00 02:15 02:31 Temperature Pulse Rate 112 H 103 H 122 H Pulse Rate [ Bilateral] Pulse Rate [ From Monitor] Respiratory 20 21 16 Rate Respiratory Rate [Bilateral ] Blood Pressure 131/64 131/64 123/63 O2 Sat by Pulse 89 92 93 Oximetry 06/13/19 06/13/19 06/13/19 02:45 03:00 03:15 Temperature Pulse Rate 106 H 101 H 99 H Pulse Rate [ Bilateral] Pulse Rate [ From Monitor] Respiratory 19 20 16 Rate Respiratory Rate [Bilateral ] Blood Pressure 123/63 109/55 109/55 O2 Sat by Pulse 93 95 94 Oximetry 06/13/19 06/13/19 06/13/19 03:30 03:41 03:45 Temperature 98.5 F Pulse Rate 91 H 87 Pulse Rate [ Bilateral] Pulse Rate [ From Monitor] Respiratory 20 18 Rate Respiratory Rate [Bilateral ] Blood Pressure 109/56 107/56 O2 Sat by Pulse 96 97 Oximetry 0406/13/19 06/13/19 04:00 04:15 04:30 Temperature Pulse Rate 88 87 93 H Pulse Rate [ 90 Bilateral] Pulse Rate [ 88 From Monitor] Respiratory 20 14 20 Rate Respiratory 20 Rate [Bilateral ] Blood Pressure 115/55 118/62 103/54 O2 Sat by Pulse 96 96 96 Oximetry 06/13/19 06/13/19 06/13/19 04:45 05:00 05:15 Temperature Pulse Rate 89 92 H 96 H Pulse Rate [ Bilateral] Pulse Rate [ From Monitor] Respiratory 15 20 15 Rate Respiratory Rate [Bilateral ] Blood Pressure 108/55 113/57 113/57 O2 Sat by Pulse 95 95 96 Oximetry 06/13/19 06/13/19 06/13/19 05:30 05:45 06:00 Temperature Pulse Rate 92 H 91 H 94 H Pulse Rate [ Bilateral] Pulse Rate [ From Monitor] Respiratory 18 21 21 Rate Respiratory Rate [Bilateral ] Blood Pressure 119/61 119/61 115/62 O2 Sat by Pulse 96 96 96 Oximetry 06/13/19 06/13/19 06/13/19 06:15 06:31 06:45 Temperature Pulse Rate 152 H 101 H 94 H Pulse Rate [ Bilateral] Pulse Rate [ From Monitor] Respiratory 30 H 18 20 Rate Respiratory Rate [Bilateral ] Blood Pressure 115/62 106/52 110/56 O2 Sat by Pulse 64 L 96 95 Oximetry 06/13/19 06/13/19 06/13/19 07:00 07:15 07:30 Temperature Pulse Rate 91 H 90 96 H Pulse Rate [ Bilateral] Pulse Rate [ From Monitor] Respiratory 20 14 13 Rate Respiratory Rate [Bilateral ] Blood Pressure 108/57 116/59 116/63 O2 Sat by Pulse 97 97 98 Oximetry 06/13/19 06/13/19 06/13/19 07:45 08:00 08:15 Temperature 97.9 F Pulse Rate 89 90 88 Pulse Rate [ Bilateral] Pulse Rate [ From Monitor] Respiratory 16 12 14 Rate Respiratory Rate [Bilateral ] Blood Pressure 115/62 121/65 121/65 O2 Sat by Pulse 97 97 98 Oximetry 06/13/19 06/13/19 06/13/19 08:30 08:45 09:00 Temperature Pulse Rate 90 90 102 H Pulse Rate [ Bilateral] Pulse Rate [ From Monitor] Respiratory 12 14 19 Rate Respiratory Rate [Bilateral ] Blood Pressure 111/63 111/63 116/65 O2 Sat by Pulse 97 98 90 Oximetry 06/13/19 06/13/19 06/13/19 09:15 09:30 10:07 Temperature Pulse Rate 104 H 96 H Pulse Rate [ 96 H Bilateral] Pulse Rate [ From Monitor] Respiratory 20 20 Rate Respiratory 20 Rate [Bilateral ] Blood Pressure 116/65 121/63 O2 Sat by Pulse 93 93 Oximetry 06/13/19 06/13/19 12:00 12:21 Temperature 97.2 F L Pulse Rate 113 H Pulse Rate [ 113 H Bilateral] Pulse Rate [ From Monitor] Respiratory Rate Respiratory 20 Rate [Bilateral ] Blood Pressure 116/59 O2 Sat by Pulse 94 Oximetry CBC and BMP: 06/16/19 05:45 06/17/19 04:57 ABG, PT/INR, D-dimer: ABG ABG pH 7.360 pH Units (7.350-7.450) 06/13/19 04:14 ABG pCO2 53.6 mm Hg 06/13/19 04:14 ABG pO2 62.6 mm Hg (80.0-90.0) L 06/13/19 04:14 ABG O2 Saturation 91.0 % (95.0-99.0) L 06/13/19 04:14 PT/INR, D-dimer PT 13.0 Sec. (12.2-14.9) 06/11/19 18:03 INR 0.97 (0.87-1.13) 06/11/19 18:03 Abnormal lab findings: Abnormal Labs 06/11/19 06/11/19 06/11/19 18:03 18:03 18:03 MCH 25 L RDW 19.4 H Plt Count 124 L P[place] % (Auto) 10.3 H Lymph # 1.1 L Seg Neutrophils % 74.4 H Seg Neuts % (Manual) Lymphocytes % (Manual) Seg Neutrophils # Man Lymphocytes # (Manual) ABG pH ABG pO2 ABG HCO3 ABG O2 Saturation ABG Base Excess ABG Hemoglobin Oxyhemoglobin Sodium 146 H Chloride BUN 21 H Creatinine 0.4 L Glucose POC Glucose Calcium Magnesium 2.70 H CK-MB (CK-2) CK-MB (CK-2) Rel Index Albumin 3.5 L Urine WBC (Auto) Salicylates 1.0 L Acetaminophen 06/11/19 06/11/19 06/11/19 18:03 18:59 23:22 MCH RDW Plt Count [place] % (Auto) Lymph # Seg Neutrophils % Seg Neuts % (Manual) Lymphocytes % (Manual) Seg Neutrophils # Man Lymphocytes # (Manual) ABG pH 7.340 L ABG pO2 76.0 L ABG HCO3 34.6 H ABG O2 Saturation ABG Base Excess 7.1 H ABG Hemoglobin 10.9 L Oxyhemoglobin 91.6 L Sodium Chloride BUN Creatinine Glucose POC Glucose Calcium Magnesium CK-MB (CK-2) 5.5 H CK-MB (CK-2) Rel Index 5.5 H Albumin Urine WBC (Auto) Salicylates Acetaminophen < 5.0 L 06/12/19 06/12/19 06/12/19 00:29 02:04 04:20 MCH RDW Plt Count [place] % (Auto) Lymph # Seg Neutrophils % Seg Neuts % (Manual) Lymphocytes % (Manual) Seg Neutrophils # Man Lymphocytes # (Manual) ABG pH 7.313 L ABG pO2 75.3 L ABG HCO3 29.9 H ABG O2 Saturation 94.3 L ABG Base Excess ABG Hemoglobin 10.8 L Oxyhemoglobin 92.0 L Sodium Chloride BUN Creatinine Glucose POC Glucose 107 H Calcium Magnesium CK-MB (CK-2) CK-MB (CK-2) Rel Index Albumin Urine WBC (Auto) 30.0 H Salicylates Acetaminophen 06/12/19 06/12/19 06/12/19 05:09 05:09 05:09 MCH 25 L RDW 19.4 H Plt Count 114 L [place] % (Auto) Lymph # Seg Neutrophils % Seg Neuts % (Manual) 91.0 H Lymphocytes % (Manual) 7.0 L Seg Neutrophils # Man Lymphocytes # (Manual) 0.4 L ABG pH ABG pO2 ABG HCO3 ABG O2 Saturation ABG Base Excess ABG Hemoglobin Oxyhemoglobin Sodium 147 H Chloride 107.4 H BUN 19 H Creatinine 0.4 L Glucose 110 H POC Glucose Calcium 8.2 L Magnesium CK-MB (CK-2) CK-MB (CK-2) Rel Index 5.4 H Albumin Urine WBC (Auto) Salicylates Acetaminophen 06/12/19 06/12/19 06/13/19 06:42 23:21 04:14 MCH RDW Plt Count [place] % (Auto) Lymph # Seg Neutrophils % Seg Neuts % (Manual) Lymphocytes % (Manual) Seg Neutrophils # Man Lymphocytes # (Manual) ABG pH ABG pO2 62.6 L ABG HCO3 29.6 H ABG O2 Saturation 91.0 L ABG Base Excess ABG Hemoglobin 10.3 L Oxyhemoglobin 89.0 L Sodium Chloride BUN Creatinine Glucose POC Glucose 108 H 106 H Calcium Magnesium CK-MB (CK-2) CK-MB (CK-2) Rel Index Albumin Urine WBC (Auto) Salicylates Acetaminophen 06/13/19 06/13/19 06/13/19 04:54 04:54 12:20 MCH 25 L RDW 19.2 H Plt Count 119 L [place] % (Auto) Lymph # Seg Neutrophils % Seg Neuts % (Manual) 95.0 H Lymphocytes % (Manual) 2.0 L Seg Neutrophils # Man 9.1 H Lymphocytes # (Manual) 0.2 L ABG pH ABG pO2 ABG HCO3 ABG O2 Saturation ABG Base Excess ABG Hemoglobin Oxyhemoglobin Sodium 149 H Chloride 111.4 H BUN 26 H Creatinine 0.5 L Glucose 107 H POC Glucose 125 H Calcium Magnesium CK-MB (CK-2) CK-MB (CK-2) Rel Index Albumin Urine WBC (Auto) Salicylates Acetaminophen
[2019-06-13] MEDS: VENLAFAXINE 75 MG TAB PO SCH ×2 (15:43→20:16)
[2019-06-13] MEDS ORDERED: KETAMINE 500 MG/5 ML VIAL MDV ONE (15:44)
[2019-06-13] MEDS ORDERED: ROCURONIUM 50 MG/5 ML INJ IV ONE (15:44)
[2019-06-13] MEDS: dilTIAZem 30 MG TAB PO SCH ×2 (15:54→23:31)
[2019-06-13] MEDS ORDERED: LORazepam 100 MG in SODIUM CHLORIDE 0.9% 50 ML, EMPTY BAG 0 ML IV SCH (16:25)
[2019-06-13] MEDS ORDERED: LORazepam 2 MG/ML VIAL ONE (16:27)
[2019-06-13] MEDS ORDERED: LORazepam 2 MG/ML VIAL IV ONE (16:42)
[2019-06-13] MEDS: LORazepam 100 MG in SODIUM CHLORIDE 0.9% 50 ML, EMPTY BAG 0 ML IV SCH (17:07)
[2019-06-13] MEDS ORDERED: FUROSEMIDE 20 MG/2 ML INJ IV ONE (17:45)
[2019-06-13] MEDS ORDERED: SIMPLE SYRUP 15 ML FEEDTUBE PRN ×2 (17:52)
[2019-06-13] MEDS ORDERED: SODIUM BICARBONATE 325 MG TAB FEEDTUBE PRN (17:52)
[2019-06-13] MEDS ORDERED: LIPASE 10,500/PROTEASE 25,000/AMYLASE 43,750 (UNITS) DR CAP FEEDTUBE PRN (17:52)
[2019-06-13] MEDS: SODIUM CHLORIDE 0.9% 1000 ML 1,000 ML IV SCH ×2 (17:59→20:07)
[2019-06-13] MEDS: ALPRAZolam 0.25 MG TAB PO PRN (23:32)
[2019-06-14] MEDS: INSULIN LISPRO 100 UNIT/ML SUB-Q SCH ×2 (00:38→07:55)
--- NOTE | 2019-06-14 04:07 | XRay Report ---
CHEST 1 VIEW [id number] INDICATION / CLINICAL INFORMATION: follow up respiratory failure. COMPARISON: 06/13/2019 FINDINGS: SUPPORT DEVICES: Endotracheal tube and nasogastric tube appear to be in satisfactory position. HEART / MEDIASTINUM: Stable LUNGS / PLEURA: Left basilar atelectasis and/or infiltrate continues without significant change. Mini mal diffuse increased interstitial markings continue. No pneumothorax. ADDITIONAL FINDINGS: No significant additional findings. IMPRESSION: No significant changes Signer Name: Alex Shay MD Signed: 06/14/2019 4:03 AM Workstation Name: [id number]
[2019-06-14 04:54] LABS: ABG HCO3 29.5 mmol/L (20.0-26.0); ABG PCO2 52.5 mm Hg; ABG PH 7.367 pH Units (7.350-7.450); ABG PO2 58.9 mm Hg (80.0-90.0)
[2019-06-14 04:58] LABS: ABG Methemoglobin 0.4 % (0.0-1.5); ABG Oxygen Saturation 88.7 % (95.0-99.0)
[2019-06-14 05:48] LABS: BUN/Creatinine Ratio 50; Blood Urea Nitrogen 20 mg/dL (7-17); Calcium 8.5 mg/dL (8.4-10.2); Hemolysis Index 7
[2019-06-14] MEDS: IPRATROPIUM/ALBUTEROL SULFATE 3 ML AMPUL.NEB IH SCH ×3 (08:11→20:20)
[2019-06-14] MEDS ORDERED: ALBUTEROL 2.5 MG/3 ML NEBU IH PRN (08:20)
--- NOTE | 2019-06-14 08:36 | Progress Note ---
Assessment and Plan Assessment and plan: --Hypernatremia; free water flushes via [place] If no improvement , will start D5W IV fluids, monitor sodium levels --Tube feeding diet; per dietary recommendations --Episode of SVT; This morning patient is in sinus rhythm heart rate in 90s Continue Cardizem, cardiology following --Acute hypoxic and hypercapnic respiratory failure: Requiring intubation and ventilatory support Nebulizers, IV steroids, IV antibiotics inhalation steroids Pulmonary critical following, supportive care Wean as tolerated and extubate --Acute exacerbation of COPD : Nebulizers, tapering doses steroids --History of coronary artery disease/CHF Low-dose Lasix, continue other cardiac meds --History of depression; Resume antidepressive medications --Ongoing tobacco use; Will milieu counselor smoking cessation when patient is more stable Nicotine patch as needed --Obesity; BMI 32.2 Patient needs weight reduction when medically stable --DVT prophylaxis; Lovenox --Full CODE STATUS Restraints in place Patient is critically ill with poor prognosis Closely monitor the patient and adjust management as needed Follow system sales consultant recommendations The high probability of a clinically significant, sudden or life threatening deterioration of the [respiratory, CVS] system(s) required my full and direct attention, intervention and personal management. The aggregate critical care time was [35] minutes. This time is in addition to time spent performing reported procedures but includes the following: [x] Data Review and interpretation [x] Patient assessment and monitoring of vital signs [x] Documentation [x] Medication orders and management Critical care time 40 minutes History Interval history: Patient seen and examined at the bedside in ICU this morning Patient's chart, medications, overnight events reviewed Patient remains intubated on ventilatory support and sedated Not in acute distress Vital signs noted Hospitalist Physical - Constitutional Vitals: Temp Pulse Resp BP Pulse Ox 98.3 F 82 20 129/67 95 06/14/19 08:00 06/14/19 08:12 06/14/19 08:12 06/14/19 08:08 06/14/19 08:14 General appearance: Present: no acute distress, well-nourished, obese, other (Intubated on ventilatory support sedated) - EENT Eyes: Present: PERRL, EOM intact - Neck Neck: Present: supple, normal ROM - Respiratory Respiratory effort: normal Respiratory: bilateral: diminished, negative: rales, rhonchi, wheezing - Cardiovascular Rhythm: regular Heart Sounds: Present: S1 & S2 - Extremities Extremities: no ischemia, No edema - Abdominal General gastrointestinal: soft, non-tender, non-distended, normal bowel sounds - Integumentary Integumentary: Present: clear, warm - Psychiatric Psychiatric: other (Intubated on vent) - Neurologic Neurologic: CNII-XII intact, other (Intubated on vent) Results - Labs CBC & Chem 7: 06/13/19 04:54 06/14/19 04:55 Labs: Laboratory Last Values WBC 9.6 K/mm3 (4.5-11.0) 06/13/19 04:54 RBC 4.23 M/mm3 (3.65-5.03) 06/13/19 04:54 Hgb 10.5 gm/dl (10.1-14.3) 06/13/19 04:54 Hct 35.4 % (30.3-42.9) 06/13/19 04:54 MCV 84 fl (79-97) 06/13/19 04:54 MCH 25 pg (28-32) L 06/13/19 04:54 MCHC 30 % (30-34) 06/13/19 04:54 RDW 19.2 % (13.2-15.2) H 06/13/19 04:54 Plt Count 119 K/mm3 (140-440) L 06/13/19 04:54 Lymph % (Auto) 13.7 % (13.4-35.0) 06/11/19 18:03 [place] % (Auto) 10.3 % (0.0-7.3) H 06/11/19 18:03 Eos % (Auto) 0.8 % (0.0-4.3) 06/11/19 18:03 Baso % (Auto) 0.8 % (0.0-1.8) 06/11/19 18:03 Lymph # 1.1 K/mm3 (1.2-5.4) L 06/11/19 18:03 [place] # 0.8 K/mm3 (0.0-0.8) 06/11/19 18:03 Eos # 0.1 K/mm3 (0.0-0.4) 06/11/19 18:03 Baso # 0.1 K/mm3 (0.0-0.1) 06/11/19 18:03 Add Manual Diff Complete 06/13/19 04:54 Total Counted 100 06/13/19 04:54 Seg Neutrophils % Flotation Operator 06/13/19 04:54 Seg Neuts % (Manual) 95.0 % (40.0-70.0) H 06/13/19 04:54 Band Neutrophils % 0 % 06/13/19 04:54 Lymphocytes % (Manual) 2.0 % (13.4-35.0) L 06/13/19 04:54 Reactive Lymphs % (Man) 0 % 06/13/19 04:54 Monocytes % (Manual) 3.0 % (0.0-7.3) 06/13/19 04:54 Eosinophils % (Manual) 0 % (0.0-4.3) 06/13/19 04:54 Basophils % (Manual) 0 % (0.0-1.8) 06/13/19 04:54 Metamyelocytes % 0 % 06/13/19 04:54 Myelocytes % 0 % 06/13/19 04:54 Promyelocytes % 0 % 06/13/19 04:54 Blast Cells % 0 % 06/13/19 04:54 Nucleated RBC % Not Reportable 06/13/19 04:54 Seg Neutrophils # 6.0 K/mm3 (1.8-7.7) 06/11/19 18:03 Seg Neutrophils # Man 9.1 K/mm3 (1.8-7.7) H 06/13/19 04:54 Band Neutrophils # 0.0 K/mm3 06/13/19 04:54 Lymphocytes # (Manual) 0.2 K/mm3 (1.2-5.4) L 06/13/19 04:54 Abs React Lymphs (Man) 0.0 K/mm3 06/13/19 04:54 Monocytes # (Manual) 0.3 K/mm3 (0.0-0.8) 06/13/19 04:54 Eosinophils # (Manual) 0.0 K/mm3 (0.0-0.4) 06/13/19 04:54 Basophils # (Manual) 0.0 K/mm3 (0.0-0.1) 06/13/19 04:54 Metamyelocytes # 0.0 K/mm3 06/13/19 04:54 Myelocytes # 0.0 K/mm3 06/13/19 04:54 Promyelocytes # 0.0 K/mm3 06/13/19 04:54 Blast Cells # 0.0 K/mm3 06/13/19 04:54 WBC Morphology Not Reportable 06/13/19 04:54 Hypersegmented Neuts Not Reportable 06/13/19 04:54 Hyposegmented Neuts Not Reportable 06/13/19 04:54 Hypogranular Neuts Not Reportable 06/13/19 04:54 Smudge Cells Not Reportable 06/13/19 04:54 Toxic Granulation Not Reportable 06/13/19 04:54 Toxic Vacuolation Not Reportable 06/13/19 04:54 Dohle Bodies Not Reportable 06/13/19 04:54 Pelger-Huet Anomaly Not Reportable 06/13/19 04:54 Neha Rods Not Reportable 06/13/19 04:54 Platelet Estimate Consistent w auto 06/13/19 04:54 Clumped Platelets Not Reportable 06/13/19 04:54 Plt Clumps, EDTA Not Reportable 06/13/19 04:54 Large Platelets Not Reportable 06/13/19 04:54 Giant Platelets Not Reportable 06/13/19 04:54 Platelet Satelliting Not Reportable 06/13/19 04:54 Plt Morphology Comment Not Reportable 06/13/19 04:54 RBC Morphology Not Reportable 06/13/19 04:54 Dimorphic RBCs Not Reportable 06/13/19 04:54 Polychromasia Not Reportable 06/13/19 04:54 Hypochromasia Few 06/13/19 04:54 Poikilocytosis Not Reportable 06/13/19 04:54 Anisocytosis Not Reportable 06/13/19 04:54 Microcytosis Not Reportable 06/13/19 04:54 Macrocytosis Not Reportable 06/13/19 04:54 Spherocytes Rare 06/13/19 04:54 Pappenheimer Bodies Not Reportable 06/13/19 04:54 Sickle Cells Not Reportable 06/13/19 04:54 Target Cells Not Reportable 06/13/19 04:54 Tear Drop Cells Not Reportable 06/13/19 04:54 Ovalocytes Rare 06/13/19 04:54 Helmet Cells Not Reportable 06/13/19 04:54 Benoit-Belfonte Bodies Not Reportable 06/13/19 04:54 Bronson Rings Not Reportable 06/13/19 04:54 Damien Cells Not Reportable 06/13/19 04:54 Bite Cells Not Reportable 06/13/19 04:54 Crenated Cell Not Reportable 06/13/19 04:54 Elliptocytes Not Reportable 06/13/19 04:54 Acanthocytes (Spur) Not Reportable 06/13/19 04:54 Rouleaux Not Reportable 06/13/19 04:54 Hemoglobin C Crystals Not Reportable 06/13/19 04:54 Schistocytes Not Reportable 06/13/19 04:54 Malaria parasites Not Reportable 06/13/19 04:54 Hernan Bodies Not Reportable 06/13/19 04:54 Hem Pathologist Commnt No 06/13/19 04:54 PT 13.0 Sec. (12.2-14.9) 06/11/19 18:03 INR 0.97 (0.87-1.13) 06/11/19 18:03 ABG pH 7.367 pH Units (7.350-7.450) 06/14/19 03:44 ABG pCO2 52.5 mm Hg 06/14/19 03:44 ABG pO2 58.9 mm Hg (80.0-90.0) L 06/14/19 03:44 ABG HCO3 29.5 mmol/L (20.0-26.0) H 06/14/19 03:44 ABG O2 Saturation 88.7 % (95.0-99.0) L 06/14/19 03:44 ABG O2 Content 18.8 (0.0-44) 06/14/19 03:44 ABG Base Excess 3.0 mmol/L (-2.0-3.0) 06/14/19 03:44 ABG Hemoglobin 10.2 gm/dl (12.0-16.0) L 06/14/19 03:44 ABG Carboxyhemoglobin 1.8 % (0.0-5.0) 06/14/19 03:44 ABG Methemoglobin 0.4 % (0.0-1.5) 06/14/19 03:44 Oxyhemoglobin 86.7 % (95.0-99.0) L 06/14/19 03:44 FiO2 40 % 06/14/19 03:44 Sodium 150 mmol/L (137-145) H 06/14/19 04:55 Potassium 3.8 mmol/L (3.6-5.0) 06/14/19 04:55 Chloride 110.4 mmol/L (98-107) H 06/14/19 04:55 Carbon Dioxide 28 mmol/L (22-30) 06/14/19 04:55 Anion Gap 15 mmol/L 06/14/19 04:55 BUN 20 mg/dL (7-17) H 06/14/19 04:55 Creatinine 0.4 mg/dL (0.7-1.2) L 06/14/19 04:55 Estimated GFR > 60 ml/min 06/14/19 04:55 BUN/Creatinine Ratio 50 % 06/14/19 04:55 Glucose 105 mg/dL (65-100) H 06/14/19 04:55 POC Glucose 111 (70-105) H 06/14/19 05:37 Calcium 8.5 mg/dL (8.4-10.2) 06/14/19 04:55 Phosphorus 3.40 mg/dL (2.5-4.5) 06/13/19 04:54 Magnesium 2.10 mg/dL (1.7-2.3) 06/13/19 04:54 Total Bilirubin 0.30 mg/dL (0.1-1.2) 06/11/19 18:03 AST 14 units/L (5-40) 06/11/19 18:03 ALT 8 units/L (7-56) 06/11/19 18:03 Alkaline Phosphatase 85 units/L (35-129) 06/11/19 18:03 Total Creatine Kinase 74 units/L (30-135) 06/12/19 05:09 CK-MB (CK-2) 4.0 ng/mL (0.0-4.0) 06/12/19 05:09 CK-MB (CK-2) Rel Index 5.4 (0-4) H 06/12/19 05:09 Troponin T < 0.010 ng/mL (0.00-0.029) 06/12/19 05:09 Total Protein 6.4 g/dL (6.3-8.2) 06/11/19 18:03 Albumin 3.5 g/dL (3.9-5) L 06/11/19 18:03 Albumin/Globulin Ratio 1.2 % 06/11/19 18:03 Urine Color Yellow (Yellow) 06/12/19 02:04 Urine Turbidity Clear (Clear) 06/12/19 02:04 Urine pH 5.0 (5.0-7.0) 06/12/19 02:04 Ur Specific [place] 1.027 (1.003-1.030) 06/12/19 02:04 Urine Protein 30 mg/dl mg/dL (Negative) 06/12/19 02:04 Urine Glucose (UA) Neg mg/dL (Negative) 06/12/19 02:04 Urine Ketones 80 mg/dL (Negative) 06/12/19 02:04 Urine Blood Lg (Negative) 06/12/19 02:04 Urine Nitrite Neg (Negative) 06/12/19 02:04 Urine Bilirubin Neg (Negative) 06/12/19 02:04 Urine Urobilinogen 2.0 mg/dL (<2.0) 06/12/19 02:04 Ur Leukocyte Esterase Neg (Negative) 06/12/19 02:04 Urine WBC (Auto) 30.0 /HPF (0.0-6.0) H 06/12/19 02:04 Urine RBC (Auto) > 182.0 /HPF (0.0-6.0) 06/12/19 02:04 Urine Bacteria (Auto) 1+ /HPF (Negative) 06/12/19 02:04 Urine Mucus 3+ /HPF 06/12/19 02:04 Urine Yeast (Budding) Few /HPF 06/12/19 02:04 Salicylates 1.0 mg/dL (2.8-20.0) L 06/11/19 18:03 Acetaminophen < 5.0 ug/mL (10.0-30.0) L 06/11/19 18:03 Microbiology: Microbiology 06/11/19 19:16 Peripheral/Venous Blood Culture - Preliminary NO GROWTH AFTER 48 HOURS 06/11/19 19:19 Peripheral/Venous Blood Culture - Preliminary NO GROWTH AFTER 48 HOURS 06/11/19 20:50 Tracheal Aspirate Sputum Culture - Final Pseudomonas Aeruginosa 06/11/19 Unknown Urine,Clean Catch Urine Culture - Preliminary NO GROWTH AFTER 24 HOURS Harley/IV: Voiding Method Indwelling Catheter IV Catheter Type [Left Peripheral IV Antecubital] IV Catheter Type [Right Wrist] Peripheral IV IV Catheter Type [Right Hand] Peripheral IV Active Medications - Current Medications Current Medications: Generic Name Dose Route Start Last Admin Trade Name Freq PRN Reason Stop Dose Admin Acetaminophen 650 mg 06/11/19 22:48 Tylenol PO Q4H PRN Pain MILD(1-3)/Fever >100.5/PRAJAPATI Albuterol 2.5 mg 06/14/19 08:20 Proventil IH Q4HRT PRN Shortness Of Breath Albuterol/Ipratropium 1 ampul 06/14/19 14:00 Duoneb *Not For Prn Use* IH TIDRT DOMINICK Alprazolam 0.25 mg 06/13/19 10:23 06/13/19 23:32 Xanax PO 0.25 mg Q8H PRN Administration Anxiety Lipase/Protease/Amylase 1 each 06/13/19 17:52 Pancreazmarlene Pereira 10,500 Unit FEEDTUBE PRN PRN For Clogged Feeding Tube Arformoterol Tartrate 15 mcg 06/14/19 20:00 Brovana Nebu [facility]H Q12HRT [facility] Budesonide 0.5 mg 06/14/19 20:00 Pulmicort IH Q12HRT [facility] Dextrose 50 ml 06/11/19 22:48 D50w (25gm) Syringe IV Q30MIN PRN Hypoglycemia Protocol Diltiazem HCl 30 mg 06/13/19 12:00 06/13/19 23:31 Cardizem PO 30 mg Q12H DOMINICK Administration Fentanyl 50 mcg 06/11/19 17:45 06/11/19 20:52 Sublimaze IV 50 mcg Q10MIN PRN Administration ANALGESIA Furosemide 20 mg 06/14/19 10:00 Lasix IV QDAY [facility] Hydrophilic Ointment 1 applic 06/11/19 17:44 Vaseline Lip Therapy TP Q2HR PRN Dry Lips Fentanyl Citrate 2,000 mcg in 100 mls @ 3.742 mls/hr 06/11/19 18:00 06/13/19 23:32 Fentanyl Drip Premix IV 2 mcg/kg/hr TITR DOMINICK 7.484 mls/hr Administration Protocol 1 MCG/KG/HR Lorazepam 100 mg/ Sodium 100 mls @ 1 mls/hr 06/11/19 18:00 06/13/19 19:25 Chloride/ Miscellaneous IV 1 mg/hr Information TITR DOMINICK 1 mls/hr Titration Protocol 1 MG/HR Cefepime HCl 1 gm in 100 mls @ 200 mls/hr 06/14/19 14:00 Cefepime/Ns 1 Gm/100 Ml IV 06/19/19 13:59 Q8HR [facility] Protocol Insulin Human Lispro 0 unit 06/12/19 00:00 06/14/19 07:55 Humalog SUB-Q Not Given Q6HR [facility] Protocol Lansoprazole 30 mg 06/13/19 11:00 06/13/19 11:24 Prevacid Solutab FEEDTUBE 30 mg QDAY [facility] Administration Lisinopril 10 mg 06/14/19 10:00 Zestril PO DAILY [facility] Methylprednisolone Sodium Succinate 80 mg 06/13/19 17:45 06/13/19 23:30 Solu-Medrol IV 80 mg Q6HR [facility] Administration Multi-Ingred Cream/Lotion/Oil/Oint 1 applic 06/11/19 17:44 Artificial Tears Ophth Oint OU Q4HR PRN Dry Eye(s) Ondansetron HCl 4 mg 06/11/19 22:48 Zofran IV Q8H PRN Nausea And Vomiting Quetiapine Fumarate 300 mg 06/13/19 11:00 06/13/19 22:05 Seroquel PO 300 mg BID [facility] Administration Simple Syrup 15 ml 06/13/19 17:52 Simple Syrup FEEDTUBE PRN PRN Hypoglycemia Simple Syrup 30 ml 06/13/19 17:52 Simple Syrup FEEDTUBE PRN PRN Hypoglycemia Sodium Bicarbonate 325 mg 06/13/19 17:52 Sodium Bicarbonate FEEDTUBE PRN PRN For Clogged Feeding Tube Sodium Chloride 10 ml 06/12/19 10:00 06/14/19 07:54 Sodium Chloride Flush Syringe 10 Ml IV Not Given BID DOMINICK Sodium Chloride 10 ml 06/11/19 22:48 06/13/19 22:00 Sodium Chloride Flush Syringe 10 Ml IV 10 ml PRN PRN Administration LINE FLUSH Venlafaxine HCl 75 mg 06/13/19 14:00 06/13/19 20:16 Effexor PO 75 mg TID DOMINICK Administration Nutrition/Malnutrition Assess - Dietary Evaluation Nutrition/Malnutrition Findings: Nutrition Notes Start: 06/12/19 11:05 Freq: Status: Active Protocol: Document 06/14/19 08:19 LM (Rec: 06/14/19 08:28 LM [id number]) Nutrition Notes Initial or Follow up Reassessment Current Diagnosis COPD,Coronary Artery Disease, Hypertension,Heart Failure, Respiratory Failure Other Pertinent Diagnosis COPD exacerbation Current Diet TF diet Labs/Tests Na 150 Pertinent Medications Reviewed Height 5 ft Weight 74.843 kg [place] Body Weight (kg) 45.45 BMI 32.2 Weight Status Obese Subjective/Other Information MD consult for TF. Pt remains on vent. Burn Absent Trauma Absent Current % PO Negligible Minimum of two criteria No #1 Nutrition Diagnosis Inadequate oral intake Diagnosis Progress(for reassessment Continues documentation) Is patient on ventilator? Yes Is Patient Ambulatory and/or Out of Bed No REE-([facility] Je[facility]-confined to bed) 1486.872 Calculation Used for Recommendations [facility] Additional Notes Pro needs 2g/kg IBW: 91g/day 1ml/kcal Nutrition Intervention Change Diet Order: TF Nutrition Support: Promote 1.0 at 60ml/hr Flush 50ml q4h Kcal 1,440 Protein (gm) 90 Fluid (mL) 1,208 Goal #1 TF start/tolerance Anticipated Discharge Needs: Unable to identify at this time Follow-Up By: 06/16/19 Additional Comments F/U for TF start/tolerance
[2019-06-14] MEDS: FUROSEMIDE 20 MG/2 ML INJ IV SCH (10:03)
[2019-06-14] MEDS: LANSOPRAZOLE 30 MG SOLUTAB FEEDTUBE SCH (10:30)
[2019-06-14] MEDS: QUEtiapine 100 MG TAB PO SCH ×2 (10:30→21:08)
[2019-06-14] MEDS: LISINOPRIL 10 MG TAB PO SCH (10:35)
[2019-06-14] MEDS: VENLAFAXINE 75 MG TAB PO SCH ×3 (10:36→21:10)
--- NOTE | 2019-06-14 11:13 | Progress Note ---
Assessment and Plan Aflutter versus Vtach currently in sinus rhythm on diltiazem for suppression Hx of Paroxysmal afib/multifocal atrial tachycardia not on anticoagulation secondary to history of melena and anemia. 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 She did undergo PCI of the mid LAD using bare metal stent. Subjective Date of service: 06/14/19 Interval history: Intubated on the ventilator. Stable sinus rhythm on telemetry. Objective Vital Signs Temp Pulse Pulse Pulse Pulse Pulse Resp 06/14/19 10:35 99 H 06/14/19 10:00 82 19 06/14/19 09:45 88 20 06/14/19 09:31 84 19 06/14/19 09:15 87 15 06/14/19 09:00 88 20 06/14/19 08:46 85 16 06/14/19 08:30 87 19 06/14/19 08:15 89 20 06/14/19 08:14 06/14/19 08:12 82 06/14/19 08:08 82 06/14/19 08:01 83 13 06/14/19 08:00 98.3 F 96 H 96 H 96 H 21 06/14/19 07:46 82 16 06/14/19 07:31 85 17 06/14/19 07:15 84 19 06/14/19 07:01 84 20 06/14/19 06:45 85 20 06/14/19 06:31 88 20 06/14/19 06:15 85 20 06/14/19 06:01 87 20 06/14/19 05:45 90 19 06/14/19 05:31 92 H 20 06/14/19 05:15 96 H 20 06/14/19 05:01 99 H 21 06/14/19 04:45 111 H 16 06/14/19 04:30 122 H 13 06/14/19 04:15 94 H 15 06/14/19 04:01 103 H 18 06/14/19 04:00 96 H 96 H 96 H 96 H 21 06/14/19 03:45 120 H 14 06/14/19 03:40 94 H 06/14/19 03:37 98.8 F 06/14/19 03:30 114 H 19 06/14/19 03:15 120 H 21 06/14/19 03:00 102 H 20 06/14/19 02:45 102 H 20 06/14/19 02:31 100 H 21 06/14/19 02:15 101 H 20 06/14/19 02:01 97 H 20 06/14/19 01:45 99 H 19 06/14/19 01:30 102 H 20 06/14/19 01:15 102 H 20 06/14/19 01:00 105 H 15 06/14/19 00:45 111 H 20 06/14/19 00:30 101 H 20 06/14/19 00:15 106 H 20 06/14/19 00:14 100 H 06/14/19 00:00 105 H 20 06/13/19 23:47 98 H 20 06/13/19 23:45 93 H 20 06/13/19 23:43 91 H 91 H 91 H 06/13/19 23:31 89 20 06/13/19 23:24 98.9 F 06/13/19 23:15 93 H 21 06/13/19 23:00 95 H 17 06/13/19 22:45 94 H 20 06/13/19 22:30 95 H 20 06/13/19 22:15 93 H 06/13/19 22:00 94 H 20 06/13/19 21:45 95 H 06/13/19 21:30 95 H 20 06/13/19 21:15 97 H 17 06/13/19 21:00 99 H 21 06/13/19 20:59 100 H 06/13/19 20:48 101 H 06/13/19 20:45 105 H 20 06/13/19 20:30 106 H 20 06/13/19 20:15 111 H 20 06/13/19 20:00 99.1 F 109 H 91 H 91 H 91 H 20 06/13/19 19:45 115 H 20 06/13/19 19:31 114 H 20 06/13/19 19:15 114 H 19 06/13/19 19:00 111 H 19 06/13/19 18:45 108 H 20 06/13/19 18:30 119 H 19 06/13/19 18:23 113 H 06/13/19 18:15 114 H 17 06/13/19 18:01 120 H 18 06/13/19 17:45 125 H 16 06/13/19 17:31 200 H 16 06/13/19 17:15 191 H 20 06/13/19 17:04 190 H 06/13/19 17:01 189 H 20 06/13/19 16:46 187 H 17 06/13/19 16:31 198 H 20 06/13/19 16:15 160 H 21 06/13/19 16:00 99.4 F 109 H 115 H 115 H 115 H 13 06/13/19 15:54 112 H 06/13/19 15:45 108 H 22 06/13/19 15:30 111 H 13 06/13/19 15:19 108 H 110 H 06/13/19 15:15 107 H 26 H 06/13/19 15:01 107 H 24 06/13/19 14:45 108 H 16 06/13/19 14:31 108 H 14 06/13/19 14:15 103 H 17 06/13/19 14:01 107 H 12 06/13/19 13:45 95 H 12 06/13/19 13:31 96 H 21 06/13/19 13:15 97 H 23 06/13/19 13:00 98 H 17 06/13/19 12:45 106 H 19 06/13/19 12:30 112 H 20 06/13/19 12:21 113 H 113 H 06/13/19 12:15 119 H 20 06/13/19 12:01 137 H 20 06/13/19 12:00 97.2 F L 99 H 99 H 99 H 99 H 24 06/13/19 11:45 107 H 18 06/13/19 11:31 109 H 21 06/13/19 11:15 100 H 14 Resp BP Pulse Ox 06/14/19 10:35 121/64 06/14/19 10:00 131/60 96 06/14/19 09:45 121/66 96 06/14/19 09:31 126/64 95 06/14/19 09:15 121/66 95 06/14/19 09:00 131/61 95 06/14/19 08:46 131/61 95 06/14/19 08:30 124/63 95 06/14/19 08:15 129/67 96 06/14/19 08:14 95 06/14/19 08:12 20 06/14/19 08:08 129/67 100 06/14/19 08:01 129/67 95 06/14/19 08:00 100 06/14/19 07:46 128/71 96 06/14/19 07:31 132/68 06/14/19 07:15 131/67 95 06/14/19 07:01 131/67 95 06/14/19 06:45 126/66 96 06/14/19 06:31 126/66 96 06/14/19 06:15 132/67 96 06/14/19 06:01 132/67 95 06/14/19 05:45 125/63 96 06/14/19 05:31 125/63 94 06/14/19 05:15 127/60 94 06/14/19 05:01 127/60 94 06/14/19 04:45 111/81 94 06/14/19 04:30 111/81 89 06/14/19 04:15 118/71 94 06/14/19 04:01 118/71 94 06/14/19 04:00 100 06/14/19 03:45 125/63 93 06/14/19 03:40 118/71 94 06/14/19 03:37 06/14/19 03:30 125/63 93 06/14/19 03:15 116/61 89 06/14/19 03:00 116/61 92 06/14/19 02:45 111/62 92 06/14/19 02:31 111/62 92 06/14/19 02:15 109/59 91 06/14/19 02:01 109/59 93 06/14/19 01:45 105/61 93 06/14/19 01:30 105/61 93 06/14/19 01:15 97/55 93 06/14/19 01:00 84/49 93 06/14/19 00:45 93/50 91 06/14/19 00:30 95/50 95 06/14/19 00:15 93/49 94 06/14/19 00:14 92/50 94 06/14/19 00:00 93/49 93 06/13/19 23:47 102/55 95 06/13/19 23:45 113/62 95 06/13/19 23:43 100 06/13/19 23:31 110/60 94 06/13/19 23:24 06/13/19 23:15 113/62 94 06/13/19 23:00 113/62 94 06/13/19 22:45 113/57 95 06/13/19 22:30 113/57 94 06/13/19 22:15 107/55 94 06/13/19 22:00 107/55 93 06/13/19 21:45 99/53 93 06/13/19 21:30 99/53 92 06/13/19 21:15 104/55 92 06/13/19 21:00 102/57 92 06/13/19 20:59 20 06/13/19 20:48 111/60 97 06/13/19 20:45 117/58 97 06/13/19 20:30 111/63 97 06/13/19 20:15 117/58 97 06/13/19 20:00 117/58 97 06/13/19 19:45 114/65 97 06/13/19 19:31 106/60 96 06/13/19 19:15 87/37 96 06/13/19 19:00 87/41 96 06/13/19 18:45 79/36 95 06/13/19 18:30 65/42 94 06/13/19 18:23 71/23 93 06/13/19 18:15 90 06/13/19 18:01 96 06/13/19 17:45 86 06/13/19 17:31 86 06/13/19 17:15 90 06/13/19 17:04 112/64 06/13/19 17:01 91 06/13/19 16:46 119/74 94 06/13/19 16:31 119/74 96 06/13/19 16:15 119/74 80 L 06/13/19 16:00 120/72 93 06/13/19 15:54 128/74 06/13/19 15:45 128/74 93 06/13/19 15:30 119/74 98 06/13/19 15:19 20 131/68 98 06/13/19 15:15 144/69 98 06/13/19 15:01 144/69 98 06/13/19 14:45 122/80 97 06/13/19 14:31 127/70 96 06/13/19 14:15 122/80 96 06/13/19 14:01 122/80 96 06/13/19 13:45 140/67 92 06/13/19 13:31 140/67 93 06/13/19 13:15 131/72 93 06/13/19 13:00 125/67 97 06/13/19 12:45 106/64 96 06/13/19 12:30 106/64 94 06/13/19 12:21 20 116/59 94 06/13/19 12:15 153/79 94 06/13/19 12:01 119/62 92 06/13/19 12:00 96 06/13/19 11:45 119/62 94 06/13/19 11:31 119/62 94 06/13/19 11:15 124/58 94 - Physical Examination General: Other (intubated on the vent) Cardiac: Positive: Reg Rate and Rhythm Abdomen: Positive: Soft. Negative: Pulsations/Bruits Extremities: Absent: edema - Labs and Meds Comprehensive Metabolic Panel 06/14/19 Range/Units 04:55 Sodium 150 H (137-145) mmol/L Potassium 3.8 (3.6-5.0) mmol/L Chloride 110.4 H (98-107) mmol/L Carbon Dioxide 28 (22-30) mmol/L BUN 20 H (7-17) mg/dL Creatinine 0.4 L (0.7-1.2) mg/dL Glucose 105 H (65-100) mg/dL Calcium 8.5 (8.4-10.2) mg/dL - Imaging and Cardiology EKG: image reviewed
[2019-06-14] MEDS: methylPREDNISolone Sod Succinate 125 MG/2 ML INJ IV SCH ×2 (12:03→17:39)
[2019-06-14] MEDS: dilTIAZem 30 MG TAB PO SCH (12:04)
[2019-06-14] MEDS: CEFEPIME/NS 1 GM/100 ML 1 GM/100 ML BAG IV SCH ×2 (13:25→21:09)
--- NOTE | 2019-06-14 14:10 | Progress Note ---
Assessment and Plan Acute and chronic hypoxic and hypercapnic respiratory failure: Acute exacerbation of COPD Tobacco use disorder/Nicotine dependence (on going) Hypernatremia History of coronary artery disease/CHF History of HTN Chronic narcotic dependence Chronic back pain Anxiety disorder History of depression; Obesity; BMI 32.2 - repeat ABG at 9 pm tonight - continue supplemental oxygen with restrictive strategies acutely re: severe COPD (PaO2 of 60 with O2 sats 88-90% is acceptable) - VAP bundle addressed (aspiration precautions; HOB > 40 degerees) - Daily SAT and SBT assessment as tolerated - continue bronchodilators with pulmonary hygiene per RT - Stop benzodiazepine's, reduce the possibility of delirium - Continue with fentanyl, titrate for RASS of 0 to -1 - Maintenance of sleep-wake cycle, avoid delirium - continue enteral nutritional support at goal rate as tolerated - Accuchecks with glycemic control per SSI for target blood glucose of 140-180 mg/dL while critically ill; avoid hypoglycemia - VTE prophylaxis (Lovenox) - Stress ulcer prophylaxis (Prevacid) - continue systemic Steroids - Empiric Antibiotics (Cefepime); de-escalate per ID rec's - Monitor hemodynamics closely - Avoid delirium; Avoid benzodiazepines - Nicotine withdrawal precautions, nicotine patch - In view of ongoing smoking, recurrent hospital admission, will need to re- address advance directives and goals of care, once the patient is able to be a part of that discussion. Will also address smoking cessation again, once she is able to be a part of that discussion - continue other care per attending / other oracle database consultant's .... re-evaluate in am & prn CONDITION: CRITICAL PROGNOSIS: GUARDED CODE STATUS: FULL CODE The high probability of a clinically significant, sudden or life-threatening deterioration of the respiratory, cardiovascular, neurology, endocrine system(s) required my full and direct attention, intervention and personal management. The aggregate critical care time was [35] minutes without overlap. Time includes spent on; [x] Data Review and interpretation [x] Patient assessment and monitoring of vital signs [x] Documentation [x] Medication orders and management Subjective Date of service: 06/14/19 Principal diagnosis: Ac and ch hypoxic & hypercapnic resp failure; AE-COPD; Tobacco use disorder Interval history: Patient is seen today for: Ac and ch hypoxic hypercapnic resp failure; AE-COPD; Tobacco use disorder/Nicotine dependence; Hypernatremia; HTN (hypotensive at presentation 0; Chronic narcotic dependence ; Chronic back pain; Anxiety disorder Seen and examined at bedside; 24-hour events reviewed; nursing and respiratory care staff consulted; no adverse overnight events reported to me; laying in bed; AMS is persistent; remains hypoxemic; no emesis opr overt aspiration; no seizures Objective Vital Signs - 12hr 06/14/19 06/14/19 06/14/19 02:15 02:31 02:45 Temperature Pulse Rate 101 H 100 H 102 H Pulse Rate [ Bilateral] Pulse Rate [ Dorsalis Pedis] Pulse Rate [ From Monitor] Pulse Rate [ Radial] Respiratory 20 21 20 Rate Respiratory Rate [Bilateral ] Blood Pressure 109/59 111/62 111/62 O2 Sat by Pulse 91 92 92 Oximetry 06/14/19 06/14/19 06/14/19 03:00 03:15 03:30 Temperature Pulse Rate 102 H 120 H 114 H Pulse Rate [ Bilateral] Pulse Rate [ Dorsalis Pedis] Pulse Rate [ From Monitor] Pulse Rate [ Radial] Respiratory 20 21 19 Rate Respiratory Rate [Bilateral ] Blood Pressure 116/61 116/61 125/63 O2 Sat by Pulse 92 89 93 Oximetry 06/14/19 06/14/19 06/14/19 03:37 03:40 03:45 Temperature 98.8 F Pulse Rate 94 H 120 H Pulse Rate [ Bilateral] Pulse Rate [ Dorsalis Pedis] Pulse Rate [ From Monitor] Pulse Rate [ Radial] Respiratory 14 Rate Respiratory Rate [Bilateral ] Blood Pressure 118/71 125/63 O2 Sat by Pulse 94 93 Oximetry 06/14/19 06/14/19 06/14/19 04:00 04:01 04:15 Temperature Pulse Rate 96 H 103 H 94 H Pulse Rate [ Bilateral] Pulse Rate [ 96 H Dorsalis Pedis] Pulse Rate [ 96 H From Monitor] Pulse Rate [ 96 H Radial] Respiratory 21 18 15 Rate Respiratory Rate [Bilateral ] Blood Pressure 118/71 118/71 O2 Sat by Pulse 100 94 94 Oximetry 06/14/19 06/14/19 06/14/19 04:30 04:45 05:01 Temperature Pulse Rate 122 H 111 H 99 H Pulse Rate [ Bilateral] Pulse Rate [ Dorsalis Pedis] Pulse Rate [ From Monitor] Pulse Rate [ Radial] Respiratory 13 16 21 Rate Respiratory Rate [Bilateral ] Blood Pressure 111/81 111/81 127/60 O2 Sat by Pulse 89 94 94 Oximetry 06/14/19 06/14/19 06/14/19 05:15 05:31 05:45 Temperature Pulse Rate 96 H 92 H 90 Pulse Rate [ Bilateral] Pulse Rate [ Dorsalis Pedis] Pulse Rate [ From Monitor] Pulse Rate [ Radial] Respiratory 20 20 19 Rate Respiratory Rate [Bilateral ] Blood Pressure 127/60 125/63 125/63 O2 Sat by Pulse 94 94 96 Oximetry 06/14/19 06/14/19 06/14/19 06:01 06:15 06:31 Temperature Pulse Rate 87 85 88 Pulse Rate [ Bilateral] Pulse Rate [ Dorsalis Pedis] Pulse Rate [ From Monitor] Pulse Rate [ Radial] Respiratory 20 20 20 Rate Respiratory Rate [Bilateral ] Blood Pressure 132/67 132/67 126/66 O2 Sat by Pulse 95 96 96 Oximetry 06/14/19 06/14/19 06/14/19 06:45 07:01 07:15 Temperature Pulse Rate 85 84 84 Pulse Rate [ Bilateral] Pulse Rate [ Dorsalis Pedis] Pulse Rate [ From Monitor] Pulse Rate [ Radial] Respiratory 20 20 19 Rate Respiratory Rate [Bilateral ] Blood Pressure 126/66 131/67 131/67 O2 Sat by Pulse 96 95 95 Oximetry 06/14/19 06/14/19 06/14/19 07:31 07:46 08:00 Temperature 98.3 F Pulse Rate 85 82 Pulse Rate [ Bilateral] Pulse Rate [ 96 H Dorsalis Pedis] Pulse Rate [ 96 H From Monitor] Pulse Rate [ 96 H Radial] Respiratory 17 16 21 Rate Respiratory Rate [Bilateral ] Blood Pressure 132/68 128/71 O2 Sat by Pulse 96 100 Oximetry 06/14/19 06/14/19 06/14/19 08:01 08:08 08:12 Temperature Pulse Rate 83 82 Pulse Rate [ 82 Bilateral] Pulse Rate [ Dorsalis Pedis] Pulse Rate [ From Monitor] Pulse Rate [ Radial] Respiratory 13 Rate Respiratory 20 Rate [Bilateral ] Blood Pressure 129/67 129/67 O2 Sat by Pulse 95 100 Oximetry 06/14/19 06/14/19 06/14/19 08:14 08:15 08:30 Temperature Pulse Rate 89 87 Pulse Rate [ Bilateral] Pulse Rate [ Dorsalis Pedis] Pulse Rate [ From Monitor] Pulse Rate [ Radial] Respiratory 20 19 Rate Respiratory Rate [Bilateral ] Blood Pressure 129/67 124/63 O2 Sat by Pulse 95 96 95 Oximetry 06/14/19 06/14/19 06/14/19 08:46 09:00 09:15 Temperature Pulse Rate 85 88 87 Pulse Rate [ Bilateral] Pulse Rate [ Dorsalis Pedis] Pulse Rate [ From Monitor] Pulse Rate [ Radial] Respiratory 16 20 15 Rate Respiratory Rate [Bilateral ] Blood Pressure 131/61 131/61 121/66 O2 Sat by Pulse 95 95 95 Oximetry 06/14/19 06/14/19 06/14/19 09:31 09:45 10:00 Temperature Pulse Rate 84 88 82 Pulse Rate [ Bilateral] Pulse Rate [ Dorsalis Pedis] Pulse Rate [ From Monitor] Pulse Rate [ Radial] Respiratory 19 20 19 Rate Respiratory Rate [Bilateral ] Blood Pressure 126/64 121/66 131/60 O2 Sat by Pulse 95 96 96 Oximetry 06/14/19 06/14/19 06/14/19 10:16 10:30 10:35 Temperature Pulse Rate 89 93 H 99 H Pulse Rate [ Bilateral] Pulse Rate [ Dorsalis Pedis] Pulse Rate [ From Monitor] Pulse Rate [ Radial] Respiratory 16 20 Rate Respiratory Rate [Bilateral ] Blood Pressure 125/64 125/64 121/64 O2 Sat by Pulse 95 Oximetry 06/14/19 06/14/19 06/14/19 10:46 11:00 11:16 Temperature Pulse Rate 104 H 110 H 114 H Pulse Rate [ Bilateral] Pulse Rate [ Dorsalis Pedis] Pulse Rate [ From Monitor] Pulse Rate [ Radial] Respiratory 20 20 19 Rate Respiratory Rate [Bilateral ] Blood Pressure 124/66 121/68 120/68 O2 Sat by Pulse 94 93 93 Oximetry 06/14/19 06/14/19 06/14/19 11:30 11:46 11:47 Temperature Pulse Rate 115 H 111 H Pulse Rate [ Bilateral] Pulse Rate [ 112 H Dorsalis Pedis] Pulse Rate [ 112 H From Monitor] Pulse Rate [ 112 H Radial] Respiratory 21 20 20 Rate Respiratory Rate [Bilateral ] Blood Pressure 112/63 116/59 O2 Sat by Pulse 93 93 100 Oximetry 06/14/19 06/14/19 06/14/19 12:00 12:04 12:13 Temperature 98.4 F Pulse Rate 111 H 110 H 105 H Pulse Rate [ Bilateral] Pulse Rate [ Dorsalis Pedis] Pulse Rate [ From Monitor] Pulse Rate [ Radial] Respiratory 19 Rate Respiratory Rate [Bilateral ] Blood Pressure 114/56 114/56 114/56 O2 Sat by Pulse 93 94 Oximetry 06/14/19 06/14/19 06/14/19 12:16 12:30 12:46 Temperature Pulse Rate 108 H 103 H 100 H Pulse Rate [ Bilateral] Pulse Rate [ Dorsalis Pedis] Pulse Rate [ From Monitor] Pulse Rate [ Radial] Respiratory 20 23 20 Rate Respiratory Rate [Bilateral ] Blood Pressure 109/63 114/66 112/59 O2 Sat by Pulse 94 95 94 Oximetry 06/14/19 06/14/19 06/14/19 13:00 13:16 13:30 Temperature Pulse Rate 91 H 91 H 88 Pulse Rate [ Bilateral] Pulse Rate [ Dorsalis Pedis] Pulse Rate [ From Monitor] Pulse Rate [ Radial] Respiratory 19 20 20 Rate Respiratory Rate [Bilateral ] Blood Pressure 105/58 112/62 107/58 O2 Sat by Pulse 95 95 94 Oximetry Constitutional: no acute distress, other (elderly looking obese CF, normocephalic on MVS without signidficant dyssynchrony) Eyes: non-icteric ENT: oropharynx moist, other (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) Neck: supple, no lymphadenopathy, no JVD Effort: mildly labored Ascultation: Bilateral: diminished breath sounds, rhonchi Percussion: Bilateral: not dull Cardiovascular: regular rate and rhythm Gastrointestinal: normoactive bowel sounds, soft, non-tender, non-distended Integumentary: normal Extremities: no cyanosis, no edema, pulses normal, no ischemia or petechiae Neurologic: non-focal exam (grossly), pupils equal and round, unable to assess Psychiatric: other (Unable to assess re: AMS) CBC and BMP: 06/13/19 04:54 06/15/19 05:08 ABG, PT/INR, D-dimer: ABG ABG pH 7.367 pH Units (7.350-7.450) 06/14/19 03:44 ABG pCO2 52.5 mm Hg 06/14/19 03:44 ABG pO2 58.9 mm Hg (80.0-90.0) L 06/14/19 03:44 ABG O2 Saturation 88.7 % (95.0-99.0) L 06/14/19 03:44 PT/INR, D-dimer PT 13.0 Sec. (12.2-14.9) 06/11/19 18:03 INR 0.97 (0.87-1.13) 06/11/19 18:03 Abnormal lab findings: Abnormal Labs 06/11/19 06/11/19 06/11/19 18:03 18:03 18:03 MCH 25 L RDW 19.4 H Plt Count 124 L [place] % (Auto) 10.3 H Lymph # 1.1 L Seg Neutrophils % 74.4 H Seg Neuts % (Manual) Lymphocytes % (Manual) Seg Neutrophils # Man Lymphocytes # (Manual) ABG pH ABG pO2 ABG HCO3 ABG O2 Saturation ABG Base Excess ABG Hemoglobin Oxyhemoglobin Sodium 146 H Chloride BUN 21 H Creatinine 0.4 L Glucose POC Glucose Calcium Magnesium 2.70 H CK-MB (CK-2) CK-MB (CK-2) Rel Index Albumin 3.5 L Urine WBC (Auto) Salicylates 1.0 L Acetaminophen 06/11/19 06/11/19 06/11/19 18:03 18:59 23:22 MCH RDW Plt Count [place] % (Auto) Lymph # Seg Neutrophils % Seg Neuts % (Manual) Lymphocytes % (Manual) Seg Neutrophils # Man Lymphocytes # (Manual) ABG pH 7.340 L ABG pO2 76.0 L ABG HCO3 34.6 H ABG O2 Saturation ABG Base Excess 7.1 H ABG Hemoglobin 10.9 L Oxyhemoglobin 91.6 L Sodium Chloride BUN Creatinine Glucose POC Glucose Calcium Magnesium CK-MB (CK-2) 5.5 H CK-MB (CK-2) Rel Index 5.5 H Albumin Urine WBC (Auto) Salicylates Acetaminophen < 5.0 L 06/12/19 06/12/19 06/12/19 00:29 02:04 04:20 MCH RDW Plt Count [place] % (Auto) Lymph # Seg Neutrophils % Seg Neuts % (Manual) Lymphocytes % (Manual) Seg Neutrophils # Man Lymphocytes # (Manual) ABG pH 7.313 L ABG pO2 75.3 L ABG HCO3 29.9 H ABG O2 Saturation 94.3 L ABG Base Excess ABG Hemoglobin 10.8 L Oxyhemoglobin 92.0 L Sodium Chloride BUN Creatinine Glucose POC Glucose 107 H Calcium Magnesium CK-MB (CK-2) CK-MB (CK-2) Rel Index Albumin Urine WBC (Auto) 30.0 H Salicylates Acetaminophen 04/25/20 04/25/20 04/25/20 05:09 05:09 05:09 MCH 25 L RDW 19.4 H Plt Count 114 L [place] % (Auto) Lymph # Seg Neutrophils % Seg Neuts % (Manual) 91.0 H Lymphocytes % (Manual) 7.0 L Seg Neutrophils # Man Lymphocytes # (Manual) 0.4 L ABG pH ABG pO2 ABG HCO3 ABG O2 Saturation ABG Base Excess ABG Hemoglobin Oxyhemoglobin Sodium 147 H Chloride 107.4 H BUN 19 H Creatinine 0.4 L Glucose 110 H POC Glucose Calcium 8.2 L Magnesium CK-MB (CK-2) CK-MB (CK-2) Rel Index 5.4 H Albumin Urine WBC (Auto) Salicylates Acetaminophen 06/12/19 06/12/19 06/13/19 06:42 23:21 04:14 MCH RDW Plt Count [place] % (Auto) Lymph # Seg Neutrophils % Seg Neuts % (Manual) Lymphocytes % (Manual) Seg Neutrophils # Man Lymphocytes # (Manual) ABG pH ABG pO2 62.6 L ABG HCO3 29.6 H ABG O2 Saturation 91.0 L ABG Base Excess ABG Hemoglobin 10.3 L Oxyhemoglobin 89.0 L Sodium Chloride BUN Creatinine Glucose POC Glucose 108 H 106 H Calcium Magnesium CK-MB (CK-2) CK-MB (CK-2) Rel Index Albumin Urine WBC (Auto) Salicylates Acetaminophen 06/13/19 06/13/19 06/13/19 04:54 04:54 12:20 MCH 25 L RDW 19.2 H Plt Count 119 L [place] % (Auto) Lymph # Seg Neutrophils % Seg Neuts % (Manual) 95.0 H Lymphocytes % (Manual) 2.0 L Seg Neutrophils # Man 9.1 H Lymphocytes # (Manual) 0.2 L ABG pH ABG pO2 ABG HCO3 ABG O2 Saturation ABG Base Excess ABG Hemoglobin Oxyhemoglobin Sodium 149 H Chloride 111.4 H BUN 26 H Creatinine 0.5 L Glucose 107 H POC Glucose 125 H Calcium Magnesium CK-MB (CK-2) CK-MB (CK-2) Rel Index Albumin Urine WBC (Auto) Salicylates Acetaminophen 06/13/19 06/14/19 06/14/19 17:25 03:44 04:55 MCH RDW Plt Count [place] % (Auto) Lymph # Seg Neutrophils % Seg Neuts % (Manual) Lymphocytes % (Manual) Seg Neutrophils # Man Lymphocytes # (Manual) ABG pH ABG pO2 58.9 L ABG HCO3 29.5 H ABG O2 Saturation 88.7 L ABG Base Excess ABG Hemoglobin 10.2 L Oxyhemoglobin 86.7 L Sodium 150 H Chloride 110.4 H BUN 20 H Creatinine 0.4 L Glucose 105 H POC Glucose 128 H Calcium Magnesium CK-MB (CK-2) CK-MB (CK-2) Rel Index Albumin Urine WBC (Auto) Salicylates Acetaminophen 06/14/19 06/14/19 05:37 11:58 MCH RDW Plt Count [place] % (Auto) Lymph # Seg Neutrophils % Seg Neuts % (Manual) Lymphocytes % (Manual) Seg Neutrophils # Man Lymphocytes # (Manual) ABG pH ABG pO2 ABG HCO3 ABG O2 Saturation ABG Base Excess ABG Hemoglobin Oxyhemoglobin Sodium Chloride BUN Creatinine Glucose POC Glucose 111 H 116 H Calcium Magnesium CK-MB (CK-2) CK-MB (CK-2) Rel Index Albumin Urine WBC (Auto) Salicylates Acetaminophen Chest x-ray: image reviewed (ETT tip appears in good position) Allied health notes reviewed: nursing
[2019-06-14] MEDS: fentaNYL DRIP Premix 2,000 MCG/100 ML BAG IV SCH (18:33)
[2019-06-14] MEDS: ARFORMOTEROL 15 MCG/2 ML NEBU IH SCH (20:20)
[2019-06-14] MEDS: BUDESONIDE 0.5 MG/2 ML NEBU IH SCH (20:20)
[2019-06-14] MEDS: ENOXAPARIN 40 MG/0.4 ML INJ SUB-Q SCH (21:09)
[2019-06-14 21:14] LABS: ABG Base Excess 4.1 mmol/L (-2.0-3.0); ABG HCO3 31.4 mmol/L (20.0-26.0); ABG Methemoglobin 0.8 % (0.0-1.5); ABG Oxygen Saturation 87.3 % (95.0-99.0); ABG PCO2 62.3 mm Hg; ABG PH 7.321 pH Units (7.350-7.450)
[2019-06-15] MEDS: dilTIAZem 30 MG TAB PO SCH
[2019-06-15] MEDS: INSULIN LISPRO 100 UNIT/ML SUB-Q SCH ×5 (01:07→17:35)
[2019-06-15] MEDS: methylPREDNISolone Sod Succinate 125 MG/2 ML INJ IV SCH ×4 (03:10→17:34)
--- NOTE | 2019-06-15 03:10 | XRay Report ---
CHEST 1 VIEW 0211 INDICATION / CLINICAL INFORMATION: follow up respiratory failure. COMPARISON: 06/14/2019 FINDINGS: SUPPORT DEVICES: Stable HEART / MEDIASTINUM: Stable LUNGS / PLEURA: Left basilar density continues without significant change. No pneumothorax. ADDITIONAL FINDINGS: No significant additional findings. IMPRESSION: No significant changes Signer Name: Alex Shay MD Signed: 06/15/2019 3:06 AM Workstation Name: [id number]
[2019-06-15 03:48] LABS: ABG Base Excess 4.1 mmol/L (-2.0-3.0); ABG HCO3 31.5 mmol/L (20.0-26.0); ABG Methemoglobin 0.4 % (0.0-1.5); ABG Oxygen Saturation 96.3 % (95.0-99.0); ABG PCO2 62.9 mm Hg; ABG PH 7.317 pH Units (7.350-7.450); ABG PO2 87.4 mm Hg (80.0-90.0)
[2019-06-15 06:09] LABS: BUN/Creatinine Ratio 77; Blood Urea Nitrogen 23 mg/dL (7-17); Calcium 8.6 mg/dL (8.4-10.2); Hemolysis Index 54
[2019-06-15] MEDS: CEFEPIME/NS 1 GM/100 ML 1 GM/100 ML BAG IV SCH ×3 (06:17→22:21)
[2019-06-15] MEDS: VENLAFAXINE 75 MG TAB PO SCH ×3 (08:10→22:21)
[2019-06-15] MEDS: ARFORMOTEROL 15 MCG/2 ML NEBU IH SCH ×2 (08:14→19:38)
[2019-06-15] MEDS: BUDESONIDE 0.5 MG/2 ML NEBU IH SCH ×2 (08:14→19:38)
[2019-06-15] MEDS: IPRATROPIUM/ALBUTEROL SULFATE 3 ML AMPUL.NEB IH SCH ×4 (08:15→19:38)
[2019-06-15] MEDS: FUROSEMIDE 20 MG/2 ML INJ IV SCH (09:16)
[2019-06-15] MEDS: LANSOPRAZOLE 30 MG SOLUTAB FEEDTUBE SCH (09:16)
[2019-06-15] MEDS: QUEtiapine 100 MG TAB PO SCH ×2 (09:17→22:21)
[2019-06-15] MEDS: LISINOPRIL 10 MG TAB PO SCH (09:17)
--- NOTE | 2019-06-15 09:29 | Progress Note ---
Assessment and Plan Paroxysmal Atrial flutter/afib/MAT currently in sinus rhythm on diltiazem for suppression not on anticoagulation secondary to history of melena and anemia. 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 She did undergo PCI of the mid LAD using bare metal stent. Recommend: Continue medical therapy for suppression of paroxysmal atrial fibrillation and atrial flutter. Subjective Date of service: 06/15/19 Principal diagnosis: Ac and ch hypoxic & hypercapnic resp failure; AE-COPD; Tobacco use disorder Interval history: Patient remains intubated on the ventilator. Stable sinus rhythm on telemetry. Objective Vital Signs Temp Pulse Pulse Pulse Pulse Pulse Resp 06/15/19 09:17 112 H 06/15/19 09:00 107 H 12 06/15/19 08:46 102 H 12 06/15/19 08:30 111 H 12 06/15/19 08:16 113 H 12 06/15/19 08:00 97.9 F 90 111 H 12 06/15/19 07:45 89 12 06/15/19 07:30 87 12 06/15/19 07:15 89 12 06/15/19 07:00 88 12 06/15/19 06:45 89 13 06/15/19 06:30 87 12 06/15/19 06:15 94 H 11 L 06/15/19 06:00 90 12 06/15/19 05:45 93 H 12 06/15/19 05:30 102 H 12 06/15/19 05:15 95 H 14 06/15/19 05:00 91 H 11 L 06/15/19 04:45 91 H 13 06/15/19 04:30 92 H 16 06/15/19 04:15 89 12 06/15/19 04:00 104 H 89 97 H 97 H 14 06/15/19 03:45 105 H 12 06/15/19 03:35 103 H 06/15/19 03:30 105 H 14 06/15/19 03:15 109 H 14 06/15/19 03:14 97.4 F L 06/15/19 03:00 108 H 16 06/15/19 02:45 110 H 19 06/15/19 02:30 121 H 12 06/15/19 02:15 107 H 16 06/15/19 02:00 111 H 20 06/15/19 01:45 110 H 20 06/15/19 01:30 110 H 16 06/15/19 01:15 108 H 12 06/15/19 01:00 111 H 12 06/15/19 00:45 110 H 18 06/15/19 00:30 110 H 15 06/15/19 00:15 109 H 21 06/15/19 00:03 110 H 06/15/19 00:00 100 H 97 H 97 H 97 H 14 06/14/19 23:45 111 H 16 06/14/19 23:30 109 H 17 06/14/19 23:28 98.8 F 06/14/19 23:15 111 H 13 06/14/19 23:00 114 H 13 06/14/19 22:45 118 H 14 06/14/19 22:30 123 H 13 06/14/19 22:15 134 H 15 06/14/19 22:00 131 H 15 06/14/19 21:46 132 H 12 06/14/19 21:30 124 H 12 06/14/19 21:16 113 H 14 06/14/19 21:02 111 H 12 06/14/19 21:00 110 H 13 06/14/19 20:46 96 H 16 06/14/19 20:30 92 H 11 L 06/14/19 20:23 103 H 06/14/19 20:16 91 H 12 06/14/19 20:11 91 H 06/14/19 20:00 98.3 F 90 97 H 97 H 97 H 12 06/14/19 19:45 92 H 12 06/14/19 19:30 94 H 18 06/14/19 19:16 105 H 13 06/14/19 19:00 105 H 12 06/14/19 18:46 105 H 14 06/14/19 18:30 110 H 14 06/14/19 18:16 114 H 12 06/14/19 18:04 115 H 06/14/19 18:00 108 H 11 L 06/14/19 17:46 112 H 13 06/14/19 17:30 106 H 12 06/14/19 17:16 108 H 11 L 06/14/19 17:00 108 H 12 06/14/19 16:46 109 H 12 06/14/19 16:30 110 H 12 06/14/19 16:16 113 H 13 06/14/19 16:00 98.4 F 111 H 12 06/14/19 15:46 91 H 12 06/14/19 15:30 98.4 F 84 12 06/14/19 15:16 87 20 06/14/19 15:00 84 112 H 112 H 112 H 21 06/14/19 14:46 84 20 06/14/19 14:30 89 20 06/14/19 14:18 86 06/14/19 14:16 85 20 06/14/19 14:00 84 20 06/14/19 13:46 85 20 06/14/19 13:30 88 20 06/14/19 13:16 91 H 20 06/14/19 13:00 91 H 19 06/14/19 12:46 100 H 20 06/14/19 12:30 103 H 23 06/14/19 12:16 108 H 20 06/14/19 12:13 105 H 06/14/19 12:04 110 H 06/14/19 12:00 98.4 F 111 H 19 06/14/19 11:47 112 H 112 H 112 H 20 06/14/19 11:46 111 H 20 06/14/19 11:30 115 H 21 06/14/19 11:16 114 H 19 06/14/19 11:00 110 H 20 06/14/19 10:46 104 H 20 06/14/19 10:35 99 H 06/14/19 10:30 93 H 20 06/14/19 10:16 89 16 06/14/19 10:00 82 19 06/14/19 09:45 88 20 06/14/19 09:31 84 19 Resp BP Pulse Ox 06/15/19 09:17 106/57 06/15/19 09:00 105/59 89 06/15/19 08:46 104/57 85 06/15/19 08:30 114/61 95 06/15/19 08:16 127/73 94 06/15/19 08:00 12 113/64 98 06/15/19 07:45 110/61 98 06/15/19 07:30 115/62 98 06/15/19 07:15 109/63 98 06/15/19 07:00 114/61 98 06/15/19 06:45 107/63 99 06/15/19 06:30 106/57 98 06/15/19 06:15 110/60 98 06/15/19 06:00 105/59 98 06/15/19 05:45 109/55 99 06/15/19 05:30 103/56 98 06/15/19 05:15 107/55 99 06/15/19 05:00 103/48 98 06/15/19 04:45 105/47 98 06/15/19 04:30 93/45 97 06/15/19 04:15 95/46 97 06/15/19 04:00 104/50 97 06/15/19 03:45 101/49 98 06/15/19 03:35 101/49 97 06/15/19 03:30 107/48 97 06/15/19 03:15 102/51 97 06/15/19 03:14 06/15/19 03:00 95/47 97 06/15/19 02:45 101/50 95 06/15/19 02:30 115/52 91 06/15/19 02:15 100/49 95 06/15/19 02:00 99/49 92 06/15/19 01:45 97/49 93 06/15/19 01:30 90/49 91 06/15/19 01:15 93/49 92 06/15/19 01:00 98/48 94 06/15/19 00:45 98/49 96 06/15/19 00:30 96/46 96 06/15/19 00:15 93/44 93 06/15/19 00:03 106/58 92 06/15/19 00:00 88/45 95 06/14/19 23:45 92/43 92 06/14/19 23:30 88/44 97 06/14/19 23:28 06/14/19 23:15 83/40 95 06/14/19 23:00 85/37 96 06/14/19 22:45 73/37 94 06/14/19 22:30 72/35 93 06/14/19 22:15 82/38 94 06/14/19 22:00 82/35 94 06/14/19 21:46 86/40 94 06/14/19 21:30 92/36 90 06/14/19 21:16 102/53 96 06/14/19 21:02 106/58 93 06/14/19 21:00 106/58 92 06/14/19 20:46 104/49 89 06/14/19 20:30 99/54 97 06/14/19 20:23 12 06/14/19 20:16 101/52 93 06/14/19 20:11 99/48 93 06/14/19 20:00 99/49 93 06/14/19 19:45 103/52 92 06/14/19 19:30 99/50 92 06/14/19 19:16 105/56 95 06/14/19 19:00 105/56 91 06/14/19 18:46 100/55 87 06/14/19 18:30 105/58 87 06/14/19 18:16 107/57 84 06/14/19 18:04 113/56 93 06/14/19 18:00 113/56 84 06/14/19 17:46 110/62 84 06/14/19 17:30 109/52 85 06/14/19 17:16 109/57 87 06/14/19 17:00 105/57 87 06/14/19 16:46 112/55 88 06/14/19 16:30 115/58 93 06/14/19 16:16 119/64 93 06/14/19 16:00 116/66 92 06/14/19 15:46 121/61 92 06/14/19 15:30 121/61 94 06/14/19 15:16 114/63 94 06/14/19 15:00 118/61 95 06/14/19 14:46 118/61 94 06/14/19 14:30 109/62 94 06/14/19 14:18 20 06/14/19 14:16 110/62 95 06/14/19 14:00 110/62 94 06/14/19 13:46 109/60 94 06/14/19 13:30 107/58 94 06/14/19 13:16 112/62 95 06/14/19 13:00 105/58 95 06/14/19 12:46 112/59 94 06/14/19 12:30 114/66 95 06/14/19 12:16 109/63 94 06/14/19 12:13 114/56 94 06/14/19 12:04 114/56 06/14/19 12:00 114/56 93 06/14/19 11:47 100 06/14/19 11:46 116/59 93 06/14/19 11:30 112/63 93 06/14/19 11:16 120/68 93 06/14/19 11:00 121/68 93 06/14/19 10:46 124/66 94 06/14/19 10:35 121/64 06/14/19 10:30 125/64 06/14/19 10:16 125/64 95 06/14/19 10:00 131/60 96 06/14/19 09:45 121/66 96 06/14/19 09:31 126/64 95 - Physical Examination General: Other (intubated on the vent) Cardiac: Positive: Reg Rate and Rhythm - Labs and Meds Comprehensive Metabolic Panel 06/15/19 Range/Units 05:08 Sodium 145 (137-145) mmol/L Potassium 4.1 (3.6-5.0) mmol/L Chloride 106.6 (98-107) mmol/L Carbon Dioxide 31 H (22-30) mmol/L BUN 23 H (7-17) mg/dL Creatinine 0.3 L (0.7-1.2) mg/dL Glucose 120 H (65-100) mg/dL Calcium 8.6 (8.4-10.2) mg/dL
--- NOTE | 2019-06-15 09:32 | Progress Note ---
Assessment and Plan Assessment and plan: --Hypernatremia; resolved free water flushes via Dobbhoff monitor sodium levels --Left lung basilar density; no change to follow-up x-ray Continue empiric antibiotics follow cultures Sputum cultures positive for Pseudomonas --Tube feeding diet; per dietary recommendations --Episode of SVT; This morning patient is in sinus rhythm heart rate in 90s Continue Cardizem, cardiology following --Cardiac arrhythmia/possible a flutter with Cardizem. Cardiology started digoxin. 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 The aggregate critical care time was [32] minutes. This time is in addition to time spent performing reported procedures but includes the following: [x] Data Review and interpretation [x] Patient assessment and monitoring of vital signs [x] Documentation [x] Medication orders and management Critical care time 40 minutes History Interval history: Patient seen and examined this morning at bedside in ICU Patient had heart rate in 140s to 150s Cardiology recommended digoxin and Cardizem Patient remains intubated on ventilatory support In mild distress,Vital signs reviewed Hospitalist Physical - Constitutional Vitals: Temp Pulse Resp BP Pulse Ox 97.9 F 112 H 12 106/57 89 06/15/19 08:00 06/15/19 09:17 06/15/19 09:00 06/15/19 09:17 06/15/19 09:00 General appearance: Present: no acute distress, well-nourished, obese, other (Intubated on ventilatory support sedated) - EENT Eyes: Present: PERRL, EOM intact - Neck Neck: Present: supple, normal ROM - Respiratory Respiratory effort: normal Respiratory: bilateral: diminished, rhonchi, wheezing, negative: rales - Cardiovascular Rhythm: regular Heart Sounds: Present: S1 & S2 (Tachycardia) - Extremities Extremities: no ischemia, No edema - Abdominal General gastrointestinal: soft, non-tender, non-distended, normal bowel sounds - Integumentary Integumentary: Present: clear, warm - Psychiatric Psychiatric: other (Intubated on vent) - Neurologic Neurologic: other (Intubated on vent) Results - Labs CBC & Chem 7: 06/13/19 04:54 06/15/19 05:08 Labs: Laboratory Last Values WBC 9.6 K/mm3 (4.5-11.0) 06/13/19 04:54 RBC 4.23 M/mm3 (3.65-5.03) 06/13/19 04:54 Hgb 10.5 gm/dl (10.1-14.3) 06/13/19 04:54 Hct 35.4 % (30.3-42.9) 06/13/19 04:54 MCV 84 fl (79-97) 06/13/19 04:54 MCH 25 pg (28-32) L 06/13/19 04:54 MCHC 30 % (30-34) 06/13/19 04:54 RDW 19.2 % (13.2-15.2) H 06/13/19 04:54 Plt Count 119 K/mm3 (140-440) L 06/13/19 04:54 Lymph % (Auto) 13.7 % (13.4-35.0) 06/11/19 18:03 [place] % (Auto) 10.3 % (0.0-7.3) H 06/11/19 18:03 Eos % (Auto) 0.8 % (0.0-4.3) 06/11/19 18:03 Baso % (Auto) 0.8 % (0.0-1.8) 06/11/19 18:03 Lymph # 1.1 K/mm3 (1.2-5.4) L 06/11/19 18:03 [place] # 0.8 K/mm3 (0.0-0.8) 06/11/19 18:03 Eos # 0.1 K/mm3 (0.0-0.4) 06/11/19 18:03 Baso # 0.1 K/mm3 (0.0-0.1) 06/11/19 18:03 Add Manual Diff Complete 06/13/19 04:54 Total Counted 100 06/13/19 04:54 Seg Neutrophils % Media Strategist 06/13/19 04:54 Seg Neuts % (Manual) 95.0 % (40.0-70.0) H 06/13/19 04:54 Band Neutrophils % 0 % 06/13/19 04:54 Lymphocytes % (Manual) 2.0 % (13.4-35.0) L 06/13/19 04:54 Reactive Lymphs % (Man) 0 % 06/13/19 04:54 Monocytes % (Manual) 3.0 % (0.0-7.3) 06/13/19 04:54 Eosinophils % (Manual) 0 % (0.0-4.3) 06/13/19 04:54 Basophils % (Manual) 0 % (0.0-1.8) 06/13/19 04:54 Metamyelocytes % 0 % 06/13/19 04:54 Myelocytes % 0 % 06/13/19 04:54 Promyelocytes % 0 % 06/13/19 04:54 Blast Cells % 0 % 06/13/19 04:54 Nucleated RBC % Not Reportable 06/13/19 04:54 Seg Neutrophils # 6.0 K/mm3 (1.8-7.7) 06/11/19 18:03 Seg Neutrophils # Man 9.1 K/mm3 (1.8-7.7) H 06/13/19 04:54 Band Neutrophils # 0.0 K/mm3 06/13/19 04:54 Lymphocytes # (Manual) 0.2 K/mm3 (1.2-5.4) L 06/13/19 04:54 Abs React Lymphs (Man) 0.0 K/mm3 06/13/19 04:54 Monocytes # (Manual) 0.3 K/mm3 (0.0-0.8) 06/13/19 04:54 Eosinophils # (Manual) 0.0 K/mm3 (0.0-0.4) 06/13/19 04:54 Basophils # (Manual) 0.0 K/mm3 (0.0-0.1) 06/13/19 04:54 Metamyelocytes # 0.0 K/mm3 06/13/19 04:54 Myelocytes # 0.0 K/mm3 06/13/19 04:54 Promyelocytes # 0.0 K/mm3 06/13/19 04:54 Blast Cells # 0.0 K/mm3 06/13/19 04:54 WBC Morphology Not Reportable 06/13/19 04:54 Hypersegmented Neuts Not Reportable 06/13/19 04:54 Hyposegmented Neuts Not Reportable 06/13/19 04:54 Hypogranular Neuts Not Reportable 06/13/19 04:54 Smudge Cells Not Reportable 06/13/19 04:54 Toxic Granulation Not Reportable 06/13/19 04:54 Toxic Vacuolation Not Reportable 06/13/19 04:54 Dohle Bodies Not Reportable 06/13/19 04:54 Pelger-Huet Anomaly Not Reportable 06/13/19 04:54 Neha Rods Not Reportable 06/13/19 04:54 Platelet Estimate Consistent w auto 06/13/19 04:54 Clumped Platelets Not Reportable 06/13/19 04:54 Plt Clumps, EDTA Not Reportable 06/13/19 04:54 Large Platelets Not Reportable 06/13/19 04:54 Giant Platelets Not Reportable 06/13/19 04:54 Platelet Satelliting Not Reportable 06/13/19 04:54 Plt Morphology Comment Not Reportable 06/13/19 04:54 RBC Morphology Not Reportable 06/13/19 04:54 Dimorphic RBCs Not Reportable 06/13/19 04:54 Polychromasia Not Reportable 06/13/19 04:54 Hypochromasia Few 06/13/19 04:54 Poikilocytosis Not Reportable 06/13/19 04:54 Anisocytosis Not Reportable 06/13/19 04:54 Microcytosis Not Reportable 06/13/19 04:54 Macrocytosis Not Reportable 06/13/19 04:54 Spherocytes Rare 06/13/19 04:54 Pappenheimer Bodies Not Reportable 06/13/19 04:54 Sickle Cells Not Reportable 06/13/19 04:54 Target Cells Not Reportable 06/13/19 04:54 Tear Drop Cells Not Reportable 06/13/19 04:54 Ovalocytes Rare 06/13/19 04:54 Helmet Cells Not Reportable 06/13/19 04:54 Benoit-O[place]ineke Bodies Not Reportable 06/13/19 04:54 Randle Rings Not Reportable 06/13/19 04:54 Damien Cells Not Reportable 06/13/19 04:54 Bite Cells Not Reportable 06/13/19 04:54 Crenated Cell Not Reportable 06/13/19 04:54 Elliptocytes Not Reportable 06/13/19 04:54 Acanthocytes (Spur) Not Reportable 06/13/19 04:54 Rouleaux Not Reportable 06/13/19 04:54 Hemoglobin C Crystals Not Reportable 06/13/19 04:54 Schistocytes Not Reportable 06/13/19 04:54 Malaria parasites Not Reportable 06/13/19 04:54 Hernan Bodies Not Reportable 06/13/19 04:54 Hem Pathologist Commnt No 06/13/19 04:54 PT 13.0 Sec. (12.2-14.9) 06/11/19 18:03 INR 0.97 (0.87-1.13) 06/11/19 18:03 ABG pH 7.317 pH Units (7.350-7.450) L 06/15/19 03:25 ABG pCO2 62.9 mm Hg 06/15/19 03:25 ABG pO2 87.4 mm Hg (80.0-90.0) 06/15/19 03:25 ABG HCO3 31.5 mmol/L (20.0-26.0) H 06/15/19 03:25 ABG O2 Saturation 96.3 % (95.0-99.0) 06/15/19 03:25 ABG O2 Content 13.8 (0.0-44) 06/15/19 03:25 ABG Base Excess 4.1 mmol/L (-2.0-3.0) H 06/15/19 03:25 ABG Hemoglobin 10.4 gm/dl (12.0-16.0) L 06/15/19 03:25 ABG Carboxyhemoglobin 1.9 % (0.0-5.0) 06/15/19 03:25 ABG Methemoglobin 0.4 % (0.0-1.5) 06/15/19 03:25 Oxyhemoglobin 94.1 % (95.0-99.0) L 06/15/19 03:25 FiO2 50 % 06/15/19 03:25 Sodium 145 mmol/L (137-145) 06/15/19 05:08 Potassium 4.1 mmol/L (3.6-5.0) 06/15/19 05:08 Chloride 106.6 mmol/L (98-107) 06/15/19 05:08 Carbon Dioxide 31 mmol/L (22-30) H 06/15/19 05:08 Anion Gap 12 mmol/L 06/15/19 05:08 BUN 23 mg/dL (7-17) H 06/15/19 05:08 Creatinine 0.3 mg/dL (0.7-1.2) L 06/15/19 05:08 Estimated GFR > 60 ml/min 06/15/19 05:08 BUN/Creatinine Ratio 77 % 06/15/19 05:08 Glucose 120 mg/dL (65-100) H 06/15/19 05:08 POC Glucose 111 (70-105) H 06/15/19 05:24 Calcium 8.6 mg/dL (8.4-10.2) 06/15/19 05:08 Phosphorus 4.50 mg/dL (2.5-4.5) 06/15/19 05:08 Magnesium 2.20 mg/dL (1.7-2.3) 06/15/19 05:08 Total Bilirubin 0.30 mg/dL (0.1-1.2) 06/11/19 18:03 AST 14 units/L (5-40) 06/11/19 18:03 ALT 8 units/L (7-56) 06/11/19 18:03 Alkaline Phosphatase 85 units/L (35-129) 06/11/19 18:03 Total Creatine Kinase 74 units/L (30-135) 06/12/19 05:09 CK-MB (CK-2) 4.0 ng/mL (0.0-4.0) 06/12/19 05:09 CK-MB (CK-2) Rel Index 5.4 (0-4) H 06/12/19 05:09 Troponin T < 0.010 ng/mL (0.00-0.029) 06/12/19 05:09 Total Protein 6.4 g/dL (6.3-8.2) 06/11/19 18:03 Albumin 3.5 g/dL (3.9-5) L 06/11/19 18:03 Albumin/Globulin Ratio 1.2 % 06/11/19 18:03 Urine Color Yellow (Yellow) 06/12/19 02:04 Urine Turbidity Clear (Clear) 06/12/19 02:04 Urine pH 5.0 (5.0-7.0) 06/12/19 02:04 Ur Specific Mcdowell 1.027 (1.003-1.030) 06/12/19 02:04 Urine Protein 30 mg/dl mg/dL (Negative) 06/12/19 02:04 Urine Glucose (UA) Neg mg/dL (Negative) 06/12/19 02:04 Urine Ketones 80 mg/dL (Negative) 06/12/19 02:04 Urine Blood Lg (Negative) 06/12/19 02:04 Urine Nitrite Neg (Negative) 06/12/19 02:04 Urine Bilirubin Neg (Negative) 06/12/19 02:04 Urine Urobilinogen 2.0 mg/dL (<2.0) 06/12/19 02:04 Ur Leukocyte Esterase Neg (Negative) 06/12/19 02:04 Urine WBC (Auto) 30.0 /HPF (0.0-6.0) H 06/12/19 02:04 Urine RBC (Auto) > 182.0 /HPF (0.0-6.0) 06/12/19 02:04 Urine Bacteria (Auto) 1+ /HPF (Negative) 06/12/19 02:04 Urine Mucus 3+ /HPF 06/12/19 02:04 Urine Yeast (Budding) Few /HPF 06/12/19 02:04 Salicylates 1.0 mg/dL (2.8-20.0) L 06/11/19 18:03 Acetaminophen < 5.0 ug/mL (10.0-30.0) L 06/11/19 18:03 Microbiology: Microbiology 06/11/19 19:19 Peripheral/Venous Blood Culture - Preliminary NO GROWTH AFTER 72 HOURS 06/11/19 19:16 Peripheral/Venous Blood Culture - Preliminary NO GROWTH AFTER 72 HOURS 06/11/19 20:50 Tracheal Aspirate Sputum Culture - Final Pseudomonas Aeruginosa 06/11/19 Unknown Urine,Clean Catch Urine Culture - Final NO GROWTH AFTER 48 HOURS Harley/IV: Voiding Method Indwelling Catheter IV Catheter Type [Left Peripheral IV Antecubital] IV Catheter Type [Right Wrist] Peripheral IV IV Catheter Type [Right Hand] Peripheral IV Active Medications - Current Medications Current Medications: Generic Name Dose Route Start Last Admin Trade Name Freq PRN Reason Stop Dose Admin Acetaminophen 650 mg 06/11/19 22:48 Tylenol PO Q4H PRN Pain MILD(1-3)/Fever >100.5/PRAJAPATI Albuterol 2.5 mg 06/14/19 08:20 Proventil IH Q4HRT PRN Shortness Of Breath Albuterol/Ipratropium 1 ampul 06/14/19 14:00 06/15/19 08:15 Duoneb *Not For Prn Use* IH 1 ampul TIDRT DOMINICK Administration Alprazolam 0.25 mg 06/13/19 10:23 06/13/19 23:32 Xanax PO 0.25 mg Q8H PRN Administration Anxiety Lipase/Protease/Amylase 1 each 06/13/19 17:52 Pancreaze 10,500 Unit FEEDTUBE PRN PRN For Clogged Feeding Tube Arformoterol Tartrate 15 mcg 06/14/19 20:00 06/15/19 08:14 Brovana Nebu IH 15 mcg Q12HRT DOMINICK Administration Budesonide 0.5 mg 06/14/19 20:00 06/15/19 08:14 Pulmicort IH 0.5 mg Q12HRT DOMINICK Administration Dextrose 50 ml 06/11/19 22:48 D50w (25gm) Syringe IV Q30MIN PRN Hypoglycemia Protocol Diltiazem HCl 30 mg 06/13/19 12:00 06/15/19 00:00 Cardizem PO Not Given Q12H DOMINICK Enoxaparin Sodium 40 mg 06/14/19 22:00 06/14/19 21:09 Enoxaparin SUB-Q 40 mg QDAY@2200 DOMINICK Administration Fentanyl 50 mcg 06/11/19 17:45 06/11/19 20:52 Sublimaze IV 50 mcg Q10MIN PRN Administration ANALGESIA Furosemide 20 mg 06/14/19 10:00 06/15/19 09:16 Lasix IV 20 mg QDAY DOMINICK Administration Hydrophilic Ointment 1 applic 06/11/19 17:44 Vaseline Lip Therapy TP Q2HR PRN Dry Lips Fentanyl Citrate 2,000 mcg in 100 mls @ 3.742 mls/hr 06/11/19 18:00 06/14/19 22:15 Fentanyl Drip Premix IV 0 mcg/kg/hr TITR DOMINICK 0 mls/hr Titration Protocol 1 MCG/KG/HR Lorazepam 100 mg/ Sodium 100 mls @ 1 mls/hr 06/11/19 18:00 06/14/19 22:15 Chloride/ Miscellaneous IV 0 mg/hr Information TITR DOMINICK 0 mls/hr Titration Protocol 1 MG/HR Cefepime HCl 1 gm in 100 mls @ 200 mls/hr 06/14/19 14:00 06/15/19 06:17 Cefepime/Ns 1 Gm/100 Ml IV 06/19/19 13:59 200 mls/hr Q8HR DOMINICK Administration Protocol Insulin Human Lispro 0 unit 06/12/19 00:00 06/15/19 06:18 Humalog SUB-Q Not Given Q6HR [facility] Protocol Lansoprazole 30 mg 06/13/19 11:00 06/15/19 09:16 Prevacid Solutab FEEDTUBE 30 mg QDAY [facility] Administration Lisinopril 10 mg 06/14/19 10:00 06/15/19 09:17 Zestril PO Not Given DAILY [facility] Methylprednisolone Sodium Succinate 80 mg 06/13/19 17:45 06/15/19 06:17 Solu-Medrol IV 80 mg Q6HR [facility] Administration Multi-Ingred Cream/Lotion/Oil/Oint 1 applic 06/11/19 17:44 Artificial Tears Ophth Oint OU Q4HR PRN Dry Eye(s) Ondansetron HCl 4 mg 06/11/19 22:48 Zofran IV Q8H PRN Nausea And Vomiting Quetiapine Fumarate 300 mg 06/13/19 11:00 06/15/19 09:17 Seroquel PO 300 mg BID DOMINICK Administration Simple Syrup 15 ml 06/13/19 17:52 Simple Syrup FEEDTUBE PRN PRN Hypoglycemia Simple Syrup 30 ml 06/13/19 17:52 Simple Syrup FEEDTUBE PRN PRN Hypoglycemia Sodium Bicarbonate 325 mg 06/13/19 17:52 Sodium Bicarbonate FEEDTUBE PRN PRN For Clogged Feeding Tube Sodium Chloride 10 ml 06/12/19 10:00 06/15/19 09:17 Sodium Chloride Flush Syringe 10 Ml IV 10 ml BID DOMINICK Administration Sodium Chloride 10 ml 06/11/19 22:48 06/13/19 22:00 Sodium Chloride Flush Syringe 10 Ml IV 10 ml PRN PRN Administration LINE FLUSH Venlafaxine HCl 75 mg 06/13/19 14:00 06/15/19 08:10 Effexor PO 75 mg TID DOMINICK Administration Nutrition/Malnutrition Assess - Dietary Evaluation Nutrition/Malnutrition Findings: Nutrition Notes Start: 06/12/19 11:05 Freq: Status: Active Protocol: Document 06/14/19 08:19 LM (Rec: 06/14/19 08:28 LM [email or web address]) Nutrition Notes Initial or Follow up Reassessment Current Diagnosis COPD,Coronary Artery Disease, Hypertension,Heart Failure, Respiratory Failure Other Pertinent Diagnosis COPD exacerbation Current Diet TF diet Labs/Tests Na 150 Pertinent Medications Reviewed Height 5 ft Weight 74.843 kg [place] Body Weight (kg) 45.45 BMI 32.2 Weight Status Obese Subjective/Other Information MD consult for TF. Pt remains on vent. Burn Absent Trauma Absent Current % PO Negligible Minimum of two criteria No #1 Nutrition Diagnosis Inadequate oral intake Diagnosis Progress(for reassessment Continues documentation) Is patient on ventilator? Yes Is Patient Ambulatory and/or Out of Bed No REE-([facility]-confined to bed) [phone] Calculation Used for Recommendations [facility] Additional Notes Pro needs 2g/kg IBW: 91g/day 1ml/kcal Nutrition Intervention Change Diet Order: TF Nutrition Support: Promote 1.0 at 60ml/hr Flush 150 q4h for hypernatremia Flush 50ml q4h once resolved Kcal 1,440 Protein (gm) 90 Fluid (mL) 1,208 Goal #1 TF start/tolerance Anticipated Discharge Needs: Unable to identify at this time Follow-Up By: 06/16/19 Additional Comments F/U for TF start/tolerance, Na
[2019-06-15] MEDS: dilTIAZem/D5W 100 MG/100 ML BAG IV SCH ×2 (10:30→17:55)
[2019-06-15] MEDS ORDERED: dilTIAZem 25 MG/5 ML INJ IV ONE (10:30)
[2019-06-15] MEDS: DIGOXIN 0.5 MG/2 ML INJ IV SCH ×2 (12:50→17:32)
[2019-06-15] MEDS: fentaNYL DRIP Premix 2,000 MCG/100 ML BAG IV SCH (14:26)
--- NOTE | 2019-06-15 14:45 | Progress Note ---
Assessment and Plan Acute and chronic hypoxic and hypercapnic respiratory failure: Acute exacerbation of COPD Tobacco use disorder/Nicotine dependence (on going) Hypernatremia History of coronary artery disease/CHF History of HTN Chronic narcotic dependence Chronic back pain Anxiety disorder History of depression; Obesity; BMI 32.2 - keep Peep at 8 cm H2) - begin Amiodarone drip - continue other care as below - continue supplemental oxygen with restrictive strategies acutely re: severe COPD (PaO2 of 60 with O2 sats 88-90% is acceptable) - VAP bundle addressed (aspiration precautions; HOB > 40 degrees) - Daily SAT and SBT assessment as tolerated - continue bronchodilators with pulmonary hygiene per RT - Stop benzodiazepine's, reduce the possibility of delirium - Continue with fentanyl, titrate for RASS of 0 to -1 - Maintenance of sleep-wake cycle, avoid delirium - continue enteral nutritional support at goal rate as tolerated - Accuchecks with glycemic control per SSI for target blood glucose of 140-180 mg/dL while critically ill; avoid hypoglycemia - VTE prophylaxis (Lovenox) - Stress ulcer prophylaxis (Prevacid) - continue systemic Steroids - Empiric Antibiotics (Cefepime); de-escalate per ID rec's - Monitor hemodynamics closely - Avoid delirium; Avoid benzodiazepines - Nicotine withdrawal precautions, nicotine patch - In view of ongoing smoking, recurrent hospital admission, will need to re- address advance directives and goals of care, once the patient is able to be a part of that discussion. Will also address smoking cessation again, once she is able to be a part of that discussion - continue other care per attending / other databases computer consultant's .... re-evaluate in am & prn CONDITION: CRITICAL PROGNOSIS: GUARDED CODE STATUS: FULL CODE The high probability of a clinically significant, sudden or life-threatening det erioration of the respiratory, cardiovascular, neurology, endocrine system(s) required my full and direct attention, intervention and personal management. The aggregate critical care time was [35] minutes without overlap. Time includes spent on; [x] Data Review and interpretation [x] Patient assessment and monitoring of vital signs [x] Documentation [x] Medication orders and management Subjective Date of service: 06/15/19 Principal diagnosis: Ac and ch hypoxic & hypercapnic resp failure; AE-COPD; Tobacco use disorder Interval history: Patient is seen today for: Ac and ch hypoxic hypercapnic resp failure; AE-COPD; Tobacco use disorder/Nicotine dependence; Hypernatremia; HTN (hypotensive at presentation 0; Chronic narcotic dependence ; Chronic back pain; Anxiety disorder Seen and examined at bedside; 24-hour events reviewed; nursing and respiratory care staff consulted; no adverse overnight events reported to me; laying in bed; AMS is persistent; remains hypoxemic; + persistent tachycardia and became hypotensive on [place] Objective Vital Signs - 12hr 06/15/19 06/15/19 06/15/19 03:00 03:14 03:15 Temperature 97.4 F L Pulse Rate 108 H 109 H Pulse Rate [ Bilateral] Pulse Rate [ Dorsalis Pedis] Pulse Rate [ From Monitor] Pulse Rate [ Radial] Respiratory 16 14 Rate Respiratory Rate [Bilateral ] Blood Pressure 95/47 102/51 O2 Sat by Pulse 97 97 Oximetry 06/15/19 06/15/19 06/15/19 03:30 03:35 03:45 Temperature Pulse Rate 105 H 103 H 105 H Pulse Rate [ Bilateral] Pulse Rate [ Dorsalis Pedis] Pulse Rate [ From Monitor] Pulse Rate [ Radial] Respiratory 14 12 Rate Respiratory Rate [Bilateral ] Blood Pressure 107/48 101/49 101/49 O2 Sat by Pulse 97 97 98 Oximetry 06/15/19 06/15/19 06/15/19 04:00 04:15 04:30 Temperature Pulse Rate 104 H 89 92 H Pulse Rate [ Bilateral] Pulse Rate [ 89 Dorsalis Pedis] Pulse Rate [ 97 H From Monitor] Pulse Rate [ 97 H Radial] Respiratory 14 12 16 Rate Respiratory Rate [Bilateral ] Blood Pressure 104/50 95/46 93/45 O2 Sat by Pulse 97 97 97 Oximetry 06/15/19 06/15/19 06/15/19 04:45 05:00 05:15 Temperature Pulse Rate 91 H 91 H 95 H Pulse Rate [ Bilateral] Pulse Rate [ Dorsalis Pedis] Pulse Rate [ From Monitor] Pulse Rate [ Radial] Respiratory 13 11 L 14 Rate Respiratory Rate [Bilateral ] Blood Pressure 105/47 103/48 107/55 O2 Sat by Pulse 98 98 99 Oximetry 06/15/19 06/15/19 06/15/19 05:30 05:45 06:00 Temperature Pulse Rate 102 H 93 H 90 Pulse Rate [ Bilateral] Pulse Rate [ Dorsalis Pedis] Pulse Rate [ From Monitor] Pulse Rate [ Radial] Respiratory 12 12 12 Rate Respiratory Rate [Bilateral ] Blood Pressure 103/56 109/55 105/59 O2 Sat by Pulse 98 99 98 Oximetry 06/15/19 06/15/19 06/15/19 06:15 06:30 06:45 Temperature Pulse Rate 94 H 87 89 Pulse Rate [ Bilateral] Pulse Rate [ Dorsalis Pedis] Pulse Rate [ From Monitor] Pulse Rate [ Radial] Respiratory 11 L 12 13 Rate Respiratory Rate [Bilateral ] Blood Pressure 110/60 106/57 107/63 O2 Sat by Pulse 98 98 99 Oximetry 06/15/19 06/15/19 06/15/19 07:00 07:15 07:30 Temperature Pulse Rate 88 89 87 Pulse Rate [ Bilateral] Pulse Rate [ Dorsalis Pedis] Pulse Rate [ From Monitor] Pulse Rate [ Radial] Respiratory 12 12 12 Rate Respiratory Rate [Bilateral ] Blood Pressure 114/61 109/63 115/62 O2 Sat by Pulse 98 98 98 Oximetry 06/15/19 06/15/19 06/15/19 07:45 08:00 08:16 Temperature 97.9 F Pulse Rate 89 88 113 H Pulse Rate [ 111 H Bilateral] Pulse Rate [ 88 Dorsalis Pedis] Pulse Rate [ 88 From Monitor] Pulse Rate [ 88 Radial] Respiratory 12 20 12 Rate Respiratory 12 Rate [Bilateral ] Blood Pressure 110/61 113/64 127/73 O2 Sat by Pulse 98 100 94 Oximetry 06/15/19 06/15/19 06/15/19 08:30 08:46 09:00 Temperature Pulse Rate 111 H 102 H 107 H Pulse Rate [ Bilateral] Pulse Rate [ Dorsalis Pedis] Pulse Rate [ From Monitor] Pulse Rate [ Radial] Respiratory 12 12 12 Rate Respiratory Rate [Bilateral ] Blood Pressure 114/61 104/57 105/59 O2 Sat by Pulse 95 85 89 Oximetry 06/15/19 06/15/19 06/15/19 09:15 09:17 09:30 Temperature Pulse Rate 110 H 112 H 119 H Pulse Rate [ Bilateral] Pulse Rate [ Dorsalis Pedis] Pulse Rate [ From Monitor] Pulse Rate [ Radial] Respiratory 12 11 L Rate Respiratory Rate [Bilateral ] Blood Pressure 106/57 106/57 106/57 O2 Sat by Pulse 91 92 Oximetry 06/15/19 06/15/19 06/15/19 09:45 10:00 10:15 Temperature Pulse Rate 141 H 143 H 143 H Pulse Rate [ Bilateral] Pulse Rate [ Dorsalis Pedis] Pulse Rate [ From Monitor] Pulse Rate [ Radial] Respiratory 13 14 13 Rate Respiratory Rate [Bilateral ] Blood Pressure 96/57 91/56 100/49 O2 Sat by Pulse 93 89 91 Oximetry 06/15/19 06/15/19 06/15/19 10:25 10:30 10:46 Temperature Pulse Rate 144 H 135 H 135 H Pulse Rate [ Bilateral] Pulse Rate [ Dorsalis Pedis] Pulse Rate [ From Monitor] Pulse Rate [ Radial] Respiratory 12 13 Rate Respiratory Rate [Bilateral ] Blood Pressure 91/56 100/49 91/49 O2 Sat by Pulse 85 91 Oximetry 06/15/19 06/15/19 06/15/19 11:00 11:16 11:30 Temperature Pulse Rate 137 H 139 H 135 H Pulse Rate [ Bilateral] Pulse Rate [ Dorsalis Pedis] Pulse Rate [ From Monitor] Pulse Rate [ Radial] Respiratory 15 16 12 Rate Respiratory Rate [Bilateral ] Blood Pressure 91/49 103/49 93/58 O2 Sat by Pulse 92 91 88 Oximetry 06/15/19 06/15/19 06/15/19 11:45 12:00 12:15 Temperature 99.1 F Pulse Rate 132 H 132 H 131 H Pulse Rate [ Bilateral] Pulse Rate [ 135 H Dorsalis Pedis] Pulse Rate [ 135 H From Monitor] Pulse Rate [ 135 H Radial] Respiratory 12 16 13 Rate Respiratory Rate [Bilateral ] Blood Pressure 97/49 92/59 100/55 O2 Sat by Pulse 92 88 92 Oximetry 06/15/19 06/15/19 06/15/19 12:30 12:43 12:45 Temperature Pulse Rate 134 H 130 H 131 H Pulse Rate [ Bilateral] Pulse Rate [ Dorsalis Pedis] Pulse Rate [ From Monitor] Pulse Rate [ Radial] Respiratory 14 12 Rate Respiratory Rate [Bilateral ] Blood Pressure 109/61 103/61 103/61 O2 Sat by Pulse 90 94 91 Oximetry 06/15/19 06/15/19 06/15/19 12:50 12:51 13:00 Temperature Pulse Rate 133 H 130 H Pulse Rate [ 133 H Bilateral] Pulse Rate [ Dorsalis Pedis] Pulse Rate [ From Monitor] Pulse Rate [ Radial] Respiratory 13 Rate Respiratory 12 Rate [Bilateral ] Blood Pressure 110/62 108/57 O2 Sat by Pulse 89 Oximetry Constitutional: no acute distress, other (elderly looking obese CF, normocephalic on MVS without signidficant dyssynchrony) Eyes: non-icteric ENT: oropharynx moist, other (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) Neck: supple, no lymphadenopathy, no JVD Effort: mildly labored Ascultation: Bilateral: diminished breath sounds, rhonchi Percussion: Bilateral: not dull Cardiovascular: regular rate and rhythm Gastrointestinal: normoactive bowel sounds, soft, non-tender, non-distended Integumentary: normal Extremities: no cyanosis, no edema, pulses normal, no ischemia or petechiae Neurologic: non-focal exam (grossly), pupils equal and round, unable to assess Psychiatric: other (Unable to assess re: AMS) CBC and BMP: 06/16/19 05:45 06/16/19 05:45 ABG, PT/INR, D-dimer: ABG ABG pH 7.317 pH Units (7.350-7.450) L 06/15/19 03:25 ABG pCO2 62.9 mm Hg 06/15/19 03:25 ABG pO2 87.4 mm Hg (80.0-90.0) 06/15/19 03:25 ABG O2 Saturation 96.3 % (95.0-99.0) 06/15/19 03:25 PT/INR, D-dimer PT 13.0 Sec. (12.2-14.9) 06/11/19 18:03 INR 0.97 (0.87-1.13) 06/11/19 18:03 Abnormal lab findings: Abnormal Labs 06/11/19 06/11/19 06/11/19 18:03 18:03 18:03 MCH 25 L RDW 19.4 H Plt Count 124 L Gaines % (Auto) 10.3 H Lymph # 1.1 L Seg Neutrophils % 74.4 H Seg Neuts % (Manual) Lymphocytes % (Manual) Seg Neutrophils # Man Lymphocytes # (Manual) ABG pH ABG pO2 ABG HCO3 ABG O2 Saturation ABG Base Excess ABG Hemoglobin Oxyhemoglobin Sodium 146 H Chloride Carbon Dioxide BUN 21 H Creatinine 0.4 L Glucose POC Glucose Calcium Magnesium 2.70 H CK-MB (CK-2) CK-MB (CK-2) Rel Index Albumin 3.5 L Urine WBC (Auto) Salicylates 1.0 L Acetaminophen 06/11/19 06/11/19 06/11/19 18:03 18:59 23:22 MCH RDW Plt Count Gaines % (Auto) Lymph # Seg Neutrophils % Seg Neuts % (Manual) Lymphocytes % (Manual) Seg Neutrophils # Man Lymphocytes # (Manual) ABG pH 7.340 L ABG pO2 76.0 L ABG HCO3 34.6 H ABG O2 Saturation ABG Base Excess 7.1 H ABG Hemoglobin 10.9 L Oxyhemoglobin 91.6 L Sodium Chloride Carbon Dioxide BUN Creatinine Glucose POC Glucose Calcium Magnesium CK-MB (CK-2) 5.5 H CK-MB (CK-2) Rel Index 5.5 H Albumin Urine WBC (Auto) Salicylates Acetaminophen < 5.0 L 06/12/19 06/12/19 06/12/19 00:29 02:04 04:20 MCH RDW Plt Count Gaines % (Auto) Lymph # Seg Neutrophils % Seg Neuts % (Manual) Lymphocytes % (Manual) Seg Neutrophils # Man Lymphocytes # (Manual) ABG pH 7.313 L ABG pO2 75.3 L ABG HCO3 29.9 H ABG O2 Saturation 94.3 L ABG Base Excess ABG Hemoglobin 10.8 L Oxyhemoglobin 92.0 L Sodium Chloride Carbon Dioxide BUN Creatinine Glucose POC Glucose 107 H Calcium Magnesium CK-MB (CK-2) CK-MB (CK-2) Rel Index Albumin Urine WBC (Auto) 30.0 H Salicylates Acetaminophen 06/12/19 06/12/19 06/12/19 05:09 05:09 05:09 MCH 25 L RDW 19.4 H Plt Count 114 L Gaines % (Auto) Lymph # Seg Neutrophils % Seg Neuts % (Manual) 91.0 H Lymphocytes % (Manual) 7.0 L Seg Neutrophils # Man Lymphocytes # (Manual) 0.4 L ABG pH ABG pO2 ABG HCO3 ABG O2 Saturation ABG Base Excess ABG Hemoglobin Oxyhemoglobin Sodium 147 H Chloride 107.4 H Carbon Dioxide BUN 19 H Creatinine 0.4 L Glucose 110 H POC Glucose Calcium 8.2 L Magnesium CK-MB (CK-2) CK-MB (CK-2) Rel Index 5.4 H Albumin Urine WBC (Auto) Salicylates Acetaminophen 06/12/19 06/12/19 06/13/19 06:42 23:21 04:14 MCH RDW Plt Count Gaines % (Auto) Lymph # Seg Neutrophils % Seg Neuts % (Manual) Lymphocytes % (Manual) Seg Neutrophils # Man Lymphocytes # (Manual) ABG pH ABG pO2 62.6 L ABG HCO3 29.6 H ABG O2 Saturation 91.0 L ABG Base Excess ABG Hemoglobin 10.3 L Oxyhemoglobin 89.0 L Sodium Chloride Carbon Dioxide BUN Creatinine Glucose POC Glucose 108 H 106 H Calcium Magnesium CK-MB (CK-2) CK-MB (CK-2) Rel Index Albumin Urine WBC (Auto) Salicylates Acetaminophen 06/13/19 06/13/19 06/13/19 04:54 04:54 12:20 MCH 25 L RDW 19.2 H Plt Count 119 L Gaines % (Auto) Lymph # Seg Neutrophils % Seg Neuts % (Manual) 95.0 H Lymphocytes % (Manual) 2.0 L Seg Neutrophils # Man 9.1 H Lymphocytes # (Manual) 0.2 L ABG pH ABG pO2 ABG HCO3 ABG O2 Saturation ABG Base Excess ABG Hemoglobin Oxyhemoglobin Sodium 149 H Chloride 111.4 H Carbon Dioxide BUN 26 H Creatinine 0.5 L Glucose 107 H POC Glucose 125 H Calcium Magnesium CK-MB (CK-2) CK-MB (CK-2) Rel Index Albumin Urine WBC (Auto) Salicylates Acetaminophen 06/13/19 06/14/19 06/14/19 17:25 03:44 04:55 MCH RDW Plt Count Gaines % (Auto) Lymph # Seg Neutrophils % Seg Neuts % (Manual) Lymphocytes % (Manual) Seg Neutrophils # Man Lymphocytes # (Manual) ABG pH ABG pO2 58.9 L ABG HCO3 29.5 H ABG O2 Saturation 88.7 L ABG Base Excess ABG Hemoglobin 10.2 L Oxyhemoglobin 86.7 L Sodium 150 H Chloride 110.4 H Carbon Dioxide BUN 20 H Creatinine 0.4 L Glucose 105 H POC Glucose 128 H Calcium Magnesium CK-MB (CK-2) CK-MB (CK-2) Rel Index Albumin Urine WBC (Auto) Salicylates Acetaminophen 06/14/19 06/14/19 06/14/19 05:37 11:58 21:00 MCH RDW Plt Count Gaines % (Auto) Lymph # Seg Neutrophils % Seg Neuts % (Manual) Lymphocytes % (Manual) Seg Neutrophils # Man Lymphocytes # (Manual) ABG pH 7.321 L ABG pO2 60.0 L ABG HCO3 31.4 H ABG O2 Saturation 87.3 L ABG Base Excess 4.1 H ABG Hemoglobin 10.6 L Oxyhemoglobin 84.8 L Sodium Chloride Carbon Dioxide BUN Creatinine Glucose POC Glucose 111 H 116 H Calcium Magnesium CK-MB (CK-2) CK-MB (CK-2) Rel Index Albumin Urine WBC (Auto) Salicylates Acetaminophen 06/15/19 06/15/19 06/15/19 00:22 03:25 05:08 MCH RDW Plt Count Gaines % (Auto) Lymph # Seg Neutrophils % Seg Neuts % (Manual) Lymphocytes % (Manual) Seg Neutrophils # Man Lymphocytes # (Manual) ABG pH 7.317 L ABG pO2 ABG HCO3 31.5 H ABG O2 Saturation ABG Base Excess 4.1 H ABG Hemoglobin 10.4 L Oxyhemoglobin 94.1 L Sodium Chloride Carbon Dioxide 31 H BUN 23 H Creatinine 0.3 L Glucose 120 H POC Glucose 108 H Calcium Magnesium CK-MB (CK-2) CK-MB (CK-2) Rel Index Albumin Urine WBC (Auto) Salicylates Acetaminophen 06/15/19 06/15/19 05:24 11:41 MCH RDW Plt Count Gaines % (Auto) Lymph # Seg Neutrophils % Seg Neuts % (Manual) Lymphocytes % (Manual) Seg Neutrophils # Man Lymphocytes # (Manual) ABG pH ABG pO2 ABG HCO3 ABG O2 Saturation ABG Base Excess ABG Hemoglobin Oxyhemoglobin Sodium Chloride Carbon Dioxide BUN Creatinine Glucose POC Glucose 111 H 154 H Calcium Magnesium CK-MB (CK-2) CK-MB (CK-2) Rel Index Albumin Urine WBC (Auto) Salicylates Acetaminophen Allied health notes reviewed: nursing
[2019-06-15] MEDS ORDERED: AMIODARONE 900 MG in DEXTROSE 5% IN WATER 482 ML IV SCH (17:00)
[2019-06-15] MEDS: ENOXAPARIN 40 MG/0.4 ML INJ SUB-Q SCH (22:21)
[2019-06-16] MEDS: methylPREDNISolone Sod Succinate 125 MG/2 ML INJ IV SCH ×6 (00:25→23:48)
[2019-06-16] MEDS: INSULIN LISPRO 100 UNIT/ML SUB-Q SCH ×6 (00:26→23:51)
--- NOTE | 2019-06-16 03:07 | XRay Report ---
CHEST 1 VIEW 0216 INDICATION / CLINICAL INFORMATION: follow up respiratory failure. COMPARISON: 06/15/2019 FINDINGS: SUPPORT DEVICES: Stable HEART / MEDIASTINUM: Stable LUNGS / PLEURA: Bibasilar densities are again seen with improvement noted on the left. No pneumothora x. ADDITIONAL FINDINGS: No significant additional findings. IMPRESSION: Improvement Signer Name: Alex Shay MD Signed: 06/16/2019 3:03 AM Workstation Name: [id number]
[2019-06-16 04:59] LABS: ABG Base Excess 7.2 mmol/L (-2.0-3.0); ABG HCO3 35.2 mmol/L (20.0-26.0); ABG Methemoglobin 0.4 % (0.0-1.5); ABG Oxygen Saturation 96.8 % (95.0-99.0); ABG PH 7.313 pH Units (7.350-7.450); ABG PO2 96.4 mm Hg (80.0-90.0)
[2019-06-16 06:13] LABS: Mean Corpuscular HGB Conc 30 % (30-34); Mean Corpuscular Volume 82 fl (79-97); Red Blood Count 4.36 M/mm3 (3.65-5.03); Red Cell Distribution Width 18.7 % (13.2-15.2)
[2019-06-16 06:20] LABS: Hematocrit 35.5 % (30.3-42.9); Hemoglobin 10.7 gm/dl (10.1-14.3); Platelet Count 93 K/mm3 (140-440)
[2019-06-16 06:29] LABS: BUN/Creatinine Ratio 83; Blood Urea Nitrogen 25 mg/dL (7-17); Calcium 8.9 mg/dL (8.4-10.2); Hemolysis Index 3
[2019-06-16] MEDS: CEFEPIME/NS 1 GM/100 ML 1 GM/100 ML BAG IV SCH ×3 (06:31→21:44)
[2019-06-16 06:57] LABS: Basophils % (Manual) 0 % (0.0-1.8); Eosinophils % (Manual) 0 % (0.0-4.3); Hypochromasia 1+; Total Cells Counted 100
[2019-06-16 06:58] LABS: Anisocytosis Few; Ovalocytes Rare; Platelet Estimate Consistent w Auto
[2019-06-16] MEDS: IPRATROPIUM/ALBUTEROL SULFATE 3 ML AMPUL.NEB IH SCH ×3 (08:46→20:06)
[2019-06-16] MEDS: ARFORMOTEROL 15 MCG/2 ML NEBU IH SCH ×2 (08:46→20:06)
[2019-06-16] MEDS: BUDESONIDE 0.5 MG/2 ML NEBU IH SCH ×2 (08:46→20:06)
[2019-06-16] MEDS: VENLAFAXINE 75 MG TAB PO SCH ×3 (08:46→20:01)
[2019-06-16] MEDS: fentaNYL DRIP Premix 2,000 MCG/100 ML BAG IV SCH (09:24)
[2019-06-16] MEDS: FUROSEMIDE 20 MG/2 ML INJ IV SCH (09:26)
[2019-06-16] MEDS: QUEtiapine 100 MG TAB PO SCH ×2 (09:26→21:44)
[2019-06-16] MEDS: LANSOPRAZOLE 30 MG SOLUTAB FEEDTUBE SCH (09:26)
[2019-06-16] MEDS: LISINOPRIL 10 MG TAB PO SCH (10:22)
--- NOTE | 2019-06-16 11:18 | Progress Note ---
Assessment and Plan Paroxysmal Atrial flutter/afib/MAT currently in sinus rhythm on amiodarone and digoxin for suppression not on anticoagulation secondary to history of melena and anemia. Respiratory failure s/p intubation COPD exacerbation on home oxygen History of LA/Coronary artery disease EF 45-50% by echo 08/2018 [facility]: TECHNOLOGY CONSULTANT of the RCA recommend for medical therapy. She did undergo PCI of the mid LAD using bare metal stent. Plan: We will treat paroxysmal atrial flutter with oral Cardizem, oral Amiodarone and intravenous digoxin as tolerated. Subjective Date of service: 06/16/19 Principal diagnosis: Ac and ch hypoxic & hypercapnic resp failure; AE-COPD; Tobacco use disorder Interval history: Patient remains intubated on the ventilator. Sinus tachycardia on telemetry. Objective Vital Signs Temp Pulse Pulse Pulse Pulse Pulse Resp 06/16/19 10:00 136 H 18 06/16/19 09:45 114 H 16 06/16/19 09:30 87 16 06/16/19 09:17 84 06/16/19 09:15 83 16 06/16/19 09:00 86 16 06/16/19 08:45 85 16 06/16/19 08:30 87 16 06/16/19 08:15 88 16 06/16/19 08:00 98.8 F 89 81 17 06/16/19 07:45 93 H 16 06/16/19 07:30 90 17 06/16/19 07:15 90 15 06/16/19 07:00 92 H 16 06/16/19 06:45 90 16 06/16/19 06:30 99 H 16 06/16/19 06:15 102 H 16 06/16/19 06:00 102 H 16 06/16/19 05:45 111 H 16 06/16/19 05:30 111 H 12 06/16/19 05:15 112 H 12 06/16/19 05:00 113 H 12 06/16/19 04:45 115 H 12 06/16/19 04:30 113 H 12 06/16/19 04:15 114 H 12 06/16/19 04:00 98.6 F 113 H 114 H 18 06/16/19 03:58 114 H 06/16/19 03:45 114 H 12 06/16/19 03:30 116 H 13 06/16/19 03:15 114 H 13 06/16/19 03:00 117 H 12 06/16/19 02:45 117 H 12 06/16/19 02:30 120 H 13 06/16/19 02:15 115 H 12 06/16/19 02:00 119 H 12 06/16/19 01:45 119 H 12 06/16/19 01:30 122 H 12 06/16/19 01:15 124 H 13 06/16/19 01:00 122 H 12 06/16/19 00:48 114 H 18 06/16/19 00:47 126 H 06/16/19 00:45 125 H 11 L 06/16/19 00:30 129 H 36 H 06/16/19 00:15 128 H 13 06/16/19 00:12 129 H 06/16/19 00:00 130 H 12 06/15/19 23:45 132 H 13 06/15/19 23:43 98.8 F 06/15/19 23:34 131 H 14 06/15/19 23:30 132 H 13 06/15/19 23:15 136 H 11 L 06/15/19 23:00 142 H 12 06/15/19 22:45 139 H 28 H 06/15/19 22:30 121 H 15 06/15/19 22:15 121 H 20 06/15/19 22:00 120 H 14 06/15/19 21:45 121 H 25 H 06/15/19 21:30 117 H 17 06/15/19 21:15 117 H 18 06/15/19 21:00 117 H 15 06/15/19 20:45 114 H 17 06/15/19 20:30 111 H 20 06/15/19 20:25 114 H 18 06/15/19 20:15 116 H 17 06/15/19 20:00 98.2 F 114 H 19 06/15/19 19:45 120 H 17 06/15/19 19:41 119 H 06/15/19 19:40 124 H 06/15/19 19:30 118 H 16 06/15/19 19:15 118 H 37 H 06/15/19 19:00 119 H 36 H 06/15/19 18:45 121 H 45 H 06/15/19 18:30 121 H 36 H 06/15/19 18:15 124 H 32 H 06/15/19 18:00 124 H 30 H 06/15/19 17:45 130 H 14 06/15/19 17:32 120 H 06/15/19 17:30 120 H 13 06/15/19 17:15 123 H 14 06/15/19 17:00 124 H 18 06/15/19 16:46 122 H 15 06/15/19 16:30 122 H 14 06/15/19 16:24 121 H 06/15/19 16:16 124 H 20 06/15/19 16:00 98.7 F 124 H 121 H 121 H 121 H 20 06/15/19 15:45 124 H 14 06/15/19 15:30 124 H 16 06/15/19 15:16 126 H 20 06/15/19 15:00 128 H 15 06/15/19 14:46 129 H 18 06/15/19 14:30 133 H 20 06/15/19 14:15 128 H 15 06/15/19 14:00 133 H 18 06/15/19 13:45 130 H 15 06/15/19 13:30 132 H 14 06/15/19 13:15 135 H 17 06/15/19 13:00 130 H 13 06/15/19 12:51 133 H 06/15/19 12:50 133 H 06/15/19 12:45 131 H 12 06/15/19 12:43 130 H 06/15/19 12:30 134 H 14 06/15/19 12:15 131 H 13 06/15/19 12:00 99.1 F 132 H 135 H 135 H 135 H 16 06/15/19 11:45 132 H 12 06/15/19 11:30 135 H 12 06/15/19 11:16 139 H 16 Resp BP Pulse Ox 06/16/19 10:00 127/68 93 06/16/19 09:45 129/69 95 06/16/19 09:30 109/56 94 06/16/19 09:17 16 06/16/19 09:15 112/56 93 06/16/19 09:00 106/58 94 06/16/19 08:45 123/65 98 06/16/19 08:30 118/62 96 06/16/19 08:15 114/59 96 06/16/19 08:00 115/61 93 06/16/19 07:45 112/59 96 06/16/19 07:30 113/59 95 06/16/19 07:15 114/56 95 06/16/19 07:00 110/54 95 06/16/19 06:45 108/58 94 06/16/19 06:30 110/62 94 06/16/19 06:15 99/54 95 06/16/19 06:00 101/56 95 06/16/19 05:45 107/53 96 06/16/19 05:30 108/52 98 06/16/19 05:15 101/50 98 06/16/19 05:00 95/52 98 06/16/19 04:45 106/52 97 06/16/19 04:30 104/52 97 06/16/19 04:15 97/51 97 06/16/19 04:00 105/53 97 06/16/19 03:58 102/54 97 06/16/19 03:45 102/54 97 06/16/19 03:30 99/50 97 06/16/19 03:15 97/51 97 06/16/19 03:00 95/50 96 06/16/19 02:45 98/46 96 06/16/19 02:30 97/52 96 06/16/19 02:15 105/54 97 06/16/19 02:00 100/52 97 06/16/19 01:45 98/51 96 06/16/19 01:30 103/47 97 06/16/19 01:15 97/49 96 06/16/19 01:00 98/47 96 06/16/19 00:48 97 06/16/19 00:47 06/16/19 00:45 92/47 96 06/16/19 00:30 98/50 96 06/16/19 00:15 93/48 96 06/16/19 00:12 88/47 96 06/16/19 00:00 88/47 95 06/15/19 23:45 94/43 95 06/15/19 23:43 06/15/19 23:34 86/45 95 06/15/19 23:30 86/45 95 06/15/19 23:15 89/47 96 06/15/19 23:00 104/52 96 06/15/19 22:45 103/52 97 06/15/19 22:30 113/53 98 06/15/19 22:15 101/53 97 06/15/19 22:00 95/53 98 06/15/19 21:45 98/52 97 06/15/19 21:30 91/54 97 06/15/19 21:15 107/52 97 06/15/19 21:00 102/50 97 06/15/19 20:45 102/57 97 06/15/19 20:30 97/58 96 06/15/19 20:25 97 06/15/19 20:15 102/55 94 06/15/19 20:00 109/55 95 06/15/19 19:45 122/61 97 06/15/19 19:41 116/59 97 06/15/19 19:40 12 06/15/19 19:30 116/59 97 06/15/19 19:15 111/58 97 06/15/19 19:00 114/58 97 06/15/19 18:45 108/57 97 06/15/19 18:30 114/57 98 06/15/19 18:15 113/56 97 06/15/19 18:00 111/57 97 06/15/19 17:45 113/67 96 06/15/19 17:32 108/63 06/15/19 17:30 108/63 96 06/15/19 17:15 114/60 94 06/15/19 17:00 112/58 94 06/15/19 16:46 111/58 95 06/15/19 16:30 111/56 94 06/15/19 16:24 106/56 95 06/15/19 16:16 106/56 95 06/15/19 16:00 110/57 100 06/15/19 15:45 109/53 95 06/15/19 15:30 106/55 96 06/15/19 15:16 104/51 96 06/15/19 15:00 108/55 95 06/15/19 14:46 103/55 93 06/15/19 14:30 109/56 94 06/15/19 14:15 103/53 94 06/15/19 14:00 108/61 91 06/15/19 13:45 110/62 98 06/15/19 13:30 113/57 96 06/15/19 13:15 109/56 89 06/15/19 13:00 108/57 89 06/15/19 12:51 12 06/15/19 12:50 110/62 06/15/19 12:45 103/61 91 06/15/19 12:43 103/61 94 06/15/19 12:30 109/61 90 06/15/19 12:15 100/55 92 06/15/19 12:00 92/59 88 06/15/19 11:45 97/49 92 06/15/19 11:30 93/58 88 06/15/19 11:16 103/49 91 - Physical Examination General: Other (intubated on the vent) Cardiac: Positive: Tachycardia - Labs and Meds CBC 06/16/19 Range/Units 05:45 WBC 12.1 H (4.5-11.0) K/mm3 RBC 4.36 (3.65-5.03) M/mm3 Hgb 10.7 (10.1-14.3) gm/dl Hct 35.5 (30.3-42.9) % Plt Count 93 L (140-440) K/mm3 Comprehensive Metabolic Panel 06/16/19 Range/Units 05:45 Sodium 144 (137-145) mmol/L Potassium 4.4 (3.6-5.0) mmol/L Chloride 104.0 (98-107) mmol/L Carbon Dioxide 33 H (22-30) mmol/L BUN 25 H (7-17) mg/dL Creatinine 0.3 L (0.7-1.2) mg/dL Glucose 165 H (65-100) mg/dL Calcium 8.9 (8.4-10.2) mg/dL - Allied health notes Allied health notes reviewed: nursing
[2019-06-16] MEDS: dilTIAZem 30 MG TAB PO SCH ×3 (11:48→21:44)
--- NOTE | 2019-06-16 13:16 | Progress Note ---
Assessment and Plan Acute and chronic hypoxic and hypercapnic respiratory failure: Acute exacerbation of COPD Tobacco use disorder/Nicotine dependence (on going) Hypernatremia History of coronary artery disease/CHF History of HTN Chronic narcotic dependence Chronic back pain Anxiety disorder History of depression; Obesity; BMI 32.2 - changed to p.o. amiodarone - further rate control per cardiology - continue supplemental oxygen with restrictive strategies acutely re: severe COPD (PaO2 of 60 with O2 sats 88-90% is acceptable) - VAP bundle addressed (aspiration precautions; HOB > 40 degrees) - Daily SAT and SBT assessment as tolerated - continue bronchodilators with pulmonary hygiene per RT - Avoid benzodiazepine's, reduce the possibility of delirium - Continue with fentanyl, titrate for RASS of 0 to -1 - Maintenance of sleep-wake cycle, avoid delirium - continue enteral nutritional support at goal rate as tolerated - Accuchecks with glycemic control per SSI for target blood glucose of 140-180 mg/dL while critically ill; avoid hypoglycemia - VTE prophylaxis (Lovenox) - Stress ulcer prophylaxis (Prevacid) - continue systemic Steroids - Empiric Antibiotics (Cefepime); de-escalate per ID rec's - Monitor hemodynamics closely - Avoid delirium; Avoid benzodiazepines - Nicotine withdrawal precautions, nicotine patch - In view of ongoing smoking, recurrent hospital admission, will need to re- address advance directives and goals of care, once the patient is able to be a part of that discussion. Will also address smoking cessation again, once she is able to be a part of that discussion - continue other care per attending / other crm consultant's .... re-evaluate in am & prn CONDITION: CRITICAL PROGNOSIS: GUARDED CODE STATUS: FULL CODE The high probability of a clinically significant, sudden or life-threatening deterioration of the respiratory, cardiovascular, neurology, endocrine system(s) required my full and direct attention, intervention and personal management. The aggregate critical care time was [32] minutes without overlap. Time includes spent on; [x] Data Review and interpretation [x] Patient assessment and monitoring of vital signs [x] Documentation [x] Medication orders and management Subjective Date of service: 06/16/19 Principal diagnosis: Ac and ch hypoxic & hypercapnic resp failure; AE-COPD; Tobacco use disorder Interval history: Patient is seen today for: Ac and ch hypoxic hypercapnic resp failure; AE-COPD; Tobacco use disorder/Nicotine dependence; Hypernatremia; HTN (hypotensive at presentation 0; Chronic narcotic dependence ; Chronic back pain; Anxiety disorder Seen and examined at bedside; 24-hour events reviewed; nursing and respiratory care staff consulted; no adverse overnight events reported to me; laying in bed; AMS is persistent; remains on MVS; FiO2 at 60%; No N/V/F/C; secretions manageable Objective Vital Signs - 12hr 06/16/19 06/16/19 06/16/19 01:30 01:45 02:00 Temperature Pulse Rate 122 H 119 H 119 H Pulse Rate [ Bilateral] Pulse Rate [ From Monitor] Respiratory 12 12 12 Rate Respiratory Rate [Bilateral ] Blood Pressure 103/47 98/51 100/52 O2 Sat by Pulse 97 96 97 Oximetry 06/16/19 06/16/19 06/16/19 02:15 02:30 02:45 Temperature Pulse Rate 115 H 120 H 117 H Pulse Rate [ Bilateral] Pulse Rate [ From Monitor] Respiratory 12 13 12 Rate Respiratory Rate [Bilateral ] Blood Pressure 105/54 97/52 98/46 O2 Sat by Pulse 97 96 96 Oximetry 06/16/19 06/16/19 06/16/19 03:00 03:15 03:30 Temperature Pulse Rate 117 H 114 H 116 H Pulse Rate [ Bilateral] Pulse Rate [ From Monitor] Respiratory 12 13 13 Rate Respiratory Rate [Bilateral ] Blood Pressure 95/50 97/51 99/50 O2 Sat by Pulse 96 97 97 Oximetry 06/16/19 06/16/19 06/16/19 03:45 03:58 04:00 Temperature 98.6 F Pulse Rate 114 H 114 H 113 H Pulse Rate [ Bilateral] Pulse Rate [ 114 H From Monitor] Respiratory 12 18 Rate Respiratory Rate [Bilateral ] Blood Pressure 102/54 102/54 105/53 O2 Sat by Pulse 97 97 97 Oximetry 06/16/19 06/16/19 06/16/19 04:15 04:30 04:45 Temperature Pulse Rate 114 H 113 H 115 H Pulse Rate [ Bilateral] Pulse Rate [ From Monitor] Respiratory 12 12 12 Rate Respiratory Rate [Bilateral ] Blood Pressure 97/51 104/52 106/52 O2 Sat by Pulse 97 97 97 Oximetry 06/16/19 06/16/19 06/16/19 05:00 05:15 05:30 Temperature Pulse Rate 113 H 112 H 111 H Pulse Rate [ Bilateral] Pulse Rate [ From Monitor] Respiratory 12 12 12 Rate Respiratory Rate [Bilateral ] Blood Pressure 95/52 101/50 108/52 O2 Sat by Pulse 98 98 98 Oximetry 06/16/19 06/16/19 06/16/19 05:45 06:00 06:15 Temperature Pulse Rate 111 H 102 H 102 H Pulse Rate [ Bilateral] Pulse Rate [ From Monitor] Respiratory 16 16 16 Rate Respiratory Rate [Bilateral ] Blood Pressure 107/53 101/56 99/54 O2 Sat by Pulse 96 95 95 Oximetry 06/16/19 06/16/19 06/16/19 06:30 06:45 07:00 Temperature Pulse Rate 99 H 90 92 H Pulse Rate [ Bilateral] Pulse Rate [ From Monitor] Respiratory 16 16 16 Rate Respiratory Rate [Bilateral ] Blood Pressure 110/62 108/58 110/54 O2 Sat by Pulse 94 94 95 Oximetry 06/16/19 06/16/19 06/16/19 07:15 07:30 07:45 Temperature Pulse Rate 90 90 93 H Pulse Rate [ Bilateral] Pulse Rate [ From Monitor] Respiratory 15 17 16 Rate Respiratory Rate [Bilateral ] Blood Pressure 114/56 113/59 112/59 O2 Sat by Pulse 95 95 96 Oximetry 06/16/19 06/16/19 06/16/19 08:00 08:15 08:30 Temperature 98.8 F Pulse Rate 89 88 87 Pulse Rate [ Bilateral] Pulse Rate [ 81 From Monitor] Respiratory 17 16 16 Rate Respiratory Rate [Bilateral ] Blood Pressure 115/61 114/59 118/62 O2 Sat by Pulse 93 96 96 Oximetry 06/16/19 06/16/19 06/16/19 08:40 08:45 09:00 Temperature Pulse Rate 87 85 86 Pulse Rate [ Bilateral] Pulse Rate [ From Monitor] Respiratory 16 16 Rate Respiratory Rate [Bilateral ] Blood Pressure 123/65 106/58 O2 Sat by Pulse 96 98 94 Oximetry 06/16/19 06/16/19 06/16/19 09:15 09:17 09:30 Temperature Pulse Rate 83 87 Pulse Rate [ 84 Bilateral] Pulse Rate [ From Monitor] Respiratory 16 16 Rate Respiratory 16 Rate [Bilateral ] Blood Pressure 112/56 109/56 O2 Sat by Pulse 93 94 Oximetry 06/16/19 06/16/19 06/16/19 09:45 10:00 10:16 Temperature Pulse Rate 114 H 136 H 135 H Pulse Rate [ Bilateral] Pulse Rate [ From Monitor] Respiratory 16 18 15 Rate Respiratory Rate [Bilateral ] Blood Pressure 129/69 127/68 120/63 O2 Sat by Pulse 95 93 94 Oximetry 06/16/19 06/16/19 06/16/19 10:22 10:30 10:45 Temperature Pulse Rate 124 H 129 H 129 H Pulse Rate [ Bilateral] Pulse Rate [ From Monitor] Respiratory 17 17 Rate Respiratory Rate [Bilateral ] Blood Pressure 107/64 110/62 108/62 O2 Sat by Pulse 93 93 Oximetry 06/16/19 06/16/19 06/16/19 11:00 11:15 11:30 Temperature Pulse Rate 131 H 126 H 123 H Pulse Rate [ Bilateral] Pulse Rate [ From Monitor] Respiratory 16 15 20 Rate Respiratory Rate [Bilateral ] Blood Pressure 115/61 107/64 114/60 O2 Sat by Pulse 94 94 95 Oximetry 06/16/19 06/16/19 06/16/19 11:45 11:48 12:00 Temperature 99 F Pulse Rate 121 H 120 H 105 H Pulse Rate [ Bilateral] Pulse Rate [ 81 From Monitor] Respiratory 16 14 Rate Respiratory Rate [Bilateral ] Blood Pressure 109/62 109/62 114/66 O2 Sat by Pulse 95 95 Oximetry 06/16/19 06/16/19 12:32 13:10 Temperature Pulse Rate 107 H 105 H Pulse Rate [ Bilateral] Pulse Rate [ From Monitor] Respiratory Rate Respiratory Rate [Bilateral ] Blood Pressure 107/60 108/55 O2 Sat by Pulse 95 Oximetry Constitutional: no acute distress, other (elderly looking obese CF, normocephalic on MVS without signidficant dyssynchrony) Eyes: non-icteric ENT: oropharynx moist, other (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) Neck: supple, no lymphadenopathy, no JVD Effort: mildly labored Ascultation: Bilateral: diminished breath sounds, rhonchi Percussion: Bilateral: not dull Cardiovascular: regular rate and rhythm Gastrointestinal: normoactive bowel sounds, soft, non-tender, non-distended Integumentary: normal Extremities: no cyanosis, no edema, pulses normal, no ischemia or petechiae Neurologic: non-focal exam (grossly), pupils equal and round, unable to assess Psychiatric: other (Unable to assess re: AMS) CBC and BMP: 06/18/19 05:23 06/18/19 05:23 ABG, PT/INR, D-dimer: ABG ABG pH 7.313 pH Units (7.350-7.450) L 06/16/19 03:40 ABG pCO2 71.0 mm Hg 06/16/19 03:40 ABG pO2 96.4 mm Hg (80.0-90.0) H 06/16/19 03:40 ABG O2 Saturation 96.8 % (95.0-99.0) 06/16/19 03:40 PT/INR, D-dimer PT 13.0 Sec. (12.2-14.9) 06/11/19 18:03 INR 0.97 (0.87-1.13) 06/11/19 18:03 Abnormal lab findings: Abnormal Labs 06/11/19 06/11/19 06/11/19 18:03 18:03 18:03 WBC MCH 25 L RDW 19.4 H Plt Count 124 L [place] % (Auto) 10.3 H Lymph # 1.1 L Seg Neutrophils % 74.4 H Seg Neuts % (Manual) Lymphocytes % (Manual) Seg Neutrophils # Man Lymphocytes # (Manual) ABG pH ABG pO2 ABG HCO3 ABG O2 Saturation ABG Base Excess ABG Hemoglobin Oxyhemoglobin Sodium 146 H Chloride Carbon Dioxide BUN 21 H Creatinine 0.4 L Glucose POC Glucose Calcium Magnesium 2.70 H CK-MB (CK-2) CK-MB (CK-2) Rel Index Albumin 3.5 L Urine WBC (Auto) Salicylates 1.0 L Acetaminophen 06/11/19 06/11/19 06/11/19 18:03 18:59 23:22 WBC MCH RDW Plt Count [place] % (Auto) Lymph # Seg Neutrophils % Seg Neuts % (Manual) Lymphocytes % (Manual) Seg Neutrophils # Man Lymphocytes # (Manual) ABG pH 7.340 L ABG pO2 76.0 L ABG HCO3 34.6 H ABG O2 Saturation ABG Base Excess 7.1 H ABG Hemoglobin 10.9 L Oxyhemoglobin 91.6 L Sodium Chloride Carbon Dioxide BUN Creatinine Glucose POC Glucose Calcium Magnesium CK-MB (CK-2) 5.5 H CK-MB (CK-2) Rel Index 5.5 H Albumin Urine WBC (Auto) Salicylates Acetaminophen < 5.0 L 04/25/20 04/25/20 04/25/20 00:29 02:04 04:20 WBC MCH RDW Plt Count [place] % (Auto) Lymph # Seg Neutrophils % Seg Neuts % (Manual) Lymphocytes % (Manual) Seg Neutrophils # Man Lymphocytes # (Manual) ABG pH 7.313 L ABG pO2 75.3 L ABG HCO3 29.9 H ABG O2 Saturation 94.3 L ABG Base Excess ABG Hemoglobin 10.8 L Oxyhemoglobin 92.0 L Sodium Chloride Carbon Dioxide BUN Creatinine Glucose POC Glucose 107 H Calcium Magnesium CK-MB (CK-2) CK-MB (CK-2) Rel Index Albumin Urine WBC (Auto) 30.0 H Salicylates Acetaminophen 06/12/19 06/12/19 06/12/19 05:09 05:09 05:09 WBC MCH 25 L RDW 19.4 H Plt Count 114 L [place] % (Auto) Lymph # Seg Neutrophils % Seg Neuts % (Manual) 91.0 H Lymphocytes % (Manual) 7.0 L Seg Neutrophils # Man Lymphocytes # (Manual) 0.4 L ABG pH ABG pO2 ABG HCO3 ABG O2 Saturation ABG Base Excess ABG Hemoglobin Oxyhemoglobin Sodium 147 H Chloride 107.4 H Carbon Dioxide BUN 19 H Creatinine 0.4 L Glucose 110 H POC Glucose Calcium 8.2 L Magnesium CK-MB (CK-2) CK-MB (CK-2) Rel Index 5.4 H Albumin Urine WBC (Auto) Salicylates Acetaminophen 06/12/19 06/12/19 06/13/19 06:42 23:21 04:14 WBC MCH RDW Plt Count [place] % (Auto) Lymph # Seg Neutrophils % Seg Neuts % (Manual) Lymphocytes % (Manual) Seg Neutrophils # Man Lymphocytes # (Manual) ABG pH ABG pO2 62.6 L ABG HCO3 29.6 H ABG O2 Saturation 91.0 L ABG Base Excess ABG Hemoglobin 10.3 L Oxyhemoglobin 89.0 L Sodium Chloride Carbon Dioxide BUN Creatinine Glucose POC Glucose 108 H 106 H Calcium Magnesium CK-MB (CK-2) CK-MB (CK-2) Rel Index Albumin Urine WBC (Auto) Salicylates Acetaminophen 06/13/19 06/13/19 06/13/19 04:54 04:54 12:20 WBC MCH 25 L RDW 19.2 H Plt Count 119 L [place] % (Auto) Lymph # Seg Neutrophils % Seg Neuts % (Manual) 95.0 H Lymphocytes % (Manual) 2.0 L Seg Neutrophils # Man 9.1 H Lymphocytes # (Manual) 0.2 L ABG pH ABG pO2 ABG HCO3 ABG O2 Saturation ABG Base Excess ABG Hemoglobin Oxyhemoglobin Sodium 149 H Chloride 111.4 H Carbon Dioxide BUN 26 H Creatinine 0.5 L Glucose 107 H POC Glucose 125 H Calcium Magnesium CK-MB (CK-2) CK-MB (CK-2) Rel Index Albumin Urine WBC (Auto) Salicylates Acetaminophen 06/13/19 06/14/19 06/14/19 17:25 03:44 04:55 WBC MCH RDW Plt Count [place] % (Auto) Lymph # Seg Neutrophils % Seg Neuts % (Manual) Lymphocytes % (Manual) Seg Neutrophils # Man Lymphocytes # (Manual) ABG pH ABG pO2 58.9 L ABG HCO3 29.5 H ABG O2 Saturation 88.7 L ABG Base Excess ABG Hemoglobin 10.2 L Oxyhemoglobin 86.7 L Sodium 150 H Chloride 110.4 H Carbon Dioxide BUN 20 H Creatinine 0.4 L Glucose 105 H POC Glucose 128 H Calcium Magnesium CK-MB (CK-2) CK-MB (CK-2) Rel Index Albumin Urine WBC (Auto) Salicylates Acetaminophen 06/14/19 06/14/19 06/14/19 05:37 11:58 21:00 WBC MCH RDW Plt Count [place] % (Auto) Lymph # Seg Neutrophils % Seg Neuts % (Manual) Lymphocytes % (Manual) Seg Neutrophils # Man Lymphocytes # (Manual) ABG pH 7.321 L ABG pO2 60.0 L ABG HCO3 31.4 H ABG O2 Saturation 87.3 L ABG Base Excess 4.1 H ABG Hemoglobin 10.6 L Oxyhemoglobin 84.8 L Sodium Chloride Carbon Dioxide BUN Creatinine Glucose POC Glucose 111 H 116 H Calcium Magnesium CK-MB (CK-2) CK-MB (CK-2) Rel Index Albumin Urine WBC (Auto) Salicylates Acetaminophen 06/15/19 06/15/19 06/15/19 00:22 03:25 05:08 WBC MCH RDW Plt Count [place] % (Auto) Lymph # Seg Neutrophils % Seg Neuts % (Manual) Lymphocytes % (Manual) Seg Neutrophils # Man Lymphocytes # (Manual) ABG pH 7.317 L ABG pO2 ABG HCO3 31.5 H ABG O2 Saturation ABG Base Excess 4.1 H ABG Hemoglobin 10.4 L Oxyhemoglobin 94.1 L Sodium Chloride Carbon Dioxide 31 H BUN 23 H Creatinine 0.3 L Glucose 120 H POC Glucose 108 H Calcium Magnesium CK-MB (CK-2) CK-MB (CK-2) Rel Index Albumin Urine WBC (Auto) Salicylates Acetaminophen 06/15/19 06/15/19 06/15/19 05:24 11:41 17:38 WBC MCH RDW Plt Count [place] % (Auto) Lymph # Seg Neutrophils % Seg Neuts % (Manual) Lymphocytes % (Manual) Seg Neutrophils # Man Lymphocytes # (Manual) ABG pH ABG pO2 ABG HCO3 ABG O2 Saturation ABG Base Excess ABG Hemoglobin Oxyhemoglobin Sodium Chloride Carbon Dioxide BUN Creatinine Glucose POC Glucose 111 H 154 H 115 H Calcium Magnesium CK-MB (CK-2) CK-MB (CK-2) Rel Index Albumin Urine WBC (Auto) Salicylates Acetaminophen 06/15/19 06/16/19 06/16/19 23:31 03:40 05:18 WBC MCH RDW Plt Count [place] % (Auto) Lymph # Seg Neutrophils % Seg Neuts % (Manual) Lymphocytes % (Manual) Seg Neutrophils # Man Lymphocytes # (Manual) ABG pH 7.313 L ABG pO2 96.4 H ABG HCO3 35.2 H ABG O2 Saturation ABG Base Excess 7.2 H ABG Hemoglobin 10.5 L Oxyhemoglobin 94.9 L Sodium Chloride Carbon Dioxide BUN Creatinine Glucose POC Glucose 161 H 158 H Calcium Magnesium CK-MB (CK-2) CK-MB (CK-2) Rel Index Albumin Urine WBC (Auto) Salicylates Acetaminophen 06/16/19 06/16/19 06/16/19 05:45 05:45 12:06 WBC 12.1 H MCH 25 L RDW 18.7 H Plt Count 93 L [place] % (Auto) Lymph # Seg Neutrophils % Seg Neuts % (Manual) 97.0 H Lymphocytes % (Manual) 0 L Seg Neutrophils # Man 11.7 H Lymphocytes # (Manual) 0.0 L ABG pH ABG pO2 ABG HCO3 ABG O2 Saturation ABG Base Excess ABG Hemoglobin Oxyhemoglobin Sodium Chloride Carbon Dioxide 33 H BUN 25 H Creatinine 0.3 L Glucose 165 H POC Glucose 178 H Calcium Magnesium CK-MB (CK-2) CK-MB (CK-2) Rel Index Albumin Urine WBC (Auto) Salicylates Acetaminophen Allied health notes reviewed: nursing
[2019-06-16] MEDS: DIGOXIN 0.5 MG/2 ML INJ IV SCH (17:50)
--- NOTE | 2019-06-16 18:33 | Progress Note ---
Assessment and Plan Assessment and plan: --Acute hypoxic and hypercapnic respiratory failure: Requiring intubation and ventilatory support Nebulizers, IV steroids, IV antibiotics inhalation steroids Pulmonary critical following, supportive care Wean as tolerated and extubate --Acute exacerbation of COPD : Nebulizers, tapering doses steroids --Left lung basilar density; no change to follow-up x-ray Continue empiric antibiotics follow cultures Sputum cultures positive for Pseudomonas --Paroxysmal A. fib/flutter; RVR On amiodarone, digoxin and Cardizem Closely monitor, cardiology following No chronic anticoagulation due to history of GI bleed --History of coronary artery disease/CHF Low-dose Lasix, continue other cardiac meds --Hypernatremia; resolved monitor sodium levels --History of depression; Resume antidepressive medications --Ongoing tobacco use; Will agency legal counsel smoking cessation when patient is more stable Nicotine patch as needed --Obesity; BMI 32.2 Patient needs weight reduction when medically stable --Tube feeding diet; per dietary recommendations --DVT prophylaxis; Lovenox --Full CODE STATUS Restraints in place Patient is critically ill with poor prognosis Closely monitor the patient and adjust management as needed Follow web consultant recommendations The high probability of a clinically significant, sudden or life threatening deterioration of the [respiratory, CVS] system(s) required my full and direct attention, intervention and personal management. The aggregate critical care time was [34] minutes. This time is in addition to time spent performing reported procedures but includes the following: [x] Data Review and interpretation [x] Patient assessment and monitoring of vital signs [x] Documentation [x] Medication orders and management Critical care time 40 minutes History Interval history: Patient seen and examined at bedside this morning in ICU Patient's chart, medication list, consults recommendations and tests reviewed Patient remains intubated on ventilatory support Has tachycardia on the monitor, not in acute distress Vital signs reviewed Hospitalist Physical - Constitutional Vitals: Temp Pulse Resp BP Pulse Ox 99.2 F 109 H 16 127/68 97 06/16/19 16:00 06/16/19 18:15 06/16/19 18:15 06/16/19 18:15 06/16/19 18:15 General appearance: Present: no acute distress, well-nourished, obese, other (Intubated on ventilatory support sedated) - EENT Eyes: Present: PERRL, EOM intact - Neck Neck: Present: supple, normal ROM - Respiratory Respiratory effort: normal Respiratory: bilateral: diminished, negative: rales, rhonchi, wheezing - Cardiovascular Rhythm: regular Heart Sounds: Present: S1 & S2 (Tachycardia) - Extremities Extremities: no ischemia, No edema - Abdominal General gastrointestinal: soft, non-tender, non-distended, normal bowel sounds - Integumentary Integumentary: Present: clear, warm - Psychiatric Psychiatric: other (Intubated on vent) - Neurologic Neurologic: other (Intubated on vent) Results - Labs CBC & Chem 7: 06/16/19 05:45 06/16/19 05:45 Labs: Laboratory Last Values WBC 12.1 K/mm3 (4.5-11.0) H 06/16/19 05:45 RBC 4.36 M/mm3 (3.65-5.03) 06/16/19 05:45 Hgb 10.7 gm/dl (10.1-14.3) 06/16/19 05:45 Hct 35.5 % (30.3-42.9) 06/16/19 05:45 MCV 82 fl (79-97) 06/16/19 05:45 MCH 25 pg (28-32) L 06/16/19 05:45 MCHC 30 % (30-34) 06/16/19 05:45 RDW 18.7 % (13.2-15.2) H 06/16/19 05:45 Plt Count 93 K/mm3 (140-440) L 06/16/19 05:45 Lymph % (Auto) 13.7 % (13.4-35.0) 06/11/19 18:03 Gordon % (Auto) 10.3 % (0.0-7.3) H 06/11/19 18:03 Eos % (Auto) 0.8 % (0.0-4.3) 06/11/19 18:03 Baso % (Auto) 0.8 % (0.0-1.8) 06/11/19 18:03 Lymph # 1.1 K/mm3 (1.2-5.4) L 06/11/19 18:03 Gordon # 0.8 K/mm3 (0.0-0.8) 06/11/19 18:03 Eos # 0.1 K/mm3 (0.0-0.4) 06/11/19 18:03 Baso # 0.1 K/mm3 (0.0-0.1) 06/11/19 18:03 Add Manual Diff Complete 06/16/19 05:45 Total Counted 100 06/16/19 05:45 Seg Neutrophils % Child Psychiatrist 06/16/19 05:45 Seg Neuts % (Manual) 97.0 % (40.0-70.0) H 06/16/19 05:45 Band Neutrophils % 0 % 06/16/19 05:45 Lymphocytes % (Manual) 0 % (13.4-35.0) L 06/16/19 05:45 Reactive Lymphs % (Man) 0 % 06/16/19 05:45 Monocytes % (Manual) 3.0 % (0.0-7.3) 06/16/19 05:45 Eosinophils % (Manual) 0 % (0.0-4.3) 06/16/19 05:45 Basophils % (Manual) 0 % (0.0-1.8) 06/16/19 05:45 Metamyelocytes % 0 % 06/16/19 05:45 Myelocytes % 0 % 06/16/19 05:45 Promyelocytes % 0 % 06/16/19 05:45 Blast Cells % 0 % 06/16/19 05:45 Nucleated RBC % Not Reportable 06/16/19 05:45 Seg Neutrophils # 6.0 K/mm3 (1.8-7.7) 06/11/19 18:03 Seg Neutrophils # Man 11.7 K/mm3 (1.8-7.7) H 06/16/19 05:45 Band Neutrophils # 0.0 K/mm3 06/16/19 05:45 Lymphocytes # (Manual) 0.0 K/mm3 (1.2-5.4) L 06/16/19 05:45 Abs React Lymphs (Man) 0.0 K/mm3 06/16/19 05:45 Monocytes # (Manual) 0.4 K/mm3 (0.0-0.8) 06/16/19 05:45 Eosinophils # (Manual) 0.0 K/mm3 (0.0-0.4) 06/16/19 05:45 Basophils # (Manual) 0.0 K/mm3 (0.0-0.1) 06/16/19 05:45 Metamyelocytes # 0.0 K/mm3 06/16/19 05:45 Myelocytes # 0.0 K/mm3 06/16/19 05:45 Promyelocytes # 0.0 K/mm3 06/16/19 05:45 Blast Cells # 0.0 K/mm3 06/16/19 05:45 WBC Morphology Not Reportable 06/16/19 05:45 Hypersegmented Neuts Not Reportable 06/16/19 05:45 Hyposegmented Neuts Not Reportable 06/16/19 05:45 Hypogranular Neuts Not Reportable 06/16/19 05:45 Smudge Cells Not Reportable 06/16/19 05:45 Toxic Granulation Not Reportable 06/16/19 05:45 Toxic Vacuolation Not Reportable 06/16/19 05:45 Dohle Bodies Not Reportable 06/16/19 05:45 Pelger-Huet Anomaly Not Reportable 06/16/19 05:45 Neha Rods Not Reportable 06/16/19 05:45 Platelet Estimate Consistent w auto 06/16/19 05:45 Clumped Platelets Not Reportable 06/16/19 05:45 Plt Clumps, EDTA Not Reportable 06/16/19 05:45 Large Platelets Not Reportable 06/16/19 05:45 Giant Platelets Not Reportable 06/16/19 05:45 Platelet Satelliting Not Reportable 06/16/19 05:45 Plt Morphology Comment Not Reportable 06/16/19 05:45 RBC Morphology Not Reportable 06/16/19 05:45 Dimorphic RBCs Not Reportable 06/16/19 05:45 Polychromasia Not Reportable 06/16/19 05:45 Hypochromasia 1+ 06/16/19 05:45 Poikilocytosis Not Reportable 06/16/19 05:45 Anisocytosis Few 06/16/19 05:45 Microcytosis Not Reportable 06/16/19 05:45 Macrocytosis Not Reportable 06/16/19 05:45 Spherocytes Not Reportable 06/16/19 05:45 Pappenheimer Bodies Not Reportable 06/16/19 05:45 Sickle Cells Not Reportable 06/16/19 05:45 Target Cells Not Reportable 06/16/19 05:45 Tear Drop Cells Not Reportable 06/16/19 05:45 Ovalocytes Rare 06/16/19 05:45 Helmet Cells Not Reportable 06/16/19 05:45 [place] Bodies Not Reportable 06/16/19 05:45 Hanahan Rings Not Reportable 06/16/19 05:45 [place] Cells Not Reportable 06/16/19 05:45 Bite Cells Not Reportable 06/16/19 05:45 Crenated Cell Not Reportable 06/16/19 05:45 Elliptocytes Not Reportable 06/16/19 05:45 Acanthocytes (Spur) Not Reportable 06/16/19 05:45 Rouleaux Not Reportable 06/16/19 05:45 Hemoglobin C Crystals Not Reportable 06/16/19 05:45 Schistocytes Not Reportable 06/16/19 05:45 Malaria parasites Not Reportable 06/16/19 05:45 Hernan Bodies Not Reportable 06/16/19 05:45 Hem Pathologist Commnt No 06/16/19 05:45 PT 13.0 Sec. (12.2-14.9) 06/11/19 18:03 INR 0.97 (0.87-1.13) 06/11/19 18:03 ABG pH 7.313 pH Units (7.350-7.450) L 06/16/19 03:40 ABG pCO2 71.0 mm Hg 06/16/19 03:40 ABG pO2 96.4 mm Hg (80.0-90.0) H 06/16/19 03:40 ABG HCO3 35.2 mmol/L (20.0-26.0) H 06/16/19 03:40 ABG O2 Saturation 96.8 % (95.0-99.0) 06/16/19 03:40 ABG O2 Content 14.2 (0.0-44) 06/16/19 03:40 ABG Base Excess 7.2 mmol/L (-2.0-3.0) H 06/16/19 03:40 ABG Hemoglobin 10.5 gm/dl (12.0-16.0) L 06/16/19 03:40 ABG Carboxyhemoglobin 1.5 % (0.0-5.0) 06/16/19 03:40 ABG Methemoglobin 0.4 % (0.0-1.5) 06/16/19 03:40 Oxyhemoglobin 94.9 % (95.0-99.0) L 06/16/19 03:40 FiO2 60 % 06/16/19 03:40 Sodium 144 mmol/L (137-145) 06/16/19 05:45 Potassium 4.4 mmol/L (3.6-5.0) 06/16/19 05:45 Chloride 104.0 mmol/L (98-107) 06/16/19 05:45 Carbon Dioxide 33 mmol/L (22-30) H 06/16/19 05:45 Anion Gap 11 mmol/L 06/16/19 05:45 BUN 25 mg/dL (7-17) H 06/16/19 05:45 Creatinine 0.3 mg/dL (0.7-1.2) L 06/16/19 05:45 Estimated GFR > 60 ml/min 06/16/19 05:45 BUN/Creatinine Ratio 83 % 06/16/19 05:45 Glucose 165 mg/dL (65-100) H 06/16/19 05:45 POC Glucose 180 (70-105) H 06/16/19 17:55 Calcium 8.9 mg/dL (8.4-10.2) 06/16/19 05:45 Phosphorus 4.50 mg/dL (2.5-4.5) 06/15/19 05:08 Magnesium 2.20 mg/dL (1.7-2.3) 06/15/19 05:08 Total Bilirubin 0.30 mg/dL (0.1-1.2) 06/11/19 18:03 AST 14 units/L (5-40) 06/11/19 18:03 ALT 8 units/L (7-56) 06/11/19 18:03 Alkaline Phosphatase 85 units/L (35-129) 06/11/19 18:03 Total Creatine Kinase 74 units/L (30-135) 06/12/19 05:09 CK-MB (CK-2) 4.0 ng/mL (0.0-4.0) 06/12/19 05:09 CK-MB (CK-2) Rel Index 5.4 (0-4) H 06/12/19 05:09 Troponin T < 0.010 ng/mL (0.00-0.029) 06/12/19 05:09 Total Protein 6.4 g/dL (6.3-8.2) 06/11/19 18:03 Albumin 3.5 g/dL (3.9-5) L 06/11/19 18:03 Albumin/Globulin Ratio 1.2 % 06/11/19 18:03 Urine Color Yellow (Yellow) 06/12/19 02:04 Urine Turbidity Clear (Clear) 06/12/19 02:04 Urine pH 5.0 (5.0-7.0) 06/12/19 02:04 Ur Specific [place] 1.027 (1.003-1.030) 06/12/19 02:04 Urine Protein 30 mg/dl mg/dL (Negative) 06/12/19 02:04 Urine Glucose (UA) Neg mg/dL (Negative) 06/12/19 02:04 Urine Ketones 80 mg/dL (Negative) 06/12/19 02:04 Urine Blood Lg (Negative) 06/12/19 02:04 Urine Nitrite Neg (Negative) 06/12/19 02:04 Urine Bilirubin Neg (Negative) 06/12/19 02:04 Urine Urobilinogen 2.0 mg/dL (<2.0) 06/12/19 02:04 Ur Leukocyte Esterase Neg (Negative) 06/12/19 02:04 Urine WBC (Auto) 30.0 /HPF (0.0-6.0) H 06/12/19 02:04 Urine RBC (Auto) > 182.0 /HPF (0.0-6.0) 06/12/19 02:04 Urine Bacteria (Auto) 1+ /HPF (Negative) 06/12/19 02:04 Urine Mucus 3+ /HPF 06/12/19 02:04 Urine Yeast (Budding) Few /HPF 06/12/19 02:04 Salicylates 1.0 mg/dL (2.8-20.0) L 06/11/19 18:03 Acetaminophen < 5.0 ug/mL (10.0-30.0) L 06/11/19 18:03 Microbiology: Microbiology 06/11/19 19:19 Peripheral/Venous Blood Culture - Preliminary NO GROWTH AFTER 4 DAYS 06/11/19 19:16 Peripheral/Venous Blood Culture - Preliminary NO GROWTH AFTER 4 DAYS Harley/IV: Voiding Method Indwelling Catheter IV Catheter Type [Left Peripheral IV Antecubital] IV Catheter Type [Right Wrist] Peripheral IV IV Catheter Type [Right Hand] Peripheral IV Active Medications - Current Medications Current Medications: Generic Name Dose Route Start Last Admin Trade Name Freq PRN Reason Stop Dose Admin Acetaminophen 650 mg 06/11/19 22:48 Tylenol PO Q4H PRN Pain MILD(1-3)/Fever >100.5/PRAJAPATI Albuterol 2.5 mg 06/14/19 08:20 Proventil IH Q4HRT PRN Shortness Of Breath Albuterol/Ipratropium 1 ampul 06/14/19 14:00 06/16/19 14:34 Duoneb *Not For Prn Use* IH 1 ampul TIDRT DOMINICK Administration Alprazolam 0.25 mg 06/13/19 10:23 06/13/19 23:32 Xanax PO 0.25 mg Q8H PRN Administration Anxiety Amiodarone HCl 200 mg 06/17/19 10:00 Cordarone PO QDAY DOMINICK Lipase/Protease/Amylase 1 each 06/13/19 17:52 Pancreazmarlene Pereira 10,500 Unit FEEDTUBE PRN PRN For Clogged Feeding Tube Arformoterol Tartrate 15 mcg 06/14/19 20:00 06/16/19 08:46 Brovana Nebu IH 15 mcg Q12HRT DOMINICK Administration Budesonide 0.5 mg 06/14/19 20:00 06/16/19 08:46 Pulmicort IH 0.5 mg Q12HRT DOMINICK Administration Dextrose 50 ml 06/11/19 22:48 D50w (25gm) Syringe IV Q30MIN PRN Hypoglycemia Protocol Digoxin 0.125 mg 06/16/19 17:00 06/16/19 17:50 Lanoxin IV 0.125 mg QDAY@1700 DOMINICK Administration Diltiazem HCl 30 mg 06/16/19 11:30 06/16/19 13:10 Cardizem PO 30 mg Q8HR DOMINICK Administration Enoxaparin Sodium 40 mg 06/14/19 22:00 06/15/19 22:21 Enoxaparin SUB-Q 40 mg QDAY@2200 DOMINICK Administration Fentanyl 50 mcg 06/11/19 17:45 06/11/19 20:52 Sublimaze IV 50 mcg Q10MIN PRN Administration ANALGESIA Furosemide 20 mg 06/14/19 10:00 06/16/19 09:26 Lasix IV 20 mg QDAY DOMINICK Administration Hydrophilic Ointment 1 applic 06/11/19 17:44 Vaseline Lip Therapy TP Q2HR PRN Dry Lips Fentanyl Citrate 2,000 mcg in 100 mls @ 3.742 mls/hr 06/11/19 18:00 06/16/19 09:24 Fentanyl Drip Premix IV 1 mcg/kg/hr TITR DOMINICK 3.742 mls/hr Administration Protocol 1 MCG/KG/HR Lorazepam 100 mg/ Sodium 100 mls @ 1 mls/hr 06/11/19 18:00 06/14/19 22:15 Chloride/ Miscellaneous IV 0 mg/hr Information TITR DOMINICK 0 mls/hr Titration Protocol 1 MG/HR Cefepime HCl 1 gm in 100 mls @ 200 mls/hr 06/14/19 14:00 06/16/19 13:10 Cefepime/Ns 1 Gm/100 Ml IV 06/19/19 13:59 200 mls/hr Q8HR DOMINICK Administration Protocol Diltiazem HCl 100 mg in 100 mls @ 2.5 mls/hr 06/15/19 11:00 Cardizem/D5w 100mg/100ml IV TITR DOMINICK 2.5 MG/HR Insulin Human Lispro 0 unit 06/12/19 00:00 06/16/19 17:53 Humalog SUB-Q 2 unit Q6HR [facility] Administration Protocol Lansoprazole 30 mg 06/13/19 11:00 06/16/19 09:26 Prevacid Solutab FEEDTUBE 30 mg QDAY [facility] Administration Lisinopril 10 mg 06/14/19 10:00 06/16/19 10:22 Zestril PO Not Given DAILY [facility] Methylprednisolone Sodium Succinate 80 mg 06/13/19 17:45 06/16/19 17:49 Solu-Medrol IV 80 mg Q6HR [facility] Administration Multi-Ingred Cream/Lotion/Oil/Oint 1 applic 06/11/19 17:44 Artificial Tears Ophth Oint OU Q4HR PRN Dry Eye(s) Ondansetron HCl 4 mg 06/11/19 22:48 Zofran IV Q8H PRN Nausea And Vomiting Quetiapine Fumarate 300 mg 06/13/19 11:00 06/16/19 09:26 Seroquel PO 300 mg BID DOMINICK Administration Simple Syrup 15 ml 06/13/19 17:52 Simple Syrup FEEDTUBE PRN PRN Hypoglycemia Simple Syrup 30 ml 06/13/19 17:52 Simple Syrup FEEDTUBE PRN PRN Hypoglycemia Sodium Bicarbonate 325 mg 06/13/19 17:52 Sodium Bicarbonate FEEDTUBE PRN PRN For Clogged Feeding Tube Sodium Chloride 10 ml 06/12/19 10:00 06/16/19 09:24 Sodium Chloride Flush Syringe 10 Ml IV 10 ml BID DOMINICK Administration Sodium Chloride 10 ml 06/11/19 22:48 06/13/19 22:00 Sodium Chloride Flush Syringe 10 Ml IV 10 ml PRN PRN Administration LINE FLUSH Venlafaxine HCl 75 mg 06/13/19 14:00 06/16/19 13:10 Effexor PO 75 mg TID DOMINICK Administration Nutrition/Malnutrition Assess - Dietary Evaluation Nutrition/Malnutrition Findings: Nutrition Notes Start: 06/12/19 11:05 Freq: Status: Active Protocol: Document 06/16/19 13:28 LM (Rec: 06/16/19 13:45 LM [email or web address]) Nutrition Notes Initial or Follow up Reassessment Current Diagnosis COPD,Coronary Artery Disease, Hypertension,Heart Failure, Respiratory Failure Other Pertinent Diagnosis COPD exacerbation Current Diet Promote 1.0 at 60ml/hr Labs/Tests BG 165 Na 144 Pertinent Medications Humalog Solumedrol Height 5 ft Weight 74.843 kg Graham Body Weight (kg) 45.45 BMI 32.2 Weight Status Obese Subjective/Other Information Promote running at goal. Na in normal range. Percent of energy/protein needs met: 97%/99% Burn Absent Trauma Absent Current % PO Negligible Minimum of two criteria No #1 Nutrition Diagnosis Inadequate oral intake Diagnosis Progress(for reassessment Continues documentation) Is patient on ventilator? Yes Is Patient Ambulatory and/or Out of Bed No REE-([facility]-confined to bed) [phone] Calculation Used for Recommendations [facility] Additional Notes Pro needs 2g/kg IBW: 91g/day 1ml/kcal Nutrition Intervention Change Diet Order: Continue TF Nutrition Support: Promote 1.0 at 60ml/hr Flush 150 q4h for hypernatremia Flush 50ml q4h once resolved Kcal 1,440 Protein (gm) 90 Fluid (mL) 1,208 Goal #1 TF tolerance Goal #2 Meet at least 75% of energy and protein needs Anticipated Discharge Needs: Unable to identify at this time Follow-Up By: 06/21/19 Additional Comments F/U for TF tolerance
[2019-06-16] MEDS: ENOXAPARIN 40 MG/0.4 ML INJ SUB-Q SCH (21:44)
--- NOTE | 2019-06-17 03:08 | XRay Report ---
CHEST 1 VIEW 0210 INDICATION / CLINICAL INFORMATION: follow up respiratory failure. COMPARISON: 06/16/2019 FINDINGS: SUPPORT DEVICES: Stable HEART / MEDIASTINUM: Stable LUNGS / PLEURA: Bibasilar atelectasis and/or infiltrate continues, again more left than right. There appears to be mild congestion and there may be slight interstitial edema. No pneumothorax. ADDITIONAL FINDINGS: No significant additional findings. IMPRESSION: Mildly worsening congestion Signer Name: Alex Shay MD Signed: 06/17/2019 3:03 AM Workstation Name: [id number]
[2019-06-17 04:26] LABS: ABG Base Excess 8.8 mmol/L (-2.0-3.0); ABG HCO3 35.2 mmol/L (20.0-26.0); ABG Methemoglobin 0.4 % (0.0-1.5); ABG Oxygen Saturation 94.5 % (95.0-99.0); ABG PCO2 58.6 mm Hg; ABG PH 7.397 pH Units (7.350-7.450); ABG PO2 73.2 mm Hg (80.0-90.0)
[2019-06-17 05:52] LABS: BUN/Creatinine Ratio 103; Blood Urea Nitrogen 31 mg/dL (7-17); Hemolysis Index 4
[2019-06-17] MEDS: dilTIAZem 30 MG TAB PO SCH ×3 (06:14→21:03)
[2019-06-17] MEDS: INSULIN LISPRO 100 UNIT/ML SUB-Q SCH ×3 (06:14→18:07)
[2019-06-17] MEDS: methylPREDNISolone Sod Succinate 125 MG/2 ML INJ IV SCH ×4 (06:15→23:59)
[2019-06-17] MEDS: fentaNYL DRIP Premix 2,000 MCG/100 ML BAG IV SCH (06:15)
[2019-06-17] MEDS: CEFEPIME/NS 1 GM/100 ML 1 GM/100 ML BAG IV SCH ×3 (06:15→21:03)
[2019-06-17] MEDS: LANSOPRAZOLE 30 MG SOLUTAB FEEDTUBE SCH ×2 (08:24→10:21)
[2019-06-17] MEDS: FUROSEMIDE 20 MG/2 ML INJ IV SCH (08:25)
[2019-06-17] MEDS: VENLAFAXINE 75 MG TAB PO SCH ×3 (08:25→21:04)
[2019-06-17] MEDS: LISINOPRIL 10 MG TAB PO SCH (08:25)
[2019-06-17] MEDS: QUEtiapine 100 MG TAB PO SCH ×3 (08:26→21:04)
[2019-06-17] MEDS: AMIODARONE 200 MG TAB PO SCH ×2 (08:26→10:28)
--- NOTE | 2019-06-17 09:00 | Progress Note ---
Assessment and Plan Acute and chronic hypoxic and hypercapnic respiratory failure on MVS Acute exacerbation of COPD Thrombocytopenia History of coronary artery disease/CHF History of depression; Obesity; BMI 32.2 Chronic narcotic dependence -Continue with MVS, Lung protective strategies, monitor airway pressures -Adjust minute ventilation as indicated for better gas exchange -VAP bundle addressed -Aspiration precautions, HOB>40 -Daily assessment for readiness for weaning; SAT and SBT - Fentanyl and Lorazepam infusions titrate to RASS -1 -Antibiotics for severe AE-COPD -Steroids with slow taper -Bronchodilators with pulmonary hygiene -Stress ulcer prophylaxis, VTE prophylaxis -Initiate enteric nutritional support, once OGT placement is confirmed. -Monitor glycemic control, with target blood glucose 140-180 mg/dL while critically ill. -Avoid hypoglycemia -RD consult placed - Wean supplemental oxygen for target O2 sat's > 90% -ABG and CXR in am -Follow cultures and adjust antibiotic therapy for VITO and culture results - Avoid benzodiazepines to reduce the possibility of delirium - prn analgesia per CPOT score - Mobility protocol , off loading and skin assessment per protocol for pressure ulcer prevention - Monitor hemodynamics closely -Nicotine withdrawal precautions -Smoking cessation counselling once she is extubated and able to participate in the discussion -Chronic home medications as indicated - continue other care per attending / other consultants CONDITION: CRITICAL PROGNOSIS: GUARDED CODE STATUS: FULL CODE Life threatening condition from acute and chronic hypoxic-hypercapnic respiratory failure with ventilator dependency Mortality/Morbidity- High Complexity of decision making- High The high probability of a clinically significant, sudden or life-threatening deterioration of the [respiratory, ] system(s) required my full and direct attention, intervention and personal management. The aggregate critical care time was [31] minutes without overlap. Time includes spent on; [x] Data Review and interpretation [x] Patient assessment and monitoring of vital signs [x] Documentation [x] Medication orders and management Subjective Date of service: 06/17/19 Principal diagnosis: Ac and ch hypoxic & hypercapnic resp failure; AE-COPD; Tobacco use disorder Interval history: Patient is seen today for: Ac and ch hypoxic hypercapnic resp failure; AE-COPD; Tobacco use disorder/Nicotine dependence; Hypernatremia; HTN (hypotensive at presentation 0; Chronic narcotic dependence ; Chronic back pain; Anxiety disorder Seen and examined at bedside; 24-hour events reviewed; nursing and respiratory care staff consulted; no adverse overnight events reported to me; laying in bed; AMS is persistent; remains hypoxemic on MVS; tachyarrthymias reported whenever sedation is weaned; Objective Vital Signs - 12hr 06/16/19 06/16/19 06/16/19 21:15 21:30 21:44 Temperature Pulse Rate 79 77 81 Pulse Rate [ From Monitor] Respiratory 16 16 Rate Blood Pressure 116/57 113/60 113/60 O2 Sat by Pulse 92 92 Oximetry 06/16/19 06/16/19 06/16/19 21:45 22:00 22:16 Temperature Pulse Rate 79 98 H 134 H Pulse Rate [ From Monitor] Respiratory 16 16 16 Rate Blood Pressure 116/61 98/52 129/48 O2 Sat by Pulse 93 93 88 Oximetry 06/16/19 06/16/19 06/16/19 22:30 22:45 23:00 Temperature Pulse Rate 122 H 117 H 112 H Pulse Rate [ From Monitor] Respiratory 17 15 16 Rate Blood Pressure 129/48 104/55 101/56 O2 Sat by Pulse 88 88 89 Oximetry 06/16/19 06/16/19 06/16/19 23:04 23:15 23:30 Temperature Pulse Rate 110 H 114 H 116 H Pulse Rate [ From Monitor] Respiratory 15 16 15 Rate Blood Pressure 101/56 97/55 109/60 O2 Sat by Pulse 89 89 89 Oximetry 06/16/19 06/16/19 06/17/19 23:45 23:50 00:00 Temperature 98.7 F 98.7 F Pulse Rate 108 H 112 H Pulse Rate [ 101 H From Monitor] Respiratory 19 14 Rate Blood Pressure 107/57 110/63 O2 Sat by Pulse 90 95 Oximetry 06/17/19 06/17/19 06/17/19 00:15 00:30 00:45 Temperature Pulse Rate 114 H 117 H 116 H Pulse Rate [ From Monitor] Respiratory 15 17 17 Rate Blood Pressure 117/62 116/61 117/63 O2 Sat by Pulse 96 96 96 Oximetry 06/17/19 06/17/19 06/17/19 01:00 01:15 01:30 Temperature Pulse Rate 116 H 114 H 113 H Pulse Rate [ From Monitor] Respiratory 13 17 17 Rate Blood Pressure 116/58 114/57 113/61 O2 Sat by Pulse 96 97 96 Oximetry 06/17/19 06/17/19 06/17/19 01:45 02:00 02:15 Temperature Pulse Rate 111 H 110 H 107 H Pulse Rate [ From Monitor] Respiratory 14 18 16 Rate Blood Pressure 109/61 109/61 115/62 O2 Sat by Pulse 96 96 96 Oximetry 06/17/19 06/17/19 06/17/19 02:30 02:45 03:00 Temperature Pulse Rate 109 H 108 H 107 H Pulse Rate [ From Monitor] Respiratory 15 15 16 Rate Blood Pressure 112/59 109/59 107/57 O2 Sat by Pulse 96 96 96 Oximetry 06/17/19 06/17/19 06/17/19 03:15 03:25 03:30 Temperature Pulse Rate 102 H 103 H 105 H Pulse Rate [ From Monitor] Respiratory 17 14 Rate Blood Pressure 117/62 117/62 109/60 O2 Sat by Pulse 96 96 96 Oximetry 06/17/19 06/17/19 06/17/19 03:45 03:50 04:00 Temperature 98.5 F 98.5 F Pulse Rate 101 H 103 H Pulse Rate [ 101 H From Monitor] Respiratory 15 17 Rate Blood Pressure 114/60 108/60 O2 Sat by Pulse 97 95 Oximetry 06/17/19 06/17/19 06/17/19 04:15 04:30 04:45 Temperature Pulse Rate 104 H 94 H 90 Pulse Rate [ From Monitor] Respiratory 16 16 16 Rate Blood Pressure 116/59 116/59 103/58 O2 Sat by Pulse 97 98 98 Oximetry 06/17/19 06/17/19 06/17/19 05:00 05:15 05:30 Temperature Pulse Rate 87 87 84 Pulse Rate [ From Monitor] Respiratory 16 16 19 Rate Blood Pressure 106/58 113/59 110/62 O2 Sat by Pulse 98 98 98 Oximetry 06/17/19 06/17/19 06/17/19 05:45 06:00 06:14 Temperature Pulse Rate 83 80 79 Pulse Rate [ From Monitor] Respiratory 16 17 Rate Blood Pressure 113/60 112/59 112/59 O2 Sat by Pulse 97 97 Oximetry 06/17/19 06/17/19 06/17/19 06:15 06:30 06:45 Temperature Pulse Rate 77 74 75 Pulse Rate [ From Monitor] Respiratory 16 16 16 Rate Blood Pressure 111/58 105/55 103/54 O2 Sat by Pulse 96 95 96 Oximetry 06/17/19 06/17/19 06/17/19 07:00 07:15 07:30 Temperature Pulse Rate 72 72 71 Pulse Rate [ From Monitor] Respiratory 16 15 16 Rate Blood Pressure 107/54 106/56 106/55 O2 Sat by Pulse 96 98 94 Oximetry 06/17/19 06/17/19 06/17/19 07:45 08:00 08:25 Temperature 98.6 F Pulse Rate 69 69 68 Pulse Rate [ 68 From Monitor] Respiratory 14 15 Rate Blood Pressure 108/57 109/56 111/58 O2 Sat by Pulse 100 86 Oximetry 06/17/19 08:43 Temperature Pulse Rate 68 Pulse Rate [ From Monitor] Respiratory Rate Blood Pressure 111/58 O2 Sat by Pulse 97 Oximetry Constitutional: no acute distress, other (elderly looking obese CF, normocephalic on MVS without signidficant dyssynchrony) Eyes: non-icteric ENT: oropharynx moist, other (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) Neck: supple, no lymphadenopathy, no JVD Effort: mildly labored Ascultation: Bilateral: diminished breath sounds, rhonchi Percussion: Bilateral: not dull Cardiovascular: regular rate and rhythm Gastrointestinal: normoactive bowel sounds, soft, non-tender, non-distended Integumentary: normal Extremities: no cyanosis, no edema, pulses normal, no ischemia or petechiae Neurologic: non-focal exam (grossly), pupils equal and round, unable to assess Psychiatric: other (Unable to assess re: AMS) CBC and BMP: 06/16/19 05:45 06/17/19 04:57 ABG, PT/INR, D-dimer: ABG ABG pH 7.397 pH Units (7.350-7.450) 06/17/19 03:35 ABG pCO2 58.6 mm Hg 06/17/19 03:35 ABG pO2 73.2 mm Hg (80.0-90.0) L 06/17/19 03:35 ABG O2 Saturation 94.5 % (95.0-99.0) L 06/17/19 03:35 PT/INR, D-dimer PT 13.0 Sec. (12.2-14.9) 06/11/19 18:03 INR 0.97 (0.87-1.13) 06/11/19 18:03 Abnormal lab findings: Abnormal Labs 06/11/19 06/11/19 06/11/19 18:03 18:03 18:03 WBC MCH 25 L RDW 19.4 H Plt Count 124 L [place] % (Auto) 10.3 H Lymph # 1.1 L Seg Neutrophils % 74.4 H Seg Neuts % (Manual) Lymphocytes % (Manual) Seg Neutrophils # Man Lymphocytes # (Manual) ABG pH ABG pO2 ABG HCO3 ABG O2 Saturation ABG Base Excess ABG Hemoglobin Oxyhemoglobin Sodium 146 H Chloride Carbon Dioxide BUN 21 H Creatinine 0.4 L Glucose POC Glucose Calcium Magnesium 2.70 H CK-MB (CK-2) CK-MB (CK-2) Rel Index Albumin 3.5 L Urine WBC (Auto) Salicylates 1.0 L Acetaminophen 06/11/19 06/11/19 06/11/19 18:03 18:59 23:22 WBC MCH RDW Plt Count [place] % (Auto) Lymph # Seg Neutrophils % Seg Neuts % (Manual) Lymphocytes % (Manual) Seg Neutrophils # Man Lymphocytes # (Manual) ABG pH 7.340 L ABG pO2 76.0 L ABG HCO3 34.6 H ABG O2 Saturation ABG Base Excess 7.1 H ABG Hemoglobin 10.9 L Oxyhemoglobin 91.6 L Sodium Chloride Carbon Dioxide BUN Creatinine Glucose POC Glucose Calcium Magnesium CK-MB (CK-2) 5.5 H CK-MB (CK-2) Rel Index 5.5 H Albumin Urine WBC (Auto) Salicylates Acetaminophen < 5.0 L 06/12/19 06/12/19 06/12/19 00:29 02:04 04:20 WBC MCH RDW Plt Count [place] % (Auto) Lymph # Seg Neutrophils % Seg Neuts % (Manual) Lymphocytes % (Manual) Seg Neutrophils # Man Lymphocytes # (Manual) ABG pH 7.313 L ABG pO2 75.3 L ABG HCO3 29.9 H ABG O2 Saturation 94.3 L ABG Base Excess ABG Hemoglobin 10.8 L Oxyhemoglobin 92.0 L Sodium Chloride Carbon Dioxide BUN Creatinine Glucose POC Glucose 107 H Calcium Magnesium CK-MB (CK-2) CK-MB (CK-2) Rel Index Albumin Urine WBC (Auto) 30.0 H Salicylates Acetaminophen 06/12/19 06/12/19 06/12/19 05:09 05:09 05:09 WBC MCH 25 L RDW 19.4 H Plt Count 114 L [place] % (Auto) Lymph # Seg Neutrophils % Seg Neuts % (Manual) 91.0 H Lymphocytes % (Manual) 7.0 L Seg Neutrophils # Man Lymphocytes # (Manual) 0.4 L ABG pH ABG pO2 ABG HCO3 ABG O2 Saturation ABG Base Excess ABG Hemoglobin Oxyhemoglobin Sodium 147 H Chloride 107.4 H Carbon Dioxide BUN 19 H Creatinine 0.4 L Glucose 110 H POC Glucose Calcium 8.2 L Magnesium CK-MB (CK-2) CK-MB (CK-2) Rel Index 5.4 H Albumin Urine WBC (Auto) Salicylates Acetaminophen 06/12/19 06/12/19 06/13/19 06:42 23:21 04:14 WBC MCH RDW Plt Count [place] % (Auto) Lymph # Seg Neutrophils % Seg Neuts % (Manual) Lymphocytes % (Manual) Seg Neutrophils # Man Lymphocytes # (Manual) ABG pH ABG pO2 62.6 L ABG HCO3 29.6 H ABG O2 Saturation 91.0 L ABG Base Excess ABG Hemoglobin 10.3 L Oxyhemoglobin 89.0 L Sodium Chloride Carbon Dioxide BUN Creatinine Glucose POC Glucose 108 H 106 H Calcium Magnesium CK-MB (CK-2) CK-MB (CK-2) Rel Index Albumin Urine WBC (Auto) Salicylates Acetaminophen 06/13/19 06/13/19 06/13/19 04:54 04:54 12:20 WBC MCH 25 L RDW 19.2 H Plt Count 119 L [place] % (Auto) Lymph # Seg Neutrophils % Seg Neuts % (Manual) 95.0 H Lymphocytes % (Manual) 2.0 L Seg Neutrophils # Man 9.1 H Lymphocytes # (Manual) 0.2 L ABG pH ABG pO2 ABG HCO3 ABG O2 Saturation ABG Base Excess ABG Hemoglobin Oxyhemoglobin Sodium 149 H Chloride 111.4 H Carbon Dioxide BUN 26 H Creatinine 0.5 L Glucose 107 H POC Glucose 125 H Calcium Magnesium CK-MB (CK-2) CK-MB (CK-2) Rel Index Albumin Urine WBC (Auto) Salicylates Acetaminophen 06/13/19 06/14/19 06/14/19 17:25 03:44 04:55 WBC MCH RDW Plt Count [place] % (Auto) Lymph # Seg Neutrophils % Seg Neuts % (Manual) Lymphocytes % (Manual) Seg Neutrophils # Man Lymphocytes # (Manual) ABG pH ABG pO2 58.9 L ABG HCO3 29.5 H ABG O2 Saturation 88.7 L ABG Base Excess ABG Hemoglobin 10.2 L Oxyhemoglobin 86.7 L Sodium 150 H Chloride 110.4 H Carbon Dioxide BUN 20 H Creatinine 0.4 L Glucose 105 H POC Glucose 128 H Calcium Magnesium CK-MB (CK-2) CK-MB (CK-2) Rel Index Albumin Urine WBC (Auto) Salicylates Acetaminophen 06/14/19 06/14/19 06/14/19 05:37 11:58 21:00 WBC MCH RDW Plt Count [place] % (Auto) Lymph # Seg Neutrophils % Seg Neuts % (Manual) Lymphocytes % (Manual) Seg Neutrophils # Man Lymphocytes # (Manual) ABG pH 7.321 L ABG pO2 60.0 L ABG HCO3 31.4 H ABG O2 Saturation 87.3 L ABG Base Excess 4.1 H ABG Hemoglobin 10.6 L Oxyhemoglobin 84.8 L Sodium Chloride Carbon Dioxide BUN Creatinine Glucose POC Glucose 111 H 116 H Calcium Magnesium CK-MB (CK-2) CK-MB (CK-2) Rel Index Albumin Urine WBC (Auto) Salicylates Acetaminophen 06/15/19 06/15/19 06/15/19 00:22 03:25 05:08 WBC MCH RDW Plt Count [place] % (Auto) Lymph # Seg Neutrophils % Seg Neuts % (Manual) Lymphocytes % (Manual) Seg Neutrophils # Man Lymphocytes # (Manual) ABG pH 7.317 L ABG pO2 ABG HCO3 31.5 H ABG O2 Saturation ABG Base Excess 4.1 H ABG Hemoglobin 10.4 L Oxyhemoglobin 94.1 L Sodium Chloride Carbon Dioxide 31 H BUN 23 H Creatinine 0.3 L Glucose 120 H POC Glucose 108 H Calcium Magnesium CK-MB (CK-2) CK-MB (CK-2) Rel Index Albumin Urine WBC (Auto) Salicylates Acetaminophen 06/15/19 06/15/19 06/15/19 05:24 11:41 17:38 WBC MCH RDW Plt Count [place] % (Auto) Lymph # Seg Neutrophils % Seg Neuts % (Manual) Lymphocytes % (Manual) Seg Neutrophils # Man Lymphocytes # (Manual) ABG pH ABG pO2 ABG HCO3 ABG O2 Saturation ABG Base Excess ABG Hemoglobin Oxyhemoglobin Sodium Chloride Carbon Dioxide BUN Creatinine Glucose POC Glucose 111 H 154 H 115 H Calcium Magnesium CK-MB (CK-2) CK-MB (CK-2) Rel Index Albumin Urine WBC (Auto) Salicylates Acetaminophen 06/15/19 06/16/19 06/16/19 23:31 03:40 05:18 WBC MCH RDW Plt Count [place] % (Auto) Lymph # Seg Neutrophils % Seg Neuts % (Manual) Lymphocytes % (Manual) Seg Neutrophils # Man Lymphocytes # (Manual) ABG pH 7.313 L ABG pO2 96.4 H ABG HCO3 35.2 H ABG O2 Saturation ABG Base Excess 7.2 H ABG Hemoglobin 10.5 L Oxyhemoglobin 94.9 L Sodium Chloride Carbon Dioxide BUN Creatinine Glucose POC Glucose 161 H 158 H Calcium Magnesium CK-MB (CK-2) CK-MB (CK-2) Rel Index Albumin Urine WBC (Auto) Salicylates Acetaminophen 06/16/19 06/16/19 06/16/19 05:45 05:45 12:06 WBC 12.1 H MCH 25 L RDW 18.7 H Plt Count 93 L [place] % (Auto) Lymph # Seg Neutrophils % Seg Neuts % (Manual) 97.0 H Lymphocytes % (Manual) 0 L Seg Neutrophils # Man 11.7 H Lymphocytes # (Manual) 0.0 L ABG pH ABG pO2 ABG HCO3 ABG O2 Saturation ABG Base Excess ABG Hemoglobin Oxyhemoglobin Sodium Chloride Carbon Dioxide 33 H BUN 25 H Creatinine 0.3 L Glucose 165 H POC Glucose 178 H Calcium Magnesium CK-MB (CK-2) CK-MB (CK-2) Rel Index Albumin Urine WBC (Auto) Salicylates Acetaminophen 06/16/19 06/16/19 06/17/19 17:55 23:42 03:35 WBC MCH RDW Plt Count [place] % (Auto) Lymph # Seg Neutrophils % Seg Neuts % (Manual) Lymphocytes % (Manual) Seg Neutrophils # Man Lymphocytes # (Manual) ABG pH ABG pO2 73.2 L ABG HCO3 35.2 H ABG O2 Saturation 94.5 L ABG Base Excess 8.8 H ABG Hemoglobin 10.7 L Oxyhemoglobin 92.6 L Sodium Chloride Carbon Dioxide BUN Creatinine Glucose POC Glucose 180 H 160 H Calcium Magnesium CK-MB (CK-2) CK-MB (CK-2) Rel Index Albumin Urine WBC (Auto) Salicylates Acetaminophen 06/17/19 04:57 WBC MCH RDW Plt Count [place] % (Auto) Lymph # Seg Neutrophils % Seg Neuts % (Manual) Lymphocytes % (Manual) Seg Neutrophils # Man Lymphocytes # (Manual) ABG pH ABG pO2 ABG HCO3 ABG O2 Saturation ABG Base Excess ABG Hemoglobin Oxyhemoglobin Sodium Chloride Carbon Dioxide 34 H BUN 31 H Creatinine 0.3 L Glucose 153 H POC Glucose Calcium Magnesium CK-MB (CK-2) CK-MB (CK-2) Rel Index Albumin Urine WBC (Auto) Salicylates Acetaminophen Allied health notes reviewed: nursing
[2019-06-17] MEDS: BUDESONIDE 0.5 MG/2 ML NEBU IH SCH ×2 (09:25→21:56)
[2019-06-17] MEDS: ARFORMOTEROL 15 MCG/2 ML NEBU IH SCH ×2 (09:25→21:57)
[2019-06-17] MEDS: IPRATROPIUM/ALBUTEROL SULFATE 3 ML AMPUL.NEB IH SCH ×3 (09:25→21:56)
--- NOTE | 2019-06-17 09:26 | Progress Note ---
Assessment and Plan Paroxysmal Atrial flutter/afib/MAT currently in sinus rhythm on amiodarone and digoxin for suppression not on anticoagulation secondary to history of melena and anemia. Respiratory failure s/p intubation COPD exacerbation on home oxygen History of [place]/Coronary artery disease EF 45-50% by echo 08/2018 [facility]: [employer] of the RCA recommend for medical therapy. She did undergo PCI of the mid LAD using bare metal stent. Recommend: Continue oral Cardizem, oral Amiodarone and intravenous digoxin as tolerated for paroxysmal atrial flutter. Subjective Date of service: 06/17/19 Principal diagnosis: Ac and ch hypoxic & hypercapnic resp failure; AE-COPD; Tobacco use disorder Interval history: Patient remains intubated on the ventilator. Sinus rhythm on telemetry, rate 68. Objective Vital Signs Temp Pulse Pulse Pulse Resp Resp BP 06/17/19 08:43 68 111/58 06/17/19 08:25 68 111/58 06/17/19 08:00 98.6 F 69 68 15 109/56 06/17/19 07:45 69 14 108/57 06/17/19 07:30 71 16 106/55 06/17/19 07:15 72 15 106/56 06/17/19 07:00 72 16 107/54 06/17/19 06:45 75 16 103/54 06/17/19 06:30 74 16 105/55 06/17/19 06:15 77 16 111/58 06/17/19 06:14 79 112/59 06/17/19 06:00 80 17 112/59 06/17/19 05:45 83 16 113/60 06/17/19 05:30 84 19 110/62 06/17/19 05:15 87 16 113/59 06/17/19 05:00 87 16 106/58 06/17/19 04:45 90 16 103/58 06/17/19 04:30 94 H 16 116/59 06/17/19 04:15 104 H 16 116/59 06/17/19 04:00 98.5 F 103 H 101 H 17 108/60 06/17/19 03:50 98.5 F 06/17/19 03:45 101 H 15 114/60 06/17/19 03:30 105 H 14 109/60 06/17/19 03:25 103 H 117/62 06/17/19 03:15 102 H 17 117/62 06/17/19 03:00 107 H 16 107/57 06/17/19 02:45 108 H 15 109/59 06/17/19 02:30 109 H 15 112/59 06/17/19 02:15 107 H 16 115/62 06/17/19 02:00 110 H 18 109/61 06/17/19 01:45 111 H 14 109/61 06/17/19 01:30 113 H 17 113/61 06/17/19 01:15 114 H 17 114/57 06/17/19 01:00 116 H 13 116/58 06/17/19 00:45 116 H 17 117/63 06/17/19 00:30 117 H 17 116/61 06/17/19 00:15 114 H 15 117/62 06/17/19 00:00 98.7 F 112 H 101 H 14 110/63 06/16/19 23:50 98.7 F 06/16/19 23:45 108 H 19 107/57 06/16/19 23:30 116 H 15 109/60 06/16/19 23:15 114 H 16 97/55 06/16/19 23:04 110 H 15 101/56 06/16/19 23:00 112 H 16 101/56 06/16/19 22:45 117 H 15 104/55 06/16/19 22:30 122 H 17 129/48 06/16/19 22:16 134 H 16 129/48 06/16/19 22:00 98 H 16 98/52 06/16/19 21:45 79 16 116/61 06/16/19 21:44 81 113/60 06/16/19 21:30 77 16 113/60 06/16/19 21:15 79 16 116/57 06/16/19 21:00 78 16 109/58 06/16/19 20:45 81 16 115/60 06/16/19 20:30 86 15 109/60 06/16/19 20:20 111 H 18 06/16/19 20:15 105 H 15 111/60 06/16/19 20:12 98.1 F 06/16/19 20:07 114 H 125/68 06/16/19 20:00 98.1 F 112 H 114 H 19 125/68 06/16/19 19:45 111 H 16 121/64 06/16/19 19:30 110 H 17 111/69 06/16/19 19:15 109 H 16 116/69 06/16/19 19:00 109 H 16 121/67 06/16/19 18:45 110 H 17 118/64 06/16/19 18:30 105 H 16 117/64 06/16/19 18:15 109 H 16 127/68 06/16/19 18:00 102 H 15 125/64 06/16/19 17:50 105 H 120/65 06/16/19 17:45 104 H 16 120/65 06/16/19 17:30 108 H 15 118/64 06/16/19 17:15 105 H 16 124/63 06/16/19 17:00 108 H 18 111/62 06/16/19 16:50 106 H 115/62 06/16/19 16:45 106 H 16 115/62 06/16/19 16:30 107 H 16 116/60 06/16/19 16:15 104 H 14 112/60 06/16/19 16:00 99.2 F 105 H 107 H 12 112/57 06/16/19 15:45 99 H 15 117/61 06/16/19 15:30 98 H 14 112/57 06/16/19 15:15 88 14 111/55 06/16/19 15:04 89 16 06/16/19 15:00 84 16 106/57 06/16/19 14:45 92 H 16 111/56 06/16/19 14:30 87 14 106/55 06/16/19 14:15 88 17 104/56 06/16/19 14:00 89 19 109/55 06/16/19 13:45 92 H 16 107/53 06/16/19 13:30 103 H 16 116/56 06/16/19 13:15 103 H 17 106/56 06/16/19 13:10 105 H 108/55 06/16/19 13:00 106 H 18 108/55 06/16/19 12:45 107 H 14 104/57 06/16/19 12:32 107 H 107/60 06/16/19 12:30 110 H 19 107/60 06/16/19 12:15 114 H 16 106/58 04/29/20 12:00 99 F 105 H 81 14 114/66 06/16/19 11:48 120 H 109/62 06/16/19 11:45 121 H 16 109/62 06/16/19 11:30 123 H 20 114/60 06/16/19 11:15 126 H 15 107/64 06/16/19 11:00 131 H 16 115/61 06/16/19 10:45 129 H 17 108/62 06/16/19 10:30 129 H 17 110/62 06/16/19 10:22 124 H 107/64 06/16/19 10:16 135 H 15 120/63 06/16/19 10:00 136 H 18 127/68 06/16/19 09:45 114 H 16 129/69 06/16/19 09:30 87 16 109/56 Pulse Ox 06/17/19 08:43 97 06/17/19 08:25 06/17/19 08:00 86 06/17/19 07:45 100 06/17/19 07:30 94 06/17/19 07:15 98 06/17/19 07:00 96 06/17/19 06:45 96 06/17/19 06:30 95 06/17/19 06:15 96 06/17/19 06:14 06/17/19 06:00 97 06/17/19 05:45 97 06/17/19 05:30 98 06/17/19 05:15 98 06/17/19 05:00 98 06/17/19 04:45 98 06/17/19 04:30 98 06/17/19 04:15 97 06/17/19 04:00 95 06/17/19 03:50 06/17/19 03:45 97 06/17/19 03:30 96 06/17/19 03:25 96 06/17/19 03:15 96 06/17/19 03:00 96 06/17/19 02:45 96 06/17/19 02:30 96 06/17/19 02:15 96 06/17/19 02:00 96 06/17/19 01:45 96 06/17/19 01:30 96 06/17/19 01:15 97 06/17/19 01:00 96 06/17/19 00:45 96 06/17/19 00:30 96 06/17/19 00:15 96 06/17/19 00:00 95 06/16/19 23:50 06/16/19 23:45 90 06/16/19 23:30 89 06/16/19 23:15 89 06/16/19 23:04 89 06/16/19 23:00 89 06/16/19 22:45 88 06/16/19 22:30 88 06/16/19 22:16 88 06/16/19 22:00 93 06/16/19 21:45 93 06/16/19 21:44 06/16/19 21:30 92 06/16/19 21:15 92 06/16/19 21:00 93 06/16/19 20:45 94 06/16/19 20:30 93 06/16/19 20:20 06/16/19 20:15 94 06/16/19 20:12 06/16/19 20:07 95 06/16/19 20:00 97 06/16/19 19:45 98 06/16/19 19:30 98 06/16/19 19:15 98 06/16/19 19:00 98 06/16/19 18:45 98 06/16/19 18:30 97 06/16/19 18:15 97 06/16/19 18:00 95 06/16/19 17:50 06/16/19 17:45 95 06/16/19 17:30 95 06/16/19 17:15 95 06/16/19 17:00 95 06/16/19 16:50 95 06/16/19 16:45 95 06/16/19 16:30 95 06/16/19 16:15 95 06/16/19 16:00 95 06/16/19 15:45 95 06/16/19 15:30 95 06/16/19 15:15 95 06/16/19 15:04 06/16/19 15:00 93 06/16/19 14:45 93 06/16/19 14:30 95 06/16/19 14:15 95 06/16/19 14:00 95 06/16/19 13:45 95 06/16/19 13:30 95 06/16/19 13:15 95 06/16/19 13:10 06/16/19 13:00 95 06/16/19 12:45 95 06/16/19 12:32 95 06/16/19 12:30 95 06/16/19 12:15 95 06/16/19 12:00 95 06/16/19 11:48 06/16/19 11:45 95 06/16/19 11:30 95 06/16/19 11:15 94 06/16/19 11:00 94 06/16/19 10:45 93 06/16/19 10:30 93 06/16/19 10:22 06/16/19 10:16 94 06/16/19 10:00 93 06/16/19 09:45 95 06/16/19 09:30 94 - Physical Examination General: Other (intubated on the vent) HEENT: Positive: Other (intubated) Cardiac: Positive: Reg Rate and Rhythm Abdomen: Positive: Soft. Negative: Pulsations/Bruits Extremities: Absent: edema - Labs and Meds Comprehensive Metabolic Panel 06/17/19 Range/Units 04:57 Sodium 141 (137-145) mmol/L Potassium 4.3 (3.6-5.0) mmol/L Chloride 102.1 (98-107) mmol/L Carbon Dioxide 34 H (22-30) mmol/L BUN 31 H (7-17) mg/dL Creatinine 0.3 L (0.7-1.2) mg/dL Glucose 153 H (65-100) mg/dL Calcium 9.0 (8.4-10.2) mg/dL - Imaging and Cardiology EKG: image reviewed - Allied health notes Allied health notes reviewed: nursing
[2019-06-17] MEDS ORDERED: FUROSEMIDE 20 MG/2 ML INJ IV SCH (10:00)
--- NOTE | 2019-06-17 10:06 | Progress Note ---
Assessment and Plan Assessment and plan: 06/17/2019; patient had mild hypotension, improved with holding Blood pressure and diuretic meds, closely monitor Intubated on vent, wean as tolerated and extubate Sputum cultures positive for Pseudomonas, continue cefepime --Acute hypoxic and hypercapnic respiratory failure: Requiring intubation and ventilatory support Nebulizers, IV steroids, IV antibiotics inhalation steroids Pulmonary critical following, supportive care Wean as tolerated and extubate --Acute exacerbation of COPD : Nebulizers, tapering doses steroids --Left lung basilar density; pneumonia Continue empiric antibiotics follow cultures Sputum cultures positive for Pseudomonas Continue cefepime --Paroxysmal A. 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 The aggregate critical care time was [33] minutes. This time is in addition to time spent performing reported procedures but includes the following: [x] Data Review and interpretation [x] Patient assessment and monitoring of vital signs [x] Documentation [x] Medication orders and management Critical care time 33 minutes Monitor closely and adjust management as needed Brief history: 59-year-old female patient with significant history of hypertension GERD depression COPD coronary artery disease CHF was admitted through emergency room with acute hypoxic hypercapnic respiratory failure requiring intubation and ventilatory support Admitted to ICU evaluated by pulmonary critical, cardiology for A. fib flutter with rapid ventricular rate, started on Cardizem and amiodarone Not a candidate for anticoagulation due to history of severe GI bleeding. Disposition; wean as tolerated and extubate DC when medically stable History Interval history: Patient seen and examined at the bedside in her room in ICU this morning Patient's chart, medications, labs, consultants recommendations reviewed Patient remains intubated on ventilatory support Sedated, not in acute distress Vital signs reviewed Hospitalist Physical - Constitutional Vitals: Temp Pulse Resp BP Pulse Ox 98.6 F 85 16 78/40 88 06/17/19 08:00 06/17/19 10:00 06/17/19 10:00 06/17/19 10:00 06/17/19 10:00 General appearance: Present: no acute distress, well-nourished, obese, other (Intubated on ventilatory support sedated) - EENT Eyes: Present: PERRL. Absent: scleral icterus - Neck Neck: Present: supple, normal ROM - Respiratory Respiratory effort: normal Respiratory: bilateral: diminished, rhonchi, negative: rales, wheezing - Cardiovascular Rhythm: irregularly irregular Heart Sounds: Present: S1 & S2 - Extremities Extremities: no ischemia Extremity abnormal: edema - Abdominal General gastrointestinal: soft, non-tender, non-distended, normal bowel sounds - Integumentary Integumentary: Present: clear, warm - Psychiatric Psychiatric: other (Intubated on vent) - Neurologic Neurologic: other (Intubated on vent) Results - Labs CBC & Chem 7: 06/17/19 09:45 06/17/19 04:57 Labs: Laboratory Last Values WBC 12.1 K/mm3 (4.5-11.0) H 06/16/19 05:45 RBC 4.36 M/mm3 (3.65-5.03) 06/16/19 05:45 Hgb 10.7 gm/dl (10.1-14.3) 06/16/19 05:45 Hct 35.5 % (30.3-42.9) 06/16/19 05:45 MCV 82 fl (79-97) 06/16/19 05:45 MCH 25 pg (28-32) L 06/16/19 05:45 MCHC 30 % (30-34) 06/16/19 05:45 RDW 18.7 % (13.2-15.2) H 06/16/19 05:45 Plt Count 93 K/mm3 (140-440) L 06/16/19 05:45 Lymph % (Auto) 13.7 % (13.4-35.0) 06/11/19 18:03 [place] % (Auto) 10.3 % (0.0-7.3) H 06/11/19 18:03 Eos % (Auto) 0.8 % (0.0-4.3) 06/11/19 18:03 Baso % (Auto) 0.8 % (0.0-1.8) 06/11/19 18:03 Lymph # 1.1 K/mm3 (1.2-5.4) L 06/11/19 18:03 [place] # 0.8 K/mm3 (0.0-0.8) 06/11/19 18:03 Eos # 0.1 K/mm3 (0.0-0.4) 06/11/19 18:03 Baso # 0.1 K/mm3 (0.0-0.1) 06/11/19 18:03 Add Manual Diff Complete 06/16/19 05:45 Total Counted 100 06/16/19 05:45 Seg Neutrophils % [place] 06/16/19 05:45 Seg Neuts % (Manual) 97.0 % (40.0-70.0) H 06/16/19 05:45 Band Neutrophils % 0 % 06/16/19 05:45 Lymphocytes % (Manual) 0 % (13.4-35.0) L 06/16/19 05:45 Reactive Lymphs % (Man) 0 % 06/16/19 05:45 Monocytes % (Manual) 3.0 % (0.0-7.3) 06/16/19 05:45 Eosinophils % (Manual) 0 % (0.0-4.3) 06/16/19 05:45 Basophils % (Manual) 0 % (0.0-1.8) 06/16/19 05:45 Metamyelocytes % 0 % 06/16/19 05:45 Myelocytes % 0 % 06/16/19 05:45 Promyelocytes % 0 % 06/16/19 05:45 Blast Cells % 0 % 06/16/19 05:45 Nucleated RBC % Not Reportable 06/16/19 05:45 Seg Neutrophils # 6.0 K/mm3 (1.8-7.7) 06/11/19 18:03 Seg Neutrophils # Man 11.7 K/mm3 (1.8-7.7) H 06/16/19 05:45 Band Neutrophils # 0.0 K/mm3 06/16/19 05:45 Lymphocytes # (Manual) 0.0 K/mm3 (1.2-5.4) L 06/16/19 05:45 Abs React Lymphs (Man) 0.0 K/mm3 06/16/19 05:45 Monocytes # (Manual) 0.4 K/mm3 (0.0-0.8) 06/16/19 05:45 Eosinophils # (Manual) 0.0 K/mm3 (0.0-0.4) 06/16/19 05:45 Basophils # (Manual) 0.0 K/mm3 (0.0-0.1) 06/16/19 05:45 Metamyelocytes # 0.0 K/mm3 06/16/19 05:45 Myelocytes # 0.0 K/mm3 06/16/19 05:45 Promyelocytes # 0.0 K/mm3 06/16/19 05:45 Blast Cells # 0.0 K/mm3 06/16/19 05:45 WBC Morphology Not Reportable 06/16/19 05:45 Hypersegmented Neuts Not Reportable 06/16/19 05:45 Hyposegmented Neuts Not Reportable 06/16/19 05:45 Hypogranular Neuts Not Reportable 06/16/19 05:45 Smudge Cells Not Reportable 06/16/19 05:45 Toxic Granulation Not Reportable 06/16/19 05:45 Toxic Vacuolation Not Reportable 06/16/19 05:45 Dohle Bodies Not Reportable 06/16/19 05:45 Pelger-Huet Anomaly Not Reportable 06/16/19 05:45 Neha Rods Not Reportable 06/16/19 05:45 Platelet Estimate Consistent w auto 06/16/19 05:45 Clumped Platelets Not Reportable 06/16/19 05:45 Plt Clumps, EDTA Not Reportable 06/16/19 05:45 Large Platelets Not Reportable 06/16/19 05:45 Giant Platelets Not Reportable 06/16/19 05:45 Platelet Satelliting Not Reportable 06/16/19 05:45 Plt Morphology Comment Not Reportable 06/16/19 05:45 RBC Morphology Not Reportable 06/16/19 05:45 Dimorphic RBCs Not Reportable 06/16/19 05:45 Polychromasia Not Reportable 06/16/19 05:45 Hypochromasia 1+ 06/16/19 05:45 Poikilocytosis Not Reportable 06/16/19 05:45 Anisocytosis Few 06/16/19 05:45 Microcytosis Not Reportable 06/16/19 05:45 Macrocytosis Not Reportable 06/16/19 05:45 Spherocytes Not Reportable 06/16/19 05:45 Pappenheimer Bodies Not Reportable 06/16/19 05:45 Sickle Cells Not Reportable 06/16/19 05:45 Target Cells Not Reportable 06/16/19 05:45 Tear Drop Cells Not Reportable 06/16/19 05:45 Ovalocytes Rare 06/16/19 05:45 Helmet Cells Not Reportable 06/16/19 05:45 [place] Bodies Not Reportable 06/16/19 05:45 [place] Rings Not Reportable 06/16/19 05:45 [place] Cells Not Reportable 06/16/19 05:45 Bite Cells Not Reportable 06/16/19 05:45 Crenated Cell Not Reportable 06/16/19 05:45 Elliptocytes Not Reportable 06/16/19 05:45 Acanthocytes (Spur) Not Reportable 06/16/19 05:45 Rouleaux Not Reportable 06/16/19 05:45 Hemoglobin C Crystals Not Reportable 06/16/19 05:45 Schistocytes Not Reportable 06/16/19 05:45 Malaria parasites Not Reportable 06/16/19 05:45 Hernan Bodies Not Reportable 06/16/19 05:45 Hem Pathologist Commnt No 06/16/19 05:45 PT 13.0 Sec. (12.2-14.9) 06/11/19 18:03 INR 0.97 (0.87-1.13) 06/11/19 18:03 ABG pH 7.397 pH Units (7.350-7.450) 06/17/19 03:35 ABG pCO2 58.6 mm Hg 06/17/19 03:35 ABG pO2 73.2 mm Hg (80.0-90.0) L 06/17/19 03:35 ABG HCO3 35.2 mmol/L (20.0-26.0) H 06/17/19 03:35 ABG O2 Saturation 94.5 % (95.0-99.0) L 06/17/19 03:35 ABG O2 Content 14.0 (0.0-44) 06/17/19 03:35 ABG Base Excess 8.8 mmol/L (-2.0-3.0) H 06/17/19 03:35 ABG Hemoglobin 10.7 gm/dl (12.0-16.0) L 06/17/19 03:35 ABG Carboxyhemoglobin 1.5 % (0.0-5.0) 06/17/19 03:35 ABG Methemoglobin 0.4 % (0.0-1.5) 06/17/19 03:35 Oxyhemoglobin 92.6 % (95.0-99.0) L 06/17/19 03:35 FiO2 50 % 06/17/19 03:35 Sodium 141 mmol/L (137-145) 06/17/19 04:57 Potassium 4.3 mmol/L (3.6-5.0) 06/17/19 04:57 Chloride 102.1 mmol/L (98-107) 06/17/19 04:57 Carbon Dioxide 34 mmol/L (22-30) H 06/17/19 04:57 Anion Gap 9 mmol/L 06/17/19 04:57 BUN 31 mg/dL (7-17) H 06/17/19 04:57 Creatinine 0.3 mg/dL (0.7-1.2) L 06/17/19 04:57 Estimated GFR > 60 ml/min 06/17/19 04:57 BUN/Creatinine Ratio 103 % 06/17/19 04:57 Glucose 153 mg/dL (65-100) H 06/17/19 04:57 POC Glucose 160 (70-105) H 06/16/19 23:42 Calcium 9.0 mg/dL (8.4-10.2) 06/17/19 04:57 Phosphorus 4.50 mg/dL (2.5-4.5) 06/15/19 05:08 Magnesium 2.20 mg/dL (1.7-2.3) 06/15/19 05:08 Total Bilirubin 0.30 mg/dL (0.1-1.2) 06/11/19 18:03 AST 14 units/L (5-40) 06/11/19 18:03 ALT 8 units/L (7-56) 06/11/19 18:03 Alkaline Phosphatase 85 units/L (35-129) 06/11/19 18:03 Total Creatine Kinase 74 units/L (30-135) 06/12/19 05:09 CK-MB (CK-2) 4.0 ng/mL (0.0-4.0) 06/12/19 05:09 CK-MB (CK-2) Rel Index 5.4 (0-4) H 06/12/19 05:09 Troponin T < 0.010 ng/mL (0.00-0.029) 06/12/19 05:09 Total Protein 6.4 g/dL (6.3-8.2) 06/11/19 18:03 Albumin 3.5 g/dL (3.9-5) L 06/11/19 18:03 Albumin/Globulin Ratio 1.2 % 06/11/19 18:03 Urine Color Yellow (Yellow) 06/12/19 02:04 Urine Turbidity Clear (Clear) 06/12/19 02:04 Urine pH 5.0 (5.0-7.0) 06/12/19 02:04 Ur Specific [place] 1.027 (1.003-1.030) 06/12/19 02:04 Urine Protein 30 mg/dl mg/dL (Negative) 06/12/19 02:04 Urine Glucose (UA) Neg mg/dL (Negative) 06/12/19 02:04 Urine Ketones 80 mg/dL (Negative) 06/12/19 02:04 Urine Blood Lg (Negative) 06/12/19 02:04 Urine Nitrite Neg (Negative) 06/12/19 02:04 Urine Bilirubin Neg (Negative) 06/12/19 02:04 Urine Urobilinogen 2.0 mg/dL (<2.0) 06/12/19 02:04 Ur Leukocyte Esterase Neg (Negative) 06/12/19 02:04 Urine WBC (Auto) 30.0 /HPF (0.0-6.0) H 06/12/19 02:04 Urine RBC (Auto) > 182.0 /HPF (0.0-6.0) 06/12/19 02:04 Urine Bacteria (Auto) 1+ /HPF (Negative) 06/12/19 02:04 Urine Mucus 3+ /HPF 06/12/19 02:04 Urine Yeast (Budding) Few /HPF 06/12/19 02:04 Salicylates 1.0 mg/dL (2.8-20.0) L 06/11/19 18:03 Acetaminophen < 5.0 ug/mL (10.0-30.0) L 06/11/19 18:03 Microbiology: Microbiology 06/11/19 19:16 Peripheral/Venous Blood Culture - Final NO GROWTH AFTER 5 DAYS 06/11/19 19:19 Peripheral/Venous Blood Culture - Final NO GROWTH AFTER 5 DAYS [place]/IV: Voiding Method Indwelling Catheter IV Catheter Type [Left Peripheral IV Antecubital] IV Catheter Type [Right Wrist] Peripheral IV IV Catheter Type [Right Hand] Peripheral IV Active Medications - Current Medications Current Medications: Generic Name Dose Route Start Last Admin Trade Name Freq PRN Reason Stop Dose Admin Acetaminophen 650 mg 06/11/19 22:48 Tylenol PO Q4H PRN Pain MILD(1-3)/Fever >100.5/PRAJAPATI Albuterol 2.5 mg 06/14/19 08:20 Proventil IH Q4HRT PRN Shortness Of Breath Albuterol/Ipratropium 1 ampul 06/14/19 14:00 06/17/19 09:25 Duoneb *Not For Prn Use* IH 1 ampul TIDRT DOMINICK Administration Alprazolam 0.25 mg 06/13/19 10:23 06/13/19 23:32 Xanax PO 0.25 mg Q8H PRN Administration Anxiety Amiodarone HCl 200 mg 06/17/19 10:00 06/17/19 08:26 Cordarone PO 200 mg QDAY DOMINICK Administration Lipase/Protease/Amylase 1 each 06/13/19 17:52 Pancrejohanne Pereira 10,500 Unit FEEDTUBE PRN PRN For Clogged Feeding Tube Arformoterol Tartrate 15 mcg 06/14/19 20:00 06/17/19 09:25 Brovana Nebu IH 15 mcg Q12HRT DOMINICK Administration Budesonide 0.5 mg 06/14/19 20:00 06/17/19 09:25 Pulmicort IH 0.5 mg Q12HRT DOMINICK Administration Dextrose 50 ml 06/11/19 22:48 D50w (25gm) Syringe IV Q30MIN PRN Hypoglycemia Protocol Digoxin 0.125 mg 06/16/19 17:00 06/16/19 17:50 Lanoxin IV 0.125 mg QDAY@1700 DOMINICK Administration Diltiazem HCl 30 mg 06/16/19 11:30 06/17/19 06:14 Cardizem PO 30 mg Q8HR DOMINICK Administration Enoxaparin Sodium 40 mg 06/14/19 22:00 06/16/19 21:44 Enoxaparin SUB-Q 40 mg QDAY@2200 DOMINICK Administration Fentanyl 50 mcg 06/11/19 17:45 06/11/19 20:52 Sublimaze IV 50 mcg Q10MIN PRN Administration ANALGESIA Furosemide 20 mg 06/17/19 10:00 06/17/19 09:50 Lasix IV 06/19/19 09:59 Not Given BID [facility] Hydrophilic Ointment 1 applic 06/11/19 17:44 Vaseline Lip Therapy TP Q2HR PRN Dry Lips Fentanyl Citrate 2,000 mcg in 100 mls @ 3.742 mls/hr 06/11/19 18:00 06/17/19 09:46 Fentanyl Drip Premix IV 0 mcg/kg/hr TITR DOMINICK 0 mls/hr Titration Protocol 1 MCG/KG/HR Lorazepam 100 mg/ Sodium 100 mls @ 1 mls/hr 06/11/19 18:00 06/14/19 22:15 Chloride/ Miscellaneous IV 0 mg/hr Information TITR DOMINICK 0 mls/hr Titration Protocol 1 MG/HR Cefepime HCl 1 gm in 100 mls @ 200 mls/hr 06/14/19 14:00 06/17/19 06:15 Cefepime/Ns 1 Gm/100 Ml IV 06/19/19 13:59 200 mls/hr Q8HR [facility] Administration Protocol Insulin Human Lispro 0 unit 06/12/19 00:00 06/17/19 06:14 Humalog SUB-Q 2 unit Q6HR [facility] Administration Protocol Lansoprazole 30 mg 06/13/19 11:00 06/17/19 08:24 Prevacid Solutab FEEDTUBE 30 mg QDAY [facility] Administration Methylprednisolone Sodium Succinate 60 mg 06/17/19 10:03 Solu-Medrol IV Q6HR [facility] Multi-Ingred Cream/Lotion/Oil/Oint 1 applic 06/11/19 17:44 Artificial Tears Ophth Oint OU Q4HR PRN Dry Eye(s) Ondansetron HCl 4 mg 06/11/19 22:48 Zofran IV Q8H PRN Nausea And Vomiting Quetiapine Fumarate 300 mg 06/13/19 11:00 06/17/19 08:26 Seroquel PO 300 mg BID DOMINICK Administration Simple Syrup 15 ml 06/13/19 17:52 Simple Syrup FEEDTUBE PRN PRN Hypoglycemia Simple Syrup 30 ml 06/13/19 17:52 Simple Syrup FEEDTUBE PRN PRN Hypoglycemia Sodium Bicarbonate 325 mg 06/13/19 17:52 Sodium Bicarbonate FEEDTUBE PRN PRN For Clogged Feeding Tube Sodium Chloride 10 ml 06/12/19 10:00 06/17/19 08:24 Sodium Chloride Flush Syringe 10 Ml IV 10 ml BID DOMINICK Administration Sodium Chloride 10 ml 06/11/19 22:48 06/13/19 22:00 Sodium Chloride Flush Syringe 10 Ml IV 10 ml PRN PRN Administration LINE FLUSH Venlafaxine HCl 75 mg 06/13/19 14:00 06/17/19 08:25 Effexor PO 75 mg TID DOMINICK Administration Nutrition/Malnutrition Assess - Dietary Evaluation Nutrition/Malnutrition Findings: Nutrition Notes Start: 06/12/19 11:05 Freq: Status: Active Protocol: Document 06/16/19 13:28 LM (Rec: 06/16/19 13:45 LM [email or web address]) Nutrition Notes Initial or Follow up Reassessment Current Diagnosis COPD,Coronary Artery Disease, Hypertension,Heart Failure, Respiratory Failure Other Pertinent Diagnosis COPD exacerbation Current Diet Promote 1.0 at 60ml/hr Labs/Tests BG 165 Na 144 Pertinent Medications Humalog Solumedrol Height 5 ft Weight 74.843 kg [place] Body Weight (kg) 45.45 BMI 32.2 Weight Status Obese Subjective/Other Information Promote running at goal. Na in normal range. Percent of energy/protein needs met: 97%/99% Burn Absent Trauma Absent Current % PO Negligible Minimum of two criteria No #1 Nutrition Diagnosis Inadequate oral intake Diagnosis Progress(for reassessment Continues documentation) Is patient on ventilator? Yes Is Patient Ambulatory and/or Out of Bed No REE-([place]-St. Jeor-confined to bed) 1486.872 Calculation Used for Recommendations [place] Jeor Additional Notes Pro needs 2g/kg IBW: 91g/day 1ml/kcal Nutrition Intervention Change Diet Order: Continue TF Nutrition Support: Promote 1.0 at 60ml/hr Flush 150 q4h for hypernatremia Flush 50ml q4h once resolved Kcal 1,440 Protein (gm) 90 Fluid (mL) 1,208 Goal #1 TF tolerance Goal #2 Meet at least 75% of energy and protein needs Anticipated Discharge Needs: Unable to identify at this time Follow-Up By: 06/21/19 Additional Comments F/U for TF tolerance
[2019-06-17 10:08] LABS: Hematocrit 35.7 % (30.3-42.9); Mean Corpuscular HGB Conc 31 % (30-34); Mean Corpuscular Volume 80 fl (79-97); Red Blood Count 4.46 M/mm3 (3.65-5.03); Red Cell Distribution Width 18.2 % (13.2-15.2)
[2019-06-17 10:10] LABS: Platelet Count 79 K/mm3 (140-440)
[2019-06-17 10:42] LABS: Basophils % (Manual) 0 % (0.0-1.8); Eosinophils % (Manual) 0 % (0.0-4.3); Total Cells Counted 100
[2019-06-17 10:43] LABS: Anisocytosis Few; Hypochromasia 1+; Platelet Estimate Consistent w Auto
[2019-06-17] MEDS ORDERED: SODIUM CHLORIDE 0.9% 250ML 250 ML IV ONE (11:30)
[2019-06-17] MEDS: DIGOXIN 0.5 MG/2 ML INJ IV SCH (17:53)
[2019-06-18] MEDS: SODIUM CHLORIDE 0.9% 500 ML 500 ML ONE ×2 (01:36→04:07)
--- NOTE | 2019-06-18 03:17 | XRay Report ---
CHEST 1 VIEW 0158 INDICATION / CLINICAL INFORMATION: follow up respiratory failure. COMPARISON: 06/17/2019 FINDINGS: SUPPORT DEVICES: Endotracheal tube is not clearly seen on this image. Nasogastric tube continues belo w the diaphragm. HEART / MEDIASTINUM: Stable LUNGS / PLEURA: Congestive changes have improved. Density in the left base continues. There probably is a small left pleural effusion. Minimal atelectasis is seen on the right base. No pneumothorax. ADDITIONAL FINDINGS: No significant additional findings. IMPRESSION: Mild improvement Signer Name: Alex Shay MD Signed: 06/18/2019 3:13 AM Workstation Name: [id number]
[2019-06-18] MEDS ORDERED: SODIUM CHLORIDE 0.9% 500 ML 500 ML IV SCH (04:00)
[2019-06-18 04:49] LABS: ABG Base Excess 7.3 mmol/L (-2.0-3.0); ABG HCO3 33.8 mmol/L (20.0-26.0); ABG Methemoglobin 0.4 % (0.0-1.5); ABG Oxygen Saturation 94.6 % (95.0-99.0); ABG PCO2 57.4 mm Hg; ABG PH 7.388 pH Units (7.350-7.450); ABG PO2 72.9 mm Hg (80.0-90.0)
[2019-06-18] MEDS: methylPREDNISolone Sod Succinate 125 MG/2 ML INJ IV SCH ×3 (05:20→18:38)
[2019-06-18] MEDS: dilTIAZem 30 MG TAB PO SCH ×3 (05:20→21:00)
[2019-06-18] MEDS: CEFEPIME/NS 1 GM/100 ML 1 GM/100 ML BAG IV SCH ×3 (05:21→21:01)
[2019-06-18] MEDS: INSULIN LISPRO 100 UNIT/ML SUB-Q SCH ×5 (05:27→18:00)
[2019-06-18 06:24] LABS: Mean Corpuscular HGB Conc 30 % (30-34); Mean Corpuscular Volume 82 fl (79-97); Red Blood Count 4.55 M/mm3 (3.65-5.03); Red Cell Distribution Width 18.3 % (13.2-15.2)
[2019-06-18 06:30] LABS: Hematocrit 37.1 % (30.3-42.9); Hemoglobin 11.2 gm/dl (10.1-14.3); Platelet Count 81 K/mm3 (140-440)
[2019-06-18 06:56] LABS: BUN/Creatinine Ratio 120; Blood Urea Nitrogen 36 mg/dL (7-17); Hemolysis Index 20
[2019-06-18 07:13] LABS: Basophils % (Manual) 0 % (0.0-1.8); Eosinophils % (Manual) 0 % (0.0-4.3); Hypochromasia Few; Monocytes % (Manual) 0 % (0.0-7.3); Total Cells Counted 100
[2019-06-18 07:14] LABS: Anisocytosis Few; Platelet Estimate Consistent w Auto; Schistocytes Few
[2019-06-18] MEDS: VENLAFAXINE 75 MG TAB PO SCH ×3 (08:30→21:01)
[2019-06-18] MEDS: ARFORMOTEROL 15 MCG/2 ML NEBU IH SCH ×2 (08:50→21:54)
[2019-06-18] MEDS: IPRATROPIUM/ALBUTEROL SULFATE 3 ML AMPUL.NEB IH SCH ×3 (08:50→21:54)
[2019-06-18] MEDS: BUDESONIDE 0.5 MG/2 ML NEBU IH SCH ×2 (08:50→21:54)
--- NOTE | 2019-06-18 10:05 | Progress Note ---
Assessment and Plan Paroxysmal Atrial flutter/afib/MAT currently in sinus rhythm on amiodarone, diltiazem and digoxin for suppression not on anticoagulation secondary to history of melena and anemia. 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 She did undergo PCI of the mid LAD using bare metal stent. Recommend: Continue oral Cardizem, oral Amiodarone and intravenous digoxin as tolerated for paroxysmal atrial flutter. Subjective Date of service: 06/18/19 Principal diagnosis: Ac and ch hypoxic & hypercapnic resp failure; AE-COPD; Tobacco use disorder Interval history: Patient remains intubated on the ventilator. Stable sinus rhythm on telemetry. Objective Vital Signs Temp Pulse Pulse Pulse Pulse Pulse Resp 06/18/19 09:56 06/18/19 08:40 90 06/18/19 08:00 90 17 06/18/19 07:46 89 19 06/18/19 07:30 89 13 06/18/19 07:16 87 16 06/18/19 07:00 87 16 06/18/19 06:46 89 16 06/18/19 06:30 89 19 06/18/19 06:16 89 14 06/18/19 06:00 89 06/18/19 05:46 95 H 18 06/18/19 05:30 106 H 06/18/19 05:20 104 H 06/18/19 05:16 104 H 06/18/19 05:00 101 H 17 06/18/19 04:50 107 H 06/18/19 04:46 98 H 06/18/19 04:30 103 H 13 06/18/19 04:16 102 H 13 06/18/19 04:00 98.3 F 102 H 06/18/19 03:53 102 H 102 H 06/18/19 03:46 97 H 06/18/19 03:30 100 H 06/18/19 03:16 102 H 06/18/19 03:00 100 H 16 06/18/19 02:46 99 H 06/18/19 02:30 102 H 18 06/18/19 02:16 102 H 06/18/19 02:00 106 H 16 06/18/19 01:46 102 H 17 06/18/19 01:30 105 H 20 06/18/19 01:16 104 H 16 06/18/19 01:00 104 H 13 06/18/19 00:46 108 H 14 06/18/19 00:30 108 H 16 06/18/19 00:22 109 H 06/18/19 00:16 110 H 14 06/18/19 00:00 98.5 F 109 H 103 H 103 H 15 06/17/19 23:45 108 H 15 06/17/19 23:30 113 H 12 06/17/19 23:15 115 H 14 06/17/19 23:00 116 H 16 06/17/19 22:45 116 H 15 06/17/19 22:30 118 H 17 06/17/19 22:22 120 H 15 06/17/19 22:15 123 H 15 06/17/19 22:00 122 H 16 06/17/19 21:59 121 H 06/17/19 21:51 125 H 06/17/19 21:46 118 H 15 06/17/19 21:30 98 H 16 06/17/19 21:15 100 H 12 06/17/19 21:03 99 H 06/17/19 21:00 97 H 06/17/19 20:45 99 H 18 06/17/19 20:30 98 H 06/17/19 20:15 97 H 15 06/17/19 20:00 98.2 F 99 H 19 06/17/19 19:45 102 H 16 06/17/19 19:30 105 H 16 06/17/19 19:26 105 H 105 H 06/17/19 19:15 103 H 06/17/19 19:00 105 H 19 06/17/19 18:45 104 H 18 06/17/19 18:30 107 H 10 L 06/17/19 18:15 85 06/17/19 18:00 92 H 16 06/17/19 17:53 90 06/17/19 17:45 89 16 06/17/19 17:30 85 16 06/17/19 17:15 88 16 06/17/19 17:00 86 16 06/17/19 16:45 92 H 16 06/17/19 16:30 91 H 15 06/17/19 16:15 98 H 16 06/17/19 16:10 102 H 06/17/19 16:00 98.5 F 99 H 89 16 06/17/19 15:45 100 H 16 06/17/19 15:30 102 H 16 06/17/19 15:15 101 H 16 06/17/19 15:00 100 H 16 06/17/19 14:45 107 H 16 06/17/19 14:30 107 H 15 06/17/19 14:15 106 H 16 06/17/19 14:00 102 H 16 06/17/19 13:45 104 H 16 06/17/19 13:30 102 H 16 06/17/19 13:15 98 H 16 06/17/19 13:06 112 H 06/17/19 13:00 101 H 16 06/17/19 12:45 101 H 16 06/17/19 12:30 103 H 16 06/17/19 12:15 106 H 16 06/17/19 12:03 97 H 06/17/19 12:00 98.3 F 105 H 105 H 16 06/17/19 11:45 106 H 17 06/17/19 11:30 103 H 15 06/17/19 11:15 100 H 15 06/17/19 11:00 97 H 16 06/17/19 10:45 82 16 06/17/19 10:30 80 16 06/17/19 10:15 83 15 Resp BP Pulse Ox 06/18/19 09:56 98 06/18/19 08:40 109/54 98 06/18/19 08:00 109/54 98 06/18/19 07:46 107/57 98 06/18/19 07:30 107/57 98 06/18/19 07:16 107/57 98 06/18/19 07:00 107/57 98 06/18/19 06:46 100/54 97 06/18/19 06:30 100/54 97 06/18/19 06:16 100/54 97 06/18/19 06:00 100/54 97 06/18/19 05:46 102/55 97 06/18/19 05:30 102/55 96 06/18/19 05:20 06/18/19 05:16 102/55 96 06/18/19 05:00 102/55 97 06/18/19 04:50 102/55 96 06/18/19 04:46 107/55 96 06/18/19 04:30 107/55 97 06/18/19 04:16 107/55 97 06/18/19 04:00 107/55 97 06/18/19 03:53 06/18/19 03:46 102/54 97 06/18/19 03:30 102/54 87 06/18/19 03:16 102/54 95 06/18/19 03:00 102/54 91 06/18/19 02:46 102/60 90 06/18/19 02:30 102/60 97 06/18/19 02:16 102/60 94 06/18/19 02:00 102/60 93 06/18/19 01:46 92/49 97 06/18/19 01:30 92/49 96 06/18/19 01:16 92/49 98 06/18/19 01:00 92/49 97 06/18/19 00:46 101/52 97 06/18/19 00:30 101/52 97 06/18/19 00:22 101/52 97 06/18/19 00:16 101/52 97 06/18/19 00:00 101/54 97 06/17/19 23:45 95/53 96 06/17/19 23:30 88/47 95 06/17/19 23:15 93/57 94 06/17/19 23:00 91/43 94 06/17/19 22:45 88/44 94 06/17/19 22:30 94/52 94 06/17/19 22:22 82/45 94 06/17/19 22:15 82/45 93 06/17/19 22:00 135/68 91 06/17/19 21:59 18 06/17/19 21:51 135/68 94 06/17/19 21:46 135/68 94 06/17/19 21:30 106/57 92 06/17/19 21:15 106/61 92 06/17/19 21:03 06/17/19 21:00 104/58 92 06/17/19 20:45 108/55 92 06/17/19 20:30 109/56 92 06/17/19 20:15 107/57 92 06/17/19 20:00 107/54 92 06/17/19 19:45 112/61 92 06/17/19 19:30 117/59 92 06/17/19 19:26 06/17/19 19:15 111/59 93 06/17/19 19:00 119/63 92 06/17/19 18:45 114/56 92 06/17/19 18:30 112/57 06/17/19 18:15 112/57 93 06/17/19 18:00 111/63 94 06/17/19 17:53 107/59 06/17/19 17:45 107/59 93 06/17/19 17:30 114/59 93 06/17/19 17:15 108/57 93 06/17/19 17:00 108/52 93 06/17/19 16:45 110/57 95 06/17/19 16:30 104/57 94 06/17/19 16:15 109/59 93 06/17/19 16:10 114/62 93 06/17/19 16:00 114/60 93 06/17/19 15:45 110/60 94 06/17/19 15:30 114/62 93 06/17/19 15:15 114/64 94 06/17/19 15:00 114/62 94 06/17/19 14:45 110/53 93 06/17/19 14:30 104/51 92 06/17/19 14:15 104/57 94 06/17/19 14:00 98/52 92 06/17/19 13:45 100/49 93 06/17/19 13:30 100/50 92 06/17/19 13:15 90/46 93 06/17/19 13:06 18 06/17/19 13:00 101/50 93 06/17/19 12:45 95/50 93 06/17/19 12:30 95/47 93 06/17/19 12:15 92/46 93 06/17/19 12:03 88/46 92 06/17/19 12:00 97/47 93 06/17/19 11:45 95/49 94 06/17/19 11:30 92/47 94 06/17/19 11:15 93/50 92 06/17/19 11:00 88/46 92 06/17/19 10:45 86/42 90 06/17/19 10:30 79/46 93 06/17/19 10:15 68/44 87 - Physical Examination General: Other (intubated on the vent) HEENT: Positive: Other (intubated) Cardiac: Positive: Reg Rate and Rhythm - Labs and Meds CBC 06/17/19 06/18/19 Range/Units 09:45 05:23 WBC 11.7 H 13.2 H (4.5-11.0) K/mm3 RBC 4.46 4.55 (3.65-5.03) M/mm3 Hgb 11.0 11.2 (10.1-14.3) gm/dl Hct 35.7 37.1 (30.3-42.9) % Plt Count 79 L 81 L (140-440) K/mm3 Comprehensive Metabolic Panel 06/18/19 Range/Units 05:23 Sodium 143 (137-145) mmol/L Potassium 4.7 (3.6-5.0) mmol/L Chloride 103.2 (98-107) mmol/L Carbon Dioxide 34 H (22-30) mmol/L BUN 36 H (7-17) mg/dL Creatinine 0.3 L (0.7-1.2) mg/dL Glucose 162 H (65-100) mg/dL Calcium 9.0 (8.4-10.2) mg/dL - Allied health notes Allied health notes reviewed: nursing
[2019-06-18] MEDS: AMIODARONE 200 MG TAB PO SCH (10:44)
[2019-06-18] MEDS: QUEtiapine 100 MG TAB PO SCH ×2 (10:44→21:00)
[2019-06-18] MEDS: LANSOPRAZOLE 30 MG SOLUTAB FEEDTUBE SCH (10:45)
[2019-06-18] MEDS: DOCUSATE SODIUM 100 MG/10 ML ORAL LIQD PO SCH ×2 (10:46→21:00)
[2019-06-18] MEDS: fentaNYL DRIP Premix 2,000 MCG/100 ML BAG IV SCH ×2 (11:30→21:01)
--- NOTE | 2019-06-18 16:06 | Progress Note ---
Assessment and Plan Acute and chronic hypoxic and hypercapnic respiratory failure on MVS Acute exacerbation of COPD Thrombocytopenia History of coronary artery disease/CHF History of depression; Obesity; BMI 32.2 Chronic narcotic dependence Decrease PEEP to 6 Give a dose of digoxin to help with heart rate control without affecting blood pressure Contnue with Cardizem, seems to do better with Cardizem than Amiodarone -Continue with MVS, Lung protective strategies, monitor airway pressures -Adjust minute ventilation as indicated for better gas exchange -VAP bundle addressed -Aspiration precautions, HOB>40 -Daily assessment for readiness for weaning; SAT and SBT - Fentanyl and Lorazepam infusions titrate to RASS -1 -Antibiotics for severe AE-COPD- on Cefepime for Pseudomona PNA -Steroids with slow taper -Bronchodilators with pulmonary hygiene -Stress ulcer prophylaxis, VTE prophylaxis (Prevacid, SCD) -Continue enteric nutritional support at goal -Monitor glycemic control, with target blood glucose 140-180 mg/dL while critically ill. -Avoid hypoglycemia - Wean supplemental oxygen for target O2 sats > 90% -ABG and CXR in am - Avoid benzodiazepines to reduce the possibility of delirium - prn analgesia per CPOT score - Mobility protocol , off loading and skin assessment per protocol for pressure ulcer prevention - Monitor hemodynamics closely -Nicotine withdrawal precautions -Smoking cessation counselling once she is extubated and able to participate in the discussion -Chronic home medications as indicated - continue other care per attending / other consultants CONDITION: CRITICAL PROGNOSIS: GUARDED CODE STATUS: FULL CODE Life threatening condition from acute and chronic hypoxic-hypercapnic respiratory failure with ventilator dependency Mortality/Morbidity- High Complexity of decision making- High The high probability of a clinically significant, sudden or life-threatening deterioration of the [respiratory, ] system(s) required my full and direct attention, intervention and personal management. The aggregate critical care time was [31] minutes without overlap. Time includes spent on; [x] Data Review and interpretation [x] Patient assessment and monitoring of vital signs [x] Documentation [x] Medication orders and management Subjective Date of service: 06/18/19 Principal diagnosis: Ac and ch hypoxic & hypercapnic resp failure; AE-COPD; Tobacco use disorder Interval history: Patient is seen today for: Ac and ch hypoxic hypercapnic resp failure; AE-COPD; Tobacco use disorder/Nicotine dependence; Hypernatremia; HTN (hypotensive at presentation 0; Chronic narcotic dependence ; Chronic back pain; Anxiety disorder Seen and examined at bedside; 24-hour events reviewed; nursing and respiratory care staff consulted; no adverse overnight events reported to me; laying in bed; AMS is persistent; remains hypoxemic on MVS; tachyarrthymias reported whenever sedation is weaned; Episodes of hypotension associated with sedation. Currently on Fentanyl infusion remains on full MVS- 16/450/8/50% ABG 7.39/57/73/34 Objective Vital Signs - 12hr 06/18/19 06/18/19 06/18/19 04:16 04:30 04:46 Temperature Pulse Rate 102 H 103 H 98 H Pulse Rate [ Bilateral] Pulse Rate [ Dorsalis Pedis] Pulse Rate [ Radial] Respiratory 13 13 16 Rate Respiratory Rate [Bilateral ] Blood Pressure 107/55 107/55 107/55 O2 Sat by Pulse 97 97 96 Oximetry 06/18/19 06/18/19 06/18/19 04:50 05:00 05:16 Temperature Pulse Rate 107 H 101 H 104 H Pulse Rate [ Bilateral] Pulse Rate [ Dorsalis Pedis] Pulse Rate [ Radial] Respiratory 17 16 Rate Respiratory Rate [Bilateral ] Blood Pressure 102/55 102/55 102/55 O2 Sat by Pulse 96 97 96 Oximetry 06/18/19 06/18/19 06/18/19 05:20 05:30 05:46 Temperature Pulse Rate 104 H 106 H 95 H Pulse Rate [ Bilateral] Pulse Rate [ Dorsalis Pedis] Pulse Rate [ Radial] Respiratory 16 18 Rate Respiratory Rate [Bilateral ] Blood Pressure 102/55 102/55 O2 Sat by Pulse 96 97 Oximetry 06/18/19 06/18/19 06/18/19 06:00 06:16 06:30 Temperature Pulse Rate 89 89 89 Pulse Rate [ Bilateral] Pulse Rate [ Dorsalis Pedis] Pulse Rate [ Radial] Respiratory 16 14 19 Rate Respiratory Rate [Bilateral ] Blood Pressure 100/54 100/54 100/54 O2 Sat by Pulse 97 97 97 Oximetry 06/18/19 06/18/19 06/18/19 06:46 07:00 07:16 Temperature Pulse Rate 89 87 87 Pulse Rate [ Bilateral] Pulse Rate [ Dorsalis Pedis] Pulse Rate [ Radial] Respiratory 16 16 16 Rate Respiratory Rate [Bilateral ] Blood Pressure 100/54 107/57 107/57 O2 Sat by Pulse 97 98 98 Oximetry 06/18/19 06/18/19 06/18/19 07:30 07:46 08:00 Temperature 98.6 F Pulse Rate 89 89 90 Pulse Rate [ Bilateral] Pulse Rate [ 90 Dorsalis Pedis] Pulse Rate [ 102 H Radial] Respiratory 13 19 17 Rate Respiratory Rate [Bilateral ] Blood Pressure 107/57 107/57 109/54 O2 Sat by Pulse 98 98 98 Oximetry 06/18/19 06/18/19 06/18/19 08:16 08:30 08:40 Temperature Pulse Rate 95 H 102 H 90 Pulse Rate [ Bilateral] Pulse Rate [ Dorsalis Pedis] Pulse Rate [ Radial] Respiratory 20 17 Rate Respiratory Rate [Bilateral ] Blood Pressure 109/54 109/54 109/54 O2 Sat by Pulse 98 98 98 Oximetry 06/18/19 06/18/19 06/18/19 08:46 09:00 09:16 Temperature Pulse Rate 100 H 113 H 105 H Pulse Rate [ Bilateral] Pulse Rate [ Dorsalis Pedis] Pulse Rate [ Radial] Respiratory 21 16 17 Rate Respiratory Rate [Bilateral ] Blood Pressure 109/54 109/54 130/70 O2 Sat by Pulse 99 98 98 Oximetry 06/18/19 06/18/19 06/18/19 09:30 09:46 09:56 Temperature Pulse Rate 109 H 107 H Pulse Rate [ Bilateral] Pulse Rate [ Dorsalis Pedis] Pulse Rate [ Radial] Respiratory 16 17 Rate Respiratory Rate [Bilateral ] Blood Pressure 130/70 130/70 O2 Sat by Pulse 98 98 98 Oximetry 06/18/19 06/18/19 06/18/19 10:00 10:16 10:30 Temperature Pulse Rate 120 H 109 H 137 H Pulse Rate [ Bilateral] Pulse Rate [ Dorsalis Pedis] Pulse Rate [ Radial] Respiratory 13 15 12 Rate Respiratory Rate [Bilateral ] Blood Pressure 130/70 148/51 148/51 O2 Sat by Pulse 97 96 93 Oximetry 06/18/19 06/18/19 06/18/19 10:46 11:00 11:16 Temperature Pulse Rate 123 H 116 H 150 H Pulse Rate [ Bilateral] Pulse Rate [ Dorsalis Pedis] Pulse Rate [ Radial] Respiratory 20 16 15 Rate Respiratory Rate [Bilateral ] Blood Pressure 148/51 148/51 111/62 O2 Sat by Pulse 94 93 93 Oximetry 06/18/19 06/18/19 06/18/19 11:30 11:46 12:00 Temperature 99.2 F Pulse Rate 133 H 131 H 130 H Pulse Rate [ Bilateral] Pulse Rate [ 130 H Dorsalis Pedis] Pulse Rate [ 102 H Radial] Respiratory 15 15 22 Rate Respiratory Rate [Bilateral ] Blood Pressure 111/62 111/62 107/55 O2 Sat by Pulse 93 92 92 Oximetry 06/18/19 06/18/19 06/18/19 12:16 12:30 12:46 Temperature Pulse Rate 127 H 126 H 127 H Pulse Rate [ Bilateral] Pulse Rate [ Dorsalis Pedis] Pulse Rate [ Radial] Respiratory 18 16 19 Rate Respiratory Rate [Bilateral ] Blood Pressure 107/55 107/55 107/55 O2 Sat by Pulse 93 92 93 Oximetry 06/18/19 06/18/19 06/18/19 13:00 13:16 13:30 Temperature Pulse Rate 122 H 119 H 118 H Pulse Rate [ Bilateral] Pulse Rate [ Dorsalis Pedis] Pulse Rate [ Radial] Respiratory 14 13 17 Rate Respiratory Rate [Bilateral ] Blood Pressure 103/55 103/55 103/55 O2 Sat by Pulse 94 97 95 Oximetry 06/18/19 06/18/19 06/18/19 13:46 14:00 14:30 Temperature Pulse Rate 119 H 118 H 124 H Pulse Rate [ Bilateral] Pulse Rate [ Dorsalis Pedis] Pulse Rate [ Radial] Respiratory 19 18 Rate Respiratory Rate [Bilateral ] Blood Pressure 103/55 96/59 124/53 O2 Sat by Pulse 95 94 Oximetry 06/18/19 06/18/19 14:35 15:04 Temperature Pulse Rate 114 H Pulse Rate [ 120 H Bilateral] Pulse Rate [ Dorsalis Pedis] Pulse Rate [ Radial] Respiratory Rate Respiratory 16 Rate [Bilateral ] Blood Pressure 96/59 O2 Sat by Pulse 94 Oximetry Constitutional: no acute distress, other (elderly looking obese CF, normocephalic on MVS without signidficant dyssynchrony) Eyes: non-icteric ENT: oropharynx moist, other (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) Neck: supple, no lymphadenopathy, no JVD Effort: mildly labored Ascultation: Bilateral: diminished breath sounds, rhonchi Percussion: Bilateral: not dull Cardiovascular: regular rate and rhythm Gastrointestinal: normoactive bowel sounds, soft, non-tender, non-distended Integumentary: normal Extremities: no cyanosis, no edema, pulses normal, no ischemia or petechiae Neurologic: non-focal exam (grossly), pupils equal and round, unable to assess Psychiatric: other (Unable to assess re: AMS) CBC and BMP: 06/21/19 04:58 06/21/19 04:58 ABG, PT/INR, D-dimer: ABG ABG pH 7.388 pH Units (7.350-7.450) 06/18/19 04:25 ABG pCO2 57.4 mm Hg 06/18/19 04:25 ABG pO2 72.9 mm Hg (80.0-90.0) L 06/18/19 04:25 ABG O2 Saturation 94.6 % (95.0-99.0) L 06/18/19 04:25 PT/INR, D-dimer PT 13.0 Sec. (12.2-14.9) 06/11/19 18:03 INR 0.97 (0.87-1.13) 06/11/19 18:03 Abnormal lab findings: Abnormal Labs 06/11/19 06/11/19 06/11/19 18:03 18:03 18:03 WBC MCH 25 L RDW 19.4 H Plt Count 124 L Summers % (Auto) 10.3 H Lymph # 1.1 L Seg Neutrophils % 74.4 H Seg Neuts % (Manual) Lymphocytes % (Manual) Seg Neutrophils # Man Lymphocytes # (Manual) ABG pH ABG pO2 ABG HCO3 ABG O2 Saturation ABG Base Excess ABG Hemoglobin Oxyhemoglobin Sodium 146 H Chloride Carbon Dioxide BUN 21 H Creatinine 0.4 L Glucose POC Glucose Calcium Magnesium 2.70 H CK-MB (CK-2) CK-MB (CK-2) Rel Index Albumin 3.5 L Urine WBC (Auto) Salicylates 1.0 L Acetaminophen 06/11/19 06/11/19 06/11/19 18:03 18:59 23:22 WBC MCH RDW Plt Count Summers % (Auto) Lymph # Seg Neutrophils % Seg Neuts % (Manual) Lymphocytes % (Manual) Seg Neutrophils # Man Lymphocytes # (Manual) ABG pH 7.340 L ABG pO2 76.0 L ABG HCO3 34.6 H ABG O2 Saturation ABG Base Excess 7.1 H ABG Hemoglobin 10.9 L Oxyhemoglobin 91.6 L Sodium Chloride Carbon Dioxide BUN Creatinine Glucose POC Glucose Calcium Magnesium CK-MB (CK-2) 5.5 H CK-MB (CK-2) Rel Index 5.5 H Albumin Urine WBC (Auto) Salicylates Acetaminophen < 5.0 L 06/12/19 06/12/19 06/12/19 00:29 02:04 04:20 WBC MCH RDW Plt Count Summers % (Auto) Lymph # Seg Neutrophils % Seg Neuts % (Manual) Lymphocytes % (Manual) Seg Neutrophils # Man Lymphocytes # (Manual) ABG pH 7.313 L ABG pO2 75.3 L ABG HCO3 29.9 H ABG O2 Saturation 94.3 L ABG Base Excess ABG Hemoglobin 10.8 L Oxyhemoglobin 92.0 L Sodium Chloride Carbon Dioxide BUN Creatinine Glucose POC Glucose 107 H Calcium Magnesium CK-MB (CK-2) CK-MB (CK-2) Rel Index Albumin Urine WBC (Auto) 30.0 H Salicylates Acetaminophen 06/12/19 06/12/19 06/12/19 05:09 05:09 05:09 WBC MCH 25 L RDW 19.4 H Plt Count 114 L Summers % (Auto) Lymph # Seg Neutrophils % Seg Neuts % (Manual) 91.0 H Lymphocytes % (Manual) 7.0 L Seg Neutrophils # Man Lymphocytes # (Manual) 0.4 L ABG pH ABG pO2 ABG HCO3 ABG O2 Saturation ABG Base Excess ABG Hemoglobin Oxyhemoglobin Sodium 147 H Chloride 107.4 H Carbon Dioxide BUN 19 H Creatinine 0.4 L Glucose 110 H POC Glucose Calcium 8.2 L Magnesium CK-MB (CK-2) CK-MB (CK-2) Rel Index 5.4 H Albumin Urine WBC (Auto) Salicylates Acetaminophen 06/12/19 06/12/19 06/13/19 06:42 23:21 04:14 WBC MCH RDW Plt Count Summers % (Auto) Lymph # Seg Neutrophils % Seg Neuts % (Manual) Lymphocytes % (Manual) Seg Neutrophils # Man Lymphocytes # (Manual) ABG pH ABG pO2 62.6 L ABG HCO3 29.6 H ABG O2 Saturation 91.0 L ABG Base Excess ABG Hemoglobin 10.3 L Oxyhemoglobin 89.0 L Sodium Chloride Carbon Dioxide BUN Creatinine Glucose POC Glucose 108 H 106 H Calcium Magnesium CK-MB (CK-2) CK-MB (CK-2) Rel Index Albumin Urine WBC (Auto) Salicylates Acetaminophen 06/13/19 06/13/19 06/13/19 04:54 04:54 12:20 WBC MCH 25 L RDW 19.2 H Plt Count 119 L Summers % (Auto) Lymph # Seg Neutrophils % Seg Neuts % (Manual) 95.0 H Lymphocytes % (Manual) 2.0 L Seg Neutrophils # Man 9.1 H Lymphocytes # (Manual) 0.2 L ABG pH ABG pO2 ABG HCO3 ABG O2 Saturation ABG Base Excess ABG Hemoglobin Oxyhemoglobin Sodium 149 H Chloride 111.4 H Carbon Dioxide BUN 26 H Creatinine 0.5 L Glucose 107 H POC Glucose 125 H Calcium Magnesium CK-MB (CK-2) CK-MB (CK-2) Rel Index Albumin Urine WBC (Auto) Salicylates Acetaminophen 06/13/19 06/14/19 06/14/19 17:25 03:44 04:55 WBC MCH RDW Plt Count Summers % (Auto) Lymph # Seg Neutrophils % Seg Neuts % (Manual) Lymphocytes % (Manual) Seg Neutrophils # Man Lymphocytes # (Manual) ABG pH ABG pO2 58.9 L ABG HCO3 29.5 H ABG O2 Saturation 88.7 L ABG Base Excess ABG Hemoglobin 10.2 L Oxyhemoglobin 86.7 L Sodium 150 H Chloride 110.4 H Carbon Dioxide BUN 20 H Creatinine 0.4 L Glucose 105 H POC Glucose 128 H Calcium Magnesium CK-MB (CK-2) CK-MB (CK-2) Rel Index Albumin Urine WBC (Auto) Salicylates Acetaminophen 06/14/19 06/14/19 06/14/19 05:37 11:58 21:00 WBC MCH RDW Plt Count Summers % (Auto) Lymph # Seg Neutrophils % Seg Neuts % (Manual) Lymphocytes % (Manual) Seg Neutrophils # Man Lymphocytes # (Manual) ABG pH 7.321 L ABG pO2 60.0 L ABG HCO3 31.4 H ABG O2 Saturation 87.3 L ABG Base Excess 4.1 H ABG Hemoglobin 10.6 L Oxyhemoglobin 84.8 L Sodium Chloride Carbon Dioxide BUN Creatinine Glucose POC Glucose 111 H 116 H Calcium Magnesium CK-MB (CK-2) CK-MB (CK-2) Rel Index Albumin Urine WBC (Auto) Salicylates Acetaminophen 06/15/19 06/15/19 06/15/19 00:22 03:25 05:08 WBC MCH RDW Plt Count [place]mers % (Auto) Lymph # Seg Neutrophils % Seg Neuts % (Manual) Lymphocytes % (Manual) Seg Neutrophils # Man Lymphocytes # (Manual) ABG pH 7.317 L ABG pO2 ABG HCO3 31.5 H ABG O2 Saturation ABG Base Excess 4.1 H ABG Hemoglobin 10.4 L Oxyhemoglobin 94.1 L Sodium Chloride Carbon Dioxide 31 H BUN 23 H Creatinine 0.3 L Glucose 120 H POC Glucose 108 H Calcium Magnesium CK-MB (CK-2) CK-MB (CK-2) Rel Index Albumin Urine WBC (Auto) Salicylates Acetaminophen 06/15/19 06/15/19 06/15/19 05:24 11:41 17:38 WBC MCH RDW Plt Count [place]mers % (Auto) Lymph # Seg Neutrophils % Seg Neuts % (Manual) Lymphocytes % (Manual) Seg Neutrophils # Man Lymphocytes # (Manual) ABG pH ABG pO2 ABG HCO3 ABG O2 Saturation ABG Base Excess ABG Hemoglobin Oxyhemoglobin Sodium Chloride Carbon Dioxide BUN Creatinine Glucose POC Glucose 111 H 154 H 115 H Calcium Magnesium CK-MB (CK-2) CK-MB (CK-2) Rel Index Albumin Urine WBC (Auto) Salicylates Acetaminophen 06/15/19 06/16/19 06/16/19 23:31 03:40 05:18 WBC MCH RDW Plt Count [place]mers % (Auto) Lymph # Seg Neutrophils % Seg Neuts % (Manual) Lymphocytes % (Manual) Seg Neutrophils # Man Lymphocytes # (Manual) ABG pH 7.313 L ABG pO2 96.4 H ABG HCO3 35.2 H ABG O2 Saturation ABG Base Excess 7.2 H ABG Hemoglobin 10.5 L Oxyhemoglobin 94.9 L Sodium Chloride Carbon Dioxide BUN Creatinine Glucose POC Glucose 161 H 158 H Calcium Magnesium CK-MB (CK-2) CK-MB (CK-2) Rel Index Albumin Urine WBC (Auto) Salicylates Acetaminophen 06/16/19 06/16/19 06/16/19 05:45 05:45 12:06 WBC 12.1 H MCH 25 L RDW 18.7 H Plt Count 93 L Summers % (Auto) Lymph # Seg Neutrophils % Seg Neuts % (Manual) 97.0 H Lymphocytes % (Manual) 0 L Seg Neutrophils # Man 11.7 H Lymphocytes # (Manual) 0.0 L ABG pH ABG pO2 ABG HCO3 ABG O2 Saturation ABG Base Excess ABG Hemoglobin Oxyhemoglobin Sodium Chloride Carbon Dioxide 33 H BUN 25 H Creatinine 0.3 L Glucose 165 H POC Glucose 178 H Calcium Magnesium CK-MB (CK-2) CK-MB (CK-2) Rel Index Albumin Urine WBC (Auto) Salicylates Acetaminophen 06/16/19 06/16/19 06/17/19 17:55 23:42 03:35 WBC MCH RDW Plt Count [place] % (Auto) Lymph # Seg Neutrophils % Seg Neuts % (Manual) Lymphocytes % (Manual) Seg Neutrophils # Man Lymphocytes # (Manual) ABG pH ABG pO2 73.2 L ABG HCO3 35.2 H ABG O2 Saturation 94.5 L ABG Base Excess 8.8 H ABG Hemoglobin 10.7 L Oxyhemoglobin 92.6 L Sodium Chloride Carbon Dioxide BUN Creatinine Glucose POC Glucose 180 H 160 H Calcium Magnesium CK-MB (CK-2) CK-MB (CK-2) Rel Index Albumin Urine WBC (Auto) Salicylates Acetaminophen 06/17/19 06/17/19 06/17/19 04:57 09:45 11:59 WBC 11.7 H MCH 25 L RDW 18.2 H Plt Count 79 L Summers % (Auto) Lymph # Seg Neutrophils % Seg Neuts % (Manual) 96.0 H Lymphocytes % (Manual) 3.0 L Seg Neutrophils # Man 11.2 H Lymphocytes # (Manual) 0.4 L ABG pH ABG pO2 ABG HCO3 ABG O2 Saturation ABG Base Excess ABG Hemoglobin Oxyhemoglobin Sodium Chloride Carbon Dioxide 34 H BUN 31 H Creatinine 0.3 L Glucose 153 H POC Glucose 163 H Calcium Magnesium CK-MB (CK-2) CK-MB (CK-2) Rel Index Albumin Urine WBC (Auto) Salicylates Acetaminophen 06/17/19 06/17/19 06/18/19 17:33 23:39 04:25 WBC MCH RDW Plt Count [place]mers % (Auto) Lymph # Seg Neutrophils % Seg Neuts % (Manual) Lymphocytes % (Manual) Seg Neutrophils # Man Lymphocytes # (Manual) ABG pH ABG pO2 72.9 L ABG HCO3 33.8 H ABG O2 Saturation 94.6 L ABG Base Excess 7.3 H ABG Hemoglobin 11.1 L Oxyhemoglobin 92.8 L Sodium Chloride Carbon Dioxide BUN Creatinine Glucose POC Glucose 186 H 161 H Calcium Magnesium CK-MB (CK-2) CK-MB (CK-2) Rel Index Albumin Urine WBC (Auto) Salicylates Acetaminophen 06/18/19 06/18/19 06/18/19 05:23 05:23 05:37 WBC 13.2 H MCH 25 L RDW 18.3 H Plt Count 81 L Summers % (Auto) Lymph # Seg Neutrophils % Seg Neuts % (Manual) 96.0 H Lymphocytes % (Manual) 4.0 L Seg Neutrophils # Man 12.7 H Lymphocytes # (Manual) 0.5 L ABG pH ABG pO2 ABG HCO3 ABG O2 Saturation ABG Base Excess ABG Hemoglobin Oxyhemoglobin Sodium Chloride Carbon Dioxide 34 H BUN 36 H Creatinine 0.3 L Glucose 162 H POC Glucose 177 H Calcium Magnesium CK-MB (CK-2) CK-MB (CK-2) Rel Index Albumin Urine WBC (Auto) Salicylates Acetaminophen 06/18/19 12:26 WBC MCH RDW Plt Count [place] % (Auto) Lymph # Seg Neutrophils % Seg Neuts % (Manual) Lymphocytes % (Manual) Seg Neutrophils # Man Lymphocytes # (Manual) ABG pH ABG pO2 ABG HCO3 ABG O2 Saturation ABG Base Excess ABG Hemoglobin Oxyhemoglobin Sodium Chloride Carbon Dioxide BUN Creatinine Glucose POC Glucose 156 H Calcium Magnesium CK-MB (CK-2) CK-MB (CK-2) Rel Index Albumin Urine WBC (Auto) Salicylates Acetaminophen Allied health notes reviewed: nursing
[2019-06-18] MEDS: DIGOXIN 0.5 MG/2 ML INJ IV SCH (17:16)
--- NOTE | 2019-06-18 17:39 | Progress Note ---
Assessment and Plan Assessment and plan: 59-year-old female patient with significant history of hypertension GERD depression COPD coronary artery disease CHF was admitted through emergency room with acute hypoxic hypercapnic respiratory failure requiring intubation and ventilatory support Admitted to ICU evaluated by pulmonary critical, cardiology for A. fib flutter with rapid ventricular rate, started on Cardizem and amiodarone Not a candidate for anticoagulation due to history of severe GI bleeding. Disposition; wean as tolerated and extubate DC when medically stable Patient had mild hypotension, improved with holding Blood pressure and diuretic meds, closely monitor Intubated on vent, wean as tolerated and extubate Sputum cultures positive for Pseudomonas, continue cefepime --Acute hypoxic and hypercapnic respiratory failure: Requiring intubation and ventilatory support Nebulizers, IV steroids, IV antibiotics inhalation steroids Pulmonary critical following, supportive care Wean as tolerated and extubate --Acute exacerbation of COPD : Nebulizers, tapering doses steroids --Left lung basilar density; pneumonia Continue empiric antibiotics follow cultures Sputum cultures positive for Pseudomonas Continue cefepime --Paroxysmal A. fib/flutter; RVR On amiodarone, digoxin and Cardizem Closely monitor, cardiology following No chronic anticoagulation due to history of GI bleed --History of coronary artery disease/CHF Low-dose Lasix, continue other cardiac meds --Hypernatremia; resolved monitor sodium levels --History of depression; Resume antidepressive medications --Ongoing tobacco use; Will student counselor smoking cessation when patient is more stable Nicotine patch as needed --Obesity; BMI 32.2 Patient needs weight reduction when medically stable Thrombocytopenia -- monitor --Tube feeding diet; per dietary recommendations --DVT prophylaxis; Lovenox --Full CODE STATUS Restraints in place Patient is critically ill with poor prognosis Closely monitor the patient and adjust management as needed Follow healthcare economics consultant recommendations The high probability of a clinically significant, sudden or life threatening deterioration of the [respiratory, CVS] system(s) required my full and direct attention, intervention and personal management. The aggregate critical care time was [33] minutes. This time is in addition to time spent performing reported procedures but includes the following: [x] Data Review and interpretation [x] Patient assessment and monitoring of vital signs [x] Documentation [x] Medication orders and management Critical care time 33 minutes Monitor closely and adjust management as needed History Interval history: Patient seen and examined, remains on Mechanical venitlation Hospitalist Physical - Physical exam Narrative exam: General appearance: Present: no acute distress, well-nourished, obese, other (Intubated on ventilatory support sedated) - EENT Eyes: Present: PERRL. Absent: scleral icterus - Neck Neck: Present: supple, normal ROM - Respiratory Respiratory effort: normal Respiratory: bilateral: diminished, rhonchi, negative: rales, wheezing - Cardiovascular Rhythm: irregularly irregular Heart Sounds: Present: S1 & S2 - Extremities Extremities: no ischemia Extremity abnormal: edema - Abdominal General gastrointestinal: soft, non-tender, non-distended, normal bowel sounds - Integumentary Integumentary: Present: clear, warm - Psychiatric Psychiatric: other (Intubated on vent) - Neurologic Neurologic: other (Intubated on vent) - Constitutional Vitals: Temp Pulse Resp BP Pulse Ox 99.2 F 124 H 16 122/64 94 06/18/19 12:00 06/18/19 17:16 06/18/19 15:04 06/18/19 17:16 06/18/19 14:35 General appearance: Present: no acute distress, well-nourished, obese, other (Intubated on ventilatory support sedated) Results - Labs CBC & Chem 7: 06/18/19 05:23 06/18/19 05:23 Labs: Laboratory Last Values WBC 13.2 K/mm3 (4.5-11.0) H 06/18/19 05:23 RBC 4.55 M/mm3 (3.65-5.03) 06/18/19 05:23 Hgb 11.2 gm/dl (10.1-14.3) 06/18/19 05:23 Hct 37.1 % (30.3-42.9) 06/18/19 05:23 MCV 82 fl (79-97) 06/18/19 05:23 MCH 25 pg (28-32) L 06/18/19 05:23 MCHC 30 % (30-34) 06/18/19 05:23 RDW 18.3 % (13.2-15.2) H 06/18/19 05:23 Plt Count 81 K/mm3 (140-440) L 06/18/19 05:23 Lymph % (Auto) 13.7 % (13.4-35.0) 06/11/19 18:03 [place] % (Auto) 10.3 % (0.0-7.3) H 06/11/19 18:03 Eos % (Auto) 0.8 % (0.0-4.3) 06/11/19 18:03 Baso % (Auto) 0.8 % (0.0-1.8) 06/11/19 18:03 Lymph # 1.1 K/mm3 (1.2-5.4) L 06/11/19 18:03 [place] # 0.8 K/mm3 (0.0-0.8) 06/11/19 18:03 Eos # 0.1 K/mm3 (0.0-0.4) 06/11/19 18:03 Baso # 0.1 K/mm3 (0.0-0.1) 06/11/19 18:03 Add Manual Diff Complete 06/18/19 05:23 Total Counted 100 06/18/19 05:23 Seg Neutrophils % Bistro Server 06/18/19 05:23 Seg Neuts % (Manual) 96.0 % (40.0-70.0) H 06/18/19 05:23 Band Neutrophils % 0 % 06/18/19 05:23 Lymphocytes % (Manual) 4.0 % (13.4-35.0) L 06/18/19 05:23 Reactive Lymphs % (Man) 0 % 06/18/19 05:23 Monocytes % (Manual) 0 % (0.0-7.3) 06/18/19 05:23 Eosinophils % (Manual) 0 % (0.0-4.3) 06/18/19 05:23 Basophils % (Manual) 0 % (0.0-1.8) 06/18/19 05:23 Metamyelocytes % 0 % 06/18/19 05:23 Myelocytes % 0 % 06/18/19 05:23 Promyelocytes % 0 % 06/18/19 05:23 Blast Cells % 0 % 06/18/19 05:23 Nucleated RBC % Not Reportable 06/18/19 05:23 Seg Neutrophils # 6.0 K/mm3 (1.8-7.7) 06/11/19 18:03 Seg Neutrophils # Man 12.7 K/mm3 (1.8-7.7) H 06/18/19 05:23 Band Neutrophils # 0.0 K/mm3 05/01/20 05:23 Lymphocytes # (Manual) 0.5 K/mm3 (1.2-5.4) L 06/18/19 05:23 Abs React Lymphs (Man) 0.0 K/mm3 06/18/19 05:23 Monocytes # (Manual) 0.0 K/mm3 (0.0-0.8) 06/18/19 05:23 Eosinophils # (Manual) 0.0 K/mm3 (0.0-0.4) 06/18/19 05:23 Basophils # (Manual) 0.0 K/mm3 (0.0-0.1) 06/18/19 05:23 Metamyelocytes # 0.0 K/mm3 06/18/19 05:23 Myelocytes # 0.0 K/mm3 06/18/19 05:23 Promyelocytes # 0.0 K/mm3 06/18/19 05:23 Blast Cells # 0.0 K/mm3 06/18/19 05:23 WBC Morphology Not Reportable 06/18/19 05:23 Hypersegmented Neuts Not Reportable 06/18/19 05:23 Hyposegmented Neuts Not Reportable 06/18/19 05:23 Hypogranular Neuts Not Reportable 06/18/19 05:23 Smudge Cells Not Reportable 06/18/19 05:23 Toxic Granulation Not Reportable 06/18/19 05:23 Toxic Vacuolation Not Reportable 06/18/19 05:23 Dohle Bodies Not Reportable 06/18/19 05:23 Pelger-Huet Anomaly Not Reportable 06/18/19 05:23 Neha Rods Not Reportable 06/18/19 05:23 Platelet Estimate Consistent w auto 06/18/19 05:23 Clumped Platelets Not Reportable 06/18/19 05:23 Plt Clumps, EDTA Not Reportable 06/18/19 05:23 Large Platelets Not Reportable 06/18/19 05:23 Giant Platelets Not Reportable 06/18/19 05:23 Platelet Satelliting Not Reportable 06/18/19 05:23 Plt Morphology Comment Not Reportable 06/18/19 05:23 RBC Morphology Not Reportable 06/18/19 05:23 Dimorphic RBCs Not Reportable 06/18/19 05:23 Polychromasia Not Reportable 06/18/19 05:23 Hypochromasia Few 06/18/19 05:23 Poikilocytosis Not Reportable 06/18/19 05:23 Anisocytosis Few 06/18/19 05:23 Microcytosis Not Reportable 06/18/19 05:23 Macrocytosis Not Reportable 06/18/19 05:23 Spherocytes Not Reportable 06/18/19 05:23 Pappenheimer Bodies Not Reportable 06/18/19 05:23 Sickle Cells Not Reportable 06/18/19 05:23 Target Cells Not Reportable 06/18/19 05:23 Tear Drop Cells Not Reportable 06/18/19 05:23 Ovalocytes Not Reportable 06/18/19 05:23 Helmet Cells Not Reportable 06/18/19 05:23 [place] Bodies Not Reportable 06/18/19 05:23 [place] Rings Not Reportable 06/18/19 05:23 [place] Cells Not Reportable 06/18/19 05:23 Bite Cells Not Reportable 06/18/19 05:23 Crenated Cell Not Reportable 06/18/19 05:23 Elliptocytes Not Reportable 06/18/19 05:23 Acanthocytes (Spur) Not Reportable 06/18/19 05:23 Rouleaux Not Reportable 06/18/19 05:23 Hemoglobin C Crystals Not Reportable 06/18/19 05:23 Schistocytes Few 06/18/19 05:23 Malaria parasites Not Reportable 06/18/19 05:23 Hernan Bodies Not Reportable 06/18/19 05:23 Hem Pathologist Commnt No 06/18/19 05:23 PT 13.0 Sec. (12.2-14.9) 06/11/19 18:03 INR 0.97 (0.87-1.13) 06/11/19 18:03 ABG pH 7.388 pH Units (7.350-7.450) 06/18/19 04:25 ABG pCO2 57.4 mm Hg 06/18/19 04:25 ABG pO2 72.9 mm Hg (80.0-90.0) L 06/18/19 04:25 ABG HCO3 33.8 mmol/L (20.0-26.0) H 06/18/19 04:25 ABG O2 Saturation 94.6 % (95.0-99.0) L 06/18/19 04:25 ABG O2 Content 14.5 (0.0-44) 06/18/19 04:25 ABG Base Excess 7.3 mmol/L (-2.0-3.0) H 06/18/19 04:25 ABG Hemoglobin 11.1 gm/dl (12.0-16.0) L 06/18/19 04:25 ABG Carboxyhemoglobin 1.5 % (0.0-5.0) 06/18/19 04:25 ABG Methemoglobin 0.4 % (0.0-1.5) 06/18/19 04:25 Oxyhemoglobin 92.8 % (95.0-99.0) L 06/18/19 04:25 FiO2 50 % 06/18/19 04:25 Sodium 143 mmol/L (137-145) 06/18/19 05:23 Potassium 4.7 mmol/L (3.6-5.0) 06/18/19 05:23 Chloride 103.2 mmol/L (98-107) 06/18/19 05:23 Carbon Dioxide 34 mmol/L (22-30) H 06/18/19 05:23 Anion Gap 11 mmol/L 06/18/19 05:23 BUN 36 mg/dL (7-17) H 06/18/19 05:23 Creatinine 0.3 mg/dL (0.7-1.2) L 06/18/19 05:23 Estimated GFR > 60 ml/min 06/18/19 05:23 BUN/Creatinine Ratio 120 % 06/18/19 05:23 Glucose 162 mg/dL (65-100) H 06/18/19 05:23 POC Glucose 156 (70-105) H 06/18/19 12:26 Calcium 9.0 mg/dL (8.4-10.2) 06/18/19 05:23 Phosphorus 4.50 mg/dL (2.5-4.5) 06/15/19 05:08 Magnesium 2.20 mg/dL (1.7-2.3) 06/15/19 05:08 Total Bilirubin 0.30 mg/dL (0.1-1.2) 06/11/19 18:03 AST 14 units/L (5-40) 06/11/19 18:03 ALT 8 units/L (7-56) 06/11/19 18:03 Alkaline Phosphatase 85 units/L (35-129) 06/11/19 18:03 Total Creatine Kinase 74 units/L (30-135) 06/12/19 05:09 CK-MB (CK-2) 4.0 ng/mL (0.0-4.0) 06/12/19 05:09 CK-MB (CK-2) Rel Index 5.4 (0-4) H 06/12/19 05:09 Troponin T < 0.010 ng/mL (0.00-0.029) 06/12/19 05:09 Total Protein 6.4 g/dL (6.3-8.2) 06/11/19 18:03 Albumin 3.5 g/dL (3.9-5) L 06/11/19 18:03 Albumin/Globulin Ratio 1.2 % 06/11/19 18:03 Urine Color Yellow (Yellow) 06/12/19 02:04 Urine Turbidity Clear (Clear) 06/12/19 02:04 Urine pH 5.0 (5.0-7.0) 06/12/19 02:04 Ur Specific [place] 1.027 (1.003-1.030) 06/12/19 02:04 Urine Protein 30 mg/dl mg/dL (Negative) 06/12/19 02:04 Urine Glucose (UA) Neg mg/dL (Negative) 06/12/19 02:04 Urine Ketones 80 mg/dL (Negative) 06/12/19 02:04 Urine Blood Lg (Negative) 06/12/19 02:04 Urine Nitrite Neg (Negative) 06/12/19 02:04 Urine Bilirubin Neg (Negative) 06/12/19 02:04 Urine Urobilinogen 2.0 mg/dL (<2.0) 06/12/19 02:04 Ur Leukocyte Esterase Neg (Negative) 06/12/19 02:04 Urine WBC (Auto) 30.0 /HPF (0.0-6.0) H 06/12/19 02:04 Urine RBC (Auto) > 182.0 /HPF (0.0-6.0) 06/12/19 02:04 Urine Bacteria (Auto) 1+ /HPF (Negative) 06/12/19 02:04 Urine Mucus 3+ /HPF 06/12/19 02:04 Urine Yeast (Budding) Few /HPF 06/12/19 02:04 Salicylates 1.0 mg/dL (2.8-20.0) L 06/11/19 18:03 Acetaminophen < 5.0 ug/mL (10.0-30.0) L 06/11/19 18:03 [place]/IV: Voiding Method Indwelling Catheter IV Catheter Type [Left Peripheral IV Antecubital] IV Catheter Type [Right Wrist] Peripheral IV IV Catheter Type [Right Hand] Peripheral IV Active Medications - Current Medications Current Medications: Generic Name Dose Route Start Last Admin Trade Name Freq PRN Reason Stop Dose Admin Acetaminophen 650 mg 06/11/19 22:48 Tylenol PO Q4H PRN Pain MILD(1-3)/Fever >100.5/PRAJAPATI Albuterol 2.5 mg 06/14/19 08:20 Proventil IH Q4HRT PRN Shortness Of Breath Albuterol/Ipratropium 1 ampul 06/14/19 14:00 06/18/19 14:41 Duoneb *Not For Prn Use* IH 1 ampul TIDRT DOMINICK Administration Alprazolam 0.25 mg 06/13/19 10:23 06/13/19 23:32 Xanax PO 0.25 mg Q8H PRN Administration Anxiety Amiodarone HCl 200 mg 06/17/19 10:00 06/18/19 10:44 Cordarone PO 200 mg QDAY DOMINICK Administration Lipase/Protease/Amylase 1 each 06/13/19 17:52 Pancrejohanne Pereira 10,500 Unit FEEDTUBE PRN PRN For Clogged Feeding Tube Arformoterol Tartrate 15 mcg 06/14/19 20:00 06/18/19 08:50 Brovana Nebu IH 15 mcg Q12HRT DOMINICK Administration Budesonide 0.5 mg 06/14/19 20:00 06/18/19 08:50 Pulmicort IH 0.5 mg Q12HRT DOMINICK Administration Dextrose 50 ml 06/11/19 22:48 D50w (25gm) Syringe IV Q30MIN PRN Hypoglycemia Protocol Digoxin 0.125 mg 06/16/19 17:00 06/18/19 17:16 Lanoxin IV 0.125 mg QDAY@1700 DOMINICK Administration Diltiazem HCl 30 mg 06/16/19 11:30 06/18/19 14:30 Cardizem PO 30 mg Q8HR DOMINICK Administration Docusate Sodium 100 mg 06/18/19 11:00 06/18/19 10:46 Colace PO 100 mg BID DOMINICK Administration Fentanyl 50 mcg 06/11/19 17:45 06/11/19 20:52 Sublimaze IV 50 mcg Q10MIN PRN Administration ANALGESIA Hydrophilic Ointment 1 applic 06/11/19 17:44 Vaseline Lip Therapy TP Q2HR PRN Dry Lips Fentanyl Citrate 2,000 mcg in 100 mls @ 3.742 mls/hr 06/11/19 18:00 06/18/19 00:00 Fentanyl Drip Premix IV 1.5 mcg/kg/hr TITR DOMINICK 5.613 mls/hr Titration Protocol 1 MCG/KG/HR Lorazepam 100 mg/ Sodium 100 mls @ 1 mls/hr 06/11/19 18:00 06/14/19 22:15 Chloride/ Miscellaneous IV 0 mg/hr Information TITR DOMINICK 0 mls/hr Titration Protocol 1 MG/HR Cefepime HCl 1 gm in 100 mls @ 200 mls/hr 06/14/19 14:00 06/18/19 15:00 Cefepime/Ns 1 Gm/100 Ml IV 06/19/19 13:59 Infused Q8HR DOMINICK Infusion Protocol Sodium Chloride 500 mls @ 5 mls/hr 06/18/19 04:00 06/17/19 23:30 Nacl 0.9% 500 Ml IV 5 mls/hr DIRECT DOMINICK Administration Insulin Human Lispro 0 unit 06/12/19 00:00 06/18/19 12:30 Humalog SUB-Q 2 unit Q6HR DOMINICK Administration Protocol Lansoprazole 30 mg 06/13/19 11:00 06/18/19 10:45 Prevacid Solutab FEEDTUBE 30 mg QDAY DOMINICK Administration Methylprednisolone Sodium Succinate 60 mg 06/17/19 12:00 06/18/19 12:30 Solu-Medrol IV 60 mg Q6HR DOMINICK Administration Multi-Ingred Cream/Lotion/Oil/Oint 1 applic 06/11/19 17:44 Artificial Tears Ophth Oint OU Q4HR PRN Dry Eye(s) Ondansetron HCl 4 mg 04/24/20 22:48 Zofran IV Q8H PRN Nausea And Vomiting Quetiapine Fumarate 300 mg 06/13/19 11:00 06/18/19 10:44 Seroquel PO 300 mg BID DOMINICK Administration Simple Syrup 15 ml 06/13/19 17:52 Simple Syrup FEEDTUBE PRN PRN Hypoglycemia Simple Syrup 30 ml 06/13/19 17:52 Simple Syrup FEEDTUBE PRN PRN Hypoglycemia Sodium Bicarbonate 325 mg 06/13/19 17:52 Sodium Bicarbonate FEEDTUBE PRN PRN For Clogged Feeding Tube Sodium Chloride 10 ml 06/12/19 10:00 06/18/19 10:46 Sodium Chloride Flush Syringe 10 Ml IV 10 ml BID DOMINICK Administration Sodium Chloride 10 ml 06/11/19 22:48 06/13/19 22:00 Sodium Chloride Flush Syringe 10 Ml IV 10 ml PRN PRN Administration LINE FLUSH Venlafaxine HCl 75 mg 06/13/19 14:00 06/18/19 14:30 Effexor PO 75 mg TID DOMINICK Administration Nutrition/Malnutrition Assess - Dietary Evaluation Nutrition/Malnutrition Findings: Nutrition Notes Start: 06/12/19 11:05 Freq: Status: Active Protocol: Document 06/16/19 13:28 LM (Rec: 06/16/19 13:45 LM [email or web address]) Nutrition Notes Initial or Follow up Reassessment Current Diagnosis COPD,Coronary Artery Disease, Hypertension,Heart Failure, Respiratory Failure Other Pertinent Diagnosis COPD exacerbation Current Diet Promote 1.0 at 60ml/hr Labs/Tests BG 165 Na 144 Pertinent Medications Humalog Solumedrol Height 5 ft Weight 74.843 kg [place] Body Weight (kg) 45.45 BMI 32.2 Weight Status Obese Subjective/Other Information Promote running at goal. Na in normal range. Percent of energy/protein needs met: 97%/99% Burn Absent Trauma Absent Current % PO Negligible Minimum of two criteria No #1 Nutrition Diagnosis Inadequate oral intake Diagnosis Progress(for reassessment Continues documentation) Is patient on ventilator? Yes Is Patient Ambulatory and/or Out of Bed No REE-([facility]-confined to bed) [phone] Calculation Used for Recommendations [facility] Additional Notes Pro needs 2g/kg IBW: 91g/day 1ml/kcal Nutrition Intervention Change Diet Order: Continue TF Nutrition Support: Promote 1.0 at 60ml/hr Flush 150 q4h for hypernatremia Flush 50ml q4h once resolved Kcal 1,440 Protein (gm) 90 Fluid (mL) 1,208 Goal #1 TF tolerance Goal #2 Meet at least 75% of energy and protein needs Anticipated Discharge Needs: Unable to identify at this time Follow-Up By: 06/21/19 Additional Comments F/U for TF tolerance
[2019-06-18] MEDS: ACETAMINOPHEN 325 MG TAB PO PRN (21:23)
[2019-06-19] MEDS: methylPREDNISolone Sod Succinate 125 MG/2 ML INJ IV SCH ×6 (00:07→23:55)
[2019-06-19] MEDS: INSULIN LISPRO 100 UNIT/ML SUB-Q SCH ×4 (00:29→17:58)
--- NOTE | 2019-06-19 01:49 | XRay Report ---
CHEST 1 VIEW INDICATION: follow up respiratory failure. COMPARISON: Previous day. FINDINGS: Support devices: Unchanged. Heart: Stable cardiomegaly. Lungs/Pleura: Left basilar effusion/volume loss remains. Overall aeration is mildly diminished. Additional findings: None. IMPRESSION: Mild decreased aeration. Signer Name: Hugh Daley MD Signed: 06/19/2019 1:45 AM Workstation Name: [id number]
[2019-06-19] MEDS: ACETAMINOPHEN 325 MG TAB PO PRN ×2 (02:02→10:03)
[2019-06-19] MEDS: dilTIAZem 30 MG TAB PO SCH ×4 (04:46→21:08)
[2019-06-19] MEDS: CEFEPIME/NS 1 GM/100 ML 1 GM/100 ML BAG IV SCH ×4 (04:46→21:27)
[2019-06-19] MEDS: BUDESONIDE 0.5 MG/2 ML NEBU IH SCH ×2 (07:35→21:29)
[2019-06-19] MEDS: IPRATROPIUM/ALBUTEROL SULFATE 3 ML AMPUL.NEB IH SCH ×3 (07:35→21:29)
[2019-06-19] MEDS: ARFORMOTEROL 15 MCG/2 ML NEBU IH SCH ×2 (07:35→21:29)
[2019-06-19] MEDS ORDERED: VANCOMYCIN PHARMACY TO DOSE IV SCH (09:00)
--- NOTE | 2019-06-19 09:47 | Progress Note ---
Assessment and Plan Assessment and plan: 59-year-old female patient with significant history of hypertension GERD depression COPD coronary artery disease CHF was admitted through emergency room with acute hypoxic hypercapnic respiratory failure requiring intubation and ventilatory support. Admitted to ICU evaluated by pulmonary critical, cardiology for A. fib flutter with rapid ventricular rate, started on Cardizem and amiodarone. Not a candidate for anticoagulation due to history of severe GI bleeding. Imaging personally reviewed: Chest x-ray: Left basilar effusion, previous x-rays with bibasilar opacities Patient had mild hypotension, improved with holding, Blood pressure and diuretic meds, closely monitor Intubated on vent, wean as tolerated and extubate, Sputum cultures positive for Pseudomonas, continue cefepime --Sepsis: R/O COVID19. Isolation iniated per discussion, Continue vancomycin and cefepime empirically pending new cultures, ID consulted --Acute hypoxic and hypercapnic respiratory failure: Requiring intubation and ventilatory support Nebulizers, IV steroids, IV antibiotics inhalation steroids Pulmonary critical following, supportive care Wean as tolerated and extubate --Acute exacerbation of COPD : Nebulizers, tapering doses steroids --Left lung basilar density; pneumonia Continue empiric antibiotics follow cultures Sputum cultures positive for Pseudomonas Continue cefepime --Paroxysmal A. fib/flutter; RVR On amiodarone, digoxin and Cardizem Closely monitor, cardiology following No chronic anticoagulation due to history of GI bleed --History of coronary artery disease/CHF Low-dose Lasix, continue other cardiac meds --Hypernatremia; resolved monitor sodium levels --History of depression; Resume antidepressive medications --Ongoing tobacco use; Will pre parole counseling aide smoking cessation when patient is more stable Nicotine patch as needed --Obesity; BMI 32.2 Patient needs weight reduction when medically stable Thrombocytopenia -- monitor --Tube feeding diet; per dietary recommendations --DVT prophylaxis; Lovenox --Full CODE STATUS Restraints in place Patient is critically ill with poor prognosis Closely monitor the patient and adjust management as needed Follow operations consultant recommendations The high probability of a clinically significant, sudden or life threatening deterioration of the [respiratory, CVS] system(s) required my full and direct attention, intervention and personal management. The aggregate critical care time was [33] minutes. This time is in addition to time spent performing reported procedures but includes the following: [x] Data Review and interpretation [x] Patient assessment and monitoring of vital signs [x] Documentation [x] Medication orders and management Critical care time 35 minutes Monitor closely and adjust management as needed History Interval history: Patient seen and examined, remains on Mechanical ventilation, now with recurrent fevers. Follows commands while awake. Hospitalist Physical - Physical exam Narrative exam: General appearance: Present: On mechanical ventilation, restless well-nourished, obese, other (Intubated on ventilatory support sedated) - EENT Eyes: Present: PERRL. Absent: scleral icterus - Neck Neck: Present: supple, normal ROM - Respiratory Respiratory effort: normal Respiratory: bilateral: diminished, rhonchi, negative: rales, wheezing - Cardiovascular Rhythm: irregularly irregular Heart Sounds: Present: S1 & S2 - Extremities Extremities: no ischemia Extremity abnormal: edema - Abdominal General gastrointestinal: soft, non-tender, non-distended, normal bowel sounds - Integumentary Integumentary: Present: clear, warm - Psychiatric Psychiatric: other (Intubated on vent) - Neurologic Neurologic: other (Intubated on vent) - Constitutional Vitals: Temp Pulse Resp BP Pulse Ox 101.4 F H 117 H 19 111/71 94 06/19/19 04:00 06/19/19 09:00 06/19/19 09:00 06/19/19 09:00 06/19/19 09:00 General appearance: Present: no acute distress, well-nourished, obese, other (Intubated on ventilatory support sedated) Results - Labs CBC & Chem 7: 06/20/19 05:40 06/20/19 05:40 Labs: Laboratory Last Values WBC 13.2 K/mm3 (4.5-11.0) H 06/18/19 05:23 RBC 4.55 M/mm3 (3.65-5.03) 06/18/19 05:23 Hgb 11.2 gm/dl (10.1-14.3) 06/18/19 05:23 Hct 37.1 % (30.3-42.9) 06/18/19 05:23 MCV 82 fl (79-97) 06/18/19 05:23 MCH 25 pg (28-32) L 06/18/19 05:23 MCHC 30 % (30-34) 06/18/19 05:23 RDW 18.3 % (13.2-15.2) H 06/18/19 05:23 Plt Count 81 K/mm3 (140-440) L 06/18/19 05:23 Lymph % (Auto) 13.7 % (13.4-35.0) 06/11/19 18:03 [place]vin % (Auto) 10.3 % (0.0-7.3) H 06/11/19 18:03 Eos % (Auto) 0.8 % (0.0-4.3) 06/11/19 18:03 Baso % (Auto) 0.8 % (0.0-1.8) 06/11/19 18:03 Lymph # 1.1 K/mm3 (1.2-5.4) L 06/11/19 18:03 [place]vin # 0.8 K/mm3 (0.0-0.8) 06/11/19 18:03 Eos # 0.1 K/mm3 (0.0-0.4) 06/11/19 18:03 Baso # 0.1 K/mm3 (0.0-0.1) 06/11/19 18:03 Add Manual Diff Complete 06/18/19 05:23 Total Counted 100 06/18/19 05:23 Seg Neutrophils % Metrology Manager 06/18/19 05:23 Seg Neuts % (Manual) 96.0 % (40.0-70.0) H 06/18/19 05:23 Band Neutrophils % 0 % 06/18/19 05:23 Lymphocytes % (Manual) 4.0 % (13.4-35.0) L 06/18/19 05:23 Reactive Lymphs % (Man) 0 % 06/18/19 05:23 Monocytes % (Manual) 0 % (0.0-7.3) 06/18/19 05:23 Eosinophils % (Manual) 0 % (0.0-4.3) 06/18/19 05:23 Basophils % (Manual) 0 % (0.0-1.8) 06/18/19 05:23 Metamyelocytes % 0 % 06/18/19 05:23 Myelocytes % 0 % 06/18/19 05:23 Promyelocytes % 0 % 06/18/19 05:23 Blast Cells % 0 % 06/18/19 05:23 Nucleated RBC % Not Reportable 06/18/19 05:23 Seg Neutrophils # 6.0 K/mm3 (1.8-7.7) 06/11/19 18:03 Seg Neutrophils # Man 12.7 K/mm3 (1.8-7.7) H 06/18/19 05:23 Band Neutrophils # 0.0 K/mm3 06/18/19 05:23 Lymphocytes # (Manual) 0.5 K/mm3 (1.2-5.4) L 06/18/19 05:23 Abs React Lymphs (Man) 0.0 K/mm3 06/18/19 05:23 Monocytes # (Manual) 0.0 K/mm3 (0.0-0.8) 06/18/19 05:23 Eosinophils # (Manual) 0.0 K/mm3 (0.0-0.4) 06/18/19 05:23 Basophils # (Manual) 0.0 K/mm3 (0.0-0.1) 06/18/19 05:23 Metamyelocytes # 0.0 K/mm3 06/18/19 05:23 Myelocytes # 0.0 K/mm3 06/18/19 05:23 Promyelocytes # 0.0 K/mm3 06/18/19 05:23 Blast Cells # 0.0 K/mm3 06/18/19 05:23 WBC Morphology Not Reportable 06/18/19 05:23 Hypersegmented Neuts Not Reportable 06/18/19 05:23 Hyposegmented Neuts Not Reportable 06/18/19 05:23 Hypogranular Neuts Not Reportable 06/18/19 05:23 Smudge Cells Not Reportable 06/18/19 05:23 Toxic Granulation Not Reportable 06/18/19 05:23 Toxic Vacuolation Not Reportable 06/18/19 05:23 Dohle Bodies Not Reportable 06/18/19 05:23 Pelger-Huet Anomaly Not Reportable 06/18/19 05:23 Neha Rods Not Reportable 06/18/19 05:23 Platelet Estimate Consistent w auto 06/18/19 05:23 Clumped Platelets Not Reportable 06/18/19 05:23 Plt Clumps, EDTA Not Reportable 06/18/19 05:23 Large Platelets Not Reportable 06/18/19 05:23 Giant Platelets Not Reportable 06/18/19 05:23 Platelet Satelliting Not Reportable 06/18/19 05:23 Plt Morphology Comment Not Reportable 06/18/19 05:23 RBC Morphology Not Reportable 06/18/19 05:23 Dimorphic RBCs Not Reportable 06/18/19 05:23 Polychromasia Not Reportable 06/18/19 05:23 Hypochromasia Few 06/18/19 05:23 Poikilocytosis Not Reportable 06/18/19 05:23 Anisocytosis Few 06/18/19 05:23 Microcytosis Not Reportable 06/18/19 05:23 Macrocytosis Not Reportable 06/18/19 05:23 Spherocytes Not Reportable 06/18/19 05:23 Pappenheimer Bodies Not Reportable 06/18/19 05:23 Sickle Cells Not Reportable 06/18/19 05:23 Target Cells Not Reportable 06/18/19 05:23 Tear Drop Cells Not Reportable 06/18/19 05:23 Ovalocytes Not Reportable 06/18/19 05:23 Helmet Cells Not Reportable 06/18/19 05:23 [place] Bodies Not Reportable 06/18/19 05:23 Ozone Rings Not Reportable 06/18/19 05:23 Damien Cells Not Reportable 06/18/19 05:23 Bite Cells Not Reportable 06/18/19 05:23 Crenated Cell Not Reportable 06/18/19 05:23 Elliptocytes Not Reportable 06/18/19 05:23 Acanthocytes (Spur) Not Reportable 06/18/19 05:23 Rouleaux Not Reportable 06/18/19 05:23 Hemoglobin C Crystals Not Reportable 06/18/19 05:23 Schistocytes Few 06/18/19 05:23 Malaria parasites Not Reportable 06/18/19 05:23 Hernan Bodies Not Reportable 06/18/19 05:23 Hem Pathologist Commnt No 06/18/19 05:23 PT 13.0 Sec. (12.2-14.9) 06/11/19 18:03 INR 0.97 (0.87-1.13) 06/11/19 18:03 ABG pH 7.388 pH Units (7.350-7.450) 06/18/19 04:25 ABG pCO2 57.4 mm Hg 06/18/19 04:25 ABG pO2 72.9 mm Hg (80.0-90.0) L 06/18/19 04:25 ABG HCO3 33.8 mmol/L (20.0-26.0) H 06/18/19 04:25 ABG O2 Saturation 94.6 % (95.0-99.0) L 06/18/19 04:25 ABG O2 Content 14.5 (0.0-44) 06/18/19 04:25 ABG Base Excess 7.3 mmol/L (-2.0-3.0) H 06/18/19 04:25 ABG Hemoglobin 11.1 gm/dl (12.0-16.0) L 06/18/19 04:25 ABG Carboxyhemoglobin 1.5 % (0.0-5.0) 06/18/19 04:25 ABG Methemoglobin 0.4 % (0.0-1.5) 06/18/19 04:25 Oxyhemoglobin 92.8 % (95.0-99.0) L 06/18/19 04:25 FiO2 50 % 06/18/19 04:25 Sodium 143 mmol/L (137-145) 06/18/19 05:23 Potassium 4.7 mmol/L (3.6-5.0) 06/18/19 05:23 Chloride 103.2 mmol/L (98-107) 06/18/19 05:23 Carbon Dioxide 34 mmol/L (22-30) H 06/18/19 05:23 Anion Gap 11 mmol/L 06/18/19 05:23 BUN 36 mg/dL (7-17) H 06/18/19 05:23 Creatinine 0.3 mg/dL (0.7-1.2) L 06/18/19 05:23 Estimated GFR > 60 ml/min 06/18/19 05:23 BUN/Creatinine Ratio 120 % 06/18/19 05:23 Glucose 162 mg/dL (65-100) H 06/18/19 05:23 POC Glucose 143 (70-105) H 06/19/19 05:58 Calcium 9.0 mg/dL (8.4-10.2) 06/18/19 05:23 Phosphorus 4.50 mg/dL (2.5-4.5) 06/15/19 05:08 Magnesium 2.20 mg/dL (1.7-2.3) 06/15/19 05:08 Total Bilirubin 0.30 mg/dL (0.1-1.2) 06/11/19 18:03 AST 14 units/L (5-40) 06/11/19 18:03 ALT 8 units/L (7-56) 06/11/19 18:03 Alkaline Phosphatase 85 units/L (35-129) 06/11/19 18:03 Total Creatine Kinase 74 units/L (30-135) 06/12/19 05:09 CK-MB (CK-2) 4.0 ng/mL (0.0-4.0) 06/12/19 05:09 CK-MB (CK-2) Rel Index 5.4 (0-4) H 06/12/19 05:09 Troponin T < 0.010 ng/mL (0.00-0.029) 06/12/19 05:09 Total Protein 6.4 g/dL (6.3-8.2) 06/11/19 18:03 Albumin 3.5 g/dL (3.9-5) L 06/11/19 18:03 Albumin/Globulin Ratio 1.2 % 06/11/19 18:03 Urine Color Yellow (Yellow) 06/12/19 02:04 Urine Turbidity Clear (Clear) 06/12/19 02:04 Urine pH 5.0 (5.0-7.0) 06/12/19 02:04 Ur Specific [place] 1.027 (1.003-1.030) 06/12/19 02:04 Urine Protein 30 mg/dl mg/dL (Negative) 06/12/19 02:04 Urine Glucose (UA) Neg mg/dL (Negative) 06/12/19 02:04 Urine Ketones 80 mg/dL (Negative) 06/12/19 02:04 Urine Blood Lg (Negative) 06/12/19 02:04 Urine Nitrite Neg (Negative) 06/12/19 02:04 Urine Bilirubin Neg (Negative) 06/12/19 02:04 Urine Urobilinogen 2.0 mg/dL (<2.0) 06/12/19 02:04 Ur Leukocyte Esterase Neg (Negative) 06/12/19 02:04 Urine WBC (Auto) 30.0 /HPF (0.0-6.0) H 06/12/19 02:04 Urine RBC (Auto) > 182.0 /HPF (0.0-6.0) 06/12/19 02:04 Urine Bacteria (Auto) 1+ /HPF (Negative) 06/12/19 02:04 Urine Mucus 3+ /HPF 06/12/19 02:04 Urine Yeast (Budding) Few /HPF 06/12/19 02:04 Salicylates 1.0 mg/dL (2.8-20.0) L 06/11/19 18:03 Acetaminophen < 5.0 ug/mL (10.0-30.0) L 06/11/19 18:03 Harley/IV: Voiding Method Indwelling Catheter IV Catheter Type [Left Peripheral IV Antecubital] IV Catheter Type [Right Wrist] Peripheral IV IV Catheter Type [Right Hand] Peripheral IV Active Medications - Current Medications Current Medications: Generic Name Dose Route Start Last Admin Trade Name Freq PRN Reason Stop Dose Admin Acetaminophen 650 mg 06/11/19 22:48 06/19/19 02:02 Tylenol PO 650 mg Q4H PRN Administration Pain MILD(1-3)/Fever >100.5/PRAJAPATI Albuterol 2.5 mg 06/14/19 08:20 Proventil IH Q4HRT PRN Shortness Of Breath Albuterol/Ipratropium 1 ampul 06/14/19 14:00 06/19/19 07:35 Duoneb *Not For Prn Use* IH 1 ampul TIDRT DOMINICK Administration Alprazolam 0.25 mg 06/13/19 10:23 06/13/19 23:32 Xanax PO 0.25 mg Q8H PRN Administration Anxiety Amiodarone HCl 200 mg 06/17/19 10:00 06/18/19 10:44 Cordarone PO 200 mg QDAY DOMINICK Administration Lipase/Protease/Amylase 1 each 06/13/19 17:52 Pancrejohanne Pereira 10,500 Unit FEEDTUBE PRN PRN For Clogged Feeding Tube Arformoterol Tartrate 15 mcg 06/14/19 20:00 06/19/19 07:35 Brovana Nebu IH 15 mcg Q12HRT DOMINICK Administration Budesonide 0.5 mg 06/14/19 20:00 06/19/19 07:35 Pulmicort IH 0.5 mg Q12HRT DOMINICK Administration Dextrose 50 ml 06/11/19 22:48 D50w (25gm) Syringe IV Q30MIN PRN Hypoglycemia Protocol Digoxin 0.125 mg 06/16/19 17:00 06/18/19 17:16 Lanoxin IV 0.125 mg QDAY@1700 DOMINICK Administration Diltiazem HCl 30 mg 06/16/19 11:30 06/19/19 05:03 Cardizem PO Not Given Q8HR DOMINICK Docusate Sodium 100 mg 06/18/19 11:00 06/18/19 21:00 Colace PO 100 mg BID DOMINICK Administration Fentanyl 50 mcg 06/11/19 17:45 06/11/19 20:52 Sublimaze IV 50 mcg Q10MIN PRN Administration ANALGESIA Hydrophilic Ointment 1 applic 06/11/19 17:44 Vaseline Lip Therapy TP Q2HR PRN Dry Lips Fentanyl Citrate 2,000 mcg in 100 mls @ 3.742 mls/hr 06/11/19 18:00 06/18/19 21:01 Fentanyl Drip Premix IV 2 mcg/kg/hr TITR DOMINICK 7.484 mls/hr Titration Protocol 1 MCG/KG/HR Lorazepam 100 mg/ Sodium 100 mls @ 1 mls/hr 06/11/19 18:00 06/14/19 22:15 Chloride/ Miscellaneous IV 0 mg/hr Information TITR DOMINICK 0 mls/hr Titration Protocol 1 MG/HR Cefepime HCl 1 gm in 100 mls @ 200 mls/hr 06/14/19 14:00 06/19/19 05:03 Cefepime/Ns 1 Gm/100 Ml IV 06/19/19 13:59 Not Given Q8HR DOMINICK Protocol Sodium Chloride 500 mls @ 5 mls/hr 06/18/19 04:00 06/17/19 23:30 Nacl 0.9% 500 Ml IV 5 mls/hr DIRECT DOMINICK Administration Vancomycin HCl 1,250 mg/ 275 mls @ 166.667 mls/hr 06/19/19 10:00 Sodium Chloride IV 06/19/19 11:38 ONCE ONE Insulin Human Lispro 0 unit 06/12/19 00:00 06/19/19 06:08 Humalog SUB-Q Not Given Q6HR DOMINICK Protocol Lansoprazole 30 mg 06/13/19 11:00 06/18/19 10:45 Prevacid Solutab FEEDTUBE 30 mg QDAY DOMINICK Administration Methylprednisolone Sodium Succinate 60 mg 06/17/19 12:00 06/19/19 05:04 Solu-Medrol IV Not Given Q6HR DOMINICK Multi-Ingred Cream/Lotion/Oil/Oint 1 applic 06/11/19 17:44 Artificial Tears Ophth Oint OU Q4HR PRN Dry Eye(s) Ondansetron HCl 4 mg 06/11/19 22:48 Zofran IV Q8H PRN Nausea And Vomiting Quetiapine Fumarate 300 mg 06/13/19 11:00 06/18/19 21:00 Seroquel PO 300 mg BID DOMINICK Administration Simple Syrup 15 ml 06/13/19 17:52 Simple Syrup FEEDTUBE PRN PRN Hypoglycemia Simple Syrup 30 ml 06/13/19 17:52 Simple Syrup FEEDTUBE PRN PRN Hypoglycemia Sodium Bicarbonate 325 mg 06/13/19 17:52 Sodium Bicarbonate FEEDTUBE PRN PRN For Clogged Feeding Tube Sodium Chloride 10 ml 06/12/19 10:00 06/19/19 03:08 Sodium Chloride Flush Syringe 10 Ml IV Not Given BID DOMINICK Sodium Chloride 10 ml 06/11/19 22:48 06/18/19 21:06 Sodium Chloride Flush Syringe 10 Ml IV 10 ml PRN PRN Administration LINE FLUSH Venlafaxine HCl 75 mg 06/13/19 14:00 06/18/19 21:01 Effexor PO 75 mg TID DOMINICK Administration Nutrition/Malnutrition Assess - Dietary Evaluation Nutrition/Malnutrition Findings: Nutrition Notes Start: 06/12/19 11:05 Freq: Status: Active Protocol: Document 06/16/19 13:28 LM (Rec: 06/16/19 13:45 LM [id number]) Nutrition Notes Initial or Follow up Reassessment Current Diagnosis COPD,Coronary Artery Disease, Hypertension,Heart Failure, Respiratory Failure Other Pertinent Diagnosis COPD exacerbation Current Diet Promote 1.0 at 60ml/hr Labs/Tests BG 165 Na 144 Pertinent Medications Humalog Solumedrol Height 5 ft Weight 74.843 kg [place] Body Weight (kg) 45.45 BMI 32.2 Weight Status Obese Subjective/Other Information Promote running at goal. Na in normal range. Percent of energy/protein needs met: 97%/99% Burn Absent Trauma Absent Current % PO Negligible Minimum of two criteria No #1 Nutrition Diagnosis Inadequate oral intake Diagnosis Progress(for reassessment Continues documentation) Is patient on ventilator? Yes Is Patient Ambulatory and/or Out of Bed No REE-([facility]-confined to bed) 9768.270 Calculation Used for Recommendations [facility] Additional Notes Pro needs 2g/kg IBW: 91g/day 1ml/kcal Nutrition Intervention Change Diet Order: Continue TF Nutrition Support: Promote 1.0 at 60ml/hr Flush 150 q4h for hypernatremia Flush 50ml q4h once resolved Kcal 1,440 Protein (gm) 90 Fluid (mL) 1,208 Goal #1 TF tolerance Goal #2 Meet at least 75% of energy and protein needs Anticipated Discharge Needs: Unable to identify at this time Follow-Up By: 06/21/19 Additional Comments F/U for TF tolerance
[2019-06-19] MEDS ORDERED: VANCOMYCIN 1,250 MG in SODIUM CHLORIDE 0.9% 250ML 250 ML IV ONE (10:00)
[2019-06-19] MEDS: QUEtiapine 100 MG TAB PO SCH ×2 (10:02→21:08)
[2019-06-19] MEDS: VENLAFAXINE 75 MG TAB PO SCH ×3 (10:02→21:09)
[2019-06-19] MEDS: DOCUSATE SODIUM 100 MG/10 ML ORAL LIQD PO SCH ×2 (10:03→21:08)
[2019-06-19] MEDS: LANSOPRAZOLE 30 MG SOLUTAB FEEDTUBE SCH (10:03)
[2019-06-19] MEDS: AMIODARONE 200 MG TAB PO SCH (10:03)
[2019-06-19] MEDS: fentaNYL DRIP Premix 2,000 MCG/100 ML BAG IV SCH ×2 (10:13→22:31)
[2019-06-19] MEDS ORDERED: METOPROLOL TARTRATE 5 MG/5 ML INJ IV PRN (11:11)
--- NOTE | 2019-06-19 11:11 | Progress Note ---
Assessment and Plan - Patient Problems (1) Paroxysmal atrial flutter Current Visit: Yes Status: Acute Plan to address problem: The patient is on Cardizem, digoxin and beta-blockers as tolerated for paroxysmal atrial tachyarrhythmias. We will check a digoxin level with next labs. Subjective Date of service: 06/19/19 Principal diagnosis: Ac and ch hypoxic & hypercapnic resp failure; AE-COPD; Tobacco use disorder Interval history: Patient is sedated, on the vent. Heart rate is 129, sinus tachycardia. Blood pressure is 112/58. Objective Vital Signs Temp Pulse Pulse Pulse Pulse Pulse Resp 06/19/19 11:00 133 H 24 06/19/19 10:46 130 H 20 06/19/19 10:30 131 H 21 06/19/19 10:16 136 H 19 06/19/19 10:00 152 H 16 06/19/19 09:46 146 H 22 06/19/19 09:30 121 H 19 06/19/19 09:16 118 H 20 06/19/19 09:00 117 H 19 06/19/19 08:46 114 H 19 06/19/19 08:30 113 H 17 06/19/19 08:16 105 H 15 06/19/19 08:00 101.5 F H 110 H 18 06/19/19 07:46 110 H 16 06/19/19 07:35 110 H 115 H 06/19/19 07:30 110 H 16 06/19/19 07:16 111 H 17 06/19/19 07:00 111 H 16 06/19/19 06:46 109 H 18 06/19/19 06:30 110 H 17 06/19/19 06:16 111 H 18 06/19/19 06:00 110 H 18 06/19/19 05:46 110 H 22 06/19/19 05:30 115 H 16 06/19/19 05:17 113 H 06/19/19 05:16 113 H 18 06/19/19 05:00 117 H 18 06/19/19 04:46 125 H 19 06/19/19 04:30 117 H 15 06/19/19 04:16 117 H 17 06/19/19 04:00 101.4 F H 119 H 123 H 123 H 123 H 18 06/19/19 03:46 118 H 19 05/02/20 03:30 118 H 17 06/19/19 03:16 118 H 18 06/19/19 03:00 118 H 06/19/19 02:46 119 H 17 06/19/19 02:30 118 H 15 06/19/19 02:16 120 H 18 06/19/19 02:00 101.3 F H 123 H 20 06/19/19 01:46 124 H 06/19/19 01:30 124 H 06/19/19 01:16 121 H 20 06/19/19 01:00 115 H 06/19/19 00:50 110 H 06/19/19 00:46 109 H 06/19/19 00:30 110 H 06/19/19 00:16 112 H 06/19/19 00:00 100.8 F H 115 H 25 H 06/18/19 23:58 116 H 06/18/19 23:56 123 H 123 H 123 H 06/18/19 23:46 115 H 06/18/19 23:30 115 H 06/18/19 23:23 117 H 06/18/19 23:16 116 H 06/18/19 23:00 117 H 18 06/18/19 22:46 119 H 06/18/19 22:30 121 H 06/18/19 22:16 124 H 06/18/19 22:00 127 H 06/18/19 21:55 126 H 06/18/19 21:46 127 H 06/18/19 21:38 126 H 06/18/19 21:30 100 F H 130 H 06/18/19 21:16 120 H 06/18/19 21:00 120 H 06/18/19 20:46 121 H 06/18/19 20:30 123 H 06/18/19 20:16 123 H 18 06/18/19 20:00 101.6 F H 123 H 124 H 124 H 124 H 06/18/19 19:46 122 H 06/18/19 19:30 121 H 06/18/19 19:16 122 H 18 06/18/19 19:00 125 H 18 06/18/19 18:46 122 H 06/18/19 18:30 123 H 18 06/18/19 18:16 123 H 19 06/18/19 18:00 124 H 18 06/18/19 17:46 124 H 20 06/18/19 17:38 124 H 06/18/19 17:30 124 H 19 06/18/19 17:16 124 H 19 06/18/19 17:00 123 H 18 06/18/19 16:46 123 H 18 06/18/19 16:30 123 H 18 06/18/19 16:16 124 H 18 06/18/19 16:00 98.4 F 124 H 124 H 19 06/18/19 15:46 124 H 15 06/18/19 15:30 124 H 16 06/18/19 15:16 120 H 15 06/18/19 15:04 120 H 06/18/19 15:00 119 H 14 06/18/19 14:46 118 H 15 06/18/19 14:35 114 H 06/18/19 14:30 116 H 17 06/18/19 14:16 118 H 15 06/18/19 14:00 118 H 18 06/18/19 13:46 119 H 19 06/18/19 13:30 118 H 17 06/18/19 13:16 119 H 13 06/18/19 13:00 122 H 14 06/18/19 12:46 127 H 19 06/18/19 12:30 126 H 16 06/18/19 12:16 127 H 18 06/18/19 12:00 99.2 F 130 H 130 H 102 H 22 06/18/19 11:46 131 H 15 06/18/19 11:30 133 H 15 06/18/19 11:16 150 H 15 Resp BP Pulse Ox 06/19/19 11:00 112/58 92 06/19/19 10:46 112/58 92 06/19/19 10:30 112/58 93 06/19/19 10:16 125/68 93 06/19/19 10:00 125/68 89 06/19/19 09:46 125/68 92 06/19/19 09:30 125/68 94 06/19/19 09:16 125/68 93 06/19/19 09:00 111/71 94 06/19/19 08:46 111/71 94 06/19/19 08:30 111/71 93 06/19/19 08:16 111/71 89 05/02 08:00 111/71 90 05/0220 07:46 130/70 92 05/0220 07:35 16 130/70 92 05/0220 07:30 130/70 92 05/0220 07:16 130/70 91 050220 07:00 115/64 92 05/20 06:46 115/64 91 050220 06:30 115/64 90 05/02 06:16 115/64 91 05 06:00 115/64 88 05/0220 05:46 129/67 88 05 05:30 129/67 93 0502 05:17 129/67 94 0502 05:16 129/67 94 05 05:00 131/72 94 0502 04:46 131/72 94 05 04:30 131/72 95 0502 04:16 131/72 95 0502 04:00 131/72 94 0502 03:46 130/67 95 050220 03:30 130/67 94 0502 03:16 130/67 94 0502 03:00 130/67 94 0502 02:46 127/69 95 050220 02:30 127/69 95 050220 02:16 127/69 94 05 02:00 128/69 94 050220 01:46 128/69 94 050220 01:30 128/69 95 050220 01:16 128/69 95 050220 01:00 128/69 94 0502 00:50 124/62 92 05/0220 00:46 114/65 92 050220 00:30 114/65 92 050220 00:16 114/65 93 050220 00:00 124/62 92 05/20 23:58 114/65 91 05 23:56 05 23:46 114/65 91 05 23:30 114/65 91 05 23:23 114/65 91 05 23:16 114/65 91 05/20 23:00 114/65 90 05/20 22:46 115/61 91 0520 22:30 115/61 90 0520 22:16 115/61 90 0520 22:00 139/77 91 0520 21:55 18 05 21:46 139/77 95 05/20 21:38 139/77 95 0520 21:30 139/77 95 0520 21:16 139/77 95 0520 21:00 142/76 95 05/20 20:46 142/76 95 05/20 20:30 142/76 95 0520 20:16 142/76 94 05 20:00 142/73 94 0520 19:46 142/73 94 05 19:30 142/73 94 0520 19:16 142/73 95 05 19:00 132/70 95 05 18:46 132/70 95 0520 18:30 132/70 95 05 18:16 132/70 95 0520 18:00 132/70 96 05 17:46 122/62 95 0520 17:38 122/62 95 0520 17:30 122/62 95 05 17:16 122/62 96 0520 17:00 118/70 96 05 16:46 118/70 96 0520 16:30 118/70 98 0520 16:16 118/70 97 0520 16:00 101/53 96 0520 15:46 101/53 100 05/20 15:30 101/53 99 05 15:16 101/53 98 05 15:04 16 05 15:00 101/53 92 05 14:46 96/59 87 05 14:35 96/59 94 05/20 14:30 96/59 90 05 14:16 96/59 93 05 14:00 96/59 94 05 13:46 103/55 95 06/18/19 13:30 103/55 95 06/18/19 13:16 103/55 97 06/18/19 13:00 103/55 94 06/18/19 12:46 107/55 93 06/18/19 12:30 107/55 92 06/18/19 12:16 107/55 93 06/18/19 12:00 107/55 92 06/18/19 11:46 111/62 92 06/18/19 11:30 111/62 93 06/18/19 11:16 111/62 93 - Physical Examination Narrative exam: Full physical exam is deferred due to coronavirus status. General: Other (intubated on the vent) HEENT: Positive: Other (intubated) - Imaging and Cardiology EKG: image reviewed
--- NOTE | 2019-06-19 12:09 | Consultation ---
History of Present Illness - Reason for Consult Consult date: 06/19/19 - History of Present Illness 59-year-old female past medical history GERD, tobacco abuse, COPD, CAD admitted to the hospital with COPD exacerbation. She was also admitted a few days prior to this current admission with the same thing, and at that time there is no concern for COVID-19. During that admission the patient eloped without notifying the staff. She was brought back to the hospital with AMS and acute respiratory failure. Patient is currently intubated/history of pain from the chart. Febrile to 101.5, was previously afebrile from admission. Currently receiving vancomycin and cefepime. White count of 13 with an associated lymphopenia. Previous urine culture on 424 growing pansensitive Pseudomonas, blood cultures from that time are negative. Imaging personally reviewed: Chest x-ray: Left basilar effusion, previous x-rays with bibasilar opacities Past History Past Medical History: arrhythmia (SVT now resolved), CAD, COPD Social history: smoking Medications and Allergies Allergies Allergy/AdvReac Type Severity Reaction Status Date / Time hydromorphone [From Dilaudid] Allergy Unknown Verified 09/28/18 21:25 phenobarbital Allergy Unknown Verified 09/28/18 21:25 Home Medications Medication Instructions Recorded Confirmed Last Taken Type Albuterol Sulfate [Proair 90 mcg IH Q4H PRN #1 pump 09/21/18 06/12/19 Unknown Rx Respiclick] Metoprolol [Lopressor TAB] 12.5 mg PO BID #60 tablet 11/27/18 06/12/19 06/09/19 Rx Nicotine [Habitrol] 14 mg TD QDAY #30 patch 11/27/18 06/12/19 Unknown Rx ALBUTEROL NEB's [Proventil 0.083% 2.5 mg IH Q4HRT PRN #15 nebu 03/05/19 06/12/19 Unknown Rx NEBS] ALPRAZolam [Xanax TAB] 0.25 mg PO Q8H PRN #15 tablet 03/05/19 06/12/19 Unknown Rx Acetaminophen [Acetaminophen TAB] 650 mg PO Q4H PRN tablet 03/05/19 06/12/19 Unknown Rx Arformoterol Nebu [Brovana Nebu] 15 mcg IH Q12HRT #30 ml 03/05/19 06/12/19 Unknown Rx Baclofen [Lioresal] 10 mg PO BID tablet 03/05/19 06/12/19 Unknown Rx Budesonide [Pulmicort Respules] 0.5 mg IH Q12HRT #30 nebu 03/05/19 06/12/19 Unknown Rx HYDROcodone/APAP 5-325 [Enigma 1 each PO BID PRN #15 tablet 03/05/19 06/12/19 06/09/19 Rx 5-325 mg TAB] Lansoprazole Solutab [Prevacid 30 mg FEEDTUBE QDAY #30 tab.rapdis 03/05/19 06/12/19 Unknown Rx Solutab] Nitroglycerin [Nitrostat] 0.4 mg SL Q5M PRN #30 tab 03/05/19 06/12/19 Unknown Rx Potassium Chloride [K-Dur] 10 meq PO QDAY #30 tablet 03/05/19 06/12/19 Unknown Rx QUEtiapine [SEROquel] 300 mg PO BID tablet 03/05/19 06/12/19 06/09/19 Rx Venlafaxine [Effexor 25mg tab] 25 mg PO TID #90 tablet 03/05/19 06/12/19 06/09/19 Rx Venlafaxine [Effexor] 75 mg PO TID #90 tablet 03/05/19 06/12/19 06/02/19 Rx busPIRone [Buspar] 5 mg PO BID #60 tablet 03/05/19 06/12/19 06/09/19 Rx predniSONE [Deltasone] 40 mg PO QDAY #30 tablet 03/05/19 06/12/19 Unknown Rx Lisinopril [Zestril] 10 mg PO DAILY 06/10/19 06/12/19 Unknown History amLODIPine 5 mg PO DAILY 06/10/19 06/12/19 04/12/19 History Active Meds: Active Medications Acetaminophen (Tylenol) 650 mg PO Q4H PRN PRN Reason: Pain MILD(1-3)/Fever >100.5/PRAJAPATI Last Admin: 06/19/19 10:03 Dose: 650 mg Documented by: Albuterol (Proventil) 2.5 mg IH Q4HRT PRN PRN Reason: Shortness Of Breath Albuterol/Ipratropium (Duoneb *Not For Prn Use*) 1 ampul IH TIDRT [facility] Last Admin: 06/19/19 07:35 Dose: 1 ampul Documented by: Alprazolam (Xanax) 0.25 mg PO Q8H PRN PRN Reason: Anxiety Last Admin: 06/13/19 23:32 Dose: 0.25 mg Documented by: Amiodarone HCl (Cordarone) 200 mg PO QDAY [facility] Last Admin: 06/19/19 10:03 Dose: 200 mg Documented by: Lipase/Protease/Amylase (Pancreaze Dr 10,500 Unit) 1 each FEEDTUBE PRN PRN PRN Reason: For Clogged Feeding Tube Arformoterol Tartrate (Brovana Nebu) 15 mcg IH Q12HRT [facility] Last Admin: 06/19/19 07:35 Dose: 15 mcg Documented by: Budesonide (Pulmicort) 0.5 mg IH Q12HRT [facility] Last Admin: 06/19/19 07:35 Dose: 0.5 mg Documented by: Dextrose (D50w (25gm) Syringe) 50 ml IV Q30MIN PRN; Protocol PRN Reason: Hypoglycemia Digoxin (Lanoxin) 0.125 mg IV QDAY@1700 [facility] Last Admin: 06/18/19 17:16 Dose: 0.125 mg Documented by: Diltiazem HCl (Cardizem) 30 mg PO Q8HR [facility] Last Admin: 06/19/19 05:03 Dose: Not Given Documented by: Docusate Sodium (Colace) 100 mg PO BID [facility] Last Admin: 06/19/19 10:03 Dose: 100 mg Documented by: Fentanyl (Sublimaze) 50 mcg IV Q10MIN PRN PRN Reason: ANALGESIA Last Admin: 06/11/19 20:52 Dose: 50 mcg Documented by: Hydrophilic Ointment (Vaseline Lip Therapy) 1 applic TP Q2HR PRN PRN Reason: Dry Lips Fentanyl Citrate (Fentanyl Drip Premix) 2,000 mcg in 100 mls @ 3.742 mls/hr IV TITR [facility]; Protocol Last Admin: 06/19/19 10:13 Dose: 2 mcg/kg/hr, 7.484 mls/hr Documented by: Lorazepam 100 mg/ Sodium Chloride/ Miscellaneous Information 100 mls @ 1 mls/hr IV TITR [facility]; Protocol Last Titration: 06/14/19 22:15 Dose: 0 mg/hr, 0 mls/hr Documented by: Cefepime HCl (Cefepime/Ns 1 Gm/100 Ml) 1 gm in 100 mls @ 200 mls/hr IV Q8HR [facility]; Protocol Stop: 06/19/19 13:59 Last Admin: 06/19/19 05:03 Dose: Not Given Documented by: Sodium Chloride (Nacl 0.9% 500 Ml) 500 mls @ 5 mls/hr IV DIRECT [facility] Last Admin: 06/17/19 23:30 Dose: 5 mls/hr Documented by: Insulin Human Lispro (Humalog) 0 unit SUB-Q Q6HR [facility]; Protocol Last Admin: 06/19/19 06:08 Dose: Not Given Documented by: Lansoprazole (Prevacid Solutab) 30 mg FEEDTUBE QDAY [facility] Last Admin: 06/19/19 10:03 Dose: 30 mg Documented by: Methylprednisolone Sodium Succinate (Solu-Medrol) 60 mg IV Q6HR [facility] Last Admin: 06/19/19 11:49 Dose: 60 mg Documented by: Metoprolol Tartrate (Metoprolol) 2.5 mg IV Q4H PRN PRN Reason: HR>130 Last Admin: 06/19/19 11:48 Dose: 2.5 mg Documented by: Multi-Ingred Cream/Lotion/Oil/Oint (Artificial Tears Ophth Oint) 1 applic OU Q4HR PRN PRN Reason: Dry Eye(s) Ondansetron HCl (Zofran) 4 mg IV Q8H PRN PRN Reason: Nausea And Vomiting Quetiapine Fumarate (Seroquel) 300 mg PO BID [facility] Last Admin: 06/19/19 10:02 Dose: 300 mg Documented by: Simple Syrup (Simple Syrup) 15 ml FEEDTUBE PRN PRN PRN Reason: Hypoglycemia Simple Syrup (Simple Syrup) 30 ml FEEDTUBE PRN PRN PRN Reason: Hypoglycemia Sodium Bicarbonate (Sodium Bicarbonate) 325 mg FEEDTUBE PRN PRN PRN Reason: For Clogged Feeding Tube Sodium Chloride (Sodium Chloride Flush Syringe 10 Ml) 10 ml IV BID [facility] Last Admin: 06/19/19 10:03 Dose: 10 ml Documented by: Sodium Chloride (Sodium Chloride Flush Syringe 10 Ml) 10 ml IV PRN PRN PRN Reason: LINE FLUSH Last Admin: 06/18/19 21:06 Dose: 10 ml Documented by: Venlafaxine HCl (Effexor) 75 mg PO TID DOMINICK Last Admin: 06/19/19 10:02 Dose: 75 mg Documented by: Review of Systems ROS unobtainable: due to endotracheal tube Physical Examination - Physical Exam Narrative exam: Physical Exam: Constitutional: Intubated Head, Ears, Nose: Normocephalic, atraumatic. External ears, nose normal Eyes: Conjunctivae/corneas clear. No icterus. No ptosis. Neck: Intubated Oral: Intubated Cardiovascular: S1, S2 normal. Respiratory: Good air entry, clear to auscultation bilaterally GI: Soft, non-tender; bowel sounds normal. No peritoneal signs. Musculoskeletal: No pedal edema, no cyanosis. Skin: No rash or abscess Hem/Lymphatic: No palpable cervical or supraclavicular nodes. No lymphangitis Psych: Sedated Neurological: Sedated - Constitutional Vitals: Vital Signs Temp Pulse Resp BP Pulse Ox 101.5 F H 140 H 24 118/64 92 06/19/19 08:00 06/19/19 11:48 06/19/19 11:00 06/19/19 11:48 06/19/19 11:00 Temperature -Last 24 Hours Temperature 101.5 F Temperature 101.4 F Temperature 101.3 F Temperature 100.8 F Temperature 100 F Temperature 101.6 F Temperature 98.4 F Results - Labs CBC & Chem 7: 06/18/19 05:23 06/18/19 05:23 Labs: Abnormal lab results 06/18/19 06/18/19 06/18/19 Range/Units 12:26 18:17 23:51 POC Glucose 156 H 134 H 153 H (70-105) 06/19/19 Range/Units 05:58 POC Glucose 143 H (70-105) Assessment and Plan Cultures: Blood culture 06/11/2019 no growth Sputum culture 06/11/2019 pansensitive Pseudomonas A/P: 59-year-old female past medical history GERD, tobacco abuse, COPD, CAD admitted to the hospital with COPD exacerbation admitted with acute hypoxic respiratory failure #Acute hypoxic respiratory failure: Given her high fevers and previous bibasilar infiltrates, I am concerned for COVID-19. I have ordered the coronavirus test and will follow up. Place patient on isolation precautions pending test results, which hopefully should not take long. Agree with current management of vancomycin and cefepime. Repeat blood and urine cultures were already ordered, and I ordered repeat sputum culture. She may need broadening of antibiotics if COVID-19 is negative. #COPD: High risk of respiratory failure as above. #Tobacco abuse Recs: -I have ordered COVID-19 test, please collect and follow-up results -COVID-19 precautions -Continue vancomycin and cefepime empirically pending new cultures -Follow-up repeat urine, sputum, blood cultures Thank you for the consult, we will continue to follow. Shukri Malone MD [facility] M: [phone] O: [phone] F: [phone]
[2019-06-19 13:07] LABS: Bacteria,Urine 1+ /HPF (Negative); Bilirubin,Urine NEG (Negative); Blood,Urine SM (Negative); Color,Urine Yellow (Yellow); Hyaline Casts,Urine 15 /LPF; Mucus,Urine FEW /HPF; Urobilinogen,Urine < 2.0 mg/dL (<2.0)
--- NOTE | 2019-06-19 13:30 | Progress Note ---
Assessment and Plan Acute and chronic hypoxic and hypercapnic respiratory failure: Acute exacerbation of COPD Tobacco use disorder/Nicotine dependence (on going) Hypernatremia History of coronary artery disease/CHF History of HTN Chronic narcotic dependence Chronic back pain Anxiety disorder History of depression; Obesity; BMI 32.2 - begin airborne, droplet and contact isolation - will limiot daily CXR's - continue amiodarone - further rate control per cardiology - continue supplemental oxygen with restrictive strategies acutely re: severe COPD (PaO2 of 60 with O2 sats 88-90% is acceptable) - VAP bundle addressed (aspiration precautions; HOB > 40 degrees) - Daily SAT and SBT assessment as tolerated - continue bronchodilators with pulmonary hygiene per RT - Avoid benzodiazepine's, reduce the possibility of delirium - Continue with fentanyl, titrate for RASS of 0 to -1 - Maintenance of sleep-wake cycle, avoid delirium - continue enteral nutritional support at goal rate as tolerated - Accuchecks with glycemic control per SSI for target blood glucose of 140-180 mg/dL while critically ill; avoid hypoglycemia - VTE prophylaxis (Lovenox) - Stress ulcer prophylaxis (Prevacid) - continue systemic Steroids - Empiric Antibiotics (Cefepime); de-escalate per ID rec's - Monitor hemodynamics closely - Avoid delirium; Avoid benzodiazepines - Nicotine withdrawal precautions, nicotine patch - In view of ongoing smoking, recurrent hospital admission, will need to re- address advance directives and goals of care, once the patient is able to be a part of that discussion. Will also address smoking cessation again, once she is able to be a part of that discussion - continue other care per attending / other marketing consultant's .... re-evaluate in am & prn CONDITION: CRITICAL PROGNOSIS: GUARDED CODE STATUS: FULL CODE The high probability of a clinically significant, sudden or life-threatening deterioration of the respiratory, cardiovascular, neurology, endocrine system(s) required my full and direct attention, intervention and personal management. The aggregate critical care time was [34] minutes without overlap. Time includes spent on; [x] Data Review and interpretation [x] Patient assessment and monitoring of vital signs [x] Documentation [x] Medication orders and management Subjective Date of service: 06/19/19 Principal diagnosis: Ac and ch hypoxic & hypercapnic resp failure; AE-COPD; Tobacco use disorder Interval history: Patient is seen today for: Ac and ch hypoxic hypercapnic resp failure; AE-COPD; Tobacco use disorder/Nicotine dependence; Hypernatremia; HTN (hypotensive at presentation 0; Chronic narcotic dependence ; Chronic back pain; Anxiety disorder Seen and examined at bedside; 24-hour events reviewed; nursing and respiratory care staff consulted; no adverse overnight events reported to me; laying in bed; remains on MVS; developed fevers and now on isolation with COVID-19 test ordered; no N/V/F/C Objective Vital Signs - 12hr 06/19/19 06/19/19 06/19/19 01:46 02:00 02:16 Temperature 101.3 F H Pulse Rate 124 H 123 H 120 H Pulse Rate [ Bilateral] Pulse Rate [ Dorsalis Pedis] Pulse Rate [ From Monitor] Pulse Rate [ Radial] Respiratory 19 20 18 Rate Respiratory Rate [Bilateral ] Blood Pressure 128/69 128/69 127/69 O2 Sat by Pulse 94 94 94 Oximetry 06/19/19 06/19/19 06/19/19 02:30 02:46 03:00 Temperature Pulse Rate 118 H 119 H 118 H Pulse Rate [ Bilateral] Pulse Rate [ Dorsalis Pedis] Pulse Rate [ From Monitor] Pulse Rate [ Radial] Respiratory 15 17 19 Rate Respiratory Rate [Bilateral ] Blood Pressure 127/69 127/69 130/67 O2 Sat by Pulse 95 95 94 Oximetry 06/19/19 06/19/19 06/19/19 03:16 03:30 03:46 Temperature Pulse Rate 118 H 118 H 118 H Pulse Rate [ Bilateral] Pulse Rate [ Dorsalis Pedis] Pulse Rate [ From Monitor] Pulse Rate [ Radial] Respiratory 18 17 19 Rate Respiratory Rate [Bilateral ] Blood Pressure 130/67 130/67 130/67 O2 Sat by Pulse 94 94 95 Oximetry 06/19/19 06/19/19 06/19/19 04:00 04:16 04:30 Temperature 101.4 F H Pulse Rate 119 H 117 H 117 H Pulse Rate [ Bilateral] Pulse Rate [ 123 H Dorsalis Pedis] Pulse Rate [ 123 H From Monitor] Pulse Rate [ 123 H Radial] Respiratory 18 17 15 Rate Respiratory Rate [Bilateral ] Blood Pressure 131/72 131/72 131/72 O2 Sat by Pulse 94 95 95 Oximetry 06/19/19 06/19/19 06/19/19 04:46 05:00 05:16 Temperature Pulse Rate 125 H 117 H 113 H Pulse Rate [ Bilateral] Pulse Rate [ Dorsalis Pedis] Pulse Rate [ From Monitor] Pulse Rate [ Radial] Respiratory 19 18 18 Rate Respiratory Rate [Bilateral ] Blood Pressure 131/72 131/72 129/67 O2 Sat by Pulse 94 94 94 Oximetry 06/19/19 06/19/19 06/19/19 05:17 05:30 05:46 Temperature Pulse Rate 113 H 115 H 110 H Pulse Rate [ Bilateral] Pulse Rate [ Dorsalis Pedis] Pulse Rate [ From Monitor] Pulse Rate [ Radial] Respiratory 16 22 Rate Respiratory Rate [Bilateral ] Blood Pressure 129/67 129/67 129/67 O2 Sat by Pulse 94 93 88 Oximetry 06/19/19 06/19/19 06/19/19 06:00 06:16 06:30 Temperature Pulse Rate 110 H 111 H 110 H Pulse Rate [ Bilateral] Pulse Rate [ Dorsalis Pedis] Pulse Rate [ From Monitor] Pulse Rate [ Radial] Respiratory 18 18 17 Rate Respiratory Rate [Bilateral ] Blood Pressure 115/64 115/64 115/64 O2 Sat by Pulse 88 91 90 Oximetry 06/19/19 06/19/19 06/19/19 06:46 07:00 07:16 Temperature Pulse Rate 109 H 111 H 111 H Pulse Rate [ Bilateral] Pulse Rate [ Dorsalis Pedis] Pulse Rate [ From Monitor] Pulse Rate [ Radial] Respiratory 18 16 17 Rate Respiratory Rate [Bilateral ] Blood Pressure 115/64 115/64 130/70 O2 Sat by Pulse 91 92 91 Oximetry 06/19/19 06/19/19 06/19/19 07:30 07:35 07:46 Temperature Pulse Rate 110 H 110 H 110 H Pulse Rate [ 115 H Bilateral] Pulse Rate [ Dorsalis Pedis] Pulse Rate [ From Monitor] Pulse Rate [ Radial] Respiratory 16 16 Rate Respiratory 16 Rate [Bilateral ] Blood Pressure 130/70 130/70 130/70 O2 Sat by Pulse 92 92 92 Oximetry 06/19/19 06/19/19 06/19/19 08:00 08:16 08:30 Temperature 101.5 F H Pulse Rate 110 H 105 H 113 H Pulse Rate [ Bilateral] Pulse Rate [ Dorsalis Pedis] Pulse Rate [ From Monitor] Pulse Rate [ Radial] Respiratory 18 15 17 Rate Respiratory Rate [Bilateral ] Blood Pressure 111/71 111/71 111/71 O2 Sat by Pulse 90 89 93 Oximetry 06/19/19 06/19/19 06/19/19 08:46 09:00 09:16 Temperature Pulse Rate 114 H 117 H 118 H Pulse Rate [ Bilateral] Pulse Rate [ Dorsalis Pedis] Pulse Rate [ From Monitor] Pulse Rate [ Radial] Respiratory 19 19 20 Rate Respiratory Rate [Bilateral ] Blood Pressure 111/71 111/71 125/68 O2 Sat by Pulse 94 94 93 Oximetry 06/19/19 06/19/19 06/19/19 09:30 09:46 10:00 Temperature Pulse Rate 121 H 146 H 152 H Pulse Rate [ Bilateral] Pulse Rate [ Dorsalis Pedis] Pulse Rate [ From Monitor] Pulse Rate [ Radial] Respiratory 19 22 16 Rate Respiratory Rate [Bilateral ] Blood Pressure 125/68 125/68 125/68 O2 Sat by Pulse 94 92 89 Oximetry 06/19/19 06/19/19 06/19/19 10:16 10:30 10:46 Temperature Pulse Rate 136 H 131 H 130 H Pulse Rate [ Bilateral] Pulse Rate [ Dorsalis Pedis] Pulse Rate [ From Monitor] Pulse Rate [ Radial] Respiratory 19 21 20 Rate Respiratory Rate [Bilateral ] Blood Pressure 125/68 112/58 112/58 O2 Sat by Pulse 93 93 92 Oximetry 06/19/19 06/19/19 06/19/19 11:00 11:16 11:30 Temperature Pulse Rate 133 H 131 H 132 H Pulse Rate [ Bilateral] Pulse Rate [ Dorsalis Pedis] Pulse Rate [ From Monitor] Pulse Rate [ Radial] Respiratory 24 20 22 Rate Respiratory Rate [Bilateral ] Blood Pressure 112/58 118/64 118/64 O2 Sat by Pulse 92 92 92 Oximetry 06/19/19 06/19/19 06/19/19 11:46 11:48 12:00 Temperature Pulse Rate 129 H 140 H 133 H Pulse Rate [ Bilateral] Pulse Rate [ Dorsalis Pedis] Pulse Rate [ From Monitor] Pulse Rate [ Radial] Respiratory 19 22 Rate Respiratory Rate [Bilateral ] Blood Pressure 118/64 118/64 118/64 O2 Sat by Pulse 92 91 Oximetry 06/19/19 06/19/19 06/19/19 12:16 12:30 12:46 Temperature Pulse Rate 130 H 111 H 114 H Pulse Rate [ Bilateral] Pulse Rate [ Dorsalis Pedis] Pulse Rate [ From Monitor] Pulse Rate [ Radial] Respiratory 21 19 20 Rate Respiratory Rate [Bilateral ] Blood Pressure 145/65 145/65 145/65 O2 Sat by Pulse 92 92 92 Oximetry 06/19/19 06/19/19 13:00 13:16 Temperature Pulse Rate 115 H 115 H Pulse Rate [ Bilateral] Pulse Rate [ Dorsalis Pedis] Pulse Rate [ From Monitor] Pulse Rate [ Radial] Respiratory 21 20 Rate Respiratory Rate [Bilateral ] Blood Pressure 145/65 119/63 O2 Sat by Pulse 93 93 Oximetry Constitutional: no acute distress, other (elderly looking obese CF, normocephalic on MVS without signidficant dyssynchrony) Eyes: non-icteric ENT: oropharynx moist, other (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) Neck: supple, no lymphadenopathy, no JVD Effort: mildly labored Ascultation: Bilateral: diminished breath sounds, rhonchi Percussion: Bilateral: not dull Cardiovascular: regular rate and rhythm Gastrointestinal: normoactive bowel sounds, soft, non-tender, non-distended Integumentary: normal Extremities: no cyanosis, no edema, pulses normal, no ischemia or petechiae Neurologic: non-focal exam (grossly), pupils equal and round, unable to assess Psychiatric: other (Unable to assess re: AMS) CBC and BMP: 06/20/19 05:40 06/20/19 05:40 ABG, PT/INR, D-dimer: ABG ABG pH 7.388 pH Units (7.350-7.450) 06/18/19 04:25 ABG pCO2 57.4 mm Hg 06/18/19 04:25 ABG pO2 72.9 mm Hg (80.0-90.0) L 06/18/19 04:25 ABG O2 Saturation 94.6 % (95.0-99.0) L 06/18/19 04:25 PT/INR, D-dimer PT 13.0 Sec. (12.2-14.9) 06/11/19 18:03 INR 0.97 (0.87-1.13) 06/11/19 18:03 Abnormal lab findings: Abnormal Labs 06/11/19 06/11/19 06/11/19 18:03 18:03 18:03 WBC MCH 25 L RDW 19.4 H Plt Count 124 L [place] % (Auto) 10.3 H Lymph # 1.1 L Seg Neutrophils % 74.4 H Seg Neuts % (Manual) Lymphocytes % (Manual) Seg Neutrophils # Man Lymphocytes # (Manual) ABG pH ABG pO2 ABG HCO3 ABG O2 Saturation ABG Base Excess ABG Hemoglobin Oxyhemoglobin Sodium 146 H Chloride Carbon Dioxide BUN 21 H Creatinine 0.4 L Glucose POC Glucose Calcium Magnesium 2.70 H CK-MB (CK-2) CK-MB (CK-2) Rel Index Albumin 3.5 L Ur Specific [place] Urine WBC (Auto) Salicylates 1.0 L Acetaminophen 06/11/19 06/11/19 06/11/19 18:03 18:59 23:22 WBC MCH RDW Plt Count [place] % (Auto) Lymph # Seg Neutrophils % Seg Neuts % (Manual) Lymphocytes % (Manual) Seg Neutrophils # Man Lymphocytes # (Manual) ABG pH 7.340 L ABG pO2 76.0 L ABG HCO3 34.6 H ABG O2 Saturation ABG Base Excess 7.1 H ABG Hemoglobin 10.9 L Oxyhemoglobin 91.6 L Sodium Chloride Carbon Dioxide BUN Creatinine Glucose POC Glucose Calcium Magnesium CK-MB (CK-2) 5.5 H CK-MB (CK-2) Rel Index 5.5 H Albumin Ur Specific [place] Urine WBC (Auto) Salicylates Acetaminophen < 5.0 L 06/12/19 06/12/19 06/12/19 00:29 02:04 04:20 WBC MCH RDW Plt Count [place] % (Auto) Lymph # Seg Neutrophils % Seg Neuts % (Manual) Lymphocytes % (Manual) Seg Neutrophils # Man Lymphocytes # (Manual) ABG pH 7.313 L ABG pO2 75.3 L ABG HCO3 29.9 H ABG O2 Saturation 94.3 L ABG Base Excess ABG Hemoglobin 10.8 L Oxyhemoglobin 92.0 L Sodium Chloride Carbon Dioxide BUN Creatinine Glucose POC Glucose 107 H Calcium Magnesium CK-MB (CK-2) CK-MB (CK-2) Rel Index Albumin Ur Specific [place] Urine WBC (Auto) 30.0 H Salicylates Acetaminophen 06/12/19 06/12/19 06/12/19 05:09 05:09 05:09 WBC MCH 25 L RDW 19.4 H Plt Count 114 L [place] % (Auto) Lymph # Seg Neutrophils % Seg Neuts % (Manual) 91.0 H Lymphocytes % (Manual) 7.0 L Seg Neutrophils # Man Lymphocytes # (Manual) 0.4 L ABG pH ABG pO2 ABG HCO3 ABG O2 Saturation ABG Base Excess ABG Hemoglobin Oxyhemoglobin Sodium 147 H Chloride 107.4 H Carbon Dioxide BUN 19 H Creatinine 0.4 L Glucose 110 H POC Glucose Calcium 8.2 L Magnesium CK-MB (CK-2) CK-MB (CK-2) Rel Index 5.4 H Albumin Ur Specific [place] Urine WBC (Auto) Salicylates Acetaminophen 06/12/19 06/12/19 06/13/19 06:42 23:21 04:14 WBC MCH RDW Plt Count [place] % (Auto) Lymph # Seg Neutrophils % Seg Neuts % (Manual) Lymphocytes % (Manual) Seg Neutrophils # Man Lymphocytes # (Manual) ABG pH ABG pO2 62.6 L ABG HCO3 29.6 H ABG O2 Saturation 91.0 L ABG Base Excess ABG Hemoglobin 10.3 L Oxyhemoglobin 89.0 L Sodium Chloride Carbon Dioxide BUN Creatinine Glucose POC Glucose 108 H 106 H Calcium Magnesium CK-MB (CK-2) CK-MB (CK-2) Rel Index Albumin Ur Specific [place] Urine WBC (Auto) Salicylates Acetaminophen 06/13/19 06/13/19 06/13/19 04:54 04:54 12:20 WBC MCH 25 L RDW 19.2 H Plt Count 119 L [place] % (Auto) Lymph # Seg Neutrophils % Seg Neuts % (Manual) 95.0 H Lymphocytes % (Manual) 2.0 L Seg Neutrophils # Man 9.1 H Lymphocytes # (Manual) 0.2 L ABG pH ABG pO2 ABG HCO3 ABG O2 Saturation ABG Base Excess ABG Hemoglobin Oxyhemoglobin Sodium 149 H Chloride 111.4 H Carbon Dioxide BUN 26 H Creatinine 0.5 L Glucose 107 H POC Glucose 125 H Calcium Magnesium CK-MB (CK-2) CK-MB (CK-2) Rel Index Albumin Ur Specific [place] Urine WBC (Auto) Salicylates Acetaminophen 06/13/19 06/14/19 06/14/19 17:25 03:44 04:55 WBC MCH RDW Plt Count [place] % (Auto) Lymph # Seg Neutrophils % Seg Neuts % (Manual) Lymphocytes % (Manual) Seg Neutrophils # Man Lymphocytes # (Manual) ABG pH ABG pO2 58.9 L ABG HCO3 29.5 H ABG O2 Saturation 88.7 L ABG Base Excess ABG Hemoglobin 10.2 L Oxyhemoglobin 86.7 L Sodium 150 H Chloride 110.4 H Carbon Dioxide BUN 20 H Creatinine 0.4 L Glucose 105 H POC Glucose 128 H Calcium Magnesium CK-MB (CK-2) CK-MB (CK-2) Rel Index Albumin Ur Specific [place] Urine WBC (Auto) Salicylates Acetaminophen 06/14/19 06/14/19 06/14/19 05:37 11:58 21:00 WBC MCH RDW Plt Count [place] % (Auto) Lymph # Seg Neutrophils % Seg Neuts % (Manual) Lymphocytes % (Manual) Seg Neutrophils # Man Lymphocytes # (Manual) ABG pH 7.321 L ABG pO2 60.0 L ABG HCO3 31.4 H ABG O2 Saturation 87.3 L ABG Base Excess 4.1 H ABG Hemoglobin 10.6 L Oxyhemoglobin 84.8 L Sodium Chloride Carbon Dioxide BUN Creatinine Glucose POC Glucose 111 H 116 H Calcium Magnesium CK-MB (CK-2) CK-MB (CK-2) Rel Index Albumin Ur Specific [place] Urine WBC (Auto) Salicylates Acetaminophen 06/15/19 06/15/19 06/15/19 00:22 03:25 05:08 WBC MCH RDW Plt Count [place] % (Auto) Lymph # Seg Neutrophils % Seg Neuts % (Manual) Lymphocytes % (Manual) Seg Neutrophils # Man Lymphocytes # (Manual) ABG pH 7.317 L ABG pO2 ABG HCO3 31.5 H ABG O2 Saturation ABG Base Excess 4.1 H ABG Hemoglobin 10.4 L Oxyhemoglobin 94.1 L Sodium Chloride Carbon Dioxide 31 H BUN 23 H Creatinine 0.3 L Glucose 120 H POC Glucose 108 H Calcium Magnesium CK-MB (CK-2) CK-MB (CK-2) Rel Index Albumin Ur Specific [place] Urine WBC (Auto) Salicylates Acetaminophen 06/15/19 06/15/19 06/15/19 05:24 11:41 17:38 WBC MCH RDW Plt Count [place] % (Auto) Lymph # Seg Neutrophils % Seg Neuts % (Manual) Lymphocytes % (Manual) Seg Neutrophils # Man Lymphocytes # (Manual) ABG pH ABG pO2 ABG HCO3 ABG O2 Saturation ABG Base Excess ABG Hemoglobin Oxyhemoglobin Sodium Chloride Carbon Dioxide BUN Creatinine Glucose POC Glucose 111 H 154 H 115 H Calcium Magnesium CK-MB (CK-2) CK-MB (CK-2) Rel Index Albumin Ur Specific [place] Urine WBC (Auto) Salicylates Acetaminophen 06/15/19 06/16/19 06/16/19 23:31 03:40 05:18 WBC MCH RDW Plt Count [place] % (Auto) Lymph # Seg Neutrophils % Seg Neuts % (Manual) Lymphocytes % (Manual) Seg Neutrophils # Man Lymphocytes # (Manual) ABG pH 7.313 L ABG pO2 96.4 H ABG HCO3 35.2 H ABG O2 Saturation ABG Base Excess 7.2 H ABG Hemoglobin 10.5 L Oxyhemoglobin 94.9 L Sodium Chloride Carbon Dioxide BUN Creatinine Glucose POC Glucose 161 H 158 H Calcium Magnesium CK-MB (CK-2) CK-MB (CK-2) Rel Index Albumin Ur Specific [place] Urine WBC (Auto) Salicylates Acetaminophen 06/16/19 06/16/19 06/16/19 05:45 05:45 12:06 WBC 12.1 H MCH 25 L RDW 18.7 H Plt Count 93 L [place] % (Auto) Lymph # Seg Neutrophils % Seg Neuts % (Manual) 97.0 H Lymphocytes % (Manual) 0 L Seg Neutrophils # Man 11.7 H Lymphocytes # (Manual) 0.0 L ABG pH ABG pO2 ABG HCO3 ABG O2 Saturation ABG Base Excess ABG Hemoglobin Oxyhemoglobin Sodium Chloride Carbon Dioxide 33 H BUN 25 H Creatinine 0.3 L Glucose 165 H POC Glucose 178 H Calcium Magnesium CK-MB (CK-2) CK-MB (CK-2) Rel Index Albumin Ur Specific [place] Urine WBC (Auto) Salicylates Acetaminophen 06/16/19 06/16/19 06/17/19 17:55 23:42 03:35 WBC MCH RDW Plt Count [place] % (Auto) Lymph # Seg Neutrophils % Seg Neuts % (Manual) Lymphocytes % (Manual) Seg Neutrophils # Man Lymphocytes # (Manual) ABG pH ABG pO2 73.2 L ABG HCO3 35.2 H ABG O2 Saturation 94.5 L ABG Base Excess 8.8 H ABG Hemoglobin 10.7 L Oxyhemoglobin 92.6 L Sodium Chloride Carbon Dioxide BUN Creatinine Glucose POC Glucose 180 H 160 H Calcium Magnesium CK-MB (CK-2) CK-MB (CK-2) Rel Index Albumin Ur Specific [place] Urine WBC (Auto) Salicylates Acetaminophen 06/17/19 06/17/19 06/17/19 04:57 09:45 11:59 WBC 11.7 H MCH 25 L RDW 18.2 H Plt Count 79 L [place] % (Auto) Lymph # Seg Neutrophils % Seg Neuts % (Manual) 96.0 H Lymphocytes % (Manual) 3.0 L Seg Neutrophils # Man 11.2 H Lymphocytes # (Manual) 0.4 L ABG pH ABG pO2 ABG HCO3 ABG O2 Saturation ABG Base Excess ABG Hemoglobin Oxyhemoglobin Sodium Chloride Carbon Dioxide 34 H BUN 31 H Creatinine 0.3 L Glucose 153 H POC Glucose 163 H Calcium Magnesium CK-MB (CK-2) CK-MB (CK-2) Rel Index Albumin Ur Specific [place] Urine WBC (Auto) Salicylates Acetaminophen 06/17/19 06/17/19 06/18/19 17:33 23:39 04:25 WBC MCH RDW Plt Count [place] % (Auto) Lymph # Seg Neutrophils % Seg Neuts % (Manual) Lymphocytes % (Manual) Seg Neutrophils # Man Lymphocytes # (Manual) ABG pH ABG pO2 72.9 L ABG HCO3 33.8 H ABG O2 Saturation 94.6 L ABG Base Excess 7.3 H ABG Hemoglobin 11.1 L Oxyhemoglobin 92.8 L Sodium Chloride Carbon Dioxide BUN Creatinine Glucose POC Glucose 186 H 161 H Calcium Magnesium CK-MB (CK-2) CK-MB (CK-2) Rel Index Albumin Ur Specific [place] Urine WBC (Auto) Salicylates Acetaminophen 06/18/19 06/18/19 06/18/19 05:23 05:23 05:37 WBC 13.2 H MCH 25 L RDW 18.3 H Plt Count 81 L [place] % (Auto) Lymph # Seg Neutrophils % Seg Neuts % (Manual) 96.0 H Lymphocytes % (Manual) 4.0 L Seg Neutrophils # Man 12.7 H Lymphocytes # (Manual) 0.5 L ABG pH ABG pO2 ABG HCO3 ABG O2 Saturation ABG Base Excess ABG Hemoglobin Oxyhemoglobin Sodium Chloride Carbon Dioxide 34 H BUN 36 H Creatinine 0.3 L Glucose 162 H POC Glucose 177 H Calcium Magnesium CK-MB (CK-2) CK-MB (CK-2) Rel Index Albumin Ur Specific [place] Urine WBC (Auto) Salicylates Acetaminophen 06/18/19 06/18/19 06/18/19 12:26 18:17 23:51 WBC MCH RDW Plt Count [place] % (Auto) Lymph # Seg Neutrophils % Seg Neuts % (Manual) Lymphocytes % (Manual) Seg Neutrophils # Man Lymphocytes # (Manual) ABG pH ABG pO2 ABG HCO3 ABG O2 Saturation ABG Base Excess ABG Hemoglobin Oxyhemoglobin Sodium Chloride Carbon Dioxide BUN Creatinine Glucose POC Glucose 156 H 134 H 153 H Calcium Magnesium CK-MB (CK-2) CK-MB (CK-2) Rel Index Albumin Ur Specific [place] Urine WBC (Auto) Salicylates Acetaminophen 06/19/19 06/19/19 06/19/19 05:58 12:12 12:40 WBC MCH RDW Plt Count [place] % (Auto) Lymph # Seg Neutrophils % Seg Neuts % (Manual) Lymphocytes % (Manual) Seg Neutrophils # Man Lymphocytes # (Manual) ABG pH ABG pO2 ABG HCO3 ABG O2 Saturation ABG Base Excess ABG Hemoglobin Oxyhemoglobin Sodium Chloride Carbon Dioxide BUN Creatinine Glucose POC Glucose 143 H 186 H Calcium Magnesium CK-MB (CK-2) CK-MB (CK-2) Rel Index Albumin Ur Specific [place] 1.032 H Urine WBC (Auto) Salicylates Acetaminophen Chest x-ray: image reviewed (no new infiltrate; ETT in good position) Allied health notes reviewed: nursing
[2019-06-19 15:23] LABS: C-Reactive Protein 0.1 mg/dL (0.00-1.30)
[2019-06-19] MEDS: DIGOXIN 0.5 MG/2 ML INJ IV SCH (16:31)
[2019-06-19 16:56] LABS: ABG Base Excess 6.3 mmol/L (-2.0-3.0); ABG HCO3 32.1 mmol/L (20.0-26.0); ABG PCO2 50.1 mm Hg; ABG PH 7.424 pH Units (7.350-7.450); ABG PO2 54.2 mm Hg (80.0-90.0)
[2019-06-19 17:00] LABS: ABG Methemoglobin 0.5 % (0.0-1.5); ABG Oxygen Saturation 87.8 % (95.0-99.0)
[2019-06-19] MEDS: VANCOMYCIN/NS 1 GM/250 ML 1 GM/250 ML BAG IV SCH (21:08)
[2019-06-20] MEDS: INSULIN LISPRO 100 UNIT/ML SUB-Q SCH ×4 (00:16→18:24)
--- NOTE | 2019-06-20 02:16 | XRay Report ---
CHEST 1 VIEW INDICATION: follow up respiratory failure. COMPARISON: Previous day. FINDINGS: Support devices: Endotracheal tube unchanged. Heart: Stable cardiomegaly. Lungs/Pleura: Persistent left basilar effusion/volume loss. Vascular congestion has improved. Additional findings: None. IMPRESSION: Improving vascular congestion. Signer Name: Hugh Daley MD Signed: 06/20/2019 2:11 AM Workstation Name: [id number]
--- NOTE | 2019-06-20 03:44 | XRay Report ---
ABDOMEN 1 VIEW(S) INDICATION / CLINICAL INFORMATION: og tube placement. COMPARISON: None available. FINDINGS: TUBES / LINES: Satisfactory NG tube placement. BOWEL GAS PATTERN: Moderate bowel distention diffusely. Large amount of right-sided colonic stool. ADDITIONAL FINDINGS: IVC filter. Signer Name: Hugh Daley MD Signed: 06/20/2019 3:39 AM Workstation Name: [email or web address]
[2019-06-20] MEDS: ALPRAZolam 0.25 MG TAB PO PRN ×2 (04:39→16:45)
[2019-06-20] MEDS: dilTIAZem 30 MG TAB PO SCH ×4 (04:39→21:25)
[2019-06-20] MEDS: methylPREDNISolone Sod Succinate 125 MG/2 ML INJ IV SCH ×4 (04:40→18:25)
[2019-06-20] MEDS: CEFEPIME/NS 1 GM/100 ML 1 GM/100 ML BAG IV SCH ×4 (04:40→21:25)
[2019-06-20 05:35] LABS: ABG Base Excess 6.2 mmol/L (-2.0-3.0); ABG HCO3 32.9 mmol/L (20.0-26.0); ABG PCO2 55.4 mm Hg; ABG PH 7.391 pH Units (7.350-7.450); ABG PO2 63.4 mm Hg (80.0-90.0)
[2019-06-20 05:41] LABS: ABG Methemoglobin 0.4 % (0.0-1.5); ABG Oxygen Saturation 91.8 % (95.0-99.0)
[2019-06-20 06:02] LABS: Mean Corpuscular HGB Conc 30 % (30-34); Mean Corpuscular Volume 81 fl (79-97); Red Blood Count 4.28 M/mm3 (3.65-5.03); Red Cell Distribution Width 18.3 % (13.2-15.2)
[2019-06-20 06:04] LABS: Hematocrit 34.6 % (30.3-42.9); Hemoglobin 10.5 gm/dl (10.1-14.3); Platelet Count 79 K/mm3 (140-440)
[2019-06-20 06:15] LABS: BUN/Creatinine Ratio 83; Blood Urea Nitrogen 25 mg/dL (7-17); Calcium 8.4 mg/dL (8.4-10.2); Hemolysis Index 18
[2019-06-20] MEDS: fentaNYL DRIP Premix 2,000 MCG/100 ML BAG IV SCH ×3 (06:42→21:24)
[2019-06-20] MEDS: IPRATROPIUM/ALBUTEROL SULFATE 3 ML AMPUL.NEB IH SCH ×3 (07:37→20:55)
[2019-06-20] MEDS: ARFORMOTEROL 15 MCG/2 ML NEBU IH SCH ×2 (07:37→20:56)
[2019-06-20] MEDS: BUDESONIDE 0.5 MG/2 ML NEBU IH SCH ×2 (07:37→20:56)
[2019-06-20] MEDS: fentaNYL 100 MCG/2 ML INJ IV PRN ×2 (08:00→14:56)
[2019-06-20] MEDS: ACETAMINOPHEN 325 MG TAB PO PRN (08:03)
[2019-06-20] MEDS: VENLAFAXINE 75 MG TAB PO SCH ×3 (08:05→20:50)
--- NOTE | 2019-06-20 09:55 | Progress Note ---
Assessment and Plan Assessment and plan: 59-year-old female patient with significant history of hypertension GERD depression COPD coronary artery disease CHF was admitted through emergency room with acute hypoxic hypercapnic respiratory failure requiring intubation and ventilatory support. Admitted to ICU evaluated by pulmonary critical, cardiology for A. fib flutter with rapid ventricular rate, started on Cardizem and amiodarone. Not a candidate for anticoagulation due to history of severe GI bleeding. Imaging personally reviewed: Chest x-ray: Left basilar effusion, previous x-rays with bibasilar opacities Patient had mild hypotension, improved with holding, Blood pressure and diuretic meds, closely monitor Intubated on vent, wean as tolerated and extubate, Sputum cultures positive for Pseudomonas, continue cefepime --Sepsis: R/O COVID19. Isolation initiated per discussion, coronavirus testing was negative. Continue vancomycin and cefepime empirically pending new cultures, ID consulted. Sputum growing pseudomonas aeruginosa. --Acute hypoxic and hypercapnic respiratory failure: Requiring intubation and ventilatory support Nebulizers, IV steroids, IV antibiotics inhalation steroids Pulmonary critical following, supportive care Wean as tolerated and extubate --Acute exacerbation of COPD : Nebulizers, tapering doses steroids --Left lung basilar density; pneumonia Continue empiric antibiotics follow cultures Sputum cultures positive for Pseudomonas Continue cefepime --Paroxysmal A. 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 when patient is more stable Nicotine patch as needed --Obesity; BMI 32.2 Patient needs weight reduction when medically stable Thrombocytopenia -- monitor --Tube feeding diet; per dietary recommendations --DVT prophylaxis; Lovenox --Full CODE STATUS Restraints in place Patient is critically ill with poor prognosis Closely monitor the patient and adjust management as needed Follow human resources consultant recommendations The high probability of a clinically significant, sudden or life threatening deterioration of the [respiratory, CVS] system(s) required my full and direct attention, intervention and personal management. The aggregate critical care time was [33] minutes. This time is in addition to time spent performing reported procedures but includes the following: [x] Data Review and interpretation [x] Patient assessment and monitoring of vital signs [x] Documentation [x] Medication orders and management Critical care time 35 minutes Monitor closely and adjust management as needed History Interval history: Patient seen and examined, remains on Mechanical ventilation, continues with recurrent fevers. Follows commands while awake, but still unable to wean off the vent versus agitated. Hospitalist Physical - Physical exam Narrative exam: General appearance: Present: On mechanical ventilation, restless well-nourished, obese, other (Intubated on ventilatory support sedated) - EENT Eyes: Present: PERRL. Absent: scleral icterus - Neck Neck: Present: supple, normal ROM - Respiratory Respiratory effort: normal Respiratory: bilateral: diminished, rhonchi, negative: rales, wheezing - Cardiovascular Rhythm: irregularly irregular Heart Sounds: Present: S1 & S2 - Extremities Extremities: no ischemia Extremity abnormal: edema - Abdominal General gastrointestinal: soft, non-tender, non-distended, normal bowel sounds - Integumentary Integumentary: Present: clear, warm, edema - Psychiatric Psychiatric: other (Intubated on vent) - Neurologic Neurologic: other (Intubated on vent) agitated - Constitutional Vitals: Temp Pulse Resp BP Pulse Ox 99.8 F H 98 H 10 L 118/66 93 06/20/19 04:00 06/20/19 07:46 06/20/19 07:46 06/20/19 07:46 06/20/19 07:46 General appearance: Present: no acute distress, well-nourished, obese, other (Intubated on ventilatory support sedated) Results - Labs CBC & Chem 7: 06/21/19 04:58 06/21/19 04:58 Labs: Laboratory Last Values WBC 16.4 K/mm3 (4.5-11.0) H 06/20/19 05:40 RBC 4.28 M/mm3 (3.65-5.03) 06/20/19 05:40 Hgb 10.5 gm/dl (10.1-14.3) 06/20/19 05:40 Hct 34.6 % (30.3-42.9) 06/20/19 05:40 MCV 81 fl (79-97) 06/20/19 05:40 MCH 25 pg (28-32) L 06/20/19 05:40 MCHC 30 % (30-34) 06/20/19 05:40 RDW 18.3 % (13.2-15.2) H 06/20/19 05:40 Plt Count 79 K/mm3 (140-440) L 06/20/19 05:40 Lymph % (Auto) 13.7 % (13.4-35.0) 06/11/19 18:03 [place] % (Auto) 10.3 % (0.0-7.3) H 06/11/19 18:03 Eos % (Auto) 0.8 % (0.0-4.3) 06/11/19 18:03 Baso % (Auto) 0.8 % (0.0-1.8) 06/11/19 18:03 Lymph # 1.1 K/mm3 (1.2-5.4) L 06/11/19 18:03 [place] # 0.8 K/mm3 (0.0-0.8) 06/11/19 18:03 Eos # 0.1 K/mm3 (0.0-0.4) 06/11/19 18:03 Baso # 0.1 K/mm3 (0.0-0.1) 06/11/19 18:03 Add Manual Diff Complete 06/18/19 05:23 Total Counted 100 06/18/19 05:23 Seg Neutrophils % Fur Ironer 06/18/19 05:23 Seg Neuts % (Manual) 96.0 % (40.0-70.0) H 06/18/19 05:23 Band Neutrophils % 0 % 06/18/19 05:23 Lymphocytes % (Manual) 4.0 % (13.4-35.0) L 06/18/19 05:23 Reactive Lymphs % (Man) 0 % 06/18/19 05:23 Monocytes % (Manual) 0 % (0.0-7.3) 06/18/19 05:23 Eosinophils % (Manual) 0 % (0.0-4.3) 06/18/19 05:23 Basophils % (Manual) 0 % (0.0-1.8) 06/18/19 05:23 Metamyelocytes % 0 % 06/18/19 05:23 Myelocytes % 0 % 06/18/19 05:23 Promyelocytes % 0 % 06/18/19 05:23 Blast Cells % 0 % 06/18/19 05:23 Nucleated RBC % Not Reportable 06/18/19 05:23 Seg Neutrophils # 6.0 K/mm3 (1.8-7.7) 06/11/19 18:03 Seg Neutrophils # Man 12.7 K/mm3 (1.8-7.7) H 06/18/19 05:23 Band Neutrophils # 0.0 K/mm3 06/18/19 05:23 Lymphocytes # (Manual) 0.5 K/mm3 (1.2-5.4) L 06/18/19 05:23 Abs React Lymphs (Man) 0.0 K/mm3 06/18/19 05:23 Monocytes # (Manual) 0.0 K/mm3 (0.0-0.8) 06/18/19 05:23 Eosinophils # (Manual) 0.0 K/mm3 (0.0-0.4) 06/18/19 05:23 Basophils # (Manual) 0.0 K/mm3 (0.0-0.1) 06/18/19 05:23 Metamyelocytes # 0.0 K/mm3 06/18/19 05:23 Myelocytes # 0.0 K/mm3 06/18/19 05:23 Promyelocytes # 0.0 K/mm3 06/18/19 05:23 Blast Cells # 0.0 K/mm3 06/18/19 05:23 WBC Morphology Not Reportable 06/18/19 05:23 Hypersegmented Neuts Not Reportable 06/18/19 05:23 Hyposegmented Neuts Not Reportable 06/18/19 05:23 Hypogranular Neuts Not Reportable 06/18/19 05:23 Smudge Cells Not Reportable 06/18/19 05:23 Toxic Granulation Not Reportable 06/18/19 05:23 Toxic Vacuolation Not Reportable 06/18/19 05:23 Dohle Bodies Not Reportable 06/18/19 05:23 Pelger-Huet Anomaly Not Reportable 06/18/19 05:23 Neha Rods Not Reportable 06/18/19 05:23 Platelet Estimate Consistent w auto 06/18/19 05:23 Clumped Platelets Not Reportable 06/18/19 05:23 Plt Clumps, EDTA Not Reportable 06/18/19 05:23 Large Platelets Not Reportable 06/18/19 05:23 Giant Platelets Not Reportable 06/18/19 05:23 Platelet Satelliting Not Reportable 06/18/19 05:23 Plt Morphology Comment Not Reportable 06/18/19 05:23 RBC Morphology Not Reportable 06/18/19 05:23 Dimorphic RBCs Not Reportable 06/18/19 05:23 Polychromasia Not Reportable 06/18/19 05:23 Hypochromasia Few 06/18/19 05:23 Poikilocytosis Not Reportable 06/18/19 05:23 Anisocytosis Few 06/18/19 05:23 Microcytosis Not Reportable 06/18/19 05:23 Macrocytosis Not Reportable 06/18/19 05:23 Spherocytes Not Reportable 06/18/19 05:23 Pappenheimer Bodies Not Reportable 06/18/19 05:23 Sickle Cells Not Reportable 06/18/19 05:23 Target Cells Not Reportable 06/18/19 05:23 Tear Drop Cells Not Reportable 06/18/19 05:23 Ovalocytes Not Reportable 06/18/19 05:23 Helmet Cells Not Reportable 06/18/19 05:23 [place] Bodies Not Reportable 06/18/19 05:23 [place] Rings Not Reportable 06/18/19 05:23 [place] Cells Not Reportable 06/18/19 05:23 Bite Cells Not Reportable 06/18/19 05:23 Crenated Cell Not Reportable 06/18/19 05:23 Elliptocytes Not Reportable 06/18/19 05:23 Acanthocytes (Spur) Not Reportable 06/18/19 05:23 Rouleaux Not Reportable 06/18/19 05:23 Hemoglobin C Crystals Not Reportable 06/18/19 05:23 Schistocytes Few 06/18/19 05:23 Malaria parasites Not Reportable 06/18/19 05:23 Hernan Bodies Not Reportable 06/18/19 05:23 Hem Pathologist Commnt No 06/18/19 05:23 PT 13.0 Sec. (12.2-14.9) 06/11/19 18:03 INR 0.97 (0.87-1.13) 06/11/19 18:03 D-Dimer 1177.30 ng/mlDDU (0-234) H 06/19/19 14:14 ABG pH 7.391 pH Units (7.350-7.450) 06/20/19 05:30 ABG pCO2 55.4 mm Hg 06/20/19 05:30 ABG pO2 63.4 mm Hg (80.0-90.0) L 06/20/19 05:30 ABG HCO3 32.9 mmol/L (20.0-26.0) H 06/20/19 05:30 ABG O2 Saturation 91.8 % (95.0-99.0) L 06/20/19 05:30 ABG O2 Content 19.4 (0.0-44) 06/20/19 05:30 ABG Base Excess 6.2 mmol/L (-2.0-3.0) H 06/20/19 05:30 ABG Hemoglobin 10.4 gm/dl (12.0-16.0) L 06/20/19 05:30 ABG Carboxyhemoglobin 1.8 % (0.0-5.0) 06/20/19 05:30 ABG Methemoglobin 0.4 % (0.0-1.5) 06/20/19 05:30 Oxyhemoglobin 89.7 % (95.0-99.0) L 06/20/19 05:30 FiO2 40 % 06/20/19 05:30 Sodium 140 mmol/L (137-145) 06/20/19 05:40 Potassium 4.8 mmol/L (3.6-5.0) 06/20/19 05:40 Chloride 100.2 mmol/L (98-107) 06/20/19 05:40 Carbon Dioxide 31 mmol/L (22-30) H 06/20/19 05:40 Anion Gap 14 mmol/L 06/20/19 05:40 BUN 25 mg/dL (7-17) H 06/20/19 05:40 Creatinine 0.3 mg/dL (0.7-1.2) L 06/20/19 05:40 Estimated GFR > 60 ml/min 06/20/19 05:40 BUN/Creatinine Ratio 83 % 06/20/19 05:40 Glucose 150 mg/dL (65-100) H 06/20/19 05:40 POC Glucose 164 (70-105) H 06/20/19 05:14 Calcium 8.4 mg/dL (8.4-10.2) 06/20/19 05:40 Phosphorus 4.50 mg/dL (2.5-4.5) 06/15/19 05:08 Magnesium 2.20 mg/dL (1.7-2.3) 06/15/19 05:08 Ferritin 43.6 ng/mL (13.0-400.0) 06/19/19 14:14 Total Bilirubin 0.30 mg/dL (0.1-1.2) 06/11/19 18:03 AST 14 units/L (5-40) 06/11/19 18:03 ALT 8 units/L (7-56) 06/11/19 18:03 Alkaline Phosphatase 85 units/L (35-129) 06/11/19 18:03 Lactate Dehydrogenase 290 units/L (91-180) H 06/19/19 14:14 Total Creatine Kinase 74 units/L (30-135) 06/12/19 05:09 CK-MB (CK-2) 4.0 ng/mL (0.0-4.0) 06/12/19 05:09 CK-MB (CK-2) Rel Index 5.4 (0-4) H 06/12/19 05:09 Troponin T < 0.010 ng/mL (0.00-0.029) 06/12/19 05:09 C-Reactive Protein 0.10 mg/dL (0.00-1.30) 06/19/19 14:14 Total Protein 6.4 g/dL (6.3-8.2) 06/11/19 18:03 Albumin 3.5 g/dL (3.9-5) L 06/11/19 18:03 Albumin/Globulin Ratio 1.2 % 06/11/19 18:03 Procalcitonin < 0.05 ng/mL (<0.15) 06/19/19 14:14 Urine Color Yellow (Yellow) 06/19/19 12:40 Urine Turbidity Clear (Clear) 06/19/19 12:40 Urine pH 5.0 (5.0-7.0) 06/19/19 12:40 Ur Specific [place] 1.032 (1.003-1.030) H 06/19/19 12:40 Urine Protein 30 mg/dl mg/dL (Negative) 06/19/19 12:40 Urine Glucose (UA) Neg mg/dL (Negative) 06/19/19 12:40 Urine Ketones Neg mg/dL (Negative) 06/19/19 12:40 Urine Blood Sm (Negative) 06/19/19 12:40 Urine Nitrite Neg (Negative) 06/19/19 12:40 Urine Bilirubin Neg (Negative) 06/19/19 12:40 Urine Urobilinogen < 2.0 mg/dL (<2.0) 06/19/19 12:40 Ur Leukocyte Esterase Neg (Negative) 06/19/19 12:40 Urine WBC (Auto) 4.0 /HPF (0.0-6.0) 06/19/19 12:40 Urine RBC (Auto) 44.0 /HPF (0.0-6.0) 06/19/19 12:40 Urine Bacteria (Auto) 1+ /HPF (Negative) 06/19/19 12:40 Hyaline Casts 15 /LPF 06/19/19 12:40 Urine Mucus Few /HPF 06/19/19 12:40 Urine Yeast (Budding) Few /HPF 06/12/19 02:04 Digoxin 1.0 ng/mL (0.9-2.0) 06/20/19 05:40 Salicylates 1.0 mg/dL (2.8-20.0) L 06/11/19 18:03 Acetaminophen < 5.0 ug/mL (10.0-30.0) L 06/11/19 18:03 Blood Type O POSITIVE 06/19/19 10:08 Antibody Screen Negative 06/19/19 10:08 Microbiology: Microbiology 06/19/19 10:10 Peripheral/Venous Blood Culture - Preliminary Culture in Progress 06/19/19 10:10 Peripheral/Venous Blood Culture - Preliminary Culture in Progress [place]/IV: Voiding Method Indwelling Catheter IV Catheter Type [Right Upper INT / Saline Lock arm] IV Catheter Type [Left Peripheral IV Antecubital] IV Catheter Type [Right Wrist] Peripheral IV IV Catheter Type [Right Hand] Peripheral IV Active Medications - Current Medications Current Medications: Generic Name Dose Route Start Last Admin Trade Name Freq PRN Reason Stop Dose Admin Acetaminophen 650 mg 06/11/19 22:48 06/19/19 10:03 Tylenol PO 650 mg Q4H PRN Administration Pain MILD(1-3)/Fever >100.5/PRAJAPATI Albuterol 2.5 mg 06/14/19 08:20 Proventil IH Q4HRT PRN Shortness Of Breath Albuterol/Ipratropium 1 ampul 06/14/19 14:00 06/20/19 07:37 Duoneb *Not For Prn Use* IH 1 ampul TIDRT DOMINICK Administration Alprazolam 0.25 mg 06/13/19 10:23 06/20/19 04:39 Xanax PO 0.25 mg Q8H PRN Administration Anxiety Amiodarone HCl 200 mg 06/17/19 10:00 06/19/19 10:03 Cordarone PO 200 mg QDAY DOMINICK Administration Lipase/Protease/Amylase 1 each 06/13/19 17:[address] 10,500 Unit FEEDTUBE PRN PRN For Clogged Feeding Tube Arformoterol Tartrate 15 mcg 06/14/19 20:00 06/20/19 07:37 Brovana Nebu IH 15 mcg Q12HRT [facility] Administration Budesonide 0.5 mg 06/14/19 20:00 06/20/19 07:37 Pulmicort IH 0.5 mg Q12HRT [facility] Administration Dextrose 50 ml 06/11/19 22:48 D50w (25gm) Syringe IV Q30MIN PRN Hypoglycemia Protocol Digoxin 0.125 mg 06/16/19 17:00 06/19/19 16:31 Lanoxin IV 0.125 mg QDAY@1700 DOMINICK Administration Diltiazem HCl 30 mg 06/16/19 11:30 06/20/19 05:19 Cardizem PO Not Given Q8HR [facility] Docusate Sodium 100 mg 06/18/19 11:00 06/19/19 21:08 Colace PO 100 mg BID [facility] Administration Fentanyl 50 mcg 06/11/19 17:45 06/11/19 20:52 Sublimaze IV 50 mcg Q10MIN PRN Administration ANALGESIA Hydrophilic Ointment 1 applic 06/11/19 17:44 Vaseline Lip Therapy TP Q2HR PRN Dry Lips Fentanyl Citrate 2,000 mcg in 100 mls @ 3.742 mls/hr 06/11/19 18:00 06/20/19 06:42 Fentanyl Drip Premix IV 4 mcg/kg/hr TITR DOMINICK 14.969 mls/hr Administration Protocol 1 MCG/KG/HR Lorazepam 100 mg/ Sodium 100 mls @ 1 mls/hr 06/11/19 18:00 06/14/19 22:15 Chloride/ Miscellaneous IV 0 mg/hr Information TITR DOMINICK 0 mls/hr Titration Protocol 1 MG/HR Cefepime HCl 1 gm in 100 mls @ 200 mls/hr 06/14/19 14:00 06/20/19 05:19 Cefepime/Ns 1 Gm/100 Ml IV Not Given Q8HR [facility] Protocol Sodium Chloride 500 mls @ 5 mls/hr 06/18/19 04:00 06/17/19 23:30 Nacl 0.9% 500 Ml IV 5 mls/hr DIRECT DOMINICK Administration Vancomycin HCl 1 gm in 250 mls @ 167.007 mls/hr 06/19/19 22:00 06/19/19 21:08 Vancomycin/Ns 1 Gm/250 Ml IV 167.007 mls/hr Q12HR DOMINICK Administration Insulin Human Lispro 0 unit 06/12/19 00:00 06/20/19 05:20 Humalog SUB-Q Not Given Q6HR [facility] Protocol Lansoprazole 30 mg 06/13/19 11:00 06/19/19 10:03 Prevacid Solutab FEEDTUBE 30 mg QDAY [facility] Administration Methylprednisolone Sodium Succinate 60 mg 06/17/19 12:00 06/20/19 05:20 Solu-Medrol IV Not Given Q6HR [facility] Metoprolol Tartrate 2.5 mg 06/19/19 11:11 06/19/19 11:48 Metoprolol IV 2.5 mg Q4H PRN Administration HR>130 Multi-Ingred Cream/Lotion/Oil/Oint 1 applic 06/11/19 17:44 Artificial Tears Ophth Oint OU Q4HR PRN Dry Eye(s) Ondansetron HCl 4 mg 06/11/19 22:48 Zofran IV Q8H PRN Nausea And Vomiting Quetiapine Fumarate 300 mg 06/13/19 11:00 06/19/19 21:08 Seroquel PO 300 mg BID DOMINICK Administration Simple Syrup 15 ml 06/13/19 17:52 Simple Syrup FEEDTUBE PRN PRN Hypoglycemia Simple Syrup 30 ml 06/13/19 17:52 Simple Syrup FEEDTUBE PRN PRN Hypoglycemia Sodium Bicarbonate 325 mg 06/13/19 17:52 Sodium Bicarbonate FEEDTUBE PRN PRN For Clogged Feeding Tube Sodium Chloride 10 ml 06/12/19 10:00 06/19/19 21:09 Sodium Chloride Flush Syringe 10 Ml IV 10 ml BID DOMINICK Administration Sodium Chloride 10 ml 06/11/19 22:48 06/18/19 21:06 Sodium Chloride Flush Syringe 10 Ml IV 10 ml PRN PRN Administration LINE FLUSH Venlafaxine HCl 75 mg 06/13/19 14:00 06/19/19 21:09 Effexor PO 75 mg TID DOMINICK Administration Nutrition/Malnutrition Assess - Dietary Evaluation Nutrition/Malnutrition Findings: Nutrition Notes Start: 06/12/19 11:05 Freq: Status: Active Protocol: Document 06/16/19 13:28 LM (Rec: 06/16/19 13:45 LM [email or web address]) Nutrition Notes Initial or Follow up Reassessment Current Diagnosis COPD,Coronary Artery Disease, Hypertension,Heart Failure, Respiratory Failure Other Pertinent Diagnosis COPD exacerbation Current Diet Promote 1.0 at 60ml/hr Labs/Tests BG 165 Na 144 Pertinent Medications Humalog Solumedrol Height 5 ft Weight 74.843 kg [place] Body Weight (kg) 45.45 BMI 32.2 Weight Status Obese Subjective/Other Information Promote running at goal. Na in normal range. Percent of energy/protein needs met: 97%/99% Burn Absent Trauma Absent Current % PO Negligible Minimum of two criteria No #1 Nutrition Diagnosis Inadequate oral intake Diagnosis Progress(for reassessment Continues documentation) Is patient on ventilator? Yes Is Patient Ambulatory and/or Out of Bed No REE-([facility]-confined to bed) 1486.872 Calculation Used for Recommendations [facility] Additional Notes Pro needs 2g/kg IBW: 91g/day 1ml/kcal Nutrition Intervention Change Diet Order: Continue TF Nutrition Support: Promote 1.0 at 60ml/hr Flush 150 q4h for hypernatremia Flush 50ml q4h once resolved Kcal 1,440 Protein (gm) 90 Fluid (mL) 1,208 Goal #1 TF tolerance Goal #2 Meet at least 75% of energy and protein needs Anticipated Discharge Needs: Unable to identify at this time Follow-Up By: 06/21/19 Additional Comments F/U for TF tolerance
[2019-06-20] MEDS: DOCUSATE SODIUM 100 MG/10 ML ORAL LIQD PO SCH ×2 (09:56→21:24)
[2019-06-20] MEDS: VANCOMYCIN/NS 1 GM/250 ML 1 GM/250 ML BAG IV SCH ×2 (09:56→22:15)
[2019-06-20] MEDS: LANSOPRAZOLE 30 MG SOLUTAB FEEDTUBE SCH (09:59)
[2019-06-20] MEDS ORDERED: POLYETHYLENE GLYCOL 3350 17 GM POWDER PO ONE (10:00)
[2019-06-20] MEDS: AMIODARONE 200 MG TAB PO SCH (10:00)
[2019-06-20] MEDS: QUEtiapine 100 MG TAB PO SCH ×2 (10:00→21:24)
[2019-06-20] MEDS ORDERED: POLYETHYLENE GLYCOL 3350 17 GM POWDER PO PRN (14:00)
--- NOTE | 2019-06-20 14:31 | Progress Note ---
Assessment and Plan Acute and chronic hypoxic and hypercapnic respiratory failure: Acute exacerbation of COPD Tobacco use disorder/Nicotine dependence (on going) Hypernatremia History of coronary artery disease/CHF History of HTN Chronic narcotic dependence Chronic back pain Anxiety disorder History of depression; Obesity; BMI 32.2 - continue rate control per cardiology - continue daily SAT and SBT assessment as tolerated - continue supplemental oxygen with restrictive strategies acutely re: severe COPD (PaO2 of 60 with O2 sats 88-90% is acceptable) - VAP bundle addressed (aspiration precautions; HOB > 40 degrees) - continue bronchodilators with pulmonary hygiene per RT - continue airborne, droplet and contact isolation - limit daily CXR's - Avoid benzodiazepine's, reduce the possibility of delirium - Continue with fentanyl, titrate for RASS of 0 to -1 - Maintenance of sleep-wake cycle, avoid delirium - continue enteral nutritional support at goal rate as tolerated - Accuchecks with glycemic control per SSI for target blood glucose of 140-180 mg/dL while critically ill; avoid hypoglycemia - VTE prophylaxis (Lovenox) - Stress ulcer prophylaxis (Prevacid) - continue systemic Steroids - Empiric Antibiotics (Cefepime); de-escalate per ID rec's - Monitor hemodynamics closely - Avoid delirium; Avoid benzodiazepines - Nicotine withdrawal precautions, nicotine patch - In view of ongoing smoking, recurrent hospital admission, will need to re- address advance directives and goals of care, once the patient is able to be a part of that discussion. Will also address smoking cessation again, once she is able to be a part of that discussion - continue other care per attending / other senior sales consultant's .... re-evaluate in am & prn CONDITION: CRITICAL PROGNOSIS: GUARDED CODE STATUS: FULL CODE The high probability of a clinically significant, sudden or life-threatening deterioration of the respiratory, cardiovascular, neurology, endocrine system(s) required my full and direct attention, intervention and personal management. The aggregate critical care time was [35] minutes without overlap. Time includes spent on; [x] Data Review and interpretation [x] Patient assessment and monitoring of vital signs [x] Documentation [x] Medication orders and management Subjective Date of service: 06/20/19 Principal diagnosis: Ac and ch hypoxic & hypercapnic resp failure; AE-COPD; Tobacco use disorder Interval history: Patient is seen today for: Ac and ch hypoxic hypercapnic resp failure; AE-COPD; Tobacco use disorder/Nicotine dependence; Hypernatremia; HTN (hypotensive at presentation 0; Chronic narcotic dependence ; Chronic back pain; Anxiety disorder Seen and examined at bedside; 24-hour events reviewed; nursing and respiratory care staff consulted; no adverse overnight events reported to me; laying in bed; remains on MVS; remains a tenuous wean but has been so historically; await COVID-19 resdult; no emesis or overt aspiration Objective Vital Signs - 12hr 06/20/19 06/20/19 06/20/19 02:46 03:00 03:16 Temperature Pulse Rate 128 H 122 H 120 H Pulse Rate [ Bilateral] Pulse Rate [ Dorsalis Pedis] Pulse Rate [ From Monitor] Pulse Rate [ Radial] Respiratory 13 18 17 Rate Respiratory Rate [Bilateral ] Blood Pressure 148/52 148/52 147/64 O2 Sat by Pulse 95 94 99 Oximetry 06/20/19 06/20/19 06/20/19 03:30 03:46 04:00 Temperature 99.8 F H Pulse Rate 111 H 116 H 112 H Pulse Rate [ Bilateral] Pulse Rate [ 109 H Dorsalis Pedis] Pulse Rate [ 109 H From Monitor] Pulse Rate [ 109 H Radial] Respiratory 17 20 18 Rate Respiratory Rate [Bilateral ] Blood Pressure 147/64 125/70 126/74 O2 Sat by Pulse 95 94 95 Oximetry 06/20/19 06/20/19 06/20/19 04:16 04:30 04:39 Temperature Pulse Rate 124 H 114 H 113 H Pulse Rate [ Bilateral] Pulse Rate [ Dorsalis Pedis] Pulse Rate [ From Monitor] Pulse Rate [ Radial] Respiratory 19 22 Rate Respiratory Rate [Bilateral ] Blood Pressure 126/74 126/74 O2 Sat by Pulse 93 95 Oximetry 06/20/19 06/20/19 06/20/19 04:46 04:59 05:00 Temperature Pulse Rate 125 H 116 H 120 H Pulse Rate [ Bilateral] Pulse Rate [ Dorsalis Pedis] Pulse Rate [ From Monitor] Pulse Rate [ Radial] Respiratory 21 12 Rate Respiratory Rate [Bilateral ] Blood Pressure 133/76 133/82 133/76 O2 Sat by Pulse 94 93 100 Oximetry 06/20/19 06/20/19 06/20/19 05:16 05:19 05:30 Temperature Pulse Rate 112 H 109 H 111 H Pulse Rate [ Bilateral] Pulse Rate [ Dorsalis Pedis] Pulse Rate [ From Monitor] Pulse Rate [ Radial] Respiratory 12 15 Rate Respiratory Rate [Bilateral ] Blood Pressure 133/82 134/73 O2 Sat by Pulse 94 97 Oximetry 06/20/19 06/20/19 06/20/19 05:46 06:00 06:16 Temperature Pulse Rate 105 H 102 H 100 H Pulse Rate [ Bilateral] Pulse Rate [ Dorsalis Pedis] Pulse Rate [ From Monitor] Pulse Rate [ Radial] Respiratory 20 15 19 Rate Respiratory Rate [Bilateral ] Blood Pressure 133/82 123/68 134/73 O2 Sat by Pulse 96 96 96 Oximetry 06/20/19 06/20/19 06/20/19 06:30 06:46 07:00 Temperature Pulse Rate 97 H 97 H 92 H Pulse Rate [ Bilateral] Pulse Rate [ Dorsalis Pedis] Pulse Rate [ From Monitor] Pulse Rate [ Radial] Respiratory 20 12 17 Rate Respiratory Rate [Bilateral ] Blood Pressure 119/66 123/68 118/66 O2 Sat by Pulse 96 96 94 Oximetry 06/20/19 06/20/19 06/20/19 07:16 07:30 07:37 Temperature Pulse Rate 90 90 89 Pulse Rate [ 90 Bilateral] Pulse Rate [ Dorsalis Pedis] Pulse Rate [ From Monitor] Pulse Rate [ Radial] Respiratory 13 13 Rate Respiratory 18 Rate [Bilateral ] Blood Pressure 118/66 118/67 118/67 O2 Sat by Pulse 95 95 95 Oximetry 06/20/19 06/20/19 06/20/19 07:46 08:00 08:16 Temperature 101.8 F H Pulse Rate 98 H 90 127 H Pulse Rate [ Bilateral] Pulse Rate [ 90 Dorsalis Pedis] Pulse Rate [ 109 H From Monitor] Pulse Rate [ 109 H Radial] Respiratory 10 L 14 15 Rate Respiratory Rate [Bilateral ] Blood Pressure 118/66 111/59 118/67 O2 Sat by Pulse 93 98 84 Oximetry 06/20/19 06/20/19 06/20/19 08:30 08:46 09:00 Temperature Pulse Rate 130 H 127 H 129 H Pulse Rate [ Bilateral] Pulse Rate [ Dorsalis Pedis] Pulse Rate [ From Monitor] Pulse Rate [ Radial] Respiratory 14 17 13 Rate Respiratory Rate [Bilateral ] Blood Pressure 118/67 111/59 108/67 O2 Sat by Pulse 89 93 92 Oximetry 06/20/19 06/20/19 06/20/19 09:16 09:30 09:46 Temperature Pulse Rate 126 H 125 H 120 H Pulse Rate [ Bilateral] Pulse Rate [ Dorsalis Pedis] Pulse Rate [ From Monitor] Pulse Rate [ Radial] Respiratory 16 17 15 Rate Respiratory Rate [Bilateral ] Blood Pressure 108/67 109/62 108/67 O2 Sat by Pulse 93 95 95 Oximetry 06/20/19 06/20/19 06/20/19 10:00 10:16 10:30 Temperature Pulse Rate 117 H 115 H 115 H Pulse Rate [ Bilateral] Pulse Rate [ Dorsalis Pedis] Pulse Rate [ From Monitor] Pulse Rate [ Radial] Respiratory 16 16 17 Rate Respiratory Rate [Bilateral ] Blood Pressure 108/55 108/55 114/59 O2 Sat by Pulse 95 95 95 Oximetry 06/20/19 06/20/19 06/20/19 10:46 11:00 11:16 Temperature Pulse Rate 114 H 114 H 109 H Pulse Rate [ Bilateral] Pulse Rate [ Dorsalis Pedis] Pulse Rate [ From Monitor] Pulse Rate [ Radial] Respiratory 17 14 15 Rate Respiratory Rate [Bilateral ] Blood Pressure 114/59 102/53 102/53 O2 Sat by Pulse 96 97 97 Oximetry 06/20/19 06/20/19 06/20/19 11:30 11:46 11:54 Temperature Pulse Rate 109 H 109 H 109 H Pulse Rate [ Bilateral] Pulse Rate [ Dorsalis Pedis] Pulse Rate [ From Monitor] Pulse Rate [ Radial] Respiratory 17 15 Rate Respiratory Rate [Bilateral ] Blood Pressure 105/59 105/59 105/59 O2 Sat by Pulse 98 97 98 Oximetry 06/20/19 06/20/19 06/20/19 12:00 13:01 13:13 Temperature 100.3 F H Pulse Rate 107 H 107 H Pulse Rate [ 111 H Bilateral] Pulse Rate [ 109 H Dorsalis Pedis] Pulse Rate [ 109 H From Monitor] Pulse Rate [ 109 H Radial] Respiratory 17 Rate Respiratory 18 Rate [Bilateral ] Blood Pressure 106/56 115/54 O2 Sat by Pulse 97 Oximetry 06/20/19 13:30 Temperature Pulse Rate 105 H Pulse Rate [ Bilateral] Pulse Rate [ Dorsalis Pedis] Pulse Rate [ From Monitor] Pulse Rate [ Radial] Respiratory 14 Rate Respiratory Rate [Bilateral ] Blood Pressure 111/54 O2 Sat by Pulse 97 Oximetry Constitutional: no acute distress, other (elderly looking obese CF, normocephalic on MVS without signidficant dyssynchrony) Eyes: non-icteric ENT: oropharynx moist, other (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) Neck: supple, no lymphadenopathy, no JVD Effort: mildly labored Ascultation: Bilateral: diminished breath sounds, rhonchi Percussion: Bilateral: not dull Cardiovascular: regular rate and rhythm Gastrointestinal: normoactive bowel sounds, soft, non-tender, non-distended Integumentary: normal Extremities: no cyanosis, no edema, pulses normal, no ischemia or petechiae Neurologic: non-focal exam (grossly), pupils equal and round, unable to assess Psychiatric: other (Unable to assess re: AMS) CBC and BMP: 06/23/19 05:05 06/23/19 05:05 ABG, PT/INR, D-dimer: ABG ABG pH 7.391 pH Units (7.350-7.450) 06/20/19 05:30 ABG pCO2 55.4 mm Hg 06/20/19 05:30 ABG pO2 63.4 mm Hg (80.0-90.0) L 06/20/19 05:30 ABG O2 Saturation 91.8 % (95.0-99.0) L 06/20/19 05:30 PT/INR, D-dimer PT 13.0 Sec. (12.2-14.9) 06/11/19 18:03 INR 0.97 (0.87-1.13) 06/11/19 18:03 D-Dimer 1177.30 ng/mlDDU (0-234) H 06/19/19 14:14 Abnormal lab findings: Abnormal Labs 06/11/19 06/11/19 06/11/19 18:03 18:03 18:03 WBC MCH 25 L RDW 19.4 H Plt Count 124 L [place] % (Auto) 10.3 H Lymph # 1.1 L Seg Neutrophils % 74.4 H Seg Neuts % (Manual) Lymphocytes % (Manual) Seg Neutrophils # Man Lymphocytes # (Manual) D-Dimer ABG pH ABG pO2 ABG HCO3 ABG O2 Saturation ABG Base Excess ABG Hemoglobin Oxyhemoglobin Sodium 146 H Chloride Carbon Dioxide BUN 21 H Creatinine 0.4 L Glucose POC Glucose Calcium Magnesium 2.70 H Lactate Dehydrogenase CK-MB (CK-2) CK-MB (CK-2) Rel Index Albumin 3.5 L Ur Specific [place] Urine WBC (Auto) Salicylates 1.0 L Acetaminophen 06/11/19 06/11/19 06/11/19 18:03 18:59 23:22 WBC MCH RDW Plt Count [place] % (Auto) Lymph # Seg Neutrophils % Seg Neuts % (Manual) Lymphocytes % (Manual) Seg Neutrophils # Man Lymphocytes # (Manual) D-Dimer ABG pH 7.340 L ABG pO2 76.0 L ABG HCO3 34.6 H ABG O2 Saturation ABG Base Excess 7.1 H ABG Hemoglobin 10.9 L Oxyhemoglobin 91.6 L Sodium Chloride Carbon Dioxide BUN Creatinine Glucose POC Glucose Calcium Magnesium Lactate Dehydrogenase CK-MB (CK-2) 5.5 H CK-MB (CK-2) Rel Index 5.5 H Albumin Ur Specific [place] Urine WBC (Auto) Salicylates Acetaminophen < 5.0 L 06/12/19 06/12/19 06/12/19 00:29 02:04 04:20 WBC MCH RDW Plt Count [place] % (Auto) Lymph # Seg Neutrophils % Seg Neuts % (Manual) Lymphocytes % (Manual) Seg Neutrophils # Man Lymphocytes # (Manual) D-Dimer ABG pH 7.313 L ABG pO2 75.3 L ABG HCO3 29.9 H ABG O2 Saturation 94.3 L ABG Base Excess ABG Hemoglobin 10.8 L Oxyhemoglobin 92.0 L Sodium Chloride Carbon Dioxide BUN Creatinine Glucose POC Glucose 107 H Calcium Magnesium Lactate Dehydrogenase CK-MB (CK-2) CK-MB (CK-2) Rel Index Albumin Ur Specific [place] Urine WBC (Auto) 30.0 H Salicylates Acetaminophen 06/12/19 06/12/19 06/12/19 05:09 05:09 05:09 WBC MCH 25 L RDW 19.4 H Plt Count 114 L [place] % (Auto) Lymph # Seg Neutrophils % Seg Neuts % (Manual) 91.0 H Lymphocytes % (Manual) 7.0 L Seg Neutrophils # Man Lymphocytes # (Manual) 0.4 L D-Dimer ABG pH ABG pO2 ABG HCO3 ABG O2 Saturation ABG Base Excess ABG Hemoglobin Oxyhemoglobin Sodium 147 H Chloride 107.4 H Carbon Dioxide BUN 19 H Creatinine 0.4 L Glucose 110 H POC Glucose Calcium 8.2 L Magnesium Lactate Dehydrogenase CK-MB (CK-2) CK-MB (CK-2) Rel Index 5.4 H Albumin Ur Specific [place] Urine WBC (Auto) Salicylates Acetaminophen 06/12/19 06/12/19 06/13/19 06:42 23:21 04:14 WBC MCH RDW Plt Count [place] % (Auto) Lymph # Seg Neutrophils % Seg Neuts % (Manual) Lymphocytes % (Manual) Seg Neutrophils # Man Lymphocytes # (Manual) D-Dimer ABG pH ABG pO2 62.6 L ABG HCO3 29.6 H ABG O2 Saturation 91.0 L ABG Base Excess ABG Hemoglobin 10.3 L Oxyhemoglobin 89.0 L Sodium Chloride Carbon Dioxide BUN Creatinine Glucose POC Glucose 108 H 106 H Calcium Magnesium Lactate Dehydrogenase CK-MB (CK-2) CK-MB (CK-2) Rel Index Albumin Ur Specific [place] Urine WBC (Auto) Salicylates Acetaminophen 06/13/19 06/13/19 06/13/19 04:54 04:54 12:20 WBC MCH 25 L RDW 19.2 H Plt Count 119 L [place] % (Auto) Lymph # Seg Neutrophils % Seg Neuts % (Manual) 95.0 H Lymphocytes % (Manual) 2.0 L Seg Neutrophils # Man 9.1 H Lymphocytes # (Manual) 0.2 L D-Dimer ABG pH ABG pO2 ABG HCO3 ABG O2 Saturation ABG Base Excess ABG Hemoglobin Oxyhemoglobin Sodium 149 H Chloride 111.4 H Carbon Dioxide BUN 26 H Creatinine 0.5 L Glucose 107 H POC Glucose 125 H Calcium Magnesium Lactate Dehydrogenase CK-MB (CK-2) CK-MB (CK-2) Rel Index Albumin Ur Specific [place] Urine WBC (Auto) Salicylates Acetaminophen 06/13/19 06/14/19 06/14/19 17:25 03:44 04:55 WBC MCH RDW Plt Count [place] % (Auto) Lymph # Seg Neutrophils % Seg Neuts % (Manual) Lymphocytes % (Manual) Seg Neutrophils # Man Lymphocytes # (Manual) D-Dimer ABG pH ABG pO2 58.9 L ABG HCO3 29.5 H ABG O2 Saturation 88.7 L ABG Base Excess ABG Hemoglobin 10.2 L Oxyhemoglobin 86.7 L Sodium 150 H Chloride 110.4 H Carbon Dioxide BUN 20 H Creatinine 0.4 L Glucose 105 H POC Glucose 128 H Calcium Magnesium Lactate Dehydrogenase CK-MB (CK-2) CK-MB (CK-2) Rel Index Albumin Ur Specific [place] Urine WBC (Auto) Salicylates Acetaminophen 06/14/19 06/14/19 06/14/19 05:37 11:58 21:00 WBC MCH RDW Plt Count [place] % (Auto) Lymph # Seg Neutrophils % Seg Neuts % (Manual) Lymphocytes % (Manual) Seg Neutrophils # Man Lymphocytes # (Manual) D-Dimer ABG pH 7.321 L ABG pO2 60.0 L ABG HCO3 31.4 H ABG O2 Saturation 87.3 L ABG Base Excess 4.1 H ABG Hemoglobin 10.6 L Oxyhemoglobin 84.8 L Sodium Chloride Carbon Dioxide BUN Creatinine Glucose POC Glucose 111 H 116 H Calcium Magnesium Lactate Dehydrogenase CK-MB (CK-2) CK-MB (CK-2) Rel Index Albumin Ur Specific [place] Urine WBC (Auto) Salicylates Acetaminophen 06/15/19 06/15/19 06/15/19 00:22 03:25 05:08 WBC MCH RDW Plt Count [place] % (Auto) Lymph # Seg Neutrophils % Seg Neuts % (Manual) Lymphocytes % (Manual) Seg Neutrophils # Man Lymphocytes # (Manual) D-Dimer ABG pH 7.317 L ABG pO2 ABG HCO3 31.5 H ABG O2 Saturation ABG Base Excess 4.1 H ABG Hemoglobin 10.4 L Oxyhemoglobin 94.1 L Sodium Chloride Carbon Dioxide 31 H BUN 23 H Creatinine 0.3 L Glucose 120 H POC Glucose 108 H Calcium Magnesium Lactate Dehydrogenase CK-MB (CK-2) CK-MB (CK-2) Rel Index Albumin Ur Specific [place] Urine WBC (Auto) Salicylates Acetaminophen 06/15/19 06/15/19 06/15/19 05:24 11:41 17:38 WBC MCH RDW Plt Count [place] % (Auto) Lymph # Seg Neutrophils % Seg Neuts % (Manual) Lymphocytes % (Manual) Seg Neutrophils # Man Lymphocytes # (Manual) D-Dimer ABG pH ABG pO2 ABG HCO3 ABG O2 Saturation ABG Base Excess ABG Hemoglobin Oxyhemoglobin Sodium Chloride Carbon Dioxide BUN Creatinine Glucose POC Glucose 111 H 154 H 115 H Calcium Magnesium Lactate Dehydrogenase CK-MB (CK-2) CK-MB (CK-2) Rel Index Albumin Ur Specific [place] Urine WBC (Auto) Salicylates Acetaminophen 06/15/19 06/16/19 06/16/19 23:31 03:40 05:18 WBC MCH RDW Plt Count [place] % (Auto) Lymph # Seg Neutrophils % Seg Neuts % (Manual) Lymphocytes % (Manual) Seg Neutrophils # Man Lymphocytes # (Manual) D-Dimer ABG pH 7.313 L ABG pO2 96.4 H ABG HCO3 35.2 H ABG O2 Saturation ABG Base Excess 7.2 H ABG Hemoglobin 10.5 L Oxyhemoglobin 94.9 L Sodium Chloride Carbon Dioxide BUN Creatinine Glucose POC Glucose 161 H 158 H Calcium Magnesium Lactate Dehydrogenase CK-MB (CK-2) CK-MB (CK-2) Rel Index Albumin Ur Specific [place] Urine WBC (Auto) Salicylates Acetaminophen 06/16/19 06/16/19 06/16/19 05:45 05:45 12:06 WBC 12.1 H MCH 25 L RDW 18.7 H Plt Count 93 L [place] % (Auto) Lymph # Seg Neutrophils % Seg Neuts % (Manual) 97.0 H Lymphocytes % (Manual) 0 L Seg Neutrophils # Man 11.7 H Lymphocytes # (Manual) 0.0 L D-Dimer ABG pH ABG pO2 ABG HCO3 ABG O2 Saturation ABG Base Excess ABG Hemoglobin Oxyhemoglobin Sodium Chloride Carbon Dioxide 33 H BUN 25 H Creatinine 0.3 L Glucose 165 H POC Glucose 178 H Calcium Magnesium Lactate Dehydrogenase CK-MB (CK-2) CK-MB (CK-2) Rel Index Albumin Ur Specific [place] Urine WBC (Auto) Salicylates Acetaminophen 06/16/19 06/16/19 06/17/19 17:55 23:42 03:35 WBC MCH RDW Plt Count [place] % (Auto) Lymph # Seg Neutrophils % Seg Neuts % (Manual) Lymphocytes % (Manual) Seg Neutrophils # Man Lymphocytes # (Manual) D-Dimer ABG pH ABG pO2 73.2 L ABG HCO3 35.2 H ABG O2 Saturation 94.5 L ABG Base Excess 8.8 H ABG Hemoglobin 10.7 L Oxyhemoglobin 92.6 L Sodium Chloride Carbon Dioxide BUN Creatinine Glucose POC Glucose 180 H 160 H Calcium Magnesium Lactate Dehydrogenase CK-MB (CK-2) CK-MB (CK-2) Rel Index Albumin Ur Specific [place] Urine WBC (Auto) Salicylates Acetaminophen 06/17/19 06/17/19 06/17/19 04:57 09:45 11:59 WBC 11.7 H MCH 25 L RDW 18.2 H Plt Count 79 L [place] % (Auto) Lymph # Seg Neutrophils % Seg Neuts % (Manual) 96.0 H Lymphocytes % (Manual) 3.0 L Seg Neutrophils # Man 11.2 H Lymphocytes # (Manual) 0.4 L D-Dimer ABG pH ABG pO2 ABG HCO3 ABG O2 Saturation ABG Base Excess ABG Hemoglobin Oxyhemoglobin Sodium Chloride Carbon Dioxide 34 H BUN 31 H Creatinine 0.3 L Glucose 153 H POC Glucose 163 H Calcium Magnesium Lactate Dehydrogenase CK-MB (CK-2) CK-MB (CK-2) Rel Index Albumin Ur Specific [place] Urine WBC (Auto) Salicylates Acetaminophen 06/17/19 06/17/19 06/18/19 17:33 23:39 04:25 WBC MCH RDW Plt Count [place] % (Auto) Lymph # Seg Neutrophils % Seg Neuts % (Manual) Lymphocytes % (Manual) Seg Neutrophils # Man Lymphocytes # (Manual) D-Dimer ABG pH ABG pO2 72.9 L ABG HCO3 33.8 H ABG O2 Saturation 94.6 L ABG Base Excess 7.3 H ABG Hemoglobin 11.1 L Oxyhemoglobin 92.8 L Sodium Chloride Carbon Dioxide BUN Creatinine Glucose POC Glucose 186 H 161 H Calcium Magnesium Lactate Dehydrogenase CK-MB (CK-2) CK-MB (CK-2) Rel Index Albumin Ur Specific [place] Urine WBC (Auto) Salicylates Acetaminophen 06/18/19 06/18/19 06/18/19 05:23 05:23 05:37 WBC 13.2 H MCH 25 L RDW 18.3 H Plt Count 81 L [place] % (Auto) Lymph # Seg Neutrophils % Seg Neuts % (Manual) 96.0 H Lymphocytes % (Manual) 4.0 L Seg Neutrophils # Man 12.7 H Lymphocytes # (Manual) 0.5 L D-Dimer ABG pH ABG pO2 ABG HCO3 ABG O2 Saturation ABG Base Excess ABG Hemoglobin Oxyhemoglobin Sodium Chloride Carbon Dioxide 34 H BUN 36 H Creatinine 0.3 L Glucose 162 H POC Glucose 177 H Calcium Magnesium Lactate Dehydrogenase CK-MB (CK-2) CK-MB (CK-2) Rel Index Albumin Ur Specific [place] Urine WBC (Auto) Salicylates Acetaminophen 06/18/19 06/18/19 06/18/19 12:26 18:17 23:51 WBC MCH RDW Plt Count [place] % (Auto) Lymph # Seg Neutrophils % Seg Neuts % (Manual) Lymphocytes % (Manual) Seg Neutrophils # Man Lymphocytes # (Manual) D-Dimer ABG pH ABG pO2 ABG HCO3 ABG O2 Saturation ABG Base Excess ABG Hemoglobin Oxyhemoglobin Sodium Chloride Carbon Dioxide BUN Creatinine Glucose POC Glucose 156 H 134 H 153 H Calcium Magnesium Lactate Dehydrogenase CK-MB (CK-2) CK-MB (CK-2) Rel Index Albumin Ur Specific [place] Urine WBC (Auto) Salicylates Acetaminophen 06/19/19 06/19/19 06/19/19 05:58 12:12 12:40 WBC MCH RDW Plt Count [place] % (Auto) Lymph # Seg Neutrophils % Seg Neuts % (Manual) Lymphocytes % (Manual) Seg Neutrophils # Man Lymphocytes # (Manual) D-Dimer ABG pH ABG pO2 ABG HCO3 ABG O2 Saturation ABG Base Excess ABG Hemoglobin Oxyhemoglobin Sodium Chloride Carbon Dioxide BUN Creatinine Glucose POC Glucose 143 H 186 H Calcium Magnesium Lactate Dehydrogenase CK-MB (CK-2) CK-MB (CK-2) Rel Index Albumin Ur Specific [place] 1.032 H Urine WBC (Auto) Salicylates Acetaminophen 06/19/19 06/19/19 06/19/19 14:14 14:14 16:40 WBC MCH RDW Plt Count [place] % (Auto) Lymph # Seg Neutrophils % Seg Neuts % (Manual) Lymphocytes % (Manual) Seg Neutrophils # Man Lymphocytes # (Manual) D-Dimer 1177.30 H ABG pH ABG pO2 54.2 L ABG HCO3 32.1 H ABG O2 Saturation 87.8 L ABG Base Excess 6.3 H ABG Hemoglobin 11.2 L Oxyhemoglobin 85.9 L Sodium Chloride Carbon Dioxide BUN Creatinine Glucose POC Glucose Calcium Magnesium Lactate Dehydrogenase 290 H CK-MB (CK-2) CK-MB (CK-2) Rel Index Albumin Ur Specific [place] Urine WBC (Auto) Salicylates Acetaminophen 06/19/19 06/19/19 06/20/19 17:00 23:50 05:14 WBC MCH RDW Plt Count [place] % (Auto) Lymph # Seg Neutrophils % Seg Neuts % (Manual) Lymphocytes % (Manual) Seg Neutrophils # Man Lymphocytes # (Manual) D-Dimer ABG pH ABG pO2 ABG HCO3 ABG O2 Saturation ABG Base Excess ABG Hemoglobin Oxyhemoglobin Sodium Chloride Carbon Dioxide BUN Creatinine Glucose POC Glucose 137 H 148 H 164 H Calcium Magnesium Lactate Dehydrogenase CK-MB (CK-2) CK-MB (CK-2) Rel Index Albumin Ur Specific [place] Urine WBC (Auto) Salicylates Acetaminophen 06/20/19 06/20/19 06/20/19 05:30 05:40 05:40 WBC 16.4 H MCH 25 L RDW 18.3 H Plt Count 79 L [place] % (Auto) Lymph # Seg Neutrophils % Seg Neuts % (Manual) Lymphocytes % (Manual) Seg Neutrophils # Man Lymphocytes # (Manual) D-Dimer ABG pH ABG pO2 63.4 L ABG HCO3 32.9 H ABG O2 Saturation 91.8 L ABG Base Excess 6.2 H ABG Hemoglobin 10.4 L Oxyhemoglobin 89.7 L Sodium Chloride Carbon Dioxide 31 H BUN 25 H Creatinine 0.3 L Glucose 150 H POC Glucose Calcium Magnesium Lactate Dehydrogenase CK-MB (CK-2) CK-MB (CK-2) Rel Index Albumin Ur Specific [place] Urine WBC (Auto) Salicylates Acetaminophen 06/20/19 12:35 WBC MCH RDW Plt Count [place] % (Auto) Lymph # Seg Neutrophils % Seg Neuts % (Manual) Lymphocytes % (Manual) Seg Neutrophils # Man Lymphocytes # (Manual) D-Dimer ABG pH ABG pO2 ABG HCO3 ABG O2 Saturation ABG Base Excess ABG Hemoglobin Oxyhemoglobin Sodium Chloride Carbon Dioxide BUN Creatinine Glucose POC Glucose 162 H Calcium Magnesium Lactate Dehydrogenase CK-MB (CK-2) CK-MB (CK-2) Rel Index Albumin Ur Specific [place] Urine WBC (Auto) Salicylates Acetaminophen Chest x-ray: pending Allied health notes reviewed: nursing
[2019-06-20] MEDS: DIGOXIN 0.5 MG/2 ML INJ IV SCH (17:24)
[2019-06-21] MEDS: INSULIN LISPRO 100 UNIT/ML SUB-Q SCH ×4 (00:07→17:53)
[2019-06-21] MEDS: methylPREDNISolone Sod Succinate 125 MG/2 ML INJ IV SCH ×4 (00:10→18:39)
[2019-06-21] MEDS: fentaNYL DRIP Premix 2,000 MCG/100 ML BAG IV SCH ×3 (04:01→22:24)
[2019-06-21] MEDS: CEFEPIME/NS 1 GM/100 ML 1 GM/100 ML BAG IV SCH ×3 (05:36→21:09)
[2019-06-21] MEDS: dilTIAZem 30 MG TAB PO SCH ×3 (05:37→21:08)
[2019-06-21 05:39] LABS: Mean Corpuscular HGB Conc 30 % (30-34); Mean Corpuscular Volume 81 fl (79-97); Red Blood Count 3.96 M/mm3 (3.65-5.03); Red Cell Distribution Width 17.9 % (13.2-15.2)
[2019-06-21 05:40] LABS: Hematocrit 32.2 % (30.3-42.9); Hemoglobin 9.7 gm/dl (10.1-14.3); Platelet Count 85 K/mm3 (140-440)
[2019-06-21 05:58] LABS: BUN/Creatinine Ratio 77; Blood Urea Nitrogen 23 mg/dL (7-17); Calcium 8.7 mg/dL (8.4-10.2); Hemolysis Index 5
[2019-06-21] MEDS: BUDESONIDE 0.5 MG/2 ML NEBU IH SCH ×2 (07:44→20:11)
[2019-06-21] MEDS: IPRATROPIUM/ALBUTEROL SULFATE 3 ML AMPUL.NEB IH SCH ×3 (07:44→20:11)
[2019-06-21] MEDS: ARFORMOTEROL 15 MCG/2 ML NEBU IH SCH ×2 (07:44→20:12)
[2019-06-21] MEDS: fentaNYL 100 MCG/2 ML INJ IV PRN (08:00)
[2019-06-21] MEDS: VENLAFAXINE 75 MG TAB PO SCH ×3 (08:50→20:01)
[2019-06-21] MEDS: ALPRAZolam 0.25 MG TAB PO PRN (08:56)
[2019-06-21] MEDS: VANCOMYCIN/NS 1 GM/250 ML 1 GM/250 ML BAG IV SCH (09:09)
[2019-06-21] MEDS: AMIODARONE 200 MG TAB PO SCH (09:09)
[2019-06-21] MEDS: LANSOPRAZOLE 30 MG SOLUTAB FEEDTUBE SCH (09:18)
[2019-06-21] MEDS: QUEtiapine 100 MG TAB PO SCH ×2 (09:19→21:08)
[2019-06-21] MEDS: DOCUSATE SODIUM 100 MG/10 ML ORAL LIQD PO SCH ×2 (09:46→21:08)
--- NOTE | 2019-06-21 09:55 | Progress Note ---
Assessment and Plan Acute and chronic hypoxic and hypercapnic respiratory failure on MVS Acute exacerbation of COPD Pseudomonas pneumonia Thrombocytopenia History of coronary artery disease/CHF History of depression; Obesity; BMI 32.2 Chronic narcotic dependence Tobacco use disorder/Nicotine dependence On going fevers on Vanc/Cefepime with desaturations CXR to follow up on LL infiltrate- if it is worsening or persistent will plan on Bronchoscopy for dedicated cultures Continue with SCDs for VTE prophylaxis, platelets at 85. If the platelet count continues to improve will plan on starting VTE prophylaxis- high risk patient -Continue with MVS, Lung protective strategies, monitor airway pressures -Adjust minute ventilation as indicated for better gas exchange -VAP bundle addressed -Aspiration precautions, HOB>40 -Daily assessment for readiness for weaning; SAT and SBT - Fentanyl and Lorazepam infusions titrate to RASS -1 -Antibiotics for severe AE-COPD -Steroids with slow taper -Bronchodilators with pulmonary hygiene -Stress ulcer prophylaxis, VTE prophylaxis -Continue enteric nutritional support -Continue to monitor glycemic control, with target blood glucose 140-180 mg/dL while critically ill. -Avoid hypoglycemia - Wean supplemental oxygen for target O2 sat's > 90% -ABG and CXR in am - Avoid benzodiazepines to reduce the possibility of delirium - prn analgesia per CPOT score - Mobility protocol , off loading and skin assessment per protocol for pressure ulcer prevention - Monitor hemodynamics closely -Nicotine withdrawal precautions -Smoking cessation counselling once she is extubated and able to participate in the discussion -Chronic home medications as indicated - continue other care per attending / other consultants CONDITION: CRITICAL PROGNOSIS: GUARDED CODE STATUS: FULL CODE Life threatening condition from acute and chronic hypoxic-hypercapnic respiratory failure with ventilator dependency Mortality/Morbidity- High Complexity of decision making- High The high probability of a clinically significant, sudden or life-threatening deterioration of the [respiratory, ] system(s) required my full and direct attention, intervention and personal management. The aggregate critical care time was [31] minutes without overlap. Time includes spent on; [x] Data Review and interpretation [x] Patient assessment and monitoring of vital signs [x] Documentation [x] Medication orders and management Subjective Date of service: 06/21/19 Principal diagnosis: Ac and ch hypoxic & hypercapnic resp failure; AE-COPD; Tobacco use disorder Interval history: Patient is seen today for: Ac and ch hypoxic hypercapnic resp failure; AE-COPD; Tobacco use disorder/Nicotine dependence; Hypernatremia; HTN (hypotensive at presentation 0; Chronic narcotic dependence ; Chronic back pain; Anxiety disorder Seen and examined at bedside; 24-hour events reviewed; nursing and respiratory care staff consulted; no adverse overnight events reported to me; laying in bed; AMS is persistent; remains hypoxemic on MVS; episodes of desaturation this monring. High grade fever with Tmax of 101.8F COVID swab negative yesterday Tolerated PSV 2 days ago for 4 hours on 31/07, and tolerated it yesterday for 2 hours. ABG yesterday 7.39/55/63/91 on AC 16/450/6/40% Objective Vital Signs - 12hr 06/20/19 06/20/19 06/20/19 22:00 22:16 22:30 Temperature Pulse Rate 106 H 104 H 100 H Pulse Rate [ Bilateral] Pulse Rate [ From Monitor] Respiratory 14 14 13 Rate Respiratory Rate [Bilateral ] Blood Pressure 114/61 114/66 111/63 O2 Sat by Pulse 94 95 95 Oximetry 06/20/19 06/20/19 06/20/19 22:46 23:00 23:10 Temperature Pulse Rate 99 H 96 H 98 H Pulse Rate [ Bilateral] Pulse Rate [ From Monitor] Respiratory 13 15 13 Rate Respiratory Rate [Bilateral ] Blood Pressure 111/63 108/59 108/59 O2 Sat by Pulse 94 96 94 Oximetry 06/20/19 06/20/19 06/20/19 23:16 23:30 23:46 Temperature Pulse Rate 97 H 94 H 95 H Pulse Rate [ Bilateral] Pulse Rate [ From Monitor] Respiratory 15 16 11 L Rate Respiratory Rate [Bilateral ] Blood Pressure 108/59 108/63 108/63 O2 Sat by Pulse 95 97 96 Oximetry 06/21/19 06/21/19 06/21/19 00:00 00:16 00:30 Temperature 98.3 F Pulse Rate 93 H 83 80 Pulse Rate [ Bilateral] Pulse Rate [ 91 H From Monitor] Respiratory 13 13 14 Rate Respiratory Rate [Bilateral ] Blood Pressure 103/58 103/58 103/58 O2 Sat by Pulse 97 97 100 Oximetry 06/21/19 06/21/19 06/21/19 00:46 01:00 01:16 Temperature Pulse Rate 82 88 78 Pulse Rate [ Bilateral] Pulse Rate [ From Monitor] Respiratory 13 15 13 Rate Respiratory Rate [Bilateral ] Blood Pressure 103/58 111/60 111/60 O2 Sat by Pulse 97 97 95 Oximetry 06/21/19 06/21/19 06/21/19 01:30 01:46 02:00 Temperature Pulse Rate 85 79 77 Pulse Rate [ Bilateral] Pulse Rate [ From Monitor] Respiratory 10 L 13 14 Rate Respiratory Rate [Bilateral ] Blood Pressure 108/59 108/59 108/55 O2 Sat by Pulse 96 97 96 Oximetry 06/21/19 06/21/19 06/21/19 02:16 02:30 02:46 Temperature Pulse Rate 77 74 108 H Pulse Rate [ Bilateral] Pulse Rate [ From Monitor] Respiratory 12 15 16 Rate Respiratory Rate [Bilateral ] Blood Pressure 108/55 107/55 108/55 O2 Sat by Pulse 96 96 91 Oximetry 06/21/19 06/21/19 06/21/19 03:00 03:16 03:30 Temperature Pulse Rate 96 H 94 H 91 H Pulse Rate [ Bilateral] Pulse Rate [ From Monitor] Respiratory 20 18 17 Rate Respiratory Rate [Bilateral ] Blood Pressure 108/55 107/55 126/68 O2 Sat by Pulse 93 93 98 Oximetry 06/21/19 06/21/19 06/21/19 03:46 04:00 04:16 Temperature 99.2 F Pulse Rate 81 79 76 Pulse Rate [ Bilateral] Pulse Rate [ 78 From Monitor] Respiratory 17 14 17 Rate Respiratory Rate [Bilateral ] Blood Pressure 126/68 110/56 126/68 O2 Sat by Pulse 95 96 97 Oximetry 06/21/19 06/21/19 06/21/19 04:30 04:46 05:00 Temperature Pulse Rate 77 75 72 Pulse Rate [ Bilateral] Pulse Rate [ From Monitor] Respiratory 16 16 16 Rate Respiratory Rate [Bilateral ] Blood Pressure 126/68 98/50 105/54 O2 Sat by Pulse 95 96 97 Oximetry 06/21/19 06/21/19 06/21/19 05:16 05:30 05:37 Temperature Pulse Rate 70 70 68 Pulse Rate [ Bilateral] Pulse Rate [ From Monitor] Respiratory 16 17 Rate Respiratory Rate [Bilateral ] Blood Pressure 105/54 109/54 109/54 O2 Sat by Pulse 95 96 Oximetry 06/21/19 06/21/19 06/21/19 05:46 06:00 06:16 Temperature Pulse Rate 67 66 66 Pulse Rate [ Bilateral] Pulse Rate [ From Monitor] Respiratory 15 12 13 Rate Respiratory Rate [Bilateral ] Blood Pressure 109/54 110/53 110/53 O2 Sat by Pulse 96 95 95 Oximetry 06/21/19 06/21/19 06/21/19 06:30 06:46 07:00 Temperature Pulse Rate 68 68 66 Pulse Rate [ Bilateral] Pulse Rate [ From Monitor] Respiratory 14 16 15 Rate Respiratory Rate [Bilateral ] Blood Pressure 100/53 100/53 102/52 O2 Sat by Pulse 93 95 91 Oximetry 06/21/19 06/21/19 06/21/19 07:16 07:30 07:44 Temperature Pulse Rate 68 66 67 Pulse Rate [ 70 Bilateral] Pulse Rate [ From Monitor] Respiratory 19 16 Rate Respiratory 18 Rate [Bilateral ] Blood Pressure 102/52 99/54 99/54 O2 Sat by Pulse 89 95 91 Oximetry 06/21/19 06/21/19 06/21/19 07:46 08:00 08:16 Temperature 97.9 F Pulse Rate 67 70 67 Pulse Rate [ Bilateral] Pulse Rate [ 78 From Monitor] Respiratory 18 16 19 Rate Respiratory Rate [Bilateral ] Blood Pressure 99/54 97/49 97/49 O2 Sat by Pulse 90 93 88 Oximetry 06/21/19 06/21/19 06/21/19 08:30 08:46 09:00 Temperature Pulse Rate 124 H 125 H 113 H Pulse Rate [ Bilateral] Pulse Rate [ From Monitor] Respiratory 19 17 17 Rate Respiratory Rate [Bilateral ] Blood Pressure 97/49 97/49 118/75 O2 Sat by Pulse 84 86 100 Oximetry 06/21/19 06/21/19 06/21/19 09:15 09:30 09:45 Temperature Pulse Rate 112 H 111 H 112 H Pulse Rate [ Bilateral] Pulse Rate [ From Monitor] Respiratory 19 19 20 Rate Respiratory Rate [Bilateral ] Blood Pressure 112/63 104/59 100/59 O2 Sat by Pulse 89 90 88 Oximetry Constitutional: no acute distress, other (elderly looking obese CF, normoce phalic on MVS without signidficant dyssynchrony) Eyes: non-icteric ENT: oropharynx moist, other (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) Neck: supple, no lymphadenopathy, no JVD Effort: mildly labored Ascultation: Bilateral: diminished breath sounds, rhonchi Percussion: Bilateral: not dull Cardiovascular: regular rate and rhythm Gastrointestinal: normoactive bowel sounds, soft, non-tender, non-distended Integumentary: normal Extremities: no cyanosis, no edema, pulses normal, no ischemia or petechiae Neurologic: non-focal exam (grossly), pupils equal and round, unable to assess Psychiatric: other (Unable to assess re: AMS) CBC and BMP: 06/21/19 04:58 06/21/19 04:58 ABG, PT/INR, D-dimer: ABG ABG pH 7.391 pH Units (7.350-7.450) 06/20/19 05:30 ABG pCO2 55.4 mm Hg 06/20/19 05:30 ABG pO2 63.4 mm Hg (80.0-90.0) L 06/20/19 05:30 ABG O2 Saturation 91.8 % (95.0-99.0) L 06/20/19 05:30 PT/INR, D-dimer PT 13.0 Sec. (12.2-14.9) 06/11/19 18:03 INR 0.97 (0.87-1.13) 06/11/19 18:03 D-Dimer 1177.30 ng/mlDDU (0-234) H 06/19/19 14:14 Abnormal lab findings: Abnormal Labs 06/11/19 06/11/19 06/11/19 18:03 18:03 18:03 WBC Hgb MCH 25 L RDW 19.4 H Plt Count 124 L [place] % (Auto) 10.3 H Lymph # 1.1 L Seg Neutrophils % 74.4 H Seg Neuts % (Manual) Lymphocytes % (Manual) Seg Neutrophils # Man Lymphocytes # (Manual) D-Dimer ABG pH ABG pO2 ABG HCO3 ABG O2 Saturation ABG Base Excess ABG Hemoglobin Oxyhemoglobin Sodium 146 H Chloride Carbon Dioxide BUN 21 H Creatinine 0.4 L Glucose POC Glucose Calcium Magnesium 2.70 H Lactate Dehydrogenase CK-MB (CK-2) CK-MB (CK-2) Rel Index Albumin 3.5 L Ur Specific [place] Urine WBC (Auto) Salicylates 1.0 L Acetaminophen 06/11/19 06/11/19 06/11/19 18:03 18:59 23:22 WBC Hgb MCH RDW Plt Count [place] % (Auto) Lymph # Seg Neutrophils % Seg Neuts % (Manual) Lymphocytes % (Manual) Seg Neutrophils # Man Lymphocytes # (Manual) D-Dimer ABG pH 7.340 L ABG pO2 76.0 L ABG HCO3 34.6 H ABG O2 Saturation ABG Base Excess 7.1 H ABG Hemoglobin 10.9 L Oxyhemoglobin 91.6 L Sodium Chloride Carbon Dioxide BUN Creatinine Glucose POC Glucose Calcium Magnesium Lactate Dehydrogenase CK-MB (CK-2) 5.5 H CK-MB (CK-2) Rel Index 5.5 H Albumin Ur Specific [place] Urine WBC (Auto) Salicylates Acetaminophen < 5.0 L 06/12/19 06/12/19 06/12/19 00:29 02:04 04:20 WBC Hgb MCH RDW Plt Count [place] % (Auto) Lymph # Seg Neutrophils % Seg Neuts % (Manual) Lymphocytes % (Manual) Seg Neutrophils # Man Lymphocytes # (Manual) D-Dimer ABG pH 7.313 L ABG pO2 75.3 L ABG HCO3 29.9 H ABG O2 Saturation 94.3 L ABG Base Excess ABG Hemoglobin 10.8 L Oxyhemoglobin 92.0 L Sodium Chloride Carbon Dioxide BUN Creatinine Glucose POC Glucose 107 H Calcium Magnesium Lactate Dehydrogenase CK-MB (CK-2) CK-MB (CK-2) Rel Index Albumin Ur Specific [place] Urine WBC (Auto) 30.0 H Salicylates Acetaminophen 06/12/19 06/12/19 06/12/19 05:09 05:09 05:09 WBC Hgb MCH 25 L RDW 19.4 H Plt Count 114 L [place] % (Auto) Lymph # Seg Neutrophils % Seg Neuts % (Manual) 91.0 H Lymphocytes % (Manual) 7.0 L Seg Neutrophils # Man Lymphocytes # (Manual) 0.4 L D-Dimer ABG pH ABG pO2 ABG HCO3 ABG O2 Saturation ABG Base Excess ABG Hemoglobin Oxyhemoglobin Sodium 147 H Chloride 107.4 H Carbon Dioxide BUN 19 H Creatinine 0.4 L Glucose 110 H POC Glucose Calcium 8.2 L Magnesium Lactate Dehydrogenase CK-MB (CK-2) CK-MB (CK-2) Rel Index 5.4 H Albumin Ur Specific [place] Urine WBC (Auto) Salicylates Acetaminophen 06/12/19 06/12/19 06/13/19 06:42 23:21 04:14 WBC Hgb MCH RDW Plt Count [place] % (Auto) Lymph # Seg Neutrophils % Seg Neuts % (Manual) Lymphocytes % (Manual) Seg Neutrophils # Man Lymphocytes # (Manual) D-Dimer ABG pH ABG pO2 62.6 L ABG HCO3 29.6 H ABG O2 Saturation 91.0 L ABG Base Excess ABG Hemoglobin 10.3 L Oxyhemoglobin 89.0 L Sodium Chloride Carbon Dioxide BUN Creatinine Glucose POC Glucose 108 H 106 H Calcium Magnesium Lactate Dehydrogenase CK-MB (CK-2) CK-MB (CK-2) Rel Index Albumin Ur Specific [place] Urine WBC (Auto) Salicylates Acetaminophen 06/13/19 06/13/19 06/13/19 04:54 04:54 12:20 WBC Hgb MCH 25 L RDW 19.2 H Plt Count 119 L [place] % (Auto) Lymph # Seg Neutrophils % Seg Neuts % (Manual) 95.0 H Lymphocytes % (Manual) 2.0 L Seg Neutrophils # Man 9.1 H Lymphocytes # (Manual) 0.2 L D-Dimer ABG pH ABG pO2 ABG HCO3 ABG O2 Saturation ABG Base Excess ABG Hemoglobin Oxyhemoglobin Sodium 149 H Chloride 111.4 H Carbon Dioxide BUN 26 H Creatinine 0.5 L Glucose 107 H POC Glucose 125 H Calcium Magnesium Lactate Dehydrogenase CK-MB (CK-2) CK-MB (CK-2) Rel Index Albumin Ur Specific [place] Urine WBC (Auto) Salicylates Acetaminophen 06/13/19 06/14/19 06/14/19 17:25 03:44 04:55 WBC Hgb MCH RDW Plt Count [place] % (Auto) Lymph # Seg Neutrophils % Seg Neuts % (Manual) Lymphocytes % (Manual) Seg Neutrophils # Man Lymphocytes # (Manual) D-Dimer ABG pH ABG pO2 58.9 L ABG HCO3 29.5 H ABG O2 Saturation 88.7 L ABG Base Excess ABG Hemoglobin 10.2 L Oxyhemoglobin 86.7 L Sodium 150 H Chloride 110.4 H Carbon Dioxide BUN 20 H Creatinine 0.4 L Glucose 105 H POC Glucose 128 H Calcium Magnesium Lactate Dehydrogenase CK-MB (CK-2) CK-MB (CK-2) Rel Index Albumin Ur Specific [place] Urine WBC (Auto) Salicylates Acetaminophen 06/14/19 06/14/19 06/14/19 05:37 11:58 21:00 WBC Hgb MCH RDW Plt Count [place] % (Auto) Lymph # Seg Neutrophils % Seg Neuts % (Manual) Lymphocytes % (Manual) Seg Neutrophils # Man Lymphocytes # (Manual) D-Dimer ABG pH 7.321 L ABG pO2 60.0 L ABG HCO3 31.4 H ABG O2 Saturation 87.3 L ABG Base Excess 4.1 H ABG Hemoglobin 10.6 L Oxyhemoglobin 84.8 L Sodium Chloride Carbon Dioxide BUN Creatinine Glucose POC Glucose 111 H 116 H Calcium Magnesium Lactate Dehydrogenase CK-MB (CK-2) CK-MB (CK-2) Rel Index Albumin Ur Specific [place] Urine WBC (Auto) Salicylates Acetaminophen 06/15/19 06/15/19 06/15/19 00:22 03:25 05:08 WBC Hgb MCH RDW Plt Count [place] % (Auto) Lymph # Seg Neutrophils % Seg Neuts % (Manual) Lymphocytes % (Manual) Seg Neutrophils # Man Lymphocytes # (Manual) D-Dimer ABG pH 7.317 L ABG pO2 ABG HCO3 31.5 H ABG O2 Saturation ABG Base Excess 4.1 H ABG Hemoglobin 10.4 L Oxyhemoglobin 94.1 L Sodium Chloride Carbon Dioxide 31 H BUN 23 H Creatinine 0.3 L Glucose 120 H POC Glucose 108 H Calcium Magnesium Lactate Dehydrogenase CK-MB (CK-2) CK-MB (CK-2) Rel Index Albumin Ur Specific [place] Urine WBC (Auto) Salicylates Acetaminophen 06/15/19 06/15/19 06/15/19 05:24 11:41 17:38 WBC Hgb MCH RDW Plt Count [place] % (Auto) Lymph # Seg Neutrophils % Seg Neuts % (Manual) Lymphocytes % (Manual) Seg Neutrophils # Man Lymphocytes # (Manual) D-Dimer ABG pH ABG pO2 ABG HCO3 ABG O2 Saturation ABG Base Excess ABG Hemoglobin Oxyhemoglobin Sodium Chloride Carbon Dioxide BUN Creatinine Glucose POC Glucose 111 H 154 H 115 H Calcium Magnesium Lactate Dehydrogenase CK-MB (CK-2) CK-MB (CK-2) Rel Index Albumin Ur Specific [place] Urine WBC (Auto) Salicylates Acetaminophen 06/15/19 06/16/19 06/16/19 23:31 03:40 05:18 WBC Hgb MCH RDW Plt Count [place] % (Auto) Lymph # Seg Neutrophils % Seg Neuts % (Manual) Lymphocytes % (Manual) Seg Neutrophils # Man Lymphocytes # (Manual) D-Dimer ABG pH 7.313 L ABG pO2 96.4 H ABG HCO3 35.2 H ABG O2 Saturation ABG Base Excess 7.2 H ABG Hemoglobin 10.5 L Oxyhemoglobin 94.9 L Sodium Chloride Carbon Dioxide BUN Creatinine Glucose POC Glucose 161 H 158 H Calcium Magnesium Lactate Dehydrogenase CK-MB (CK-2) CK-MB (CK-2) Rel Index Albumin Ur Specific [place] Urine WBC (Auto) Salicylates Acetaminophen 06/16/19 06/16/19 06/16/19 05:45 05:45 12:06 WBC 12.1 H Hgb MCH 25 L RDW 18.7 H Plt Count 93 L [place] % (Auto) Lymph # Seg Neutrophils % Seg Neuts % (Manual) 97.0 H Lymphocytes % (Manual) 0 L Seg Neutrophils # Man 11.7 H Lymphocytes # (Manual) 0.0 L D-Dimer ABG pH ABG pO2 ABG HCO3 ABG O2 Saturation ABG Base Excess ABG Hemoglobin Oxyhemoglobin Sodium Chloride Carbon Dioxide 33 H BUN 25 H Creatinine 0.3 L Glucose 165 H POC Glucose 178 H Calcium Magnesium Lactate Dehydrogenase CK-MB (CK-2) CK-MB (CK-2) Rel Index Albumin Ur Specific [place] Urine WBC (Auto) Salicylates Acetaminophen 06/16/19 06/16/19 06/17/19 17:55 23:42 03:35 WBC Hgb MCH RDW Plt Count [place] % (Auto) Lymph # Seg Neutrophils % Seg Neuts % (Manual) Lymphocytes % (Manual) Seg Neutrophils # Man Lymphocytes # (Manual) D-Dimer ABG pH ABG pO2 73.2 L ABG HCO3 35.2 H ABG O2 Saturation 94.5 L ABG Base Excess 8.8 H ABG Hemoglobin 10.7 L Oxyhemoglobin 92.6 L Sodium Chloride Carbon Dioxide BUN Creatinine Glucose POC Glucose 180 H 160 H Calcium Magnesium Lactate Dehydrogenase CK-MB (CK-2) CK-MB (CK-2) Rel Index Albumin Ur Specific [place] Urine WBC (Auto) Salicylates Acetaminophen 06/17/19 06/17/19 06/17/19 04:57 09:45 11:59 WBC 11.7 H Hgb MCH 25 L RDW 18.2 H Plt Count 79 L [place] % (Auto) Lymph # Seg Neutrophils % Seg Neuts % (Manual) 96.0 H Lymphocytes % (Manual) 3.0 L Seg Neutrophils # Man 11.2 H Lymphocytes # (Manual) 0.4 L D-Dimer ABG pH ABG pO2 ABG HCO3 ABG O2 Saturation ABG Base Excess ABG Hemoglobin Oxyhemoglobin Sodium Chloride Carbon Dioxide 34 H BUN 31 H Creatinine 0.3 L Glucose 153 H POC Glucose 163 H Calcium Magnesium Lactate Dehydrogenase CK-MB (CK-2) CK-MB (CK-2) Rel Index Albumin Ur Specific [place] Urine WBC (Auto) Salicylates Acetaminophen 06/17/19 06/17/19 06/18/19 17:33 23:39 04:25 WBC Hgb MCH RDW Plt Count [place] % (Auto) Lymph # Seg Neutrophils % Seg Neuts % (Manual) Lymphocytes % (Manual) Seg Neutrophils # Man Lymphocytes # (Manual) D-Dimer ABG pH ABG pO2 72.9 L ABG HCO3 33.8 H ABG O2 Saturation 94.6 L ABG Base Excess 7.3 H ABG Hemoglobin 11.1 L Oxyhemoglobin 92.8 L Sodium Chloride Carbon Dioxide BUN Creatinine Glucose POC Glucose 186 H 161 H Calcium Magnesium Lactate Dehydrogenase CK-MB (CK-2) CK-MB (CK-2) Rel Index Albumin Ur Specific [place] Urine WBC (Auto) Salicylates Acetaminophen 06/18/19 06/18/19 06/18/19 05:23 05:23 05:37 WBC 13.2 H Hgb MCH 25 L RDW 18.3 H Plt Count 81 L [place] % (Auto) Lymph # Seg Neutrophils % Seg Neuts % (Manual) 96.0 H Lymphocytes % (Manual) 4.0 L Seg Neutrophils # Man 12.7 H Lymphocytes # (Manual) 0.5 L D-Dimer ABG pH ABG pO2 ABG HCO3 ABG O2 Saturation ABG Base Excess ABG Hemoglobin Oxyhemoglobin Sodium Chloride Carbon Dioxide 34 H BUN 36 H Creatinine 0.3 L Glucose 162 H POC Glucose 177 H Calcium Magnesium Lactate Dehydrogenase CK-MB (CK-2) CK-MB (CK-2) Rel Index Albumin Ur Specific [place] Urine WBC (Auto) Salicylates Acetaminophen 06/18/19 06/18/19 06/18/19 12:26 18:17 23:51 WBC Hgb MCH RDW Plt Count [place] % (Auto) Lymph # Seg Neutrophils % Seg Neuts % (Manual) Lymphocytes % (Manual) Seg Neutrophils # Man Lymphocytes # (Manual) D-Dimer ABG pH ABG pO2 ABG HCO3 ABG O2 Saturation ABG Base Excess ABG Hemoglobin Oxyhemoglobin Sodium Chloride Carbon Dioxide BUN Creatinine Glucose POC Glucose 156 H 134 H 153 H Calcium Magnesium Lactate Dehydrogenase CK-MB (CK-2) CK-MB (CK-2) Rel Index Albumin Ur Specific [place] Urine WBC (Auto) Salicylates Acetaminophen 06/19/19 06/19/19 06/19/19 05:58 12:12 12:40 WBC Hgb MCH RDW Plt Count [place] % (Auto) Lymph # Seg Neutrophils % Seg Neuts % (Manual) Lymphocytes % (Manual) Seg Neutrophils # Man Lymphocytes # (Manual) D-Dimer ABG pH ABG pO2 ABG HCO3 ABG O2 Saturation ABG Base Excess ABG Hemoglobin Oxyhemoglobin Sodium Chloride Carbon Dioxide BUN Creatinine Glucose POC Glucose 143 H 186 H Calcium Magnesium Lactate Dehydrogenase CK-MB (CK-2) CK-MB (CK-2) Rel Index Albumin Ur Specific [place] 1.032 H Urine WBC (Auto) Salicylates Acetaminophen 06/19/19 06/19/19 06/19/19 14:14 14:14 16:40 WBC Hgb MCH RDW Plt Count [place] % (Auto) Lymph # Seg Neutrophils % Seg Neuts % (Manual) Lymphocytes % (Manual) Seg Neutrophils # Man Lymphocytes # (Manual) D-Dimer 1177.30 H ABG pH ABG pO2 54.2 L ABG HCO3 32.1 H ABG O2 Saturation 87.8 L ABG Base Excess 6.3 H ABG Hemoglobin 11.2 L Oxyhemoglobin 85.9 L Sodium Chloride Carbon Dioxide BUN Creatinine Glucose POC Glucose Calcium Magnesium Lactate Dehydrogenase 290 H CK-MB (CK-2) CK-MB (CK-2) Rel Index Albumin Ur Specific [place] Urine WBC (Auto) Salicylates Acetaminophen 06/19/19 06/19/19 06/20/19 17:00 23:50 05:14 WBC Hgb MCH RDW Plt Count [place] % (Auto) Lymph # Seg Neutrophils % Seg Neuts % (Manual) Lymphocytes % (Manual) Seg Neutrophils # Man Lymphocytes # (Manual) D-Dimer ABG pH ABG pO2 ABG HCO3 ABG O2 Saturation ABG Base Excess ABG Hemoglobin Oxyhemoglobin Sodium Chloride Carbon Dioxide BUN Creatinine Glucose POC Glucose 137 H 148 H 164 H Calcium Magnesium Lactate Dehydrogenase CK-MB (CK-2) CK-MB (CK-2) Rel Index Albumin Ur Specific [place] Urine WBC (Auto) Salicylates Acetaminophen 06/20/19 06/20/19 06/20/19 05:30 05:40 05:40 WBC 16.4 H Hgb MCH 25 L RDW 18.3 H Plt Count 79 L [place] % (Auto) Lymph # Seg Neutrophils % Seg Neuts % (Manual) Lymphocytes % (Manual) Seg Neutrophils # Man Lymphocytes # (Manual) D-Dimer ABG pH ABG pO2 63.4 L ABG HCO3 32.9 H ABG O2 Saturation 91.8 L ABG Base Excess 6.2 H ABG Hemoglobin 10.4 L Oxyhemoglobin 89.7 L Sodium Chloride Carbon Dioxide 31 H BUN 25 H Creatinine 0.3 L Glucose 150 H POC Glucose Calcium Magnesium Lactate Dehydrogenase CK-MB (CK-2) CK-MB (CK-2) Rel Index Albumin Ur Specific [place] Urine WBC (Auto) Salicylates Acetaminophen 06/20/19 06/20/19 06/21/19 12:35 18:32 00:12 WBC Hgb MCH RDW Plt Count [place] % (Auto) Lymph # Seg Neutrophils % Seg Neuts % (Manual) Lymphocytes % (Manual) Seg Neutrophils # Man Lymphocytes # (Manual) D-Dimer ABG pH ABG pO2 ABG HCO3 ABG O2 Saturation ABG Base Excess ABG Hemoglobin Oxyhemoglobin Sodium Chloride Carbon Dioxide BUN Creatinine Glucose POC Glucose 162 H 159 H 144 H Calcium Magnesium Lactate Dehydrogenase CK-MB (CK-2) CK-MB (CK-2) Rel Index Albumin Ur Specific [place] Urine WBC (Auto) Salicylates Acetaminophen 06/21/19 06/21/19 06/21/19 04:58 04:58 05:42 WBC 13.9 H Hgb 9.7 L MCH 25 L RDW 17.9 H Plt Count 85 L [place] % (Auto) Lymph # Seg Neutrophils % Seg Neuts % (Manual) Lymphocytes % (Manual) Seg Neutrophils # Man Lymphocytes # (Manual) D-Dimer ABG pH ABG pO2 ABG HCO3 ABG O2 Saturation ABG Base Excess ABG Hemoglobin Oxyhemoglobin Sodium Chloride Carbon Dioxide 31 H BUN 23 H Creatinine 0.3 L Glucose 142 H POC Glucose 137 H Calcium Magnesium Lactate Dehydrogenase CK-MB (CK-2) CK-MB (CK-2) Rel Index Albumin Ur Specific [place] Urine WBC (Auto) Salicylates Acetaminophen Chest x-ray: image reviewed (Peristent left lower lobe infiltrate) Allied health notes reviewed: RT
--- NOTE | 2019-06-21 10:37 | Progress Note ---
Assessment and Plan Paroxysmal Atrial flutter/afib/MAT currently in sinus rhythm on amiodarone, diltiazem and digoxin for suppression. Dig level at 1.0 on 06/19/19. not on anticoagulation secondary to history of melena and anemia. Respiratory failure s/p intubation COPD exacerbation on home oxygen History of CT/Coronary artery disease EF 45-50% by echo 08/2018 [facility] at [facility]: [employer] of the RCA recommend for medical therapy. She did undergo PCI of the mid LAD using bare metal stent. Recommend: Continue oral Cardizem, Amiodarone and Digoxin as tolerated for paroxysmal atrial flutter. Subjective Date of service: 06/21/19 Principal diagnosis: Ac and ch hypoxic & hypercapnic resp failure; AE-COPD; Tobacco use disorder Interval history: Stable sinus rhythm on telemetry. Objective Vital Signs Temp Pulse Pulse Pulse Pulse Pulse Resp 06/21/19 09:45 112 H 20 06/21/19 09:30 111 H 19 06/21/19 09:15 112 H 19 06/21/19 09:00 113 H 17 06/21/19 08:46 125 H 17 06/21/19 08:30 124 H 19 06/21/19 08:16 67 19 06/21/19 08:00 97.9 F 70 78 16 06/21/19 07:46 67 18 06/21/19 07:44 67 70 06/21/19 07:30 66 16 06/21/19 07:16 68 19 06/21/19 07:00 66 15 06/21/19 06:46 68 16 06/21/19 06:30 68 14 06/21/19 06:16 66 13 06/21/19 06:00 66 12 06/21/19 05:46 67 15 06/21/19 05:37 68 06/21/19 05:30 70 17 06/21/19 05:16 70 16 06/21/19 05:00 72 16 06/21/19 04:46 75 16 06/21/19 04:30 77 16 06/21/19 04:16 76 17 06/21/19 04:00 99.2 F 79 78 14 06/21/19 03:46 81 17 06/21/19 03:30 91 H 17 06/21/19 03:16 94 H 18 06/21/19 03:00 96 H 20 06/21/19 02:46 108 H 16 06/21/19 02:30 74 15 06/21/19 02:16 77 12 06/21/19 02:00 77 14 06/21/19 01:46 79 13 06/21/19 01:30 85 10 L 06/21/19 01:16 78 13 06/21/19 01:00 88 15 06/21/19 00:46 82 13 06/21/19 00:30 80 14 06/21/19 00:16 83 13 06/21/19 00:00 98.3 F 93 H 91 H 13 06/20/19 23:46 95 H 11 L 06/20/19 23:30 94 H 16 06/20/19 23:16 97 H 15 06/20/19 23:10 98 H 13 06/20/19 23:00 96 H 15 06/20/19 22:46 99 H 13 06/20/19 22:30 100 H 13 06/20/19 22:16 104 H 14 06/20/19 22:00 106 H 14 06/20/19 21:46 108 H 16 06/20/19 21:30 113 H 18 06/20/19 21:25 116 H 06/20/19 21:16 119 H 18 06/20/19 21:00 112 H 13 06/20/19 20:56 112 H 118 H 06/20/19 20:46 100 H 22 06/20/19 20:30 112 H 12 06/20/19 20:16 105 H 15 06/20/19 20:00 100.3 F H 108 H 108 H 18 06/20/19 19:46 102 H 14 06/20/19 19:30 109 H 18 06/20/19 19:16 109 H 14 06/20/19 19:00 106 H 16 06/20/19 18:46 109 H 17 06/20/19 18:30 106 H 21 06/20/19 18:16 105 H 14 06/20/19 18:00 108 H 19 06/20/19 17:46 110 H 16 06/20/19 17:30 112 H 13 06/20/19 17:24 111 H 06/20/19 17:16 111 H 15 06/20/19 17:00 114 H 15 06/20/19 16:46 118 H 17 06/20/19 16:30 130 H 13 06/20/19 16:16 116 H 17 06/20/19 16:07 113 H 20 06/20/19 16:00 100.7 F H 115 H 109 H 109 H 109 H 21 06/20/19 15:46 117 H 14 06/20/19 15:30 120 H 14 06/20/19 15:16 117 H 15 06/20/19 15:00 120 H 18 06/20/19 14:46 127 H 15 06/20/19 14:30 122 H 18 06/20/19 14:16 105 H 15 06/20/19 14:00 106 H 15 06/20/19 13:46 104 H 14 06/20/19 13:30 107 H 16 06/20/19 13:16 110 H 16 06/20/19 13:13 111 H 06/20/19 13:01 107 H 06/20/19 13:00 108 H 16 06/20/19 12:46 106 H 15 06/20/19 12:30 107 H 18 06/20/19 12:16 108 H 16 06/20/19 12:00 100.3 F H 107 H 109 H 109 H 109 H 17 06/20/19 11:54 109 H 06/20/19 11:46 109 H 15 06/20/19 11:30 109 H 17 06/20/19 11:16 109 H 15 06/20/19 11:00 114 H 14 06/20/19 10:46 114 H 17 Resp BP Pulse Ox 06/21/19 09:45 100/59 88 06/21/19 09:30 104/59 90 06/21/19 09:15 112/63 89 06/21/19 09:00 118/75 100 06/21/19 08:46 97/49 86 06/21/19 08:30 97/49 84 06/21/19 08:16 97/49 88 06/21/19 08:00 97/49 93 06/21/19 07:46 99/54 90 06/21/19 07:44 18 99/54 91 06/21/19 07:30 99/54 95 06/21/19 07:16 102/52 89 06/21/19 07:00 102/52 91 06/21/19 06:46 100/53 95 06/21/19 06:30 100/53 93 06/21/19 06:16 110/53 95 06/21/19 06:00 110/53 95 06/21/19 05:46 109/54 96 06/21/19 05:37 109/54 06/21/19 05:30 109/54 96 06/21/19 05:16 105/54 95 06/21/19 05:00 105/54 97 06/21/19 04:46 98/50 96 06/21/19 04:30 126/68 95 06/21/19 04:16 126/68 97 06/21/19 04:00 110/56 96 06/21/19 03:46 126/68 95 06/21/19 03:30 126/68 98 06/21/19 03:16 107/55 93 06/21/19 03:00 108/55 93 06/21/19 02:46 108/55 91 06/21/19 02:30 107/55 96 06/21/19 02:16 108/55 96 06/21/19 02:00 108/55 96 06/21/19 01:46 108/59 97 06/21/19 01:30 108/59 96 06/21/19 01:16 111/60 95 06/21/19 01:00 111/60 97 06/21/19 00:46 103/58 97 06/21/19 00:30 103/58 100 06/21/19 00:16 103/58 97 06/21/19 00:00 103/58 97 06/20/19 23:46 108/63 96 06/20/19 23:30 108/63 97 06/20/19 23:16 108/59 95 06/20/19 23:10 108/59 94 06/20/19 23:00 108/59 96 06/20/19 22:46 111/63 94 06/20/19 22:30 111/63 95 06/20/19 22:16 114/66 95 05 22:00 114/61 94 06/20/19 21:46 108/55 94 05 21:30 108/55 95 05 21:25 114/66 05 21:16 114/66 94 05/03/20 21:00 114/66 100 05/0320 20:56 18 114/56 96 0520 20:46 147/72 97 05/0320 20:30 120/74 95 0520 20:16 120/74 96 [id number] 20:00 120/74 96 0520 19:46 120/74 97 05/0320 19:30 120/74 95 0520 19:16 124/73 96 0520 19:00 124/73 97 0520 18:46 128/67 95 0520 18:30 128/67 95 0520 18:16 120/69 97 05 18:00 120/69 96 05 17:46 117/67 97 05 17:30 117/67 95 06/20/19 17:24 120/69 0520 17:16 114/60 95 05 17:00 114/60 95 06/20/19 16:46 121/73 93 0520 16:30 121/73 88 06/20/19 16:16 121/73 94 05 16:07 116/74 94 06/20/19 16:00 121/73 94 06/20/19 15:46 116/74 93 05 15:30 116/74 93 06/20/19 15:16 116/67 93 0520 15:00 116/67 92 06/20/19 14:46 112/64 92 05 14:30 111/54 93 06/20/19 14:16 111/54 97 05 14:00 111/54 97 05 13:46 110/52 96 0520 13:30 110/52 95 0520 13:16 115/54 99 05 13:13 18 05 13:01 115/54 05 13:00 115/54 98 05 12:46 112/54 98 [id number] 12:30 112/54 98 0520 12:16 106/56 98 05 12:00 106/56 97 05 11:54 105/59 98 06/20/19 11:46 105/59 97 06/20/19 11:30 105/59 98 06/20/19 11:16 102/53 97 06/20/19 11:00 102/53 97 06/20/19 10:46 114/59 96 - Physical Examination General: Other (intubated on the vent) Cardiac: Positive: Reg Rate and Rhythm - Labs and Meds CBC 06/21/19 Range/Units 04:58 WBC 13.9 H (4.5-11.0) K/mm3 RBC 3.96 (3.65-5.03) M/mm3 Hgb 9.7 L (10.1-14.3) gm/dl Hct 32.2 (30.3-42.9) % Plt Count 85 L (140-440) K/mm3 Comprehensive Metabolic Panel 06/21/19 Range/Units 04:58 Sodium 137 (137-145) mmol/L Potassium 4.9 (3.6-5.0) mmol/L Chloride 99.4 (98-107) mmol/L Carbon Dioxide 31 H (22-30) mmol/L BUN 23 H (7-17) mg/dL Creatinine 0.3 L (0.7-1.2) mg/dL Glucose 142 H (65-100) mg/dL Calcium 8.7 (8.4-10.2) mg/dL - Allied health notes Allied health notes reviewed: nursing
--- NOTE | 2019-06-21 10:59 | Progress Note ---
Assessment and Plan Assessment and plan: 59-year-old female patient with significant history of hypertension GERD depression COPD coronary artery disease CHF was admitted through emergency room with acute hypoxic hypercapnic respiratory failure requiring intubation and ventilatory support. Admitted to ICU evaluated by pulmonary critical, cardiology for A. fib flutter with rapid ventricular rate, started on Cardizem and amiodarone. Not a candidate for anticoagulation due to history of severe GI bleeding. Patient had mild hypotension, improved with holding, Blood pressure and diuretic meds, closely monitor Intubated on vent, wean as tolerated and extubate, Sputum cultures positive for Pseudomonas, continue cefepime Imaging personally reviewed: Chest x-ray: Left basilar effusion, previous x-rays with bibasilar opacities --Severe sepsis with shock COVID-19 was ruled out. Continue vancomycin and cefepime empirically pending new cultures, ID consulted. Sputum growing pseudomonas aeruginosa. --Acute hypoxic and hypercapnic respiratory failure: Requiring intubation and ventilatory support Nebulizers, IV steroids, IV antibiotics inhalation steroids Pulmonary critical following, supportive care Wean as tolerated and extubate --Acute exacerbation of COPD : Nebulizers, tapering doses steroids --Left lung basilar density; pneumonia Continue empiric antibiotics follow cultures Sputum cultures positive for Pseudomonas Continue cefepime --Paroxysmal A. fib/flutter; RVR On amiodarone, digoxin and Cardizem Closely monitor, cardiology following-digoxin adjusted to 0.125 mg every other day per cardiology they also reduced amiodarone 200 mg day No chronic anticoagulation due to history of GI bleed --History of coronary artery disease/CHF Low-dose Lasix, continue other cardiac meds --Hypernatremia; resolved monitor sodium levels --History of depression; Resume antidepressive medications --Ongoing tobacco use; Will prenatal genetic counselor smoking cessation when patient is more stable Nicotine patch as needed --Obesity; BMI 32.2 Patient needs weight reduction when medically stable Thrombocytopenia -- monitor --Tube feeding diet; per dietary recommendations --DVT prophylaxis; Lovenox --Full CODE STATUS Restraints in place Patient is critically ill with poor prognosis Closely monitor the patient and adjust management as needed Follow it solutions sales consultant recommendations The high probability of a clinically significant, sudden or life threatening deterioration of the [respiratory, CVS] system(s) required my full and direct attention, intervention and personal management. The aggregate critical care time was [33] minutes. This time is in addition to time spent performing reported procedures but includes the following: [x] Data Review and interpretation [x] Patient assessment and monitoring of vital signs [x] Documentation [x] Medication orders and management Critical care time 35 minutes Monitor closely and adjust management as needed History Interval history: Patient seen and examined, remains on Mechanical ventilation, no new fever today. Hospitalist Physical - Physical exam Narrative exam: General appearance: Present: On mechanical ventilation, obese, other (Intubated on ventilatory support sedated) - EENT Eyes: Present: PERRL. Absent: scleral icterus - Neck Neck: Present: supple, normal ROM - Respiratory Respiratory effort: normal Respiratory: bilateral: diminished, rhonchi, negative: rales, wheezing - Cardiovascular Rhythm: irregularly irregular Heart Sounds: Present: S1 & S2 - Extremities Extremities: no ischemia Extremity abnormal: edema - Abdominal General gastrointestinal: soft, non-tender, non-distended, normal bowel sounds - Integumentary Integumentary: Present: clear, warm, edema - Psychiatric Psychiatric: other (Intubated on vent) - Neurologic Neurologic: other (Intubated on vent) awakens and follows some commands - Constitutional Vitals: Temp Pulse Resp BP Pulse Ox 97.9 F 112 H 20 100/59 88 06/21/19 08:00 06/21/19 09:45 06/21/19 09:45 06/21/19 09:45 06/21/19 09:45 General appearance: Present: no acute distress, well-nourished, obese, other (Intubated on ventilatory support sedated) Results - Labs CBC & Chem 7: 06/21/19 04:58 06/21/19 04:58 Labs: Laboratory Last Values WBC 13.9 K/mm3 (4.5-11.0) H 06/21/19 04:58 RBC 3.96 M/mm3 (3.65-5.03) 06/21/19 04:58 Hgb 9.7 gm/dl (10.1-14.3) L 06/21/19 04:58 Hct 32.2 % (30.3-42.9) 06/21/19 04:58 MCV 81 fl (79-97) 06/21/19 04:58 MCH 25 pg (28-32) L 06/21/19 04:58 MCHC 30 % (30-34) 06/21/19 04:58 RDW 17.9 % (13.2-15.2) H 06/21/19 04:58 Plt Count 85 K/mm3 (140-440) L 06/21/19 04:58 Lymph % (Auto) 13.7 % (13.4-35.0) 06/11/19 18:03 Moody % (Auto) 10.3 % (0.0-7.3) H 06/11/19 18:03 Eos % (Auto) 0.8 % (0.0-4.3) 06/11/19 18:03 Baso % (Auto) 0.8 % (0.0-1.8) 06/11/19 18:03 Lymph # 1.1 K/mm3 (1.2-5.4) L 06/11/19 18:03 Moody # 0.8 K/mm3 (0.0-0.8) 06/11/19 18:03 Eos # 0.1 K/mm3 (0.0-0.4) 06/11/19 18:03 Baso # 0.1 K/mm3 (0.0-0.1) 06/11/19 18:03 Add Manual Diff Complete 06/18/19 05:23 Total Counted 100 06/18/19 05:23 Seg Neutrophils % Die Grinder 06/18/19 05:23 Seg Neuts % (Manual) 96.0 % (40.0-70.0) H 06/18/19 05:23 Band Neutrophils % 0 % 06/18/19 05:23 Lymphocytes % (Manual) 4.0 % (13.4-35.0) L 06/18/19 05:23 Reactive Lymphs % (Man) 0 % 06/18/19 05:23 Monocytes % (Manual) 0 % (0.0-7.3) 06/18/19 05:23 Eosinophils % (Manual) 0 % (0.0-4.3) 06/18/19 05:23 Basophils % (Manual) 0 % (0.0-1.8) 06/18/19 05:23 Metamyelocytes % 0 % 06/18/19 05:23 Myelocytes % 0 % 06/18/19 05:23 Promyelocytes % 0 % 06/18/19 05:23 Blast Cells % 0 % 06/18/19 05:23 Nucleated RBC % Not Reportable 06/18/19 05:23 Seg Neutrophils # 6.0 K/mm3 (1.8-7.7) 06/11/19 18:03 Seg Neutrophils # Man 12.7 K/mm3 (1.8-7.7) H 06/18/19 05:23 Band Neutrophils # 0.0 K/mm3 06/18/19 05:23 Lymphocytes # (Manual) 0.5 K/mm3 (1.2-5.4) L 06/18/19 05:23 Abs React Lymphs (Man) 0.0 K/mm3 06/18/19 05:23 Monocytes # (Manual) 0.0 K/mm3 (0.0-0.8) 06/18/19 05:23 Eosinophils # (Manual) 0.0 K/mm3 (0.0-0.4) 06/18/19 05:23 Basophils # (Manual) 0.0 K/mm3 (0.0-0.1) 06/18/19 05:23 Metamyelocytes # 0.0 K/mm3 06/18/19 05:23 Myelocytes # 0.0 K/mm3 06/18/19 05:23 Promyelocytes # 0.0 K/mm3 06/18/19 05:23 Blast Cells # 0.0 K/mm3 06/18/19 05:23 WBC Morphology Not Reportable 06/18/19 05:23 Hypersegmented Neuts Not Reportable 06/18/19 05:23 Hyposegmented Neuts Not Reportable 06/18/19 05:23 Hypogranular Neuts Not Reportable 06/18/19 05:23 Smudge Cells Not Reportable 06/18/19 05:23 Toxic Granulation Not Reportable 06/18/19 05:23 Toxic Vacuolation Not Reportable 06/18/19 05:23 Dohle Bodies Not Reportable 06/18/19 05:23 Pelger-Huet Anomaly Not Reportable 06/18/19 05:23 Neha Rods Not Reportable 06/18/19 05:23 Platelet Estimate Consistent w auto 06/18/19 05:23 Clumped Platelets Not Reportable 06/18/19 05:23 Plt Clumps, EDTA Not Reportable 06/18/19 05:23 Large Platelets Not Reportable 06/18/19 05:23 Giant Platelets Not Reportable 06/18/19 05:23 Platelet Satelliting Not Reportable 06/18/19 05:23 Plt Morphology Comment Not Reportable 06/18/19 05:23 RBC Morphology Not Reportable 06/18/19 05:23 Dimorphic RBCs Not Reportable 06/18/19 05:23 Polychromasia Not Reportable 06/18/19 05:23 Hypochromasia Few 06/18/19 05:23 Poikilocytosis Not Reportable 06/18/19 05:23 Anisocytosis Few 06/18/19 05:23 Microcytosis Not Reportable 06/18/19 05:23 Macrocytosis Not Reportable 06/18/19 05:23 Spherocytes Not Reportable 06/18/19 05:23 Pappenheimer Bodies Not Reportable 06/18/19 05:23 Sickle Cells Not Reportable 06/18/19 05:23 Target Cells Not Reportable 06/18/19 05:23 Tear Drop Cells Not Reportable 06/18/19 05:23 Ovalocytes Not Reportable 06/18/19 05:23 Helmet Cells Not Reportable 06/18/19 05:23 Benoit-Alabaster Bodies Not Reportable 06/18/19 05:23 [place] Rings Not Reportable 06/18/19 05:23 Damien Cells Not Reportable 06/18/19 05:23 Bite Cells Not Reportable 06/18/19 05:23 Crenated Cell Not Reportable 06/18/19 05:23 Elliptocytes Not Reportable 06/18/19 05:23 Acanthocytes (Spur) Not Reportable 06/18/19 05:23 Rouleaux Not Reportable 06/18/19 05:23 Hemoglobin C Crystals Not Reportable 06/18/19 05:23 Schistocytes Few 06/18/19 05:23 Malaria parasites Not Reportable 06/18/19 05:23 Hernan Bodies Not Reportable 06/18/19 05:23 Hem Pathologist Commnt No 06/18/19 05:23 PT 13.0 Sec. (12.2-14.9) 06/11/19 18:03 INR 0.97 (0.87-1.13) 06/11/19 18:03 D-Dimer 1177.30 ng/mlDDU (0-234) H 06/19/19 14:14 ABG pH 7.391 pH Units (7.350-7.450) 06/20/19 05:30 ABG pCO2 55.4 mm Hg 06/20/19 05:30 ABG pO2 63.4 mm Hg (80.0-90.0) L 06/20/19 05:30 ABG HCO3 32.9 mmol/L (20.0-26.0) H 06/20/19 05:30 ABG O2 Saturation 91.8 % (95.0-99.0) L 06/20/19 05:30 ABG O2 Content 19.4 (0.0-44) 06/20/19 05:30 ABG Base Excess 6.2 mmol/L (-2.0-3.0) H 06/20/19 05:30 ABG Hemoglobin 10.4 gm/dl (12.0-16.0) L 06/20/19 05:30 ABG Carboxyhemoglobin 1.8 % (0.0-5.0) 06/20/19 05:30 ABG Methemoglobin 0.4 % (0.0-1.5) 06/20/19 05:30 Oxyhemoglobin 89.7 % (95.0-99.0) L 06/20/19 05:30 FiO2 40 % 06/20/19 05:30 Sodium 137 mmol/L (137-145) 06/21/19 04:58 Potassium 4.9 mmol/L (3.6-5.0) 06/21/19 04:58 Chloride 99.4 mmol/L (98-107) 06/21/19 04:58 Carbon Dioxide 31 mmol/L (22-30) H 06/21/19 04:58 Anion Gap 12 mmol/L 06/21/19 04:58 BUN 23 mg/dL (7-17) H 06/21/19 04:58 Creatinine 0.3 mg/dL (0.7-1.2) L 06/21/19 04:58 Estimated GFR > 60 ml/min 06/21/19 04:58 BUN/Creatinine Ratio 77 % 06/21/19 04:58 Glucose 142 mg/dL (65-100) H 06/21/19 04:58 POC Glucose 137 (70-105) H 06/21/19 05:42 Calcium 8.7 mg/dL (8.4-10.2) 06/21/19 04:58 Phosphorus 4.50 mg/dL (2.5-4.5) 06/15/19 05:08 Magnesium 2.20 mg/dL (1.7-2.3) 06/15/19 05:08 Ferritin 43.6 ng/mL (13.0-400.0) 06/19/19 14:14 Total Bilirubin 0.30 mg/dL (0.1-1.2) 06/11/19 18:03 AST 14 units/L (5-40) 06/11/19 18:03 ALT 8 units/L (7-56) 06/11/19 18:03 Alkaline Phosphatase 85 units/L (35-129) 06/11/19 18:03 Lactate Dehydrogenase 290 units/L (91-180) H 06/19/19 14:14 Total Creatine Kinase 74 units/L (30-135) 06/12/19 05:09 CK-MB (CK-2) 4.0 ng/mL (0.0-4.0) 06/12/19 05:09 CK-MB (CK-2) Rel Index 5.4 (0-4) H 06/12/19 05:09 Troponin T < 0.010 ng/mL (0.00-0.029) 06/12/19 05:09 C-Reactive Protein 0.10 mg/dL (0.00-1.30) 06/19/19 14:14 Total Protein 6.4 g/dL (6.3-8.2) 06/11/19 18:03 Albumin 3.5 g/dL (3.9-5) L 06/11/19 18:03 Albumin/Globulin Ratio 1.2 % 06/11/19 18:03 Procalcitonin < 0.05 ng/mL (<0.15) 06/19/19 14:14 Urine Color Yellow (Yellow) 06/19/19 12:40 Urine Turbidity Clear (Clear) 06/19/19 12:40 Urine pH 5.0 (5.0-7.0) 06/19/19 12:40 Ur Specific [place] 1.032 (1.003-1.030) H 06/19/19 12:40 Urine Protein 30 mg/dl mg/dL (Negative) 06/19/19 12:40 Urine Glucose (UA) Neg mg/dL (Negative) 06/19/19 12:40 Urine Ketones Neg mg/dL (Negative) 06/19/19 12:40 Urine Blood Sm (Negative) 06/19/19 12:40 Urine Nitrite Neg (Negative) 06/19/19 12:40 Urine Bilirubin Neg (Negative) 06/19/19 12:40 Urine Urobilinogen < 2.0 mg/dL (<2.0) 06/19/19 12:40 Ur Leukocyte Esterase Neg (Negative) 06/19/19 12:40 Urine WBC (Auto) 4.0 /HPF (0.0-6.0) 06/19/19 12:40 Urine RBC (Auto) 44.0 /HPF (0.0-6.0) 06/19/19 12:40 Urine Bacteria (Auto) 1+ /HPF (Negative) 06/19/19 12:40 Hyaline Casts 15 /LPF 06/19/19 12:40 Urine Mucus Few /HPF 06/19/19 12:40 Urine Yeast (Budding) Few /HPF 06/12/19 02:04 Digoxin 1.0 ng/mL (0.9-2.0) 06/20/19 05:40 Salicylates 1.0 mg/dL (2.8-20.0) L 06/11/19 18:03 Acetaminophen < 5.0 ug/mL (10.0-30.0) L 06/11/19 18:03 Coronavirus (PCR) Negative (Negative) 06/19/19 10:33 Blood Type O POSITIVE 06/19/19 10:08 Antibody Screen Negative 06/19/19 10:08 Microbiology: Microbiology 06/19/19 12:40 Urine,Catheterized - Indwelling Catheter Urine Culture - Final NO GROWTH AFTER 48 HOURS 06/19/19 13:50 Tracheal Aspirate Sputum Culture - Preliminary Gram Negative Ras 06/19/19 10:10 Peripheral/Venous Blood Culture - Preliminary NO GROWTH AFTER 24 HOURS 06/19/19 10:10 Peripheral/Venous Blood Culture - Preliminary NO GROWTH AFTER 24 HOURS Harley/IV: Voiding Method Indwelling Catheter IV Catheter Type [Right Foot] INT / Saline Lock IV Catheter Type [Right Upper INT / Saline Lock arm] IV Catheter Type [Left Peripheral IV Antecubital] IV Catheter Type [Right Wrist] Peripheral IV IV Catheter Type [Right Hand] Peripheral IV Active Medications - Current Medications Current Medications: Generic Name Dose Route Start Last Admin Trade Name Freq PRN Reason Stop Dose Admin Acetaminophen 650 mg 06/11/19 22:48 06/20/19 08:03 Tylenol PO 650 mg Q4H PRN Administration Pain MILD(1-3)/Fever >100.5/PRAJAPATI Albuterol 2.5 mg 06/14/19 08:20 Proventil IH Q4HRT PRN Shortness Of Breath Albuterol/Ipratropium 1 ampul 06/14/19 14:00 06/21/19 07:44 Duoneb *Not For Prn Use* IH 1 ampul TIDRT DOMINICK Administration Alprazolam 0.25 mg 06/13/19 10:23 06/21/19 08:56 Xanax PO 0.25 mg Q8H PRN Administration Anxiety Amiodarone HCl 200 mg 06/17/19 10:00 06/21/19 09:09 Cordarone PO 200 mg QDAY DOMINICK Administration Lipase/Protease/Amylase 1 each 06/13/19 17:52 Pancreaze 10,500 Unit FEEDTUBE PRN PRN For Clogged Feeding Tube Arformoterol Tartrate 15 mcg 06/14/19 20:00 06/21/19 07:44 Brovana Nebu IH 15 mcg Q12HRT DOMINICK Administration Budesonide 0.5 mg 06/14/19 20:00 06/21/19 07:44 Pulmicort IH 0.5 mg Q12HRT DOMINICK Administration Dextrose 50 ml 06/11/19 22:48 D50w (25gm) Syringe IV Q30MIN PRN Hypoglycemia Protocol Digoxin 0.125 mg 06/16/19 17:00 06/20/19 17:24 Lanoxin IV 0.125 mg QDAY@1700 DOMINICK Administration Diltiazem HCl 30 mg 06/16/19 11:30 06/21/19 05:37 Cardizem PO Not Given Q8HR DOMINICK Docusate Sodium 100 mg 06/18/19 11:00 06/21/19 09:46 Colace PO 100 mg BID DOMINICK Administration Hydrophilic Ointment 1 applic 06/11/19 17:44 Vaseline Lip Therapy TP Q2HR PRN Dry Lips Fentanyl Citrate 2,000 mcg in 100 mls @ 3.742 mls/hr 06/11/19 18:00 06/21/19 08:00 Fentanyl Drip Premix IV 4 mcg/kg/hr TITR DOMINICK 14.969 mls/hr Titration Protocol 1 MCG/KG/HR Lorazepam 100 mg/ Sodium 100 mls @ 1 mls/hr 06/11/19 18:00 06/14/19 22:15 Chloride/ Miscellaneous IV 0 mg/hr Information TITR DOMINICK 0 mls/hr Titration Protocol 1 MG/HR Cefepime HCl 1 gm in 100 mls @ 200 mls/hr 06/14/19 14:00 06/21/19 05:36 Cefepime/Ns 1 Gm/100 Ml IV 200 mls/hr Q8HR DOMINICK Administration Protocol Sodium Chloride 500 mls @ 5 mls/hr 06/18/19 04:00 06/17/19 23:30 Nacl 0.9% 500 Ml IV 5 mls/hr DIRECT DOMINICK Administration Vancomycin HCl 1 gm in 250 mls @ 167.007 mls/hr 06/19/19 22:00 06/21/19 09:09 Vancomycin/Ns 1 Gm/250 Ml IV 167.007 mls/hr Q12HR DOMINICK Administration Insulin Human Lispro 0 unit 06/12/19 00:00 06/21/19 05:36 Humalog SUB-Q Not Given Q6HR DOMINICK Protocol Lansoprazole 30 mg 06/13/19 11:00 06/21/19 09:18 Prevacid Solutab FEEDTUBE 30 mg QDAY DOMINICK Administration Methylprednisolone Sodium Succinate 60 mg 06/17/19 12:00 06/21/19 05:35 Solu-Medrol IV 60 mg Q6HR DOMINICK Administration Metoprolol Tartrate 2.5 mg 06/19/19 11:11 06/19/19 11:48 Metoprolol IV 2.5 mg Q4H PRN Administration HR>130 Multi-Ingred Cream/Lotion/Oil/Oint 1 applic 06/11/19 17:44 Artificial Tears Ophth Oint OU Q4HR PRN Dry Eye(s) Ondansetron HCl 4 mg 06/11/19 22:48 Zofran IV Q8H PRN Nausea And Vomiting Polyethylene Glycol 17 gm 06/20/19 14:00 Miralax 3350 PO BID PRN Constipation Quetiapine Fumarate 300 mg 06/13/19 11:00 06/21/19 09:19 Seroquel PO 300 mg BID DOMINICK Administration Simple Syrup 15 ml 06/13/19 17:52 Simple Syrup FEEDTUBE PRN PRN Hypoglycemia Simple Syrup 30 ml 06/13/19 17:52 Simple Syrup FEEDTUBE PRN PRN Hypoglycemia Sodium Bicarbonate 325 mg 06/13/19 17:52 Sodium Bicarbonate FEEDTUBE PRN PRN For Clogged Feeding Tube Sodium Chloride 10 ml 06/12/19 10:00 06/21/19 09:20 Sodium Chloride Flush Syringe 10 Ml IV 10 ml BID DOMINICK Administration Sodium Chloride 10 ml 06/11/19 22:48 06/18/19 21:06 Sodium Chloride Flush Syringe 10 Ml IV 10 ml PRN PRN Administration LINE FLUSH Venlafaxine HCl 75 mg 06/13/19 14:00 06/21/19 08:50 Effexor PO 75 mg TID DOMINICK Administration Nutrition/Malnutrition Assess - Dietary Evaluation Nutrition/Malnutrition Findings: Nutrition Notes Start: 06/12/19 11:05 Freq: Status: Active Protocol: Document 06/16/19 13:28 LM (Rec: 06/16/19 13:45 LM [email or web address]) Nutrition Notes Initial or Follow up Reassessment Current Diagnosis COPD,Coronary Artery Disease, Hypertension,Heart Failure, Respiratory Failure Other Pertinent Diagnosis COPD exacerbation Current Diet Promote 1.0 at 60ml/hr Labs/Tests BG 165 Na 144 Pertinent Medications Humalog Solumedrol Height 5 ft Weight 74.843 kg Alexander Body Weight (kg) 45.45 BMI 32.2 Weight Status Obese Subjective/Other Information Promote running at goal. Na in normal range. Percent of energy/protein needs met: 97%/99% Burn Absent Trauma Absent Current % PO Negligible Minimum of two criteria No #1 Nutrition Diagnosis Inadequate oral intake Diagnosis Progress(for reassessment Continues documentation) Is patient on ventilator? Yes Is Patient Ambulatory and/or Out of Bed No REE-([facility]-confined to bed) [phone] Calculation Used for Recommendations [facility] Additional Notes Pro needs 2g/kg IBW: 91g/day 1ml/kcal Nutrition Intervention Change Diet Order: Continue TF Nutrition Support: Promote 1.0 at 60ml/hr Flush 150 q4h for hypernatremia Flush 50ml q4h once resolved Kcal 1,440 Protein (gm) 90 Fluid (mL) 1,208 Goal #1 TF tolerance Goal #2 Meet at least 75% of energy and protein needs Anticipated Discharge Needs: Unable to identify at this time Follow-Up By: 06/21/19 Additional Comments F/U for TF tolerance
[2019-06-21] MEDS: LORazepam 2 MG/ML VIAL IV PRN (15:03)
--- NOTE | 2019-06-21 16:21 | Progress Note ---
Assessment and Plan Cultures: Blood culture 06/11/2019 no growth Sputum culture 06/11/2019 pansensitive Pseudomonas Sputum culture 06/19/2019 Pseudomonas A/P: 59-year-old female past medical history GERD, tobacco abuse, COPD, CAD admitted to the hospital with COPD exacerbation admitted with acute hypoxic respiratory failure #Acute hypoxic respiratory failure: Given her high fevers and previous bibasilar infiltrates, I am concerned for COVID-19. I have ordered the coronavirus test and will follow up. Place patient on isolation precautions pending test re sults, which hopefully should not take long. Agree with current management of vancomycin and cefepime. Repeat blood and urine cultures were already ordered, and I ordered repeat sputum culture. She may need broadening of antibiotics if COVID-19 is negative. #COPD: High risk of respiratory failure as above. #Tobacco abuse Recs: -COVID-19 test negative okay to remove from precautions -cefepime per sputum culture results. -Stopped vancomycin Thank you for the consult, we will continue to follow. Shukri Malone MD [facility] ([facility] M: [phone] O: [phone] F: [phone] Subjective Date of service: 06/21/19 Principal diagnosis: Ac and ch hypoxic & hypercapnic resp failure; AE-COPD; Tob acco use disorder Interval history: Febrile to 100.7 degrees yesterday, afebrile today. White count is now 14. She is currently receiving cefepime and vancomycin. Sputum cultures have resolved pseudomonas aeruginosa. Chest x-ray improving Objective - Exam Narrative Exam: Physical Exam: Constitutional: Intubated Head, Ears, Nose: Normocephalic, atraumatic. External ears, nose normal Eyes: Conjunctivae/corneas clear. No icterus. No ptosis. Neck: Intubated Oral: Intubated Cardiovascular: S1, S2 normal. Respiratory: Good air entry, clear to auscultation bilaterally GI: Soft, non-tender; bowel sounds normal. No peritoneal signs. Musculoskeletal: No pedal edema, no cyanosis. Skin: No rash or abscess Hem/Lymphatic: No palpable cervical or supraclavicular nodes. No lymphangitis Psych: Sedated Neurological: Sedated - Constitutional Vitals: Vital Signs Temp Pulse Resp BP Pulse Ox 97.9 F 65 15 106/55 91 05/04/20 08:00 06/21/19 14:16 06/21/19 14:16 06/21/19 14:16 06/21/19 14:16 Temperature -Last 24 Hours Temperature 97.9 F Temperature 99.2 F Temperature 98.3 F Temperature 100.3 F - Labs CBC & Chem 7: 06/21/19 04:58 06/21/19 04:58 Labs: Abnormal lab results 06/20/19 06/21/19 06/21/19 Range/Units 18:32 00:12 04:58 WBC 13.9 H (4.5-11.0) K/mm3 Hgb 9.7 L (10.1-14.3) gm/dl MCH 25 L (28-32) pg RDW 17.9 H (13.2-15.2) % Plt Count 85 L (140-440) K/mm3 Carbon Dioxide (22-30) mmol/L BUN (7-17) mg/dL Creatinine (0.7-1.2) mg/dL Glucose (65-100) mg/dL POC Glucose 159 H 144 H (70-105) 06/21/19 06/21/19 06/21/19 Range/Units 04:58 05:42 12:43 WBC (4.5-11.0) K/mm3 Hgb (10.1-14.3) gm/dl MCH (28-32) pg RDW (13.2-15.2) % Plt Count (140-440) K/mm3 Carbon Dioxide 31 H (22-30) mmol/L BUN 23 H (7-17) mg/dL Creatinine 0.3 L (0.7-1.2) mg/dL Glucose 142 H (65-100) mg/dL POC Glucose 137 H 118 H (70-105)
[2019-06-22] MEDS: INSULIN LISPRO 100 UNIT/ML SUB-Q SCH ×4 (00:15→18:31)
[2019-06-22] MEDS: methylPREDNISolone Sod Succinate 125 MG/2 ML INJ IV SCH ×4 (00:34→17:12)
--- NOTE | 2019-06-22 03:13 | XRay Report ---
CHEST 1 VIEW INDICATION: RLL pna, acute hypoxic respiratory failure. COMPARISON: 06/20/2019 FINDINGS: Support devices: NG tube in satisfactory position. Heart: Stable cardiomegaly. Lungs/Pleura: Persistent pleural fluid/volume loss left base. Additional findings: None. IMPRESSION: No significant change. Signer Name: Hugh Daley MD Signed: 06/22/2019 3:09 AM Workstation Name: [id number]
[2019-06-22] MEDS: fentaNYL DRIP Premix 2,000 MCG/100 ML BAG IV SCH ×2 (04:32→10:04)
[2019-06-22] MEDS: dilTIAZem 30 MG TAB PO SCH ×3 (05:26→22:08)
[2019-06-22] MEDS: CEFEPIME/NS 1 GM/100 ML 1 GM/100 ML BAG IV SCH ×3 (05:56→22:13)
[2019-06-22] MEDS: BUDESONIDE 0.5 MG/2 ML NEBU IH SCH ×2 (07:42→20:50)
[2019-06-22] MEDS: ARFORMOTEROL 15 MCG/2 ML NEBU IH SCH ×2 (07:42→20:50)
[2019-06-22] MEDS: IPRATROPIUM/ALBUTEROL SULFATE 3 ML AMPUL.NEB IH SCH ×3 (07:42→20:50)
[2019-06-22] MEDS: ALPRAZolam 0.25 MG TAB PO PRN (09:00)
[2019-06-22] MEDS: VENLAFAXINE 75 MG TAB PO SCH ×3 (09:00→22:14)
[2019-06-22] MEDS: DOCUSATE SODIUM 100 MG/10 ML ORAL LIQD PO SCH ×2 (09:09→22:13)
[2019-06-22] MEDS: AMIODARONE 200 MG TAB PO SCH (09:10)
[2019-06-22] MEDS: LANSOPRAZOLE 30 MG SOLUTAB FEEDTUBE SCH (09:10)
[2019-06-22] MEDS: QUEtiapine 100 MG TAB PO SCH ×2 (09:10→22:13)
--- NOTE | 2019-06-22 09:28 | Progress Note ---
Assessment and Plan Assessment and plan: 59-year-old female patient with significant history of hypertension GERD depression COPD coronary artery disease CHF was admitted through emergency room with acute hypoxic hypercapnic respiratory failure requiring intubation and ventilatory support. Admitted to ICU evaluated by pulmonary critical, cardiology for A. fib flutter with rapid ventricular rate, started on Cardizem and amiodarone. Not a candidate for anticoagulation due to history of severe GI bleeding. Patient had mild hypotension, improved with holding, Blood pressure and diuretic meds, closely monitor Intubated on vent, wean as tolerated and extubate, Sputum cultures positive for Pseudomonas, continue cefepime Imaging personally reviewed: Chest x-ray: Left basilar effusion, previous x-rays with bibasilar opacities --COVID-19 was ruled out. --Severe sepsis with shock finished 5 days of vancomycin and continue cefepime new cultures, ID following. , Sputum growing pseudomonas aeruginosa. --Acute hypoxic and hypercapnic respiratory failure: Requiring intubation and ventilatory support Nebulizers, IV steroids, IV antibiotics inhalation steroids Pulmonary critical following, supportive care Wean as tolerated and extubate --Acute exacerbation of COPD : Nebulizers, tapering doses steroids --Left lung basilar density; pneumonia Continue empiric antibiotics follow cultures Sputum cultures positive for Pseudomonas Continue cefepime --Paroxysmal A. fib/flutter; RVR On amiodarone, digoxin and Cardizem Closely monitor, cardiology following-digoxin adjusted to 0.125 mg every other day per cardiology Changed amiodarone to 100 mg daily No chronic anticoagulation due to history of GI bleed --History of coronary artery disease/CHF Low-dose Lasix, continue other cardiac meds --Hypernatremia; resolved monitor sodium levels --History of depression; Resume antidepressive medications --Ongoing tobacco use; Will insurance counselor smoking cessation when patient is more stable Nicotine patch as needed --Obesity; BMI 32.2 Patient needs weight reduction when medically stable COVID-19 was ruled out.Thrombocytopenia -- monitor --Tube feeding diet; per dietary recommendations --DVT prophylaxis; Lovenox --Full CODE STATUS Restraints in place Patient is critically ill with poor prognosis Closely monitor the patient and adjust management as needed Follow consultant dietitian recommendations The high probability of a clinically significant, sudden or life threatening deterioration of the [respiratory, CVS] system(s) required my full and direct attention, intervention and personal management. The aggregate critical care time was [35] minutes. This time is in addition to time spent performing reported procedures but includes the following: [x] Data Review and interpretation [x] Patient assessment and monitoring of vital signs [x] Documentation [x] Medication orders and management Critical care time 35 minutes Monitor closely and adjust management as needed History Interval history: Patient seen and examined in the room in ICU Patient's chart medications, tests consultants reports reviewed Patient remains intubated on ventilatory support Unable to wean Patient seen and examined in ICU this morning at bedside Patient's chart and medications reviewed Patient remains intubated on ventilatory support Sedated noncommunicative Vital signs noted Hospitalist Physical - Constitutional Vitals: Temp Pulse Resp BP Pulse Ox 99.1 F 63 8 L 104/51 93 06/22/19 08:00 06/22/19 09:00 06/22/19 09:00 06/22/19 09:00 06/22/19 09:00 General appearance: Present: no acute distress, well-nourished, obese, other (Intubated on ventilatory support sedated) - EENT Eyes: Present: PERRL, EOM intact - Neck Neck: Present: supple, normal ROM - Respiratory Respiratory effort: normal Respiratory: bilateral: diminished, rhonchi, negative: rales, wheezing - Cardiovascular Rhythm: regular Heart Sounds: Present: S1 & S2 - Extremities Extremities: no ischemia, No edema - Abdominal General gastrointestinal: soft, non-tender, non-distended, normal bowel sounds - Integumentary Integumentary: Present: clear, warm - Psychiatric Psychiatric: other (Intubated on vent) - Neurologic Neurologic: other (Intubated on vent and sedated) Results - Labs CBC & Chem 7: 06/21/19 04:58 06/21/19 04:58 Labs: Laboratory Last Values WBC 13.9 K/mm3 (4.5-11.0) H 06/21/19 04:58 RBC 3.96 M/mm3 (3.65-5.03) 06/21/19 04:58 Hgb 9.7 gm/dl (10.1-14.3) L 06/21/19 04:58 Hct 32.2 % (30.3-42.9) 06/21/19 04:58 MCV 81 fl (79-97) 06/21/19 04:58 MCH 25 pg (28-32) L 06/21/19 04:58 MCHC 30 % (30-34) 06/21/19 04:58 RDW 17.9 % (13.2-15.2) H 06/21/19 04:58 Plt Count 85 K/mm3 (140-440) L 06/21/19 04:58 Lymph % (Auto) 13.7 % (13.4-35.0) 06/11/19 18:03 [place] % (Auto) 10.3 % (0.0-7.3) H 06/11/19 18:03 Eos % (Auto) 0.8 % (0.0-4.3) 06/11/19 18:03 Baso % (Auto) 0.8 % (0.0-1.8) 06/11/19 18:03 Lymph # 1.1 K/mm3 (1.2-5.4) L 06/11/19 18:03 [place] # 0.8 K/mm3 (0.0-0.8) 06/11/19 18:03 Eos # 0.1 K/mm3 (0.0-0.4) 06/11/19 18:03 Baso # 0.1 K/mm3 (0.0-0.1) 06/11/19 18:03 Add Manual Diff Complete 06/18/19 05:23 Total Counted 100 06/18/19 05:23 Seg Neutrophils % Laborer Driver 06/18/19 05:23 Seg Neuts % (Manual) 96.0 % (40.0-70.0) H 06/18/19 05:23 Band Neutrophils % 0 % 06/18/19 05:23 Lymphocytes % (Manual) 4.0 % (13.4-35.0) L 06/18/19 05:23 Reactive Lymphs % (Man) 0 % 06/18/19 05:23 Monocytes % (Manual) 0 % (0.0-7.3) 06/18/19 05:23 Eosinophils % (Manual) 0 % (0.0-4.3) 06/18/19 05:23 Basophils % (Manual) 0 % (0.0-1.8) 06/18/19 05:23 Metamyelocytes % 0 % 06/18/19 05:23 Myelocytes % 0 % 06/18/19 05:23 Promyelocytes % 0 % 06/18/19 05:23 Blast Cells % 0 % 06/18/19 05:23 Nucleated RBC % Not Reportable 06/18/19 05:23 Seg Neutrophils # 6.0 K/mm3 (1.8-7.7) 06/11/19 18:03 Seg Neutrophils # Man 12.7 K/mm3 (1.8-7.7) H 06/18/19 05:23 Band Neutrophils # 0.0 K/mm3 06/18/19 05:23 Lymphocytes # (Manual) 0.5 K/mm3 (1.2-5.4) L 06/18/19 05:23 Abs React Lymphs (Man) 0.0 K/mm3 06/18/19 05:23 Monocytes # (Manual) 0.0 K/mm3 (0.0-0.8) 06/18/19 05:23 Eosinophils # (Manual) 0.0 K/mm3 (0.0-0.4) 06/18/19 05:23 Basophils # (Manual) 0.0 K/mm3 (0.0-0.1) 06/18/19 05:23 Metamyelocytes # 0.0 K/mm3 06/18/19 05:23 Myelocytes # 0.0 K/mm3 06/18/19 05:23 Promyelocytes # 0.0 K/mm3 06/18/19 05:23 Blast Cells # 0.0 K/mm3 06/18/19 05:23 WBC Morphology Not Reportable 06/18/19 05:23 Hypersegmented Neuts Not Reportable 06/18/19 05:23 Hyposegmented Neuts Not Reportable 06/18/19 05:23 Hypogranular Neuts Not Reportable 06/18/19 05:23 Smudge Cells Not Reportable 06/18/19 05:23 Toxic Granulation Not Reportable 06/18/19 05:23 Toxic Vacuolation Not Reportable 06/18/19 05:23 Dohle Bodies Not Reportable 06/18/19 05:23 Pelger-Huet Anomaly Not Reportable 06/18/19 05:23 Neha Rods Not Reportable 06/18/19 05:23 Platelet Estimate Consistent w auto 06/18/19 05:23 Clumped Platelets Not Reportable 06/18/19 05:23 Plt Clumps, EDTA Not Reportable 06/18/19 05:23 Large Platelets Not Reportable 06/18/19 05:23 Giant Platelets Not Reportable 06/18/19 05:23 Platelet Satelliting Not Reportable 06/18/19 05:23 Plt Morphology Comment Not Reportable 06/18/19 05:23 RBC Morphology Not Reportable 06/18/19 05:23 Dimorphic RBCs Not Reportable 06/18/19 05:23 Polychromasia Not Reportable 06/18/19 05:23 Hypochromasia Few 06/18/19 05:23 Poikilocytosis Not Reportable 06/18/19 05:23 Anisocytosis Few 06/18/19 05:23 Microcytosis Not Reportable 06/18/19 05:23 Macrocytosis Not Reportable 06/18/19 05:23 Spherocytes Not Reportable 06/18/19 05:23 Pappenheimer Bodies Not Reportable 06/18/19 05:23 Sickle Cells Not Reportable 06/18/19 05:23 Target Cells Not Reportable 06/18/19 05:23 Tear Drop Cells Not Reportable 06/18/19 05:23 Ovalocytes Not Reportable 06/18/19 05:23 Helmet Cells Not Reportable 06/18/19 05:23 [place] Bodies Not Reportable 06/18/19 05:23 [place] Rings Not Reportable 06/18/19 05:23 [place] Cells Not Reportable 06/18/19 05:23 Bite Cells Not Reportable 06/18/19 05:23 Crenated Cell Not Reportable 06/18/19 05:23 Elliptocytes Not Reportable 06/18/19 05:23 Acanthocytes (Spur) Not Reportable 06/18/19 05:23 Rouleaux Not Reportable 06/18/19 05:23 Hemoglobin C Crystals Not Reportable 06/18/19 05:23 Schistocytes Few 06/18/19 05:23 Malaria parasites Not Reportable 06/18/19 05:23 [place] Bodies Not Reportable 06/18/19 05:23 Hem Pathologist Commnt No 06/18/19 05:23 PT 13.0 Sec. (12.2-14.9) 06/11/19 18:03 INR 0.97 (0.87-1.13) 06/11/19 18:03 D-Dimer 1177.30 ng/mlDDU (0-234) H 06/19/19 14:14 ABG pH 7.391 pH Units (7.350-7.450) 06/20/19 05:30 ABG pCO2 55.4 mm Hg 06/20/19 05:30 ABG pO2 63.4 mm Hg (80.0-90.0) L 06/20/19 05:30 ABG HCO3 32.9 mmol/L (20.0-26.0) H 06/20/19 05:30 ABG O2 Saturation 91.8 % (95.0-99.0) L 06/20/19 05:30 ABG O2 Content 19.4 (0.0-44) 06/20/19 05:30 ABG Base Excess 6.2 mmol/L (-2.0-3.0) H 06/20/19 05:30 ABG Hemoglobin 10.4 gm/dl (12.0-16.0) L 06/20/19 05:30 ABG Carboxyhemoglobin 1.8 % (0.0-5.0) 06/20/19 05:30 ABG Methemoglobin 0.4 % (0.0-1.5) 06/20/19 05:30 Oxyhemoglobin 89.7 % (95.0-99.0) L 06/20/19 05:30 FiO2 40 % 06/20/19 05:30 Sodium 137 mmol/L (137-145) 06/21/19 04:58 Potassium 4.9 mmol/L (3.6-5.0) 06/21/19 04:58 Chloride 99.4 mmol/L (98-107) 06/21/19 04:58 Carbon Dioxide 31 mmol/L (22-30) H 06/21/19 04:58 Anion Gap 12 mmol/L 06/21/19 04:58 BUN 23 mg/dL (7-17) H 06/21/19 04:58 Creatinine 0.3 mg/dL (0.7-1.2) L 06/21/19 04:58 Estimated GFR > 60 ml/min 06/21/19 04:58 BUN/Creatinine Ratio 77 % 06/21/19 04:58 Glucose 142 mg/dL (65-100) H 06/21/19 04:58 POC Glucose 144 (70-105) H 06/22/19 05:28 Calcium 8.7 mg/dL (8.4-10.2) 06/21/19 04:58 Phosphorus 4.50 mg/dL (2.5-4.5) 06/15/19 05:08 Magnesium 2.20 mg/dL (1.7-2.3) 06/15/19 05:08 Ferritin 43.6 ng/mL (13.0-400.0) 06/19/19 14:14 Total Bilirubin 0.30 mg/dL (0.1-1.2) 06/11/19 18:03 AST 14 units/L (5-40) 06/11/19 18:03 ALT 8 units/L (7-56) 06/11/19 18:03 Alkaline Phosphatase 85 units/L (35-129) 06/11/19 18:03 Lactate Dehydrogenase 290 units/L (91-180) H 06/19/19 14:14 Total Creatine Kinase 74 units/L (30-135) 06/12/19 05:09 CK-MB (CK-2) 4.0 ng/mL (0.0-4.0) 06/12/19 05:09 CK-MB (CK-2) Rel Index 5.4 (0-4) H 06/12/19 05:09 Troponin T < 0.010 ng/mL (0.00-0.029) 06/12/19 05:09 C-Reactive Protein 0.10 mg/dL (0.00-1.30) 06/19/19 14:14 Total Protein 6.4 g/dL (6.3-8.2) 06/11/19 18:03 Albumin 3.5 g/dL (3.9-5) L 06/11/19 18:03 Albumin/Globulin Ratio 1.2 % 06/11/19 18:03 Procalcitonin < 0.05 ng/mL (<0.15) 06/19/19 14:14 Urine Color Yellow (Yellow) 06/19/19 12:40 Urine Turbidity Clear (Clear) 06/19/19 12:40 Urine pH 5.0 (5.0-7.0) 06/19/19 12:40 Ur Specific [place] 1.032 (1.003-1.030) H 06/19/19 12:40 Urine Protein 30 mg/dl mg/dL (Negative) 06/19/19 12:40 Urine Glucose (UA) Neg mg/dL (Negative) 06/19/19 12:40 Urine Ketones Neg mg/dL (Negative) 06/19/19 12:40 Urine Blood Sm (Negative) 06/19/19 12:40 Urine Nitrite Neg (Negative) 06/19/19 12:40 Urine Bilirubin Neg (Negative) 06/19/19 12:40 Urine Urobilinogen < 2.0 mg/dL (<2.0) 06/19/19 12:40 Ur Leukocyte Esterase Neg (Negative) 06/19/19 12:40 Urine WBC (Auto) 4.0 /HPF (0.0-6.0) 06/19/19 12:40 Urine RBC (Auto) 44.0 /HPF (0.0-6.0) 06/19/19 12:40 Urine Bacteria (Auto) 1+ /HPF (Negative) 06/19/19 12:40 Hyaline Casts 15 /LPF 06/19/19 12:40 Urine Mucus Few /HPF 06/19/19 12:40 Urine Yeast (Budding) Few /HPF 06/12/19 02:04 Digoxin 1.0 ng/mL (0.9-2.0) 06/20/19 05:40 Salicylates 1.0 mg/dL (2.8-20.0) L 06/11/19 18:03 Acetaminophen < 5.0 ug/mL (10.0-30.0) L 06/11/19 18:03 Coronavirus (PCR) Negative (Negative) 06/19/19 10:33 Blood Type O POSITIVE 06/19/19 10:08 Antibody Screen Negative 06/19/19 10:08 Microbiology: Microbiology 06/19/19 13:50 Tracheal Aspirate Sputum Culture - Final Pseudomonas Aeruginosa 06/19/19 10:10 Peripheral/Venous Blood Culture - Preliminary NO GROWTH AFTER 48 HOURS 06/19/19 10:10 Peripheral/Venous Blood Culture - Preliminary NO GROWTH AFTER 48 HOURS 06/19/19 12:40 Urine,Catheterized - Indwelling Catheter Urine Culture - Final NO GROWTH AFTER 48 HOURS [place]/IV: Voiding Method Indwelling Catheter IV Catheter Type [Right Foot] INT / Saline Lock IV Catheter Type [Right Upper INT / Saline Lock arm] IV Catheter Type [Left Peripheral IV Antecubital] IV Catheter Type [Right Wrist] Peripheral IV IV Catheter Type [Right Hand] Peripheral IV Active Medications - Current Medications Current Medications: Generic Name Dose Route Start Last Admin Trade Name Freq PRN Reason Stop Dose Admin Acetaminophen 650 mg 06/11/19 22:48 06/20/19 08:03 Tylenol PO 650 mg Q4H PRN Administration Pain MILD(1-3)/Fever >100.5/PRAJAPATI Albuterol 2.5 mg 06/14/19 08:20 Proventil IH Q4HRT PRN Shortness Of Breath Albuterol/Ipratropium 1 ampul 06/14/19 14:00 06/22/19 07:42 Duoneb *Not For Prn Use* IH 1 ampul TIDRT DOMINICK Administration Alprazolam 0.25 mg 06/13/19 10:23 06/21/19 08:56 Xanax PO 0.25 mg Q8H PRN Administration Anxiety Amiodarone HCl 100 mg 06/22/19 10:00 06/22/19 09:10 Cordarone PO 100 mg QDAY DOMINICK Administration Lipase/Protease/Amylase 1 each 06/13/19 17:52 Pancreaze 10,500 Unit FEEDTUBE PRN PRN For Clogged Feeding Tube Arformoterol Tartrate 15 mcg 06/14/19 20:00 06/22/19 07:42 Brovana Nebu IH 15 mcg Q12HRT DOMINICK Administration Budesonide 0.5 mg 06/14/19 20:00 06/22/19 07:42 Pulmicort IH 0.5 mg Q12HRT DOMINICK Administration Dextrose 50 ml 06/11/19 22:48 D50w (25gm) Syringe IV Q30MIN PRN Hypoglycemia Protocol Digoxin 0.125 mg 06/22/19 17:00 Lanoxin IV Q48HR@1700 DOMINICK Diltiazem HCl 30 mg 06/16/19 11:30 06/22/19 05:26 Cardizem PO Not Given Q8HR DOMINICK Docusate Sodium 100 mg 06/18/19 11:00 06/22/19 09:09 Colace PO 100 mg BID DOMINICK Administration Hydrophilic Ointment 1 applic 06/11/19 17:44 Vaseline Lip Therapy TP Q2HR PRN Dry Lips Fentanyl Citrate 2,000 mcg in 100 mls @ 3.742 mls/hr 06/11/19 18:00 06/22/19 04:32 Fentanyl Drip Premix IV 4 mcg/kg/hr TITR DOMINICK 14.969 mls/hr Administration Protocol 1 MCG/KG/HR Lorazepam 100 mg/ Sodium 100 mls @ 1 mls/hr 06/11/19 18:00 06/14/19 22:15 Chloride/ Miscellaneous IV 0 mg/hr Information TITR DOMINICK 0 mls/hr Titration Protocol 1 MG/HR Cefepime HCl 1 gm in 100 mls @ 200 mls/hr 06/14/19 14:00 06/22/19 05:56 Cefepime/Ns 1 Gm/100 Ml IV 200 mls/hr Q8HR DOMINICK Administration Protocol Insulin Human Lispro 0 unit 06/12/19 00:00 06/22/19 05:25 Humalog SUB-Q Not Given Q6HR [facility] Protocol Lansoprazole 30 mg 06/13/19 11:00 06/22/19 09:10 Prevacid Solutab FEEDTUBE 30 mg QDAY DOMINICK Administration Lorazepam 2 mg 06/21/19 14:45 06/21/19 15:03 Ativan IV 2 mg Q6H PRN Administration Agitation Methylprednisolone Sodium Succinate 60 mg 06/17/19 12:00 06/22/19 05:56 Solu-Medrol IV 60 mg Q6HR DOMINICK Administration Metoprolol Tartrate 2.5 mg 06/19/19 11:11 06/19/19 11:48 Metoprolol IV 2.5 mg Q4H PRN Administration HR>130 Multi-Ingred Cream/Lotion/Oil/Oint 1 applic 06/11/19 17:44 Artificial Tears Ophth Oint OU Q4HR PRN Dry Eye(s) Ondansetron HCl 4 mg 06/11/19 22:48 Zofran IV Q8H PRN Nausea And Vomiting Polyethylene Glycol 17 gm 06/20/19 14:00 06/21/19 16:05 Miralax 3350 PO 17 gm BID PRN Administration Constipation Quetiapine Fumarate 300 mg 06/13/19 11:00 06/22/19 09:10 Seroquel PO 300 mg BID DOMINICK Administration Simple Syrup 15 ml 06/13/19 17:52 Simple Syrup FEEDTUBE PRN PRN Hypoglycemia Simple Syrup 30 ml 06/13/19 17:52 Simple Syrup FEEDTUBE PRN PRN Hypoglycemia Sodium Bicarbonate 325 mg 06/13/19 17:52 Sodium Bicarbonate FEEDTUBE PRN PRN For Clogged Feeding Tube Sodium Chloride 10 ml 06/12/19 10:00 06/22/19 09:11 Sodium Chloride Flush Syringe 10 Ml IV 10 ml BID DOMINICK Administration Sodium Chloride 10 ml 06/11/19 22:48 06/18/19 21:06 Sodium Chloride Flush Syringe 10 Ml IV 10 ml PRN PRN Administration LINE FLUSH Venlafaxine HCl 75 mg 06/13/19 14:00 06/22/19 09:00 Effexor PO 75 mg TID DOMINICK Administration Nutrition/Malnutrition Assess - Dietary Evaluation Nutrition/Malnutrition Findings: Nutrition Notes Start: 06/12/19 11:05 Freq: Status: Active Protocol: Document 06/21/19 16:17 [facility] (Rec: 06/21/19 16:20 [facility] SRW- [id number]) Nutrition Notes Initial or Follow up Brief Note Current Diagnosis COPD,Coronary Artery Disease, Hypertension,Heart Failure, Respiratory Failure Other Pertinent Diagnosis COPD exacerbation Current Diet TF - Promote at 60ml/hr Labs/Tests reviewed Pertinent Medications reviewed Height 5 ft Weight 68 kg [place] Body Weight (kg) 45.45 BMI 29.2 Weight change and time frame Wt change noted Subjective/Other Information RD unable to reach RN via phone at 15:47. Pt pulled feeding tube out yesterday. Pt remains on vent support. Is patient on ventilator? Yes Is Patient Ambulatory and/or Out of Bed No REE-([facility] [place]-confined to bed) 2506.804 Nutrition Intervention Follow-Up By: 06/22/19 Additional Comments F/U: TF tolerance
[2019-06-22] MEDS ORDERED: MAGNESIUM HYDROXIDE (MOM) ORAL LIQD UDC PO ONE (10:00)
[2019-06-22] MEDS: LORazepam 2 MG/ML VIAL IV PRN (10:28)
--- NOTE | 2019-06-22 10:41 | Progress Note ---
Assessment and Plan Paroxysmal Atrial flutter/afib/MAT currently in sinus rhythm on amiodarone, diltiazem and digoxin for suppression. Dig level at 1.0 on 06/19/19. not on anticoagulation secondary to history of melena and anemia. Respiratory failure s/p intubation COPD exacerbation on home oxygen History of [place]/Coronary artery disease EF 45-50% by echo 08/2018 [facility]: [employer]ATOR of the RCA recommend for medical therapy. She did undergo PCI of the mid LAD using bare metal stent. Recommend: Continue oral Cardizem, Amiodarone and Digoxin as tolerated for paroxysmal atrial flutter. Subjective Date of service: 06/22/19 Principal diagnosis: Ac and ch hypoxic & hypercapnic resp failure; AE-COPD; Tobacco use disorder Interval history: No cardiac events overnight. Objective Vital Signs Temp Pulse Pulse Pulse Resp Resp BP 06/22/19 09:00 63 8 L 104/51 0520 08:46 64 16 109/53 05/0520 08:30 64 14 102/55 050520 08:16 64 15 101/48 0505 08:00 99.1 F 60 64 12 104/51 05/05/20 07:46 63 17 109/56 05/05/20 07:42 82 16 0505/20 07:30 64 13 113/55 05/05/20 07:16 62 16 109/55 0505/20 07:00 64 13 105/50 05/05/20 06:46 62 13 98/56 05/05/20 06:30 64 13 103/53 05/05/20 06:16 64 15 104/49 05/05/20 06:00 63 14 103/50 05/05/20 05:46 66 11 L 109/56 05/05/20 05:30 64 15 107/52 05/05/20 05:26 65 104/52 05/05/20 05:16 68 17 104/52 05/05/20 05:00 67 16 103/51 05/05/20 04:45 67 15 105/53 05/05/20 04:30 69 15 109/56 05/05/20 04:16 69 15 106/51 05/05/20 04:00 67 70 15 103/51 05/05/20 03:45 72 12 105/53 05/05/20 03:30 75 15 104/52 05/05/20 03:25 99.4 F 05/05/20 03:15 80 18 106/55 05/05/20 03:00 81 15 107/56 05/05/20 02:46 80 13 106/56 05/05/20 02:30 87 16 112/58 05/05/20 02:16 109 H 19 109/56 05/05/20 02:00 79 12 109/56 05/05/20 01:45 80 17 109/58 05/05/20 01:30 83 12 109/59 05/05/20 01:15 85 15 109/57 05/05/20 01:00 91 H 13 105/60 05/05/20 00:45 92 H 17 112/57 05/05/20 00:30 90 19 110/59 05/05/20 00:16 90 108/57 05/05/20 00:15 89 17 108/57 05/05/20 00:00 93 H 94 H 12 107/50 05/04/20 23:50 93 H 15 109/59 05/04/20 23:45 93 H 21 109/59 05/04/20 23:30 96 H 19 111/60 05/04/20 23:16 93 H 17 111/53 05/04/20 23:15 98.9 F 05/04/20 23:00 96 H 20 110/57 05/04/20 22:45 96 H 16 105/54 05/04/20 22:30 99 H 14 105/57 05/04/20 22:15 105 H 14 100/54 05/04/20 22:10 103 H 29 H 05/04/20 21:45 104 H 15 98/51 05/04/20 21:30 103 H 19 100/49 05/04/20 21:16 104 H 16 104/52 05/04/20 21:08 106 H 110/69 05/04/20 21:00 107 H 13 101/47 05/04/20 20:45 76 20 101/47 05/04/20 20:30 73 14 98/49 05/04/20 20:15 75 16 102/51 05/04/20 20:00 99.4 F 78 79 76 16 16 101/51 05/04/20 19:45 77 15 98/51 05/0420 19:30 80 16 103/51 05/0420 19:15 82 16 101/53 05/0420 19:00 90 16 101/60 05/20 18:46 96 H 17 104/52 05/20 18:30 92 H 16 105/57 05/20 18:16 97 H 10 L 109/56 05/20 18:00 94 H 17 112/59 05/20 17:45 100 H 13 116/66 05/0420 17:30 93 H 17 107/58 05/20 17:15 95 H 13 111/57 05/20 17:00 98 H 18 108/59 05/20 16:45 100 H 18 110/59 05/06/06 16:30 100 H 13 104/59 05/20 16:15 100 H 19 110/63 05/0420 16:00 99.4 F 101 H 99 H 14 108/58 05/20 15:46 104 H 13 117/60 05/0420 15:30 105 H 13 117/63 05/0420 15:15 106 H 12 109/60 05/0420 15:00 127 H 17 151/122 05/0420 14:46 125 H 19 151/122 05/0420 14:30 64 15 104/57 05/0420 14:16 65 15 106/55 05/0420 14:00 67 14 101/59 05/0420 13:57 67 16 05/06/06 13:46 66 14 101/50 05/0420 13:30 68 16 105/50 05/0420 13:15 68 20 99/53 05/0420 13:00 71 16 104/55 05/04/20 12:45 72 13 102/57 05/0420 12:30 71 10 L 104/54 05/0420 12:16 73 14 103/54 05/0420 12:00 98.9 F 72 78 16 107/55 05/0420 11:45 77 11 L 102/54 05/04/20 11:30 80 16 105/54 05/0420 11:15 94 H 18 108/61 05/0420 11:00 105 H 16 108/63 05/04/20 10:45 100 H 21 93/63 Pulse Ox 05/05/20 09:00 93 05/05/20 08:46 95 05/05/20 08:30 94 05/05/20 08:16 87 05/05/20 08:00 90 05/05/20 07:46 97 05/05/20 07:42 05/05/20 07:30 96 05/05/20 07:16 99 05/05/20 07:00 96 05/05/20 06:46 98 05/05/20 06:30 95 05/05/20 06:16 94 05/05/20 06:00 98 05/05/20 05:46 98 05/05/20 05:30 98 05/05/20 05:26 05/05/20 05:16 98 05/05/20 05:00 99 05/05/20 04:45 99 05/05/20 04:30 98 05/05/20 04:16 99 05/05/20 04:00 98 05/05/20 03:45 98 05/05/20 03:30 94 05/05/20 03:25 05/05/20 03:15 97 05/05/20 03:00 98 05/05/20 02:46 98 05/05/20 02:30 97 05/05/20 02:16 95 05/05/20 02:00 98 05/05/20 01:45 98 05/05/20 01:30 97 05/05/20 01:15 97 05/05/20 01:00 97 05/05/20 00:45 98 05/05/20 00:30 98 05/05/20 00:16 97 05/05/20 00:15 97 05/05/20 00:00 97 05/04/20 23:50 97 05/04/20 23:45 97 05/04/20 23:30 96 05/04/20 23:16 96 05/04/20 23:15 05/04/20 23:00 96 05/04/20 22:45 96 05/04/20 22:30 95 05/04/20 22:15 95 05/04/20 22:10 95 05/04/20 21:45 95 05/04/20 21:30 95 05/04/20 21:16 96 05/04/20 21:08 06/21/19 21:00 92 06/21/19 20:45 90 06/21/19 20:30 93 06/21/19 20:15 96 06/21/19 20:00 92 06/21/19 19:45 93 06/21/19 19:30 94 06/21/19 19:15 94 06/21/19 19:00 96 06/21/19 18:46 91 06/21/19 18:30 97 06/21/19 18:16 95 06/21/19 18:00 96 06/21/19 17:45 97 06/21/19 17:30 96 06/21/19 17:15 94 06/21/19 17:00 86 06/21/19 16:45 86 06/21/19 16:30 90 06/21/19 16:15 96 06/21/19 16:00 95 06/21/19 15:46 93 06/21/19 15:30 06/21/19 15:15 83 L 06/21/19 15:00 84 06/21/19 14:46 87 06/21/19 14:30 90 06/21/19 14:16 91 06/21/19 14:00 90 06/21/19 13:57 06/21/19 13:46 90 06/21/19 13:30 90 06/21/19 13:15 88 06/21/19 13:00 96 06/21/19 12:45 95 06/21/19 12:30 96 06/21/19 12:16 91 06/21/19 12:00 97 06/21/19 11:45 96 06/21/19 11:30 91 06/21/19 11:15 94 06/21/19 11:00 94 06/21/19 10:45 93 - Physical Examination General: Other (intubated on the vent) HEENT: Positive: Other (intubated) Cardiac: Positive: Tachycardia - Allied health notes Allied health notes reviewed: RT
--- NOTE | 2019-06-22 12:01 | Progress Note ---
Assessment and Plan Acute and chronic hypoxic and hypercapnic respiratory failure on MVS Acute exacerbation of COPD Pseudomonas pneumonia Thrombocytopenia History of coronary artery disease/CHF History of depression; Obesity; BMI 32.2 Chronic narcotic dependence Tobacco use disorder/Nicotine dependence Continue with SCDs for VTE prophylaxis, platelets at 85. If the platelet count continues to improve will plan on starting VTE prophylaxis she is a high risk patient Daily SBT as tolerated and per protocol CXR, ABG in the morning Continue all current care -Continue with MVS, Lung protective strategies, monitor airway pressures -Adjust minute ventilation as indicated for better gas exchange -VAP bundle addressed -Aspiration precautions, HOB>40 -Daily assessment for readiness for weaning; SAT and SBT - Fentanyl and Lorazepam infusions titrate to RASS -1 -Antibiotics for severe AE-COPD -Steroids with slow taper -Bronchodilators with pulmonary hygiene -Stress ulcer prophylaxis, VTE prophylaxis -Continue enteric nutritional support -Continue to monitor glycemic control, with target blood glucose 140-180 mg/dL while critically ill. -Avoid hypoglycemia - Wean supplemental oxygen for target O2 sat's > 90% -ABG and CXR in am - Avoid benzodiazepines to reduce the possibility of delirium - prn analgesia per CPOT score - Mobility protocol , off loading and skin assessment per protocol for pressure ulcer prevention - Monitor hemodynamics closely -Nicotine withdrawal precautions -Smoking cessation counselling once she is extubated and able to participate in the discussion -Chronic home medications as indicated - continue other care per attending / other consultants CONDITION: CRITICAL PROGNOSIS: GUARDED CODE STATUS: FULL CODE Life threatening condition from acute and chronic hypoxic-hypercapnic respiratory failure with ventilator dependency Mortality/Morbidity- High Complexity of decision making- High The high probability of a clinically significant, sudden or life-threatening deterioration of the [respiratory, ] system(s) required my full and direct attention, intervention and personal management. The aggregate critical care time was [31] minutes without overlap. Time includes spent on; [x] Data Review and interpretation [x] Patient assessment and monitoring of vital signs [x] Documentation [x] Medication orders and management Subjective Date of service: 06/22/19 Principal diagnosis: Ac and ch hypoxic & hypercapnic resp failure; AE-COPD; Tobacco use disorder Interval history: Patient is seen today for: Ac and ch hypoxic hypercapnic resp failure; AE-COPD; Tobacco use disorder/Nicotine dependence; Hypernatremia; HTN (hypotensive at presentation 0; Chronic narcotic dependence ; Chronic back pain; Anxiety disorder 06/21/2019 episodes of desaturation this morning. High grade fever with Tmax of 101.8F COVID swab negative yesterday Tolerated PSV 2 days ago for 4 hours on 31/07, and tolerated it yesterday for 2 hours. ABG yesterday 7.39/55/63/91 on AC 16/450/6/40% Today 06/22/2019- no new issues. Seen and examined at bedside; 24-hour events reviewed; nursing and respiratory care staff consulted; no adverse overnight events reported to me; laying in bed; AMS is persistent; Remains on full MVS, no reported tachyarrythmias, on Fentanyl. No fevers. Objective Vital Signs - 12hr 06/22/19 06/22/19 06/22/19 00:15 00:16 00:30 Temperature Pulse Rate 89 90 90 Pulse Rate [ Bilateral] Pulse Rate [ From Monitor] Respiratory 17 19 Rate Respiratory Rate [Bilateral ] Blood Pressure 108/57 108/57 110/59 O2 Sat by Pulse 97 97 98 Oximetry 06/22/19 06/22/19 06/22/19 00:45 01:00 01:15 Temperature Pulse Rate 92 H 91 H 85 Pulse Rate [ Bilateral] Pulse Rate [ From Monitor] Respiratory 17 13 15 Rate Respiratory Rate [Bilateral ] Blood Pressure 112/57 105/60 109/57 O2 Sat by Pulse 98 97 97 Oximetry 06/22/19 06/22/19 06/22/19 01:30 01:45 02:00 Temperature Pulse Rate 83 80 79 Pulse Rate [ Bilateral] Pulse Rate [ From Monitor] Respiratory 12 17 12 Rate Respiratory Rate [Bilateral ] Blood Pressure 109/59 109/58 109/56 O2 Sat by Pulse 97 98 98 Oximetry 06/22/19 06/22/19 06/22/19 02:16 02:30 02:46 Temperature Pulse Rate 109 H 87 80 Pulse Rate [ Bilateral] Pulse Rate [ From Monitor] Respiratory 19 16 13 Rate Respiratory Rate [Bilateral ] Blood Pressure 109/56 112/58 106/56 O2 Sat by Pulse 95 97 98 Oximetry 06/22/19 06/22/19 06/22/19 03:00 03:15 03:25 Temperature 99.4 F Pulse Rate 81 80 Pulse Rate [ Bilateral] Pulse Rate [ From Monitor] Respiratory 15 18 Rate Respiratory Rate [Bilateral ] Blood Pressure 107/56 106/55 O2 Sat by Pulse 98 97 Oximetry 06/22/19 06/22/19 06/22/19 03:30 03:45 04:00 Temperature Pulse Rate 75 72 67 Pulse Rate [ Bilateral] Pulse Rate [ 70 From Monitor] Respiratory 15 12 15 Rate Respiratory Rate [Bilateral ] Blood Pressure 104/52 105/53 103/51 O2 Sat by Pulse 94 98 98 Oximetry 06/22/19 06/22/19 06/22/19 04:16 04:30 04:45 Temperature Pulse Rate 69 69 67 Pulse Rate [ Bilateral] Pulse Rate [ From Monitor] Respiratory 15 15 15 Rate Respiratory Rate [Bilateral ] Blood Pressure 106/51 109/56 105/53 O2 Sat by Pulse 99 98 99 Oximetry 06/22/19 06/22/19 06/22/19 05:00 05:16 05:26 Temperature Pulse Rate 67 68 65 Pulse Rate [ Bilateral] Pulse Rate [ From Monitor] Respiratory 16 17 Rate Respiratory Rate [Bilateral ] Blood Pressure 103/51 104/52 104/52 O2 Sat by Pulse 99 98 Oximetry 06/22/19 06/22/19 06/22/19 05:30 05:46 06:00 Temperature Pulse Rate 64 66 63 Pulse Rate [ Bilateral] Pulse Rate [ From Monitor] Respiratory 15 11 L 14 Rate Respiratory Rate [Bilateral ] Blood Pressure 107/52 109/56 103/50 O2 Sat by Pulse 98 98 98 Oximetry 06/22/19 06/22/19 06/22/19 06:16 06:30 06:46 Temperature Pulse Rate 64 64 62 Pulse Rate [ Bilateral] Pulse Rate [ From Monitor] Respiratory 15 13 13 Rate Respiratory Rate [Bilateral ] Blood Pressure 104/49 103/53 98/56 O2 Sat by Pulse 94 95 98 Oximetry 06/22/19 06/22/19 06/22/19 07:00 07:16 07:30 Temperature Pulse Rate 64 62 64 Pulse Rate [ Bilateral] Pulse Rate [ From Monitor] Respiratory 13 16 13 Rate Respiratory Rate [Bilateral ] Blood Pressure 105/50 109/55 113/55 O2 Sat by Pulse 96 99 96 Oximetry 06/22/19 06/22/19 06/22/19 07:42 07:46 08:00 Temperature 99.1 F Pulse Rate 63 61 Pulse Rate [ 82 Bilateral] Pulse Rate [ 64 From Monitor] Respiratory 17 12 Rate Respiratory 16 Rate [Bilateral ] Blood Pressure 109/56 104/51 O2 Sat by Pulse 97 90 Oximetry 06/22/19 06/22/19 06/22/19 08:16 08:30 08:46 Temperature Pulse Rate 64 64 64 Pulse Rate [ Bilateral] Pulse Rate [ From Monitor] Respiratory 15 14 16 Rate Respiratory Rate [Bilateral ] Blood Pressure 101/48 102/55 109/53 O2 Sat by Pulse 87 94 95 Oximetry 06/22/19 06/22/19 06/22/19 09:00 09:16 09:30 Temperature Pulse Rate 63 62 63 Pulse Rate [ Bilateral] Pulse Rate [ From Monitor] Respiratory 8 L 14 15 Rate Respiratory Rate [Bilateral ] Blood Pressure 104/51 105/51 103/55 O2 Sat by Pulse 93 94 93 Oximetry 06/22/19 06/22/19 06/22/19 09:46 10:00 10:16 Temperature Pulse Rate 63 64 133 H Pulse Rate [ Bilateral] Pulse Rate [ From Monitor] Respiratory 16 18 16 Rate Respiratory Rate [Bilateral ] Blood Pressure 100/55 108/54 108/54 O2 Sat by Pulse 90 91 87 Oximetry 06/22/19 06/22/19 06/22/19 10:30 10:46 11:00 Temperature Pulse Rate 142 H 109 H 104 H Pulse Rate [ Bilateral] Pulse Rate [ From Monitor] Respiratory 24 15 24 Rate Respiratory Rate [Bilateral ] Blood Pressure 108/54 100/55 96/57 O2 Sat by Pulse 94 93 93 Oximetry 06/22/19 06/22/19 11:10 11:15 Temperature Pulse Rate 63 100 H Pulse Rate [ Bilateral] Pulse Rate [ From Monitor] Respiratory 14 20 Rate Respiratory Rate [Bilateral ] Blood Pressure 104/51 96/61 O2 Sat by Pulse 93 94 Oximetry Constitutional: no acute distress, other (elderly looking obese CF, normocephalic on MVS without signidficant dyssynchrony) Eyes: non-icteric ENT: oropharynx moist, other (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) Neck: supple, no lymphadenopathy, no JVD Effort: mildly labored Ascultation: Bilateral: diminished breath sounds, rhonchi Percussion: Bilateral: not dull Cardiovascular: regular rate and rhythm Gastrointestinal: normoactive bowel sounds, soft, non-tender, non-distended Integumentary: normal Extremities: no cyanosis, no edema, pulses normal, no ischemia or petechiae Neurologic: non-focal exam (grossly), pupils equal and round, unable to assess Psychiatric: other (Unable to assess re: AMS) CBC and BMP: 06/21/19 04:58 06/21/19 04:58 ABG, PT/INR, D-dimer: ABG ABG pH 7.391 pH Units (7.350-7.450) 06/20/19 05:30 ABG pCO2 55.4 mm Hg 06/20/19 05:30 ABG pO2 63.4 mm Hg (80.0-90.0) L 06/20/19 05:30 ABG O2 Saturation 91.8 % (95.0-99.0) L 06/20/19 05:30 PT/INR, D-dimer PT 13.0 Sec. (12.2-14.9) 06/11/19 18:03 INR 0.97 (0.87-1.13) 06/11/19 18:03 D-Dimer 1177.30 ng/mlDDU (0-234) H 06/19/19 14:14 Abnormal lab findings: Abnormal Labs 06/11/19 06/11/19 06/11/19 18:03 18:03 18:03 WBC Hgb MCH 25 L RDW 19.4 H Plt Count 124 L [place] % (Auto) 10.3 H Lymph # 1.1 L Seg Neutrophils % 74.4 H Seg Neuts % (Manual) Lymphocytes % (Manual) Seg Neutrophils # Man Lymphocytes # (Manual) D-Dimer ABG pH ABG pO2 ABG HCO3 ABG O2 Saturation ABG Base Excess ABG Hemoglobin Oxyhemoglobin Sodium 146 H Chloride Carbon Dioxide BUN 21 H Creatinine 0.4 L Glucose POC Glucose Calcium Magnesium 2.70 H Lactate Dehydrogenase CK-MB (CK-2) CK-MB (CK-2) Rel Index Albumin 3.5 L Ur Specific [place] Urine WBC (Auto) Salicylates 1.0 L Acetaminophen 06/11/19 06/11/19 06/11/19 18:03 18:59 23:22 WBC Hgb MCH RDW Plt Count [place] % (Auto) Lymph # Seg Neutrophils % Seg Neuts % (Manual) Lymphocytes % (Manual) Seg Neutrophils # Man Lymphocytes # (Manual) D-Dimer ABG pH 7.340 L ABG pO2 76.0 L ABG HCO3 34.6 H ABG O2 Saturation ABG Base Excess 7.1 H ABG Hemoglobin 10.9 L Oxyhemoglobin 91.6 L Sodium Chloride Carbon Dioxide BUN Creatinine Glucose POC Glucose Calcium Magnesium Lactate Dehydrogenase CK-MB (CK-2) 5.5 H CK-MB (CK-2) Rel Index 5.5 H Albumin Ur Specific [place] Urine WBC (Auto) Salicylates Acetaminophen < 5.0 L 06/12/19 06/12/19 06/12/19 00:29 02:04 04:20 WBC Hgb MCH RDW Plt Count [place] % (Auto) Lymph # Seg Neutrophils % Seg Neuts % (Manual) Lymphocytes % (Manual) Seg Neutrophils # Man Lymphocytes # (Manual) D-Dimer ABG pH 7.313 L ABG pO2 75.3 L ABG HCO3 29.9 H ABG O2 Saturation 94.3 L ABG Base Excess ABG Hemoglobin 10.8 L Oxyhemoglobin 92.0 L Sodium Chloride Carbon Dioxide BUN Creatinine Glucose POC Glucose 107 H Calcium Magnesium Lactate Dehydrogenase CK-MB (CK-2) CK-MB (CK-2) Rel Index Albumin Ur Specific [place] Urine WBC (Auto) 30.0 H Salicylates Acetaminophen 06/12/19 06/12/19 06/12/19 05:09 05:09 05:09 WBC Hgb MCH 25 L RDW 19.4 H Plt Count 114 L [place] % (Auto) Lymph # Seg Neutrophils % Seg Neuts % (Manual) 91.0 H Lymphocytes % (Manual) 7.0 L Seg Neutrophils # Man Lymphocytes # (Manual) 0.4 L D-Dimer ABG pH ABG pO2 ABG HCO3 ABG O2 Saturation ABG Base Excess ABG Hemoglobin Oxyhemoglobin Sodium 147 H Chloride 107.4 H Carbon Dioxide BUN 19 H Creatinine 0.4 L Glucose 110 H POC Glucose Calcium 8.2 L Magnesium Lactate Dehydrogenase CK-MB (CK-2) CK-MB (CK-2) Rel Index 5.4 H Albumin Ur Specific [place] Urine WBC (Auto) Salicylates Acetaminophen 06/12/19 06/12/19 06/13/19 06:42 23:21 04:14 WBC Hgb MCH RDW Plt Count [place] % (Auto) Lymph # Seg Neutrophils % Seg Neuts % (Manual) Lymphocytes % (Manual) Seg Neutrophils # Man Lymphocytes # (Manual) D-Dimer ABG pH ABG pO2 62.6 L ABG HCO3 29.6 H ABG O2 Saturation 91.0 L ABG Base Excess ABG Hemoglobin 10.3 L Oxyhemoglobin 89.0 L Sodium Chloride Carbon Dioxide BUN Creatinine Glucose POC Glucose 108 H 106 H Calcium Magnesium Lactate Dehydrogenase CK-MB (CK-2) CK-MB (CK-2) Rel Index Albumin Ur Specific [place] Urine WBC (Auto) Salicylates Acetaminophen 06/13/19 06/13/19 06/13/19 04:54 04:54 12:20 WBC Hgb MCH 25 L RDW 19.2 H Plt Count 119 L [place] % (Auto) Lymph # Seg Neutrophils % Seg Neuts % (Manual) 95.0 H Lymphocytes % (Manual) 2.0 L Seg Neutrophils # Man 9.1 H Lymphocytes # (Manual) 0.2 L D-Dimer ABG pH ABG pO2 ABG HCO3 ABG O2 Saturation ABG Base Excess ABG Hemoglobin Oxyhemoglobin Sodium 149 H Chloride 111.4 H Carbon Dioxide BUN 26 H Creatinine 0.5 L Glucose 107 H POC Glucose 125 H Calcium Magnesium Lactate Dehydrogenase CK-MB (CK-2) CK-MB (CK-2) Rel Index Albumin Ur Specific [place] Urine WBC (Auto) Salicylates Acetaminophen 06/13/19 06/14/19 06/14/19 17:25 03:44 04:55 WBC Hgb MCH RDW Plt Count [place] % (Auto) Lymph # Seg Neutrophils % Seg Neuts % (Manual) Lymphocytes % (Manual) Seg Neutrophils # Man Lymphocytes # (Manual) D-Dimer ABG pH ABG pO2 58.9 L ABG HCO3 29.5 H ABG O2 Saturation 88.7 L ABG Base Excess ABG Hemoglobin 10.2 L Oxyhemoglobin 86.7 L Sodium 150 H Chloride 110.4 H Carbon Dioxide BUN 20 H Creatinine 0.4 L Glucose 105 H POC Glucose 128 H Calcium Magnesium Lactate Dehydrogenase CK-MB (CK-2) CK-MB (CK-2) Rel Index Albumin Ur Specific [place] Urine WBC (Auto) Salicylates Acetaminophen 06/14/19 06/14/19 06/14/19 05:37 11:58 21:00 WBC Hgb MCH RDW Plt Count [place] % (Auto) Lymph # Seg Neutrophils % Seg Neuts % (Manual) Lymphocytes % (Manual) Seg Neutrophils # Man Lymphocytes # (Manual) D-Dimer ABG pH 7.321 L ABG pO2 60.0 L ABG HCO3 31.4 H ABG O2 Saturation 87.3 L ABG Base Excess 4.1 H ABG Hemoglobin 10.6 L Oxyhemoglobin 84.8 L Sodium Chloride Carbon Dioxide BUN Creatinine Glucose POC Glucose 111 H 116 H Calcium Magnesium Lactate Dehydrogenase CK-MB (CK-2) CK-MB (CK-2) Rel Index Albumin Ur Specific [place] Urine WBC (Auto) Salicylates Acetaminophen 06/15/19 06/15/19 06/15/19 00:22 03:25 05:08 WBC Hgb MCH RDW Plt Count [place] % (Auto) Lymph # Seg Neutrophils % Seg Neuts % (Manual) Lymphocytes % (Manual) Seg Neutrophils # Man Lymphocytes # (Manual) D-Dimer ABG pH 7.317 L ABG pO2 ABG HCO3 31.5 H ABG O2 Saturation ABG Base Excess 4.1 H ABG Hemoglobin 10.4 L Oxyhemoglobin 94.1 L Sodium Chloride Carbon Dioxide 31 H BUN 23 H Creatinine 0.3 L Glucose 120 H POC Glucose 108 H Calcium Magnesium Lactate Dehydrogenase CK-MB (CK-2) CK-MB (CK-2) Rel Index Albumin Ur Specific [place] Urine WBC (Auto) Salicylates Acetaminophen 06/15/19 06/15/19 06/15/19 05:24 11:41 17:38 WBC Hgb MCH RDW Plt Count [place] % (Auto) Lymph # Seg Neutrophils % Seg Neuts % (Manual) Lymphocytes % (Manual) Seg Neutrophils # Man Lymphocytes # (Manual) D-Dimer ABG pH ABG pO2 ABG HCO3 ABG O2 Saturation ABG Base Excess ABG Hemoglobin Oxyhemoglobin Sodium Chloride Carbon Dioxide BUN Creatinine Glucose POC Glucose 111 H 154 H 115 H Calcium Magnesium Lactate Dehydrogenase CK-MB (CK-2) CK-MB (CK-2) Rel Index Albumin Ur Specific [place] Urine WBC (Auto) Salicylates Acetaminophen 06/15/19 06/16/19 06/16/19 23:31 03:40 05:18 WBC Hgb MCH RDW Plt Count [place] % (Auto) Lymph # Seg Neutrophils % Seg Neuts % (Manual) Lymphocytes % (Manual) Seg Neutrophils # Man Lymphocytes # (Manual) D-Dimer ABG pH 7.313 L ABG pO2 96.4 H ABG HCO3 35.2 H ABG O2 Saturation ABG Base Excess 7.2 H ABG Hemoglobin 10.5 L Oxyhemoglobin 94.9 L Sodium Chloride Carbon Dioxide BUN Creatinine Glucose POC Glucose 161 H 158 H Calcium Magnesium Lactate Dehydrogenase CK-MB (CK-2) CK-MB (CK-2) Rel Index Albumin Ur Specific [place] Urine WBC (Auto) Salicylates Acetaminophen 06/16/19 06/16/19 06/16/19 05:45 05:45 12:06 WBC 12.1 H Hgb MCH 25 L RDW 18.7 H Plt Count 93 L [place] % (Auto) Lymph # Seg Neutrophils % Seg Neuts % (Manual) 97.0 H Lymphocytes % (Manual) 0 L Seg Neutrophils # Man 11.7 H Lymphocytes # (Manual) 0.0 L D-Dimer ABG pH ABG pO2 ABG HCO3 ABG O2 Saturation ABG Base Excess ABG Hemoglobin Oxyhemoglobin Sodium Chloride Carbon Dioxide 33 H BUN 25 H Creatinine 0.3 L Glucose 165 H POC Glucose 178 H Calcium Magnesium Lactate Dehydrogenase CK-MB (CK-2) CK-MB (CK-2) Rel Index Albumin Ur Specific [place] Urine WBC (Auto) Salicylates Acetaminophen 06/16/19 06/16/19 06/17/19 17:55 23:42 03:35 WBC Hgb MCH RDW Plt Count [place] % (Auto) Lymph # Seg Neutrophils % Seg Neuts % (Manual) Lymphocytes % (Manual) Seg Neutrophils # Man Lymphocytes # (Manual) D-Dimer ABG pH ABG pO2 73.2 L ABG HCO3 35.2 H ABG O2 Saturation 94.5 L ABG Base Excess 8.8 H ABG Hemoglobin 10.7 L Oxyhemoglobin 92.6 L Sodium Chloride Carbon Dioxide BUN Creatinine Glucose POC Glucose 180 H 160 H Calcium Magnesium Lactate Dehydrogenase CK-MB (CK-2) CK-MB (CK-2) Rel Index Albumin Ur Specific [place] Urine WBC (Auto) Salicylates Acetaminophen 06/17/19 06/17/19 06/17/19 04:57 09:45 11:59 WBC 11.7 H Hgb MCH 25 L RDW 18.2 H Plt Count 79 L [place] % (Auto) Lymph # Seg Neutrophils % Seg Neuts % (Manual) 96.0 H Lymphocytes % (Manual) 3.0 L Seg Neutrophils # Man 11.2 H Lymphocytes # (Manual) 0.4 L D-Dimer ABG pH ABG pO2 ABG HCO3 ABG O2 Saturation ABG Base Excess ABG Hemoglobin Oxyhemoglobin Sodium Chloride Carbon Dioxide 34 H BUN 31 H Creatinine 0.3 L Glucose 153 H POC Glucose 163 H Calcium Magnesium Lactate Dehydrogenase CK-MB (CK-2) CK-MB (CK-2) Rel Index Albumin Ur Specific [place] Urine WBC (Auto) Salicylates Acetaminophen 06/17/19 06/17/19 06/18/19 17:33 23:39 04:25 WBC Hgb MCH RDW Plt Count [place] % (Auto) Lymph # Seg Neutrophils % Seg Neuts % (Manual) Lymphocytes % (Manual) Seg Neutrophils # Man Lymphocytes # (Manual) D-Dimer ABG pH ABG pO2 72.9 L ABG HCO3 33.8 H ABG O2 Saturation 94.6 L ABG Base Excess 7.3 H ABG Hemoglobin 11.1 L Oxyhemoglobin 92.8 L Sodium Chloride Carbon Dioxide BUN Creatinine Glucose POC Glucose 186 H 161 H Calcium Magnesium Lactate Dehydrogenase CK-MB (CK-2) CK-MB (CK-2) Rel Index Albumin Ur Specific [place] Urine WBC (Auto) Salicylates Acetaminophen 06/18/19 06/18/19 06/18/19 05:23 05:23 05:37 WBC 13.2 H Hgb MCH 25 L RDW 18.3 H Plt Count 81 L [place] % (Auto) Lymph # Seg Neutrophils % Seg Neuts % (Manual) 96.0 H Lymphocytes % (Manual) 4.0 L Seg Neutrophils # Man 12.7 H Lymphocytes # (Manual) 0.5 L D-Dimer ABG pH ABG pO2 ABG HCO3 ABG O2 Saturation ABG Base Excess ABG Hemoglobin Oxyhemoglobin Sodium Chloride Carbon Dioxide 34 H BUN 36 H Creatinine 0.3 L Glucose 162 H POC Glucose 177 H Calcium Magnesium Lactate Dehydrogenase CK-MB (CK-2) CK-MB (CK-2) Rel Index Albumin Ur Specific [place] Urine WBC (Auto) Salicylates Acetaminophen 06/18/19 06/18/19 06/18/19 12:26 18:17 23:51 WBC Hgb MCH RDW Plt Count [place] % (Auto) Lymph # Seg Neutrophils % Seg Neuts % (Manual) Lymphocytes % (Manual) Seg Neutrophils # Man Lymphocytes # (Manual) D-Dimer ABG pH ABG pO2 ABG HCO3 ABG O2 Saturation ABG Base Excess ABG Hemoglobin Oxyhemoglobin Sodium Chloride Carbon Dioxide BUN Creatinine Glucose POC Glucose 156 H 134 H 153 H Calcium Magnesium Lactate Dehydrogenase CK-MB (CK-2) CK-MB (CK-2) Rel Index Albumin Ur Specific [place] Urine WBC (Auto) Salicylates Acetaminophen 06/19/19 06/19/19 06/19/19 05:58 12:12 12:40 WBC Hgb MCH RDW Plt Count [place] % (Auto) Lymph # Seg Neutrophils % Seg Neuts % (Manual) Lymphocytes % (Manual) Seg Neutrophils # Man Lymphocytes # (Manual) D-Dimer ABG pH ABG pO2 ABG HCO3 ABG O2 Saturation ABG Base Excess ABG Hemoglobin Oxyhemoglobin Sodium Chloride Carbon Dioxide BUN Creatinine Glucose POC Glucose 143 H 186 H Calcium Magnesium Lactate Dehydrogenase CK-MB (CK-2) CK-MB (CK-2) Rel Index Albumin Ur Specific [place] 1.032 H Urine WBC (Auto) Salicylates Acetaminophen 06/19/19 06/19/19 06/19/19 14:14 14:14 16:40 WBC Hgb MCH RDW Plt Count [place] % (Auto) Lymph # Seg Neutrophils % Seg Neuts % (Manual) Lymphocytes % (Manual) Seg Neutrophils # Man Lymphocytes # (Manual) D-Dimer 1177.30 H ABG pH ABG pO2 54.2 L ABG HCO3 32.1 H ABG O2 Saturation 87.8 L ABG Base Excess 6.3 H ABG Hemoglobin 11.2 L Oxyhemoglobin 85.9 L Sodium Chloride Carbon Dioxide BUN Creatinine Glucose POC Glucose Calcium Magnesium Lactate Dehydrogenase 290 H CK-MB (CK-2) CK-MB (CK-2) Rel Index Albumin Ur Specific [place] Urine WBC (Auto) Salicylates Acetaminophen 06/19/19 06/19/19 06/20/19 17:00 23:50 05:14 WBC Hgb MCH RDW Plt Count [place] % (Auto) Lymph # Seg Neutrophils % Seg Neuts % (Manual) Lymphocytes % (Manual) Seg Neutrophils # Man Lymphocytes # (Manual) D-Dimer ABG pH ABG pO2 ABG HCO3 ABG O2 Saturation ABG Base Excess ABG Hemoglobin Oxyhemoglobin Sodium Chloride Carbon Dioxide BUN Creatinine Glucose POC Glucose 137 H 148 H 164 H Calcium Magnesium Lactate Dehydrogenase CK-MB (CK-2) CK-MB (CK-2) Rel Index Albumin Ur Specific [place] Urine WBC (Auto) Salicylates Acetaminophen 06/20/19 06/20/19 06/20/19 05:30 05:40 05:40 WBC 16.4 H Hgb MCH 25 L RDW 18.3 H Plt Count 79 L [place] % (Auto) Lymph # Seg Neutrophils % Seg Neuts % (Manual) Lymphocytes % (Manual) Seg Neutrophils # Man Lymphocytes # (Manual) D-Dimer ABG pH ABG pO2 63.4 L ABG HCO3 32.9 H ABG O2 Saturation 91.8 L ABG Base Excess 6.2 H ABG Hemoglobin 10.4 L Oxyhemoglobin 89.7 L Sodium Chloride Carbon Dioxide 31 H BUN 25 H Creatinine 0.3 L Glucose 150 H POC Glucose Calcium Magnesium Lactate Dehydrogenase CK-MB (CK-2) CK-MB (CK-2) Rel Index Albumin Ur Specific [place] Urine WBC (Auto) Salicylates Acetaminophen 06/20/19 06/20/19 06/21/19 12:35 18:32 00:12 WBC Hgb MCH RDW Plt Count [place] % (Auto) Lymph # Seg Neutrophils % Seg Neuts % (Manual) Lymphocytes % (Manual) Seg Neutrophils # Man Lymphocytes # (Manual) D-Dimer ABG pH ABG pO2 ABG HCO3 ABG O2 Saturation ABG Base Excess ABG Hemoglobin Oxyhemoglobin Sodium Chloride Carbon Dioxide BUN Creatinine Glucose POC Glucose 162 H 159 H 144 H Calcium Magnesium Lactate Dehydrogenase CK-MB (CK-2) CK-MB (CK-2) Rel Index Albumin Ur Specific [place] Urine WBC (Auto) Salicylates Acetaminophen 06/21/19 06/21/19 06/21/19 04:58 04:58 05:42 WBC 13.9 H Hgb 9.7 L MCH 25 L RDW 17.9 H Plt Count 85 L [place] % (Auto) Lymph # Seg Neutrophils % Seg Neuts % (Manual) Lymphocytes % (Manual) Seg Neutrophils # Man Lymphocytes # (Manual) D-Dimer ABG pH ABG pO2 ABG HCO3 ABG O2 Saturation ABG Base Excess ABG Hemoglobin Oxyhemoglobin Sodium Chloride Carbon Dioxide 31 H BUN 23 H Creatinine 0.3 L Glucose 142 H POC Glucose 137 H Calcium Magnesium Lactate Dehydrogenase CK-MB (CK-2) CK-MB (CK-2) Rel Index Albumin Ur Specific [place] Urine WBC (Auto) Salicylates Acetaminophen 06/21/19 06/21/19 06/22/19 12:43 23:17 05:28 WBC Hgb MCH RDW Plt Count [place] % (Auto) Lymph # Seg Neutrophils % Seg Neuts % (Manual) Lymphocytes % (Manual) Seg Neutrophils # Man Lymphocytes # (Manual) D-Dimer ABG pH ABG pO2 ABG HCO3 ABG O2 Saturation ABG Base Excess ABG Hemoglobin Oxyhemoglobin Sodium Chloride Carbon Dioxide BUN Creatinine Glucose POC Glucose 118 H 141 H 144 H Calcium Magnesium Lactate Dehydrogenase CK-MB (CK-2) CK-MB (CK-2) Rel Index Albumin Ur Specific [place] Urine WBC (Auto) Salicylates Acetaminophen Chest x-ray: image reviewed Allied health notes reviewed: RT
--- NOTE | 2019-06-22 15:20 | Progress Note ---
Assessment and Plan Cultures: Blood culture 06/11/2019 no growth Sputum culture 06/11/2019 pansensitive Pseudomonas Sputum culture 06/19/2019 Pseudomonas A/P: 59-year-old female past medical history GERD, tobacco abuse, COPD, CAD admitted to the hospital with COPD exacerbation admitted with acute hypoxic respiratory failure #Acute hypoxic respiratory failure: Given her high fevers and previous bibasilar infiltrates, I am concerned for COVID-19. I have ordered the coronavirus test and will follow up. Place patient on isolation precautions pending test re sults, which hopefully should not take long. Agree with current management of vancomycin and cefepime. Repeat blood and urine cultures were already ordered, and I ordered repeat sputum culture. She may need broadening of antibiotics if COVID-19 is negative. #COPD: High risk of respiratory failure as above. #Tobacco abuse Recs: -cefepime per sputum culture results. Would continue for 14 days as VAP. Thank you for the consult, we will continue to follow. Shukri Malone MD [facility] ([facility]) M: [phone] O: [phone] F: [phone] Subjective Date of service: 06/22/19 Principal diagnosis: Ac and ch hypoxic & hypercapnic resp failure; AE-COPD; Tobacco use disorder Interval history: Afebrile today. She is currently receiving cefepime and vancomycin. Sputum cultures have resolved pseudomonas aeruginosa, slightly more resistant than previous. Chest x-ray Stable. Objective - Exam Narrative Exam: Physical Exam: Constitutional: Intubated Head, Ears, Nose: Normocephalic, atraumatic. Eyes: Conjunctivae/corneas clear. No icterus. No ptosis. Neck: Intubated Oral: Intubated Cardiovascular: S1, S2 normal. Respiratory: Good air entry, clear to auscultation bilaterally GI: Soft, non-tender; bowel sounds normal. No peritoneal signs. Musculoskeletal: No pedal edema, no cyanosis. Skin: No rash or abscess Hem/Lymphatic: No palpable cervical or supraclavicular nodes. No lymphangitis Psych: Sedated Neurological: Sedated - Constitutional Vitals: Vital Signs Temp Pulse Resp BP Pulse Ox 98.8 F 62 16 114/64 97 06/22/19 12:00 06/22/19 14:23 06/22/19 14:23 06/22/19 13:24 06/22/19 12:30 Temperature -Last 24 Hours Temperature 98.8 F Temperature 99.1 F Temperature 99.4 F Temperature 98.9 F Temperature 99.4 F Temperature 99.4 F - Labs CBC & Chem 7: 06/21/19 04:58 06/21/19 04:58 Labs: Abnormal lab results 06/21/19 06/22/19 Range/Units 23:17 05:28 POC Glucose 141 H 144 H (70-105)
[2019-06-22] MEDS: DIGOXIN 0.5 MG/2 ML INJ IV SCH (17:12)
[2019-06-22] MEDS: LORazepam 100 MG in SODIUM CHLORIDE 0.9% 50 ML, EMPTY BAG 0 ML IV SCH (22:31)
[2019-06-23] MEDS: INSULIN LISPRO 100 UNIT/ML SUB-Q SCH ×5 (00:14→23:45)
[2019-06-23] MEDS: methylPREDNISolone Sod Succinate 125 MG/2 ML INJ IV SCH ×2 (00:15→05:03)
--- NOTE | 2019-06-23 03:18 | XRay Report ---
CHEST 1 VIEW INDICATION: respiratory failure, pneumonia. COMPARISON: 06/22/2019 FINDINGS: Support devices: Unchanged. Heart: Stable cardiomegaly. Lungs/Pleura: Right lung is clear. Left basilar effusion/volume loss and superimposed edema remains w ith slight worsening. Additional findings: None. IMPRESSION: Slight worsening. Signer Name: Hugh Daley MD Signed: 06/23/2019 3:14 AM Workstation Name: [id number]
[2019-06-23] MEDS: fentaNYL DRIP Premix 2,000 MCG/100 ML BAG IV SCH ×2 (03:24→23:43)
[2019-06-23] MEDS: CEFEPIME/NS 1 GM/100 ML 1 GM/100 ML BAG IV SCH ×3 (05:03→21:43)
[2019-06-23] MEDS: dilTIAZem 30 MG TAB PO SCH ×3 (05:04→21:42)
[2019-06-23 05:36] LABS: Mean Corpuscular HGB Conc 30 % (30-34); Mean Corpuscular Volume 82 fl (79-97); Red Cell Distribution Width 17.5 % (13.2-15.2)
[2019-06-23 05:41] LABS: Hemoglobin 10.5 gm/dl (10.1-14.3)
[2019-06-23 05:42] LABS: Platelet Count 98 K/mm3 (140-440)
[2019-06-23 05:50] LABS: BUN/Creatinine Ratio 80; Blood Urea Nitrogen 24 mg/dL (7-17); Calcium 8.5 mg/dL (8.4-10.2); Hemolysis Index 16
[2019-06-23 06:20] LABS: Band Neutrophils # (Manual) 0.1 K/mm3; Basophils % (Manual) 0 % (0.0-1.8); Eosinophils % (Manual) 0 % (0.0-4.3); Total Cells Counted 100
[2019-06-23 06:21] LABS: Hypochromasia 1+
[2019-06-23 06:22] LABS: Anisocytosis Few; Macrocytosis Rare; Platelet Estimate Consistent w Auto; Stomatocytes Rare
[2019-06-23] MEDS: IPRATROPIUM/ALBUTEROL SULFATE 3 ML AMPUL.NEB IH SCH ×3 (08:55→20:17)
[2019-06-23] MEDS: ARFORMOTEROL 15 MCG/2 ML NEBU IH SCH ×2 (08:55→20:17)
[2019-06-23] MEDS: BUDESONIDE 0.5 MG/2 ML NEBU IH SCH ×2 (08:55→20:17)
--- NOTE | 2019-06-23 09:15 | Progress Note ---
Assessment and Plan Acute and chronic hypoxic and hypercapnic respiratory failure on MVS Acute exacerbation of COPD Pseudomonas pneumonia Thrombocytopenia History of coronary artery disease/CHF History of depression; Obesity; BMI 32.2 Chronic narcotic dependence Tobacco use disorder/Nicotine dependence Continue with SCDs for VTE prophylaxis, platelets at 85. If the platelet count continues to improve will plan on starting VTE prophylaxis she is a high risk patient Daily SBT as tolerated and per protocol CXR, ABG in the morning Continue all current care -Continue with MVS, Lung protective strategies, monitor airway pressures -Adjust minute ventilation as indicated for better gas exchange -VAP bundle addressed -Aspiration precautions, HOB>40 -Daily assessment for readiness for weaning; SAT and SBT - Fentanyl and Lorazepam infusions titrate to RASS -1 -Antibiotics for severe AE-COPD -Steroids with slow taper -Bronchodilators with pulmonary hygiene -Stress ulcer prophylaxis, VTE prophylaxis -Continue enteric nutritional support -Continue to monitor glycemic control, with target blood glucose 140-180 mg/dL while critically ill. -Avoid hypoglycemia - Wean supplemental oxygen for target O2 sat's > 90% -ABG and CXR in am - Avoid benzodiazepines to reduce the possibility of delirium - prn analgesia per CPOT score - Mobility protocol , off loading and skin assessment per protocol for pressure ulcer prevention - Monitor hemodynamics closely -Nicotine withdrawal precautions -Smoking cessation counselling once she is extubated and able to participate in the discussion -Chronic home medications as indicated - continue other care per attending / other consultants CONDITION: CRITICAL PROGNOSIS: GUARDED CODE STATUS: FULL CODE Life threatening condition from acute and chronic hypoxic-hypercapnic respiratory failure with ventilator dependency Mortality/Morbidity- High Complexity of decision making- High The high probability of a clinically significant, sudden or life-threatening deterioration of the [respiratory, ] system(s) required my full and direct attention, intervention and personal management. The aggregate critical care time was [31] minutes without overlap. Time includes spent on; [x] Data Review and interpretation [x] Patient assessment and monitoring of vital signs [x] Documentation [x] Medication orders and management Subjective Date of service: 06/23/19 Principal diagnosis: Ac and ch hypoxic & hypercapnic resp failure; AE-COPD; Tobacco use disorder Interval history: Patient is seen today for: Ac and ch hypoxic hypercapnic resp failure; AE-COPD; Tobacco use disorder/Nicotine dependence; Hypernatremia; HTN (hypotensive at presentation); Chronic narcotic dependence ; Chronic back pain; Anxiety disorder Today 06/23/2019- no new issues. Seen and examined at bedside; 24-hour events reviewed; nursing and respiratory c are staff consulted; no adverse overnight events reported to me; laying in bed; AMS is persistent; Remains on full MVS, no reported tachyarrythmias, on Fentanyl. No fevers. Objective Vital Signs - 12hr 06/22/19 06/22/19 06/22/19 21:15 21:30 21:46 Temperature Pulse Rate 70 63 63 Respiratory 10 L 12 13 Rate Blood Pressure 110/54 106/57 108/56 O2 Sat by Pulse 96 96 97 Oximetry 06/22/19 06/22/19 06/22/19 22:00 22:08 22:16 Temperature Pulse Rate 60 62 60 Respiratory 12 13 Rate Blood Pressure 107/53 107/53 108/56 O2 Sat by Pulse 92 90 Oximetry 06/22/19 06/22/19 06/22/19 22:30 22:46 23:00 Temperature Pulse Rate 115 H 66 57 L Respiratory 15 17 16 Rate Blood Pressure 108/56 132/68 132/68 O2 Sat by Pulse 86 97 97 Oximetry 06/22/19 06/22/19 06/22/19 23:16 23:30 23:46 Temperature Pulse Rate 58 L 61 59 L Respiratory 14 16 16 Rate Blood Pressure 96/45 104/50 93/48 O2 Sat by Pulse 97 96 96 Oximetry 06/22/19 06/22/19 06/23/19 23:54 23:55 00:00 Temperature 97.8 F Pulse Rate 57 L 66 57 L Respiratory 17 16 Rate Blood Pressure 93/48 89/45 O2 Sat by Pulse 95 96 Oximetry 06/23/19 06/23/19 06/23/19 00:16 00:30 00:37 Temperature Pulse Rate 55 L 55 L 53 L Respiratory 16 15 Rate Blood Pressure 91/45 95/51 95/51 O2 Sat by Pulse 93 92 96 Oximetry 06/23/19 06/23/19 06/23/19 00:45 01:00 01:16 Temperature Pulse Rate 54 L 53 L 52 L Respiratory 16 16 13 Rate Blood Pressure 95/53 91/47 98/53 O2 Sat by Pulse 94 91 89 Oximetry 06/23/19 06/23/19 06/23/19 01:30 01:46 02:00 Temperature Pulse Rate 52 L 53 L 57 L Respiratory 11 L 13 16 Rate Blood Pressure 101/54 100/51 100/51 O2 Sat by Pulse 91 92 91 Oximetry 06/23/19 06/23/19 06/23/19 02:16 02:30 02:46 Temperature Pulse Rate 53 L 59 L 53 L Respiratory 16 13 16 Rate Blood Pressure 114/56 102/60 108/55 O2 Sat by Pulse 93 85 97 Oximetry 06/23/19 06/23/19 06/23/19 03:00 03:15 03:30 Temperature Pulse Rate 50 L 54 L 54 L Respiratory 16 16 15 Rate Blood Pressure 107/58 111/57 111/57 O2 Sat by Pulse 96 95 94 Oximetry 06/23/19 06/23/19 06/23/19 03:46 04:00 04:16 Temperature 98.0 F Pulse Rate 56 L 55 L 59 L Respiratory 15 10 L 13 Rate Blood Pressure 105/54 107/56 109/59 O2 Sat by Pulse 96 96 91 Oximetry 06/23/19 06/23/19 06/23/19 04:30 04:46 05:00 Temperature Pulse Rate 55 L 53 L 65 Respiratory 17 18 12 Rate Blood Pressure 102/54 99/58 99/58 O2 Sat by Pulse 92 91 99 Oximetry 06/23/19 06/23/19 06/23/19 05:04 05:12 05:16 Temperature Pulse Rate 58 L 61 59 L Respiratory 18 Rate Blood Pressure 127/67 137/70 O2 Sat by Pulse 97 95 Oximetry 06/23/19 06/23/19 06/23/19 05:30 05:46 06:00 Temperature Pulse Rate 55 L 50 L 56 L Respiratory 16 15 17 Rate Blood Pressure 137/70 116/59 116/59 O2 Sat by Pulse 99 98 98 Oximetry 06/23/19 06/23/19 06/23/19 06:16 06:30 06:46 Temperature Pulse Rate 54 L 54 L 55 L Respiratory 16 15 16 Rate Blood Pressure 112/53 112/55 107/54 O2 Sat by Pulse 97 95 98 Oximetry 06/23/19 06/23/19 06/23/19 07:00 07:16 07:30 Temperature Pulse Rate 52 L 54 L 52 L Respiratory 16 15 16 Rate Blood Pressure 114/56 114/56 114/56 O2 Sat by Pulse 97 88 97 Oximetry 06/23/19 06/23/19 06/23/19 07:46 08:00 08:16 Temperature 97.1 F L Pulse Rate 54 L 52 L 54 L Respiratory 16 15 16 Rate Blood Pressure 130/33 130/33 105/52 O2 Sat by Pulse 93 93 97 Oximetry 06/23/19 06/23/19 08:30 08:52 Temperature Pulse Rate 50 L 56 L Respiratory 16 Rate Blood Pressure 116/55 110/52 O2 Sat by Pulse 99 95 Oximetry Constitutional: no acute distress, other (elderly looking obese CF, normocephalic on MVS without signidficant dyssynchrony) Eyes: non-icteric ENT: oropharynx moist, other (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) Neck: supple, no lymphadenopathy, no JVD Effort: mildly labored Ascultation: Bilateral: diminished breath sounds, rhonchi Percussion: Bilateral: not dull Cardiovascular: regular rate and rhythm Gastrointestinal: normoactive bowel sounds, soft, non-tender, non-distended Integumentary: normal Extremities: no cyanosis, no edema, pulses normal, no ischemia or petechiae Neurologic: non-focal exam (grossly), pupils equal and round, unable to assess Psychiatric: other (Unable to assess re: AMS) CBC and BMP: 06/27/19 13:41 06/27/19 13:41 ABG, PT/INR, D-dimer: ABG ABG pH 7.391 pH Units (7.350-7.450) 06/20/19 05:30 ABG pCO2 55.4 mm Hg 06/20/19 05:30 ABG pO2 63.4 mm Hg (80.0-90.0) L 06/20/19 05:30 ABG O2 Saturation 91.8 % (95.0-99.0) L 06/20/19 05:30 PT/INR, D-dimer PT 13.0 Sec. (12.2-14.9) 06/11/19 18:03 INR 0.97 (0.87-1.13) 06/11/19 18:03 D-Dimer 1177.30 ng/mlDDU (0-234) H 06/19/19 14:14 Abnormal lab findings: Abnormal Labs 06/11/19 06/11/19 06/11/19 18:03 18:03 18:03 WBC Hgb MCH 25 L RDW 19.4 H Plt Count 124 L [place] % (Auto) 10.3 H Lymph # 1.1 L Seg Neutrophils % 74.4 H Seg Neuts % (Manual) Lymphocytes % (Manual) Seg Neutrophils # Man Lymphocytes # (Manual) D-Dimer ABG pH ABG pO2 ABG HCO3 ABG O2 Saturation ABG Base Excess ABG Hemoglobin Oxyhemoglobin Sodium 146 H Potassium Chloride Carbon Dioxide BUN 21 H Creatinine 0.4 L Glucose POC Glucose Calcium Magnesium 2.70 H Lactate Dehydrogenase CK-MB (CK-2) CK-MB (CK-2) Rel Index Albumin 3.5 L Ur Specific [place] Urine WBC (Auto) Salicylates 1.0 L Acetaminophen 06/11/19 06/11/19 06/11/19 18:03 18:59 23:22 WBC Hgb MCH RDW Plt Count [place] % (Auto) Lymph # Seg Neutrophils % Seg Neuts % (Manual) Lymphocytes % (Manual) Seg Neutrophils # Man Lymphocytes # (Manual) D-Dimer ABG pH 7.340 L ABG pO2 76.0 L ABG HCO3 34.6 H ABG O2 Saturation ABG Base Excess 7.1 H ABG Hemoglobin 10.9 L Oxyhemoglobin 91.6 L Sodium Potassium Chloride Carbon Dioxide BUN Creatinine Glucose POC Glucose Calcium Magnesium Lactate Dehydrogenase CK-MB (CK-2) 5.5 H CK-MB (CK-2) Rel Index 5.5 H Albumin Ur Specific [place] Urine WBC (Auto) Salicylates Acetaminophen < 5.0 L 06/12/19 06/12/19 06/12/19 00:29 02:04 04:20 WBC Hgb MCH RDW Plt Count [place] % (Auto) Lymph # Seg Neutrophils % Seg Neuts % (Manual) Lymphocytes % (Manual) Seg Neutrophils # Man Lymphocytes # (Manual) D-Dimer ABG pH 7.313 L ABG pO2 75.3 L ABG HCO3 29.9 H ABG O2 Saturation 94.3 L ABG Base Excess ABG Hemoglobin 10.8 L Oxyhemoglobin 92.0 L Sodium Potassium Chloride Carbon Dioxide BUN Creatinine Glucose POC Glucose 107 H Calcium Magnesium Lactate Dehydrogenase CK-MB (CK-2) CK-MB (CK-2) Rel Index Albumin Ur Specific [place] Urine WBC (Auto) 30.0 H Salicylates Acetaminophen 06/12/19 06/12/19 06/12/19 05:09 05:09 05:09 WBC Hgb MCH 25 L RDW 19.4 H Plt Count 114 L [place] % (Auto) Lymph # Seg Neutrophils % Seg Neuts % (Manual) 91.0 H Lymphocytes % (Manual) 7.0 L Seg Neutrophils # Man Lymphocytes # (Manual) 0.4 L D-Dimer ABG pH ABG pO2 ABG HCO3 ABG O2 Saturation ABG Base Excess ABG Hemoglobin Oxyhemoglobin Sodium 147 H Potassium Chloride 107.4 H Carbon Dioxide BUN 19 H Creatinine 0.4 L Glucose 110 H POC Glucose Calcium 8.2 L Magnesium Lactate Dehydrogenase CK-MB (CK-2) CK-MB (CK-2) Rel Index 5.4 H Albumin Ur Specific [place] Urine WBC (Auto) Salicylates Acetaminophen 06/12/19 06/12/19 06/13/19 06:42 23:21 04:14 WBC Hgb MCH RDW Plt Count [place] % (Auto) Lymph # Seg Neutrophils % Seg Neuts % (Manual) Lymphocytes % (Manual) Seg Neutrophils # Man Lymphocytes # (Manual) D-Dimer ABG pH ABG pO2 62.6 L ABG HCO3 29.6 H ABG O2 Saturation 91.0 L ABG Base Excess ABG Hemoglobin 10.3 L Oxyhemoglobin 89.0 L Sodium Potassium Chloride Carbon Dioxide BUN Creatinine Glucose POC Glucose 108 H 106 H Calcium Magnesium Lactate Dehydrogenase CK-MB (CK-2) CK-MB (CK-2) Rel Index Albumin Ur Specific [place] Urine WBC (Auto) Salicylates Acetaminophen 06/13/19 06/13/19 06/13/19 04:54 04:54 12:20 WBC Hgb MCH 25 L RDW 19.2 H Plt Count 119 L [place] % (Auto) Lymph # Seg Neutrophils % Seg Neuts % (Manual) 95.0 H Lymphocytes % (Manual) 2.0 L Seg Neutrophils # Man 9.1 H Lymphocytes # (Manual) 0.2 L D-Dimer ABG pH ABG pO2 ABG HCO3 ABG O2 Saturation ABG Base Excess ABG Hemoglobin Oxyhemoglobin Sodium 149 H Potassium Chloride 111.4 H Carbon Dioxide BUN 26 H Creatinine 0.5 L Glucose 107 H POC Glucose 125 H Calcium Magnesium Lactate Dehydrogenase CK-MB (CK-2) CK-MB (CK-2) Rel Index Albumin Ur Specific [place] Urine WBC (Auto) Salicylates Acetaminophen 06/13/19 06/14/19 06/14/19 17:25 03:44 04:55 WBC Hgb MCH RDW Plt Count [place] % (Auto) Lymph # Seg Neutrophils % Seg Neuts % (Manual) Lymphocytes % (Manual) Seg Neutrophils # Man Lymphocytes # (Manual) D-Dimer ABG pH ABG pO2 58.9 L ABG HCO3 29.5 H ABG O2 Saturation 88.7 L ABG Base Excess ABG Hemoglobin 10.2 L Oxyhemoglobin 86.7 L Sodium 150 H Potassium Chloride 110.4 H Carbon Dioxide BUN 20 H Creatinine 0.4 L Glucose 105 H POC Glucose 128 H Calcium Magnesium Lactate Dehydrogenase CK-MB (CK-2) CK-MB (CK-2) Rel Index Albumin Ur Specific [place] Urine WBC (Auto) Salicylates Acetaminophen 06/14/19 06/14/19 06/14/19 05:37 11:58 21:00 WBC Hgb MCH RDW Plt Count [place] % (Auto) Lymph # Seg Neutrophils % Seg Neuts % (Manual) Lymphocytes % (Manual) Seg Neutrophils # Man Lymphocytes # (Manual) D-Dimer ABG pH 7.321 L ABG pO2 60.0 L ABG HCO3 31.4 H ABG O2 Saturation 87.3 L ABG Base Excess 4.1 H ABG Hemoglobin 10.6 L Oxyhemoglobin 84.8 L Sodium Potassium Chloride Carbon Dioxide BUN Creatinine Glucose POC Glucose 111 H 116 H Calcium Magnesium Lactate Dehydrogenase CK-MB (CK-2) CK-MB (CK-2) Rel Index Albumin Ur Specific [place] Urine WBC (Auto) Salicylates Acetaminophen 06/15/19 06/15/19 06/15/19 00:22 03:25 05:08 WBC Hgb MCH RDW Plt Count [place] % (Auto) Lymph # Seg Neutrophils % Seg Neuts % (Manual) Lymphocytes % (Manual) Seg Neutrophils # Man Lymphocytes # (Manual) D-Dimer ABG pH 7.317 L ABG pO2 ABG HCO3 31.5 H ABG O2 Saturation ABG Base Excess 4.1 H ABG Hemoglobin 10.4 L Oxyhemoglobin 94.1 L Sodium Potassium Chloride Carbon Dioxide 31 H BUN 23 H Creatinine 0.3 L Glucose 120 H POC Glucose 108 H Calcium Magnesium Lactate Dehydrogenase CK-MB (CK-2) CK-MB (CK-2) Rel Index Albumin Ur Specific [place] Urine WBC (Auto) Salicylates Acetaminophen 06/15/19 06/15/19 06/15/19 05:24 11:41 17:38 WBC Hgb MCH RDW Plt Count [place] % (Auto) Lymph # Seg Neutrophils % Seg Neuts % (Manual) Lymphocytes % (Manual) Seg Neutrophils # Man Lymphocytes # (Manual) D-Dimer ABG pH ABG pO2 ABG HCO3 ABG O2 Saturation ABG Base Excess ABG Hemoglobin Oxyhemoglobin Sodium Potassium Chloride Carbon Dioxide BUN Creatinine Glucose POC Glucose 111 H 154 H 115 H Calcium Magnesium Lactate Dehydrogenase CK-MB (CK-2) CK-MB (CK-2) Rel Index Albumin Ur Specific [place] Urine WBC (Auto) Salicylates Acetaminophen 06/15/19 06/16/19 06/16/19 23:31 03:40 05:18 WBC Hgb MCH RDW Plt Count [place] % (Auto) Lymph # Seg Neutrophils % Seg Neuts % (Manual) Lymphocytes % (Manual) Seg Neutrophils # Man Lymphocytes # (Manual) D-Dimer ABG pH 7.313 L ABG pO2 96.4 H ABG HCO3 35.2 H ABG O2 Saturation ABG Base Excess 7.2 H ABG Hemoglobin 10.5 L Oxyhemoglobin 94.9 L Sodium Potassium Chloride Carbon Dioxide BUN Creatinine Glucose POC Glucose 161 H 158 H Calcium Magnesium Lactate Dehydrogenase CK-MB (CK-2) CK-MB (CK-2) Rel Index Albumin Ur Specific [place] Urine WBC (Auto) Salicylates Acetaminophen 06/16/19 06/16/19 06/16/19 05:45 05:45 12:06 WBC 12.1 H Hgb MCH 25 L RDW 18.7 H Plt Count 93 L [place] % (Auto) Lymph # Seg Neutrophils % Seg Neuts % (Manual) 97.0 H Lymphocytes % (Manual) 0 L Seg Neutrophils # Man 11.7 H Lymphocytes # (Manual) 0.0 L D-Dimer ABG pH ABG pO2 ABG HCO3 ABG O2 Saturation ABG Base Excess ABG Hemoglobin Oxyhemoglobin Sodium Potassium Chloride Carbon Dioxide 33 H BUN 25 H Creatinine 0.3 L Glucose 165 H POC Glucose 178 H Calcium Magnesium Lactate Dehydrogenase CK-MB (CK-2) CK-MB (CK-2) Rel Index Albumin Ur Specific [place] Urine WBC (Auto) Salicylates Acetaminophen 06/16/19 06/16/19 06/17/19 17:55 23:42 03:35 WBC Hgb MCH RDW Plt Count [place] % (Auto) Lymph # Seg Neutrophils % Seg Neuts % (Manual) Lymphocytes % (Manual) Seg Neutrophils # Man Lymphocytes # (Manual) D-Dimer ABG pH ABG pO2 73.2 L ABG HCO3 35.2 H ABG O2 Saturation 94.5 L ABG Base Excess 8.8 H ABG Hemoglobin 10.7 L Oxyhemoglobin 92.6 L Sodium Potassium Chloride Carbon Dioxide BUN Creatinine Glucose POC Glucose 180 H 160 H Calcium Magnesium Lactate Dehydrogenase CK-MB (CK-2) CK-MB (CK-2) Rel Index Albumin Ur Specific [place] Urine WBC (Auto) Salicylates Acetaminophen 06/17/19 06/17/19 06/17/19 04:57 09:45 11:59 WBC 11.7 H Hgb MCH 25 L RDW 18.2 H Plt Count 79 L [place] % (Auto) Lymph # Seg Neutrophils % Seg Neuts % (Manual) 96.0 H Lymphocytes % (Manual) 3.0 L Seg Neutrophils # Man 11.2 H Lymphocytes # (Manual) 0.4 L D-Dimer ABG pH ABG pO2 ABG HCO3 ABG O2 Saturation ABG Base Excess ABG Hemoglobin Oxyhemoglobin Sodium Potassium Chloride Carbon Dioxide 34 H BUN 31 H Creatinine 0.3 L Glucose 153 H POC Glucose 163 H Calcium Magnesium Lactate Dehydrogenase CK-MB (CK-2) CK-MB (CK-2) Rel Index Albumin Ur Specific [place] Urine WBC (Auto) Salicylates Acetaminophen 06/17/19 06/17/19 06/18/19 17:33 23:39 04:25 WBC Hgb MCH RDW Plt Count [place] % (Auto) Lymph # Seg Neutrophils % Seg Neuts % (Manual) Lymphocytes % (Manual) Seg Neutrophils # Man Lymphocytes # (Manual) D-Dimer ABG pH ABG pO2 72.9 L ABG HCO3 33.8 H ABG O2 Saturation 94.6 L ABG Base Excess 7.3 H ABG Hemoglobin 11.1 L Oxyhemoglobin 92.8 L Sodium Potassium Chloride Carbon Dioxide BUN Creatinine Glucose POC Glucose 186 H 161 H Calcium Magnesium Lactate Dehydrogenase CK-MB (CK-2) CK-MB (CK-2) Rel Index Albumin Ur Specific [place] Urine WBC (Auto) Salicylates Acetaminophen 06/18/19 06/18/19 06/18/19 05:23 05:23 05:37 WBC 13.2 H Hgb MCH 25 L RDW 18.3 H Plt Count 81 L [place] % (Auto) Lymph # Seg Neutrophils % Seg Neuts % (Manual) 96.0 H Lymphocytes % (Manual) 4.0 L Seg Neutrophils # Man 12.7 H Lymphocytes # (Manual) 0.5 L D-Dimer ABG pH ABG pO2 ABG HCO3 ABG O2 Saturation ABG Base Excess ABG Hemoglobin Oxyhemoglobin Sodium Potassium Chloride Carbon Dioxide 34 H BUN 36 H Creatinine 0.3 L Glucose 162 H POC Glucose 177 H Calcium Magnesium Lactate Dehydrogenase CK-MB (CK-2) CK-MB (CK-2) Rel Index Albumin Ur Specific [place] Urine WBC (Auto) Salicylates Acetaminophen 06/18/19 06/18/19 06/18/19 12:26 18:17 23:51 WBC Hgb MCH RDW Plt Count [place] % (Auto) Lymph # Seg Neutrophils % Seg Neuts % (Manual) Lymphocytes % (Manual) Seg Neutrophils # Man Lymphocytes # (Manual) D-Dimer ABG pH ABG pO2 ABG HCO3 ABG O2 Saturation ABG Base Excess ABG Hemoglobin Oxyhemoglobin Sodium Potassium Chloride Carbon Dioxide BUN Creatinine Glucose POC Glucose 156 H 134 H 153 H Calcium Magnesium Lactate Dehydrogenase CK-MB (CK-2) CK-MB (CK-2) Rel Index Albumin Ur Specific [place] Urine WBC (Auto) Salicylates Acetaminophen 06/19/19 06/19/19 06/19/19 05:58 12:12 12:40 WBC Hgb MCH RDW Plt Count [place] % (Auto) Lymph # Seg Neutrophils % Seg Neuts % (Manual) Lymphocytes % (Manual) Seg Neutrophils # Man Lymphocytes # (Manual) D-Dimer ABG pH ABG pO2 ABG HCO3 ABG O2 Saturation ABG Base Excess ABG Hemoglobin Oxyhemoglobin Sodium Potassium Chloride Carbon Dioxide BUN Creatinine Glucose POC Glucose 143 H 186 H Calcium Magnesium Lactate Dehydrogenase CK-MB (CK-2) CK-MB (CK-2) Rel Index Albumin Ur Specific [place] 1.032 H Urine WBC (Auto) Salicylates Acetaminophen 06/19/19 06/19/19 06/19/19 14:14 14:14 16:40 WBC Hgb MCH RDW Plt Count [place] % (Auto) Lymph # Seg Neutrophils % Seg Neuts % (Manual) Lymphocytes % (Manual) Seg Neutrophils # Man Lymphocytes # (Manual) D-Dimer 1177.30 H ABG pH ABG pO2 54.2 L ABG HCO3 32.1 H ABG O2 Saturation 87.8 L ABG Base Excess 6.3 H ABG Hemoglobin 11.2 L Oxyhemoglobin 85.9 L Sodium Potassium Chloride Carbon Dioxide BUN Creatinine Glucose POC Glucose Calcium Magnesium Lactate Dehydrogenase 290 H CK-MB (CK-2) CK-MB (CK-2) Rel Index Albumin Ur Specific [place] Urine WBC (Auto) Salicylates Acetaminophen 06/19/19 06/19/19 06/20/19 17:00 23:50 05:14 WBC Hgb MCH RDW Plt Count [place] % (Auto) Lymph # Seg Neutrophils % Seg Neuts % (Manual) Lymphocytes % (Manual) Seg Neutrophils # Man Lymphocytes # (Manual) D-Dimer ABG pH ABG pO2 ABG HCO3 ABG O2 Saturation ABG Base Excess ABG Hemoglobin Oxyhemoglobin Sodium Potassium Chloride Carbon Dioxide BUN Creatinine Glucose POC Glucose 137 H 148 H 164 H Calcium Magnesium Lactate Dehydrogenase CK-MB (CK-2) CK-MB (CK-2) Rel Index Albumin Ur Specific [place] Urine WBC (Auto) Salicylates Acetaminophen 06/20/19 06/20/19 06/20/19 05:30 05:40 05:40 WBC 16.4 H Hgb MCH 25 L RDW 18.3 H Plt Count 79 L [place] % (Auto) Lymph # Seg Neutrophils % Seg Neuts % (Manual) Lymphocytes % (Manual) Seg Neutrophils # Man Lymphocytes # (Manual) D-Dimer ABG pH ABG pO2 63.4 L ABG HCO3 32.9 H ABG O2 Saturation 91.8 L ABG Base Excess 6.2 H ABG Hemoglobin 10.4 L Oxyhemoglobin 89.7 L Sodium Potassium Chloride Carbon Dioxide 31 H BUN 25 H Creatinine 0.3 L Glucose 150 H POC Glucose Calcium Magnesium Lactate Dehydrogenase CK-MB (CK-2) CK-MB (CK-2) Rel Index Albumin Ur Specific [place] Urine WBC (Auto) Salicylates Acetaminophen 06/20/19 06/20/19 06/21/19 12:35 18:32 00:12 WBC Hgb MCH RDW Plt Count [place] % (Auto) Lymph # Seg Neutrophils % Seg Neuts % (Manual) Lymphocytes % (Manual) Seg Neutrophils # Man Lymphocytes # (Manual) D-Dimer ABG pH ABG pO2 ABG HCO3 ABG O2 Saturation ABG Base Excess ABG Hemoglobin Oxyhemoglobin Sodium Potassium Chloride Carbon Dioxide BUN Creatinine Glucose POC Glucose 162 H 159 H 144 H Calcium Magnesium Lactate Dehydrogenase CK-MB (CK-2) CK-MB (CK-2) Rel Index Albumin Ur Specific [place] Urine WBC (Auto) Salicylates Acetaminophen 06/21/19 06/21/19 06/21/19 04:58 04:58 05:42 WBC 13.9 H Hgb 9.7 L MCH 25 L RDW 17.9 H Plt Count 85 L [place] % (Auto) Lymph # Seg Neutrophils % Seg Neuts % (Manual) Lymphocytes % (Manual) Seg Neutrophils # Man Lymphocytes # (Manual) D-Dimer ABG pH ABG pO2 ABG HCO3 ABG O2 Saturation ABG Base Excess ABG Hemoglobin Oxyhemoglobin Sodium Potassium Chloride Carbon Dioxide 31 H BUN 23 H Creatinine 0.3 L Glucose 142 H POC Glucose 137 H Calcium Magnesium Lactate Dehydrogenase CK-MB (CK-2) CK-MB (CK-2) Rel Index Albumin Ur Specific [place] Urine WBC (Auto) Salicylates Acetaminophen 06/21/19 06/21/19 06/22/19 12:43 23:17 05:28 WBC Hgb MCH RDW Plt Count [place] % (Auto) Lymph # Seg Neutrophils % Seg Neuts % (Manual) Lymphocytes % (Manual) Seg Neutrophils # Man Lymphocytes # (Manual) D-Dimer ABG pH ABG pO2 ABG HCO3 ABG O2 Saturation ABG Base Excess ABG Hemoglobin Oxyhemoglobin Sodium Potassium Chloride Carbon Dioxide BUN Creatinine Glucose POC Glucose 118 H 141 H 144 H Calcium Magnesium Lactate Dehydrogenase CK-MB (CK-2) CK-MB (CK-2) Rel Index Albumin Ur Specific [place] Urine WBC (Auto) Salicylates Acetaminophen 06/22/19 06/22/19 06/23/19 12:11 18:27 00:12 WBC Hgb MCH RDW Plt Count [place] % (Auto) Lymph # Seg Neutrophils % Seg Neuts % (Manual) Lymphocytes % (Manual) Seg Neutrophils # Man Lymphocytes # (Manual) D-Dimer ABG pH ABG pO2 ABG HCO3 ABG O2 Saturation ABG Base Excess ABG Hemoglobin Oxyhemoglobin Sodium Potassium Chloride Carbon Dioxide BUN Creatinine Glucose POC Glucose 138 H 169 H 154 H Calcium Magnesium Lactate Dehydrogenase CK-MB (CK-2) CK-MB (CK-2) Rel Index Albumin Ur Specific [place] Urine WBC (Auto) Salicylates Acetaminophen 06/23/19 06/23/19 06/23/19 05:05 05:05 05:15 WBC 11.5 H Hgb MCH 25 L RDW 17.5 H Plt Count 98 L [place] % (Auto) Lymph # Seg Neutrophils % Seg Neuts % (Manual) 88.0 H Lymphocytes % (Manual) 4.0 L Seg Neutrophils # Man 10.1 H Lymphocytes # (Manual) 0.5 L D-Dimer ABG pH ABG pO2 ABG HCO3 ABG O2 Saturation ABG Base Excess ABG Hemoglobin Oxyhemoglobin Sodium 133 L Potassium 5.3 H Chloride 95.5 L Carbon Dioxide BUN 24 H Creatinine 0.3 L Glucose 168 H POC Glucose 174 H Calcium Magnesium 2.60 H Lactate Dehydrogenase CK-MB (CK-2) CK-MB (CK-2) Rel Index Albumin Ur Specific [place] Urine WBC (Auto) Salicylates Acetaminophen Allied health notes reviewed: RT
[2019-06-23 09:25] LABS: ABG HCO3 33.2 mmol/L (20.0-26.0); ABG Methemoglobin 0.3 % (0.0-1.5); ABG PCO2 56.3 mm Hg; ABG PH 7.388 pH Units (7.350-7.450); ABG PO2 56.9 mm Hg (80.0-90.0)
--- NOTE | 2019-06-23 09:30 | Progress Note ---
Assessment and Plan Assessment and plan: 59-year-old female patient with significant history of hypertension GERD depression COPD coronary artery disease CHF was admitted through emergency room with acute hypoxic hypercapnic respiratory failure requiring intubation and ventilatory support. Admitted to ICU evaluated by pulmonary critical, cardiology for A. fib flutter with rapid ventricular rate, started on Cardizem and amiodarone. Not a candidate for anticoagulation due to history of severe GI bleeding. Patient had mild hypotension, improved with holding, Blood pressure and diuretic meds, closely monitor Intubated on vent, wean as tolerated and extubate, Sputum cultures positive for Pseudomonas, continue cefepime Chest x-ray: Left basilar effusion, previous x-rays with bibasilar opacities --COVID-19 was ruled out. --sepsis/pneumonia/sputum Pseudomonas 06/11/2019; present on admission ID following , continue cefepime Sputum cultures again positive Pseudomonas on 06/19/2019 --Left lung basilar density; pneumonia Sputum cultures positive for Pseudomonas Continue cefepime --Acute hypoxic and hypercapnic respiratory failure: Requiring intubation and ventilatory support Nebulizers, IV steroids, IV antibiotics inhalation steroids Pulmonary critical following, supportive care Wean as tolerated and extubate --Paroxysmal A. fib/flutter; RVR On amiodarone, digoxin and Cardizem Closely monitor, cardiology following-digoxin adjusted to 0.125 mg every other day per cardiology Changed amiodarone to 100 mg daily No chronic anticoagulation due to history of GI bleed --History of coronary artery disease/CHF Low-dose Lasix, continue other cardiac meds --Hypernatremia; resolved monitor sodium levels --History of depression; Resume antidepressive medications --Ongoing tobacco use; Will spiritual counselor smoking cessation when patient is more stable Nicotine patch as needed --Obesity; BMI 32.2 Patient needs weight reduction when medically stable --Thrombocytopenia; monitor --Tube feeding diet; per dietary recommendations --DVT prophylaxis; Lovenox --Full CODE STATUS Restraints in place. Patient is critically ill with poor prognosis Closely monitor the patient and adjust management as needed Follow apprenticeship consultant recommendations The high probability of a clinically significant, sudden or life threatening deterioration of the [respiratory, CVS] system(s) required my full and direct attention, intervention and personal management. The aggregate critical care time was [35] minutes. This time is in addition to time spent performing reported procedures but includes the following: [x] Data Review and interpretation [x] Patient assessment and monitoring of vital signs [x] Documentation [x] Medication orders and management Critical care time 35 minutes Monitor closely and adjust management as needed History Interval history: Patient seen and examined at bedside in ICU this morning Patient's chart, medications, overnight events reviewed Patient remains intubated on ventilatory support Unable to wean, vital signs reviewed Hospitalist Physical - Constitutional Vitals: Temp Pulse Resp BP Pulse Ox 97.1 F L 56 L 16 110/52 95 06/23/19 08:00 06/23/19 08:52 06/23/19 08:30 06/23/19 08:52 06/23/19 08:52 General appearance: Present: no acute distress, well-nourished, obese, other (Intubated on ventilatory support sedated) - EENT Eyes: Present: PERRL, EOM intact - Neck Neck: Present: supple, normal ROM - Respiratory Respiratory effort: normal Respiratory: bilateral: diminished, rhonchi, negative: rales, wheezing - Cardiovascular Rhythm: regular Heart Sounds: Present: S1 & S2 - Extremities Extremities: no ischemia, No edema - Abdominal General gastrointestinal: soft, non-tender, non-distended, normal bowel sounds - Integumentary Integumentary: Present: clear, warm - Psychiatric Psychiatric: other (Intubated on vent) - Neurologic Neurologic: other (Intubated on vent) Results - Labs CBC & Chem 7: 06/23/19 05:05 06/23/19 05:05 Labs: Laboratory Last Values WBC 11.5 K/mm3 (4.5-11.0) H 06/23/19 05:05 RBC 4.30 M/mm3 (3.65-5.03) 06/23/19 05:05 Hgb 10.5 gm/dl (10.1-14.3) 06/23/19 05:05 Hct 35.0 % (30.3-42.9) 06/23/19 05:05 MCV 82 fl (79-97) 06/23/19 05:05 MCH 25 pg (28-32) L 06/23/19 05:05 MCHC 30 % (30-34) 06/23/19 05:05 RDW 17.5 % (13.2-15.2) H 06/23/19 05:05 Plt Count 98 K/mm3 (140-440) L 06/23/19 05:05 Lymph % (Auto) 13.7 % (13.4-35.0) 06/11/19 18:03 Mcdonald % (Auto) 10.3 % (0.0-7.3) H 06/11/19 18:03 Eos % (Auto) 0.8 % (0.0-4.3) 06/11/19 18:03 Baso % (Auto) 0.8 % (0.0-1.8) 06/11/19 18:03 Lymph # 1.1 K/mm3 (1.2-5.4) L 06/11/19 18:03 Mcdonald # 0.8 K/mm3 (0.0-0.8) 06/11/19 18:03 Eos # 0.1 K/mm3 (0.0-0.4) 06/11/19 18:03 Baso # 0.1 K/mm3 (0.0-0.1) 06/11/19 18:03 Add Manual Diff Complete 06/23/19 05:05 Total Counted 100 06/23/19 05:05 Seg Neutrophils % Diving Instructor 06/23/19 05:05 Seg Neuts % (Manual) 88.0 % (40.0-70.0) H 06/23/19 05:05 Band Neutrophils % 1.0 % 06/23/19 05:05 Lymphocytes % (Manual) 4.0 % (13.4-35.0) L 06/23/19 05:05 Reactive Lymphs % (Man) 0 % 06/23/19 05:05 Monocytes % (Manual) 7.0 % (0.0-7.3) 06/23/19 05:05 Eosinophils % (Manual) 0 % (0.0-4.3) 06/23/19 05:05 Basophils % (Manual) 0 % (0.0-1.8) 06/23/19 05:05 Metamyelocytes % 0 % 06/23/19 05:05 Myelocytes % 0 % 06/23/19 05:05 Promyelocytes % 0 % 06/23/19 05:05 Blast Cells % 0 % 06/23/19 05:05 Nucleated RBC % Not Reportable 06/23/19 05:05 Seg Neutrophils # 6.0 K/mm3 (1.8-7.7) 06/11/19 18:03 Seg Neutrophils # Man 10.1 K/mm3 (1.8-7.7) H 06/23/19 05:05 Band Neutrophils # 0.1 K/mm3 06/23/19 05:05 Lymphocytes # (Manual) 0.5 K/mm3 (1.2-5.4) L 06/23/19 05:05 Abs React Lymphs (Man) 0.0 K/mm3 06/23/19 05:05 Monocytes # (Manual) 0.8 K/mm3 (0.0-0.8) 06/23/19 05:05 Eosinophils # (Manual) 0.0 K/mm3 (0.0-0.4) 06/23/19 05:05 Basophils # (Manual) 0.0 K/mm3 (0.0-0.1) 06/23/19 05:05 Metamyelocytes # 0.0 K/mm3 06/23/19 05:05 Myelocytes # 0.0 K/mm3 06/23/19 05:05 Promyelocytes # 0.0 K/mm3 06/23/19 05:05 Blast Cells # 0.0 K/mm3 06/23/19 05:05 WBC Morphology Not Reportable 06/23/19 05:05 Hypersegmented Neuts Not Reportable 06/23/19 05:05 Hyposegmented Neuts Not Reportable 06/23/19 05:05 Hypogranular Neuts Not Reportable 06/23/19 05:05 Smudge Cells Not Reportable 06/23/19 05:05 Toxic Granulation Not Reportable 06/23/19 05:05 Toxic Vacuolation Not Reportable 06/23/19 05:05 Dohle Bodies Not Reportable 06/23/19 05:05 Pelger-Huet Anomaly Not Reportable 06/23/19 05:05 Neha Rods Not Reportable 06/23/19 05:05 Platelet Estimate Consistent w auto 06/23/19 05:05 Clumped Platelets Not Reportable 06/23/19 05:05 Plt Clumps, EDTA Not Reportable 06/23/19 05:05 Large Platelets Not Reportable 06/23/19 05:05 Giant Platelets Not Reportable 06/23/19 05:05 Platelet Satelliting Not Reportable 06/23/19 05:05 Plt Morphology Comment Not Reportable 06/23/19 05:05 RBC Morphology Not Reportable 06/23/19 05:05 Dimorphic RBCs Not Reportable 06/23/19 05:05 Polychromasia Not Reportable 06/23/19 05:05 Hypochromasia 1+ 06/23/19 05:05 Poikilocytosis Not Reportable 06/23/19 05:05 Anisocytosis Few 06/23/19 05:05 Microcytosis Not Reportable 06/23/19 05:05 Macrocytosis Rare 06/23/19 05:05 Spherocytes Not Reportable 06/23/19 05:05 Pappenheimer Bodies Not Reportable 06/23/19 05:05 Sickle Cells Not Reportable 06/23/19 05:05 Target Cells Not Reportable 06/23/19 05:05 Tear Drop Cells Not Reportable 06/23/19 05:05 Ovalocytes Not Reportable 06/23/19 05:05 Stomatocytes Rare 06/23/19 05:05 Helmet Cells Not Reportable 06/23/19 05:05 Benoit-Shabbona Bodies Not Reportable 06/23/19 05:05 [place] Rings Not Reportable 06/23/19 05:05 Damien Cells Not Reportable 06/23/19 05:05 Bite Cells Not Reportable 06/23/19 05:05 Crenated Cell Not Reportable 06/23/19 05:05 Elliptocytes Rare 06/23/19 05:05 Acanthocytes (Spur) Not Reportable 06/23/19 05:05 Rouleaux Not Reportable 06/23/19 05:05 Hemoglobin C Crystals Not Reportable 06/23/19 05:05 Schistocytes Not Reportable 06/23/19 05:05 Malaria parasites Not Reportable 06/23/19 05:05 Hernan Bodies Not Reportable 06/23/19 05:05 Hem Pathologist Commnt No 06/23/19 05:05 PT 13.0 Sec. (12.2-14.9) 06/11/19 18:03 INR 0.97 (0.87-1.13) 06/11/19 18:03 D-Dimer 1177.30 ng/mlDDU (0-234) H 06/19/19 14:14 ABG pH 7.391 pH Units (7.350-7.450) 06/20/19 05:30 ABG pCO2 55.4 mm Hg 06/20/19 05:30 ABG pO2 63.4 mm Hg (80.0-90.0) L 06/20/19 05:30 ABG HCO3 32.9 mmol/L (20.0-26.0) H 06/20/19 05:30 ABG O2 Saturation 91.8 % (95.0-99.0) L 06/20/19 05:30 ABG O2 Content 19.4 (0.0-44) 06/20/19 05:30 ABG Base Excess 6.2 mmol/L (-2.0-3.0) H 06/20/19 05:30 ABG Hemoglobin 10.4 gm/dl (12.0-16.0) L 06/20/19 05:30 ABG Carboxyhemoglobin 1.8 % (0.0-5.0) 06/20/19 05:30 ABG Methemoglobin 0.4 % (0.0-1.5) 06/20/19 05:30 Oxyhemoglobin 89.7 % (95.0-99.0) L 06/20/19 05:30 FiO2 40 % 06/20/19 05:30 Sodium 133 mmol/L (137-145) L 06/23/19 05:05 Potassium 5.3 mmol/L (3.6-5.0) H 06/23/19 05:05 Chloride 95.5 mmol/L (98-107) L 06/23/19 05:05 Carbon Dioxide 30 mmol/L (22-30) 06/23/19 05:05 Anion Gap 13 mmol/L 06/23/19 05:05 BUN 24 mg/dL (7-17) H 06/23/19 05:05 Creatinine 0.3 mg/dL (0.7-1.2) L 06/23/19 05:05 Estimated GFR > 60 ml/min 06/23/19 05:05 BUN/Creatinine Ratio 80 % 06/23/19 05:05 Glucose 168 mg/dL (65-100) H 06/23/19 05:05 POC Glucose 174 (70-105) H 06/23/19 05:15 Calcium 8.5 mg/dL (8.4-10.2) 06/23/19 05:05 Phosphorus 4.50 mg/dL (2.5-4.5) 06/15/19 05:08 Magnesium 2.60 mg/dL (1.7-2.3) H 06/23/19 05:05 Ferritin 43.6 ng/mL (13.0-400.0) 06/19/19 14:14 Total Bilirubin 0.30 mg/dL (0.1-1.2) 06/11/19 18:03 AST 14 units/L (5-40) 06/11/19 18:03 ALT 8 units/L (7-56) 06/11/19 18:03 Alkaline Phosphatase 85 units/L (35-129) 06/11/19 18:03 Lactate Dehydrogenase 290 units/L (91-180) H 06/19/19 14:14 Total Creatine Kinase 74 units/L (30-135) 06/12/19 05:09 CK-MB (CK-2) 4.0 ng/mL (0.0-4.0) 06/12/19 05:09 CK-MB (CK-2) Rel Index 5.4 (0-4) H 06/12/19 05:09 Troponin T < 0.010 ng/mL (0.00-0.029) 06/12/19 05:09 C-Reactive Protein 0.10 mg/dL (0.00-1.30) 06/19/19 14:14 Total Protein 6.4 g/dL (6.3-8.2) 06/11/19 18:03 Albumin 3.5 g/dL (3.9-5) L 06/11/19 18:03 Albumin/Globulin Ratio 1.2 % 06/11/19 18:03 Procalcitonin < 0.05 ng/mL (<0.15) 06/19/19 14:14 Urine Color Yellow (Yellow) 06/19/19 12:40 Urine Turbidity Clear (Clear) 06/19/19 12:40 Urine pH 5.0 (5.0-7.0) 06/19/19 12:40 Ur Specific [place] 1.032 (1.003-1.030) H 06/19/19 12:40 Urine Protein 30 mg/dl mg/dL (Negative) 06/19/19 12:40 Urine Glucose (UA) Neg mg/dL (Negative) 06/19/19 12:40 Urine Ketones Neg mg/dL (Negative) 06/19/19 12:40 Urine Blood Sm (Negative) 06/19/19 12:40 Urine Nitrite Neg (Negative) 06/19/19 12:40 Urine Bilirubin Neg (Negative) 06/19/19 12:40 Urine Urobilinogen < 2.0 mg/dL (<2.0) 06/19/19 12:40 Ur Leukocyte Esterase Neg (Negative) 06/19/19 12:40 Urine WBC (Auto) 4.0 /HPF (0.0-6.0) 06/19/19 12:40 Urine RBC (Auto) 44.0 /HPF (0.0-6.0) 06/19/19 12:40 Urine Bacteria (Auto) 1+ /HPF (Negative) 06/19/19 12:40 Hyaline Casts 15 /LPF 06/19/19 12:40 Urine Mucus Few /HPF 06/19/19 12:40 Urine Yeast (Budding) Few /HPF 06/12/19 02:04 Digoxin 1.0 ng/mL (0.9-2.0) 06/20/19 05:40 Salicylates 1.0 mg/dL (2.8-20.0) L 06/11/19 18:03 Acetaminophen < 5.0 ug/mL (10.0-30.0) L 06/11/19 18:03 Coronavirus (PCR) Negative (Negative) 06/19/19 10:33 Blood Type O POSITIVE 06/19/19 10:08 Antibody Screen Negative 06/19/19 10:08 Microbiology: Microbiology 06/19/19 10:10 Peripheral/Venous Blood Culture - Preliminary NO GROWTH AFTER 72 HOURS 06/19/19 10:10 Peripheral/Venous Blood Culture - Preliminary NO GROWTH AFTER 72 HOURS Harley/IV: Voiding Method Indwelling Catheter IV Catheter Type [Right Foot] INT / Saline Lock IV Catheter Type [Right Upper INT / Saline Lock arm] IV Catheter Type [Left Peripheral IV Antecubital] IV Catheter Type [Right Wrist] Peripheral IV IV Catheter Type [Right Hand] Peripheral IV Active Medications - Current Medications Current Medications: Generic Name Dose Route Start Last Admin Trade Name Freq PRN Reason Stop Dose Admin Acetaminophen 650 mg 06/11/19 22:48 06/20/19 08:03 Tylenol PO 650 mg Q4H PRN Administration Pain MILD(1-3)/Fever >100.5/PRAJAPATI Albuterol 2.5 mg 06/14/19 08:20 Proventil IH Q4HRT PRN Shortness Of Breath Albuterol/Ipratropium 1 ampul 06/14/19 14:00 06/23/19 08:55 Duoneb *Not For Prn Use* IH 1 ampul TIDRT DOMINICK Administration Alprazolam 0.25 mg 06/13/19 10:23 06/22/19 09:00 Xanax PO 0.25 mg Q8H PRN Administration Anxiety Amiodarone HCl 100 mg 06/22/19 10:00 06/22/19 09:10 Cordarone PO 100 mg QDAY DOMINICK Administration Lipase/Protease/Amylase 1 each 06/13/19 17:52 Pancreazmarlene Pereira 10,500 Unit FEEDTUBE PRN PRN For Clogged Feeding Tube Arformoterol Tartrate 15 mcg 06/14/19 20:00 06/23/19 08:55 Brovana Nebu IH 15 mcg Q12HRT DOMINICK Administration Budesonide 0.5 mg 06/14/19 20:00 06/23/19 08:55 Pulmicort IH 0.5 mg Q12HRT DOMINICK Administration Dextrose 50 ml 06/11/19 22:48 D50w (25gm) Syringe IV Q30MIN PRN Hypoglycemia Protocol Digoxin 0.125 mg 06/22/19 17:00 06/22/19 17:12 Lanoxin IV 0.125 mg Q48HR@1700 DOMINICK Administration Diltiazem HCl 30 mg 06/16/19 11:30 06/23/19 05:04 Cardizem PO Not Given Q8HR DOMINICK Docusate Sodium 100 mg 06/18/19 11:00 06/22/19 22:13 Colace PO 100 mg BID DOMINICK Administration Hydrophilic Ointment 1 applic 06/11/19 17:44 Vaseline Lip Therapy TP Q2HR PRN Dry Lips Fentanyl Citrate 2,000 mcg in 100 mls @ 3.742 mls/hr 06/11/19 18:00 06/23/19 03:24 Fentanyl Drip Premix IV 1 mcg/kg/hr TITR DOMINICK 3.742 mls/hr Administration Protocol 1 MCG/KG/HR Lorazepam 100 mg/ Sodium 100 mls @ 1 mls/hr 06/11/19 18:00 06/22/19 22:31 Chloride/ Miscellaneous IV 1 mg/hr Information TITR DOMINICK 1 mls/hr Administration Protocol 1 MG/HR Cefepime HCl 1 gm in 100 mls @ 200 mls/hr 06/14/19 14:00 06/23/19 05:03 Cefepime/Ns 1 Gm/100 Ml IV 06/28/19 06:29 200 mls/hr Q8HR DOMINICK Administration Protocol Insulin Human Lispro 0 unit 06/12/19 00:00 06/23/19 05:08 Humalog SUB-Q 2 unit Q6HR [facility] Administration Protocol Lansoprazole 30 mg 06/13/19 11:00 06/22/19 09:10 Prevacid Solutab FEEDTUBE 30 mg QDAY DOMINICK Administration Lorazepam 2 mg 06/21/19 14:45 06/22/19 10:28 Ativan IV 2 mg Q6H PRN Administration Agitation Magnesium Hydroxide 30 ml 06/22/19 09:51 Milk Of Magnesia PO QDAY PRN Constipation Methylprednisolone Sodium Succinate 60 mg 06/17/19 12:00 06/23/19 05:03 Solu-Medrol IV 60 mg Q6HR DOMINICK Administration Metoprolol Tartrate 2.5 mg 06/19/19 11:11 06/19/19 11:48 Metoprolol IV 2.5 mg Q4H PRN Administration HR>130 Multi-Ingred Cream/Lotion/Oil/Oint 1 applic 06/11/19 17:44 Artificial Tears Ophth Oint OU Q4HR PRN Dry Eye(s) Ondansetron HCl 4 mg 06/11/19 22:48 Zofran IV Q8H PRN Nausea And Vomiting Polyethylene Glycol 17 gm 06/20/19 14:00 06/21/19 16:05 Miralax 3350 PO 17 gm BID PRN Administration Constipation Quetiapine Fumarate 300 mg 06/13/19 11:00 06/22/19 22:13 Seroquel PO 300 mg BID DOMINICK Administration Simple Syrup 15 ml 06/13/19 17:52 Simple Syrup FEEDTUBE PRN PRN Hypoglycemia Simple Syrup 30 ml 06/13/19 17:52 Simple Syrup FEEDTUBE PRN PRN Hypoglycemia Sodium Bicarbonate 325 mg 06/13/19 17:52 Sodium Bicarbonate FEEDTUBE PRN PRN For Clogged Feeding Tube Sodium Chloride 10 ml 06/12/19 10:00 06/22/19 22:14 Sodium Chloride Flush Syringe 10 Ml IV 10 ml BID DOMINICK Administration Sodium Chloride 10 ml 06/11/19 22:48 06/18/19 21:06 Sodium Chloride Flush Syringe 10 Ml IV 10 ml PRN PRN Administration LINE FLUSH Venlafaxine HCl 75 mg 06/13/19 14:00 06/22/19 22:14 Effexor PO 75 mg TID DOMINICK Administration Nutrition/Malnutrition Assess - Dietary Evaluation Nutrition/Malnutrition Findings: Nutrition Notes Start: 06/12/19 11:05 Freq: Status: Active Protocol: Document 06/22/19 12:13 LM (Rec: 06/22/19 12:36 LM [email or web address]) Nutrition Notes Initial or Follow up Reassessment Current Diagnosis COPD,Coronary Artery Disease, Hypertension,Heart Failure, Respiratory Failure Other Pertinent Diagnosis COPD exacerbation Current Diet TF - Promote at 60ml/hr Labs/Tests reviewed Pertinent Medications reviewed Height 5 ft Weight 68 kg [place] Body Weight (kg) 45.45 BMI 29.2 Subjective/Other Information Promote running and pt tolerating TF. Na 137 yesterday. Percent of energy/protein needs met: 100%/99% Burn Absent Trauma Absent Current % PO Negligible Minimum of two criteria No #1 Nutrition Diagnosis Inadequate oral intake Diagnosis Progress(for reassessment Continues documentation) Is patient on ventilator? Yes Is Patient Ambulatory and/or Out of Bed No REE-([facility]-confined to bed) 1404.840 Calculation Used for Recommendations [facility] Additional Notes Pro needs 2g/kg IBW: 91g/day 1ml/kcal Nutrition Intervention Change Diet Order: Continue TF Nutrition Support: Promote 1.0 at 60ml/hr Flush 50ml q4h Kcal 1,440 Protein (gm) 90 Fluid (mL) 1,208 Goal #1 TF tolerance Goal #2 Meet at least 75% of energy and protein needs Anticipated Discharge Needs: Unable to identify at this time Follow-Up By: 06/25/19 Additional Comments F/U for TF tolerance
[2019-06-23] MEDS: DOCUSATE SODIUM 100 MG/10 ML ORAL LIQD PO SCH ×2 (09:31→21:42)
[2019-06-23] MEDS: AMIODARONE 200 MG TAB PO SCH (09:31)
[2019-06-23] MEDS: VENLAFAXINE 75 MG TAB PO SCH ×3 (09:31→20:16)
[2019-06-23] MEDS: QUEtiapine 100 MG TAB PO SCH ×2 (09:31→21:43)
[2019-06-23] MEDS: LANSOPRAZOLE 30 MG SOLUTAB FEEDTUBE SCH (09:31)
--- NOTE | 2019-06-23 10:31 | Progress Note ---
Assessment and Plan Paroxysmal Atrial flutter/afib/MAT currently in sinus rhythm on amiodarone, diltiazem and digoxin for suppression. Dig level at 1.0 on 06/19/19. not on anticoagulation secondary to history of melena and anemia. 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 She did undergo PCI of the mid LAD using bare metal stent. Recommend: Continue oral Cardizem, Amiodarone and Digoxin as tolerated for paroxysmal atrial flutter. Otherwise, conservative cardiac management. Subjective Date of service: 06/23/19 Principal diagnosis: Ac and ch hypoxic & hypercapnic resp failure; AE-COPD; Tobacco use disorder Interval history: No cardiac events overnight. Stable sinus rhythm on telemetry. Objective Vital Signs Temp Pulse Pulse Pulse Resp Resp BP 06/23/19 09:25 67 18 06/23/19 08:52 56 L 110/52 06/23/19 08:30 50 L 16 116/55 06/23/19 08:16 54 L 16 105/52 06/23/19 08:00 97.1 F L 52 L 15 130/33 06/23/19 07:46 54 L 16 130/33 06/23/19 07:30 52 L 16 114/56 06/23/19 07:16 54 L 15 114/56 06/23/19 07:00 52 L 16 114/56 06/23/19 06:46 55 L 16 107/54 06/23/19 06:30 54 L 15 112/55 06/23/19 06:16 54 L 16 112/53 06/23/19 06:00 56 L 17 116/59 06/23/19 05:46 50 L 15 116/59 06/23/19 05:30 55 L 16 137/70 06/23/19 05:16 59 L 18 137/70 06/23/19 05:12 61 127/67 06/23/19 05:04 58 L 06/23/19 05:00 65 12 99/58 06/23/19 04:46 53 L 18 99/58 06/23/19 04:30 55 L 17 102/54 06/23/19 04:16 59 L 13 109/59 06/23/19 04:00 98.0 F 55 L 10 L 107/56 06/23/19 03:46 56 L 15 105/54 06/23/19 03:30 54 L 15 111/57 06/23/19 03:15 54 L 16 111/57 06/23/19 03:00 50 L 16 107/58 06/23/19 02:46 53 L 16 108/55 06/23/19 02:30 59 L 13 102/60 06/23/19 02:16 53 L 16 114/56 06/23/19 02:00 57 L 16 100/51 06/23/19 01:46 53 L 13 100/51 06/23/19 01:30 52 L 11 L 101/54 06/23/19 01:16 52 L 13 98/53 06/23/19 01:00 53 L 16 91/47 06/23/19 00:45 54 L 16 95/53 06/23/19 00:37 53 L 95/51 06/23/19 00:30 55 L 15 95/51 06/23/19 00:16 55 L 16 91/45 06/23/19 00:00 97.8 F 57 L 16 89/45 06/22/19 23:55 66 06/22/19 23:54 57 L 17 93/48 06/22/19 23:46 59 L 16 93/48 06/22/19 23:30 61 16 104/50 06/22/19 23:16 58 L 14 96/45 06/22/19 23:00 57 L 16 132/68 06/22/19 22:46 66 17 132/68 06/22/19 22:30 115 H 15 108/56 06/22/19 22:16 60 13 108/56 06/22/19 22:08 62 107/53 06/22/19 22:00 60 12 107/53 06/22/19 21:46 63 13 108/56 06/22/19 21:30 63 12 106/57 06/22/19 21:15 70 10 L 110/54 06/22/19 21:02 61 16 06/22/19 21:00 63 17 107/59 06/22/19 20:54 69 113/57 06/22/19 20:46 65 18 113/57 05/05/20 20:30 66 14 110/53 05/05/20 20:16 65 13 109/58 05/05/20 20:00 97.0 F L 66 15 103/55 05/05/20 19:46 66 16 111/54 05/05/20 19:30 65 12 103/55 05/05/20 19:16 65 10 L 112/59 05/05/20 19:00 64 11 L 117/54 05/05/20 18:46 65 14 109/56 05/05/20 18:30 65 16 109/51 05/05/20 18:15 70 16 100/52 05/05/20 18:00 69 12 107/54 05/05/20 17:45 68 14 106/55 05/05/20 17:30 67 13 105/56 05/05/20 17:15 67 13 102/50 05/05/20 17:12 69 102/52 05/05/20 17:00 66 10 L 102/52 05/05/20 16:46 67 13 100/50 05/05/20 16:30 71 14 102/53 05/05/20 16:16 76 13 112/56 05/05/20 16:00 98.5 F 80 96 H 11 L 110/58 05/05/20 15:45 86 16 120/68 05/05/20 15:37 91 H 15 114/64 05/05/20 15:30 77 15 128/65 05/05/20 15:16 78 12 128/65 05/05/20 15:00 96 H 17 130/73 05/05/20 14:46 82 15 141/71 05/05/20 14:30 61 11 L 99/56 05/05/20 14:23 62 16 05/05/20 14:15 62 10 L 97/55 05/05/20 14:00 65 14 95/53 05/05/20 13:45 71 14 102/52 05/05/20 13:30 79 10 L 108/58 05/05/20 13:24 91 H 114/64 05/05/20 13:15 90 15 108/63 05/05/20 13:00 103 H 15 114/80 05/05/20 12:46 111 H 14 114/80 05/05/20 12:30 97 H 15 106/68 05/05/20 12:15 93 H 13 101/68 050520 12:00 98.8 F 104 H 96 H 21 85/58 05/0520 11:45 96 H 13 103/61 050520 11:30 99 H 16 85/58 050520 11:15 100 H 20 96/61 050520 11:10 63 14 104/51 0505 11:00 104 H 24 96/57 0505 10:46 109 H 15 100/55 Pulse Ox 06/23/19 09:25 05 08:52 95 06/23/19 08:30 99 06/23/19 08:16 97 06/23/19 08:00 93 06/23/19 07:46 93 06/23/19 07:30 97 06/23/19 07:16 88 06/23/19 07:00 97 06/23/19 06:46 98 06/23/19 06:30 95 06/23/19 06:16 97 06/23/19 06:00 98 06/23/19 05:46 98 06/23/19 05:30 99 06/23/19 05:16 95 06/23/19 05:12 97 06/23/19 05:04 06/23/19 05:00 99 06/23/19 04:46 91 06/23/19 04:30 92 06/23/19 04:16 91 06/23/19 04:00 96 06/23/19 03:46 96 06/23/19 03:30 94 06/23/19 03:15 95 06/23/19 03:00 96 06/23/19 02:46 97 06/23/19 02:30 85 06/23/19 02:16 93 06/23/19 02:00 91 06/23/19 01:46 92 06/23/19 01:30 91 06/23/19 01:16 89 06/23/19 01:00 91 06/23/19 00:45 94 06/23/19 00:37 96 06/23/19 00:30 92 06/23/19 00:16 93 06/23/19 00:00 96 06/22/19 23:55 0505 23:54 95 06/22/19 23:46 96 05/05/20 23:30 96 05/05/20 23:16 97 05/05/20 23:00 97 05/05/20 22:46 97 05/05/20 22:30 86 05/05/20 22:16 90 05/05/20 22:08 05/05/20 22:00 92 05/05/20 21:46 97 05/05/20 21:30 96 05/05/20 21:15 96 05/05/20 21:02 05/05/20 21:00 94 05/05/20 20:54 94 05/05/20 20:46 97 05/05/20 20:30 97 05/05/20 20:16 97 05/05/20 20:00 97 05/05/20 19:46 98 05/05/20 19:30 98 05/05/20 19:16 97 05/05/20 19:00 96 05/05/20 18:46 97 05/05/20 18:30 97 05/05/20 18:15 96 05/05/20 18:00 97 05/05/20 17:45 96 05/05/20 17:30 97 05/05/20 17:15 97 05/05/20 17:12 05/05/20 17:00 98 05/05/20 16:46 97 05/05/20 16:30 96 05/05/20 16:16 96 05/05/20 16:00 96 05/05/20 15:45 96 05/05/20 15:37 97 05/05/20 15:30 96 05/05/20 15:16 95 05/05/20 15:00 95 05/05/20 14:46 96 05/05/20 14:30 96 05/05/20 14:23 05/05/20 14:15 97 05/05/20 14:00 97 05/05/20 13:45 99 05/05/20 13:30 97 05/05/20 13:24 05/05/20 13:15 98 05/05/20 13:00 98 05/05/20 12:46 97 05/05/20 12:30 97 05/05/20 12:15 97 05/05/20 12:00 97 05/05/20 11:45 96 05/05/20 11:30 95 05/05/20 11:15 94 05/05/20 11:10 93 06/22/19 11:00 93 06/22/19 10:46 93 - Physical Examination General: Other (intubated on the vent) HEENT: Positive: Other (intubated) Cardiac: Positive: Reg Rate and Rhythm - Labs and Meds CBC 06/23/19 Range/Units 05:05 WBC 11.5 H (4.5-11.0) K/mm3 RBC 4.30 (3.65-5.03) M/mm3 Hgb 10.5 (10.1-14.3) gm/dl Hct 35.0 (30.3-42.9) % Plt Count 98 L (140-440) K/mm3 Comprehensive Metabolic Panel 06/23/19 Range/Units 05:05 Sodium 133 L (137-145) mmol/L Potassium 5.3 H (3.6-5.0) mmol/L Chloride 95.5 L (98-107) mmol/L Carbon Dioxide 30 (22-30) mmol/L BUN 24 H (7-17) mg/dL Creatinine 0.3 L (0.7-1.2) mg/dL Glucose 168 H (65-100) mg/dL Calcium 8.5 (8.4-10.2) mg/dL - Allied health notes Allied health notes reviewed: RT
[2019-06-23] MEDS ORDERED: FUROSEMIDE 20 MG/2 ML INJ IV ONE (11:00)
[2019-06-23] MEDS: methylPREDNISolone Sod Succinate 40 MG/1 ML INJ IV SCH ×3 (12:54→23:43)
[2019-06-23 15:41] LABS: Heparin-Induced Platelet Antib Negative (Negative); Unfractionated Heparin Negative (Negative)
--- NOTE | 2019-06-23 15:45 | Progress Note ---
Assessment and Plan Cultures: Blood culture 06/11/2019 no growth Sputum culture 06/11/2019 pansensitive Pseudomonas Sputum culture 06/19/2019 Pseudomonas A/P: 59-year-old female past medical history GERD, tobacco abuse, COPD, CAD admitted to the hospital with COPD exacerbation admitted with acute hypoxic respiratory failure #Pseudomonas pneumonia: patient has been intubated for some time, and previously had Pseudomonas pneumonia. May have some colonization of the tube. Regardless, would continue to treat with meropenem, and may need up to 14 days treatment for a VAP. #COPD: High risk of respiratory failure as above. #Tobacco abuse Recs: -Currently on meropenem per culture results. May need up to 14 days. Thank you for the consult, we will continue to follow. Shukri Malone MD [facility] ([facility]) M: [phone] O: [phone] F: [phone] Subjective Date of service: 06/23/19 Principal diagnosis: Ac and ch hypoxic & hypercapnic resp failure; AE-COPD; Tobacco use disorder Interval history: Afebrile today. Slightly improved white count. Largely stable, critically ill. Objective - Exam Narrative Exam: Physical Exam: Constitutional: Intubated Head, Ears, Nose: Normocephalic, atraumatic. Eyes: Conjunctivae/corneas clear. Neck: Intubated Oral: Intubated Cardiovascular: S1, S2 normal. Respiratory: Good air entry, clear to auscultation bilaterally GI: Soft, non-tender; bowel sounds normal. No peritoneal signs. Musculoskeletal: No pedal edema, no cyanosis. Skin: No rash or abscess Hem/Lymphatic: No palpable cervical or supraclavicular nodes. No lymphangitis Psych: Sedated Neurological: Sedated - Constitutional Vitals: Vital Signs Temp Pulse Resp BP Pulse Ox 97.8 F 54 L 16 114/58 96 06/23/19 12:00 06/23/19 14:33 06/23/19 14:33 06/23/19 14:00 06/23/19 14:00 Temperature -Last 24 Hours Temperature 97.8 F Temperature 97.1 F Temperature 98.0 F Temperature 97.8 F Temperature 97.0 F Temperature 98.5 F - Labs CBC & Chem 7: 06/23/19 05:05 06/23/19 05:05 Labs: Abnormal lab results 06/22/19 06/22/19 06/23/19 Range/Units 12:11 18:27 00:12 WBC (4.5-11.0) K/mm3 MCH (28-32) pg RDW (13.2-15.2) % Plt Count (140-440) K/mm3 Seg Neuts % (Manual) (40.0-70.0) % Lymphocytes % (Manual) (13.4-35.0) % Seg Neutrophils # Man (1.8-7.7) K/mm3 Lymphocytes # (Manual) (1.2-5.4) K/mm3 ABG pO2 (80.0-90.0) mm Hg ABG HCO3 (20.0-26.0) mmol/L ABG O2 Saturation (95.0-99.0) % ABG Base Excess (-2.0-3.0) mmol/L ABG Hemoglobin (12.0-16.0) gm/dl Oxyhemoglobin (95.0-99.0) % Sodium (137-145) mmol/L Potassium (3.6-5.0) mmol/L Chloride (98-107) mmol/L BUN (7-17) mg/dL Creatinine (0.7-1.2) mg/dL Glucose (65-100) mg/dL POC Glucose 138 H 169 H 154 H (70-105) Magnesium (1.7-2.3) mg/dL 06/23/19 06/23/19 06/23/19 Range/Units 05:05 05:05 05:15 WBC 11.5 H (4.5-11.0) K/mm3 MCH 25 L (28-32) pg RDW 17.5 H (13.2-15.2) % Plt Count 98 L (140-440) K/mm3 Seg Neuts % (Manual) 88.0 H (40.0-70.0) % Lymphocytes % (Manual) 4.0 L (13.4-35.0) % Seg Neutrophils # Man 10.1 H (1.8-7.7) K/mm3 Lymphocytes # (Manual) 0.5 L (1.2-5.4) K/mm3 ABG pO2 (80.0-90.0) mm Hg ABG HCO3 (20.0-26.0) mmol/L ABG O2 Saturation (95.0-99.0) % ABG Base Excess (-2.0-3.0) mmol/L ABG Hemoglobin (12.0-16.0) gm/dl Oxyhemoglobin (95.0-99.0) % Sodium 133 L (137-145) mmol/L Potassium 5.3 H (3.6-5.0) mmol/L Chloride 95.5 L (98-107) mmol/L BUN 24 H (7-17) mg/dL Creatinine 0.3 L (0.7-1.2) mg/dL Glucose 168 H (65-100) mg/dL POC Glucose 174 H (70-105) Magnesium 2.60 H (1.7-2.3) mg/dL 06/23/19 06/23/19 Range/Units 08:50 12:00 WBC (4.5-11.0) K/mm3 MCH (28-32) pg RDW (13.2-15.2) % Plt Count (140-440) K/mm3 Seg Neuts % (Manual) (40.0-70.0) % Lymphocytes % (Manual) (13.4-35.0) % Seg Neutrophils # Man (1.8-7.7) K/mm3 Lymphocytes # (Manual) (1.2-5.4) K/mm3 ABG pO2 56.9 L (80.0-90.0) mm Hg ABG HCO3 33.2 H (20.0-26.0) mmol/L ABG O2 Saturation 88.0 L (95.0-99.0) % ABG Base Excess 7.0 H (-2.0-3.0) mmol/L ABG Hemoglobin 9.9 L (12.0-16.0) gm/dl Oxyhemoglobin 86.4 L (95.0-99.0) % Sodium (137-145) mmol/L Potassium (3.6-5.0) mmol/L Chloride (98-107) mmol/L BUN (7-17) mg/dL Creatinine (0.7-1.2) mg/dL Glucose (65-100) mg/dL POC Glucose 168 H (70-105) Magnesium (1.7-2.3) mg/dL
[2019-06-23] MEDS: LORazepam 2 MG/ML VIAL IV PRN (21:42)
[2019-06-24] MEDS: dilTIAZem 30 MG TAB PO SCH ×4 (05:20→23:18)
[2019-06-24] MEDS: methylPREDNISolone Sod Succinate 40 MG/1 ML INJ IV SCH ×3 (05:26→18:23)
[2019-06-24] MEDS: CEFEPIME/NS 1 GM/100 ML 1 GM/100 ML BAG IV SCH ×3 (05:26→21:04)
[2019-06-24] MEDS: INSULIN LISPRO 100 UNIT/ML SUB-Q SCH ×3 (05:57→18:28)
--- NOTE | 2019-06-24 09:26 | Progress Note ---
Assessment and Plan Assessment and plan: --COVID-19 was ruled out. --Ac. hypoxic,hypercapnic resp. failure: On vent > 96 hours Nebulizers, IV steroids, IV antibiotics inhalation steroids Pulmonary critical following, supportive care Wean as tolerated and extubate --sepsis/pneumonia/sputum Pseudomonas 06/11/2019; present on admission ID following , continue cefepime Sputum cultures again positive Pseudomonas on 06/19/2019 --Left lung basilar density; pneumonia Sputum cultures positive for Pseudomonas Continue cefepime --Paroxysmal A. fib/flutter; RVR On amiodarone, digoxin and Cardizem Closely monitor, cardiology following-digoxin adjusted to 0.125 mg every other day per cardiology Changed amiodarone to 100 mg daily No chronic anticoagulation due to history of GI bleed --History of coronary artery disease/CHF Low-dose Lasix, continue other cardiac meds --Hypernatremia; resolved monitor sodium levels --History of depression; Resume antidepressive medications --Ongoing tobacco use; Will nurses' association counselor smoking cessation when patient is more stable Nicotine patch as needed --Obesity; BMI 32.2 Patient needs weight reduction when medically stable --Thrombocytopenia; HIT antibody negative --Tube feeding diet; per dietary recommendations --DVT prophylaxis; Lovenox --Full CODE STATUS Restraints in place. Patient is critically ill with poor prognosis Closely monitor the patient and adjust management as needed Follow data warehouse consultant recommendations The high probability of a clinically significant, sudden or life threatening d eterioration of the [respiratory, CVS] system(s) required my full and direct attention, intervention and personal management. The aggregate critical care time was [32] minutes. This time is in addition to time spent performing reported procedures but includes the following: [x] Data Review and interpretation [x] Patient assessment and monitoring of vital signs [x] Documentation [x] Medication orders and management Critical care time 35 minutes Monitor closely and adjust management as needed History Interval history: Patient seen and examined in her room in ICU this morning Patient's chart overnight events reviewed Remains intubated on ventilatory support Trial of weaning parameters Not in acute distress Vital signs noted Hospitalist Physical - Constitutional Vitals: Temp Pulse Resp BP Pulse Ox 97.9 F 60 16 112/55 99 06/24/19 08:00 06/24/19 08:16 06/24/19 08:16 06/24/19 08:16 06/24/19 08:16 General appearance: Present: no acute distress, well-nourished, obese, other (Intubated on ventilatory support sedated) - EENT Eyes: Present: PERRL, EOM intact - Neck Neck: Present: supple, normal ROM - Respiratory Respiratory effort: normal Respiratory: bilateral: diminished, rhonchi, negative: rales, wheezing - Cardiovascular Rhythm: regular Heart Sounds: Present: S1 & S2 - Extremities Extremities: no ischemia, No edema - Abdominal General gastrointestinal: soft, non-tender, non-distended, normal bowel sounds - Integumentary Integumentary: Present: clear, warm - Psychiatric Psychiatric: appropriate mood/affect, cooperative - Neurologic Neurologic: CNII-XII intact, moves all extremities Results - Labs CBC & Chem 7: 06/23/19 05:05 06/23/19 05:05 Labs: Laboratory Last Values WBC 11.5 K/mm3 (4.5-11.0) H 06/23/19 05:05 RBC 4.30 M/mm3 (3.65-5.03) 06/23/19 05:05 Hgb 10.5 gm/dl (10.1-14.3) 06/23/19 05:05 Hct 35.0 % (30.3-42.9) 06/23/19 05:05 MCV 82 fl (79-97) 06/23/19 05:05 MCH 25 pg (28-32) L 06/23/19 05:05 MCHC 30 % (30-34) 06/23/19 05:05 RDW 17.5 % (13.2-15.2) H 06/23/19 05:05 Plt Count 98 K/mm3 (140-440) L 06/23/19 05:05 Lymph % (Auto) 13.7 % (13.4-35.0) 06/11/19 18:03 [place] % (Auto) 10.3 % (0.0-7.3) H 06/11/19 18:03 Eos % (Auto) 0.8 % (0.0-4.3) 06/11/19 18:03 Baso % (Auto) 0.8 % (0.0-1.8) 06/11/19 18:03 Lymph # 1.1 K/mm3 (1.2-5.4) L 06/11/19 18:03 [place] # 0.8 K/mm3 (0.0-0.8) 06/11/19 18:03 Eos # 0.1 K/mm3 (0.0-0.4) 06/11/19 18:03 Baso # 0.1 K/mm3 (0.0-0.1) 06/11/19 18:03 Add Manual Diff Complete 06/23/19 05:05 Total Counted 100 06/23/19 05:05 Seg Neutrophils % Business Performance Advisor 06/23/19 05:05 Seg Neuts % (Manual) 88.0 % (40.0-70.0) H 06/23/19 05:05 Band Neutrophils % 1.0 % 06/23/19 05:05 Lymphocytes % (Manual) 4.0 % (13.4-35.0) L 06/23/19 05:05 Reactive Lymphs % (Man) 0 % 06/23/19 05:05 Monocytes % (Manual) 7.0 % (0.0-7.3) 06/23/19 05:05 Eosinophils % (Manual) 0 % (0.0-4.3) 06/23/19 05:05 Basophils % (Manual) 0 % (0.0-1.8) 06/23/19 05:05 Metamyelocytes % 0 % 06/23/19 05:05 Myelocytes % 0 % 06/23/19 05:05 Promyelocytes % 0 % 06/23/19 05:05 Blast Cells % 0 % 06/23/19 05:05 Nucleated RBC % Not Reportable 06/23/19 05:05 Seg Neutrophils # 6.0 K/mm3 (1.8-7.7) 06/11/19 18:03 Seg Neutrophils # Man 10.1 K/mm3 (1.8-7.7) H 06/23/19 05:05 Band Neutrophils # 0.1 K/mm3 06/23/19 05:05 Lymphocytes # (Manual) 0.5 K/mm3 (1.2-5.4) L 06/23/19 05:05 Abs React Lymphs (Man) 0.0 K/mm3 06/23/19 05:05 Monocytes # (Manual) 0.8 K/mm3 (0.0-0.8) 06/23/19 05:05 Eosinophils # (Manual) 0.0 K/mm3 (0.0-0.4) 06/23/19 05:05 Basophils # (Manual) 0.0 K/mm3 (0.0-0.1) 06/23/19 05:05 Metamyelocytes # 0.0 K/mm3 06/23/19 05:05 Myelocytes # 0.0 K/mm3 06/23/19 05:05 Promyelocytes # 0.0 K/mm3 06/23/19 05:05 Blast Cells # 0.0 K/mm3 06/23/19 05:05 WBC Morphology Not Reportable 06/23/19 05:05 Hypersegmented Neuts Not Reportable 06/23/19 05:05 Hyposegmented Neuts Not Reportable 06/23/19 05:05 Hypogranular Neuts Not Reportable 06/23/19 05:05 Smudge Cells Not Reportable 06/23/19 05:05 Toxic Granulation Not Reportable 06/23/19 05:05 Toxic Vacuolation Not Reportable 06/23/19 05:05 Dohle Bodies Not Reportable 06/23/19 05:05 Pelger-Huet Anomaly Not Reportable 06/23/19 05:05 Neha Rods Not Reportable 06/23/19 05:05 Platelet Estimate Consistent w auto 06/23/19 05:05 Clumped Platelets Not Reportable 06/23/19 05:05 Plt Clumps, EDTA Not Reportable 06/23/19 05:05 Large Platelets Not Reportable 06/23/19 05:05 Giant Platelets Not Reportable 06/23/19 05:05 Platelet Satelliting Not Reportable 06/23/19 05:05 Plt Morphology Comment Not Reportable 06/23/19 05:05 RBC Morphology Not Reportable 06/23/19 05:05 Dimorphic RBCs Not Reportable 06/23/19 05:05 Polychromasia Not Reportable 06/23/19 05:05 Hypochromasia 1+ 06/23/19 05:05 Poikilocytosis Not Reportable 06/23/19 05:05 Anisocytosis Few 06/23/19 05:05 Microcytosis Not Reportable 06/23/19 05:05 Macrocytosis Rare 06/23/19 05:05 Spherocytes Not Reportable 06/23/19 05:05 Pappenheimer Bodies Not Reportable 06/23/19 05:05 Sickle Cells Not Reportable 06/23/19 05:05 Target Cells Not Reportable 06/23/19 05:05 Tear Drop Cells Not Reportable 06/23/19 05:05 Ovalocytes Not Reportable 06/23/19 05:05 Stomatocytes Rare 06/23/19 05:05 Helmet Cells Not Reportable 06/23/19 05:05 [place] Bodies Not Reportable 06/23/19 05:05 [place] Rings Not Reportable 06/23/19 05:05 [place]ien Cells Not Reportable 06/23/19 05:05 Bite Cells Not Reportable 06/23/19 05:05 Crenated Cell Not Reportable 06/23/19 05:05 Elliptocytes Rare 06/23/19 05:05 Acanthocytes (Spur) Not Reportable 06/23/19 05:05 Rouleaux Not Reportable 06/23/19 05:05 Hemoglobin C Crystals Not Reportable 06/23/19 05:05 Schistocytes Not Reportable 06/23/19 05:05 Malaria parasites Not Reportable 06/23/19 05:05 Hernan Bodies Not Reportable 06/23/19 05:05 Hem Pathologist Commnt No 06/23/19 05:05 PT 13.0 Sec. (12.2-14.9) 06/11/19 18:03 INR 0.97 (0.87-1.13) 06/11/19 18:03 D-Dimer 1177.30 ng/mlDDU (0-234) H 06/19/19 14:14 Heparin Anti-Xa, Unfract Negative (Negative) 06/17/19 22:48 ABG pH 7.388 pH Units (7.350-7.450) 06/23/19 08:50 ABG pCO2 56.3 mm Hg 06/23/19 08:50 ABG pO2 56.9 mm Hg (80.0-90.0) L 06/23/19 08:50 ABG HCO3 33.2 mmol/L (20.0-26.0) H 06/23/19 08:50 ABG O2 Saturation 88.0 % (95.0-99.0) L 06/23/19 08:50 ABG O2 Content 12.1 (0.0-44) 06/23/19 08:50 ABG Base Excess 7.0 mmol/L (-2.0-3.0) H 06/23/19 08:50 ABG Hemoglobin 9.9 gm/dl (12.0-16.0) L 06/23/19 08:50 ABG Carboxyhemoglobin 1.6 % (0.0-5.0) 06/23/19 08:50 ABG Methemoglobin 0.3 % (0.0-1.5) 06/23/19 08:50 Oxyhemoglobin 86.4 % (95.0-99.0) L 06/23/19 08:50 FiO2 50 % 06/23/19 08:50 Sodium 133 mmol/L (137-145) L 06/23/19 05:05 Potassium 5.3 mmol/L (3.6-5.0) H 06/23/19 05:05 Chloride 95.5 mmol/L (98-107) L 06/23/19 05:05 Carbon Dioxide 30 mmol/L (22-30) 06/23/19 05:05 Anion Gap 13 mmol/L 06/23/19 05:05 BUN 24 mg/dL (7-17) H 06/23/19 05:05 Creatinine 0.3 mg/dL (0.7-1.2) L 06/23/19 05:05 Estimated GFR > 60 ml/min 06/23/19 05:05 BUN/Creatinine Ratio 80 % 06/23/19 05:05 Glucose 168 mg/dL (65-100) H 06/23/19 05:05 POC Glucose 184 (70-105) H 06/24/19 05:53 Calcium 8.5 mg/dL (8.4-10.2) 06/23/19 05:05 Phosphorus 4.50 mg/dL (2.5-4.5) 06/15/19 05:08 Magnesium 2.60 mg/dL (1.7-2.3) H 06/23/19 05:05 Ferritin 43.6 ng/mL (13.0-400.0) 06/19/19 14:14 Total Bilirubin 0.30 mg/dL (0.1-1.2) 06/11/19 18:03 AST 14 units/L (5-40) 06/11/19 18:03 ALT 8 units/L (7-56) 06/11/19 18:03 Alkaline Phosphatase 85 units/L (35-129) 06/11/19 18:03 Lactate Dehydrogenase 290 units/L (91-180) H 06/19/19 14:14 Total Creatine Kinase 74 units/L (30-135) 06/12/19 05:09 CK-MB (CK-2) 4.0 ng/mL (0.0-4.0) 06/12/19 05:09 CK-MB (CK-2) Rel Index 5.4 (0-4) H 06/12/19 05:09 Troponin T < 0.010 ng/mL (0.00-0.029) 06/12/19 05:09 C-Reactive Protein 0.10 mg/dL (0.00-1.30) 06/19/19 14:14 Total Protein 6.4 g/dL (6.3-8.2) 06/11/19 18:03 Albumin 3.5 g/dL (3.9-5) L 06/11/19 18:03 Albumin/Globulin Ratio 1.2 % 06/11/19 18:03 Procalcitonin < 0.05 ng/mL (<0.15) 06/19/19 14:14 Urine Color Yellow (Yellow) 06/19/19 12:40 Urine Turbidity Clear (Clear) 06/19/19 12:40 Urine pH 5.0 (5.0-7.0) 06/19/19 12:40 Ur Specific [place] 1.032 (1.003-1.030) H 06/19/19 12:40 Urine Protein 30 mg/dl mg/dL (Negative) 06/19/19 12:40 Urine Glucose (UA) Neg mg/dL (Negative) 06/19/19 12:40 Urine Ketones Neg mg/dL (Negative) 06/19/19 12:40 Urine Blood Sm (Negative) 06/19/19 12:40 Urine Nitrite Neg (Negative) 06/19/19 12:40 Urine Bilirubin Neg (Negative) 06/19/19 12:40 Urine Urobilinogen < 2.0 mg/dL (<2.0) 06/19/19 12:40 Ur Leukocyte Esterase Neg (Negative) 06/19/19 12:40 Urine WBC (Auto) 4.0 /HPF (0.0-6.0) 06/19/19 12:40 Urine RBC (Auto) 44.0 /HPF (0.0-6.0) 06/19/19 12:40 Urine Bacteria (Auto) 1+ /HPF (Negative) 06/19/19 12:40 Hyaline Casts 15 /LPF 06/19/19 12:40 Urine Mucus Few /HPF 06/19/19 12:40 Urine Yeast (Budding) Few /HPF 06/12/19 02:04 Digoxin 0.5 ng/mL (0.9-2.0) L 06/24/19 04:41 Salicylates 1.0 mg/dL (2.8-20.0) L 06/11/19 18:03 Acetaminophen < 5.0 ug/mL (10.0-30.0) L 06/11/19 18:03 Heparin-induced Plt Ab Negative (Negative) 06/17/19 22:48 UF Heparin High Dose 3 % Release 06/17/19 22:48 ESSIE UFH Low Dose 0.1 2 % Release 06/17/19 22:48 ESSIE UFH Low Dose 0.5 1 % Release 06/17/19 22:48 Coronavirus (PCR) Negative (Negative) 06/19/19 10:33 Blood Type O POSITIVE 06/19/19 10:08 Antibody Screen Negative 06/19/19 10:08 Microbiology: Microbiology 06/19/19 10:10 Peripheral/Venous Blood Culture - Preliminary NO GROWTH AFTER 4 DAYS 06/19/19 10:10 Peripheral/Venous Blood Culture - Preliminary NO GROWTH AFTER 4 DAYS Harley/IV: Voiding Method Indwelling Catheter IV Catheter Type [Right Foot] INT / Saline Lock IV Catheter Type [Right Upper INT / Saline Lock arm] IV Catheter Type [Left Peripheral IV Antecubital] IV Catheter Type [Right Wrist] Peripheral IV IV Catheter Type [Right Hand] Peripheral IV Active Medications - Current Medications Current Medications: Generic Name Dose Route Start Last Admin Trade Name Freq PRN Reason Stop Dose Admin Acetaminophen 650 mg 06/11/19 22:48 06/20/19 08:03 Tylenol PO 650 mg Q4H PRN Administration Pain MILD(1-3)/Fever >100.5/PRAJAPATI Albuterol 2.5 mg 06/14/19 08:20 Proventil IH Q4HRT PRN Shortness Of Breath Albuterol/Ipratropium 1 ampul 06/14/19 14:00 06/23/19 20:17 Duoneb *Not For Prn Use* IH 1 ampul TIDRT DOMINICK Administration Alprazolam 0.25 mg 06/13/19 10:23 06/22/19 09:00 Xanax PO 0.25 mg Q8H PRN Administration Anxiety Amiodarone HCl 100 mg 06/22/19 10:00 06/23/19 09:31 Cordarone PO 100 mg QDAY DOMINICK Administration Lipase/Protease/Amylase 1 each 06/13/19 17:52 Pancreazmarlene Pereira 10,500 Unit FEEDTUBE PRN PRN For Clogged Feeding Tube Arformoterol Tartrate 15 mcg 06/14/19 20:00 06/23/19 20:17 Brovana Nebu IH 15 mcg Q12HRT DOMINICK Administration Budesonide 0.5 mg 06/14/19 20:00 06/23/19 20:17 Pulmicort IH 0.5 mg Q12HRT PENDING SALE TO [facility] Administration Dextrose 50 ml 06/11/19 22:48 D50w (25gm) Syringe IV Q30MIN PRN Hypoglycemia Protocol Digoxin 0.125 mg 06/22/19 17:00 06/22/19 17:12 Lanoxin IV 0.125 mg Q48HR@1700 DOMINICK Administration Diltiazem HCl 30 mg 06/16/19 11:30 06/24/19 05:20 Cardizem PO Not Given Q8HR PENDING SALE TO [facility] Docusate Sodium 100 mg 06/18/19 11:00 06/23/19 21:42 Colace PO 100 mg BID DOMINICK Administration Hydrophilic Ointment 1 applic 06/11/19 17:44 Vaseline Lip Therapy TP Q2HR PRN Dry Lips Fentanyl Citrate 2,000 mcg in 100 mls @ 3.742 mls/hr 06/11/19 18:00 06/23/19 23:43 Fentanyl Drip Premix IV 1 mcg/kg/hr TITR DOMINICK 3.742 mls/hr Administration Protocol 1 MCG/KG/HR Cefepime HCl 1 gm in 100 mls @ 200 mls/hr 06/14/19 14:00 06/24/19 05:26 Cefepime/Ns 1 Gm/100 Ml IV 06/28/19 06:29 200 mls/hr Q8HR DOMINICK Administration Protocol Insulin Human Lispro 0 unit 06/12/19 00:00 06/24/19 05:57 Humalog SUB-Q 2 unit Q6HR DOMINICK Administration Protocol Lansoprazole 30 mg 06/13/19 11:00 06/23/19 09:31 Prevacid Solutab FEEDTUBE 30 mg QDAY DOMINICK Administration Lorazepam 2 mg 06/21/19 14:45 06/23/19 21:42 Ativan IV 2 mg Q6H PRN Administration Agitation Magnesium Hydroxide 30 ml 06/22/19 09:51 Milk Of Magnesia PO QDAY PRN Constipation Methylprednisolone Sodium Succinate 40 mg 06/23/19 12:00 06/24/19 05:26 Solu-Medrol IV 40 mg Q6HR DOMINICK Administration Metoprolol Tartrate 2.5 mg 06/19/19 11:11 06/19/19 11:48 Metoprolol IV 2.5 mg Q4H PRN Administration HR>130 Multi-Ingred Cream/Lotion/Oil/Oint 1 applic 06/11/19 17:44 Artificial Tears Ophth Oint OU Q4HR PRN Dry Eye(s) Ondansetron HCl 4 mg 06/11/19 22:48 Zofran IV Q8H PRN Nausea And Vomiting Polyethylene Glycol 17 gm 06/20/19 14:00 06/21/19 16:05 Miralax 3350 PO 17 gm BID PRN Administration Constipation Quetiapine Fumarate 300 mg 06/13/19 11:00 06/23/19 21:43 Seroquel PO 300 mg BID DOMINICK Administration Simple Syrup 15 ml 06/13/19 17:52 Simple Syrup FEEDTUBE PRN PRN Hypoglycemia Simple Syrup 30 ml 06/13/19 17:52 Simple Syrup FEEDTUBE PRN PRN Hypoglycemia Sodium Bicarbonate 325 mg 06/13/19 17:52 Sodium Bicarbonate FEEDTUBE PRN PRN For Clogged Feeding Tube Sodium Chloride 10 ml 06/12/19 10:00 06/23/19 21:43 Sodium Chloride Flush Syringe 10 Ml IV 10 ml BID DOMINICK Administration Sodium Chloride 10 ml 06/11/19 22:48 06/18/19 21:06 Sodium Chloride Flush Syringe 10 Ml IV 10 ml PRN PRN Administration LINE FLUSH Venlafaxine HCl 75 mg 06/13/19 14:00 06/23/19 20:16 Effexor PO 75 mg TID DOMINICK Administration Nutrition/Malnutrition Assess - Dietary Evaluation Nutrition/Malnutrition Findings: Nutrition Notes Start: 06/12/19 11:05 Freq: Status: Active Protocol: Document 06/22/19 12:13 LM (Rec: 06/22/19 12:36 LM [email or web address]) Nutrition Notes Initial or Follow up Reassessment Current Diagnosis COPD,Coronary Artery Disease, Hypertension,Heart Failure, Respiratory Failure Other Pertinent Diagnosis COPD exacerbation Current Diet TF - Promote at 60ml/hr Labs/Tests reviewed Pertinent Medications reviewed Height 5 ft Weight 68 kg [place] Body Weight (kg) 45.45 BMI 29.2 Subjective/Other Information Promote running and pt tolerating TF. Na 137 yesterday. Percent of energy/protein needs met: 100%/99% Burn Absent Trauma Absent Current % PO Negligible Minimum of two criteria No #1 Nutrition Diagnosis Inadequate oral intake Diagnosis Progress(for reassessment Continues documentation) Is patient on ventilator? Yes Is Patient Ambulatory and/or Out of Bed No REE-([facility]-confined to bed) 1404.840 Calculation Used for Recommendations [facility] Additional Notes Pro needs 2g/kg IBW: 91g/day 1ml/kcal Nutrition Intervention Change Diet Order: Continue TF Nutrition Support: Promote 1.0 at 60ml/hr Flush 50ml q4h Kcal 1,440 Protein (gm) 90 Fluid (mL) 1,208 Goal #1 TF tolerance Goal #2 Meet at least 75% of energy and protein needs Anticipated Discharge Needs: Unable to identify at this time Follow-Up By: 06/25/19 Additional Comments F/U for TF tolerance
[2019-06-24] MEDS: ARFORMOTEROL 15 MCG/2 ML NEBU IH SCH ×2 (09:33→21:03)
[2019-06-24] MEDS: BUDESONIDE 0.5 MG/2 ML NEBU IH SCH ×2 (09:33→21:03)
[2019-06-24] MEDS: IPRATROPIUM/ALBUTEROL SULFATE 3 ML AMPUL.NEB IH SCH ×3 (09:33→21:03)
[2019-06-24] MEDS: AMIODARONE 200 MG TAB PO SCH (09:59)
[2019-06-24] MEDS: DOCUSATE SODIUM 100 MG/10 ML ORAL LIQD PO SCH ×2 (09:59→21:01)
[2019-06-24] MEDS: LANSOPRAZOLE 30 MG SOLUTAB FEEDTUBE SCH (10:00)
[2019-06-24] MEDS: VENLAFAXINE 75 MG TAB PO SCH ×3 (10:00→20:32)
[2019-06-24] MEDS: QUEtiapine 100 MG TAB PO SCH ×2 (10:00→21:01)
--- NOTE | 2019-06-24 11:16 | Progress Note ---
Assessment and Plan Paroxysmal Atrial flutter/afib/MAT currently in sinus rhythm on amiodarone, diltiazem and digoxin for suppression. Dig level at 1.0 on 06/19/19. repeat Dig level at 0.5 on 06/24/19. not on anticoagulation secondary to history of melena and anemia. 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 She did undergo PCI of the mid LAD using bare metal stent. Recommend: Continue oral Cardizem, Amiodarone and Digoxin as tolerated for paroxysmal atrial flutter. Otherwise, conservative cardiac management. Subjective Date of service: 06/24/19 Principal diagnosis: Ac and ch hypoxic & hypercapnic resp failure; AE-COPD; Tobacco use disorder Interval history: No cardiac events overnight. Stable sinus rhythm on telemetry. Objective Vital Signs Temp Pulse Pulse Resp Resp BP Pulse Ox 06/24/19 09:55 54 L 16 06/24/19 09:23 59 L 105/57 100 06/24/19 08:16 60 16 112/55 99 06/24/19 08:00 97.9 F 60 16 104/54 99 06/24/19 07:46 58 L 16 108/53 99 06/24/19 07:30 59 L 16 102/50 99 06/24/19 07:16 58 L 16 104/54 99 06/24/19 07:00 59 L 14 102/50 99 06/24/19 06:45 65 14 99/51 99 06/24/19 06:30 60 12 105/54 99 06/24/19 06:16 57 L 13 105/54 100 06/24/19 06:00 64 19 149/81 99 06/24/19 05:46 74 14 149/81 96 06/24/19 05:30 60 17 110/53 100 06/24/19 05:20 58 L 110/53 06/24/19 05:16 59 L 16 110/53 100 06/24/19 05:00 58 L 10 L 107/58 99 06/24/19 04:45 58 L 15 107/58 99 06/24/19 04:32 60 105/56 99 06/24/19 04:30 59 L 16 105/56 100 06/24/19 04:16 62 16 100/51 99 06/24/19 04:00 98.7 F 60 16 100/52 100 06/24/19 03:46 62 14 100/52 100 06/24/19 03:30 62 16 103/51 100 06/24/19 03:16 64 16 103/51 99 06/24/19 03:00 60 16 103/47 99 06/24/19 02:46 63 15 103/47 99 06/24/19 02:30 63 15 98/48 99 06/24/19 02:16 62 11 L 98/48 99 06/24/19 02:00 64 15 96/47 99 06/24/19 01:45 67 16 96/48 99 06/24/19 01:30 77 15 100/50 99 06/24/19 01:15 90 14 103/58 99 06/24/19 01:00 91 H 14 111/59 98 06/24/19 00:45 95 H 14 112/59 98 07 00:30 94 H 16 108/67 97 07 00:25 92 H 108/66 96 06/24/19 00:15 101 H 16 108/66 93 07 00:00 98.9 F 100 H 16 106/64 94 06 23:56 105 H 14 126/47 93 06 23:46 116 H 16 121/63 92 06/23/19 23:41 115 H 17 121/63 92 06/23/19 23:30 120 H 15 115/70 91 06/23/19 23:15 120 H 16 115/70 92 0506 23:00 119 H 15 121/75 91 06 22:45 125 H 16 108/70 91 [id number] 22:30 117 H 16 116/65 93 0506 22:16 116 H 15 106/59 92 06/23/19 22:00 112 H 16 134/76 92 06/23/19 21:46 112 H 16 166/84 90 06/23/19 21:42 105 H 166/84 20 21:30 108 H 16 170/74 93 05 21:16 108 H 24 170/74 90 06 21:00 63 16 96/46 93 06/23/19 20:46 62 15 98/52 93 06/23/19 20:30 59 L 16 117/59 94 06/23/19 20:17 57 L 16 06/23/19 20:16 57 L 16 117/57 99 06/23/19 20:05 60 117/59 99 06/23/19 20:00 98.5 F 58 L 16 113/59 94 06/23/19 19:46 57 L 16 113/59 98 06/23/19 19:30 58 L 16 111/55 98 06/23/19 19:16 59 L 16 110/55 97 06/23/19 19:00 62 15 127/65 98 06/23/19 18:00 77 19 132/69 98 06/23/19 17:46 75 12 134/68 98 06/23/19 17:30 76 18 133/70 98 06/23/19 17:16 79 16 133/70 97 06/23/19 17:00 76 15 112/59 98 06/23/19 16:46 93 H 15 157/50 98 06/23/19 16:44 83 157/50 99 06/23/19 16:30 55 L 16 112/59 94 06/23/19 16:16 58 L 16 106/55 90 06/23/19 16:00 97.5 F L 59 L 16 106/53 92 06/23/19 15:46 63 16 106/53 95 06/23/19 15:30 66 16 140/70 95 06/23/19 15:16 72 11 L 140/70 96 06/23/19 15:00 57 L 16 100/51 97 06/23/19 14:46 56 L 15 100/51 96 06/23/19 14:33 54 L 16 06/23/19 14:30 56 L 15 100/51 95 06/23/19 14:16 59 L 16 105/53 98 06/23/19 14:00 61 17 114/58 96 06/23/19 13:46 66 16 107/56 97 06/23/19 13:30 64 16 124/65 98 06/23/19 13:16 70 15 131/65 100 06/23/19 13:01 76 119/68 06/23/19 13:00 84 9 L 111/62 98 06/23/19 12:46 80 13 111/62 96 06/23/19 12:30 71 13 111/62 98 06/23/19 12:16 71 14 111/64 100 06/23/19 12:00 97.8 F 72 16 111/64 98 06/23/19 11:45 73 13 118/69 100 06/23/19 11:30 70 14 111/61 100 06/23/19 11:16 69 13 113/68 100 - Physical Examination General: Other (intubated on the vent) HEENT: Positive: Other (intubated) Cardiac: Positive: Bradycardia - Allied health notes Allied health notes reviewed: RT
--- NOTE | 2019-06-24 13:36 | Progress Note ---
Assessment and Plan Acute and chronic hypoxic and hypercapnic respiratory failure: Acute exacerbation of COPD Tobacco use disorder/Nicotine dependence (on going) Hypernatremia History of coronary artery disease/CHF History of HTN Chronic narcotic dependence Chronic back pain Anxiety disorder History of depression; Obesity; BMI 32.2 - reduced FiO2 to 50% - increased peep to 8 cm H2O - COVID 19 test negative - continue other care as below - continue rate control per cardiology - continue daily SAT and SBT assessment as tolerated - continue supplemental oxygen with restrictive strategies acutely re: severe COPD (PaO2 of 60 with O2 sats 88-90% is acceptable) - VAP bundle addressed (aspiration precautions; HOB > 40 degrees) - continue bronchodilators with pulmonary hygiene per RT - continue airborne, droplet and contact isolation - limit daily CXR's - Avoid benzodiazepine's, reduce the possibility of delirium - Continue with fentanyl, titrate for RASS of 0 to -1 - Maintenance of sleep-wake cycle, avoid delirium - continue enteral nutritional support at goal rate as tolerated - Accuchecks with glycemic control per SSI for target blood glucose of 140-180 mg/dL while critically ill; avoid hypoglycemia - VTE prophylaxis (Lovenox) - Stress ulcer prophylaxis (Prevacid) - continue systemic Steroids - Empiric Antibiotics (Cefepime); de-escalate per ID rec's - Monitor hemodynamics closely - Avoid delirium; Avoid benzodiazepines - Nicotine withdrawal precautions, nicotine patch - In view of ongoing smoking, recurrent hospital admission, will need to re- address advance directives and goals of care, once the patient is able to be a part of that discussion. Will also address smoking cessation again, once she is able to be a part of that discussion - continue other care per attending / other business analyst consultant's .... re-evaluate in am & prn CONDITION: CRITICAL PROGNOSIS: GUARDED CODE STATUS: FULL CODE The high probability of a clinically significant, sudden or life-threatening deterioration of the respiratory, cardiovascular, neurology, endocrine system(s) required my full and direct attention, intervention and personal management. The aggregate critical care time was [32] minutes without overlap. Time includes spent on; [x] Data Review and interpretation [x] Patient assessment and monitoring of vital signs [x] Documentation [x] Medication orders and management Subjective Date of service: 06/24/19 Principal diagnosis: Ac and ch hypoxic & hypercapnic resp failure; AE-COPD; Tobacco use disorder Interval history: Patient is seen today for: Ac and ch hypoxic hypercapnic resp failure; AE-COPD; Tobacco use disorder/Nicotine dependence; Hypernatremia; HTN (hypotensive at presentation 0; Chronic narcotic dependence ; Chronic back pain; Anxiety dis order Seen and examined at bedside; 24-hour events reviewed; nursing and respiratory care staff consulted; no adverse overnight events reported to me; laying in bed; remains on MVS; FiO2 at 60% with peep at 6; sedated to RASS -1; no emesis or overt aspiration; tolerating tube feeds Objective Vital Signs - 12hr 06/24/19 06/24/19 06/24/19 01:45 02:00 02:16 Temperature Pulse Rate 67 64 62 Pulse Rate [ Bilateral] Respiratory 16 15 11 L Rate Respiratory Rate [Bilateral ] Blood Pressure 96/48 96/47 98/48 O2 Sat by Pulse 99 99 99 Oximetry 06/24/19 06/24/19 06/24/19 02:30 02:46 03:00 Temperature Pulse Rate 63 63 60 Pulse Rate [ Bilateral] Respiratory 15 15 16 Rate Respiratory Rate [Bilateral ] Blood Pressure 98/48 103/47 103/47 O2 Sat by Pulse 99 99 99 Oximetry 06/24/19 06/24/19 06/24/19 03:16 03:30 03:46 Temperature Pulse Rate 64 62 62 Pulse Rate [ Bilateral] Respiratory 16 16 14 Rate Respiratory Rate [Bilateral ] Blood Pressure 103/51 103/51 100/52 O2 Sat by Pulse 99 100 100 Oximetry 06/24/19 06/24/19 06/24/19 04:00 04:16 04:30 Temperature 98.7 F Pulse Rate 60 62 59 L Pulse Rate [ Bilateral] Respiratory 16 16 16 Rate Respiratory Rate [Bilateral ] Blood Pressure 100/52 100/51 105/56 O2 Sat by Pulse 100 99 100 Oximetry 06/24/19 06/24/19 06/24/19 04:32 04:45 05:00 Temperature Pulse Rate 60 58 L 58 L Pulse Rate [ Bilateral] Respiratory 15 10 L Rate Respiratory Rate [Bilateral ] Blood Pressure 105/56 107/58 107/58 O2 Sat by Pulse 99 99 99 Oximetry 06/24/19 06/24/19 06/24/19 05:16 05:20 05:30 Temperature Pulse Rate 59 L 58 L 60 Pulse Rate [ Bilateral] Respiratory 16 17 Rate Respiratory Rate [Bilateral ] Blood Pressure 110/53 110/53 110/53 O2 Sat by Pulse 100 100 Oximetry 06/24/19 06/24/19 06/24/19 05:46 06:00 06:16 Temperature Pulse Rate 74 64 57 L Pulse Rate [ Bilateral] Respiratory 14 19 13 Rate Respiratory Rate [Bilateral ] Blood Pressure 149/81 149/81 105/54 O2 Sat by Pulse 96 99 100 Oximetry 06/24/19 06/24/19 06/24/19 06:30 06:45 07:00 Temperature Pulse Rate 60 65 59 L Pulse Rate [ Bilateral] Respiratory 12 14 14 Rate Respiratory Rate [Bilateral ] Blood Pressure 105/54 99/51 102/50 O2 Sat by Pulse 99 99 99 Oximetry 06/24/19 06/24/19 06/24/19 07:16 07:30 07:46 Temperature Pulse Rate 58 L 59 L 58 L Pulse Rate [ Bilateral] Respiratory 16 16 16 Rate Respiratory Rate [Bilateral ] Blood Pressure 104/54 102/50 108/53 O2 Sat by Pulse 99 99 99 Oximetry 06/24/19 06/24/19 06/24/19 08:00 08:16 08:30 Temperature 97.9 F Pulse Rate 60 60 59 L Pulse Rate [ Bilateral] Respiratory 16 16 15 Rate Respiratory Rate [Bilateral ] Blood Pressure 104/54 112/55 110/53 O2 Sat by Pulse 99 99 99 Oximetry 06/24/19 06/24/19 06/24/19 08:46 09:00 09:16 Temperature Pulse Rate 60 60 57 L Pulse Rate [ Bilateral] Respiratory 20 15 16 Rate Respiratory Rate [Bilateral ] Blood Pressure 110/56 110/56 107/51 O2 Sat by Pulse 99 100 100 Oximetry 06/24/19 06/24/19 06/24/19 09:23 09:30 09:46 Temperature Pulse Rate 59 L 62 58 L Pulse Rate [ Bilateral] Respiratory 14 16 Rate Respiratory Rate [Bilateral ] Blood Pressure 105/57 107/51 101/53 O2 Sat by Pulse 100 100 96 Oximetry 06/24/19 06/24/19 06/24/19 09:55 10:00 10:16 Temperature Pulse Rate 52 L 55 L Pulse Rate [ 54 L Bilateral] Respiratory 15 16 Rate Respiratory 16 Rate [Bilateral ] Blood Pressure 101/53 100/44 O2 Sat by Pulse 99 99 Oximetry 06/24/19 06/24/19 06/24/19 10:30 10:46 11:00 Temperature Pulse Rate 91 H 103 H 96 H Pulse Rate [ Bilateral] Respiratory 15 18 18 Rate Respiratory Rate [Bilateral ] Blood Pressure 100/44 122/65 105/63 O2 Sat by Pulse 100 98 98 Oximetry 06/24/19 06/24/19 06/24/19 11:15 11:30 11:45 Temperature Pulse Rate 93 H 84 87 Pulse Rate [ Bilateral] Respiratory 22 17 11 L Rate Respiratory Rate [Bilateral ] Blood Pressure 108/60 115/66 109/62 O2 Sat by Pulse 97 97 98 Oximetry 06/24/19 06/24/19 06/24/19 12:00 12:15 12:30 Temperature 97.5 F L Pulse Rate 81 80 78 Pulse Rate [ Bilateral] Respiratory 15 17 20 Rate Respiratory Rate [Bilateral ] Blood Pressure 102/63 110/62 114/56 O2 Sat by Pulse 98 99 99 Oximetry 06/24/19 06/24/19 12:39 13:18 Temperature Pulse Rate 79 76 Pulse Rate [ Bilateral] Respiratory Rate Respiratory Rate [Bilateral ] Blood Pressure 114/56 110/57 O2 Sat by Pulse 100 Oximetry Constitutional: no acute distress, other (elderly looking obese CF, normocephalic on MVS without signidficant dyssynchrony) Eyes: non-icteric ENT: oropharynx moist, other (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) Neck: supple, no lymphadenopathy, no JVD Effort: mildly labored Ascultation: Bilateral: diminished breath sounds, rhonchi Percussion: Bilateral: not dull Cardiovascular: regular rate and rhythm Gastrointestinal: normoactive bowel sounds, soft, non-tender, non-distended Integumentary: normal Extremities: no cyanosis, no edema, pulses normal, no ischemia or petechiae Neurologic: non-focal exam (grossly), pupils equal and round, unable to assess Psychiatric: other (Unable to assess re: AMS) CBC and BMP: 06/25/19 04:38 06/25/19 04:38 ABG, PT/INR, D-dimer: ABG ABG pH 7.388 pH Units (7.350-7.450) 06/23/19 08:50 ABG pCO2 56.3 mm Hg 06/23/19 08:50 ABG pO2 56.9 mm Hg (80.0-90.0) L 06/23/19 08:50 ABG O2 Saturation 88.0 % (95.0-99.0) L 06/23/19 08:50 PT/INR, D-dimer PT 13.0 Sec. (12.2-14.9) 06/11/19 18:03 INR 0.97 (0.87-1.13) 06/11/19 18:03 D-Dimer 1177.30 ng/mlDDU (0-234) H 06/19/19 14:14 Abnormal lab findings: Abnormal Labs 06/11/19 06/11/19 06/11/19 18:03 18:03 18:03 WBC Hgb MCH 25 L RDW 19.4 H Plt Count 124 L [place] % (Auto) 10.3 H Lymph # 1.1 L Seg Neutrophils % 74.4 H Seg Neuts % (Manual) Lymphocytes % (Manual) Seg Neutrophils # Man Lymphocytes # (Manual) D-Dimer ABG pH ABG pO2 ABG HCO3 ABG O2 Saturation ABG Base Excess ABG Hemoglobin Oxyhemoglobin Sodium 146 H Potassium Chloride Carbon Dioxide BUN 21 H Creatinine 0.4 L Glucose POC Glucose Calcium Magnesium 2.70 H Lactate Dehydrogenase CK-MB (CK-2) CK-MB (CK-2) Rel Index Albumin 3.5 L Ur Specific [place] Urine WBC (Auto) Digoxin Salicylates 1.0 L Acetaminophen 06/11/19 06/11/19 06/11/19 18:03 18:59 23:22 WBC Hgb MCH RDW Plt Count [place] % (Auto) Lymph # Seg Neutrophils % Seg Neuts % (Manual) Lymphocytes % (Manual) Seg Neutrophils # Man Lymphocytes # (Manual) D-Dimer ABG pH 7.340 L ABG pO2 76.0 L ABG HCO3 34.6 H ABG O2 Saturation ABG Base Excess 7.1 H ABG Hemoglobin 10.9 L Oxyhemoglobin 91.6 L Sodium Potassium Chloride Carbon Dioxide BUN Creatinine Glucose POC Glucose Calcium Magnesium Lactate Dehydrogenase CK-MB (CK-2) 5.5 H CK-MB (CK-2) Rel Index 5.5 H Albumin Ur Specific [place] Urine WBC (Auto) Digoxin Salicylates Acetaminophen < 5.0 L 06/12/19 06/12/19 06/12/19 00:29 02:04 04:20 WBC Hgb MCH RDW Plt Count [place] % (Auto) Lymph # Seg Neutrophils % Seg Neuts % (Manual) Lymphocytes % (Manual) Seg Neutrophils # Man Lymphocytes # (Manual) D-Dimer ABG pH 7.313 L ABG pO2 75.3 L ABG HCO3 29.9 H ABG O2 Saturation 94.3 L ABG Base Excess ABG Hemoglobin 10.8 L Oxyhemoglobin 92.0 L Sodium Potassium Chloride Carbon Dioxide BUN Creatinine Glucose POC Glucose 107 H Calcium Magnesium Lactate Dehydrogenase CK-MB (CK-2) CK-MB (CK-2) Rel Index Albumin Ur Specific [place] Urine WBC (Auto) 30.0 H Digoxin Salicylates Acetaminophen 06/12/19 06/12/19 06/12/19 05:09 05:09 05:09 WBC Hgb MCH 25 L RDW 19.4 H Plt Count 114 L [place] % (Auto) Lymph # Seg Neutrophils % Seg Neuts % (Manual) 91.0 H Lymphocytes % (Manual) 7.0 L Seg Neutrophils # Man Lymphocytes # (Manual) 0.4 L D-Dimer ABG pH ABG pO2 ABG HCO3 ABG O2 Saturation ABG Base Excess ABG Hemoglobin Oxyhemoglobin Sodium 147 H Potassium Chloride 107.4 H Carbon Dioxide BUN 19 H Creatinine 0.4 L Glucose 110 H POC Glucose Calcium 8.2 L Magnesium Lactate Dehydrogenase CK-MB (CK-2) CK-MB (CK-2) Rel Index 5.4 H Albumin Ur Specific [place] Urine WBC (Auto) Digoxin Salicylates Acetaminophen 06/12/19 06/12/19 06/13/19 06:42 23:21 04:14 WBC Hgb MCH RDW Plt Count [place] % (Auto) Lymph # Seg Neutrophils % Seg Neuts % (Manual) Lymphocytes % (Manual) Seg Neutrophils # Man Lymphocytes # (Manual) D-Dimer ABG pH ABG pO2 62.6 L ABG HCO3 29.6 H ABG O2 Saturation 91.0 L ABG Base Excess ABG Hemoglobin 10.3 L Oxyhemoglobin 89.0 L Sodium Potassium Chloride Carbon Dioxide BUN Creatinine Glucose POC Glucose 108 H 106 H Calcium Magnesium Lactate Dehydrogenase CK-MB (CK-2) CK-MB (CK-2) Rel Index Albumin Ur Specific [place] Urine WBC (Auto) Digoxin Salicylates Acetaminophen 06/13/19 06/13/19 06/13/19 04:54 04:54 12:20 WBC Hgb MCH 25 L RDW 19.2 H Plt Count 119 L [place] % (Auto) Lymph # Seg Neutrophils % Seg Neuts % (Manual) 95.0 H Lymphocytes % (Manual) 2.0 L Seg Neutrophils # Man 9.1 H Lymphocytes # (Manual) 0.2 L D-Dimer ABG pH ABG pO2 ABG HCO3 ABG O2 Saturation ABG Base Excess ABG Hemoglobin Oxyhemoglobin Sodium 149 H Potassium Chloride 111.4 H Carbon Dioxide BUN 26 H Creatinine 0.5 L Glucose 107 H POC Glucose 125 H Calcium Magnesium Lactate Dehydrogenase CK-MB (CK-2) CK-MB (CK-2) Rel Index Albumin Ur Specific [place] Urine WBC (Auto) Digoxin Salicylates Acetaminophen 06/13/19 06/14/19 06/14/19 17:25 03:44 04:55 WBC Hgb MCH RDW Plt Count [place] % (Auto) Lymph # Seg Neutrophils % Seg Neuts % (Manual) Lymphocytes % (Manual) Seg Neutrophils # Man Lymphocytes # (Manual) D-Dimer ABG pH ABG pO2 58.9 L ABG HCO3 29.5 H ABG O2 Saturation 88.7 L ABG Base Excess ABG Hemoglobin 10.2 L Oxyhemoglobin 86.7 L Sodium 150 H Potassium Chloride 110.4 H Carbon Dioxide BUN 20 H Creatinine 0.4 L Glucose 105 H POC Glucose 128 H Calcium Magnesium Lactate Dehydrogenase CK-MB (CK-2) CK-MB (CK-2) Rel Index Albumin Ur Specific [place] Urine WBC (Auto) Digoxin Salicylates Acetaminophen 06/14/19 06/14/19 06/14/19 05:37 11:58 21:00 WBC Hgb MCH RDW Plt Count [place] % (Auto) Lymph # Seg Neutrophils % Seg Neuts % (Manual) Lymphocytes % (Manual) Seg Neutrophils # Man Lymphocytes # (Manual) D-Dimer ABG pH 7.321 L ABG pO2 60.0 L ABG HCO3 31.4 H ABG O2 Saturation 87.3 L ABG Base Excess 4.1 H ABG Hemoglobin 10.6 L Oxyhemoglobin 84.8 L Sodium Potassium Chloride Carbon Dioxide BUN Creatinine Glucose POC Glucose 111 H 116 H Calcium Magnesium Lactate Dehydrogenase CK-MB (CK-2) CK-MB (CK-2) Rel Index Albumin Ur Specific [place] Urine WBC (Auto) Digoxin Salicylates Acetaminophen 06/15/19 06/15/19 06/15/19 00:22 03:25 05:08 WBC Hgb MCH RDW Plt Count [place] % (Auto) Lymph # Seg Neutrophils % Seg Neuts % (Manual) Lymphocytes % (Manual) Seg Neutrophils # Man Lymphocytes # (Manual) D-Dimer ABG pH 7.317 L ABG pO2 ABG HCO3 31.5 H ABG O2 Saturation ABG Base Excess 4.1 H ABG Hemoglobin 10.4 L Oxyhemoglobin 94.1 L Sodium Potassium Chloride Carbon Dioxide 31 H BUN 23 H Creatinine 0.3 L Glucose 120 H POC Glucose 108 H Calcium Magnesium Lactate Dehydrogenase CK-MB (CK-2) CK-MB (CK-2) Rel Index Albumin Ur Specific [place] Urine WBC (Auto) Digoxin Salicylates Acetaminophen 06/15/19 06/15/19 06/15/19 05:24 11:41 17:38 WBC Hgb MCH RDW Plt Count [place] % (Auto) Lymph # Seg Neutrophils % Seg Neuts % (Manual) Lymphocytes % (Manual) Seg Neutrophils # Man Lymphocytes # (Manual) D-Dimer ABG pH ABG pO2 ABG HCO3 ABG O2 Saturation ABG Base Excess ABG Hemoglobin Oxyhemoglobin Sodium Potassium Chloride Carbon Dioxide BUN Creatinine Glucose POC Glucose 111 H 154 H 115 H Calcium Magnesium Lactate Dehydrogenase CK-MB (CK-2) CK-MB (CK-2) Rel Index Albumin Ur Specific [place] Urine WBC (Auto) Digoxin Salicylates Acetaminophen 06/15/19 06/16/19 06/16/19 23:31 03:40 05:18 WBC Hgb MCH RDW Plt Count [place] % (Auto) Lymph # Seg Neutrophils % Seg Neuts % (Manual) Lymphocytes % (Manual) Seg Neutrophils # Man Lymphocytes # (Manual) D-Dimer ABG pH 7.313 L ABG pO2 96.4 H ABG HCO3 35.2 H ABG O2 Saturation ABG Base Excess 7.2 H ABG Hemoglobin 10.5 L Oxyhemoglobin 94.9 L Sodium Potassium Chloride Carbon Dioxide BUN Creatinine Glucose POC Glucose 161 H 158 H Calcium Magnesium Lactate Dehydrogenase CK-MB (CK-2) CK-MB (CK-2) Rel Index Albumin Ur Specific [place] Urine WBC (Auto) Digoxin Salicylates Acetaminophen 06/16/19 06/16/19 06/16/19 05:45 05:45 12:06 WBC 12.1 H Hgb MCH 25 L RDW 18.7 H Plt Count 93 L [place] % (Auto) Lymph # Seg Neutrophils % Seg Neuts % (Manual) 97.0 H Lymphocytes % (Manual) 0 L Seg Neutrophils # Man 11.7 H Lymphocytes # (Manual) 0.0 L D-Dimer ABG pH ABG pO2 ABG HCO3 ABG O2 Saturation ABG Base Excess ABG Hemoglobin Oxyhemoglobin Sodium Potassium Chloride Carbon Dioxide 33 H BUN 25 H Creatinine 0.3 L Glucose 165 H POC Glucose 178 H Calcium Magnesium Lactate Dehydrogenase CK-MB (CK-2) CK-MB (CK-2) Rel Index Albumin Ur Specific [place] Urine WBC (Auto) Digoxin Salicylates Acetaminophen 06/16/19 06/16/19 06/17/19 17:55 23:42 03:35 WBC Hgb MCH RDW Plt Count [place] % (Auto) Lymph # Seg Neutrophils % Seg Neuts % (Manual) Lymphocytes % (Manual) Seg Neutrophils # Man Lymphocytes # (Manual) D-Dimer ABG pH ABG pO2 73.2 L ABG HCO3 35.2 H ABG O2 Saturation 94.5 L ABG Base Excess 8.8 H ABG Hemoglobin 10.7 L Oxyhemoglobin 92.6 L Sodium Potassium Chloride Carbon Dioxide BUN Creatinine Glucose POC Glucose 180 H 160 H Calcium Magnesium Lactate Dehydrogenase CK-MB (CK-2) CK-MB (CK-2) Rel Index Albumin Ur Specific [place] Urine WBC (Auto) Digoxin Salicylates Acetaminophen 06/17/19 06/17/19 06/17/19 04:57 09:45 11:59 WBC 11.7 H Hgb MCH 25 L RDW 18.2 H Plt Count 79 L [place] % (Auto) Lymph # Seg Neutrophils % Seg Neuts % (Manual) 96.0 H Lymphocytes % (Manual) 3.0 L Seg Neutrophils # Man 11.2 H Lymphocytes # (Manual) 0.4 L D-Dimer ABG pH ABG pO2 ABG HCO3 ABG O2 Saturation ABG Base Excess ABG Hemoglobin Oxyhemoglobin Sodium Potassium Chloride Carbon Dioxide 34 H BUN 31 H Creatinine 0.3 L Glucose 153 H POC Glucose 163 H Calcium Magnesium Lactate Dehydrogenase CK-MB (CK-2) CK-MB (CK-2) Rel Index Albumin Ur Specific [place] Urine WBC (Auto) Digoxin Salicylates Acetaminophen 06/17/19 06/17/19 06/18/19 17:33 23:39 04:25 WBC Hgb MCH RDW Plt Count [place] % (Auto) Lymph # Seg Neutrophils % Seg Neuts % (Manual) Lymphocytes % (Manual) Seg Neutrophils # Man Lymphocytes # (Manual) D-Dimer ABG pH ABG pO2 72.9 L ABG HCO3 33.8 H ABG O2 Saturation 94.6 L ABG Base Excess 7.3 H ABG Hemoglobin 11.1 L Oxyhemoglobin 92.8 L Sodium Potassium Chloride Carbon Dioxide BUN Creatinine Glucose POC Glucose 186 H 161 H Calcium Magnesium Lactate Dehydrogenase CK-MB (CK-2) CK-MB (CK-2) Rel Index Albumin Ur Specific [place] Urine WBC (Auto) Digoxin Salicylates Acetaminophen 06/18/19 06/18/19 06/18/19 05:23 05:23 05:37 WBC 13.2 H Hgb MCH 25 L RDW 18.3 H Plt Count 81 L [place] % (Auto) Lymph # Seg Neutrophils % Seg Neuts % (Manual) 96.0 H Lymphocytes % (Manual) 4.0 L Seg Neutrophils # Man 12.7 H Lymphocytes # (Manual) 0.5 L D-Dimer ABG pH ABG pO2 ABG HCO3 ABG O2 Saturation ABG Base Excess ABG Hemoglobin Oxyhemoglobin Sodium Potassium Chloride Carbon Dioxide 34 H BUN 36 H Creatinine 0.3 L Glucose 162 H POC Glucose 177 H Calcium Magnesium Lactate Dehydrogenase CK-MB (CK-2) CK-MB (CK-2) Rel Index Albumin Ur Specific [place] Urine WBC (Auto) Digoxin Salicylates Acetaminophen 06/18/19 06/18/19 06/18/19 12:26 18:17 23:51 WBC Hgb MCH RDW Plt Count [place] % (Auto) Lymph # Seg Neutrophils % Seg Neuts % (Manual) Lymphocytes % (Manual) Seg Neutrophils # Man Lymphocytes # (Manual) D-Dimer ABG pH ABG pO2 ABG HCO3 ABG O2 Saturation ABG Base Excess ABG Hemoglobin Oxyhemoglobin Sodium Potassium Chloride Carbon Dioxide BUN Creatinine Glucose POC Glucose 156 H 134 H 153 H Calcium Magnesium Lactate Dehydrogenase CK-MB (CK-2) CK-MB (CK-2) Rel Index Albumin Ur Specific [place] Urine WBC (Auto) Digoxin Salicylates Acetaminophen 06/19/19 06/19/19 06/19/19 05:58 12:12 12:40 WBC Hgb MCH RDW Plt Count [place] % (Auto) Lymph # Seg Neutrophils % Seg Neuts % (Manual) Lymphocytes % (Manual) Seg Neutrophils # Man Lymphocytes # (Manual) D-Dimer ABG pH ABG pO2 ABG HCO3 ABG O2 Saturation ABG Base Excess ABG Hemoglobin Oxyhemoglobin Sodium Potassium Chloride Carbon Dioxide BUN Creatinine Glucose POC Glucose 143 H 186 H Calcium Magnesium Lactate Dehydrogenase CK-MB (CK-2) CK-MB (CK-2) Rel Index Albumin Ur Specific [place] 1.032 H Urine WBC (Auto) Digoxin Salicylates Acetaminophen 06/19/19 06/19/19 06/19/19 14:14 14:14 16:40 WBC Hgb MCH RDW Plt Count [place] % (Auto) Lymph # Seg Neutrophils % Seg Neuts % (Manual) Lymphocytes % (Manual) Seg Neutrophils # Man Lymphocytes # (Manual) D-Dimer 1177.30 H ABG pH ABG pO2 54.2 L ABG HCO3 32.1 H ABG O2 Saturation 87.8 L ABG Base Excess 6.3 H ABG Hemoglobin 11.2 L Oxyhemoglobin 85.9 L Sodium Potassium Chloride Carbon Dioxide BUN Creatinine Glucose POC Glucose Calcium Magnesium Lactate Dehydrogenase 290 H CK-MB (CK-2) CK-MB (CK-2) Rel Index Albumin Ur Specific [place] Urine WBC (Auto) Digoxin Salicylates Acetaminophen 06/19/19 06/19/19 06/20/19 17:00 23:50 05:14 WBC Hgb MCH RDW Plt Count [place] % (Auto) Lymph # Seg Neutrophils % Seg Neuts % (Manual) Lymphocytes % (Manual) Seg Neutrophils # Man Lymphocytes # (Manual) D-Dimer ABG pH ABG pO2 ABG HCO3 ABG O2 Saturation ABG Base Excess ABG Hemoglobin Oxyhemoglobin Sodium Potassium Chloride Carbon Dioxide BUN Creatinine Glucose POC Glucose 137 H 148 H 164 H Calcium Magnesium Lactate Dehydrogenase CK-MB (CK-2) CK-MB (CK-2) Rel Index Albumin Ur Specific [place] Urine WBC (Auto) Digoxin Salicylates Acetaminophen 06/20/19 06/20/19 06/20/19 05:30 05:40 05:40 WBC 16.4 H Hgb MCH 25 L RDW 18.3 H Plt Count 79 L [place] % (Auto) Lymph # Seg Neutrophils % Seg Neuts % (Manual) Lymphocytes % (Manual) Seg Neutrophils # Man Lymphocytes # (Manual) D-Dimer ABG pH ABG pO2 63.4 L ABG HCO3 32.9 H ABG O2 Saturation 91.8 L ABG Base Excess 6.2 H ABG Hemoglobin 10.4 L Oxyhemoglobin 89.7 L Sodium Potassium Chloride Carbon Dioxide 31 H BUN 25 H Creatinine 0.3 L Glucose 150 H POC Glucose Calcium Magnesium Lactate Dehydrogenase CK-MB (CK-2) CK-MB (CK-2) Rel Index Albumin Ur Specific [place] Urine WBC (Auto) Digoxin Salicylates Acetaminophen 06/20/19 06/20/19 06/21/19 12:35 18:32 00:12 WBC Hgb MCH RDW Plt Count [place] % (Auto) Lymph # Seg Neutrophils % Seg Neuts % (Manual) Lymphocytes % (Manual) Seg Neutrophils # Man Lymphocytes # (Manual) D-Dimer ABG pH ABG pO2 ABG HCO3 ABG O2 Saturation ABG Base Excess ABG Hemoglobin Oxyhemoglobin Sodium Potassium Chloride Carbon Dioxide BUN Creatinine Glucose POC Glucose 162 H 159 H 144 H Calcium Magnesium Lactate Dehydrogenase CK-MB (CK-2) CK-MB (CK-2) Rel Index Albumin Ur Specific [place] Urine WBC (Auto) Digoxin Salicylates Acetaminophen 06/21/19 06/21/19 06/21/19 04:58 04:58 05:42 WBC 13.9 H Hgb 9.7 L MCH 25 L RDW 17.9 H Plt Count 85 L [place] % (Auto) Lymph # Seg Neutrophils % Seg Neuts % (Manual) Lymphocytes % (Manual) Seg Neutrophils # Man Lymphocytes # (Manual) D-Dimer ABG pH ABG pO2 ABG HCO3 ABG O2 Saturation ABG Base Excess ABG Hemoglobin Oxyhemoglobin Sodium Potassium Chloride Carbon Dioxide 31 H BUN 23 H Creatinine 0.3 L Glucose 142 H POC Glucose 137 H Calcium Magnesium Lactate Dehydrogenase CK-MB (CK-2) CK-MB (CK-2) Rel Index Albumin Ur Specific [place] Urine WBC (Auto) Digoxin Salicylates Acetaminophen 06/21/19 06/21/19 06/22/19 12:43 23:17 05:28 WBC Hgb MCH RDW Plt Count [place] % (Auto) Lymph # Seg Neutrophils % Seg Neuts % (Manual) Lymphocytes % (Manual) Seg Neutrophils # Man Lymphocytes # (Manual) D-Dimer ABG pH ABG pO2 ABG HCO3 ABG O2 Saturation ABG Base Excess ABG Hemoglobin Oxyhemoglobin Sodium Potassium Chloride Carbon Dioxide BUN Creatinine Glucose POC Glucose 118 H 141 H 144 H Calcium Magnesium Lactate Dehydrogenase CK-MB (CK-2) CK-MB (CK-2) Rel Index Albumin Ur Specific [place] Urine WBC (Auto) Digoxin Salicylates Acetaminophen 06/22/19 06/22/19 06/23/19 12:11 18:27 00:12 WBC Hgb MCH RDW Plt Count [place] % (Auto) Lymph # Seg Neutrophils % Seg Neuts % (Manual) Lymphocytes % (Manual) Seg Neutrophils # Man Lymphocytes # (Manual) D-Dimer ABG pH ABG pO2 ABG HCO3 ABG O2 Saturation ABG Base Excess ABG Hemoglobin Oxyhemoglobin Sodium Potassium Chloride Carbon Dioxide BUN Creatinine Glucose POC Glucose 138 H 169 H 154 H Calcium Magnesium Lactate Dehydrogenase CK-MB (CK-2) CK-MB (CK-2) Rel Index Albumin Ur Specific [place] Urine WBC (Auto) Digoxin Salicylates Acetaminophen 06/23/19 06/23/19 06/23/19 05:05 05:05 05:15 WBC 11.5 H Hgb MCH 25 L RDW 17.5 H Plt Count 98 L [place] % (Auto) Lymph # Seg Neutrophils % Seg Neuts % (Manual) 88.0 H Lymphocytes % (Manual) 4.0 L Seg Neutrophils # Man 10.1 H Lymphocytes # (Manual) 0.5 L D-Dimer ABG pH ABG pO2 ABG HCO3 ABG O2 Saturation ABG Base Excess ABG Hemoglobin Oxyhemoglobin Sodium 133 L Potassium 5.3 H Chloride 95.5 L Carbon Dioxide BUN 24 H Creatinine 0.3 L Glucose 168 H POC Glucose 174 H Calcium Magnesium 2.60 H Lactate Dehydrogenase CK-MB (CK-2) CK-MB (CK-2) Rel Index Albumin Ur Specific [place] Urine WBC (Auto) Digoxin Salicylates Acetaminophen 06/23/19 06/23/19 06/23/19 08:50 12:00 17:54 WBC Hgb MCH RDW Plt Count [place] % (Auto) Lymph # Seg Neutrophils % Seg Neuts % (Manual) Lymphocytes % (Manual) Seg Neutrophils # Man Lymphocytes # (Manual) D-Dimer ABG pH ABG pO2 56.9 L ABG HCO3 33.2 H ABG O2 Saturation 88.0 L ABG Base Excess 7.0 H ABG Hemoglobin 9.9 L Oxyhemoglobin 86.4 L Sodium Potassium Chloride Carbon Dioxide BUN Creatinine Glucose POC Glucose 168 H 146 H Calcium Magnesium Lactate Dehydrogenase CK-MB (CK-2) CK-MB (CK-2) Rel Index Albumin Ur Specific [place] Urine WBC (Auto) Digoxin Salicylates Acetaminophen 06/23/19 06/24/19 06/24/19 23:55 04:41 05:53 WBC Hgb MCH RDW Plt Count [place] % (Auto) Lymph # Seg Neutrophils % Seg Neuts % (Manual) Lymphocytes % (Manual) Seg Neutrophils # Man Lymphocytes # (Manual) D-Dimer ABG pH ABG pO2 ABG HCO3 ABG O2 Saturation ABG Base Excess ABG Hemoglobin Oxyhemoglobin Sodium Potassium Chloride Carbon Dioxide BUN Creatinine Glucose POC Glucose 145 H 184 H Calcium Magnesium Lactate Dehydrogenase CK-MB (CK-2) CK-MB (CK-2) Rel Index Albumin Ur Specific [place] Urine WBC (Auto) Digoxin 0.5 L Salicylates Acetaminophen 06/24/19 12:01 WBC Hgb MCH RDW Plt Count [place] % (Auto) Lymph # Seg Neutrophils % Seg Neuts % (Manual) Lymphocytes % (Manual) Seg Neutrophils # Man Lymphocytes # (Manual) D-Dimer ABG pH ABG pO2 ABG HCO3 ABG O2 Saturation ABG Base Excess ABG Hemoglobin Oxyhemoglobin Sodium Potassium Chloride Carbon Dioxide BUN Creatinine Glucose POC Glucose 178 H Calcium Magnesium Lactate Dehydrogenase CK-MB (CK-2) CK-MB (CK-2) Rel Index Albumin Ur Specific [place] Urine WBC (Auto) Digoxin Salicylates Acetaminophen Chest x-ray: pending Allied health notes reviewed: nursing
--- NOTE | 2019-06-24 14:32 | Progress Note ---
Subjective Date of service: 06/24/19 Principal diagnosis: Ac and ch hypoxic & hypercapnic resp failure; AE-COPD; Tobacco use disorder Interval history: Afebrile today. Largely stable, critically ill. No acute changes today. Objective - Constitutional Vitals: Vital Signs Temp Pulse Resp BP Pulse Ox 97.5 F L 76 20 110/57 100 06/24/19 12:00 06/24/19 13:18 06/24/19 12:30 06/24/19 13:18 06/24/19 12:39 Temperature -Last 24 Hours Temperature 97.5 F Temperature 97.9 F Temperature 98.7 F Temperature 98.9 F Temperature 98.5 F Temperature 97.5 F - Labs CBC & Chem 7: 06/23/19 05:05 06/23/19 05:05 Labs: Abnormal lab results 06/23/19 06/23/19 06/24/19 Range/Units 17:54 23:55 04:41 POC Glucose 146 H 145 H (70-105) Digoxin 0.5 L (0.9-2.0) ng/mL 06/24/19 06/24/19 Range/Units 05:53 12:01 POC Glucose 184 H 178 H (70-105) Digoxin (0.9-2.0) ng/mL
[2019-06-24] MEDS: DIGOXIN 0.5 MG/2 ML INJ IV SCH (18:22)
[2019-06-25] MEDS: INSULIN LISPRO 100 UNIT/ML SUB-Q SCH ×4 (00:18→19:08)
[2019-06-25] MEDS: methylPREDNISolone Sod Succinate 40 MG/1 ML INJ IV SCH ×5 (00:18→23:35)
[2019-06-25] MEDS: fentaNYL DRIP Premix 2,000 MCG/100 ML BAG IV SCH (00:18)
[2019-06-25 05:25] LABS: Hematocrit 35.9 % (30.3-42.9); Mean Corpuscular HGB Conc 31 % (30-34); Mean Corpuscular Volume 80 fl (79-97); Platelet Count 124 K/mm3 (140-440); Red Blood Count 4.49 M/mm3 (3.65-5.03); Red Cell Distribution Width 18.3 % (13.2-15.2)
[2019-06-25 05:41] LABS: ABG Base Excess 7.8 mmol/L (-2.0-3.0); ABG Methemoglobin 0.3 % (0.0-1.5); ABG Oxygen Saturation 91.8 % (95.0-99.0); ABG PCO2 49.8 mm Hg; ABG PH 7.44 pH Units (7.350-7.450); ABG PO2 62.7 mm Hg (80.0-90.0)
[2019-06-25 05:43] LABS: BUN/Creatinine Ratio 73; Blood Urea Nitrogen 22 mg/dL (7-17); Calcium 8.9 mg/dL (8.4-10.2); Hemolysis Index 16
[2019-06-25] MEDS: dilTIAZem 30 MG TAB PO SCH ×3 (06:15→23:36)
[2019-06-25 06:16] LABS: Basophils % (Manual) 0 % (0.0-1.8); Eosinophils % (Manual) 0 % (0.0-4.3); Hypochromasia 1+; Total Cells Counted 100
[2019-06-25] MEDS: CEFEPIME/NS 1 GM/100 ML 1 GM/100 ML BAG IV SCH ×3 (06:16→23:34)
[2019-06-25 06:17] LABS: Stomatocytes Rare
[2019-06-25 06:18] LABS: Anisocytosis RARE; Macrocytosis Rare; Platelet Estimate Consistent w Auto
[2019-06-25] MEDS: ARFORMOTEROL 15 MCG/2 ML NEBU IH SCH ×2 (07:13→19:08)
[2019-06-25] MEDS: IPRATROPIUM/ALBUTEROL SULFATE 3 ML AMPUL.NEB IH SCH ×3 (07:13→19:08)
[2019-06-25] MEDS: BUDESONIDE 0.5 MG/2 ML NEBU IH SCH ×2 (07:13→19:09)
[2019-06-25] MEDS: VENLAFAXINE 75 MG TAB PO SCH ×3 (09:50→23:37)
[2019-06-25] MEDS: QUEtiapine 100 MG TAB PO SCH ×2 (10:24→23:35)
[2019-06-25] MEDS: LANSOPRAZOLE 30 MG SOLUTAB FEEDTUBE SCH (10:24)
[2019-06-25] MEDS: AMIODARONE 200 MG TAB PO SCH (10:24)
[2019-06-25] MEDS: DOCUSATE SODIUM 100 MG/10 ML ORAL LIQD PO SCH ×2 (10:24→23:35)
--- NOTE | 2019-06-25 11:52 | Progress Note ---
Assessment and Plan Paroxysmal Atrial flutter/afib/MAT currently in sinus rhythm on amiodarone, diltiazem and digoxin for suppression. Dig level at 1.0 on 06/19/19. repeat Dig level at 0.5 on 06/24/19. not on anticoagulation secondary to history of melena and anemia. Respiratory failure s/p intubation COPD exacerbation on home oxygen History of [place]/Coronary artery disease EF 45-50% by echo 08/2018 [facility]: [place] [facility] of the RCA recommend for medical therapy. She did undergo PCI of the mid LAD using bare metal stent. Recommend: Continue oral Cardizem, Amiodarone and Digoxin as tolerated for paroxysmal atrial flutter. Otherwise, conservative cardiac management. Subjective Date of service: 06/25/19 Principal diagnosis: Ac and ch hypoxic & hypercapnic resp failure; AE-COPD; Tobacco use disorder Interval history: No cardiac events overnight. Stable sinus rhythm on telemetry. Objective Vital Signs Temp Pulse Pulse Pulse Pulse Pulse Pulse 06/25/19 10:00 66 06/25/19 09:45 69 06/25/19 09:31 67 06/25/19 09:15 67 06/25/19 09:01 67 06/25/19 08:45 65 06/25/19 08:31 62 06/25/19 08:15 66 06/25/19 08:01 61 06/25/19 08:00 97.2 F L 67 06/25/19 07:45 62 06/25/19 07:31 62 06/25/19 07:15 63 06/25/19 07:13 62 60 06/25/19 07:01 65 06/25/19 06:45 66 06/25/19 06:31 68 06/25/19 06:15 67 06/25/19 06:00 69 06/25/19 05:45 74 06/25/19 05:31 79 06/25/19 05:16 87 06/25/19 05:00 93 H 06/25/19 04:46 100 H 06/25/19 04:35 101 H 06/25/19 04:30 106 H 06/25/19 04:16 106 H 06/25/19 04:00 109 H 119 H 06/25/19 03:46 104 H 06/25/19 03:30 109 H 06/25/19 03:29 98.4 F 06/25/19 03:16 117 H 06/25/19 03:00 113 H 06/25/19 02:46 115 H 06/25/19 02:30 115 H 06/25/19 02:16 110 H 06/25/19 02:00 115 H 06/25/19 01:46 113 H 06/25/19 01:30 117 H 06/25/19 01:16 114 H 06/25/19 01:00 112 H 06/25/19 00:46 112 H 06/25/19 00:30 118 H 06/25/19 00:25 108 H 06/25/19 00:16 111 H 06/25/19 00:00 98.9 F 112 H 113 H 06/24/19 23:46 119 H 06/24/19 23:30 111 H 06/24/19 23:28 111 H 06/24/19 23:18 115 H 06/24/19 23:16 123 H 06/24/19 23:00 117 H 06/24/19 22:45 113 H 06/24/19 22:30 119 H 06/24/19 22:15 117 H 06/24/19 22:00 107 H 06/24/19 21:46 76 06/24/19 21:30 62 06/24/19 21:16 60 06/24/19 21:03 58 L 06/24/19 21:00 58 L 06/24/19 20:52 59 L 06/24/19 20:46 59 L 06/24/19 20:30 57 L 06/24/19 20:16 59 L 06/24/19 20:00 97.8 F 58 L 58 L 06/24/19 19:46 58 L 06/24/19 19:30 59 L 06/24/19 19:16 57 L 06/24/19 19:00 59 L 06/24/19 18:46 60 06/24/19 18:30 60 06/24/19 18:22 61 06/24/19 18:16 61 06/24/19 18:00 60 06/24/19 17:46 60 06/24/19 17:30 58 L 06/24/19 17:16 59 L 06/24/19 17:00 62 06/24/19 16:46 61 06/24/19 16:42 60 06/24/19 16:30 62 06/24/19 16:16 61 06/24/19 16:00 98.2 F 63 61 61 61 61 06/24/19 15:46 61 06/24/19 15:30 61 06/24/19 15:16 63 06/24/19 15:00 60 06/24/19 14:45 56 L 06/24/19 14:41 58 L 06/24/19 14:30 60 06/24/19 14:16 65 06/24/19 14:00 71 06/24/19 13:46 71 06/24/19 13:30 80 06/24/19 13:18 76 06/24/19 13:15 74 06/24/19 13:00 77 06/24/19 12:46 77 06/24/19 12:39 79 06/24/19 12:30 78 06/24/19 12:15 80 06/24/19 12:00 97.5 F L 81 Resp Resp BP Pulse Ox 06/25/19 10:00 9 L 110/55 98 06/25/19 09:45 9 L 116/56 97 06/25/19 09:31 8 L 116/56 98 06/25/19 09:15 9 L 112/56 97 06/25/19 09:01 8 L 112/56 96 06/25/19 08:45 9 L 122/57 97 06/25/19 08:31 8 L 122/57 97 06/25/19 08:15 11 L 110/56 98 06/25/19 08:01 16 98/49 94 06/25/19 08:00 96 06/25/19 07:45 16 104/50 97 06/25/19 07:31 15 104/50 98 06/25/19 07:15 16 107/50 98 06/25/19 07:13 16 104/50 98 06/25/19 07:01 16 107/50 98 06/25/19 06:45 15 116/65 98 06/25/19 06:31 12 116/65 97 06/25/19 06:15 16 116/59 98 06/25/19 06:00 16 106/57 94 06/25/19 05:45 16 125/71 93 06/25/19 05:31 18 116/59 94 06/25/19 05:16 12 125/71 93 06/25/19 05:00 15 133/71 94 06/25/19 04:46 14 133/71 92 06/25/19 04:35 133/71 92 06/25/19 04:30 13 136/70 92 06/25/19 04:16 15 136/70 95 06/25/19 04:00 16 136/70 92 06/25/19 03:46 17 126/78 98 06/25/19 03:30 20 126/78 97 06/25/19 03:29 06/25/19 03:16 15 125/75 95 06/25/19 03:00 22 125/75 91 06/25/19 02:46 20 150/84 98 06/25/19 02:30 21 135/68 93 06/25/19 02:16 19 150/84 92 06/25/19 02:00 18 125/85 92 06/25/19 01:46 15 125/85 97 06/25/19 01:30 17 125/85 95 06/25/19 01:16 17 125/85 96 06/25/19 01:00 18 125/85 92 06/25/19 00:46 18 129/72 93 06/25/19 00:30 12 141/78 91 06/25/19 00:25 125/85 94 06/25/19 00:16 11 L 141/78 93 06/25/19 00:00 16 141/78 93 06/24/19 23:46 12 144/59 92 06/24/19 23:30 17 144/59 92 06/24/19 23:28 11 L 144/59 93 06/24/19 23:18 161/96 06/24/19 23:16 17 161/96 92 06/24/19 23:00 11 L 116/74 91 06/24/19 22:45 13 116/74 92 06/24/19 22:30 17 116/74 91 06/24/19 22:15 19 115/67 93 06/24/19 22:00 16 99/52 93 06/24/19 21:46 18 99/52 93 06/24/19 21:30 15 109/59 93 06/24/19 21:16 15 109/59 95 06/24/19 21:03 16 05/07/20 21:00 17 115/55 97 06/24/19 20:52 115/55 99 06/24/19 20:46 15 115/55 98 06/24/19 20:30 13 111/52 99 06/24/19 20:16 17 111/52 98 06/24/19 20:00 18 114/57 99 06/24/19 19:46 16 114/57 99 06/24/19 19:30 13 114/57 99 06/24/19 19:16 13 114/57 99 06/24/19 19:00 17 110/54 99 06/24/19 18:46 14 110/54 99 06/24/19 18:30 16 109/49 99 06/24/19 18:22 109/49 06/24/19 18:16 13 109/49 99 06/24/19 18:00 15 112/53 99 06/24/19 17:46 16 112/53 99 06/24/19 17:30 14 105/51 99 06/24/19 17:16 11 L 105/51 99 06/24/19 17:00 12 108/56 99 06/24/19 16:46 14 108/56 99 06/24/19 16:42 102/50 100 06/24/19 16:30 14 102/48 98 06/24/19 16:16 13 102/48 98 06/24/19 16:00 18 102/52 98 06/24/19 15:46 15 102/52 97 06/24/19 15:30 13 99/48 98 06/24/19 15:16 14 99/48 98 06/24/19 15:00 14 92/42 98 06/24/19 14:45 14 101/48 98 06/24/19 14:41 16 06/24/19 14:30 16 95/44 96 06/24/19 14:16 21 95/44 99 06/24/19 14:00 16 112/53 98 06/24/19 13:46 12 112/53 99 06/24/19 13:30 14 114/57 99 07 13:18 110/57 0507 13:15 14 110/57 99 07 13:00 14 112/59 99 06/24/19 12:46 20 114/56 99 05/07/20 12:39 114/56 100 06/24/19 12:30 20 114/56 99 06/24/19 12:15 17 110/62 99 06/24/19 12:00 15 102/63 98 - Physical Examination General: Other (intubated on the vent) HEENT: Positive: Other (intubated) Cardiac: Positive: Reg Rate and Rhythm Extremities: Absent: edema - Labs and Meds CBC 06/25/19 Range/Units 04:38 WBC 17.9 H (4.5-11.0) K/mm3 RBC 4.49 (3.65-5.03) M/mm3 Hgb 11.0 (10.1-14.3) gm/dl Hct 35.9 (30.3-42.9) % Plt Count 124 L (140-440) K/mm3 Comprehensive Metabolic Panel 06/25/19 Range/Units 04:38 Sodium 137 (137-145) mmol/L Potassium 4.8 (3.6-5.0) mmol/L Chloride 95.4 L (98-107) mmol/L Carbon Dioxide 31 H (22-30) mmol/L BUN 22 H (7-17) mg/dL Creatinine 0.3 L (0.7-1.2) mg/dL Glucose 126 H (65-100) mg/dL Calcium 8.9 (8.4-10.2) mg/dL - Allied health notes Allied health notes reviewed: nursing
--- NOTE | 2019-06-25 12:20 | Progress Note ---
Assessment and Plan Assessment and plan: --COVID-19 was ruled out. --Ac. hypoxic,hypercapnic resp. failure: On vent > 96 hours Nebulizers, IV steroids, IV antibiotics inhalation steroids Pulmonary critical following, supportive care Wean as tolerated and extubate --sepsis/pneumonia/sputum Pseudomonas 06/11/2019; present on admission ID following , continue cefepime Sputum cultures again positive Pseudomonas on 06/19/2019 --Left lung basilar density; pneumonia Sputum cultures positive for Pseudomonas Continue cefepime --Paroxysmal A. fib/flutter; RVR On amiodarone, digoxin and Cardizem Closely monitor, cardiology following-digoxin adjusted to 0.125 mg every other day per cardiology Changed amiodarone to 100 mg daily No chronic anticoagulation due to history of GI bleed --History of coronary artery disease/CHF Low-dose Lasix, continue other cardiac meds --Hypernatremia; resolved monitor sodium levels --History of depression; Resume antidepressive medications --Ongoing tobacco use; Will alcohol and drug counselor smoking cessation when patient is more stable Nicotine patch as needed --Obesity; BMI 32.2 Patient needs weight reduction when medically stable --Thrombocytopenia; HIT antibody negative --Tube feeding diet; per dietary recommendations --DVT prophylaxis; Lovenox --Full CODE STATUS Restraints in place. Patient is critically ill with poor prognosis Closely monitor the patient and adjust management as needed Follow franchise business consultant recommendations The high probability of a clinically significant, sudden or life threatening d eterioration of the [respiratory, CVS] system(s) required my full and direct attention, intervention and personal management. The aggregate critical care time was [32] minutes. This time is in addition to time spent performing reported procedures but includes the following: [x] Data Review and interpretation [x] Patient assessment and monitoring of vital signs [x] Documentation [x] Medication orders and management Critical care time 35 minutes Monitor closely and adjust management as needed History Interval history: Patient seen and examined in her room Patient's chart and medications reviewed Remains intubated on ventilatory support Weaning parameters started Sedated not in acute distress Vital signs noted Hospitalist Physical - Constitutional Vitals: Temp Pulse Resp BP Pulse Ox 97.2 F L 75 18 107/56 97 06/25/19 08:00 06/25/19 11:57 06/25/19 11:57 06/25/19 11:57 06/25/19 11:57 General appearance: Present: no acute distress, well-nourished, obese, other (Intubated on ventilatory support sedated) - EENT Eyes: Present: PERRL, EOM intact - Neck Neck: Present: supple, normal ROM - Respiratory Respiratory effort: normal Respiratory: bilateral: diminished, negative: rales, rhonchi, wheezing - Cardiovascular Rhythm: regular Heart Sounds: Present: S1 & S2 - Extremities Extremities: no ischemia, No edema - Abdominal General gastrointestinal: soft, non-tender, non-distended, normal bowel sounds - Integumentary Integumentary: Present: clear, warm - Psychiatric Psychiatric: other (Intubated on vent) - Neurologic Neurologic: other (Intubated on vent) Results - Labs CBC & Chem 7: 06/25/19 04:38 06/25/19 04:38 Labs: Laboratory Last Values WBC 17.9 K/mm3 (4.5-11.0) H 06/25/19 04:38 RBC 4.49 M/mm3 (3.65-5.03) 06/25/19 04:38 Hgb 11.0 gm/dl (10.1-14.3) 06/25/19 04:38 Hct 35.9 % (30.3-42.9) 06/25/19 04:38 MCV 80 fl (79-97) 06/25/19 04:38 MCH 25 pg (28-32) L 06/25/19 04:38 MCHC 31 % (30-34) 06/25/19 04:38 RDW 18.3 % (13.2-15.2) H 06/25/19 04:38 Plt Count 124 K/mm3 (140-440) L 06/25/19 04:38 Lymph % (Auto) 13.7 % (13.4-35.0) 06/11/19 18:03 [place] % (Auto) 10.3 % (0.0-7.3) H 06/11/19 18:03 Eos % (Auto) 0.8 % (0.0-4.3) 06/11/19 18:03 Baso % (Auto) 0.8 % (0.0-1.8) 06/11/19 18:03 Lymph # 1.1 K/mm3 (1.2-5.4) L 06/11/19 18:03 [place] # 0.8 K/mm3 (0.0-0.8) 06/11/19 18:03 Eos # 0.1 K/mm3 (0.0-0.4) 06/11/19 18:03 Baso # 0.1 K/mm3 (0.0-0.1) 06/11/19 18:03 Add Manual Diff Complete 06/25/19 04:38 Total Counted 100 06/25/19 04:38 Seg Neutrophils % Eyeglass Lens Generator 06/25/19 04:38 Seg Neuts % (Manual) 94.0 % (40.0-70.0) H 06/25/19 04:38 Band Neutrophils % 0 % 06/25/19 04:38 Lymphocytes % (Manual) 1.0 % (13.4-35.0) L 06/25/19 04:38 Reactive Lymphs % (Man) 0 % 06/25/19 04:38 Monocytes % (Manual) 5.0 % (0.0-7.3) 06/25/19 04:38 Eosinophils % (Manual) 0 % (0.0-4.3) 06/25/19 04:38 Basophils % (Manual) 0 % (0.0-1.8) 06/25/19 04:38 Metamyelocytes % 0 % 06/25/19 04:38 Myelocytes % 0 % 06/25/19 04:38 Promyelocytes % 0 % 06/25/19 04:38 Blast Cells % 0 % 06/25/19 04:38 Nucleated RBC % Not Reportable 06/25/19 04:38 Seg Neutrophils # 6.0 K/mm3 (1.8-7.7) 06/11/19 18:03 Seg Neutrophils # Man 16.8 K/mm3 (1.8-7.7) H 06/25/19 04:38 Band Neutrophils # 0.0 K/mm3 06/25/19 04:38 Lymphocytes # (Manual) 0.2 K/mm3 (1.2-5.4) L 06/25/19 04:38 Abs React Lymphs (Man) 0.0 K/mm3 06/25/19 04:38 Monocytes # (Manual) 0.9 K/mm3 (0.0-0.8) H 06/25/19 04:38 Eosinophils # (Manual) 0.0 K/mm3 (0.0-0.4) 06/25/19 04:38 Basophils # (Manual) 0.0 K/mm3 (0.0-0.1) 06/25/19 04:38 Metamyelocytes # 0.0 K/mm3 06/25/19 04:38 Myelocytes # 0.0 K/mm3 06/25/19 04:38 Promyelocytes # 0.0 K/mm3 06/25/19 04:38 Blast Cells # 0.0 K/mm3 06/25/19 04:38 WBC Morphology Not Reportable 06/25/19 04:38 Hypersegmented Neuts Not Reportable 06/25/19 04:38 Hyposegmented Neuts Not Reportable 06/25/19 04:38 Hypogranular Neuts Not Reportable 06/25/19 04:38 Smudge Cells Not Reportable 06/25/19 04:38 Toxic Granulation Not Reportable 06/25/19 04:38 Toxic Vacuolation Not Reportable 06/25/19 04:38 Dohle Bodies Not Reportable 06/25/19 04:38 Pelger-Huet Anomaly Not Reportable 06/25/19 04:38 Neha Rods Not Reportable 06/25/19 04:38 Platelet Estimate Consistent w auto 06/25/19 04:38 Clumped Platelets Not Reportable 06/25/19 04:38 Plt Clumps, EDTA Not Reportable 06/25/19 04:38 Large Platelets Not Reportable 06/25/19 04:38 Giant Platelets Not Reportable 06/25/19 04:38 Platelet Satelliting Not Reportable 06/25/19 04:38 Plt Morphology Comment Not Reportable 06/25/19 04:38 RBC Morphology Not Reportable 06/25/19 04:38 Dimorphic RBCs Not Reportable 06/25/19 04:38 Polychromasia Not Reportable 06/25/19 04:38 Hypochromasia 1+ 06/25/19 04:38 Poikilocytosis Not Reportable 06/25/19 04:38 Anisocytosis Rare 06/25/19 04:38 Microcytosis Not Reportable 06/25/19 04:38 Macrocytosis Rare 06/25/19 04:38 Spherocytes Not Reportable 06/25/19 04:38 Pappenheimer Bodies Not Reportable 06/25/19 04:38 Sickle Cells Not Reportable 06/25/19 04:38 Target Cells Not Reportable 06/25/19 04:38 Tear Drop Cells Not Reportable 06/25/19 04:38 Ovalocytes Not Reportable 06/25/19 04:38 Stomatocytes Rare 06/25/19 04:38 Helmet Cells Not Reportable 06/25/19 04:38 [place] Bodies Not Reportable 06/25/19 04:38 [place] Rings Not Reportable 06/25/19 04:38 Damien Cells Not Reportable 06/25/19 04:38 Bite Cells Not Reportable 06/25/19 04:38 Crenated Cell Not Reportable 06/25/19 04:38 Elliptocytes Rare 06/25/19 04:38 Acanthocytes (Spur) Not Reportable 06/25/19 04:38 Rouleaux Not Reportable 06/25/19 04:38 Hemoglobin C Crystals Not Reportable 06/25/19 04:38 Schistocytes Not Reportable 06/25/19 04:38 Malaria parasites Not Reportable 06/25/19 04:38 Hernan Bodies Not Reportable 06/25/19 04:38 Hem Pathologist Commnt No 06/25/19 04:38 PT 13.0 Sec. (12.2-14.9) 06/11/19 18:03 INR 0.97 (0.87-1.13) 06/11/19 18:03 D-Dimer 1177.30 ng/mlDDU (0-234) H 06/19/19 14:14 Heparin Anti-Xa, Unfract Negative (Negative) 06/17/19 22:48 ABG pH 7.440 pH Units (7.350-7.450) 06/25/19 04:37 ABG pCO2 49.8 mm Hg 06/25/19 04:37 ABG pO2 62.7 mm Hg (80.0-90.0) L 06/25/19 04:37 ABG HCO3 33.0 mmol/L (20.0-26.0) H 06/25/19 04:37 ABG O2 Saturation 91.8 % (95.0-99.0) L 06/25/19 04:37 ABG O2 Content 12.7 (0.0-44) 06/25/19 04:37 ABG Base Excess 7.8 mmol/L (-2.0-3.0) H 06/25/19 04:37 ABG Hemoglobin 10.0 gm/dl (12.0-16.0) L 06/25/19 04:37 ABG Carboxyhemoglobin 1.4 % (0.0-5.0) 06/25/19 04:37 ABG Methemoglobin 0.3 % (0.0-1.5) 06/25/19 04:37 Oxyhemoglobin 90.2 % (95.0-99.0) L 06/25/19 04:37 FiO2 40 % 06/25/19 04:37 Sodium 137 mmol/L (137-145) 06/25/19 04:38 Potassium 4.8 mmol/L (3.6-5.0) 06/25/19 04:38 Chloride 95.4 mmol/L (98-107) L 06/25/19 04:38 Carbon Dioxide 31 mmol/L (22-30) H 06/25/19 04:38 Anion Gap 15 mmol/L 06/25/19 04:38 BUN 22 mg/dL (7-17) H 06/25/19 04:38 Creatinine 0.3 mg/dL (0.7-1.2) L 06/25/19 04:38 Estimated GFR > 60 ml/min 06/25/19 04:38 BUN/Creatinine Ratio 73 % 06/25/19 04:38 Glucose 126 mg/dL (65-100) H 06/25/19 04:38 POC Glucose 128 (70-105) H 06/25/19 05:40 Calcium 8.9 mg/dL (8.4-10.2) 06/25/19 04:38 Phosphorus 4.50 mg/dL (2.5-4.5) 06/15/19 05:08 Magnesium 2.20 mg/dL (1.7-2.3) 06/25/19 04:38 Ferritin 43.6 ng/mL (13.0-400.0) 06/19/19 14:14 Total Bilirubin 0.30 mg/dL (0.1-1.2) 06/11/19 18:03 AST 14 units/L (5-40) 06/11/19 18:03 ALT 8 units/L (7-56) 06/11/19 18:03 Alkaline Phosphatase 85 units/L (35-129) 06/11/19 18:03 Lactate Dehydrogenase 290 units/L (91-180) H 06/19/19 14:14 Total Creatine Kinase 74 units/L (30-135) 06/12/19 05:09 CK-MB (CK-2) 4.0 ng/mL (0.0-4.0) 06/12/19 05:09 CK-MB (CK-2) Rel Index 5.4 (0-4) H 06/12/19 05:09 Troponin T < 0.010 ng/mL (0.00-0.029) 06/12/19 05:09 C-Reactive Protein 0.10 mg/dL (0.00-1.30) 06/19/19 14:14 Total Protein 6.4 g/dL (6.3-8.2) 06/11/19 18:03 Albumin 3.5 g/dL (3.9-5) L 06/11/19 18:03 Albumin/Globulin Ratio 1.2 % 06/11/19 18:03 Procalcitonin < 0.05 ng/mL (<0.15) 06/19/19 14:14 Urine Color Yellow (Yellow) 06/19/19 12:40 Urine Turbidity Clear (Clear) 06/19/19 12:40 Urine pH 5.0 (5.0-7.0) 06/19/19 12:40 Ur Specific [place] 1.032 (1.003-1.030) H 06/19/19 12:40 Urine Protein 30 mg/dl mg/dL (Negative) 06/19/19 12:40 Urine Glucose (UA) Neg mg/dL (Negative) 06/19/19 12:40 Urine Ketones Neg mg/dL (Negative) 06/19/19 12:40 Urine Blood Sm (Negative) 06/19/19 12:40 Urine Nitrite Neg (Negative) 06/19/19 12:40 Urine Bilirubin Neg (Negative) 06/19/19 12:40 Urine Urobilinogen < 2.0 mg/dL (<2.0) 06/19/19 12:40 Ur Leukocyte Esterase Neg (Negative) 06/19/19 12:40 Urine WBC (Auto) 4.0 /HPF (0.0-6.0) 06/19/19 12:40 Urine RBC (Auto) 44.0 /HPF (0.0-6.0) 06/19/19 12:40 Urine Bacteria (Auto) 1+ /HPF (Negative) 06/19/19 12:40 Hyaline Casts 15 /LPF 06/19/19 12:40 Urine Mucus Few /HPF 06/19/19 12:40 Urine Yeast (Budding) Few /HPF 06/12/19 02:04 Digoxin 0.5 ng/mL (0.9-2.0) L 06/24/19 04:41 Salicylates 1.0 mg/dL (2.8-20.0) L 06/11/19 18:03 Acetaminophen < 5.0 ug/mL (10.0-30.0) L 06/11/19 18:03 Heparin-induced Plt Ab Negative (Negative) 06/17/19 22:48 UF Heparin High Dose 3 % Release 06/17/19 22:48 ESSIE UFH Low Dose 0.1 2 % Release 06/17/19 22:48 ESSIE UFH Low Dose 0.5 1 % Release 06/17/19 22:48 Coronavirus (PCR) Negative (Negative) 06/19/19 10:33 Blood Type O POSITIVE 06/19/19 10:08 Antibody Screen Negative 06/19/19 10:08 Microbiology: Microbiology 06/19/19 10:10 Peripheral/Venous Blood Culture - Final NO GROWTH AFTER 5 DAYS 06/19/19 10:10 Peripheral/Venous Blood Culture - Final NO GROWTH AFTER 5 DAYS Harley/IV: Voiding Method Indwelling Catheter IV Catheter Type [Right Foot] INT / Saline Lock IV Catheter Type [Right Upper INT / Saline Lock arm] IV Catheter Type [Left Peripheral IV Antecubital] IV Catheter Type [Right Wrist] Peripheral IV IV Catheter Type [Right Hand] Peripheral IV Active Medications - Current Medications Current Medications: Generic Name Dose Route Start Last Admin Trade Name Freq PRN Reason Stop Dose Admin Acetaminophen 650 mg 06/11/19 22:48 06/20/19 08:03 Tylenol PO 650 mg Q4H PRN Administration Pain MILD(1-3)/Fever >100.5/PRAJAPATI Albuterol 2.5 mg 06/14/19 08:20 Proventil IH Q4HRT PRN Shortness Of Breath Albuterol/Ipratropium 1 ampul 06/14/19 14:00 06/25/19 07:13 Duoneb *Not For Prn Use* IH 1 ampul TIDRT DOMINICK Administration Alprazolam 0.25 mg 06/13/19 10:23 06/22/19 09:00 Xanax PO 0.25 mg Q8H PRN Administration Anxiety Amiodarone HCl 100 mg 06/22/19 10:00 06/25/19 10:24 Cordarone PO 100 mg QDAY DOMINICK Administration Lipase/Protease/Amylase 1 each 06/13/19 17:52 Pancrejohanne Pereira 10,500 Unit FEEDTUBE PRN PRN For Clogged Feeding Tube Arformoterol Tartrate 15 mcg 06/14/19 20:00 06/25/19 07:13 Brovana Nebu IH 15 mcg Q12HRT DOMINICK Administration Budesonide 0.5 mg 06/14/19 20:00 06/25/19 07:13 Pulmicort IH 0.5 mg Q12HRT DOMINICK Administration Dextrose 50 ml 06/11/19 22:48 D50w (25gm) Syringe IV Q30MIN PRN Hypoglycemia Protocol Digoxin 0.125 mg 06/22/19 17:00 06/24/19 18:22 Lanoxin IV 0.125 mg Q48HR@1700 DOMINICK Administration Diltiazem HCl 30 mg 06/16/19 11:30 06/25/19 06:15 Cardizem PO 30 mg Q8HR DOMINICK Administration Docusate Sodium 100 mg 06/18/19 11:00 06/25/19 10:24 Colace PO 100 mg BID DOMINICK Administration Hydrophilic Ointment 1 applic 06/11/19 17:44 Vaseline Lip Therapy TP Q2HR PRN Dry Lips Fentanyl Citrate 2,000 mcg in 100 mls @ 3.742 mls/hr 06/11/19 18:00 06/25/19 00:18 Fentanyl Drip Premix IV 2 mcg/kg/hr TITR DOMINICK 7.484 mls/hr Administration Protocol 1 MCG/KG/HR Cefepime HCl 1 gm in 100 mls @ 200 mls/hr 06/14/19 14:00 06/25/19 06:16 Cefepime/Ns 1 Gm/100 Ml IV 06/28/19 06:29 200 mls/hr Q8HR DOMINICK Administration Protocol Insulin Human Lispro 0 unit 06/12/19 00:00 06/25/19 05:45 Humalog SUB-Q Not Given Q6HR [facility] Protocol Lansoprazole 30 mg 06/13/19 11:00 06/25/19 10:24 Prevacid Solutab FEEDTUBE 30 mg QDAY DOMINICK Administration Lorazepam 2 mg 06/21/19 14:45 06/23/19 21:42 Ativan IV 2 mg Q6H PRN Administration Agitation Magnesium Hydroxide 30 ml 06/22/19 09:51 Milk Of Magnesia PO QDAY PRN Constipation Methylprednisolone Sodium Succinate 40 mg 06/23/19 12:00 06/25/19 06:15 Solu-Medrol IV 40 mg Q6HR DOMINICK Administration Metoprolol Tartrate 2.5 mg 06/19/19 11:11 06/19/19 11:48 Metoprolol IV 2.5 mg Q4H PRN Administration HR>130 Multi-Ingred Cream/Lotion/Oil/Oint 1 applic 06/11/19 17:44 Artificial Tears Ophth Oint OU Q4HR PRN Dry Eye(s) Ondansetron HCl 4 mg 06/11/19 22:48 Zofran IV Q8H PRN Nausea And Vomiting Polyethylene Glycol 17 gm 06/20/19 14:00 06/21/19 16:05 Miralax 3350 PO 17 gm BID PRN Administration Constipation Quetiapine Fumarate 300 mg 06/13/19 11:00 06/25/19 10:24 Seroquel PO 300 mg BID DOMINICK Administration Simple Syrup 15 ml 06/13/19 17:52 Simple Syrup FEEDTUBE PRN PRN Hypoglycemia Simple Syrup 30 ml 06/13/19 17:52 Simple Syrup FEEDTUBE PRN PRN Hypoglycemia Sodium Bicarbonate 325 mg 06/13/19 17:52 Sodium Bicarbonate FEEDTUBE PRN PRN For Clogged Feeding Tube Sodium Chloride 10 ml 06/12/19 10:00 06/25/19 10:29 Sodium Chloride Flush Syringe 10 Ml IV 10 ml BID DOMINICK Administration Sodium Chloride 10 ml 06/11/19 22:48 06/18/19 21:06 Sodium Chloride Flush Syringe 10 Ml IV 10 ml PRN PRN Administration LINE FLUSH Venlafaxine HCl 75 mg 06/13/19 14:00 06/25/19 09:50 Effexor PO 75 mg TID DOMINICK Administration Nutrition/Malnutrition Assess - Dietary Evaluation Nutrition/Malnutrition Findings: Nutrition Notes Start: 06/12/19 11:05 Freq: Status: Active Protocol: Document 06/22/19 12:13 LM (Rec: 06/22/19 12:36 LM [email or web address]) Nutrition Notes Initial or Follow up Reassessment Current Diagnosis COPD,Coronary Artery Disease, Hypertension,Heart Failure, Respiratory Failure Other Pertinent Diagnosis COPD exacerbation Current Diet TF - Promote at 60ml/hr Labs/Tests reviewed Pertinent Medications reviewed Height 5 ft Weight 68 kg [place] Body Weight (kg) 45.45 BMI 29.2 Subjective/Other Information Promote running and pt tolerating TF. Na 137 yesterday. Percent of energy/protein needs met: 100%/99% Burn Absent Trauma Absent Current % PO Negligible Minimum of two criteria No #1 Nutrition Diagnosis Inadequate oral intake Diagnosis Progress(for reassessment Continues documentation) Is patient on ventilator? Yes Is Patient Ambulatory and/or Out of Bed No REE-([facility]-confined to bed) 1404.840 Calculation Used for Recommendations [facility] Additional Notes Pro needs 2g/kg IBW: 91g/day 1ml/kcal Nutrition Intervention Change Diet Order: Continue TF Nutrition Support: Promote 1.0 at 60ml/hr Flush 50ml q4h Kcal 1,440 Protein (gm) 90 Fluid (mL) 1,208 Goal #1 TF tolerance Goal #2 Meet at least 75% of energy and protein needs Anticipated Discharge Needs: Unable to identify at this time Follow-Up By: 06/25/19 Additional Comments F/U for TF tolerance
--- NOTE | 2019-06-25 14:16 | Progress Note ---
Assessment and Plan Cultures: Blood culture 06/11/2019 no growth Sputum culture 06/11/2019 pansensitive Pseudomonas Sputum culture 06/19/2019 Pseudomonas A/P: 59-year-old female past medical history GERD, tobacco abuse, COPD, CAD admitted to the hospital with COPD exacerbation admitted with acute hypoxic respiratory failure #Pseudomonas pneumonia: patient has been intubated for some time, and previously had Pseudomonas pneumonia. May have some colonization of the tube. Regardless, would continue to treat with meropenem, and may need up to 14 days treatment for a VAP. #COPD: High risk of respiratory failure as above. #Tobacco abuse Recs: -Currently on cefepime per culture results. May need up to 14 days. -WBC jump may be secondary to steroids. Thank you for the consult, we will continue to follow. Shukri Malone MD [facility] ([facility]) M: [phone] O: [phone] F: [phone] Subjective Date of service: 06/25/19 Principal diagnosis: Ac and ch hypoxic & hypercapnic resp failure; AE-COPD; Tobacco use disorder Interval history: Afebrile today. Ventilator on CPAP. Objective - Exam Narrative Exam: Physical Exam: Constitutional: Intubated Eyes: Conjunctivae/corneas clear. Neck: Intubated Oral: Intubated Cardiovascular: S1, S2 normal. Respiratory: Good air entry, clear to auscultation bilaterally GI: Soft, non-tender; bowel sounds normal. No peritoneal signs. Musculoskeletal: No pedal edema, no cyanosis. Skin: No rash or abscess Hem/Lymphatic: No palpable cervical or supraclavicular nodes. No lymphangitis Psych: Sedated Neurological: Sedated - Constitutional Vitals: Vital Signs Temp Pulse Resp BP Pulse Ox 98.0 F 105 H 18 127/82 97 06/25/19 12:00 06/25/19 13:22 06/25/19 13:01 06/25/19 13:22 06/25/19 13:01 Temperature -Last 24 Hours Temperature 98.0 F Temperature 97.2 F Temperature 98.4 F Temperature 98.9 F Temperature 97.8 F Temperature 98.2 F - Labs CBC & Chem 7: 06/25/19 04:38 06/25/19 04:38 Labs: Abnormal lab results 0406/24/19 06/25/19 Range/Units 12:34 16:55 00:10 WBC (4.5-11.0) K/mm3 MCH (28-32) pg RDW (13.2-15.2) % Plt Count (140-440) K/mm3 Seg Neuts % (Manual) (40.0-70.0) % Lymphocytes % (Manual) (13.4-35.0) % Seg Neutrophils # Man (1.8-7.7) K/mm3 Lymphocytes # (Manual) (1.2-5.4) K/mm3 Monocytes # (Manual) (0.0-0.8) K/mm3 ABG pO2 (80.0-90.0) mm Hg ABG HCO3 (20.0-26.0) mmol/L ABG O2 Saturation (95.0-99.0) % ABG Base Excess (-2.0-3.0) mmol/L ABG Hemoglobin (12.0-16.0) gm/dl Oxyhemoglobin (95.0-99.0) % Chloride (98-107) mmol/L Carbon Dioxide (22-30) mmol/L BUN (7-17) mg/dL Creatinine (0.7-1.2) mg/dL Glucose (65-100) mg/dL POC Glucose 171 H 152 H 145 H (70-105) 06/25/19 06/25/19 06/25/19 Range/Units 04:37 04:38 04:38 WBC 17.9 H (4.5-11.0) K/mm3 MCH 25 L (28-32) pg RDW 18.3 H (13.2-15.2) % Plt Count 124 L (140-440) K/mm3 Seg Neuts % (Manual) 94.0 H (40.0-70.0) % Lymphocytes % (Manual) 1.0 L (13.4-35.0) % Seg Neutrophils # Man 16.8 H (1.8-7.7) K/mm3 Lymphocytes # (Manual) 0.2 L (1.2-5.4) K/mm3 Monocytes # (Manual) 0.9 H (0.0-0.8) K/mm3 ABG pO2 62.7 L (80.0-90.0) mm Hg ABG HCO3 33.0 H (20.0-26.0) mmol/L ABG O2 Saturation 91.8 L (95.0-99.0) % ABG Base Excess 7.8 H (-2.0-3.0) mmol/L ABG Hemoglobin 10.0 L (12.0-16.0) gm/dl Oxyhemoglobin 90.2 L (95.0-99.0) % Chloride 95.4 L (98-107) mmol/L Carbon Dioxide 31 H (22-30) mmol/L BUN 22 H (7-17) mg/dL Creatinine 0.3 L (0.7-1.2) mg/dL Glucose 126 H (65-100) mg/dL POC Glucose (70-105) 06/25/19 06/25/19 Range/Units 05:40 12:45 WBC (4.5-11.0) K/mm3 MCH (28-32) pg RDW (13.2-15.2) % Plt Count (140-440) K/mm3 Seg Neuts % (Manual) (40.0-70.0) % Lymphocytes % (Manual) (13.4-35.0) % Seg Neutrophils # Man (1.8-7.7) K/mm3 Lymphocytes # (Manual) (1.2-5.4) K/mm3 Monocytes # (Manual) (0.0-0.8) K/mm3 ABG pO2 (80.0-90.0) mm Hg ABG HCO3 (20.0-26.0) mmol/L ABG O2 Saturation (95.0-99.0) % ABG Base Excess (-2.0-3.0) mmol/L ABG Hemoglobin (12.0-16.0) gm/dl Oxyhemoglobin (95.0-99.0) % Chloride (98-107) mmol/L Carbon Dioxide (22-30) mmol/L BUN (7-17) mg/dL Creatinine (0.7-1.2) mg/dL Glucose (65-100) mg/dL POC Glucose 128 H 169 H (70-105)
--- NOTE | 2019-06-25 15:29 | Progress Note ---
Assessment and Plan Acute and chronic hypoxic and hypercapnic respiratory failure: Acute exacerbation of COPD Tobacco use disorder/Nicotine dependence (on going) Hypernatremia History of coronary artery disease/CHF History of HTN Chronic narcotic dependence Chronic back pain Anxiety disorder History of depression; Obesity; BMI 32.2 - keep peep at 8 cm H2O - prn CXR's & ABG's - begin daytime PSV weaning trials today as tolerated - continue other care as below - continue rate control per cardiology - continue daily SAT and SBT assessment as tolerated - continue supplemental oxygen with restrictive strategies acutely re: severe COPD (PaO2 of 60 with O2 sats 88-90% is acceptable) - VAP bundle addressed (aspiration precautions; HOB > 40 degrees) - continue bronchodilators with pulmonary hygiene per RT - continue airborne, droplet and contact isolation - limit daily CXR's - Avoid benzodiazepine's, reduce the possibility of delirium - Continue with fentanyl, titrate for RASS of 0 to -1 - Maintenance of sleep-wake cycle, avoid delirium - continue enteral nutritional support at goal rate as tolerated - Accuchecks with glycemic control per SSI for target blood glucose of 140-180 mg/dL while critically ill; avoid hypoglycemia - VTE prophylaxis (Lovenox) - Stress ulcer prophylaxis (Prevacid) - continue systemic Steroids - Empiric Antibiotics (Cefepime); de-escalate per ID rec's - Monitor hemodynamics closely - Avoid delirium; Avoid benzodiazepines - Nicotine withdrawal precautions, nicotine patch - In view of ongoing smoking, recurrent hospital admission, will need to re- address advance directives and goals of care, once the patient is able to be a part of that discussion. Will also address smoking cessation again, once she is able to be a part of that discussion - continue other care per attending / other labor relations consultant's .... re-evaluate in am & prn CONDITION: CRITICAL PROGNOSIS: GUARDED CODE STATUS: FULL CODE The high probability of a clinically significant, sudden or life-threatening deterioration of the respiratory, cardiovascular, neurology, endocrine system(s) required my full and direct attention, intervention and personal management. The aggregate critical care time was [35] minutes without overlap. Time includes spent on; [x] Data Review and interpretation [x] Patient assessment and monitoring of vital signs [x] Documentation [x] Medication orders and management Subjective Date of service: 06/25/19 Principal diagnosis: Ac and ch hypoxic & hypercapnic resp failure; AE-COPD; Tobacco use disorder Interval history: Patient is seen today for: Ac and ch hypoxic hypercapnic resp failure; AE-COPD; Tobacco use disorder/Nicotine dependence; Hypernatremia; HTN (hypotensive at presentation 0; Chronic narcotic dependence ; Chronic back pain; Anxiety disorde r Seen and examined at bedside; 24-hour events reviewed; nursing and respiratory care staff consulted; no adverse overnight events reported to me; laying in bed; remains on MVS; FiO2 down to 40%; no N/V/F/C; normotensive Objective Vital Signs - 12hr 06/25/19 06/25/19 06/25/19 03:30 03:46 04:00 Temperature Pulse Rate 109 H 104 H 109 H Pulse Rate [ Bilateral] Pulse Rate [ 119 H Right Dorsalis Pedis] Respiratory 20 17 16 Rate Respiratory Rate [Bilateral ] Blood Pressure 126/78 126/78 136/70 O2 Sat by Pulse 97 98 92 Oximetry 06/25/19 06/25/19 06/25/19 04:16 04:30 04:35 Temperature Pulse Rate 106 H 106 H 101 H Pulse Rate [ Bilateral] Pulse Rate [ Right Dorsalis Pedis] Respiratory 15 13 Rate Respiratory Rate [Bilateral ] Blood Pressure 136/70 136/70 133/71 O2 Sat by Pulse 95 92 92 Oximetry 06/25/19 06/25/19 06/25/19 04:46 05:00 05:16 Temperature Pulse Rate 100 H 93 H 87 Pulse Rate [ Bilateral] Pulse Rate [ Right Dorsalis Pedis] Respiratory 14 15 12 Rate Respiratory Rate [Bilateral ] Blood Pressure 133/71 133/71 125/71 O2 Sat by Pulse 92 94 93 Oximetry 06/25/19 06/25/19 06/25/19 05:31 05:45 06:00 Temperature Pulse Rate 79 74 69 Pulse Rate [ Bilateral] Pulse Rate [ Right Dorsalis Pedis] Respiratory 18 16 16 Rate Respiratory Rate [Bilateral ] Blood Pressure 116/59 125/71 106/57 O2 Sat by Pulse 94 93 94 Oximetry 06/25/19 06/25/19 06/25/19 06:15 06:31 06:45 Temperature Pulse Rate 67 68 66 Pulse Rate [ Bilateral] Pulse Rate [ Right Dorsalis Pedis] Respiratory 16 12 15 Rate Respiratory Rate [Bilateral ] Blood Pressure 116/59 116/65 116/65 O2 Sat by Pulse 98 97 98 Oximetry 06/25/19 06/25/19 06/25/19 07:01 07:13 07:15 Temperature Pulse Rate 65 62 63 Pulse Rate [ 60 Bilateral] Pulse Rate [ Right Dorsalis Pedis] Respiratory 16 16 Rate Respiratory 16 Rate [Bilateral ] Blood Pressure 107/50 104/50 107/50 O2 Sat by Pulse 98 98 98 Oximetry 06/25/19 06/25/19 06/25/19 07:31 07:45 08:00 Temperature 97.2 F L Pulse Rate 62 62 67 Pulse Rate [ Bilateral] Pulse Rate [ Right Dorsalis Pedis] Respiratory 15 16 Rate Respiratory Rate [Bilateral ] Blood Pressure 104/50 104/50 O2 Sat by Pulse 98 97 96 Oximetry 06/25/19 06/25/19 06/25/19 08:01 08:15 08:31 Temperature Pulse Rate 61 66 62 Pulse Rate [ Bilateral] Pulse Rate [ Right Dorsalis Pedis] Respiratory 16 11 L 8 L Rate Respiratory Rate [Bilateral ] Blood Pressure 98/49 110/56 122/57 O2 Sat by Pulse 94 98 97 Oximetry 06/25/19 06/25/19 06/25/19 08:45 09:01 09:15 Temperature Pulse Rate 65 67 67 Pulse Rate [ Bilateral] Pulse Rate [ Right Dorsalis Pedis] Respiratory 9 L 8 L 9 L Rate Respiratory Rate [Bilateral ] Blood Pressure 122/57 112/56 112/56 O2 Sat by Pulse 97 96 97 Oximetry 06/25/19 06/25/19 06/25/19 09:31 09:45 10:00 Temperature Pulse Rate 67 69 66 Pulse Rate [ Bilateral] Pulse Rate [ Right Dorsalis Pedis] Respiratory 8 L 9 L 9 L Rate Respiratory Rate [Bilateral ] Blood Pressure 116/56 116/56 110/55 O2 Sat by Pulse 98 97 98 Oximetry 06/25/19 06/25/19 06/25/19 10:15 10:30 10:45 Temperature Pulse Rate 67 68 67 Pulse Rate [ Bilateral] Pulse Rate [ Right Dorsalis Pedis] Respiratory 8 L 8 L 7 L Rate Respiratory Rate [Bilateral ] Blood Pressure 110/55 110/56 110/56 O2 Sat by Pulse 98 98 97 Oximetry 06/25/19 06/25/19 06/25/19 11:00 11:15 11:30 Temperature Pulse Rate 67 68 76 Pulse Rate [ Bilateral] Pulse Rate [ Right Dorsalis Pedis] Respiratory 10 L 11 L 9 L Rate Respiratory Rate [Bilateral ] Blood Pressure 113/58 113/58 107/56 O2 Sat by Pulse 98 98 97 Oximetry 06/25/19 06/25/19 06/25/19 11:45 11:57 12:00 Temperature 98.0 F Pulse Rate 111 H 75 Pulse Rate [ Bilateral] Pulse Rate [ Right Dorsalis Pedis] Respiratory 11 L 18 Rate Respiratory Rate [Bilateral ] Blood Pressure 107/56 107/56 O2 Sat by Pulse 98 97 Oximetry 06/25/19 06/25/19 06/25/19 12:01 12:15 12:31 Temperature Pulse Rate 119 H 113 H 117 H Pulse Rate [ Bilateral] Pulse Rate [ Right Dorsalis Pedis] Respiratory 16 19 17 Rate Respiratory Rate [Bilateral ] Blood Pressure 130/77 130/77 134/77 O2 Sat by Pulse 95 95 95 Oximetry 06/25/19 06/25/19 06/25/19 12:45 13:01 13:22 Temperature Pulse Rate 112 H 109 H 105 H Pulse Rate [ Bilateral] Pulse Rate [ Right Dorsalis Pedis] Respiratory 21 18 Rate Respiratory Rate [Bilateral ] Blood Pressure 134/77 127/82 127/82 O2 Sat by Pulse 95 97 Oximetry 06/25/19 06/25/19 14:58 15:01 Temperature Pulse Rate 100 H Pulse Rate [ 105 H Bilateral] Pulse Rate [ Right Dorsalis Pedis] Respiratory 17 Rate Respiratory 20 Rate [Bilateral ] Blood Pressure 133/71 O2 Sat by Pulse 97 Oximetry Constitutional: no acute distress, other (elderly looking obese CF, normocephalic on MVS without signidficant dyssynchrony) Eyes: non-icteric ENT: oropharynx moist, other (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) Neck: supple, no lymphadenopathy, no JVD Effort: mildly labored Ascultation: Bilateral: diminished breath sounds, rhonchi Percussion: Bilateral: not dull Cardiovascular: regular rate and rhythm Gastrointestinal: normoactive bowel sounds, soft, non-tender, non-distended Integumentary: normal Extremities: no cyanosis, no edema, pulses normal, no ischemia or petechiae Neurologic: non-focal exam (grossly), pupils equal and round, CN II-XII normal, unable to assess Psychiatric: other (Unable to assess re: AMS) CBC and BMP: 06/28/19 00:58 06/28/19 00:58 ABG, PT/INR, D-dimer: ABG ABG pH 7.440 pH Units (7.350-7.450) 06/25/19 04:37 ABG pCO2 49.8 mm Hg 06/25/19 04:37 ABG pO2 62.7 mm Hg (80.0-90.0) L 06/25/19 04:37 ABG O2 Saturation 91.8 % (95.0-99.0) L 06/25/19 04:37 PT/INR, D-dimer PT 13.0 Sec. (12.2-14.9) 06/11/19 18:03 INR 0.97 (0.87-1.13) 06/11/19 18:03 D-Dimer 1177.30 ng/mlDDU (0-234) H 06/19/19 14:14 Abnormal lab findings: Abnormal Labs 06/11/19 06/11/19 06/11/19 18:03 18:03 18:03 WBC Hgb MCH 25 L RDW 19.4 H Plt Count 124 L [place] % (Auto) 10.3 H Lymph # 1.1 L Seg Neutrophils % 74.4 H Seg Neuts % (Manual) Lymphocytes % (Manual) Seg Neutrophils # Man Lymphocytes # (Manual) Monocytes # (Manual) D-Dimer ABG pH ABG pO2 ABG HCO3 ABG O2 Saturation ABG Base Excess ABG Hemoglobin Oxyhemoglobin Sodium 146 H Potassium Chloride Carbon Dioxide BUN 21 H Creatinine 0.4 L Glucose POC Glucose Calcium Magnesium 2.70 H Lactate Dehydrogenase CK-MB (CK-2) CK-MB (CK-2) Rel Index Albumin 3.5 L Ur Specific [place] Urine WBC (Auto) Digoxin Salicylates 1.0 L Acetaminophen 06/11/19 06/11/19 06/11/19 18:03 18:59 23:22 WBC Hgb MCH RDW Plt Count [place] % (Auto) Lymph # Seg Neutrophils % Seg Neuts % (Manual) Lymphocytes % (Manual) Seg Neutrophils # Man Lymphocytes # (Manual) Monocytes # (Manual) D-Dimer ABG pH 7.340 L ABG pO2 76.0 L ABG HCO3 34.6 H ABG O2 Saturation ABG Base Excess 7.1 H ABG Hemoglobin 10.9 L Oxyhemoglobin 91.6 L Sodium Potassium Chloride Carbon Dioxide BUN Creatinine Glucose POC Glucose Calcium Magnesium Lactate Dehydrogenase CK-MB (CK-2) 5.5 H CK-MB (CK-2) Rel Index 5.5 H Albumin Ur Specific [place] Urine WBC (Auto) Digoxin Salicylates Acetaminophen < 5.0 L 06/12/19 06/12/19 06/12/19 00:29 02:04 04:20 WBC Hgb MCH RDW Plt Count [place] % (Auto) Lymph # Seg Neutrophils % Seg Neuts % (Manual) Lymphocytes % (Manual) Seg Neutrophils # Man Lymphocytes # (Manual) Monocytes # (Manual) D-Dimer ABG pH 7.313 L ABG pO2 75.3 L ABG HCO3 29.9 H ABG O2 Saturation 94.3 L ABG Base Excess ABG Hemoglobin 10.8 L Oxyhemoglobin 92.0 L Sodium Potassium Chloride Carbon Dioxide BUN Creatinine Glucose POC Glucose 107 H Calcium Magnesium Lactate Dehydrogenase CK-MB (CK-2) CK-MB (CK-2) Rel Index Albumin Ur Specific [place] Urine WBC (Auto) 30.0 H Digoxin Salicylates Acetaminophen 06/12/19 06/12/19 06/12/19 05:09 05:09 05:09 WBC Hgb MCH 25 L RDW 19.4 H Plt Count 114 L [place] % (Auto) Lymph # Seg Neutrophils % Seg Neuts % (Manual) 91.0 H Lymphocytes % (Manual) 7.0 L Seg Neutrophils # Man Lymphocytes # (Manual) 0.4 L Monocytes # (Manual) D-Dimer ABG pH ABG pO2 ABG HCO3 ABG O2 Saturation ABG Base Excess ABG Hemoglobin Oxyhemoglobin Sodium 147 H Potassium Chloride 107.4 H Carbon Dioxide BUN 19 H Creatinine 0.4 L Glucose 110 H POC Glucose Calcium 8.2 L Magnesium Lactate Dehydrogenase CK-MB (CK-2) CK-MB (CK-2) Rel Index 5.4 H Albumin Ur Specific [place] Urine WBC (Auto) Digoxin Salicylates Acetaminophen 06/12/19 06/12/19 06/13/19 06:42 23:21 04:14 WBC Hgb MCH RDW Plt Count [place] % (Auto) Lymph # Seg Neutrophils % Seg Neuts % (Manual) Lymphocytes % (Manual) Seg Neutrophils # Man Lymphocytes # (Manual) Monocytes # (Manual) D-Dimer ABG pH ABG pO2 62.6 L ABG HCO3 29.6 H ABG O2 Saturation 91.0 L ABG Base Excess ABG Hemoglobin 10.3 L Oxyhemoglobin 89.0 L Sodium Potassium Chloride Carbon Dioxide BUN Creatinine Glucose POC Glucose 108 H 106 H Calcium Magnesium Lactate Dehydrogenase CK-MB (CK-2) CK-MB (CK-2) Rel Index Albumin Ur Specific [place] Urine WBC (Auto) Digoxin Salicylates Acetaminophen 06/13/19 06/13/19 06/13/19 04:54 04:54 12:20 WBC Hgb MCH 25 L RDW 19.2 H Plt Count 119 L [place] % (Auto) Lymph # Seg Neutrophils % Seg Neuts % (Manual) 95.0 H Lymphocytes % (Manual) 2.0 L Seg Neutrophils # Man 9.1 H Lymphocytes # (Manual) 0.2 L Monocytes # (Manual) D-Dimer ABG pH ABG pO2 ABG HCO3 ABG O2 Saturation ABG Base Excess ABG Hemoglobin Oxyhemoglobin Sodium 149 H Potassium Chloride 111.4 H Carbon Dioxide BUN 26 H Creatinine 0.5 L Glucose 107 H POC Glucose 125 H Calcium Magnesium Lactate Dehydrogenase CK-MB (CK-2) CK-MB (CK-2) Rel Index Albumin Ur Specific [place] Urine WBC (Auto) Digoxin Salicylates Acetaminophen 06/13/19 06/14/19 06/14/19 17:25 03:44 04:55 WBC Hgb MCH RDW Plt Count [place] % (Auto) Lymph # Seg Neutrophils % Seg Neuts % (Manual) Lymphocytes % (Manual) Seg Neutrophils # Man Lymphocytes # (Manual) Monocytes # (Manual) D-Dimer ABG pH ABG pO2 58.9 L ABG HCO3 29.5 H ABG O2 Saturation 88.7 L ABG Base Excess ABG Hemoglobin 10.2 L Oxyhemoglobin 86.7 L Sodium 150 H Potassium Chloride 110.4 H Carbon Dioxide BUN 20 H Creatinine 0.4 L Glucose 105 H POC Glucose 128 H Calcium Magnesium Lactate Dehydrogenase CK-MB (CK-2) CK-MB (CK-2) Rel Index Albumin Ur Specific [place] Urine WBC (Auto) Digoxin Salicylates Acetaminophen 06/14/19 06/14/19 06/14/19 05:37 11:58 21:00 WBC Hgb MCH RDW Plt Count [place] % (Auto) Lymph # Seg Neutrophils % Seg Neuts % (Manual) Lymphocytes % (Manual) Seg Neutrophils # Man Lymphocytes # (Manual) Monocytes # (Manual) D-Dimer ABG pH 7.321 L ABG pO2 60.0 L ABG HCO3 31.4 H ABG O2 Saturation 87.3 L ABG Base Excess 4.1 H ABG Hemoglobin 10.6 L Oxyhemoglobin 84.8 L Sodium Potassium Chloride Carbon Dioxide BUN Creatinine Glucose POC Glucose 111 H 116 H Calcium Magnesium Lactate Dehydrogenase CK-MB (CK-2) CK-MB (CK-2) Rel Index Albumin Ur Specific [place] Urine WBC (Auto) Digoxin Salicylates Acetaminophen 06/15/19 06/15/19 06/15/19 00:22 03:25 05:08 WBC Hgb MCH RDW Plt Count [place] % (Auto) Lymph # Seg Neutrophils % Seg Neuts % (Manual) Lymphocytes % (Manual) Seg Neutrophils # Man Lymphocytes # (Manual) Monocytes # (Manual) D-Dimer ABG pH 7.317 L ABG pO2 ABG HCO3 31.5 H ABG O2 Saturation ABG Base Excess 4.1 H ABG Hemoglobin 10.4 L Oxyhemoglobin 94.1 L Sodium Potassium Chloride Carbon Dioxide 31 H BUN 23 H Creatinine 0.3 L Glucose 120 H POC Glucose 108 H Calcium Magnesium Lactate Dehydrogenase CK-MB (CK-2) CK-MB (CK-2) Rel Index Albumin Ur Specific [place] Urine WBC (Auto) Digoxin Salicylates Acetaminophen 06/15/19 06/15/19 06/15/19 05:24 11:41 17:38 WBC Hgb MCH RDW Plt Count [place] % (Auto) Lymph # Seg Neutrophils % Seg Neuts % (Manual) Lymphocytes % (Manual) Seg Neutrophils # Man Lymphocytes # (Manual) Monocytes # (Manual) D-Dimer ABG pH ABG pO2 ABG HCO3 ABG O2 Saturation ABG Base Excess ABG Hemoglobin Oxyhemoglobin Sodium Potassium Chloride Carbon Dioxide BUN Creatinine Glucose POC Glucose 111 H 154 H 115 H Calcium Magnesium Lactate Dehydrogenase CK-MB (CK-2) CK-MB (CK-2) Rel Index Albumin Ur Specific [place] Urine WBC (Auto) Digoxin Salicylates Acetaminophen 06/15/19 06/16/19 06/16/19 23:31 03:40 05:18 WBC Hgb MCH RDW Plt Count [place] % (Auto) Lymph # Seg Neutrophils % Seg Neuts % (Manual) Lymphocytes % (Manual) Seg Neutrophils # Man Lymphocytes # (Manual) Monocytes # (Manual) D-Dimer ABG pH 7.313 L ABG pO2 96.4 H ABG HCO3 35.2 H ABG O2 Saturation ABG Base Excess 7.2 H ABG Hemoglobin 10.5 L Oxyhemoglobin 94.9 L Sodium Potassium Chloride Carbon Dioxide BUN Creatinine Glucose POC Glucose 161 H 158 H Calcium Magnesium Lactate Dehydrogenase CK-MB (CK-2) CK-MB (CK-2) Rel Index Albumin Ur Specific [place] Urine WBC (Auto) Digoxin Salicylates Acetaminophen 06/16/19 06/16/19 06/16/19 05:45 05:45 12:06 WBC 12.1 H Hgb MCH 25 L RDW 18.7 H Plt Count 93 L [place] % (Auto) Lymph # Seg Neutrophils % Seg Neuts % (Manual) 97.0 H Lymphocytes % (Manual) 0 L Seg Neutrophils # Man 11.7 H Lymphocytes # (Manual) 0.0 L Monocytes # (Manual) D-Dimer ABG pH ABG pO2 ABG HCO3 ABG O2 Saturation ABG Base Excess ABG Hemoglobin Oxyhemoglobin Sodium Potassium Chloride Carbon Dioxide 33 H BUN 25 H Creatinine 0.3 L Glucose 165 H POC Glucose 178 H Calcium Magnesium Lactate Dehydrogenase CK-MB (CK-2) CK-MB (CK-2) Rel Index Albumin Ur Specific [place] Urine WBC (Auto) Digoxin Salicylates Acetaminophen 06/16/19 06/16/19 06/17/19 17:55 23:42 03:35 WBC Hgb MCH RDW Plt Count [place] % (Auto) Lymph # Seg Neutrophils % Seg Neuts % (Manual) Lymphocytes % (Manual) Seg Neutrophils # Man Lymphocytes # (Manual) Monocytes # (Manual) D-Dimer ABG pH ABG pO2 73.2 L ABG HCO3 35.2 H ABG O2 Saturation 94.5 L ABG Base Excess 8.8 H ABG Hemoglobin 10.7 L Oxyhemoglobin 92.6 L Sodium Potassium Chloride Carbon Dioxide BUN Creatinine Glucose POC Glucose 180 H 160 H Calcium Magnesium Lactate Dehydrogenase CK-MB (CK-2) CK-MB (CK-2) Rel Index Albumin Ur Specific [place] Urine WBC (Auto) Digoxin Salicylates Acetaminophen 06/17/19 06/17/19 06/17/19 04:57 09:45 11:59 WBC 11.7 H Hgb MCH 25 L RDW 18.2 H Plt Count 79 L [place] % (Auto) Lymph # Seg Neutrophils % Seg Neuts % (Manual) 96.0 H Lymphocytes % (Manual) 3.0 L Seg Neutrophils # Man 11.2 H Lymphocytes # (Manual) 0.4 L Monocytes # (Manual) D-Dimer ABG pH ABG pO2 ABG HCO3 ABG O2 Saturation ABG Base Excess ABG Hemoglobin Oxyhemoglobin Sodium Potassium Chloride Carbon Dioxide 34 H BUN 31 H Creatinine 0.3 L Glucose 153 H POC Glucose 163 H Calcium Magnesium Lactate Dehydrogenase CK-MB (CK-2) CK-MB (CK-2) Rel Index Albumin Ur Specific [place] Urine WBC (Auto) Digoxin Salicylates Acetaminophen 06/17/19 06/17/19 06/17/19 12:34 17:33 23:39 WBC Hgb MCH RDW Plt Count [place] % (Auto) Lymph # Seg Neutrophils % Seg Neuts % (Manual) Lymphocytes % (Manual) Seg Neutrophils # Man Lymphocytes # (Manual) Monocytes # (Manual) D-Dimer ABG pH ABG pO2 ABG HCO3 ABG O2 Saturation ABG Base Excess ABG Hemoglobin Oxyhemoglobin Sodium Potassium Chloride Carbon Dioxide BUN Creatinine Glucose POC Glucose 171 H 186 H 161 H Calcium Magnesium Lactate Dehydrogenase CK-MB (CK-2) CK-MB (CK-2) Rel Index Albumin Ur Specific [place] Urine WBC (Auto) Digoxin Salicylates Acetaminophen 06/18/19 06/18/19 06/18/19 04:25 05:23 05:23 WBC 13.2 H Hgb MCH 25 L RDW 18.3 H Plt Count 81 L [place] % (Auto) Lymph # Seg Neutrophils % Seg Neuts % (Manual) 96.0 H Lymphocytes % (Manual) 4.0 L Seg Neutrophils # Man 12.7 H Lymphocytes # (Manual) 0.5 L Monocytes # (Manual) D-Dimer ABG pH ABG pO2 72.9 L ABG HCO3 33.8 H ABG O2 Saturation 94.6 L ABG Base Excess 7.3 H ABG Hemoglobin 11.1 L Oxyhemoglobin 92.8 L Sodium Potassium Chloride Carbon Dioxide 34 H BUN 36 H Creatinine 0.3 L Glucose 162 H POC Glucose Calcium Magnesium Lactate Dehydrogenase CK-MB (CK-2) CK-MB (CK-2) Rel Index Albumin Ur Specific [place] Urine WBC (Auto) Digoxin Salicylates Acetaminophen 06/18/19 06/18/19 06/18/19 05:37 12:26 18:17 WBC Hgb MCH RDW Plt Count [place] % (Auto) Lymph # Seg Neutrophils % Seg Neuts % (Manual) Lymphocytes % (Manual) Seg Neutrophils # Man Lymphocytes # (Manual) Monocytes # (Manual) D-Dimer ABG pH ABG pO2 ABG HCO3 ABG O2 Saturation ABG Base Excess ABG Hemoglobin Oxyhemoglobin Sodium Potassium Chloride Carbon Dioxide BUN Creatinine Glucose POC Glucose 177 H 156 H 134 H Calcium Magnesium Lactate Dehydrogenase CK-MB (CK-2) CK-MB (CK-2) Rel Index Albumin Ur Specific [place] Urine WBC (Auto) Digoxin Salicylates Acetaminophen 06/18/19 06/19/19 06/19/19 23:51 05:58 12:12 WBC Hgb MCH RDW Plt Count [place] % (Auto) Lymph # Seg Neutrophils % Seg Neuts % (Manual) Lymphocytes % (Manual) Seg Neutrophils # Man Lymphocytes # (Manual) Monocytes # (Manual) D-Dimer ABG pH ABG pO2 ABG HCO3 ABG O2 Saturation ABG Base Excess ABG Hemoglobin Oxyhemoglobin Sodium Potassium Chloride Carbon Dioxide BUN Creatinine Glucose POC Glucose 153 H 143 H 186 H Calcium Magnesium Lactate Dehydrogenase CK-MB (CK-2) CK-MB (CK-2) Rel Index Albumin Ur Specific [place] Urine WBC (Auto) Digoxin Salicylates Acetaminophen 06/19/19 06/19/19 06/19/19 12:40 14:14 14:14 WBC Hgb MCH RDW Plt Count [place] % (Auto) Lymph # Seg Neutrophils % Seg Neuts % (Manual) Lymphocytes % (Manual) Seg Neutrophils # Man Lymphocytes # (Manual) Monocytes # (Manual) D-Dimer 1177.30 H ABG pH ABG pO2 ABG HCO3 ABG O2 Saturation ABG Base Excess ABG Hemoglobin Oxyhemoglobin Sodium Potassium Chloride Carbon Dioxide BUN Creatinine Glucose POC Glucose Calcium Magnesium Lactate Dehydrogenase 290 H CK-MB (CK-2) CK-MB (CK-2) Rel Index Albumin Ur Specific [place] 1.032 H Urine WBC (Auto) Digoxin Salicylates Acetaminophen 06/19/19 06/19/19 06/19/19 16:40 17:00 23:50 WBC Hgb MCH RDW Plt Count [place] % (Auto) Lymph # Seg Neutrophils % Seg Neuts % (Manual) Lymphocytes % (Manual) Seg Neutrophils # Man Lymphocytes # (Manual) Monocytes # (Manual) D-Dimer ABG pH ABG pO2 54.2 L ABG HCO3 32.1 H ABG O2 Saturation 87.8 L ABG Base Excess 6.3 H ABG Hemoglobin 11.2 L Oxyhemoglobin 85.9 L Sodium Potassium Chloride Carbon Dioxide BUN Creatinine Glucose POC Glucose 137 H 148 H Calcium Magnesium Lactate Dehydrogenase CK-MB (CK-2) CK-MB (CK-2) Rel Index Albumin Ur Specific [place] Urine WBC (Auto) Digoxin Salicylates Acetaminophen 06/20/19 06/20/19 06/20/19 05:14 05:30 05:40 WBC 16.4 H Hgb MCH 25 L RDW 18.3 H Plt Count 79 L [place] % (Auto) Lymph # Seg Neutrophils % Seg Neuts % (Manual) Lymphocytes % (Manual) Seg Neutrophils # Man Lymphocytes # (Manual) Monocytes # (Manual) D-Dimer ABG pH ABG pO2 63.4 L ABG HCO3 32.9 H ABG O2 Saturation 91.8 L ABG Base Excess 6.2 H ABG Hemoglobin 10.4 L Oxyhemoglobin 89.7 L Sodium Potassium Chloride Carbon Dioxide BUN Creatinine Glucose POC Glucose 164 H Calcium Magnesium Lactate Dehydrogenase CK-MB (CK-2) CK-MB (CK-2) Rel Index Albumin Ur Specific [place] Urine WBC (Auto) Digoxin Salicylates Acetaminophen 06/20/19 06/20/19 06/20/19 05:40 12:35 18:32 WBC Hgb MCH RDW Plt Count [place] % (Auto) Lymph # Seg Neutrophils % Seg Neuts % (Manual) Lymphocytes % (Manual) Seg Neutrophils # Man Lymphocytes # (Manual) Monocytes # (Manual) D-Dimer ABG pH ABG pO2 ABG HCO3 ABG O2 Saturation ABG Base Excess ABG Hemoglobin Oxyhemoglobin Sodium Potassium Chloride Carbon Dioxide 31 H BUN 25 H Creatinine 0.3 L Glucose 150 H POC Glucose 162 H 159 H Calcium Magnesium Lactate Dehydrogenase CK-MB (CK-2) CK-MB (CK-2) Rel Index Albumin Ur Specific [place] Urine WBC (Auto) Digoxin Salicylates Acetaminophen 06/21/19 06/21/19 06/21/19 00:12 04:58 04:58 WBC 13.9 H Hgb 9.7 L MCH 25 L RDW 17.9 H Plt Count 85 L [place] % (Auto) Lymph # Seg Neutrophils % Seg Neuts % (Manual) Lymphocytes % (Manual) Seg Neutrophils # Man Lymphocytes # (Manual) Monocytes # (Manual) D-Dimer ABG pH ABG pO2 ABG HCO3 ABG O2 Saturation ABG Base Excess ABG Hemoglobin Oxyhemoglobin Sodium Potassium Chloride Carbon Dioxide 31 H BUN 23 H Creatinine 0.3 L Glucose 142 H POC Glucose 144 H Calcium Magnesium Lactate Dehydrogenase CK-MB (CK-2) CK-MB (CK-2) Rel Index Albumin Ur Specific [place] Urine WBC (Auto) Digoxin Salicylates Acetaminophen 06/21/19 06/21/19 06/21/19 05:42 12:43 23:17 WBC Hgb MCH RDW Plt Count [place] % (Auto) Lymph # Seg Neutrophils % Seg Neuts % (Manual) Lymphocytes % (Manual) Seg Neutrophils # Man Lymphocytes # (Manual) Monocytes # (Manual) D-Dimer ABG pH ABG pO2 ABG HCO3 ABG O2 Saturation ABG Base Excess ABG Hemoglobin Oxyhemoglobin Sodium Potassium Chloride Carbon Dioxide BUN Creatinine Glucose POC Glucose 137 H 118 H 141 H Calcium Magnesium Lactate Dehydrogenase CK-MB (CK-2) CK-MB (CK-2) Rel Index Albumin Ur Specific [place] Urine WBC (Auto) Digoxin Salicylates Acetaminophen 06/22/19 06/22/19 06/22/19 05:28 12:11 18:27 WBC Hgb MCH RDW Plt Count [place] % (Auto) Lymph # Seg Neutrophils % Seg Neuts % (Manual) Lymphocytes % (Manual) Seg Neutrophils # Man Lymphocytes # (Manual) Monocytes # (Manual) D-Dimer ABG pH ABG pO2 ABG HCO3 ABG O2 Saturation ABG Base Excess ABG Hemoglobin Oxyhemoglobin Sodium Potassium Chloride Carbon Dioxide BUN Creatinine Glucose POC Glucose 144 H 138 H 169 H Calcium Magnesium Lactate Dehydrogenase CK-MB (CK-2) CK-MB (CK-2) Rel Index Albumin Ur Specific [place] Urine WBC (Auto) Digoxin Salicylates Acetaminophen 06/23/19 06/23/19 06/23/19 00:12 05:05 05:05 WBC 11.5 H Hgb MCH 25 L RDW 17.5 H Plt Count 98 L [place] % (Auto) Lymph # Seg Neutrophils % Seg Neuts % (Manual) 88.0 H Lymphocytes % (Manual) 4.0 L Seg Neutrophils # Man 10.1 H Lymphocytes # (Manual) 0.5 L Monocytes # (Manual) D-Dimer ABG pH ABG pO2 ABG HCO3 ABG O2 Saturation ABG Base Excess ABG Hemoglobin Oxyhemoglobin Sodium 133 L Potassium 5.3 H Chloride 95.5 L Carbon Dioxide BUN 24 H Creatinine 0.3 L Glucose 168 H POC Glucose 154 H Calcium Magnesium 2.60 H Lactate Dehydrogenase CK-MB (CK-2) CK-MB (CK-2) Rel Index Albumin Ur Specific [place] Urine WBC (Auto) Digoxin Salicylates Acetaminophen 06/23/19 06/23/19 06/23/19 05:15 08:50 12:00 WBC Hgb MCH RDW Plt Count [place] % (Auto) Lymph # Seg Neutrophils % Seg Neuts % (Manual) Lymphocytes % (Manual) Seg Neutrophils # Man Lymphocytes # (Manual) Monocytes # (Manual) D-Dimer ABG pH ABG pO2 56.9 L ABG HCO3 33.2 H ABG O2 Saturation 88.0 L ABG Base Excess 7.0 H ABG Hemoglobin 9.9 L Oxyhemoglobin 86.4 L Sodium Potassium Chloride Carbon Dioxide BUN Creatinine Glucose POC Glucose 174 H 168 H Calcium Magnesium Lactate Dehydrogenase CK-MB (CK-2) CK-MB (CK-2) Rel Index Albumin Ur Specific [place] Urine WBC (Auto) Digoxin Salicylates Acetaminophen 06/23/19 06/23/19 06/24/19 17:54 23:55 04:41 WBC Hgb MCH RDW Plt Count [place] % (Auto) Lymph # Seg Neutrophils % Seg Neuts % (Manual) Lymphocytes % (Manual) Seg Neutrophils # Man Lymphocytes # (Manual) Monocytes # (Manual) D-Dimer ABG pH ABG pO2 ABG HCO3 ABG O2 Saturation ABG Base Excess ABG Hemoglobin Oxyhemoglobin Sodium Potassium Chloride Carbon Dioxide BUN Creatinine Glucose POC Glucose 146 H 145 H Calcium Magnesium Lactate Dehydrogenase CK-MB (CK-2) CK-MB (CK-2) Rel Index Albumin Ur Specific [place] Urine WBC (Auto) Digoxin 0.5 L Salicylates Acetaminophen 06/24/19 06/24/19 06/24/19 05:53 12:01 16:55 WBC Hgb MCH RDW Plt Count [place] % (Auto) Lymph # Seg Neutrophils % Seg Neuts % (Manual) Lymphocytes % (Manual) Seg Neutrophils # Man Lymphocytes # (Manual) Monocytes # (Manual) D-Dimer ABG pH ABG pO2 ABG HCO3 ABG O2 Saturation ABG Base Excess ABG Hemoglobin Oxyhemoglobin Sodium Potassium Chloride Carbon Dioxide BUN Creatinine Glucose POC Glucose 184 H 178 H 152 H Calcium Magnesium Lactate Dehydrogenase CK-MB (CK-2) CK-MB (CK-2) Rel Index Albumin Ur Specific [place] Urine WBC (Auto) Digoxin Salicylates Acetaminophen 06/25/19 06/25/19 06/25/19 00:10 04:37 04:38 WBC 17.9 H Hgb MCH 25 L RDW 18.3 H Plt Count 124 L [place] % (Auto) Lymph # Seg Neutrophils % Seg Neuts % (Manual) 94.0 H Lymphocytes % (Manual) 1.0 L Seg Neutrophils # Man 16.8 H Lymphocytes # (Manual) 0.2 L Monocytes # (Manual) 0.9 H D-Dimer ABG pH ABG pO2 62.7 L ABG HCO3 33.0 H ABG O2 Saturation 91.8 L ABG Base Excess 7.8 H ABG Hemoglobin 10.0 L Oxyhemoglobin 90.2 L Sodium Potassium Chloride Carbon Dioxide BUN Creatinine Glucose POC Glucose 145 H Calcium Magnesium Lactate Dehydrogenase CK-MB (CK-2) CK-MB (CK-2) Rel Index Albumin Ur Specific [place] Urine WBC (Auto) Digoxin Salicylates Acetaminophen 06/25/19 06/25/19 06/25/19 04:38 05:40 12:45 WBC Hgb MCH RDW Plt Count [place] % (Auto) Lymph # Seg Neutrophils % Seg Neuts % (Manual) Lymphocytes % (Manual) Seg Neutrophils # Man Lymphocytes # (Manual) Monocytes # (Manual) D-Dimer ABG pH ABG pO2 ABG HCO3 ABG O2 Saturation ABG Base Excess ABG Hemoglobin Oxyhemoglobin Sodium Potassium Chloride 95.4 L Carbon Dioxide 31 H BUN 22 H Creatinine 0.3 L Glucose 126 H POC Glucose 128 H 169 H Calcium Magnesium Lactate Dehydrogenase CK-MB (CK-2) CK-MB (CK-2) Rel Index Albumin Ur Specific [place] Urine WBC (Auto) Digoxin Salicylates Acetaminophen Chest x-ray: pending Allied health notes reviewed: nursing
[2019-06-26] MEDS: INSULIN LISPRO 100 UNIT/ML SUB-Q SCH ×4 (01:00→18:07)
[2019-06-26] MEDS: fentaNYL DRIP Premix 2,000 MCG/100 ML BAG IV SCH ×2 (01:48→08:31)
[2019-06-26] MEDS: CEFEPIME/NS 1 GM/100 ML 1 GM/100 ML BAG IV SCH ×3 (05:09→21:49)
[2019-06-26] MEDS: methylPREDNISolone Sod Succinate 40 MG/1 ML INJ IV SCH ×3 (05:10→17:59)
[2019-06-26] MEDS: dilTIAZem 30 MG TAB PO SCH ×3 (05:10→21:49)
[2019-06-26] MEDS: BUDESONIDE 0.5 MG/2 ML NEBU IH SCH ×2 (08:35→21:09)
[2019-06-26] MEDS: ARFORMOTEROL 15 MCG/2 ML NEBU IH SCH ×2 (08:35→21:09)
[2019-06-26] MEDS: IPRATROPIUM/ALBUTEROL SULFATE 3 ML AMPUL.NEB IH SCH ×3 (08:35→21:09)
--- NOTE | 2019-06-26 08:47 | Progress Note ---
Assessment and Plan Assessment and plan: --COVID-19 was ruled out. --sepsis/pneumonia/sputum Pseudomonas 06/11/2019; present on admission ID following , continue cefepime Sputum cultures again positive Pseudomonas on 06/19/2019 --Ac. hypoxic,hypercapnic resp. failure: On vent > 96 hours Nebulizers, IV steroids, IV antibiotics inhalation steroids Pulmonary critical following, supportive care Wean as tolerated and extubate --Left lung basilar density; pneumonia Sputum cultures positive for Pseudomonas Continue cefepime --Paroxysmal A. fib/flutter; RVR On amiodarone, digoxin and Cardizem Closely monitor, cardiology following-digoxin adjusted to 0.125 mg every other day per cardiology Changed amiodarone to 100 mg daily No chronic anticoagulation due to history of GI bleed --History of coronary artery disease/CHF Low-dose Lasix, continue other cardiac meds --Hypernatremia; resolved monitor sodium levels --History of depression; Resume antidepressive medications --Ongoing tobacco use; Will child care counselor smoking cessation when patient is more stable Nicotine patch as needed --Obesity; BMI 32.2 Patient needs weight reduction when medically stable --Thrombocytopenia; HIT antibody negative --Tube feeding diet; per dietary recommendations --DVT prophylaxis; Lovenox --Full CODE STATUS Restraints in place. Patient is critically ill with poor prognosis Closely monitor the patient and adjust management as needed Follow golf tournament consultant recommendations The high probability of a clinically significant, sudden or life threatening d eterioration of the [respiratory, CVS] system(s) required my full and direct attention, intervention and personal management. The aggregate critical care time was [33] minutes. This time is in addition to time spent performing reported procedures but includes the following: [x] Data Review and interpretation [x] Patient assessment and monitoring of vital signs [x] Documentation [x] Medication orders and management Critical care time 35 minutes History Interval history: Patient seen and examined this morning at the bedside Patient's chart and medications, overnight events reviewed Patient remains intubated on ventilatory support Vital signs noted Hospitalist Physical - Constitutional Vitals: Temp Pulse Resp BP Pulse Ox 98.9 F 61 14 151/71 100 06/26/19 04:00 06/26/19 08:30 06/26/19 07:01 06/26/19 08:30 06/26/19 08:30 General appearance: Present: no acute distress, well-nourished, obese, other (Intubated on ventilatory support sedated) - EENT Eyes: Present: PERRL, EOM intact - Neck Neck: Present: supple, normal ROM - Respiratory Respiratory effort: normal Respiratory: bilateral: diminished, rhonchi, negative: rales, wheezing - Cardiovascular Rhythm: regular Heart Sounds: Present: S1 & S2 - Extremities Extremities: no ischemia, No edema - Abdominal General gastrointestinal: soft, non-tender, non-distended, normal bowel sounds - Integumentary Integumentary: Present: clear, warm - Psychiatric Psychiatric: other (Intubated on vent) - Neurologic Neurologic: other (Intubated on vent) Results - Labs CBC & Chem 7: 06/25/19 04:38 06/25/19 04:38 Labs: Laboratory Last Values WBC 17.9 K/mm3 (4.5-11.0) H 06/25/19 04:38 RBC 4.49 M/mm3 (3.65-5.03) 06/25/19 04:38 Hgb 11.0 gm/dl (10.1-14.3) 06/25/19 04:38 Hct 35.9 % (30.3-42.9) 06/25/19 04:38 MCV 80 fl (79-97) 06/25/19 04:38 MCH 25 pg (28-32) L 06/25/19 04:38 MCHC 31 % (30-34) 06/25/19 04:38 RDW 18.3 % (13.2-15.2) H 06/25/19 04:38 Plt Count 124 K/mm3 (140-440) L 06/25/19 04:38 Lymph % (Auto) 13.7 % (13.4-35.0) 06/11/19 18:03 [place] % (Auto) 10.3 % (0.0-7.3) H 06/11/19 18:03 Eos % (Auto) 0.8 % (0.0-4.3) 06/11/19 18:03 Baso % (Auto) 0.8 % (0.0-1.8) 06/11/19 18:03 Lymph # 1.1 K/mm3 (1.2-5.4) L 06/11/19 18:03 [place] # 0.8 K/mm3 (0.0-0.8) 06/11/19 18:03 Eos # 0.1 K/mm3 (0.0-0.4) 06/11/19 18:03 Baso # 0.1 K/mm3 (0.0-0.1) 06/11/19 18:03 Add Manual Diff Complete 06/25/19 04:38 Total Counted 100 06/25/19 04:38 Seg Neutrophils % Prop And Effects Designer 06/25/19 04:38 Seg Neuts % (Manual) 94.0 % (40.0-70.0) H 06/25/19 04:38 Band Neutrophils % 0 % 06/25/19 04:38 Lymphocytes % (Manual) 1.0 % (13.4-35.0) L 06/25/19 04:38 Reactive Lymphs % (Man) 0 % 06/25/19 04:38 Monocytes % (Manual) 5.0 % (0.0-7.3) 06/25/19 04:38 Eosinophils % (Manual) 0 % (0.0-4.3) 06/25/19 04:38 Basophils % (Manual) 0 % (0.0-1.8) 06/25/19 04:38 Metamyelocytes % 0 % 06/25/19 04:38 Myelocytes % 0 % 06/25/19 04:38 Promyelocytes % 0 % 06/25/19 04:38 Blast Cells % 0 % 06/25/19 04:38 Nucleated RBC % Not Reportable 06/25/19 04:38 Seg Neutrophils # 6.0 K/mm3 (1.8-7.7) 06/11/19 18:03 Seg Neutrophils # Man 16.8 K/mm3 (1.8-7.7) H 06/25/19 04:38 Band Neutrophils # 0.0 K/mm3 06/25/19 04:38 Lymphocytes # (Manual) 0.2 K/mm3 (1.2-5.4) L 06/25/19 04:38 Abs React Lymphs (Man) 0.0 K/mm3 06/25/19 04:38 Monocytes # (Manual) 0.9 K/mm3 (0.0-0.8) H 06/25/19 04:38 Eosinophils # (Manual) 0.0 K/mm3 (0.0-0.4) 06/25/19 04:38 Basophils # (Manual) 0.0 K/mm3 (0.0-0.1) 06/25/19 04:38 Metamyelocytes # 0.0 K/mm3 06/25/19 04:38 Myelocytes # 0.0 K/mm3 06/25/19 04:38 Promyelocytes # 0.0 K/mm3 06/25/19 04:38 Blast Cells # 0.0 K/mm3 06/25/19 04:38 WBC Morphology Not Reportable 06/25/19 04:38 Hypersegmented Neuts Not Reportable 06/25/19 04:38 Hyposegmented Neuts Not Reportable 06/25/19 04:38 Hypogranular Neuts Not Reportable 06/25/19 04:38 Smudge Cells Not Reportable 06/25/19 04:38 Toxic Granulation Not Reportable 06/25/19 04:38 Toxic Vacuolation Not Reportable 06/25/19 04:38 Dohle Bodies Not Reportable 06/25/19 04:38 [place]-Huet Anomaly Not Reportable 06/25/19 04:38 Neha Rods Not Reportable 06/25/19 04:38 Platelet Estimate Consistent w auto 06/25/19 04:38 Clumped Platelets Not Reportable 06/25/19 04:38 Plt Clumps, EDTA Not Reportable 06/25/19 04:38 Large Platelets Not Reportable 06/25/19 04:38 Giant Platelets Not Reportable 06/25/19 04:38 Platelet Satelliting Not Reportable 06/25/19 04:38 Plt Morphology Comment Not Reportable 06/25/19 04:38 RBC Morphology Not Reportable 06/25/19 04:38 Dimorphic RBCs Not Reportable 06/25/19 04:38 Polychromasia Not Reportable 06/25/19 04:38 Hypochromasia 1+ 06/25/19 04:38 Poikilocytosis Not Reportable 06/25/19 04:38 Anisocytosis Rare 06/25/19 04:38 Microcytosis Not Reportable 06/25/19 04:38 Macrocytosis Rare 06/25/19 04:38 Spherocytes Not Reportable 06/25/19 04:38 Pappenheimer Bodies Not Reportable 06/25/19 04:38 Sickle Cells Not Reportable 06/25/19 04:38 Target Cells Not Reportable 06/25/19 04:38 Tear Drop Cells Not Reportable 06/25/19 04:38 Ovalocytes Not Reportable 06/25/19 04:38 Stomatocytes Rare 06/25/19 04:38 Helmet Cells Not Reportable 06/25/19 04:38 [place] Bodies Not Reportable 06/25/19 04:38 [place] Rings Not Reportable 06/25/19 04:38 [place] Cells Not Reportable 06/25/19 04:38 Bite Cells Not Reportable 06/25/19 04:38 Crenated Cell Not Reportable 06/25/19 04:38 Elliptocytes Rare 06/25/19 04:38 Acanthocytes (Spur) Not Reportable 06/25/19 04:38 Rouleaux Not Reportable 06/25/19 04:38 Hemoglobin C Crystals Not Reportable 06/25/19 04:38 Schistocytes Not Reportable 06/25/19 04:38 Malaria parasites Not Reportable 06/25/19 04:38 [place] Bodies Not Reportable 06/25/19 04:38 Hem Pathologist Commnt No 06/25/19 04:38 PT 13.0 Sec. (12.2-14.9) 06/11/19 18:03 INR 0.97 (0.87-1.13) 06/11/19 18:03 D-Dimer 1177.30 ng/mlDDU (0-234) H 06/19/19 14:14 Heparin Anti-Xa, Unfract Negative (Negative) 06/17/19 22:48 ABG pH 7.440 pH Units (7.350-7.450) 06/25/19 04:37 ABG pCO2 49.8 mm Hg 06/25/19 04:37 ABG pO2 62.7 mm Hg (80.0-90.0) L 06/25/19 04:37 ABG HCO3 33.0 mmol/L (20.0-26.0) H 06/25/19 04:37 ABG O2 Saturation 91.8 % (95.0-99.0) L 06/25/19 04:37 ABG O2 Content 12.7 (0.0-44) 06/25/19 04:37 ABG Base Excess 7.8 mmol/L (-2.0-3.0) H 06/25/19 04:37 ABG Hemoglobin 10.0 gm/dl (12.0-16.0) L 06/25/19 04:37 ABG Carboxyhemoglobin 1.4 % (0.0-5.0) 06/25/19 04:37 ABG Methemoglobin 0.3 % (0.0-1.5) 06/25/19 04:37 Oxyhemoglobin 90.2 % (95.0-99.0) L 06/25/19 04:37 FiO2 40 % 06/25/19 04:37 Sodium 137 mmol/L (137-145) 06/25/19 04:38 Potassium 4.8 mmol/L (3.6-5.0) 06/25/19 04:38 Chloride 95.4 mmol/L (98-107) L 06/25/19 04:38 Carbon Dioxide 31 mmol/L (22-30) H 06/25/19 04:38 Anion Gap 15 mmol/L 06/25/19 04:38 BUN 22 mg/dL (7-17) H 06/25/19 04:38 Creatinine 0.3 mg/dL (0.7-1.2) L 06/25/19 04:38 Estimated GFR > 60 ml/min 06/25/19 04:38 BUN/Creatinine Ratio 73 % 06/25/19 04:38 Glucose 126 mg/dL (65-100) H 06/25/19 04:38 POC Glucose 155 (70-105) H 06/26/19 05:22 Calcium 8.9 mg/dL (8.4-10.2) 06/25/19 04:38 Phosphorus 4.50 mg/dL (2.5-4.5) 06/15/19 05:08 Magnesium 2.20 mg/dL (1.7-2.3) 06/25/19 04:38 Ferritin 43.6 ng/mL (13.0-400.0) 06/19/19 14:14 Total Bilirubin 0.30 mg/dL (0.1-1.2) 06/11/19 18:03 AST 14 units/L (5-40) 06/11/19 18:03 ALT 8 units/L (7-56) 06/11/19 18:03 Alkaline Phosphatase 85 units/L (35-129) 06/11/19 18:03 Lactate Dehydrogenase 290 units/L (91-180) H 06/19/19 14:14 Total Creatine Kinase 74 units/L (30-135) 06/12/19 05:09 CK-MB (CK-2) 4.0 ng/mL (0.0-4.0) 06/12/19 05:09 CK-MB (CK-2) Rel Index 5.4 (0-4) H 06/12/19 05:09 Troponin T < 0.010 ng/mL (0.00-0.029) 06/12/19 05:09 C-Reactive Protein 0.10 mg/dL (0.00-1.30) 06/19/19 14:14 Total Protein 6.4 g/dL (6.3-8.2) 06/11/19 18:03 Albumin 3.5 g/dL (3.9-5) L 06/11/19 18:03 Albumin/Globulin Ratio 1.2 % 06/11/19 18:03 Procalcitonin < 0.05 ng/mL (<0.15) 06/19/19 14:14 Urine Color Yellow (Yellow) 06/19/19 12:40 Urine Turbidity Clear (Clear) 06/19/19 12:40 Urine pH 5.0 (5.0-7.0) 06/19/19 12:40 Ur Specific [place] 1.032 (1.003-1.030) H 06/19/19 12:40 Urine Protein 30 mg/dl mg/dL (Negative) 06/19/19 12:40 Urine Glucose (UA) Neg mg/dL (Negative) 06/19/19 12:40 Urine Ketones Neg mg/dL (Negative) 06/19/19 12:40 Urine Blood Sm (Negative) 06/19/19 12:40 Urine Nitrite Neg (Negative) 06/19/19 12:40 Urine Bilirubin Neg (Negative) 06/19/19 12:40 Urine Urobilinogen < 2.0 mg/dL (<2.0) 06/19/19 12:40 Ur Leukocyte Esterase Neg (Negative) 06/19/19 12:40 Urine WBC (Auto) 4.0 /HPF (0.0-6.0) 06/19/19 12:40 Urine RBC (Auto) 44.0 /HPF (0.0-6.0) 06/19/19 12:40 Urine Bacteria (Auto) 1+ /HPF (Negative) 06/19/19 12:40 Hyaline Casts 15 /LPF 06/19/19 12:40 Urine Mucus Few /HPF 06/19/19 12:40 Urine Yeast (Budding) Few /HPF 06/12/19 02:04 Digoxin 0.5 ng/mL (0.9-2.0) L 06/24/19 04:41 Salicylates 1.0 mg/dL (2.8-20.0) L 06/11/19 18:03 Acetaminophen < 5.0 ug/mL (10.0-30.0) L 06/11/19 18:03 Heparin-induced Plt Ab Negative (Negative) 06/17/19 22:48 UF Heparin High Dose 3 % Release 06/17/19 22:48 ESSIE UFH Low Dose 0.1 2 % Release 06/17/19 22:48 ESSIE UFH Low Dose 0.5 1 % Release 06/17/19 22:48 Coronavirus (PCR) Negative (Negative) 06/19/19 10:33 Blood Type O POSITIVE 06/19/19 10:08 Antibody Screen Negative 06/19/19 10:08 [place]/IV: Voiding Method Indwelling Catheter IV Catheter Type [Right Foot] INT / Saline Lock IV Catheter Type [Right Upper INT / Saline Lock arm] IV Catheter Type [Left Peripheral IV Antecubital] IV Catheter Type [Right Wrist] Peripheral IV IV Catheter Type [Right Hand] Peripheral IV Active Medications - Current Medications Current Medications: Generic Name Dose Route Start Last Admin Trade Name Freq PRN Reason Stop Dose Admin Acetaminophen 650 mg 06/11/19 22:48 06/20/19 08:03 Tylenol PO 650 mg Q4H PRN Administration Pain MILD(1-3)/Fever >100.5/PRAJAPATI Albuterol 2.5 mg 06/14/19 08:20 Proventil IH Q4HRT PRN Shortness Of Breath Albuterol/Ipratropium 1 ampul 06/14/19 14:00 06/26/19 08:35 Duoneb *Not For Prn Use* IH 1 ampul TIDRT DOMINICK Administration Alprazolam 0.25 mg 06/13/19 10:23 06/22/19 09:00 Xanax PO 0.25 mg Q8H PRN Administration Anxiety Amiodarone HCl 100 mg 06/22/19 10:00 06/25/19 10:24 Cordarone PO 100 mg QDAY DOMINICK Administration Lipase/Protease/Amylase 1 each 06/13/19 17:52 Chicho Pereira 10,500 Unit FEEDTUBE PRN PRN For Clogged Feeding Tube Arformoterol Tartrate 15 mcg 06/14/19 20:00 06/26/19 08:35 Brovana Nebu IH 15 mcg Q12HRT DOMINICK Administration Budesonide 0.5 mg 06/14/19 20:00 06/26/19 08:35 Pulmicort IH 0.5 mg Q12HRT DOMINICK Administration Dextrose 50 ml 06/11/19 22:48 D50w (25gm) Syringe IV Q30MIN PRN Hypoglycemia Protocol Digoxin 0.125 mg 06/22/19 17:00 06/24/19 18:22 Lanoxin IV 0.125 mg Q48HR@1700 DOMINICK Administration Diltiazem HCl 30 mg 06/16/19 11:30 06/26/19 05:10 Cardizem PO 30 mg Q8HR DOMINICK Administration Docusate Sodium 100 mg 06/18/19 11:00 06/25/19 23:35 Colace PO 100 mg BID DOMINICK Administration Hydrophilic Ointment 1 applic 06/11/19 17:44 Vaseline Lip Therapy TP Q2HR PRN Dry Lips Fentanyl Citrate 2,000 mcg in 100 mls @ 3.742 mls/hr 06/11/19 18:00 06/26/19 08:31 Fentanyl Drip Premix IV 2 mcg/kg/hr TITR DOMINICK 7.484 mls/hr Administration Protocol 1 MCG/KG/HR Cefepime HCl 1 gm in 100 mls @ 200 mls/hr 06/14/19 14:00 06/26/19 05:09 Cefepime/Ns 1 Gm/100 Ml IV 06/28/19 06:29 200 mls/hr Q8HR DOMINICK Administration Protocol Insulin Human Lispro 0 unit 06/12/19 00:00 06/26/19 05:12 Humalog SUB-Q 2 unit Q6HR DOMINICK Administration Protocol Lansoprazole 30 mg 06/13/19 11:00 06/25/19 10:24 Prevacid Solutab FEEDTUBE 30 mg QDAY DOMINICK Administration Lorazepam 2 mg 06/21/19 14:45 06/23/19 21:42 Ativan IV 2 mg Q6H PRN Administration Agitation Magnesium Hydroxide 30 ml 06/22/19 09:51 Milk Of Magnesia PO QDAY PRN Constipation Methylprednisolone Sodium Succinate 40 mg 06/23/19 12:00 06/26/19 05:10 Solu-Medrol IV 40 mg Q6HR DOMINICK Administration Metoprolol Tartrate 2.5 mg 06/19/19 11:11 06/19/19 11:48 Metoprolol IV 2.5 mg Q4H PRN Administration HR>130 Multi-Ingred Cream/Lotion/Oil/Oint 1 applic 06/11/19 17:44 Artificial Tears Ophth Oint OU Q4HR PRN Dry Eye(s) Ondansetron HCl 4 mg 06/11/19 22:48 Zofran IV Q8H PRN Nausea And Vomiting Polyethylene Glycol 17 gm 06/20/19 14:00 06/21/19 16:05 Miralax 3350 PO 17 gm BID PRN Administration Constipation Quetiapine Fumarate 300 mg 06/13/19 11:00 06/25/19 23:35 Seroquel PO 300 mg BID DOMINICK Administration Simple Syrup 15 ml 06/13/19 17:52 Simple Syrup FEEDTUBE PRN PRN Hypoglycemia Simple Syrup 30 ml 06/13/19 17:52 Simple Syrup FEEDTUBE PRN PRN Hypoglycemia Sodium Bicarbonate 325 mg 06/13/19 17:52 Sodium Bicarbonate FEEDTUBE PRN PRN For Clogged Feeding Tube Sodium Chloride 10 ml 06/12/19 10:00 06/25/19 23:35 Sodium Chloride Flush Syringe 10 Ml IV 10 ml BID DOMINICK Administration Sodium Chloride 10 ml 06/11/19 22:48 06/18/19 21:06 Sodium Chloride Flush Syringe 10 Ml IV 10 ml PRN PRN Administration LINE FLUSH Venlafaxine HCl 75 mg 06/13/19 14:00 06/25/19 23:37 Effexor PO 75 mg TID DOMINICK Administration Nutrition/Malnutrition Assess - Dietary Evaluation Nutrition/Malnutrition Findings: Nutrition Notes Start: 06/12/19 11:05 Freq: Status: Active Protocol: Document 05/08/20 13:25 LM (Rec: 06/25/19 13:28 LM [email or web address]) Nutrition Notes Initial or Follow up Reassessment Current Diagnosis COPD,Coronary Artery Disease, Hypertension,Heart Failure, Respiratory Failure Other Pertinent Diagnosis COPD exacerbation Current Diet TF - Promote at 60ml/hr Labs/Tests reviewed Pertinent Medications reviewed Height 5 ft Weight 76.204 kg [place] Body Weight (kg) 45.45 BMI 32.8 Weight change and time frame wt change noted Subjective/Other Information TF running at goal and pt is tolerating. Percent of energy/protein needs met: 96%/99% Burn Absent Trauma Absent Current % PO Negligible Minimum of two criteria No #1 Nutrition Diagnosis Inadequate oral intake Diagnosis Progress(for reassessment Continues documentation) Is patient on ventilator? Yes Is Patient Ambulatory and/or Out of Bed No REE-([place] Je[place]-confined to bed) 1503.180 Calculation Used for Recommendations [place] Je[place] Additional Notes Pro needs 2g/kg IBW: 91g/day 1ml/kcal Nutrition Intervention Change Diet Order: Continue TF Nutrition Support: Promote 1.0 at 60ml/hr Flush 50ml q4h Kcal 1,440 Protein (gm) 90 Fluid (mL) 1,208 Goal #1 TF tolerance Goal #2 Meet at least 75% of energy and protein needs Anticipated Discharge Needs: Unable to identify at this time Follow-Up By: 06/29/19 Additional Comments F/U for TF tolerance, wt
[2019-06-26] MEDS: VENLAFAXINE 75 MG TAB PO SCH ×3 (08:50→21:49)
[2019-06-26] MEDS: QUEtiapine 100 MG TAB PO SCH ×2 (09:04→21:48)
[2019-06-26] MEDS: DOCUSATE SODIUM 100 MG/10 ML ORAL LIQD PO SCH ×2 (09:04→21:48)
[2019-06-26] MEDS: LANSOPRAZOLE 30 MG SOLUTAB FEEDTUBE SCH (09:04)
[2019-06-26] MEDS: AMIODARONE 200 MG TAB PO SCH (09:05)
--- NOTE | 2019-06-26 10:57 | Progress Note ---
Assessment and Plan Cultures: Blood culture 06/11/2019 no growth Sputum culture 06/11/2019 pansensitive Pseudomonas Sputum culture 06/19/2019 Pseudomonas A/P: 59-year-old female past medical history GERD, tobacco abuse, COPD, CAD admitted to the hospital with COPD exacerbation admitted with acute hypoxic respiratory failure #Pseudomonas pneumonia: patient has been intubated for some time, and previously had Pseudomonas pneumonia. May have some colonization of the tube. Regardless, would continue to treat with Cefepime, and may need up to 14 days treatment for a VAP. #COPD with acute respiratory failure: on the vent. #Tobacco abuse Recs: -Complete total 14 days of Cefepime (ending 06/28/2019) -WBC jump may be secondary to steroids (started on 06/23/2019) Raul Gupta MD, FACP [facility] C: [phone] O: [phone] F: [phone] Subjective Date of service: 06/26/19 Principal diagnosis: Ac and ch hypoxic & hypercapnic resp failure; AE-COPD; Tobacco use disorder Interval history: No fever. Remains intubated, on the vent. Objective - Exam Narrative Exam: Physical Exam: Constitutional: sedated, intubated, on the vent Head, Ears, Nose: Normocephalic, atraumatic. External ears, nose normal Eyes: Conjunctivae/corneas clear. No icterus. No ptosis. Neck: intubated Oral: intubated Cardiovascular: S1, S2 + Respiratory: AE fair bilaterally and equal GI: Soft, bowel sounds + Musculoskeletal: No pedal edema, no cyanosis. Skin: No rash or abscess Hem/Lymphatic: No palpable cervical or supraclavicular nodes. No lymphangitis Psych: no agitation Neurological: sedated, intubated, on the vent, exam limited - Constitutional Vitals: Vital Signs Temp Pulse Resp BP Pulse Ox 98.7 F 68 11 L 147/74 100 06/26/19 08:00 06/26/19 09:10 06/26/19 09:10 06/26/19 09:10 06/26/19 09:10 Temperature -Last 24 Hours Temperature 98.7 F Temperature 98.9 F Temperature 99 F Temperature 99.3 F Temperature 98.4 F Temperature 98.0 F - Labs CBC & Chem 7: 05/08/20 04:38 06/25/19 04:38 Labs: Abnormal lab results 06/25/19 06/25/19 06/26/19 Range/Units 12:45 16:57 00:30 POC Glucose 169 H 130 H 167 H (70-105) 06/26/19 Range/Units 05:22 POC Glucose 155 H (70-105)
--- NOTE | 2019-06-26 11:44 | Progress Note ---
Assessment and Plan Acute and chronic hypoxic and hypercapnic respiratory failure on MVS Acute exacerbation of COPD Pseudomonas pneumonia Thrombocytopenia History of coronary artery disease/CHF History of depression; Obesity; BMI 32.2 Chronic narcotic dependence Tobacco use disorder/Nicotine dependence Daily SBT as tolerated and per protocol CXR, ABG prn Continue all current care -Continue with MVS, Lung protective strategies, monitor airway pressures -Adjust minute ventilation as indicated for better gas exchange -VAP bundle addressed -Aspiration precautions, HOB>40 -Daily assessment for readiness for weaning; SAT and SBT - Fentanyl and Lorazepam infusions titrate to RASS -1 -Antibiotics for severe AE-COPD -Steroids with slow taper -Bronchodilators with pulmonary hygiene -Stress ulcer prophylaxis, VTE prophylaxis -Continue enteric nutritional support -Continue to monitor glycemic control, with target blood glucose 140-180 mg/dL while critically ill. -Avoid hypoglycemia - Wean supplemental oxygen for target O2 sat's > 90% -ABG and CXR in am - Avoid benzodiazepines to reduce the possibility of delirium - prn analgesia per CPOT score - Mobility protocol , off loading and skin assessment per protocol for pressure ulcer prevention - Monitor hemodynamics closely -Nicotine withdrawal precautions -Smoking cessation counselling once she is extubated and able to participate in the discussion -Chronic home medications as indicated - continue other care per attending / other consultants CONDITION: CRITICAL PROGNOSIS: GUARDED CODE STATUS: FULL CODE Life threatening condition from acute and chronic hypoxic-hypercapnic respiratory failure with ventilator dependency Mortality/Morbidity- High Complexity of decision making- High The high probability of a clinically significant, sudden or life-threatening deterioration of the [respiratory, ] system(s) required my full and direct attention, intervention and personal management. The aggregate critical care time was [31] minutes without overlap. Time includes spent on; [x] Data Review and interpretation [x] Patient assessment and monitoring of vital signs [x] Documentation [x] Medication orders and management Subjective Date of service: 06/26/19 Principal diagnosis: Ac and ch hypoxic & hypercapnic resp failure; AE-COPD; Tobacco use disorder Interval history: Patient is seen today for: Ac and ch hypoxic hypercapnic resp failure; AE-COPD; Tobacco use disorder/Nicotine dependence; Hypernatremia; HTN (hypotensive at presentation 0; Chronic narcotic dependence ; Chronic back pain; Anxiety disorder Today 06/26/2019- no new issues. Seen and examined at bedside; 24-hour events reviewed; nursing and respiratory care staff consulted; no adverse overnight events reported to me; laying in bed; AMS is persistent; Remains on full MVS, no reported tachyarrythmias, on Fentanyl. No fevers. Tolerating some PSV Objective Vital Signs - 12hr 06/25/19 06/26/19 06/26/19 23:45 00:00 00:01 Temperature 99 F Pulse Rate 73 71 Pulse Rate [ Bilateral] Respiratory 12 15 Rate Respiratory Rate [Bilateral ] Blood Pressure 111/53 123/54 O2 Sat by Pulse 86 85 Oximetry 06/26/19 06/26/19 06/26/19 00:15 00:31 00:45 Temperature Pulse Rate 121 H 122 H 116 H Pulse Rate [ Bilateral] Respiratory 19 16 15 Rate Respiratory Rate [Bilateral ] Blood Pressure 123/54 134/75 134/75 O2 Sat by Pulse 92 93 93 Oximetry 06/26/19 06/26/19 06/26/19 01:01 01:15 01:31 Temperature Pulse Rate 110 H 114 H 109 H Pulse Rate [ Bilateral] Respiratory 19 20 13 Rate Respiratory Rate [Bilateral ] Blood Pressure 135/73 134/75 129/75 O2 Sat by Pulse 92 94 93 Oximetry 06/26/19 06/26/19 06/26/19 01:45 02:01 02:15 Temperature Pulse Rate 120 H 92 H 81 Pulse Rate [ Bilateral] Respiratory 23 17 16 Rate Respiratory Rate [Bilateral ] Blood Pressure 129/75 112/64 112/64 O2 Sat by Pulse 93 92 93 Oximetry 06/26/19 06/26/19 06/26/19 02:30 02:45 03:00 Temperature Pulse Rate 76 73 67 Pulse Rate [ Bilateral] Respiratory 16 16 16 Rate Respiratory Rate [Bilateral ] Blood Pressure 105/59 105/59 106/55 O2 Sat by Pulse 93 91 90 Oximetry 06/26/19 06/26/19 06/26/19 03:15 03:30 03:45 Temperature Pulse Rate 65 63 65 Pulse Rate [ Bilateral] Respiratory 16 16 16 Rate Respiratory Rate [Bilateral ] Blood Pressure 106/55 106/55 106/55 O2 Sat by Pulse 89 89 90 Oximetry 06/26/19 06/26/19 06/26/19 04:00 04:01 04:07 Temperature 98.9 F Pulse Rate 62 68 65 Pulse Rate [ Bilateral] Respiratory 16 Rate Respiratory Rate [Bilateral ] Blood Pressure 108/55 108/55 O2 Sat by Pulse 96 93 92 Oximetry 06/26/19 06/26/19 06/26/19 04:15 04:31 04:45 Temperature Pulse Rate 66 62 60 Pulse Rate [ Bilateral] Respiratory 16 15 16 Rate Respiratory Rate [Bilateral ] Blood Pressure 106/54 111/54 111/54 O2 Sat by Pulse 88 86 86 Oximetry 06/26/19 06/26/19 06/26/19 05:01 05:10 05:15 Temperature Pulse Rate 65 70 98 H Pulse Rate [ Bilateral] Respiratory 16 12 Rate Respiratory Rate [Bilateral ] Blood Pressure 111/54 111/54 111/54 O2 Sat by Pulse 96 95 Oximetry 06/26/19 06/26/19 06/26/19 05:31 05:45 06:01 Temperature Pulse Rate 70 70 68 Pulse Rate [ Bilateral] Respiratory 16 16 16 Rate Respiratory Rate [Bilateral ] Blood Pressure 120/59 120/59 112/56 O2 Sat by Pulse 94 92 93 Oximetry 06/26/19 06/26/19 06/26/19 06:15 06:31 06:45 Temperature Pulse Rate 66 63 61 Pulse Rate [ Bilateral] Respiratory 16 16 16 Rate Respiratory Rate [Bilateral ] Blood Pressure 112/56 118/58 118/58 O2 Sat by Pulse 93 94 94 Oximetry 06/26/19 06/26/19 06/26/19 07:01 07:31 08:00 Temperature 98.7 F Pulse Rate 60 58 L 90 Pulse Rate [ Bilateral] Respiratory 14 16 Rate Respiratory Rate [Bilateral ] Blood Pressure 117/62 127/66 O2 Sat by Pulse 93 97 96 Oximetry 06/26/19 06/26/19 06/26/19 08:01 08:30 08:31 Temperature Pulse Rate 57 L 61 61 Pulse Rate [ Bilateral] Respiratory 16 15 Rate Respiratory Rate [Bilateral ] Blood Pressure 121/63 151/71 151/71 O2 Sat by Pulse 94 100 100 Oximetry 06/26/19 06/26/19 06/26/19 08:53 09:01 09:10 Temperature Pulse Rate 94 H 68 Pulse Rate [ 61 Bilateral] Respiratory 15 11 L Rate Respiratory 21 Rate [Bilateral ] Blood Pressure 147/74 147/74 O2 Sat by Pulse 99 100 Oximetry Constitutional: no acute distress, other (elderly looking obese CF, normocephalic on MVS without signidficant dyssynchrony) Eyes: non-icteric ENT: oropharynx moist, other (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) Neck: supple, no lymphadenopathy, no JVD Effort: mildly labored Ascultation: Bilateral: diminished breath sounds, rhonchi Percussion: Bilateral: not dull Cardiovascular: regular rate and rhythm Gastrointestinal: normoactive bowel sounds, soft, non-tender, non-distended Integumentary: normal Extremities: no cyanosis, no edema, pulses normal, no ischemia or petechiae Neurologic: non-focal exam (grossly), pupils equal and round, unable to assess Psychiatric: other (Unable to assess re: AMS) CBC and BMP: 06/27/19 13:41 06/27/19 13:41 ABG, PT/INR, D-dimer: ABG ABG pH 7.440 pH Units (7.350-7.450) 06/25/19 04:37 ABG pCO2 49.8 mm Hg 06/25/19 04:37 ABG pO2 62.7 mm Hg (80.0-90.0) L 06/25/19 04:37 ABG O2 Saturation 91.8 % (95.0-99.0) L 06/25/19 04:37 PT/INR, D-dimer PT 13.0 Sec. (12.2-14.9) 06/11/19 18:03 INR 0.97 (0.87-1.13) 06/11/19 18:03 D-Dimer 1177.30 ng/mlDDU (0-234) H 06/19/19 14:14 Abnormal lab findings: Abnormal Labs 06/11/19 06/11/19 06/11/19 18:03 18:03 18:03 WBC Hgb MCH 25 L RDW 19.4 H Plt Count 124 L [place] % (Auto) 10.3 H Lymph # 1.1 L Seg Neutrophils % 74.4 H Seg Neuts % (Manual) Lymphocytes % (Manual) Seg Neutrophils # Man Lymphocytes # (Manual) Monocytes # (Manual) D-Dimer ABG pH ABG pO2 ABG HCO3 ABG O2 Saturation ABG Base Excess ABG Hemoglobin Oxyhemoglobin Sodium 146 H Potassium Chloride Carbon Dioxide BUN 21 H Creatinine 0.4 L Glucose POC Glucose Calcium Magnesium 2.70 H Lactate Dehydrogenase CK-MB (CK-2) CK-MB (CK-2) Rel Index Albumin 3.5 L Ur Specific [place] Urine WBC (Auto) Digoxin Salicylates 1.0 L Acetaminophen 06/11/19 06/11/19 06/11/19 18:03 18:59 23:22 WBC Hgb MCH RDW Plt Count [place] % (Auto) Lymph # Seg Neutrophils % Seg Neuts % (Manual) Lymphocytes % (Manual) Seg Neutrophils # Man Lymphocytes # (Manual) Monocytes # (Manual) D-Dimer ABG pH 7.340 L ABG pO2 76.0 L ABG HCO3 34.6 H ABG O2 Saturation ABG Base Excess 7.1 H ABG Hemoglobin 10.9 L Oxyhemoglobin 91.6 L Sodium Potassium Chloride Carbon Dioxide BUN Creatinine Glucose POC Glucose Calcium Magnesium Lactate Dehydrogenase CK-MB (CK-2) 5.5 H CK-MB (CK-2) Rel Index 5.5 H Albumin Ur Specific [place] Urine WBC (Auto) Digoxin Salicylates Acetaminophen < 5.0 L 06/12/19 06/12/19 06/12/19 00:29 02:04 04:20 WBC Hgb MCH RDW Plt Count [place] % (Auto) Lymph # Seg Neutrophils % Seg Neuts % (Manual) Lymphocytes % (Manual) Seg Neutrophils # Man Lymphocytes # (Manual) Monocytes # (Manual) D-Dimer ABG pH 7.313 L ABG pO2 75.3 L ABG HCO3 29.9 H ABG O2 Saturation 94.3 L ABG Base Excess ABG Hemoglobin 10.8 L Oxyhemoglobin 92.0 L Sodium Potassium Chloride Carbon Dioxide BUN Creatinine Glucose POC Glucose 107 H Calcium Magnesium Lactate Dehydrogenase CK-MB (CK-2) CK-MB (CK-2) Rel Index Albumin Ur Specific [place] Urine WBC (Auto) 30.0 H Digoxin Salicylates Acetaminophen 06/12/19 06/12/19 06/12/19 05:09 05:09 05:09 WBC Hgb MCH 25 L RDW 19.4 H Plt Count 114 L [place] % (Auto) Lymph # Seg Neutrophils % Seg Neuts % (Manual) 91.0 H Lymphocytes % (Manual) 7.0 L Seg Neutrophils # Man Lymphocytes # (Manual) 0.4 L Monocytes # (Manual) D-Dimer ABG pH ABG pO2 ABG HCO3 ABG O2 Saturation ABG Base Excess ABG Hemoglobin Oxyhemoglobin Sodium 147 H Potassium Chloride 107.4 H Carbon Dioxide BUN 19 H Creatinine 0.4 L Glucose 110 H POC Glucose Calcium 8.2 L Magnesium Lactate Dehydrogenase CK-MB (CK-2) CK-MB (CK-2) Rel Index 5.4 H Albumin Ur Specific [place] Urine WBC (Auto) Digoxin Salicylates Acetaminophen 06/12/19 06/12/19 06/13/19 06:42 23:21 04:14 WBC Hgb MCH RDW Plt Count [place] % (Auto) Lymph # Seg Neutrophils % Seg Neuts % (Manual) Lymphocytes % (Manual) Seg Neutrophils # Man Lymphocytes # (Manual) Monocytes # (Manual) D-Dimer ABG pH ABG pO2 62.6 L ABG HCO3 29.6 H ABG O2 Saturation 91.0 L ABG Base Excess ABG Hemoglobin 10.3 L Oxyhemoglobin 89.0 L Sodium Potassium Chloride Carbon Dioxide BUN Creatinine Glucose POC Glucose 108 H 106 H Calcium Magnesium Lactate Dehydrogenase CK-MB (CK-2) CK-MB (CK-2) Rel Index Albumin Ur Specific [place] Urine WBC (Auto) Digoxin Salicylates Acetaminophen 06/13/19 06/13/19 06/13/19 04:54 04:54 12:20 WBC Hgb MCH 25 L RDW 19.2 H Plt Count 119 L [place] % (Auto) Lymph # Seg Neutrophils % Seg Neuts % (Manual) 95.0 H Lymphocytes % (Manual) 2.0 L Seg Neutrophils # Man 9.1 H Lymphocytes # (Manual) 0.2 L Monocytes # (Manual) D-Dimer ABG pH ABG pO2 ABG HCO3 ABG O2 Saturation ABG Base Excess ABG Hemoglobin Oxyhemoglobin Sodium 149 H Potassium Chloride 111.4 H Carbon Dioxide BUN 26 H Creatinine 0.5 L Glucose 107 H POC Glucose 125 H Calcium Magnesium Lactate Dehydrogenase CK-MB (CK-2) CK-MB (CK-2) Rel Index Albumin Ur Specific [place] Urine WBC (Auto) Digoxin Salicylates Acetaminophen 06/13/19 06/14/19 06/14/19 17:25 03:44 04:55 WBC Hgb MCH RDW Plt Count [place] % (Auto) Lymph # Seg Neutrophils % Seg Neuts % (Manual) Lymphocytes % (Manual) Seg Neutrophils # Man Lymphocytes # (Manual) Monocytes # (Manual) D-Dimer ABG pH ABG pO2 58.9 L ABG HCO3 29.5 H ABG O2 Saturation 88.7 L ABG Base Excess ABG Hemoglobin 10.2 L Oxyhemoglobin 86.7 L Sodium 150 H Potassium Chloride 110.4 H Carbon Dioxide BUN 20 H Creatinine 0.4 L Glucose 105 H POC Glucose 128 H Calcium Magnesium Lactate Dehydrogenase CK-MB (CK-2) CK-MB (CK-2) Rel Index Albumin Ur Specific [place] Urine WBC (Auto) Digoxin Salicylates Acetaminophen 06/14/19 06/14/19 06/14/19 05:37 11:58 21:00 WBC Hgb MCH RDW Plt Count [place] % (Auto) Lymph # Seg Neutrophils % Seg Neuts % (Manual) Lymphocytes % (Manual) Seg Neutrophils # Man Lymphocytes # (Manual) Monocytes # (Manual) D-Dimer ABG pH 7.321 L ABG pO2 60.0 L ABG HCO3 31.4 H ABG O2 Saturation 87.3 L ABG Base Excess 4.1 H ABG Hemoglobin 10.6 L Oxyhemoglobin 84.8 L Sodium Potassium Chloride Carbon Dioxide BUN Creatinine Glucose POC Glucose 111 H 116 H Calcium Magnesium Lactate Dehydrogenase CK-MB (CK-2) CK-MB (CK-2) Rel Index Albumin Ur Specific [place] Urine WBC (Auto) Digoxin Salicylates Acetaminophen 06/15/19 06/15/19 06/15/19 00:22 03:25 05:08 WBC Hgb MCH RDW Plt Count [place] % (Auto) Lymph # Seg Neutrophils % Seg Neuts % (Manual) Lymphocytes % (Manual) Seg Neutrophils # Man Lymphocytes # (Manual) Monocytes # (Manual) D-Dimer ABG pH 7.317 L ABG pO2 ABG HCO3 31.5 H ABG O2 Saturation ABG Base Excess 4.1 H ABG Hemoglobin 10.4 L Oxyhemoglobin 94.1 L Sodium Potassium Chloride Carbon Dioxide 31 H BUN 23 H Creatinine 0.3 L Glucose 120 H POC Glucose 108 H Calcium Magnesium Lactate Dehydrogenase CK-MB (CK-2) CK-MB (CK-2) Rel Index Albumin Ur Specific [place] Urine WBC (Auto) Digoxin Salicylates Acetaminophen 06/15/19 06/15/19 06/15/19 05:24 11:41 17:38 WBC Hgb MCH RDW Plt Count [place] % (Auto) Lymph # Seg Neutrophils % Seg Neuts % (Manual) Lymphocytes % (Manual) Seg Neutrophils # Man Lymphocytes # (Manual) Monocytes # (Manual) D-Dimer ABG pH ABG pO2 ABG HCO3 ABG O2 Saturation ABG Base Excess ABG Hemoglobin Oxyhemoglobin Sodium Potassium Chloride Carbon Dioxide BUN Creatinine Glucose POC Glucose 111 H 154 H 115 H Calcium Magnesium Lactate Dehydrogenase CK-MB (CK-2) CK-MB (CK-2) Rel Index Albumin Ur Specific [place] Urine WBC (Auto) Digoxin Salicylates Acetaminophen 06/15/19 06/16/19 06/16/19 23:31 03:40 05:18 WBC Hgb MCH RDW Plt Count [place] % (Auto) Lymph # Seg Neutrophils % Seg Neuts % (Manual) Lymphocytes % (Manual) Seg Neutrophils # Man Lymphocytes # (Manual) Monocytes # (Manual) D-Dimer ABG pH 7.313 L ABG pO2 96.4 H ABG HCO3 35.2 H ABG O2 Saturation ABG Base Excess 7.2 H ABG Hemoglobin 10.5 L Oxyhemoglobin 94.9 L Sodium Potassium Chloride Carbon Dioxide BUN Creatinine Glucose POC Glucose 161 H 158 H Calcium Magnesium Lactate Dehydrogenase CK-MB (CK-2) CK-MB (CK-2) Rel Index Albumin Ur Specific [place] Urine WBC (Auto) Digoxin Salicylates Acetaminophen 06/16/19 06/16/19 06/16/19 05:45 05:45 12:06 WBC 12.1 H Hgb MCH 25 L RDW 18.7 H Plt Count 93 L [place] % (Auto) Lymph # Seg Neutrophils % Seg Neuts % (Manual) 97.0 H Lymphocytes % (Manual) 0 L Seg Neutrophils # Man 11.7 H Lymphocytes # (Manual) 0.0 L Monocytes # (Manual) D-Dimer ABG pH ABG pO2 ABG HCO3 ABG O2 Saturation ABG Base Excess ABG Hemoglobin Oxyhemoglobin Sodium Potassium Chloride Carbon Dioxide 33 H BUN 25 H Creatinine 0.3 L Glucose 165 H POC Glucose 178 H Calcium Magnesium Lactate Dehydrogenase CK-MB (CK-2) CK-MB (CK-2) Rel Index Albumin Ur Specific [place] Urine WBC (Auto) Digoxin Salicylates Acetaminophen 06/16/19 06/16/19 06/17/19 17:55 23:42 03:35 WBC Hgb MCH RDW Plt Count [place] % (Auto) Lymph # Seg Neutrophils % Seg Neuts % (Manual) Lymphocytes % (Manual) Seg Neutrophils # Man Lymphocytes # (Manual) Monocytes # (Manual) D-Dimer ABG pH ABG pO2 73.2 L ABG HCO3 35.2 H ABG O2 Saturation 94.5 L ABG Base Excess 8.8 H ABG Hemoglobin 10.7 L Oxyhemoglobin 92.6 L Sodium Potassium Chloride Carbon Dioxide BUN Creatinine Glucose POC Glucose 180 H 160 H Calcium Magnesium Lactate Dehydrogenase CK-MB (CK-2) CK-MB (CK-2) Rel Index Albumin Ur Specific [place] Urine WBC (Auto) Digoxin Salicylates Acetaminophen 06/17/19 06/17/19 06/17/19 04:57 09:45 11:59 WBC 11.7 H Hgb MCH 25 L RDW 18.2 H Plt Count 79 L [place] % (Auto) Lymph # Seg Neutrophils % Seg Neuts % (Manual) 96.0 H Lymphocytes % (Manual) 3.0 L Seg Neutrophils # Man 11.2 H Lymphocytes # (Manual) 0.4 L Monocytes # (Manual) D-Dimer ABG pH ABG pO2 ABG HCO3 ABG O2 Saturation ABG Base Excess ABG Hemoglobin Oxyhemoglobin Sodium Potassium Chloride Carbon Dioxide 34 H BUN 31 H Creatinine 0.3 L Glucose 153 H POC Glucose 163 H Calcium Magnesium Lactate Dehydrogenase CK-MB (CK-2) CK-MB (CK-2) Rel Index Albumin Ur Specific [place] Urine WBC (Auto) Digoxin Salicylates Acetaminophen 06/17/19 06/17/19 06/17/19 12:34 17:33 23:39 WBC Hgb MCH RDW Plt Count [place] % (Auto) Lymph # Seg Neutrophils % Seg Neuts % (Manual) Lymphocytes % (Manual) Seg Neutrophils # Man Lymphocytes # (Manual) Monocytes # (Manual) D-Dimer ABG pH ABG pO2 ABG HCO3 ABG O2 Saturation ABG Base Excess ABG Hemoglobin Oxyhemoglobin Sodium Potassium Chloride Carbon Dioxide BUN Creatinine Glucose POC Glucose 171 H 186 H 161 H Calcium Magnesium Lactate Dehydrogenase CK-MB (CK-2) CK-MB (CK-2) Rel Index Albumin Ur Specific [place] Urine WBC (Auto) Digoxin Salicylates Acetaminophen 06/18/19 06/18/19 06/18/19 04:25 05:23 05:23 WBC 13.2 H Hgb MCH 25 L RDW 18.3 H Plt Count 81 L [place] % (Auto) Lymph # Seg Neutrophils % Seg Neuts % (Manual) 96.0 H Lymphocytes % (Manual) 4.0 L Seg Neutrophils # Man 12.7 H Lymphocytes # (Manual) 0.5 L Monocytes # (Manual) D-Dimer ABG pH ABG pO2 72.9 L ABG HCO3 33.8 H ABG O2 Saturation 94.6 L ABG Base Excess 7.3 H ABG Hemoglobin 11.1 L Oxyhemoglobin 92.8 L Sodium Potassium Chloride Carbon Dioxide 34 H BUN 36 H Creatinine 0.3 L Glucose 162 H POC Glucose Calcium Magnesium Lactate Dehydrogenase CK-MB (CK-2) CK-MB (CK-2) Rel Index Albumin Ur Specific [place] Urine WBC (Auto) Digoxin Salicylates Acetaminophen 06/18/19 06/18/19 06/18/19 05:37 12:26 18:17 WBC Hgb MCH RDW Plt Count [place] % (Auto) Lymph # Seg Neutrophils % Seg Neuts % (Manual) Lymphocytes % (Manual) Seg Neutrophils # Man Lymphocytes # (Manual) Monocytes # (Manual) D-Dimer ABG pH ABG pO2 ABG HCO3 ABG O2 Saturation ABG Base Excess ABG Hemoglobin Oxyhemoglobin Sodium Potassium Chloride Carbon Dioxide BUN Creatinine Glucose POC Glucose 177 H 156 H 134 H Calcium Magnesium Lactate Dehydrogenase CK-MB (CK-2) CK-MB (CK-2) Rel Index Albumin Ur Specific [place] Urine WBC (Auto) Digoxin Salicylates Acetaminophen 06/18/19 06/19/19 06/19/19 23:51 05:58 12:12 WBC Hgb MCH RDW Plt Count [place] % (Auto) Lymph # Seg Neutrophils % Seg Neuts % (Manual) Lymphocytes % (Manual) Seg Neutrophils # Man Lymphocytes # (Manual) Monocytes # (Manual) D-Dimer ABG pH ABG pO2 ABG HCO3 ABG O2 Saturation ABG Base Excess ABG Hemoglobin Oxyhemoglobin Sodium Potassium Chloride Carbon Dioxide BUN Creatinine Glucose POC Glucose 153 H 143 H 186 H Calcium Magnesium Lactate Dehydrogenase CK-MB (CK-2) CK-MB (CK-2) Rel Index Albumin Ur Specific [place] Urine WBC (Auto) Digoxin Salicylates Acetaminophen 06/19/19 06/19/19 06/19/19 12:40 14:14 14:14 WBC Hgb MCH RDW Plt Count [place] % (Auto) Lymph # Seg Neutrophils % Seg Neuts % (Manual) Lymphocytes % (Manual) Seg Neutrophils # Man Lymphocytes # (Manual) Monocytes # (Manual) D-Dimer 1177.30 H ABG pH ABG pO2 ABG HCO3 ABG O2 Saturation ABG Base Excess ABG Hemoglobin Oxyhemoglobin Sodium Potassium Chloride Carbon Dioxide BUN Creatinine Glucose POC Glucose Calcium Magnesium Lactate Dehydrogenase 290 H CK-MB (CK-2) CK-MB (CK-2) Rel Index Albumin Ur Specific [place] 1.032 H Urine WBC (Auto) Digoxin Salicylates Acetaminophen 06/19/19 06/19/19 06/19/19 16:40 17:00 23:50 WBC Hgb MCH RDW Plt Count [place] % (Auto) Lymph # Seg Neutrophils % Seg Neuts % (Manual) Lymphocytes % (Manual) Seg Neutrophils # Man Lymphocytes # (Manual) Monocytes # (Manual) D-Dimer ABG pH ABG pO2 54.2 L ABG HCO3 32.1 H ABG O2 Saturation 87.8 L ABG Base Excess 6.3 H ABG Hemoglobin 11.2 L Oxyhemoglobin 85.9 L Sodium Potassium Chloride Carbon Dioxide BUN Creatinine Glucose POC Glucose 137 H 148 H Calcium Magnesium Lactate Dehydrogenase CK-MB (CK-2) CK-MB (CK-2) Rel Index Albumin Ur Specific [place] Urine WBC (Auto) Digoxin Salicylates Acetaminophen 06/20/19 06/20/19 06/20/19 05:14 05:30 05:40 WBC 16.4 H Hgb MCH 25 L RDW 18.3 H Plt Count 79 L [place] % (Auto) Lymph # Seg Neutrophils % Seg Neuts % (Manual) Lymphocytes % (Manual) Seg Neutrophils # Man Lymphocytes # (Manual) Monocytes # (Manual) D-Dimer ABG pH ABG pO2 63.4 L ABG HCO3 32.9 H ABG O2 Saturation 91.8 L ABG Base Excess 6.2 H ABG Hemoglobin 10.4 L Oxyhemoglobin 89.7 L Sodium Potassium Chloride Carbon Dioxide BUN Creatinine Glucose POC Glucose 164 H Calcium Magnesium Lactate Dehydrogenase CK-MB (CK-2) CK-MB (CK-2) Rel Index Albumin Ur Specific [place] Urine WBC (Auto) Digoxin Salicylates Acetaminophen 06/20/19 06/20/19 06/20/19 05:40 12:35 18:32 WBC Hgb MCH RDW Plt Count [place] % (Auto) Lymph # Seg Neutrophils % Seg Neuts % (Manual) Lymphocytes % (Manual) Seg Neutrophils # Man Lymphocytes # (Manual) Monocytes # (Manual) D-Dimer ABG pH ABG pO2 ABG HCO3 ABG O2 Saturation ABG Base Excess ABG Hemoglobin Oxyhemoglobin Sodium Potassium Chloride Carbon Dioxide 31 H BUN 25 H Creatinine 0.3 L Glucose 150 H POC Glucose 162 H 159 H Calcium Magnesium Lactate Dehydrogenase CK-MB (CK-2) CK-MB (CK-2) Rel Index Albumin Ur Specific [place] Urine WBC (Auto) Digoxin Salicylates Acetaminophen 06/21/19 06/21/19 06/21/19 00:12 04:58 04:58 WBC 13.9 H Hgb 9.7 L MCH 25 L RDW 17.9 H Plt Count 85 L [place] % (Auto) Lymph # Seg Neutrophils % Seg Neuts % (Manual) Lymphocytes % (Manual) Seg Neutrophils # Man Lymphocytes # (Manual) Monocytes # (Manual) D-Dimer ABG pH ABG pO2 ABG HCO3 ABG O2 Saturation ABG Base Excess ABG Hemoglobin Oxyhemoglobin Sodium Potassium Chloride Carbon Dioxide 31 H BUN 23 H Creatinine 0.3 L Glucose 142 H POC Glucose 144 H Calcium Magnesium Lactate Dehydrogenase CK-MB (CK-2) CK-MB (CK-2) Rel Index Albumin Ur Specific [place] Urine WBC (Auto) Digoxin Salicylates Acetaminophen 06/21/19 06/21/19 06/21/19 05:42 12:43 23:17 WBC Hgb MCH RDW Plt Count [place] % (Auto) Lymph # Seg Neutrophils % Seg Neuts % (Manual) Lymphocytes % (Manual) Seg Neutrophils # Man Lymphocytes # (Manual) Monocytes # (Manual) D-Dimer ABG pH ABG pO2 ABG HCO3 ABG O2 Saturation ABG Base Excess ABG Hemoglobin Oxyhemoglobin Sodium Potassium Chloride Carbon Dioxide BUN Creatinine Glucose POC Glucose 137 H 118 H 141 H Calcium Magnesium Lactate Dehydrogenase CK-MB (CK-2) CK-MB (CK-2) Rel Index Albumin Ur Specific [place] Urine WBC (Auto) Digoxin Salicylates Acetaminophen 06/22/19 06/22/19 06/22/19 05:28 12:11 18:27 WBC Hgb MCH RDW Plt Count [place] % (Auto) Lymph # Seg Neutrophils % Seg Neuts % (Manual) Lymphocytes % (Manual) Seg Neutrophils # Man Lymphocytes # (Manual) Monocytes # (Manual) D-Dimer ABG pH ABG pO2 ABG HCO3 ABG O2 Saturation ABG Base Excess ABG Hemoglobin Oxyhemoglobin Sodium Potassium Chloride Carbon Dioxide BUN Creatinine Glucose POC Glucose 144 H 138 H 169 H Calcium Magnesium Lactate Dehydrogenase CK-MB (CK-2) CK-MB (CK-2) Rel Index Albumin Ur Specific [place] Urine WBC (Auto) Digoxin Salicylates Acetaminophen 06/23/19 06/23/19 06/23/19 00:12 05:05 05:05 WBC 11.5 H Hgb MCH 25 L RDW 17.5 H Plt Count 98 L [place] % (Auto) Lymph # Seg Neutrophils % Seg Neuts % (Manual) 88.0 H Lymphocytes % (Manual) 4.0 L Seg Neutrophils # Man 10.1 H Lymphocytes # (Manual) 0.5 L Monocytes # (Manual) D-Dimer ABG pH ABG pO2 ABG HCO3 ABG O2 Saturation ABG Base Excess ABG Hemoglobin Oxyhemoglobin Sodium 133 L Potassium 5.3 H Chloride 95.5 L Carbon Dioxide BUN 24 H Creatinine 0.3 L Glucose 168 H POC Glucose 154 H Calcium Magnesium 2.60 H Lactate Dehydrogenase CK-MB (CK-2) CK-MB (CK-2) Rel Index Albumin Ur Specific [place] Urine WBC (Auto) Digoxin Salicylates Acetaminophen 06/23/19 06/23/19 06/23/19 05:15 08:50 12:00 WBC Hgb MCH RDW Plt Count [place] % (Auto) Lymph # Seg Neutrophils % Seg Neuts % (Manual) Lymphocytes % (Manual) Seg Neutrophils # Man Lymphocytes # (Manual) Monocytes # (Manual) D-Dimer ABG pH ABG pO2 56.9 L ABG HCO3 33.2 H ABG O2 Saturation 88.0 L ABG Base Excess 7.0 H ABG Hemoglobin 9.9 L Oxyhemoglobin 86.4 L Sodium Potassium Chloride Carbon Dioxide BUN Creatinine Glucose POC Glucose 174 H 168 H Calcium Magnesium Lactate Dehydrogenase CK-MB (CK-2) CK-MB (CK-2) Rel Index Albumin Ur Specific [place] Urine WBC (Auto) Digoxin Salicylates Acetaminophen 06/23/19 06/23/19 06/24/19 17:54 23:55 04:41 WBC Hgb MCH RDW Plt Count [place] % (Auto) Lymph # Seg Neutrophils % Seg Neuts % (Manual) Lymphocytes % (Manual) Seg Neutrophils # Man Lymphocytes # (Manual) Monocytes # (Manual) D-Dimer ABG pH ABG pO2 ABG HCO3 ABG O2 Saturation ABG Base Excess ABG Hemoglobin Oxyhemoglobin Sodium Potassium Chloride Carbon Dioxide BUN Creatinine Glucose POC Glucose 146 H 145 H Calcium Magnesium Lactate Dehydrogenase CK-MB (CK-2) CK-MB (CK-2) Rel Index Albumin Ur Specific [place] Urine WBC (Auto) Digoxin 0.5 L Salicylates Acetaminophen 06/24/19 06/24/19 06/24/19 05:53 12:01 16:55 WBC Hgb MCH RDW Plt Count [place] % (Auto) Lymph # Seg Neutrophils % Seg Neuts % (Manual) Lymphocytes % (Manual) Seg Neutrophils # Man Lymphocytes # (Manual) Monocytes # (Manual) D-Dimer ABG pH ABG pO2 ABG HCO3 ABG O2 Saturation ABG Base Excess ABG Hemoglobin Oxyhemoglobin Sodium Potassium Chloride Carbon Dioxide BUN Creatinine Glucose POC Glucose 184 H 178 H 152 H Calcium Magnesium Lactate Dehydrogenase CK-MB (CK-2) CK-MB (CK-2) Rel Index Albumin Ur Specific [place] Urine WBC (Auto) Digoxin Salicylates Acetaminophen 06/25/19 06/25/19 06/25/19 00:10 04:37 04:38 WBC 17.9 H Hgb MCH 25 L RDW 18.3 H Plt Count 124 L [place] % (Auto) Lymph # Seg Neutrophils % Seg Neuts % (Manual) 94.0 H Lymphocytes % (Manual) 1.0 L Seg Neutrophils # Man 16.8 H Lymphocytes # (Manual) 0.2 L Monocytes # (Manual) 0.9 H D-Dimer ABG pH ABG pO2 62.7 L ABG HCO3 33.0 H ABG O2 Saturation 91.8 L ABG Base Excess 7.8 H ABG Hemoglobin 10.0 L Oxyhemoglobin 90.2 L Sodium Potassium Chloride Carbon Dioxide BUN Creatinine Glucose POC Glucose 145 H Calcium Magnesium Lactate Dehydrogenase CK-MB (CK-2) CK-MB (CK-2) Rel Index Albumin Ur Specific [place] Urine WBC (Auto) Digoxin Salicylates Acetaminophen 06/25/19 06/25/19 06/25/19 04:38 05:40 12:45 WBC Hgb MCH RDW Plt Count [place] % (Auto) Lymph # Seg Neutrophils % Seg Neuts % (Manual) Lymphocytes % (Manual) Seg Neutrophils # Man Lymphocytes # (Manual) Monocytes # (Manual) D-Dimer ABG pH ABG pO2 ABG HCO3 ABG O2 Saturation ABG Base Excess ABG Hemoglobin Oxyhemoglobin Sodium Potassium Chloride 95.4 L Carbon Dioxide 31 H BUN 22 H Creatinine 0.3 L Glucose 126 H POC Glucose 128 H 169 H Calcium Magnesium Lactate Dehydrogenase CK-MB (CK-2) CK-MB (CK-2) Rel Index Albumin Ur Specific [place] Urine WBC (Auto) Digoxin Salicylates Acetaminophen 06/25/19 06/26/19 06/26/19 16:57 00:30 05:22 WBC Hgb MCH RDW Plt Count [place] % (Auto) Lymph # Seg Neutrophils % Seg Neuts % (Manual) Lymphocytes % (Manual) Seg Neutrophils # Man Lymphocytes # (Manual) Monocytes # (Manual) D-Dimer ABG pH ABG pO2 ABG HCO3 ABG O2 Saturation ABG Base Excess ABG Hemoglobin Oxyhemoglobin Sodium Potassium Chloride Carbon Dioxide BUN Creatinine Glucose POC Glucose 130 H 167 H 155 H Calcium Magnesium Lactate Dehydrogenase CK-MB (CK-2) CK-MB (CK-2) Rel Index Albumin Ur Specific [place] Urine WBC (Auto) Digoxin Salicylates Acetaminophen Allied health notes reviewed: nursing
--- NOTE | 2019-06-26 14:41 | Progress Note ---
Assessment and Plan Paroxysmal Atrial flutter/afib/MAT currently in sinus rhythm on amiodarone, diltiazem and digoxin for suppression. not on anticoagulation secondary to history of melena and anemia. 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 She did undergo PCI of the mid LAD using bare metal stent. Recommend: Continue oral Cardizem, and Amiodarone for now. Will stop digoxin for now due to potential for additive toxicity with amiodarone treatment. Otherwise, conservative cardiac management. Subjective Date of service: 06/26/19 Principal diagnosis: Ac and ch hypoxic & hypercapnic resp failure; AE-COPD; Tobacco use disorder Interval history: No acute events Objective Vital Signs Temp Pulse Pulse Resp Resp BP Pulse Ox 06/26/19 14:00 57 L 9 L 117/63 100 06/26/19 13:30 57 L 9 L 117/63 89 06/26/19 13:20 61 117/63 06/26/19 13:00 60 11 L 119/61 86 06/26/19 12:31 60 10 L 119/61 92 06/26/19 12:00 97.8 F 63 9 L 121/62 98 06/26/19 11:49 68 9 L 111/60 97 06/26/19 11:30 69 9 L 111/60 90 06/26/19 11:00 74 10 L 112/58 96 06/26/19 10:31 87 12 111/65 95 06/26/19 10:00 84 12 122/61 99 06/26/19 09:31 73 10 L 122/56 100 06/26/19 09:10 68 11 L 147/74 100 06/26/19 09:01 94 H 15 147/74 99 06/26/19 08:53 61 21 06/26/19 08:31 61 15 151/71 100 06/26/19 08:30 61 151/71 100 06/26/19 08:01 57 L 16 121/63 94 06/26/19 08:00 98.7 F 90 96 06/26/19 07:31 58 L 16 127/66 97 06/26/19 07:01 60 14 117/62 93 06/26/19 06:45 61 16 118/58 94 06/26/19 06:31 63 16 118/58 94 06/26/19 06:15 66 16 112/56 93 06/26/19 06:01 68 16 112/56 93 06/26/19 05:45 70 16 120/59 92 06/26/19 05:31 70 16 120/59 94 06/26/19 05:15 98 H 12 111/54 95 06/26/19 05:10 70 111/54 06/26/19 05:01 65 16 111/54 96 06/26/19 04:45 60 16 111/54 86 06/26/19 04:31 62 15 111/54 86 06/26/19 04:15 66 16 106/54 88 06/26/19 04:07 65 108/55 92 06/26/19 04:01 68 16 108/55 93 06/26/19 04:00 98.9 F 62 96 06/26/19 03:45 65 16 106/55 90 06/26/19 03:30 63 16 106/55 89 06/26/19 03:15 65 16 106/55 89 06/26/19 03:00 67 16 106/55 90 06/26/19 02:45 73 16 105/59 91 06/26/19 02:30 76 16 105/59 93 06/26/19 02:15 81 16 112/64 93 06/26/19 02:01 92 H 17 112/64 92 06/26/19 01:45 120 H 23 129/75 93 06/26/19 01:31 109 H 13 129/75 93 06/26/19 01:15 114 H 20 134/75 94 06/26/19 01:01 110 H 19 135/73 92 06/26/19 00:45 116 H 15 134/75 93 06/26/19 00:31 122 H 16 134/75 93 06/26/19 00:15 121 H 19 123/54 92 06/26/19 00:01 71 15 123/54 85 06/26/19 00:00 99 F 06/25/19 23:45 73 12 111/53 86 06/25/19 23:36 63 131/36 06/25/19 23:31 62 16 131/36 87 06/25/19 23:25 109 H 96 06/25/19 23:15 66 16 111/53 87 06/25/19 23:00 64 16 111/53 89 06/25/19 22:45 65 15 113/52 91 06/25/19 22:31 66 16 113/52 92 06/25/19 22:15 66 15 112/54 93 06/25/19 22:01 69 16 112/54 93 06/25/19 21:45 69 16 117/60 95 06/25/19 21:35 74 16 117/60 96 06/25/19 21:31 66 17 117/60 90 06/25/19 21:30 66 96 06/25/19 21:15 65 16 127/58 90 06/25/19 21:01 61 16 127/58 93 06/25/19 20:45 65 16 100/49 89 06/25/19 20:30 68 16 100/49 89 06/25/19 20:15 67 16 103/49 89 06/25/19 20:01 73 16 103/49 90 06/25/19 20:00 99.3 F 06/25/19 19:45 77 16 110/58 90 06/25/19 19:31 77 6 L 110/58 90 06/25/19 19:30 65 95 06/25/19 19:16 91 H 18 06/25/19 19:15 93 H 19 169/142 92 06/25/19 19:09 83 25 H 181/76 93 06/25/19 19:01 94 H 14 181/76 87 06/25/19 18:45 84 15 170/77 94 06/25/19 18:31 111 H 17 140/74 88 06/25/19 18:15 95 H 17 140/74 86 06/25/19 18:01 98 H 19 140/74 91 06/25/19 17:45 114 H 18 140/74 84 06/25/19 17:31 105 H 16 140/74 85 06/25/19 17:15 99 H 16 144/72 95 06/25/19 17:01 99 H 20 131/83 94 06/25/19 16:45 109 H 22 131/83 94 06/25/19 16:31 104 H 17 131/83 93 06/25/19 16:15 99 H 17 128/76 93 06/25/19 16:01 99 H 17 128/76 96 05/08/20 16:00 98.4 F 115 H 95 06/25/19 15:45 99 H 21 128/76 95 06/25/19 15:30 92 H 12 128/76 96 06/25/19 15:15 104 H 17 133/71 97 06/25/19 15:01 100 H 17 133/71 97 06/25/19 14:58 105 H 20 06/25/19 14:45 100 H 19 127/73 97 - Physical Examination General: Other (intubated on the vent) HEENT: Positive: Other (intubated) Neck: Positive: neck supple Cardiac: Positive: Reg Rate and Rhythm Lungs: Positive: Rhonchi Abdomen: Positive: Soft. Negative: Pulsations/Bruits Extremities: Absent: edema - Imaging and Cardiology EKG: image reviewed - Allied health notes Allied health notes reviewed: nursing
[2019-06-27] MEDS: methylPREDNISolone Sod Succinate 40 MG/1 ML INJ IV SCH ×5 (00:20→23:11)
[2019-06-27] MEDS: INSULIN LISPRO 100 UNIT/ML SUB-Q SCH ×4 (00:20→17:59)
[2019-06-27] MEDS: IPRATROPIUM/ALBUTEROL SULFATE 3 ML AMPUL.NEB IH SCH ×3 (01:58→20:23)
[2019-06-27] MEDS: dilTIAZem 30 MG TAB PO SCH ×3 (06:04→22:12)
[2019-06-27] MEDS: CEFEPIME/NS 1 GM/100 ML 1 GM/100 ML BAG IV SCH ×3 (06:05→21:30)
[2019-06-27] MEDS: fentaNYL DRIP Premix 2,000 MCG/100 ML BAG IV SCH (08:34)
[2019-06-27] MEDS: VENLAFAXINE 75 MG TAB PO SCH ×3 (08:41→20:20)
[2019-06-27] MEDS: BUDESONIDE 0.5 MG/2 ML NEBU IH SCH ×2 (09:22→20:23)
[2019-06-27] MEDS: ARFORMOTEROL 15 MCG/2 ML NEBU IH SCH ×2 (09:22→20:23)
[2019-06-27] MEDS: DOCUSATE SODIUM 100 MG/10 ML ORAL LIQD PO SCH ×2 (09:24→22:12)
[2019-06-27] MEDS: LANSOPRAZOLE 30 MG SOLUTAB FEEDTUBE SCH (09:24)
[2019-06-27] MEDS: QUEtiapine 100 MG TAB PO SCH ×2 (09:24→22:15)
[2019-06-27] MEDS: AMIODARONE 200 MG TAB PO SCH (09:24)
[2019-06-27] MEDS ORDERED: hydrALAZINE 10 MG TAB PO SCH (10:00)
--- NOTE | 2019-06-27 12:05 | Progress Note ---
Assessment and Plan Cultures: Blood culture 06/11/2019 no growth Sputum culture 06/11/2019 pansensitive Pseudomonas Sputum culture 06/19/2019 Pseudomonas A/P: 59-year-old female past medical history GERD, tobacco abuse, COPD, CAD admitted to the hospital with COPD exacerbation admitted with acute hypoxic respiratory failure #Pseudomonas pneumonia: patient has been intubated for some time, and previously had Pseudomonas pneumonia. May have some colonization of the tube. Regardless, would continue to treat with Cefepime, and may need up to 14 days treatment for a VAP. #COPD with acute respiratory failure: on the vent. #Tobacco abuse Recs: -Complete total 14 days of Cefepime (ending 06/28/2019) -WBC jump may be secondary to steroids (started on 06/23/2019) Raul Gupta MD, FACP [facility] ([facility]) C: [phone] O: [phone] F: [phone] Subjective Date of service: 06/27/19 Principal diagnosis: Ac and ch hypoxic & hypercapnic resp failure; AE-COPD; Tobacco use disorder Interval history: Remains afebrile. Remains intubated, on the vent. Objective - Exam Narrative Exam: Physical Exam: Constitutional: sedated, intubated, on the vent Head, Ears, Nose: Normocephalic, atraumatic. External ears, nose normal Eyes: Conjunctivae/corneas clear. No icterus. No ptosis. Neck: intubated Oral: intubated Cardiovascular: S1, S2 + Respiratory: AE fair bilaterally and equal GI: Soft, bowel sounds + Musculoskeletal: No pedal edema, no cyanosis. Skin: No rash or abscess Hem/Lymphatic: No palpable cervical or supraclavicular nodes. No lymphangitis Psych: no agitation Neurological: sedated, intubated, on the vent, exam limited - Constitutional Vitals: Vital Signs Temp Pulse Resp BP Pulse Ox 98.5 F 96 H 14 112/64 99 06/27/19 08:00 06/27/19 12:00 06/27/19 12:00 06/27/19 12:00 06/27/19 12:00 Temperature -Last 24 Hours Temperature 98.5 F Temperature 99.4 F Temperature 99.2 F Temperature 99 F Temperature 98 F - Labs CBC & Chem 7: 06/25/19 04:38 06/25/19 04:38 Labs: Abnormal lab results 06/26/19 06/26/19 06/27/19 Range/Units 12:02 23:57 05:54 POC Glucose 130 H 155 H 152 H (70-105)
--- NOTE | 2019-06-27 12:53 | Progress Note ---
Assessment and Plan Paroxysmal Atrial flutter/afib/MAT currently in sinus rhythm on amiodarone, diltiazem and digoxin for suppression. not on anticoagulation secondary to history of melena and anemia. 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 She did undergo PCI of the mid LAD using bare metal stent. Recommend: Continue oral Cardizem, and Amiodarone for now. Digoxin stopped for now due to potential for additive toxicity with amiodarone treatment. Otherwise, conservative cardiac management. Subjective Date of service: 06/27/19 Principal diagnosis: Ac and ch hypoxic & hypercapnic resp failure; AE-COPD; Tobacco use disorder Interval history: No acute events. Remains on vent. Objective Vital Signs Temp Pulse Pulse Pulse Resp Resp BP 06/27/19 12:00 98.4 F 87 104 H 14 112/64 06/27/19 11:30 103 H 15 112/67 06/27/19 11:00 108 H 14 134/71 06/27/19 10:30 114 H 17 140/68 06/27/19 10:00 111 H 15 145/88 06/27/19 09:30 122 H 14 145/88 06/27/19 09:00 131 H 20 162/86 06/27/19 08:30 93 H 19 167/84 06/27/19 08:00 98.5 F 122 H 115 H 102 H 20 18 145/88 06/27/19 07:30 98 H 15 156/103 06/27/19 07:00 105 H 19 156/103 06/27/19 06:30 78 15 123/78 06/27/19 06:04 73 123/78 06/27/19 06:00 88 16 123/78 06/27/19 05:30 68 16 120/60 06/27/19 05:00 72 15 125/65 06/27/19 04:30 77 16 138/75 06/27/19 04:09 83 124/65 06/27/19 04:00 80 87 16 138/75 06/27/19 03:59 99.4 F 06/27/19 03:30 94 H 16 138/75 06/27/19 03:00 97 H 16 134/78 06/27/19 02:30 106 H 14 124/68 06/27/19 02:00 110 H 15 124/68 06/27/19 01:30 107 H 16 132/69 06/27/19 01:00 113 H 17 132/69 06/27/19 00:32 122 H 122 H 06/27/19 00:30 115 H 16 118/73 06/27/19 00:00 112 H 17 117/73 06/26/19 23:30 110 H 14 117/73 06/26/19 23:10 99.2 F 06/26/19 23:08 121 H 17 139/59 06/26/19 23:00 107 H 16 133/63 06/26/19 22:30 111 H 15 133/63 06/26/19 22:00 73 14 113/47 06/26/19 21:49 69 136/72 06/26/19 21:30 69 16 136/72 06/26/19 21:11 72 12 06/26/19 21:10 71 14 139/68 06/26/19 21:00 72 11 L 136/72 06/26/19 20:30 74 11 L 143/77 06/26/19 20:00 99 F 74 74 16 143/77 06/26/19 19:30 97 H 19 165/87 06/26/19 19:00 96 H 16 169/100 06/26/19 18:30 82 14 124/73 06/26/19 18:00 89 12 122/80 06/26/19 17:30 112 H 16 145/81 06/26/19 17:00 112 H 16 122/80 06/26/19 16:52 112 H 17 145/81 06/26/19 16:30 95 H 11 L 122/62 06/26/19 16:00 98 F 100 H 14 122/62 06/26/19 15:30 70 13 119/60 06/26/19 15:00 63 10 L 131/66 06/26/19 14:49 59 L 9 L 06/26/19 14:30 58 L 11 L 129/64 06/26/19 14:00 57 L 9 L 117/63 06/26/19 13:30 57 L 9 L 117/63 06/26/19 13:20 61 117/63 06/26/19 13:00 60 11 L 119/61 Pulse Ox 06/27/19 12:00 99 06/27/19 11:30 98 06/27/19 11:00 97 06/27/19 10:30 92 06/27/19 10:00 92 06/27/19 09:30 94 06/27/19 09:00 97 06/27/19 08:30 100 06/27/19 08:00 94 06/27/19 07:30 97 06/27/19 07:00 98 06/27/19 06:30 99 06/27/19 06:04 06/27/19 06:00 100 06/27/19 05:30 98 06/27/19 05:00 100 06/27/19 04:30 100 06/27/19 04:09 99 06/27/19 04:00 99 06/27/19 03:59 06/27/19 03:30 99 06/27/19 03:00 99 06/27/19 02:30 98 06/27/19 02:00 98 06/27/19 01:30 98 06/27/19 01:00 97 06/27/19 00:32 06/27/19 00:30 97 06/27/19 00:00 97 06/26/19 23:30 96 06/26/19 23:10 06/26/19 23:08 97 06/26/19 23:00 97 06/26/19 22:30 98 06/26/19 22:00 99 06/26/19 21:49 06/26/19 21:30 96 06/26/19 21:11 06/26/19 21:10 99 06/26/19 21:00 98 06/26/19 20:30 97 06/26/19 20:00 97 06/26/19 19:30 98 06/26/19 19:00 99 06/26/19 18:30 98 06/26/19 18:00 98 06/26/19 17:30 97 06/26/19 17:00 99 06/26/19 16:52 100 06/26/19 16:30 100 06/26/19 16:00 100 06/26/19 15:30 100 06/26/19 15:00 100 06/26/19 14:49 05/09/20 14:30 100 06/26/19 14:00 100 06/26/19 13:30 89 06/26/19 13:20 06/26/19 13:00 86 - Physical Examination General: Other (intubated on the vent) HEENT: Positive: Other (intubated) Neck: Positive: neck supple Cardiac: Positive: Reg Rate and Rhythm Lungs: Positive: clear to auscultation Abdomen: Positive: Soft. Negative: Pulsations/Bruits Extremities: Absent: edema - Imaging and Cardiology EKG: image reviewed - Telemetry EKG Rhythm: Sinus Rhythm - Allied health notes Allied health notes reviewed: nursing
[2019-06-27] MEDS: MAGNESIUM HYDROXIDE (MOM) ORAL LIQD UDC PO PRN (13:47)
[2019-06-27 14:12] LABS: Hematocrit 32.9 % (30.3-42.9); Mean Corpuscular HGB Conc 30 % (30-34); Mean Corpuscular Volume 82 fl (79-97); Platelet Count 114 K/mm3 (140-440); Red Blood Count 4.04 M/mm3 (3.65-5.03); Red Cell Distribution Width 17.9 % (13.2-15.2)
[2019-06-27 14:32] LABS: BUN/Creatinine Ratio 105; Blood Urea Nitrogen 21 mg/dL (7-17); Calcium 8.5 mg/dL (8.4-10.2); Hemolysis Index 14
[2019-06-27 14:59] LABS: Anisocytosis Few; Basophils % (Manual) 0 % (0.0-1.8); Eosinophils % (Manual) 0 % (0.0-4.3); Hypochromasia Few; Macrocytosis Few; Platelet Estimate Consistent w Auto; Total Cells Counted 100
--- NOTE | 2019-06-27 15:46 | Progress Note ---
Assessment and Plan Acute and chronic hypoxic and hypercapnic respiratory failure on MVS Acute exacerbation of COPD Pseudomonas pneumonia Thrombocytopenia History of coronary artery disease/CHF History of depression; Obesity; BMI 32.2 Chronic narcotic dependence Tobacco use disorder/Nicotine dependence Daily SBT as tolerated and per protocol CXR, ABG in am CBC , BMP in am Continue all current care Critical care bundles addressed -Continue with MVS, Lung protective strategies, monitor airway pressures -Adjust minute ventilation as indicated for better gas exchange -VAP bundle addressed -Aspiration precautions, HOB>40 -Daily assessment for readiness for weaning; SAT and SBT -Antibiotics for severe AE-COPD -Steroids with slow taper -Bronchodilators with pulmonary hygiene -Stress ulcer prophylaxis, VTE prophylaxis -Continue enteric nutritional support -Continue to monitor glycemic control, with target blood glucose 140-180 mg/dL while critically ill. -Avoid hypoglycemia - Wean supplemental oxygen for target O2 sat's > 90% - Avoid benzodiazepines to reduce the possibility of delirium - prn analgesia per CPOT score - Mobility protocol , off loading and skin assessment per protocol for pressure ulcer prevention - Monitor hemodynamics closely -Nicotine withdrawal precautions -Smoking cessation counselling once she is extubated and able to participate in the discussion -Chronic home medications as indicated - continue other care per attending / other consultants CONDITION: CRITICAL PROGNOSIS: GUARDED CODE STATUS: FULL CODE Life threatening condition from acute and chronic hypoxic-hypercapnic respiratory failure with ventilator dependency Mortality/Morbidity- High Complexity of decision making- High The high probability of a clinically significant, sudden or life-threatening deterioration of the [respiratory, ] system(s) required my full and direct attention, intervention and personal management. The aggregate critical care time was [31] minutes without overlap. Time includes spent on; [x] Data Review and interpretation [x] Patient assessment and monitoring of vital signs [x] Documentation [x] Medication orders and management Subjective Date of service: 06/27/19 Principal diagnosis: Ac and ch hypoxic & hypercapnic resp failure; AE-COPD; Tobacco use disorder Interval history: Patient is seen today for: Ac and ch hypoxic hypercapnic resp failure; AE-COPD; Tobacco use disorder/Nicotine dependence; Hypernatremia; HTN (hypotensive at presentation ); Chronic narcotic dependence ; Chronic back pain; Anxiety disorder Seen and examined at bedside; 24-hour events reviewed; nursing and respiratory care staff consulted; no adverse overnight events reported to me; laying in bed; AMS is persistent; Remains on full MVS, no reported tachyarrythmias, on Fentanyl. No vomiting, no fevers Tolerating some PSV 14/6, calm Vitals, labs, medications, chart reveiwed Objective Vital Signs - 12hr 06/27/19 06/27/19 06/27/19 03:59 04:00 04:09 Temperature 99.4 F Pulse Rate 80 83 Pulse Rate [ Bilateral] Pulse Rate [ 87 From Monitor] Respiratory 16 Rate Respiratory Rate [Bilateral ] Blood Pressure 138/75 124/65 O2 Sat by Pulse 99 99 Oximetry 06/27/19 06/27/19 06/27/19 04:30 05:00 05:30 Temperature Pulse Rate 77 72 68 Pulse Rate [ Bilateral] Pulse Rate [ From Monitor] Respiratory 16 15 16 Rate Respiratory Rate [Bilateral ] Blood Pressure 138/75 125/65 120/60 O2 Sat by Pulse 100 100 98 Oximetry 06/27/19 06/27/19 06/27/19 06:00 06:04 06:30 Temperature Pulse Rate 88 73 78 Pulse Rate [ Bilateral] Pulse Rate [ From Monitor] Respiratory 16 15 Rate Respiratory Rate [Bilateral ] Blood Pressure 123/78 123/78 123/78 O2 Sat by Pulse 100 99 Oximetry 06/27/19 06/27/19 06/27/19 07:00 07:30 08:00 Temperature 98.5 F Pulse Rate 105 H 98 H 122 H Pulse Rate [ 115 H Bilateral] Pulse Rate [ 102 H From Monitor] Respiratory 19 15 20 Rate Respiratory 18 Rate [Bilateral ] Blood Pressure 156/103 156/103 145/88 O2 Sat by Pulse 98 97 94 Oximetry 06/27/19 06/27/19 06/27/19 08:30 09:00 09:30 Temperature Pulse Rate 93 H 131 H 122 H Pulse Rate [ Bilateral] Pulse Rate [ From Monitor] Respiratory 19 20 14 Rate Respiratory Rate [Bilateral ] Blood Pressure 167/84 162/86 145/88 O2 Sat by Pulse 100 97 94 Oximetry 06/27/19 06/27/19 06/27/19 10:00 10:30 11:00 Temperature Pulse Rate 111 H 114 H 108 H Pulse Rate [ Bilateral] Pulse Rate [ From Monitor] Respiratory 15 17 14 Rate Respiratory Rate [Bilateral ] Blood Pressure 145/88 140/68 134/71 O2 Sat by Pulse 92 92 97 Oximetry 06/27/19 06/27/19 06/27/19 11:30 12:00 12:30 Temperature 98.4 F Pulse Rate 103 H 87 74 Pulse Rate [ Bilateral] Pulse Rate [ 104 H From Monitor] Respiratory 15 14 12 Rate Respiratory Rate [Bilateral ] Blood Pressure 112/67 112/64 107/56 O2 Sat by Pulse 98 99 100 Oximetry 06/27/19 06/27/19 06/27/19 13:00 13:30 13:43 Temperature Pulse Rate 75 70 83 Pulse Rate [ Bilateral] Pulse Rate [ From Monitor] Respiratory 11 L 11 L Rate Respiratory Rate [Bilateral ] Blood Pressure 116/58 114/57 114/57 O2 Sat by Pulse 100 100 Oximetry 06/27/19 06/27/19 14:00 14:30 Temperature Pulse Rate 76 66 Pulse Rate [ Bilateral] Pulse Rate [ From Monitor] Respiratory 12 11 L Rate Respiratory Rate [Bilateral ] Blood Pressure 116/58 114/57 O2 Sat by Pulse 100 99 Oximetry Constitutional: no acute distress, other (elderly looking obese CF, normocephalic on MVS without signidficant dyssynchrony) Eyes: non-icteric ENT: oropharynx moist, other (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) Neck: supple, no lymphadenopathy, no JVD Effort: mildly labored Ascultation: Bilateral: diminished breath sounds, rhonchi Percussion: Bilateral: not dull Cardiovascular: regular rate and rhythm Gastrointestinal: normoactive bowel sounds, soft, non-tender, non-distended Integumentary: normal Extremities: no cyanosis, no edema, pulses normal, no ischemia or petechiae Neurologic: non-focal exam (grossly), pupils equal and round, unable to assess Psychiatric: other (Unable to assess re: AMS) CBC and BMP: 06/27/19 13:41 06/27/19 13:41 ABG, PT/INR, D-dimer: ABG ABG pH 7.440 pH Units (7.350-7.450) 06/25/19 04:37 ABG pCO2 49.8 mm Hg 06/25/19 04:37 ABG pO2 62.7 mm Hg (80.0-90.0) L 06/25/19 04:37 ABG O2 Saturation 91.8 % (95.0-99.0) L 06/25/19 04:37 PT/INR, D-dimer PT 13.0 Sec. (12.2-14.9) 06/11/19 18:03 INR 0.97 (0.87-1.13) 06/11/19 18:03 D-Dimer 1177.30 ng/mlDDU (0-234) H 06/19/19 14:14 Abnormal lab findings: Abnormal Labs 06/11/19 06/11/19 06/11/19 18:03 18:03 18:03 WBC Hgb MCH 25 L RDW 19.4 H Plt Count 124 L [place] % (Auto) 10.3 H Lymph # 1.1 L Seg Neutrophils % 74.4 H Seg Neuts % (Manual) Lymphocytes % (Manual) Seg Neutrophils # Man Lymphocytes # (Manual) Monocytes # (Manual) D-Dimer ABG pH ABG pO2 ABG HCO3 ABG O2 Saturation ABG Base Excess ABG Hemoglobin Oxyhemoglobin Sodium 146 H Potassium Chloride Carbon Dioxide BUN 21 H Creatinine 0.4 L Glucose POC Glucose Calcium Magnesium 2.70 H Lactate Dehydrogenase CK-MB (CK-2) CK-MB (CK-2) Rel Index Albumin 3.5 L Ur Specific [place] Urine WBC (Auto) Digoxin Salicylates 1.0 L Acetaminophen 06/11/19 06/11/19 06/11/19 18:03 18:59 23:22 WBC Hgb MCH RDW Plt Count [place] % (Auto) Lymph # Seg Neutrophils % Seg Neuts % (Manual) Lymphocytes % (Manual) Seg Neutrophils # Man Lymphocytes # (Manual) Monocytes # (Manual) D-Dimer ABG pH 7.340 L ABG pO2 76.0 L ABG HCO3 34.6 H ABG O2 Saturation ABG Base Excess 7.1 H ABG Hemoglobin 10.9 L Oxyhemoglobin 91.6 L Sodium Potassium Chloride Carbon Dioxide BUN Creatinine Glucose POC Glucose Calcium Magnesium Lactate Dehydrogenase CK-MB (CK-2) 5.5 H CK-MB (CK-2) Rel Index 5.5 H Albumin Ur Specific [place] Urine WBC (Auto) Digoxin Salicylates Acetaminophen < 5.0 L 06/12/19 06/12/19 06/12/19 00:29 02:04 04:20 WBC Hgb MCH RDW Plt Count [place] % (Auto) Lymph # Seg Neutrophils % Seg Neuts % (Manual) Lymphocytes % (Manual) Seg Neutrophils # Man Lymphocytes # (Manual) Monocytes # (Manual) D-Dimer ABG pH 7.313 L ABG pO2 75.3 L ABG HCO3 29.9 H ABG O2 Saturation 94.3 L ABG Base Excess ABG Hemoglobin 10.8 L Oxyhemoglobin 92.0 L Sodium Potassium Chloride Carbon Dioxide BUN Creatinine Glucose POC Glucose 107 H Calcium Magnesium Lactate Dehydrogenase CK-MB (CK-2) CK-MB (CK-2) Rel Index Albumin Ur Specific [place] Urine WBC (Auto) 30.0 H Digoxin Salicylates Acetaminophen 06/12/19 06/12/19 06/12/19 05:09 05:09 05:09 WBC Hgb MCH 25 L RDW 19.4 H Plt Count 114 L [place] % (Auto) Lymph # Seg Neutrophils % Seg Neuts % (Manual) 91.0 H Lymphocytes % (Manual) 7.0 L Seg Neutrophils # Man Lymphocytes # (Manual) 0.4 L Monocytes # (Manual) D-Dimer ABG pH ABG pO2 ABG HCO3 ABG O2 Saturation ABG Base Excess ABG Hemoglobin Oxyhemoglobin Sodium 147 H Potassium Chloride 107.4 H Carbon Dioxide BUN 19 H Creatinine 0.4 L Glucose 110 H POC Glucose Calcium 8.2 L Magnesium Lactate Dehydrogenase CK-MB (CK-2) CK-MB (CK-2) Rel Index 5.4 H Albumin Ur Specific [place] Urine WBC (Auto) Digoxin Salicylates Acetaminophen 06/12/19 06/12/19 06/13/19 06:42 23:21 04:14 WBC Hgb MCH RDW Plt Count [place] % (Auto) Lymph # Seg Neutrophils % Seg Neuts % (Manual) Lymphocytes % (Manual) Seg Neutrophils # Man Lymphocytes # (Manual) Monocytes # (Manual) D-Dimer ABG pH ABG pO2 62.6 L ABG HCO3 29.6 H ABG O2 Saturation 91.0 L ABG Base Excess ABG Hemoglobin 10.3 L Oxyhemoglobin 89.0 L Sodium Potassium Chloride Carbon Dioxide BUN Creatinine Glucose POC Glucose 108 H 106 H Calcium Magnesium Lactate Dehydrogenase CK-MB (CK-2) CK-MB (CK-2) Rel Index Albumin Ur Specific [place] Urine WBC (Auto) Digoxin Salicylates Acetaminophen 06/13/19 06/13/19 06/13/19 04:54 04:54 12:20 WBC Hgb MCH 25 L RDW 19.2 H Plt Count 119 L [place] % (Auto) Lymph # Seg Neutrophils % Seg Neuts % (Manual) 95.0 H Lymphocytes % (Manual) 2.0 L Seg Neutrophils # Man 9.1 H Lymphocytes # (Manual) 0.2 L Monocytes # (Manual) D-Dimer ABG pH ABG pO2 ABG HCO3 ABG O2 Saturation ABG Base Excess ABG Hemoglobin Oxyhemoglobin Sodium 149 H Potassium Chloride 111.4 H Carbon Dioxide BUN 26 H Creatinine 0.5 L Glucose 107 H POC Glucose 125 H Calcium Magnesium Lactate Dehydrogenase CK-MB (CK-2) CK-MB (CK-2) Rel Index Albumin Ur Specific [place] Urine WBC (Auto) Digoxin Salicylates Acetaminophen 06/13/19 06/14/19 06/14/19 17:25 03:44 04:55 WBC Hgb MCH RDW Plt Count [place] % (Auto) Lymph # Seg Neutrophils % Seg Neuts % (Manual) Lymphocytes % (Manual) Seg Neutrophils # Man Lymphocytes # (Manual) Monocytes # (Manual) D-Dimer ABG pH ABG pO2 58.9 L ABG HCO3 29.5 H ABG O2 Saturation 88.7 L ABG Base Excess ABG Hemoglobin 10.2 L Oxyhemoglobin 86.7 L Sodium 150 H Potassium Chloride 110.4 H Carbon Dioxide BUN 20 H Creatinine 0.4 L Glucose 105 H POC Glucose 128 H Calcium Magnesium Lactate Dehydrogenase CK-MB (CK-2) CK-MB (CK-2) Rel Index Albumin Ur Specific [place] Urine WBC (Auto) Digoxin Salicylates Acetaminophen 06/14/19 06/14/19 06/14/19 05:37 11:58 21:00 WBC Hgb MCH RDW Plt Count [place] % (Auto) Lymph # Seg Neutrophils % Seg Neuts % (Manual) Lymphocytes % (Manual) Seg Neutrophils # Man Lymphocytes # (Manual) Monocytes # (Manual) D-Dimer ABG pH 7.321 L ABG pO2 60.0 L ABG HCO3 31.4 H ABG O2 Saturation 87.3 L ABG Base Excess 4.1 H ABG Hemoglobin 10.6 L Oxyhemoglobin 84.8 L Sodium Potassium Chloride Carbon Dioxide BUN Creatinine Glucose POC Glucose 111 H 116 H Calcium Magnesium Lactate Dehydrogenase CK-MB (CK-2) CK-MB (CK-2) Rel Index Albumin Ur Specific [place] Urine WBC (Auto) Digoxin Salicylates Acetaminophen 06/15/19 06/15/19 06/15/19 00:22 03:25 05:08 WBC Hgb MCH RDW Plt Count [place] % (Auto) Lymph # Seg Neutrophils % Seg Neuts % (Manual) Lymphocytes % (Manual) Seg Neutrophils # Man Lymphocytes # (Manual) Monocytes # (Manual) D-Dimer ABG pH 7.317 L ABG pO2 ABG HCO3 31.5 H ABG O2 Saturation ABG Base Excess 4.1 H ABG Hemoglobin 10.4 L Oxyhemoglobin 94.1 L Sodium Potassium Chloride Carbon Dioxide 31 H BUN 23 H Creatinine 0.3 L Glucose 120 H POC Glucose 108 H Calcium Magnesium Lactate Dehydrogenase CK-MB (CK-2) CK-MB (CK-2) Rel Index Albumin Ur Specific [place] Urine WBC (Auto) Digoxin Salicylates Acetaminophen 06/15/19 06/15/19 06/15/19 05:24 11:41 17:38 WBC Hgb MCH RDW Plt Count [place] % (Auto) Lymph # Seg Neutrophils % Seg Neuts % (Manual) Lymphocytes % (Manual) Seg Neutrophils # Man Lymphocytes # (Manual) Monocytes # (Manual) D-Dimer ABG pH ABG pO2 ABG HCO3 ABG O2 Saturation ABG Base Excess ABG Hemoglobin Oxyhemoglobin Sodium Potassium Chloride Carbon Dioxide BUN Creatinine Glucose POC Glucose 111 H 154 H 115 H Calcium Magnesium Lactate Dehydrogenase CK-MB (CK-2) CK-MB (CK-2) Rel Index Albumin Ur Specific [place] Urine WBC (Auto) Digoxin Salicylates Acetaminophen 06/15/19 06/16/19 06/16/19 23:31 03:40 05:18 WBC Hgb MCH RDW Plt Count [place] % (Auto) Lymph # Seg Neutrophils % Seg Neuts % (Manual) Lymphocytes % (Manual) Seg Neutrophils # Man Lymphocytes # (Manual) Monocytes # (Manual) D-Dimer ABG pH 7.313 L ABG pO2 96.4 H ABG HCO3 35.2 H ABG O2 Saturation ABG Base Excess 7.2 H ABG Hemoglobin 10.5 L Oxyhemoglobin 94.9 L Sodium Potassium Chloride Carbon Dioxide BUN Creatinine Glucose POC Glucose 161 H 158 H Calcium Magnesium Lactate Dehydrogenase CK-MB (CK-2) CK-MB (CK-2) Rel Index Albumin Ur Specific [place] Urine WBC (Auto) Digoxin Salicylates Acetaminophen 06/16/19 06/16/19 06/16/19 05:45 05:45 12:06 WBC 12.1 H Hgb MCH 25 L RDW 18.7 H Plt Count 93 L [place] % (Auto) Lymph # Seg Neutrophils % Seg Neuts % (Manual) 97.0 H Lymphocytes % (Manual) 0 L Seg Neutrophils # Man 11.7 H Lymphocytes # (Manual) 0.0 L Monocytes # (Manual) D-Dimer ABG pH ABG pO2 ABG HCO3 ABG O2 Saturation ABG Base Excess ABG Hemoglobin Oxyhemoglobin Sodium Potassium Chloride Carbon Dioxide 33 H BUN 25 H Creatinine 0.3 L Glucose 165 H POC Glucose 178 H Calcium Magnesium Lactate Dehydrogenase CK-MB (CK-2) CK-MB (CK-2) Rel Index Albumin Ur Specific [place] Urine WBC (Auto) Digoxin Salicylates Acetaminophen 06/16/19 06/16/19 06/17/19 17:55 23:42 03:35 WBC Hgb MCH RDW Plt Count [place] % (Auto) Lymph # Seg Neutrophils % Seg Neuts % (Manual) Lymphocytes % (Manual) Seg Neutrophils # Man Lymphocytes # (Manual) Monocytes # (Manual) D-Dimer ABG pH ABG pO2 73.2 L ABG HCO3 35.2 H ABG O2 Saturation 94.5 L ABG Base Excess 8.8 H ABG Hemoglobin 10.7 L Oxyhemoglobin 92.6 L Sodium Potassium Chloride Carbon Dioxide BUN Creatinine Glucose POC Glucose 180 H 160 H Calcium Magnesium Lactate Dehydrogenase CK-MB (CK-2) CK-MB (CK-2) Rel Index Albumin Ur Specific [place] Urine WBC (Auto) Digoxin Salicylates Acetaminophen 06/17/19 06/17/19 06/17/19 04:57 09:45 11:59 WBC 11.7 H Hgb MCH 25 L RDW 18.2 H Plt Count 79 L [place] % (Auto) Lymph # Seg Neutrophils % Seg Neuts % (Manual) 96.0 H Lymphocytes % (Manual) 3.0 L Seg Neutrophils # Man 11.2 H Lymphocytes # (Manual) 0.4 L Monocytes # (Manual) D-Dimer ABG pH ABG pO2 ABG HCO3 ABG O2 Saturation ABG Base Excess ABG Hemoglobin Oxyhemoglobin Sodium Potassium Chloride Carbon Dioxide 34 H BUN 31 H Creatinine 0.3 L Glucose 153 H POC Glucose 163 H Calcium Magnesium Lactate Dehydrogenase CK-MB (CK-2) CK-MB (CK-2) Rel Index Albumin Ur Specific [place] Urine WBC (Auto) Digoxin Salicylates Acetaminophen 06/17/19 06/17/19 06/17/19 12:34 17:33 23:39 WBC Hgb MCH RDW Plt Count [place] % (Auto) Lymph # Seg Neutrophils % Seg Neuts % (Manual) Lymphocytes % (Manual) Seg Neutrophils # Man Lymphocytes # (Manual) Monocytes # (Manual) D-Dimer ABG pH ABG pO2 ABG HCO3 ABG O2 Saturation ABG Base Excess ABG Hemoglobin Oxyhemoglobin Sodium Potassium Chloride Carbon Dioxide BUN Creatinine Glucose POC Glucose 171 H 186 H 161 H Calcium Magnesium Lactate Dehydrogenase CK-MB (CK-2) CK-MB (CK-2) Rel Index Albumin Ur Specific [place] Urine WBC (Auto) Digoxin Salicylates Acetaminophen 06/18/19 06/18/19 06/18/19 04:25 05:23 05:23 WBC 13.2 H Hgb MCH 25 L RDW 18.3 H Plt Count 81 L [place] % (Auto) Lymph # Seg Neutrophils % Seg Neuts % (Manual) 96.0 H Lymphocytes % (Manual) 4.0 L Seg Neutrophils # Man 12.7 H Lymphocytes # (Manual) 0.5 L Monocytes # (Manual) D-Dimer ABG pH ABG pO2 72.9 L ABG HCO3 33.8 H ABG O2 Saturation 94.6 L ABG Base Excess 7.3 H ABG Hemoglobin 11.1 L Oxyhemoglobin 92.8 L Sodium Potassium Chloride Carbon Dioxide 34 H BUN 36 H Creatinine 0.3 L Glucose 162 H POC Glucose Calcium Magnesium Lactate Dehydrogenase CK-MB (CK-2) CK-MB (CK-2) Rel Index Albumin Ur Specific [place] Urine WBC (Auto) Digoxin Salicylates Acetaminophen 06/18/19 06/18/19 06/18/19 05:37 12:26 18:17 WBC Hgb MCH RDW Plt Count [place] % (Auto) Lymph # Seg Neutrophils % Seg Neuts % (Manual) Lymphocytes % (Manual) Seg Neutrophils # Man Lymphocytes # (Manual) Monocytes # (Manual) D-Dimer ABG pH ABG pO2 ABG HCO3 ABG O2 Saturation ABG Base Excess ABG Hemoglobin Oxyhemoglobin Sodium Potassium Chloride Carbon Dioxide BUN Creatinine Glucose POC Glucose 177 H 156 H 134 H Calcium Magnesium Lactate Dehydrogenase CK-MB (CK-2) CK-MB (CK-2) Rel Index Albumin Ur Specific [place] Urine WBC (Auto) Digoxin Salicylates Acetaminophen 06/18/19 06/19/19 06/19/19 23:51 05:58 12:12 WBC Hgb MCH RDW Plt Count [place] % (Auto) Lymph # Seg Neutrophils % Seg Neuts % (Manual) Lymphocytes % (Manual) Seg Neutrophils # Man Lymphocytes # (Manual) Monocytes # (Manual) D-Dimer ABG pH ABG pO2 ABG HCO3 ABG O2 Saturation ABG Base Excess ABG Hemoglobin Oxyhemoglobin Sodium Potassium Chloride Carbon Dioxide BUN Creatinine Glucose POC Glucose 153 H 143 H 186 H Calcium Magnesium Lactate Dehydrogenase CK-MB (CK-2) CK-MB (CK-2) Rel Index Albumin Ur Specific [place] Urine WBC (Auto) Digoxin Salicylates Acetaminophen 06/19/19 06/19/19 06/19/19 12:40 14:14 14:14 WBC Hgb MCH RDW Plt Count [place] % (Auto) Lymph # Seg Neutrophils % Seg Neuts % (Manual) Lymphocytes % (Manual) Seg Neutrophils # Man Lymphocytes # (Manual) Monocytes # (Manual) D-Dimer 1177.30 H ABG pH ABG pO2 ABG HCO3 ABG O2 Saturation ABG Base Excess ABG Hemoglobin Oxyhemoglobin Sodium Potassium Chloride Carbon Dioxide BUN Creatinine Glucose POC Glucose Calcium Magnesium Lactate Dehydrogenase 290 H CK-MB (CK-2) CK-MB (CK-2) Rel Index Albumin Ur Specific [place] 1.032 H Urine WBC (Auto) Digoxin Salicylates Acetaminophen 06/19/19 06/19/19 06/19/19 16:40 17:00 23:50 WBC Hgb MCH RDW Plt Count [place] % (Auto) Lymph # Seg Neutrophils % Seg Neuts % (Manual) Lymphocytes % (Manual) Seg Neutrophils # Man Lymphocytes # (Manual) Monocytes # (Manual) D-Dimer ABG pH ABG pO2 54.2 L ABG HCO3 32.1 H ABG O2 Saturation 87.8 L ABG Base Excess 6.3 H ABG Hemoglobin 11.2 L Oxyhemoglobin 85.9 L Sodium Potassium Chloride Carbon Dioxide BUN Creatinine Glucose POC Glucose 137 H 148 H Calcium Magnesium Lactate Dehydrogenase CK-MB (CK-2) CK-MB (CK-2) Rel Index Albumin Ur Specific [place] Urine WBC (Auto) Digoxin Salicylates Acetaminophen 06/20/19 06/20/19 06/20/19 05:14 05:30 05:40 WBC 16.4 H Hgb MCH 25 L RDW 18.3 H Plt Count 79 L [place] % (Auto) Lymph # Seg Neutrophils % Seg Neuts % (Manual) Lymphocytes % (Manual) Seg Neutrophils # Man Lymphocytes # (Manual) Monocytes # (Manual) D-Dimer ABG pH ABG pO2 63.4 L ABG HCO3 32.9 H ABG O2 Saturation 91.8 L ABG Base Excess 6.2 H ABG Hemoglobin 10.4 L Oxyhemoglobin 89.7 L Sodium Potassium Chloride Carbon Dioxide BUN Creatinine Glucose POC Glucose 164 H Calcium Magnesium Lactate Dehydrogenase CK-MB (CK-2) CK-MB (CK-2) Rel Index Albumin Ur Specific [place] Urine WBC (Auto) Digoxin Salicylates Acetaminophen 06/20/19 06/20/19 06/20/19 05:40 12:35 18:32 WBC Hgb MCH RDW Plt Count [place] % (Auto) Lymph # Seg Neutrophils % Seg Neuts % (Manual) Lymphocytes % (Manual) Seg Neutrophils # Man Lymphocytes # (Manual) Monocytes # (Manual) D-Dimer ABG pH ABG pO2 ABG HCO3 ABG O2 Saturation ABG Base Excess ABG Hemoglobin Oxyhemoglobin Sodium Potassium Chloride Carbon Dioxide 31 H BUN 25 H Creatinine 0.3 L Glucose 150 H POC Glucose 162 H 159 H Calcium Magnesium Lactate Dehydrogenase CK-MB (CK-2) CK-MB (CK-2) Rel Index Albumin Ur Specific [place] Urine WBC (Auto) Digoxin Salicylates Acetaminophen 06/21/19 06/21/19 06/21/19 00:12 04:58 04:58 WBC 13.9 H Hgb 9.7 L MCH 25 L RDW 17.9 H Plt Count 85 L [place] % (Auto) Lymph # Seg Neutrophils % Seg Neuts % (Manual) Lymphocytes % (Manual) Seg Neutrophils # Man Lymphocytes # (Manual) Monocytes # (Manual) D-Dimer ABG pH ABG pO2 ABG HCO3 ABG O2 Saturation ABG Base Excess ABG Hemoglobin Oxyhemoglobin Sodium Potassium Chloride Carbon Dioxide 31 H BUN 23 H Creatinine 0.3 L Glucose 142 H POC Glucose 144 H Calcium Magnesium Lactate Dehydrogenase CK-MB (CK-2) CK-MB (CK-2) Rel Index Albumin Ur Specific [place] Urine WBC (Auto) Digoxin Salicylates Acetaminophen 06/21/19 06/21/19 06/21/19 05:42 12:43 23:17 WBC Hgb MCH RDW Plt Count [place] % (Auto) Lymph # Seg Neutrophils % Seg Neuts % (Manual) Lymphocytes % (Manual) Seg Neutrophils # Man Lymphocytes # (Manual) Monocytes # (Manual) D-Dimer ABG pH ABG pO2 ABG HCO3 ABG O2 Saturation ABG Base Excess ABG Hemoglobin Oxyhemoglobin Sodium Potassium Chloride Carbon Dioxide BUN Creatinine Glucose POC Glucose 137 H 118 H 141 H Calcium Magnesium Lactate Dehydrogenase CK-MB (CK-2) CK-MB (CK-2) Rel Index Albumin Ur Specific [place] Urine WBC (Auto) Digoxin Salicylates Acetaminophen 06/22/19 06/22/19 06/22/19 05:28 12:11 18:27 WBC Hgb MCH RDW Plt Count [place] % (Auto) Lymph # Seg Neutrophils % Seg Neuts % (Manual) Lymphocytes % (Manual) Seg Neutrophils # Man Lymphocytes # (Manual) Monocytes # (Manual) D-Dimer ABG pH ABG pO2 ABG HCO3 ABG O2 Saturation ABG Base Excess ABG Hemoglobin Oxyhemoglobin Sodium Potassium Chloride Carbon Dioxide BUN Creatinine Glucose POC Glucose 144 H 138 H 169 H Calcium Magnesium Lactate Dehydrogenase CK-MB (CK-2) CK-MB (CK-2) Rel Index Albumin Ur Specific [place] Urine WBC (Auto) Digoxin Salicylates Acetaminophen 06/23/19 06/23/19 06/23/19 00:12 05:05 05:05 WBC 11.5 H Hgb MCH 25 L RDW 17.5 H Plt Count 98 L [place] % (Auto) Lymph # Seg Neutrophils % Seg Neuts % (Manual) 88.0 H Lymphocytes % (Manual) 4.0 L Seg Neutrophils # Man 10.1 H Lymphocytes # (Manual) 0.5 L Monocytes # (Manual) D-Dimer ABG pH ABG pO2 ABG HCO3 ABG O2 Saturation ABG Base Excess ABG Hemoglobin Oxyhemoglobin Sodium 133 L Potassium 5.3 H Chloride 95.5 L Carbon Dioxide BUN 24 H Creatinine 0.3 L Glucose 168 H POC Glucose 154 H Calcium Magnesium 2.60 H Lactate Dehydrogenase CK-MB (CK-2) CK-MB (CK-2) Rel Index Albumin Ur Specific [place] Urine WBC (Auto) Digoxin Salicylates Acetaminophen 06/23/19 06/23/19 06/23/19 05:15 08:50 12:00 WBC Hgb MCH RDW Plt Count [place] % (Auto) Lymph # Seg Neutrophils % Seg Neuts % (Manual) Lymphocytes % (Manual) Seg Neutrophils # Man Lymphocytes # (Manual) Monocytes # (Manual) D-Dimer ABG pH ABG pO2 56.9 L ABG HCO3 33.2 H ABG O2 Saturation 88.0 L ABG Base Excess 7.0 H ABG Hemoglobin 9.9 L Oxyhemoglobin 86.4 L Sodium Potassium Chloride Carbon Dioxide BUN Creatinine Glucose POC Glucose 174 H 168 H Calcium Magnesium Lactate Dehydrogenase CK-MB (CK-2) CK-MB (CK-2) Rel Index Albumin Ur Specific [place] Urine WBC (Auto) Digoxin Salicylates Acetaminophen 06/23/19 06/23/19 06/24/19 17:54 23:55 04:41 WBC Hgb MCH RDW Plt Count [place] % (Auto) Lymph # Seg Neutrophils % Seg Neuts % (Manual) Lymphocytes % (Manual) Seg Neutrophils # Man Lymphocytes # (Manual) Monocytes # (Manual) D-Dimer ABG pH ABG pO2 ABG HCO3 ABG O2 Saturation ABG Base Excess ABG Hemoglobin Oxyhemoglobin Sodium Potassium Chloride Carbon Dioxide BUN Creatinine Glucose POC Glucose 146 H 145 H Calcium Magnesium Lactate Dehydrogenase CK-MB (CK-2) CK-MB (CK-2) Rel Index Albumin Ur Specific [place] Urine WBC (Auto) Digoxin 0.5 L Salicylates Acetaminophen 06/24/19 06/24/19 06/24/19 05:53 12:01 16:55 WBC Hgb MCH RDW Plt Count [place] % (Auto) Lymph # Seg Neutrophils % Seg Neuts % (Manual) Lymphocytes % (Manual) Seg Neutrophils # Man Lymphocytes # (Manual) Monocytes # (Manual) D-Dimer ABG pH ABG pO2 ABG HCO3 ABG O2 Saturation ABG Base Excess ABG Hemoglobin Oxyhemoglobin Sodium Potassium Chloride Carbon Dioxide BUN Creatinine Glucose POC Glucose 184 H 178 H 152 H Calcium Magnesium Lactate Dehydrogenase CK-MB (CK-2) CK-MB (CK-2) Rel Index Albumin Ur Specific [place] Urine WBC (Auto) Digoxin Salicylates Acetaminophen 06/25/19 06/25/19 06/25/19 00:10 04:37 04:38 WBC 17.9 H Hgb MCH 25 L RDW 18.3 H Plt Count 124 L [place] % (Auto) Lymph # Seg Neutrophils % Seg Neuts % (Manual) 94.0 H Lymphocytes % (Manual) 1.0 L Seg Neutrophils # Man 16.8 H Lymphocytes # (Manual) 0.2 L Monocytes # (Manual) 0.9 H D-Dimer ABG pH ABG pO2 62.7 L ABG HCO3 33.0 H ABG O2 Saturation 91.8 L ABG Base Excess 7.8 H ABG Hemoglobin 10.0 L Oxyhemoglobin 90.2 L Sodium Potassium Chloride Carbon Dioxide BUN Creatinine Glucose POC Glucose 145 H Calcium Magnesium Lactate Dehydrogenase CK-MB (CK-2) CK-MB (CK-2) Rel Index Albumin Ur Specific [place] Urine WBC (Auto) Digoxin Salicylates Acetaminophen 06/25/19 06/25/19 06/25/19 04:38 05:40 12:45 WBC Hgb MCH RDW Plt Count [place] % (Auto) Lymph # Seg Neutrophils % Seg Neuts % (Manual) Lymphocytes % (Manual) Seg Neutrophils # Man Lymphocytes # (Manual) Monocytes # (Manual) D-Dimer ABG pH ABG pO2 ABG HCO3 ABG O2 Saturation ABG Base Excess ABG Hemoglobin Oxyhemoglobin Sodium Potassium Chloride 95.4 L Carbon Dioxide 31 H BUN 22 H Creatinine 0.3 L Glucose 126 H POC Glucose 128 H 169 H Calcium Magnesium Lactate Dehydrogenase CK-MB (CK-2) CK-MB (CK-2) Rel Index Albumin Ur Specific [place] Urine WBC (Auto) Digoxin Salicylates Acetaminophen 06/25/19 06/26/19 06/26/19 16:57 00:30 05:22 WBC Hgb MCH RDW Plt Count [place] % (Auto) Lymph # Seg Neutrophils % Seg Neuts % (Manual) Lymphocytes % (Manual) Seg Neutrophils # Man Lymphocytes # (Manual) Monocytes # (Manual) D-Dimer ABG pH ABG pO2 ABG HCO3 ABG O2 Saturation ABG Base Excess ABG Hemoglobin Oxyhemoglobin Sodium Potassium Chloride Carbon Dioxide BUN Creatinine Glucose POC Glucose 130 H 167 H 155 H Calcium Magnesium Lactate Dehydrogenase CK-MB (CK-2) CK-MB (CK-2) Rel Index Albumin Ur Specific [place] Urine WBC (Auto) Digoxin Salicylates Acetaminophen 06/26/19 06/26/19 06/27/19 12:02 23:57 05:54 WBC Hgb MCH RDW Plt Count [place] % (Auto) Lymph # Seg Neutrophils % Seg Neuts % (Manual) Lymphocytes % (Manual) Seg Neutrophils # Man Lymphocytes # (Manual) Monocytes # (Manual) D-Dimer ABG pH ABG pO2 ABG HCO3 ABG O2 Saturation ABG Base Excess ABG Hemoglobin Oxyhemoglobin Sodium Potassium Chloride Carbon Dioxide BUN Creatinine Glucose POC Glucose 130 H 155 H 152 H Calcium Magnesium Lactate Dehydrogenase CK-MB (CK-2) CK-MB (CK-2) Rel Index Albumin Ur Specific [place] Urine WBC (Auto) Digoxin Salicylates Acetaminophen 06/27/19 06/27/19 06/27/19 12:09 13:41 13:41 WBC 15.0 H Hgb 10.0 L MCH 25 L RDW 17.9 H Plt Count 114 L [place] % (Auto) Lymph # Seg Neutrophils % Seg Neuts % (Manual) 98.0 H Lymphocytes % (Manual) 0 L Seg Neutrophils # Man 14.7 H Lymphocytes # (Manual) 0.0 L Monocytes # (Manual) D-Dimer ABG pH ABG pO2 ABG HCO3 ABG O2 Saturation ABG Base Excess ABG Hemoglobin Oxyhemoglobin Sodium 135 L Potassium Chloride 96.5 L Carbon Dioxide BUN 21 H Creatinine 0.2 L Glucose 161 H POC Glucose 150 H Calcium Magnesium Lactate Dehydrogenase CK-MB (CK-2) CK-MB (CK-2) Rel Index Albumin Ur Specific [place] Urine WBC (Auto) Digoxin Salicylates Acetaminophen Allied health notes reviewed: nursing
--- NOTE | 2019-06-27 19:11 | Progress Note ---
Assessment and Plan Assessment and plan: --COVID-19 was ruled out. Patient remains intubated on vent, unable to wean --Ac. hypoxic,hypercapnic resp. failure: On vent > 96 hours Wean as tolerated and extubate, nebs, steroids, supportive care Pulmonary following --sepsis/pneumonia/sputum Pseudomonas 06/11/2019; present on admission ID following , continue cefepime Sputum cultures again positive Pseudomonas on 06/19/2019 --Left lung basilar density; pneumonia Sputum cultures positive for Pseudomonas Continue cefepime --Paroxysmal A. fib/flutter; RVR On amiodarone, digoxin and Cardizem Closely monitor, cardiology following-digoxin adjusted to 0.125 mg every other day per cardiology Changed amiodarone to 100 mg daily No chronic anticoagulation due to history of GI bleed --History of coronary artery disease/CHF Low-dose Lasix, continue other cardiac meds --Hypernatremia; resolved monitor sodium levels --History of depression; Resume antidepressive medications --Ongoing tobacco use; Will compliance counsel smoking cessation when patient is more stable Nicotine patch as needed --Obesity; BMI 32.2 Patient needs weight reduction when medically stable --Thrombocytopenia; HIT antibody negative --Tube feeding diet; per dietary recommendations --DVT prophylaxis; Lovenox --Full CODE STATUS Restraints in place. Patient is critically ill with poor prognosis Closely monitor the patient and adjust management as needed Follow international travel consultant recommendations The high probability of a clinically significant, sudden or life threatening deterioration of the [respiratory, CVS] system(s) required my full and direct attention, intervention and personal management. The aggregate critical care time was [31] minutes. This time is in addition to time spent performing reported procedures but includes the following: [x] Data Review and interpretation [x] Patient assessment and monitoring of vital signs [x] Documentation [x] Medication orders and management Critical care time 35 minutes History Interval history: Patient seen and examined at the bedside in ICU Patient's chart and medications reviewed Remains intubated on vent Vital signs noted Hospitalist Physical - Constitutional Vitals: Temp Pulse Resp BP Pulse Ox 98.8 F 84 13 135/69 91 06/27/19 16:00 06/27/19 18:00 06/27/19 18:00 06/27/19 18:00 06/27/19 18:00 General appearance: Present: no acute distress, well-nourished, obese, other (On vent) - EENT Eyes: Present: PERRL - Neck Neck: Present: supple, normal ROM - Respiratory Respiratory effort: normal Respiratory: bilateral: diminished, rhonchi, negative: rales, wheezing - Cardiovascular Rhythm: regular Heart Sounds: Present: S1 & S2 - Extremities Extremities: no ischemia, No edema - Abdominal General gastrointestinal: soft, non-tender, non-distended, normal bowel sounds - Integumentary Integumentary: Present: clear, warm - Psychiatric Psychiatric: other (On vent) - Neurologic Neurologic: other (On vent) Results - Labs CBC & Chem 7: 06/27/19 13:41 06/27/19 13:41 Labs: Laboratory Last Values WBC 15.0 K/mm3 (4.5-11.0) H 06/27/19 13:41 RBC 4.04 M/mm3 (3.65-5.03) 06/27/19 13:41 Hgb 10.0 gm/dl (10.1-14.3) L 06/27/19 13:41 Hct 32.9 % (30.3-42.9) 06/27/19 13:41 MCV 82 fl (79-97) 06/27/19 13:41 MCH 25 pg (28-32) L 06/27/19 13:41 MCHC 30 % (30-34) 06/27/19 13:41 RDW 17.9 % (13.2-15.2) H 06/27/19 13:41 Plt Count 114 K/mm3 (140-440) L 06/27/19 13:41 Lymph % (Auto) 13.7 % (13.4-35.0) 06/11/19 18:03 [place] % (Auto) 10.3 % (0.0-7.3) H 06/11/19 18:03 Eos % (Auto) 0.8 % (0.0-4.3) 06/11/19 18:03 Baso % (Auto) 0.8 % (0.0-1.8) 06/11/19 18:03 Lymph # 1.1 K/mm3 (1.2-5.4) L 06/11/19 18:03 [place] # 0.8 K/mm3 (0.0-0.8) 06/11/19 18:03 Eos # 0.1 K/mm3 (0.0-0.4) 06/11/19 18:03 Baso # 0.1 K/mm3 (0.0-0.1) 06/11/19 18:03 Add Manual Diff Complete 06/27/19 13:41 Total Counted 100 06/27/19 13:41 Seg Neutrophils % Pharmacy Technician Inpatient 06/27/19 13:41 Seg Neuts % (Manual) 98.0 % (40.0-70.0) H 06/27/19 13:41 Band Neutrophils % 0 % 06/27/19 13:41 Lymphocytes % (Manual) 0 % (13.4-35.0) L 06/27/19 13:41 Reactive Lymphs % (Man) 0 % 06/27/19 13:41 Monocytes % (Manual) 2.0 % (0.0-7.3) 06/27/19 13:41 Eosinophils % (Manual) 0 % (0.0-4.3) 06/27/19 13:41 Basophils % (Manual) 0 % (0.0-1.8) 06/27/19 13:41 Metamyelocytes % 0 % 06/27/19 13:41 Myelocytes % 0 % 06/27/19 13:41 Promyelocytes % 0 % 06/27/19 13:41 Blast Cells % 0 % 06/27/19 13:41 Nucleated RBC % Not Reportable 06/27/19 13:41 Seg Neutrophils # 6.0 K/mm3 (1.8-7.7) 06/11/19 18:03 Seg Neutrophils # Man 14.7 K/mm3 (1.8-7.7) H 06/27/19 13:41 Band Neutrophils # 0.0 K/mm3 06/27/19 13:41 Lymphocytes # (Manual) 0.0 K/mm3 (1.2-5.4) L 06/27/19 13:41 Abs React Lymphs (Man) 0.0 K/mm3 06/27/19 13:41 Monocytes # (Manual) 0.3 K/mm3 (0.0-0.8) 06/27/19 13:41 Eosinophils # (Manual) 0.0 K/mm3 (0.0-0.4) 06/27/19 13:41 Basophils # (Manual) 0.0 K/mm3 (0.0-0.1) 06/27/19 13:41 Metamyelocytes # 0.0 K/mm3 06/27/19 13:41 Myelocytes # 0.0 K/mm3 06/27/19 13:41 Promyelocytes # 0.0 K/mm3 06/27/19 13:41 Blast Cells # 0.0 K/mm3 06/27/19 13:41 WBC Morphology Not Reportable 06/27/19 13:41 Hypersegmented Neuts Not Reportable 06/27/19 13:41 Hyposegmented Neuts Not Reportable 06/27/19 13:41 Hypogranular Neuts Not Reportable 06/27/19 13:41 Smudge Cells Not Reportable 06/27/19 13:41 Toxic Granulation Not Reportable 06/27/19 13:41 Toxic Vacuolation Not Reportable 06/27/19 13:41 Dohle Bodies Not Reportable 06/27/19 13:41 Pelger-Huet Anomaly Not Reportable 06/27/19 13:41 Neha Rods Not Reportable 06/27/19 13:41 Platelet Estimate Consistent w auto 06/27/19 13:41 Clumped Platelets Not Reportable 06/27/19 13:41 Plt Clumps, EDTA Not Reportable 06/27/19 13:41 Large Platelets Not Reportable 06/27/19 13:41 Giant Platelets Not Reportable 06/27/19 13:41 Platelet Satelliting Not Reportable 06/27/19 13:41 Plt Morphology Comment Not Reportable 06/27/19 13:41 RBC Morphology Not Reportable 06/27/19 13:41 Dimorphic RBCs Not Reportable 06/27/19 13:41 Polychromasia Not Reportable 06/27/19 13:41 Hypochromasia Few 06/27/19 13:41 Poikilocytosis Not Reportable 06/27/19 13:41 Anisocytosis Few 06/27/19 13:41 Microcytosis Not Reportable 06/27/19 13:41 Macrocytosis Few 06/27/19 13:41 Spherocytes Not Reportable 06/27/19 13:41 Pappenheimer Bodies Not Reportable 06/27/19 13:41 Sickle Cells Not Reportable 06/27/19 13:41 Target Cells Not Reportable 06/27/19 13:41 Tear Drop Cells Not Reportable 06/27/19 13:41 Ovalocytes Not Reportable 06/27/19 13:41 Stomatocytes Rare 06/25/19 04:38 Helmet Cells Not Reportable 06/27/19 13:41 [place] Bodies Not Reportable 06/27/19 13:41 [place] Rings Not Reportable 06/27/19 13:41 [place]ien Cells Not Reportable 06/27/19 13:41 Bite Cells Not Reportable 06/27/19 13:41 Crenated Cell Not Reportable 06/27/19 13:41 Elliptocytes Not Reportable 06/27/19 13:41 Acanthocytes (Spur) Not Reportable 06/27/19 13:41 Rouleaux Not Reportable 06/27/19 13:41 Hemoglobin C Crystals Not Reportable 06/27/19 13:41 Schistocytes Not Reportable 06/27/19 13:41 Malaria parasites Not Reportable 06/27/19 13:41 [place]an Bodies Not Reportable 06/27/19 13:41 Hem Pathologist Commnt No 06/27/19 13:41 PT 13.0 Sec. (12.2-14.9) 06/11/19 18:03 INR 0.97 (0.87-1.13) 06/11/19 18:03 D-Dimer 1177.30 ng/mlDDU (0-234) H 06/19/19 14:14 Heparin Anti-Xa, Unfract Negative (Negative) 06/17/19 22:48 ABG pH 7.440 pH Units (7.350-7.450) 06/25/19 04:37 ABG pCO2 49.8 mm Hg 06/25/19 04:37 ABG pO2 62.7 mm Hg (80.0-90.0) L 06/25/19 04:37 ABG HCO3 33.0 mmol/L (20.0-26.0) H 06/25/19 04:37 ABG O2 Saturation 91.8 % (95.0-99.0) L 06/25/19 04:37 ABG O2 Content 12.7 (0.0-44) 06/25/19 04:37 ABG Base Excess 7.8 mmol/L (-2.0-3.0) H 06/25/19 04:37 ABG Hemoglobin 10.0 gm/dl (12.0-16.0) L 06/25/19 04:37 ABG Carboxyhemoglobin 1.4 % (0.0-5.0) 06/25/19 04:37 ABG Methemoglobin 0.3 % (0.0-1.5) 06/25/19 04:37 Oxyhemoglobin 90.2 % (95.0-99.0) L 06/25/19 04:37 FiO2 40 % 06/25/19 04:37 Sodium 135 mmol/L (137-145) L 06/27/19 13:41 Potassium 4.7 mmol/L (3.6-5.0) 06/27/19 13:41 Chloride 96.5 mmol/L (98-107) L 06/27/19 13:41 Carbon Dioxide 29 mmol/L (22-30) 06/27/19 13:41 Anion Gap 14 mmol/L 06/27/19 13:41 BUN 21 mg/dL (7-17) H 06/27/19 13:41 Creatinine 0.2 mg/dL (0.7-1.2) L 06/27/19 13:41 Estimated GFR > 60 ml/min 06/27/19 13:41 BUN/Creatinine Ratio 105 % 06/27/19 13:41 Glucose 161 mg/dL (65-100) H 06/27/19 13:41 POC Glucose 156 (70-105) H 06/27/19 18:03 Calcium 8.5 mg/dL (8.4-10.2) 06/27/19 13:41 Phosphorus 4.50 mg/dL (2.5-4.5) 06/15/19 05:08 Magnesium 2.20 mg/dL (1.7-2.3) 06/25/19 04:38 Ferritin 43.6 ng/mL (13.0-400.0) 06/19/19 14:14 Total Bilirubin 0.30 mg/dL (0.1-1.2) 06/11/19 18:03 AST 14 units/L (5-40) 06/11/19 18:03 ALT 8 units/L (7-56) 06/11/19 18:03 Alkaline Phosphatase 85 units/L (35-129) 06/11/19 18:03 Lactate Dehydrogenase 290 units/L (91-180) H 06/19/19 14:14 Total Creatine Kinase 74 units/L (30-135) 06/12/19 05:09 CK-MB (CK-2) 4.0 ng/mL (0.0-4.0) 06/12/19 05:09 CK-MB (CK-2) Rel Index 5.4 (0-4) H 06/12/19 05:09 Troponin T < 0.010 ng/mL (0.00-0.029) 06/12/19 05:09 C-Reactive Protein 0.10 mg/dL (0.00-1.30) 06/19/19 14:14 Total Protein 6.4 g/dL (6.3-8.2) 06/11/19 18:03 Albumin 3.5 g/dL (3.9-5) L 06/11/19 18:03 Albumin/Globulin Ratio 1.2 % 06/11/19 18:03 Procalcitonin < 0.05 ng/mL (<0.15) 06/19/19 14:14 Urine Color Yellow (Yellow) 06/19/19 12:40 Urine Turbidity Clear (Clear) 06/19/19 12:40 Urine pH 5.0 (5.0-7.0) 06/19/19 12:40 Ur Specific [place] 1.032 (1.003-1.030) H 06/19/19 12:40 Urine Protein 30 mg/dl mg/dL (Negative) 06/19/19 12:40 Urine Glucose (UA) Neg mg/dL (Negative) 06/19/19 12:40 Urine Ketones Neg mg/dL (Negative) 06/19/19 12:40 Urine Blood Sm (Negative) 06/19/19 12:40 Urine Nitrite Neg (Negative) 06/19/19 12:40 Urine Bilirubin Neg (Negative) 06/19/19 12:40 Urine Urobilinogen < 2.0 mg/dL (<2.0) 06/19/19 12:40 Ur Leukocyte Esterase Neg (Negative) 06/19/19 12:40 Urine WBC (Auto) 4.0 /HPF (0.0-6.0) 06/19/19 12:40 Urine RBC (Auto) 44.0 /HPF (0.0-6.0) 06/19/19 12:40 Urine Bacteria (Auto) 1+ /HPF (Negative) 06/19/19 12:40 Hyaline Casts 15 /LPF 06/19/19 12:40 Urine Mucus Few /HPF 06/19/19 12:40 Urine Yeast (Budding) Few /HPF 06/12/19 02:04 Digoxin 0.5 ng/mL (0.9-2.0) L 06/24/19 04:41 Salicylates 1.0 mg/dL (2.8-20.0) L 06/11/19 18:03 Acetaminophen < 5.0 ug/mL (10.0-30.0) L 06/11/19 18:03 Heparin-induced Plt Ab Negative (Negative) 06/17/19 22:48 UF Heparin High Dose 3 % Release 06/17/19 22:48 ESSIE UFH Low Dose 0.1 2 % Release 06/17/19 22:48 ESSIE UFH Low Dose 0.5 1 % Release 06/17/19 22:48 Coronavirus (PCR) Negative (Negative) 06/19/19 10:33 Blood Type O POSITIVE 06/19/19 10:08 Antibody Screen Negative 06/19/19 10:08 Harley/IV: Voiding Method Indwelling Catheter IV Catheter Type [Right Foot] INT / Saline Lock IV Catheter Type [Right Upper INT / Saline Lock arm] IV Catheter Type [Left Peripheral IV Antecubital] IV Catheter Type [Right Wrist] Peripheral IV IV Catheter Type [Right Hand] Peripheral IV Active Medications - Current Medications Current Medications: Generic Name Dose Route Start Last Admin Trade Name Freq PRN Reason Stop Dose Admin Acetaminophen 650 mg 06/11/19 22:48 06/20/19 08:03 Tylenol PO 650 mg Q4H PRN Administration Pain MILD(1-3)/Fever >100.5/PRAJAPATI Albuterol 2.5 mg 06/14/19 08:20 Proventil IH Q4HRT PRN Shortness Of Breath Albuterol/Ipratropium 1 ampul 06/14/19 14:00 06/27/19 09:22 Duoneb *Not For Prn Use* IH 1 ampul TIDRT DOMINICK Administration Alprazolam 0.25 mg 06/13/19 10:23 06/22/19 09:00 Xanax PO 0.25 mg Q8H PRN Administration Anxiety Amiodarone HCl 100 mg 06/22/19 10:00 06/27/19 09:24 Cordarone PO 100 mg QDAY DOMINICK Administration Lipase/Protease/Amylase 1 each 06/13/19 17:[address] 10,500 Unit FEEDTUBE PRN PRN For Clogged Feeding Tube Arformoterol Tartrate 15 mcg 06/14/19 20:00 06/27/19 09:22 Brovana Nebu IH 15 mcg Q12HRT DOMINICK Administration Budesonide 0.5 mg 06/14/19 20:00 06/27/19 09:22 Pulmicort IH 0.5 mg Q12HRT DOMINICK Administration Dextrose 50 ml 06/11/19 22:48 D50w (25gm) Syringe IV Q30MIN PRN Hypoglycemia Protocol Diltiazem HCl 30 mg 06/16/19 11:30 06/27/19 13:43 Cardizem PO 30 mg Q8HR DOMINICK Administration Docusate Sodium 100 mg 06/18/19 11:00 06/27/19 09:24 Colace PO 100 mg BID DOMINICK Administration Hydralazine HCl 10 mg 06/27/19 09:22 Apresoline IV Q4HR PRN Hypertension Hydrophilic Ointment 1 applic 06/11/19 17:44 Vaseline Lip Therapy TP Q2HR PRN Dry Lips Fentanyl Citrate 2,000 mcg in 100 mls @ 3.742 mls/hr 06/11/19 18:00 06/27/19 08:34 Fentanyl Drip Premix IV 1 mcg/kg/hr TITR DOMINICK 3.742 mls/hr Administration Protocol 1 MCG/KG/HR Cefepime HCl 1 gm in 100 mls @ 200 mls/hr 06/14/19 14:00 06/27/19 13:42 Cefepime/Ns 1 Gm/100 Ml IV 06/28/19 06:29 200 mls/hr Q8HR DOMINICK Administration Protocol Insulin Human Lispro 0 unit 06/12/19 00:00 06/27/19 17:59 Humalog SUB-Q 2 unit Q6HR DOMINICK Administration Protocol Lansoprazole 30 mg 06/13/19 11:00 06/27/19 09:24 Prevacid Solutab FEEDTUBE 30 mg QDAY DOMINICK Administration Lorazepam 2 mg 06/21/19 14:45 06/23/19 21:42 Ativan IV 2 mg Q6H PRN Administration Agitation Magnesium Hydroxide 30 ml 06/22/19 09:51 06/27/19 13:47 Milk Of Magnesia PO 30 ml QDAY PRN Administration Constipation Methylprednisolone Sodium Succinate 40 mg 06/23/19 12:00 06/27/19 17:59 Solu-Medrol IV 40 mg Q6HR DOMINICK Administration Metoprolol Tartrate 2.5 mg 06/19/19 11:11 06/19/19 11:48 Metoprolol IV 2.5 mg Q4H PRN Administration HR>130 Multi-Ingred Cream/Lotion/Oil/Oint 1 applic 06/11/19 17:44 Artificial Tears Ophth Oint OU Q4HR PRN Dry Eye(s) Ondansetron HCl 4 mg 06/11/19 22:48 Zofran IV Q8H PRN Nausea And Vomiting Polyethylene Glycol 17 gm 06/20/19 14:00 06/21/19 16:05 Miralax 3350 PO 17 gm BID PRN Administration Constipation Quetiapine Fumarate 300 mg 06/13/19 11:00 06/27/19 09:24 Seroquel PO 300 mg BID DOMINICK Administration Simple Syrup 15 ml 06/13/19 17:52 Simple Syrup FEEDTUBE PRN PRN Hypoglycemia Simple Syrup 30 ml 06/13/19 17:52 Simple Syrup FEEDTUBE PRN PRN Hypoglycemia Sodium Bicarbonate 325 mg 06/13/19 17:52 Sodium Bicarbonate FEEDTUBE PRN PRN For Clogged Feeding Tube Sodium Chloride 10 ml 06/12/19 10:00 06/27/19 09:25 Sodium Chloride Flush Syringe 10 Ml IV 10 ml BID DOMINICK Administration Sodium Chloride 10 ml 06/11/19 22:48 06/18/19 21:06 Sodium Chloride Flush Syringe 10 Ml IV 10 ml PRN PRN Administration LINE FLUSH Venlafaxine HCl 75 mg 06/13/19 14:00 06/27/19 14:35 Effexor PO 75 mg TID DOMINICK Administration Nutrition/Malnutrition Assess - Dietary Evaluation Nutrition/Malnutrition Findings: Nutrition Notes Start: 06/12/19 11:05 Freq: Status: Active Protocol: Document 06/25/19 13:25 LM (Rec: 06/25/19 13:28 LM -[email or web address]) Nutrition Notes Initial or Follow up Reassessment Current Diagnosis COPD,Coronary Artery Disease, Hypertension,Heart Failure, Respiratory Failure Other Pertinent Diagnosis COPD exacerbation Current Diet TF - Promote at 60ml/hr Labs/Tests reviewed Pertinent Medications reviewed Height 5 ft Weight 76.204 kg [place] Body Weight (kg) 45.45 BMI 32.8 Weight change and time frame wt change noted Subjective/Other Information TF running at goal and pt is tolerating. Percent of energy/protein needs met: 96%/99% Burn Absent Trauma Absent Current % PO Negligible Minimum of two criteria No #1 Nutrition Diagnosis Inadequate oral intake Diagnosis Progress(for reassessment Continues documentation) Is patient on ventilator? Yes Is Patient Ambulatory and/or Out of Bed No REE-([facility]-confined to bed) 1503.180 Calculation Used for Recommendations [facility] Additional Notes Pro needs 2g/kg IBW: 91g/day 1ml/kcal Nutrition Intervention Change Diet Order: Continue TF Nutrition Support: Promote 1.0 at 60ml/hr Flush 50ml q4h Kcal 1,440 Protein (gm) 90 Fluid (mL) 1,208 Goal #1 TF tolerance Goal #2 Meet at least 75% of energy and protein needs Anticipated Discharge Needs: Unable to identify at this time Follow-Up By: 06/29/19 Additional Comments F/U for TF tolerance, wt
[2019-06-27] MEDS: hydrALAZINE 20 MG/1 ML INJ IV PRN (19:20)
[2019-06-28] MEDS: INSULIN LISPRO 100 UNIT/ML SUB-Q SCH ×4 (00:47→18:32)
[2019-06-28 01:22] LABS: Hematocrit 35.7 % (30.3-42.9); Hemoglobin 11.3 gm/dl (10.1-14.3); Mean Corpuscular HGB Conc 32 % (30-34); Mean Corpuscular Volume 80 fl (79-97); Platelet Count 130 K/mm3 (140-440); Red Blood Count 4.46 M/mm3 (3.65-5.03); Red Cell Distribution Width 18.2 % (13.2-15.2)
[2019-06-28 01:42] LABS: BUN/Creatinine Ratio 105; Blood Urea Nitrogen 21 mg/dL (7-17); Calcium 9.1 mg/dL (8.4-10.2); Hemolysis Index 6
--- NOTE | 2019-06-28 02:58 | XRay Report ---
CHEST - 1 VIEW INDICATION: respiratory failure COMPARISON: 06/23/2019 FINDINGS: Support devices: Stable support device positioning. Heart: Stable cardiomediastinal silhouette. Lungs/pleura: Persistent mild edema. Additional findings: None. IMPRESSION: Unchanged exam. Signer Name: Geoff Lyman MD Signed: 06/28/2019 2:54 AM Workstation Name: [id number]
[2019-06-28 05:09] LABS: Basophils % (Manual) 0 % (0.0-1.8); Eosinophils % (Manual) 0 % (0.0-4.3); Total Cells Counted 100
[2019-06-28 05:10] LABS: Anisocytosis 1+; Hypochromasia Few; Platelet Estimate Consistent w Auto
[2019-06-28] MEDS: hydrALAZINE 20 MG/1 ML INJ IV PRN (06:13)
[2019-06-28] MEDS: dilTIAZem 30 MG TAB PO SCH ×3 (06:14→21:13)
[2019-06-28] MEDS: methylPREDNISolone Sod Succinate 40 MG/1 ML INJ IV SCH ×3 (06:14→18:32)
[2019-06-28] MEDS: fentaNYL DRIP Premix 2,000 MCG/100 ML BAG IV SCH (06:26)
[2019-06-28] MEDS: IPRATROPIUM/ALBUTEROL SULFATE 3 ML AMPUL.NEB IH SCH ×3 (07:42→21:32)
[2019-06-28] MEDS: ARFORMOTEROL 15 MCG/2 ML NEBU IH SCH ×2 (07:42→21:32)
[2019-06-28] MEDS: BUDESONIDE 0.5 MG/2 ML NEBU IH SCH ×2 (07:42→21:32)
[2019-06-28] MEDS: VENLAFAXINE 75 MG TAB PO SCH ×3 (08:45→20:03)
[2019-06-28] MEDS: LANSOPRAZOLE 30 MG SOLUTAB FEEDTUBE SCH (09:44)
[2019-06-28] MEDS: AMIODARONE 200 MG TAB PO SCH (09:44)
[2019-06-28] MEDS: DOCUSATE SODIUM 100 MG/10 ML ORAL LIQD PO SCH ×2 (09:46→21:14)
--- NOTE | 2019-06-28 09:48 | Progress Note ---
Assessment and Plan Assessment and plan: --COVID-19 negative Patient remains intubated on vent, unable to wean --Ac. hypoxic,hypercapnic resp. failure: On vent > 96 hours On weaning parameters nebs, steroids, supportive care Wean as tolerated and extubate ,pulmonary following Wrist x-ray today; mild edema 1 dose of Lasix 20 IV advised --sepsis/pneumonia/sputum Pseudomonas 06/11/2019; present on admission ID following , continue cefepime Sputum cultures again positive Pseudomonas on 06/19/2019 --Left lung basilar density; pneumonia Sputum cultures positive for Pseudomonas Continue cefepime ID following --Hypertension; moderate control Continue current antihypertensives and PRN hydralazine --Paroxysmal A. fib/flutter; RVR On amiodarone, digoxin and Cardizem Closely monitor, cardiology following-digoxin adjusted to 0.125 mg every other day per cardiology Changed amiodarone to 100 mg daily No chronic anticoagulation due to history of GI bleed --History of coronary artery disease/CHF Low-dose Lasix, continue other cardiac meds --Hypernatremia; resolved monitor sodium levels --History of depression; Resume antidepressive medications --Ongoing tobacco use; Will certified genetic counselor smoking cessation when patient is more stable Nicotine patch as needed --Obesity; BMI 32.2 Patient needs weight reduction when medically stable --Thrombocytopenia; HIT antibody negative --Tube feeding diet; per dietary recommendations --DVT prophylaxis; Lovenox --Full CODE STATUS Restraints in place. Patient is critically ill with poor prognosis Closely monitor the patient and adjust management as needed Follow websphere commerce consultant recommendations The high probability of a clinically significant, sudden or life threatening deterioration of the [respiratory, CVS] system(s) required my full and direct attention, intervention and personal management. The aggregate critical care time was [31] minutes. This time is in addition to time spent performing reported procedures but includes the following: [x] Data Review and interpretation [x] Patient assessment and monitoring of vital signs [x] Documentation [x] Medication orders and management Critical care time 35 minutes Disposition; wean as tolerated and extubate PT OT Discharge planning when medically stable Brief history: 59-year-old female patient with significant history of hypertension GERD depression COPD coronary artery disease CHF was admitted through emergency room with acute hypoxic hypercapnic respiratory failure requiring intubation and ventilatory support. Admitted to ICU evaluated by pulmonary critical, cardiology for A. fib flutter with rapid ventricular rate, started on Cardizem and amiodarone. Not a candidate for anticoagulation due to history of severe GI bleeding. Patient had mild hypotension, improved with holding, Blood pressure and diuretic meds, closely monitor Intubated on vent, wean as tolerated and extubate, Sputum cultures positive for Pseudomonas, on cefepime Wean as tolerated and extubate History Interval history: Patient seen and examined at the bedside this morning Patient is alert and awake, responding appropriately, off sedation On weaning parameters Vital signs reviewed Hospitalist Physical - Constitutional Vitals: Temp Pulse Resp BP Pulse Ox 98.9 F 75 14 124/61 93 06/28/19 08:00 06/28/19 08:30 06/28/19 08:05 06/28/19 08:30 06/28/19 08:30 General appearance: Present: no acute distress, well-nourished, obese, other (On vent, weaning parameters) - EENT Eyes: Present: PERRL, EOM intact - Neck Neck: Present: supple, normal ROM - Respiratory Respiratory effort: normal Respiratory: bilateral: diminished, rhonchi, negative: rales, wheezing - Cardiovascular Rhythm: regular Heart Sounds: Present: S1 & S2 - Extremities Extremities: no ischemia, No edema - Abdominal General gastrointestinal: soft, non-tender, non-distended, normal bowel sounds - Integumentary Integumentary: Present: clear, warm - Psychiatric Psychiatric: appropriate mood/affect, other (Alert and awake) - Neurologic Neurologic: other (On vent) Results - Labs CBC & Chem 7: 06/28/19 00:58 06/28/19 00:58 Labs: Laboratory Last Values WBC 16.2 K/mm3 (4.5-11.0) H 06/28/19 00:58 RBC 4.46 M/mm3 (3.65-5.03) 06/28/19 00:58 Hgb 11.3 gm/dl (10.1-14.3) 06/28/19 00:58 Hct 35.7 % (30.3-42.9) 06/28/19 00:58 MCV 80 fl (79-97) 06/28/19 00:58 MCH 25 pg (28-32) L 06/28/19 00:58 MCHC 32 % (30-34) 06/28/19 00:58 RDW 18.2 % (13.2-15.2) H 06/28/19 00:58 Plt Count 130 K/mm3 (140-440) L 06/28/19 00:58 Lymph % (Auto) 13.7 % (13.4-35.0) 06/11/19 18:03 [place] % (Auto) 10.3 % (0.0-7.3) H 06/11/19 18:03 Eos % (Auto) 0.8 % (0.0-4.3) 06/11/19 18:03 Baso % (Auto) 0.8 % (0.0-1.8) 06/11/19 18:03 Lymph # 1.1 K/mm3 (1.2-5.4) L 06/11/19 18:03 [place] # 0.8 K/mm3 (0.0-0.8) 06/11/19 18:03 Eos # 0.1 K/mm3 (0.0-0.4) 06/11/19 18:03 Baso # 0.1 K/mm3 (0.0-0.1) 06/11/19 18:03 Add Manual Diff Complete 06/28/19 00:58 Total Counted 100 06/28/19 00:58 Seg Neutrophils % Patient Resource Specialist 06/28/19 00:58 Seg Neuts % (Manual) 98.0 % (40.0-70.0) H 06/28/19 00:58 Band Neutrophils % 0 % 06/28/19 00:58 Lymphocytes % (Manual) 0 % (13.4-35.0) L 06/28/19 00:58 Reactive Lymphs % (Man) 0 % 06/28/19 00:58 Monocytes % (Manual) 2.0 % (0.0-7.3) 06/28/19 00:58 Eosinophils % (Manual) 0 % (0.0-4.3) 06/28/19 00:58 Basophils % (Manual) 0 % (0.0-1.8) 06/28/19 00:58 Metamyelocytes % 0 % 06/28/19 00:58 Myelocytes % 0 % 06/28/19 00:58 Promyelocytes % 0 % 06/28/19 00:58 Blast Cells % 0 % 06/28/19 00:58 Nucleated RBC % Not Reportable 06/28/19 00:58 Seg Neutrophils # 6.0 K/mm3 (1.8-7.7) 06/11/19 18:03 Seg Neutrophils # Man 15.9 K/mm3 (1.8-7.7) H 06/28/19 00:58 Band Neutrophils # 0.0 K/mm3 06/28/19 00:58 Lymphocytes # (Manual) 0.0 K/mm3 (1.2-5.4) L 06/28/19 00:58 Abs React Lymphs (Man) 0.0 K/mm3 06/28/19 00:58 Monocytes # (Manual) 0.3 K/mm3 (0.0-0.8) 06/28/19 00:58 Eosinophils # (Manual) 0.0 K/mm3 (0.0-0.4) 06/28/19 00:58 Basophils # (Manual) 0.0 K/mm3 (0.0-0.1) 06/28/19 00:58 Metamyelocytes # 0.0 K/mm3 06/28/19 00:58 Myelocytes # 0.0 K/mm3 06/28/19 00:58 Promyelocytes # 0.0 K/mm3 06/28/19 00:58 Blast Cells # 0.0 K/mm3 06/28/19 00:58 WBC Morphology Not Reportable 06/28/19 00:58 Hypersegmented Neuts Not Reportable 06/28/19 00:58 Hyposegmented Neuts Not Reportable 06/28/19 00:58 Hypogranular Neuts Not Reportable 06/28/19 00:58 Smudge Cells Not Reportable 06/28/19 00:58 Toxic Granulation Not Reportable 06/28/19 00:58 Toxic Vacuolation Not Reportable 06/28/19 00:58 Dohle Bodies Not Reportable 06/28/19 00:58 Pelger-Huet Anomaly Not Reportable 06/28/19 00:58 Neha Rods Not Reportable 06/28/19 00:58 Platelet Estimate Consistent w auto 06/28/19 00:58 Clumped Platelets Not Reportable 06/28/19 00:58 Plt Clumps, EDTA Not Reportable 06/28/19 00:58 Large Platelets Not Reportable 06/28/19 00:58 Giant Platelets Not Reportable 06/28/19 00:58 Platelet Satelliting Not Reportable 06/28/19 00:58 Plt Morphology Comment Not Reportable 06/28/19 00:58 RBC Morphology Not Reportable 06/28/19 00:58 Dimorphic RBCs Not Reportable 06/28/19 00:58 Polychromasia Not Reportable 06/28/19 00:58 Hypochromasia Few 06/28/19 00:58 Poikilocytosis Not Reportable 06/28/19 00:58 Anisocytosis 1+ 06/28/19 00:58 Microcytosis 1+ 06/28/19 00:58 Macrocytosis Not Reportable 06/28/19 00:58 Spherocytes Not Reportable 06/28/19 00:58 Pappenheimer Bodies Not Reportable 06/28/19 00:58 Sickle Cells Not Reportable 06/28/19 00:58 Target Cells Not Reportable 06/28/19 00:58 Tear Drop Cells Not Reportable 06/28/19 00:58 Ovalocytes Not Reportable 06/28/19 00:58 Stomatocytes Rare 06/25/19 04:38 Helmet Cells Not Reportable 06/28/19 00:58 [place] Bodies Not Reportable 06/28/19 00:58 [place] Rings Not Reportable 06/28/19 00:58 Damien Cells Not Reportable 06/28/19 00:58 Bite Cells Not Reportable 06/28/19 00:58 Crenated Cell Not Reportable 06/28/19 00:58 Elliptocytes Not Reportable 06/28/19 00:58 Acanthocytes (Spur) Not Reportable 06/28/19 00:58 Rouleaux Not Reportable 06/28/19 00:58 Hemoglobin C Crystals Not Reportable 06/28/19 00:58 Schistocytes Not Reportable 06/28/19 00:58 Malaria parasites Not Reportable 06/28/19 00:58 Hernan Bodies Not Reportable 06/28/19 00:58 Hem Pathologist Commnt No 06/28/19 00:58 PT 13.0 Sec. (12.2-14.9) 06/11/19 18:03 INR 0.97 (0.87-1.13) 06/11/19 18:03 D-Dimer 1177.30 ng/mlDDU (0-234) H 06/19/19 14:14 Heparin Anti-Xa, Unfract Negative (Negative) 06/17/19 22:48 ABG pH 7.440 pH Units (7.350-7.450) 06/25/19 04:37 ABG pCO2 49.8 mm Hg 06/25/19 04:37 ABG pO2 62.7 mm Hg (80.0-90.0) L 06/25/19 04:37 ABG HCO3 33.0 mmol/L (20.0-26.0) H 06/25/19 04:37 ABG O2 Saturation 91.8 % (95.0-99.0) L 06/25/19 04:37 ABG O2 Content 12.7 (0.0-44) 06/25/19 04:37 ABG Base Excess 7.8 mmol/L (-2.0-3.0) H 06/25/19 04:37 ABG Hemoglobin 10.0 gm/dl (12.0-16.0) L 06/25/19 04:37 ABG Carboxyhemoglobin 1.4 % (0.0-5.0) 06/25/19 04:37 ABG Methemoglobin 0.3 % (0.0-1.5) 06/25/19 04:37 Oxyhemoglobin 90.2 % (95.0-99.0) L 06/25/19 04:37 FiO2 40 % 06/25/19 04:37 Sodium 137 mmol/L (137-145) 06/28/19 00:58 Potassium 4.6 mmol/L (3.6-5.0) 06/28/19 00:58 Chloride 96.5 mmol/L (98-107) L 06/28/19 00:58 Carbon Dioxide 32 mmol/L (22-30) H 06/28/19 00:58 Anion Gap 13 mmol/L 06/28/19 00:58 BUN 21 mg/dL (7-17) H 06/28/19 00:58 Creatinine 0.2 mg/dL (0.7-1.2) L 06/28/19 00:58 Estimated GFR > 60 ml/min 06/28/19 00:58 BUN/Creatinine Ratio 105 % 06/28/19 00:58 Glucose 140 mg/dL (65-100) H 06/28/19 00:58 POC Glucose 122 (70-105) H 06/28/19 05:19 Calcium 9.1 mg/dL (8.4-10.2) 06/28/19 00:58 Phosphorus 4.50 mg/dL (2.5-4.5) 06/15/19 05:08 Magnesium 2.20 mg/dL (1.7-2.3) 06/25/19 04:38 Ferritin 43.6 ng/mL (13.0-400.0) 06/19/19 14:14 Total Bilirubin 0.30 mg/dL (0.1-1.2) 06/11/19 18:03 AST 14 units/L (5-40) 06/11/19 18:03 ALT 8 units/L (7-56) 06/11/19 18:03 Alkaline Phosphatase 85 units/L (35-129) 06/11/19 18:03 Lactate Dehydrogenase 290 units/L (91-180) H 06/19/19 14:14 Total Creatine Kinase 74 units/L (30-135) 06/12/19 05:09 CK-MB (CK-2) 4.0 ng/mL (0.0-4.0) 06/12/19 05:09 CK-MB (CK-2) Rel Index 5.4 (0-4) H 06/12/19 05:09 Troponin T < 0.010 ng/mL (0.00-0.029) 06/12/19 05:09 C-Reactive Protein 0.10 mg/dL (0.00-1.30) 06/19/19 14:14 Total Protein 6.4 g/dL (6.3-8.2) 06/11/19 18:03 Albumin 3.5 g/dL (3.9-5) L 06/11/19 18:03 Albumin/Globulin Ratio 1.2 % 06/11/19 18:03 Procalcitonin < 0.05 ng/mL (<0.15) 06/19/19 14:14 Urine Color Yellow (Yellow) 06/19/19 12:40 Urine Turbidity Clear (Clear) 06/19/19 12:40 Urine pH 5.0 (5.0-7.0) 06/19/19 12:40 Ur Specific [place] 1.032 (1.003-1.030) H 06/19/19 12:40 Urine Protein 30 mg/dl mg/dL (Negative) 06/19/19 12:40 Urine Glucose (UA) Neg mg/dL (Negative) 06/19/19 12:40 Urine Ketones Neg mg/dL (Negative) 06/19/19 12:40 Urine Blood Sm (Negative) 06/19/19 12:40 Urine Nitrite Neg (Negative) 06/19/19 12:40 Urine Bilirubin Neg (Negative) 06/19/19 12:40 Urine Urobilinogen < 2.0 mg/dL (<2.0) 06/19/19 12:40 Ur Leukocyte Esterase Neg (Negative) 06/19/19 12:40 Urine WBC (Auto) 4.0 /HPF (0.0-6.0) 06/19/19 12:40 Urine RBC (Auto) 44.0 /HPF (0.0-6.0) 06/19/19 12:40 Urine Bacteria (Auto) 1+ /HPF (Negative) 06/19/19 12:40 Hyaline Casts 15 /LPF 06/19/19 12:40 Urine Mucus Few /HPF 06/19/19 12:40 Urine Yeast (Budding) Few /HPF 06/12/19 02:04 Digoxin 0.5 ng/mL (0.9-2.0) L 06/24/19 04:41 Salicylates 1.0 mg/dL (2.8-20.0) L 06/11/19 18:03 Acetaminophen < 5.0 ug/mL (10.0-30.0) L 06/11/19 18:03 Heparin-induced Plt Ab Negative (Negative) 06/17/19 22:48 UF Heparin High Dose 3 % Release 06/17/19 22:48 ESSIE UFH Low Dose 0.1 2 % Release 06/17/19 22:48 ESSIE UFH Low Dose 0.5 1 % Release 06/17/19 22:48 Coronavirus (PCR) Negative (Negative) 06/19/19 10:33 Blood Type O POSITIVE 06/19/19 10:08 Antibody Screen Negative 06/19/19 10:08 Harley/IV: Voiding Method Indwelling Catheter IV Catheter Type [Right Foot] INT / Saline Lock IV Catheter Type [Right Upper INT / Saline Lock arm] IV Catheter Type [Left Peripheral IV Antecubital] IV Catheter Type [Right Wrist] Peripheral IV IV Catheter Type [Right Hand] Peripheral IV Active Medications - Current Medications Current Medications: Generic Name Dose Route Start Last Admin Trade Name Freq PRN Reason Stop Dose Admin Acetaminophen 650 mg 06/11/19 22:48 06/20/19 08:03 Tylenol PO 650 mg Q4H PRN Administration Pain MILD(1-3)/Fever >100.5/PRAJAPATI Albuterol 2.5 mg 06/14/19 08:20 Proventil IH Q4HRT PRN Shortness Of Breath Albuterol/Ipratropium 1 ampul 06/14/19 14:00 06/28/19 07:42 Duoneb *Not For Prn Use* IH 1 ampul TIDRT DOMINICK Administration Alprazolam 0.25 mg 06/13/19 10:23 06/22/19 09:00 Xanax PO 0.25 mg Q8H PRN Administration Anxiety Amiodarone HCl 100 mg 06/22/19 10:00 06/27/19 09:24 Cordarone PO 100 mg QDAY DOMINICK Administration Lipase/Protease/Amylase 1 each 06/13/19 17:52 Pancreazmarlene Pereira 10,500 Unit FEEDTUBE PRN PRN For Clogged Feeding Tube Arformoterol Tartrate 15 mcg 06/14/19 20:00 06/28/19 07:42 Brovana Nebu IH 15 mcg Q12HRT DOMINICK Administration Budesonide 0.5 mg 06/14/19 20:00 06/28/19 07:42 Pulmicort IH 0.5 mg Q12HRT DOMINICK Administration Dextrose 50 ml 06/11/19 22:48 D50w (25gm) Syringe IV Q30MIN PRN Hypoglycemia Protocol Diltiazem HCl 30 mg 06/16/19 11:30 06/28/19 06:14 Cardizem PO 30 mg Q8HR DOMINICK Administration Docusate Sodium 100 mg 06/18/19 11:00 06/27/19 22:12 Colace PO 100 mg BID DOMINICK Administration Furosemide 20 mg 06/28/19 10:00 Lasix IV 06/28/19 10:01 ONCE ONE Hydralazine HCl 10 mg 06/27/19 09:22 06/28/19 06:13 Apresoline IV 10 mg Q4HR PRN Administration Hypertension Hydrophilic Ointment 1 applic 06/11/19 17:44 Vaseline Lip Therapy TP Q2HR PRN Dry Lips Fentanyl Citrate 2,000 mcg in 100 mls @ 3.742 mls/hr 06/11/19 18:00 06/28/19 06:26 Fentanyl Drip Premix IV 1 mcg/kg/hr TITR DOMINICK 3.742 mls/hr Administration Protocol 1 MCG/KG/HR Insulin Human Lispro 0 unit 06/12/19 00:00 06/28/19 06:27 Humalog SUB-Q Not Given Q6HR [facility] Protocol Lansoprazole 30 mg 06/13/19 11:00 06/27/19 09:24 Prevacid Solutab FEEDTUBE 30 mg QDAY [facility] Administration Lorazepam 2 mg 06/21/19 14:45 06/23/19 21:42 Ativan IV 2 mg Q6H PRN Administration Agitation Magnesium Hydroxide 30 ml 06/22/19 09:51 06/27/19 13:47 Milk Of Magnesia PO 30 ml QDAY PRN Administration Constipation Methylprednisolone Sodium Succinate 40 mg 06/23/19 12:00 06/28/19 06:14 Solu-Medrol IV 40 mg Q6HR [facility] Administration Metoprolol Tartrate 2.5 mg 06/19/19 11:11 06/19/19 11:48 Metoprolol IV 2.5 mg Q4H PRN Administration HR>130 Multi-Ingred Cream/Lotion/Oil/Oint 1 applic 06/11/19 17:44 Artificial Tears Ophth Oint OU Q4HR PRN Dry Eye(s) Ondansetron HCl 4 mg 06/11/19 22:48 Zofran IV Q8H PRN Nausea And Vomiting Polyethylene Glycol 17 gm 06/20/19 14:00 06/21/19 16:05 Miralax 3350 PO 17 gm BID PRN Administration Constipation Quetiapine Fumarate 300 mg 06/13/19 11:00 06/27/19 22:15 Seroquel PO 300 mg BID DOMINICK Administration Simple Syrup 15 ml 06/13/19 17:52 Simple Syrup FEEDTUBE PRN PRN Hypoglycemia Simple Syrup 30 ml 06/13/19 17:52 Simple Syrup FEEDTUBE PRN PRN Hypoglycemia Sodium Bicarbonate 325 mg 06/13/19 17:52 Sodium Bicarbonate FEEDTUBE PRN PRN For Clogged Feeding Tube Sodium Chloride 10 ml 06/12/19 10:00 06/27/19 23:13 Sodium Chloride Flush Syringe 10 Ml IV 10 ml BID DOMINICK Administration Sodium Chloride 10 ml 06/11/19 22:48 06/18/19 21:06 Sodium Chloride Flush Syringe 10 Ml IV 10 ml PRN PRN Administration LINE FLUSH Venlafaxine HCl 75 mg 06/13/19 14:00 06/27/19 20:20 Effexor PO 75 mg TID DOMINICK Administration Nutrition/Malnutrition Assess - Dietary Evaluation Nutrition/Malnutrition Findings: Nutrition Notes Start: 06/12/19 11:05 Freq: Status: Active Protocol: Document 06/25/19 13:25 LM (Rec: 06/25/19 13:28 LM [email or web address]) Nutrition Notes Initial or Follow up Reassessment Current Diagnosis COPD,Coronary Artery Disease, Hypertension,Heart Failure, Respiratory Failure Other Pertinent Diagnosis COPD exacerbation Current Diet TF - Promote at 60ml/hr Labs/Tests reviewed Pertinent Medications reviewed Height 5 ft Weight 76.204 kg [place] Body Weight (kg) 45.45 BMI 32.8 Weight change and time frame wt change noted Subjective/Other Information TF running at goal and pt is tolerating. Percent of energy/protein needs met: 96%/99% Burn Absent Trauma Absent Current % PO Negligible Minimum of two criteria No #1 Nutrition Diagnosis Inadequate oral intake Diagnosis Progress(for reassessment Continues documentation) Is patient on ventilator? Yes Is Patient Ambulatory and/or Out of Bed No REE-([facility]-confined to bed) 1503.180 Calculation Used for Recommendations [facility] Additional Notes Pro needs 2g/kg IBW: 91g/day 1ml/kcal Nutrition Intervention Change Diet Order: Continue TF Nutrition Support: Promote 1.0 at 60ml/hr Flush 50ml q4h Kcal 1,440 Protein (gm) 90 Fluid (mL) 1,208 Goal #1 TF tolerance Goal #2 Meet at least 75% of energy and protein needs Anticipated Discharge Needs: Unable to identify at this time Follow-Up By: 06/29/19 Additional Comments F/U for TF tolerance, wt
[2019-06-28] MEDS: LORazepam 2 MG/ML VIAL IV PRN (09:52)
[2019-06-28] MEDS ORDERED: FUROSEMIDE 20 MG/2 ML INJ IV ONE (10:00)
[2019-06-28] MEDS: QUEtiapine 100 MG TAB PO SCH ×2 (10:02→21:14)
--- NOTE | 2019-06-28 10:08 | Progress Note ---
Assessment and Plan Paroxysmal Atrial flutter/afib/MAT currently in sinus rhythm now on amiodarone and diltiazem for suppression. not on anticoagulation secondary to history of melena and anemia. 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 She did undergo PCI of the mid LAD using bare metal stent. Recommend: Continue oral Cardizem and Amiodarone as tolerated for paroxysmal atrial flut ter. Otherwise, conservative cardiac management. Subjective Date of service: 06/28/19 Principal diagnosis: Ac and ch hypoxic & hypercapnic resp failure; AE-COPD; Tobacco use disorder Interval history: No cardiac events overnight. Objective Vital Signs Temp Pulse Pulse Pulse Pulse Resp Resp 06/28/19 08:30 75 06/28/19 08:05 65 14 06/28/19 08:00 98.9 F 96 H 113 H 113 H 06/28/19 07:42 69 18 L 77 H 06/28/19 07:30 73 06/28/19 07:00 78 06/28/19 06:30 80 06/28/19 06:14 103 H 06/28/19 06:13 103 H 06/28/19 06:00 95 H 06/28/19 05:30 94 H 20 06/28/19 05:00 106 H 19 06/28/19 04:30 109 H 21 06/28/19 04:09 112 H 06/28/19 04:08 110 H 23 06/28/19 04:00 112 H 113 H 113 H 06/28/19 03:31 98.9 F 06/28/19 03:30 107 H 21 06/28/19 03:00 105 H 23 06/28/19 02:30 101 H 16 06/28/19 02:00 105 H 20 06/28/19 01:30 118 H 22 06/28/19 01:00 115 H 29 H 06/28/19 00:30 111 H 27 H 06/28/19 00:00 111 H 23 06/27/19 23:30 109 H 18 06/27/19 23:26 98.7 F 06/27/19 23:21 110 H 06/27/19 23:16 108 H 21 06/27/19 23:00 118 H 20 06/27/19 22:30 112 H 20 06/27/19 22:12 110 H 06/27/19 22:00 108 H 25 H 06/27/19 21:30 102 H 21 06/27/19 21:00 107 H 23 06/27/19 20:30 117 H 109 H 22 22 06/27/19 20:24 106 H 28 H 06/27/19 20:00 98.5 F 100 H 104 H 23 06/27/19 19:31 102 H 06/27/19 19:30 105 H 14 06/27/19 19:20 87 06/27/19 19:00 77 16 06/27/19 18:30 94 H 17 06/27/19 18:00 84 13 06/27/19 17:30 74 12 06/27/19 17:00 78 13 06/27/19 16:30 80 13 06/27/19 16:00 98.8 F 81 104 H 17 06/27/19 15:30 83 13 06/27/19 15:00 65 11 L 06/27/19 14:30 66 11 L 06/27/19 14:00 76 114 H 12 20 06/27/19 13:43 83 06/27/19 13:30 70 11 L 06/27/19 13:00 75 11 L 06/27/19 12:30 74 12 06/27/19 12:00 98.4 F 87 104 H 14 06/27/19 11:30 103 H 15 06/27/19 11:00 108 H 14 06/27/19 10:30 114 H 17 BP Pulse Ox 06/28/19 08:30 124/61 93 06/28/19 08:05 126/63 97 06/28/19 08:00 124/61 99 06/28/19 07:42 108/52 95 06/28/19 07:30 124/61 100 06/28/19 07:00 124/61 100 06/28/19 06:30 139/68 95 06/28/19 06:14 204/79 06/28/19 06:13 204/79 06/28/19 06:00 166/123 87 06/28/19 05:30 166/123 81 L 06/28/19 05:00 147/79 85 06/28/19 04:30 164/74 78 L 06/28/19 04:09 156/84 97 06/28/19 04:08 97 06/28/19 04:00 97 06/28/19 03:31 06/28/19 03:30 150/79 85 06/28/19 03:00 135/75 92 06/28/19 02:30 133/74 99 06/28/19 02:00 147/88 97 06/28/19 01:30 140/80 98 06/28/19 01:00 141/81 96 06/28/19 00:30 123/66 96 06/28/19 00:00 123/66 97 06/27/19 23:30 123/66 96 06/27/19 23:26 06/27/19 23:21 108/69 97 06/27/19 23:16 108/69 98 06/27/19 23:00 108/69 97 06/27/19 22:30 139/56 98 06/27/19 22:12 119/83 06/27/19 22:00 150/87 96 06/27/19 21:30 150/87 96 06/27/19 21:00 150/87 98 06/27/19 20:30 150/87 96 06/27/19 20:24 150/87 96 06/27/19 20:00 143/78 96 06/27/19 19:31 06/27/19 19:30 143/78 98 06/27/19 19:20 175/131 06/27/19 19:00 146/71 92 06/27/19 18:30 135/69 100 06/27/19 18:00 135/69 91 06/27/19 17:30 174/76 97 06/27/19 17:00 174/76 97 06/27/19 16:30 146/92 97 06/27/19 16:00 146/92 99 06/27/19 15:30 122/57 97 06/27/19 15:00 122/57 99 06/27/19 14:30 114/57 99 06/27/19 14:00 116/58 100 06/27/19 13:43 114/57 06/27/19 13:30 114/57 100 06/27/19 13:00 116/58 100 05/10/20 12:30 107/56 100 05/10/20 12:00 112/64 99 06/27/19 11:30 112/67 98 06/27/19 11:00 134/71 97 06/27/19 10:30 140/68 92 - Physical Examination General: Other (intubated) Cardiac: Positive: Reg Rate and Rhythm - Labs and Meds CBC 06/27/19 06/28/19 Range/Units 13:41 00:58 WBC 15.0 H 16.2 H (4.5-11.0) K/mm3 RBC 4.04 4.46 (3.65-5.03) M/mm3 Hgb 10.0 L 11.3 (10.1-14.3) gm/dl Hct 32.9 35.7 (30.3-42.9) % Plt Count 114 L 130 L (140-440) K/mm3 Comprehensive Metabolic Panel 06/27/19 06/28/19 Range/Units 13:41 00:58 Sodium 135 L 137 (137-145) mmol/L Potassium 4.7 4.6 (3.6-5.0) mmol/L Chloride 96.5 L 96.5 L (98-107) mmol/L Carbon Dioxide 29 32 H (22-30) mmol/L BUN 21 H 21 H (7-17) mg/dL Creatinine 0.2 L 0.2 L (0.7-1.2) mg/dL Glucose 161 H 140 H (65-100) mg/dL Calcium 8.5 9.1 (8.4-10.2) mg/dL - Allied health notes Allied health notes reviewed: nursing
--- NOTE | 2019-06-28 10:48 | Progress Note ---
Assessment and Plan Cultures: Blood culture 06/11/2019 no growth Sputum culture 06/11/2019 pansensitive Pseudomonas Sputum culture 06/19/2019 Pseudomonas A/P: 59-year-old female past medical history GERD, tobacco abuse, COPD, CAD admitted to the hospital with COPD exacerbation admitted with acute hypoxic respiratory failure #Leukocytosis: on IV solumedrol #Pseudomonas pneumonia: patient has been intubated for some time, and previously had Pseudomonas pneumonia. May have some colonization of the tube. Regardless, would continue to treat with Cefepime, and may need up to 14 days treatment for a VAP. #COPD with acute respiratory failure: on the vent. On solumedrol IV #Tobacco abuse #Thrombocytopenia: improving Recs: -stop cefepime s/p 14 days -monitor leukocytosis -taper off IV steroids Will follow. Mirtha Hairston MD Infectious Diseases Technical Staff Assistant [facility] ([facility]) M [phone] O [phone] Subjective Date of service: 06/28/19 Principal diagnosis: Ac and ch hypoxic & hypercapnic resp failure; AE-COPD; Tobacco use disorder Interval history: Remains intubated now on CPAP no fever Objective - Exam Narrative Exam: General appearance: on the vent Eyes: anicteric sclerae, moist conjunctivae; no lid-lag; PERRLA HENT: Atraumatic; oropharynx limited +ETT Lungs: scattered rhonchi CV: RRR no murmur Abdomen: Soft, non-tender Extremities: no edema, no cyanosis Skin: No rash. Psych: no agitated Neuro: sedated - Constitutional Vitals: Vital Signs Temp Pulse Resp BP Pulse Ox 98.9 F 99 H 14 111/58 100 06/28/19 08:00 06/28/19 10:30 06/28/19 08:05 06/28/19 10:30 06/28/19 10:30 Temperature -Last 24 Hours Temperature 98.9 F Temperature 98.9 F Temperature 98.7 F Temperature 98.5 F Temperature 98.8 F Temperature 98.4 F - Labs CBC & Chem 7: 06/28/19 00:58 06/28/19 00:58 Labs: Abnormal lab results 06/27/19 06/27/19 06/27/19 Range/Units 12:09 13:41 13:41 WBC 15.0 H (4.5-11.0) K/mm3 Hgb 10.0 L (10.1-14.3) gm/dl MCH 25 L (28-32) pg RDW 17.9 H (13.2-15.2) % Plt Count 114 L (140-440) K/mm3 Seg Neuts % (Manual) 98.0 H (40.0-70.0) % Lymphocytes % (Manual) 0 L (13.4-35.0) % Seg Neutrophils # Man 14.7 H (1.8-7.7) K/mm3 Lymphocytes # (Manual) 0.0 L (1.2-5.4) K/mm3 Sodium 135 L (137-145) mmol/L Chloride 96.5 L (98-107) mmol/L Carbon Dioxide (22-30) mmol/L BUN 21 H (7-17) mg/dL Creatinine 0.2 L (0.7-1.2) mg/dL Glucose 161 H (65-100) mg/dL POC Glucose 150 H (70-105) 06/27/19 06/28/19 06/28/19 Range/Units 18:03 00:22 00:58 WBC 16.2 H (4.5-11.0) K/mm3 Hgb (10.1-14.3) gm/dl MCH 25 L (28-32) pg RDW 18.2 H (13.2-15.2) % Plt Count 130 L (140-440) K/mm3 Seg Neuts % (Manual) 98.0 H (40.0-70.0) % Lymphocytes % (Manual) 0 L (13.4-35.0) % Seg Neutrophils # Man 15.9 H (1.8-7.7) K/mm3 Lymphocytes # (Manual) 0.0 L (1.2-5.4) K/mm3 Sodium (137-145) mmol/L Chloride (98-107) mmol/L Carbon Dioxide (22-30) mmol/L BUN (7-17) mg/dL Creatinine (0.7-1.2) mg/dL Glucose (65-100) mg/dL POC Glucose 156 H 150 H (70-105) 06/28/19 06/28/19 Range/Units 00:58 05:19 WBC (4.5-11.0) K/mm3 Hgb (10.1-14.3) gm/dl MCH (28-32) pg RDW (13.2-15.2) % Plt Count (140-440) K/mm3 Seg Neuts % (Manual) (40.0-70.0) % Lymphocytes % (Manual) (13.4-35.0) % Seg Neutrophils # Man (1.8-7.7) K/mm3 Lymphocytes # (Manual) (1.2-5.4) K/mm3 Sodium (137-145) mmol/L Chloride 96.5 L (98-107) mmol/L Carbon Dioxide 32 H (22-30) mmol/L BUN 21 H (7-17) mg/dL Creatinine 0.2 L (0.7-1.2) mg/dL Glucose 140 H (65-100) mg/dL POC Glucose 122 H (70-105)
[2019-06-28 12:34] LABS: ABG Base Excess 8.6 mmol/L (-2.0-3.0); ABG HCO3 33.4 mmol/L (20.0-26.0); ABG Methemoglobin 0.4 % (0.0-1.5); ABG Oxygen Saturation 93.7 % (95.0-99.0); ABG PCO2 47.6 mm Hg; ABG PH 7.464 pH Units (7.350-7.450); ABG PO2 64.2 mm Hg (80.0-90.0)
--- NOTE | 2019-06-28 13:28 | Progress Note ---
Assessment and Plan Acute and chronic hypoxic and hypercapnic respiratory failure: Acute exacerbation of COPD Tobacco use disorder/Nicotine dependence (on going) Hypernatremia History of coronary artery disease/CHF History of HTN Chronic narcotic dependence Chronic back pain Anxiety disorder History of depression; Obesity; BMI 32.2 - reduced Psupp to 10 - keep peep at 8 oivernigh - 2 hour SBT on PSV 10/6 in am +/- extubation - continue other care as below - continue rate control per cardiology - continue daily SAT and SBT assessment as tolerated - continue supplemental oxygen with restrictive strategies acutely re: severe COPD (PaO2 of 60 with O2 sats 88-90% is acceptable) - VAP bundle addressed (aspiration precautions; HOB > 40 degrees) - continue bronchodilators with pulmonary hygiene per RT - continue airborne, droplet and contact isolation - limit daily CXR's - Avoid benzodiazepine's, reduce the possibility of delirium - Continue with fentanyl, titrate for RASS of 0 to -1 - Maintenance of sleep-wake cycle, avoid delirium - continue enteral nutritional support at goal rate as tolerated - Accuchecks with glycemic control per SSI for target blood glucose of 140-180 mg/dL while critically ill; avoid hypoglycemia - VTE prophylaxis (Lovenox) - Stress ulcer prophylaxis (Prevacid) - continue systemic Steroids - Empiric Antibiotics (Cefepime); de-escalate per ID rec's - Monitor hemodynamics closely - Avoid delirium; Avoid benzodiazepines - Nicotine withdrawal precautions, nicotine patch - In view of ongoing smoking, recurrent hospital admission, will need to re- address advance directives and goals of care, once the patient is able to be a part of that discussion. Will also address smoking cessation again, once she is able to be a part of that discussion - continue other care per attending / other territory sales consultant's .... re-evaluate in am & prn CONDITION: CRITICAL PROGNOSIS: GUARDED CODE STATUS: FULL CODE The high probability of a clinically significant, sudden or life-threatening deterioration of the respiratory, cardiovascular, neurology, endocrine system(s) required my full and direct attention, intervention and personal management. The aggregate critical care time was [32] minutes without overlap. Time includes spent on; [x] Data Review and interpretation [x] Patient assessment and monitoring of vital signs [x] Documentation [x] Medication orders and management Subjective Date of service: 06/28/19 Principal diagnosis: Ac and ch hypoxic & hypercapnic resp failure; AE-COPD; Tobacco use disorder Interval history: Patient is seen today for: Ac and ch hypoxic hypercapnic resp failure; AE-COPD; Tobacco use disorder/Nicotine dependence; Hypernatremia; HTN (hypotensive at presentation 0; Chronic narcotic dependence ; Chronic back pain; Anxiety disorder Seen and examined at bedside; 24-hour events reviewed; nursing and respiratory care staff consulted; no adverse overnight events reported to me; laying in bed; remains on MVS; on PSV trial 01/24 and tolerating decently; no new issues otherwise Objective Vital Signs - 12hr 06/28/19 06/28/19 06/28/19 01:30 02:00 02:30 Temperature Pulse Rate 118 H 105 H 101 H Pulse Rate [ Bilateral] Pulse Rate [ From Monitor] Pulse Rate [ Right Dorsalis Pedis] Respiratory 22 20 16 Rate Respiratory Rate [Bilateral ] Blood Pressure 140/80 147/88 133/74 O2 Sat by Pulse 98 97 99 Oximetry 06/28/19 06/28/19 06/28/19 03:00 03:30 03:31 Temperature 98.9 F Pulse Rate 105 H 107 H Pulse Rate [ Bilateral] Pulse Rate [ From Monitor] Pulse Rate [ Right Dorsalis Pedis] Respiratory 23 21 Rate Respiratory Rate [Bilateral ] Blood Pressure 135/75 150/79 O2 Sat by Pulse 92 85 Oximetry 06/28/19 06/28/19 06/28/19 04:00 04:08 04:09 Temperature Pulse Rate 112 H 110 H 112 H Pulse Rate [ Bilateral] Pulse Rate [ 113 H From Monitor] Pulse Rate [ 113 H Right Dorsalis Pedis] Respiratory 23 Rate Respiratory Rate [Bilateral ] Blood Pressure 156/84 O2 Sat by Pulse 97 97 97 Oximetry 06/28/19 06/28/19 06/28/19 04:30 05:00 05:30 Temperature Pulse Rate 109 H 106 H 94 H Pulse Rate [ Bilateral] Pulse Rate [ From Monitor] Pulse Rate [ Right Dorsalis Pedis] Respiratory 21 19 20 Rate Respiratory Rate [Bilateral ] Blood Pressure 164/74 147/79 166/123 O2 Sat by Pulse 78 L 85 81 L Oximetry 06/28/19 06/28/19 06/28/19 06:00 06:13 06:14 Temperature Pulse Rate 95 H 103 H 103 H Pulse Rate [ Bilateral] Pulse Rate [ From Monitor] Pulse Rate [ Right Dorsalis Pedis] Respiratory Rate Respiratory Rate [Bilateral ] Blood Pressure 166/123 204/79 204/79 O2 Sat by Pulse 87 Oximetry 06/28/19 06/28/19 06/28/19 06:30 07:00 07:30 Temperature Pulse Rate 80 78 73 Pulse Rate [ Bilateral] Pulse Rate [ From Monitor] Pulse Rate [ Right Dorsalis Pedis] Respiratory Rate Respiratory Rate [Bilateral ] Blood Pressure 139/68 124/61 124/61 O2 Sat by Pulse 95 100 100 Oximetry 06/28/19 06/28/19 06/28/19 07:42 08:00 08:05 Temperature 98.9 F Pulse Rate 69 75 65 Pulse Rate [ 18 L Bilateral] Pulse Rate [ 113 H From Monitor] Pulse Rate [ 113 H Right Dorsalis Pedis] Respiratory Rate Respiratory 77 H Rate [Bilateral ] Blood Pressure 108/52 124/61 126/63 O2 Sat by Pulse 95 99 97 Oximetry 06/28/19 06/28/19 06/28/19 08:30 09:00 09:30 Temperature Pulse Rate 75 65 62 Pulse Rate [ Bilateral] Pulse Rate [ From Monitor] Pulse Rate [ Right Dorsalis Pedis] Respiratory Rate Respiratory Rate [Bilateral ] Blood Pressure 124/61 108/52 126/63 O2 Sat by Pulse 93 99 99 Oximetry 06/28/19 06/28/19 06/28/19 10:00 10:30 11:00 Temperature Pulse Rate 73 99 H 115 H Pulse Rate [ Bilateral] Pulse Rate [ From Monitor] Pulse Rate [ Right Dorsalis Pedis] Respiratory Rate Respiratory Rate [Bilateral ] Blood Pressure 131/62 111/58 110/74 O2 Sat by Pulse 99 100 97 Oximetry 06/28/19 06/28/19 06/28/19 11:30 11:51 12:00 Temperature 98.9 F Pulse Rate 119 H 114 H 105 H Pulse Rate [ Bilateral] Pulse Rate [ 112 H From Monitor] Pulse Rate [ 112 H Right Dorsalis Pedis] Respiratory 20 Rate Respiratory Rate [Bilateral ] Blood Pressure 113/70 113/70 113/70 O2 Sat by Pulse 95 97 98 Oximetry 06/28/19 12:59 Temperature Pulse Rate 79 Pulse Rate [ Bilateral] Pulse Rate [ From Monitor] Pulse Rate [ Right Dorsalis Pedis] Respiratory Rate Respiratory Rate [Bilateral ] Blood Pressure 110/63 O2 Sat by Pulse Oximetry Constitutional: no acute distress, other (elderly looking obese CF, normocephalic on MVS without signidficant dyssynchrony) Eyes: non-icteric ENT: oropharynx moist, other (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) Neck: supple, no lymphadenopathy, no JVD Effort: mildly labored Ascultation: Bilateral: diminished breath sounds, rhonchi Percussion: Bilateral: not dull Cardiovascular: regular rate and rhythm Gastrointestinal: normoactive bowel sounds, soft, non-tender, non-distended Integumentary: normal Extremities: no cyanosis, no edema, pulses normal, no ischemia or petechiae Neurologic: non-focal exam (grossly), pupils equal and round, CN II-XII normal, unable to assess Psychiatric: other (Unable to assess re: AMS) CBC and BMP: 06/29/19 05:31 06/29/19 05:31 ABG, PT/INR, D-dimer: ABG ABG pH 7.464 pH Units (7.350-7.450) H 06/28/19 12:20 ABG pCO2 47.6 mm Hg 06/28/19 12:20 ABG pO2 64.2 mm Hg (80.0-90.0) L 06/28/19 12:20 ABG O2 Saturation 93.7 % (95.0-99.0) L 06/28/19 12:20 PT/INR, D-dimer PT 13.0 Sec. (12.2-14.9) 06/11/19 18:03 INR 0.97 (0.87-1.13) 06/11/19 18:03 D-Dimer 1177.30 ng/mlDDU (0-234) H 06/19/19 14:14 Abnormal lab findings: Abnormal Labs 06/11/19 06/11/19 06/11/19 18:03 18:03 18:03 WBC Hgb MCH 25 L RDW 19.4 H Plt Count 124 L [place] % (Auto) 10.3 H Lymph # 1.1 L Seg Neutrophils % 74.4 H Seg Neuts % (Manual) Lymphocytes % (Manual) Seg Neutrophils # Man Lymphocytes # (Manual) Monocytes # (Manual) D-Dimer ABG pH ABG pO2 ABG HCO3 ABG O2 Saturation ABG Base Excess ABG Hemoglobin Oxyhemoglobin Sodium 146 H Potassium Chloride Carbon Dioxide BUN 21 H Creatinine 0.4 L Glucose POC Glucose Calcium Magnesium 2.70 H Lactate Dehydrogenase CK-MB (CK-2) CK-MB (CK-2) Rel Index Albumin 3.5 L Ur Specific [place] Urine WBC (Auto) Digoxin Salicylates 1.0 L Acetaminophen 06/11/19 06/11/19 06/11/19 18:03 18:59 23:22 WBC Hgb MCH RDW Plt Count [place] % (Auto) Lymph # Seg Neutrophils % Seg Neuts % (Manual) Lymphocytes % (Manual) Seg Neutrophils # Man Lymphocytes # (Manual) Monocytes # (Manual) D-Dimer ABG pH 7.340 L ABG pO2 76.0 L ABG HCO3 34.6 H ABG O2 Saturation ABG Base Excess 7.1 H ABG Hemoglobin 10.9 L Oxyhemoglobin 91.6 L Sodium Potassium Chloride Carbon Dioxide BUN Creatinine Glucose POC Glucose Calcium Magnesium Lactate Dehydrogenase CK-MB (CK-2) 5.5 H CK-MB (CK-2) Rel Index 5.5 H Albumin Ur Specific [place] Urine WBC (Auto) Digoxin Salicylates Acetaminophen < 5.0 L 06/12/19 06/12/19 06/12/19 00:29 02:04 04:20 WBC Hgb MCH RDW Plt Count [place] % (Auto) Lymph # Seg Neutrophils % Seg Neuts % (Manual) Lymphocytes % (Manual) Seg Neutrophils # Man Lymphocytes # (Manual) Monocytes # (Manual) D-Dimer ABG pH 7.313 L ABG pO2 75.3 L ABG HCO3 29.9 H ABG O2 Saturation 94.3 L ABG Base Excess ABG Hemoglobin 10.8 L Oxyhemoglobin 92.0 L Sodium Potassium Chloride Carbon Dioxide BUN Creatinine Glucose POC Glucose 107 H Calcium Magnesium Lactate Dehydrogenase CK-MB (CK-2) CK-MB (CK-2) Rel Index Albumin Ur Specific [place] Urine WBC (Auto) 30.0 H Digoxin Salicylates Acetaminophen 06/12/19 06/12/19 06/12/19 05:09 05:09 05:09 WBC Hgb MCH 25 L RDW 19.4 H Plt Count 114 L [place] % (Auto) Lymph # Seg Neutrophils % Seg Neuts % (Manual) 91.0 H Lymphocytes % (Manual) 7.0 L Seg Neutrophils # Man Lymphocytes # (Manual) 0.4 L Monocytes # (Manual) D-Dimer ABG pH ABG pO2 ABG HCO3 ABG O2 Saturation ABG Base Excess ABG Hemoglobin Oxyhemoglobin Sodium 147 H Potassium Chloride 107.4 H Carbon Dioxide BUN 19 H Creatinine 0.4 L Glucose 110 H POC Glucose Calcium 8.2 L Magnesium Lactate Dehydrogenase CK-MB (CK-2) CK-MB (CK-2) Rel Index 5.4 H Albumin Ur Specific [place] Urine WBC (Auto) Digoxin Salicylates Acetaminophen 06/12/19 06/12/19 06/13/19 06:42 23:21 04:14 WBC Hgb MCH RDW Plt Count [place] % (Auto) Lymph # Seg Neutrophils % Seg Neuts % (Manual) Lymphocytes % (Manual) Seg Neutrophils # Man Lymphocytes # (Manual) Monocytes # (Manual) D-Dimer ABG pH ABG pO2 62.6 L ABG HCO3 29.6 H ABG O2 Saturation 91.0 L ABG Base Excess ABG Hemoglobin 10.3 L Oxyhemoglobin 89.0 L Sodium Potassium Chloride Carbon Dioxide BUN Creatinine Glucose POC Glucose 108 H 106 H Calcium Magnesium Lactate Dehydrogenase CK-MB (CK-2) CK-MB (CK-2) Rel Index Albumin Ur Specific [place] Urine WBC (Auto) Digoxin Salicylates Acetaminophen 06/13/19 06/13/19 06/13/19 04:54 04:54 12:20 WBC Hgb MCH 25 L RDW 19.2 H Plt Count 119 L [place] % (Auto) Lymph # Seg Neutrophils % Seg Neuts % (Manual) 95.0 H Lymphocytes % (Manual) 2.0 L Seg Neutrophils # Man 9.1 H Lymphocytes # (Manual) 0.2 L Monocytes # (Manual) D-Dimer ABG pH ABG pO2 ABG HCO3 ABG O2 Saturation ABG Base Excess ABG Hemoglobin Oxyhemoglobin Sodium 149 H Potassium Chloride 111.4 H Carbon Dioxide BUN 26 H Creatinine 0.5 L Glucose 107 H POC Glucose 125 H Calcium Magnesium Lactate Dehydrogenase CK-MB (CK-2) CK-MB (CK-2) Rel Index Albumin Ur Specific [place] Urine WBC (Auto) Digoxin Salicylates Acetaminophen 06/13/19 06/14/19 06/14/19 17:25 03:44 04:55 WBC Hgb MCH RDW Plt Count [place] % (Auto) Lymph # Seg Neutrophils % Seg Neuts % (Manual) Lymphocytes % (Manual) Seg Neutrophils # Man Lymphocytes # (Manual) Monocytes # (Manual) D-Dimer ABG pH ABG pO2 58.9 L ABG HCO3 29.5 H ABG O2 Saturation 88.7 L ABG Base Excess ABG Hemoglobin 10.2 L Oxyhemoglobin 86.7 L Sodium 150 H Potassium Chloride 110.4 H Carbon Dioxide BUN 20 H Creatinine 0.4 L Glucose 105 H POC Glucose 128 H Calcium Magnesium Lactate Dehydrogenase CK-MB (CK-2) CK-MB (CK-2) Rel Index Albumin Ur Specific [place] Urine WBC (Auto) Digoxin Salicylates Acetaminophen 06/14/19 06/14/19 06/14/19 05:37 11:58 21:00 WBC Hgb MCH RDW Plt Count [place] % (Auto) Lymph # Seg Neutrophils % Seg Neuts % (Manual) Lymphocytes % (Manual) Seg Neutrophils # Man Lymphocytes # (Manual) Monocytes # (Manual) D-Dimer ABG pH 7.321 L ABG pO2 60.0 L ABG HCO3 31.4 H ABG O2 Saturation 87.3 L ABG Base Excess 4.1 H ABG Hemoglobin 10.6 L Oxyhemoglobin 84.8 L Sodium Potassium Chloride Carbon Dioxide BUN Creatinine Glucose POC Glucose 111 H 116 H Calcium Magnesium Lactate Dehydrogenase CK-MB (CK-2) CK-MB (CK-2) Rel Index Albumin Ur Specific [place] Urine WBC (Auto) Digoxin Salicylates Acetaminophen 06/15/19 06/15/19 06/15/19 00:22 03:25 05:08 WBC Hgb MCH RDW Plt Count [place] % (Auto) Lymph # Seg Neutrophils % Seg Neuts % (Manual) Lymphocytes % (Manual) Seg Neutrophils # Man Lymphocytes # (Manual) Monocytes # (Manual) D-Dimer ABG pH 7.317 L ABG pO2 ABG HCO3 31.5 H ABG O2 Saturation ABG Base Excess 4.1 H ABG Hemoglobin 10.4 L Oxyhemoglobin 94.1 L Sodium Potassium Chloride Carbon Dioxide 31 H BUN 23 H Creatinine 0.3 L Glucose 120 H POC Glucose 108 H Calcium Magnesium Lactate Dehydrogenase CK-MB (CK-2) CK-MB (CK-2) Rel Index Albumin Ur Specific [place] Urine WBC (Auto) Digoxin Salicylates Acetaminophen 06/15/19 06/15/19 06/15/19 05:24 11:41 17:38 WBC Hgb MCH RDW Plt Count [place] % (Auto) Lymph # Seg Neutrophils % Seg Neuts % (Manual) Lymphocytes % (Manual) Seg Neutrophils # Man Lymphocytes # (Manual) Monocytes # (Manual) D-Dimer ABG pH ABG pO2 ABG HCO3 ABG O2 Saturation ABG Base Excess ABG Hemoglobin Oxyhemoglobin Sodium Potassium Chloride Carbon Dioxide BUN Creatinine Glucose POC Glucose 111 H 154 H 115 H Calcium Magnesium Lactate Dehydrogenase CK-MB (CK-2) CK-MB (CK-2) Rel Index Albumin Ur Specific [place] Urine WBC (Auto) Digoxin Salicylates Acetaminophen 06/15/19 06/16/19 06/16/19 23:31 03:40 05:18 WBC Hgb MCH RDW Plt Count [place] % (Auto) Lymph # Seg Neutrophils % Seg Neuts % (Manual) Lymphocytes % (Manual) Seg Neutrophils # Man Lymphocytes # (Manual) Monocytes # (Manual) D-Dimer ABG pH 7.313 L ABG pO2 96.4 H ABG HCO3 35.2 H ABG O2 Saturation ABG Base Excess 7.2 H ABG Hemoglobin 10.5 L Oxyhemoglobin 94.9 L Sodium Potassium Chloride Carbon Dioxide BUN Creatinine Glucose POC Glucose 161 H 158 H Calcium Magnesium Lactate Dehydrogenase CK-MB (CK-2) CK-MB (CK-2) Rel Index Albumin Ur Specific [place] Urine WBC (Auto) Digoxin Salicylates Acetaminophen 06/16/19 06/16/19 06/16/19 05:45 05:45 12:06 WBC 12.1 H Hgb MCH 25 L RDW 18.7 H Plt Count 93 L [place] % (Auto) Lymph # Seg Neutrophils % Seg Neuts % (Manual) 97.0 H Lymphocytes % (Manual) 0 L Seg Neutrophils # Man 11.7 H Lymphocytes # (Manual) 0.0 L Monocytes # (Manual) D-Dimer ABG pH ABG pO2 ABG HCO3 ABG O2 Saturation ABG Base Excess ABG Hemoglobin Oxyhemoglobin Sodium Potassium Chloride Carbon Dioxide 33 H BUN 25 H Creatinine 0.3 L Glucose 165 H POC Glucose 178 H Calcium Magnesium Lactate Dehydrogenase CK-MB (CK-2) CK-MB (CK-2) Rel Index Albumin Ur Specific [place] Urine WBC (Auto) Digoxin Salicylates Acetaminophen 06/16/19 06/16/19 06/17/19 17:55 23:42 03:35 WBC Hgb MCH RDW Plt Count [place] % (Auto) Lymph # Seg Neutrophils % Seg Neuts % (Manual) Lymphocytes % (Manual) Seg Neutrophils # Man Lymphocytes # (Manual) Monocytes # (Manual) D-Dimer ABG pH ABG pO2 73.2 L ABG HCO3 35.2 H ABG O2 Saturation 94.5 L ABG Base Excess 8.8 H ABG Hemoglobin 10.7 L Oxyhemoglobin 92.6 L Sodium Potassium Chloride Carbon Dioxide BUN Creatinine Glucose POC Glucose 180 H 160 H Calcium Magnesium Lactate Dehydrogenase CK-MB (CK-2) CK-MB (CK-2) Rel Index Albumin Ur Specific [place] Urine WBC (Auto) Digoxin Salicylates Acetaminophen 06/17/19 06/17/19 06/17/19 04:57 09:45 11:59 WBC 11.7 H Hgb MCH 25 L RDW 18.2 H Plt Count 79 L [place] % (Auto) Lymph # Seg Neutrophils % Seg Neuts % (Manual) 96.0 H Lymphocytes % (Manual) 3.0 L Seg Neutrophils # Man 11.2 H Lymphocytes # (Manual) 0.4 L Monocytes # (Manual) D-Dimer ABG pH ABG pO2 ABG HCO3 ABG O2 Saturation ABG Base Excess ABG Hemoglobin Oxyhemoglobin Sodium Potassium Chloride Carbon Dioxide 34 H BUN 31 H Creatinine 0.3 L Glucose 153 H POC Glucose 163 H Calcium Magnesium Lactate Dehydrogenase CK-MB (CK-2) CK-MB (CK-2) Rel Index Albumin Ur Specific [place] Urine WBC (Auto) Digoxin Salicylates Acetaminophen 06/17/19 06/17/19 06/17/19 12:34 17:33 23:39 WBC Hgb MCH RDW Plt Count [place] % (Auto) Lymph # Seg Neutrophils % Seg Neuts % (Manual) Lymphocytes % (Manual) Seg Neutrophils # Man Lymphocytes # (Manual) Monocytes # (Manual) D-Dimer ABG pH ABG pO2 ABG HCO3 ABG O2 Saturation ABG Base Excess ABG Hemoglobin Oxyhemoglobin Sodium Potassium Chloride Carbon Dioxide BUN Creatinine Glucose POC Glucose 171 H 186 H 161 H Calcium Magnesium Lactate Dehydrogenase CK-MB (CK-2) CK-MB (CK-2) Rel Index Albumin Ur Specific [place] Urine WBC (Auto) Digoxin Salicylates Acetaminophen 06/18/19 06/18/19 06/18/19 04:25 05:23 05:23 WBC 13.2 H Hgb MCH 25 L RDW 18.3 H Plt Count 81 L [place] % (Auto) Lymph # Seg Neutrophils % Seg Neuts % (Manual) 96.0 H Lymphocytes % (Manual) 4.0 L Seg Neutrophils # Man 12.7 H Lymphocytes # (Manual) 0.5 L Monocytes # (Manual) D-Dimer ABG pH ABG pO2 72.9 L ABG HCO3 33.8 H ABG O2 Saturation 94.6 L ABG Base Excess 7.3 H ABG Hemoglobin 11.1 L Oxyhemoglobin 92.8 L Sodium Potassium Chloride Carbon Dioxide 34 H BUN 36 H Creatinine 0.3 L Glucose 162 H POC Glucose Calcium Magnesium Lactate Dehydrogenase CK-MB (CK-2) CK-MB (CK-2) Rel Index Albumin Ur Specific [place] Urine WBC (Auto) Digoxin Salicylates Acetaminophen 06/18/19 06/18/19 06/18/19 05:37 12:26 18:17 WBC Hgb MCH RDW Plt Count [place] % (Auto) Lymph # Seg Neutrophils % Seg Neuts % (Manual) Lymphocytes % (Manual) Seg Neutrophils # Man Lymphocytes # (Manual) Monocytes # (Manual) D-Dimer ABG pH ABG pO2 ABG HCO3 ABG O2 Saturation ABG Base Excess ABG Hemoglobin Oxyhemoglobin Sodium Potassium Chloride Carbon Dioxide BUN Creatinine Glucose POC Glucose 177 H 156 H 134 H Calcium Magnesium Lactate Dehydrogenase CK-MB (CK-2) CK-MB (CK-2) Rel Index Albumin Ur Specific [place] Urine WBC (Auto) Digoxin Salicylates Acetaminophen 06/18/19 06/19/19 06/19/19 23:51 05:58 12:12 WBC Hgb MCH RDW Plt Count [place] % (Auto) Lymph # Seg Neutrophils % Seg Neuts % (Manual) Lymphocytes % (Manual) Seg Neutrophils # Man Lymphocytes # (Manual) Monocytes # (Manual) D-Dimer ABG pH ABG pO2 ABG HCO3 ABG O2 Saturation ABG Base Excess ABG Hemoglobin Oxyhemoglobin Sodium Potassium Chloride Carbon Dioxide BUN Creatinine Glucose POC Glucose 153 H 143 H 186 H Calcium Magnesium Lactate Dehydrogenase CK-MB (CK-2) CK-MB (CK-2) Rel Index Albumin Ur Specific [place] Urine WBC (Auto) Digoxin Salicylates Acetaminophen 06/19/19 06/19/19 06/19/19 12:40 14:14 14:14 WBC Hgb MCH RDW Plt Count [place] % (Auto) Lymph # Seg Neutrophils % Seg Neuts % (Manual) Lymphocytes % (Manual) Seg Neutrophils # Man Lymphocytes # (Manual) Monocytes # (Manual) D-Dimer 1177.30 H ABG pH ABG pO2 ABG HCO3 ABG O2 Saturation ABG Base Excess ABG Hemoglobin Oxyhemoglobin Sodium Potassium Chloride Carbon Dioxide BUN Creatinine Glucose POC Glucose Calcium Magnesium Lactate Dehydrogenase 290 H CK-MB (CK-2) CK-MB (CK-2) Rel Index Albumin Ur Specific [place] 1.032 H Urine WBC (Auto) Digoxin Salicylates Acetaminophen 06/19/19 06/19/19 06/19/19 16:40 17:00 23:50 WBC Hgb MCH RDW Plt Count [place] % (Auto) Lymph # Seg Neutrophils % Seg Neuts % (Manual) Lymphocytes % (Manual) Seg Neutrophils # Man Lymphocytes # (Manual) Monocytes # (Manual) D-Dimer ABG pH ABG pO2 54.2 L ABG HCO3 32.1 H ABG O2 Saturation 87.8 L ABG Base Excess 6.3 H ABG Hemoglobin 11.2 L Oxyhemoglobin 85.9 L Sodium Potassium Chloride Carbon Dioxide BUN Creatinine Glucose POC Glucose 137 H 148 H Calcium Magnesium Lactate Dehydrogenase CK-MB (CK-2) CK-MB (CK-2) Rel Index Albumin Ur Specific [place] Urine WBC (Auto) Digoxin Salicylates Acetaminophen 06/20/19 06/20/19 06/20/19 05:14 05:30 05:40 WBC 16.4 H Hgb MCH 25 L RDW 18.3 H Plt Count 79 L [place] % (Auto) Lymph # Seg Neutrophils % Seg Neuts % (Manual) Lymphocytes % (Manual) Seg Neutrophils # Man Lymphocytes # (Manual) Monocytes # (Manual) D-Dimer ABG pH ABG pO2 63.4 L ABG HCO3 32.9 H ABG O2 Saturation 91.8 L ABG Base Excess 6.2 H ABG Hemoglobin 10.4 L Oxyhemoglobin 89.7 L Sodium Potassium Chloride Carbon Dioxide BUN Creatinine Glucose POC Glucose 164 H Calcium Magnesium Lactate Dehydrogenase CK-MB (CK-2) CK-MB (CK-2) Rel Index Albumin Ur Specific [place] Urine WBC (Auto) Digoxin Salicylates Acetaminophen 06/20/19 06/20/19 06/20/19 05:40 12:35 18:32 WBC Hgb MCH RDW Plt Count [place] % (Auto) Lymph # Seg Neutrophils % Seg Neuts % (Manual) Lymphocytes % (Manual) Seg Neutrophils # Man Lymphocytes # (Manual) Monocytes # (Manual) D-Dimer ABG pH ABG pO2 ABG HCO3 ABG O2 Saturation ABG Base Excess ABG Hemoglobin Oxyhemoglobin Sodium Potassium Chloride Carbon Dioxide 31 H BUN 25 H Creatinine 0.3 L Glucose 150 H POC Glucose 162 H 159 H Calcium Magnesium Lactate Dehydrogenase CK-MB (CK-2) CK-MB (CK-2) Rel Index Albumin Ur Specific [place] Urine WBC (Auto) Digoxin Salicylates Acetaminophen 06/21/19 06/21/19 06/21/19 00:12 04:58 04:58 WBC 13.9 H Hgb 9.7 L MCH 25 L RDW 17.9 H Plt Count 85 L [place] % (Auto) Lymph # Seg Neutrophils % Seg Neuts % (Manual) Lymphocytes % (Manual) Seg Neutrophils # Man Lymphocytes # (Manual) Monocytes # (Manual) D-Dimer ABG pH ABG pO2 ABG HCO3 ABG O2 Saturation ABG Base Excess ABG Hemoglobin Oxyhemoglobin Sodium Potassium Chloride Carbon Dioxide 31 H BUN 23 H Creatinine 0.3 L Glucose 142 H POC Glucose 144 H Calcium Magnesium Lactate Dehydrogenase CK-MB (CK-2) CK-MB (CK-2) Rel Index Albumin Ur Specific [place] Urine WBC (Auto) Digoxin Salicylates Acetaminophen 06/21/19 06/21/19 06/21/19 05:42 12:43 23:17 WBC Hgb MCH RDW Plt Count [place] % (Auto) Lymph # Seg Neutrophils % Seg Neuts % (Manual) Lymphocytes % (Manual) Seg Neutrophils # Man Lymphocytes # (Manual) Monocytes # (Manual) D-Dimer ABG pH ABG pO2 ABG HCO3 ABG O2 Saturation ABG Base Excess ABG Hemoglobin Oxyhemoglobin Sodium Potassium Chloride Carbon Dioxide BUN Creatinine Glucose POC Glucose 137 H 118 H 141 H Calcium Magnesium Lactate Dehydrogenase CK-MB (CK-2) CK-MB (CK-2) Rel Index Albumin Ur Specific [place] Urine WBC (Auto) Digoxin Salicylates Acetaminophen 06/22/19 06/22/19 06/22/19 05:28 12:11 18:27 WBC Hgb MCH RDW Plt Count [place] % (Auto) Lymph # Seg Neutrophils % Seg Neuts % (Manual) Lymphocytes % (Manual) Seg Neutrophils # Man Lymphocytes # (Manual) Monocytes # (Manual) D-Dimer ABG pH ABG pO2 ABG HCO3 ABG O2 Saturation ABG Base Excess ABG Hemoglobin Oxyhemoglobin Sodium Potassium Chloride Carbon Dioxide BUN Creatinine Glucose POC Glucose 144 H 138 H 169 H Calcium Magnesium Lactate Dehydrogenase CK-MB (CK-2) CK-MB (CK-2) Rel Index Albumin Ur Specific [place] Urine WBC (Auto) Digoxin Salicylates Acetaminophen 06/23/19 06/23/19 06/23/19 00:12 05:05 05:05 WBC 11.5 H Hgb MCH 25 L RDW 17.5 H Plt Count 98 L [place] % (Auto) Lymph # Seg Neutrophils % Seg Neuts % (Manual) 88.0 H Lymphocytes % (Manual) 4.0 L Seg Neutrophils # Man 10.1 H Lymphocytes # (Manual) 0.5 L Monocytes # (Manual) D-Dimer ABG pH ABG pO2 ABG HCO3 ABG O2 Saturation ABG Base Excess ABG Hemoglobin Oxyhemoglobin Sodium 133 L Potassium 5.3 H Chloride 95.5 L Carbon Dioxide BUN 24 H Creatinine 0.3 L Glucose 168 H POC Glucose 154 H Calcium Magnesium 2.60 H Lactate Dehydrogenase CK-MB (CK-2) CK-MB (CK-2) Rel Index Albumin Ur Specific [place] Urine WBC (Auto) Digoxin Salicylates Acetaminophen 06/23/19 06/23/19 06/23/19 05:15 08:50 12:00 WBC Hgb MCH RDW Plt Count [place] % (Auto) Lymph # Seg Neutrophils % Seg Neuts % (Manual) Lymphocytes % (Manual) Seg Neutrophils # Man Lymphocytes # (Manual) Monocytes # (Manual) D-Dimer ABG pH ABG pO2 56.9 L ABG HCO3 33.2 H ABG O2 Saturation 88.0 L ABG Base Excess 7.0 H ABG Hemoglobin 9.9 L Oxyhemoglobin 86.4 L Sodium Potassium Chloride Carbon Dioxide BUN Creatinine Glucose POC Glucose 174 H 168 H Calcium Magnesium Lactate Dehydrogenase CK-MB (CK-2) CK-MB (CK-2) Rel Index Albumin Ur Specific [place] Urine WBC (Auto) Digoxin Salicylates Acetaminophen 06/23/19 06/23/19 06/24/19 17:54 23:55 04:41 WBC Hgb MCH RDW Plt Count [place] % (Auto) Lymph # Seg Neutrophils % Seg Neuts % (Manual) Lymphocytes % (Manual) Seg Neutrophils # Man Lymphocytes # (Manual) Monocytes # (Manual) D-Dimer ABG pH ABG pO2 ABG HCO3 ABG O2 Saturation ABG Base Excess ABG Hemoglobin Oxyhemoglobin Sodium Potassium Chloride Carbon Dioxide BUN Creatinine Glucose POC Glucose 146 H 145 H Calcium Magnesium Lactate Dehydrogenase CK-MB (CK-2) CK-MB (CK-2) Rel Index Albumin Ur Specific [place] Urine WBC (Auto) Digoxin 0.5 L Salicylates Acetaminophen 06/24/19 06/24/19 06/24/19 05:53 12:01 16:55 WBC Hgb MCH RDW Plt Count [place] % (Auto) Lymph # Seg Neutrophils % Seg Neuts % (Manual) Lymphocytes % (Manual) Seg Neutrophils # Man Lymphocytes # (Manual) Monocytes # (Manual) D-Dimer ABG pH ABG pO2 ABG HCO3 ABG O2 Saturation ABG Base Excess ABG Hemoglobin Oxyhemoglobin Sodium Potassium Chloride Carbon Dioxide BUN Creatinine Glucose POC Glucose 184 H 178 H 152 H Calcium Magnesium Lactate Dehydrogenase CK-MB (CK-2) CK-MB (CK-2) Rel Index Albumin Ur Specific [place] Urine WBC (Auto) Digoxin Salicylates Acetaminophen 06/25/19 06/25/19 06/25/19 00:10 04:37 04:38 WBC 17.9 H Hgb MCH 25 L RDW 18.3 H Plt Count 124 L [place] % (Auto) Lymph # Seg Neutrophils % Seg Neuts % (Manual) 94.0 H Lymphocytes % (Manual) 1.0 L Seg Neutrophils # Man 16.8 H Lymphocytes # (Manual) 0.2 L Monocytes # (Manual) 0.9 H D-Dimer ABG pH ABG pO2 62.7 L ABG HCO3 33.0 H ABG O2 Saturation 91.8 L ABG Base Excess 7.8 H ABG Hemoglobin 10.0 L Oxyhemoglobin 90.2 L Sodium Potassium Chloride Carbon Dioxide BUN Creatinine Glucose POC Glucose 145 H Calcium Magnesium Lactate Dehydrogenase CK-MB (CK-2) CK-MB (CK-2) Rel Index Albumin Ur Specific [place] Urine WBC (Auto) Digoxin Salicylates Acetaminophen 06/25/19 06/25/19 06/25/19 04:38 05:40 12:45 WBC Hgb MCH RDW Plt Count [place] % (Auto) Lymph # Seg Neutrophils % Seg Neuts % (Manual) Lymphocytes % (Manual) Seg Neutrophils # Man Lymphocytes # (Manual) Monocytes # (Manual) D-Dimer ABG pH ABG pO2 ABG HCO3 ABG O2 Saturation ABG Base Excess ABG Hemoglobin Oxyhemoglobin Sodium Potassium Chloride 95.4 L Carbon Dioxide 31 H BUN 22 H Creatinine 0.3 L Glucose 126 H POC Glucose 128 H 169 H Calcium Magnesium Lactate Dehydrogenase CK-MB (CK-2) CK-MB (CK-2) Rel Index Albumin Ur Specific [place] Urine WBC (Auto) Digoxin Salicylates Acetaminophen 06/25/19 06/26/19 06/26/19 16:57 00:30 05:22 WBC Hgb MCH RDW Plt Count [place] % (Auto) Lymph # Seg Neutrophils % Seg Neuts % (Manual) Lymphocytes % (Manual) Seg Neutrophils # Man Lymphocytes # (Manual) Monocytes # (Manual) D-Dimer ABG pH ABG pO2 ABG HCO3 ABG O2 Saturation ABG Base Excess ABG Hemoglobin Oxyhemoglobin Sodium Potassium Chloride Carbon Dioxide BUN Creatinine Glucose POC Glucose 130 H 167 H 155 H Calcium Magnesium Lactate Dehydrogenase CK-MB (CK-2) CK-MB (CK-2) Rel Index Albumin Ur Specific [place] Urine WBC (Auto) Digoxin Salicylates Acetaminophen 06/26/19 06/26/19 06/27/19 12:02 23:57 05:54 WBC Hgb MCH RDW Plt Count [place] % (Auto) Lymph # Seg Neutrophils % Seg Neuts % (Manual) Lymphocytes % (Manual) Seg Neutrophils # Man Lymphocytes # (Manual) Monocytes # (Manual) D-Dimer ABG pH ABG pO2 ABG HCO3 ABG O2 Saturation ABG Base Excess ABG Hemoglobin Oxyhemoglobin Sodium Potassium Chloride Carbon Dioxide BUN Creatinine Glucose POC Glucose 130 H 155 H 152 H Calcium Magnesium Lactate Dehydrogenase CK-MB (CK-2) CK-MB (CK-2) Rel Index Albumin Ur Specific [place] Urine WBC (Auto) Digoxin Salicylates Acetaminophen 06/27/19 06/27/19 06/27/19 12:09 13:41 13:41 WBC 15.0 H Hgb 10.0 L MCH 25 L RDW 17.9 H Plt Count 114 L [place] % (Auto) Lymph # Seg Neutrophils % Seg Neuts % (Manual) 98.0 H Lymphocytes % (Manual) 0 L Seg Neutrophils # Man 14.7 H Lymphocytes # (Manual) 0.0 L Monocytes # (Manual) D-Dimer ABG pH ABG pO2 ABG HCO3 ABG O2 Saturation ABG Base Excess ABG Hemoglobin Oxyhemoglobin Sodium 135 L Potassium Chloride 96.5 L Carbon Dioxide BUN 21 H Creatinine 0.2 L Glucose 161 H POC Glucose 150 H Calcium Magnesium Lactate Dehydrogenase CK-MB (CK-2) CK-MB (CK-2) Rel Index Albumin Ur Specific [place] Urine WBC (Auto) Digoxin Salicylates Acetaminophen 06/27/19 06/28/19 06/28/19 18:03 00:22 00:58 WBC 16.2 H Hgb MCH 25 L RDW 18.2 H Plt Count 130 L [place] % (Auto) Lymph # Seg Neutrophils % Seg Neuts % (Manual) 98.0 H Lymphocytes % (Manual) 0 L Seg Neutrophils # Man 15.9 H Lymphocytes # (Manual) 0.0 L Monocytes # (Manual) D-Dimer ABG pH ABG pO2 ABG HCO3 ABG O2 Saturation ABG Base Excess ABG Hemoglobin Oxyhemoglobin Sodium Potassium Chloride Carbon Dioxide BUN Creatinine Glucose POC Glucose 156 H 150 H Calcium Magnesium Lactate Dehydrogenase CK-MB (CK-2) CK-MB (CK-2) Rel Index Albumin Ur Specific [place] Urine WBC (Auto) Digoxin Salicylates Acetaminophen 06/28/19 06/28/19 06/28/19 00:58 05:19 12:14 WBC Hgb MCH RDW Plt Count [place] % (Auto) Lymph # Seg Neutrophils % Seg Neuts % (Manual) Lymphocytes % (Manual) Seg Neutrophils # Man Lymphocytes # (Manual) Monocytes # (Manual) D-Dimer ABG pH ABG pO2 ABG HCO3 ABG O2 Saturation ABG Base Excess ABG Hemoglobin Oxyhemoglobin Sodium Potassium Chloride 96.5 L Carbon Dioxide 32 H BUN 21 H Creatinine 0.2 L Glucose 140 H POC Glucose 122 H 137 H Calcium Magnesium Lactate Dehydrogenase CK-MB (CK-2) CK-MB (CK-2) Rel Index Albumin Ur Specific [place] Urine WBC (Auto) Digoxin Salicylates Acetaminophen 06/28/19 12:20 WBC Hgb MCH RDW Plt Count [place] % (Auto) Lymph # Seg Neutrophils % Seg Neuts % (Manual) Lymphocytes % (Manual) Seg Neutrophils # Man Lymphocytes # (Manual) Monocytes # (Manual) D-Dimer ABG pH 7.464 H ABG pO2 64.2 L ABG HCO3 33.4 H ABG O2 Saturation 93.7 L ABG Base Excess 8.6 H ABG Hemoglobin 11.2 L Oxyhemoglobin 92.0 L Sodium Potassium Chloride Carbon Dioxide BUN Creatinine Glucose POC Glucose Calcium Magnesium Lactate Dehydrogenase CK-MB (CK-2) CK-MB (CK-2) Rel Index Albumin Ur Specific [place] Urine WBC (Auto) Digoxin Salicylates Acetaminophen Chest x-ray: image reviewed (resolved infiltrates) Allied health notes reviewed: nursing
[2019-06-28] MEDS: CEFEPIME/NS 1 GM/100 ML 1 GM/100 ML BAG IV SCH (17:40)
[2019-06-29] MEDS: methylPREDNISolone Sod Succinate 40 MG/1 ML INJ IV SCH ×7 (00:15→23:50)
[2019-06-29] MEDS: dilTIAZem 30 MG TAB PO SCH ×4 (04:55→21:20)
[2019-06-29] MEDS: INSULIN LISPRO 100 UNIT/ML SUB-Q SCH ×4 (04:59→18:21)
[2019-06-29] MEDS: fentaNYL DRIP Premix 2,000 MCG/100 ML BAG IV SCH (04:59)
[2019-06-29 06:02] LABS: Hematocrit 36.3 % (30.3-42.9); Hemoglobin 11.4 gm/dl (10.1-14.3); Mean Corpuscular HGB Conc 31 % (30-34); Mean Corpuscular Volume 80 fl (79-97); Platelet Count 122 K/mm3 (140-440); Red Blood Count 4.54 M/mm3 (3.65-5.03); Red Cell Distribution Width 18.6 % (13.2-15.2)
[2019-06-29 06:32] LABS: BUN/Creatinine Ratio 130; Blood Urea Nitrogen 26 mg/dL (7-17); Hemolysis Index 6
[2019-06-29 06:46] LABS: Anisocytosis Few; Basophils % (Manual) 0 % (0.0-1.8); Eosinophils % (Manual) 0 % (0.0-4.3); Hypochromasia Few; Total Cells Counted 100
[2019-06-29 06:47] LABS: Ovalocytes Rare; Platelet Estimate Consistent w Auto; Schistocytes Rare; Target Cells Rare
[2019-06-29] MEDS: LORazepam 2 MG/ML VIAL IV PRN ×2 (08:06→18:35)
[2019-06-29] MEDS: VENLAFAXINE 75 MG TAB PO SCH ×3 (08:06→20:28)
[2019-06-29] MEDS: BUDESONIDE 0.5 MG/2 ML NEBU IH SCH ×2 (08:36→21:41)
[2019-06-29] MEDS: IPRATROPIUM/ALBUTEROL SULFATE 3 ML AMPUL.NEB IH SCH ×3 (08:36→21:41)
[2019-06-29] MEDS: ARFORMOTEROL 15 MCG/2 ML NEBU IH SCH ×2 (08:36→21:41)
[2019-06-29] MEDS: LANSOPRAZOLE 30 MG SOLUTAB FEEDTUBE SCH (09:05)
[2019-06-29] MEDS: AMIODARONE 200 MG TAB PO SCH (09:05)
[2019-06-29] MEDS: QUEtiapine 100 MG TAB PO SCH ×2 (09:05→21:18)
[2019-06-29] MEDS: DOCUSATE SODIUM 100 MG/10 ML ORAL LIQD PO SCH ×2 (09:05→21:40)
[2019-06-29] MEDS: MAGNESIUM HYDROXIDE (MOM) ORAL LIQD UDC PO PRN (09:07)
--- NOTE | 2019-06-29 09:09 | Progress Note ---
Assessment and Plan Paroxysmal Atrial flutter/afib/MAT currently in sinus rhythm now on amiodarone and diltiazem for suppression. not on anticoagulation secondary to history of melena and anemia. Respiratory failure s/p intubation COPD exacerbation on home oxygen History of AR/Coronary artery disease EF 45-50% by echo 08/[address] [facility] at [facility]: HOST/HOSTESS of the RCA recommend for medical therapy. She did undergo PCI of the mid LAD using bare metal stent. Recommend: Continue oral Cardizem and Amiodarone as tolerated for paroxysmal atrial flut ter. Otherwise, conservative cardiac management. Subjective Date of service: 06/29/19 Principal diagnosis: Ac and ch hypoxic & hypercapnic resp failure; AE-COPD; Tobacco use disorder Interval history: Stable sinus rhythm on telemetry. Objective Vital Signs Temp Pulse Pulse Pulse Pulse Resp Resp 06/29/19 08:33 70 14 06/29/19 07:30 105 H 12 06/29/19 07:00 101 H 17 06/29/19 06:30 102 H 18 06/29/19 06:00 98 H 20 06/29/19 05:30 90 19 06/29/19 05:08 113 H 06/29/19 05:00 103 H 19 06/29/19 04:55 104 H 06/29/19 04:48 110 H 06/29/19 04:30 06/29/19 04:00 90 108 H 108 H 06/29/19 03:44 98.8 F 06/29/19 03:30 71 06/29/19 03:00 83 06/29/19 02:30 107 H 06/29/19 02:00 98 H 06/29/19 01:30 101 H 06/29/19 01:13 98 H 06/29/19 01:00 109 H 06/29/19 00:30 106 H 06/29/19 00:00 111 H 06/28/19 23:30 106 H 06/28/19 23:11 99.4 F 06/28/19 23:04 106 H 06/28/19 23:02 89 06/28/19 23:00 112 H 89 89 06/28/19 22:30 98 H 06/28/19 22:00 104 H 06/28/19 21:35 108 H 22 06/28/19 21:32 103 H 06/28/19 21:30 109 H 06/28/19 21:13 103 H 06/28/19 21:00 70 06/28/19 20:30 66 06/28/19 20:20 99 F 06/28/19 20:00 98.8 F 91 H 06/28/19 19:59 108 H 108 H 06/28/19 19:30 69 06/28/19 19:00 75 06/28/19 18:30 75 06/28/19 18:00 78 06/28/19 17:30 72 06/28/19 17:00 73 06/28/19 16:30 59 L 06/28/19 16:00 98.8 F 108 H 73 73 06/28/19 15:30 64 06/28/19 15:21 65 11 L 06/28/19 15:00 66 06/28/19 14:30 70 06/28/19 14:00 78 06/28/19 13:30 90 06/28/19 13:03 98 H 18 06/28/19 13:00 90 06/28/19 12:59 79 06/28/19 12:30 94 H 06/28/19 12:00 98.9 F 105 H 75 75 06/28/19 11:51 114 H 20 06/28/19 11:30 119 H 06/28/19 11:00 115 H 06/28/19 10:30 99 H 06/28/19 10:00 73 06/28/19 09:30 62 BP Pulse Ox 06/29/19 08:33 128/91 100 06/29/19 07:30 138/78 97 06/29/19 07:00 150/78 98 06/29/19 06:30 145/88 98 06/29/19 06:00 151/73 97 06/29/19 05:30 151/73 98 06/29/19 05:08 143/68 06/29/19 05:00 143/68 97 06/29/19 04:55 136/67 06/29/19 04:48 136/67 97 06/29/19 04:30 162/78 95 06/29/19 04:00 128/67 98 06/29/19 03:44 06/29/19 03:30 128/67 100 06/29/19 03:00 139/74 99 06/29/19 02:30 133/82 91 06/29/19 02:00 127/73 97 06/29/19 01:30 108/87 98 06/29/19 01:13 108/87 97 06/29/19 01:00 108/87 95 06/29/19 00:30 125/80 97 06/29/19 00:00 117/83 95 06/28/19 23:30 117/83 96 06/28/19 23:11 06/28/19 23:04 155/82 96 06/28/19 23:02 06/28/19 23:00 113/64 94 06/28/19 22:30 113/64 94 06/28/19 22:00 124/69 93 06/28/19 21:35 06/28/19 21:32 120/73 96 06/28/19 21:30 120/73 97 06/28/19 21:13 132/83 06/28/19 21:00 127/67 97 06/28/19 20:30 127/67 100 06/28/19 20:20 06/28/19 20:00 126/77 99 06/28/19 19:59 97 06/28/19 19:30 111/61 98 06/28/19 19:00 113/59 97 06/28/19 18:30 120/63 97 06/28/19 18:00 120/63 95 06/28/19 17:30 113/60 97 06/28/19 17:00 108/59 98 06/28/19 16:30 102/53 100 06/28/19 16:00 102/53 97 06/28/19 15:30 99/55 100 06/28/19 15:21 99/55 96 06/28/19 15:00 99/55 97 06/28/19 14:30 98/52 100 06/28/19 14:00 104/54 100 06/28/19 13:30 134/73 97 06/28/19 13:03 06/28/19 13:00 111/64 99 06/28/19 12:59 110/63 06/28/19 12:30 110/63 97 06/28/19 12:00 113/70 98 06/28/19 11:51 113/70 97 05/11/20 11:30 113/70 95 05/11/20 11:00 110/74 97 06/28/19 10:30 111/58 100 06/28/19 10:00 131/62 99 06/28/19 09:30 126/63 99 - Physical Examination General: Other (intubated) Cardiac: Positive: Reg Rate and Rhythm - Labs and Meds CBC 06/29/19 Range/Units 05:31 WBC 14.3 H (4.5-11.0) K/mm3 RBC 4.54 (3.65-5.03) M/mm3 Hgb 11.4 (10.1-14.3) gm/dl Hct 36.3 (30.3-42.9) % Plt Count 122 L (140-440) K/mm3 Comprehensive Metabolic Panel 06/29/19 Range/Units 05:31 Sodium 137 (137-145) mmol/L Potassium 4.7 (3.6-5.0) mmol/L Chloride 95.6 L (98-107) mmol/L Carbon Dioxide 29 (22-30) mmol/L BUN 26 H (7-17) mg/dL Creatinine 0.2 L (0.7-1.2) mg/dL Glucose 135 H (65-100) mg/dL Calcium 9.0 (8.4-10.2) mg/dL - Allied health notes Allied health notes reviewed: nursing
--- NOTE | 2019-06-29 09:19 | Progress Note ---
Assessment and Plan Cultures: Blood culture 06/11/2019 no growth Sputum culture 06/11/2019 pansensitive Pseudomonas Sputum culture 06/19/2019 Pseudomonas A/P: 59-year-old female past medical history GERD, tobacco abuse, COPD, CAD admitted to the hospital with COPD exacerbation admitted with acute hypoxic respiratory failure #Leukocytosis: on IV solumedrol, better #Pseudomonas pneumonia: patient has been intubated for some time, and previously had Pseudomonas pneumonia. May have some colonization of the tube. Regardless, would continue to treat with Cefepime, and may need up to 14 days treatment for a VAP. #COPD with acute respiratory failure: on the vent. On solumedrol IV #Tobacco abuse #Thrombocytopenia: improving Recs: -monitor leukocytosis abx -taper off IV steroids Will sign off call us if questions Mirtha Hairston MD Infectious Diseases [place] Operator [facility] ([facility]) M [phone] O [phone] Subjective Date of service: 06/29/19 Principal diagnosis: Ac and ch hypoxic & hypercapnic resp failure; AE-COPD; Tobacco use disorder Interval history: Remains intubated no fever Objective - Exam Narrative Exam: General appearance: on the vent Eyes: anicteric sclerae, moist conjunctivae; no lid-lag; PERRLA HENT: Atraumatic; oropharynx limited +ETT Lungs: scattered rhonchi CV: RRR no murmur Abdomen: Soft, non-tender Extremities: no edema, no cyanosis Skin: No rash. Psych: no agitated Neuro: sedated - Constitutional Vitals: Vital Signs Temp Pulse Resp BP Pulse Ox 98.8 F 70 14 128/91 100 06/29/19 03:44 06/29/19 08:33 06/29/19 08:33 06/29/19 08:33 06/29/19 08:33 Temperature -Last 24 Hours Temperature 98.8 F Temperature 99.4 F Temperature 99 F Temperature 98.8 F Temperature 98.8 F Temperature 98.9 F - Labs CBC & Chem 7: 06/29/19 05:31 06/29/19 05:31 Labs: Abnormal lab results 06/28/19 06/28/19 06/28/19 Range/Units 12:14 12:20 17:06 WBC (4.5-11.0) K/mm3 MCH (28-32) pg RDW (13.2-15.2) % Plt Count (140-440) K/mm3 Seg Neuts % (Manual) (40.0-70.0) % Lymphocytes % (Manual) (13.4-35.0) % Seg Neutrophils # Man (1.8-7.7) K/mm3 Lymphocytes # (Manual) (1.2-5.4) K/mm3 ABG pH 7.464 H (7.350-7.450) pH Units ABG pO2 64.2 L (80.0-90.0) mm Hg ABG HCO3 33.4 H (20.0-26.0) mmol/L ABG O2 Saturation 93.7 L (95.0-99.0) % ABG Base Excess 8.6 H (-2.0-3.0) mmol/L ABG Hemoglobin 11.2 L (12.0-16.0) gm/dl Oxyhemoglobin 92.0 L (95.0-99.0) % Chloride (98-107) mmol/L BUN (7-17) mg/dL Creatinine (0.7-1.2) mg/dL Glucose (65-100) mg/dL POC Glucose 137 H 154 H (70-105) 06/29/19 06/29/19 06/29/19 Range/Units 00:20 05:10 05:31 WBC 14.3 H (4.5-11.0) K/mm3 MCH 25 L (28-32) pg RDW 18.6 H (13.2-15.2) % Plt Count 122 L (140-440) K/mm3 Seg Neuts % (Manual) 96.0 H (40.0-70.0) % Lymphocytes % (Manual) 1.0 L (13.4-35.0) % Seg Neutrophils # Man 13.7 H (1.8-7.7) K/mm3 Lymphocytes # (Manual) 0.1 L (1.2-5.4) K/mm3 ABG pH (7.350-7.450) pH Units ABG pO2 (80.0-90.0) mm Hg ABG HCO3 (20.0-26.0) mmol/L ABG O2 Saturation (95.0-99.0) % ABG Base Excess (-2.0-3.0) mmol/L ABG Hemoglobin (12.0-16.0) gm/dl Oxyhemoglobin (95.0-99.0) % Chloride (98-107) mmol/L BUN (7-17) mg/dL Creatinine (0.7-1.2) mg/dL Glucose (65-100) mg/dL POC Glucose 156 H 139 H (70-105) 05/12/20 Range/Units 05:31 WBC (4.5-11.0) K/mm3 MCH (28-32) pg RDW (13.2-15.2) % Plt Count (140-440) K/mm3 Seg Neuts % (Manual) (40.0-70.0) % Lymphocytes % (Manual) (13.4-35.0) % Seg Neutrophils # Man (1.8-7.7) K/mm3 Lymphocytes # (Manual) (1.2-5.4) K/mm3 ABG pH (7.350-7.450) pH Units ABG pO2 (80.0-90.0) mm Hg ABG HCO3 (20.0-26.0) mmol/L ABG O2 Saturation (95.0-99.0) % ABG Base Excess (-2.0-3.0) mmol/L ABG Hemoglobin (12.0-16.0) gm/dl Oxyhemoglobin (95.0-99.0) % Chloride 95.6 L (98-107) mmol/L BUN 26 H (7-17) mg/dL Creatinine 0.2 L (0.7-1.2) mg/dL Glucose 135 H (65-100) mg/dL POC Glucose (70-105)
[2019-06-29] MEDS: ALPRAZolam 0.25 MG TAB PO PRN (14:19)
--- NOTE | 2019-06-29 15:01 | Progress Note ---
Assessment and Plan Acute and chronic hypoxic and hypercapnic respiratory failure: Acute exacerbation of COPD Tobacco use disorder/Nicotine dependence (on going) Hypernatremia History of coronary artery disease/CHF History of HTN Chronic narcotic dependence Chronic back pain Anxiety disorder History of depression; Obesity; BMI 32.2 - reduced Psupp to 10 - keep peep at 8 for now - continue other care as below - continue rate control per cardiology - continue daily SAT and SBT assessment as tolerated - continue supplemental oxygen with restrictive strategies acutely re: severe COPD (PaO2 of 60 with O2 sats 88-90% is acceptable) - VAP bundle addressed (aspiration precautions; HOB > 40 degrees) - continue bronchodilators with pulmonary hygiene per RT - continue airborne, droplet and contact isolation - limit daily CXR's - Avoid benzodiazepine's, reduce the possibility of delirium - Continue with fentanyl, titrate for RASS of 0 to -1 - Maintenance of sleep-wake cycle, avoid delirium - continue enteral nutritional support at goal rate as tolerated - Accuchecks with glycemic control per SSI for target blood glucose of 140-180 mg/dL while critically ill; avoid hypoglycemia - VTE prophylaxis (Lovenox) - Stress ulcer prophylaxis (Prevacid) - continue systemic Steroids - Empiric Antibiotics (Cefepime); de-escalate per ID rec's - Monitor hemodynamics closely - Avoid delirium; Avoid benzodiazepines - Nicotine withdrawal precautions, nicotine patch - In view of ongoing smoking, recurrent hospital admission, will need to re- address advance directives and goals of care, once the patient is able to be a part of that discussion. Will also address smoking cessation again, once she is able to be a part of that discussion - discharge planning ongoing concurrently (LTAC evaluation) - continue other care per attending / other polymer materials consultant's .... re-evaluate in am & prn CONDITION: CRITICAL PROGNOSIS: GUARDED CODE STATUS: FULL CODE The high probability of a clinically significant, sudden or life-threatening deterioration of the respiratory, cardiovascular, neurology, endocrine] system(s) required my full and direct attention, intervention and personal management. The aggregate critical care time was [35] minutes without overlap. Time includes spent on; [x] Data Review and interpretation [x] Patient assessment and monitoring of vital signs [x] Documentation [x] Medication orders and management Subjective Date of service: 06/29/19 Principal diagnosis: Ac and ch hypoxic & hypercapnic resp failure; AE-COPD; Tobacco use disorder Interval history: Patient is seen today for: Ac and ch hypoxic hypercapnic resp failure; AE-COPD; Tobacco use disorder/Nicotine dependence; Hypernatremia; HTN (hypotensive at presentation; Chronic narcotic dependence ; Chronic back pain; Anxiety disorder Seen and examined at bedside; 24-hour events reviewed; nursing and respiratory care staff consulted; no adverse overnight events reported to me; laying in bed; remains on MVS; weaning tenuously intermittently with significant dys-synchrony; no new issues otherwise Objective Vital Signs - 12hr 06/29/19 06/29/19 06/29/19 03:30 03:44 04:00 Temperature 98.8 F Pulse Rate 71 90 Pulse Rate [ Bilateral] Pulse Rate [ 108 H From Monitor] Pulse Rate [ 108 H Right Dorsalis Pedis] Respiratory Rate Respiratory Rate [Bilateral ] Blood Pressure 128/67 128/67 O2 Sat by Pulse 100 98 Oximetry 06/29/19 06/29/19 06/29/19 04:30 04:48 04:55 Temperature Pulse Rate 110 H 104 H Pulse Rate [ Bilateral] Pulse Rate [ From Monitor] Pulse Rate [ Right Dorsalis Pedis] Respiratory Rate Respiratory Rate [Bilateral ] Blood Pressure 162/78 136/67 136/67 O2 Sat by Pulse 95 97 Oximetry 06/29/19 06/29/19 06/29/19 05:00 05:08 05:30 Temperature Pulse Rate 103 H 113 H 90 Pulse Rate [ Bilateral] Pulse Rate [ From Monitor] Pulse Rate [ Right Dorsalis Pedis] Respiratory 19 19 Rate Respiratory Rate [Bilateral ] Blood Pressure 143/68 143/68 151/73 O2 Sat by Pulse 97 98 Oximetry 06/29/19 06/29/19 06/29/19 06:00 06:30 07:00 Temperature Pulse Rate 98 H 102 H 101 H Pulse Rate [ Bilateral] Pulse Rate [ From Monitor] Pulse Rate [ Right Dorsalis Pedis] Respiratory 20 18 17 Rate Respiratory Rate [Bilateral ] Blood Pressure 151/73 145/88 150/78 O2 Sat by Pulse 97 98 98 Oximetry 06/29/19 06/29/19 06/29/19 07:30 08:00 08:30 Temperature 98.2 F Pulse Rate 105 H 74 71 Pulse Rate [ Bilateral] Pulse Rate [ 101 H From Monitor] Pulse Rate [ 101 H Right Dorsalis Pedis] Respiratory 12 15 13 Rate Respiratory Rate [Bilateral ] Blood Pressure 138/78 136/75 113/68 O2 Sat by Pulse 97 99 100 Oximetry 06/29/19 06/29/19 06/29/19 08:33 09:00 09:30 Temperature Pulse Rate 70 62 105 H Pulse Rate [ Bilateral] Pulse Rate [ From Monitor] Pulse Rate [ Right Dorsalis Pedis] Respiratory 14 18 21 Rate Respiratory Rate [Bilateral ] Blood Pressure 128/91 128/91 144/78 O2 Sat by Pulse 100 95 91 Oximetry 06/29/19 06/29/19 06/29/19 09:37 10:00 10:30 Temperature Pulse Rate 91 H 103 H Pulse Rate [ 97 H Bilateral] Pulse Rate [ From Monitor] Pulse Rate [ Right Dorsalis Pedis] Respiratory 14 15 Rate Respiratory 15 Rate [Bilateral ] Blood Pressure 128/91 144/80 O2 Sat by Pulse 97 Oximetry 06/29/19 06/29/19 06/29/19 11:00 11:30 12:00 Temperature Pulse Rate 80 77 75 Pulse Rate [ Bilateral] Pulse Rate [ From Monitor] Pulse Rate [ Right Dorsalis Pedis] Respiratory 15 12 14 Rate Respiratory Rate [Bilateral ] Blood Pressure 144/80 104/56 105/57 O2 Sat by Pulse 100 100 100 Oximetry 06/29/19 06/29/19 12:30 13:50 Temperature Pulse Rate 83 68 Pulse Rate [ Bilateral] Pulse Rate [ From Monitor] Pulse Rate [ Right Dorsalis Pedis] Respiratory 11 L Rate Respiratory Rate [Bilateral ] Blood Pressure 110/62 96/57 O2 Sat by Pulse 100 Oximetry Constitutional: no acute distress, other (elderly looking obese CF, normocephalic on MVS without signidficant dyssynchrony) Eyes: non-icteric ENT: oropharynx moist, other (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) Neck: supple, no lymphadenopathy, no JVD Effort: mildly labored Ascultation: Bilateral: diminished breath sounds, rhonchi Percussion: Bilateral: not dull Cardiovascular: regular rate and rhythm Gastrointestinal: normoactive bowel sounds, soft, non-tender, non-distended Integumentary: normal Extremities: no cyanosis, no edema, pulses normal, no ischemia or petechiae Neurologic: non-focal exam (grossly), pupils equal and round, CN II-XII normal, unable to assess Psychiatric: other (Unable to assess re: AMS) CBC and BMP: 06/29/19 05:31 06/29/19 05:31 ABG, PT/INR, D-dimer: ABG ABG pH 7.464 pH Units (7.350-7.450) H 06/28/19 12:20 ABG pCO2 47.6 mm Hg 06/28/19 12:20 ABG pO2 64.2 mm Hg (80.0-90.0) L 06/28/19 12:20 ABG O2 Saturation 93.7 % (95.0-99.0) L 06/28/19 12:20 PT/INR, D-dimer PT 13.0 Sec. (12.2-14.9) 06/11/19 18:03 INR 0.97 (0.87-1.13) 06/11/19 18:03 D-Dimer 1177.30 ng/mlDDU (0-234) H 06/19/19 14:14 Abnormal lab findings: Abnormal Labs 06/11/19 06/11/19 06/11/19 18:03 18:03 18:03 WBC Hgb MCH 25 L RDW 19.4 H Plt Count 124 L [place] % (Auto) 10.3 H Lymph # 1.1 L Seg Neutrophils % 74.4 H Seg Neuts % (Manual) Lymphocytes % (Manual) Seg Neutrophils # Man Lymphocytes # (Manual) Monocytes # (Manual) D-Dimer ABG pH ABG pO2 ABG HCO3 ABG O2 Saturation ABG Base Excess ABG Hemoglobin Oxyhemoglobin Sodium 146 H Potassium Chloride Carbon Dioxide BUN 21 H Creatinine 0.4 L Glucose POC Glucose Calcium Magnesium 2.70 H Lactate Dehydrogenase CK-MB (CK-2) CK-MB (CK-2) Rel Index Albumin 3.5 L Ur Specific [place] Urine WBC (Auto) Digoxin Salicylates 1.0 L Acetaminophen 06/11/19 06/11/19 06/11/19 18:03 18:59 23:22 WBC Hgb MCH RDW Plt Count [place] % (Auto) Lymph # Seg Neutrophils % Seg Neuts % (Manual) Lymphocytes % (Manual) Seg Neutrophils # Man Lymphocytes # (Manual) Monocytes # (Manual) D-Dimer ABG pH 7.340 L ABG pO2 76.0 L ABG HCO3 34.6 H ABG O2 Saturation ABG Base Excess 7.1 H ABG Hemoglobin 10.9 L Oxyhemoglobin 91.6 L Sodium Potassium Chloride Carbon Dioxide BUN Creatinine Glucose POC Glucose Calcium Magnesium Lactate Dehydrogenase CK-MB (CK-2) 5.5 H CK-MB (CK-2) Rel Index 5.5 H Albumin Ur Specific [place] Urine WBC (Auto) Digoxin Salicylates Acetaminophen < 5.0 L 06/12/19 06/12/19 06/12/19 00:29 02:04 04:20 WBC Hgb MCH RDW Plt Count [place] % (Auto) Lymph # Seg Neutrophils % Seg Neuts % (Manual) Lymphocytes % (Manual) Seg Neutrophils # Man Lymphocytes # (Manual) Monocytes # (Manual) D-Dimer ABG pH 7.313 L ABG pO2 75.3 L ABG HCO3 29.9 H ABG O2 Saturation 94.3 L ABG Base Excess ABG Hemoglobin 10.8 L Oxyhemoglobin 92.0 L Sodium Potassium Chloride Carbon Dioxide BUN Creatinine Glucose POC Glucose 107 H Calcium Magnesium Lactate Dehydrogenase CK-MB (CK-2) CK-MB (CK-2) Rel Index Albumin Ur Specific [place] Urine WBC (Auto) 30.0 H Digoxin Salicylates Acetaminophen 06/12/19 06/12/19 06/12/19 05:09 05:09 05:09 WBC Hgb MCH 25 L RDW 19.4 H Plt Count 114 L [place] % (Auto) Lymph # Seg Neutrophils % Seg Neuts % (Manual) 91.0 H Lymphocytes % (Manual) 7.0 L Seg Neutrophils # Man Lymphocytes # (Manual) 0.4 L Monocytes # (Manual) D-Dimer ABG pH ABG pO2 ABG HCO3 ABG O2 Saturation ABG Base Excess ABG Hemoglobin Oxyhemoglobin Sodium 147 H Potassium Chloride 107.4 H Carbon Dioxide BUN 19 H Creatinine 0.4 L Glucose 110 H POC Glucose Calcium 8.2 L Magnesium Lactate Dehydrogenase CK-MB (CK-2) CK-MB (CK-2) Rel Index 5.4 H Albumin Ur Specific [place] Urine WBC (Auto) Digoxin Salicylates Acetaminophen 06/12/19 06/12/19 06/13/19 06:42 23:21 04:14 WBC Hgb MCH RDW Plt Count [place] % (Auto) Lymph # Seg Neutrophils % Seg Neuts % (Manual) Lymphocytes % (Manual) Seg Neutrophils # Man Lymphocytes # (Manual) Monocytes # (Manual) D-Dimer ABG pH ABG pO2 62.6 L ABG HCO3 29.6 H ABG O2 Saturation 91.0 L ABG Base Excess ABG Hemoglobin 10.3 L Oxyhemoglobin 89.0 L Sodium Potassium Chloride Carbon Dioxide BUN Creatinine Glucose POC Glucose 108 H 106 H Calcium Magnesium Lactate Dehydrogenase CK-MB (CK-2) CK-MB (CK-2) Rel Index Albumin Ur Specific [place] Urine WBC (Auto) Digoxin Salicylates Acetaminophen 06/13/19 06/13/19 06/13/19 04:54 04:54 12:20 WBC Hgb MCH 25 L RDW 19.2 H Plt Count 119 L [place] % (Auto) Lymph # Seg Neutrophils % Seg Neuts % (Manual) 95.0 H Lymphocytes % (Manual) 2.0 L Seg Neutrophils # Man 9.1 H Lymphocytes # (Manual) 0.2 L Monocytes # (Manual) D-Dimer ABG pH ABG pO2 ABG HCO3 ABG O2 Saturation ABG Base Excess ABG Hemoglobin Oxyhemoglobin Sodium 149 H Potassium Chloride 111.4 H Carbon Dioxide BUN 26 H Creatinine 0.5 L Glucose 107 H POC Glucose 125 H Calcium Magnesium Lactate Dehydrogenase CK-MB (CK-2) CK-MB (CK-2) Rel Index Albumin Ur Specific [place] Urine WBC (Auto) Digoxin Salicylates Acetaminophen 06/13/19 06/14/19 06/14/19 17:25 03:44 04:55 WBC Hgb MCH RDW Plt Count [place] % (Auto) Lymph # Seg Neutrophils % Seg Neuts % (Manual) Lymphocytes % (Manual) Seg Neutrophils # Man Lymphocytes # (Manual) Monocytes # (Manual) D-Dimer ABG pH ABG pO2 58.9 L ABG HCO3 29.5 H ABG O2 Saturation 88.7 L ABG Base Excess ABG Hemoglobin 10.2 L Oxyhemoglobin 86.7 L Sodium 150 H Potassium Chloride 110.4 H Carbon Dioxide BUN 20 H Creatinine 0.4 L Glucose 105 H POC Glucose 128 H Calcium Magnesium Lactate Dehydrogenase CK-MB (CK-2) CK-MB (CK-2) Rel Index Albumin Ur Specific [place] Urine WBC (Auto) Digoxin Salicylates Acetaminophen 06/14/19 06/14/19 06/14/19 05:37 11:58 21:00 WBC Hgb MCH RDW Plt Count [place] % (Auto) Lymph # Seg Neutrophils % Seg Neuts % (Manual) Lymphocytes % (Manual) Seg Neutrophils # Man Lymphocytes # (Manual) Monocytes # (Manual) D-Dimer ABG pH 7.321 L ABG pO2 60.0 L ABG HCO3 31.4 H ABG O2 Saturation 87.3 L ABG Base Excess 4.1 H ABG Hemoglobin 10.6 L Oxyhemoglobin 84.8 L Sodium Potassium Chloride Carbon Dioxide BUN Creatinine Glucose POC Glucose 111 H 116 H Calcium Magnesium Lactate Dehydrogenase CK-MB (CK-2) CK-MB (CK-2) Rel Index Albumin Ur Specific [place] Urine WBC (Auto) Digoxin Salicylates Acetaminophen 06/15/19 06/15/19 06/15/19 00:22 03:25 05:08 WBC Hgb MCH RDW Plt Count [place] % (Auto) Lymph # Seg Neutrophils % Seg Neuts % (Manual) Lymphocytes % (Manual) Seg Neutrophils # Man Lymphocytes # (Manual) Monocytes # (Manual) D-Dimer ABG pH 7.317 L ABG pO2 ABG HCO3 31.5 H ABG O2 Saturation ABG Base Excess 4.1 H ABG Hemoglobin 10.4 L Oxyhemoglobin 94.1 L Sodium Potassium Chloride Carbon Dioxide 31 H BUN 23 H Creatinine 0.3 L Glucose 120 H POC Glucose 108 H Calcium Magnesium Lactate Dehydrogenase CK-MB (CK-2) CK-MB (CK-2) Rel Index Albumin Ur Specific [place] Urine WBC (Auto) Digoxin Salicylates Acetaminophen 06/15/19 06/15/19 06/15/19 05:24 11:41 17:38 WBC Hgb MCH RDW Plt Count [place] % (Auto) Lymph # Seg Neutrophils % Seg Neuts % (Manual) Lymphocytes % (Manual) Seg Neutrophils # Man Lymphocytes # (Manual) Monocytes # (Manual) D-Dimer ABG pH ABG pO2 ABG HCO3 ABG O2 Saturation ABG Base Excess ABG Hemoglobin Oxyhemoglobin Sodium Potassium Chloride Carbon Dioxide BUN Creatinine Glucose POC Glucose 111 H 154 H 115 H Calcium Magnesium Lactate Dehydrogenase CK-MB (CK-2) CK-MB (CK-2) Rel Index Albumin Ur Specific [place] Urine WBC (Auto) Digoxin Salicylates Acetaminophen 06/15/19 06/16/19 06/16/19 23:31 03:40 05:18 WBC Hgb MCH RDW Plt Count [place] % (Auto) Lymph # Seg Neutrophils % Seg Neuts % (Manual) Lymphocytes % (Manual) Seg Neutrophils # Man Lymphocytes # (Manual) Monocytes # (Manual) D-Dimer ABG pH 7.313 L ABG pO2 96.4 H ABG HCO3 35.2 H ABG O2 Saturation ABG Base Excess 7.2 H ABG Hemoglobin 10.5 L Oxyhemoglobin 94.9 L Sodium Potassium Chloride Carbon Dioxide BUN Creatinine Glucose POC Glucose 161 H 158 H Calcium Magnesium Lactate Dehydrogenase CK-MB (CK-2) CK-MB (CK-2) Rel Index Albumin Ur Specific [place] Urine WBC (Auto) Digoxin Salicylates Acetaminophen 06/16/19 06/16/19 06/16/19 05:45 05:45 12:06 WBC 12.1 H Hgb MCH 25 L RDW 18.7 H Plt Count 93 L [place] % (Auto) Lymph # Seg Neutrophils % Seg Neuts % (Manual) 97.0 H Lymphocytes % (Manual) 0 L Seg Neutrophils # Man 11.7 H Lymphocytes # (Manual) 0.0 L Monocytes # (Manual) D-Dimer ABG pH ABG pO2 ABG HCO3 ABG O2 Saturation ABG Base Excess ABG Hemoglobin Oxyhemoglobin Sodium Potassium Chloride Carbon Dioxide 33 H BUN 25 H Creatinine 0.3 L Glucose 165 H POC Glucose 178 H Calcium Magnesium Lactate Dehydrogenase CK-MB (CK-2) CK-MB (CK-2) Rel Index Albumin Ur Specific [place] Urine WBC (Auto) Digoxin Salicylates Acetaminophen 06/16/19 06/16/19 06/17/19 17:55 23:42 03:35 WBC Hgb MCH RDW Plt Count [place] % (Auto) Lymph # Seg Neutrophils % Seg Neuts % (Manual) Lymphocytes % (Manual) Seg Neutrophils # Man Lymphocytes # (Manual) Monocytes # (Manual) D-Dimer ABG pH ABG pO2 73.2 L ABG HCO3 35.2 H ABG O2 Saturation 94.5 L ABG Base Excess 8.8 H ABG Hemoglobin 10.7 L Oxyhemoglobin 92.6 L Sodium Potassium Chloride Carbon Dioxide BUN Creatinine Glucose POC Glucose 180 H 160 H Calcium Magnesium Lactate Dehydrogenase CK-MB (CK-2) CK-MB (CK-2) Rel Index Albumin Ur Specific [place] Urine WBC (Auto) Digoxin Salicylates Acetaminophen 06/17/19 06/17/19 06/17/19 04:57 09:45 11:59 WBC 11.7 H Hgb MCH 25 L RDW 18.2 H Plt Count 79 L [place] % (Auto) Lymph # Seg Neutrophils % Seg Neuts % (Manual) 96.0 H Lymphocytes % (Manual) 3.0 L Seg Neutrophils # Man 11.2 H Lymphocytes # (Manual) 0.4 L Monocytes # (Manual) D-Dimer ABG pH ABG pO2 ABG HCO3 ABG O2 Saturation ABG Base Excess ABG Hemoglobin Oxyhemoglobin Sodium Potassium Chloride Carbon Dioxide 34 H BUN 31 H Creatinine 0.3 L Glucose 153 H POC Glucose 163 H Calcium Magnesium Lactate Dehydrogenase CK-MB (CK-2) CK-MB (CK-2) Rel Index Albumin Ur Specific [place] Urine WBC (Auto) Digoxin Salicylates Acetaminophen 06/17/19 06/17/19 06/17/19 12:34 17:33 23:39 WBC Hgb MCH RDW Plt Count [place] % (Auto) Lymph # Seg Neutrophils % Seg Neuts % (Manual) Lymphocytes % (Manual) Seg Neutrophils # Man Lymphocytes # (Manual) Monocytes # (Manual) D-Dimer ABG pH ABG pO2 ABG HCO3 ABG O2 Saturation ABG Base Excess ABG Hemoglobin Oxyhemoglobin Sodium Potassium Chloride Carbon Dioxide BUN Creatinine Glucose POC Glucose 171 H 186 H 161 H Calcium Magnesium Lactate Dehydrogenase CK-MB (CK-2) CK-MB (CK-2) Rel Index Albumin Ur Specific [place] Urine WBC (Auto) Digoxin Salicylates Acetaminophen 06/18/19 06/18/19 06/18/19 04:25 05:23 05:23 WBC 13.2 H Hgb MCH 25 L RDW 18.3 H Plt Count 81 L [place] % (Auto) Lymph # Seg Neutrophils % Seg Neuts % (Manual) 96.0 H Lymphocytes % (Manual) 4.0 L Seg Neutrophils # Man 12.7 H Lymphocytes # (Manual) 0.5 L Monocytes # (Manual) D-Dimer ABG pH ABG pO2 72.9 L ABG HCO3 33.8 H ABG O2 Saturation 94.6 L ABG Base Excess 7.3 H ABG Hemoglobin 11.1 L Oxyhemoglobin 92.8 L Sodium Potassium Chloride Carbon Dioxide 34 H BUN 36 H Creatinine 0.3 L Glucose 162 H POC Glucose Calcium Magnesium Lactate Dehydrogenase CK-MB (CK-2) CK-MB (CK-2) Rel Index Albumin Ur Specific [place] Urine WBC (Auto) Digoxin Salicylates Acetaminophen 06/18/19 06/18/19 06/18/19 05:37 12:26 18:17 WBC Hgb MCH RDW Plt Count [place] % (Auto) Lymph # Seg Neutrophils % Seg Neuts % (Manual) Lymphocytes % (Manual) Seg Neutrophils # Man Lymphocytes # (Manual) Monocytes # (Manual) D-Dimer ABG pH ABG pO2 ABG HCO3 ABG O2 Saturation ABG Base Excess ABG Hemoglobin Oxyhemoglobin Sodium Potassium Chloride Carbon Dioxide BUN Creatinine Glucose POC Glucose 177 H 156 H 134 H Calcium Magnesium Lactate Dehydrogenase CK-MB (CK-2) CK-MB (CK-2) Rel Index Albumin Ur Specific [place] Urine WBC (Auto) Digoxin Salicylates Acetaminophen 06/18/19 06/19/19 06/19/19 23:51 05:58 12:12 WBC Hgb MCH RDW Plt Count [place] % (Auto) Lymph # Seg Neutrophils % Seg Neuts % (Manual) Lymphocytes % (Manual) Seg Neutrophils # Man Lymphocytes # (Manual) Monocytes # (Manual) D-Dimer ABG pH ABG pO2 ABG HCO3 ABG O2 Saturation ABG Base Excess ABG Hemoglobin Oxyhemoglobin Sodium Potassium Chloride Carbon Dioxide BUN Creatinine Glucose POC Glucose 153 H 143 H 186 H Calcium Magnesium Lactate Dehydrogenase CK-MB (CK-2) CK-MB (CK-2) Rel Index Albumin Ur Specific [place] Urine WBC (Auto) Digoxin Salicylates Acetaminophen 06/19/19 06/19/19 06/19/19 12:40 14:14 14:14 WBC Hgb MCH RDW Plt Count [place] % (Auto) Lymph # Seg Neutrophils % Seg Neuts % (Manual) Lymphocytes % (Manual) Seg Neutrophils # Man Lymphocytes # (Manual) Monocytes # (Manual) D-Dimer 1177.30 H ABG pH ABG pO2 ABG HCO3 ABG O2 Saturation ABG Base Excess ABG Hemoglobin Oxyhemoglobin Sodium Potassium Chloride Carbon Dioxide BUN Creatinine Glucose POC Glucose Calcium Magnesium Lactate Dehydrogenase 290 H CK-MB (CK-2) CK-MB (CK-2) Rel Index Albumin Ur Specific [place] 1.032 H Urine WBC (Auto) Digoxin Salicylates Acetaminophen 06/19/19 06/19/19 06/19/19 16:40 17:00 23:50 WBC Hgb MCH RDW Plt Count [place] % (Auto) Lymph # Seg Neutrophils % Seg Neuts % (Manual) Lymphocytes % (Manual) Seg Neutrophils # Man Lymphocytes # (Manual) Monocytes # (Manual) D-Dimer ABG pH ABG pO2 54.2 L ABG HCO3 32.1 H ABG O2 Saturation 87.8 L ABG Base Excess 6.3 H ABG Hemoglobin 11.2 L Oxyhemoglobin 85.9 L Sodium Potassium Chloride Carbon Dioxide BUN Creatinine Glucose POC Glucose 137 H 148 H Calcium Magnesium Lactate Dehydrogenase CK-MB (CK-2) CK-MB (CK-2) Rel Index Albumin Ur Specific [place] Urine WBC (Auto) Digoxin Salicylates Acetaminophen 06/20/19 06/20/19 06/20/19 05:14 05:30 05:40 WBC 16.4 H Hgb MCH 25 L RDW 18.3 H Plt Count 79 L [place] % (Auto) Lymph # Seg Neutrophils % Seg Neuts % (Manual) Lymphocytes % (Manual) Seg Neutrophils # Man Lymphocytes # (Manual) Monocytes # (Manual) D-Dimer ABG pH ABG pO2 63.4 L ABG HCO3 32.9 H ABG O2 Saturation 91.8 L ABG Base Excess 6.2 H ABG Hemoglobin 10.4 L Oxyhemoglobin 89.7 L Sodium Potassium Chloride Carbon Dioxide BUN Creatinine Glucose POC Glucose 164 H Calcium Magnesium Lactate Dehydrogenase CK-MB (CK-2) CK-MB (CK-2) Rel Index Albumin Ur Specific [place] Urine WBC (Auto) Digoxin Salicylates Acetaminophen 06/20/19 06/20/19 06/20/19 05:40 12:35 18:32 WBC Hgb MCH RDW Plt Count [place] % (Auto) Lymph # Seg Neutrophils % Seg Neuts % (Manual) Lymphocytes % (Manual) Seg Neutrophils # Man Lymphocytes # (Manual) Monocytes # (Manual) D-Dimer ABG pH ABG pO2 ABG HCO3 ABG O2 Saturation ABG Base Excess ABG Hemoglobin Oxyhemoglobin Sodium Potassium Chloride Carbon Dioxide 31 H BUN 25 H Creatinine 0.3 L Glucose 150 H POC Glucose 162 H 159 H Calcium Magnesium Lactate Dehydrogenase CK-MB (CK-2) CK-MB (CK-2) Rel Index Albumin Ur Specific [place] Urine WBC (Auto) Digoxin Salicylates Acetaminophen 06/21/19 06/21/19 06/21/19 00:12 04:58 04:58 WBC 13.9 H Hgb 9.7 L MCH 25 L RDW 17.9 H Plt Count 85 L [place] % (Auto) Lymph # Seg Neutrophils % Seg Neuts % (Manual) Lymphocytes % (Manual) Seg Neutrophils # Man Lymphocytes # (Manual) Monocytes # (Manual) D-Dimer ABG pH ABG pO2 ABG HCO3 ABG O2 Saturation ABG Base Excess ABG Hemoglobin Oxyhemoglobin Sodium Potassium Chloride Carbon Dioxide 31 H BUN 23 H Creatinine 0.3 L Glucose 142 H POC Glucose 144 H Calcium Magnesium Lactate Dehydrogenase CK-MB (CK-2) CK-MB (CK-2) Rel Index Albumin Ur Specific [place] Urine WBC (Auto) Digoxin Salicylates Acetaminophen 06/21/19 06/21/19 06/21/19 05:42 12:43 23:17 WBC Hgb MCH RDW Plt Count [place] % (Auto) Lymph # Seg Neutrophils % Seg Neuts % (Manual) Lymphocytes % (Manual) Seg Neutrophils # Man Lymphocytes # (Manual) Monocytes # (Manual) D-Dimer ABG pH ABG pO2 ABG HCO3 ABG O2 Saturation ABG Base Excess ABG Hemoglobin Oxyhemoglobin Sodium Potassium Chloride Carbon Dioxide BUN Creatinine Glucose POC Glucose 137 H 118 H 141 H Calcium Magnesium Lactate Dehydrogenase CK-MB (CK-2) CK-MB (CK-2) Rel Index Albumin Ur Specific [place] Urine WBC (Auto) Digoxin Salicylates Acetaminophen 06/22/19 06/22/19 06/22/19 05:28 12:11 18:27 WBC Hgb MCH RDW Plt Count [place] % (Auto) Lymph # Seg Neutrophils % Seg Neuts % (Manual) Lymphocytes % (Manual) Seg Neutrophils # Man Lymphocytes # (Manual) Monocytes # (Manual) D-Dimer ABG pH ABG pO2 ABG HCO3 ABG O2 Saturation ABG Base Excess ABG Hemoglobin Oxyhemoglobin Sodium Potassium Chloride Carbon Dioxide BUN Creatinine Glucose POC Glucose 144 H 138 H 169 H Calcium Magnesium Lactate Dehydrogenase CK-MB (CK-2) CK-MB (CK-2) Rel Index Albumin Ur Specific [place] Urine WBC (Auto) Digoxin Salicylates Acetaminophen 06/23/19 06/23/19 06/23/19 00:12 05:05 05:05 WBC 11.5 H Hgb MCH 25 L RDW 17.5 H Plt Count 98 L [place] % (Auto) Lymph # Seg Neutrophils % Seg Neuts % (Manual) 88.0 H Lymphocytes % (Manual) 4.0 L Seg Neutrophils # Man 10.1 H Lymphocytes # (Manual) 0.5 L Monocytes # (Manual) D-Dimer ABG pH ABG pO2 ABG HCO3 ABG O2 Saturation ABG Base Excess ABG Hemoglobin Oxyhemoglobin Sodium 133 L Potassium 5.3 H Chloride 95.5 L Carbon Dioxide BUN 24 H Creatinine 0.3 L Glucose 168 H POC Glucose 154 H Calcium Magnesium 2.60 H Lactate Dehydrogenase CK-MB (CK-2) CK-MB (CK-2) Rel Index Albumin Ur Specific [place] Urine WBC (Auto) Digoxin Salicylates Acetaminophen 06/23/19 06/23/19 06/23/19 05:15 08:50 12:00 WBC Hgb MCH RDW Plt Count [place] % (Auto) Lymph # Seg Neutrophils % Seg Neuts % (Manual) Lymphocytes % (Manual) Seg Neutrophils # Man Lymphocytes # (Manual) Monocytes # (Manual) D-Dimer ABG pH ABG pO2 56.9 L ABG HCO3 33.2 H ABG O2 Saturation 88.0 L ABG Base Excess 7.0 H ABG Hemoglobin 9.9 L Oxyhemoglobin 86.4 L Sodium Potassium Chloride Carbon Dioxide BUN Creatinine Glucose POC Glucose 174 H 168 H Calcium Magnesium Lactate Dehydrogenase CK-MB (CK-2) CK-MB (CK-2) Rel Index Albumin Ur Specific [place] Urine WBC (Auto) Digoxin Salicylates Acetaminophen 06/23/19 06/23/19 06/24/19 17:54 23:55 04:41 WBC Hgb MCH RDW Plt Count [place] % (Auto) Lymph # Seg Neutrophils % Seg Neuts % (Manual) Lymphocytes % (Manual) Seg Neutrophils # Man Lymphocytes # (Manual) Monocytes # (Manual) D-Dimer ABG pH ABG pO2 ABG HCO3 ABG O2 Saturation ABG Base Excess ABG Hemoglobin Oxyhemoglobin Sodium Potassium Chloride Carbon Dioxide BUN Creatinine Glucose POC Glucose 146 H 145 H Calcium Magnesium Lactate Dehydrogenase CK-MB (CK-2) CK-MB (CK-2) Rel Index Albumin Ur Specific [place] Urine WBC (Auto) Digoxin 0.5 L Salicylates Acetaminophen 06/24/19 06/24/19 06/24/19 05:53 12:01 16:55 WBC Hgb MCH RDW Plt Count [place] % (Auto) Lymph # Seg Neutrophils % Seg Neuts % (Manual) Lymphocytes % (Manual) Seg Neutrophils # Man Lymphocytes # (Manual) Monocytes # (Manual) D-Dimer ABG pH ABG pO2 ABG HCO3 ABG O2 Saturation ABG Base Excess ABG Hemoglobin Oxyhemoglobin Sodium Potassium Chloride Carbon Dioxide BUN Creatinine Glucose POC Glucose 184 H 178 H 152 H Calcium Magnesium Lactate Dehydrogenase CK-MB (CK-2) CK-MB (CK-2) Rel Index Albumin Ur Specific [place] Urine WBC (Auto) Digoxin Salicylates Acetaminophen 06/25/19 06/25/19 06/25/19 00:10 04:37 04:38 WBC 17.9 H Hgb MCH 25 L RDW 18.3 H Plt Count 124 L [place] % (Auto) Lymph # Seg Neutrophils % Seg Neuts % (Manual) 94.0 H Lymphocytes % (Manual) 1.0 L Seg Neutrophils # Man 16.8 H Lymphocytes # (Manual) 0.2 L Monocytes # (Manual) 0.9 H D-Dimer ABG pH ABG pO2 62.7 L ABG HCO3 33.0 H ABG O2 Saturation 91.8 L ABG Base Excess 7.8 H ABG Hemoglobin 10.0 L Oxyhemoglobin 90.2 L Sodium Potassium Chloride Carbon Dioxide BUN Creatinine Glucose POC Glucose 145 H Calcium Magnesium Lactate Dehydrogenase CK-MB (CK-2) CK-MB (CK-2) Rel Index Albumin Ur Specific [place] Urine WBC (Auto) Digoxin Salicylates Acetaminophen 06/25/19 06/25/19 06/25/19 04:38 05:40 12:45 WBC Hgb MCH RDW Plt Count [place] % (Auto) Lymph # Seg Neutrophils % Seg Neuts % (Manual) Lymphocytes % (Manual) Seg Neutrophils # Man Lymphocytes # (Manual) Monocytes # (Manual) D-Dimer ABG pH ABG pO2 ABG HCO3 ABG O2 Saturation ABG Base Excess ABG Hemoglobin Oxyhemoglobin Sodium Potassium Chloride 95.4 L Carbon Dioxide 31 H BUN 22 H Creatinine 0.3 L Glucose 126 H POC Glucose 128 H 169 H Calcium Magnesium Lactate Dehydrogenase CK-MB (CK-2) CK-MB (CK-2) Rel Index Albumin Ur Specific [place] Urine WBC (Auto) Digoxin Salicylates Acetaminophen 06/25/19 06/26/19 06/26/19 16:57 00:30 05:22 WBC Hgb MCH RDW Plt Count [place] % (Auto) Lymph # Seg Neutrophils % Seg Neuts % (Manual) Lymphocytes % (Manual) Seg Neutrophils # Man Lymphocytes # (Manual) Monocytes # (Manual) D-Dimer ABG pH ABG pO2 ABG HCO3 ABG O2 Saturation ABG Base Excess ABG Hemoglobin Oxyhemoglobin Sodium Potassium Chloride Carbon Dioxide BUN Creatinine Glucose POC Glucose 130 H 167 H 155 H Calcium Magnesium Lactate Dehydrogenase CK-MB (CK-2) CK-MB (CK-2) Rel Index Albumin Ur Specific [place] Urine WBC (Auto) Digoxin Salicylates Acetaminophen 06/26/19 06/26/19 06/27/19 12:02 23:57 05:54 WBC Hgb MCH RDW Plt Count [place] % (Auto) Lymph # Seg Neutrophils % Seg Neuts % (Manual) Lymphocytes % (Manual) Seg Neutrophils # Man Lymphocytes # (Manual) Monocytes # (Manual) D-Dimer ABG pH ABG pO2 ABG HCO3 ABG O2 Saturation ABG Base Excess ABG Hemoglobin Oxyhemoglobin Sodium Potassium Chloride Carbon Dioxide BUN Creatinine Glucose POC Glucose 130 H 155 H 152 H Calcium Magnesium Lactate Dehydrogenase CK-MB (CK-2) CK-MB (CK-2) Rel Index Albumin Ur Specific [place] Urine WBC (Auto) Digoxin Salicylates Acetaminophen 06/27/19 06/27/19 06/27/19 12:09 13:41 13:41 WBC 15.0 H Hgb 10.0 L MCH 25 L RDW 17.9 H Plt Count 114 L [place] % (Auto) Lymph # Seg Neutrophils % Seg Neuts % (Manual) 98.0 H Lymphocytes % (Manual) 0 L Seg Neutrophils # Man 14.7 H Lymphocytes # (Manual) 0.0 L Monocytes # (Manual) D-Dimer ABG pH ABG pO2 ABG HCO3 ABG O2 Saturation ABG Base Excess ABG Hemoglobin Oxyhemoglobin Sodium 135 L Potassium Chloride 96.5 L Carbon Dioxide BUN 21 H Creatinine 0.2 L Glucose 161 H POC Glucose 150 H Calcium Magnesium Lactate Dehydrogenase CK-MB (CK-2) CK-MB (CK-2) Rel Index Albumin Ur Specific [place] Urine WBC (Auto) Digoxin Salicylates Acetaminophen 06/27/19 06/28/19 06/28/19 18:03 00:22 00:58 WBC 16.2 H Hgb MCH 25 L RDW 18.2 H Plt Count 130 L [place] % (Auto) Lymph # Seg Neutrophils % Seg Neuts % (Manual) 98.0 H Lymphocytes % (Manual) 0 L Seg Neutrophils # Man 15.9 H Lymphocytes # (Manual) 0.0 L Monocytes # (Manual) D-Dimer ABG pH ABG pO2 ABG HCO3 ABG O2 Saturation ABG Base Excess ABG Hemoglobin Oxyhemoglobin Sodium Potassium Chloride Carbon Dioxide BUN Creatinine Glucose POC Glucose 156 H 150 H Calcium Magnesium Lactate Dehydrogenase CK-MB (CK-2) CK-MB (CK-2) Rel Index Albumin Ur Specific [place] Urine WBC (Auto) Digoxin Salicylates Acetaminophen 06/28/19 06/28/19 06/28/19 00:58 05:19 12:14 WBC Hgb MCH RDW Plt Count [place] % (Auto) Lymph # Seg Neutrophils % Seg Neuts % (Manual) Lymphocytes % (Manual) Seg Neutrophils # Man Lymphocytes # (Manual) Monocytes # (Manual) D-Dimer ABG pH ABG pO2 ABG HCO3 ABG O2 Saturation ABG Base Excess ABG Hemoglobin Oxyhemoglobin Sodium Potassium Chloride 96.5 L Carbon Dioxide 32 H BUN 21 H Creatinine 0.2 L Glucose 140 H POC Glucose 122 H 137 H Calcium Magnesium Lactate Dehydrogenase CK-MB (CK-2) CK-MB (CK-2) Rel Index Albumin Ur Specific [place] Urine WBC (Auto) Digoxin Salicylates Acetaminophen 06/28/19 06/28/19 06/29/19 12:20 17:06 00:20 WBC Hgb MCH RDW Plt Count [place] % (Auto) Lymph # Seg Neutrophils % Seg Neuts % (Manual) Lymphocytes % (Manual) Seg Neutrophils # Man Lymphocytes # (Manual) Monocytes # (Manual) D-Dimer ABG pH 7.464 H ABG pO2 64.2 L ABG HCO3 33.4 H ABG O2 Saturation 93.7 L ABG Base Excess 8.6 H ABG Hemoglobin 11.2 L Oxyhemoglobin 92.0 L Sodium Potassium Chloride Carbon Dioxide BUN Creatinine Glucose POC Glucose 154 H 156 H Calcium Magnesium Lactate Dehydrogenase CK-MB (CK-2) CK-MB (CK-2) Rel Index Albumin Ur Specific [place] Urine WBC (Auto) Digoxin Salicylates Acetaminophen 06/29/19 06/29/19 06/29/19 05:10 05:31 05:31 WBC 14.3 H Hgb MCH 25 L RDW 18.6 H Plt Count 122 L [place] % (Auto) Lymph # Seg Neutrophils % Seg Neuts % (Manual) 96.0 H Lymphocytes % (Manual) 1.0 L Seg Neutrophils # Man 13.7 H Lymphocytes # (Manual) 0.1 L Monocytes # (Manual) D-Dimer ABG pH ABG pO2 ABG HCO3 ABG O2 Saturation ABG Base Excess ABG Hemoglobin Oxyhemoglobin Sodium Potassium Chloride 95.6 L Carbon Dioxide BUN 26 H Creatinine 0.2 L Glucose 135 H POC Glucose 139 H Calcium Magnesium Lactate Dehydrogenase CK-MB (CK-2) CK-MB (CK-2) Rel Index Albumin Ur Specific [place] Urine WBC (Auto) Digoxin Salicylates Acetaminophen 06/29/19 12:26 WBC Hgb MCH RDW Plt Count [place] % (Auto) Lymph # Seg Neutrophils % Seg Neuts % (Manual) Lymphocytes % (Manual) Seg Neutrophils # Man Lymphocytes # (Manual) Monocytes # (Manual) D-Dimer ABG pH ABG pO2 ABG HCO3 ABG O2 Saturation ABG Base Excess ABG Hemoglobin Oxyhemoglobin Sodium Potassium Chloride Carbon Dioxide BUN Creatinine Glucose POC Glucose 144 H Calcium Magnesium Lactate Dehydrogenase CK-MB (CK-2) CK-MB (CK-2) Rel Index Albumin Ur Specific [place] Urine WBC (Auto) Digoxin Salicylates Acetaminophen Allied health notes reviewed: nursing
--- NOTE | 2019-06-29 15:07 | Progress Note ---
Assessment and Plan /Acute hypoxic and hypercapnic on chronic respiratory failure: On vent > 96 hours Due to acute COPD exacerbation and underlying pneumonia On nebs, steroids, supportive care Wean off as tolerated and extubate,pulmonary following /sepsis/pneumonia/sputum Pseudomonas 06/11/2019; present on admission ID following , continue cefepime Sputum cultures again positive Pseudomonas on 06/19/2019 Negative for COVID-19 /Hypertension; moderate control Continue current antihypertensives and PRN hydralazine /Paroxysmal A. fib/flutter; RVR On amiodarone, digoxin and Cardizem Closely monitor, cardiology following-digoxin adjusted to 0.125 mg every other day per cardiology Changed amiodarone to 100 mg daily No chronic anticoagulation due to history of GI bleed /History of coronary artery disease/CHF EF 45-50% by echo 08/2018 Low-dose Lasix, continue other cardiac meds /Hypernatremia; resolved monitor sodium levels /History of depression; hold antidepressive medications for now as intubated /Ongoing tobacco use; Will financial counselor smoking cessation when patient is more stable /Obesity; BMI 32.2 Patient needs weight reduction when medically stable /Thrombocytopenia; HIT antibody negative --Tube feeding diet; per dietary recommendations --DVT prophylaxis; Lovenox --Full CODE STATUS Restraints in place. Patient is critically ill with poor prognosis Closely monitor the patient and adjust management as needed Follow sales operations consultant recommendations The high probability of a clinically significant, sudden or life threatening deterioration of the [respiratory, CVS] system(s) required my full and direct attention, intervention and personal management. The aggregate critical care time was [31] minutes. This time is in addition to time spent performing reported procedures but includes the following: [x] Data Review and interpretation [x] Patient assessment and monitoring of vital signs [x] Documentation [x] Medication orders and management Critical care time 35 minutes Disposition; placement to LTAC pending Brief history: 59-year-old female patient with significant history of hypertension GERD depression COPD coronary artery disease CHF was admitted through emergency room with acute hypoxic hypercapnic respiratory failure requiring intubation and ventilatory support. Admitted to ICU evaluated by pulmonary critical, cardiology for A. fib flutter with rapid ventricular rate, started on Cardizem and amiodarone. Not a candidate for anticoagulation due to history of severe GI bleeding. Patient had mild hypotension, improved with holding Blood pressure and diuretic meds. Sputum cultures positive for Pseudomonas, on cefepime, ID following. Wean off vent as tolerated and extubate Subjective Date of service: 06/29/19 Principal diagnosis: Ac and ch hypoxic & hypercapnic resp failure; AE-COPD; Tobacco use disorder Interval history: Patient seen and examined. Medical records and medication list reviewed. No acute event overnight noted by the RN. Patient remains on mechanical ventilation, LTAC placement pending Objective - Constitutional Vitals: Vital Signs - 12hr 06/29/19 06/29/19 06/29/19 03:30 03:44 04:00 Temperature 98.8 F Pulse Rate 71 90 Pulse Rate [ Bilateral] Pulse Rate [ 108 H From Monitor] Pulse Rate [ 108 H Right Dorsalis Pedis] Respiratory Rate Respiratory Rate [Bilateral ] Blood Pressure 128/67 128/67 O2 Sat by Pulse 100 98 Oximetry 06/29/19 06/29/19 06/29/19 04:30 04:48 04:55 Temperature Pulse Rate 110 H 104 H Pulse Rate [ Bilateral] Pulse Rate [ From Monitor] Pulse Rate [ Right Dorsalis Pedis] Respiratory Rate Respiratory Rate [Bilateral ] Blood Pressure 162/78 136/67 136/67 O2 Sat by Pulse 95 97 Oximetry 06/29/19 06/29/19 06/29/19 05:00 05:08 05:30 Temperature Pulse Rate 103 H 113 H 90 Pulse Rate [ Bilateral] Pulse Rate [ From Monitor] Pulse Rate [ Right Dorsalis Pedis] Respiratory 19 19 Rate Respiratory Rate [Bilateral ] Blood Pressure 143/68 143/68 151/73 O2 Sat by Pulse 97 98 Oximetry 06/29/19 06/29/19 06/29/19 06:00 06:30 07:00 Temperature Pulse Rate 98 H 102 H 101 H Pulse Rate [ Bilateral] Pulse Rate [ From Monitor] Pulse Rate [ Right Dorsalis Pedis] Respiratory 20 18 17 Rate Respiratory Rate [Bilateral ] Blood Pressure 151/73 145/88 150/78 O2 Sat by Pulse 97 98 98 Oximetry 06/29/19 06/29/19 06/29/19 07:30 08:00 08:30 Temperature 98.2 F Pulse Rate 105 H 74 71 Pulse Rate [ Bilateral] Pulse Rate [ 101 H From Monitor] Pulse Rate [ 101 H Right Dorsalis Pedis] Respiratory 12 15 13 Rate Respiratory Rate [Bilateral ] Blood Pressure 138/78 136/75 113/68 O2 Sat by Pulse 97 99 100 Oximetry 06/29/19 06/29/19 06/29/19 08:33 09:00 09:30 Temperature Pulse Rate 70 62 105 H Pulse Rate [ Bilateral] Pulse Rate [ From Monitor] Pulse Rate [ Right Dorsalis Pedis] Respiratory 14 18 21 Rate Respiratory Rate [Bilateral ] Blood Pressure 128/91 128/91 144/78 O2 Sat by Pulse 100 95 91 Oximetry 06/29/19 06/29/19 06/29/19 09:37 10:00 10:30 Temperature Pulse Rate 91 H 103 H Pulse Rate [ 97 H Bilateral] Pulse Rate [ From Monitor] Pulse Rate [ Right Dorsalis Pedis] Respiratory 14 15 Rate Respiratory 15 Rate [Bilateral ] Blood Pressure 128/91 144/80 O2 Sat by Pulse 97 Oximetry 06/29/19 06/29/19 06/29/19 11:00 11:30 12:00 Temperature Pulse Rate 80 77 75 Pulse Rate [ Bilateral] Pulse Rate [ From Monitor] Pulse Rate [ Right Dorsalis Pedis] Respiratory 15 12 14 Rate Respiratory Rate [Bilateral ] Blood Pressure 144/80 104/56 105/57 O2 Sat by Pulse 100 100 100 Oximetry 06/29/19 06/29/19 06/29/19 12:30 13:50 14:19 Temperature Pulse Rate 83 68 Pulse Rate [ 68 Bilateral] Pulse Rate [ From Monitor] Pulse Rate [ Right Dorsalis Pedis] Respiratory 11 L Rate Respiratory 12 Rate [Bilateral ] Blood Pressure 110/62 96/57 O2 Sat by Pulse 100 Oximetry - Labs CBC & Chem 7: 07/01/19 04:30 07/01/19 04:30 Labs: Abnormal lab results 06/28/19 06/29/19 06/29/19 Range/Units 17:06 00:20 05:10 WBC (4.5-11.0) K/mm3 MCH (28-32) pg RDW (13.2-15.2) % Plt Count (140-440) K/mm3 Seg Neuts % (Manual) (40.0-70.0) % Lymphocytes % (Manual) (13.4-35.0) % Seg Neutrophils # Man (1.8-7.7) K/mm3 Lymphocytes # (Manual) (1.2-5.4) K/mm3 Chloride (98-107) mmol/L BUN (7-17) mg/dL Creatinine (0.7-1.2) mg/dL Glucose (65-100) mg/dL POC Glucose 154 H 156 H 139 H (70-105) 06/29/19 06/29/19 06/29/19 Range/Units 05:31 05:31 12:26 WBC 14.3 H (4.5-11.0) K/mm3 MCH 25 L (28-32) pg RDW 18.6 H (13.2-15.2) % Plt Count 122 L (140-440) K/mm3 Seg Neuts % (Manual) 96.0 H (40.0-70.0) % Lymphocytes % (Manual) 1.0 L (13.4-35.0) % Seg Neutrophils # Man 13.7 H (1.8-7.7) K/mm3 Lymphocytes # (Manual) 0.1 L (1.2-5.4) K/mm3 Chloride 95.6 L (98-107) mmol/L BUN 26 H (7-17) mg/dL Creatinine 0.2 L (0.7-1.2) mg/dL Glucose 135 H (65-100) mg/dL POC Glucose 144 H (70-105)
[2019-06-30] MEDS: fentaNYL DRIP Premix 2,000 MCG/100 ML BAG IV SCH ×2 (02:35→23:02)
[2019-06-30] MEDS: dilTIAZem 30 MG TAB PO SCH ×3 (05:06→21:17)
[2019-06-30] MEDS: methylPREDNISolone Sod Succinate 40 MG/1 ML INJ IV SCH ×2 (05:06→13:47)
[2019-06-30] MEDS: INSULIN LISPRO 100 UNIT/ML SUB-Q SCH ×4 (05:33→19:33)
[2019-06-30] MEDS: IPRATROPIUM/ALBUTEROL SULFATE 3 ML AMPUL.NEB IH SCH ×3 (09:04→21:30)
[2019-06-30] MEDS: BUDESONIDE 0.5 MG/2 ML NEBU IH SCH ×2 (09:04→21:30)
[2019-06-30] MEDS: ARFORMOTEROL 15 MCG/2 ML NEBU IH SCH ×2 (09:04→21:30)
--- NOTE | 2019-06-30 09:40 | Progress Note ---
Assessment and Plan Paroxysmal Atrial flutter/afib/MAT currently in sinus rhythm now on amiodarone and diltiazem for suppression. not on anticoagulation secondary to history of melena and anemia. Respiratory failure s/p intubation COPD exacerbation on home oxygen History of SC/Coronary artery disease EF 45-50% by echo 08/2018 [facility]: APPLICATIONS SCIENTIST of the RCA recommend for medical therapy. She did undergo PCI of the mid LAD using bare metal stent. Recommend: Continue oral Cardizem and Amiodarone as tolerated for paroxysmal atrial flut ter. Otherwise, conservative cardiac management. Subjective Date of service: 06/30/19 Principal diagnosis: Ac and ch hypoxic & hypercapnic resp failure; AE-COPD; Tobacco use disorder Interval history: Stable sinus rhythm on telemetry. Objective Vital Signs Temp Pulse Pulse Pulse Pulse Resp Resp 06/30/19 09:25 91 H 17 06/30/19 09:02 84 15 06/30/19 08:00 75 15 06/30/19 07:30 87 15 06/30/19 07:00 78 17 06/30/19 06:30 78 15 06/30/19 06:00 97 H 16 06/30/19 05:30 72 16 06/30/19 05:06 72 06/30/19 05:00 80 14 06/30/19 04:53 92 H 06/30/19 04:30 73 16 06/30/19 04:00 98.8 F 72 71 71 16 06/30/19 03:30 77 15 06/30/19 03:00 103 H 15 06/30/19 02:30 97 H 15 06/30/19 02:00 101 H 18 06/30/19 01:30 62 16 06/30/19 01:00 63 16 06/30/19 00:35 64 06/30/19 00:30 64 16 06/30/19 00:00 98.4 F 70 71 71 16 06/29/19 23:30 75 16 06/29/19 23:00 79 16 06/29/19 22:30 75 16 06/29/19 22:00 89 16 06/29/19 21:33 64 06/29/19 21:32 63 16 06/29/19 21:30 63 16 06/29/19 21:20 65 06/29/19 21:00 64 16 06/29/19 20:30 66 16 06/29/19 20:00 98.5 F 70 71 71 16 06/29/19 19:30 74 16 06/29/19 19:00 72 16 06/29/19 18:30 104 H 15 06/29/19 18:00 107 H 22 06/29/19 17:42 106 H 06/29/19 17:30 112 H 17 06/29/19 17:00 101 H 16 06/29/19 16:30 65 11 L 06/29/19 16:00 98.1 F 95 H 71 71 15 06/29/19 15:30 68 12 06/29/19 15:00 72 11 L 06/29/19 14:30 73 12 06/29/19 14:19 68 12 06/29/19 14:00 70 13 06/29/19 13:50 68 06/29/19 13:30 70 11 L 06/29/19 13:00 74 14 06/29/19 12:30 83 11 L 06/29/19 12:00 98.1 F 74 101 H 101 H 14 06/29/19 11:30 77 12 06/29/19 11:00 80 15 06/29/19 10:30 103 H 15 06/29/19 10:00 91 H 14 BP Pulse Ox 06/30/19 09:25 06/30/19 09:02 118/79 100 06/30/19 08:00 127/61 97 06/30/19 07:30 118/59 98 06/30/19 07:00 114/63 98 06/30/19 06:30 116/64 98 06/30/19 06:00 132/70 98 06/30/19 05:30 132/70 97 06/30/19 05:06 132/70 06/30/19 05:00 115/64 96 06/30/19 04:53 115/64 99 06/30/19 04:30 111/64 98 06/30/19 04:00 112/70 98 06/30/19 03:30 111/64 97 06/30/19 03:00 112/72 96 06/30/19 02:30 142/85 98 06/30/19 02:00 104/60 92 06/30/19 01:30 104/60 98 06/30/19 01:00 100/60 97 06/30/19 00:35 100/60 96 06/30/19 00:30 100/60 97 06/30/19 00:00 92/57 96 06/29/19 23:30 95/53 97 06/29/19 23:00 97/53 96 06/29/19 22:30 117/73 94 06/29/19 22:00 92/54 97 06/29/19 21:33 92/54 92 06/29/19 21:32 92/54 90 06/29/19 21:30 102/41 93 06/29/19 21:20 102/41 06/29/19 21:00 95/52 91 06/29/19 20:30 95/52 95 06/29/19 20:00 95/52 94 06/29/19 19:30 110/63 93 06/29/19 19:00 119/70 94 06/29/19 18:30 141/81 95 06/29/19 18:00 150/111 92 06/29/19 17:42 150/111 92 06/29/19 17:30 142/73 90 06/29/19 17:00 120/66 96 06/29/19 16:30 118/63 99 06/29/19 16:00 106/59 99 06/29/19 15:30 97/53 100 06/29/19 15:00 97/53 100 06/29/19 14:30 99/52 100 06/29/19 14:19 06/29/19 14:00 99/52 100 06/29/19 13:50 96/57 06/29/19 13:30 96/57 100 06/29/19 13:00 110/62 100 06/29/19 12:30 110/62 100 06/29/19 12:00 105/57 99 06/29/19 11:30 104/56 100 06/29/19 11:00 144/80 100 06/29/19 10:30 144/80 97 06/29/19 10:00 128/91 - Physical Examination General: Other (intubated) Cardiac: Positive: Reg Rate and Rhythm - Allied health notes Allied health notes reviewed: nursing
[2019-06-30] MEDS: LANSOPRAZOLE 30 MG SOLUTAB FEEDTUBE SCH (10:19)
[2019-06-30] MEDS: VENLAFAXINE 75 MG TAB PO SCH ×3 (10:32→21:17)
[2019-06-30] MEDS: DOCUSATE SODIUM 100 MG/10 ML ORAL LIQD PO SCH ×2 (10:32→21:17)
[2019-06-30] MEDS: AMIODARONE 200 MG TAB PO SCH (10:32)
[2019-06-30] MEDS: QUEtiapine 100 MG TAB PO SCH ×2 (10:35→21:17)
--- NOTE | 2019-06-30 14:21 | Progress Note ---
Assessment and Plan /Acute hypoxic and hypercapnic on chronic respiratory failure: On vent > 96 hours Due to acute COPD exacerbation and underlying pneumonia On nebs, steroids, supportive care Wean off as tolerated and extubate,pulmonary following /sepsis/pneumonia/sputum Pseudomonas 06/11/2019; present on admission ID following , continue cefepime Sputum cultures again positive Pseudomonas on 06/19/2019 Negative for COVID-19 /Hypertension; moderate control Continue current antihypertensives and PRN hydralazine /Paroxysmal A. fib/flutter; RVR On amiodarone, digoxin and Cardizem Closely monitor, cardiology following-digoxin adjusted to 0.125 mg every other day per cardiology Changed amiodarone to 100 mg daily No chronic anticoagulation due to history of GI bleed /History of coronary artery disease/CHF EF 45-50% by echo 08/2018 Low-dose Lasix, continue other cardiac meds /Hypernatremia; resolved monitor sodium levels /History of depression; hold antidepressive medications for now as intubated /Ongoing tobacco use; Will career development counselor smoking cessation when patient is more stable /Obesity; BMI 32.2 Patient needs weight reduction when medically stable /Thrombocytopenia; HIT antibody negative --Tube feeding diet; per dietary recommendations --DVT prophylaxis; Lovenox --Full CODE STATUS Restraints in place. Patient is critically ill with poor prognosis Closely monitor the patient and adjust management as needed Follow [employer] consultant recommendations The high probability of a clinically significant, sudden or life threatening deterioration of the [respiratory, CVS] system(s) required my full and direct attention, intervention and personal management. The aggregate critical care time was [31] minutes. This time is in addition to time spent performing reported procedures but includes the following: [x] Data Review and interpretation [x] Patient assessment and monitoring of vital signs [x] Documentation [x] Medication orders and management Critical care time 35 minutes Disposition; placement to LTAC pending Brief history: 59-year-old female patient with significant history of hypertension GERD depression COPD coronary artery disease CHF was admitted through emergency room with acute hypoxic hypercapnic respiratory failure requiring intubation and ventilatory support. Admitted to ICU evaluated by pulmonary critical, cardiology for A. fib flutter with rapid ventricular rate, started on Cardizem and amiodarone. Not a candidate for anticoagulation due to history of severe GI bleeding. Patient had mild hypotension, improved with holding Blood pressure and diuretic meds. Sputum cultures positive for Pseudomonas, on cefepime, ID following. Wean off vent as tolerated and extubate Physical exam: General appearance: Present: no acute distress, well-nourished, obese, other (On vent) - EENT Eyes: Present: PERRL, EOM intact - Neck Neck: Present: supple, normal ROM - Respiratory Respiratory effort: normal Respiratory: bilateral: diminished, rhonchi, negative: rales, wheezing - Cardiovascular Rhythm: regular Heart Sounds: Present: S1 & S2 - Extremities Extremities: no ischemia, No edema - Abdominal General gastrointestinal: soft, non-tender, non-distended, normal bowel sounds - Integumentary Integumentary: Present: clear, warm - Psychiatric Psychiatric: other (Alert and awake on vent) - Neurologic Neurologic: other (On vent) Subjective Date of service: 06/30/19 Principal diagnosis: Ac and ch hypoxic & hypercapnic resp failure; AE-COPD; Tobacco use disorder Interval history: Patient seen and examined. Medical records and medication list reviewed. No acute event overnight noted by the RN. Patient remains on mechanical ventilation, LTAC placement pending Patient appears to be alert on vent Objective - Constitutional Vitals: Vital Signs - 12hr 06/30/19 06/30/19 06/30/19 02:30 03:00 03:30 Temperature Pulse Rate 97 H 103 H 77 Pulse Rate [ Bilateral] Pulse Rate [ From Monitor] Pulse Rate [ Left Dorsalis Pedis] Pulse Rate [ Right Dorsalis Pedis] Respiratory 15 15 15 Rate Respiratory Rate [Bilateral ] Blood Pressure 142/85 112/72 111/64 O2 Sat by Pulse 98 96 97 Oximetry 06/30/19 06/30/19 06/30/19 04:00 04:30 04:53 Temperature 98.8 F Pulse Rate 72 73 92 H Pulse Rate [ Bilateral] Pulse Rate [ 71 From Monitor] Pulse Rate [ Left Dorsalis Pedis] Pulse Rate [ 71 Right Dorsalis Pedis] Respiratory 16 16 Rate Respiratory Rate [Bilateral ] Blood Pressure 112/70 111/64 115/64 O2 Sat by Pulse 98 98 99 Oximetry 06/30/19 06/30/19 06/30/19 05:00 05:06 05:30 Temperature Pulse Rate 80 72 72 Pulse Rate [ Bilateral] Pulse Rate [ From Monitor] Pulse Rate [ Left Dorsalis Pedis] Pulse Rate [ Right Dorsalis Pedis] Respiratory 14 16 Rate Respiratory Rate [Bilateral ] Blood Pressure 115/64 132/70 132/70 O2 Sat by Pulse 96 97 Oximetry 06/30/19 06/30/19 06/30/19 06:00 06:30 07:00 Temperature Pulse Rate 97 H 78 78 Pulse Rate [ Bilateral] Pulse Rate [ From Monitor] Pulse Rate [ Left Dorsalis Pedis] Pulse Rate [ Right Dorsalis Pedis] Respiratory 16 15 17 Rate Respiratory Rate [Bilateral ] Blood Pressure 132/70 116/64 114/63 O2 Sat by Pulse 98 98 98 Oximetry 06/30/19 06/30/19 06/30/19 07:30 08:00 08:30 Temperature 98.7 F Pulse Rate 87 75 75 Pulse Rate [ Bilateral] Pulse Rate [ 72 From Monitor] Pulse Rate [ 72 Left Dorsalis Pedis] Pulse Rate [ 72 Right Dorsalis Pedis] Respiratory 15 15 14 Rate Respiratory Rate [Bilateral ] Blood Pressure 118/59 127/61 117/70 O2 Sat by Pulse 98 100 98 Oximetry 06/30/19 06/30/19 06/30/19 09:00 09:02 09:25 Temperature Pulse Rate 71 84 Pulse Rate [ 91 H Bilateral] Pulse Rate [ From Monitor] Pulse Rate [ Left Dorsalis Pedis] Pulse Rate [ Right Dorsalis Pedis] Respiratory 15 15 Rate Respiratory 17 Rate [Bilateral ] Blood Pressure 119/67 118/79 O2 Sat by Pulse 96 100 Oximetry 06/30/19 06/30/19 06/30/19 09:30 10:00 10:30 Temperature Pulse Rate 89 84 105 H Pulse Rate [ Bilateral] Pulse Rate [ From Monitor] Pulse Rate [ Left Dorsalis Pedis] Pulse Rate [ Right Dorsalis Pedis] Respiratory 13 15 18 Rate Respiratory Rate [Bilateral ] Blood Pressure 118/79 121/76 121/76 O2 Sat by Pulse 97 85 95 Oximetry 06/30/19 06/30/19 06/30/19 11:00 11:30 12:00 Temperature Pulse Rate 102 H 122 H 116 H Pulse Rate [ Bilateral] Pulse Rate [ 95 H From Monitor] Pulse Rate [ 72 Left Dorsalis Pedis] Pulse Rate [ 95 H Right Dorsalis Pedis] Respiratory 18 18 14 Rate Respiratory Rate [Bilateral ] Blood Pressure 97/70 121/82 121/82 O2 Sat by Pulse 92 92 94 Oximetry 06/30/19 06/30/19 12:12 12:30 Temperature Pulse Rate 118 H 115 H Pulse Rate [ Bilateral] Pulse Rate [ From Monitor] Pulse Rate [ Left Dorsalis Pedis] Pulse Rate [ Right Dorsalis Pedis] Respiratory 21 23 Rate Respiratory Rate [Bilateral ] Blood Pressure 121/82 O2 Sat by Pulse 98 92 Oximetry - Labs CBC & Chem 7: 07/01/19 04:30 07/01/19 04:30 Labs: Abnormal lab results 06/29/19 06/30/19 06/30/19 Range/Units 18:10 00:41 05:11 POC Glucose 153 H 127 H 151 H (70-105) 06/30/19 Range/Units 11:52 POC Glucose 136 H (70-105)
--- NOTE | 2019-06-30 16:31 | Progress Note ---
Assessment and Plan Acute and chronic hypoxic and hypercapnic respiratory failure: Acute exacerbation of COPD Tobacco use disorder/Nicotine dependence (on going) Hypernatremia History of coronary artery disease/CHF History of HTN Chronic narcotic dependence Chronic back pain Anxiety disorder History of depression; Obesity; BMI 32.2 -continue PSV trial through day as tolerated (she has failed after a few hours prior) - keep peep at 8 for now - continue other care as below - continue rate control per cardiology - continue daily SAT and SBT assessment as tolerated - continue supplemental oxygen with restrictive strategies acutely re: severe COPD (PaO2 of 60 with O2 sats 88-90% is acceptable) - VAP bundle addressed (aspiration precautions; HOB > 40 degrees) - continue bronchodilators with pulmonary hygiene per RT - continue airborne, droplet and contact isolation - limit daily CXR's - Avoid benzodiazepine's, reduce the possibility of delirium - Continue with fentanyl, titrate for RASS of 0 to -1 - Maintenance of sleep-wake cycle, avoid delirium - continue enteral nutritional support at goal rate as tolerated - Accuchecks with glycemic control per SSI for target blood glucose of 140-180 mg/dL while critically ill; avoid hypoglycemia - VTE prophylaxis (Lovenox) - Stress ulcer prophylaxis (Prevacid) - continue systemic Steroids - Empiric Antibiotics (Cefepime); de-escalate per ID rec's - Monitor hemodynamics closely - Avoid delirium; Avoid benzodiazepines - Nicotine withdrawal precautions, nicotine patch - In view of ongoing smoking, recurrent hospital admission, will need to re- address advance directives and goals of care, once the patient is able to be a part of that discussion. Will also address smoking cessation again, once she is able to be a part of that discussion - discharge planning ongoing concurrently (LTAC evaluation) - continue other care per attending / other [employer] consultant's .... re-evaluate in am & prn CONDITION: CRITICAL PROGNOSIS: GUARDED CODE STATUS: FULL CODE The high probability of a clinically significant, sudden or life-threatening deterioration of the respiratory, cardiovascular, neurology, endocrine] system(s) required my full and direct attention, intervention and personal management. The aggregate critical care time was [31] minutes without overlap. Time includes spent on; [x] Data Review and interpretation [x] Patient assessment and monitoring of vital signs [x] Documentation [x] Medication orders and management Subjective Date of service: 06/30/19 Principal diagnosis: Ac and ch hypoxic & hypercapnic resp failure; AE-COPD; Tobacco use disorder Interval history: Patient is seen today for: Ac and ch hypoxic hypercapnic resp failure; AE-COPD; Tobacco use disorder/Nicotine dependence; Hypernatremia; HTN (hypotensive at presentation; Chronic narcotic dependence ; Chronic back pain; Anxiety disorder Seen and examined at bedside; 24-hour events reviewed; nursing and respiratory care staff consulted; no adverse overnight events reported to me; laying in bed; remains on MVS; tolerating SBT better today; No N/V/F/C Objective Vital Signs - 12hr 06/30/19 06/30/19 06/30/19 04:53 05:00 05:06 Temperature Pulse Rate 92 H 80 72 Pulse Rate [ Bilateral] Pulse Rate [ From Monitor] Pulse Rate [ Left Dorsalis Pedis] Pulse Rate [ Right Dorsalis Pedis] Respiratory 14 Rate Respiratory Rate [Bilateral ] Blood Pressure 115/64 115/64 132/70 O2 Sat by Pulse 99 96 Oximetry 06/30/19 06/30/19 06/30/19 05:30 06:00 06:30 Temperature Pulse Rate 72 97 H 78 Pulse Rate [ Bilateral] Pulse Rate [ From Monitor] Pulse Rate [ Left Dorsalis Pedis] Pulse Rate [ Right Dorsalis Pedis] Respiratory 16 16 15 Rate Respiratory Rate [Bilateral ] Blood Pressure 132/70 132/70 116/64 O2 Sat by Pulse 97 98 98 Oximetry 06/30/19 06/30/19 06/30/19 07:00 07:30 08:00 Temperature 98.7 F Pulse Rate 78 87 75 Pulse Rate [ Bilateral] Pulse Rate [ 72 From Monitor] Pulse Rate [ 72 Left Dorsalis Pedis] Pulse Rate [ 72 Right Dorsalis Pedis] Respiratory 17 15 15 Rate Respiratory Rate [Bilateral ] Blood Pressure 114/63 118/59 127/61 O2 Sat by Pulse 98 98 100 Oximetry 06/30/19 06/30/19 06/30/19 08:30 09:00 09:02 Temperature Pulse Rate 75 71 84 Pulse Rate [ Bilateral] Pulse Rate [ From Monitor] Pulse Rate [ Left Dorsalis Pedis] Pulse Rate [ Right Dorsalis Pedis] Respiratory 14 15 15 Rate Respiratory Rate [Bilateral ] Blood Pressure 117/70 119/67 118/79 O2 Sat by Pulse 98 96 100 Oximetry 06/30/19 06/30/19 06/30/19 09:25 09:30 10:00 Temperature Pulse Rate 89 84 Pulse Rate [ 91 H Bilateral] Pulse Rate [ From Monitor] Pulse Rate [ Left Dorsalis Pedis] Pulse Rate [ Right Dorsalis Pedis] Respiratory 13 15 Rate Respiratory 17 Rate [Bilateral ] Blood Pressure 118/79 121/76 O2 Sat by Pulse 97 85 Oximetry 06/30/19 06/30/19 06/30/19 10:30 11:00 11:30 Temperature Pulse Rate 105 H 102 H 122 H Pulse Rate [ Bilateral] Pulse Rate [ From Monitor] Pulse Rate [ Left Dorsalis Pedis] Pulse Rate [ Right Dorsalis Pedis] Respiratory 18 18 18 Rate Respiratory Rate [Bilateral ] Blood Pressure 121/76 97/70 121/82 O2 Sat by Pulse 95 92 92 Oximetry 06/30/19 06/30/19 06/30/19 12:00 12:12 12:30 Temperature 98.9 F Pulse Rate 116 H 118 H 115 H Pulse Rate [ Bilateral] Pulse Rate [ 95 H From Monitor] Pulse Rate [ 72 Left Dorsalis Pedis] Pulse Rate [ 95 H Right Dorsalis Pedis] Respiratory 14 21 23 Rate Respiratory Rate [Bilateral ] Blood Pressure 121/82 121/82 O2 Sat by Pulse 94 98 92 Oximetry 06/30/19 06/30/19 06/30/19 13:00 13:30 14:00 Temperature Pulse Rate 103 H 106 H 99 H Pulse Rate [ Bilateral] Pulse Rate [ From Monitor] Pulse Rate [ Left Dorsalis Pedis] Pulse Rate [ Right Dorsalis Pedis] Respiratory 16 19 19 Rate Respiratory Rate [Bilateral ] Blood Pressure 116/67 131/77 139/83 O2 Sat by Pulse 94 93 Oximetry 06/30/19 06/30/19 06/30/19 14:27 14:30 15:00 Temperature Pulse Rate 83 91 H Pulse Rate [ 82 Bilateral] Pulse Rate [ From Monitor] Pulse Rate [ Left Dorsalis Pedis] Pulse Rate [ Right Dorsalis Pedis] Respiratory 15 18 Rate Respiratory 15 Rate [Bilateral ] Blood Pressure 129/78 129/78 O2 Sat by Pulse 92 95 Oximetry 06/30/19 15:30 Temperature Pulse Rate 84 Pulse Rate [ Bilateral] Pulse Rate [ From Monitor] Pulse Rate [ Left Dorsalis Pedis] Pulse Rate [ Right Dorsalis Pedis] Respiratory 13 Rate Respiratory Rate [Bilateral ] Blood Pressure 120/48 O2 Sat by Pulse 94 Oximetry Constitutional: no acute distress, other (elderly looking obese CF, normocephalic on MVS without signidficant dyssynchrony) Eyes: non-icteric ENT: oropharynx moist, other (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) Neck: supple, no lymphadenopathy, no JVD Effort: mildly labored Ascultation: Bilateral: diminished breath sounds, rhonchi Percussion: Bilateral: not dull Cardiovascular: regular rate and rhythm Gastrointestinal: normoactive bowel sounds, soft, non-tender, non-distended Integumentary: normal Extremities: no cyanosis, no edema, pulses normal, no ischemia or petechiae Neurologic: non-focal exam (grossly), pupils equal and round, CN II-XII normal, unable to assess Psychiatric: other (Unable to assess re: AMS) CBC and BMP: 07/01/19 04:30 07/01/19 04:30 ABG, PT/INR, D-dimer: ABG ABG pH 7.464 pH Units (7.350-7.450) H 06/28/19 12:20 ABG pCO2 47.6 mm Hg 06/28/19 12:20 ABG pO2 64.2 mm Hg (80.0-90.0) L 06/28/19 12:20 ABG O2 Saturation 93.7 % (95.0-99.0) L 06/28/19 12:20 PT/INR, D-dimer PT 13.0 Sec. (12.2-14.9) 06/11/19 18:03 INR 0.97 (0.87-1.13) 06/11/19 18:03 D-Dimer 1177.30 ng/mlDDU (0-234) H 06/19/19 14:14 Abnormal lab findings: Abnormal Labs 06/11/19 06/11/19 06/11/19 18:03 18:03 18:03 WBC Hgb MCH 25 L RDW 19.4 H Plt Count 124 L [place] % (Auto) 10.3 H Lymph # 1.1 L Seg Neutrophils % 74.4 H Seg Neuts % (Manual) Lymphocytes % (Manual) Seg Neutrophils # Man Lymphocytes # (Manual) Monocytes # (Manual) D-Dimer ABG pH ABG pO2 ABG HCO3 ABG O2 Saturation ABG Base Excess ABG Hemoglobin Oxyhemoglobin Sodium 146 H Potassium Chloride Carbon Dioxide BUN 21 H Creatinine 0.4 L Glucose POC Glucose Calcium Magnesium 2.70 H Lactate Dehydrogenase CK-MB (CK-2) CK-MB (CK-2) Rel Index Albumin 3.5 L Ur Specific [place] Urine WBC (Auto) Digoxin Salicylates 1.0 L Acetaminophen 06/11/19 06/11/19 06/11/19 18:03 18:59 23:22 WBC Hgb MCH RDW Plt Count [place] % (Auto) Lymph # Seg Neutrophils % Seg Neuts % (Manual) Lymphocytes % (Manual) Seg Neutrophils # Man Lymphocytes # (Manual) Monocytes # (Manual) D-Dimer ABG pH 7.340 L ABG pO2 76.0 L ABG HCO3 34.6 H ABG O2 Saturation ABG Base Excess 7.1 H ABG Hemoglobin 10.9 L Oxyhemoglobin 91.6 L Sodium Potassium Chloride Carbon Dioxide BUN Creatinine Glucose POC Glucose Calcium Magnesium Lactate Dehydrogenase CK-MB (CK-2) 5.5 H CK-MB (CK-2) Rel Index 5.5 H Albumin Ur Specific [place] Urine WBC (Auto) Digoxin Salicylates Acetaminophen < 5.0 L 06/12/19 06/12/19 06/12/19 00:29 02:04 04:20 WBC Hgb MCH RDW Plt Count [place] % (Auto) Lymph # Seg Neutrophils % Seg Neuts % (Manual) Lymphocytes % (Manual) Seg Neutrophils # Man Lymphocytes # (Manual) Monocytes # (Manual) D-Dimer ABG pH 7.313 L ABG pO2 75.3 L ABG HCO3 29.9 H ABG O2 Saturation 94.3 L ABG Base Excess ABG Hemoglobin 10.8 L Oxyhemoglobin 92.0 L Sodium Potassium Chloride Carbon Dioxide BUN Creatinine Glucose POC Glucose 107 H Calcium Magnesium Lactate Dehydrogenase CK-MB (CK-2) CK-MB (CK-2) Rel Index Albumin Ur Specific [place] Urine WBC (Auto) 30.0 H Digoxin Salicylates Acetaminophen 06/12/19 06/12/19 06/12/19 05:09 05:09 05:09 WBC Hgb MCH 25 L RDW 19.4 H Plt Count 114 L [place] % (Auto) Lymph # Seg Neutrophils % Seg Neuts % (Manual) 91.0 H Lymphocytes % (Manual) 7.0 L Seg Neutrophils # Man Lymphocytes # (Manual) 0.4 L Monocytes # (Manual) D-Dimer ABG pH ABG pO2 ABG HCO3 ABG O2 Saturation ABG Base Excess ABG Hemoglobin Oxyhemoglobin Sodium 147 H Potassium Chloride 107.4 H Carbon Dioxide BUN 19 H Creatinine 0.4 L Glucose 110 H POC Glucose Calcium 8.2 L Magnesium Lactate Dehydrogenase CK-MB (CK-2) CK-MB (CK-2) Rel Index 5.4 H Albumin Ur Specific [place] Urine WBC (Auto) Digoxin Salicylates Acetaminophen 06/12/19 06/12/19 06/13/19 06:42 23:21 04:14 WBC Hgb MCH RDW Plt Count [place] % (Auto) Lymph # Seg Neutrophils % Seg Neuts % (Manual) Lymphocytes % (Manual) Seg Neutrophils # Man Lymphocytes # (Manual) Monocytes # (Manual) D-Dimer ABG pH ABG pO2 62.6 L ABG HCO3 29.6 H ABG O2 Saturation 91.0 L ABG Base Excess ABG Hemoglobin 10.3 L Oxyhemoglobin 89.0 L Sodium Potassium Chloride Carbon Dioxide BUN Creatinine Glucose POC Glucose 108 H 106 H Calcium Magnesium Lactate Dehydrogenase CK-MB (CK-2) CK-MB (CK-2) Rel Index Albumin Ur Specific [place] Urine WBC (Auto) Digoxin Salicylates Acetaminophen 06/13/19 06/13/19 06/13/19 04:54 04:54 12:20 WBC Hgb MCH 25 L RDW 19.2 H Plt Count 119 L [place] % (Auto) Lymph # Seg Neutrophils % Seg Neuts % (Manual) 95.0 H Lymphocytes % (Manual) 2.0 L Seg Neutrophils # Man 9.1 H Lymphocytes # (Manual) 0.2 L Monocytes # (Manual) D-Dimer ABG pH ABG pO2 ABG HCO3 ABG O2 Saturation ABG Base Excess ABG Hemoglobin Oxyhemoglobin Sodium 149 H Potassium Chloride 111.4 H Carbon Dioxide BUN 26 H Creatinine 0.5 L Glucose 107 H POC Glucose 125 H Calcium Magnesium Lactate Dehydrogenase CK-MB (CK-2) CK-MB (CK-2) Rel Index Albumin Ur Specific [place] Urine WBC (Auto) Digoxin Salicylates Acetaminophen 06/13/19 06/14/19 06/14/19 17:25 03:44 04:55 WBC Hgb MCH RDW Plt Count [place] % (Auto) Lymph # Seg Neutrophils % Seg Neuts % (Manual) Lymphocytes % (Manual) Seg Neutrophils # Man Lymphocytes # (Manual) Monocytes # (Manual) D-Dimer ABG pH ABG pO2 58.9 L ABG HCO3 29.5 H ABG O2 Saturation 88.7 L ABG Base Excess ABG Hemoglobin 10.2 L Oxyhemoglobin 86.7 L Sodium 150 H Potassium Chloride 110.4 H Carbon Dioxide BUN 20 H Creatinine 0.4 L Glucose 105 H POC Glucose 128 H Calcium Magnesium Lactate Dehydrogenase CK-MB (CK-2) CK-MB (CK-2) Rel Index Albumin Ur Specific [place] Urine WBC (Auto) Digoxin Salicylates Acetaminophen 06/14/19 06/14/19 06/14/19 05:37 11:58 21:00 WBC Hgb MCH RDW Plt Count [place] % (Auto) Lymph # Seg Neutrophils % Seg Neuts % (Manual) Lymphocytes % (Manual) Seg Neutrophils # Man Lymphocytes # (Manual) Monocytes # (Manual) D-Dimer ABG pH 7.321 L ABG pO2 60.0 L ABG HCO3 31.4 H ABG O2 Saturation 87.3 L ABG Base Excess 4.1 H ABG Hemoglobin 10.6 L Oxyhemoglobin 84.8 L Sodium Potassium Chloride Carbon Dioxide BUN Creatinine Glucose POC Glucose 111 H 116 H Calcium Magnesium Lactate Dehydrogenase CK-MB (CK-2) CK-MB (CK-2) Rel Index Albumin Ur Specific [place] Urine WBC (Auto) Digoxin Salicylates Acetaminophen 06/15/19 06/15/19 06/15/19 00:22 03:25 05:08 WBC Hgb MCH RDW Plt Count [place] % (Auto) Lymph # Seg Neutrophils % Seg Neuts % (Manual) Lymphocytes % (Manual) Seg Neutrophils # Man Lymphocytes # (Manual) Monocytes # (Manual) D-Dimer ABG pH 7.317 L ABG pO2 ABG HCO3 31.5 H ABG O2 Saturation ABG Base Excess 4.1 H ABG Hemoglobin 10.4 L Oxyhemoglobin 94.1 L Sodium Potassium Chloride Carbon Dioxide 31 H BUN 23 H Creatinine 0.3 L Glucose 120 H POC Glucose 108 H Calcium Magnesium Lactate Dehydrogenase CK-MB (CK-2) CK-MB (CK-2) Rel Index Albumin Ur Specific [place] Urine WBC (Auto) Digoxin Salicylates Acetaminophen 06/15/19 06/15/19 06/15/19 05:24 11:41 17:38 WBC Hgb MCH RDW Plt Count [place] % (Auto) Lymph # Seg Neutrophils % Seg Neuts % (Manual) Lymphocytes % (Manual) Seg Neutrophils # Man Lymphocytes # (Manual) Monocytes # (Manual) D-Dimer ABG pH ABG pO2 ABG HCO3 ABG O2 Saturation ABG Base Excess ABG Hemoglobin Oxyhemoglobin Sodium Potassium Chloride Carbon Dioxide BUN Creatinine Glucose POC Glucose 111 H 154 H 115 H Calcium Magnesium Lactate Dehydrogenase CK-MB (CK-2) CK-MB (CK-2) Rel Index Albumin Ur Specific [place] Urine WBC (Auto) Digoxin Salicylates Acetaminophen 06/15/19 06/16/19 06/16/19 23:31 03:40 05:18 WBC Hgb MCH RDW Plt Count [place] % (Auto) Lymph # Seg Neutrophils % Seg Neuts % (Manual) Lymphocytes % (Manual) Seg Neutrophils # Man Lymphocytes # (Manual) Monocytes # (Manual) D-Dimer ABG pH 7.313 L ABG pO2 96.4 H ABG HCO3 35.2 H ABG O2 Saturation ABG Base Excess 7.2 H ABG Hemoglobin 10.5 L Oxyhemoglobin 94.9 L Sodium Potassium Chloride Carbon Dioxide BUN Creatinine Glucose POC Glucose 161 H 158 H Calcium Magnesium Lactate Dehydrogenase CK-MB (CK-2) CK-MB (CK-2) Rel Index Albumin Ur Specific [place] Urine WBC (Auto) Digoxin Salicylates Acetaminophen 06/16/19 06/16/19 06/16/19 05:45 05:45 12:06 WBC 12.1 H Hgb MCH 25 L RDW 18.7 H Plt Count 93 L [place] % (Auto) Lymph # Seg Neutrophils % Seg Neuts % (Manual) 97.0 H Lymphocytes % (Manual) 0 L Seg Neutrophils # Man 11.7 H Lymphocytes # (Manual) 0.0 L Monocytes # (Manual) D-Dimer ABG pH ABG pO2 ABG HCO3 ABG O2 Saturation ABG Base Excess ABG Hemoglobin Oxyhemoglobin Sodium Potassium Chloride Carbon Dioxide 33 H BUN 25 H Creatinine 0.3 L Glucose 165 H POC Glucose 178 H Calcium Magnesium Lactate Dehydrogenase CK-MB (CK-2) CK-MB (CK-2) Rel Index Albumin Ur Specific [place] Urine WBC (Auto) Digoxin Salicylates Acetaminophen 06/16/19 06/16/19 06/17/19 17:55 23:42 03:35 WBC Hgb MCH RDW Plt Count [place] % (Auto) Lymph # Seg Neutrophils % Seg Neuts % (Manual) Lymphocytes % (Manual) Seg Neutrophils # Man Lymphocytes # (Manual) Monocytes # (Manual) D-Dimer ABG pH ABG pO2 73.2 L ABG HCO3 35.2 H ABG O2 Saturation 94.5 L ABG Base Excess 8.8 H ABG Hemoglobin 10.7 L Oxyhemoglobin 92.6 L Sodium Potassium Chloride Carbon Dioxide BUN Creatinine Glucose POC Glucose 180 H 160 H Calcium Magnesium Lactate Dehydrogenase CK-MB (CK-2) CK-MB (CK-2) Rel Index Albumin Ur Specific [place] Urine WBC (Auto) Digoxin Salicylates Acetaminophen 06/17/19 06/17/19 06/17/19 04:57 09:45 11:59 WBC 11.7 H Hgb MCH 25 L RDW 18.2 H Plt Count 79 L [place] % (Auto) Lymph # Seg Neutrophils % Seg Neuts % (Manual) 96.0 H Lymphocytes % (Manual) 3.0 L Seg Neutrophils # Man 11.2 H Lymphocytes # (Manual) 0.4 L Monocytes # (Manual) D-Dimer ABG pH ABG pO2 ABG HCO3 ABG O2 Saturation ABG Base Excess ABG Hemoglobin Oxyhemoglobin Sodium Potassium Chloride Carbon Dioxide 34 H BUN 31 H Creatinine 0.3 L Glucose 153 H POC Glucose 163 H Calcium Magnesium Lactate Dehydrogenase CK-MB (CK-2) CK-MB (CK-2) Rel Index Albumin Ur Specific [place] Urine WBC (Auto) Digoxin Salicylates Acetaminophen 06/17/19 06/17/19 06/17/19 12:34 17:33 23:39 WBC Hgb MCH RDW Plt Count [place] % (Auto) Lymph # Seg Neutrophils % Seg Neuts % (Manual) Lymphocytes % (Manual) Seg Neutrophils # Man Lymphocytes # (Manual) Monocytes # (Manual) D-Dimer ABG pH ABG pO2 ABG HCO3 ABG O2 Saturation ABG Base Excess ABG Hemoglobin Oxyhemoglobin Sodium Potassium Chloride Carbon Dioxide BUN Creatinine Glucose POC Glucose 171 H 186 H 161 H Calcium Magnesium Lactate Dehydrogenase CK-MB (CK-2) CK-MB (CK-2) Rel Index Albumin Ur Specific [place] Urine WBC (Auto) Digoxin Salicylates Acetaminophen 06/18/19 06/18/19 06/18/19 04:25 05:23 05:23 WBC 13.2 H Hgb MCH 25 L RDW 18.3 H Plt Count 81 L [place] % (Auto) Lymph # Seg Neutrophils % Seg Neuts % (Manual) 96.0 H Lymphocytes % (Manual) 4.0 L Seg Neutrophils # Man 12.7 H Lymphocytes # (Manual) 0.5 L Monocytes # (Manual) D-Dimer ABG pH ABG pO2 72.9 L ABG HCO3 33.8 H ABG O2 Saturation 94.6 L ABG Base Excess 7.3 H ABG Hemoglobin 11.1 L Oxyhemoglobin 92.8 L Sodium Potassium Chloride Carbon Dioxide 34 H BUN 36 H Creatinine 0.3 L Glucose 162 H POC Glucose Calcium Magnesium Lactate Dehydrogenase CK-MB (CK-2) CK-MB (CK-2) Rel Index Albumin Ur Specific [place] Urine WBC (Auto) Digoxin Salicylates Acetaminophen 06/18/19 06/18/19 06/18/19 05:37 12:26 18:17 WBC Hgb MCH RDW Plt Count [place] % (Auto) Lymph # Seg Neutrophils % Seg Neuts % (Manual) Lymphocytes % (Manual) Seg Neutrophils # Man Lymphocytes # (Manual) Monocytes # (Manual) D-Dimer ABG pH ABG pO2 ABG HCO3 ABG O2 Saturation ABG Base Excess ABG Hemoglobin Oxyhemoglobin Sodium Potassium Chloride Carbon Dioxide BUN Creatinine Glucose POC Glucose 177 H 156 H 134 H Calcium Magnesium Lactate Dehydrogenase CK-MB (CK-2) CK-MB (CK-2) Rel Index Albumin Ur Specific [place] Urine WBC (Auto) Digoxin Salicylates Acetaminophen 06/18/19 06/19/19 06/19/19 23:51 05:58 12:12 WBC Hgb MCH RDW Plt Count [place] % (Auto) Lymph # Seg Neutrophils % Seg Neuts % (Manual) Lymphocytes % (Manual) Seg Neutrophils # Man Lymphocytes # (Manual) Monocytes # (Manual) D-Dimer ABG pH ABG pO2 ABG HCO3 ABG O2 Saturation ABG Base Excess ABG Hemoglobin Oxyhemoglobin Sodium Potassium Chloride Carbon Dioxide BUN Creatinine Glucose POC Glucose 153 H 143 H 186 H Calcium Magnesium Lactate Dehydrogenase CK-MB (CK-2) CK-MB (CK-2) Rel Index Albumin Ur Specific [place] Urine WBC (Auto) Digoxin Salicylates Acetaminophen 06/19/19 06/19/19 06/19/19 12:40 14:14 14:14 WBC Hgb MCH RDW Plt Count [place] % (Auto) Lymph # Seg Neutrophils % Seg Neuts % (Manual) Lymphocytes % (Manual) Seg Neutrophils # Man Lymphocytes # (Manual) Monocytes # (Manual) D-Dimer 1177.30 H ABG pH ABG pO2 ABG HCO3 ABG O2 Saturation ABG Base Excess ABG Hemoglobin Oxyhemoglobin Sodium Potassium Chloride Carbon Dioxide BUN Creatinine Glucose POC Glucose Calcium Magnesium Lactate Dehydrogenase 290 H CK-MB (CK-2) CK-MB (CK-2) Rel Index Albumin Ur Specific [place] 1.032 H Urine WBC (Auto) Digoxin Salicylates Acetaminophen 06/19/19 06/19/19 06/19/19 16:40 17:00 23:50 WBC Hgb MCH RDW Plt Count [place] % (Auto) Lymph # Seg Neutrophils % Seg Neuts % (Manual) Lymphocytes % (Manual) Seg Neutrophils # Man Lymphocytes # (Manual) Monocytes # (Manual) D-Dimer ABG pH ABG pO2 54.2 L ABG HCO3 32.1 H ABG O2 Saturation 87.8 L ABG Base Excess 6.3 H ABG Hemoglobin 11.2 L Oxyhemoglobin 85.9 L Sodium Potassium Chloride Carbon Dioxide BUN Creatinine Glucose POC Glucose 137 H 148 H Calcium Magnesium Lactate Dehydrogenase CK-MB (CK-2) CK-MB (CK-2) Rel Index Albumin Ur Specific [place] Urine WBC (Auto) Digoxin Salicylates Acetaminophen 06/20/19 06/20/19 06/20/19 05:14 05:30 05:40 WBC 16.4 H Hgb MCH 25 L RDW 18.3 H Plt Count 79 L [place] % (Auto) Lymph # Seg Neutrophils % Seg Neuts % (Manual) Lymphocytes % (Manual) Seg Neutrophils # Man Lymphocytes # (Manual) Monocytes # (Manual) D-Dimer ABG pH ABG pO2 63.4 L ABG HCO3 32.9 H ABG O2 Saturation 91.8 L ABG Base Excess 6.2 H ABG Hemoglobin 10.4 L Oxyhemoglobin 89.7 L Sodium Potassium Chloride Carbon Dioxide BUN Creatinine Glucose POC Glucose 164 H Calcium Magnesium Lactate Dehydrogenase CK-MB (CK-2) CK-MB (CK-2) Rel Index Albumin Ur Specific [place] Urine WBC (Auto) Digoxin Salicylates Acetaminophen 06/20/19 06/20/19 06/20/19 05:40 12:35 18:32 WBC Hgb MCH RDW Plt Count [place] % (Auto) Lymph # Seg Neutrophils % Seg Neuts % (Manual) Lymphocytes % (Manual) Seg Neutrophils # Man Lymphocytes # (Manual) Monocytes # (Manual) D-Dimer ABG pH ABG pO2 ABG HCO3 ABG O2 Saturation ABG Base Excess ABG Hemoglobin Oxyhemoglobin Sodium Potassium Chloride Carbon Dioxide 31 H BUN 25 H Creatinine 0.3 L Glucose 150 H POC Glucose 162 H 159 H Calcium Magnesium Lactate Dehydrogenase CK-MB (CK-2) CK-MB (CK-2) Rel Index Albumin Ur Specific [place] Urine WBC (Auto) Digoxin Salicylates Acetaminophen 06/21/19 06/21/19 06/21/19 00:12 04:58 04:58 WBC 13.9 H Hgb 9.7 L MCH 25 L RDW 17.9 H Plt Count 85 L [place] % (Auto) Lymph # Seg Neutrophils % Seg Neuts % (Manual) Lymphocytes % (Manual) Seg Neutrophils # Man Lymphocytes # (Manual) Monocytes # (Manual) D-Dimer ABG pH ABG pO2 ABG HCO3 ABG O2 Saturation ABG Base Excess ABG Hemoglobin Oxyhemoglobin Sodium Potassium Chloride Carbon Dioxide 31 H BUN 23 H Creatinine 0.3 L Glucose 142 H POC Glucose 144 H Calcium Magnesium Lactate Dehydrogenase CK-MB (CK-2) CK-MB (CK-2) Rel Index Albumin Ur Specific [place] Urine WBC (Auto) Digoxin Salicylates Acetaminophen 06/21/19 06/21/19 06/21/19 05:42 12:43 23:17 WBC Hgb MCH RDW Plt Count [place] % (Auto) Lymph # Seg Neutrophils % Seg Neuts % (Manual) Lymphocytes % (Manual) Seg Neutrophils # Man Lymphocytes # (Manual) Monocytes # (Manual) D-Dimer ABG pH ABG pO2 ABG HCO3 ABG O2 Saturation ABG Base Excess ABG Hemoglobin Oxyhemoglobin Sodium Potassium Chloride Carbon Dioxide BUN Creatinine Glucose POC Glucose 137 H 118 H 141 H Calcium Magnesium Lactate Dehydrogenase CK-MB (CK-2) CK-MB (CK-2) Rel Index Albumin Ur Specific [place] Urine WBC (Auto) Digoxin Salicylates Acetaminophen 06/22/19 06/22/19 06/22/19 05:28 12:11 18:27 WBC Hgb MCH RDW Plt Count [place] % (Auto) Lymph # Seg Neutrophils % Seg Neuts % (Manual) Lymphocytes % (Manual) Seg Neutrophils # Man Lymphocytes # (Manual) Monocytes # (Manual) D-Dimer ABG pH ABG pO2 ABG HCO3 ABG O2 Saturation ABG Base Excess ABG Hemoglobin Oxyhemoglobin Sodium Potassium Chloride Carbon Dioxide BUN Creatinine Glucose POC Glucose 144 H 138 H 169 H Calcium Magnesium Lactate Dehydrogenase CK-MB (CK-2) CK-MB (CK-2) Rel Index Albumin Ur Specific [place] Urine WBC (Auto) Digoxin Salicylates Acetaminophen 06/23/19 06/23/19 06/23/19 00:12 05:05 05:05 WBC 11.5 H Hgb MCH 25 L RDW 17.5 H Plt Count 98 L [place] % (Auto) Lymph # Seg Neutrophils % Seg Neuts % (Manual) 88.0 H Lymphocytes % (Manual) 4.0 L Seg Neutrophils # Man 10.1 H Lymphocytes # (Manual) 0.5 L Monocytes # (Manual) D-Dimer ABG pH ABG pO2 ABG HCO3 ABG O2 Saturation ABG Base Excess ABG Hemoglobin Oxyhemoglobin Sodium 133 L Potassium 5.3 H Chloride 95.5 L Carbon Dioxide BUN 24 H Creatinine 0.3 L Glucose 168 H POC Glucose 154 H Calcium Magnesium 2.60 H Lactate Dehydrogenase CK-MB (CK-2) CK-MB (CK-2) Rel Index Albumin Ur Specific [place] Urine WBC (Auto) Digoxin Salicylates Acetaminophen 06/23/19 06/23/19 06/23/19 05:15 08:50 12:00 WBC Hgb MCH RDW Plt Count [place] % (Auto) Lymph # Seg Neutrophils % Seg Neuts % (Manual) Lymphocytes % (Manual) Seg Neutrophils # Man Lymphocytes # (Manual) Monocytes # (Manual) D-Dimer ABG pH ABG pO2 56.9 L ABG HCO3 33.2 H ABG O2 Saturation 88.0 L ABG Base Excess 7.0 H ABG Hemoglobin 9.9 L Oxyhemoglobin 86.4 L Sodium Potassium Chloride Carbon Dioxide BUN Creatinine Glucose POC Glucose 174 H 168 H Calcium Magnesium Lactate Dehydrogenase CK-MB (CK-2) CK-MB (CK-2) Rel Index Albumin Ur Specific [place] Urine WBC (Auto) Digoxin Salicylates Acetaminophen 06/23/19 06/23/19 06/24/19 17:54 23:55 04:41 WBC Hgb MCH RDW Plt Count [place] % (Auto) Lymph # Seg Neutrophils % Seg Neuts % (Manual) Lymphocytes % (Manual) Seg Neutrophils # Man Lymphocytes # (Manual) Monocytes # (Manual) D-Dimer ABG pH ABG pO2 ABG HCO3 ABG O2 Saturation ABG Base Excess ABG Hemoglobin Oxyhemoglobin Sodium Potassium Chloride Carbon Dioxide BUN Creatinine Glucose POC Glucose 146 H 145 H Calcium Magnesium Lactate Dehydrogenase CK-MB (CK-2) CK-MB (CK-2) Rel Index Albumin Ur Specific [place] Urine WBC (Auto) Digoxin 0.5 L Salicylates Acetaminophen 06/24/19 06/24/19 06/24/19 05:53 12:01 16:55 WBC Hgb MCH RDW Plt Count [place] % (Auto) Lymph # Seg Neutrophils % Seg Neuts % (Manual) Lymphocytes % (Manual) Seg Neutrophils # Man Lymphocytes # (Manual) Monocytes # (Manual) D-Dimer ABG pH ABG pO2 ABG HCO3 ABG O2 Saturation ABG Base Excess ABG Hemoglobin Oxyhemoglobin Sodium Potassium Chloride Carbon Dioxide BUN Creatinine Glucose POC Glucose 184 H 178 H 152 H Calcium Magnesium Lactate Dehydrogenase CK-MB (CK-2) CK-MB (CK-2) Rel Index Albumin Ur Specific [place] Urine WBC (Auto) Digoxin Salicylates Acetaminophen 06/25/19 06/25/19 06/25/19 00:10 04:37 04:38 WBC 17.9 H Hgb MCH 25 L RDW 18.3 H Plt Count 124 L [place] % (Auto) Lymph # Seg Neutrophils % Seg Neuts % (Manual) 94.0 H Lymphocytes % (Manual) 1.0 L Seg Neutrophils # Man 16.8 H Lymphocytes # (Manual) 0.2 L Monocytes # (Manual) 0.9 H D-Dimer ABG pH ABG pO2 62.7 L ABG HCO3 33.0 H ABG O2 Saturation 91.8 L ABG Base Excess 7.8 H ABG Hemoglobin 10.0 L Oxyhemoglobin 90.2 L Sodium Potassium Chloride Carbon Dioxide BUN Creatinine Glucose POC Glucose 145 H Calcium Magnesium Lactate Dehydrogenase CK-MB (CK-2) CK-MB (CK-2) Rel Index Albumin Ur Specific [place] Urine WBC (Auto) Digoxin Salicylates Acetaminophen 06/25/19 06/25/19 06/25/19 04:38 05:40 12:45 WBC Hgb MCH RDW Plt Count [place] % (Auto) Lymph # Seg Neutrophils % Seg Neuts % (Manual) Lymphocytes % (Manual) Seg Neutrophils # Man Lymphocytes # (Manual) Monocytes # (Manual) D-Dimer ABG pH ABG pO2 ABG HCO3 ABG O2 Saturation ABG Base Excess ABG Hemoglobin Oxyhemoglobin Sodium Potassium Chloride 95.4 L Carbon Dioxide 31 H BUN 22 H Creatinine 0.3 L Glucose 126 H POC Glucose 128 H 169 H Calcium Magnesium Lactate Dehydrogenase CK-MB (CK-2) CK-MB (CK-2) Rel Index Albumin Ur Specific [place] Urine WBC (Auto) Digoxin Salicylates Acetaminophen 06/25/19 06/26/19 06/26/19 16:57 00:30 05:22 WBC Hgb MCH RDW Plt Count [place] % (Auto) Lymph # Seg Neutrophils % Seg Neuts % (Manual) Lymphocytes % (Manual) Seg Neutrophils # Man Lymphocytes # (Manual) Monocytes # (Manual) D-Dimer ABG pH ABG pO2 ABG HCO3 ABG O2 Saturation ABG Base Excess ABG Hemoglobin Oxyhemoglobin Sodium Potassium Chloride Carbon Dioxide BUN Creatinine Glucose POC Glucose 130 H 167 H 155 H Calcium Magnesium Lactate Dehydrogenase CK-MB (CK-2) CK-MB (CK-2) Rel Index Albumin Ur Specific [place] Urine WBC (Auto) Digoxin Salicylates Acetaminophen 06/26/19 06/26/19 06/27/19 12:02 23:57 05:54 WBC Hgb MCH RDW Plt Count [place] % (Auto) Lymph # Seg Neutrophils % Seg Neuts % (Manual) Lymphocytes % (Manual) Seg Neutrophils # Man Lymphocytes # (Manual) Monocytes # (Manual) D-Dimer ABG pH ABG pO2 ABG HCO3 ABG O2 Saturation ABG Base Excess ABG Hemoglobin Oxyhemoglobin Sodium Potassium Chloride Carbon Dioxide BUN Creatinine Glucose POC Glucose 130 H 155 H 152 H Calcium Magnesium Lactate Dehydrogenase CK-MB (CK-2) CK-MB (CK-2) Rel Index Albumin Ur Specific [place] Urine WBC (Auto) Digoxin Salicylates Acetaminophen 06/27/19 06/27/19 06/27/19 12:09 13:41 13:41 WBC 15.0 H Hgb 10.0 L MCH 25 L RDW 17.9 H Plt Count 114 L [place] % (Auto) Lymph # Seg Neutrophils % Seg Neuts % (Manual) 98.0 H Lymphocytes % (Manual) 0 L Seg Neutrophils # Man 14.7 H Lymphocytes # (Manual) 0.0 L Monocytes # (Manual) D-Dimer ABG pH ABG pO2 ABG HCO3 ABG O2 Saturation ABG Base Excess ABG Hemoglobin Oxyhemoglobin Sodium 135 L Potassium Chloride 96.5 L Carbon Dioxide BUN 21 H Creatinine 0.2 L Glucose 161 H POC Glucose 150 H Calcium Magnesium Lactate Dehydrogenase CK-MB (CK-2) CK-MB (CK-2) Rel Index Albumin Ur Specific [place] Urine WBC (Auto) Digoxin Salicylates Acetaminophen 06/27/19 06/28/19 06/28/19 18:03 00:22 00:58 WBC 16.2 H Hgb MCH 25 L RDW 18.2 H Plt Count 130 L [place] % (Auto) Lymph # Seg Neutrophils % Seg Neuts % (Manual) 98.0 H Lymphocytes % (Manual) 0 L Seg Neutrophils # Man 15.9 H Lymphocytes # (Manual) 0.0 L Monocytes # (Manual) D-Dimer ABG pH ABG pO2 ABG HCO3 ABG O2 Saturation ABG Base Excess ABG Hemoglobin Oxyhemoglobin Sodium Potassium Chloride Carbon Dioxide BUN Creatinine Glucose POC Glucose 156 H 150 H Calcium Magnesium Lactate Dehydrogenase CK-MB (CK-2) CK-MB (CK-2) Rel Index Albumin Ur Specific [place] Urine WBC (Auto) Digoxin Salicylates Acetaminophen 06/28/19 06/28/19 06/28/19 00:58 05:19 12:14 WBC Hgb MCH RDW Plt Count [place] % (Auto) Lymph # Seg Neutrophils % Seg Neuts % (Manual) Lymphocytes % (Manual) Seg Neutrophils # Man Lymphocytes # (Manual) Monocytes # (Manual) D-Dimer ABG pH ABG pO2 ABG HCO3 ABG O2 Saturation ABG Base Excess ABG Hemoglobin Oxyhemoglobin Sodium Potassium Chloride 96.5 L Carbon Dioxide 32 H BUN 21 H Creatinine 0.2 L Glucose 140 H POC Glucose 122 H 137 H Calcium Magnesium Lactate Dehydrogenase CK-MB (CK-2) CK-MB (CK-2) Rel Index Albumin Ur Specific [place] Urine WBC (Auto) Digoxin Salicylates Acetaminophen 06/28/19 06/28/19 06/29/19 12:20 17:06 00:20 WBC Hgb MCH RDW Plt Count [place] % (Auto) Lymph # Seg Neutrophils % Seg Neuts % (Manual) Lymphocytes % (Manual) Seg Neutrophils # Man Lymphocytes # (Manual) Monocytes # (Manual) D-Dimer ABG pH 7.464 H ABG pO2 64.2 L ABG HCO3 33.4 H ABG O2 Saturation 93.7 L ABG Base Excess 8.6 H ABG Hemoglobin 11.2 L Oxyhemoglobin 92.0 L Sodium Potassium Chloride Carbon Dioxide BUN Creatinine Glucose POC Glucose 154 H 156 H Calcium Magnesium Lactate Dehydrogenase CK-MB (CK-2) CK-MB (CK-2) Rel Index Albumin Ur Specific [place] Urine WBC (Auto) Digoxin Salicylates Acetaminophen 06/29/19 06/29/19 06/29/19 05:10 05:31 05:31 WBC 14.3 H Hgb MCH 25 L RDW 18.6 H Plt Count 122 L [place] % (Auto) Lymph # Seg Neutrophils % Seg Neuts % (Manual) 96.0 H Lymphocytes % (Manual) 1.0 L Seg Neutrophils # Man 13.7 H Lymphocytes # (Manual) 0.1 L Monocytes # (Manual) D-Dimer ABG pH ABG pO2 ABG HCO3 ABG O2 Saturation ABG Base Excess ABG Hemoglobin Oxyhemoglobin Sodium Potassium Chloride 95.6 L Carbon Dioxide BUN 26 H Creatinine 0.2 L Glucose 135 H POC Glucose 139 H Calcium Magnesium Lactate Dehydrogenase CK-MB (CK-2) CK-MB (CK-2) Rel Index Albumin Ur Specific [place] Urine WBC (Auto) Digoxin Salicylates Acetaminophen 06/29/19 06/29/19 06/30/19 12:26 18:10 00:41 WBC Hgb MCH RDW Plt Count [place] % (Auto) Lymph # Seg Neutrophils % Seg Neuts % (Manual) Lymphocytes % (Manual) Seg Neutrophils # Man Lymphocytes # (Manual) Monocytes # (Manual) D-Dimer ABG pH ABG pO2 ABG HCO3 ABG O2 Saturation ABG Base Excess ABG Hemoglobin Oxyhemoglobin Sodium Potassium Chloride Carbon Dioxide BUN Creatinine Glucose POC Glucose 144 H 153 H 127 H Calcium Magnesium Lactate Dehydrogenase CK-MB (CK-2) CK-MB (CK-2) Rel Index Albumin Ur Specific [place] Urine WBC (Auto) Digoxin Salicylates Acetaminophen 06/30/19 06/30/19 05:11 11:52 WBC Hgb MCH RDW Plt Count [place] % (Auto) Lymph # Seg Neutrophils % Seg Neuts % (Manual) Lymphocytes % (Manual) Seg Neutrophils # Man Lymphocytes # (Manual) Monocytes # (Manual) D-Dimer ABG pH ABG pO2 ABG HCO3 ABG O2 Saturation ABG Base Excess ABG Hemoglobin Oxyhemoglobin Sodium Potassium Chloride Carbon Dioxide BUN Creatinine Glucose POC Glucose 151 H 136 H Calcium Magnesium Lactate Dehydrogenase CK-MB (CK-2) CK-MB (CK-2) Rel Index Albumin Ur Specific [place] Urine WBC (Auto) Digoxin Salicylates Acetaminophen Allied health notes reviewed: nursing
[2019-06-30] MEDS: LORazepam 2 MG/ML VIAL IV PRN (23:04)
[2019-07-01] MEDS: INSULIN LISPRO 100 UNIT/ML SUB-Q SCH ×4 (00:03→18:07)
[2019-07-01] MEDS: methylPREDNISolone Sod Succinate 40 MG/1 ML INJ IV SCH ×6 (00:10→23:58)
[2019-07-01 05:25] LABS: Hematocrit 32.7 % (30.3-42.9); Hemoglobin 10.1 gm/dl (10.1-14.3); Mean Corpuscular HGB Conc 31 % (30-34); Mean Corpuscular Volume 81 fl (79-97); Red Blood Count 4.04 M/mm3 (3.65-5.03); Red Cell Distribution Width 18.4 % (13.2-15.2)
[2019-07-01 05:32] LABS: Platelet Count 89 K/mm3 (140-440)
[2019-07-01 05:44] LABS: BUN/Creatinine Ratio 120; Blood Urea Nitrogen 24 mg/dL (7-17); Calcium 8.5 mg/dL (8.4-10.2); Hemolysis Index 32
[2019-07-01 06:18] LABS: Basophils % (Manual) 0 % (0.0-1.8); Eosinophils % (Manual) 0 % (0.0-4.3); Total Cells Counted 100
[2019-07-01 06:19] LABS: Anisocytosis Few; Hypochromasia Few; Ovalocytes Rare; Schistocytes Few
[2019-07-01 06:20] LABS: Platelet Estimate Consistent w Auto; Target Cells Rare
[2019-07-01] MEDS: dilTIAZem 30 MG TAB PO SCH ×3 (06:26→21:28)
[2019-07-01] MEDS: ARFORMOTEROL 15 MCG/2 ML NEBU IH SCH ×2 (08:23→20:25)
[2019-07-01] MEDS: BUDESONIDE 0.5 MG/2 ML NEBU IH SCH ×2 (08:23→20:25)
[2019-07-01] MEDS: IPRATROPIUM/ALBUTEROL SULFATE 3 ML AMPUL.NEB IH SCH ×3 (08:24→20:25)
[2019-07-01] MEDS: AMIODARONE 200 MG TAB PO SCH (09:03)
[2019-07-01] MEDS: LANSOPRAZOLE 30 MG SOLUTAB FEEDTUBE SCH (09:03)
[2019-07-01] MEDS: LORazepam 2 MG/ML VIAL IV PRN (09:04)
[2019-07-01] MEDS: DOCUSATE SODIUM 100 MG/10 ML ORAL LIQD PO SCH ×2 (09:04→21:29)
[2019-07-01] MEDS: QUEtiapine 100 MG TAB PO SCH ×2 (09:04→21:27)
[2019-07-01] MEDS: VENLAFAXINE 75 MG TAB PO SCH ×3 (09:04→21:28)
--- NOTE | 2019-07-01 09:40 | Progress Note ---
Assessment and Plan Acute and chronic hypoxic and hypercapnic respiratory failure on MVS Acute exacerbation of COPD Pseudomonas pneumonia Thrombocytopenia History of coronary artery disease/CHF History of depression; Obesity; BMI 32.2 Chronic narcotic dependence Tobacco use disorder/Nicotine dependence Daily SBT as tolerated and per protocol CXR, ABG prn CBC , BMPprn Discontinue Harley catheter, no clinical indication for indwelling Harley Decrease free water flushes to 200 q4h, hypernatremia has resolved Continue all current care Critical care bundles addressed -Continue with MVS, Lung protective strategies, monitor airway pressures -Adjust minute ventilation as indicated for better gas exchange -VAP bundle addressed -Aspiration precautions, HOB>40 -Daily assessment for readiness for weaning; SAT and SBT -Antibiotics for parmar sensitive Pseudomonas PNA -Steroids with slow taper -Bronchodilators with pulmonary hygiene -Stress ulcer prophylaxis, VTE prophylaxis -Continue enteric nutritional support -Continue to monitor glycemic control, with target blood glucose 140-180 mg/dL while critically ill. -Avoid hypoglycemia - Wean supplemental oxygen for target O2 sat's > 90% - Avoid benzodiazepines to reduce the possibility of delirium - prn analgesia per CPOT score - Mobility protocol , off loading and skin assessment per protocol for pressure ulcer prevention - Monitor hemodynamics closely -Nicotine withdrawal precautions -Smoking cessation counselling once she is extubated and able to participate in the discussion -Chronic home medications as indicated - continue other care per attending / other consultants CONDITION: CRITICAL PROGNOSIS: GUARDED CODE STATUS: FULL CODE Life threatening condition from acute and chronic hypoxic-hypercapnic respiratory failure with ventilator dependency Mortality/Morbidity- High Complexity of decision making- High The high probability of a clinically significant, sudden or life-threatening deterioration of the [respiratory, ] system(s) required my full and direct attention, intervention and personal management. The aggregate critical care time was [31] minutes without overlap. Time includes spent on; [x] Data Review and interpretation [x] Patient assessment and monitoring of vital signs [x] Documentation [x] Medication orders and management Subjective Date of service: 07/01/19 Principal diagnosis: Ac and ch hypoxic & hypercapnic resp failure; AE-COPD; Tobacco use disorder Interval history: Patient is seen today for: Ac and ch hypoxic hypercapnic resp failure; AE-COPD; Tobacco use disorder/Nicotine dependence; Hypernatremia; HTN (hypotensive at presentation ); Chronic narcotic dependence ; Chronic back pain; Anxiety disorder Seen and examined at bedside; 24-hour events reviewed; nursing and respiratory care staff consulted; no adverse overnight events reported to me; laying in bed;Remains on MVS. No vomiting, no fevers Intermittent episodes of agitation overnight required a dose of IV Lorazepam Tolerating some PSV 10/6, calm , tolerating it well and obeying some simple commands Pansensitive Pseudomonas in tracheal aspirate cultures, good glycemic control Vitals, labs, medications, chart reviewed Objective Vital Signs - 12hr 06/30/19 06/30/19 06/30/19 22:00 22:25 22:30 Temperature Pulse Rate 116 H 111 H 118 H Pulse Rate [ Bilateral] Pulse Rate [ From Monitor] Respiratory 19 14 16 Rate Respiratory Rate [Bilateral ] Blood Pressure 118/65 115/64 115/64 O2 Sat by Pulse 94 93 92 Oximetry 06/30/19 06/30/19 06/30/19 22:36 23:00 23:30 Temperature Pulse Rate 116 H 119 H 113 H Pulse Rate [ Bilateral] Pulse Rate [ From Monitor] Respiratory 15 20 17 Rate Respiratory Rate [Bilateral ] Blood Pressure 115/64 115/64 113/70 O2 Sat by Pulse 93 93 92 Oximetry 07/01/19 07/01/19 07/01/19 00:00 00:27 00:30 Temperature 97.6 F Pulse Rate 99 H 91 H Pulse Rate [ Bilateral] Pulse Rate [ 93 H From Monitor] Respiratory 18 18 15 Rate Respiratory Rate [Bilateral ] Blood Pressure 113/70 106/49 O2 Sat by Pulse 93 97 94 Oximetry 07/01/19 07/01/19 07/01/19 00:50 01:00 01:30 Temperature Pulse Rate 83 97 H 119 H Pulse Rate [ Bilateral] Pulse Rate [ From Monitor] Respiratory 16 26 H Rate Respiratory Rate [Bilateral ] Blood Pressure 102/63 102/63 102/63 O2 Sat by Pulse 98 94 96 Oximetry 07/01/19 07/01/19 07/01/19 02:00 02:30 03:00 Temperature Pulse Rate 85 77 72 Pulse Rate [ Bilateral] Pulse Rate [ From Monitor] Respiratory 15 16 16 Rate Respiratory Rate [Bilateral ] Blood Pressure 108/58 108/58 99/50 O2 Sat by Pulse 97 97 97 Oximetry 07/01/19 07/01/19 07/01/19 03:30 04:00 04:30 Temperature 97.6 F Pulse Rate 66 67 61 Pulse Rate [ Bilateral] Pulse Rate [ 68 From Monitor] Respiratory 16 16 15 Rate Respiratory Rate [Bilateral ] Blood Pressure 99/50 99/50 103/51 O2 Sat by Pulse 97 97 98 Oximetry 07/01/19 07/01/19 07/01/19 04:47 05:00 05:30 Temperature Pulse Rate 63 74 67 Pulse Rate [ Bilateral] Pulse Rate [ From Monitor] Respiratory 15 16 Rate Respiratory Rate [Bilateral ] Blood Pressure 103/51 103/51 111/46 O2 Sat by Pulse 98 98 97 Oximetry 07/01/19 07/01/19 07/01/19 06:00 06:26 06:30 Temperature Pulse Rate 104 H 89 88 Pulse Rate [ Bilateral] Pulse Rate [ From Monitor] Respiratory 13 14 Rate Respiratory Rate [Bilateral ] Blood Pressure 112/75 112/75 112/75 O2 Sat by Pulse 98 98 Oximetry 07/01/19 07/01/19 07/01/19 07:00 07:30 08:00 Temperature Pulse Rate 103 H 83 69 Pulse Rate [ 87 Bilateral] Pulse Rate [ 69 From Monitor] Respiratory 17 13 22 Rate Respiratory 20 Rate [Bilateral ] Blood Pressure 112/75 112/75 139/71 O2 Sat by Pulse 98 98 98 Oximetry 07/01/19 07/01/19 08:30 09:00 Temperature Pulse Rate 74 81 Pulse Rate [ Bilateral] Pulse Rate [ From Monitor] Respiratory 21 19 Rate Respiratory Rate [Bilateral ] Blood Pressure 139/71 139/71 O2 Sat by Pulse 94 93 Oximetry Constitutional: no acute distress, other (elderly looking obese CF, normocephalic on MVS without signidficant dyssynchrony) Eyes: non-icteric ENT: oropharynx moist, other (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) Neck: supple, no lymphadenopathy, no JVD Effort: mildly labored Ascultation: Bilateral: diminished breath sounds, rhonchi Percussion: Bilateral: not dull Cardiovascular: regular rate and rhythm Gastrointestinal: normoactive bowel sounds, soft, non-tender, non-distended Integumentary: normal Extremities: no cyanosis, no edema, pulses normal, no ischemia or petechiae Neurologic: non-focal exam (grossly), pupils equal and round, CN II-XII normal, other (obeys one step commands) Psychiatric: anxious CBC and BMP: 07/01/19 04:30 07/06/19 04:51 ABG, PT/INR, D-dimer: ABG ABG pH 7.464 pH Units (7.350-7.450) H 06/28/19 12:20 ABG pCO2 47.6 mm Hg 06/28/19 12:20 ABG pO2 64.2 mm Hg (80.0-90.0) L 06/28/19 12:20 ABG O2 Saturation 93.7 % (95.0-99.0) L 06/28/19 12:20 PT/INR, D-dimer PT 13.0 Sec. (12.2-14.9) 06/11/19 18:03 INR 0.97 (0.87-1.13) 06/11/19 18:03 D-Dimer 1177.30 ng/mlDDU (0-234) H 06/19/19 14:14 Abnormal lab findings: Abnormal Labs 06/11/19 06/11/19 06/11/19 18:03 18:03 18:03 WBC Hgb MCH 25 L RDW 19.4 H Plt Count 124 L [place] % (Auto) 10.3 H Lymph # 1.1 L Seg Neutrophils % 74.4 H Seg Neuts % (Manual) Lymphocytes % (Manual) Seg Neutrophils # Man Lymphocytes # (Manual) Monocytes # (Manual) D-Dimer ABG pH ABG pO2 ABG HCO3 ABG O2 Saturation ABG Base Excess ABG Hemoglobin Oxyhemoglobin Sodium 146 H Potassium Chloride Carbon Dioxide BUN 21 H Creatinine 0.4 L Glucose POC Glucose Calcium Magnesium 2.70 H Lactate Dehydrogenase CK-MB (CK-2) CK-MB (CK-2) Rel Index Albumin 3.5 L Ur Specific [place] Urine WBC (Auto) Digoxin Salicylates 1.0 L Acetaminophen 06/11/19 06/11/19 06/11/19 18:03 18:59 23:22 WBC Hgb MCH RDW Plt Count [place] % (Auto) Lymph # Seg Neutrophils % Seg Neuts % (Manual) Lymphocytes % (Manual) Seg Neutrophils # Man Lymphocytes # (Manual) Monocytes # (Manual) D-Dimer ABG pH 7.340 L ABG pO2 76.0 L ABG HCO3 34.6 H ABG O2 Saturation ABG Base Excess 7.1 H ABG Hemoglobin 10.9 L Oxyhemoglobin 91.6 L Sodium Potassium Chloride Carbon Dioxide BUN Creatinine Glucose POC Glucose Calcium Magnesium Lactate Dehydrogenase CK-MB (CK-2) 5.5 H CK-MB (CK-2) Rel Index 5.5 H Albumin Ur Specific [place] Urine WBC (Auto) Digoxin Salicylates Acetaminophen < 5.0 L 06/12/19 06/12/19 06/12/19 00:29 02:04 04:20 WBC Hgb MCH RDW Plt Count [place] % (Auto) Lymph # Seg Neutrophils % Seg Neuts % (Manual) Lymphocytes % (Manual) Seg Neutrophils # Man Lymphocytes # (Manual) Monocytes # (Manual) D-Dimer ABG pH 7.313 L ABG pO2 75.3 L ABG HCO3 29.9 H ABG O2 Saturation 94.3 L ABG Base Excess ABG Hemoglobin 10.8 L Oxyhemoglobin 92.0 L Sodium Potassium Chloride Carbon Dioxide BUN Creatinine Glucose POC Glucose 107 H Calcium Magnesium Lactate Dehydrogenase CK-MB (CK-2) CK-MB (CK-2) Rel Index Albumin Ur Specific [place] Urine WBC (Auto) 30.0 H Digoxin Salicylates Acetaminophen 06/12/19 06/12/19 06/12/19 05:09 05:09 05:09 WBC Hgb MCH 25 L RDW 19.4 H Plt Count 114 L [place] % (Auto) Lymph # Seg Neutrophils % Seg Neuts % (Manual) 91.0 H Lymphocytes % (Manual) 7.0 L Seg Neutrophils # Man Lymphocytes # (Manual) 0.4 L Monocytes # (Manual) D-Dimer ABG pH ABG pO2 ABG HCO3 ABG O2 Saturation ABG Base Excess ABG Hemoglobin Oxyhemoglobin Sodium 147 H Potassium Chloride 107.4 H Carbon Dioxide BUN 19 H Creatinine 0.4 L Glucose 110 H POC Glucose Calcium 8.2 L Magnesium Lactate Dehydrogenase CK-MB (CK-2) CK-MB (CK-2) Rel Index 5.4 H Albumin Ur Specific [place] Urine WBC (Auto) Digoxin Salicylates Acetaminophen 06/12/19 06/12/19 06/13/19 06:42 23:21 04:14 WBC Hgb MCH RDW Plt Count [place] % (Auto) Lymph # Seg Neutrophils % Seg Neuts % (Manual) Lymphocytes % (Manual) Seg Neutrophils # Man Lymphocytes # (Manual) Monocytes # (Manual) D-Dimer ABG pH ABG pO2 62.6 L ABG HCO3 29.6 H ABG O2 Saturation 91.0 L ABG Base Excess ABG Hemoglobin 10.3 L Oxyhemoglobin 89.0 L Sodium Potassium Chloride Carbon Dioxide BUN Creatinine Glucose POC Glucose 108 H 106 H Calcium Magnesium Lactate Dehydrogenase CK-MB (CK-2) CK-MB (CK-2) Rel Index Albumin Ur Specific [place] Urine WBC (Auto) Digoxin Salicylates Acetaminophen 06/13/19 06/13/19 06/13/19 04:54 04:54 12:20 WBC Hgb MCH 25 L RDW 19.2 H Plt Count 119 L [place] % (Auto) Lymph # Seg Neutrophils % Seg Neuts % (Manual) 95.0 H Lymphocytes % (Manual) 2.0 L Seg Neutrophils # Man 9.1 H Lymphocytes # (Manual) 0.2 L Monocytes # (Manual) D-Dimer ABG pH ABG pO2 ABG HCO3 ABG O2 Saturation ABG Base Excess ABG Hemoglobin Oxyhemoglobin Sodium 149 H Potassium Chloride 111.4 H Carbon Dioxide BUN 26 H Creatinine 0.5 L Glucose 107 H POC Glucose 125 H Calcium Magnesium Lactate Dehydrogenase CK-MB (CK-2) CK-MB (CK-2) Rel Index Albumin Ur Specific [place] Urine WBC (Auto) Digoxin Salicylates Acetaminophen 06/13/19 06/14/19 06/14/19 17:25 03:44 04:55 WBC Hgb MCH RDW Plt Count [place] % (Auto) Lymph # Seg Neutrophils % Seg Neuts % (Manual) Lymphocytes % (Manual) Seg Neutrophils # Man Lymphocytes # (Manual) Monocytes # (Manual) D-Dimer ABG pH ABG pO2 58.9 L ABG HCO3 29.5 H ABG O2 Saturation 88.7 L ABG Base Excess ABG Hemoglobin 10.2 L Oxyhemoglobin 86.7 L Sodium 150 H Potassium Chloride 110.4 H Carbon Dioxide BUN 20 H Creatinine 0.4 L Glucose 105 H POC Glucose 128 H Calcium Magnesium Lactate Dehydrogenase CK-MB (CK-2) CK-MB (CK-2) Rel Index Albumin Ur Specific [place] Urine WBC (Auto) Digoxin Salicylates Acetaminophen 06/14/19 06/14/19 06/14/19 05:37 11:58 21:00 WBC Hgb MCH RDW Plt Count [place] % (Auto) Lymph # Seg Neutrophils % Seg Neuts % (Manual) Lymphocytes % (Manual) Seg Neutrophils # Man Lymphocytes # (Manual) Monocytes # (Manual) D-Dimer ABG pH 7.321 L ABG pO2 60.0 L ABG HCO3 31.4 H ABG O2 Saturation 87.3 L ABG Base Excess 4.1 H ABG Hemoglobin 10.6 L Oxyhemoglobin 84.8 L Sodium Potassium Chloride Carbon Dioxide BUN Creatinine Glucose POC Glucose 111 H 116 H Calcium Magnesium Lactate Dehydrogenase CK-MB (CK-2) CK-MB (CK-2) Rel Index Albumin Ur Specific [place] Urine WBC (Auto) Digoxin Salicylates Acetaminophen 06/15/19 06/15/19 06/15/19 00:22 03:25 05:08 WBC Hgb MCH RDW Plt Count [place] % (Auto) Lymph # Seg Neutrophils % Seg Neuts % (Manual) Lymphocytes % (Manual) Seg Neutrophils # Man Lymphocytes # (Manual) Monocytes # (Manual) D-Dimer ABG pH 7.317 L ABG pO2 ABG HCO3 31.5 H ABG O2 Saturation ABG Base Excess 4.1 H ABG Hemoglobin 10.4 L Oxyhemoglobin 94.1 L Sodium Potassium Chloride Carbon Dioxide 31 H BUN 23 H Creatinine 0.3 L Glucose 120 H POC Glucose 108 H Calcium Magnesium Lactate Dehydrogenase CK-MB (CK-2) CK-MB (CK-2) Rel Index Albumin Ur Specific [place] Urine WBC (Auto) Digoxin Salicylates Acetaminophen 06/15/19 06/15/19 06/15/19 05:24 11:41 17:38 WBC Hgb MCH RDW Plt Count [place] % (Auto) Lymph # Seg Neutrophils % Seg Neuts % (Manual) Lymphocytes % (Manual) Seg Neutrophils # Man Lymphocytes # (Manual) Monocytes # (Manual) D-Dimer ABG pH ABG pO2 ABG HCO3 ABG O2 Saturation ABG Base Excess ABG Hemoglobin Oxyhemoglobin Sodium Potassium Chloride Carbon Dioxide BUN Creatinine Glucose POC Glucose 111 H 154 H 115 H Calcium Magnesium Lactate Dehydrogenase CK-MB (CK-2) CK-MB (CK-2) Rel Index Albumin Ur Specific [place] Urine WBC (Auto) Digoxin Salicylates Acetaminophen 06/15/19 06/16/19 06/16/19 23:31 03:40 05:18 WBC Hgb MCH RDW Plt Count [place] % (Auto) Lymph # Seg Neutrophils % Seg Neuts % (Manual) Lymphocytes % (Manual) Seg Neutrophils # Man Lymphocytes # (Manual) Monocytes # (Manual) D-Dimer ABG pH 7.313 L ABG pO2 96.4 H ABG HCO3 35.2 H ABG O2 Saturation ABG Base Excess 7.2 H ABG Hemoglobin 10.5 L Oxyhemoglobin 94.9 L Sodium Potassium Chloride Carbon Dioxide BUN Creatinine Glucose POC Glucose 161 H 158 H Calcium Magnesium Lactate Dehydrogenase CK-MB (CK-2) CK-MB (CK-2) Rel Index Albumin Ur Specific [place] Urine WBC (Auto) Digoxin Salicylates Acetaminophen 06/16/19 06/16/19 06/16/19 05:45 05:45 12:06 WBC 12.1 H Hgb MCH 25 L RDW 18.7 H Plt Count 93 L [place] % (Auto) Lymph # Seg Neutrophils % Seg Neuts % (Manual) 97.0 H Lymphocytes % (Manual) 0 L Seg Neutrophils # Man 11.7 H Lymphocytes # (Manual) 0.0 L Monocytes # (Manual) D-Dimer ABG pH ABG pO2 ABG HCO3 ABG O2 Saturation ABG Base Excess ABG Hemoglobin Oxyhemoglobin Sodium Potassium Chloride Carbon Dioxide 33 H BUN 25 H Creatinine 0.3 L Glucose 165 H POC Glucose 178 H Calcium Magnesium Lactate Dehydrogenase CK-MB (CK-2) CK-MB (CK-2) Rel Index Albumin Ur Specific [place] Urine WBC (Auto) Digoxin Salicylates Acetaminophen 06/16/19 06/16/19 06/17/19 17:55 23:42 03:35 WBC Hgb MCH RDW Plt Count [place] % (Auto) Lymph # Seg Neutrophils % Seg Neuts % (Manual) Lymphocytes % (Manual) Seg Neutrophils # Man Lymphocytes # (Manual) Monocytes # (Manual) D-Dimer ABG pH ABG pO2 73.2 L ABG HCO3 35.2 H ABG O2 Saturation 94.5 L ABG Base Excess 8.8 H ABG Hemoglobin 10.7 L Oxyhemoglobin 92.6 L Sodium Potassium Chloride Carbon Dioxide BUN Creatinine Glucose POC Glucose 180 H 160 H Calcium Magnesium Lactate Dehydrogenase CK-MB (CK-2) CK-MB (CK-2) Rel Index Albumin Ur Specific [place] Urine WBC (Auto) Digoxin Salicylates Acetaminophen 06/17/19 06/17/19 06/17/19 04:57 09:45 11:59 WBC 11.7 H Hgb MCH 25 L RDW 18.2 H Plt Count 79 L [place] % (Auto) Lymph # Seg Neutrophils % Seg Neuts % (Manual) 96.0 H Lymphocytes % (Manual) 3.0 L Seg Neutrophils # Man 11.2 H Lymphocytes # (Manual) 0.4 L Monocytes # (Manual) D-Dimer ABG pH ABG pO2 ABG HCO3 ABG O2 Saturation ABG Base Excess ABG Hemoglobin Oxyhemoglobin Sodium Potassium Chloride Carbon Dioxide 34 H BUN 31 H Creatinine 0.3 L Glucose 153 H POC Glucose 163 H Calcium Magnesium Lactate Dehydrogenase CK-MB (CK-2) CK-MB (CK-2) Rel Index Albumin Ur Specific [place] Urine WBC (Auto) Digoxin Salicylates Acetaminophen 06/17/19 06/17/19 06/17/19 12:34 17:33 23:39 WBC Hgb MCH RDW Plt Count [place] % (Auto) Lymph # Seg Neutrophils % Seg Neuts % (Manual) Lymphocytes % (Manual) Seg Neutrophils # Man Lymphocytes # (Manual) Monocytes # (Manual) D-Dimer ABG pH ABG pO2 ABG HCO3 ABG O2 Saturation ABG Base Excess ABG Hemoglobin Oxyhemoglobin Sodium Potassium Chloride Carbon Dioxide BUN Creatinine Glucose POC Glucose 171 H 186 H 161 H Calcium Magnesium Lactate Dehydrogenase CK-MB (CK-2) CK-MB (CK-2) Rel Index Albumin Ur Specific [place] Urine WBC (Auto) Digoxin Salicylates Acetaminophen 06/18/19 06/18/19 06/18/19 04:25 05:23 05:23 WBC 13.2 H Hgb MCH 25 L RDW 18.3 H Plt Count 81 L [place] % (Auto) Lymph # Seg Neutrophils % Seg Neuts % (Manual) 96.0 H Lymphocytes % (Manual) 4.0 L Seg Neutrophils # Man 12.7 H Lymphocytes # (Manual) 0.5 L Monocytes # (Manual) D-Dimer ABG pH ABG pO2 72.9 L ABG HCO3 33.8 H ABG O2 Saturation 94.6 L ABG Base Excess 7.3 H ABG Hemoglobin 11.1 L Oxyhemoglobin 92.8 L Sodium Potassium Chloride Carbon Dioxide 34 H BUN 36 H Creatinine 0.3 L Glucose 162 H POC Glucose Calcium Magnesium Lactate Dehydrogenase CK-MB (CK-2) CK-MB (CK-2) Rel Index Albumin Ur Specific [place] Urine WBC (Auto) Digoxin Salicylates Acetaminophen 06/18/19 06/18/19 06/18/19 05:37 12:26 18:17 WBC Hgb MCH RDW Plt Count [place] % (Auto) Lymph # Seg Neutrophils % Seg Neuts % (Manual) Lymphocytes % (Manual) Seg Neutrophils # Man Lymphocytes # (Manual) Monocytes # (Manual) D-Dimer ABG pH ABG pO2 ABG HCO3 ABG O2 Saturation ABG Base Excess ABG Hemoglobin Oxyhemoglobin Sodium Potassium Chloride Carbon Dioxide BUN Creatinine Glucose POC Glucose 177 H 156 H 134 H Calcium Magnesium Lactate Dehydrogenase CK-MB (CK-2) CK-MB (CK-2) Rel Index Albumin Ur Specific [place] Urine WBC (Auto) Digoxin Salicylates Acetaminophen 06/18/19 06/19/19 06/19/19 23:51 05:58 12:12 WBC Hgb MCH RDW Plt Count [place] % (Auto) Lymph # Seg Neutrophils % Seg Neuts % (Manual) Lymphocytes % (Manual) Seg Neutrophils # Man Lymphocytes # (Manual) Monocytes # (Manual) D-Dimer ABG pH ABG pO2 ABG HCO3 ABG O2 Saturation ABG Base Excess ABG Hemoglobin Oxyhemoglobin Sodium Potassium Chloride Carbon Dioxide BUN Creatinine Glucose POC Glucose 153 H 143 H 186 H Calcium Magnesium Lactate Dehydrogenase CK-MB (CK-2) CK-MB (CK-2) Rel Index Albumin Ur Specific [place] Urine WBC (Auto) Digoxin Salicylates Acetaminophen 06/19/19 06/19/19 06/19/19 12:40 14:14 14:14 WBC Hgb MCH RDW Plt Count [place] % (Auto) Lymph # Seg Neutrophils % Seg Neuts % (Manual) Lymphocytes % (Manual) Seg Neutrophils # Man Lymphocytes # (Manual) Monocytes # (Manual) D-Dimer 1177.30 H ABG pH ABG pO2 ABG HCO3 ABG O2 Saturation ABG Base Excess ABG Hemoglobin Oxyhemoglobin Sodium Potassium Chloride Carbon Dioxide BUN Creatinine Glucose POC Glucose Calcium Magnesium Lactate Dehydrogenase 290 H CK-MB (CK-2) CK-MB (CK-2) Rel Index Albumin Ur Specific [place] 1.032 H Urine WBC (Auto) Digoxin Salicylates Acetaminophen 06/19/19 06/19/19 06/19/19 16:40 17:00 23:50 WBC Hgb MCH RDW Plt Count [place] % (Auto) Lymph # Seg Neutrophils % Seg Neuts % (Manual) Lymphocytes % (Manual) Seg Neutrophils # Man Lymphocytes # (Manual) Monocytes # (Manual) D-Dimer ABG pH ABG pO2 54.2 L ABG HCO3 32.1 H ABG O2 Saturation 87.8 L ABG Base Excess 6.3 H ABG Hemoglobin 11.2 L Oxyhemoglobin 85.9 L Sodium Potassium Chloride Carbon Dioxide BUN Creatinine Glucose POC Glucose 137 H 148 H Calcium Magnesium Lactate Dehydrogenase CK-MB (CK-2) CK-MB (CK-2) Rel Index Albumin Ur Specific [place] Urine WBC (Auto) Digoxin Salicylates Acetaminophen 06/20/19 06/20/19 06/20/19 05:14 05:30 05:40 WBC 16.4 H Hgb MCH 25 L RDW 18.3 H Plt Count 79 L [place] % (Auto) Lymph # Seg Neutrophils % Seg Neuts % (Manual) Lymphocytes % (Manual) Seg Neutrophils # Man Lymphocytes # (Manual) Monocytes # (Manual) D-Dimer ABG pH ABG pO2 63.4 L ABG HCO3 32.9 H ABG O2 Saturation 91.8 L ABG Base Excess 6.2 H ABG Hemoglobin 10.4 L Oxyhemoglobin 89.7 L Sodium Potassium Chloride Carbon Dioxide BUN Creatinine Glucose POC Glucose 164 H Calcium Magnesium Lactate Dehydrogenase CK-MB (CK-2) CK-MB (CK-2) Rel Index Albumin Ur Specific [place] Urine WBC (Auto) Digoxin Salicylates Acetaminophen 06/20/19 06/20/19 06/20/19 05:40 12:35 18:32 WBC Hgb MCH RDW Plt Count [place] % (Auto) Lymph # Seg Neutrophils % Seg Neuts % (Manual) Lymphocytes % (Manual) Seg Neutrophils # Man Lymphocytes # (Manual) Monocytes # (Manual) D-Dimer ABG pH ABG pO2 ABG HCO3 ABG O2 Saturation ABG Base Excess ABG Hemoglobin Oxyhemoglobin Sodium Potassium Chloride Carbon Dioxide 31 H BUN 25 H Creatinine 0.3 L Glucose 150 H POC Glucose 162 H 159 H Calcium Magnesium Lactate Dehydrogenase CK-MB (CK-2) CK-MB (CK-2) Rel Index Albumin Ur Specific [place] Urine WBC (Auto) Digoxin Salicylates Acetaminophen 06/21/19 06/21/19 06/21/19 00:12 04:58 04:58 WBC 13.9 H Hgb 9.7 L MCH 25 L RDW 17.9 H Plt Count 85 L [place] % (Auto) Lymph # Seg Neutrophils % Seg Neuts % (Manual) Lymphocytes % (Manual) Seg Neutrophils # Man Lymphocytes # (Manual) Monocytes # (Manual) D-Dimer ABG pH ABG pO2 ABG HCO3 ABG O2 Saturation ABG Base Excess ABG Hemoglobin Oxyhemoglobin Sodium Potassium Chloride Carbon Dioxide 31 H BUN 23 H Creatinine 0.3 L Glucose 142 H POC Glucose 144 H Calcium Magnesium Lactate Dehydrogenase CK-MB (CK-2) CK-MB (CK-2) Rel Index Albumin Ur Specific [place] Urine WBC (Auto) Digoxin Salicylates Acetaminophen 06/21/19 06/21/19 06/21/19 05:42 12:43 23:17 WBC Hgb MCH RDW Plt Count [place] % (Auto) Lymph # Seg Neutrophils % Seg Neuts % (Manual) Lymphocytes % (Manual) Seg Neutrophils # Man Lymphocytes # (Manual) Monocytes # (Manual) D-Dimer ABG pH ABG pO2 ABG HCO3 ABG O2 Saturation ABG Base Excess ABG Hemoglobin Oxyhemoglobin Sodium Potassium Chloride Carbon Dioxide BUN Creatinine Glucose POC Glucose 137 H 118 H 141 H Calcium Magnesium Lactate Dehydrogenase CK-MB (CK-2) CK-MB (CK-2) Rel Index Albumin Ur Specific [place] Urine WBC (Auto) Digoxin Salicylates Acetaminophen 06/22/19 06/22/19 06/22/19 05:28 12:11 18:27 WBC Hgb MCH RDW Plt Count [place] % (Auto) Lymph # Seg Neutrophils % Seg Neuts % (Manual) Lymphocytes % (Manual) Seg Neutrophils # Man Lymphocytes # (Manual) Monocytes # (Manual) D-Dimer ABG pH ABG pO2 ABG HCO3 ABG O2 Saturation ABG Base Excess ABG Hemoglobin Oxyhemoglobin Sodium Potassium Chloride Carbon Dioxide BUN Creatinine Glucose POC Glucose 144 H 138 H 169 H Calcium Magnesium Lactate Dehydrogenase CK-MB (CK-2) CK-MB (CK-2) Rel Index Albumin Ur Specific [place] Urine WBC (Auto) Digoxin Salicylates Acetaminophen 06/23/19 06/23/19 06/23/19 00:12 05:05 05:05 WBC 11.5 H Hgb MCH 25 L RDW 17.5 H Plt Count 98 L [place] % (Auto) Lymph # Seg Neutrophils % Seg Neuts % (Manual) 88.0 H Lymphocytes % (Manual) 4.0 L Seg Neutrophils # Man 10.1 H Lymphocytes # (Manual) 0.5 L Monocytes # (Manual) D-Dimer ABG pH ABG pO2 ABG HCO3 ABG O2 Saturation ABG Base Excess ABG Hemoglobin Oxyhemoglobin Sodium 133 L Potassium 5.3 H Chloride 95.5 L Carbon Dioxide BUN 24 H Creatinine 0.3 L Glucose 168 H POC Glucose 154 H Calcium Magnesium 2.60 H Lactate Dehydrogenase CK-MB (CK-2) CK-MB (CK-2) Rel Index Albumin Ur Specific [place] Urine WBC (Auto) Digoxin Salicylates Acetaminophen 06/23/19 06/23/19 06/23/19 05:15 08:50 12:00 WBC Hgb MCH RDW Plt Count [place] % (Auto) Lymph # Seg Neutrophils % Seg Neuts % (Manual) Lymphocytes % (Manual) Seg Neutrophils # Man Lymphocytes # (Manual) Monocytes # (Manual) D-Dimer ABG pH ABG pO2 56.9 L ABG HCO3 33.2 H ABG O2 Saturation 88.0 L ABG Base Excess 7.0 H ABG Hemoglobin 9.9 L Oxyhemoglobin 86.4 L Sodium Potassium Chloride Carbon Dioxide BUN Creatinine Glucose POC Glucose 174 H 168 H Calcium Magnesium Lactate Dehydrogenase CK-MB (CK-2) CK-MB (CK-2) Rel Index Albumin Ur Specific [place] Urine WBC (Auto) Digoxin Salicylates Acetaminophen 06/23/19 06/23/19 06/24/19 17:54 23:55 04:41 WBC Hgb MCH RDW Plt Count [place] % (Auto) Lymph # Seg Neutrophils % Seg Neuts % (Manual) Lymphocytes % (Manual) Seg Neutrophils # Man Lymphocytes # (Manual) Monocytes # (Manual) D-Dimer ABG pH ABG pO2 ABG HCO3 ABG O2 Saturation ABG Base Excess ABG Hemoglobin Oxyhemoglobin Sodium Potassium Chloride Carbon Dioxide BUN Creatinine Glucose POC Glucose 146 H 145 H Calcium Magnesium Lactate Dehydrogenase CK-MB (CK-2) CK-MB (CK-2) Rel Index Albumin Ur Specific [place] Urine WBC (Auto) Digoxin 0.5 L Salicylates Acetaminophen 06/24/19 06/24/19 06/24/19 05:53 12:01 16:55 WBC Hgb MCH RDW Plt Count [place] % (Auto) Lymph # Seg Neutrophils % Seg Neuts % (Manual) Lymphocytes % (Manual) Seg Neutrophils # Man Lymphocytes # (Manual) Monocytes # (Manual) D-Dimer ABG pH ABG pO2 ABG HCO3 ABG O2 Saturation ABG Base Excess ABG Hemoglobin Oxyhemoglobin Sodium Potassium Chloride Carbon Dioxide BUN Creatinine Glucose POC Glucose 184 H 178 H 152 H Calcium Magnesium Lactate Dehydrogenase CK-MB (CK-2) CK-MB (CK-2) Rel Index Albumin Ur Specific [place] Urine WBC (Auto) Digoxin Salicylates Acetaminophen 06/25/19 06/25/19 06/25/19 00:10 04:37 04:38 WBC 17.9 H Hgb MCH 25 L RDW 18.3 H Plt Count 124 L [place] % (Auto) Lymph # Seg Neutrophils % Seg Neuts % (Manual) 94.0 H Lymphocytes % (Manual) 1.0 L Seg Neutrophils # Man 16.8 H Lymphocytes # (Manual) 0.2 L Monocytes # (Manual) 0.9 H D-Dimer ABG pH ABG pO2 62.7 L ABG HCO3 33.0 H ABG O2 Saturation 91.8 L ABG Base Excess 7.8 H ABG Hemoglobin 10.0 L Oxyhemoglobin 90.2 L Sodium Potassium Chloride Carbon Dioxide BUN Creatinine Glucose POC Glucose 145 H Calcium Magnesium Lactate Dehydrogenase CK-MB (CK-2) CK-MB (CK-2) Rel Index Albumin Ur Specific [place] Urine WBC (Auto) Digoxin Salicylates Acetaminophen 06/25/19 06/25/19 06/25/19 04:38 05:40 12:45 WBC Hgb MCH RDW Plt Count [place] % (Auto) Lymph # Seg Neutrophils % Seg Neuts % (Manual) Lymphocytes % (Manual) Seg Neutrophils # Man Lymphocytes # (Manual) Monocytes # (Manual) D-Dimer ABG pH ABG pO2 ABG HCO3 ABG O2 Saturation ABG Base Excess ABG Hemoglobin Oxyhemoglobin Sodium Potassium Chloride 95.4 L Carbon Dioxide 31 H BUN 22 H Creatinine 0.3 L Glucose 126 H POC Glucose 128 H 169 H Calcium Magnesium Lactate Dehydrogenase CK-MB (CK-2) CK-MB (CK-2) Rel Index Albumin Ur Specific [place] Urine WBC (Auto) Digoxin Salicylates Acetaminophen 06/25/19 06/26/19 06/26/19 16:57 00:30 05:22 WBC Hgb MCH RDW Plt Count [place] % (Auto) Lymph # Seg Neutrophils % Seg Neuts % (Manual) Lymphocytes % (Manual) Seg Neutrophils # Man Lymphocytes # (Manual) Monocytes # (Manual) D-Dimer ABG pH ABG pO2 ABG HCO3 ABG O2 Saturation ABG Base Excess ABG Hemoglobin Oxyhemoglobin Sodium Potassium Chloride Carbon Dioxide BUN Creatinine Glucose POC Glucose 130 H 167 H 155 H Calcium Magnesium Lactate Dehydrogenase CK-MB (CK-2) CK-MB (CK-2) Rel Index Albumin Ur Specific [place] Urine WBC (Auto) Digoxin Salicylates Acetaminophen 06/26/19 06/26/19 06/27/19 12:02 23:57 05:54 WBC Hgb MCH RDW Plt Count [place] % (Auto) Lymph # Seg Neutrophils % Seg Neuts % (Manual) Lymphocytes % (Manual) Seg Neutrophils # Man Lymphocytes # (Manual) Monocytes # (Manual) D-Dimer ABG pH ABG pO2 ABG HCO3 ABG O2 Saturation ABG Base Excess ABG Hemoglobin Oxyhemoglobin Sodium Potassium Chloride Carbon Dioxide BUN Creatinine Glucose POC Glucose 130 H 155 H 152 H Calcium Magnesium Lactate Dehydrogenase CK-MB (CK-2) CK-MB (CK-2) Rel Index Albumin Ur Specific [place] Urine WBC (Auto) Digoxin Salicylates Acetaminophen 06/27/19 06/27/19 06/27/19 12:09 13:41 13:41 WBC 15.0 H Hgb 10.0 L MCH 25 L RDW 17.9 H Plt Count 114 L [place] % (Auto) Lymph # Seg Neutrophils % Seg Neuts % (Manual) 98.0 H Lymphocytes % (Manual) 0 L Seg Neutrophils # Man 14.7 H Lymphocytes # (Manual) 0.0 L Monocytes # (Manual) D-Dimer ABG pH ABG pO2 ABG HCO3 ABG O2 Saturation ABG Base Excess ABG Hemoglobin Oxyhemoglobin Sodium 135 L Potassium Chloride 96.5 L Carbon Dioxide BUN 21 H Creatinine 0.2 L Glucose 161 H POC Glucose 150 H Calcium Magnesium Lactate Dehydrogenase CK-MB (CK-2) CK-MB (CK-2) Rel Index Albumin Ur Specific [place] Urine WBC (Auto) Digoxin Salicylates Acetaminophen 06/27/19 06/28/19 06/28/19 18:03 00:22 00:58 WBC 16.2 H Hgb MCH 25 L RDW 18.2 H Plt Count 130 L [place] % (Auto) Lymph # Seg Neutrophils % Seg Neuts % (Manual) 98.0 H Lymphocytes % (Manual) 0 L Seg Neutrophils # Man 15.9 H Lymphocytes # (Manual) 0.0 L Monocytes # (Manual) D-Dimer ABG pH ABG pO2 ABG HCO3 ABG O2 Saturation ABG Base Excess ABG Hemoglobin Oxyhemoglobin Sodium Potassium Chloride Carbon Dioxide BUN Creatinine Glucose POC Glucose 156 H 150 H Calcium Magnesium Lactate Dehydrogenase CK-MB (CK-2) CK-MB (CK-2) Rel Index Albumin Ur Specific [place] Urine WBC (Auto) Digoxin Salicylates Acetaminophen 06/28/19 06/28/19 06/28/19 00:58 05:19 12:14 WBC Hgb MCH RDW Plt Count [place] % (Auto) Lymph # Seg Neutrophils % Seg Neuts % (Manual) Lymphocytes % (Manual) Seg Neutrophils # Man Lymphocytes # (Manual) Monocytes # (Manual) D-Dimer ABG pH ABG pO2 ABG HCO3 ABG O2 Saturation ABG Base Excess ABG Hemoglobin Oxyhemoglobin Sodium Potassium Chloride 96.5 L Carbon Dioxide 32 H BUN 21 H Creatinine 0.2 L Glucose 140 H POC Glucose 122 H 137 H Calcium Magnesium Lactate Dehydrogenase CK-MB (CK-2) CK-MB (CK-2) Rel Index Albumin Ur Specific [place] Urine WBC (Auto) Digoxin Salicylates Acetaminophen 06/28/19 06/28/19 06/29/19 12:20 17:06 00:20 WBC Hgb MCH RDW Plt Count [place] % (Auto) Lymph # Seg Neutrophils % Seg Neuts % (Manual) Lymphocytes % (Manual) Seg Neutrophils # Man Lymphocytes # (Manual) Monocytes # (Manual) D-Dimer ABG pH 7.464 H ABG pO2 64.2 L ABG HCO3 33.4 H ABG O2 Saturation 93.7 L ABG Base Excess 8.6 H ABG Hemoglobin 11.2 L Oxyhemoglobin 92.0 L Sodium Potassium Chloride Carbon Dioxide BUN Creatinine Glucose POC Glucose 154 H 156 H Calcium Magnesium Lactate Dehydrogenase CK-MB (CK-2) CK-MB (CK-2) Rel Index Albumin Ur Specific [place] Urine WBC (Auto) Digoxin Salicylates Acetaminophen 06/29/19 06/29/19 06/29/19 05:10 05:31 05:31 WBC 14.3 H Hgb MCH 25 L RDW 18.6 H Plt Count 122 L [place] % (Auto) Lymph # Seg Neutrophils % Seg Neuts % (Manual) 96.0 H Lymphocytes % (Manual) 1.0 L Seg Neutrophils # Man 13.7 H Lymphocytes # (Manual) 0.1 L Monocytes # (Manual) D-Dimer ABG pH ABG pO2 ABG HCO3 ABG O2 Saturation ABG Base Excess ABG Hemoglobin Oxyhemoglobin Sodium Potassium Chloride 95.6 L Carbon Dioxide BUN 26 H Creatinine 0.2 L Glucose 135 H POC Glucose 139 H Calcium Magnesium Lactate Dehydrogenase CK-MB (CK-2) CK-MB (CK-2) Rel Index Albumin Ur Specific [place] Urine WBC (Auto) Digoxin Salicylates Acetaminophen 06/29/19 06/29/19 06/30/19 12:26 18:10 00:41 WBC Hgb MCH RDW Plt Count [place] % (Auto) Lymph # Seg Neutrophils % Seg Neuts % (Manual) Lymphocytes % (Manual) Seg Neutrophils # Man Lymphocytes # (Manual) Monocytes # (Manual) D-Dimer ABG pH ABG pO2 ABG HCO3 ABG O2 Saturation ABG Base Excess ABG Hemoglobin Oxyhemoglobin Sodium Potassium Chloride Carbon Dioxide BUN Creatinine Glucose POC Glucose 144 H 153 H 127 H Calcium Magnesium Lactate Dehydrogenase CK-MB (CK-2) CK-MB (CK-2) Rel Index Albumin Ur Specific [place] Urine WBC (Auto) Digoxin Salicylates Acetaminophen 06/30/19 06/30/19 07/01/19 05:11 11:52 04:30 WBC 13.2 H Hgb MCH 25 L RDW 18.4 H Plt Count 89 L [place] % (Auto) Lymph # Seg Neutrophils % Seg Neuts % (Manual) 95.0 H Lymphocytes % (Manual) 2.0 L Seg Neutrophils # Man 12.5 H Lymphocytes # (Manual) 0.3 L Monocytes # (Manual) D-Dimer ABG pH ABG pO2 ABG HCO3 ABG O2 Saturation ABG Base Excess ABG Hemoglobin Oxyhemoglobin Sodium Potassium Chloride Carbon Dioxide BUN Creatinine Glucose POC Glucose 151 H 136 H Calcium Magnesium Lactate Dehydrogenase CK-MB (CK-2) CK-MB (CK-2) Rel Index Albumin Ur Specific [place] Urine WBC (Auto) Digoxin Salicylates Acetaminophen 07/01/19 07/01/19 04:30 05:57 WBC Hgb MCH RDW Plt Count [place] % (Auto) Lymph # Seg Neutrophils % Seg Neuts % (Manual) Lymphocytes % (Manual) Seg Neutrophils # Man Lymphocytes # (Manual) Monocytes # (Manual) D-Dimer ABG pH ABG pO2 ABG HCO3 ABG O2 Saturation ABG Base Excess ABG Hemoglobin Oxyhemoglobin Sodium Potassium Chloride 96.0 L Carbon Dioxide BUN 24 H Creatinine 0.2 L Glucose 113 H POC Glucose 124 H Calcium Magnesium Lactate Dehydrogenase CK-MB (CK-2) CK-MB (CK-2) Rel Index Albumin Ur Specific [place] Urine WBC (Auto) Digoxin Salicylates Acetaminophen Chest x-ray: image reviewed Allied health notes reviewed: RT
--- NOTE | 2019-07-01 10:27 | Progress Note ---
Assessment and Plan Paroxysmal Atrial flutter/afib/MAT currently in sinus rhythm now on amiodarone and diltiazem for suppression. not on anticoagulation secondary to history of melena and anemia. Respiratory failure s/p intubation COPD exacerbation on home oxygen History of [place]/Coronary artery disease EF 45-50% by echo 08/2018 [facility]: DIGITAL COORDINATOR of the RCA recommend for medical therapy. She did undergo PCI of the mid LAD using bare metal stent. Recommend: Continue oral Cardizem and Amiodarone as tolerated for paroxysmal atrial flut ter. Otherwise, conservative cardiac management. Subjective Date of service: 07/01/19 Principal diagnosis: Ac and ch hypoxic & hypercapnic resp failure; AE-COPD; Tobacco use disorder Interval history: Stable sinus rhythm on telemetry. No cardiac events. Objective Vital Signs Temp Pulse Pulse Pulse Pulse Pulse Resp 07/01/19 09:00 81 19 07/01/19 08:30 74 21 07/01/19 08:00 69 87 69 22 07/01/19 07:30 83 13 07/01/19 07:00 103 H 17 07/01/19 06:30 88 14 07/01/19 06:26 89 07/01/19 06:00 104 H 13 07/01/19 05:30 67 16 07/01/19 05:00 74 15 07/01/19 04:47 63 07/01/19 04:30 61 15 07/01/19 04:00 97.6 F 67 68 16 07/01/19 03:30 66 16 07/01/19 03:00 72 16 07/01/19 02:30 77 16 07/01/19 02:00 85 15 07/01/19 01:30 119 H 26 H 07/01/19 01:00 97 H 16 07/01/19 00:50 83 07/01/19 00:30 91 H 15 07/01/19 00:27 93 H 18 07/01/19 00:00 97.6 F 99 H 18 06/30/19 23:30 113 H 17 06/30/19 23:00 119 H 20 06/30/19 22:36 116 H 15 06/30/19 22:30 118 H 16 06/30/19 22:25 111 H 14 06/30/19 22:00 116 H 19 06/30/19 21:31 70 05/13/20 21:30 75 14 06/30/19 21:19 74 06/30/19 21:17 88 06/30/19 21:00 70 12 06/30/19 20:37 95 H 95 H 26 H 06/30/19 20:30 76 11 L 06/30/19 20:00 98.4 F 73 26 H 06/30/19 19:32 85 06/30/19 19:30 115 H 21 06/30/19 19:00 93 H 16 06/30/19 18:30 15 06/30/19 18:00 76 12 06/30/19 17:30 74 11 L 06/30/19 17:00 82 12 06/30/19 16:45 99 H 16 06/30/19 16:30 69 16 06/30/19 16:00 98.0 F 73 11 L 06/30/19 15:30 84 13 06/30/19 15:00 91 H 18 06/30/19 14:30 83 15 06/30/19 14:27 82 06/30/19 14:00 99 H 19 06/30/19 13:30 106 H 19 06/30/19 13:00 103 H 16 06/30/19 12:30 115 H 23 06/30/19 12:12 118 H 21 06/30/19 12:00 98.9 F 116 H 95 H 72 95 H 14 06/30/19 11:30 122 H 18 06/30/19 11:00 102 H 18 06/30/19 10:30 105 H 18 Resp BP Pulse Ox 07/01/19 09:00 139/71 93 07/01/19 08:30 139/71 94 07/01/19 08:00 20 139/71 98 07/01/19 07:30 112/75 98 07/01/19 07:00 112/75 98 07/01/19 06:30 112/75 98 07/01/19 06:26 112/75 07/01/19 06:00 112/75 98 07/01/19 05:30 111/46 97 07/01/19 05:00 103/51 98 07/01/19 04:47 103/51 98 07/01/19 04:30 103/51 98 07/01/19 04:00 99/50 97 05/14/20 03:30 99/50 97 05/ 03:00 99/50 97 05 02:30 108/58 97 05 02:00 108/58 97 05 01:30 102/63 96 05 01:00 102/63 94 07/01/19 00:50 102/63 98 0514 00:30 106/49 94 0514 00:27 97 05 00:00 113/70 93 05 23:30 113/70 92 05 23:00 115/64 93 05 22:36 115/64 93 05 22:30 115/64 92 05 22:25 115/64 93 05 22:00 118/65 94 05 21:31 15 05 21:30 118/65 97 05 21:19 118/65 98 05 21:17 118/65 05 21:00 145/76 98 0520 20:37 97 05 20:30 145/76 97 05 20:00 132/78 05 19:32 104/80 05 19:30 05 19:00 132/78 96 05 18:30 117/68 95 05 18:00 140/81 05 17:30 140/81 98 05 17:00 105/54 94 05 16:45 105/54 98 0520 16:30 105/54 94 05 16:00 120/48 95 05/20 15:30 120/48 94 05 15:00 129/78 95 0520 14:30 129/78 92 05 14:27 15 05 14:00 139/83 93 05 13:30 131/77 0520 13:00 116/67 94 05 12:30 121/82 92 05 12:12 98 05 12:00 121/82 94 05/20 11:30 [id number] 92 06/30/19 11:00 97/70 92 06/30/19 10:30 121/76 95 - Physical Examination General: Other (intubated) Cardiac: Positive: Reg Rate and Rhythm - Labs and Meds CBC 07/01/19 Range/Units 04:30 WBC 13.2 H (4.5-11.0) K/mm3 RBC 4.04 (3.65-5.03) M/mm3 Hgb 10.1 (10.1-14.3) gm/dl Hct 32.7 (30.3-42.9) % Plt Count 89 L (140-440) K/mm3 Comprehensive Metabolic Panel 07/01/19 Range/Units 04:30 Sodium 137 (137-145) mmol/L Potassium 4.9 (3.6-5.0) mmol/L Chloride 96.0 L (98-107) mmol/L Carbon Dioxide 30 (22-30) mmol/L BUN 24 H (7-17) mg/dL Creatinine 0.2 L (0.7-1.2) mg/dL Glucose 113 H (65-100) mg/dL Calcium 8.5 (8.4-10.2) mg/dL - Allied health notes Allied health notes reviewed: nursing
--- NOTE | 2019-07-01 17:40 | Progress Note ---
Assessment and Plan /Acute hypoxic and hypercapnic on chronic respiratory failure: On vent > 96 hours Due to acute COPD exacerbation and underlying pneumonia On nebs, steroids, supportive care Wean off as tolerated and extubate,pulmonary following /sepsis/pneumonia/sputum Pseudomonas 06/11/2019; present on admission ID following , continue cefepime Sputum cultures again positive Pseudomonas on 06/19/2019 Negative for COVID-19 /Hypertension; moderate control Continue current antihypertensives and PRN hydralazine /Paroxysmal A. fib/flutter; RVR On amiodarone, digoxin and Cardizem Closely monitor, cardiology following-digoxin adjusted to 0.125 mg every other day per cardiology Changed amiodarone to 100 mg daily No chronic anticoagulation due to history of GI bleed /History of coronary artery disease/CHF EF 45-50% by echo 08/2018 Low-dose Lasix, continue other cardiac meds /Hypernatremia; resolved monitor sodium levels /History of depression; hold antidepressive medications for now as intubated /Ongoing tobacco use; Will commercial counsel smoking cessation when patient is more stable /Obesity; BMI 32.2 Patient needs weight reduction when medically stable /Thrombocytopenia; HIT antibody negative --Tube feeding diet; per dietary recommendations --DVT prophylaxis; Lovenox --Full CODE STATUS Restraints in place. Patient is critically ill with poor prognosis Closely monitor the patient and adjust management as needed Follow [employer] sales consultant recommendations The high probability of a clinically significant, sudden or life threatening deterioration of the [respiratory, CVS] system(s) required my full and direct attention, intervention and personal management. The aggregate critical care time was [31] minutes. This time is in addition to time spent performing reported procedures but includes the following: [x] Data Review and interpretation [x] Patient assessment and monitoring of vital signs [x] Documentation [x] Medication orders and management Critical care time 35 minutes Disposition; placement to LTAC pending Brief history: 59-year-old female patient with significant history of hypertension GERD depression COPD coronary artery disease CHF was admitted through emergency room with acute hypoxic hypercapnic respiratory failure requiring intubation and ventilatory support. Admitted to ICU evaluated by pulmonary critical, cardiology for A. fib flutter with rapid ventricular rate, started on Cardizem and amiodarone. Not a candidate for anticoagulation due to history of severe GI bleeding. Patient had mild hypotension, improved with holding Blood pressure and diuretic meds. Sputum cultures positive for Pseudomonas, on cefepime, ID following. Wean off vent as tolerated and extubate Physical exam: General appearance: Present: no acute distress, well-nourished, obese, other (On vent) - EENT Eyes: Present: PERRL, EOM intact - Neck Neck: Present: supple, normal ROM - Respiratory Respiratory effort: normal Respiratory: bilateral: diminished, rhonchi, negative: rales, wheezing - Cardiovascular Rhythm: regular Heart Sounds: Present: S1 & S2 - Extremities Extremities: no ischemia, No edema - Abdominal General gastrointestinal: soft, non-tender, non-distended, normal bowel sounds - Integumentary Integumentary: Present: clear, warm - Psychiatric Psychiatric: other (Alert and awake on vent) - Neurologic Neurologic: other (On vent) Subjective Date of service: 07/01/19 Principal diagnosis: Ac and ch hypoxic & hypercapnic resp failure; AE-COPD; Tobacco use disorder Interval history: Patient seen and examined. Medical records and medication list reviewed. No acute event overnight noted by the RN. Patient remains on vent, placement pending Objective - Constitutional Vitals: Vital Signs - 12hr 07/01/19 07/01/19 07/01/19 06:00 06:26 06:30 Temperature Pulse Rate 104 H 89 88 Pulse Rate [ Bilateral] Pulse Rate [ From Monitor] Respiratory 13 14 Rate Respiratory Rate [Bilateral ] Blood Pressure 112/75 112/75 112/75 O2 Sat by Pulse 98 98 Oximetry 07/01/19 07/01/19 07/01/19 07:00 07:30 08:00 Temperature Pulse Rate 103 H 83 69 Pulse Rate [ 87 Bilateral] Pulse Rate [ 69 From Monitor] Respiratory 17 13 22 Rate Respiratory 20 Rate [Bilateral ] Blood Pressure 112/75 112/75 139/71 O2 Sat by Pulse 98 98 98 Oximetry 07/01/19 07/01/19 07/01/19 08:30 09:00 09:30 Temperature Pulse Rate 74 81 74 Pulse Rate [ Bilateral] Pulse Rate [ From Monitor] Respiratory 21 19 14 Rate Respiratory Rate [Bilateral ] Blood Pressure 139/71 139/71 138/65 O2 Sat by Pulse 94 93 92 Oximetry 07/01/19 07/01/19 07/01/19 10:00 10:30 11:00 Temperature Pulse Rate 71 68 85 Pulse Rate [ Bilateral] Pulse Rate [ From Monitor] Respiratory 12 11 L 14 Rate Respiratory Rate [Bilateral ] Blood Pressure 138/65 98/42 98/42 O2 Sat by Pulse 94 94 96 Oximetry 07/01/19 07/01/19 07/01/19 11:30 11:48 11:50 Temperature Pulse Rate 78 71 Pulse Rate [ Bilateral] Pulse Rate [ 71 From Monitor] Respiratory 11 L 11 L 23 Rate Respiratory Rate [Bilateral ] Blood Pressure 96/45 96/45 O2 Sat by Pulse 97 98 97 Oximetry 07/01/19 07/01/19 07/01/19 12:00 12:30 13:00 Temperature 98.3 F Pulse Rate 73 68 66 Pulse Rate [ Bilateral] Pulse Rate [ From Monitor] Respiratory 11 L 12 10 L Rate Respiratory Rate [Bilateral ] Blood Pressure 96/45 95/33 95/33 O2 Sat by Pulse 98 98 98 Oximetry 07/01/19 07/01/19 07/01/19 13:30 13:42 14:00 Temperature Pulse Rate 67 95 H 68 Pulse Rate [ Bilateral] Pulse Rate [ From Monitor] Respiratory 12 10 L Rate Respiratory Rate [Bilateral ] Blood Pressure 94/37 151/71 151/71 O2 Sat by Pulse 99 98 Oximetry 07/01/19 07/01/19 07/01/19 14:30 15:00 15:30 Temperature Pulse Rate 65 63 61 Pulse Rate [ Bilateral] Pulse Rate [ From Monitor] Respiratory 10 L 9 L 11 L Rate Respiratory Rate [Bilateral ] Blood Pressure 113/55 113/55 99/48 O2 Sat by Pulse 99 99 98 Oximetry 07/01/19 07/01/19 07/01/19 16:00 16:30 17:00 Temperature 97.4 F L Pulse Rate 70 67 65 Pulse Rate [ Bilateral] Pulse Rate [ 65 From Monitor] Respiratory 11 L 11 L 9 L Rate Respiratory Rate [Bilateral ] Blood Pressure 100/53 100/53 92/48 O2 Sat by Pulse 98 99 97 Oximetry - Labs CBC & Chem 7: 07/01/19 04:30 07/06/19 04:51 Labs: Abnormal lab results 07/01/19 07/01/19 07/01/19 Range/Units 04:30 04:30 05:57 WBC 13.2 H (4.5-11.0) K/mm3 MCH 25 L (28-32) pg RDW 18.4 H (13.2-15.2) % Plt Count 89 L (140-440) K/mm3 Seg Neuts % (Manual) 95.0 H (40.0-70.0) % Lymphocytes % (Manual) 2.0 L (13.4-35.0) % Seg Neutrophils # Man 12.5 H (1.8-7.7) K/mm3 Lymphocytes # (Manual) 0.3 L (1.2-5.4) K/mm3 Chloride 96.0 L (98-107) mmol/L BUN 24 H (7-17) mg/dL Creatinine 0.2 L (0.7-1.2) mg/dL Glucose 113 H (65-100) mg/dL POC Glucose 124 H (70-105) HEART Score - HEART Score Troponin: Troponin T < 0.010 ng/mL (0.00-0.029) 06/12/19 05:09
[2019-07-01] MEDS: fentaNYL DRIP Premix 2,000 MCG/100 ML BAG IV SCH (23:57)
[2019-07-02] MEDS: INSULIN LISPRO 100 UNIT/ML SUB-Q SCH ×4 (00:36→17:11)
[2019-07-02] MEDS: dilTIAZem 30 MG TAB PO SCH ×3 (05:03→21:53)
[2019-07-02] MEDS: methylPREDNISolone Sod Succinate 40 MG/1 ML INJ IV SCH ×3 (05:03→18:20)
[2019-07-02] MEDS: IPRATROPIUM/ALBUTEROL SULFATE 3 ML AMPUL.NEB IH SCH ×3 (07:49→20:31)
[2019-07-02] MEDS: BUDESONIDE 0.5 MG/2 ML NEBU IH SCH ×2 (07:49→20:31)
[2019-07-02] MEDS: ARFORMOTEROL 15 MCG/2 ML NEBU IH SCH ×2 (07:49→20:31)
[2019-07-02] MEDS: DOCUSATE SODIUM 100 MG/10 ML ORAL LIQD PO SCH ×2 (10:00→21:54)
[2019-07-02] MEDS: QUEtiapine 100 MG TAB PO SCH ×2 (10:00→21:55)
[2019-07-02] MEDS: LANSOPRAZOLE 30 MG SOLUTAB FEEDTUBE SCH (10:00)
[2019-07-02] MEDS: VENLAFAXINE 75 MG TAB PO SCH ×3 (10:00→21:55)
[2019-07-02] MEDS: AMIODARONE 200 MG TAB PO SCH (10:01)
--- NOTE | 2019-07-02 12:30 | Progress Note ---
Assessment and Plan Acute and chronic hypoxic and hypercapnic respiratory failure on MVS Acute exacerbation of COPD Pseudomonas pneumonia Thrombocytopenia, HIT negative History of coronary artery disease/CHF History of depression; Obesity; BMI 32.2 Chronic narcotic dependence Tobacco use disorder/Nicotine dependence Place on PSV 8, get weaning parameters, if acceptable plan to liberated from MVS Stop Fentanyl infusion Steroid taper, stopped solumedrol, start prednisone oral taper ABG, CXR in am, post extubation follow up CBC , BMP prn Continue all current care Critical care bundles addressed Bowel regimen -Continue with MVS, Lung protective strategies, monitor airway pressures -Adjust minute ventilation as indicated for better gas exchange -VAP bundle addressed -Aspiration precautions, HOB>40 -Daily assessment for readiness for weaning; SAT and SBT -Antibiotics for severe [id number] course -Steroids with slow taper -Bronchodilators with pulmonary hygiene -Stress ulcer prophylaxis, VTE prophylaxis( Prevacid, SCD) -Continue enteric nutritional support -Continue to monitor glycemic control, with target blood glucose 140-180 mg/dL while critically ill. -Avoid hypoglycemia - Wean supplemental oxygen for target O2 sat's > 90% - Avoid benzodiazepines to reduce the possibility of delirium - prn analgesia per CPOT score - Mobility protocol , off loading and skin assessment per protocol for pressure ulcer prevention - Monitor hemodynamics closely -Nicotine withdrawal precautions -Smoking cessation counselling once she is extubated and able to participate in the discussion -Chronic home medications as indicated - continue other care per attending / other consultants CONDITION: CRITICAL PROGNOSIS: GUARDED CODE STATUS: FULL CODE Life threatening condition from acute and chronic hypoxic-hypercapnic respiratory failure with ventilator dependency Mortality/Morbidity- High Complexity of decision making- High The high probability of a clinically significant, sudden or life-threatening deterioration of the [respiratory, ] system(s) required my full and direct attention, intervention and personal management. The aggregate critical care time was [31] minutes without overlap. Time includes spent on; [x] Data Review and interpretation [x] Patient assessment and monitoring of vital signs [x] Documentation [x] Medication orders and management Subjective Date of service: 07/02/19 Principal diagnosis: Ac and ch hypoxic & hypercapnic resp failure; AE-COPD; Tobacco use disorder Interval history: Patient is seen today for: Ac and ch hypoxic hypercapnic resp failure; AE-COPD; Tobacco use disorder/Nicotine dependence; Hypernatremia; HTN (hypotensive at presentation ); Chronic narcotic dependence ; Chronic back pain; Anxiety disorder Seen and examined at bedside; 24-hour events reviewed; nursing and respiratory care staff consulted; no adverse overnight events reported to me; laying in bed;Remains on full MVS, on Fentanyl at 1mcg, requires it in order for her to tolerate PSV. No vomiting, no fevers Tolerating some PSV 1o/6, calm- spontnaeously generated volumes of 300 Has completed course of antibiotics, great urine output. Vitals, labs, medications, chart reviewed Objective Vital Signs - 12hr 07/02/19 07/02/19 07/02/19 00:30 01:00 01:30 Temperature Pulse Rate 114 H 110 H 110 H Pulse Rate [ Bilateral] Pulse Rate [ From Monitor] Respiratory 16 19 21 Rate Respiratory Rate [Bilateral ] Blood Pressure 125/79 123/80 123/80 O2 Sat by Pulse 96 96 95 Oximetry 07/02/19 07/02/19 07/02/19 02:00 02:30 02:45 Temperature Pulse Rate 120 H 120 H Pulse Rate [ Bilateral] Pulse Rate [ 108 H From Monitor] Respiratory 19 20 Rate Respiratory Rate [Bilateral ] Blood Pressure 123/80 160/85 O2 Sat by Pulse 96 92 93 Oximetry 07/02/19 07/02/19 07/02/19 03:00 03:30 03:41 Temperature 99.4 F Pulse Rate 110 H 100 H Pulse Rate [ Bilateral] Pulse Rate [ From Monitor] Respiratory 22 17 Rate Respiratory Rate [Bilateral ] Blood Pressure 163/76 163/76 O2 Sat by Pulse Oximetry 07/02/19 07/02/19 07/02/19 04:00 04:30 04:42 Temperature Pulse Rate 104 H 96 H 102 H Pulse Rate [ Bilateral] Pulse Rate [ From Monitor] Respiratory 22 18 Rate Respiratory Rate [Bilateral ] Blood Pressure 139/77 139/77 139/77 O2 Sat by Pulse 93 94 Oximetry 07/02/19 07/02/19 07/02/19 05:00 05:03 05:30 Temperature Pulse Rate 103 H 98 H 98 H Pulse Rate [ Bilateral] Pulse Rate [ 108 H From Monitor] Respiratory 19 20 17 Rate Respiratory Rate [Bilateral ] Blood Pressure 152/92 152/92 152/92 O2 Sat by Pulse 93 98 Oximetry 07/02/19 07/02/19 07/02/19 06:00 06:30 07:00 Temperature Pulse Rate 104 H 96 H 99 H Pulse Rate [ Bilateral] Pulse Rate [ From Monitor] Respiratory 19 17 16 Rate Respiratory Rate [Bilateral ] Blood Pressure 155/95 152/92 161/86 O2 Sat by Pulse 97 97 99 Oximetry 07/02/19 07/02/19 07/02/19 07:30 07:49 07:55 Temperature Pulse Rate 92 H 101 H 75 Pulse Rate [ 96 H Bilateral] Pulse Rate [ From Monitor] Respiratory 15 12 Rate Respiratory 20 Rate [Bilateral ] Blood Pressure 161/86 161/86 125/62 O2 Sat by Pulse 94 99 97 Oximetry 07/02/19 07/02/19 07/02/19 08:00 08:30 09:00 Temperature Pulse Rate 107 H 103 H 105 H Pulse Rate [ Bilateral] Pulse Rate [ From Monitor] Respiratory 23 22 22 Rate Respiratory Rate [Bilateral ] Blood Pressure 161/86 157/82 158/71 O2 Sat by Pulse 96 92 96 Oximetry 07/02/19 11:00 Temperature Pulse Rate 73 Pulse Rate [ Bilateral] Pulse Rate [ From Monitor] Respiratory 12 Rate Respiratory Rate [Bilateral ] Blood Pressure 107/53 O2 Sat by Pulse 98 Oximetry Constitutional: no acute distress, other (elderly looking obese CF, normocephalic on MVS without signidficant dyssynchrony) Eyes: non-icteric ENT: oropharynx moist, other (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) Neck: supple, no lymphadenopathy, no JVD Effort: mildly labored Ascultation: Bilateral: diminished breath sounds, rhonchi Percussion: Bilateral: not dull Cardiovascular: regular rate and rhythm Gastrointestinal: normoactive bowel sounds, soft, non-tender, non-distended Integumentary: normal Extremities: no cyanosis, no edema, pulses normal, no ischemia or petechiae Neurologic: non-focal exam (grossly), pupils equal and round, motor strength normal and Psychiatric: mood appropriate, affect normal CBC and BMP: 07/01/19 04:30 07/06/19 04:51 ABG, PT/INR, D-dimer: ABG ABG pH 7.464 pH Units (7.350-7.450) H 06/28/19 12:20 ABG pCO2 47.6 mm Hg 06/28/19 12:20 ABG pO2 64.2 mm Hg (80.0-90.0) L 06/28/19 12:20 ABG O2 Saturation 93.7 % (95.0-99.0) L 06/28/19 12:20 PT/INR, D-dimer PT 13.0 Sec. (12.2-14.9) 06/11/19 18:03 INR 0.97 (0.87-1.13) 06/11/19 18:03 D-Dimer 1177.30 ng/mlDDU (0-234) H 06/19/19 14:14 Abnormal lab findings: Abnormal Labs 06/11/19 06/11/19 06/11/19 18:03 18:03 18:03 WBC Hgb MCH 25 L RDW 19.4 H Plt Count 124 L [place] % (Auto) 10.3 H Lymph # 1.1 L Seg Neutrophils % 74.4 H Seg Neuts % (Manual) Lymphocytes % (Manual) Seg Neutrophils # Man Lymphocytes # (Manual) Monocytes # (Manual) D-Dimer ABG pH ABG pO2 ABG HCO3 ABG O2 Saturation ABG Base Excess ABG Hemoglobin Oxyhemoglobin Sodium 146 H Potassium Chloride Carbon Dioxide BUN 21 H Creatinine 0.4 L Glucose POC Glucose Calcium Magnesium 2.70 H Lactate Dehydrogenase CK-MB (CK-2) CK-MB (CK-2) Rel Index Albumin 3.5 L Ur Specific [place] Urine WBC (Auto) Digoxin Salicylates 1.0 L Acetaminophen 06/11/19 06/11/19 06/11/19 18:03 18:59 23:22 WBC Hgb MCH RDW Plt Count [place] % (Auto) Lymph # Seg Neutrophils % Seg Neuts % (Manual) Lymphocytes % (Manual) Seg Neutrophils # Man Lymphocytes # (Manual) Monocytes # (Manual) D-Dimer ABG pH 7.340 L ABG pO2 76.0 L ABG HCO3 34.6 H ABG O2 Saturation ABG Base Excess 7.1 H ABG Hemoglobin 10.9 L Oxyhemoglobin 91.6 L Sodium Potassium Chloride Carbon Dioxide BUN Creatinine Glucose POC Glucose Calcium Magnesium Lactate Dehydrogenase CK-MB (CK-2) 5.5 H CK-MB (CK-2) Rel Index 5.5 H Albumin Ur Specific [place] Urine WBC (Auto) Digoxin Salicylates Acetaminophen < 5.0 L 06/12/19 06/12/19 06/12/19 00:29 02:04 04:20 WBC Hgb MCH RDW Plt Count [place] % (Auto) Lymph # Seg Neutrophils % Seg Neuts % (Manual) Lymphocytes % (Manual) Seg Neutrophils # Man Lymphocytes # (Manual) Monocytes # (Manual) D-Dimer ABG pH 7.313 L ABG pO2 75.3 L ABG HCO3 29.9 H ABG O2 Saturation 94.3 L ABG Base Excess ABG Hemoglobin 10.8 L Oxyhemoglobin 92.0 L Sodium Potassium Chloride Carbon Dioxide BUN Creatinine Glucose POC Glucose 107 H Calcium Magnesium Lactate Dehydrogenase CK-MB (CK-2) CK-MB (CK-2) Rel Index Albumin Ur Specific [place] Urine WBC (Auto) 30.0 H Digoxin Salicylates Acetaminophen 06/12/19 06/12/19 06/12/19 05:09 05:09 05:09 WBC Hgb MCH 25 L RDW 19.4 H Plt Count 114 L [place] % (Auto) Lymph # Seg Neutrophils % Seg Neuts % (Manual) 91.0 H Lymphocytes % (Manual) 7.0 L Seg Neutrophils # Man Lymphocytes # (Manual) 0.4 L Monocytes # (Manual) D-Dimer ABG pH ABG pO2 ABG HCO3 ABG O2 Saturation ABG Base Excess ABG Hemoglobin Oxyhemoglobin Sodium 147 H Potassium Chloride 107.4 H Carbon Dioxide BUN 19 H Creatinine 0.4 L Glucose 110 H POC Glucose Calcium 8.2 L Magnesium Lactate Dehydrogenase CK-MB (CK-2) CK-MB (CK-2) Rel Index 5.4 H Albumin Ur Specific [place] Urine WBC (Auto) Digoxin Salicylates Acetaminophen 06/12/19 06/12/19 06/13/19 06:42 23:21 04:14 WBC Hgb MCH RDW Plt Count [place] % (Auto) Lymph # Seg Neutrophils % Seg Neuts % (Manual) Lymphocytes % (Manual) Seg Neutrophils # Man Lymphocytes # (Manual) Monocytes # (Manual) D-Dimer ABG pH ABG pO2 62.6 L ABG HCO3 29.6 H ABG O2 Saturation 91.0 L ABG Base Excess ABG Hemoglobin 10.3 L Oxyhemoglobin 89.0 L Sodium Potassium Chloride Carbon Dioxide BUN Creatinine Glucose POC Glucose 108 H 106 H Calcium Magnesium Lactate Dehydrogenase CK-MB (CK-2) CK-MB (CK-2) Rel Index Albumin Ur Specific [place] Urine WBC (Auto) Digoxin Salicylates Acetaminophen 06/13/19 06/13/19 06/13/19 04:54 04:54 12:20 WBC Hgb MCH 25 L RDW 19.2 H Plt Count 119 L [place] % (Auto) Lymph # Seg Neutrophils % Seg Neuts % (Manual) 95.0 H Lymphocytes % (Manual) 2.0 L Seg Neutrophils # Man 9.1 H Lymphocytes # (Manual) 0.2 L Monocytes # (Manual) D-Dimer ABG pH ABG pO2 ABG HCO3 ABG O2 Saturation ABG Base Excess ABG Hemoglobin Oxyhemoglobin Sodium 149 H Potassium Chloride 111.4 H Carbon Dioxide BUN 26 H Creatinine 0.5 L Glucose 107 H POC Glucose 125 H Calcium Magnesium Lactate Dehydrogenase CK-MB (CK-2) CK-MB (CK-2) Rel Index Albumin Ur Specific [place] Urine WBC (Auto) Digoxin Salicylates Acetaminophen 06/13/19 06/14/19 06/14/19 17:25 03:44 04:55 WBC Hgb MCH RDW Plt Count [place] % (Auto) Lymph # Seg Neutrophils % Seg Neuts % (Manual) Lymphocytes % (Manual) Seg Neutrophils # Man Lymphocytes # (Manual) Monocytes # (Manual) D-Dimer ABG pH ABG pO2 58.9 L ABG HCO3 29.5 H ABG O2 Saturation 88.7 L ABG Base Excess ABG Hemoglobin 10.2 L Oxyhemoglobin 86.7 L Sodium 150 H Potassium Chloride 110.4 H Carbon Dioxide BUN 20 H Creatinine 0.4 L Glucose 105 H POC Glucose 128 H Calcium Magnesium Lactate Dehydrogenase CK-MB (CK-2) CK-MB (CK-2) Rel Index Albumin Ur Specific [place] Urine WBC (Auto) Digoxin Salicylates Acetaminophen 06/14/19 06/14/19 06/14/19 05:37 11:58 21:00 WBC Hgb MCH RDW Plt Count [place] % (Auto) Lymph # Seg Neutrophils % Seg Neuts % (Manual) Lymphocytes % (Manual) Seg Neutrophils # Man Lymphocytes # (Manual) Monocytes # (Manual) D-Dimer ABG pH 7.321 L ABG pO2 60.0 L ABG HCO3 31.4 H ABG O2 Saturation 87.3 L ABG Base Excess 4.1 H ABG Hemoglobin 10.6 L Oxyhemoglobin 84.8 L Sodium Potassium Chloride Carbon Dioxide BUN Creatinine Glucose POC Glucose 111 H 116 H Calcium Magnesium Lactate Dehydrogenase CK-MB (CK-2) CK-MB (CK-2) Rel Index Albumin Ur Specific [place] Urine WBC (Auto) Digoxin Salicylates Acetaminophen 06/15/19 06/15/19 06/15/19 00:22 03:25 05:08 WBC Hgb MCH RDW Plt Count [place] % (Auto) Lymph # Seg Neutrophils % Seg Neuts % (Manual) Lymphocytes % (Manual) Seg Neutrophils # Man Lymphocytes # (Manual) Monocytes # (Manual) D-Dimer ABG pH 7.317 L ABG pO2 ABG HCO3 31.5 H ABG O2 Saturation ABG Base Excess 4.1 H ABG Hemoglobin 10.4 L Oxyhemoglobin 94.1 L Sodium Potassium Chloride Carbon Dioxide 31 H BUN 23 H Creatinine 0.3 L Glucose 120 H POC Glucose 108 H Calcium Magnesium Lactate Dehydrogenase CK-MB (CK-2) CK-MB (CK-2) Rel Index Albumin Ur Specific [place] Urine WBC (Auto) Digoxin Salicylates Acetaminophen 06/15/19 06/15/19 06/15/19 05:24 11:41 17:38 WBC Hgb MCH RDW Plt Count [place] % (Auto) Lymph # Seg Neutrophils % Seg Neuts % (Manual) Lymphocytes % (Manual) Seg Neutrophils # Man Lymphocytes # (Manual) Monocytes # (Manual) D-Dimer ABG pH ABG pO2 ABG HCO3 ABG O2 Saturation ABG Base Excess ABG Hemoglobin Oxyhemoglobin Sodium Potassium Chloride Carbon Dioxide BUN Creatinine Glucose POC Glucose 111 H 154 H 115 H Calcium Magnesium Lactate Dehydrogenase CK-MB (CK-2) CK-MB (CK-2) Rel Index Albumin Ur Specific [place] Urine WBC (Auto) Digoxin Salicylates Acetaminophen 06/15/19 06/16/19 06/16/19 23:31 03:40 05:18 WBC Hgb MCH RDW Plt Count [place] % (Auto) Lymph # Seg Neutrophils % Seg Neuts % (Manual) Lymphocytes % (Manual) Seg Neutrophils # Man Lymphocytes # (Manual) Monocytes # (Manual) D-Dimer ABG pH 7.313 L ABG pO2 96.4 H ABG HCO3 35.2 H ABG O2 Saturation ABG Base Excess 7.2 H ABG Hemoglobin 10.5 L Oxyhemoglobin 94.9 L Sodium Potassium Chloride Carbon Dioxide BUN Creatinine Glucose POC Glucose 161 H 158 H Calcium Magnesium Lactate Dehydrogenase CK-MB (CK-2) CK-MB (CK-2) Rel Index Albumin Ur Specific [place] Urine WBC (Auto) Digoxin Salicylates Acetaminophen 06/16/19 06/16/19 06/16/19 05:45 05:45 12:06 WBC 12.1 H Hgb MCH 25 L RDW 18.7 H Plt Count 93 L [place] % (Auto) Lymph # Seg Neutrophils % Seg Neuts % (Manual) 97.0 H Lymphocytes % (Manual) 0 L Seg Neutrophils # Man 11.7 H Lymphocytes # (Manual) 0.0 L Monocytes # (Manual) D-Dimer ABG pH ABG pO2 ABG HCO3 ABG O2 Saturation ABG Base Excess ABG Hemoglobin Oxyhemoglobin Sodium Potassium Chloride Carbon Dioxide 33 H BUN 25 H Creatinine 0.3 L Glucose 165 H POC Glucose 178 H Calcium Magnesium Lactate Dehydrogenase CK-MB (CK-2) CK-MB (CK-2) Rel Index Albumin Ur Specific [place] Urine WBC (Auto) Digoxin Salicylates Acetaminophen 06/16/19 06/16/19 06/17/19 17:55 23:42 03:35 WBC Hgb MCH RDW Plt Count [place] % (Auto) Lymph # Seg Neutrophils % Seg Neuts % (Manual) Lymphocytes % (Manual) Seg Neutrophils # Man Lymphocytes # (Manual) Monocytes # (Manual) D-Dimer ABG pH ABG pO2 73.2 L ABG HCO3 35.2 H ABG O2 Saturation 94.5 L ABG Base Excess 8.8 H ABG Hemoglobin 10.7 L Oxyhemoglobin 92.6 L Sodium Potassium Chloride Carbon Dioxide BUN Creatinine Glucose POC Glucose 180 H 160 H Calcium Magnesium Lactate Dehydrogenase CK-MB (CK-2) CK-MB (CK-2) Rel Index Albumin Ur Specific [place] Urine WBC (Auto) Digoxin Salicylates Acetaminophen 06/17/19 06/17/19 06/17/19 04:57 09:45 11:59 WBC 11.7 H Hgb MCH 25 L RDW 18.2 H Plt Count 79 L [place] % (Auto) Lymph # Seg Neutrophils % Seg Neuts % (Manual) 96.0 H Lymphocytes % (Manual) 3.0 L Seg Neutrophils # Man 11.2 H Lymphocytes # (Manual) 0.4 L Monocytes # (Manual) D-Dimer ABG pH ABG pO2 ABG HCO3 ABG O2 Saturation ABG Base Excess ABG Hemoglobin Oxyhemoglobin Sodium Potassium Chloride Carbon Dioxide 34 H BUN 31 H Creatinine 0.3 L Glucose 153 H POC Glucose 163 H Calcium Magnesium Lactate Dehydrogenase CK-MB (CK-2) CK-MB (CK-2) Rel Index Albumin Ur Specific [place] Urine WBC (Auto) Digoxin Salicylates Acetaminophen 06/17/19 06/17/19 06/17/19 12:34 17:33 23:39 WBC Hgb MCH RDW Plt Count [place] % (Auto) Lymph # Seg Neutrophils % Seg Neuts % (Manual) Lymphocytes % (Manual) Seg Neutrophils # Man Lymphocytes # (Manual) Monocytes # (Manual) D-Dimer ABG pH ABG pO2 ABG HCO3 ABG O2 Saturation ABG Base Excess ABG Hemoglobin Oxyhemoglobin Sodium Potassium Chloride Carbon Dioxide BUN Creatinine Glucose POC Glucose 171 H 186 H 161 H Calcium Magnesium Lactate Dehydrogenase CK-MB (CK-2) CK-MB (CK-2) Rel Index Albumin Ur Specific [place] Urine WBC (Auto) Digoxin Salicylates Acetaminophen 06/18/19 06/18/19 06/18/19 04:25 05:23 05:23 WBC 13.2 H Hgb MCH 25 L RDW 18.3 H Plt Count 81 L [place] % (Auto) Lymph # Seg Neutrophils % Seg Neuts % (Manual) 96.0 H Lymphocytes % (Manual) 4.0 L Seg Neutrophils # Man 12.7 H Lymphocytes # (Manual) 0.5 L Monocytes # (Manual) D-Dimer ABG pH ABG pO2 72.9 L ABG HCO3 33.8 H ABG O2 Saturation 94.6 L ABG Base Excess 7.3 H ABG Hemoglobin 11.1 L Oxyhemoglobin 92.8 L Sodium Potassium Chloride Carbon Dioxide 34 H BUN 36 H Creatinine 0.3 L Glucose 162 H POC Glucose Calcium Magnesium Lactate Dehydrogenase CK-MB (CK-2) CK-MB (CK-2) Rel Index Albumin Ur Specific [place] Urine WBC (Auto) Digoxin Salicylates Acetaminophen 06/18/19 06/18/19 06/18/19 05:37 12:26 18:17 WBC Hgb MCH RDW Plt Count [place] % (Auto) Lymph # Seg Neutrophils % Seg Neuts % (Manual) Lymphocytes % (Manual) Seg Neutrophils # Man Lymphocytes # (Manual) Monocytes # (Manual) D-Dimer ABG pH ABG pO2 ABG HCO3 ABG O2 Saturation ABG Base Excess ABG Hemoglobin Oxyhemoglobin Sodium Potassium Chloride Carbon Dioxide BUN Creatinine Glucose POC Glucose 177 H 156 H 134 H Calcium Magnesium Lactate Dehydrogenase CK-MB (CK-2) CK-MB (CK-2) Rel Index Albumin Ur Specific [place] Urine WBC (Auto) Digoxin Salicylates Acetaminophen 06/18/19 06/19/19 06/19/19 23:51 05:58 12:12 WBC Hgb MCH RDW Plt Count [place] % (Auto) Lymph # Seg Neutrophils % Seg Neuts % (Manual) Lymphocytes % (Manual) Seg Neutrophils # Man Lymphocytes # (Manual) Monocytes # (Manual) D-Dimer ABG pH ABG pO2 ABG HCO3 ABG O2 Saturation ABG Base Excess ABG Hemoglobin Oxyhemoglobin Sodium Potassium Chloride Carbon Dioxide BUN Creatinine Glucose POC Glucose 153 H 143 H 186 H Calcium Magnesium Lactate Dehydrogenase CK-MB (CK-2) CK-MB (CK-2) Rel Index Albumin Ur Specific [place] Urine WBC (Auto) Digoxin Salicylates Acetaminophen 06/19/19 06/19/19 06/19/19 12:40 14:14 14:14 WBC Hgb MCH RDW Plt Count [place] % (Auto) Lymph # Seg Neutrophils % Seg Neuts % (Manual) Lymphocytes % (Manual) Seg Neutrophils # Man Lymphocytes # (Manual) Monocytes # (Manual) D-Dimer 1177.30 H ABG pH ABG pO2 ABG HCO3 ABG O2 Saturation ABG Base Excess ABG Hemoglobin Oxyhemoglobin Sodium Potassium Chloride Carbon Dioxide BUN Creatinine Glucose POC Glucose Calcium Magnesium Lactate Dehydrogenase 290 H CK-MB (CK-2) CK-MB (CK-2) Rel Index Albumin Ur Specific [place] 1.032 H Urine WBC (Auto) Digoxin Salicylates Acetaminophen 06/19/19 06/19/19 06/19/19 16:40 17:00 23:50 WBC Hgb MCH RDW Plt Count [place] % (Auto) Lymph # Seg Neutrophils % Seg Neuts % (Manual) Lymphocytes % (Manual) Seg Neutrophils # Man Lymphocytes # (Manual) Monocytes # (Manual) D-Dimer ABG pH ABG pO2 54.2 L ABG HCO3 32.1 H ABG O2 Saturation 87.8 L ABG Base Excess 6.3 H ABG Hemoglobin 11.2 L Oxyhemoglobin 85.9 L Sodium Potassium Chloride Carbon Dioxide BUN Creatinine Glucose POC Glucose 137 H 148 H Calcium Magnesium Lactate Dehydrogenase CK-MB (CK-2) CK-MB (CK-2) Rel Index Albumin Ur Specific [place] Urine WBC (Auto) Digoxin Salicylates Acetaminophen 06/20/19 06/20/19 06/20/19 05:14 05:30 05:40 WBC 16.4 H Hgb MCH 25 L RDW 18.3 H Plt Count 79 L [place] % (Auto) Lymph # Seg Neutrophils % Seg Neuts % (Manual) Lymphocytes % (Manual) Seg Neutrophils # Man Lymphocytes # (Manual) Monocytes # (Manual) D-Dimer ABG pH ABG pO2 63.4 L ABG HCO3 32.9 H ABG O2 Saturation 91.8 L ABG Base Excess 6.2 H ABG Hemoglobin 10.4 L Oxyhemoglobin 89.7 L Sodium Potassium Chloride Carbon Dioxide BUN Creatinine Glucose POC Glucose 164 H Calcium Magnesium Lactate Dehydrogenase CK-MB (CK-2) CK-MB (CK-2) Rel Index Albumin Ur Specific [place] Urine WBC (Auto) Digoxin Salicylates Acetaminophen 06/20/19 06/20/19 06/20/19 05:40 12:35 18:32 WBC Hgb MCH RDW Plt Count [place] % (Auto) Lymph # Seg Neutrophils % Seg Neuts % (Manual) Lymphocytes % (Manual) Seg Neutrophils # Man Lymphocytes # (Manual) Monocytes # (Manual) D-Dimer ABG pH ABG pO2 ABG HCO3 ABG O2 Saturation ABG Base Excess ABG Hemoglobin Oxyhemoglobin Sodium Potassium Chloride Carbon Dioxide 31 H BUN 25 H Creatinine 0.3 L Glucose 150 H POC Glucose 162 H 159 H Calcium Magnesium Lactate Dehydrogenase CK-MB (CK-2) CK-MB (CK-2) Rel Index Albumin Ur Specific [place] Urine WBC (Auto) Digoxin Salicylates Acetaminophen 06/21/19 06/21/19 06/21/19 00:12 04:58 04:58 WBC 13.9 H Hgb 9.7 L MCH 25 L RDW 17.9 H Plt Count 85 L [place] % (Auto) Lymph # Seg Neutrophils % Seg Neuts % (Manual) Lymphocytes % (Manual) Seg Neutrophils # Man Lymphocytes # (Manual) Monocytes # (Manual) D-Dimer ABG pH ABG pO2 ABG HCO3 ABG O2 Saturation ABG Base Excess ABG Hemoglobin Oxyhemoglobin Sodium Potassium Chloride Carbon Dioxide 31 H BUN 23 H Creatinine 0.3 L Glucose 142 H POC Glucose 144 H Calcium Magnesium Lactate Dehydrogenase CK-MB (CK-2) CK-MB (CK-2) Rel Index Albumin Ur Specific [place] Urine WBC (Auto) Digoxin Salicylates Acetaminophen 06/21/19 06/21/19 06/21/19 05:42 12:43 23:17 WBC Hgb MCH RDW Plt Count [place] % (Auto) Lymph # Seg Neutrophils % Seg Neuts % (Manual) Lymphocytes % (Manual) Seg Neutrophils # Man Lymphocytes # (Manual) Monocytes # (Manual) D-Dimer ABG pH ABG pO2 ABG HCO3 ABG O2 Saturation ABG Base Excess ABG Hemoglobin Oxyhemoglobin Sodium Potassium Chloride Carbon Dioxide BUN Creatinine Glucose POC Glucose 137 H 118 H 141 H Calcium Magnesium Lactate Dehydrogenase CK-MB (CK-2) CK-MB (CK-2) Rel Index Albumin Ur Specific [place] Urine WBC (Auto) Digoxin Salicylates Acetaminophen 06/22/19 06/22/19 06/22/19 05:28 12:11 18:27 WBC Hgb MCH RDW Plt Count [place] % (Auto) Lymph # Seg Neutrophils % Seg Neuts % (Manual) Lymphocytes % (Manual) Seg Neutrophils # Man Lymphocytes # (Manual) Monocytes # (Manual) D-Dimer ABG pH ABG pO2 ABG HCO3 ABG O2 Saturation ABG Base Excess ABG Hemoglobin Oxyhemoglobin Sodium Potassium Chloride Carbon Dioxide BUN Creatinine Glucose POC Glucose 144 H 138 H 169 H Calcium Magnesium Lactate Dehydrogenase CK-MB (CK-2) CK-MB (CK-2) Rel Index Albumin Ur Specific [place] Urine WBC (Auto) Digoxin Salicylates Acetaminophen 06/23/19 06/23/19 06/23/19 00:12 05:05 05:05 WBC 11.5 H Hgb MCH 25 L RDW 17.5 H Plt Count 98 L [place] % (Auto) Lymph # Seg Neutrophils % Seg Neuts % (Manual) 88.0 H Lymphocytes % (Manual) 4.0 L Seg Neutrophils # Man 10.1 H Lymphocytes # (Manual) 0.5 L Monocytes # (Manual) D-Dimer ABG pH ABG pO2 ABG HCO3 ABG O2 Saturation ABG Base Excess ABG Hemoglobin Oxyhemoglobin Sodium 133 L Potassium 5.3 H Chloride 95.5 L Carbon Dioxide BUN 24 H Creatinine 0.3 L Glucose 168 H POC Glucose 154 H Calcium Magnesium 2.60 H Lactate Dehydrogenase CK-MB (CK-2) CK-MB (CK-2) Rel Index Albumin Ur Specific [place] Urine WBC (Auto) Digoxin Salicylates Acetaminophen 06/23/19 06/23/19 06/23/19 05:15 08:50 12:00 WBC Hgb MCH RDW Plt Count [place] % (Auto) Lymph # Seg Neutrophils % Seg Neuts % (Manual) Lymphocytes % (Manual) Seg Neutrophils # Man Lymphocytes # (Manual) Monocytes # (Manual) D-Dimer ABG pH ABG pO2 56.9 L ABG HCO3 33.2 H ABG O2 Saturation 88.0 L ABG Base Excess 7.0 H ABG Hemoglobin 9.9 L Oxyhemoglobin 86.4 L Sodium Potassium Chloride Carbon Dioxide BUN Creatinine Glucose POC Glucose 174 H 168 H Calcium Magnesium Lactate Dehydrogenase CK-MB (CK-2) CK-MB (CK-2) Rel Index Albumin Ur Specific [place] Urine WBC (Auto) Digoxin Salicylates Acetaminophen 06/23/19 06/23/19 06/24/19 17:54 23:55 04:41 WBC Hgb MCH RDW Plt Count [place] % (Auto) Lymph # Seg Neutrophils % Seg Neuts % (Manual) Lymphocytes % (Manual) Seg Neutrophils # Man Lymphocytes # (Manual) Monocytes # (Manual) D-Dimer ABG pH ABG pO2 ABG HCO3 ABG O2 Saturation ABG Base Excess ABG Hemoglobin Oxyhemoglobin Sodium Potassium Chloride Carbon Dioxide BUN Creatinine Glucose POC Glucose 146 H 145 H Calcium Magnesium Lactate Dehydrogenase CK-MB (CK-2) CK-MB (CK-2) Rel Index Albumin Ur Specific [place] Urine WBC (Auto) Digoxin 0.5 L Salicylates Acetaminophen 06/24/19 06/24/19 06/24/19 05:53 12:01 16:55 WBC Hgb MCH RDW Plt Count [place] % (Auto) Lymph # Seg Neutrophils % Seg Neuts % (Manual) Lymphocytes % (Manual) Seg Neutrophils # Man Lymphocytes # (Manual) Monocytes # (Manual) D-Dimer ABG pH ABG pO2 ABG HCO3 ABG O2 Saturation ABG Base Excess ABG Hemoglobin Oxyhemoglobin Sodium Potassium Chloride Carbon Dioxide BUN Creatinine Glucose POC Glucose 184 H 178 H 152 H Calcium Magnesium Lactate Dehydrogenase CK-MB (CK-2) CK-MB (CK-2) Rel Index Albumin Ur Specific [place] Urine WBC (Auto) Digoxin Salicylates Acetaminophen 06/25/19 06/25/19 06/25/19 00:10 04:37 04:38 WBC 17.9 H Hgb MCH 25 L RDW 18.3 H Plt Count 124 L [place] % (Auto) Lymph # Seg Neutrophils % Seg Neuts % (Manual) 94.0 H Lymphocytes % (Manual) 1.0 L Seg Neutrophils # Man 16.8 H Lymphocytes # (Manual) 0.2 L Monocytes # (Manual) 0.9 H D-Dimer ABG pH ABG pO2 62.7 L ABG HCO3 33.0 H ABG O2 Saturation 91.8 L ABG Base Excess 7.8 H ABG Hemoglobin 10.0 L Oxyhemoglobin 90.2 L Sodium Potassium Chloride Carbon Dioxide BUN Creatinine Glucose POC Glucose 145 H Calcium Magnesium Lactate Dehydrogenase CK-MB (CK-2) CK-MB (CK-2) Rel Index Albumin Ur Specific [place] Urine WBC (Auto) Digoxin Salicylates Acetaminophen 06/25/19 06/25/19 06/25/19 04:38 05:40 12:45 WBC Hgb MCH RDW Plt Count [place] % (Auto) Lymph # Seg Neutrophils % Seg Neuts % (Manual) Lymphocytes % (Manual) Seg Neutrophils # Man Lymphocytes # (Manual) Monocytes # (Manual) D-Dimer ABG pH ABG pO2 ABG HCO3 ABG O2 Saturation ABG Base Excess ABG Hemoglobin Oxyhemoglobin Sodium Potassium Chloride 95.4 L Carbon Dioxide 31 H BUN 22 H Creatinine 0.3 L Glucose 126 H POC Glucose 128 H 169 H Calcium Magnesium Lactate Dehydrogenase CK-MB (CK-2) CK-MB (CK-2) Rel Index Albumin Ur Specific [place] Urine WBC (Auto) Digoxin Salicylates Acetaminophen 06/25/19 06/26/19 06/26/19 16:57 00:30 05:22 WBC Hgb MCH RDW Plt Count [place] % (Auto) Lymph # Seg Neutrophils % Seg Neuts % (Manual) Lymphocytes % (Manual) Seg Neutrophils # Man Lymphocytes # (Manual) Monocytes # (Manual) D-Dimer ABG pH ABG pO2 ABG HCO3 ABG O2 Saturation ABG Base Excess ABG Hemoglobin Oxyhemoglobin Sodium Potassium Chloride Carbon Dioxide BUN Creatinine Glucose POC Glucose 130 H 167 H 155 H Calcium Magnesium Lactate Dehydrogenase CK-MB (CK-2) CK-MB (CK-2) Rel Index Albumin Ur Specific [place] Urine WBC (Auto) Digoxin Salicylates Acetaminophen 06/26/19 06/26/19 06/27/19 12:02 23:57 05:54 WBC Hgb MCH RDW Plt Count [place] % (Auto) Lymph # Seg Neutrophils % Seg Neuts % (Manual) Lymphocytes % (Manual) Seg Neutrophils # Man Lymphocytes # (Manual) Monocytes # (Manual) D-Dimer ABG pH ABG pO2 ABG HCO3 ABG O2 Saturation ABG Base Excess ABG Hemoglobin Oxyhemoglobin Sodium Potassium Chloride Carbon Dioxide BUN Creatinine Glucose POC Glucose 130 H 155 H 152 H Calcium Magnesium Lactate Dehydrogenase CK-MB (CK-2) CK-MB (CK-2) Rel Index Albumin Ur Specific [place] Urine WBC (Auto) Digoxin Salicylates Acetaminophen 06/27/19 06/27/19 06/27/19 12:09 13:41 13:41 WBC 15.0 H Hgb 10.0 L MCH 25 L RDW 17.9 H Plt Count 114 L [place] % (Auto) Lymph # Seg Neutrophils % Seg Neuts % (Manual) 98.0 H Lymphocytes % (Manual) 0 L Seg Neutrophils # Man 14.7 H Lymphocytes # (Manual) 0.0 L Monocytes # (Manual) D-Dimer ABG pH ABG pO2 ABG HCO3 ABG O2 Saturation ABG Base Excess ABG Hemoglobin Oxyhemoglobin Sodium 135 L Potassium Chloride 96.5 L Carbon Dioxide BUN 21 H Creatinine 0.2 L Glucose 161 H POC Glucose 150 H Calcium Magnesium Lactate Dehydrogenase CK-MB (CK-2) CK-MB (CK-2) Rel Index Albumin Ur Specific [place] Urine WBC (Auto) Digoxin Salicylates Acetaminophen 06/27/19 06/28/19 06/28/19 18:03 00:22 00:58 WBC 16.2 H Hgb MCH 25 L RDW 18.2 H Plt Count 130 L [place] % (Auto) Lymph # Seg Neutrophils % Seg Neuts % (Manual) 98.0 H Lymphocytes % (Manual) 0 L Seg Neutrophils # Man 15.9 H Lymphocytes # (Manual) 0.0 L Monocytes # (Manual) D-Dimer ABG pH ABG pO2 ABG HCO3 ABG O2 Saturation ABG Base Excess ABG Hemoglobin Oxyhemoglobin Sodium Potassium Chloride Carbon Dioxide BUN Creatinine Glucose POC Glucose 156 H 150 H Calcium Magnesium Lactate Dehydrogenase CK-MB (CK-2) CK-MB (CK-2) Rel Index Albumin Ur Specific [place] Urine WBC (Auto) Digoxin Salicylates Acetaminophen 06/28/19 06/28/19 06/28/19 00:58 05:19 12:14 WBC Hgb MCH RDW Plt Count [place] % (Auto) Lymph # Seg Neutrophils % Seg Neuts % (Manual) Lymphocytes % (Manual) Seg Neutrophils # Man Lymphocytes # (Manual) Monocytes # (Manual) D-Dimer ABG pH ABG pO2 ABG HCO3 ABG O2 Saturation ABG Base Excess ABG Hemoglobin Oxyhemoglobin Sodium Potassium Chloride 96.5 L Carbon Dioxide 32 H BUN 21 H Creatinine 0.2 L Glucose 140 H POC Glucose 122 H 137 H Calcium Magnesium Lactate Dehydrogenase CK-MB (CK-2) CK-MB (CK-2) Rel Index Albumin Ur Specific [place] Urine WBC (Auto) Digoxin Salicylates Acetaminophen 06/28/19 06/28/19 06/29/19 12:20 17:06 00:20 WBC Hgb MCH RDW Plt Count [place] % (Auto) Lymph # Seg Neutrophils % Seg Neuts % (Manual) Lymphocytes % (Manual) Seg Neutrophils # Man Lymphocytes # (Manual) Monocytes # (Manual) D-Dimer ABG pH 7.464 H ABG pO2 64.2 L ABG HCO3 33.4 H ABG O2 Saturation 93.7 L ABG Base Excess 8.6 H ABG Hemoglobin 11.2 L Oxyhemoglobin 92.0 L Sodium Potassium Chloride Carbon Dioxide BUN Creatinine Glucose POC Glucose 154 H 156 H Calcium Magnesium Lactate Dehydrogenase CK-MB (CK-2) CK-MB (CK-2) Rel Index Albumin Ur Specific [place] Urine WBC (Auto) Digoxin Salicylates Acetaminophen 06/29/19 06/29/19 06/29/19 05:10 05:31 05:31 WBC 14.3 H Hgb MCH 25 L RDW 18.6 H Plt Count 122 L [place] % (Auto) Lymph # Seg Neutrophils % Seg Neuts % (Manual) 96.0 H Lymphocytes % (Manual) 1.0 L Seg Neutrophils # Man 13.7 H Lymphocytes # (Manual) 0.1 L Monocytes # (Manual) D-Dimer ABG pH ABG pO2 ABG HCO3 ABG O2 Saturation ABG Base Excess ABG Hemoglobin Oxyhemoglobin Sodium Potassium Chloride 95.6 L Carbon Dioxide BUN 26 H Creatinine 0.2 L Glucose 135 H POC Glucose 139 H Calcium Magnesium Lactate Dehydrogenase CK-MB (CK-2) CK-MB (CK-2) Rel Index Albumin Ur Specific [place] Urine WBC (Auto) Digoxin Salicylates Acetaminophen 06/29/19 06/29/19 06/30/19 12:26 18:10 00:41 WBC Hgb MCH RDW Plt Count [place] % (Auto) Lymph # Seg Neutrophils % Seg Neuts % (Manual) Lymphocytes % (Manual) Seg Neutrophils # Man Lymphocytes # (Manual) Monocytes # (Manual) D-Dimer ABG pH ABG pO2 ABG HCO3 ABG O2 Saturation ABG Base Excess ABG Hemoglobin Oxyhemoglobin Sodium Potassium Chloride Carbon Dioxide BUN Creatinine Glucose POC Glucose 144 H 153 H 127 H Calcium Magnesium Lactate Dehydrogenase CK-MB (CK-2) CK-MB (CK-2) Rel Index Albumin Ur Specific [place] Urine WBC (Auto) Digoxin Salicylates Acetaminophen 06/30/19 06/30/19 07/01/19 05:11 11:52 04:30 WBC 13.2 H Hgb MCH 25 L RDW 18.4 H Plt Count 89 L [place] % (Auto) Lymph # Seg Neutrophils % Seg Neuts % (Manual) 95.0 H Lymphocytes % (Manual) 2.0 L Seg Neutrophils # Man 12.5 H Lymphocytes # (Manual) 0.3 L Monocytes # (Manual) D-Dimer ABG pH ABG pO2 ABG HCO3 ABG O2 Saturation ABG Base Excess ABG Hemoglobin Oxyhemoglobin Sodium Potassium Chloride Carbon Dioxide BUN Creatinine Glucose POC Glucose 151 H 136 H Calcium Magnesium Lactate Dehydrogenase CK-MB (CK-2) CK-MB (CK-2) Rel Index Albumin Ur Specific [place] Urine WBC (Auto) Digoxin Salicylates Acetaminophen 07/01/19 07/01/19 04:30 05:57 WBC Hgb MCH RDW Plt Count [place] % (Auto) Lymph # Seg Neutrophils % Seg Neuts % (Manual) Lymphocytes % (Manual) Seg Neutrophils # Man Lymphocytes # (Manual) Monocytes # (Manual) D-Dimer ABG pH ABG pO2 ABG HCO3 ABG O2 Saturation ABG Base Excess ABG Hemoglobin Oxyhemoglobin Sodium Potassium Chloride 96.0 L Carbon Dioxide BUN 24 H Creatinine 0.2 L Glucose 113 H POC Glucose 124 H Calcium Magnesium Lactate Dehydrogenase CK-MB (CK-2) CK-MB (CK-2) Rel Index Albumin Ur Specific [place] Urine WBC (Auto) Digoxin Salicylates Acetaminophen Chest x-ray: image reviewed
--- NOTE | 2019-07-02 12:46 | Progress Note ---
Assessment and Plan Paroxysmal Atrial flutter/afib/MAT currently in sinus rhythm now on amiodarone and diltiazem for suppression. not on anticoagulation secondary to history of melena and anemia. Respiratory failure s/p intubation COPD exacerbation on home oxygen History of NM/Coronary artery disease EF 45-50% by echo 08/2018 [facility]: [employer] of the RCA recommend for medical therapy. She did undergo PCI of the mid LAD using bare metal stent. Recommend: Continue oral Cardizem and Amiodarone as tolerated for paroxysmal atrial flut ter. Otherwise, conservative cardiac management. Subjective Date of service: 07/02/19 Principal diagnosis: Ac and ch hypoxic & hypercapnic resp failure; AE-COPD; Tobacco use disorder Interval history: Stable sinus rhythm on telemetry. No cardiac events reported. Objective Vital Signs Temp Pulse Pulse Pulse Resp Resp BP 07/02/19 11:00 73 12 107/53 07/02/19 09:00 105 H 22 158/71 07/02/19 08:30 103 H 22 157/82 07/02/19 08:00 107 H 23 161/86 07/02/19 07:55 75 12 125/62 07/02/19 07:49 101 H 96 H 20 161/86 07/02/19 07:30 92 H 15 161/86 07/02/19 07:00 99 H 16 161/86 07/02/19 06:30 96 H 17 152/92 07/02/19 06:00 104 H 19 155/95 07/02/19 05:30 98 H 17 152/92 07/02/19 05:03 98 H 108 H 20 152/92 07/02/19 05:00 103 H 19 152/92 07/02/19 04:42 102 H 139/77 07/02/19 04:30 96 H 18 139/77 07/02/19 04:00 104 H 22 139/77 07/02/19 03:41 99.4 F 07/02/19 03:30 100 H 17 163/76 07/02/19 03:00 110 H 22 163/76 07/02/19 02:45 120 H 108 H 20 07/02/19 02:30 160/85 07/02/19 02:00 120 H 19 123/80 07/02/19 01:30 110 H 21 123/80 07/02/19 01:00 110 H 19 123/80 07/02/19 00:30 114 H 16 125/79 07/02/19 00:00 125 H 118 H 21 117/79 07/01/19 23:50 116 H 118 H 20 07/01/19 23:48 120 H 20 117/79 07/01/19 23:45 117 H 117/79 07/01/19 23:30 22 117/79 07/01/19 23:23 98.9 F 07/01/19 23:00 116 H 22 133/91 07/01/19 22:30 121 H 21 133/91 07/01/19 22:00 111 H 20 134/80 07/01/19 21:30 106 H 15 134/80 07/01/19 21:28 82 134/80 07/01/19 21:00 103 H 19 124/79 07/01/19 20:41 101 H 65 23 07/01/19 20:30 101 H 16 124/79 07/01/19 20:28 109 H 20 07/01/19 20:26 102 H 154/118 07/01/19 20:00 97.6 F 78 16 104/55 07/01/19 19:30 66 12 104/55 07/01/19 19:00 68 14 104/55 07/01/19 18:30 63 11 L 104/55 07/01/19 18:00 61 9 L 92/48 07/01/19 17:30 63 10 L 92/48 07/01/19 17:00 65 9 L 92/48 07/01/19 16:30 67 11 L 100/53 07/01/19 16:00 97.4 F L 70 65 11 L 100/53 07/01/19 15:30 61 11 L 99/48 07/01/19 15:00 63 9 L 113/55 07/01/19 14:30 65 10 L 113/55 07/01/19 14:00 68 10 L 151/71 07/01/19 13:42 95 H 151/71 07/01/19 13:30 67 12 94/37 07/01/19 13:00 66 10 L 95/33 Pulse Ox 07/02/19 11:00 98 07/02/19 09:00 96 07/02/19 08:30 92 07/02/19 08:00 96 07/02/19 07:55 97 07/02/19 07:49 99 07/02/19 07:30 94 07/02/19 07:00 99 07/02/19 06:30 97 07/02/19 06:00 97 07/02/19 05:30 98 07/02/19 05:03 93 07/02/19 05:00 07/02/19 04:42 94 07/02/19 04:30 93 07/02/19 04:00 07/02/19 03:41 07/02/19 03:30 07/02/19 03:00 07/02/19 02:45 93 07/02/19 02:30 92 07/02/19 02:00 96 07/02/19 01:30 95 07/02/19 01:00 96 07/02/19 00:30 96 07/02/19 00:00 94 07/01/19 23:50 93 07/01/19 23:48 94 07/01/19 23:45 95 07/01/19 23:30 95 07/01/19 23:23 07/01/19 23:00 95 07/01/19 22:30 94 07/01/19 22:00 94 07/01/19 21:30 96 07/01/19 21:28 07/01/19 21:00 92 07/01/19 20:41 93 07/01/19 20:30 95 07/01/19 20:28 07/01/19 20:26 95 07/01/19 20:00 94 07/01/19 19:30 96 07/01/19 19:00 96 07/01/19 18:30 98 07/01/19 18:00 98 07/01/19 17:30 98 07/01/19 17:00 97 07/01/19 16:30 99 07/01/19 16:00 98 07/01/19 15:30 98 07/01/19 15:00 99 07/01/19 14:30 99 07/01/19 14:00 98 07/01/19 13:42 07/01/19 13:30 99 07/01/19 13:00 98 - Physical Examination General: Other (intubated) Cardiac: Positive: Reg Rate and Rhythm - Allied health notes Allied health notes reviewed: nursing
[2019-07-02 13:35] LABS: ABG Base Excess 6.7 mmol/L (-2.0-3.0); ABG HCO3 32.7 mmol/L (20.0-26.0); ABG Methemoglobin 0.4 % (0.0-1.5); ABG Oxygen Saturation 96.4 % (95.0-99.0); ABG PCO2 55.7 mm Hg; ABG PH 7.387 pH Units (7.350-7.450); ABG PO2 81.5 mm Hg (80.0-90.0)
--- NOTE | 2019-07-02 13:40 | Progress Note ---
Assessment and Plan /Acute hypoxic and hypercapnic on chronic respiratory failure: Required mechanical ventilation> 96 hours Due to acute COPD exacerbation and underlying pneumonia On nebs, steroids, supportive care Extubated today, pulmonary following Continue oxygen saturation greater than 92% with nasal cannula /sepsis/pneumonia/sputum Pseudomonas 06/11/2019; present on admission ID following , treated with cefepime up to 14 days Sputum cultures again positive Pseudomonas on 06/19/2019 Negative for COVID-19 /Hypertension; moderate control Continue current antihypertensives and PRN hydralazine /Paroxysmal A. fib/flutter; RVR On amiodarone, digoxin and Cardizem Closely monitor, cardiology following-digoxin adjusted to 0.125 mg every other day per cardiology Changed amiodarone to 100 mg daily No chronic anticoagulation due to history of GI bleed /History of coronary artery disease/CHF EF 45-50% by echo 08/2018 Low-dose Lasix, continue other cardiac meds /Hypernatremia; resolved monitor sodium levels /History of depression; hold antidepressive medications for now as intubated /Ongoing tobacco use; Will adolescent counselor smoking cessation when patient is more stable /Obesity; BMI 32.2 Patient needs weight reduction when medically stable /Thrombocytopenia; HIT antibody negative --Tube feeding diet; per dietary recommendations --DVT prophylaxis; Lovenox --Full CODE STATUS Restraints in place. Patient is critically ill with poor prognosis Closely monitor the patient and adjust management as needed Follow healthcare economics consultant recommendations The high probability of a clinically significant, sudden or life threatening deterioration of the [respiratory, CVS] system(s) required my full and direct attention, intervention and personal management. The aggregate critical care time was [31] minutes. This time is in addition to time spent performing reported procedures but includes the following: [x] Data Review and interpretation [x] Patient assessment and monitoring of vital signs [x] Documentation [x] Medication orders and management Critical care time 35 minutes Disposition; patient extubated today, placement to LTAC pending Brief history: 59-year-old female patient with significant history of hypertension GERD depression COPD coronary artery disease CHF was admitted through emergency room with acute hypoxic hypercapnic respiratory failure requiring intubation and ventilatory support. Admitted to ICU evaluated by pulmonary critical, cardiology for A. fib flutter with rapid ventricular rate, started on Cardizem and amiodarone. Not a candidate for anticoagulation due to history of severe GI bleeding. Patient had mild hypotension, improved with holding Blood pressure and diuretic meds. Sputum cultures positive for Pseudomonas, treated with cefepime, ID following. Patient is extubated today, continue to monitor Physical exam: General appearance: Present: no acute distress, well-nourished, obese, - EENT Eyes: Present: PERRL, EOM intact - Neck Neck: Present: supple, normal ROM - Respiratory Respiratory effort: normal Respiratory: bilateral: diminished, rhonchi, negative: rales, wheezing - Cardiovascular Rhythm: regular Heart Sounds: Present: S1 & S2 - Extremities Extremities: no ischemia, No edema - Abdominal General gastrointestinal: soft, non-tender, non-distended, normal bowel sounds - Integumentary Integumentary: Present: clear, warm - Psychiatric Psychiatric: other (Alert and awake ) - Neurologic Neurologic: No focal deficits, Subjective Date of service: 07/02/19 Principal diagnosis: Ac and ch hypoxic & hypercapnic resp failure; AE-COPD; Tobacco use disorder Interval history: Patient seen and examined. Medical records and medication list reviewed. No acute event overnight noted by the RN. Patient extubated this morning, appears to be alert and oriented Oxygen saturation well-maintained on nasal cannula Objective - Constitutional Vitals: Vital Signs - 12hr 07/02/19 07/02/19 07/02/19 02:00 02:30 02:45 Temperature Pulse Rate 120 H 120 H Pulse Rate [ Bilateral] Pulse Rate [ 108 H From Monitor] Respiratory 19 20 Rate Respiratory Rate [Bilateral ] Blood Pressure 123/80 160/85 O2 Sat by Pulse 96 92 93 Oximetry 07/02/19 07/02/19 07/02/19 03:00 03:30 03:41 Temperature 99.4 F Pulse Rate 110 H 100 H Pulse Rate [ Bilateral] Pulse Rate [ From Monitor] Respiratory 22 17 Rate Respiratory Rate [Bilateral ] Blood Pressure 163/76 163/76 O2 Sat by Pulse Oximetry 07/02/19 07/02/19 07/02/19 04:00 04:30 04:42 Temperature Pulse Rate 104 H 96 H 102 H Pulse Rate [ Bilateral] Pulse Rate [ From Monitor] Respiratory 22 18 Rate Respiratory Rate [Bilateral ] Blood Pressure 139/77 139/77 139/77 O2 Sat by Pulse 93 94 Oximetry 07/02/19 07/02/19 07/02/19 05:00 05:03 05:30 Temperature Pulse Rate 103 H 98 H 98 H Pulse Rate [ Bilateral] Pulse Rate [ 108 H From Monitor] Respiratory 19 20 17 Rate Respiratory Rate [Bilateral ] Blood Pressure 152/92 152/92 152/92 O2 Sat by Pulse 93 98 Oximetry 07/02/19 07/02/19 07/02/19 06:00 06:30 07:00 Temperature Pulse Rate 104 H 96 H 99 H Pulse Rate [ Bilateral] Pulse Rate [ From Monitor] Respiratory 19 17 16 Rate Respiratory Rate [Bilateral ] Blood Pressure 155/95 152/92 161/86 O2 Sat by Pulse 97 97 99 Oximetry 07/02/19 07/02/19 07/02/19 07:30 07:49 07:55 Temperature Pulse Rate 92 H 101 H 75 Pulse Rate [ 96 H Bilateral] Pulse Rate [ From Monitor] Respiratory 15 12 Rate Respiratory 20 Rate [Bilateral ] Blood Pressure 161/86 161/86 125/62 O2 Sat by Pulse 94 99 97 Oximetry 07/02/19 07/02/19 07/02/19 08:00 08:30 09:00 Temperature Pulse Rate 107 H 103 H 105 H Pulse Rate [ Bilateral] Pulse Rate [ From Monitor] Respiratory 23 22 22 Rate Respiratory Rate [Bilateral ] Blood Pressure 161/86 157/82 158/71 O2 Sat by Pulse 96 92 96 Oximetry 07/02/19 07/02/19 11:00 13:13 Temperature Pulse Rate 73 50 L Pulse Rate [ Bilateral] Pulse Rate [ From Monitor] Respiratory 12 Rate Respiratory Rate [Bilateral ] Blood Pressure 107/53 99/52 O2 Sat by Pulse 98 Oximetry - Labs CBC & Chem 7: 07/01/19 04:30 07/01/19 04:30 Labs: Abnormal lab results 07/02/19 Range/Units 13:20 ABG HCO3 32.7 H (20.0-26.0) mmol/L ABG Base Excess 6.7 H (-2.0-3.0) mmol/L ABG Hemoglobin 8.7 L (12.0-16.0) gm/dl Oxyhemoglobin 94.5 L (95.0-99.0) % HEART Score - HEART Score Troponin: Troponin T < 0.010 ng/mL (0.00-0.029) 06/12/19 05:09
[2019-07-03] MEDS: INSULIN LISPRO 100 UNIT/ML SUB-Q SCH ×4 (00:45→18:54)
[2019-07-03] MEDS: dilTIAZem 30 MG TAB PO SCH ×4 (04:34→22:34)
[2019-07-03] MEDS: ARFORMOTEROL 15 MCG/2 ML NEBU IH SCH ×2 (07:42→20:58)
[2019-07-03] MEDS: BUDESONIDE 0.5 MG/2 ML NEBU IH SCH ×2 (07:42→20:58)
[2019-07-03] MEDS: IPRATROPIUM/ALBUTEROL SULFATE 3 ML AMPUL.NEB IH SCH ×3 (07:42→20:58)
[2019-07-03] MEDS: VENLAFAXINE 75 MG TAB PO SCH (08:31)
[2019-07-03] MEDS: AMIODARONE 200 MG TAB PO SCH (09:06)
[2019-07-03] MEDS: LANSOPRAZOLE 30 MG SOLUTAB FEEDTUBE SCH (09:06)
[2019-07-03] MEDS: DOCUSATE SODIUM 100 MG/10 ML ORAL LIQD PO SCH ×2 (09:06→22:37)
[2019-07-03] MEDS: QUEtiapine 100 MG TAB PO SCH ×2 (09:06→22:35)
[2019-07-03] MEDS ORDERED: predniSONE 20 MG TAB PO SCH (10:00)
--- NOTE | 2019-07-03 11:43 | Progress Note ---
Assessment and Plan Acute and chronic hypoxic and hypercapnic respiratory failure: Acute exacerbation of COPD Tobacco use disorder/Nicotine dependence (on going) Hypernatremia History of coronary artery disease/CHF History of HTN Chronic narcotic dependence Chronic back pain Anxiety disorder History of depression; Obesity; BMI 32.2 - transfer to [facility] - hold cardizem for SBP < 100 mmHg - continue rate control per cardiology otherwise (on amiodarone) - continue supplemental oxygen with restrictive strategies acutely re: severe COPD (PaO2 of 60 with O2 sats 88-90% is acceptable) - continue bronchodilators with pulmonary hygiene per RT - COVID negative - Avoid benzodiazepine's, reduce the possibility of delirium - Maintenance of sleep-wake cycle, avoid delirium - advance diet per BUILDING MANAGER - Accuchecks with glycemic control per SSI for target blood glucose of 140-180 mg/dL while critically ill; avoid hypoglycemia - VTE prophylaxis (Lovenox) - Stress ulcer prophylaxis (Prevacid) - wean systemic Steroids - de-escalate AB's per ID rec's - Monitor hemodynamics closely - Nicotine withdrawal precautions, nicotine patch - In view of ongoing smoking, recurrent hospital admission, will need to re- address advance directives and goals of care, once the patient is able to be a part of that discussion. Will also address smoking cessation again, once she is able to be a part of that discussion - discharge planning ongoing concurrently (LTAC evaluation) - continue other care per attending / other systems security consultant's .... re-evaluate in am & prn CONDITION: CRITICAL PROGNOSIS: GUARDED CODE STATUS: FULL CODE The high probability of a clinically significant, sudden or life-threatening deterioration of the respiratory, cardiovascular, neurology, endocrine] system(s) required my full and direct attention, intervention and personal management. The aggregate critical care time was [34] minutes without overlap. Time includes spent on; [x] Data Review and interpretation [x] Patient assessment and monitoring of vital signs [x] Documentation [x] Medication orders and management Subjective Date of service: 07/03/19 Principal diagnosis: Ac and ch hypoxic & hypercapnic resp failure; AE-COPD; Tobacco use disorder Interval history: Patient is seen today for: Ac and ch hypoxic hypercapnic resp failure; AE-COPD; Tobacco use disorder/Nicotine dependence; Hypernatremia; HTN (hypotensive at presentation; Chronic narcotic dependence ; Chronic back pain; Anxiety disorder Seen and examined at bedside; 24-hour events reviewed; nursing and respiratory care staff consulted; no adverse overnight events reported to me; laying in bed; doing well post extubation so far;' No N/V/F/C; BP's labile with some MAP's in 50's Objective Vital Signs - 12hr 07/03/19 07/03/19 07/03/19 00:00 00:30 01:00 Temperature 99.5 F Pulse Rate 106 H 100 H 106 H Pulse Rate [ Bilateral] Pulse Rate [ From Monitor] Pulse Rate [ Left Dorsalis Pedis] Pulse Rate [ Left Radial] Pulse Rate [ Right Dorsalis Pedis] Pulse Rate [ Right Radial] Respiratory 21 22 21 Rate Respiratory Rate [Bilateral ] Blood Pressure 144/80 144/80 136/70 O2 Sat by Pulse 94 96 94 Oximetry 07/03/19 07/03/19 07/03/19 01:31 02:01 02:20 Temperature Pulse Rate 94 H 108 H Pulse Rate [ Bilateral] Pulse Rate [ From Monitor] Pulse Rate [ Left Dorsalis Pedis] Pulse Rate [ Left Radial] Pulse Rate [ Right Dorsalis Pedis] Pulse Rate [ Right Radial] Respiratory 19 21 Rate Respiratory Rate [Bilateral ] Blood Pressure 136/70 O2 Sat by Pulse 90 79 L 95 Oximetry 07/03/19 07/03/19 07/03/19 02:31 03:01 03:31 Temperature Pulse Rate 93 H 96 H 92 H Pulse Rate [ Bilateral] Pulse Rate [ From Monitor] Pulse Rate [ Left Dorsalis Pedis] Pulse Rate [ Left Radial] Pulse Rate [ Right Dorsalis Pedis] Pulse Rate [ Right Radial] Respiratory 23 23 22 Rate Respiratory Rate [Bilateral ] Blood Pressure 126/67 126/67 125/66 O2 Sat by Pulse 95 91 83 L Oximetry 07/03/19 07/03/19 07/03/19 04:00 04:01 04:30 Temperature 98.5 F Pulse Rate 99 H 81 Pulse Rate [ Bilateral] Pulse Rate [ From Monitor] Pulse Rate [ Left Dorsalis Pedis] Pulse Rate [ Left Radial] Pulse Rate [ Right Dorsalis Pedis] Pulse Rate [ Right Radial] Respiratory 21 Rate Respiratory Rate [Bilateral ] Blood Pressure 135/60 O2 Sat by Pulse 84 92 Oximetry 07/03/19 07/03/19 07/03/19 04:31 04:34 04:54 Temperature 98.5 F Pulse Rate 84 89 Pulse Rate [ Bilateral] Pulse Rate [ From Monitor] Pulse Rate [ Left Dorsalis Pedis] Pulse Rate [ Left Radial] Pulse Rate [ Right Dorsalis Pedis] Pulse Rate [ Right Radial] Respiratory 18 Rate Respiratory Rate [Bilateral ] Blood Pressure 135/60 135/60 O2 Sat by Pulse 96 Oximetry 07/03/19 07/03/19 07/03/19 05:01 05:31 05:53 Temperature Pulse Rate 81 78 78 Pulse Rate [ Bilateral] Pulse Rate [ From Monitor] Pulse Rate [ Left Dorsalis Pedis] Pulse Rate [ Left Radial] Pulse Rate [ Right Dorsalis Pedis] Pulse Rate [ Right Radial] Respiratory 22 22 Rate Respiratory Rate [Bilateral ] Blood Pressure 126/59 135/60 O2 Sat by Pulse 94 90 Oximetry 07/03/19 07/03/19 07/03/19 06:01 06:31 07:01 Temperature Pulse Rate 85 74 79 Pulse Rate [ Bilateral] Pulse Rate [ From Monitor] Pulse Rate [ Left Dorsalis Pedis] Pulse Rate [ Left Radial] Pulse Rate [ Right Dorsalis Pedis] Pulse Rate [ Right Radial] Respiratory 22 23 22 Rate Respiratory Rate [Bilateral ] Blood Pressure 123/58 123/58 128/65 O2 Sat by Pulse 91 96 98 Oximetry 07/03/19 07/03/19 07/03/19 07:31 07:42 07:51 Temperature Pulse Rate 89 Pulse Rate [ 95 H Bilateral] Pulse Rate [ From Monitor] Pulse Rate [ Left Dorsalis Pedis] Pulse Rate [ Left Radial] Pulse Rate [ Right Dorsalis Pedis] Pulse Rate [ Right Radial] Respiratory 20 Rate Respiratory 20 Rate [Bilateral ] Blood Pressure 128/65 O2 Sat by Pulse 96 96 Oximetry 07/03/19 07/03/19 07/03/19 07:53 08:00 08:01 Temperature 98.1 F Pulse Rate 78 101 H Pulse Rate [ Bilateral] Pulse Rate [ 98 H From Monitor] Pulse Rate [ 98 H Left Dorsalis Pedis] Pulse Rate [ 98 H Left Radial] Pulse Rate [ 98 H Right Dorsalis Pedis] Pulse Rate [ 98 H Right Radial] Respiratory 19 19 Rate Respiratory Rate [Bilateral ] Blood Pressure 151/81 O2 Sat by Pulse 94 98 Oximetry 07/03/19 07/03/19 07/03/19 08:31 09:01 09:31 Temperature Pulse Rate 79 101 H 79 Pulse Rate [ Bilateral] Pulse Rate [ From Monitor] Pulse Rate [ Left Dorsalis Pedis] Pulse Rate [ Left Radial] Pulse Rate [ Right Dorsalis Pedis] Pulse Rate [ Right Radial] Respiratory 23 25 H 26 H Rate Respiratory Rate [Bilateral ] Blood Pressure 151/81 125/68 125/68 O2 Sat by Pulse 95 93 93 Oximetry 07/03/19 07/03/19 10:01 10:31 Temperature Pulse Rate 76 74 Pulse Rate [ Bilateral] Pulse Rate [ From Monitor] Pulse Rate [ Left Dorsalis Pedis] Pulse Rate [ Left Radial] Pulse Rate [ Right Dorsalis Pedis] Pulse Rate [ Right Radial] Respiratory 20 20 Rate Respiratory Rate [Bilateral ] Blood Pressure 113/52 113/52 O2 Sat by Pulse 95 96 Oximetry Constitutional: no acute distress, other (elderly looking obese CF, normocephalic on MVS without signidficant dyssynchrony) Eyes: non-icteric ENT: oropharynx moist, other (extubated) Neck: supple, no lymphadenopathy, no JVD Effort: mildly labored Ascultation: Bilateral: diminished breath sounds, rhonchi Percussion: Bilateral: not dull Cardiovascular: regular rate and rhythm Gastrointestinal: normoactive bowel sounds, soft, non-tender, non-distended Integumentary: normal Extremities: no cyanosis, no edema, pulses normal, no ischemia or petechiae Neurologic: non-focal exam (grossly), pupils equal and round, CN II-XII normal, unable to assess Psychiatric: mood appropriate, affect normal CBC and BMP: 07/01/19 04:30 07/04/19 05:06 ABG, PT/INR, D-dimer: ABG ABG pH 7.387 pH Units (7.350-7.450) 07/02/19 13:20 ABG pCO2 55.7 mm Hg 07/02/19 13:20 ABG pO2 81.5 mm Hg (80.0-90.0) 07/02/19 13:20 ABG O2 Saturation 96.4 % (95.0-99.0) 07/02/19 13:20 PT/INR, D-dimer PT 13.0 Sec. (12.2-14.9) 06/11/19 18:03 INR 0.97 (0.87-1.13) 06/11/19 18:03 D-Dimer 1177.30 ng/mlDDU (0-234) H 06/19/19 14:14 Abnormal lab findings: Abnormal Labs 06/11/19 06/11/19 06/11/19 18:03 18:03 18:03 WBC Hgb MCH 25 L RDW 19.4 H Plt Count 124 L [place] % (Auto) 10.3 H Lymph # 1.1 L Seg Neutrophils % 74.4 H Seg Neuts % (Manual) Lymphocytes % (Manual) Seg Neutrophils # Man Lymphocytes # (Manual) Monocytes # (Manual) D-Dimer ABG pH ABG pO2 ABG HCO3 ABG O2 Saturation ABG Base Excess ABG Hemoglobin Oxyhemoglobin Sodium 146 H Potassium Chloride Carbon Dioxide BUN 21 H Creatinine 0.4 L Glucose POC Glucose Calcium Magnesium 2.70 H Lactate Dehydrogenase CK-MB (CK-2) CK-MB (CK-2) Rel Index Albumin 3.5 L Ur Specific [place] Urine WBC (Auto) Digoxin Salicylates 1.0 L Acetaminophen 06/11/19 06/11/19 06/11/19 18:03 18:59 23:22 WBC Hgb MCH RDW Plt Count [place] % (Auto) Lymph # Seg Neutrophils % Seg Neuts % (Manual) Lymphocytes % (Manual) Seg Neutrophils # Man Lymphocytes # (Manual) Monocytes # (Manual) D-Dimer ABG pH 7.340 L ABG pO2 76.0 L ABG HCO3 34.6 H ABG O2 Saturation ABG Base Excess 7.1 H ABG Hemoglobin 10.9 L Oxyhemoglobin 91.6 L Sodium Potassium Chloride Carbon Dioxide BUN Creatinine Glucose POC Glucose Calcium Magnesium Lactate Dehydrogenase CK-MB (CK-2) 5.5 H CK-MB (CK-2) Rel Index 5.5 H Albumin Ur Specific [place] Urine WBC (Auto) Digoxin Salicylates Acetaminophen < 5.0 L 06/12/19 06/12/19 06/12/19 00:29 02:04 04:20 WBC Hgb MCH RDW Plt Count [place] % (Auto) Lymph # Seg Neutrophils % Seg Neuts % (Manual) Lymphocytes % (Manual) Seg Neutrophils # Man Lymphocytes # (Manual) Monocytes # (Manual) D-Dimer ABG pH 7.313 L ABG pO2 75.3 L ABG HCO3 29.9 H ABG O2 Saturation 94.3 L ABG Base Excess ABG Hemoglobin 10.8 L Oxyhemoglobin 92.0 L Sodium Potassium Chloride Carbon Dioxide BUN Creatinine Glucose POC Glucose 107 H Calcium Magnesium Lactate Dehydrogenase CK-MB (CK-2) CK-MB (CK-2) Rel Index Albumin Ur Specific [place] Urine WBC (Auto) 30.0 H Digoxin Salicylates Acetaminophen 06/12/19 06/12/19 06/12/19 05:09 05:09 05:09 WBC Hgb MCH 25 L RDW 19.4 H Plt Count 114 L [place] % (Auto) Lymph # Seg Neutrophils % Seg Neuts % (Manual) 91.0 H Lymphocytes % (Manual) 7.0 L Seg Neutrophils # Man Lymphocytes # (Manual) 0.4 L Monocytes # (Manual) D-Dimer ABG pH ABG pO2 ABG HCO3 ABG O2 Saturation ABG Base Excess ABG Hemoglobin Oxyhemoglobin Sodium 147 H Potassium Chloride 107.4 H Carbon Dioxide BUN 19 H Creatinine 0.4 L Glucose 110 H POC Glucose Calcium 8.2 L Magnesium Lactate Dehydrogenase CK-MB (CK-2) CK-MB (CK-2) Rel Index 5.4 H Albumin Ur Specific [place] Urine WBC (Auto) Digoxin Salicylates Acetaminophen 06/12/19 06/12/19 06/13/19 06:42 23:21 04:14 WBC Hgb MCH RDW Plt Count [place] % (Auto) Lymph # Seg Neutrophils % Seg Neuts % (Manual) Lymphocytes % (Manual) Seg Neutrophils # Man Lymphocytes # (Manual) Monocytes # (Manual) D-Dimer ABG pH ABG pO2 62.6 L ABG HCO3 29.6 H ABG O2 Saturation 91.0 L ABG Base Excess ABG Hemoglobin 10.3 L Oxyhemoglobin 89.0 L Sodium Potassium Chloride Carbon Dioxide BUN Creatinine Glucose POC Glucose 108 H 106 H Calcium Magnesium Lactate Dehydrogenase CK-MB (CK-2) CK-MB (CK-2) Rel Index Albumin Ur Specific [place] Urine WBC (Auto) Digoxin Salicylates Acetaminophen 06/13/19 06/13/19 06/13/19 04:54 04:54 12:20 WBC Hgb MCH 25 L RDW 19.2 H Plt Count 119 L [place] % (Auto) Lymph # Seg Neutrophils % Seg Neuts % (Manual) 95.0 H Lymphocytes % (Manual) 2.0 L Seg Neutrophils # Man 9.1 H Lymphocytes # (Manual) 0.2 L Monocytes # (Manual) D-Dimer ABG pH ABG pO2 ABG HCO3 ABG O2 Saturation ABG Base Excess ABG Hemoglobin Oxyhemoglobin Sodium 149 H Potassium Chloride 111.4 H Carbon Dioxide BUN 26 H Creatinine 0.5 L Glucose 107 H POC Glucose 125 H Calcium Magnesium Lactate Dehydrogenase CK-MB (CK-2) CK-MB (CK-2) Rel Index Albumin Ur Specific [place] Urine WBC (Auto) Digoxin Salicylates Acetaminophen 06/13/19 06/14/19 06/14/19 17:25 03:44 04:55 WBC Hgb MCH RDW Plt Count [place] % (Auto) Lymph # Seg Neutrophils % Seg Neuts % (Manual) Lymphocytes % (Manual) Seg Neutrophils # Man Lymphocytes # (Manual) Monocytes # (Manual) D-Dimer ABG pH ABG pO2 58.9 L ABG HCO3 29.5 H ABG O2 Saturation 88.7 L ABG Base Excess ABG Hemoglobin 10.2 L Oxyhemoglobin 86.7 L Sodium 150 H Potassium Chloride 110.4 H Carbon Dioxide BUN 20 H Creatinine 0.4 L Glucose 105 H POC Glucose 128 H Calcium Magnesium Lactate Dehydrogenase CK-MB (CK-2) CK-MB (CK-2) Rel Index Albumin Ur Specific [place] Urine WBC (Auto) Digoxin Salicylates Acetaminophen 06/14/19 06/14/19 06/14/19 05:37 11:58 21:00 WBC Hgb MCH RDW Plt Count [place] % (Auto) Lymph # Seg Neutrophils % Seg Neuts % (Manual) Lymphocytes % (Manual) Seg Neutrophils # Man Lymphocytes # (Manual) Monocytes # (Manual) D-Dimer ABG pH 7.321 L ABG pO2 60.0 L ABG HCO3 31.4 H ABG O2 Saturation 87.3 L ABG Base Excess 4.1 H ABG Hemoglobin 10.6 L Oxyhemoglobin 84.8 L Sodium Potassium Chloride Carbon Dioxide BUN Creatinine Glucose POC Glucose 111 H 116 H Calcium Magnesium Lactate Dehydrogenase CK-MB (CK-2) CK-MB (CK-2) Rel Index Albumin Ur Specific [place] Urine WBC (Auto) Digoxin Salicylates Acetaminophen 06/15/19 06/15/19 06/15/19 00:22 03:25 05:08 WBC Hgb MCH RDW Plt Count [place] % (Auto) Lymph # Seg Neutrophils % Seg Neuts % (Manual) Lymphocytes % (Manual) Seg Neutrophils # Man Lymphocytes # (Manual) Monocytes # (Manual) D-Dimer ABG pH 7.317 L ABG pO2 ABG HCO3 31.5 H ABG O2 Saturation ABG Base Excess 4.1 H ABG Hemoglobin 10.4 L Oxyhemoglobin 94.1 L Sodium Potassium Chloride Carbon Dioxide 31 H BUN 23 H Creatinine 0.3 L Glucose 120 H POC Glucose 108 H Calcium Magnesium Lactate Dehydrogenase CK-MB (CK-2) CK-MB (CK-2) Rel Index Albumin Ur Specific [place] Urine WBC (Auto) Digoxin Salicylates Acetaminophen 06/15/19 06/15/19 06/15/19 05:24 11:41 17:38 WBC Hgb MCH RDW Plt Count [place] % (Auto) Lymph # Seg Neutrophils % Seg Neuts % (Manual) Lymphocytes % (Manual) Seg Neutrophils # Man Lymphocytes # (Manual) Monocytes # (Manual) D-Dimer ABG pH ABG pO2 ABG HCO3 ABG O2 Saturation ABG Base Excess ABG Hemoglobin Oxyhemoglobin Sodium Potassium Chloride Carbon Dioxide BUN Creatinine Glucose POC Glucose 111 H 154 H 115 H Calcium Magnesium Lactate Dehydrogenase CK-MB (CK-2) CK-MB (CK-2) Rel Index Albumin Ur Specific [place] Urine WBC (Auto) Digoxin Salicylates Acetaminophen 06/15/19 06/16/19 06/16/19 23:31 03:40 05:18 WBC Hgb MCH RDW Plt Count [place] % (Auto) Lymph # Seg Neutrophils % Seg Neuts % (Manual) Lymphocytes % (Manual) Seg Neutrophils # Man Lymphocytes # (Manual) Monocytes # (Manual) D-Dimer ABG pH 7.313 L ABG pO2 96.4 H ABG HCO3 35.2 H ABG O2 Saturation ABG Base Excess 7.2 H ABG Hemoglobin 10.5 L Oxyhemoglobin 94.9 L Sodium Potassium Chloride Carbon Dioxide BUN Creatinine Glucose POC Glucose 161 H 158 H Calcium Magnesium Lactate Dehydrogenase CK-MB (CK-2) CK-MB (CK-2) Rel Index Albumin Ur Specific [place] Urine WBC (Auto) Digoxin Salicylates Acetaminophen 06/16/19 06/16/19 06/16/19 05:45 05:45 12:06 WBC 12.1 H Hgb MCH 25 L RDW 18.7 H Plt Count 93 L [place] % (Auto) Lymph # Seg Neutrophils % Seg Neuts % (Manual) 97.0 H Lymphocytes % (Manual) 0 L Seg Neutrophils # Man 11.7 H Lymphocytes # (Manual) 0.0 L Monocytes # (Manual) D-Dimer ABG pH ABG pO2 ABG HCO3 ABG O2 Saturation ABG Base Excess ABG Hemoglobin Oxyhemoglobin Sodium Potassium Chloride Carbon Dioxide 33 H BUN 25 H Creatinine 0.3 L Glucose 165 H POC Glucose 178 H Calcium Magnesium Lactate Dehydrogenase CK-MB (CK-2) CK-MB (CK-2) Rel Index Albumin Ur Specific [place] Urine WBC (Auto) Digoxin Salicylates Acetaminophen 06/16/19 06/16/19 06/17/19 17:55 23:42 03:35 WBC Hgb MCH RDW Plt Count [place] % (Auto) Lymph # Seg Neutrophils % Seg Neuts % (Manual) Lymphocytes % (Manual) Seg Neutrophils # Man Lymphocytes # (Manual) Monocytes # (Manual) D-Dimer ABG pH ABG pO2 73.2 L ABG HCO3 35.2 H ABG O2 Saturation 94.5 L ABG Base Excess 8.8 H ABG Hemoglobin 10.7 L Oxyhemoglobin 92.6 L Sodium Potassium Chloride Carbon Dioxide BUN Creatinine Glucose POC Glucose 180 H 160 H Calcium Magnesium Lactate Dehydrogenase CK-MB (CK-2) CK-MB (CK-2) Rel Index Albumin Ur Specific [place] Urine WBC (Auto) Digoxin Salicylates Acetaminophen 06/17/19 06/17/19 06/17/19 04:57 09:45 11:59 WBC 11.7 H Hgb MCH 25 L RDW 18.2 H Plt Count 79 L [place] % (Auto) Lymph # Seg Neutrophils % Seg Neuts % (Manual) 96.0 H Lymphocytes % (Manual) 3.0 L Seg Neutrophils # Man 11.2 H Lymphocytes # (Manual) 0.4 L Monocytes # (Manual) D-Dimer ABG pH ABG pO2 ABG HCO3 ABG O2 Saturation ABG Base Excess ABG Hemoglobin Oxyhemoglobin Sodium Potassium Chloride Carbon Dioxide 34 H BUN 31 H Creatinine 0.3 L Glucose 153 H POC Glucose 163 H Calcium Magnesium Lactate Dehydrogenase CK-MB (CK-2) CK-MB (CK-2) Rel Index Albumin Ur Specific [place] Urine WBC (Auto) Digoxin Salicylates Acetaminophen 06/17/19 06/17/19 06/17/19 12:34 17:33 23:39 WBC Hgb MCH RDW Plt Count [place] % (Auto) Lymph # Seg Neutrophils % Seg Neuts % (Manual) Lymphocytes % (Manual) Seg Neutrophils # Man Lymphocytes # (Manual) Monocytes # (Manual) D-Dimer ABG pH ABG pO2 ABG HCO3 ABG O2 Saturation ABG Base Excess ABG Hemoglobin Oxyhemoglobin Sodium Potassium Chloride Carbon Dioxide BUN Creatinine Glucose POC Glucose 171 H 186 H 161 H Calcium Magnesium Lactate Dehydrogenase CK-MB (CK-2) CK-MB (CK-2) Rel Index Albumin Ur Specific [place] Urine WBC (Auto) Digoxin Salicylates Acetaminophen 06/18/19 06/18/19 06/18/19 04:25 05:23 05:23 WBC 13.2 H Hgb MCH 25 L RDW 18.3 H Plt Count 81 L [place] % (Auto) Lymph # Seg Neutrophils % Seg Neuts % (Manual) 96.0 H Lymphocytes % (Manual) 4.0 L Seg Neutrophils # Man 12.7 H Lymphocytes # (Manual) 0.5 L Monocytes # (Manual) D-Dimer ABG pH ABG pO2 72.9 L ABG HCO3 33.8 H ABG O2 Saturation 94.6 L ABG Base Excess 7.3 H ABG Hemoglobin 11.1 L Oxyhemoglobin 92.8 L Sodium Potassium Chloride Carbon Dioxide 34 H BUN 36 H Creatinine 0.3 L Glucose 162 H POC Glucose Calcium Magnesium Lactate Dehydrogenase CK-MB (CK-2) CK-MB (CK-2) Rel Index Albumin Ur Specific [place] Urine WBC (Auto) Digoxin Salicylates Acetaminophen 06/18/19 06/18/19 06/18/19 05:37 12:26 18:17 WBC Hgb MCH RDW Plt Count [place] % (Auto) Lymph # Seg Neutrophils % Seg Neuts % (Manual) Lymphocytes % (Manual) Seg Neutrophils # Man Lymphocytes # (Manual) Monocytes # (Manual) D-Dimer ABG pH ABG pO2 ABG HCO3 ABG O2 Saturation ABG Base Excess ABG Hemoglobin Oxyhemoglobin Sodium Potassium Chloride Carbon Dioxide BUN Creatinine Glucose POC Glucose 177 H 156 H 134 H Calcium Magnesium Lactate Dehydrogenase CK-MB (CK-2) CK-MB (CK-2) Rel Index Albumin Ur Specific [place] Urine WBC (Auto) Digoxin Salicylates Acetaminophen 06/18/19 06/19/19 06/19/19 23:51 05:58 12:12 WBC Hgb MCH RDW Plt Count [place] % (Auto) Lymph # Seg Neutrophils % Seg Neuts % (Manual) Lymphocytes % (Manual) Seg Neutrophils # Man Lymphocytes # (Manual) Monocytes # (Manual) D-Dimer ABG pH ABG pO2 ABG HCO3 ABG O2 Saturation ABG Base Excess ABG Hemoglobin Oxyhemoglobin Sodium Potassium Chloride Carbon Dioxide BUN Creatinine Glucose POC Glucose 153 H 143 H 186 H Calcium Magnesium Lactate Dehydrogenase CK-MB (CK-2) CK-MB (CK-2) Rel Index Albumin Ur Specific [place] Urine WBC (Auto) Digoxin Salicylates Acetaminophen 06/19/19 06/19/19 06/19/19 12:40 14:14 14:14 WBC Hgb MCH RDW Plt Count [place] % (Auto) Lymph # Seg Neutrophils % Seg Neuts % (Manual) Lymphocytes % (Manual) Seg Neutrophils # Man Lymphocytes # (Manual) Monocytes # (Manual) D-Dimer 1177.30 H ABG pH ABG pO2 ABG HCO3 ABG O2 Saturation ABG Base Excess ABG Hemoglobin Oxyhemoglobin Sodium Potassium Chloride Carbon Dioxide BUN Creatinine Glucose POC Glucose Calcium Magnesium Lactate Dehydrogenase 290 H CK-MB (CK-2) CK-MB (CK-2) Rel Index Albumin Ur Specific [place] 1.032 H Urine WBC (Auto) Digoxin Salicylates Acetaminophen 06/19/19 06/19/19 06/19/19 16:40 17:00 23:50 WBC Hgb MCH RDW Plt Count [place] % (Auto) Lymph # Seg Neutrophils % Seg Neuts % (Manual) Lymphocytes % (Manual) Seg Neutrophils # Man Lymphocytes # (Manual) Monocytes # (Manual) D-Dimer ABG pH ABG pO2 54.2 L ABG HCO3 32.1 H ABG O2 Saturation 87.8 L ABG Base Excess 6.3 H ABG Hemoglobin 11.2 L Oxyhemoglobin 85.9 L Sodium Potassium Chloride Carbon Dioxide BUN Creatinine Glucose POC Glucose 137 H 148 H Calcium Magnesium Lactate Dehydrogenase CK-MB (CK-2) CK-MB (CK-2) Rel Index Albumin Ur Specific [place] Urine WBC (Auto) Digoxin Salicylates Acetaminophen 06/20/19 06/20/19 06/20/19 05:14 05:30 05:40 WBC 16.4 H Hgb MCH 25 L RDW 18.3 H Plt Count 79 L [place] % (Auto) Lymph # Seg Neutrophils % Seg Neuts % (Manual) Lymphocytes % (Manual) Seg Neutrophils # Man Lymphocytes # (Manual) Monocytes # (Manual) D-Dimer ABG pH ABG pO2 63.4 L ABG HCO3 32.9 H ABG O2 Saturation 91.8 L ABG Base Excess 6.2 H ABG Hemoglobin 10.4 L Oxyhemoglobin 89.7 L Sodium Potassium Chloride Carbon Dioxide BUN Creatinine Glucose POC Glucose 164 H Calcium Magnesium Lactate Dehydrogenase CK-MB (CK-2) CK-MB (CK-2) Rel Index Albumin Ur Specific [place] Urine WBC (Auto) Digoxin Salicylates Acetaminophen 06/20/19 06/20/19 06/20/19 05:40 12:35 18:32 WBC Hgb MCH RDW Plt Count [place] % (Auto) Lymph # Seg Neutrophils % Seg Neuts % (Manual) Lymphocytes % (Manual) Seg Neutrophils # Man Lymphocytes # (Manual) Monocytes # (Manual) D-Dimer ABG pH ABG pO2 ABG HCO3 ABG O2 Saturation ABG Base Excess ABG Hemoglobin Oxyhemoglobin Sodium Potassium Chloride Carbon Dioxide 31 H BUN 25 H Creatinine 0.3 L Glucose 150 H POC Glucose 162 H 159 H Calcium Magnesium Lactate Dehydrogenase CK-MB (CK-2) CK-MB (CK-2) Rel Index Albumin Ur Specific [place] Urine WBC (Auto) Digoxin Salicylates Acetaminophen 06/21/19 06/21/19 06/21/19 00:12 04:58 04:58 WBC 13.9 H Hgb 9.7 L MCH 25 L RDW 17.9 H Plt Count 85 L [place] % (Auto) Lymph # Seg Neutrophils % Seg Neuts % (Manual) Lymphocytes % (Manual) Seg Neutrophils # Man Lymphocytes # (Manual) Monocytes # (Manual) D-Dimer ABG pH ABG pO2 ABG HCO3 ABG O2 Saturation ABG Base Excess ABG Hemoglobin Oxyhemoglobin Sodium Potassium Chloride Carbon Dioxide 31 H BUN 23 H Creatinine 0.3 L Glucose 142 H POC Glucose 144 H Calcium Magnesium Lactate Dehydrogenase CK-MB (CK-2) CK-MB (CK-2) Rel Index Albumin Ur Specific [place] Urine WBC (Auto) Digoxin Salicylates Acetaminophen 06/21/19 06/21/19 06/21/19 05:42 12:43 23:17 WBC Hgb MCH RDW Plt Count [place] % (Auto) Lymph # Seg Neutrophils % Seg Neuts % (Manual) Lymphocytes % (Manual) Seg Neutrophils # Man Lymphocytes # (Manual) Monocytes # (Manual) D-Dimer ABG pH ABG pO2 ABG HCO3 ABG O2 Saturation ABG Base Excess ABG Hemoglobin Oxyhemoglobin Sodium Potassium Chloride Carbon Dioxide BUN Creatinine Glucose POC Glucose 137 H 118 H 141 H Calcium Magnesium Lactate Dehydrogenase CK-MB (CK-2) CK-MB (CK-2) Rel Index Albumin Ur Specific [place] Urine WBC (Auto) Digoxin Salicylates Acetaminophen 06/22/19 06/22/19 06/22/19 05:28 12:11 18:27 WBC Hgb MCH RDW Plt Count [place] % (Auto) Lymph # Seg Neutrophils % Seg Neuts % (Manual) Lymphocytes % (Manual) Seg Neutrophils # Man Lymphocytes # (Manual) Monocytes # (Manual) D-Dimer ABG pH ABG pO2 ABG HCO3 ABG O2 Saturation ABG Base Excess ABG Hemoglobin Oxyhemoglobin Sodium Potassium Chloride Carbon Dioxide BUN Creatinine Glucose POC Glucose 144 H 138 H 169 H Calcium Magnesium Lactate Dehydrogenase CK-MB (CK-2) CK-MB (CK-2) Rel Index Albumin Ur Specific [place] Urine WBC (Auto) Digoxin Salicylates Acetaminophen 06/23/19 06/23/19 06/23/19 00:12 05:05 05:05 WBC 11.5 H Hgb MCH 25 L RDW 17.5 H Plt Count 98 L [place] % (Auto) Lymph # Seg Neutrophils % Seg Neuts % (Manual) 88.0 H Lymphocytes % (Manual) 4.0 L Seg Neutrophils # Man 10.1 H Lymphocytes # (Manual) 0.5 L Monocytes # (Manual) D-Dimer ABG pH ABG pO2 ABG HCO3 ABG O2 Saturation ABG Base Excess ABG Hemoglobin Oxyhemoglobin Sodium 133 L Potassium 5.3 H Chloride 95.5 L Carbon Dioxide BUN 24 H Creatinine 0.3 L Glucose 168 H POC Glucose 154 H Calcium Magnesium 2.60 H Lactate Dehydrogenase CK-MB (CK-2) CK-MB (CK-2) Rel Index Albumin Ur Specific [place] Urine WBC (Auto) Digoxin Salicylates Acetaminophen 06/23/19 06/23/19 06/23/19 05:15 08:50 12:00 WBC Hgb MCH RDW Plt Count [place] % (Auto) Lymph # Seg Neutrophils % Seg Neuts % (Manual) Lymphocytes % (Manual) Seg Neutrophils # Man Lymphocytes # (Manual) Monocytes # (Manual) D-Dimer ABG pH ABG pO2 56.9 L ABG HCO3 33.2 H ABG O2 Saturation 88.0 L ABG Base Excess 7.0 H ABG Hemoglobin 9.9 L Oxyhemoglobin 86.4 L Sodium Potassium Chloride Carbon Dioxide BUN Creatinine Glucose POC Glucose 174 H 168 H Calcium Magnesium Lactate Dehydrogenase CK-MB (CK-2) CK-MB (CK-2) Rel Index Albumin Ur Specific [place] Urine WBC (Auto) Digoxin Salicylates Acetaminophen 06/23/19 06/23/19 06/24/19 17:54 23:55 04:41 WBC Hgb MCH RDW Plt Count [place] % (Auto) Lymph # Seg Neutrophils % Seg Neuts % (Manual) Lymphocytes % (Manual) Seg Neutrophils # Man Lymphocytes # (Manual) Monocytes # (Manual) D-Dimer ABG pH ABG pO2 ABG HCO3 ABG O2 Saturation ABG Base Excess ABG Hemoglobin Oxyhemoglobin Sodium Potassium Chloride Carbon Dioxide BUN Creatinine Glucose POC Glucose 146 H 145 H Calcium Magnesium Lactate Dehydrogenase CK-MB (CK-2) CK-MB (CK-2) Rel Index Albumin Ur Specific [place] Urine WBC (Auto) Digoxin 0.5 L Salicylates Acetaminophen 06/24/19 06/24/19 06/24/19 05:53 12:01 16:55 WBC Hgb MCH RDW Plt Count [place] % (Auto) Lymph # Seg Neutrophils % Seg Neuts % (Manual) Lymphocytes % (Manual) Seg Neutrophils # Man Lymphocytes # (Manual) Monocytes # (Manual) D-Dimer ABG pH ABG pO2 ABG HCO3 ABG O2 Saturation ABG Base Excess ABG Hemoglobin Oxyhemoglobin Sodium Potassium Chloride Carbon Dioxide BUN Creatinine Glucose POC Glucose 184 H 178 H 152 H Calcium Magnesium Lactate Dehydrogenase CK-MB (CK-2) CK-MB (CK-2) Rel Index Albumin Ur Specific [place] Urine WBC (Auto) Digoxin Salicylates Acetaminophen 06/25/19 06/25/19 06/25/19 00:10 04:37 04:38 WBC 17.9 H Hgb MCH 25 L RDW 18.3 H Plt Count 124 L [place] % (Auto) Lymph # Seg Neutrophils % Seg Neuts % (Manual) 94.0 H Lymphocytes % (Manual) 1.0 L Seg Neutrophils # Man 16.8 H Lymphocytes # (Manual) 0.2 L Monocytes # (Manual) 0.9 H D-Dimer ABG pH ABG pO2 62.7 L ABG HCO3 33.0 H ABG O2 Saturation 91.8 L ABG Base Excess 7.8 H ABG Hemoglobin 10.0 L Oxyhemoglobin 90.2 L Sodium Potassium Chloride Carbon Dioxide BUN Creatinine Glucose POC Glucose 145 H Calcium Magnesium Lactate Dehydrogenase CK-MB (CK-2) CK-MB (CK-2) Rel Index Albumin Ur Specific [place] Urine WBC (Auto) Digoxin Salicylates Acetaminophen 06/25/19 06/25/19 06/25/19 04:38 05:40 12:45 WBC Hgb MCH RDW Plt Count [place] % (Auto) Lymph # Seg Neutrophils % Seg Neuts % (Manual) Lymphocytes % (Manual) Seg Neutrophils # Man Lymphocytes # (Manual) Monocytes # (Manual) D-Dimer ABG pH ABG pO2 ABG HCO3 ABG O2 Saturation ABG Base Excess ABG Hemoglobin Oxyhemoglobin Sodium Potassium Chloride 95.4 L Carbon Dioxide 31 H BUN 22 H Creatinine 0.3 L Glucose 126 H POC Glucose 128 H 169 H Calcium Magnesium Lactate Dehydrogenase CK-MB (CK-2) CK-MB (CK-2) Rel Index Albumin Ur Specific [place] Urine WBC (Auto) Digoxin Salicylates Acetaminophen 06/25/19 06/26/19 06/26/19 16:57 00:30 05:22 WBC Hgb MCH RDW Plt Count [place] % (Auto) Lymph # Seg Neutrophils % Seg Neuts % (Manual) Lymphocytes % (Manual) Seg Neutrophils # Man Lymphocytes # (Manual) Monocytes # (Manual) D-Dimer ABG pH ABG pO2 ABG HCO3 ABG O2 Saturation ABG Base Excess ABG Hemoglobin Oxyhemoglobin Sodium Potassium Chloride Carbon Dioxide BUN Creatinine Glucose POC Glucose 130 H 167 H 155 H Calcium Magnesium Lactate Dehydrogenase CK-MB (CK-2) CK-MB (CK-2) Rel Index Albumin Ur Specific [place] Urine WBC (Auto) Digoxin Salicylates Acetaminophen 06/26/19 06/26/19 06/27/19 12:02 23:57 05:54 WBC Hgb MCH RDW Plt Count [place] % (Auto) Lymph # Seg Neutrophils % Seg Neuts % (Manual) Lymphocytes % (Manual) Seg Neutrophils # Man Lymphocytes # (Manual) Monocytes # (Manual) D-Dimer ABG pH ABG pO2 ABG HCO3 ABG O2 Saturation ABG Base Excess ABG Hemoglobin Oxyhemoglobin Sodium Potassium Chloride Carbon Dioxide BUN Creatinine Glucose POC Glucose 130 H 155 H 152 H Calcium Magnesium Lactate Dehydrogenase CK-MB (CK-2) CK-MB (CK-2) Rel Index Albumin Ur Specific [place] Urine WBC (Auto) Digoxin Salicylates Acetaminophen 06/27/19 06/27/19 06/27/19 12:09 13:41 13:41 WBC 15.0 H Hgb 10.0 L MCH 25 L RDW 17.9 H Plt Count 114 L [place] % (Auto) Lymph # Seg Neutrophils % Seg Neuts % (Manual) 98.0 H Lymphocytes % (Manual) 0 L Seg Neutrophils # Man 14.7 H Lymphocytes # (Manual) 0.0 L Monocytes # (Manual) D-Dimer ABG pH ABG pO2 ABG HCO3 ABG O2 Saturation ABG Base Excess ABG Hemoglobin Oxyhemoglobin Sodium 135 L Potassium Chloride 96.5 L Carbon Dioxide BUN 21 H Creatinine 0.2 L Glucose 161 H POC Glucose 150 H Calcium Magnesium Lactate Dehydrogenase CK-MB (CK-2) CK-MB (CK-2) Rel Index Albumin Ur Specific [place] Urine WBC (Auto) Digoxin Salicylates Acetaminophen 06/27/19 06/28/19 06/28/19 18:03 00:22 00:58 WBC 16.2 H Hgb MCH 25 L RDW 18.2 H Plt Count 130 L [place] % (Auto) Lymph # Seg Neutrophils % Seg Neuts % (Manual) 98.0 H Lymphocytes % (Manual) 0 L Seg Neutrophils # Man 15.9 H Lymphocytes # (Manual) 0.0 L Monocytes # (Manual) D-Dimer ABG pH ABG pO2 ABG HCO3 ABG O2 Saturation ABG Base Excess ABG Hemoglobin Oxyhemoglobin Sodium Potassium Chloride Carbon Dioxide BUN Creatinine Glucose POC Glucose 156 H 150 H Calcium Magnesium Lactate Dehydrogenase CK-MB (CK-2) CK-MB (CK-2) Rel Index Albumin Ur Specific [place] Urine WBC (Auto) Digoxin Salicylates Acetaminophen 06/28/19 06/28/19 06/28/19 00:58 05:19 12:14 WBC Hgb MCH RDW Plt Count [place] % (Auto) Lymph # Seg Neutrophils % Seg Neuts % (Manual) Lymphocytes % (Manual) Seg Neutrophils # Man Lymphocytes # (Manual) Monocytes # (Manual) D-Dimer ABG pH ABG pO2 ABG HCO3 ABG O2 Saturation ABG Base Excess ABG Hemoglobin Oxyhemoglobin Sodium Potassium Chloride 96.5 L Carbon Dioxide 32 H BUN 21 H Creatinine 0.2 L Glucose 140 H POC Glucose 122 H 137 H Calcium Magnesium Lactate Dehydrogenase CK-MB (CK-2) CK-MB (CK-2) Rel Index Albumin Ur Specific [place] Urine WBC (Auto) Digoxin Salicylates Acetaminophen 06/28/19 06/28/19 06/29/19 12:20 17:06 00:20 WBC Hgb MCH RDW Plt Count [place] % (Auto) Lymph # Seg Neutrophils % Seg Neuts % (Manual) Lymphocytes % (Manual) Seg Neutrophils # Man Lymphocytes # (Manual) Monocytes # (Manual) D-Dimer ABG pH 7.464 H ABG pO2 64.2 L ABG HCO3 33.4 H ABG O2 Saturation 93.7 L ABG Base Excess 8.6 H ABG Hemoglobin 11.2 L Oxyhemoglobin 92.0 L Sodium Potassium Chloride Carbon Dioxide BUN Creatinine Glucose POC Glucose 154 H 156 H Calcium Magnesium Lactate Dehydrogenase CK-MB (CK-2) CK-MB (CK-2) Rel Index Albumin Ur Specific [place] Urine WBC (Auto) Digoxin Salicylates Acetaminophen 06/29/19 06/29/19 06/29/19 05:10 05:31 05:31 WBC 14.3 H Hgb MCH 25 L RDW 18.6 H Plt Count 122 L [place] % (Auto) Lymph # Seg Neutrophils % Seg Neuts % (Manual) 96.0 H Lymphocytes % (Manual) 1.0 L Seg Neutrophils # Man 13.7 H Lymphocytes # (Manual) 0.1 L Monocytes # (Manual) D-Dimer ABG pH ABG pO2 ABG HCO3 ABG O2 Saturation ABG Base Excess ABG Hemoglobin Oxyhemoglobin Sodium Potassium Chloride 95.6 L Carbon Dioxide BUN 26 H Creatinine 0.2 L Glucose 135 H POC Glucose 139 H Calcium Magnesium Lactate Dehydrogenase CK-MB (CK-2) CK-MB (CK-2) Rel Index Albumin Ur Specific [place] Urine WBC (Auto) Digoxin Salicylates Acetaminophen 06/29/19 06/29/19 06/30/19 12:26 18:10 00:41 WBC Hgb MCH RDW Plt Count [place] % (Auto) Lymph # Seg Neutrophils % Seg Neuts % (Manual) Lymphocytes % (Manual) Seg Neutrophils # Man Lymphocytes # (Manual) Monocytes # (Manual) D-Dimer ABG pH ABG pO2 ABG HCO3 ABG O2 Saturation ABG Base Excess ABG Hemoglobin Oxyhemoglobin Sodium Potassium Chloride Carbon Dioxide BUN Creatinine Glucose POC Glucose 144 H 153 H 127 H Calcium Magnesium Lactate Dehydrogenase CK-MB (CK-2) CK-MB (CK-2) Rel Index Albumin Ur Specific [place] Urine WBC (Auto) Digoxin Salicylates Acetaminophen 06/30/19 06/30/19 07/01/19 05:11 11:52 04:30 WBC 13.2 H Hgb MCH 25 L RDW 18.4 H Plt Count 89 L [place] % (Auto) Lymph # Seg Neutrophils % Seg Neuts % (Manual) 95.0 H Lymphocytes % (Manual) 2.0 L Seg Neutrophils # Man 12.5 H Lymphocytes # (Manual) 0.3 L Monocytes # (Manual) D-Dimer ABG pH ABG pO2 ABG HCO3 ABG O2 Saturation ABG Base Excess ABG Hemoglobin Oxyhemoglobin Sodium Potassium Chloride Carbon Dioxide BUN Creatinine Glucose POC Glucose 151 H 136 H Calcium Magnesium Lactate Dehydrogenase CK-MB (CK-2) CK-MB (CK-2) Rel Index Albumin Ur Specific [place] Urine WBC (Auto) Digoxin Salicylates Acetaminophen 07/01/19 07/01/19 07/02/19 04:30 05:57 13:20 WBC Hgb MCH RDW Plt Count [place] % (Auto) Lymph # Seg Neutrophils % Seg Neuts % (Manual) Lymphocytes % (Manual) Seg Neutrophils # Man Lymphocytes # (Manual) Monocytes # (Manual) D-Dimer ABG pH ABG pO2 ABG HCO3 32.7 H ABG O2 Saturation ABG Base Excess 6.7 H ABG Hemoglobin 8.7 L Oxyhemoglobin 94.5 L Sodium Potassium Chloride 96.0 L Carbon Dioxide BUN 24 H Creatinine 0.2 L Glucose 113 H POC Glucose 124 H Calcium Magnesium Lactate Dehydrogenase CK-MB (CK-2) CK-MB (CK-2) Rel Index Albumin Ur Specific [place] Urine WBC (Auto) Digoxin Salicylates Acetaminophen Chest x-ray: other (none today) Allied health notes reviewed: nursing
[2019-07-03] MEDS: VENLAFAXINE 25 MG TAB PO SCH ×2 (15:15→22:34)
--- NOTE | 2019-07-03 15:23 | Progress Note ---
Assessment and Plan /Acute hypoxic and hypercapnic on chronic respiratory failure: Required mechanical ventilation> 96 hours Due to acute COPD exacerbation and underlying pneumonia On nebs, steroids, supportive care Extubated 07/01, pulmonary following Continue oxygen saturation greater than 92% with nasal cannula /sepsis/pneumonia/sputum Pseudomonas 06/11/2019; present on admission ID following , treated with cefepime up to 14 days Sputum cultures again positive Pseudomonas on 06/19/2019 Negative for COVID-19 /Hypertension; moderate control Continue current antihypertensives and PRN hydralazine /Paroxysmal A. 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 Patient is critically ill with poor prognosis Closely monitor the patient and adjust management as needed Follow loans consultant recommendations The high probability of a clinically significant, sudden or life threatening deterioration of the [respiratory, CVS] system(s) required my full and direct attention, intervention and personal management. The aggregate critical care time was [31] minutes. This time is in addition to time spent performing reported procedures but includes the following: [x] Data Review and interpretation [x] Patient assessment and monitoring of vital signs [x] Documentation [x] Medication orders and management Critical care time 35 minutes 07/01: patient extubated, on 5L o2 n/c, monitor at icu, cont nebs. 07/02: order PT eval, consulted speech. wean off O2 as tolerated. if clinically stable will transfer to [facility] Brief history: 59-year-old female patient with significant history of hypertension GERD depression COPD coronary artery disease CHF was admitted through emergency room with acute hypoxic hypercapnic respiratory failure requiring intubation and ventilatory support. Admitted to ICU evaluated by pulmonary critical, cardiology for A. fib flutter with rapid ventricular rate, started on Cardizem and amiodarone. Not a candidate for anticoagulation due to history of severe GI bleeding. Patient had mild hypotension, improved with holding Blood pressure and diuretic meds. Sputum cultures positive for Pseudomonas, treated with cefepime, ID following. Patient is extubated on 07/01, continue to monitor Physical exam: General appearance: Present: no acute distress, well-nourished, obese, - EENT Eyes: Present: PERRL, EOM intact - Neck Neck: Present: supple, normal ROM - Respiratory Respiratory effort: normal Respiratory: bilateral: diminished, rhonchi, negative: rales, wheezing - Cardiovascular Rhythm: regular Heart Sounds: Present: S1 & S2 - Extremities Extremities: no ischemia, No edema - Abdominal General gastrointestinal: soft, non-tender, non-distended, normal bowel sounds - Integumentary Integumentary: Present: clear, warm - Psychiatric Psychiatric: other (Alert and awake ) - Neurologic Neurologic: No focal deficits, Subjective Date of service: 07/03/19 Principal diagnosis: Ac and ch hypoxic & hypercapnic resp failure; AE-COPD; Tobacco use disorder Interval history: Patient seen and examined. Medical records and medication list reviewed. No acute event overnight noted by the RN. Patient extubated yesterday, appears to be alert and oriented Oxygen saturation well-maintained on nasal cannula pending speech eval Objective - Constitutional Vitals: Vital Signs - 12hr 07/03/19 07/03/19 07/03/19 03:31 04:00 04:01 Temperature 98.5 F Pulse Rate 92 H 99 H Pulse Rate [ Bilateral] Pulse Rate [ From Monitor] Pulse Rate [ Left Dorsalis Pedis] Pulse Rate [ Left Radial] Pulse Rate [ Right Dorsalis Pedis] Pulse Rate [ Right Radial] Respiratory 22 21 Rate Respiratory Rate [Bilateral ] Blood Pressure 125/66 135/60 O2 Sat by Pulse 83 L 84 Oximetry 07/03/19 07/03/19 07/03/19 04:30 04:31 04:34 Temperature Pulse Rate 81 84 89 Pulse Rate [ Bilateral] Pulse Rate [ From Monitor] Pulse Rate [ Left Dorsalis Pedis] Pulse Rate [ Left Radial] Pulse Rate [ Right Dorsalis Pedis] Pulse Rate [ Right Radial] Respiratory 18 Rate Respiratory Rate [Bilateral ] Blood Pressure 135/60 135/60 O2 Sat by Pulse 92 96 Oximetry 07/03/19 07/03/19 07/03/19 04:54 05:01 05:31 Temperature 98.5 F Pulse Rate 81 78 Pulse Rate [ Bilateral] Pulse Rate [ From Monitor] Pulse Rate [ Left Dorsalis Pedis] Pulse Rate [ Left Radial] Pulse Rate [ Right Dorsalis Pedis] Pulse Rate [ Right Radial] Respiratory 22 22 Rate Respiratory Rate [Bilateral ] Blood Pressure 126/59 135/60 O2 Sat by Pulse 94 90 Oximetry 07/03/19 07/03/19 07/03/19 05:53 06:01 06:31 Temperature Pulse Rate 78 85 74 Pulse Rate [ Bilateral] Pulse Rate [ From Monitor] Pulse Rate [ Left Dorsalis Pedis] Pulse Rate [ Left Radial] Pulse Rate [ Right Dorsalis Pedis] Pulse Rate [ Right Radial] Respiratory 22 23 Rate Respiratory Rate [Bilateral ] Blood Pressure 123/58 123/58 O2 Sat by Pulse 91 96 Oximetry 07/03/19 07/03/19 07/03/19 07:01 07:31 07:42 Temperature Pulse Rate 79 89 Pulse Rate [ 95 H Bilateral] Pulse Rate [ From Monitor] Pulse Rate [ Left Dorsalis Pedis] Pulse Rate [ Left Radial] Pulse Rate [ Right Dorsalis Pedis] Pulse Rate [ Right Radial] Respiratory 22 20 Rate Respiratory 20 Rate [Bilateral ] Blood Pressure 128/65 128/65 O2 Sat by Pulse 98 96 Oximetry 07/03/19 07/03/19 07/03/19 07:51 07:53 08:00 Temperature 98.1 F Pulse Rate 78 Pulse Rate [ Bilateral] Pulse Rate [ 98 H From Monitor] Pulse Rate [ 98 H Left Dorsalis Pedis] Pulse Rate [ 98 H Left Radial] Pulse Rate [ 98 H Right Dorsalis Pedis] Pulse Rate [ 98 H Right Radial] Respiratory 19 Rate Respiratory Rate [Bilateral ] Blood Pressure O2 Sat by Pulse 96 94 Oximetry 07/03/19 07/03/19 07/03/19 08:01 08:31 09:01 Temperature Pulse Rate 101 H 79 101 H Pulse Rate [ Bilateral] Pulse Rate [ From Monitor] Pulse Rate [ Left Dorsalis Pedis] Pulse Rate [ Left Radial] Pulse Rate [ Right Dorsalis Pedis] Pulse Rate [ Right Radial] Respiratory 19 23 25 H Rate Respiratory Rate [Bilateral ] Blood Pressure 151/81 151/81 125/68 O2 Sat by Pulse 98 95 93 Oximetry 07/03/19 07/03/19 07/03/19 09:31 10:01 10:31 Temperature Pulse Rate 79 76 74 Pulse Rate [ Bilateral] Pulse Rate [ From Monitor] Pulse Rate [ Left Dorsalis Pedis] Pulse Rate [ Left Radial] Pulse Rate [ Right Dorsalis Pedis] Pulse Rate [ Right Radial] Respiratory 26 H 20 20 Rate Respiratory Rate [Bilateral ] Blood Pressure 125/68 113/52 113/52 O2 Sat by Pulse 93 95 96 Oximetry 07/03/19 07/03/19 07/03/19 11:01 11:31 12:00 Temperature 98.8 F Pulse Rate 76 77 74 Pulse Rate [ Bilateral] Pulse Rate [ 77 From Monitor] Pulse Rate [ 77 Left Dorsalis Pedis] Pulse Rate [ 77 Left Radial] Pulse Rate [ 77 Right Dorsalis Pedis] Pulse Rate [ 77 Right Radial] Respiratory 20 20 17 Rate Respiratory Rate [Bilateral ] Blood Pressure 109/53 109/53 O2 Sat by Pulse 97 95 93 Oximetry 07/03/19 07/03/19 07/03/19 12:01 12:31 13:01 Temperature Pulse Rate 100 H 75 74 Pulse Rate [ Bilateral] Pulse Rate [ From Monitor] Pulse Rate [ Left Dorsalis Pedis] Pulse Rate [ Left Radial] Pulse Rate [ Right Dorsalis Pedis] Pulse Rate [ Right Radial] Respiratory 17 17 22 Rate Respiratory Rate [Bilateral ] Blood Pressure 123/63 123/63 106/55 O2 Sat by Pulse 95 94 97 Oximetry 07/03/19 07/03/19 07/03/19 13:31 13:40 14:00 Temperature Pulse Rate 79 90 Pulse Rate [ 83 Bilateral] Pulse Rate [ From Monitor] Pulse Rate [ Left Dorsalis Pedis] Pulse Rate [ Left Radial] Pulse Rate [ Right Dorsalis Pedis] Pulse Rate [ Right Radial] Respiratory 22 24 Rate Respiratory 20 Rate [Bilateral ] Blood Pressure 106/55 102/57 O2 Sat by Pulse 95 96 96 Oximetry 07/03/19 07/03/19 14:31 15:12 Temperature Pulse Rate 79 94 H Pulse Rate [ Bilateral] Pulse Rate [ From Monitor] Pulse Rate [ Left Dorsalis Pedis] Pulse Rate [ Left Radial] Pulse Rate [ Right Dorsalis Pedis] Pulse Rate [ Right Radial] Respiratory 16 Rate Respiratory Rate [Bilateral ] Blood Pressure 102/57 107/57 O2 Sat by Pulse 94 Oximetry - Labs CBC & Chem 7: 07/01/19 04:30 07/01/19 04:30 HEART Score - HEART Score Troponin: Troponin T < 0.010 ng/mL (0.00-0.029) 06/12/19 05:09
[2019-07-03] MEDS ORDERED: D5W/0.9% NACL 1,000 ML IV SCH (19:00)
[2019-07-04] MEDS: INSULIN LISPRO 100 UNIT/ML SUB-Q SCH ×3 (06:12→12:30)
[2019-07-04 06:15] LABS: BUN/Creatinine Ratio 70; Blood Urea Nitrogen 14 mg/dL (7-17); Calcium 8.2 mg/dL (8.4-10.2); Hemolysis Index 12
[2019-07-04] MEDS: dilTIAZem 30 MG TAB PO SCH (06:21)
[2019-07-04] MEDS: ARFORMOTEROL 15 MCG/2 ML NEBU IH SCH ×2 (07:42→21:09)
[2019-07-04] MEDS: IPRATROPIUM/ALBUTEROL SULFATE 3 ML AMPUL.NEB IH SCH ×3 (07:42→21:09)
[2019-07-04] MEDS: BUDESONIDE 0.5 MG/2 ML NEBU IH SCH ×2 (07:42→21:09)
[2019-07-04] MEDS ORDERED: predniSONE 10 MG TAB PO SCH (10:00)
[2019-07-04] MEDS: QUEtiapine 100 MG TAB PO SCH ×2 (10:34→21:39)
[2019-07-04] MEDS: AMIODARONE 200 MG TAB PO SCH (10:34)
[2019-07-04] MEDS: DOCUSATE SODIUM 100 MG/10 ML ORAL LIQD PO SCH ×2 (10:40→21:39)
[2019-07-04] MEDS: VENLAFAXINE 25 MG TAB PO SCH ×3 (10:41→20:10)
[2019-07-04] MEDS: LANSOPRAZOLE 30 MG SOLUTAB FEEDTUBE SCH (10:42)
--- NOTE | 2019-07-04 12:30 | Progress Note ---
Assessment and Plan /Acute hypoxic and hypercapnic on chronic respiratory failure: Required mechanical ventilation> 96 hours Due to acute COPD exacerbation and underlying pneumonia On nebs, steroids, supportive care Extubated 07/01, pulmonary following Continue oxygen saturation greater than 92% with nasal cannula /sepsis/pneumonia/sputum Pseudomonas 06/11/2019; present on admission ID following , treated with cefepime up to 14 days Sputum cultures again positive Pseudomonas on 06/19/2019 Negative for COVID-19 /Hypertension; moderate control Continue current antihypertensives and PRN hydralazine /Paroxysmal A. 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 07/01: patient extubated, on 5L o2 n/c, monitor at icu, cont nebs. 07/02: order PT eval, consulted speech. wean off O2 as tolerated. if clinically stable will transfer to tele tomorrow 07/03 transfer to tele, order PT/OT. pending speech eval Brief history: 59-year-old female patient with significant history of hypertension GERD depression COPD coronary artery disease CHF was admitted through emergency room with acute hypoxic hypercapnic respiratory failure requiring intubation and ventilatory support. Admitted to ICU evaluated by pulmonary critical, cardiology for A. fib flutter with rapid ventricular rate, started on Cardizem and amiodarone. Not a candidate for anticoagulation due to history of severe GI bleeding. Patient had mild hypotension, improved with holding Blood pressure and diuretic meds. Sputum cultures positive for Pseudomonas, treated with cefepime, ID following. Patient is extubated on 07/01, continue to monitor Physical exam: General appearance: Present: no acute distress, well-nourished, obese, - EENT Eyes: Present: PERRL, EOM intact - Neck Neck: Present: supple, normal ROM - Respiratory Respiratory effort: normal Respiratory: bilateral: diminished, rhonchi, negative: rales, wheezing - Cardiovascular Rhythm: regular Heart Sounds: Present: S1 & S2 - Extremities Extremities: no ischemia, No edema - Abdominal General gastrointestinal: soft, non-tender, non-distended, normal bowel sounds - Integumentary Integumentary: Present: clear, warm - Psychiatric Psychiatric: other (Alert and awake ) - Neurologic Neurologic: No focal deficits Subjective Date of service: 07/04/19 Principal diagnosis: Ac and ch hypoxic & hypercapnic resp failure; AE-COPD; Tobacco use disorder Interval history: Patient seen and examined. Medical records and medication list reviewed. No acute event overnight noted by the RN. Patient appears to be alert and oriented Oxygen saturation well-maintained on nasal cannula pending speech eval - having cough with water Objective - Constitutional Vitals: Vital Signs - 12hr 07/04/19 07/04/19 07/04/19 00:31 01:01 01:31 Temperature Pulse Rate 101 H 114 H 112 H Pulse Rate [ Bilateral] Pulse Rate [ From Monitor] Pulse Rate [ Left Dorsalis Pedis] Pulse Rate [ Left Radial] Pulse Rate [ Right Dorsalis Pedis] Pulse Rate [ Right Radial] Respiratory 22 25 H 26 H Rate Respiratory Rate [Bilateral ] Blood Pressure 108/67 97/52 97/52 O2 Sat by Pulse 87 97 97 Oximetry 07/04/19 07/04/19 07/04/19 02:00 02:31 03:01 Temperature Pulse Rate 109 H 105 H 104 H Pulse Rate [ Bilateral] Pulse Rate [ From Monitor] Pulse Rate [ Left Dorsalis Pedis] Pulse Rate [ Left Radial] Pulse Rate [ Right Dorsalis Pedis] Pulse Rate [ Right Radial] Respiratory 24 24 24 Rate Respiratory Rate [Bilateral ] Blood Pressure 107/65 107/65 106/70 O2 Sat by Pulse 95 92 93 Oximetry 07/04/19 07/04/19 07/04/19 03:31 04:00 04:31 Temperature 98.3 F Pulse Rate 98 H 100 H 103 H Pulse Rate [ Bilateral] Pulse Rate [ 96 H From Monitor] Pulse Rate [ Left Dorsalis Pedis] Pulse Rate [ Left Radial] Pulse Rate [ Right Dorsalis Pedis] Pulse Rate [ Right Radial] Respiratory 25 H 26 H 21 Rate Respiratory Rate [Bilateral ] Blood Pressure 106/70 106/70 O2 Sat by Pulse 92 96 89 Oximetry 07/04/19 07/04/19 07/04/19 05:01 05:31 06:01 Temperature Pulse Rate 100 H 98 H Pulse Rate [ Bilateral] Pulse Rate [ From Monitor] Pulse Rate [ Left Dorsalis Pedis] Pulse Rate [ Left Radial] Pulse Rate [ Right Dorsalis Pedis] Pulse Rate [ Right Radial] Respiratory 21 25 H 26 H Rate Respiratory Rate [Bilateral ] Blood Pressure 121/67 121/67 121/67 O2 Sat by Pulse 97 97 97 Oximetry 07/04/19 07/04/19 07/04/19 06:21 06:31 07:01 Temperature Pulse Rate 99 H 97 H 92 H Pulse Rate [ Bilateral] Pulse Rate [ From Monitor] Pulse Rate [ Left Dorsalis Pedis] Pulse Rate [ Left Radial] Pulse Rate [ Right Dorsalis Pedis] Pulse Rate [ Right Radial] Respiratory 25 H 27 H Rate Respiratory Rate [Bilateral ] Blood Pressure 107/65 107/65 121/67 O2 Sat by Pulse 98 98 Oximetry 07/04/19 07/04/19 07/04/19 07:31 07:42 07:52 Temperature Pulse Rate 85 106 H Pulse Rate [ 96 H Bilateral] Pulse Rate [ From Monitor] Pulse Rate [ Left Dorsalis Pedis] Pulse Rate [ Left Radial] Pulse Rate [ Right Dorsalis Pedis] Pulse Rate [ Right Radial] Respiratory 26 H Rate Respiratory 20 Rate [Bilateral ] Blood Pressure 121/67 O2 Sat by Pulse 98 96 Oximetry 07/04/19 07/04/19 07/04/19 07:53 08:00 08:01 Temperature 98.7 F Pulse Rate 90 Pulse Rate [ Bilateral] Pulse Rate [ 106 H From Monitor] Pulse Rate [ 106 H Left Dorsalis Pedis] Pulse Rate [ 106 H Left Radial] Pulse Rate [ 106 H Right Dorsalis Pedis] Pulse Rate [ 106 H Right Radial] Respiratory 22 25 H Rate Respiratory Rate [Bilateral ] Blood Pressure 121/67 O2 Sat by Pulse 97 Oximetry - Labs CBC & Chem 7: 07/01/19 04:30 07/04/19 05:06 Labs: Abnormal lab results 07/04/19 Range/Units 05:06 Sodium 136 L (137-145) mmol/L Creatinine 0.2 L (0.7-1.2) mg/dL Calcium 8.2 L (8.4-10.2) mg/dL HEART Score - HEART Score Troponin: Troponin T < 0.010 ng/mL (0.00-0.029) 06/12/19 05:09
--- NOTE | 2019-07-04 13:33 | Progress Note ---
Assessment and Plan Acute and chronic hypoxic and hypercapnic respiratory failure: Acute exacerbation of COPD Tobacco use disorder/Nicotine dependence (on going) Hypernatremia History of coronary artery disease/CHF History of HTN Chronic narcotic dependence Chronic back pain Anxiety disorder History of depression; Obesity; BMI 32.2 - stopped Cardizem - transfer to [facility] - continue rate control per cardiology otherwise (on amiodarone) - continue supplemental oxygen with restrictive strategies acutely re: severe COPD (PaO2 of 60 with O2 sats 88-90% is acceptable) - continue bronchodilators with pulmonary hygiene per RT - COVID negative - Avoid benzodiazepine's, reduce the possibility of delirium - Maintenance of sleep-wake cycle, avoid delirium - advance diet per LOOP TENDER - Accuchecks with glycemic control per SSI for target blood glucose of 140-180 mg/dL while critically ill; avoid hypoglycemia - VTE prophylaxis (Lovenox) - Stress ulcer prophylaxis (Prevacid) - wean systemic Steroids - de-escalate AB's per ID rec's - Monitor hemodynamics closely - Nicotine withdrawal precautions, nicotine patch - In view of ongoing smoking, recurrent hospital admission, will need to re- address advance directives and goals of care, once the patient is able to be a part of that discussion. Will also address smoking cessation again, once she is able to be a part of that discussion - discharge planning ongoing concurrently (LTAC evaluation) - continue other care per attending / other franchise consultant's .... re-evaluate in am & prn CONDITION: CRITICAL PROGNOSIS: GUARDED CODE STATUS: FULL CODE The high probability of a clinically significant, sudden or life-threatening deterioration of the respiratory, cardiovascular, neurology, endocrine] system(s) required my full and direct attention, intervention and personal management. The aggregate critical care time was [32] minutes without overlap. Time includes spent on; [x] Data Review and interpretation [x] Patient assessment and monitoring of vital signs [x] Documentation [x] Medication orders and management Subjective Date of service: 07/04/19 Principal diagnosis: Ac and ch hypoxic & hypercapnic resp failure; AE-COPD; Tobacco use disorder Interval history: Patient is seen today for: Ac and ch hypoxic hypercapnic resp failure; AE-COPD; Tobacco use disorder/Nicotine dependence; Hypernatremia; HTN (hypotensive at presentation; Chronic narcotic dependence ; Chronic back pain; Anxiety disorder Seen and examined at bedside; 24-hour events reviewed; nursing and respiratory care staff consulted; no adverse overnight events reported to me; laying in bed; BP's still running low; doing well otherwise; no emesis or overt Objective Vital Signs - 12hr 07/04/19 07/04/19 07/04/19 02:00 02:31 03:01 Temperature Pulse Rate 109 H 105 H 104 H Pulse Rate [ Bilateral] Pulse Rate [ From Monitor] Pulse Rate [ Left Dorsalis Pedis] Pulse Rate [ Left Radial] Pulse Rate [ Right Dorsalis Pedis] Pulse Rate [ Right Radial] Respiratory 24 24 24 Rate Respiratory Rate [Bilateral ] Blood Pressure 107/65 107/65 106/70 O2 Sat by Pulse 95 92 93 Oximetry 07/04/19 07/04/19 07/04/19 03:31 04:00 04:31 Temperature 98.3 F Pulse Rate 98 H 100 H 103 H Pulse Rate [ Bilateral] Pulse Rate [ 96 H From Monitor] Pulse Rate [ Left Dorsalis Pedis] Pulse Rate [ Left Radial] Pulse Rate [ Right Dorsalis Pedis] Pulse Rate [ Right Radial] Respiratory 25 H 26 H 21 Rate Respiratory Rate [Bilateral ] Blood Pressure 106/70 106/70 O2 Sat by Pulse 92 96 89 Oximetry 07/04/19 07/04/19 07/04/19 05:01 05:31 06:01 Temperature Pulse Rate 100 H 98 H Pulse Rate [ Bilateral] Pulse Rate [ From Monitor] Pulse Rate [ Left Dorsalis Pedis] Pulse Rate [ Left Radial] Pulse Rate [ Right Dorsalis Pedis] Pulse Rate [ Right Radial] Respiratory 21 25 H 26 H Rate Respiratory Rate [Bilateral ] Blood Pressure 121/67 121/67 121/67 O2 Sat by Pulse 97 97 97 Oximetry 07/04/19 07/04/19 07/04/19 06:21 06:31 07:01 Temperature Pulse Rate 99 H 97 H 92 H Pulse Rate [ Bilateral] Pulse Rate [ From Monitor] Pulse Rate [ Left Dorsalis Pedis] Pulse Rate [ Left Radial] Pulse Rate [ Right Dorsalis Pedis] Pulse Rate [ Right Radial] Respiratory 25 H 27 H Rate Respiratory Rate [Bilateral ] Blood Pressure 107/65 107/65 121/67 O2 Sat by Pulse 98 98 Oximetry 07/04/19 07/04/19 07/04/19 07:31 07:42 07:52 Temperature Pulse Rate 85 106 H Pulse Rate [ 96 H Bilateral] Pulse Rate [ From Monitor] Pulse Rate [ Left Dorsalis Pedis] Pulse Rate [ Left Radial] Pulse Rate [ Right Dorsalis Pedis] Pulse Rate [ Right Radial] Respiratory 26 H Rate Respiratory 20 Rate [Bilateral ] Blood Pressure 121/67 O2 Sat by Pulse 98 96 Oximetry 07/04/19 07/04/19 07/04/19 07:53 08:00 08:01 Temperature 98.7 F Pulse Rate 90 Pulse Rate [ Bilateral] Pulse Rate [ 106 H From Monitor] Pulse Rate [ 106 H Left Dorsalis Pedis] Pulse Rate [ 106 H Left Radial] Pulse Rate [ 106 H Right Dorsalis Pedis] Pulse Rate [ 106 H Right Radial] Respiratory 22 25 H Rate Respiratory Rate [Bilateral ] Blood Pressure 121/67 O2 Sat by Pulse 97 Oximetry 07/04/19 07/04/19 07/04/19 09:01 10:01 11:01 Temperature Pulse Rate 81 80 100 H Pulse Rate [ Bilateral] Pulse Rate [ From Monitor] Pulse Rate [ Left Dorsalis Pedis] Pulse Rate [ Left Radial] Pulse Rate [ Right Dorsalis Pedis] Pulse Rate [ Right Radial] Respiratory 26 H 24 25 H Rate Respiratory Rate [Bilateral ] Blood Pressure 121/67 111/53 111/53 O2 Sat by Pulse 91 90 94 Oximetry 07/04/19 07/04/19 07/04/19 12:00 13:00 13:12 Temperature 97.8 F Pulse Rate 101 H 96 H Pulse Rate [ 952 H Bilateral] Pulse Rate [ From Monitor] Pulse Rate [ Left Dorsalis Pedis] Pulse Rate [ Left Radial] Pulse Rate [ Right Dorsalis Pedis] Pulse Rate [ Right Radial] Respiratory 25 H 22 Rate Respiratory 20 Rate [Bilateral ] Blood Pressure 93/51 96/52 O2 Sat by Pulse 94 93 Oximetry Constitutional: no acute distress, other (elderly looking obese CF, normocephalic on MVS without signidficant dyssynchrony) Eyes: non-icteric ENT: oropharynx moist, other (extubated) Neck: supple, no lymphadenopathy, no JVD Effort: mildly labored Ascultation: Bilateral: diminished breath sounds, rhonchi Percussion: Bilateral: not dull Cardiovascular: regular rate and rhythm Gastrointestinal: normoactive bowel sounds, soft, non-tender, non-distended Integumentary: normal Extremities: no cyanosis, no edema, pulses normal, no ischemia or petechiae Neurologic: non-focal exam (grossly), pupils equal and round, CN II-XII normal, unable to assess Psychiatric: mood appropriate, affect normal CBC and BMP: 07/01/19 04:30 07/06/19 04:51 ABG, PT/INR, D-dimer: ABG ABG pH 7.387 pH Units (7.350-7.450) 07/02/19 13:20 ABG pCO2 55.7 mm Hg 07/02/19 13:20 ABG pO2 81.5 mm Hg (80.0-90.0) 07/02/19 13:20 ABG O2 Saturation 96.4 % (95.0-99.0) 07/02/19 13:20 PT/INR, D-dimer PT 13.0 Sec. (12.2-14.9) 06/11/19 18:03 INR 0.97 (0.87-1.13) 06/11/19 18:03 D-Dimer 1177.30 ng/mlDDU (0-234) H 06/19/19 14:14 Abnormal lab findings: Abnormal Labs 06/11/19 06/11/19 06/11/19 18:03 18:03 18:03 WBC Hgb MCH 25 L RDW 19.4 H Plt Count 124 L [place] % (Auto) 10.3 H Lymph # 1.1 L Seg Neutrophils % 74.4 H Seg Neuts % (Manual) Lymphocytes % (Manual) Seg Neutrophils # Man Lymphocytes # (Manual) Monocytes # (Manual) D-Dimer ABG pH ABG pO2 ABG HCO3 ABG O2 Saturation ABG Base Excess ABG Hemoglobin Oxyhemoglobin Sodium 146 H Potassium Chloride Carbon Dioxide BUN 21 H Creatinine 0.4 L Glucose POC Glucose Calcium Magnesium 2.70 H Lactate Dehydrogenase CK-MB (CK-2) CK-MB (CK-2) Rel Index Albumin 3.5 L Ur Specific [place] Urine WBC (Auto) Digoxin Salicylates 1.0 L Acetaminophen 06/11/19 06/11/19 06/11/19 18:03 18:59 23:22 WBC Hgb MCH RDW Plt Count [place] % (Auto) Lymph # Seg Neutrophils % Seg Neuts % (Manual) Lymphocytes % (Manual) Seg Neutrophils # Man Lymphocytes # (Manual) Monocytes # (Manual) D-Dimer ABG pH 7.340 L ABG pO2 76.0 L ABG HCO3 34.6 H ABG O2 Saturation ABG Base Excess 7.1 H ABG Hemoglobin 10.9 L Oxyhemoglobin 91.6 L Sodium Potassium Chloride Carbon Dioxide BUN Creatinine Glucose POC Glucose Calcium Magnesium Lactate Dehydrogenase CK-MB (CK-2) 5.5 H CK-MB (CK-2) Rel Index 5.5 H Albumin Ur Specific [place] Urine WBC (Auto) Digoxin Salicylates Acetaminophen < 5.0 L 06/12/19 06/12/19 06/12/19 00:29 02:04 04:20 WBC Hgb MCH RDW Plt Count [place] % (Auto) Lymph # Seg Neutrophils % Seg Neuts % (Manual) Lymphocytes % (Manual) Seg Neutrophils # Man Lymphocytes # (Manual) Monocytes # (Manual) D-Dimer ABG pH 7.313 L ABG pO2 75.3 L ABG HCO3 29.9 H ABG O2 Saturation 94.3 L ABG Base Excess ABG Hemoglobin 10.8 L Oxyhemoglobin 92.0 L Sodium Potassium Chloride Carbon Dioxide BUN Creatinine Glucose POC Glucose 107 H Calcium Magnesium Lactate Dehydrogenase CK-MB (CK-2) CK-MB (CK-2) Rel Index Albumin Ur Specific [place] Urine WBC (Auto) 30.0 H Digoxin Salicylates Acetaminophen 06/12/19 06/12/19 06/12/19 05:09 05:09 05:09 WBC Hgb MCH 25 L RDW 19.4 H Plt Count 114 L [place] % (Auto) Lymph # Seg Neutrophils % Seg Neuts % (Manual) 91.0 H Lymphocytes % (Manual) 7.0 L Seg Neutrophils # Man Lymphocytes # (Manual) 0.4 L Monocytes # (Manual) D-Dimer ABG pH ABG pO2 ABG HCO3 ABG O2 Saturation ABG Base Excess ABG Hemoglobin Oxyhemoglobin Sodium 147 H Potassium Chloride 107.4 H Carbon Dioxide BUN 19 H Creatinine 0.4 L Glucose 110 H POC Glucose Calcium 8.2 L Magnesium Lactate Dehydrogenase CK-MB (CK-2) CK-MB (CK-2) Rel Index 5.4 H Albumin Ur Specific [place] Urine WBC (Auto) Digoxin Salicylates Acetaminophen 06/12/19 06/12/19 06/13/19 06:42 23:21 04:14 WBC Hgb MCH RDW Plt Count [place] % (Auto) Lymph # Seg Neutrophils % Seg Neuts % (Manual) Lymphocytes % (Manual) Seg Neutrophils # Man Lymphocytes # (Manual) Monocytes # (Manual) D-Dimer ABG pH ABG pO2 62.6 L ABG HCO3 29.6 H ABG O2 Saturation 91.0 L ABG Base Excess ABG Hemoglobin 10.3 L Oxyhemoglobin 89.0 L Sodium Potassium Chloride Carbon Dioxide BUN Creatinine Glucose POC Glucose 108 H 106 H Calcium Magnesium Lactate Dehydrogenase CK-MB (CK-2) CK-MB (CK-2) Rel Index Albumin Ur Specific [place] Urine WBC (Auto) Digoxin Salicylates Acetaminophen 06/13/19 06/13/19 06/13/19 04:54 04:54 12:20 WBC Hgb MCH 25 L RDW 19.2 H Plt Count 119 L [place] % (Auto) Lymph # Seg Neutrophils % Seg Neuts % (Manual) 95.0 H Lymphocytes % (Manual) 2.0 L Seg Neutrophils # Man 9.1 H Lymphocytes # (Manual) 0.2 L Monocytes # (Manual) D-Dimer ABG pH ABG pO2 ABG HCO3 ABG O2 Saturation ABG Base Excess ABG Hemoglobin Oxyhemoglobin Sodium 149 H Potassium Chloride 111.4 H Carbon Dioxide BUN 26 H Creatinine 0.5 L Glucose 107 H POC Glucose 125 H Calcium Magnesium Lactate Dehydrogenase CK-MB (CK-2) CK-MB (CK-2) Rel Index Albumin Ur Specific [place] Urine WBC (Auto) Digoxin Salicylates Acetaminophen 06/13/19 06/14/19 06/14/19 17:25 03:44 04:55 WBC Hgb MCH RDW Plt Count [place] % (Auto) Lymph # Seg Neutrophils % Seg Neuts % (Manual) Lymphocytes % (Manual) Seg Neutrophils # Man Lymphocytes # (Manual) Monocytes # (Manual) D-Dimer ABG pH ABG pO2 58.9 L ABG HCO3 29.5 H ABG O2 Saturation 88.7 L ABG Base Excess ABG Hemoglobin 10.2 L Oxyhemoglobin 86.7 L Sodium 150 H Potassium Chloride 110.4 H Carbon Dioxide BUN 20 H Creatinine 0.4 L Glucose 105 H POC Glucose 128 H Calcium Magnesium Lactate Dehydrogenase CK-MB (CK-2) CK-MB (CK-2) Rel Index Albumin Ur Specific [place] Urine WBC (Auto) Digoxin Salicylates Acetaminophen 06/14/19 06/14/19 06/14/19 05:37 11:58 21:00 WBC Hgb MCH RDW Plt Count [place] % (Auto) Lymph # Seg Neutrophils % Seg Neuts % (Manual) Lymphocytes % (Manual) Seg Neutrophils # Man Lymphocytes # (Manual) Monocytes # (Manual) D-Dimer ABG pH 7.321 L ABG pO2 60.0 L ABG HCO3 31.4 H ABG O2 Saturation 87.3 L ABG Base Excess 4.1 H ABG Hemoglobin 10.6 L Oxyhemoglobin 84.8 L Sodium Potassium Chloride Carbon Dioxide BUN Creatinine Glucose POC Glucose 111 H 116 H Calcium Magnesium Lactate Dehydrogenase CK-MB (CK-2) CK-MB (CK-2) Rel Index Albumin Ur Specific [place] Urine WBC (Auto) Digoxin Salicylates Acetaminophen 06/15/19 06/15/19 06/15/19 00:22 03:25 05:08 WBC Hgb MCH RDW Plt Count [place] % (Auto) Lymph # Seg Neutrophils % Seg Neuts % (Manual) Lymphocytes % (Manual) Seg Neutrophils # Man Lymphocytes # (Manual) Monocytes # (Manual) D-Dimer ABG pH 7.317 L ABG pO2 ABG HCO3 31.5 H ABG O2 Saturation ABG Base Excess 4.1 H ABG Hemoglobin 10.4 L Oxyhemoglobin 94.1 L Sodium Potassium Chloride Carbon Dioxide 31 H BUN 23 H Creatinine 0.3 L Glucose 120 H POC Glucose 108 H Calcium Magnesium Lactate Dehydrogenase CK-MB (CK-2) CK-MB (CK-2) Rel Index Albumin Ur Specific [place] Urine WBC (Auto) Digoxin Salicylates Acetaminophen 06/15/19 06/15/19 06/15/19 05:24 11:41 17:38 WBC Hgb MCH RDW Plt Count [place] % (Auto) Lymph # Seg Neutrophils % Seg Neuts % (Manual) Lymphocytes % (Manual) Seg Neutrophils # Man Lymphocytes # (Manual) Monocytes # (Manual) D-Dimer ABG pH ABG pO2 ABG HCO3 ABG O2 Saturation ABG Base Excess ABG Hemoglobin Oxyhemoglobin Sodium Potassium Chloride Carbon Dioxide BUN Creatinine Glucose POC Glucose 111 H 154 H 115 H Calcium Magnesium Lactate Dehydrogenase CK-MB (CK-2) CK-MB (CK-2) Rel Index Albumin Ur Specific [place] Urine WBC (Auto) Digoxin Salicylates Acetaminophen 06/15/19 06/16/19 06/16/19 23:31 03:40 05:18 WBC Hgb MCH RDW Plt Count [place] % (Auto) Lymph # Seg Neutrophils % Seg Neuts % (Manual) Lymphocytes % (Manual) Seg Neutrophils # Man Lymphocytes # (Manual) Monocytes # (Manual) D-Dimer ABG pH 7.313 L ABG pO2 96.4 H ABG HCO3 35.2 H ABG O2 Saturation ABG Base Excess 7.2 H ABG Hemoglobin 10.5 L Oxyhemoglobin 94.9 L Sodium Potassium Chloride Carbon Dioxide BUN Creatinine Glucose POC Glucose 161 H 158 H Calcium Magnesium Lactate Dehydrogenase CK-MB (CK-2) CK-MB (CK-2) Rel Index Albumin Ur Specific [place] Urine WBC (Auto) Digoxin Salicylates Acetaminophen 06/16/19 06/16/19 06/16/19 05:45 05:45 12:06 WBC 12.1 H Hgb MCH 25 L RDW 18.7 H Plt Count 93 L [place] % (Auto) Lymph # Seg Neutrophils % Seg Neuts % (Manual) 97.0 H Lymphocytes % (Manual) 0 L Seg Neutrophils # Man 11.7 H Lymphocytes # (Manual) 0.0 L Monocytes # (Manual) D-Dimer ABG pH ABG pO2 ABG HCO3 ABG O2 Saturation ABG Base Excess ABG Hemoglobin Oxyhemoglobin Sodium Potassium Chloride Carbon Dioxide 33 H BUN 25 H Creatinine 0.3 L Glucose 165 H POC Glucose 178 H Calcium Magnesium Lactate Dehydrogenase CK-MB (CK-2) CK-MB (CK-2) Rel Index Albumin Ur Specific [place] Urine WBC (Auto) Digoxin Salicylates Acetaminophen 06/16/19 06/16/19 06/17/19 17:55 23:42 03:35 WBC Hgb MCH RDW Plt Count [place] % (Auto) Lymph # Seg Neutrophils % Seg Neuts % (Manual) Lymphocytes % (Manual) Seg Neutrophils # Man Lymphocytes # (Manual) Monocytes # (Manual) D-Dimer ABG pH ABG pO2 73.2 L ABG HCO3 35.2 H ABG O2 Saturation 94.5 L ABG Base Excess 8.8 H ABG Hemoglobin 10.7 L Oxyhemoglobin 92.6 L Sodium Potassium Chloride Carbon Dioxide BUN Creatinine Glucose POC Glucose 180 H 160 H Calcium Magnesium Lactate Dehydrogenase CK-MB (CK-2) CK-MB (CK-2) Rel Index Albumin Ur Specific [place] Urine WBC (Auto) Digoxin Salicylates Acetaminophen 06/17/19 06/17/19 06/17/19 04:57 09:45 11:59 WBC 11.7 H Hgb MCH 25 L RDW 18.2 H Plt Count 79 L [place] % (Auto) Lymph # Seg Neutrophils % Seg Neuts % (Manual) 96.0 H Lymphocytes % (Manual) 3.0 L Seg Neutrophils # Man 11.2 H Lymphocytes # (Manual) 0.4 L Monocytes # (Manual) D-Dimer ABG pH ABG pO2 ABG HCO3 ABG O2 Saturation ABG Base Excess ABG Hemoglobin Oxyhemoglobin Sodium Potassium Chloride Carbon Dioxide 34 H BUN 31 H Creatinine 0.3 L Glucose 153 H POC Glucose 163 H Calcium Magnesium Lactate Dehydrogenase CK-MB (CK-2) CK-MB (CK-2) Rel Index Albumin Ur Specific [place] Urine WBC (Auto) Digoxin Salicylates Acetaminophen 06/17/19 06/17/19 06/17/19 12:34 17:33 23:39 WBC Hgb MCH RDW Plt Count [place] % (Auto) Lymph # Seg Neutrophils % Seg Neuts % (Manual) Lymphocytes % (Manual) Seg Neutrophils # Man Lymphocytes # (Manual) Monocytes # (Manual) D-Dimer ABG pH ABG pO2 ABG HCO3 ABG O2 Saturation ABG Base Excess ABG Hemoglobin Oxyhemoglobin Sodium Potassium Chloride Carbon Dioxide BUN Creatinine Glucose POC Glucose 171 H 186 H 161 H Calcium Magnesium Lactate Dehydrogenase CK-MB (CK-2) CK-MB (CK-2) Rel Index Albumin Ur Specific [place] Urine WBC (Auto) Digoxin Salicylates Acetaminophen 06/18/19 06/18/19 06/18/19 04:25 05:23 05:23 WBC 13.2 H Hgb MCH 25 L RDW 18.3 H Plt Count 81 L [place] % (Auto) Lymph # Seg Neutrophils % Seg Neuts % (Manual) 96.0 H Lymphocytes % (Manual) 4.0 L Seg Neutrophils # Man 12.7 H Lymphocytes # (Manual) 0.5 L Monocytes # (Manual) D-Dimer ABG pH ABG pO2 72.9 L ABG HCO3 33.8 H ABG O2 Saturation 94.6 L ABG Base Excess 7.3 H ABG Hemoglobin 11.1 L Oxyhemoglobin 92.8 L Sodium Potassium Chloride Carbon Dioxide 34 H BUN 36 H Creatinine 0.3 L Glucose 162 H POC Glucose Calcium Magnesium Lactate Dehydrogenase CK-MB (CK-2) CK-MB (CK-2) Rel Index Albumin Ur Specific [place] Urine WBC (Auto) Digoxin Salicylates Acetaminophen 06/18/19 06/18/19 06/18/19 05:37 12:26 18:17 WBC Hgb MCH RDW Plt Count [place] % (Auto) Lymph # Seg Neutrophils % Seg Neuts % (Manual) Lymphocytes % (Manual) Seg Neutrophils # Man Lymphocytes # (Manual) Monocytes # (Manual) D-Dimer ABG pH ABG pO2 ABG HCO3 ABG O2 Saturation ABG Base Excess ABG Hemoglobin Oxyhemoglobin Sodium Potassium Chloride Carbon Dioxide BUN Creatinine Glucose POC Glucose 177 H 156 H 134 H Calcium Magnesium Lactate Dehydrogenase CK-MB (CK-2) CK-MB (CK-2) Rel Index Albumin Ur Specific [place] Urine WBC (Auto) Digoxin Salicylates Acetaminophen 06/18/19 06/19/19 06/19/19 23:51 05:58 12:12 WBC Hgb MCH RDW Plt Count [place] % (Auto) Lymph # Seg Neutrophils % Seg Neuts % (Manual) Lymphocytes % (Manual) Seg Neutrophils # Man Lymphocytes # (Manual) Monocytes # (Manual) D-Dimer ABG pH ABG pO2 ABG HCO3 ABG O2 Saturation ABG Base Excess ABG Hemoglobin Oxyhemoglobin Sodium Potassium Chloride Carbon Dioxide BUN Creatinine Glucose POC Glucose 153 H 143 H 186 H Calcium Magnesium Lactate Dehydrogenase CK-MB (CK-2) CK-MB (CK-2) Rel Index Albumin Ur Specific [place] Urine WBC (Auto) Digoxin Salicylates Acetaminophen 06/19/19 06/19/19 06/19/19 12:40 14:14 14:14 WBC Hgb MCH RDW Plt Count [place] % (Auto) Lymph # Seg Neutrophils % Seg Neuts % (Manual) Lymphocytes % (Manual) Seg Neutrophils # Man Lymphocytes # (Manual) Monocytes # (Manual) D-Dimer 1177.30 H ABG pH ABG pO2 ABG HCO3 ABG O2 Saturation ABG Base Excess ABG Hemoglobin Oxyhemoglobin Sodium Potassium Chloride Carbon Dioxide BUN Creatinine Glucose POC Glucose Calcium Magnesium Lactate Dehydrogenase 290 H CK-MB (CK-2) CK-MB (CK-2) Rel Index Albumin Ur Specific [place] 1.032 H Urine WBC (Auto) Digoxin Salicylates Acetaminophen 06/19/19 06/19/19 06/19/19 16:40 17:00 23:50 WBC Hgb MCH RDW Plt Count [place] % (Auto) Lymph # Seg Neutrophils % Seg Neuts % (Manual) Lymphocytes % (Manual) Seg Neutrophils # Man Lymphocytes # (Manual) Monocytes # (Manual) D-Dimer ABG pH ABG pO2 54.2 L ABG HCO3 32.1 H ABG O2 Saturation 87.8 L ABG Base Excess 6.3 H ABG Hemoglobin 11.2 L Oxyhemoglobin 85.9 L Sodium Potassium Chloride Carbon Dioxide BUN Creatinine Glucose POC Glucose 137 H 148 H Calcium Magnesium Lactate Dehydrogenase CK-MB (CK-2) CK-MB (CK-2) Rel Index Albumin Ur Specific [place] Urine WBC (Auto) Digoxin Salicylates Acetaminophen 06/20/19 06/20/19 06/20/19 05:14 05:30 05:40 WBC 16.4 H Hgb MCH 25 L RDW 18.3 H Plt Count 79 L [place] % (Auto) Lymph # Seg Neutrophils % Seg Neuts % (Manual) Lymphocytes % (Manual) Seg Neutrophils # Man Lymphocytes # (Manual) Monocytes # (Manual) D-Dimer ABG pH ABG pO2 63.4 L ABG HCO3 32.9 H ABG O2 Saturation 91.8 L ABG Base Excess 6.2 H ABG Hemoglobin 10.4 L Oxyhemoglobin 89.7 L Sodium Potassium Chloride Carbon Dioxide BUN Creatinine Glucose POC Glucose 164 H Calcium Magnesium Lactate Dehydrogenase CK-MB (CK-2) CK-MB (CK-2) Rel Index Albumin Ur Specific [place] Urine WBC (Auto) Digoxin Salicylates Acetaminophen 06/20/19 06/20/19 06/20/19 05:40 12:35 18:32 WBC Hgb MCH RDW Plt Count [place] % (Auto) Lymph # Seg Neutrophils % Seg Neuts % (Manual) Lymphocytes % (Manual) Seg Neutrophils # Man Lymphocytes # (Manual) Monocytes # (Manual) D-Dimer ABG pH ABG pO2 ABG HCO3 ABG O2 Saturation ABG Base Excess ABG Hemoglobin Oxyhemoglobin Sodium Potassium Chloride Carbon Dioxide 31 H BUN 25 H Creatinine 0.3 L Glucose 150 H POC Glucose 162 H 159 H Calcium Magnesium Lactate Dehydrogenase CK-MB (CK-2) CK-MB (CK-2) Rel Index Albumin Ur Specific [place] Urine WBC (Auto) Digoxin Salicylates Acetaminophen 06/21/19 06/21/19 06/21/19 00:12 04:58 04:58 WBC 13.9 H Hgb 9.7 L MCH 25 L RDW 17.9 H Plt Count 85 L [place] % (Auto) Lymph # Seg Neutrophils % Seg Neuts % (Manual) Lymphocytes % (Manual) Seg Neutrophils # Man Lymphocytes # (Manual) Monocytes # (Manual) D-Dimer ABG pH ABG pO2 ABG HCO3 ABG O2 Saturation ABG Base Excess ABG Hemoglobin Oxyhemoglobin Sodium Potassium Chloride Carbon Dioxide 31 H BUN 23 H Creatinine 0.3 L Glucose 142 H POC Glucose 144 H Calcium Magnesium Lactate Dehydrogenase CK-MB (CK-2) CK-MB (CK-2) Rel Index Albumin Ur Specific [place] Urine WBC (Auto) Digoxin Salicylates Acetaminophen 06/21/19 06/21/19 06/21/19 05:42 12:43 23:17 WBC Hgb MCH RDW Plt Count [place] % (Auto) Lymph # Seg Neutrophils % Seg Neuts % (Manual) Lymphocytes % (Manual) Seg Neutrophils # Man Lymphocytes # (Manual) Monocytes # (Manual) D-Dimer ABG pH ABG pO2 ABG HCO3 ABG O2 Saturation ABG Base Excess ABG Hemoglobin Oxyhemoglobin Sodium Potassium Chloride Carbon Dioxide BUN Creatinine Glucose POC Glucose 137 H 118 H 141 H Calcium Magnesium Lactate Dehydrogenase CK-MB (CK-2) CK-MB (CK-2) Rel Index Albumin Ur Specific [place] Urine WBC (Auto) Digoxin Salicylates Acetaminophen 06/22/19 06/22/19 06/22/19 05:28 12:11 18:27 WBC Hgb MCH RDW Plt Count [place] % (Auto) Lymph # Seg Neutrophils % Seg Neuts % (Manual) Lymphocytes % (Manual) Seg Neutrophils # Man Lymphocytes # (Manual) Monocytes # (Manual) D-Dimer ABG pH ABG pO2 ABG HCO3 ABG O2 Saturation ABG Base Excess ABG Hemoglobin Oxyhemoglobin Sodium Potassium Chloride Carbon Dioxide BUN Creatinine Glucose POC Glucose 144 H 138 H 169 H Calcium Magnesium Lactate Dehydrogenase CK-MB (CK-2) CK-MB (CK-2) Rel Index Albumin Ur Specific [place] Urine WBC (Auto) Digoxin Salicylates Acetaminophen 06/23/19 06/23/19 06/23/19 00:12 05:05 05:05 WBC 11.5 H Hgb MCH 25 L RDW 17.5 H Plt Count 98 L [place] % (Auto) Lymph # Seg Neutrophils % Seg Neuts % (Manual) 88.0 H Lymphocytes % (Manual) 4.0 L Seg Neutrophils # Man 10.1 H Lymphocytes # (Manual) 0.5 L Monocytes # (Manual) D-Dimer ABG pH ABG pO2 ABG HCO3 ABG O2 Saturation ABG Base Excess ABG Hemoglobin Oxyhemoglobin Sodium 133 L Potassium 5.3 H Chloride 95.5 L Carbon Dioxide BUN 24 H Creatinine 0.3 L Glucose 168 H POC Glucose 154 H Calcium Magnesium 2.60 H Lactate Dehydrogenase CK-MB (CK-2) CK-MB (CK-2) Rel Index Albumin Ur Specific [place] Urine WBC (Auto) Digoxin Salicylates Acetaminophen 06/23/19 06/23/19 06/23/19 05:15 08:50 12:00 WBC Hgb MCH RDW Plt Count [place] % (Auto) Lymph # Seg Neutrophils % Seg Neuts % (Manual) Lymphocytes % (Manual) Seg Neutrophils # Man Lymphocytes # (Manual) Monocytes # (Manual) D-Dimer ABG pH ABG pO2 56.9 L ABG HCO3 33.2 H ABG O2 Saturation 88.0 L ABG Base Excess 7.0 H ABG Hemoglobin 9.9 L Oxyhemoglobin 86.4 L Sodium Potassium Chloride Carbon Dioxide BUN Creatinine Glucose POC Glucose 174 H 168 H Calcium Magnesium Lactate Dehydrogenase CK-MB (CK-2) CK-MB (CK-2) Rel Index Albumin Ur Specific [place] Urine WBC (Auto) Digoxin Salicylates Acetaminophen 06/23/19 06/23/19 06/24/19 17:54 23:55 04:41 WBC Hgb MCH RDW Plt Count [place] % (Auto) Lymph # Seg Neutrophils % Seg Neuts % (Manual) Lymphocytes % (Manual) Seg Neutrophils # Man Lymphocytes # (Manual) Monocytes # (Manual) D-Dimer ABG pH ABG pO2 ABG HCO3 ABG O2 Saturation ABG Base Excess ABG Hemoglobin Oxyhemoglobin Sodium Potassium Chloride Carbon Dioxide BUN Creatinine Glucose POC Glucose 146 H 145 H Calcium Magnesium Lactate Dehydrogenase CK-MB (CK-2) CK-MB (CK-2) Rel Index Albumin Ur Specific [place] Urine WBC (Auto) Digoxin 0.5 L Salicylates Acetaminophen 06/24/19 06/24/19 06/24/19 05:53 12:01 16:55 WBC Hgb MCH RDW Plt Count [place] % (Auto) Lymph # Seg Neutrophils % Seg Neuts % (Manual) Lymphocytes % (Manual) Seg Neutrophils # Man Lymphocytes # (Manual) Monocytes # (Manual) D-Dimer ABG pH ABG pO2 ABG HCO3 ABG O2 Saturation ABG Base Excess ABG Hemoglobin Oxyhemoglobin Sodium Potassium Chloride Carbon Dioxide BUN Creatinine Glucose POC Glucose 184 H 178 H 152 H Calcium Magnesium Lactate Dehydrogenase CK-MB (CK-2) CK-MB (CK-2) Rel Index Albumin Ur Specific [place] Urine WBC (Auto) Digoxin Salicylates Acetaminophen 06/25/19 06/25/19 06/25/19 00:10 04:37 04:38 WBC 17.9 H Hgb MCH 25 L RDW 18.3 H Plt Count 124 L [place] % (Auto) Lymph # Seg Neutrophils % Seg Neuts % (Manual) 94.0 H Lymphocytes % (Manual) 1.0 L Seg Neutrophils # Man 16.8 H Lymphocytes # (Manual) 0.2 L Monocytes # (Manual) 0.9 H D-Dimer ABG pH ABG pO2 62.7 L ABG HCO3 33.0 H ABG O2 Saturation 91.8 L ABG Base Excess 7.8 H ABG Hemoglobin 10.0 L Oxyhemoglobin 90.2 L Sodium Potassium Chloride Carbon Dioxide BUN Creatinine Glucose POC Glucose 145 H Calcium Magnesium Lactate Dehydrogenase CK-MB (CK-2) CK-MB (CK-2) Rel Index Albumin Ur Specific [place] Urine WBC (Auto) Digoxin Salicylates Acetaminophen 06/25/19 06/25/19 06/25/19 04:38 05:40 12:45 WBC Hgb MCH RDW Plt Count [place] % (Auto) Lymph # Seg Neutrophils % Seg Neuts % (Manual) Lymphocytes % (Manual) Seg Neutrophils # Man Lymphocytes # (Manual) Monocytes # (Manual) D-Dimer ABG pH ABG pO2 ABG HCO3 ABG O2 Saturation ABG Base Excess ABG Hemoglobin Oxyhemoglobin Sodium Potassium Chloride 95.4 L Carbon Dioxide 31 H BUN 22 H Creatinine 0.3 L Glucose 126 H POC Glucose 128 H 169 H Calcium Magnesium Lactate Dehydrogenase CK-MB (CK-2) CK-MB (CK-2) Rel Index Albumin Ur Specific [place] Urine WBC (Auto) Digoxin Salicylates Acetaminophen 06/25/19 06/26/19 06/26/19 16:57 00:30 05:22 WBC Hgb MCH RDW Plt Count [place] % (Auto) Lymph # Seg Neutrophils % Seg Neuts % (Manual) Lymphocytes % (Manual) Seg Neutrophils # Man Lymphocytes # (Manual) Monocytes # (Manual) D-Dimer ABG pH ABG pO2 ABG HCO3 ABG O2 Saturation ABG Base Excess ABG Hemoglobin Oxyhemoglobin Sodium Potassium Chloride Carbon Dioxide BUN Creatinine Glucose POC Glucose 130 H 167 H 155 H Calcium Magnesium Lactate Dehydrogenase CK-MB (CK-2) CK-MB (CK-2) Rel Index Albumin Ur Specific [place] Urine WBC (Auto) Digoxin Salicylates Acetaminophen 06/26/19 06/26/19 06/27/19 12:02 23:57 05:54 WBC Hgb MCH RDW Plt Count [place] % (Auto) Lymph # Seg Neutrophils % Seg Neuts % (Manual) Lymphocytes % (Manual) Seg Neutrophils # Man Lymphocytes # (Manual) Monocytes # (Manual) D-Dimer ABG pH ABG pO2 ABG HCO3 ABG O2 Saturation ABG Base Excess ABG Hemoglobin Oxyhemoglobin Sodium Potassium Chloride Carbon Dioxide BUN Creatinine Glucose POC Glucose 130 H 155 H 152 H Calcium Magnesium Lactate Dehydrogenase CK-MB (CK-2) CK-MB (CK-2) Rel Index Albumin Ur Specific [place] Urine WBC (Auto) Digoxin Salicylates Acetaminophen 06/27/19 06/27/19 06/27/19 12:09 13:41 13:41 WBC 15.0 H Hgb 10.0 L MCH 25 L RDW 17.9 H Plt Count 114 L [place] % (Auto) Lymph # Seg Neutrophils % Seg Neuts % (Manual) 98.0 H Lymphocytes % (Manual) 0 L Seg Neutrophils # Man 14.7 H Lymphocytes # (Manual) 0.0 L Monocytes # (Manual) D-Dimer ABG pH ABG pO2 ABG HCO3 ABG O2 Saturation ABG Base Excess ABG Hemoglobin Oxyhemoglobin Sodium 135 L Potassium Chloride 96.5 L Carbon Dioxide BUN 21 H Creatinine 0.2 L Glucose 161 H POC Glucose 150 H Calcium Magnesium Lactate Dehydrogenase CK-MB (CK-2) CK-MB (CK-2) Rel Index Albumin Ur Specific [place] Urine WBC (Auto) Digoxin Salicylates Acetaminophen 06/27/19 06/28/19 06/28/19 18:03 00:22 00:58 WBC 16.2 H Hgb MCH 25 L RDW 18.2 H Plt Count 130 L [place] % (Auto) Lymph # Seg Neutrophils % Seg Neuts % (Manual) 98.0 H Lymphocytes % (Manual) 0 L Seg Neutrophils # Man 15.9 H Lymphocytes # (Manual) 0.0 L Monocytes # (Manual) D-Dimer ABG pH ABG pO2 ABG HCO3 ABG O2 Saturation ABG Base Excess ABG Hemoglobin Oxyhemoglobin Sodium Potassium Chloride Carbon Dioxide BUN Creatinine Glucose POC Glucose 156 H 150 H Calcium Magnesium Lactate Dehydrogenase CK-MB (CK-2) CK-MB (CK-2) Rel Index Albumin Ur Specific [place] Urine WBC (Auto) Digoxin Salicylates Acetaminophen 06/28/19 06/28/19 06/28/19 00:58 05:19 12:14 WBC Hgb MCH RDW Plt Count [place] % (Auto) Lymph # Seg Neutrophils % Seg Neuts % (Manual) Lymphocytes % (Manual) Seg Neutrophils # Man Lymphocytes # (Manual) Monocytes # (Manual) D-Dimer ABG pH ABG pO2 ABG HCO3 ABG O2 Saturation ABG Base Excess ABG Hemoglobin Oxyhemoglobin Sodium Potassium Chloride 96.5 L Carbon Dioxide 32 H BUN 21 H Creatinine 0.2 L Glucose 140 H POC Glucose 122 H 137 H Calcium Magnesium Lactate Dehydrogenase CK-MB (CK-2) CK-MB (CK-2) Rel Index Albumin Ur Specific [place] Urine WBC (Auto) Digoxin Salicylates Acetaminophen 06/28/19 06/28/19 06/29/19 12:20 17:06 00:20 WBC Hgb MCH RDW Plt Count [place] % (Auto) Lymph # Seg Neutrophils % Seg Neuts % (Manual) Lymphocytes % (Manual) Seg Neutrophils # Man Lymphocytes # (Manual) Monocytes # (Manual) D-Dimer ABG pH 7.464 H ABG pO2 64.2 L ABG HCO3 33.4 H ABG O2 Saturation 93.7 L ABG Base Excess 8.6 H ABG Hemoglobin 11.2 L Oxyhemoglobin 92.0 L Sodium Potassium Chloride Carbon Dioxide BUN Creatinine Glucose POC Glucose 154 H 156 H Calcium Magnesium Lactate Dehydrogenase CK-MB (CK-2) CK-MB (CK-2) Rel Index Albumin Ur Specific [place] Urine WBC (Auto) Digoxin Salicylates Acetaminophen 06/29/19 06/29/19 06/29/19 05:10 05:31 05:31 WBC 14.3 H Hgb MCH 25 L RDW 18.6 H Plt Count 122 L [place] % (Auto) Lymph # Seg Neutrophils % Seg Neuts % (Manual) 96.0 H Lymphocytes % (Manual) 1.0 L Seg Neutrophils # Man 13.7 H Lymphocytes # (Manual) 0.1 L Monocytes # (Manual) D-Dimer ABG pH ABG pO2 ABG HCO3 ABG O2 Saturation ABG Base Excess ABG Hemoglobin Oxyhemoglobin Sodium Potassium Chloride 95.6 L Carbon Dioxide BUN 26 H Creatinine 0.2 L Glucose 135 H POC Glucose 139 H Calcium Magnesium Lactate Dehydrogenase CK-MB (CK-2) CK-MB (CK-2) Rel Index Albumin Ur Specific [place] Urine WBC (Auto) Digoxin Salicylates Acetaminophen 06/29/19 06/29/19 06/30/19 12:26 18:10 00:41 WBC Hgb MCH RDW Plt Count [place] % (Auto) Lymph # Seg Neutrophils % Seg Neuts % (Manual) Lymphocytes % (Manual) Seg Neutrophils # Man Lymphocytes # (Manual) Monocytes # (Manual) D-Dimer ABG pH ABG pO2 ABG HCO3 ABG O2 Saturation ABG Base Excess ABG Hemoglobin Oxyhemoglobin Sodium Potassium Chloride Carbon Dioxide BUN Creatinine Glucose POC Glucose 144 H 153 H 127 H Calcium Magnesium Lactate Dehydrogenase CK-MB (CK-2) CK-MB (CK-2) Rel Index Albumin Ur Specific [place] Urine WBC (Auto) Digoxin Salicylates Acetaminophen 06/30/19 06/30/19 07/01/19 05:11 11:52 04:30 WBC 13.2 H Hgb MCH 25 L RDW 18.4 H Plt Count 89 L [place] % (Auto) Lymph # Seg Neutrophils % Seg Neuts % (Manual) 95.0 H Lymphocytes % (Manual) 2.0 L Seg Neutrophils # Man 12.5 H Lymphocytes # (Manual) 0.3 L Monocytes # (Manual) D-Dimer ABG pH ABG pO2 ABG HCO3 ABG O2 Saturation ABG Base Excess ABG Hemoglobin Oxyhemoglobin Sodium Potassium Chloride Carbon Dioxide BUN Creatinine Glucose POC Glucose 151 H 136 H Calcium Magnesium Lactate Dehydrogenase CK-MB (CK-2) CK-MB (CK-2) Rel Index Albumin Ur Specific [place] Urine WBC (Auto) Digoxin Salicylates Acetaminophen 07/01/19 07/01/19 07/02/19 04:30 05:57 13:20 WBC Hgb MCH RDW Plt Count [place] % (Auto) Lymph # Seg Neutrophils % Seg Neuts % (Manual) Lymphocytes % (Manual) Seg Neutrophils # Man Lymphocytes # (Manual) Monocytes # (Manual) D-Dimer ABG pH ABG pO2 ABG HCO3 32.7 H ABG O2 Saturation ABG Base Excess 6.7 H ABG Hemoglobin 8.7 L Oxyhemoglobin 94.5 L Sodium Potassium Chloride 96.0 L Carbon Dioxide BUN 24 H Creatinine 0.2 L Glucose 113 H POC Glucose 124 H Calcium Magnesium Lactate Dehydrogenase CK-MB (CK-2) CK-MB (CK-2) Rel Index Albumin Ur Specific [place] Urine WBC (Auto) Digoxin Salicylates Acetaminophen 07/04/19 05:06 WBC Hgb MCH RDW Plt Count [place] % (Auto) Lymph # Seg Neutrophils % Seg Neuts % (Manual) Lymphocytes % (Manual) Seg Neutrophils # Man Lymphocytes # (Manual) Monocytes # (Manual) D-Dimer ABG pH ABG pO2 ABG HCO3 ABG O2 Saturation ABG Base Excess ABG Hemoglobin Oxyhemoglobin Sodium 136 L Potassium Chloride Carbon Dioxide BUN Creatinine 0.2 L Glucose POC Glucose Calcium 8.2 L Magnesium Lactate Dehydrogenase CK-MB (CK-2) CK-MB (CK-2) Rel Index Albumin Ur Specific [place] Urine WBC (Auto) Digoxin Salicylates Acetaminophen Allied health notes reviewed: nursing
--- NOTE | 2019-07-04 17:11 | Consultation ---
History of Present Illness Consult date: 07/04/19 Consult reason: tachycardia History of present illness: The patient is a 59-year-old woman who was brought to the hospital following a syncopal episode at home. It is unclear if she received any resuscitative therapies prior to arrival to the emergency room. In the emergency room, she was found to have a narrow complex tachycardia consistent with an AV node reentry tachycardia. She was treated in the emergency room with intravenous Cardizem, and has reverted to a stable sinus rhythm. The patient reports that she has had 2 prior episodes of syncope, but is uncertain if she has a previous diagnosis of SVT. She does follow with a criminal justice instructor on a regular basis and states that she had an echocardiogram and a stress test within the past year both negative. Currently she is comfortable, awake and alert and oriented x3, no cardiac complaints. Past History Past Medical History: arrhythmia (SVT now resolved), CAD, COPD Social history: smoking Medications and Allergies Allergies Allergy/AdvReac Type Severity Reaction Status Date / Time hydromorphone [From Dilaudid] Allergy Unknown Verified 09/28/18 21:25 phenobarbital Allergy Unknown Verified 09/28/18 21:25 Home Medications Medication Instructions Recorded Confirmed Last Taken Type Albuterol Sulfate [Proair 90 mcg IH Q4H PRN #1 pump 09/21/18 06/12/19 Unknown Rx Respiclick] Metoprolol [Lopressor TAB] 12.5 mg PO BID #60 tablet 11/27/18 06/12/19 06/09/19 Rx Nicotine [Habitrol] 14 mg TD QDAY #30 patch 11/27/18 06/12/19 Unknown Rx ALBUTEROL NEB's [Proventil 0.083% 2.5 mg IH Q4HRT PRN #15 nebu 03/05/19 06/12/19 Unknown Rx NEBS] ALPRAZolam [Xanax TAB] 0.25 mg PO Q8H PRN #15 tablet 03/05/19 06/12/19 Unknown Rx Acetaminophen [Acetaminophen TAB] 650 mg PO Q4H PRN tablet 03/05/19 06/12/19 Unknown Rx Arformoterol Nebu [Brovana Nebu] 15 mcg IH Q12HRT #30 ml 03/05/19 06/12/19 Unknown Rx Baclofen [Lioresal] 10 mg PO BID tablet 03/05/19 06/12/19 Unknown Rx Budesonide [Pulmicort Respules] 0.5 mg IH Q12HRT #30 nebu 03/05/19 06/12/19 Unknown Rx HYDROcodone/APAP 5-325 [[place] 1 each PO BID PRN #15 tablet 03/05/19 06/12/19 06/09/19 Rx 5-325 mg TAB] Lansoprazole Solutab [Prevacid 30 mg FEEDTUBE QDAY #30 tab.rapdis 03/05/19 06/12/19 Unknown Rx Solutab] Nitroglycerin [Nitrostat] 0.4 mg SL Q5M PRN #30 tab 03/05/19 06/12/19 Unknown Rx Potassium Chloride [K-Dur] 10 meq PO QDAY #30 tablet 03/05/19 06/12/19 Unknown Rx QUEtiapine [SEROquel] 300 mg PO BID tablet 03/05/19 06/12/19 06/09/19 Rx Venlafaxine [Effexor 25mg tab] 25 mg PO TID #90 tablet 03/05/19 06/12/19 06/09/19 Rx Venlafaxine [Effexor] 75 mg PO TID #90 tablet 03/05/19 06/12/19 06/02/19 Rx busPIRone [Buspar] 5 mg PO BID #60 tablet 03/05/19 06/12/19 06/09/19 Rx predniSONE [Deltasone] 40 mg PO QDAY #30 tablet 03/05/19 06/12/19 Unknown Rx Lisinopril [Zestril] 10 mg PO DAILY 06/10/19 06/12/19 Unknown History amLODIPine 5 mg PO DAILY 06/10/19 06/12/19 04/12/19 History Active Meds: Active Medications Acetaminophen (Tylenol) 650 mg PO Q4H PRN PRN Reason: Pain MILD(1-3)/Fever >100.5/PRAJAPATI Last Admin: 06/20/19 08:03 Dose: 650 mg Documented by: Albuterol (Proventil) 2.5 mg IH Q4HRT PRN PRN Reason: Shortness Of Breath Albuterol/Ipratropium (Duoneb *Not For Prn Use*) 1 ampul IH TIDRT DOMINICK Last Admin: 07/04/19 13:12 Dose: 1 ampul Documented by: Alprazolam (Xanax) 0.25 mg PO Q8H PRN PRN Reason: Anxiety Last Admin: 06/29/19 14:19 Dose: 0.25 mg Documented by: Amiodarone HCl (Cordarone) 100 mg PO QDAY [facility] Last Admin: 07/04/19 10:34 Dose: 100 mg Documented by: Arformoterol Tartrate (Brovana Nebu) 15 mcg IH Q12HRT [facility] Last Admin: 07/04/19 07:42 Dose: 15 mcg Documented by: Budesonide (Pulmicort) 0.5 mg IH Q12HRT [facility] Last Admin: 07/04/19 07:42 Dose: 0.5 mg Documented by: Dextrose (D50w (25gm) Syringe) 50 ml IV Q30MIN PRN; Protocol PRN Reason: Hypoglycemia Docusate Sodium (Colace) 100 mg PO BID [facility] Last Admin: 07/04/19 10:40 Dose: 100 mg Documented by: Hydralazine HCl (Apresoline) 10 mg IV Q4HR PRN PRN Reason: Hypertension Last Admin: 06/28/19 06:13 Dose: 10 mg Documented by: Hydrophilic Ointment (Vaseline Lip Therapy) 1 applic TP Q2HR PRN PRN Reason: Dry Lips Dextrose/Sodium Chloride (D5ns) 1,000 mls @ 42 mls/hr IV DIRECT [facility] Insulin Human Lispro (Humalog) 0 unit SUB-Q Q6HR [facility]; Protocol Last Admin: 07/04/19 06:20 Dose: Not Given Documented by: Lansoprazole (Prevacid Solutab) 30 mg FEEDTUBE QDAY [facility] Last Admin: 07/04/19 10:42 Dose: Not Given Documented by: Lorazepam (Ativan) 2 mg IV Q6H PRN PRN Reason: Agitation Last Admin: 07/01/19 09:04 Dose: 2 mg Documented by: Magnesium Hydroxide (Milk Of Magnesia) 30 ml PO QDAY PRN PRN Reason: Constipation Last Admin: 06/29/19 09:07 Dose: 30 ml Documented by: Metoprolol Tartrate (Metoprolol) 2.5 mg IV Q4H PRN PRN Reason: HR>130 Last Admin: 06/19/19 11:48 Dose: 2.5 mg Documented by: Multi-Ingred Cream/Lotion/Oil/Oint (Artificial Tears Ophth Oint) 1 applic OU Q4HR PRN PRN Reason: Dry Eye(s) Ondansetron HCl (Zofran) 4 mg IV Q8H PRN PRN Reason: Nausea And Vomiting Polyethylene Glycol (Miralax 3350) 17 gm PO BID PRN PRN Reason: Constipation Last Admin: 06/21/19 16:05 Dose: 17 gm Documented by: Prednisone (Deltasone) 5 mg PO QDAY [facility] Quetiapine Fumarate (Seroquel) 300 mg PO BID [facility] Last Admin: 07/04/19 10:34 Dose: 300 mg Documented by: Sodium Chloride (Sodium Chloride Flush Syringe 10 Ml) 10 ml IV BID [facility] Last Admin: 07/04/19 10:35 Dose: 10 ml Documented by: Sodium Chloride (Sodium Chloride Flush Syringe 10 Ml) 10 ml IV PRN PRN PRN Reason: LINE FLUSH Last Admin: 07/02/19 05:04 Dose: 10 ml Documented by: Venlafaxine HCl (Effexor) 75 mg PO TID [facility] Last Admin: 07/04/19 10:41 Dose: 75 mg Documented by: Review of Systems Cardiovascular: syncope, no chest pain, no orthopnea, no palpitations, no rapid/irregular heart beat, no edema, no lightheadedness, no shortness of breath Physical Examination Vital Signs Resp Pulse Ox 22 77 L 06/11/19 17:35 06/11/19 17:35 General appearance: no acute distress HEENT: Positive: PERRL Neck: Positive: neck supple Cardiac: Positive: Reg Rate and Rhythm Lungs: Positive: clear to auscultation Neuro: Positive: Grossly Intact Abdomen: Positive: Soft Female genitourinary: deferred Skin: Positive: Clear Extremities: Absent: edema Results 07/01/19 04:30 07/04/19 05:06 Comprehensive Metabolic Panel 07/04/19 Range/Units 05:06 Sodium 136 L (137-145) mmol/L Potassium 3.8 D (3.6-5.0) mmol/L Chloride 98.2 (98-107) mmol/L Carbon Dioxide 27 (22-30) mmol/L BUN 14 (7-17) mg/dL Creatinine 0.2 L (0.7-1.2) mg/dL Glucose 82 (65-100) mg/dL Calcium 8.2 L (8.4-10.2) mg/dL EKG interpretations - EKG Other supraventricular dysrythmias: orthodromic AV reentry Assessment and Plan - Patient Problems (1) Paroxysmal atrial flutter Current Visit: Yes Status: Acute
[2019-07-05] MEDS: INSULIN LISPRO 100 UNIT/ML SUB-Q SCH ×5 (07:34→18:28)
[2019-07-05] MEDS ORDERED: methylPREDNISolone Sod Succinate 125 MG/2 ML INJ IV SCH (08:00)
[2019-07-05] MEDS: IPRATROPIUM/ALBUTEROL SULFATE 3 ML AMPUL.NEB IH SCH ×3 (09:32→20:21)
[2019-07-05] MEDS: BUDESONIDE 0.5 MG/2 ML NEBU IH SCH ×2 (09:32→20:21)
[2019-07-05] MEDS: ARFORMOTEROL 15 MCG/2 ML NEBU IH SCH ×2 (09:32→20:21)
[2019-07-05] MEDS: QUEtiapine 100 MG TAB PO SCH ×2 (09:34→21:12)
[2019-07-05] MEDS: AMIODARONE 200 MG TAB PO SCH (09:34)
[2019-07-05] MEDS: DOCUSATE SODIUM 100 MG/10 ML ORAL LIQD PO SCH ×2 (09:34→21:12)
[2019-07-05] MEDS: predniSONE 5 MG TAB PO SCH (09:34)
[2019-07-05] MEDS: LANSOPRAZOLE 30 MG SOLUTAB FEEDTUBE SCH (09:34)
[2019-07-05] MEDS: VENLAFAXINE 25 MG TAB PO SCH ×3 (09:35→21:11)
--- NOTE | 2019-07-05 11:59 | Progress Note ---
Assessment and Plan Paroxysmal Atrial flutter/afib/MAT currently in sinus rhythm on amiodarone and diltiazem for suppression. not on anticoagulation secondary to history of melena and anemia. 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 She did undergo PCI of the mid LAD using bare metal stent. Recommend: Continue oral Cardizem and Amiodarone as tolerated for paroxysmal atrial flutter. Otherwise, conservative cardiac management. We will follow intermittently Subjective Date of service: 07/05/19 Principal diagnosis: Ac and ch hypoxic & hypercapnic resp failure; AE-COPD; Tobacco use disorder Interval history: Stable sinus rhythm on telemetry. No cardiac events reported. Objective Vital Signs Temp Pulse Pulse Pulse Pulse Pulse Pulse 07/05/19 10:08 107 H 07/05/19 10:01 109 H 07/05/19 09:32 07/05/19 09:00 93 H 07/05/19 08:00 98.8 F 100 H 97 H 97 H 97 H 97 H 07/05/19 07:00 96 H 07/05/19 06:00 96 H 07/05/19 05:01 94 H 07/05/19 04:00 98.6 F 101 H 07/05/19 03:56 96 H 96 H 96 H 96 H 07/05/19 03:00 99 H 07/05/19 02:00 95 H 07/05/19 01:00 97 H 07/05/19 00:00 98.3 F 102 H 77 77 77 07/04/19 23:00 99 H 07/04/19 22:00 92 H 07/04/19 21:21 87 07/04/19 21:10 07/04/19 21:01 93 H 07/04/19 20:00 98.0 F 76 96 H 96 H 96 H 96 H 07/04/19 19:48 76 07/04/19 19:00 87 07/04/19 18:00 96 H 07/04/19 17:00 93 H 07/04/19 16:01 96 H 07/04/19 16:00 97.9 F 93 H 96 H 96 H 96 H 96 H 07/04/19 15:00 98 H 07/04/19 14:00 95 H 07/04/19 13:12 952 H 07/04/19 13:00 96 H 07/04/19 12:00 97.8 F 97 H 93 H 93 H 93 H 93 H Pulse Resp Resp BP Pulse Ox 07/05/19 10:08 20 07/05/19 10:01 20 113/77 96 07/05/19 09:32 98 07/05/19 09:00 25 H 119/59 100 07/05/19 08:00 97 H 18 128/62 97 07/05/19 07:00 116/57 97 07/05/19 06:00 25 H 108/57 97 07/05/19 05:01 23 112/56 98 07/05/19 04:00 15 106/65 96 07/05/19 03:56 96 H 20 07/05/19 03:00 22 104/54 96 07/05/19 02:00 19 108/54 98 07/05/19 01:00 23 103/59 96 07/05/19 00:00 22 90/47 94 07/04/19 23:00 23 118/60 97 07/04/19 22:00 22 126/38 97 07/04/19 21:21 19 113/57 98 07/04/19 21:10 98 07/04/19 21:01 25 H 124/68 99 07/04/19 20:00 96 H 23 113/57 93 07/04/19 19:48 07/04/19 19:00 22 107/56 93 07/04/19 18:00 22 104/54 96 07/04/19 17:00 25 H 97/52 96 07/04/19 16:01 19 117/62 98 07/04/19 16:00 96 H 16 07/04/19 15:00 22 84/49 94 07/04/19 14:00 17 95/56 86 07/04/19 13:12 20 07/04/19 13:00 22 96/52 93 07/04/19 12:00 93 H 20 93/51 94 - Physical Examination General: No Apparent Distress Cardiac: Positive: Reg Rate and Rhythm - Allied health notes Allied health notes reviewed: nursing
--- NOTE | 2019-07-05 15:03 | Progress Note ---
Assessment and Plan /Acute hypoxic and hypercapnic on chronic respiratory failure: Required mechanical ventilation> 96 hours Due to acute COPD exacerbation and underlying pneumonia On nebs, steroids, supportive care Extubated 07/01, pulmonary following Continue oxygen saturation greater than 92% with nasal cannula /sepsis/pneumonia/sputum Pseudomonas 06/11/2019; present on admission ID following , treated with cefepime up to 14 days Sputum cultures again positive Pseudomonas on 06/19/2019 Negative for COVID-19 /Hypertension; moderate control Continue current antihypertensives and PRN hydralazine /Paroxysmal A. fib/flutter; RVR On amiodarone, digoxin and Cardizem Closely monitor, cardiology following-digoxin adjusted to 0.125 mg every other day per cardiology Changed amiodarone to 100 mg daily No chronic anticoagulation due to history of GI bleed /History of coronary artery disease/CHF EF 45-50% by echo 08/2018 Low-dose Lasix, continue other cardiac meds /Hypernatremia; resolved monitor sodium levels /History of depression; hold antidepressive medications for now as intubated /Ongoing tobacco use; Will student assistance counselor smoking cessation when patient is more stable /Obesity; BMI 32.2 Patient needs weight reduction when medically stable /Thrombocytopenia; HIT antibody negative --Tube feeding diet; per dietary recommendations --DVT prophylaxis; Lovenox --Full CODE STATUS Restraints in place. 07/01: patient extubated, on 5L o2 n/c, monitor at icu, cont nebs. 07/02: order PT eval, consulted speech. wean off O2 as tolerated. if clinically stable will transfer to tele tomorrow 07/03 transfer to tele, order PT/OT. pending speech eval 07/04; placed on pureed diet, wait for PT eval. on 2L n/c Brief history: 59-year-old female patient with significant history of hypertension GERD depression COPD coronary artery disease CHF was admitted through emergency room with acute hypoxic hypercapnic respiratory failure requiring intubation and ventilatory support. Admitted to ICU evaluated by pulmonary critical, cardiology for A. fib flutter with rapid ventricular rate, started on Cardizem and amiodarone. Not a candidate for anticoagulation due to history of severe GI bleeding. Patient had mild hypotension, improved with holding Blood pressure and diuretic meds. Sputum cultures positive for Pseudomonas, treated with cefepime, ID following. Patient is extubated on 07/01, continue to monitor Physical exam: General appearance: Present: no acute distress, well-nourished, obese, - EENT Eyes: Present: PERRL, EOM intact - Neck Neck: Present: supple, normal ROM - Respiratory Respiratory effort: normal Respiratory: bilateral: diminished, rhonchi, negative: rales, wheezing - Cardiovascular Rhythm: regular Heart Sounds: Present: S1 & S2 - Extremities Extremities: no ischemia, No edema - Abdominal General gastrointestinal: soft, non-tender, non-distended, normal bowel sounds - Integumentary Integumentary: Present: clear, warm - Psychiatric Psychiatric: other (Alert and awake ) - Neurologic Neurologic: No focal deficits Subjective Date of service: 07/05/19 Principal diagnosis: Ac and ch hypoxic & hypercapnic resp failure; AE-COPD; Tobacco use disorder Interval history: Patient seen and examined. Medical records and medication list reviewed. No acute event overnight noted by the RN. Patient appears to be alert and oriented Oxygen saturation well-maintained on nasal cannula Passed a speech eval for pured diet Objective - Constitutional Vitals: Vital Signs - 12hr 07/05/19 07/05/19 07/05/19 03:56 04:00 05:01 Temperature 98.6 F Pulse Rate 101 H 94 H Pulse Rate [ Bilateral] Pulse Rate [ 96 H From Monitor] Pulse Rate [ 96 H Left Dorsalis Pedis] Pulse Rate [ 96 H Left Radial] Pulse Rate [ 96 H Right Dorsalis Pedis] Pulse Rate [ 96 H Right Radial] Respiratory 20 15 23 Rate Respiratory Rate [Bilateral ] Blood Pressure 106/65 112/56 O2 Sat by Pulse 96 98 Oximetry 07/05/19 07/05/19 07/05/19 06:00 07:00 08:00 Temperature 98.8 F Pulse Rate 96 H 96 H 100 H Pulse Rate [ Bilateral] Pulse Rate [ 97 H From Monitor] Pulse Rate [ 97 H Left Dorsalis Pedis] Pulse Rate [ 97 H Left Radial] Pulse Rate [ 97 H Right Dorsalis Pedis] Pulse Rate [ 97 H Right Radial] Respiratory 25 H 18 Rate Respiratory Rate [Bilateral ] Blood Pressure 108/57 116/57 128/62 O2 Sat by Pulse 97 97 97 Oximetry 07/05/19 07/05/19 07/05/19 09:00 09:32 10:01 Temperature Pulse Rate 93 H 109 H Pulse Rate [ Bilateral] Pulse Rate [ From Monitor] Pulse Rate [ Left Dorsalis Pedis] Pulse Rate [ Left Radial] Pulse Rate [ Right Dorsalis Pedis] Pulse Rate [ Right Radial] Respiratory 25 H 20 Rate Respiratory Rate [Bilateral ] Blood Pressure 119/59 113/77 O2 Sat by Pulse 100 98 96 Oximetry 07/05/19 07/05/19 07/05/19 10:08 11:00 12:00 Temperature 98.7 F Pulse Rate 105 H 103 H Pulse Rate [ 107 H Bilateral] Pulse Rate [ From Monitor] Pulse Rate [ Left Dorsalis Pedis] Pulse Rate [ Left Radial] Pulse Rate [ Right Dorsalis Pedis] Pulse Rate [ Right Radial] Respiratory 27 H 26 H Rate Respiratory 20 Rate [Bilateral ] Blood Pressure 104/41 100/43 O2 Sat by Pulse 87 92 Oximetry 07/05/19 07/05/19 07/05/19 13:00 13:48 14:00 Temperature Pulse Rate 100 H 97 H Pulse Rate [ 98 H Bilateral] Pulse Rate [ From Monitor] Pulse Rate [ Left Dorsalis Pedis] Pulse Rate [ Left Radial] Pulse Rate [ Right Dorsalis Pedis] Pulse Rate [ Right Radial] Respiratory 18 22 Rate Respiratory 20 Rate [Bilateral ] Blood Pressure 102/42 115/49 O2 Sat by Pulse 95 94 Oximetry - Labs CBC & Chem 7: 07/01/19 04:30 07/06/19 04:51 HEART Score - HEART Score Troponin: Troponin T < 0.010 ng/mL (0.00-0.029) 06/12/19 05:09
--- NOTE | 2019-07-05 16:22 | Progress Note ---
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 POC Glucose 130 H 167 H 155 H Calcium Magnesium Lactate Dehydrogenase CK-MB (CK-2) CK-MB (CK-2) Rel Index Albumin Ur Specific [place] Urine WBC (Auto) Digoxin Salicylates Acetaminophen 06/26/19 06/26/19 06/27/19 12:02 23:57 05:54 WBC Hgb MCH RDW Plt Count [place] % (Auto) Lymph # Seg Neutrophils % Seg Neuts % (Manual) Lymphocytes % (Manual) Seg Neutrophils # Man Lymphocytes # (Manual) Monocytes # (Manual) D-Dimer ABG pH ABG pO2 ABG HCO3 ABG O2 Saturation ABG Base Excess ABG Hemoglobin Oxyhemoglobin Sodium Potassium Chloride Carbon Dioxide BUN Creatinine Glucose POC Glucose 130 H 155 H 152 H Calcium Magnesium Lactate Dehydrogenase CK-MB (CK-2) CK-MB (CK-2) Rel Index Albumin Ur Specific [place] Urine WBC (Auto) Digoxin Salicylates Acetaminophen 06/27/19 06/27/19 06/27/19 12:09 13:41 13:41 WBC 15.0 H Hgb 10.0 L MCH 25 L RDW 17.9 H Plt Count 114 L [place] % (Auto) Lymph # Seg Neutrophils % Seg Neuts % (Manual) 98.0 H Lymphocytes % (Manual) 0 L Seg Neutrophils # Man 14.7 H Lymphocytes # (Manual) 0.0 L Monocytes # (Manual) D-Dimer ABG pH ABG pO2 ABG HCO3 ABG O2 Saturation ABG Base Excess ABG Hemoglobin Oxyhemoglobin Sodium 135 L Potassium Chloride 96.5 L Carbon Dioxide BUN 21 H Creatinine 0.2 L Glucose 161 H POC Glucose 150 H Calcium Magnesium Lactate Dehydrogenase CK-MB (CK-2) CK-MB (CK-2) Rel Index Albumin Ur Specific [place] Urine WBC (Auto) Digoxin Salicylates Acetaminophen 06/27/19 06/28/19 06/28/19 18:03 00:22 00:58 WBC 16.2 H Hgb MCH 25 L RDW 18.2 H Plt Count 130 L [place] % (Auto) Lymph # Seg Neutrophils % Seg Neuts % (Manual) 98.0 H Lymphocytes % (Manual) 0 L Seg Neutrophils # Man 15.9 H Lymphocytes # (Manual) 0.0 L Monocytes # (Manual) D-Dimer ABG pH ABG pO2 ABG HCO3 ABG O2 Saturation ABG Base Excess ABG Hemoglobin Oxyhemoglobin Sodium Potassium Chloride Carbon Dioxide BUN Creatinine Glucose POC Glucose 156 H 150 H Calcium Magnesium Lactate Dehydrogenase CK-MB (CK-2) CK-MB (CK-2) Rel Index Albumin Ur Specific [place] Urine WBC (Auto) Digoxin Salicylates Acetaminophen 06/28/19 06/28/19 06/28/19 00:58 05:19 12:14 WBC Hgb MCH RDW Plt Count [place] % (Auto) Lymph # Seg Neutrophils % Seg Neuts % (Manual) Lymphocytes % (Manual) Seg Neutrophils # Man Lymphocytes # (Manual) Monocytes # (Manual) D-Dimer ABG pH ABG pO2 ABG HCO3 ABG O2 Saturation ABG Base Excess ABG Hemoglobin Oxyhemoglobin Sodium Potassium Chloride 96.5 L Carbon Dioxide 32 H BUN 21 H Creatinine 0.2 L Glucose 140 H POC Glucose 122 H 137 H Calcium Magnesium Lactate Dehydrogenase CK-MB (CK-2) CK-MB (CK-2) Rel Index Albumin Ur Specific [place] Urine WBC (Auto) Digoxin Salicylates Acetaminophen 06/28/19 06/28/19 06/29/19 12:20 17:06 00:20 WBC Hgb MCH RDW Plt Count [place] % (Auto) Lymph # Seg Neutrophils % Seg Neuts % (Manual) Lymphocytes % (Manual) Seg Neutrophils # Man Lymphocytes # (Manual) Monocytes # (Manual) D-Dimer ABG pH 7.464 H ABG pO2 64.2 L ABG HCO3 33.4 H ABG O2 Saturation 93.7 L ABG Base Excess 8.6 H ABG Hemoglobin 11.2 L Oxyhemoglobin 92.0 L Sodium Potassium Chloride Carbon Dioxide BUN Creatinine Glucose POC Glucose 154 H 156 H Calcium Magnesium Lactate Dehydrogenase CK-MB (CK-2) CK-MB (CK-2) Rel Index Albumin Ur Specific [place] Urine WBC (Auto) Digoxin Salicylates Acetaminophen 06/29/19 06/29/19 06/29/19 05:10 05:31 05:31 WBC 14.3 H Hgb MCH 25 L RDW 18.6 H Plt Count 122 L [place] % (Auto) Lymph # Seg Neutrophils % Seg Neuts % (Manual) 96.0 H Lymphocytes % (Manual) 1.0 L Seg Neutrophils # Man 13.7 H Lymphocytes # (Manual) 0.1 L Monocytes # (Manual) D-Dimer ABG pH ABG pO2 ABG HCO3 ABG O2 Saturation ABG Base Excess ABG Hemoglobin Oxyhemoglobin Sodium Potassium Chloride 95.6 L Carbon Dioxide BUN 26 H Creatinine 0.2 L Glucose 135 H POC Glucose 139 H Calcium Magnesium Lactate Dehydrogenase CK-MB (CK-2) CK-MB (CK-2) Rel Index Albumin Ur Specific [place] Urine WBC (Auto) Digoxin Salicylates Acetaminophen 06/29/19 06/29/19 06/30/19 12:26 18:10 00:41 WBC Hgb MCH RDW Plt Count [place] % (Auto) Lymph # Seg Neutrophils % Seg Neuts % (Manual) Lymphocytes % (Manual) Seg Neutrophils # Man Lymphocytes # (Manual) Monocytes # (Manual) D-Dimer ABG pH ABG pO2 ABG HCO3 ABG O2 Saturation ABG Base Excess ABG Hemoglobin Oxyhemoglobin Sodium Potassium Chloride Carbon Dioxide BUN Creatinine Glucose POC Glucose 144 H 153 H 127 H Calcium Magnesium Lactate Dehydrogenase CK-MB (CK-2) CK-MB (CK-2) Rel Index Albumin Ur Specific [place] Urine WBC (Auto) Digoxin Salicylates Acetaminophen 06/30/19 06/30/19 07/01/19 05:11 11:52 04:30 WBC 13.2 H Hgb MCH 25 L RDW 18.4 H Plt Count 89 L [place] % (Auto) Lymph # Seg Neutrophils % Seg Neuts % (Manual) 95.0 H Lymphocytes % (Manual) 2.0 L Seg Neutrophils # Man 12.5 H Lymphocytes # (Manual) 0.3 L Monocytes # (Manual) D-Dimer ABG pH ABG pO2 ABG HCO3 ABG O2 Saturation ABG Base Excess ABG Hemoglobin Oxyhemoglobin Sodium Potassium Chloride Carbon Dioxide BUN Creatinine Glucose POC Glucose 151 H 136 H Calcium Magnesium Lactate Dehydrogenase CK-MB (CK-2) CK-MB (CK-2) Rel Index Albumin Ur Specific [place] Urine WBC (Auto) Digoxin Salicylates Acetaminophen 07/01/19 07/01/19 07/02/19 04:30 05:57 13:20 WBC Hgb MCH RDW Plt Count [place] % (Auto) Lymph # Seg Neutrophils % Seg Neuts % (Manual) Lymphocytes % (Manual) Seg Neutrophils # Man Lymphocytes # (Manual) Monocytes # (Manual) D-Dimer ABG pH ABG pO2 ABG HCO3 32.7 H ABG O2 Saturation ABG Base Excess 6.7 H ABG Hemoglobin 8.7 L Oxyhemoglobin 94.5 L Sodium Potassium Chloride 96.0 L Carbon Dioxide BUN 24 H Creatinine 0.2 L Glucose 113 H POC Glucose 124 H Calcium Magnesium Lactate Dehydrogenase CK-MB (CK-2) CK-MB (CK-2) Rel Index Albumin Ur Specific [place] Urine WBC (Auto) Digoxin Salicylates Acetaminophen 07/04/19 05:06 WBC Hgb MCH RDW Plt Count [place] % (Auto) Lymph # Seg Neutrophils % Seg Neuts % (Manual) Lymphocytes % (Manual) Seg Neutrophils # Man Lymphocytes # (Manual) Monocytes # (Manual) D-Dimer ABG pH ABG pO2 ABG HCO3 ABG O2 Saturation ABG Base Excess ABG Hemoglobin Oxyhemoglobin Sodium 136 L Potassium Chloride Carbon Dioxide BUN Creatinine 0.2 L Glucose POC Glucose Calcium 8.2 L Magnesium Lactate Dehydrogenase CK-MB (CK-2) CK-MB (CK-2) Rel Index Albumin Ur Specific [place] Urine WBC (Auto) Digoxin Salicylates Acetaminophen Allied health notes reviewed: RT
[2019-07-05] MEDS: dilTIAZem 30 MG TAB PO SCH ×2 (16:32→21:13)
[2019-07-05] MEDS: HYDROcodone/ACETAMINOPHEN 5-325 MG TAB PO PRN (16:49)
[2019-07-06] MEDS: INSULIN LISPRO 100 UNIT/ML SUB-Q SCH ×3 (00:55→13:47)
[2019-07-06] MEDS: LORazepam 2 MG/ML VIAL IV PRN (01:47)
[2019-07-06 06:02] LABS: BUN/Creatinine Ratio 55; Blood Urea Nitrogen 11 mg/dL (7-17); Calcium 8.2 mg/dL (8.4-10.2); Hemolysis Index 23
[2019-07-06] MEDS: HYDROcodone/ACETAMINOPHEN 5-325 MG TAB PO PRN (06:44)
[2019-07-06] MEDS: dilTIAZem 30 MG TAB PO SCH ×3 (06:44→21:42)
[2019-07-06] MEDS: ARFORMOTEROL 15 MCG/2 ML NEBU IH SCH ×2 (09:18→19:34)
[2019-07-06] MEDS: IPRATROPIUM/ALBUTEROL SULFATE 3 ML AMPUL.NEB IH SCH ×3 (09:18→19:34)
[2019-07-06] MEDS: BUDESONIDE 0.5 MG/2 ML NEBU IH SCH ×2 (09:18→19:34)
[2019-07-06] MEDS: QUEtiapine 100 MG TAB PO SCH ×2 (10:38→21:43)
[2019-07-06] MEDS: DOCUSATE SODIUM 100 MG/10 ML ORAL LIQD PO SCH ×2 (10:38→21:43)
[2019-07-06] MEDS: VENLAFAXINE 25 MG TAB PO SCH (10:39)
[2019-07-06] MEDS: LANSOPRAZOLE 30 MG SOLUTAB FEEDTUBE SCH (10:39)
[2019-07-06] MEDS: AMIODARONE 200 MG TAB PO SCH (10:39)
[2019-07-06] MEDS: predniSONE 5 MG TAB PO SCH (10:39)
--- NOTE | 2019-07-06 11:58 | Progress Note ---
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 Seg Neuts % (Manual) 98.0 H Lymphocytes % (Manual) 0 L Seg Neutrophils # Man 14.7 H Lymphocytes # (Manual) 0.0 L Monocytes # (Manual) D-Dimer ABG pH ABG pO2 ABG HCO3 ABG O2 Saturation ABG Base Excess ABG Hemoglobin Oxyhemoglobin Sodium 135 L Potassium Chloride 96.5 L Carbon Dioxide BUN 21 H Creatinine 0.2 L Glucose 161 H POC Glucose 150 H Calcium Magnesium Lactate Dehydrogenase CK-MB (CK-2) CK-MB (CK-2) Rel Index Albumin Ur Specific Pierce Urine WBC (Auto) Digoxin Salicylates Acetaminophen 06/27/19 06/28/19 06/28/19 18:03 00:22 00:58 WBC 16.2 H Hgb MCH 25 L RDW 18.2 H Plt Count 130 L [place] % (Auto) Lymph # Seg Neutrophils % Seg Neuts % (Manual) 98.0 H Lymphocytes % (Manual) 0 L Seg Neutrophils # Man 15.9 H Lymphocytes # (Manual) 0.0 L Monocytes # (Manual) D-Dimer ABG pH ABG pO2 ABG HCO3 ABG O2 Saturation ABG Base Excess ABG Hemoglobin Oxyhemoglobin Sodium Potassium Chloride Carbon Dioxide BUN Creatinine Glucose POC Glucose 156 H 150 H Calcium Magnesium Lactate Dehydrogenase CK-MB (CK-2) CK-MB (CK-2) Rel Index Albumin Ur Specific Pierce Urine WBC (Auto) Digoxin Salicylates Acetaminophen 06/28/19 06/28/19 06/28/19 00:58 05:19 12:14 WBC Hgb MCH RDW Plt Count [place] % (Auto) Lymph # Seg Neutrophils % Seg Neuts % (Manual) Lymphocytes % (Manual) Seg Neutrophils # Man Lymphocytes # (Manual) Monocytes # (Manual) D-Dimer ABG pH ABG pO2 ABG HCO3 ABG O2 Saturation ABG Base Excess ABG Hemoglobin Oxyhemoglobin Sodium Potassium Chloride 96.5 L Carbon Dioxide 32 H BUN 21 H Creatinine 0.2 L Glucose 140 H POC Glucose 122 H 137 H Calcium Magnesium Lactate Dehydrogenase CK-MB (CK-2) CK-MB (CK-2) Rel Index Albumin Ur Specific [place] Urine WBC (Auto) Digoxin Salicylates Acetaminophen 06/28/19 06/28/19 06/29/19 12:20 17:06 00:20 WBC Hgb MCH RDW Plt Count [place] % (Auto) Lymph # Seg Neutrophils % Seg Neuts % (Manual) Lymphocytes % (Manual) Seg Neutrophils # Man Lymphocytes # (Manual) Monocytes # (Manual) D-Dimer ABG pH 7.464 H ABG pO2 64.2 L ABG HCO3 33.4 H ABG O2 Saturation 93.7 L ABG Base Excess 8.6 H ABG Hemoglobin 11.2 L Oxyhemoglobin 92.0 L Sodium Potassium Chloride Carbon Dioxide BUN Creatinine Glucose POC Glucose 154 H 156 H Calcium Magnesium Lactate Dehydrogenase CK-MB (CK-2) CK-MB (CK-2) Rel Index Albumin Ur Specific [place] Urine WBC (Auto) Digoxin Salicylates Acetaminophen 06/29/19 06/29/19 06/29/19 05:10 05:31 05:31 WBC 14.3 H Hgb MCH 25 L RDW 18.6 H Plt Count 122 L [place] % (Auto) Lymph # Seg Neutrophils % Seg Neuts % (Manual) 96.0 H Lymphocytes % (Manual) 1.0 L Seg Neutrophils # Man 13.7 H Lymphocytes # (Manual) 0.1 L Monocytes # (Manual) D-Dimer ABG pH ABG pO2 ABG HCO3 ABG O2 Saturation ABG Base Excess ABG Hemoglobin Oxyhemoglobin Sodium Potassium Chloride 95.6 L Carbon Dioxide BUN 26 H Creatinine 0.2 L Glucose 135 H POC Glucose 139 H Calcium Magnesium Lactate Dehydrogenase CK-MB (CK-2) CK-MB (CK-2) Rel Index Albumin Ur Specific [place] Urine WBC (Auto) Digoxin Salicylates Acetaminophen 06/29/19 06/29/19 06/30/19 12:26 18:10 00:41 WBC Hgb MCH RDW Plt Count [place] % (Auto) Lymph # Seg Neutrophils % Seg Neuts % (Manual) Lymphocytes % (Manual) Seg Neutrophils # Man Lymphocytes # (Manual) Monocytes # (Manual) D-Dimer ABG pH ABG pO2 ABG HCO3 ABG O2 Saturation ABG Base Excess ABG Hemoglobin Oxyhemoglobin Sodium Potassium Chloride Carbon Dioxide BUN Creatinine Glucose POC Glucose 144 H 153 H 127 H Calcium Magnesium Lactate Dehydrogenase CK-MB (CK-2) CK-MB (CK-2) Rel Index Albumin Ur Specific [place] Urine WBC (Auto) Digoxin Salicylates Acetaminophen 06/30/19 06/30/19 07/01/19 05:11 11:52 04:30 WBC 13.2 H Hgb MCH 25 L RDW 18.4 H Plt Count 89 L [place] % (Auto) Lymph # Seg Neutrophils % Seg Neuts % (Manual) 95.0 H Lymphocytes % (Manual) 2.0 L Seg Neutrophils # Man 12.5 H Lymphocytes # (Manual) 0.3 L Monocytes # (Manual) D-Dimer ABG pH ABG pO2 ABG HCO3 ABG O2 Saturation ABG Base Excess ABG Hemoglobin Oxyhemoglobin Sodium Potassium Chloride Carbon Dioxide BUN Creatinine Glucose POC Glucose 151 H 136 H Calcium Magnesium Lactate Dehydrogenase CK-MB (CK-2) CK-MB (CK-2) Rel Index Albumin Ur Specific [place] Urine WBC (Auto) Digoxin Salicylates Acetaminophen 07/01/19 07/01/19 07/01/19 04:30 05:57 12:35 WBC Hgb MCH RDW Plt Count [place] % (Auto) Lymph # Seg Neutrophils % Seg Neuts % (Manual) Lymphocytes % (Manual) Seg Neutrophils # Man Lymphocytes # (Manual) Monocytes # (Manual) D-Dimer ABG pH ABG pO2 ABG HCO3 ABG O2 Saturation ABG Base Excess ABG Hemoglobin Oxyhemoglobin Sodium Potassium Chloride 96.0 L Carbon Dioxide BUN 24 H Creatinine 0.2 L Glucose 113 H POC Glucose 124 H 119 H Calcium Magnesium Lactate Dehydrogenase CK-MB (CK-2) CK-MB (CK-2) Rel Index Albumin Ur Specific [place] Urine WBC (Auto) Digoxin Salicylates Acetaminophen 07/01/19 07/01/19 07/02/19 18:16 20:25 00:29 WBC Hgb MCH RDW Plt Count [place] % (Auto) Lymph # Seg Neutrophils % Seg Neuts % (Manual) Lymphocytes % (Manual) Seg Neutrophils # Man Lymphocytes # (Manual) Monocytes # (Manual) D-Dimer ABG pH ABG pO2 ABG HCO3 ABG O2 Saturation ABG Base Excess ABG Hemoglobin Oxyhemoglobin Sodium Potassium Chloride Carbon Dioxide BUN Creatinine Glucose POC Glucose 135 H 121 H 112 H Calcium Magnesium Lactate Dehydrogenase CK-MB (CK-2) CK-MB (CK-2) Rel Index Albumin Ur Specific [place] Urine WBC (Auto) Digoxin Salicylates Acetaminophen 07/02/19 07/02/19 07/02/19 05:34 13:18 13:20 WBC Hgb MCH RDW Plt Count [place] % (Auto) Lymph # Seg Neutrophils % Seg Neuts % (Manual) Lymphocytes % (Manual) Seg Neutrophils # Man Lymphocytes # (Manual) Monocytes # (Manual) D-Dimer ABG pH ABG pO2 ABG HCO3 32.7 H ABG O2 Saturation ABG Base Excess 6.7 H ABG Hemoglobin 8.7 L Oxyhemoglobin 94.5 L Sodium Potassium Chloride Carbon Dioxide BUN Creatinine Glucose POC Glucose 114 H 118 H Calcium Magnesium Lactate Dehydrogenase CK-MB (CK-2) CK-MB (CK-2) Rel Index Albumin Ur Specific [place] Urine WBC (Auto) Digoxin Salicylates Acetaminophen 07/04/19 07/04/19 07/04/19 05:06 11:34 17:40 WBC Hgb MCH RDW Plt Count [place] % (Auto) Lymph # Seg Neutrophils % Seg Neuts % (Manual) Lymphocytes % (Manual) Seg Neutrophils # Man Lymphocytes # (Manual) Monocytes # (Manual) D-Dimer ABG pH ABG pO2 ABG HCO3 ABG O2 Saturation ABG Base Excess ABG Hemoglobin Oxyhemoglobin Sodium 136 L Potassium Chloride Carbon Dioxide BUN Creatinine 0.2 L Glucose POC Glucose 106 H 150 H Calcium 8.2 L Magnesium Lactate Dehydrogenase CK-MB (CK-2) CK-MB (CK-2) Rel Index Albumin Ur Specific [place] Urine WBC (Auto) Digoxin Salicylates Acetaminophen 07/04/19 07/05/19 07/05/19 23:50 12:03 17:51 WBC Hgb MCH RDW Plt Count [place] % (Auto) Lymph # Seg Neutrophils % Seg Neuts % (Manual) Lymphocytes % (Manual) Seg Neutrophils # Man Lymphocytes # (Manual) Monocytes # (Manual) D-Dimer ABG pH ABG pO2 ABG HCO3 ABG O2 Saturation ABG Base Excess ABG Hemoglobin Oxyhemoglobin Sodium Potassium Chloride Carbon Dioxide BUN Creatinine Glucose POC Glucose 106 H 139 H 156 H Calcium Magnesium Lactate Dehydrogenase CK-MB (CK-2) CK-MB (CK-2) Rel Index Albumin Ur Specific [place] Urine WBC (Auto) Digoxin Salicylates Acetaminophen 07/06/19 04:51 WBC Hgb MCH RDW Plt Count [place] % (Auto) Lymph # Seg Neutrophils % Seg Neuts % (Manual) Lymphocytes % (Manual) Seg Neutrophils # Man Lymphocytes # (Manual) Monocytes # (Manual) D-Dimer ABG pH ABG pO2 ABG HCO3 ABG O2 Saturation ABG Base Excess ABG Hemoglobin Oxyhemoglobin Sodium Potassium Chloride Carbon Dioxide BUN Creatinine 0.2 L Glucose POC Glucose Calcium 8.2 L Magnesium Lactate Dehydrogenase CK-MB (CK-2) CK-MB (CK-2) Rel Index Albumin Ur Specific [place] Urine WBC (Auto) Digoxin Salicylates Acetaminophen Allied health notes reviewed: nursing
[2019-07-06] MEDS: VENLAFAXINE 75 MG TAB PO SCH ×2 (13:47→20:12)
--- NOTE | 2019-07-06 17:07 | Progress Note ---
Assessment and Plan /Acute hypoxic and hypercapnic on chronic respiratory failure: Required mechanical ventilation> 96 hours Due to acute COPD exacerbation and underlying pneumonia On nebs, steroids, supportive care Extubated 07/01, pulmonary following Continue oxygen saturation greater than 92% with nasal cannula /sepsis/pneumonia/sputum Pseudomonas 06/11/2019; present on admission ID following , treated with cefepime up to 14 days Sputum cultures again positive Pseudomonas on 06/19/2019 Negative for COVID-19 /Hypertension; moderate control Continue current antihypertensives and PRN hydralazine /Paroxysmal A. fib/flutter; RVR On amiodarone, digoxin and Cardizem Closely monitor, cardiology following-digoxin adjusted to 0.125 mg every other day per cardiology Changed amiodarone to 100 mg daily No chronic anticoagulation due to history of GI bleed /History of coronary artery disease/CHF EF 45-50% by echo 08/2018 Low-dose Lasix, continue other cardiac meds /Hypernatremia; resolved monitor sodium levels /History of depression; hold antidepressive medications for now as intubated /Ongoing tobacco use; Will trauma counsellor smoking cessation when patient is more stable /Obesity; BMI 32.2 Patient needs weight reduction when medically stable /Thrombocytopenia; HIT antibody negative --Tube feeding diet; per dietary recommendations --DVT prophylaxis; Lovenox --Full CODE STATUS Restraints in place. 07/01: patient extubated, on 5L o2 n/c, monitor at icu, cont nebs. 07/02: order PT eval, consulted speech. wean off O2 as tolerated. if clinically stable will transfer to tele tomorrow 07/03 transfer to tele, order PT/OT. pending speech eval 07/04; placed on pureed diet, wait for PT eval. on 2L n/c 07/05: Pending PT eval Brief history: 59-year-old female patient with significant history of hypertension GERD dep ression COPD coronary artery disease CHF was admitted through emergency room with acute hypoxic hypercapnic respiratory failure requiring intubation and ventilatory support. Admitted to ICU evaluated by pulmonary critical, cardiology for A. fib flutter with rapid ventricular rate, started on Cardizem and amiodarone. Not a candidate for anticoagulation due to history of severe GI bleeding. Patient had mild hypotension, improved with holding Blood pressure and diuretic meds. Sputum cultures positive for Pseudomonas, treated with cefepime, ID following. Patient is extubated on 07/01, continue to monitor Physical exam: General appearance: Present: no acute distress, well-nourished, obese, - EENT Eyes: Present: PERRL, EOM intact - Neck Neck: Present: supple, normal ROM - Respiratory Respiratory effort: normal Respiratory: bilateral: diminished, rhonchi, negative: rales, wheezing - Cardiovascular Rhythm: regular Heart Sounds: Present: S1 & S2 - Extremities Extremities: no ischemia, No edema - Abdominal General gastrointestinal: soft, non-tender, non-distended, normal bowel sounds - Integumentary Integumentary: Present: clear, warm - Psychiatric Psychiatric: other (Alert and awake ) - Neurologic Neurologic: No focal deficits Subjective Date of service: 07/06/19 Principal diagnosis: Ac and ch hypoxic & hypercapnic resp failure; AE-COPD; Tobacco use disorder Interval history: Patient seen and examined. Medical records and medication list reviewed. No acute event overnight noted by the RN. Patient appears to be alert and oriented Oxygen saturation well-maintained on nasal cannula tolerating pured diet Objective - Constitutional Vitals: Vital Signs - 12hr 07/06/19 07/06/19 07/06/19 06:00 06:44 07:00 Temperature Pulse Rate 104 H 109 H 103 H Pulse Rate [ Bilateral] Pulse Rate [ From Monitor] Respiratory 28 H 22 29 H Rate Respiratory Rate [Bilateral ] Blood Pressure 135/64 135/64 135/64 O2 Sat by Pulse 87 Oximetry 07/06/19 07/06/19 07/06/19 08:00 09:00 09:24 Temperature 98.6 F Pulse Rate 108 H 98 H Pulse Rate [ 102 H Bilateral] Pulse Rate [ 99 H From Monitor] Respiratory 21 22 Rate Respiratory 18 Rate [Bilateral ] Blood Pressure 121/61 113/47 O2 Sat by Pulse 100 92 Oximetry 07/06/19 07/06/19 07/06/19 09:25 10:00 11:00 Temperature Pulse Rate 109 H 97 H Pulse Rate [ Bilateral] Pulse Rate [ From Monitor] Respiratory 21 18 Rate Respiratory Rate [Bilateral ] Blood Pressure 108/55 100/73 O2 Sat by Pulse 98 Oximetry 07/06/19 07/06/19 07/06/19 12:00 13:00 13:33 Temperature 98.7 F Pulse Rate 89 97 H Pulse Rate [ 102 H Bilateral] Pulse Rate [ 101 H From Monitor] Respiratory 21 29 H Rate Respiratory 22 Rate [Bilateral ] Blood Pressure 100/73 101/57 O2 Sat by Pulse 100 Oximetry 07/06/19 07/06/19 07/06/19 13:48 14:00 15:00 Temperature Pulse Rate 110 H 107 H 98 H Pulse Rate [ Bilateral] Pulse Rate [ From Monitor] Respiratory 18 22 Rate Respiratory Rate [Bilateral ] Blood Pressure 101/57 101/57 102/49 O2 Sat by Pulse 79 L Oximetry 07/06/19 16:00 Temperature Pulse Rate 91 H Pulse Rate [ Bilateral] Pulse Rate [ 95 H From Monitor] Respiratory 22 Rate Respiratory Rate [Bilateral ] Blood Pressure 96/43 O2 Sat by Pulse 85 Oximetry - Labs CBC & Chem 7: 07/01/19 04:30 07/06/19 04:51 Labs: Abnormal lab results 07/01/19 07/01/19 07/01/19 Range/Units 12:35 18:16 20:25 Creatinine (0.7-1.2) mg/dL POC Glucose 119 H 135 H 121 H (70-105) Calcium (8.4-10.2) mg/dL 07/02/19 07/02/19 07/02/19 Range/Units 00:29 05:34 13:18 Creatinine (0.7-1.2) mg/dL POC Glucose 112 H 114 H 118 H (70-105) Calcium (8.4-10.2) mg/dL 07/04/19 07/04/19 07/04/19 Range/Units 11:34 17:40 23:50 Creatinine (0.7-1.2) mg/dL POC Glucose 106 H 150 H 106 H (70-105) Calcium (8.4-10.2) mg/dL 07/05/19 07/05/19 07/06/19 Range/Units 12:03 17:51 04:51 Creatinine 0.2 L (0.7-1.2) mg/dL POC Glucose 139 H 156 H (70-105) Calcium 8.2 L (8.4-10.2) mg/dL HEART Score - HEART Score Troponin: Troponin T < 0.010 ng/mL (0.00-0.029) 06/12/19 05:09
[2019-07-07] MEDS: HYDROcodone/ACETAMINOPHEN 5-325 MG TAB PO PRN ×3 (02:51→21:39)
[2019-07-07] MEDS: INSULIN LISPRO 100 UNIT/ML SUB-Q SCH ×5 (06:40→18:10)
[2019-07-07] MEDS: dilTIAZem 30 MG TAB PO SCH ×3 (06:41→21:39)
[2019-07-07] MEDS: BUDESONIDE 0.5 MG/2 ML NEBU IH SCH ×2 (09:34→20:56)
[2019-07-07] MEDS: IPRATROPIUM/ALBUTEROL SULFATE 3 ML AMPUL.NEB IH SCH ×3 (09:34→20:57)
[2019-07-07] MEDS: ARFORMOTEROL 15 MCG/2 ML NEBU IH SCH ×2 (09:34→20:56)
[2019-07-07] MEDS: LANSOPRAZOLE 30 MG SOLUTAB FEEDTUBE SCH (10:25)
[2019-07-07] MEDS: predniSONE 5 MG TAB PO SCH (10:25)
[2019-07-07] MEDS: DOCUSATE SODIUM 100 MG/10 ML ORAL LIQD PO SCH ×2 (10:25→21:40)
[2019-07-07] MEDS: VENLAFAXINE 75 MG TAB PO SCH ×3 (10:26→21:39)
[2019-07-07] MEDS: QUEtiapine 100 MG TAB PO SCH ×2 (10:27→21:39)
[2019-07-07] MEDS: AMIODARONE 200 MG TAB PO SCH (10:36)
--- NOTE | 2019-07-07 14:01 | Progress Note ---
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 CK-MB (CK-2) CK-MB (CK-2) Rel Index Albumin Ur Specific [place] Urine WBC (Auto) Digoxin Salicylates Acetaminophen 06/27/19 06/27/19 06/27/19 12:09 13:41 13:41 WBC 15.0 H Hgb 10.0 L MCH 25 L RDW 17.9 H Plt Count 114 L [place] % (Auto) Lymph # Seg Neutrophils % Seg Neuts % (Manual) 98.0 H Lymphocytes % (Manual) 0 L Seg Neutrophils # Man 14.7 H Lymphocytes # (Manual) 0.0 L Monocytes # (Manual) D-Dimer ABG pH ABG pO2 ABG HCO3 ABG O2 Saturation ABG Base Excess ABG Hemoglobin Oxyhemoglobin Sodium 135 L Potassium Chloride 96.5 L Carbon Dioxide BUN 21 H Creatinine 0.2 L Glucose 161 H POC Glucose 150 H Calcium Magnesium Lactate Dehydrogenase CK-MB (CK-2) CK-MB (CK-2) Rel Index Albumin Ur Specific [place] Urine WBC (Auto) Digoxin Salicylates Acetaminophen 06/27/19 06/28/19 06/28/19 18:03 00:22 00:58 WBC 16.2 H Hgb MCH 25 L RDW 18.2 H Plt Count 130 L [place] % (Auto) Lymph # Seg Neutrophils % Seg Neuts % (Manual) 98.0 H Lymphocytes % (Manual) 0 L Seg Neutrophils # Man 15.9 H Lymphocytes # (Manual) 0.0 L Monocytes # (Manual) D-Dimer ABG pH ABG pO2 ABG HCO3 ABG O2 Saturation ABG Base Excess ABG Hemoglobin Oxyhemoglobin Sodium Potassium Chloride Carbon Dioxide BUN Creatinine Glucose POC Glucose 156 H 150 H Calcium Magnesium Lactate Dehydrogenase CK-MB (CK-2) CK-MB (CK-2) Rel Index Albumin Ur Specific [place] Urine WBC (Auto) Digoxin Salicylates Acetaminophen 06/28/19 06/28/19 06/28/19 00:58 05:19 12:14 WBC Hgb MCH RDW Plt Count [place] % (Auto) Lymph # Seg Neutrophils % Seg Neuts % (Manual) Lymphocytes % (Manual) Seg Neutrophils # Man Lymphocytes # (Manual) Monocytes # (Manual) D-Dimer ABG pH ABG pO2 ABG HCO3 ABG O2 Saturation ABG Base Excess ABG Hemoglobin Oxyhemoglobin Sodium Potassium Chloride 96.5 L Carbon Dioxide 32 H BUN 21 H Creatinine 0.2 L Glucose 140 H POC Glucose 122 H 137 H Calcium Magnesium Lactate Dehydrogenase CK-MB (CK-2) CK-MB (CK-2) Rel Index Albumin Ur Specific [place] Urine WBC (Auto) Digoxin Salicylates Acetaminophen 06/28/19 06/28/19 06/29/19 12:20 17:06 00:20 WBC Hgb MCH RDW Plt Count [place] % (Auto) Lymph # Seg Neutrophils % Seg Neuts % (Manual) Lymphocytes % (Manual) Seg Neutrophils # Man Lymphocytes # (Manual) Monocytes # (Manual) D-Dimer ABG pH 7.464 H ABG pO2 64.2 L ABG HCO3 33.4 H ABG O2 Saturation 93.7 L ABG Base Excess 8.6 H ABG Hemoglobin 11.2 L Oxyhemoglobin 92.0 L Sodium Potassium Chloride Carbon Dioxide BUN Creatinine Glucose POC Glucose 154 H 156 H Calcium Magnesium Lactate Dehydrogenase CK-MB (CK-2) CK-MB (CK-2) Rel Index Albumin Ur Specific [place] Urine WBC (Auto) Digoxin Salicylates Acetaminophen 06/29/19 06/29/19 06/29/19 05:10 05:31 05:31 WBC 14.3 H Hgb MCH 25 L RDW 18.6 H Plt Count 122 L [place] % (Auto) Lymph # Seg Neutrophils % Seg Neuts % (Manual) 96.0 H Lymphocytes % (Manual) 1.0 L Seg Neutrophils # Man 13.7 H Lymphocytes # (Manual) 0.1 L Monocytes # (Manual) D-Dimer ABG pH ABG pO2 ABG HCO3 ABG O2 Saturation ABG Base Excess ABG Hemoglobin Oxyhemoglobin Sodium Potassium Chloride 95.6 L Carbon Dioxide BUN 26 H Creatinine 0.2 L Glucose 135 H POC Glucose 139 H Calcium Magnesium Lactate Dehydrogenase CK-MB (CK-2) CK-MB (CK-2) Rel Index Albumin Ur Specific [place] Urine WBC (Auto) Digoxin Salicylates Acetaminophen 06/29/19 06/29/19 06/30/19 12:26 18:10 00:41 WBC Hgb MCH RDW Plt Count [place] % (Auto) Lymph # Seg Neutrophils % Seg Neuts % (Manual) Lymphocytes % (Manual) Seg Neutrophils # Man Lymphocytes # (Manual) Monocytes # (Manual) D-Dimer ABG pH ABG pO2 ABG HCO3 ABG O2 Saturation ABG Base Excess ABG Hemoglobin Oxyhemoglobin Sodium Potassium Chloride Carbon Dioxide BUN Creatinine Glucose POC Glucose 144 H 153 H 127 H Calcium Magnesium Lactate Dehydrogenase CK-MB (CK-2) CK-MB (CK-2) Rel Index Albumin Ur Specific [place] Urine WBC (Auto) Digoxin Salicylates Acetaminophen 06/30/19 06/30/19 07/01/19 05:11 11:52 04:30 WBC 13.2 H Hgb MCH 25 L RDW 18.4 H Plt Count 89 L [place] % (Auto) Lymph # Seg Neutrophils % Seg Neuts % (Manual) 95.0 H Lymphocytes % (Manual) 2.0 L Seg Neutrophils # Man 12.5 H Lymphocytes # (Manual) 0.3 L Monocytes # (Manual) D-Dimer ABG pH ABG pO2 ABG HCO3 ABG O2 Saturation ABG Base Excess ABG Hemoglobin Oxyhemoglobin Sodium Potassium Chloride Carbon Dioxide BUN Creatinine Glucose POC Glucose 151 H 136 H Calcium Magnesium Lactate Dehydrogenase CK-MB (CK-2) CK-MB (CK-2) Rel Index Albumin Ur Specific [place] Urine WBC (Auto) Digoxin Salicylates Acetaminophen 07/01/19 07/01/19 07/01/19 04:30 05:57 12:35 WBC Hgb MCH RDW Plt Count [place] % (Auto) Lymph # Seg Neutrophils % Seg Neuts % (Manual) Lymphocytes % (Manual) Seg Neutrophils # Man Lymphocytes # (Manual) Monocytes # (Manual) D-Dimer ABG pH ABG pO2 ABG HCO3 ABG O2 Saturation ABG Base Excess ABG Hemoglobin Oxyhemoglobin Sodium Potassium Chloride 96.0 L Carbon Dioxide BUN 24 H Creatinine 0.2 L Glucose 113 H POC Glucose 124 H 119 H Calcium Magnesium Lactate Dehydrogenase CK-MB (CK-2) CK-MB (CK-2) Rel Index Albumin Ur Specific [place] Urine WBC (Auto) Digoxin Salicylates Acetaminophen 07/01/19 07/01/19 07/02/19 18:16 20:25 00:29 WBC Hgb MCH RDW Plt Count [place] % (Auto) Lymph # Seg Neutrophils % Seg Neuts % (Manual) Lymphocytes % (Manual) Seg Neutrophils # Man Lymphocytes # (Manual) Monocytes # (Manual) D-Dimer ABG pH ABG pO2 ABG HCO3 ABG O2 Saturation ABG Base Excess ABG Hemoglobin Oxyhemoglobin Sodium Potassium Chloride Carbon Dioxide BUN Creatinine Glucose POC Glucose 135 H 121 H 112 H Calcium Magnesium Lactate Dehydrogenase CK-MB (CK-2) CK-MB (CK-2) Rel Index Albumin Ur Specific [place] Urine WBC (Auto) Digoxin Salicylates Acetaminophen 07/02/19 07/02/19 07/02/19 05:34 13:18 13:20 WBC Hgb MCH RDW Plt Count [place] % (Auto) Lymph # Seg Neutrophils % Seg Neuts % (Manual) Lymphocytes % (Manual) Seg Neutrophils # Man Lymphocytes # (Manual) Monocytes # (Manual) D-Dimer ABG pH ABG pO2 ABG HCO3 32.7 H ABG O2 Saturation ABG Base Excess 6.7 H ABG Hemoglobin 8.7 L Oxyhemoglobin 94.5 L Sodium Potassium Chloride Carbon Dioxide BUN Creatinine Glucose POC Glucose 114 H 118 H Calcium Magnesium Lactate Dehydrogenase CK-MB (CK-2) CK-MB (CK-2) Rel Index Albumin Ur Specific [place] Urine WBC (Auto) Digoxin Salicylates Acetaminophen 07/04/19 07/04/19 07/04/19 05:06 11:34 17:40 WBC Hgb MCH RDW Plt Count [place] % (Auto) Lymph # Seg Neutrophils % Seg Neuts % (Manual) Lymphocytes % (Manual) Seg Neutrophils # Man Lymphocytes # (Manual) Monocytes # (Manual) D-Dimer ABG pH ABG pO2 ABG HCO3 ABG O2 Saturation ABG Base Excess ABG Hemoglobin Oxyhemoglobin Sodium 136 L Potassium Chloride Carbon Dioxide BUN Creatinine 0.2 L Glucose POC Glucose 106 H 150 H Calcium 8.2 L Magnesium Lactate Dehydrogenase CK-MB (CK-2) CK-MB (CK-2) Rel Index Albumin Ur Specific [place] Urine WBC (Auto) Digoxin Salicylates Acetaminophen 07/04/19 07/05/19 07/05/19 23:50 12:03 17:51 WBC Hgb MCH RDW Plt Count [place] % (Auto) Lymph # Seg Neutrophils % Seg Neuts % (Manual) Lymphocytes % (Manual) Seg Neutrophils # Man Lymphocytes # (Manual) Monocytes # (Manual) D-Dimer ABG pH ABG pO2 ABG HCO3 ABG O2 Saturation ABG Base Excess ABG Hemoglobin Oxyhemoglobin Sodium Potassium Chloride Carbon Dioxide BUN Creatinine Glucose POC Glucose 106 H 139 H 156 H Calcium Magnesium Lactate Dehydrogenase CK-MB (CK-2) CK-MB (CK-2) Rel Index Albumin Ur Specific [place] Urine WBC (Auto) Digoxin Salicylates Acetaminophen 07/06/19 07/06/19 07/07/19 04:51 16:57 12:29 WBC Hgb MCH RDW Plt Count [place] % (Auto) Lymph # Seg Neutrophils % Seg Neuts % (Manual) Lymphocytes % (Manual) Seg Neutrophils # Man Lymphocytes # (Manual) Monocytes # (Manual) D-Dimer ABG pH ABG pO2 ABG HCO3 ABG O2 Saturation ABG Base Excess ABG Hemoglobin Oxyhemoglobin Sodium Potassium Chloride Carbon Dioxide BUN Creatinine 0.2 L Glucose POC Glucose 121 H 108 H Calcium 8.2 L Magnesium Lactate Dehydrogenase CK-MB (CK-2) CK-MB (CK-2) Rel Index Albumin Ur Specific [place] Urine WBC (Auto) Digoxin Salicylates Acetaminophen Allied health notes reviewed: nursing
--- NOTE | 2019-07-07 17:07 | Progress Note ---
Assessment and Plan /Acute hypoxic and hypercapnic on chronic respiratory failure: Required mechanical ventilation> 96 hours Due to acute COPD exacerbation and underlying pneumonia On nebs, steroids, supportive care Extubated 07/01, pulmonary following Continue oxygen saturation greater than 92% with nasal cannula /sepsis/pneumonia/sputum Pseudomonas 06/11/2019; present on admission ID following , treated with cefepime up to 14 days Sputum cultures again positive Pseudomonas on 06/19/2019 Negative for COVID-19 /Hypertension; moderate control Continue current antihypertensives and PRN hydralazine /Paroxysmal A. 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 07/01: patient extubated, on 5L o2 n/c, monitor at icu, cont nebs. 07/02: order PT eval, consulted speech. wean off O2 as tolerated. if clinically stable will transfer to tele tomorrow 07/03 transfer to tele, order PT/OT. pending speech eval 07/04; placed on pureed diet, wait for PT eval. on 2L n/c 07/05: Pending PT eval 07/06: need KEATON on discharge Brief history: 59-year-old female patient with significant history of hypertension GERD depression COPD coronary artery disease CHF was admitted through emergency room with acute hypoxic hypercapnic respiratory failure requiring intubation and ventilatory support. Admitted to ICU evaluated by pulmonary critical, cardiology for A. fib flutter with rapid ventricular rate, started on Cardizem and amiodarone. Not a candidate for anticoagulation due to history of severe GI bleeding. Patient had mild hypotension, improved with holding Blood pressure and diuretic meds. Sputum cultures positive for Pseudomonas, treated with cefepime, ID following. Patient is extubated on 07/01, continue to monitor Physical exam: General appearance: Present: no acute distress, well-nourished, obese, - EENT Eyes: Present: PERRL, EOM intact - Neck Neck: Present: supple, normal ROM - Respiratory Respiratory effort: normal Respiratory: bilateral: diminished, rhonchi, negative: rales, wheezing - Cardiovascular Rhythm: regular Heart Sounds: Present: S1 & S2 - Extremities Extremities: no ischemia, No edema - Abdominal General gastrointestinal: soft, non-tender, non-distended, normal bowel sounds - Integumentary Integumentary: Present: clear, warm - Psychiatric Psychiatric: other (Alert and awake ) - Neurologic Neurologic: No focal deficits Subjective Date of service: 07/07/19 Principal diagnosis: Ac and ch hypoxic & hypercapnic resp failure; AE-COPD; Tobacco use disorder Interval history: Patient seen and examined. Medical records and medication list reviewed. No acute event overnight noted by the RN. Patient appears to be alert and oriented Oxygen saturation well-maintained on nasal cannula tolerating pured diet Objective - Constitutional Vitals: Vital Signs - 12hr 07/07/19 07/07/19 07/07/19 06:00 06:41 07:00 Temperature Pulse Rate 87 77 80 Pulse Rate [ Bilateral] Pulse Rate [ From Monitor] Respiratory 14 18 Rate Respiratory Rate [Bilateral ] Blood Pressure 107/56 107/56 107/56 O2 Sat by Pulse 99 Oximetry 07/07/19 07/07/19 07/07/19 08:00 09:00 09:34 Temperature 97.6 F Pulse Rate 75 74 Pulse Rate [ 82 Bilateral] Pulse Rate [ 77 From Monitor] Respiratory 19 19 Rate Respiratory 18 Rate [Bilateral ] Blood Pressure 100/47 110/50 O2 Sat by Pulse 100 Oximetry 07/07/19 07/07/19 07/07/19 09:37 10:00 11:00 Temperature Pulse Rate 88 102 H Pulse Rate [ Bilateral] Pulse Rate [ From Monitor] Respiratory 17 25 H Rate Respiratory Rate [Bilateral ] Blood Pressure 110/50 85/28 O2 Sat by Pulse 99 Oximetry 07/07/19 07/07/19 07/07/19 12:00 13:00 13:45 Temperature 98 F Pulse Rate 104 H 114 H Pulse Rate [ Bilateral] Pulse Rate [ 98 H From Monitor] Respiratory 17 12 Rate Respiratory Rate [Bilateral ] Blood Pressure 91/46 91/46 O2 Sat by Pulse 95 94 Oximetry 07/07/19 07/07/19 07/07/19 14:00 15:00 16:00 Temperature 98.6 F Pulse Rate 98 H 91 H Pulse Rate [ 92 H Bilateral] Pulse Rate [ From Monitor] Respiratory 20 23 Rate Respiratory 16 Rate [Bilateral ] Blood Pressure 98/47 103/60 O2 Sat by Pulse 97 97 Oximetry - Labs CBC & Chem 7: 07/01/19 04:30 07/06/19 04:51 Labs: Abnormal lab results 07/06/19 07/07/19 Range/Units 16:57 12:29 POC Glucose 121 H 108 H (70-105) HEART Score - HEART Score Troponin: Troponin T < 0.010 ng/mL (0.00-0.029) 06/12/19 05:09
[2019-07-07] MEDS: ALPRAZolam 0.25 MG TAB PO PRN (21:50)
[2019-07-08] MEDS: INSULIN LISPRO 100 UNIT/ML SUB-Q SCH ×3 (01:34→12:34)
[2019-07-08] MEDS: dilTIAZem 30 MG TAB PO SCH ×2 (05:31→13:22)
[2019-07-08] MEDS: VENLAFAXINE 75 MG TAB PO SCH ×2 (08:36→13:25)
[2019-07-08] MEDS: BUDESONIDE 0.5 MG/2 ML NEBU IH SCH (08:59)
[2019-07-08] MEDS: ARFORMOTEROL 15 MCG/2 ML NEBU IH SCH (08:59)
[2019-07-08] MEDS: IPRATROPIUM/ALBUTEROL SULFATE 3 ML AMPUL.NEB IH SCH ×2 (09:01→17:23)
[2019-07-08] MEDS: QUEtiapine 100 MG TAB PO SCH (09:15)
[2019-07-08] MEDS: LANSOPRAZOLE 30 MG SOLUTAB FEEDTUBE SCH (09:15)
[2019-07-08] MEDS: AMIODARONE 200 MG TAB PO SCH (09:15)
[2019-07-08] MEDS: predniSONE 5 MG TAB PO SCH (09:15)
[2019-07-08] MEDS: DOCUSATE SODIUM 100 MG/10 ML ORAL LIQD PO SCH (09:15)
[2019-07-08] MEDS: HYDROcodone/ACETAMINOPHEN 5-325 MG TAB PO PRN (11:09)
--- NOTE | 2019-07-08 14:57 | Progress Note ---
Assessment and Plan Acute and chronic hypoxic and hypercapnic respiratory failure: Acute exacerbation of COPD Tobacco use disorder/Nicotine dependence (on going) Hypernatremia History of coronary artery disease/CHF History of HTN Chronic narcotic dependence Chronic back pain Anxiety disorder History of depression; Obesity; BMI 32.2 - stopped Cardizem - transfer to [facility] - continue rate control per cardiology otherwise (on amiodarone) - continue supplemental oxygen with restrictive strategies acutely re: severe COPD (PaO2 of 60 with O2 sats 88-90% is acceptable) - continue bronchodilators with pulmonary hygiene per RT - COVID negative - Avoid benzodiazepine's, reduce the possibility of delirium - Maintenance of sleep-wake cycle, avoid delirium - advance diet per ORDER 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 Will also address smoking cessation again, once she is able to be a part of that discussion - discharge planning ongoing concurrently (LTAC evaluation) - continue other care per attending / other air quality consultant's .... re-evaluate in am & prn CONDITION: CRITICAL PROGNOSIS: GUARDED CODE STATUS: FULL CODE The high probability of a clinically significant, sudden or life-threatening deterioration of the respiratory, cardiovascular, neurology, endocrine] system(s) required my full and direct attention, intervention and personal management. The aggregate critical care time was [32] minutes without overlap. Time includes spent on; [x] Data Review and interpretation [x] Patient assessment and monitoring of vital signs [x] Documentation [x] Medication orders and management Subjective Date of service: 07/08/19 Principal diagnosis: Ac and ch hypoxic & hypercapnic resp failure; AE-COPD; Tobacco use disorder Interval history: Patient is seen today for: Ac and ch hypoxic hypercapnic resp failure; AE-COPD; Tobacco use disorder/Nicotine dependence; Hypernatremia; HTN (hypotensive at presentation; Chronic narcotic dependence ; Chronic back pain; Anxiety disorder Seen and examined at bedside; 24-hour events reviewed; nursing and respiratory care staff consulted; no adverse overnight events reported to me; laying in bed; Objective Vital Signs - 12hr 07/08/19 07/08/19 07/08/19 03:00 03:30 04:00 Temperature 98.5 F Pulse Rate 76 81 Pulse Rate [ Bilateral] Pulse Rate [ 76 From Monitor] Respiratory 18 20 24 Rate Respiratory Rate [Bilateral ] Blood Pressure 98/47 108/64 O2 Sat by Pulse 96 98 93 Oximetry 07/08/19 07/08/19 07/08/19 05:00 05:31 06:00 Temperature Pulse Rate 82 90 Pulse Rate [ Bilateral] Pulse Rate [ From Monitor] Respiratory 19 21 Rate Respiratory Rate [Bilateral ] Blood Pressure 98/47 98/47 98/47 O2 Sat by Pulse 91 96 Oximetry 07/08/19 07/08/19 07/08/19 07:00 08:00 09:00 Temperature Pulse Rate 82 83 96 H Pulse Rate [ 96 H Bilateral] Pulse Rate [ 93 H From Monitor] Respiratory 18 19 23 Rate Respiratory 19 Rate [Bilateral ] Blood Pressure 98/47 98/47 93/72 O2 Sat by Pulse 97 97 96 Oximetry 07/08/19 07/08/19 07/08/19 09:02 10:00 11:00 Temperature Pulse Rate 96 H 116 H Pulse Rate [ Bilateral] Pulse Rate [ From Monitor] Respiratory 17 22 Rate Respiratory Rate [Bilateral ] Blood Pressure 93/72 93/72 O2 Sat by Pulse 97 96 93 Oximetry 07/08/19 07/08/19 07/08/19 12:00 13:00 14:00 Temperature Pulse Rate 98 H 98 H 97 H Pulse Rate [ Bilateral] Pulse Rate [ 86 From Monitor] Respiratory 22 23 21 Rate Respiratory Rate [Bilateral ] Blood Pressure 100/54 100/54 100/54 O2 Sat by Pulse 91 95 96 Oximetry Constitutional: no acute distress, other (elderly looking obese CF, normocephalic on MVS without signidficant dyssynchrony) Eyes: non-icteric ENT: oropharynx moist, other (extubated) Neck: supple, no lymphadenopathy, no JVD Effort: mildly labored Ascultation: Bilateral: diminished breath sounds, rhonchi Percussion: Bilateral: not dull Cardiovascular: regular rate and rhythm Gastrointestinal: normoactive bowel sounds, soft, non-tender, non-distended Integumentary: normal Extremities: no cyanosis, no edema, pulses normal, no ischemia or petechiae Neurologic: non-focal exam (grossly), pupils equal and round, CN II-XII normal, unable to assess Psychiatric: mood appropriate, affect normal CBC and BMP: 07/01/19 04:30 07/06/19 04:51 ABG, PT/INR, D-dimer: ABG ABG pH 7.387 pH Units (7.350-7.450) 07/02/19 13:20 ABG pCO2 55.7 mm Hg 07/02/19 13:20 ABG pO2 81.5 mm Hg (80.0-90.0) 07/02/19 13:20 ABG O2 Saturation 96.4 % (95.0-99.0) 07/02/19 13:20 PT/INR, D-dimer PT 13.0 Sec. (12.2-14.9) 06/11/19 18:03 INR 0.97 (0.87-1.13) 06/11/19 18:03 D-Dimer 1177.30 ng/mlDDU (0-234) H 06/19/19 14:14 Abnormal lab findings: Abnormal Labs 06/11/19 06/11/19 06/11/19 18:03 18:03 18:03 WBC Hgb MCH 25 L RDW 19.4 H Plt Count 124 L [place] % (Auto) 10.3 H Lymph # 1.1 L Seg Neutrophils % 74.4 H Seg Neuts % (Manual) Lymphocytes % (Manual) Seg Neutrophils # Man Lymphocytes # (Manual) Monocytes # (Manual) D-Dimer ABG pH ABG pO2 ABG HCO3 ABG O2 Saturation ABG Base Excess ABG Hemoglobin Oxyhemoglobin Sodium 146 H Potassium Chloride Carbon Dioxide BUN 21 H Creatinine 0.4 L Glucose POC Glucose Calcium Magnesium 2.70 H Lactate Dehydrogenase CK-MB (CK-2) CK-MB (CK-2) Rel Index Albumin 3.5 L Ur Specific [place] Urine WBC (Auto) Digoxin Salicylates 1.0 L Acetaminophen 06/11/19 06/11/19 06/11/19 18:03 18:59 23:22 WBC Hgb MCH RDW Plt Count [place] % (Auto) Lymph # Seg Neutrophils % Seg Neuts % (Manual) Lymphocytes % (Manual) Seg Neutrophils # Man Lymphocytes # (Manual) Monocytes # (Manual) D-Dimer ABG pH 7.340 L ABG pO2 76.0 L ABG HCO3 34.6 H ABG O2 Saturation ABG Base Excess 7.1 H ABG Hemoglobin 10.9 L Oxyhemoglobin 91.6 L Sodium Potassium Chloride Carbon Dioxide BUN Creatinine Glucose POC Glucose Calcium Magnesium Lactate Dehydrogenase CK-MB (CK-2) 5.5 H CK-MB (CK-2) Rel Index 5.5 H Albumin Ur Specific [place] Urine WBC (Auto) Digoxin Salicylates Acetaminophen < 5.0 L 06/12/19 06/12/19 06/12/19 00:29 02:04 04:20 WBC Hgb MCH RDW Plt Count [place] % (Auto) Lymph # Seg Neutrophils % Seg Neuts % (Manual) Lymphocytes % (Manual) Seg Neutrophils # Man Lymphocytes # (Manual) Monocytes # (Manual) D-Dimer ABG pH 7.313 L ABG pO2 75.3 L ABG HCO3 29.9 H ABG O2 Saturation 94.3 L ABG Base Excess ABG Hemoglobin 10.8 L Oxyhemoglobin 92.0 L Sodium Potassium Chloride Carbon Dioxide BUN Creatinine Glucose POC Glucose 107 H Calcium Magnesium Lactate Dehydrogenase CK-MB (CK-2) CK-MB (CK-2) Rel Index Albumin Ur Specific [place] Urine WBC (Auto) 30.0 H Digoxin Salicylates Acetaminophen 06/12/19 06/12/19 06/12/19 05:09 05:09 05:09 WBC Hgb MCH 25 L RDW 19.4 H Plt Count 114 L [place] % (Auto) Lymph # Seg Neutrophils % Seg Neuts % (Manual) 91.0 H Lymphocytes % (Manual) 7.0 L Seg Neutrophils # Man Lymphocytes # (Manual) 0.4 L Monocytes # (Manual) D-Dimer ABG pH ABG pO2 ABG HCO3 ABG O2 Saturation ABG Base Excess ABG Hemoglobin Oxyhemoglobin Sodium 147 H Potassium Chloride 107.4 H Carbon Dioxide BUN 19 H Creatinine 0.4 L Glucose 110 H POC Glucose Calcium 8.2 L Magnesium Lactate Dehydrogenase CK-MB (CK-2) CK-MB (CK-2) Rel Index 5.4 H Albumin Ur Specific [place] Urine WBC (Auto) Digoxin Salicylates Acetaminophen 06/12/19 06/12/19 06/13/19 06:42 23:21 04:14 WBC Hgb MCH RDW Plt Count [place] % (Auto) Lymph # Seg Neutrophils % Seg Neuts % (Manual) Lymphocytes % (Manual) Seg Neutrophils # Man Lymphocytes # (Manual) Monocytes # (Manual) D-Dimer ABG pH ABG pO2 62.6 L ABG HCO3 29.6 H ABG O2 Saturation 91.0 L ABG Base Excess ABG Hemoglobin 10.3 L Oxyhemoglobin 89.0 L Sodium Potassium Chloride Carbon Dioxide BUN Creatinine Glucose POC Glucose 108 H 106 H Calcium Magnesium Lactate Dehydrogenase CK-MB (CK-2) CK-MB (CK-2) Rel Index Albumin Ur Specific [place] Urine WBC (Auto) Digoxin Salicylates Acetaminophen 06/13/19 06/13/19 06/13/19 04:54 04:54 12:20 WBC Hgb MCH 25 L RDW 19.2 H Plt Count 119 L [place] % (Auto) Lymph # Seg Neutrophils % Seg Neuts % (Manual) 95.0 H Lymphocytes % (Manual) 2.0 L Seg Neutrophils # Man 9.1 H Lymphocytes # (Manual) 0.2 L Monocytes # (Manual) D-Dimer ABG pH ABG pO2 ABG HCO3 ABG O2 Saturation ABG Base Excess ABG Hemoglobin Oxyhemoglobin Sodium 149 H Potassium Chloride 111.4 H Carbon Dioxide BUN 26 H Creatinine 0.5 L Glucose 107 H POC Glucose 125 H Calcium Magnesium Lactate Dehydrogenase CK-MB (CK-2) CK-MB (CK-2) Rel Index Albumin Ur Specific [place] Urine WBC (Auto) Digoxin Salicylates Acetaminophen 06/13/19 06/14/19 06/14/19 17:25 03:44 04:55 WBC Hgb MCH RDW Plt Count [place] % (Auto) Lymph # Seg Neutrophils % Seg Neuts % (Manual) Lymphocytes % (Manual) Seg Neutrophils # Man Lymphocytes # (Manual) Monocytes # (Manual) D-Dimer ABG pH ABG pO2 58.9 L ABG HCO3 29.5 H ABG O2 Saturation 88.7 L ABG Base Excess ABG Hemoglobin 10.2 L Oxyhemoglobin 86.7 L Sodium 150 H Potassium Chloride 110.4 H Carbon Dioxide BUN 20 H Creatinine 0.4 L Glucose 105 H POC Glucose 128 H Calcium Magnesium Lactate Dehydrogenase CK-MB (CK-2) CK-MB (CK-2) Rel Index Albumin Ur Specific [place] Urine WBC (Auto) Digoxin Salicylates Acetaminophen 06/14/19 06/14/19 06/14/19 05:37 11:58 21:00 WBC Hgb MCH RDW Plt Count [place] % (Auto) Lymph # Seg Neutrophils % Seg Neuts % (Manual) Lymphocytes % (Manual) Seg Neutrophils # Man Lymphocytes # (Manual) Monocytes # (Manual) D-Dimer ABG pH 7.321 L ABG pO2 60.0 L ABG HCO3 31.4 H ABG O2 Saturation 87.3 L ABG Base Excess 4.1 H ABG Hemoglobin 10.6 L Oxyhemoglobin 84.8 L Sodium Potassium Chloride Carbon Dioxide BUN Creatinine Glucose POC Glucose 111 H 116 H Calcium Magnesium Lactate Dehydrogenase CK-MB (CK-2) CK-MB (CK-2) Rel Index Albumin Ur Specific [place] Urine WBC (Auto) Digoxin Salicylates Acetaminophen 06/15/19 06/15/19 06/15/19 00:22 03:25 05:08 WBC Hgb MCH RDW Plt Count [place] % (Auto) Lymph # Seg Neutrophils % Seg Neuts % (Manual) Lymphocytes % (Manual) Seg Neutrophils # Man Lymphocytes # (Manual) Monocytes # (Manual) D-Dimer ABG pH 7.317 L ABG pO2 ABG HCO3 31.5 H ABG O2 Saturation ABG Base Excess 4.1 H ABG Hemoglobin 10.4 L Oxyhemoglobin 94.1 L Sodium Potassium Chloride Carbon Dioxide 31 H BUN 23 H Creatinine 0.3 L Glucose 120 H POC Glucose 108 H Calcium Magnesium Lactate Dehydrogenase CK-MB (CK-2) CK-MB (CK-2) Rel Index Albumin Ur Specific [place] Urine WBC (Auto) Digoxin Salicylates Acetaminophen 06/15/19 06/15/19 06/15/19 05:24 11:41 17:38 WBC Hgb MCH RDW Plt Count [place] % (Auto) Lymph # Seg Neutrophils % Seg Neuts % (Manual) Lymphocytes % (Manual) Seg Neutrophils # Man Lymphocytes # (Manual) Monocytes # (Manual) D-Dimer ABG pH ABG pO2 ABG HCO3 ABG O2 Saturation ABG Base Excess ABG Hemoglobin Oxyhemoglobin Sodium Potassium Chloride Carbon Dioxide BUN Creatinine Glucose POC Glucose 111 H 154 H 115 H Calcium Magnesium Lactate Dehydrogenase CK-MB (CK-2) CK-MB (CK-2) Rel Index Albumin Ur Specific [place] Urine WBC (Auto) Digoxin Salicylates Acetaminophen 06/15/19 06/16/19 06/16/19 23:31 03:40 05:18 WBC Hgb MCH RDW Plt Count [place] % (Auto) Lymph # Seg Neutrophils % Seg Neuts % (Manual) Lymphocytes % (Manual) Seg Neutrophils # Man Lymphocytes # (Manual) Monocytes # (Manual) D-Dimer ABG pH 7.313 L ABG pO2 96.4 H ABG HCO3 35.2 H ABG O2 Saturation ABG Base Excess 7.2 H ABG Hemoglobin 10.5 L Oxyhemoglobin 94.9 L Sodium Potassium Chloride Carbon Dioxide BUN Creatinine Glucose POC Glucose 161 H 158 H Calcium Magnesium Lactate Dehydrogenase CK-MB (CK-2) CK-MB (CK-2) Rel Index Albumin Ur Specific [place] Urine WBC (Auto) Digoxin Salicylates Acetaminophen 06/16/19 06/16/19 06/16/19 05:45 05:45 12:06 WBC 12.1 H Hgb MCH 25 L RDW 18.7 H Plt Count 93 L [place] % (Auto) Lymph # Seg Neutrophils % Seg Neuts % (Manual) 97.0 H Lymphocytes % (Manual) 0 L Seg Neutrophils # Man 11.7 H Lymphocytes # (Manual) 0.0 L Monocytes # (Manual) D-Dimer ABG pH ABG pO2 ABG HCO3 ABG O2 Saturation ABG Base Excess ABG Hemoglobin Oxyhemoglobin Sodium Potassium Chloride Carbon Dioxide 33 H BUN 25 H Creatinine 0.3 L Glucose 165 H POC Glucose 178 H Calcium Magnesium Lactate Dehydrogenase CK-MB (CK-2) CK-MB (CK-2) Rel Index Albumin Ur Specific [place] Urine WBC (Auto) Digoxin Salicylates Acetaminophen 06/16/19 06/16/19 06/17/19 17:55 23:42 03:35 WBC Hgb MCH RDW Plt Count [place] % (Auto) Lymph # Seg Neutrophils % Seg Neuts % (Manual) Lymphocytes % (Manual) Seg Neutrophils # Man Lymphocytes # (Manual) Monocytes # (Manual) D-Dimer ABG pH ABG pO2 73.2 L ABG HCO3 35.2 H ABG O2 Saturation 94.5 L ABG Base Excess 8.8 H ABG Hemoglobin 10.7 L Oxyhemoglobin 92.6 L Sodium Potassium Chloride Carbon Dioxide BUN Creatinine Glucose POC Glucose 180 H 160 H Calcium Magnesium Lactate Dehydrogenase CK-MB (CK-2) CK-MB (CK-2) Rel Index Albumin Ur Specific [place] Urine WBC (Auto) Digoxin Salicylates Acetaminophen 04/30/20 04/30/20 04/30/20 04:57 09:45 11:59 WBC 11.7 H Hgb MCH 25 L RDW 18.2 H Plt Count 79 L [place] % (Auto) Lymph # Seg Neutrophils % Seg Neuts % (Manual) 96.0 H Lymphocytes % (Manual) 3.0 L Seg Neutrophils # Man 11.2 H Lymphocytes # (Manual) 0.4 L Monocytes # (Manual) D-Dimer ABG pH ABG pO2 ABG HCO3 ABG O2 Saturation ABG Base Excess ABG Hemoglobin Oxyhemoglobin Sodium Potassium Chloride Carbon Dioxide 34 H BUN 31 H Creatinine 0.3 L Glucose 153 H POC Glucose 163 H Calcium Magnesium Lactate Dehydrogenase CK-MB (CK-2) CK-MB (CK-2) Rel Index Albumin Ur Specific [place] Urine WBC (Auto) Digoxin Salicylates Acetaminophen 06/17/19 06/17/19 06/17/19 12:34 17:33 23:39 WBC Hgb MCH RDW Plt Count [place] % (Auto) Lymph # Seg Neutrophils % Seg Neuts % (Manual) Lymphocytes % (Manual) Seg Neutrophils # Man Lymphocytes # (Manual) Monocytes # (Manual) D-Dimer ABG pH ABG pO2 ABG HCO3 ABG O2 Saturation ABG Base Excess ABG Hemoglobin Oxyhemoglobin Sodium Potassium Chloride Carbon Dioxide BUN Creatinine Glucose POC Glucose 171 H 186 H 161 H Calcium Magnesium Lactate Dehydrogenase CK-MB (CK-2) CK-MB (CK-2) Rel Index Albumin Ur Specific [place] Urine WBC (Auto) Digoxin Salicylates Acetaminophen 06/18/19 06/18/19 06/18/19 04:25 05:23 05:23 WBC 13.2 H Hgb MCH 25 L RDW 18.3 H Plt Count 81 L [place] % (Auto) Lymph # Seg Neutrophils % Seg Neuts % (Manual) 96.0 H Lymphocytes % (Manual) 4.0 L Seg Neutrophils # Man 12.7 H Lymphocytes # (Manual) 0.5 L Monocytes # (Manual) D-Dimer ABG pH ABG pO2 72.9 L ABG HCO3 33.8 H ABG O2 Saturation 94.6 L ABG Base Excess 7.3 H ABG Hemoglobin 11.1 L Oxyhemoglobin 92.8 L Sodium Potassium Chloride Carbon Dioxide 34 H BUN 36 H Creatinine 0.3 L Glucose 162 H POC Glucose Calcium Magnesium Lactate Dehydrogenase CK-MB (CK-2) CK-MB (CK-2) Rel Index Albumin Ur Specific [place] Urine WBC (Auto) Digoxin Salicylates Acetaminophen 06/18/19 06/18/19 06/18/19 05:37 12:26 18:17 WBC Hgb MCH RDW Plt Count [place] % (Auto) Lymph # Seg Neutrophils % Seg Neuts % (Manual) Lymphocytes % (Manual) Seg Neutrophils # Man Lymphocytes # (Manual) Monocytes # (Manual) D-Dimer ABG pH ABG pO2 ABG HCO3 ABG O2 Saturation ABG Base Excess ABG Hemoglobin Oxyhemoglobin Sodium Potassium Chloride Carbon Dioxide BUN Creatinine Glucose POC Glucose 177 H 156 H 134 H Calcium Magnesium Lactate Dehydrogenase CK-MB (CK-2) CK-MB (CK-2) Rel Index Albumin Ur Specific [place] Urine WBC (Auto) Digoxin Salicylates Acetaminophen 06/18/19 06/19/19 06/19/19 23:51 05:58 12:12 WBC Hgb MCH RDW Plt Count [place] % (Auto) Lymph # Seg Neutrophils % Seg Neuts % (Manual) Lymphocytes % (Manual) Seg Neutrophils # Man Lymphocytes # (Manual) Monocytes # (Manual) D-Dimer ABG pH ABG pO2 ABG HCO3 ABG O2 Saturation ABG Base Excess ABG Hemoglobin Oxyhemoglobin Sodium Potassium Chloride Carbon Dioxide BUN Creatinine Glucose POC Glucose 153 H 143 H 186 H Calcium Magnesium Lactate Dehydrogenase CK-MB (CK-2) CK-MB (CK-2) Rel Index Albumin Ur Specific [place] Urine WBC (Auto) Digoxin Salicylates Acetaminophen 06/19/19 06/19/19 06/19/19 12:40 14:14 14:14 WBC Hgb MCH RDW Plt Count [place] % (Auto) Lymph # Seg Neutrophils % Seg Neuts % (Manual) Lymphocytes % (Manual) Seg Neutrophils # Man Lymphocytes # (Manual) Monocytes # (Manual) D-Dimer 1177.30 H ABG pH ABG pO2 ABG HCO3 ABG O2 Saturation ABG Base Excess ABG Hemoglobin Oxyhemoglobin Sodium Potassium Chloride Carbon Dioxide BUN Creatinine Glucose POC Glucose Calcium Magnesium Lactate Dehydrogenase 290 H CK-MB (CK-2) CK-MB (CK-2) Rel Index Albumin Ur Specific [place] 1.032 H Urine WBC (Auto) Digoxin Salicylates Acetaminophen 06/19/19 06/19/19 06/19/19 16:40 17:00 23:50 WBC Hgb MCH RDW Plt Count [place] % (Auto) Lymph # Seg Neutrophils % Seg Neuts % (Manual) Lymphocytes % (Manual) Seg Neutrophils # Man Lymphocytes # (Manual) Monocytes # (Manual) D-Dimer ABG pH ABG pO2 54.2 L ABG HCO3 32.1 H ABG O2 Saturation 87.8 L ABG Base Excess 6.3 H ABG Hemoglobin 11.2 L Oxyhemoglobin 85.9 L Sodium Potassium Chloride Carbon Dioxide BUN Creatinine Glucose POC Glucose 137 H 148 H Calcium Magnesium Lactate Dehydrogenase CK-MB (CK-2) CK-MB (CK-2) Rel Index Albumin Ur Specific [place] Urine WBC (Auto) Digoxin Salicylates Acetaminophen 06/20/19 06/20/19 06/20/19 05:14 05:30 05:40 WBC 16.4 H Hgb MCH 25 L RDW 18.3 H Plt Count 79 L [place] % (Auto) Lymph # Seg Neutrophils % Seg Neuts % (Manual) Lymphocytes % (Manual) Seg Neutrophils # Man Lymphocytes # (Manual) Monocytes # (Manual) D-Dimer ABG pH ABG pO2 63.4 L ABG HCO3 32.9 H ABG O2 Saturation 91.8 L ABG Base Excess 6.2 H ABG Hemoglobin 10.4 L Oxyhemoglobin 89.7 L Sodium Potassium Chloride Carbon Dioxide BUN Creatinine Glucose POC Glucose 164 H Calcium Magnesium Lactate Dehydrogenase CK-MB (CK-2) CK-MB (CK-2) Rel Index Albumin Ur Specific [place] Urine WBC (Auto) Digoxin Salicylates Acetaminophen 06/20/19 06/20/19 06/20/19 05:40 12:35 18:32 WBC Hgb MCH RDW Plt Count [place] % (Auto) Lymph # Seg Neutrophils % Seg Neuts % (Manual) Lymphocytes % (Manual) Seg Neutrophils # Man Lymphocytes # (Manual) Monocytes # (Manual) D-Dimer ABG pH ABG pO2 ABG HCO3 ABG O2 Saturation ABG Base Excess ABG Hemoglobin Oxyhemoglobin Sodium Potassium Chloride Carbon Dioxide 31 H BUN 25 H Creatinine 0.3 L Glucose 150 H POC Glucose 162 H 159 H Calcium Magnesium Lactate Dehydrogenase CK-MB (CK-2) CK-MB (CK-2) Rel Index Albumin Ur Specific [place] Urine WBC (Auto) Digoxin Salicylates Acetaminophen 06/21/19 06/21/19 06/21/19 00:12 04:58 04:58 WBC 13.9 H Hgb 9.7 L MCH 25 L RDW 17.9 H Plt Count 85 L [place] % (Auto) Lymph # Seg Neutrophils % Seg Neuts % (Manual) Lymphocytes % (Manual) Seg Neutrophils # Man Lymphocytes # (Manual) Monocytes # (Manual) D-Dimer ABG pH ABG pO2 ABG HCO3 ABG O2 Saturation ABG Base Excess ABG Hemoglobin Oxyhemoglobin Sodium Potassium Chloride Carbon Dioxide 31 H BUN 23 H Creatinine 0.3 L Glucose 142 H POC Glucose 144 H Calcium Magnesium Lactate Dehydrogenase CK-MB (CK-2) CK-MB (CK-2) Rel Index Albumin Ur Specific [place] Urine WBC (Auto) Digoxin Salicylates Acetaminophen 06/21/19 06/21/19 06/21/19 05:42 12:43 23:17 WBC Hgb MCH RDW Plt Count [place] % (Auto) Lymph # Seg Neutrophils % Seg Neuts % (Manual) Lymphocytes % (Manual) Seg Neutrophils # Man Lymphocytes # (Manual) Monocytes # (Manual) D-Dimer ABG pH ABG pO2 ABG HCO3 ABG O2 Saturation ABG Base Excess ABG Hemoglobin Oxyhemoglobin Sodium Potassium Chloride Carbon Dioxide BUN Creatinine Glucose POC Glucose 137 H 118 H 141 H Calcium Magnesium Lactate Dehydrogenase CK-MB (CK-2) CK-MB (CK-2) Rel Index Albumin Ur Specific [place] Urine WBC (Auto) Digoxin Salicylates Acetaminophen 06/22/19 06/22/19 06/22/19 05:28 12:11 18:27 WBC Hgb MCH RDW Plt Count [place] % (Auto) Lymph # Seg Neutrophils % Seg Neuts % (Manual) Lymphocytes % (Manual) Seg Neutrophils # Man Lymphocytes # (Manual) Monocytes # (Manual) D-Dimer ABG pH ABG pO2 ABG HCO3 ABG O2 Saturation ABG Base Excess ABG Hemoglobin Oxyhemoglobin Sodium Potassium Chloride Carbon Dioxide BUN Creatinine Glucose POC Glucose 144 H 138 H 169 H Calcium Magnesium Lactate Dehydrogenase CK-MB (CK-2) CK-MB (CK-2) Rel Index Albumin Ur Specific [place] Urine WBC (Auto) Digoxin Salicylates Acetaminophen 06/23/19 06/23/19 06/23/19 00:12 05:05 05:05 WBC 11.5 H Hgb MCH 25 L RDW 17.5 H Plt Count 98 L [place] % (Auto) Lymph # Seg Neutrophils % Seg Neuts % (Manual) 88.0 H Lymphocytes % (Manual) 4.0 L Seg Neutrophils # Man 10.1 H Lymphocytes # (Manual) 0.5 L Monocytes # (Manual) D-Dimer ABG pH ABG pO2 ABG HCO3 ABG O2 Saturation ABG Base Excess ABG Hemoglobin Oxyhemoglobin Sodium 133 L Potassium 5.3 H Chloride 95.5 L Carbon Dioxide BUN 24 H Creatinine 0.3 L Glucose 168 H POC Glucose 154 H Calcium Magnesium 2.60 H Lactate Dehydrogenase CK-MB (CK-2) CK-MB (CK-2) Rel Index Albumin Ur Specific [place] Urine WBC (Auto) Digoxin Salicylates Acetaminophen 06/23/19 06/23/19 06/23/19 05:15 08:50 12:00 WBC Hgb MCH RDW Plt Count [place] % (Auto) Lymph # Seg Neutrophils % Seg Neuts % (Manual) Lymphocytes % (Manual) Seg Neutrophils # Man Lymphocytes # (Manual) Monocytes # (Manual) D-Dimer ABG pH ABG pO2 56.9 L ABG HCO3 33.2 H ABG O2 Saturation 88.0 L ABG Base Excess 7.0 H ABG Hemoglobin 9.9 L Oxyhemoglobin 86.4 L Sodium Potassium Chloride Carbon Dioxide BUN Creatinine Glucose POC Glucose 174 H 168 H Calcium Magnesium Lactate Dehydrogenase CK-MB (CK-2) CK-MB (CK-2) Rel Index Albumin Ur Specific [place] Urine WBC (Auto) Digoxin Salicylates Acetaminophen 06/23/19 06/23/19 06/24/19 17:54 23:55 04:41 WBC Hgb MCH RDW Plt Count [place] % (Auto) Lymph # Seg Neutrophils % Seg Neuts % (Manual) Lymphocytes % (Manual) Seg Neutrophils # Man Lymphocytes # (Manual) Monocytes # (Manual) D-Dimer ABG pH ABG pO2 ABG HCO3 ABG O2 Saturation ABG Base Excess ABG Hemoglobin Oxyhemoglobin Sodium Potassium Chloride Carbon Dioxide BUN Creatinine Glucose POC Glucose 146 H 145 H Calcium Magnesium Lactate Dehydrogenase CK-MB (CK-2) CK-MB (CK-2) Rel Index Albumin Ur Specific [place] Urine WBC (Auto) Digoxin 0.5 L Salicylates Acetaminophen 06/24/19 06/24/19 06/24/19 05:53 12:01 16:55 WBC Hgb MCH RDW Plt Count [place] % (Auto) Lymph # Seg Neutrophils % Seg Neuts % (Manual) Lymphocytes % (Manual) Seg Neutrophils # Man Lymphocytes # (Manual) Monocytes # (Manual) D-Dimer ABG pH ABG pO2 ABG HCO3 ABG O2 Saturation ABG Base Excess ABG Hemoglobin Oxyhemoglobin Sodium Potassium Chloride Carbon Dioxide BUN Creatinine Glucose POC Glucose 184 H 178 H 152 H Calcium Magnesium Lactate Dehydrogenase CK-MB (CK-2) CK-MB (CK-2) Rel Index Albumin Ur Specific [place] Urine WBC (Auto) Digoxin Salicylates Acetaminophen 06/25/19 06/25/19 06/25/19 00:10 04:37 04:38 WBC 17.9 H Hgb MCH 25 L RDW 18.3 H Plt Count 124 L [place] % (Auto) Lymph # Seg Neutrophils % Seg Neuts % (Manual) 94.0 H Lymphocytes % (Manual) 1.0 L Seg Neutrophils # Man 16.8 H Lymphocytes # (Manual) 0.2 L Monocytes # (Manual) 0.9 H D-Dimer ABG pH ABG pO2 62.7 L ABG HCO3 33.0 H ABG O2 Saturation 91.8 L ABG Base Excess 7.8 H ABG Hemoglobin 10.0 L Oxyhemoglobin 90.2 L Sodium Potassium Chloride Carbon Dioxide BUN Creatinine Glucose POC Glucose 145 H Calcium Magnesium Lactate Dehydrogenase CK-MB (CK-2) CK-MB (CK-2) Rel Index Albumin Ur Specific [place] Urine WBC (Auto) Digoxin Salicylates Acetaminophen 06/25/19 06/25/19 06/25/19 04:38 05:40 12:45 WBC Hgb MCH RDW Plt Count [place] % (Auto) Lymph # Seg Neutrophils % Seg Neuts % (Manual) Lymphocytes % (Manual) Seg Neutrophils # Man Lymphocytes # (Manual) Monocytes # (Manual) D-Dimer ABG pH ABG pO2 ABG HCO3 ABG O2 Saturation ABG Base Excess ABG Hemoglobin Oxyhemoglobin Sodium Potassium Chloride 95.4 L Carbon Dioxide 31 H BUN 22 H Creatinine 0.3 L Glucose 126 H POC Glucose 128 H 169 H Calcium Magnesium Lactate Dehydrogenase CK-MB (CK-2) CK-MB (CK-2) Rel Index Albumin Ur Specific [place] Urine WBC (Auto) Digoxin Salicylates Acetaminophen 06/25/19 06/26/19 06/26/19 16:57 00:30 05:22 WBC Hgb MCH RDW Plt Count [place] % (Auto) Lymph # Seg Neutrophils % Seg Neuts % (Manual) Lymphocytes % (Manual) Seg Neutrophils # Man Lymphocytes # (Manual) Monocytes # (Manual) D-Dimer ABG pH ABG pO2 ABG HCO3 ABG O2 Saturation ABG Base Excess ABG Hemoglobin Oxyhemoglobin Sodium Potassium Chloride Carbon Dioxide BUN Creatinine Glucose POC Glucose 130 H 167 H 155 H Calcium Magnesium Lactate Dehydrogenase CK-MB (CK-2) CK-MB (CK-2) Rel Index Albumin Ur Specific [place] Urine WBC (Auto) Digoxin Salicylates Acetaminophen 06/26/19 06/26/19 06/27/19 12:02 23:57 05:54 WBC Hgb MCH RDW Plt Count [place] % (Auto) Lymph # Seg Neutrophils % Seg Neuts % (Manual) Lymphocytes % (Manual) Seg Neutrophils # Man Lymphocytes # (Manual) Monocytes # (Manual) D-Dimer ABG pH ABG pO2 ABG HCO3 ABG O2 Saturation ABG Base Excess ABG Hemoglobin Oxyhemoglobin Sodium Potassium Chloride Carbon Dioxide BUN Creatinine Glucose POC Glucose 130 H 155 H 152 H Calcium Magnesium Lactate Dehydrogenase CK-MB (CK-2) CK-MB (CK-2) Rel Index Albumin Ur Specific [place] Urine WBC (Auto) Digoxin Salicylates Acetaminophen 06/27/19 06/27/19 06/27/19 12:09 13:41 13:41 WBC 15.0 H Hgb 10.0 L MCH 25 L RDW 17.9 H Plt Count 114 L [place] % (Auto) Lymph # Seg Neutrophils % Seg Neuts % (Manual) 98.0 H Lymphocytes % (Manual) 0 L Seg Neutrophils # Man 14.7 H Lymphocytes # (Manual) 0.0 L Monocytes # (Manual) D-Dimer ABG pH ABG pO2 ABG HCO3 ABG O2 Saturation ABG Base Excess ABG Hemoglobin Oxyhemoglobin Sodium 135 L Potassium Chloride 96.5 L Carbon Dioxide BUN 21 H Creatinine 0.2 L Glucose 161 H POC Glucose 150 H Calcium Magnesium Lactate Dehydrogenase CK-MB (CK-2) CK-MB (CK-2) Rel Index Albumin Ur Specific [place] Urine WBC (Auto) Digoxin Salicylates Acetaminophen 06/27/19 06/28/19 06/28/19 18:03 00:22 00:58 WBC 16.2 H Hgb MCH 25 L RDW 18.2 H Plt Count 130 L [place] % (Auto) Lymph # Seg Neutrophils % Seg Neuts % (Manual) 98.0 H Lymphocytes % (Manual) 0 L Seg Neutrophils # Man 15.9 H Lymphocytes # (Manual) 0.0 L Monocytes # (Manual) D-Dimer ABG pH ABG pO2 ABG HCO3 ABG O2 Saturation ABG Base Excess ABG Hemoglobin Oxyhemoglobin Sodium Potassium Chloride Carbon Dioxide BUN Creatinine Glucose POC Glucose 156 H 150 H Calcium Magnesium Lactate Dehydrogenase CK-MB (CK-2) CK-MB (CK-2) Rel Index Albumin Ur Specific [place] Urine WBC (Auto) Digoxin Salicylates Acetaminophen 06/28/19 06/28/19 06/28/19 00:58 05:19 12:14 WBC Hgb MCH RDW Plt Count [place] % (Auto) Lymph # Seg Neutrophils % Seg Neuts % (Manual) Lymphocytes % (Manual) Seg Neutrophils # Man Lymphocytes # (Manual) Monocytes # (Manual) D-Dimer ABG pH ABG pO2 ABG HCO3 ABG O2 Saturation ABG Base Excess ABG Hemoglobin Oxyhemoglobin Sodium Potassium Chloride 96.5 L Carbon Dioxide 32 H BUN 21 H Creatinine 0.2 L Glucose 140 H POC Glucose 122 H 137 H Calcium Magnesium Lactate Dehydrogenase CK-MB (CK-2) CK-MB (CK-2) Rel Index Albumin Ur Specific [place] Urine WBC (Auto) Digoxin Salicylates Acetaminophen 06/28/19 06/28/19 06/29/19 12:20 17:06 00:20 WBC Hgb MCH RDW Plt Count [place] % (Auto) Lymph # Seg Neutrophils % Seg Neuts % (Manual) Lymphocytes % (Manual) Seg Neutrophils # Man Lymphocytes # (Manual) Monocytes # (Manual) D-Dimer ABG pH 7.464 H ABG pO2 64.2 L ABG HCO3 33.4 H ABG O2 Saturation 93.7 L ABG Base Excess 8.6 H ABG Hemoglobin 11.2 L Oxyhemoglobin 92.0 L Sodium Potassium Chloride Carbon Dioxide BUN Creatinine Glucose POC Glucose 154 H 156 H Calcium Magnesium Lactate Dehydrogenase CK-MB (CK-2) CK-MB (CK-2) Rel Index Albumin Ur Specific [place] Urine WBC (Auto) Digoxin Salicylates Acetaminophen 06/29/19 06/29/19 06/29/19 05:10 05:31 05:31 WBC 14.3 H Hgb MCH 25 L RDW 18.6 H Plt Count 122 L [place] % (Auto) Lymph # Seg Neutrophils % Seg Neuts % (Manual) 96.0 H Lymphocytes % (Manual) 1.0 L Seg Neutrophils # Man 13.7 H Lymphocytes # (Manual) 0.1 L Monocytes # (Manual) D-Dimer ABG pH ABG pO2 ABG HCO3 ABG O2 Saturation ABG Base Excess ABG Hemoglobin Oxyhemoglobin Sodium Potassium Chloride 95.6 L Carbon Dioxide BUN 26 H Creatinine 0.2 L Glucose 135 H POC Glucose 139 H Calcium Magnesium Lactate Dehydrogenase CK-MB (CK-2) CK-MB (CK-2) Rel Index Albumin Ur Specific [place] Urine WBC (Auto) Digoxin Salicylates Acetaminophen 06/29/19 06/29/19 06/30/19 12:26 18:10 00:41 WBC Hgb MCH RDW Plt Count [place] % (Auto) Lymph # Seg Neutrophils % Seg Neuts % (Manual) Lymphocytes % (Manual) Seg Neutrophils # Man Lymphocytes # (Manual) Monocytes # (Manual) D-Dimer ABG pH ABG pO2 ABG HCO3 ABG O2 Saturation ABG Base Excess ABG Hemoglobin Oxyhemoglobin Sodium Potassium Chloride Carbon Dioxide BUN Creatinine Glucose POC Glucose 144 H 153 H 127 H Calcium Magnesium Lactate Dehydrogenase CK-MB (CK-2) CK-MB (CK-2) Rel Index Albumin Ur Specific [place] Urine WBC (Auto) Digoxin Salicylates Acetaminophen 06/30/19 06/30/19 07/01/19 05:11 11:52 04:30 WBC 13.2 H Hgb MCH 25 L RDW 18.4 H Plt Count 89 L [place] % (Auto) Lymph # Seg Neutrophils % Seg Neuts % (Manual) 95.0 H Lymphocytes % (Manual) 2.0 L Seg Neutrophils # Man 12.5 H Lymphocytes # (Manual) 0.3 L Monocytes # (Manual) D-Dimer ABG pH ABG pO2 ABG HCO3 ABG O2 Saturation ABG Base Excess ABG Hemoglobin Oxyhemoglobin Sodium Potassium Chloride Carbon Dioxide BUN Creatinine Glucose POC Glucose 151 H 136 H Calcium Magnesium Lactate Dehydrogenase CK-MB (CK-2) CK-MB (CK-2) Rel Index Albumin Ur Specific [place] Urine WBC (Auto) Digoxin Salicylates Acetaminophen 07/01/19 07/01/19 07/01/19 04:30 05:57 12:35 WBC Hgb MCH RDW Plt Count [place] % (Auto) Lymph # Seg Neutrophils % Seg Neuts % (Manual) Lymphocytes % (Manual) Seg Neutrophils # Man Lymphocytes # (Manual) Monocytes # (Manual) D-Dimer ABG pH ABG pO2 ABG HCO3 ABG O2 Saturation ABG Base Excess ABG Hemoglobin Oxyhemoglobin Sodium Potassium Chloride 96.0 L Carbon Dioxide BUN 24 H Creatinine 0.2 L Glucose 113 H POC Glucose 124 H 119 H Calcium Magnesium Lactate Dehydrogenase CK-MB (CK-2) CK-MB (CK-2) Rel Index Albumin Ur Specific [place] Urine WBC (Auto) Digoxin Salicylates Acetaminophen 07/01/19 07/01/19 07/02/19 18:16 20:25 00:29 WBC Hgb MCH RDW Plt Count [place] % (Auto) Lymph # Seg Neutrophils % Seg Neuts % (Manual) Lymphocytes % (Manual) Seg Neutrophils # Man Lymphocytes # (Manual) Monocytes # (Manual) D-Dimer ABG pH ABG pO2 ABG HCO3 ABG O2 Saturation ABG Base Excess ABG Hemoglobin Oxyhemoglobin Sodium Potassium Chloride Carbon Dioxide BUN Creatinine Glucose POC Glucose 135 H 121 H 112 H Calcium Magnesium Lactate Dehydrogenase CK-MB (CK-2) CK-MB (CK-2) Rel Index Albumin Ur Specific [place] Urine WBC (Auto) Digoxin Salicylates Acetaminophen 07/02/19 07/02/19 07/02/19 05:34 13:18 13:20 WBC Hgb MCH RDW Plt Count [place] % (Auto) Lymph # Seg Neutrophils % Seg Neuts % (Manual) Lymphocytes % (Manual) Seg Neutrophils # Man Lymphocytes # (Manual) Monocytes # (Manual) D-Dimer ABG pH ABG pO2 ABG HCO3 32.7 H ABG O2 Saturation ABG Base Excess 6.7 H ABG Hemoglobin 8.7 L Oxyhemoglobin 94.5 L Sodium Potassium Chloride Carbon Dioxide BUN Creatinine Glucose POC Glucose 114 H 118 H Calcium Magnesium Lactate Dehydrogenase CK-MB (CK-2) CK-MB (CK-2) Rel Index Albumin Ur Specific [place] Urine WBC (Auto) Digoxin Salicylates Acetaminophen 07/04/19 07/04/19 07/04/19 05:06 11:34 17:40 WBC Hgb MCH RDW Plt Count [place] % (Auto) Lymph # Seg Neutrophils % Seg Neuts % (Manual) Lymphocytes % (Manual) Seg Neutrophils # Man Lymphocytes # (Manual) Monocytes # (Manual) D-Dimer ABG pH ABG pO2 ABG HCO3 ABG O2 Saturation ABG Base Excess ABG Hemoglobin Oxyhemoglobin Sodium 136 L Potassium Chloride Carbon Dioxide BUN Creatinine 0.2 L Glucose POC Glucose 106 H 150 H Calcium 8.2 L Magnesium Lactate Dehydrogenase CK-MB (CK-2) CK-MB (CK-2) Rel Index Albumin Ur Specific [place] Urine WBC (Auto) Digoxin Salicylates Acetaminophen 07/04/19 07/05/19 07/05/19 23:50 12:03 17:51 WBC Hgb MCH RDW Plt Count [place] % (Auto) Lymph # Seg Neutrophils % Seg Neuts % (Manual) Lymphocytes % (Manual) Seg Neutrophils # Man Lymphocytes # (Manual) Monocytes # (Manual) D-Dimer ABG pH ABG pO2 ABG HCO3 ABG O2 Saturation ABG Base Excess ABG Hemoglobin Oxyhemoglobin Sodium Potassium Chloride Carbon Dioxide BUN Creatinine Glucose POC Glucose 106 H 139 H 156 H Calcium Magnesium Lactate Dehydrogenase CK-MB (CK-2) CK-MB (CK-2) Rel Index Albumin Ur Specific [place] Urine WBC (Auto) Digoxin Salicylates Acetaminophen 07/06/19 07/06/19 07/07/19 04:51 16:57 12:29 WBC Hgb MCH RDW Plt Count [place] % (Auto) Lymph # Seg Neutrophils % Seg Neuts % (Manual) Lymphocytes % (Manual) Seg Neutrophils # Man Lymphocytes # (Manual) Monocytes # (Manual) D-Dimer ABG pH ABG pO2 ABG HCO3 ABG O2 Saturation ABG Base Excess ABG Hemoglobin Oxyhemoglobin Sodium Potassium Chloride Carbon Dioxide BUN Creatinine 0.2 L Glucose POC Glucose 121 H 108 H Calcium 8.2 L Magnesium Lactate Dehydrogenase CK-MB (CK-2) CK-MB (CK-2) Rel Index Albumin Ur Specific [place] Urine WBC (Auto) Digoxin Salicylates Acetaminophen 07/07/19 07/07/19 07/08/19 17:47 20:21 00:15 WBC Hgb MCH RDW Plt Count [place] % (Auto) Lymph # Seg Neutrophils % Seg Neuts % (Manual) Lymphocytes % (Manual) Seg Neutrophils # Man Lymphocytes # (Manual) Monocytes # (Manual) D-Dimer ABG pH ABG pO2 ABG HCO3 ABG O2 Saturation ABG Base Excess ABG Hemoglobin Oxyhemoglobin Sodium Potassium Chloride Carbon Dioxide BUN Creatinine Glucose POC Glucose 64 L 121 H 109 H Calcium Magnesium Lactate Dehydrogenase CK-MB (CK-2) CK-MB (CK-2) Rel Index Albumin Ur Specific [place] Urine WBC (Auto) Digoxin Salicylates Acetaminophen 07/08/19 12:02 WBC Hgb MCH RDW Plt Count [place] % (Auto) Lymph # Seg Neutrophils % Seg Neuts % (Manual) Lymphocytes % (Manual) Seg Neutrophils # Man Lymphocytes # (Manual) Monocytes # (Manual) D-Dimer ABG pH ABG pO2 ABG HCO3 ABG O2 Saturation ABG Base Excess ABG Hemoglobin Oxyhemoglobin Sodium Potassium Chloride Carbon Dioxide BUN Creatinine Glucose POC Glucose 148 H Calcium Magnesium Lactate Dehydrogenase CK-MB (CK-2) CK-MB (CK-2) Rel Index Albumin Ur Specific [place] Urine WBC (Auto) Digoxin Salicylates Acetaminophen Allied health notes reviewed: nursing
--- NOTE | 2019-07-08 15:00 | Discharge Summary ---
Providers - Providers Date of Admission: 06/11/19 22:48 Date of discharge: 07/08/19 Attending physician: HELIO MILLS 06/11/19 17:44 Consult to Dietitian/Nutrition [CONS] Routine Physician Instructions: Reason For Exam: Reason for Consult: Evaluate nutritional intake 06/12/19 08:53 Consult to Physician [CONS] Stat Comment: Consulting Provider: ALLISON GRAY Physician Instructions: Please call them for consult Reason For Exam: Acute Respiratory Failure, Known to your group 06/13/19 10:23 Consult to Physician [CONS] Routine Comment: Consulting Provider: ZULEYMA VINCENT Physician Instructions: Reason For Exam: Ac resp failure/intubated/CAD s/p PCI/SVT 06/13/19 16:25 Consult to Dietitian/Nutrition [CONS] Routine Physician Instructions: Reason For Exam: Reason for Consult: Evaluate nutritional intake 06/13/19 17:52 Consult to Dietitian/Nutrition [CONS] Routine Physician Instructions: Assess nutrtn needs, initiate, modify, manage TF Reason For Exam: Reason for Consult: Write/Manage Tube Feeding Reason for Consult: Write/Manage Tube Feeding 06/19/19 08:48 Consult to Physician [CONS] Routine Comment: Consulting Provider: JUN HUNTER Physician Instructions: Reason For Exam: Sepsis 06/23/19 09:23 Consult to PICC Line RN [CONS] Routine Reason For Exam: critical patient with poor IV access Type Line:: Midline 07/02/19 16:52 Speech Therapy Evaluation and Treat [CONS] Routine Reason For Exam: FAILED BEDSIDE SCREEN 07/05/19 09:15 Physical Therapy Evaluation and Treat [CONS] Routine Comment: Reason For Exam: placement 07/05/19 10:52 Occupational Therapy Evaluate and Treat [CONS] Routine Comment: Reason For Exam: Debility Hospitalization Condition: Stable Hospital course: 59-year-old female patient with significant history of hypertension GERD depression COPD coronary artery disease CHF was admitted through emergency room with acute hypoxic hypercapnic respiratory failure requiring intubation and ventilatory support. Admitted to ICU evaluated by pulmonary critical, cardiology for A. fib flutter with rapid ventricular rate, started on Cardizem and amiodarone. Not a candidate for anticoagulation due to history of severe GI bleeding. Patient had mild hypotension, improved with holding Blood pressure and diuretic meds. Sputum cultures positive for Pseudomonas, treated with cefepime, ID following. Patient is extubated on 07/01, PT recommended [facility], on pured diet per speech evaluation. Patient was then discharged to subacute rehab in stable condition. 07/01: patient extubated, on 5L o2 n/c, monitor at icu, cont nebs. 07/02: order PT eval, consulted speech. wean off O2 as tolerated. if clinically stable will transfer to tele tomorrow 07/03 transfer to tele, order PT/OT. pending speech eval 07/04; placed on pureed diet, wait for PT eval. on 2L n/c 07/05: Pending PT eval 07/06: need [facility] on discharge 07/07: d/c to [facility] Discharge diagnosis and Mx: /Acute hypoxic and hypercapnic on chronic respiratory failure: Required mechanical ventilation> 96 hours Due to acute COPD exacerbation and underlying pneumonia Placed On nebs, tapering steroids, supportive care Extubated 07/01, pulmonary following Continue oxygen saturation greater than 92% with nasal cannula /sepsis/pneumonia/sputum Pseudomonas 06/11/2019; present on admission ID following , treated with cefepime up to 14 days Sputum cultures again positive Pseudomonas on 06/19/2019 Negative for COVID-19 /Hypertension; moderate control Continue current antihypertensives and PRN hydralazine /Paroxysmal A. fib/flutter; RVR Cont On amiodarone, and Cardizem Cardiology following- s/p digoxin adjusted to 0.125 mg every other day per cardiology Changed amiodarone to 100 mg daily No chronic anticoagulation due to history of GI bleed /History of coronary artery disease/CHF EF 45-50% by echo 08/2018 Low-dose Lasix, continue other cardiac meds /Hypernatremia; resolved monitored sodium levels /History of depression; held antidepressive medications /Ongoing tobacco use; Counseled smoking cessation done for 10 minutes /Obesity; BMI 32.2 Patient needs weight reduction when medically stable /Thrombocytopenia; HIT antibody negative --DVT prophylaxis; Lovenox --Full CODE STATUS Physical exam: General appearance: Present: no acute distress, well-nourished, obese, - EENT Eyes: Present: PERRL, EOM intact - Neck Neck: Present: supple, normal ROM - Respiratory Respiratory effort: normal Respiratory: bilateral: diminished, rhonchi, negative: rales, wheezing - Cardiovascular Rhythm: regular Heart Sounds: Present: S1 & S2 - Extremities Extremities: no ischemia, No edema - Abdominal General gastrointestinal: soft, non-tender, non-distended, normal bowel sounds - Integumentary Integumentary: Present: clear, warm - Psychiatric Psychiatric: other (Alert and awake ) - Neurologic Neurologic: No focal deficits Disposition: [id number]/[id number] Time spent for discharge: 34 minutes Core Measure Documentation - Palliative Care Palliative Care/ Comfort Measures: Not Applicable - Core Measures Any of the following diagnoses?: history only Exam - Constitutional Vitals: Temp Pulse Resp BP Pulse Ox 98.5 F 97 H 21 100/54 96 07/08/19 04:00 07/08/19 14:00 07/08/19 14:00 07/08/19 14:00 07/08/19 14:00 Plan Activity: up only with assistance Weight Bearing Status: Non-Weight Bearing Diet: low fat Follow up with: [facility] [Other] - 3-5 Days Prescriptions: HYDROcodone/APAP 5-325 [[place] 5-325 mg TAB] 1 each PO Q8H PRN #10 tablet PRN Reason: Pain, Moderate (4-6)
[2019-07-08 17:16] VITALS: BP 107/62
== END 2019-07-08 18:06 | DRG 870 ==
LOC: ED 17:04 → CC1 22:48 → IMCU 07-05 10:43 → 4A 07-08 14:04 → IMCU 07-08 14:44
PROVIDERS: ADMIT Internal Medicine; ATTEND Internal Medicine
PROC: 5A1955Z Respiratory Ventilation, Greater than 96 Consecutive Hours (ICD-10-PCS; principal; 2019-06-11)
PROC: 0BH17EZ Insertion of Endotracheal Airway into Trachea, Via Natural or Artificial Opening (ICD-10-PCS; 2019-06-11)
PROC: 4A033R1 Measurement of Arterial Saturation, Peripheral, Percutaneous Approach (ICD-10-PCS; 2019-06-13)
PROC: 05HY33Z Insertion of Infusion Device into Upper Vein, Percutaneous Approach (ICD-10-PCS; 2019-06-23)
DX: A41.9 Sepsis, unspecified organism (principal); J96.21 Acute and chronic respiratory failure with hypoxia; J96.22 Acute and chronic respiratory failure with hypercapnia; J15.1 Pneumonia due to Pseudomonas; J44.1 Chronic obstructive pulmonary disease with (acute) exacerbation; E87.0 Hyperosmolality and hypernatremia; F11.20 Opioid dependence, uncomplicated; G93.40 Encephalopathy, unspecified; J44.0 Chronic obstructive pulmonary disease with (acute) lower respiratory infection; I48.92 Unspecified atrial flutter; I25.10 Atherosclerotic heart disease of native coronary artery without angina pectoris; I11.0 Hypertensive heart disease with heart failure; I50.9 Heart failure, unspecified; K21.9 Gastro-esophageal reflux disease without esophagitis; F17.200 Nicotine dependence, unspecified, uncomplicated; F32.9 Major depressive disorder, single episode, unspecified; E66.9 Obesity, unspecified; D69.6 Thrombocytopenia, unspecified; F41.9 Anxiety disorder, unspecified; I48.0 Paroxysmal atrial fibrillation; G89.29 Other chronic pain; M54.9 Dorsalgia, unspecified; Z79.899 Other long term (current) drug therapy; I25.2 Old myocardial infarction; Z95.5 Presence of coronary angioplasty implant and graft; Z90.49 Acquired absence of other specified parts of digestive tract; Z68.33 Body mass index [BMI] 33.0-33.9, adult; Z82.49 Family history of ischemic heart disease and other diseases of the circulatory system; Z88.5 Allergy status to narcotic agent; Z03.818 Encounter for observation for suspected exposure to other biological agents ruled out
CPT/HCPCS: 36415; 36600; 70450; 71045; 71250; 72125; 74018; 80048; 80053; 80162; 80320; 81001; 82550; 82553; 82728; 82803; 82962; 83615; 83735; 84100; 84145; 84484; 85007; 85025; 85027; 85379; 85610; 86022; 86140; 86850; 86900; 86901; 87040; 87070; 87076; 87086; 87116; 87186; 87205; 93005; 94002; 94003; 94640; 94644; 94760; G0378; G0480; J0282; J0360; J0456; J0692; J0696; J1160; J1650; J1815; J1940; J2060; J2920; J2930; J3010; J3370; J3475; J7030; J7040; J7042; J7050; J7060; J7512; U0003; U0003-CS

== ENCOUNTER 2019-10-05 16:52 | Inpatient (IN) | payer MEDICARE ==
[2019-10-05] MEDS ORDERED: NALOXONE 0.4 MG/1 ML INJ IV ONE (17:12)
--- NOTE | 2019-10-05 17:12 | Emergency Department Report ---
ED Altered Mental Status HPI - General Stated Complaint: AMS PUI?: No Time Seen by Provider: 10/05/19 17:08 Source: EMS, RN notes reviewed, old records reviewed Mode of arrival: Stretcher Limitations: Altered Mental Status - History of Present Illness Initial Comments: This is a 59-year-old female with history of COPD, CAD, CHF, GI bleed, hypertension, hyperlipidemia, depression, paroxysmal atrial fibrillation who presents from [facility] for altered mental status. Patient is currently nonverbal, appears lethargic. She arrived via EMS. MD Complaint: decreased responsiveness -: Gradual, This morning Severity: moderate Consistency of Symptoms: constant Context: COPD, other (Several recent hospitalizations) - Related Data Previous Rx's Medication Instructions Recorded Last Taken Type HYDROcodone/APAP 5-325 [[place] 1 each PO Q8H PRN #10 tablet 07/08/19 Unknown Rx 5-325 mg TAB] dilTIAZem [Cardizem] 60 mg PO QID #120 tablet 07/30/19 Unknown Rx ALPRAZolam [Xanax TAB] 0.25 mg PO Q8H PRN tablet 08/07/19 Unknown Rx Amiodarone [Cordarone 200 MG TAB] 100 mg PO DAILY tablet 08/07/19 Unknown Rx Digoxin [Lanoxin] 0.125 mg PO DAILY@1700 tablet 08/07/19 Unknown Rx QUEtiapine [SEROquel] 300 mg PO BID tablet 08/07/19 Unknown Rx Allergies Allergy/AdvReac Type Severity Reaction Status Date / Time clopidogrel [From Plavix] Allergy Unknown Verified 07/28/19 06:09 hydromorphone [From Dilaudid] Allergy Unknown Verified 09/28/18 21:25 phenobarbital Allergy Unknown Verified 09/28/18 21:25 ED Review of Systems ROS: Stated complaint: AMS Other details as noted in HPI Comment: Unobtainable due to pts medical conditions ED Past Medical Hx - Past Medical History Previous Medical History?: Yes Hx Hypertension: Yes Hx Heart Attack/AMI: Yes Hx Congestive Heart Failure: Yes Hx Diabetes: No Hx Deep Vein Thrombosis: (unknown) Hx GERD: Yes Hx Liver Disease: Yes Hx Psychiatric Treatment: Yes (depression and anxiety) Hx Asthma: No Hx COPD: Yes Hx HIV: No Additional medical history: Atrial fibrillation/flutter, peptic ulcer disease - Surgical History Past Surgical History?: Yes Hx Coronary Stent: Yes Hx Pacemaker: No Hx Internal Defibrillator: No Hx Appendectomy: Yes Additional Surgical History: heart stents, Back surgery, hysterectomy - Social History Smoking Status: Former Smoker - Medications Home Medications: Home Medications Medication Instructions Recorded Confirmed Last Taken Type HYDROcodone/APAP 5-325 [[place] 1 each PO Q8H PRN #10 tablet 07/08/19 10/06/19 Unknown Rx 5-325 mg TAB] dilTIAZem [Cardizem] 60 mg PO QID #120 tablet 07/30/19 10/06/19 Unknown Rx ALPRAZolam [Xanax TAB] 0.25 mg PO Q8H PRN tablet 08/07/19 10/06/19 Unknown Rx Amiodarone [Cordarone 200 MG TAB] 100 mg PO DAILY tablet 08/07/19 10/06/19 Unknown Rx Digoxin [Lanoxin] 0.125 mg PO DAILY@1700 tablet 08/07/19 10/06/19 Unknown Rx QUEtiapine [SEROquel] 300 mg PO BID tablet 08/07/19 10/06/19 Unknown Rx ED Physical Exam - General Limitations: Altered Mental Status General appearance: lethargic, other (Lethargic will not make eye contact) - Head Head exam: Present: atraumatic, normocephalic - Eye Eye exam: Present: normal appearance. Absent: scleral icterus, conjunctival injection - Neck Neck exam: Present: normal inspection, full ROM - Respiratory Respiratory exam: Present: decreased breath sounds. Absent: respiratory distress, wheezes, rales, rhonchi - Cardiovascular Cardiovascular Exam: Present: regular rate, normal rhythm, normal heart sounds. Absent: rubs, gallop - GI/Abdominal GI/Abdominal exam: Present: soft, normal bowel sounds. Absent: distended, tend erness, guarding, rebound - Extremities Exam Extremities exam: Present: normal inspection - Neurological Exam Neurological exam: Present: altered - Psychiatric Psychiatric exam: Present: flat affect - Skin Skin exam: Present: dry, intact, pallor. Absent: rash ED Course Vital Signs 10/05/19 10/05/19 10/05/19 17:04 17:28 17:40 Temperature 99.7 F H 99.8 F H Pulse Rate 101 H Respiratory 18 Rate Blood Pressure 103/57 O2 Sat by Pulse 93 95 Oximetry 10/05/19 10/06/19 10/06/19 23:01 00:00 01:00 Temperature Pulse Rate 105 H 104 H 103 H Respiratory 20 17 17 Rate Blood Pressure 115/70 120/73 O2 Sat by Pulse 94 98 98 Oximetry - Lab Data Result diagrams: 10/06/19 07:17 10/06/19 07:17 Lab Results 10/05/19 10/05/19 10/05/19 Range/Units 17:40 17:40 17:40 WBC 10.0 (4.5-11.0) K/mm3 RBC 4.75 (3.65-5.03) M/mm3 Hgb 13.7 (10.1-14.3) gm/dl Hct 43.6 H (30.3-42.9) % MCV 92 (79-97) fl MCH 29 (28-32) pg MCHC 31 (30-34) % RDW 20.8 H (13.2-15.2) % Plt Count 145 (140-440) K/mm3 Lymph % (Auto) 7.4 L (13.4-35.0) % [place] % (Auto) 10.4 H (0.0-7.3) % Eos % (Auto) 0.0 (0.0-4.3) % Baso % (Auto) 0.5 (0.0-1.8) % Lymph # 0.7 L (1.2-5.4) K/mm3 [place] # 1.0 H (0.0-0.8) K/mm3 Eos # 0.0 (0.0-0.4) K/mm3 Baso # 0.1 (0.0-0.1) K/mm3 Seg Neutrophils % 81.7 H (40.0-70.0) % Seg Neutrophils # 8.1 H (1.8-7.7) K/mm3 PT (12.2-14.9) Sec. INR (0.87-1.13) APTT (24.2-36.6) Sec. ABG pH (7.350-7.450) pH Units ABG pCO2 mm Hg ABG pO2 (80.0-90.0) mm Hg ABG HCO3 (20.0-26.0) mmol/L ABG O2 Saturation (95.0-99.0) % ABG O2 Content (0.0-44) ABG Base Excess (-2.0-3.0) mmol/L ABG Hemoglobin (12.0-16.0) gm/dl ABG Carboxyhemoglobin (0.0-5.0) % ABG Methemoglobin (0.0-1.5) % Oxyhemoglobin (95.0-99.0) % FiO2 % Sodium 140 (137-145) mmol/L Potassium 4.1 (3.6-5.0) mmol/L Chloride 105.1 (98-107) mmol/L Carbon Dioxide 25 (22-30) mmol/L Anion Gap 14 mmol/L BUN 12 (7-17) mg/dL Creatinine 0.4 L (0.6-1.2) mg/dL Estimated GFR > 60 ml/min BUN/Creatinine Ratio 30 % Glucose 91 (65-100) mg/dL POC Glucose (70-105) Lactic Acid 0.60 L (0.7-2.0) mmol/L Calcium 7.4 L (8.4-10.2) mg/dL Total Bilirubin 1.10 (0.1-1.2) mg/dL AST 16 (5-40) units/L ALT 16 (7-56) units/L Alkaline Phosphatase 111 (35-129) units/L Ammonia (25-60) umol/L Total Protein 4.6 L (6.3-8.2) g/dL Albumin 1.9 L (3.9-5) g/dL Albumin/Globulin Ratio 0.7 % TSH (0.270-4.200) mlU/mL Urine Color (Yellow) Urine Turbidity (Clear) Urine pH (5.0-7.0) Ur Specific [place] (1.003-1.030) Urine Protein (Negative) mg/dL Urine Glucose (UA) (Negative) mg/dL Urine Ketones (Negative) mg/dL Urine Blood (Negative) Urine Nitrite (Negative) Urine Bilirubin (Negative) Urine Ictotest (Negative) Urine Urobilinogen (<2.0) mg/dL Ur Leukocyte Esterase (Negative) Urine WBC (Auto) (0.0-6.0) /HPF Urine RBC (Auto) (0.0-6.0) /HPF Urine Bacteria (Auto) (Negative) /HPF Urine Mucus /HPF Salicylates (2.8-20.0) mg/dL Acetaminophen (10.0-30.0) ug/mL 10/05/19 10/05/19 10/05/19 Range/Units 17:40 17:40 17:40 WBC (4.5-11.0) K/mm3 RBC (3.65-5.03) M/mm3 Hgb (10.1-14.3) gm/dl Hct (30.3-42.9) % MCV (79-97) fl MCH (28-32) pg MCHC (30-34) % RDW (13.2-15.2) % Plt Count (140-440) K/mm3 Lymph % (Auto) (13.4-35.0) % [place] % (Auto) (0.0-7.3) % Eos % (Auto) (0.0-4.3) % Baso % (Auto) (0.0-1.8) % Lymph # (1.2-5.4) K/mm3 [place] # (0.0-0.8) K/mm3 Eos # (0.0-0.4) K/mm3 Baso # (0.0-0.1) K/mm3 Seg Neutrophils % (40.0-70.0) % Seg Neutrophils # (1.8-7.7) K/mm3 PT 15.8 H (12.2-14.9) Sec. INR 1.24 H (0.87-1.13) APTT 30.4 (24.2-36.6) Sec. ABG pH (7.350-7.450) pH Units ABG pCO2 mm Hg ABG pO2 (80.0-90.0) mm Hg ABG HCO3 (20.0-26.0) mmol/L ABG O2 Saturation (95.0-99.0) % ABG O2 Content (0.0-44) ABG Base Excess (-2.0-3.0) mmol/L ABG Hemoglobin (12.0-16.0) gm/dl ABG Carboxyhemoglobin (0.0-5.0) % ABG Methemoglobin (0.0-1.5) % Oxyhemoglobin (95.0-99.0) % FiO2 % Sodium (137-145) mmol/L Potassium (3.6-5.0) mmol/L Chloride (98-107) mmol/L Carbon Dioxide (22-30) mmol/L Anion Gap mmol/L BUN (7-17) mg/dL Creatinine (0.6-1.2) mg/dL Estimated GFR ml/min BUN/Creatinine Ratio % Glucose (65-100) mg/dL POC Glucose (70-105) Lactic Acid (0.7-2.0) mmol/L Calcium (8.4-10.2) mg/dL Total Bilirubin (0.1-1.2) mg/dL AST (5-40) units/L ALT (7-56) units/L Alkaline Phosphatase (35-129) units/L Ammonia 206.0 H (25-60) umol/L Total Protein (6.3-8.2) g/dL Albumin (3.9-5) g/dL Albumin/Globulin Ratio % TSH 5.780 H (0.270-4.200) mlU/mL Urine Color (Yellow) Urine Turbidity (Clear) Urine pH (5.0-7.0) Ur Specific [place] (1.003-1.030) Urine Protein (Negative) mg/dL Urine Glucose (UA) (Negative) mg/dL Urine Ketones (Negative) mg/dL Urine Blood (Negative) Urine Nitrite (Negative) Urine Bilirubin (Negative) Urine Ictotest (Negative) Urine Urobilinogen (<2.0) mg/dL Ur Leukocyte Esterase (Negative) Urine WBC (Auto) (0.0-6.0) /HPF Urine RBC (Auto) (0.0-6.0) /HPF Urine Bacteria (Auto) (Negative) /HPF Urine Mucus /HPF Salicylates (2.8-20.0) mg/dL Acetaminophen (10.0-30.0) ug/mL 10/05/19 10/05/19 10/05/19 Range/Units 17:40 17:40 18:18 WBC (4.5-11.0) K/mm3 RBC (3.65-5.03) M/mm3 Hgb (10.1-14.3) gm/dl Hct (30.3-42.9) % MCV (79-97) fl MCH (28-32) pg MCHC (30-34) % RDW (13.2-15.2) % Plt Count (140-440) K/mm3 Lymph % (Auto) (13.4-35.0) % [place] % (Auto) (0.0-7.3) % Eos % (Auto) (0.0-4.3) % Baso % (Auto) (0.0-1.8) % Lymph # (1.2-5.4) K/mm3 [place] # (0.0-0.8) K/mm3 Eos # (0.0-0.4) K/mm3 Baso # (0.0-0.1) K/mm3 Seg Neutrophils % (40.0-70.0) % Seg Neutrophils # (1.8-7.7) K/mm3 PT (12.2-14.9) Sec. INR (0.87-1.13) APTT (24.2-36.6) Sec. ABG pH (7.350-7.450) pH Units ABG pCO2 mm Hg ABG pO2 (80.0-90.0) mm Hg ABG HCO3 (20.0-26.0) mmol/L ABG O2 Saturation (95.0-99.0) % ABG O2 Content (0.0-44) ABG Base Excess (-2.0-3.0) mmol/L ABG Hemoglobin (12.0-16.0) gm/dl ABG Carboxyhemoglobin (0.0-5.0) % ABG Methemoglobin (0.0-1.5) % Oxyhemoglobin (95.0-99.0) % FiO2 % Sodium (137-145) mmol/L Potassium (3.6-5.0) mmol/L Chloride (98-107) mmol/L Carbon Dioxide (22-30) mmol/L Anion Gap mmol/L BUN (7-17) mg/dL Creatinine (0.6-1.2) mg/dL Estimated GFR ml/min BUN/Creatinine Ratio % Glucose (65-100) mg/dL POC Glucose 84 (70-105) Lactic Acid (0.7-2.0) mmol/L Calcium (8.4-10.2) mg/dL Total Bilirubin (0.1-1.2) mg/dL AST (5-40) units/L ALT (7-56) units/L Alkaline Phosphatase (35-129) units/L Ammonia (25-60) umol/L Total Protein (6.3-8.2) g/dL Albumin (3.9-5) g/dL Albumin/Globulin Ratio % TSH (0.270-4.200) mlU/mL Urine Color (Yellow) Urine Turbidity (Clear) Urine pH (5.0-7.0) Ur Specific [place] (1.003-1.030) Urine Protein (Negative) mg/dL Urine Glucose (UA) (Negative) mg/dL Urine Ketones (Negative) mg/dL Urine Blood (Negative) Urine Nitrite (Negative) Urine Bilirubin (Negative) Urine Ictotest (Negative) Urine Urobilinogen (<2.0) mg/dL Ur Leukocyte Esterase (Negative) Urine WBC (Auto) (0.0-6.0) /HPF Urine RBC (Auto) (0.0-6.0) /HPF Urine Bacteria (Auto) (Negative) /HPF Urine Mucus /HPF Salicylates < 0.3 L (2.8-20.0) mg/dL Acetaminophen 5.0 L (10.0-30.0) ug/mL 10/05/19 10/05/19 Range/Units 18:50 20:50 WBC (4.5-11.0) K/mm3 RBC (3.65-5.03) M/mm3 Hgb (10.1-14.3) gm/dl Hct (30.3-42.9) % MCV (79-97) fl MCH (28-32) pg MCHC (30-34) % RDW (13.2-15.2) % Plt Count (140-440) K/mm3 Lymph % (Auto) (13.4-35.0) % [place] % (Auto) (0.0-7.3) % Eos % (Auto) (0.0-4.3) % Baso % (Auto) (0.0-1.8) % Lymph # (1.2-5.4) K/mm3 [place] # (0.0-0.8) K/mm3 Eos # (0.0-0.4) K/mm3 Baso # (0.0-0.1) K/mm3 Seg Neutrophils % (40.0-70.0) % Seg Neutrophils # (1.8-7.7) K/mm3 PT (12.2-14.9) Sec. INR (0.87-1.13) APTT (24.2-36.6) Sec. ABG pH 7.397 (7.350-7.450) pH Units ABG pCO2 45.7 mm Hg ABG pO2 80.7 (80.0-90.0) mm Hg ABG HCO3 27.5 H (20.0-26.0) mmol/L ABG O2 Saturation 95.6 (95.0-99.0) % ABG O2 Content 17.5 (0.0-44) ABG Base Excess 2.1 (-2.0-3.0) mmol/L ABG Hemoglobin 13.3 (12.0-16.0) gm/dl ABG Carboxyhemoglobin 1.4 (0.0-5.0) % ABG Methemoglobin 0.5 (0.0-1.5) % Oxyhemoglobin 93.8 L (95.0-99.0) % FiO2 28 % Sodium (137-145) mmol/L Potassium (3.6-5.0) mmol/L Chloride (98-107) mmol/L Carbon Dioxide (22-30) mmol/L Anion Gap mmol/L BUN (7-17) mg/dL Creatinine (0.6-1.2) mg/dL Estimated GFR ml/min BUN/Creatinine Ratio % Glucose (65-100) mg/dL POC Glucose (70-105) Lactic Acid (0.7-2.0) mmol/L Calcium (8.4-10.2) mg/dL Total Bilirubin (0.1-1.2) mg/dL AST (5-40) units/L ALT (7-56) units/L Alkaline Phosphatase (35-129) units/L Ammonia (25-60) umol/L Total Protein (6.3-8.2) g/dL Albumin (3.9-5) g/dL Albumin/Globulin Ratio % TSH (0.270-4.200) mlU/mL Urine Color [place] (Yellow) Urine Turbidity Cloudy (Clear) Urine pH 5.0 (5.0-7.0) Ur Specific [place] 1.024 (1.003-1.030) Urine Protein 30 mg/dl (Negative) mg/dL Urine Glucose (UA) Neg (Negative) mg/dL Urine Ketones Tr (Negative) mg/dL Urine Blood Sm (Negative) Urine Nitrite Pos (Negative) Urine Bilirubin Sm (Negative) Urine Ictotest Negative (Negative) Urine Urobilinogen 4.0 (<2.0) mg/dL Ur Leukocyte Esterase Tr (Negative) Urine WBC (Auto) 15.0 H (0.0-6.0) /HPF Urine RBC (Auto) 3.0 (0.0-6.0) /HPF Urine Bacteria (Auto) 4+ (Negative) /HPF Urine Mucus 3+ /HPF Salicylates (2.8-20.0) mg/dL Acetaminophen (10.0-30.0) ug/mL - EKG Data -: EKG Interpreted by Me EKG shows normal: sinus rhythm, axis, intervals Rate: tachycardia Interpretation: nonspecific ST-T wave latrice 10/05/19 18:07 EKG obtained at 1751 Sinus tachycardia rate 100 bpm normal axis normal intervals nonspecific ST-T wave findings no ST elevation - Radiology Data Radiology results: report reviewed CT head: No acute findings AP portable chest: No change from prior, cardiomegaly with interstitial disease - Medical Decision Making Acute encephalopathy: Multifactorial: UTI polypharmacy. No respiratory acidosis hypercapnia according to ABG interpretation. Admitted to the hospitalist Critical Care Time: Yes Critical care attestation.: If time is entered above; I have spent that time in minutes in the direct care of this critically ill patient, excluding procedure time. 40 minutes of critical care time excluding procedures were used in the care of the patient. I reviewed electronic record. I discussed treatment plan with the nursing team members at the bedside. I came immediately to the bedside upon patient's arrival. I discussed case with paramedics. Also concern for imminent airway compromise. Patient required multiple interventions and reassessments. ED Disposition Clinical Impression: Acute encephalopathy, UTI (urinary tract infection), Polypharmacy, COPD (chronic obstructive pulmonary disease) Disposition: DC09 OP ADMIT IP TO THIS HOSP Is pt being admited?: Yes Does the pt Need Aspirin: No Condition: Stable
--- NOTE | 2019-10-05 17:52 | XRay Report ---
CHEST 1 VIEW INDICATION: Altered Mental Status COMPARISON: 08/06/2019 FINDINGS: Support devices: Unchanged. Heart: Mildly enlarged but stable Lungs/Pleura: Diffuse interstitial disease, more prominent on the left, may have worsened slightly in the 2 month interval. No significant pleural fluid. No focal consolidation. IMPRESSION: 1. Cardiomegaly and interstitial disease, unchanged to minimally worsened. Signer Name: Rodolfo Bhardwaj MD Signed: 10/05/2019 5:48 PM Workstation Name: [id number]
[2019-10-05 17:55] LABS: Basophils # (Auto) 0.1 K/mm3 (0.0-0.1); Basophils % (Auto) 0.5 % (0.0-1.8); Hematocrit 43.6 % (30.3-42.9); Hemoglobin 13.7 gm/dl (10.1-14.3); Lymphocytes # (Auto) 0.7 K/mm3 (1.2-5.4); Lymphocytes % (Auto) 7.4 % (13.4-35.0); Mean Corpuscular HGB Conc 31 % (30-34); Mean Corpuscular Volume 92 fl (79-97); Monocytes % (Auto) 10.4 % (0.0-7.3); Platelet Count 145 K/mm3 (140-440); Red Blood Count 4.75 M/mm3 (3.65-5.03)
[2019-10-05 17:57] LABS: Red Cell Distribution Width 20.8 % (13.2-15.2)
[2019-10-05 18:13] LABS: Alanine Aminotransferase 16 units/L (7-56); Albumin 1.9 g/dL (3.9-5); Blood Urea Nitrogen 12 mg/dL (7-17); Calcium 7.4 mg/dL (8.4-10.2); Hemolysis Index 9
[2019-10-05 18:15] LABS: BUN/Creatinine Ratio 30
[2019-10-05 18:28] LABS: INR 1.24 (0.87-1.13)
[2019-10-05 18:29] LABS: Partial Thromboplastin Time 30.4 Sec. (24.2-36.6)
--- NOTE | 2019-10-05 18:35 | Cat Scan Report ---
CT head/brain wo con INDICATION / CLINICAL INFORMATION: 59 years Female; Altered Mental Status. TECHNIQUE: Routine CT head without contrast. All CT scans at this location are performed using CT dos e reduction for ALARA by means of automated exposure control. COMPARISON: The study is compared to the previous CT of 07/28/2019. FINDINGS: BRAIN / INTRACRANIAL CONTENTS: The motion degrades the image quality despite repeat imaging. However, there appears be moderate cerebral white matter disease most consistent with microvascular angiopath y. The findings appear to correlate with the previous CT the ventricular system appears unchanged in size and configuration. There is mild cerebral atrophy. There is no gross CT evidence of acute intrac ranial hemorrhage or significant mass effect. ORBITS: No significant abnormality of visualized orbits. SINUSES / MASTOIDS: No significant abnormality in the visualized paranasal sinuses or mastoid air radha ls. CRANIOCERVICAL JUNCTION: No significant abnormality. ADDITIONAL FINDINGS: None. IMPRESSION: 1. The study is limited by motion. However, there appears to be continued a moderate microvascular an giopathy without definitive CT evidence of acute intracranial hemorrhage. Signer Name: Michoacano Soares MD Signed: 10/05/2019 6:31 PM Workstation Name: [id number]
[2019-10-05 19:23] LABS: Bacteria,Urine 4+ /HPF (Negative); Bilirubin,Urine SM (Negative); Blood,Urine SM (Negative); Color,Urine Amber (Yellow); Mucus,Urine 3+ /HPF
[2019-10-05 19:27] LABS: Ictotest,Urine Negative (Negative)
[2019-10-05] MEDS ORDERED: cefTRIAXone/NS 2 GM/100 ML 2 GM/100 ML BAG IV ONE (19:40)
[2019-10-05 21:02] LABS: ABG Base Excess 2.1 mmol/L (-2.0-3.0); ABG HCO3 27.5 mmol/L (20.0-26.0); ABG Methemoglobin 0.5 % (0.0-1.5); ABG Oxygen Saturation 95.6 % (95.0-99.0); ABG PCO2 45.7 mm Hg; ABG PH 7.397 pH Units (7.350-7.450); ABG PO2 80.7 mm Hg (80.0-90.0)
[2019-10-05] MEDS ORDERED: ONDANSETRON 4 MG/2 ML INJ IV PRN (22:46)
[2019-10-05] MEDS ORDERED: MAGNESIUM HYDROXIDE (MOM) ORAL LIQD UDC PO PRN (22:46)
--- NOTE | 2019-10-05 22:54 | History and Physical Report ---
History of Present Illness Date of examination: 10/05/19 Date of admission: 10/05/19 22:15 Chief complaint: Altered mental status History of present illness: 59-year-old female with known history of COPD, coronary artery disease, CHF, hypertension, hyperlipidemia, paroxysmal atrial fibrillation and depression presented to the emergency room today from a long-term facility [facility] for altered mental status. Patient was brought in by EMS and has been nonv erbal. Most of the history was gotten from the ER physician. Work-up today reveals UTI. Patient has been started on empiric IV antibiotics. Past History Past Medical History: CAD, COPD, heart failure, hyperlipidemia, other (History of GI bleed, paroxysmal atrial fibrillation) Past Surgical History: hysterectomy, Other (History of cardiac stents placement, back surgery) Social history: smoking (Patient is a former smoker) Family history: no significant family history Medications and Allergies Allergies Allergy/AdvReac Type Severity Reaction Status Date / Time clopidogrel [From Plavix] Allergy Unknown Verified 07/28/19 06:09 hydromorphone [From Dilaudid] Allergy Unknown Verified 09/28/18 21:25 phenobarbital Allergy Unknown Verified 09/28/18 21:25 Home Medications Medication Instructions Recorded Confirmed Last Taken Type HYDROcodone/APAP 5-325 [[place] 1 each PO Q8H PRN #10 tablet 07/08/19 10/06/19 Unknown Rx 5-325 mg TAB] dilTIAZem [Cardizem] 60 mg PO QID #120 tablet 07/30/19 10/06/19 Unknown Rx ALPRAZolam [Xanax TAB] 0.25 mg PO Q8H PRN tablet 08/07/19 10/06/19 Unknown Rx Amiodarone [Cordarone 200 MG TAB] 100 mg PO DAILY tablet 08/07/19 10/06/19 Unknown Rx Digoxin [Lanoxin] 0.125 mg PO DAILY@1700 tablet 08/07/19 10/06/19 Unknown Rx QUEtiapine [SEROquel] 300 mg PO BID tablet 08/07/19 10/06/19 Unknown Rx Active Meds: Active Medications Acetaminophen (Tylenol) 650 mg PO Q4H PRN PRN Reason: Pain MILD(1-3)/Fever >100.5/PRAJAPATI Ceftriaxone Sodium (Rocephin/Ns 1 Gm/50 Ml) 1 gm in 50 mls @ 100 mls/hr IV Q24HR DOMINICK; Protocol Magnesium Hydroxide (Milk Of Magnesia) 30 ml PO Q4H PRN PRN Reason: Constipation Ondansetron HCl (Zofran) 4 mg IV Q8H PRN PRN Reason: Nausea And Vomiting Sodium Chloride (Sodium Chloride Flush Syringe 10 Ml) 10 ml IV BID DOMINICK Sodium Chloride (Sodium Chloride Flush Syringe 10 Ml) 10 ml IV PRN PRN PRN Reason: LINE FLUSH Review of Systems ROS unobtainable: due to mental status Exam - Constitutional Vitals: Temp Pulse Resp BP Pulse Ox 99.8 F H 101 H 18 103/57 95 10/05/19 17:40 10/05/19 17:04 10/05/19 17:04 10/05/19 17:04 10/05/19 17:28 General appearance: Present: no acute distress, well-nourished - EENT Eyes: Present: PERRL, EOM intact. Absent: scleral icterus ENT: hearing intact, clear oral mucosa, dentition normal - Neck Neck: Present: supple, normal ROM - Respiratory Respiratory effort: normal Respiratory: bilateral: CTA - Cardiovascular Rhythm: regular Heart Sounds: Present: S1 & S2. Absent: gallop, systolic murmur, diastolic murmur, rub - Extremities Extremities: no ischemia, pulses intact, pulses symmetrical, Full ROM Extremity abnormal: edema (1+) Peripheral Pulses: within normal limits - Abdominal General gastrointestinal: Present: soft, non-tender, non-distended, normal bowel sounds. Absent: mass - Integumentary Integumentary: Present: clear, warm, dry - Musculoskeletal Musculoskeletal: strength equal bilaterally - Psychiatric Psychiatric: cooperative - Neurologic Neurologic: CNII-XII intact, no focal deficits, moves all extremities Results - Labs CBC & Chem 7: 10/05/19 17:40 10/05/19 17:40 Labs: Abnormal lab results 10/05/19 10/05/19 10/05/19 Range/Units 17:40 17:40 17:40 Hct 43.6 H (30.3-42.9) % RDW 20.8 H (13.2-15.2) % Lymph % (Auto) 7.4 L (13.4-35.0) % [place] % (Auto) 10.4 H (0.0-7.3) % Lymph # 0.7 L (1.2-5.4) K/mm3 [place] # 1.0 H (0.0-0.8) K/mm3 Seg Neutrophils % 81.7 H (40.0-70.0) % Seg Neutrophils # 8.1 H (1.8-7.7) K/mm3 PT (12.2-14.9) Sec. INR (0.87-1.13) ABG HCO3 (20.0-26.0) mmol/L Oxyhemoglobin (95.0-99.0) % Creatinine 0.4 L (0.6-1.2) mg/dL Lactic Acid 0.60 L (0.7-2.0) mmol/L Calcium 7.4 L (8.4-10.2) mg/dL Ammonia (25-60) umol/L Total Protein 4.6 L (6.3-8.2) g/dL Albumin 1.9 L (3.9-5) g/dL TSH (0.270-4.200) mlU/mL Urine WBC (Auto) (0.0-6.0) /HPF Salicylates (2.8-20.0) mg/dL Acetaminophen (10.0-30.0) ug/mL 10/05/19 10/05/19 10/05/19 Range/Units 17:40 17:40 17:40 Hct (30.3-42.9) % RDW (13.2-15.2) % Lymph % (Auto) (13.4-35.0) % [place] % (Auto) (0.0-7.3) % Lymph # (1.2-5.4) K/mm3 [place] # (0.0-0.8) K/mm3 Seg Neutrophils % (40.0-70.0) % Seg Neutrophils # (1.8-7.7) K/mm3 PT 15.8 H (12.2-14.9) Sec. INR 1.24 H (0.87-1.13) ABG HCO3 (20.0-26.0) mmol/L Oxyhemoglobin (95.0-99.0) % Creatinine (0.6-1.2) mg/dL Lactic Acid (0.7-2.0) mmol/L Calcium (8.4-10.2) mg/dL Ammonia 206.0 H (25-60) umol/L Total Protein (6.3-8.2) g/dL Albumin (3.9-5) g/dL TSH 5.780 H (0.270-4.200) mlU/mL Urine WBC (Auto) (0.0-6.0) /HPF Salicylates (2.8-20.0) mg/dL Acetaminophen (10.0-30.0) ug/mL 10/05/19 10/05/19 10/05/19 Range/Units 17:40 17:40 18:50 Hct (30.3-42.9) % RDW (13.2-15.2) % Lymph % (Auto) (13.4-35.0) % [place] % (Auto) (0.0-7.3) % Lymph # (1.2-5.4) K/mm3 [place] # (0.0-0.8) K/mm3 Seg Neutrophils % (40.0-70.0) % Seg Neutrophils # (1.8-7.7) K/mm3 PT (12.2-14.9) Sec. INR (0.87-1.13) ABG HCO3 (20.0-26.0) mmol/L Oxyhemoglobin (95.0-99.0) % Creatinine (0.6-1.2) mg/dL Lactic Acid (0.7-2.0) mmol/L Calcium (8.4-10.2) mg/dL Ammonia (25-60) umol/L Total Protein (6.3-8.2) g/dL Albumin (3.9-5) g/dL TSH (0.270-4.200) mlU/mL Urine WBC (Auto) 15.0 H (0.0-6.0) /HPF Salicylates < 0.3 L (2.8-20.0) mg/dL Acetaminophen 5.0 L (10.0-30.0) ug/mL 10/05/19 Range/Units 20:50 Hct (30.3-42.9) % RDW (13.2-15.2) % Lymph % (Auto) (13.4-35.0) % [place] % (Auto) (0.0-7.3) % Lymph # (1.2-5.4) K/mm3 [place] # (0.0-0.8) K/mm3 Seg Neutrophils % (40.0-70.0) % Seg Neutrophils # (1.8-7.7) K/mm3 PT (12.2-14.9) Sec. INR (0.87-1.13) ABG HCO3 27.5 H (20.0-26.0) mmol/L Oxyhemoglobin 93.8 L (95.0-99.0) % Creatinine (0.6-1.2) mg/dL Lactic Acid (0.7-2.0) mmol/L Calcium (8.4-10.2) mg/dL Ammonia (25-60) umol/L Total Protein (6.3-8.2) g/dL Albumin (3.9-5) g/dL TSH (0.270-4.200) mlU/mL Urine WBC (Auto) (0.0-6.0) /HPF Salicylates (2.8-20.0) mg/dL Acetaminophen (10.0-30.0) ug/mL Assessment and Plan - Patient Problems (1) UTI (urinary tract infection) Current Visit: Yes Status: Acute Plan to address problem: Patient has been placed on empiric IV antibiotics. We will await urine culture result. (2) Acute encephalopathy Current Visit: Yes Status: Acute Plan to address problem: Possibly secondary to the underlying UTI versus polypharmacy. Will monitor mental status. (3) Polypharmacy Current Visit: Yes Status: Acute Plan to address problem: We will review patient's medications prior to discharge. (4) DVT prophylaxis Current Visit: No Status: Acute Plan to address problem: Patient placed on subcutaneous heparin. (5) Full code status Current Visit: Yes Status: Acute
[2019-10-06 07:59] LABS: Basophils # (Auto) 0.1 K/mm3 (0.0-0.1); Basophils % (Auto) 0.8 % (0.0-1.8); Eosinophils % (Auto) 0.3 % (0.0-4.3); Hemoglobin 12.9 gm/dl (10.1-14.3); Lymphocytes % (Auto) 13.2 % (13.4-35.0); Mean Corpuscular HGB Conc 32 % (30-34); Mean Corpuscular Volume 92 fl (79-97); Monocytes # (Auto) 1.1 K/mm3 (0.0-0.8); Monocytes % (Auto) 14.3 % (0.0-7.3); Platelet Count 135 K/mm3 (140-440); Red Blood Count 4.46 M/mm3 (3.65-5.03)
[2019-10-06 08:06] LABS: Red Cell Distribution Width 21.3 % (13.2-15.2)
[2019-10-06 08:14] LABS: INR 1.18 (0.87-1.13)
[2019-10-06 08:43] LABS: Blood Urea Nitrogen 13 mg/dL (7-17); Calcium 7.6 mg/dL (8.4-10.2); Hemolysis Index 10
[2019-10-06 08:46] LABS: BUN/Creatinine Ratio 33
[2019-10-06] MEDS: cefTRIAXone/NS 1 GM/50 ML 1 GM/50 ML BAG IV SCH (09:16)
[2019-10-06] MEDS: LACTULOSE 20 GM/30 ML ORAL LIQD PO SCH ×2 (13:12→17:50)
[2019-10-06] MEDS: ASPIRIN 325 MG TAB PO SCH (13:32)
[2019-10-06] MEDS ORDERED: AMIODARONE 150 MG in DEXTROSE 5% IN WATER 97 ML IV ONE (14:13)
[2019-10-06] MEDS ORDERED: METOPROLOL TARTRATE 5 MG/5 ML INJ IV SCH (15:00)
--- NOTE | 2019-10-06 15:46 | Progress Note ---
Assessment and Plan Sustained SVT - start on metoprolol iv, consult cardiology - foow serial EKG, and CE UTI (urinary tract infection) -Patient has been placed on empiric IV antibiotics. We will await urine culture result. Acute encephalopathy -Possibly secondary to the underlying UTI versus polypharmacy. Will monitor mental status. - CT head unremarkable, will also obtain MRI brain h/o paroxysmal atrial fib - cont BB for now - not on AC for h/o GI bleed Polypharmacy, likely -We will review patient's medications prior to discharge. - hold sedatives for now COPD, w/o exacerbation - nebs as needed, supplemental O2 with N/c -- DVT prophylaxis Patient placed on subcutaneous heparin. --Full code status Current Visit: Yes Status: Acute 10/05: remain confused, tearfull, does not follow commend, placed on restarinted. intermittently on SVTs on tle for minutes. started on BB, consult cardiology. also get MRI brain for AMS. Brief history: 59 y/o female with h/o COPD, paroxysmal atrial fib w/o chronic AC for GI bleed presented to the hospital yesterday from the senior living where she resides, with complaints of altered mental status from the senior living staff, unable to be fully aroused. She was evaluated in the emergency room and admitted to the telemetry unit. On presentation, she was in the sinus rhythm, but today while being observed on telemetry and there were multiple, sustained runs of wide- complex tachycardia with right bundle branch morphology. Differential diagnosis included rapid atrial flutter with aberrant conduction versus sustained ventricular tachycardia. Laboratory exam shows the potassium level is normal at 4.0, TSH is mildly elevated at 5.7. Chest x-ray shows mild interstitial changes, which the radiologist describes as mostly chronic. Subjective Date of service: 10/06/19 Interval history: Patient seen and examined remains very confused and unable to follow commend noted on sustained SVTs on tele patient poor historian Objective - Constitutional Vitals: Vital Signs - 12hr 10/06/19 10/06/19 10/06/19 04:49 08:26 08:36 Temperature 98.7 F 98.9 F Pulse Rate 103 H 102 H Respiratory 20 20 20 Rate Blood Pressure 104/71 125/70 O2 Sat by Pulse 96 90 Oximetry 10/06/19 14:43 Temperature Pulse Rate 106 H Respiratory Rate Blood Pressure 117/75 O2 Sat by Pulse Oximetry General appearance: Present: mild distress, other (confused) - EENT Eyes: PERRL, EOM intact ENT: hearing intact, clear oral mucosa Ears: bilateral: normal - Neck Neck: supple, normal ROM - Respiratory Respiratory effort: normal Respiratory: bilateral: CTA - Cardiovascular Rhythm: other (tachycardic) Heart Sounds: Present: S1 & S2. Absent: gallop, rub Extremities: pulses intact, No edema, normal color, Full ROM - Gastrointestinal General gastrointestinal: Present: soft, non-tender, non-distended, normal bowel sounds - Integumentary Integumentary: clear, warm, dry - Musculoskeletal Musculoskeletal: 1, strength equal bilaterally - Neurologic Neurologic: moves all extremities - Psychiatric Psychiatric: no appropriate mood/affect, no intact judgment & insight, no memory intact - Labs CBC & Chem 7: 10/06/19 07:17 10/06/19 07:17 Labs: Abnormal lab results 10/05/19 10/05/19 10/05/19 Range/Units 17:40 17:40 17:40 Hct 43.6 H (30.3-42.9) % RDW 20.8 H (13.2-15.2) % Plt Count (140-440) K/mm3 Lymph % (Auto) 7.4 L (13.4-35.0) % [place] % (Auto) 10.4 H (0.0-7.3) % Lymph # 0.7 L (1.2-5.4) K/mm3 [place] # 1.0 H (0.0-0.8) K/mm3 Seg Neutrophils % 81.7 H (40.0-70.0) % Seg Neutrophils # 8.1 H (1.8-7.7) K/mm3 PT (12.2-14.9) Sec. INR (0.87-1.13) ABG HCO3 (20.0-26.0) mmol/L Oxyhemoglobin (95.0-99.0) % Chloride (98-107) mmol/L Creatinine 0.4 L (0.6-1.2) mg/dL Lactic Acid 0.60 L (0.7-2.0) mmol/L Calcium 7.4 L (8.4-10.2) mg/dL Ammonia (25-60) umol/L Total Protein 4.6 L (6.3-8.2) g/dL Albumin 1.9 L (3.9-5) g/dL TSH (0.270-4.200) mlU/mL Urine WBC (Auto) (0.0-6.0) /HPF Salicylates (2.8-20.0) mg/dL Acetaminophen (10.0-30.0) ug/mL 10/05/19 10/05/19 10/05/19 Range/Units 17:40 17:40 17:40 Hct (30.3-42.9) % RDW (13.2-15.2) % Plt Count (140-440) K/mm3 Lymph % (Auto) (13.4-35.0) % [place] % (Auto) (0.0-7.3) % Lymph # (1.2-5.4) K/mm3 [place] # (0.0-0.8) K/mm3 Seg Neutrophils % (40.0-70.0) % Seg Neutrophils # (1.8-7.7) K/mm3 PT 15.8 H (12.2-14.9) Sec. INR 1.24 H (0.87-1.13) ABG HCO3 (20.0-26.0) mmol/L Oxyhemoglobin (95.0-99.0) % Chloride (98-107) mmol/L Creatinine (0.6-1.2) mg/dL Lactic Acid (0.7-2.0) mmol/L Calcium (8.4-10.2) mg/dL Ammonia 206.0 H (25-60) umol/L Total Protein (6.3-8.2) g/dL Albumin (3.9-5) g/dL TSH 5.780 H (0.270-4.200) mlU/mL Urine WBC (Auto) (0.0-6.0) /HPF Salicylates (2.8-20.0) mg/dL Acetaminophen (10.0-30.0) ug/mL 10/05/19 10/05/19 10/05/19 Range/Units 17:40 17:40 18:50 Hct (30.3-42.9) % RDW (13.2-15.2) % Plt Count (140-440) K/mm3 Lymph % (Auto) (13.4-35.0) % [place] % (Auto) (0.0-7.3) % Lymph # (1.2-5.4) K/mm3 [place] # (0.0-0.8) K/mm3 Seg Neutrophils % (40.0-70.0) % Seg Neutrophils # (1.8-7.7) K/mm3 PT (12.2-14.9) Sec. INR (0.87-1.13) ABG HCO3 (20.0-26.0) mmol/L Oxyhemoglobin (95.0-99.0) % Chloride (98-107) mmol/L Creatinine (0.6-1.2) mg/dL Lactic Acid (0.7-2.0) mmol/L Calcium (8.4-10.2) mg/dL Ammonia (25-60) umol/L Total Protein (6.3-8.2) g/dL Albumin (3.9-5) g/dL TSH (0.270-4.200) mlU/mL Urine WBC (Auto) 15.0 H (0.0-6.0) /HPF Salicylates < 0.3 L (2.8-20.0) mg/dL Acetaminophen 5.0 L (10.0-30.0) ug/mL 10/05/19 10/06/19 10/06/19 Range/Units 20:50 07:17 07:17 Hct (30.3-42.9) % RDW 21.3 H (13.2-15.2) % Plt Count 135 L (140-440) K/mm3 Lymph % (Auto) 13.2 L (13.4-35.0) % [place] % (Auto) 14.3 H (0.0-7.3) % Lymph # 1.0 L (1.2-5.4) K/mm3 [place] # 1.1 H (0.0-0.8) K/mm3 Seg Neutrophils % 71.4 H (40.0-70.0) % Seg Neutrophils # (1.8-7.7) K/mm3 PT 15.2 H (12.2-14.9) Sec. INR 1.18 H (0.87-1.13) ABG HCO3 27.5 H (20.0-26.0) mmol/L Oxyhemoglobin 93.8 L (95.0-99.0) % Chloride (98-107) mmol/L Creatinine (0.6-1.2) mg/dL Lactic Acid (0.7-2.0) mmol/L Calcium (8.4-10.2) mg/dL Ammonia (25-60) umol/L Total Protein (6.3-8.2) g/dL Albumin (3.9-5) g/dL TSH (0.270-4.200) mlU/mL Urine WBC (Auto) (0.0-6.0) /HPF Salicylates (2.8-20.0) mg/dL Acetaminophen (10.0-30.0) ug/mL 10/06/19 10/06/19 Range/Units 07:17 13:11 Hct (30.3-42.9) % RDW (13.2-15.2) % Plt Count (140-440) K/mm3 Lymph % (Auto) (13.4-35.0) % Drew % (Auto) (0.0-7.3) % Lymph # (1.2-5.4) K/mm3 [place] # (0.0-0.8) K/mm3 Seg Neutrophils % (40.0-70.0) % Seg Neutrophils # (1.8-7.7) K/mm3 PT (12.2-14.9) Sec. INR (0.87-1.13) ABG HCO3 (20.0-26.0) mmol/L Oxyhemoglobin (95.0-99.0) % Chloride 108.0 H (98-107) mmol/L Creatinine 0.4 L (0.6-1.2) mg/dL Lactic Acid (0.7-2.0) mmol/L Calcium 7.6 L (8.4-10.2) mg/dL Ammonia 132.0 H (25-60) umol/L Total Protein (6.3-8.2) g/dL Albumin (3.9-5) g/dL TSH (0.270-4.200) mlU/mL Urine WBC (Auto) (0.0-6.0) /HPF Salicylates (2.8-20.0) mg/dL Acetaminophen (10.0-30.0) ug/mL - Imaging and cardiology CT Scan - head: report reviewed
[2019-10-06] MEDS ORDERED: IPRATROPIUM/ALBUTEROL SULFATE 3 ML AMPUL.NEB IH SCH (16:00)
--- NOTE | 2019-10-06 17:41 | Consultation ---
History of Present Illness Consult date: 10/06/19 Consult reason: tachycardia History of present illness: The patient is a 59-year-old woman with chronic lung disease, who has had mu ltiple, recent admissions to this hospital for COPD exacerbation. She also has coronary artery disease and paroxysmal atrial fibrillation. Her coronary artery disease is stable and asymptomatic, with a chronic total occlusion of the right coronary artery and a patent stent in the mid LAD described on previous cardiac catheterization. Left ventricular systolic function has been well-preserved, an echocardiogram done in this hospital 2 months ago showed an ejection fraction 50 to 55%. She has been maintained on amiodarone, digitalis and Cardizem for her atrial fibrillation. She has previously been determined a heart bleeding risk for chronic oral anticoagulation. She presented to the [facility] yesterday from the [facility], with complaints of altered mental status from the [facility] staff, unable to be fully aroused. She was evaluated in the emergency room and admitted to the telemetry unit. On presentation, she was in the sinus rhythm, but today while being observed on telemetry and there were multiple, sustained runs of wide- complex tachycardia with right bundle branch morphology. Differential diagnosis included rapid atrial flutter with aberrant conduction versus sustained ventricular tachycardia. Laboratory exam shows the potassium level is normal at 4.0, TSH is mildly elevated at 5.7. Chest x-ray shows mild interstitial changes, which the rad iologist describes as mostly chronic. Past History Past Medical History: atrial fib, CAD, COPD, heart failure, hyperlipidemia, other (History of GI bleed, paroxysmal atrial fibrillation) Past Surgical History: hysterectomy, Other (History of cardiac stents placement, back surgery) Social history: smoking (Patient is a former smoker) Family history: no significant family history Medications and Allergies Allergies Allergy/AdvReac Type Severity Reaction Status Date / Time clopidogrel [From Plavix] Allergy Unknown Verified 07/28/19 06:09 hydromorphone [From Dilaudid] Allergy Unknown Verified 09/28/18 21:25 phenobarbital Allergy Unknown Verified 09/28/18 21:25 Home Medications Medication Instructions Recorded Confirmed Last Taken Type HYDROcodone/APAP 5-325 [[place] 1 each PO Q8H PRN #10 tablet 07/08/19 10/06/19 Unknown Rx 5-325 mg TAB] dilTIAZem [Cardizem] 60 mg PO QID #120 tablet 07/30/19 10/06/19 Unknown Rx ALPRAZolam [Xanax TAB] 0.25 mg PO Q8H PRN tablet 08/07/19 10/06/19 Unknown Rx Amiodarone [Cordarone 200 MG TAB] 100 mg PO DAILY tablet 08/07/19 10/06/19 Unknown Rx Digoxin [Lanoxin] 0.125 mg PO DAILY@1700 tablet 08/07/19 10/06/19 Unknown Rx QUEtiapine [SEROquel] 300 mg PO BID tablet 08/07/19 10/06/19 Unknown Rx Active Meds: Active Medications Acetaminophen (Tylenol) 650 mg PO Q4H PRN PRN Reason: Pain MILD(1-3)/Fever >100.5/PRAJAPATI Albuterol/Ipratropium (Duoneb *Not For Prn Use*) 1 ampul IH TIDRT [facility] Alprazolam (Xanax) 0.25 mg PO Q8H PRN PRN Reason: Anxiety Aspirin (Aspirin) 325 mg PO QDAY [facility] Last Admin: 10/06/19 13:32 Dose: 325 mg Documented by: Atorvastatin Calcium (Lipitor) 40 mg PO QHS [facility] Ceftriaxone Sodium (Rocephin/Ns 1 Gm/50 Ml) 1 gm in 50 mls @ 100 mls/hr IV Q24HR [facility]; Protocol Last Admin: 10/06/19 09:16 Dose: 100 mls/hr Documented by: Lactulose (Cephulac) 20 gm PO Q6HR [facility] Last Admin: 10/06/19 13:12 Dose: 20 gm Documented by: Magnesium Hydroxide (Milk Of Magnesia) 30 ml PO Q4H PRN PRN Reason: Constipation Metoprolol Tartrate (Metoprolol) 50 mg PO Q8H [facility] Ondansetron HCl (Zofran) 4 mg IV Q8H PRN PRN Reason: Nausea And Vomiting Sodium Chloride (Sodium Chloride Flush Syringe 10 Ml) 10 ml IV BID [facility] Last Admin: 10/06/19 09:16 Dose: 10 ml Documented by: Sodium Chloride (Sodium Chloride Flush Syringe 10 Ml) 10 ml IV PRN PRN PRN Reason: LINE FLUSH Review of Systems ROS unobtainable: due to mental status Physical Examination Vital Signs Temp Pulse Resp BP Pulse Ox 99.7 F H 101 H 18 103/57 93 10/05/19 17:04 10/05/19 17:04 10/05/19 17:04 10/05/19 17:04 10/05/19 17:04 General appearance: no acute distress HEENT: Positive: PERRL Cardiac: Positive: Reg Rate and Rhythm Lungs: Positive: Decreased Breath Sounds Neuro: Positive: Grossly Intact Abdomen: Positive: Soft Female genitourinary: deferred Skin: Positive: Clear Extremities: Absent: edema Results 10/06/19 07:17 10/06/19 07:17 Cardiac Enzymes 10/05/19 Range/Units 17:40 AST 16 (5-40) units/L Coagulation 10/05/19 10/06/19 Range/Units 17:40 07:17 PT 15.8 H 15.2 H (12.2-14.9) Sec. INR 1.24 H 1.18 H (0.87-1.13) APTT 30.4 (24.2-36.6) Sec. CBC 10/05/19 10/06/19 Range/Units 17:40 07:17 WBC 10.0 7.4 (4.5-11.0) K/mm3 RBC 4.75 4.46 (3.65-5.03) M/mm3 Hgb 13.7 12.9 (10.1-14.3) gm/dl Hct 43.6 H 41.0 (30.3-42.9) % Plt Count 145 135 L (140-440) K/mm3 Lymph # 0.7 L 1.0 L (1.2-5.4) K/mm3 [place] # 1.0 H 1.1 H (0.0-0.8) K/mm3 Eos # 0.0 0.0 (0.0-0.4) K/mm3 Baso # 0.1 0.1 (0.0-0.1) K/mm3 Comprehensive Metabolic Panel 10/05/19 10/06/19 Range/Units 17:40 07:17 Sodium 140 144 (137-145) mmol/L Potassium 4.1 4.0 (3.6-5.0) mmol/L Chloride 105.1 108.0 H (98-107) mmol/L Carbon Dioxide 25 27 (22-30) mmol/L BUN 12 13 (7-17) mg/dL Creatinine 0.4 L 0.4 L (0.6-1.2) mg/dL Glucose 91 80 (65-100) mg/dL Calcium 7.4 L 7.6 L (8.4-10.2) mg/dL AST 16 (5-40) units/L ALT 16 (7-56) units/L Alkaline Phosphatase 111 (35-129) units/L Total Protein 4.6 L (6.3-8.2) g/dL Albumin 1.9 L (3.9-5) g/dL EKG interpretations - Telemetry EKG Rhythm: Sinus Rhythm Assessment and Plan - Patient Problems (1) Sustained ventricular tachycardia Current Visit: Yes Status: Acute Plan to address problem: We will check a digoxin level and magnesium level. Digoxin, amiodarone and Cardizem have not been continued on this admission. We will instead use metoprolol 50 mg p.o. every 8 hours. Further cardiac evaluation and management will depend on clinical course, cardiac ischemic reevaluation prior to discharge.
[2019-10-06] MEDS ORDERED: METOPROLOL TARTRATE 5 MG/5 ML INJ IV ONE (17:55)
[2019-10-06] MEDS: METOPROLOL TARTRATE 50 MG TAB PO SCH (18:13)
[2019-10-06] MEDS: IPRATROPIUM/ALBUTEROL SULFATE 3 ML AMPUL.NEB IH SCH ×2 (18:28→21:51)
[2019-10-06] MEDS ORDERED: METOPROLOL TARTRATE 5 MG/5 ML INJ IV PRN (18:35)
[2019-10-06] MEDS: ACETAMINOPHEN 325 MG TAB PO PRN (22:51)
[2019-10-06] MEDS: ALPRAZolam 0.25 MG TAB PO PRN (22:52)
[2019-10-07] MEDS: LACTULOSE 20 GM/30 ML ORAL LIQD PO SCH ×4 (00:21→18:37)
[2019-10-07] MEDS: METOPROLOL TARTRATE 50 MG TAB PO SCH ×3 (01:46→18:37)
--- NOTE | 2019-10-07 10:00 | Consultation ---
History of Present Illness Consult date: 10/07/19 Reason for Consult: Altered mental status Chief complaint: Altered mental status History of present illness: Patient is a 59 y/o woman w/ a h/o CAD, COPD, CHF, HTN, HLD, PAF, and depression. She was admitted 2 days ago from a long term facility. Patient was admitted due to altered mental status. On arrive in ER, patient was nonverbal and lethargic on admission. Patient was found to have a UTI, hypercapnia, and hyperammonemia on admission. She is now more alert, awake, and conversant, however is still confused. Past History Past Medical History: atrial fib, CAD, COPD, heart failure, hyperlipidemia, other (History of GI bleed, paroxysmal atrial fibrillation) Past Surgical History: hysterectomy, Other (History of cardiac stents placement, back surgery) Social history: smoking (Patient is a former smoker) Family history: no significant family history Medications and Allergies Allergies Allergy/AdvReac Type Severity Reaction Status Date / Time clopidogrel [From Plavix] Allergy Unknown Verified 07/28/19 06:09 hydromorphone [From Dilaudid] Allergy Unknown Verified 09/28/18 21:25 phenobarbital Allergy Unknown Verified 09/28/18 21:25 Home Medications Medication Instructions Recorded Confirmed Last Taken Type HYDROcodone/APAP 5-325 [[place] 1 each PO Q8H PRN #10 tablet 07/08/19 10/06/19 Unknown Rx 5-325 mg TAB] dilTIAZem [Cardizem] 60 mg PO QID #120 tablet 07/30/19 10/06/19 Unknown Rx ALPRAZolam [Xanax TAB] 0.25 mg PO Q8H PRN tablet 08/07/19 10/06/19 Unknown Rx Amiodarone [Cordarone 200 MG TAB] 100 mg PO DAILY tablet 08/07/19 10/06/19 Unknown Rx Digoxin [Lanoxin] 0.125 mg PO DAILY@1700 tablet 08/07/19 10/06/19 Unknown Rx QUEtiapine [SEROquel] 300 mg PO BID tablet 08/07/19 10/06/19 Unknown Rx Active Meds: Active Medications Acetaminophen (Tylenol) 650 mg PO Q4H PRN PRN Reason: Pain MILD(1-3)/Fever >100.5/PRAJAPATI Last Admin: 10/06/19 22:51 Dose: 650 mg Documented by: Albuterol/Ipratropium (Duoneb *Not For Prn Use*) 1 ampul IH TIDRT [facility] Last Admin: 10/06/19 21:51 Dose: 1 ampul Documented by: Alprazolam (Xanax) 0.25 mg PO Q8H PRN PRN Reason: Anxiety Last Admin: 10/06/19 22:52 Dose: 0.25 mg Documented by: Aspirin (Aspirin) 325 mg PO QDAY [facility] Last Admin: 10/06/19 13:32 Dose: 325 mg Documented by: Atorvastatin Calcium (Lipitor) 40 mg PO QHS [facility] Last Admin: 10/06/19 22:52 Dose: 40 mg Documented by: Ceftriaxone Sodium (Rocephin/Ns 1 Gm/50 Ml) 1 gm in 50 mls @ 100 mls/hr IV Q24HR [facility]; Protocol Last Admin: 10/06/19 09:16 Dose: 100 mls/hr Documented by: Lactulose (Cephulac) 20 gm PO Q6HR [facility] Last Admin: 10/07/19 06:23 Dose: 20 gm Documented by: Magnesium Hydroxide (Milk Of Magnesia) 30 ml PO Q4H PRN PRN Reason: Constipation Metoprolol Tartrate (Metoprolol) 50 mg PO Q8H [facility] Last Admin: 10/07/19 01:46 Dose: 50 mg Documented by: Metoprolol Tartrate (Metoprolol) 5 mg IV Q4H PRN PRN Reason: Tachyarrhythmias Ondansetron HCl (Zofran) 4 mg IV Q8H PRN PRN Reason: Nausea And Vomiting Sodium Chloride (Sodium Chloride Flush Syringe 10 Ml) 10 ml IV BID [facility] Last Admin: 10/06/19 23:02 Dose: 10 ml Documented by: Sodium Chloride (Sodium Chloride Flush Syringe 10 Ml) 10 ml IV PRN PRN PRN Reason: LINE FLUSH Review of Systems ROS unobtainable: due to mental status Physical Examination - Vital Signs Vital Signs: Vital Signs Temp Pulse Resp BP Pulse Ox 99.7 F H 101 H 18 103/57 93 10/05/19 17:04 10/05/19 17:04 10/05/19 17:04 10/05/19 17:04 10/05/19 17:04 - Physical Exam Narrative exam: Patient is alert, awake, oriented to self and year, and knows who the president is, follows 2-step commands. No dysarthria or aphasia noted. PERRL, EOMI, VFF, tongue midline, bilaterally intact to LT, no facial weakness noted. 5/5 strength in b/l UE, 5/5 in b/l LE. Bilaterally intact light touch. Results - Laboratory Findings CBC and BMP: 10/06/19 07:17 10/06/19 07:17 Abnormal Lab Findings: Abnormal Labs 10/05/19 10/05/19 10/05/19 17:40 17:40 17:40 Hct 43.6 H RDW 20.8 H Plt Count Lymph % (Auto) 7.4 L [place] % (Auto) 10.4 H Lymph # 0.7 L [place] # 1.0 H Seg Neutrophils % 81.7 H Seg Neutrophils # 8.1 H PT INR ABG HCO3 Oxyhemoglobin Chloride Creatinine 0.4 L Lactic Acid 0.60 L Calcium 7.4 L Ammonia Total Protein 4.6 L Albumin 1.9 L TSH Urine WBC (Auto) Digoxin Salicylates Acetaminophen 10/05/19 10/05/19 10/05/19 17:40 17:40 17:40 Hct RDW Plt Count Lymph % (Auto) [place] % (Auto) Lymph # [place] # Seg Neutrophils % Seg Neutrophils # PT 15.8 H INR 1.24 H ABG HCO3 Oxyhemoglobin Chloride Creatinine Lactic Acid Calcium Ammonia 206.0 H Total Protein Albumin TSH 5.780 H Urine WBC (Auto) Digoxin Salicylates Acetaminophen 10/05/19 10/05/19 10/05/19 17:40 17:40 18:50 Hct RDW Plt Count Lymph % (Auto) [place] % (Auto) Lymph # [place] # Seg Neutrophils % Seg Neutrophils # PT INR ABG HCO3 Oxyhemoglobin Chloride Creatinine Lactic Acid Calcium Ammonia Total Protein Albumin TSH Urine WBC (Auto) 15.0 H Digoxin Salicylates < 0.3 L Acetaminophen 5.0 L 10/05/19 10/06/19 10/06/19 20:50 07:17 07:17 Hct RDW 21.3 H Plt Count 135 L Lymph % (Auto) 13.2 L [place] % (Auto) 14.3 H Lymph # 1.0 L [place] # 1.1 H Seg Neutrophils % 71.4 H Seg Neutrophils # PT 15.2 H INR 1.18 H ABG HCO3 27.5 H Oxyhemoglobin 93.8 L Chloride Creatinine Lactic Acid Calcium Ammonia Total Protein Albumin TSH Urine WBC (Auto) Digoxin Salicylates Acetaminophen 10/06/19 10/06/19 10/06/19 07:17 13:11 20:09 Hct RDW Plt Count Lymph % (Auto) [place] % (Auto) Lymph # [place] # Seg Neutrophils % Seg Neutrophils # PT INR ABG HCO3 Oxyhemoglobin Chloride 108.0 H Creatinine 0.4 L Lactic Acid Calcium 7.6 L Ammonia 132.0 H Total Protein Albumin TSH Urine WBC (Auto) Digoxin 0.3 L Salicylates Acetaminophen Assessment and Plan Patient is a 59 y/o woman w/ a h/o CAD, COPD, CHF, HTN, HLD, PAF, and depression, who p/w altered mental status. According to the patient's clinical findings, it is likely that she has metabolic encephalopathy, as she was found to have a UTI, hypercapnia, intermittent V-tach, and hyperammonemia on admission. Plan: 1. Metabolic Encephalopathy: - CT head: No acute abnormalities - Unable to perform EEG at this facility at this time. - Mental status is improved from admission, however still has some encephalopathy, which will likely improve with correction of metabolic abnormalities/infections. - Continue to correct infections an metabolic abnormalities per primary team. - WIll continue to monitor patient. Thank you for allowing me to take part in the care of this patient. Lorenzo Olosn MD Neurology This clinical encounter was provided via live telemedicine platform. Consultative service was provided for neurology to support local providers. The Acute Teleneurology team should be contacted with any neurologic worsening or clinical changes, new test results, or new patient history that is reported to or discovered by the local team following completion of the teleneurology consultation, specifically that which has the potential to impact the co nsultative recommendations. Patient/Family was informed the Neurology Consult would happen via TeleHealth consult by way of interactive audio and video telecommunications and consented to receiving care in this manner. Due to the potential for life-threatening deterioration due to underlying neuro logic illness, and limited resources available for patient care, telemedicine was used as means of patient care. Telemedicine consultation is limited in the extent of physical exam that can be virtually provided. Time spent evaluating patient includes time for face to face visit via telemedicine, review of medical records, imaging studies and discussion of findings with providers, the patient and/or family.
--- NOTE | 2019-10-07 10:31 | Progress Note ---
Assessment and Plan Episode of sustained runs of wide-complex tachycardia with right bundle branch on metoprolol for suppression no reoccurrence overnight TSH of 5.7 and dig level at 0.3. Hx of Paroxysmal Atrial flutter/afib/MAT not on anticoagulation secondary to history of melena and anemia. History of GA/Coronary artery disease 07/2019 echo: normal LVEF 50-55% 2017 [facility] at [facility]: [employer] of the RCA recommend for medical therapy. She did undergo PCI of the mid LAD using bare metal stent. Altered mental status -reason for admission COPD on home oxygen Pre-discharge Lexiscan stress thallium test for cardiac reassessment. Subjective Date of service: 10/07/19 Interval history: Patient is alert with confusion. No distress noted. Stable sinus rhythm on telemetry. Objective Vital Signs Temp Pulse Pulse Resp Resp BP Pulse Ox 10/07/19 07:56 98.0 F 71 150 H 131/64 91 10/07/19 06:00 69 10/07/19 03:39 98.0 F 69 18 132/69 94 10/07/19 01:46 94 H 126/77 10/06/19 23:26 98.0 F 94 H 20 126/77 89 10/06/19 22:00 84 10/06/19 21:54 96 10/06/19 20:00 96 10/06/19 19:51 98.0 F 81 18 118/70 96 10/06/19 18:28 94 H 16 10/06/19 18:00 85 139/78 97 10/06/19 16:13 96 10/06/19 16:02 98.8 F 78 19 129/65 96 10/06/19 14:43 106 H 117/75 - Physical Examination General: No Apparent Distress HEENT: Positive: PERRL Neck: Positive: trachea midline Cardiac: Positive: Reg Rate and Rhythm Lungs: Positive: Decreased Breath Sounds Neuro: Positive: Grossly Intact Abdomen: Positive: Soft Skin: Positive: Clear Extremities: Absent: edema
[2019-10-07] MEDS: IPRATROPIUM/ALBUTEROL SULFATE 3 ML AMPUL.NEB IH SCH ×3 (10:59→21:07)
[2019-10-07] MEDS: ACETAMINOPHEN 325 MG TAB PO PRN ×2 (11:58→22:55)
[2019-10-07] MEDS: ASPIRIN 325 MG TAB PO SCH (11:58)
[2019-10-07] MEDS: ALPRAZolam 0.25 MG TAB PO PRN ×2 (11:58→22:55)
[2019-10-07] MEDS: cefTRIAXone/NS 1 GM/50 ML 1 GM/50 ML BAG IV SCH (12:01)
[2019-10-07] MEDS ORDERED: LORazepam 2 MG/ML VIAL IV ONE (13:43)
--- NOTE | 2019-10-07 14:52 | Magnetic Resonance Report ---
MR brain wo con INDICATION / CLINICAL INFORMATION: 59 years Female; MAIN. TECHNIQUE: Multiplanar, multisequence MR images of the brain were obtained. COMPARISON: None available. FINDINGS: BRAIN / INTRACRANIAL CONTENTS: The motion significantly degrades the image quality despite repeat jolynn ging and using a fast acquisition sequences. However, there appears to be extensive cerebral white ma tter disease most consistent with microvascular angiopathy. The diffusion imaging reveals no clear ev idence of acute territorial infarct. There is mild cerebral atrophy with associated mild prominence of the ventricular system. No definiti ve extra-axial fluid collections or significant mass effect is identified. CRANIOCERVICAL JUNCTION: There does not appear to be significant stenosis at the craniocervical junct ion. VASCULAR FLOW-VOIDS: The vascular structures grossly demonstrate appropriate signal voids. ORBITS: The orbits are obscured by the degree of motion though grossly unremarkable. SINUSES / MASTOIDS: The visualized paranasal sinuses appear pneumatized. ADDITIONAL FINDINGS: None. IMPRESSION: 1. The study is limited by motion. However, there is extensive microvascular angiopathy without clear evidence of acute infarction. Signer Name: Michoacano Soares MD Signed: 10/07/2019 2:47 PM Workstation Name: [id number]
--- NOTE | 2019-10-07 16:01 | Progress Note ---
Assessment and Plan Sustained SVT - wide complex tachycardia - started on metoprolol, consult cardiology - follow serial EKG, and CE - very suspicious for ventricular tachycardia. - planned for electrophysiology consultation and Lexiscan thallium stress test to assess for coronary ischemia as a basis for the recurrent wide-complex tachycardia. UTI (urinary tract infection) -Patient has been placed on empiric IV antibiotics. We will await urine cultur e result. Acute encephalopathy -Possibly secondary to the underlying UTI versus polypharmacy. Will monitor mental status. - CT head unremarkable, will also obtain MRI brain h/o paroxysmal atrial fib - cont BB for now - not on AC for h/o GI bleed Polypharmacy, likely -We will review patient's medications prior to discharge. - hold sedatives for now COPD, w/o exacerbation - nebs as needed, supplemental O2 with N/c -- DVT prophylaxis Patient placed on subcutaneous heparin. --Full code status Current Visit: Yes Status: Acute 10/05: remain confused, tearfull, does not follow commend, placed on restarinted. intermittently on SVTs on tle for minutes. started on BB, consult cardiology. also get MRI brain for AMS. 10/06: remain confused, had mRI brain today will follow result. planned for stress test tomorrow. change status to inpt for persistent AMS and life threatening wide complex tachycardia very suspicious for ventricular tachycardia. Brief history: 59 y/o female with h/o COPD, paroxysmal atrial fib w/o chronic AC for GI bleed presented to the hospital yesterday from the care home where she resides, with complaints of altered mental status from the care home staff, unable to be fully aroused. She was evaluated in the emergency room and admitted to the telemetry unit. On presentation, she was in the sinus rhythm, but today while being observed on telemetry and there were multiple, sustained runs of wide- complex tachycardia with right bundle branch morphology. Differential diagnosis included rapid atrial flutter with aberrant conduction versus sustained ventricular tachycardia. Laboratory exam shows the potassium level is normal at 4.0, TSH is mildly elevated at 5.7. Chest x-ray shows mild interstitial changes, which the radiologist describes as mostly chronic. Subjective Date of service: 10/07/19 Interval history: Patient seen and examined remains very confused and unable to follow commend no SVTs on tele patient is poor historian Restrained Objective - Exam Narrative Exam: General appearance: Present: mild distress, other (confused) - EENT Eyes: PERRL, EOM intact ENT: hearing intact, clear oral mucosa Ears: bilateral: normal - Neck Neck: supple, normal ROM - Respiratory Respiratory effort: normal Respiratory: bilateral: CTA - Cardiovascular Rhythm: other (tachycardic) Heart Sounds: Present: S1 & S2. Absent: gallop, rub Extremities: pulses intact, No edema, normal color, Full ROM - Gastrointestinal General gastrointestinal: Present: soft, non-tender, non-distended, normal bowel sounds - Integumentary Integumentary: clear, warm, dry - Musculoskeletal Musculoskeletal: 1, strength equal bilaterally - Neurologic Neurologic: moves all extremities - Psychiatric Psychiatric: no appropriate mood/affect, no intact judgment & insight, no memory intact - Constitutional Vitals: Vital Signs - 12hr 10/07/19 10/07/19 10/07/19 06:00 07:56 10:55 Temperature 98.0 F 97.5 F L Pulse Rate 69 71 72 Respiratory 150 H 20 Rate Blood Pressure 131/64 114/68 O2 Sat by Pulse 91 93 Oximetry - Labs CBC & Chem 7: 10/06/19 07:17 10/06/19 07:17 Labs: Abnormal lab results 10/06/19 10/07/19 Range/Units 20:09 11:49 Free T4 0.75 L (0.76-1.46) ng/dL Digoxin 0.3 L (0.9-2.0) ng/mL
[2019-10-08] MEDS: METOPROLOL TARTRATE 50 MG TAB PO SCH ×3 (02:01→17:26)
[2019-10-08] MEDS: LACTULOSE 20 GM/30 ML ORAL LIQD PO SCH ×4 (02:02→17:26)
[2019-10-08] MEDS: IPRATROPIUM/ALBUTEROL SULFATE 3 ML AMPUL.NEB IH SCH ×2 (08:28→21:18)
[2019-10-08] MEDS: cefTRIAXone/NS 1 GM/50 ML 1 GM/50 ML BAG IV SCH (10:12)
[2019-10-08] MEDS: ASPIRIN 325 MG TAB PO SCH (10:12)
--- NOTE | 2019-10-08 12:50 | Progress Note ---
Assessment and Plan Electrophysiology. I have evaluated patient and reviewed her medical records. My assessment and recommendations are as follows. Assessment: Episode of sustained wide-complex tachycardia which spontaneously resolved Based on telemetry strips, unclear if VT or SVT with aberrancy Patient did not have syncope and was hemodynamically stable during episode. Normal LVEF Metoprolol started after episode Hx of Paroxysmal Atrial flutter/afib/MAT not on anticoagulation secondary to history of melena and anemia as well as high fall risk. History of [place]/Coronary artery disease 07/2019 echo: normal LVEF 50-55% 2017 [facility]: [employer]TER of the RCA recommended for medical therapy. She did undergo PCI of the mid LAD using bare metal stent. Altered mental status -reason for admission Chronic respiratory failure and severe COPD on home oxygen Numerous hospitalizations in last 2 years UTI Recommend: Continue metoprolol and restart amiodarone Based on current mental status and chronic co-morbid conditions, she is not currently a candidate for invasive cardiac procedures. We will continue aggressive medical therapy and can re-evaluate if/when mental status improves Subjective Date of service: 10/08/19 Interval history: No acute events. No further sustained arrhythmias. Objective Vital Signs Temp Pulse Pulse Resp Resp BP Pulse Ox 10/08/19 08:29 95 10/08/19 08:28 82 18 10/08/19 08:13 98.9 F 70 20 116/71 90 10/08/19 06:00 56 L 10/08/19 05:01 56 L 10/08/19 04:11 98.0 F 18 129/59 10/08/19 02:01 66 122/62 10/07/19 23:50 98.0 F 66 18 122/62 94 10/07/19 21:11 96 10/07/19 21:08 94 10/07/19 21:07 80 16 10/07/19 20:00 94 10/07/19 19:13 98.0 F 70 20 116/66 94 10/07/19 19:12 69 10/07/19 18:37 88 10/07/19 18:35 88 18 - Physical Examination General: No Apparent Distress HEENT: Positive: PERRL Neck: Positive: trachea midline Cardiac: Positive: Reg Rate and Rhythm Lungs: Positive: Wheezes, Rhonchi Neuro: Positive: Grossly Intact Abdomen: Positive: Soft Skin: Positive: Clear Extremities: Absent: edema
[2019-10-08] MEDS: AMIODARONE 200 MG TAB PO SCH ×2 (14:00→22:46)
--- NOTE | 2019-10-08 16:35 | Progress Note ---
Assessment and Plan Patient is a 59 y/o woman w/ a h/o CAD, COPD, CHF, HTN, HLD, PAF, and depression, who p/w altered mental status. According to the patient's clinical findings, it is likely that she has metabolic encephalopathy, as she was found to have a UTI, hypercapnia, intermittent V-tach, and hyperammonemia on admission. Plan: 1. Metabolic Encephalopathy: - MRI Brain: No acute abnormalities - CT head: No acute abnormalities - Unable to perform EEG at this facility at this time. No clinical seizures witnessed. - Mental status is improved from admission, however still has some encephalopathy, which will likely improve with correction of metabolic abnormalities/infections. - Continue to correct infections an metabolic abnormalities per primary team. - Will sign off, as I am not covering neurology service over the weekend. Please consult neurologist covering the service over the weekend for further neurologic monitoring and management. If in-house neurologist is not abailable, recommend transferring patient to facility where neurology service is available for further management. Thank you for allowing me to take part in the care of this patient. Lorenzo Olson MD Neurology This clinical encounter was provided via live telemedicine platform. Consultative service was provided for neurology to support local providers. The Acute Teleneurology team should be contacted with any neurologic worsening or clinical changes, new test results, or new patient history that is reported to or discovered by the local team following completion of the teleneurology consultation, specifically that which has the potential to impact the cons ultative recommendations. Patient/Family was informed the Neurology Consult would happen via TeleHealth consult by way of interactive audio and video telecommunications and consented to receiving care in this manner. Due to the potential for life-threatening deterioration due to underlying neurologic illness, and limited resources available for patient care, telemedicine was used as means of patient care. Telemedicine consultation is limited in the extent of physical exam that can be virtually provided. Time spent evaluating patient includes time for face to face visit via telemedicine, review of medical records, imaging studies and discussion of findings with providers, the patient and/or family. Subjective Date of service: 10/08/19 Principal diagnosis: Metabolic encephalopathy Interval history: No acute events overnight. Objective - Exam Narrative Exam: Patient is alert, awake, oriented to self and year, and knows who the president is, follows 2-step commands. No dysarthria or aphasia noted. PERRL, EOMI, VFF, tongue midline, bilaterally intact to LT, no facial weakness noted. 5/5 strength in b/l UE, 5/5 in b/l LE. Bilaterally intact to light touch. - Vital Sign Vital Signs - 12hr 10/08/19 10/08/19 10/08/19 05:01 06:00 08:13 Temperature 98.9 F Pulse Rate 56 L 56 L 70 Pulse Rate [ Bilateral] Respiratory 20 Rate Respiratory Rate [Bilateral ] Blood Pressure 116/71 O2 Sat by Pulse 90 Oximetry 10/08/19 10/08/19 08:28 08:29 Temperature Pulse Rate Pulse Rate [ 82 Bilateral] Respiratory Rate Respiratory 18 Rate [Bilateral ] Blood Pressure O2 Sat by Pulse 95 Oximetry - Laboratory Findings CBC and BMP: 10/06/19 07:17 10/06/19 07:17 Abnormal Lab Findings: Abnormal Labs 10/05/19 10/05/19 10/05/19 17:40 17:40 17:40 Hct 43.6 H RDW 20.8 H Plt Count Lymph % (Auto) 7.4 L [place] % (Auto) 10.4 H Lymph # 0.7 L [place] # 1.0 H Seg Neutrophils % 81.7 H Seg Neutrophils # 8.1 H PT INR ABG HCO3 Oxyhemoglobin Chloride Creatinine 0.4 L Lactic Acid 0.60 L Calcium 7.4 L Ammonia Total Protein 4.6 L Albumin 1.9 L TSH Free T4 Urine WBC (Auto) Digoxin Salicylates Acetaminophen 10/05/19 10/05/19 10/05/19 17:40 17:40 17:40 Hct RDW Plt Count Lymph % (Auto) [place] % (Auto) Lymph # [place] # Seg Neutrophils % Seg Neutrophils # PT 15.8 H INR 1.24 H ABG HCO3 Oxyhemoglobin Chloride Creatinine Lactic Acid Calcium Ammonia 206.0 H Total Protein Albumin TSH 5.780 H Free T4 Urine WBC (Auto) Digoxin Salicylates Acetaminophen 10/05/19 10/05/19 10/05/19 17:40 17:40 18:50 Hct RDW Plt Count Lymph % (Auto) [place] % (Auto) Lymph # [place] # Seg Neutrophils % Seg Neutrophils # PT INR ABG HCO3 Oxyhemoglobin Chloride Creatinine Lactic Acid Calcium Ammonia Total Protein Albumin TSH Free T4 Urine WBC (Auto) 15.0 H Digoxin Salicylates < 0.3 L Acetaminophen 5.0 L 10/05/19 10/06/19 10/06/19 20:50 07:17 07:17 Hct RDW 21.3 H Plt Count 135 L Lymph % (Auto) 13.2 L [place] % (Auto) 14.3 H Lymph # 1.0 L [place] # 1.1 H Seg Neutrophils % 71.4 H Seg Neutrophils # PT 15.2 H INR 1.18 H ABG HCO3 27.5 H Oxyhemoglobin 93.8 L Chloride Creatinine Lactic Acid Calcium Ammonia Total Protein Albumin TSH Free T4 Urine WBC (Auto) Digoxin Salicylates Acetaminophen 10/06/19 10/06/19 10/06/19 07:17 13:11 20:09 Hct RDW Plt Count Lymph % (Auto) [place] % (Auto) Lymph # [place] # Seg Neutrophils % Seg Neutrophils # PT INR ABG HCO3 Oxyhemoglobin Chloride 108.0 H Creatinine 0.4 L Lactic Acid Calcium 7.6 L Ammonia 132.0 H Total Protein Albumin TSH Free T4 Urine WBC (Auto) Digoxin 0.3 L Salicylates Acetaminophen 10/07/19 11:49 Hct RDW Plt Count Lymph % (Auto) [place] % (Auto) Lymph # [place] # Seg Neutrophils % Seg Neutrophils # PT INR ABG HCO3 Oxyhemoglobin Chloride Creatinine Lactic Acid Calcium Ammonia Total Protein Albumin TSH Free T4 0.75 L Urine WBC (Auto) Digoxin Salicylates Acetaminophen
--- NOTE | 2019-10-08 16:52 | Progress Note ---
Assessment and Plan Sustained SVT - wide complex tachycardia - started on metoprolol, consulted cardiology - follow serial EKG, and CE - was very suspicious for ventricular tachycardia and planned for electrophysiology consultation and Lexiscan thallium stress test to assess for coronary ischemia as a basis for the recurrent wide-complex tachycardia. patient now NSR and stress test cancelled - cont medical mx for now UTI (urinary tract infection) -Patient has been placed on empiric IV antibiotics. We will await urine culture result. Acute encephalopathy - metabolic vs acute delirium -Possibly secondary to the underlying UTI versus polypharmacy. Will monitor mental status. - CT head unremarkable, negative MRI brain - consulted psych h/o paroxysmal atrial fib - cont BB for now - not on AC for h/o GI bleed Polypharmacy, likely -We will review patient's medications prior to discharge. - hold sedatives for now COPD, w/o exacerbation - nebs as needed, supplemental O2 with N/c -- DVT prophylaxis Patient placed on subcutaneous heparin. --Full code status Current Visit: Yes Status: Acute 10/05: remain confused, tearfull, does not follow commend, placed on restarinted. intermittently on SVTs on tle for minutes. started on BB, consult cardiology. also get MRI brain for AMS. 10/06: remain confused, had mRI brain today will follow result. planned for stress test tomorrow. change status to inpt for persistent AMS and life threatening wide complex tachycardia very suspicious for ventricular tachycardia. 10/07: stress test cancelled, patient more alert but remains confused. follow psych recommendation. ordered for covid test as she will be going back to SNF Brief history: 59 y/o female with h/o COPD, paroxysmal atrial fib w/o chronic AC for GI bleed presented to the hospital yesterday [facility], with complaints of altered mental status from the [facility] staff, unable to be fully aroused. She was evaluated in the emergency room and admitted to the telemetry unit. On presentation, she was in the sinus rhythm, but today while being observed on telemetry and there were multiple, sustained runs of wide- complex tachycardia with right bundle branch morphology. Differential diagnosis included rapid atrial flutter with aberrant conduction versus sustained aleyda tricular tachycardia. Laboratory exam shows the potassium level is normal at 4.0, TSH is mildly elevated at 5.7. Chest x-ray shows mild interstitial changes, which the radiologist describes as mostly chronic. Subjective Date of service: 10/08/19 Principal diagnosis: Metabolic encephalopathy Interval history: Patient seen and examined no SVTs on tele patient is poor historian Restrained, remains incoherent cancelled stress test Objective - Exam Narrative Exam: General appearance: Present: no distress, other (confused) - EENT Eyes: PERRL, EOM intact ENT: hearing intact, clear oral mucosa Ears: bilateral: normal - Neck Neck: supple, normal ROM - Respiratory Respiratory effort: normal Respiratory: bilateral: CTA - Cardiovascular Rhythm: NSR Heart Sounds: Present: S1 & S2. Absent: gallop, rub Extremities: pulses intact, No edema, normal color, Full ROM - Gastrointestinal General gastrointestinal: Present: soft, non-tender, non-distended, normal bowel sounds - Integumentary Integumentary: clear, warm, dry - Musculoskeletal Musculoskeletal: 1, strength equal bilaterally - Neurologic Neurologic: moves all extremities - Psychiatric Psychiatric: cooperative, no memory intact - Constitutional Vitals: Vital Signs - 12hr 10/08/19 10/08/19 10/08/19 05:01 06:00 08:13 Temperature 98.9 F Pulse Rate 56 L 56 L 70 Pulse Rate [ Bilateral] Respiratory 20 Rate Respiratory Rate [Bilateral ] Blood Pressure 116/71 O2 Sat by Pulse 90 Oximetry 10/08/19 10/08/19 10/08/19 08:28 08:29 16:26 Temperature 98.7 F Pulse Rate 68 Pulse Rate [ 82 Bilateral] Respiratory 20 Rate Respiratory 18 Rate [Bilateral ] Blood Pressure 119/61 O2 Sat by Pulse 95 90 Oximetry - Labs CBC & Chem 7: 10/06/19 07:17 10/06/19 07:17
[2019-10-09] MEDS: METOPROLOL TARTRATE 50 MG TAB PO SCH ×3 (03:08→18:13)
[2019-10-09] MEDS: LACTULOSE 20 GM/30 ML ORAL LIQD PO SCH ×5 (03:08→23:10)
[2019-10-09] MEDS: IPRATROPIUM/ALBUTEROL SULFATE 3 ML AMPUL.NEB IH SCH ×4 (07:35→21:35)
--- NOTE | 2019-10-09 08:54 | Consultation ---
History of Present Illness - Reason for Consult Consult date: 10/09/19 Reason for consult: MHE Requesting physician: HELIO MILLS - Chief Complaint Chief complaint: Altered mental status - History of Present Psychiatric Illness Per ED Provider: This is a 59-year-old female with history of COPD, CAD, CHF, GI bleed, hypertension, hyperlipidemia, depression, paroxysmal atrial fibrillation who presents from retirement home facility [facility] for altered mental status. Patient is currently nonverbal, appears lethargic. She arrived via EMS. PSYCH HPI Patient is a 59-year-old female with unknown past psychiatric history who was admitted to the facility from [facility] for altered mental status. Patient is alert and oriented place and time. Patient was able to correctly identify the current time using a wall analog clock. Patient stated that she knows she is in the hospital procedures been fearful and thinks she j ust might be about developing a mental problem now. Patient states that she wants to go home that there is someone named Shauna that she needs to take care of. PAST PSYCHIATRIC HISTORY Diagnoses: n/a Suicide attempts or Self-harm behavior: n/a Prior psychiatric hospitalizations: n/a Substance Abuse history:none reported Previous psychiatric medications tried: Outpatient treatment: PAST MEDICAL HISTORY: Family Psychiatric History: None reported or documented SOCIAL HISTORY Marital Status: Living Arrangements: unknown Employment Status: disabled Access to guns/weapons: none Education: college History of Abuse: none reported Legal History: none reported REVIEW OF SYSTEMS Constitutional: Negative for weight loss ENT: Negative for stridor Respiratory: Negative for cough or hemoptysis All other systems reviewed and are negative MENTAL STATUS EXAMINATION General Appearance and Behavior: Age appropriate, good hygiene, wearing appropriate clothes, lying in bed, good eye contact, cooperative polite with questioning. Cooperation: Participating Psychomotor Behavior: Psychomotor agitation Mood: Goo Affect and affective range: anxious Thought Process: Illogical Thought Content: Phobia Paranoid Speech: Normal volume, Regular rate and rhythm Suicidal Ideation: Denies SI Homicidal Ideation: Denies HI Impulse Control: Impaired Insight and Judgment: Impaired insight and judgment Memory:Prospective memory impaired Attention: Divided attention impaired Orientation: Alert, oriented and anxious Assessment and Plan - Psychiatric problem (1) Delirium due to another medical condition Current Visit: Yes Status: Acute RECOMMENDATIONS No acute psychosis, pt orientation and ability to tell wall clock time correctly shows delirium may be resolving. No signs of hallucination either. Window blinds up during daylight, no benzos or sedating medications during day time Patient to be reoriented and placed in martina eneida for at least 2 hours of the day MEDICATIONS: start olazanpin 2.5 mg, to be discontinued when delirium resolves. Risks, benefits and alternatives of medications discussed with the patient, questions answered and consent obtained from patient. PSYCHOTHERAPY: Supportive psychotherapy provided MEDICAL: Per primary team DELIRIUM PRECAUTIONS: Please re-orient patient frequently, keep lights on during the day, and minimize benzodiazepines and opiates as these medications could worsen patient's confusion. PIECE [employer] PACKER: Per medical team DISPOSITION: Per primary team; no indication for acute inpatient psychiatric hospitalization at this time LEGAL STATUS: Voluntary FOLLOW-UP: Will sign off Thank you for the consult. Please contact with any questions and/or concerns. Medications and Allergies Allergies Allergy/AdvReac Type Severity Reaction Status Date / Time clopidogrel [From Plavix] Allergy Unknown Verified 07/28/19 06:09 hydromorphone [From Dilaudid] Allergy Unknown Verified 09/28/18 21:25 phenobarbital Allergy Unknown Verified 09/28/18 21:25 Home Medications Medication Instructions Recorded Confirmed Last Taken Type HYDROcodone/APAP 5-325 [[place] 1 each PO Q8H PRN #10 tablet 07/08/19 10/06/19 U nknown Rx 5-325 mg TAB] dilTIAZem [Cardizem] 60 mg PO QID #120 tablet 07/30/19 10/06/19 Unknown Rx ALPRAZolam [Xanax TAB] 0.25 mg PO Q8H PRN tablet 08/07/19 10/06/19 Unknown Rx Amiodarone [Cordarone 200 MG TAB] 100 mg PO DAILY tablet 08/07/19 10/06/19 Unknown Rx Digoxin [Lanoxin] 0.125 mg PO DAILY@1700 tablet 08/07/19 10/06/19 Unknown Rx QUEtiapine [SEROquel] 300 mg PO BID tablet 08/07/19 10/06/19 Unknown Rx Active Meds: Active Medications Acetaminophen (Tylenol) 650 mg PO Q4H PRN PRN Reason: Pain MILD(1-3)/Fever >100.5/PRAJAPATI Last Admin: 10/07/19 22:55 Dose: 650 mg Documented by: Albuterol/Ipratropium (Duoneb *Not For Prn Use*) 1 ampul IH TIDRT [facility] Last Admin: 10/09/19 07:35 Dose: 1 ampul Documented by: Alprazolam (Xanax) 0.25 mg PO Q8H PRN PRN Reason: Anxiety Last Admin: 10/07/19 22:55 Dose: 0.25 mg Documented by: Amiodarone HCl (Cordarone) 200 mg PO BID [facility] Last Admin: 10/08/19 22:46 Dose: 200 mg Documented by: Aspirin (Aspirin) 325 mg PO QDAY [facility] Last Admin: 10/08/19 10:12 Dose: 325 mg Documented by: Atorvastatin Calcium (Lipitor) 40 mg PO QHS [facility] Last Admin: 10/08/19 22:46 Dose: 40 mg Documented by: Ceftriaxone Sodium (Rocephin/Ns 1 Gm/50 Ml) 1 gm in 50 mls @ 100 mls/hr IV Q24HR [facility]; Protocol Last Admin: 10/08/19 10:12 Dose: 100 mls/hr Documented by: Lactulose (Cephulac) 20 gm PO Q6HR [facility] Last Admin: 10/09/19 06:01 Dose: 20 gm Documented by: Magnesium Hydroxide (Milk Of Magnesia) 30 ml PO Q4H PRN PRN Reason: Constipation Metoprolol Tartrate (Metoprolol) 50 mg PO Q8H [facility] Last Admin: 10/09/19 03:08 Dose: 50 mg Documented by: Metoprolol Tartrate (Metoprolol) 5 mg IV Q4H PRN PRN Reason: Tachyarrhythmias Ondansetron HCl (Zofran) 4 mg IV Q8H PRN PRN Reason: Nausea And Vomiting Sodium Chloride (Sodium Chloride Flush Syringe 10 Ml) 10 ml IV BID [facility] Last Admin: 10/08/19 22:46 Dose: 10 ml Documented by: Sodium Chloride (Sodium Chloride Flush Syringe 10 Ml) 10 ml IV PRN PRN PRN Reason: LINE FLUSH Mental Status Exam - Vital signs Last Vital Signs Temp 97.9 F 10/09/19 08:17 Pulse 73 10/09/19 08:17 Resp 16 10/09/19 08:17 BP 109/64 10/09/19 08:17 Pulse Ox 96 10/09/19 08:17 Results Result Diagrams: 10/06/19 07:17 10/06/19 07:17 All other labs normal. Assessment and Plan - Psychiatric problem (1) Delirium due to another medical condition Current Visit: Yes Status: Acute
--- NOTE | 2019-10-09 10:00 | Progress Note ---
Assessment and Plan 1. Sustained wide QRS tachycardia 2. Paroxysmal atrial fibrillation/flutter 3. Coronary artery disease with normal left ventricular ejection fraction 50 to 55% 4. Chronic obstructive pulmonary disease Plan. Rhythm strips show patient to be in a sinus rhythm patient is hemodynamically stable. Will recommend continuing current medical management. Subjective Date of service: 10/09/19 Principal diagnosis: Metabolic encephalopathy Interval history: No cardiac symptoms Objective Vital Signs Temp Pulse Pulse Resp Resp BP Pulse Ox 10/09/19 08:17 97.9 F 73 16 109/64 96 10/09/19 07:46 71 20 10/09/19 07:35 93 10/09/19 03:53 98.0 F 68 18 98/73 13 L 10/09/19 03:08 65 128/54 10/09/19 00:29 98.0 F 18 128/54 10/09/19 00:14 72 10/08/19 21:21 97 10/08/19 21:18 65 15 10/08/19 19:18 98.0 F 70 20 126/75 94 10/08/19 16:26 98.7 F 68 20 119/61 90 10/08/19 14:00 65 - Physical Examination General: No Apparent Distress HEENT: Positive: PERRL Neck: Positive: trachea midline Cardiac: Positive: Regular Rate, S1/S2, PMI, Laterally Displaced. Negative: S3, S4 Lungs: Positive: clear to auscultation, No Wheeze, Rales, Rhonchi Neuro: Positive: Grossly Intact, Other (altered mental status) Abdomen: Positive: Soft Skin: Positive: Clear Extremities: Absent: edema
[2019-10-09] MEDS: ASPIRIN 325 MG TAB PO SCH (10:47)
[2019-10-09] MEDS: AMIODARONE 200 MG TAB PO SCH ×2 (10:47→21:59)
[2019-10-09] MEDS: cefTRIAXone/NS 1 GM/50 ML 1 GM/50 ML BAG IV SCH (10:48)
--- NOTE | 2019-10-09 16:04 | Progress Note ---
Assessment and Plan Sustained SVT - wide complex tachycardia - started on metoprolol, consulted cardiology - follow serial EKG, and CE - was very suspicious for ventricular tachycardia and planned for electrophysiology consultation and Lexiscan thallium stress test to assess for coronary ischemia as a basis for the recurrent wide-complex tachycardia. patient now NSR and stress test cancelled - cont medical mx for now UTI (urinary tract infection) -Patient has been placed on empiric IV antibiotics. We will await urine culture result. Acute encephalopathy - metabolic vs acute delirium -Possibly secondary to the underlying UTI versus polypharmacy. Will monitor mental status. - CT head unremarkable, negative MRI brain - consulted psych and started on olazanpin 2.5 mg po for delirium h/o paroxysmal atrial fib - cont BB for now - not on AC for h/o GI bleed Polypharmacy, likely -We will review patient's medications prior to discharge. - hold sedatives for now COPD, w/o exacerbation - nebs as needed, supplemental O2 with N/c -- DVT prophylaxis Patient placed on subcutaneous heparin. --Full code status Current Visit: Yes Status: Acute 10/05: remain confused, tearfull, does not follow commend, placed on restarinted. intermittently on SVTs on tle for minutes. started on BB, consult cardiology. also get MRI brain for AMS. 10/06: remain confused, had mRI brain today will follow result. planned for stress test tomorrow. change status to inpt for persistent AMS and life threatening wide complex tachycardia very suspicious for ventricular tachycardia. 10/07: stress test cancelled, patient more alert but remains confused. follow psych recommendation. ordered for covid test as she will be going back to SNF 10/08: patient now in a sinus rhythm, cardiology recommend continuing current medical management. placed on start olazanpin 2.5 mg po for delirium. order sitter at bedside. negative for covid 19. possible d/c back to SNF tomorrow Brief history: 59 y/o female with h/o COPD, paroxysmal atrial fib w/o chronic AC for GI bleed presented to the hospital yesterday from the [facility] where [facility], with complaints of altered mental status from the [facility] staff, unable to be fully aroused. She was evaluated in the emergency room and admitted to the telemetry unit. On presentation, she was in the sinus rhythm, but today while being observed on telemetry and there were multiple, sustained runs of wide- complex tachycardia with right bundle branch morphology. Differential diagnosis included rapid atrial flutter with aberrant conduction versus sustained ventricular tachycardia. Laboratory exam shows the potassium level is normal at 4.0, TSH is mildly elevated at 5.7. Chest x-ray shows mild interstitial changes, which the radiologist describes as mostly chronic. Subjective Date of service: 10/09/19 Principal diagnosis: Metabolic encephalopathy Interval history: Patient seen and examined no SVTs on tele patient is poor historian, remains incoherent tolerating diet, follows commend Objective - Exam Narrative Exam: General appearance: Present: no distress, other (confused) - EENT Eyes: PERRL, EOM intact ENT: hearing intact, clear oral mucosa Ears: bilateral: normal - Neck Neck: supple, normal ROM - Respiratory Respiratory effort: normal Respiratory: bilateral: CTA - Cardiovascular Rhythm: NSR Heart Sounds: Present: S1 & S2. Absent: gallop, rub Extremities: pulses intact, No edema, normal color, Full ROM - Gastrointestinal General gastrointestinal: Present: soft, non-tender, non-distended, normal bowel sounds - Integumentary Integumentary: clear, warm, dry - Musculoskeletal Musculoskeletal: 1, strength equal bilaterally - Neurologic Neurologic: moves all extremities - Psychiatric Psychiatric: cooperative, no memory intact - Constitutional Vitals: Vital Signs - 12hr 10/09/19 10/09/19 10/09/19 07:35 07:46 08:17 Temperature 97.9 F Pulse Rate 73 Pulse Rate [ 71 Bilateral] Respiratory 16 Rate Respiratory 20 Rate [Bilateral ] Blood Pressure 109/64 O2 Sat by Pulse 93 96 Oximetry 10/09/19 10/09/19 10/09/19 10:00 10:51 12:26 Temperature 97.9 F Pulse Rate 73 70 Pulse Rate [ Bilateral] Respiratory 18 18 Rate Respiratory Rate [Bilateral ] Blood Pressure 109/64 103/47 O2 Sat by Pulse 99 Oximetry 10/09/19 13:37 Temperature Pulse Rate Pulse Rate [ 70 Bilateral] Respiratory Rate Respiratory 18 Rate [Bilateral ] Blood Pressure O2 Sat by Pulse Oximetry - Labs CBC & Chem 7: 10/06/19 07:17 10/06/19 07:17
[2019-10-09] MEDS: OMEGA-3 FATTY ACIDS/FISH OIL 1 GRAM CAP PO SCH (21:58)
[2019-10-09] MEDS ORDERED: MELATONIN 5 MG TAB PO SCH (22:00)
[2019-10-09] MEDS: ALPRAZolam 0.25 MG TAB PO PRN (22:12)
[2019-10-10] MEDS: METOPROLOL TARTRATE 50 MG TAB PO SCH ×2 (01:22→11:57)
[2019-10-10] MEDS: LACTULOSE 20 GM/30 ML ORAL LIQD PO SCH ×2 (05:42→11:58)
[2019-10-10] MEDS: IPRATROPIUM/ALBUTEROL SULFATE 3 ML AMPUL.NEB IH SCH ×2 (08:55→16:29)
[2019-10-10] MEDS: OMEGA-3 FATTY ACIDS/FISH OIL 1 GRAM CAP PO SCH (09:41)
[2019-10-10] MEDS: AMIODARONE 200 MG TAB PO SCH (09:41)
[2019-10-10] MEDS: ASPIRIN 325 MG TAB PO SCH (09:41)
[2019-10-10] MEDS: cefTRIAXone/NS 1 GM/50 ML 1 GM/50 ML BAG IV SCH (09:42)
--- NOTE | 2019-10-10 10:13 | Progress Note ---
Assessment and Plan 1. Sustained wide QRS tachycardia 2. Paroxysmal atrial fibrillation/flutter 3. Coronary artery disease with normal left ventricular ejection fraction 50 to 55% 4. Chronic obstructive pulmonary disease Plan. Rhythm strips show patient to be in a sinus rhythm patient is hemodynamically stable. Will recommend continuing current medical management. Subjective Date of service: 10/10/19 Principal diagnosis: Metabolic encephalopathy Interval history: No cardiac symptoms still confused Objective Vital Signs Temp Pulse Pulse Resp Resp BP Pulse Ox 10/10/19 09:41 64 113/64 10/10/19 08:33 99.6 F 64 17 113/64 89 10/10/19 04:58 98.2 F 68 20 119/66 84 10/10/19 01:22 66 113/75 10/10/19 01:08 98.2 F 20 113/75 10/10/19 00:00 59 L 10/09/19 22:55 98.5 F 68 16 86/51 91 10/09/19 22:00 20 10/09/19 20:06 97.9 F 70 16 152/60 92 10/09/19 18:13 68 107/62 10/09/19 16:18 97.9 F 63 16 107/62 92 10/09/19 16:00 70 10/09/19 13:37 70 18 10/09/19 12:26 97.9 F 70 18 103/47 99 10/09/19 10:51 73 109/64 - Physical Examination General: No Apparent Distress HEENT: Positive: PERRL Neck: Positive: trachea midline Cardiac: Positive: Regular Rate, S1/S2, PMI, Laterally Displaced. Negative: S3, S4 Lungs: Positive: clear to auscultation, No Wheeze, Rales, Rhonchi Neuro: Positive: Grossly Intact, Other (altered mental status) Abdomen: Positive: Soft, Active Bowel Sounds Skin: Positive: Clear Extremities: Absent: edema
[2019-10-10 11:58] VITALS: BP 120/87
--- NOTE | 2019-10-10 11:59 | Discharge Summary ---
Providers - Providers Date of Admission: 10/07/19 15:03 Date of discharge: 10/10/19 Attending physician: HELIO MILLS 10/06/19 13:17 Consult to Physician [CONS] Routine Comment: Consulting Provider: MONTANA FLORES Physician Instructions: Reason For Exam: AMS 10/06/19 14:11 Consult to Physician [CONS] Routine Comment: Consulting Provider: JENNA MATTHEWS Physician Instructions: Reason For Exam: SVT 10/08/19 09:58 Physical Therapy Evaluation and Treat [CONS] Routine Comment: Reason For Exam: placement 10/08/19 16:52 Consult to Mental Health [CONS] Routine Reason For Exam: delirium Primary care physician: BRANCH MECHANIC Hospitalization Condition: Stable Pertinent studies: CXR head CT Brain MRI Hospital course: 59 y/o female with h/o COPD, paroxysmal atrial fib w/o chronic AC for GI bleed presented to the hospital on 10/05/19 from the [facility] where she [facility], with complaints of altered mental status from the [facility] staff, unable to be fully aroused. She was evaluated in the emergency room and admitted to the telemetry unit. On presentation, she was in the sinus rhythm, but today while being observed on telemetry and there were multiple, sustained runs of wide- complex tachycardia with right bundle branch morphology. Differential diagnosis included rapid atrial flutter with aberrant conduction versus sustained ventricular tachycardia. Laboratory exam shows the potassium level is normal at 4.0, TSH is mildly elevated at 5.7. Chest x-ray shows mild interstitial changes, which the radiologist describes as mostly chronic. daily course; 10/05: remain confused, tearfull, does not follow commend, placed on restarinted. intermittently on SVTs on tle for minutes. started on BB, consult cardiology. also get MRI brain for AMS. 10/06: remain confused, had mRI brain today will follow result. planned for stress test tomorrow. change status to inpt for persistent AMS and life threatening wide complex tachycardia very suspicious for ventricular tachycardia. 10/07: stress test cancelled, patient more alert but remains confused. MRI brain had no new findings. follow psych recommendation. ordered for covid test as she will be going back to SNF 10/08: patient now in a sinus rhythm, cardiology recommend continuing current medical management. placed on start olazanpin 2.5 mg po for delirium. order sitter at bedside. negative for covid 19. possible d/c back to SNF tomorrow 10/09: clinically stable, follows commend. discharge back to SNF today. Discharge diagnosis: Sustained SVT - wide complex tachycardia - started on metoprolol, consulted cardiology - was very suspicious for ventricular tachycardia and planned for electrophysiology consultation and Lexiscan thallium stress test to assess for coronary ischemia as a basis for the recurrent wide-complex tachycardia. patient now NSR and stress test cancelled - cont medical mx for now UTI (urinary tract infection) with gm -ve rods, treated with abx Acute encephalopathy - metabolic vs acute delirium -Possibly secondary to the underlying UTI versus polypharmacy - CT head unremarkable, negative MRI brain - consulted psych and started on olazanpin 2.5 mg po for delirium h/o paroxysmal atrial fib - cont BB and amioderone for now - not on AC for h/o GI bleed Polypharmacy, likely - hold sedatives for now COPD, w/o exacerbation - nebs as needed, supplemental O2 with N/c -- DVT prophylaxis Patient placed on subcutaneous heparin. Disposition: [id number]/[id number] Time spent for discharge: 34 minutes Core Measure Documentation - Palliative Care Palliative Care/ Comfort Measures: Not Applicable - Core Measures Any of the following diagnoses?: none Exam - Physical Exam Narrative exam: General appearance: Present: no distress, - EENT Eyes: PERRL, EOM intact ENT: hearing intact, clear oral mucosa Ears: bilateral: normal - Neck Neck: supple, normal ROM - Respiratory Respiratory effort: normal Respiratory: bilateral: CTA - Cardiovascular Rhythm: NSR Heart Sounds: Present: S1 & S2. Absent: gallop, rub Extremities: pulses intact, No edema, normal color, Full ROM - Gastrointestinal General gastrointestinal: Present: soft, non-tender, non-distended, normal bowel sounds - Integumentary Integumentary: clear, warm, dry - Musculoskeletal Musculoskeletal: 1, strength equal bilaterally - Neurologic Neurologic: moves all extremities - Psychiatric Psychiatric: cooperative, no memory intact - Constitutional Vitals: Temp Pulse Resp BP Pulse Ox 98.6 F 70 17 159/49 90 10/10/19 11:00 10/10/19 11:00 10/10/19 11:00 10/10/19 11:00 10/10/19 11:00 Plan Activity: fall precautions Weight Bearing Status: Non-Weight Bearing Diet: low fat, low salt Special Instructions: home oxygen via Follow up with: PRIMARY CAREMD [Primary Care Provider] - 3-5 Days JENNA MTATHEWS MD [Staff Physician] - 7 Days Prescriptions: ALPRAZolam [Xanax TAB] 0.25 mg PO Q8H PRN #10 tablet PRN Reason: Anxiety
== END 2019-10-10 15:42 | DRG 689 ==
LOC: ED 16:52 → 4A 22:15 → OBSVTOIN 10-07 15:03
PROVIDERS: ADMIT Internal Medicine Geriatric Medicine; ATTEND Internal Medicine
PROC: 4A033R1 Measurement of Arterial Saturation, Peripheral, Percutaneous Approach (ICD-10-PCS; principal; 2019-10-05)
DX: N39.0 Urinary tract infection, site not specified (principal); G93.41 Metabolic encephalopathy; I47.1 Supraventricular tachycardia; I48.92 Unspecified atrial flutter; Z79.899 Other long term (current) drug therapy; J44.9 Chronic obstructive pulmonary disease, unspecified; I25.10 Atherosclerotic heart disease of native coronary artery without angina pectoris; I11.0 Hypertensive heart disease with heart failure; I50.9 Heart failure, unspecified; I48.0 Paroxysmal atrial fibrillation; R41.0 Disorientation, unspecified; F17.200 Nicotine dependence, unspecified, uncomplicated; K21.9 Gastro-esophageal reflux disease without esophagitis; F32.9 Major depressive disorder, single episode, unspecified; Z95.5 Presence of coronary angioplasty implant and graft; Z90.710 Acquired absence of both cervix and uterus; Z88.5 Allergy status to narcotic agent; Z88.8 Allergy status to other drugs, medicaments and biological substances; I25.2 Old myocardial infarction; Z03.818 Encounter for observation for suspected exposure to other biological agents ruled out
CPT/HCPCS: 36415; 36600; 70450; 70551; 71045; 80048; 80053; 80162; 80320; 81001; 82140; 82803; 82962; 83735; 84439; 84443; 85025; 85610; 85730; 87040; 87086; 93005; 94640; 94760; G0378; A9270-GY; G0480; J0282; J0696; J2060; J2310; U0003-CS